=== PATIENT | male | born 1940 | race American Indian/Alaskan Native ===

== ENCOUNTER 2018-08-12 21:00 | Inpatient (IN) | payer MEDICARE ==
[~2018-08-12 21:00] MED LIST: INTROPIN DRIP 800 MG/D5W 250 ML 800 MG/250 ML BAG IV ONE
--- NOTE | 2018-08-12 21:19 | Emergency Department Report ---
ED General Adult HPI - General Chief complaint: Cardiac Arrest/CPR Stated complaint: CARDIAC ARREST Time Seen by Provider: 08/12/18 21:12 Source: EMS Mode of arrival: Stretcher Limitations: Other - History of Present Illness Initial comments: 77 y.o. male with a history of respiratory failure with a trach present, metabolic encephalopathy, hemiplegia status post CVA presents after being found unresponsive at his longterm. Per EMS patient initially was being bagged via his trach that was without a pulse and had return of spontaneous circulation. Patient then lost his pulse again in route and had return of spontaneous regulation again. Upon arrival here in emergency room patient again was noted to be without a pulse. - Related Data Allergies Allergy/AdvReac Type Severity Reaction Status Date / Time No Known Allergies Allergy Verified 08/12/18 21:47 ED Review of Systems ROS: Stated complaint: CARDIAC ARREST Other details as noted in HPI Comment: Unobtainable due to pts medical conditions (unresponsive state) Constitutional: denies: chills, fever Eyes: denies: eye pain, eye discharge, vision change ENT: denies: ear pain, throat pain Respiratory: denies: cough, shortness of breath, wheezing Cardiovascular: denies: chest pain, palpitations Endocrine: no symptoms reported Gastrointestinal: denies: abdominal pain, nausea, diarrhea Genitourinary: denies: urgency, dysuria Musculoskeletal: denies: back pain, joint swelling, arthralgia Skin: denies: rash, lesions Neurological: denies: headache, weakness, paresthesias Psychiatric: denies: anxiety, depression Hematological/Lymphatic: denies: easy bleeding, easy bruising ED Physical Exam - General Limitations: Other General appearance: other (Unresponsive; ) - Head Head exam: Present: atraumatic - Eye Eye exam: Present: other (fixed and dilated ) - ENT ENT exam: Present: other (dry oropharynx) - Neck Neck exam: Present: other (tracheostomy present with no surrounding erythema or exudate) - Respiratory Respiratory exam: Present: other (breath sounds appreciated with bag valve mask ventilation) - Cardiovascular Cardiovascular Exam: Present: other (no pulse present in carotid, femoral , or radial distribution) - GI/Abdominal GI/Abdominal exam: Present: distended, other (PEG tube present with no surrounding erythema or exudate) - Extremities Exam Extremities exam: Present: other (1+ edema present bilaterally) - Neurological Exam Neurological exam: Present: other (GCS 3T; No purposeful movement) - Skin Skin exam: Present: warm. Absent: rash - Central Line Placement Left Femoral Consent Obtained: emergent situation Time Out Performed: Yes Patient Placed on Monitor/Pulse Ox: Yes MD Prep: mask, gown, gloves Central Line Prep: Chlorhexidine scrub Ultrasound Used for Placement: Yes Central Line Lumen Inserted: triple Central Line Position: good blood return, all ports aspirated, flus, sutured in place with 3-0 Patient Tolerated Procedure: well - Chest Tube Chest Tube Location: fifth interspace Size of Turkish Tube (cm): 10 Chest Tube Procedure: betadine prep Anesthesia: 1% Lidocaine Number of Attempts: 1 Time of Successful Intubation: 22:45 Tube Drainage: see nurses notes Tube Sutured to Skin: Yes Post Procedure CXR?: Yes - Intubation Time Out Performed: Yes Laryngoscope: Vivian Size: 4 Tube Placement Confirmation: visualized tube passing t Patient Tolerated Procedure: well, other (pneumothorax; right main stem bronchus placement of ETT) Intubation Complications: difficult intubation ED Medical Decision Making - Lab Data Result diagrams: 08/12/18 21:44 08/12/18 21:44 - EKG Data EKG shows normal: sinus rhythm Rate: tachycardia - EKG Data Interpretation: other (ST elevation in III, and AVF) - Medical Decision Making Case discussed with interventional cardiology who states the patient is a STEMI but patient should be medically managed. Patient noted to have a trach present but despite bagging via the tracheostomy patient continued to have low tidal volumes. The suspicion was that the patient may have had a leak present as he continued to develop subcutaneous emphysema. The decision was made then to intubate the patient orally. After this was achieved patient achieved better tidal volumes. On post intubation x-ray patient was noted to have the presence of a right pneumothorax. She received a percutaneous chest tube here in emergency department which was attached to the Heimlich valve. Patient had reexpansion of the lung with this procedure. - Differential Diagnosis STEMI; NSTEMI; Dehydration; Anemia; Critical Care Time: Yes Critical care time in (mins) excluding proc time.: 70 Critical care attestation.: If time is entered above; I have spent that time in minutes in the direct care of this critically ill patient, excluding procedure time. Critical care time includes time spent with direct bedside care, physician consultation, and frequent reassessments. ED Disposition Clinical Impression: Cardiac arrest, Hypernatremia, Hypotension, Myocardial infarct, Pneumothorax Disposition: DC-09 OP ADMIT IP TO THIS HOSP Is pt being admited?: Yes Does the pt Need Aspirin: No Condition: Critical Referrals: JARETT BALLESTEROS MD [Primary Care Provider] - 3-5 Days Time of Disposition: 00:42
[2018-08-12] MEDS ORDERED: NACL 0.9% 1000 ML 1,000 ML IV ONE (21:21)
[2018-08-12] MEDS ORDERED: LEVOPHED DRIP 4 MG/NS 250 ML 4 MG/250 ML BAG IV ONE ×2 (21:48→23:48)
[2018-08-12 21:57] LABS: Hematocrit 28.9 % (35.5-45.6); Hemoglobin 8.8 gm/dl (11.8-15.2); Mean Corpuscular HGB Conc 31 % (32-34); Mean Corpuscular Volume 92 fl (84-94); Platelet Count 180 K/mm3 (140-440); Red Blood Count 3.12 M/mm3 (3.65-5.03); Red Cell Distribution Width 19.5 % (13.2-15.2)
[2018-08-12 22:01] LABS: Amphetamine Screen,Urine PRESUMPTIVE NEGATIVE; Benzodiazepines Screen,Urine PRESUMPTIVE NEGATIVE; Cannabinoid Screen,Urine PRESUMPTIVE NEGATIVE; Cocaine Screen,Urine PRESUMPTIVE NEGATIVE; Methadone Screen,Urine PRESUMPTIVE NEGATIVE; Opiate Screen,Urine PRESUMPTIVE NEGATIVE
[2018-08-12 22:07] LABS: INR 1.37 (0.87-1.13)
[2018-08-12 22:08] LABS: Partial Thromboplastin Time 35.4 Sec. (24.2-36.6)
[2018-08-12 22:15] LABS: Creatine Kinase MB 2.6 ng/mL (0.0-4.0)
[2018-08-12 22:16] LABS: Calcium 8.6 mg/dL (8.4-10.2)
--- NOTE | 2018-08-12 22:26 | XRay Report ---
PROCEDURE: XR CHEST 1V AP TECHNIQUE: Chest radiograph single view. HISTORY: chest pain COMPARISONS: None . FINDINGS: Heart: Normal. Mediastinum/Vessels: Normal. Lungs/Pleural space: There is a moderate right pneumothorax. There is no pleural effusion.. Bony thorax: No acute osseous abnormality. Life support devices: Endotracheal tube is in the right mainstem bronchus and should be pulled back 4 cm. There is diffuse subcutaneous emphysema.. IMPRESSION: Heart size is normal.. There is a moderate right pneumothorax. There is no pleural effusion.. Endotracheal tube is in the right mainstem bronchus and should be pulled back 4 cm. There is diffuse subcutaneous emphysema.. Dr. Ibrahim was notified by telephone at 10:20 PM This document is electronically signed by Juan Redd MD., Aug 12 2018 10:24:06 PM ET
[2018-08-12 22:30] LABS: Total Cells Counted 100
[2018-08-12 22:31] LABS: Basophils % (Manual) 0 % (0.0-1.8); Myelocytes # (Manual) 0.6 K/mm3
[2018-08-12 22:32] LABS: Platelet Estimate Consistent w Auto
[2018-08-12 22:33] LABS: Anisocytosis Few; Ovalocytes Few
[2018-08-12] MEDS ORDERED: XYLOCAINE 2% INFILTRATI ONE (22:45)
--- NOTE | 2018-08-12 23:31 | XRay Report ---
PROCEDURE: XR CHEST 1V AP TECHNIQUE: Chest radiograph single view. HISTORY: chest pain COMPARISONS: None . FINDINGS: ET tube is been repositioned. Tip appears in satisfactory position above the denton. Previously ident ified right pneumothorax is again noted which appears smaller. Again noted is marked subcutaneous emp hysema throughout the chest and extending to the base of the neck. IMPRESSION: ET tube appears in satisfactory position. Right pneumothorax appears smaller on the current study Marked subcutaneous emphysema This document is electronically signed by Aroldo Moore MD., Aug 12 2018 11:29:14 PM ET
[2018-08-12] MEDS ORDERED: NACL 0.45% 1000 ML 1,000 ML IV SCH (23:45)
--- NOTE | 2018-08-13 00:30 | Cat Scan Report ---
PROCEDURE: CT HEAD/BRAIN WO CON TECHNIQUE: Computerized tomography of the head was performed without contrast material. CT DOSE LENGTH PRODUCT: mGycm HISTORY: unresponsive COMPARISONS: None . FINDINGS: There is diffuse subcutaneous emphysema of the face and neck and temporal scalp regions bilaterally. Skull and scalp: There is no skull fracture. . Paranasal sinuses: Normal . Ventricles and subarachnoid spaces: There is advanced central and cortical atrophy. . Cerebrum: No evidence of hemorrhage, acute infarction or mass . There is chronic deep white matter i schemic gliosis. There there are old lacunar infarct effects in the basal ganglia and thalami bilater ally. Cerebellum and brainstem: No evidence of hemorrhage, acute infarction or mass . Vasculature: There is calcified plaque in the cavernous portions of the internal carotid arteries. . IMPRESSION: There is diffuse subcutaneous emphysema of the face and neck and temporal scalp regions bilaterally. There is no skull fracture. There is advanced central and cortical atrophy. . There is no acute intracranial hemorrhage, edema, mass, mass effect or midline shift. There is chronic deep white matter ischemic gliosis. There are old lacunar infarct effects in the bas al ganglia and thalami bilaterally. This document is electronically signed by Juan Redd MD., Aug 13 2018 12:27:51 AM ET
[2018-08-13] MEDS ORDERED: HEPARIN 10,000 UNITS/10 ML IV ONE (00:40)
[2018-08-13 01:03] LABS: Creatine Kinase MB 7.7 ng/mL (0.0-4.0)
[2018-08-13 01:05] LABS: Hematocrit 29.6 % (35.5-45.6); Hemoglobin 9.2 gm/dl (11.8-15.2)
[2018-08-13 01:12] LABS: Bacteria,Urine 2+ /HPF (Negative); Bilirubin,Urine NEG (Negative); Blood,Urine MOD (Negative); Color,Urine Yellow (Yellow); Urobilinogen,Urine < 2.0 mg/dL (<2.0)
[2018-08-13 01:13] LABS: RBC,Urine > 182.0 /HPF (0.0-6.0); WBC,Urine > 182.0 /HPF (0.0-6.0)
[2018-08-13 01:16] LABS: INR 1.25 (0.87-1.13)
[2018-08-13 01:17] LABS: Partial Thromboplastin Time 37.3 Sec. (24.2-36.6)
[2018-08-13] MEDS ORDERED: SODIUM CHLORIDE FLUSH SYRINGE 10 ML IV PRN (01:34)
[2018-08-13] MEDS ORDERED: D50W (25GM) Syringe IV PRN (01:34)
[2018-08-13] MEDS: HEPARIN/ 0.45% NACL-25,000 UNIT/500 ML 25,000 UNIT/500 ML BAG IV SCH (01:34)
[2018-08-13] MEDS ORDERED: TYLENOL PO PRN (01:34)
[2018-08-13] MEDS ORDERED: ZOFRAN IV PRN (01:34)
[2018-08-13] MEDS: LEVOPHED DRIP 4 MG/NS 250 ML 4 MG/250 ML BAG IV SCH ×3 (01:40→22:30)
--- NOTE | 2018-08-13 01:47 | History and Physical Report ---
History of Present Illness Date of examination: 08/13/18 History of present illness: This is a 77-year-old man with history of CVA, diabetes, seizure, chronic respiratory failure was sent from the care home for cardiac arrest. CPR was started feeling continued in the emergency room. The patient was hypotensive, started on dopamine, Levophed drip. He has a trach, PEG. When he arrived in the emergency room, the trach had a leak, he subsequently had to be intubated. While he was being bagged in the emergency room, he developed subcutaneous emphysema of the face, neck. Patient was found to have a pneumothorax, chest tube was placed. Patient was admitted at [facility] on May 04, he spent 5 weeks there, family state that he had fluid on the brain, he was subsequently trached and pegged and transferred to long-term care facility, he was eating, talking. He was then transferred to care home, he been for 2 weeks now. Review of system is unobtainable PAST MEDICAL HISTORY: CVA, diabetes, seizure PAST SURGICAL HISTORY: PEG SOCIAL HISTORY: Denies alcohol, drugs, tobacco FAMILY HISTORY: Hypertension Medications and Allergies Allergies Allergy/AdvReac Type Severity Reaction Status Date / Time No Known Allergies Allergy Verified 08/12/18 21:47 Home Medications Medication Instructions Recorded Confirmed Last Taken Type Acetaminophen TAB 2 1000units FEEDTUBE Q6HR PRN 08/18/18 08/18/18 Unknown History Amantadine [Symmetrel] 100 mg FEEDTUBE DAILY 08/18/18 08/18/18 08/13/18 History Amlodipine Besylate [Norvasc] 5 mg FEEDTUBE DAILY 08/18/18 08/18/18 08/13/18 History Ascorbic Acid [Vitamin C Oral Liq] 500 mg FEEDTUBE QDAY 08/18/18 08/18/18 08/13/18 History Ascorbic Acid [Vitamin C with Fiordaliza 1 tab FEEDTUBE DAILY 08/18/18 08/18/18 Unknown History Hips] Aspirin BABY CHEW TAB 1 tab FEEDTUBE DAILY 08/18/18 08/18/18 Unknown History Aspirin BABY CHEW TAB 81 mg FEEDTUBE DAILY 08/18/18 08/18/18 08/13/18 History Atorvastatin Calcium [Lipitor] 40 mg FEEDTUBE DAILY 08/18/18 08/18/18 08/13/18 History Benazepril HCl 10 mg FEEDTUBE DAILY 08/18/18 08/18/18 08/13/18 History Bisacodyl [Dulcolax suppos] 10 mg DC QDAY PRN 08/18/18 08/18/18 Unknown History Docusate Sodium [Colace ORAL LIQ] 100 mg FEEDTUBE QDAY PRN 08/18/18 08/18/18 Unknown History Ferrous Sulfate [Ferrous Sulfate 7.5 ml FEEDTUBE DAILY 08/18/18 08/18/18 08/13/18 History 220 MG/5 ML] Glycopyrrolate [Robinul] 2 mg FEEDTUBE Q8H 08/18/18 08/18/18 08/13/18 History Heparin Sod,Porcine/0.9 % NaCl 5,000 units SUB-Q Q8H 08/18/18 08/18/18 Unknown History [Heparin 5,000 Unit/5 ml-Ns] Insulin Glargine,Hum.rec.anlog 40 unit SQ HS 08/18/18 08/18/18 08/12/18 History [Basaglar Kwikpen U-100] Lacosamide [Vimpat] 1 tab FEEDTUBE Q12HR 08/18/18 08/18/18 Unknown History Lipitor 10 mg FEEDTUBE DAILY 08/18/18 08/18/18 Unknown History Mag-Al Plus Suspension 5 ml FEEDTUBE Q4HR PRN 08/18/18 08/19/18 Unknown History Melatonin 3 mg FEEDTUBE HS 08/18/18 08/18/18 Unknown History Sucralfate [Carafate] 1 gm FEEDTUBE Q8H 08/18/18 08/18/18 08/13/18 History Tamsulosin 0.4 mg FEEDTUBE DAILY 08/18/18 08/18/18 Unknown History guaiFENesin 200 mg FEEDTUBE Q4H PRN 08/18/18 08/18/18 Unknown History Active Meds: Active Medications Acetaminophen (Tylenol) 650 mg PO Q4H PRN PRN Reason: Pain MILD(1-3)/Fever >100.5/GREY Dextrose (D50w (25gm) Syringe) 50 ml IV PRN PRN PRN Reason: Hypoglycemia Sodium Chloride (Nacl 0.45% 1000 Ml) 1,000 mls @ 150 mls/hr IV DIRECT LENCHO Heparin Sodium/Sodium Chloride (Heparin/ 0.45% Nacl-25,000 Unit/500 Ml) 25,000 unit in 500 mls @ 20 mls/hr IV TITRATE LENCHO; Protocol Last Admin: 08/13/18 01:34 Dose: 1,000 units/hr, 20 mls/hr Documented by: Dopamine HCl/Dextrose (Intropin Drip 800 Mg/D5w 250 Ml) 800 mg in 250 mls @ 2.722 mls/hr IV TITR ONE; Protocol Stop: 08/16/18 16:50 Last Admin: 08/12/18 21:50 Dose: 20 mcg/kg/min, 27.216 mls/hr Documented by: Norepinephrine (Levophed Drip 4 Mg/Ns 250 Ml) 4 mg in 250 mls @ 7.5 mls/hr IV TITR LENCHO; Protocol Last Admin: 08/13/18 01:40 Dose: 20 mcg/min, 75 mls/hr Documented by: Piperacillin Sod/Tazobactam Sod (Zosyn/Ns 3.375gm/50ml) 3.375 gm in 50 mls @ 100 mls/hr IV Q8HR LENCHO; Protocol Sodium Bicarbonate 150 meq/ (Dextrose) 1,150 mls @ 100 mls/hr IV DIRECT LENCHO Insulin Human Lispro (Humalog) 0 unit SUB-Q Q6HR LENCHO; Protocol Ondansetron HCl (Zofran) 4 mg IV Q8H PRN PRN Reason: Nausea And Vomiting Sodium Chloride (Sodium Chloride Flush Syringe 10 Ml) 10 ml IV BID LENCHO Sodium Chloride (Sodium Chloride Flush Syringe 10 Ml) 10 ml IV PRN PRN PRN Reason: LINE FLUSH Exam - Physical Exam Narrative exam: General Apperance: The patient lying in bed, breathing comfortable, intubated HEENT: Normocephalic, atraumatic. Pupils equally round and reactive to light, unable to do EOM, no sclericterus or JVD or thyromegaly or nodule. , no carotid bruit, mucous membranes moist, unable to examine oral cavity, ET tube in place Heart: S1-S2, regular is rhythm Lungs: Clear to auscultation bilaterally, breathing comfortable Abdomen: Positive bowel sounds, soft, nondistended, no organomegaly Extremities: No edema cyanosis clubbing Skin: no rash, nodule, warm and dry Neuro: Sedated, myoclonic jerks - Constitutional Vitals: Temp Pulse Resp BP Pulse Ox 101 H 20 135/56 100 08/13/18 01:30 08/13/18 01:30 08/13/18 01:30 08/13/18 01:30 Results - Labs CBC & Chem 7: 09/01/18 05:19 09/01/18 05:19 Labs: Abnormal lab results 08/12/18 08/12/18 08/12/18 Range/Units 21:44 21:44 21:44 WBC 15.5 H (4.5-11.0) K/mm3 RBC 3.12 L (3.65-5.03) M/mm3 Hgb 8.8 L (11.8-15.2) gm/dl Hct 28.9 L (35.5-45.6) % MCHC 31 L (32-34) % RDW 19.5 H (13.2-15.2) % Lymphocytes % (Manual) 48.0 H (13.4-35.0) % Lymphocytes # (Manual) 7.4 H (1.2-5.4) K/mm3 PT 17.8 H (12.2-14.9) Sec. INR 1.37 H (0.87-1.13) APTT (24.2-36.6) Sec. Sodium 159 H (137-145) mmol/L Chloride 118.5 H (98-107) mmol/L BUN 34 H (9-20) mg/dL Glucose 161 H (75-100) mg/dL Total Creatine Kinase (55-170) units/L CK-MB (CK-2) (0.0-4.0) ng/mL Troponin T 0.105 H* (0.00-0.029) ng/mL Urine WBC (Auto) (0.0-6.0) /HPF 08/13/18 08/13/18 08/13/18 Range/Units 00:32 00:47 00:47 WBC (4.5-11.0) K/mm3 RBC (3.65-5.03) M/mm3 Hgb 9.2 L (11.8-15.2) gm/dl Hct 29.6 L (35.5-45.6) % MCHC (32-34) % RDW (13.2-15.2) % Lymphocytes % (Manual) (13.4-35.0) % Lymphocytes # (Manual) (1.2-5.4) K/mm3 PT 16.5 H (12.2-14.9) Sec. INR 1.25 H (0.87-1.13) APTT 37.3 H (24.2-36.6) Sec. Sodium (137-145) mmol/L Chloride (98-107) mmol/L BUN (9-20) mg/dL Glucose (75-100) mg/dL Total Creatine Kinase 211 H (55-170) units/L CK-MB (CK-2) 7.7 H (0.0-4.0) ng/mL Troponin T 0.169 H* D (0.00-0.029) ng/mL Urine WBC (Auto) (0.0-6.0) /HPF 08/13/18 Range/Units 00:50 WBC (4.5-11.0) K/mm3 RBC (3.65-5.03) M/mm3 Hgb (11.8-15.2) gm/dl Hct (35.5-45.6) % MCHC (32-34) % RDW (13.2-15.2) % Lymphocytes % (Manual) (13.4-35.0) % Lymphocytes # (Manual) (1.2-5.4) K/mm3 PT (12.2-14.9) Sec. INR (0.87-1.13) APTT (24.2-36.6) Sec. Sodium (137-145) mmol/L Chloride (98-107) mmol/L BUN (9-20) mg/dL Glucose (75-100) mg/dL Total Creatine Kinase (55-170) units/L CK-MB (CK-2) (0.0-4.0) ng/mL Troponin T (0.00-0.029) ng/mL Urine WBC (Auto) > 182.0 H (0.0-6.0) /HPF - Imaging and Cardiology CT Scan - head: report reviewed Assessment and Plan Assessment Cardiac arrest Acute respiratory failure Septic shock Right-sided pneumothorax Abnormal cardiac enzyme Hypernatremia UTI Subcutaneous emphysema of the face, neck Diabetes History of seizure History of CVA Plan Admit to medicine Check cardiac enzymes, echo Patient was started on a heparin drip in the ER Start IV Zosyn, given a dose of Vanco, follow cultures Continue Levophed, dopamine Consult critical care, cardiology Start D5W, monitor sodium level Check fingersticks, start sliding scale Patient with myoclonic jerks, prognosis poor Discussed with family
[2018-08-13 01:59] LABS: Chol/HDL Ratio 7.66 %
[2018-08-13] MEDS ORDERED: ZOSYN/NS 3.375GM/50ML 3.375 GM/50 ML BAG IV SCH (02:00)
[2018-08-13] MEDS ORDERED: SODIUM BICARBONATE 150 MEQ in D5W 1,000 ML IV SCH (02:00)
[2018-08-13] MEDS ORDERED: VANCOMYCIN/NS 1 GM/250 ML 1 GM/250 ML BAG IV ONE (02:05)
[2018-08-13 06:41] LABS: Creatine Kinase MB 10.4 ng/mL (0.0-4.0)
[2018-08-13] MEDS ORDERED: LOVENOX SUB-Q SCH (10:00)
[2018-08-13] MEDS: PEPCID IV SCH ×2 (10:27→22:31)
[2018-08-13] MEDS: D5W 1,000 ML IV SCH ×2 (10:36→23:02)
[2018-08-13 10:48] LABS: Creatine Kinase MB 4.1 ng/mL (0.0-4.0)
--- NOTE | 2018-08-13 11:08 | Consultation ---
History of Present Illness Consult date: 08/13/18 Requesting physician: FRANK ISAAC History of present illness: PULMONARY/CCM CONSULT NOTE (Full dictation # [id number]) Please see dictated notes for full details Medications and Allergies Allergies Allergy/AdvReac Type Severity Reaction Status Date / Time No Known Allergies Allergy Verified 08/12/18 21:47 Active Meds: Active Medications Dextrose (D50w (25gm) Syringe) 50 ml IV PRN PRN PRN Reason: Hypoglycemia Famotidine (Pepcid) 20 mg IV BID LENCHO Last Admin: 08/13/18 10:27 Dose: 20 mg Documented by: Heparin Sodium/Sodium Chloride (Heparin/ 0.45% Nacl-25,000 Unit/500 Ml) 25,000 unit in 500 mls @ 20 mls/hr IV TITRATE LENCHO; Protocol Last Titration: 08/13/18 05:15 Dose: 0 units/hr, 0 mls/hr Documented by: Dopamine HCl/Dextrose (Intropin Drip 800 Mg/D5w 250 Ml) 800 mg in 250 mls @ 2.722 mls/hr IV TITR ONE; Protocol Stop: 08/16/18 16:50 Last Titration: 08/13/18 02:50 Dose: 25 mcg/kg/min, 34.02 mls/hr Documented by: Norepinephrine (Levophed Drip 4 Mg/Ns 250 Ml) 4 mg in 250 mls @ 7.5 mls/hr IV TITR LENCHO; Protocol Last Titration: 08/13/18 10:15 Dose: 2 mcg/min, 7.5 mls/hr Documented by: Dextrose (D5w) 1,000 mls @ 75 mls/hr IV DIRECT LENCHO Last Admin: 08/13/18 10:36 Dose: 75 mls/hr Documented by: Piperacillin Sod/Tazobactam Sod (Zosyn/Ns 3.375gm/50ml) 3.375 gm in 50 mls @ 100 mls/hr IV Q8HR LENCHO; Protocol Insulin Human Lispro (Humalog) 0 unit SUB-Q Q6HR LENCHO; Protocol Ondansetron HCl (Zofran) 4 mg IV Q8H PRN PRN Reason: Nausea And Vomiting Sodium Chloride (Sodium Chloride Flush Syringe 10 Ml) 10 ml IV BID LENCHO Sodium Chloride (Sodium Chloride Flush Syringe 10 Ml) 10 ml IV PRN PRN PRN Reason: LINE FLUSH Physical Examination Vital signs: Vital Signs Pulse Ox 100 08/12/18 21:02 Results - Laboratory Findings CBC and BMP: 08/13/18 00:47 08/13/18 10:10 ABG POC ABG pH 7.554 (7.35-7.45) H 08/13/18 06:35 POC ABG pCO2 33.5 (35-45) L 08/13/18 06:35 POC ABG pO2 220 (80-105) H 08/13/18 06:35 POC ABG HCO3 29.6 (22-26 mml/L) 08/13/18 06:35 POC ABG Total CO2 31 (23-27mmol/L) 08/13/18 06:35 POC ABG O2 Sat 100 08/13/18 06:35 PT/INR, D-dimer PT 16.5 Sec. (12.2-14.9) H 08/13/18 00:47 INR 1.25 (0.87-1.13) H 08/13/18 00:47 Abnormal lab findings: Abnormal Labs 08/12/18 08/12/18 08/12/18 21:44 21:44 21:44 WBC 15.5 H RBC 3.12 L Hgb 8.8 L Hct 28.9 L MCHC 31 L RDW 19.5 H Lymphocytes % (Manual) 48.0 H Lymphocytes # (Manual) 7.4 H PT 17.8 H INR 1.37 H APTT POC ABG pH POC ABG pCO2 POC ABG pO2 Sodium 159 H Chloride 118.5 H BUN 34 H Glucose 161 H Total Creatine Kinase CK-MB (CK-2) Troponin T 0.105 H* Cholesterol LDL Cholesterol Direct HDL Cholesterol Urine WBC (Auto) 08/13/18 08/13/18 08/13/18 00:32 00:47 00:47 WBC RBC Hgb 9.2 L Hct 29.6 L MCHC RDW Lymphocytes % (Manual) Lymphocytes # (Manual) PT 16.5 H INR 1.25 H APTT 37.3 H POC ABG pH POC ABG pCO2 POC ABG pO2 Sodium Chloride BUN Glucose Total Creatine Kinase 211 H CK-MB (CK-2) 7.7 H Troponin T 0.169 H* D Cholesterol 46 L LDL Cholesterol Direct 17 L HDL Cholesterol 6 L Urine WBC (Auto) 08/13/18 08/13/18 08/13/18 00:50 02:25 05:34 WBC RBC Hgb Hct MCHC RDW Lymphocytes % (Manual) Lymphocytes # (Manual) PT INR APTT POC ABG pH 7.503 H POC ABG pCO2 POC ABG pO2 253 H Sodium Chloride BUN Glucose Total Creatine Kinase 311 H CK-MB (CK-2) 10.4 H Troponin T 0.283 H* D Cholesterol LDL Cholesterol Direct HDL Cholesterol Urine WBC (Auto) > 182.0 H 08/13/18 08/13/18 06:35 10:10 WBC RBC Hgb Hct MCHC RDW Lymphocytes % (Manual) Lymphocytes # (Manual) PT INR APTT POC ABG pH 7.554 H POC ABG pCO2 33.5 L POC ABG pO2 220 H Sodium Chloride BUN Glucose Total Creatine Kinase 309 H CK-MB (CK-2) 4.1 H Troponin T 0.470 H* D Cholesterol LDL Cholesterol Direct HDL Cholesterol Urine WBC (Auto)
--- NOTE | 2018-08-13 11:30 | Consultation ---
History of Present Illness Consult date: 08/13/18 Requesting physician: FRANK ISAAC Consult reason: cardiac arrest History of present illness: The pt is a 77-year-old male NHR with a past medical history of CVA, HTN, HLP, diabetes, seizure, chronic respiratory failure. He is previously unknown to our practice. He is intubated and unresponsive with no family at bedside on evaluation and thus HPI is obtained per the chart. Pt was sent from the group home for cardiac arrest. Per EMS patient initially was being bagged via his trach and was without a pulse and CPR was started, ROSC obtained. Patient then lost his pulse again en route and had ROSC again. Upon arrival in emergency room patient again was noted to be without a pulse and CPR was resumed, ROSC obtai karolyn. It is unclear what rhythm the pt was in during his multiple cardiac arrests. The patient was noted ot be hypotensive, started on dopamine, Levophed drip. He has a trach, PEG. When he arrived in the emergency room, the trach had a leak, he subsequently had to be intubated. While he was being bagged in the emergency room, he developed subcutaneous emphysema of the face, neck. Patient was found to have a pneumothorax, chest tube was placed. Patient was admitted at [facility] in May, he spent 5 weeks there, family states that he had fluid on the brain, he was subsequently trached and pegged and transferred to long-term care facility, he was eating, talking. He was then transferred to group home where he has been for 2 weeks now. [facility] records reviewed - pt presented to [facility] on 05/06 for seizures and acute encephalopathy due to status epilepticus. Pt had originally presented to an OSH on 05/03 and was found to have a small lacunar stroke, and developed seizures on 05/05 before being brought to [facility]. Pts course complicated by seizure management, subacute embolic CVAs, and respiratory failure. PT has a history of HTN, HLD, DM, BPH, prior CVA with R leg residual. GLORIA done 05/12/2018 showed EF 60-65%, no thromcus, negative bubble study, mild TR, mild MR. TTE done 05/08/2018 showed EF 60%, mild LVH, grade 1 diastolic dysfunction, negative bubble study. Past History Past Medical History: diabetes, hypertension, hyperlipidemia, seizures, stroke Medications and Allergies Allergies Allergy/AdvReac Type Severity Reaction Status Date / Time No Known Allergies Allergy Verified 08/12/18 21:47 Active Meds: Active Medications Dextrose (D50w (25gm) Syringe) 50 ml IV PRN PRN PRN Reason: Hypoglycemia Famotidine (Pepcid) 20 mg IV BID LENCHO Last Admin: 08/13/18 10:27 Dose: 20 mg Documented by: Heparin Sodium/Sodium Chloride (Heparin/ 0.45% Nacl-25,000 Unit/500 Ml) 25,000 unit in 500 mls @ 20 mls/hr IV TITRATE LENCHO; Protocol Last Titration: 08/13/18 05:15 Dose: 0 units/hr, 0 mls/hr Documented by: Dopamine HCl/Dextrose (Intropin Drip 800 Mg/D5w 250 Ml) 800 mg in 250 mls @ 2.722 mls/hr IV TITR ONE; Protocol Stop: 08/16/18 16:50 Last Titration: 08/13/18 02:50 Dose: 25 mcg/kg/min, 34.02 mls/hr Documented by: Norepinephrine (Levophed Drip 4 Mg/Ns 250 Ml) 4 mg in 250 mls @ 7.5 mls/hr IV TITR LENCHO; Protocol Last Titration: 08/13/18 10:30 Dose: 0 mcg/min, 0 mls/hr Documented by: Dextrose (D5w) 1,000 mls @ 75 mls/hr IV DIRECT LENCHO Last Admin: 08/13/18 10:36 Dose: 75 mls/hr Documented by: Piperacillin Sod/Tazobactam Sod (Zosyn/Ns 3.375gm/50ml) 3.375 gm in 50 mls @ 100 mls/hr IV Q8HR LENCHO; Protocol Insulin Human Lispro (Humalog) 0 unit SUB-Q Q6HR LENCHO; Protocol Ondansetron HCl (Zofran) 4 mg IV Q8H PRN PRN Reason: Nausea And Vomiting Sodium Chloride (Sodium Chloride Flush Syringe 10 Ml) 10 ml IV BID LENCHO Sodium Chloride (Sodium Chloride Flush Syringe 10 Ml) 10 ml IV PRN PRN PRN Reason: LINE FLUSH Review of Systems ROS unobtainable: due to endotracheal tube, due to mental status Physical Examination Vital Signs Pulse Ox 100 08/12/18 21:02 General appearance: other (twitching, nonresponsive, intubated) Cardiac: Positive: Regular Rhythm, S1/S2, Tachycardia Lungs: Positive: Decreased Breath Sounds, Oxygen, Ventilated Respirations Neuro: Positive: Other (twitching, unresponsive, intubated) Extremities: Absent: edema Results 08/14/18 04:03 08/14/18 04:03 Cardiac Enzymes 08/12/18 08/13/18 08/13/18 Range/Units 21:44 00:32 05:34 CK-MB (CK-2) 2.6 7.7 H 10.4 H (0.0-4.0) ng/mL 08/13/18 Range/Units 10:10 CK-MB (CK-2) 4.1 H (0.0-4.0) ng/mL Coagulation 08/12/18 08/13/18 Range/Units 21:44 00:47 PT 17.8 H 16.5 H (12.2-14.9) Sec. INR 1.37 H 1.25 H (0.87-1.13) APTT 35.4 37.3 H (24.2-36.6) Sec. Lipids 08/13/18 Range/Units 00:32 Triglycerides 62 (2-149) mg/dL Cholesterol 46 L (50-199) mg/dL HDL Cholesterol 6 L (40-59) mg/dL Cholesterol/HDL Ratio 7.66 % CBC 08/12/18 08/13/18 Range/Units 21:44 00:47 WBC 15.5 H (4.5-11.0) K/mm3 RBC 3.12 L (3.65-5.03) M/mm3 Hgb 8.8 L 9.2 L (11.8-15.2) gm/dl Hct 28.9 L 29.6 L (35.5-45.6) % Plt Count 180 383 D (140-440) K/mm3 Lymph # Delivery Room Clerk Comprehensive Metabolic Panel 08/12/18 Range/Units 21:44 Sodium 159 H (137-145) mmol/L Potassium 3.7 (3.6-5.0) mmol/L Chloride 118.5 H (98-107) mmol/L Carbon Dioxide 23 (22-30) mmol/L BUN 34 H (9-20) mg/dL Creatinine 1.4 (0.8-1.5) mg/dL Glucose 161 H (75-100) mg/dL Calcium 8.6 (8.4-10.2) mg/dL - Imaging and Cardiology Echo: report reviewed (GLORIA done 05/12/2018 showed EF 60-65%, no thromcus, negative bubble study, mild TR, mild MR. TTE done 05/08/2018 showed EF 60%, mild LVH, grade 1 diastolic dysfunction, negative bubble study. ) EKG: report reviewed, image reviewed EKG interpretations - Telemetry EKG Rhythm: Sinus Tachycardia - EKG Sinus rhythms and dysrhythmias: sinus tachycardia Repolarization changes or abnormalities: ST or T wave suggestive of ischemia Assessment and Plan Pt presented s/p multiple cardiac arrests with prologned down time. Pt's initial ECG was suggestive of ischemia/infarction, repeat ECG shows resolution of ST changes, Ian are trending upwards. He is currently unresponsive, intubated, hypotensive, tachycardic, febrile and appears to be having seizure like activity. Will continue with conservative cardiac management at this time given overall poor prognosis. Agree with heparin gtt. Heparin gtt was held overnight due to hematuria. However, hematuria appears to be resolved at this time. Resume heparin gtt and monitor H/H. Initiate ASA, consider addition of BB if BPs permit. Obtain CMP and consider addition of statin if LFTs permit. Obtain echo. Further recs to follow per hospital course. The patient has been seen in conjunction with Dr. Monsivais who agrees with the assessment and plan of care. - Patient Problems (1) Cardiac arrest Current Visit: Yes Status: Acute (2) ACS (acute coronary syndrome) Current Visit: Yes Status: Acute (3) Seizure disorder Current Visit: Yes Status: Acute (4) Altered mental state Current Visit: Yes Status: Acute (5) Acute and chronic respiratory failure Current Visit: Yes Status: Acute (6) Hypotension Current Visit: Yes Status: Acute (7) Pneumothorax Current Visit: Yes Status: Acute (8) History of CVA (cerebrovascular accident) Current Visit: Yes Status: Chronic (9) Sinus tachycardia Current Visit: Yes Status: Acute (10) Leukocytosis Current Visit: Yes Status: Acute (11) Fever Current Visit: Yes Status: Acute (12) Anemia Current Visit: Yes Status: Acute (13) MAYLIN (acute kidney injury) Current Visit: Yes Status: Acute (14) Hypernatremia Current Visit: Yes Status: Acute (15) History of tracheostomy Current Visit: Yes Status: Chronic
[2018-08-13 11:37] LABS: Calcium 8.2 mg/dL (8.4-10.2)
[2018-08-13] MEDS: HumaLOG SUB-Q SCH ×2 (12:00→18:09)
[2018-08-13] MEDS ORDERED: ATIVAN ONE (12:03)
--- NOTE | 2018-08-13 12:06 | Progress Note ---
Assessment and Plan Assessment and plan: 69-year-old man with a history of chronic respiratory failure who is status post trach, per his family the trach was being downsized -The patient developed respiratory distress at home, EMS was called, EMS was trying to back 3 and refusing some obstruction. He was pulseless 2. Received CPR and had return of spontaneous circulation 2. Upon arrival in the ER the patient was again noted to not have a pulse he received CPR, kilocalorie volumes on the tracheostomy which is suspicious for a week as he had a continuous emphysema. Therefore the patient was orally intubated. He was found to have a right pneumothorax and received percutaneous chest using the easy Acute on chronic respiratory failure on mechanical ventilation less than 96 hours Trach has been removed patient is orally intubated, continue ventilator management per pulmonology Right pneumothorax Status post chest using Anoxic brain injury and status epilepticus Patient was noted to be having seizures, he received Ativan and Keppra, neurology consult, EKG ordered . Hypernatremia/free water deficits Continue free water via G-tube, continue hypotonic IV solutio acute kidney injury likely due to ATN Nephrology consult, continue IV fluid, avoid renal toxic agents Acute NM -Likely a type II NM Elevated troponin unit after patient has had cardiac arrest 3, expected ou tcome, cardiology consult appreciated, continue heparin drip, aspirin and statin -Patient would have to clinically improved undergo any coronary risk stratification Severe malnutrition Dietitian consult, continue tube feedings UTI/sepsis Continue antibiotics, follow-up urine cultures DVT prophylaxis; patient is fully anticoagulated on heparin drip History Interval history: Patient remains intubated He had episodes of shaking of his head and neck that resolved with Ativan He remains nonresponsive No fevers No vomiting Hospitalist Physical - Physical exam Narrative exam: General.: Obtunded HEENT: Moist mucous membranes, no lymphadenopathy Neck: supple, dressing noted over his neck, trach has been removed Cardiac: S1-S2 heard Lungs: clear to auscultation bilaterally Abdomen: soft , nondistended, bowel sounds positive Extremities: no edema clubbing or cyanosis Skin: Dressing noted on lower extremities Neurologic: upward gaze, pupils are sluggish, patient is lacking most reflexes, he is nonresponsive to painful stimuli, extremities are flaccid Psych: Obtunded - Constitutional Vitals: Temp Pulse Resp BP Pulse Ox 102.4 F H 114 H 22 113/53 100 05/16/19 08:00 08/13/18 10:41 08/13/18 10:41 08/13/18 10:41 08/13/18 10:41 General appearance: Present: other (twitching, nonresponsive, intubated) Results - Labs CBC & Chem 7: 08/14/18 04:03 08/14/18 04:03 Labs: Laboratory Last Values WBC 15.5 K/mm3 (4.5-11.0) H 08/12/18 21:44 RBC 3.12 M/mm3 (3.65-5.03) L 08/12/18 21:44 Hgb 9.2 gm/dl (11.8-15.2) L 08/13/18 00:47 Hct 29.6 % (35.5-45.6) L 08/13/18 00:47 MCV 92 fl (84-94) 08/12/18 21:44 MCH 28 pg (28-32) 08/12/18 21:44 MCHC 31 % (32-34) L 08/12/18 21:44 RDW 19.5 % (13.2-15.2) H 08/12/18 21:44 Plt Count 383 K/mm3 (140-440) D 08/13/18 00:47 Lymph # Social Science Manager 08/12/18 21:44 Add Manual Diff Complete 08/12/18 21:44 Total Counted 100 08/12/18 21:44 Seg Neuts % (Manual) 44.0 % (40.0-70.0) 08/12/18 21:44 0 % 08/12/18 21:44 48.0 % (13.4-35.0) H 08/12/18 21:44 Reactive Lymphs % (Man) 0 % 08/12/18 21:44 2.0 % (0.0-7.3) 08/12/18 21:44 1.0 % (0.0-4.3) 08/12/18 21:44 0 % (0.0-1.8) 08/12/18 21:44 1.0 % 08/12/18 21:44 4.0 % 08/12/18 21:44 0 % 08/12/18 21:44 0 % 08/12/18 21:44 Nucleated RBC % Not Reportable 08/12/18 21:44 Seg Neutrophils # Man 6.8 K/mm3 (1.8-7.7) 08/12/18 21:44 Band Neutrophils # 0.0 K/mm3 08/12/18 21:44 7.4 K/mm3 (1.2-5.4) H 08/12/18 21:44 Abs React Lymphs (Man) 0.0 K/mm3 08/12/18 21:44 0.3 K/mm3 (0.0-0.8) 08/12/18 21:44 0.2 K/mm3 (0.0-0.4) 08/12/18 21:44 0.0 K/mm3 (0.0-0.1) 08/12/18 21:44 0.2 K/mm3 08/12/18 21:44 0.6 K/mm3 08/12/18 21:44 0.0 K/mm3 08/12/18 21:44 Blast Cells # 0.0 K/mm3 08/12/18 21:44 WBC Morphology Not Reportable 08/12/18 21:44 Hypersegmented Neuts Not Reportable 08/12/18 21:44 Hyposegmented Neuts Not Reportable 08/12/18 21:44 Hypogranular Neuts Not Reportable 08/12/18 21:44 Not Reportable 08/12/18 21:44 Not Reportable 08/12/18 21:44 Not Reportable 08/12/18 21:44 Not Reportable 08/12/18 21:44 Not Reportable 08/12/18 21:44 Not Reportable 08/12/18 21:44 Consistent w auto 08/12/18 21:44 Not Reportable 08/12/18 21:44 Plt Clumps, EDTA Not Reportable 08/12/18 21:44 Not Reportable 08/12/18 21:44 Not Reportable 08/12/18 21:44 Not Reportable 08/12/18 21:44 Plt Morphology Comment Not Reportable 08/12/18 21:44 RBC Morphology Not Reportable 08/12/18 21:44 Dimorphic RBCs Not Reportable 08/12/18 21:44 Not Reportable 08/12/18 21:44 Not Reportable 08/12/18 21:44 Not Reportable 08/12/18 21:44 Few 08/12/18 21:44 Not Reportable 08/12/18 21:44 Not Reportable 08/12/18 21:44 Not Reportable 08/12/18 21:44 Not Reportable 08/12/18 21:44 Not Reportable 08/12/18 21:44 Not Reportable 08/12/18 21:44 Not Reportable 08/12/18 21:44 Few 08/12/18 21:44 Not Reportable 08/12/18 21:44 Not Reportable 08/12/18 21:44 Not Reportable 08/12/18 21:44 Not Reportable 08/12/18 21:44 Not Reportable 08/12/18 21:44 Not Reportable 08/12/18 21:44 Few 08/12/18 21:44 Acanthocytes (Spur) Not Reportable 08/12/18 21:44 Rouleaux Not Reportable 08/12/18 21:44 Not Reportable 08/12/18 21:44 Not Reportable 08/12/18 21:44 Not Reportable 08/12/18 21:44 Not Reportable 08/12/18 21:44 Hem Pathologist Commnt No 08/12/18 21:44 PT 16.5 Sec. (12.2-14.9) H 08/13/18 00:47 INR 1.25 (0.87-1.13) H 08/13/18 00:47 APTT 37.3 Sec. (24.2-36.6) H 08/13/18 00:47 POC ABG pH 7.554 (7.35-7.45) H 08/13/18 06:35 POC ABG pCO2 33.5 (35-45) L 08/13/18 06:35 POC ABG pO2 220 (80-105) H 08/13/18 06:35 POC ABG HCO3 29.6 (22-26 mml/L) 08/13/18 06:35 POC ABG Total CO2 31 (23-27mmol/L) 08/13/18 06:35 POC ABG O2 Sat 100 08/13/18 06:35 POC ABG Base Excess 7 ((-2) - (+3)mmol/L) 08/13/18 06:35 60 % 08/13/18 06:35 Sodium 158 mmol/L (137-145) H 08/13/18 10:10 Potassium 4.0 mmol/L (3.6-5.0) 08/13/18 10:10 Chloride 117.1 mmol/L (98-107) H 08/13/18 10:10 Carbon Dioxide 29 mmol/L (22-30) 08/13/18 10:10 16 mmol/L 08/13/18 10:10 BUN 53 mg/dL (9-20) H 08/13/18 10:10 2.0 mg/dL (0.8-1.5) H 08/13/18 10:10 Estimated GFR 39 ml/min 08/13/18 10:10 27 % 08/13/18 10:10 Glucose 247 mg/dL (75-100) H 08/13/18 10:10 Calcium 8.2 mg/dL (8.4-10.2) L 08/13/18 10:10 309 units/L (55-170) H 08/13/18 10:10 CK-MB (CK-2) 4.1 ng/mL (0.0-4.0) H 08/13/18 10:10 CK-MB (CK-2) Rel Index 1.3 (0-4) 08/13/18 10:10 0.470 ng/mL (0.00-0.029) H* D 08/13/18 10:10 Triglycerides 62 mg/dL (2-149) 08/13/18 00:32 Cholesterol 46 mg/dL (50-199) L 08/13/18 00:32 17 mg/dL (50-130) L 08/13/18 00:32 6 mg/dL (40-59) L 08/13/18 00:32 7.66 % 08/13/18 00:32 Yellow (Yellow) 08/13/18 00:50 Cloudy (Clear) 08/13/18 00:50 7.0 (5.0-7.0) 08/13/18 00:50 Ur Specific Lynn 1.025 (1.003-1.030) 08/13/18 00:50 100 mg/dl mg/dL (Negative) 08/13/18 00:50 50 mg/dL (Negative) 08/13/18 00:50 Tr mg/dL (Negative) 08/13/18 00:50 Mod (Negative) 08/13/18 00:50 Neg (Negative) 08/13/18 00:50 Neg (Negative) 08/13/18 00:50 < 2.0 mg/dL (<2.0) 08/13/18 00:50 Ur Leukocyte Esterase Mod (Negative) 08/13/18 00:50 > 182.0 /HPF (0.0-6.0) H 08/13/18 00:50 > 182.0 /HPF (0.0-6.0) 08/13/18 00:50 2+ /HPF (Negative) 08/13/18 00:50 3+ /HPF 08/13/18 00:50 Presumptive negative 08/12/18 21:30 Presumptive negative 08/12/18 21:30 Ur Barbiturates Screen Presumptive negative 08/12/18 21:30 Ur Phencyclidine Scrn Presumptive negative 08/12/18 21:30 Ur Amphetamines Screen Presumptive negative 08/12/18 21:30 U Benzodiazepines Scrn Presumptive negative 08/12/18 21:30 Presumptive negative 08/12/18 21:30 U Marijuana (THC) Screen Presumptive negative 08/12/18 21:30 Disclamer 08/12/18 21:30 Blood Type O POSITIVE 08/12/18 21:44 Antibody Screen Negative 08/12/18 21:44 Active Medications - Current Medications Current Medications: Generic Name Dose Route Start Last Admin Trade Name Freq PRN Reason Stop Dose Admin Acetaminophen 650 mg 08/13/18 11:40 Tylenol PO Q6H PRN Fever >101 Aspirin 300 mg 08/13/18 12:00 Aspirin CO QDAY LENCHO Dextrose 50 ml 08/13/18 01:34 D50w (25gm) Syringe IV PRN PRN Hypoglycemia Famotidine 20 mg 08/13/18 10:00 08/13/18 10:27 Pepcid IV 20 mg BID LENCHO Administration Heparin Sodium/Sodium Chloride 25,000 unit in 500 mls @ 20 mls/hr 08/13/18 01:00 08/13/18 05:15 Heparin/ 0.45% Nacl-25,000 Unit/500 Ml IV 0 units/hr TITRATE LENCHO 0 mls/hr Titration Protocol 1,000 UNITS/HR Dopamine HCl/Dextrose 800 mg in 250 mls @ 2.722 mls/hr 08/12/18 21:00 08/13/18 02:50 Intropin Drip 800 Mg/D5w 250 Ml IV 08/16/18 16:50 25 mcg/kg/min TITR ONE 34.02 mls/hr Titration Protocol 2 MCG/KG/MIN Norepinephrine 4 mg in 250 mls @ 7.5 mls/hr 08/12/18 21:00 08/13/18 10:30 Levophed Drip 4 Mg/Ns 250 Ml IV 0 mcg/min TITR LENCHO 0 mls/hr Titration Protocol 2 MCG/MIN Dextrose 1,000 mls @ 100 mls/hr 08/13/18 03:00 08/13/18 10:36 D5w IV 75 mls/hr DIRECT LENCHO Administration Piperacillin Sod/Tazobactam Sod 3.375 gm in 50 mls @ 100 mls/hr 08/13/18 14:00 Zosyn/Ns 3.375gm/50ml IV Q8HR LENCHO Protocol Sodium Chloride 1,000 mls @ 100 mls/hr 08/13/18 12:00 Nacl 0.9% 1000 Ml IV 08/14/18 21:59 DIRECT LENCHO Insulin Human Lispro 0 unit 08/13/18 06:00 Humalog SUB-Q Q6HR [facility] Protocol Ondansetron HCl 4 mg 08/13/18 01:34 Zofran IV Q8H PRN Nausea And Vomiting Sodium Chloride 10 ml 08/13/18 10:00 Sodium Chloride Flush Syringe 10 Ml IV BID LENCHO Sodium Chloride 10 ml 08/13/18 01:34 Sodium Chloride Flush Syringe 10 Ml IV PRN PRN LINE FLUSH
[2018-08-13] MEDS ORDERED: VASELINE LIP THERAPY TP PRN (12:21)
[2018-08-13] MEDS ORDERED: DIPRIVAN 10 MG/ML 1,000 MG/100 ML BOTTLE IV SCH (13:00)
--- NOTE | 2018-08-13 13:15 | XRay Report ---
AP CHEST: HISTORY: Endotracheal tube placement The endotracheal tube terminates 5.5 cm superior to the denton. The nasogastric tube is followed to the mid stomach. Right Heimlich chest tube is unchanged. The lungs are clear. No pneumothorax is visualized. Subcutaneous emphysema in the chest wall has decreased significantly since yesterday's exam. IMPRESSION: Lines and tubes as described. No acute process of the chest.
[2018-08-13] MEDS ORDERED: ATIVAN IV PRN (13:43)
[2018-08-13 13:44] LABS: C-Reactive Protein 16.9 mg/dL (0.00-1.30)
--- NOTE | 2018-08-13 13:49 | Event Note ---
Date: 08/13/18 reviewed repeat CXR No pneumothorax seen small bore catheter remains in place - will continue wall suction but hold on larger bore chest tube (discussed with surgeon)
[2018-08-13] MEDS ORDERED: KEPPRA 1,000 MG in D5W 100 ML IV ONE (14:40)
[2018-08-13] MEDS ORDERED: KEPPRA 500 MG in D5W 100 ML IV SCH (15:00)
[2018-08-13] MEDS ORDERED: PANCREAZE DR 10,500 UNIT FEEDTUBE PRN (15:55)
[2018-08-13] MEDS ORDERED: SIMPLE SYRUP FEEDTUBE PRN ×2 (15:55)
[2018-08-13] MEDS ORDERED: SODIUM BICARBONATE FEEDTUBE PRN (15:55)
[2018-08-13] MEDS: ZOSYN/NS 3.375GM/50ML 3.375 GM/50 ML BAG IV SCH ×2 (15:59→22:31)
[2018-08-13] MEDS: NACL 0.9% 1000 ML 1,000 ML IV SCH (16:02)
[2018-08-13] MEDS: TYLENOL PO PRN (16:09)
--- NOTE | 2018-08-13 16:30 | XRay Report ---
PROCEDURE: XR CHEST 1V AP TECHNIQUE: Chest radiograph single view. HISTORY: picc placement COMPARISONS: Comparison made to today's earlier exam . FINDINGS: ET and NG tubes appear in satisfactory position. Again noted is a chest tube overlying the margin of the right hemithorax. No visible pneumothorax. There is right subcutaneous emphysema. PICC line appea rs in satisfactory position overlying the SVC. No acute infiltrate identified. Cardiac and mediastina l contours are unremarkable IMPRESSION: PICC line and other life support devices in satisfactory position This document is electronically signed by Aroldo Moore MD., Aug 13 2018 04:29:10 PM ET
--- NOTE | 2018-08-13 17:45 | Consultation ---
History of Present Illness Consult date: 08/13/18 Chief complaint: seizure, prolonged down time History of present illness: This is a 77 YO M with known seizures, stroke who presented after having a cardiac arrest at the shelter. The details of down time are not clear but pt apparently was not aerating by trach and was intubated, suggest prolonged time. Family at bedside giving some hisotry. PT currently sedated on propfol, not overbreathing the ventilator. Past History Past Medical History: diabetes, hypertension, hyperlipidemia, seizures, stroke Past Surgical History: Other (trach and PEG) Social history: other (at shelter) Family history: hypertension Medications and Allergies Allergies Allergy/AdvReac Type Severity Reaction Status Date / Time No Known Allergies Allergy Verified 08/12/18 21:47 Active Meds: Active Medications Acetaminophen (Tylenol) 650 mg PO Q6H PRN PRN Reason: Fever >101 Last Admin: 08/13/18 16:09 Dose: 650 mg Documented by: Lipase/Protease/Amylase (Pancreaze Dr 10,500 Unit) 1 each FEEDTUBE PRN PRN PRN Reason: For Clogged Feeding Tube Aspirin (Aspirin) 300 mg CA QDAY LENCHO Dextrose (D50w (25gm) Syringe) 50 ml IV PRN PRN PRN Reason: Hypoglycemia Famotidine (Pepcid) 20 mg IV BID LENCHO Last Admin: 08/13/18 10:27 Dose: 20 mg Documented by: Hydrophilic Ointment (Vaseline Lip Therapy) 1 applic TP Q2HR PRN PRN Reason: Dry Lips Heparin Sodium/Sodium Chloride (Heparin/ 0.45% Nacl-25,000 Unit/500 Ml) 25,000 unit in 500 mls @ 20 mls/hr IV TITRATE LENCHO; Protocol Last Titration: 08/13/18 05:15 Dose: 0 units/hr, 0 mls/hr Documented by: Dopamine HCl/Dextrose (Intropin Drip 800 Mg/D5w 250 Ml) 800 mg in 250 mls @ 2.722 mls/hr IV TITR ONE; Protocol Stop: 08/16/18 16:50 Last Titration: 08/13/18 02:50 Dose: 25 mcg/kg/min, 34.02 mls/hr Documented by: Norepinephrine (Levophed Drip 4 Mg/Ns 250 Ml) 4 mg in 250 mls @ 7.5 mls/hr IV TITR LENCHO; Protocol Last Titration: 08/13/18 10:30 Dose: 0 mcg/min, 0 mls/hr Documented by: Dextrose (D5w) 1,000 mls @ 100 mls/hr IV DIRECT LENCHO Last Admin: 08/13/18 10:36 Dose: 75 mls/hr Documented by: Piperacillin Sod/Tazobactam Sod (Zosyn/Ns 3.375gm/50ml) 3.375 gm in 50 mls @ 100 mls/hr IV Q8HR LENCHO; Protocol Last Admin: 08/13/18 15:59 Dose: 100 mls/hr Documented by: Sodium Chloride (Nacl 0.9% 1000 Ml) 1,000 mls @ 100 mls/hr IV DIRECT LENCHO Stop: 08/14/18 21:59 Last Admin: 08/13/18 16:02 Dose: 100 mls/hr Documented by: Propofol (Diprivan 10 Mg/Ml) 1,000 mg in 100 mls @ 2.177 mls/hr IV TITR LENCHO; Protocol Last Admin: 08/13/18 16:02 Dose: 5 mcg/kg/min, 2.177 mls/hr Documented by: Insulin Human Lispro (Humalog) 0 unit SUB-Q Q6HR LENCHO; Protocol Levetiracetam (Keppra) 1,000 mg PO BID LENCHO Lorazepam (Ativan) 2 mg IV Q1H PRN PRN Reason: Seizures Stop: 08/14/18 13:42 Last Admin: 08/13/18 12:10 Dose: 2 mg Documented by: Multi-Ingred Cream/Lotion/Oil/Oint (Artificial Tears Ophth Oint) 1 applic OU Q4HR PRN PRN Reason: Dry Eye(s) Ondansetron HCl (Zofran) 4 mg IV Q8H PRN PRN Reason: Nausea And Vomiting Simple Syrup (Simple Syrup) 15 ml FEEDTUBE PRN PRN PRN Reason: Hypoglycemia Simple Syrup (Simple Syrup) 30 ml FEEDTUBE PRN PRN PRN Reason: Hypoglycemia Sodium Bicarbonate (Sodium Bicarbonate) 325 mg FEEDTUBE PRN PRN PRN Reason: For Clogged Feeding Tube Sodium Chloride (Sodium Chloride Flush Syringe 10 Ml) 10 ml IV BID LENCHO Sodium Chloride (Sodium Chloride Flush Syringe 10 Ml) 10 ml IV PRN PRN PRN Reason: LINE FLUSH Review of Systems ROS unobtainable: due to mental status Physical Examination - Vital Signs Vital Signs: Vital Signs Pulse Ox 100 08/12/18 21:02 - Constitutional General appearance: comfortable - EENT EENT: Present: PERRL, mucous membranes moist - Respiratory Respiratory: Present: lungs clear - Gastrointestinal Gastrointestinal: Present: normoactive bowel sounds - Neurologic Cranial nerve examination: PERRL, EOMI, face symmetric Speech examination: other (sedated and intubated) Sensorimotor examination: intact Detailed motor examination: other (no spontaneous movement) Reflex and gait examination: ataxic gate Results - Laboratory Findings CBC and BMP: 08/13/18 00:47 08/13/18 10:10 Abnormal Lab Findings: Abnormal Labs 08/12/18 08/12/18 08/12/18 21:44 21:44 21:44 WBC 15.5 H RBC 3.12 L Hgb 8.8 L Hct 28.9 L MCHC 31 L RDW 19.5 H Lymphocytes % (Manual) 48.0 H Lymphocytes # (Manual) 7.4 H PT 17.8 H INR 1.37 H APTT POC ABG pH POC ABG pCO2 POC ABG pO2 Sodium 159 H Chloride 118.5 H BUN 34 H Creatinine Glucose 161 H Lactic Acid Calcium Magnesium Total Creatine Kinase CK-MB (CK-2) Troponin T 0.105 H* C-Reactive Protein Cholesterol LDL Cholesterol Direct HDL Cholesterol Urine WBC (Auto) 08/13/18 08/13/18 08/13/18 00:32 00:47 00:47 WBC RBC Hgb 9.2 L Hct 29.6 L MCHC RDW Lymphocytes % (Manual) Lymphocytes # (Manual) PT 16.5 H INR 1.25 H APTT 37.3 H POC ABG pH POC ABG pCO2 POC ABG pO2 Sodium Chloride BUN Creatinine Glucose Lactic Acid Calcium Magnesium Total Creatine Kinase 211 H CK-MB (CK-2) 7.7 H Troponin T 0.169 H* D C-Reactive Protein Cholesterol 46 L LDL Cholesterol Direct 17 L HDL Cholesterol 6 L Urine WBC (Auto) 08/13/18 08/13/18 08/13/18 00:50 02:25 05:34 WBC RBC Hgb Hct MCHC RDW Lymphocytes % (Manual) Lymphocytes # (Manual) PT INR APTT POC ABG pH 7.503 H POC ABG pCO2 POC ABG pO2 253 H Sodium Chloride BUN Creatinine Glucose Lactic Acid Calcium Magnesium Total Creatine Kinase 311 H CK-MB (CK-2) 10.4 H Troponin T 0.283 H* D C-Reactive Protein Cholesterol LDL Cholesterol Direct HDL Cholesterol Urine WBC (Auto) > 182.0 H 08/13/18 08/13/18 08/13/18 06:35 10:10 10:10 WBC RBC Hgb Hct MCHC RDW Lymphocytes % (Manual) Lymphocytes # (Manual) PT INR APTT POC ABG pH 7.554 H POC ABG pCO2 33.5 L POC ABG pO2 220 H Sodium 158 H Chloride 117.1 H BUN 53 H Creatinine 2.0 H Glucose 247 H Lactic Acid Calcium 8.2 L Magnesium Total Creatine Kinase 309 H CK-MB (CK-2) 4.1 H Troponin T 0.470 H* D C-Reactive Protein Cholesterol LDL Cholesterol Direct HDL Cholesterol Urine WBC (Auto) 08/13/18 08/13/18 12:53 12:53 WBC RBC Hgb Hct MCHC RDW Lymphocytes % (Manual) Lymphocytes # (Manual) PT INR APTT POC ABG pH POC ABG pCO2 POC ABG pO2 Sodium Chloride BUN Creatinine Glucose Lactic Acid 2.80 H* Calcium Magnesium 2.50 H Total Creatine Kinase CK-MB (CK-2) Troponin T C-Reactive Protein 16.90 H Cholesterol LDL Cholesterol Direct HDL Cholesterol Urine WBC (Auto) - Diagnostic Findings Additional findings: CT head nothing acute Assessment and Plan This is a 77 YO M with likely anoxic encephalopathy. Has brain stem reflexes- pupils react, eomi with Doll's Recommend: AGree with EEG REpeat CT head in 24-48 hrs to look for generalized edema. Spoke to family at bedside and laid the groundwork that pt will likely NOT recover. They seemed to hear and understand. Continue care for all medical issues as you are doing Prognosis poor.
[2018-08-13] MEDS: ASPIRIN PR SCH (18:08)
[2018-08-13] MEDS: KEPPRA PO SCH (22:32)
[2018-08-13] MEDS: SODIUM CHLORIDE FLUSH SYRINGE 10 ML IV SCH (22:34)
--- NOTE | 2018-08-14 00:10 | Consultation ---
PULMONARY CRITICAL CARE CONSULTATION CONSULTING PHYSICIAN: Wilma Ibrahim MD REASON FOR CONSULTATION: Acute respiratory failure, on mechanical ventilatory support. He was hypoxemic and status post cardiac arrest. CHIEF COMPLAINT AND HISTORY OF PRESENT ILLNESS: The patient is a 77-year-old -Faroese male with past medical history significant for a diagnosis of cerebrovascular accident and seizure disorders, halfway resident, was brought in from the halfway secondary to cardiac arrest episode. It seems like CPR was started by [facility] in the field and continued in the Emergency Room. He was hypotensive. He has chronic trach and PEG. In the ER, they found a trach leak. He was leak. He was intubated and he developed subcutaneous emphysema of the face. He was found to have pneumothorax. The right chest tube was placed and he was admitted to the hospital for further management. When I stopped by to see him, he was on the mechanical ventilator. He had continuous twitches/myoclonic type jerks to his to his face in particular. I do not have any history of vomiting or overt aspiration, although I cannot rule that out. Family denies any prior suggestion of brewing illness at the halfway. He is not a current tobacco abuser. Remote history is unknown. This really is as much of the history of presentation as I have. PAST MEDICAL HISTORY: Cerebrovascular accident, diabetes, seizure disorder, chronic respiratory failure with a tracheostomy in place. I believe chronic hypoxemic respiratory failure. Oropharyngeal dysphagia. PAST SURGICAL HISTORY: He has had a trach placed and has had a percutaneous endoscopic gastrostomy tube placed in the past. MEDICATIONS: Medications she was on at the time I stopped by to see him were reviewed. Pertinent medications included the following: Tylenol 650 mg p.o. q.6 hours p.r.n. fevers greater than 101 had just been started, aspirin 300 mg per rectum daily, Levophed drip had been going at 4 mcg per minute. He has just been started on Pepcid 20 mg IV b.i.d., IV heparin was going at 1000 units per hour starting rate and readjusted, insulin via sliding scale, Zofran 4 mg IV q. 8 hours p.r.n. nausea and vomiting, Zosyn 3.375 grams IV q.8 hours. ALLERGIES: No known drug allergies. DIET: Thin gentleman. Acute weight loss or gain history is unknown. FAMILY AND SOCIAL HISTORY: longterm resident. No current alcohol, tobacco, or illicit drug use or abuse. Remote history is unknown. There is a family history of hypertension. REVIEW OF SYSTEMS: Unobtainable secondary to patient's medical and mental condition. Since he has been here, he has had this myoclonic/seizure type activity. No gross hematochezia or melena. No gross hematuria, no hematemesis, no bloody tracheal secretions. I should mention he has had an episode of hematuria that necessitated stopping the heparin drip. Complete review of systems is obtained as best as I could. Pertinent positives and/or negatives are as in body of the history above, otherwise they are noncontributory. PHYSICAL EXAMINATION: VITAL SIGNS: At presentation, he had a low-grade fever of 99.2 with the pulse of 111, respiratory rate of 11 and blood pressure 149/63, O2 sats 100% at presentation. Inspired oxygen concentration was not recorded. T-max has been 102.4. Current O2 sats are 98% and that is on assist control mode of respiration rate of 16, tidal volume 400 and PEEP of 6. GENERAL: He is an elderly, chronically ill-looking -Faroese male, normocephalic with myoclonic type twitching to the face and mouth, on the mechanical ventilator with mildly increased respiratory effort. HEAD, EYES, EARS, NOSE AND THROAT: He is anicteric. No conjunctival erythema. Oropharynx is moist. Endotracheal tube is taped in place around 23-24 cm at the lips. No thyromegaly, no gross jugular venous distention. Grossly, no palpable lymph nodes in the supraclavicular or submandibular lymph node chains. LUNGS: Auscultation of both lung le, with diminished bilateral breath sounds, occasional rales. No wheezing. Plus subacute emphysema. He has a right chest tube, it is actually Heimlich valve. No significant bleeding around the insertion site. CARDIOVASCULAR: Heart sounds 1 and 2 are heard at the time of my evaluation, regular in rate and rhythm without overt rubs or murmurs. ABDOMEN: Soft, full, bowel sounds are positive, nontender. No palpable hepatosplenomegaly. EXTREMITIES: Without overt digital clubbing, cyanosis, no pedal edema. Pedal pulses are palpable bilaterally and strong. NEUROLOGIC: He is nonresponsive. He is not on any sedation. He has the myoclonic type twitches to the face and mouth. Pupils equal, round, about 4 mm, reactive to light. Extraocular muscle movements could not be assessed. The skin is of poor turgor without overt cellulitis. I believe he has end-stage 2 sacral decubitus. LABORATORY DATA: From my review, admission white cell count 15.5, hemoglobin 8.8, hematocrit 28.9, platelet count 180. No band neutrophils reported. INR was 1.37. Serum sodium was 159, potassium 3.7, chloride 119, bicarbonate 23, BUN 34, creatinine 1.4, and a glucose of 161. Troponin was up at 0.105, it is up to 0.47. LDL cholesterol 17. Urinalysis shows moderate leukocyte esterase, greater than 182 white cells per high power field. I believe he has a chronic indwelling catheter. Urine drug screen was negative. No cultures for my review. A CT scan was done of the head. I have reviewed the radiologist's interpretation. No acute intracranial hemorrhage. The most recent chest x-rays from last night, endotracheal tube tip is at the level of the aortic knob significant subcutaneous emphysema, small bore chest tube is in the pleural space. No gross bony fractures. The edge of pneumothorax is visible. It looks like about a 20-30% pneumothorax is as that time. No real focal infiltrate. ASSESSMENT: 1. Acute hypoxemic respiratory failure on chronic. 2. Status post cardiac arrest. 3. Seizure disorder with breakthrough seizures. 4. History of diabetes. 5. History of cerebrovascular accident. 5. Oropharyngeal dysphagia. 6. History of seizures. PLAN: We will go ahead and place a consult for a large bore chest tube. Certainly with him on the mechanical ventilator, we will need to do that, especially with his mental status remaining the way it is. I have in the meantime asked that the Heimlich valve be connected to continuous valve suction. Ventilator-associated pneumonia bundle has been addressed. Oxygen will be weaned to keep sats greater than or equal to about 90%. Aspiration precautions included. We will continue current broad spectrum antibiotic therapy. We will get a CRP level and repeat the lactic acid level to help in clinical decision making. He is weaning off the vasopressors. Volume resuscitation will be initially with crystalloid and isotonic until we can get his blood pressure better. At that point, we will focus more on hypotonic solutions for the hypernatremia. Free water will be started in the meantime. I will go ahead and reduce the set rate on the mechanical ventilator to 12 per minute with regards to his alkalosis with a respiratory component at this time. Bronchodilator treatments will be scheduled in the short time period and then we will continue per protocol. He has been started appropriately on GI prophylaxis. The heparin drip is about to be resumed. He is no longer having any hematuria. I will be sending 2 sets of blood cultures as well as of urine cultures and tracheal aspirate. Flu and pneumonia vaccination will be addressed per protocol. Thank you very much for the consult, Dr. Ibrahim. We will follow along. I should mention he has received 1 dose of Ativan with good response. Neurology consultation will be placed. Keppra will be started empirically. I would also put him on a propofol drip in the short term to control the seizures. At this point, we spent about 35-40 minutes of critical care time without overlap and excluding any procedural time that may be necessary. JOB# [id number] RENEE/NELSON BROOKS
[2018-08-14] MEDS: HumaLOG SUB-Q SCH ×3 (00:57→18:35)
--- NOTE | 2018-08-14 03:00 | XRay Report ---
PROCEDURE: XR CHEST 1V AP TECHNIQUE: Chest radiograph single view. HISTORY: Follow up respiratory failure. COMPARISONS: None . FINDINGS: Heart: Normal. Mediastinum/Vessels: Tortuosity and atherosclerotic vascular calcifications of the thoracic aorta. Lungs/Pleural space: Normal no lobar consolidation. Mild left perihilar opacities.. Bony thorax: No acute osseous abnormality. Life support devices: ET tube appears appropriately positioned. Right subclavian line terminates in t he distal superior vena cava. Miscellaneous: Right thorax subcutaneous emphysema. IMPRESSION: 1. Life support devices appear. 2. Mild left perihilar opacities, otherwise lungs without focal consolidation, large effusion or sign ificant pneumothorax. This document is electronically signed by Raheel Kilpatrick DO., Aug 14 2018 02:58:45 AM ET
[2018-08-14] MEDS: NACL 0.9% 1000 ML 1,000 ML IV SCH (03:35)
[2018-08-14 04:59] LABS: Basophils # (Auto) 0.1 K/mm3 (0.0-0.1); Basophils % (Auto) 0.5 % (0.0-1.8); Eosinophils % (Auto) 0.1 % (0.0-4.3); Hemoglobin 7.3 gm/dl (11.8-15.2); Lymphocytes # (Auto) 2.5 K/mm3 (1.2-5.4); Lymphocytes % (Auto) 13.6 % (13.4-35.0); Mean Corpuscular HGB Conc 32 % (32-34); Mean Corpuscular Volume 88 fl (84-94); Monocytes # (Auto) 1.2 K/mm3 (0.0-0.8); Monocytes % (Auto) 6.4 % (0.0-7.3); Platelet Count 267 K/mm3 (140-440); Red Blood Count 2.62 M/mm3 (3.65-5.03); Red Cell Distribution Width 18.9 % (13.2-15.2)
[2018-08-14 05:05] LABS: Hematocrit 24.5 % (35.5-45.6)
[2018-08-14 05:21] LABS: Albumin 1.9 g/dL (3.9-5); Calcium 7.6 mg/dL (8.4-10.2)
--- NOTE | 2018-08-14 09:41 | Consultation ---
History of Present Illness - Reason for Consult Consult date: 08/14/18 acute renal failure Requesting physician: NICANOR LEONE - History of Present Illness 77-year-old male [facility]. A tracheostomy and hemiplegia status post cerebrovascular accident. Patient was bagged via trach and had spontaneous return of spontaneous circulation were taken of the pulse and was resuscitated again. On arrival in the emergency room, patient was hypotensive on vasopressors. At this point was recognized that there was a trach leak from the tracheostomy and so the patient was intubated. He had evidence of subcutaneous emphysema and pneumothorax on CT. BUN/creatinine and reviewed at 72/2.7 mg/dL. I'm consulted to assist in managing renal failure and fluid and electrolyte abnormalities. Patient is intubated on ventilator and is not able to give a history. History is obtained from a review of records and discussion with the nurse at the bedside. Patient has been febrile with temperature as high as 102.5 yesterday and also hypotensive with blood pressures of 82/48 mmHg. Past History Past Medical History: diabetes, hypertension, hyperlipidemia, seizures, stroke Past Surgical History: Other (trach and PEG) [facility] history: [facility] (at [facility] denies: smoking, alcohol abuse, prescription drug abuse, IV drug use Family history: hypertension Medications and Allergies Allergies Allergy/AdvReac Type Severity Reaction Status Date / Time No Known Allergies Allergy Verified 08/12/18 21:47 Active Meds: Active Medications Acetaminophen (Tylenol) 650 mg PO Q6H PRN PRN Reason: Fever >101 Last Admin: 08/13/18 16:09 Dose: 650 mg Documented by: Lipase/Protease/Amylase (Pancreaze Dr 10,500 Unit) 1 each FEEDTUBE PRN PRN PRN Reason: For Clogged Feeding Tube Aspirin (Aspirin) 300 mg ME QDAY LENCHO Last Admin: 08/13/18 18:08 Dose: 300 mg Documented by: Dextrose (D50w (25gm) Syringe) 50 ml IV PRN PRN PRN Reason: Hypoglycemia Famotidine (Pepcid) 20 mg IV DAILY LENCHO Hydrophilic Ointment (Vaseline Lip Therapy) 1 applic TP Q2HR PRN PRN Reason: Dry Lips Heparin Sodium/Sodium Chloride (Heparin/ 0.45% Nacl-25,000 Unit/500 Ml) 25,000 unit in 500 mls @ 20 mls/hr IV TITRATE LENCHO; Protocol Last Titration: 08/14/18 02:17 Dose: 1,000 units/hr, 20 mls/hr Documented by: Norepinephrine (Levophed Drip 4 Mg/Ns 250 Ml) 4 mg in 250 mls @ 7.5 mls/hr IV TITR LENCHO; Protocol Last Titration: 08/14/18 06:00 Dose: 4 mcg/min, 15 mls/hr Documented by: Dextrose (D5w) 1,000 mls @ 100 mls/hr IV DIRECT LENCHO Last Admin: 08/13/18 23:02 Dose: 75 mls/hr Documented by: Sodium Chloride (Nacl 0.9% 1000 Ml) 1,000 mls @ 100 mls/hr IV DIRECT LENCHO Stop: 08/14/18 21:59 Last Admin: 08/14/18 03:35 Dose: 100 mls/hr Documented by: Propofol (Diprivan 10 Mg/Ml) 1,000 mg in 100 mls @ 2.177 mls/hr IV TITR LENCHO; Protocol Last Admin: 08/13/18 16:02 Dose: 5 mcg/kg/min, 2.177 mls/hr Documented by: Piperacillin Sod/Tazobactam Sod (Zosyn/Ns 2.25 Gm/50ml) 2.25 gm in 50 mls @ 100 mls/hr IV Q6HR LENCHO Insulin Human Lispro (Humalog) 0 unit SUB-Q Q6HR LENCHO; Protocol Last Admin: 08/14/18 00:57 Dose: 3 unit Documented by: Levetiracetam (Keppra) 1,000 mg PO BID LENCHO Last Admin: 08/13/18 22:32 Dose: 1,000 mg Documented by: Lorazepam (Ativan) 2 mg IV Q1H PRN PRN Reason: Seizures Stop: 08/14/18 13:42 Last Admin: 08/13/18 12:10 Dose: 2 mg Documented by: Multi-Ingred Cream/Lotion/Oil/Oint (Artificial Tears Ophth Oint) 1 applic OU Q4HR PRN PRN Reason: Dry Eye(s) Ondansetron HCl (Zofran) 4 mg IV Q8H PRN PRN Reason: Nausea And Vomiting Simple Syrup (Simple Syrup) 15 ml FEEDTUBE PRN PRN PRN Reason: Hypoglycemia Simple Syrup (Simple Syrup) 30 ml FEEDTUBE PRN PRN PRN Reason: Hypoglycemia Sodium Bicarbonate (Sodium Bicarbonate) 325 mg FEEDTUBE PRN PRN PRN Reason: For Clogged Feeding Tube Sodium Chloride (Sodium Chloride Flush Syringe 10 Ml) 10 ml IV BID LENCHO Last Admin: 08/13/18 22:34 Dose: 10 ml Documented by: Sodium Chloride (Sodium Chloride Flush Syringe 10 Ml) 10 ml IV PRN PRN PRN Reason: LINE FLUSH Review of Systems ROS unobtainable: due to mental status Exam - Vital Signs Vital signs: Vital Signs Pulse Ox 100 08/12/18 21:02 - Physical Exam Narrative exam: Frail elderly -[place] Islander male lying in bed is not sure distress at rest. In no acute distress HEENT: NCAT, pink oral mucous membrane Neck: Supple, no venous distention CVS: S1S2 RRR with no murmur, rub or gallop Chest: Low pitched rhonchi with diminished breath sounds Abdomen: Protuberant, soft, nontender, no organomegaly, bowel sounds are present Extremities: Mild edema, muscle wasting Skin warm and dry Genitourinary deferred Neuro: Unresponsive Results - Lab Results 08/14/18 04:03 08/14/18 04:03 Most recent lab results Calcium 7.6 mg/dL (8.4-10.2) L 08/14/18 04:03 Phosphorus 3.50 mg/dL (2.5-4.5) 08/13/18 12:53 Magnesium 2.50 mg/dL (1.7-2.3) H 08/13/18 12:53 Assessment and Plan - Patient Problems (1) MAYLIN (acute kidney injury) Current Visit: Yes Status: Acute Plan to address problem: Get urine studies. Follow-up in ultrasound. Continue volume repletion Follow- up electrolytes are not functioning (2) Hypernatremia Current Visit: Yes Status: Acute Plan to address problem: Continue free water replacement with IV by feeding tube (3) Sepsis associated hypotension Current Visit: Yes Status: Acute Plan to address problem: Urinalysis is noted. Possible urinary tract infection. Continue antibiotics. Follow cultures. (4) Type 2 diabetes mellitus without complications Current Visit: Yes Status: Acute Plan to address problem: Blood sugar management by primary attending. (5) Essential (primary) hypertension Current Visit: Yes Status: Acute Plan to address problem: The Blood pressure was low but is now improving. Follow-up blood pressure (6) Hypotension Current Visit: Yes Status: Acute Plan to address problem: Patient responding to volume resuscitation. Vasopressor is being weaned now
--- NOTE | 2018-08-14 10:31 | Progress Note ---
Assessment and Plan Pt presented s/p multiple cardiac arrests with prologned down time - per neurology, pt will likely not recover. Pt's initial ECG was suggestive of ischemia/infarction, repeat ECG shows resolution of ST changes, Ian elevated. Will continue with conservative cardiac management at this time given overall poor prognosis. Cont heparin gtt and monitor H/H. Cont ASA and statin, consider addition of BB if BPs permit. Await echo. The patient has been seen in conjunction with Dr. Monsivais who agrees with the assessment and plan of care. - Patient Problems (1) Cardiac arrest Current Visit: Yes Status: Acute (2) ACS (acute coronary syndrome) Current Visit: Yes Status: Acute (3) Seizure disorder Current Visit: Yes Status: Acute (4) Altered mental state Current Visit: Yes Status: Acute (5) Acute and chronic respiratory failure Current Visit: Yes Status: Acute (6) Hypotension Current Visit: Yes Status: Acute (7) Pneumothorax Current Visit: Yes Status: Acute (8) History of CVA (cerebrovascular accident) Current Visit: Yes Status: Chronic (9) Sinus tachycardia Current Visit: Yes Status: Acute (10) Leukocytosis Current Visit: Yes Status: Acute (11) Fever Current Visit: Yes Status: Acute (12) Anemia Current Visit: Yes Status: Acute (13) MAYLIN (acute kidney injury) Current Visit: Yes Status: Acute (14) Hypernatremia Current Visit: Yes Status: Acute (15) History of tracheostomy Current Visit: Yes Status: Chronic Subjective Date of service: 08/14/18 Principal diagnosis: cardiac arrest Interval history: pt remains intubated, sedated, nonresponsive, no family at bedside. heparin gtt infusing. Objective Last Vital Signs Temp 97.3 F L 08/14/18 08:00 Pulse 70 08/14/18 10:00 Resp 24 08/14/18 10:00 BP 104/52 08/14/18 10:00 Pulse Ox 100 08/14/18 10:00 - Physical Examination General: Other (intubated, sedated, nonresponsive) Cardiac: Positive: Reg Rate and Rhythm, S1/S2 Lungs: Positive: Decreased Breath Sounds Neuro: Positive: Other (intubated, sedated, nonresponsive) Extremities: Absent: edema - Labs and Meds Cardiac Enzymes 08/13/18 08/14/18 Range/Units 10:10 04:03 AST 50 H (5-40) units/L CK-MB (CK-2) 4.1 H (0.0-4.0) ng/mL CBC 08/14/18 Range/Units 04:03 WBC 18.2 H (4.5-11.0) K/mm3 RBC 2.62 L (3.65-5.03) M/mm3 Hgb 7.3 L (11.8-15.2) gm/dl Hct 24.5 L (35.5-45.6) % Plt Count 267 (140-440) K/mm3 Lymph # 2.5 (1.2-5.4) K/mm3 [place] # 1.2 H (0.0-0.8) K/mm3 Eos # 0.0 (0.0-0.4) K/mm3 Baso # 0.1 (0.0-0.1) K/mm3 Comprehensive Metabolic Panel 08/13/18 08/14/18 Range/Units 10:10 04:03 Sodium 158 H 152 H (137-145) mmol/L Potassium 4.0 3.4 L (3.6-5.0) mmol/L Chloride 117.1 H 113.8 H (98-107) mmol/L Carbon Dioxide 29 22 D (22-30) mmol/L BUN 53 H 72 H (9-20) mg/dL Creatinine 2.0 H 2.7 H (0.8-1.5) mg/dL Glucose 247 H 239 H (75-100) mg/dL Calcium 8.2 L 7.6 L (8.4-10.2) mg/dL AST 50 H (5-40) units/L ALT 55 (7-56) units/L Alkaline Phosphatase 219 H (35-129) units/L Total Protein 6.2 L (6.3-8.2) g/dL Albumin 1.9 L (3.9-5) g/dL - Imaging and Cardiology EKG: report reviewed, image reviewed Echo: report reviewed (GLORIA done 05/12/2018 showed EF 60-65%, no thromcus, negative bubble study, mild TR, mild MR. TTE done 05/08/2018 showed EF 60%, mild LVH, grade 1 diastolic dysfunction, negative bubble study. ) - Telemetry EKG Rhythm: Sinus Rhythm - EKG Sinus rhythms and dysrhythmias: sinus tachycardia Repolarization changes or abnormalities: ST or T wave suggestive of ischemia
[2018-08-14] MEDS: PEPCID IV SCH (10:44)
[2018-08-14] MEDS: KCL 10MEQ/100ML 10 MEQ/100 ML BAG IV SCH ×2 (10:44→12:30)
[2018-08-14] MEDS: KEPPRA PO SCH ×2 (10:44→21:35)
[2018-08-14] MEDS: ASPIRIN PR SCH (10:44)
[2018-08-14] MEDS: SODIUM CHLORIDE FLUSH SYRINGE 10 ML IV SCH ×2 (10:45→21:36)
--- NOTE | 2018-08-14 10:48 | Progress Note ---
Assessment and Plan Assessment and plan: 69-year-old man with a history of chronic respiratory failure who is status post trach, per his family the trach was being downsized -The patient developed respiratory distress at home, EMS was called, EMS was trying to back 3 and refusing some obstruction. He was pulseless 2. Received CPR and had return of spontaneous circulation 2. Upon arrival in the ER the patient was again noted to not have a pulse he received CPR, kilocalorie volumes on the tracheostomy which is suspicious for a week as he had a continuous emphysema. Therefore the patient was orally intubated. He was found to have a right pneumothorax and received percutaneous chest using the easy Acute on chronic respiratory failure on mechanical ventilation less than 96 hours Trach has been removed patient is orally intubated, continue ventilator management per pulmonology Right pneumothorax Status post chest tube, mgt per pulmonology Anoxic brain injury and status epilepticus Patient was noted to be having seizures, he received Ativan and Keppra, neurology consult appreciated, poor prognosis, poor likelihood of recovery . Hypernatremia/free water deficits Continue free water via G-tube, continue hypotonic IV solutio acute kidney injury likely due to ATN Nephrology consult, continue IV fluid, avoid renal toxic agents Acute MA -Likely a type II MA Elevated troponin unit after patient has had cardiac arrest 3, expected outcome, cardiology consult appreciated, continue heparin drip, aspirin and statin -Patient would have to clinically improved undergo any coronary risk stratification Severe malnutrition Dietitian consult, continue tube feedings UTI/sepsis Continue antibiotics, follow-up urine cultures Urinary retention continue douglass, do not remove DVT prophylaxis; patient is fully anticoagulated on heparin drip Discussed with family, poor prognosis, they are still hopeful, will plan for NM brain flow scan from tomorrow History Interval history: Patient remains intubated no shaking, no seizures He remains nonresponsive No fevers No vomiting Hospitalist Physical - Physical exam Narrative exam: General.: Obtunded HEENT: Moist mucous membranes, no lymphadenopathy Neck: supple, dressing noted over his neck, trach has been removed Cardiac: S1-S2 heard Lungs: clear to auscultation bilaterally Abdomen: soft , nondistended, bowel sounds positive Extremities: no edema clubbing or cyanosis Skin: Dressing noted on lower extremities Neurologic: upward gaze, pupils are sluggish, patient is lacking most reflexes, he is nonresponsive to painful stimuli, extremities are flaccid Psych: Obtunded - Constitutional Vitals: Temp Pulse Resp BP Pulse Ox 97.3 F L 70 24 104/52 100 08/14/18 08:00 08/14/18 10:00 08/14/18 10:00 08/14/18 10:00 08/14/18 10:00 General appearance: Present: other (twitching, nonresponsive, intubated) Results - Labs CBC & Chem 7: 08/15/18 04:05 08/15/18 04:05 Labs: Laboratory Last Values WBC 18.2 K/mm3 (4.5-11.0) H 08/14/18 04:03 RBC 2.62 M/mm3 (3.65-5.03) L 08/14/18 04:03 Hgb 7.3 gm/dl (11.8-15.2) L 08/14/18 04:03 Hct 24.5 % (35.5-45.6) L 08/14/18 04:03 MCV 88 fl (84-94) 08/14/18 04:03 MCH 28 pg (28-32) 08/14/18 04:03 MCHC 32 % (32-34) 08/14/18 04:03 RDW 18.9 % (13.2-15.2) H 08/14/18 04:03 Plt Count 267 K/mm3 (140-440) 08/14/18 04:03 Lymph % (Auto) 13.6 % (13.4-35.0) 08/14/18 04:03 [place] % (Auto) 6.4 % (0.0-7.3) 08/14/18 04:03 Eos % (Auto) 0.1 % (0.0-4.3) 08/14/18 04:03 Baso % (Auto) 0.5 % (0.0-1.8) 08/14/18 04:03 Lymph # 2.5 K/mm3 (1.2-5.4) 08/14/18 04:03 [place] # 1.2 K/mm3 (0.0-0.8) H 08/14/18 04:03 Eos # 0.0 K/mm3 (0.0-0.4) 08/14/18 04:03 Baso # 0.1 K/mm3 (0.0-0.1) 08/14/18 04:03 Add Manual Diff Complete 08/12/18 21:44 Total Counted 100 08/12/18 21:44 Seg Neutrophils % 79.4 % (40.0-70.0) H 08/14/18 04:03 Seg Neuts % (Manual) 44.0 % (40.0-70.0) 08/12/18 21:44 0 % 08/12/18 21:44 48.0 % (13.4-35.0) H 08/12/18 21:44 Reactive Lymphs % (Man) 0 % 08/12/18 21:44 2.0 % (0.0-7.3) 08/12/18 21:44 1.0 % (0.0-4.3) 08/12/18 21:44 0 % (0.0-1.8) 08/12/18 21:44 1.0 % 08/12/18 21:44 4.0 % 08/12/18 21:44 0 % 08/12/18 21:44 0 % 08/12/18 21:44 Nucleated RBC % Not Reportable 08/12/18 21:44 Seg Neutrophils # 14.5 K/mm3 (1.8-7.7) H 08/14/18 04:03 Seg Neutrophils # Man 6.8 K/mm3 (1.8-7.7) 08/12/18 21:44 Band Neutrophils # 0.0 K/mm3 08/12/18 21:44 7.4 K/mm3 (1.2-5.4) H 08/12/18 21:44 Abs React Lymphs (Man) 0.0 K/mm3 08/12/18 21:44 0.3 K/mm3 (0.0-0.8) 08/12/18 21:44 0.2 K/mm3 (0.0-0.4) 08/12/18 21:44 0.0 K/mm3 (0.0-0.1) 08/12/18 21:44 0.2 K/mm3 08/12/18 21:44 0.6 K/mm3 08/12/18 21:44 0.0 K/mm3 08/12/18 21:44 Blast Cells # 0.0 K/mm3 05/15/19 21:44 WBC Morphology Not Reportable 08/12/18 21:44 Hypersegmented Neuts Not Reportable 08/12/18 21:44 Hyposegmented Neuts Not Reportable 08/12/18 21:44 Hypogranular Neuts Not Reportable 08/12/18 21:44 Not Reportable 08/12/18 21:44 Not Reportable 08/12/18 21:44 Not Reportable 08/12/18 21:44 Not Reportable 08/12/18 21:44 Not Reportable 08/12/18 21:44 Not Reportable 08/12/18 21:44 Consistent w auto 08/12/18 21:44 Not Reportable 08/12/18 21:44 Plt Clumps, EDTA Not Reportable 08/12/18 21:44 Not Reportable 08/12/18 21:44 Not Reportable 08/12/18 21:44 Not Reportable 08/12/18 21:44 Plt Morphology Comment Not Reportable 08/12/18 21:44 RBC Morphology Not Reportable 08/12/18 21:44 Dimorphic RBCs Not Reportable 08/12/18 21:44 Not Reportable 08/12/18 21:44 Not Reportable 08/12/18 21:44 Not Reportable 08/12/18 21:44 Few 08/12/18 21:44 Not Reportable 08/12/18 21:44 Not Reportable 08/12/18 21:44 Not Reportable 08/12/18 21:44 Not Reportable 08/12/18 21:44 Not Reportable 08/12/18 21:44 Not Reportable 08/12/18 21:44 Not Reportable 08/12/18 21:44 Few 08/12/18 21:44 Not Reportable 08/12/18 21:44 Not Reportable 08/12/18 21:44 Not Reportable 08/12/18 21:44 Not Reportable 08/12/18 21:44 Not Reportable 08/12/18 21:44 Not Reportable 08/12/18 21:44 Few 08/12/18 21:44 Acanthocytes (Spur) Not Reportable 08/12/18 21:44 Rouleaux Not Reportable 08/12/18 21:44 Not Reportable 08/12/18 21:44 Not Reportable 08/12/18 21:44 Not Reportable 08/12/18 21:44 Not Reportable 08/12/18 21:44 Hem Pathologist Commnt No 08/12/18 21:44 PT 16.5 Sec. (12.2-14.9) H 08/13/18 00:47 INR 1.25 (0.87-1.13) H 08/13/18 00:47 APTT 37.3 Sec. (24.2-36.6) H 08/13/18 00:47 2742.50 ng/mlDDU (0-234) H 08/13/18 20:07 Heparin Anti-Xa Level 0.43 U.I./ml (0.3-0.7) 08/14/18 04:03 POC ABG pH 7.432 (7.35-7.45) 08/14/18 04:56 POC ABG pCO2 33.5 (35-45) L 08/14/18 04:56 POC ABG pO2 153 (80-105) H 08/14/18 04:56 POC ABG HCO3 22.3 (22-26 mml/L) 08/14/18 04:56 POC ABG Total CO2 23 (23-27mmol/L) 08/14/18 04:56 POC ABG O2 Sat 99 08/14/18 04:56 POC ABG Base Excess -2 ((-2) - (+3)mmol/L) 08/14/18 04:56 30 % 08/14/18 04:56 Sodium 152 mmol/L (137-145) H 08/14/18 04:03 Potassium 3.4 mmol/L (3.6-5.0) L 08/14/18 04:03 Chloride 113.8 mmol/L (98-107) H 08/14/18 04:03 Carbon Dioxide 22 mmol/L (22-30) D 08/14/18 04:03 20 mmol/L 08/14/18 04:03 BUN 72 mg/dL (9-20) H 08/14/18 04:03 2.7 mg/dL (0.8-1.5) H 08/14/18 04:03 Estimated GFR 28 ml/min 08/14/18 04:03 27 % 08/14/18 04:03 Glucose 239 mg/dL (75-100) H 08/14/18 04:03 POC Glucose 242 (70-105) H 08/14/18 05:18 Lactic Acid 2.80 mmol/L (0.7-2.0) H* 08/13/18 12:53 Calcium 7.6 mg/dL (8.4-10.2) L 08/14/18 04:03 Phosphorus 3.50 mg/dL (2.5-4.5) 08/13/18 12:53 Magnesium 2.50 mg/dL (1.7-2.3) H 08/13/18 12:53 0.30 mg/dL (0.1-1.2) 08/14/18 04:03 AST 50 units/L (5-40) H 08/14/18 04:03 ALT 55 units/L (7-56) 08/14/18 04:03 219 units/L (35-129) H 08/14/18 04:03 309 units/L (55-170) H 08/13/18 10:10 CK-MB (CK-2) 4.1 ng/mL (0.0-4.0) H 08/13/18 10:10 CK-MB (CK-2) Rel Index 1.3 (0-4) 08/13/18 10:10 0.409 ng/mL (0.00-0.029) H* 08/14/18 04:03 16.90 mg/dL (0.00-1.30) H 08/13/18 12:53 6.2 g/dL (6.3-8.2) L 08/14/18 04:03 1.9 g/dL (3.9-5) L 08/14/18 04:03 0.4 % 08/14/18 04:03 Triglycerides 62 mg/dL (2-149) 08/13/18 00:32 Cholesterol 46 mg/dL (50-199) L 08/13/18 00:32 17 mg/dL (50-130) L 08/13/18 00:32 6 mg/dL (40-59) L 08/13/18 00:32 7.66 % 08/13/18 00:32 Yellow (Yellow) 08/13/18 00:50 Cloudy (Clear) 08/13/18 00:50 7.0 (5.0-7.0) 08/13/18 00:50 Ur Specific [place] 1.025 (1.003-1.030) 08/13/18 00:50 100 mg/dl mg/dL (Negative) 08/13/18 00:50 50 mg/dL (Negative) 08/13/18 00:50 Tr mg/dL (Negative) 08/13/18 00:50 Mod (Negative) 08/13/18 00:50 Neg (Negative) 08/13/18 00:50 Neg (Negative) 08/13/18 00:50 < 2.0 mg/dL (<2.0) 08/13/18 00:50 Ur Leukocyte Esterase Mod (Negative) 08/13/18 00:50 > 182.0 /HPF (0.0-6.0) H 08/13/18 00:50 > 182.0 /HPF (0.0-6.0) 08/13/18 00:50 2+ /HPF (Negative) 08/13/18 00:50 3+ /HPF 08/13/18 00:50 Presumptive negative 08/12/18 21:30 Presumptive negative 08/12/18 21:30 Ur Barbiturates Screen Presumptive negative 08/12/18 21:30 Ur Phencyclidine Scrn Presumptive negative 08/12/18 21:30 Ur Amphetamines Screen Presumptive negative 08/12/18 21:30 U Benzodiazepines Scrn Presumptive negative 08/12/18 21:30 Presumptive negative 08/12/18 21:30 U Marijuana (THC) Screen Presumptive negative 08/12/18 21:30 Disclamer 08/12/18 21:30 Blood Type O POSITIVE 08/12/18 21:44 Antibody Screen Negative 08/12/18 21:44 Active Medications - Current Medications Current Medications: Generic Name Dose Route Start Last Admin Trade Name Freq PRN Reason Stop Dose Admin Acetaminophen 650 mg 08/13/18 11:40 08/13/18 16:09 Tylenol PO 650 mg Q6H PRN Administration Fever >101 Lipase/Protease/Amylase 1 each 08/13/18 15:[address] 10,500 Unit FEEDTUBE PRN PRN For Clogged Feeding Tube Aspirin 300 mg 08/13/18 12:00 08/14/18 10:44 Aspirin PA 300 mg QDAY LENCHO Administration Atorvastatin Calcium 40 mg 08/14/18 22:00 Lipitor PO QHS LENCHO Dextrose 50 ml 08/13/18 01:34 D50w (25gm) Syringe IV PRN PRN Hypoglycemia Famotidine 20 mg 08/14/18 10:00 08/14/18 10:44 Pepcid IV 20 mg DAILY LENCHO Administration Hydrophilic Ointment 1 applic 08/13/18 12:21 Vaseline Lip Therapy TP Q2HR PRN Dry Lips Heparin Sodium/Sodium Chloride 25,000 unit in 500 mls @ 20 mls/hr 08/13/18 01:00 08/14/18 02:17 Heparin/ 0.45% Nacl-25,000 Unit/500 Ml IV 1,000 units/hr TITRATE LENCHO 20 mls/hr Titration Protocol 1,000 UNITS/HR Norepinephrine 4 mg in 250 mls @ 7.5 mls/hr 08/12/18 21:00 08/14/18 06:00 Levophed Drip 4 Mg/Ns 250 Ml IV 4 mcg/min TITR LENCHO 15 mls/hr Titration Protocol 2 MCG/MIN Dextrose 1,000 mls @ 100 mls/hr 08/13/18 03:00 08/13/18 23:02 D5w IV 75 mls/hr DIRECT LENCHO Administration Sodium Chloride 1,000 mls @ 100 mls/hr 08/13/18 12:00 08/14/18 03:35 Nacl 0.9% 1000 Ml IV 08/14/18 21:59 100 mls/hr DIRECT LENCHO Administration Propofol 1,000 mg in 100 mls @ 2.177 mls/hr 08/13/18 13:00 08/13/18 16:02 Diprivan 10 Mg/Ml IV 5 mcg/kg/min TITR LENCHO 2.177 mls/hr Administration Protocol 5 MCG/KG/MIN Piperacillin Sod/Tazobactam Sod 2.25 gm in 50 mls @ 100 mls/hr 08/14/18 12:00 Zosyn/Ns 2.25 Gm/50ml IV Q6HR LENCHO Potassium Chloride 10 meq in 100 mls @ 100 mls/hr 08/14/18 11:00 08/14/18 10:44 Kcl 10meq/100ml IV 08/14/18 12:59 100 mls/hr Q1HR LENCHO Administration Insulin Human Lispro 0 unit 08/13/18 06:00 08/14/18 00:57 Humalog SUB-Q 3 unit Q6HR LENCHO Administration Protocol Levetiracetam 1,000 mg 08/13/18 15:00 08/14/18 10:44 Keppra PO 1,000 mg BID LENCHO Administration Lorazepam 2 mg 08/13/18 13:43 08/13/18 12:10 Ativan IV 08/14/18 13:42 2 mg Q1H PRN Administration Seizures Multi-Ingred Cream/Lotion/Oil/Oint 1 applic 08/13/18 12:21 Artificial Tears Ophth Oint OU Q4HR PRN Dry Eye(s) Ondansetron HCl 4 mg 08/13/18 01:34 Zofran IV Q8H PRN Nausea And Vomiting Simple Syrup 15 ml 08/13/18 15:55 Simple Syrup FEEDTUBE PRN PRN Hypoglycemia Simple Syrup 30 ml 08/13/18 15:55 Simple Syrup FEEDTUBE PRN PRN Hypoglycemia Sodium Bicarbonate 325 mg 08/13/18 15:55 Sodium Bicarbonate FEEDTUBE PRN PRN For Clogged Feeding Tube Sodium Chloride 10 ml 08/13/18 10:00 08/14/18 10:45 Sodium Chloride Flush Syringe 10 Ml IV Not Given BID LENCHO Sodium Chloride 10 ml 08/13/18 01:34 Sodium Chloride Flush Syringe 10 Ml IV PRN PRN LINE FLUSH Nutrition/Malnutrition Assess - Dietary Evaluation Nutrition/Malnutrition Findings: Nutrition Notes Start: 08/13/18 15:41 Freq: Status: Active Protocol: Document 08/13/18 15:41 RM (Rec: 08/13/18 15:55 RM [id number]) Nutrition Notes Need for Assessment generated from: MD Order Initial or Follow up Assessment Current Diagnosis Diabetes Other Pertinent Diagnosis UTI, Hx CVA, PEG, Sacral PU, Hx hydrocephalus Current Diet NPO Labs/Tests Na 158 Pertinent Medications Reviewed Height 5 ft 8 in Weight 72.575 kg [place] Body Weight (kg) 70.00 BMI 24.3 Subjective/Other Information Consulted for TF recommendation. Screened for difficulty chewing and skin risk. Minor 12 points. Pt on vent. During rounds MD ordered water flush of 250 mls q 4 hrs to address hypernatremia. Burn Absent Trauma Absent #1 Nutrition Diagnosis Inadequate oral intake Etiology on vent As Evidenced by Signs and Symptoms NPO status Is patient on ventilator? Yes Is Patient Ambulatory and/or Out of Bed No REE-([facility]-confined to bed) [phone] Calculation Used for Recommendations [facility] Additional Notes Protein Needs: 87-145g (1.2-2g /kg) Fluid Needs: 1 ml/kcal Nutrition Intervention Nutrition Support: Vital 1.2 at 60 ml/hr. Water flush of 250 mls q 4 hrs per MD until hypernatremia resolves Water flush of 100 mls q 4 hrs once hypernatremia resolves. Kcal 1,728 Protein (gm) 108 Fiber (gm) 5 Goal #1 TF tolerance Goal #2 Meet at least 80% of calorie and protein needs via TF Anticipated Discharge Needs: TF Follow-Up By: 08/15/18 Additional Comments Follow for new TF, Na lab
[2018-08-14] MEDS: D5W 1,000 ML IV SCH (12:31)
[2018-08-14] MEDS: ZOSYN/NS 2.25 GM/50ML 2.25 GM/50 ML BAG IV SCH ×2 (12:36→18:35)
[2018-08-14] MEDS ORDERED: fentaNYL DRIP Premix 2,000 MCG/100 ML BAG IV SCH (13:00)
--- NOTE | 2018-08-14 13:19 | Progress Note ---
Assessment and Plan Acute hypoxemic respiratory failure on chronic. Status post cardiac arrest. Seizure disorder with breakthrough seizures. History of diabetes. History of cerebrovascular accident. Oropharyngeal dysphagia. History of seizures. (AMS is rate limiting step to safe extubation at this point) - VTE w/up with dopplers +/- further testing - continue MVS at set rate at 12/min - begin daily SBT's as tolerated - ABG after initial 2 hours on SBT - continue chest tube to continuous wall suction (pull after liberating from MVS) - neurology evaluation ongoing (pupils reactive sluggishly) - sedation target for RASS 0 to -1 (daily SAT's as tolerated) - continue Keppra for seizures with prn ativan IV for breakthrough - continue GI & VTE prophylaxis - continue bronchodilators with pulmonary hygiene per RT - continue to wean supplemental oxygen to keep O2 sats 88-90% - Lung protective strategies - VAP bundle addressed - Continue cardioprotective measures - Replete electrolytes as indicated - Continue to rest at night on full MVS - Monitor renal indices closely - Avoid nephrotoxic agents, adjust all medications for CrCL - Strict intake and output monitoring - continue enteral nutrition as tolerated - begin lantus 10 units SQ daily for hyperglycemia - continue accuchecks with glycemic control per SSI for target glucose of 140- 180 mg/dL - Maintenance of sleep -wake cycle - Mobility as tolerated by hemodynamics - Influenza and pneumonia vaccination per protocol ..care plan discussed at length with his at the bedside ....discussed in ICU-IDT rounds PROGNOSIS: GUARDED CONDITION: CRITICAL CODE STATUS: FULL CODE The high probability of a clinically significant, sudden or life-threatening deterioration of the [respiratory, neurology, renal] system(s) required my full and direct attention, intervention and personal management. The aggregate critical care time was [36] minutes without overlap. Time includes spent on; [x] Data Review and interpretation [x] Patient assessment and monitoring of vital signs [x] Documentation [x] Medication orders and management Subjective Date of service: 08/14/18 Principal diagnosis: Acute hypoxemic resp failure; S/P cardiac arrest; Seizures; DM II; H/O CVA Interval history: Patient is seen today for: Acute hypoxemic respiratory failure on chronic; Status post cardiac arrest; Seizure disorder with breakthrough seizures; History of diabetes; History of cerebrovascular accident; Oropharyngeal dysphagia; History of seizures. Seen and examined at bedside; 24hour events reviewed; nursing and respiratory care staff consulted; no adverse overnight events reported to me; now off levophed drip; remains on MVS; AMS is persistent; no emesis or overt aspiration; no breakthrough seizures; sugars running high and ID consulted Objective Vital Signs - 12hr 08/14/18 08/14/18 08/14/18 01:51 02:00 02:11 Temperature Pulse Rate 67 67 67 Respiratory 24 23 23 Rate Blood Pressure 117/59 118/57 118/57 O2 Sat by Pulse 100 100 100 Oximetry 08/14/18 08/14/18 08/14/18 02:21 02:30 02:41 Temperature Pulse Rate 69 69 68 Respiratory 22 23 24 Rate Blood Pressure 122/57 109/58 109/58 O2 Sat by Pulse 100 100 100 Oximetry 08/14/18 08/14/18 08/14/18 02:51 03:00 03:11 Temperature Pulse Rate 68 68 68 Respiratory 24 24 26 H Rate Blood Pressure 116/62 118/61 118/61 O2 Sat by Pulse 100 100 100 Oximetry 08/14/18 08/14/18 08/14/18 03:21 03:28 03:30 Temperature 97.6 F Pulse Rate 68 71 Respiratory 22 13 Rate Blood Pressure 116/62 128/61 O2 Sat by Pulse 100 100 Oximetry 08/14/18 08/14/18 08/14/18 03:41 03:51 04:00 Temperature Pulse Rate 69 71 70 Respiratory 21 12 25 H Rate Blood Pressure 128/61 118/61 116/63 O2 Sat by Pulse 100 100 100 Oximetry 08/14/18 08/14/18 08/14/18 04:11 04:21 04:30 Temperature Pulse Rate 71 71 71 Respiratory 13 28 H 25 H Rate Blood Pressure 116/63 122/61 120/61 O2 Sat by Pulse 100 100 100 Oximetry 08/14/18 08/14/18 08/14/18 04:41 04:51 04:54 Temperature Pulse Rate 70 71 70 Respiratory 23 24 Rate Blood Pressure 120/61 120/61 120/61 O2 Sat by Pulse 100 100 100 Oximetry 08/14/18 08/14/18 08/14/18 05:00 05:11 05:21 Temperature Pulse Rate 70 71 72 Respiratory 26 H 25 H 24 Rate Blood Pressure 119/61 119/61 125/65 O2 Sat by Pulse 100 100 100 Oximetry 0508/14/18 08/14/18 05:30 05:41 05:51 Temperature Pulse Rate 71 70 70 Respiratory 28 H 23 25 H Rate Blood Pressure 126/64 126/64 127/62 O2 Sat by Pulse 100 100 100 Oximetry 08/14/18 08/14/18 08/14/18 06:00 06:11 06:21 Temperature Pulse Rate 72 70 71 Respiratory 22 25 H 25 H Rate Blood Pressure 128/61 128/61 127/61 O2 Sat by Pulse 100 100 100 Oximetry 08/14/18 08/14/18 08/14/18 06:30 06:40 06:50 Temperature Pulse Rate 74 73 72 Respiratory 32 H 18 24 Rate Blood Pressure 120/57 120/57 117/59 O2 Sat by Pulse 100 100 100 Oximetry 08/14/18 08/14/18 08/14/18 07:00 07:11 07:21 Temperature Pulse Rate 73 75 73 Respiratory 24 21 25 H Rate Blood Pressure 117/58 117/59 112/63 O2 Sat by Pulse 100 100 100 Oximetry 08/14/18 08/14/18 08/14/18 07:30 07:32 07:41 Temperature Pulse Rate 73 73 73 Respiratory 24 26 H Rate Blood Pressure 118/58 118/58 117/58 O2 Sat by Pulse 100 100 100 Oximetry 08/14/18 08/14/18 08/14/18 07:51 08:00 08:11 Temperature 97.3 F L Pulse Rate 73 77 73 Respiratory 28 H 24 26 H Rate Blood Pressure 120/61 120/61 101/51 O2 Sat by Pulse 100 100 100 Oximetry 08/14/18 08/14/18 08/14/18 08:21 08:30 08:41 Temperature Pulse Rate 75 74 74 Respiratory 25 H 26 H 25 H Rate Blood Pressure 101/54 103/55 103/55 O2 Sat by Pulse 100 100 100 Oximetry 08/14/18 08/14/18 08/14/18 08:51 09:00 09:11 Temperature Pulse Rate 77 74 73 Respiratory 19 25 H Rate Blood Pressure 108/56 110/58 103/55 O2 Sat by Pulse 97 99 100 Oximetry 08/14/18 08/14/18 08/14/18 09:21 09:30 09:41 Temperature Pulse Rate 73 72 71 Respiratory 26 H 27 H 21 Rate Blood Pressure 106/50 104/52 110/58 O2 Sat by Pulse 100 100 100 Oximetry 08/14/18 08/14/18 08/14/18 09:51 10:00 10:11 Temperature Pulse Rate 70 70 70 Respiratory 24 24 16 Rate Blood Pressure 104/53 104/52 104/52 O2 Sat by Pulse 100 100 100 Oximetry 08/14/18 08/14/18 08/14/18 10:21 10:30 10:41 Temperature Pulse Rate 70 70 70 Respiratory 20 11 L 13 Rate Blood Pressure 109/51 107/54 104/52 O2 Sat by Pulse 100 100 100 Oximetry 08/14/18 08/14/18 08/14/18 10:51 11:00 12:00 Temperature Pulse Rate 69 69 69 Respiratory 28 H 27 H Rate Blood Pressure 111/53 110/52 102/54 O2 Sat by Pulse 100 100 100 Oximetry Constitutional: no acute distress, other (Elderly looking AAM, normocephalic resting in bed on MVS) Eyes: non-icteric ENT: oropharynx moist, other (ETT 2324 cm JOVI) Neck: supple, no lymphadenopathy, no JVD Effort: mildly labored Ascultation: Bilateral: diminished breath sounds, rhonchi Percussion: Bilateral: not dull Cardiovascular: regular rate and rhythm Gastrointestinal: normoactive bowel sounds, soft, non-tender, non-distended Integumentary: normal Extremities: no cyanosis, pulses normal, no ischemia or petechiae, edema (trace ) Neurologic: unable to assess, other (slight pupillary constriction to light) CBC and BMP: 08/14/18 04:03 08/14/18 04:03 ABG, PT/INR, D-dimer: ABG POC ABG pH 7.432 (7.35-7.45) 08/14/18 04:56 POC ABG pCO2 33.5 (35-45) L 08/14/18 04:56 POC ABG pO2 153 (80-105) H 08/14/18 04:56 POC ABG HCO3 22.3 (22-26 mml/L) 08/14/18 04:56 POC ABG Total CO2 23 (23-27mmol/L) 08/14/18 04:56 POC ABG O2 Sat 99 08/14/18 04:56 PT/INR, D-dimer PT 16.5 Sec. (12.2-14.9) H 08/13/18 00:47 INR 1.25 (0.87-1.13) H 08/13/18 00:47 2742.50 ng/mlDDU (0-234) H 08/13/18 20:07 Abnormal lab findings: Abnormal Labs 08/12/18 08/12/18 08/12/18 21:44 21:44 21:44 WBC 15.5 H RBC 3.12 L Hgb 8.8 L Hct 28.9 L MCHC 31 L RDW 19.5 H [place] # Seg Neutrophils % Lymphocytes % (Manual) 48.0 H Seg Neutrophils # Lymphocytes # (Manual) 7.4 H PT 17.8 H INR 1.37 H APTT D-Dimer POC ABG pH POC ABG pCO2 POC ABG pO2 Sodium 159 H Potassium Chloride 118.5 H BUN 34 H Creatinine Glucose 161 H POC Glucose Lactic Acid Calcium Magnesium AST Alkaline Phosphatase Total Creatine Kinase CK-MB (CK-2) Troponin T 0.105 H* C-Reactive Protein Total Protein Albumin Cholesterol LDL Cholesterol Direct HDL Cholesterol Urine WBC (Auto) 08/13/18 08/13/18 08/13/18 00:32 00:47 00:47 WBC RBC Hgb 9.2 L Hct 29.6 L MCHC RDW [place] # Seg Neutrophils % Lymphocytes % (Manual) Seg Neutrophils # Lymphocytes # (Manual) PT 16.5 H INR 1.25 H APTT 37.3 H D-Dimer POC ABG pH POC ABG pCO2 POC ABG pO2 Sodium Potassium Chloride BUN Creatinine Glucose POC Glucose Lactic Acid Calcium Magnesium AST Alkaline Phosphatase Total Creatine Kinase 211 H CK-MB (CK-2) 7.7 H Troponin T 0.169 H* D C-Reactive Protein Total Protein Albumin Cholesterol 46 L LDL Cholesterol Direct 17 L HDL Cholesterol 6 L Urine WBC (Auto) 08/13/18 08/13/18 08/13/18 00:50 02:25 05:34 WBC RBC Hgb Hct MCHC RDW [place] # Seg Neutrophils % Lymphocytes % (Manual) Seg Neutrophils # Lymphocytes # (Manual) PT INR APTT D-Dimer POC ABG pH 7.503 H POC ABG pCO2 POC ABG pO2 253 H Sodium Potassium Chloride BUN Creatinine Glucose POC Glucose Lactic Acid Calcium Magnesium AST Alkaline Phosphatase Total Creatine Kinase 311 H CK-MB (CK-2) 10.4 H Troponin T 0.283 H* D C-Reactive Protein Total Protein Albumin Cholesterol LDL Cholesterol Direct HDL Cholesterol Urine WBC (Auto) > 182.0 H 08/13/18 08/13/18 08/13/18 06:35 10:10 10:10 WBC RBC Hgb Hct MCHC RDW [place] # Seg Neutrophils % Lymphocytes % (Manual) Seg Neutrophils # Lymphocytes # (Manual) PT INR APTT D-Dimer POC ABG pH 7.554 H POC ABG pCO2 33.5 L POC ABG pO2 220 H Sodium 158 H Potassium Chloride 117.1 H BUN 53 H Creatinine 2.0 H Glucose 247 H POC Glucose Lactic Acid Calcium 8.2 L Magnesium AST Alkaline Phosphatase Total Creatine Kinase 309 H CK-MB (CK-2) 4.1 H Troponin T 0.470 H* D C-Reactive Protein Total Protein Albumin Cholesterol LDL Cholesterol Direct HDL Cholesterol Urine WBC (Auto) 08/13/18 08/13/18 08/13/18 12:53 12:53 17:55 WBC RBC Hgb Hct MCHC RDW [place] # Seg Neutrophils % Lymphocytes % (Manual) Seg Neutrophils # Lymphocytes # (Manual) PT INR APTT D-Dimer POC ABG pH POC ABG pCO2 POC ABG pO2 Sodium Potassium Chloride BUN Creatinine Glucose POC Glucose 308 H Lactic Acid 2.80 H* Calcium Magnesium 2.50 H AST Alkaline Phosphatase Total Creatine Kinase CK-MB (CK-2) Troponin T C-Reactive Protein 16.90 H Total Protein Albumin Cholesterol LDL Cholesterol Direct HDL Cholesterol Urine WBC (Auto) 08/13/18 08/13/18 08/13/18 20:07 21:16 23:17 WBC RBC Hgb Hct MCHC RDW [place] # Seg Neutrophils % Lymphocytes % (Manual) Seg Neutrophils # Lymphocytes # (Manual) PT INR APTT D-Dimer 2742.50 H POC ABG pH 7.483 H POC ABG pCO2 30.8 L POC ABG pO2 150 H Sodium Potassium Chloride BUN Creatinine Glucose POC Glucose 245 H Lactic Acid Calcium Magnesium AST Alkaline Phosphatase Total Creatine Kinase CK-MB (CK-2) Troponin T C-Reactive Protein Total Protein Albumin Cholesterol LDL Cholesterol Direct HDL Cholesterol Urine WBC (Auto) 08/14/18 08/14/18 08/14/18 04:03 04:03 04:56 WBC 18.2 H RBC 2.62 L Hgb 7.3 L Hct 24.5 L MCHC RDW 18.9 H [place] # 1.2 H Seg Neutrophils % 79.4 H Lymphocytes % (Manual) Seg Neutrophils # 14.5 H Lymphocytes # (Manual) PT INR APTT D-Dimer POC ABG pH POC ABG pCO2 33.5 L POC ABG pO2 153 H Sodium 152 H Potassium 3.4 L Chloride 113.8 H BUN 72 H Creatinine 2.7 H Glucose 239 H POC Glucose Lactic Acid Calcium 7.6 L Magnesium AST 50 H Alkaline Phosphatase 219 H Total Creatine Kinase CK-MB (CK-2) Troponin T 0.409 H* C-Reactive Protein Total Protein 6.2 L Albumin 1.9 L Cholesterol LDL Cholesterol Direct HDL Cholesterol Urine WBC (Auto) 08/14/18 05:18 WBC RBC Hgb Hct MCHC RDW [place] # Seg Neutrophils % Lymphocytes % (Manual) Seg Neutrophils # Lymphocytes # (Manual) PT INR APTT D-Dimer POC ABG pH POC ABG pCO2 POC ABG pO2 Sodium Potassium Chloride BUN Creatinine Glucose POC Glucose 242 H Lactic Acid Calcium Magnesium AST Alkaline Phosphatase Total Creatine Kinase CK-MB (CK-2) Troponin T C-Reactive Protein Total Protein Albumin Cholesterol LDL Cholesterol Direct HDL Cholesterol Urine WBC (Auto) Chest x-ray: image reviewed (chest tube in place; no pneumothorax; ETT in good position) Allied health notes reviewed: nursing
[2018-08-14] MEDS: LANTUS SUB-Q SCH (15:12)
[2018-08-14] MEDS: HEPARIN/ 0.45% NACL-25,000 UNIT/500 ML 25,000 UNIT/500 ML BAG IV SCH (15:12)
[2018-08-14 15:57] LABS: Calcium 7.2 mg/dL (8.4-10.2)
--- NOTE | 2018-08-14 16:48 | Vascular Lab Report ---
PROCEDURE: VL VENOUS DUPLEX LE BILAT TECHNIQUE: Duplex Doppler ultrasound examination of the venous system of the right leg and left leg HISTORY: swelling; hypoxemia COMPARISONS: None FINDINGS: RIGHT LEG: Normal compressibility, vascular patency, and augmentation are present diffusely throughout the visua lized portion of the deep veins. No abnormal intraluminal echoes are visualized to suggest deep vein thrombus. IMPRESSION: No ultrasound evidence of DVT in the right leg LEFT LEG: Normal compressibility, vascular patency, and augmentation are present diffusely throughout the visua lized portion of the deep veins. No abnormal intraluminal echoes are visualized to suggest deep vein thrombus. IMPRESSION: No ultrasound evidence of DVT in the left leg This document is electronically signed by Fede Walden MD., Aug 14 2018 04:46:49 PM ET
--- NOTE | 2018-08-14 17:22 | Vascular Lab Report ---
PROCEDURE: Bilateral lower extremity duplex arterial ultrasound. TECHNIQUE: Duplex Doppler ultrasound of either bilateral lower extremity arteries or arterial bypass grafts was performed with image documentation. HISTORY: Poor pulses in left lower extremity. COMPARISONS: None. FINDINGS: RIGHT LOWER EXTREMITY: Arterial waveforms: Triphasic and biphasic through the distal superficial femoral artery. Monophasic in the popliteal artery and more distally. . Thrombus: None . Stenosis: None . Color signal: Normal . Significant segmental velocity differential: The velocity increases from 41 cm/s in the anterior tibi al artery to 99 cm/s in the dorsalis pedis artery. This suggests a significant stenosis in the anteri or tibial artery. Arterial bypass graft: Not present .Stenosis: None . LEFT LOWER EXTREMITY: Arterial waveforms: Triphasic and biphasic through the popliteal artery. Monophasic in the anterior tibial, posterior tibial and dorsalis pedis arteries. . Thrombus: None . Stenosis: None . Color signal: Normal . Significant segmental velocity differential: None . Arterial bypass graft: Not present .Stenosis: None . IMPRESSION: Possible stenosis in the right anterior tibial artery. No significant velocity different ial identified in the left lower extremity. This document is electronically signed by Jethro Reese MD., Aug 14 2018 05:20:25 PM ET
--- NOTE | 2018-08-14 17:44 | Ultrasound Report ---
PROCEDURE: US RENAL BILAT TECHNIQUE: Ultrasound examination of the kidneys and urinary bladder HISTORY: Acute kidney injury COMPARISONS: None FINDINGS: Visualized right kidney: 11.1 x 5.7 x 4.0 cm. Limited visualization of the right kidney due to chest tube and bandaging. Visualized left kidney: 10.6 x 5.8 x 5.2 cm Renal cortical thickness is 23 mm in the right kidney and 14 mm in the left kidney. Focal lesion: None Calculus: None Hydronephrosis: None Perinephric fluid: None Visualized urinary bladder: No evidence of focal abnormality. IMPRESSION: No sonographic evidence of renal pathology This document is electronically signed by Fede Walden MD., Aug 14 2018 05:42:49 PM ET
[2018-08-14 18:16] LABS: Creatinine,Urine 60.9 mg/dL (0.1-20.0)
[2018-08-14] MEDS: ARTIFICIAL TEARS OPHTH OINT OU PRN (22:04)
[2018-08-15] MEDS: ZOSYN/NS 2.25 GM/50ML 2.25 GM/50 ML BAG IV SCH ×4 (00:27→18:41)
[2018-08-15] MEDS: HumaLOG SUB-Q SCH ×7 (00:28→23:09)
[2018-08-15] MEDS: D5W 1,000 ML IV SCH ×2 (02:28→17:00)
[2018-08-15] MEDS: ARTIFICIAL TEARS OPHTH OINT OU PRN (04:26)
[2018-08-15 04:58] LABS: Hemoglobin 6.3 gm/dl (11.8-15.2)
--- NOTE | 2018-08-15 05:06 | XRay Report ---
PROCEDURE: XR CHEST 1V AP TECHNIQUE: Chest radiograph single view. HISTORY: follow up respiratory failure COMPARISONS: 08/14/2018 . FINDINGS: Heart: Normal. Mediastinum/Vessels: Normal. Lungs/Pleural space: Lungs are expanded. There are no infiltrates, effusions or pneumothoraces.. Bony thorax: No acute osseous abnormality. Life support devices: Endotracheal tube is in the mid trachea. There is a right-sided PICC line. The tip is in the superior vena cava. There is subcutaneous air in the right side of the chest and neck.. IMPRESSION: The heart size is normal.. Lungs are expanded. There are no infiltrates, effusions or pneumothoraces.. Endotracheal tube is in the mid trachea. There is a right-sided PICC line. The tip is in the superior vena cava. There is subcutaneous air in the right side of the chest and neck.. This document is electronically signed by Juan Redd MD., Aug 15 2018 05:04:27 AM ET
[2018-08-15 05:08] LABS: Calcium 7.1 mg/dL (8.4-10.2)
[2018-08-15 05:09] LABS: Hematocrit 19.7 % (35.5-45.6)
[2018-08-15] MEDS ORDERED: NACL 0.9% 500 ML 500 ML IV ONE ×4 (06:29→14:58)
[2018-08-15] MEDS ORDERED: LASIX IV ONE ×2 (06:30→09:30)
--- NOTE | 2018-08-15 07:01 | Progress Note ---
Assessment and Plan Acute hypoxemic respiratory failure on chronic on MVS . Status post cardiac arrest. Seizure disorder with breakthrough seizures. History of diabetes. History of cerebrovascular accident. Oropharyngeal dysphagia. History of seizures. - Continue MVS - Lung protective strategies - VAP bundle addressed - SBTs as tolerated -Vasopressor support as indicated to keep MAP>65 -Supportive transfusions, to keep HgB >7g/dL - Continue chest tube to continuous wall suction -Chest tube management, plan to discontinue chest tube after liberation from positiv pressure - Continue Keppra for seizures with prn ativan IV for breakthrough - Continue Stress ulcer & VTE prophylaxis - Continue bronchodilators with pulmonary hygiene per RT - Continue to wean supplemental oxygen to keep O2 sats 88-90% - Chronic home medications - Replete electrolytes as indicated - Monitor renal indices closely - Avoid nephrotoxic agents, adjust all medications for CrCL - Strict intake and output monitoring - Continue enteral nutrition as tolerated - Continue accuchecks with glycemic control - Target glucose of 140-180 mg/dL - Maintenance of sleep -wake cycle - Mobility as tolerated by hemodynamics - Influenza and pneumonia vaccination per protocol ....discussed with RT/RN in rounds PROGNOSIS: GUARDED -POOR CONDITION: CRITICAL CODE STATUS: FULL CODE The high probability of a clinically significant, sudden or life-threatening deterioration of the [respiratory, neurology, renal] system(s) required my full and direct attention, intervention and personal management. The aggregate critical care time was [36] minutes without overlap. Time includes spent on; [x] Data Review and interpretation [x] Patient assessment and monitoring of vital signs [x] Documentation [x] Medication orders and management Subjective Date of service: 08/15/18 Principal diagnosis: Acute hypoxemic resp failure; S/P cardiac arrest; Seizures; DM II; H/O CVA Interval history: Patient is seen today for: Acute hypoxemic respiratory failure on chronic; Status post cardiac arrest; Seizure disorder with breakthrough seizures; History of diabetes; History of cerebrovascular accident; Oropharyngeal dysphagia; History of seizures. Seen and examined at bedside; 24hour events reviewed; nursing and respiratory care staff consulted; no adverse overnight events reported to me; now off levophed drip with low normal blood pressure; remains on MVS; AMS is persistent; no emesis or overt aspiration; no breakthrough seizures; unresponsive Objective Vital Signs - 12hr 08/14/18 08/14/18 08/14/18 19:11 19:21 19:30 Temperature Pulse Rate 73 73 73 Respiratory 23 28 H 27 H Rate Blood Pressure 99/52 96/49 97/47 O2 Sat by Pulse 100 100 100 Oximetry 08/14/18 08/14/18 08/14/18 19:41 19:51 19:55 Temperature 98.5 F Pulse Rate 73 73 Respiratory 30 H 28 H Rate Blood Pressure 97/47 96/47 O2 Sat by Pulse 100 100 Oximetry 08/14/18 08/14/18 08/14/18 20:00 20:11 20:21 Temperature Pulse Rate 72 73 73 Respiratory 26 H 28 H 30 H Rate Blood Pressure 95/51 95/51 98/46 O2 Sat by Pulse 100 100 Oximetry 08/14/18 08/14/18 08/14/18 20:30 20:41 20:51 Temperature Pulse Rate 72 72 72 Respiratory 28 H 33 H 31 H Rate Blood Pressure 95/47 95/47 94/51 O2 Sat by Pulse 100 100 100 Oximetry 08/14/18 08/14/18 08/14/18 21:00 21:11 21:21 Temperature Pulse Rate 72 72 71 Respiratory 31 H 29 H 25 H Rate Blood Pressure 92/48 92/48 99/52 O2 Sat by Pulse 100 100 100 Oximetry 08/14/18 08/14/18 08/14/18 21:30 21:41 21:51 Temperature Pulse Rate 73 72 70 Respiratory 29 H 32 H 27 H Rate Blood Pressure 89/47 96/48 99/48 O2 Sat by Pulse 100 100 100 Oximetry 08/14/18 08/14/18 08/14/18 22:00 22:11 22:21 Temperature Pulse Rate 71 71 70 Respiratory 30 H 34 H 33 H Rate Blood Pressure 101/51 101/51 100/51 O2 Sat by Pulse 100 100 100 Oximetry 08/14/18 08/14/18 08/14/18 22:30 22:41 22:51 Temperature Pulse Rate 70 71 71 Respiratory 34 H 33 H 33 H Rate Blood Pressure 100/53 100/53 105/50 O2 Sat by Pulse 100 100 100 Oximetry 08/14/18 08/14/18 08/14/18 23:00 23:11 23:21 Temperature Pulse Rate 71 70 71 Respiratory 31 H 32 H 30 H Rate Blood Pressure 102/51 102/51 98/50 O2 Sat by Pulse 100 100 100 Oximetry 08/14/18 08/14/18 08/14/18 23:23 23:30 23:41 Temperature 97.8 F Pulse Rate 71 72 Respiratory 30 H 34 H Rate Blood Pressure 98/49 98/49 O2 Sat by Pulse 100 100 Oximetry 08/14/18 08/15/18 08/15/18 23:51 00:00 00:03 Temperature Pulse Rate 70 71 71 Respiratory 32 H 34 H 29 H Rate Blood Pressure 94/49 96/50 100/50 O2 Sat by Pulse 100 100 100 Oximetry 08/15/18 08/15/18 08/15/18 00:11 00:21 00:30 Temperature Pulse Rate 71 70 70 Respiratory 31 H 31 H 30 H Rate Blood Pressure 100/50 96/50 98/49 O2 Sat by Pulse 100 100 100 Oximetry 08/15/18 08/15/18 08/15/18 00:41 00:51 01:00 Temperature Pulse Rate 71 70 69 Respiratory 32 H 33 H 32 H Rate Blood Pressure 100/50 100/48 99/48 O2 Sat by Pulse 100 100 100 Oximetry 08/15/18 08/15/18 08/15/18 01:11 01:21 01:30 Temperature Pulse Rate 70 71 70 Respiratory 31 H 28 H 30 H Rate Blood Pressure 98/49 92/51 94/49 O2 Sat by Pulse 100 100 100 Oximetry 08/15/18 08/15/18 08/15/18 01:41 01:51 02:00 Temperature Pulse Rate 70 70 69 Respiratory 33 H 32 H 31 H Rate Blood Pressure 99/48 91/47 97/48 O2 Sat by Pulse 100 100 100 Oximetry 08/15/18 08/15/18 08/15/18 02:11 02:21 02:30 Temperature Pulse Rate 71 70 70 Respiratory 28 H 33 H 28 H Rate Blood Pressure 97/48 96/47 94/47 O2 Sat by Pulse 100 100 100 Oximetry 08/15/18 08/15/18 08/15/18 02:41 02:51 03:00 Temperature Pulse Rate 70 69 69 Respiratory 33 H 32 H 32 H Rate Blood Pressure 94/47 93/49 93/49 O2 Sat by Pulse 100 100 100 Oximetry 08/15/18 08/15/18 08/15/18 03:11 03:13 03:21 Temperature 98.4 F Pulse Rate 68 69 Respiratory 29 H 28 H Rate Blood Pressure 93/49 97/48 O2 Sat by Pulse 100 100 Oximetry 08/15/18 08/15/18 08/15/18 03:30 03:41 03:51 Temperature Pulse Rate 69 68 68 Respiratory 28 H 26 H 29 H Rate Blood Pressure 95/47 97/48 95/49 O2 Sat by Pulse 100 100 100 Oximetry 08/15/18 08/15/18 08/15/18 04:00 04:11 04:21 Temperature Pulse Rate 68 67 67 Respiratory 26 H 24 30 H Rate Blood Pressure 97/48 95/47 101/48 O2 Sat by Pulse 100 100 100 Oximetry 08/15/18 08/15/18 08/15/18 04:30 04:41 04:51 Temperature Pulse Rate 67 66 69 Respiratory 26 H 26 H 30 H Rate Blood Pressure 95/49 97/48 96/49 O2 Sat by Pulse 100 100 100 Oximetry 08/15/18 08/15/18 08/15/18 05:00 05:11 05:21 Temperature Pulse Rate 67 66 65 Respiratory 32 H 29 H 26 H Rate Blood Pressure 92/49 92/49 99/47 O2 Sat by Pulse 100 100 100 Oximetry 08/15/18 08/15/18 08/15/18 05:25 05:30 05:41 Temperature Pulse Rate 67 66 65 Respiratory 27 H 25 H Rate Blood Pressure 99/47 103/46 103/46 O2 Sat by Pulse 100 100 100 Oximetry 08/15/18 08/15/18 05:51 06:00 Temperature Pulse Rate 65 65 Respiratory 26 H 28 H Rate Blood Pressure 98/46 95/47 O2 Sat by Pulse 100 100 Oximetry Constitutional: no acute distress, comatose, other (Elderly looking AAM, normocephalic resting in bed on MVS, no cough on suctioning) Eyes: non-icteric ENT: oropharynx moist, other (ETT 23 cm JOVI) Neck: supple, no lymphadenopathy, no JVD Effort: normal Ascultation: Bilateral: diminished breath sounds, rhonchi Percussion: Bilateral: not dull Cardiovascular: regular rate and rhythm Gastrointestinal: normoactive bowel sounds, soft, non-tender, non-distended Integumentary: normal, other (Right UExt PICC) Extremities: no cyanosis, pulses normal, no ischemia or petechiae, edema (trace ) Neurologic: unable to assess, other (slight pupillary constriction to light) Psychiatric: other (unable to assess secondary to mental status) CBC and BMP: 08/19/18 05:16 08/19/18 05:16 ABG, PT/INR, D-dimer: ABG POC ABG pH 7.494 (7.35-7.45) H 08/15/18 05:26 POC ABG pO2 155 (80-105) H 08/15/18 05:26 POC ABG HCO3 20.9 (22-26 mml/L) 08/15/18 05:26 POC ABG Total CO2 22 (23-27mmol/L) 08/15/18 05:26 POC ABG O2 Sat 100 08/15/18 05:26 PT/INR, D-dimer PT 16.5 Sec. (12.2-14.9) H 08/13/18 00:47 INR 1.25 (0.87-1.13) H 08/13/18 00:47 2742.50 ng/mlDDU (0-234) H 08/13/18 20:07 Abnormal lab findings: Abnormal Labs 08/12/18 08/12/18 08/12/18 21:44 21:44 21:44 WBC 15.5 H RBC 3.12 L Hgb 8.8 L Hct 28.9 L MCHC 31 L RDW 19.5 H [place] # Seg Neutrophils % Lymphocytes % (Manual) 48.0 H Seg Neutrophils # Lymphocytes # (Manual) 7.4 H PT 17.8 H INR 1.37 H APTT D-Dimer Heparin Anti-Xa Level POC ABG pH POC ABG pCO2 POC ABG pO2 Sodium 159 H Potassium Chloride 118.5 H BUN 34 H Creatinine Glucose 161 H POC Glucose Lactic Acid Calcium Magnesium AST Alkaline Phosphatase Total Creatine Kinase CK-MB (CK-2) Troponin T 0.105 H* C-Reactive Protein Total Protein Albumin Cholesterol LDL Cholesterol Direct HDL Cholesterol Urine WBC (Auto) Urine Creatinine Urine Total Protein 08/13/18 08/13/18 08/13/18 00:32 00:47 00:47 WBC RBC Hgb 9.2 L Hct 29.6 L MCHC RDW [place] # Seg Neutrophils % Lymphocytes % (Manual) Seg Neutrophils # Lymphocytes # (Manual) PT 16.5 H INR 1.25 H APTT 37.3 H D-Dimer Heparin Anti-Xa Level POC ABG pH POC ABG pCO2 POC ABG pO2 Sodium Potassium Chloride BUN Creatinine Glucose POC Glucose Lactic Acid Calcium Magnesium AST Alkaline Phosphatase Total Creatine Kinase 211 H CK-MB (CK-2) 7.7 H Troponin T 0.169 H* D C-Reactive Protein Total Protein Albumin Cholesterol 46 L LDL Cholesterol Direct 17 L HDL Cholesterol 6 L Urine WBC (Auto) Urine Creatinine Urine Total Protein 08/13/18 08/13/18 08/13/18 00:50 02:25 05:34 WBC RBC Hgb Hct MCHC RDW [place] # Seg Neutrophils % Lymphocytes % (Manual) Seg Neutrophils # Lymphocytes # (Manual) PT INR APTT D-Dimer Heparin Anti-Xa Level POC ABG pH 7.503 H POC ABG pCO2 POC ABG pO2 253 H Sodium Potassium Chloride BUN Creatinine Glucose POC Glucose Lactic Acid Calcium Magnesium AST Alkaline Phosphatase Total Creatine Kinase 311 H CK-MB (CK-2) 10.4 H Troponin T 0.283 H* D C-Reactive Protein Total Protein Albumin Cholesterol LDL Cholesterol Direct HDL Cholesterol Urine WBC (Auto) > 182.0 H Urine Creatinine Urine Total Protein 08/13/18 08/13/18 08/13/18 06:35 10:10 10:10 WBC RBC Hgb Hct MCHC RDW [place] # Seg Neutrophils % Lymphocytes % (Manual) Seg Neutrophils # Lymphocytes # (Manual) PT INR APTT D-Dimer Heparin Anti-Xa Level POC ABG pH 7.554 H POC ABG pCO2 33.5 L POC ABG pO2 220 H Sodium 158 H Potassium Chloride 117.1 H BUN 53 H Creatinine 2.0 H Glucose 247 H POC Glucose Lactic Acid Calcium 8.2 L Magnesium AST Alkaline Phosphatase Total Creatine Kinase 309 H CK-MB (CK-2) 4.1 H Troponin T 0.470 H* D C-Reactive Protein Total Protein Albumin Cholesterol LDL Cholesterol Direct HDL Cholesterol Urine WBC (Auto) Urine Creatinine Urine Total Protein 08/13/18 08/13/18 08/13/18 12:53 12:53 17:55 WBC RBC Hgb Hct MCHC RDW [place] # Seg Neutrophils % Lymphocytes % (Manual) Seg Neutrophils # Lymphocytes # (Manual) PT INR APTT D-Dimer Heparin Anti-Xa Level POC ABG pH POC ABG pCO2 POC ABG pO2 Sodium Potassium Chloride BUN Creatinine Glucose POC Glucose 308 H Lactic Acid 2.80 H* Calcium Magnesium 2.50 H AST Alkaline Phosphatase Total Creatine Kinase CK-MB (CK-2) Troponin T C-Reactive Protein 16.90 H Total Protein Albumin Cholesterol LDL Cholesterol Direct HDL Cholesterol Urine WBC (Auto) Urine Creatinine Urine Total Protein 08/13/18 08/13/18 08/13/18 20:07 21:16 23:17 WBC RBC Hgb Hct MCHC RDW [place] # Seg Neutrophils % Lymphocytes % (Manual) Seg Neutrophils # Lymphocytes # (Manual) PT INR APTT D-Dimer 2742.50 H Heparin Anti-Xa Level POC ABG pH 7.483 H POC ABG pCO2 30.8 L POC ABG pO2 150 H Sodium Potassium Chloride BUN Creatinine Glucose POC Glucose 245 H Lactic Acid Calcium Magnesium AST Alkaline Phosphatase Total Creatine Kinase CK-MB (CK-2) Troponin T C-Reactive Protein Total Protein Albumin Cholesterol LDL Cholesterol Direct HDL Cholesterol Urine WBC (Auto) Urine Creatinine Urine Total Protein 08/14/18 08/14/18 08/14/18 04:03 04:03 04:56 WBC 18.2 H RBC 2.62 L Hgb 7.3 L Hct 24.5 L MCHC RDW 18.9 H [place] # 1.2 H Seg Neutrophils % 79.4 H Lymphocytes % (Manual) Seg Neutrophils # 14.5 H Lymphocytes # (Manual) PT INR APTT D-Dimer Heparin Anti-Xa Level POC ABG pH POC ABG pCO2 33.5 L POC ABG pO2 153 H Sodium 152 H Potassium 3.4 L Chloride 113.8 H BUN 72 H Creatinine 2.7 H Glucose 239 H POC Glucose Lactic Acid Calcium 7.6 L Magnesium AST 50 H Alkaline Phosphatase 219 H Total Creatine Kinase CK-MB (CK-2) Troponin T 0.409 H* C-Reactive Protein Total Protein 6.2 L Albumin 1.9 L Cholesterol LDL Cholesterol Direct HDL Cholesterol Urine WBC (Auto) Urine Creatinine Urine Total Protein 08/14/18 08/14/18 08/14/18 05:18 13:38 15:35 WBC RBC Hgb Hct MCHC RDW [place] # Seg Neutrophils % Lymphocytes % (Manual) Seg Neutrophils # Lymphocytes # (Manual) PT INR APTT D-Dimer Heparin Anti-Xa Level POC ABG pH POC ABG pCO2 POC ABG pO2 Sodium 150 H Potassium 3.2 L Chloride 114.5 H BUN 69 H Creatinine 2.3 H Glucose 247 H POC Glucose 242 H 296 H Lactic Acid Calcium 7.2 L Magnesium AST Alkaline Phosphatase Total Creatine Kinase CK-MB (CK-2) Troponin T C-Reactive Protein Total Protein Albumin Cholesterol LDL Cholesterol Direct HDL Cholesterol Urine WBC (Auto) Urine Creatinine Urine Total Protein 08/14/18 08/14/18 08/14/18 17:01 17:20 23:47 WBC RBC Hgb Hct MCHC RDW [place] # Seg Neutrophils % Lymphocytes % (Manual) Seg Neutrophils # Lymphocytes # (Manual) PT INR APTT D-Dimer Heparin Anti-Xa Level POC ABG pH POC ABG pCO2 POC ABG pO2 Sodium Potassium Chloride BUN Creatinine Glucose POC Glucose 261 H 280 H Lactic Acid Calcium Magnesium AST Alkaline Phosphatase Total Creatine Kinase CK-MB (CK-2) Troponin T C-Reactive Protein Total Protein Albumin Cholesterol LDL Cholesterol Direct HDL Cholesterol Urine WBC (Auto) Urine Creatinine 60.9 H Urine Total Protein 64 H 08/15/18 08/15/18 08/15/18 04:05 04:05 04:05 WBC RBC Hgb 6.3 L Hct 19.7 L* MCHC RDW [place] # Seg Neutrophils % Lymphocytes % (Manual) Seg Neutrophils # Lymphocytes # (Manual) PT INR APTT D-Dimer Heparin Anti-Xa Level 0.17 L POC ABG pH POC ABG pCO2 POC ABG pO2 Sodium 146 H Potassium 3.0 L Chloride 110.6 H BUN 64 H Creatinine 2.2 H Glucose 231 H POC Glucose Lactic Acid Calcium 7.1 L Magnesium AST Alkaline Phosphatase Total Creatine Kinase CK-MB (CK-2) Troponin T C-Reactive Protein Total Protein Albumin Cholesterol LDL Cholesterol Direct HDL Cholesterol Urine WBC (Auto) Urine Creatinine Urine Total Protein 08/15/18 08/15/18 05:21 05:26 WBC RBC Hgb Hct MCHC RDW [place] # Seg Neutrophils % Lymphocytes % (Manual) Seg Neutrophils # Lymphocytes # (Manual) PT INR APTT D-Dimer Heparin Anti-Xa Level POC ABG pH 7.494 H POC ABG pCO2 POC ABG pO2 155 H Sodium Potassium Chloride BUN Creatinine Glucose POC Glucose 271 H Lactic Acid Calcium Magnesium AST Alkaline Phosphatase Total Creatine Kinase CK-MB (CK-2) Troponin T C-Reactive Protein Total Protein Albumin Cholesterol LDL Cholesterol Direct HDL Cholesterol Urine WBC (Auto) Urine Creatinine Urine Total Protein Chest x-ray: image reviewed Allied health notes reviewed: nursing
[2018-08-15] MEDS: PEPCID IV SCH (10:55)
[2018-08-15] MEDS: ASPIRIN PR SCH (10:55)
[2018-08-15] MEDS: SODIUM CHLORIDE FLUSH SYRINGE 10 ML IV SCH (10:56)
[2018-08-15] MEDS: POTASSIUM CHLORIDE FEEDTUBE SCH ×2 (10:56→14:00)
[2018-08-15] MEDS: KEPPRA PO SCH ×3 (10:56→21:36)
[2018-08-15] MEDS: LANTUS SUB-Q SCH ×2 (10:57→23:09)
--- NOTE | 2018-08-15 11:29 | Progress Note ---
Assessment and Plan Pt presented s/p multiple cardiac arrests with prologned down time - per neurology, pt will likely not recover. Pt's initial ECG was suggestive of ischemia/infarction, repeat ECG shows resolution of ST changes, Ian elevated. Will continue with conservative cardiac management at this time given overall poor prognosis. Cont heparin gtt and monitor H/H. Cont ASA and statin, consider addition of BB if BPs permit. 08/15/2018>No significant change in patient's status,cardiac status is stable.Continue supportive treatment.Labs reviewed .HgB and K+ were noted to be low. Subjective Date of service: 08/15/18 Principal diagnosis: Acute hypoxemic resp failure; S/P cardiac arrest; Seizures; DM II; H/O CVA Interval history: Patient is intubated,comfortable.in no acute distress,monitor showing S.R. Objective Vital Signs Temp Pulse Resp BP Pulse Ox 08/15/18 09:11 67 19 108/50 100 08/15/18 09:00 67 19 108/50 100 08/15/18 08:51 66 19 108/50 100 08/15/18 08:41 66 24 97/47 100 08/15/18 08:31 66 97/47 100 08/15/18 08:30 67 30 H 97/47 99 08/15/18 08:21 67 28 H 102/49 100 08/15/18 08:11 67 30 H 98/48 99 08/15/18 08:00 97.5 F L 67 26 H 98/48 98 08/15/18 07:51 67 28 H 105/48 99 08/15/18 07:41 68 24 96/44 97 08/15/18 07:30 67 25 H 96/44 100 08/15/18 07:21 66 30 H 96/47 100 08/15/18 07:11 67 32 H 97/49 100 08/15/18 07:00 66 29 H 97/49 100 08/15/18 06:51 67 30 H 94/47 100 08/15/18 06:41 65 31 H 95/47 95 08/15/18 06:30 66 26 H 95/47 100 08/15/18 06:21 66 27 H 96/50 100 08/15/18 06:11 67 26 H 95/47 100 08/15/18 06:00 65 28 H 95/47 100 05/18/19 05:51 65 26 H 98/46 100 05/18/19 05:41 65 25 H 103/46 100 05/18/19 05:30 66 27 H 103/46 100 05/18/19 05:25 67 99/47 100 05/18/19 05:21 65 26 H 99/47 100 05/18/19 05:11 66 29 H 92/49 100 05/18/19 05:00 67 32 H 92/49 100 05/18/19 04:51 69 30 H 96/49 100 05/18/19 04:41 66 26 H 97/48 100 05/18/19 04:30 67 26 H 95/49 100 05/18/19 04:21 67 30 H 101/48 100 05/18/19 04:11 67 24 95/47 100 05/18/19 04:00 68 26 H 97/48 100 05/18/19 03:51 68 29 H 95/49 100 05/18/19 03:41 68 26 H 97/48 100 05/18/19 03:30 69 28 H 95/47 100 05/18/19 03:21 69 28 H 97/48 100 05/18/19 03:13 98.4 F 05/18/19 03:11 68 29 H 93/49 100 05/18/19 03:00 69 32 H 93/49 100 05/18/19 02:51 69 32 H 93/49 100 05/18/19 02:41 70 33 H 94/47 100 05/18/19 02:30 70 28 H 94/47 100 05/18/19 02:21 70 33 H 96/47 100 05/18/19 02:11 71 28 H 97/48 100 05/18/19 02:00 69 31 H 97/48 100 05/18/19 01:51 70 32 H 91/47 100 05/18/19 01:41 70 33 H 99/48 100 05/18/19 01:30 70 30 H 94/49 100 05/18/19 01:21 71 28 H 92/51 100 05/18/19 01:11 70 31 H 98/49 100 05/18/19 01:00 69 32 H 99/48 100 05/18/19 00:51 70 33 H 100/48 100 05/18/19 00:41 71 32 H 100/50 100 05/18/19 00:30 70 30 H 98/49 100 05/18/19 00:21 70 31 H 96/50 100 05/18/19 00:11 71 31 H 100/50 100 05/18/19 00:03 71 29 H 100/50 100 05/18/19 00:00 71 34 H 96/50 100 05/17/19 23:51 70 32 H 94/49 100 05/17/19 23:41 72 34 H 98/49 100 05/17/19 23:30 71 30 H 98/49 100 05/17/19 23:23 97.8 F 05/17/19 23:21 71 30 H 98/50 100 05/17/19 23:11 70 32 H 102/51 100 05/17/19 23:00 71 31 H 102/51 100 05/17/19 22:51 71 33 H 105/50 100 05/17/19 22:41 71 33 H 100/53 100 05/17/19 22:30 70 34 H 100/53 100 05/17/19 22:21 70 33 H 100/51 100 05/17/19 22:11 71 34 H 101/51 100 05/17/19 22:00 71 30 H 101/51 100 05/17/19 21:51 70 27 H 99/48 100 05/17/19 21:41 72 32 H 96/48 100 05/17/19 21:30 73 29 H 89/47 100 05/17/19 21:21 71 25 H 99/52 100 05/17/19 21:11 72 29 H 92/48 100 05/17/19 21:00 72 31 H 92/48 100 05/17/19 20:51 72 31 H 94/51 100 05/17/19 20:41 72 33 H 95/47 100 05/17/19 20:30 72 28 H 95/47 100 05/17/19 20:21 73 30 H 98/46 100 05/17/19 20:11 73 28 H 95/51 100 05/17/19 20:00 72 26 H 95/51 05/17/19 19:55 98.5 F 05/17/19 19:51 73 28 H 96/47 100 05/17/19 19:41 73 30 H 97/47 100 05/17 19:30 73 27 H 97/47 100 08/14/18 19:21 73 28 H 96/49 100 08/14/18 19:11 73 23 99/52 100 08/14/18 19:00 73 25 H 99/52 100 08/14/18 18:51 73 30 H 99/52 100 08/14/18 18:41 73 30 H 105/52 100 08/14/18 18:30 74 31 H 105/52 100 08/14/18 18:21 73 24 113/55 100 08/14/18 18:11 74 33 H 114/58 100 08/14/18 18:00 74 32 H 114/58 100 08/14/18 17:51 75 33 H 105/58 100 08/14/18 17:41 72 31 H 114/57 100 08/14/18 17:30 72 32 H 114/57 100 08/14/18 17:21 72 34 H 116/56 100 08/14/18 17:10 72 33 H 105/58 100 08/14/18 17:00 72 33 H 105/58 100 08/14/18 16:51 71 35 H 108/56 100 08/14/18 16:41 74 33 H 112/57 100 08/14/18 16:30 71 34 H 112/57 100 08/14/18 16:21 71 31 H 102/54 100 08/14/18 16:10 70 33 H 108/57 100 08/14/18 16:00 97.7 F 70 34 H 108/56 100 08/14/18 15:51 70 34 H 111/62 100 08/14/18 15:41 70 33 H 108/58 100 08/14/18 12:00 97.2 F L 69 102/54 100 - Physical Examination General: Other (intubated, sedated, nonresponsive) Neck: Positive: trachea midline Cardiac: Positive: Reg Rate and Rhythm Lungs: Positive: Normal Breath Sounds Neuro: Positive: Other (intubated, sedated, nonresponsive) Abdomen: Positive: Unremarkable Extremities: Absent: edema - Labs and Meds Coagulation 08/15/18 Range/Units 06:35 APTT 79.0 H* (24.2-36.6) Sec. CBC 08/15/18 Range/Units 04:05 Hgb 6.3 L (11.8-15.2) gm/dl Hct 19.7 L* (35.5-45.6) % Plt Count 210 (140-440) K/mm3 Comprehensive Metabolic Panel 08/14/18 08/15/18 Range/Units 15:35 04:05 Sodium 150 H 146 H (137-145) mmol/L Potassium 3.2 L 3.0 L (3.6-5.0) mmol/L Chloride 114.5 H 110.6 H (98-107) mmol/L Carbon Dioxide 22 22 (22-30) mmol/L BUN 69 H 64 H (9-20) mg/dL Creatinine 2.3 H 2.2 H (0.8-1.5) mg/dL Glucose 247 H 231 H (75-100) mg/dL Calcium 7.2 L 7.1 L (8.4-10.2) mg/dL - Imaging and Cardiology EKG: report reviewed, image reviewed Echo: report reviewed (GLORIA done 05/12/2018 showed EF 60-65%, no thromcus, negative bubble study, mild TR, mild MR. TTE done 05/08/2018 showed EF 60%, mild LVH, grade 1 diastolic dysfunction, negative bubble study. ) - EKG Sinus rhythms and dysrhythmias: sinus tachycardia Repolarization changes or abnormalities: ST or T wave suggestive of ischemia - Allied health notes Allied health notes reviewed: nursing
[2018-08-15] MEDS ORDERED: LANTUS SUB-Q ONE (12:17)
[2018-08-15] MEDS ORDERED: LANTUS SUB-Q SCH (12:18)
--- NOTE | 2018-08-15 13:04 | Progress Note ---
Assessment and Plan Assessment and plan: 69-year-old man with a history of chronic respiratory failure who is status post trach, per his family the trach was being downsized -The patient developed respiratory distress at home, EMS was called, EMS was trying to back 3 and refusing some obstruction. He was pulseless 2. Received CPR and had return of spontaneous circulation 2. Upon arrival in the ER the patient was again noted to not have a pulse he received CPR, kilocalorie volumes on the tracheostomy which is suspicious for a week as he had a continuous emphysema. Therefore the patient was orally intubated. He was found to have a right pneumothorax and received percutaneous chest tube sp cardiac arrest x3 Acute on chronic respiratory failure on mechanical ventilation less than 96 hours Trach has been removed patient is orally intubated, continue ventilator management per pulmonology Right pneumothorax Status post chest tube, mgt per pulmonology Anoxic brain injury and status epilepticus Patient was noted to be having seizures, he received Ativan and Keppra, neurology consult appreciated, poor prognosis, poor likelihood of recovery, suspect brain . Hypernatremia/free water deficits Continue free water via G-tube, continue hypotonic IV solutio acute kidney injury likely due to ATN Nephrology consult, continue IV fluid, avoid renal toxic agents Acute [place] -Likely a type II [place] Elevated troponin unit after patient has had cardiac arrest 3, expected outcome, cardiology consult appreciated, continue heparin drip, aspirin and stat in -Patient would have to clinically improved undergo any coronary risk stratification Severe malnutrition Dietitian consult, continue tube feedings UTI/sepsis Continue antibiotics, follow-up urine cultures Urinary retention continue douglass, do not remove DVT prophylaxis; patient is fully anticoagulated on heparin drip Discussed with family, poor prognosis, they are still hopeful, awaiting NM brain flow scan History Interval history: Patient remains intubated no shaking, no seizures He remains nonresponsive No fevers No vomiting Hospitalist Physical - Physical exam Narrative exam: General.: Obtunded HEENT: Moist mucous membranes, no lymphadenopathy Neck: supple, dressing noted over his neck, trach has been removed Cardiac: S1-S2 heard Lungs: clear to auscultation bilaterally Abdomen: soft , nondistended, bowel sounds positive Extremities: no edema clubbing or cyanosis Skin: Dressing noted on lower extremities Neurologic: upward gaze, pupils are sluggish, patient is lacking most reflexes, no gag refrlex, he is nonresponsive to painful stimuli, extremities are flaccid Psych: Obtunded - Constitutional Vitals: Temp Pulse Resp BP Pulse Ox 97.3 F L 70 30 H 108/51 100 08/15/18 12:00 08/15/18 12:50 08/15/18 12:00 08/15/18 12:50 08/15/18 12:50 General appearance: Present: other (twitching, nonresponsive, intubated) Results - Labs CBC & Chem 7: 08/16/18 11:30 08/16/18 11:30 Labs: Laboratory Last Values WBC 18.2 K/mm3 (4.5-11.0) H 08/14/18 04:03 RBC 2.62 M/mm3 (3.65-5.03) L 08/14/18 04:03 Hgb 6.3 gm/dl (11.8-15.2) L 08/15/18 04:05 Hct 19.7 % (35.5-45.6) L* 08/15/18 04:05 MCV 88 fl (84-94) 08/14/18 04:03 MCH 28 pg (28-32) 08/14/18 04:03 MCHC 32 % (32-34) 08/14/18 04:03 RDW 18.9 % (13.2-15.2) H 08/14/18 04:03 Plt Count 210 K/mm3 (140-440) 08/15/18 04:05 Lymph % (Auto) 13.6 % (13.4-35.0) 08/14/18 04:03 [place] % (Auto) 6.4 % (0.0-7.3) 08/14/18 04:03 Eos % (Auto) 0.1 % (0.0-4.3) 08/14/18 04:03 Baso % (Auto) 0.5 % (0.0-1.8) 08/14/18 04:03 Lymph # 2.5 K/mm3 (1.2-5.4) 08/14/18 04:03 [place] # 1.2 K/mm3 (0.0-0.8) H 08/14/18 04:03 Eos # 0.0 K/mm3 (0.0-0.4) 08/14/18 04:03 Baso # 0.1 K/mm3 (0.0-0.1) 08/14/18 04:03 Add Manual Diff Complete 08/12/18 21:44 Total Counted 100 08/12/18 21:44 Seg Neutrophils % 79.4 % (40.0-70.0) H 08/14/18 04:03 Seg Neuts % (Manual) 44.0 % (40.0-70.0) 08/12/18 21:44 0 % 08/12/18 21:44 48.0 % (13.4-35.0) H 08/12/18 21:44 Reactive Lymphs % (Man) 0 % 08/12/18 21:44 2.0 % (0.0-7.3) 08/12/18 21:44 1.0 % (0.0-4.3) 08/12/18 21:44 0 % (0.0-1.8) 08/12/18 21:44 1.0 % 08/12/18 21:44 4.0 % 08/12/18 21:44 0 % 08/12/18 21:44 0 % 08/12/18 21:44 Nucleated RBC % Not Reportable 08/12/18 21:44 Seg Neutrophils # 14.5 K/mm3 (1.8-7.7) H 08/14/18 04:03 Seg Neutrophils # Man 6.8 K/mm3 (1.8-7.7) 08/12/18 21:44 Band Neutrophils # 0.0 K/mm3 08/12/18 21:44 7.4 K/mm3 (1.2-5.4) H 08/12/18 21:44 Abs React Lymphs (Man) 0.0 K/mm3 08/12/18 21:44 0.3 K/mm3 (0.0-0.8) 08/12/18 21:44 0.2 K/mm3 (0.0-0.4) 08/12/18 21:44 0.0 K/mm3 (0.0-0.1) 08/12/18 21:44 0.2 K/mm3 08/12/18 21:44 0.6 K/mm3 08/12/18 21:44 0.0 K/mm3 08/12/18 21:44 Blast Cells # 0.0 K/mm3 08/12/18 21:44 WBC Morphology Not Reportable 08/12/18 21:44 Hypersegmented Neuts Not Reportable 08/12/18 21:44 Hyposegmented Neuts Not Reportable 08/12/18 21:44 Hypogranular Neuts Not Reportable 08/12/18 21:44 Not Reportable 08/12/18 21:44 Not Reportable 08/12/18 21:44 Not Reportable 08/12/18 21:44 Not Reportable 08/12/18 21:44 Not Reportable 08/12/18 21:44 Not Reportable 08/12/18 21:44 Consistent w auto 08/12/18 21:44 Not Reportable 08/12/18 21:44 Plt Clumps, EDTA Not Reportable 08/12/18 21:44 Not Reportable 08/12/18 21:44 Not Reportable 08/12/18 21:44 Not Reportable 08/12/18 21:44 Plt Morphology Comment Not Reportable 08/12/18 21:44 RBC Morphology Not Reportable 08/12/18 21:44 Dimorphic RBCs Not Reportable 08/12/18 21:44 Not Reportable 08/12/18 21:44 Not Reportable 08/12/18 21:44 Not Reportable 08/12/18 21:44 Few 08/12/18 21:44 Not Reportable 08/12/18 21:44 Not Reportable 08/12/18 21:44 Not Reportable 08/12/18 21:44 Not Reportable 08/12/18 21:44 Not Reportable 08/12/18 21:44 Not Reportable 08/12/18 21:44 Not Reportable 08/12/18 21:44 Few 08/12/18 21:44 Not Reportable 08/12/18 21:44 Not Reportable 08/12/18 21:44 Not Reportable 08/12/18 21:44 Not Reportable 08/12/18 21:44 Not Reportable 08/12/18 21:44 Not Reportable 08/12/18 21:44 Few 08/12/18 21:44 Acanthocytes (Spur) Not Reportable 08/12/18 21:44 Rouleaux Not Reportable 08/12/18 21:44 Not Reportable 08/12/18 21:44 Not Reportable 08/12/18 21:44 Not Reportable 08/12/18 21:44 Not Reportable 08/12/18 21:44 Hem Pathologist Commnt No 08/12/18 21:44 PT 16.5 Sec. (12.2-14.9) H 08/13/18 00:47 INR 1.25 (0.87-1.13) H 08/13/18 00:47 APTT 79.0 Sec. (24.2-36.6) H* 08/15/18 06:35 2742.50 ng/mlDDU (0-234) H 08/13/18 20:07 Heparin Anti-Xa Level 0.17 U.I./ml (0.3-0.7) L 08/15/18 04:05 POC ABG pH 7.494 (7.35-7.45) H 08/15/18 05:26 POC ABG pCO2 33.5 (35-45) L 08/14/18 04:56 POC ABG pO2 155 (80-105) H 08/15/18 05:26 POC ABG HCO3 20.9 (22-26 mml/L) 08/15/18 05:26 POC ABG Total CO2 22 (23-27mmol/L) 08/15/18 05:26 POC ABG O2 Sat 100 08/15/18 05:26 POC ABG Base Excess -2 ((-2) - (+3)mmol/L) 08/15/18 05:26 28 % 08/15/18 05:26 Sodium 146 mmol/L (137-145) H 08/15/18 04:05 Potassium 3.0 mmol/L (3.6-5.0) L 08/15/18 04:05 Chloride 110.6 mmol/L (98-107) H 08/15/18 04:05 Carbon Dioxide 22 mmol/L (22-30) 08/15/18 04:05 16 mmol/L 08/15/18 04:05 BUN 64 mg/dL (9-20) H 08/15/18 04:05 2.2 mg/dL (0.8-1.5) H 08/15/18 04:05 Estimated GFR 35 ml/min 08/15/18 04:05 29 % 08/15/18 04:05 Glucose 231 mg/dL (75-100) H 08/15/18 04:05 POC Glucose 301 (70-105) H 08/15/18 12:10 Lactic Acid 2.80 mmol/L (0.7-2.0) H* 08/13/18 12:53 Calcium 7.1 mg/dL (8.4-10.2) L 08/15/18 04:05 Phosphorus 3.90 mg/dL (2.5-4.5) 08/15/18 04:05 Magnesium 2.20 mg/dL (1.7-2.3) 08/15/18 04:05 0.30 mg/dL (0.1-1.2) 08/14/18 04:03 AST 50 units/L (5-40) H 08/14/18 04:03 ALT 55 units/L (7-56) 08/14/18 04:03 219 units/L (35-129) H 08/14/18 04:03 309 units/L (55-170) H 08/13/18 10:10 CK-MB (CK-2) 4.1 ng/mL (0.0-4.0) H 08/13/18 10:10 CK-MB (CK-2) Rel Index 1.3 (0-4) 08/13/18 10:10 0.409 ng/mL (0.00-0.029) H* 08/14/18 04:03 16.90 mg/dL (0.00-1.30) H 08/13/18 12:53 6.2 g/dL (6.3-8.2) L 08/14/18 04:03 1.9 g/dL (3.9-5) L 08/14/18 04:03 0.4 % 08/14/18 04:03 Triglycerides 62 mg/dL (2-149) 08/13/18 00:32 Cholesterol 46 mg/dL (50-199) L 08/13/18 00:32 17 mg/dL (50-130) L 08/13/18 00:32 6 mg/dL (40-59) L 08/13/18 00:32 7.66 % 08/13/18 00:32 Yellow (Yellow) 08/13/18 00:50 Cloudy (Clear) 08/13/18 00:50 7.0 (5.0-7.0) 08/13/18 00:50 Ur Specific [place] 1.025 (1.003-1.030) 08/13/18 00:50 100 mg/dl mg/dL (Negative) 08/13/18 00:50 50 mg/dL (Negative) 08/13/18 00:50 Tr mg/dL (Negative) 08/13/18 00:50 Mod (Negative) 08/13/18 00:50 Neg (Negative) 08/13/18 00:50 Neg (Negative) 08/13/18 00:50 < 2.0 mg/dL (<2.0) 08/13/18 00:50 Ur Leukocyte Esterase Mod (Negative) 08/13/18 00:50 > 182.0 /HPF (0.0-6.0) H 08/13/18 00:50 > 182.0 /HPF (0.0-6.0) 08/13/18 00:50 2+ /HPF (Negative) 08/13/18 00:50 3+ /HPF 08/13/18 00:50 None seen (None Seen) 08/14/18 17:20 60.9 mg/dL (0.1-20.0) H 08/14/18 17:20 32 mmol/L 08/14/18 17:20 64 mg/dL (5-11.8) H 08/14/18 17:20 Presumptive negative 08/12/18 21:30 Presumptive negative 08/12/18 21:30 Ur Barbiturates Screen Presumptive negative 08/12/18 21:30 Ur Phencyclidine Scrn Presumptive negative 08/12/18 21:30 Ur Amphetamines Screen Presumptive negative 08/12/18 21:30 U Benzodiazepines Scrn Presumptive negative 08/12/18 21:30 Presumptive negative 08/12/18 21:30 U Marijuana (THC) Screen Presumptive negative 08/12/18 21:30 Disclamer 08/12/18 21:30 Blood Type O POSITIVE 08/12/18 21:44 Antibody Screen Negative 08/12/18 21:44 Active Medications - Current Medications Current Medications: Generic Name Dose Route Start Last Admin Trade Name Freq PRN Reason Stop Dose Admin Acetaminophen 650 mg 08/13/18 11:40 08/13/18 16:09 Tylenol PO 650 mg Q6H PRN Administration Fever >101 Lipase/Protease/Amylase 1 each 08/13/18 15:[address] 10,500 Unit FEEDTUBE PRN PRN For Clogged Feeding Tube Aspirin 300 mg 08/13/18 12:00 08/15/18 10:55 Aspirin MT 300 mg QDAY LENCHO Administration Atorvastatin Calcium 40 mg 08/14/18 22:00 08/14/18 21:35 Lipitor PO 40 mg QHS LENCHO Administration Dextrose 50 ml 08/13/18 01:34 D50w (25gm) Syringe IV PRN PRN Hypoglycemia Famotidine 20 mg 08/14/18 10:00 08/15/18 10:55 Pepcid IV 20 mg DAILY LENCHO Administration Hydrophilic Ointment 1 applic 08/13/18 12:21 Vaseline Lip Therapy TP Q2HR PRN Dry Lips Heparin Sodium/Sodium Chloride 25,000 unit in 500 mls @ 20 mls/hr 08/13/18 01:00 08/15/18 06:00 Heparin/ 0.45% Nacl-25,000 Unit/500 Ml IV 0 units/hr TITRATE LENCHO 0 mls/hr Titration Protocol 1,000 UNITS/HR Norepinephrine 4 mg in 250 mls @ 7.5 mls/hr 08/12/18 21:00 08/14/18 11:06 Levophed Drip 4 Mg/Ns 250 Ml IV 0 mcg/min TITR LENCHO 0 mls/hr Titration Protocol 2 MCG/MIN Dextrose 1,000 mls @ 100 mls/hr 08/13/18 03:00 08/15/18 02:28 D5w IV 75 mls/hr DIRECT LENCHO Administration Propofol 1,000 mg in 100 mls @ 2.177 mls/hr 08/13/18 13:00 08/14/18 16:00 Diprivan 10 Mg/Ml IV 5 mcg/kg/min TITR LENCHO 2.177 mls/hr Titration Protocol 5 MCG/KG/MIN Piperacillin Sod/Tazobactam Sod 2.25 gm in 50 mls @ 100 mls/hr 08/14/18 12:00 08/15/18 11:59 Zosyn/Ns 2.25 Gm/50ml IV 100 mls/hr Q6HR LENCHO Administration Fentanyl Citrate 2,000 mcg in 100 mls @ 3.629 mls/hr 08/14/18 13:00 Fentanyl Drip Premix IV TITR [facility] Protocol 1 MCG/KG/HR Insulin Glargine 15 units 08/15/18 12:18 Lantus SUB-Q DAILY [facility] Insulin Human Lispro 0 unit 08/13/18 06:00 08/15/18 12:28 Humalog SUB-Q 6 unit Q6HR [facility] Administration Protocol Levetiracetam 1,000 mg 08/13/18 15:00 08/15/18 10:57 Keppra PO 1,000 mg BID [facility] Administration Multi-Ingred Cream/Lotion/Oil/Oint 1 applic 08/13/18 12:21 08/15/18 04:26 Artificial Tears Ophth Oint OU 1 applic Q4HR PRN Administration Dry Eye(s) Ondansetron HCl 4 mg 08/13/18 01:34 Zofran IV Q8H PRN Nausea And Vomiting Simple Syrup 15 ml 08/13/18 15:55 Simple Syrup FEEDTUBE PRN PRN Hypoglycemia Simple Syrup 30 ml 08/13/18 15:55 Simple Syrup FEEDTUBE PRN PRN Hypoglycemia Sodium Bicarbonate 325 mg 08/13/18 15:55 Sodium Bicarbonate FEEDTUBE PRN PRN For Clogged Feeding Tube Sodium Chloride 10 ml 08/13/18 10:00 08/15/18 10:56 Sodium Chloride Flush Syringe 10 Ml IV 10 ml BID LENCHO Administration Sodium Chloride 10 ml 08/13/18 01:34 Sodium Chloride Flush Syringe 10 Ml IV PRN PRN LINE FLUSH Nutrition/Malnutrition Assess - Dietary Evaluation Nutrition/Malnutrition Findings: Nutrition Notes Start: 08/13/18 15:41 Freq: Status: Active Protocol: Document 08/13/18 15:41 RM (Rec: 08/13/18 15:55 RM [id number]) Nutrition Notes Need for Assessment generated from: MD Order Initial or Follow up Assessment Current Diagnosis Diabetes Other Pertinent Diagnosis UTI, Hx CVA, PEG, Sacral PU, Hx hydrocephalus Current Diet NPO Labs/Tests Na 158 Pertinent Medications Reviewed Height 5 ft 8 in Weight 72.575 kg [place] Body Weight (kg) 70.00 BMI 24.3 Subjective/Other Information Consulted for TF recommendation. Screened for difficulty chewing and skin risk. Mnior 12 points. Pt on vent. During rounds MD ordered water flush of 250 mls q 4 hrs to address hypernatremia. Burn Absent Trauma Absent #1 Nutrition Diagnosis Inadequate oral intake Etiology on vent As Evidenced by Signs and Symptoms NPO status Is patient on ventilator? Yes Is Patient Ambulatory and/or Out of Bed No REE-([facility]-confined to bed) [phone] Calculation Used for Recommendations [facility] Additional Notes Protein Needs: 87-145g (1.2-2g /kg) Fluid Needs: 1 ml/kcal Nutrition Intervention Nutrition Support: Vital 1.2 at 60 ml/hr. Water flush of 250 mls q 4 hrs per MD until hypernatremia resolves Water flush of 100 mls q 4 hrs once hypernatremia resolves. Kcal 1,728 Protein (gm) 108 Fiber (gm) 5 Goal #1 TF tolerance Goal #2 Meet at least 80% of calorie and protein needs via TF Anticipated Discharge Needs: TF Follow-Up By: 08/15/18 Additional Comments Follow for new TF, Na lab
--- NOTE | 2018-08-15 13:29 | Progress Note ---
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 Objective - Vital Sign Vital Signs - 12hr 08/15/18 08/15/18 08/15/18 01:30 01:41 01:51 Temperature Pulse Rate 70 70 70 Respiratory 30 H 33 H 32 H Rate Blood Pressure 94/49 99/48 91/47 O2 Sat by Pulse 100 100 100 Oximetry 08/15/18 08/15/18 08/15/18 02:00 02:11 02:21 Temperature Pulse Rate 69 71 70 Respiratory 31 H 28 H 33 H Rate Blood Pressure 97/48 97/48 96/47 O2 Sat by Pulse 100 100 100 Oximetry 08/15/18 08/15/18 08/15/18 02:30 02:41 02:51 Temperature Pulse Rate 70 70 69 Respiratory 28 H 33 H 32 H Rate Blood Pressure 94/47 94/47 93/49 O2 Sat by Pulse 100 100 100 Oximetry 08/15/18 08/15/18 08/15/18 03:00 03:11 03:13 Temperature 98.4 F Pulse Rate 69 68 Respiratory 32 H 29 H Rate Blood Pressure 93/49 93/49 O2 Sat by Pulse 100 100 Oximetry 08/15/18 08/15/18 08/15/18 03:21 03:30 03:41 Temperature Pulse Rate 69 69 68 Respiratory 28 H 28 H 26 H Rate Blood Pressure 97/48 95/47 97/48 O2 Sat by Pulse 100 100 100 Oximetry 08/15/18 08/15/18 08/15/18 03:51 04:00 04:11 Temperature Pulse Rate 68 68 67 Respiratory 29 H 26 H 24 Rate Blood Pressure 95/49 97/48 95/47 O2 Sat by Pulse 100 100 100 Oximetry 08/15/18 08/15/18 08/15/18 04:21 04:30 04:41 Temperature Pulse Rate 67 67 66 Respiratory 30 H 26 H 26 H Rate Blood Pressure 101/48 95/49 97/48 O2 Sat by Pulse 100 100 100 Oximetry 08/15/18 08/15/18 08/15/18 04:51 05:00 05:11 Temperature Pulse Rate 69 67 66 Respiratory 30 H 32 H 29 H Rate Blood Pressure 96/49 92/49 92/49 O2 Sat by Pulse 100 100 100 Oximetry 08/15/18 08/15/18 08/15/18 05:21 05:25 05:30 Temperature Pulse Rate 65 67 66 Respiratory 26 H 27 H Rate Blood Pressure 99/47 99/47 103/46 O2 Sat by Pulse 100 100 100 Oximetry 08/15/18 08/15/18 08/15/18 05:41 05:51 06:00 Temperature Pulse Rate 65 65 65 Respiratory 25 H 26 H 28 H Rate Blood Pressure 103/46 98/46 95/47 O2 Sat by Pulse 100 100 100 Oximetry 08/15/18 08/15/18 08/15/18 06:11 06:21 06:30 Temperature Pulse Rate 67 66 66 Respiratory 26 H 27 H 26 H Rate Blood Pressure 95/47 96/50 95/47 O2 Sat by Pulse 100 100 100 Oximetry 08/15/18 08/15/18 08/15/18 06:41 06:51 07:00 Temperature Pulse Rate 65 67 66 Respiratory 31 H 30 H 29 H Rate Blood Pressure 95/47 94/47 97/49 O2 Sat by Pulse 95 100 100 Oximetry 08/15/18 08/15/18 08/15/18 07:11 07:21 07:30 Temperature Pulse Rate 67 66 67 Respiratory 32 H 30 H 25 H Rate Blood Pressure 97/49 96/47 96/44 O2 Sat by Pulse 100 100 100 Oximetry 08/15/18 08/15/18 08/15/18 07:41 07:51 08:00 Temperature 97.5 F L Pulse Rate 68 67 67 Respiratory 24 28 H 26 H Rate Blood Pressure 96/44 105/48 98/48 O2 Sat by Pulse 97 99 98 Oximetry 08/15/18 08/15/18 08/15/18 08:11 08:21 08:30 Temperature Pulse Rate 67 67 67 Respiratory 30 H 28 H 30 H Rate Blood Pressure 98/48 102/49 97/47 O2 Sat by Pulse 99 100 99 Oximetry 08/15/1808/15/08/15/18 08:31 08:41 08:51 Temperature Pulse Rate 66 66 66 Respiratory 24 19 Rate Blood Pressure 97/47 97/47 108/50 O2 Sat by Pulse 100 100 100 Oximetry 05/18/19 08/15/18 08/15/18 09:00 09:11 09:21 Temperature Pulse Rate 67 67 67 Respiratory 19 19 24 Rate Blood Pressure 108/50 108/50 105/52 O2 Sat by Pulse 100 100 100 Oximetry 08/15/18 08/15/18 08/15/18 09:30 09:41 09:51 Temperature Pulse Rate 67 67 67 Respiratory 28 H 16 16 Rate Blood Pressure 107/50 107/50 108/49 O2 Sat by Pulse 100 100 100 Oximetry 08/15/18 08/15/18 08/15/18 10:00 10:11 10:21 Temperature Pulse Rate 67 67 68 Respiratory 26 H 20 18 Rate Blood Pressure 110/49 110/49 108/50 O2 Sat by Pulse 100 100 100 Oximetry 08/15/18 08/15/18 08/15/18 10:30 10:41 10:51 Temperature Pulse Rate 67 68 67 Respiratory 20 30 H 29 H Rate Blood Pressure 113/53 113/53 108/50 O2 Sat by Pulse 100 100 100 Oximetry 08/15/18 08/15/18 08/15/18 11:00 11:11 11:21 Temperature Pulse Rate 68 68 68 Respiratory 26 H 29 H 20 Rate Blood Pressure 108/53 108/53 109/49 O2 Sat by Pulse 100 100 100 Oximetry 08/15/18 08/15/18 08/15/18 11:30 11:41 11:51 Temperature Pulse Rate 70 69 67 Respiratory 31 H 27 H 20 Rate Blood Pressure 108/50 108/50 109/49 O2 Sat by Pulse 100 100 100 Oximetry 08/15/18 08/15/18 12:00 12:50 Temperature 97.3 F L Pulse Rate 69 70 Respiratory 30 H Rate Blood Pressure 109/52 108/51 O2 Sat by Pulse 100 100 Oximetry - Laboratory Findings CBC and BMP: 08/15/18 04:05 08/15/18 04:05 Abnormal Lab Findings: Abnormal Labs 08/12/18 08/12/18 08/12/18 21:44 21:44 21:44 WBC 15.5 H RBC 3.12 L Hgb 8.8 L Hct 28.9 L MCHC 31 L RDW 19.5 H [place] # Seg Neutrophils % Lymphocytes % (Manual) 48.0 H Seg Neutrophils # Lymphocytes # (Manual) 7.4 H PT 17.8 H INR 1.37 H APTT D-Dimer Heparin Anti-Xa Level POC ABG pH POC ABG pCO2 POC ABG pO2 Sodium 159 H Potassium Chloride 118.5 H BUN 34 H Creatinine Glucose 161 H POC Glucose Lactic Acid Calcium Magnesium AST Alkaline Phosphatase Total Creatine Kinase CK-MB (CK-2) Troponin T 0.105 H* C-Reactive Protein Total Protein Albumin Cholesterol LDL Cholesterol Direct HDL Cholesterol Urine WBC (Auto) Urine Creatinine Urine Total Protein 08/13/18 08/13/18 08/13/18 00:32 00:47 00:47 WBC RBC Hgb 9.2 L Hct 29.6 L MCHC RDW [place] # Seg Neutrophils % Lymphocytes % (Manual) Seg Neutrophils # Lymphocytes # (Manual) PT 16.5 H INR 1.25 H APTT 37.3 H D-Dimer Heparin Anti-Xa Level POC ABG pH POC ABG pCO2 POC ABG pO2 Sodium Potassium Chloride BUN Creatinine Glucose POC Glucose Lactic Acid Calcium Magnesium AST Alkaline Phosphatase Total Creatine Kinase 211 H CK-MB (CK-2) 7.7 H Troponin T 0.169 H* D C-Reactive Protein Total Protein Albumin Cholesterol 46 L LDL Cholesterol Direct 17 L HDL Cholesterol 6 L Urine WBC (Auto) Urine Creatinine Urine Total Protein 08/13/18 08/13/18 08/13/18 00:50 02:25 05:34 WBC RBC Hgb Hct MCHC RDW [place] # Seg Neutrophils % Lymphocytes % (Manual) Seg Neutrophils # Lymphocytes # (Manual) PT INR APTT D-Dimer Heparin Anti-Xa Level POC ABG pH 7.503 H POC ABG pCO2 POC ABG pO2 253 H Sodium Potassium Chloride BUN Creatinine Glucose POC Glucose Lactic Acid Calcium Magnesium AST Alkaline Phosphatase Total Creatine Kinase 311 H CK-MB (CK-2) 10.4 H Troponin T 0.283 H* D C-Reactive Protein Total Protein Albumin Cholesterol LDL Cholesterol Direct HDL Cholesterol Urine WBC (Auto) > 182.0 H Urine Creatinine Urine Total Protein 08/13/18 08/13/18 08/13/18 06:35 10:10 10:10 WBC RBC Hgb Hct MCHC RDW [place] # Seg Neutrophils % Lymphocytes % (Manual) Seg Neutrophils # Lymphocytes # (Manual) PT INR APTT D-Dimer Heparin Anti-Xa Level POC ABG pH 7.554 H POC ABG pCO2 33.5 L POC ABG pO2 220 H Sodium 158 H Potassium Chloride 117.1 H BUN 53 H Creatinine 2.0 H Glucose 247 H POC Glucose Lactic Acid Calcium 8.2 L Magnesium AST Alkaline Phosphatase Total Creatine Kinase 309 H CK-MB (CK-2) 4.1 H Troponin T 0.470 H* D C-Reactive Protein Total Protein Albumin Cholesterol LDL Cholesterol Direct HDL Cholesterol Urine WBC (Auto) Urine Creatinine Urine Total Protein 08/13/18 08/13/18 08/13/18 12:53 12:53 17:55 WBC RBC Hgb Hct MCHC RDW [place] # Seg Neutrophils % Lymphocytes % (Manual) Seg Neutrophils # Lymphocytes # (Manual) PT INR APTT D-Dimer Heparin Anti-Xa Level POC ABG pH POC ABG pCO2 POC ABG pO2 Sodium Potassium Chloride BUN Creatinine Glucose POC Glucose 308 H Lactic Acid 2.80 H* Calcium Magnesium 2.50 H AST Alkaline Phosphatase Total Creatine Kinase CK-MB (CK-2) Troponin T C-Reactive Protein 16.90 H Total Protein Albumin Cholesterol LDL Cholesterol Direct HDL Cholesterol Urine WBC (Auto) Urine Creatinine Urine Total Protein 08/13/18 08/13/18 08/13/18 20:07 21:16 23:17 WBC RBC Hgb Hct MCHC RDW [place] # Seg Neutrophils % Lymphocytes % (Manual) Seg Neutrophils # Lymphocytes # (Manual) PT INR APTT D-Dimer 2742.50 H Heparin Anti-Xa Level POC ABG pH 7.483 H POC ABG pCO2 30.8 L POC ABG pO2 150 H Sodium Potassium Chloride BUN Creatinine Glucose POC Glucose 245 H Lactic Acid Calcium Magnesium AST Alkaline Phosphatase Total Creatine Kinase CK-MB (CK-2) Troponin T C-Reactive Protein Total Protein Albumin Cholesterol LDL Cholesterol Direct HDL Cholesterol Urine WBC (Auto) Urine Creatinine Urine Total Protein 08/14/18 08/14/18 08/14/18 04:03 04:03 04:56 WBC 18.2 H RBC 2.62 L Hgb 7.3 L Hct 24.5 L MCHC RDW 18.9 H [place] # 1.2 H Seg Neutrophils % 79.4 H Lymphocytes % (Manual) Seg Neutrophils # 14.5 H Lymphocytes # (Manual) PT INR APTT D-Dimer Heparin Anti-Xa Level POC ABG pH POC ABG pCO2 33.5 L POC ABG pO2 153 H Sodium 152 H Potassium 3.4 L Chloride 113.8 H BUN 72 H Creatinine 2.7 H Glucose 239 H POC Glucose Lactic Acid Calcium 7.6 L Magnesium AST 50 H Alkaline Phosphatase 219 H Total Creatine Kinase CK-MB (CK-2) Troponin T 0.409 H* C-Reactive Protein Total Protein 6.2 L Albumin 1.9 L Cholesterol LDL Cholesterol Direct HDL Cholesterol Urine WBC (Auto) Urine Creatinine Urine Total Protein 08/14/18 08/14/18 08/14/18 05:18 13:38 15:35 WBC RBC Hgb Hct MCHC RDW [place] # Seg Neutrophils % Lymphocytes % (Manual) Seg Neutrophils # Lymphocytes # (Manual) PT INR APTT D-Dimer Heparin Anti-Xa Level POC ABG pH POC ABG pCO2 POC ABG pO2 Sodium 150 H Potassium 3.2 L Chloride 114.5 H BUN 69 H Creatinine 2.3 H Glucose 247 H POC Glucose 242 H 296 H Lactic Acid Calcium 7.2 L Magnesium AST Alkaline Phosphatase Total Creatine Kinase CK-MB (CK-2) Troponin T C-Reactive Protein Total Protein Albumin Cholesterol LDL Cholesterol Direct HDL Cholesterol Urine WBC (Auto) Urine Creatinine Urine Total Protein 08/14/18 08/14/18 08/14/18 17:01 17:20 23:47 WBC RBC Hgb Hct MCHC RDW [place] # Seg Neutrophils % Lymphocytes % (Manual) Seg Neutrophils # Lymphocytes # (Manual) PT INR APTT D-Dimer Heparin Anti-Xa Level POC ABG pH POC ABG pCO2 POC ABG pO2 Sodium Potassium Chloride BUN Creatinine Glucose POC Glucose 261 H 280 H Lactic Acid Calcium Magnesium AST Alkaline Phosphatase Total Creatine Kinase CK-MB (CK-2) Troponin T C-Reactive Protein Total Protein Albumin Cholesterol LDL Cholesterol Direct HDL Cholesterol Urine WBC (Auto) Urine Creatinine 60.9 H Urine Total Protein 64 H 08/15/18 08/15/18 08/15/18 04:05 04:05 04:05 WBC RBC Hgb 6.3 L Hct 19.7 L* MCHC RDW [place] # Seg Neutrophils % Lymphocytes % (Manual) Seg Neutrophils # Lymphocytes # (Manual) PT INR APTT D-Dimer Heparin Anti-Xa Level 0.17 L POC ABG pH POC ABG pCO2 POC ABG pO2 Sodium 146 H Potassium 3.0 L Chloride 110.6 H BUN 64 H Creatinine 2.2 H Glucose 231 H POC Glucose Lactic Acid Calcium 7.1 L Magnesium AST Alkaline Phosphatase Total Creatine Kinase CK-MB (CK-2) Troponin T C-Reactive Protein Total Protein Albumin Cholesterol LDL Cholesterol Direct HDL Cholesterol Urine WBC (Auto) Urine Creatinine Urine Total Protein 08/15/18 08/15/18 08/15/18 05:21 05:26 06:35 WBC RBC Hgb Hct MCHC RDW [place] # Seg Neutrophils % Lymphocytes % (Manual) Seg Neutrophils # Lymphocytes # (Manual) PT INR APTT 79.0 H* D-Dimer Heparin Anti-Xa Level POC ABG pH 7.494 H POC ABG pCO2 POC ABG pO2 155 H Sodium Potassium Chloride BUN Creatinine Glucose POC Glucose 271 H Lactic Acid Calcium Magnesium AST Alkaline Phosphatase Total Creatine Kinase CK-MB (CK-2) Troponin T C-Reactive Protein Total Protein Albumin Cholesterol LDL Cholesterol Direct HDL Cholesterol Urine WBC (Auto) Urine Creatinine Urine Total Protein 08/15/18 12:10 WBC RBC Hgb Hct MCHC RDW [place] # Seg Neutrophils % Lymphocytes % (Manual) Seg Neutrophils # Lymphocytes # (Manual) PT INR APTT D-Dimer Heparin Anti-Xa Level POC ABG pH POC ABG pCO2 POC ABG pO2 Sodium Potassium Chloride BUN Creatinine Glucose POC Glucose 301 H Lactic Acid Calcium Magnesium AST Alkaline Phosphatase Total Creatine Kinase CK-MB (CK-2) Troponin T C-Reactive Protein Total Protein Albumin Cholesterol LDL Cholesterol Direct HDL Cholesterol Urine WBC (Auto) Urine Creatinine Urine Total Protein
--- NOTE | 2018-08-15 14:49 | Progress Note ---
Assessment and Plan - Patient Problems (1) MAYLIN (acute kidney injury) Current Visit: Yes Status: Acute Plan to address problem: Likely pre-renal injury vs ischemic ATN in the setting of cardiac arrest. Renal function remains stable. Continue current supportive care/management. Avoid nephrotoxins, maintain MAP >65mmHg. (2) Hypokalemia Current Visit: Yes Status: Acute Plan to address problem: Replete per protocol. (3) Acute and chronic respiratory failure Current Visit: Yes Status: Acute Qualifiers: Respiratory failure complication: hypoxia Qualified Code(s): J96.21 - Acute and chronic respiratory failure with hypoxia Plan to address problem: Management per primary attending/pulmonology. (4) Hypernatremia Current Visit: Yes Status: Acute Plan to address problem: Continue with current repletion with D5 1/2NS @75cc/hr as response is noted. Will monitor. (5) Cardiac arrest Current Visit: Yes Status: Acute Plan to address problem: Off pressors at this time. Remains intubated, unresponsive off sedation. Further recommendations per cardiology. (6) Type 2 diabetes mellitus without complications Current Visit: Yes Status: Acute Plan to address problem: DM management per primary attending. Subjective Date of service: 08/15/18 Principal diagnosis: Acute hypoxemic resp failure; S/P cardiac arrest; Seizures; DM II; H/O CVA Interval history: No acute changes overnight. Patient just returned from brain flow study. Renal function stable. Did receive dose of lasix this morning, per nursing staff 400 cc UOP during the day shift today. He remains intubated. Unresponsive off sedation since this morning. Objective - Vital Signs Vital signs: Vital Signs - 12hr 08/15/18 08/15/18 08/15/18 02:51 03:00 03:11 Temperature Pulse Rate 69 69 68 Respiratory 32 H 32 H 29 H Rate Blood Pressure 93/49 93/49 93/49 O2 Sat by Pulse 100 100 100 Oximetry 08/15/18 08/15/18 08/15/18 03:13 03:21 03:30 Temperature 98.4 F Pulse Rate 69 69 Respiratory 28 H 28 H Rate Blood Pressure 97/48 95/47 O2 Sat by Pulse 100 100 Oximetry 08/15/18 08/15/18 08/15/18 03:41 03:51 04:00 Temperature Pulse Rate 68 68 68 Respiratory 26 H 29 H 26 H Rate Blood Pressure 97/48 95/49 97/48 O2 Sat by Pulse 100 100 100 Oximetry 08/15/18 08/15/18 08/15/18 04:11 04:21 04:30 Temperature Pulse Rate 67 67 67 Respiratory 24 30 H 26 H Rate Blood Pressure 95/47 101/48 95/49 O2 Sat by Pulse 100 100 100 Oximetry 08/15/18 08/15/18 08/15/18 04:41 04:51 05:00 Temperature Pulse Rate 66 69 67 Respiratory 26 H 30 H 32 H Rate Blood Pressure 97/48 96/49 92/49 O2 Sat by Pulse 100 100 100 Oximetry 08/15/18 08/15/18 08/15/18 05:11 05:21 05:25 Temperature Pulse Rate 66 65 67 Respiratory 29 H 26 H Rate Blood Pressure 92/49 99/47 99/47 O2 Sat by Pulse 100 100 100 Oximetry 08/15/18 08/15/18 08/15/18 05:30 05:41 05:51 Temperature Pulse Rate 66 65 65 Respiratory 27 H 25 H 26 H Rate Blood Pressure 103/46 103/46 98/46 O2 Sat by Pulse 100 100 100 Oximetry 08/15/18 08/15/18 08/15/18 06:00 06:11 06:21 Temperature Pulse Rate 65 67 66 Respiratory 28 H 26 H 27 H Rate Blood Pressure 95/47 95/47 96/50 O2 Sat by Pulse 100 100 100 Oximetry 08/15/18 08/15/18 08/15/18 06:30 06:41 06:51 Temperature Pulse Rate 66 65 67 Respiratory 26 H 31 H 30 H Rate Blood Pressure 95/47 95/47 94/47 O2 Sat by Pulse 100 95 100 Oximetry 08/15/18 08/15/18 08/15/18 07:00 07:11 07:21 Temperature Pulse Rate 66 67 66 Respiratory 29 H 32 H 30 H Rate Blood Pressure 97/49 97/49 96/47 O2 Sat by Pulse 100 100 100 Oximetry 08/15/18 08/15/18 08/15/18 07:30 07:41 07:51 Temperature Pulse Rate 67 68 67 Respiratory 25 H 24 28 H Rate Blood Pressure 96/44 96/44 105/48 O2 Sat by Pulse 100 97 99 Oximetry 08/15/18 08/15/18 08/15/18 08:00 08:11 08:21 Temperature 97.5 F L Pulse Rate 67 67 67 Respiratory 26 H 30 H 28 H Rate Blood Pressure 98/48 98/48 102/49 O2 Sat by Pulse 98 99 100 Oximetry 08/15/18 08/15/18 08/15/18 08:30 08:31 08:41 Temperature Pulse Rate 67 66 66 Respiratory 30 H 24 Rate Blood Pressure 97/47 97/47 97/47 O2 Sat by Pulse 99 100 100 Oximetry 08/15/18 08/15/18 08/15/18 08:51 09:00 09:11 Temperature Pulse Rate 66 67 67 Respiratory 19 19 19 Rate Blood Pressure 108/50 108/50 108/50 O2 Sat by Pulse 100 100 100 Oximetry 08/15/18 08/15/18 08/15/18 09:21 09:30 09:41 Temperature Pulse Rate 67 67 67 Respiratory 24 28 H 16 Rate Blood Pressure 105/52 107/50 107/50 O2 Sat by Pulse 100 100 100 Oximetry 08/15/18 08/15/18 08/15/18 09:51 10:00 10:11 Temperature Pulse Rate 67 67 67 Respiratory 16 26 H 20 Rate Blood Pressure 108/49 110/49 110/49 O2 Sat by Pulse 100 100 100 Oximetry 08/15/18 08/15/18 08/15/18 10:21 10:30 10:41 Temperature Pulse Rate 68 67 68 Respiratory 18 20 30 H Rate Blood Pressure 108/50 113/53 113/53 O2 Sat by Pulse 100 100 100 Oximetry 08/15/18 08/15/18 08/15/18 10:51 11:00 11:11 Temperature Pulse Rate 67 68 68 Respiratory 29 H 26 H 29 H Rate Blood Pressure 108/50 108/53 108/53 O2 Sat by Pulse 100 100 100 Oximetry 08/15/18 08/15/18 08/15/18 11:21 11:30 11:41 Temperature Pulse Rate 68 70 69 Respiratory 20 31 H 27 H Rate Blood Pressure 109/49 108/50 108/50 O2 Sat by Pulse 100 100 100 Oximetry 08/15/18 08/15/18 08/15/18 11:51 12:00 12:50 Temperature 97.3 F L Pulse Rate 67 69 70 Respiratory 20 30 H Rate Blood Pressure 109/49 109/52 108/51 O2 Sat by Pulse 100 100 100 Oximetry - General Appearance General appearance: cachectic, chronically ill, intubated, frail EENT: ATNC Neck: no JVD, no thyromegaly Respiratory: Present: Decreased Breath Sounds Cardiology: regular, S1S2 Gastrointestinal: normal, normoactive bowel sounds Integumentary: no rash Neurologic: other (unresponsive off sedation ) - Lab 08/15/18 04:05 08/15/18 04:05 Most recent lab results Calcium 7.1 mg/dL (8.4-10.2) L 08/15/18 04:05 Phosphorus 3.90 mg/dL (2.5-4.5) 08/15/18 04:05 Magnesium 2.20 mg/dL (1.7-2.3) 08/15/18 04:05 60.9 mg/dL (0.1-20.0) H 08/14/18 17:20 32 mmol/L 08/14/18 17:20 64 mg/dL (5-11.8) H 08/14/18 17:20 - Imaging Chest x-ray: report reviewed Kidney/bladder ultrasound: pending - Allied health notes Allied health notes reviewed: nursing Medications & Allergies - Medications Allergies/Adverse Reactions: Allergies No Known Allergies Allergy (Verified 08/12/18 21:47) Active Medications: Generic Name Dose Route Start Last Admin Trade Name Freq PRN Reason Stop Dose Admin Acetaminophen 650 mg 08/13/18 11:40 08/13/18 16:09 Tylenol PO 650 mg Q6H PRN Administration Fever >101 Lipase/Protease/Amylase 1 each 08/13/18 15:55 Pancregarrett Alas 10,500 Unit FEEDTUBE PRN PRN For Clogged Feeding Tube Aspirin 300 mg 08/13/18 12:00 08/15/18 10:55 Aspirin [place] 300 mg QDAY LENCHO Administration Atorvastatin Calcium 40 mg 08/14/18 22:00 08/14/18 21:35 Lipitor PO 40 mg QHS LENCHO Administration Dextrose 50 ml 08/13/18 01:34 D50w (25gm) Syringe IV PRN PRN Hypoglycemia Famotidine 20 mg 08/14/18 10:00 08/15/18 10:55 Pepcid IV 20 mg DAILY LENCHO Administration Hydrophilic Ointment 1 applic 08/13/18 12:21 Vaseline Lip Therapy TP Q2HR PRN Dry Lips Heparin Sodium/Sodium Chloride 25,000 unit in 500 mls @ 20 mls/hr 08/13/18 01:00 08/15/18 06:00 Heparin/ 0.45% Nacl-25,000 Unit/500 Ml IV 0 units/hr TITRATE LENCHO 0 mls/hr Titration Protocol 1,000 UNITS/HR Norepinephrine 4 mg in 250 mls @ 7.5 mls/hr 08/12/18 21:00 08/14/18 11:06 Levophed Drip 4 Mg/Ns 250 Ml IV 0 mcg/min TITR LENCHO 0 mls/hr Titration Protocol 2 MCG/MIN Dextrose 1,000 mls @ 100 mls/hr 08/13/18 03:00 08/15/18 02:28 D5w IV 75 mls/hr DIRECT LENCHO Administration Propofol 1,000 mg in 100 mls @ 2.177 mls/hr 08/13/18 13:00 08/14/18 16:00 Diprivan 10 Mg/Ml IV 5 mcg/kg/min TITR LENCHO 2.177 mls/hr Titration Protocol 5 MCG/KG/MIN Piperacillin Sod/Tazobactam Sod 2.25 gm in 50 mls @ 100 mls/hr 08/14/18 12:00 08/15/18 11:59 Zosyn/Ns 2.25 Gm/50ml IV 100 mls/hr Q6HR LENCHO Administration Fentanyl Citrate 2,000 mcg in 100 mls @ 3.629 mls/hr 08/14/18 13:00 Fentanyl Drip Premix IV TITR LENCHO Protocol 1 MCG/KG/HR Insulin Glargine 15 units 08/15/18 12:18 Lantus SUB-Q DAILY [facility] Insulin Human Lispro 0 unit 08/13/18 06:00 08/15/18 12:28 Humalog SUB-Q 6 unit Q6HR [facility] Administration Protocol Levetiracetam 1,000 mg 08/13/18 15:00 08/15/18 10:57 Keppra PO 1,000 mg BID LENCHO Administration Multi-Ingred Cream/Lotion/Oil/Oint 1 applic 08/13/18 12:21 08/15/18 04:26 Artificial Tears Ophth Oint OU 1 applic Q4HR PRN Administration Dry Eye(s) Ondansetron HCl 4 mg 08/13/18 01:34 Zofran IV Q8H PRN Nausea And Vomiting Simple Syrup 15 ml 08/13/18 15:55 Simple Syrup FEEDTUBE PRN PRN Hypoglycemia Simple Syrup 30 ml 08/13/18 15:55 Simple Syrup FEEDTUBE PRN PRN Hypoglycemia Sodium Bicarbonate 325 mg 08/13/18 15:55 Sodium Bicarbonate FEEDTUBE PRN PRN For Clogged Feeding Tube Sodium Chloride 10 ml 08/13/18 10:00 08/15/18 10:56 Sodium Chloride Flush Syringe 10 Ml IV 10 ml BID LENCHO Administration Sodium Chloride 10 ml 08/13/18 01:34 Sodium Chloride Flush Syringe 10 Ml IV PRN PRN LINE FLUSH
[2018-08-16] MEDS: HEPARIN/ 0.45% NACL-25,000 UNIT/500 ML 25,000 UNIT/500 ML BAG IV SCH ×2 (02:22→21:15)
[2018-08-16] MEDS: ARTIFICIAL TEARS OPHTH OINT OU PRN (02:24)
--- NOTE | 2018-08-16 02:46 | XRay Report ---
PROCEDURE: XR CHEST 1V AP TECHNIQUE: Chest radiograph single view. HISTORY: follow up respiratory failure COMPARISONS: None . FINDINGS: Heart: Normal. Mediastinum/Vessels: Normal. Lungs/Pleural space: There is suboptimal inspiration. There are no acute infiltrates. There is no pl eural effusion or pneumothorax.. Bony thorax: No acute osseous abnormality. Life support devices: ET tube is in the mid trachea. There is a right-sided PICC line. The tip is in the superior vena cava.. IMPRESSION: Heart size is normal.. There is suboptimal inspiration. There are no acute infiltrates. There is no pleural effusion or pneu mothorax.. ET tube is in the mid trachea. There is a right-sided PICC line. The tip is in the superior vena cava .. This document is electronically signed by Juan Redd MD., Aug 16 2018 02:44:00 AM ET
[2018-08-16] MEDS: HumaLOG SUB-Q SCH ×4 (06:04→17:28)
[2018-08-16] MEDS: D5W 1,000 ML IV SCH (06:12)
[2018-08-16] MEDS: ZOSYN/NS 2.25 GM/50ML 2.25 GM/50 ML BAG IV SCH ×4 (06:13→17:26)
[2018-08-16] MEDS: SODIUM CHLORIDE FLUSH SYRINGE 10 ML IV SCH ×2 (08:42→10:51)
--- NOTE | 2018-08-16 09:59 | Progress Note ---
Subjective Date of service: 08/16/18 Principal diagnosis: Acute hypoxemic resp failure; S/P cardiac arrest; Seizures; DM II; H/O CVA Interval history: I did check the blood flow study for the nuclear medicine I don't feel comfortable giving formal reading but I did review the images once formal report supplied I will confirm the reading thanks Objective - Vital Sign Vital Signs - 12hr 08/15/18 08/15/18 08/15/18 22:00 22:11 22:21 Temperature Pulse Rate 69 69 68 Respiratory 24 25 H 29 H Rate Blood Pressure 117/54 112/50 112/50 O2 Sat by Pulse 100 100 100 Oximetry 08/15/18 08/15/18 08/15/18 22:30 22:41 22:51 Temperature Pulse Rate 68 70 68 Respiratory 26 H 28 H 21 Rate Blood Pressure 124/49 117/54 117/54 O2 Sat by Pulse 100 100 100 Oximetry 08/15/18 08/15/18 08/15/18 23:00 23:11 23:16 Temperature Pulse Rate 68 70 69 Respiratory 19 27 H 29 H Rate Blood Pressure 113/46 113/46 113/46 O2 Sat by Pulse 100 100 100 Oximetry 08/15/18 08/15/18 08/15/18 23:20 23:30 23:31 Temperature Pulse Rate 69 69 69 Respiratory 26 H 27 H 28 H Rate Blood Pressure 113/46 113/46 O2 Sat by Pulse 100 100 100 Oximetry 08/15/18 08/15/18 08/15/18 23:41 23:51 23:57 Temperature 98.7 F Pulse Rate 70 70 Respiratory 24 23 Rate Blood Pressure 107/50 107/50 O2 Sat by Pulse 100 100 Oximetry 08/16/18 08/16/18 08/16/18 00:00 00:11 00:21 Temperature Pulse Rate 71 70 70 Respiratory 22 24 24 Rate Blood Pressure 120/51 120/51 120/51 O2 Sat by Pulse 99 100 100 Oximetry 08/16/18 08/16/18 08/16/18 00:30 00:41 00:51 Temperature Pulse Rate 70 71 70 Respiratory 26 H 25 H 25 H Rate Blood Pressure 111/49 111/49 120/51 O2 Sat by Pulse 99 100 100 Oximetry 08/16/18 08/16/18 08/16/18 01:00 01:11 01:21 Temperature Pulse Rate 71 70 71 Respiratory 25 H 23 23 Rate Blood Pressure 112/52 112/52 112/52 O2 Sat by Pulse 100 100 100 Oximetry 08/16/18 08/16/18 08/16/18 01:30 01:41 01:51 Temperature Pulse Rate 70 70 73 Respiratory 25 H 23 24 Rate Blood Pressure 121/52 121/52 112/52 O2 Sat by Pulse 100 100 100 Oximetry 08/16/18 08/16/18 08/16/18 02:00 02:11 02:21 Temperature Pulse Rate 71 72 70 Respiratory 23 28 H 25 H Rate Blood Pressure 121/52 123/54 123/54 O2 Sat by Pulse 100 100 100 Oximetry 08/16/18 08/16/18 08/16/18 02:30 02:41 02:51 Temperature Pulse Rate 68 68 69 Respiratory 25 H 26 H 24 Rate Blood Pressure 116/55 116/55 123/54 O2 Sat by Pulse 100 100 Oximetry 08/16/18 08/16/18 08/16/18 03:00 03:11 03:21 Temperature Pulse Rate 67 67 68 Respiratory 25 H 25 H 22 Rate Blood Pressure 125/55 125/55 116/55 O2 Sat by Pulse 100 100 Oximetry 08/16/18 08/16/18 08/16/18 03:30 03:41 03:49 Temperature 98.9 F Pulse Rate 68 68 Respiratory 25 H 25 H Rate Blood Pressure 124/56 124/56 O2 Sat by Pulse 100 Oximetry 08/16/18 08/16/18 08/16/18 03:51 04:00 04:08 Temperature Pulse Rate 69 70 70 Respiratory 26 H 25 H Rate Blood Pressure 124/56 116/52 116/52 O2 Sat by Pulse 100 100 95 Oximetry 08/16/18 08/16/18 08/16/18 04:11 04:21 04:30 Temperature Pulse Rate 70 72 70 Respiratory 25 H 25 H 25 H Rate Blood Pressure 116/52 116/52 120/54 O2 Sat by Pulse 100 100 Oximetry 08/16/18 08/16/18 08/16/18 04:41 04:51 05:00 Temperature Pulse Rate 69 69 69 Respiratory 26 H 26 H 24 Rate Blood Pressure 120/54 116/52 121/55 O2 Sat by Pulse 99 99 95 Oximetry 08/16/18 08/16/18 08/16/18 05:11 05:21 05:30 Temperature Pulse Rate 69 68 68 Respiratory 21 24 23 Rate Blood Pressure 121/55 121/55 123/53 O2 Sat by Pulse 99 99 96 Oximetry 08/16/18 08/16/18 08/16/18 05:41 05:51 06:00 Temperature Pulse Rate 69 69 69 Respiratory 24 22 21 Rate Blood Pressure 123/53 123/53 124/51 O2 Sat by Pulse 100 100 96 Oximetry 08/16/18 08/16/18 08/16/18 06:11 08:00 08:41 Temperature 96.9 F L Pulse Rate 68 67 Respiratory 22 Rate Blood Pressure 124/51 121/53 O2 Sat by Pulse 100 100 Oximetry - Laboratory Findings CBC and BMP: 08/15/18 04:05 08/15/18 04:05 Abnormal Lab Findings: Abnormal Labs 08/12/18 08/12/18 08/12/18 21:44 21:44 21:44 WBC 15.5 H RBC 3.12 L Hgb 8.8 L Hct 28.9 L MCHC 31 L RDW 19.5 H [place] # Seg Neutrophils % Lymphocytes % (Manual) 48.0 H Seg Neutrophils # Lymphocytes # (Manual) 7.4 H PT 17.8 H INR 1.37 H APTT D-Dimer Heparin Anti-Xa Level POC ABG pH POC ABG pCO2 POC ABG pO2 Sodium 159 H Potassium Chloride 118.5 H BUN 34 H Creatinine Glucose 161 H POC Glucose Lactic Acid Calcium Magnesium AST Alkaline Phosphatase Total Creatine Kinase CK-MB (CK-2) Troponin T 0.105 H* C-Reactive Protein Total Protein Albumin Cholesterol LDL Cholesterol Direct HDL Cholesterol Urine WBC (Auto) Urine Creatinine Urine Total Protein Crossmatch 08/13/18 08/13/18 08/13/18 00:32 00:47 00:47 WBC RBC Hgb 9.2 L Hct 29.6 L MCHC RDW [place] # Seg Neutrophils % Lymphocytes % (Manual) Seg Neutrophils # Lymphocytes # (Manual) PT 16.5 H INR 1.25 H APTT 37.3 H D-Dimer Heparin Anti-Xa Level POC ABG pH POC ABG pCO2 POC ABG pO2 Sodium Potassium Chloride BUN Creatinine Glucose POC Glucose Lactic Acid Calcium Magnesium AST Alkaline Phosphatase Total Creatine Kinase 211 H CK-MB (CK-2) 7.7 H Troponin T 0.169 H* D C-Reactive Protein Total Protein Albumin Cholesterol 46 L LDL Cholesterol Direct 17 L HDL Cholesterol 6 L Urine WBC (Auto) Urine Creatinine Urine Total Protein Crossmatch 08/13/18 08/13/18 08/13/18 00:50 02:25 05:34 WBC RBC Hgb Hct MCHC RDW [place] # Seg Neutrophils % Lymphocytes % (Manual) Seg Neutrophils # Lymphocytes # (Manual) PT INR APTT D-Dimer Heparin Anti-Xa Level POC ABG pH 7.503 H POC ABG pCO2 POC ABG pO2 253 H Sodium Potassium Chloride BUN Creatinine Glucose POC Glucose Lactic Acid Calcium Magnesium AST Alkaline Phosphatase Total Creatine Kinase 311 H CK-MB (CK-2) 10.4 H Troponin T 0.283 H* D C-Reactive Protein Total Protein Albumin Cholesterol LDL Cholesterol Direct HDL Cholesterol Urine WBC (Auto) > 182.0 H Urine Creatinine Urine Total Protein Crossmatch 08/13/18 08/13/18 08/13/18 06:35 10:10 10:10 WBC RBC Hgb Hct MCHC RDW [place] # Seg Neutrophils % Lymphocytes % (Manual) Seg Neutrophils # Lymphocytes # (Manual) PT INR APTT D-Dimer Heparin Anti-Xa Level POC ABG pH 7.554 H POC ABG pCO2 33.5 L POC ABG pO2 220 H Sodium 158 H Potassium Chloride 117.1 H BUN 53 H Creatinine 2.0 H Glucose 247 H POC Glucose Lactic Acid Calcium 8.2 L Magnesium AST Alkaline Phosphatase Total Creatine Kinase 309 H CK-MB (CK-2) 4.1 H Troponin T 0.470 H* D C-Reactive Protein Total Protein Albumin Cholesterol LDL Cholesterol Direct HDL Cholesterol Urine WBC (Auto) Urine Creatinine Urine Total Protein Crossmatch 08/13/18 08/13/18 08/13/18 12:53 12:53 17:55 WBC RBC Hgb Hct MCHC RDW [place] # Seg Neutrophils % Lymphocytes % (Manual) Seg Neutrophils # Lymphocytes # (Manual) PT INR APTT D-Dimer Heparin Anti-Xa Level POC ABG pH POC ABG pCO2 POC ABG pO2 Sodium Potassium Chloride BUN Creatinine Glucose POC Glucose 308 H Lactic Acid 2.80 H* Calcium Magnesium 2.50 H AST Alkaline Phosphatase Total Creatine Kinase CK-MB (CK-2) Troponin T C-Reactive Protein 16.90 H Total Protein Albumin Cholesterol LDL Cholesterol Direct HDL Cholesterol Urine WBC (Auto) Urine Creatinine Urine Total Protein Crossmatch 08/13/18 08/13/18 08/13/18 20:07 21:16 23:17 WBC RBC Hgb Hct MCHC RDW [place] # Seg Neutrophils % Lymphocytes % (Manual) Seg Neutrophils # Lymphocytes # (Manual) PT INR APTT D-Dimer 2742.50 H Heparin Anti-Xa Level POC ABG pH 7.483 H POC ABG pCO2 30.8 L POC ABG pO2 150 H Sodium Potassium Chloride BUN Creatinine Glucose POC Glucose 245 H Lactic Acid Calcium Magnesium AST Alkaline Phosphatase Total Creatine Kinase CK-MB (CK-2) Troponin T C-Reactive Protein Total Protein Albumin Cholesterol LDL Cholesterol Direct HDL Cholesterol Urine WBC (Auto) Urine Creatinine Urine Total Protein Crossmatch 08/14/18 08/14/18 08/14/18 04:03 04:03 04:56 WBC 18.2 H RBC 2.62 L Hgb 7.3 L Hct 24.5 L MCHC RDW 18.9 H [place] # 1.2 H Seg Neutrophils % 79.4 H Lymphocytes % (Manual) Seg Neutrophils # 14.5 H Lymphocytes # (Manual) PT INR APTT D-Dimer Heparin Anti-Xa Level POC ABG pH POC ABG pCO2 33.5 L POC ABG pO2 153 H Sodium 152 H Potassium 3.4 L Chloride 113.8 H BUN 72 H Creatinine 2.7 H Glucose 239 H POC Glucose Lactic Acid Calcium 7.6 L Magnesium AST 50 H Alkaline Phosphatase 219 H Total Creatine Kinase CK-MB (CK-2) Troponin T 0.409 H* C-Reactive Protein Total Protein 6.2 L Albumin 1.9 L Cholesterol LDL Cholesterol Direct HDL Cholesterol Urine WBC (Auto) Urine Creatinine Urine Total Protein Crossmatch 08/14/18 08/14/18 08/14/18 05:18 13:38 15:35 WBC RBC Hgb Hct MCHC RDW [place] # Seg Neutrophils % Lymphocytes % (Manual) Seg Neutrophils # Lymphocytes # (Manual) PT INR APTT D-Dimer Heparin Anti-Xa Level POC ABG pH POC ABG pCO2 POC ABG pO2 Sodium 150 H Potassium 3.2 L Chloride 114.5 H BUN 69 H Creatinine 2.3 H Glucose 247 H POC Glucose 242 H 296 H Lactic Acid Calcium 7.2 L Magnesium AST Alkaline Phosphatase Total Creatine Kinase CK-MB (CK-2) Troponin T C-Reactive Protein Total Protein Albumin Cholesterol LDL Cholesterol Direct HDL Cholesterol Urine WBC (Auto) Urine Creatinine Urine Total Protein Crossmatch 05/17/19 05/17/19 05/17/19 17:01 17:20 23:47 WBC RBC Hgb Hct MCHC RDW [place] # Seg Neutrophils % Lymphocytes % (Manual) Seg Neutrophils # Lymphocytes # (Manual) PT INR APTT D-Dimer Heparin Anti-Xa Level POC ABG pH POC ABG pCO2 POC ABG pO2 Sodium Potassium Chloride BUN Creatinine Glucose POC Glucose 261 H 280 H Lactic Acid Calcium Magnesium AST Alkaline Phosphatase Total Creatine Kinase CK-MB (CK-2) Troponin T C-Reactive Protein Total Protein Albumin Cholesterol LDL Cholesterol Direct HDL Cholesterol Urine WBC (Auto) Urine Creatinine 60.9 H Urine Total Protein 64 H Crossmatch 08/15/18 08/15/18 08/15/18 04:05 04:05 04:05 WBC RBC Hgb 6.3 L Hct 19.7 L* MCHC RDW [place] # Seg Neutrophils % Lymphocytes % (Manual) Seg Neutrophils # Lymphocytes # (Manual) PT INR APTT D-Dimer Heparin Anti-Xa Level 0.17 L POC ABG pH POC ABG pCO2 POC ABG pO2 Sodium 146 H Potassium 3.0 L Chloride 110.6 H BUN 64 H Creatinine 2.2 H Glucose 231 H POC Glucose Lactic Acid Calcium 7.1 L Magnesium AST Alkaline Phosphatase Total Creatine Kinase CK-MB (CK-2) Troponin T C-Reactive Protein Total Protein Albumin Cholesterol LDL Cholesterol Direct HDL Cholesterol Urine WBC (Auto) Urine Creatinine Urine Total Protein Crossmatch 08/15/18 08/15/18 08/15/18 05:21 05:26 06:35 WBC RBC Hgb Hct MCHC RDW [place] # Seg Neutrophils % Lymphocytes % (Manual) Seg Neutrophils # Lymphocytes # (Manual) PT INR APTT 79.0 H* D-Dimer Heparin Anti-Xa Level POC ABG pH 7.494 H POC ABG pCO2 POC ABG pO2 155 H Sodium Potassium Chloride BUN Creatinine Glucose POC Glucose 271 H Lactic Acid Calcium Magnesium AST Alkaline Phosphatase Total Creatine Kinase CK-MB (CK-2) Troponin T C-Reactive Protein Total Protein Albumin Cholesterol LDL Cholesterol Direct HDL Cholesterol Urine WBC (Auto) Urine Creatinine Urine Total Protein Crossmatch 08/15/18 08/15/18 08/15/18 12:10 15:31 17:27 WBC RBC Hgb Hct MCHC RDW [place] # Seg Neutrophils % Lymphocytes % (Manual) Seg Neutrophils # Lymphocytes # (Manual) PT INR APTT D-Dimer Heparin Anti-Xa Level POC ABG pH POC ABG pCO2 POC ABG pO2 Sodium Potassium Chloride BUN Creatinine Glucose POC Glucose 301 H 287 H Lactic Acid Calcium Magnesium AST Alkaline Phosphatase Total Creatine Kinase CK-MB (CK-2) Troponin T C-Reactive Protein Total Protein Albumin Cholesterol LDL Cholesterol Direct HDL Cholesterol Urine WBC (Auto) Urine Creatinine Urine Total Protein Crossmatch See Detail 08/15/18 08/15/18 08/16/18 21:41 23:45 04:13 WBC RBC Hgb Hct MCHC RDW [place] # Seg Neutrophils % Lymphocytes % (Manual) Seg Neutrophils # Lymphocytes # (Manual) PT INR APTT D-Dimer Heparin Anti-Xa Level 0.19 L POC ABG pH POC ABG pCO2 32.1 L POC ABG pO2 107 H Sodium Potassium Chloride BUN Creatinine Glucose POC Glucose 163 H Lactic Acid Calcium Magnesium AST Alkaline Phosphatase Total Creatine Kinase CK-MB (CK-2) Troponin T C-Reactive Protein Total Protein Albumin Cholesterol LDL Cholesterol Direct HDL Cholesterol Urine WBC (Auto) Urine Creatinine Urine Total Protein Crossmatch 08/16/18 08/16/18 04:50 05:28 WBC RBC Hgb Hct MCHC RDW [place] # Seg Neutrophils % Lymphocytes % (Manual) Seg Neutrophils # Lymphocytes # (Manual) PT INR APTT D-Dimer Heparin Anti-Xa Level 0.19 L POC ABG pH POC ABG pCO2 POC ABG pO2 Sodium Potassium Chloride BUN Creatinine Glucose POC Glucose 141 H Lactic Acid Calcium Magnesium AST Alkaline Phosphatase Total Creatine Kinase CK-MB (CK-2) Troponin T C-Reactive Protein Total Protein Albumin Cholesterol LDL Cholesterol Direct HDL Cholesterol Urine WBC (Auto) Urine Creatinine Urine Total Protein Crossmatch
[2018-08-16] MEDS: KEPPRA PO SCH ×2 (10:46→21:14)
[2018-08-16] MEDS: ASPIRIN PR SCH (10:50)
[2018-08-16] MEDS: PEPCID IV SCH (10:50)
[2018-08-16] MEDS: LANTUS SUB-Q SCH (10:50)
--- NOTE | 2018-08-16 11:01 | Progress Note ---
Subjective Date of service: 08/16/18 Principal diagnosis: Acute hypoxemic resp failure; S/P cardiac arrest; Seizures; DM II; H/O CVA Interval history: detailed neuro exam do not find evidence of brain reactivity absent gag absent corneal pupils are NR and no spontanous movements no reflexes and absense of consciousness... prognosis is nil Objective - Vital Sign Vital Signs - 12hr 08/15/18 08/15/18 08/15/18 23:00 23:11 23:16 Temperature Pulse Rate 68 70 69 Respiratory 19 27 H 29 H Rate Blood Pressure 113/46 113/46 113/46 O2 Sat by Pulse 100 100 100 Oximetry 08/15/18 08/15/18 08/15/18 23:20 23:30 23:31 Temperature Pulse Rate 69 69 69 Respiratory 26 H 27 H 28 H Rate Blood Pressure 113/46 113/46 O2 Sat by Pulse 100 100 100 Oximetry 08/15/18 08/15/18 08/15/18 23:41 23:51 23:57 Temperature 98.7 F Pulse Rate 70 70 Respiratory 24 23 Rate Blood Pressure 107/50 107/50 O2 Sat by Pulse 100 100 Oximetry 08/16/18 08/16/18 08/16/18 00:00 00:11 00:21 Temperature Pulse Rate 71 70 70 Respiratory 22 24 24 Rate Blood Pressure 120/51 120/51 120/51 O2 Sat by Pulse 99 100 100 Oximetry 08/16/18 08/16/18 08/16/18 00:30 00:41 00:51 Temperature Pulse Rate 70 71 70 Respiratory 26 H 25 H 25 H Rate Blood Pressure 111/49 111/49 120/51 O2 Sat by Pulse 99 100 100 Oximetry 08/16/18 08/16/18 08/16/18 01:00 01:11 01:21 Temperature Pulse Rate 71 70 71 Respiratory 25 H 23 23 Rate Blood Pressure 112/52 112/52 112/52 O2 Sat by Pulse 100 100 100 Oximetry 08/16/18 08/16/18 08/16/18 01:30 01:41 01:51 Temperature Pulse Rate 70 70 73 Respiratory 25 H 23 24 Rate Blood Pressure 121/52 121/52 112/52 O2 Sat by Pulse 100 100 100 Oximetry 08/16/18 08/16/18 08/16/18 02:00 02:11 02:21 Temperature Pulse Rate 71 72 70 Respiratory 23 28 H 25 H Rate Blood Pressure 121/52 123/54 123/54 O2 Sat by Pulse 100 100 100 Oximetry 08/16/18 08/16/18 08/16/18 02:30 02:41 02:51 Temperature Pulse Rate 68 68 69 Respiratory 25 H 26 H 24 Rate Blood Pressure 116/55 116/55 123/54 O2 Sat by Pulse 100 100 Oximetry 08/16/18 08/16/18 08/16/18 03:00 03:11 03:21 Temperature Pulse Rate 67 67 68 Respiratory 25 H 25 H 22 Rate Blood Pressure 125/55 125/55 116/55 O2 Sat by Pulse 100 100 Oximetry 08/16/18 08/16/18 08/16/18 03:30 03:41 03:49 Temperature 98.9 F Pulse Rate 68 68 Respiratory 25 H 25 H Rate Blood Pressure 124/56 124/56 O2 Sat by Pulse 100 Oximetry 08/16/18 08/16/18 08/16/18 03:51 04:00 04:08 Temperature Pulse Rate 69 70 70 Respiratory 26 H 25 H Rate Blood Pressure 124/56 116/52 116/52 O2 Sat by Pulse 100 100 95 Oximetry 08/16/18 08/16/18 08/16/18 04:11 04:21 04:30 Temperature Pulse Rate 70 72 70 Respiratory 25 H 25 H 25 H Rate Blood Pressure 116/52 116/52 120/54 O2 Sat by Pulse 100 100 Oximetry 08/16/18 08/16/18 08/16/18 04:41 04:51 05:00 Temperature Pulse Rate 69 69 69 Respiratory 26 H 26 H 24 Rate Blood Pressure 120/54 116/52 121/55 O2 Sat by Pulse 99 99 95 Oximetry 08/16/18 08/16/18 08/16/18 05:11 05:21 05:30 Temperature Pulse Rate 69 68 68 Respiratory 21 24 23 Rate Blood Pressure 121/55 121/55 123/53 O2 Sat by Pulse 99 99 96 Oximetry 08/16/18 08/16/18 08/16/18 05:41 05:51 06:00 Temperature Pulse Rate 69 69 69 Respiratory 24 22 21 Rate Blood Pressure 123/53 123/53 124/51 O2 Sat by Pulse 100 100 96 Oximetry 08/16/18 08/16/18 08/16/18 06:11 08:00 08:41 Temperature 96.9 F L Pulse Rate 68 67 Respiratory 22 Rate Blood Pressure 124/51 121/53 O2 Sat by Pulse 100 100 Oximetry - Laboratory Findings CBC and BMP: 08/15/18 04:05 08/15/18 04:05 Abnormal Lab Findings: Abnormal Labs 08/12/18 08/12/18 08/12/18 21:44 21:44 21:44 WBC 15.5 H RBC 3.12 L Hgb 8.8 L Hct 28.9 L MCHC 31 L RDW 19.5 H Gonzales # Seg Neutrophils % Lymphocytes % (Manual) 48.0 H Seg Neutrophils # Lymphocytes # (Manual) 7.4 H PT 17.8 H INR 1.37 H APTT D-Dimer Heparin Anti-Xa Level POC ABG pH POC ABG pCO2 POC ABG pO2 Sodium 159 H Potassium Chloride 118.5 H BUN 34 H Creatinine Glucose 161 H POC Glucose Lactic Acid Calcium Magnesium AST Alkaline Phosphatase Total Creatine Kinase CK-MB (CK-2) Troponin T 0.105 H* C-Reactive Protein Total Protein Albumin Cholesterol LDL Cholesterol Direct HDL Cholesterol Urine WBC (Auto) Urine Creatinine Urine Total Protein Crossmatch 08/13/18 08/13/18 08/13/18 00:32 00:47 00:47 WBC RBC Hgb 9.2 L Hct 29.6 L MCHC RDW Gonzales # Seg Neutrophils % Lymphocytes % (Manual) Seg Neutrophils # Lymphocytes # (Manual) PT 16.5 H INR 1.25 H APTT 37.3 H D-Dimer Heparin Anti-Xa Level POC ABG pH POC ABG pCO2 POC ABG pO2 Sodium Potassium Chloride BUN Creatinine Glucose POC Glucose Lactic Acid Calcium Magnesium AST Alkaline Phosphatase Total Creatine Kinase 211 H CK-MB (CK-2) 7.7 H Troponin T 0.169 H* D C-Reactive Protein Total Protein Albumin Cholesterol 46 L LDL Cholesterol Direct 17 L HDL Cholesterol 6 L Urine WBC (Auto) Urine Creatinine Urine Total Protein Crossmatch 08/13/18 08/13/18 08/13/18 00:50 02:25 05:34 WBC RBC Hgb Hct MCHC RDW Gonzales # Seg Neutrophils % Lymphocytes % (Manual) Seg Neutrophils # Lymphocytes # (Manual) PT INR APTT D-Dimer Heparin Anti-Xa Level POC ABG pH 7.503 H POC ABG pCO2 POC ABG pO2 253 H Sodium Potassium Chloride BUN Creatinine Glucose POC Glucose Lactic Acid Calcium Magnesium AST Alkaline Phosphatase Total Creatine Kinase 311 H CK-MB (CK-2) 10.4 H Troponin T 0.283 H* D C-Reactive Protein Total Protein Albumin Cholesterol LDL Cholesterol Direct HDL Cholesterol Urine WBC (Auto) > 182.0 H Urine Creatinine Urine Total Protein Crossmatch 08/13/18 08/13/18 08/13/18 06:35 10:10 10:10 WBC RBC Hgb Hct MCHC RDW Gonzales # Seg Neutrophils % Lymphocytes % (Manual) Seg Neutrophils # Lymphocytes # (Manual) PT INR APTT D-Dimer Heparin Anti-Xa Level POC ABG pH 7.554 H POC ABG pCO2 33.5 L POC ABG pO2 220 H Sodium 158 H Potassium Chloride 117.1 H BUN 53 H Creatinine 2.0 H Glucose 247 H POC Glucose Lactic Acid Calcium 8.2 L Magnesium AST Alkaline Phosphatase Total Creatine Kinase 309 H CK-MB (CK-2) 4.1 H Troponin T 0.470 H* D C-Reactive Protein Total Protein Albumin Cholesterol LDL Cholesterol Direct HDL Cholesterol Urine WBC (Auto) Urine Creatinine Urine Total Protein Crossmatch 08/13/18 08/13/18 08/13/18 12:53 12:53 17:55 WBC RBC Hgb Hct MCHC RDW Gonzales # Seg Neutrophils % Lymphocytes % (Manual) Seg Neutrophils # Lymphocytes # (Manual) PT INR APTT D-Dimer Heparin Anti-Xa Level POC ABG pH POC ABG pCO2 POC ABG pO2 Sodium Potassium Chloride BUN Creatinine Glucose POC Glucose 308 H Lactic Acid 2.80 H* Calcium Magnesium 2.50 H AST Alkaline Phosphatase Total Creatine Kinase CK-MB (CK-2) Troponin T C-Reactive Protein 16.90 H Total Protein Albumin Cholesterol LDL Cholesterol Direct HDL Cholesterol Urine WBC (Auto) Urine Creatinine Urine Total Protein Crossmatch 08/13/18 08/13/18 08/13/18 20:07 21:16 23:17 WBC RBC Hgb Hct MCHC RDW Gonzales # Seg Neutrophils % Lymphocytes % (Manual) Seg Neutrophils # Lymphocytes # (Manual) PT INR APTT D-Dimer 2742.50 H Heparin Anti-Xa Level POC ABG pH 7.483 H POC ABG pCO2 30.8 L POC ABG pO2 150 H Sodium Potassium Chloride BUN Creatinine Glucose POC Glucose 245 H Lactic Acid Calcium Magnesium AST Alkaline Phosphatase Total Creatine Kinase CK-MB (CK-2) Troponin T C-Reactive Protein Total Protein Albumin Cholesterol LDL Cholesterol Direct HDL Cholesterol Urine WBC (Auto) Urine Creatinine Urine Total Protein Crossmatch 08/14/18 08/14/18 08/14/18 04:03 04:03 04:56 WBC 18.2 H RBC 2.62 L Hgb 7.3 L Hct 24.5 L MCHC RDW 18.9 H Gonzales # 1.2 H Seg Neutrophils % 79.4 H Lymphocytes % (Manual) Seg Neutrophils # 14.5 H Lymphocytes # (Manual) PT INR APTT D-Dimer Heparin Anti-Xa Level POC ABG pH POC ABG pCO2 33.5 L POC ABG pO2 153 H Sodium 152 H Potassium 3.4 L Chloride 113.8 H BUN 72 H Creatinine 2.7 H Glucose 239 H POC Glucose Lactic Acid Calcium 7.6 L Magnesium AST 50 H Alkaline Phosphatase 219 H Total Creatine Kinase CK-MB (CK-2) Troponin T 0.409 H* C-Reactive Protein Total Protein 6.2 L Albumin 1.9 L Cholesterol LDL Cholesterol Direct HDL Cholesterol Urine WBC (Auto) Urine Creatinine Urine Total Protein Crossmatch 08/14/18 08/14/18 08/14/18 05:18 13:38 15:35 WBC RBC Hgb Hct MCHC RDW Gonzales # Seg Neutrophils % Lymphocytes % (Manual) Seg Neutrophils # Lymphocytes # (Manual) PT INR APTT D-Dimer Heparin Anti-Xa Level POC ABG pH POC ABG pCO2 POC ABG pO2 Sodium 150 H Potassium 3.2 L Chloride 114.5 H BUN 69 H Creatinine 2.3 H Glucose 247 H POC Glucose 242 H 296 H Lactic Acid Calcium 7.2 L Magnesium AST Alkaline Phosphatase Total Creatine Kinase CK-MB (CK-2) Troponin T C-Reactive Protein Total Protein Albumin Cholesterol LDL Cholesterol Direct HDL Cholesterol Urine WBC (Auto) Urine Creatinine Urine Total Protein Crossmatch 08/14/18 08/14/18 08/14/18 17:01 17:20 23:47 WBC RBC Hgb Hct MCHC RDW Gonzales # Seg Neutrophils % Lymphocytes % (Manual) Seg Neutrophils # Lymphocytes # (Manual) PT INR APTT D-Dimer Heparin Anti-Xa Level POC ABG pH POC ABG pCO2 POC ABG pO2 Sodium Potassium Chloride BUN Creatinine Glucose POC Glucose 261 H 280 H Lactic Acid Calcium Magnesium AST Alkaline Phosphatase Total Creatine Kinase CK-MB (CK-2) Troponin T C-Reactive Protein Total Protein Albumin Cholesterol LDL Cholesterol Direct HDL Cholesterol Urine WBC (Auto) Urine Creatinine 60.9 H Urine Total Protein 64 H Crossmatch 08/15/18 08/15/18 08/15/18 04:05 04:05 04:05 WBC RBC Hgb 6.3 L Hct 19.7 L* MCHC RDW Gonzales # Seg Neutrophils % Lymphocytes % (Manual) Seg Neutrophils # Lymphocytes # (Manual) PT INR APTT D-Dimer Heparin Anti-Xa Level 0.17 L POC ABG pH POC ABG pCO2 POC ABG pO2 Sodium 146 H Potassium 3.0 L Chloride 110.6 H BUN 64 H Creatinine 2.2 H Glucose 231 H POC Glucose Lactic Acid Calcium 7.1 L Magnesium AST Alkaline Phosphatase Total Creatine Kinase CK-MB (CK-2) Troponin T C-Reactive Protein Total Protein Albumin Cholesterol LDL Cholesterol Direct HDL Cholesterol Urine WBC (Auto) Urine Creatinine Urine Total Protein Crossmatch 08/15/18 08/15/18 08/15/18 05:21 05:26 06:35 WBC RBC Hgb Hct MCHC RDW Gonzales # Seg Neutrophils % Lymphocytes % (Manual) Seg Neutrophils # Lymphocytes # (Manual) PT INR APTT 79.0 H* D-Dimer Heparin Anti-Xa Level POC ABG pH 7.494 H POC ABG pCO2 POC ABG pO2 155 H Sodium Potassium Chloride BUN Creatinine Glucose POC Glucose 271 H Lactic Acid Calcium Magnesium AST Alkaline Phosphatase Total Creatine Kinase CK-MB (CK-2) Troponin T C-Reactive Protein Total Protein Albumin Cholesterol LDL Cholesterol Direct HDL Cholesterol Urine WBC (Auto) Urine Creatinine Urine Total Protein Crossmatch 08/15/18 08/15/18 08/15/18 12:10 15:31 17:27 WBC RBC Hgb Hct MCHC RDW Gonzales # Seg Neutrophils % Lymphocytes % (Manual) Seg Neutrophils # Lymphocytes # (Manual) PT INR APTT D-Dimer Heparin Anti-Xa Level POC ABG pH POC ABG pCO2 POC ABG pO2 Sodium Potassium Chloride BUN Creatinine Glucose POC Glucose 301 H 287 H Lactic Acid Calcium Magnesium AST Alkaline Phosphatase Total Creatine Kinase CK-MB (CK-2) Troponin T C-Reactive Protein Total Protein Albumin Cholesterol LDL Cholesterol Direct HDL Cholesterol Urine WBC (Auto) Urine Creatinine Urine Total Protein Crossmatch See Detail 08/15/18 08/15/18 08/16/18 21:41 23:45 04:13 WBC RBC Hgb Hct MCHC RDW Gonzales # Seg Neutrophils % Lymphocytes % (Manual) Seg Neutrophils # Lymphocytes # (Manual) PT INR APTT D-Dimer Heparin Anti-Xa Level 0.19 L POC ABG pH POC ABG pCO2 32.1 L POC ABG pO2 107 H Sodium Potassium Chloride BUN Creatinine Glucose POC Glucose 163 H Lactic Acid Calcium Magnesium AST Alkaline Phosphatase Total Creatine Kinase CK-MB (CK-2) Troponin T C-Reactive Protein Total Protein Albumin Cholesterol LDL Cholesterol Direct HDL Cholesterol Urine WBC (Auto) Urine Creatinine Urine Total Protein Crossmatch 08/16/18 08/16/18 04:50 05:28 WBC RBC Hgb Hct MCHC RDW Gonzales # Seg Neutrophils % Lymphocytes % (Manual) Seg Neutrophils # Lymphocytes # (Manual) PT INR APTT D-Dimer Heparin Anti-Xa Level 0.19 L POC ABG pH POC ABG pCO2 POC ABG pO2 Sodium Potassium Chloride BUN Creatinine Glucose POC Glucose 141 H Lactic Acid Calcium Magnesium AST Alkaline Phosphatase Total Creatine Kinase CK-MB (CK-2) Troponin T C-Reactive Protein Total Protein Albumin Cholesterol LDL Cholesterol Direct HDL Cholesterol Urine WBC (Auto) Urine Creatinine Urine Total Protein Crossmatch
[2018-08-16 12:29] LABS: Calcium 6.9 mg/dL (8.4-10.2)
[2018-08-16 12:31] LABS: Hematocrit 23.4 % (35.5-45.6); Hemoglobin 8.1 gm/dl (11.8-15.2); Mean Corpuscular HGB Conc 35 % (32-34); Mean Corpuscular Volume 88 fl (84-94); Platelet Count 208 K/mm3 (140-440); Red Blood Count 2.67 M/mm3 (3.65-5.03); Red Cell Distribution Width 18.3 % (13.2-15.2)
--- NOTE | 2018-08-16 13:27 | Progress Note ---
Assessment and Plan - Patient Problems (1) MAYLIN (acute kidney injury) Current Visit: Yes Status: Acute Plan to address problem: Likely pre-renal injury vs ischemic ATN in the setting of cardiac arrest. Renal function remains stable. Continue current supportive care/management. Avoid nephrotoxins, maintain MAP >65mmHg. (2) Hypokalemia Current Visit: Yes Status: Acute Plan to address problem: Replete per protocol. (3) Acute and chronic respiratory failure Current Visit: Yes Status: Acute Qualifiers: Respiratory failure complication: hypoxia Qualified Code(s): J96.21 - Acute and chronic respiratory failure with hypoxia Plan to address problem: Management per primary attending/pulmonology. (4) Hypernatremia Current Visit: Yes Status: Acute Plan to address problem: Improvement noted, discussed with nursing staff, and can d/c D5 1/2 NS at present time. (5) Cardiac arrest Current Visit: Yes Status: Acute Plan to address problem: Off pressors at this time. Remains intubated, unresponsive off sedation. Poor brainstem reflexes per nursing staff. Further recommendations per cardiology. (6) Type 2 diabetes mellitus without complications Current Visit: Yes Status: Acute Plan to address problem: DM management per primary attending. Subjective Date of service: 08/16/18 Principal diagnosis: Acute hypoxemic resp failure; S/P cardiac arrest; Seizures; DM II; H/O CVA Interval history: No acute changes. s/p brain flow study. neurology evaluation noted. Renal function stable, Objective - Vital Signs Vital signs: Vital Signs - 12hr 08/16/18 08/16/18 08/16/18 01:30 01:41 01:51 Temperature Pulse Rate 70 70 73 Respiratory 25 H 23 24 Rate Blood Pressure 121/52 121/52 112/52 O2 Sat by Pulse 100 100 100 Oximetry 08/16/18 08/16/18 08/16/18 02:00 02:11 02:21 Temperature Pulse Rate 71 72 70 Respiratory 23 28 H 25 H Rate Blood Pressure 121/52 123/54 123/54 O2 Sat by Pulse 100 100 100 Oximetry 08/16/18 08/16/18 08/16/18 02:30 02:41 02:51 Temperature Pulse Rate 68 68 69 Respiratory 25 H 26 H 24 Rate Blood Pressure 116/55 116/55 123/54 O2 Sat by Pulse 100 100 Oximetry 08/16/18 08/16/1819 03:00 03:11 03:21 Temperature Pulse Rate 67 67 68 Respiratory 25 H 25 H 22 Rate Blood Pressure 125/55 125/55 116/55 O2 Sat by Pulse 100 100 Oximetry 08/16/18 08/16/18 08/16/18 03:30 03:41 03:49 Temperature 98.9 F Pulse Rate 68 68 Respiratory 25 H 25 H Rate Blood Pressure 124/56 124/56 O2 Sat by Pulse 100 Oximetry 08/16/18 08/16/18 08/16/18 03:51 04:00 04:08 Temperature Pulse Rate 69 70 70 Respiratory 26 H 25 H Rate Blood Pressure 124/56 116/52 116/52 O2 Sat by Pulse 100 100 95 Oximetry 08/16/18 08/16/18 08/16/18 04:11 04:21 04:30 Temperature Pulse Rate 70 72 70 Respiratory 25 H 25 H 25 H Rate Blood Pressure 116/52 116/52 120/54 O2 Sat by Pulse 100 100 Oximetry 08/16/18 08/16/18 08/16/18 04:41 04:51 05:00 Temperature Pulse Rate 69 69 69 Respiratory 26 H 26 H 24 Rate Blood Pressure 120/54 116/52 121/55 O2 Sat by Pulse 99 99 95 Oximetry 08/16/18 08/16/18 08/16/18 05:11 05:21 05:30 Temperature Pulse Rate 69 68 68 Respiratory 21 24 23 Rate Blood Pressure 121/55 121/55 123/53 O2 Sat by Pulse 99 99 96 Oximetry 08/16/18 08/16/18 08/16/18 05:41 05:51 06:00 Temperature Pulse Rate 69 69 69 Respiratory 24 22 21 Rate Blood Pressure 123/53 123/53 124/51 O2 Sat by Pulse 100 100 96 Oximetry 08/16/18 08/16/18 08/16/18 06:11 06:21 06:30 Temperature Pulse Rate 68 67 69 Respiratory 22 25 H 23 Rate Blood Pressure 124/51 124/51 114/51 O2 Sat by Pulse 100 100 96 Oximetry 08/16/18 08/16/18 08/16/18 06:41 06:51 07:00 Temperature Pulse Rate 67 69 68 Respiratory 22 24 23 Rate Blood Pressure 114/51 114/51 113/52 O2 Sat by Pulse 100 100 97 Oximetry 08/16/18 08/16/1808/16/19 07:11 07:21 07:30 Temperature Pulse Rate 67 66 65 Respiratory 20 24 23 Rate Blood Pressure 113/52 113/52 117/53 O2 Sat by Pulse 100 100 97 Oximetry 08/16/18 08/16/18 08/16/18 07:41 07:51 08:00 Temperature Pulse Rate 66 64 64 Respiratory 24 24 24 Rate Blood Pressure 117/53 117/53 115/50 O2 Sat by Pulse 95 Oximetry 08/16/18 08/16/18 08/16/18 08:11 08:21 08:30 Temperature Pulse Rate 64 64 64 Respiratory 24 24 22 Rate Blood Pressure 115/50 115/50 121/53 O2 Sat by Pulse 100 99 Oximetry 08/16/18 08/16/18 08/16/18 08:41 08:51 09:00 Temperature 96.9 F L Pulse Rate 63 64 66 Respiratory 21 24 23 Rate Blood Pressure 121/53 121/53 126/55 O2 Sat by Pulse 100 100 100 Oximetry 08/16/18 08/16/18 08/16/18 09:11 09:21 09:30 Temperature Pulse Rate 65 65 66 Respiratory 22 25 H 24 Rate Blood Pressure 126/55 126/55 121/53 O2 Sat by Pulse 100 100 100 Oximetry 08/16/18 08/16/18 08/16/18 09:41 09:51 10:00 Temperature Pulse Rate 67 67 67 Respiratory 22 22 21 Rate Blood Pressure 121/53 121/53 127/53 O2 Sat by Pulse 100 100 100 Oximetry 08/16/18 08/16/18 08/16/18 10:11 10:21 10:30 Temperature Pulse Rate 67 68 70 Respiratory 21 18 18 Rate Blood Pressure 127/53 127/53 113/52 O2 Sat by Pulse 100 100 100 Oximetry 08/16/18 08/16/18 08/16/18 10:41 10:51 11:00 Temperature Pulse Rate 66 66 67 Respiratory 20 25 H 17 Rate Blood Pressure 113/52 113/52 134/56 O2 Sat by Pulse 100 100 92 Oximetry 08/16/18 08/16/18 08/16/18 11:11 11:21 11:30 Temperature Pulse Rate 65 65 65 Respiratory 22 22 21 Rate Blood Pressure 134/56 134/56 126/52 O2 Sat by Pulse 100 99 96 Oximetry 08/16/18 08/16/1819 11:41 11:47 11:51 Temperature Pulse Rate 65 67 66 Respiratory 20 21 Rate Blood Pressure 126/52 126/52 O2 Sat by Pulse 99 100 99 Oximetry 08/16/18 12:00 Temperature Pulse Rate 66 Respiratory 18 Rate Blood Pressure 131/53 O2 Sat by Pulse 96 Oximetry - General Appearance General appearance: cachectic, chronically ill, intubated, frail EENT: ATNC Neck: no JVD Respiratory: Present: Decreased Breath Sounds Cardiology: regular, S1S2 Gastrointestinal: normal Integumentary: no rash Neurologic: other (unresponsive off sedation ) Musculoskeletal: other (-edema ) - Lab 08/16/18 11:30 08/16/18 11:30 Most recent lab results Calcium 6.9 mg/dL (8.4-10.2) L 08/16/18 11:30 Phosphorus 3.90 mg/dL (2.5-4.5) 08/15/18 04:05 Magnesium 2.20 mg/dL (1.7-2.3) 08/15/18 04:05 60.9 mg/dL (0.1-20.0) H 08/14/18 17:20 32 mmol/L 08/14/18 17:20 64 mg/dL (5-11.8) H 08/14/18 17:20 - Allied health notes Allied health notes reviewed: nursing Medications & Allergies - Medications Allergies/Adverse Reactions: Allergies No Known Allergies Allergy (Verified 08/12/18 21:47) Active Medications: Generic Name Dose Route Start Last Admin Trade Name Freq PRN Reason Stop Dose Admin Acetaminophen 650 mg 08/13/18 11:40 08/13/18 16:09 Tylenol PO 650 mg Q6H PRN Administration Fever >101 Lipase/Protease/Amylase 1 each 08/13/18 15:[address] 10,500 Unit FEEDTUBE PRN PRN For Clogged Feeding Tube Aspirin 300 mg 08/13/18 12:00 08/16/18 10:50 Aspirin [place] 300 mg QDAY LENCHO Administration Atorvastatin Calcium 40 mg 08/14/18 22:00 08/15/18 21:36 Lipitor PO 40 mg QHS LENCHO Administration Dextrose 50 ml 08/13/18 01:34 D50w (25gm) Syringe IV PRN PRN Hypoglycemia Famotidine 20 mg 08/14/18 10:00 08/16/18 10:50 Pepcid IV 20 mg DAILY LENCHO Administration Hydrophilic Ointment 1 applic 08/13/18 12:21 Vaseline Lip Therapy TP Q2HR PRN Dry Lips Heparin Sodium/Sodium Chloride 25,000 unit in 500 mls @ 20 mls/hr 08/13/18 01:00 08/16/18 05:57 Heparin/ 0.45% Nacl-25,000 Unit/500 Ml IV 1,150 units/hr TITRATE LENCHO 23 mls/hr Titration Protocol 1,000 UNITS/HR Norepinephrine 4 mg in 250 mls @ 7.5 mls/hr 08/12/18 21:00 08/14/18 11:06 Levophed Drip 4 Mg/Ns 250 Ml IV 0 mcg/min TITR LENCHO 0 mls/hr Titration Protocol 2 MCG/MIN Dextrose 1,000 mls @ 100 mls/hr 08/13/18 03:00 08/16/18 06:12 D5w IV 75 mls/hr DIRECT LENCHO Administration Propofol 1,000 mg in 100 mls @ 2.177 mls/hr 08/13/18 13:00 08/14/18 16:00 Diprivan 10 Mg/Ml IV 5 mcg/kg/min TITR LENCHO 2.177 mls/hr Titration Protocol 5 MCG/KG/MIN Piperacillin Sod/Tazobactam Sod 2.25 gm in 50 mls @ 100 mls/hr 08/14/18 12:00 08/16/18 11:04 Zosyn/Ns 2.25 Gm/50ml IV 100 mls/hr Q6HR LENCHO Administration Fentanyl Citrate 2,000 mcg in 100 mls @ 3.629 mls/hr 08/14/18 13:00 Fentanyl Drip Premix IV TITR LENCHO Protocol 1 MCG/KG/HR Insulin Glargine 20 units 08/15/18 20:30 08/16/18 10:50 Lantus SUB-Q 20 units DAILY LENCHO Administration Insulin Human Lispro 0 unit 08/13/18 06:00 08/16/18 08:42 Humalog SUB-Q Not Given Q6HR LENCHO Protocol Levetiracetam 1,000 mg 08/13/18 15:00 08/16/18 10:46 Keppra PO 1,000 mg BID LENCHO Administration Multi-Ingred Cream/Lotion/Oil/Oint 1 applic 08/13/18 12:21 08/16/18 02:24 Artificial Tears Ophth Oint OU 1 applic Q4HR PRN Administration Dry Eye(s) Ondansetron HCl 4 mg 08/13/18 01:34 Zofran IV Q8H PRN Nausea And Vomiting Simple Syrup 15 ml 08/13/18 15:55 Simple Syrup FEEDTUBE PRN PRN Hypoglycemia Simple Syrup 30 ml 08/13/18 15:55 Simple Syrup FEEDTUBE PRN PRN Hypoglycemia Sodium Bicarbonate 325 mg 08/13/18 15:55 Sodium Bicarbonate FEEDTUBE PRN PRN For Clogged Feeding Tube Sodium Chloride 10 ml 08/13/18 10:00 08/16/18 10:51 Sodium Chloride Flush Syringe 10 Ml IV 10 ml BID LENCHO Administration Sodium Chloride 10 ml 08/13/18 01:34 Sodium Chloride Flush Syringe 10 Ml IV PRN PRN LINE FLUSH
--- NOTE | 2018-08-16 14:31 | Consultation ---
HISTORY OF PRESENT ILLNESS: This is a 77-year-old black male that presents to [facility], was initially admitted on 08/12/2018. He was admitted after having been found unresponsive in [facility]. Per EMS, he was initially bagged with his trach. He did not have pulse, but had return of spontaneous circulation. He lost his pulse again en route and was again resuscitated. In the Emergency Room, he was noted to be without a pulse. Therefore, he was pulseless cardiac arrest. He was admitted to the hospital with hypertension, hypernatremia, myocardial infarction and pneumothorax. The patient had had cardiac arrest at time of admission. Since being admitted, his condition has remained without any evidence of any improvement. Initial CAT scan of the brain was reviewed by myself and has extremely severe atrophy throughout bilateral old frontal strokes more confluent posteriorly and large area of stroke in the left hemisphere suggestive of middle cerebral artery infarct, but also as well bilaterally chronic infarcts. Brain stem is very small in diameter. 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 I did a neurological examination on him. He has absent pupils. No reactions to light. Absent doll's eyes. No gag reflex, no response to pain. I do not find any spontaneous movements at all. From review of the studies, he has had no evidence of any overall improvement in his condition since admission and I did review over some images from the cerebral blood flow study and I do not see any clear flow of the radioisotope into the brain, but this report is pending. Neurologically, I do not find evidence of any meaningful cerebral activity. Prognosis is extremely poor. The patient seems to be in non-recoverable state. JOB# [id number] JAZMIN/NELSON
--- NOTE | 2018-08-16 14:43 | Progress Note ---
Assessment and Plan Assessment and plan: 69-year-old man with a history of chronic respiratory failure who is status post trach, per his family the trach was being downsized -The patient developed respiratory distress at home, EMS was called, EMS was trying to back 3 and refusing some obstruction. He was pulseless 2. Received CPR and had return of spontaneous circulation 2. Upon arrival in the ER the patient was again noted to not have a pulse he received CPR, kilocalorie volumes on the tracheostomy which is suspicious for a week as he had a continuous emphysema. Therefore the patient was orally intubated. He was found to have a right pneumothorax and received percutaneous chest tube sp cardiac arrest x3 Acute on chronic respiratory failure on mechanical ventilation less than 96 hours Trach has been removed patient is orally intubated, continue ventilator management per pulmonology Right pneumothorax Status post chest tube, mgt per pulmonology Anoxic brain injury and status epilepticus Patient was noted to be having seizures, he received Ativan and Keppra, neurology consult appreciated, poor prognosis, poor likelihood of recovery, suspect brain . Hypernatremia/free water deficits Continue free water via G-tube, continue hypotonic IV solutio acute kidney injury likely due to ATN Nephrology consult, continue IV fluid, avoid renal toxic agents Acute OR -Likely a type II OR Elevated troponin unit after patient has had cardiac arrest 3, expected outcome, cardiology consult appreciated, continue heparin drip, aspirin and stat in -Patient would have to clinically improved undergo any coronary risk stratification Severe malnutrition Dietitian consult, continue tube feedings UTI/sepsis Continue antibiotics, follow-up urine cultures Urinary retention continue douglass, do not remove DVT prophylaxis; patient is fully anticoagulated on heparin drip Discussed with family, poor prognosis, they are still hopeful, awaiting NM brain flow scan History Interval history: Patient remains intubated no shaking, no seizures He remains nonresponsive No fevers No vomiting Hospitalist Physical - Physical exam Narrative exam: General.: Obtunded HEENT: Moist mucous membranes, no lymphadenopathy Neck: supple, dressing noted over his neck, trach has been removed Cardiac: S1-S2 heard Lungs: clear to auscultation bilaterally Abdomen: soft , nondistended, bowel sounds positive Extremities: no edema clubbing or cyanosis Skin: Dressing noted on lower extremities Neurologic: upward gaze, pupils are sluggish, patient is lacking most reflexes, no gag refrlex, he is nonresponsive to painful stimuli, extremities are flaccid Psych: Obtunded - Constitutional Vitals: Temp Pulse Resp BP Pulse Ox 96.9 F L 71 22 129/58 98 08/16/18 08:41 08/16/18 14:00 08/16/18 14:00 08/16/18 14:00 08/16/18 14:00 General appearance: Present: other (twitching, nonresponsive, intubated) Results - Labs CBC & Chem 7: 08/16/18 11:30 08/16/18 11:30 Labs: Laboratory Last Values WBC 8.5 K/mm3 (4.5-11.0) 08/16/18 11:30 RBC 2.67 M/mm3 (3.65-5.03) L 08/16/18 11:30 Hgb 8.1 gm/dl (11.8-15.2) L 08/16/18 11:30 Hct 23.4 % (35.5-45.6) L 08/16/18 11:30 MCV 88 fl (84-94) 08/16/18 11:30 MCH 30 pg (28-32) 08/16/18 11:30 MCHC 35 % (32-34) H 08/16/18 11:30 RDW 18.3 % (13.2-15.2) H 08/16/18 11:30 Plt Count 208 K/mm3 (140-440) 08/16/18 11:30 Lymph % (Auto) 13.6 % (13.4-35.0) 08/14/18 04:03 Benson % (Auto) 6.4 % (0.0-7.3) 08/14/18 04:03 Eos % (Auto) 0.1 % (0.0-4.3) 08/14/18 04:03 Baso % (Auto) 0.5 % (0.0-1.8) 08/14/18 04:03 Lymph # 2.5 K/mm3 (1.2-5.4) 08/14/18 04:03 Benson # 1.2 K/mm3 (0.0-0.8) H 08/14/18 04:03 Eos # 0.0 K/mm3 (0.0-0.4) 08/14/18 04:03 Baso # 0.1 K/mm3 (0.0-0.1) 08/14/18 04:03 Add Manual Diff Complete 08/12/18 21:44 Total Counted 100 08/12/18 21:44 Seg Neutrophils % 79.4 % (40.0-70.0) H 08/14/18 04:03 Seg Neuts % (Manual) 44.0 % (40.0-70.0) 08/12/18 21:44 0 % 08/12/18 21:44 48.0 % (13.4-35.0) H 08/12/18 21:44 Reactive Lymphs % (Man) 0 % 08/12/18 21:44 2.0 % (0.0-7.3) 08/12/18 21:44 1.0 % (0.0-4.3) 08/12/18 21:44 0 % (0.0-1.8) 08/12/18 21:44 1.0 % 08/12/18 21:44 4.0 % 08/12/18 21:44 0 % 08/12/18 21:44 0 % 08/12/18 21:44 Nucleated RBC % Not Reportable 08/12/18 21:44 Seg Neutrophils # 14.5 K/mm3 (1.8-7.7) H 08/14/18 04:03 Seg Neutrophils # Man 6.8 K/mm3 (1.8-7.7) 08/12/18 21:44 Band Neutrophils # 0.0 K/mm3 08/12/18 21:44 7.4 K/mm3 (1.2-5.4) H 08/12/18 21:44 Abs React Lymphs (Man) 0.0 K/mm3 08/12/18 21:44 0.3 K/mm3 (0.0-0.8) 08/12/18 21:44 0.2 K/mm3 (0.0-0.4) 08/12/18 21:44 0.0 K/mm3 (0.0-0.1) 08/12/18 21:44 0.2 K/mm3 08/12/18 21:44 0.6 K/mm3 08/12/18 21:44 0.0 K/mm3 08/12/18 21:44 Blast Cells # 0.0 K/mm3 08/12/18 21:44 WBC Morphology Not Reportable 08/12/18 21:44 Hypersegmented Neuts Not Reportable 08/12/18 21:44 Hyposegmented Neuts Not Reportable 08/12/18 21:44 Hypogranular Neuts Not Reportable 08/12/18 21:44 Not Reportable 08/12/18 21:44 Not Reportable 08/12/18 21:44 Not Reportable 08/12/18 21:44 Not Reportable 08/12/18 21:44 Not Reportable 08/12/18 21:44 Not Reportable 08/12/18 21:44 Consistent w auto 08/12/18 21:44 Not Reportable 08/12/18 21:44 Plt Clumps, EDTA Not Reportable 08/12/18 21:44 Not Reportable 08/12/18 21:44 Not Reportable 08/12/18 21:44 Not Reportable 08/12/18 21:44 Plt Morphology Comment Not Reportable 08/12/18 21:44 RBC Morphology Not Reportable 08/12/18 21:44 Dimorphic RBCs Not Reportable 08/12/18 21:44 Not Reportable 08/12/18 21:44 Not Reportable 08/12/18 21:44 Not Reportable 08/12/18 21:44 Few 08/12/18 21:44 Not Reportable 08/12/18 21:44 Not Reportable 08/12/18 21:44 Not Reportable 08/12/18 21:44 Not Reportable 08/12/18 21:44 Not Reportable 08/12/18 21:44 Not Reportable 08/12/18 21:44 Not Reportable 08/12/18 21:44 Few 08/12/18 21:44 Not Reportable 08/12/18 21:44 Not Reportable 08/12/18 21:44 Not Reportable 08/12/18 21:44 Not Reportable 08/12/18 21:44 Not Reportable 08/12/18 21:44 Not Reportable 08/12/18 21:44 Few 08/12/18 21:44 Acanthocytes (Spur) Not Reportable 08/12/18 21:44 Rouleaux Not Reportable 08/12/18 21:44 Not Reportable 08/12/18 21:44 Not Reportable 08/12/18 21:44 Not Reportable 08/12/18 21:44 Not Reportable 08/12/18 21:44 Hem Pathologist Commnt No 08/12/18 21:44 PT 16.5 Sec. (12.2-14.9) H 08/13/18 00:47 INR 1.25 (0.87-1.13) H 08/13/18 00:47 APTT 79.0 Sec. (24.2-36.6) H* 08/15/18 06:35 2742.50 ng/mlDDU (0-234) H 08/13/18 20:07 Heparin Anti-Xa Level 0.15 U.I./ml (0.3-0.7) L 08/16/18 12:00 POC ABG pH 7.425 (7.35-7.45) 08/16/18 04:13 POC ABG pCO2 32.1 (35-45) L 08/16/18 04:13 POC ABG pO2 107 (80-105) H 08/16/18 04:13 POC ABG HCO3 21.1 (22-26 mml/L) 08/16/18 04:13 POC ABG Total CO2 22 (23-27mmol/L) 08/16/18 04:13 POC ABG O2 Sat 98 08/16/18 04:13 POC ABG Base Excess -3 ((-2) - (+3)mmol/L) 08/16/18 04:13 28 % 08/16/18 04:13 Sodium 141 mmol/L (137-145) 08/16/18 11:30 Potassium 3.6 mmol/L (3.6-5.0) 08/16/18 11:30 Chloride 107.8 mmol/L (98-107) H 08/16/18 11:30 Carbon Dioxide 21 mmol/L (22-30) L 08/16/18 11:30 16 mmol/L 08/16/18 11:30 BUN 47 mg/dL (9-20) H 08/16/18 11:30 1.6 mg/dL (0.8-1.5) H 08/16/18 11:30 Estimated GFR 51 ml/min 08/16/18 11:30 29 % 08/16/18 11:30 Glucose 221 mg/dL (75-100) H 08/16/18 11:30 POC Glucose 267 (70-105) H 08/16/18 12:01 Lactic Acid 2.80 mmol/L (0.7-2.0) H* 08/13/18 12:53 Calcium 6.9 mg/dL (8.4-10.2) L 08/16/18 11:30 Phosphorus 3.90 mg/dL (2.5-4.5) 08/15/18 04:05 Magnesium 2.20 mg/dL (1.7-2.3) 08/15/18 04:05 0.30 mg/dL (0.1-1.2) 08/14/18 04:03 AST 50 units/L (5-40) H 08/14/18 04:03 ALT 55 units/L (7-56) 08/14/18 04:03 219 units/L (35-129) H 08/14/18 04:03 309 units/L (55-170) H 08/13/18 10:10 CK-MB (CK-2) 4.1 ng/mL (0.0-4.0) H 08/13/18 10:10 CK-MB (CK-2) Rel Index 1.3 (0-4) 08/13/18 10:10 0.409 ng/mL (0.00-0.029) H* 08/14/18 04:03 16.90 mg/dL (0.00-1.30) H 08/13/18 12:53 6.2 g/dL (6.3-8.2) L 08/14/18 04:03 1.9 g/dL (3.9-5) L 08/14/18 04:03 0.4 % 08/14/18 04:03 Triglycerides 62 mg/dL (2-149) 08/13/18 00:32 Cholesterol 46 mg/dL (50-199) L 08/13/18 00:32 17 mg/dL (50-130) L 08/13/18 00:32 6 mg/dL (40-59) L 08/13/18 00:32 7.66 % 08/13/18 00:32 Yellow (Yellow) 08/13/18 00:50 Cloudy (Clear) 08/13/18 00:50 7.0 (5.0-7.0) 08/13/18 00:50 Ur Specific [place] 1.025 (1.003-1.030) 08/13/18 00:50 100 mg/dl mg/dL (Negative) 08/13/18 00:50 50 mg/dL (Negative) 08/13/18 00:50 Tr mg/dL (Negative) 08/13/18 00:50 Mod (Negative) 08/13/18 00:50 Neg (Negative) 08/13/18 00:50 Neg (Negative) 08/13/18 00:50 < 2.0 mg/dL (<2.0) 08/13/18 00:50 Ur Leukocyte Esterase Mod (Negative) 08/13/18 00:50 > 182.0 /HPF (0.0-6.0) H 08/13/18 00:50 > 182.0 /HPF (0.0-6.0) 08/13/18 00:50 2+ /HPF (Negative) 08/13/18 00:50 3+ /HPF 08/13/18 00:50 None seen (None Seen) 08/14/18 17:20 60.9 mg/dL (0.1-20.0) H 08/14/18 17:20 32 mmol/L 08/14/18 17:20 64 mg/dL (5-11.8) H 08/14/18 17:20 Presumptive negative 08/12/18 21:30 Presumptive negative 08/12/18 21:30 Ur Barbiturates Screen Presumptive negative 08/12/18 21:30 Ur Phencyclidine Scrn Presumptive negative 08/12/18 21:30 Ur Amphetamines Screen Presumptive negative 08/12/18 21:30 U Benzodiazepines Scrn Presumptive negative 08/12/18 21:30 Presumptive negative 08/12/18 21:30 U Marijuana (THC) Screen Presumptive negative 08/12/18 21:30 Disclamer 08/12/18 21:30 Blood Type O POSITIVE 08/15/18 15:31 Antibody Screen Negative 08/15/18 15:31 Crossmatch See Detail 08/15/18 15:31 Active Medications - Current Medications Current Medications: Generic Name Dose Route Start Last Admin Trade Name Freq PRN Reason Stop Dose Admin Acetaminophen 650 mg 08/13/18 11:40 08/13/18 16:09 Tylenol PO 650 mg Q6H PRN Administration Fever >101 Lipase/Protease/Amylase 1 each 08/13/18 15:[address] 10,500 Unit FEEDTUBE PRN PRN For Clogged Feeding Tube Aspirin 300 mg 08/13/18 12:00 08/16/18 10:50 Aspirin TX 300 mg QDAY LENCHO Administration Atorvastatin Calcium 40 mg 08/14/18 22:00 08/15/18 21:36 Lipitor PO 40 mg QHS LENCHO Administration Dextrose 50 ml 08/13/18 01:34 D50w (25gm) Syringe IV PRN PRN Hypoglycemia Famotidine 20 mg 08/14/18 10:00 08/16/18 10:50 Pepcid IV 20 mg DAILY LENCHO Administration Hydrophilic Ointment 1 applic 08/13/18 12:21 Vaseline Lip Therapy TP Q2HR PRN Dry Lips Heparin Sodium/Sodium Chloride 25,000 unit in 500 mls @ 20 mls/hr 08/13/18 01:00 08/16/18 13:48 Heparin/ 0.45% Nacl-25,000 Unit/500 Ml IV 1,250 units/hr TITRATE LENCHO 25 mls/hr Titration Protocol 1,000 UNITS/HR Norepinephrine 4 mg in 250 mls @ 7.5 mls/hr 08/12/18 21:00 08/14/18 11:06 Levophed Drip 4 Mg/Ns 250 Ml IV 0 mcg/min TITR LENCHO 0 mls/hr Titration Protocol 2 MCG/MIN Dextrose 1,000 mls @ 100 mls/hr 08/13/18 03:00 08/16/18 06:12 D5w IV 75 mls/hr DIRECT LENCHO Administration Propofol 1,000 mg in 100 mls @ 2.177 mls/hr 08/13/18 13:00 08/14/18 16:00 Diprivan 10 Mg/Ml IV 5 mcg/kg/min TITR LENCHO 2.177 mls/hr Titration Protocol 5 MCG/KG/MIN Piperacillin Sod/Tazobactam Sod 2.25 gm in 50 mls @ 100 mls/hr 08/14/18 12:00 08/16/18 11:04 Zosyn/Ns 2.25 Gm/50ml IV 100 mls/hr Q6HR LENCHO Administration Fentanyl Citrate 2,000 mcg in 100 mls @ 3.629 mls/hr 08/14/18 13:00 Fentanyl Drip Premix IV TITR [facility] Protocol 1 MCG/KG/HR Insulin Glargine 20 units 08/15/18 20:30 08/16/18 10:50 Lantus SUB-Q 20 units DAILY LENCHO Administration Insulin Human Lispro 0 unit 08/13/18 06:00 08/16/18 08:42 Humalog SUB-Q Not Given Q6HR [facility] Protocol Levetiracetam 1,000 mg 08/13/18 15:00 08/16/18 10:46 Keppra PO 1,000 mg BID LENCHO Administration Multi-Ingred Cream/Lotion/Oil/Oint 1 applic 08/13/18 12:21 08/16/18 02:24 Artificial Tears Ophth Oint OU 1 applic Q4HR PRN Administration Dry Eye(s) Ondansetron HCl 4 mg 08/13/18 01:34 Zofran IV Q8H PRN Nausea And Vomiting Simple Syrup 15 ml 08/13/18 15:55 Simple Syrup FEEDTUBE PRN PRN Hypoglycemia Simple Syrup 30 ml 08/13/18 15:55 Simple Syrup FEEDTUBE PRN PRN Hypoglycemia Sodium Bicarbonate 325 mg 08/13/18 15:55 Sodium Bicarbonate FEEDTUBE PRN PRN For Clogged Feeding Tube Sodium Chloride 10 ml 08/13/18 10:00 08/16/18 10:51 Sodium Chloride Flush Syringe 10 Ml IV 10 ml BID LENCHO Administration Sodium Chloride 10 ml 08/13/18 01:34 Sodium Chloride Flush Syringe 10 Ml IV PRN PRN LINE FLUSH Nutrition/Malnutrition Assess - Dietary Evaluation Nutrition/Malnutrition Findings: Nutrition Notes Start: 08/13/18 15:41 Freq: Status: Active Protocol: Document 08/15/18 14:10 RM (Rec: 08/15/18 14:15 RM [id number]) Nutrition Notes Initial or Follow up Reassessment Current Diagnosis Diabetes Other Pertinent Diagnosis UTI, Hx CVA, PEG, Sacral PU,Hx hydrocephalus, Multiple PU Current Diet Vital 1.2 at 60 ml/hr Labs/Tests Na 146 Pertinent Medications Lasix Height 5 ft 8 in Weight 72.575 kg [place] Body Weight (kg) 70.00 BMI 24.3 Subjective/Other Information Observed Vital 1.2 infusing at 20 ml/hr. Nurse stated that she plans to advance TF to goal. Burn Absent Trauma Absent #1 Nutrition Diagnosis Inadequate oral intake Diagnosis Progress(for reassessment Continues documentation) Is patient on ventilator? Yes Is Patient Ambulatory and/or Out of Bed No REE-([facility]-confined to bed) [phone] Calculation Used for Recommendations [facility] Additional Notes Protein Needs: 87-145g (1.2-2g /kg) Fluid Needs: 1 ml/kcal Nutrition Intervention Nutrition Support: Vital 1.2 at 60 ml/hr. Water flush of 250 mls q 4 hrs per MD until hypernatremia resolves Water flush of 100 mls q 4 hrs once hypernatremia resolves. Kcal 1,728 Protein (gm) 108 Fiber (gm) 5 Goal #1 TF tolerance Goal #2 Meet at least 80% of calorie and protein needs via TF Anticipated Discharge Needs: TF Follow-Up By: 08/17/18 Additional Comments Follow for TF at goal, TF tolerance, Na lab
--- NOTE | 2018-08-16 17:05 | Progress Note ---
Assessment and Plan Acute hypoxemic respiratory failure on chronic. Status post cardiac arrest. Seizure disorder with breakthrough seizures. History of diabetes. History of cerebrovascular accident. Oropharyngeal dysphagia. History of seizures. (AMS is rate limiting step to safe extubation at this point) - dopplers negative for VTE - NM scan demonstrates blood flow - continue MVS at set rate at 12/min - begin daily SBT's in am as tolerated (RT notified) - ABG after initial 2 hours on SBT in am - continue chest tube to continuous wall suction (pull after liberating from MVS) - neurology evaluation ongoing (pupils reactive sluggishly) - sedation target for RASS 0 to -1 (daily SAT's as tolerated) - continue Keppra for seizures with prn ativan IV for breakthrough - continue GI & VTE prophylaxis - continue bronchodilators with pulmonary hygiene per RT - continue to wean supplemental oxygen to keep O2 sats 88-90% - Lung protective strategies - VAP bundle addressed - Continue cardioprotective measures - Replete electrolytes as indicated - Continue to rest at night on full MVS - Monitor renal indices closely - Avoid nephrotoxic agents, adjust all medications for CrCL - Strict intake and output monitoring - continue enteral nutrition as tolerated - begin lantus 10 units SQ daily for hyperglycemia - continue accuchecks with glycemic control per SSI for target glucose of 140- 180 mg/dL - Maintenance of sleep -wake cycle - Mobility as tolerated by hemodynamics - Influenza and pneumonia vaccination per protocol .... he will need a tracheostomy if continued care is preferred by his next of kin and i will discuss with her next 24-48 hours PROGNOSIS: GUARDED CONDITION: CRITICAL CODE STATUS: FULL CODE The high probability of a clinically significant, sudden or life-threatening deterioration of the [respiratory, neurology, renal] system(s) required my full and direct attention, intervention and personal management. The aggregate critical care time was [31] minutes without overlap. Time includes spent on; [x] Data Review and interpretation [x] Patient assessment and monitoring of vital signs [x] Documentation [x] Medication orders and management Subjective Date of service: 08/16/18 Principal diagnosis: Acute hypoxemic resp failure; S/P cardiac arrest; Seizures; DM II; H/O CVA Interval history: Patient is seen today for: Acute hypoxemic respiratory failure on chronic; Status post cardiac arrest; Seizure disorder with breakthrough seizures; History of diabetes; History of cerebrovascular accident; Oropharyngeal dysphagia; History of seizures. Seen and examined at bedside; 24hour events reviewed; nursing and respiratory care staff consulted; no adverse overnight events reported to me; remains on MVS; minimal pupilary responses but has spontaneous respiratory effort; no seizures; no emesis or overt aspiration and tolerating tube feeds well Objective Vital Signs - 12hr 08/16/18 08/16/18 08/16/18 05:11 05:21 05:30 Temperature Pulse Rate 69 68 68 Respiratory 21 24 23 Rate Blood Pressure 121/55 121/55 123/53 O2 Sat by Pulse 99 99 96 Oximetry 08/16/18 08/16/18 08/16/18 05:41 05:51 06:00 Temperature Pulse Rate 69 69 69 Respiratory 24 22 21 Rate Blood Pressure 123/53 123/53 124/51 O2 Sat by Pulse 100 100 96 Oximetry 08/16/18 08/16/18 08/16/18 06:11 06:21 06:30 Temperature Pulse Rate 68 67 69 Respiratory 22 25 H 23 Rate Blood Pressure 124/51 124/51 114/51 O2 Sat by Pulse 100 100 96 Oximetry 08/16/18 08/16/18 08/16/18 06:41 06:51 07:00 Temperature Pulse Rate 67 69 68 Respiratory 22 24 23 Rate Blood Pressure 114/51 114/51 113/52 O2 Sat by Pulse 100 100 97 Oximetry 08/16/18 08/16/18 08/16/18 07:11 07:21 07:30 Temperature Pulse Rate 67 66 65 Respiratory 20 24 23 Rate Blood Pressure 113/52 113/52 117/53 O2 Sat by Pulse 100 100 97 Oximetry 08/16/18 08/16/18 08/16/18 07:41 07:51 08:00 Temperature Pulse Rate 66 64 64 Respiratory 24 24 24 Rate Blood Pressure 117/53 117/53 115/50 O2 Sat by Pulse 95 Oximetry 08/16/18 08/16/18 08/16/18 08:11 08:21 08:30 Temperature Pulse Rate 64 64 64 Respiratory 24 24 22 Rate Blood Pressure 115/50 115/50 121/53 O2 Sat by Pulse 100 99 Oximetry 08/16/18 08/16/18 08/16/18 08:41 08:51 09:00 Temperature 96.9 F L Pulse Rate 63 64 66 Respiratory 21 24 23 Rate Blood Pressure 121/53 121/53 126/55 O2 Sat by Pulse 100 100 100 Oximetry 08/16/18 08/16/18 08/16/18 09:11 09:21 09:30 Temperature Pulse Rate 65 65 66 Respiratory 22 25 H 24 Rate Blood Pressure 126/55 126/55 121/53 O2 Sat by Pulse 100 100 100 Oximetry 08/16/18 08/16/18 08/16/18 09:41 09:51 10:00 Temperature Pulse Rate 67 67 67 Respiratory 22 22 21 Rate Blood Pressure 121/53 121/53 127/53 O2 Sat by Pulse 100 100 100 Oximetry 08/16/18 08/16/18 08/16/18 10:11 10:21 10:30 Temperature Pulse Rate 67 68 70 Respiratory 21 18 18 Rate Blood Pressure 127/53 127/53 113/52 O2 Sat by Pulse 100 100 100 Oximetry 08/16/18 08/16/18 08/16/18 10:41 10:51 11:00 Temperature Pulse Rate 66 66 67 Respiratory 20 25 H 17 Rate Blood Pressure 113/52 113/52 134/56 O2 Sat by Pulse 100 100 92 Oximetry 08/16/18 08/16/18 08/16/18 11:11 11:21 11:30 Temperature Pulse Rate 65 65 65 Respiratory 22 22 21 Rate Blood Pressure 134/56 134/56 126/52 O2 Sat by Pulse 100 99 96 Oximetry 08/16/18 08/16/18 08/16/18 11:41 11:47 11:51 Temperature Pulse Rate 65 67 66 Respiratory 20 21 Rate Blood Pressure 126/52 126/52 O2 Sat by Pulse 99 100 99 Oximetry 08/16/18 08/16/18 08/16/18 12:00 12:11 12:21 Temperature Pulse Rate 66 66 67 Respiratory 18 21 17 Rate Blood Pressure 131/53 134/56 134/56 O2 Sat by Pulse 96 98 98 Oximetry 08/16/18 08/16/18 08/16/18 12:30 12:41 12:51 Temperature Pulse Rate 72 67 65 Respiratory 18 19 20 Rate Blood Pressure 131/55 131/55 131/55 O2 Sat by Pulse 96 98 100 Oximetry 08/16/18 08/16/18 08/16/18 13:00 13:11 13:21 Temperature Pulse Rate 65 74 70 Respiratory 21 23 21 Rate Blood Pressure 125/54 131/55 131/55 O2 Sat by Pulse 99 100 100 Oximetry 08/16/18 08/16/18 08/16/18 13:30 13:41 13:51 Temperature Pulse Rate 71 72 73 Respiratory 21 20 21 Rate Blood Pressure 136/55 136/55 136/55 O2 Sat by Pulse 98 100 99 Oximetry 08/16/18 08/16/18 14:00 15:51 Temperature Pulse Rate 71 79 Respiratory 22 Rate Blood Pressure 129/58 136/61 O2 Sat by Pulse 98 100 Oximetry Constitutional: no acute distress, other (Elderly looking AAM, normocephalic resting in bed on MVS) Eyes: non-icteric ENT: oropharynx moist, other (ETT 23-24 cm JOVI) Neck: supple, no lymphadenopathy, no JVD Effort: mildly labored Ascultation: Bilateral: diminished breath sounds, rhonchi Percussion: Bilateral: not dull Cardiovascular: regular rate and rhythm Gastrointestinal: normoactive bowel sounds, soft, non-tender, non-distended Integumentary: normal Extremities: no cyanosis, pulses normal, no ischemia or petechiae, edema (trace ) Neurologic: unable to assess, other (slight pupillary constriction to light) Psychiatric: other (unable to assess) CBC and BMP: 08/17/18 04:55 08/16/18 11:30 ABG, PT/INR, D-dimer: ABG POC ABG pH 7.425 (7.35-7.45) 08/16/18 04:13 POC ABG pCO2 32.1 (35-45) L 08/16/18 04:13 POC ABG pO2 107 (80-105) H 08/16/18 04:13 POC ABG HCO3 21.1 (22-26 mml/L) 08/16/18 04:13 POC ABG Total CO2 22 (23-27mmol/L) 08/16/18 04:13 POC ABG O2 Sat 98 08/16/18 04:13 PT/INR, D-dimer PT 16.5 Sec. (12.2-14.9) H 08/13/18 00:47 INR 1.25 (0.87-1.13) H 08/13/18 00:47 2742.50 ng/mlDDU (0-234) H 08/13/18 20:07 Abnormal lab findings: Abnormal Labs 08/12/18 08/12/1819 21:44 21:44 21:44 WBC 15.5 H RBC 3.12 L Hgb 8.8 L Hct 28.9 L MCHC 31 L RDW 19.5 H [place] # Seg Neutrophils % Lymphocytes % (Manual) 48.0 H Seg Neutrophils # Lymphocytes # (Manual) 7.4 H PT 17.8 H INR 1.37 H APTT D-Dimer Heparin Anti-Xa Level POC ABG pH POC ABG pCO2 POC ABG pO2 Sodium 159 H Potassium Chloride 118.5 H Carbon Dioxide BUN 34 H Creatinine Glucose 161 H POC Glucose Lactic Acid Calcium Magnesium AST Alkaline Phosphatase Total Creatine Kinase CK-MB (CK-2) Troponin T 0.105 H* C-Reactive Protein Total Protein Albumin Cholesterol LDL Cholesterol Direct HDL Cholesterol Urine WBC (Auto) Urine Creatinine Urine Total Protein Crossmatch 08/13/18 08/13/18 08/13/18 00:32 00:47 00:47 WBC RBC Hgb 9.2 L Hct 29.6 L MCHC RDW [place] # Seg Neutrophils % Lymphocytes % (Manual) Seg Neutrophils # Lymphocytes # (Manual) PT 16.5 H INR 1.25 H APTT 37.3 H D-Dimer Heparin Anti-Xa Level POC ABG pH POC ABG pCO2 POC ABG pO2 Sodium Potassium Chloride Carbon Dioxide BUN Creatinine Glucose POC Glucose Lactic Acid Calcium Magnesium AST Alkaline Phosphatase Total Creatine Kinase 211 H CK-MB (CK-2) 7.7 H Troponin T 0.169 H* D C-Reactive Protein Total Protein Albumin Cholesterol 46 L LDL Cholesterol Direct 17 L HDL Cholesterol 6 L Urine WBC (Auto) Urine Creatinine Urine Total Protein Crossmatch 08/13/18 08/13/18 08/13/18 00:50 02:25 05:34 WBC RBC Hgb Hct MCHC RDW [place] # Seg Neutrophils % Lymphocytes % (Manual) Seg Neutrophils # Lymphocytes # (Manual) PT INR APTT D-Dimer Heparin Anti-Xa Level POC ABG pH 7.503 H POC ABG pCO2 POC ABG pO2 253 H Sodium Potassium Chloride Carbon Dioxide BUN Creatinine Glucose POC Glucose Lactic Acid Calcium Magnesium AST Alkaline Phosphatase Total Creatine Kinase 311 H CK-MB (CK-2) 10.4 H Troponin T 0.283 H* D C-Reactive Protein Total Protein Albumin Cholesterol LDL Cholesterol Direct HDL Cholesterol Urine WBC (Auto) > 182.0 H Urine Creatinine Urine Total Protein Crossmatch 08/13/18 08/13/18 08/13/18 06:35 10:10 10:10 WBC RBC Hgb Hct MCHC RDW [place] # Seg Neutrophils % Lymphocytes % (Manual) Seg Neutrophils # Lymphocytes # (Manual) PT INR APTT D-Dimer Heparin Anti-Xa Level POC ABG pH 7.554 H POC ABG pCO2 33.5 L POC ABG pO2 220 H Sodium 158 H Potassium Chloride 117.1 H Carbon Dioxide BUN 53 H Creatinine 2.0 H Glucose 247 H POC Glucose Lactic Acid Calcium 8.2 L Magnesium AST Alkaline Phosphatase Total Creatine Kinase 309 H CK-MB (CK-2) 4.1 H Troponin T 0.470 H* D C-Reactive Protein Total Protein Albumin Cholesterol LDL Cholesterol Direct HDL Cholesterol Urine WBC (Auto) Urine Creatinine Urine Total Protein Crossmatch 08/13/18 08/13/18 08/13/18 12:53 12:53 17:55 WBC RBC Hgb Hct MCHC RDW [place] # Seg Neutrophils % Lymphocytes % (Manual) Seg Neutrophils # Lymphocytes # (Manual) PT INR APTT D-Dimer Heparin Anti-Xa Level POC ABG pH POC ABG pCO2 POC ABG pO2 Sodium Potassium Chloride Carbon Dioxide BUN Creatinine Glucose POC Glucose 308 H Lactic Acid 2.80 H* Calcium Magnesium 2.50 H AST Alkaline Phosphatase Total Creatine Kinase CK-MB (CK-2) Troponin T C-Reactive Protein 16.90 H Total Protein Albumin Cholesterol LDL Cholesterol Direct HDL Cholesterol Urine WBC (Auto) Urine Creatinine Urine Total Protein Crossmatch 08/13/18 08/13/18 08/13/18 20:07 21:16 23:17 WBC RBC Hgb Hct MCHC RDW [place] # Seg Neutrophils % Lymphocytes % (Manual) Seg Neutrophils # Lymphocytes # (Manual) PT INR APTT D-Dimer 2742.50 H Heparin Anti-Xa Level POC ABG pH 7.483 H POC ABG pCO2 30.8 L POC ABG pO2 150 H Sodium Potassium Chloride Carbon Dioxide BUN Creatinine Glucose POC Glucose 245 H Lactic Acid Calcium Magnesium AST Alkaline Phosphatase Total Creatine Kinase CK-MB (CK-2) Troponin T C-Reactive Protein Total Protein Albumin Cholesterol LDL Cholesterol Direct HDL Cholesterol Urine WBC (Auto) Urine Creatinine Urine Total Protein Crossmatch 08/14/18 08/14/18 08/14/18 04:03 04:03 04:56 WBC 18.2 H RBC 2.62 L Hgb 7.3 L Hct 24.5 L MCHC RDW 18.9 H [place] # 1.2 H Seg Neutrophils % 79.4 H Lymphocytes % (Manual) Seg Neutrophils # 14.5 H Lymphocytes # (Manual) PT INR APTT D-Dimer Heparin Anti-Xa Level POC ABG pH POC ABG pCO2 33.5 L POC ABG pO2 153 H Sodium 152 H Potassium 3.4 L Chloride 113.8 H Carbon Dioxide BUN 72 H Creatinine 2.7 H Glucose 239 H POC Glucose Lactic Acid Calcium 7.6 L Magnesium AST 50 H Alkaline Phosphatase 219 H Total Creatine Kinase CK-MB (CK-2) Troponin T 0.409 H* C-Reactive Protein Total Protein 6.2 L Albumin 1.9 L Cholesterol LDL Cholesterol Direct HDL Cholesterol Urine WBC (Auto) Urine Creatinine Urine Total Protein Crossmatch 08/14/18 08/14/18 08/14/18 05:18 13:38 15:35 WBC RBC Hgb Hct MCHC RDW [place] # Seg Neutrophils % Lymphocytes % (Manual) Seg Neutrophils # Lymphocytes # (Manual) PT INR APTT D-Dimer Heparin Anti-Xa Level POC ABG pH POC ABG pCO2 POC ABG pO2 Sodium 150 H Potassium 3.2 L Chloride 114.5 H Carbon Dioxide BUN 69 H Creatinine 2.3 H Glucose 247 H POC Glucose 242 H 296 H Lactic Acid Calcium 7.2 L Magnesium AST Alkaline Phosphatase Total Creatine Kinase CK-MB (CK-2) Troponin T C-Reactive Protein Total Protein Albumin Cholesterol LDL Cholesterol Direct HDL Cholesterol Urine WBC (Auto) Urine Creatinine Urine Total Protein Crossmatch 08/14/18 08/14/18 08/14/18 17:01 17:20 23:47 WBC RBC Hgb Hct MCHC RDW [place] # Seg Neutrophils % Lymphocytes % (Manual) Seg Neutrophils # Lymphocytes # (Manual) PT INR APTT D-Dimer Heparin Anti-Xa Level POC ABG pH POC ABG pCO2 POC ABG pO2 Sodium Potassium Chloride Carbon Dioxide BUN Creatinine Glucose POC Glucose 261 H 280 H Lactic Acid Calcium Magnesium AST Alkaline Phosphatase Total Creatine Kinase CK-MB (CK-2) Troponin T C-Reactive Protein Total Protein Albumin Cholesterol LDL Cholesterol Direct HDL Cholesterol Urine WBC (Auto) Urine Creatinine 60.9 H Urine Total Protein 64 H Crossmatch 08/15/18 08/15/18 08/15/18 04:05 04:05 04:05 WBC RBC Hgb 6.3 L Hct 19.7 L* MCHC RDW [place] # Seg Neutrophils % Lymphocytes % (Manual) Seg Neutrophils # Lymphocytes # (Manual) PT INR APTT D-Dimer Heparin Anti-Xa Level 0.17 L POC ABG pH POC ABG pCO2 POC ABG pO2 Sodium 146 H Potassium 3.0 L Chloride 110.6 H Carbon Dioxide BUN 64 H Creatinine 2.2 H Glucose 231 H POC Glucose Lactic Acid Calcium 7.1 L Magnesium AST Alkaline Phosphatase Total Creatine Kinase CK-MB (CK-2) Troponin T C-Reactive Protein Total Protein Albumin Cholesterol LDL Cholesterol Direct HDL Cholesterol Urine WBC (Auto) Urine Creatinine Urine Total Protein Crossmatch 08/15/18 08/15/18 08/15/18 05:21 05:26 06:35 WBC RBC Hgb Hct MCHC RDW [place] # Seg Neutrophils % Lymphocytes % (Manual) Seg Neutrophils # Lymphocytes # (Manual) PT INR APTT 79.0 H* D-Dimer Heparin Anti-Xa Level POC ABG pH 7.494 H POC ABG pCO2 POC ABG pO2 155 H Sodium Potassium Chloride Carbon Dioxide BUN Creatinine Glucose POC Glucose 271 H Lactic Acid Calcium Magnesium AST Alkaline Phosphatase Total Creatine Kinase CK-MB (CK-2) Troponin T C-Reactive Protein Total Protein Albumin Cholesterol LDL Cholesterol Direct HDL Cholesterol Urine WBC (Auto) Urine Creatinine Urine Total Protein Crossmatch 08/15/18 08/15/18 08/15/18 12:10 15:31 17:27 WBC RBC Hgb Hct MCHC RDW [place] # Seg Neutrophils % Lymphocytes % (Manual) Seg Neutrophils # Lymphocytes # (Manual) PT INR APTT D-Dimer Heparin Anti-Xa Level POC ABG pH POC ABG pCO2 POC ABG pO2 Sodium Potassium Chloride Carbon Dioxide BUN Creatinine Glucose POC Glucose 301 H 287 H Lactic Acid Calcium Magnesium AST Alkaline Phosphatase Total Creatine Kinase CK-MB (CK-2) Troponin T C-Reactive Protein Total Protein Albumin Cholesterol LDL Cholesterol Direct HDL Cholesterol Urine WBC (Auto) Urine Creatinine Urine Total Protein Crossmatch See Detail 08/15/18 08/15/18 08/16/18 21:41 23:45 04:13 WBC RBC Hgb Hct MCHC RDW [place] # Seg Neutrophils % Lymphocytes % (Manual) Seg Neutrophils # Lymphocytes # (Manual) PT INR APTT D-Dimer Heparin Anti-Xa Level 0.19 L POC ABG pH POC ABG pCO2 32.1 L POC ABG pO2 107 H Sodium Potassium Chloride Carbon Dioxide BUN Creatinine Glucose POC Glucose 163 H Lactic Acid Calcium Magnesium AST Alkaline Phosphatase Total Creatine Kinase CK-MB (CK-2) Troponin T C-Reactive Protein Total Protein Albumin Cholesterol LDL Cholesterol Direct HDL Cholesterol Urine WBC (Auto) Urine Creatinine Urine Total Protein Crossmatch 08/16/18 08/16/18 08/16/18 04:50 05:28 11:30 WBC RBC 2.67 L Hgb 8.1 L Hct 23.4 L MCHC 35 H RDW 18.3 H [place] # Seg Neutrophils % Lymphocytes % (Manual) Seg Neutrophils # Lymphocytes # (Manual) PT INR APTT D-Dimer Heparin Anti-Xa Level 0.19 L POC ABG pH POC ABG pCO2 POC ABG pO2 Sodium Potassium Chloride Carbon Dioxide BUN Creatinine Glucose POC Glucose 141 H Lactic Acid Calcium Magnesium AST Alkaline Phosphatase Total Creatine Kinase CK-MB (CK-2) Troponin T C-Reactive Protein Total Protein Albumin Cholesterol LDL Cholesterol Direct HDL Cholesterol Urine WBC (Auto) Urine Creatinine Urine Total Protein Crossmatch 08/16/18 08/16/18 08/16/18 11:30 12:00 12:01 WBC RBC Hgb Hct MCHC RDW [place] # Seg Neutrophils % Lymphocytes % (Manual) Seg Neutrophils # Lymphocytes # (Manual) PT INR APTT D-Dimer Heparin Anti-Xa Level 0.15 L POC ABG pH POC ABG pCO2 POC ABG pO2 Sodium Potassium Chloride 107.8 H Carbon Dioxide 21 L BUN 47 H Creatinine 1.6 H Glucose 221 H POC Glucose 267 H Lactic Acid Calcium 6.9 L Magnesium AST Alkaline Phosphatase Total Creatine Kinase CK-MB (CK-2) Troponin T C-Reactive Protein Total Protein Albumin Cholesterol LDL Cholesterol Direct HDL Cholesterol Urine WBC (Auto) Urine Creatinine Urine Total Protein Crossmatch Chest x-ray: image reviewed (elevated right hemidiaphram; no focal infiltrate) Allied health notes reviewed: nursing
--- NOTE | 2018-08-16 19:56 | Progress Note ---
Assessment and Plan Pt presented s/p multiple cardiac arrests with prologned down time - per neurology, pt will likely not recover. Pt's initial ECG was suggestive of ischemia/infarction, repeat ECG shows resolution of ST changes, Ian elevated. Will continue with conservative cardiac management at this time given overall poor prognosis. Cont heparin gtt and monitor H/H. Cont ASA and statin, consider addition of BB if BPs permit. 08/15/2018>No significant change in patient's status,cardiac status is stable.Continue supportive treatment.Labs reviewed .HgB and K+ were noted to be low. 08/16/2018>no significant change in patient's clinical status,continue supportive rx. Subjective Date of service: 08/16/18 Principal diagnosis: Acute hypoxemic resp failure; S/P cardiac arrest; Seizures; DM II; H/O CVA Interval history: Patient is intubated,comfortable.in no acute distress,monitor showing S.R. Objective Vital Signs Temp Pulse Resp BP Pulse Ox 08/16/18 19:21 71 20 127/56 100 08/16/18 19:11 69 18 115/54 100 08/16/18 19:00 69 18 115/54 100 08/16/18 18:51 69 18 127/56 100 08/16/18 18:40 69 19 127/56 100 08/16/18 18:30 68 19 127/56 100 08/16/18 18:21 68 20 139/56 100 08/16/18 18:11 68 21 139/56 100 08/16/18 18:01 70 18 139/56 100 08/16/18 17:51 68 19 144/62 100 08/16/18 17:41 69 21 144/62 100 08/16/18 17:30 69 20 134/60 100 08/16/18 17:21 67 23 139/62 100 08/16/18 17:11 67 15 139/62 100 08/16/18 17:00 70 20 144/62 100 08/16/18 16:51 70 19 134/62 08/16/18 16:41 81 29 H 134/62 100 08/16/18 16:30 79 19 139/62 100 08/16/18 16:21 79 21 134/62 100 08/16/18 16:11 78 17 134/62 100 08/16/18 16:00 79 17 134/62 100 05/19/19 15:51 79 17 136/61 100 05/19/19 15:41 78 19 136/61 100 05/19/19 15:30 77 20 136/61 100 05/19/19 15:21 76 24 128/56 100 05/19/19 15:11 75 19 128/56 100 05/19/19 15:00 74 19 128/56 100 05/19/19 14:51 74 18 123/59 100 05/19/19 14:41 72 20 123/59 100 05/19/19 14:30 71 20 123/59 99 05/19/19 14:21 71 20 136/55 99 05/19/19 14:11 72 20 136/55 100 05/19/19 14:00 71 22 129/58 98 05/19/19 13:51 73 21 136/55 99 05/19/19 13:41 72 20 136/55 100 05/19/19 13:30 71 21 136/55 98 05/19/19 13:21 70 21 131/55 100 05/19/19 13:11 74 23 131/55 100 05/19/19 13:00 65 21 125/54 99 05/19/19 12:51 65 20 131/55 100 05/19/19 12:41 67 19 131/55 98 05/19/19 12:30 72 18 131/55 96 05/19/19 12:21 67 17 134/56 98 05/19/19 12:11 66 21 134/56 98 05/19/19 12:00 66 18 131/53 96 05/19/19 11:51 66 21 126/52 99 05/19/19 11:47 67 100 05/19/19 11:41 65 20 126/52 99 05/19/19 11:30 65 21 126/52 96 05/19/19 11:21 65 22 134/56 99 05/19/19 11:11 65 22 134/56 100 05/19/19 11:00 67 17 134/56 92 05/19/19 10:51 66 25 H 113/52 100 05/19/19 10:41 66 20 113/52 100 05/19/19 10:30 70 18 113/52 100 05/19/19 10:21 68 18 127/53 100 05/19/19 10:11 67 21 127/53 100 05/19/19 10:00 67 21 127/53 100 05/19/19 09:51 67 22 121/53 100 05/19/19 09:41 67 22 121/53 100 05/19/19 09:30 66 24 121/53 100 05/19/19 09:21 65 25 H 126/55 100 05/19/19 09:11 65 22 126/55 100 05/19/19 09:00 66 23 126/55 100 05/19/19 08:51 64 24 121/53 100 05/19/19 08:41 96.9 F L 63 21 121/53 100 05/19/19 08:30 64 22 121/53 99 05/19/19 08:21 64 24 115/50 100 05/19/19 08:11 64 24 115/50 05/19/19 08:00 64 24 115/50 95 05/19/19 07:51 64 24 117/53 05/19/19 07:41 66 24 117/53 05/19/19 07:30 65 23 117/53 97 05/19/19 07:21 66 24 113/52 100 05/19/19 07:11 67 20 113/52 100 05/19/19 07:00 68 23 113/52 97 05/19/19 06:51 69 24 114/51 100 05/19/19 06:41 67 22 114/51 100 05/19/19 06:30 69 23 114/51 96 05/19/19 06:21 67 25 H 124/51 100 05/19/19 06:11 68 22 124/51 100 05/19/19 06:00 69 21 124/51 96 05/19/19 05:51 69 22 123/53 100 05/19/19 05:41 69 24 123/53 100 05/19/19 05:30 68 23 123/53 96 05/19/19 05:21 68 24 121/55 99 05/19/19 05:11 69 21 121/55 99 05/19/19 05:00 69 24 121/55 95 05/19/19 04:51 69 26 H 116/52 99 05/19/19 04:41 69 26 H 120/54 99 05/19/19 04:30 70 25 H 120/54 05/19/19 04:21 72 25 H 116/52 100 05/19/ 04:11 70 25 H 116/52 100 05/19/19 04:08 70 116/52 95 05/19/ 04:00 70 25 H 116/52 100 05/19/ 03:51 69 26 H 124/56 100 05/19/19 03:49 98.9 F 05 03:41 68 25 H 124/56 100 05/19/19 03:30 68 25 H 124/56 05/19/19 03:21 68 22 116/55 100 05/19/ 03:11 67 25 H 125/55 100 05/19/ 03:00 67 25 H 125/55 05/19/19 02:51 69 24 123/54 100 05/19/ 02:41 68 26 H 116/55 100 05/ 02:30 68 25 H 116/55 05// 02:21 70 25 H 123/54 100 05// 02:11 72 28 H 123/54 100 05/ 02:00 71 23 121/52 100 05/19/19 01:51 73 24 112/52 100 05/19/19 01:41 70 23 121/52 100 05//19 01:30 70 25 H 121/52 100 05// 01:21 71 23 112/52 100 05//19 01:11 70 23 112/52 100 05//19 01:00 71 25 H 112/52 100 05/19/ 00:51 70 25 H 120/51 100 05/19/19 00:41 71 25 H 111/49 100 05/19/19 00:30 70 26 H 111/49 99 05/19/19 00:21 70 24 120/51 100 05/19/19 00:11 70 24 120/51 100 05/19/19 00:00 71 22 120/51 99 05/18/19 23:57 98.7 F 05/18/19 23:51 70 23 107/50 100 05/18/19 23:41 70 24 107/50 100 05/18/19 23:31 69 28 H 100 05/18/19 23:30 69 27 H 113/46 100 05/18/19 23:20 69 26 H 113/46 100 05/18/19 23:16 69 29 H 113/46 100 05/18/19 23:11 70 27 H 113/46 100 05/18/19 23:00 68 19 113/46 100 05/18/19 22:51 68 21 117/54 100 05/18/19 22:41 70 28 H 117/54 100 05/18/19 22:30 68 26 H 124/49 100 05/18/19 22:21 68 29 H 112/50 100 05/18/19 22:11 69 25 H 112/50 100 05/18/19 22:00 69 24 117/54 100 05/18/19 21:51 69 28 H 104/50 100 05/18/19 21:41 69 27 H 104/50 100 05/18/19 21:30 69 26 H 112/50 100 05/18/19 21:24 98.6 F 69 26 H 112/50 100 05/18/19 21:20 70 25 H 107/44 100 05/18/19 21:11 70 23 104/50 100 05/18/19 21:01 69 28 H 104/50 100 05/18/19 20:54 97.6 F 69 28 H 104/50 100 05/18/19 20:51 68 27 H 107/44 100 05/18/19 20:41 68 26 H 107/44 100 05/18/19 20:31 68 28 H 107/44 100 05/18/19 20:24 97.6 F 69 27 H 107/44 100 05/18/19 20:21 69 27 H 107/44 100 05/18/19 20:11 68 27 H 107/44 100 05/18/19 20:03 70 97/47 100 05/18/19 20:01 70 28 H 107/44 100 05/18/19 20:00 97.9 F 100 05/18/19 19:54 97.9 F 68 31 H 97/47 100 - Physical Examination General: Other (intubated, sedated, nonresponsive) Neck: Positive: trachea midline Cardiac: Positive: Regular Rhythm Neuro: Positive: Other (intubated, sedated, nonresponsive) Abdomen: Positive: Unremarkable Extremities: Absent: edema - Labs and Meds CBC 08/16/18 Range/Units 11:30 WBC 8.5 (4.5-11.0) K/mm3 RBC 2.67 L (3.65-5.03) M/mm3 Hgb 8.1 L (11.8-15.2) gm/dl Hct 23.4 L (35.5-45.6) % Plt Count 208 (140-440) K/mm3 Comprehensive Metabolic Panel 08/16/18 Range/Units 11:30 Sodium 141 (137-145) mmol/L Potassium 3.6 (3.6-5.0) mmol/L Chloride 107.8 H (98-107) mmol/L Carbon Dioxide 21 L (22-30) mmol/L BUN 47 H (9-20) mg/dL Creatinine 1.6 H (0.8-1.5) mg/dL Glucose 221 H (75-100) mg/dL Calcium 6.9 L (8.4-10.2) mg/dL - Imaging and Cardiology EKG: report reviewed, image reviewed Echo: report reviewed (GLORIA done 05/12/2018 showed EF 60-65%, no thromcus, negative bubble study, mild TR, mild MR. TTE done 05/08/2018 showed EF 60%, mild LVH, grade 1 diastolic dysfunction, negative bubble study. ) - EKG Sinus rhythms and dysrhythmias: sinus tachycardia Repolarization changes or abnormalities: ST or T wave suggestive of ischemia - Allied health notes Allied health notes reviewed: nursing
[2018-08-17] MEDS: HEPARIN/ 0.45% NACL-25,000 UNIT/500 ML 25,000 UNIT/500 ML BAG IV SCH (00:16)
[2018-08-17] MEDS: HumaLOG SUB-Q SCH ×4 (00:20→17:58)
[2018-08-17] MEDS: ZOSYN/NS 2.25 GM/50ML 2.25 GM/50 ML BAG IV SCH ×3 (00:20→15:38)
[2018-08-17] MEDS: ARTIFICIAL TEARS OPHTH OINT OU PRN (00:41)
--- NOTE | 2018-08-17 05:27 | XRay Report ---
PROCEDURE: XR CHEST 1V AP TECHNIQUE: Chest radiograph single view. HISTORY: follow up respiratory failure COMPARISONS: None . FINDINGS: Heart: Normal. Mediastinum/Vessels: Normal. Lungs/Pleural space: There is atelectasis at the right lung base. There are no infiltrates, effusion s or pneumothoraces.. Bony thorax: No acute osseous abnormality. Life support devices: The NG tube is in the mid trachea. There is a right-sided PICC line. The tip is in the superior vena cava.. IMPRESSION: The heart size is normal. There is atelectasis at the right lung base. There are no infiltrates, effusions or pneumothoraces. The NG tube is in the mid trachea. There is a right-sided PICC line. The tip is in the superior vena cava. This document is electronically signed by Juan Redd MD., Aug 17 2018 05:25:37 AM ET
[2018-08-17 06:17] LABS: Hematocrit 24.3 % (35.5-45.6); Hemoglobin 8.2 gm/dl (11.8-15.2)
--- NOTE | 2018-08-17 08:01 | Progress Note ---
Assessment and Plan Assessment and plan: 69-year-old man with a history of chronic respiratory failure who is status post trach, per his family the trach was being downsized -The patient developed respiratory distress at home, EMS was called, EMS was trying to back 3 and refusing some obstruction. He was pulseless 2. Received CPR and had return of spontaneous circulation 2. Upon arrival in the ER the patient was again noted to not have a pulse he received CPR, low volumes on the tracheostomy which is suspicious for a leak. Therefore the patient was orally intubated. He was found to have a right pneumothorax and received percutaneous chest tube sp cardiac arrest x3 Acute on chronic respiratory failure on mechanical ventilation less than 96 hours Trach has been removed patient is orally intubated, continue ventilator management per pulmonology Right pneumothorax Status post chest tube, mgt per pulmonology Anoxic brain injury and status epilepticus Patient was noted to be having seizures, he received Ativan and Keppra, neurology consult appreciated, poor prognosis, poor likelihood of recovery, suspect brain , fup brain flow scan . Hypernatremia/free water deficits Continue free water via G-tube, sp hypotonic IV solution acute kidney injury likely due to ATN Nephrology consult, continue IV fluid, avoid renal toxic agents Acute TX -Likely a type II TX Elevated troponin unit after patient has had cardiac arrest 3, expected out come, cardiology consult appreciated, continue heparin drip, aspirin and statin -Patient would have to clinically improved undergo any coronary risk stratification shock, likely central in origin cont pressors as needed Severe malnutrition Dietitian consult, continue tube feedings UTI/sepsis Continue antibiotics, follow-up urine cultures type 2 dm with persistent hyperglycemia cont insulins anemia sp transfusion Urinary retention continue douglass, do not remove DVT prophylaxis; patient is fully anticoagulated on heparin drip Discussed with family, poor prognosis, they are still hopeful, awaiting NM brain flow scan History Interval history: Patient remains intubated no shaking, no seizures He remains nonresponsive No fevers No vomiting Hospitalist Physical - Physical exam Narrative exam: General.: Obtunded HEENT: Moist mucous membranes, no lymphadenopathy Neck: supple, dressing noted over his neck, trach has been removed Cardiac: S1-S2 heard Lungs: clear to auscultation bilaterally Abdomen: soft , nondistended, bowel sounds positive Extremities: no edema clubbing or cyanosis Skin: Dressing noted on lower extremities Neurologic: upward gaze, pupils are sluggish, patient is lacking most reflexes, no gag refrlex, he is nonresponsive to painful stimuli, extremities are flaccid Psych: Obtunded - Constitutional Vitals: Temp Pulse Resp BP Pulse Ox 99.0 F 72 18 136/60 100 08/17/18 04:00 08/17/18 06:11 08/17/18 06:11 08/17/18 06:11 08/17/18 06:11 General appearance: Present: other (twitching, nonresponsive, intubated) Results - Labs CBC & Chem 7: 08/17/18 04:55 08/16/18 11:30 Labs: Laboratory Last Values WBC 8.5 K/mm3 (4.5-11.0) 08/16/18 11:30 RBC 2.67 M/mm3 (3.65-5.03) L 08/16/18 11:30 Hgb 8.2 gm/dl (11.8-15.2) L 08/17/18 04:55 Hct 24.3 % (35.5-45.6) L 08/17/18 04:55 MCV 88 fl (84-94) 08/16/18 11:30 MCH 30 pg (28-32) 08/16/18 11:30 MCHC 35 % (32-34) H 08/16/18 11:30 RDW 18.3 % (13.2-15.2) H 08/16/18 11:30 Plt Count 233 K/mm3 (140-440) 08/17/18 04:55 Lymph % (Auto) 13.6 % (13.4-35.0) 08/14/18 04:03 [place] % (Auto) 6.4 % (0.0-7.3) 08/14/18 04:03 Eos % (Auto) 0.1 % (0.0-4.3) 08/14/18 04:03 Baso % (Auto) 0.5 % (0.0-1.8) 08/14/18 04:03 Lymph # 2.5 K/mm3 (1.2-5.4) 08/14/18 04:03 [place] # 1.2 K/mm3 (0.0-0.8) H 08/14/18 04:03 Eos # 0.0 K/mm3 (0.0-0.4) 08/14/18 04:03 Baso # 0.1 K/mm3 (0.0-0.1) 08/14/18 04:03 Add Manual Diff Complete 08/12/18 21:44 Total Counted 100 08/12/18 21:44 Seg Neutrophils % 79.4 % (40.0-70.0) H 08/14/18 04:03 Seg Neuts % (Manual) 44.0 % (40.0-70.0) 08/12/18 21:44 0 % 08/12/18 21:44 48.0 % (13.4-35.0) H 08/12/18 21:44 Reactive Lymphs % (Man) 0 % 08/12/18 21:44 2.0 % (0.0-7.3) 08/12/18 21:44 1.0 % (0.0-4.3) 08/12/18 21:44 0 % (0.0-1.8) 08/12/18 21:44 1.0 % 08/12/18 21:44 4.0 % 08/12/18 21:44 0 % 08/12/18 21:44 0 % 08/12/18 21:44 Nucleated RBC % Not Reportable 08/12/18 21:44 Seg Neutrophils # 14.5 K/mm3 (1.8-7.7) H 08/14/18 04:03 Seg Neutrophils # Man 6.8 K/mm3 (1.8-7.7) 08/12/18 21:44 Band Neutrophils # 0.0 K/mm3 08/12/18 21:44 7.4 K/mm3 (1.2-5.4) H 08/12/18 21:44 Abs React Lymphs (Man) 0.0 K/mm3 08/12/18 21:44 0.3 K/mm3 (0.0-0.8) 08/12/18 21:44 0.2 K/mm3 (0.0-0.4) 08/12/18 21:44 0.0 K/mm3 (0.0-0.1) 08/12/18 21:44 0.2 K/mm3 08/12/18 21:44 0.6 K/mm3 08/12/18 21:44 0.0 K/mm3 08/12/18 21:44 Blast Cells # 0.0 K/mm3 08/12/18 21:44 WBC Morphology Not Reportable 08/12/18 21:44 Hypersegmented Neuts Not Reportable 08/12/18 21:44 Hyposegmented Neuts Not Reportable 08/12/18 21:44 Hypogranular Neuts Not Reportable 08/12/18 21:44 Not Reportable 08/12/18 21:44 Not Reportable 08/12/18 21:44 Not Reportable 08/12/18 21:44 Not Reportable 08/12/18 21:44 Not Reportable 08/12/18 21:44 Not Reportable 08/12/18 21:44 Consistent w auto 08/12/18 21:44 Not Reportable 08/12/18 21:44 Plt Clumps, EDTA Not Reportable 08/12/18 21:44 Not Reportable 08/12/18 21:44 Not Reportable 08/12/18 21:44 Not Reportable 08/12/18 21:44 Plt Morphology Comment Not Reportable 08/12/18 21:44 RBC Morphology Not Reportable 08/12/18 21:44 Dimorphic RBCs Not Reportable 08/12/18 21:44 Not Reportable 08/12/18 21:44 Not Reportable 08/12/18 21:44 Not Reportable 08/12/18 21:44 Few 08/12/18 21:44 Not Reportable 08/12/18 21:44 Not Reportable 08/12/18 21:44 Not Reportable 08/12/18 21:44 Not Reportable 08/12/18 21:44 Not Reportable 08/12/18 21:44 Not Reportable 08/12/18 21:44 Not Reportable 08/12/18 21:44 Few 08/12/18 21:44 Not Reportable 08/12/18 21:44 Not Reportable 08/12/18 21:44 Not Reportable 08/12/18 21:44 Not Reportable 08/12/18 21:44 Not Reportable 08/12/18 21:44 Not Reportable 08/12/18 21:44 Few 08/12/18 21:44 Acanthocytes (Spur) Not Reportable 08/12/18 21:44 Rouleaux Not Reportable 08/12/18 21:44 Not Reportable 08/12/18 21:44 Not Reportable 08/12/18 21:44 Not Reportable 08/12/18 21:44 Not Reportable 08/12/18 21:44 Hem Pathologist Commnt No 08/12/18 21:44 PT 16.5 Sec. (12.2-14.9) H 08/13/18 00:47 INR 1.25 (0.87-1.13) H 08/13/18 00:47 APTT 79.0 Sec. (24.2-36.6) H* 08/15/18 06:35 2742.50 ng/mlDDU (0-234) H 08/13/18 20:07 Heparin Anti-Xa Level 0.26 U.I./ml (0.3-0.7) L 08/16/18 20:01 POC ABG pH 7.419 (7.35-7.45) 08/17/18 04:29 POC ABG pCO2 32.4 (35-45) L 08/17/18 04:29 POC ABG pO2 108 (80-105) H 08/17/18 04:29 POC ABG HCO3 21.0 (22-26 mml/L) 08/17/18 04:29 POC ABG Total CO2 22 (23-27mmol/L) 08/17/18 04:29 POC ABG O2 Sat 98 08/17/18 04:29 POC ABG Base Excess -3 ((-2) - (+3)mmol/L) 08/17/18 04:29 28 % 08/17/18 04:29 Sodium 141 mmol/L (137-145) 08/16/18 11:30 Potassium 3.6 mmol/L (3.6-5.0) 08/16/18 11:30 Chloride 107.8 mmol/L (98-107) H 08/16/18 11:30 Carbon Dioxide 21 mmol/L (22-30) L 08/16/18 11:30 16 mmol/L 08/16/18 11:30 BUN 47 mg/dL (9-20) H 08/16/18 11:30 1.6 mg/dL (0.8-1.5) H 08/16/18 11:30 Estimated GFR 51 ml/min 08/16/18 11:30 29 % 08/16/18 11:30 Glucose 221 mg/dL (75-100) H 08/16/18 11:30 POC Glucose 268 (70-105) H 08/17/18 05:34 Lactic Acid 2.80 mmol/L (0.7-2.0) H* 08/13/18 12:53 Calcium 6.9 mg/dL (8.4-10.2) L 08/16/18 11:30 Phosphorus 3.90 mg/dL (2.5-4.5) 08/15/18 04:05 Magnesium 2.20 mg/dL (1.7-2.3) 08/15/18 04:05 0.30 mg/dL (0.1-1.2) 08/14/18 04:03 AST 50 units/L (5-40) H 08/14/18 04:03 ALT 55 units/L (7-56) 08/14/18 04:03 219 units/L (35-129) H 08/14/18 04:03 309 units/L (55-170) H 08/13/18 10:10 CK-MB (CK-2) 4.1 ng/mL (0.0-4.0) H 08/13/18 10:10 CK-MB (CK-2) Rel Index 1.3 (0-4) 08/13/18 10:10 0.409 ng/mL (0.00-0.029) H* 08/14/18 04:03 16.90 mg/dL (0.00-1.30) H 08/13/18 12:53 6.2 g/dL (6.3-8.2) L 08/14/18 04:03 1.9 g/dL (3.9-5) L 08/14/18 04:03 0.4 % 08/14/18 04:03 Triglycerides 62 mg/dL (2-149) 08/13/18 00:32 Cholesterol 46 mg/dL (50-199) L 08/13/18 00:32 17 mg/dL (50-130) L 08/13/18 00:32 6 mg/dL (40-59) L 08/13/18 00:32 7.66 % 08/13/18 00:32 Yellow (Yellow) 08/13/18 00:50 Cloudy (Clear) 08/13/18 00:50 7.0 (5.0-7.0) 08/13/18 00:50 Ur Specific [place] 1.025 (1.003-1.030) 08/13/18 00:50 100 mg/dl mg/dL (Negative) 08/13/18 00:50 50 mg/dL (Negative) 08/13/18 00:50 Tr mg/dL (Negative) 08/13/18 00:50 Mod (Negative) 08/13/18 00:50 Neg (Negative) 08/13/18 00:50 Neg (Negative) 08/13/18 00:50 < 2.0 mg/dL (<2.0) 08/13/18 00:50 Ur Leukocyte Esterase Mod (Negative) 08/13/18 00:50 > 182.0 /HPF (0.0-6.0) H 08/13/18 00:50 > 182.0 /HPF (0.0-6.0) 08/13/18 00:50 2+ /HPF (Negative) 08/13/18 00:50 3+ /HPF 08/13/18 00:50 None seen (None Seen) 08/14/18 17:20 60.9 mg/dL (0.1-20.0) H 08/14/18 17:20 32 mmol/L 08/14/18 17:20 64 mg/dL (5-11.8) H 08/14/18 17:20 Presumptive negative 08/12/18 21:30 Presumptive negative 08/12/18 21:30 Ur Barbiturates Screen Presumptive negative 08/12/18 21:30 Ur Phencyclidine Scrn Presumptive negative 08/12/18 21:30 Ur Amphetamines Screen Presumptive negative 08/12/18 21:30 U Benzodiazepines Scrn Presumptive negative 08/12/18 21:30 Presumptive negative 08/12/18 21:30 U Marijuana (THC) Screen Presumptive negative 08/12/18 21:30 Disclamer 08/12/18 21:30 Blood Type O POSITIVE 08/15/18 15:31 Antibody Screen Negative 08/15/18 15:31 Crossmatch See Detail 08/15/18 15:31 Active Medications - Current Medications Current Medications: Generic Name Dose Route Start Last Admin Trade Name Freq PRN Reason Stop Dose Admin Acetaminophen 650 mg 08/13/18 11:40 08/13/18 16:09 Tylenol PO 650 mg Q6H PRN Administration Fever >101 Lipase/Protease/Amylase 1 each 08/13/18 15:[address] 10,500 Unit FEEDTUBE PRN PRN For Clogged Feeding Tube Aspirin 300 mg 08/13/18 12:00 08/16/18 10:50 Aspirin NV 300 mg QDAY LENCHO Administration Atorvastatin Calcium 40 mg 08/14/18 22:00 08/16/18 21:14 Lipitor PO 40 mg QHS LENCHO Administration Dextrose 50 ml 08/13/18 01:34 D50w (25gm) Syringe IV PRN PRN Hypoglycemia Famotidine 20 mg 08/14/18 10:00 08/16/18 10:50 Pepcid IV 20 mg DAILY LENCHO Administration Hydrophilic Ointment 1 applic 08/13/18 12:21 Vaseline Lip Therapy TP Q2HR PRN Dry Lips Heparin Sodium/Sodium Chloride 25,000 unit in 500 mls @ 20 mls/hr 08/13/18 01:00 08/17/18 00:16 Heparin/ 0.45% Nacl-25,000 Unit/500 Ml IV 1,350 units/hr TITRATE LENCHO 27 mls/hr Administration Protocol 1,000 UNITS/HR Norepinephrine 4 mg in 250 mls @ 7.5 mls/hr 08/12/18 21:00 08/14/18 11:06 Levophed Drip 4 Mg/Ns 250 Ml IV 0 mcg/min TITR LENCHO 0 mls/hr Titration Protocol 2 MCG/MIN Propofol 1,000 mg in 100 mls @ 2.177 mls/hr 08/13/18 13:00 08/15/18 06:00 Diprivan 10 Mg/Ml IV 0 mcg/kg/min TITR LENCHO 0 mls/hr Titration Protocol 5 MCG/KG/MIN Piperacillin Sod/Tazobactam Sod 2.25 gm in 50 mls @ 100 mls/hr 08/14/18 12:00 08/17/18 00:20 Zosyn/Ns 2.25 Gm/50ml IV 100 mls/hr Q6HR LENCHO Administration Fentanyl Citrate 2,000 mcg in 100 mls @ 3.629 mls/hr 08/14/18 13:00 Fentanyl Drip Premix IV TITR LENCHO Protocol 1 MCG/KG/HR Insulin Human Lispro 0 unit 08/13/18 06:00 08/17/18 00:20 Humalog SUB-Q 4 unit Q6HR LENCHO Administration Protocol Levetiracetam 1,000 mg 08/13/18 15:00 08/16/18 21:14 Keppra PO 1,000 mg BID LENCHO Administration Multi-Ingred Cream/Lotion/Oil/Oint 1 applic 08/13/18 12:21 08/17/18 00:41 Artificial Tears Ophth Oint OU 1 applic Q4HR PRN Administration Dry Eye(s) Ondansetron HCl 4 mg 08/13/18 01:34 Zofran IV Q8H PRN Nausea And Vomiting Simple Syrup 15 ml 08/13/18 15:55 Simple Syrup FEEDTUBE PRN PRN Hypoglycemia Simple Syrup 30 ml 08/13/18 15:55 Simple Syrup FEEDTUBE PRN PRN Hypoglycemia Sodium Bicarbonate 325 mg 08/13/18 15:55 Sodium Bicarbonate FEEDTUBE PRN PRN For Clogged Feeding Tube Sodium Chloride 10 ml 08/13/18 10:00 08/16/18 10:51 Sodium Chloride Flush Syringe 10 Ml IV 10 ml BID LENCHO Administration Sodium Chloride 10 ml 08/13/18 01:34 Sodium Chloride Flush Syringe 10 Ml IV PRN PRN LINE FLUSH Nutrition/Malnutrition Assess - Dietary Evaluation Nutrition/Malnutrition Findings: Nutrition Notes Start: 08/13/18 15:41 Freq: Status: Active Protocol: Document 08/15/18 14:10 RM (Rec: 08/15/18 14:15 RM [id number]) Nutrition Notes Initial or Follow up Reassessment Current Diagnosis Diabetes Other Pertinent Diagnosis UTI, Hx CVA, PEG, Sacral PU,Hx hydrocephalus, Multiple PU Current Diet Vital 1.2 at 60 ml/hr Labs/Tests Na 146 Pertinent Medications Lasix Height 5 ft 8 in Weight 72.575 kg [place] Body Weight (kg) 70.00 BMI 24.3 Subjective/Other Information Observed Vital 1.2 infusing at 20 ml/hr. Nurse stated that she plans to advance TF to goal. Burn Absent Trauma Absent #1 Nutrition Diagnosis Inadequate oral intake Diagnosis Progress(for reassessment Continues documentation) Is patient on ventilator? Yes Is Patient Ambulatory and/or Out of Bed No REE-([facility]-confined to bed) 8580.912 Calculation Used for Recommendations [facility] Additional Notes Protein Needs: 87-145g (1.2-2g /kg) Fluid Needs: 1 ml/kcal Nutrition Intervention Nutrition Support: Vital 1.2 at 60 ml/hr. Water flush of 250 mls q 4 hrs per MD until hypernatremia resolves Water flush of 100 mls q 4 hrs once hypernatremia resolves. Kcal 1,728 Protein (gm) 108 Fiber (gm) 5 Goal #1 TF tolerance Goal #2 Meet at least 80% of calorie and protein needs via TF Anticipated Discharge Needs: TF Follow-Up By: 08/17/18 Additional Comments Follow for TF at goal, TF tolerance, Na lab
--- NOTE | 2018-08-17 08:14 | Progress Note ---
Subjective Date of service: 08/17/18 Principal diagnosis: Acute hypoxemic resp failure; S/P cardiac arrest; Seizures; DM II; H/O CVA Interval history: as soon as the radiologist issues formal reading on cerebral blood flow study I will date and time note thanks Objective - Vital Sign Vital Signs - 12hr 08/16/18 08/16/18 08/16/18 20:21 20:30 20:41 Temperature Pulse Rate 70 70 69 Respiratory 22 18 17 Rate Blood Pressure 128/59 129/55 129/55 O2 Sat by Pulse 100 99 100 Oximetry 08/16/18 08/16/18 08/16/18 20:51 21:00 21:11 Temperature Pulse Rate 69 70 70 Respiratory 22 22 20 Rate Blood Pressure 128/59 120/55 120/55 O2 Sat by Pulse 100 100 100 Oximetry 08/16/18 08/16/18 08/16/18 21:21 21:30 21:41 Temperature Pulse Rate 71 69 72 Respiratory 19 17 20 Rate Blood Pressure 120/55 129/54 129/54 O2 Sat by Pulse 100 99 100 Oximetry 08/16/18 08/16/18 08/16/18 21:51 22:00 22:11 Temperature Pulse Rate 70 72 71 Respiratory 18 19 18 Rate Blood Pressure 129/54 130/58 130/58 O2 Sat by Pulse 100 99 100 Oximetry 08/16/18 08/16/18 08/16/18 22:21 22:30 22:41 Temperature Pulse Rate 70 71 71 Respiratory 21 18 19 Rate Blood Pressure 130/58 129/56 129/56 O2 Sat by Pulse 100 99 100 Oximetry 08/16/18 08/16/18 08/16/18 22:51 23:00 23:11 Temperature Pulse Rate 68 69 71 Respiratory 24 19 25 H Rate Blood Pressure 129/56 128/55 128/55 O2 Sat by Pulse 100 99 100 Oximetry 08/16/18 08/16/18 08/16/18 23:21 23:31 23:41 Temperature Pulse Rate 70 69 70 Respiratory 20 19 22 Rate Blood Pressure 128/55 131/55 131/55 O2 Sat by Pulse 100 98 100 Oximetry 08/16/18 08/17/18 08/17/18 23:51 00:00 00:09 Temperature 98.9 F Pulse Rate 70 69 70 Respiratory 24 21 21 Rate Blood Pressure 131/55 128/55 131/57 O2 Sat by Pulse 100 100 100 Oximetry 08/17/18 08/17/18 08/17/18 00:10 00:21 00:30 Temperature Pulse Rate 70 70 70 Respiratory 21 21 20 Rate Blood Pressure 131/55 131/57 130/55 O2 Sat by Pulse 100 100 99 Oximetry 08/17/18 08/17/18 08/17/18 00:41 00:51 01:00 Temperature Pulse Rate 69 69 70 Respiratory 21 21 20 Rate Blood Pressure 130/55 131/57 131/55 O2 Sat by Pulse 100 100 99 Oximetry 08/17/18 08/17/18 08/17/18 01:11 01:21 01:30 Temperature Pulse Rate 70 74 72 Respiratory 21 21 18 Rate Blood Pressure 131/55 131/55 133/59 O2 Sat by Pulse 100 100 99 Oximetry 08/17/18 08/17/18 08/17/18 01:41 01:51 02:00 Temperature Pulse Rate 70 70 71 Respiratory 23 20 17 Rate Blood Pressure 133/59 133/59 130/54 O2 Sat by Pulse 100 100 98 Oximetry 08/17/18 08/17/18 08/17/18 02:11 02:21 02:30 Temperature Pulse Rate 72 70 71 Respiratory 16 18 18 Rate Blood Pressure 130/54 130/54 132/57 O2 Sat by Pulse 100 100 98 Oximetry 08/17/18 08/17/18 08/17/18 02:41 02:51 03:00 Temperature Pulse Rate 72 70 71 Respiratory 22 19 18 Rate Blood Pressure 132/57 132/57 132/56 O2 Sat by Pulse 100 100 98 Oximetry 08/17/18 08/17/18 08/17/18 03:11 03:21 03:30 Temperature Pulse Rate 71 72 71 Respiratory 22 21 17 Rate Blood Pressure 132/56 132/56 131/55 O2 Sat by Pulse 100 100 98 Oximetry 08/17/18 08/17/18 08/17/18 03:41 03:51 04:00 Temperature 99.0 F Pulse Rate 72 71 71 Respiratory 16 18 16 Rate Blood Pressure 131/55 131/55 144/58 O2 Sat by Pulse 100 100 98 Oximetry 08/17/18 08/17/18 08/17/18 04:11 04:21 04:29 Temperature Pulse Rate 72 73 72 Respiratory 16 20 Rate Blood Pressure 144/58 144/58 144/58 O2 Sat by Pulse 100 100 100 Oximetry 08/17/18 08/17/18 08/17/18 04:30 04:41 04:51 Temperature Pulse Rate 72 73 73 Respiratory 17 16 16 Rate Blood Pressure 134/54 134/54 134/54 O2 Sat by Pulse 98 100 100 Oximetry 08/17/18 08/17/18 08/17/18 05:00 05:11 05:21 Temperature Pulse Rate 71 71 71 Respiratory 16 17 17 Rate Blood Pressure 139/57 139/57 139/57 O2 Sat by Pulse 100 100 100 Oximetry 08/17/18 08/17/18 08/17/18 05:30 05:41 05:51 Temperature Pulse Rate 72 72 72 Respiratory 18 22 16 Rate Blood Pressure 137/58 137/58 137/58 O2 Sat by Pulse 100 100 100 Oximetry 08/17/18 08/17/18 06:00 06:11 Temperature Pulse Rate 76 72 Respiratory 19 18 Rate Blood Pressure 136/60 136/60 O2 Sat by Pulse 100 100 Oximetry - Laboratory Findings CBC and BMP: 08/17/18 04:55 08/16/18 11:30 Abnormal Lab Findings: Abnormal Labs 08/12/18 08/12/18 08/12/18 21:44 21:44 21:44 WBC 15.5 H RBC 3.12 L Hgb 8.8 L Hct 28.9 L MCHC 31 L RDW 19.5 H Weber # Seg Neutrophils % Lymphocytes % (Manual) 48.0 H Seg Neutrophils # Lymphocytes # (Manual) 7.4 H PT 17.8 H INR 1.37 H APTT D-Dimer Heparin Anti-Xa Level POC ABG pH POC ABG pCO2 POC ABG pO2 Sodium 159 H Potassium Chloride 118.5 H Carbon Dioxide BUN 34 H Creatinine Glucose 161 H POC Glucose Lactic Acid Calcium Magnesium AST Alkaline Phosphatase Total Creatine Kinase CK-MB (CK-2) Troponin T 0.105 H* C-Reactive Protein Total Protein Albumin Cholesterol LDL Cholesterol Direct HDL Cholesterol Urine WBC (Auto) Urine Creatinine Urine Total Protein Crossmatch 08/13/18 08/13/18 08/13/18 00:32 00:47 00:47 WBC RBC Hgb 9.2 L Hct 29.6 L MCHC RDW Weber # Seg Neutrophils % Lymphocytes % (Manual) Seg Neutrophils # Lymphocytes # (Manual) PT 16.5 H INR 1.25 H APTT 37.3 H D-Dimer Heparin Anti-Xa Level POC ABG pH POC ABG pCO2 POC ABG pO2 Sodium Potassium Chloride Carbon Dioxide BUN Creatinine Glucose POC Glucose Lactic Acid Calcium Magnesium AST Alkaline Phosphatase Total Creatine Kinase 211 H CK-MB (CK-2) 7.7 H Troponin T 0.169 H* D C-Reactive Protein Total Protein Albumin Cholesterol 46 L LDL Cholesterol Direct 17 L HDL Cholesterol 6 L Urine WBC (Auto) Urine Creatinine Urine Total Protein Crossmatch 08/13/18 08/13/18 08/13/18 00:50 02:25 05:34 WBC RBC Hgb Hct MCHC RDW Weber # Seg Neutrophils % Lymphocytes % (Manual) Seg Neutrophils # Lymphocytes # (Manual) PT INR APTT D-Dimer Heparin Anti-Xa Level POC ABG pH 7.503 H POC ABG pCO2 POC ABG pO2 253 H Sodium Potassium Chloride Carbon Dioxide BUN Creatinine Glucose POC Glucose Lactic Acid Calcium Magnesium AST Alkaline Phosphatase Total Creatine Kinase 311 H CK-MB (CK-2) 10.4 H Troponin T 0.283 H* D C-Reactive Protein Total Protein Albumin Cholesterol LDL Cholesterol Direct HDL Cholesterol Urine WBC (Auto) > 182.0 H Urine Creatinine Urine Total Protein Crossmatch 08/13/18 08/13/18 08/13/18 06:35 10:10 10:10 WBC RBC Hgb Hct MCHC RDW Weber # Seg Neutrophils % Lymphocytes % (Manual) Seg Neutrophils # Lymphocytes # (Manual) PT INR APTT D-Dimer Heparin Anti-Xa Level POC ABG pH 7.554 H POC ABG pCO2 33.5 L POC ABG pO2 220 H Sodium 158 H Potassium Chloride 117.1 H Carbon Dioxide BUN 53 H Creatinine 2.0 H Glucose 247 H POC Glucose Lactic Acid Calcium 8.2 L Magnesium AST Alkaline Phosphatase Total Creatine Kinase 309 H CK-MB (CK-2) 4.1 H Troponin T 0.470 H* D C-Reactive Protein Total Protein Albumin Cholesterol LDL Cholesterol Direct HDL Cholesterol Urine WBC (Auto) Urine Creatinine Urine Total Protein Crossmatch 08/13/18 08/13/18 08/13/18 12:53 12:53 17:55 WBC RBC Hgb Hct MCHC RDW Weber # Seg Neutrophils % Lymphocytes % (Manual) Seg Neutrophils # Lymphocytes # (Manual) PT INR APTT D-Dimer Heparin Anti-Xa Level POC ABG pH POC ABG pCO2 POC ABG pO2 Sodium Potassium Chloride Carbon Dioxide BUN Creatinine Glucose POC Glucose 308 H Lactic Acid 2.80 H* Calcium Magnesium 2.50 H AST Alkaline Phosphatase Total Creatine Kinase CK-MB (CK-2) Troponin T C-Reactive Protein 16.90 H Total Protein Albumin Cholesterol LDL Cholesterol Direct HDL Cholesterol Urine WBC (Auto) Urine Creatinine Urine Total Protein Crossmatch 08/13/18 08/13/18 08/13/18 20:07 21:16 23:17 WBC RBC Hgb Hct MCHC RDW Weber # Seg Neutrophils % Lymphocytes % (Manual) Seg Neutrophils # Lymphocytes # (Manual) PT INR APTT D-Dimer 2742.50 H Heparin Anti-Xa Level POC ABG pH 7.483 H POC ABG pCO2 30.8 L POC ABG pO2 150 H Sodium Potassium Chloride Carbon Dioxide BUN Creatinine Glucose POC Glucose 245 H Lactic Acid Calcium Magnesium AST Alkaline Phosphatase Total Creatine Kinase CK-MB (CK-2) Troponin T C-Reactive Protein Total Protein Albumin Cholesterol LDL Cholesterol Direct HDL Cholesterol Urine WBC (Auto) Urine Creatinine Urine Total Protein Crossmatch 08/14/18 08/14/18 08/14/18 04:03 04:03 04:56 WBC 18.2 H RBC 2.62 L Hgb 7.3 L Hct 24.5 L MCHC RDW 18.9 H Weber # 1.2 H Seg Neutrophils % 79.4 H Lymphocytes % (Manual) Seg Neutrophils # 14.5 H Lymphocytes # (Manual) PT INR APTT D-Dimer Heparin Anti-Xa Level POC ABG pH POC ABG pCO2 33.5 L POC ABG pO2 153 H Sodium 152 H Potassium 3.4 L Chloride 113.8 H Carbon Dioxide BUN 72 H Creatinine 2.7 H Glucose 239 H POC Glucose Lactic Acid Calcium 7.6 L Magnesium AST 50 H Alkaline Phosphatase 219 H Total Creatine Kinase CK-MB (CK-2) Troponin T 0.409 H* C-Reactive Protein Total Protein 6.2 L Albumin 1.9 L Cholesterol LDL Cholesterol Direct HDL Cholesterol Urine WBC (Auto) Urine Creatinine Urine Total Protein Crossmatch 08/14/18 08/14/18 08/14/18 05:18 13:38 15:35 WBC RBC Hgb Hct MCHC RDW Weber # Seg Neutrophils % Lymphocytes % (Manual) Seg Neutrophils # Lymphocytes # (Manual) PT INR APTT D-Dimer Heparin Anti-Xa Level POC ABG pH POC ABG pCO2 POC ABG pO2 Sodium 150 H Potassium 3.2 L Chloride 114.5 H Carbon Dioxide BUN 69 H Creatinine 2.3 H Glucose 247 H POC Glucose 242 H 296 H Lactic Acid Calcium 7.2 L Magnesium AST Alkaline Phosphatase Total Creatine Kinase CK-MB (CK-2) Troponin T C-Reactive Protein Total Protein Albumin Cholesterol LDL Cholesterol Direct HDL Cholesterol Urine WBC (Auto) Urine Creatinine Urine Total Protein Crossmatch 08/14/18 08/14/18 08/14/18 17:01 17:20 23:47 WBC RBC Hgb Hct MCHC RDW Weber # Seg Neutrophils % Lymphocytes % (Manual) Seg Neutrophils # Lymphocytes # (Manual) PT INR APTT D-Dimer Heparin Anti-Xa Level POC ABG pH POC ABG pCO2 POC ABG pO2 Sodium Potassium Chloride Carbon Dioxide BUN Creatinine Glucose POC Glucose 261 H 280 H Lactic Acid Calcium Magnesium AST Alkaline Phosphatase Total Creatine Kinase CK-MB (CK-2) Troponin T C-Reactive Protein Total Protein Albumin Cholesterol LDL Cholesterol Direct HDL Cholesterol Urine WBC (Auto) Urine Creatinine 60.9 H Urine Total Protein 64 H Crossmatch 08/15/18 08/15/18 08/15/18 04:05 04:05 04:05 WBC RBC Hgb 6.3 L Hct 19.7 L* MCHC RDW Weber # Seg Neutrophils % Lymphocytes % (Manual) Seg Neutrophils # Lymphocytes # (Manual) PT INR APTT D-Dimer Heparin Anti-Xa Level 0.17 L POC ABG pH POC ABG pCO2 POC ABG pO2 Sodium 146 H Potassium 3.0 L Chloride 110.6 H Carbon Dioxide BUN 64 H Creatinine 2.2 H Glucose 231 H POC Glucose Lactic Acid Calcium 7.1 L Magnesium AST Alkaline Phosphatase Total Creatine Kinase CK-MB (CK-2) Troponin T C-Reactive Protein Total Protein Albumin Cholesterol LDL Cholesterol Direct HDL Cholesterol Urine WBC (Auto) Urine Creatinine Urine Total Protein Crossmatch 08/15/18 08/15/18 08/15/18 05:21 05:26 06:35 WBC RBC Hgb Hct MCHC RDW Weber # Seg Neutrophils % Lymphocytes % (Manual) Seg Neutrophils # Lymphocytes # (Manual) PT INR APTT 79.0 H* D-Dimer Heparin Anti-Xa Level POC ABG pH 7.494 H POC ABG pCO2 POC ABG pO2 155 H Sodium Potassium Chloride Carbon Dioxide BUN Creatinine Glucose POC Glucose 271 H Lactic Acid Calcium Magnesium AST Alkaline Phosphatase Total Creatine Kinase CK-MB (CK-2) Troponin T C-Reactive Protein Total Protein Albumin Cholesterol LDL Cholesterol Direct HDL Cholesterol Urine WBC (Auto) Urine Creatinine Urine Total Protein Crossmatch 08/15/18 08/15/18 08/15/18 12:10 15:31 17:27 WBC RBC Hgb Hct MCHC RDW Weber # Seg Neutrophils % Lymphocytes % (Manual) Seg Neutrophils # Lymphocytes # (Manual) PT INR APTT D-Dimer Heparin Anti-Xa Level POC ABG pH POC ABG pCO2 POC ABG pO2 Sodium Potassium Chloride Carbon Dioxide BUN Creatinine Glucose POC Glucose 301 H 287 H Lactic Acid Calcium Magnesium AST Alkaline Phosphatase Total Creatine Kinase CK-MB (CK-2) Troponin T C-Reactive Protein Total Protein Albumin Cholesterol LDL Cholesterol Direct HDL Cholesterol Urine WBC (Auto) Urine Creatinine Urine Total Protein Crossmatch See Detail 08/15/18 08/15/18 08/16/18 21:41 23:45 04:13 WBC RBC Hgb Hct MCHC RDW Weber # Seg Neutrophils % Lymphocytes % (Manual) Seg Neutrophils # Lymphocytes # (Manual) PT INR APTT D-Dimer Heparin Anti-Xa Level 0.19 L POC ABG pH POC ABG pCO2 32.1 L POC ABG pO2 107 H Sodium Potassium Chloride Carbon Dioxide BUN Creatinine Glucose POC Glucose 163 H Lactic Acid Calcium Magnesium AST Alkaline Phosphatase Total Creatine Kinase CK-MB (CK-2) Troponin T C-Reactive Protein Total Protein Albumin Cholesterol LDL Cholesterol Direct HDL Cholesterol Urine WBC (Auto) Urine Creatinine Urine Total Protein Crossmatch 08/16/18 08/16/18 08/16/18 04:50 05:28 11:30 WBC RBC 2.67 L Hgb 8.1 L Hct 23.4 L MCHC 35 H RDW 18.3 H Weber # Seg Neutrophils % Lymphocytes % (Manual) Seg Neutrophils # Lymphocytes # (Manual) PT INR APTT D-Dimer Heparin Anti-Xa Level 0.19 L POC ABG pH POC ABG pCO2 POC ABG pO2 Sodium Potassium Chloride Carbon Dioxide BUN Creatinine Glucose POC Glucose 141 H Lactic Acid Calcium Magnesium AST Alkaline Phosphatase Total Creatine Kinase CK-MB (CK-2) Troponin T C-Reactive Protein Total Protein Albumin Cholesterol LDL Cholesterol Direct HDL Cholesterol Urine WBC (Auto) Urine Creatinine Urine Total Protein Crossmatch 08/16/18 08/16/18 08/16/18 11:30 12:00 12:01 WBC RBC Hgb Hct MCHC RDW Weber # Seg Neutrophils % Lymphocytes % (Manual) Seg Neutrophils # Lymphocytes # (Manual) PT INR APTT D-Dimer Heparin Anti-Xa Level 0.15 L POC ABG pH POC ABG pCO2 POC ABG pO2 Sodium Potassium Chloride 107.8 H Carbon Dioxide 21 L BUN 47 H Creatinine 1.6 H Glucose 221 H POC Glucose 267 H Lactic Acid Calcium 6.9 L Magnesium AST Alkaline Phosphatase Total Creatine Kinase CK-MB (CK-2) Troponin T C-Reactive Protein Total Protein Albumin Cholesterol LDL Cholesterol Direct HDL Cholesterol Urine WBC (Auto) Urine Creatinine Urine Total Protein Crossmatch 08/16/18 08/16/18 08/16/18 17:23 20:01 23:13 WBC RBC Hgb Hct MCHC RDW Weber # Seg Neutrophils % Lymphocytes % (Manual) Seg Neutrophils # Lymphocytes # (Manual) PT INR APTT D-Dimer Heparin Anti-Xa Level 0.26 L POC ABG pH POC ABG pCO2 POC ABG pO2 Sodium Potassium Chloride Carbon Dioxide BUN Creatinine Glucose POC Glucose 245 H 256 H Lactic Acid Calcium Magnesium AST Alkaline Phosphatase Total Creatine Kinase CK-MB (CK-2) Troponin T C-Reactive Protein Total Protein Albumin Cholesterol LDL Cholesterol Direct HDL Cholesterol Urine WBC (Auto) Urine Creatinine Urine Total Protein Crossmatch 08/17/18 08/17/18 08/17/18 04:29 04:55 05:34 WBC RBC Hgb 8.2 L Hct 24.3 L MCHC RDW Weber # Seg Neutrophils % Lymphocytes % (Manual) Seg Neutrophils # Lymphocytes # (Manual) PT INR APTT D-Dimer Heparin Anti-Xa Level POC ABG pH POC ABG pCO2 32.4 L POC ABG pO2 108 H Sodium Potassium Chloride Carbon Dioxide BUN Creatinine Glucose POC Glucose 268 H Lactic Acid Calcium Magnesium AST Alkaline Phosphatase Total Creatine Kinase CK-MB (CK-2) Troponin T C-Reactive Protein Total Protein Albumin Cholesterol LDL Cholesterol Direct HDL Cholesterol Urine WBC (Auto) Urine Creatinine Urine Total Protein Crossmatch
[2018-08-17] MEDS: ASPIRIN PO SCH (10:25)
[2018-08-17] MEDS: KEPPRA PO SCH ×2 (10:26→21:58)
[2018-08-17] MEDS: PEPCID PO SCH (10:26)
[2018-08-17] MEDS: SODIUM CHLORIDE FLUSH SYRINGE 10 ML IV SCH ×2 (10:34)
--- NOTE | 2018-08-17 10:50 | Progress Note ---
Assessment and Plan Pt presented s/p multiple cardiac arrests with prologned down time - per neurology, pt will likely not recover. Pt's initial ECG was suggestive of ischemia/infarction, repeat ECG shows resolution of ST changes, Ian elevated. Will continue with conservative cardiac management at this time given overall poor prognosis. D/c heparin gtt as this has been infusing >48Hr. Cont ASA and statin, consider addition of BB if BPs permit. The patient has been seen in conjunction with Dr. Pena who agrees with the assessment and plan of care. - Patient Problems (1) Cardiac arrest Current Visit: Yes Status: Acute (2) ACS (acute coronary syndrome) Current Visit: Yes Status: Acute (3) Seizure disorder Current Visit: Yes Status: Acute (4) Altered mental state Current Visit: Yes Status: Acute (5) Acute and chronic respiratory failure Current Visit: Yes Status: Acute Qualifiers: Respiratory failure complication: hypoxia Qualified Code(s): J96.21 - Acute and chronic respiratory failure with hypoxia (6) Hypotension Current Visit: Yes Status: Acute (7) Pneumothorax Current Visit: Yes Status: Acute (8) History of CVA (cerebrovascular accident) Current Visit: Yes Status: Chronic (9) Sinus tachycardia Current Visit: Yes Status: Acute (10) Leukocytosis Current Visit: Yes Status: Acute (11) Fever Current Visit: Yes Status: Acute (12) Anemia Current Visit: Yes Status: Acute (13) MAYLIN (acute kidney injury) Current Visit: Yes Status: Acute (14) Hypernatremia Current Visit: Yes Status: Acute (15) History of tracheostomy Current Visit: Yes Status: Chronic Subjective Date of service: 08/17/18 Principal diagnosis: Acute hypoxemic resp failure; S/P cardiac arrest; Seizures; DM II; H/O CVA Interval history: pt remains intubated, sedated, nonresponsive, no family at bedside. heparin gtt infusing. Objective Last Vital Signs Temp 99.0 F 08/17/18 04:00 Pulse 70 08/17/18 10:30 Resp 17 08/17/18 10:30 BP 130/58 08/17/18 10:30 Pulse Ox 99 08/17/18 10:30 - Physical Examination General: Other (intubated, sedated, nonresponsive) Neck: Positive: trachea midline Cardiac: Positive: Reg Rate and Rhythm, S1/S2 Lungs: Positive: Decreased Breath Sounds, Ventilated Respirations Neuro: Positive: Other (intubated, sedated, nonresponsive) Abdomen: Positive: Unremarkable Extremities: Absent: edema - Labs and Meds CBC 08/16/18 08/17/18 Range/Units 11:30 04:55 WBC 8.5 (4.5-11.0) K/mm3 RBC 2.67 L (3.65-5.03) M/mm3 Hgb 8.1 L 8.2 L (11.8-15.2) gm/dl Hct 23.4 L 24.3 L (35.5-45.6) % Plt Count 208 233 (140-440) K/mm3 Comprehensive Metabolic Panel 08/16/18 Range/Units 11:30 Sodium 141 (137-145) mmol/L Potassium 3.6 (3.6-5.0) mmol/L Chloride 107.8 H (98-107) mmol/L Carbon Dioxide 21 L (22-30) mmol/L BUN 47 H (9-20) mg/dL Creatinine 1.6 H (0.8-1.5) mg/dL Glucose 221 H (75-100) mg/dL Calcium 6.9 L (8.4-10.2) mg/dL - Imaging and Cardiology EKG: report reviewed, image reviewed Echo: report reviewed (07/2018: TDS, EF 55-60%. GLORIA done 05/12/2018 showed EF 60- 65%, no thromcus, negative bubble study, mild TR, mild MR. TTE done 05/08/2018 showed EF 60%, mild LVH, grade 1 diastolic dysfunction, negative bubble study. ) - Telemetry EKG Rhythm: Sinus Rhythm - EKG Sinus rhythms and dysrhythmias: sinus tachycardia Repolarization changes or abnormalities: ST or T wave suggestive of ischemia - Allied health notes Allied health notes reviewed: nursing
--- NOTE | 2018-08-17 11:18 | Nuclear Medicine Report ---
NUCLEAR MEDICINE BRAIN FLOW HISTORY: Anoxic injury. TECHNIQUE: Anterior scintigraphic flow images of the head and neck were obtained for 120 seconds following 20 mCi of technetium 99m pertechnetate. COMMENT: This examination is just presented to me for interpretation. Teleradiology was unable to provide an interpretation. FINDINGS: Regions of interest overlying the right and left carotid arteries demonstrate flow counts ranging from 90-130 counts/second. Regions of interest overlying the right and left cerebral hemispheres demonstrate flow flow counts of approximately 20 counts/second. IMPRESSION: Nuclear medicine brain flow study suggests significantly reduced intracranial blood flow. No complete absence of intracranial blood flow is demonstrated. Please correlate with the clinical presentation of the patient.
--- NOTE | 2018-08-17 11:49 | Progress Note ---
Assessment and Plan Acute hypoxemic respiratory failure on chronic. Status post cardiac arrest. Seizure disorder with breakthrough seizures. History of diabetes. History of cerebrovascular accident. Oropharyngeal dysphagia. History of seizures. (AMS is rate limiting step to safe extubation at this point) - continue daily SBT's as tolerated (not tolerating well) - tracheostomy consult placed - continue to rest qhs on MVS at set rate at 12/min - continue chest tube to continuous wall suction (pull after liberating from MVS) - neurology evaluation ongoing (pupils reactive sluggishly) - sedation target for RASS 0 to -1 (daily SAT's as tolerated) - continue Keppra for seizures with prn ativan IV for breakthrough - continue GI & VTE prophylaxis - continue bronchodilators with pulmonary hygiene per RT - continue to wean supplemental oxygen to keep O2 sats 88-90% - Lung protective strategies - VAP bundle addressed - Continue cardioprotective measures - Replete electrolytes as indicated - Continue to rest at night on full MVS - Monitor renal indices closely - Avoid nephrotoxic agents, adjust all medications for CrCL - Strict intake and output monitoring - continue enteral nutrition as tolerated - begin lantus 10 units SQ daily for hyperglycemia - continue accuchecks with glycemic control per SSI for target glucose of 140- 180 mg/dL - Maintenance of sleep -wake cycle - Mobility as tolerated by hemodynamics - Influenza and pneumonia vaccination per protocol .... he will need a tracheostomy if continued care is preferred by his next of kin and i will discuss with her next 24 hours PROGNOSIS: GUARDED CONDITION: CRITICAL CODE STATUS: FULL CODE The high probability of a clinically significant, sudden or life-threatening deterioration of the [respiratory, neurology, renal] system(s) required my full and direct attention, intervention and personal management. The aggregate critical care time was [34] minutes without overlap. Time includes spent on; [x] Data Review and interpretation [x] Patient assessment and monitoring of vital signs [x] Documentation [x] Medication orders and management Subjective Date of service: 08/17/18 Principal diagnosis: Acute hypoxemic resp failure; S/P cardiac arrest; Seizures; DM II; H/O CVA Interval history: Patient is seen today for: Acute hypoxemic respiratory failure on chronic; Status post cardiac arrest; Seizure disorder with breakthrough seizures; History of diabetes; History of cerebrovascular accident; Oropharyngeal dysphagia; History of seizures. Seen and examined at bedside; 24hour events reviewed; nursing and respiratory care staff consulted; no adverse overnight events reported to me; remains on MVS; AMS is persistent; Brain w/up negative; tolerating tube feeds; no emesis or overt aspiration Objective Vital Signs - 12hr 08/16/18 08/17/18 08/17/18 23:51 00:00 00:09 Temperature 98.9 F Pulse Rate 70 69 70 Respiratory 24 21 21 Rate Blood Pressure 131/55 128/55 131/57 O2 Sat by Pulse 100 100 100 Oximetry 08/17/18 08/17/18 08/17/18 00:10 00:21 00:30 Temperature Pulse Rate 70 70 70 Respiratory 21 21 20 Rate Blood Pressure 131/55 131/57 130/55 O2 Sat by Pulse 100 100 99 Oximetry 08/17/18 08/17/18 08/17/18 00:41 00:51 01:00 Temperature Pulse Rate 69 69 70 Respiratory 21 21 20 Rate Blood Pressure 130/55 131/57 131/55 O2 Sat by Pulse 100 100 99 Oximetry 08/17/18 08/17/18 08/17/18 01:11 01:21 01:30 Temperature Pulse Rate 70 74 72 Respiratory 21 21 18 Rate Blood Pressure 131/55 131/55 133/59 O2 Sat by Pulse 100 100 99 Oximetry 08/17/18 08/17/18 08/17/18 01:41 01:51 02:00 Temperature Pulse Rate 70 70 71 Respiratory 23 20 17 Rate Blood Pressure 133/59 133/59 130/54 O2 Sat by Pulse 100 100 98 Oximetry 08/17/18 08/17/18 08/17/18 02:11 02:21 02:30 Temperature Pulse Rate 72 70 71 Respiratory 16 18 18 Rate Blood Pressure 130/54 130/54 132/57 O2 Sat by Pulse 100 100 98 Oximetry 08/17/18 08/17/18 08/17/18 02:41 02:51 03:00 Temperature Pulse Rate 72 70 71 Respiratory 22 19 18 Rate Blood Pressure 132/57 132/57 132/56 O2 Sat by Pulse 100 100 98 Oximetry 08/17/18 08/17/18 08/17/18 03:11 03:21 03:30 Temperature Pulse Rate 71 72 71 Respiratory 22 21 17 Rate Blood Pressure 132/56 132/56 131/55 O2 Sat by Pulse 100 100 98 Oximetry 08/17/18 08/17/18 08/17/18 03:41 03:51 04:00 Temperature 99.0 F Pulse Rate 72 71 71 Respiratory 16 18 16 Rate Blood Pressure 131/55 131/55 144/58 O2 Sat by Pulse 100 100 98 Oximetry 08/17/18 08/17/18 08/17/18 04:11 04:21 04:29 Temperature Pulse Rate 72 73 72 Respiratory 16 20 Rate Blood Pressure 144/58 144/58 144/58 O2 Sat by Pulse 100 100 100 Oximetry 08/17/18 08/17/18 08/17/18 04:30 04:41 04:51 Temperature Pulse Rate 72 73 73 Respiratory 17 16 16 Rate Blood Pressure 134/54 134/54 134/54 O2 Sat by Pulse 98 100 100 Oximetry 08/17/18 08/17/18 08/17/18 05:00 05:11 05:21 Temperature Pulse Rate 71 71 71 Respiratory 16 17 17 Rate Blood Pressure 139/57 139/57 139/57 O2 Sat by Pulse 100 100 100 Oximetry 08/17/18 08/17/18 08/17/18 05:30 05:41 05:51 Temperature Pulse Rate 72 72 72 Respiratory 18 22 16 Rate Blood Pressure 137/58 137/58 137/58 O2 Sat by Pulse 100 100 100 Oximetry 08/17/18 08/17/18 08/17/18 06:00 06:11 06:21 Temperature Pulse Rate 76 72 71 Respiratory 19 18 17 Rate Blood Pressure 136/60 136/60 136/60 O2 Sat by Pulse 100 100 100 Oximetry 08/17/18 08/17/18 08/17/18 06:30 06:41 06:50 Temperature Pulse Rate 72 72 71 Respiratory 22 17 18 Rate Blood Pressure 147/59 147/59 147/59 O2 Sat by Pulse 99 100 100 Oximetry 08/17/18 08/17/18 08/17/18 07:00 07:10 07:21 Temperature Pulse Rate 73 72 72 Respiratory 18 18 17 Rate Blood Pressure 138/58 138/58 138/58 O2 Sat by Pulse 99 100 100 Oximetry 08/17/18 08/17/18 08/17/18 07:30 07:41 07:51 Temperature Pulse Rate 71 70 71 Respiratory 17 16 16 Rate Blood Pressure 134/53 138/58 138/58 O2 Sat by Pulse 100 100 100 Oximetry 08/17/18 08/17/18 08/17/18 08:00 08:11 08:21 Temperature Pulse Rate 72 73 71 Respiratory 16 15 16 Rate Blood Pressure 136/53 136/53 136/53 O2 Sat by Pulse 100 100 100 Oximetry 08/17/18 08/17/18 08/17/18 08:30 08:41 08:51 Temperature Pulse Rate 71 Respiratory 15 Rate Blood Pressure 130/54 130/54 130/54 O2 Sat by Pulse 99 100 100 Oximetry 08/17/18 08/17/18 08/17/18 09:01 09:11 09:21 Temperature Pulse Rate 74 78 Respiratory 15 17 Rate Blood Pressure 130/54 139/58 139/58 O2 Sat by Pulse 98 99 100 Oximetry 08/17/18 08/17/18 08/17/18 09:30 09:41 09:51 Temperature Pulse Rate 72 72 73 Respiratory 15 15 15 Rate Blood Pressure 133/56 133/56 133/56 O2 Sat by Pulse 100 100 98 Oximetry 08/17/18 08/17/18 08/17/18 10:00 10:11 10:18 Temperature Pulse Rate 70 70 71 Respiratory 15 15 18 Rate Blood Pressure 126/55 126/55 126/55 O2 Sat by Pulse 99 100 100 Oximetry 08/17/18 08/17/18 08/17/18 10:21 10:30 10:41 Temperature Pulse Rate 71 70 69 Respiratory 17 17 19 Rate Blood Pressure 126/55 130/58 130/58 O2 Sat by Pulse 100 99 100 Oximetry 08/17/18 08/17/18 08/17/18 10:51 11:00 11:11 Temperature Pulse Rate 69 70 70 Respiratory 16 19 15 Rate Blood Pressure 130/58 139/62 139/62 O2 Sat by Pulse 100 99 100 Oximetry 08/17/18 11:21 Temperature Pulse Rate 69 Respiratory 15 Rate Blood Pressure 139/62 O2 Sat by Pulse 100 Oximetry Constitutional: no acute distress, other (Elderly looking AAM, normocephalic resting in bed on MVS) Eyes: non-icteric ENT: oropharynx moist, other (ETT 23-24 cm JOVI) Neck: supple, no lymphadenopathy, no JVD Effort: mildly labored Ascultation: Bilateral: diminished breath sounds, rhonchi Percussion: Bilateral: not dull Cardiovascular: regular rate and rhythm Gastrointestinal: normoactive bowel sounds, soft, non-tender, non-distended Integumentary: normal Extremities: no cyanosis, pulses normal, no ischemia or petechiae, edema (trace ) Neurologic: unable to assess, other (slight pupillary constriction to light) Psychiatric: other (unable to assess) CBC and BMP: 08/17/18 04:55 08/16/18 11:30 ABG, PT/INR, D-dimer: ABG POC ABG pH 7.419 (7.35-7.45) 08/17/18 04:29 POC ABG pCO2 32.4 (35-45) L 08/17/18 04:29 POC ABG pO2 108 (80-105) H 08/17/18 04:29 POC ABG HCO3 21.0 (22-26 mml/L) 08/17/18 04:29 POC ABG Total CO2 22 (23-27mmol/L) 08/17/18 04:29 POC ABG O2 Sat 98 08/17/18 04:29 PT/INR, D-dimer PT 16.5 Sec. (12.2-14.9) H 08/13/18 00:47 INR 1.25 (0.87-1.13) H 08/13/18 00:47 2742.50 ng/mlDDU (0-234) H 08/13/18 20:07 Abnormal lab findings: Abnormal Labs 08/12/18 08/12/18 08/12/18 21:44 21:44 21:44 WBC 15.5 H RBC 3.12 L Hgb 8.8 L Hct 28.9 L MCHC 31 L RDW 19.5 H [place] # Seg Neutrophils % Lymphocytes % (Manual) 48.0 H Seg Neutrophils # Lymphocytes # (Manual) 7.4 H PT 17.8 H INR 1.37 H APTT D-Dimer Heparin Anti-Xa Level POC ABG pH POC ABG pCO2 POC ABG pO2 Sodium 159 H Potassium Chloride 118.5 H Carbon Dioxide BUN 34 H Creatinine Glucose 161 H POC Glucose Lactic Acid Calcium Magnesium AST Alkaline Phosphatase Total Creatine Kinase CK-MB (CK-2) Troponin T 0.105 H* C-Reactive Protein Total Protein Albumin Cholesterol LDL Cholesterol Direct HDL Cholesterol Urine WBC (Auto) Urine Creatinine Urine Total Protein Crossmatch 08/13/18 08/13/18 08/13/18 00:32 00:47 00:47 WBC RBC Hgb 9.2 L Hct 29.6 L MCHC RDW [place] # Seg Neutrophils % Lymphocytes % (Manual) Seg Neutrophils # Lymphocytes # (Manual) PT 16.5 H INR 1.25 H APTT 37.3 H D-Dimer Heparin Anti-Xa Level POC ABG pH POC ABG pCO2 POC ABG pO2 Sodium Potassium Chloride Carbon Dioxide BUN Creatinine Glucose POC Glucose Lactic Acid Calcium Magnesium AST Alkaline Phosphatase Total Creatine Kinase 211 H CK-MB (CK-2) 7.7 H Troponin T 0.169 H* D C-Reactive Protein Total Protein Albumin Cholesterol 46 L LDL Cholesterol Direct 17 L HDL Cholesterol 6 L Urine WBC (Auto) Urine Creatinine Urine Total Protein Crossmatch 08/13/18 08/13/18 08/13/18 00:50 02:25 05:34 WBC RBC Hgb Hct MCHC RDW [place] # Seg Neutrophils % Lymphocytes % (Manual) Seg Neutrophils # Lymphocytes # (Manual) PT INR APTT D-Dimer Heparin Anti-Xa Level POC ABG pH 7.503 H POC ABG pCO2 POC ABG pO2 253 H Sodium Potassium Chloride Carbon Dioxide BUN Creatinine Glucose POC Glucose Lactic Acid Calcium Magnesium AST Alkaline Phosphatase Total Creatine Kinase 311 H CK-MB (CK-2) 10.4 H Troponin T 0.283 H* D C-Reactive Protein Total Protein Albumin Cholesterol LDL Cholesterol Direct HDL Cholesterol Urine WBC (Auto) > 182.0 H Urine Creatinine Urine Total Protein Crossmatch 08/13/18 08/13/18 08/13/18 06:35 10:10 10:10 WBC RBC Hgb Hct MCHC RDW [place] # Seg Neutrophils % Lymphocytes % (Manual) Seg Neutrophils # Lymphocytes # (Manual) PT INR APTT D-Dimer Heparin Anti-Xa Level POC ABG pH 7.554 H POC ABG pCO2 33.5 L POC ABG pO2 220 H Sodium 158 H Potassium Chloride 117.1 H Carbon Dioxide BUN 53 H Creatinine 2.0 H Glucose 247 H POC Glucose Lactic Acid Calcium 8.2 L Magnesium AST Alkaline Phosphatase Total Creatine Kinase 309 H CK-MB (CK-2) 4.1 H Troponin T 0.470 H* D C-Reactive Protein Total Protein Albumin Cholesterol LDL Cholesterol Direct HDL Cholesterol Urine WBC (Auto) Urine Creatinine Urine Total Protein Crossmatch 08/13/18 08/13/18 08/13/18 12:53 12:53 17:55 WBC RBC Hgb Hct MCHC RDW [place] # Seg Neutrophils % Lymphocytes % (Manual) Seg Neutrophils # Lymphocytes # (Manual) PT INR APTT D-Dimer Heparin Anti-Xa Level POC ABG pH POC ABG pCO2 POC ABG pO2 Sodium Potassium Chloride Carbon Dioxide BUN Creatinine Glucose POC Glucose 308 H Lactic Acid 2.80 H* Calcium Magnesium 2.50 H AST Alkaline Phosphatase Total Creatine Kinase CK-MB (CK-2) Troponin T C-Reactive Protein 16.90 H Total Protein Albumin Cholesterol LDL Cholesterol Direct HDL Cholesterol Urine WBC (Auto) Urine Creatinine Urine Total Protein Crossmatch 08/13/18 08/13/18 08/13/18 20:07 21:16 23:17 WBC RBC Hgb Hct MCHC RDW [place] # Seg Neutrophils % Lymphocytes % (Manual) Seg Neutrophils # Lymphocytes # (Manual) PT INR APTT D-Dimer 2742.50 H Heparin Anti-Xa Level POC ABG pH 7.483 H POC ABG pCO2 30.8 L POC ABG pO2 150 H Sodium Potassium Chloride Carbon Dioxide BUN Creatinine Glucose POC Glucose 245 H Lactic Acid Calcium Magnesium AST Alkaline Phosphatase Total Creatine Kinase CK-MB (CK-2) Troponin T C-Reactive Protein Total Protein Albumin Cholesterol LDL Cholesterol Direct HDL Cholesterol Urine WBC (Auto) Urine Creatinine Urine Total Protein Crossmatch 08/14/18 08/14/18 08/14/18 04:03 04:03 04:56 WBC 18.2 H RBC 2.62 L Hgb 7.3 L Hct 24.5 L MCHC RDW 18.9 H [place] # 1.2 H Seg Neutrophils % 79.4 H Lymphocytes % (Manual) Seg Neutrophils # 14.5 H Lymphocytes # (Manual) PT INR APTT D-Dimer Heparin Anti-Xa Level POC ABG pH POC ABG pCO2 33.5 L POC ABG pO2 153 H Sodium 152 H Potassium 3.4 L Chloride 113.8 H Carbon Dioxide BUN 72 H Creatinine 2.7 H Glucose 239 H POC Glucose Lactic Acid Calcium 7.6 L Magnesium AST 50 H Alkaline Phosphatase 219 H Total Creatine Kinase CK-MB (CK-2) Troponin T 0.409 H* C-Reactive Protein Total Protein 6.2 L Albumin 1.9 L Cholesterol LDL Cholesterol Direct HDL Cholesterol Urine WBC (Auto) Urine Creatinine Urine Total Protein Crossmatch 08/14/18 08/14/18 08/14/18 05:18 13:38 15:35 WBC RBC Hgb Hct MCHC RDW [place] # Seg Neutrophils % Lymphocytes % (Manual) Seg Neutrophils # Lymphocytes # (Manual) PT INR APTT D-Dimer Heparin Anti-Xa Level POC ABG pH POC ABG pCO2 POC ABG pO2 Sodium 150 H Potassium 3.2 L Chloride 114.5 H Carbon Dioxide BUN 69 H Creatinine 2.3 H Glucose 247 H POC Glucose 242 H 296 H Lactic Acid Calcium 7.2 L Magnesium AST Alkaline Phosphatase Total Creatine Kinase CK-MB (CK-2) Troponin T C-Reactive Protein Total Protein Albumin Cholesterol LDL Cholesterol Direct HDL Cholesterol Urine WBC (Auto) Urine Creatinine Urine Total Protein Crossmatch 08/14/18 08/14/18 08/14/18 17:01 17:20 23:47 WBC RBC Hgb Hct MCHC RDW [place] # Seg Neutrophils % Lymphocytes % (Manual) Seg Neutrophils # Lymphocytes # (Manual) PT INR APTT D-Dimer Heparin Anti-Xa Level POC ABG pH POC ABG pCO2 POC ABG pO2 Sodium Potassium Chloride Carbon Dioxide BUN Creatinine Glucose POC Glucose 261 H 280 H Lactic Acid Calcium Magnesium AST Alkaline Phosphatase Total Creatine Kinase CK-MB (CK-2) Troponin T C-Reactive Protein Total Protein Albumin Cholesterol LDL Cholesterol Direct HDL Cholesterol Urine WBC (Auto) Urine Creatinine 60.9 H Urine Total Protein 64 H Crossmatch 08/15/18 08/15/18 08/15/18 04:05 04:05 04:05 WBC RBC Hgb 6.3 L Hct 19.7 L* MCHC RDW [place] # Seg Neutrophils % Lymphocytes % (Manual) Seg Neutrophils # Lymphocytes # (Manual) PT INR APTT D-Dimer Heparin Anti-Xa Level 0.17 L POC ABG pH POC ABG pCO2 POC ABG pO2 Sodium 146 H Potassium 3.0 L Chloride 110.6 H Carbon Dioxide BUN 64 H Creatinine 2.2 H Glucose 231 H POC Glucose Lactic Acid Calcium 7.1 L Magnesium AST Alkaline Phosphatase Total Creatine Kinase CK-MB (CK-2) Troponin T C-Reactive Protein Total Protein Albumin Cholesterol LDL Cholesterol Direct HDL Cholesterol Urine WBC (Auto) Urine Creatinine Urine Total Protein Crossmatch 08/15/18 08/15/18 08/15/18 05:21 05:26 06:35 WBC RBC Hgb Hct MCHC RDW [place] # Seg Neutrophils % Lymphocytes % (Manual) Seg Neutrophils # Lymphocytes # (Manual) PT INR APTT 79.0 H* D-Dimer Heparin Anti-Xa Level POC ABG pH 7.494 H POC ABG pCO2 POC ABG pO2 155 H Sodium Potassium Chloride Carbon Dioxide BUN Creatinine Glucose POC Glucose 271 H Lactic Acid Calcium Magnesium AST Alkaline Phosphatase Total Creatine Kinase CK-MB (CK-2) Troponin T C-Reactive Protein Total Protein Albumin Cholesterol LDL Cholesterol Direct HDL Cholesterol Urine WBC (Auto) Urine Creatinine Urine Total Protein Crossmatch 08/15/18 08/15/18 08/15/18 12:10 15:31 17:27 WBC RBC Hgb Hct MCHC RDW [place] # Seg Neutrophils % Lymphocytes % (Manual) Seg Neutrophils # Lymphocytes # (Manual) PT INR APTT D-Dimer Heparin Anti-Xa Level POC ABG pH POC ABG pCO2 POC ABG pO2 Sodium Potassium Chloride Carbon Dioxide BUN Creatinine Glucose POC Glucose 301 H 287 H Lactic Acid Calcium Magnesium AST Alkaline Phosphatase Total Creatine Kinase CK-MB (CK-2) Troponin T C-Reactive Protein Total Protein Albumin Cholesterol LDL Cholesterol Direct HDL Cholesterol Urine WBC (Auto) Urine Creatinine Urine Total Protein Crossmatch See Detail 08/15/18 08/15/18 08/16/18 21:41 23:45 04:13 WBC RBC Hgb Hct MCHC RDW [place] # Seg Neutrophils % Lymphocytes % (Manual) Seg Neutrophils # Lymphocytes # (Manual) PT INR APTT D-Dimer Heparin Anti-Xa Level 0.19 L POC ABG pH POC ABG pCO2 32.1 L POC ABG pO2 107 H Sodium Potassium Chloride Carbon Dioxide BUN Creatinine Glucose POC Glucose 163 H Lactic Acid Calcium Magnesium AST Alkaline Phosphatase Total Creatine Kinase CK-MB (CK-2) Troponin T C-Reactive Protein Total Protein Albumin Cholesterol LDL Cholesterol Direct HDL Cholesterol Urine WBC (Auto) Urine Creatinine Urine Total Protein Crossmatch 08/16/18 08/16/18 08/16/18 04:50 05:28 11:30 WBC RBC 2.67 L Hgb 8.1 L Hct 23.4 L MCHC 35 H RDW 18.3 H [place] # Seg Neutrophils % Lymphocytes % (Manual) Seg Neutrophils # Lymphocytes # (Manual) PT INR APTT D-Dimer Heparin Anti-Xa Level 0.19 L POC ABG pH POC ABG pCO2 POC ABG pO2 Sodium Potassium Chloride Carbon Dioxide BUN Creatinine Glucose POC Glucose 141 H Lactic Acid Calcium Magnesium AST Alkaline Phosphatase Total Creatine Kinase CK-MB (CK-2) Troponin T C-Reactive Protein Total Protein Albumin Cholesterol LDL Cholesterol Direct HDL Cholesterol Urine WBC (Auto) Urine Creatinine Urine Total Protein Crossmatch 08/16/18 08/16/18 08/16/18 11:30 12:00 12:01 WBC RBC Hgb Hct MCHC RDW [place] # Seg Neutrophils % Lymphocytes % (Manual) Seg Neutrophils # Lymphocytes # (Manual) PT INR APTT D-Dimer Heparin Anti-Xa Level 0.15 L POC ABG pH POC ABG pCO2 POC ABG pO2 Sodium Potassium Chloride 107.8 H Carbon Dioxide 21 L BUN 47 H Creatinine 1.6 H Glucose 221 H POC Glucose 267 H Lactic Acid Calcium 6.9 L Magnesium AST Alkaline Phosphatase Total Creatine Kinase CK-MB (CK-2) Troponin T C-Reactive Protein Total Protein Albumin Cholesterol LDL Cholesterol Direct HDL Cholesterol Urine WBC (Auto) Urine Creatinine Urine Total Protein Crossmatch 08/16/18 08/16/18 08/16/18 17:23 20:01 23:13 WBC RBC Hgb Hct MCHC RDW [place] # Seg Neutrophils % Lymphocytes % (Manual) Seg Neutrophils # Lymphocytes # (Manual) PT INR APTT D-Dimer Heparin Anti-Xa Level 0.26 L POC ABG pH POC ABG pCO2 POC ABG pO2 Sodium Potassium Chloride Carbon Dioxide BUN Creatinine Glucose POC Glucose 245 H 256 H Lactic Acid Calcium Magnesium AST Alkaline Phosphatase Total Creatine Kinase CK-MB (CK-2) Troponin T C-Reactive Protein Total Protein Albumin Cholesterol LDL Cholesterol Direct HDL Cholesterol Urine WBC (Auto) Urine Creatinine Urine Total Protein Crossmatch 08/17/18 08/17/18 08/17/18 04:29 04:55 05:34 WBC RBC Hgb 8.2 L Hct 24.3 L MCHC RDW [place] # Seg Neutrophils % Lymphocytes % (Manual) Seg Neutrophils # Lymphocytes # (Manual) PT INR APTT D-Dimer Heparin Anti-Xa Level POC ABG pH POC ABG pCO2 32.4 L POC ABG pO2 108 H Sodium Potassium Chloride Carbon Dioxide BUN Creatinine Glucose POC Glucose 268 H Lactic Acid Calcium Magnesium AST Alkaline Phosphatase Total Creatine Kinase CK-MB (CK-2) Troponin T C-Reactive Protein Total Protein Albumin Cholesterol LDL Cholesterol Direct HDL Cholesterol Urine WBC (Auto) Urine Creatinine Urine Total Protein Crossmatch Chest x-ray: image reviewed (No focal infiltrates; ETT in good position) Allied health notes reviewed: nursing
--- NOTE | 2018-08-17 12:36 | Progress Note ---
Assessment and Plan - Patient Problems (1) MAYLIN (acute kidney injury) Current Visit: Yes Status: Acute Plan to address problem: Likely pre-renal injury vs ischemic ATN in the setting of cardiac arrest. Renal function remains stable. Continue current supportive care/management. Avoid nephrotoxins, maintain MAP >65mmHg. (2) Hypokalemia Current Visit: Yes Status: Acute Plan to address problem: Replete per protocol. (3) Acute and chronic respiratory failure Current Visit: Yes Status: Acute Qualifiers: Respiratory failure complication: hypoxia Qualified Code(s): J96.21 - Acute and chronic respiratory failure with hypoxia Plan to address problem: Management per primary attending/pulmonology. (4) Hypernatremia Current Visit: Yes Status: Acute Plan to address problem: Improvement noted, (5) Cardiac arrest Current Visit: Yes Status: Acute Plan to address problem: Off pressors at this time. Remains intubated, unresponsive off sedation. Poor brainstem reflexes per nursing staff. (6) Type 2 diabetes mellitus without complications Current Visit: Yes Status: Acute Plan to address problem: DM management per primary attending. Subjective Date of service: 08/17/18 Principal diagnosis: Acute hypoxemic resp failure; S/P cardiac arrest; Seizures; DM II; H/O CVA Interval history: Patient evaluated earlier this morning. No acute changes, no significant changes in his mental status, as he remains unresponsive off sedation. Objective - Vital Signs Vital signs: Vital Signs - 12hr 08/17/18 08/17/18 08/17/18 00:41 00:51 01:00 Temperature Pulse Rate 69 69 70 Respiratory 21 21 20 Rate Blood Pressure 130/55 131/57 131/55 O2 Sat by Pulse 100 100 99 Oximetry 08/17/18 08/17/18 08/17/18 01:11 01:21 01:30 Temperature Pulse Rate 70 74 72 Respiratory 21 21 18 Rate Blood Pressure 131/55 131/55 133/59 O2 Sat by Pulse 100 100 99 Oximetry 08/17/18 08/17/18 08/17/18 01:41 01:51 02:00 Temperature Pulse Rate 70 70 71 Respiratory 23 20 17 Rate Blood Pressure 133/59 133/59 130/54 O2 Sat by Pulse 100 100 98 Oximetry 08/17/18 08/17/18 08/17/18 02:11 02:21 02:30 Temperature Pulse Rate 72 70 71 Respiratory 16 18 18 Rate Blood Pressure 130/54 130/54 132/57 O2 Sat by Pulse 100 100 98 Oximetry 08/17/18 08/17/18 08/17/18 02:41 02:51 03:00 Temperature Pulse Rate 72 70 71 Respiratory 22 19 18 Rate Blood Pressure 132/57 132/57 132/56 O2 Sat by Pulse 100 100 98 Oximetry 08/17/18 08/17/18 08/17/18 03:11 03:21 03:30 Temperature Pulse Rate 71 72 71 Respiratory 22 21 17 Rate Blood Pressure 132/56 132/56 131/55 O2 Sat by Pulse 100 100 98 Oximetry 08/17/18 08/17/18 08/17/18 03:41 03:51 04:00 Temperature 99.0 F Pulse Rate 72 71 71 Respiratory 16 18 16 Rate Blood Pressure 131/55 131/55 144/58 O2 Sat by Pulse 100 100 98 Oximetry 08/17/18 08/17/18 08/17/18 04:11 04:21 04:29 Temperature Pulse Rate 72 73 72 Respiratory 16 20 Rate Blood Pressure 144/58 144/58 144/58 O2 Sat by Pulse 100 100 100 Oximetry 08/17/18 08/17/18 08/17/18 04:30 04:41 04:51 Temperature Pulse Rate 72 73 73 Respiratory 17 16 16 Rate Blood Pressure 134/54 134/54 134/54 O2 Sat by Pulse 98 100 100 Oximetry 08/17/18 08/17/18 08/17/18 05:00 05:11 05:21 Temperature Pulse Rate 71 71 71 Respiratory 16 17 17 Rate Blood Pressure 139/57 139/57 139/57 O2 Sat by Pulse 100 100 100 Oximetry 08/17/18 08/17/18 08/17/18 05:30 05:41 05:51 Temperature Pulse Rate 72 72 72 Respiratory 18 22 16 Rate Blood Pressure 137/58 137/58 137/58 O2 Sat by Pulse 100 100 100 Oximetry 08/17/18 08/17/18 08/17/18 06:00 06:11 06:21 Temperature Pulse Rate 76 72 71 Respiratory 19 18 17 Rate Blood Pressure 136/60 136/60 136/60 O2 Sat by Pulse 100 100 100 Oximetry 08/17/18 08/17/18 08/17/18 06:30 06:41 06:50 Temperature Pulse Rate 72 72 71 Respiratory 22 17 18 Rate Blood Pressure 147/59 147/59 147/59 O2 Sat by Pulse 99 100 100 Oximetry 08/17/18//16 08/ 07:00 07:10 07:21 Temperature Pulse Rate 73 72 72 Respiratory 18 18 17 Rate Blood Pressure 138/58 138/58 138/58 O2 Sat by Pulse 99 100 100 Oximetry 08/17/18// 05/ 07:30 07:41 07:51 Temperature Pulse Rate 71 70 71 Respiratory 17 16 16 Rate Blood Pressure 134/53 138/58 138/58 O2 Sat by Pulse 100 100 100 Oximetry 08/17/18//16 08/ 08:00 08:11 08:21 Temperature Pulse Rate 72 73 71 Respiratory 16 15 16 Rate Blood Pressure 136/53 136/53 136/53 O2 Sat by Pulse 99 100 100 Oximetry 08/17/18// 08:30 08:41 08:51 Temperature Pulse Rate 71 Respiratory 15 Rate Blood Pressure 130/54 130/54 130/54 O2 Sat by Pulse 99 100 100 Oximetry 08/17/18 08/17/18/ 09:01 09:11 09:21 Temperature Pulse Rate 74 78 Respiratory 15 17 Rate Blood Pressure 130/54 139/58 139/58 O2 Sat by Pulse 98 99 100 Oximetry 08/17/18//16 08/ 09:30 09:41 09:51 Temperature Pulse Rate 72 72 73 Respiratory 15 15 15 Rate Blood Pressure 133/56 133/56 133/56 O2 Sat by Pulse 100 100 98 Oximetry 08/17/18 08/17/18 08/17/18 10:00 10:11 10:18 Temperature Pulse Rate 70 70 71 Respiratory 15 15 18 Rate Blood Pressure 126/55 126/55 126/55 O2 Sat by Pulse 99 100 100 Oximetry 08/17/18// 05/ 10:21 10:30 10:41 Temperature Pulse Rate 71 70 69 Respiratory 17 17 19 Rate Blood Pressure 126/55 130/58 130/58 O2 Sat by Pulse 100 99 100 Oximetry 08/17/18// 05/ 10:51 11:00 11:11 Temperature Pulse Rate 69 70 70 Respiratory 16 19 15 Rate Blood Pressure 130/58 139/62 139/62 O2 Sat by Pulse 100 99 100 Oximetry 08/17/18 11:21 Temperature Pulse Rate 69 Respiratory 15 Rate Blood Pressure 139/62 O2 Sat by Pulse 100 Oximetry - General Appearance General appearance: cachectic, chronically ill, intubated, frail EENT: ATNC Neck: no JVD Respiratory: Present: Clear to Ascultation Cardiology: regular, S1S2 Gastrointestinal: normal, normoactive bowel sounds Integumentary: no rash Neurologic: CN 3-12 intact, other (unresponsive off sedation. ) Musculoskeletal: other (-edema ) - Lab 08/17/18 04:55 08/16/18 11:30 Most recent lab results Calcium 6.9 mg/dL (8.4-10.2) L 08/16/18 11:30 Phosphorus 3.90 mg/dL (2.5-4.5) 08/15/18 04:05 Magnesium 2.20 mg/dL (1.7-2.3) 08/15/18 04:05 60.9 mg/dL (0.1-20.0) H 08/14/18 17:20 32 mmol/L 08/14/18 17:20 64 mg/dL (5-11.8) H 08/14/18 17:20 - Imaging Chest x-ray: pending - Allied health notes Allied health notes reviewed: nursing Medications & Allergies - Medications Allergies/Adverse Reactions: Allergies No Known Allergies Allergy (Verified 08/12/18 21:47) Active Medications: Generic Name Dose Route Start Last Admin Trade Name Freq PRN Reason Stop Dose Admin Acetaminophen 650 mg 08/13/18 11:40 08/13/18 16:09 Tylenol PO 650 mg Q6H PRN Administration Fever >101 Lipase/Protease/Amylase 1 each 08/13/18 15:55 Pancreaze 10,500 Unit FEEDTUBE PRN PRN For Clogged Feeding Tube Aspirin 325 mg 08/17/18 10:00 08/17/18 10:25 Aspirin PO 325 mg QDAY LENCHO Administration Atorvastatin Calcium 40 mg 08/14/18 22:00 08/16/18 21:14 Lipitor PO 40 mg QHS LENCHO Administration Dextrose 50 ml 08/13/18 01:34 D50w (25gm) Syringe IV PRN PRN Hypoglycemia Enoxaparin Sodium 40 mg 08/17/18 22:00 Lovenox SUB-Q QDAY@2200 [facility] Famotidine 20 mg 08/17/18 10:00 08/17/18 10:26 Pepcid PO 20 mg DAILY [facility] Administration Hydrophilic Ointment 1 applic 08/13/18 12:21 Vaseline Lip Therapy TP Q2HR PRN Dry Lips Norepinephrine 4 mg in 250 mls @ 7.5 mls/hr 08/12/18 21:00 08/14/18 11:06 Levophed Drip 4 Mg/Ns 250 Ml IV 0 mcg/min TITR LENCHO 0 mls/hr Titration Protocol 2 MCG/MIN Propofol 1,000 mg in 100 mls @ 2.177 mls/hr 08/13/18 13:00 08/15/18 06:00 Diprivan 10 Mg/Ml IV 0 mcg/kg/min TITR LENCHO 0 mls/hr Titration Protocol 5 MCG/KG/MIN Fentanyl Citrate 2,000 mcg in 100 mls @ 3.629 mls/hr 08/14/18 13:00 Fentanyl Drip Premix IV TITR [facility] Protocol 1 MCG/KG/HR Insulin Glargine 20 units 08/17/18 13:00 Lantus SUB-Q DAILY [facility] Insulin Human Lispro 0 unit 08/13/18 06:00 08/17/18 10:27 Humalog SUB-Q Not Given Q6HR [facility] Protocol Levetiracetam 1,000 mg 08/13/18 15:00 08/17/18 10:26 Keppra PO 1,000 mg BID [facility] Administration Multi-Ingred Cream/Lotion/Oil/Oint 1 applic 08/13/18 12:21 08/17/18 00:41 Artificial Tears Ophth Oint OU 1 applic Q4HR PRN Administration Dry Eye(s) Ondansetron HCl 4 mg 08/13/18 01:34 Zofran IV Q8H PRN Nausea And Vomiting Simple Syrup 15 ml 08/13/18 15:55 Simple Syrup FEEDTUBE PRN PRN Hypoglycemia Simple Syrup 30 ml 08/13/18 15:55 Simple Syrup FEEDTUBE PRN PRN Hypoglycemia Sodium Bicarbonate 325 mg 08/13/18 15:55 Sodium Bicarbonate FEEDTUBE PRN PRN For Clogged Feeding Tube Sodium Chloride 10 ml 08/13/18 10:00 08/17/18 10:34 Sodium Chloride Flush Syringe 10 Ml IV 10 ml BID LENCHO Administration Sodium Chloride 10 ml 08/13/18 01:34 Sodium Chloride Flush Syringe 10 Ml IV PRN PRN LINE FLUSH
[2018-08-17] MEDS: LANTUS SUB-Q SCH (14:10)
[2018-08-17] MEDS ORDERED: PANCREAZE DR 10,500 UNIT FEEDTUBE PRN (15:22)
[2018-08-17] MEDS ORDERED: SIMPLE SYRUP FEEDTUBE PRN ×2 (15:22)
[2018-08-17] MEDS ORDERED: SODIUM BICARBONATE FEEDTUBE PRN (15:22)
--- NOTE | 2018-08-17 16:22 | Progress Note ---
Subjective Date of service: 08/17/18 Principal diagnosis: Acute hypoxemic resp failure; S/P cardiac arrest; Seizures; DM II; H/O CVA Interval history: formal reading of the Nuclear blood flow study is dictated and does not show the criteria for brain based on complete absense of blood flow Objective - Vital Sign Vital Signs - 12hr 08/17/18 08/17/18 08/17/18 04:29 04:30 04:41 Temperature Pulse Rate 72 72 73 Respiratory 17 16 Rate Blood Pressure 144/58 134/54 134/54 O2 Sat by Pulse 100 98 100 Oximetry 08/17/18 08/17/18 08/17/18 04:51 05:00 05:11 Temperature Pulse Rate 73 71 71 Respiratory 16 16 17 Rate Blood Pressure 134/54 139/57 139/57 O2 Sat by Pulse 100 100 100 Oximetry 08/17/18 08/17/18 08/17/18 05:21 05:30 05:41 Temperature Pulse Rate 71 72 72 Respiratory 17 18 22 Rate Blood Pressure 139/57 137/58 137/58 O2 Sat by Pulse 100 100 100 Oximetry 08/17/18 08/17/18 08/17/18 05:51 06:00 06:11 Temperature Pulse Rate 72 76 72 Respiratory 16 19 18 Rate Blood Pressure 137/58 136/60 136/60 O2 Sat by Pulse 100 100 100 Oximetry 08/17/18 08/17/18 08/17/18 06:21 06:30 06:41 Temperature Pulse Rate 71 72 72 Respiratory 17 22 17 Rate Blood Pressure 136/60 147/59 147/59 O2 Sat by Pulse 100 99 100 Oximetry 08/17/18 08/17/18 08/17/18 06:50 07:00 07:10 Temperature Pulse Rate 71 73 72 Respiratory 18 18 18 Rate Blood Pressure 147/59 138/58 138/58 O2 Sat by Pulse 100 99 100 Oximetry 08/17/18 08/17/18 08/17/18 07:21 07:30 07:41 Temperature Pulse Rate 72 71 70 Respiratory 17 17 16 Rate Blood Pressure 138/58 134/53 138/58 O2 Sat by Pulse 100 100 100 Oximetry 08/17/18 08/17/18 08/17/18 07:51 08:00 08:11 Temperature 98.7 F Pulse Rate 71 72 73 Respiratory 16 16 15 Rate Blood Pressure 138/58 136/53 136/53 O2 Sat by Pulse 100 99 100 Oximetry 08/17/18 08/17/18 08/17/18 08:21 08:30 08:41 Temperature Pulse Rate 71 71 Respiratory 16 15 Rate Blood Pressure 136/53 130/54 130/54 O2 Sat by Pulse 100 99 100 Oximetry 08/17/18 08/17/18 08/17/18 08:51 09:01 09:11 Temperature Pulse Rate 74 Respiratory 15 Rate Blood Pressure 130/54 130/54 139/58 O2 Sat by Pulse 100 98 99 Oximetry 08/17/18 08/17/18 08/17/18 09:21 09:30 09:41 Temperature Pulse Rate 78 72 72 Respiratory 17 15 15 Rate Blood Pressure 139/58 133/56 133/56 O2 Sat by Pulse 100 100 100 Oximetry 08/17/18 08/17/18 08/17/18 09:51 10:00 10:11 Temperature Pulse Rate 73 70 70 Respiratory 15 15 15 Rate Blood Pressure 133/56 126/55 126/55 O2 Sat by Pulse 98 99 100 Oximetry 08/17/18 08/17/18 08/17/18 10:18 10:21 10:30 Temperature Pulse Rate 71 71 70 Respiratory 18 17 17 Rate Blood Pressure 126/55 126/55 130/58 O2 Sat by Pulse 100 100 99 Oximetry 08/17/18 08/17/18 08/17/18 10:41 10:51 11:00 Temperature Pulse Rate 69 69 70 Respiratory 19 16 19 Rate Blood Pressure 130/58 130/58 139/62 O2 Sat by Pulse 100 100 99 Oximetry 08/17/18 08/17/18 08/17/18 11:11 11:21 11:30 Temperature Pulse Rate 70 69 69 Respiratory 15 15 17 Rate Blood Pressure 139/62 139/62 138/58 O2 Sat by Pulse 100 100 99 Oximetry 08/17/18 08/17/18 08/17/18 11:41 11:50 12:00 Temperature 98.4 F Pulse Rate 70 71 69 Respiratory 18 17 18 Rate Blood Pressure 138/58 138/58 138/58 O2 Sat by Pulse 100 100 Oximetry 08/17/18/08/17/18 12:11 12:21 12:30 Temperature Pulse Rate 71 69 69 Respiratory 18 17 18 Rate Blood Pressure 138/60 133/54 O2 Sat by Pulse 100 100 99 Oximetry 08/17/18 08/17/18 08/17/18 12:41 12:51 13:00 Temperature Pulse Rate 70 70 71 Respiratory 19 18 18 Rate Blood Pressure 133/54 133/54 129/54 O2 Sat by Pulse 100 100 100 Oximetry 08/17/18 08/17/18 08/17/18 13:11 13:21 13:30 Temperature Pulse Rate 70 72 72 Respiratory 17 18 18 Rate Blood Pressure 129/54 129/54 134/56 O2 Sat by Pulse 100 100 99 Oximetry 08/17/18 08/17/18 08/17/18 13:41 13:51 14:00 Temperature Pulse Rate 69 71 72 Respiratory 18 17 18 Rate Blood Pressure 134/56 134/56 130/55 O2 Sat by Pulse 100 100 100 Oximetry 08/17/18 08/17/18 08/17/18 14:11 14:21 14:30 Temperature Pulse Rate 73 71 69 Respiratory 18 18 17 Rate Blood Pressure 130/55 130/55 130/55 O2 Sat by Pulse 100 100 100 Oximetry 08/17/18 08/17/18 08/17/18 14:41 14:51 15:00 Temperature Pulse Rate 73 72 73 Respiratory 17 18 18 Rate Blood Pressure 130/55 130/55 139/59 O2 Sat by Pulse 100 100 100 Oximetry 08/17/18 08/17/18 08/17/18 15:11 15:21 15:30 Temperature Pulse Rate 72 72 73 Respiratory 16 20 17 Rate Blood Pressure 139/59 139/59 141/59 O2 Sat by Pulse 100 100 99 Oximetry 08/17/18 08/17/18 08/17/18 15:41 15:46 15:51 Temperature 100.3 F H Pulse Rate 70 74 Respiratory 19 17 Rate Blood Pressure 141/59 141/59 O2 Sat by Pulse 100 100 Oximetry 08/17/18 16:00 Temperature Pulse Rate 71 Respiratory 20 Rate Blood Pressure 128/51 O2 Sat by Pulse 99 Oximetry - Laboratory Findings CBC and BMP: 08/17/18 04:55 08/16/18 11:30 Abnormal Lab Findings: Abnormal Labs 08/12/18 08/12/18 08/12/18 21:44 21:44 21:44 WBC 15.5 H RBC 3.12 L Hgb 8.8 L Hct 28.9 L MCHC 31 L RDW 19.5 H [place] # Seg Neutrophils % Lymphocytes % (Manual) 48.0 H Seg Neutrophils # Lymphocytes # (Manual) 7.4 H PT 17.8 H INR 1.37 H APTT D-Dimer Heparin Anti-Xa Level POC ABG pH POC ABG pCO2 POC ABG pO2 Sodium 159 H Potassium Chloride 118.5 H Carbon Dioxide BUN 34 H Creatinine Glucose 161 H POC Glucose Lactic Acid Calcium Magnesium AST Alkaline Phosphatase Total Creatine Kinase CK-MB (CK-2) Troponin T 0.105 H* C-Reactive Protein Total Protein Albumin Cholesterol LDL Cholesterol Direct HDL Cholesterol Urine WBC (Auto) Urine Creatinine Urine Total Protein Crossmatch 08/13/18 08/13/18 08/13/18 00:32 00:47 00:47 WBC RBC Hgb 9.2 L Hct 29.6 L MCHC RDW [place] # Seg Neutrophils % Lymphocytes % (Manual) Seg Neutrophils # Lymphocytes # (Manual) PT 16.5 H INR 1.25 H APTT 37.3 H D-Dimer Heparin Anti-Xa Level POC ABG pH POC ABG pCO2 POC ABG pO2 Sodium Potassium Chloride Carbon Dioxide BUN Creatinine Glucose POC Glucose Lactic Acid Calcium Magnesium AST Alkaline Phosphatase Total Creatine Kinase 211 H CK-MB (CK-2) 7.7 H Troponin T 0.169 H* D C-Reactive Protein Total Protein Albumin Cholesterol 46 L LDL Cholesterol Direct 17 L HDL Cholesterol 6 L Urine WBC (Auto) Urine Creatinine Urine Total Protein Crossmatch 08/13/18 08/13/18 08/13/18 00:50 02:25 05:34 WBC RBC Hgb Hct MCHC RDW [place] # Seg Neutrophils % Lymphocytes % (Manual) Seg Neutrophils # Lymphocytes # (Manual) PT INR APTT D-Dimer Heparin Anti-Xa Level POC ABG pH 7.503 H POC ABG pCO2 POC ABG pO2 253 H Sodium Potassium Chloride Carbon Dioxide BUN Creatinine Glucose POC Glucose Lactic Acid Calcium Magnesium AST Alkaline Phosphatase Total Creatine Kinase 311 H CK-MB (CK-2) 10.4 H Troponin T 0.283 H* D C-Reactive Protein Total Protein Albumin Cholesterol LDL Cholesterol Direct HDL Cholesterol Urine WBC (Auto) > 182.0 H Urine Creatinine Urine Total Protein Crossmatch 08/13/18 08/13/18 08/13/18 06:35 10:10 10:10 WBC RBC Hgb Hct MCHC RDW [place] # Seg Neutrophils % Lymphocytes % (Manual) Seg Neutrophils # Lymphocytes # (Manual) PT INR APTT D-Dimer Heparin Anti-Xa Level POC ABG pH 7.554 H POC ABG pCO2 33.5 L POC ABG pO2 220 H Sodium 158 H Potassium Chloride 117.1 H Carbon Dioxide BUN 53 H Creatinine 2.0 H Glucose 247 H POC Glucose Lactic Acid Calcium 8.2 L Magnesium AST Alkaline Phosphatase Total Creatine Kinase 309 H CK-MB (CK-2) 4.1 H Troponin T 0.470 H* D C-Reactive Protein Total Protein Albumin Cholesterol LDL Cholesterol Direct HDL Cholesterol Urine WBC (Auto) Urine Creatinine Urine Total Protein Crossmatch 08/13/18 08/13/18 08/13/18 12:53 12:53 17:55 WBC RBC Hgb Hct MCHC RDW [place] # Seg Neutrophils % Lymphocytes % (Manual) Seg Neutrophils # Lymphocytes # (Manual) PT INR APTT D-Dimer Heparin Anti-Xa Level POC ABG pH POC ABG pCO2 POC ABG pO2 Sodium Potassium Chloride Carbon Dioxide BUN Creatinine Glucose POC Glucose 308 H Lactic Acid 2.80 H* Calcium Magnesium 2.50 H AST Alkaline Phosphatase Total Creatine Kinase CK-MB (CK-2) Troponin T C-Reactive Protein 16.90 H Total Protein Albumin Cholesterol LDL Cholesterol Direct HDL Cholesterol Urine WBC (Auto) Urine Creatinine Urine Total Protein Crossmatch 08/13/18 08/13/18 08/13/18 20:07 21:16 23:17 WBC RBC Hgb Hct MCHC RDW [place] # Seg Neutrophils % Lymphocytes % (Manual) Seg Neutrophils # Lymphocytes # (Manual) PT INR APTT D-Dimer 2742.50 H Heparin Anti-Xa Level POC ABG pH 7.483 H POC ABG pCO2 30.8 L POC ABG pO2 150 H Sodium Potassium Chloride Carbon Dioxide BUN Creatinine Glucose POC Glucose 245 H Lactic Acid Calcium Magnesium AST Alkaline Phosphatase Total Creatine Kinase CK-MB (CK-2) Troponin T C-Reactive Protein Total Protein Albumin Cholesterol LDL Cholesterol Direct HDL Cholesterol Urine WBC (Auto) Urine Creatinine Urine Total Protein Crossmatch 08/14/18 08/14/18 08/14/18 04:03 04:03 04:56 WBC 18.2 H RBC 2.62 L Hgb 7.3 L Hct 24.5 L MCHC RDW 18.9 H [place] # 1.2 H Seg Neutrophils % 79.4 H Lymphocytes % (Manual) Seg Neutrophils # 14.5 H Lymphocytes # (Manual) PT INR APTT D-Dimer Heparin Anti-Xa Level POC ABG pH POC ABG pCO2 33.5 L POC ABG pO2 153 H Sodium 152 H Potassium 3.4 L Chloride 113.8 H Carbon Dioxide BUN 72 H Creatinine 2.7 H Glucose 239 H POC Glucose Lactic Acid Calcium 7.6 L Magnesium AST 50 H Alkaline Phosphatase 219 H Total Creatine Kinase CK-MB (CK-2) Troponin T 0.409 H* C-Reactive Protein Total Protein 6.2 L Albumin 1.9 L Cholesterol LDL Cholesterol Direct HDL Cholesterol Urine WBC (Auto) Urine Creatinine Urine Total Protein Crossmatch 08/14/18 08/14/18 08/14/18 05:18 13:38 15:35 WBC RBC Hgb Hct MCHC RDW [place] # Seg Neutrophils % Lymphocytes % (Manual) Seg Neutrophils # Lymphocytes # (Manual) PT INR APTT D-Dimer Heparin Anti-Xa Level POC ABG pH POC ABG pCO2 POC ABG pO2 Sodium 150 H Potassium 3.2 L Chloride 114.5 H Carbon Dioxide BUN 69 H Creatinine 2.3 H Glucose 247 H POC Glucose 242 H 296 H Lactic Acid Calcium 7.2 L Magnesium AST Alkaline Phosphatase Total Creatine Kinase CK-MB (CK-2) Troponin T C-Reactive Protein Total Protein Albumin Cholesterol LDL Cholesterol Direct HDL Cholesterol Urine WBC (Auto) Urine Creatinine Urine Total Protein Crossmatch 08/14/18 08/14/18 08/14/18 17:01 17:20 23:47 WBC RBC Hgb Hct MCHC RDW [place] # Seg Neutrophils % Lymphocytes % (Manual) Seg Neutrophils # Lymphocytes # (Manual) PT INR APTT D-Dimer Heparin Anti-Xa Level POC ABG pH POC ABG pCO2 POC ABG pO2 Sodium Potassium Chloride Carbon Dioxide BUN Creatinine Glucose POC Glucose 261 H 280 H Lactic Acid Calcium Magnesium AST Alkaline Phosphatase Total Creatine Kinase CK-MB (CK-2) Troponin T C-Reactive Protein Total Protein Albumin Cholesterol LDL Cholesterol Direct HDL Cholesterol Urine WBC (Auto) Urine Creatinine 60.9 H Urine Total Protein 64 H Crossmatch 08/15/18 08/15/18 08/15/18 04:05 04:05 04:05 WBC RBC Hgb 6.3 L Hct 19.7 L* MCHC RDW [place] # Seg Neutrophils % Lymphocytes % (Manual) Seg Neutrophils # Lymphocytes # (Manual) PT INR APTT D-Dimer Heparin Anti-Xa Level 0.17 L POC ABG pH POC ABG pCO2 POC ABG pO2 Sodium 146 H Potassium 3.0 L Chloride 110.6 H Carbon Dioxide BUN 64 H Creatinine 2.2 H Glucose 231 H POC Glucose Lactic Acid Calcium 7.1 L Magnesium AST Alkaline Phosphatase Total Creatine Kinase CK-MB (CK-2) Troponin T C-Reactive Protein Total Protein Albumin Cholesterol LDL Cholesterol Direct HDL Cholesterol Urine WBC (Auto) Urine Creatinine Urine Total Protein Crossmatch 08/15/18 08/15/18 08/15/18 05:21 05:26 06:35 WBC RBC Hgb Hct MCHC RDW [place] # Seg Neutrophils % Lymphocytes % (Manual) Seg Neutrophils # Lymphocytes # (Manual) PT INR APTT 79.0 H* D-Dimer Heparin Anti-Xa Level POC ABG pH 7.494 H POC ABG pCO2 POC ABG pO2 155 H Sodium Potassium Chloride Carbon Dioxide BUN Creatinine Glucose POC Glucose 271 H Lactic Acid Calcium Magnesium AST Alkaline Phosphatase Total Creatine Kinase CK-MB (CK-2) Troponin T C-Reactive Protein Total Protein Albumin Cholesterol LDL Cholesterol Direct HDL Cholesterol Urine WBC (Auto) Urine Creatinine Urine Total Protein Crossmatch 08/15/18 08/15/18 08/15/18 12:10 15:31 17:27 WBC RBC Hgb Hct MCHC RDW [place] # Seg Neutrophils % Lymphocytes % (Manual) Seg Neutrophils # Lymphocytes # (Manual) PT INR APTT D-Dimer Heparin Anti-Xa Level POC ABG pH POC ABG pCO2 POC ABG pO2 Sodium Potassium Chloride Carbon Dioxide BUN Creatinine Glucose POC Glucose 301 H 287 H Lactic Acid Calcium Magnesium AST Alkaline Phosphatase Total Creatine Kinase CK-MB (CK-2) Troponin T C-Reactive Protein Total Protein Albumin Cholesterol LDL Cholesterol Direct HDL Cholesterol Urine WBC (Auto) Urine Creatinine Urine Total Protein Crossmatch See Detail 08/15/18 08/15/18 08/16/18 21:41 23:45 04:13 WBC RBC Hgb Hct MCHC RDW [place] # Seg Neutrophils % Lymphocytes % (Manual) Seg Neutrophils # Lymphocytes # (Manual) PT INR APTT D-Dimer Heparin Anti-Xa Level 0.19 L POC ABG pH POC ABG pCO2 32.1 L POC ABG pO2 107 H Sodium Potassium Chloride Carbon Dioxide BUN Creatinine Glucose POC Glucose 163 H Lactic Acid Calcium Magnesium AST Alkaline Phosphatase Total Creatine Kinase CK-MB (CK-2) Troponin T C-Reactive Protein Total Protein Albumin Cholesterol LDL Cholesterol Direct HDL Cholesterol Urine WBC (Auto) Urine Creatinine Urine Total Protein Crossmatch 08/16/18 08/16/18 08/16/18 04:50 05:28 11:30 WBC RBC 2.67 L Hgb 8.1 L Hct 23.4 L MCHC 35 H RDW 18.3 H [place] # Seg Neutrophils % Lymphocytes % (Manual) Seg Neutrophils # Lymphocytes # (Manual) PT INR APTT D-Dimer Heparin Anti-Xa Level 0.19 L POC ABG pH POC ABG pCO2 POC ABG pO2 Sodium Potassium Chloride Carbon Dioxide BUN Creatinine Glucose POC Glucose 141 H Lactic Acid Calcium Magnesium AST Alkaline Phosphatase Total Creatine Kinase CK-MB (CK-2) Troponin T C-Reactive Protein Total Protein Albumin Cholesterol LDL Cholesterol Direct HDL Cholesterol Urine WBC (Auto) Urine Creatinine Urine Total Protein Crossmatch 08/16/18 08/16/18 08/16/18 11:30 12:00 12:01 WBC RBC Hgb Hct MCHC RDW [place] # Seg Neutrophils % Lymphocytes % (Manual) Seg Neutrophils # Lymphocytes # (Manual) PT INR APTT D-Dimer Heparin Anti-Xa Level 0.15 L POC ABG pH POC ABG pCO2 POC ABG pO2 Sodium Potassium Chloride 107.8 H Carbon Dioxide 21 L BUN 47 H Creatinine 1.6 H Glucose 221 H POC Glucose 267 H Lactic Acid Calcium 6.9 L Magnesium AST Alkaline Phosphatase Total Creatine Kinase CK-MB (CK-2) Troponin T C-Reactive Protein Total Protein Albumin Cholesterol LDL Cholesterol Direct HDL Cholesterol Urine WBC (Auto) Urine Creatinine Urine Total Protein Crossmatch 08/16/18 08/16/18 08/16/18 17:23 20:01 23:13 WBC RBC Hgb Hct MCHC RDW [place] # Seg Neutrophils % Lymphocytes % (Manual) Seg Neutrophils # Lymphocytes # (Manual) PT INR APTT D-Dimer Heparin Anti-Xa Level 0.26 L POC ABG pH POC ABG pCO2 POC ABG pO2 Sodium Potassium Chloride Carbon Dioxide BUN Creatinine Glucose POC Glucose 245 H 256 H Lactic Acid Calcium Magnesium AST Alkaline Phosphatase Total Creatine Kinase CK-MB (CK-2) Troponin T C-Reactive Protein Total Protein Albumin Cholesterol LDL Cholesterol Direct HDL Cholesterol Urine WBC (Auto) Urine Creatinine Urine Total Protein Crossmatch 08/17/18 08/17/18 08/17/18 04:29 04:55 05:34 WBC RBC Hgb 8.2 L Hct 24.3 L MCHC RDW [place] # Seg Neutrophils % Lymphocytes % (Manual) Seg Neutrophils # Lymphocytes # (Manual) PT INR APTT D-Dimer Heparin Anti-Xa Level POC ABG pH POC ABG pCO2 32.4 L POC ABG pO2 108 H Sodium Potassium Chloride Carbon Dioxide BUN Creatinine Glucose POC Glucose 268 H Lactic Acid Calcium Magnesium AST Alkaline Phosphatase Total Creatine Kinase CK-MB (CK-2) Troponin T C-Reactive Protein Total Protein Albumin Cholesterol LDL Cholesterol Direct HDL Cholesterol Urine WBC (Auto) Urine Creatinine Urine Total Protein Crossmatch 08/17/18 08/17/18 11:54 13:44 WBC RBC Hgb Hct MCHC RDW [place] # Seg Neutrophils % Lymphocytes % (Manual) Seg Neutrophils # Lymphocytes # (Manual) PT INR APTT D-Dimer Heparin Anti-Xa Level POC ABG pH POC ABG pCO2 32.7 L POC ABG pO2 142 H Sodium Potassium Chloride Carbon Dioxide BUN Creatinine Glucose POC Glucose 295 H Lactic Acid Calcium Magnesium AST Alkaline Phosphatase Total Creatine Kinase CK-MB (CK-2) Troponin T C-Reactive Protein Total Protein Albumin Cholesterol LDL Cholesterol Direct HDL Cholesterol Urine WBC (Auto) Urine Creatinine Urine Total Protein Crossmatch
--- NOTE | 2018-08-17 19:22 | Consultation ---
History of Present Illness Consult date: 08/17/18 Chief complaint: VDRF - History of present illness History of present illness: 77 yo M with hx of respiratory failure and trach placement, CVA was brought to the ER on 08/12/18 after being found unresponsive at his [facility]. Time down is unknown per records. The patient is on the vent and unresponsive, all history is obtained from the chart. Patient had multiple episodes of arrest/pulselessness. He has been on the vent since then without any improvement. Per ER notes the patient was bagged via tracheostomy which continue d to have low tidal volumes and so the patient with orally intubated after which tidal volumes improved. Past History Past Medical History: diabetes, hypertension, hyperlipidemia, seizures, stroke Past Surgical History: Other (trach and PEG) Social history: other (at [facility]). denies: smoking, alcohol abuse, prescription drug abuse, IV drug use Family history: hypertension Medications and Allergies Allergies Allergy/AdvReac Type Severity Reaction Status Date / Time No Known Allergies Allergy Verified 08/12/18 21:47 Active Meds: Active Medications Acetaminophen (Tylenol) 650 mg PO Q6H PRN PRN Reason: Fever >101 Last Admin: 08/13/18 16:09 Dose: 650 mg Documented by: Lipase/Protease/Amylase (Pancreaze Dr 10,500 Unit) 1 each FEEDTUBE PRN PRN PRN Reason: For Clogged Feeding Tube Aspirin (Aspirin) 325 mg PO QDAY [facility] Last Admin: 08/17/18 10:25 Dose: 325 mg Documented by: Atorvastatin Calcium (Lipitor) 40 mg PO QHS [facility] Last Admin: 08/16/18 21:14 Dose: 40 mg Documented by: Dextrose (D50w (25gm) Syringe) 50 ml IV PRN PRN PRN Reason: Hypoglycemia Enoxaparin Sodium (Lovenox) 40 mg SUB-Q QDAY@2200 [facility] Famotidine (Pepcid) 20 mg PO DAILY [facility] Last Admin: 08/17/18 10:26 Dose: 20 mg Documented by: Hydrophilic Ointment (Vaseline Lip Therapy) 1 applic TP Q2HR PRN PRN Reason: Dry Lips Norepinephrine (Levophed Drip 4 Mg/Ns 250 Ml) 4 mg in 250 mls @ 7.5 mls/hr IV TITR [facility]; Protocol Last Titration: 08/14/18 11:06 Dose: 0 mcg/min, 0 mls/hr Documented by: Propofol (Diprivan 10 Mg/Ml) 1,000 mg in 100 mls @ 2.177 mls/hr IV TITR [facility]; Protocol Last Titration: 08/15/18 06:00 Dose: 0 mcg/kg/min, 0 mls/hr Documented by: Fentanyl Citrate (Fentanyl Drip Premix) 2,000 mcg in 100 mls @ 3.629 mls/hr IV TITR [facility]; Protocol Insulin Glargine (Lantus) 20 units SUB-Q DAILY [facility] Last Admin: 08/17/18 14:10 Dose: 20 units Documented by: Insulin Human Lispro (Humalog) 0 unit SUB-Q Q6HR [facility]; Protocol Last Admin: 08/17/18 17:58 Dose: 4 unit Documented by: Levetiracetam (Keppra) 1,000 mg PO BID [facility] Last Admin: 08/17/18 10:26 Dose: 1,000 mg Documented by: Multi-Ingred Cream/Lotion/Oil/Oint (Artificial Tears Ophth Oint) 1 applic OU Q4HR PRN PRN Reason: Dry Eye(s) Last Admin: 08/17/18 00:41 Dose: 1 applic Documented by: Ondansetron HCl (Zofran) 4 mg IV Q8H PRN PRN Reason: Nausea And Vomiting Simple Syrup (Simple Syrup) 15 ml FEEDTUBE PRN PRN PRN Reason: Hypoglycemia Simple Syrup (Simple Syrup) 30 ml FEEDTUBE PRN PRN PRN Reason: Hypoglycemia Sodium Bicarbonate (Sodium Bicarbonate) 325 mg FEEDTUBE PRN PRN PRN Reason: For Clogged Feeding Tube Sodium Chloride (Sodium Chloride Flush Syringe 10 Ml) 10 ml IV BID [facility] Last Admin: 08/17/18 10:34 Dose: 10 ml Documented by: Sodium Chloride (Sodium Chloride Flush Syringe 10 Ml) 10 ml IV PRN PRN PRN Reason: LINE FLUSH Review of Systems ROS unobtainable: due to endotracheal tube, due to mental status Exam Vital Signs Pulse Ox 100 08/12/18 21:02 Narrative exam: Gen: on vent. Unresponsive. ENT: ETT in place. Stoma at prior tracheostomy site c/d/i. CV: s1, s2+ resp: on vent, CPAP Abd: soft, NT, ND. PEG in place, site c/d/i. TF running Ext: +edema Neuro: no corneal or gag reflex Results - Labs 08/17/18 04:55 08/16/18 11:30 Abnormal lab results 08/16/18 08/16/18 08/17/18 Range/Units 20:01 23:13 04:29 Hgb (11.8-15.2) gm/dl Hct (35.5-45.6) % Heparin Anti-Xa Level 0.26 L (0.3-0.7) U.I./ml POC ABG pCO2 32.4 L (35-45) POC ABG pO2 108 H (80-105) POC Glucose 256 H (70-105) 08/17/18 08/17/18 08/17/18 Range/Units 04:55 05:34 11:54 Hgb 8.2 L (11.8-15.2) gm/dl Hct 24.3 L (35.5-45.6) % Heparin Anti-Xa Level (0.3-0.7) U.I./ml POC ABG pCO2 (35-45) POC ABG pO2 (80-105) POC Glucose 268 H 295 H (70-105) 08/17/18 08/17/18 Range/Units 13:44 17:24 Hgb (11.8-15.2) gm/dl Hct (35.5-45.6) % Heparin Anti-Xa Level (0.3-0.7) U.I./ml POC ABG pCO2 32.7 L (35-45) POC ABG pO2 142 H (80-105) POC Glucose 283 H (70-105) - Imaging Chest x-ray: report reviewed, image reviewed Assessment and Plan 77 yo M with 1. VDRF 2. s/p cardiac arrest 3. hx CVA 4. seizures Plan: 1. continue vent support per ICU team 2. continue TF 3. cranial dopper - decreased cranial blood flow, but not absent 4. case management - family meeting being arranged for tomorrow. I will try to attend family meeting to discuss tracheostomy placement. Thank you, please call with questions or concerns.
[2018-08-17] MEDS: LOVENOX SUB-Q SCH (21:58)
[2018-08-18] MEDS: HumaLOG SUB-Q SCH ×5 (00:59→23:46)
--- NOTE | 2018-08-18 03:08 | XRay Report ---
PROCEDURE: XR CHEST 1V AP TECHNIQUE: Chest radiograph single view. HISTORY: follow up respiratory failure COMPARISONS: 08/17/2018 . FINDINGS: Heart: Normal. Mediastinum/Vessels: Normal. Lungs/Pleural space: There are no infiltrates or effusions.. Bony thorax: No acute osseous abnormality. Life support devices: The tip of the right-sided PICC line is in the mid SVC. The tip of the ET tube is 7 cm above the denton.. IMPRESSION: No acute infiltrates or effusions. The tip of the ET tube is 7 cm above the denton.. This document is electronically signed by Reynold Garcia MD., Aug 18 2018 03:07:04 AM ET
[2018-08-18] MEDS: PEPCID PO SCH (09:37)
[2018-08-18] MEDS: LANTUS SUB-Q SCH (09:37)
[2018-08-18] MEDS: KEPPRA PO SCH ×2 (09:37→21:35)
[2018-08-18] MEDS: ASPIRIN PO SCH (09:37)
[2018-08-18] MEDS: SODIUM CHLORIDE FLUSH SYRINGE 10 ML IV SCH ×2 (09:39)
--- NOTE | 2018-08-18 10:58 | Progress Note ---
Assessment and Plan - Patient Problems (1) MAYLIN (acute kidney injury) Current Visit: Yes Status: Acute Plan to address problem: Likely pre-renal injury vs ischemic ATN in the setting of cardiac arrest. Renal function remains stable. Continue current supportive care/management. Avoid nephrotoxins, maintain MAP >65mmHg. (2) Hypokalemia Current Visit: Yes Status: Acute Plan to address problem: Replete per protocol. (3) Acute and chronic respiratory failure Current Visit: Yes Status: Acute Qualifiers: Respiratory failure complication: hypoxia Qualified Code(s): J96.21 - Acute and chronic respiratory failure with hypoxia Plan to address problem: Management per primary attending/pulmonology. (4) Hypernatremia Current Visit: Yes Status: Acute Plan to address problem: Improvement noted, (5) Cardiac arrest Current Visit: Yes Status: Acute Plan to address problem: Off pressors at this time. Remains intubated, unresponsive off sedation. Poor brainstem reflexes per nursing staff. No change in overall mental status at this time. (6) Type 2 diabetes mellitus without complications Current Visit: Yes Status: Acute Plan to address problem: DM management per primary attending. Subjective Date of service: 08/18/18 Principal diagnosis: Acute hypoxemic resp failure; S/P cardiac arrest; Seizures; DM II; H/O CVA Interval history: No acute changes overnight. General surgery consult note reviewed. Plantar possible tracheostomy. Remains on ventilator and off of sedation without much change in his overall mental status. Renal function remains stable. Objective - Vital Signs Vital signs: Vital Signs - 12hr 08/17/18 08/17/18 08/17/18 23:00 23:11 23:12 Temperature Pulse Rate 62 62 63 Respiratory 24 19 19 Rate Blood Pressure 130/49 127/49 130/49 O2 Sat by Pulse 100 100 100 Oximetry 08/17/18 08/17/18 08/17/18 23:21 23:30 23:41 Temperature Pulse Rate 64 62 62 Respiratory 19 16 22 Rate Blood Pressure 127/49 133/51 130/49 O2 Sat by Pulse 100 100 100 Oximetry 08/17/18 08/18/18 08/18/18 23:51 00:00 00:11 Temperature Pulse Rate 61 66 63 Respiratory 18 18 19 Rate Blood Pressure 130/49 128/53 133/51 O2 Sat by Pulse 100 100 100 Oximetry 08/18/18 08/18/1819 00:21 00:30 00:41 Temperature Pulse Rate 66 63 65 Respiratory 17 19 20 Rate Blood Pressure 133/51 127/51 127/51 O2 Sat by Pulse 100 100 100 Oximetry 08/18/18 08/18/18 08/18/18 00:51 01:00 01:11 Temperature Pulse Rate 64 62 61 Respiratory 16 20 17 Rate Blood Pressure 127/51 125/53 125/53 O2 Sat by Pulse 100 100 100 Oximetry 08/18/18 08/18/18 08/18/18 01:21 01:31 01:41 Temperature Pulse Rate 77 73 Respiratory 18 17 Rate Blood Pressure 125/53 139/80 139/80 O2 Sat by Pulse 100 100 100 Oximetry 08/18/18 08/18/18 08/18/18 01:51 02:01 02:11 Temperature Pulse Rate 69 66 65 Respiratory 15 14 19 Rate Blood Pressure 139/80 108/43 139/80 O2 Sat by Pulse 97 95 97 Oximetry 08/18/18 08/18/18 08/18/18 02:21 02:30 02:41 Temperature Pulse Rate 63 61 64 Respiratory 17 16 17 Rate Blood Pressure 139/80 116/51 108/43 O2 Sat by Pulse 97 96 98 Oximetry 08/18/18 08/18/18 08/18/18 02:51 03:01 03:11 Temperature Pulse Rate 63 61 64 Respiratory 15 16 16 Rate Blood Pressure 108/43 121/51 116/51 O2 Sat by Pulse 98 97 99 Oximetry 08/18/18 08/18/18 08/18/18 03:21 03:29 03:30 Temperature 98.6 F Pulse Rate 62 62 Respiratory 17 17 Rate Blood Pressure 116/51 124/52 O2 Sat by Pulse 100 99 Oximetry 08/18/18 08/18/18 08/18/18 03:41 03:51 04:00 Temperature Pulse Rate 63 65 63 Respiratory 15 16 17 Rate Blood Pressure 121/51 121/51 131/52 O2 Sat by Pulse 100 100 99 Oximetry 08/18/18 08/18/18 08/18/18 04:11 04:21 04:30 Temperature Pulse Rate 60 62 61 Respiratory 16 15 18 Rate Blood Pressure 131/52 131/52 127/53 O2 Sat by Pulse 100 100 99 Oximetry 08/18/18 08/18/18 08/18/18 04:41 04:51 05:00 Temperature Pulse Rate 59 L 60 61 Respiratory 17 17 18 Rate Blood Pressure 127/53 131/52 128/53 O2 Sat by Pulse 100 100 99 Oximetry 08/18/18 08/18/18 08/18/18 05:11 05:21 05:30 Temperature Pulse Rate 61 63 66 Respiratory 16 15 16 Rate Blood Pressure 128/53 128/53 133/54 O2 Sat by Pulse 100 100 100 Oximetry 08/18/18 08/18/18 08/18/18 05:41 05:51 06:00 Temperature Pulse Rate 63 59 L 59 L Respiratory 17 17 17 Rate Blood Pressure 133/54 133/54 129/54 O2 Sat by Pulse 100 100 100 Oximetry 08/18/18 08/18/18 08/18/18 06:11 06:21 06:30 Temperature Pulse Rate 61 62 61 Respiratory 15 17 17 Rate Blood Pressure 129/54 129/54 132/50 O2 Sat by Pulse 100 100 100 Oximetry 08/18/18 08/18/18 08/18/18 06:41 06:51 07:00 Temperature Pulse Rate 60 62 61 Respiratory 18 14 17 Rate Blood Pressure 132/50 132/50 129/56 O2 Sat by Pulse 100 100 100 Oximetry 08/18/18 08/18/18 08/18/18 08:00 09:35 09:40 Temperature 98.8 F Pulse Rate 62 59 L Respiratory 18 Rate Blood Pressure 136/56 136/56 O2 Sat by Pulse 100 100 Oximetry - General Appearance General appearance: cachectic, chronically ill, intubated, frail EENT: ATNC Neck: no JVD Respiratory: Present: Decreased Breath Sounds Cardiology: regular, S1S2 Gastrointestinal: normoactive bowel sounds Integumentary: no rash Neurologic: other (unresponsive off sedation) - Lab 08/17/18 04:55 08/16/18 11:30 Most recent lab results Calcium 6.9 mg/dL (8.4-10.2) L 08/16/18 11:30 Phosphorus 3.90 mg/dL (2.5-4.5) 08/15/18 04:05 Magnesium 2.20 mg/dL (1.7-2.3) 08/15/18 04:05 60.9 mg/dL (0.1-20.0) H 08/14/18 17:20 32 mmol/L 08/14/18 17:20 64 mg/dL (5-11.8) H 08/14/18 17:20 - Allied health notes Allied health notes reviewed: nursing Medications & Allergies - Medications Allergies/Adverse Reactions: Allergies No Known Allergies Allergy (Verified 08/12/18 21:47) Active Medications: Generic Name Dose Route Start Last Admin Trade Name Freq PRN Reason Stop Dose Admin Acetaminophen 650 mg 08/13/18 11:40 08/13/18 16:09 Tylenol PO 650 mg Q6H PRN Administration Fever >101 Lipase/Protease/Amylase 1 each 08/13/18 15:[address] 10,500 Unit FEEDTUBE PRN PRN For Clogged Feeding Tube Aspirin 325 mg 08/17/18 10:00 08/18/18 09:37 Aspirin PO 325 mg QDAY LENCHO Administration Atorvastatin Calcium 40 mg 08/14/18 22:00 08/17/18 21:59 Lipitor PO 40 mg QHS LENCHO Administration Dextrose 50 ml 08/13/18 01:34 D50w (25gm) Syringe IV PRN PRN Hypoglycemia Enoxaparin Sodium 40 mg 08/17/18 22:00 08/17/18 21:58 Lovenox SUB-Q 40 mg QDAY@2200 LENCHO Administration Famotidine 20 mg 08/17/18 10:00 08/18/18 09:37 Pepcid PO 20 mg DAILY LENCHO Administration Hydrophilic Ointment 1 applic 08/13/18 12:21 Vaseline Lip Therapy TP Q2HR PRN Dry Lips Propofol 1,000 mg in 100 mls @ 2.177 mls/hr 08/13/18 13:00 08/15/18 06:00 Diprivan 10 Mg/Ml IV 0 mcg/kg/min TITR LENCHO 0 mls/hr Titration Protocol 5 MCG/KG/MIN Fentanyl Citrate 2,000 mcg in 100 mls @ 3.629 mls/hr 08/14/18 13:00 Fentanyl Drip Premix IV TITR LENCHO Protocol 1 MCG/KG/HR Insulin Glargine 20 units 08/17/18 13:00 08/18/18 09:37 Lantus SUB-Q 20 units DAILY LENCHO Administration Insulin Human Lispro 0 unit 08/13/18 06:00 08/18/18 06:58 Humalog SUB-Q 4 unit Q6HR LENCHO Administration Protocol Levetiracetam 1,000 mg 08/13/18 15:00 08/18/18 09:37 Keppra PO 1,000 mg BID LENCHO Administration Multi-Ingred Cream/Lotion/Oil/Oint 1 applic 08/13/18 12:21 08/17/18 00:41 Artificial Tears Ophth Oint OU 1 applic Q4HR PRN Administration Dry Eye(s) Ondansetron HCl 4 mg 08/13/18 01:34 Zofran IV Q8H PRN Nausea And Vomiting Simple Syrup 15 ml 08/13/18 15:55 Simple Syrup FEEDTUBE PRN PRN Hypoglycemia Simple Syrup 30 ml 08/13/18 15:55 Simple Syrup FEEDTUBE PRN PRN Hypoglycemia Sodium Bicarbonate 325 mg 08/13/18 15:55 Sodium Bicarbonate FEEDTUBE PRN PRN For Clogged Feeding Tube Sodium Chloride 10 ml 08/13/18 10:00 08/18/18 09:39 Sodium Chloride Flush Syringe 10 Ml IV 10 ml BID LENCHO Administration Sodium Chloride 10 ml 08/13/18 01:34 Sodium Chloride Flush Syringe 10 Ml IV PRN PRN LINE FLUSH
--- NOTE | 2018-08-18 11:06 | Progress Note ---
Assessment and Plan Acute hypoxemic respiratory failure on chronic. Status post cardiac arrest. Seizure disorder with breakthrough seizures. History of diabetes. History of cerebrovascular accident. Oropharyngeal dysphagia. History of seizures. (AMS is rate limiting step to safe extubation at this point) - continue daily SBT's as tolerated (not tolerating well) - tracheostomy consult placed (appreciate surgery input) - continue to rest qhs on MVS at set rate at 12/min - chest tube dislodged but no recurrent pneumothorax - neurology evaluation ongoing (pupils reactive sluggishly) - sedation target for RASS 0 to -1 (daily SAT's as tolerated) - continue Keppra for seizures with prn ativan IV for breakthrough - continue GI & VTE prophylaxis - continue bronchodilators with pulmonary hygiene per RT - continue to wean supplemental oxygen to keep O2 sats 88-90% - Lung protective strategies - VAP bundle addressed - Continue cardioprotective measures - Replete electrolytes as indicated - Continue to rest at night on full MVS - Monitor renal indices closely - Avoid nephrotoxic agents, adjust all medications for CrCL - Strict intake and output monitoring - continue enteral nutrition as tolerated - Increased lantus to 30 units SQ daily for persistent hyperglycemia - continue accuchecks with glycemic control per SSI for target glucose of 140- 180 mg/dL - Maintenance of sleep -wake cycle - Mobility as tolerated by hemodynamics - Influenza and pneumonia vaccination per protocol .... he will need a tracheostomy if continued care is preferred by his next of kin and i will discuss with her next 24 hours PROGNOSIS: GUARDED CONDITION: CRITICAL CODE STATUS: FULL CODE The high probability of a clinically significant, sudden or life-threatening deterioration of the [respiratory, neurology, renal] system(s) required my full and direct attention, intervention and personal management. The aggregate critical care time was [40] minutes without overlap. Time includes spent on; [x] Data Review and interpretation [x] Patient assessment and monitoring of vital signs [x] Documentation [x] Medication orders and management Subjective Date of service: 08/18/18 Principal diagnosis: Acute hypoxemic resp failure; S/P cardiac arrest; Seizures; DM II; H/O CVA Interval history: Patient is seen today for: Acute hypoxemic respiratory failure on chronic; Status post cardiac arrest; Seizure disorder with breakthrough seizures; History of diabetes; History of cerebrovascular accident; Oropharyngeal dysphagia; History of seizures. Seen and examined at bedside; 24hour events reviewed; nursing and respiratory care staff consulted; no adverse overnight events reported to me; remains on MVS; discussed at length with patients re: need for tracheostomy; AMS is persistent; now tolerating some SBT's; no emesis or overt aspiration; no fevers or chills reported and no seizure activity Objective Vital Signs - 12hr 08/17/18 08/17/18 08/17/18 23:11 23:12 23:21 Temperature Pulse Rate 62 63 64 Respiratory 19 19 19 Rate Blood Pressure 127/49 130/49 127/49 O2 Sat by Pulse 100 100 100 Oximetry 08/17/18 08/17/18 08/17/18 23:30 23:41 23:51 Temperature Pulse Rate 62 62 61 Respiratory 16 22 18 Rate Blood Pressure 133/51 130/49 130/49 O2 Sat by Pulse 100 100 100 Oximetry 08/18/18 08/18/18 08/18/18 00:00 00:11 00:21 Temperature Pulse Rate 66 63 66 Respiratory 18 19 17 Rate Blood Pressure 128/53 133/51 133/51 O2 Sat by Pulse 100 100 100 Oximetry 08/18/18 08/18/18 08/18/18 00:30 00:41 00:51 Temperature Pulse Rate 63 65 64 Respiratory 19 20 16 Rate Blood Pressure 127/51 127/51 127/51 O2 Sat by Pulse 100 100 100 Oximetry 08/18/18 08/18/18 08/18/18 01:00 01:11 01:21 Temperature Pulse Rate 62 61 Respiratory 20 17 Rate Blood Pressure 125/53 125/53 125/53 O2 Sat by Pulse 100 100 100 Oximetry 08/18/18 08/18/18 08/18/18 01:31 01:41 01:51 Temperature Pulse Rate 77 73 69 Respiratory 18 17 15 Rate Blood Pressure 139/80 139/80 139/80 O2 Sat by Pulse 100 100 97 Oximetry 08/18/18 08/18/18 08/18/18 02:01 02:11 02:21 Temperature Pulse Rate 66 65 63 Respiratory 14 19 17 Rate Blood Pressure 108/43 139/80 139/80 O2 Sat by Pulse 95 97 97 Oximetry 08/18/18 08/18/18 08/18/18 02:30 02:41 02:51 Temperature Pulse Rate 61 64 63 Respiratory 16 17 15 Rate Blood Pressure 116/51 108/43 108/43 O2 Sat by Pulse 96 98 98 Oximetry 05/21/19 05/21/19 05/21/19 03:01 03:11 03:21 Temperature Pulse Rate 61 64 62 Respiratory 16 16 17 Rate Blood Pressure 121/51 116/51 116/51 O2 Sat by Pulse 97 99 100 Oximetry 08/18/18 08/18/18 08/18/18 03:29 03:30 03:41 Temperature 98.6 F Pulse Rate 62 63 Respiratory 17 15 Rate Blood Pressure 124/52 121/51 O2 Sat by Pulse 99 100 Oximetry 08/18/18 08/18/18 08/18/18 03:51 04:00 04:11 Temperature Pulse Rate 65 63 60 Respiratory 16 17 16 Rate Blood Pressure 121/51 131/52 131/52 O2 Sat by Pulse 100 99 100 Oximetry 08/18/18 08/18/18 08/18/18 04:21 04:30 04:41 Temperature Pulse Rate 62 61 59 L Respiratory 15 18 17 Rate Blood Pressure 131/52 127/53 127/53 O2 Sat by Pulse 100 99 100 Oximetry 08/18/18 08/18/18 08/18/18 04:51 05:00 05:11 Temperature Pulse Rate 60 61 61 Respiratory 17 18 16 Rate Blood Pressure 131/52 128/53 128/53 O2 Sat by Pulse 100 99 100 Oximetry 08/18/18 08/18/18 08/18/18 05:21 05:30 05:41 Temperature Pulse Rate 63 66 63 Respiratory 15 16 17 Rate Blood Pressure 128/53 133/54 133/54 O2 Sat by Pulse 100 100 100 Oximetry 08/18/18 08/18/18 08/18/18 05:51 06:00 06:11 Temperature Pulse Rate 59 L 59 L 61 Respiratory 17 17 15 Rate Blood Pressure 133/54 129/54 129/54 O2 Sat by Pulse 100 100 100 Oximetry 08/18/18 08/18/18 08/18/18 06:21 06:30 06:41 Temperature Pulse Rate 62 61 60 Respiratory 17 17 18 Rate Blood Pressure 129/54 132/50 132/50 O2 Sat by Pulse 100 100 100 Oximetry 08/18/18 08/18/18 08/18/18 06:51 07:00 07:11 Temperature Pulse Rate 62 61 62 Respiratory 14 17 15 Rate Blood Pressure 132/50 129/56 129/56 O2 Sat by Pulse 100 100 100 Oximetry 08/18/18 08/18/18 08/18/18 07:21 07:30 07:41 Temperature Pulse Rate 61 63 60 Respiratory 16 16 15 Rate Blood Pressure 132/50 124/55 124/55 O2 Sat by Pulse 100 100 100 Oximetry 08/18/18 08/18/18 08/18/18 07:51 08:00 08:11 Temperature 98.8 F Pulse Rate 60 61 61 Respiratory 14 13 14 Rate Blood Pressure 124/55 136/56 136/56 O2 Sat by Pulse 100 100 100 Oximetry 08/18/18 08/18/18 08/18/18 08:21 08:30 08:41 Temperature Pulse Rate 59 L 62 61 Respiratory 14 15 14 Rate Blood Pressure 136/56 137/58 137/58 O2 Sat by Pulse 100 100 100 Oximetry 08/18/18 08/18/18 08/18/18 08:51 09:00 09:11 Temperature Pulse Rate 62 61 60 Respiratory 15 16 16 Rate Blood Pressure 137/58 134/57 134/57 O2 Sat by Pulse 100 100 100 Oximetry 08/18/18 08/18/18 08/18/18 09:21 09:30 09:35 Temperature Pulse Rate 61 61 62 Respiratory 17 18 Rate Blood Pressure 137/58 136/56 136/56 O2 Sat by Pulse 100 100 100 Oximetry 08/18/18 08/18/18 08/18/18 09:40 09:41 09:51 Temperature Pulse Rate 59 L 59 L 60 Respiratory 18 14 18 Rate Blood Pressure 136/56 136/56 136/56 O2 Sat by Pulse 100 100 100 Oximetry 08/18/18 08/18/18 08/18/18 10:00 10:11 10:21 Temperature Pulse Rate 58 L 64 63 Respiratory 16 15 15 Rate Blood Pressure 132/56 132/56 132/56 O2 Sat by Pulse 100 100 100 Oximetry 08/18/18 08/18/18 08/18/18 10:30 10:41 10:51 Temperature Pulse Rate 75 67 58 L Respiratory 16 12 20 Rate Blood Pressure 125/69 125/69 125/69 O2 Sat by Pulse 97 99 99 Oximetry 08/18/18 11:00 Temperature Pulse Rate 57 L Respiratory 16 Rate Blood Pressure 121/53 O2 Sat by Pulse 98 Oximetry Constitutional: no acute distress, other (Elderly looking AAM, normocephalic resting in bed on MVS) Eyes: non-icteric ENT: oropharynx moist, other (ETT 23-24 cm JOVI) Neck: supple, no lymphadenopathy, no JVD, other (no thyromegaly) Effort: mildly labored Ascultation: Bilateral: diminished breath sounds, rhonchi Percussion: Bilateral: not dull Cardiovascular: regular rate and rhythm Gastrointestinal: normoactive bowel sounds, soft, non-tender, non-distended Integumentary: normal Extremities: no cyanosis, pulses normal, no ischemia or petechiae, edema (trace ) Neurologic: unable to assess, other (slight pupillary constriction to light) Psychiatric: other (unable to assess) CBC and BMP: 08/19/18 05:16 08/19/18 05:16 ABG, PT/INR, D-dimer: ABG POC ABG pH 7.409 (7.35-7.45) 08/18/18 04:15 POC ABG pCO2 35.2 (35-45) 08/18/18 04:15 POC ABG pO2 115 (80-105) H 08/18/18 04:15 POC ABG HCO3 22.3 (22-26 mml/L) 08/18/18 04:15 POC ABG Total CO2 23 (23-27mmol/L) 08/18/18 04:15 POC ABG O2 Sat 99 08/18/18 04:15 PT/INR, D-dimer PT 16.5 Sec. (12.2-14.9) H 08/13/18 00:47 INR 1.25 (0.87-1.13) H 08/13/18 00:47 2742.50 ng/mlDDU (0-234) H 08/13/18 20:07 Abnormal lab findings: Abnormal Labs 08/12/18 08/12/18 08/12/18 21:44 21:44 21:44 WBC 15.5 H RBC 3.12 L Hgb 8.8 L Hct 28.9 L MCHC 31 L RDW 19.5 H [place] # Seg Neutrophils % Lymphocytes % (Manual) 48.0 H Seg Neutrophils # Lymphocytes # (Manual) 7.4 H PT 17.8 H INR 1.37 H APTT D-Dimer Heparin Anti-Xa Level POC ABG pH POC ABG pCO2 POC ABG pO2 Sodium 159 H Potassium Chloride 118.5 H Carbon Dioxide BUN 34 H Creatinine Glucose 161 H POC Glucose Lactic Acid Calcium Magnesium AST Alkaline Phosphatase Total Creatine Kinase CK-MB (CK-2) Troponin T 0.105 H* C-Reactive Protein Total Protein Albumin Cholesterol LDL Cholesterol Direct HDL Cholesterol Urine WBC (Auto) Urine Creatinine Urine Total Protein Crossmatch 08/13/18 08/13/18 08/13/18 00:32 00:47 00:47 WBC RBC Hgb 9.2 L Hct 29.6 L MCHC RDW [place] # Seg Neutrophils % Lymphocytes % (Manual) Seg Neutrophils # Lymphocytes # (Manual) PT 16.5 H INR 1.25 H APTT 37.3 H D-Dimer Heparin Anti-Xa Level POC ABG pH POC ABG pCO2 POC ABG pO2 Sodium Potassium Chloride Carbon Dioxide BUN Creatinine Glucose POC Glucose Lactic Acid Calcium Magnesium AST Alkaline Phosphatase Total Creatine Kinase 211 H CK-MB (CK-2) 7.7 H Troponin T 0.169 H* D C-Reactive Protein Total Protein Albumin Cholesterol 46 L LDL Cholesterol Direct 17 L HDL Cholesterol 6 L Urine WBC (Auto) Urine Creatinine Urine Total Protein Crossmatch 08/13/18 08/13/18 08/13/18 00:50 02:25 05:34 WBC RBC Hgb Hct MCHC RDW [place] # Seg Neutrophils % Lymphocytes % (Manual) Seg Neutrophils # Lymphocytes # (Manual) PT INR APTT D-Dimer Heparin Anti-Xa Level POC ABG pH 7.503 H POC ABG pCO2 POC ABG pO2 253 H Sodium Potassium Chloride Carbon Dioxide BUN Creatinine Glucose POC Glucose Lactic Acid Calcium Magnesium AST Alkaline Phosphatase Total Creatine Kinase 311 H CK-MB (CK-2) 10.4 H Troponin T 0.283 H* D C-Reactive Protein Total Protein Albumin Cholesterol LDL Cholesterol Direct HDL Cholesterol Urine WBC (Auto) > 182.0 H Urine Creatinine Urine Total Protein Crossmatch 08/13/18 08/13/18 08/13/18 06:35 10:10 10:10 WBC RBC Hgb Hct MCHC RDW [place] # Seg Neutrophils % Lymphocytes % (Manual) Seg Neutrophils # Lymphocytes # (Manual) PT INR APTT D-Dimer Heparin Anti-Xa Level POC ABG pH 7.554 H POC ABG pCO2 33.5 L POC ABG pO2 220 H Sodium 158 H Potassium Chloride 117.1 H Carbon Dioxide BUN 53 H Creatinine 2.0 H Glucose 247 H POC Glucose Lactic Acid Calcium 8.2 L Magnesium AST Alkaline Phosphatase Total Creatine Kinase 309 H CK-MB (CK-2) 4.1 H Troponin T 0.470 H* D C-Reactive Protein Total Protein Albumin Cholesterol LDL Cholesterol Direct HDL Cholesterol Urine WBC (Auto) Urine Creatinine Urine Total Protein Crossmatch 08/13/18 08/13/18 08/13/18 12:53 12:53 17:55 WBC RBC Hgb Hct MCHC RDW [place] # Seg Neutrophils % Lymphocytes % (Manual) Seg Neutrophils # Lymphocytes # (Manual) PT INR APTT D-Dimer Heparin Anti-Xa Level POC ABG pH POC ABG pCO2 POC ABG pO2 Sodium Potassium Chloride Carbon Dioxide BUN Creatinine Glucose POC Glucose 308 H Lactic Acid 2.80 H* Calcium Magnesium 2.50 H AST Alkaline Phosphatase Total Creatine Kinase CK-MB (CK-2) Troponin T C-Reactive Protein 16.90 H Total Protein Albumin Cholesterol LDL Cholesterol Direct HDL Cholesterol Urine WBC (Auto) Urine Creatinine Urine Total Protein Crossmatch 08/13/18 08/13/18 08/13/18 20:07 21:16 23:17 WBC RBC Hgb Hct MCHC RDW [place] # Seg Neutrophils % Lymphocytes % (Manual) Seg Neutrophils # Lymphocytes # (Manual) PT INR APTT D-Dimer 2742.50 H Heparin Anti-Xa Level POC ABG pH 7.483 H POC ABG pCO2 30.8 L POC ABG pO2 150 H Sodium Potassium Chloride Carbon Dioxide BUN Creatinine Glucose POC Glucose 245 H Lactic Acid Calcium Magnesium AST Alkaline Phosphatase Total Creatine Kinase CK-MB (CK-2) Troponin T C-Reactive Protein Total Protein Albumin Cholesterol LDL Cholesterol Direct HDL Cholesterol Urine WBC (Auto) Urine Creatinine Urine Total Protein Crossmatch 08/14/18 08/14/18 08/14/18 04:03 04:03 04:56 WBC 18.2 H RBC 2.62 L Hgb 7.3 L Hct 24.5 L MCHC RDW 18.9 H [place] # 1.2 H Seg Neutrophils % 79.4 H Lymphocytes % (Manual) Seg Neutrophils # 14.5 H Lymphocytes # (Manual) PT INR APTT D-Dimer Heparin Anti-Xa Level POC ABG pH POC ABG pCO2 33.5 L POC ABG pO2 153 H Sodium 152 H Potassium 3.4 L Chloride 113.8 H Carbon Dioxide BUN 72 H Creatinine 2.7 H Glucose 239 H POC Glucose Lactic Acid Calcium 7.6 L Magnesium AST 50 H Alkaline Phosphatase 219 H Total Creatine Kinase CK-MB (CK-2) Troponin T 0.409 H* C-Reactive Protein Total Protein 6.2 L Albumin 1.9 L Cholesterol LDL Cholesterol Direct HDL Cholesterol Urine WBC (Auto) Urine Creatinine Urine Total Protein Crossmatch 08/14/18 08/14/18 08/14/18 05:18 13:38 15:35 WBC RBC Hgb Hct MCHC RDW [place] # Seg Neutrophils % Lymphocytes % (Manual) Seg Neutrophils # Lymphocytes # (Manual) PT INR APTT D-Dimer Heparin Anti-Xa Level POC ABG pH POC ABG pCO2 POC ABG pO2 Sodium 150 H Potassium 3.2 L Chloride 114.5 H Carbon Dioxide BUN 69 H Creatinine 2.3 H Glucose 247 H POC Glucose 242 H 296 H Lactic Acid Calcium 7.2 L Magnesium AST Alkaline Phosphatase Total Creatine Kinase CK-MB (CK-2) Troponin T C-Reactive Protein Total Protein Albumin Cholesterol LDL Cholesterol Direct HDL Cholesterol Urine WBC (Auto) Urine Creatinine Urine Total Protein Crossmatch 08/14/18 08/14/18 08/14/18 17:01 17:20 23:47 WBC RBC Hgb Hct MCHC RDW [place] # Seg Neutrophils % Lymphocytes % (Manual) Seg Neutrophils # Lymphocytes # (Manual) PT INR APTT D-Dimer Heparin Anti-Xa Level POC ABG pH POC ABG pCO2 POC ABG pO2 Sodium Potassium Chloride Carbon Dioxide BUN Creatinine Glucose POC Glucose 261 H 280 H Lactic Acid Calcium Magnesium AST Alkaline Phosphatase Total Creatine Kinase CK-MB (CK-2) Troponin T C-Reactive Protein Total Protein Albumin Cholesterol LDL Cholesterol Direct HDL Cholesterol Urine WBC (Auto) Urine Creatinine 60.9 H Urine Total Protein 64 H Crossmatch 08/15/18 08/15/18 08/15/18 04:05 04:05 04:05 WBC RBC Hgb 6.3 L Hct 19.7 L* MCHC RDW [place] # Seg Neutrophils % Lymphocytes % (Manual) Seg Neutrophils # Lymphocytes # (Manual) PT INR APTT D-Dimer Heparin Anti-Xa Level 0.17 L POC ABG pH POC ABG pCO2 POC ABG pO2 Sodium 146 H Potassium 3.0 L Chloride 110.6 H Carbon Dioxide BUN 64 H Creatinine 2.2 H Glucose 231 H POC Glucose Lactic Acid Calcium 7.1 L Magnesium AST Alkaline Phosphatase Total Creatine Kinase CK-MB (CK-2) Troponin T C-Reactive Protein Total Protein Albumin Cholesterol LDL Cholesterol Direct HDL Cholesterol Urine WBC (Auto) Urine Creatinine Urine Total Protein Crossmatch 08/15/18 08/15/18 08/15/18 05:21 05:26 06:35 WBC RBC Hgb Hct MCHC RDW [place] # Seg Neutrophils % Lymphocytes % (Manual) Seg Neutrophils # Lymphocytes # (Manual) PT INR APTT 79.0 H* D-Dimer Heparin Anti-Xa Level POC ABG pH 7.494 H POC ABG pCO2 POC ABG pO2 155 H Sodium Potassium Chloride Carbon Dioxide BUN Creatinine Glucose POC Glucose 271 H Lactic Acid Calcium Magnesium AST Alkaline Phosphatase Total Creatine Kinase CK-MB (CK-2) Troponin T C-Reactive Protein Total Protein Albumin Cholesterol LDL Cholesterol Direct HDL Cholesterol Urine WBC (Auto) Urine Creatinine Urine Total Protein Crossmatch 08/15/18 08/15/18 08/15/18 12:10 15:31 17:27 WBC RBC Hgb Hct MCHC RDW [place] # Seg Neutrophils % Lymphocytes % (Manual) Seg Neutrophils # Lymphocytes # (Manual) PT INR APTT D-Dimer Heparin Anti-Xa Level POC ABG pH POC ABG pCO2 POC ABG pO2 Sodium Potassium Chloride Carbon Dioxide BUN Creatinine Glucose POC Glucose 301 H 287 H Lactic Acid Calcium Magnesium AST Alkaline Phosphatase Total Creatine Kinase CK-MB (CK-2) Troponin T C-Reactive Protein Total Protein Albumin Cholesterol LDL Cholesterol Direct HDL Cholesterol Urine WBC (Auto) Urine Creatinine Urine Total Protein Crossmatch See Detail 08/15/18 08/15/18 08/16/18 21:41 23:45 04:13 WBC RBC Hgb Hct MCHC RDW [place] # Seg Neutrophils % Lymphocytes % (Manual) Seg Neutrophils # Lymphocytes # (Manual) PT INR APTT D-Dimer Heparin Anti-Xa Level 0.19 L POC ABG pH POC ABG pCO2 32.1 L POC ABG pO2 107 H Sodium Potassium Chloride Carbon Dioxide BUN Creatinine Glucose POC Glucose 163 H Lactic Acid Calcium Magnesium AST Alkaline Phosphatase Total Creatine Kinase CK-MB (CK-2) Troponin T C-Reactive Protein Total Protein Albumin Cholesterol LDL Cholesterol Direct HDL Cholesterol Urine WBC (Auto) Urine Creatinine Urine Total Protein Crossmatch 08/16/18 08/16/18 08/16/18 04:50 05:28 11:30 WBC RBC 2.67 L Hgb 8.1 L Hct 23.4 L MCHC 35 H RDW 18.3 H [place] # Seg Neutrophils % Lymphocytes % (Manual) Seg Neutrophils # Lymphocytes # (Manual) PT INR APTT D-Dimer Heparin Anti-Xa Level 0.19 L POC ABG pH POC ABG pCO2 POC ABG pO2 Sodium Potassium Chloride Carbon Dioxide BUN Creatinine Glucose POC Glucose 141 H Lactic Acid Calcium Magnesium AST Alkaline Phosphatase Total Creatine Kinase CK-MB (CK-2) Troponin T C-Reactive Protein Total Protein Albumin Cholesterol LDL Cholesterol Direct HDL Cholesterol Urine WBC (Auto) Urine Creatinine Urine Total Protein Crossmatch 08/16/18 08/16/18 08/16/18 11:30 12:00 12:01 WBC RBC Hgb Hct MCHC RDW [place] # Seg Neutrophils % Lymphocytes % (Manual) Seg Neutrophils # Lymphocytes # (Manual) PT INR APTT D-Dimer Heparin Anti-Xa Level 0.15 L POC ABG pH POC ABG pCO2 POC ABG pO2 Sodium Potassium Chloride 107.8 H Carbon Dioxide 21 L BUN 47 H Creatinine 1.6 H Glucose 221 H POC Glucose 267 H Lactic Acid Calcium 6.9 L Magnesium AST Alkaline Phosphatase Total Creatine Kinase CK-MB (CK-2) Troponin T C-Reactive Protein Total Protein Albumin Cholesterol LDL Cholesterol Direct HDL Cholesterol Urine WBC (Auto) Urine Creatinine Urine Total Protein Crossmatch 08/16/18 08/16/18 08/16/18 17:23 20:01 23:13 WBC RBC Hgb Hct MCHC RDW [place] # Seg Neutrophils % Lymphocytes % (Manual) Seg Neutrophils # Lymphocytes # (Manual) PT INR APTT D-Dimer Heparin Anti-Xa Level 0.26 L POC ABG pH POC ABG pCO2 POC ABG pO2 Sodium Potassium Chloride Carbon Dioxide BUN Creatinine Glucose POC Glucose 245 H 256 H Lactic Acid Calcium Magnesium AST Alkaline Phosphatase Total Creatine Kinase CK-MB (CK-2) Troponin T C-Reactive Protein Total Protein Albumin Cholesterol LDL Cholesterol Direct HDL Cholesterol Urine WBC (Auto) Urine Creatinine Urine Total Protein Crossmatch 08/17/18 08/17/18 08/17/18 04:29 04:55 05:34 WBC RBC Hgb 8.2 L Hct 24.3 L MCHC RDW [place] # Seg Neutrophils % Lymphocytes % (Manual) Seg Neutrophils # Lymphocytes # (Manual) PT INR APTT D-Dimer Heparin Anti-Xa Level POC ABG pH POC ABG pCO2 32.4 L POC ABG pO2 108 H Sodium Potassium Chloride Carbon Dioxide BUN Creatinine Glucose POC Glucose 268 H Lactic Acid Calcium Magnesium AST Alkaline Phosphatase Total Creatine Kinase CK-MB (CK-2) Troponin T C-Reactive Protein Total Protein Albumin Cholesterol LDL Cholesterol Direct HDL Cholesterol Urine WBC (Auto) Urine Creatinine Urine Total Protein Crossmatch 08/17/18 08/17/18 08/17/18 11:54 13:44 17:24 WBC RBC Hgb Hct MCHC RDW [place] # Seg Neutrophils % Lymphocytes % (Manual) Seg Neutrophils # Lymphocytes # (Manual) PT INR APTT D-Dimer Heparin Anti-Xa Level POC ABG pH POC ABG pCO2 32.7 L POC ABG pO2 142 H Sodium Potassium Chloride Carbon Dioxide BUN Creatinine Glucose POC Glucose 295 H 283 H Lactic Acid Calcium Magnesium AST Alkaline Phosphatase Total Creatine Kinase CK-MB (CK-2) Troponin T C-Reactive Protein Total Protein Albumin Cholesterol LDL Cholesterol Direct HDL Cholesterol Urine WBC (Auto) Urine Creatinine Urine Total Protein Crossmatch 08/18/18 08/18/18 08/18/18 00:05 00:59 04:15 WBC RBC Hgb Hct MCHC RDW [place] # Seg Neutrophils % Lymphocytes % (Manual) Seg Neutrophils # Lymphocytes # (Manual) PT INR APTT D-Dimer Heparin Anti-Xa Level POC ABG pH POC ABG pCO2 POC ABG pO2 115 H Sodium Potassium Chloride Carbon Dioxide BUN Creatinine Glucose POC Glucose 247 H 251 H Lactic Acid Calcium Magnesium AST Alkaline Phosphatase Total Creatine Kinase CK-MB (CK-2) Troponin T C-Reactive Protein Total Protein Albumin Cholesterol LDL Cholesterol Direct HDL Cholesterol Urine WBC (Auto) Urine Creatinine Urine Total Protein Crossmatch 08/18/18 05:02 WBC RBC Hgb Hct MCHC RDW [place] # Seg Neutrophils % Lymphocytes % (Manual) Seg Neutrophils # Lymphocytes # (Manual) PT INR APTT D-Dimer Heparin Anti-Xa Level POC ABG pH POC ABG pCO2 POC ABG pO2 Sodium Potassium Chloride Carbon Dioxide BUN Creatinine Glucose POC Glucose 282 H Lactic Acid Calcium Magnesium AST Alkaline Phosphatase Total Creatine Kinase CK-MB (CK-2) Troponin T C-Reactive Protein Total Protein Albumin Cholesterol LDL Cholesterol Direct HDL Cholesterol Urine WBC (Auto) Urine Creatinine Urine Total Protein Crossmatch Chest x-ray: image reviewed (no focal infiltrate; ETT remains in good position) Allied health notes reviewed: nursing
[2018-08-18] MEDS ORDERED: LANTUS SUB-Q ONE (12:00)
--- NOTE | 2018-08-18 12:43 | Progress Note ---
Assessment and Plan Pt presented s/p multiple cardiac arrests with prologned down time - per neurology, pt will likely not recover. Pt's initial ECG was suggestive of ischemia/infarction, repeat ECG shows resolution of ST changes, Ian elevated. S/p >48Hr heparin infusion. Cont ASA and statin, consider addition of BB if BPs permit.Will continue with conservative cardiac management at this time given overall poor prognosis. The patient has been seen in conjunction with Dr. Pena who agrees with the assessment and plan of care. - Patient Problems (1) Cardiac arrest Current Visit: Yes Status: Acute (2) ACS (acute coronary syndrome) Current Visit: Yes Status: Acute (3) Seizure disorder Current Visit: Yes Status: Acute (4) Altered mental state Current Visit: Yes Status: Acute (5) Acute and chronic respiratory failure Current Visit: Yes Status: Acute Qualifiers: Respiratory failure complication: hypoxia Qualified Code(s): J96.21 - Acute and chronic respiratory failure with hypoxia (6) Hypotension Current Visit: Yes Status: Acute (7) Pneumothorax Current Visit: Yes Status: Acute (8) History of CVA (cerebrovascular accident) Current Visit: Yes Status: Chronic (9) Sinus tachycardia Current Visit: Yes Status: Acute (10) Leukocytosis Current Visit: Yes Status: Acute (11) Fever Current Visit: Yes Status: Acute (12) Anemia Current Visit: Yes Status: Acute (13) MAYLIN (acute kidney injury) Current Visit: Yes Status: Acute (14) Hypernatremia Current Visit: Yes Status: Acute (15) History of tracheostomy Current Visit: Yes Status: Chronic Subjective Date of service: 08/18/18 Principal diagnosis: Acute hypoxemic resp failure; S/P cardiac arrest; Seizures; DM II; H/O CVA Interval history: pt remains intubated, sedated, nonresponsive, no family at bedside. Objective Last Vital Signs Temp 98.0 F 08/18/18 12:00 Pulse 58 L 08/18/18 12:09 Resp 17 08/18/18 12:09 BP 123/50 08/18/18 12:09 Pulse Ox 100 08/18/18 12:09 - Physical Examination General: Other (intubated, sedated, nonresponsive) Neck: Positive: trachea midline Cardiac: Positive: Reg Rate and Rhythm, S1/S2 Neuro: Positive: Other (intubated, sedated, nonresponsive) Abdomen: Positive: Unremarkable Extremities: Absent: edema - Imaging and Cardiology EKG: report reviewed, image reviewed Echo: report reviewed (07/2018: TDS, EF 55-60%. GLORIA done 05/12/2018 showed EF 60- 65%, no thromcus, negative bubble study, mild TR, mild MR. TTE done 05/08/2018 showed EF 60%, mild LVH, grade 1 diastolic dysfunction, negative bubble study. ) - EKG Sinus rhythms and dysrhythmias: sinus tachycardia Repolarization changes or abnormalities: ST or T wave suggestive of ischemia - Allied health notes Allied health notes reviewed: nursing
--- NOTE | 2018-08-18 14:06 | Consultation ---
Past History Past Medical History: diabetes, hypertension, hyperlipidemia, seizures, stroke Past Surgical History: Other (trach and PEG) Social history: other (at shelter). denies: smoking, alcohol abuse, prescription drug abuse, IV drug use Family history: hypertension Medications and Allergies Allergies Allergy/AdvReac Type Severity Reaction Status Date / Time No Known Allergies Allergy Verified 08/12/18 21:47 Active Meds: Active Medications Acetaminophen (Tylenol) 650 mg PO Q6H PRN PRN Reason: Fever >101 Last Admin: 08/13/18 16:09 Dose: 650 mg Documented by: Lipase/Protease/Amylase (Pancreaze Dr 10,500 Unit) 1 each FEEDTUBE PRN PRN PRN Reason: For Clogged Feeding Tube Aspirin (Aspirin) 325 mg PO QDAY [facility] Last Admin: 08/18/18 09:37 Dose: 325 mg Documented by: Atorvastatin Calcium (Lipitor) 40 mg PO QHS [facility] Last Admin: 08/17/18 21:59 Dose: 40 mg Documented by: Dextrose (D50w (25gm) Syringe) 50 ml IV PRN PRN PRN Reason: Hypoglycemia Enoxaparin Sodium (Lovenox) 40 mg SUB-Q QDAY@2200 [facility] Last Admin: 08/17/18 21:58 Dose: 40 mg Documented by: Famotidine (Pepcid) 20 mg PO DAILY [facility] Last Admin: 08/18/18 09:37 Dose: 20 mg Documented by: Hydrophilic Ointment (Vaseline Lip Therapy) 1 applic TP Q2HR PRN PRN Reason: Dry Lips Propofol (Diprivan 10 Mg/Ml) 1,000 mg in 100 mls @ 2.177 mls/hr IV TITR [facility]; Protocol Last Titration: 08/15/18 06:00 Dose: 0 mcg/kg/min, 0 mls/hr Documented by: Fentanyl Citrate (Fentanyl Drip Premix) 2,000 mcg in 100 mls @ 3.629 mls/hr IV TITR [facility]; Protocol Insulin Glargine (Lantus) 30 units SUB-Q DAILY [facility] Insulin Human Lispro (Humalog) 0 unit SUB-Q Q6HR [facility]; Protocol Last Admin: 08/18/18 12:34 Dose: 3 unit Documented by: Levetiracetam (Keppra) 1,000 mg PO BID [facility] Last Admin: 08/18/18 09:37 Dose: 1,000 mg Documented by: Multi-Ingred Cream/Lotion/Oil/Oint (Artificial Tears Ophth Oint) 1 applic OU Q4HR PRN PRN Reason: Dry Eye(s) Last Admin: 08/17/18 00:41 Dose: 1 applic Documented by: Ondansetron HCl (Zofran) 4 mg IV Q8H PRN PRN Reason: Nausea And Vomiting Simple Syrup (Simple Syrup) 15 ml FEEDTUBE PRN PRN PRN Reason: Hypoglycemia Simple Syrup (Simple Syrup) 30 ml FEEDTUBE PRN PRN PRN Reason: Hypoglycemia Sodium Bicarbonate (Sodium Bicarbonate) 325 mg FEEDTUBE PRN PRN PRN Reason: For Clogged Feeding Tube Sodium Chloride (Sodium Chloride Flush Syringe 10 Ml) 10 ml IV BID [facility] Last Admin: 08/18/18 09:39 Dose: 10 ml Documented by: Sodium Chloride (Sodium Chloride Flush Syringe 10 Ml) 10 ml IV PRN PRN PRN Reason: LINE FLUSH Exam Vital Signs Pulse Ox 100 08/12/18 21:02 Results - Labs 08/17/18 04:55 08/16/18 11:30 Abnormal lab results 08/17/18 08/18/18 08/18/18 Range/Units 17:24 00:05 00:59 POC ABG pO2 (80-105) POC Glucose 283 H 247 H 251 H (70-105) 08/18/18 08/18/18 08/18/18 Range/Units 04:15 05:02 12:20 POC ABG pO2 115 H (80-105) POC Glucose 282 H 209 H (70-105)
--- NOTE | 2018-08-18 14:22 | Progress Note ---
Assessment and Plan Assessment and plan: Patient is a 77 yo man from [facility] with a history of respiratory failure, CVA with tracheostomy and Gtube who presented to [facility] ED following cardiac arrest [facility]. Time down is unknown per records. The patient is on the vent and unresponsive, all history is obtained from the chart. Patient had multiple episodes of arrest/pulselessness. He has been on the vent since then without any improvement. Per ER notes the patient was bagged via tracheostomy which continued to have low tidal volumes and so the patient with orally intubated after which tidal volumes improved. Cardiopulmonary arrest x 3, I do not know the cause of the Cardiac arrest but it appears that he has suffered irreversible brain damage prior to hospitalization: supportive care, CCM and Neurology following. Acute on chronic respiratory failure on mechanical ventilation less than 96 hours: Trach has been removed patient is orally intubated, continue ventilator management per pulmonology Right pneumothorax: Status post chest tube, mgt per pulmonology Anoxic brain injury and status epilepticus, Patient was noted to be having seizures, he received Ativan and Keppra, neurology consult appreciated, poor prognosis, poor likelihood of recovery, suspect brain , fup brain flow scan Hypernatremia/free water deficits, Continue free water via G-tube, sp hypotonic IV solution Acute kidney injury likely due to ATN: Nephrology consult, continue IV fluid, avoid renal toxic agents Acute Likely a type II [place], Elevated troponin unit after patient has had cardiac arrest 3, expected outcome, cardiology consult appreciated, continue heparin drip, aspirin and statin, Patient would have to clinically improved undergo any coronary risk Shock, likely central in origin cont pressors as needed Severe malnutrition Dietitian consult, continue tube feedings UTI/sepsis Continue antibiotics, follow-up urine cultures Type 2 dm with persistent hyperglycemia cont insulins Anemia sp transfusion Urinary retention continue douglass, do not remove DVT prophylaxis; patient is fully anticoagulated on heparin drip Awaiting NM brain flow scan==>reduced blood flow CCT 34 minutes History Interval history: Patient was seen and examined. Follow-up on current diagnosis of respiratory failure. No overnight events reported to me. Patient intubated, not sedated. Imaging, nursing note, chart, labs and old chart reviewed. Hospitalist Physical - Physical exam Narrative exam: Gen: ill appearing, intubated not sedated, comatose HEENT: NCAT, pupil pinpoint and nonreactive Neck: supple, no adenopathy, no thyromegaly, no JVD CVS/Heart: Regular bradycardia, normal S1S2, pulses present bilaterally Chest/Lungs: diminished bs bilateral, Symmetrical chest expansion, good air entry bilaterally GI/Abdomen: soft, PEG in place, +bowel sounds, Extermity/Skin: no obvious rash MSK: unresponsive Neuro: unresponsive Psych: unresponsive - Constitutional Vitals: Temp Pulse Resp BP Pulse Ox 98.0 F 58 L 17 123/50 100 08/18/18 12:00 08/18/18 12:09 08/18/18 12:09 08/18/18 12:09 08/18/18 12:09 General appearance: Present: other (twitching, nonresponsive, intubated) Results - Labs CBC & Chem 7: 08/17/18 04:55 08/16/18 11:30 Labs: Laboratory Last Values WBC 8.5 K/mm3 (4.5-11.0) 08/16/18 11:30 RBC 2.67 M/mm3 (3.65-5.03) L 08/16/18 11:30 Hgb 8.2 gm/dl (11.8-15.2) L 08/17/18 04:55 Hct 24.3 % (35.5-45.6) L 08/17/18 04:55 MCV 88 fl (84-94) 08/16/18 11:30 MCH 30 pg (28-32) 08/16/18 11:30 MCHC 35 % (32-34) H 08/16/18 11:30 RDW 18.3 % (13.2-15.2) H 08/16/18 11:30 Plt Count 233 K/mm3 (140-440) 08/17/18 04:55 Lymph % (Auto) 13.6 % (13.4-35.0) 08/14/18 04:03 [place] % (Auto) 6.4 % (0.0-7.3) 08/14/18 04:03 Eos % (Auto) 0.1 % (0.0-4.3) 08/14/18 04:03 Baso % (Auto) 0.5 % (0.0-1.8) 08/14/18 04:03 Lymph # 2.5 K/mm3 (1.2-5.4) 08/14/18 04:03 [place] # 1.2 K/mm3 (0.0-0.8) H 08/14/18 04:03 Eos # 0.0 K/mm3 (0.0-0.4) 08/14/18 04:03 Baso # 0.1 K/mm3 (0.0-0.1) 08/14/18 04:03 Add Manual Diff Complete 08/12/18 21:44 Total Counted 100 08/12/18 21:44 Seg Neutrophils % 79.4 % (40.0-70.0) H 08/14/18 04:03 Seg Neuts % (Manual) 44.0 % (40.0-70.0) 08/12/18 21:44 0 % 08/12/18 21:44 48.0 % (13.4-35.0) H 08/12/18 21:44 Reactive Lymphs % (Man) 0 % 08/12/18 21:44 2.0 % (0.0-7.3) 08/12/18 21:44 1.0 % (0.0-4.3) 08/12/18 21:44 0 % (0.0-1.8) 08/12/18 21:44 1.0 % 08/12/18 21:44 4.0 % 08/12/18 21:44 0 % 08/12/18 21:44 0 % 08/12/18 21:44 Nucleated RBC % Not Reportable 08/12/18 21:44 Seg Neutrophils # 14.5 K/mm3 (1.8-7.7) H 08/14/18 04:03 Seg Neutrophils # Man 6.8 K/mm3 (1.8-7.7) 08/12/18 21:44 Band Neutrophils # 0.0 K/mm3 08/12/18 21:44 7.4 K/mm3 (1.2-5.4) H 08/12/18 21:44 Abs React Lymphs (Man) 0.0 K/mm3 08/12/18 21:44 0.3 K/mm3 (0.0-0.8) 08/12/18 21:44 0.2 K/mm3 (0.0-0.4) 08/12/18 21:44 0.0 K/mm3 (0.0-0.1) 08/12/18 21:44 0.2 K/mm3 08/12/18 21:44 0.6 K/mm3 08/12/18 21:44 0.0 K/mm3 08/12/18 21:44 Blast Cells # 0.0 K/mm3 08/12/18 21:44 WBC Morphology Not Reportable 08/12/18 21:44 Hypersegmented Neuts Not Reportable 08/12/18 21:44 Hyposegmented Neuts Not Reportable 08/12/18 21:44 Hypogranular Neuts Not Reportable 08/12/18 21:44 Not Reportable 08/12/18 21:44 Not Reportable 08/12/18 21:44 Not Reportable 08/12/18 21:44 Not Reportable 08/12/18 21:44 Not Reportable 08/12/18 21:44 Not Reportable 08/12/18 21:44 Consistent w auto 08/12/18 21:44 Not Reportable 08/12/18 21:44 Plt Clumps, EDTA Not Reportable 08/12/18 21:44 Not Reportable 08/12/18 21:44 Not Reportable 08/12/18 21:44 Not Reportable 08/12/18 21:44 Plt Morphology Comment Not Reportable 08/12/18 21:44 RBC Morphology Not Reportable 08/12/18 21:44 Dimorphic RBCs Not Reportable 08/12/18 21:44 Not Reportable 08/12/18 21:44 Not Reportable 08/12/18 21:44 Not Reportable 08/12/18 21:44 Few 08/12/18 21:44 Not Reportable 08/12/18 21:44 Not Reportable 08/12/18 21:44 Not Reportable 08/12/18 21:44 Not Reportable 08/12/18 21:44 Not Reportable 08/12/18 21:44 Not Reportable 08/12/18 21:44 Not Reportable 08/12/18 21:44 Few 08/12/18 21:44 Not Reportable 08/12/18 21:44 Not Reportable 08/12/18 21:44 Not Reportable 08/12/18 21:44 Not Reportable 08/12/18 21:44 Not Reportable 08/12/18 21:44 Not Reportable 08/12/18 21:44 Few 08/12/18 21:44 Acanthocytes (Spur) Not Reportable 08/12/18 21:44 Rouleaux Not Reportable 08/12/18 21:44 Not Reportable 08/12/18 21:44 Not Reportable 08/12/18 21:44 Not Reportable 08/12/18 21:44 Not Reportable 08/12/18 21:44 Hem Pathologist Commnt No 08/12/18 21:44 PT 16.5 Sec. (12.2-14.9) H 08/13/18 00:47 INR 1.25 (0.87-1.13) H 08/13/18 00:47 APTT 79.0 Sec. (24.2-36.6) H* 08/15/18 06:35 2742.50 ng/mlDDU (0-234) H 08/13/18 20:07 Heparin Anti-Xa Level 0.26 U.I./ml (0.3-0.7) L 08/16/18 20:01 POC ABG pH 7.409 (7.35-7.45) 08/18/18 04:15 POC ABG pCO2 35.2 (35-45) 08/18/18 04:15 POC ABG pO2 115 (80-105) H 08/18/18 04:15 POC ABG HCO3 22.3 (22-26 mml/L) 08/18/18 04:15 POC ABG Total CO2 23 (23-27mmol/L) 08/18/18 04:15 POC ABG O2 Sat 99 08/18/18 04:15 POC ABG Base Excess -2 ((-2) - (+3)mmol/L) 08/18/18 04:15 28 % 08/18/18 04:15 Sodium 141 mmol/L (137-145) 08/16/18 11:30 Potassium 3.6 mmol/L (3.6-5.0) 08/16/18 11:30 Chloride 107.8 mmol/L (98-107) H 08/16/18 11:30 Carbon Dioxide 21 mmol/L (22-30) L 08/16/18 11:30 16 mmol/L 08/16/18 11:30 BUN 47 mg/dL (9-20) H 08/16/18 11:30 1.6 mg/dL (0.8-1.5) H 08/16/18 11:30 Estimated GFR 51 ml/min 08/16/18 11:30 29 % 08/16/18 11:30 Glucose 221 mg/dL (75-100) H 08/16/18 11:30 POC Glucose 209 (70-105) H 08/18/18 12:20 Lactic Acid 2.80 mmol/L (0.7-2.0) H* 08/13/18 12:53 Calcium 6.9 mg/dL (8.4-10.2) L 08/16/18 11:30 Phosphorus 3.90 mg/dL (2.5-4.5) 08/15/18 04:05 Magnesium 2.20 mg/dL (1.7-2.3) 08/15/18 04:05 0.30 mg/dL (0.1-1.2) 08/14/18 04:03 AST 50 units/L (5-40) H 08/14/18 04:03 ALT 55 units/L (7-56) 08/14/18 04:03 219 units/L (35-129) H 08/14/18 04:03 309 units/L (55-170) H 08/13/18 10:10 CK-MB (CK-2) 4.1 ng/mL (0.0-4.0) H 08/13/18 10:10 CK-MB (CK-2) Rel Index 1.3 (0-4) 08/13/18 10:10 0.409 ng/mL (0.00-0.029) H* 08/14/18 04:03 16.90 mg/dL (0.00-1.30) H 08/13/18 12:53 6.2 g/dL (6.3-8.2) L 08/14/18 04:03 1.9 g/dL (3.9-5) L 08/14/18 04:03 0.4 % 08/14/18 04:03 Triglycerides 62 mg/dL (2-149) 08/13/18 00:32 Cholesterol 46 mg/dL (50-199) L 08/13/18 00:32 17 mg/dL (50-130) L 08/13/18 00:32 6 mg/dL (40-59) L 08/13/18 00:32 7.66 % 08/13/18 00:32 Yellow (Yellow) 08/13/18 00:50 Cloudy (Clear) 08/13/18 00:50 7.0 (5.0-7.0) 08/13/18 00:50 Ur Specific [place] 1.025 (1.003-1.030) 08/13/18 00:50 100 mg/dl mg/dL (Negative) 08/13/18 00:50 50 mg/dL (Negative) 08/13/18 00:50 Tr mg/dL (Negative) 08/13/18 00:50 Mod (Negative) 08/13/18 00:50 Neg (Negative) 08/13/18 00:50 Neg (Negative) 08/13/18 00:50 < 2.0 mg/dL (<2.0) 08/13/18 00:50 Ur Leukocyte Esterase Mod (Negative) 08/13/18 00:50 > 182.0 /HPF (0.0-6.0) H 08/13/18 00:50 > 182.0 /HPF (0.0-6.0) 08/13/18 00:50 2+ /HPF (Negative) 08/13/18 00:50 3+ /HPF 08/13/18 00:50 None seen (None Seen) 08/14/18 17:20 60.9 mg/dL (0.1-20.0) H 08/14/18 17:20 32 mmol/L 08/14/18 17:20 64 mg/dL (5-11.8) H 08/14/18 17:20 Presumptive negative 08/12/18 21:30 Presumptive negative 08/12/18 21:30 Ur Barbiturates Screen Presumptive negative 08/12/18 21:30 Ur Phencyclidine Scrn Presumptive negative 08/12/18 21:30 Ur Amphetamines Screen Presumptive negative 08/12/18 21:30 U Benzodiazepines Scrn Presumptive negative 08/12/18 21:30 Presumptive negative 08/12/18 21:30 U Marijuana (THC) Screen Presumptive negative 08/12/18 21:30 Disclamer 08/12/18 21:30 Blood Type O POSITIVE 08/15/18 15:31 Antibody Screen Negative 08/15/18 15:31 Crossmatch See Detail 08/15/18 15:31 Active Medications - Current Medications Current Medications: Generic Name Dose Route Start Last Admin Trade Name Freq PRN Reason Stop Dose Admin Acetaminophen 650 mg 08/13/18 11:40 08/13/18 16:09 Tylenol PO 650 mg Q6H PRN Administration Fever >101 Lipase/Protease/Amylase 1 each 08/13/18 15:[address] 10,500 Unit FEEDTUBE PRN PRN For Clogged Feeding Tube Aspirin 325 mg 08/17/18 10:00 08/18/18 09:37 Aspirin PO 325 mg QDAY [facility] Administration Atorvastatin Calcium 40 mg 08/14/18 22:00 08/17/18 21:59 Lipitor PO 40 mg QHS [facility] Administration Dextrose 50 ml 08/13/18 01:34 D50w (25gm) Syringe IV PRN PRN Hypoglycemia Enoxaparin Sodium 40 mg 08/17/18 22:00 08/17/18 21:58 Lovenox SUB-Q 40 mg QDAY@2200 [facility] Administration Famotidine 20 mg 08/17/18 10:00 08/18/18 09:37 Pepcid PO 20 mg DAILY [facility] Administration Hydrophilic Ointment 1 applic 08/13/18 12:21 Vaseline Lip Therapy TP Q2HR PRN Dry Lips Propofol 1,000 mg in 100 mls @ 2.177 mls/hr 08/13/18 13:00 08/15/18 06:00 Diprivan 10 Mg/Ml IV 0 mcg/kg/min TITR [facility] 0 mls/hr Titration Protocol 5 MCG/KG/MIN Fentanyl Citrate 2,000 mcg in 100 mls @ 3.629 mls/hr 08/14/18 13:00 Fentanyl Drip Premix IV TITR [facility] Protocol 1 MCG/KG/HR Insulin Glargine 30 units 08/19/18 10:00 Lantus SUB-Q DAILY [facility] Insulin Human Lispro 0 unit 08/13/18 06:00 08/18/18 12:34 Humalog SUB-Q 3 unit Q6HR [facility] Administration Protocol Levetiracetam 1,000 mg 08/13/18 15:00 08/18/18 09:37 Keppra PO 1,000 mg BID [facility] Administration Multi-Ingred Cream/Lotion/Oil/Oint 1 applic 08/13/18 12:21 08/17/18 00:41 Artificial Tears Ophth Oint OU 1 applic Q4HR PRN Administration Dry Eye(s) Ondansetron HCl 4 mg 08/13/18 01:34 Zofran IV Q8H PRN Nausea And Vomiting Simple Syrup 15 ml 08/13/18 15:55 Simple Syrup FEEDTUBE PRN PRN Hypoglycemia Simple Syrup 30 ml 08/13/18 15:55 Simple Syrup FEEDTUBE PRN PRN Hypoglycemia Sodium Bicarbonate 325 mg 08/13/18 15:55 Sodium Bicarbonate FEEDTUBE PRN PRN For Clogged Feeding Tube Sodium Chloride 10 ml 08/13/18 10:00 08/18/18 09:39 Sodium Chloride Flush Syringe 10 Ml IV 10 ml BID [facility] Administration Sodium Chloride 10 ml 08/13/18 01:34 Sodium Chloride Flush Syringe 10 Ml IV PRN PRN LINE FLUSH Nutrition/Malnutrition Assess - Dietary Evaluation Nutrition/Malnutrition Findings: Nutrition Notes Start: 08/13/18 15:41 Freq: Status: Active Protocol: Document 08/17/18 15:02 RM (Rec: 08/17/18 15:08 [id number]) Nutrition Notes Initial or Follow up Reassessment Current Diagnosis Acute Kidney Injury,Diabetes Other Pertinent Diagnosis UTI, Hx CVA, PEG, Sacral PU, Multiple PU, Anoxic brain injury,R pneumothorax Current Diet Vital 1.2 at 60 ml/hr Labs/Tests Na 141 Pertinent Medications Reviewed Height 5 ft 8 in Weight 72.575 kg [place] Body Weight (kg) 70.00 BMI 24.3 Subjective/Other Information Observed Vital 1.2 infusing at 60 ml/hr. Per nurse pt is tolerating TF. Percent of energy/protein needs met: 100%/100% Burn Absent Trauma Absent #1 Nutrition Diagnosis Inadequate oral intake Diagnosis Progress(for reassessment Continues documentation) Is patient on ventilator? Yes Is Patient Ambulatory and/or Out of Bed No REE-([facility]-confined to bed) [phone] Calculation Used for Recommendations [facility] Additional Notes Protein Needs: 87-145g (1.2-2g /kg) Fluid Needs: 1 ml/kcal Nutrition Intervention Nutrition Support: Vital 1.2 at 60 ml/hr. Water flush of 100 mls q 4 hrs . Kcal 1,728 Protein (gm) 108 Fiber (gm) 7 Goal #1 Continue to meet at least 80% of calorie and protein needs via TF Anticipated Discharge Needs: TF Follow-Up By: 08/25/18 Additional Comments Follow for TF tolerance
[2018-08-18] MEDS ORDERED: SIMPLE SYRUP FEEDTUBE PRN ×2 (15:18)
[2018-08-18] MEDS ORDERED: PANCREAZE DR 10,500 UNIT FEEDTUBE PRN (15:18)
[2018-08-18] MEDS ORDERED: SODIUM BICARBONATE FEEDTUBE PRN (15:18)
--- NOTE | 2018-08-18 16:50 | Progress Note ---
Assessment and Plan - Patient Problems (1) Acute and chronic respiratory failure Current Visit: Yes Status: Acute Qualifiers: Respiratory failure complication: hypoxia Qualified Code(s): J96.21 - Acute and chronic respiratory failure with hypoxia Plan to address problem: Pt stable. would like to move forward with replacement of trach. Procedure, risks, benefits discussed. Consent obtained for bedside perc trach, possible open trach. Will work on scheduling. Time=15min Subjective Date of service: 08/18/18 Patient Reports: Positive: other (no new issues) Objective Vital Signs - 12hr 08/18/18 08/18/18 08/18/18 04:51 05:00 05:11 Temperature Pulse Rate 60 61 61 Respiratory 17 18 16 Rate Blood Pressure 131/52 128/53 128/53 O2 Sat by Pulse 100 99 100 Oximetry 08/18/18 08/18/18 08/18/18 05:21 05:30 05:41 Temperature Pulse Rate 63 66 63 Respiratory 15 16 17 Rate Blood Pressure 128/53 133/54 133/54 O2 Sat by Pulse 100 100 100 Oximetry 08/18/18 08/18/18 08/18/18 05:51 06:00 06:11 Temperature Pulse Rate 59 L 59 L 61 Respiratory 17 17 15 Rate Blood Pressure 133/54 129/54 129/54 O2 Sat by Pulse 100 100 100 Oximetry 08/18/18 08/18/18 08/18/18 06:21 06:30 06:41 Temperature Pulse Rate 62 61 60 Respiratory 17 17 18 Rate Blood Pressure 129/54 132/50 132/50 O2 Sat by Pulse 100 100 100 Oximetry 08/18/18 08/18/18 08/18/18 06:51 07:00 07:11 Temperature Pulse Rate 62 61 62 Respiratory 14 17 15 Rate Blood Pressure 132/50 129/56 129/56 O2 Sat by Pulse 100 100 100 Oximetry 08/18/18 08/18/18 08/18/18 07:21 07:30 07:41 Temperature Pulse Rate 61 63 60 Respiratory 16 16 15 Rate Blood Pressure 132/50 124/55 124/55 O2 Sat by Pulse 100 100 100 Oximetry 08/18/18 08/18/18 08/18/18 07:51 08:00 08:11 Temperature 98.8 F Pulse Rate 60 61 61 Respiratory 14 13 14 Rate Blood Pressure 124/55 136/56 136/56 O2 Sat by Pulse 100 100 100 Oximetry 08/18/18 08/18/18 08/18/18 08:21 08:30 08:41 Temperature Pulse Rate 59 L 62 61 Respiratory 14 15 14 Rate Blood Pressure 136/56 137/58 137/58 O2 Sat by Pulse 100 100 100 Oximetry 08/18/18 08/18/18 08/18/18 08:51 09:00 09:11 Temperature Pulse Rate 62 61 60 Respiratory 15 16 16 Rate Blood Pressure 137/58 134/57 134/57 O2 Sat by Pulse 100 100 100 Oximetry 08/18/18 08/18/18 08/18/18 09:21 09:30 09:35 Temperature Pulse Rate 61 61 62 Respiratory 17 18 Rate Blood Pressure 137/58 136/56 136/56 O2 Sat by Pulse 100 100 100 Oximetry 08/18/18 08/18/18 08/18/18 09:40 09:41 09:51 Temperature Pulse Rate 59 L 59 L 60 Respiratory 18 14 18 Rate Blood Pressure 136/56 136/56 136/56 O2 Sat by Pulse 100 100 100 Oximetry 08/18/18 08/18/18 08/18/18 10:00 10:11 10:21 Temperature Pulse Rate 58 L 64 63 Respiratory 16 15 15 Rate Blood Pressure 132/56 132/56 132/56 O2 Sat by Pulse 100 100 100 Oximetry 08/18/18 08/18/18 08/18/18 10:30 10:41 10:51 Temperature Pulse Rate 75 67 58 L Respiratory 16 12 20 Rate Blood Pressure 125/69 125/69 125/69 O2 Sat by Pulse 97 99 99 Oximetry 08/18/18 08/18/18 08/18/18 11:00 11:11 11:21 Temperature Pulse Rate 57 L 65 60 Respiratory 16 16 20 Rate Blood Pressure 121/53 121/53 121/53 O2 Sat by Pulse 98 99 99 Oximetry 08/18/18 08/18/18 08/18/18 11:30 11:41 11:51 Temperature Pulse Rate 62 55 L 60 Respiratory 18 15 15 Rate Blood Pressure 129/56 129/56 129/56 O2 Sat by Pulse 98 100 100 Oximetry 08/18/18 08/18/18 08/18/18 12:00 12:09 12:11 Temperature 98.0 F Pulse Rate 60 58 L 54 L Respiratory 16 17 18 Rate Blood Pressure 123/50 123/50 123/50 O2 Sat by Pulse 100 100 100 Oximetry 08/18/18 08/18/18 08/18/18 12:21 12:30 12:40 Temperature Pulse Rate 56 L 58 L 53 L Respiratory 15 15 17 Rate Blood Pressure 123/50 129/56 123/50 O2 Sat by Pulse 100 100 100 Oximetry 08/18/18 08/18/18 08/18/18 12:51 13:00 13:11 Temperature Pulse Rate 56 L 57 L 57 L Respiratory 19 18 16 Rate Blood Pressure 129/56 128/53 128/53 O2 Sat by Pulse 100 100 100 Oximetry 08/18/18 08/18/18 08/18/18 13:21 13:30 13:40 Temperature Pulse Rate 56 L 58 L 55 L Respiratory 15 15 17 Rate Blood Pressure 128/53 134/53 134/53 O2 Sat by Pulse 100 100 100 Oximetry 08/18/18 08/18/18 08/18/18 13:51 14:00 14:11 Temperature Pulse Rate 55 L 56 L 55 L Respiratory 19 17 17 Rate Blood Pressure 134/53 130/52 130/52 O2 Sat by Pulse 100 100 100 Oximetry 08/18/18 08/18/18 08/18/18 14:21 14:30 14:41 Temperature Pulse Rate 56 L 53 L 56 L Respiratory 18 16 18 Rate Blood Pressure 130/52 128/52 128/52 O2 Sat by Pulse 100 100 100 Oximetry 08/18/18 08/18/18 08/18/18 14:51 15:00 15:11 Temperature Pulse Rate 53 L 55 L 53 L Respiratory 19 18 14 Rate Blood Pressure 128/52 122/53 122/53 O2 Sat by Pulse 100 100 100 Oximetry 08/18/18 08/18/18 08/18/18 15:21 15:31 16:00 Temperature 98.3 F Pulse Rate 54 L 55 L Respiratory 18 15 Rate Blood Pressure 122/53 133/52 O2 Sat by Pulse 100 100 Oximetry - General physical appearance no distress, no pain, other (unresponsive) - Neck other (small tracheotomy opening seen. No signs of infection. neck is supple) - Respiratory normal expansion, clear to auscultation - Abdomen soft, other (PEG in place) - Integumentary no rash, no growths, no abnormal pigmentation - Labs 08/17/18 04:55 08/16/18 11:30
[2018-08-18] MEDS: LOVENOX SUB-Q SCH (21:39)
--- NOTE | 2018-08-19 02:51 | XRay Report ---
PROCEDURE: XR CHEST 1V AP TECHNIQUE: Chest radiograph single view. HISTORY: follow up respiratory failure COMPARISONS: 08/18/2018 . FINDINGS: Heart: Normal. Mediastinum/Vessels: Normal. Lungs/Pleural space: No infiltrates or effusions.. Bony thorax: No acute osseous abnormality. Life support devices: The tip of the right PICC line is in the distal SVC. The tip of the ET tube is 5 cm above the denton.. IMPRESSION: No acute infiltrates or effusions as described.. This document is electronically signed by Reynold Garcia MD., Aug 19 2018 02:49:34 AM ET
[2018-08-19 05:28] LABS: Hematocrit 23.1 % (35.5-45.6); Hemoglobin 7.5 gm/dl (11.8-15.2); Mean Corpuscular HGB Conc 32 % (32-34); Mean Corpuscular Volume 88 fl (84-94); Platelet Count 277 K/mm3 (140-440); Red Blood Count 2.62 M/mm3 (3.65-5.03); Red Cell Distribution Width 18.1 % (13.2-15.2)
[2018-08-19 05:56] LABS: BUN/Creatinine Ratio 35; Blood Urea Nitrogen 38 mg/dL (9-20); Calcium 8.1 mg/dL (8.4-10.2); Hemolysis Index 1
--- NOTE | 2018-08-19 09:20 | Progress Note ---
Assessment and Plan - Patient Problems (1) MAYLIN (acute kidney injury) Current Visit: Yes Status: Acute Plan to address problem: Likely pre-renal injury vs ischemic ATN in the setting of cardiac arrest. Renal function remains stable. Continue current supportive care/management. Avoid nephrotoxins, maintain MAP >65mmHg. (2) Acute and chronic respiratory failure Current Visit: Yes Status: Acute Qualifiers: Respiratory failure complication: hypoxia Qualified Code(s): J96.21 - Acute and chronic respiratory failure with hypoxia Plan to address problem: Management per primary attending/pulmonology. (3) Hypernatremia Current Visit: Yes Status: Acute Plan to address problem: Now on FWF 250 cc q4hrs. Will continue to monitor. (4) Hypokalemia Current Visit: Yes Status: Acute Plan to address problem: Replete per protocol. (5) Cardiac arrest Current Visit: Yes Status: Acute Plan to address problem: Off pressors at this time. Remains intubated, unresponsive off sedation. Poor brainstem reflexes per nursing staff. No change in overall mental status at this time. (6) Type 2 diabetes mellitus without complications Current Visit: Yes Status: Acute Plan to address problem: DM management per primary attending. Subjective Date of service: 08/19/18 Principal diagnosis: Acute hypoxemic resp failure; S/P cardiac arrest; Seizures; DM II; H/O CVA Interval history: No acute changes. No changes in overall mental status. Renal function stable. Objective - Vital Signs Vital signs: Vital Signs - 12hr 08/18/18 08/18/18 08/18/18 21:20 21:30 21:40 Temperature Pulse Rate 59 L 56 L 56 L Respiratory 16 17 17 Rate Blood Pressure 139/52 136/50 129/52 O2 Sat by Pulse 100 100 100 Oximetry 08/18/18 08/18/18 08/18/18 21:50 22:00 22:10 Temperature Pulse Rate 54 L 57 L 56 L Respiratory 16 16 16 Rate Blood Pressure 129/52 138/52 136/50 O2 Sat by Pulse 100 100 100 Oximetry 08/18/18 08/18/18 08/18/18 22:20 22:30 22:40 Temperature Pulse Rate 56 L 60 58 L Respiratory 16 15 16 Rate Blood Pressure 136/50 134/53 134/53 O2 Sat by Pulse 100 100 100 Oximetry 08/18/18 08/18/18 08/18/18 22:50 23:00 23:10 Temperature Pulse Rate 57 L 58 L 59 L Respiratory 16 16 16 Rate Blood Pressure 134/53 130/50 130/50 O2 Sat by Pulse 100 100 100 Oximetry 08/18/18 08/18/18 08/18/18 23:20 23:29 23:30 Temperature Pulse Rate 58 L 60 60 Respiratory 17 16 17 Rate Blood Pressure 130/50 130/50 127/51 O2 Sat by Pulse 100 100 100 Oximetry 08/18/18 08/18/18 08/18/18 23:34 23:40 23:50 Temperature Pulse Rate 60 58 L 60 Respiratory 15 15 16 Rate Blood Pressure 127/51 127/51 127/51 O2 Sat by Pulse 100 100 100 Oximetry 08/19/18 08/19/18 08/19/18 00:00 00:10 00:20 Temperature 98.1 F Pulse Rate 58 L 58 L 58 L Respiratory 15 15 14 Rate Blood Pressure 118/52 127/51 127/51 O2 Sat by Pulse 100 100 100 Oximetry 08/19/18 08/19/18 08/19/18 00:30 00:40 00:50 Temperature Pulse Rate 57 L 56 L 55 L Respiratory 15 17 16 Rate Blood Pressure 124/50 118/52 118/52 O2 Sat by Pulse 92 100 100 Oximetry 08/19/18 08/19/18 08/19/18 01:00 01:10 01:20 Temperature Pulse Rate 55 L 59 L 57 L Respiratory 17 15 15 Rate Blood Pressure 121/48 121/48 121/48 O2 Sat by Pulse 100 100 100 Oximetry 08/19/18 08/19/18 08/19/18 01:30 01:40 01:50 Temperature Pulse Rate 57 L 59 L 57 L Respiratory 15 14 14 Rate Blood Pressure 124/49 124/49 124/49 O2 Sat by Pulse 100 100 100 Oximetry 08/19/18 08/19/18 08/19/18 02:00 02:10 02:20 Temperature Pulse Rate 58 L 57 L 61 Respiratory 15 16 13 Rate Blood Pressure 124/50 124/49 124/49 O2 Sat by Pulse 100 100 100 Oximetry 08/19/18 08/19/18 08/19/18 02:30 02:40 02:50 Temperature Pulse Rate 58 L 58 L 57 L Respiratory 15 20 16 Rate Blood Pressure 140/53 140/53 140/53 O2 Sat by Pulse 100 100 100 Oximetry 08/19/18 08/19/18 08/19/18 03:00 03:10 03:20 Temperature Pulse Rate 58 L 56 L 55 L Respiratory 15 19 20 Rate Blood Pressure 125/53 125/53 140/53 O2 Sat by Pulse 100 100 100 Oximetry 08/19/18 08/19/18 08/19/18 03:30 03:40 03:50 Temperature Pulse Rate 60 74 69 Respiratory 14 14 16 Rate Blood Pressure 131/54 131/54 131/54 O2 Sat by Pulse 100 100 100 Oximetry 08/19/18 08/19/18 08/19/18 04:00 04:10 04:20 Temperature 99.0 F Pulse Rate 63 59 L 61 Respiratory 17 17 17 Rate Blood Pressure 135/55 135/55 135/55 O2 Sat by Pulse 100 100 100 Oximetry 08/19/18 08/19/18 08/19/18 04:30 04:40 04:46 Temperature Pulse Rate 58 L 57 L 55 L Respiratory 14 15 Rate Blood Pressure 121/50 121/50 121/50 O2 Sat by Pulse 100 100 100 Oximetry 08/19/18 08/19/18 08/19/18 04:50 05:00 05:10 Temperature Pulse Rate 56 L 54 L 55 L Respiratory 15 14 16 Rate Blood Pressure 121/50 118/50 118/50 O2 Sat by Pulse 100 100 100 Oximetry 08/19/18 08/19/18 08/19/18 05:20 05:30 05:40 Temperature Pulse Rate 54 L 57 L 57 L Respiratory 13 14 16 Rate Blood Pressure 118/50 129/51 129/51 O2 Sat by Pulse 100 100 100 Oximetry 08/19/18 08/19/18 08/19/18 05:50 06:00 06:10 Temperature Pulse Rate 56 L 57 L 56 L Respiratory 15 14 18 Rate Blood Pressure 129/51 124/52 124/52 O2 Sat by Pulse 100 100 100 Oximetry 08/19/18 08/19/18 08/19/18 06:20 06:30 06:40 Temperature Pulse Rate 56 L 59 L 57 L Respiratory 20 15 15 Rate Blood Pressure 124/52 122/50 122/50 O2 Sat by Pulse 100 100 100 Oximetry 08/19/18 08/19/18 08/19/18 06:50 07:00 07:10 Temperature Pulse Rate 55 L 59 L 55 L Respiratory 17 15 18 Rate Blood Pressure 122/50 120/47 120/47 O2 Sat by Pulse 100 100 100 Oximetry 08/19/18 08/19/18 08/19/18 07:20 07:30 07:40 Temperature Pulse Rate 57 L 56 L 54 L Respiratory 16 15 16 Rate Blood Pressure 122/50 121/52 121/52 O2 Sat by Pulse 100 100 100 Oximetry 08/19/18 08/19/18 08/19/18 07:50 08:00 08:10 Temperature Pulse Rate 57 L 56 L 56 L Respiratory 16 15 15 Rate Blood Pressure 121/52 126/49 126/49 O2 Sat by Pulse 100 100 100 Oximetry 08/19/18 08/19/18 08/19/18 08:20 08:30 08:40 Temperature Pulse Rate 52 L 53 L 55 L Respiratory 13 16 14 Rate Blood Pressure 126/49 123/49 123/49 O2 Sat by Pulse 100 100 100 Oximetry 08/19/18 08/19/18 08:50 09:00 Temperature Pulse Rate 55 L 55 L Respiratory 16 16 Rate Blood Pressure 123/49 125/48 O2 Sat by Pulse 100 100 Oximetry - General Appearance General appearance: cachectic, chronically ill, intubated, frail EENT: ATNC Neck: no JVD, no thyromegaly Respiratory: Present: Clear to Ascultation Cardiology: regular, S1S2 Gastrointestinal: normal Integumentary: warm and dry Neurologic: other (unresponsive off sedation ) Musculoskeletal: other - Lab 08/19/18 05:16 08/19/18 05:16 Most recent lab results Calcium 8.1 mg/dL (8.4-10.2) L D 08/19/18 05:16 Phosphorus 3.90 mg/dL (2.5-4.5) 08/15/18 04:05 Magnesium 2.20 mg/dL (1.7-2.3) 08/15/18 04:05 60.9 mg/dL (0.1-20.0) H 08/14/18 17:20 32 mmol/L 08/14/18 17:20 64 mg/dL (5-11.8) H 08/14/18 17:20 - Allied health notes Allied health notes reviewed: nursing Medications & Allergies - Medications Allergies/Adverse Reactions: Allergies No Known Allergies Allergy (Verified 08/12/18 21:47) Home Medications: Home Medications Medication Instructions Recorded Confirmed Last Taken Type Acetaminophen TAB 2 1000units FEEDTUBE Q6HR PRN 08/18/18 08/18/18 Unknown History Amantadine [Symmetrel] 100 mg FEEDTUBE DAILY 08/18/18 08/18/18 08/13/18 History Amlodipine Besylate [Norvasc] 5 mg FEEDTUBE DAILY 08/18/18 08/18/18 08/13/18 History Ascorbic Acid [Vitamin C Oral Liq] 500 mg FEEDTUBE QDAY 08/18/18 08/18/18 08/13/18 History Ascorbic Acid [Vitamin C with Fiordaliza 1 tab FEEDTUBE DAILY 08/18/18 08/18/18 Unknown History Hips] Aspirin BABY CHEW TAB 1 tab FEEDTUBE DAILY 08/18/18 08/18/18 Unknown History Aspirin BABY CHEW TAB 81 mg FEEDTUBE DAILY 08/18/18 08/18/18 08/13/18 History Atorvastatin Calcium [Lipitor] 40 mg FEEDTUBE DAILY 08/18/18 08/18/18 08/13/18 History Benazepril HCl 10 mg FEEDTUBE DAILY 08/18/18 08/18/18 08/13/18 History Bisacodyl [Dulcolax suppos] 10 mg AL QDAY PRN 08/18/18 08/18/18 Unknown History Docusate Sodium [Colace ORAL LIQ] 100 mg FEEDTUBE QDAY PRN 08/18/18 08/18/18 Unknown History Ferrous Sulfate [Ferrous Sulfate 7.5 ml FEEDTUBE DAILY 08/18/18 08/18/18 08/13/18 History 220 MG/5 ML] Glycopyrrolate [Robinul] 2 mg FEEDTUBE Q8H 08/18/18 08/18/18 08/13/18 History Heparin Sod,Porcine/0.9 % NaCl 5,000 units SUB-Q Q8H 08/18/18 08/18/18 Unknown History [Heparin 5,000 Unit/5 ml-Ns] Insulin Glargine,Hum.rec.anlog 40 unit SQ HS 08/18/18 08/18/18 08/12/18 History [Basaglar Kwikpen U-100] Lacosamide [Vimpat] 1 tab FEEDTUBE Q12HR 08/18/18 08/18/18 Unknown History Lipitor 10 mg FEEDTUBE DAILY 08/18/18 08/18/18 Unknown History Mag-Al Plus Suspension 5 ml FEEDTUBE Q4HR PRN 08/18/18 08/19/18 Unknown History Melatonin 3 mg FEEDTUBE HS 08/18/18 08/18/18 Unknown History Sucralfate [Carafate] 1 gm FEEDTUBE Q8H 08/18/18 08/18/18 08/13/18 History Tamsulosin 0.4 mg FEEDTUBE DAILY 08/18/18 08/18/18 Unknown History guaiFENesin 200 mg FEEDTUBE Q4H PRN 08/18/18 08/18/18 Unknown History Active Medications: Generic Name Dose Route Start Last Admin Trade Name Freq PRN Reason Stop Dose Admin Acetaminophen 650 mg 08/13/18 11:40 08/13/18 16:09 Tylenol PO 650 mg Q6H PRN Administration Fever >101 Lipase/Protease/Amylase 1 each 08/13/18 15:[address] 10,500 Unit FEEDTUBE PRN PRN For Clogged Feeding Tube Aspirin 325 mg 08/17/18 10:00 08/18/18 09:37 Aspirin PO 325 mg QDAY LENCHO Administration Atorvastatin Calcium 40 mg 08/14/18 22:00 08/18/18 21:39 Lipitor PO 40 mg QHS LENCHO Administration Dextrose 50 ml 08/13/18 01:34 D50w (25gm) Syringe IV PRN PRN Hypoglycemia Enoxaparin Sodium 40 mg 08/17/18 22:00 08/18/18 21:39 Lovenox SUB-Q 40 mg QDAY@2200 LENCHO Administration Famotidine 20 mg 08/19/18 10:00 Pepcid PO BID LENCHO Hydrophilic Ointment 1 applic 08/13/18 12:21 Vaseline Lip Therapy TP Q2HR PRN Dry Lips Fentanyl Citrate 2,000 mcg in 100 mls @ 3.629 mls/hr 08/14/18 13:00 Fentanyl Drip Premix IV TITR LENCHO Protocol 1 MCG/KG/HR Insulin Glargine 30 units 08/19/18 10:00 Lantus SUB-Q DAILY [facility] Insulin Human Lispro 0 unit 08/13/18 06:00 08/18/18 23:46 Humalog SUB-Q 3 unit Q6HR LENCHO Administration Protocol Levetiracetam 1,000 mg 08/13/18 15:00 08/18/18 21:35 Keppra PO 1,000 mg BID LENCHO Administration Multi-Ingred Cream/Lotion/Oil/Oint 1 applic 08/13/18 12:21 08/17/18 00:41 Artificial Tears Ophth Oint OU 1 applic Q4HR PRN Administration Dry Eye(s) Ondansetron HCl 4 mg 08/13/18 01:34 Zofran IV Q8H PRN Nausea And Vomiting Simple Syrup 15 ml 08/13/18 15:55 Simple Syrup FEEDTUBE PRN PRN Hypoglycemia Simple Syrup 30 ml 08/13/18 15:55 Simple Syrup FEEDTUBE PRN PRN Hypoglycemia Sodium Bicarbonate 325 mg 08/13/18 15:55 Sodium Bicarbonate FEEDTUBE PRN PRN For Clogged Feeding Tube Sodium Chloride 10 ml 08/13/18 10:00 08/18/18 09:39 Sodium Chloride Flush Syringe 10 Ml IV 10 ml BID LENCHO Administration Sodium Chloride 10 ml 08/13/18 01:34 Sodium Chloride Flush Syringe 10 Ml IV PRN PRN LINE FLUSH
[2018-08-19] MEDS: SODIUM CHLORIDE FLUSH SYRINGE 10 ML IV SCH ×3 (09:40→22:11)
[2018-08-19] MEDS: KEPPRA PO SCH ×2 (10:32→22:10)
[2018-08-19] MEDS: ASPIRIN PO SCH (10:32)
[2018-08-19] MEDS: LANTUS SUB-Q SCH (10:32)
[2018-08-19] MEDS: PEPCID PO SCH ×2 (10:38→22:10)
--- NOTE | 2018-08-19 10:57 | Progress Note ---
Assessment and Plan Acute hypoxemic respiratory failure on chronic. Status post cardiac arrest. Seizure disorder with breakthrough seizures. History of diabetes. History of cerebrovascular accident. Oropharyngeal dysphagia. History of seizures. (AMS is rate limiting step to safe extubation at this point) - continue daily SBT's as tolerated (not tolerating well) - tracheostomy evaluation ongoing (appreciate surgery input) - continue to rest qhs on MVS at set rate at 12/min - chest tube dislodged but no recurrent pneumothorax - neurology evaluation ongoing (pupils reactive sluggishly) - sedation target for RASS 0 to -1 (daily SAT's as tolerated) - continue Keppra for seizures with prn ativan IV for breakthrough - continue GI & VTE prophylaxis - continue bronchodilators with pulmonary hygiene per RT - continue to wean supplemental oxygen to keep O2 sats 88-90% - Lung protective strategies - VAP bundle addressed - Continue cardioprotective measures - Replete electrolytes as indicated - Continue to rest at night on full MVS - Monitor renal indices closely - Avoid nephrotoxic agents, adjust all medications for CrCL - Strict intake and output monitoring - continue enteral nutrition as tolerated - Increased lantus to 30 units SQ daily for persistent hyperglycemia - continue accuchecks with glycemic control per SSI for target glucose of 140- 180 mg/dL - Maintenance of sleep -wake cycle - Mobility as tolerated by hemodynamics - Influenza and pneumonia vaccination per protocol .... he will need a tracheostomy if continued care is preferred by his next of kin and i will discuss with her next 24 hours PROGNOSIS: GUARDED CONDITION: CRITICAL CODE STATUS: FULL CODE The high probability of a clinically significant, sudden or life-threatening deterioration of the [respiratory, neurology, renal] system(s) required my full and direct attention, intervention and personal management. The aggregate critical care time was [34] minutes without overlap. Time includes spent on; [x] Data Review and interpretation [x] Patient assessment and monitoring of vital signs [x] Documentation [x] Medication orders and management Subjective Date of service: 08/19/18 Principal diagnosis: Acute hypoxemic resp failure; S/P cardiac arrest; Seizures; DM II; H/O CVA Interval history: Patient is seen today for: Acute hypoxemic respiratory failure on chronic; Status post cardiac arrest; Seizure disorder with breakthrough seizures; History of diabetes; History of cerebrovascular accident; Oropharyngeal dysphagia; History of seizures. Seen and examined at bedside; 24hour events reviewed; nursing and respiratory care staff consulted; no adverse overnight events reported to me; remains on MVS; AMS is persistent; still failing SBT's due to Apnea's; No emesis or overt aspiration and no breakthrough seizures Objective Vital Signs - 12hr 08/18/18 08/18/18 08/18/18 23:00 23:10 23:20 Temperature Pulse Rate 58 L 59 L 58 L Respiratory 16 16 17 Rate Blood Pressure 130/50 130/50 130/50 O2 Sat by Pulse 100 100 100 Oximetry 08/18/18 08/18/18 08/18/18 23:29 23:30 23:34 Temperature Pulse Rate 60 60 60 Respiratory 16 17 15 Rate Blood Pressure 130/50 127/51 127/51 O2 Sat by Pulse 100 100 100 Oximetry 08/18/18 08/18/18 08/19/18 23:40 23:50 00:00 Temperature 98.1 F Pulse Rate 58 L 60 58 L Respiratory 15 16 15 Rate Blood Pressure 127/51 127/51 118/52 O2 Sat by Pulse 100 100 100 Oximetry 08/19/18 08/19/18 08/19/18 00:10 00:20 00:30 Temperature Pulse Rate 58 L 58 L 57 L Respiratory 15 14 15 Rate Blood Pressure 127/51 127/51 124/50 O2 Sat by Pulse 100 100 92 Oximetry 08/19/18 08/19/18 08/19/18 00:40 00:50 01:00 Temperature Pulse Rate 56 L 55 L 55 L Respiratory 17 16 17 Rate Blood Pressure 118/52 118/52 121/48 O2 Sat by Pulse 100 100 100 Oximetry 08/19/18 08/19/18 08/19/18 01:10 01:20 01:30 Temperature Pulse Rate 59 L 57 L 57 L Respiratory 15 15 15 Rate Blood Pressure 121/48 121/48 124/49 O2 Sat by Pulse 100 100 100 Oximetry 08/19/18 08/19/18 08/19/18 01:40 01:50 02:00 Temperature Pulse Rate 59 L 57 L 58 L Respiratory 14 14 15 Rate Blood Pressure 124/49 124/49 124/50 O2 Sat by Pulse 100 100 100 Oximetry 08/19/18 08/19/18 08/19/18 02:10 02:20 02:30 Temperature Pulse Rate 57 L 61 58 L Respiratory 16 13 15 Rate Blood Pressure 124/49 124/49 140/53 O2 Sat by Pulse 100 100 100 Oximetry 08/19/18 08/19/18 08/19/18 02:40 02:50 03:00 Temperature Pulse Rate 58 L 57 L 58 L Respiratory 20 16 15 Rate Blood Pressure 140/53 140/53 125/53 O2 Sat by Pulse 100 100 100 Oximetry 08/19/18 08/19/18 08/19/18 03:10 03:20 03:30 Temperature Pulse Rate 56 L 55 L 60 Respiratory 19 20 14 Rate Blood Pressure 125/53 140/53 131/54 O2 Sat by Pulse 100 100 100 Oximetry 08/19/18 08/19/18 08/19/18 03:40 03:50 04:00 Temperature 99.0 F Pulse Rate 74 69 63 Respiratory 14 16 17 Rate Blood Pressure 131/54 131/54 135/55 O2 Sat by Pulse 100 100 100 Oximetry 08/19/18 08/19/18 08/19/18 04:10 04:20 04:30 Temperature Pulse Rate 59 L 61 58 L Respiratory 17 17 14 Rate Blood Pressure 135/55 135/55 121/50 O2 Sat by Pulse 100 100 100 Oximetry 08/19/18 08/19/18 08/19/18 04:40 04:46 04:50 Temperature Pulse Rate 57 L 55 L 56 L Respiratory 15 15 Rate Blood Pressure 121/50 121/50 121/50 O2 Sat by Pulse 100 100 100 Oximetry 08/19/18 08/19/18 08/19/18 05:00 05:10 05:20 Temperature Pulse Rate 54 L 55 L 54 L Respiratory 14 16 13 Rate Blood Pressure 118/50 118/50 118/50 O2 Sat by Pulse 100 100 100 Oximetry 08/19/18 08/19/18 08/19/18 05:30 05:40 05:50 Temperature Pulse Rate 57 L 57 L 56 L Respiratory 14 16 15 Rate Blood Pressure 129/51 129/51 129/51 O2 Sat by Pulse 100 100 100 Oximetry 08/19/18 08/19/18 08/19/18 06:00 06:10 06:20 Temperature Pulse Rate 57 L 56 L 56 L Respiratory 14 18 20 Rate Blood Pressure 124/52 124/52 124/52 O2 Sat by Pulse 100 100 100 Oximetry 08/19/18 08/19/18 08/19/18 06:30 06:40 06:50 Temperature Pulse Rate 59 L 57 L 55 L Respiratory 15 15 17 Rate Blood Pressure 122/50 122/50 122/50 O2 Sat by Pulse 100 100 100 Oximetry 08/19/18 08/19/18 08/19/18 07:00 07:10 07:20 Temperature Pulse Rate 59 L 55 L 57 L Respiratory 15 18 16 Rate Blood Pressure 120/47 120/47 122/50 O2 Sat by Pulse 100 100 100 Oximetry 08/19/18 08/19/18 08/19/18 07:30 07:40 07:50 Temperature Pulse Rate 56 L 54 L 57 L Respiratory 15 16 16 Rate Blood Pressure 121/52 121/52 121/52 O2 Sat by Pulse 100 100 100 Oximetry 08/19/18 08/19/18 08/19/18 08:00 08:10 08:20 Temperature Pulse Rate 56 L 56 L 52 L Respiratory 15 15 13 Rate Blood Pressure 126/49 126/49 126/49 O2 Sat by Pulse 100 100 100 Oximetry 08/19/18 08/19/18 08/19/18 08:30 08:40 08:50 Temperature Pulse Rate 53 L 55 L 55 L Respiratory 16 14 16 Rate Blood Pressure 123/49 123/49 123/49 O2 Sat by Pulse 100 100 100 Oximetry 08/19/18 09:00 Temperature Pulse Rate 55 L Respiratory 16 Rate Blood Pressure 125/48 O2 Sat by Pulse 100 Oximetry Constitutional: no acute distress, other (Elderly looking AAM, normocephalic resting in bed on MVS) Eyes: non-icteric ENT: oropharynx moist, other (ETT 23-24 cm JOVI) Neck: supple, no lymphadenopathy, no JVD, other (no thyromegaly) Effort: mildly labored Ascultation: Bilateral: diminished breath sounds, rhonchi Percussion: Bilateral: not dull Cardiovascular: regular rate and rhythm Gastrointestinal: normoactive bowel sounds, soft, non-tender, non-distended Integumentary: normal Extremities: no cyanosis, pulses normal, no ischemia or petechiae, edema (trace ) Neurologic: unable to assess, other (slight pupillary constriction to light) Psychiatric: other (unable to assess) CBC and BMP: 08/26/18 04:39 08/27/18 06:30 ABG, PT/INR, D-dimer: ABG POC ABG pH 7.404 (7.35-7.45) 08/19/18 04:54 POC ABG pCO2 37.8 (35-45) 08/19/18 04:54 POC ABG pO2 58 (80-105) L 08/19/18 04:54 POC ABG HCO3 23.6 (22-26 mml/L) 08/19/18 04:54 POC ABG Total CO2 25 (23-27mmol/L) 08/19/18 04:54 POC ABG O2 Sat 90 08/19/18 04:54 PT/INR, D-dimer PT 16.5 Sec. (12.2-14.9) H 08/13/18 00:47 INR 1.25 (0.87-1.13) H 08/13/18 00:47 2742.50 ng/mlDDU (0-234) H 08/13/18 20:07 Abnormal lab findings: Abnormal Labs 08/12/18 08/12/18 08/12/18 21:44 21:44 21:44 WBC 15.5 H RBC 3.12 L Hgb 8.8 L Hct 28.9 L MCHC 31 L RDW 19.5 H [place] # Seg Neutrophils % Lymphocytes % (Manual) 48.0 H Seg Neutrophils # Lymphocytes # (Manual) 7.4 H PT 17.8 H INR 1.37 H APTT D-Dimer Heparin Anti-Xa Level POC ABG pH POC ABG pCO2 POC ABG pO2 Sodium 159 H Potassium Chloride 118.5 H Carbon Dioxide BUN 34 H Creatinine Glucose 161 H POC Glucose Lactic Acid Calcium Magnesium AST Alkaline Phosphatase Total Creatine Kinase CK-MB (CK-2) Troponin T 0.105 H* C-Reactive Protein Total Protein Albumin Cholesterol LDL Cholesterol Direct HDL Cholesterol Urine WBC (Auto) Urine Creatinine Urine Total Protein Crossmatch 08/13/18 08/13/18 08/13/18 00:32 00:47 00:47 WBC RBC Hgb 9.2 L Hct 29.6 L MCHC RDW [place] # Seg Neutrophils % Lymphocytes % (Manual) Seg Neutrophils # Lymphocytes # (Manual) PT 16.5 H INR 1.25 H APTT 37.3 H D-Dimer Heparin Anti-Xa Level POC ABG pH POC ABG pCO2 POC ABG pO2 Sodium Potassium Chloride Carbon Dioxide BUN Creatinine Glucose POC Glucose Lactic Acid Calcium Magnesium AST Alkaline Phosphatase Total Creatine Kinase 211 H CK-MB (CK-2) 7.7 H Troponin T 0.169 H* D C-Reactive Protein Total Protein Albumin Cholesterol 46 L LDL Cholesterol Direct 17 L HDL Cholesterol 6 L Urine WBC (Auto) Urine Creatinine Urine Total Protein Crossmatch 08/13/18 08/13/18 08/13/18 00:50 02:25 05:34 WBC RBC Hgb Hct MCHC RDW [place] # Seg Neutrophils % Lymphocytes % (Manual) Seg Neutrophils # Lymphocytes # (Manual) PT INR APTT D-Dimer Heparin Anti-Xa Level POC ABG pH 7.503 H POC ABG pCO2 POC ABG pO2 253 H Sodium Potassium Chloride Carbon Dioxide BUN Creatinine Glucose POC Glucose Lactic Acid Calcium Magnesium AST Alkaline Phosphatase Total Creatine Kinase 311 H CK-MB (CK-2) 10.4 H Troponin T 0.283 H* D C-Reactive Protein Total Protein Albumin Cholesterol LDL Cholesterol Direct HDL Cholesterol Urine WBC (Auto) > 182.0 H Urine Creatinine Urine Total Protein Crossmatch 08/13/18 08/13/18 08/13/18 06:35 10:10 10:10 WBC RBC Hgb Hct MCHC RDW [place] # Seg Neutrophils % Lymphocytes % (Manual) Seg Neutrophils # Lymphocytes # (Manual) PT INR APTT D-Dimer Heparin Anti-Xa Level POC ABG pH 7.554 H POC ABG pCO2 33.5 L POC ABG pO2 220 H Sodium 158 H Potassium Chloride 117.1 H Carbon Dioxide BUN 53 H Creatinine 2.0 H Glucose 247 H POC Glucose Lactic Acid Calcium 8.2 L Magnesium AST Alkaline Phosphatase Total Creatine Kinase 309 H CK-MB (CK-2) 4.1 H Troponin T 0.470 H* D C-Reactive Protein Total Protein Albumin Cholesterol LDL Cholesterol Direct HDL Cholesterol Urine WBC (Auto) Urine Creatinine Urine Total Protein Crossmatch 08/13/18 08/13/18 08/13/18 12:53 12:53 17:55 WBC RBC Hgb Hct MCHC RDW [place] # Seg Neutrophils % Lymphocytes % (Manual) Seg Neutrophils # Lymphocytes # (Manual) PT INR APTT D-Dimer Heparin Anti-Xa Level POC ABG pH POC ABG pCO2 POC ABG pO2 Sodium Potassium Chloride Carbon Dioxide BUN Creatinine Glucose POC Glucose 308 H Lactic Acid 2.80 H* Calcium Magnesium 2.50 H AST Alkaline Phosphatase Total Creatine Kinase CK-MB (CK-2) Troponin T C-Reactive Protein 16.90 H Total Protein Albumin Cholesterol LDL Cholesterol Direct HDL Cholesterol Urine WBC (Auto) Urine Creatinine Urine Total Protein Crossmatch 08/13/18 08/13/18 08/13/18 20:07 21:16 23:17 WBC RBC Hgb Hct MCHC RDW [place] # Seg Neutrophils % Lymphocytes % (Manual) Seg Neutrophils # Lymphocytes # (Manual) PT INR APTT D-Dimer 2742.50 H Heparin Anti-Xa Level POC ABG pH 7.483 H POC ABG pCO2 30.8 L POC ABG pO2 150 H Sodium Potassium Chloride Carbon Dioxide BUN Creatinine Glucose POC Glucose 245 H Lactic Acid Calcium Magnesium AST Alkaline Phosphatase Total Creatine Kinase CK-MB (CK-2) Troponin T C-Reactive Protein Total Protein Albumin Cholesterol LDL Cholesterol Direct HDL Cholesterol Urine WBC (Auto) Urine Creatinine Urine Total Protein Crossmatch 08/14/18 08/14/18 08/14/18 04:03 04:03 04:56 WBC 18.2 H RBC 2.62 L Hgb 7.3 L Hct 24.5 L MCHC RDW 18.9 H [place] # 1.2 H Seg Neutrophils % 79.4 H Lymphocytes % (Manual) Seg Neutrophils # 14.5 H Lymphocytes # (Manual) PT INR APTT D-Dimer Heparin Anti-Xa Level POC ABG pH POC ABG pCO2 33.5 L POC ABG pO2 153 H Sodium 152 H Potassium 3.4 L Chloride 113.8 H Carbon Dioxide BUN 72 H Creatinine 2.7 H Glucose 239 H POC Glucose Lactic Acid Calcium 7.6 L Magnesium AST 50 H Alkaline Phosphatase 219 H Total Creatine Kinase CK-MB (CK-2) Troponin T 0.409 H* C-Reactive Protein Total Protein 6.2 L Albumin 1.9 L Cholesterol LDL Cholesterol Direct HDL Cholesterol Urine WBC (Auto) Urine Creatinine Urine Total Protein Crossmatch 08/14/18 08/14/18 08/14/18 05:18 13:38 15:35 WBC RBC Hgb Hct MCHC RDW [place] # Seg Neutrophils % Lymphocytes % (Manual) Seg Neutrophils # Lymphocytes # (Manual) PT INR APTT D-Dimer Heparin Anti-Xa Level POC ABG pH POC ABG pCO2 POC ABG pO2 Sodium 150 H Potassium 3.2 L Chloride 114.5 H Carbon Dioxide BUN 69 H Creatinine 2.3 H Glucose 247 H POC Glucose 242 H 296 H Lactic Acid Calcium 7.2 L Magnesium AST Alkaline Phosphatase Total Creatine Kinase CK-MB (CK-2) Troponin T C-Reactive Protein Total Protein Albumin Cholesterol LDL Cholesterol Direct HDL Cholesterol Urine WBC (Auto) Urine Creatinine Urine Total Protein Crossmatch 08/14/18 08/14/18 08/14/18 17:01 17:20 23:47 WBC RBC Hgb Hct MCHC RDW [place] # Seg Neutrophils % Lymphocytes % (Manual) Seg Neutrophils # Lymphocytes # (Manual) PT INR APTT D-Dimer Heparin Anti-Xa Level POC ABG pH POC ABG pCO2 POC ABG pO2 Sodium Potassium Chloride Carbon Dioxide BUN Creatinine Glucose POC Glucose 261 H 280 H Lactic Acid Calcium Magnesium AST Alkaline Phosphatase Total Creatine Kinase CK-MB (CK-2) Troponin T C-Reactive Protein Total Protein Albumin Cholesterol LDL Cholesterol Direct HDL Cholesterol Urine WBC (Auto) Urine Creatinine 60.9 H Urine Total Protein 64 H Crossmatch 08/15/18 08/15/18 08/15/18 04:05 04:05 04:05 WBC RBC Hgb 6.3 L Hct 19.7 L* MCHC RDW [place] # Seg Neutrophils % Lymphocytes % (Manual) Seg Neutrophils # Lymphocytes # (Manual) PT INR APTT D-Dimer Heparin Anti-Xa Level 0.17 L POC ABG pH POC ABG pCO2 POC ABG pO2 Sodium 146 H Potassium 3.0 L Chloride 110.6 H Carbon Dioxide BUN 64 H Creatinine 2.2 H Glucose 231 H POC Glucose Lactic Acid Calcium 7.1 L Magnesium AST Alkaline Phosphatase Total Creatine Kinase CK-MB (CK-2) Troponin T C-Reactive Protein Total Protein Albumin Cholesterol LDL Cholesterol Direct HDL Cholesterol Urine WBC (Auto) Urine Creatinine Urine Total Protein Crossmatch 08/15/18 08/15/18 08/15/18 05:21 05:26 06:35 WBC RBC Hgb Hct MCHC RDW [place] # Seg Neutrophils % Lymphocytes % (Manual) Seg Neutrophils # Lymphocytes # (Manual) PT INR APTT 79.0 H* D-Dimer Heparin Anti-Xa Level POC ABG pH 7.494 H POC ABG pCO2 POC ABG pO2 155 H Sodium Potassium Chloride Carbon Dioxide BUN Creatinine Glucose POC Glucose 271 H Lactic Acid Calcium Magnesium AST Alkaline Phosphatase Total Creatine Kinase CK-MB (CK-2) Troponin T C-Reactive Protein Total Protein Albumin Cholesterol LDL Cholesterol Direct HDL Cholesterol Urine WBC (Auto) Urine Creatinine Urine Total Protein Crossmatch 08/15/18 08/15/18 08/15/18 12:10 15:31 17:27 WBC RBC Hgb Hct MCHC RDW [place] # Seg Neutrophils % Lymphocytes % (Manual) Seg Neutrophils # Lymphocytes # (Manual) PT INR APTT D-Dimer Heparin Anti-Xa Level POC ABG pH POC ABG pCO2 POC ABG pO2 Sodium Potassium Chloride Carbon Dioxide BUN Creatinine Glucose POC Glucose 301 H 287 H Lactic Acid Calcium Magnesium AST Alkaline Phosphatase Total Creatine Kinase CK-MB (CK-2) Troponin T C-Reactive Protein Total Protein Albumin Cholesterol LDL Cholesterol Direct HDL Cholesterol Urine WBC (Auto) Urine Creatinine Urine Total Protein Crossmatch See Detail 08/15/18 08/15/18 08/16/18 21:41 23:45 04:13 WBC RBC Hgb Hct MCHC RDW [place] # Seg Neutrophils % Lymphocytes % (Manual) Seg Neutrophils # Lymphocytes # (Manual) PT INR APTT D-Dimer Heparin Anti-Xa Level 0.19 L POC ABG pH POC ABG pCO2 32.1 L POC ABG pO2 107 H Sodium Potassium Chloride Carbon Dioxide BUN Creatinine Glucose POC Glucose 163 H Lactic Acid Calcium Magnesium AST Alkaline Phosphatase Total Creatine Kinase CK-MB (CK-2) Troponin T C-Reactive Protein Total Protein Albumin Cholesterol LDL Cholesterol Direct HDL Cholesterol Urine WBC (Auto) Urine Creatinine Urine Total Protein Crossmatch 08/16/18 08/16/18 08/16/18 04:50 05:28 11:30 WBC RBC 2.67 L Hgb 8.1 L Hct 23.4 L MCHC 35 H RDW 18.3 H [place] # Seg Neutrophils % Lymphocytes % (Manual) Seg Neutrophils # Lymphocytes # (Manual) PT INR APTT D-Dimer Heparin Anti-Xa Level 0.19 L POC ABG pH POC ABG pCO2 POC ABG pO2 Sodium Potassium Chloride Carbon Dioxide BUN Creatinine Glucose POC Glucose 141 H Lactic Acid Calcium Magnesium AST Alkaline Phosphatase Total Creatine Kinase CK-MB (CK-2) Troponin T C-Reactive Protein Total Protein Albumin Cholesterol LDL Cholesterol Direct HDL Cholesterol Urine WBC (Auto) Urine Creatinine Urine Total Protein Crossmatch 08/16/18 08/16/18 08/16/18 11:30 12:00 12:01 WBC RBC Hgb Hct MCHC RDW [place] # Seg Neutrophils % Lymphocytes % (Manual) Seg Neutrophils # Lymphocytes # (Manual) PT INR APTT D-Dimer Heparin Anti-Xa Level 0.15 L POC ABG pH POC ABG pCO2 POC ABG pO2 Sodium Potassium Chloride 107.8 H Carbon Dioxide 21 L BUN 47 H Creatinine 1.6 H Glucose 221 H POC Glucose 267 H Lactic Acid Calcium 6.9 L Magnesium AST Alkaline Phosphatase Total Creatine Kinase CK-MB (CK-2) Troponin T C-Reactive Protein Total Protein Albumin Cholesterol LDL Cholesterol Direct HDL Cholesterol Urine WBC (Auto) Urine Creatinine Urine Total Protein Crossmatch 08/16/18 08/16/18 08/16/18 17:23 20:01 23:13 WBC RBC Hgb Hct MCHC RDW [place] # Seg Neutrophils % Lymphocytes % (Manual) Seg Neutrophils # Lymphocytes # (Manual) PT INR APTT D-Dimer Heparin Anti-Xa Level 0.26 L POC ABG pH POC ABG pCO2 POC ABG pO2 Sodium Potassium Chloride Carbon Dioxide BUN Creatinine Glucose POC Glucose 245 H 256 H Lactic Acid Calcium Magnesium AST Alkaline Phosphatase Total Creatine Kinase CK-MB (CK-2) Troponin T C-Reactive Protein Total Protein Albumin Cholesterol LDL Cholesterol Direct HDL Cholesterol Urine WBC (Auto) Urine Creatinine Urine Total Protein Crossmatch 08/17/18 08/17/18 08/17/18 04:29 04:55 05:34 WBC RBC Hgb 8.2 L Hct 24.3 L MCHC RDW [place] # Seg Neutrophils % Lymphocytes % (Manual) Seg Neutrophils # Lymphocytes # (Manual) PT INR APTT D-Dimer Heparin Anti-Xa Level POC ABG pH POC ABG pCO2 32.4 L POC ABG pO2 108 H Sodium Potassium Chloride Carbon Dioxide BUN Creatinine Glucose POC Glucose 268 H Lactic Acid Calcium Magnesium AST Alkaline Phosphatase Total Creatine Kinase CK-MB (CK-2) Troponin T C-Reactive Protein Total Protein Albumin Cholesterol LDL Cholesterol Direct HDL Cholesterol Urine WBC (Auto) Urine Creatinine Urine Total Protein Crossmatch 08/17/18 08/17/18 08/17/18 11:54 13:44 17:24 WBC RBC Hgb Hct MCHC RDW [place] # Seg Neutrophils % Lymphocytes % (Manual) Seg Neutrophils # Lymphocytes # (Manual) PT INR APTT D-Dimer Heparin Anti-Xa Level POC ABG pH POC ABG pCO2 32.7 L POC ABG pO2 142 H Sodium Potassium Chloride Carbon Dioxide BUN Creatinine Glucose POC Glucose 295 H 283 H Lactic Acid Calcium Magnesium AST Alkaline Phosphatase Total Creatine Kinase CK-MB (CK-2) Troponin T C-Reactive Protein Total Protein Albumin Cholesterol LDL Cholesterol Direct HDL Cholesterol Urine WBC (Auto) Urine Creatinine Urine Total Protein Crossmatch 08/18/18 08/18/18 08/18/18 00:05 00:59 04:15 WBC RBC Hgb Hct MCHC RDW [place] # Seg Neutrophils % Lymphocytes % (Manual) Seg Neutrophils # Lymphocytes # (Manual) PT INR APTT D-Dimer Heparin Anti-Xa Level POC ABG pH POC ABG pCO2 POC ABG pO2 115 H Sodium Potassium Chloride Carbon Dioxide BUN Creatinine Glucose POC Glucose 247 H 251 H Lactic Acid Calcium Magnesium AST Alkaline Phosphatase Total Creatine Kinase CK-MB (CK-2) Troponin T C-Reactive Protein Total Protein Albumin Cholesterol LDL Cholesterol Direct HDL Cholesterol Urine WBC (Auto) Urine Creatinine Urine Total Protein Crossmatch 08/18/18 08/18/18 08/18/18 05:02 12:20 17:51 WBC RBC Hgb Hct MCHC RDW [place] # Seg Neutrophils % Lymphocytes % (Manual) Seg Neutrophils # Lymphocytes # (Manual) PT INR APTT D-Dimer Heparin Anti-Xa Level POC ABG pH POC ABG pCO2 POC ABG pO2 Sodium Potassium Chloride Carbon Dioxide BUN Creatinine Glucose POC Glucose 282 H 209 H 261 H Lactic Acid Calcium Magnesium AST Alkaline Phosphatase Total Creatine Kinase CK-MB (CK-2) Troponin T C-Reactive Protein Total Protein Albumin Cholesterol LDL Cholesterol Direct HDL Cholesterol Urine WBC (Auto) Urine Creatinine Urine Total Protein Crossmatch 08/18/18 08/19/18 08/19/18 23:30 04:54 05:16 WBC RBC 2.62 L Hgb 7.5 L Hct 23.1 L MCHC RDW 18.1 H [place] # Seg Neutrophils % Lymphocytes % (Manual) Seg Neutrophils # Lymphocytes # (Manual) PT INR APTT D-Dimer Heparin Anti-Xa Level POC ABG pH POC ABG pCO2 POC ABG pO2 58 L Sodium Potassium Chloride Carbon Dioxide BUN Creatinine Glucose POC Glucose 231 H Lactic Acid Calcium Magnesium AST Alkaline Phosphatase Total Creatine Kinase CK-MB (CK-2) Troponin T C-Reactive Protein Total Protein Albumin Cholesterol LDL Cholesterol Direct HDL Cholesterol Urine WBC (Auto) Urine Creatinine Urine Total Protein Crossmatch 08/19/18 08/19/18 05:16 05:40 WBC RBC Hgb Hct MCHC RDW [place] # Seg Neutrophils % Lymphocytes % (Manual) Seg Neutrophils # Lymphocytes # (Manual) PT INR APTT D-Dimer Heparin Anti-Xa Level POC ABG pH POC ABG pCO2 POC ABG pO2 Sodium 152 H D Potassium Chloride 118.7 H Carbon Dioxide BUN 38 H Creatinine Glucose 220 H POC Glucose 227 H Lactic Acid Calcium 8.1 L D Magnesium AST Alkaline Phosphatase Total Creatine Kinase CK-MB (CK-2) Troponin T C-Reactive Protein Total Protein Albumin Cholesterol LDL Cholesterol Direct HDL Cholesterol Urine WBC (Auto) Urine Creatinine Urine Total Protein Crossmatch Chest x-ray: image reviewed Allied health notes reviewed: nursing
--- NOTE | 2018-08-19 11:24 | Progress Note ---
Assessment and Plan Assessment and plan: Patient is a 77 yo man from [facility] with a history of respiratory failure, CVA with tracheostomy and Gtube who presented to [facility] ED following cardiac arrest after being found unresponsive at the custodial. Time down is unknown per records. The patient is on the vent and unresponsive, all history is obtained from the chart. Patient had multiple episodes of arrest/pulselessness. He has been on the vent since then without any improvement. Per ER notes the patient was bagged via tracheostomy which continued to have low tidal volumes and so the patient with orally intubated after which tidal volumes improved. Cardiopulmonary arrest x 3, I do not know the cause of the Cardiac arrest but it appears that he has suffered irreversible brain damage prior to hospitalization: supportive care, CCM and Neurology following. Acute on chronic respiratory failure on mechanical ventilation >96 hours: Trach has been removed patient is orally intubated, continue ventilator management per pulmonology Right pneumothorax: Status post chest tube, mgt per pulmonology Anoxic brain injury and status epilepticus, Patient was noted to be having seizures, he received Ativan and Keppra, neurology consult appreciated, poor prognosis, poor likelihood of recovery, suspect brain , fup brain flow scan Hypernatremia/free water deficits, Continue free water via G-tube, sp hypotonic IV solution Acute kidney injury likely due to ATN: Nephrology consult, continue IV fluid, avoid renal toxic agents Acute Likely a type II IA, Elevated troponin unit after patient has had cardiac arrest 3, expected outcome, cardiology consult appreciated, continue heparin drip, aspirin and statin, Patient would have to clinically improved undergo any coronary risk Shock, likely central in origin cont pressors as needed Severe malnutrition Dietitian consult, continue tube feedings UTI/sepsis Continue antibiotics, follow-up urine cultures Type 2 dm with persistent hyperglycemia cont insulins Anemia sp transfusion Urinary retention continue douglass, do not remove DVT prophylaxis; patient is fully anticoagulated on heparin drip Awaiting NM brain flow scan==>reduced blood flow Next step is replace Trach and try to wean off vent. CCT 33 minutes History Interval history: Patient was seen and examined. Follow-up on current diagnosis of respiratory failure. No overnight events reported to me. Patient intubated, not sedated. Imaging, nursing note, chart, labs and old chart reviewed. Hospitalist Physical - Physical exam Narrative exam: Gen: ill appearing, intubated not sedated, comatose HEENT: NCAT, pupil pinpoint and nonreactive Neck: supple, no adenopathy, no thyromegaly, no JVD CVS/Heart: Regular bradycardia, normal S1S2, pulses present bilaterally Chest/Lungs: diminished bs bilateral, Symmetrical chest expansion, good air entry bilaterally GI/Abdomen: soft, PEG in place, +bowel sounds, Extermity/Skin: no obvious rash MSK: unresponsive Neuro: unresponsive Psych: unresponsive - Constitutional Vitals: Temp Pulse Resp BP Pulse Ox 99.0 F 54 L 18 133/51 100 08/19/18 04:00 08/19/18 11:10 08/19/18 11:10 08/19/18 11:10 08/19/18 11:10 General appearance: Present: other (twitching, nonresponsive, intubated) Results - Labs CBC & Chem 7: 08/19/18 05:16 08/19/18 05:16 Labs: Laboratory Last Values WBC 7.7 K/mm3 (4.5-11.0) 08/19/18 05:16 RBC 2.62 M/mm3 (3.65-5.03) L 08/19/18 05:16 Hgb 7.5 gm/dl (11.8-15.2) L 08/19/18 05:16 Hct 23.1 % (35.5-45.6) L 08/19/18 05:16 MCV 88 fl (84-94) 08/19/18 05:16 MCH 29 pg (28-32) 08/19/18 05:16 MCHC 32 % (32-34) 08/19/18 05:16 RDW 18.1 % (13.2-15.2) H 08/19/18 05:16 Plt Count 277 K/mm3 (140-440) 08/19/18 05:16 Lymph % (Auto) 13.6 % (13.4-35.0) 08/14/18 04:03 [place] % (Auto) 6.4 % (0.0-7.3) 08/14/18 04:03 Eos % (Auto) 0.1 % (0.0-4.3) 08/14/18 04:03 Baso % (Auto) 0.5 % (0.0-1.8) 08/14/18 04:03 Lymph # 2.5 K/mm3 (1.2-5.4) 08/14/18 04:03 [place] # 1.2 K/mm3 (0.0-0.8) H 08/14/18 04:03 Eos # 0.0 K/mm3 (0.0-0.4) 08/14/18 04:03 Baso # 0.1 K/mm3 (0.0-0.1) 08/14/18 04:03 Add Manual Diff Complete 08/12/18 21:44 Total Counted 100 08/12/18 21:44 Seg Neutrophils % 79.4 % (40.0-70.0) H 08/14/18 04:03 Seg Neuts % (Manual) 44.0 % (40.0-70.0) 08/12/18 21:44 0 % 08/12/18 21:44 48.0 % (13.4-35.0) H 08/12/18 21:44 Reactive Lymphs % (Man) 0 % 08/12/18 21:44 2.0 % (0.0-7.3) 08/12/18 21:44 1.0 % (0.0-4.3) 08/12/18 21:44 0 % (0.0-1.8) 08/12/18 21:44 1.0 % 08/12/18 21:44 4.0 % 08/12/18 21:44 0 % 08/12/18 21:44 0 % 08/12/18 21:44 Nucleated RBC % Not Reportable 08/12/18 21:44 Seg Neutrophils # 14.5 K/mm3 (1.8-7.7) H 08/14/18 04:03 Seg Neutrophils # Man 6.8 K/mm3 (1.8-7.7) 08/12/18 21:44 Band Neutrophils # 0.0 K/mm3 08/12/18 21:44 7.4 K/mm3 (1.2-5.4) H 08/12/18 21:44 Abs React Lymphs (Man) 0.0 K/mm3 08/12/18 21:44 0.3 K/mm3 (0.0-0.8) 08/12/18 21:44 0.2 K/mm3 (0.0-0.4) 08/12/18 21:44 0.0 K/mm3 (0.0-0.1) 08/12/18 21:44 0.2 K/mm3 08/12/18 21:44 0.6 K/mm3 08/12/18 21:44 0.0 K/mm3 08/12/18 21:44 Blast Cells # 0.0 K/mm3 08/12/18 21:44 WBC Morphology Not Reportable 08/12/18 21:44 Hypersegmented Neuts Not Reportable 08/12/18 21:44 Hyposegmented Neuts Not Reportable 08/12/18 21:44 Hypogranular Neuts Not Reportable 08/12/18 21:44 Not Reportable 08/12/18 21:44 Not Reportable 08/12/18 21:44 Not Reportable 08/12/18 21:44 Not Reportable 08/12/18 21:44 Not Reportable 08/12/18 21:44 Not Reportable 08/12/18 21:44 Consistent w auto 08/12/18 21:44 Not Reportable 08/12/18 21:44 Plt Clumps, EDTA Not Reportable 08/12/18 21:44 Not Reportable 08/12/18 21:44 Not Reportable 08/12/18 21:44 Not Reportable 08/12/18 21:44 Plt Morphology Comment Not Reportable 08/12/18 21:44 RBC Morphology Not Reportable 08/12/18 21:44 Dimorphic RBCs Not Reportable 08/12/18 21:44 Not Reportable 08/12/18 21:44 Not Reportable 08/12/18 21:44 Not Reportable 08/12/18 21:44 Few 08/12/18 21:44 Not Reportable 08/12/18 21:44 Not Reportable 08/12/18 21:44 Not Reportable 08/12/18 21:44 Not Reportable 08/12/18 21:44 Not Reportable 08/12/18 21:44 Not Reportable 08/12/18 21:44 Not Reportable 08/12/18 21:44 Few 08/12/18 21:44 Not Reportable 08/12/18 21:44 Not Reportable 08/12/18 21:44 Not Reportable 08/12/18 21:44 Not Reportable 08/12/18 21:44 Not Reportable 08/12/18 21:44 Not Reportable 08/12/18 21:44 Few 08/12/18 21:44 Acanthocytes (Spur) Not Reportable 08/12/18 21:44 Rouleaux Not Reportable 08/12/18 21:44 Not Reportable 08/12/18 21:44 Not Reportable 08/12/18 21:44 Not Reportable 08/12/18 21:44 Not Reportable 08/12/18 21:44 Hem Pathologist Commnt No 08/12/18 21:44 PT 16.5 Sec. (12.2-14.9) H 08/13/18 00:47 INR 1.25 (0.87-1.13) H 08/13/18 00:47 APTT 79.0 Sec. (24.2-36.6) H* 08/15/18 06:35 2742.50 ng/mlDDU (0-234) H 08/13/18 20:07 Heparin Anti-Xa Level 0.26 U.I./ml (0.3-0.7) L 08/16/18 20:01 POC ABG pH 7.404 (7.35-7.45) 08/19/18 04:54 POC ABG pCO2 37.8 (35-45) 08/19/18 04:54 POC ABG pO2 58 (80-105) L 08/19/18 04:54 POC ABG HCO3 23.6 (22-26 mml/L) 08/19/18 04:54 POC ABG Total CO2 25 (23-27mmol/L) 08/19/18 04:54 POC ABG O2 Sat 90 08/19/18 04:54 POC ABG Base Excess -1 ((-2) - (+3)mmol/L) 08/19/18 04:54 28 % 08/19/18 04:54 Sodium 152 mmol/L (137-145) H D 08/19/18 05:16 Potassium 3.6 mmol/L (3.6-5.0) 08/19/18 05:16 Chloride 118.7 mmol/L (98-107) H 08/19/18 05:16 Carbon Dioxide 25 mmol/L (22-30) 08/19/18 05:16 12 mmol/L 08/19/18 05:16 BUN 38 mg/dL (9-20) H 08/19/18 05:16 1.1 mg/dL (0.8-1.5) 08/19/18 05:16 Estimated GFR > 60 ml/min 08/19/18 05:16 35 % 08/19/18 05:16 Glucose 220 mg/dL (75-100) H 08/19/18 05:16 POC Glucose 227 (70-105) H 08/19/18 05:40 Lactic Acid 2.80 mmol/L (0.7-2.0) H* 08/13/18 12:53 Calcium 8.1 mg/dL (8.4-10.2) L D 08/19/18 05:16 Phosphorus 3.90 mg/dL (2.5-4.5) 08/15/18 04:05 Magnesium 2.20 mg/dL (1.7-2.3) 08/15/18 04:05 0.30 mg/dL (0.1-1.2) 08/14/18 04:03 AST 50 units/L (5-40) H 08/14/18 04:03 ALT 55 units/L (7-56) 08/14/18 04:03 219 units/L (35-129) H 08/14/18 04:03 309 units/L (55-170) H 08/13/18 10:10 CK-MB (CK-2) 4.1 ng/mL (0.0-4.0) H 08/13/18 10:10 CK-MB (CK-2) Rel Index 1.3 (0-4) 08/13/18 10:10 0.409 ng/mL (0.00-0.029) H* 08/14/18 04:03 16.90 mg/dL (0.00-1.30) H 08/13/18 12:53 6.2 g/dL (6.3-8.2) L 08/14/18 04:03 1.9 g/dL (3.9-5) L 08/14/18 04:03 0.4 % 08/14/18 04:03 Triglycerides 62 mg/dL (2-149) 08/13/18 00:32 Cholesterol 46 mg/dL (50-199) L 08/13/18 00:32 17 mg/dL (50-130) L 08/13/18 00:32 6 mg/dL (40-59) L 08/13/18 00:32 7.66 % 08/13/18 00:32 Yellow (Yellow) 08/13/18 00:50 Cloudy (Clear) 08/13/18 00:50 7.0 (5.0-7.0) 08/13/18 00:50 Ur Specific [place] 1.025 (1.003-1.030) 08/13/18 00:50 100 mg/dl mg/dL (Negative) 08/13/18 00:50 50 mg/dL (Negative) 08/13/18 00:50 Tr mg/dL (Negative) 08/13/18 00:50 Mod (Negative) 08/13/18 00:50 Neg (Negative) 08/13/18 00:50 Neg (Negative) 08/13/18 00:50 < 2.0 mg/dL (<2.0) 08/13/18 00:50 Ur Leukocyte Esterase Mod (Negative) 08/13/18 00:50 > 182.0 /HPF (0.0-6.0) H 08/13/18 00:50 > 182.0 /HPF (0.0-6.0) 08/13/18 00:50 2+ /HPF (Negative) 08/13/18 00:50 3+ /HPF 08/13/18 00:50 None seen (None Seen) 08/14/18 17:20 60.9 mg/dL (0.1-20.0) H 08/14/18 17:20 32 mmol/L 08/14/18 17:20 64 mg/dL (5-11.8) H 08/14/18 17:20 Presumptive negative 08/12/18 21:30 Presumptive negative 08/12/18 21:30 Ur Barbiturates Screen Presumptive negative 08/12/18 21:30 Ur Phencyclidine Scrn Presumptive negative 08/12/18 21:30 Ur Amphetamines Screen Presumptive negative 08/12/18 21:30 U Benzodiazepines Scrn Presumptive negative 08/12/18 21:30 Presumptive negative 08/12/18 21:30 U Marijuana (THC) Screen Presumptive negative 08/12/18 21:30 Disclamer 08/12/18 21:30 Blood Type O POSITIVE 08/15/18 15:31 Antibody Screen Negative 08/15/18 15:31 Crossmatch See Detail 08/15/18 15:31 Active Medications - Current Medications Current Medications: Generic Name Dose Route Start Last Admin Trade Name Freq PRN Reason Stop Dose Admin Acetaminophen 650 mg 08/13/18 11:40 08/13/18 16:09 Tylenol PO 650 mg Q6H PRN Administration Fever >101 Lipase/Protease/Amylase 1 each 08/13/18 15:[address] 10,500 Unit FEEDTUBE PRN PRN For Clogged Feeding Tube Aspirin 325 mg 08/17/18 10:00 08/19/18 10:32 Aspirin PO 325 mg QDAY LENCHO Administration Atorvastatin Calcium 40 mg 08/14/18 22:00 08/18/18 21:39 Lipitor PO 40 mg QHS LENCHO Administration Dextrose 50 ml 08/13/18 01:34 D50w (25gm) Syringe IV PRN PRN Hypoglycemia Enoxaparin Sodium 40 mg 08/17/18 22:00 08/18/18 21:39 Lovenox SUB-Q 40 mg QDAY@2200 LENCHO Administration Famotidine 20 mg 08/19/18 10:00 08/19/18 10:38 Pepcid PO 20 mg BID LENCHO Administration Hydrophilic Ointment 1 applic 08/13/18 12:21 Vaseline Lip Therapy TP Q2HR PRN Dry Lips Fentanyl Citrate 2,000 mcg in 100 mls @ 3.629 mls/hr 08/14/18 13:00 Fentanyl Drip Premix IV TITR LENCHO Protocol 1 MCG/KG/HR Insulin Glargine 30 units 08/19/18 10:00 08/19/18 10:32 Lantus SUB-Q 30 units DAILY LENCHO Administration Insulin Human Lispro 0 unit 08/13/18 06:00 08/18/18 23:46 Humalog SUB-Q 3 unit Q6HR LENCHO Administration Protocol Levetiracetam 1,000 mg 08/13/18 15:00 08/19/18 10:32 Keppra PO 1,000 mg BID LENCHO Administration Multi-Ingred Cream/Lotion/Oil/Oint 1 applic 08/13/18 12:21 08/17/18 00:41 Artificial Tears Ophth Oint OU 1 applic Q4HR PRN Administration Dry Eye(s) Ondansetron HCl 4 mg 08/13/18 01:34 Zofran IV Q8H PRN Nausea And Vomiting Simple Syrup 15 ml 08/13/18 15:55 Simple Syrup FEEDTUBE PRN PRN Hypoglycemia Simple Syrup 30 ml 08/13/18 15:55 Simple Syrup FEEDTUBE PRN PRN Hypoglycemia Sodium Bicarbonate 325 mg 08/13/18 15:55 Sodium Bicarbonate FEEDTUBE PRN PRN For Clogged Feeding Tube Sodium Chloride 10 ml 08/13/18 10:00 08/18/18 09:39 Sodium Chloride Flush Syringe 10 Ml IV 10 ml BID LENCHO Administration Sodium Chloride 10 ml 08/13/18 01:34 Sodium Chloride Flush Syringe 10 Ml IV PRN PRN LINE FLUSH Nutrition/Malnutrition Assess - Dietary Evaluation Nutrition/Malnutrition Findings: Nutrition Notes Start: 08/13/18 15 :41 Freq: Status: Active Protocol: Document 08/17/18 15:02 RM (Rec: 08/17/18 15:08 [id number]) Nutrition Notes Initial or Follow up Reassessment Current Diagnosis Acute Kidney Injury,Diabetes Other Pertinent Diagnosis UTI, Hx CVA, PEG, Sacral PU, Multiple PU, Anoxic brain injury,R pneumothorax Current Diet Vital 1.2 at 60 ml/hr Labs/Tests Na 141 Pertinent Medications Reviewed Height 5 ft 8 in Weight 72.575 kg [place] Body Weight (kg) 70.00 BMI 24.3 Subjective/Other Information Observed Vital 1.2 infusing at 60 ml/hr. Per nurse pt is tolerating TF. Percent of energy/protein needs met: 100%/100% Burn Absent Trauma Absent #1 Nutrition Diagnosis Inadequate oral intake Diagnosis Progress(for reassessment Continues documentation) Is patient on ventilator? Yes Is Patient Ambulatory and/or Out of Bed No REE-([facility]-confined to bed) [phone] Calculation Used for Recommendations [facility] Additional Notes Protein Needs: 87-145g (1.2-2g /kg) Fluid Needs: 1 ml/kcal Nutrition Intervention Nutrition Support: Vital 1.2 at 60 ml/hr. Water flush of 100 mls q 4 hrs . Kcal 1,728 Protein (gm) 108 Fiber (gm) 7 Goal #1 Continue to meet at least 80% of calorie and protein needs via TF Anticipated Discharge Needs: TF Follow-Up By: 08/25/18 Additional Comments Follow for TF tolerance
[2018-08-19] MEDS: HumaLOG SUB-Q SCH ×3 (12:19→18:39)
--- NOTE | 2018-08-19 13:34 | Progress Note ---
Assessment and Plan Pt presented s/p multiple cardiac arrests with prologned down time - per neurology, pt will likely not recover. Pt's initial ECG was suggestive of ischemia/infarction, repeat ECG shows resolution of ST changes, Ian elevated. S/p >48Hr heparin infusion. Cont ASA and statin, consider addition of BB if BPs permit.Will continue with conservative cardiac management at this time given overall poor prognosis. Will follow on as needed basis. The patient has been seen in conjunction with Dr. Pena who agrees with the assessment and plan of care. - Patient Problems (1) Cardiac arrest Current Visit: Yes Status: Acute (2) ACS (acute coronary syndrome) Current Visit: Yes Status: Acute (3) Seizure disorder Current Visit: Yes Status: Acute (4) Altered mental state Current Visit: Yes Status: Acute (5) Acute and chronic respiratory failure Current Visit: Yes Status: Acute Qualifiers: Respiratory failure complication: hypoxia Qualified Code(s): J96.21 - Acute and chronic respiratory failure with hypoxia (6) Hypotension Current Visit: Yes Status: Acute (7) Pneumothorax Current Visit: Yes Status: Acute (8) History of CVA (cerebrovascular accident) Current Visit: Yes Status: Chronic (9) Sinus tachycardia Current Visit: Yes Status: Acute (10) Leukocytosis Current Visit: Yes Status: Acute (11) Fever Current Visit: Yes Status: Acute (12) Anemia Current Visit: Yes Status: Acute (13) MAYLIN (acute kidney injury) Current Visit: Yes Status: Acute (14) Hypernatremia Current Visit: Yes Status: Acute (15) History of tracheostomy Current Visit: Yes Status: Chronic Subjective Date of service: 08/19/18 Principal diagnosis: Acute hypoxemic resp failure; S/P cardiac arrest; Seizures; DM II; H/O CVA Interval history: pt remains intubated, sedated, nonresponsive, no family at bedside. Objective Last Vital Signs Temp 97.4 F L 08/19/18 12:00 Pulse 54 L 08/19/18 12:00 Resp 18 08/19/18 11:10 BP 131/51 08/19/18 12:00 Pulse Ox 100 08/19/18 12:00 - Physical Examination General: Other (intubated, sedated, nonresponsive) Neck: Positive: trachea midline Cardiac: Positive: Reg Rate and Rhythm, S1/S2 Lungs: Positive: Decreased Breath Sounds, Ventilated Respirations Neuro: Positive: Other (intubated, sedated, nonresponsive) Abdomen: Positive: Unremarkable Extremities: Absent: edema - Labs and Meds CBC 08/19/18 Range/Units 05:16 WBC 7.7 (4.5-11.0) K/mm3 RBC 2.62 L (3.65-5.03) M/mm3 Hgb 7.5 L (11.8-15.2) gm/dl Hct 23.1 L (35.5-45.6) % Plt Count 277 (140-440) K/mm3 Comprehensive Metabolic Panel 08/19/18 Range/Units 05:16 Sodium 152 H D (137-145) mmol/L Potassium 3.6 (3.6-5.0) mmol/L Chloride 118.7 H (98-107) mmol/L Carbon Dioxide 25 (22-30) mmol/L BUN 38 H (9-20) mg/dL Creatinine 1.1 (0.8-1.5) mg/dL Glucose 220 H (75-100) mg/dL Calcium 8.1 L D (8.4-10.2) mg/dL - Imaging and Cardiology EKG: report reviewed, image reviewed Echo: report reviewed (07/2018: TDS, EF 55-60%. GLORIA done 05/12/2018 showed EF 60- 65%, no thromcus, negative bubble study, mild TR, mild MR. TTE done 05/08/2018 showed EF 60%, mild LVH, grade 1 diastolic dysfunction, negative bubble study. ) - EKG Sinus rhythms and dysrhythmias: sinus tachycardia Repolarization changes or abnormalities: ST or T wave suggestive of ischemia - Allied health notes Allied health notes reviewed: nursing
[2018-08-19] MEDS: LOVENOX SUB-Q SCH (22:11)
[2018-08-20] MEDS: HumaLOG SUB-Q SCH ×4 (00:38→18:20)
--- NOTE | 2018-08-20 03:08 | XRay Report ---
PROCEDURE: XR CHEST 1V AP TECHNIQUE: Chest radiograph single view. HISTORY: follow up respiratory failure COMPARISONS: August 19, 2018 . FINDINGS: Heart: Normal. Mediastinum/Vessels: Normal. Lungs/Pleural space: Normal. Bony thorax: No acute osseous abnormality. Life support devices: None. IMPRESSION: No acute cardiopulmonary abnormality. This document is electronically signed by Anabell Barillas DO., Aug 20 2018 03:07:22 AM ET
[2018-08-20 06:10] LABS: Hematocrit 22.9 % (35.5-45.6); Hemoglobin 7.5 gm/dl (11.8-15.2); Mean Corpuscular HGB Conc 33 % (32-34); Mean Corpuscular Volume 88 fl (84-94); Platelet Count 278 K/mm3 (140-440); Red Cell Distribution Width 18.4 % (13.2-15.2)
[2018-08-20 06:23] LABS: BUN/Creatinine Ratio 42; Blood Urea Nitrogen 38 mg/dL (9-20); Calcium 7.9 mg/dL (8.4-10.2); Hemolysis Index 0
--- NOTE | 2018-08-20 07:11 | Progress Note ---
Assessment and Plan Assessment and plan: Patient is a 77 yo man from [facility] with a history of respiratory failure, CVA with tracheostomy and Gtube who presented to [facility] ED following cardiac arrest after being found unresponsive at the long term. Time down is unknown per records. The patient is on the vent and unresponsive, all history is obtained from the chart. Patient had multiple episodes of arrest/pulselessness. He has been on the vent since then without any improvement. Per ER notes the patient was bagged via tracheostomy which continued to have low tidal volumes and so the patient with orally intubated after which tidal volumes improved. Cardiopulmonary arrest x 3: Most likely related to NSTEMI (see Cardiology's note) and he has suffered irreversible brain damage: supportive care, CCM and Neurology following. Acute on chronic respiratory failure on mechanical ventilation >96 hours: Trach has been removed when patient orally intubated, continue ventilator management per pulmonology Right pneumothorax, appears to be resolved: Status post chest tube, mgt per pulmonology Anoxic brain injury and status epilepticus poa: Patient was noted to be having seizures, he received Ativan and Keppra, neurology consult appreciated, poor prognosis, poor likelihood of recovery, Hypernatremia/free water deficits, Continue free water via G-tube, sp hypotonic IV solution Acute kidney injury likely due to ATN, poa: Nephrology consult, continue IV fluid, avoid renal toxic agents NSTEMI: treated with IV heparin, asa, statin, no bblocker due to bradycardia, hypotension, Cardiology is following Severe malnutrition: Dietitian consult, continue tube feedings UTI/sepsis: Continue antibiotics, follow-up urine cultures-->no growth x 48 hours Type 2 dm with persistent hyperglycemia: cont insulins and adjust according, on tube feedings Anemia: sp transfusion Urinary retention: continue douglass, do not remove DVT prophylaxis; patient is fully anticoagulated on heparin drip Awaiting NM brain flow scan==>reduced blood flow Next step is replace Trach and try to wean off vent. CCT 31 minutes History Interval history: Patient was seen and examined. Follow-up on current diagnosis of respiratory failure. No overnight events reported to me. Patient intubated, not sedated. Imaging, nursing note, chart, labs and old chart reviewed. Hospitalist Physical - Physical exam Narrative exam: Gen: ill appearing, intubated not sedated, comatose HEENT: NCAT, pupil pinpoint and nonreactive Neck: supple, no adenopathy, no thyromegaly, no JVD CVS/Heart: Regular, normal S1S2, pulses present bilaterally Chest/Lungs: diminished bs bilateral, Symmetrical chest expansion, good air entry bilaterally GI/Abdomen: soft, PEG in place, +bowel sounds, Extermity/Skin: no obvious rash MSK: unresponsive Neuro: unresponsive Psych: unresponsive - Constitutional Vitals: Temp Pulse Resp BP Pulse Ox 98.9 F 63 15 138/50 100 08/20/18 04:00 08/20/18 06:00 08/20/18 06:00 08/20/18 06:00 08/20/18 06:00 General appearance: Present: other (twitching, nonresponsive, intubated) Results - Labs CBC & Chem 7: 08/20/18 05:37 08/20/18 05:37 Labs: Laboratory Last Values WBC 6.7 K/mm3 (4.5-11.0) 08/20/18 05:37 RBC 2.60 M/mm3 (3.65-5.03) L 08/20/18 05:37 Hgb 7.5 gm/dl (11.8-15.2) L 08/20/18 05:37 Hct 22.9 % (35.5-45.6) L 08/20/18 05:37 MCV 88 fl (84-94) 08/20/18 05:37 MCH 29 pg (28-32) 08/20/18 05:37 MCHC 33 % (32-34) 08/20/18 05:37 RDW 18.4 % (13.2-15.2) H 08/20/18 05:37 Plt Count 278 K/mm3 (140-440) 08/20/18 05:37 Lymph % (Auto) 13.6 % (13.4-35.0) 08/14/18 04:03 [place] % (Auto) 6.4 % (0.0-7.3) 08/14/18 04:03 Eos % (Auto) 0.1 % (0.0-4.3) 08/14/18 04:03 Baso % (Auto) 0.5 % (0.0-1.8) 08/14/18 04:03 Lymph # 2.5 K/mm3 (1.2-5.4) 08/14/18 04:03 [place] # 1.2 K/mm3 (0.0-0.8) H 08/14/18 04:03 Eos # 0.0 K/mm3 (0.0-0.4) 08/14/18 04:03 Baso # 0.1 K/mm3 (0.0-0.1) 08/14/18 04:03 Add Manual Diff Complete 08/12/18 21:44 Total Counted 100 08/12/18 21:44 Seg Neutrophils % 79.4 % (40.0-70.0) H 08/14/18 04:03 Seg Neuts % (Manual) 44.0 % (40.0-70.0) 08/12/18 21:44 0 % 08/12/18 21:44 48.0 % (13.4-35.0) H 08/12/18 21:44 Reactive Lymphs % (Man) 0 % 08/12/18 21:44 2.0 % (0.0-7.3) 08/12/18 21:44 1.0 % (0.0-4.3) 08/12/18 21:44 0 % (0.0-1.8) 08/12/18 21:44 1.0 % 08/12/18 21:44 4.0 % 08/12/18 21:44 0 % 08/12/18 21:44 0 % 08/12/18 21:44 Nucleated RBC % Not Reportable 08/12/18 21:44 Seg Neutrophils # 14.5 K/mm3 (1.8-7.7) H 08/14/18 04:03 Seg Neutrophils # Man 6.8 K/mm3 (1.8-7.7) 08/12/18 21:44 Band Neutrophils # 0.0 K/mm3 08/12/18 21:44 7.4 K/mm3 (1.2-5.4) H 08/12/18 21:44 Abs React Lymphs (Man) 0.0 K/mm3 08/12/18 21:44 0.3 K/mm3 (0.0-0.8) 08/12/18 21:44 0.2 K/mm3 (0.0-0.4) 08/12/18 21:44 0.0 K/mm3 (0.0-0.1) 08/12/18 21:44 0.2 K/mm3 08/12/18 21:44 0.6 K/mm3 08/12/18 21:44 0.0 K/mm3 08/12/18 21:44 Blast Cells # 0.0 K/mm3 08/12/18 21:44 WBC Morphology Not Reportable 08/12/18 21:44 Hypersegmented Neuts Not Reportable 08/12/18 21:44 Hyposegmented Neuts Not Reportable 08/12/18 21:44 Hypogranular Neuts Not Reportable 08/12/18 21:44 Not Reportable 08/12/18 21:44 Not Reportable 08/12/18 21:44 Not Reportable 08/12/18 21:44 Not Reportable 08/12/18 21:44 Not Reportable 08/12/18 21:44 Not Reportable 08/12/18 21:44 Consistent w auto 08/12/18 21:44 Not Reportable 08/12/18 21:44 Plt Clumps, EDTA Not Reportable 08/12/18 21:44 Not Reportable 08/12/18 21:44 Not Reportable 08/12/18 21:44 Not Reportable 08/12/18 21:44 Plt Morphology Comment Not Reportable 08/12/18 21:44 RBC Morphology Not Reportable 08/12/18 21:44 Dimorphic RBCs Not Reportable 08/12/18 21:44 Not Reportable 08/12/18 21:44 Not Reportable 08/12/18 21:44 Not Reportable 08/12/18 21:44 Few 08/12/18 21:44 Not Reportable 08/12/18 21:44 Not Reportable 08/12/18 21:44 Not Reportable 08/12/18 21:44 Not Reportable 08/12/18 21:44 Not Reportable 08/12/18 21:44 Not Reportable 08/12/18 21:44 Not Reportable 08/12/18 21:44 Few 08/12/18 21:44 Not Reportable 08/12/18 21:44 Not Reportable 08/12/18 21:44 Not Reportable 08/12/18 21:44 Not Reportable 08/12/18 21:44 Not Reportable 08/12/18 21:44 Not Reportable 08/12/18 21:44 Few 08/12/18 21:44 Acanthocytes (Spur) Not Reportable 08/12/18 21:44 Rouleaux Not Reportable 08/12/18 21:44 Not Reportable 08/12/18 21:44 Not Reportable 08/12/18 21:44 Not Reportable 08/12/18 21:44 Not Reportable 08/12/18 21:44 Hem Pathologist Commnt No 08/12/18 21:44 PT 16.5 Sec. (12.2-14.9) H 08/13/18 00:47 INR 1.25 (0.87-1.13) H 08/13/18 00:47 APTT 79.0 Sec. (24.2-36.6) H* 08/15/18 06:35 2742.50 ng/mlDDU (0-234) H 08/13/18 20:07 Heparin Anti-Xa Level 0.26 U.I./ml (0.3-0.7) L 08/16/18 20:01 POC ABG pH 7.423 (7.35-7.45) 08/20/18 04:38 POC ABG pCO2 35.8 (35-45) 08/20/18 04:38 POC ABG pO2 140 (80-105) H 08/20/18 04:38 POC ABG HCO3 23.4 (22-26 mml/L) 08/20/18 04:38 POC ABG Total CO2 24 (23-27mmol/L) 08/20/18 04:38 POC ABG O2 Sat 99 08/20/18 04:38 POC ABG Base Excess -1 ((-2) - (+3)mmol/L) 08/20/18 04:38 28 % 08/20/18 04:38 Sodium 150 mmol/L (137-145) H 08/20/18 05:37 Potassium 3.8 mmol/L (3.6-5.0) 08/20/18 05:37 Chloride 115.6 mmol/L (98-107) H 08/20/18 05:37 Carbon Dioxide 26 mmol/L (22-30) 08/20/18 05:37 12 mmol/L 08/20/18 05:37 BUN 38 mg/dL (9-20) H 08/20/18 05:37 0.9 mg/dL (0.8-1.5) 08/20/18 05:37 Estimated GFR > 60 ml/min 08/20/18 05:37 42 % 08/20/18 05:37 Glucose 276 mg/dL (75-100) H 08/20/18 05:37 POC Glucose 266 (70-105) H 08/20/18 05:31 Lactic Acid 2.80 mmol/L (0.7-2.0) H* 08/13/18 12:53 Calcium 7.9 mg/dL (8.4-10.2) L 08/20/18 05:37 Phosphorus 3.90 mg/dL (2.5-4.5) 08/15/18 04:05 Magnesium 2.20 mg/dL (1.7-2.3) 08/15/18 04:05 0.30 mg/dL (0.1-1.2) 08/14/18 04:03 AST 50 units/L (5-40) H 08/14/18 04:03 ALT 55 units/L (7-56) 08/14/18 04:03 219 units/L (35-129) H 08/14/18 04:03 309 units/L (55-170) H 08/13/18 10:10 CK-MB (CK-2) 4.1 ng/mL (0.0-4.0) H 08/13/18 10:10 CK-MB (CK-2) Rel Index 1.3 (0-4) 08/13/18 10:10 0.409 ng/mL (0.00-0.029) H* 08/14/18 04:03 16.90 mg/dL (0.00-1.30) H 08/13/18 12:53 6.2 g/dL (6.3-8.2) L 08/14/18 04:03 1.9 g/dL (3.9-5) L 08/14/18 04:03 0.4 % 08/14/18 04:03 Triglycerides 62 mg/dL (2-149) 08/13/18 00:32 Cholesterol 46 mg/dL (50-199) L 08/13/18 00:32 17 mg/dL (50-130) L 08/13/18 00:32 6 mg/dL (40-59) L 08/13/18 00:32 7.66 % 08/13/18 00:32 Yellow (Yellow) 08/13/18 00:50 Cloudy (Clear) 08/13/18 00:50 7.0 (5.0-7.0) 08/13/18 00:50 Ur Specific [place] 1.025 (1.003-1.030) 08/13/18 00:50 100 mg/dl mg/dL (Negative) 08/13/18 00:50 50 mg/dL (Negative) 08/13/18 00:50 Tr mg/dL (Negative) 08/13/18 00:50 Mod (Negative) 08/13/18 00:50 Neg (Negative) 08/13/18 00:50 Neg (Negative) 08/13/18 00:50 < 2.0 mg/dL (<2.0) 08/13/18 00:50 Ur Leukocyte Esterase Mod (Negative) 08/13/18 00:50 > 182.0 /HPF (0.0-6.0) H 08/13/18 00:50 > 182.0 /HPF (0.0-6.0) 08/13/18 00:50 2+ /HPF (Negative) 08/13/18 00:50 3+ /HPF 08/13/18 00:50 None seen (None Seen) 08/14/18 17:20 60.9 mg/dL (0.1-20.0) H 08/14/18 17:20 32 mmol/L 08/14/18 17:20 64 mg/dL (5-11.8) H 08/14/18 17:20 Presumptive negative 08/12/18 21:30 Presumptive negative 08/12/18 21:30 Ur Barbiturates Screen Presumptive negative 08/12/18 21:30 Ur Phencyclidine Scrn Presumptive negative 08/12/18 21:30 Ur Amphetamines Screen Presumptive negative 08/12/18 21:30 U Benzodiazepines Scrn Presumptive negative 08/12/18 21:30 Presumptive negative 08/12/18 21:30 U Marijuana (THC) Screen Presumptive negative 08/12/18 21:30 Disclamer 08/12/18 21:30 Blood Type O POSITIVE 08/15/18 15:31 Antibody Screen Negative 08/15/18 15:31 Crossmatch See Detail 08/15/18 15:31 Active Medications - Current Medications Current Medications: Generic Name Dose Route Start Last Admin Trade Name Freq PRN Reason Stop Dose Admin Acetaminophen 650 mg 08/13/18 11:40 08/13/18 16:09 Tylenol PO 650 mg Q6H PRN Administration Fever >101 Lipase/Protease/Amylase 1 each 08/13/18 15:55 Pancreaze 10,500 Unit FEEDTUBE PRN PRN For Clogged Feeding Tube Aspirin 325 mg 08/17/18 10:00 08/19/18 10:32 Aspirin PO 325 mg QDAY LENCHO Administration Atorvastatin Calcium 40 mg 08/14/18 22:00 08/19/18 22:10 Lipitor PO 40 mg QHS LENCHO Administration Dextrose 50 ml 08/13/18 01:34 D50w (25gm) Syringe IV PRN PRN Hypoglycemia Enoxaparin Sodium 40 mg 08/17/18 22:00 08/19/18 22:11 Lovenox SUB-Q 40 mg QDAY@2200 LENCHO Administration Famotidine 20 mg 08/19/18 10:00 08/19/18 22:10 Pepcid PO 20 mg BID LENCHO Administration Hydrophilic Ointment 1 applic 08/13/18 12:21 Vaseline Lip Therapy TP Q2HR PRN Dry Lips Fentanyl Citrate 2,000 mcg in 100 mls @ 3.629 mls/hr 08/14/18 13:00 Fentanyl Drip Premix IV TITR LENCHO Protocol 1 MCG/KG/HR Insulin Glargine 30 units 08/19/18 10:00 08/19/18 10:32 Lantus SUB-Q 30 units DAILY LENCHO Administration Insulin Human Lispro 0 unit 08/13/18 06:00 08/20/18 06:12 Humalog SUB-Q 4 unit Q6HR LENCHO Administration Protocol Levetiracetam 1,000 mg 08/13/18 15:00 08/19/18 22:10 Keppra PO 1,000 mg BID LENCHO Administration Multi-Ingred Cream/Lotion/Oil/Oint 1 applic 08/13/18 12:21 08/17/18 00:41 Artificial Tears Ophth Oint OU 1 applic Q4HR PRN Administration Dry Eye(s) Ondansetron HCl 4 mg 05/16/19 01:34 Zofran IV Q8H PRN Nausea And Vomiting Simple Syrup 15 ml 08/13/18 15:55 Simple Syrup FEEDTUBE PRN PRN Hypoglycemia Simple Syrup 30 ml 08/13/18 15:55 Simple Syrup FEEDTUBE PRN PRN Hypoglycemia Sodium Bicarbonate 325 mg 08/13/18 15:55 Sodium Bicarbonate FEEDTUBE PRN PRN For Clogged Feeding Tube Sodium Chloride 10 ml 08/13/18 10:00 08/19/18 22:11 Sodium Chloride Flush Syringe 10 Ml IV 10 ml BID LENCHO Administration Sodium Chloride 10 ml 08/13/18 01:34 Sodium Chloride Flush Syringe 10 Ml IV PRN PRN LINE FLUSH Nutrition/Malnutrition Assess - Dietary Evaluation Nutrition/Malnutrition Findings: Nutrition Notes Start: 08/13/18 15:41 Freq: Status: Active Protocol: Document 08/17/18 15:02 RM (Rec: 08/17/18 15:08 RM [id number]) Nutrition Notes Initial or Follow up Reassessment Current Diagnosis Acute Kidney Injury,Diabetes Other Pertinent Diagnosis UTI, Hx CVA, PEG, Sacral PU, Multiple PU, Anoxic brain injury,R pneumothorax Current Diet Vital 1.2 at 60 ml/hr Labs/Tests Na 141 Pertinent Medications Reviewed Height 5 ft 8 in Weight 72.575 kg [place] Body Weight (kg) 70.00 BMI 24.3 Subjective/Other Information Observed Vital 1.2 infusing at 60 ml/hr. Per nurse pt is tolerating TF. Percent of energy/protein needs met: 100%/100% Burn Absent Trauma Absent #1 Nutrition Diagnosis Inadequate oral intake Diagnosis Progress(for reassessment Continues documentation) Is patient on ventilator? Yes Is Patient Ambulatory and/or Out of Bed No REE-([place]-[facility] [facility]-confined to bed) 3877.131 Calculation [facility] Additional Notes Protein Needs: 87-145g (1.2-2g /kg) Fluid Needs: 1 ml/kcal Nutrition Intervention Nutrition Support: Vital 1.2 at 60 ml/hr. Water flush of 100 mls q 4 hrs . Kcal 1,728 Protein (gm) 108 Fiber (gm) 7 Goal #1 Continue to meet at least 80% of calorie and protein needs via TF Anticipated Discharge Needs: TF Follow-Up By: 08/25/18 Additional Comments Follow for TF tolerance
--- NOTE | 2018-08-20 09:12 | Progress Note ---
Assessment and Plan Acute hypoxemic respiratory failure on chronic on MVS . Status post cardiac arrest. Seizure disorder with breakthrough seizures. History of diabetes. History of cerebrovascular accident. Oropharyngeal dysphagia. History of seizures. - Continue MVS - Lung protective strategies - VAP bundle addressed - SBTs as tolerated -Supportive transfusions, to keep HgB >7g/dL - Continue Keppra for seizures with prn ativan IV for breakthrough - Continue Stress ulcer & VTE prophylaxis - Continue bronchodilators with pulmonary hygiene per RT - Continue to wean supplemental oxygen to keep O2 sats 88-90% - Chronic home medications - Replete electrolytes as indicated - Monitor renal indices closely - Avoid nephrotoxic agents, adjust all medications for CrCL - Strict intake and output monitoring - Continue enteral nutrition as tolerated - Continue accuchecks with glycemic control - Target glucose of 140-180 mg/dL - Maintenance of sleep -wake cycle - Mobility as tolerated by hemodynamics - Influenza and pneumonia vaccination per protocol ....discussed with RT/RN in rounds -Updated his at the bedside -Trachesotomy placement early next week PROGNOSIS: GUARDED -POOR CONDITION: CRITICAL CODE STATUS: FULL CODE The high probability of a clinically significant, sudden or life-threatening deterioration of the [respiratory, neurology, renal] system(s) required my full and direct attention, intervention and personal management. The aggregate critical care time was [31] minutes without overlap. Time includes spent on; [x] Data Review and interpretation [x] Patient assessment and monitoring of vital signs [x] Documentation [x] Medication orders and management Subjective Date of service: 08/20/18 Principal diagnosis: Acute hypoxemic resp failure; S/P cardiac arrest; Seizures; DM II; H/O CVA Interval history: Patient is seen today for: Acute hypoxemic respiratory failure on chronic; Status post cardiac arrest; Seizure disorder with breakthrough seizures; History of diabetes; History of cerebrovascular accident; Oropharyngeal dysphagia; History of seizures. Seen and examined at bedside; 24hour events reviewed; nursing and respiratory care staff consulted; no adverse overnight events reported to me; remains on MVS; AMS is persistent; now tolerating some SBT's; no emesis or overt aspiration; no fevers or chills reported and no seizure activity For trachesotomy Objective Vital Signs - 12hr 08/19/18 08/19/18 08/19/18 21:30 22:00 22:30 Temperature Pulse Rate 51 L 52 L 52 L Pulse Rate [ From Monitor] Respiratory 15 13 14 Rate Blood Pressure 135/50 138/51 142/51 O2 Sat by Pulse 100 100 100 Oximetry 08/19/18 08/19/18 08/19/18 22:54 23:00 23:30 Temperature Pulse Rate 55 L 55 L 56 L Pulse Rate [ From Monitor] Respiratory 16 13 15 Rate Blood Pressure 142/51 137/53 137/54 O2 Sat by Pulse 100 100 100 Oximetry 08/19/18 08/20/18 08/20/18 23:45 00:00 00:30 Temperature 98.8 F Pulse Rate 55 L 56 L 55 L Pulse Rate [ 56 L From Monitor] Respiratory 9 L 14 Rate Blood Pressure 137/54 144/54 136/53 O2 Sat by Pulse 100 100 100 Oximetry 08/20/18 08/20/18 08/20/18 01:00 01:30 02:00 Temperature Pulse Rate 54 L 54 L 57 L Pulse Rate [ From Monitor] Respiratory 10 L 12 16 Rate Blood Pressure 143/52 144/49 141/53 O2 Sat by Pulse 100 100 100 Oximetry 08/20/18 08/20/18 08/20/18 02:30 03:00 03:30 Temperature Pulse Rate 59 L 62 59 L Pulse Rate [ From Monitor] Respiratory 14 14 16 Rate Blood Pressure 146/56 139/50 125/49 O2 Sat by Pulse 100 100 100 Oximetry 08/20/18 08/20/18 08/20/18 04:00 04:30 04:34 Temperature 98.9 F Pulse Rate 60 60 61 Pulse Rate [ 60 From Monitor] Respiratory 13 14 Rate Blood Pressure 132/49 133/51 133/51 O2 Sat by Pulse 98 100 100 Oximetry 08/20/18 08/20/18 08/20/18 05:00 05:30 06:00 Temperature Pulse Rate 61 64 63 Pulse Rate [ From Monitor] Respiratory 16 15 15 Rate Blood Pressure 138/54 138/53 138/50 O2 Sat by Pulse 100 100 100 Oximetry 08/20/18 08/20/18 08/20/18 06:30 07:00 07:30 Temperature Pulse Rate 62 61 60 Pulse Rate [ From Monitor] Respiratory 13 14 14 Rate Blood Pressure 140/52 138/51 142/53 O2 Sat by Pulse 100 100 100 Oximetry 08/20/18 08/20/18 08:00 08:14 Temperature Pulse Rate 63 60 Pulse Rate [ 62 From Monitor] Respiratory 16 Rate Blood Pressure 139/52 139/52 O2 Sat by Pulse 100 100 Oximetry Constitutional: no acute distress, other (Elderly looking AAM, normocephalic resting in bed on MVS) Eyes: non-icteric ENT: oropharynx moist, other (ETT 23-24 cm JOVI) Neck: supple, no lymphadenopathy, no JVD, other (no thyromegaly) Effort: mildly labored Ascultation: Bilateral: diminished breath sounds, rhonchi Percussion: Bilateral: not dull Cardiovascular: regular rate and rhythm, other (S1,S2, no murmurs, gallops or rubs) Gastrointestinal: normoactive bowel sounds, soft, non-tender, non-distended Integumentary: normal Extremities: no cyanosis, pulses normal, no ischemia or petechiae, edema (trace ) Neurologic: unable to assess, other (slight pupillary constriction to light) Psychiatric: other (unable to assess) CBC and BMP: 08/21/18 04:41 08/21/18 04:41 ABG, PT/INR, D-dimer: ABG POC ABG pH 7.423 (7.35-7.45) 08/20/18 04:38 POC ABG pCO2 35.8 (35-45) 08/20/18 04:38 POC ABG pO2 140 (80-105) H 08/20/18 04:38 POC ABG HCO3 23.4 (22-26 mml/L) 08/20/18 04:38 POC ABG Total CO2 24 (23-27mmol/L) 08/20/18 04:38 POC ABG O2 Sat 99 08/20/18 04:38 PT/INR, D-dimer PT 16.5 Sec. (12.2-14.9) H 08/13/18 00:47 INR 1.25 (0.87-1.13) H 08/13/18 00:47 2742.50 ng/mlDDU (0-234) H 08/13/18 20:07 Abnormal lab findings: Abnormal Labs 08/12/18 08/12/18 08/12/18 21:44 21:44 21:44 WBC 15.5 H RBC 3.12 L Hgb 8.8 L Hct 28.9 L MCHC 31 L RDW 19.5 H [place] # Seg Neutrophils % Lymphocytes % (Manual) 48.0 H Seg Neutrophils # Lymphocytes # (Manual) 7.4 H PT 17.8 H INR 1.37 H APTT D-Dimer Heparin Anti-Xa Level POC ABG pH POC ABG pCO2 POC ABG pO2 Sodium 159 H Potassium Chloride 118.5 H Carbon Dioxide BUN 34 H Creatinine Glucose 161 H POC Glucose Lactic Acid Calcium Magnesium AST Alkaline Phosphatase Total Creatine Kinase CK-MB (CK-2) Troponin T 0.105 H* C-Reactive Protein Total Protein Albumin Cholesterol LDL Cholesterol Direct HDL Cholesterol Urine WBC (Auto) Urine Creatinine Urine Total Protein Crossmatch 08/13/18 08/13/18 08/13/18 00:32 00:47 00:47 WBC RBC Hgb 9.2 L Hct 29.6 L MCHC RDW [place] # Seg Neutrophils % Lymphocytes % (Manual) Seg Neutrophils # Lymphocytes # (Manual) PT 16.5 H INR 1.25 H APTT 37.3 H D-Dimer Heparin Anti-Xa Level POC ABG pH POC ABG pCO2 POC ABG pO2 Sodium Potassium Chloride Carbon Dioxide BUN Creatinine Glucose POC Glucose Lactic Acid Calcium Magnesium AST Alkaline Phosphatase Total Creatine Kinase 211 H CK-MB (CK-2) 7.7 H Troponin T 0.169 H* D C-Reactive Protein Total Protein Albumin Cholesterol 46 L LDL Cholesterol Direct 17 L HDL Cholesterol 6 L Urine WBC (Auto) Urine Creatinine Urine Total Protein Crossmatch 08/13/18 08/13/18 08/13/18 00:50 02:25 05:34 WBC RBC Hgb Hct MCHC RDW [place] # Seg Neutrophils % Lymphocytes % (Manual) Seg Neutrophils # Lymphocytes # (Manual) PT INR APTT D-Dimer Heparin Anti-Xa Level POC ABG pH 7.503 H POC ABG pCO2 POC ABG pO2 253 H Sodium Potassium Chloride Carbon Dioxide BUN Creatinine Glucose POC Glucose Lactic Acid Calcium Magnesium AST Alkaline Phosphatase Total Creatine Kinase 311 H CK-MB (CK-2) 10.4 H Troponin T 0.283 H* D C-Reactive Protein Total Protein Albumin Cholesterol LDL Cholesterol Direct HDL Cholesterol Urine WBC (Auto) > 182.0 H Urine Creatinine Urine Total Protein Crossmatch 08/13/18 08/13/18 08/13/18 06:35 10:10 10:10 WBC RBC Hgb Hct MCHC RDW [place] # Seg Neutrophils % Lymphocytes % (Manual) Seg Neutrophils # Lymphocytes # (Manual) PT INR APTT D-Dimer Heparin Anti-Xa Level POC ABG pH 7.554 H POC ABG pCO2 33.5 L POC ABG pO2 220 H Sodium 158 H Potassium Chloride 117.1 H Carbon Dioxide BUN 53 H Creatinine 2.0 H Glucose 247 H POC Glucose Lactic Acid Calcium 8.2 L Magnesium AST Alkaline Phosphatase Total Creatine Kinase 309 H CK-MB (CK-2) 4.1 H Troponin T 0.470 H* D C-Reactive Protein Total Protein Albumin Cholesterol LDL Cholesterol Direct HDL Cholesterol Urine WBC (Auto) Urine Creatinine Urine Total Protein Crossmatch 08/13/18 08/13/18 08/13/18 12:53 12:53 17:55 WBC RBC Hgb Hct MCHC RDW [place] # Seg Neutrophils % Lymphocytes % (Manual) Seg Neutrophils # Lymphocytes # (Manual) PT INR APTT D-Dimer Heparin Anti-Xa Level POC ABG pH POC ABG pCO2 POC ABG pO2 Sodium Potassium Chloride Carbon Dioxide BUN Creatinine Glucose POC Glucose 308 H Lactic Acid 2.80 H* Calcium Magnesium 2.50 H AST Alkaline Phosphatase Total Creatine Kinase CK-MB (CK-2) Troponin T C-Reactive Protein 16.90 H Total Protein Albumin Cholesterol LDL Cholesterol Direct HDL Cholesterol Urine WBC (Auto) Urine Creatinine Urine Total Protein Crossmatch 08/13/18 08/13/18 08/13/18 20:07 21:16 23:17 WBC RBC Hgb Hct MCHC RDW [place] # Seg Neutrophils % Lymphocytes % (Manual) Seg Neutrophils # Lymphocytes # (Manual) PT INR APTT D-Dimer 2742.50 H Heparin Anti-Xa Level POC ABG pH 7.483 H POC ABG pCO2 30.8 L POC ABG pO2 150 H Sodium Potassium Chloride Carbon Dioxide BUN Creatinine Glucose POC Glucose 245 H Lactic Acid Calcium Magnesium AST Alkaline Phosphatase Total Creatine Kinase CK-MB (CK-2) Troponin T C-Reactive Protein Total Protein Albumin Cholesterol LDL Cholesterol Direct HDL Cholesterol Urine WBC (Auto) Urine Creatinine Urine Total Protein Crossmatch 08/14/18 08/14/18 08/14/18 04:03 04:03 04:56 WBC 18.2 H RBC 2.62 L Hgb 7.3 L Hct 24.5 L MCHC RDW 18.9 H [place] # 1.2 H Seg Neutrophils % 79.4 H Lymphocytes % (Manual) Seg Neutrophils # 14.5 H Lymphocytes # (Manual) PT INR APTT D-Dimer Heparin Anti-Xa Level POC ABG pH POC ABG pCO2 33.5 L POC ABG pO2 153 H Sodium 152 H Potassium 3.4 L Chloride 113.8 H Carbon Dioxide BUN 72 H Creatinine 2.7 H Glucose 239 H POC Glucose Lactic Acid Calcium 7.6 L Magnesium AST 50 H Alkaline Phosphatase 219 H Total Creatine Kinase CK-MB (CK-2) Troponin T 0.409 H* C-Reactive Protein Total Protein 6.2 L Albumin 1.9 L Cholesterol LDL Cholesterol Direct HDL Cholesterol Urine WBC (Auto) Urine Creatinine Urine Total Protein Crossmatch 08/14/18 08/14/18 08/14/18 05:18 13:38 15:35 WBC RBC Hgb Hct MCHC RDW [place] # Seg Neutrophils % Lymphocytes % (Manual) Seg Neutrophils # Lymphocytes # (Manual) PT INR APTT D-Dimer Heparin Anti-Xa Level POC ABG pH POC ABG pCO2 POC ABG pO2 Sodium 150 H Potassium 3.2 L Chloride 114.5 H Carbon Dioxide BUN 69 H Creatinine 2.3 H Glucose 247 H POC Glucose 242 H 296 H Lactic Acid Calcium 7.2 L Magnesium AST Alkaline Phosphatase Total Creatine Kinase CK-MB (CK-2) Troponin T C-Reactive Protein Total Protein Albumin Cholesterol LDL Cholesterol Direct HDL Cholesterol Urine WBC (Auto) Urine Creatinine Urine Total Protein Crossmatch 08/14/18 08/14/18 08/14/18 17:01 17:20 23:47 WBC RBC Hgb Hct MCHC RDW [place] # Seg Neutrophils % Lymphocytes % (Manual) Seg Neutrophils # Lymphocytes # (Manual) PT INR APTT D-Dimer Heparin Anti-Xa Level POC ABG pH POC ABG pCO2 POC ABG pO2 Sodium Potassium Chloride Carbon Dioxide BUN Creatinine Glucose POC Glucose 261 H 280 H Lactic Acid Calcium Magnesium AST Alkaline Phosphatase Total Creatine Kinase CK-MB (CK-2) Troponin T C-Reactive Protein Total Protein Albumin Cholesterol LDL Cholesterol Direct HDL Cholesterol Urine WBC (Auto) Urine Creatinine 60.9 H Urine Total Protein 64 H Crossmatch 08/15/18 08/15/18 08/15/18 04:05 04:05 04:05 WBC RBC Hgb 6.3 L Hct 19.7 L* MCHC RDW [place] # Seg Neutrophils % Lymphocytes % (Manual) Seg Neutrophils # Lymphocytes # (Manual) PT INR APTT D-Dimer Heparin Anti-Xa Level 0.17 L POC ABG pH POC ABG pCO2 POC ABG pO2 Sodium 146 H Potassium 3.0 L Chloride 110.6 H Carbon Dioxide BUN 64 H Creatinine 2.2 H Glucose 231 H POC Glucose Lactic Acid Calcium 7.1 L Magnesium AST Alkaline Phosphatase Total Creatine Kinase CK-MB (CK-2) Troponin T C-Reactive Protein Total Protein Albumin Cholesterol LDL Cholesterol Direct HDL Cholesterol Urine WBC (Auto) Urine Creatinine Urine Total Protein Crossmatch 08/15/18 08/15/18 08/15/18 05:21 05:26 06:35 WBC RBC Hgb Hct MCHC RDW [place] # Seg Neutrophils % Lymphocytes % (Manual) Seg Neutrophils # Lymphocytes # (Manual) PT INR APTT 79.0 H* D-Dimer Heparin Anti-Xa Level POC ABG pH 7.494 H POC ABG pCO2 POC ABG pO2 155 H Sodium Potassium Chloride Carbon Dioxide BUN Creatinine Glucose POC Glucose 271 H Lactic Acid Calcium Magnesium AST Alkaline Phosphatase Total Creatine Kinase CK-MB (CK-2) Troponin T C-Reactive Protein Total Protein Albumin Cholesterol LDL Cholesterol Direct HDL Cholesterol Urine WBC (Auto) Urine Creatinine Urine Total Protein Crossmatch 08/15/18 08/15/18 08/15/18 12:10 15:31 17:27 WBC RBC Hgb Hct MCHC RDW [place] # Seg Neutrophils % Lymphocytes % (Manual) Seg Neutrophils # Lymphocytes # (Manual) PT INR APTT D-Dimer Heparin Anti-Xa Level POC ABG pH POC ABG pCO2 POC ABG pO2 Sodium Potassium Chloride Carbon Dioxide BUN Creatinine Glucose POC Glucose 301 H 287 H Lactic Acid Calcium Magnesium AST Alkaline Phosphatase Total Creatine Kinase CK-MB (CK-2) Troponin T C-Reactive Protein Total Protein Albumin Cholesterol LDL Cholesterol Direct HDL Cholesterol Urine WBC (Auto) Urine Creatinine Urine Total Protein Crossmatch See Detail 08/15/18 08/15/18 08/16/18 21:41 23:45 04:13 WBC RBC Hgb Hct MCHC RDW [place] # Seg Neutrophils % Lymphocytes % (Manual) Seg Neutrophils # Lymphocytes # (Manual) PT INR APTT D-Dimer Heparin Anti-Xa Level 0.19 L POC ABG pH POC ABG pCO2 32.1 L POC ABG pO2 107 H Sodium Potassium Chloride Carbon Dioxide BUN Creatinine Glucose POC Glucose 163 H Lactic Acid Calcium Magnesium AST Alkaline Phosphatase Total Creatine Kinase CK-MB (CK-2) Troponin T C-Reactive Protein Total Protein Albumin Cholesterol LDL Cholesterol Direct HDL Cholesterol Urine WBC (Auto) Urine Creatinine Urine Total Protein Crossmatch 08/16/18 08/16/18 08/16/18 04:50 05:28 11:30 WBC RBC 2.67 L Hgb 8.1 L Hct 23.4 L MCHC 35 H RDW 18.3 H [place] # Seg Neutrophils % Lymphocytes % (Manual) Seg Neutrophils # Lymphocytes # (Manual) PT INR APTT D-Dimer Heparin Anti-Xa Level 0.19 L POC ABG pH POC ABG pCO2 POC ABG pO2 Sodium Potassium Chloride Carbon Dioxide BUN Creatinine Glucose POC Glucose 141 H Lactic Acid Calcium Magnesium AST Alkaline Phosphatase Total Creatine Kinase CK-MB (CK-2) Troponin T C-Reactive Protein Total Protein Albumin Cholesterol LDL Cholesterol Direct HDL Cholesterol Urine WBC (Auto) Urine Creatinine Urine Total Protein Crossmatch 08/16/18 08/16/18 08/16/18 11:30 12:00 12:01 WBC RBC Hgb Hct MCHC RDW [place] # Seg Neutrophils % Lymphocytes % (Manual) Seg Neutrophils # Lymphocytes # (Manual) PT INR APTT D-Dimer Heparin Anti-Xa Level 0.15 L POC ABG pH POC ABG pCO2 POC ABG pO2 Sodium Potassium Chloride 107.8 H Carbon Dioxide 21 L BUN 47 H Creatinine 1.6 H Glucose 221 H POC Glucose 267 H Lactic Acid Calcium 6.9 L Magnesium AST Alkaline Phosphatase Total Creatine Kinase CK-MB (CK-2) Troponin T C-Reactive Protein Total Protein Albumin Cholesterol LDL Cholesterol Direct HDL Cholesterol Urine WBC (Auto) Urine Creatinine Urine Total Protein Crossmatch 08/16/18 08/16/18 08/16/18 17:23 20:01 23:13 WBC RBC Hgb Hct MCHC RDW [place] # Seg Neutrophils % Lymphocytes % (Manual) Seg Neutrophils # Lymphocytes # (Manual) PT INR APTT D-Dimer Heparin Anti-Xa Level 0.26 L POC ABG pH POC ABG pCO2 POC ABG pO2 Sodium Potassium Chloride Carbon Dioxide BUN Creatinine Glucose POC Glucose 245 H 256 H Lactic Acid Calcium Magnesium AST Alkaline Phosphatase Total Creatine Kinase CK-MB (CK-2) Troponin T C-Reactive Protein Total Protein Albumin Cholesterol LDL Cholesterol Direct HDL Cholesterol Urine WBC (Auto) Urine Creatinine Urine Total Protein Crossmatch 08/17/18 08/17/18 08/17/18 04:29 04:55 05:34 WBC RBC Hgb 8.2 L Hct 24.3 L MCHC RDW [place] # Seg Neutrophils % Lymphocytes % (Manual) Seg Neutrophils # Lymphocytes # (Manual) PT INR APTT D-Dimer Heparin Anti-Xa Level POC ABG pH POC ABG pCO2 32.4 L POC ABG pO2 108 H Sodium Potassium Chloride Carbon Dioxide BUN Creatinine Glucose POC Glucose 268 H Lactic Acid Calcium Magnesium AST Alkaline Phosphatase Total Creatine Kinase CK-MB (CK-2) Troponin T C-Reactive Protein Total Protein Albumin Cholesterol LDL Cholesterol Direct HDL Cholesterol Urine WBC (Auto) Urine Creatinine Urine Total Protein Crossmatch 08/17/18 08/17/18 08/17/18 11:54 13:44 17:24 WBC RBC Hgb Hct MCHC RDW [place] # Seg Neutrophils % Lymphocytes % (Manual) Seg Neutrophils # Lymphocytes # (Manual) PT INR APTT D-Dimer Heparin Anti-Xa Level POC ABG pH POC ABG pCO2 32.7 L POC ABG pO2 142 H Sodium Potassium Chloride Carbon Dioxide BUN Creatinine Glucose POC Glucose 295 H 283 H Lactic Acid Calcium Magnesium AST Alkaline Phosphatase Total Creatine Kinase CK-MB (CK-2) Troponin T C-Reactive Protein Total Protein Albumin Cholesterol LDL Cholesterol Direct HDL Cholesterol Urine WBC (Auto) Urine Creatinine Urine Total Protein Crossmatch 08/18/18 08/18/18 08/18/18 00:05 00:59 04:15 WBC RBC Hgb Hct MCHC RDW [place] # Seg Neutrophils % Lymphocytes % (Manual) Seg Neutrophils # Lymphocytes # (Manual) PT INR APTT D-Dimer Heparin Anti-Xa Level POC ABG pH POC ABG pCO2 POC ABG pO2 115 H Sodium Potassium Chloride Carbon Dioxide BUN Creatinine Glucose POC Glucose 247 H 251 H Lactic Acid Calcium Magnesium AST Alkaline Phosphatase Total Creatine Kinase CK-MB (CK-2) Troponin T C-Reactive Protein Total Protein Albumin Cholesterol LDL Cholesterol Direct HDL Cholesterol Urine WBC (Auto) Urine Creatinine Urine Total Protein Crossmatch 08/18/18 08/18/18 08/18/18 05:02 12:20 17:51 WBC RBC Hgb Hct MCHC RDW [place] # Seg Neutrophils % Lymphocytes % (Manual) Seg Neutrophils # Lymphocytes # (Manual) PT INR APTT D-Dimer Heparin Anti-Xa Level POC ABG pH POC ABG pCO2 POC ABG pO2 Sodium Potassium Chloride Carbon Dioxide BUN Creatinine Glucose POC Glucose 282 H 209 H 261 H Lactic Acid Calcium Magnesium AST Alkaline Phosphatase Total Creatine Kinase CK-MB (CK-2) Troponin T C-Reactive Protein Total Protein Albumin Cholesterol LDL Cholesterol Direct HDL Cholesterol Urine WBC (Auto) Urine Creatinine Urine Total Protein Crossmatch 08/18/18 08/19/18 08/19/18 23:30 04:54 05:16 WBC RBC 2.62 L Hgb 7.5 L Hct 23.1 L MCHC RDW 18.1 H [place] # Seg Neutrophils % Lymphocytes % (Manual) Seg Neutrophils # Lymphocytes # (Manual) PT INR APTT D-Dimer Heparin Anti-Xa Level POC ABG pH POC ABG pCO2 POC ABG pO2 58 L Sodium Potassium Chloride Carbon Dioxide BUN Creatinine Glucose POC Glucose 231 H Lactic Acid Calcium Magnesium AST Alkaline Phosphatase Total Creatine Kinase CK-MB (CK-2) Troponin T C-Reactive Protein Total Protein Albumin Cholesterol LDL Cholesterol Direct HDL Cholesterol Urine WBC (Auto) Urine Creatinine Urine Total Protein Crossmatch 08/19/18 08/19/18 08/19/18 05:16 05:40 11:56 WBC RBC Hgb Hct MCHC RDW [place] # Seg Neutrophils % Lymphocytes % (Manual) Seg Neutrophils # Lymphocytes # (Manual) PT INR APTT D-Dimer Heparin Anti-Xa Level POC ABG pH POC ABG pCO2 POC ABG pO2 Sodium 152 H D Potassium Chloride 118.7 H Carbon Dioxide BUN 38 H Creatinine Glucose 220 H POC Glucose 227 H 213 H Lactic Acid Calcium 8.1 L D Magnesium AST Alkaline Phosphatase Total Creatine Kinase CK-MB (CK-2) Troponin T C-Reactive Protein Total Protein Albumin Cholesterol LDL Cholesterol Direct HDL Cholesterol Urine WBC (Auto) Urine Creatinine Urine Total Protein Crossmatch 08/19/18 08/19/18 08/20/18 18:37 23:32 04:38 WBC RBC Hgb Hct MCHC RDW [place] # Seg Neutrophils % Lymphocytes % (Manual) Seg Neutrophils # Lymphocytes # (Manual) PT INR APTT D-Dimer Heparin Anti-Xa Level POC ABG pH POC ABG pCO2 POC ABG pO2 140 H Sodium Potassium Chloride Carbon Dioxide BUN Creatinine Glucose POC Glucose 227 H 245 H Lactic Acid Calcium Magnesium AST Alkaline Phosphatase Total Creatine Kinase CK-MB (CK-2) Troponin T C-Reactive Protein Total Protein Albumin Cholesterol LDL Cholesterol Direct HDL Cholesterol Urine WBC (Auto) Urine Creatinine Urine Total Protein Crossmatch 08/20/18 08/20/18 08/20/18 05:31 05:37 05:37 WBC RBC 2.60 L Hgb 7.5 L Hct 22.9 L MCHC RDW 18.4 H [place] # Seg Neutrophils % Lymphocytes % (Manual) Seg Neutrophils # Lymphocytes # (Manual) PT INR APTT D-Dimer Heparin Anti-Xa Level POC ABG pH POC ABG pCO2 POC ABG pO2 Sodium 150 H Potassium Chloride 115.6 H Carbon Dioxide BUN 38 H Creatinine Glucose 276 H POC Glucose 266 H Lactic Acid Calcium 7.9 L Magnesium AST Alkaline Phosphatase Total Creatine Kinase CK-MB (CK-2) Troponin T C-Reactive Protein Total Protein Albumin Cholesterol LDL Cholesterol Direct HDL Cholesterol Urine WBC (Auto) Urine Creatinine Urine Total Protein Crossmatch Allied health notes reviewed: nursing
--- NOTE | 2018-08-20 09:27 | Progress Note ---
Assessment and Plan - Patient Problems (1) MAYLIN (acute kidney injury) Current Visit: Yes Status: Acute Plan to address problem: Likely pre-renal injury vs ischemic ATN in the setting of cardiac arrest. Renal function remains stable. Continue current supportive care/management. Avoid nephrotoxins, maintain MAP >65mmHg. (2) Acute and chronic respiratory failure Current Visit: Yes Status: Acute Qualifiers: Respiratory failure complication: hypoxia Qualified Code(s): J96.21 - Acute and chronic respiratory failure with hypoxia Plan to address problem: Management per primary attending/pulmonology. (3) Hypernatremia Current Visit: Yes Status: Acute Plan to address problem: Now on FWF 250 cc q4hrs. Will continue to monitor. (4) Hypokalemia Current Visit: Yes Status: Acute Plan to address problem: Replete per protocol. (5) Cardiac arrest Current Visit: Yes Status: Acute Plan to address problem: Off pressors at this time. Remains intubated, unresponsive off sedation. Poor brainstem reflexes per nursing staff. No change in overall mental status at this time. (6) Type 2 diabetes mellitus without complications Current Visit: Yes Status: Acute Plan to address problem: DM management per primary attending. Subjective Date of service: 08/20/18 Principal diagnosis: Acute hypoxemic resp failure; S/P cardiac arrest; Seizures; DM II; H/O CVA Interval history: No acute changes, on FWF (250 cc q4hrs), plan for traech. Renal function remains stable. Objective - Vital Signs Vital signs: Vital Signs - 12hr 08/19/18 08/19/18 08/19/18 21:30 22:00 22:30 Temperature Pulse Rate 51 L 52 L 52 L Pulse Rate [ From Monitor] Respiratory 15 13 14 Rate Blood Pressure 135/50 138/51 142/51 O2 Sat by Pulse 100 100 100 Oximetry 08/19/18 08/19/18 08/19/18 22:54 23:00 23:30 Temperature Pulse Rate 55 L 55 L 56 L Pulse Rate [ From Monitor] Respiratory 16 13 15 Rate Blood Pressure 142/51 137/53 137/54 O2 Sat by Pulse 100 100 100 Oximetry 08/19/18 08/20/18 08/20/18 23:45 00:00 00:30 Temperature 98.8 F Pulse Rate 55 L 56 L 55 L Pulse Rate [ 56 L From Monitor] Respiratory 9 L 14 Rate Blood Pressure 137/54 144/54 136/53 O2 Sat by Pulse 100 100 100 Oximetry 08/20/18 08/20/18 08/20/18 01:00 01:30 02:00 Temperature Pulse Rate 54 L 54 L 57 L Pulse Rate [ From Monitor] Respiratory 10 L 12 16 Rate Blood Pressure 143/52 144/49 141/53 O2 Sat by Pulse 100 100 100 Oximetry 08/20/18 08/20/18 08/20/18 02:30 03:00 03:30 Temperature Pulse Rate 59 L 62 59 L Pulse Rate [ From Monitor] Respiratory 14 14 16 Rate Blood Pressure 146/56 139/50 125/49 O2 Sat by Pulse 100 100 100 Oximetry 08/20/18 08/20/18 08/20/18 04:00 04:30 04:34 Temperature 98.9 F Pulse Rate 60 60 61 Pulse Rate [ 60 From Monitor] Respiratory 13 14 Rate Blood Pressure 132/49 133/51 133/51 O2 Sat by Pulse 98 100 100 Oximetry 08/20/18 08/20/18 08/20/18 05:00 05:30 06:00 Temperature Pulse Rate 61 64 63 Pulse Rate [ From Monitor] Respiratory 16 15 15 Rate Blood Pressure 138/54 138/53 138/50 O2 Sat by Pulse 100 100 100 Oximetry 08/20/18 08/20/18 08/20/18 06:30 07:00 07:30 Temperature Pulse Rate 62 61 60 Pulse Rate [ From Monitor] Respiratory 13 14 14 Rate Blood Pressure 140/52 138/51 142/53 O2 Sat by Pulse 100 100 100 Oximetry 08/20/18 08/20/18 08:00 08:14 Temperature Pulse Rate 63 60 Pulse Rate [ 62 From Monitor] Respiratory 16 Rate Blood Pressure 139/52 139/52 O2 Sat by Pulse 100 100 Oximetry - General Appearance General appearance: cachectic, chronically ill, intubated, frail EENT: ATNC Neck: no JVD Respiratory: Present: Decreased Breath Sounds Cardiology: regular, S1S2 Gastrointestinal: normal Integumentary: no rash Neurologic: other (unresponsive off sedation ) Musculoskeletal: other (-edema ) - Lab 08/20/18 05:37 08/20/18 05:37 Most recent lab results Calcium 7.9 mg/dL (8.4-10.2) L 08/20/18 05:37 Phosphorus 3.90 mg/dL (2.5-4.5) 08/15/18 04:05 Magnesium 2.20 mg/dL (1.7-2.3) 08/15/18 04:05 60.9 mg/dL (0.1-20.0) H 08/14/18 17:20 32 mmol/L 08/14/18 17:20 64 mg/dL (5-11.8) H 08/14/18 17:20 - Imaging Chest x-ray: report reviewed - Allied health notes Allied health notes reviewed: nursing Medications & Allergies - Medications Allergies/Adverse Reactions: Allergies No Known Allergies Allergy (Verified 08/12/18 21:47) Home Medications: Home Medications Medication Instructions Recorded Confirmed Last Taken Type Acetaminophen TAB 2 1000units FEEDTUBE Q6HR PRN 08/18/18 08/18/18 Unknown History Amantadine [Symmetrel] 100 mg FEEDTUBE DAILY 08/18/18 08/18/18 08/13/18 History Amlodipine Besylate [Norvasc] 5 mg FEEDTUBE DAILY 08/18/18 08/18/18 08/13/18 History Ascorbic Acid [Vitamin C Oral Liq] 500 mg FEEDTUBE QDAY 08/18/18 08/18/18 08/13/18 History Ascorbic Acid [Vitamin C with Fiordaliza 1 tab FEEDTUBE DAILY 08/18/18 08/18/18 Unknown History Hips] Aspirin BABY CHEW TAB 1 tab FEEDTUBE DAILY 08/18/18 08/18/18 Unknown History Aspirin BABY CHEW TAB 81 mg FEEDTUBE DAILY 08/18/18 08/18/18 08/13/18 History Atorvastatin Calcium [Lipitor] 40 mg FEEDTUBE DAILY 08/18/18 08/18/18 08/13/18 History Benazepril HCl 10 mg FEEDTUBE DAILY 08/18/18 08/18/18 08/13/18 History Bisacodyl [Dulcolax suppos] 10 mg ND QDAY PRN 08/18/18 08/18/18 Unknown History Docusate Sodium [Colace ORAL LIQ] 100 mg FEEDTUBE QDAY PRN 08/18/18 08/18/18 Unknown History Ferrous Sulfate [Ferrous Sulfate 7.5 ml FEEDTUBE DAILY 08/18/18 08/18/18 08/13/18 History 220 MG/5 ML] Glycopyrrolate [Robinul] 2 mg FEEDTUBE Q8H 08/18/18 08/18/18 08/13/18 History Heparin Sod,Porcine/0.9 % NaCl 5,000 units SUB-Q Q8H 08/18/18 08/18/18 Unknown History [Heparin 5,000 Unit/5 ml-Ns] Insulin Glargine,Hum.rec.anlog 40 unit SQ HS 08/18/18 08/18/18 08/12/18 History [Basaglar Kwikpen U-100] Lacosamide [Vimpat] 1 tab FEEDTUBE Q12HR 08/18/18 08/18/18 Unknown History Lipitor 10 mg FEEDTUBE DAILY 08/18/18 08/18/18 Unknown History Mag-Al Plus Suspension 5 ml FEEDTUBE Q4HR PRN 08/18/18 08/19/18 Unknown History Melatonin 3 mg FEEDTUBE HS 08/18/18 08/18/18 Unknown History Sucralfate [Carafate] 1 gm FEEDTUBE Q8H 08/18/18 08/18/18 08/13/18 History Tamsulosin 0.4 mg FEEDTUBE DAILY 08/18/18 08/18/18 Unknown History guaiFENesin 200 mg FEEDTUBE Q4H PRN 08/18/18 08/18/18 Unknown History Active Medications: Generic Name Dose Route Start Last Admin Trade Name Freq PRN Reason Stop Dose Admin Acetaminophen 650 mg 08/13/18 11:40 08/13/18 16:09 Tylenol PO 650 mg Q6H PRN Administration Fever >101 Lipase/Protease/Amylase 1 each 08/13/18 15:[address] 10,500 Unit FEEDTUBE PRN PRN For Clogged Feeding Tube Aspirin 325 mg 08/17/18 10:00 08/19/18 10:32 Aspirin PO 325 mg QDAY LENCHO Administration Atorvastatin Calcium 40 mg 08/14/18 22:00 08/19/18 22:10 Lipitor PO 40 mg QHS LENCHO Administration Dextrose 50 ml 08/13/18 01:34 D50w (25gm) Syringe IV PRN PRN Hypoglycemia Enoxaparin Sodium 40 mg 08/17/18 22:00 08/19/18 22:11 Lovenox SUB-Q 40 mg QDAY@2200 LENCHO Administration Famotidine 20 mg 08/19/18 10:00 08/19/18 22:10 Pepcid PO 20 mg BID LENCHO Administration Hydrophilic Ointment 1 applic 08/13/18 12:21 Vaseline Lip Therapy TP Q2HR PRN Dry Lips Fentanyl Citrate 2,000 mcg in 100 mls @ 3.629 mls/hr 08/14/18 13:00 Fentanyl Drip Premix IV TITR LENCHO Protocol 1 MCG/KG/HR Insulin Glargine 30 units 08/19/18 10:00 08/19/18 10:32 Lantus SUB-Q 30 units DAILY COUNTS INCLUDE 234 BEDS AT [facility] Administration Insulin Human Lispro 0 unit 08/13/18 06:00 08/20/18 06:12 Humalog SUB-Q 4 unit Q6HR COUNTS INCLUDE 234 BEDS AT THE [facility] Administration Protocol Levetiracetam 1,000 mg 08/13/18 15:00 08/19/18 22:10 Keppra PO 1,000 mg BID LENCHO Administration Multi-Ingred Cream/Lotion/Oil/Oint 1 applic 08/13/18 12:21 08/17/18 00:41 Artificial Tears Ophth Oint OU 1 applic Q4HR PRN Administration Dry Eye(s) Ondansetron HCl 4 mg 08/13/18 01:34 Zofran IV Q8H PRN Nausea And Vomiting Simple Syrup 15 ml 08/13/18 15:55 Simple Syrup FEEDTUBE PRN PRN Hypoglycemia Simple Syrup 30 ml 08/13/18 15:55 Simple Syrup FEEDTUBE PRN PRN Hypoglycemia Sodium Bicarbonate 325 mg 08/13/18 15:55 Sodium Bicarbonate FEEDTUBE PRN PRN For Clogged Feeding Tube Sodium Chloride 10 ml 08/13/18 10:00 08/19/18 22:11 Sodium Chloride Flush Syringe 10 Ml IV 10 ml BID LENCHO Administration Sodium Chloride 10 ml 08/13/18 01:34 Sodium Chloride Flush Syringe 10 Ml IV PRN PRN LINE FLUSH
[2018-08-20] MEDS: PEPCID PO SCH ×2 (10:00→22:01)
[2018-08-20] MEDS: KEPPRA PO SCH ×2 (10:00→22:00)
[2018-08-20] MEDS: LANTUS SUB-Q SCH (10:00)
[2018-08-20] MEDS: ASPIRIN PO SCH (10:00)
[2018-08-20] MEDS: SODIUM CHLORIDE FLUSH SYRINGE 10 ML IV SCH ×2 (10:00→22:02)
[2018-08-20] MEDS: LOVENOX SUB-Q SCH (22:02)
[2018-08-21] MEDS: HumaLOG SUB-Q SCH ×4 (00:22→18:08)
[2018-08-21 04:54] LABS: Hematocrit 23.3 % (35.5-45.6); Hemoglobin 7.6 gm/dl (11.8-15.2); Mean Corpuscular HGB Conc 33 % (32-34); Mean Corpuscular Volume 88 fl (84-94); Platelet Count 293 K/mm3 (140-440); Red Blood Count 2.65 M/mm3 (3.65-5.03); Red Cell Distribution Width 19.1 % (13.2-15.2)
[2018-08-21 05:09] LABS: BUN/Creatinine Ratio 37; Blood Urea Nitrogen 37 mg/dL (9-20); Calcium 7.9 mg/dL (8.4-10.2); Hemolysis Index 0
--- NOTE | 2018-08-21 07:05 | Progress Note ---
Assessment and Plan - Patient Problems (1) MAYLIN (acute kidney injury) Current Visit: Yes Status: Acute Plan to address problem: Likely pre-renal injury vs ischemic ATN in the setting of cardiac arrest. Renal function remains stable. Continue current supportive care/management. Avoid nephrotoxins, maintain MAP >65mmHg. (2) Acute and chronic respiratory failure Current Visit: Yes Status: Acute Qualifiers: Respiratory failure complication: hypoxia Qualified Code(s): J96.21 - Acute and chronic respiratory failure with hypoxia Plan to address problem: Management per primary attending/pulmonology. (3) Hypernatremia Current Visit: Yes Status: Acute Plan to address problem: Recommend increasing FWF to 300 cc q4hrs. Will continue to monitor. (4) Hypokalemia Current Visit: Yes Status: Acute Plan to address problem: Replete per protocol. (5) Cardiac arrest Current Visit: Yes Status: Acute Plan to address problem: Off pressors at this time. Remains intubated, unresponsive off sedation. Poor brainstem reflexes per nursing staff. No change in overall mental status at this time. (6) Type 2 diabetes mellitus without complications Current Visit: Yes Status: Acute Plan to address problem: DM management per primary attending. Subjective Date of service: 08/21/18 Principal diagnosis: Acute hypoxemic resp failure; S/P cardiac arrest; Seizures; DM II; H/O CVA Interval history: No acute changes. remains unresponsive off sedation. Labs noted and renal function stable. Objective - Vital Signs Vital signs: Vital Signs - 12hr 08/20/18 08/20/18 08/20/18 19:30 20:00 20:03 Temperature Pulse Rate 61 61 59 L Pulse Rate [ 61 From Monitor] Respiratory 13 13 Rate Blood Pressure 138/53 138/53 138/53 O2 Sat by Pulse 99 100 100 Oximetry 08/20/18 08/20/18 08/20/18 20:30 21:00 21:30 Temperature Pulse Rate 60 58 L 58 L Pulse Rate [ From Monitor] Respiratory 12 12 13 Rate Blood Pressure 143/57 153/57 153/57 O2 Sat by Pulse 100 100 100 Oximetry 08/20/18 08/20/18 08/20/18 21:43 22:00 22:30 Temperature 99.3 F Pulse Rate 60 59 L Pulse Rate [ From Monitor] Respiratory 14 14 Rate Blood Pressure 153/57 137/53 O2 Sat by Pulse 100 99 Oximetry 08/20/18 08/20/18 08/20/18 23:00 23:24 23:30 Temperature Pulse Rate 67 61 62 Pulse Rate [ From Monitor] Respiratory 13 13 13 Rate Blood Pressure 138/56 138/56 142/52 O2 Sat by Pulse 99 100 100 Oximetry 08/20/18 08/20/18 08/21/18 23:34 23:35 00:00 Temperature Pulse Rate 61 60 62 Pulse Rate [ 62 From Monitor] Respiratory 13 13 Rate Blood Pressure 142/52 138/56 139/53 O2 Sat by Pulse 100 100 100 Oximetry 08/21/18 08/21/18 08/21/18 00:30 01:00 01:30 Temperature Pulse Rate 58 L 60 58 L Pulse Rate [ From Monitor] Respiratory 13 14 13 Rate Blood Pressure 137/54 141/54 141/54 O2 Sat by Pulse 100 100 100 Oximetry 08/21/18 08/21/18 08/21/18 02:00 02:30 03:00 Temperature Pulse Rate 60 61 62 Pulse Rate [ From Monitor] Respiratory 12 13 14 Rate Blood Pressure 144/55 145/58 145/58 O2 Sat by Pulse 100 100 100 Oximetry 08/21/18 08/21/18 08/21/18 03:24 03:30 04:00 Temperature Pulse Rate 60 58 L 60 Pulse Rate [ 60 From Monitor] Respiratory 12 16 Rate Blood Pressure 143/55 143/55 141/53 O2 Sat by Pulse 100 100 100 Oximetry 08/21/18 08/21/18 08/21/18 04:30 05:00 05:30 Temperature Pulse Rate 59 L 61 60 Pulse Rate [ From Monitor] Respiratory 21 16 14 Rate Blood Pressure 147/58 147/58 151/56 O2 Sat by Pulse 100 100 100 Oximetry 08/21/18 06:00 Temperature Pulse Rate 60 Pulse Rate [ From Monitor] Respiratory 15 Rate Blood Pressure 137/53 O2 Sat by Pulse 100 Oximetry - General Appearance General appearance: cachectic, chronically ill, intubated, frail EENT: ATNC Neck: no JVD, no thyromegaly Respiratory: Present: Decreased Breath Sounds Cardiology: regular, S1S2 Gastrointestinal: normal Integumentary: no rash Neurologic: other (unresponsive off sedation ) - Lab 08/21/18 04:41 08/21/18 04:41 Most recent lab results Calcium 7.9 mg/dL (8.4-10.2) L 08/21/18 04:41 Phosphorus 3.90 mg/dL (2.5-4.5) 08/15/18 04:05 Magnesium 2.20 mg/dL (1.7-2.3) 08/15/18 04:05 60.9 mg/dL (0.1-20.0) H 08/14/18 17:20 32 mmol/L 08/14/18 17:20 64 mg/dL (5-11.8) H 08/14/18 17:20 - Allied health notes Allied health notes reviewed: nursing Medications & Allergies - Medications Allergies/Adverse Reactions: Allergies No Known Allergies Allergy (Verified 08/12/18 21:47) Home Medications: Home Medications Medication Instructions Recorded Confirmed Last Taken Type Acetaminophen TAB 2 1000units FEEDTUBE Q6HR PRN 08/18/18 08/18/18 Unknown History Amantadine [Symmetrel] 100 mg FEEDTUBE DAILY 08/18/18 08/18/18 08/13/18 History Amlodipine Besylate [Norvasc] 5 mg FEEDTUBE DAILY 08/18/18 08/18/18 08/13/18 History Ascorbic Acid [Vitamin C Oral Liq] 500 mg FEEDTUBE QDAY 08/18/18 08/18/18 08/13/18 History Ascorbic Acid [Vitamin C with Fiordaliza 1 tab FEEDTUBE DAILY 08/18/18 08/18/18 Unknow n History Hips] Aspirin BABY CHEW TAB 1 tab FEEDTUBE DAILY 08/18/18 08/18/18 Unknown History Aspirin BABY CHEW TAB 81 mg FEEDTUBE DAILY 08/18/18 08/18/18 08/13/18 History Atorvastatin Calcium [Lipitor] 40 mg FEEDTUBE DAILY 08/18/18 08/18/18 08/13/18 History Benazepril HCl 10 mg FEEDTUBE DAILY 08/18/18 08/18/18 08/13/18 History Bisacodyl [Dulcolax suppos] 10 mg MO QDAY PRN 08/18/18 08/18/18 Unknown History Docusate Sodium [Colace ORAL LIQ] 100 mg FEEDTUBE QDAY PRN 08/18/18 08/18/18 Unknown History Ferrous Sulfate [Ferrous Sulfate 7.5 ml FEEDTUBE DAILY 08/18/18 08/18/1808/13 History 220 MG/5 ML] Glycopyrrolate [Robinul] 2 mg FEEDTUBE Q8H 08/18/18 08/18/18 08/13/18 History Heparin Sod,Porcine/0.9 % NaCl 5,000 units SUB-Q Q8H 08/18/18 08/18/18 Unknown History [Heparin 5,000 Unit/5 ml-Ns] Insulin Glargine,Hum.rec.anlog 40 unit SQ HS 08/18/18 08/18/18 08/12/18 History [Basaglar Kwikpen U-100] Lacosamide [Vimpat] 1 tab FEEDTUBE Q12HR 08/18/18 08/18/18 Unknown History Lipitor 10 mg FEEDTUBE DAILY 08/18/18 08/18/18 Unknown History Mag-Al Plus Suspension 5 ml FEEDTUBE Q4HR PRN 08/18/18 08/19/18 Unknown History Melatonin 3 mg FEEDTUBE HS 08/18/18 08/18/18 Unknown History Sucralfate [Carafate] 1 gm FEEDTUBE Q8H 08/18/18 08/18/18 08/13/18 History Tamsulosin 0.4 mg FEEDTUBE DAILY 08/18/18 08/18/18 Unknown History guaiFENesin 200 mg FEEDTUBE Q4H PRN 08/18/18 08/18/18 Unknown History Active Medications: Generic Name Dose Route Start Last Admin Trade Name Freq PRN Reason Stop Dose Admin Acetaminophen 650 mg 08/13/18 11:40 08/13/18 16:09 Tylenol PO 650 mg Q6H PRN Administration Fever >101 Lipase/Protease/Amylase 1 each 08/13/18 15:55 Pancreaze 10,500 Unit FEEDTUBE PRN PRN For Clogged Feeding Tube Aspirin 325 mg 08/17/18 10:00 08/20/18 10:00 Aspirin PO 325 mg QDAY LENCHO Administration Atorvastatin Calcium 40 mg 08/14/18 22:00 08/20/18 22:01 Lipitor PO 40 mg QHS LENCHO Administration Dextrose 50 ml 08/13/18 01:34 D50w (25gm) Syringe IV PRN PRN Hypoglycemia Enoxaparin Sodium 40 mg 08/17/18 22:00 08/20/18 22:02 Lovenox SUB-Q 40 mg QDAY@2200 LENCHO Administration Famotidine 20 mg 08/19/18 10:00 08/20/18 22:01 Pepcid PO 20 mg BID LENCHO Administration Hydrophilic Ointment 1 applic 08/13/18 12:21 Vaseline Lip Therapy TP Q2HR PRN Dry Lips Fentanyl Citrate 2,000 mcg in 100 mls @ 3.629 mls/hr 08/14/18 13:00 Fentanyl Drip Premix IV TITR LENCHO Protocol 1 MCG/KG/HR Insulin Glargine 30 units 08/19/18 10:00 08/20/18 10:00 Lantus SUB-Q 30 units DAILY LENCHO Administration Insulin Human Lispro 0 unit 08/13/18 06:00 08/21/18 06:23 Humalog SUB-Q 4 unit Q6HR LENCHO Administration Protocol Levetiracetam 1,000 mg 08/13/18 15:00 08/20/18 22:00 Keppra PO 1,000 mg BID LENCHO Administration Multi-Ingred Cream/Lotion/Oil/Oint 1 applic 08/13/18 12:21 08/17/18 00:41 Artificial Tears Ophth Oint OU 1 applic Q4HR PRN Administration Dry Eye(s) Ondansetron HCl 4 mg 08/13/18 01:34 Zofran IV Q8H PRN Nausea And Vomiting Simple Syrup 15 ml 08/13/18 15:55 Simple Syrup FEEDTUBE PRN PRN Hypoglycemia Simple Syrup 30 ml 08/13/18 15:55 Simple Syrup FEEDTUBE PRN PRN Hypoglycemia Sodium Bicarbonate 325 mg 08/13/18 15:55 Sodium Bicarbonate FEEDTUBE PRN PRN For Clogged Feeding Tube Sodium Chloride 10 ml 08/13/18 10:00 08/20/18 22:02 Sodium Chloride Flush Syringe 10 Ml IV 10 ml BID LENCHO Administration Sodium Chloride 10 ml 08/13/18 01:34 Sodium Chloride Flush Syringe 10 Ml IV PRN PRN LINE FLUSH
--- NOTE | 2018-08-21 07:47 | Progress Note ---
Assessment and Plan Assessment and plan: Patient is a 77 yo man from [facility] with a history of respiratory failure, CVA with tracheostomy and Gtube who presented to [facility] ED following cardiac arrest after being found unresponsive at the [place] [facility]. Time down is unknown per records. The patient is on the vent and unresponsive, all history is obtained from the chart. Patient had multiple episodes of arrest/pulselessness. He has been on the vent since then without any improvement. Per ER notes the patient was bagged via tracheostomy which continued to have low tidal volumes and so the patient with orally intubated after which tidal volumes improved. I spoke with and daughter, Felicita and they believe that he aspirated with a mucus plug that caused the cardiopulmonary arrest not NSTEMI.. Initially, he went to [facility] [place] may 05 to june 05, there was fluid on brain, strokes, they drain the fluid off brain. The trach was placed at [facility] [place] and patient then went to [facility], x 7 weeks (trach was changed where capped was placed), he was doing well, talking and sitting up. Then he went to [facility], August 03 and his oral care was horrible. The trach care was horrible and no suncting done enough. Mouth looking like crusty. August 12, on Friday, he had voice changing and mucus plugging. Cardiopulmonary arrest x 3: Most likely related to mucus plugging >NSTEMI, leading to severe irreversible brain damage: supportive care, CCM and Neurology following. Acute on chronic respiratory failure on mechanical ventilation >96 hours: Trach has been removed when patient orally intubated, continue ventilator management per pulmonology Right pneumothorax, appears to be resolved: Status post chest tube, mgt per pulmonology Anoxic brain injury and status epilepticus poa: Patient was noted to be having seizures, he received Ativan and Keppra, neurology consult appreciated, poor prognosis, poor likelihood of recovery, Hypernatremia/free water deficits, Continue free water via G-tube, sp hypotonic IV solution Acute kidney injury likely due to ATN, poa: Nephrology consult, continue IV fluid, avoid renal toxic agents NSTEMI: treated with IV heparin, asa, statin, no bblocker due to bradycardia, hypotension, Cardiology is following Severe malnutrition: Dietitian consult, continue tube feedings UTI/sepsis: Continue antibiotics, follow-up urine cultures-->no growth x 48 hours Type 2 dm with persistent hyperglycemia: cont insulins and adjust according, on tube feedings Anemia: sp transfusion Urinary retention: continue douglass, do not remove DVT prophylaxis; patient is fully anticoagulated on heparin drip Awaiting NM brain flow scan==>reduced blood flow Next step is replace Trach and d/c back to facility, d/w Dr. Marvin, harinder is scheduled for 08/25/18 at 2pm, Friday is a holiday History Interval history: Patient was seen and examined. Follow-up on current diagnosis of respiratory failure. No overnight events reported to me. Patient intubated, not sedated. Imaging, nursing note, chart, labs and old chart reviewed. Hospitalist Physical - Physical exam Narrative exam: Gen: ill appearing, intubated not sedated, comatose HEENT: NCAT, pupil pinpoint and nonreactive Neck: supple, no adenopathy, no thyromegaly, no JVD CVS/Heart: Regular, normal S1S2, pulses present bilaterally Chest/Lungs: diminished bs bilateral, Symmetrical chest expansion, good air entry bilaterally GI/Abdomen: soft, PEG in place, +bowel sounds, Extermity/Skin: no obvious rash MSK: unresponsive Neuro: unresponsive Psych: unresponsive - Constitutional Vitals: Temp Pulse Resp BP Pulse Ox 99.3 F 60 15 142/51 98 08/20/18 21:43 08/21/18 07:30 08/21/18 07:30 08/21/18 07:30 08/21/18 07:30 General appearance: Present: other (twitching, nonresponsive, intubated) Results - Labs CBC & Chem 7: 08/21/18 04:41 08/21/18 04:41 Labs: Laboratory Last Values WBC 6.6 K/mm3 (4.5-11.0) 08/21/18 04:41 RBC 2.65 M/mm3 (3.65-5.03) L 08/21/18 04:41 Hgb 7.6 gm/dl (11.8-15.2) L 08/21/18 04:41 Hct 23.3 % (35.5-45.6) L 08/21/18 04:41 MCV 88 fl (84-94) 08/21/18 04:41 MCH 29 pg (28-32) 08/21/18 04:41 MCHC 33 % (32-34) 08/21/18 04:41 RDW 19.1 % (13.2-15.2) H 08/21/18 04:41 Plt Count 293 K/mm3 (140-440) 08/21/18 04:41 Lymph % (Auto) 13.6 % (13.4-35.0) 08/14/18 04:03 [place] % (Auto) 6.4 % (0.0-7.3) 08/14/18 04:03 Eos % (Auto) 0.1 % (0.0-4.3) 08/14/18 04:03 Baso % (Auto) 0.5 % (0.0-1.8) 08/14/18 04:03 Lymph # 2.5 K/mm3 (1.2-5.4) 08/14/18 04:03 P[place] # 1.2 K/mm3 (0.0-0.8) H 08/14/18 04:03 Eos # 0.0 K/mm3 (0.0-0.4) 08/14/18 04:03 Baso # 0.1 K/mm3 (0.0-0.1) 08/14/18 04:03 Add Manual Diff Complete 08/12/18 21:44 Total Counted 100 08/12/18 21:44 Seg Neutrophils % 79.4 % (40.0-70.0) H 08/14/18 04:03 Seg Neuts % (Manual) 44.0 % (40.0-70.0) 08/12/18 21:44 0 % 08/12/18 21:44 48.0 % (13.4-35.0) H 08/12/18 21:44 Reactive Lymphs % (Man) 0 % 08/12/18 21:44 2.0 % (0.0-7.3) 08/12/18 21:44 1.0 % (0.0-4.3) 08/12/18 21:44 0 % (0.0-1.8) 08/12/18 21:44 1.0 % 08/12/18 21:44 4.0 % 08/12/18 21:44 0 % 08/12/18 21:44 0 % 08/12/18 21:44 Nucleated RBC % Not Reportable 08/12/18 21:44 Seg Neutrophils # 14.5 K/mm3 (1.8-7.7) H 08/14/18 04:03 Seg Neutrophils # Man 6.8 K/mm3 (1.8-7.7) 08/12/18 21:44 Band Neutrophils # 0.0 K/mm3 08/12/18 21:44 7.4 K/mm3 (1.2-5.4) H 08/12/18 21:44 Abs React Lymphs (Man) 0.0 K/mm3 08/12/18 21:44 0.3 K/mm3 (0.0-0.8) 08/12/18 21:44 0.2 K/mm3 (0.0-0.4) 08/12/18 21:44 0.0 K/mm3 (0.0-0.1) 08/12/18 21:44 0.2 K/mm3 08/12/18 21:44 0.6 K/mm3 08/12/18 21:44 0.0 K/mm3 08/12/18 21:44 Blast Cells # 0.0 K/mm3 08/12/18 21:44 WBC Morphology Not Reportable 08/12/18 21:44 Hypersegmented Neuts Not Reportable 08/12/18 21:44 Hyposegmented Neuts Not Reportable 08/12/18 21:44 Hypogranular Neuts Not Reportable 08/12/18 21:44 Not Reportable 08/12/18 21:44 Not Reportable 08/12/18 21:44 Not Reportable 08/12/18 21:44 Not Reportable 08/12/18 21:44 Not Reportable 08/12/18 21:44 Not Reportable 08/12/18 21:44 Consistent w auto 08/12/18 21:44 Not Reportable 08/12/18 21:44 Plt Clumps, EDTA Not Reportable 08/12/18 21:44 Not Reportable 08/12/18 21:44 Not Reportable 08/12/18 21:44 Not Reportable 08/12/18 21:44 Plt Morphology Comment Not Reportable 08/12/18 21:44 RBC Morphology Not Reportable 08/12/18 21:44 Dimorphic RBCs Not Reportable 08/12/18 21:44 Not Reportable 08/12/18 21:44 Not Reportable 08/12/18 21:44 Not Reportable 08/12/18 21:44 Few 08/12/18 21:44 Not Reportable 08/12/18 21:44 Not Reportable 08/12/18 21:44 Not Reportable 08/12/18 21:44 Not Reportable 08/12/18 21:44 Not Reportable 08/12/18 21:44 Not Reportable 08/12/18 21:44 Not Reportable 08/12/18 21:44 Few 08/12/18 21:44 Not Reportable 08/12/18 21:44 Not Reportable 08/12/18 21:44 Not Reportable 08/12/18 21:44 Not Reportable 08/12/18 21:44 Not Reportable 08/12/18 21:44 Not Reportable 08/12/18 21:44 Few 08/12/18 21:44 Acanthocytes (Spur) Not Reportable 08/12/18 21:44 Rouleaux Not Reportable 08/12/18 21:44 Not Reportable 08/12/18 21:44 Not Reportable 08/12/18 21:44 Not Reportable 08/12/18 21:44 Not Reportable 08/12/18 21:44 Hem Pathologist Commnt No 08/12/18 21:44 PT 16.5 Sec. (12.2-14.9) H 08/13/18 00:47 INR 1.25 (0.87-1.13) H 08/13/18 00:47 APTT 79.0 Sec. (24.2-36.6) H* 08/15/18 06:35 2742.50 ng/mlDDU (0-234) H 08/13/18 20:07 Heparin Anti-Xa Level 0.26 U.I./ml (0.3-0.7) L 08/16/18 20:01 POC ABG pH 7.423 (7.35-7.45) 08/20/18 04:38 POC ABG pCO2 35.8 (35-45) 08/20/18 04:38 POC ABG pO2 140 (80-105) H 08/20/18 04:38 POC ABG HCO3 23.4 (22-26 mml/L) 08/20/18 04:38 POC ABG Total CO2 24 (23-27mmol/L) 08/20/18 04:38 POC ABG O2 Sat 99 08/20/18 04:38 POC ABG Base Excess -1 ((-2) - (+3)mmol/L) 08/20/18 04:38 28 % 08/20/18 04:38 Sodium 150 mmol/L (137-145) H 08/21/18 04:41 Potassium 3.9 mmol/L (3.6-5.0) 08/21/18 04:41 Chloride 117.8 mmol/L (98-107) H 08/21/18 04:41 Carbon Dioxide 27 mmol/L (22-30) 08/21/18 04:41 9 mmol/L 08/21/18 04:41 BUN 37 mg/dL (9-20) H 08/21/18 04:41 1.0 mg/dL (0.8-1.5) 08/21/18 04:41 Estimated GFR > 60 ml/min 08/21/18 04:41 37 % 08/21/18 04:41 Glucose 233 mg/dL (75-100) H 08/21/18 04:41 POC Glucose 262 (70-105) H 08/21/18 06:20 Lactic Acid 2.80 mmol/L (0.7-2.0) H* 08/13/18 12:53 Calcium 7.9 mg/dL (8.4-10.2) L 08/21/18 04:41 Phosphorus 3.90 mg/dL (2.5-4.5) 08/15/18 04:05 Magnesium 2.20 mg/dL (1.7-2.3) 08/15/18 04:05 0.30 mg/dL (0.1-1.2) 08/14/18 04:03 AST 50 units/L (5-40) H 08/14/18 04:03 ALT 55 units/L (7-56) 08/14/18 04:03 219 units/L (35-129) H 08/14/18 04:03 309 units/L (55-170) H 08/13/18 10:10 CK-MB (CK-2) 4.1 ng/mL (0.0-4.0) H 08/13/18 10:10 CK-MB (CK-2) Rel Index 1.3 (0-4) 08/13/18 10:10 0.409 ng/mL (0.00-0.029) H* 08/14/18 04:03 16.90 mg/dL (0.00-1.30) H 08/13/18 12:53 6.2 g/dL (6.3-8.2) L 08/14/18 04:03 1.9 g/dL (3.9-5) L 08/14/18 04:03 0.4 % 08/14/18 04:03 Triglycerides 62 mg/dL (2-149) 08/13/18 00:32 Cholesterol 46 mg/dL (50-199) L 08/13/18 00:32 17 mg/dL (50-130) L 08/13/18 00:32 6 mg/dL (40-59) L 08/13/18 00:32 7.66 % 08/13/18 00:32 Yellow (Yellow) 08/13/18 00:50 Cloudy (Clear) 08/13/18 00:50 7.0 (5.0-7.0) 08/13/18 00:50 Ur Specific Mio 1.025 (1.003-1.030) 08/13/18 00:50 100 mg/dl mg/dL (Negative) 08/13/18 00:50 50 mg/dL (Negative) 08/13/18 00:50 Tr mg/dL (Negative) 08/13/18 00:50 Mod (Negative) 08/13/18 00:50 Neg (Negative) 08/13/18 00:50 Neg (Negative) 08/13/18 00:50 < 2.0 mg/dL (<2.0) 08/13/18 00:50 Ur Leukocyte Esterase Mod (Negative) 08/13/18 00:50 > 182.0 /HPF (0.0-6.0) H 08/13/18 00:50 > 182.0 /HPF (0.0-6.0) 08/13/18 00:50 2+ /HPF (Negative) 08/13/18 00:50 3+ /HPF 08/13/18 00:50 None seen (None Seen) 08/14/18 17:20 60.9 mg/dL (0.1-20.0) H 08/14/18 17:20 32 mmol/L 08/14/18 17:20 64 mg/dL (5-11.8) H 08/14/18 17:20 Presumptive negative 08/12/18 21:30 Presumptive negative 08/12/18 21:30 Ur Barbiturates Screen Presumptive negative 08/12/18 21:30 Ur Phencyclidine Scrn Presumptive negative 08/12/18 21:30 Ur Amphetamines Screen Presumptive negative 08/12/18 21:30 U Benzodiazepines Scrn Presumptive negative 08/12/18 21:30 Presumptive negative 08/12/18 21:30 U Marijuana (THC) Screen Presumptive negative 08/12/18 21:30 Disclamer 08/12/18 21:30 Blood Type O POSITIVE 08/15/18 15:31 Antibody Screen Negative 08/15/18 15:31 Crossmatch See Detail 08/15/18 15:31 Active Medications - Current Medications Current Medications: Generic Name Dose Route Start Last Admin Trade Name Freq PRN Reason Stop Dose Admin Acetaminophen 650 mg 08/13/18 11:40 08/13/18 16:09 Tylenol PO 650 mg Q6H PRN Administration Fever >101 Lipase/Protease/Amylase 1 each 08/13/18 15:[address] 10,500 Unit FEEDTUBE PRN PRN For Clogged Feeding Tube Aspirin 325 mg 08/17/18 10:00 08/20/18 10:00 Aspirin PO 325 mg QDAY LENCHO Administration Atorvastatin Calcium 40 mg 08/14/18 22:00 08/20/18 22:01 Lipitor PO 40 mg QHS LENCHO Administration Dextrose 50 ml 08/13/18 01:34 D50w (25gm) Syringe IV PRN PRN Hypoglycemia Enoxaparin Sodium 40 mg 08/17/18 22:00 08/20/18 22:02 Lovenox SUB-Q 40 mg QDAY@2200 LENCHO Administration Famotidine 20 mg 08/19/18 10:00 08/20/18 22:01 Pepcid PO 20 mg BID LENCHO Administration Hydrophilic Ointment 1 applic 08/13/18 12:21 Vaseline Lip Therapy TP Q2HR PRN Dry Lips Fentanyl Citrate 2,000 mcg in 100 mls @ 3.629 mls/hr 08/14/18 13:00 Fentanyl Drip Premix IV TITR LENCHO Protocol 1 MCG/KG/HR Insulin Glargine 30 units 08/19/18 10:00 08/20/18 10:00 Lantus SUB-Q 30 units DAILY LENCHO Administration Insulin Human Lispro 0 unit 08/13/18 06:00 08/21/18 06:23 Humalog SUB-Q 4 unit Q6HR LENCHO Administration Protocol Levetiracetam 1,000 mg 08/13/18 15:00 08/20/18 22:00 Keppra PO 1,000 mg BID LENCHO Administration Multi-Ingred Cream/Lotion/Oil/Oint 1 applic 08/13/18 12:21 08/17/18 00:41 Artificial Tears Ophth Oint OU 1 applic Q4HR PRN Administration Dry Eye(s) Ondansetron HCl 4 mg 08/13/18 01:34 Zofran IV Q8H PRN Nausea And Vomiting Simple Syrup 15 ml 08/13/18 15:55 Simple Syrup FEEDTUBE PRN PRN Hypoglycemia Simple Syrup 30 ml 08/13/18 15:55 Simple Syrup FEEDTUBE PRN PRN Hypoglycemia Sodium Bicarbonate 325 mg 08/13/18 15:55 Sodium Bicarbonate FEEDTUBE PRN PRN For Clogged Feeding Tube Sodium Chloride 10 ml 08/13/18 10:00 08/20/18 22:02 Sodium Chloride Flush Syringe 10 Ml IV 10 ml BID LENCHO Administration Sodium Chloride 10 ml 08/13/18 01:34 Sodium Chloride Flush Syringe 10 Ml IV PRN PRN LINE FLUSH Nutrition/Malnutrition Assess - Dietary Evaluation Nutrition/Malnutrition Findings: Nutrition Notes Start: 08/13/18 15:41 Freq: Status: Active Protocol: Document 08/17/18 15:02 RM (Rec: 08/17/18 15:08 RM [id number]) Nutrition Notes Initial or Follow up Reassessment Current Diagnosis Acute Kidney Injury,Diabetes Other Pertinent Diagnosis UTI, Hx CVA, PEG, Sacral PU, Multiple PU, Anoxic brain injury,R pneumothorax Current Diet Vital 1.2 at 60 ml/hr Labs/Tests Na 141 Pertinent Medications Reviewed Height 5 ft 8 in Weight 72.575 kg [place] Body Weight (kg) 70.00 BMI 24.3 Subjective/Other Information Observed Vital 1.2 infusing at 60 ml/hr. Per nurse pt is tolerating TF. Percent of energy/protein needs met: 100%/100% Burn Absent Trauma Absent #1 Nutrition Diagnosis Inadequate oral intake Diagnosis Progress(for reassessment Continues documentation) Is patient on ventilator? Yes Is Patient Ambulatory and/or Out of Bed No REE-([facility]-confined to bed) [phone] Calculation Used for Recommendations [facility] Additional Notes Protein Needs: 87-145g (1.2-2g /kg) Fluid Needs: 1 ml/kcal Nutrition Intervention Nutrition Support: Vital 1.2 at 60 ml/hr. Water flush of 100 mls q 4 hrs . Kcal 1,728 Protein (gm) 108 Fiber (gm) 7 Goal #1 Continue to meet at least 80% of calorie and protein needs via TF Anticipated Discharge Needs: TF Follow-Up By: 08/25/18 Additional Comments Follow for TF tolerance
[2018-08-21] MEDS: LANTUS SUB-Q SCH (10:10)
[2018-08-21] MEDS: SODIUM CHLORIDE FLUSH SYRINGE 10 ML IV SCH ×2 (10:32→21:07)
[2018-08-21] MEDS: KEPPRA PO SCH ×2 (10:32→21:05)
[2018-08-21] MEDS: PEPCID PO SCH ×2 (10:32→21:06)
[2018-08-21] MEDS: ASPIRIN PO SCH (10:32)
[2018-08-21] MEDS ORDERED: LANTUS SUB-Q ONE (11:00)
--- NOTE | 2018-08-21 11:54 | Progress Note ---
Assessment and Plan Acute hypoxemic respiratory failure on chronic on MVS . Status post cardiac arrest. Seizure disorder with breakthrough seizures. History of diabetes. History of cerebrovascular accident. Oropharyngeal dysphagia. History of seizures. -Increase free water flushes for hypernatremia - Continue MVS - Lung protective strategies - VAP bundle addressed - SBTs as tolerated -Supportive transfusions, to keep HgB >7g/dL - Continue Keppra for seizures with prn ativan IV for breakthrough - Continue Stress ulcer & VTE prophylaxis - Continue bronchodilators with pulmonary hygiene per RT - Continue to wean supplemental oxygen to keep O2 sats 88-90% - Chronic home medications - Replete electrolytes as indicated - Monitor renal indices closely - Avoid nephrotoxic agents, adjust all medications for CrCL - Strict intake and output monitoring - Continue enteral nutrition as tolerated - Continue accuchecks with glycemic control - Target glucose of 140-180 mg/dL - Maintenance of sleep -wake cycle - Mobility as tolerated by hemodynamics - Influenza and pneumonia vaccination per protocol ....discussed with RT/RN in rounds -Updated his at the bedside -Trachesotomy placement early next week PROGNOSIS: GUARDED -POOR CONDITION: CRITICAL CODE STATUS: FULL CODE The high probability of a clinically significant, sudden or life-threatening deterioration of the [respiratory, neurology, renal] system(s) required my full and direct attention, intervention and personal management. The aggregate critical care time was [31] minutes without overlap. Time includes spent on; [x] Data Review and interpretation [x] Patient assessment and monitoring of vital signs [x] Documentation [x] Medication orders and management Subjective Date of service: 08/21/18 Principal diagnosis: Acute hypoxemic resp failure; S/P cardiac arrest; Seizures; DM II; H/O CVA Interval history: Patient is seen today for: Acute hypoxemic respiratory failure on chronic; Status post cardiac arrest; Seizure disorder with breakthrough seizures; History of diabetes; History of cerebrovascular accident; Oropharyngeal dysphagia; History of seizures. Seen and examined at bedside; 24hour events reviewed; nursing and respiratory care staff consulted; no adverse overnight events reported to me; remains on MVS; AMS is persistent; now tolerating some SBT's; no emesis or overt aspiration; no fevers or chills reported and no seizure activity For trachesotomy, at the bedside Objective Vital Signs - 12hr 08/21/18 08/21/18 08/21/18 00:00 00:30 01:00 Temperature Pulse Rate 62 58 L 60 Pulse Rate [ 62 From Monitor] Respiratory 13 13 14 Rate Blood Pressure 139/53 137/54 141/54 O2 Sat by Pulse 100 100 100 Oximetry 08/21/18 08/21/18 08/21/18 01:30 02:00 02:30 Temperature Pulse Rate 58 L 60 61 Pulse Rate [ From Monitor] Respiratory 13 12 13 Rate Blood Pressure 141/54 144/55 145/58 O2 Sat by Pulse 100 100 100 Oximetry 08/21/18 08/21/18 08/21/18 03:00 03:24 03:30 Temperature Pulse Rate 62 60 58 L Pulse Rate [ From Monitor] Respiratory 14 12 Rate Blood Pressure 145/58 143/55 143/55 O2 Sat by Pulse 100 100 100 Oximetry 08/21/18 08/21/18 08/21/18 04:00 04:30 05:00 Temperature Pulse Rate 60 59 L 61 Pulse Rate [ 60 From Monitor] Respiratory 16 21 16 Rate Blood Pressure 141/53 147/58 147/58 O2 Sat by Pulse 100 100 100 Oximetry 08/21/18 08/21/18 08/21/18 05:30 06:00 06:30 Temperature Pulse Rate 60 60 61 Pulse Rate [ From Monitor] Respiratory 14 15 13 Rate Blood Pressure 151/56 137/53 141/50 O2 Sat by Pulse 100 100 100 Oximetry 08/21/18 08/21/18 08/21/18 07:00 07:30 08:00 Temperature 99.3 F Pulse Rate 62 60 62 Pulse Rate [ 60 From Monitor] Respiratory 15 15 15 Rate Blood Pressure 137/53 142/51 140/56 O2 Sat by Pulse 98 97 Oximetry 08/21/18 08/21/18 08/21/18 08:30 09:00 09:30 Temperature Pulse Rate 64 61 66 Pulse Rate [ From Monitor] Respiratory 15 14 15 Rate Blood Pressure 140/56 142/56 148/56 O2 Sat by Pulse 99 100 100 Oximetry 08/21/18 08/21/18 08/21/18 10:00 10:04 10:20 Temperature Pulse Rate 64 63 61 Pulse Rate [ From Monitor] Respiratory 13 14 Rate Blood Pressure 145/55 145/55 143/59 O2 Sat by Pulse 99 100 100 Oximetry 08/21/18 08/21/18 08/21/18 10:30 11:00 11:30 Temperature Pulse Rate 63 62 60 Pulse Rate [ From Monitor] Respiratory 14 13 14 Rate Blood Pressure 143/59 147/59 147/59 O2 Sat by Pulse 99 99 100 Oximetry Constitutional: no acute distress, other (Elderly looking AAM, normocephalic resting in bed on MVS) Eyes: non-icteric ENT: oropharynx moist, other (ETT 23-24 cm JOVI) Neck: supple, no lymphadenopathy, no JVD, other (no thyromegaly) Effort: mildly labored Ascultation: Bilateral: diminished breath sounds, rhonchi Percussion: Bilateral: not dull Cardiovascular: regular rate and rhythm, other (S1,S2, no murmurs, gallops or rubs) Gastrointestinal: normoactive bowel sounds, soft, non-tender, non-distended Integumentary: normal Extremities: no cyanosis, pulses normal, no ischemia or petechiae, edema (trace ) Neurologic: unable to assess, other (slight pupillary constriction to light) Psychiatric: other (unable to assess) CBC and BMP: 08/21/18 04:41 08/22/18 12:15 ABG, PT/INR, D-dimer: ABG POC ABG pH 7.423 (7.35-7.45) 08/20/18 04:38 POC ABG pCO2 35.8 (35-45) 08/20/18 04:38 POC ABG pO2 140 (80-105) H 08/20/18 04:38 POC ABG HCO3 23.4 (22-26 mml/L) 08/20/18 04:38 POC ABG Total CO2 24 (23-27mmol/L) 08/20/18 04:38 POC ABG O2 Sat 99 08/20/18 04:38 PT/INR, D-dimer PT 16.5 Sec. (12.2-14.9) H 08/13/18 00:47 INR 1.25 (0.87-1.13) H 08/13/18 00:47 2742.50 ng/mlDDU (0-234) H 08/13/18 20:07 Abnormal lab findings: Abnormal Labs 08/12/18 08/12/18 08/12/18 21:44 21:44 21:44 WBC 15.5 H RBC 3.12 L Hgb 8.8 L Hct 28.9 L MCHC 31 L RDW 19.5 H [place] # Seg Neutrophils % Lymphocytes % (Manual) 48.0 H Seg Neutrophils # Lymphocytes # (Manual) 7.4 H PT 17.8 H INR 1.37 H APTT D-Dimer Heparin Anti-Xa Level POC ABG pH POC ABG pCO2 POC ABG pO2 Sodium 159 H Potassium Chloride 118.5 H Carbon Dioxide BUN 34 H Creatinine Glucose 161 H POC Glucose Lactic Acid Calcium Magnesium AST Alkaline Phosphatase Total Creatine Kinase CK-MB (CK-2) Troponin T 0.105 H* C-Reactive Protein Total Protein Albumin Cholesterol LDL Cholesterol Direct HDL Cholesterol Urine WBC (Auto) Urine Creatinine Urine Total Protein Crossmatch 08/13/18 08/13/18 08/13/18 00:32 00:47 00:47 WBC RBC Hgb 9.2 L Hct 29.6 L MCHC RDW [place] # Seg Neutrophils % Lymphocytes % (Manual) Seg Neutrophils # Lymphocytes # (Manual) PT 16.5 H INR 1.25 H APTT 37.3 H D-Dimer Heparin Anti-Xa Level POC ABG pH POC ABG pCO2 POC ABG pO2 Sodium Potassium Chloride Carbon Dioxide BUN Creatinine Glucose POC Glucose Lactic Acid Calcium Magnesium AST Alkaline Phosphatase Total Creatine Kinase 211 H CK-MB (CK-2) 7.7 H Troponin T 0.169 H* D C-Reactive Protein Total Protein Albumin Cholesterol 46 L LDL Cholesterol Direct 17 L HDL Cholesterol 6 L Urine WBC (Auto) Urine Creatinine Urine Total Protein Crossmatch 08/13/18 08/13/18 08/13/18 00:50 02:25 05:34 WBC RBC Hgb Hct MCHC RDW [place] # Seg Neutrophils % Lymphocytes % (Manual) Seg Neutrophils # Lymphocytes # (Manual) PT INR APTT D-Dimer Heparin Anti-Xa Level POC ABG pH 7.503 H POC ABG pCO2 POC ABG pO2 253 H Sodium Potassium Chloride Carbon Dioxide BUN Creatinine Glucose POC Glucose Lactic Acid Calcium Magnesium AST Alkaline Phosphatase Total Creatine Kinase 311 H CK-MB (CK-2) 10.4 H Troponin T 0.283 H* D C-Reactive Protein Total Protein Albumin Cholesterol LDL Cholesterol Direct HDL Cholesterol Urine WBC (Auto) > 182.0 H Urine Creatinine Urine Total Protein Crossmatch 08/13/18 08/13/18 08/13/18 06:35 10:10 10:10 WBC RBC Hgb Hct MCHC RDW [place] # Seg Neutrophils % Lymphocytes % (Manual) Seg Neutrophils # Lymphocytes # (Manual) PT INR APTT D-Dimer Heparin Anti-Xa Level POC ABG pH 7.554 H POC ABG pCO2 33.5 L POC ABG pO2 220 H Sodium 158 H Potassium Chloride 117.1 H Carbon Dioxide BUN 53 H Creatinine 2.0 H Glucose 247 H POC Glucose Lactic Acid Calcium 8.2 L Magnesium AST Alkaline Phosphatase Total Creatine Kinase 309 H CK-MB (CK-2) 4.1 H Troponin T 0.470 H* D C-Reactive Protein Total Protein Albumin Cholesterol LDL Cholesterol Direct HDL Cholesterol Urine WBC (Auto) Urine Creatinine Urine Total Protein Crossmatch 08/13/18 08/13/18 08/13/18 12:53 12:53 17:55 WBC RBC Hgb Hct MCHC RDW [place] # Seg Neutrophils % Lymphocytes % (Manual) Seg Neutrophils # Lymphocytes # (Manual) PT INR APTT D-Dimer Heparin Anti-Xa Level POC ABG pH POC ABG pCO2 POC ABG pO2 Sodium Potassium Chloride Carbon Dioxide BUN Creatinine Glucose POC Glucose 308 H Lactic Acid 2.80 H* Calcium Magnesium 2.50 H AST Alkaline Phosphatase Total Creatine Kinase CK-MB (CK-2) Troponin T C-Reactive Protein 16.90 H Total Protein Albumin Cholesterol LDL Cholesterol Direct HDL Cholesterol Urine WBC (Auto) Urine Creatinine Urine Total Protein Crossmatch 08/13/18 08/13/18 08/13/18 20:07 21:16 23:17 WBC RBC Hgb Hct MCHC RDW [place] # Seg Neutrophils % Lymphocytes % (Manual) Seg Neutrophils # Lymphocytes # (Manual) PT INR APTT D-Dimer 2742.50 H Heparin Anti-Xa Level POC ABG pH 7.483 H POC ABG pCO2 30.8 L POC ABG pO2 150 H Sodium Potassium Chloride Carbon Dioxide BUN Creatinine Glucose POC Glucose 245 H Lactic Acid Calcium Magnesium AST Alkaline Phosphatase Total Creatine Kinase CK-MB (CK-2) Troponin T C-Reactive Protein Total Protein Albumin Cholesterol LDL Cholesterol Direct HDL Cholesterol Urine WBC (Auto) Urine Creatinine Urine Total Protein Crossmatch 08/14/18 08/14/18 08/14/18 04:03 04:03 04:56 WBC 18.2 H RBC 2.62 L Hgb 7.3 L Hct 24.5 L MCHC RDW 18.9 H [place] # 1.2 H Seg Neutrophils % 79.4 H Lymphocytes % (Manual) Seg Neutrophils # 14.5 H Lymphocytes # (Manual) PT INR APTT D-Dimer Heparin Anti-Xa Level POC ABG pH POC ABG pCO2 33.5 L POC ABG pO2 153 H Sodium 152 H Potassium 3.4 L Chloride 113.8 H Carbon Dioxide BUN 72 H Creatinine 2.7 H Glucose 239 H POC Glucose Lactic Acid Calcium 7.6 L Magnesium AST 50 H Alkaline Phosphatase 219 H Total Creatine Kinase CK-MB (CK-2) Troponin T 0.409 H* C-Reactive Protein Total Protein 6.2 L Albumin 1.9 L Cholesterol LDL Cholesterol Direct HDL Cholesterol Urine WBC (Auto) Urine Creatinine Urine Total Protein Crossmatch 08/14/18 08/14/18 08/14/18 05:18 13:38 15:35 WBC RBC Hgb Hct MCHC RDW [place] # Seg Neutrophils % Lymphocytes % (Manual) Seg Neutrophils # Lymphocytes # (Manual) PT INR APTT D-Dimer Heparin Anti-Xa Level POC ABG pH POC ABG pCO2 POC ABG pO2 Sodium 150 H Potassium 3.2 L Chloride 114.5 H Carbon Dioxide BUN 69 H Creatinine 2.3 H Glucose 247 H POC Glucose 242 H 296 H Lactic Acid Calcium 7.2 L Magnesium AST Alkaline Phosphatase Total Creatine Kinase CK-MB (CK-2) Troponin T C-Reactive Protein Total Protein Albumin Cholesterol LDL Cholesterol Direct HDL Cholesterol Urine WBC (Auto) Urine Creatinine Urine Total Protein Crossmatch 08/14/18 08/14/18 08/14/18 17:01 17:20 23:47 WBC RBC Hgb Hct MCHC RDW [place] # Seg Neutrophils % Lymphocytes % (Manual) Seg Neutrophils # Lymphocytes # (Manual) PT INR APTT D-Dimer Heparin Anti-Xa Level POC ABG pH POC ABG pCO2 POC ABG pO2 Sodium Potassium Chloride Carbon Dioxide BUN Creatinine Glucose POC Glucose 261 H 280 H Lactic Acid Calcium Magnesium AST Alkaline Phosphatase Total Creatine Kinase CK-MB (CK-2) Troponin T C-Reactive Protein Total Protein Albumin Cholesterol LDL Cholesterol Direct HDL Cholesterol Urine WBC (Auto) Urine Creatinine 60.9 H Urine Total Protein 64 H Crossmatch 08/15/18 08/15/18 08/15/18 04:05 04:05 04:05 WBC RBC Hgb 6.3 L Hct 19.7 L* MCHC RDW [place] # Seg Neutrophils % Lymphocytes % (Manual) Seg Neutrophils # Lymphocytes # (Manual) PT INR APTT D-Dimer Heparin Anti-Xa Level 0.17 L POC ABG pH POC ABG pCO2 POC ABG pO2 Sodium 146 H Potassium 3.0 L Chloride 110.6 H Carbon Dioxide BUN 64 H Creatinine 2.2 H Glucose 231 H POC Glucose Lactic Acid Calcium 7.1 L Magnesium AST Alkaline Phosphatase Total Creatine Kinase CK-MB (CK-2) Troponin T C-Reactive Protein Total Protein Albumin Cholesterol LDL Cholesterol Direct HDL Cholesterol Urine WBC (Auto) Urine Creatinine Urine Total Protein Crossmatch 08/15/18 08/15/18 08/15/18 05:21 05:26 06:35 WBC RBC Hgb Hct MCHC RDW [place] # Seg Neutrophils % Lymphocytes % (Manual) Seg Neutrophils # Lymphocytes # (Manual) PT INR APTT 79.0 H* D-Dimer Heparin Anti-Xa Level POC ABG pH 7.494 H POC ABG pCO2 POC ABG pO2 155 H Sodium Potassium Chloride Carbon Dioxide BUN Creatinine Glucose POC Glucose 271 H Lactic Acid Calcium Magnesium AST Alkaline Phosphatase Total Creatine Kinase CK-MB (CK-2) Troponin T C-Reactive Protein Total Protein Albumin Cholesterol LDL Cholesterol Direct HDL Cholesterol Urine WBC (Auto) Urine Creatinine Urine Total Protein Crossmatch 08/15/18 08/15/18 08/15/18 12:10 15:31 17:27 WBC RBC Hgb Hct MCHC RDW [place] # Seg Neutrophils % Lymphocytes % (Manual) Seg Neutrophils # Lymphocytes # (Manual) PT INR APTT D-Dimer Heparin Anti-Xa Level POC ABG pH POC ABG pCO2 POC ABG pO2 Sodium Potassium Chloride Carbon Dioxide BUN Creatinine Glucose POC Glucose 301 H 287 H Lactic Acid Calcium Magnesium AST Alkaline Phosphatase Total Creatine Kinase CK-MB (CK-2) Troponin T C-Reactive Protein Total Protein Albumin Cholesterol LDL Cholesterol Direct HDL Cholesterol Urine WBC (Auto) Urine Creatinine Urine Total Protein Crossmatch See Detail 08/15/18 08/15/18 08/16/18 21:41 23:45 04:13 WBC RBC Hgb Hct MCHC RDW [place] # Seg Neutrophils % Lymphocytes % (Manual) Seg Neutrophils # Lymphocytes # (Manual) PT INR APTT D-Dimer Heparin Anti-Xa Level 0.19 L POC ABG pH POC ABG pCO2 32.1 L POC ABG pO2 107 H Sodium Potassium Chloride Carbon Dioxide BUN Creatinine Glucose POC Glucose 163 H Lactic Acid Calcium Magnesium AST Alkaline Phosphatase Total Creatine Kinase CK-MB (CK-2) Troponin T C-Reactive Protein Total Protein Albumin Cholesterol LDL Cholesterol Direct HDL Cholesterol Urine WBC (Auto) Urine Creatinine Urine Total Protein Crossmatch 08/16/18 08/16/18 08/16/18 04:50 05:28 11:30 WBC RBC 2.67 L Hgb 8.1 L Hct 23.4 L MCHC 35 H RDW 18.3 H [place] # Seg Neutrophils % Lymphocytes % (Manual) Seg Neutrophils # Lymphocytes # (Manual) PT INR APTT D-Dimer Heparin Anti-Xa Level 0.19 L POC ABG pH POC ABG pCO2 POC ABG pO2 Sodium Potassium Chloride Carbon Dioxide BUN Creatinine Glucose POC Glucose 141 H Lactic Acid Calcium Magnesium AST Alkaline Phosphatase Total Creatine Kinase CK-MB (CK-2) Troponin T C-Reactive Protein Total Protein Albumin Cholesterol LDL Cholesterol Direct HDL Cholesterol Urine WBC (Auto) Urine Creatinine Urine Total Protein Crossmatch 08/16/18 08/16/18 08/16/18 11:30 12:00 12:01 WBC RBC Hgb Hct MCHC RDW [place] # Seg Neutrophils % Lymphocytes % (Manual) Seg Neutrophils # Lymphocytes # (Manual) PT INR APTT D-Dimer Heparin Anti-Xa Level 0.15 L POC ABG pH POC ABG pCO2 POC ABG pO2 Sodium Potassium Chloride 107.8 H Carbon Dioxide 21 L BUN 47 H Creatinine 1.6 H Glucose 221 H POC Glucose 267 H Lactic Acid Calcium 6.9 L Magnesium AST Alkaline Phosphatase Total Creatine Kinase CK-MB (CK-2) Troponin T C-Reactive Protein Total Protein Albumin Cholesterol LDL Cholesterol Direct HDL Cholesterol Urine WBC (Auto) Urine Creatinine Urine Total Protein Crossmatch 08/16/18 08/16/18 08/16/18 17:23 20:01 23:13 WBC RBC Hgb Hct MCHC RDW [place] # Seg Neutrophils % Lymphocytes % (Manual) Seg Neutrophils # Lymphocytes # (Manual) PT INR APTT D-Dimer Heparin Anti-Xa Level 0.26 L POC ABG pH POC ABG pCO2 POC ABG pO2 Sodium Potassium Chloride Carbon Dioxide BUN Creatinine Glucose POC Glucose 245 H 256 H Lactic Acid Calcium Magnesium AST Alkaline Phosphatase Total Creatine Kinase CK-MB (CK-2) Troponin T C-Reactive Protein Total Protein Albumin Cholesterol LDL Cholesterol Direct HDL Cholesterol Urine WBC (Auto) Urine Creatinine Urine Total Protein Crossmatch 05/20/19 05/20/19 05/20/19 04:29 04:55 05:34 WBC RBC Hgb 8.2 L Hct 24.3 L MCHC RDW [place] # Seg Neutrophils % Lymphocytes % (Manual) Seg Neutrophils # Lymphocytes # (Manual) PT INR APTT D-Dimer Heparin Anti-Xa Level POC ABG pH POC ABG pCO2 32.4 L POC ABG pO2 108 H Sodium Potassium Chloride Carbon Dioxide BUN Creatinine Glucose POC Glucose 268 H Lactic Acid Calcium Magnesium AST Alkaline Phosphatase Total Creatine Kinase CK-MB (CK-2) Troponin T C-Reactive Protein Total Protein Albumin Cholesterol LDL Cholesterol Direct HDL Cholesterol Urine WBC (Auto) Urine Creatinine Urine Total Protein Crossmatch 08/17/18 08/17/18 08/17/18 11:54 13:44 17:24 WBC RBC Hgb Hct MCHC RDW [place] # Seg Neutrophils % Lymphocytes % (Manual) Seg Neutrophils # Lymphocytes # (Manual) PT INR APTT D-Dimer Heparin Anti-Xa Level POC ABG pH POC ABG pCO2 32.7 L POC ABG pO2 142 H Sodium Potassium Chloride Carbon Dioxide BUN Creatinine Glucose POC Glucose 295 H 283 H Lactic Acid Calcium Magnesium AST Alkaline Phosphatase Total Creatine Kinase CK-MB (CK-2) Troponin T C-Reactive Protein Total Protein Albumin Cholesterol LDL Cholesterol Direct HDL Cholesterol Urine WBC (Auto) Urine Creatinine Urine Total Protein Crossmatch 08/18/18 08/18/18 08/18/18 00:05 00:59 04:15 WBC RBC Hgb Hct MCHC RDW [place] # Seg Neutrophils % Lymphocytes % (Manual) Seg Neutrophils # Lymphocytes # (Manual) PT INR APTT D-Dimer Heparin Anti-Xa Level POC ABG pH POC ABG pCO2 POC ABG pO2 115 H Sodium Potassium Chloride Carbon Dioxide BUN Creatinine Glucose POC Glucose 247 H 251 H Lactic Acid Calcium Magnesium AST Alkaline Phosphatase Total Creatine Kinase CK-MB (CK-2) Troponin T C-Reactive Protein Total Protein Albumin Cholesterol LDL Cholesterol Direct HDL Cholesterol Urine WBC (Auto) Urine Creatinine Urine Total Protein Crossmatch 08/18/18 08/18/18 08/18/18 05:02 12:20 17:51 WBC RBC Hgb Hct MCHC RDW [place] # Seg Neutrophils % Lymphocytes % (Manual) Seg Neutrophils # Lymphocytes # (Manual) PT INR APTT D-Dimer Heparin Anti-Xa Level POC ABG pH POC ABG pCO2 POC ABG pO2 Sodium Potassium Chloride Carbon Dioxide BUN Creatinine Glucose POC Glucose 282 H 209 H 261 H Lactic Acid Calcium Magnesium AST Alkaline Phosphatase Total Creatine Kinase CK-MB (CK-2) Troponin T C-Reactive Protein Total Protein Albumin Cholesterol LDL Cholesterol Direct HDL Cholesterol Urine WBC (Auto) Urine Creatinine Urine Total Protein Crossmatch 08/18/18 08/19/18 08/19/18 23:30 04:54 05:16 WBC RBC 2.62 L Hgb 7.5 L Hct 23.1 L MCHC RDW 18.1 H [place] # Seg Neutrophils % Lymphocytes % (Manual) Seg Neutrophils # Lymphocytes # (Manual) PT INR APTT D-Dimer Heparin Anti-Xa Level POC ABG pH POC ABG pCO2 POC ABG pO2 58 L Sodium Potassium Chloride Carbon Dioxide BUN Creatinine Glucose POC Glucose 231 H Lactic Acid Calcium Magnesium AST Alkaline Phosphatase Total Creatine Kinase CK-MB (CK-2) Troponin T C-Reactive Protein Total Protein Albumin Cholesterol LDL Cholesterol Direct HDL Cholesterol Urine WBC (Auto) Urine Creatinine Urine Total Protein Crossmatch 08/19/18 08/19/18 08/19/18 05:16 05:40 11:56 WBC RBC Hgb Hct MCHC RDW [place] # Seg Neutrophils % Lymphocytes % (Manual) Seg Neutrophils # Lymphocytes # (Manual) PT INR APTT D-Dimer Heparin Anti-Xa Level POC ABG pH POC ABG pCO2 POC ABG pO2 Sodium 152 H D Potassium Chloride 118.7 H Carbon Dioxide BUN 38 H Creatinine Glucose 220 H POC Glucose 227 H 213 H Lactic Acid Calcium 8.1 L D Magnesium AST Alkaline Phosphatase Total Creatine Kinase CK-MB (CK-2) Troponin T C-Reactive Protein Total Protein Albumin Cholesterol LDL Cholesterol Direct HDL Cholesterol Urine WBC (Auto) Urine Creatinine Urine Total Protein Crossmatch 08/19/18 08/19/18 08/20/18 18:37 23:32 04:38 WBC RBC Hgb Hct MCHC RDW [place] # Seg Neutrophils % Lymphocytes % (Manual) Seg Neutrophils # Lymphocytes # (Manual) PT INR APTT D-Dimer Heparin Anti-Xa Level POC ABG pH POC ABG pCO2 POC ABG pO2 140 H Sodium Potassium Chloride Carbon Dioxide BUN Creatinine Glucose POC Glucose 227 H 245 H Lactic Acid Calcium Magnesium AST Alkaline Phosphatase Total Creatine Kinase CK-MB (CK-2) Troponin T C-Reactive Protein Total Protein Albumin Cholesterol LDL Cholesterol Direct HDL Cholesterol Urine WBC (Auto) Urine Creatinine Urine Total Protein Crossmatch 08/20/18 08/20/18 08/20/18 05:31 05:37 05:37 WBC RBC 2.60 L Hgb 7.5 L Hct 22.9 L MCHC RDW 18.4 H [place] # Seg Neutrophils % Lymphocytes % (Manual) Seg Neutrophils # Lymphocytes # (Manual) PT INR APTT D-Dimer Heparin Anti-Xa Level POC ABG pH POC ABG pCO2 POC ABG pO2 Sodium 150 H Potassium Chloride 115.6 H Carbon Dioxide BUN 38 H Creatinine Glucose 276 H POC Glucose 266 H Lactic Acid Calcium 7.9 L Magnesium AST Alkaline Phosphatase Total Creatine Kinase CK-MB (CK-2) Troponin T C-Reactive Protein Total Protein Albumin Cholesterol LDL Cholesterol Direct HDL Cholesterol Urine WBC (Auto) Urine Creatinine Urine Total Protein Crossmatch 08/20/18 08/20/18 08/20/18 14:01 18:20 23:11 WBC RBC Hgb Hct MCHC RDW [place] # Seg Neutrophils % Lymphocytes % (Manual) Seg Neutrophils # Lymphocytes # (Manual) PT INR APTT D-Dimer Heparin Anti-Xa Level POC ABG pH POC ABG pCO2 POC ABG pO2 Sodium Potassium Chloride Carbon Dioxide BUN Creatinine Glucose POC Glucose 305 H 271 H 218 H Lactic Acid Calcium Magnesium AST Alkaline Phosphatase Total Creatine Kinase CK-MB (CK-2) Troponin T C-Reactive Protein Total Protein Albumin Cholesterol LDL Cholesterol Direct HDL Cholesterol Urine WBC (Auto) Urine Creatinine Urine Total Protein Crossmatch 08/21/18 08/21/18 08/21/18 04:41 04:41 06:20 WBC RBC 2.65 L Hgb 7.6 L Hct 23.3 L MCHC RDW 19.1 H [place] # Seg Neutrophils % Lymphocytes % (Manual) Seg Neutrophils # Lymphocytes # (Manual) PT INR APTT D-Dimer Heparin Anti-Xa Level POC ABG pH POC ABG pCO2 POC ABG pO2 Sodium 150 H Potassium Chloride 117.8 H Carbon Dioxide BUN 37 H Creatinine Glucose 233 H POC Glucose 262 H Lactic Acid Calcium 7.9 L Magnesium AST Alkaline Phosphatase Total Creatine Kinase CK-MB (CK-2) Troponin T C-Reactive Protein Total Protein Albumin Cholesterol LDL Cholesterol Direct HDL Cholesterol Urine WBC (Auto) Urine Creatinine Urine Total Protein Crossmatch 08/21/18 10:18 WBC RBC Hgb Hct MCHC RDW [place] # Seg Neutrophils % Lymphocytes % (Manual) Seg Neutrophils # Lymphocytes # (Manual) PT INR APTT D-Dimer Heparin Anti-Xa Level POC ABG pH POC ABG pCO2 POC ABG pO2 Sodium Potassium Chloride Carbon Dioxide BUN Creatinine Glucose POC Glucose 256 H Lactic Acid Calcium Magnesium AST Alkaline Phosphatase Total Creatine Kinase CK-MB (CK-2) Troponin T C-Reactive Protein Total Protein Albumin Cholesterol LDL Cholesterol Direct HDL Cholesterol Urine WBC (Auto) Urine Creatinine Urine Total Protein Crossmatch Allied health notes reviewed: nursing
[2018-08-21] MEDS: LOVENOX SUB-Q SCH (21:06)
[2018-08-22] MEDS: HumaLOG SUB-Q SCH ×4 (00:05→17:30)
--- NOTE | 2018-08-22 09:40 | Progress Note ---
Assessment and Plan Acute hypoxemic respiratory failure on chronic on MVS . Status post cardiac arrest. Seizure disorder with breakthrough seizures. History of diabetes. History of cerebrovascular accident. Oropharyngeal dysphagia. History of seizures. Hypernatremia, improving -Continue free water flushes for hypernatremia - Continue MVS - Lung protective strategies - VAP bundle addressed - SBTs as tolerated -Supportive transfusions, to keep HgB >7g/dL - Continue Keppra for seizures with prn ativan IV for breakthrough - Continue Stress ulcer & VTE prophylaxis - Continue bronchodilators with pulmonary hygiene per RT - Continue to wean supplemental oxygen to keep O2 sats 88-90% - Chronic home medications - Replete electrolytes as indicated - Monitor renal indices closely - Avoid nephrotoxic agents, adjust all medications for CrCL - Strict intake and output monitoring - Continue enteral nutrition as tolerated - Continue accuchecks with glycemic control - Target glucose of 140-180 mg/dL - Maintenance of sleep -wake cycle - Mobility as tolerated by hemodynamics - Influenza and pneumonia vaccination per protocol ....discussed with RT/RN -Trachesotomy placement early next week PROGNOSIS: GUARDED -POOR CONDITION: CRITICAL CODE STATUS: FULL CODE The high probability of a clinically significant, sudden or life-threatening deterioration of the [respiratory, neurology, renal] system(s) required my full and direct attention, intervention and personal management. The aggregate critical care time was [31] minutes without overlap. Time includes spent on; [x] Data Review and interpretation [x] Patient assessment and monitoring of vital signs [x] Documentation [x] Medication orders and management Subjective Date of service: 08/22/18 Principal diagnosis: Acute hypoxemic resp failure; S/P cardiac arrest; Seizures; DM II; H/O CVA Interval history: Patient is seen today for: Acute hypoxemic respiratory failure on chronic; Status post cardiac arrest; Seizure disorder with breakthrough seizures; History of diabetes; History of cerebrovascular accident; Oropharyngeal dysphagia; History of seizures. Seen and examined at bedside; 24hour events reviewed; nursing and respiratory care staff consulted; no adverse overnight events reported to me; remains on MVS; AMS is persistent; no emesis or overt aspiration; no fevers or chills reported and no seizure activity Tolerated 6 hours of PSV 01/03 yesterday, did not tolerate any this morning For trachesotomy on Friday Objective Vital Signs - 12hr 08/21/18 08/21/18 08/21/18 22:00 22:30 23:00 Temperature Pulse Rate 56 L 54 L 55 L Pulse Rate [ From Monitor] Respiratory 12 11 L 14 Rate Blood Pressure 147/57 147/57 151/57 O2 Sat by Pulse 100 100 100 Oximetry 08/21/18 08/21/18 08/21/18 23:30 23:36 23:50 Temperature Pulse Rate 56 L 57 L 57 L Pulse Rate [ 54 L From Monitor] Respiratory 13 12 Rate Blood Pressure 147/57 147/57 147/57 O2 Sat by Pulse 98 100 98 Oximetry 08/21/18 08/22/18 08/22/18 23:51 00:00 00:01 Temperature 98.3 F Pulse Rate 61 58 L 56 L Pulse Rate [ From Monitor] Respiratory 13 13 Rate Blood Pressure 141/57 141/57 O2 Sat by Pulse 98 99 Oximetry 08/22/18 08/22/18 08/22/18 00:30 01:00 01:30 Temperature Pulse Rate 57 L 56 L 57 L Pulse Rate [ 54 L From Monitor] Respiratory 12 13 14 Rate Blood Pressure 142/56 142/56 161/62 O2 Sat by Pulse 100 100 100 Oximetry 08/22/18 08/22/18 08/22/18 02:00 02:30 02:50 Temperature Pulse Rate 57 L 62 55 L Pulse Rate [ 54 L From Monitor] Respiratory 14 15 16 Rate Blood Pressure 161/62 146/60 O2 Sat by Pulse 100 100 100 Oximetry 08/22/18 08/22/18 08/22/18 03:00 03:30 03:48 Temperature Pulse Rate 55 L 59 L 61 Pulse Rate [ From Monitor] Respiratory 13 15 Rate Blood Pressure 146/60 154/63 O2 Sat by Pulse 100 100 Oximetry 08/22/18 08/22/18 08/22/18 04:00 04:30 05:00 Temperature 98.1 F Pulse Rate 59 L 60 59 L Pulse Rate [ From Monitor] Respiratory 11 L 11 L 13 Rate Blood Pressure 137/59 141/61 141/61 O2 Sat by Pulse 99 100 100 Oximetry 08/22/18 08/22/18 08/22/18 05:04 05:30 06:00 Temperature Pulse Rate 59 L 61 61 Pulse Rate [ 60 From Monitor] Respiratory 12 12 12 Rate Blood Pressure 146/60 140/58 O2 Sat by Pulse 100 99 100 Oximetry 08/22/18 08/22/18 08/22/18 06:30 07:00 07:30 Temperature Pulse Rate 60 61 61 Pulse Rate [ From Monitor] Respiratory 13 13 12 Rate Blood Pressure 149/59 138/58 143/59 O2 Sat by Pulse 100 100 100 Oximetry 08/22/18 08/22/18 08/22/18 07:37 07:59 08:00 Temperature 98.1 F Pulse Rate 60 60 Pulse Rate [ From Monitor] Respiratory 13 Rate Blood Pressure 142/57 142/57 O2 Sat by Pulse 100 98 Oximetry 08/22/18 08:30 Temperature Pulse Rate 60 Pulse Rate [ From Monitor] Respiratory 14 Rate Blood Pressure 146/61 O2 Sat by Pulse 100 Oximetry Constitutional: no acute distress, other (Elderly looking AAM, normocephalic resting in bed on MVS) Eyes: non-icteric ENT: oropharynx moist, other (ETT 23-24 cm JOVI) Neck: supple, no lymphadenopathy, no JVD, other (no thyromegaly) Effort: mildly labored Ascultation: Bilateral: diminished breath sounds, rhonchi Percussion: Bilateral: not dull Cardiovascular: regular rate and rhythm, other (S1,S2, no murmurs, gallops or rubs) Gastrointestinal: normoactive bowel sounds, soft, non-tender, non-distended Integumentary: normal Extremities: no cyanosis, pulses normal, no ischemia or petechiae, edema (trace ) Neurologic: unable to assess, other (slight pupillary constriction to light) Psychiatric: other (unable to assess) CBC and BMP: 08/21/18 04:41 08/22/18 12:15 ABG, PT/INR, D-dimer: ABG POC ABG pH 7.466 (7.35-7.45) H 08/22/18 05:01 POC ABG pCO2 33.8 (35-45) L 08/22/18 05:01 POC ABG pO2 111 (80-105) H 08/22/18 05:01 POC ABG HCO3 24.4 (22-26 mml/L) 08/22/18 05:01 POC ABG Total CO2 25 (23-27mmol/L) 08/22/18 05:01 POC ABG O2 Sat 99 08/22/18 05:01 PT/INR, D-dimer PT 16.5 Sec. (12.2-14.9) H 08/13/18 00:47 INR 1.25 (0.87-1.13) H 08/13/18 00:47 2742.50 ng/mlDDU (0-234) H 08/13/18 20:07 Abnormal lab findings: Abnormal Labs 08/12/18 08/12/18 08/12/18 21:44 21:44 21:44 WBC 15.5 H RBC 3.12 L Hgb 8.8 L Hct 28.9 L MCHC 31 L RDW 19.5 H [place] # Seg Neutrophils % Lymphocytes % (Manual) 48.0 H Seg Neutrophils # Lymphocytes # (Manual) 7.4 H PT 17.8 H INR 1.37 H APTT D-Dimer Heparin Anti-Xa Level POC ABG pH POC ABG pCO2 POC ABG pO2 Sodium 159 H Potassium Chloride 118.5 H Carbon Dioxide BUN 34 H Creatinine Glucose 161 H POC Glucose Lactic Acid Calcium Magnesium AST Alkaline Phosphatase Total Creatine Kinase CK-MB (CK-2) Troponin T 0.105 H* C-Reactive Protein Total Protein Albumin Cholesterol LDL Cholesterol Direct HDL Cholesterol Urine WBC (Auto) Urine Creatinine Urine Total Protein Crossmatch 08/13/18 08/13/18 08/13/18 00:32 00:47 00:47 WBC RBC Hgb 9.2 L Hct 29.6 L MCHC RDW [place] # Seg Neutrophils % Lymphocytes % (Manual) Seg Neutrophils # Lymphocytes # (Manual) PT 16.5 H INR 1.25 H APTT 37.3 H D-Dimer Heparin Anti-Xa Level POC ABG pH POC ABG pCO2 POC ABG pO2 Sodium Potassium Chloride Carbon Dioxide BUN Creatinine Glucose POC Glucose Lactic Acid Calcium Magnesium AST Alkaline Phosphatase Total Creatine Kinase 211 H CK-MB (CK-2) 7.7 H Troponin T 0.169 H* D C-Reactive Protein Total Protein Albumin Cholesterol 46 L LDL Cholesterol Direct 17 L HDL Cholesterol 6 L Urine WBC (Auto) Urine Creatinine Urine Total Protein Crossmatch 08/13/18 08/13/18 08/13/18 00:50 02:25 05:34 WBC RBC Hgb Hct MCHC RDW [place] # Seg Neutrophils % Lymphocytes % (Manual) Seg Neutrophils # Lymphocytes # (Manual) PT INR APTT D-Dimer Heparin Anti-Xa Level POC ABG pH 7.503 H POC ABG pCO2 POC ABG pO2 253 H Sodium Potassium Chloride Carbon Dioxide BUN Creatinine Glucose POC Glucose Lactic Acid Calcium Magnesium AST Alkaline Phosphatase Total Creatine Kinase 311 H CK-MB (CK-2) 10.4 H Troponin T 0.283 H* D C-Reactive Protein Total Protein Albumin Cholesterol LDL Cholesterol Direct HDL Cholesterol Urine WBC (Auto) > 182.0 H Urine Creatinine Urine Total Protein Crossmatch 08/13/18 08/13/18 08/13/18 06:35 10:10 10:10 WBC RBC Hgb Hct MCHC RDW [place] # Seg Neutrophils % Lymphocytes % (Manual) Seg Neutrophils # Lymphocytes # (Manual) PT INR APTT D-Dimer Heparin Anti-Xa Level POC ABG pH 7.554 H POC ABG pCO2 33.5 L POC ABG pO2 220 H Sodium 158 H Potassium Chloride 117.1 H Carbon Dioxide BUN 53 H Creatinine 2.0 H Glucose 247 H POC Glucose Lactic Acid Calcium 8.2 L Magnesium AST Alkaline Phosphatase Total Creatine Kinase 309 H CK-MB (CK-2) 4.1 H Troponin T 0.470 H* D C-Reactive Protein Total Protein Albumin Cholesterol LDL Cholesterol Direct HDL Cholesterol Urine WBC (Auto) Urine Creatinine Urine Total Protein Crossmatch 08/13/18 08/13/18 08/13/18 12:53 12:53 17:55 WBC RBC Hgb Hct MCHC RDW [place] # Seg Neutrophils % Lymphocytes % (Manual) Seg Neutrophils # Lymphocytes # (Manual) PT INR APTT D-Dimer Heparin Anti-Xa Level POC ABG pH POC ABG pCO2 POC ABG pO2 Sodium Potassium Chloride Carbon Dioxide BUN Creatinine Glucose POC Glucose 308 H Lactic Acid 2.80 H* Calcium Magnesium 2.50 H AST Alkaline Phosphatase Total Creatine Kinase CK-MB (CK-2) Troponin T C-Reactive Protein 16.90 H Total Protein Albumin Cholesterol LDL Cholesterol Direct HDL Cholesterol Urine WBC (Auto) Urine Creatinine Urine Total Protein Crossmatch 08/13/18 08/13/18 08/13/18 20:07 21:16 23:17 WBC RBC Hgb Hct MCHC RDW [place] # Seg Neutrophils % Lymphocytes % (Manual) Seg Neutrophils # Lymphocytes # (Manual) PT INR APTT D-Dimer 2742.50 H Heparin Anti-Xa Level POC ABG pH 7.483 H POC ABG pCO2 30.8 L POC ABG pO2 150 H Sodium Potassium Chloride Carbon Dioxide BUN Creatinine Glucose POC Glucose 245 H Lactic Acid Calcium Magnesium AST Alkaline Phosphatase Total Creatine Kinase CK-MB (CK-2) Troponin T C-Reactive Protein Total Protein Albumin Cholesterol LDL Cholesterol Direct HDL Cholesterol Urine WBC (Auto) Urine Creatinine Urine Total Protein Crossmatch 08/14/18 08/14/18 08/14/18 04:03 04:03 04:56 WBC 18.2 H RBC 2.62 L Hgb 7.3 L Hct 24.5 L MCHC RDW 18.9 H [place] # 1.2 H Seg Neutrophils % 79.4 H Lymphocytes % (Manual) Seg Neutrophils # 14.5 H Lymphocytes # (Manual) PT INR APTT D-Dimer Heparin Anti-Xa Level POC ABG pH POC ABG pCO2 33.5 L POC ABG pO2 153 H Sodium 152 H Potassium 3.4 L Chloride 113.8 H Carbon Dioxide BUN 72 H Creatinine 2.7 H Glucose 239 H POC Glucose Lactic Acid Calcium 7.6 L Magnesium AST 50 H Alkaline Phosphatase 219 H Total Creatine Kinase CK-MB (CK-2) Troponin T 0.409 H* C-Reactive Protein Total Protein 6.2 L Albumin 1.9 L Cholesterol LDL Cholesterol Direct HDL Cholesterol Urine WBC (Auto) Urine Creatinine Urine Total Protein Crossmatch 08/14/18 08/14/18 08/14/18 05:18 13:38 15:35 WBC RBC Hgb Hct MCHC RDW [place] # Seg Neutrophils % Lymphocytes % (Manual) Seg Neutrophils # Lymphocytes # (Manual) PT INR APTT D-Dimer Heparin Anti-Xa Level POC ABG pH POC ABG pCO2 POC ABG pO2 Sodium 150 H Potassium 3.2 L Chloride 114.5 H Carbon Dioxide BUN 69 H Creatinine 2.3 H Glucose 247 H POC Glucose 242 H 296 H Lactic Acid Calcium 7.2 L Magnesium AST Alkaline Phosphatase Total Creatine Kinase CK-MB (CK-2) Troponin T C-Reactive Protein Total Protein Albumin Cholesterol LDL Cholesterol Direct HDL Cholesterol Urine WBC (Auto) Urine Creatinine Urine Total Protein Crossmatch 08/14/18 08/14/18 08/14/18 17:01 17:20 23:47 WBC RBC Hgb Hct MCHC RDW [place] # Seg Neutrophils % Lymphocytes % (Manual) Seg Neutrophils # Lymphocytes # (Manual) PT INR APTT D-Dimer Heparin Anti-Xa Level POC ABG pH POC ABG pCO2 POC ABG pO2 Sodium Potassium Chloride Carbon Dioxide BUN Creatinine Glucose POC Glucose 261 H 280 H Lactic Acid Calcium Magnesium AST Alkaline Phosphatase Total Creatine Kinase CK-MB (CK-2) Troponin T C-Reactive Protein Total Protein Albumin Cholesterol LDL Cholesterol Direct HDL Cholesterol Urine WBC (Auto) Urine Creatinine 60.9 H Urine Total Protein 64 H Crossmatch 08/15/18 08/15/18 08/15/18 04:05 04:05 04:05 WBC RBC Hgb 6.3 L Hct 19.7 L* MCHC RDW [place] # Seg Neutrophils % Lymphocytes % (Manual) Seg Neutrophils # Lymphocytes # (Manual) PT INR APTT D-Dimer Heparin Anti-Xa Level 0.17 L POC ABG pH POC ABG pCO2 POC ABG pO2 Sodium 146 H Potassium 3.0 L Chloride 110.6 H Carbon Dioxide BUN 64 H Creatinine 2.2 H Glucose 231 H POC Glucose Lactic Acid Calcium 7.1 L Magnesium AST Alkaline Phosphatase Total Creatine Kinase CK-MB (CK-2) Troponin T C-Reactive Protein Total Protein Albumin Cholesterol LDL Cholesterol Direct HDL Cholesterol Urine WBC (Auto) Urine Creatinine Urine Total Protein Crossmatch 08/15/18 08/15/18 08/15/18 05:21 05:26 06:35 WBC RBC Hgb Hct MCHC RDW [place] # Seg Neutrophils % Lymphocytes % (Manual) Seg Neutrophils # Lymphocytes # (Manual) PT INR APTT 79.0 H* D-Dimer Heparin Anti-Xa Level POC ABG pH 7.494 H POC ABG pCO2 POC ABG pO2 155 H Sodium Potassium Chloride Carbon Dioxide BUN Creatinine Glucose POC Glucose 271 H Lactic Acid Calcium Magnesium AST Alkaline Phosphatase Total Creatine Kinase CK-MB (CK-2) Troponin T C-Reactive Protein Total Protein Albumin Cholesterol LDL Cholesterol Direct HDL Cholesterol Urine WBC (Auto) Urine Creatinine Urine Total Protein Crossmatch 08/15/18 08/15/18 08/15/18 12:10 15:31 17:27 WBC RBC Hgb Hct MCHC RDW [place] # Seg Neutrophils % Lymphocytes % (Manual) Seg Neutrophils # Lymphocytes # (Manual) PT INR APTT D-Dimer Heparin Anti-Xa Level POC ABG pH POC ABG pCO2 POC ABG pO2 Sodium Potassium Chloride Carbon Dioxide BUN Creatinine Glucose POC Glucose 301 H 287 H Lactic Acid Calcium Magnesium AST Alkaline Phosphatase Total Creatine Kinase CK-MB (CK-2) Troponin T C-Reactive Protein Total Protein Albumin Cholesterol LDL Cholesterol Direct HDL Cholesterol Urine WBC (Auto) Urine Creatinine Urine Total Protein Crossmatch See Detail 08/15/18 08/15/18 08/16/18 21:41 23:45 04:13 WBC RBC Hgb Hct MCHC RDW [place] # Seg Neutrophils % Lymphocytes % (Manual) Seg Neutrophils # Lymphocytes # (Manual) PT INR APTT D-Dimer Heparin Anti-Xa Level 0.19 L POC ABG pH POC ABG pCO2 32.1 L POC ABG pO2 107 H Sodium Potassium Chloride Carbon Dioxide BUN Creatinine Glucose POC Glucose 163 H Lactic Acid Calcium Magnesium AST Alkaline Phosphatase Total Creatine Kinase CK-MB (CK-2) Troponin T C-Reactive Protein Total Protein Albumin Cholesterol LDL Cholesterol Direct HDL Cholesterol Urine WBC (Auto) Urine Creatinine Urine Total Protein Crossmatch 08/16/18 08/16/18 08/16/18 04:50 05:28 11:30 WBC RBC 2.67 L Hgb 8.1 L Hct 23.4 L MCHC 35 H RDW 18.3 H [place] # Seg Neutrophils % Lymphocytes % (Manual) Seg Neutrophils # Lymphocytes # (Manual) PT INR APTT D-Dimer Heparin Anti-Xa Level 0.19 L POC ABG pH POC ABG pCO2 POC ABG pO2 Sodium Potassium Chloride Carbon Dioxide BUN Creatinine Glucose POC Glucose 141 H Lactic Acid Calcium Magnesium AST Alkaline Phosphatase Total Creatine Kinase CK-MB (CK-2) Troponin T C-Reactive Protein Total Protein Albumin Cholesterol LDL Cholesterol Direct HDL Cholesterol Urine WBC (Auto) Urine Creatinine Urine Total Protein Crossmatch 08/16/18 08/16/18 08/16/18 11:30 12:00 12:01 WBC RBC Hgb Hct MCHC RDW [place] # Seg Neutrophils % Lymphocytes % (Manual) Seg Neutrophils # Lymphocytes # (Manual) PT INR APTT D-Dimer Heparin Anti-Xa Level 0.15 L POC ABG pH POC ABG pCO2 POC ABG pO2 Sodium Potassium Chloride 107.8 H Carbon Dioxide 21 L BUN 47 H Creatinine 1.6 H Glucose 221 H POC Glucose 267 H Lactic Acid Calcium 6.9 L Magnesium AST Alkaline Phosphatase Total Creatine Kinase CK-MB (CK-2) Troponin T C-Reactive Protein Total Protein Albumin Cholesterol LDL Cholesterol Direct HDL Cholesterol Urine WBC (Auto) Urine Creatinine Urine Total Protein Crossmatch 08/16/18 08/16/18 08/16/18 17:23 20:01 23:13 WBC RBC Hgb Hct MCHC RDW [place] # Seg Neutrophils % Lymphocytes % (Manual) Seg Neutrophils # Lymphocytes # (Manual) PT INR APTT D-Dimer Heparin Anti-Xa Level 0.26 L POC ABG pH POC ABG pCO2 POC ABG pO2 Sodium Potassium Chloride Carbon Dioxide BUN Creatinine Glucose POC Glucose 245 H 256 H Lactic Acid Calcium Magnesium AST Alkaline Phosphatase Total Creatine Kinase CK-MB (CK-2) Troponin T C-Reactive Protein Total Protein Albumin Cholesterol LDL Cholesterol Direct HDL Cholesterol Urine WBC (Auto) Urine Creatinine Urine Total Protein Crossmatch 08/17/18 08/17/18 08/17/18 04:29 04:55 05:34 WBC RBC Hgb 8.2 L Hct 24.3 L MCHC RDW [place] # Seg Neutrophils % Lymphocytes % (Manual) Seg Neutrophils # Lymphocytes # (Manual) PT INR APTT D-Dimer Heparin Anti-Xa Level POC ABG pH POC ABG pCO2 32.4 L POC ABG pO2 108 H Sodium Potassium Chloride Carbon Dioxide BUN Creatinine Glucose POC Glucose 268 H Lactic Acid Calcium Magnesium AST Alkaline Phosphatase Total Creatine Kinase CK-MB (CK-2) Troponin T C-Reactive Protein Total Protein Albumin Cholesterol LDL Cholesterol Direct HDL Cholesterol Urine WBC (Auto) Urine Creatinine Urine Total Protein Crossmatch 08/17/18 08/17/18 08/17/18 11:54 13:44 17:24 WBC RBC Hgb Hct MCHC RDW [place] # Seg Neutrophils % Lymphocytes % (Manual) Seg Neutrophils # Lymphocytes # (Manual) PT INR APTT D-Dimer Heparin Anti-Xa Level POC ABG pH POC ABG pCO2 32.7 L POC ABG pO2 142 H Sodium Potassium Chloride Carbon Dioxide BUN Creatinine Glucose POC Glucose 295 H 283 H Lactic Acid Calcium Magnesium AST Alkaline Phosphatase Total Creatine Kinase CK-MB (CK-2) Troponin T C-Reactive Protein Total Protein Albumin Cholesterol LDL Cholesterol Direct HDL Cholesterol Urine WBC (Auto) Urine Creatinine Urine Total Protein Crossmatch 08/18/18 08/18/18 08/18/18 00:05 00:59 04:15 WBC RBC Hgb Hct MCHC RDW [place] # Seg Neutrophils % Lymphocytes % (Manual) Seg Neutrophils # Lymphocytes # (Manual) PT INR APTT D-Dimer Heparin Anti-Xa Level POC ABG pH POC ABG pCO2 POC ABG pO2 115 H Sodium Potassium Chloride Carbon Dioxide BUN Creatinine Glucose POC Glucose 247 H 251 H Lactic Acid Calcium Magnesium AST Alkaline Phosphatase Total Creatine Kinase CK-MB (CK-2) Troponin T C-Reactive Protein Total Protein Albumin Cholesterol LDL Cholesterol Direct HDL Cholesterol Urine WBC (Auto) Urine Creatinine Urine Total Protein Crossmatch 08/18/18 08/18/18 08/18/18 05:02 12:20 17:51 WBC RBC Hgb Hct MCHC RDW [place] # Seg Neutrophils % Lymphocytes % (Manual) Seg Neutrophils # Lymphocytes # (Manual) PT INR APTT D-Dimer Heparin Anti-Xa Level POC ABG pH POC ABG pCO2 POC ABG pO2 Sodium Potassium Chloride Carbon Dioxide BUN Creatinine Glucose POC Glucose 282 H 209 H 261 H Lactic Acid Calcium Magnesium AST Alkaline Phosphatase Total Creatine Kinase CK-MB (CK-2) Troponin T C-Reactive Protein Total Protein Albumin Cholesterol LDL Cholesterol Direct HDL Cholesterol Urine WBC (Auto) Urine Creatinine Urine Total Protein Crossmatch 08/18/18 08/19/18 08/19/18 23:30 04:54 05:16 WBC RBC 2.62 L Hgb 7.5 L Hct 23.1 L MCHC RDW 18.1 H [place] # Seg Neutrophils % Lymphocytes % (Manual) Seg Neutrophils # Lymphocytes # (Manual) PT INR APTT D-Dimer Heparin Anti-Xa Level POC ABG pH POC ABG pCO2 POC ABG pO2 58 L Sodium Potassium Chloride Carbon Dioxide BUN Creatinine Glucose POC Glucose 231 H Lactic Acid Calcium Magnesium AST Alkaline Phosphatase Total Creatine Kinase CK-MB (CK-2) Troponin T C-Reactive Protein Total Protein Albumin Cholesterol LDL Cholesterol Direct HDL Cholesterol Urine WBC (Auto) Urine Creatinine Urine Total Protein Crossmatch 08/19/18 08/19/18 08/19/18 05:16 05:40 11:56 WBC RBC Hgb Hct MCHC RDW [place] # Seg Neutrophils % Lymphocytes % (Manual) Seg Neutrophils # Lymphocytes # (Manual) PT INR APTT D-Dimer Heparin Anti-Xa Level POC ABG pH POC ABG pCO2 POC ABG pO2 Sodium 152 H D Potassium Chloride 118.7 H Carbon Dioxide BUN 38 H Creatinine Glucose 220 H POC Glucose 227 H 213 H Lactic Acid Calcium 8.1 L D Magnesium AST Alkaline Phosphatase Total Creatine Kinase CK-MB (CK-2) Troponin T C-Reactive Protein Total Protein Albumin Cholesterol LDL Cholesterol Direct HDL Cholesterol Urine WBC (Auto) Urine Creatinine Urine Total Protein Crossmatch 08/19/18 08/19/18 08/20/18 18:37 23:32 04:38 WBC RBC Hgb Hct MCHC RDW [place] # Seg Neutrophils % Lymphocytes % (Manual) Seg Neutrophils # Lymphocytes # (Manual) PT INR APTT D-Dimer Heparin Anti-Xa Level POC ABG pH POC ABG pCO2 POC ABG pO2 140 H Sodium Potassium Chloride Carbon Dioxide BUN Creatinine Glucose POC Glucose 227 H 245 H Lactic Acid Calcium Magnesium AST Alkaline Phosphatase Total Creatine Kinase CK-MB (CK-2) Troponin T C-Reactive Protein Total Protein Albumin Cholesterol LDL Cholesterol Direct HDL Cholesterol Urine WBC (Auto) Urine Creatinine Urine Total Protein Crossmatch 08/20/18 08/20/18 08/20/18 05:31 05:37 05:37 WBC RBC 2.60 L Hgb 7.5 L Hct 22.9 L MCHC RDW 18.4 H [place] # Seg Neutrophils % Lymphocytes % (Manual) Seg Neutrophils # Lymphocytes # (Manual) PT INR APTT D-Dimer Heparin Anti-Xa Level POC ABG pH POC ABG pCO2 POC ABG pO2 Sodium 150 H Potassium Chloride 115.6 H Carbon Dioxide BUN 38 H Creatinine Glucose 276 H POC Glucose 266 H Lactic Acid Calcium 7.9 L Magnesium AST Alkaline Phosphatase Total Creatine Kinase CK-MB (CK-2) Troponin T C-Reactive Protein Total Protein Albumin Cholesterol LDL Cholesterol Direct HDL Cholesterol Urine WBC (Auto) Urine Creatinine Urine Total Protein Crossmatch 08/20/18 08/20/18 08/20/18 14:01 18:20 23:11 WBC RBC Hgb Hct MCHC RDW [place] # Seg Neutrophils % Lymphocytes % (Manual) Seg Neutrophils # Lymphocytes # (Manual) PT INR APTT D-Dimer Heparin Anti-Xa Level POC ABG pH POC ABG pCO2 POC ABG pO2 Sodium Potassium Chloride Carbon Dioxide BUN Creatinine Glucose POC Glucose 305 H 271 H 218 H Lactic Acid Calcium Magnesium AST Alkaline Phosphatase Total Creatine Kinase CK-MB (CK-2) Troponin T C-Reactive Protein Total Protein Albumin Cholesterol LDL Cholesterol Direct HDL Cholesterol Urine WBC (Auto) Urine Creatinine Urine Total Protein Crossmatch 08/21/18 08/21/18 08/21/18 04:41 04:41 06:20 WBC RBC 2.65 L Hgb 7.6 L Hct 23.3 L MCHC RDW 19.1 H [place] # Seg Neutrophils % Lymphocytes % (Manual) Seg Neutrophils # Lymphocytes # (Manual) PT INR APTT D-Dimer Heparin Anti-Xa Level POC ABG pH POC ABG pCO2 POC ABG pO2 Sodium 150 H Potassium Chloride 117.8 H Carbon Dioxide BUN 37 H Creatinine Glucose 233 H POC Glucose 262 H Lactic Acid Calcium 7.9 L Magnesium AST Alkaline Phosphatase Total Creatine Kinase CK-MB (CK-2) Troponin T C-Reactive Protein Total Protein Albumin Cholesterol LDL Cholesterol Direct HDL Cholesterol Urine WBC (Auto) Urine Creatinine Urine Total Protein Crossmatch 08/21/18 08/21/18 08/21/18 10:18 12:04 12:36 WBC RBC Hgb Hct MCHC RDW [place] # Seg Neutrophils % Lymphocytes % (Manual) Seg Neutrophils # Lymphocytes # (Manual) PT INR APTT D-Dimer Heparin Anti-Xa Level POC ABG pH POC ABG pCO2 POC ABG pO2 Sodium Potassium Chloride Carbon Dioxide BUN Creatinine Glucose POC Glucose 256 H 245 H 255 H Lactic Acid Calcium Magnesium AST Alkaline Phosphatase Total Creatine Kinase CK-MB (CK-2) Troponin T C-Reactive Protein Total Protein Albumin Cholesterol LDL Cholesterol Direct HDL Cholesterol Urine WBC (Auto) Urine Creatinine Urine Total Protein Crossmatch 08/21/18 08/21/18 08/22/18 17:36 23:29 05:01 WBC RBC Hgb Hct MCHC RDW [place] # Seg Neutrophils % Lymphocytes % (Manual) Seg Neutrophils # Lymphocytes # (Manual) PT INR APTT D-Dimer Heparin Anti-Xa Level POC ABG pH 7.466 H POC ABG pCO2 33.8 L POC ABG pO2 111 H Sodium Potassium Chloride Carbon Dioxide BUN Creatinine Glucose POC Glucose 263 H 268 H Lactic Acid Calcium Magnesium AST Alkaline Phosphatase Total Creatine Kinase CK-MB (CK-2) Troponin T C-Reactive Protein Total Protein Albumin Cholesterol LDL Cholesterol Direct HDL Cholesterol Urine WBC (Auto) Urine Creatinine Urine Total Protein Crossmatch 08/22/18 05:05 WBC RBC Hgb Hct MCHC RDW [place] # Seg Neutrophils % Lymphocytes % (Manual) Seg Neutrophils # Lymphocytes # (Manual) PT INR APTT D-Dimer Heparin Anti-Xa Level POC ABG pH POC ABG pCO2 POC ABG pO2 Sodium Potassium Chloride Carbon Dioxide BUN Creatinine Glucose POC Glucose 256 H Lactic Acid Calcium Magnesium AST Alkaline Phosphatase Total Creatine Kinase CK-MB (CK-2) Troponin T C-Reactive Protein Total Protein Albumin Cholesterol LDL Cholesterol Direct HDL Cholesterol Urine WBC (Auto) Urine Creatinine Urine Total Protein Crossmatch Allied health notes reviewed: nursing
[2018-08-22] MEDS: PEPCID PO SCH ×2 (10:41→21:56)
[2018-08-22] MEDS: ASPIRIN PO SCH (10:41)
[2018-08-22] MEDS: KEPPRA PO SCH ×2 (10:41→21:54)
[2018-08-22] MEDS: LANTUS SUB-Q SCH (10:42)
[2018-08-22] MEDS: SODIUM CHLORIDE FLUSH SYRINGE 10 ML IV SCH ×2 (10:46→21:55)
[2018-08-22 12:44] LABS: BUN/Creatinine Ratio 40; Blood Urea Nitrogen 36 mg/dL (9-20); Calcium 8.2 mg/dL (8.4-10.2); Hemolysis Index 2
--- NOTE | 2018-08-22 12:44 | Progress Note ---
Assessment and Plan Assessment and plan: Patient is a 77 yo man from [facility] with a history of respiratory failure, CVA with tracheostomy and Gtube who presented to [facility] ED following cardiac arrest after being found unresponsive at the skilled nursing. Time down is unknown per records. The patient is on the vent and unresponsive, all history is obtained from the chart. Patient had multiple episodes of arrest/pulselessness. He has been on the vent since then without any improvement. Per ER notes the patient was bagged via tracheostomy which continued to have low tidal volumes and so the patient with orally intubated after which tidal volumes improved. I spoke with and daughter, Felicita and they believe that he aspirated with a mucus plug that caused the cardiopulmonary arrest not NSTEMI.. Initially, he went to [facility] may 05 to june 05, there was fluid on brain, strokes, they drain the fluid off brain. The trach was placed at [facility] and patient then went to [facility], x 7 weeks (trach was changed where capped was placed), he was doing well, talking and sitting up. Then he went to [facility], August 03 and his oral care was horrible. The trach care was horrible and no suncting done enough. Mouth looking like crusty. August 12, on Friday, he had voice changing and mucus plugging. Cardiopulmonary arrest x 3: Most likely related to mucus plugging >NSTEMI, leading to severe irreversible brain damage: supportive care, CCM and Neurology following. Acute on chronic respiratory failure on mechanical ventilation >96 hours: Trach has been removed when patient orally intubated, continue ventilator management per pulmonology Right pneumothorax, appears to be resolved: Status post chest tube, mgt per pulmonology Anoxic brain injury and status epilepticus poa: Patient was noted to be having seizures, he received Ativan and Keppra, neurology consult appreciated, poor prognosis, poor likelihood of recovery, Hypernatremia/free water deficits, Continue free water via G-tube, sp hypotonic IV solution, monitor bmp closely Acute kidney injury likely due to ATN, poa: Nephrology consult, continue IV fluid, avoid renal toxic agents NSTEMI: treated with IV heparin, asa, statin, no bblocker due to bradycardia, hypotension, Cardiology is following Severe malnutrition: Dietitian consult, continue tube feedings UTI/sepsis: Continue antibiotics, follow-up urine cultures-->no growth x 48 hours Type 2 dm with persistent hyperglycemia: cont insulins and adjust according, on tube feedings Anemia: sp transfusion Urinary retention: continue douglass, do not remove DVT prophylaxis; patient is fully anticoagulated on heparin drip Awaiting NM brain flow scan==>reduced blood flow Next step is replace Trach and d/c back to facility, d/w Dr. Marvin, trach is scheduled for 08/25/18 at 2pm, Friday is a holiday BMP pending History Interval history: Patient was seen and examined. Follow-up on current diagnosis of respiratory failure. No overnight events reported to me. Patient intubated, not sedated. Imaging, nursing note, chart, labs and old chart reviewed. Hospitalist Physical - Physical exam Narrative exam: Gen: ill appearing, intubated not sedated, comatose HEENT: NCAT, pupil pinpoint and nonreactive Neck: supple, no adenopathy, no thyromegaly, no JVD CVS/Heart: Regular, normal S1S2, pulses present bilaterally Chest/Lungs: diminished bs bilateral, Symmetrical chest expansion, good air entry bilaterally GI/Abdomen: soft, PEG in place, +bowel sounds, Extermity/Skin: no obvious rash MSK: unresponsive Neuro: unresponsive Psych: unresponsive - Constitutional Vitals: Temp Pulse Resp BP Pulse Ox 98.1 F 56 L 13 151/59 99 08/22/18 07:37 08/22/18 12:31 08/22/18 12:31 08/22/18 12:31 08/22/18 12:31 General appearance: Present: other (twitching, nonresponsive, intubated) Results - Labs CBC & Chem 7: 08/21/18 04:41 08/21/18 04:41 Labs: Laboratory Last Values WBC 6.6 K/mm3 (4.5-11.0) 08/21/18 04:41 RBC 2.65 M/mm3 (3.65-5.03) L 08/21/18 04:41 Hgb 7.6 gm/dl (11.8-15.2) L 08/21/18 04:41 Hct 23.3 % (35.5-45.6) L 08/21/18 04:41 MCV 88 fl (84-94) 08/21/18 04:41 MCH 29 pg (28-32) 08/21/18 04:41 MCHC 33 % (32-34) 08/21/18 04:41 RDW 19.1 % (13.2-15.2) H 08/21/18 04:41 Plt Count 293 K/mm3 (140-440) 08/21/18 04:41 Lymph % (Auto) 13.6 % (13.4-35.0) 08/14/18 04:03 [place] % (Auto) 6.4 % (0.0-7.3) 08/14/18 04:03 Eos % (Auto) 0.1 % (0.0-4.3) 08/14/18 04:03 Baso % (Auto) 0.5 % (0.0-1.8) 08/14/18 04:03 Lymph # 2.5 K/mm3 (1.2-5.4) 08/14/18 04:03 [place] # 1.2 K/mm3 (0.0-0.8) H 08/14/18 04:03 Eos # 0.0 K/mm3 (0.0-0.4) 08/14/18 04:03 Baso # 0.1 K/mm3 (0.0-0.1) 08/14/18 04:03 Add Manual Diff Complete 08/12/18 21:44 Total Counted 100 08/12/18 21:44 Seg Neutrophils % 79.4 % (40.0-70.0) H 08/14/18 04:03 Seg Neuts % (Manual) 44.0 % (40.0-70.0) 08/12/18 21:44 0 % 08/12/18 21:44 48.0 % (13.4-35.0) H 08/12/18 21:44 Reactive Lymphs % (Man) 0 % 08/12/18 21:44 2.0 % (0.0-7.3) 08/12/18 21:44 1.0 % (0.0-4.3) 08/12/18 21:44 0 % (0.0-1.8) 08/12/18 21:44 1.0 % 08/12/18 21:44 4.0 % 08/12/18 21:44 0 % 08/12/18 21:44 0 % 08/12/18 21:44 Nucleated RBC % Not Reportable 08/12/18 21:44 Seg Neutrophils # 14.5 K/mm3 (1.8-7.7) H 08/14/18 04:03 Seg Neutrophils # Man 6.8 K/mm3 (1.8-7.7) 08/12/18 21:44 Band Neutrophils # 0.0 K/mm3 08/12/18 21:44 7.4 K/mm3 (1.2-5.4) H 08/12/18 21:44 Abs React Lymphs (Man) 0.0 K/mm3 08/12/18 21:44 0.3 K/mm3 (0.0-0.8) 08/12/18 21:44 0.2 K/mm3 (0.0-0.4) 08/12/18 21:44 0.0 K/mm3 (0.0-0.1) 08/12/18 21:44 0.2 K/mm3 08/12/18 21:44 0.6 K/mm3 08/12/18 21:44 0.0 K/mm3 08/12/18 21:44 Blast Cells # 0.0 K/mm3 08/12/18 21:44 WBC Morphology Not Reportable 08/12/18 21:44 Hypersegmented Neuts Not Reportable 08/12/18 21:44 Hyposegmented Neuts Not Reportable 08/12/18 21:44 Hypogranular Neuts Not Reportable 08/12/18 21:44 Not Reportable 08/12/18 21:44 Not Reportable 08/12/18 21:44 Not Reportable 08/12/18 21:44 Not Reportable 08/12/18 21:44 Not Reportable 08/12/18 21:44 Not Reportable 08/12/18 21:44 Consistent w auto 08/12/18 21:44 Not Reportable 08/12/18 21:44 Plt Clumps, EDTA Not Reportable 08/12/18 21:44 Not Reportable 08/12/18 21:44 Not Reportable 08/12/18 21:44 Not Reportable 08/12/18 21:44 Plt Morphology Comment Not Reportable 08/12/18 21:44 RBC Morphology Not Reportable 08/12/18 21:44 Dimorphic RBCs Not Reportable 08/12/18 21:44 Not Reportable 08/12/18 21:44 Not Reportable 08/12/18 21:44 Not Reportable 08/12/18 21:44 Few 08/12/18 21:44 Not Reportable 08/12/18 21:44 Not Reportable 08/12/18 21:44 Not Reportable 08/12/18 21:44 Not Reportable 08/12/18 21:44 Not Reportable 08/12/18 21:44 Not Reportable 08/12/18 21:44 Not Reportable 08/12/18 21:44 Few 08/12/18 21:44 Not Reportable 08/12/18 21:44 Not Reportable 08/12/18 21:44 Not Reportable 08/12/18 21:44 Not Reportable 08/12/18 21:44 Not Reportable 08/12/18 21:44 Not Reportable 08/12/18 21:44 Few 08/12/18 21:44 Acanthocytes (Spur) Not Reportable 08/12/18 21:44 Rouleaux Not Reportable 08/12/18 21:44 Not Reportable 08/12/18 21:44 Not Reportable 08/12/18 21:44 Not Reportable 08/12/18 21:44 Not Reportable 08/12/18 21:44 Hem Pathologist Commnt No 08/12/18 21:44 PT 16.5 Sec. (12.2-14.9) H 08/13/18 00:47 INR 1.25 (0.87-1.13) H 08/13/18 00:47 APTT 79.0 Sec. (24.2-36.6) H* 08/15/18 06:35 2742.50 ng/mlDDU (0-234) H 08/13/18 20:07 Heparin Anti-Xa Level 0.26 U.I./ml (0.3-0.7) L 08/16/18 20:01 POC ABG pH 7.466 (7.35-7.45) H 08/22/18 05:01 POC ABG pCO2 33.8 (35-45) L 08/22/18 05:01 POC ABG pO2 111 (80-105) H 08/22/18 05:01 POC ABG HCO3 24.4 (22-26 mml/L) 08/22/18 05:01 POC ABG Total CO2 25 (23-27mmol/L) 08/22/18 05:01 POC ABG O2 Sat 99 08/22/18 05:01 POC ABG Base Excess 1 ((-2) - (+3)mmol/L) 08/22/18 05:01 24 % 08/22/18 05:01 Sodium 150 mmol/L (137-145) H 08/21/18 04:41 Potassium 3.9 mmol/L (3.6-5.0) 08/21/18 04:41 Chloride 117.8 mmol/L (98-107) H 08/21/18 04:41 Carbon Dioxide 27 mmol/L (22-30) 08/21/18 04:41 9 mmol/L 08/21/18 04:41 BUN 37 mg/dL (9-20) H 08/21/18 04:41 1.0 mg/dL (0.8-1.5) 08/21/18 04:41 Estimated GFR > 60 ml/min 08/21/18 04:41 37 % 08/21/18 04:41 Glucose 233 mg/dL (75-100) H 08/21/18 04:41 POC Glucose 228 (70-105) H 08/22/18 12:05 Lactic Acid 2.80 mmol/L (0.7-2.0) H* 08/13/18 12:53 Calcium 7.9 mg/dL (8.4-10.2) L 08/21/18 04:41 Phosphorus 3.90 mg/dL (2.5-4.5) 08/15/18 04:05 Magnesium 2.20 mg/dL (1.7-2.3) 08/15/18 04:05 0.30 mg/dL (0.1-1.2) 08/14/18 04:03 AST 50 units/L (5-40) H 08/14/18 04:03 ALT 55 units/L (7-56) 08/14/18 04:03 219 units/L (35-129) H 08/14/18 04:03 309 units/L (55-170) H 08/13/18 10:10 CK-MB (CK-2) 4.1 ng/mL (0.0-4.0) H 08/13/18 10:10 CK-MB (CK-2) Rel Index 1.3 (0-4) 08/13/18 10:10 0.409 ng/mL (0.00-0.029) H* 08/14/18 04:03 16.90 mg/dL (0.00-1.30) H 08/13/18 12:53 6.2 g/dL (6.3-8.2) L 08/14/18 04:03 1.9 g/dL (3.9-5) L 08/14/18 04:03 0.4 % 08/14/18 04:03 Triglycerides 62 mg/dL (2-149) 08/13/18 00:32 Cholesterol 46 mg/dL (50-199) L 08/13/18 00:32 17 mg/dL (50-130) L 08/13/18 00:32 6 mg/dL (40-59) L 08/13/18 00:32 7.66 % 08/13/18 00:32 Yellow (Yellow) 08/13/18 00:50 Cloudy (Clear) 08/13/18 00:50 7.0 (5.0-7.0) 08/13/18 00:50 Ur Specific [place] 1.025 (1.003-1.030) 08/13/18 00:50 100 mg/dl mg/dL (Negative) 08/13/18 00:50 50 mg/dL (Negative) 08/13/18 00:50 Tr mg/dL (Negative) 08/13/18 00:50 Mod (Negative) 08/13/18 00:50 Neg (Negative) 08/13/18 00:50 Neg (Negative) 08/13/18 00:50 < 2.0 mg/dL (<2.0) 08/13/18 00:50 Ur Leukocyte Esterase Mod (Negative) 08/13/18 00:50 > 182.0 /HPF (0.0-6.0) H 08/13/18 00:50 > 182.0 /HPF (0.0-6.0) 08/13/18 00:50 2+ /HPF (Negative) 08/13/18 00:50 3+ /HPF 08/13/18 00:50 None seen (None Seen) 08/14/18 17:20 60.9 mg/dL (0.1-20.0) H 08/14/18 17:20 32 mmol/L 08/14/18 17:20 64 mg/dL (5-11.8) H 08/14/18 17:20 Presumptive negative 08/12/18 21:30 Presumptive negative 08/12/18 21:30 Ur Barbiturates Screen Presumptive negative 08/12/18 21:30 Ur Phencyclidine Scrn Presumptive negative 08/12/18 21:30 Ur Amphetamines Screen Presumptive negative 08/12/18 21:30 U Benzodiazepines Scrn Presumptive negative 08/12/18 21:30 Presumptive negative 08/12/18 21:30 U Marijuana (THC) Screen Presumptive negative 08/12/18 21:30 Disclamer 08/12/18 21:30 Blood Type O POSITIVE 08/15/18 15:31 Antibody Screen Negative 08/15/18 15:31 Crossmatch See Detail 08/15/18 15:31 Active Medications - Current Medications Current Medications: Generic Name Dose Route Start Last Admin Trade Name Freq PRN Reason Stop Dose Admin Acetaminophen 650 mg 08/13/18 11:40 08/13/18 16:09 Tylenol PO 650 mg Q6H PRN Administration Fever >101 Lipase/Protease/Amylase 1 each 08/13/18 15:[address] 10,500 Unit FEEDTUBE PRN PRN For Clogged Feeding Tube Aspirin 325 mg 08/17/18 10:00 08/22/18 10:41 Aspirin PO 325 mg QDAY LENCHO Administration Atorvastatin Calcium 40 mg 08/14/18 22:00 08/21/18 21:05 Lipitor PO 40 mg QHS LENCHO Administration Dextrose 50 ml 08/13/18 01:34 D50w (25gm) Syringe IV PRN PRN Hypoglycemia Enoxaparin Sodium 40 mg 08/17/18 22:00 08/21/18 21:06 Lovenox SUB-Q 40 mg QDAY@2200 LENCHO Administration Famotidine 20 mg 08/19/18 10:00 08/22/18 10:41 Pepcid PO 20 mg BID LENCHO Administration Hydrophilic Ointment 1 applic 08/13/18 12:21 Vaseline Lip Therapy TP Q2HR PRN Dry Lips Fentanyl Citrate 2,000 mcg in 100 mls @ 3.629 mls/hr 08/14/18 13:00 Fentanyl Drip Premix IV TITR LENCHO Protocol 1 MCG/KG/HR Insulin Glargine 40 units 08/22/18 10:00 08/22/18 10:42 Lantus SUB-Q 40 units DAILY LENCHO Administration Insulin Human Lispro 0 unit 08/13/18 06:00 08/22/18 12:26 Humalog SUB-Q 3 unit Q6HR LENCHO Administration Protocol Levetiracetam 1,000 mg 08/13/18 15:00 08/22/18 10:41 Keppra PO 1,000 mg BID LENCHO Administration Multi-Ingred Cream/Lotion/Oil/Oint 1 applic 08/13/18 12:21 08/17/18 00:41 Artificial Tears Ophth Oint OU 1 applic Q4HR PRN Administration Dry Eye(s) Ondansetron HCl 4 mg 08/13/18 01:34 Zofran IV Q8H PRN Nausea And Vomiting Simple Syrup 15 ml 08/13/18 15:55 Simple Syrup FEEDTUBE PRN PRN Hypoglycemia Simple Syrup 30 ml 08/13/18 15:55 Simple Syrup FEEDTUBE PRN PRN Hypoglycemia Sodium Bicarbonate 325 mg 08/13/18 15:55 Sodium Bicarbonate FEEDTUBE PRN PRN For Clogged Feeding Tube Sodium Chloride 10 ml 08/13/18 10:00 08/22/18 10:46 Sodium Chloride Flush Syringe 10 Ml IV 10 ml BID LENCHO Administration Sodium Chloride 10 ml 08/13/18 01:34 Sodium Chloride Flush Syringe 10 Ml IV PRN PRN LINE FLUSH Nutrition/Malnutrition Assess - Dietary Evaluation Nutrition/Malnutrition Findings: Nutrition Notes Start: 08/13/18 15:41 Freq: Status: Active Protocol: Document 08/22/18 09:44 LP (Rec: 08/22/18 09:45 LP [id number]) Nutrition Intervention Add Supplement/Snack (indicate name/kcal Magen BID /protein ) Provides kCal: 190 Provides Protein (gm) 5
[2018-08-22] MEDS: LOVENOX SUB-Q SCH (21:54)
[2018-08-23] MEDS: HumaLOG SUB-Q SCH ×5 (00:16→23:38)
--- NOTE | 2018-08-23 06:57 | Progress Note ---
Assessment and Plan Assessment and plan: Patient is a 77 yo man from [facility] with a history of respiratory failure, CVA with tracheostomy and Gtube who presented to [facility] ED following cardiac arrest after being found unresponsive at the long-term. Time down is unknown per records. The patient is on the vent and unresponsive, all history is obtained from the chart. Patient had multiple episodes of arrest/pulselessness. He has been on the vent since then without any improvement. Per ER notes the patient was bagged via tracheostomy which continued to have low tidal volumes and so the patient with orally intubated after which tidal volumes improved. I spoke with and daughter, Felicita and they believe that he aspirated with a mucus plug that caused the cardiopulmonary arrest not NSTEMI.. Initially, he went to [facility] may 05 to june 05, there was fluid on brain, strokes, they drain the fluid off brain. The trach was placed at [facility] and patient then went to [facility], x 7 weeks (trach was changed where capped was placed), he was doing well, talking and sitting up. Then he went to [facility], August 03 and his oral care was horrible. The trach care was horrible and not enough suctioning done. Mouth with copious amount of crud. Then on August 12, Friday, he had voice changing and mucus plugging. Followed by respiratory arrest. Cardiopulmonary arrest x 3: Most likely related to mucus plugging >NSTEMI, leading to severe irreversible brain damage: supportive care, CCM and Neurology following. Acute on chronic respiratory failure on mechanical ventilation >96 hours: Trach has been removed when patient orally intubated, continue ventilator management per pulmonology Right pneumothorax, appears to be resolved: Status post chest tube, mgt per pulmonology Anoxic brain injury and status epilepticus poa: Patient was noted to be having seizures, he received Ativan and Keppra, neurology consult appreciated, poor prognosis, poor likelihood of recovery, Hypernatremia/free water deficits, Continue free water via G-tube, sp hypotonic IV solution, monitor bmp closely Acute kidney injury likely due to ATN, poa: Nephrology consult, continue IV fluid, avoid renal toxic agents NSTEMI: treated with IV heparin, asa, statin, no bblocker due to bradycardia, hypotension, Cardiology is following Severe malnutrition: Dietitian consult, continue tube feedings UTI/sepsis: Continue antibiotics, follow-up urine cultures-->no growth x 48 hours Type 2 dm with persistent hyperglycemia: cont insulins and adjust according, on tube feedings Anemia: sp transfusion Urinary retention: continue douglass, do not remove DVT prophylaxis; patient is fully anticoagulated on heparin drip Awaiting NM brain flow scan==>reduced blood flow Next step is replace Trach and d/c back to facility, d/w Dr. Marvin, harinder is scheduled for 08/25/18 at 2pm, Friday is a holiday History Interval history: Patient was seen and examined. Follow-up on current diagnosis of respiratory failure. No overnight events reported to me. Patient intubated, not sedated. Imaging, nursing note, chart, labs and old chart reviewed. Hospitalist Physical - Physical exam Narrative exam: Gen: ill appearing, intubated not sedated, comatose HEENT: NCAT, pupil pinpoint and nonreactive Neck: supple, no adenopathy, no thyromegaly, no JVD CVS/Heart: Regular, normal S1S2, pulses present bilaterally Chest/Lungs: diminished bs bilateral, Symmetrical chest expansion, good air entry bilaterally GI/Abdomen: soft, PEG in place, +bowel sounds, Extermity/Skin: no obvious rash MSK: unresponsive Neuro: unresponsive Psych: unresponsive - Constitutional Vitals: Temp Pulse Resp BP Pulse Ox 99.4 F 69 13 129/58 99 08/23/18 02:34 08/23/18 05:30 08/23/18 05:30 08/23/18 05:30 08/23/18 05:30 General appearance: Present: other (twitching, nonresponsive, intubated) Results - Labs CBC & Chem 7: 08/21/18 04:41 08/22/18 12:15 Labs: Laboratory Last Values WBC 6.6 K/mm3 (4.5-11.0) 08/21/18 04:41 RBC 2.65 M/mm3 (3.65-5.03) L 08/21/18 04:41 Hgb 7.6 gm/dl (11.8-15.2) L 08/21/18 04:41 Hct 23.3 % (35.5-45.6) L 08/21/18 04:41 MCV 88 fl (84-94) 08/21/18 04:41 MCH 29 pg (28-32) 08/21/18 04:41 MCHC 33 % (32-34) 08/21/18 04:41 RDW 19.1 % (13.2-15.2) H 08/21/18 04:41 Plt Count 293 K/mm3 (140-440) 08/21/18 04:41 Lymph % (Auto) 13.6 % (13.4-35.0) 08/14/18 04:03 [place] % (Auto) 6.4 % (0.0-7.3) 08/14/18 04:03 Eos % (Auto) 0.1 % (0.0-4.3) 08/14/18 04:03 Baso % (Auto) 0.5 % (0.0-1.8) 08/14/18 04:03 Lymph # 2.5 K/mm3 (1.2-5.4) 08/14/18 04:03 [place] # 1.2 K/mm3 (0.0-0.8) H 08/14/18 04:03 Eos # 0.0 K/mm3 (0.0-0.4) 08/14/18 04:03 Baso # 0.1 K/mm3 (0.0-0.1) 08/14/18 04:03 Add Manual Diff Complete 08/12/18 21:44 Total Counted 100 08/12/18 21:44 Seg Neutrophils % 79.4 % (40.0-70.0) H 08/14/18 04:03 Seg Neuts % (Manual) 44.0 % (40.0-70.0) 08/12/18 21:44 0 % 08/12/18 21:44 48.0 % (13.4-35.0) H 08/12/18 21:44 Reactive Lymphs % (Man) 0 % 08/12/18 21:44 2.0 % (0.0-7.3) 08/12/18 21:44 1.0 % (0.0-4.3) 08/12/18 21:44 0 % (0.0-1.8) 08/12/18 21:44 1.0 % 08/12/18 21:44 4.0 % 08/12/18 21:44 0 % 08/12/18 21:44 0 % 08/12/18 21:44 Nucleated RBC % Not Reportable 08/12/18 21:44 Seg Neutrophils # 14.5 K/mm3 (1.8-7.7) H 08/14/18 04:03 Seg Neutrophils # Man 6.8 K/mm3 (1.8-7.7) 08/12/18 21:44 Band Neutrophils # 0.0 K/mm3 08/12/18 21:44 7.4 K/mm3 (1.2-5.4) H 08/12/18 21:44 Abs React Lymphs (Man) 0.0 K/mm3 08/12/18 21:44 0.3 K/mm3 (0.0-0.8) 08/12/18 21:44 0.2 K/mm3 (0.0-0.4) 08/12/18 21:44 0.0 K/mm3 (0.0-0.1) 08/12/18 21:44 0.2 K/mm3 08/12/18 21:44 0.6 K/mm3 08/12/18 21:44 0.0 K/mm3 08/12/18 21:44 Blast Cells # 0.0 K/mm3 08/12/18 21:44 WBC Morphology Not Reportable 08/12/18 21:44 Hypersegmented Neuts Not Reportable 08/12/18 21:44 Hyposegmented Neuts Not Reportable 08/12/18 21:44 Hypogranular Neuts Not Reportable 08/12/18 21:44 Not Reportable 08/12/18 21:44 Not Reportable 08/12/18 21:44 Not Reportable 08/12/18 21:44 Not Reportable 08/12/18 21:44 Not Reportable 08/12/18 21:44 Not Reportable 08/12/18 21:44 Consistent w auto 08/12/18 21:44 Not Reportable 08/12/18 21:44 Plt Clumps, EDTA Not Reportable 08/12/18 21:44 Not Reportable 08/12/18 21:44 Not Reportable 08/12/18 21:44 Not Reportable 08/12/18 21:44 Plt Morphology Comment Not Reportable 08/12/18 21:44 RBC Morphology Not Reportable 08/12/18 21:44 Dimorphic RBCs Not Reportable 08/12/18 21:44 Not Reportable 08/12/18 21:44 Not Reportable 08/12/18 21:44 Not Reportable 08/12/18 21:44 Few 08/12/18 21:44 Not Reportable 08/12/18 21:44 Not Reportable 08/12/18 21:44 Not Reportable 08/12/18 21:44 Not Reportable 08/12/18 21:44 Not Reportable 08/12/18 21:44 Not Reportable 08/12/18 21:44 Not Reportable 08/12/18 21:44 Few 08/12/18 21:44 Not Reportable 08/12/18 21:44 Not Reportable 08/12/18 21:44 Not Reportable 08/12/18 21:44 Not Reportable 08/12/18 21:44 Not Reportable 08/12/18 21:44 Not Reportable 08/12/18 21:44 Few 08/12/18 21:44 Acanthocytes (Spur) Not Reportable 08/12/18 21:44 Rouleaux Not Reportable 08/12/18 21:44 Not Reportable 08/12/18 21:44 Not Reportable 08/12/18 21:44 Not Reportable 08/12/18 21:44 Not Reportable 08/12/18 21:44 Hem Pathologist Commnt No 08/12/18 21:44 PT 16.5 Sec. (12.2-14.9) H 08/13/18 00:47 INR 1.25 (0.87-1.13) H 08/13/18 00:47 APTT 79.0 Sec. (24.2-36.6) H* 08/15/18 06:35 2742.50 ng/mlDDU (0-234) H 08/13/18 20:07 Heparin Anti-Xa Level 0.26 U.I./ml (0.3-0.7) L 08/16/18 20:01 POC ABG pH 7.466 (7.35-7.45) H 08/22/18 05:01 POC ABG pCO2 33.8 (35-45) L 08/22/18 05:01 POC ABG pO2 111 (80-105) H 08/22/18 05:01 POC ABG HCO3 24.4 (22-26 mml/L) 08/22/18 05:01 POC ABG Total CO2 25 (23-27mmol/L) 08/22/18 05:01 POC ABG O2 Sat 99 08/22/18 05:01 POC ABG Base Excess 1 ((-2) - (+3)mmol/L) 08/22/18 05:01 24 % 08/22/18 05:01 Sodium 147 mmol/L (137-145) H 08/22/18 12:15 Potassium 3.8 mmol/L (3.6-5.0) 08/22/18 12:15 Chloride 113.2 mmol/L (98-107) H 08/22/18 12:15 Carbon Dioxide 24 mmol/L (22-30) 08/22/18 12:15 14 mmol/L 08/22/18 12:15 BUN 36 mg/dL (9-20) H 08/22/18 12:15 0.9 mg/dL (0.8-1.5) 08/22/18 12:15 Estimated GFR > 60 ml/min 08/22/18 12:15 40 % 08/22/18 12:15 Glucose 249 mg/dL (75-100) H 08/22/18 12:15 POC Glucose 208 (70-105) H 08/23/18 05:14 Lactic Acid 2.80 mmol/L (0.7-2.0) H* 08/13/18 12:53 Calcium 8.2 mg/dL (8.4-10.2) L 08/22/18 12:15 Phosphorus 3.90 mg/dL (2.5-4.5) 08/15/18 04:05 Magnesium 2.20 mg/dL (1.7-2.3) 08/15/18 04:05 0.30 mg/dL (0.1-1.2) 08/14/18 04:03 AST 50 units/L (5-40) H 08/14/18 04:03 ALT 55 units/L (7-56) 08/14/18 04:03 219 units/L (35-129) H 08/14/18 04:03 309 units/L (55-170) H 08/13/18 10:10 CK-MB (CK-2) 4.1 ng/mL (0.0-4.0) H 08/13/18 10:10 CK-MB (CK-2) Rel Index 1.3 (0-4) 08/13/18 10:10 0.409 ng/mL (0.00-0.029) H* 08/14/18 04:03 16.90 mg/dL (0.00-1.30) H 08/13/18 12:53 6.2 g/dL (6.3-8.2) L 08/14/18 04:03 1.9 g/dL (3.9-5) L 08/14/18 04:03 0.4 % 08/14/18 04:03 Triglycerides 62 mg/dL (2-149) 08/13/18 00:32 Cholesterol 46 mg/dL (50-199) L 08/13/18 00:32 17 mg/dL (50-130) L 08/13/18 00:32 6 mg/dL (40-59) L 08/13/18 00:32 7.66 % 08/13/18 00:32 Yellow (Yellow) 08/13/18 00:50 Cloudy (Clear) 08/13/18 00:50 7.0 (5.0-7.0) 08/13/18 00:50 Ur Specific Moody 1.025 (1.003-1.030) 08/13/18 00:50 100 mg/dl mg/dL (Negative) 08/13/18 00:50 50 mg/dL (Negative) 08/13/18 00:50 Tr mg/dL (Negative) 08/13/18 00:50 Mod (Negative) 08/13/18 00:50 Neg (Negative) 08/13/18 00:50 Neg (Negative) 08/13/18 00:50 < 2.0 mg/dL (<2.0) 08/13/18 00:50 Ur Leukocyte Esterase Mod (Negative) 08/13/18 00:50 > 182.0 /HPF (0.0-6.0) H 08/13/18 00:50 > 182.0 /HPF (0.0-6.0) 08/13/18 00:50 2+ /HPF (Negative) 08/13/18 00:50 3+ /HPF 08/13/18 00:50 None seen (None Seen) 08/14/18 17:20 60.9 mg/dL (0.1-20.0) H 08/14/18 17:20 32 mmol/L 08/14/18 17:20 64 mg/dL (5-11.8) H 08/14/18 17:20 Presumptive negative 08/12/18 21:30 Presumptive negative 08/12/18 21:30 Ur Barbiturates Screen Presumptive negative 08/12/18 21:30 Ur Phencyclidine Scrn Presumptive negative 08/12/18 21:30 Ur Amphetamines Screen Presumptive negative 08/12/18 21:30 U Benzodiazepines Scrn Presumptive negative 08/12/18 21:30 Presumptive negative 08/12/18 21:30 U Marijuana (THC) Screen Presumptive negative 08/12/18 21:30 Disclamer 08/12/18 21:30 Blood Type O POSITIVE 08/15/18 15:31 Antibody Screen Negative 08/15/18 15:31 Crossmatch See Detail 08/15/18 15:31 Active Medications - Current Medications Current Medications: Generic Name Dose Route Start Last Admin Trade Name Freq PRN Reason Stop Dose Admin Acetaminophen 650 mg 08/13/18 11:40 08/13/18 16:09 Tylenol PO 650 mg Q6H PRN Administration Fever >101 Lipase/Protease/Amylase 1 each 08/13/18 15:55 Pancreaze 10,500 Unit FEEDTUBE PRN PRN For Clogged Feeding Tube Aspirin 325 mg 08/17/18 10:00 08/22/18 10:41 Aspirin PO 325 mg QDAY LENCHO Administration Atorvastatin Calcium 40 mg 08/14/18 22:00 08/22/18 21:55 Lipitor PO 40 mg QHS LENCHO Administration Dextrose 50 ml 08/13/18 01:34 D50w (25gm) Syringe IV PRN PRN Hypoglycemia Enoxaparin Sodium 40 mg 08/17/18 22:00 08/22/18 21:54 Lovenox SUB-Q 40 mg QDAY@2200 LENCHO Administration Famotidine 20 mg 08/19/18 10:00 08/22/18 21:56 Pepcid PO 20 mg BID LENCHO Administration Hydrophilic Ointment 1 applic 08/13/18 12:21 Vaseline Lip Therapy TP Q2HR PRN Dry Lips Fentanyl Citrate 2,000 mcg in 100 mls @ 3.629 mls/hr 08/14/18 13:00 Fentanyl Drip Premix IV TITR LENCHO Protocol 1 MCG/KG/HR Insulin Glargine 40 units 08/22/18 10:00 08/22/18 10:42 Lantus SUB-Q 40 units DAILY LENCHO Administration Insulin Human Lispro 0 unit 08/13/18 06:00 08/23/18 05:04 Humalog SUB-Q 3 unit Q6HR LENCHO Administration Protocol Levetiracetam 1,000 mg 08/13/18 15:00 08/22/18 21:54 Keppra PO 1,000 mg BID LENCHO Administration Multi-Ingred Cream/Lotion/Oil/Oint 1 applic 08/13/18 12:21 08/17/18 00:41 Artificial Tears Ophth Oint OU 1 applic Q4HR PRN Administration Dry Eye(s) Ondansetron HCl 4 mg 08/13/18 01:34 Zofran IV Q8H PRN Nausea And Vomiting Simple Syrup 15 ml 08/13/18 15:55 Simple Syrup FEEDTUBE PRN PRN Hypoglycemia Simple Syrup 30 ml 08/13/18 15:55 Simple Syrup FEEDTUBE PRN PRN Hypoglycemia Sodium Bicarbonate 325 mg 08/13/18 15:55 Sodium Bicarbonate FEEDTUBE PRN PRN For Clogged Feeding Tube Sodium Chloride 10 ml 08/13/18 10:00 08/22/18 21:55 Sodium Chloride Flush Syringe 10 Ml IV 10 ml BID LENCHO Administration Sodium Chloride 10 ml 08/13/18 01:34 Sodium Chloride Flush Syringe 10 Ml IV PRN PRN LINE FLUSH Nutrition/Malnutrition Assess - Dietary Evaluation Nutrition/Malnutrition Findings: Nutrition Notes Start: 08/13/18 15:41 Freq: Status: Active Protocol: Document 08/22/18 09:44 LP (Rec: 08/22/18 09:45 LP [id number]) Nutrition Intervention Add Supplement/Snack (indicate name/kcal Magen BID /protein ) Provides kCal: 190 Provides Protein (gm) 5
--- NOTE | 2018-08-23 07:00 | Progress Note ---
Assessment and Plan Acute hypoxemic respiratory failure on chronic on MVS . Status post cardiac arrest. Seizure disorder with breakthrough seizures. History of diabetes. History of cerebrovascular accident. Oropharyngeal dysphagia. History of seizures. Hypernatremia, improving CXR and ABG in the morning BMP in the morning, improving hypernatremia on current therapy -Continue free water flushes for hypernatremia - Continue MVS - Lung protective strategies - VAP bundle addressed - SBTs daily as tolerated -Supportive transfusions, to keep HgB >7g/dL - Continue Keppra for seizures with prn ativan IV for breakthrough - Continue Stress ulcer & VTE prophylaxis - Continue bronchodilators with pulmonary hygiene per RT - Continue to wean supplemental oxygen to keep O2 sats 88-90% - Chronic home medications - Replete electrolytes as indicated - Monitor renal indices closely - Avoid nephrotoxic agents, adjust all medications for CrCL - Strict intake and output monitoring - Continue enteral nutrition as tolerated - Continue accuchecks with glycemic control - Target glucose of 140-180 mg/dL - Maintenance of sleep -wake cycle - Mobility as tolerated by hemodynamics - Influenza and pneumonia vaccination per protocol ....discussed with RT/RN -Trachesotomy placement early next week PROGNOSIS: GUARDED -POOR CONDITION: CRITICAL CODE STATUS: FULL CODE The high probability of a clinically significant, sudden or life-threatening deterioration of the [respiratory, neurology, renal] system(s) required my full and direct attention, intervention and personal management. The aggregate critical care time was [31] minutes without overlap. Time includes spent on; [x] Data Review and interpretation [x] Patient assessment and monitoring of vital signs [x] Documentation [x] Medication orders and management Subjective Date of service: 08/23/18 Principal diagnosis: Acute hypoxemic resp failure; S/P cardiac arrest; Seizures; DM II; H/O CVA Interval history: Patient is seen today for: Acute hypoxemic respiratory failure on chronic; Status post cardiac arrest; Seizure disorder with breakthrough seizures; History of diabetes; History of cerebrovascular accident; Oropharyngeal dysphagia; History of seizures. Seen and examined at bedside; 24hour events reviewed; nursing and respiratory care staff consulted; no adverse overnight events reported to me; remains on MVS; AMS is persistent; no emesis or overt aspiration; no fevers or chills reported and no seizure activity, no vomiting, no acute overnight events For possible trachesotomy on Friday Objective Vital Signs - 12hr 08/22/18 08/22/18 08/22/18 19:09 19:20 19:30 Temperature Pulse Rate 69 59 L Pulse Rate [ 61 From Monitor] Respiratory 12 11 L Rate Blood Pressure 143/61 O2 Sat by Pulse 100 100 Oximetry 08/22/18 08/22/18 08/22/18 19:37 19:53 20:00 Temperature 98.2 F Pulse Rate 59 L 61 Pulse Rate [ From Monitor] Respiratory 14 11 L Rate Blood Pressure 143/61 141/59 O2 Sat by Pulse 100 100 Oximetry 08/22/18 08/22/18 08/22/18 20:25 20:30 21:00 Temperature Pulse Rate 62 61 63 Pulse Rate [ 61 From Monitor] Respiratory 12 11 L 11 L Rate Blood Pressure 138/56 130/59 O2 Sat by Pulse 100 100 100 Oximetry 08/22/18 08/22/18 08/22/18 21:30 22:00 22:25 Temperature Pulse Rate 62 61 64 Pulse Rate [ 61 From Monitor] Respiratory 10 L 12 12 Rate Blood Pressure 131/55 135/57 O2 Sat by Pulse 100 100 100 Oximetry 08/22/18 08/22/18 08/22/18 22:30 22:55 23:00 Temperature Pulse Rate 61 62 63 Pulse Rate [ From Monitor] Respiratory 12 11 L 12 Rate Blood Pressure 131/56 131/56 133/58 O2 Sat by Pulse 100 100 100 Oximetry 08/22/18 08/22/18 08/23/18 23:30 23:36 00:00 Temperature 98.6 F Pulse Rate 64 63 69 Pulse Rate [ From Monitor] Respiratory 11 L 14 13 Rate Blood Pressure 133/58 138/59 123/54 O2 Sat by Pulse 100 100 Oximetry 08/23/18 08/23/18 08/23/18 00:30 01:00 01:25 Temperature Pulse Rate 62 66 64 Pulse Rate [ 64 From Monitor] Respiratory 13 11 L 12 Rate Blood Pressure 131/56 128/56 O2 Sat by Pulse 100 100 100 Oximetry 08/23/18 08/23/18 08/23/18 01:30 02:00 02:20 Temperature Pulse Rate 65 66 59 L Pulse Rate [ From Monitor] Respiratory 13 13 Rate Blood Pressure 124/53 134/58 O2 Sat by Pulse 100 100 Oximetry 05/26/19 05/26/19 05/26/19 02:30 02:34 03:00 Temperature 99.4 F Pulse Rate 67 68 Pulse Rate [ From Monitor] Respiratory 11 L 11 L Rate Blood Pressure 130/55 136/55 O2 Sat by Pulse 99 99 Oximetry 08/23/18 08/23/18 08/23/18 03:25 03:30 04:00 Temperature Pulse Rate 64 67 67 Pulse Rate [ 64 From Monitor] Respiratory 12 12 12 Rate Blood Pressure 138/54 140/53 O2 Sat by Pulse 100 99 100 Oximetry 08/23/18 08/23/18 08/23/18 04:20 04:30 05:00 Temperature Pulse Rate 70 68 70 Pulse Rate [ From Monitor] Respiratory 12 14 Rate Blood Pressure 127/53 140/53 O2 Sat by Pulse 99 99 Oximetry 08/23/18 08/23/18 05:05 05:30 Temperature Pulse Rate 70 69 Pulse Rate [ 64 From Monitor] Respiratory 12 13 Rate Blood Pressure 129/58 O2 Sat by Pulse 100 99 Oximetry Constitutional: no acute distress, other (Elderly looking AAM, normocephalic resting in bed on MVS) Eyes: non-icteric ENT: oropharynx moist, other (ETT 23-24 cm JOVI) Neck: supple, no lymphadenopathy, no JVD, other (no thyromegaly) Effort: mildly labored Ascultation: Bilateral: diminished breath sounds, rhonchi Percussion: Bilateral: not dull Cardiovascular: regular rate and rhythm, other (S1,S2, no murmurs, gallops or rubs) Gastrointestinal: normoactive bowel sounds, soft, non-tender, non-distended Integumentary: normal Extremities: no cyanosis, pulses normal, no ischemia or petechiae, edema (trace ) Neurologic: unable to assess Psychiatric: other (unable to assess) CBC and BMP: 08/21/18 04:41 08/22/18 12:15 ABG, PT/INR, D-dimer: ABG POC ABG pH 7.466 (7.35-7.45) H 08/22/18 05:01 POC ABG pCO2 33.8 (35-45) L 08/22/18 05:01 POC ABG pO2 111 (80-105) H 08/22/18 05:01 POC ABG HCO3 24.4 (22-26 mml/L) 08/22/18 05:01 POC ABG Total CO2 25 (23-27mmol/L) 08/22/18 05:01 POC ABG O2 Sat 99 08/22/18 05:01 PT/INR, D-dimer PT 16.5 Sec. (12.2-14.9) H 08/13/18 00:47 INR 1.25 (0.87-1.13) H 08/13/18 00:47 2742.50 ng/mlDDU (0-234) H 08/13/18 20:07 Abnormal lab findings: Abnormal Labs 08/12/18 08/12/18 08/12/18 21:44 21:44 21:44 WBC 15.5 H RBC 3.12 L Hgb 8.8 L Hct 28.9 L MCHC 31 L RDW 19.5 H [place] # Seg Neutrophils % Lymphocytes % (Manual) 48.0 H Seg Neutrophils # Lymphocytes # (Manual) 7.4 H PT 17.8 H INR 1.37 H APTT D-Dimer Heparin Anti-Xa Level POC ABG pH POC ABG pCO2 POC ABG pO2 Sodium 159 H Potassium Chloride 118.5 H Carbon Dioxide BUN 34 H Creatinine Glucose 161 H POC Glucose Lactic Acid Calcium Magnesium AST Alkaline Phosphatase Total Creatine Kinase CK-MB (CK-2) Troponin T 0.105 H* C-Reactive Protein Total Protein Albumin Cholesterol LDL Cholesterol Direct HDL Cholesterol Urine WBC (Auto) Urine Creatinine Urine Total Protein Crossmatch 08/13/18 08/13/18 08/13/18 00:32 00:47 00:47 WBC RBC Hgb 9.2 L Hct 29.6 L MCHC RDW [place] # Seg Neutrophils % Lymphocytes % (Manual) Seg Neutrophils # Lymphocytes # (Manual) PT 16.5 H INR 1.25 H APTT 37.3 H D-Dimer Heparin Anti-Xa Level POC ABG pH POC ABG pCO2 POC ABG pO2 Sodium Potassium Chloride Carbon Dioxide BUN Creatinine Glucose POC Glucose Lactic Acid Calcium Magnesium AST Alkaline Phosphatase Total Creatine Kinase 211 H CK-MB (CK-2) 7.7 H Troponin T 0.169 H* D C-Reactive Protein Total Protein Albumin Cholesterol 46 L LDL Cholesterol Direct 17 L HDL Cholesterol 6 L Urine WBC (Auto) Urine Creatinine Urine Total Protein Crossmatch 08/13/18 08/13/18 08/13/18 00:50 02:25 05:34 WBC RBC Hgb Hct MCHC RDW [place] # Seg Neutrophils % Lymphocytes % (Manual) Seg Neutrophils # Lymphocytes # (Manual) PT INR APTT D-Dimer Heparin Anti-Xa Level POC ABG pH 7.503 H POC ABG pCO2 POC ABG pO2 253 H Sodium Potassium Chloride Carbon Dioxide BUN Creatinine Glucose POC Glucose Lactic Acid Calcium Magnesium AST Alkaline Phosphatase Total Creatine Kinase 311 H CK-MB (CK-2) 10.4 H Troponin T 0.283 H* D C-Reactive Protein Total Protein Albumin Cholesterol LDL Cholesterol Direct HDL Cholesterol Urine WBC (Auto) > 182.0 H Urine Creatinine Urine Total Protein Crossmatch 08/13/18 08/13/18 08/13/18 06:35 10:10 10:10 WBC RBC Hgb Hct MCHC RDW [place] # Seg Neutrophils % Lymphocytes % (Manual) Seg Neutrophils # Lymphocytes # (Manual) PT INR APTT D-Dimer Heparin Anti-Xa Level POC ABG pH 7.554 H POC ABG pCO2 33.5 L POC ABG pO2 220 H Sodium 158 H Potassium Chloride 117.1 H Carbon Dioxide BUN 53 H Creatinine 2.0 H Glucose 247 H POC Glucose Lactic Acid Calcium 8.2 L Magnesium AST Alkaline Phosphatase Total Creatine Kinase 309 H CK-MB (CK-2) 4.1 H Troponin T 0.470 H* D C-Reactive Protein Total Protein Albumin Cholesterol LDL Cholesterol Direct HDL Cholesterol Urine WBC (Auto) Urine Creatinine Urine Total Protein Crossmatch 08/13/18 08/13/18 08/13/18 12:53 12:53 17:55 WBC RBC Hgb Hct MCHC RDW [place] # Seg Neutrophils % Lymphocytes % (Manual) Seg Neutrophils # Lymphocytes # (Manual) PT INR APTT D-Dimer Heparin Anti-Xa Level POC ABG pH POC ABG pCO2 POC ABG pO2 Sodium Potassium Chloride Carbon Dioxide BUN Creatinine Glucose POC Glucose 308 H Lactic Acid 2.80 H* Calcium Magnesium 2.50 H AST Alkaline Phosphatase Total Creatine Kinase CK-MB (CK-2) Troponin T C-Reactive Protein 16.90 H Total Protein Albumin Cholesterol LDL Cholesterol Direct HDL Cholesterol Urine WBC (Auto) Urine Creatinine Urine Total Protein Crossmatch 08/13/18 08/13/18 08/13/18 20:07 21:16 23:17 WBC RBC Hgb Hct MCHC RDW [place] # Seg Neutrophils % Lymphocytes % (Manual) Seg Neutrophils # Lymphocytes # (Manual) PT INR APTT D-Dimer 2742.50 H Heparin Anti-Xa Level POC ABG pH 7.483 H POC ABG pCO2 30.8 L POC ABG pO2 150 H Sodium Potassium Chloride Carbon Dioxide BUN Creatinine Glucose POC Glucose 245 H Lactic Acid Calcium Magnesium AST Alkaline Phosphatase Total Creatine Kinase CK-MB (CK-2) Troponin T C-Reactive Protein Total Protein Albumin Cholesterol LDL Cholesterol Direct HDL Cholesterol Urine WBC (Auto) Urine Creatinine Urine Total Protein Crossmatch 08/14/18 08/14/18 08/14/18 04:03 04:03 04:56 WBC 18.2 H RBC 2.62 L Hgb 7.3 L Hct 24.5 L MCHC RDW 18.9 H [place] # 1.2 H Seg Neutrophils % 79.4 H Lymphocytes % (Manual) Seg Neutrophils # 14.5 H Lymphocytes # (Manual) PT INR APTT D-Dimer Heparin Anti-Xa Level POC ABG pH POC ABG pCO2 33.5 L POC ABG pO2 153 H Sodium 152 H Potassium 3.4 L Chloride 113.8 H Carbon Dioxide BUN 72 H Creatinine 2.7 H Glucose 239 H POC Glucose Lactic Acid Calcium 7.6 L Magnesium AST 50 H Alkaline Phosphatase 219 H Total Creatine Kinase CK-MB (CK-2) Troponin T 0.409 H* C-Reactive Protein Total Protein 6.2 L Albumin 1.9 L Cholesterol LDL Cholesterol Direct HDL Cholesterol Urine WBC (Auto) Urine Creatinine Urine Total Protein Crossmatch 08/14/18 08/14/18 08/14/18 05:18 13:38 15:35 WBC RBC Hgb Hct MCHC RDW [place] # Seg Neutrophils % Lymphocytes % (Manual) Seg Neutrophils # Lymphocytes # (Manual) PT INR APTT D-Dimer Heparin Anti-Xa Level POC ABG pH POC ABG pCO2 POC ABG pO2 Sodium 150 H Potassium 3.2 L Chloride 114.5 H Carbon Dioxide BUN 69 H Creatinine 2.3 H Glucose 247 H POC Glucose 242 H 296 H Lactic Acid Calcium 7.2 L Magnesium AST Alkaline Phosphatase Total Creatine Kinase CK-MB (CK-2) Troponin T C-Reactive Protein Total Protein Albumin Cholesterol LDL Cholesterol Direct HDL Cholesterol Urine WBC (Auto) Urine Creatinine Urine Total Protein Crossmatch 08/14/18 08/14/18 08/14/18 17:01 17:20 23:47 WBC RBC Hgb Hct MCHC RDW [place] # Seg Neutrophils % Lymphocytes % (Manual) Seg Neutrophils # Lymphocytes # (Manual) PT INR APTT D-Dimer Heparin Anti-Xa Level POC ABG pH POC ABG pCO2 POC ABG pO2 Sodium Potassium Chloride Carbon Dioxide BUN Creatinine Glucose POC Glucose 261 H 280 H Lactic Acid Calcium Magnesium AST Alkaline Phosphatase Total Creatine Kinase CK-MB (CK-2) Troponin T C-Reactive Protein Total Protein Albumin Cholesterol LDL Cholesterol Direct HDL Cholesterol Urine WBC (Auto) Urine Creatinine 60.9 H Urine Total Protein 64 H Crossmatch 08/15/18 08/15/18 08/15/18 04:05 04:05 04:05 WBC RBC Hgb 6.3 L Hct 19.7 L* MCHC RDW [place] # Seg Neutrophils % Lymphocytes % (Manual) Seg Neutrophils # Lymphocytes # (Manual) PT INR APTT D-Dimer Heparin Anti-Xa Level 0.17 L POC ABG pH POC ABG pCO2 POC ABG pO2 Sodium 146 H Potassium 3.0 L Chloride 110.6 H Carbon Dioxide BUN 64 H Creatinine 2.2 H Glucose 231 H POC Glucose Lactic Acid Calcium 7.1 L Magnesium AST Alkaline Phosphatase Total Creatine Kinase CK-MB (CK-2) Troponin T C-Reactive Protein Total Protein Albumin Cholesterol LDL Cholesterol Direct HDL Cholesterol Urine WBC (Auto) Urine Creatinine Urine Total Protein Crossmatch 08/15/18 08/15/18 08/15/18 05:21 05:26 06:35 WBC RBC Hgb Hct MCHC RDW [place] # Seg Neutrophils % Lymphocytes % (Manual) Seg Neutrophils # Lymphocytes # (Manual) PT INR APTT 79.0 H* D-Dimer Heparin Anti-Xa Level POC ABG pH 7.494 H POC ABG pCO2 POC ABG pO2 155 H Sodium Potassium Chloride Carbon Dioxide BUN Creatinine Glucose POC Glucose 271 H Lactic Acid Calcium Magnesium AST Alkaline Phosphatase Total Creatine Kinase CK-MB (CK-2) Troponin T C-Reactive Protein Total Protein Albumin Cholesterol LDL Cholesterol Direct HDL Cholesterol Urine WBC (Auto) Urine Creatinine Urine Total Protein Crossmatch 08/15/18 08/15/18 08/15/18 12:10 15:31 17:27 WBC RBC Hgb Hct MCHC RDW [place] # Seg Neutrophils % Lymphocytes % (Manual) Seg Neutrophils # Lymphocytes # (Manual) PT INR APTT D-Dimer Heparin Anti-Xa Level POC ABG pH POC ABG pCO2 POC ABG pO2 Sodium Potassium Chloride Carbon Dioxide BUN Creatinine Glucose POC Glucose 301 H 287 H Lactic Acid Calcium Magnesium AST Alkaline Phosphatase Total Creatine Kinase CK-MB (CK-2) Troponin T C-Reactive Protein Total Protein Albumin Cholesterol LDL Cholesterol Direct HDL Cholesterol Urine WBC (Auto) Urine Creatinine Urine Total Protein Crossmatch See Detail 08/15/18 08/15/18 08/16/18 21:41 23:45 04:13 WBC RBC Hgb Hct MCHC RDW [place] # Seg Neutrophils % Lymphocytes % (Manual) Seg Neutrophils # Lymphocytes # (Manual) PT INR APTT D-Dimer Heparin Anti-Xa Level 0.19 L POC ABG pH POC ABG pCO2 32.1 L POC ABG pO2 107 H Sodium Potassium Chloride Carbon Dioxide BUN Creatinine Glucose POC Glucose 163 H Lactic Acid Calcium Magnesium AST Alkaline Phosphatase Total Creatine Kinase CK-MB (CK-2) Troponin T C-Reactive Protein Total Protein Albumin Cholesterol LDL Cholesterol Direct HDL Cholesterol Urine WBC (Auto) Urine Creatinine Urine Total Protein Crossmatch 08/16/18 08/16/18 08/16/18 04:50 05:28 11:30 WBC RBC 2.67 L Hgb 8.1 L Hct 23.4 L MCHC 35 H RDW 18.3 H [place] # Seg Neutrophils % Lymphocytes % (Manual) Seg Neutrophils # Lymphocytes # (Manual) PT INR APTT D-Dimer Heparin Anti-Xa Level 0.19 L POC ABG pH POC ABG pCO2 POC ABG pO2 Sodium Potassium Chloride Carbon Dioxide BUN Creatinine Glucose POC Glucose 141 H Lactic Acid Calcium Magnesium AST Alkaline Phosphatase Total Creatine Kinase CK-MB (CK-2) Troponin T C-Reactive Protein Total Protein Albumin Cholesterol LDL Cholesterol Direct HDL Cholesterol Urine WBC (Auto) Urine Creatinine Urine Total Protein Crossmatch 08/16/18 08/16/18 08/16/18 11:30 12:00 12:01 WBC RBC Hgb Hct MCHC RDW [place] # Seg Neutrophils % Lymphocytes % (Manual) Seg Neutrophils # Lymphocytes # (Manual) PT INR APTT D-Dimer Heparin Anti-Xa Level 0.15 L POC ABG pH POC ABG pCO2 POC ABG pO2 Sodium Potassium Chloride 107.8 H Carbon Dioxide 21 L BUN 47 H Creatinine 1.6 H Glucose 221 H POC Glucose 267 H Lactic Acid Calcium 6.9 L Magnesium AST Alkaline Phosphatase Total Creatine Kinase CK-MB (CK-2) Troponin T C-Reactive Protein Total Protein Albumin Cholesterol LDL Cholesterol Direct HDL Cholesterol Urine WBC (Auto) Urine Creatinine Urine Total Protein Crossmatch 08/16/18 08/16/18 08/16/18 17:23 20:01 23:13 WBC RBC Hgb Hct MCHC RDW [place] # Seg Neutrophils % Lymphocytes % (Manual) Seg Neutrophils # Lymphocytes # (Manual) PT INR APTT D-Dimer Heparin Anti-Xa Level 0.26 L POC ABG pH POC ABG pCO2 POC ABG pO2 Sodium Potassium Chloride Carbon Dioxide BUN Creatinine Glucose POC Glucose 245 H 256 H Lactic Acid Calcium Magnesium AST Alkaline Phosphatase Total Creatine Kinase CK-MB (CK-2) Troponin T C-Reactive Protein Total Protein Albumin Cholesterol LDL Cholesterol Direct HDL Cholesterol Urine WBC (Auto) Urine Creatinine Urine Total Protein Crossmatch 08/17/18 08/17/18 08/17/18 04:29 04:55 05:34 WBC RBC Hgb 8.2 L Hct 24.3 L MCHC RDW [place] # Seg Neutrophils % Lymphocytes % (Manual) Seg Neutrophils # Lymphocytes # (Manual) PT INR APTT D-Dimer Heparin Anti-Xa Level POC ABG pH POC ABG pCO2 32.4 L POC ABG pO2 108 H Sodium Potassium Chloride Carbon Dioxide BUN Creatinine Glucose POC Glucose 268 H Lactic Acid Calcium Magnesium AST Alkaline Phosphatase Total Creatine Kinase CK-MB (CK-2) Troponin T C-Reactive Protein Total Protein Albumin Cholesterol LDL Cholesterol Direct HDL Cholesterol Urine WBC (Auto) Urine Creatinine Urine Total Protein Crossmatch 08/17/18 08/17/18 08/17/18 11:54 13:44 17:24 WBC RBC Hgb Hct MCHC RDW [place] # Seg Neutrophils % Lymphocytes % (Manual) Seg Neutrophils # Lymphocytes # (Manual) PT INR APTT D-Dimer Heparin Anti-Xa Level POC ABG pH POC ABG pCO2 32.7 L POC ABG pO2 142 H Sodium Potassium Chloride Carbon Dioxide BUN Creatinine Glucose POC Glucose 295 H 283 H Lactic Acid Calcium Magnesium AST Alkaline Phosphatase Total Creatine Kinase CK-MB (CK-2) Troponin T C-Reactive Protein Total Protein Albumin Cholesterol LDL Cholesterol Direct HDL Cholesterol Urine WBC (Auto) Urine Creatinine Urine Total Protein Crossmatch 08/18/18 08/18/18 08/18/18 00:05 00:59 04:15 WBC RBC Hgb Hct MCHC RDW [place] # Seg Neutrophils % Lymphocytes % (Manual) Seg Neutrophils # Lymphocytes # (Manual) PT INR APTT D-Dimer Heparin Anti-Xa Level POC ABG pH POC ABG pCO2 POC ABG pO2 115 H Sodium Potassium Chloride Carbon Dioxide BUN Creatinine Glucose POC Glucose 247 H 251 H Lactic Acid Calcium Magnesium AST Alkaline Phosphatase Total Creatine Kinase CK-MB (CK-2) Troponin T C-Reactive Protein Total Protein Albumin Cholesterol LDL Cholesterol Direct HDL Cholesterol Urine WBC (Auto) Urine Creatinine Urine Total Protein Crossmatch 08/18/18 08/18/18 08/18/18 05:02 12:20 17:51 WBC RBC Hgb Hct MCHC RDW [place] # Seg Neutrophils % Lymphocytes % (Manual) Seg Neutrophils # Lymphocytes # (Manual) PT INR APTT D-Dimer Heparin Anti-Xa Level POC ABG pH POC ABG pCO2 POC ABG pO2 Sodium Potassium Chloride Carbon Dioxide BUN Creatinine Glucose POC Glucose 282 H 209 H 261 H Lactic Acid Calcium Magnesium AST Alkaline Phosphatase Total Creatine Kinase CK-MB (CK-2) Troponin T C-Reactive Protein Total Protein Albumin Cholesterol LDL Cholesterol Direct HDL Cholesterol Urine WBC (Auto) Urine Creatinine Urine Total Protein Crossmatch 08/18/18 08/19/18 08/19/18 23:30 04:54 05:16 WBC RBC 2.62 L Hgb 7.5 L Hct 23.1 L MCHC RDW 18.1 H [place] # Seg Neutrophils % Lymphocytes % (Manual) Seg Neutrophils # Lymphocytes # (Manual) PT INR APTT D-Dimer Heparin Anti-Xa Level POC ABG pH POC ABG pCO2 POC ABG pO2 58 L Sodium Potassium Chloride Carbon Dioxide BUN Creatinine Glucose POC Glucose 231 H Lactic Acid Calcium Magnesium AST Alkaline Phosphatase Total Creatine Kinase CK-MB (CK-2) Troponin T C-Reactive Protein Total Protein Albumin Cholesterol LDL Cholesterol Direct HDL Cholesterol Urine WBC (Auto) Urine Creatinine Urine Total Protein Crossmatch 08/19/18 08/19/18 08/19/18 05:16 05:40 11:56 WBC RBC Hgb Hct MCHC RDW [place] # Seg Neutrophils % Lymphocytes % (Manual) Seg Neutrophils # Lymphocytes # (Manual) PT INR APTT D-Dimer Heparin Anti-Xa Level POC ABG pH POC ABG pCO2 POC ABG pO2 Sodium 152 H D Potassium Chloride 118.7 H Carbon Dioxide BUN 38 H Creatinine Glucose 220 H POC Glucose 227 H 213 H Lactic Acid Calcium 8.1 L D Magnesium AST Alkaline Phosphatase Total Creatine Kinase CK-MB (CK-2) Troponin T C-Reactive Protein Total Protein Albumin Cholesterol LDL Cholesterol Direct HDL Cholesterol Urine WBC (Auto) Urine Creatinine Urine Total Protein Crossmatch 08/19/18 08/19/18 08/20/18 18:37 23:32 04:38 WBC RBC Hgb Hct MCHC RDW [place] # Seg Neutrophils % Lymphocytes % (Manual) Seg Neutrophils # Lymphocytes # (Manual) PT INR APTT D-Dimer Heparin Anti-Xa Level POC ABG pH POC ABG pCO2 POC ABG pO2 140 H Sodium Potassium Chloride Carbon Dioxide BUN Creatinine Glucose POC Glucose 227 H 245 H Lactic Acid Calcium Magnesium AST Alkaline Phosphatase Total Creatine Kinase CK-MB (CK-2) Troponin T C-Reactive Protein Total Protein Albumin Cholesterol LDL Cholesterol Direct HDL Cholesterol Urine WBC (Auto) Urine Creatinine Urine Total Protein Crossmatch 08/20/18 08/20/18 08/20/18 05:31 05:37 05:37 WBC RBC 2.60 L Hgb 7.5 L Hct 22.9 L MCHC RDW 18.4 H [place] # Seg Neutrophils % Lymphocytes % (Manual) Seg Neutrophils # Lymphocytes # (Manual) PT INR APTT D-Dimer Heparin Anti-Xa Level POC ABG pH POC ABG pCO2 POC ABG pO2 Sodium 150 H Potassium Chloride 115.6 H Carbon Dioxide BUN 38 H Creatinine Glucose 276 H POC Glucose 266 H Lactic Acid Calcium 7.9 L Magnesium AST Alkaline Phosphatase Total Creatine Kinase CK-MB (CK-2) Troponin T C-Reactive Protein Total Protein Albumin Cholesterol LDL Cholesterol Direct HDL Cholesterol Urine WBC (Auto) Urine Creatinine Urine Total Protein Crossmatch 08/20/18 08/20/18 08/20/18 14:01 18:20 23:11 WBC RBC Hgb Hct MCHC RDW [place] # Seg Neutrophils % Lymphocytes % (Manual) Seg Neutrophils # Lymphocytes # (Manual) PT INR APTT D-Dimer Heparin Anti-Xa Level POC ABG pH POC ABG pCO2 POC ABG pO2 Sodium Potassium Chloride Carbon Dioxide BUN Creatinine Glucose POC Glucose 305 H 271 H 218 H Lactic Acid Calcium Magnesium AST Alkaline Phosphatase Total Creatine Kinase CK-MB (CK-2) Troponin T C-Reactive Protein Total Protein Albumin Cholesterol LDL Cholesterol Direct HDL Cholesterol Urine WBC (Auto) Urine Creatinine Urine Total Protein Crossmatch 08/21/18 08/21/18 08/21/18 04:41 04:41 06:20 WBC RBC 2.65 L Hgb 7.6 L Hct 23.3 L MCHC RDW 19.1 H [place] # Seg Neutrophils % Lymphocytes % (Manual) Seg Neutrophils # Lymphocytes # (Manual) PT INR APTT D-Dimer Heparin Anti-Xa Level POC ABG pH POC ABG pCO2 POC ABG pO2 Sodium 150 H Potassium Chloride 117.8 H Carbon Dioxide BUN 37 H Creatinine Glucose 233 H POC Glucose 262 H Lactic Acid Calcium 7.9 L Magnesium AST Alkaline Phosphatase Total Creatine Kinase CK-MB (CK-2) Troponin T C-Reactive Protein Total Protein Albumin Cholesterol LDL Cholesterol Direct HDL Cholesterol Urine WBC (Auto) Urine Creatinine Urine Total Protein Crossmatch 08/21/18 08/21/18 08/21/18 10:18 12:04 12:36 WBC RBC Hgb Hct MCHC RDW [place] # Seg Neutrophils % Lymphocytes % (Manual) Seg Neutrophils # Lymphocytes # (Manual) PT INR APTT D-Dimer Heparin Anti-Xa Level POC ABG pH POC ABG pCO2 POC ABG pO2 Sodium Potassium Chloride Carbon Dioxide BUN Creatinine Glucose POC Glucose 256 H 245 H 255 H Lactic Acid Calcium Magnesium AST Alkaline Phosphatase Total Creatine Kinase CK-MB (CK-2) Troponin T C-Reactive Protein Total Protein Albumin Cholesterol LDL Cholesterol Direct HDL Cholesterol Urine WBC (Auto) Urine Creatinine Urine Total Protein Crossmatch 08/21/18 08/21/18 08/22/18 17:36 23:29 05:01 WBC RBC Hgb Hct MCHC RDW [place] # Seg Neutrophils % Lymphocytes % (Manual) Seg Neutrophils # Lymphocytes # (Manual) PT INR APTT D-Dimer Heparin Anti-Xa Level POC ABG pH 7.466 H POC ABG pCO2 33.8 L POC ABG pO2 111 H Sodium Potassium Chloride Carbon Dioxide BUN Creatinine Glucose POC Glucose 263 H 268 H Lactic Acid Calcium Magnesium AST Alkaline Phosphatase Total Creatine Kinase CK-MB (CK-2) Troponin T C-Reactive Protein Total Protein Albumin Cholesterol LDL Cholesterol Direct HDL Cholesterol Urine WBC (Auto) Urine Creatinine Urine Total Protein Crossmatch 08/22/18 08/22/18 08/22/18 05:05 12:05 12:15 WBC RBC Hgb Hct MCHC RDW [place] # Seg Neutrophils % Lymphocytes % (Manual) Seg Neutrophils # Lymphocytes # (Manual) PT INR APTT D-Dimer Heparin Anti-Xa Level POC ABG pH POC ABG pCO2 POC ABG pO2 Sodium 147 H Potassium Chloride 113.2 H Carbon Dioxide BUN 36 H Creatinine Glucose 249 H POC Glucose 256 H 228 H Lactic Acid Calcium 8.2 L Magnesium AST Alkaline Phosphatase Total Creatine Kinase CK-MB (CK-2) Troponin T C-Reactive Protein Total Protein Albumin Cholesterol LDL Cholesterol Direct HDL Cholesterol Urine WBC (Auto) Urine Creatinine Urine Total Protein Crossmatch 08/22/18 08/23/18 08/23/18 17:30 00:03 05:05 WBC RBC Hgb Hct MCHC RDW [place] # Seg Neutrophils % Lymphocytes % (Manual) Seg Neutrophils # Lymphocytes # (Manual) PT INR APTT D-Dimer Heparin Anti-Xa Level POC ABG pH POC ABG pCO2 POC ABG pO2 Sodium Potassium Chloride Carbon Dioxide BUN Creatinine Glucose POC Glucose 291 H 259 H 247 H Lactic Acid Calcium Magnesium AST Alkaline Phosphatase Total Creatine Kinase CK-MB (CK-2) Troponin T C-Reactive Protein Total Protein Albumin Cholesterol LDL Cholesterol Direct HDL Cholesterol Urine WBC (Auto) Urine Creatinine Urine Total Protein Crossmatch 08/23/18 05:14 WBC RBC Hgb Hct MCHC RDW [place] # Seg Neutrophils % Lymphocytes % (Manual) Seg Neutrophils # Lymphocytes # (Manual) PT INR APTT D-Dimer Heparin Anti-Xa Level POC ABG pH POC ABG pCO2 POC ABG pO2 Sodium Potassium Chloride Carbon Dioxide BUN Creatinine Glucose POC Glucose 208 H Lactic Acid Calcium Magnesium AST Alkaline Phosphatase Total Creatine Kinase CK-MB (CK-2) Troponin T C-Reactive Protein Total Protein Albumin Cholesterol LDL Cholesterol Direct HDL Cholesterol Urine WBC (Auto) Urine Creatinine Urine Total Protein Crossmatch Allied health notes reviewed: nursing
[2018-08-23] MEDS: SODIUM CHLORIDE FLUSH SYRINGE 10 ML IV SCH ×2 (10:00→23:35)
--- NOTE | 2018-08-23 10:06 | Progress Note ---
Subjective Date of service: 08/23/18 Principal diagnosis: Acute hypoxemic resp failure; S/P cardiac arrest; Seizures; DM II; H/O CVA Interval history: interval note about clinical state had very lengthy conversation with Dr. Resendiz about the cerebral blood flow study and the area of intact cerebral blood flow could be external carotid meaning it is not even cerebral ... actually no way to know except in this case not predictive of recovery... intracranial flow can be totally meningeal and not intracerebral but can not use blood flow for brain declaration... likely we have persistent coma condition this discussion is docuemnted Objective - Vital Sign Vital Signs - 12hr 08/22/18 08/22/18 08/22/18 22:25 22:30 22:55 Temperature Pulse Rate 64 61 62 Pulse Rate [ 61 From Monitor] Respiratory 12 12 11 L Rate Blood Pressure 131/56 131/56 O2 Sat by Pulse 100 100 100 Oximetry 08/22/18 08/22/18 08/22/18 23:00 23:30 23:36 Temperature 98.6 F Pulse Rate 63 64 63 Pulse Rate [ From Monitor] Respiratory 12 11 L 14 Rate Blood Pressure 133/58 133/58 138/59 O2 Sat by Pulse 100 100 Oximetry 08/23/18 08/23/18 08/23/18 00:00 00:30 01:00 Temperature Pulse Rate 69 62 66 Pulse Rate [ From Monitor] Respiratory 13 13 11 L Rate Blood Pressure 123/54 131/56 128/56 O2 Sat by Pulse 100 100 100 Oximetry 08/23/18 08/23/18 08/23/18 01:25 01:30 02:00 Temperature Pulse Rate 64 65 66 Pulse Rate [ 64 From Monitor] Respiratory 12 13 13 Rate Blood Pressure 124/53 134/58 O2 Sat by Pulse 100 100 100 Oximetry 08/23/18 08/23/18 08/23/18 02:20 02:30 02:34 Temperature 99.4 F Pulse Rate 59 L 67 Pulse Rate [ From Monitor] Respiratory 11 L Rate Blood Pressure 130/55 O2 Sat by Pulse 99 Oximetry 08/23/18 08/23/18 08/23/18 03:00 03:25 03:30 Temperature Pulse Rate 68 64 67 Pulse Rate [ 64 From Monitor] Respiratory 11 L 12 12 Rate Blood Pressure 136/55 138/54 O2 Sat by Pulse 99 100 99 Oximetry 08/23/18 08/23/18 08/23/18 04:00 04:20 04:30 Temperature Pulse Rate 67 70 68 Pulse Rate [ From Monitor] Respiratory 12 12 Rate Blood Pressure 140/53 127/53 O2 Sat by Pulse 100 99 Oximetry 08/23/18 08/23/18 08/23/18 05:00 05:05 05:30 Temperature Pulse Rate 70 70 69 Pulse Rate [ 64 From Monitor] Respiratory 14 12 13 Rate Blood Pressure 140/53 129/58 O2 Sat by Pulse 99 100 99 Oximetry 08/23/18 08/23/18 07:57 08:09 Temperature Pulse Rate 66 66 Pulse Rate [ From Monitor] Respiratory 11 L Rate Blood Pressure 127/57 137/56 O2 Sat by Pulse 100 100 Oximetry - Laboratory Findings CBC and BMP: 08/21/18 04:41 08/22/18 12:15 Abnormal Lab Findings: Abnormal Labs 08/12/18 08/12/18 08/12/18 21:44 21:44 21:44 WBC 15.5 H RBC 3.12 L Hgb 8.8 L Hct 28.9 L MCHC 31 L RDW 19.5 H [place] # Seg Neutrophils % Lymphocytes % (Manual) 48.0 H Seg Neutrophils # Lymphocytes # (Manual) 7.4 H PT 17.8 H INR 1.37 H APTT D-Dimer Heparin Anti-Xa Level POC ABG pH POC ABG pCO2 POC ABG pO2 Sodium 159 H Potassium Chloride 118.5 H Carbon Dioxide BUN 34 H Creatinine Glucose 161 H POC Glucose Lactic Acid Calcium Magnesium AST Alkaline Phosphatase Total Creatine Kinase CK-MB (CK-2) Troponin T 0.105 H* C-Reactive Protein Total Protein Albumin Cholesterol LDL Cholesterol Direct HDL Cholesterol Urine WBC (Auto) Urine Creatinine Urine Total Protein Crossmatch 08/13/18 08/13/18 08/13/18 00:32 00:47 00:47 WBC RBC Hgb 9.2 L Hct 29.6 L MCHC RDW [place] # Seg Neutrophils % Lymphocytes % (Manual) Seg Neutrophils # Lymphocytes # (Manual) PT 16.5 H INR 1.25 H APTT 37.3 H D-Dimer Heparin Anti-Xa Level POC ABG pH POC ABG pCO2 POC ABG pO2 Sodium Potassium Chloride Carbon Dioxide BUN Creatinine Glucose POC Glucose Lactic Acid Calcium Magnesium AST Alkaline Phosphatase Total Creatine Kinase 211 H CK-MB (CK-2) 7.7 H Troponin T 0.169 H* D C-Reactive Protein Total Protein Albumin Cholesterol 46 L LDL Cholesterol Direct 17 L HDL Cholesterol 6 L Urine WBC (Auto) Urine Creatinine Urine Total Protein Crossmatch 08/13/18 08/13/18 08/13/18 00:50 02:25 05:34 WBC RBC Hgb Hct MCHC RDW [place] # Seg Neutrophils % Lymphocytes % (Manual) Seg Neutrophils # Lymphocytes # (Manual) PT INR APTT D-Dimer Heparin Anti-Xa Level POC ABG pH 7.503 H POC ABG pCO2 POC ABG pO2 253 H Sodium Potassium Chloride Carbon Dioxide BUN Creatinine Glucose POC Glucose Lactic Acid Calcium Magnesium AST Alkaline Phosphatase Total Creatine Kinase 311 H CK-MB (CK-2) 10.4 H Troponin T 0.283 H* D C-Reactive Protein Total Protein Albumin Cholesterol LDL Cholesterol Direct HDL Cholesterol Urine WBC (Auto) > 182.0 H Urine Creatinine Urine Total Protein Crossmatch 08/13/18 08/13/18 08/13/18 06:35 10:10 10:10 WBC RBC Hgb Hct MCHC RDW [place] # Seg Neutrophils % Lymphocytes % (Manual) Seg Neutrophils # Lymphocytes # (Manual) PT INR APTT D-Dimer Heparin Anti-Xa Level POC ABG pH 7.554 H POC ABG pCO2 33.5 L POC ABG pO2 220 H Sodium 158 H Potassium Chloride 117.1 H Carbon Dioxide BUN 53 H Creatinine 2.0 H Glucose 247 H POC Glucose Lactic Acid Calcium 8.2 L Magnesium AST Alkaline Phosphatase Total Creatine Kinase 309 H CK-MB (CK-2) 4.1 H Troponin T 0.470 H* D C-Reactive Protein Total Protein Albumin Cholesterol LDL Cholesterol Direct HDL Cholesterol Urine WBC (Auto) Urine Creatinine Urine Total Protein Crossmatch 08/13/18 08/13/18 08/13/18 12:53 12:53 17:55 WBC RBC Hgb Hct MCHC RDW [place] # Seg Neutrophils % Lymphocytes % (Manual) Seg Neutrophils # Lymphocytes # (Manual) PT INR APTT D-Dimer Heparin Anti-Xa Level POC ABG pH POC ABG pCO2 POC ABG pO2 Sodium Potassium Chloride Carbon Dioxide BUN Creatinine Glucose POC Glucose 308 H Lactic Acid 2.80 H* Calcium Magnesium 2.50 H AST Alkaline Phosphatase Total Creatine Kinase CK-MB (CK-2) Troponin T C-Reactive Protein 16.90 H Total Protein Albumin Cholesterol LDL Cholesterol Direct HDL Cholesterol Urine WBC (Auto) Urine Creatinine Urine Total Protein Crossmatch 08/13/18 08/13/18 08/13/18 20:07 21:16 23:17 WBC RBC Hgb Hct MCHC R[place] # Seg Neutrophils % Lymphocytes % (Manual) Seg Neutrophils # Lymphocytes # (Manual) PT INR APTT D-Dimer 2742.50 H Heparin Anti-Xa Level POC ABG pH 7.483 H POC ABG pCO2 30.8 L POC ABG pO2 150 H Sodium Potassium Chloride Carbon Dioxide BUN Creatinine Glucose POC Glucose 245 H Lactic Acid Calcium Magnesium AST Alkaline Phosphatase Total Creatine Kinase CK-MB (CK-2) Troponin T C-Reactive Protein Total Protein Albumin Cholesterol LDL Cholesterol Direct HDL Cholesterol Urine WBC (Auto) Urine Creatinine Urine Total Protein Crossmatch 08/14/18 08/14/18 08/14/18 04:03 04:03 04:56 WBC 18.2 H RBC 2.62 L Hgb 7.3 L Hct 24.5 L MCHC RDW 18.9 [place] # 1.2 H Seg Neutrophils % 79.4 H Lymphocytes % (Manual) Seg Neutrophils # 14.5 H Lymphocytes # (Manual) PT INR APTT D-Dimer Heparin Anti-Xa Level POC ABG pH POC ABG pCO2 33.5 L POC ABG pO2 153 H Sodium 152 H Potassium 3.4 L Chloride 113.8 H Carbon Dioxide BUN 72 H Creatinine 2.7 H Glucose 239 H POC Glucose Lactic Acid Calcium 7.6 L Magnesium AST 50 H Alkaline Phosphatase 219 H Total Creatine Kinase CK-MB (CK-2) Troponin T 0.409 H* C-Reactive Protein Total Protein 6.2 L Albumin 1.9 L Cholesterol LDL Cholesterol Direct HDL Cholesterol Urine WBC (Auto) Urine Creatinine Urine Total Protein Crossmatch 08/14/18 08/14/18 08/14/18 05:18 13:38 15:35 WBC RBC Hgb Hct MCHC RDW [place] # Seg Neutrophils % Lymphocytes % (Manual) Seg Neutrophils # Lymphocytes # (Manual) PT INR APTT D-Dimer Heparin Anti-Xa Level POC ABG pH POC ABG pCO2 POC ABG pO2 Sodium 150 H Potassium 3.2 L Chloride 114.5 H Carbon Dioxide BUN 69 H Creatinine 2.3 H Glucose 247 H POC Glucose 242 H 296 H Lactic Acid Calcium 7.2 L Magnesium AST Alkaline Phosphatase Total Creatine Kinase CK-MB (CK-2) Troponin T C-Reactive Protein Total Protein Albumin Cholesterol LDL Cholesterol Direct HDL Cholesterol Urine WBC (Auto) Urine Creatinine Urine Total Protein Crossmatch 08/14/18 08/14/18 08/14/18 17:01 17:20 23:47 WBC RBC Hgb Hct MCHC RDW [place] # Seg Neutrophils % Lymphocytes % (Manual) Seg Neutrophils # Lymphocytes # (Manual) PT INR APTT D-Dimer Heparin Anti-Xa Level POC ABG pH POC ABG pCO2 POC ABG pO2 Sodium Potassium Chloride Carbon Dioxide BUN Creatinine Glucose POC Glucose 261 H 280 H Lactic Acid Calcium Magnesium AST Alkaline Phosphatase Total Creatine Kinase CK-MB (CK-2) Troponin T C-Reactive Protein Total Protein Albumin Cholesterol LDL Cholesterol Direct HDL Cholesterol Urine WBC (Auto) Urine Creatinine 60.9 H Urine Total Protein 64 H Crossmatch 08/15/18 08/15/18 08/15/18 04:05 04:05 04:05 WBC RBC Hgb 6.3 L Hct 19.7 L* MCHC RDW [place] # Seg Neutrophils % Lymphocytes % (Manual) Seg Neutrophils # Lymphocytes # (Manual) PT INR APTT D-Dimer Heparin Anti-Xa Level 0.17 L POC ABG pH POC ABG pCO2 POC ABG pO2 Sodium 146 H Potassium 3.0 L Chloride 110.6 H Carbon Dioxide BUN 64 H Creatinine 2.2 H Glucose 231 H POC Glucose Lactic Acid Calcium 7.1 L Magnesium AST Alkaline Phosphatase Total Creatine Kinase CK-MB (CK-2) Troponin T C-Reactive Protein Total Protein Albumin Cholesterol LDL Cholesterol Direct HDL Cholesterol Urine WBC (Auto) Urine Creatinine Urine Total Protein Crossmatch 08/15/18 08/15/18 08/15/18 05:21 05:26 06:35 WBC RBC Hgb Hct MCHC RDW [place] # Seg Neutrophils % Lymphocytes % (Manual) Seg Neutrophils # Lymphocytes # (Manual) PT INR APTT 79.0 H* D-Dimer Heparin Anti-Xa Level POC ABG pH 7.494 H POC ABG pCO2 POC ABG pO2 155 H Sodium Potassium Chloride Carbon Dioxide BUN Creatinine Glucose POC Glucose 271 H Lactic Acid Calcium Magnesium AST Alkaline Phosphatase Total Creatine Kinase CK-MB (CK-2) Troponin T C-Reactive Protein Total Protein Albumin Cholesterol LDL Cholesterol Direct HDL Cholesterol Urine WBC (Auto) Urine Creatinine Urine Total Protein Crossmatch 08/15/18 08/15/18 08/15/18 12:10 15:31 17:27 WBC RBC Hgb Hct MCHC RDW [place] # Seg Neutrophils % Lymphocytes % (Manual) Seg Neutrophils # Lymphocytes # (Manual) PT INR APTT D-Dimer Heparin Anti-Xa Level POC ABG pH POC ABG pCO2 POC ABG pO2 Sodium Potassium Chloride Carbon Dioxide BUN Creatinine Glucose POC Glucose 301 H 287 H Lactic Acid Calcium Magnesium AST Alkaline Phosphatase Total Creatine Kinase CK-MB (CK-2) Troponin T C-Reactive Protein Total Protein Albumin Cholesterol LDL Cholesterol Direct HDL Cholesterol Urine WBC (Auto) Urine Creatinine Urine Total Protein Crossmatch See Detail 08/15/18 08/15/18 08/16/18 21:41 23:45 04:13 WBC RBC Hgb Hct MCHC RDW [place] # Seg Neutrophils % Lymphocytes % (Manual) Seg Neutrophils # Lymphocytes # (Manual) PT INR APTT D-Dimer Heparin Anti-Xa Level 0.19 L POC ABG pH POC ABG pCO2 32.1 L POC ABG pO2 107 H Sodium Potassium Chloride Carbon Dioxide BUN Creatinine Glucose POC Glucose 163 H Lactic Acid Calcium Magnesium AST Alkaline Phosphatase Total Creatine Kinase CK-MB (CK-2) Troponin T C-Reactive Protein Total Protein Albumin Cholesterol LDL Cholesterol Direct HDL Cholesterol Urine WBC (Auto) Urine Creatinine Urine Total Protein Crossmatch 08/16/18 08/16/18 08/16/18 04:50 05:28 11:30 WBC RBC 2.67 L Hgb 8.1 L Hct 23.4 L MCHC 35 H RDW 18.3 H [place] # Seg Neutrophils % Lymphocytes % (Manual) Seg Neutrophils # Lymphocytes # (Manual) PT INR APTT D-Dimer Heparin Anti-Xa Level 0.19 L POC ABG pH POC ABG pCO2 POC ABG pO2 Sodium Potassium Chloride Carbon Dioxide BUN Creatinine Glucose POC Glucose 141 H Lactic Acid Calcium Magnesium AST Alkaline Phosphatase Total Creatine Kinase CK-MB (CK-2) Troponin T C-Reactive Protein Total Protein Albumin Cholesterol LDL Cholesterol Direct HDL Cholesterol Urine WBC (Auto) Urine Creatinine Urine Total Protein Crossmatch 08/16/18 08/16/18 08/16/18 11:30 12:00 12:01 WBC RBC Hgb Hct MCHC RDW [place] # Seg Neutrophils % Lymphocytes % (Manual) Seg Neutrophils # Lymphocytes # (Manual) PT INR APTT D-Dimer Heparin Anti-Xa Level 0.15 L POC ABG pH POC ABG pCO2 POC ABG pO2 Sodium Potassium Chloride 107.8 H Carbon Dioxide 21 L BUN 47 H Creatinine 1.6 H Glucose 221 H POC Glucose 267 H Lactic Acid Calcium 6.9 L Magnesium AST Alkaline Phosphatase Total Creatine Kinase CK-MB (CK-2) Troponin T C-Reactive Protein Total Protein Albumin Cholesterol LDL Cholesterol Direct HDL Cholesterol Urine WBC (Auto) Urine Creatinine Urine Total Protein Crossmatch 08/16/18 08/16/18 08/16/18 17:23 20:01 23:13 WBC RBC Hgb Hct MCHC RDW [place] # Seg Neutrophils % Lymphocytes % (Manual) Seg Neutrophils # Lymphocytes # (Manual) PT INR APTT D-Dimer Heparin Anti-Xa Level 0.26 L POC ABG pH POC ABG pCO2 POC ABG pO2 Sodium Potassium Chloride Carbon Dioxide BUN Creatinine Glucose POC Glucose 245 H 256 H Lactic Acid Calcium Magnesium AST Alkaline Phosphatase Total Creatine Kinase CK-MB (CK-2) Troponin T C-Reactive Protein Total Protein Albumin Cholesterol LDL Cholesterol Direct HDL Cholesterol Urine WBC (Auto) Urine Creatinine Urine Total Protein Crossmatch 08/17/18 08/17/18 08/17/18 04:29 04:55 05:34 WBC RBC Hgb 8.2 L Hct 24.3 L MCHC RDW [place] # Seg Neutrophils % Lymphocytes % (Manual) Seg Neutrophils # Lymphocytes # (Manual) PT INR APTT D-Dimer Heparin Anti-Xa Level POC ABG pH POC ABG pCO2 32.4 L POC ABG pO2 108 H Sodium Potassium Chloride Carbon Dioxide BUN Creatinine Glucose POC Glucose 268 H Lactic Acid Calcium Magnesium AST Alkaline Phosphatase Total Creatine Kinase CK-MB (CK-2) Troponin T C-Reactive Protein Total Protein Albumin Cholesterol LDL Cholesterol Direct HDL Cholesterol Urine WBC (Auto) Urine Creatinine Urine Total Protein Crossmatch 08/17/18 08/17/18 08/17/18 11:54 13:44 17:24 WBC RBC Hgb Hct MCHC RDW [place] # Seg Neutrophils % Lymphocytes % (Manual) Seg Neutrophils # Lymphocytes # (Manual) PT INR APTT D-Dimer Heparin Anti-Xa Level POC ABG pH POC ABG pCO2 32.7 L POC ABG pO2 142 H Sodium Potassium Chloride Carbon Dioxide BUN Creatinine Glucose POC Glucose 295 H 283 H Lactic Acid Calcium Magnesium AST Alkaline Phosphatase Total Creatine Kinase CK-MB (CK-2) Troponin T C-Reactive Protein Total Protein Albumin Cholesterol LDL Cholesterol Direct HDL Cholesterol Urine WBC (Auto) Urine Creatinine Urine Total Protein Crossmatch 08/18/18 08/18/18 08/18/18 00:05 00:59 04:15 WBC RBC Hgb Hct MCHC RDW [place] # Seg Neutrophils % Lymphocytes % (Manual) Seg Neutrophils # Lymphocytes # (Manual) PT INR APTT D-Dimer Heparin Anti-Xa Level POC ABG pH POC ABG pCO2 POC ABG pO2 115 H Sodium Potassium Chloride Carbon Dioxide BUN Creatinine Glucose POC Glucose 247 H 251 H Lactic Acid Calcium Magnesium AST Alkaline Phosphatase Total Creatine Kinase CK-MB (CK-2) Troponin T C-Reactive Protein Total Protein Albumin Cholesterol LDL Cholesterol Direct HDL Cholesterol Urine WBC (Auto) Urine Creatinine Urine Total Protein Crossmatch 08/18/18 08/18/18 08/18/18 05:02 12:20 17:51 WBC RBC Hgb Hct MCHC RDW [place] # Seg Neutrophils % Lymphocytes % (Manual) Seg Neutrophils # Lymphocytes # (Manual) PT INR APTT D-Dimer Heparin Anti-Xa Level POC ABG pH POC ABG pCO2 POC ABG pO2 Sodium Potassium Chloride Carbon Dioxide BUN Creatinine Glucose POC Glucose 282 H 209 H 261 H Lactic Acid Calcium Magnesium AST Alkaline Phosphatase Total Creatine Kinase CK-MB (CK-2) Troponin T C-Reactive Protein Total Protein Albumin Cholesterol LDL Cholesterol Direct HDL Cholesterol Urine WBC (Auto) Urine Creatinine Urine Total Protein Crossmatch 08/18/18 08/19/18 08/19/18 23:30 04:54 05:16 WBC RBC 2.62 L Hgb 7.5 L Hct 23.1 L MCHC RDW 18.1 [place] # Seg Neutrophils % Lymphocytes % (Manual) Seg Neutrophils # Lymphocytes # (Manual) PT INR APTT D-Dimer Heparin Anti-Xa Level POC ABG pH POC ABG pCO2 POC ABG pO2 58 L Sodium Potassium Chloride Carbon Dioxide BUN Creatinine Glucose POC Glucose 231 H Lactic Acid Calcium Magnesium AST Alkaline Phosphatase Total Creatine Kinase CK-MB (CK-2) Troponin T C-Reactive Protein Total Protein Albumin Cholesterol LDL Cholesterol Direct HDL Cholesterol Urine WBC (Auto) Urine Creatinine Urine Total Protein Crossmatch 08/19/18 08/19/18 08/19/18 05:16 05:40 11:56 WBC RBC Hgb Hct MCHC RDW [place] # Seg Neutrophils % Lymphocytes % (Manual) Seg Neutrophils # Lymphocytes # (Manual) PT INR APTT D-Dimer Heparin Anti-Xa Level POC ABG pH POC ABG pCO2 POC ABG pO2 Sodium 152 H D Potassium Chloride 118.7 H Carbon Dioxide BUN 38 H Creatinine Glucose 220 H POC Glucose 227 H 213 H Lactic Acid Calcium 8.1 L D Magnesium AST Alkaline Phosphatase Total Creatine Kinase CK-MB (CK-2) Troponin T C-Reactive Protein Total Protein Albumin Cholesterol LDL Cholesterol Direct HDL Cholesterol Urine WBC (Auto) Urine Creatinine Urine Total Protein Crossmatch 08/19/18 08/19/18 08/20/18 18:37 23:32 04:38 WBC RBC Hgb Hct MCHC RDW [place] # Seg Neutrophils % Lymphocytes % (Manual) Seg Neutrophils # Lymphocytes # (Manual) PT INR APTT D-Dimer Heparin Anti-Xa Level POC ABG pH POC ABG pCO2 POC ABG pO2 140 H Sodium Potassium Chloride Carbon Dioxide BUN Creatinine Glucose POC Glucose 227 H 245 H Lactic Acid Calcium Magnesium AST Alkaline Phosphatase Total Creatine Kinase CK-MB (CK-2) Troponin T C-Reactive Protein Total Protein Albumin Cholesterol LDL Cholesterol Direct HDL Cholesterol Urine WBC (Auto) Urine Creatinine Urine Total Protein Crossmatch 08/20/18 08/20/18 08/20/18 05:31 05:37 05:37 WBC RBC 2.60 L Hgb 7.5 L Hct 22.9 L MCHC RDW 18.4 [place] # Seg Neutrophils % Lymphocytes % (Manual) Seg Neutrophils # Lymphocytes # (Manual) PT INR APTT D-Dimer Heparin Anti-Xa Level POC ABG pH POC ABG pCO2 POC ABG pO2 Sodium 150 H Potassium Chloride 115.6 H Carbon Dioxide BUN 38 H Creatinine Glucose 276 H POC Glucose 266 H Lactic Acid Calcium 7.9 L Magnesium AST Alkaline Phosphatase Total Creatine Kinase CK-MB (CK-2) Troponin T C-Reactive Protein Total Protein Albumin Cholesterol LDL Cholesterol Direct HDL Cholesterol Urine WBC (Auto) Urine Creatinine Urine Total Protein Crossmatch 08/20/18 08/20/18 08/20/18 14:01 18:20 23:11 WBC RBC Hgb Hct MCHC RDW [place] # Seg Neutrophils % Lymphocytes % (Manual) Seg Neutrophils # Lymphocytes # (Manual) PT INR APTT D-Dimer Heparin Anti-Xa Level POC ABG pH POC ABG pCO2 POC ABG pO2 Sodium Potassium Chloride Carbon Dioxide BUN Creatinine Glucose POC Glucose 305 H 271 H 218 H Lactic Acid Calcium Magnesium AST Alkaline Phosphatase Total Creatine Kinase CK-MB (CK-2) Troponin T C-Reactive Protein Total Protein Albumin Cholesterol LDL Cholesterol Direct HDL Cholesterol Urine WBC (Auto) Urine Creatinine Urine Total Protein Crossmatch 08/21/18 08/21/18 08/21/18 04:41 04:41 06:20 WBC RBC 2.65 L Hgb 7.6 L Hct 23.3 L MCHC RDW 19.1 [place] # Seg Neutrophils % Lymphocytes % (Manual) Seg Neutrophils # Lymphocytes # (Manual) PT INR APTT D-Dimer Heparin Anti-Xa Level POC ABG pH POC ABG pCO2 POC ABG pO2 Sodium 150 H Potassium Chloride 117.8 H Carbon Dioxide BUN 37 H Creatinine Glucose 233 H POC Glucose 262 H Lactic Acid Calcium 7.9 L Magnesium AST Alkaline Phosphatase Total Creatine Kinase CK-MB (CK-2) Troponin T C-Reactive Protein Total Protein Albumin Cholesterol LDL Cholesterol Direct HDL Cholesterol Urine WBC (Auto) Urine Creatinine Urine Total Protein Crossmatch 08/21/18 08/21/18 08/21/18 10:18 12:04 12:36 WBC RBC Hgb Hct MCHC RDW [place] # Seg Neutrophils % Lymphocytes % (Manual) Seg Neutrophils # Lymphocytes # (Manual) PT INR APTT D-Dimer Heparin Anti-Xa Level POC ABG pH POC ABG pCO2 POC ABG pO2 Sodium Potassium Chloride Carbon Dioxide BUN Creatinine Glucose POC Glucose 256 H 245 H 255 H Lactic Acid Calcium Magnesium AST Alkaline Phosphatase Total Creatine Kinase CK-MB (CK-2) Troponin T C-Reactive Protein Total Protein Albumin Cholesterol LDL Cholesterol Direct HDL Cholesterol Urine WBC (Auto) Urine Creatinine Urine Total Protein Crossmatch 08/21/18 08/21/18 08/22/18 17:36 23:29 05:01 WBC RBC Hgb Hct MCHC RDW [place] # Seg Neutrophils % Lymphocytes % (Manual) Seg Neutrophils # Lymphocytes # (Manual) PT INR APTT D-Dimer Heparin Anti-Xa Level POC ABG pH 7.466 H POC ABG pCO2 33.8 L POC ABG pO2 111 H Sodium Potassium Chloride Carbon Dioxide BUN Creatinine Glucose POC Glucose 263 H 268 H Lactic Acid Calcium Magnesium AST Alkaline Phosphatase Total Creatine Kinase CK-MB (CK-2) Troponin T C-Reactive Protein Total Protein Albumin Cholesterol LDL Cholesterol Direct HDL Cholesterol Urine WBC (Auto) Urine Creatinine Urine Total Protein Crossmatch 08/22/18 08/22/18 08/22/18 05:05 12:05 12:15 WBC RBC Hgb Hct MCHC RDW [place] # Seg Neutrophils % Lymphocytes % (Manual) Seg Neutrophils # Lymphocytes # (Manual) PT INR APTT D-Dimer Heparin Anti-Xa Level POC ABG pH POC ABG pCO2 POC ABG pO2 Sodium 147 H Potassium Chloride 113.2 H Carbon Dioxide BUN 36 H Creatinine Glucose 249 H POC Glucose 256 H 228 H Lactic Acid Calcium 8.2 L Magnesium AST Alkaline Phosphatase Total Creatine Kinase CK-MB (CK-2) Troponin T C-Reactive Protein Total Protein Albumin Cholesterol LDL Cholesterol Direct HDL Cholesterol Urine WBC (Auto) Urine Creatinine Urine Total Protein Crossmatch 08/22/18 08/23/18 08/23/18 17:30 00:03 05:05 WBC RBC Hgb Hct MCHC RDW [place] # Seg Neutrophils % Lymphocytes % (Manual) Seg Neutrophils # Lymphocytes # (Manual) PT INR APTT D-Dimer Heparin Anti-Xa Level POC ABG pH POC ABG pCO2 POC ABG pO2 Sodium Potassium Chloride Carbon Dioxide BUN Creatinine Glucose POC Glucose 291 H 259 H 247 H Lactic Acid Calcium Magnesium AST Alkaline Phosphatase Total Creatine Kinase CK-MB (CK-2) Troponin T C-Reactive Protein Total Protein Albumin Cholesterol LDL Cholesterol Direct HDL Cholesterol Urine WBC (Auto) Urine Creatinine Urine Total Protein Crossmatch 08/23/18 05:14 WBC RBC Hgb Hct MCHC RDW [place] # Seg Neutrophils % Lymphocytes % (Manual) Seg Neutrophils # Lymphocytes # (Manual) PT INR APTT D-Dimer Heparin Anti-Xa Level POC ABG pH POC ABG pCO2 POC ABG pO2 Sodium Potassium Chloride Carbon Dioxide BUN Creatinine Glucose POC Glucose 208 H Lactic Acid Calcium Magnesium AST Alkaline Phosphatase Total Creatine Kinase CK-MB (CK-2) Troponin T C-Reactive Protein Total Protein Albumin Cholesterol LDL Cholesterol Direct HDL Cholesterol Urine WBC (Auto) Urine Creatinine Urine Total Protein Crossmatch
[2018-08-23] MEDS: LANTUS SUB-Q SCH (10:38)
[2018-08-23] MEDS: ASPIRIN PO SCH (10:38)
[2018-08-23] MEDS: PEPCID PO SCH ×2 (10:38→23:34)
[2018-08-23] MEDS: KEPPRA PO SCH ×2 (10:38→23:33)
--- NOTE | 2018-08-23 16:22 | Progress Note ---
Assessment and Plan - Patient Problems (1) MAYLIN (acute kidney injury) Current Visit: Yes Status: Acute Plan to address problem: Acute kidney injury prerenal azotemia versus acute tubular necrosis. Kidney function improved. Continue volume repletion Follow-up electrolytes and renal function (2) Hypernatremia Current Visit: Yes Status: Acute Plan to address problem: Continue free water replacement . Follow-up sodium (3) Type 2 diabetes mellitus without complications Current Visit: Yes Status: Acute Plan to address problem: Blood sugar management by primary attending. (4) Essential (primary) hypertension Current Visit: Yes Status: Acute Plan to address problem: Blood pressure was low on presentation but has improved. Follow-up blood pressure Subjective Date of service: 08/23/18 Principal diagnosis: Acute hypoxemic resp failure; S/P cardiac arrest; Seizures; DM II; H/O CVA Interval history: Patient seen lying in bed in intensive care unit. Intubated on the ventilator. Unresponsive Objective - Exam Narrative Exam: Frail elderly -[place] male lying in bed intubated on ventilator HEENT: NCAT, pink oral mucous membrane Neck: Supple, no venous distention CVS: S1S2 RRR with no murmur, rub or gallop Chest: Low pitched rhonchi with diminished breath sounds Abdomen: Protuberant, soft, nontender, no organomegaly, bowel sounds are present Extremities: 2+ edema, muscle wasting Skin warm and dry Genitourinary deferred Neuro: Unresponsive - Vital Signs Vital signs: Vital Signs - 12hr 08/23/18 08/23/18 08/23/18 04:20 04:30 05:00 Pulse Rate 70 68 70 Pulse Rate [ From Monitor] Respiratory 12 14 Rate Blood Pressure 127/53 140/53 O2 Sat by Pulse 99 99 Oximetry 08/23/18 08/23/18 08/23/18 05:05 05:30 06:00 Pulse Rate 70 69 67 Pulse Rate [ 64 From Monitor] Respiratory 12 13 12 Rate Blood Pressure 129/58 129/57 O2 Sat by Pulse 100 99 99 Oximetry 08/23/18 08/23/18 08/23/18 06:30 07:00 07:30 Pulse Rate 66 68 66 Pulse Rate [ From Monitor] Respiratory 12 16 16 Rate Blood Pressure 134/57 138/62 138/62 O2 Sat by Pulse 100 100 100 Oximetry 08/23/18 08/23/18 08/23/18 07:57 08:00 08:09 Pulse Rate 66 66 66 Pulse Rate [ 66 From Monitor] Respiratory 14 11 L Rate Blood Pressure 127/57 127/57 137/56 O2 Sat by Pulse 100 100 100 Oximetry 08/23/18 08/23/18 08/23/18 08:30 09:00 09:30 Pulse Rate 66 64 64 Pulse Rate [ From Monitor] Respiratory 13 12 12 Rate Blood Pressure 136/58 137/56 133/56 O2 Sat by Pulse 99 98 98 Oximetry 08/23/18 08/23/18 08/23/18 10:00 10:30 11:00 Pulse Rate 63 62 Pulse Rate [ From Monitor] Respiratory 12 12 Rate Blood Pressure 135/58 135/58 134/58 O2 Sat by Pulse 98 99 100 Oximetry 08/23/18 08/23/18 08/23/18 11:30 12:00 12:30 Pulse Rate 64 61 61 Pulse Rate [ 61 From Monitor] Respiratory 12 12 11 L Rate Blood Pressure 136/45 151/63 134/57 O2 Sat by Pulse 100 100 95 Oximetry 08/23/18 08/23/18 08/23/18 13:00 13:30 14:00 Pulse Rate 60 61 61 Pulse Rate [ From Monitor] Respiratory 12 10 L 12 Rate Blood Pressure 134/57 141/57 137/63 O2 Sat by Pulse 99 96 97 Oximetry 08/23/18 08/23/18 08/23/18 14:30 15:00 15:30 Pulse Rate 61 61 61 Pulse Rate [ From Monitor] Respiratory 12 12 12 Rate Blood Pressure 146/62 146/62 151/65 O2 Sat by Pulse 98 100 99 Oximetry 08/23/18 08/23/18 15:46 16:00 Pulse Rate 60 Pulse Rate [ 59 L From Monitor] Respiratory 12 11 L Rate Blood Pressure 159/71 O2 Sat by Pulse 100 100 Oximetry - Lab 08/21/18 04:41 08/22/18 12:15 Most recent lab results Calcium 8.2 mg/dL (8.4-10.2) L 08/22/18 12:15 Phosphorus 3.90 mg/dL (2.5-4.5) 08/15/18 04:05 Magnesium 2.20 mg/dL (1.7-2.3) 08/15/18 04:05 60.9 mg/dL (0.1-20.0) H 08/14/18 17:20 32 mmol/L 08/14/18 17:20 64 mg/dL (5-11.8) H 08/14/18 17:20 Medications & Allergies - Medications Allergies/Adverse Reactions: Allergies No Known Allergies Allergy (Verified 08/12/18 21:47) Home Medications: Home Medications Medication Instructions Recorded Confirmed Last Taken Type Acetaminophen TAB 2 1000units FEEDTUBE Q6HR PRN 08/18/18 08/18/18 Unknown History Amantadine [Symmetrel] 100 mg FEEDTUBE DAILY 08/18/18 08/18/18 08/13/18 History Amlodipine Besylate [Norvasc] 5 mg FEEDTUBE DAILY 08/18/18 08/18/18 08/13/18 History Ascorbic Acid [Vitamin C Oral Liq] 500 mg FEEDTUBE QDAY 08/18/18 08/18/18 08/13/18 History Ascorbic Acid [Vitamin C with Fiordaliza 1 tab FEEDTUBE DAILY 08/18/18 08/18/18 Unknown History Hips] Aspirin BABY CHEW TAB 1 tab FEEDTUBE DAILY 08/18/18 08/18/18 Unknown History Aspirin BABY CHEW TAB 81 mg FEEDTUBE DAILY 08/18/18 08/18/18 08/13/18 History Atorvastatin Calcium [Lipitor] 40 mg FEEDTUBE DAILY 08/18/18 08/18/18 08/13/18 History Benazepril HCl 10 mg FEEDTUBE DAILY 08/18/18 08/18/18 08/13/18 History Bisacodyl [Dulcolax suppos] 10 mg [place] QDAY PRN 08/18/18 08/18/18 Unknown History Docusate Sodium [Colace ORAL LIQ] 100 mg FEEDTUBE QDAY PRN 08/18/18 08/18/18 Unknown History Ferrous Sulfate [Ferrous Sulfate 7.5 ml FEEDTUBE DAILY 08/18/18 08/18/18 08/13/18 History 220 MG/5 ML] Glycopyrrolate [Robinul] 2 mg FEEDTUBE Q8H 08/18/18 08/18/18 08/13/18 History Heparin Sod,Porcine/0.9 % NaCl 5,000 units SUB-Q Q8H 08/18/18 08/18/18 Unknown History [Heparin 5,000 Unit/5 ml-Ns] Insulin Glargine,Hum.rec.anlog 40 unit SQ HS 08/18/18 08/18/18 08/12/18 History [Basaglar Kwikpen U-100] Lacosamide [Vimpat] 1 tab FEEDTUBE Q12HR 08/18/18 08/18/18 Unknown History Lipitor 10 mg FEEDTUBE DAILY 08/18/18 08/18/18 Unknown History Mag-Al Plus Suspension 5 ml FEEDTUBE Q4HR PRN 08/18/18 08/19/18 Unknown History Melatonin 3 mg FEEDTUBE HS 08/18/18 08/18/18 Unknown History Sucralfate [Carafate] 1 gm FEEDTUBE Q8H 08/18/18 08/18/18 08/13/18 History Tamsulosin 0.4 mg FEEDTUBE DAILY 08/18/18 08/18/18 Unknown History guaiFENesin 200 mg FEEDTUBE Q4H PRN 08/18/18 08/18/18 Unknown History Active Medications: Generic Name Dose Route Start Last Admin Trade Name Freq PRN Reason Stop Dose Admin Acetaminophen 650 mg 08/13/18 11:40 08/13/18 16:09 Tylenol PO 650 mg Q6H PRN Administration Fever >101 Lipase/Protease/Amylase 1 each 08/13/18 15:55 Pancreaze 10,500 Unit FEEDTUBE PRN PRN For Clogged Feeding Tube Aspirin 325 mg 08/17/18 10:00 08/23/18 10:38 Aspirin PO 325 mg QDAY LENCHO Administration Atorvastatin Calcium 40 mg 08/14/18 22:00 08/22/18 21:55 Lipitor PO 40 mg QHS LENCHO Administration Dextrose 50 ml 08/13/18 01:34 D50w (25gm) Syringe IV PRN PRN Hypoglycemia Enoxaparin Sodium 40 mg 08/17/18 22:00 08/22/18 21:54 Lovenox SUB-Q 40 mg QDAY@2200 LENCHO Administration Famotidine 20 mg 08/19/18 10:00 08/23/18 10:38 Pepcid PO 20 mg BID LENCHO Administration Hydrophilic Ointment 1 applic 08/13/18 12:21 Vaseline Lip Therapy TP Q2HR PRN Dry Lips Fentanyl Citrate 2,000 mcg in 100 mls @ 3.629 mls/hr 08/14/18 13:00 Fentanyl Drip Premix IV TITR LENCHO Protocol 1 MCG/KG/HR Insulin Glargine 40 units 08/22/18 10:00 08/23/18 10:38 Lantus SUB-Q 40 units DAILY LENCHO Administration Insulin Human Lispro 0 unit 08/13/18 06:00 08/23/18 05:04 Humalog SUB-Q 3 unit Q6HR LENCHO Administration Protocol Levetiracetam 1,000 mg 08/13/18 15:00 08/23/18 10:38 Keppra PO 1,000 mg BID LENCHO Administration Multi-Ingred Cream/Lotion/Oil/Oint 1 applic 08/13/18 12:21 08/17/18 00:41 Artificial Tears Ophth Oint OU 1 applic Q4HR PRN Administration Dry Eye(s) Ondansetron HCl 4 mg 08/13/18 01:34 Zofran IV Q8H PRN Nausea And Vomiting Simple Syrup 15 ml 08/13/18 15:55 Simple Syrup FEEDTUBE PRN PRN Hypoglycemia Simple Syrup 30 ml 08/13/18 15:55 Simple Syrup FEEDTUBE PRN PRN Hypoglycemia Sodium Bicarbonate 325 mg 08/13/18 15:55 Sodium Bicarbonate FEEDTUBE PRN PRN For Clogged Feeding Tube Sodium Chloride 10 ml 08/13/18 10:00 08/22/18 21:55 Sodium Chloride Flush Syringe 10 Ml IV 10 ml BID LENCHO Administration Sodium Chloride 10 ml 08/13/18 01:34 Sodium Chloride Flush Syringe 10 Ml IV PRN PRN LINE FLUSH
[2018-08-23] MEDS: LOVENOX SUB-Q SCH (23:34)
[2018-08-24 01:46] LABS: Basophils # (Auto) 0.1 K/mm3 (0.0-0.1); Basophils % (Auto) 1.3 % (0.0-1.8); Eosinophils # (Auto) 0.2 K/mm3 (0.0-0.4); Eosinophils % (Auto) 2.6 % (0.0-4.3); Hematocrit 25.4 % (35.5-45.6); Hemoglobin 8.3 gm/dl (11.8-15.2); Lymphocytes # (Auto) 1.4 K/mm3 (1.2-5.4); Lymphocytes % (Auto) 17.1 % (13.4-35.0); Mean Corpuscular HGB Conc 33 % (32-34); Mean Corpuscular Volume 87 fl (84-94); Monocytes # (Auto) 0.7 K/mm3 (0.0-0.8); Monocytes % (Auto) 9.2 % (0.0-7.3); Platelet Count 330 K/mm3 (140-440); Red Blood Count 2.92 M/mm3 (3.65-5.03); Red Cell Distribution Width 18.9 % (13.2-15.2)
--- NOTE | 2018-08-24 03:09 | XRay Report ---
PROCEDURE: XR CHEST 1V AP TECHNIQUE: Chest radiograph single view. HISTORY: Respiratory failure COMPARISONS: 08/20/2018 . FINDINGS: Heart: Normal. Mediastinum/Vessels: Normal. Lungs/Pleural space: There is minimal atelectatic changes in left lung base. Pleural fluid is not se en.. Bony thorax: No acute osseous abnormality. Life support devices: The ET tube and right-sided PICC line are in proper position.. IMPRESSION: Minimal atelectatic changes in left lung base. No evidence of congestion or pleural effu rosio.. This document is electronically signed by Reynold Garcia MD., Aug 24 2018 03:08:01 AM ET
[2018-08-24 06:25] LABS: Hematocrit 25.2 % (35.5-45.6); Hemoglobin 8.2 gm/dl (11.8-15.2); Mean Corpuscular HGB Conc 33 % (32-34); Mean Corpuscular Volume 87 fl (84-94); Platelet Count 317 K/mm3 (140-440); Red Cell Distribution Width 18.6 % (13.2-15.2)
--- NOTE | 2018-08-24 06:39 | Progress Note ---
Assessment and Plan Acute hypoxemic respiratory failure on chronic on MVS . Status post cardiac arrest. Seizure disorder with breakthrough seizures. History of diabetes. History of cerebrovascular accident. Oropharyngeal dysphagia. History of seizures. Hypernatremia, improving -Continue free water flushes for hypernatremia, follow up BMP--results are pending Continue all current care as documented below -Adequate gas exchange - Continue MVS - Lung protective strategies - VAP bundle addressed - SBTs daily as tolerated -Supportive transfusions, to keep HgB >7g/dL - Continue Keppra for seizures with prn ativan IV for breakthrough - Continue Stress ulcer & VTE prophylaxis - Continue bronchodilators with pulmonary hygiene per RT - Continue to wean supplemental oxygen to keep O2 sats 88-90% - Chronic home medications - Replete electrolytes as indicated - Monitor renal indices closely - Avoid nephrotoxic agents, adjust all medications for CrCL - Strict intake and output monitoring - Continue enteral nutrition as tolerated - Continue accuchecks with glycemic control - Target glucose of 140-180 mg/dL - Maintenance of sleep -wake cycle - Mobility as tolerated by hemodynamics - Influenza and pneumonia vaccination per protocol ....discussed with RT/RN Probable trachesotomy placement tomorrow PROGNOSIS: GUARDED -POOR CONDITION: CRITICAL CODE STATUS: FULL CODE The high probability of a clinically significant, sudden or life-threatening deterioration of the [respiratory, neurology, renal] system(s) required my full and direct attention, intervention and personal management. The aggregate critical care time was [31] minutes without overlap. Time includes spent on; [x] Data Review and interpretation [x] Patient assessment and monitoring of vital signs [x] Documentation [x] Medication orders and management Subjective Date of service: 08/24/18 Principal diagnosis: Acute hypoxemic resp failure; S/P cardiac arrest; Seizures; DM II; H/O CVA Interval history: Patient is seen today for: Acute hypoxemic respiratory failure on chronic; Status post cardiac arrest; Seizure disorder with breakthrough seizures; History of diabetes; History of cerebrovascular accident; Oropharyngeal dysphagia; History of seizures. Seen and examined at bedside; 24hour events reviewed; nursing and respiratory care staff consulted; no adverse overnight events reported to me; remains on MVS; AMS is persistent; no emesis or overt aspiration; no fevers or chills reported and no seizure activity, no vomiting, no acute overnight events Vent settings AC-PRVC 12/400/6/24% ABG 7.43/35.5/91/23.4 For possible trachesotomy on tomorrow Objective Vital Signs - 12hr 08/23/18 08/23/18 08/23/18 19:00 19:15 20:00 Temperature 98.2 F Pulse Rate 65 59 L Pulse Rate [ 65 From Monitor] Respiratory 14 12 12 Rate Blood Pressure 145/59 152/65 O2 Sat by Pulse 99 99 100 Oximetry 08/23/18 08/23/18 08/23/18 20:40 21:00 22:00 Temperature Pulse Rate 63 64 62 Pulse Rate [ From Monitor] Respiratory 12 11 L Rate Blood Pressure 167/70 152/65 152/66 O2 Sat by Pulse 100 100 100 Oximetry 08/23/18 08/23/18 08/23/18 23:00 23:32 23:57 Temperature 98.5 F Pulse Rate 62 63 Pulse Rate [ From Monitor] Respiratory 11 L 12 Rate Blood Pressure 144/59 142/58 O2 Sat by Pulse 100 100 Oximetry 08/24/18 08/24/18 08/24/18 00:00 00:25 01:00 Temperature Pulse Rate 64 62 65 Pulse Rate [ 64 From Monitor] Respiratory 12 12 Rate Blood Pressure 147/57 167/67 167/67 O2 Sat by Pulse 100 100 100 Oximetry 08/24/18 04:12 Temperature Pulse Rate 61 Pulse Rate [ From Monitor] Respiratory Rate Blood Pressure 143/62 O2 Sat by Pulse 100 Oximetry Constitutional: no acute distress, other (Elderly looking AAM, normocephalic resting in bed on MVS) Eyes: non-icteric ENT: oropharynx moist, other (ETT 23-24 cm JOVI) Neck: supple, no lymphadenopathy, no JVD, other (no thyromegaly) Effort: normal Ascultation: Bilateral: diminished breath sounds, rhonchi Percussion: Bilateral: not dull Cardiovascular: regular rate and rhythm, other (S1,S2, no murmurs, gallops or rubs) Gastrointestinal: normoactive bowel sounds, soft, non-tender, non-distended Integumentary: normal Extremities: no cyanosis, pulses normal, no ischemia or petechiae, edema (trace ) Neurologic: unable to assess Psychiatric: other (unable to assess) CBC and BMP: 08/24/18 05:50 08/22/18 12:15 ABG, PT/INR, D-dimer: ABG POC ABG pH 7.427 (7.35-7.45) 08/24/18 00:10 POC ABG pCO2 35.5 (35-45) 08/24/18 00:10 POC ABG pO2 91 (80-105) 08/24/18 00:10 POC ABG HCO3 23.4 (22-26 mml/L) 08/24/18 00:10 POC ABG Total CO2 24 (23-27mmol/L) 08/24/18 00:10 POC ABG O2 Sat 97 08/24/18 00:10 PT/INR, D-dimer PT 16.5 Sec. (12.2-14.9) H 08/13/18 00:47 INR 1.25 (0.87-1.13) H 08/13/18 00:47 2742.50 ng/mlDDU (0-234) H 08/13/18 20:07 Abnormal lab findings: Abnormal Labs 08/12/18 08/12/18 08/12/18 21:44 21:44 21:44 WBC 15.5 H RBC 3.12 L Hgb 8.8 L Hct 28.9 L MCHC 31 L RDW 19.5 H [place] % (Auto) [place] # Seg Neutrophils % Lymphocytes % (Manual) 48.0 H Seg Neutrophils # Lymphocytes # (Manual) 7.4 H PT 17.8 H INR 1.37 H APTT D-Dimer Heparin Anti-Xa Level POC ABG pH POC ABG pCO2 POC ABG pO2 Sodium 159 H Potassium Chloride 118.5 H Carbon Dioxide BUN 34 H Creatinine Glucose 161 H POC Glucose Lactic Acid Calcium Magnesium AST Alkaline Phosphatase Total Creatine Kinase CK-MB (CK-2) Troponin T 0.105 H* C-Reactive Protein Total Protein Albumin Cholesterol LDL Cholesterol Direct HDL Cholesterol Urine WBC (Auto) Urine Creatinine Urine Total Protein Crossmatch 08/13/18 08/13/18 08/13/18 00:32 00:47 00:47 WBC RBC Hgb 9.2 L Hct 29.6 L MCHC RDW [place] % (Auto) [place] # Seg Neutrophils % Lymphocytes % (Manual) Seg Neutrophils # Lymphocytes # (Manual) PT 16.5 H INR 1.25 H APTT 37.3 H D-Dimer Heparin Anti-Xa Level POC ABG pH POC ABG pCO2 POC ABG pO2 Sodium Potassium Chloride Carbon Dioxide BUN Creatinine Glucose POC Glucose Lactic Acid Calcium Magnesium AST Alkaline Phosphatase Total Creatine Kinase 211 H CK-MB (CK-2) 7.7 H Troponin T 0.169 H* D C-Reactive Protein Total Protein Albumin Cholesterol 46 L LDL Cholesterol Direct 17 L HDL Cholesterol 6 L Urine WBC (Auto) Urine Creatinine Urine Total Protein Crossmatch 08/13/18 08/13/18 08/13/18 00:50 02:25 05:34 WBC RBC Hgb Hct MCHC RDW [place] % (Auto) [place] # Seg Neutrophils % Lymphocytes % (Manual) Seg Neutrophils # Lymphocytes # (Manual) PT INR APTT D-Dimer Heparin Anti-Xa Level POC ABG pH 7.503 H POC ABG pCO2 POC ABG pO2 253 H Sodium Potassium Chloride Carbon Dioxide BUN Creatinine Glucose POC Glucose Lactic Acid Calcium Magnesium AST Alkaline Phosphatase Total Creatine Kinase 311 H CK-MB (CK-2) 10.4 H Troponin T 0.283 H* D C-Reactive Protein Total Protein Albumin Cholesterol LDL Cholesterol Direct HDL Cholesterol Urine WBC (Auto) > 182.0 H Urine Creatinine Urine Total Protein Crossmatch 08/13/18 08/13/18 08/13/18 06:35 10:10 10:10 WBC RBC Hgb Hct MCHC RDW [place] % (Auto) [place] # Seg Neutrophils % Lymphocytes % (Manual) Seg Neutrophils # Lymphocytes # (Manual) PT INR APTT D-Dimer Heparin Anti-Xa Level POC ABG pH 7.554 H POC ABG pCO2 33.5 L POC ABG pO2 220 H Sodium 158 H Potassium Chloride 117.1 H Carbon Dioxide BUN 53 H Creatinine 2.0 H Glucose 247 H POC Glucose Lactic Acid Calcium 8.2 L Magnesium AST Alkaline Phosphatase Total Creatine Kinase 309 H CK-MB (CK-2) 4.1 H Troponin T 0.470 H* D C-Reactive Protein Total Protein Albumin Cholesterol LDL Cholesterol Direct HDL Cholesterol Urine WBC (Auto) Urine Creatinine Urine Total Protein Crossmatch 08/13/18 08/13/18 08/13/18 12:53 12:53 17:55 WBC RBC Hgb Hct MCHC RDW [place] % (Auto) [place] # Seg Neutrophils % Lymphocytes % (Manual) Seg Neutrophils # Lymphocytes # (Manual) PT INR APTT D-Dimer Heparin Anti-Xa Level POC ABG pH POC ABG pCO2 POC ABG pO2 Sodium Potassium Chloride Carbon Dioxide BUN Creatinine Glucose POC Glucose 308 H Lactic Acid 2.80 H* Calcium Magnesium 2.50 H AST Alkaline Phosphatase Total Creatine Kinase CK-MB (CK-2) Troponin T C-Reactive Protein 16.90 H Total Protein Albumin Cholesterol LDL Cholesterol Direct HDL Cholesterol Urine WBC (Auto) Urine Creatinine Urine Total Protein Crossmatch 08/13/18 08/13/18 08/13/18 20:07 21:16 23:17 WBC RBC Hgb Hct MCHC RDW [place] % (Auto) [place] # Seg Neutrophils % Lymphocytes % (Manual) Seg Neutrophils # Lymphocytes # (Manual) PT INR APTT D-Dimer 2742.50 H Heparin Anti-Xa Level POC ABG pH 7.483 H POC ABG pCO2 30.8 L POC ABG pO2 150 H Sodium Potassium Chloride Carbon Dioxide BUN Creatinine Glucose POC Glucose 245 H Lactic Acid Calcium Magnesium AST Alkaline Phosphatase Total Creatine Kinase CK-MB (CK-2) Troponin T C-Reactive Protein Total Protein Albumin Cholesterol LDL Cholesterol Direct HDL Cholesterol Urine WBC (Auto) Urine Creatinine Urine Total Protein Crossmatch 08/14/18 08/14/18 08/14/18 04:03 04:03 04:56 WBC 18.2 H RBC 2.62 L Hgb 7.3 L Hct 24.5 L MCHC RDW 18.9 H [place] % (Auto) [place] # 1.2 H Seg Neutrophils % 79.4 H Lymphocytes % (Manual) Seg Neutrophils # 14.5 H Lymphocytes # (Manual) PT INR APTT D-Dimer Heparin Anti-Xa Level POC ABG pH POC ABG pCO2 33.5 L POC ABG pO2 153 H Sodium 152 H Potassium 3.4 L Chloride 113.8 H Carbon Dioxide BUN 72 H Creatinine 2.7 H Glucose 239 H POC Glucose Lactic Acid Calcium 7.6 L Magnesium AST 50 H Alkaline Phosphatase 219 H Total Creatine Kinase CK-MB (CK-2) Troponin T 0.409 H* C-Reactive Protein Total Protein 6.2 L Albumin 1.9 L Cholesterol LDL Cholesterol Direct HDL Cholesterol Urine WBC (Auto) Urine Creatinine Urine Total Protein Crossmatch 08/14/18 08/14/18 08/14/18 05:18 13:38 15:35 WBC RBC Hgb Hct MCHC RDW [place] % (Auto) [place] # Seg Neutrophils % Lymphocytes % (Manual) Seg Neutrophils # Lymphocytes # (Manual) PT INR APTT D-Dimer Heparin Anti-Xa Level POC ABG pH POC ABG pCO2 POC ABG pO2 Sodium 150 H Potassium 3.2 L Chloride 114.5 H Carbon Dioxide BUN 69 H Creatinine 2.3 H Glucose 247 H POC Glucose 242 H 296 H Lactic Acid Calcium 7.2 L Magnesium AST Alkaline Phosphatase Total Creatine Kinase CK-MB (CK-2) Troponin T C-Reactive Protein Total Protein Albumin Cholesterol LDL Cholesterol Direct HDL Cholesterol Urine WBC (Auto) Urine Creatinine Urine Total Protein Crossmatch 08/14/18 08/14/18 08/14/18 17:01 17:20 23:47 WBC RBC Hgb Hct MCHC RDW [place] % (Auto) [place] # Seg Neutrophils % Lymphocytes % (Manual) Seg Neutrophils # Lymphocytes # (Manual) PT INR APTT D-Dimer Heparin Anti-Xa Level POC ABG pH POC ABG pCO2 POC ABG pO2 Sodium Potassium Chloride Carbon Dioxide BUN Creatinine Glucose POC Glucose 261 H 280 H Lactic Acid Calcium Magnesium AST Alkaline Phosphatase Total Creatine Kinase CK-MB (CK-2) Troponin T C-Reactive Protein Total Protein Albumin Cholesterol LDL Cholesterol Direct HDL Cholesterol Urine WBC (Auto) Urine Creatinine 60.9 H Urine Total Protein 64 H Crossmatch 08/15/18 08/15/18 08/15/18 04:05 04:05 04:05 WBC RBC Hgb 6.3 L Hct 19.7 L* MCHC RDW [place] % (Auto) [place] # Seg Neutrophils % Lymphocytes % (Manual) Seg Neutrophils # Lymphocytes # (Manual) PT INR APTT D-Dimer Heparin Anti-Xa Level 0.17 L POC ABG pH POC ABG pCO2 POC ABG pO2 Sodium 146 H Potassium 3.0 L Chloride 110.6 H Carbon Dioxide BUN 64 H Creatinine 2.2 H Glucose 231 H POC Glucose Lactic Acid Calcium 7.1 L Magnesium AST Alkaline Phosphatase Total Creatine Kinase CK-MB (CK-2) Troponin T C-Reactive Protein Total Protein Albumin Cholesterol LDL Cholesterol Direct HDL Cholesterol Urine WBC (Auto) Urine Creatinine Urine Total Protein Crossmatch 08/15/18 08/15/18 08/15/18 05:21 05:26 06:35 WBC RBC Hgb Hct MCHC RDW [place] % (Auto) [place] # Seg Neutrophils % Lymphocytes % (Manual) Seg Neutrophils # Lymphocytes # (Manual) PT INR APTT 79.0 H* D-Dimer Heparin Anti-Xa Level POC ABG pH 7.494 H POC ABG pCO2 POC ABG pO2 155 H Sodium Potassium Chloride Carbon Dioxide BUN Creatinine Glucose POC Glucose 271 H Lactic Acid Calcium Magnesium AST Alkaline Phosphatase Total Creatine Kinase CK-MB (CK-2) Troponin T C-Reactive Protein Total Protein Albumin Cholesterol LDL Cholesterol Direct HDL Cholesterol Urine WBC (Auto) Urine Creatinine Urine Total Protein Crossmatch 08/15/18 08/15/18 08/15/18 12:10 15:31 17:27 WBC RBC Hgb Hct MCHC RDW [place] % (Auto) [place] # Seg Neutrophils % Lymphocytes % (Manual) Seg Neutrophils # Lymphocytes # (Manual) PT INR APTT D-Dimer Heparin Anti-Xa Level POC ABG pH POC ABG pCO2 POC ABG pO2 Sodium Potassium Chloride Carbon Dioxide BUN Creatinine Glucose POC Glucose 301 H 287 H Lactic Acid Calcium Magnesium AST Alkaline Phosphatase Total Creatine Kinase CK-MB (CK-2) Troponin T C-Reactive Protein Total Protein Albumin Cholesterol LDL Cholesterol Direct HDL Cholesterol Urine WBC (Auto) Urine Creatinine Urine Total Protein Crossmatch See Detail 08/15/18 08/15/18 08/16/18 21:41 23:45 04:13 WBC RBC Hgb Hct MCHC RDW [place] % (Auto) [place] # Seg Neutrophils % Lymphocytes % (Manual) Seg Neutrophils # Lymphocytes # (Manual) PT INR APTT D-Dimer Heparin Anti-Xa Level 0.19 L POC ABG pH POC ABG pCO2 32.1 L POC ABG pO2 107 H Sodium Potassium Chloride Carbon Dioxide BUN Creatinine Glucose POC Glucose 163 H Lactic Acid Calcium Magnesium AST Alkaline Phosphatase Total Creatine Kinase CK-MB (CK-2) Troponin T C-Reactive Protein Total Protein Albumin Cholesterol LDL Cholesterol Direct HDL Cholesterol Urine WBC (Auto) Urine Creatinine Urine Total Protein Crossmatch 08/16/18 08/16/18 08/16/18 04:50 05:28 11:30 WBC RBC 2.67 L Hgb 8.1 L Hct 23.4 L MCHC 35 H RDW 18.3 H [place] % (Auto) [place] # Seg Neutrophils % Lymphocytes % (Manual) Seg Neutrophils # Lymphocytes # (Manual) PT INR APTT D-Dimer Heparin Anti-Xa Level 0.19 L POC ABG pH POC ABG pCO2 POC ABG pO2 Sodium Potassium Chloride Carbon Dioxide BUN Creatinine Glucose POC Glucose 141 H Lactic Acid Calcium Magnesium AST Alkaline Phosphatase Total Creatine Kinase CK-MB (CK-2) Troponin T C-Reactive Protein Total Protein Albumin Cholesterol LDL Cholesterol Direct HDL Cholesterol Urine WBC (Auto) Urine Creatinine Urine Total Protein Crossmatch 08/16/18 08/16/18 08/16/18 11:30 12:00 12:01 WBC RBC Hgb Hct MCHC RDW [place] % (Auto) [place] # Seg Neutrophils % Lymphocytes % (Manual) Seg Neutrophils # Lymphocytes # (Manual) PT INR APTT D-Dimer Heparin Anti-Xa Level 0.15 L POC ABG pH POC ABG pCO2 POC ABG pO2 Sodium Potassium Chloride 107.8 H Carbon Dioxide 21 L BUN 47 H Creatinine 1.6 H Glucose 221 H POC Glucose 267 H Lactic Acid Calcium 6.9 L Magnesium AST Alkaline Phosphatase Total Creatine Kinase CK-MB (CK-2) Troponin T C-Reactive Protein Total Protein Albumin Cholesterol LDL Cholesterol Direct HDL Cholesterol Urine WBC (Auto) Urine Creatinine Urine Total Protein Crossmatch 08/16/18 08/16/18 08/16/18 17:23 20:01 23:13 WBC RBC Hgb Hct MCHC RDW [place] % (Auto) [place] # Seg Neutrophils % Lymphocytes % (Manual) Seg Neutrophils # Lymphocytes # (Manual) PT INR APTT D-Dimer Heparin Anti-Xa Level 0.26 L POC ABG pH POC ABG pCO2 POC ABG pO2 Sodium Potassium Chloride Carbon Dioxide BUN Creatinine Glucose POC Glucose 245 H 256 H Lactic Acid Calcium Magnesium AST Alkaline Phosphatase Total Creatine Kinase CK-MB (CK-2) Troponin T C-Reactive Protein Total Protein Albumin Cholesterol LDL Cholesterol Direct HDL Cholesterol Urine WBC (Auto) Urine Creatinine Urine Total Protein Crossmatch 08/17/18 08/17/18 08/17/18 04:29 04:55 05:34 WBC RBC Hgb 8.2 L Hct 24.3 L MCHC RDW [place] % (Auto) [place] # Seg Neutrophils % Lymphocytes % (Manual) Seg Neutrophils # Lymphocytes # (Manual) PT INR APTT D-Dimer Heparin Anti-Xa Level POC ABG pH POC ABG pCO2 32.4 L POC ABG pO2 108 H Sodium Potassium Chloride Carbon Dioxide BUN Creatinine Glucose POC Glucose 268 H Lactic Acid Calcium Magnesium AST Alkaline Phosphatase Total Creatine Kinase CK-MB (CK-2) Troponin T C-Reactive Protein Total Protein Albumin Cholesterol LDL Cholesterol Direct HDL Cholesterol Urine WBC (Auto) Urine Creatinine Urine Total Protein Crossmatch 08/17/18 08/17/18 08/17/18 11:54 13:44 17:24 WBC RBC Hgb Hct MCHC RDW [place] % (Auto) [place] # Seg Neutrophils % Lymphocytes % (Manual) Seg Neutrophils # Lymphocytes # (Manual) PT INR APTT D-Dimer Heparin Anti-Xa Level POC ABG pH POC ABG pCO2 32.7 L POC ABG pO2 142 H Sodium Potassium Chloride Carbon Dioxide BUN Creatinine Glucose POC Glucose 295 H 283 H Lactic Acid Calcium Magnesium AST Alkaline Phosphatase Total Creatine Kinase CK-MB (CK-2) Troponin T C-Reactive Protein Total Protein Albumin Cholesterol LDL Cholesterol Direct HDL Cholesterol Urine WBC (Auto) Urine Creatinine Urine Total Protein Crossmatch 08/18/18 08/18/18 08/18/18 00:05 00:59 04:15 WBC RBC Hgb Hct MCHC RDW [place] % (Auto) [place] # Seg Neutrophils % Lymphocytes % (Manual) Seg Neutrophils # Lymphocytes # (Manual) PT INR APTT D-Dimer Heparin Anti-Xa Level POC ABG pH POC ABG pCO2 POC ABG pO2 115 H Sodium Potassium Chloride Carbon Dioxide BUN Creatinine Glucose POC Glucose 247 H 251 H Lactic Acid Calcium Magnesium AST Alkaline Phosphatase Total Creatine Kinase CK-MB (CK-2) Troponin T C-Reactive Protein Total Protein Albumin Cholesterol LDL Cholesterol Direct HDL Cholesterol Urine WBC (Auto) Urine Creatinine Urine Total Protein Crossmatch 08/18/18 08/18/18 08/18/18 05:02 12:20 17:51 WBC RBC Hgb Hct MCHC RDW [place] % (Auto) [place] # Seg Neutrophils % Lymphocytes % (Manual) Seg Neutrophils # Lymphocytes # (Manual) PT INR APTT D-Dimer Heparin Anti-Xa Level POC ABG pH POC ABG pCO2 POC ABG pO2 Sodium Potassium Chloride Carbon Dioxide BUN Creatinine Glucose POC Glucose 282 H 209 H 261 H Lactic Acid Calcium Magnesium AST Alkaline Phosphatase Total Creatine Kinase CK-MB (CK-2) Troponin T C-Reactive Protein Total Protein Albumin Cholesterol LDL Cholesterol Direct HDL Cholesterol Urine WBC (Auto) Urine Creatinine Urine Total Protein Crossmatch 08/18/18 08/19/18 08/19/18 23:30 04:54 05:16 WBC RBC 2.62 L Hgb 7.5 L Hct 23.1 L MCHC RDW 18.1 H [place] % (Auto) [place] # Seg Neutrophils % Lymphocytes % (Manual) Seg Neutrophils # Lymphocytes # (Manual) PT INR APTT D-Dimer Heparin Anti-Xa Level POC ABG pH POC ABG pCO2 POC ABG pO2 58 L Sodium Potassium Chloride Carbon Dioxide BUN Creatinine Glucose POC Glucose 231 H Lactic Acid Calcium Magnesium AST Alkaline Phosphatase Total Creatine Kinase CK-MB (CK-2) Troponin T C-Reactive Protein Total Protein Albumin Cholesterol LDL Cholesterol Direct HDL Cholesterol Urine WBC (Auto) Urine Creatinine Urine Total Protein Crossmatch 08/19/18 08/19/18 08/19/18 05:16 05:40 11:56 WBC RBC Hgb Hct MCHC RDW [place] % (Auto) [place] # Seg Neutrophils % Lymphocytes % (Manual) Seg Neutrophils # Lymphocytes # (Manual) PT INR APTT D-Dimer Heparin Anti-Xa Level POC ABG pH POC ABG pCO2 POC ABG pO2 Sodium 152 H D Potassium Chloride 118.7 H Carbon Dioxide BUN 38 H Creatinine Glucose 220 H POC Glucose 227 H 213 H Lactic Acid Calcium 8.1 L D Magnesium AST Alkaline Phosphatase Total Creatine Kinase CK-MB (CK-2) Troponin T C-Reactive Protein Total Protein Albumin Cholesterol LDL Cholesterol Direct HDL Cholesterol Urine WBC (Auto) Urine Creatinine Urine Total Protein Crossmatch 08/19/18 08/19/18 08/20/18 18:37 23:32 04:38 WBC RBC Hgb Hct MCHC RDW [place] % (Auto) [place] # Seg Neutrophils % Lymphocytes % (Manual) Seg Neutrophils # Lymphocytes # (Manual) PT INR APTT D-Dimer Heparin Anti-Xa Level POC ABG pH POC ABG pCO2 POC ABG pO2 140 H Sodium Potassium Chloride Carbon Dioxide BUN Creatinine Glucose POC Glucose 227 H 245 H Lactic Acid Calcium Magnesium AST Alkaline Phosphatase Total Creatine Kinase CK-MB (CK-2) Troponin T C-Reactive Protein Total Protein Albumin Cholesterol LDL Cholesterol Direct HDL Cholesterol Urine WBC (Auto) Urine Creatinine Urine Total Protein Crossmatch 08/20/18 08/20/18 08/20/18 05:31 05:37 05:37 WBC RBC 2.60 L Hgb 7.5 L Hct 22.9 L MCHC RDW 18.4 H [place] % (Auto) [place] # Seg Neutrophils % Lymphocytes % (Manual) Seg Neutrophils # Lymphocytes # (Manual) PT INR APTT D-Dimer Heparin Anti-Xa Level POC ABG pH POC ABG pCO2 POC ABG pO2 Sodium 150 H Potassium Chloride 115.6 H Carbon Dioxide BUN 38 H Creatinine Glucose 276 H POC Glucose 266 H Lactic Acid Calcium 7.9 L Magnesium AST Alkaline Phosphatase Total Creatine Kinase CK-MB (CK-2) Troponin T C-Reactive Protein Total Protein Albumin Cholesterol LDL Cholesterol Direct HDL Cholesterol Urine WBC (Auto) Urine Creatinine Urine Total Protein Crossmatch 08/20/18 08/20/18 08/20/18 14:01 18:20 23:11 WBC RBC Hgb Hct MCHC RDW [place] % (Auto) [place] # Seg Neutrophils % Lymphocytes % (Manual) Seg Neutrophils # Lymphocytes # (Manual) PT INR APTT D-Dimer Heparin Anti-Xa Level POC ABG pH POC ABG pCO2 POC ABG pO2 Sodium Potassium Chloride Carbon Dioxide BUN Creatinine Glucose POC Glucose 305 H 271 H 218 H Lactic Acid Calcium Magnesium AST Alkaline Phosphatase Total Creatine Kinase CK-MB (CK-2) Troponin T C-Reactive Protein Total Protein Albumin Cholesterol LDL Cholesterol Direct HDL Cholesterol Urine WBC (Auto) Urine Creatinine Urine Total Protein Crossmatch 08/21/18 08/21/18 08/21/18 04:41 04:41 06:20 WBC RBC 2.65 L Hgb 7.6 L Hct 23.3 L MCHC RDW 19.1 H [place] % (Auto) [place] # Seg Neutrophils % Lymphocytes % (Manual) Seg Neutrophils # Lymphocytes # (Manual) PT INR APTT D-Dimer Heparin Anti-Xa Level POC ABG pH POC ABG pCO2 POC ABG pO2 Sodium 150 H Potassium Chloride 117.8 H Carbon Dioxide BUN 37 H Creatinine Glucose 233 H POC Glucose 262 H Lactic Acid Calcium 7.9 L Magnesium AST Alkaline Phosphatase Total Creatine Kinase CK-MB (CK-2) Troponin T C-Reactive Protein Total Protein Albumin Cholesterol LDL Cholesterol Direct HDL Cholesterol Urine WBC (Auto) Urine Creatinine Urine Total Protein Crossmatch 08/21/18 08/21/18 08/21/18 10:18 12:04 12:36 WBC RBC Hgb Hct MCHC RDW [place] % (Auto) [place] # Seg Neutrophils % Lymphocytes % (Manual) Seg Neutrophils # Lymphocytes # (Manual) PT INR APTT D-Dimer Heparin Anti-Xa Level POC ABG pH POC ABG pCO2 POC ABG pO2 Sodium Potassium Chloride Carbon Dioxide BUN Creatinine Glucose POC Glucose 256 H 245 H 255 H Lactic Acid Calcium Magnesium AST Alkaline Phosphatase Total Creatine Kinase CK-MB (CK-2) Troponin T C-Reactive Protein Total Protein Albumin Cholesterol LDL Cholesterol Direct HDL Cholesterol Urine WBC (Auto) Urine Creatinine Urine Total Protein Crossmatch 08/21/18 08/21/18 08/22/18 17:36 23:29 05:01 WBC RBC Hgb Hct MCHC RDW [place] % (Auto) [place] # Seg Neutrophils % Lymphocytes % (Manual) Seg Neutrophils # Lymphocytes # (Manual) PT INR APTT D-Dimer Heparin Anti-Xa Level POC ABG pH 7.466 H POC ABG pCO2 33.8 L POC ABG pO2 111 H Sodium Potassium Chloride Carbon Dioxide BUN Creatinine Glucose POC Glucose 263 H 268 H Lactic Acid Calcium Magnesium AST Alkaline Phosphatase Total Creatine Kinase CK-MB (CK-2) Troponin T C-Reactive Protein Total Protein Albumin Cholesterol LDL Cholesterol Direct HDL Cholesterol Urine WBC (Auto) Urine Creatinine Urine Total Protein Crossmatch 08/22/18 08/22/18 08/22/18 05:05 12:05 12:15 WBC RBC Hgb Hct MCHC RDW [place] % (Auto) [place] # Seg Neutrophils % Lymphocytes % (Manual) Seg Neutrophils # Lymphocytes # (Manual) PT INR APTT D-Dimer Heparin Anti-Xa Level POC ABG pH POC ABG pCO2 POC ABG pO2 Sodium 147 H Potassium Chloride 113.2 H Carbon Dioxide BUN 36 H Creatinine Glucose 249 H POC Glucose 256 H 228 H Lactic Acid Calcium 8.2 L Magnesium AST Alkaline Phosphatase Total Creatine Kinase CK-MB (CK-2) Troponin T C-Reactive Protein Total Protein Albumin Cholesterol LDL Cholesterol Direct HDL Cholesterol Urine WBC (Auto) Urine Creatinine Urine Total Protein Crossmatch 08/22/18 08/23/18 08/23/18 17:30 00:03 05:05 WBC RBC Hgb Hct MCHC RDW [place] % (Auto) [place] # Seg Neutrophils % Lymphocytes % (Manual) Seg Neutrophils # Lymphocytes # (Manual) PT INR APTT D-Dimer Heparin Anti-Xa Level POC ABG pH POC ABG pCO2 POC ABG pO2 Sodium Potassium Chloride Carbon Dioxide BUN Creatinine Glucose POC Glucose 291 H 259 H 247 H Lactic Acid Calcium Magnesium AST Alkaline Phosphatase Total Creatine Kinase CK-MB (CK-2) Troponin T C-Reactive Protein Total Protein Albumin Cholesterol LDL Cholesterol Direct HDL Cholesterol Urine WBC (Auto) Urine Creatinine Urine Total Protein Crossmatch 08/23/18 08/23/18 08/23/18 05:14 12:29 17:21 WBC RBC Hgb Hct MCHC RDW [place] % (Auto) [place] # Seg Neutrophils % Lymphocytes % (Manual) Seg Neutrophils # Lymphocytes # (Manual) PT INR APTT D-Dimer Heparin Anti-Xa Level POC ABG pH POC ABG pCO2 POC ABG pO2 Sodium Potassium Chloride Carbon Dioxide BUN Creatinine Glucose POC Glucose 208 H 138 H 175 H Lactic Acid Calcium Magnesium AST Alkaline Phosphatase Total Creatine Kinase CK-MB (CK-2) Troponin T C-Reactive Protein Total Protein Albumin Cholesterol LDL Cholesterol Direct HDL Cholesterol Urine WBC (Auto) Urine Creatinine Urine Total Protein Crossmatch 08/23/18 08/24/18 08/24/18 23:36 01:00 05:50 WBC RBC 2.92 L 2.90 L Hgb 8.3 L 8.2 L Hct 25.4 L 25.2 L MCHC RDW 18.9 H 18.6 H Ashe % (Auto) 9.2 H Ashe # Seg Neutrophils % Lymphocytes % (Manual) Seg Neutrophils # Lymphocytes # (Manual) PT INR APTT D-Dimer Heparin Anti-Xa Level POC ABG pH POC ABG pCO2 POC ABG pO2 Sodium Potassium Chloride Carbon Dioxide BUN Creatinine Glucose POC Glucose 163 H Lactic Acid Calcium Magnesium AST Alkaline Phosphatase Total Creatine Kinase CK-MB (CK-2) Troponin T C-Reactive Protein Total Protein Albumin Cholesterol LDL Cholesterol Direct HDL Cholesterol Urine WBC (Auto) Urine Creatinine Urine Total Protein Crossmatch Chest x-ray: image reviewed (ETT and PICC line in position, Lung parenchyma clear of infiltrates) Allied health notes reviewed: nursing
[2018-08-24 06:40] LABS: BUN/Creatinine Ratio 41; Blood Urea Nitrogen 33 mg/dL (9-20); Calcium 8.3 mg/dL (8.4-10.2); Hemolysis Index 1
[2018-08-24] MEDS: HumaLOG SUB-Q SCH ×3 (07:02→18:37)
[2018-08-24] MEDS: PEPCID PO SCH ×2 (10:50→21:31)
[2018-08-24] MEDS: KEPPRA PO SCH ×2 (10:50→21:31)
[2018-08-24] MEDS: ASPIRIN PO SCH (10:50)
[2018-08-24] MEDS: LANTUS SUB-Q SCH (10:51)
[2018-08-24] MEDS: SODIUM CHLORIDE FLUSH SYRINGE 10 ML IV SCH ×2 (10:51→21:32)
[2018-08-24] MEDS ORDERED: LANTUS SUB-Q ONE (10:59)
[2018-08-24] MEDS ORDERED: LANTUS SUB-Q SCH (11:00)
--- NOTE | 2018-08-24 11:03 | Progress Note ---
Assessment and Plan Assessment and plan: Patient is a 77 yo man from [facility] with a history of respiratory failure, CVA with tracheostomy and Gtube who presented to [facility] ED following cardiac arrest after being found unresponsive at the shelter. Time down is unknown per records. The patient is on the vent and unresponsive, all history is obtained from the chart. Patient had multiple episodes of arrest/pulselessness. He has been on the vent since then without any improvement. Per ER notes the patient was bagged via tracheostomy which continued to have low tidal volumes and so the patient with orally intubated after which tidal volumes improved. I spoke with and daughter, Felicita and they believe that he aspirated with a mucus plug that caused the cardiopulmonary arrest not NSTEMI.. Initially, he went to [facility] may 05 to june 05, he had fluid on brain and multiple strokes per family and they drained the fluid off the brain. The trach was placed at [facility] and patient went to [facility], x 7 weeks (trach was changed where capped was placed), he was doing well, talking and sitting up. Then he went to [facility], August 03 and his oral care was horrible. The trach care was horrible and not enough suctioning done. Mouth with copious amount of crud. Then on August 12, Friday, he had voice changing and mucus plugging. Followed by respiratory arrest. The SC brain flow scan showed reduced blood flow. Cardiopulmonary arrest x 3: Most likely related to mucus plugging >NSTEMI, leading to severe irreversible brain damage: supportive care, CCM following. Acute on chronic respiratory failure on mechanical ventilation >96 hours: Trach has been removed when patient was orally intubated, continue ventilator management per pulmonology Right pneumothorax, appears to be resolved: Status post chest tube, mgt per pulmonology Anoxic brain injury and status epilepticus poa: Patient was noted to be having seizures, he received Ativan and Keppra, neurology consult appreciated, poor prognosis, poor likelihood of recovery, Hypernatremia/free water deficits, Continue free water via G-tube, sp hypotonic IV solution, monitor bmp closely Acute kidney injury likely due to ATN, poa: Nephrology following, continue IV fluid, avoid renal toxic agents NSTEMI: treated with IV heparin, asa, statin, no bblocker due to bradycardia, hypotension, Cardiology is following Severe malnutrition: Dietitian consult, continue tube feedings UTI/sepsis: Continue antibiotics, follow-up urine cultures-->no growth x 48 hours Type 2 dm with persistent hyperglycemia: cont insulins and adjust according, on tube feedings Anemia: sp transfusion Urinary retention: continue douglass, condom cath DVT prophylaxis; patient is fully anticoagulated on heparin drip Next step is replace Trach and d/c back to facility, d/w Dr. Marvin, trach is scheduled for 08/25/18 at 2pm, Friday is a holiday increased free water flushes, recheck bmp am increased lantus to 44 units qam Disposition: continue inpatient care, replace Trach tomorrow than back to SNF on ce ventilator is weaned off or LTACH History Interval history: Patient was seen and examined. Follow-up on current diagnosis of respiratory failure. No overnight events reported to me. Patient intubated, not sedated. Imaging, nursing note, chart, labs and old chart reviewed. Hospitalist Physical - Physical exam Narrative exam: Gen: ill appearing, intubated not sedated, comatose HEENT: NCAT, pupil pinpoint and nonreactive Neck: supple, no adenopathy, no thyromegaly, no JVD CVS/Heart: Regular, normal S1S2, pulses present bilaterally Chest/Lungs: diminished bs bilateral, Symmetrical chest expansion, good air entry bilaterally GI/Abdomen: soft, PEG in place, +bowel sounds, Extermity/Skin: no obvious rash MSK: unresponsive Neuro: unresponsive Psych: unresponsive - Constitutional Vitals: Temp Pulse Resp BP Pulse Ox 97.9 F 60 12 152/61 100 08/24/18 08:00 08/24/18 09:00 08/24/18 09:00 08/24/18 09:00 08/24/18 09:00 General appearance: Present: other (twitching, nonresponsive, intubated) Results - Labs CBC & Chem 7: 08/24/18 05:50 08/24/18 05:50 Labs: Laboratory Last Values WBC 7.5 K/mm3 (4.5-11.0) 08/24/18 05:50 RBC 2.90 M/mm3 (3.65-5.03) L 08/24/18 05:50 Hgb 8.2 gm/dl (11.8-15.2) L 08/24/18 05:50 Hct 25.2 % (35.5-45.6) L 08/24/18 05:50 MCV 87 fl (84-94) 08/24/18 05:50 MCH 28 pg (28-32) 08/24/18 05:50 MCHC 33 % (32-34) 08/24/18 05:50 RDW 18.6 % (13.2-15.2) H 08/24/18 05:50 Plt Count 317 K/mm3 (140-440) 08/24/18 05:50 Lymph % (Auto) 17.1 % (13.4-35.0) 08/24/18 01:00 Lamb % (Auto) 9.2 % (0.0-7.3) H 08/24/18 01:00 Eos % (Auto) 2.6 % (0.0-4.3) 08/24/18 01:00 Baso % (Auto) 1.3 % (0.0-1.8) 08/24/18 01:00 Lymph # 1.4 K/mm3 (1.2-5.4) 08/24/18 01:00 Lamb # 0.7 K/mm3 (0.0-0.8) 08/24/18 01:00 Eos # 0.2 K/mm3 (0.0-0.4) 08/24/18 01:00 Baso # 0.1 K/mm3 (0.0-0.1) 08/24/18 01:00 Add Manual Diff Complete 08/12/18 21:44 Total Counted 100 08/12/18 21:44 Seg Neutrophils % 69.8 % (40.0-70.0) 08/24/18 01:00 Seg Neuts % (Manual) 44.0 % (40.0-70.0) 08/12/18 21:44 0 % 08/12/18 21:44 48.0 % (13.4-35.0) H 08/12/18 21:44 Reactive Lymphs % (Man) 0 % 08/12/18 21:44 2.0 % (0.0-7.3) 08/12/18 21:44 1.0 % (0.0-4.3) 08/12/18 21: 0 % (0.0-1.8) 08/12/18 21:44 1.0 % 08/12/18 21:44 4.0 % 08/12/18 21:44 0 % 08/12/18 21:44 0 % 08/12/18 21: Nucleated RBC % Not Reportable 08/12/18 21:44 Seg Neutrophils # 5.6 K/mm3 (1.8-7.7) 08/24/18 01:00 Seg Neutrophils # Man 6.8 K/mm3 (1.8-7.7) 08/12/18 21:44 Band Neutrophils # 0.0 K/mm3 08/12/18 21:44 7.4 K/mm3 (1.2-5.4) H 08/12/18 21:44 Abs React Lymphs (Man) 0.0 K/mm3 08/12/18 21:44 0.3 K/mm3 (0.0-0.8) 08/12/18 21:44 0.2 K/mm3 (0.0-0.4) 08/12/18 21:44 0.0 K/mm3 (0.0-0.1) 08/12/18 21:44 0.2 K/mm3 08/12/18 21:44 0.6 K/mm3 08/12/18 21:44 0.0 K/mm3 08/12/18 21:44 Blast Cells # 0.0 K/mm3 08/12/18 21:44 WBC Morphology Not Reportable 08/12/18 21:44 Hypersegmented Neuts Not Reportable 08/12/18 21:44 Hyposegmented Neuts Not Reportable 08/12/18 21:44 Hypogranular Neuts Not Reportable 08/12/18 21:44 Not Reportable 08/12/18 21:44 Not Reportable 08/12/18 21:44 Not Reportable 08/12/18 21:44 Not Reportable 08/12/18 21:44 Not Reportable 08/12/18 21:44 Not Reportable 08/12/18 21:44 Consistent w auto 08/12/18 21:44 Not Reportable 08/12/18 21:44 Plt Clumps, EDTA Not Reportable 08/12/18 21:44 Not Reportable 08/12/18 21:44 Not Reportable 08/12/18 21:44 Not Reportable 08/12/18 21:44 Plt Morphology Comment Not Reportable 08/12/18 21:44 RBC Morphology Not Reportable 08/12/18 21:44 Dimorphic RBCs Not Reportable 08/12/18 21:44 Not Reportable 08/12/18 21:44 Not Reportable 08/12/18 21:44 Not Reportable 08/12/18 21:44 Few 08/12/18 21:44 Not Reportable 08/12/18 21:44 Not Reportable 08/12/18 21:44 Not Reportable 08/12/18 21:44 Not Reportable 08/12/18 21:44 Not Reportable 08/12/18 21:44 Not Reportable 08/12/18 21:44 Not Reportable 08/12/18 21:44 Few 08/12/18 21:44 Not Reportable 08/12/18 21:44 Not Reportable 08/12/18 21:44 Not Reportable 08/12/18 21:44 Not Reportable 08/12/18 21:44 Not Reportable 08/12/18 21:44 Not Reportable 08/12/18 21:44 Few 08/12/18 21:44 Acanthocytes (Spur) Not Reportable 08/12/18 21:44 Rouleaux Not Reportable 08/12/18 21:44 Not Reportable 08/12/18 21:44 Not Reportable 08/12/18 21:44 Not Reportable 08/12/18 21:44 Not Reportable 08/12/18 21:44 Hem Pathologist Commnt No 08/12/18 21:44 PT 16.5 Sec. (12.2-14.9) H 08/13/18 00:47 INR 1.25 (0.87-1.13) H 08/13/18 00:47 APTT 79.0 Sec. (24.2-36.6) H* 08/15/18 06:35 2742.50 ng/mlDDU (0-234) H 08/13/18 20:07 Heparin Anti-Xa Level 0.26 U.I./ml (0.3-0.7) L 08/16/18 20:01 POC ABG pH 7.427 (7.35-7.45) 08/24/18 00:10 POC ABG pCO2 35.5 (35-45) 08/24/18 00:10 POC ABG pO2 91 (80-105) 08/24/18 00:10 POC ABG HCO3 23.4 (22-26 mml/L) 08/24/18 00:10 POC ABG Total CO2 24 (23-27mmol/L) 08/24/18 00:10 POC ABG O2 Sat 97 08/24/18 00:10 POC ABG Base Excess -1 ((-2) - (+3)mmol/L) 08/24/18 00:10 24 % 08/24/18 00:10 Sodium 147 mmol/L (137-145) H 08/24/18 05:50 Potassium 3.7 mmol/L (3.6-5.0) 08/24/18 05:50 Chloride 113.6 mmol/L (98-107) H 08/24/18 05:50 Carbon Dioxide 25 mmol/L (22-30) 08/24/18 05:50 12 mmol/L 08/24/18 05:50 BUN 33 mg/dL (9-20) H 08/24/18 05:50 0.8 mg/dL (0.8-1.5) 08/24/18 05:50 Estimated GFR > 60 ml/min 08/24/18 05:50 41 % 08/24/18 05:50 Glucose 210 mg/dL (75-100) H 08/24/18 05:50 POC Glucose 163 (70-105) H 08/23/18 23:36 Lactic Acid 2.80 mmol/L (0.7-2.0) H* 08/13/18 12:53 Calcium 8.3 mg/dL (8.4-10.2) L 08/24/18 05:50 Phosphorus 3.90 mg/dL (2.5-4.5) 08/15/18 04:05 Magnesium 2.20 mg/dL (1.7-2.3) 08/15/18 04:05 0.30 mg/dL (0.1-1.2) 08/14/18 04:03 AST 50 units/L (5-40) H 08/14/18 04:03 ALT 55 units/L (7-56) 08/14/18 04:03 219 units/L (35-129) H 08/14/18 04:03 309 units/L (55-170) H 08/13/18 10:10 CK-MB (CK-2) 4.1 ng/mL (0.0-4.0) H 08/13/18 10:10 CK-MB (CK-2) Rel Index 1.3 (0-4) 08/13/18 10:10 0.409 ng/mL (0.00-0.029) H* 08/14/18 04:03 16.90 mg/dL (0.00-1.30) H 08/13/18 12:53 6.2 g/dL (6.3-8.2) L 08/14/18 04:03 1.9 g/dL (3.9-5) L 08/14/18 04:03 0.4 % 08/14/18 04:03 Triglycerides 62 mg/dL (2-149) 08/13/18 00:32 Cholesterol 46 mg/dL (50-199) L 08/13/18 00:32 17 mg/dL (50-130) L 08/13/18 00:32 6 mg/dL (40-59) L 08/13/18 00:32 7.66 % 08/13/18 00:32 Yellow (Yellow) 08/13/18 00:50 Cloudy (Clear) 08/13/18 00:50 7.0 (5.0-7.0) 08/13/18 00:50 Ur Specific [place] 1.025 (1.003-1.030) 08/13/18 00:50 100 mg/dl mg/dL (Negative) 08/13/18 00:50 50 mg/dL (Negative) 08/13/18 00:50 Tr mg/dL (Negative) 08/13/18 00:50 Mod (Negative) 08/13/18 00:50 Neg (Negative) 08/13/18 00:50 Neg (Negative) 08/13/18 00:50 < 2.0 mg/dL (<2.0) 08/13/18 00:50 Ur Leukocyte Esterase Mod (Negative) 08/13/18 00:50 > 182.0 /HPF (0.0-6.0) H 08/13/18 00:50 > 182.0 /HPF (0.0-6.0) 08/13/18 00:50 2+ /HPF (Negative) 08/13/18 00:50 3+ /HPF 08/13/18 00:50 None seen (None Seen) 08/14/18 17:20 60.9 mg/dL (0.1-20.0) H 08/14/18 17:20 32 mmol/L 08/14/18 17:20 64 mg/dL (5-11.8) H 08/14/18 17:20 Presumptive negative 08/12/18 21:30 Presumptive negative 08/12/18 21:30 Ur Barbiturates Screen Presumptive negative 08/12/18 21:30 Ur Phencyclidine Scrn Presumptive negative 08/12/18 21:30 Ur Amphetamines Screen Presumptive negative 08/12/18 21:30 U Benzodiazepines Scrn Presumptive negative 08/12/18 21:30 Presumptive negative 08/12/18 21:30 U Marijuana (THC) Screen Presumptive negative 08/12/18 21:30 Disclamer 08/12/18 21:30 Blood Type O POSITIVE 08/15/18 15:31 Antibody Screen Negative 08/15/18 15:31 Crossmatch See Detail 08/15/18 15:31 Active Medications - Current Medications Current Medications: Generic Name Dose Route Start Last Admin Trade Name Freq PRN Reason Stop Dose Admin Acetaminophen 650 mg 08/13/18 11:40 08/13/18 16:09 Tylenol PO 650 mg Q6H PRN Administration Fever >101 Lipase/Protease/Amylase 1 each 08/13/18 15:55 Pancreaze 10,500 Unit FEEDTUBE PRN PRN For Clogged Feeding Tube Aspirin 325 mg 08/17/18 10:00 08/24/18 10:50 Aspirin PO 325 mg QDAY LENCHO Administration Atorvastatin Calcium 40 mg 08/14/18 22:00 08/23/18 23:34 Lipitor PO 40 mg QHS LENCHO Administration Dextrose 50 ml 08/13/18 01:34 D50w (25gm) Syringe IV PRN PRN Hypoglycemia Enoxaparin Sodium 40 mg 08/17/18 22:00 08/23/18 23:34 Lovenox SUB-Q 40 mg QDAY@2200 LENCHO Administration Famotidine 20 mg 08/19/18 10:00 08/24/18 10:50 Pepcid PO 20 mg BID [facility] Administration Hydrophilic Ointment 1 applic 08/13/18 12:21 Vaseline Lip Therapy TP Q2HR PRN Dry Lips Fentanyl Citrate 2,000 mcg in 100 mls @ 3.629 mls/hr 08/14/18 13:00 Fentanyl Drip Premix IV TITR LENCHO Protocol 1 MCG/KG/HR Insulin Glargine 44 units 08/24/18 11:00 Lantus SUB-Q QAMDIAB [facility] Insulin Human Lispro 0 unit 08/13/18 06:00 08/24/18 07:02 Humalog SUB-Q 3 unit Q6HR [facility] Administration Protocol Levetiracetam 1,000 mg 08/13/18 15:00 08/24/18 10:50 Keppra PO 1,000 mg BID [facility] Administration Multi-Ingred Cream/Lotion/Oil/Oint 1 applic 08/13/18 12:21 08/17/18 00:41 Artificial Tears Ophth Oint OU 1 applic Q4HR PRN Administration Dry Eye(s) Ondansetron HCl 4 mg 08/13/18 01:34 Zofran IV Q8H PRN Nausea And Vomiting Simple Syrup 15 ml 08/13/18 15:55 Simple Syrup FEEDTUBE PRN PRN Hypoglycemia Simple Syrup 30 ml 08/13/18 15:55 Simple Syrup FEEDTUBE PRN PRN Hypoglycemia Sodium Bicarbonate 325 mg 08/13/18 15:55 Sodium Bicarbonate FEEDTUBE PRN PRN For Clogged Feeding Tube Sodium Chloride 10 ml 08/13/18 10:00 08/24/18 10:51 Sodium Chloride Flush Syringe 10 Ml IV 10 ml BID LENCHO Administration Sodium Chloride 10 ml 08/13/18 01:34 Sodium Chloride Flush Syringe 10 Ml IV PRN PRN LINE FLUSH Nutrition/Malnutrition Assess - Dietary Evaluation Nutrition/Malnutrition Findings: Nutrition Notes Start: 08/13/18 15:41 Freq: Status: Active Protocol: Document 08/22/18 09:44 LP (Rec: 08/22/18 09:45 LP [id number]) Nutrition Intervention Add Supplement/Snack (indicate name/kcal Magen BID /protein ) Provides kCal: 190 Provides Protein (gm) 5
--- NOTE | 2018-08-24 13:18 | Progress Note ---
Assessment and Plan - Patient Problems (1) MAYLIN (acute kidney injury) Current Visit: Yes Status: Acute Plan to address problem: Acute kidney injury prerenal azotemia versus acute tubular necrosis. Kidney function improved. Continue volume repletion Follow-up electrolytes and renal function (2) Hypernatremia Current Visit: Yes Status: Acute Plan to address problem: Sodium is unchanged. Increase free water replacement. Follow-up sodium (3) Type 2 diabetes mellitus without complications Current Visit: Yes Status: Acute Plan to address problem: Blood sugar management by primary attending. (4) Essential (primary) hypertension Current Visit: Yes Status: Acute Plan to address problem: Blood pressure was low on presentation but has improved. Follow-up blood pressure Subjective Date of service: 08/24/18 Principal diagnosis: Acute hypoxemic resp failure; S/P cardiac arrest; Seizures; DM II; H/O CVA Interval history: Patient seen lying in bed in intensive care unit. Intubated on the ventilator. Unresponsive Objective - Exam Narrative Exam: Frail elderly -[place] male lying in bed intubated on ventilator HEENT: NCAT, pink oral mucous membrane Neck: Supple, no venous distention CVS: S1S2 RRR with no murmur, rub or gallop Chest: Low pitched rhonchi with diminished breath sounds Abdomen: Protuberant, soft, nontender, no organomegaly, bowel sounds are present Extremities: 2+ edema, muscle wasting Skin warm and dry Genitourinary deferred Neuro: Unresponsive - Vital Signs Vital signs: Vital Signs - 12hr 08/24/18 08/24/18 08/24/18 02:00 03:00 04:00 Temperature Pulse Rate 61 63 61 Pulse Rate [ 61 From Monitor] Respiratory 13 13 12 Rate Blood Pressure 142/61 154/65 143/62 O2 Sat by Pulse 100 100 100 Oximetry 08/24/18 08/24/18 08/24/18 04:12 05:00 06:00 Temperature Pulse Rate 61 60 61 Pulse Rate [ From Monitor] Respiratory 11 L 11 L Rate Blood Pressure 143/62 143/62 148/62 O2 Sat by Pulse 100 100 100 Oximetry 08/24/18 08/24/18 08/24/18 07:00 08:00 09:00 Temperature 97.9 F Pulse Rate 64 62 60 Pulse Rate [ 60 From Monitor] Respiratory 11 L 12 12 Rate Blood Pressure 155/62 158/66 152/61 O2 Sat by Pulse 100 100 100 Oximetry 08/24/18 08/24/18 08/24/18 10:00 11:00 12:00 Temperature 98.3 F Pulse Rate 59 L 59 L 57 L Pulse Rate [ 59 L From Monitor] Respiratory 12 11 L 12 Rate Blood Pressure 159/63 149/60 153/67 O2 Sat by Pulse 100 100 100 Oximetry 08/24/18 12:01 Temperature Pulse Rate 59 L Pulse Rate [ From Monitor] Respiratory 14 Rate Blood Pressure 153/67 O2 Sat by Pulse 100 Oximetry - Lab 08/24/18 05:50 08/24/18 05:50 Most recent lab results Calcium 8.3 mg/dL (8.4-10.2) L 08/24/18 05:50 Phosphorus 3.90 mg/dL (2.5-4.5) 08/15/18 04:05 Magnesium 2.20 mg/dL (1.7-2.3) 08/15/18 04:05 60.9 mg/dL (0.1-20.0) H 08/14/18 17:20 32 mmol/L 08/14/18 17:20 64 mg/dL (5-11.8) H 08/14/18 17:20 Medications & Allergies - Medications Allergies/Adverse Reactions: Allergies No Known Allergies Allergy (Verified 08/12/18 21:47) Home Medications: Home Medications Medication Instructions Recorded Confirmed Last Taken Type Acetaminophen TAB 2 1000units FEEDTUBE Q6HR PRN 08/18/18 08/18/18 Unknown History Amantadine [Symmetrel] 100 mg FEEDTUBE DAILY 08/18/18 08/18/18 08/13/18 History Amlodipine Besylate [Norvasc] 5 mg FEEDTUBE DAILY 08/18/18 08/18/18 08/13/18 History Ascorbic Acid [Vitamin C Oral Liq] 500 mg FEEDTUBE QDAY 08/18/18 08/18/18 08/13/18 History Ascorbic Acid [Vitamin C with Fiordaliza 1 tab FEEDTUBE DAILY 08/18/18 08/18/18 Unknown History Hips] Aspirin BABY CHEW TAB 1 tab FEEDTUBE DAILY 08/18/18 08/18/18 Unknown History Aspirin BABY CHEW TAB 81 mg FEEDTUBE DAILY 08/18/18 08/18/18 08/13/18 History Atorvastatin Calcium [Lipitor] 40 mg FEEDTUBE DAILY 08/18/18 08/18/18 08/13/18 History Benazepril HCl 10 mg FEEDTUBE DAILY 08/18/18 08/18/18 08/13/18 History Bisacodyl [Dulcolax suppos] 10 mg NE QDAY PRN 08/18/18 08/18/18 Unknown History Docusate Sodium [Colace ORAL LIQ] 100 mg FEEDTUBE QDAY PRN 08/18/18 08/18/18 Unknown History Ferrous Sulfate [Ferrous Sulfate 7.5 ml FEEDTUBE DAILY 08/18/18 08/18/18 08/13/18 History 220 MG/5 ML] Glycopyrrolate [Robinul] 2 mg FEEDTUBE Q8H 08/18/18 08/18/18 08/13/18 History Heparin Sod,Porcine/0.9 % NaCl 5,000 units SUB-Q Q8H 08/18/18 08/18/18 Unknown History [Heparin 5,000 Unit/5 ml-Ns] Insulin Glargine,Hum.rec.anlog 40 unit SQ HS 08/18/18 08/18/18 08/12/18 History [Basaglar Kwikpen U-100] Lacosamide [Vimpat] 1 tab FEEDTUBE Q12HR 08/18/18 08/18/18 Unknown History Lipitor 10 mg FEEDTUBE DAILY 08/18/18 08/18/18 Unknown History Mag-Al Plus Suspension 5 ml FEEDTUBE Q4HR PRN 08/18/18 08/19/18 Unknown History Melatonin 3 mg FEEDTUBE HS 08/18/18 08/18/18 Unknown History Sucralfate [Carafate] 1 gm FEEDTUBE Q8H 08/18/18 08/18/18 08/13/18 History Tamsulosin 0.4 mg FEEDTUBE DAILY 08/18/18 08/18/18 Unknown History guaiFENesin 200 mg FEEDTUBE Q4H PRN 08/18/18 08/18/18 Unknown History Active Medications: Generic Name Dose Route Start Last Admin Trade Name Freq PRN Reason Stop Dose Admin Acetaminophen 650 mg 08/13/18 11:40 08/13/18 16:09 Tylenol PO 650 mg Q6H PRN Administration Fever >101 Lipase/Protease/Amylase 1 each 08/13/18 15:[address] 10,500 Unit FEEDTUBE PRN PRN For Clogged Feeding Tube Aspirin 325 mg 08/17/18 10:00 08/24/18 10:50 Aspirin PO 325 mg QDAY [facility] Administration Atorvastatin Calcium 40 mg 08/14/18 22:00 08/23/18 23:34 Lipitor PO 40 mg QHS [facility] Administration Dextrose 50 ml 08/13/18 01:34 D50w (25gm) Syringe IV PRN PRN Hypoglycemia Enoxaparin Sodium 40 mg 08/17/18 22:00 08/23/18 23:34 Lovenox SUB-Q 40 mg QDAY@2200 [facility] Administration Famotidine 20 mg 08/19/18 10:00 08/24/18 10:50 Pepcid PO 20 mg BID [facility] Administration Hydrophilic Ointment 1 applic 08/13/18 12:21 Vaseline Lip Therapy TP Q2HR PRN Dry Lips Fentanyl Citrate 2,000 mcg in 100 mls @ 3.629 mls/hr 08/14/18 13:00 Fentanyl Drip Premix IV TITR [facility] Protocol 1 MCG/KG/HR Insulin Glargine 44 units 08/25/18 08:00 Lantus SUB-Q QAMDIAB [facility] Insulin Human Lispro 0 unit 08/13/18 06:00 08/24/18 12:28 Humalog SUB-Q 3 unit Q6HR [facility] Administration Protocol Levetiracetam 1,000 mg 08/13/18 15:00 08/24/18 10:50 Keppra PO 1,000 mg BID [facility] Administration Multi-Ingred Cream/Lotion/Oil/Oint 1 applic 08/13/18 12:21 08/17/18 00:41 Artificial Tears Ophth Oint OU 1 applic Q4HR PRN Administration Dry Eye(s) Ondansetron HCl 4 mg 08/13/18 01:34 Zofran IV Q8H PRN Nausea And Vomiting Simple Syrup 15 ml 08/13/18 15:55 Simple Syrup FEEDTUBE PRN PRN Hypoglycemia Simple Syrup 30 ml 08/13/18 15:55 Simple Syrup FEEDTUBE PRN PRN Hypoglycemia Sodium Bicarbonate 325 mg 08/13/18 15:55 Sodium Bicarbonate FEEDTUBE PRN PRN For Clogged Feeding Tube Sodium Chloride 10 ml 08/13/18 10:00 08/24/18 10:51 Sodium Chloride Flush Syringe 10 Ml IV 10 ml BID LENCHO Administration Sodium Chloride 10 ml 08/13/18 01:34 Sodium Chloride Flush Syringe 10 Ml IV PRN PRN LINE FLUSH
--- NOTE | 2018-08-24 13:59 | XRay Report ---
AP ABDOMEN: HISTORY: Rule out intestinal obstruction. There is moderate stool throughout the colon and rectum. The abdominal gas pattern is unremarkable. No masses or organomegaly is identified and there is no gross evidence of free air or fluid. No significant soft tissue calcifications are noted. IMPRESSION: Fecal retention.
[2018-08-24] MEDS ORDERED: DULCOLAX PR ONE (16:56)
[2018-08-24] MEDS: LOVENOX SUB-Q SCH (22:00)
[2018-08-25 05:26] LABS: Hematocrit 25.1 % (35.5-45.6); Hemoglobin 8.4 gm/dl (11.8-15.2); Mean Corpuscular HGB Conc 34 % (32-34); Mean Corpuscular Volume 85 fl (84-94); Platelet Count 331 K/mm3 (140-440); Red Blood Count 2.94 M/mm3 (3.65-5.03); Red Cell Distribution Width 18.2 % (13.2-15.2)
[2018-08-25 05:51] LABS: BUN/Creatinine Ratio 33; Blood Urea Nitrogen 30 mg/dL (9-20); Calcium 8.1 mg/dL (8.4-10.2); Hemolysis Index 1
[2018-08-25] MEDS: HumaLOG SUB-Q SCH ×4 (06:00→18:35)
--- NOTE | 2018-08-25 09:01 | Progress Note ---
Assessment and Plan Acute hypoxemic respiratory failure on chronic on MVS . Status post cardiac arrest. Seizure disorder with breakthrough seizures. History of diabetes. History of cerebrovascular accident. Oropharyngeal dysphagia. History of seizures. Hypernatremia, improving -Continue free water flushes for hypernatremia, follow up BMP--results are pending Continue all current care as documented below -Adequate gas exchange - Continue MVS - Lung protective strategies - VAP bundle addressed - SBTs daily as tolerated -Supportive transfusions, to keep HgB >7g/dL - Continue Keppra for seizures with prn ativan IV for breakthrough - Continue Stress ulcer & VTE prophylaxis - Continue bronchodilators with pulmonary hygiene per RT - Continue to wean supplemental oxygen to keep O2 sats 88-90% - Chronic home medications - Replete electrolytes as indicated - Monitor renal indices closely - Avoid nephrotoxic agents, adjust all medications for CrCL - Strict intake and output monitoring - Continue enteral nutrition as tolerated - Continue accuchecks with glycemic control - Target glucose of 140-180 mg/dL - Maintenance of sleep -wake cycle - Mobility as tolerated by hemodynamics - Influenza and pneumonia vaccination per protocol ....discussed with RT/RN Trachesotomy placement today. Get EEG in the morning, if normal start a neurostimulant to help with weaning. Start discharge planning, will need LTACH for weaning PROGNOSIS: GUARDED -POOR CONDITION: CRITICAL CODE STATUS: FULL CODE The high probability of a clinically significant, sudden or life-threatening deterioration of the [respiratory, neurology, renal] system(s) required my full and direct attention, intervention and personal management. The aggregate critical care time was [31] minutes without overlap. Time includes spent on; [x] Data Review and interpretation [x] Patient assessment and monitoring of vital signs [x] Documentation [x] Medication orders and management Subjective Date of service: 08/25/18 Principal diagnosis: Acute hypoxemic resp failure; S/P cardiac arrest; Seizures; DM II; H/O CVA Interval history: Patient is seen today for: Acute hypoxemic respiratory failure on chronic; Status post cardiac arrest; Seizure disorder with breakthrough seizures; History of diabetes; History of cerebrovascular accident; Oropharyngeal dysphagia; History of seizures. Seen and examined at bedside; 24hour events reviewed; nursing and respiratory care staff consulted; no adverse overnight events reported to me; remains on MVS; AMS is persistent; no emesis or overt aspiration; no fevers or chills reported and no seizure activity, no vomiting, no acute overnight events Vent settings AC-PRVC 12/400/6/24% ABG 7.43/35.5/91/23.4. Apneaic when placed on PSV Trachesotomy today Objective Vital Signs - 12hr 08/24/18 08/24/18 08/24/18 22:00 23:00 23:03 Temperature Pulse Rate 68 68 68 Pulse Rate [ From Monitor] Respiratory 12 10 L Rate Blood Pressure 129/59 130/61 130/61 O2 Sat by Pulse 100 100 100 Oximetry 08/24/18 08/25/18 08/25/18 23:16 00:00 01:00 Temperature 99.4 F Pulse Rate 68 66 Pulse Rate [ 68 From Monitor] Respiratory 11 L 15 Rate Blood Pressure 132/63 123/58 O2 Sat by Pulse 100 100 Oximetry 08/25/18 08/25/18 08/25/18 02:00 03:00 03:50 Temperature 98.8 F Pulse Rate 67 68 Pulse Rate [ From Monitor] Respiratory 13 13 Rate Blood Pressure 128/60 125/60 O2 Sat by Pulse 100 100 Oximetry 08/25/18 08/25/18 08/25/18 04:00 05:00 06:00 Temperature Pulse Rate 68 65 66 Pulse Rate [ 68 From Monitor] Respiratory 13 11 L 12 Rate Blood Pressure 134/58 127/56 122/57 O2 Sat by Pulse 100 100 100 Oximetry 08/25/18 08/25/18 08/25/18 07:00 08:00 08:33 Temperature 97.7 F Pulse Rate 63 65 Pulse Rate [ From Monitor] Respiratory 12 Rate Blood Pressure 126/58 130/59 O2 Sat by Pulse 100 100 Oximetry Constitutional: no acute distress, other (Elderly looking AAM, normocephalic resting in bed on MVS) Eyes: non-icteric ENT: oropharynx moist, other (ETT 23-24 cm JOVI) Neck: supple, no lymphadenopathy, no JVD, other (no thyromegaly) Effort: normal Ascultation: Bilateral: diminished breath sounds, rhonchi Percussion: Bilateral: not dull Cardiovascular: regular rate and rhythm, other (S1,S2, no murmurs, gallops or rubs) Gastrointestinal: normoactive bowel sounds, soft, non-tender, non-distended Integumentary: normal Extremities: no cyanosis, pulses normal, no ischemia or petechiae, edema (trace ) Neurologic: unable to assess Psychiatric: other (unable to assess) CBC and BMP: 08/26/18 04:39 08/26/18 04:39 ABG, PT/INR, D-dimer: ABG POC ABG pH 7.427 (7.35-7.45) 08/24/18 00:10 POC ABG pCO2 35.5 (35-45) 08/24/18 00:10 POC ABG pO2 91 (80-105) 08/24/18 00:10 POC ABG HCO3 23.4 (22-26 mml/L) 08/24/18 00:10 POC ABG Total CO2 24 (23-27mmol/L) 08/24/18 00:10 POC ABG O2 Sat 97 08/24/18 00:10 PT/INR, D-dimer PT 16.5 Sec. (12.2-14.9) H 08/13/18 00:47 INR 1.25 (0.87-1.13) H 08/13/18 00:47 2742.50 ng/mlDDU (0-234) H 08/13/18 20:07 Abnormal lab findings: Abnormal Labs 08/12/18 08/12/18 08/12/18 21:44 21:44 21:44 WBC 15.5 H RBC 3.12 L Hgb 8.8 L Hct 28.9 L MCHC 31 L RDW 19.5 H [place] % (Auto) [place] # Seg Neutrophils % Lymphocytes % (Manual) 48.0 H Seg Neutrophils # Lymphocytes # (Manual) 7.4 H PT 17.8 H INR 1.37 H APTT D-Dimer Heparin Anti-Xa Level POC ABG pH POC ABG pCO2 POC ABG pO2 Sodium 159 H Potassium Chloride 118.5 H Carbon Dioxide BUN 34 H Creatinine Glucose 161 H POC Glucose Lactic Acid Calcium Magnesium AST Alkaline Phosphatase Total Creatine Kinase CK-MB (CK-2) Troponin T 0.105 H* C-Reactive Protein Total Protein Albumin Cholesterol LDL Cholesterol Direct HDL Cholesterol Urine WBC (Auto) Urine Creatinine Urine Total Protein Crossmatch 08/13/18 08/13/18 08/13/18 00:32 00:47 00:47 WBC RBC Hgb 9.2 L Hct 29.6 L MCHC RDW [place] % (Auto) [place] # Seg Neutrophils % Lymphocytes % (Manual) Seg Neutrophils # Lymphocytes # (Manual) PT 16.5 H INR 1.25 H APTT 37.3 H D-Dimer Heparin Anti-Xa Level POC ABG pH POC ABG pCO2 POC ABG pO2 Sodium Potassium Chloride Carbon Dioxide BUN Creatinine Glucose POC Glucose Lactic Acid Calcium Magnesium AST Alkaline Phosphatase Total Creatine Kinase 211 H CK-MB (CK-2) 7.7 H Troponin T 0.169 H* D C-Reactive Protein Total Protein Albumin Cholesterol 46 L LDL Cholesterol Direct 17 L HDL Cholesterol 6 L Urine WBC (Auto) Urine Creatinine Urine Total Protein Crossmatch 08/13/18 08/13/18 08/13/18 00:50 02:25 05:34 WBC RBC Hgb Hct MCHC RDW [place] % (Auto) [place] # Seg Neutrophils % Lymphocytes % (Manual) Seg Neutrophils # Lymphocytes # (Manual) PT INR APTT D-Dimer Heparin Anti-Xa Level POC ABG pH 7.503 H POC ABG pCO2 POC ABG pO2 253 H Sodium Potassium Chloride Carbon Dioxide BUN Creatinine Glucose POC Glucose Lactic Acid Calcium Magnesium AST Alkaline Phosphatase Total Creatine Kinase 311 H CK-MB (CK-2) 10.4 H Troponin T 0.283 H* D C-Reactive Protein Total Protein Albumin Cholesterol LDL Cholesterol Direct HDL Cholesterol Urine WBC (Auto) > 182.0 H Urine Creatinine Urine Total Protein Crossmatch 08/13/18 08/13/18 08/13/18 06:35 10:10 10:10 WBC RBC Hgb Hct MCHC RDW [place] % (Auto) [place] # Seg Neutrophils % Lymphocytes % (Manual) Seg Neutrophils # Lymphocytes # (Manual) PT INR APTT D-Dimer Heparin Anti-Xa Level POC ABG pH 7.554 H POC ABG pCO2 33.5 L POC ABG pO2 220 H Sodium 158 H Potassium Chloride 117.1 H Carbon Dioxide BUN 53 H Creatinine 2.0 H Glucose 247 H POC Glucose Lactic Acid Calcium 8.2 L Magnesium AST Alkaline Phosphatase Total Creatine Kinase 309 H CK-MB (CK-2) 4.1 H Troponin T 0.470 H* D C-Reactive Protein Total Protein Albumin Cholesterol LDL Cholesterol Direct HDL Cholesterol Urine WBC (Auto) Urine Creatinine Urine Total Protein Crossmatch 08/13/18 08/13/18 08/13/18 12:53 12:53 17:55 WBC RBC Hgb Hct MCHC RDW [place] % (Auto) [place] # Seg Neutrophils % Lymphocytes % (Manual) Seg Neutrophils # Lymphocytes # (Manual) PT INR APTT D-Dimer Heparin Anti-Xa Level POC ABG pH POC ABG pCO2 POC ABG pO2 Sodium Potassium Chloride Carbon Dioxide BUN Creatinine Glucose POC Glucose 308 H Lactic Acid 2.80 H* Calcium Magnesium 2.50 H AST Alkaline Phosphatase Total Creatine Kinase CK-MB (CK-2) Troponin T C-Reactive Protein 16.90 H Total Protein Albumin Cholesterol LDL Cholesterol Direct HDL Cholesterol Urine WBC (Auto) Urine Creatinine Urine Total Protein Crossmatch 08/13/18 08/13/18 08/13/18 20:07 21:16 23:17 WBC RBC Hgb Hct MCHC RDW [place] % (Auto) [place] # Seg Neutrophils % Lymphocytes % (Manual) Seg Neutrophils # Lymphocytes # (Manual) PT INR APTT D-Dimer 2742.50 H Heparin Anti-Xa Level POC ABG pH 7.483 H POC ABG pCO2 30.8 L POC ABG pO2 150 H Sodium Potassium Chloride Carbon Dioxide BUN Creatinine Glucose POC Glucose 245 H Lactic Acid Calcium Magnesium AST Alkaline Phosphatase Total Creatine Kinase CK-MB (CK-2) Troponin T C-Reactive Protein Total Protein Albumin Cholesterol LDL Cholesterol Direct HDL Cholesterol Urine WBC (Auto) Urine Creatinine Urine Total Protein Crossmatch 08/14/18 08/14/18 08/14/18 04:03 04:03 04:56 WBC 18.2 H RBC 2.62 L Hgb 7.3 L Hct 24.5 L MCHC RDW 18.9 H [place] % (Auto) [place] # 1.2 H Seg Neutrophils % 79.4 H Lymphocytes % (Manual) Seg Neutrophils # 14.5 H Lymphocytes # (Manual) PT INR APTT D-Dimer Heparin Anti-Xa Level POC ABG pH POC ABG pCO2 33.5 L POC ABG pO2 153 H Sodium 152 H Potassium 3.4 L Chloride 113.8 H Carbon Dioxide BUN 72 H Creatinine 2.7 H Glucose 239 H POC Glucose Lactic Acid Calcium 7.6 L Magnesium AST 50 H Alkaline Phosphatase 219 H Total Creatine Kinase CK-MB (CK-2) Troponin T 0.409 H* C-Reactive Protein Total Protein 6.2 L Albumin 1.9 L Cholesterol LDL Cholesterol Direct HDL Cholesterol Urine WBC (Auto) Urine Creatinine Urine Total Protein Crossmatch 08/14/18 08/14/18 08/14/18 05:18 13:38 15:35 WBC RBC Hgb Hct MCHC RDW [place] % (Auto) [place] # Seg Neutrophils % Lymphocytes % (Manual) Seg Neutrophils # Lymphocytes # (Manual) PT INR APTT D-Dimer Heparin Anti-Xa Level POC ABG pH POC ABG pCO2 POC ABG pO2 Sodium 150 H Potassium 3.2 L Chloride 114.5 H Carbon Dioxide BUN 69 H Creatinine 2.3 H Glucose 247 H POC Glucose 242 H 296 H Lactic Acid Calcium 7.2 L Magnesium AST Alkaline Phosphatase Total Creatine Kinase CK-MB (CK-2) Troponin T C-Reactive Protein Total Protein Albumin Cholesterol LDL Cholesterol Direct HDL Cholesterol Urine WBC (Auto) Urine Creatinine Urine Total Protein Crossmatch 08/14/18 08/14/18 08/14/18 17:01 17:20 23:47 WBC RBC Hgb Hct MCHC RDW [place] % (Auto) [place] # Seg Neutrophils % Lymphocytes % (Manual) Seg Neutrophils # Lymphocytes # (Manual) PT INR APTT D-Dimer Heparin Anti-Xa Level POC ABG pH POC ABG pCO2 POC ABG pO2 Sodium Potassium Chloride Carbon Dioxide BUN Creatinine Glucose POC Glucose 261 H 280 H Lactic Acid Calcium Magnesium AST Alkaline Phosphatase Total Creatine Kinase CK-MB (CK-2) Troponin T C-Reactive Protein Total Protein Albumin Cholesterol LDL Cholesterol Direct HDL Cholesterol Urine WBC (Auto) Urine Creatinine 60.9 H Urine Total Protein 64 H Crossmatch 08/15/18 08/15/18 08/15/18 04:05 04:05 04:05 WBC RBC Hgb 6.3 L Hct 19.7 L* MCHC RDW [place] % (Auto) [place] # Seg Neutrophils % Lymphocytes % (Manual) Seg Neutrophils # Lymphocytes # (Manual) PT INR APTT D-Dimer Heparin Anti-Xa Level 0.17 L POC ABG pH POC ABG pCO2 POC ABG pO2 Sodium 146 H Potassium 3.0 L Chloride 110.6 H Carbon Dioxide BUN 64 H Creatinine 2.2 H Glucose 231 H POC Glucose Lactic Acid Calcium 7.1 L Magnesium AST Alkaline Phosphatase Total Creatine Kinase CK-MB (CK-2) Troponin T C-Reactive Protein Total Protein Albumin Cholesterol LDL Cholesterol Direct HDL Cholesterol Urine WBC (Auto) Urine Creatinine Urine Total Protein Crossmatch 08/15/18 08/15/18 08/15/18 05:21 05:26 06:35 WBC RBC Hgb Hct MCHC RDW [place] % (Auto) [place] # Seg Neutrophils % Lymphocytes % (Manual) Seg Neutrophils # Lymphocytes # (Manual) PT INR APTT 79.0 H* D-Dimer Heparin Anti-Xa Level POC ABG pH 7.494 H POC ABG pCO2 POC ABG pO2 155 H Sodium Potassium Chloride Carbon Dioxide BUN Creatinine Glucose POC Glucose 271 H Lactic Acid Calcium Magnesium AST Alkaline Phosphatase Total Creatine Kinase CK-MB (CK-2) Troponin T C-Reactive Protein Total Protein Albumin Cholesterol LDL Cholesterol Direct HDL Cholesterol Urine WBC (Auto) Urine Creatinine Urine Total Protein Crossmatch 08/15/18 08/15/18 08/15/18 12:10 15:31 17:27 WBC RBC Hgb Hct MCHC RDW [place] % (Auto) [place] # Seg Neutrophils % Lymphocytes % (Manual) Seg Neutrophils # Lymphocytes # (Manual) PT INR APTT D-Dimer Heparin Anti-Xa Level POC ABG pH POC ABG pCO2 POC ABG pO2 Sodium Potassium Chloride Carbon Dioxide BUN Creatinine Glucose POC Glucose 301 H 287 H Lactic Acid Calcium Magnesium AST Alkaline Phosphatase Total Creatine Kinase CK-MB (CK-2) Troponin T C-Reactive Protein Total Protein Albumin Cholesterol LDL Cholesterol Direct HDL Cholesterol Urine WBC (Auto) Urine Creatinine Urine Total Protein Crossmatch See Detail 08/15/18 08/15/18 08/16/18 21:41 23:45 04:13 WBC RBC Hgb Hct MCHC RDW [place] % (Auto) [place] # Seg Neutrophils % Lymphocytes % (Manual) Seg Neutrophils # Lymphocytes # (Manual) PT INR APTT D-Dimer Heparin Anti-Xa Level 0.19 L POC ABG pH POC ABG pCO2 32.1 L POC ABG pO2 107 H Sodium Potassium Chloride Carbon Dioxide BUN Creatinine Glucose POC Glucose 163 H Lactic Acid Calcium Magnesium AST Alkaline Phosphatase Total Creatine Kinase CK-MB (CK-2) Troponin T C-Reactive Protein Total Protein Albumin Cholesterol LDL Cholesterol Direct HDL Cholesterol Urine WBC (Auto) Urine Creatinine Urine Total Protein Crossmatch 08/16/18 08/16/18 08/16/18 04:50 05:28 11:30 WBC RBC 2.67 L Hgb 8.1 L Hct 23.4 L MCHC 35 H RDW 18.3 H [place] % (Auto) [place] # Seg Neutrophils % Lymphocytes % (Manual) Seg Neutrophils # Lymphocytes # (Manual) PT INR APTT D-Dimer Heparin Anti-Xa Level 0.19 L POC ABG pH POC ABG pCO2 POC ABG pO2 Sodium Potassium Chloride Carbon Dioxide BUN Creatinine Glucose POC Glucose 141 H Lactic Acid Calcium Magnesium AST Alkaline Phosphatase Total Creatine Kinase CK-MB (CK-2) Troponin T C-Reactive Protein Total Protein Albumin Cholesterol LDL Cholesterol Direct HDL Cholesterol Urine WBC (Auto) Urine Creatinine Urine Total Protein Crossmatch 08/16/18 08/16/18 08/16/18 11:30 12:00 12:01 WBC RBC Hgb Hct MCHC RDW [place] % (Auto) [place] # Seg Neutrophils % Lymphocytes % (Manual) Seg Neutrophils # Lymphocytes # (Manual) PT INR APTT D-Dimer Heparin Anti-Xa Level 0.15 L POC ABG pH POC ABG pCO2 POC ABG pO2 Sodium Potassium Chloride 107.8 H Carbon Dioxide 21 L BUN 47 H Creatinine 1.6 H Glucose 221 H POC Glucose 267 H Lactic Acid Calcium 6.9 L Magnesium AST Alkaline Phosphatase Total Creatine Kinase CK-MB (CK-2) Troponin T C-Reactive Protein Total Protein Albumin Cholesterol LDL Cholesterol Direct HDL Cholesterol Urine WBC (Auto) Urine Creatinine Urine Total Protein Crossmatch 08/16/18 08/16/18 08/16/18 17:23 20:01 23:13 WBC RBC Hgb Hct MCHC RDW [place] % (Auto) [place] # Seg Neutrophils % Lymphocytes % (Manual) Seg Neutrophils # Lymphocytes # (Manual) PT INR APTT D-Dimer Heparin Anti-Xa Level 0.26 L POC ABG pH POC ABG pCO2 POC ABG pO2 Sodium Potassium Chloride Carbon Dioxide BUN Creatinine Glucose POC Glucose 245 H 256 H Lactic Acid Calcium Magnesium AST Alkaline Phosphatase Total Creatine Kinase CK-MB (CK-2) Troponin T C-Reactive Protein Total Protein Albumin Cholesterol LDL Cholesterol Direct HDL Cholesterol Urine WBC (Auto) Urine Creatinine Urine Total Protein Crossmatch 08/17/18 08/17/18 08/17/18 04:29 04:55 05:34 WBC RBC Hgb 8.2 L Hct 24.3 L MCHC RDW [place] % (Auto) [place] # Seg Neutrophils % Lymphocytes % (Manual) Seg Neutrophils # Lymphocytes # (Manual) PT INR APTT D-Dimer Heparin Anti-Xa Level POC ABG pH POC ABG pCO2 32.4 L POC ABG pO2 108 H Sodium Potassium Chloride Carbon Dioxide BUN Creatinine Glucose POC Glucose 268 H Lactic Acid Calcium Magnesium AST Alkaline Phosphatase Total Creatine Kinase CK-MB (CK-2) Troponin T C-Reactive Protein Total Protein Albumin Cholesterol LDL Cholesterol Direct HDL Cholesterol Urine WBC (Auto) Urine Creatinine Urine Total Protein Crossmatch 08/17/18 08/17/18 08/17/18 11:54 13:44 17:24 WBC RBC Hgb Hct MCHC RDW [place] % (Auto) [place] # Seg Neutrophils % Lymphocytes % (Manual) Seg Neutrophils # Lymphocytes # (Manual) PT INR APTT D-Dimer Heparin Anti-Xa Level POC ABG pH POC ABG pCO2 32.7 L POC ABG pO2 142 H Sodium Potassium Chloride Carbon Dioxide BUN Creatinine Glucose POC Glucose 295 H 283 H Lactic Acid Calcium Magnesium AST Alkaline Phosphatase Total Creatine Kinase CK-MB (CK-2) Troponin T C-Reactive Protein Total Protein Albumin Cholesterol LDL Cholesterol Direct HDL Cholesterol Urine WBC (Auto) Urine Creatinine Urine Total Protein Crossmatch 08/18/18 08/18/18 08/18/18 00:05 00:59 04:15 WBC RBC Hgb Hct MCHC RDW [place] % (Auto) [place] # Seg Neutrophils % Lymphocytes % (Manual) Seg Neutrophils # Lymphocytes # (Manual) PT INR APTT D-Dimer Heparin Anti-Xa Level POC ABG pH POC ABG pCO2 POC ABG pO2 115 H Sodium Potassium Chloride Carbon Dioxide BUN Creatinine Glucose POC Glucose 247 H 251 H Lactic Acid Calcium Magnesium AST Alkaline Phosphatase Total Creatine Kinase CK-MB (CK-2) Troponin T C-Reactive Protein Total Protein Albumin Cholesterol LDL Cholesterol Direct HDL Cholesterol Urine WBC (Auto) Urine Creatinine Urine Total Protein Crossmatch 08/18/18 08/18/18 08/18/18 05:02 12:20 17:51 WBC RBC Hgb Hct MCHC RDW [place] % (Auto) [place] # Seg Neutrophils % Lymphocytes % (Manual) Seg Neutrophils # Lymphocytes # (Manual) PT INR APTT D-Dimer Heparin Anti-Xa Level POC ABG pH POC ABG pCO2 POC ABG pO2 Sodium Potassium Chloride Carbon Dioxide BUN Creatinine Glucose POC Glucose 282 H 209 H 261 H Lactic Acid Calcium Magnesium AST Alkaline Phosphatase Total Creatine Kinase CK-MB (CK-2) Troponin T C-Reactive Protein Total Protein Albumin Cholesterol LDL Cholesterol Direct HDL Cholesterol Urine WBC (Auto) Urine Creatinine Urine Total Protein Crossmatch 08/18/18 08/19/18 08/19/18 23:30 04:54 05:16 WBC RBC 2.62 L Hgb 7.5 L Hct 23.1 L MCHC RDW 18.1 H [place] % (Auto) [place] # Seg Neutrophils % Lymphocytes % (Manual) Seg Neutrophils # Lymphocytes # (Manual) PT INR APTT D-Dimer Heparin Anti-Xa Level POC ABG pH POC ABG pCO2 POC ABG pO2 58 L Sodium Potassium Chloride Carbon Dioxide BUN Creatinine Glucose POC Glucose 231 H Lactic Acid Calcium Magnesium AST Alkaline Phosphatase Total Creatine Kinase CK-MB (CK-2) Troponin T C-Reactive Protein Total Protein Albumin Cholesterol LDL Cholesterol Direct HDL Cholesterol Urine WBC (Auto) Urine Creatinine Urine Total Protein Crossmatch 08/19/18 08/19/18 08/19/18 05:16 05:40 11:56 WBC RBC Hgb Hct MCHC RDW [place] % (Auto) [place] # Seg Neutrophils % Lymphocytes % (Manual) Seg Neutrophils # Lymphocytes # (Manual) PT INR APTT D-Dimer Heparin Anti-Xa Level POC ABG pH POC ABG pCO2 POC ABG pO2 Sodium 152 H D Potassium Chloride 118.7 H Carbon Dioxide BUN 38 H Creatinine Glucose 220 H POC Glucose 227 H 213 H Lactic Acid Calcium 8.1 L D Magnesium AST Alkaline Phosphatase Total Creatine Kinase CK-MB (CK-2) Troponin T C-Reactive Protein Total Protein Albumin Cholesterol LDL Cholesterol Direct HDL Cholesterol Urine WBC (Auto) Urine Creatinine Urine Total Protein Crossmatch 08/19/18 08/19/18 08/20/18 18:37 23:32 04:38 WBC RBC Hgb Hct MCHC RDW [place] % (Auto) [place] # Seg Neutrophils % Lymphocytes % (Manual) Seg Neutrophils # Lymphocytes # (Manual) PT INR APTT D-Dimer Heparin Anti-Xa Level POC ABG pH POC ABG pCO2 POC ABG pO2 140 H Sodium Potassium Chloride Carbon Dioxide BUN Creatinine Glucose POC Glucose 227 H 245 H Lactic Acid Calcium Magnesium AST Alkaline Phosphatase Total Creatine Kinase CK-MB (CK-2) Troponin T C-Reactive Protein Total Protein Albumin Cholesterol LDL Cholesterol Direct HDL Cholesterol Urine WBC (Auto) Urine Creatinine Urine Total Protein Crossmatch 08/20/18 08/20/18 08/20/18 05:31 05:37 05:37 WBC RBC 2.60 L Hgb 7.5 L Hct 22.9 L MCHC RDW 18.4 H [place] % (Auto) [place] # Seg Neutrophils % Lymphocytes % (Manual) Seg Neutrophils # Lymphocytes # (Manual) PT INR APTT D-Dimer Heparin Anti-Xa Level POC ABG pH POC ABG pCO2 POC ABG pO2 Sodium 150 H Potassium Chloride 115.6 H Carbon Dioxide BUN 38 H Creatinine Glucose 276 H POC Glucose 266 H Lactic Acid Calcium 7.9 L Magnesium AST Alkaline Phosphatase Total Creatine Kinase CK-MB (CK-2) Troponin T C-Reactive Protein Total Protein Albumin Cholesterol LDL Cholesterol Direct HDL Cholesterol Urine WBC (Auto) Urine Creatinine Urine Total Protein Crossmatch 08/20/18 08/20/18 08/20/18 14:01 18:20 23:11 WBC RBC Hgb Hct MCHC RDW [place] % (Auto) [place] # Seg Neutrophils % Lymphocytes % (Manual) Seg Neutrophils # Lymphocytes # (Manual) PT INR APTT D-Dimer Heparin Anti-Xa Level POC ABG pH POC ABG pCO2 POC ABG pO2 Sodium Potassium Chloride Carbon Dioxide BUN Creatinine Glucose POC Glucose 305 H 271 H 218 H Lactic Acid Calcium Magnesium AST Alkaline Phosphatase Total Creatine Kinase CK-MB (CK-2) Troponin T C-Reactive Protein Total Protein Albumin Cholesterol LDL Cholesterol Direct HDL Cholesterol Urine WBC (Auto) Urine Creatinine Urine Total Protein Crossmatch 08/21/18 08/21/18 08/21/18 04:41 04:41 06:20 WBC RBC 2.65 L Hgb 7.6 L Hct 23.3 L MCHC RDW 19.1 H [place] % (Auto) [place] # Seg Neutrophils % Lymphocytes % (Manual) Seg Neutrophils # Lymphocytes # (Manual) PT INR APTT D-Dimer Heparin Anti-Xa Level POC ABG pH POC ABG pCO2 POC ABG pO2 Sodium 150 H Potassium Chloride 117.8 H Carbon Dioxide BUN 37 H Creatinine Glucose 233 H POC Glucose 262 H Lactic Acid Calcium 7.9 L Magnesium AST Alkaline Phosphatase Total Creatine Kinase CK-MB (CK-2) Troponin T C-Reactive Protein Total Protein Albumin Cholesterol LDL Cholesterol Direct HDL Cholesterol Urine WBC (Auto) Urine Creatinine Urine Total Protein Crossmatch 08/21/18 08/21/18 08/21/18 10:18 12:04 12:36 WBC RBC Hgb Hct MCHC RDW [place] % (Auto) [place] # Seg Neutrophils % Lymphocytes % (Manual) Seg Neutrophils # Lymphocytes # (Manual) PT INR APTT D-Dimer Heparin Anti-Xa Level POC ABG pH POC ABG pCO2 POC ABG pO2 Sodium Potassium Chloride Carbon Dioxide BUN Creatinine Glucose POC Glucose 256 H 245 H 255 H Lactic Acid Calcium Magnesium AST Alkaline Phosphatase Total Creatine Kinase CK-MB (CK-2) Troponin T C-Reactive Protein Total Protein Albumin Cholesterol LDL Cholesterol Direct HDL Cholesterol Urine WBC (Auto) Urine Creatinine Urine Total Protein Crossmatch 08/21/18 08/21/18 08/22/18 17:36 23:29 05:01 WBC RBC Hgb Hct MCHC RDW [place] % (Auto) [place] # Seg Neutrophils % Lymphocytes % (Manual) Seg Neutrophils # Lymphocytes # (Manual) PT INR APTT D-Dimer Heparin Anti-Xa Level POC ABG pH 7.466 H POC ABG pCO2 33.8 L POC ABG pO2 111 H Sodium Potassium Chloride Carbon Dioxide BUN Creatinine Glucose POC Glucose 263 H 268 H Lactic Acid Calcium Magnesium AST Alkaline Phosphatase Total Creatine Kinase CK-MB (CK-2) Troponin T C-Reactive Protein Total Protein Albumin Cholesterol LDL Cholesterol Direct HDL Cholesterol Urine WBC (Auto) Urine Creatinine Urine Total Protein Crossmatch 08/22/18 08/22/18 08/22/18 05:05 12:05 12:15 WBC RBC Hgb Hct MCHC RDW [place] % (Auto) [place] # Seg Neutrophils % Lymphocytes % (Manual) Seg Neutrophils # Lymphocytes # (Manual) PT INR APTT D-Dimer Heparin Anti-Xa Level POC ABG pH POC ABG pCO2 POC ABG pO2 Sodium 147 H Potassium Chloride 113.2 H Carbon Dioxide BUN 36 H Creatinine Glucose 249 H POC Glucose 256 H 228 H Lactic Acid Calcium 8.2 L Magnesium AST Alkaline Phosphatase Total Creatine Kinase CK-MB (CK-2) Troponin T C-Reactive Protein Total Protein Albumin Cholesterol LDL Cholesterol Direct HDL Cholesterol Urine WBC (Auto) Urine Creatinine Urine Total Protein Crossmatch 08/22/18 08/23/18 08/23/18 17:30 00:03 05:05 WBC RBC Hgb Hct MCHC RDW [place] % (Auto) [place] # Seg Neutrophils % Lymphocytes % (Manual) Seg Neutrophils # Lymphocytes # (Manual) PT INR APTT D-Dimer Heparin Anti-Xa Level POC ABG pH POC ABG pCO2 POC ABG pO2 Sodium Potassium Chloride Carbon Dioxide BUN Creatinine Glucose POC Glucose 291 H 259 H 247 H Lactic Acid Calcium Magnesium AST Alkaline Phosphatase Total Creatine Kinase CK-MB (CK-2) Troponin T C-Reactive Protein Total Protein Albumin Cholesterol LDL Cholesterol Direct HDL Cholesterol Urine WBC (Auto) Urine Creatinine Urine Total Protein Crossmatch 08/23/18 08/23/18 08/23/18 05:14 12:29 17:21 WBC RBC Hgb Hct MCHC RDW [place] % (Auto) [place] # Seg Neutrophils % Lymphocytes % (Manual) Seg Neutrophils # Lymphocytes # (Manual) PT INR APTT D-Dimer Heparin Anti-Xa Level POC ABG pH POC ABG pCO2 POC ABG pO2 Sodium Potassium Chloride Carbon Dioxide BUN Creatinine Glucose POC Glucose 208 H 138 H 175 H Lactic Acid Calcium Magnesium AST Alkaline Phosphatase Total Creatine Kinase CK-MB (CK-2) Troponin T C-Reactive Protein Total Protein Albumin Cholesterol LDL Cholesterol Direct HDL Cholesterol Urine WBC (Auto) Urine Creatinine Urine Total Protein Crossmatch 08/23/18 08/24/18 08/24/18 23:36 01:00 05:50 WBC RBC 2.92 L 2.90 L Hgb 8.3 L 8.2 L Hct 25.4 L 25.2 L MCHC RDW 18.9 H 18.6 H [place] % (Auto) 9.2 H [place] # Seg Neutrophils % Lymphocytes % (Manual) Seg Neutrophils # Lymphocytes # (Manual) PT INR APTT D-Dimer Heparin Anti-Xa Level POC ABG pH POC ABG pCO2 POC ABG pO2 Sodium Potassium Chloride Carbon Dioxide BUN Creatinine Glucose POC Glucose 163 H Lactic Acid Calcium Magnesium AST Alkaline Phosphatase Total Creatine Kinase CK-MB (CK-2) Troponin T C-Reactive Protein Total Protein Albumin Cholesterol LDL Cholesterol Direct HDL Cholesterol Urine WBC (Auto) Urine Creatinine Urine Total Protein Crossmatch 08/24/18 08/24/18 08/24/18 05:50 12:26 18:37 WBC RBC Hgb Hct MCHC RDW [place] % (Auto) [place] # Seg Neutrophils % Lymphocytes % (Manual) Seg Neutrophils # Lymphocytes # (Manual) PT INR APTT D-Dimer Heparin Anti-Xa Level POC ABG pH POC ABG pCO2 POC ABG pO2 Sodium 147 H Potassium Chloride 113.6 H Carbon Dioxide BUN 33 H Creatinine Glucose 210 H POC Glucose 223 H 166 H Lactic Acid Calcium 8.3 L Magnesium AST Alkaline Phosphatase Total Creatine Kinase CK-MB (CK-2) Troponin T C-Reactive Protein Total Protein Albumin Cholesterol LDL Cholesterol Direct HDL Cholesterol Urine WBC (Auto) Urine Creatinine Urine Total Protein Crossmatch 08/24/18 08/25/18 08/25/18 23:47 04:55 04:55 WBC RBC 2.94 L Hgb 8.4 L Hct 25.1 L MCHC RDW 18.2 H [place] % (Auto) [place] # Seg Neutrophils % Lymphocytes % (Manual) Seg Neutrophils # Lymphocytes # (Manual) PT INR APTT D-Dimer Heparin Anti-Xa Level POC ABG pH POC ABG pCO2 POC ABG pO2 Sodium Potassium Chloride 110.2 H Carbon Dioxide BUN 30 H Creatinine Glucose POC Glucose 126 H Lactic Acid Calcium 8.1 L Magnesium AST Alkaline Phosphatase Total Creatine Kinase CK-MB (CK-2) Troponin T C-Reactive Protein Total Protein Albumin Cholesterol LDL Cholesterol Direct HDL Cholesterol Urine WBC (Auto) Urine Creatinine Urine Total Protein Crossmatch Allied health notes reviewed: nursing
--- NOTE | 2018-08-25 09:36 | Progress Note ---
Assessment and Plan - Patient Problems (1) MAYLIN (acute kidney injury) Current Visit: Yes Status: Acute Plan to address problem: Acute kidney injury prerenal azotemia versus acute tubular necrosis. Kidney function improved. Continue volume repletion Follow-up electrolytes and renal function (2) Hypernatremia Current Visit: Yes Status: Acute Plan to address problem: Sodium normalized. cont free water replacement. Follow-up sodium (3) Acute and chronic respiratory failure Current Visit: Yes Status: Acute Qualifiers: Respiratory failure complication: hypoxia Qualified Code(s): J96.21 - Acute and chronic respiratory failure with hypoxia Plan to address problem: vent management as per pulmonary/CCM (4) Type 2 diabetes mellitus without complications Current Visit: Yes Status: Acute Plan to address problem: Blood sugar management by primary attending. (5) Essential (primary) hypertension Current Visit: Yes Status: Acute Plan to address problem: Blood pressure was low on presentation but has improved. Follow-up blood pressure Subjective Date of service: 08/25/18 Principal diagnosis: Acute hypoxemic resp failure; S/P cardiac arrest; Seizures; DM II; H/O CVA Interval history: pt remains on ventilator, unresponsive. Objective - Vital Signs Vital signs: Vital Signs - 12hr 08/24/18 08/24/18 08/24/18 22:00 23:00 23:03 Temperature Pulse Rate 68 68 68 Pulse Rate [ From Monitor] Respiratory 12 10 L Rate Blood Pressure 129/59 130/61 130/61 O2 Sat by Pulse 100 100 100 Oximetry 08/24/18 08/25/18 08/25/18 23:16 00:00 01:00 Temperature 99.4 F Pulse Rate 68 66 Pulse Rate [ 68 From Monitor] Respiratory 11 L 15 Rate Blood Pressure 132/63 123/58 O2 Sat by Pulse 100 100 Oximetry 08/25/18 08/25/18 08/25/18 02:00 03:00 03:50 Temperature 98.8 F Pulse Rate 67 68 Pulse Rate [ From Monitor] Respiratory 13 13 Rate Blood Pressure 128/60 125/60 O2 Sat by Pulse 100 100 Oximetry 08/25/18 08/25/18 08/25/18 04:00 05:00 06:00 Temperature Pulse Rate 68 65 66 Pulse Rate [ 68 From Monitor] Respiratory 13 11 L 12 Rate Blood Pressure 134/58 127/56 122/57 O2 Sat by Pulse 100 100 100 Oximetry 08/25/18 08/25/18 08/25/18 07:00 08:00 08:33 Temperature 97.7 F Pulse Rate 63 63 65 Pulse Rate [ 64 From Monitor] Respiratory 12 13 Rate Blood Pressure 126/58 141/60 130/59 O2 Sat by Pulse 100 100 100 Oximetry 08/25/18 09:00 Temperature Pulse Rate 62 Pulse Rate [ From Monitor] Respiratory 12 Rate Blood Pressure 133/62 O2 Sat by Pulse 100 Oximetry - General Appearance General appearance: chronically ill, intubated, comatose EENT: ATNC, PERRL, mucous membranes moist Neck: no JVD Respiratory: Present: Clear to Ascultation Cardiology: regular, S1S2 Gastrointestinal: normoactive bowel sounds Integumentary: no rash, other (no edema ) Neurologic: other (unresponsive, on vent ) - Lab 08/25/18 04:55 08/25/18 04:55 Most recent lab results Calcium 8.1 mg/dL (8.4-10.2) L 08/25/18 04:55 Phosphorus 3.90 mg/dL (2.5-4.5) 08/15/18 04:05 Magnesium 2.20 mg/dL (1.7-2.3) 08/15/18 04:05 60.9 mg/dL (0.1-20.0) H 08/14/18 17:20 32 mmol/L 08/14/18 17:20 64 mg/dL (5-11.8) H 08/14/18 17:20 Medications & Allergies - Medications Allergies/Adverse Reactions: Allergies No Known Allergies Allergy (Verified 08/12/18 21:47) Home Medications: Home Medications Medication Instructions Recorded Confirmed Last Taken Type Acetaminophen TAB 2 1000units FEEDTUBE Q6HR PRN 08/18/18 08/18/18 Unknown History Amantadine [Symmetrel] 100 mg FEEDTUBE DAILY 08/18/18 08/18/18 08/13/18 History Amlodipine Besylate [Norvasc] 5 mg FEEDTUBE DAILY 08/18/18 08/18/18 08/13/18 History Ascorbic Acid [Vitamin C Oral Liq] 500 mg FEEDTUBE QDAY 08/18/18 08/18/18 08/13/18 History Ascorbic Acid [Vitamin C with Fiordaliza 1 tab FEEDTUBE DAILY 08/18/18 08/18/18 Unknown History Hips] Aspirin BABY CHEW TAB 1 tab FEEDTUBE DAILY 08/18/18 08/18/18 Unknown History Aspirin BABY CHEW TAB 81 mg FEEDTUBE DAILY 08/18/18 08/18/18 08/13/18 History Atorvastatin Calcium [Lipitor] 40 mg FEEDTUBE DAILY 08/18/18 08/18/18 08/13/18 History Benazepril HCl 10 mg FEEDTUBE DAILY 08/18/18 08/18/18 08/13/18 History Bisacodyl [Dulcolax suppos] 10 mg TX QDAY PRN 08/18/18 08/18/18 Unknown History Docusate Sodium [Colace ORAL LIQ] 100 mg FEEDTUBE QDAY PRN 08/18/18 08/18/18 Unknown History Ferrous Sulfate [Ferrous Sulfate 7.5 ml FEEDTUBE DAILY 08/18/18 08/18/18 08/13/18 History 220 MG/5 ML] Glycopyrrolate [Robinul] 2 mg FEEDTUBE Q8H 08/18/18 08/18/18 08/13/18 History Heparin Sod,Porcine/0.9 % NaCl 5,000 units SUB-Q Q8H 08/18/18 08/18/18 Unknown History [Heparin 5,000 Unit/5 ml-Ns] Insulin Glargine,Hum.rec.anlog 40 unit SQ HS 08/18/18 08/18/18 08/12/18 History [Basaglar Kwikpen U-100] Lacosamide [Vimpat] 1 tab FEEDTUBE Q12HR 08/18/18 08/18/18 Unknown History Lipitor 10 mg FEEDTUBE DAILY 08/18/18 08/18/18 Unknown History Mag-Al Plus Suspension 5 ml FEEDTUBE Q4HR PRN 08/18/18 08/19/18 Unknown History Melatonin 3 mg FEEDTUBE HS 08/18/18 08/18/18 Unknown History Sucralfate [Carafate] 1 gm FEEDTUBE Q8H 08/18/18 08/18/18 08/13/18 History Tamsulosin 0.4 mg FEEDTUBE DAILY 08/18/18 08/18/18 Unknown History guaiFENesin 200 mg FEEDTUBE Q4H PRN 08/18/18 08/18/18 Unknown History Active Medications: Generic Name Dose Route Start Last Admin Trade Name Freq PRN Reason Stop Dose Admin Acetaminophen 650 mg 08/13/18 11:40 08/13/18 16:09 Tylenol PO 650 mg Q6H PRN Administration Fever >101 Lipase/Protease/Amylase 1 each 08/13/18 15:[address] 10,500 Unit FEEDTUBE PRN PRN For Clogged Feeding Tube Aspirin 325 mg 08/17/18 10:00 08/24/18 10:50 Aspirin PO 325 mg QDAY LENCHO Administration Atorvastatin Calcium 40 mg 08/14/18 22:00 08/24/18 21:31 Lipitor PO 40 mg QHS LENCHO Administration Dextrose 50 ml 08/13/18 01:34 D50w (25gm) Syringe IV PRN PRN Hypoglycemia Enoxaparin Sodium 40 mg 08/17/18 22:00 08/24/18 22:00 Lovenox SUB-Q Not Given QDAY@2200 [facility] Famotidine 20 mg 08/19/18 10:00 08/24/18 21:31 Pepcid PO 20 mg BID [facility] Administration Hydrophilic Ointment 1 applic 08/13/18 12:21 Vaseline Lip Therapy TP Q2HR PRN Dry Lips Fentanyl Citrate 2,000 mcg in 100 mls @ 3.629 mls/hr 08/14/18 13:00 Fentanyl Drip Premix IV TITR [facility] Protocol 1 MCG/KG/HR Insulin Glargine 44 units 08/25/18 08:00 Lantus SUB-Q QAMDIAB [facility] Insulin Human Lispro 0 unit 08/13/18 06:00 08/25/18 06:00 Humalog SUB-Q Not Given Q6HR [facility] Protocol Levetiracetam 1,000 mg 08/13/18 15:00 08/24/18 21:31 Keppra PO 1,000 mg BID [facility] Administration Magnesium Citrate 150 ml 08/25/18 18:00 Citrate Of Magnesia PO 08/25/18 18:01 NOW ONE Multi-Ingred Cream/Lotion/Oil/Oint 1 applic 08/13/18 12:21 08/17/18 00:41 Artificial Tears Ophth Oint OU 1 applic Q4HR PRN Administration Dry Eye(s) Ondansetron HCl 4 mg 08/13/18 01:34 Zofran IV Q8H PRN Nausea And Vomiting Simple Syrup 15 ml 08/13/18 15:55 Simple Syrup FEEDTUBE PRN PRN Hypoglycemia Simple Syrup 30 ml 08/13/18 15:55 Simple Syrup FEEDTUBE PRN PRN Hypoglycemia Sodium Bicarbonate 325 mg 08/13/18 15:55 Sodium Bicarbonate FEEDTUBE PRN PRN For Clogged Feeding Tube Sodium Chloride 10 ml 08/13/18 10:00 08/24/18 21:32 Sodium Chloride Flush Syringe 10 Ml IV 10 ml BID LENCHO Administration Sodium Chloride 10 ml 08/13/18 01:34 Sodium Chloride Flush Syringe 10 Ml IV PRN PRN LINE FLUSH
[2018-08-25] MEDS: SODIUM CHLORIDE FLUSH SYRINGE 10 ML IV SCH ×2 (10:30→21:10)
[2018-08-25] MEDS ORDERED: ZEMURON IV ONE (13:42)
[2018-08-25] MEDS ORDERED: XYLOCAINE MPF 2% ONE (13:42)
[2018-08-25] MEDS ORDERED: AMIDATE IV ONE (13:42)
--- NOTE | 2018-08-25 13:53 | Anesthesia Consultation ---
Anesthesia Consult and Med Hx Date of service: 08/25/18 - Airway Anesthetic Teeth Evaluation: Poor ROM Head & Neck: Adequate Mental/Hyoid Distance: Adequate Mallampati Class: Class II Intubation Access Assessment: Probably Good - Pre-Operative Health Status ASA Pre-Surgery Classification: ASA4 Proposed Anesthetic Plan: General - Pulmonary Hx Respiratory Symptoms: Yes (chronic respiratory failure) - Cardiovascular System Hx Hypertension: Yes Hx Pacemaker: No Hx Internal Defibrillator: No - Central Nervous System Hx Seizures: Yes (status epilepticus) CVA: Yes (right side weakness) Hx Psychiatric Problems: No - Endocrine Hx Non-Insulin Dependent Diabetes: Yes
--- NOTE | 2018-08-25 13:56 | Progress Note ---
Assessment and Plan Assessment and plan: Cardiopulmonary arrest x 3: Most likely related to mucus plugging >NSTEMI, lead ing to severe irreversible brain damage: supportive care, CCM following. Acute on chronic respiratory failure on mechanical ventilation >96 hours: Trach has been removed when patient was orally intubated, continue ventilator management per pulmonology. Tracheostomy is to be replaced today per surgery. Right pneumothorax, appears to be resolved: Status post chest tube, mgt per pulmonology Anoxic brain injury and status epilepticus poa: Patient was noted to be having seizures, he received Ativan and Keppra, neurology consult appreciated, poor prognosis, poor likelihood of recovery, check EEG per neurology recommendations. Hypernatremia/free water deficits, Continue free water via G-tube, sp hypotonic IV solution, monitor bmp closely Acute kidney injury likely due to ATN, poa: Nephrology following, continue IV fluid, avoid renal toxic agents NSTEMI: treated with IV heparin, asa, statin, no bblocker due to bradycardia, hypotension, Cardiology is following Severe protein calorie malnutrition: Dietitian consulted, continue tube feedings UTI/sepsis: Continue antibiotics, follow-up urine cultures-->no growth x 48 hours Type 2 dm with persistent hyperglycemia: cont insulins and adjust according, on tube feedings Anemia: s/p transfusion Urinary retention: continue douglass, condom cath DVT prophylaxis; patient is fully anticoagulated on heparin drip History Interval history: Patient is a 77 yo man from [facility] with a history of respiratory failure, CVA with tracheostomy and Gtube who presented to [facility] ED following cardiac arrest after being found unresponsive at the alf. Time down is unknown per records. The patient is on the vent and unresponsive, all history is obtained from the chart. Patient had multiple episodes of arrest/pulselessness. He has been on the vent since then without any improvement. Per ER notes the patient was bagged via tracheostomy which continued to have low tidal volumes and so the patient with orally intubated after which tidal volumes improved. I spoke with and daughter, Felicita and they believe that he aspirated with a mucus plug that caused the cardiopulmonary arrest not NSTEMI.. Initially, he went to [facility] may 05 to june 05, he had fluid on brain and multiple strokes per family and they drained the fluid off the brain. The trach was placed at [facility] and patient went to [facility], x 7 weeks (trach was changed where capped was placed), he was doing well, talking and sitting up. Then he went to [facility], August 03 and his oral care was horrible. The trach care was horrible and not enough suctioning done. Mouth with copious amount of crud. Then on August 12, Friday, he had voice changing and mucus p lugging. Followed by respiratory arrest. The [place] brain flow scan showed reduced blood flow. Patient had evaluation by neurology who reports patient with intact brainstem function. Hospitalist Physical - Constitutional Vitals: Temp Pulse Resp BP Pulse Ox 97.9 F 61 22 127/56 100 08/25/18 12:00 08/25/18 12:00 08/25/18 12:00 08/25/18 12:00 08/25/18 12:00 General appearance: Present: other (twitching, nonresponsive, intubated) - EENT Eyes: Present: PERRL, EOM intact ENT: hearing intact, clear oral mucosa, dentition normal - Neck Neck: Present: supple, normal ROM - Respiratory Respiratory effort: normal Respiratory: bilateral: CTA - Cardiovascular Rhythm: regular Heart Sounds: Present: S1 & S2. Absent: gallop, rub - Extremities Extremities: no ischemia, No edema, Full ROM - Abdominal General gastrointestinal: soft, non-tender, non-distended, normal bowel sounds - Integumentary Integumentary: Present: clear, warm, dry - Neurologic Neurologic: CNII-XII intact, moves all extremities Results - Labs CBC & Chem 7: 08/25/18 04:55 08/25/18 04:55 Labs: Laboratory Last Values WBC 7.1 K/mm3 (4.5-11.0) 08/25/18 04:55 RBC 2.94 M/mm3 (3.65-5.03) L 08/25/18 04:55 Hgb 8.4 gm/dl (11.8-15.2) L 08/25/18 04:55 Hct 25.1 % (35.5-45.6) L 08/25/18 04:55 MCV 85 fl (84-94) 08/25/18 04:55 MCH 29 pg (28-32) 08/25/18 04:55 MCHC 34 % (32-34) 08/25/18 04:55 RDW 18.2 % (13.2-15.2) H 08/25/18 04:55 Plt Count 331 K/mm3 (140-440) 08/25/18 04:55 Lymph % (Auto) 17.1 % (13.4-35.0) 08/24/18 01:00 [place] % (Auto) 9.2 % (0.0-7.3) H 08/24/18 01:00 Eos % (Auto) 2.6 % (0.0-4.3) 08/24/18 01:00 Baso % (Auto) 1.3 % (0.0-1.8) 08/24/18 01:00 Lymph # 1.4 K/mm3 (1.2-5.4) 08/24/18 01:00 [place] # 0.7 K/mm3 (0.0-0.8) 08/24/18 01:00 Eos # 0.2 K/mm3 (0.0-0.4) 08/24/18 01:00 Baso # 0.1 K/mm3 (0.0-0.1) 08/24/18 01:00 Add Manual Diff Complete 08/12/18 21:44 Total Counted 100 08/12/18 21:44 Seg Neutrophils % 69.8 % (40.0-70.0) 08/24/18 01:00 Seg Neuts % (Manual) 44.0 % (40.0-70.0) 08/12/18 21:44 0 % 08/12/18 21:44 48.0 % (13.4-35.0) H 08/12/18 21:44 Reactive Lymphs % (Man) 0 % 08/12/18 21:44 2.0 % (0.0-7.3) 08/12/18 21:44 1.0 % (0.0-4.3) 08/12/18 21:44 0 % (0.0-1.8) 08/12/18 21:44 1.0 % 08/12/18 21:44 4.0 % 08/12/18 21:44 0 % 08/12/18 21:44 0 % 08/12/18 21:44 Nucleated RBC % Not Reportable 08/12/18 21:44 Seg Neutrophils # 5.6 K/mm3 (1.8-7.7) 08/24/18 01:00 Seg Neutrophils # Man 6.8 K/mm3 (1.8-7.7) 08/12/18 21:44 Band Neutrophils # 0.0 K/mm3 08/12/18 21:44 7.4 K/mm3 (1.2-5.4) H 08/12/18 21:44 Abs React Lymphs (Man) 0.0 K/mm3 08/12/18 21:44 0.3 K/mm3 (0.0-0.8) 08/12/18 21:44 0.2 K/mm3 (0.0-0.4) 08/12/18 21:44 0.0 K/mm3 (0.0-0.1) 08/12/18 21:44 0.2 K/mm3 08/12/18 21:44 0.6 K/mm3 08/12/18 21:44 0.0 K/mm3 08/12/18 21:44 Blast Cells # 0.0 K/mm3 08/12/18 21:44 WBC Morphology Not Reportable 08/12/18 21:44 Hypersegmented Neuts Not Reportable 08/12/18 21:44 Hyposegmented Neuts Not Reportable 08/12/18 21:44 Hypogranular Neuts Not Reportable 08/12/18 21:44 Not Reportable 08/12/18 21:44 Not Reportable 08/12/18 21:44 Not Reportable 08/12/18 21:44 Not Reportable 08/12/18 21:44 Not Reportable 08/12/18 21:44 Not Reportable 08/12/18 21:44 Consistent w auto 08/12/18 21:44 Not Reportable 08/12/18 21:44 Plt Clumps, EDTA Not Reportable 08/12/18 21:44 Not Reportable 08/12/18 21:44 Not Reportable 08/12/18 21:44 Not Reportable 08/12/18 21:44 Plt Morphology Comment Not Reportable 08/12/18 21:44 RBC Morphology Not Reportable 08/12/18 21:44 Dimorphic RBCs Not Reportable 08/12/18 21:44 Not Reportable 08/12/18 21:44 Not Reportable 08/12/18 21:44 Not Reportable 08/12/18 21:44 Few 08/12/18 21:44 Not Reportable 08/12/18 21:44 Not Reportable 08/12/18 21:44 Not Reportable 08/12/18 21:44 Not Reportable 08/12/18 21:44 Not Reportable 08/12/18 21:44 Not Reportable 08/12/18 21:44 Not Reportable 08/12/18 21:44 Few 08/12/18 21:44 Not Reportable 08/12/18 21:44 Not Reportable 08/12/18 21:44 Not Reportable 08/12/18 21:44 Not Reportable 08/12/18 21:44 Not Reportable 08/12/18 21:44 Not Reportable 08/12/18 21:44 Few 08/12/18 21:44 Acanthocytes (Spur) Not Reportable 08/12/18 21:44 Rouleaux Not Reportable 08/12/18 21:44 Not Reportable 08/12/18 21:44 Not Reportable 08/12/18 21:44 Not Reportable 08/12/18 21:44 Not Reportable 08/12/18 21:44 Hem Pathologist Commnt No 08/12/18 21:44 PT 16.5 Sec. (12.2-14.9) H 08/13/18 00:47 INR 1.25 (0.87-1.13) H 08/13/18 00:47 APTT 79.0 Sec. (24.2-36.6) H* 08/15/18 06:35 2742.50 ng/mlDDU (0-234) H 08/13/18 20:07 Heparin Anti-Xa Level 0.26 U.I./ml (0.3-0.7) L 08/16/18 20:01 POC ABG pH 7.427 (7.35-7.45) 08/24/18 00:10 POC ABG pCO2 35.5 (35-45) 08/24/18 00:10 POC ABG pO2 91 (80-105) 08/24/18 00:10 POC ABG HCO3 23.4 (22-26 mml/L) 08/24/18 00:10 POC ABG Total CO2 24 (23-27mmol/L) 08/24/18 00:10 POC ABG O2 Sat 97 08/24/18 00:10 POC ABG Base Excess -1 ((-2) - (+3)mmol/L) 08/24/18 00:10 24 % 08/24/18 00:10 Sodium 145 mmol/L (137-145) 08/25/18 04:55 Potassium 3.8 mmol/L (3.6-5.0) 08/25/18 04:55 Chloride 110.2 mmol/L (98-107) H 08/25/18 04:55 Carbon Dioxide 24 mmol/L (22-30) 08/25/18 04:55 15 mmol/L 08/25/18 04:55 BUN 30 mg/dL (9-20) H 08/25/18 04:55 0.9 mg/dL (0.8-1.5) 08/25/18 04:55 Estimated GFR > 60 ml/min 08/25/18 04:55 33 % 08/25/18 04:55 Glucose 80 mg/dL (75-100) 08/25/18 04:55 POC Glucose 75 (70-105) 08/25/18 11:50 Lactic Acid 2.80 mmol/L (0.7-2.0) H* 08/13/18 12:53 Calcium 8.1 mg/dL (8.4-10.2) L 08/25/18 04:55 Phosphorus 3.90 mg/dL (2.5-4.5) 08/15/18 04:05 Magnesium 2.20 mg/dL (1.7-2.3) 08/15/18 04:05 0.30 mg/dL (0.1-1.2) 08/14/18 04:03 AST 50 units/L (5-40) H 08/14/18 04:03 ALT 55 units/L (7-56) 08/14/18 04:03 219 units/L (35-129) H 08/14/18 04:03 309 units/L (55-170) H 08/13/18 10:10 CK-MB (CK-2) 4.1 ng/mL (0.0-4.0) H 08/13/18 10:10 CK-MB (CK-2) Rel Index 1.3 (0-4) 08/13/18 10:10 0.409 ng/mL (0.00-0.029) H* 08/14/18 04:03 16.90 mg/dL (0.00-1.30) H 08/13/18 12:53 6.2 g/dL (6.3-8.2) L 08/14/18 04:03 1.9 g/dL (3.9-5) L 08/14/18 04:03 0.4 % 08/14/18 04:03 Triglycerides 62 mg/dL (2-149) 08/13/18 00:32 Cholesterol 46 mg/dL (50-199) L 08/13/18 00:32 17 mg/dL (50-130) L 08/13/18 00:32 6 mg/dL (40-59) L 08/13/18 00:32 7.66 % 08/13/18 00:32 Yellow (Yellow) 08/13/18 00:50 Cloudy (Clear) 08/13/18 00:50 7.0 (5.0-7.0) 08/13/18 00:50 Ur Specific [place] 1.025 (1.003-1.030) 08/13/18 00:50 100 mg/dl mg/dL (Negative) 08/13/18 00:50 50 mg/dL (Negative) 08/13/18 00:50 Tr mg/dL (Negative) 08/13/18 00:50 Mod (Negative) 08/13/18 00:50 Neg (Negative) 08/13/18 00:50 Neg (Negative) 08/13/18 00:50 < 2.0 mg/dL (<2.0) 08/13/18 00:50 Ur Leukocyte Esterase Mod (Negative) 08/13/18 00:50 > 182.0 /HPF (0.0-6.0) H 08/13/18 00:50 > 182.0 /HPF (0.0-6.0) 08/13/18 00:50 2+ /HPF (Negative) 08/13/18 00:50 3+ /HPF 08/13/18 00:50 None seen (None Seen) 08/14/18 17:20 60.9 mg/dL (0.1-20.0) H 08/14/18 17:20 32 mmol/L 08/14/18 17:20 64 mg/dL (5-11.8) H 08/14/18 17:20 Presumptive negative 08/12/18 21:30 Presumptive negative 08/12/18 21:30 Ur Barbiturates Screen Presumptive negative 08/12/18 21:30 Ur Phencyclidine Scrn Presumptive negative 08/12/18 21:30 Ur Amphetamines Screen Presumptive negative 08/12/18 21:30 U Benzodiazepines Scrn Presumptive negative 08/12/18 21:30 Presumptive negative 08/12/18 21:30 U Marijuana (THC) Screen Presumptive negative 08/12/18 21:30 Disclamer 08/12/18 21:30 Blood Type O POSITIVE 08/15/18 15:31 Antibody Screen Negative 08/15/18 15:31 Crossmatch See Detail 08/15/18 15:31 Active Medications - Current Medications Current Medications: Generic Name Dose Route Start Last Admin Trade Name Freq PRN Reason Stop Dose Admin Acetaminophen 650 mg 08/13/18 11:40 08/13/18 16:09 Tylenol PO 650 mg Q6H PRN Administration Fever >101 Lipase/Protease/Amylase 1 each 08/13/18 15:[address] 10,500 Unit FEEDTUBE PRN PRN For Clogged Feeding Tube Aspirin 325 mg 08/17/18 10:00 08/24/18 10:50 Aspirin PO 325 mg QDAY LENCHO Administration Atorvastatin Calcium 40 mg 08/14/18 22:00 08/24/18 21:31 Lipitor PO 40 mg QHS LENCHO Administration Dextrose 50 ml 08/13/18 01:34 D50w (25gm) Syringe IV PRN PRN Hypoglycemia Enoxaparin Sodium 40 mg 08/17/18 22:00 08/24/18 22:00 Lovenox SUB-Q Not Given QDAY@2200 LENCHO Famotidine 20 mg 08/19/18 10:00 08/24/18 21:31 Pepcid PO 20 mg BID LENCHO Administration Hydrophilic Ointment 1 applic 08/13/18 12:21 Vaseline Lip Therapy TP Q2HR PRN Dry Lips Fentanyl Citrate 2,000 mcg in 100 mls @ 3.629 mls/hr 08/14/18 13:00 Fentanyl Drip Premix IV TITR LENCHO Protocol 1 MCG/KG/HR Insulin Glargine 44 units 08/25/18 08:00 Lantus SUB-Q QAMDIAB [facility] Insulin Human Lispro 0 unit 08/13/18 06:00 08/25/18 12:19 Humalog SUB-Q Not Given Q6HR [facility] Protocol Levetiracetam 1,000 mg 08/13/18 15:00 08/24/18 21:31 Keppra PO 1,000 mg BID LENCHO Administration Magnesium Citrate 150 ml 08/25/18 18:00 Citrate Of Magnesia PO 08/25/18 18:01 NOW ONE Multi-Ingred Cream/Lotion/Oil/Oint 1 applic 08/13/18 12:21 08/17/18 00:41 Artificial Tears Ophth Oint OU 1 applic Q4HR PRN Administration Dry Eye(s) Ondansetron HCl 4 mg 08/13/18 01:34 Zofran IV Q8H PRN Nausea And Vomiting Simple Syrup 15 ml 08/13/18 15:55 Simple Syrup FEEDTUBE PRN PRN Hypoglycemia Simple Syrup 30 ml 08/13/18 15:55 Simple Syrup FEEDTUBE PRN PRN Hypoglycemia Sodium Bicarbonate 325 mg 08/13/18 15:55 Sodium Bicarbonate FEEDTUBE PRN PRN For Clogged Feeding Tube Sodium Chloride 10 ml 08/13/18 10:00 08/24/18 21:32 Sodium Chloride Flush Syringe 10 Ml IV 10 ml BID LENCHO Administration Sodium Chloride 10 ml 08/13/18 01:34 Sodium Chloride Flush Syringe 10 Ml IV PRN PRN LINE FLUSH Nutrition/Malnutrition Assess - Dietary Evaluation Nutrition/Malnutrition Findings: Nutrition Notes Start: 08/13/18 15:41 Freq: Status: Active Protocol: Document 08/25/18 09:31 LP (Rec: 08/25/18 09:33 LP [id number]) Nutrition Notes Initial or Follow up Reassessment Current Diagnosis Acute Kidney Injury,Diabetes Other Pertinent Diagnosis UTI, Hx CVA, PEG, Sacral PU, Multiple PU, Anoxic brain injury,R pneumothorax Current Diet Vital 1.2 at 60 ml/hr Labs/Tests Reviewed Pertinent Medications Reviewed Height 5 ft 8 in Weight 79.6 kg [place] Body Weight (kg) 70.00 BMI 26.6 Subjective/Other Information TF is off due to trach placement. Burn Absent Trauma Absent #1 Nutrition Diagnosis Inadequate oral intake Diagnosis Progress(for reassessment Continues documentation) Is patient on ventilator? Yes Is Patient Ambulatory and/or Out of Bed No REE-([facility]-confined to bed) [phone] Calculation Used for Recommendations [facility] Additional Notes Protein Needs: 87-145g (1.2-2g /kg) Fluid Needs: 1 ml/kcal Nutrition Intervention Change Diet Order: TF Nutrition Support: Vital 1.2 at 60 ml/hr. Water flush of 100 mls q 4 hrs . Kcal 1,728 Protein (gm) 108 Fluid (mL) 1,167 Add Supplement/Snack (indicate name/kcal Magen BID /protein ) Provides kCal: 190 Provides Protein (gm) 5 Goal #1 meet at least 80% of calorie and protein needs via TF once trach is placed Anticipated Discharge Needs: TF Follow-Up By: 08/27/18 Additional Comments Follow for TF restart/ tolerance
--- NOTE | 2018-08-25 13:56 | Anesthesia Day of Surgery ---
Anesthesia Day of Surgery - Day of Surgery Patient Examined: Yes Patient H&P Reviewed: Yes Patient is NPO: Yes
[2018-08-25] MEDS ORDERED: NACL 0.9% 1000 ML 1,000 ML IV SCH (14:00)
--- NOTE | 2018-08-25 14:06 | Consultation ---
Past History Past Medical History: diabetes, hypertension, hyperlipidemia, seizures, stroke Past Surgical History: Other (trach and PEG) Social history: other (at longterm). denies: smoking, alcohol abuse, prescription drug abuse, IV drug use Family history: hypertension Medications and Allergies Allergies Allergy/AdvReac Type Severity Reaction Status Date / Time No Known Allergies Allergy Verified 08/12/18 21:47 Home Medications Medication Instructions Recorded Confirmed Last Taken Type Acetaminophen TAB 2 1000units FEEDTUBE Q6HR PRN 08/18/18 08/18/18 Unknown History Amantadine [Symmetrel] 100 mg FEEDTUBE DAILY 08/18/18 08/18/18 08/13/18 History Amlodipine Besylate [Norvasc] 5 mg FEEDTUBE DAILY 08/18/18 08/18/18 08/13/18 History Ascorbic Acid [Vitamin C Oral Liq] 500 mg FEEDTUBE QDAY 08/18/18 08/18/18 08/13/18 History Ascorbic Acid [Vitamin C with Fiordaliza 1 tab FEEDTUBE DAILY 08/18/18 08/18/18 Unknown History Hips] Aspirin BABY CHEW TAB 1 tab FEEDTUBE DAILY 08/18/18 08/18/18 Unknown History Aspirin BABY CHEW TAB 81 mg FEEDTUBE DAILY 08/18/18 08/18/18 08/13/18 History Atorvastatin Calcium [Lipitor] 40 mg FEEDTUBE DAILY 08/18/18 08/18/18 08/13/18 History Benazepril HCl 10 mg FEEDTUBE DAILY 08/18/18 08/18/18 08/13/18 History Bisacodyl [Dulcolax suppos] 10 mg CO QDAY PRN 08/18/18 08/18/18 Unknown History Docusate Sodium [Colace ORAL LIQ] 100 mg FEEDTUBE QDAY PRN 08/18/18 08/18/18 Unknown History Ferrous Sulfate [Ferrous Sulfate 7.5 ml FEEDTUBE DAILY 08/18/18 08/18/18 08/13/18 History 220 MG/5 ML] Glycopyrrolate [Robinul] 2 mg FEEDTUBE Q8H 08/18/18 08/18/18 08/13/18 History Heparin Sod,Porcine/0.9 % NaCl 5,000 units SUB-Q Q8H 08/18/18 08/18/18 Unknown History [Heparin 5,000 Unit/5 ml-Ns] Insulin Glargine,Hum.rec.anlog 40 unit SQ HS 08/18/18 08/18/18 08/12/18 History [Basaglar Kwikpen U-100] Lacosamide [Vimpat] 1 tab FEEDTUBE Q12HR 08/18/18 08/18/18 Unknown History Lipitor 10 mg FEEDTUBE DAILY 08/18/18 08/18/18 Unknown History Mag-Al Plus Suspension 5 ml FEEDTUBE Q4HR PRN 08/18/18 08/19/18 Unknown History Melatonin 3 mg FEEDTUBE HS 08/18/18 08/18/18 Unknown History Sucralfate [Carafate] 1 gm FEEDTUBE Q8H 08/18/18 08/18/18 08/13/18 History Tamsulosin 0.4 mg FEEDTUBE DAILY 08/18/18 08/18/18 Unknown History guaiFENesin 200 mg FEEDTUBE Q4H PRN 08/18/18 08/18/18 Unknown History Active Meds: Active Medications Acetaminophen (Tylenol) 650 mg PO Q6H PRN PRN Reason: Fever >101 Last Admin: 08/13/18 16:09 Dose: 650 mg Documented by: Lipase/Protease/Amylase ([place] Dr 10,500 Unit) 1 each FEEDTUBE PRN PRN PRN Reason: For Clogged Feeding Tube Aspirin (Aspirin) 325 mg PO QDAY [facility] Last Admin: 08/24/18 10:50 Dose: 325 mg Documented by: Atorvastatin Calcium (Lipitor) 40 mg PO QHS [facility] Last Admin: 08/24/18 21:31 Dose: 40 mg Documented by: Dextrose (D50w (25gm) Syringe) 50 ml IV PRN PRN PRN Reason: Hypoglycemia Enoxaparin Sodium (Lovenox) 40 mg SUB-Q QDAY@2200 [facility] Last Admin: 08/24/18 22:00 Dose: Not Given Documented by: Famotidine (Pepcid) 20 mg PO BID [facility] Last Admin: 08/24/18 21:31 Dose: 20 mg Documented by: Hydrophilic Ointment (Vaseline Lip Therapy) 1 applic TP Q2HR PRN PRN Reason: Dry Lips Fentanyl Citrate (Fentanyl Drip Premix) 2,000 mcg in 100 mls @ 3.629 mls/hr IV TITR [facility]; Protocol Insulin Glargine (Lantus) 44 units SUB-Q QAMDIAB LENCHO Insulin Human Lispro (Humalog) 0 unit SUB-Q Q6HR [facility]; Protocol Last Admin: 08/25/18 12:19 Dose: Not Given Documented by: Levetiracetam (Keppra) 1,000 mg PO BID [facility] Last Admin: 08/24/18 21:31 Dose: 1,000 mg Documented by: Magnesium Citrate (Citrate Of Magnesia) 150 ml PO NOW ONE Stop: 08/25/18 18:01 Multi-Ingred Cream/Lotion/Oil/Oint (Artificial Tears Ophth Oint) 1 applic OU Q4HR PRN PRN Reason: Dry Eye(s) Last Admin: 08/17/18 00:41 Dose: 1 applic Documented by: Ondansetron HCl (Zofran) 4 mg IV Q8H PRN PRN Reason: Nausea And Vomiting Simple Syrup (Simple Syrup) 15 ml FEEDTUBE PRN PRN PRN Reason: Hypoglycemia Simple Syrup (Simple Syrup) 30 ml FEEDTUBE PRN PRN PRN Reason: Hypoglycemia Sodium Bicarbonate (Sodium Bicarbonate) 325 mg FEEDTUBE PRN PRN PRN Reason: For Clogged Feeding Tube Sodium Chloride (Sodium Chloride Flush Syringe 10 Ml) 10 ml IV BID [facility] Last Admin: 08/24/18 21:32 Dose: 10 ml Documented by: Sodium Chloride (Sodium Chloride Flush Syringe 10 Ml) 10 ml IV PRN PRN PRN Reason: LINE FLUSH Physical Examination - Vital Signs Vital Signs: Vital Signs Pulse Ox 100 08/12/18 21:02 Results - Laboratory Findings CBC and BMP: 08/25/18 04:55 08/25/18 04:55 Abnormal Lab Findings: Abnormal Labs 08/12/18 08/12/18 08/12/18 21:44 21:44 21:44 WBC 15.5 H RBC 3.12 L Hgb 8.8 L Hct 28.9 L MCHC 31 L RDW 19.5 H [place] % (Auto) [place] # Seg Neutrophils % Lymphocytes % (Manual) 48.0 H Seg Neutrophils # Lymphocytes # (Manual) 7.4 H PT 17.8 H INR 1.37 H APTT D-Dimer Heparin Anti-Xa Level POC ABG pH POC ABG pCO2 POC ABG pO2 Sodium 159 H Potassium Chloride 118.5 H Carbon Dioxide BUN 34 H Creatinine Glucose 161 H POC Glucose Lactic Acid Calcium Magnesium AST Alkaline Phosphatase Total Creatine Kinase CK-MB (CK-2) Troponin T 0.105 H* C-Reactive Protein Total Protein Albumin Cholesterol LDL Cholesterol Direct HDL Cholesterol Urine WBC (Auto) Urine Creatinine Urine Total Protein Crossmatch 08/13/18 08/13/18 08/13/18 00:32 00:47 00:47 WBC RBC Hgb 9.2 L Hct 29.6 L MCHC RDW [place] % (Auto) [place] # Seg Neutrophils % Lymphocytes % (Manual) Seg Neutrophils # Lymphocytes # (Manual) PT 16.5 H INR 1.25 H APTT 37.3 H D-Dimer Heparin Anti-Xa Level POC ABG pH POC ABG pCO2 POC ABG pO2 Sodium Potassium Chloride Carbon Dioxide BUN Creatinine Glucose POC Glucose Lactic Acid Calcium Magnesium AST Alkaline Phosphatase Total Creatine Kinase 211 H CK-MB (CK-2) 7.7 H Troponin T 0.169 H* D C-Reactive Protein Total Protein Albumin Cholesterol 46 L LDL Cholesterol Direct 17 L HDL Cholesterol 6 L Urine WBC (Auto) Urine Creatinine Urine Total Protein Crossmatch 08/13/18 08/13/18 08/13/18 00:50 02:25 05:34 WBC RBC Hgb Hct MCHC RDW [place] % (Auto) [place] # Seg Neutrophils % Lymphocytes % (Manual) Seg Neutrophils # Lymphocytes # (Manual) PT INR APTT D-Dimer Heparin Anti-Xa Level POC ABG pH 7.503 H POC ABG pCO2 POC ABG pO2 253 H Sodium Potassium Chloride Carbon Dioxide BUN Creatinine Glucose POC Glucose Lactic Acid Calcium Magnesium AST Alkaline Phosphatase Total Creatine Kinase 311 H CK-MB (CK-2) 10.4 H Troponin T 0.283 H* D C-Reactive Protein Total Protein Albumin Cholesterol LDL Cholesterol Direct HDL Cholesterol Urine WBC (Auto) > 182.0 H Urine Creatinine Urine Total Protein Crossmatch 08/13/18 08/13/18 08/13/18 06:35 10:10 10:10 WBC RBC Hgb Hct MCHC RDW [place] % (Auto) [place] # Seg Neutrophils % Lymphocytes % (Manual) Seg Neutrophils # Lymphocytes # (Manual) PT INR APTT D-Dimer Heparin Anti-Xa Level POC ABG pH 7.554 H POC ABG pCO2 33.5 L POC ABG pO2 220 H Sodium 158 H Potassium Chloride 117.1 H Carbon Dioxide BUN 53 H Creatinine 2.0 H Glucose 247 H POC Glucose Lactic Acid Calcium 8.2 L Magnesium AST Alkaline Phosphatase Total Creatine Kinase 309 H CK-MB (CK-2) 4.1 H Troponin T 0.470 H* D C-Reactive Protein Total Protein Albumin Cholesterol LDL Cholesterol Direct HDL Cholesterol Urine WBC (Auto) Urine Creatinine Urine Total Protein Crossmatch 08/13/18 08/13/18 08/13/18 12:53 12:53 17:55 WBC RBC Hgb Hct MCHC RDW [place] % (Auto) [place] # Seg Neutrophils % Lymphocytes % (Manual) Seg Neutrophils # Lymphocytes # (Manual) PT INR APTT D-Dimer Heparin Anti-Xa Level POC ABG pH POC ABG pCO2 POC ABG pO2 Sodium Potassium Chloride Carbon Dioxide BUN Creatinine Glucose POC Glucose 308 H Lactic Acid 2.80 H* Calcium Magnesium 2.50 H AST Alkaline Phosphatase Total Creatine Kinase CK-MB (CK-2) Troponin T C-Reactive Protein 16.90 H Total Protein Albumin Cholesterol LDL Cholesterol Direct HDL Cholesterol Urine WBC (Auto) Urine Creatinine Urine Total Protein Crossmatch 08/13/18 08/13/18 08/13/18 20:07 21:16 23:17 WBC RBC Hgb Hct MCHC RDW [place] % (Auto) [place] # Seg Neutrophils % Lymphocytes % (Manual) Seg Neutrophils # Lymphocytes # (Manual) PT INR APTT D-Dimer 2742.50 H Heparin Anti-Xa Level POC ABG pH 7.483 H POC ABG pCO2 30.8 L POC ABG pO2 150 H Sodium Potassium Chloride Carbon Dioxide BUN Creatinine Glucose POC Glucose 245 H Lactic Acid Calcium Magnesium AST Alkaline Phosphatase Total Creatine Kinase CK-MB (CK-2) Troponin T C-Reactive Protein Total Protein Albumin Cholesterol LDL Cholesterol Direct HDL Cholesterol Urine WBC (Auto) Urine Creatinine Urine Total Protein Crossmatch 08/14/18 08/14/18 08/14/18 04:03 04:03 04:56 WBC 18.2 H RBC 2.62 L Hgb 7.3 L Hct 24.5 L MCHC RDW 18.9 H [place] % (Auto) [place] # 1.2 H Seg Neutrophils % 79.4 H Lymphocytes % (Manual) Seg Neutrophils # 14.5 H Lymphocytes # (Manual) PT INR APTT D-Dimer Heparin Anti-Xa Level POC ABG pH POC ABG pCO2 33.5 L POC ABG pO2 153 H Sodium 152 H Potassium 3.4 L Chloride 113.8 H Carbon Dioxide BUN 72 H Creatinine 2.7 H Glucose 239 H POC Glucose Lactic Acid Calcium 7.6 L Magnesium AST 50 H Alkaline Phosphatase 219 H Total Creatine Kinase CK-MB (CK-2) Troponin T 0.409 H* C-Reactive Protein Total Protein 6.2 L Albumin 1.9 L Cholesterol LDL Cholesterol Direct HDL Cholesterol Urine WBC (Auto) Urine Creatinine Urine Total Protein Crossmatch 08/14/18 08/14/18 08/14/18 05:18 13:38 15:35 WBC RBC Hgb Hct MCHC RDW [place] % (Auto) [place] # Seg Neutrophils % Lymphocytes % (Manual) Seg Neutrophils # Lymphocytes # (Manual) PT INR APTT D-Dimer Heparin Anti-Xa Level POC ABG pH POC ABG pCO2 POC ABG pO2 Sodium 150 H Potassium 3.2 L Chloride 114.5 H Carbon Dioxide BUN 69 H Creatinine 2.3 H Glucose 247 H POC Glucose 242 H 296 H Lactic Acid Calcium 7.2 L Magnesium AST Alkaline Phosphatase Total Creatine Kinase CK-MB (CK-2) Troponin T C-Reactive Protein Total Protein Albumin Cholesterol LDL Cholesterol Direct HDL Cholesterol Urine WBC (Auto) Urine Creatinine Urine Total Protein Crossmatch 08/14/18 08/14/18 08/14/18 17:01 17:20 23:47 WBC RBC Hgb Hct MCHC RDW [place] % (Auto) [place] # Seg Neutrophils % Lymphocytes % (Manual) Seg Neutrophils # Lymphocytes # (Manual) PT INR APTT D-Dimer Heparin Anti-Xa Level POC ABG pH POC ABG pCO2 POC ABG pO2 Sodium Potassium Chloride Carbon Dioxide BUN Creatinine Glucose POC Glucose 261 H 280 H Lactic Acid Calcium Magnesium AST Alkaline Phosphatase Total Creatine Kinase CK-MB (CK-2) Troponin T C-Reactive Protein Total Protein Albumin Cholesterol LDL Cholesterol Direct HDL Cholesterol Urine WBC (Auto) Urine Creatinine 60.9 H Urine Total Protein 64 H Crossmatch 08/15/18 08/15/18 08/15/18 04:05 04:05 04:05 WBC RBC Hgb 6.3 L Hct 19.7 L* MCHC RDW [place] % (Auto) [place] # Seg Neutrophils % Lymphocytes % (Manual) Seg Neutrophils # Lymphocytes # (Manual) PT INR APTT D-Dimer Heparin Anti-Xa Level 0.17 L POC ABG pH POC ABG pCO2 POC ABG pO2 Sodium 146 H Potassium 3.0 L Chloride 110.6 H Carbon Dioxide BUN 64 H Creatinine 2.2 H Glucose 231 H POC Glucose Lactic Acid Calcium 7.1 L Magnesium AST Alkaline Phosphatase Total Creatine Kinase CK-MB (CK-2) Troponin T C-Reactive Protein Total Protein Albumin Cholesterol LDL Cholesterol Direct HDL Cholesterol Urine WBC (Auto) Urine Creatinine Urine Total Protein Crossmatch 08/15/18 08/15/18 08/15/18 05:21 05:26 06:35 WBC RBC Hgb Hct MCHC RDW [place] % (Auto) [place] # Seg Neutrophils % Lymphocytes % (Manual) Seg Neutrophils # Lymphocytes # (Manual) PT INR APTT 79.0 H* D-Dimer Heparin Anti-Xa Level POC ABG pH 7.494 H POC ABG pCO2 POC ABG pO2 155 H Sodium Potassium Chloride Carbon Dioxide BUN Creatinine Glucose POC Glucose 271 H Lactic Acid Calcium Magnesium AST Alkaline Phosphatase Total Creatine Kinase CK-MB (CK-2) Troponin T C-Reactive Protein Total Protein Albumin Cholesterol LDL Cholesterol Direct HDL Cholesterol Urine WBC (Auto) Urine Creatinine Urine Total Protein Crossmatch 08/15/18 08/15/18 08/15/18 12:10 15:31 17:27 WBC RBC Hgb Hct MCHC RDW [place] % (Auto) [place] # Seg Neutrophils % Lymphocytes % (Manual) Seg Neutrophils # Lymphocytes # (Manual) PT INR APTT D-Dimer Heparin Anti-Xa Level POC ABG pH POC ABG pCO2 POC ABG pO2 Sodium Potassium Chloride Carbon Dioxide BUN Creatinine Glucose POC Glucose 301 H 287 H Lactic Acid Calcium Magnesium AST Alkaline Phosphatase Total Creatine Kinase CK-MB (CK-2) Troponin T C-Reactive Protein Total Protein Albumin Cholesterol LDL Cholesterol Direct HDL Cholesterol Urine WBC (Auto) Urine Creatinine Urine Total Protein Crossmatch See Detail 08/15/18 08/15/18 08/16/18 21:41 23:45 04:13 WBC RBC Hgb Hct MCHC RDW [place] % (Auto) [place] # Seg Neutrophils % Lymphocytes % (Manual) Seg Neutrophils # Lymphocytes # (Manual) PT INR APTT D-Dimer Heparin Anti-Xa Level 0.19 L POC ABG pH POC ABG pCO2 32.1 L POC ABG pO2 107 H Sodium Potassium Chloride Carbon Dioxide BUN Creatinine Glucose POC Glucose 163 H Lactic Acid Calcium Magnesium AST Alkaline Phosphatase Total Creatine Kinase CK-MB (CK-2) Troponin T C-Reactive Protein Total Protein Albumin Cholesterol LDL Cholesterol Direct HDL Cholesterol Urine WBC (Auto) Urine Creatinine Urine Total Protein Crossmatch 08/16/18 08/16/18 08/16/18 04:50 05:28 11:30 WBC RBC 2.67 L Hgb 8.1 L Hct 23.4 L MCHC 35 H RDW 18.3 H [place] % (Auto) [place] # Seg Neutrophils % Lymphocytes % (Manual) Seg Neutrophils # Lymphocytes # (Manual) PT INR APTT D-Dimer Heparin Anti-Xa Level 0.19 L POC ABG pH POC ABG pCO2 POC ABG pO2 Sodium Potassium Chloride Carbon Dioxide BUN Creatinine Glucose POC Glucose 141 H Lactic Acid Calcium Magnesium AST Alkaline Phosphatase Total Creatine Kinase CK-MB (CK-2) Troponin T C-Reactive Protein Total Protein Albumin Cholesterol LDL Cholesterol Direct HDL Cholesterol Urine WBC (Auto) Urine Creatinine Urine Total Protein Crossmatch 08/16/18 08/16/18 08/16/18 11:30 12:00 12:01 WBC RBC Hgb Hct MCHC RDW [place] % (Auto) [place] # Seg Neutrophils % Lymphocytes % (Manual) Seg Neutrophils # Lymphocytes # (Manual) PT INR APTT D-Dimer Heparin Anti-Xa Level 0.15 L POC ABG pH POC ABG pCO2 POC ABG pO2 Sodium Potassium Chloride 107.8 H Carbon Dioxide 21 L BUN 47 H Creatinine 1.6 H Glucose 221 H POC Glucose 267 H Lactic Acid Calcium 6.9 L Magnesium AST Alkaline Phosphatase Total Creatine Kinase CK-MB (CK-2) Troponin T C-Reactive Protein Total Protein Albumin Cholesterol LDL Cholesterol Direct HDL Cholesterol Urine WBC (Auto) Urine Creatinine Urine Total Protein Crossmatch 08/16/18 08/16/18 08/16/18 17:23 20:01 23:13 WBC RBC Hgb Hct MCHC RDW [place] % (Auto) [place] # Seg Neutrophils % Lymphocytes % (Manual) Seg Neutrophils # Lymphocytes # (Manual) PT INR APTT D-Dimer Heparin Anti-Xa Level 0.26 L POC ABG pH POC ABG pCO2 POC ABG pO2 Sodium Potassium Chloride Carbon Dioxide BUN Creatinine Glucose POC Glucose 245 H 256 H Lactic Acid Calcium Magnesium AST Alkaline Phosphatase Total Creatine Kinase CK-MB (CK-2) Troponin T C-Reactive Protein Total Protein Albumin Cholesterol LDL Cholesterol Direct HDL Cholesterol Urine WBC (Auto) Urine Creatinine Urine Total Protein Crossmatch 08/17/18 08/17/18 08/17/18 04:29 04:55 05:34 WBC RBC Hgb 8.2 L Hct 24.3 L MCHC RDW [place] % (Auto) [place] # Seg Neutrophils % Lymphocytes % (Manual) Seg Neutrophils # Lymphocytes # (Manual) PT INR APTT D-Dimer Heparin Anti-Xa Level POC ABG pH POC ABG pCO2 32.4 L POC ABG pO2 108 H Sodium Potassium Chloride Carbon Dioxide BUN Creatinine Glucose POC Glucose 268 H Lactic Acid Calcium Magnesium AST Alkaline Phosphatase Total Creatine Kinase CK-MB (CK-2) Troponin T C-Reactive Protein Total Protein Albumin Cholesterol LDL Cholesterol Direct HDL Cholesterol Urine WBC (Auto) Urine Creatinine Urine Total Protein Crossmatch 08/17/18 08/17/18 08/17/18 11:54 13:44 17:24 WBC RBC Hgb Hct MCHC RDW [place] % (Auto) [place] # Seg Neutrophils % Lymphocytes % (Manual) Seg Neutrophils # Lymphocytes # (Manual) PT INR APTT D-Dimer Heparin Anti-Xa Level POC ABG pH POC ABG pCO2 32.7 L POC ABG pO2 142 H Sodium Potassium Chloride Carbon Dioxide BUN Creatinine Glucose POC Glucose 295 H 283 H Lactic Acid Calcium Magnesium AST Alkaline Phosphatase Total Creatine Kinase CK-MB (CK-2) Troponin T C-Reactive Protein Total Protein Albumin Cholesterol LDL Cholesterol Direct HDL Cholesterol Urine WBC (Auto) Urine Creatinine Urine Total Protein Crossmatch 08/18/18 08/18/18 08/18/18 00:05 00:59 04:15 WBC RBC Hgb Hct MCHC RDW [place] % (Auto) [place] # Seg Neutrophils % Lymphocytes % (Manual) Seg Neutrophils # Lymphocytes # (Manual) PT INR APTT D-Dimer Heparin Anti-Xa Level POC ABG pH POC ABG pCO2 POC ABG pO2 115 H Sodium Potassium Chloride Carbon Dioxide BUN Creatinine Glucose POC Glucose 247 H 251 H Lactic Acid Calcium Magnesium AST Alkaline Phosphatase Total Creatine Kinase CK-MB (CK-2) Troponin T C-Reactive Protein Total Protein Albumin Cholesterol LDL Cholesterol Direct HDL Cholesterol Urine WBC (Auto) Urine Creatinine Urine Total Protein Crossmatch 08/18/18 08/18/18 08/18/18 05:02 12:20 17:51 WBC RBC Hgb Hct MCHC RDW [place] % (Auto) [place] # Seg Neutrophils % Lymphocytes % (Manual) Seg Neutrophils # Lymphocytes # (Manual) PT INR APTT D-Dimer Heparin Anti-Xa Level POC ABG pH POC ABG pCO2 POC ABG pO2 Sodium Potassium Chloride Carbon Dioxide BUN Creatinine Glucose POC Glucose 282 H 209 H 261 H Lactic Acid Calcium Magnesium AST Alkaline Phosphatase Total Creatine Kinase CK-MB (CK-2) Troponin T C-Reactive Protein Total Protein Albumin Cholesterol LDL Cholesterol Direct HDL Cholesterol Urine WBC (Auto) Urine Creatinine Urine Total Protein Crossmatch 08/18/18 08/19/18 08/19/18 23:30 04:54 05:16 WBC RBC 2.62 L Hgb 7.5 L Hct 23.1 L MCHC RDW 18.1 H [place] % (Auto) [place] # Seg Neutrophils % Lymphocytes % (Manual) Seg Neutrophils # Lymphocytes # (Manual) PT INR APTT D-Dimer Heparin Anti-Xa Level POC ABG pH POC ABG pCO2 POC ABG pO2 58 L Sodium Potassium Chloride Carbon Dioxide BUN Creatinine Glucose POC Glucose 231 H Lactic Acid Calcium Magnesium AST Alkaline Phosphatase Total Creatine Kinase CK-MB (CK-2) Troponin T C-Reactive Protein Total Protein Albumin Cholesterol LDL Cholesterol Direct HDL Cholesterol Urine WBC (Auto) Urine Creatinine Urine Total Protein Crossmatch 08/19/18 08/19/18 08/19/18 05:16 05:40 11:56 WBC RBC Hgb Hct MCHC RDW [place] % (Auto) [place] # Seg Neutrophils % Lymphocytes % (Manual) Seg Neutrophils # Lymphocytes # (Manual) PT INR APTT D-Dimer Heparin Anti-Xa Level POC ABG pH POC ABG pCO2 POC ABG pO2 Sodium 152 H D Potassium Chloride 118.7 H Carbon Dioxide BUN 38 H Creatinine Glucose 220 H POC Glucose 227 H 213 H Lactic Acid Calcium 8.1 L D Magnesium AST Alkaline Phosphatase Total Creatine Kinase CK-MB (CK-2) Troponin T C-Reactive Protein Total Protein Albumin Cholesterol LDL Cholesterol Direct HDL Cholesterol Urine WBC (Auto) Urine Creatinine Urine Total Protein Crossmatch 08/19/18 08/19/18 08/20/18 18:37 23:32 04:38 WBC RBC Hgb Hct MCHC RDW [place] % (Auto) [place] # Seg Neutrophils % Lymphocytes % (Manual) Seg Neutrophils # Lymphocytes # (Manual) PT INR APTT D-Dimer Heparin Anti-Xa Level POC ABG pH POC ABG pCO2 POC ABG pO2 140 H Sodium Potassium Chloride Carbon Dioxide BUN Creatinine Glucose POC Glucose 227 H 245 H Lactic Acid Calcium Magnesium AST Alkaline Phosphatase Total Creatine Kinase CK-MB (CK-2) Troponin T C-Reactive Protein Total Protein Albumin Cholesterol LDL Cholesterol Direct HDL Cholesterol Urine WBC (Auto) Urine Creatinine Urine Total Protein Crossmatch 08/20/18 08/20/18 08/20/18 05:31 05:37 05:37 WBC RBC 2.60 L Hgb 7.5 L Hct 22.9 L MCHC RDW 18.4 H [place] % (Auto) [place] # Seg Neutrophils % Lymphocytes % (Manual) Seg Neutrophils # Lymphocytes # (Manual) PT INR APTT D-Dimer Heparin Anti-Xa Level POC ABG pH POC ABG pCO2 POC ABG pO2 Sodium 150 H Potassium Chloride 115.6 H Carbon Dioxide BUN 38 H Creatinine Glucose 276 H POC Glucose 266 H Lactic Acid Calcium 7.9 L Magnesium AST Alkaline Phosphatase Total Creatine Kinase CK-MB (CK-2) Troponin T C-Reactive Protein Total Protein Albumin Cholesterol LDL Cholesterol Direct HDL Cholesterol Urine WBC (Auto) Urine Creatinine Urine Total Protein Crossmatch 08/20/18 08/20/18 08/20/18 14:01 18:20 23:11 WBC RBC Hgb Hct MCHC RDW [place] % (Auto) [place] # Seg Neutrophils % Lymphocytes % (Manual) Seg Neutrophils # Lymphocytes # (Manual) PT INR APTT D-Dimer Heparin Anti-Xa Level POC ABG pH POC ABG pCO2 POC ABG pO2 Sodium Potassium Chloride Carbon Dioxide BUN Creatinine Glucose POC Glucose 305 H 271 H 218 H Lactic Acid Calcium Magnesium AST Alkaline Phosphatase Total Creatine Kinase CK-MB (CK-2) Troponin T C-Reactive Protein Total Protein Albumin Cholesterol LDL Cholesterol Direct HDL Cholesterol Urine WBC (Auto) Urine Creatinine Urine Total Protein Crossmatch 08/21/18 08/21/18 08/21/18 04:41 04:41 06:20 WBC RBC 2.65 L Hgb 7.6 L Hct 23.3 L MCHC RDW 19.1 H [place] % (Auto) [place] # Seg Neutrophils % Lymphocytes % (Manual) Seg Neutrophils # Lymphocytes # (Manual) PT INR APTT D-Dimer Heparin Anti-Xa Level POC ABG pH POC ABG pCO2 POC ABG pO2 Sodium 150 H Potassium Chloride 117.8 H Carbon Dioxide BUN 37 H Creatinine Glucose 233 H POC Glucose 262 H Lactic Acid Calcium 7.9 L Magnesium AST Alkaline Phosphatase Total Creatine Kinase CK-MB (CK-2) Troponin T C-Reactive Protein Total Protein Albumin Cholesterol LDL Cholesterol Direct HDL Cholesterol Urine WBC (Auto) Urine Creatinine Urine Total Protein Crossmatch 08/21/18 08/21/18 08/21/18 10:18 12:04 12:36 WBC RBC Hgb Hct MCHC RDW [place] % (Auto) [place] # Seg Neutrophils % Lymphocytes % (Manual) Seg Neutrophils # Lymphocytes # (Manual) PT INR APTT D-Dimer Heparin Anti-Xa Level POC ABG pH POC ABG pCO2 POC ABG pO2 Sodium Potassium Chloride Carbon Dioxide BUN Creatinine Glucose POC Glucose 256 H 245 H 255 H Lactic Acid Calcium Magnesium AST Alkaline Phosphatase Total Creatine Kinase CK-MB (CK-2) Troponin T C-Reactive Protein Total Protein Albumin Cholesterol LDL Cholesterol Direct HDL Cholesterol Urine WBC (Auto) Urine Creatinine Urine Total Protein Crossmatch 08/21/18 08/21/18 08/22/18 17:36 23:29 05:01 WBC RBC Hgb Hct MCHC RDW [place] % (Auto) [place] # Seg Neutrophils % Lymphocytes % (Manual) Seg Neutrophils # Lymphocytes # (Manual) PT INR APTT D-Dimer Heparin Anti-Xa Level POC ABG pH 7.466 H POC ABG pCO2 33.8 L POC ABG pO2 111 H Sodium Potassium Chloride Carbon Dioxide BUN Creatinine Glucose POC Glucose 263 H 268 H Lactic Acid Calcium Magnesium AST Alkaline Phosphatase Total Creatine Kinase CK-MB (CK-2) Troponin T C-Reactive Protein Total Protein Albumin Cholesterol LDL Cholesterol Direct HDL Cholesterol Urine WBC (Auto) Urine Creatinine Urine Total Protein Crossmatch 08/22/18 08/22/18 08/22/18 05:05 12:05 12:15 WBC RBC Hgb Hct MCHC RDW [place] % (Auto) [place] # Seg Neutrophils % Lymphocytes % (Manual) Seg Neutrophils # Lymphocytes # (Manual) PT INR APTT D-Dimer Heparin Anti-Xa Level POC ABG pH POC ABG pCO2 POC ABG pO2 Sodium 147 H Potassium Chloride 113.2 H Carbon Dioxide BUN 36 H Creatinine Glucose 249 H POC Glucose 256 H 228 H Lactic Acid Calcium 8.2 L Magnesium AST Alkaline Phosphatase Total Creatine Kinase CK-MB (CK-2) Troponin T C-Reactive Protein Total Protein Albumin Cholesterol LDL Cholesterol Direct HDL Cholesterol Urine WBC (Auto) Urine Creatinine Urine Total Protein Crossmatch 08/22/18 08/23/18 08/23/18 17:30 00:03 05:05 WBC RBC Hgb Hct MCHC RDW [place] % (Auto) [place] # Seg Neutrophils % Lymphocytes % (Manual) Seg Neutrophils # Lymphocytes # (Manual) PT INR APTT D-Dimer Heparin Anti-Xa Level POC ABG pH POC ABG pCO2 POC ABG pO2 Sodium Potassium Chloride Carbon Dioxide BUN Creatinine Glucose POC Glucose 291 H 259 H 247 H Lactic Acid Calcium Magnesium AST Alkaline Phosphatase Total Creatine Kinase CK-MB (CK-2) Troponin T C-Reactive Protein Total Protein Albumin Cholesterol LDL Cholesterol Direct HDL Cholesterol Urine WBC (Auto) Urine Creatinine Urine Total Protein Crossmatch 08/23/18 08/23/18 08/23/18 05:14 12:29 17:21 WBC RBC Hgb Hct MCHC RDW [place] % (Auto) [place] # Seg Neutrophils % Lymphocytes % (Manual) Seg Neutrophils # Lymphocytes # (Manual) PT INR APTT D-Dimer Heparin Anti-Xa Level POC ABG pH POC ABG pCO2 POC ABG pO2 Sodium Potassium Chloride Carbon Dioxide BUN Creatinine Glucose POC Glucose 208 H 138 H 175 H Lactic Acid Calcium Magnesium AST Alkaline Phosphatase Total Creatine Kinase CK-MB (CK-2) Troponin T C-Reactive Protein Total Protein Albumin Cholesterol LDL Cholesterol Direct HDL Cholesterol Urine WBC (Auto) Urine Creatinine Urine Total Protein Crossmatch 08/23/18 08/24/18 08/24/18 23:36 01:00 05:50 WBC RBC 2.92 L 2.90 L Hgb 8.3 L 8.2 L Hct 25.4 L 25.2 L MCHC RDW 18.9 H 18.6 H [place] % (Auto) 9.2 H [place] # Seg Neutrophils % Lymphocytes % (Manual) Seg Neutrophils # Lymphocytes # (Manual) PT INR APTT D-Dimer Heparin Anti-Xa Level POC ABG pH POC ABG pCO2 POC ABG pO2 Sodium Potassium Chloride Carbon Dioxide BUN Creatinine Glucose POC Glucose 163 H Lactic Acid Calcium Magnesium AST Alkaline Phosphatase Total Creatine Kinase CK-MB (CK-2) Troponin T C-Reactive Protein Total Protein Albumin Cholesterol LDL Cholesterol Direct HDL Cholesterol Urine WBC (Auto) Urine Creatinine Urine Total Protein Crossmatch 08/24/18 08/24/18 08/24/18 05:50 12:26 18:37 WBC RBC Hgb Hct MCHC RDW [place] % (Auto) [place] # Seg Neutrophils % Lymphocytes % (Manual) Seg Neutrophils # Lymphocytes # (Manual) PT INR APTT D-Dimer Heparin Anti-Xa Level POC ABG pH POC ABG pCO2 POC ABG pO2 Sodium 147 H Potassium Chloride 113.6 H Carbon Dioxide BUN 33 H Creatinine Glucose 210 H POC Glucose 223 H 166 H Lactic Acid Calcium 8.3 L Magnesium AST Alkaline Phosphatase Total Creatine Kinase CK-MB (CK-2) Troponin T C-Reactive Protein Total Protein Albumin Cholesterol LDL Cholesterol Direct HDL Cholesterol Urine WBC (Auto) Urine Creatinine Urine Total Protein Crossmatch 08/24/18 08/25/18 08/25/18 23:47 04:55 04:55 WBC RBC 2.94 L Hgb 8.4 L Hct 25.1 L MCHC RDW 18.2 H [place] % (Auto) [place] # Seg Neutrophils % Lymphocytes % (Manual) Seg Neutrophils # Lymphocytes # (Manual) PT INR APTT D-Dimer Heparin Anti-Xa Level POC ABG pH POC ABG pCO2 POC ABG pO2 Sodium Potassium Chloride 110.2 H Carbon Dioxide BUN 30 H Creatinine Glucose POC Glucose 126 H Lactic Acid Calcium 8.1 L Magnesium AST Alkaline Phosphatase Total Creatine Kinase CK-MB (CK-2) Troponin T C-Reactive Protein Total Protein Albumin Cholesterol LDL Cholesterol Direct HDL Cholesterol Urine WBC (Auto) Urine Creatinine Urine Total Protein Crossmatch Assessment and Plan Mr. casillas is a 77-year-old male with history of stroke in the past, type 2 diabetes,seizure and chronic respiratory failure who is a longterm resident. Patient also has trach and PEG in situ. Patient developed cardiac arrest on July for which he was transferred to this hospital. On arrival at the ER [facility] was found to have a leak and he subsequently had to be intubated. He developed few more episodes of cardiac arrest while in the hospital, had a nuclear brain flow scan on 15 of August which showed minimal flow. Neurology has been consulted to see the current status of the patient and that he is brain or not. Physical examination. * Patient is verbally unresponsive, lying supine on ventilator. Patient has occasional movement of both upper extremities but no movement of lower extremities at all. Patient responds to sternal rub with mild facial grimacing. Corneal reflex is present. Pupils sluggishly reactive to light and are very small. No reflexes in the extremities and plantar stimuli did not elicit any response. Impression. 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 To determine the prognosis will need an EEG to show the current level of electrical activity in the brain. Recommend. Bedside EEG. After reviewing the EEG further recommendation to follow.
[2018-08-25 14:12] LABS: Bilirubin,Urine NEG (Negative); Blood,Urine MOD (Negative); Color,Urine Yellow (Yellow); Urobilinogen,Urine < 2.0 mg/dL (<2.0)
[2018-08-25 14:14] LABS: WBC,Urine > 182.0 /HPF (0.0-6.0)
[2018-08-25] MEDS: LANTUS SUB-Q SCH (15:14)
--- NOTE | 2018-08-25 15:20 | Procedure Note ---
Date of procedure: 08/25/18 Pre-op diagnosis: respiratory failure Post-op diagnosis: same Procedure: Bronchoscopy Bronchoscopic Report Written Consent was on the chart. Pre-op Dx Respiratory Failure Post-op Dx same Procedure Bronchoscopy for tracheostomy placement (CPT 55139) Surgeon Sukumar Davies MD Surgeon performing tracheostomy Shanti Lawrence, Anesth MAC EBL min Specimen none Findings normal anatomy. No secretions. Complications none Disposition Stable in ICU Indications Procedure, risks, benefits, alternatives have been discussed. Consent was obtained. Procedure After time out was called, bronchoscopy was begun. Airway was evaluated. Secretions were aspirated. ETT was pulled back to about 18cm at the teeth. Later, had to be retracted to 16cm. Dr. Lawrence performed the tracheostomy under bronchoscopic guidance. Introducer needle was seen safely entering the trachea. Trach was placed after serial dilation. Bronchoscope was then inserted through the trach to confirm position. There was several centimeters of space above the denton. There was no bleeding. The pulsation of the innominate artery was not seen. Patient had good inspiratory and expiratory tidal volumes. Pt was stable in ICU. Findings: normal trachea - no secretions Anesthesia: MAC Surgeon: VINNY DAVIES [employer] Supervisor: LUANNE LAWRENCE (performed trach) Estimated blood loss: none Pathology: none Condition: stable Disposition: ICU
--- NOTE | 2018-08-25 16:10 | XRay Report ---
PROCEDURE: XR CHEST 1V AP TECHNIQUE: Chest radiograph single view. HISTORY: s/p tracheostomy COMPARISONS: Prior chest x-ray 08/24/2018 . FINDINGS: Patient is mildly rotated to the left. Tracheostomy tube has been placed since the prior study. The t ip of the tube lies 5 cm above the denton. On today's study there is increasing patchy alveolar densi ty posterior to the heart on the left suggesting developing atelectasis or infiltrate. I cannot exclu de a minimal left effusion. Lungs otherwise are clear. Heart size and pulmonary vasculature appear no rmal. IMPRESSION: Tracheostomy tube in good position. Increasing retrocardiac density on the left as described suggesting atelectasis or infiltrate. A smal l left effusion cannot be excluded. This document is electronically signed by Alexander Dsouza MD., Aug 25 2018 04:08:55 PM ET
--- NOTE | 2018-08-25 16:39 | Procedure Note ---
Date of procedure: 08/25/18 Pre-op diagnosis: ventilator dependent respiratory failure Post-op diagnosis: same Procedure: percutaneous tracheostomy Findings: Time out performed. Shoulder roll placed and patient's neck slightly hyperextended. The anatomy was palpated. Dr. Marvin performed bronchoscopy throughout procedure. Skin at the old tracheostomy site was anesthetized with local anesthetic. A transverse incision was made and the subcutaneous tissue d ilated bluntly using a hemostat. A needle was inserted into the trachea undirect visualization and wire passed towards the denton. The needle was removed and trachea serially dilated. An 8F shiley tracheostomy tube was inserted. The balloon was seen in the trachea and was inflated. Bronchoscopy performed through the tracheostomy showed adequate placement and no bleeding. The tracheostomy was hooked up to the ventilator and inspiratory and expiratory tidal volumes were satisfactory. A drain sponge was placed between the tracheostomy and the skin. The tracheostomy was secured using the neck strap. The patient was placed back into semifowlers position. He tolerated the procedure well. All sharps were disposed of appropriately. Post procedure CXR showed good positioning of the tracheostomy. Anesthesia: KAYE, local Surgeon: LUANNE LAWRENCE Estimated blood loss: minimal Pathology: none Condition: stable Disposition: no change
[2018-08-25] MEDS: KEPPRA PO SCH ×2 (16:40→21:09)
[2018-08-25] MEDS: ASPIRIN PO SCH (16:41)
[2018-08-25] MEDS: PEPCID PO SCH ×2 (16:41→21:09)
[2018-08-25] MEDS ORDERED: CITRATE OF MAGNESIA PO ONE (18:00)
[2018-08-25] MEDS ORDERED: SIMPLE SYRUP FEEDTUBE PRN ×2 (18:36)
[2018-08-25] MEDS ORDERED: PANCREAZE DR 10,500 UNIT FEEDTUBE PRN (18:36)
[2018-08-25] MEDS ORDERED: SODIUM BICARBONATE FEEDTUBE PRN (18:36)
[2018-08-25] MEDS: LOVENOX SUB-Q SCH (21:09)
[2018-08-26 05:05] LABS: Basophils % (Auto) 0.6 % (0.0-1.8); Eosinophils # (Auto) 0.2 K/mm3 (0.0-0.4); Eosinophils % (Auto) 2.6 % (0.0-4.3); Hematocrit 25.7 % (35.5-45.6); Hemoglobin 8.3 gm/dl (11.8-15.2); Lymphocytes # (Auto) 0.8 K/mm3 (1.2-5.4); Lymphocytes % (Auto) 10.5 % (13.4-35.0); Mean Corpuscular HGB Conc 32 % (32-34); Mean Corpuscular Volume 87 fl (84-94); Monocytes # (Auto) 0.7 K/mm3 (0.0-0.8); Monocytes % (Auto) 9.3 % (0.0-7.3); Platelet Count 305 K/mm3 (140-440); Red Blood Count 2.96 M/mm3 (3.65-5.03); Red Cell Distribution Width 18.2 % (13.2-15.2)
[2018-08-26 05:22] LABS: BUN/Creatinine Ratio 39; Blood Urea Nitrogen 27 mg/dL (9-20); Hemolysis Index 2
[2018-08-26] MEDS: HumaLOG SUB-Q SCH ×6 (06:19→22:00)
[2018-08-26] MEDS: LANTUS SUB-Q SCH (08:22)
[2018-08-26] MEDS ORDERED: CITRATE OF MAGNESIA PO ONE ×3 (09:00→12:00)
--- NOTE | 2018-08-26 09:12 | Progress Note ---
Assessment and Plan Acute hypoxemic respiratory failure on chronic on MVS . s/p Tracheostomy Status post cardiac arrest. Seizure disorder with breakthrough seizures. History of diabetes. History of cerebrovascular accident. Oropharyngeal dysphagia. History of seizures. Hypernatremia -Tracheostomy care, airway clearance, secretion management -Continue free water flushes for hypernatremia -Continue all current care as documented below -Adequate gas exchange -Get thyroid function testing to r/o hypothyroidism as a cause for persistent mental status changes - Continue MVS - Lung protective strategies - VAP bundle addressed - SBTs daily as tolerated -Supportive transfusions, to keep HgB >7g/dL - Continue Keppra for seizures with prn ativan IV for breakthrough - Continue Stress ulcer & VTE prophylaxis - Continue bronchodilators with pulmonary hygiene per RT - Continue to wean supplemental oxygen to keep O2 sats 88-90% - Chronic home medications - Replete electrolytes as indicated - Monitor renal indices closely - Avoid nephrotoxic agents, adjust all medications for CrCL - Strict intake and output monitoring - Continue enteral nutrition as tolerated - Continue accuchecks with glycemic control - Target glucose of 140-180 mg/dL - Maintenance of sleep -wake cycle - Mobility as tolerated by hemodynamics - Influenza and pneumonia vaccination per protocol ....discussed with RT/RN Get EEG if normal start a neurostimulant to help with weaning. Start discharge planning, will need LTACH for weaning PROGNOSIS: GUARDED -POOR CONDITION: CRITICAL CODE STATUS: FULL CODE The high probability of a clinically significant, sudden or life-threatening deterioration of the [respiratory, neurology, renal] system(s) required my full and direct attention, intervention and personal management. The aggregate critical care time was [31] minutes without overlap. Time includes spent on; [x] Data Review and interpretation [x] Patient assessment and monitoring of vital signs [x] Documentation [x] Medication orders and management Subjective Date of service: 08/26/18 Principal diagnosis: Acute hypoxemic resp failure; S/P cardiac arrest; Seizures; DM II; H/O CVA Interval history: Patient is seen today for: Acute hypoxemic respiratory failure on chronic; Status post cardiac arrest; Seizure disorder with breakthrough seizures; History of diabetes; History of cerebrovascular accident; Oropharyngeal dysphagia; History of seizures. Seen and examined at bedside; 24hour events reviewed; nursing and respiratory care staff consulted; no adverse overnight events reported to me; remains on MVS; AMS is persistent; no emesis or overt aspiration; no fevers or chills reported and no seizure activity, no vomiting, no acute overnight events Vent settings AC-PRVC 12/400/6/24% ABG 7.43/35.5/91/23.4. Apneas when placed on PSV s/p trachesotomy Objective Vital Signs - 12hr 08/25/18 08/25/18 08/25/18 21:28 22:00 23:00 Temperature Pulse Rate 64 66 68 Pulse Rate [ From Monitor] Respiratory 12 13 Rate Blood Pressure 132/58 125/60 124/69 O2 Sat by Pulse 100 100 100 Oximetry O2 Sat by Pulse Oximetry [ Assessment] 08/25/18 08/25/18 08/26/18 23:28 23:48 00:00 Temperature 97.2 F L Pulse Rate 67 65 Pulse Rate [ 69 From Monitor] Respiratory 12 14 Rate Blood Pressure 124/69 132/63 O2 Sat by Pulse 100 100 100 Oximetry O2 Sat by Pulse 100 Oximetry [ Assessment] 08/26/18 08/26/18 08/26/18 00:01 01:01 02:00 Temperature Pulse Rate 69 68 66 Pulse Rate [ From Monitor] Respiratory 10 L 11 L 12 Rate Blood Pressure 141/65 140/64 143/65 O2 Sat by Pulse 100 100 100 Oximetry O2 Sat by Pulse Oximetry [ Assessment] 08/26/18 08/26/18 08/26/18 03:00 04:00 05:00 Temperature 97.8 F Pulse Rate 72 72 73 Pulse Rate [ 70 From Monitor] Respiratory 9 L 12 13 Rate Blood Pressure 128/59 144/64 132/59 O2 Sat by Pulse 100 100 100 Oximetry O2 Sat by Pulse Oximetry [ Assessment] 08/26/18 08/26/18 08/26/18 05:22 05:33 06:00 Temperature Pulse Rate 76 72 Pulse Rate [ From Monitor] Respiratory 11 L Rate Blood Pressure 132/59 128/57 O2 Sat by Pulse 100 100 Oximetry O2 Sat by Pulse 100 Oximetry [ Assessment] 08/26/18 08/26/18 08/26/18 07:00 07:31 08:00 Temperature 97.9 F Pulse Rate 73 72 Pulse Rate [ From Monitor] Respiratory 11 L 12 Rate Blood Pressure 119/64 114/65 O2 Sat by Pulse 100 100 Oximetry O2 Sat by Pulse Oximetry [ Assessment] 08/26/18 08/26/18 08:02 08:22 Temperature Pulse Rate 72 69 Pulse Rate [ From Monitor] Respiratory 11 L Rate Blood Pressure 129/58 143/64 O2 Sat by Pulse 100 100 Oximetry O2 Sat by Pulse Oximetry [ Assessment] Constitutional: no acute distress, other (Elderly looking AAM, normocephalic resting in bed on MVS) Eyes: non-icteric ENT: oropharynx moist, other (s/p tracheosotomy SIze #8) Neck: supple, no lymphadenopathy, no JVD, other (no thyromegaly) Effort: normal Ascultation: Bilateral: diminished breath sounds, rhonchi Percussion: Bilateral: not dull Cardiovascular: regular rate and rhythm, other (S1,S2, no murmurs, gallops or rubs) Gastrointestinal: normoactive bowel sounds, soft, non-tender, non-distended Integumentary: normal Extremities: no cyanosis, pulses normal, no ischemia or petechiae, edema (trace ) Neurologic: unable to assess Psychiatric: other (unable to assess) CBC and BMP: 08/26/18 04:39 08/26/18 04:39 ABG, PT/INR, D-dimer: ABG POC ABG pH 7.427 (7.35-7.45) 08/24/18 00:10 POC ABG pCO2 35.5 (35-45) 08/24/18 00:10 POC ABG pO2 91 (80-105) 08/24/18 00:10 POC ABG HCO3 23.4 (22-26 mml/L) 08/24/18 00:10 POC ABG Total CO2 24 (23-27mmol/L) 08/24/18 00:10 POC ABG O2 Sat 97 08/24/18 00:10 PT/INR, D-dimer PT 16.5 Sec. (12.2-14.9) H 08/13/18 00:47 INR 1.25 (0.87-1.13) H 08/13/18 00:47 2742.50 ng/mlDDU (0-234) H 08/13/18 20:07 Abnormal lab findings: Abnormal Labs 08/12/18 08/12/18 08/12/18 21:44 21:44 21:44 WBC 15.5 H RBC 3.12 L Hgb 8.8 L Hct 28.9 L MCHC 31 L RDW 19.5 H Lymph % (Auto) [place] % (Auto) Lymph # [place] # Seg Neutrophils % Lymphocytes % (Manual) 48.0 H Seg Neutrophils # Lymphocytes # (Manual) 7.4 H PT 17.8 H INR 1.37 H APTT D-Dimer Heparin Anti-Xa Level POC ABG pH POC ABG pCO2 POC ABG pO2 Sodium 159 H Potassium Chloride 118.5 H Carbon Dioxide BUN 34 H Creatinine Glucose 161 H POC Glucose Lactic Acid Calcium Magnesium AST Alkaline Phosphatase Total Creatine Kinase CK-MB (CK-2) Troponin T 0.105 H* C-Reactive Protein Total Protein Albumin Cholesterol LDL Cholesterol Direct HDL Cholesterol Urine WBC (Auto) Urine Creatinine Urine Total Protein Crossmatch 08/13/18 08/13/18 08/13/18 00:32 00:47 00:47 WBC RBC Hgb 9.2 L Hct 29.6 L MCHC RDW Lymph % (Auto) [place] % (Auto) Lymph # [place] # Seg Neutrophils % Lymphocytes % (Manual) Seg Neutrophils # Lymphocytes # (Manual) PT 16.5 H INR 1.25 H APTT 37.3 H D-Dimer Heparin Anti-Xa Level POC ABG pH POC ABG pCO2 POC ABG pO2 Sodium Potassium Chloride Carbon Dioxide BUN Creatinine Glucose POC Glucose Lactic Acid Calcium Magnesium AST Alkaline Phosphatase Total Creatine Kinase 211 H CK-MB (CK-2) 7.7 H Troponin T 0.169 H* D C-Reactive Protein Total Protein Albumin Cholesterol 46 L LDL Cholesterol Direct 17 L HDL Cholesterol 6 L Urine WBC (Auto) Urine Creatinine Urine Total Protein Crossmatch 08/13/18 08/13/18 08/13/18 00:50 02:25 05:34 WBC RBC Hgb Hct MCHC RDW Lymph % (Auto) [place] % (Auto) Lymph # [place] # Seg Neutrophils % Lymphocytes % (Manual) Seg Neutrophils # Lymphocytes # (Manual) PT INR APTT D-Dimer Heparin Anti-Xa Level POC ABG pH 7.503 H POC ABG pCO2 POC ABG pO2 253 H Sodium Potassium Chloride Carbon Dioxide BUN Creatinine Glucose POC Glucose Lactic Acid Calcium Magnesium AST Alkaline Phosphatase Total Creatine Kinase 311 H CK-MB (CK-2) 10.4 H Troponin T 0.283 H* D C-Reactive Protein Total Protein Albumin Cholesterol LDL Cholesterol Direct HDL Cholesterol Urine WBC (Auto) > 182.0 H Urine Creatinine Urine Total Protein Crossmatch 08/13/18 08/13/18 08/13/18 06:35 10:10 10:10 WBC RBC Hgb Hct MCHC RDW Lymph % (Auto) [place] % (Auto) Lymph # [place] # Seg Neutrophils % Lymphocytes % (Manual) Seg Neutrophils # Lymphocytes # (Manual) PT INR APTT D-Dimer Heparin Anti-Xa Level POC ABG pH 7.554 H POC ABG pCO2 33.5 L POC ABG pO2 220 H Sodium 158 H Potassium Chloride 117.1 H Carbon Dioxide BUN 53 H Creatinine 2.0 H Glucose 247 H POC Glucose Lactic Acid Calcium 8.2 L Magnesium AST Alkaline Phosphatase Total Creatine Kinase 309 H CK-MB (CK-2) 4.1 H Troponin T 0.470 H* D C-Reactive Protein Total Protein Albumin Cholesterol LDL Cholesterol Direct HDL Cholesterol Urine WBC (Auto) Urine Creatinine Urine Total Protein Crossmatch 08/13/18 08/13/18 08/13/18 12:53 12:53 17:55 WBC RBC Hgb Hct MCHC RDW Lymph % (Auto) [place] % (Auto) Lymph # [place] # Seg Neutrophils % Lymphocytes % (Manual) Seg Neutrophils # Lymphocytes # (Manual) PT INR APTT D-Dimer Heparin Anti-Xa Level POC ABG pH POC ABG pCO2 POC ABG pO2 Sodium Potassium Chloride Carbon Dioxide BUN Creatinine Glucose POC Glucose 308 H Lactic Acid 2.80 H* Calcium Magnesium 2.50 H AST Alkaline Phosphatase Total Creatine Kinase CK-MB (CK-2) Troponin T C-Reactive Protein 16.90 H Total Protein Albumin Cholesterol LDL Cholesterol Direct HDL Cholesterol Urine WBC (Auto) Urine Creatinine Urine Total Protein Crossmatch 08/13/18 08/13/18 08/13/18 20:07 21:16 23:17 WBC RBC Hgb Hct MCHC RDW Lymph % (Auto) [place] % (Auto) Lymph # [place] # Seg Neutrophils % Lymphocytes % (Manual) Seg Neutrophils # Lymphocytes # (Manual) PT INR APTT D-Dimer 2742.50 H Heparin Anti-Xa Level POC ABG pH 7.483 H POC ABG pCO2 30.8 L POC ABG pO2 150 H Sodium Potassium Chloride Carbon Dioxide BUN Creatinine Glucose POC Glucose 245 H Lactic Acid Calcium Magnesium AST Alkaline Phosphatase Total Creatine Kinase CK-MB (CK-2) Troponin T C-Reactive Protein Total Protein Albumin Cholesterol LDL Cholesterol Direct HDL Cholesterol Urine WBC (Auto) Urine Creatinine Urine Total Protein Crossmatch 08/14/18 08/14/18 08/14/18 04:03 04:03 04:56 WBC 18.2 H RBC 2.62 L Hgb 7.3 L Hct 24.5 L MCHC RDW 18.9 H Lymph % (Auto) [place] % (Auto) Lymph # [place] # 1.2 H Seg Neutrophils % 79.4 H Lymphocytes % (Manual) Seg Neutrophils # 14.5 H Lymphocytes # (Manual) PT INR APTT D-Dimer Heparin Anti-Xa Level POC ABG pH POC ABG pCO2 33.5 L POC ABG pO2 153 H Sodium 152 H Potassium 3.4 L Chloride 113.8 H Carbon Dioxide BUN 72 H Creatinine 2.7 H Glucose 239 H POC Glucose Lactic Acid Calcium 7.6 L Magnesium AST 50 H Alkaline Phosphatase 219 H Total Creatine Kinase CK-MB (CK-2) Troponin T 0.409 H* C-Reactive Protein Total Protein 6.2 L Albumin 1.9 L Cholesterol LDL Cholesterol Direct HDL Cholesterol Urine WBC (Auto) Urine Creatinine Urine Total Protein Crossmatch 08/14/18 08/14/18 08/14/18 05:18 13:38 15:35 WBC RBC Hgb Hct MCHC RDW Lymph % (Auto) [place] % (Auto) Lymph # [place] # Seg Neutrophils % Lymphocytes % (Manual) Seg Neutrophils # Lymphocytes # (Manual) PT INR APTT D-Dimer Heparin Anti-Xa Level POC ABG pH POC ABG pCO2 POC ABG pO2 Sodium 150 H Potassium 3.2 L Chloride 114.5 H Carbon Dioxide BUN 69 H Creatinine 2.3 H Glucose 247 H POC Glucose 242 H 296 H Lactic Acid Calcium 7.2 L Magnesium AST Alkaline Phosphatase Total Creatine Kinase CK-MB (CK-2) Troponin T C-Reactive Protein Total Protein Albumin Cholesterol LDL Cholesterol Direct HDL Cholesterol Urine WBC (Auto) Urine Creatinine Urine Total Protein Crossmatch 08/14/18 08/14/18 08/14/18 17:01 17:20 23:47 WBC RBC Hgb Hct MCHC RDW Lymph % (Auto) [place] % (Auto) Lymph # [place] # Seg Neutrophils % Lymphocytes % (Manual) Seg Neutrophils # Lymphocytes # (Manual) PT INR APTT D-Dimer Heparin Anti-Xa Level POC ABG pH POC ABG pCO2 POC ABG pO2 Sodium Potassium Chloride Carbon Dioxide BUN Creatinine Glucose POC Glucose 261 H 280 H Lactic Acid Calcium Magnesium AST Alkaline Phosphatase Total Creatine Kinase CK-MB (CK-2) Troponin T C-Reactive Protein Total Protein Albumin Cholesterol LDL Cholesterol Direct HDL Cholesterol Urine WBC (Auto) Urine Creatinine 60.9 H Urine Total Protein 64 H Crossmatch 08/15/18 08/15/18 08/15/18 04:05 04:05 04:05 WBC RBC Hgb 6.3 L Hct 19.7 L* MCHC RDW Lymph % (Auto) [place] % (Auto) Lymph # [place] # Seg Neutrophils % Lymphocytes % (Manual) Seg Neutrophils # Lymphocytes # (Manual) PT INR APTT D-Dimer Heparin Anti-Xa Level 0.17 L POC ABG pH POC ABG pCO2 POC ABG pO2 Sodium 146 H Potassium 3.0 L Chloride 110.6 H Carbon Dioxide BUN 64 H Creatinine 2.2 H Glucose 231 H POC Glucose Lactic Acid Calcium 7.1 L Magnesium AST Alkaline Phosphatase Total Creatine Kinase CK-MB (CK-2) Troponin T C-Reactive Protein Total Protein Albumin Cholesterol LDL Cholesterol Direct HDL Cholesterol Urine WBC (Auto) Urine Creatinine Urine Total Protein Crossmatch 08/15/18 08/15/18 08/15/18 05:21 05:26 06:35 WBC RBC Hgb Hct MCHC RDW Lymph % (Auto) [place] % (Auto) Lymph # [place] # Seg Neutrophils % Lymphocytes % (Manual) Seg Neutrophils # Lymphocytes # (Manual) PT INR APTT 79.0 H* D-Dimer Heparin Anti-Xa Level POC ABG pH 7.494 H POC ABG pCO2 POC ABG pO2 155 H Sodium Potassium Chloride Carbon Dioxide BUN Creatinine Glucose POC Glucose 271 H Lactic Acid Calcium Magnesium AST Alkaline Phosphatase Total Creatine Kinase CK-MB (CK-2) Troponin T C-Reactive Protein Total Protein Albumin Cholesterol LDL Cholesterol Direct HDL Cholesterol Urine WBC (Auto) Urine Creatinine Urine Total Protein Crossmatch 08/15/18 08/15/18 08/15/18 12:10 15:31 17:27 WBC RBC Hgb Hct MCHC RDW Lymph % (Auto) [place] % (Auto) Lymph # [place] # Seg Neutrophils % Lymphocytes % (Manual) Seg Neutrophils # Lymphocytes # (Manual) PT INR APTT D-Dimer Heparin Anti-Xa Level POC ABG pH POC ABG pCO2 POC ABG pO2 Sodium Potassium Chloride Carbon Dioxide BUN Creatinine Glucose POC Glucose 301 H 287 H Lactic Acid Calcium Magnesium AST Alkaline Phosphatase Total Creatine Kinase CK-MB (CK-2) Troponin T C-Reactive Protein Total Protein Albumin Cholesterol LDL Cholesterol Direct HDL Cholesterol Urine WBC (Auto) Urine Creatinine Urine Total Protein Crossmatch See Detail 08/15/18 08/15/18 08/16/18 21:41 23:45 04:13 WBC RBC Hgb Hct MCHC RDW Lymph % (Auto) [place] % (Auto) Lymph # [place] # Seg Neutrophils % Lymphocytes % (Manual) Seg Neutrophils # Lymphocytes # (Manual) PT INR APTT D-Dimer Heparin Anti-Xa Level 0.19 L POC ABG pH POC ABG pCO2 32.1 L POC ABG pO2 107 H Sodium Potassium Chloride Carbon Dioxide BUN Creatinine Glucose POC Glucose 163 H Lactic Acid Calcium Magnesium AST Alkaline Phosphatase Total Creatine Kinase CK-MB (CK-2) Troponin T C-Reactive Protein Total Protein Albumin Cholesterol LDL Cholesterol Direct HDL Cholesterol Urine WBC (Auto) Urine Creatinine Urine Total Protein Crossmatch 08/16/18 08/16/18 08/16/18 04:50 05:28 11:30 WBC RBC 2.67 L Hgb 8.1 L Hct 23.4 L MCHC 35 H RDW 18.3 H Lymph % (Auto) [place] % (Auto) Lymph # [place] # Seg Neutrophils % Lymphocytes % (Manual) Seg Neutrophils # Lymphocytes # (Manual) PT INR APTT D-Dimer Heparin Anti-Xa Level 0.19 L POC ABG pH POC ABG pCO2 POC ABG pO2 Sodium Potassium Chloride Carbon Dioxide BUN Creatinine Glucose POC Glucose 141 H Lactic Acid Calcium Magnesium AST Alkaline Phosphatase Total Creatine Kinase CK-MB (CK-2) Troponin T C-Reactive Protein Total Protein Albumin Cholesterol LDL Cholesterol Direct HDL Cholesterol Urine WBC (Auto) Urine Creatinine Urine Total Protein Crossmatch 08/16/18 08/16/18 08/16/18 11:30 12:00 12:01 WBC RBC Hgb Hct MCHC RDW Lymph % (Auto) [place] % (Auto) Lymph # [place] # Seg Neutrophils % Lymphocytes % (Manual) Seg Neutrophils # Lymphocytes # (Manual) PT INR APTT D-Dimer Heparin Anti-Xa Level 0.15 L POC ABG pH POC ABG pCO2 POC ABG pO2 Sodium Potassium Chloride 107.8 H Carbon Dioxide 21 L BUN 47 H Creatinine 1.6 H Glucose 221 H POC Glucose 267 H Lactic Acid Calcium 6.9 L Magnesium AST Alkaline Phosphatase Total Creatine Kinase CK-MB (CK-2) Troponin T C-Reactive Protein Total Protein Albumin Cholesterol LDL Cholesterol Direct HDL Cholesterol Urine WBC (Auto) Urine Creatinine Urine Total Protein Crossmatch 08/16/18 08/16/18 08/16/18 17:23 20:01 23:13 WBC RBC Hgb Hct MCHC RDW Lymph % (Auto) [place] % (Auto) Lymph # [place] # Seg Neutrophils % Lymphocytes % (Manual) Seg Neutrophils # Lymphocytes # (Manual) PT INR APTT D-Dimer Heparin Anti-Xa Level 0.26 L POC ABG pH POC ABG pCO2 POC ABG pO2 Sodium Potassium Chloride Carbon Dioxide BUN Creatinine Glucose POC Glucose 245 H 256 H Lactic Acid Calcium Magnesium AST Alkaline Phosphatase Total Creatine Kinase CK-MB (CK-2) Troponin T C-Reactive Protein Total Protein Albumin Cholesterol LDL Cholesterol Direct HDL Cholesterol Urine WBC (Auto) Urine Creatinine Urine Total Protein Crossmatch 08/17/18 08/17/18 08/17/18 04:29 04:55 05:34 WBC RBC Hgb 8.2 L Hct 24.3 L MCHC RDW Lymph % (Auto) [place] % (Auto) Lymph # [place] # Seg Neutrophils % Lymphocytes % (Manual) Seg Neutrophils # Lymphocytes # (Manual) PT INR APTT D-Dimer Heparin Anti-Xa Level POC ABG pH POC ABG pCO2 32.4 L POC ABG pO2 108 H Sodium Potassium Chloride Carbon Dioxide BUN Creatinine Glucose POC Glucose 268 H Lactic Acid Calcium Magnesium AST Alkaline Phosphatase Total Creatine Kinase CK-MB (CK-2) Troponin T C-Reactive Protein Total Protein Albumin Cholesterol LDL Cholesterol Direct HDL Cholesterol Urine WBC (Auto) Urine Creatinine Urine Total Protein Crossmatch 08/17/18 08/17/18 08/17/18 11:54 13:44 17:24 WBC RBC Hgb Hct MCHC RDW Lymph % (Auto) [place] % (Auto) Lymph # [place] # Seg Neutrophils % Lymphocytes % (Manual) Seg Neutrophils # Lymphocytes # (Manual) PT INR APTT D-Dimer Heparin Anti-Xa Level POC ABG pH POC ABG pCO2 32.7 L POC ABG pO2 142 H Sodium Potassium Chloride Carbon Dioxide BUN Creatinine Glucose POC Glucose 295 H 283 H Lactic Acid Calcium Magnesium AST Alkaline Phosphatase Total Creatine Kinase CK-MB (CK-2) Troponin T C-Reactive Protein Total Protein Albumin Cholesterol LDL Cholesterol Direct HDL Cholesterol Urine WBC (Auto) Urine Creatinine Urine Total Protein Crossmatch 08/18/18 08/18/18 08/18/18 00:05 00:59 04:15 WBC RBC Hgb Hct MCHC RDW Lymph % (Auto) [place] % (Auto) Lymph # [place] # Seg Neutrophils % Lymphocytes % (Manual) Seg Neutrophils # Lymphocytes # (Manual) PT INR APTT D-Dimer Heparin Anti-Xa Level POC ABG pH POC ABG pCO2 POC ABG pO2 115 H Sodium Potassium Chloride Carbon Dioxide BUN Creatinine Glucose POC Glucose 247 H 251 H Lactic Acid Calcium Magnesium AST Alkaline Phosphatase Total Creatine Kinase CK-MB (CK-2) Troponin T C-Reactive Protein Total Protein Albumin Cholesterol LDL Cholesterol Direct HDL Cholesterol Urine WBC (Auto) Urine Creatinine Urine Total Protein Crossmatch 08/18/18 08/18/18 08/18/18 05:02 12:20 17:51 WBC RBC Hgb Hct MCHC RDW Lymph % (Auto) [place] % (Auto) Lymph # [place] # Seg Neutrophils % Lymphocytes % (Manual) Seg Neutrophils # Lymphocytes # (Manual) PT INR APTT D-Dimer Heparin Anti-Xa Level POC ABG pH POC ABG pCO2 POC ABG pO2 Sodium Potassium Chloride Carbon Dioxide BUN Creatinine Glucose POC Glucose 282 H 209 H 261 H Lactic Acid Calcium Magnesium AST Alkaline Phosphatase Total Creatine Kinase CK-MB (CK-2) Troponin T C-Reactive Protein Total Protein Albumin Cholesterol LDL Cholesterol Direct HDL Cholesterol Urine WBC (Auto) Urine Creatinine Urine Total Protein Crossmatch 08/18/18 08/19/18 08/19/18 23:30 04:54 05:16 WBC RBC 2.62 L Hgb 7.5 L Hct 23.1 L MCHC RDW 18.1 H Lymph % (Auto) [place] % (Auto) Lymph # [place] # Seg Neutrophils % Lymphocytes % (Manual) Seg Neutrophils # Lymphocytes # (Manual) PT INR APTT D-Dimer Heparin Anti-Xa Level POC ABG pH POC ABG pCO2 POC ABG pO2 58 L Sodium Potassium Chloride Carbon Dioxide BUN Creatinine Glucose POC Glucose 231 H Lactic Acid Calcium Magnesium AST Alkaline Phosphatase Total Creatine Kinase CK-MB (CK-2) Troponin T C-Reactive Protein Total Protein Albumin Cholesterol LDL Cholesterol Direct HDL Cholesterol Urine WBC (Auto) Urine Creatinine Urine Total Protein Crossmatch 08/19/18 08/19/18 08/19/18 05:16 05:40 11:56 WBC RBC Hgb Hct MCHC RDW Lymph % (Auto) [place] % (Auto) Lymph # [place] # Seg Neutrophils % Lymphocytes % (Manual) Seg Neutrophils # Lymphocytes # (Manual) PT INR APTT D-Dimer Heparin Anti-Xa Level POC ABG pH POC ABG pCO2 POC ABG pO2 Sodium 152 H D Potassium Chloride 118.7 H Carbon Dioxide BUN 38 H Creatinine Glucose 220 H POC Glucose 227 H 213 H Lactic Acid Calcium 8.1 L D Magnesium AST Alkaline Phosphatase Total Creatine Kinase CK-MB (CK-2) Troponin T C-Reactive Protein Total Protein Albumin Cholesterol LDL Cholesterol Direct HDL Cholesterol Urine WBC (Auto) Urine Creatinine Urine Total Protein Crossmatch 08/19/18 08/19/18 08/20/18 18:37 23:32 04:38 WBC RBC Hgb Hct MCHC RDW Lymph % (Auto) [place] % (Auto) Lymph # [place] # Seg Neutrophils % Lymphocytes % (Manual) Seg Neutrophils # Lymphocytes # (Manual) PT INR APTT D-Dimer Heparin Anti-Xa Level POC ABG pH POC ABG pCO2 POC ABG pO2 140 H Sodium Potassium Chloride Carbon Dioxide BUN Creatinine Glucose POC Glucose 227 H 245 H Lactic Acid Calcium Magnesium AST Alkaline Phosphatase Total Creatine Kinase CK-MB (CK-2) Troponin T C-Reactive Protein Total Protein Albumin Cholesterol LDL Cholesterol Direct HDL Cholesterol Urine WBC (Auto) Urine Creatinine Urine Total Protein Crossmatch 08/20/18 08/20/18 08/20/18 05:31 05:37 05:37 WBC RBC 2.60 L Hgb 7.5 L Hct 22.9 L MCHC RDW 18.4 H Lymph % (Auto) [place] % (Auto) Lymph # [place] # Seg Neutrophils % Lymphocytes % (Manual) Seg Neutrophils # Lymphocytes # (Manual) PT INR APTT D-Dimer Heparin Anti-Xa Level POC ABG pH POC ABG pCO2 POC ABG pO2 Sodium 150 H Potassium Chloride 115.6 H Carbon Dioxide BUN 38 H Creatinine Glucose 276 H POC Glucose 266 H Lactic Acid Calcium 7.9 L Magnesium AST Alkaline Phosphatase Total Creatine Kinase CK-MB (CK-2) Troponin T C-Reactive Protein Total Protein Albumin Cholesterol LDL Cholesterol Direct HDL Cholesterol Urine WBC (Auto) Urine Creatinine Urine Total Protein Crossmatch 08/20/18 08/20/18 08/20/18 14:01 18:20 23:11 WBC RBC Hgb Hct MCHC RDW Lymph % (Auto) [place] % (Auto) Lymph # [place] # Seg Neutrophils % Lymphocytes % (Manual) Seg Neutrophils # Lymphocytes # (Manual) PT INR APTT D-Dimer Heparin Anti-Xa Level POC ABG pH POC ABG pCO2 POC ABG pO2 Sodium Potassium Chloride Carbon Dioxide BUN Creatinine Glucose POC Glucose 305 H 271 H 218 H Lactic Acid Calcium Magnesium AST Alkaline Phosphatase Total Creatine Kinase CK-MB (CK-2) Troponin T C-Reactive Protein Total Protein Albumin Cholesterol LDL Cholesterol Direct HDL Cholesterol Urine WBC (Auto) Urine Creatinine Urine Total Protein Crossmatch 08/21/18 08/21/18 08/21/18 04:41 04:41 06:20 WBC RBC 2.65 L Hgb 7.6 L Hct 23.3 L MCHC RDW 19.1 H Lymph % (Auto) [place] % (Auto) Lymph # [place] # Seg Neutrophils % Lymphocytes % (Manual) Seg Neutrophils # Lymphocytes # (Manual) PT INR APTT D-Dimer Heparin Anti-Xa Level POC ABG pH POC ABG pCO2 POC ABG pO2 Sodium 150 H Potassium Chloride 117.8 H Carbon Dioxide BUN 37 H Creatinine Glucose 233 H POC Glucose 262 H Lactic Acid Calcium 7.9 L Magnesium AST Alkaline Phosphatase Total Creatine Kinase CK-MB (CK-2) Troponin T C-Reactive Protein Total Protein Albumin Cholesterol LDL Cholesterol Direct HDL Cholesterol Urine WBC (Auto) Urine Creatinine Urine Total Protein Crossmatch 08/21/18 08/21/18 08/21/18 10:18 12:04 12:36 WBC RBC Hgb Hct MCHC RDW Lymph % (Auto) [place] % (Auto) Lymph # [place] # Seg Neutrophils % Lymphocytes % (Manual) Seg Neutrophils # Lymphocytes # (Manual) PT INR APTT D-Dimer Heparin Anti-Xa Level POC ABG pH POC ABG pCO2 POC ABG pO2 Sodium Potassium Chloride Carbon Dioxide BUN Creatinine Glucose POC Glucose 256 H 245 H 255 H Lactic Acid Calcium Magnesium AST Alkaline Phosphatase Total Creatine Kinase CK-MB (CK-2) Troponin T C-Reactive Protein Total Protein Albumin Cholesterol LDL Cholesterol Direct HDL Cholesterol Urine WBC (Auto) Urine Creatinine Urine Total Protein Crossmatch 08/21/18 08/21/18 08/22/18 17:36 23:29 05:01 WBC RBC Hgb Hct MCHC RDW Lymph % (Auto) [place] % (Auto) Lymph # [place] # Seg Neutrophils % Lymphocytes % (Manual) Seg Neutrophils # Lymphocytes # (Manual) PT INR APTT D-Dimer Heparin Anti-Xa Level POC ABG pH 7.466 H POC ABG pCO2 33.8 L POC ABG pO2 111 H Sodium Potassium Chloride Carbon Dioxide BUN Creatinine Glucose POC Glucose 263 H 268 H Lactic Acid Calcium Magnesium AST Alkaline Phosphatase Total Creatine Kinase CK-MB (CK-2) Troponin T C-Reactive Protein Total Protein Albumin Cholesterol LDL Cholesterol Direct HDL Cholesterol Urine WBC (Auto) Urine Creatinine Urine Total Protein Crossmatch 08/22/18 08/22/18 08/22/18 05:05 12:05 12:15 WBC RBC Hgb Hct MCHC RDW Lymph % (Auto) [place] % (Auto) Lymph # [place] # Seg Neutrophils % Lymphocytes % (Manual) Seg Neutrophils # Lymphocytes # (Manual) PT INR APTT D-Dimer Heparin Anti-Xa Level POC ABG pH POC ABG pCO2 POC ABG pO2 Sodium 147 H Potassium Chloride 113.2 H Carbon Dioxide BUN 36 H Creatinine Glucose 249 H POC Glucose 256 H 228 H Lactic Acid Calcium 8.2 L Magnesium AST Alkaline Phosphatase Total Creatine Kinase CK-MB (CK-2) Troponin T C-Reactive Protein Total Protein Albumin Cholesterol LDL Cholesterol Direct HDL Cholesterol Urine WBC (Auto) Urine Creatinine Urine Total Protein Crossmatch 08/22/18 08/23/18 08/23/18 17:30 00:03 05:05 WBC RBC Hgb Hct MCHC RDW Lymph % (Auto) [place] % (Auto) Lymph # [place] # Seg Neutrophils % Lymphocytes % (Manual) Seg Neutrophils # Lymphocytes # (Manual) PT INR APTT D-Dimer Heparin Anti-Xa Level POC ABG pH POC ABG pCO2 POC ABG pO2 Sodium Potassium Chloride Carbon Dioxide BUN Creatinine Glucose POC Glucose 291 H 259 H 247 H Lactic Acid Calcium Magnesium AST Alkaline Phosphatase Total Creatine Kinase CK-MB (CK-2) Troponin T C-Reactive Protein Total Protein Albumin Cholesterol LDL Cholesterol Direct HDL Cholesterol Urine WBC (Auto) Urine Creatinine Urine Total Protein Crossmatch 08/23/18 08/23/18 08/23/18 05:14 12:29 17:21 WBC RBC Hgb Hct MCHC RDW Lymph % (Auto) [place] % (Auto) Lymph # [place] # Seg Neutrophils % Lymphocytes % (Manual) Seg Neutrophils # Lymphocytes # (Manual) PT INR APTT D-Dimer Heparin Anti-Xa Level POC ABG pH POC ABG pCO2 POC ABG pO2 Sodium Potassium Chloride Carbon Dioxide BUN Creatinine Glucose POC Glucose 208 H 138 H 175 H Lactic Acid Calcium Magnesium AST Alkaline Phosphatase Total Creatine Kinase CK-MB (CK-2) Troponin T C-Reactive Protein Total Protein Albumin Cholesterol LDL Cholesterol Direct HDL Cholesterol Urine WBC (Auto) Urine Creatinine Urine Total Protein Crossmatch 08/23/18 08/24/18 08/24/18 23:36 01:00 05:50 WBC RBC 2.92 L 2.90 L Hgb 8.3 L 8.2 L Hct 25.4 L 25.2 L MCHC RDW 18.9 H 18.6 H Lymph % (Auto) [place] % (Auto) 9.2 H Lymph # [place] # Seg Neutrophils % Lymphocytes % (Manual) Seg Neutrophils # Lymphocytes # (Manual) PT INR APTT D-Dimer Heparin Anti-Xa Level POC ABG pH POC ABG pCO2 POC ABG pO2 Sodium Potassium Chloride Carbon Dioxide BUN Creatinine Glucose POC Glucose 163 H Lactic Acid Calcium Magnesium AST Alkaline Phosphatase Total Creatine Kinase CK-MB (CK-2) Troponin T C-Reactive Protein Total Protein Albumin Cholesterol LDL Cholesterol Direct HDL Cholesterol Urine WBC (Auto) Urine Creatinine Urine Total Protein Crossmatch 08/24/18 08/24/18 08/24/18 05:50 12:26 18:37 WBC RBC Hgb Hct MCHC RDW Lymph % (Auto) [place] % (Auto) Lymph # [place] # Seg Neutrophils % Lymphocytes % (Manual) Seg Neutrophils # Lymphocytes # (Manual) PT INR APTT D-Dimer Heparin Anti-Xa Level POC ABG pH POC ABG pCO2 POC ABG pO2 Sodium 147 H Potassium Chloride 113.6 H Carbon Dioxide BUN 33 H Creatinine Glucose 210 H POC Glucose 223 H 166 H Lactic Acid Calcium 8.3 L Magnesium AST Alkaline Phosphatase Total Creatine Kinase CK-MB (CK-2) Troponin T C-Reactive Protein Total Protein Albumin Cholesterol LDL Cholesterol Direct HDL Cholesterol Urine WBC (Auto) Urine Creatinine Urine Total Protein Crossmatch 08/24/18 08/25/18 08/25/18 23:47 04:55 04:55 WBC RBC 2.94 L Hgb 8.4 L Hct 25.1 L MCHC RDW 18.2 H Lymph % (Auto) [place] % (Auto) Lymph # [place] # Seg Neutrophils % Lymphocytes % (Manual) Seg Neutrophils # Lymphocytes # (Manual) PT INR APTT D-Dimer Heparin Anti-Xa Level POC ABG pH POC ABG pCO2 POC ABG pO2 Sodium Potassium Chloride 110.2 H Carbon Dioxide BUN 30 H Creatinine Glucose POC Glucose 126 H Lactic Acid Calcium 8.1 L Magnesium AST Alkaline Phosphatase Total Creatine Kinase CK-MB (CK-2) Troponin T C-Reactive Protein Total Protein Albumin Cholesterol LDL Cholesterol Direct HDL Cholesterol Urine WBC (Auto) Urine Creatinine Urine Total Protein Crossmatch 08/25/18 08/26/18 08/26/18 12:40 04:39 04:39 WBC RBC 2.96 L Hgb 8.3 L Hct 25.7 L MCHC RDW 18.2 H Lymph % (Auto) 10.5 L [place] % (Auto) 9.3 H Lymph # 0.8 L [place] # Seg Neutrophils % 77.0 H Lymphocytes % (Manual) Seg Neutrophils # Lymphocytes # (Manual) PT INR APTT D-Dimer Heparin Anti-Xa Level POC ABG pH POC ABG pCO2 POC ABG pO2 Sodium 147 H Potassium Chloride 113.5 H Carbon Dioxide BUN 27 H Creatinine 0.7 L Glucose 106 H POC Glucose Lactic Acid Calcium 8.0 L Magnesium AST Alkaline Phosphatase Total Creatine Kinase CK-MB (CK-2) Troponin T C-Reactive Protein Total Protein Albumin Cholesterol LDL Cholesterol Direct HDL Cholesterol Urine WBC (Auto) > 182.0 H Urine Creatinine Urine Total Protein Crossmatch 08/26/18 05:27 WBC RBC Hgb Hct MCHC RDW Lymph % (Auto) [place] % (Auto) Lymph # [place] # Seg Neutrophils % Lymphocytes % (Manual) Seg Neutrophils # Lymphocytes # (Manual) PT INR APTT D-Dimer Heparin Anti-Xa Level POC ABG pH POC ABG pCO2 POC ABG pO2 Sodium Potassium Chloride Carbon Dioxide BUN Creatinine Glucose POC Glucose 120 H Lactic Acid Calcium Magnesium AST Alkaline Phosphatase Total Creatine Kinase CK-MB (CK-2) Troponin T C-Reactive Protein Total Protein Albumin Cholesterol LDL Cholesterol Direct HDL Cholesterol Urine WBC (Auto) Urine Creatinine Urine Total Protein Crossmatch Allied health notes reviewed: nursing
--- NOTE | 2018-08-26 09:19 | Progress Note ---
Assessment and Plan - Patient Problems (1) MAYLIN (acute kidney injury) Current Visit: Yes Status: Acute Plan to address problem: Acute kidney injury prerenal azotemia versus acute tubular necrosis. Kidney function improved. Continue volume repletion Follow-up electrolytes and renal function (2) Hypernatremia Current Visit: Yes Status: Acute Plan to address problem: cont free water flushes 250cc q4h. Follow-up sodium (3) Acute and chronic respiratory failure Current Visit: Yes Status: Acute Qualifiers: Respiratory failure complication: hypoxia Qualified Code(s): J96.21 - Acute and chronic respiratory failure with hypoxia Plan to address problem: vent management as per pulmonary/CCM (4) Type 2 diabetes mellitus without complications Current Visit: Yes Status: Acute Plan to address problem: Blood sugar management by primary attending. (5) Essential (primary) hypertension Current Visit: Yes Status: Acute Plan to address problem: Blood pressure was low on presentation but has improved. Follow-up blood pressure Subjective Date of service: 08/26/18 Principal diagnosis: Acute hypoxemic resp failure; S/P cardiac arrest; Seizures; DM II; H/O CVA Interval history: pt remains on ventilator, unresponsive. Objective - Vital Signs Vital signs: Vital Signs - 12hr 08/25/18 08/25/18 08/25/18 21:28 22:00 23:00 Temperature Pulse Rate 64 66 68 Pulse Rate [ From Monitor] Respiratory 12 13 Rate Blood Pressure 132/58 125/60 124/69 O2 Sat by Pulse 100 100 100 Oximetry O2 Sat by Pulse Oximetry [ Assessment] 08/25/18 08/25/18 08/26/18 23:28 23:48 00:00 Temperature 97.2 F L Pulse Rate 67 65 Pulse Rate [ 69 From Monitor] Respiratory 12 14 Rate Blood Pressure 124/69 132/63 O2 Sat by Pulse 100 100 100 Oximetry O2 Sat by Pulse 100 Oximetry [ Assessment] 08/26/18 08/26/18 08/26/18 00:01 01:01 02:00 Temperature Pulse Rate 69 68 66 Pulse Rate [ From Monitor] Respiratory 10 L 11 L 12 Rate Blood Pressure 141/65 140/64 143/65 O2 Sat by Pulse 100 100 100 Oximetry O2 Sat by Pulse Oximetry [ Assessment] 08/26/18 08/26/18 08/26/18 03:00 04:00 05:00 Temperature 97.8 F Pulse Rate 72 72 73 Pulse Rate [ 70 From Monitor] Respiratory 9 L 12 13 Rate Blood Pressure 128/59 144/64 132/59 O2 Sat by Pulse 100 100 100 Oximetry O2 Sat by Pulse Oximetry [ Assessment] 08/26/18 08/26/18 08/26/18 05:22 05:33 06:00 Temperature Pulse Rate 76 72 Pulse Rate [ From Monitor] Respiratory 11 L Rate Blood Pressure 132/59 128/57 O2 Sat by Pulse 100 100 Oximetry O2 Sat by Pulse 100 Oximetry [ Assessment] 08/26/18 08/26/18 08/26/18 07:00 07:31 08:00 Temperature 97.9 F Pulse Rate 73 72 Pulse Rate [ 70 From Monitor] Respiratory 11 L 12 Rate Blood Pressure 119/64 114/65 O2 Sat by Pulse 100 100 Oximetry O2 Sat by Pulse Oximetry [ Assessment] 08/26/18 08/26/18 08:02 08:22 Temperature Pulse Rate 72 69 Pulse Rate [ From Monitor] Respiratory 11 L Rate Blood Pressure 129/58 143/64 O2 Sat by Pulse 100 100 Oximetry O2 Sat by Pulse Oximetry [ Assessment] - General Appearance General appearance: chronically ill, sedated on ventilator, comatose EENT: ATNC, mucous membranes moist Neck: no JVD Respiratory: Present: Clear to Ascultation Cardiology: regular, S1S2 Gastrointestinal: normoactive bowel sounds Integumentary: no rash, other (no edema ) Neurologic: other (intubated, unresponsive ) - Lab 08/26/18 04:39 08/26/18 04:39 Most recent lab results Calcium 8.0 mg/dL (8.4-10.2) L 08/26/18 04:39 Phosphorus 3.90 mg/dL (2.5-4.5) 08/15/18 04:05 Magnesium 2.20 mg/dL (1.7-2.3) 08/15/18 04:05 60.9 mg/dL (0.1-20.0) H 08/14/18 17:20 32 mmol/L 08/14/18 17:20 64 mg/dL (5-11.8) H 08/14/18 17:20 Medications & Allergies - Medications Allergies/Adverse Reactions: Allergies No Known Allergies Allergy (Verified 08/12/18 21:47) Home Medications: Home Medications Medication Instructions Recorded Confirmed Last Taken Type Acetaminophen TAB 2 1000units FEEDTUBE Q6HR PRN 08/18/18 08/18/18 Unknown History Amantadine [Symmetrel] 100 mg FEEDTUBE DAILY 08/18/18 08/18/18 08/13/18 History Amlodipine Besylate [Norvasc] 5 mg FEEDTUBE DAILY 08/18/18 08/18/18 08/13/18 History Ascorbic Acid [Vitamin C Oral Liq] 500 mg FEEDTUBE QDAY 08/18/18 08/18/18 08/13/18 History Ascorbic Acid [Vitamin C with Fiordaliza 1 tab FEEDTUBE DAILY 08/18/18 08/18/18 Unknown History Hips] Aspirin BABY CHEW TAB 1 tab FEEDTUBE DAILY 08/18/18 08/18/18 Unknown History Aspirin BABY CHEW TAB 81 mg FEEDTUBE DAILY 08/18/18 08/18/18 08/13/18 History Atorvastatin Calcium [Lipitor] 40 mg FEEDTUBE DAILY 08/18/18 08/18/18 08/13/18 History Benazepril HCl 10 mg FEEDTUBE DAILY 08/18/18 08/18/18 08/13/18 History Bisacodyl [Dulcolax suppos] 10 mg IA QDAY PRN 08/18/18 08/18/18 Unknown History Docusate Sodium [Colace ORAL LIQ] 100 mg FEEDTUBE QDAY PRN 08/18/18 08/18/18 Unknown History Ferrous Sulfate [Ferrous Sulfate 7.5 ml FEEDTUBE DAILY 08/18/18 08/18/18 08/13/18 History 220 MG/5 ML] Glycopyrrolate [Robinul] 2 mg FEEDTUBE Q8H 08/18/18 08/18/18 08/13/18 History Heparin Sod,Porcine/0.9 % NaCl 5,000 units SUB-Q Q8H 08/18/18 08/18/18 Unknown History [Heparin 5,000 Unit/5 ml-Ns] Insulin Glargine,Hum.rec.anlog 40 unit SQ HS 08/18/18 08/18/18 08/12/18 History [Basaglar Kwikpen U-100] Lacosamide [Vimpat] 1 tab FEEDTUBE Q12HR 08/18/18 08/18/18 Unknown History Lipitor 10 mg FEEDTUBE DAILY 08/18/18 08/18/18 Unknown History Mag-Al Plus Suspension 5 ml FEEDTUBE Q4HR PRN 08/18/18 08/19/18 Unknown History Melatonin 3 mg FEEDTUBE HS 08/18/18 08/18/18 Unknown History Sucralfate [Carafate] 1 gm FEEDTUBE Q8H 08/18/18 08/18/18 08/13/18 History Tamsulosin 0.4 mg FEEDTUBE DAILY 08/18/18 08/18/18 Unknown History guaiFENesin 200 mg FEEDTUBE Q4H PRN 08/18/18 08/18/18 Unknown History Active Medications: Generic Name Dose Route Start Last Admin Trade Name Freq PRN Reason Stop Dose Admin Acetaminophen 650 mg 08/13/18 11:40 08/13/18 16:09 Tylenol PO 650 mg Q6H PRN Administration Fever >101 Lipase/Protease/Amylase 1 each 08/25/18 18:36 Pancreazgenia Alas 10,500 Unit FEEDTUBE PRN PRN For Clogged Feeding Tube Aspirin 325 mg 08/17/18 10:00 08/25/18 16:41 Aspirin PO Not Given QDAY LENCHO Atorvastatin Calcium 40 mg 08/14/18 22:00 08/25/18 21:09 Lipitor PO 40 mg QHS LENCHO Administration Dextrose 50 ml 08/13/18 01:34 D50w (25gm) Syringe IV PRN PRN Hypoglycemia Enoxaparin Sodium 40 mg 08/17/18 22:00 08/25/18 21:09 Lovenox SUB-Q 40 mg QDAY@2200 LENCHO Administration Famotidine 20 mg 08/19/18 10:00 08/25/18 21:09 Pepcid PO 20 mg BID LENCHO Administration Hydrophilic Ointment 1 applic 08/13/18 12:21 Vaseline Lip Therapy TP Q2HR PRN Dry Lips Insulin Glargine 44 units 08/25/18 08:00 08/26/18 08:22 Lantus SUB-Q 44 units QAMDIAB LENCHO Administration Insulin Human Lispro 0 unit 08/26/18 10:00 Humalog SUB-Q Q4HR LENCHO Protocol Levetiracetam 1,000 mg 08/13/18 15:00 08/25/18 21:09 Keppra PO 1,000 mg BID LENCHO Administration Modafinil 100 mg 08/27/18 10:00 Provigil PO QAM LENCHO Multi-Ingred Cream/Lotion/Oil/Oint 1 applic 08/13/18 12:21 08/17/18 00:41 Artificial Tears Ophth Oint OU 1 applic Q4HR PRN Administration Dry Eye(s) Ondansetron HCl 4 mg 08/13/18 01:34 Zofran IV Q8H PRN Nausea And Vomiting Simple Syrup 15 ml 08/25/18 18:36 Simple Syrup FEEDTUBE PRN PRN Hypoglycemia Simple Syrup 30 ml 08/25/18 18:36 Simple Syrup FEEDTUBE PRN PRN Hypoglycemia Sodium Bicarbonate 325 mg 08/25/18 18:36 Sodium Bicarbonate FEEDTUBE PRN PRN For Clogged Feeding Tube Sodium Chloride 10 ml 08/13/18 10:00 08/25/18 21:10 Sodium Chloride Flush Syringe 10 Ml IV 10 ml BID LENCHO Administration Sodium Chloride 10 ml 08/13/18 01:34 Sodium Chloride Flush Syringe 10 Ml IV PRN PRN LINE FLUSH
[2018-08-26] MEDS: SODIUM CHLORIDE FLUSH SYRINGE 10 ML IV SCH ×2 (09:30→21:55)
[2018-08-26] MEDS: ASPIRIN PO SCH (10:26)
[2018-08-26] MEDS: KEPPRA PO SCH ×2 (10:26→21:50)
[2018-08-26] MEDS: PEPCID PO SCH ×2 (10:26→21:45)
--- NOTE | 2018-08-26 14:12 | Progress Note ---
Assessment and Plan Assessment and plan: Cardiopulmonary arrest x 3: Most likely related to mucus plugging >NSTEMI, lead ing to severe irreversible brain damage: supportive care, CCM following. Acute on chronic respiratory failure on mechanical ventilation >96 hours: Trach has been removed when patient was orally intubated, continue ventilator management per pulmonology. Tracheostomy was replaced by surgery on 08/25/18. Tracheostomy care, airway clearance, secretion management Right pneumothorax, resolved: Status post chest tube, mgt per pulmonology Anoxic brain injury and status epilepticus poa: neurology consult appreciated, poor prognosis, poor likelihood of recovery, check EEG per neurology recommendations. Hypernatremia/free water deficits, Continue free water via G-tube, sp hypotonic IV solution, monitor bmp closely Acute kidney injury likely due to ATN, poa: Nephrology following, continue IV fluid, avoid renal toxic agents NSTEMI: treated with IV heparin, asa, statin, no bblocker due to bradycardia, hypotension, Cardiology is following Severe protein calorie malnutrition: Dietitian consulted, continue tube feedings UTI/sepsis: Continue antibiotics, follow-up urine cultures-->no growth x 48 hours Type 2 dm with persistent hyperglycemia: cont insulins and adjust according, on tube feedings Anemia: s/p transfusion Urinary retention: continue douglass, condom cath DVT prophylaxis; patient is fully anticoagulated on heparin drip The high probability of a clinically significant, sudden or life threatening deterioration of the [neurology and respiratory] system(s) required my full and direct attention, intervention and personal management. The aggregate critical care time was [33] minutes. This time is in addition to time spent performing reported procedures but includes the following: [x] Data Review and interpretation [x] Patient assessment and monitoring of vital signs [x] Documentation [x] Medication orders and management History Interval history: Patient is a 77 yo man from [facility] with a history of respiratory failure, CVA with tracheostomy and Gtube who presented to [facility] ED following cardiac arrest after being found unresponsive at the long-term. Time down is unknown per records. The patient is on the vent and unresponsive, all history is obtained from the chart. Patient had multiple episodes of arrest/pulselessness. He has been on the vent since then without any improvement. Per ER notes the patient was bagged via tracheostomy which continued to have low tidal volumes and so the patient with orally intubated after which tidal volumes improved. I spoke with and daughter, Felicita and they believe that he aspirated with a mucus plug that caused the cardiopulmonary arrest not NSTEMI.. Initially, he went to [facility] may 05 to june 05, he had fluid on brain and multiple strokes per family and they drained the fluid off the brain. The trach was placed at [facility] and patient went to [facility], x 7 weeks (trach was changed where capped was placed), he was doing well, talking and sitting up. Then he went to [facility], August 03 and his oral care was horrible. The trach care was horrible and not enough suctioning done. Mouth with copious amount of crud. Then on August 12, Friday, he had voice changing and mucus plugging. Followed by respiratory arrest. The NM brain flow scan showed reduced blood flow. Patient had evaluation by neurology who reports patient with intact brainstem function. Hospitalist Physical - Constitutional Vitals: Temp Pulse Resp BP Pulse Ox 98.1 F 68 13 122/60 100 08/26/18 12:00 08/26/18 12:54 08/26/18 12:00 08/26/18 12:54 08/26/18 12:54 General appearance: Present: other (twitching, nonresponsive, intubated) - EENT Eyes: Present: PERRL, EOM intact ENT: hearing intact, clear oral mucosa, dentition normal - Neck Neck: Present: supple, normal ROM - Respiratory Respiratory effort: normal Respiratory: bilateral: CTA - Cardiovascular Rhythm: regular Heart Sounds: Present: S1 & S2. Absent: gallop, rub - Extremities Extremities: no ischemia, No edema, Full ROM - Abdominal General gastrointestinal: soft, non-tender, non-distended, normal bowel sounds - Integumentary Integumentary: Present: clear, warm, dry - Neurologic Neurologic: CNII-XII intact, moves all extremities Results - Labs CBC & Chem 7: 08/26/18 04:39 08/26/18 04:39 Labs: Laboratory Last Values WBC 7.6 K/mm3 (4.5-11.0) 08/26/18 04:39 RBC 2.96 M/mm3 (3.65-5.03) L 08/26/18 04:39 Hgb 8.3 gm/dl (11.8-15.2) L 08/26/18 04:39 Hct 25.7 % (35.5-45.6) L 08/26/18 04:39 MCV 87 fl (84-94) 08/26/18 04:39 MCH 28 pg (28-32) 08/26/18 04:39 MCHC 32 % (32-34) 08/26/18 04:39 RDW 18.2 % (13.2-15.2) H 08/26/18 04:39 Plt Count 305 K/mm3 (140-440) 08/26/18 04:39 Lymph % (Auto) 10.5 % (13.4-35.0) L 08/26/18 04:39 [place] % (Auto) 9.3 % (0.0-7.3) H 08/26/18 04:39 Eos % (Auto) 2.6 % (0.0-4.3) 08/26/18 04:39 Baso % (Auto) 0.6 % (0.0-1.8) 08/26/18 04:39 Lymph # 0.8 K/mm3 (1.2-5.4) L 08/26/18 04:39 Weak[place] # 0.7 K/mm3 (0.0-0.8) 08/26/18 04:39 Eos # 0.2 K/mm3 (0.0-0.4) 08/26/18 04:39 Baso # 0.0 K/mm3 (0.0-0.1) 08/26/18 04:39 Add Manual Diff Complete 08/12/18 21:44 Total Counted 100 08/12/18 21:44 Seg Neutrophils % 77.0 % (40.0-70.0) H 08/26/18 04:39 Seg Neuts % (Manual) 44.0 % (40.0-70.0) 08/12/18 21:44 0 % 08/12/18 21:44 48.0 % (13.4-35.0) H 08/12/18 21:44 Reactive Lymphs % (Man) 0 % 08/12/18 21:44 2.0 % (0.0-7.3) 08/12/18 21:44 1.0 % (0.0-4.3) 08/12/18 21:44 0 % (0.0-1.8) 08/12/18 21:44 1.0 % 08/12/18 21:44 4.0 % 08/12/18 21:44 0 % 08/12/18 21:44 0 % 08/12/18 21:44 Nucleated RBC % Not Reportable 08/12/18 21:44 Seg Neutrophils # 5.8 K/mm3 (1.8-7.7) 08/26/18 04:39 Seg Neutrophils # Man 6.8 K/mm3 (1.8-7.7) 08/12/18 21:44 Band Neutrophils # 0.0 K/mm3 08/12/18 21:44 7.4 K/mm3 (1.2-5.4) H 08/12/18 21:44 Abs React Lymphs (Man) 0.0 K/mm3 08/12/18 21:44 0.3 K/mm3 (0.0-0.8) 08/12/18 21:44 0.2 K/mm3 (0.0-0.4) 08/12/18 21:44 0.0 K/mm3 (0.0-0.1) 08/12/18 21:44 0.2 K/mm3 08/12/18 21:44 0.6 K/mm3 08/12/18 21:44 0.0 K/mm3 08/12/18 21:44 Blast Cells # 0.0 K/mm3 08/12/18 21:44 WBC Morphology Not Reportable 08/12/18 21:44 Hypersegmented Neuts Not Reportable 08/12/18 21:44 Hyposegmented Neuts Not Reportable 08/12/18 21:44 Hypogranular Neuts Not Reportable 08/12/18 21:44 Not Reportable 08/12/18 21:44 Not Reportable 08/12/18 21:44 Not Reportable 08/12/18 21:44 Not Reportable 08/12/18 21:44 Not Reportable 08/12/18 21:44 Not Reportable 08/12/18 21:44 Consistent w auto 08/12/18 21:44 Not Reportable 08/12/18 21:44 Plt Clumps, EDTA Not Reportable 08/12/18 21:44 Not Reportable 08/12/18 21:44 Not Reportable 08/12/18 21:44 Not Reportable 08/12/18 21:44 Plt Morphology Comment Not Reportable 08/12/18 21:44 RBC Morphology Not Reportable 08/12/18 21:44 Dimorphic RBCs Not Reportable 08/12/18 21:44 Not Reportable 08/12/18 21:44 Not Reportable 08/12/18 21:44 Not Reportable 08/12/18 21:44 Few 08/12/18 21:44 Not Reportable 08/12/18 21:44 Not Reportable 08/12/18 21:44 Not Reportable 08/12/18 21:44 Not Reportable 08/12/18 21:44 Not Reportable 08/12/18 21:44 Not Reportable 08/12/18 21:44 Not Reportable 08/12/18 21:44 Few 08/12/18 21:44 Not Reportable 08/12/18 21:44 Not Reportable 08/12/18 21:44 Not Reportable 08/12/18 21:44 Not Reportable 08/12/18 21:44 Not Reportable 08/12/18 21:44 Not Reportable 08/12/18 21:44 Few 08/12/18 21:44 Acanthocytes (Spur) Not Reportable 08/12/18 21:44 Rouleaux Not Reportable 08/12/18 21:44 Not Reportable 08/12/18 21:44 Not Reportable 08/12/18 21:44 Not Reportable 08/12/18 21:44 Not Reportable 08/12/18 21:44 Hem Pathologist Commnt No 08/12/18 21:44 PT 16.5 Sec. (12.2-14.9) H 08/13/18 00:47 INR 1.25 (0.87-1.13) H 08/13/18 00:47 APTT 79.0 Sec. (24.2-36.6) H* 08/15/18 06:35 2742.50 ng/mlDDU (0-234) H 08/13/18 20:07 Heparin Anti-Xa Level 0.26 U.I./ml (0.3-0.7) L 08/16/18 20:01 POC ABG pH 7.427 (7.35-7.45) 08/24/18 00:10 POC ABG pCO2 35.5 (35-45) 08/24/18 00:10 POC ABG pO2 91 (80-105) 08/24/18 00:10 POC ABG HCO3 23.4 (22-26 mml/L) 08/24/18 00:10 POC ABG Total CO2 24 (23-27mmol/L) 08/24/18 00:10 POC ABG O2 Sat 97 08/24/18 00:10 POC ABG Base Excess -1 ((-2) - (+3)mmol/L) 08/24/18 00:10 24 % 08/24/18 00:10 Sodium 147 mmol/L (137-145) H 08/26/18 04:39 Potassium 3.6 mmol/L (3.6-5.0) 08/26/18 04:39 Chloride 113.5 mmol/L (98-107) H 08/26/18 04:39 Carbon Dioxide 26 mmol/L (22-30) 08/26/18 04:39 11 mmol/L 08/26/18 04:39 BUN 27 mg/dL (9-20) H 08/26/18 04:39 0.7 mg/dL (0.8-1.5) L 08/26/18 04:39 Estimated GFR > 60 ml/min 08/26/18 04:39 39 % 08/26/18 04:39 Glucose 106 mg/dL (75-100) H 08/26/18 04:39 POC Glucose 170 (70-105) H 08/26/18 09:54 Lactic Acid 2.80 mmol/L (0.7-2.0) H* 08/13/18 12:53 Calcium 8.0 mg/dL (8.4-10.2) L 08/26/18 04:39 Phosphorus 3.90 mg/dL (2.5-4.5) 08/15/18 04:05 Magnesium 2.20 mg/dL (1.7-2.3) 08/15/18 04:05 0.30 mg/dL (0.1-1.2) 08/14/18 04:03 AST 50 units/L (5-40) H 08/14/18 04:03 ALT 55 units/L (7-56) 08/14/18 04:03 219 units/L (35-129) H 08/14/18 04:03 309 units/L (55-170) H 08/13/18 10:10 CK-MB (CK-2) 4.1 ng/mL (0.0-4.0) H 08/13/18 10:10 CK-MB (CK-2) Rel Index 1.3 (0-4) 08/13/18 10:10 0.409 ng/mL (0.00-0.029) H* 08/14/18 04:03 16.90 mg/dL (0.00-1.30) H 08/13/18 12:53 6.2 g/dL (6.3-8.2) L 08/14/18 04:03 1.9 g/dL (3.9-5) L 08/14/18 04:03 0.4 % 08/14/18 04:03 Triglycerides 62 mg/dL (2-149) 08/13/18 00:32 Cholesterol 46 mg/dL (50-199) L 08/13/18 00:32 17 mg/dL (50-130) L 08/13/18 00:32 6 mg/dL (40-59) L 08/13/18 00:32 7.66 % 08/13/18 00:32 TSH 0.973 mlU/mL (0.270-4.200) 08/26/18 09:00 Free T4 0.51 ng/dL (0.76-1.46) L 08/26/18 09:00 Yellow (Yellow) 08/25/18 12:40 Turbid (Clear) 08/25/18 12:40 7.0 (5.0-7.0) 08/25/18 12:40 Ur Specific Clyde 1.009 (1.003-1.030) 08/25/18 12:40 100 mg/dl mg/dL (Negative) 08/25/18 12:40 Neg mg/dL (Negative) 08/25/18 12:40 Neg mg/dL (Negative) 08/25/18 12:40 Mod (Negative) 08/25/18 12:40 Neg (Negative) 08/25/18 12:40 Neg (Negative) 08/25/18 12:40 < 2.0 mg/dL (<2.0) 08/25/18 12:40 Ur Leukocyte Esterase Lg (Negative) 08/25/18 12:40 > 182.0 /HPF (0.0-6.0) H 08/25/18 12:40 10.0 /HPF (0.0-6.0) 08/25/18 12:40 U Epithel Cells (Auto) 5.0 /HPF (0-13.0) 08/25/18 12:40 2+ /HPF (Negative) 08/13/18 00:50 3+ /HPF 08/25/18 12:40 None seen (None Seen) 08/14/18 17:20 60.9 mg/dL (0.1-20.0) H 08/14/18 17:20 32 mmol/L 08/14/18 17:20 64 mg/dL (5-11.8) H 08/14/18 17:20 Presumptive negative 08/12/18 21:30 Presumptive negative 08/12/18 21:30 Ur Barbiturates Screen Presumptive negative 08/12/18 21:30 Ur Phencyclidine Scrn Presumptive negative 08/12/18 21:30 Ur Amphetamines Screen Presumptive negative 08/12/18 21:30 U Benzodiazepines Scrn Presumptive negative 08/12/18 21:30 Presumptive negative 08/12/18 21:30 U Marijuana (THC) Screen Presumptive negative 08/12/18 21:30 Disclamer 08/12/18 21:30 Blood Type O POSITIVE 08/15/18 15:31 Antibody Screen Negative 08/15/18 15:31 Crossmatch See Detail 08/15/18 15:31 Active Medications - Current Medications Current Medications: Generic Name Dose Route Start Last Admin Trade Name Freq PRN Reason Stop Dose Admin Acetaminophen 650 mg 08/13/18 11:40 08/13/18 16:09 Tylenol PO 650 mg Q6H PRN Administration Fever >101 Lipase/Protease/Amylase 1 each 08/25/18 18:[address] 10,500 Unit FEEDTUBE PRN PRN For Clogged Feeding Tube Aspirin 325 mg 08/17/18 10:00 08/26/18 10:26 Aspirin PO 325 mg QDAY LENCHO Administration Atorvastatin Calcium 40 mg 08/14/18 22:00 08/25/18 21:09 Lipitor PO 40 mg QHS LENCHO Administration Dextrose 50 ml 08/13/18 01:34 D50w (25gm) Syringe IV PRN PRN Hypoglycemia Enoxaparin Sodium 40 mg 08/17/18 22:00 08/25/18 21:09 Lovenox SUB-Q 40 mg QDAY@2200 LENCHO Administration Famotidine 20 mg 08/19/18 10:00 08/26/18 10:26 Pepcid PO 20 mg BID LENCHO Administration Hydrophilic Ointment 1 applic 08/13/18 12:21 Vaseline Lip Therapy TP Q2HR PRN Dry Lips Insulin Glargine 44 units 08/25/18 08:00 08/26/18 08:22 Lantus SUB-Q 44 units QAMDIAB LENCHO Administration Insulin Human Lispro 0 unit 08/26/18 10:00 08/26/18 10:30 Humalog SUB-Q 2 unit Q4HR LENCHO Administration Protocol Levetiracetam 1,000 mg 08/13/18 15:00 08/26/18 10:26 Keppra PO 1,000 mg BID LENCHO Administration Modafinil 100 mg 08/27/18 10:00 Provigil PO QAM LENCHO Multi-Ingred Cream/Lotion/Oil/Oint 1 applic 08/13/18 12:21 08/17/18 00:41 Artificial Tears Ophth Oint OU 1 applic Q4HR PRN Administration Dry Eye(s) Ondansetron HCl 4 mg 08/13/18 01:34 Zofran IV Q8H PRN Nausea And Vomiting Simple Syrup 15 ml 08/25/18 18:36 Simple Syrup FEEDTUBE PRN PRN Hypoglycemia Simple Syrup 30 ml 08/25/18 18:36 Simple Syrup FEEDTUBE PRN PRN Hypoglycemia Sodium Bicarbonate 325 mg 08/25/18 18:36 Sodium Bicarbonate FEEDTUBE PRN PRN For Clogged Feeding Tube Sodium Chloride 10 ml 08/13/18 10:00 08/26/18 09:30 Sodium Chloride Flush Syringe 10 Ml IV 10 ml BID LENCHO Administration Sodium Chloride 10 ml 08/13/18 01:34 Sodium Chloride Flush Syringe 10 Ml IV PRN PRN LINE FLUSH Nutrition/Malnutrition Assess - Dietary Evaluation Nutrition/Malnutrition Findings: Nutrition Notes Start: 08/13/18 15:41 Freq: Status: Active Protocol: Document 08/25/18 09:31 LP (Rec: 08/25/18 09:33 LP [id number]) Nutrition Notes Initial or Follow up Reassessment Current Diagnosis Acute Kidney Injury,Diabetes Other Pertinent Diagnosis UTI, Hx CVA, PEG, Sacral PU, Multiple PU, Anoxic brain injury,R pneumothorax Current Diet Vital 1.2 at 60 ml/hr Labs/Tests Reviewed Pertinent Medications Reviewed Height 5 ft 8 in Weight 79.6 kg [place] Body Weight (kg) 70.00 BMI 26.6 Subjective/Other Information TF is off due to trach placement. Burn Absent Trauma Absent #1 Nutrition Diagnosis Inadequate oral intake Diagnosis Progress(for reassessment Continues documentation) Is patient on ventilator? Yes Is Patient Ambulatory and/or Out of Bed No REE-([facility]-confined to bed) 9211.128 Calculation Used for Recommendations [facility] Additional Notes Protein Needs: 87-145g (1.2-2g /kg) Fluid Needs: 1 ml/kcal Nutrition Intervention Change Diet Order: TF Nutrition Support: Vital 1.2 at 60 ml/hr. Water flush of 100 mls q 4 hrs . Kcal 1,728 Protein (gm) 108 Fluid (mL) 1,167 Add Supplement/Snack (indicate name/kcal Magen BID /protein ) Provides kCal: 190 Provides Protein (gm) 5 Goal #1 meet at least 80% of calorie and protein needs via TF once trach is placed Anticipated Discharge Needs: TF Follow-Up By: 08/27/18 Additional Comments Follow for TF restart/ tolerance
--- NOTE | 2018-08-26 14:24 | Progress Note ---
Assessment and Plan This is Dr. Orantes dictating the progress note on significant vinny No allergy progress note. Patient is verbally unresponsive. No spontaneous movement of extremities. Corneal reflex is present. Responds to deep painful stimulation with mild facial grimacing. No reflexes could be elicited and no plantar response could be elicited. Had EEG this morning which shows diffuse low-voltage cortical activities without any evidence of focal slowing or seizure activity. EEG is suggestive hypoxic encephalopathy. Recommendation: Continue supportive care. Subjective Principal diagnosis: Acute hypoxemic resp failure; S/P cardiac arrest; Seizures; DM II; H/O CVA Objective - Vital Sign Vital Signs - 12hr 08/26/18 08/26/18 08/26/18 03:00 04:00 05:00 Temperature 97.8 F Pulse Rate 72 72 73 Pulse Rate [ 70 From Monitor] Respiratory 9 L 12 13 Rate Blood Pressure 128/59 144/64 132/59 O2 Sat by Pulse 100 100 100 Oximetry O2 Sat by Pulse Oximetry [ Assessment] 08/26/18 08/26/18 08/26/18 05:22 05:33 06:00 Temperature Pulse Rate 76 72 Pulse Rate [ From Monitor] Respiratory 11 L Rate Blood Pressure 132/59 128/57 O2 Sat by Pulse 100 100 Oximetry O2 Sat by Pulse 100 Oximetry [ Assessment] 08/26/18 08/26/18 08/26/18 07:00 07:31 08:00 Temperature 97.9 F Pulse Rate 73 72 Pulse Rate [ 70 From Monitor] Respiratory 11 L 12 Rate Blood Pressure 119/64 114/65 O2 Sat by Pulse 100 100 Oximetry O2 Sat by Pulse Oximetry [ Assessment] 08/26/18 08/26/18 08/26/18 08:02 08:22 09:00 Temperature Pulse Rate 72 69 70 Pulse Rate [ From Monitor] Respiratory 11 L 12 Rate Blood Pressure 129/58 143/64 124/60 O2 Sat by Pulse 100 100 100 Oximetry O2 Sat by Pulse Oximetry [ Assessment] 08/26/18 08/26/18 08/26/18 10:00 10:01 11:00 Temperature Pulse Rate 70 68 67 Pulse Rate [ From Monitor] Respiratory 12 12 Rate Blood Pressure 137/63 137/64 O2 Sat by Pulse 100 100 Oximetry O2 Sat by Pulse Oximetry [ Assessment] 08/26/18 08/26/18 12:00 12:54 Temperature 98.1 F Pulse Rate 67 68 Pulse Rate [ 70 From Monitor] Respiratory 12 Rate Blood Pressure 125/65 122/60 O2 Sat by Pulse 100 100 Oximetry O2 Sat by Pulse Oximetry [ Assessment] - Laboratory Findings CBC and BMP: 08/26/18 04:39 08/26/18 04:39 Abnormal Lab Findings: Abnormal Labs 08/12/18 08/12/18 08/12/18 21:44 21:44 21:44 WBC 15.5 H RBC 3.12 L Hgb 8.8 L Hct 28.9 L MCHC 31 L RDW 19.5 H Lymph % (Auto) [place] % (Auto) Lymph # [place] # Seg Neutrophils % Lymphocytes % (Manual) 48.0 H Seg Neutrophils # Lymphocytes # (Manual) 7.4 H PT 17.8 H INR 1.37 H APTT D-Dimer Heparin Anti-Xa Level POC ABG pH POC ABG pCO2 POC ABG pO2 Sodium 159 H Potassium Chloride 118.5 H Carbon Dioxide BUN 34 H Creatinine Glucose 161 H POC Glucose Lactic Acid Calcium Magnesium AST Alkaline Phosphatase Total Creatine Kinase CK-MB (CK-2) Troponin T 0.105 H* C-Reactive Protein Total Protein Albumin Cholesterol LDL Cholesterol Direct HDL Cholesterol Free T4 Urine WBC (Auto) Urine Creatinine Urine Total Protein Crossmatch 08/13/18 08/13/18 08/13/18 00:32 00:47 00:47 WBC RBC Hgb 9.2 L Hct 29.6 L MCHC RDW Lymph % (Auto) [place] % (Auto) Lymph # [place] # Seg Neutrophils % Lymphocytes % (Manual) Seg Neutrophils # Lymphocytes # (Manual) PT 16.5 H INR 1.25 H APTT 37.3 H D-Dimer Heparin Anti-Xa Level POC ABG pH POC ABG pCO2 POC ABG pO2 Sodium Potassium Chloride Carbon Dioxide BUN Creatinine Glucose POC Glucose Lactic Acid Calcium Magnesium AST Alkaline Phosphatase Total Creatine Kinase 211 H CK-MB (CK-2) 7.7 H Troponin T 0.169 H* D C-Reactive Protein Total Protein Albumin Cholesterol 46 L LDL Cholesterol Direct 17 L HDL Cholesterol 6 L Free T4 Urine WBC (Auto) Urine Creatinine Urine Total Protein Crossmatch 08/13/18 08/13/18 08/13/18 00:50 02:25 05:34 WBC RBC Hgb Hct MCHC RDW Lymph % (Auto) [place] % (Auto) Lymph # [place] # Seg Neutrophils % Lymphocytes % (Manual) Seg Neutrophils # Lymphocytes # (Manual) PT INR APTT D-Dimer Heparin Anti-Xa Level POC ABG pH 7.503 H POC ABG pCO2 POC ABG pO2 253 H Sodium Potassium Chloride Carbon Dioxide BUN Creatinine Glucose POC Glucose Lactic Acid Calcium Magnesium AST Alkaline Phosphatase Total Creatine Kinase 311 H CK-MB (CK-2) 10.4 H Troponin T 0.283 H* D C-Reactive Protein Total Protein Albumin Cholesterol LDL Cholesterol Direct HDL Cholesterol Free T4 Urine WBC (Auto) > 182.0 H Urine Creatinine Urine Total Protein Crossmatch 08/13/18 08/13/18 08/13/18 06:35 10:10 10:10 WBC RBC Hgb Hct MCHC RDW Lymph % (Auto) [place] % (Auto) Lymph # [place] # Seg Neutrophils % Lymphocytes % (Manual) Seg Neutrophils # Lymphocytes # (Manual) PT INR APTT D-Dimer Heparin Anti-Xa Level POC ABG pH 7.554 H POC ABG pCO2 33.5 L POC ABG pO2 220 H Sodium 158 H Potassium Chloride 117.1 H Carbon Dioxide BUN 53 H Creatinine 2.0 H Glucose 247 H POC Glucose Lactic Acid Calcium 8.2 L Magnesium AST Alkaline Phosphatase Total Creatine Kinase 309 H CK-MB (CK-2) 4.1 H Troponin T 0.470 H* D C-Reactive Protein Total Protein Albumin Cholesterol LDL Cholesterol Direct HDL Cholesterol Free T4 Urine WBC (Auto) Urine Creatinine Urine Total Protein Crossmatch 08/13/18 08/13/18 08/13/18 12:53 12:53 17:55 WBC RBC Hgb Hct MCHC RDW Lymph % (Auto) [place] % (Auto) Lymph # [place] # Seg Neutrophils % Lymphocytes % (Manual) Seg Neutrophils # Lymphocytes # (Manual) PT INR APTT D-Dimer Heparin Anti-Xa Level POC ABG pH POC ABG pCO2 POC ABG pO2 Sodium Potassium Chloride Carbon Dioxide BUN Creatinine Glucose POC Glucose 308 H Lactic Acid 2.80 H* Calcium Magnesium 2.50 H AST Alkaline Phosphatase Total Creatine Kinase CK-MB (CK-2) Troponin T C-Reactive Protein 16.90 H Total Protein Albumin Cholesterol LDL Cholesterol Direct HDL Cholesterol Free T4 Urine WBC (Auto) Urine Creatinine Urine Total Protein Crossmatch 08/13/18 08/13/18 08/13/18 20:07 21:16 23:17 WBC RBC Hgb Hct MCHC RDW Lymph % (Auto) [place] % (Auto) Lymph # [place] # Seg Neutrophils % Lymphocytes % (Manual) Seg Neutrophils # Lymphocytes # (Manual) PT INR APTT D-Dimer 2742.50 H Heparin Anti-Xa Level POC ABG pH 7.483 H POC ABG pCO2 30.8 L POC ABG pO2 150 H Sodium Potassium Chloride Carbon Dioxide BUN Creatinine Glucose POC Glucose 245 H Lactic Acid Calcium Magnesium AST Alkaline Phosphatase Total Creatine Kinase CK-MB (CK-2) Troponin T C-Reactive Protein Total Protein Albumin Cholesterol LDL Cholesterol Direct HDL Cholesterol Free T4 Urine WBC (Auto) Urine Creatinine Urine Total Protein Crossmatch 08/14/18 08/14/18 08/14/18 04:03 04:03 04:56 WBC 18.2 H RBC 2.62 L Hgb 7.3 L Hct 24.5 L MCHC RDW 18.9 H Lymph % (Auto) [place] % (Auto) Lymph # [place] # 1.2 H Seg Neutrophils % 79.4 H Lymphocytes % (Manual) Seg Neutrophils # 14.5 H Lymphocytes # (Manual) PT INR APTT D-Dimer Heparin Anti-Xa Level POC ABG pH POC ABG pCO2 33.5 L POC ABG pO2 153 H Sodium 152 H Potassium 3.4 L Chloride 113.8 H Carbon Dioxide BUN 72 H Creatinine 2.7 H Glucose 239 H POC Glucose Lactic Acid Calcium 7.6 L Magnesium AST 50 H Alkaline Phosphatase 219 H Total Creatine Kinase CK-MB (CK-2) Troponin T 0.409 H* C-Reactive Protein Total Protein 6.2 L Albumin 1.9 L Cholesterol LDL Cholesterol Direct HDL Cholesterol Free T4 Urine WBC (Auto) Urine Creatinine Urine Total Protein Crossmatch 08/14/18 08/14/18 08/14/18 05:18 13:38 15:35 WBC RBC Hgb Hct MCHC RDW Lymph % (Auto) [place] % (Auto) Lymph # [place] # Seg Neutrophils % Lymphocytes % (Manual) Seg Neutrophils # Lymphocytes # (Manual) PT INR APTT D-Dimer Heparin Anti-Xa Level POC ABG pH POC ABG pCO2 POC ABG pO2 Sodium 150 H Potassium 3.2 L Chloride 114.5 H Carbon Dioxide BUN 69 H Creatinine 2.3 H Glucose 247 H POC Glucose 242 H 296 H Lactic Acid Calcium 7.2 L Magnesium AST Alkaline Phosphatase Total Creatine Kinase CK-MB (CK-2) Troponin T C-Reactive Protein Total Protein Albumin Cholesterol LDL Cholesterol Direct HDL Cholesterol Free T4 Urine WBC (Auto) Urine Creatinine Urine Total Protein Crossmatch 08/14/18 08/14/18 08/14/18 17:01 17:20 23:47 WBC RBC Hgb Hct MCHC RDW Lymph % (Auto) [place] % (Auto) Lymph # [place] # Seg Neutrophils % Lymphocytes % (Manual) Seg Neutrophils # Lymphocytes # (Manual) PT INR APTT D-Dimer Heparin Anti-Xa Level POC ABG pH POC ABG pCO2 POC ABG pO2 Sodium Potassium Chloride Carbon Dioxide BUN Creatinine Glucose POC Glucose 261 H 280 H Lactic Acid Calcium Magnesium AST Alkaline Phosphatase Total Creatine Kinase CK-MB (CK-2) Troponin T C-Reactive Protein Total Protein Albumin Cholesterol LDL Cholesterol Direct HDL Cholesterol Free T4 Urine WBC (Auto) Urine Creatinine 60.9 H Urine Total Protein 64 H Crossmatch 08/15/18 08/15/18 08/15/18 04:05 04:05 04:05 WBC RBC Hgb 6.3 L Hct 19.7 L* MCHC RDW Lymph % (Auto) [place] % (Auto) Lymph # [place] # Seg Neutrophils % Lymphocytes % (Manual) Seg Neutrophils # Lymphocytes # (Manual) PT INR APTT D-Dimer Heparin Anti-Xa Level 0.17 L POC ABG pH POC ABG pCO2 POC ABG pO2 Sodium 146 H Potassium 3.0 L Chloride 110.6 H Carbon Dioxide BUN 64 H Creatinine 2.2 H Glucose 231 H POC Glucose Lactic Acid Calcium 7.1 L Magnesium AST Alkaline Phosphatase Total Creatine Kinase CK-MB (CK-2) Troponin T C-Reactive Protein Total Protein Albumin Cholesterol LDL Cholesterol Direct HDL Cholesterol Free T4 Urine WBC (Auto) Urine Creatinine Urine Total Protein Crossmatch 08/15/18 08/15/18 08/15/18 05:21 05:26 06:35 WBC RBC Hgb Hct MCHC RDW Lymph % (Auto) [place] % (Auto) Lymph # [place] # Seg Neutrophils % Lymphocytes % (Manual) Seg Neutrophils # Lymphocytes # (Manual) PT INR APTT 79.0 H* D-Dimer Heparin Anti-Xa Level POC ABG pH 7.494 H POC ABG pCO2 POC ABG pO2 155 H Sodium Potassium Chloride Carbon Dioxide BUN Creatinine Glucose POC Glucose 271 H Lactic Acid Calcium Magnesium AST Alkaline Phosphatase Total Creatine Kinase CK-MB (CK-2) Troponin T C-Reactive Protein Total Protein Albumin Cholesterol LDL Cholesterol Direct HDL Cholesterol Free T4 Urine WBC (Auto) Urine Creatinine Urine Total Protein Crossmatch 08/15/18 08/15/18 08/15/18 12:10 15:31 17:27 WBC RBC Hgb Hct MCHC RDW Lymph % (Auto) [place] % (Auto) Lymph # [place] # Seg Neutrophils % Lymphocytes % (Manual) Seg Neutrophils # Lymphocytes # (Manual) PT INR APTT D-Dimer Heparin Anti-Xa Level POC ABG pH POC ABG pCO2 POC ABG pO2 Sodium Potassium Chloride Carbon Dioxide BUN Creatinine Glucose POC Glucose 301 H 287 H Lactic Acid Calcium Magnesium AST Alkaline Phosphatase Total Creatine Kinase CK-MB (CK-2) Troponin T C-Reactive Protein Total Protein Albumin Cholesterol LDL Cholesterol Direct HDL Cholesterol Free T4 Urine WBC (Auto) Urine Creatinine Urine Total Protein Crossmatch See Detail 08/15/18 08/15/18 08/16/18 21:41 23:45 04:13 WBC RBC Hgb Hct MCHC RDW Lymph % (Auto) [place] % (Auto) Lymph # [place] # Seg Neutrophils % Lymphocytes % (Manual) Seg Neutrophils # Lymphocytes # (Manual) PT INR APTT D-Dimer Heparin Anti-Xa Level 0.19 L POC ABG pH POC ABG pCO2 32.1 L POC ABG pO2 107 H Sodium Potassium Chloride Carbon Dioxide BUN Creatinine Glucose POC Glucose 163 H Lactic Acid Calcium Magnesium AST Alkaline Phosphatase Total Creatine Kinase CK-MB (CK-2) Troponin T C-Reactive Protein Total Protein Albumin Cholesterol LDL Cholesterol Direct HDL Cholesterol Free T4 Urine WBC (Auto) Urine Creatinine Urine Total Protein Crossmatch 08/16/18 08/16/18 08/16/18 04:50 05:28 11:30 WBC RBC 2.67 L Hgb 8.1 L Hct 23.4 L MCHC 35 H RDW 18.3 H Lymph % (Auto) [place] % (Auto) Lymph # [place] # Seg Neutrophils % Lymphocytes % (Manual) Seg Neutrophils # Lymphocytes # (Manual) PT INR APTT D-Dimer Heparin Anti-Xa Level 0.19 L POC ABG pH POC ABG pCO2 POC ABG pO2 Sodium Potassium Chloride Carbon Dioxide BUN Creatinine Glucose POC Glucose 141 H Lactic Acid Calcium Magnesium AST Alkaline Phosphatase Total Creatine Kinase CK-MB (CK-2) Troponin T C-Reactive Protein Total Protein Albumin Cholesterol LDL Cholesterol Direct HDL Cholesterol Free T4 Urine WBC (Auto) Urine Creatinine Urine Total Protein Crossmatch 08/16/18 08/16/18 08/16/18 11:30 12:00 12:01 WBC RBC Hgb Hct MCHC RDW Lymph % (Auto) [place] % (Auto) Lymph # [place] # Seg Neutrophils % Lymphocytes % (Manual) Seg Neutrophils # Lymphocytes # (Manual) PT INR APTT D-Dimer Heparin Anti-Xa Level 0.15 L POC ABG pH POC ABG pCO2 POC ABG pO2 Sodium Potassium Chloride 107.8 H Carbon Dioxide 21 L BUN 47 H Creatinine 1.6 H Glucose 221 H POC Glucose 267 H Lactic Acid Calcium 6.9 L Magnesium AST Alkaline Phosphatase Total Creatine Kinase CK-MB (CK-2) Troponin T C-Reactive Protein Total Protein Albumin Cholesterol LDL Cholesterol Direct HDL Cholesterol Free T4 Urine WBC (Auto) Urine Creatinine Urine Total Protein Crossmatch 08/16/18 08/16/18 08/16/18 17:23 20:01 23:13 WBC RBC Hgb Hct MCHC RDW Lymph % (Auto) [place] % (Auto) Lymph # [place] # Seg Neutrophils % Lymphocytes % (Manual) Seg Neutrophils # Lymphocytes # (Manual) PT INR APTT D-Dimer Heparin Anti-Xa Level 0.26 L POC ABG pH POC ABG pCO2 POC ABG pO2 Sodium Potassium Chloride Carbon Dioxide BUN Creatinine Glucose POC Glucose 245 H 256 H Lactic Acid Calcium Magnesium AST Alkaline Phosphatase Total Creatine Kinase CK-MB (CK-2) Troponin T C-Reactive Protein Total Protein Albumin Cholesterol LDL Cholesterol Direct HDL Cholesterol Free T4 Urine WBC (Auto) Urine Creatinine Urine Total Protein Crossmatch 08/17/18 08/17/18 08/17/18 04:29 04:55 05:34 WBC RBC Hgb 8.2 L Hct 24.3 L MCHC RDW Lymph % (Auto) [place] % (Auto) Lymph # [place] # Seg Neutrophils % Lymphocytes % (Manual) Seg Neutrophils # Lymphocytes # (Manual) PT INR APTT D-Dimer Heparin Anti-Xa Level POC ABG pH POC ABG pCO2 32.4 L POC ABG pO2 108 H Sodium Potassium Chloride Carbon Dioxide BUN Creatinine Glucose POC Glucose 268 H Lactic Acid Calcium Magnesium AST Alkaline Phosphatase Total Creatine Kinase CK-MB (CK-2) Troponin T C-Reactive Protein Total Protein Albumin Cholesterol LDL Cholesterol Direct HDL Cholesterol Free T4 Urine WBC (Auto) Urine Creatinine Urine Total Protein Crossmatch 08/17/18 08/17/18 08/17/18 11:54 13:44 17:24 WBC RBC Hgb Hct MCHC RDW Lymph % (Auto) [place] % (Auto) Lymph # [place] # Seg Neutrophils % Lymphocytes % (Manual) Seg Neutrophils # Lymphocytes # (Manual) PT INR APTT D-Dimer Heparin Anti-Xa Level POC ABG pH POC ABG pCO2 32.7 L POC ABG pO2 142 H Sodium Potassium Chloride Carbon Dioxide BUN Creatinine Glucose POC Glucose 295 H 283 H Lactic Acid Calcium Magnesium AST Alkaline Phosphatase Total Creatine Kinase CK-MB (CK-2) Troponin T C-Reactive Protein Total Protein Albumin Cholesterol LDL Cholesterol Direct HDL Cholesterol Free T4 Urine WBC (Auto) Urine Creatinine Urine Total Protein Crossmatch 08/18/18 08/18/18 08/18/18 00:05 00:59 04:15 WBC RBC Hgb Hct MCHC RDW Lymph % (Auto) [place] % (Auto) Lymph # [place] # Seg Neutrophils % Lymphocytes % (Manual) Seg Neutrophils # Lymphocytes # (Manual) PT INR APTT D-Dimer Heparin Anti-Xa Level POC ABG pH POC ABG pCO2 POC ABG pO2 115 H Sodium Potassium Chloride Carbon Dioxide BUN Creatinine Glucose POC Glucose 247 H 251 H Lactic Acid Calcium Magnesium AST Alkaline Phosphatase Total Creatine Kinase CK-MB (CK-2) Troponin T C-Reactive Protein Total Protein Albumin Cholesterol LDL Cholesterol Direct HDL Cholesterol Free T4 Urine WBC (Auto) Urine Creatinine Urine Total Protein Crossmatch 08/18/18 08/18/18 08/18/18 05:02 12:20 17:51 WBC RBC Hgb Hct MCHC RDW Lymph % (Auto) [place] % (Auto) Lymph # [place] # Seg Neutrophils % Lymphocytes % (Manual) Seg Neutrophils # Lymphocytes # (Manual) PT INR APTT D-Dimer Heparin Anti-Xa Level POC ABG pH POC ABG pCO2 POC ABG pO2 Sodium Potassium Chloride Carbon Dioxide BUN Creatinine Glucose POC Glucose 282 H 209 H 261 H Lactic Acid Calcium Magnesium AST Alkaline Phosphatase Total Creatine Kinase CK-MB (CK-2) Troponin T C-Reactive Protein Total Protein Albumin Cholesterol LDL Cholesterol Direct HDL Cholesterol Free T4 Urine WBC (Auto) Urine Creatinine Urine Total Protein Crossmatch 08/18/18 08/19/18 08/19/18 23:30 04:54 05:16 WBC RBC 2.62 L Hgb 7.5 L Hct 23.1 L MCHC RDW 18.1 H Lymph % (Auto) [place] % (Auto) Lymph # [place] # Seg Neutrophils % Lymphocytes % (Manual) Seg Neutrophils # Lymphocytes # (Manual) PT INR APTT D-Dimer Heparin Anti-Xa Level POC ABG pH POC ABG pCO2 POC ABG pO2 58 L Sodium Potassium Chloride Carbon Dioxide BUN Creatinine Glucose POC Glucose 231 H Lactic Acid Calcium Magnesium AST Alkaline Phosphatase Total Creatine Kinase CK-MB (CK-2) Troponin T C-Reactive Protein Total Protein Albumin Cholesterol LDL Cholesterol Direct HDL Cholesterol Free T4 Urine WBC (Auto) Urine Creatinine Urine Total Protein Crossmatch 08/19/18 08/19/18 08/19/18 05:16 05:40 11:56 WBC RBC Hgb Hct MCHC RDW Lymph % (Auto) [place] % (Auto) Lymph # [place] # Seg Neutrophils % Lymphocytes % (Manual) Seg Neutrophils # Lymphocytes # (Manual) PT INR APTT D-Dimer Heparin Anti-Xa Level POC ABG pH POC ABG pCO2 POC ABG pO2 Sodium 152 H D Potassium Chloride 118.7 H Carbon Dioxide BUN 38 H Creatinine Glucose 220 H POC Glucose 227 H 213 H Lactic Acid Calcium 8.1 L D Magnesium AST Alkaline Phosphatase Total Creatine Kinase CK-MB (CK-2) Troponin T C-Reactive Protein Total Protein Albumin Cholesterol LDL Cholesterol Direct HDL Cholesterol Free T4 Urine WBC (Auto) Urine Creatinine Urine Total Protein Crossmatch 08/19/18 08/19/18 08/20/18 18:37 23:32 04:38 WBC RBC Hgb Hct MCHC RDW Lymph % (Auto) [place] % (Auto) Lymph # [place] # Seg Neutrophils % Lymphocytes % (Manual) Seg Neutrophils # Lymphocytes # (Manual) PT INR APTT D-Dimer Heparin Anti-Xa Level POC ABG pH POC ABG pCO2 POC ABG pO2 140 H Sodium Potassium Chloride Carbon Dioxide BUN Creatinine Glucose POC Glucose 227 H 245 H Lactic Acid Calcium Magnesium AST Alkaline Phosphatase Total Creatine Kinase CK-MB (CK-2) Troponin T C-Reactive Protein Total Protein Albumin Cholesterol LDL Cholesterol Direct HDL Cholesterol Free T4 Urine WBC (Auto) Urine Creatinine Urine Total Protein Crossmatch 08/20/18 08/20/18 08/20/18 05:31 05:37 05:37 WBC RBC 2.60 L Hgb 7.5 L Hct 22.9 L MCHC RDW 18.4 H Lymph % (Auto) [place] % (Auto) Lymph # [place] # Seg Neutrophils % Lymphocytes % (Manual) Seg Neutrophils # Lymphocytes # (Manual) PT INR APTT D-Dimer Heparin Anti-Xa Level POC ABG pH POC ABG pCO2 POC ABG pO2 Sodium 150 H Potassium Chloride 115.6 H Carbon Dioxide BUN 38 H Creatinine Glucose 276 H POC Glucose 266 H Lactic Acid Calcium 7.9 L Magnesium AST Alkaline Phosphatase Total Creatine Kinase CK-MB (CK-2) Troponin T C-Reactive Protein Total Protein Albumin Cholesterol LDL Cholesterol Direct HDL Cholesterol Free T4 Urine WBC (Auto) Urine Creatinine Urine Total Protein Crossmatch 08/20/18 08/20/18 08/20/18 14:01 18:20 23:11 WBC RBC Hgb Hct MCHC RDW Lymph % (Auto) [place] % (Auto) Lymph # [place] # Seg Neutrophils % Lymphocytes % (Manual) Seg Neutrophils # Lymphocytes # (Manual) PT INR APTT D-Dimer Heparin Anti-Xa Level POC ABG pH POC ABG pCO2 POC ABG pO2 Sodium Potassium Chloride Carbon Dioxide BUN Creatinine Glucose POC Glucose 305 H 271 H 218 H Lactic Acid Calcium Magnesium AST Alkaline Phosphatase Total Creatine Kinase CK-MB (CK-2) Troponin T C-Reactive Protein Total Protein Albumin Cholesterol LDL Cholesterol Direct HDL Cholesterol Free T4 Urine WBC (Auto) Urine Creatinine Urine Total Protein Crossmatch 08/21/18 08/21/18 08/21/18 04:41 04:41 06:20 WBC RBC 2.65 L Hgb 7.6 L Hct 23.3 L MCHC RDW 19.1 H Lymph % (Auto) [place] % (Auto) Lymph # [place] # Seg Neutrophils % Lymphocytes % (Manual) Seg Neutrophils # Lymphocytes # (Manual) PT INR APTT D-Dimer Heparin Anti-Xa Level POC ABG pH POC ABG pCO2 POC ABG pO2 Sodium 150 H Potassium Chloride 117.8 H Carbon Dioxide BUN 37 H Creatinine Glucose 233 H POC Glucose 262 H Lactic Acid Calcium 7.9 L Magnesium AST Alkaline Phosphatase Total Creatine Kinase CK-MB (CK-2) Troponin T C-Reactive Protein Total Protein Albumin Cholesterol LDL Cholesterol Direct HDL Cholesterol Free T4 Urine WBC (Auto) Urine Creatinine Urine Total Protein Crossmatch 08/21/18 08/21/18 08/21/18 10:18 12:04 12:36 WBC RBC Hgb Hct MCHC RDW Lymph % (Auto) [place] % (Auto) Lymph # [place] # Seg Neutrophils % Lymphocytes % (Manual) Seg Neutrophils # Lymphocytes # (Manual) PT INR APTT D-Dimer Heparin Anti-Xa Level POC ABG pH POC ABG pCO2 POC ABG pO2 Sodium Potassium Chloride Carbon Dioxide BUN Creatinine Glucose POC Glucose 256 H 245 H 255 H Lactic Acid Calcium Magnesium AST Alkaline Phosphatase Total Creatine Kinase CK-MB (CK-2) Troponin T C-Reactive Protein Total Protein Albumin Cholesterol LDL Cholesterol Direct HDL Cholesterol Free T4 Urine WBC (Auto) Urine Creatinine Urine Total Protein Crossmatch 08/21/18 08/21/18 08/22/18 17:36 23:29 05:01 WBC RBC Hgb Hct MCHC RDW Lymph % (Auto) [place] % (Auto) Lymph # [place] # Seg Neutrophils % Lymphocytes % (Manual) Seg Neutrophils # Lymphocytes # (Manual) PT INR APTT D-Dimer Heparin Anti-Xa Level POC ABG pH 7.466 H POC ABG pCO2 33.8 L POC ABG pO2 111 H Sodium Potassium Chloride Carbon Dioxide BUN Creatinine Glucose POC Glucose 263 H 268 H Lactic Acid Calcium Magnesium AST Alkaline Phosphatase Total Creatine Kinase CK-MB (CK-2) Troponin T C-Reactive Protein Total Protein Albumin Cholesterol LDL Cholesterol Direct HDL Cholesterol Free T4 Urine WBC (Auto) Urine Creatinine Urine Total Protein Crossmatch 08/22/18 08/22/18 08/22/18 05:05 12:05 12:15 WBC RBC Hgb Hct MCHC RDW Lymph % (Auto) [place] % (Auto) Lymph # [place] # Seg Neutrophils % Lymphocytes % (Manual) Seg Neutrophils # Lymphocytes # (Manual) PT INR APTT D-Dimer Heparin Anti-Xa Level POC ABG pH POC ABG pCO2 POC ABG pO2 Sodium 147 H Potassium Chloride 113.2 H Carbon Dioxide BUN 36 H Creatinine Glucose 249 H POC Glucose 256 H 228 H Lactic Acid Calcium 8.2 L Magnesium AST Alkaline Phosphatase Total Creatine Kinase CK-MB (CK-2) Troponin T C-Reactive Protein Total Protein Albumin Cholesterol LDL Cholesterol Direct HDL Cholesterol Free T4 Urine WBC (Auto) Urine Creatinine Urine Total Protein Crossmatch 08/22/18 08/23/18 08/23/18 17:30 00:03 05:05 WBC RBC Hgb Hct MCHC RDW Lymph % (Auto) [place] % (Auto) Lymph # [place] # Seg Neutrophils % Lymphocytes % (Manual) Seg Neutrophils # Lymphocytes # (Manual) PT INR APTT D-Dimer Heparin Anti-Xa Level POC ABG pH POC ABG pCO2 POC ABG pO2 Sodium Potassium Chloride Carbon Dioxide BUN Creatinine Glucose POC Glucose 291 H 259 H 247 H Lactic Acid Calcium Magnesium AST Alkaline Phosphatase Total Creatine Kinase CK-MB (CK-2) Troponin T C-Reactive Protein Total Protein Albumin Cholesterol LDL Cholesterol Direct HDL Cholesterol Free T4 Urine WBC (Auto) Urine Creatinine Urine Total Protein Crossmatch 08/23/18 08/23/18 08/23/18 05:14 12:29 17:21 WBC RBC Hgb Hct MCHC RDW Lymph % (Auto) [place] % (Auto) Lymph # [place] # Seg Neutrophils % Lymphocytes % (Manual) Seg Neutrophils # Lymphocytes # (Manual) PT INR APTT D-Dimer Heparin Anti-Xa Level POC ABG pH POC ABG pCO2 POC ABG pO2 Sodium Potassium Chloride Carbon Dioxide BUN Creatinine Glucose POC Glucose 208 H 138 H 175 H Lactic Acid Calcium Magnesium AST Alkaline Phosphatase Total Creatine Kinase CK-MB (CK-2) Troponin T C-Reactive Protein Total Protein Albumin Cholesterol LDL Cholesterol Direct HDL Cholesterol Free T4 Urine WBC (Auto) Urine Creatinine Urine Total Protein Crossmatch 08/23/18 08/24/18 08/24/18 23:36 01:00 05:50 WBC RBC 2.92 L 2.90 L Hgb 8.3 L 8.2 L Hct 25.4 L 25.2 L MCHC RDW 18.9 H 18.6 H Lymph % (Auto) [place] % (Auto) 9.2 H Lymph # [place] # Seg Neutrophils % Lymphocytes % (Manual) Seg Neutrophils # Lymphocytes # (Manual) PT INR APTT D-Dimer Heparin Anti-Xa Level POC ABG pH POC ABG pCO2 POC ABG pO2 Sodium Potassium Chloride Carbon Dioxide BUN Creatinine Glucose POC Glucose 163 H Lactic Acid Calcium Magnesium AST Alkaline Phosphatase Total Creatine Kinase CK-MB (CK-2) Troponin T C-Reactive Protein Total Protein Albumin Cholesterol LDL Cholesterol Direct HDL Cholesterol Free T4 Urine WBC (Auto) Urine Creatinine Urine Total Protein Crossmatch 08/24/18 08/24/18 08/24/18 05:50 12:26 18:37 WBC RBC Hgb Hct MCHC RDW Lymph % (Auto) [place] % (Auto) Lymph # [place] # Seg Neutrophils % Lymphocytes % (Manual) Seg Neutrophils # Lymphocytes # (Manual) PT INR APTT D-Dimer Heparin Anti-Xa Level POC ABG pH POC ABG pCO2 POC ABG pO2 Sodium 147 H Potassium Chloride 113.6 H Carbon Dioxide BUN 33 H Creatinine Glucose 210 H POC Glucose 223 H 166 H Lactic Acid Calcium 8.3 L Magnesium AST Alkaline Phosphatase Total Creatine Kinase CK-MB (CK-2) Troponin T C-Reactive Protein Total Protein Albumin Cholesterol LDL Cholesterol Direct HDL Cholesterol Free T4 Urine WBC (Auto) Urine Creatinine Urine Total Protein Crossmatch 08/24/18 08/25/18 08/25/18 23:47 04:55 04:55 WBC RBC 2.94 L Hgb 8.4 L Hct 25.1 L MCHC RDW 18.2 H Lymph % (Auto) [place] % (Auto) Lymph # [place] # Seg Neutrophils % Lymphocytes % (Manual) Seg Neutrophils # Lymphocytes # (Manual) PT INR APTT D-Dimer Heparin Anti-Xa Level POC ABG pH POC ABG pCO2 POC ABG pO2 Sodium Potassium Chloride 110.2 H Carbon Dioxide BUN 30 H Creatinine Glucose POC Glucose 126 H Lactic Acid Calcium 8.1 L Magnesium AST Alkaline Phosphatase Total Creatine Kinase CK-MB (CK-2) Troponin T C-Reactive Protein Total Protein Albumin Cholesterol LDL Cholesterol Direct HDL Cholesterol Free T4 Urine WBC (Auto) Urine Creatinine Urine Total Protein Crossmatch 08/25/18 08/26/18 08/26/18 12:40 04:39 04:39 WBC RBC 2.96 L Hgb 8.3 L Hct 25.7 L MCHC RDW 18.2 H Lymph % (Auto) 10.5 L Sumner % (Auto) 9.3 H Lymph # 0.8 L [place] # Seg Neutrophils % 77.0 H Lymphocytes % (Manual) Seg Neutrophils # Lymphocytes # (Manual) PT INR APTT D-Dimer Heparin Anti-Xa Level POC ABG pH POC ABG pCO2 POC ABG pO2 Sodium 147 H Potassium Chloride 113.5 H Carbon Dioxide BUN 27 H Creatinine 0.7 L Glucose 106 H POC Glucose Lactic Acid Calcium 8.0 L Magnesium AST Alkaline Phosphatase Total Creatine Kinase CK-MB (CK-2) Troponin T C-Reactive Protein Total Protein Albumin Cholesterol LDL Cholesterol Direct HDL Cholesterol Free T4 Urine WBC (Auto) > 182.0 H Urine Creatinine Urine Total Protein Crossmatch 08/26/18 08/26/18 08/26/18 05:27 09:00 09:54 WBC RBC Hgb Hct MCHC RDW Lymph % (Auto) [place] % (Auto) Lymph # [place] # Seg Neutrophils % Lymphocytes % (Manual) Seg Neutrophils # Lymphocytes # (Manual) PT INR APTT D-Dimer Heparin Anti-Xa Level POC ABG pH POC ABG pCO2 POC ABG pO2 Sodium Potassium Chloride Carbon Dioxide BUN Creatinine Glucose POC Glucose 120 H 170 H Lactic Acid Calcium Magnesium AST Alkaline Phosphatase Total Creatine Kinase CK-MB (CK-2) Troponin T C-Reactive Protein Total Protein Albumin Cholesterol LDL Cholesterol Direct HDL Cholesterol Free T4 0.51 L Urine WBC (Auto) Urine Creatinine Urine Total Protein Crossmatch
--- NOTE | 2018-08-26 15:22 | Progress Note ---
Assessment and Plan 77 yo M s/p percutaneous tracheostomy POD 1 Plan; 1. wean vent per ICU team 2. trach care 3. will s/o Thank you, please call with questions. Subjective Date of service: 08/26/18 Narrative: Pt seen and examined. No overnight events. Objective Vital Signs - 12hr 08/26/18 08/26/18 08/26/18 04:00 05:00 05:22 Temperature 97.8 F Pulse Rate 72 73 76 Pulse Rate [ 70 From Monitor] Respiratory 12 13 Rate Blood Pressure 144/64 132/59 132/59 O2 Sat by Pulse 100 100 100 Oximetry O2 Sat by Pulse Oximetry [ Assessment] 08/26/18 08/26/18 08/26/18 05:33 06:00 07:00 Temperature Pulse Rate 72 73 Pulse Rate [ From Monitor] Respiratory 11 L 11 L Rate Blood Pressure 128/57 119/64 O2 Sat by Pulse 100 100 Oximetry O2 Sat by Pulse 100 Oximetry [ Assessment] 08/26/18 08/26/18 08/26/18 07:31 08:00 08:02 Temperature 97.9 F Pulse Rate 72 72 Pulse Rate [ 70 From Monitor] Respiratory 12 11 L Rate Blood Pressure 114/65 129/58 O2 Sat by Pulse 100 100 Oximetry O2 Sat by Pulse Oximetry [ Assessment] 08/26/18 08/26/18 08/26/18 08:22 09:00 10:00 Temperature Pulse Rate 69 70 70 Pulse Rate [ From Monitor] Respiratory 12 Rate Blood Pressure 143/64 124/60 O2 Sat by Pulse 100 100 Oximetry O2 Sat by Pulse Oximetry [ Assessment] 08/26/18 08/26/18 08/26/18 10:01 11:00 12:00 Temperature 98.1 F Pulse Rate 68 67 67 Pulse Rate [ 70 From Monitor] Respiratory 12 12 12 Rate Blood Pressure 137/63 137/64 125/65 O2 Sat by Pulse 100 100 100 Oximetry O2 Sat by Pulse Oximetry [ Assessment] 08/26/18 12:54 Temperature Pulse Rate 68 Pulse Rate [ From Monitor] Respiratory Rate Blood Pressure 122/60 O2 Sat by Pulse 100 Oximetry O2 Sat by Pulse Oximetry [ Assessment] - General physical appearance Narrative Exam: Gen; Unresponsive on vent ENT: tracheostomy in place, no bleeding. CV: s1, S2+ Resp; on vent - Labs 08/26/18 04:39 08/26/18 04:39 Diabetes panel 08/26/18 Range/Units 04:39 Sodium 147 H (137-145) mmol/L Potassium 3.6 (3.6-5.0) mmol/L Chloride 113.5 H (98-107) mmol/L Carbon Dioxide 26 (22-30) mmol/L BUN 27 H (9-20) mg/dL Creatinine 0.7 L (0.8-1.5) mg/dL Glucose 106 H (75-100) mg/dL Calcium 8.0 L (8.4-10.2) mg/dL Thyroid panel 08/26/18 Range/Units 09:00 TSH 0.973 (0.270-4.200) mlU/mL Calcium panel 08/26/18 Range/Units 04:39 Calcium 8.0 L (8.4-10.2) mg/dL Pituitary panel 08/26/18 08/26/18 Range/Units 04:39 09:00 Sodium 147 H (137-145) mmol/L Potassium 3.6 (3.6-5.0) mmol/L Chloride 113.5 H (98-107) mmol/L Carbon Dioxide 26 (22-30) mmol/L BUN 27 H (9-20) mg/dL Creatinine 0.7 L (0.8-1.5) mg/dL Glucose 106 H (75-100) mg/dL Calcium 8.0 L (8.4-10.2) mg/dL TSH 0.973 (0.270-4.200) mlU/mL Adrenal panel 08/26/18 Range/Units 04:39 Sodium 147 H (137-145) mmol/L Potassium 3.6 (3.6-5.0) mmol/L Chloride 113.5 H (98-107) mmol/L Carbon Dioxide 26 (22-30) mmol/L BUN 27 H (9-20) mg/dL Creatinine 0.7 L (0.8-1.5) mg/dL Glucose 106 H (75-100) mg/dL Calcium 8.0 L (8.4-10.2) mg/dL
[2018-08-26] MEDS: LOVENOX SUB-Q SCH (21:45)
[2018-08-27] MEDS: HumaLOG SUB-Q SCH ×6 (02:00→22:03)
[2018-08-27 07:03] LABS: BUN/Creatinine Ratio 34; Blood Urea Nitrogen 24 mg/dL (9-20); Calcium 7.8 mg/dL (8.4-10.2); Hemolysis Index 0
[2018-08-27] MEDS: D5W 1,000 ML IV SCH (10:21)
[2018-08-27] MEDS: PROVIGIL PO SCH (10:21)
[2018-08-27] MEDS: ASPIRIN PO SCH (10:22)
[2018-08-27] MEDS: SODIUM CHLORIDE FLUSH SYRINGE 10 ML IV SCH ×2 (10:22→21:05)
[2018-08-27] MEDS: PEPCID PO SCH ×2 (10:22→21:06)
[2018-08-27] MEDS: KEPPRA PO SCH ×2 (10:22→21:06)
--- NOTE | 2018-08-27 13:57 | Progress Note ---
Assessment and Plan Assessment and plan: Cardiopulmonary arrest x 3: Most likely related to mucus plugging >NSTEMI, lead ing to severe irreversible brain damage: supportive care, CCM following. Acute on chronic respiratory failure on mechanical ventilation >96 hours: Trach has been removed when patient was orally intubated, continue ventilator management per pulmonology. Tracheostomy was replaced by surgery on 08/25/18. Tracheostomy care, airway clearance, secretion management Right pneumothorax, resolved: Status post chest tube, mgt per pulmonology Hypoxic encephalopathy: neurology consult appreciated, poor prognosis, poor likelihood of recovery, preserved brain stem function otherwise unresponsive. EEG is suggestive hypoxic encephalopathy. Hypernatremia/free water deficits, Continue free water via G-tube, sp hypotonic IV solution, monitor bmp closely Acute kidney injury likely due to ATN Nephrology following, continue IV fluid, avoid renal toxic agents NSTEMI: treated with IV heparin, asa, statin, no bblocker due to bradycardia, hypotension, Cardiology is following Severe protein calorie malnutrition: Dietitian consulted, continue tube feedings UTI/sepsis: Continue antibiotics, follow-up urine cultures-->no growth x 48 hours Type 2 dm with persistent hyperglycemia: cont insulins and adjust according, on tube feedings Anemia: s/p transfusion Urinary retention: continue douglass, condom cath DVT prophylaxis; patient is fully anticoagulated on heparin drip The high probability of a clinically significant, sudden or life threatening deterioration of the [neurology and respiratory] system(s) required my full and direct attention, intervention and personal management. The aggregate critical care time was [31] minutes. This time is in addition to time spent performing reported procedures but includes the following: [x] Data Review and interpretation [x] Patient assessment and monitoring of vital signs [x] Documentation [x] Medication orders and management History Interval history: Patient is a 77 yo man from [facility] with a history of respiratory failure, CVA with tracheostomy and Gtube who presented to [facility] ED following cardiac arrest after being found unresponsive at the [facility]. Time down is unknown per records. The patient is on the vent and unresponsive, all history is obtained from the chart. Patient had multiple episodes of arrest/pulselessness. He has been on the vent since then without any improvement. Per ER notes the patient was bagged via tracheostomy which continued to have low tidal volumes and so the patient with orally intubated after which tidal volumes improved. I spoke with and daughter, Felicita and they believe that he aspirated with a mucus plug that caused the cardiopulmonary arrest not NSTEMI.. Initially, he went to [facility] may 05 to june 05, he had fluid on brain and multiple strokes per family and they drained the fluid off the brain. The trach was placed at [facility] and patient went to [facility], x 7 weeks (trach was changed where capped was placed), he was doing well, talking and sitting up. Then he went to [facility], August 03 and his oral care was horrible. The trach care was horrible and not enough suctioning done. Mouth with copious amount of crud. Then on August 12, Friday, he had voice changing and mucus plugging. Followed by respiratory arrest. The [place] brain flow scan showed reduced blood flow. Patient had evaluation by neurology who reports patient with intact brainstem function. Hospitalist Physical - Constitutional Vitals: Temp Pulse Resp BP Pulse Ox 97.8 F 64 12 158/67 100 08/27/18 12:00 08/27/18 12:02 08/27/18 11:00 08/27/18 12:02 08/27/18 12:34 General appearance: Present: other (twitching, nonresponsive, intubated) - EENT Eyes: Present: PERRL, EOM intact ENT: hearing intact, clear oral mucosa, dentition normal - Neck Neck: Present: supple, normal ROM - Respiratory Respiratory effort: normal Respiratory: bilateral: CTA - Cardiovascular Rhythm: regular Heart Sounds: Present: S1 & S2. Absent: gallop, rub - Extremities Extremities: no ischemia, No edema, Full ROM - Abdominal General gastrointestinal: soft, non-tender, non-distended, normal bowel sounds - Integumentary Integumentary: Present: clear, warm, dry - Neurologic Neurologic: other (preserved brain stem function otherwise unresponsive) Results - Labs CBC & Chem 7: 08/26/18 04:39 08/27/18 06:30 Labs: Laboratory Last Values WBC 7.6 K/mm3 (4.5-11.0) 08/26/18 04:39 RBC 2.96 M/mm3 (3.65-5.03) L 08/26/18 04:39 Hgb 8.3 gm/dl (11.8-15.2) L 08/26/18 04:39 Hct 25.7 % (35.5-45.6) L 08/26/18 04:39 MCV 87 fl (84-94) 08/26/18 04:39 MCH 28 pg (28-32) 08/26/18 04:39 MCHC 32 % (32-34) 08/26/18 04:39 RDW 18.2 % (13.2-15.2) H 08/26/18 04:39 Plt Count 305 K/mm3 (140-440) 08/26/18 04:39 Lymph % (Auto) 10.5 % (13.4-35.0) L 08/26/18 04:39 Bent % (Auto) 9.3 % (0.0-7.3) H 08/26/18 04:39 Eos % (Auto) 2.6 % (0.0-4.3) 08/26/18 04:39 Baso % (Auto) 0.6 % (0.0-1.8) 08/26/18 04:39 Lymph # 0.8 K/mm3 (1.2-5.4) L 08/26/18 04:39 Bent # 0.7 K/mm3 (0.0-0.8) 08/26/18 04:39 Eos # 0.2 K/mm3 (0.0-0.4) 08/26/18 04:39 Baso # 0.0 K/mm3 (0.0-0.1) 08/26/18 04:39 Add Manual Diff Complete 08/12/18 21:44 Total Counted 100 08/12/18 21:44 Seg Neutrophils % 77.0 % (40.0-70.0) H 08/26/18 04:39 Seg Neuts % (Manual) 44.0 % (40.0-70.0) 08/12/18 21:44 0 % 08/12/18 21:44 48.0 % (13.4-35.0) H 08/12/18 21:44 Reactive Lymphs % (Man) 0 % 08/12/18 21:44 2.0 % (0.0-7.3) 08/12/18 21:44 1.0 % (0.0-4.3) 08/12/18 21:44 0 % (0.0-1.8) 08/12/18 21:44 1.0 % 08/12/18 21:44 4.0 % 08/12/18 21:44 0 % 08/12/18 21:44 0 % 08/12/18 21:44 Nucleated RBC % Not Reportable 08/12/18 21:44 Seg Neutrophils # 5.8 K/mm3 (1.8-7.7) 08/26/18 04:39 Seg Neutrophils # Man 6.8 K/mm3 (1.8-7.7) 08/12/18 21:44 Band Neutrophils # 0.0 K/mm3 08/12/18 21:44 7.4 K/mm3 (1.2-5.4) H 08/12/18 21:44 Abs React Lymphs (Man) 0.0 K/mm3 08/12/18 21:44 0.3 K/mm3 (0.0-0.8) 08/12/18 21:44 0.2 K/mm3 (0.0-0.4) 08/12/18 21:44 0.0 K/mm3 (0.0-0.1) 08/12/18 21:44 0.2 K/mm3 08/12/18 21:44 0.6 K/mm3 08/12/18 21:44 0.0 K/mm3 08/12/18 21:44 Blast Cells # 0.0 K/mm3 08/12/18 21:44 WBC Morphology Not Reportable 08/12/18 21:44 Hypersegmented Neuts Not Reportable 08/12/18 21:44 Hyposegmented Neuts Not Reportable 08/12/18 21:44 Hypogranular Neuts Not Reportable 08/12/18 21:44 Not Reportable 08/12/18 21:44 Not Reportable 08/12/18 21:44 Not Reportable 08/12/18 21:44 Not Reportable 08/12/18 21:44 Not Reportable 08/12/18 21:44 Not Reportable 08/12/18 21:44 Consistent w auto 08/12/18 21:44 Not Reportable 08/12/18 21:44 Plt Clumps, EDTA Not Reportable 08/12/18 21:44 Not Reportable 08/12/18 21:44 Not Reportable 08/12/18 21:44 Not Reportable 08/12/18 21:44 Plt Morphology Comment Not Reportable 08/12/18 21:44 RBC Morphology Not Reportable 08/12/18 21:44 Dimorphic RBCs Not Reportable 08/12/18 21:44 Not Reportable 08/12/18 21:44 Not Reportable 08/12/18 21:44 Not Reportable 08/12/18 21:44 Few 08/12/18 21:44 Not Reportable 08/12/18 21:44 Not Reportable 08/12/18 21:44 Not Reportable 08/12/18 21:44 Not Reportable 08/12/18 21:44 Not Reportable 08/12/18 21:44 Not Reportable 08/12/18 21:44 Not Reportable 08/12/18 21:44 Few 08/12/18 21:44 Not Reportable 08/12/18 21:44 Not Reportable 08/12/18 21:44 Not Reportable 08/12/18 21:44 Not Reportable 08/12/18 21:44 Not Reportable 08/12/18 21:44 Not Reportable 08/12/18 21:44 Few 08/12/18 21:44 Acanthocytes (Spur) Not Reportable 08/12/18 21:44 Rouleaux Not Reportable 08/12/18 21:44 Not Reportable 08/12/18 21:44 Not Reportable 08/12/18 21:44 Not Reportable 08/12/18 21:44 Not Reportable 08/12/18 21:44 Hem Pathologist Commnt No 08/12/18 21:44 PT 16.5 Sec. (12.2-14.9) H 08/13/18 00:47 INR 1.25 (0.87-1.13) H 08/13/18 00:47 APTT 79.0 Sec. (24.2-36.6) H* 08/15/18 06:35 2742.50 ng/mlDDU (0-234) H 08/13/18 20:07 Heparin Anti-Xa Level 0.26 U.I./ml (0.3-0.7) L 08/16/18 20:01 POC ABG pH 7.427 (7.35-7.45) 08/24/18 00:10 POC ABG pCO2 35.5 (35-45) 08/24/18 00:10 POC ABG pO2 91 (80-105) 08/24/18 00:10 POC ABG HCO3 23.4 (22-26 mml/L) 08/24/18 00:10 POC ABG Total CO2 24 (23-27mmol/L) 08/24/18 00:10 POC ABG O2 Sat 97 08/24/18 00:10 POC ABG Base Excess -1 ((-2) - (+3)mmol/L) 08/24/18 00:10 24 % 08/24/18 00:10 Sodium 150 mmol/L (137-145) H 08/27/18 06:30 Potassium 4.1 mmol/L (3.6-5.0) 08/27/18 06:30 Chloride 114.8 mmol/L (98-107) H 08/27/18 06:30 Carbon Dioxide 30 mmol/L (22-30) 08/27/18 06:30 9 mmol/L 08/27/18 06:30 BUN 24 mg/dL (9-20) H 08/27/18 06:30 0.7 mg/dL (0.8-1.5) L 08/27/18 06:30 Estimated GFR > 60 ml/min 08/27/18 06:30 34 % 08/27/18 06:30 Glucose 131 mg/dL (75-100) H 08/27/18 06:30 POC Glucose 105 (70-105) 08/27/18 11:57 Lactic Acid 2.80 mmol/L (0.7-2.0) H* 08/13/18 12:53 Calcium 7.8 mg/dL (8.4-10.2) L 08/27/18 06:30 Phosphorus 3.90 mg/dL (2.5-4.5) 08/15/18 04:05 Magnesium 2.20 mg/dL (1.7-2.3) 08/15/18 04:05 0.30 mg/dL (0.1-1.2) 08/14/18 04:03 AST 50 units/L (5-40) H 08/14/18 04:03 ALT 55 units/L (7-56) 08/14/18 04:03 219 units/L (35-129) H 08/14/18 04:03 309 units/L (55-170) H 08/13/18 10:10 CK-MB (CK-2) 4.1 ng/mL (0.0-4.0) H 08/13/18 10:10 CK-MB (CK-2) Rel Index 1.3 (0-4) 08/13/18 10:10 0.409 ng/mL (0.00-0.029) H* 08/14/18 04:03 16.90 mg/dL (0.00-1.30) H 08/13/18 12:53 6.2 g/dL (6.3-8.2) L 08/14/18 04:03 1.9 g/dL (3.9-5) L 08/14/18 04:03 0.4 % 08/14/18 04:03 Triglycerides 62 mg/dL (2-149) 08/13/18 00:32 Cholesterol 46 mg/dL (50-199) L 08/13/18 00:32 17 mg/dL (50-130) L 08/13/18 00:32 6 mg/dL (40-59) L 08/13/18 00:32 7.66 % 08/13/18 00:32 TSH 0.973 mlU/mL (0.270-4.200) 08/26/18 09:00 Free T4 0.51 ng/dL (0.76-1.46) L 08/26/18 09:00 Yellow (Yellow) 08/25/18 12:40 Turbid (Clear) 08/25/18 12:40 7.0 (5.0-7.0) 08/25/18 12:40 Ur Specific [place] 1.009 (1.003-1.030) 08/25/18 12:40 100 mg/dl mg/dL (Negative) 08/25/18 12:40 Neg mg/dL (Negative) 08/25/18 12:40 Neg mg/dL (Negative) 08/25/18 12:40 Mod (Negative) 08/25/18 12:40 Neg (Negative) 08/25/18 12:40 Neg (Negative) 08/25/18 12:40 < 2.0 mg/dL (<2.0) 08/25/18 12:40 Ur Leukocyte Esterase Lg (Negative) 08/25/18 12:40 > 182.0 /HPF (0.0-6.0) H 08/25/18 12:40 10.0 /HPF (0.0-6.0) 08/25/18 12:40 U Epithel Cells (Auto) 5.0 /HPF (0-13.0) 08/25/18 12:40 2+ /HPF (Negative) 08/13/18 00:50 3+ /HPF 08/25/18 12:40 None seen (None Seen) 08/14/18 17:20 60.9 mg/dL (0.1-20.0) H 08/14/18 17:20 32 mmol/L 08/14/18 17:20 64 mg/dL (5-11.8) H 08/14/18 17:20 Presumptive negative 08/12/18 21:30 Presumptive negative 08/12/18 21:30 Ur Barbiturates Screen Presumptive negative 08/12/18 21:30 Ur Phencyclidine Scrn Presumptive negative 08/12/18 21:30 Ur Amphetamines Screen Presumptive negative 08/12/18 21:30 U Benzodiazepines Scrn Presumptive negative 08/12/18 21:30 Presumptive negative 08/12/18 21:30 U Marijuana (THC) Screen Presumptive negative 08/12/18 21:30 Disclamer 08/12/18 21:30 Blood Type O POSITIVE 08/15/18 15:31 Antibody Screen Negative 08/15/18 15:31 Crossmatch See Detail 08/15/18 15:31 Active Medications - Current Medications Current Medications: Generic Name Dose Route Start Last Admin Trade Name Freq PRN Reason Stop Dose Admin Acetaminophen 650 mg 08/13/18 11:40 08/13/18 16:09 Tylenol PO 650 mg Q6H PRN Administration Fever >101 Lipase/Protease/Amylase 1 each 08/25/18 18:36 Pancreaze 10,500 Unit FEEDTUBE PRN PRN For Clogged Feeding Tube Aspirin 325 mg 08/17/18 10:00 08/27/18 10:22 Aspirin PO 325 mg QDAY LENCHO Administration Atorvastatin Calcium 40 mg 08/14/18 22:00 08/26/18 23:09 Lipitor PO 40 mg QHS LENCHO Administration Dextrose 50 ml 08/13/18 01:34 D50w (25gm) Syringe IV PRN PRN Hypoglycemia Enoxaparin Sodium 40 mg 08/17/18 22:00 08/26/18 21:45 Lovenox SUB-Q 40 mg QDAY@2200 LENCHO Administration Famotidine 20 mg 08/19/18 10:00 08/27/18 10:22 Pepcid PO 20 mg BID LENCHO Administration Hydrophilic Ointment 1 applic 08/13/18 12:21 Vaseline Lip Therapy TP Q2HR PRN Dry Lips Dextrose 1,000 mls @ 60 mls/hr 08/27/18 09:00 08/27/18 10:21 D5w IV 60 mls/hr DIRECT LENCHO Administration Insulin Human Lispro 0 unit 08/26/18 10:00 08/27/18 10:00 Humalog SUB-Q Not Given Q4HR [facility] Protocol Levetiracetam 500 mg 08/27/18 22:00 Keppra PO BID LENCHO Modafinil 100 mg 08/27/18 10:00 08/27/18 10:21 Provigil PO 100 mg QAM LENCHO Administration Multi-Ingred Cream/Lotion/Oil/Oint 1 applic 08/13/18 12:21 08/17/18 00:41 Artificial Tears Ophth Oint OU 1 applic Q4HR PRN Administration Dry Eye(s) Ondansetron HCl 4 mg 08/13/18 01:34 Zofran IV Q8H PRN Nausea And Vomiting Simple Syrup 15 ml 08/25/18 18:36 Simple Syrup FEEDTUBE PRN PRN Hypoglycemia Simple Syrup 30 ml 08/25/18 18:36 Simple Syrup FEEDTUBE PRN PRN Hypoglycemia Sodium Bicarbonate 325 mg 08/25/18 18:36 Sodium Bicarbonate FEEDTUBE PRN PRN For Clogged Feeding Tube Sodium Chloride 10 ml 08/13/18 10:00 08/27/18 10:22 Sodium Chloride Flush Syringe 10 Ml IV 10 ml BID LENCHO Administration Sodium Chloride 10 ml 08/13/18 01:34 Sodium Chloride Flush Syringe 10 Ml IV PRN PRN LINE FLUSH Nutrition/Malnutrition Assess - Dietary Evaluation Nutrition/Malnutrition Findings: Nutrition Notes Start: 08/13/18 15 :41 Freq: Status: Active Protocol: Document 08/27/18 09:21 LP (Rec: 08/27/18 09:28 LP [id number]) Nutrition Notes Initial or Follow up Reassessment Current Diagnosis Acute Kidney Injury,Diabetes Other Pertinent Diagnosis UTI, Hx CVA, PEG, Sacral PU, Multiple PU, Anoxic brain injury,R pneumothorax Current Diet Vital 1.2 at 60 ml/hr Labs/Tests Reviewed Pertinent Medications Reviewed Height 5 ft 8 in Weight 78.6 kg [place] Body Weight (kg) 70.00 BMI 26.3 Subjective/Other Information Pt tolerating TF at 40ml/hr so far but had 270ml residual earlier. Percent of energy/protein needs met: 64%/84% Burn Absent Trauma Absent #1 Nutrition Diagnosis Inadequate oral intake Diagnosis Progress(for reassessment Continues documentation) Is patient on ventilator? Yes Is Patient Ambulatory and/or Out of Bed No REE-([facility]-confined to bed) 1783.140 Calculation Used for Recommendations [facility] Additional Notes Protein Needs: 87-145g (1.2-2g /kg) Fluid Needs: 1 ml/kcal Nutrition Intervention Change Diet Order: TF Nutrition Support: Vital 1.2 at 60 ml/hr. Water flush of 250ml q4h for hypernatremia and 100 mls q 4 hrs once resolved. Kcal 1,728 Protein (gm) 108 Fluid (mL) 1,167 Add Supplement/Snack (indicate name/kcal Magen BID /protein ) Provides kCal: 190 Provides Protein (gm) 5 Goal #1 Meet at least 80% of calorie and protein needs via TF Anticipated Discharge Needs: TF Follow-Up By: 08/31/18 Additional Comments Follow for TF tolerance at goal
--- NOTE | 2018-08-27 14:00 | Progress Note ---
Assessment and Plan Acute hypoxemic respiratory failure on chronic. Status post cardiac arrest. Seizure disorder with breakthrough seizures. History of diabetes. History of cerebrovascular accident. Oropharyngeal dysphagia. History of seizures. (AMS is rate limiting step to safe extubation at this point) - Lantus on hold re: hypoglycemia - reduced set rate on MVS to 10/min - get abg after about 1 hour - continue Keppra for seizures with prn ativan IV for breakthrough (BUT reduced dose to 500mg IV bid) - continue provigil - continue daily SBT's as tolerated (not tolerating well) - continue bronchodilators with routine trach care and pulmonary hygiene per RT - chest tube dislodged but no recurrent pneumothorax - neurology evaluation ongoing (pupils reactive sluggishly) - sedation target for RASS 0 to -1 (daily SAT's as tolerated) - continue GI & VTE prophylaxis - continue to wean supplemental oxygen to keep O2 sats 88-90% - Lung protective strategies - VAP bundle addressed - Continue cardioprotective measures - Replete electrolytes as indicated - Continue to rest at night on full MVS - Monitor renal indices closely - Avoid nephrotoxic agents, adjust all medications for CrCL - Strict intake and output monitoring - continue enteral nutrition as tolerated - continue accuchecks with glycemic control per SSI for target glucose of 140- 180 mg/dL - Maintenance of sleep -wake cycle - Mobility as tolerated by hemodynamics - Influenza and pneumonia vaccination per protocol PROGNOSIS: GUARDED CONDITION: CRITICAL CODE STATUS: FULL CODE The high probability of a clinically significant, sudden or life-threatening deterioration of the [respiratory, neurology, renal] system(s) required my full and direct attention, intervention and personal management. The aggregate critical care time was [35] minutes without overlap. Time includes spent on; [x] Data Review and interpretation [x] Patient assessment and monitoring of vital signs [x] Documentation [x] Medication orders and management Subjective Date of service: 08/27/18 Principal diagnosis: Acute hypoxemic resp failure; S/P cardiac arrest; Seizures; DM II; H/O CVA Interval history: Patient is seen today for: Acute hypoxemic respiratory failure on chronic; Status post cardiac arrest; Seizure disorder with breakthrough seizures; History of diabetes; History of cerebrovascular accident; Oropharyngeal dysphagia; History of seizures. Seen and examined at bedside; 24hour events reviewed; nursing and respiratory care staff consulted; no adverse overnight events reported to me; remains on MVS; now s/p tracheostomy; AMS is persistent; still failing SBT's due to Apnea's ; No emesis or overt aspiration and no breakthrough seizures Objective Vital Signs - 12hr 08/27/18 08/27/18 08/27/18 02:01 03:00 04:00 Temperature 98.8 F Pulse Rate 71 81 72 Pulse Rate [ 70 From Monitor] Pulse Rate [ 70 Right Dorsalis Pedis] Respiratory 13 10 L 14 Rate Blood Pressure 129/58 134/74 146/61 O2 Sat by Pulse 100 100 100 Oximetry O2 Sat by Pulse Oximetry [ Assessment] 08/27/18 08/27/18 08/27/18 05:00 05:22 05:30 Temperature Pulse Rate 70 70 Pulse Rate [ From Monitor] Pulse Rate [ Right Dorsalis Pedis] Respiratory 13 Rate Blood Pressure 136/53 136/53 O2 Sat by Pulse 100 100 Oximetry O2 Sat by Pulse 100 Oximetry [ Assessment] 08/27/18 08/27/18 08/27/18 06:00 07:00 08:00 Temperature 97.4 F L Pulse Rate 69 71 72 Pulse Rate [ From Monitor] Pulse Rate [ Right Dorsalis Pedis] Respiratory 14 12 12 Rate Blood Pressure 133/52 134/55 140/53 O2 Sat by Pulse 100 100 100 Oximetry O2 Sat by Pulse Oximetry [ Assessment] 08/27/18 08/27/18 08/27/18 08:43 09:01 10:00 Temperature Pulse Rate 70 70 72 Pulse Rate [ From Monitor] Pulse Rate [ Right Dorsalis Pedis] Respiratory 12 11 L Rate Blood Pressure 141/62 153/66 153/70 O2 Sat by Pulse 100 100 100 Oximetry O2 Sat by Pulse Oximetry [ Assessment] 08/27/18 08/27/18 08/27/18 11:00 12:00 12:02 Temperature 97.8 F Pulse Rate 67 64 Pulse Rate [ From Monitor] Pulse Rate [ Right Dorsalis Pedis] Respiratory 12 Rate Blood Pressure 163/73 158/67 O2 Sat by Pulse 100 100 Oximetry O2 Sat by Pulse Oximetry [ Assessment] 08/27/18 12:34 Temperature Pulse Rate Pulse Rate [ From Monitor] Pulse Rate [ Right Dorsalis Pedis] Respiratory Rate Blood Pressure O2 Sat by Pulse 100 Oximetry O2 Sat by Pulse Oximetry [ Assessment] Constitutional: no acute distress, other (Elderly looking AAM, normocephalic resting in bed on MVS) Eyes: non-icteric ENT: oropharynx moist, other (ETT 23-24 cm JOVI) Neck: supple, no lymphadenopathy, no JVD, other (no thyromegaly) Effort: mildly labored Ascultation: Bilateral: diminished breath sounds, rhonchi Percussion: Bilateral: not dull Cardiovascular: regular rate and rhythm Gastrointestinal: normoactive bowel sounds, soft, non-tender, non-distended Integumentary: normal Extremities: no cyanosis, pulses normal, no ischemia or petechiae, edema (trace ) Neurologic: unable to assess, other (slight pupillary constriction to light) Psychiatric: other (unable to assess) CBC and BMP: 08/26/18 04:39 08/27/18 06:30 ABG, PT/INR, D-dimer: ABG POC ABG pH 7.427 (7.35-7.45) 08/24/18 00:10 POC ABG pCO2 35.5 (35-45) 08/24/18 00:10 POC ABG pO2 91 (80-105) 08/24/18 00:10 POC ABG HCO3 23.4 (22-26 mml/L) 08/24/18 00:10 POC ABG Total CO2 24 (23-27mmol/L) 08/24/18 00:10 POC ABG O2 Sat 97 08/24/18 00:10 PT/INR, D-dimer PT 16.5 Sec. (12.2-14.9) H 08/13/18 00:47 INR 1.25 (0.87-1.13) H 08/13/18 00:47 2742.50 ng/mlDDU (0-234) H 08/13/18 20:07 Abnormal lab findings: Abnormal Labs 08/12/18 08/12/18 08/12/18 21:44 21:44 21:44 WBC 15.5 H RBC 3.12 L Hgb 8.8 L Hct 28.9 L MCHC 31 L RDW 19.5 H Lymph % (Auto) Bryan % (Auto) Lymph # Bryan # Seg Neutrophils % Lymphocytes % (Manual) 48.0 H Seg Neutrophils # Lymphocytes # (Manual) 7.4 H PT 17.8 H INR 1.37 H APTT D-Dimer Heparin Anti-Xa Level POC ABG pH POC ABG pCO2 POC ABG pO2 Sodium 159 H Potassium Chloride 118.5 H Carbon Dioxide BUN 34 H Creatinine Glucose 161 H POC Glucose Lactic Acid Calcium Magnesium AST Alkaline Phosphatase Total Creatine Kinase CK-MB (CK-2) Troponin T 0.105 H* C-Reactive Protein Total Protein Albumin Cholesterol LDL Cholesterol Direct HDL Cholesterol Free T4 Urine WBC (Auto) Urine Creatinine Urine Total Protein Crossmatch 08/13/18 08/13/18 08/13/18 00:32 00:47 00:47 WBC RBC Hgb 9.2 L Hct 29.6 L MCHC RDW Lymph % (Auto) Bryan % (Auto) Lymph # Bryan # Seg Neutrophils % Lymphocytes % (Manual) Seg Neutrophils # Lymphocytes # (Manual) PT 16.5 H INR 1.25 H APTT 37.3 H D-Dimer Heparin Anti-Xa Level POC ABG pH POC ABG pCO2 POC ABG pO2 Sodium Potassium Chloride Carbon Dioxide BUN Creatinine Glucose POC Glucose Lactic Acid Calcium Magnesium AST Alkaline Phosphatase Total Creatine Kinase 211 H CK-MB (CK-2) 7.7 H Troponin T 0.169 H* D C-Reactive Protein Total Protein Albumin Cholesterol 46 L LDL Cholesterol Direct 17 L HDL Cholesterol 6 L Free T4 Urine WBC (Auto) Urine Creatinine Urine Total Protein Crossmatch 08/13/18 08/13/18 08/13/18 00:50 02:25 05:34 WBC RBC Hgb Hct MCHC RDW Lymph % (Auto) Bryan % (Auto) Lymph # Bryan # Seg Neutrophils % Lymphocytes % (Manual) Seg Neutrophils # Lymphocytes # (Manual) PT INR APTT D-Dimer Heparin Anti-Xa Level POC ABG pH 7.503 H POC ABG pCO2 POC ABG pO2 253 H Sodium Potassium Chloride Carbon Dioxide BUN Creatinine Glucose POC Glucose Lactic Acid Calcium Magnesium AST Alkaline Phosphatase Total Creatine Kinase 311 H CK-MB (CK-2) 10.4 H Troponin T 0.283 H* D C-Reactive Protein Total Protein Albumin Cholesterol LDL Cholesterol Direct HDL Cholesterol Free T4 Urine WBC (Auto) > 182.0 H Urine Creatinine Urine Total Protein Crossmatch 08/13/18 08/13/18 08/13/18 06:35 10:10 10:10 WBC RBC Hgb Hct MCHC RDW Lymph % (Auto) Bryan % (Auto) Lymph # Bryan # Seg Neutrophils % Lymphocytes % (Manual) Seg Neutrophils # Lymphocytes # (Manual) PT INR APTT D-Dimer Heparin Anti-Xa Level POC ABG pH 7.554 H POC ABG pCO2 33.5 L POC ABG pO2 220 H Sodium 158 H Potassium Chloride 117.1 H Carbon Dioxide BUN 53 H Creatinine 2.0 H Glucose 247 H POC Glucose Lactic Acid Calcium 8.2 L Magnesium AST Alkaline Phosphatase Total Creatine Kinase 309 H CK-MB (CK-2) 4.1 H Troponin T 0.470 H* D C-Reactive Protein Total Protein Albumin Cholesterol LDL Cholesterol Direct HDL Cholesterol Free T4 Urine WBC (Auto) Urine Creatinine Urine Total Protein Crossmatch 08/13/18 08/13/18 08/13/18 12:53 12:53 17:55 WBC RBC Hgb Hct MCHC RDW Lymph % (Auto) Bryan % (Auto) Lymph # Bryan # Seg Neutrophils % Lymphocytes % (Manual) Seg Neutrophils # Lymphocytes # (Manual) PT INR APTT D-Dimer Heparin Anti-Xa Level POC ABG pH POC ABG pCO2 POC ABG pO2 Sodium Potassium Chloride Carbon Dioxide BUN Creatinine Glucose POC Glucose 308 H Lactic Acid 2.80 H* Calcium Magnesium 2.50 H AST Alkaline Phosphatase Total Creatine Kinase CK-MB (CK-2) Troponin T C-Reactive Protein 16.90 H Total Protein Albumin Cholesterol LDL Cholesterol Direct HDL Cholesterol Free T4 Urine WBC (Auto) Urine Creatinine Urine Total Protein Crossmatch 08/13/18 08/13/18 08/13/18 20:07 21:16 23:17 WBC RBC Hgb Hct MCHC RDW Lymph % (Auto) Bryan % (Auto) Lymph # Bryan # Seg Neutrophils % Lymphocytes % (Manual) Seg Neutrophils # Lymphocytes # (Manual) PT INR APTT D-Dimer 2742.50 H Heparin Anti-Xa Level POC ABG pH 7.483 H POC ABG pCO2 30.8 L POC ABG pO2 150 H Sodium Potassium Chloride Carbon Dioxide BUN Creatinine Glucose POC Glucose 245 H Lactic Acid Calcium Magnesium AST Alkaline Phosphatase Total Creatine Kinase CK-MB (CK-2) Troponin T C-Reactive Protein Total Protein Albumin Cholesterol LDL Cholesterol Direct HDL Cholesterol Free T4 Urine WBC (Auto) Urine Creatinine Urine Total Protein Crossmatch 08/14/18 08/14/18 08/14/18 04:03 04:03 04:56 WBC 18.2 H RBC 2.62 L Hgb 7.3 L Hct 24.5 L MCHC RDW 18.9 H Lymph % (Auto) Bryan % (Auto) Lymph # Bryan # 1.2 H Seg Neutrophils % 79.4 H Lymphocytes % (Manual) Seg Neutrophils # 14.5 H Lymphocytes # (Manual) PT INR APTT D-Dimer Heparin Anti-Xa Level POC ABG pH POC ABG pCO2 33.5 L POC ABG pO2 153 H Sodium 152 H Potassium 3.4 L Chloride 113.8 H Carbon Dioxide BUN 72 H Creatinine 2.7 H Glucose 239 H POC Glucose Lactic Acid Calcium 7.6 L Magnesium AST 50 H Alkaline Phosphatase 219 H Total Creatine Kinase CK-MB (CK-2) Troponin T 0.409 H* C-Reactive Protein Total Protein 6.2 L Albumin 1.9 L Cholesterol LDL Cholesterol Direct HDL Cholesterol Free T4 Urine WBC (Auto) Urine Creatinine Urine Total Protein Crossmatch 08/14/18 08/14/18 08/14/18 05:18 13:38 15:35 WBC RBC Hgb Hct MCHC RDW Lymph % (Auto) Bryan % (Auto) Lymph # Bryan # Seg Neutrophils % Lymphocytes % (Manual) Seg Neutrophils # Lymphocytes # (Manual) PT INR APTT D-Dimer Heparin Anti-Xa Level POC ABG pH POC ABG pCO2 POC ABG pO2 Sodium 150 H Potassium 3.2 L Chloride 114.5 H Carbon Dioxide BUN 69 H Creatinine 2.3 H Glucose 247 H POC Glucose 242 H 296 H Lactic Acid Calcium 7.2 L Magnesium AST Alkaline Phosphatase Total Creatine Kinase CK-MB (CK-2) Troponin T C-Reactive Protein Total Protein Albumin Cholesterol LDL Cholesterol Direct HDL Cholesterol Free T4 Urine WBC (Auto) Urine Creatinine Urine Total Protein Crossmatch 08/14/18 08/14/18 08/14/18 17:01 17:20 23:47 WBC RBC Hgb Hct MCHC RDW Lymph % (Auto) Bryan % (Auto) Lymph # Bryan # Seg Neutrophils % Lymphocytes % (Manual) Seg Neutrophils # Lymphocytes # (Manual) PT INR APTT D-Dimer Heparin Anti-Xa Level POC ABG pH POC ABG pCO2 POC ABG pO2 Sodium Potassium Chloride Carbon Dioxide BUN Creatinine Glucose POC Glucose 261 H 280 H Lactic Acid Calcium Magnesium AST Alkaline Phosphatase Total Creatine Kinase CK-MB (CK-2) Troponin T C-Reactive Protein Total Protein Albumin Cholesterol LDL Cholesterol Direct HDL Cholesterol Free T4 Urine WBC (Auto) Urine Creatinine 60.9 H Urine Total Protein 64 H Crossmatch 08/15/18 08/15/18 08/15/18 04:05 04:05 04:05 WBC RBC Hgb 6.3 L Hct 19.7 L* MCHC RDW Lymph % (Auto) Bryan % (Auto) Lymph # Bryan # Seg Neutrophils % Lymphocytes % (Manual) Seg Neutrophils # Lymphocytes # (Manual) PT INR APTT D-Dimer Heparin Anti-Xa Level 0.17 L POC ABG pH POC ABG pCO2 POC ABG pO2 Sodium 146 H Potassium 3.0 L Chloride 110.6 H Carbon Dioxide BUN 64 H Creatinine 2.2 H Glucose 231 H POC Glucose Lactic Acid Calcium 7.1 L Magnesium AST Alkaline Phosphatase Total Creatine Kinase CK-MB (CK-2) Troponin T C-Reactive Protein Total Protein Albumin Cholesterol LDL Cholesterol Direct HDL Cholesterol Free T4 Urine WBC (Auto) Urine Creatinine Urine Total Protein Crossmatch 08/15/18 08/15/18 08/15/18 05:21 05:26 06:35 WBC RBC Hgb Hct MCHC RDW Lymph % (Auto) Bryan % (Auto) Lymph # Bryan # Seg Neutrophils % Lymphocytes % (Manual) Seg Neutrophils # Lymphocytes # (Manual) PT INR APTT 79.0 H* D-Dimer Heparin Anti-Xa Level POC ABG pH 7.494 H POC ABG pCO2 POC ABG pO2 155 H Sodium Potassium Chloride Carbon Dioxide BUN Creatinine Glucose POC Glucose 271 H Lactic Acid Calcium Magnesium AST Alkaline Phosphatase Total Creatine Kinase CK-MB (CK-2) Troponin T C-Reactive Protein Total Protein Albumin Cholesterol LDL Cholesterol Direct HDL Cholesterol Free T4 Urine WBC (Auto) Urine Creatinine Urine Total Protein Crossmatch 08/15/18 08/15/18 08/15/18 12:10 15:31 17:27 WBC RBC Hgb Hct MCHC RDW Lymph % (Auto) Bryan % (Auto) Lymph # Bryan # Seg Neutrophils % Lymphocytes % (Manual) Seg Neutrophils # Lymphocytes # (Manual) PT INR APTT D-Dimer Heparin Anti-Xa Level POC ABG pH POC ABG pCO2 POC ABG pO2 Sodium Potassium Chloride Carbon Dioxide BUN Creatinine Glucose POC Glucose 301 H 287 H Lactic Acid Calcium Magnesium AST Alkaline Phosphatase Total Creatine Kinase CK-MB (CK-2) Troponin T C-Reactive Protein Total Protein Albumin Cholesterol LDL Cholesterol Direct HDL Cholesterol Free T4 Urine WBC (Auto) Urine Creatinine Urine Total Protein Crossmatch See Detail 08/15/18 08/15/18 08/16/18 21:41 23:45 04:13 WBC RBC Hgb Hct MCHC RDW Lymph % (Auto) Bryan % (Auto) Lymph # Bryan # Seg Neutrophils % Lymphocytes % (Manual) Seg Neutrophils # Lymphocytes # (Manual) PT INR APTT D-Dimer Heparin Anti-Xa Level 0.19 L POC ABG pH POC ABG pCO2 32.1 L POC ABG pO2 107 H Sodium Potassium Chloride Carbon Dioxide BUN Creatinine Glucose POC Glucose 163 H Lactic Acid Calcium Magnesium AST Alkaline Phosphatase Total Creatine Kinase CK-MB (CK-2) Troponin T C-Reactive Protein Total Protein Albumin Cholesterol LDL Cholesterol Direct HDL Cholesterol Free T4 Urine WBC (Auto) Urine Creatinine Urine Total Protein Crossmatch 08/16/18 08/16/18 08/16/18 04:50 05:28 11:30 WBC RBC 2.67 L Hgb 8.1 L Hct 23.4 L MCHC 35 H RDW 18.3 H Lymph % (Auto) Bryan % (Auto) Lymph # Bryan # Seg Neutrophils % Lymphocytes % (Manual) Seg Neutrophils # Lymphocytes # (Manual) PT INR APTT D-Dimer Heparin Anti-Xa Level 0.19 L POC ABG pH POC ABG pCO2 POC ABG pO2 Sodium Potassium Chloride Carbon Dioxide BUN Creatinine Glucose POC Glucose 141 H Lactic Acid Calcium Magnesium AST Alkaline Phosphatase Total Creatine Kinase CK-MB (CK-2) Troponin T C-Reactive Protein Total Protein Albumin Cholesterol LDL Cholesterol Direct HDL Cholesterol Free T4 Urine WBC (Auto) Urine Creatinine Urine Total Protein Crossmatch 08/16/18 08/16/18 08/16/18 11:30 12:00 12:01 WBC RBC Hgb Hct MCHC RDW Lymph % (Auto) Bryan % (Auto) Lymph # Bryan # Seg Neutrophils % Lymphocytes % (Manual) Seg Neutrophils # Lymphocytes # (Manual) PT INR APTT D-Dimer Heparin Anti-Xa Level 0.15 L POC ABG pH POC ABG pCO2 POC ABG pO2 Sodium Potassium Chloride 107.8 H Carbon Dioxide 21 L BUN 47 H Creatinine 1.6 H Glucose 221 H POC Glucose 267 H Lactic Acid Calcium 6.9 L Magnesium AST Alkaline Phosphatase Total Creatine Kinase CK-MB (CK-2) Troponin T C-Reactive Protein Total Protein Albumin Cholesterol LDL Cholesterol Direct HDL Cholesterol Free T4 Urine WBC (Auto) Urine Creatinine Urine Total Protein Crossmatch 08/16/18 08/16/18 08/16/18 17:23 20:01 23:13 WBC RBC Hgb Hct MCHC RDW Lymph % (Auto) Bryan % (Auto) Lymph # Bryan # Seg Neutrophils % Lymphocytes % (Manual) Seg Neutrophils # Lymphocytes # (Manual) PT INR APTT D-Dimer Heparin Anti-Xa Level 0.26 L POC ABG pH POC ABG pCO2 POC ABG pO2 Sodium Potassium Chloride Carbon Dioxide BUN Creatinine Glucose POC Glucose 245 H 256 H Lactic Acid Calcium Magnesium AST Alkaline Phosphatase Total Creatine Kinase CK-MB (CK-2) Troponin T C-Reactive Protein Total Protein Albumin Cholesterol LDL Cholesterol Direct HDL Cholesterol Free T4 Urine WBC (Auto) Urine Creatinine Urine Total Protein Crossmatch 08/17/18 08/17/18 08/17/18 04:29 04:55 05:34 WBC RBC Hgb 8.2 L Hct 24.3 L MCHC RDW Lymph % (Auto) Bryan % (Auto) Lymph # Bryan # Seg Neutrophils % Lymphocytes % (Manual) Seg Neutrophils # Lymphocytes # (Manual) PT INR APTT D-Dimer Heparin Anti-Xa Level POC ABG pH POC ABG pCO2 32.4 L POC ABG pO2 108 H Sodium Potassium Chloride Carbon Dioxide BUN Creatinine Glucose POC Glucose 268 H Lactic Acid Calcium Magnesium AST Alkaline Phosphatase Total Creatine Kinase CK-MB (CK-2) Troponin T C-Reactive Protein Total Protein Albumin Cholesterol LDL Cholesterol Direct HDL Cholesterol Free T4 Urine WBC (Auto) Urine Creatinine Urine Total Protein Crossmatch 08/17/18 08/17/18 08/17/18 11:54 13:44 17:24 WBC RBC Hgb Hct MCHC RDW Lymph % (Auto) Bryan % (Auto) Lymph # Bryan # Seg Neutrophils % Lymphocytes % (Manual) Seg Neutrophils # Lymphocytes # (Manual) PT INR APTT D-Dimer Heparin Anti-Xa Level POC ABG pH POC ABG pCO2 32.7 L POC ABG pO2 142 H Sodium Potassium Chloride Carbon Dioxide BUN Creatinine Glucose POC Glucose 295 H 283 H Lactic Acid Calcium Magnesium AST Alkaline Phosphatase Total Creatine Kinase CK-MB (CK-2) Troponin T C-Reactive Protein Total Protein Albumin Cholesterol LDL Cholesterol Direct HDL Cholesterol Free T4 Urine WBC (Auto) Urine Creatinine Urine Total Protein Crossmatch 08/18/18 08/18/18 08/18/18 00:05 00:59 04:15 WBC RBC Hgb Hct MCHC RDW Lymph % (Auto) Bryan % (Auto) Lymph # Bryan # Seg Neutrophils % Lymphocytes % (Manual) Seg Neutrophils # Lymphocytes # (Manual) PT INR APTT D-Dimer Heparin Anti-Xa Level POC ABG pH POC ABG pCO2 POC ABG pO2 115 H Sodium Potassium Chloride Carbon Dioxide BUN Creatinine Glucose POC Glucose 247 H 251 H Lactic Acid Calcium Magnesium AST Alkaline Phosphatase Total Creatine Kinase CK-MB (CK-2) Troponin T C-Reactive Protein Total Protein Albumin Cholesterol LDL Cholesterol Direct HDL Cholesterol Free T4 Urine WBC (Auto) Urine Creatinine Urine Total Protein Crossmatch 08/18/18 08/18/18 08/18/18 05:02 12:20 17:51 WBC RBC Hgb Hct MCHC RDW Lymph % (Auto) Bryan % (Auto) Lymph # Bryan # Seg Neutrophils % Lymphocytes % (Manual) Seg Neutrophils # Lymphocytes # (Manual) PT INR APTT D-Dimer Heparin Anti-Xa Level POC ABG pH POC ABG pCO2 POC ABG pO2 Sodium Potassium Chloride Carbon Dioxide BUN Creatinine Glucose POC Glucose 282 H 209 H 261 H Lactic Acid Calcium Magnesium AST Alkaline Phosphatase Total Creatine Kinase CK-MB (CK-2) Troponin T C-Reactive Protein Total Protein Albumin Cholesterol LDL Cholesterol Direct HDL Cholesterol Free T4 Urine WBC (Auto) Urine Creatinine Urine Total Protein Crossmatch 08/18/18 08/19/18 08/19/18 23:30 04:54 05:16 WBC RBC 2.62 L Hgb 7.5 L Hct 23.1 L MCHC RDW 18.1 H Lymph % (Auto) Bryan % (Auto) Lymph # Bryan # Seg Neutrophils % Lymphocytes % (Manual) Seg Neutrophils # Lymphocytes # (Manual) PT INR APTT D-Dimer Heparin Anti-Xa Level POC ABG pH POC ABG pCO2 POC ABG pO2 58 L Sodium Potassium Chloride Carbon Dioxide BUN Creatinine Glucose POC Glucose 231 H Lactic Acid Calcium Magnesium AST Alkaline Phosphatase Total Creatine Kinase CK-MB (CK-2) Troponin T C-Reactive Protein Total Protein Albumin Cholesterol LDL Cholesterol Direct HDL Cholesterol Free T4 Urine WBC (Auto) Urine Creatinine Urine Total Protein Crossmatch 08/19/18 08/19/18 08/19/18 05:16 05:40 11:56 WBC RBC Hgb Hct MCHC RDW Lymph % (Auto) Bryan % (Auto) Lymph # Bryan # Seg Neutrophils % Lymphocytes % (Manual) Seg Neutrophils # Lymphocytes # (Manual) PT INR APTT D-Dimer Heparin Anti-Xa Level POC ABG pH POC ABG pCO2 POC ABG pO2 Sodium 152 H D Potassium Chloride 118.7 H Carbon Dioxide BUN 38 H Creatinine Glucose 220 H POC Glucose 227 H 213 H Lactic Acid Calcium 8.1 L D Magnesium AST Alkaline Phosphatase Total Creatine Kinase CK-MB (CK-2) Troponin T C-Reactive Protein Total Protein Albumin Cholesterol LDL Cholesterol Direct HDL Cholesterol Free T4 Urine WBC (Auto) Urine Creatinine Urine Total Protein Crossmatch 08/19/18 08/19/18 08/20/18 18:37 23:32 04:38 WBC RBC Hgb Hct MCHC RDW Lymph % (Auto) Bryan % (Auto) Lymph # Bryan # Seg Neutrophils % Lymphocytes % (Manual) Seg Neutrophils # Lymphocytes # (Manual) PT INR APTT D-Dimer Heparin Anti-Xa Level POC ABG pH POC ABG pCO2 POC ABG pO2 140 H Sodium Potassium Chloride Carbon Dioxide BUN Creatinine Glucose POC Glucose 227 H 245 H Lactic Acid Calcium Magnesium AST Alkaline Phosphatase Total Creatine Kinase CK-MB (CK-2) Troponin T C-Reactive Protein Total Protein Albumin Cholesterol LDL Cholesterol Direct HDL Cholesterol Free T4 Urine WBC (Auto) Urine Creatinine Urine Total Protein Crossmatch 08/20/18 08/20/18 08/20/18 05:31 05:37 05:37 WBC RBC 2.60 L Hgb 7.5 L Hct 22.9 L MCHC RDW 18.4 H Lymph % (Auto) Bryan % (Auto) Lymph # Bryan # Seg Neutrophils % Lymphocytes % (Manual) Seg Neutrophils # Lymphocytes # (Manual) PT INR APTT D-Dimer Heparin Anti-Xa Level POC ABG pH POC ABG pCO2 POC ABG pO2 Sodium 150 H Potassium Chloride 115.6 H Carbon Dioxide BUN 38 H Creatinine Glucose 276 H POC Glucose 266 H Lactic Acid Calcium 7.9 L Magnesium AST Alkaline Phosphatase Total Creatine Kinase CK-MB (CK-2) Troponin T C-Reactive Protein Total Protein Albumin Cholesterol LDL Cholesterol Direct HDL Cholesterol Free T4 Urine WBC (Auto) Urine Creatinine Urine Total Protein Crossmatch 08/20/18 08/20/18 08/20/18 14:01 18:20 23:11 WBC RBC Hgb Hct MCHC RDW Lymph % (Auto) Bryan % (Auto) Lymph # Bryan # Seg Neutrophils % Lymphocytes % (Manual) Seg Neutrophils # Lymphocytes # (Manual) PT INR APTT D-Dimer Heparin Anti-Xa Level POC ABG pH POC ABG pCO2 POC ABG pO2 Sodium Potassium Chloride Carbon Dioxide BUN Creatinine Glucose POC Glucose 305 H 271 H 218 H Lactic Acid Calcium Magnesium AST Alkaline Phosphatase Total Creatine Kinase CK-MB (CK-2) Troponin T C-Reactive Protein Total Protein Albumin Cholesterol LDL Cholesterol Direct HDL Cholesterol Free T4 Urine WBC (Auto) Urine Creatinine Urine Total Protein Crossmatch 08/21/18 08/21/18 08/21/18 04:41 04:41 06:20 WBC RBC 2.65 L Hgb 7.6 L Hct 23.3 L MCHC RDW 19.1 H Lymph % (Auto) Bryan % (Auto) Lymph # Bryan # Seg Neutrophils % Lymphocytes % (Manual) Seg Neutrophils # Lymphocytes # (Manual) PT INR APTT D-Dimer Heparin Anti-Xa Level POC ABG pH POC ABG pCO2 POC ABG pO2 Sodium 150 H Potassium Chloride 117.8 H Carbon Dioxide BUN 37 H Creatinine Glucose 233 H POC Glucose 262 H Lactic Acid Calcium 7.9 L Magnesium AST Alkaline Phosphatase Total Creatine Kinase CK-MB (CK-2) Troponin T C-Reactive Protein Total Protein Albumin Cholesterol LDL Cholesterol Direct HDL Cholesterol Free T4 Urine WBC (Auto) Urine Creatinine Urine Total Protein Crossmatch 08/21/18 08/21/18 08/21/18 10:18 12:04 12:36 WBC RBC Hgb Hct MCHC RDW Lymph % (Auto) Bryan % (Auto) Lymph # Bryan # Seg Neutrophils % Lymphocytes % (Manual) Seg Neutrophils # Lymphocytes # (Manual) PT INR APTT D-Dimer Heparin Anti-Xa Level POC ABG pH POC ABG pCO2 POC ABG pO2 Sodium Potassium Chloride Carbon Dioxide BUN Creatinine Glucose POC Glucose 256 H 245 H 255 H Lactic Acid Calcium Magnesium AST Alkaline Phosphatase Total Creatine Kinase CK-MB (CK-2) Troponin T C-Reactive Protein Total Protein Albumin Cholesterol LDL Cholesterol Direct HDL Cholesterol Free T4 Urine WBC (Auto) Urine Creatinine Urine Total Protein Crossmatch 08/21/18 08/21/18 08/22/18 17:36 23:29 05:01 WBC RBC Hgb Hct MCHC RDW Lymph % (Auto) Bryan % (Auto) Lymph # Bryan # Seg Neutrophils % Lymphocytes % (Manual) Seg Neutrophils # Lymphocytes # (Manual) PT INR APTT D-Dimer Heparin Anti-Xa Level POC ABG pH 7.466 H POC ABG pCO2 33.8 L POC ABG pO2 111 H Sodium Potassium Chloride Carbon Dioxide BUN Creatinine Glucose POC Glucose 263 H 268 H Lactic Acid Calcium Magnesium AST Alkaline Phosphatase Total Creatine Kinase CK-MB (CK-2) Troponin T C-Reactive Protein Total Protein Albumin Cholesterol LDL Cholesterol Direct HDL Cholesterol Free T4 Urine WBC (Auto) Urine Creatinine Urine Total Protein Crossmatch 08/22/18 08/22/18 08/22/18 05:05 12:05 12:15 WBC RBC Hgb Hct MCHC RDW Lymph % (Auto) Bryan % (Auto) Lymph # Bryan # Seg Neutrophils % Lymphocytes % (Manual) Seg Neutrophils # Lymphocytes # (Manual) PT INR APTT D-Dimer Heparin Anti-Xa Level POC ABG pH POC ABG pCO2 POC ABG pO2 Sodium 147 H Potassium Chloride 113.2 H Carbon Dioxide BUN 36 H Creatinine Glucose 249 H POC Glucose 256 H 228 H Lactic Acid Calcium 8.2 L Magnesium AST Alkaline Phosphatase Total Creatine Kinase CK-MB (CK-2) Troponin T C-Reactive Protein Total Protein Albumin Cholesterol LDL Cholesterol Direct HDL Cholesterol Free T4 Urine WBC (Auto) Urine Creatinine Urine Total Protein Crossmatch 08/22/18 08/23/18 08/23/18 17:30 00:03 05:05 WBC RBC Hgb Hct MCHC RDW Lymph % (Auto) Bryan % (Auto) Lymph # Bryan # Seg Neutrophils % Lymphocytes % (Manual) Seg Neutrophils # Lymphocytes # (Manual) PT INR APTT D-Dimer Heparin Anti-Xa Level POC ABG pH POC ABG pCO2 POC ABG pO2 Sodium Potassium Chloride Carbon Dioxide BUN Creatinine Glucose POC Glucose 291 H 259 H 247 H Lactic Acid Calcium Magnesium AST Alkaline Phosphatase Total Creatine Kinase CK-MB (CK-2) Troponin T C-Reactive Protein Total Protein Albumin Cholesterol LDL Cholesterol Direct HDL Cholesterol Free T4 Urine WBC (Auto) Urine Creatinine Urine Total Protein Crossmatch 08/23/18 08/23/18 08/23/18 05:14 12:29 17:21 WBC RBC Hgb Hct MCHC RDW Lymph % (Auto) Bryan % (Auto) Lymph # Bryan # Seg Neutrophils % Lymphocytes % (Manual) Seg Neutrophils # Lymphocytes # (Manual) PT INR APTT D-Dimer Heparin Anti-Xa Level POC ABG pH POC ABG pCO2 POC ABG pO2 Sodium Potassium Chloride Carbon Dioxide BUN Creatinine Glucose POC Glucose 208 H 138 H 175 H Lactic Acid Calcium Magnesium AST Alkaline Phosphatase Total Creatine Kinase CK-MB (CK-2) Troponin T C-Reactive Protein Total Protein Albumin Cholesterol LDL Cholesterol Direct HDL Cholesterol Free T4 Urine WBC (Auto) Urine Creatinine Urine Total Protein Crossmatch 08/23/18 08/24/18 08/24/18 23:36 01:00 05:50 WBC RBC 2.92 L 2.90 L Hgb 8.3 L 8.2 L Hct 25.4 L 25.2 L MCHC RDW 18.9 H 18.6 H Lymph % (Auto) Bryan % (Auto) 9.2 H Lymph # Bryan # Seg Neutrophils % Lymphocytes % (Manual) Seg Neutrophils # Lymphocytes # (Manual) PT INR APTT D-Dimer Heparin Anti-Xa Level POC ABG pH POC ABG pCO2 POC ABG pO2 Sodium Potassium Chloride Carbon Dioxide BUN Creatinine Glucose POC Glucose 163 H Lactic Acid Calcium Magnesium AST Alkaline Phosphatase Total Creatine Kinase CK-MB (CK-2) Troponin T C-Reactive Protein Total Protein Albumin Cholesterol LDL Cholesterol Direct HDL Cholesterol Free T4 Urine WBC (Auto) Urine Creatinine Urine Total Protein Crossmatch 08/24/18 08/24/18 08/24/18 05:50 12:26 18:37 WBC RBC Hgb Hct MCHC RDW Lymph % (Auto) Bryan % (Auto) Lymph # Bryan # Seg Neutrophils % Lymphocytes % (Manual) Seg Neutrophils # Lymphocytes # (Manual) PT INR APTT D-Dimer Heparin Anti-Xa Level POC ABG pH POC ABG pCO2 POC ABG pO2 Sodium 147 H Potassium Chloride 113.6 H Carbon Dioxide BUN 33 H Creatinine Glucose 210 H POC Glucose 223 H 166 H Lactic Acid Calcium 8.3 L Magnesium AST Alkaline Phosphatase Total Creatine Kinase CK-MB (CK-2) Troponin T C-Reactive Protein Total Protein Albumin Cholesterol LDL Cholesterol Direct HDL Cholesterol Free T4 Urine WBC (Auto) Urine Creatinine Urine Total Protein Crossmatch 08/24/18 08/25/18 08/25/18 23:47 04:55 04:55 WBC RBC 2.94 L Hgb 8.4 L Hct 25.1 L MCHC RDW 18.2 H Lymph % (Auto) Bryan % (Auto) Lymph # Bryan # Seg Neutrophils % Lymphocytes % (Manual) Seg Neutrophils # Lymphocytes # (Manual) PT INR APTT D-Dimer Heparin Anti-Xa Level POC ABG pH POC ABG pCO2 POC ABG pO2 Sodium Potassium Chloride 110.2 H Carbon Dioxide BUN 30 H Creatinine Glucose POC Glucose 126 H Lactic Acid Calcium 8.1 L Magnesium AST Alkaline Phosphatase Total Creatine Kinase CK-MB (CK-2) Troponin T C-Reactive Protein Total Protein Albumin Cholesterol LDL Cholesterol Direct HDL Cholesterol Free T4 Urine WBC (Auto) Urine Creatinine Urine Total Protein Crossmatch 08/25/18 08/26/18 08/26/18 12:40 04:39 04:39 WBC RBC 2.96 L Hgb 8.3 L Hct 25.7 L MCHC RDW 18.2 H Lymph % (Auto) 10.5 L Bryan % (Auto) 9.3 H Lymph # 0.8 L Bryan # Seg Neutrophils % 77.0 H Lymphocytes % (Manual) Seg Neutrophils # Lymphocytes # (Manual) PT INR APTT D-Dimer Heparin Anti-Xa Level POC ABG pH POC ABG pCO2 POC ABG pO2 Sodium 147 H Potassium Chloride 113.5 H Carbon Dioxide BUN 27 H Creatinine 0.7 L Glucose 106 H POC Glucose Lactic Acid Calcium 8.0 L Magnesium AST Alkaline Phosphatase Total Creatine Kinase CK-MB (CK-2) Troponin T C-Reactive Protein Total Protein Albumin Cholesterol LDL Cholesterol Direct HDL Cholesterol Free T4 Urine WBC (Auto) > 182.0 H Urine Creatinine Urine Total Protein Crossmatch 08/26/18 08/26/18 08/26/18 05:27 09:00 09:54 WBC RBC Hgb Hct MCHC RDW Lymph % (Auto) Bryan % (Auto) Lymph # Bryan # Seg Neutrophils % Lymphocytes % (Manual) Seg Neutrophils # Lymphocytes # (Manual) PT INR APTT D-Dimer Heparin Anti-Xa Level POC ABG pH POC ABG pCO2 POC ABG pO2 Sodium Potassium Chloride Carbon Dioxide BUN Creatinine Glucose POC Glucose 120 H 170 H Lactic Acid Calcium Magnesium AST Alkaline Phosphatase Total Creatine Kinase CK-MB (CK-2) Troponin T C-Reactive Protein Total Protein Albumin Cholesterol LDL Cholesterol Direct HDL Cholesterol Free T4 0.51 L Urine WBC (Auto) Urine Creatinine Urine Total Protein Crossmatch 08/26/18 08/26/18 08/27/18 14:52 17:50 06:30 WBC RBC Hgb Hct MCHC RDW Lymph % (Auto) Bryan % (Auto) Lymph # Bryan # Seg Neutrophils % Lymphocytes % (Manual) Seg Neutrophils # Lymphocytes # (Manual) PT INR APTT D-Dimer Heparin Anti-Xa Level POC ABG pH POC ABG pCO2 POC ABG pO2 Sodium 150 H Potassium Chloride 114.8 H Carbon Dioxide BUN 24 H Creatinine 0.7 L Glucose 131 H POC Glucose 166 H 107 H Lactic Acid Calcium 7.8 L Magnesium AST Alkaline Phosphatase Total Creatine Kinase CK-MB (CK-2) Troponin T C-Reactive Protein Total Protein Albumin Cholesterol LDL Cholesterol Direct HDL Cholesterol Free T4 Urine WBC (Auto) Urine Creatinine Urine Total Protein Crossmatch 08/27/18 08:22 WBC RBC Hgb Hct MCHC RDW Lymph % (Auto) Bryan % (Auto) Lymph # Bryan # Seg Neutrophils % Lymphocytes % (Manual) Seg Neutrophils # Lymphocytes # (Manual) PT INR APTT D-Dimer Heparin Anti-Xa Level POC ABG pH POC ABG pCO2 POC ABG pO2 Sodium Potassium Chloride Carbon Dioxide BUN Creatinine Glucose POC Glucose 112 H Lactic Acid Calcium Magnesium AST Alkaline Phosphatase Total Creatine Kinase CK-MB (CK-2) Troponin T C-Reactive Protein Total Protein Albumin Cholesterol LDL Cholesterol Direct HDL Cholesterol Free T4 Urine WBC (Auto) Urine Creatinine Urine Total Protein Crossmatch Allied health notes reviewed: nursing
--- NOTE | 2018-08-27 17:03 | Progress Note ---
Assessment and Plan - Patient Problems (1) MAYLIN (acute kidney injury) Current Visit: Yes Status: Acute Plan to address problem: Acute kidney injury prerenal azotemia versus acute tubular necrosis. Kidney function improved. Continue volume repletion Follow-up electrolytes and renal function (2) Hypernatremia Current Visit: Yes Status: Acute Plan to address problem: cont free water flushes 250cc q4h, added D5W at 60ml/hr. Follow-up sodium (3) Acute and chronic respiratory failure Current Visit: Yes Status: Acute Qualifiers: Respiratory failure complication: hypoxia Qualified Code(s): J96.21 - Acute and chronic respiratory failure with hypoxia Plan to address problem: vent management as per pulmonary/CCM (4) Type 2 diabetes mellitus without complications Current Visit: Yes Status: Acute Plan to address problem: Blood sugar management by primary attending. (5) Essential (primary) hypertension Current Visit: Yes Status: Acute Plan to address problem: Blood pressure was low on presentation but has improved. Follow-up blood pressure Subjective Date of service: 08/27/18 Principal diagnosis: Acute hypoxemic resp failure; S/P cardiac arrest; Seizures; DM II; H/O CVA Interval history: pt remains on ventilator, unresponsive. Objective - Vital Signs Vital signs: Vital Signs - 12hr 08/27/18 08/27/18 08/27/18 05:22 05:30 06:00 Temperature Pulse Rate 70 69 Respiratory 14 Rate Blood Pressure 136/53 133/52 O2 Sat by Pulse 100 100 Oximetry O2 Sat by Pulse 100 Oximetry [ Assessment] 08/27/18 08/27/18 08/27/18 07:00 08:00 08:43 Temperature 97.4 F L Pulse Rate 71 72 70 Respiratory 12 12 Rate Blood Pressure 134/55 140/53 141/62 O2 Sat by Pulse 100 100 100 Oximetry O2 Sat by Pulse Oximetry [ Assessment] 08/27/18 08/27/18 08/27/18 09:01 10:00 11:00 Temperature Pulse Rate 70 72 67 Respiratory 12 11 L 12 Rate Blood Pressure 153/66 153/70 163/73 O2 Sat by Pulse 100 100 100 Oximetry O2 Sat by Pulse Oximetry [ Assessment] 08/27/18 08/27/18 08/27/18 12:00 12:02 12:34 Temperature 97.8 F Pulse Rate 65 64 Respiratory 11 L Rate Blood Pressure 158/67 158/67 O2 Sat by Pulse 99 100 100 Oximetry O2 Sat by Pulse Oximetry [ Assessment] 08/27/18 08/27/18 08/27/18 13:01 14:00 15:00 Temperature Pulse Rate 64 63 64 Respiratory 11 L 10 L 13 Rate Blood Pressure 158/67 156/69 160/67 O2 Sat by Pulse 99 99 100 Oximetry O2 Sat by Pulse Oximetry [ Assessment] 08/27/18 08/27/18 08/27/18 16:00 16:16 16:23 Temperature 98.0 F Pulse Rate 64 Respiratory Rate Blood Pressure 138/66 O2 Sat by Pulse 100 Oximetry O2 Sat by Pulse 100 Oximetry [ Assessment] - General Appearance General appearance: appears stated age, chronically ill, intubated, comatose EENT: ATNC, PERRL, mucous membranes moist Neck: no JVD Respiratory: Present: Decreased Breath Sounds Cardiology: regular, S1S2 Gastrointestinal: normoactive bowel sounds Integumentary: no rash, other (no edema ) Neurologic: other (intubated, unresponsive ) - Lab 08/26/18 04:39 08/27/18 06:30 Most recent lab results Calcium 7.8 mg/dL (8.4-10.2) L 08/27/18 06:30 Phosphorus 3.90 mg/dL (2.5-4.5) 08/15/18 04:05 Magnesium 2.20 mg/dL (1.7-2.3) 08/15/18 04:05 60.9 mg/dL (0.1-20.0) H 08/14/18 17:20 32 mmol/L 08/14/18 17:20 64 mg/dL (5-11.8) H 08/14/18 17:20 Medications & Allergies - Medications Allergies/Adverse Reactions: Allergies No Known Allergies Allergy (Verified 08/12/18 21:47) Home Medications: Home Medications Medication Instructions Recorded Confirmed Last Taken Type Acetaminophen TAB 2 1000units FEEDTUBE Q6HR PRN 08/18/18 08/18/18 Unknown History Amantadine [Symmetrel] 100 mg FEEDTUBE DAILY 08/18/18 08/18/18 08/13/18 History Amlodipine Besylate [Norvasc] 5 mg FEEDTUBE DAILY 08/18/18 08/18/18 08/13/18 History Ascorbic Acid [Vitamin C Oral Liq] 500 mg FEEDTUBE QDAY 08/18/18 08/18/18 08/13/18 History Ascorbic Acid [Vitamin C with Fiordaliza 1 tab FEEDTUBE DAILY 08/18/18 08/18/18 Unknown History Hips] Aspirin BABY CHEW TAB 1 tab FEEDTUBE DAILY 08/18/18 08/18/18 Unknown History Aspirin BABY CHEW TAB 81 mg FEEDTUBE DAILY 08/18/18 08/18/18 08/13/18 History Atorvastatin Calcium [Lipitor] 40 mg FEEDTUBE DAILY 08/18/18 08/18/18 08/13/18 History Benazepril HCl 10 mg FEEDTUBE DAILY 08/18/18 08/18/18 08/13/18 History Bisacodyl [Dulcolax suppos] 10 mg CO QDAY PRN 08/18/18 08/18/18 Unknown History Docusate Sodium [Colace ORAL LIQ] 100 mg FEEDTUBE QDAY PRN 08/18/18 08/18/18 Unknown History Ferrous Sulfate [Ferrous Sulfate 7.5 ml FEEDTUBE DAILY 08/18/18 08/18/18 History 220 MG/5 ML] Glycopyrrolate [Robinul] 2 mg FEEDTUBE Q8H 08/18/18 08/18/18 08/13/18 History Heparin Sod,Porcine/0.9 % NaCl 5,000 units SUB-Q Q8H 08/18/18 08/18/18 Unknown History [Heparin 5,000 Unit/5 ml-Ns] Insulin Glargine,Hum.rec.anlog 40 unit SQ HS 08/18/18 08/18/18 08/12/18 History [Basaglar Kwikpen U-100] Lacosamide [Vimpat] 1 tab FEEDTUBE Q12HR 08/18/18 08/18/18 Unknown History Lipitor 10 mg FEEDTUBE DAILY 08/18/18 08/18/18 Unknown History Mag-Al Plus Suspension 5 ml FEEDTUBE Q4HR PRN 08/18/18 08/19/18 Unknown History Melatonin 3 mg FEEDTUBE HS 08/18/18 08/18/18 Unknown History Sucralfate [Carafate] 1 gm FEEDTUBE Q8H 05/08/18/18 08/13/18 History Tamsulosin 0.4 mg FEEDTUBE DAILY 08/18/18 08/18/18 Unknown History guaiFENesin 200 mg FEEDTUBE Q4H PRN 08/18/18 08/18/18 Unknown History Active Medications: Generic Name Dose Route Start Last Admin Trade Name Freq PRN Reason Stop Dose Admin Acetaminophen 650 mg 08/13/18 11:40 08/13/18 16:09 Tylenol PO 650 mg Q6H PRN Administration Fever >101 Lipase/Protease/Amylase 1 each 08/25/18 18:[address] 10,500 Unit FEEDTUBE PRN PRN For Clogged Feeding Tube Aspirin 325 mg 08/17/18 10:00 08/27/18 10:22 Aspirin PO 325 mg QDAY LENCHO Administration Atorvastatin Calcium 40 mg 08/14/18 22:00 08/26/18 23:09 Lipitor PO 40 mg QHS LENCHO Administration Dextrose 50 ml 08/13/18 01:34 D50w (25gm) Syringe IV PRN PRN Hypoglycemia Enoxaparin Sodium 40 mg 08/17/18 22:00 08/26/18 21:45 Lovenox SUB-Q 40 mg QDAY@2200 LENCHO Administration Famotidine 20 mg 08/19/18 10:00 08/27/18 10:22 Pepcid PO 20 mg BID LENCHO Administration Hydrophilic Ointment 1 applic 08/13/18 12:21 Vaseline Lip Therapy TP Q2HR PRN Dry Lips Dextrose 1,000 mls @ 60 mls/hr 08/27/18 09:00 08/27/18 10:21 D5w IV 60 mls/hr DIRECT LENCHO Administration Insulin Human Lispro 0 unit 08/26/18 10:00 08/27/18 14:47 Humalog SUB-Q 2 unit Q4HR LENCHO Administration Protocol Levetiracetam 500 mg 08/27/18 22:00 Keppra PO BID LENCHO Modafinil 100 mg 08/27/18 10:00 08/27/18 10:21 Provigil PO 100 mg QAM LENCHO Administration Multi-Ingred Cream/Lotion/Oil/Oint 1 applic 08/13/18 12:21 08/17/18 00:41 Artificial Tears Ophth Oint OU 1 applic Q4HR PRN Administration Dry Eye(s) Ondansetron HCl 4 mg 08/13/18 01:34 Zofran IV Q8H PRN Nausea And Vomiting Simple Syrup 15 ml 08/25/18 18:36 Simple Syrup FEEDTUBE PRN PRN Hypoglycemia Simple Syrup 30 ml 08/25/18 18:36 Simple Syrup FEEDTUBE PRN PRN Hypoglycemia Sodium Bicarbonate 325 mg 08/25/18 18:36 Sodium Bicarbonate FEEDTUBE PRN PRN For Clogged Feeding Tube Sodium Chloride 10 ml 08/13/18 10:00 08/27/18 10:22 Sodium Chloride Flush Syringe 10 Ml IV 10 ml BID LENCHO Administration Sodium Chloride 10 ml 08/13/18 01:34 Sodium Chloride Flush Syringe 10 Ml IV PRN PRN LINE FLUSH
[2018-08-27] MEDS: LOVENOX SUB-Q SCH (21:06)
[2018-08-28] MEDS: HumaLOG SUB-Q SCH ×6 (02:18→22:47)
[2018-08-28] MEDS: D5W 1,000 ML IV SCH (03:31)
[2018-08-28 07:51] LABS: BUN/Creatinine Ratio 24; Blood Urea Nitrogen 19 mg/dL (9-20); Calcium 7.7 mg/dL (8.4-10.2); Hemolysis Index 0
[2018-08-28] MEDS: KEPPRA PO SCH ×2 (09:18→22:46)
[2018-08-28] MEDS: ASPIRIN PO SCH (09:19)
[2018-08-28] MEDS: PROVIGIL PO SCH (09:19)
[2018-08-28] MEDS: PEPCID PO SCH ×2 (09:19→22:46)
[2018-08-28] MEDS: SODIUM CHLORIDE FLUSH SYRINGE 10 ML IV SCH ×2 (09:19→22:48)
--- NOTE | 2018-08-28 10:55 | Progress Note ---
Assessment and Plan Assessment and plan: Cardiopulmonary arrest x 3: Most likely related to mucus plugging >NSTEMI, lead ing to severe irreversible brain damage: supportive care, CCM following. Acute on chronic respiratory failure on mechanical ventilation >96 hours: Trach has been removed when patient was orally intubated, continue ventilator management per pulmonology. Tracheostomy was replaced by surgery on 08/25/18. Tracheostomy care, airway clearance, secretion management Right pneumothorax, resolved: Status post chest tube, mgt per pulmonology Hypoxic encephalopathy: neurology consult appreciated, poor prognosis, poor likelihood of recovery, preserved brain stem function otherwise unresponsive. EEG is suggestive hypoxic encephalopathy. Hypertension. labetalol twice a day. Hypernatremia/free water deficits, Continue free water via G-tube, sp hypotonic IV solution, monitor bmp closely Acute kidney injury likely due to ATN Nephrology following, continue IV fluid, avoid renal toxic agents NSTEMI: treated with IV heparin, asa, statin, no bblocker due to bradycardia, hypotension, Cardiology is following Severe protein calorie malnutrition: Dietitian consulted, continue tube feedings UTI/sepsis: Continue antibiotics, follow-up urine cultures-->no growth x 48 hours Type 2 dm with persistent hyperglycemia: cont insulins and adjust according, on tube feedings Anemia: s/p transfusion Urinary retention: continue douglass, condom cath DVT prophylaxis; patient is fully anticoagulated on heparin drip Disposition. LTAC referral. The high probability of a clinically significant, sudden or life threatening deterioration of the [neurology and respiratory] system(s) required my full and direct attention, intervention and personal management. The aggregate critical care time was [32] minutes. This time is in addition to time spent performing reported procedures but includes the following: [x] Data Review and interpretation [x] Patient assessment and monitoring of vital signs [x] Documentation [x] Medication orders and management History Interval history: Patient is a 77 yo man from [facility] with a history of respiratory failure, CVA with tracheostomy and Gtube who presented to [facility] ED following cardiac arrest after being found unresponsive at the [facility]. Time down is unknown per records. The patient is on the vent and unresponsive, all history is obtained from the chart. Patient had multiple episodes of arrest/pulselessness. He has been on the vent since then without any improvement. Per ER notes the patient was bagged via tracheostomy which continued to have low tidal volumes and so the patient with orally intubated after which tidal volumes improved. I spoke with and daughter, Felicita and they believe that he aspirated with a mucus plug that caused the cardiopulmonary arrest not NSTEMI.. Initially, he went to [facility] may 05 to june 05, he had fluid on brain and multiple strokes per family and they drained the fluid off the brain. The trach was placed at [facility] and patient went to [facility], x 7 weeks (trach was changed where capped was placed), he was doing well, talking and sitting up. Then he went to [facility], August 03 and his oral care was horrible. The trach care was horrible and not enough suctioning done. Mouth with copious amount of crud. Then on August 12, Friday, he had voice changing and mucus plugging. Followed by respiratory arrest. The NM brain flow scan showed reduced blood flow. Patient had evaluation by neurology who reports patient with intact brainstem function. Hospitalist Physical - Constitutional Vitals: Temp Pulse Resp BP Pulse Ox 97.3 F L 64 12 160/73 100 08/28/18 08:00 08/28/18 10:00 08/28/18 10:00 08/28/18 10:00 08/28/18 10:00 General appearance: Present: other (twitching, nonresponsive, intubated) - EENT Eyes: Present: PERRL, EOM intact ENT: hearing intact, clear oral mucosa, dentition normal - Neck Neck: Present: supple, normal ROM - Respiratory Respiratory effort: normal Respiratory: bilateral: CTA - Cardiovascular Rhythm: regular Heart Sounds: Present: S1 & S2. Absent: gallop, rub - Extremities Extremities: no ischemia, No edema, Full ROM - Abdominal General gastrointestinal: soft, non-tender, non-distended, normal bowel sounds - Integumentary Integumentary: Present: clear, warm, dry - Neurologic Neurologic: other (unresponsive) Results - Labs CBC & Chem 7: 08/26/18 04:39 08/28/18 07:15 Labs: Laboratory Last Values WBC 7.6 K/mm3 (4.5-11.0) 08/26/18 04:39 RBC 2.96 M/mm3 (3.65-5.03) L 08/26/18 04:39 Hgb 8.3 gm/dl (11.8-15.2) L 08/26/18 04:39 Hct 25.7 % (35.5-45.6) L 08/26/18 04:39 MCV 87 fl (84-94) 08/26/18 04:39 MCH 28 pg (28-32) 08/26/18 04:39 MCHC 32 % (32-34) 08/26/18 04:39 RDW 18.2 % (13.2-15.2) H 08/26/18 04:39 Plt Count 305 K/mm3 (140-440) 08/26/18 04:39 Lymph % (Auto) 10.5 % (13.4-35.0) L 08/26/18 04:39 Isabela % (Auto) 9.3 % (0.0-7.3) H 08/26/18 04:39 Eos % (Auto) 2.6 % (0.0-4.3) 08/26/18 04:39 Baso % (Auto) 0.6 % (0.0-1.8) 08/26/18 04:39 Lymph # 0.8 K/mm3 (1.2-5.4) L 08/26/18 04:39 Isabela # 0.7 K/mm3 (0.0-0.8) 08/26/18 04:39 Eos # 0.2 K/mm3 (0.0-0.4) 08/26/18 04:39 Baso # 0.0 K/mm3 (0.0-0.1) 08/26/18 04:39 Add Manual Diff Complete 08/12/18 21:44 Total Counted 100 08/12/18 21:44 Seg Neutrophils % 77.0 % (40.0-70.0) H 08/26/18 04:39 Seg Neuts % (Manual) 44.0 % (40.0-70.0) 08/12/18 21:44 0 % 08/12/18 21:44 48.0 % (13.4-35.0) H 08/12/18 21:44 Reactive Lymphs % (Man) 0 % 08/12/18 21:44 2.0 % (0.0-7.3) 08/12/18 21:44 1.0 % (0.0-4.3) 08/12/18 21:44 0 % (0.0-1.8) 08/12/18 21:44 1.0 % 08/12/18 21:44 4.0 % 08/12/18 21:44 0 % 08/12/18 21:44 0 % 08/12/18 21:44 Nucleated RBC % Not Reportable 08/12/18 21:44 Seg Neutrophils # 5.8 K/mm3 (1.8-7.7) 08/26/18 04:39 Seg Neutrophils # Man 6.8 K/mm3 (1.8-7.7) 08/12/18 21:44 Band Neutrophils # 0.0 K/mm3 08/12/18 21:44 7.4 K/mm3 (1.2-5.4) H 08/12/18 21:44 Abs React Lymphs (Man) 0.0 K/mm3 08/12/18 21:44 0.3 K/mm3 (0.0-0.8) 08/12/18 21:44 0.2 K/mm3 (0.0-0.4) 08/12/18 21:44 0.0 K/mm3 (0.0-0.1) 08/12/18 21:44 0.2 K/mm3 08/12/18 21:44 0.6 K/mm3 08/12/18 21:44 0.0 K/mm3 08/12/18 21:44 Blast Cells # 0.0 K/mm3 08/12/18 21:44 WBC Morphology Not Reportable 08/12/18 21:44 Hypersegmented Neuts Not Reportable 08/12/18 21:44 Hyposegmented Neuts Not Reportable 08/12/18 21:44 Hypogranular Neuts Not Reportable 08/12/18 21:44 Not Reportable 08/12/18 21:44 Not Reportable 08/12/18 21:44 Not Reportable 08/12/18 21:44 Not Reportable 08/12/18 21:44 Not Reportable 08/12/18 21:44 Not Reportable 08/12/18 21:44 Consistent w auto 08/12/18 21:44 Not Reportable 08/12/18 21:44 Plt Clumps, EDTA Not Reportable 08/12/18 21:44 Not Reportable 08/12/18 21:44 Not Reportable 08/12/18 21:44 Not Reportable 08/12/18 21:44 Plt Morphology Comment Not Reportable 08/12/18 21:44 RBC Morphology Not Reportable 08/12/18 21:44 Dimorphic RBCs Not Reportable 08/12/18 21:44 Not Reportable 08/12/18 21:44 Not Reportable 08/12/18 21:44 Not Reportable 08/12/18 21:44 Few 08/12/18 21:44 Not Reportable 08/12/18 21:44 Not Reportable 08/12/18 21:44 Not Reportable 08/12/18 21:44 Not Reportable 08/12/18 21:44 Not Reportable 08/12/18 21:44 Not Reportable 08/12/18 21:44 Not Reportable 08/12/18 21:44 Few 08/12/18 21:44 Not Reportable 08/12/18 21:44 Not Reportable 08/12/18 21:44 Not Reportable 08/12/18 21:44 Not Reportable 08/12/18 21:44 Not Reportable 08/12/18 21:44 Not Reportable 08/12/18 21:44 Few 08/12/18 21:44 Acanthocytes (Spur) Not Reportable 08/12/18 21:44 Rouleaux Not Reportable 08/12/18 21:44 Not Reportable 08/12/18 21:44 Not Reportable 08/12/18 21:44 Not Reportable 08/12/18 21:44 Not Reportable 08/12/18 21:44 Hem Pathologist Commnt No 08/12/18 21:44 PT 16.5 Sec. (12.2-14.9) H 08/13/18 00:47 INR 1.25 (0.87-1.13) H 08/13/18 00:47 APTT 79.0 Sec. (24.2-36.6) H* 08/15/18 06:35 2742.50 ng/mlDDU (0-234) H 08/13/18 20:07 Heparin Anti-Xa Level 0.26 U.I./ml (0.3-0.7) L 08/16/18 20:01 POC ABG pH 7.439 (7.35-7.45) 08/27/18 20:09 POC ABG pCO2 38.3 (35-45) 08/27/18 20:09 POC ABG pO2 130 (80-105) H 08/27/18 20:09 POC ABG HCO3 26.0 (22-26 mml/L) 08/27/18 20:09 POC ABG Total CO2 27 (23-27mmol/L) 08/27/18 20:09 POC ABG O2 Sat 99 08/27/18 20:09 POC ABG Base Excess 2 ((-2) - (+3)mmol/L) 08/27/18 20:09 28 % 08/27/18 20:09 Sodium 143 mmol/L (137-145) 08/28/18 07:15 Potassium 3.7 mmol/L (3.6-5.0) 08/28/18 07:15 Chloride 106.6 mmol/L (98-107) 08/28/18 07:15 Carbon Dioxide 28 mmol/L (22-30) 08/28/18 07:15 12 mmol/L 08/28/18 07:15 BUN 19 mg/dL (9-20) 08/28/18 07:15 0.8 mg/dL (0.8-1.5) 08/28/18 07:15 Estimated GFR > 60 ml/min 08/28/18 07:15 24 % 08/28/18 07:15 Glucose 198 mg/dL (75-100) H 08/28/18 07:15 POC Glucose 221 (70-105) H 08/28/18 05:56 Lactic Acid 2.80 mmol/L (0.7-2.0) H* 08/13/18 12:53 Calcium 7.7 mg/dL (8.4-10.2) L 08/28/18 07:15 Phosphorus 3.90 mg/dL (2.5-4.5) 08/15/18 04:05 Magnesium 2.20 mg/dL (1.7-2.3) 08/15/18 04:05 0.30 mg/dL (0.1-1.2) 08/14/18 04:03 AST 50 units/L (5-40) H 08/14/18 04:03 ALT 55 units/L (7-56) 08/14/18 04:03 219 units/L (35-129) H 08/14/18 04:03 309 units/L (55-170) H 08/13/18 10:10 CK-MB (CK-2) 4.1 ng/mL (0.0-4.0) H 08/13/18 10:10 CK-MB (CK-2) Rel Index 1.3 (0-4) 08/13/18 10:10 0.409 ng/mL (0.00-0.029) H* 08/14/18 04:03 16.90 mg/dL (0.00-1.30) H 08/13/18 12:53 6.2 g/dL (6.3-8.2) L 08/14/18 04:03 1.9 g/dL (3.9-5) L 08/14/18 04:03 0.4 % 08/14/18 04:03 Triglycerides 62 mg/dL (2-149) 08/13/18 00:32 Cholesterol 46 mg/dL (50-199) L 08/13/18 00:32 17 mg/dL (50-130) L 08/13/18 00:32 6 mg/dL (40-59) L 08/13/18 00:32 7.66 % 08/13/18 00:32 TSH 0.973 mlU/mL (0.270-4.200) 08/26/18 09:00 Free T4 0.51 ng/dL (0.76-1.46) L 08/26/18 09:00 Yellow (Yellow) 08/25/18 12:40 Turbid (Clear) 08/25/18 12:40 7.0 (5.0-7.0) 08/25/18 12:40 Ur Specific [place] 1.009 (1.003-1.030) 08/25/18 12:40 100 mg/dl mg/dL (Negative) 08/25/18 12:40 Neg mg/dL (Negative) 08/25/18 12:40 Neg mg/dL (Negative) 08/25/18 12:40 Mod (Negative) 08/25/18 12:40 Neg (Negative) 08/25/18 12:40 Neg (Negative) 08/25/18 12:40 < 2.0 mg/dL (<2.0) 08/25/18 12:40 Ur Leukocyte Esterase Lg (Negative) 08/25/18 12:40 > 182.0 /HPF (0.0-6.0) H 08/25/18 12:40 10.0 /HPF (0.0-6.0) 08/25/18 12:40 U Epithel Cells (Auto) 5.0 /HPF (0-13.0) 08/25/18 12:40 2+ /HPF (Negative) 08/13/18 00:50 3+ /HPF 08/25/18 12:40 None seen (None Seen) 08/14/18 17:20 60.9 mg/dL (0.1-20.0) H 08/14/18 17:20 32 mmol/L 08/14/18 17:20 64 mg/dL (5-11.8) H 08/14/18 17:20 Presumptive negative 08/12/18 21:30 Presumptive negative 08/12/18 21:30 Ur Barbiturates Screen Presumptive negative 08/12/18 21:30 Ur Phencyclidine Scrn Presumptive negative 08/12/18 21:30 Ur Amphetamines Screen Presumptive negative 08/12/18 21:30 U Benzodiazepines Scrn Presumptive negative 08/12/18 21:30 Presumptive negative 08/12/18 21:30 U Marijuana (THC) Screen Presumptive negative 08/12/18 21:30 Disclamer 08/12/18 21:30 Blood Type O POSITIVE 08/15/18 15:31 Antibody Screen Negative 08/15/18 15:31 Crossmatch See Detail 08/15/18 15:31 Active Medications - Current Medications Current Medications: Generic Name Dose Route Start Last Admin Trade Name Freq PRN Reason Stop Dose Admin Acetaminophen 650 mg 08/13/18 11:40 08/13/18 16:09 Tylenol PO 650 mg Q6H PRN Administration Fever >101 Lipase/Protease/Amylase 1 each 08/25/18 18:[address] 10,500 Unit FEEDTUBE PRN PRN For Clogged Feeding Tube Aspirin 325 mg 08/17/18 10:00 08/28/18 09:19 Aspirin PO 325 mg QDAY LENCHO Administration Atorvastatin Calcium 40 mg 08/14/18 22:00 08/27/18 21:06 Lipitor PO 40 mg QHS LENCHO Administration Dextrose 50 ml 08/13/18 01:34 D50w (25gm) Syringe IV PRN PRN Hypoglycemia Enoxaparin Sodium 40 mg 08/17/18 22:00 08/27/18 21:06 Lovenox SUB-Q 40 mg QDAY@2200 LENCHO Administration Famotidine 20 mg 08/19/18 10:00 08/28/18 09:19 Pepcid PO 20 mg BID LENCHO Administration Hydrophilic Ointment 1 applic 08/13/18 12:21 Vaseline Lip Therapy TP Q2HR PRN Dry Lips Dextrose 1,000 mls @ 60 mls/hr 08/27/18 09:00 08/28/18 03:31 D5w IV 60 mls/hr DIRECT LENCHO Administration Insulin Human Lispro 0 unit 08/26/18 10:00 08/28/18 09:24 Humalog SUB-Q 2 unit Q4HR LENCHO Administration Protocol Levetiracetam 500 mg 08/27/18 22:00 08/28/18 09:18 Keppra PO 500 mg BID LENCHO Administration Modafinil 100 mg 08/27/18 10:00 08/28/18 09:19 Provigil PO 100 mg QAM LENCHO Administration Multi-Ingred Cream/Lotion/Oil/Oint 1 applic 08/13/18 12:21 08/17/18 00:41 Artificial Tears Ophth Oint OU 1 applic Q4HR PRN Administration Dry Eye(s) Ondansetron HCl 4 mg 08/13/18 01:34 Zofran IV Q8H PRN Nausea And Vomiting Simple Syrup 15 ml 08/25/18 18:36 Simple Syrup FEEDTUBE PRN PRN Hypoglycemia Simple Syrup 30 ml 08/25/18 18:36 Simple Syrup FEEDTUBE PRN PRN Hypoglycemia Sodium Bicarbonate 325 mg 08/25/18 18:36 Sodium Bicarbonate FEEDTUBE PRN PRN For Clogged Feeding Tube Sodium Chloride 10 ml 08/13/18 10:00 08/28/18 09:19 Sodium Chloride Flush Syringe 10 Ml IV 10 ml BID LENCHO Administration Sodium Chloride 10 ml 08/13/18 01:34 Sodium Chloride Flush Syringe 10 Ml IV PRN PRN LINE FLUSH Nutrition/Malnutrition Assess - Dietary Evaluation Nutrition/Malnutrition Findings: Nutrition Notes Start: 08/13/18 15:41 Freq: Status: Active Protocol: Document 08/27/18 09:21 LP (Rec: 08/27/18 09:28 LP [id number]) Nutrition Notes Initial or Follow up Reassessment Current Diagnosis Acute Kidney Injury,Diabetes Other Pertinent Diagnosis UTI, Hx CVA, PEG, Sacral PU, Multiple PU, Anoxic brain injury,R pneumothorax Current Diet Vital 1.2 at 60 ml/hr Labs/Tests Reviewed Pertinent Medications Reviewed Height 5 ft 8 in Weight 78.6 kg [place] Body Weight (kg) 70.00 BMI 26.3 Subjective/Other Information Pt tolerating TF at 40ml/hr so far but had 270ml residual earlier. Percent of energy/protein needs met: 64%/84% Burn Absent Trauma Absent #1 Nutrition Diagnosis Inadequate oral intake Diagnosis Progress(for reassessment Continues documentation) Is patient on ventilator? Yes Is Patient Ambulatory and/or Out of Bed No REE-([facility]-confined to bed) 1783.140 Calculation Used for Recommendations [facility] Additional Notes Protein Needs: 87-145g (1.2-2g /kg) Fluid Needs: 1 ml/kcal Nutrition Intervention Change Diet Order: TF Nutrition Support: Vital 1.2 at 60 ml/hr. Water flush of 250ml q4h for hypernatremia and 100 mls q 4 hrs once resolved. Kcal 1,728 Protein (gm) 108 Fluid (mL) 1,167 Add Supplement/Snack (indicate name/kcal Magen BID /protein ) Provides kCal: 190 Provides Protein (gm) 5 Goal #1 Meet at least 80% of calorie and protein needs via TF Anticipated Discharge Needs: TF Follow-Up By: 08/31/18 Additional Comments Follow for TF tolerance at goal
--- NOTE | 2018-08-28 13:10 | Progress Note ---
Assessment and Plan Acute hypoxemic respiratory failure on chronic. Status post cardiac arrest. Seizure disorder with breakthrough seizures. History of diabetes. History of cerebrovascular accident. Oropharyngeal dysphagia. History of seizures. (AMS is rate limiting step to safe extubation at this point) - continue daily SBT's as tolerated (rest on AC mode qhs for now) - prn ABG's at this point - continue Keppra for seizures with prn ativan IV for breakthrough (now dosed at 500mg IV bid) - continue provigil - continue bronchodilators with routine trach care and pulmonary hygiene per RT - neurology evaluation ongoing (pupils reactive sluggishly) - sedation target for RASS 0 to -1 (daily SAT's as tolerated) - continue GI & VTE prophylaxis - continue to wean supplemental oxygen to keep O2 sats 88-90% - Lung protective strategies - VAP bundle addressed - Continue cardioprotective measures - Replete electrolytes as indicated - Continue to rest at night on full MVS - Monitor renal indices closely - Avoid nephrotoxic agents, adjust all medications for CrCL - Strict intake and output monitoring - continue enteral nutrition as tolerated - continue accuchecks with glycemic control per SSI for target glucose of 140- 180 mg/dL - Maintenance of sleep -wake cycle - Mobility as tolerated by hemodynamics - Influenza and pneumonia vaccination per protocol PROGNOSIS: GUARDED CONDITION: CRITICAL CODE STATUS: FULL CODE The high probability of a clinically significant, sudden or life-threatening deterioration of the [respiratory, neurology, renal] system(s) required my full and direct attention, intervention and personal management. The aggregate critical care time was [32] minutes without overlap. Time includes spent on; [x] Data Review and interpretation [x] Patient assessment and monitoring of vital signs [x] Documentation [x] Medication orders and management Subjective Date of service: 08/28/18 Principal diagnosis: Acute hypoxemic resp failure; S/P cardiac arrest; Seizures; DM II; H/O CVA Interval history: Patient is seen today for: Acute hypoxemic respiratory failure on chronic; Status post cardiac arrest; Seizure disorder with breakthrough seizures; History of diabetes; History of cerebrovascular accident; Oropharyngeal dysphagia; History of seizures. Seen and examined at bedside; 24hour events reviewed; nursing and respiratory care staff consulted; no adverse overnight events reported to me; remains on MVS; tolerating SBT better with increase in set apnea limit; AMS is persistent; no emesis or overt aspiration Objective Vital Signs - 12hr 08/28/18 08/28/18 08/28/18 02:00 03:00 03:22 Temperature 97.9 F Pulse Rate 65 62 Pulse Rate [ From Monitor] Respiratory 11 L 13 Rate Blood Pressure 164/68 149/71 O2 Sat by Pulse 100 100 Oximetry 08/28/18 08/28/18 08/28/18 04:00 04:01 04:54 Temperature Pulse Rate 62 62 Pulse Rate [ 62 From Monitor] Respiratory 13 13 Rate Blood Pressure 154/74 145/71 O2 Sat by Pulse 100 100 100 Oximetry 08/28/18 08/28/18 08/28/18 05:00 06:01 07:00 Temperature Pulse Rate 63 62 62 Pulse Rate [ From Monitor] Respiratory 12 14 13 Rate Blood Pressure 145/71 125/71 136/73 O2 Sat by Pulse 100 100 100 Oximetry 08/28/18 08/28/18 08/28/18 08:00 08:01 08:09 Temperature 97.3 F L Pulse Rate 65 Pulse Rate [ From Monitor] Respiratory 12 Rate Blood Pressure 175/73 O2 Sat by Pulse 100 100 Oximetry 08/28/18 08/28/18 08/28/18 09:00 09:44 10:00 Temperature Pulse Rate 65 64 64 Pulse Rate [ From Monitor] Respiratory 14 12 Rate Blood Pressure 154/71 157/76 160/73 O2 Sat by Pulse 100 100 100 Oximetry 08/28/18 08/28/18 08/28/18 11:01 11:31 12:00 Temperature 97.5 F L Pulse Rate 61 60 59 L Pulse Rate [ From Monitor] Respiratory 12 11 L 11 L Rate Blood Pressure 182/78 184/76 193/81 O2 Sat by Pulse 100 100 100 Oximetry Constitutional: no acute distress, other (Elderly looking AAM, normocephalic resting in bed on MVS) Eyes: non-icteric ENT: oropharynx moist, other (s/p tracheostomy) Neck: supple, no lymphadenopathy, no JVD, other (s/p tracheostomy) Effort: mildly labored Ascultation: Bilateral: diminished breath sounds, rhonchi Percussion: Bilateral: not dull Cardiovascular: regular rate and rhythm Gastrointestinal: normoactive bowel sounds, soft, non-tender, non-distended Integumentary: normal Extremities: no cyanosis, pulses normal, no ischemia or petechiae, edema (trace ) Neurologic: unable to assess, other (slight pupillary constriction to light) Psychiatric: other (unable to assess) CBC and BMP: 08/26/18 04:39 08/28/18 07:15 ABG, PT/INR, D-dimer: ABG POC ABG pH 7.439 (7.35-7.45) 08/27/18 20:09 POC ABG pCO2 38.3 (35-45) 08/27/18 20:09 POC ABG pO2 130 (80-105) H 08/27/18 20:09 POC ABG HCO3 26.0 (22-26 mml/L) 08/27/18 20:09 POC ABG Total CO2 27 (23-27mmol/L) 08/27/18 20:09 POC ABG O2 Sat 99 08/27/18 20:09 PT/INR, D-dimer PT 16.5 Sec. (12.2-14.9) H 08/13/18 00:47 INR 1.25 (0.87-1.13) H 08/13/18 00:47 2742.50 ng/mlDDU (0-234) H 08/13/18 20:07 Abnormal lab findings: Abnormal Labs 08/12/18 08/12/18 08/12/18 21:44 21:44 21:44 WBC 15.5 H RBC 3.12 L Hgb 8.8 L Hct 28.9 L MCHC 31 L RDW 19.5 H Lymph % (Auto) [place] % (Auto) Lymph # [place] # Seg Neutrophils % Lymphocytes % (Manual) 48.0 H Seg Neutrophils # Lymphocytes # (Manual) 7.4 H PT 17.8 H INR 1.37 H APTT D-Dimer Heparin Anti-Xa Level POC ABG pH POC ABG pCO2 POC ABG pO2 Sodium 159 H Potassium Chloride 118.5 H Carbon Dioxide BUN 34 H Creatinine Glucose 161 H POC Glucose Lactic Acid Calcium Magnesium AST Alkaline Phosphatase Total Creatine Kinase CK-MB (CK-2) Troponin T 0.105 H* C-Reactive Protein Total Protein Albumin Cholesterol LDL Cholesterol Direct HDL Cholesterol Free T4 Urine WBC (Auto) Urine Creatinine Urine Total Protein Crossmatch 08/13/18 08/13/18 08/13/18 00:32 00:47 00:47 WBC RBC Hgb 9.2 L Hct 29.6 L MCHC RDW Lymph % (Auto) [place] % (Auto) Lymph # [place] # Seg Neutrophils % Lymphocytes % (Manual) Seg Neutrophils # Lymphocytes # (Manual) PT 16.5 H INR 1.25 H APTT 37.3 H D-Dimer Heparin Anti-Xa Level POC ABG pH POC ABG pCO2 POC ABG pO2 Sodium Potassium Chloride Carbon Dioxide BUN Creatinine Glucose POC Glucose Lactic Acid Calcium Magnesium AST Alkaline Phosphatase Total Creatine Kinase 211 H CK-MB (CK-2) 7.7 H Troponin T 0.169 H* D C-Reactive Protein Total Protein Albumin Cholesterol 46 L LDL Cholesterol Direct 17 L HDL Cholesterol 6 L Free T4 Urine WBC (Auto) Urine Creatinine Urine Total Protein Crossmatch 08/13/18 08/13/18 08/13/18 00:50 02:25 05:34 WBC RBC Hgb Hct MCHC RDW Lymph % (Auto) [place] % (Auto) Lymph # [place] # Seg Neutrophils % Lymphocytes % (Manual) Seg Neutrophils # Lymphocytes # (Manual) PT INR APTT D-Dimer Heparin Anti-Xa Level POC ABG pH 7.503 H POC ABG pCO2 POC ABG pO2 253 H Sodium Potassium Chloride Carbon Dioxide BUN Creatinine Glucose POC Glucose Lactic Acid Calcium Magnesium AST Alkaline Phosphatase Total Creatine Kinase 311 H CK-MB (CK-2) 10.4 H Troponin T 0.283 H* D C-Reactive Protein Total Protein Albumin Cholesterol LDL Cholesterol Direct HDL Cholesterol Free T4 Urine WBC (Auto) > 182.0 H Urine Creatinine Urine Total Protein Crossmatch 08/13/18 08/13/18 08/13/18 06:35 10:10 10:10 WBC RBC Hgb Hct MCHC RDW Lymph % (Auto) [place] % (Auto) Lymph # [place] # Seg Neutrophils % Lymphocytes % (Manual) Seg Neutrophils # Lymphocytes # (Manual) PT INR APTT D-Dimer Heparin Anti-Xa Level POC ABG pH 7.554 H POC ABG pCO2 33.5 L POC ABG pO2 220 H Sodium 158 H Potassium Chloride 117.1 H Carbon Dioxide BUN 53 H Creatinine 2.0 H Glucose 247 H POC Glucose Lactic Acid Calcium 8.2 L Magnesium AST Alkaline Phosphatase Total Creatine Kinase 309 H CK-MB (CK-2) 4.1 H Troponin T 0.470 H* D C-Reactive Protein Total Protein Albumin Cholesterol LDL Cholesterol Direct HDL Cholesterol Free T4 Urine WBC (Auto) Urine Creatinine Urine Total Protein Crossmatch 08/13/18 08/13/18 08/13/18 12:53 12:53 17:55 WBC RBC Hgb Hct MCHC RDW Lymph % (Auto) [place] % (Auto) Lymph # [place] # Seg Neutrophils % Lymphocytes % (Manual) Seg Neutrophils # Lymphocytes # (Manual) PT INR APTT D-Dimer Heparin Anti-Xa Level POC ABG pH POC ABG pCO2 POC ABG pO2 Sodium Potassium Chloride Carbon Dioxide BUN Creatinine Glucose POC Glucose 308 H Lactic Acid 2.80 H* Calcium Magnesium 2.50 H AST Alkaline Phosphatase Total Creatine Kinase CK-MB (CK-2) Troponin T C-Reactive Protein 16.90 H Total Protein Albumin Cholesterol LDL Cholesterol Direct HDL Cholesterol Free T4 Urine WBC (Auto) Urine Creatinine Urine Total Protein Crossmatch 08/13/18 08/13/18 08/13/18 20:07 21:16 23:17 WBC RBC Hgb Hct MCHC RDW Lymph % (Auto) [place] % (Auto) Lymph # [place] # Seg Neutrophils % Lymphocytes % (Manual) Seg Neutrophils # Lymphocytes # (Manual) PT INR APTT D-Dimer 2742.50 H Heparin Anti-Xa Level POC ABG pH 7.483 H POC ABG pCO2 30.8 L POC ABG pO2 150 H Sodium Potassium Chloride Carbon Dioxide BUN Creatinine Glucose POC Glucose 245 H Lactic Acid Calcium Magnesium AST Alkaline Phosphatase Total Creatine Kinase CK-MB (CK-2) Troponin T C-Reactive Protein Total Protein Albumin Cholesterol LDL Cholesterol Direct HDL Cholesterol Free T4 Urine WBC (Auto) Urine Creatinine Urine Total Protein Crossmatch 08/14/18 08/14/18 08/14/18 04:03 04:03 04:56 WBC 18.2 H RBC 2.62 L Hgb 7.3 L Hct 24.5 L MCHC RDW 18.9 H Lymph % (Auto) [place] % (Auto) Lymph # [place] # 1.2 H Seg Neutrophils % 79.4 H Lymphocytes % (Manual) Seg Neutrophils # 14.5 H Lymphocytes # (Manual) PT INR APTT D-Dimer Heparin Anti-Xa Level POC ABG pH POC ABG pCO2 33.5 L POC ABG pO2 153 H Sodium 152 H Potassium 3.4 L Chloride 113.8 H Carbon Dioxide BUN 72 H Creatinine 2.7 H Glucose 239 H POC Glucose Lactic Acid Calcium 7.6 L Magnesium AST 50 H Alkaline Phosphatase 219 H Total Creatine Kinase CK-MB (CK-2) Troponin T 0.409 H* C-Reactive Protein Total Protein 6.2 L Albumin 1.9 L Cholesterol LDL Cholesterol Direct HDL Cholesterol Free T4 Urine WBC (Auto) Urine Creatinine Urine Total Protein Crossmatch 08/14/18 08/14/18 08/14/18 05:18 13:38 15:35 WBC RBC Hgb Hct MCHC RDW Lymph % (Auto) [place] % (Auto) Lymph # [place] # Seg Neutrophils % Lymphocytes % (Manual) Seg Neutrophils # Lymphocytes # (Manual) PT INR APTT D-Dimer Heparin Anti-Xa Level POC ABG pH POC ABG pCO2 POC ABG pO2 Sodium 150 H Potassium 3.2 L Chloride 114.5 H Carbon Dioxide BUN 69 H Creatinine 2.3 H Glucose 247 H POC Glucose 242 H 296 H Lactic Acid Calcium 7.2 L Magnesium AST Alkaline Phosphatase Total Creatine Kinase CK-MB (CK-2) Troponin T C-Reactive Protein Total Protein Albumin Cholesterol LDL Cholesterol Direct HDL Cholesterol Free T4 Urine WBC (Auto) Urine Creatinine Urine Total Protein Crossmatch 08/14/18 08/14/18 08/14/18 17:01 17:20 23:47 WBC RBC Hgb Hct MCHC RDW Lymph % (Auto) [place] % (Auto) Lymph # [place] # Seg Neutrophils % Lymphocytes % (Manual) Seg Neutrophils # Lymphocytes # (Manual) PT INR APTT D-Dimer Heparin Anti-Xa Level POC ABG pH POC ABG pCO2 POC ABG pO2 Sodium Potassium Chloride Carbon Dioxide BUN Creatinine Glucose POC Glucose 261 H 280 H Lactic Acid Calcium Magnesium AST Alkaline Phosphatase Total Creatine Kinase CK-MB (CK-2) Troponin T C-Reactive Protein Total Protein Albumin Cholesterol LDL Cholesterol Direct HDL Cholesterol Free T4 Urine WBC (Auto) Urine Creatinine 60.9 H Urine Total Protein 64 H Crossmatch 08/15/18 08/15/18 08/15/18 04:05 04:05 04:05 WBC RBC Hgb 6.3 L Hct 19.7 L* MCHC RDW Lymph % (Auto) [place] % (Auto) Lymph # [place] # Seg Neutrophils % Lymphocytes % (Manual) Seg Neutrophils # Lymphocytes # (Manual) PT INR APTT D-Dimer Heparin Anti-Xa Level 0.17 L POC ABG pH POC ABG pCO2 POC ABG pO2 Sodium 146 H Potassium 3.0 L Chloride 110.6 H Carbon Dioxide BUN 64 H Creatinine 2.2 H Glucose 231 H POC Glucose Lactic Acid Calcium 7.1 L Magnesium AST Alkaline Phosphatase Total Creatine Kinase CK-MB (CK-2) Troponin T C-Reactive Protein Total Protein Albumin Cholesterol LDL Cholesterol Direct HDL Cholesterol Free T4 Urine WBC (Auto) Urine Creatinine Urine Total Protein Crossmatch 08/15/18 08/15/18 08/15/18 05:21 05:26 06:35 WBC RBC Hgb Hct MCHC RDW Lymph % (Auto) [place] % (Auto) Lymph # [place] # Seg Neutrophils % Lymphocytes % (Manual) Seg Neutrophils # Lymphocytes # (Manual) PT INR APTT 79.0 H* D-Dimer Heparin Anti-Xa Level POC ABG pH 7.494 H POC ABG pCO2 POC ABG pO2 155 H Sodium Potassium Chloride Carbon Dioxide BUN Creatinine Glucose POC Glucose 271 H Lactic Acid Calcium Magnesium AST Alkaline Phosphatase Total Creatine Kinase CK-MB (CK-2) Troponin T C-Reactive Protein Total Protein Albumin Cholesterol LDL Cholesterol Direct HDL Cholesterol Free T4 Urine WBC (Auto) Urine Creatinine Urine Total Protein Crossmatch 08/15/18 08/15/18 08/15/18 12:10 15:31 17:27 WBC RBC Hgb Hct MCHC RDW Lymph % (Auto) [place] % (Auto) Lymph # [place] # Seg Neutrophils % Lymphocytes % (Manual) Seg Neutrophils # Lymphocytes # (Manual) PT INR APTT D-Dimer Heparin Anti-Xa Level POC ABG pH POC ABG pCO2 POC ABG pO2 Sodium Potassium Chloride Carbon Dioxide BUN Creatinine Glucose POC Glucose 301 H 287 H Lactic Acid Calcium Magnesium AST Alkaline Phosphatase Total Creatine Kinase CK-MB (CK-2) Troponin T C-Reactive Protein Total Protein Albumin Cholesterol LDL Cholesterol Direct HDL Cholesterol Free T4 Urine WBC (Auto) Urine Creatinine Urine Total Protein Crossmatch See Detail 08/15/18 08/15/18 08/16/18 21:41 23:45 04:13 WBC RBC Hgb Hct MCHC RDW Lymph % (Auto) [place] % (Auto) Lymph # [place] # Seg Neutrophils % Lymphocytes % (Manual) Seg Neutrophils # Lymphocytes # (Manual) PT INR APTT D-Dimer Heparin Anti-Xa Level 0.19 L POC ABG pH POC ABG pCO2 32.1 L POC ABG pO2 107 H Sodium Potassium Chloride Carbon Dioxide BUN Creatinine Glucose POC Glucose 163 H Lactic Acid Calcium Magnesium AST Alkaline Phosphatase Total Creatine Kinase CK-MB (CK-2) Troponin T C-Reactive Protein Total Protein Albumin Cholesterol LDL Cholesterol Direct HDL Cholesterol Free T4 Urine WBC (Auto) Urine Creatinine Urine Total Protein Crossmatch 08/16/18 08/16/18 08/16/18 04:50 05:28 11:30 WBC RBC 2.67 L Hgb 8.1 L Hct 23.4 L MCHC 35 H RDW 18.3 H Lymph % (Auto) [place] % (Auto) Lymph # [place] # Seg Neutrophils % Lymphocytes % (Manual) Seg Neutrophils # Lymphocytes # (Manual) PT INR APTT D-Dimer Heparin Anti-Xa Level 0.19 L POC ABG pH POC ABG pCO2 POC ABG pO2 Sodium Potassium Chloride Carbon Dioxide BUN Creatinine Glucose POC Glucose 141 H Lactic Acid Calcium Magnesium AST Alkaline Phosphatase Total Creatine Kinase CK-MB (CK-2) Troponin T C-Reactive Protein Total Protein Albumin Cholesterol LDL Cholesterol Direct HDL Cholesterol Free T4 Urine WBC (Auto) Urine Creatinine Urine Total Protein Crossmatch 08/16/18 08/16/18 08/16/18 11:30 12:00 12:01 WBC RBC Hgb Hct MCHC RDW Lymph % (Auto) [place] % (Auto) Lymph # [place] # Seg Neutrophils % Lymphocytes % (Manual) Seg Neutrophils # Lymphocytes # (Manual) PT INR APTT D-Dimer Heparin Anti-Xa Level 0.15 L POC ABG pH POC ABG pCO2 POC ABG pO2 Sodium Potassium Chloride 107.8 H Carbon Dioxide 21 L BUN 47 H Creatinine 1.6 H Glucose 221 H POC Glucose 267 H Lactic Acid Calcium 6.9 L Magnesium AST Alkaline Phosphatase Total Creatine Kinase CK-MB (CK-2) Troponin T C-Reactive Protein Total Protein Albumin Cholesterol LDL Cholesterol Direct HDL Cholesterol Free T4 Urine WBC (Auto) Urine Creatinine Urine Total Protein Crossmatch 08/16/18 08/16/18 08/16/18 17:23 20:01 23:13 WBC RBC Hgb Hct MCHC RDW Lymph % (Auto) [place] % (Auto) Lymph # [place] # Seg Neutrophils % Lymphocytes % (Manual) Seg Neutrophils # Lymphocytes # (Manual) PT INR APTT D-Dimer Heparin Anti-Xa Level 0.26 L POC ABG pH POC ABG pCO2 POC ABG pO2 Sodium Potassium Chloride Carbon Dioxide BUN Creatinine Glucose POC Glucose 245 H 256 H Lactic Acid Calcium Magnesium AST Alkaline Phosphatase Total Creatine Kinase CK-MB (CK-2) Troponin T C-Reactive Protein Total Protein Albumin Cholesterol LDL Cholesterol Direct HDL Cholesterol Free T4 Urine WBC (Auto) Urine Creatinine Urine Total Protein Crossmatch 08/17/18 08/17/18 08/17/18 04:29 04:55 05:34 WBC RBC Hgb 8.2 L Hct 24.3 L MCHC RDW Lymph % (Auto) [place] % (Auto) Lymph # [place] # Seg Neutrophils % Lymphocytes % (Manual) Seg Neutrophils # Lymphocytes # (Manual) PT INR APTT D-Dimer Heparin Anti-Xa Level POC ABG pH POC ABG pCO2 32.4 L POC ABG pO2 108 H Sodium Potassium Chloride Carbon Dioxide BUN Creatinine Glucose POC Glucose 268 H Lactic Acid Calcium Magnesium AST Alkaline Phosphatase Total Creatine Kinase CK-MB (CK-2) Troponin T C-Reactive Protein Total Protein Albumin Cholesterol LDL Cholesterol Direct HDL Cholesterol Free T4 Urine WBC (Auto) Urine Creatinine Urine Total Protein Crossmatch 08/17/18 08/17/18 08/17/18 11:54 13:44 17:24 WBC RBC Hgb Hct MCHC RDW Lymph % (Auto) [place] % (Auto) Lymph # [place] # Seg Neutrophils % Lymphocytes % (Manual) Seg Neutrophils # Lymphocytes # (Manual) PT INR APTT D-Dimer Heparin Anti-Xa Level POC ABG pH POC ABG pCO2 32.7 L POC ABG pO2 142 H Sodium Potassium Chloride Carbon Dioxide BUN Creatinine Glucose POC Glucose 295 H 283 H Lactic Acid Calcium Magnesium AST Alkaline Phosphatase Total Creatine Kinase CK-MB (CK-2) Troponin T C-Reactive Protein Total Protein Albumin Cholesterol LDL Cholesterol Direct HDL Cholesterol Free T4 Urine WBC (Auto) Urine Creatinine Urine Total Protein Crossmatch 08/18/18 08/18/18 08/18/18 00:05 00:59 04:15 WBC RBC Hgb Hct MCHC RDW Lymph % (Auto) [place] % (Auto) Lymph # [place] # Seg Neutrophils % Lymphocytes % (Manual) Seg Neutrophils # Lymphocytes # (Manual) PT INR APTT D-Dimer Heparin Anti-Xa Level POC ABG pH POC ABG pCO2 POC ABG pO2 115 H Sodium Potassium Chloride Carbon Dioxide BUN Creatinine Glucose POC Glucose 247 H 251 H Lactic Acid Calcium Magnesium AST Alkaline Phosphatase Total Creatine Kinase CK-MB (CK-2) Troponin T C-Reactive Protein Total Protein Albumin Cholesterol LDL Cholesterol Direct HDL Cholesterol Free T4 Urine WBC (Auto) Urine Creatinine Urine Total Protein Crossmatch 08/18/18 08/18/18 08/18/18 05:02 12:20 17:51 WBC RBC Hgb Hct MCHC RDW Lymph % (Auto) [place] % (Auto) Lymph # [place] # Seg Neutrophils % Lymphocytes % (Manual) Seg Neutrophils # Lymphocytes # (Manual) PT INR APTT D-Dimer Heparin Anti-Xa Level POC ABG pH POC ABG pCO2 POC ABG pO2 Sodium Potassium Chloride Carbon Dioxide BUN Creatinine Glucose POC Glucose 282 H 209 H 261 H Lactic Acid Calcium Magnesium AST Alkaline Phosphatase Total Creatine Kinase CK-MB (CK-2) Troponin T C-Reactive Protein Total Protein Albumin Cholesterol LDL Cholesterol Direct HDL Cholesterol Free T4 Urine WBC (Auto) Urine Creatinine Urine Total Protein Crossmatch 08/18/18 08/19/18 08/19/18 23:30 04:54 05:16 WBC RBC 2.62 L Hgb 7.5 L Hct 23.1 L MCHC RDW 18.1 H Lymph % (Auto) [place] % (Auto) Lymph # [place] # Seg Neutrophils % Lymphocytes % (Manual) Seg Neutrophils # Lymphocytes # (Manual) PT INR APTT D-Dimer Heparin Anti-Xa Level POC ABG pH POC ABG pCO2 POC ABG pO2 58 L Sodium Potassium Chloride Carbon Dioxide BUN Creatinine Glucose POC Glucose 231 H Lactic Acid Calcium Magnesium AST Alkaline Phosphatase Total Creatine Kinase CK-MB (CK-2) Troponin T C-Reactive Protein Total Protein Albumin Cholesterol LDL Cholesterol Direct HDL Cholesterol Free T4 Urine WBC (Auto) Urine Creatinine Urine Total Protein Crossmatch 08/19/18 08/19/18 08/19/18 05:16 05:40 11:56 WBC RBC Hgb Hct MCHC RDW Lymph % (Auto) [place] % (Auto) Lymph # [place] # Seg Neutrophils % Lymphocytes % (Manual) Seg Neutrophils # Lymphocytes # (Manual) PT INR APTT D-Dimer Heparin Anti-Xa Level POC ABG pH POC ABG pCO2 POC ABG pO2 Sodium 152 H D Potassium Chloride 118.7 H Carbon Dioxide BUN 38 H Creatinine Glucose 220 H POC Glucose 227 H 213 H Lactic Acid Calcium 8.1 L D Magnesium AST Alkaline Phosphatase Total Creatine Kinase CK-MB (CK-2) Troponin T C-Reactive Protein Total Protein Albumin Cholesterol LDL Cholesterol Direct HDL Cholesterol Free T4 Urine WBC (Auto) Urine Creatinine Urine Total Protein Crossmatch 08/19/18 08/19/18 08/20/18 18:37 23:32 04:38 WBC RBC Hgb Hct MCHC RDW Lymph % (Auto) [place] % (Auto) Lymph # [place] # Seg Neutrophils % Lymphocytes % (Manual) Seg Neutrophils # Lymphocytes # (Manual) PT INR APTT D-Dimer Heparin Anti-Xa Level POC ABG pH POC ABG pCO2 POC ABG pO2 140 H Sodium Potassium Chloride Carbon Dioxide BUN Creatinine Glucose POC Glucose 227 H 245 H Lactic Acid Calcium Magnesium AST Alkaline Phosphatase Total Creatine Kinase CK-MB (CK-2) Troponin T C-Reactive Protein Total Protein Albumin Cholesterol LDL Cholesterol Direct HDL Cholesterol Free T4 Urine WBC (Auto) Urine Creatinine Urine Total Protein Crossmatch 08/20/18 08/20/18 08/20/18 05:31 05:37 05:37 WBC RBC 2.60 L Hgb 7.5 L Hct 22.9 L MCHC RDW 18.4 H Lymph % (Auto) [place] % (Auto) Lymph # [place] # Seg Neutrophils % Lymphocytes % (Manual) Seg Neutrophils # Lymphocytes # (Manual) PT INR APTT D-Dimer Heparin Anti-Xa Level POC ABG pH POC ABG pCO2 POC ABG pO2 Sodium 150 H Potassium Chloride 115.6 H Carbon Dioxide BUN 38 H Creatinine Glucose 276 H POC Glucose 266 H Lactic Acid Calcium 7.9 L Magnesium AST Alkaline Phosphatase Total Creatine Kinase CK-MB (CK-2) Troponin T C-Reactive Protein Total Protein Albumin Cholesterol LDL Cholesterol Direct HDL Cholesterol Free T4 Urine WBC (Auto) Urine Creatinine Urine Total Protein Crossmatch 08/20/18 08/20/18 08/20/18 14:01 18:20 23:11 WBC RBC Hgb Hct MCHC RDW Lymph % (Auto) [place] % (Auto) Lymph # [place] # Seg Neutrophils % Lymphocytes % (Manual) Seg Neutrophils # Lymphocytes # (Manual) PT INR APTT D-Dimer Heparin Anti-Xa Level POC ABG pH POC ABG pCO2 POC ABG pO2 Sodium Potassium Chloride Carbon Dioxide BUN Creatinine Glucose POC Glucose 305 H 271 H 218 H Lactic Acid Calcium Magnesium AST Alkaline Phosphatase Total Creatine Kinase CK-MB (CK-2) Troponin T C-Reactive Protein Total Protein Albumin Cholesterol LDL Cholesterol Direct HDL Cholesterol Free T4 Urine WBC (Auto) Urine Creatinine Urine Total Protein Crossmatch 08/21/18 08/21/18 08/21/18 04:41 04:41 06:20 WBC RBC 2.65 L Hgb 7.6 L Hct 23.3 L MCHC RDW 19.1 H Lymph % (Auto) [place] % (Auto) Lymph # [place] # Seg Neutrophils % Lymphocytes % (Manual) Seg Neutrophils # Lymphocytes # (Manual) PT INR APTT D-Dimer Heparin Anti-Xa Level POC ABG pH POC ABG pCO2 POC ABG pO2 Sodium 150 H Potassium Chloride 117.8 H Carbon Dioxide BUN 37 H Creatinine Glucose 233 H POC Glucose 262 H Lactic Acid Calcium 7.9 L Magnesium AST Alkaline Phosphatase Total Creatine Kinase CK-MB (CK-2) Troponin T C-Reactive Protein Total Protein Albumin Cholesterol LDL Cholesterol Direct HDL Cholesterol Free T4 Urine WBC (Auto) Urine Creatinine Urine Total Protein Crossmatch 08/21/18 08/21/18 08/21/18 10:18 12:04 12:36 WBC RBC Hgb Hct MCHC RDW Lymph % (Auto) [place] % (Auto) Lymph # [place] # Seg Neutrophils % Lymphocytes % (Manual) Seg Neutrophils # Lymphocytes # (Manual) PT INR APTT D-Dimer Heparin Anti-Xa Level POC ABG pH POC ABG pCO2 POC ABG pO2 Sodium Potassium Chloride Carbon Dioxide BUN Creatinine Glucose POC Glucose 256 H 245 H 255 H Lactic Acid Calcium Magnesium AST Alkaline Phosphatase Total Creatine Kinase CK-MB (CK-2) Troponin T C-Reactive Protein Total Protein Albumin Cholesterol LDL Cholesterol Direct HDL Cholesterol Free T4 Urine WBC (Auto) Urine Creatinine Urine Total Protein Crossmatch 08/21/18 08/21/18 08/22/18 17:36 23:29 05:01 WBC RBC Hgb Hct MCHC RDW Lymph % (Auto) [place] % (Auto) Lymph # [place] # Seg Neutrophils % Lymphocytes % (Manual) Seg Neutrophils # Lymphocytes # (Manual) PT INR APTT D-Dimer Heparin Anti-Xa Level POC ABG pH 7.466 H POC ABG pCO2 33.8 L POC ABG pO2 111 H Sodium Potassium Chloride Carbon Dioxide BUN Creatinine Glucose POC Glucose 263 H 268 H Lactic Acid Calcium Magnesium AST Alkaline Phosphatase Total Creatine Kinase CK-MB (CK-2) Troponin T C-Reactive Protein Total Protein Albumin Cholesterol LDL Cholesterol Direct HDL Cholesterol Free T4 Urine WBC (Auto) Urine Creatinine Urine Total Protein Crossmatch 08/22/18 08/22/18 08/22/18 05:05 12:05 12:15 WBC RBC Hgb Hct MCHC RDW Lymph % (Auto) [place] % (Auto) Lymph # [place] # Seg Neutrophils % Lymphocytes % (Manual) Seg Neutrophils # Lymphocytes # (Manual) PT INR APTT D-Dimer Heparin Anti-Xa Level POC ABG pH POC ABG pCO2 POC ABG pO2 Sodium 147 H Potassium Chloride 113.2 H Carbon Dioxide BUN 36 H Creatinine Glucose 249 H POC Glucose 256 H 228 H Lactic Acid Calcium 8.2 L Magnesium AST Alkaline Phosphatase Total Creatine Kinase CK-MB (CK-2) Troponin T C-Reactive Protein Total Protein Albumin Cholesterol LDL Cholesterol Direct HDL Cholesterol Free T4 Urine WBC (Auto) Urine Creatinine Urine Total Protein Crossmatch 08/22/18 08/23/18 08/23/18 17:30 00:03 05:05 WBC RBC Hgb Hct MCHC RDW Lymph % (Auto) [place] % (Auto) Lymph # [place] # Seg Neutrophils % Lymphocytes % (Manual) Seg Neutrophils # Lymphocytes # (Manual) PT INR APTT D-Dimer Heparin Anti-Xa Level POC ABG pH POC ABG pCO2 POC ABG pO2 Sodium Potassium Chloride Carbon Dioxide BUN Creatinine Glucose POC Glucose 291 H 259 H 247 H Lactic Acid Calcium Magnesium AST Alkaline Phosphatase Total Creatine Kinase CK-MB (CK-2) Troponin T C-Reactive Protein Total Protein Albumin Cholesterol LDL Cholesterol Direct HDL Cholesterol Free T4 Urine WBC (Auto) Urine Creatinine Urine Total Protein Crossmatch 08/23/18 08/23/18 08/23/18 05:14 12:29 17:21 WBC RBC Hgb Hct MCHC RDW Lymph % (Auto) [place] % (Auto) Lymph # [place] # Seg Neutrophils % Lymphocytes % (Manual) Seg Neutrophils # Lymphocytes # (Manual) PT INR APTT D-Dimer Heparin Anti-Xa Level POC ABG pH POC ABG pCO2 POC ABG pO2 Sodium Potassium Chloride Carbon Dioxide BUN Creatinine Glucose POC Glucose 208 H 138 H 175 H Lactic Acid Calcium Magnesium AST Alkaline Phosphatase Total Creatine Kinase CK-MB (CK-2) Troponin T C-Reactive Protein Total Protein Albumin Cholesterol LDL Cholesterol Direct HDL Cholesterol Free T4 Urine WBC (Auto) Urine Creatinine Urine Total Protein Crossmatch 08/23/18 08/24/18 08/24/18 23:36 01:00 05:50 WBC RBC 2.92 L 2.90 L Hgb 8.3 L 8.2 L Hct 25.4 L 25.2 L MCHC RDW 18.9 H 18.6 H Lymph % (Auto) [place] % (Auto) 9.2 H Lymph # [place] # Seg Neutrophils % Lymphocytes % (Manual) Seg Neutrophils # Lymphocytes # (Manual) PT INR APTT D-Dimer Heparin Anti-Xa Level POC ABG pH POC ABG pCO2 POC ABG pO2 Sodium Potassium Chloride Carbon Dioxide BUN Creatinine Glucose POC Glucose 163 H Lactic Acid Calcium Magnesium AST Alkaline Phosphatase Total Creatine Kinase CK-MB (CK-2) Troponin T C-Reactive Protein Total Protein Albumin Cholesterol LDL Cholesterol Direct HDL Cholesterol Free T4 Urine WBC (Auto) Urine Creatinine Urine Total Protein Crossmatch 08/24/18 08/24/18 08/24/18 05:50 12:26 18:37 WBC RBC Hgb Hct MCHC RDW Lymph % (Auto) [place] % (Auto) Lymph # [place] # Seg Neutrophils % Lymphocytes % (Manual) Seg Neutrophils # Lymphocytes # (Manual) PT INR APTT D-Dimer Heparin Anti-Xa Level POC ABG pH POC ABG pCO2 POC ABG pO2 Sodium 147 H Potassium Chloride 113.6 H Carbon Dioxide BUN 33 H Creatinine Glucose 210 H POC Glucose 223 H 166 H Lactic Acid Calcium 8.3 L Magnesium AST Alkaline Phosphatase Total Creatine Kinase CK-MB (CK-2) Troponin T C-Reactive Protein Total Protein Albumin Cholesterol LDL Cholesterol Direct HDL Cholesterol Free T4 Urine WBC (Auto) Urine Creatinine Urine Total Protein Crossmatch 08/24/18 08/25/18 08/25/18 23:47 04:55 04:55 WBC RBC 2.94 L Hgb 8.4 L Hct 25.1 L MCHC RDW 18.2 H Lymph % (Auto) [place] % (Auto) Lymph # [place] # Seg Neutrophils % Lymphocytes % (Manual) Seg Neutrophils # Lymphocytes # (Manual) PT INR APTT D-Dimer Heparin Anti-Xa Level POC ABG pH POC ABG pCO2 POC ABG pO2 Sodium Potassium Chloride 110.2 H Carbon Dioxide BUN 30 H Creatinine Glucose POC Glucose 126 H Lactic Acid Calcium 8.1 L Magnesium AST Alkaline Phosphatase Total Creatine Kinase CK-MB (CK-2) Troponin T C-Reactive Protein Total Protein Albumin Cholesterol LDL Cholesterol Direct HDL Cholesterol Free T4 Urine WBC (Auto) Urine Creatinine Urine Total Protein Crossmatch 08/25/18 08/26/18 08/26/18 12:40 04:39 04:39 WBC RBC 2.96 L Hgb 8.3 L Hct 25.7 L MCHC RDW 18.2 H Lymph % (Auto) 10.5 L [place] % (Auto) 9.3 H Lymph # 0.8 L [place] # Seg Neutrophils % 77.0 H Lymphocytes % (Manual) Seg Neutrophils # Lymphocytes # (Manual) PT INR APTT D-Dimer Heparin Anti-Xa Level POC ABG pH POC ABG pCO2 POC ABG pO2 Sodium 147 H Potassium Chloride 113.5 H Carbon Dioxide BUN 27 H Creatinine 0.7 L Glucose 106 H POC Glucose Lactic Acid Calcium 8.0 L Magnesium AST Alkaline Phosphatase Total Creatine Kinase CK-MB (CK-2) Troponin T C-Reactive Protein Total Protein Albumin Cholesterol LDL Cholesterol Direct HDL Cholesterol Free T4 Urine WBC (Auto) > 182.0 H Urine Creatinine Urine Total Protein Crossmatch 08/26/18 08/26/18 08/26/18 05:27 09:00 09:54 WBC RBC Hgb Hct MCHC RDW Lymph % (Auto) [place] % (Auto) Lymph # [place] # Seg Neutrophils % Lymphocytes % (Manual) Seg Neutrophils # Lymphocytes # (Manual) PT INR APTT D-Dimer Heparin Anti-Xa Level POC ABG pH POC ABG pCO2 POC ABG pO2 Sodium Potassium Chloride Carbon Dioxide BUN Creatinine Glucose POC Glucose 120 H 170 H Lactic Acid Calcium Magnesium AST Alkaline Phosphatase Total Creatine Kinase CK-MB (CK-2) Troponin T C-Reactive Protein Total Protein Albumin Cholesterol LDL Cholesterol Direct HDL Cholesterol Free T4 0.51 L Urine WBC (Auto) Urine Creatinine Urine Total Protein Crossmatch 08/26/18 08/26/18 08/27/18 14:52 17:50 06:30 WBC RBC Hgb Hct MCHC RDW Lymph % (Auto) [place] % (Auto) Lymph # [place] # Seg Neutrophils % Lymphocytes % (Manual) Seg Neutrophils # Lymphocytes # (Manual) PT INR APTT D-Dimer Heparin Anti-Xa Level POC ABG pH POC ABG pCO2 POC ABG pO2 Sodium 150 H Potassium Chloride 114.8 H Carbon Dioxide BUN 24 H Creatinine 0.7 L Glucose 131 H POC Glucose 166 H 107 H Lactic Acid Calcium 7.8 L Magnesium AST Alkaline Phosphatase Total Creatine Kinase CK-MB (CK-2) Troponin T C-Reactive Protein Total Protein Albumin Cholesterol LDL Cholesterol Direct HDL Cholesterol Free T4 Urine WBC (Auto) Urine Creatinine Urine Total Protein Crossmatch 08/27/18 08/27/18 08/27/18 08:22 14:20 16:06 WBC RBC Hgb Hct MCHC RDW Lymph % (Auto) [place] % (Auto) Lymph # [place] # Seg Neutrophils % Lymphocytes % (Manual) Seg Neutrophils # Lymphocytes # (Manual) PT INR APTT D-Dimer Heparin Anti-Xa Level POC ABG pH POC ABG pCO2 POC ABG pO2 Sodium Potassium Chloride Carbon Dioxide BUN Creatinine Glucose POC Glucose 112 H 151 H 158 H Lactic Acid Calcium Magnesium AST Alkaline Phosphatase Total Creatine Kinase CK-MB (CK-2) Troponin T C-Reactive Protein Total Protein Albumin Cholesterol LDL Cholesterol Direct HDL Cholesterol Free T4 Urine WBC (Auto) Urine Creatinine Urine Total Protein Crossmatch 08/27/18 08/27/18 08/28/18 20:09 21:25 02:03 WBC RBC Hgb Hct MCHC RDW Lymph % (Auto) [place] % (Auto) Lymph # [place] # Seg Neutrophils % Lymphocytes % (Manual) Seg Neutrophils # Lymphocytes # (Manual) PT INR APTT D-Dimer Heparin Anti-Xa Level POC ABG pH POC ABG pCO2 POC ABG pO2 130 H Sodium Potassium Chloride Carbon Dioxide BUN Creatinine Glucose POC Glucose 226 H 250 H Lactic Acid Calcium Magnesium AST Alkaline Phosphatase Total Creatine Kinase CK-MB (CK-2) Troponin T C-Reactive Protein Total Protein Albumin Cholesterol LDL Cholesterol Direct HDL Cholesterol Free T4 Urine WBC (Auto) Urine Creatinine Urine Total Protein Crossmatch 08/28/18 08/28/18 05:56 07:15 WBC RBC Hgb Hct MCHC RDW Lymph % (Auto) [place] % (Auto) Lymph # [place] # Seg Neutrophils % Lymphocytes % (Manual) Seg Neutrophils # Lymphocytes # (Manual) PT INR APTT D-Dimer Heparin Anti-Xa Level POC ABG pH POC ABG pCO2 POC ABG pO2 Sodium Potassium Chloride Carbon Dioxide BUN Creatinine Glucose 198 H POC Glucose 221 H Lactic Acid Calcium 7.7 L Magnesium AST Alkaline Phosphatase Total Creatine Kinase CK-MB (CK-2) Troponin T C-Reactive Protein Total Protein Albumin Cholesterol LDL Cholesterol Direct HDL Cholesterol Free T4 Urine WBC (Auto) Urine Creatinine Urine Total Protein Crossmatch Allied health notes reviewed: nursing
[2018-08-28] MEDS: APRESOLINE PO SCH ×2 (13:15→22:44)
--- NOTE | 2018-08-28 14:02 | Progress Note ---
Assessment and Plan - Patient Problems (1) MAYLIN (acute kidney injury) Current Visit: Yes Status: Acute Plan to address problem: Acute kidney injury prerenal azotemia versus acute tubular necrosis. Kidney function improved. no further recommendations at present, will sign off. (2) Hypernatremia Current Visit: Yes Status: Acute Plan to address problem: resolved. cont free water flushes 250cc q4h (3) Acute and chronic respiratory failure Current Visit: Yes Status: Acute Qualifiers: Respiratory failure complication: hypoxia Qualified Code(s): J96.21 - Acute and chronic respiratory failure with hypoxia Plan to address problem: vent management as per pulmonary/CCM (4) Type 2 diabetes mellitus without complications Current Visit: Yes Status: Acute Plan to address problem: Blood sugar management by primary attending. (5) Essential (primary) hypertension Current Visit: Yes Status: Acute Plan to address problem: Blood pressure was low on presentation but has improved. Follow-up blood pressure Subjective Date of service: 08/28/18 Principal diagnosis: Acute hypoxemic resp failure; S/P cardiac arrest; Seizures; DM II; H/O CVA Interval history: pt remains on ventilator, unresponsive. Objective - Vital Signs Vital signs: Vital Signs - 12hr 08/28/18 08/28/18 08/28/18 03:00 03:22 04:00 Temperature 97.9 F Pulse Rate 62 Pulse Rate [ 62 From Monitor] Respiratory 13 13 Rate Blood Pressure 149/71 O2 Sat by Pulse 100 100 Oximetry 08/28/18 08/28/18 08/28/18 04:01 04:54 05:00 Temperature Pulse Rate 62 62 63 Pulse Rate [ From Monitor] Respiratory 13 12 Rate Blood Pressure 154/74 145/71 145/71 O2 Sat by Pulse 100 100 100 Oximetry 08/28/18 08/28/18 08/28/18 06:01 07:00 08:00 Temperature 97.3 F L Pulse Rate 62 62 Pulse Rate [ From Monitor] Respiratory 14 13 Rate Blood Pressure 125/71 136/73 O2 Sat by Pulse 100 100 Oximetry 08/28/18 08/28/18 08/28/18 08:01 08:09 09:00 Temperature Pulse Rate 65 65 Pulse Rate [ From Monitor] Respiratory 12 14 Rate Blood Pressure 175/73 154/71 O2 Sat by Pulse 100 100 100 Oximetry 08/28/18 08/28/18 08/28/18 09:44 10:00 11:01 Temperature Pulse Rate 64 64 61 Pulse Rate [ From Monitor] Respiratory 12 12 Rate Blood Pressure 157/76 160/73 182/78 O2 Sat by Pulse 100 100 100 Oximetry 08/28/18 08/28/18 08/28/18 11:31 12:00 13:15 Temperature 97.5 F L Pulse Rate 60 59 L Pulse Rate [ From Monitor] Respiratory 11 L 11 L Rate Blood Pressure 184/76 193/81 176/79 O2 Sat by Pulse 100 100 Oximetry - General Appearance General appearance: appears stated age, sedated on ventilator, intubated, comatose EENT: ATNC, mucous membranes moist Neck: no JVD Respiratory: Present: Clear to Ascultation Cardiology: regular, S1S2 Gastrointestinal: normoactive bowel sounds Integumentary: no rash, other (no edema ) Neurologic: other (intubated, unresponsive ) - Lab 08/26/18 04:39 08/28/18 07:15 Most recent lab results Calcium 7.7 mg/dL (8.4-10.2) L 08/28/18 07:15 Phosphorus 3.90 mg/dL (2.5-4.5) 08/15/18 04:05 Magnesium 2.20 mg/dL (1.7-2.3) 08/15/18 04:05 60.9 mg/dL (0.1-20.0) H 08/14/18 17:20 32 mmol/L 08/14/18 17:20 64 mg/dL (5-11.8) H 08/14/18 17:20 Medications & Allergies - Medications Allergies/Adverse Reactions: Allergies No Known Allergies Allergy (Verified 08/12/18 21:47) Home Medications: Home Medications Medication Instructions Recorded Confirmed Last Taken Type Acetaminophen TAB 2 1000units FEEDTUBE Q6HR PRN 08/18/18 08/18/18 Unknown History Amantadine [Symmetrel] 100 mg FEEDTUBE DAILY 08/18/18 08/18/18 08/13/18 History Amlodipine Besylate [Norvasc] 5 mg FEEDTUBE DAILY 08/18/18 08/18/18 08/13/18 History Ascorbic Acid [Vitamin C Oral Liq] 500 mg FEEDTUBE QDAY 08/18/18 08/18/18 08/13/18 History Ascorbic Acid [Vitamin C with Fiordaliza 1 tab FEEDTUBE DAILY 08/18/18 08/18/18 Unknown History Hips] Aspirin BABY CHEW TAB 1 tab FEEDTUBE DAILY 08/18/18 08/18/18 Unknown History Aspirin BABY CHEW TAB 81 mg FEEDTUBE DAILY 08/18/18 08/18/18 08/13/18 History Atorvastatin Calcium [Lipitor] 40 mg FEEDTUBE DAILY 08/18/18 08/18/18 08/13/18 History Benazepril HCl 10 mg FEEDTUBE DAILY 08/18/18 08/18/18 08/13/18 History Bisacodyl [Dulcolax suppos] 10 mg [place] QDAY PRN 08/18/18 08/18/18 Unknown History Docusate Sodium [Colace ORAL LIQ] 100 mg FEEDTUBE QDAY PRN 08/18/18 08/18/18 Unknown History Ferrous Sulfate [Ferrous Sulfate 7.5 ml FEEDTUBE DAILY 08/18/18 08/18/18 08/13/18 History 220 MG/5 ML] Glycopyrrolate [Robinul] 2 mg FEEDTUBE Q8H 08/18/18 08/18/18 08/13/18 History Heparin Sod,Porcine/0.9 % NaCl 5,000 units SUB-Q Q8H 08/18/18 08/18/18 Unknown History [Heparin 5,000 Unit/5 ml-Ns] Insulin Glargine,Hum.rec.anlog 40 unit SQ HS 08/18/18 08/18/18 08/12/18 History [Basaglar Kwikpen U-100] Lacosamide [Vimpat] 1 tab FEEDTUBE Q12HR 08/18/18 08/18/18 Unknown History Lipitor 10 mg FEEDTUBE DAILY 08/18/18 08/18/18 Unknown History Mag-Al Plus Suspension 5 ml FEEDTUBE Q4HR PRN 08/18/18 08/19/18 Unknown History Melatonin 3 mg FEEDTUBE HS 08/18/18 08/18/18 Unknown History Sucralfate [Carafate] 1 gm FEEDTUBE Q8H 08/18/18 08/18/18 08/13/18 History Tamsulosin 0.4 mg FEEDTUBE DAILY 08/18/18 08/18/18 Unknown History guaiFENesin 200 mg FEEDTUBE Q4H PRN 08/18/18 08/18/18 Unknown History Active Medications: Generic Name Dose Route Start Last Admin Trade Name Freq PRN Reason Stop Dose Admin Acetaminophen 650 mg 08/13/18 11:40 08/13/18 16:09 Tylenol PO 650 mg Q6H PRN Administration Fever >101 Lipase/Protease/Amylase 1 each 08/25/18 18:36 Pancreaze 10,500 Unit FEEDTUBE PRN PRN For Clogged Feeding Tube Aspirin 325 mg 08/17/18 10:00 08/28/18 09:19 Aspirin PO 325 mg QDAY LENCHO Administration Atorvastatin Calcium 40 mg 08/14/18 22:00 08/27/18 21:06 Lipitor PO 40 mg QHS LENCHO Administration Dextrose 50 ml 08/13/18 01:34 D50w (25gm) Syringe IV PRN PRN Hypoglycemia Enoxaparin Sodium 40 mg 08/17/18 22:00 08/27/18 21:06 Lovenox SUB-Q 40 mg QDAY@2200 LENCHO Administration Famotidine 20 mg 08/19/18 10:00 08/28/18 09:19 Pepcid PO 20 mg BID LENCHO Administration Hydralazine HCl 50 mg 08/28/18 14:00 08/28/18 13:15 Apresoline PO 50 mg Q8HR LENCHO Administration Hydrophilic Ointment 1 applic 08/13/18 12:21 Vaseline Lip Therapy TP Q2HR PRN Dry Lips Insulin Human Lispro 0 unit 08/26/18 10:00 08/28/18 13:15 Humalog SUB-Q 2 unit Q4HR LENCHO Administration Protocol Levetiracetam 500 mg 08/27/18 22:00 08/28/18 09:18 Keppra PO 500 mg BID LENCHO Administration Modafinil 100 mg 08/27/18 10:00 08/28/18 09:19 Provigil PO 100 mg QAM LENCHO Administration Multi-Ingred Cream/Lotion/Oil/Oint 1 applic 08/13/18 12:21 08/17/18 00:41 Artificial Tears Ophth Oint OU 1 applic Q4HR PRN Administration Dry Eye(s) Ondansetron HCl 4 mg 08/13/18 01:34 Zofran IV Q8H PRN Nausea And Vomiting Simple Syrup 15 ml 08/25/18 18:36 Simple Syrup FEEDTUBE PRN PRN Hypoglycemia Simple Syrup 30 ml 08/25/18 18:36 Simple Syrup FEEDTUBE PRN PRN Hypoglycemia Sodium Bicarbonate 325 mg 08/25/18 18:36 Sodium Bicarbonate FEEDTUBE PRN PRN For Clogged Feeding Tube Sodium Chloride 10 ml 08/13/18 10:00 08/28/18 09:19 Sodium Chloride Flush Syringe 10 Ml IV 10 ml BID LENCHO Administration Sodium Chloride 10 ml 08/13/18 01:34 Sodium Chloride Flush Syringe 10 Ml IV PRN PRN LINE FLUSH
[2018-08-28] MEDS ORDERED: NORMODYNE PO SCH (22:00)
[2018-08-28] MEDS: LOVENOX SUB-Q SCH (22:46)
[2018-08-29] MEDS: HumaLOG SUB-Q SCH ×6 (02:58→21:34)
[2018-08-29] MEDS: APRESOLINE PO SCH ×3 (06:30→21:33)
[2018-08-29] MEDS: PEPCID PO SCH ×2 (10:55→21:40)
[2018-08-29] MEDS: PROVIGIL PO SCH (10:55)
[2018-08-29] MEDS: KEPPRA PO SCH ×2 (10:55→21:32)
[2018-08-29] MEDS: ASPIRIN PO SCH (10:55)
[2018-08-29] MEDS: SODIUM CHLORIDE FLUSH SYRINGE 10 ML IV SCH ×3 (10:56→22:00)
--- NOTE | 2018-08-29 11:13 | Progress Note ---
Assessment and Plan Assessment and plan: Cardiopulmonary arrest x 3: Most likely related to mucus plugging >NSTEMI, lead ing to severe irreversible brain damage: supportive care, CCM following. Acute on chronic respiratory failure on mechanical ventilation >96 hours: Trach has been removed when patient was orally intubated, continue ventilator management per pulmonology. Tracheostomy was replaced by surgery on 08/25/18. Tracheostomy care, airway clearance, secretion management Right pneumothorax, resolved: Status post chest tube, mgt per pulmonology Hypoxic encephalopathy: neurology consult appreciated, poor prognosis, poor likelihood of recovery, preserved brain stem function otherwise unresponsive. EEG is suggestive hypoxic encephalopathy. Hypertension. Increase hydralazine 75 mg 3 times a day Hypernatremia/free water deficits, Continue free water via G-tube, sp hypotonic IV solution, monitor bmp closely Acute kidney injury likely due to ATN Nephrology following, continue IV fluid, avoid renal toxic agents NSTEMI: treated with IV heparin, asa, statin, no bblocker due to bradycardia, hypotension, Cardiology is following Severe protein calorie malnutrition: Dietitian consulted, continue tube feedings UTI/sepsis: Continue antibiotics, follow-up urine cultures-->no growth x 48 hours Type 2 dm with persistent hyperglycemia: cont insulins and adjust according, on tube feedings Anemia: s/p transfusion Urinary retention: continue douglass, condom cath DVT prophylaxis; patient is fully anticoagulated on heparin drip Disposition. LTAC referral. The high probability of a clinically significant, sudden or life threatening deterioration of the [neurology and respiratory] system(s) required my full and direct attention, intervention and personal management. The aggregate critical care time was [31] minutes. This time is in addition to time spent performing reported procedures but includes the following: [x] Data Review and interpretation [x] Patient assessment and monitoring of vital signs [x] Documentation [x] Medication orders and management History Interval history: Patient is a 77 yo man from [facility] with a history of respiratory failure, CVA with tracheostomy and Gtube who presented to [facility] ED following cardiac arrest after being found unresponsive at the retirement. Time down is unknown per records. The patient is on the vent and unresponsive, all history is obtained from the chart. Patient had multiple episodes of arrest/pulselessness. He has been on the vent since then without any improvement. Per ER notes the patient was bagged via tracheostomy which continued to have low tidal volumes and so the patient with orally intubated after which tidal volumes improved. I spoke with and daughter, Felicita and they believe that he aspirated with a mucus plug that caused the cardiopulmonary arrest not NSTEMI.. Initially, he went to [facility] may 05 to june 05, he had fluid on brain and multiple strokes per family and they drained the fluid off the brain. The trach was placed at [facility] and patient went to [facility], x 7 weeks (trach was changed where capped was placed), he was doing well, talking and sitting up. Then he went to [facility], August 03 and his oral care was horrible. The trach care was horrible and not enough suctioning done. Mouth with copious amount of crud. Then on August 12, Friday, he had voice changing and mucus plugging. Followed by respiratory arrest. The [place] brain flow scan showed reduced blood flow. Patient had evaluation by neurology who reports patient with intact brainstem function. Hospitalist Physical - Constitutional Vitals: Temp Pulse Resp BP Pulse Ox 97.4 F L 66 14 158/72 100 08/29/18 08:00 08/29/18 10:08/29/18 10:01 08/29/18 10:08/29/18 10:01 General appearance: Present: other (twitching, nonresponsive, intubated) - EENT Eyes: Present: PERRL, EOM intact ENT: hearing intact, clear oral mucosa, dentition normal - Neck Neck: Present: supple, normal ROM - Respiratory Respiratory effort: normal Respiratory: bilateral: CTA - Cardiovascular Rhythm: regular Heart Sounds: Present: S1 & S2. Absent: gallop, rub - Extremities Extremities: no ischemia, No edema, Full ROM - Abdominal General gastrointestinal: soft, non-tender, non-distended, normal bowel sounds - Integumentary Integumentary: Present: clear, warm, dry - Neurologic Neurologic: CNII-XII intact, moves all extremities Results - Labs CBC & Chem 7: 08/26/18 04:39 08/28/18 07:15 Labs: Laboratory Last Values WBC 7.6 K/mm3 (4.5-11.0) 08/26/18 04:39 RBC 2.96 M/mm3 (3.65-5.03) L 08/26/18 04:39 Hgb 8.3 gm/dl (11.8-15.2) L 08/26/18 04:39 Hct 25.7 % (35.5-45.6) L 08/26/18 04:39 MCV 87 fl (84-94) 08/26/18 04:39 MCH 28 pg (28-32) 08/26/18 04:39 MCHC 32 % (32-34) 08/26/18 04:39 RDW 18.2 % (13.2-15.2) H 08/26/18 04:39 Plt Count 305 K/mm3 (140-440) 08/26/18 04:39 Lymph % (Auto) 10.5 % (13.4-35.0) L 08/26/18 04:39 [place] % (Auto) 9.3 % (0.0-7.3) H 08/26/18 04:39 Eos % (Auto) 2.6 % (0.0-4.3) 08/26/18 04:39 Baso % (Auto) 0.6 % (0.0-1.8) 08/26/18 04:39 Lymph # 0.8 K/mm3 (1.2-5.4) L 08/26/18 04:39 [place] # 0.7 K/mm3 (0.0-0.8) 08/26/18 04:39 Eos # 0.2 K/mm3 (0.0-0.4) 08/26/18 04:39 Baso # 0.0 K/mm3 (0.0-0.1) 08/26/18 04:39 Add Manual Diff Complete 08/12/18 21:44 Total Counted 100 08/12/18 21:44 Seg Neutrophils % 77.0 % (40.0-70.0) H 08/26/18 04:39 Seg Neuts % (Manual) 44.0 % (40.0-70.0) 08/12/18 21:44 0 % 08/12/18 21:44 48.0 % (13.4-35.0) H 08/12/18 21:44 Reactive Lymphs % (Man) 0 % 08/12/18 21:44 2.0 % (0.0-7.3) 08/12/18 21:44 1.0 % (0.0-4.3) 08/12/18 21:44 0 % (0.0-1.8) 08/12/18 21:44 1.0 % 08/12/18 21:44 4.0 % 08/12/18 21:44 0 % 08/12/18 21:44 0 % 08/12/18 21:44 Nucleated RBC % Not Reportable 08/12/18 21:44 Seg Neutrophils # 5.8 K/mm3 (1.8-7.7) 08/26/18 04:39 Seg Neutrophils # Man 6.8 K/mm3 (1.8-7.7) 08/12/18 21:44 Band Neutrophils # 0.0 K/mm3 08/12/18 21:44 7.4 K/mm3 (1.2-5.4) H 08/12/18 21:44 Abs React Lymphs (Man) 0.0 K/mm3 08/12/18 21:44 0.3 K/mm3 (0.0-0.8) 08/12/18 21:44 0.2 K/mm3 (0.0-0.4) 08/12/18 21:44 0.0 K/mm3 (0.0-0.1) 08/12/18 21:44 0.2 K/mm3 08/12/18 21:44 0.6 K/mm3 08/12/18 21:44 0.0 K/mm3 08/12/18 21:44 Blast Cells # 0.0 K/mm3 08/12/18 21:44 WBC Morphology Not Reportable 08/12/18 21:44 Hypersegmented Neuts Not Reportable 08/12/18 21:44 Hyposegmented Neuts Not Reportable 08/12/18 21:44 Hypogranular Neuts Not Reportable 08/12/18 21:44 Not Reportable 08/12/18 21:44 Not Reportable 08/12/18 21:44 Not Reportable 08/12/18 21:44 Not Reportable 08/12/18 21:44 Not Reportable 08/12/18 21:44 Not Reportable 08/12/18 21:44 Consistent w auto 08/12/18 21:44 Not Reportable 08/12/18 21:44 Plt Clumps, EDTA Not Reportable 08/12/18 21:44 Not Reportable 08/12/18 21:44 Not Reportable 08/12/18 21:44 Not Reportable 08/12/18 21:44 Plt Morphology Comment Not Reportable 08/12/18 21:44 RBC Morphology Not Reportable 08/12/18 21:44 Dimorphic RBCs Not Reportable 08/12/18 21:44 Not Reportable 08/12/18 21:44 Not Reportable 08/12/18 21:44 Not Reportable 08/12/18 21:44 Few 08/12/18 21:44 Not Reportable 08/12/18 21:44 Not Reportable 08/12/18 21:44 Not Reportable 08/12/18 21:44 Not Reportable 08/12/18 21:44 Not Reportable 08/12/18 21:44 Not Reportable 08/12/18 21:44 Not Reportable 08/12/18 21:44 Few 08/12/18 21:44 Not Reportable 08/12/18 21:44 Not Reportable 08/12/18 21:44 Not Reportable 08/12/18 21:44 Not Reportable 08/12/18 21:44 Not Reportable 08/12/18 21:44 Not Reportable 08/12/18 21:44 Few 08/12/18 21:44 Acanthocytes (Spur) Not Reportable 08/12/18 21:44 Rouleaux Not Reportable 08/12/18 21:44 Not Reportable 08/12/18 21:44 Not Reportable 08/12/18 21:44 Not Reportable 08/12/18 21:44 Not Reportable 08/12/18 21:44 Hem Pathologist Commnt No 08/12/18 21:44 PT 16.5 Sec. (12.2-14.9) H 08/13/18 00:47 INR 1.25 (0.87-1.13) H 08/13/18 00:47 APTT 79.0 Sec. (24.2-36.6) H* 08/15/18 06:35 2742.50 ng/mlDDU (0-234) H 08/13/18 20:07 Heparin Anti-Xa Level 0.26 U.I./ml (0.3-0.7) L 08/16/18 20:01 POC ABG pH 7.457 (7.35-7.45) H 08/28/18 15:53 POC ABG pCO2 38.8 (35-45) 08/28/18 15:53 POC ABG pO2 97 (80-105) 08/28/18 15:53 POC ABG HCO3 27.4 (22-26 mml/L) 08/28/18 15:53 POC ABG Total CO2 29 (23-27mmol/L) 08/28/18 15:53 POC ABG O2 Sat 98 08/28/18 15:53 POC ABG Base Excess 4 ((-2) - (+3)mmol/L) 08/28/18 15:53 28 % 08/28/18 15:53 Sodium 143 mmol/L (137-145) 08/28/18 07:15 Potassium 3.7 mmol/L (3.6-5.0) 08/28/18 07:15 Chloride 106.6 mmol/L (98-107) 08/28/18 07:15 Carbon Dioxide 28 mmol/L (22-30) 08/28/18 07:15 12 mmol/L 08/28/18 07:15 BUN 19 mg/dL (9-20) 08/28/18 07:15 0.8 mg/dL (0.8-1.5) 08/28/18 07:15 Estimated GFR > 60 ml/min 08/28/18 07:15 24 % 08/28/18 07:15 Glucose 198 mg/dL (75-100) H 08/28/18 07:15 POC Glucose 223 (70-105) H 08/29/18 03:04 Lactic Acid 2.80 mmol/L (0.7-2.0) H* 08/13/18 12:53 Calcium 7.7 mg/dL (8.4-10.2) L 08/28/18 07:15 Phosphorus 3.90 mg/dL (2.5-4.5) 08/15/18 04:05 Magnesium 2.20 mg/dL (1.7-2.3) 08/15/18 04:05 0.30 mg/dL (0.1-1.2) 08/14/18 04:03 AST 50 units/L (5-40) H 08/14/18 04:03 ALT 55 units/L (7-56) 08/14/18 04:03 219 units/L (35-129) H 08/14/18 04:03 309 units/L (55-170) H 08/13/18 10:10 CK-MB (CK-2) 4.1 ng/mL (0.0-4.0) H 08/13/18 10:10 CK-MB (CK-2) Rel Index 1.3 (0-4) 08/13/18 10:10 0.409 ng/mL (0.00-0.029) H* 08/14/18 04:03 16.90 mg/dL (0.00-1.30) H 08/13/18 12:53 6.2 g/dL (6.3-8.2) L 08/14/18 04:03 1.9 g/dL (3.9-5) L 08/14/18 04:03 0.4 % 08/14/18 04:03 Triglycerides 62 mg/dL (2-149) 08/13/18 00:32 Cholesterol 46 mg/dL (50-199) L 08/13/18 00:32 17 mg/dL (50-130) L 08/13/18 00:32 6 mg/dL (40-59) L 08/13/18 00:32 7.66 % 08/13/18 00:32 TSH 0.973 mlU/mL (0.270-4.200) 08/26/18 09:00 Free T4 0.51 ng/dL (0.76-1.46) L 08/26/18 09:00 Yellow (Yellow) 08/25/18 12:40 Turbid (Clear) 08/25/18 12:40 7.0 (5.0-7.0) 08/25/18 12:40 Ur Specific [place] 1.009 (1.003-1.030) 08/25/18 12:40 100 mg/dl mg/dL (Negative) 08/25/18 12:40 Neg mg/dL (Negative) 08/25/18 12:40 Neg mg/dL (Negative) 08/25/18 12:40 Mod (Negative) 08/25/18 12:40 Neg (Negative) 08/25/18 12:40 Neg (Negative) 08/25/18 12:40 < 2.0 mg/dL (<2.0) 08/25/18 12:40 Ur Leukocyte Esterase Lg (Negative) 08/25/18 12:40 > 182.0 /HPF (0.0-6.0) H 08/25/18 12:40 10.0 /HPF (0.0-6.0) 08/25/18 12:40 U Epithel Cells (Auto) 5.0 /HPF (0-13.0) 08/25/18 12:40 2+ /HPF (Negative) 08/13/18 00:50 3+ /HPF 08/25/18 12:40 None seen (None Seen) 08/14/18 17:20 60.9 mg/dL (0.1-20.0) H 08/14/18 17:20 32 mmol/L 08/14/18 17:20 64 mg/dL (5-11.8) H 08/14/18 17:20 Presumptive negative 08/12/18 21:30 Presumptive negative 08/12/18 21:30 Ur Barbiturates Screen Presumptive negative 08/12/18 21:30 Ur Phencyclidine Scrn Presumptive negative 08/12/18 21:30 Ur Amphetamines Screen Presumptive negative 08/12/18 21:30 U Benzodiazepines Scrn Presumptive negative 08/12/18 21:30 Presumptive negative 08/12/18 21:30 U Marijuana (THC) Screen Presumptive negative 08/12/18 21:30 Disclamer 08/12/18 21:30 Blood Type O POSITIVE 08/15/18 15:31 Antibody Screen Negative 08/15/18 15:31 Crossmatch See Detail 08/15/18 15:31 Active Medications - Current Medications Current Medications: Generic Name Dose Route Start Last Admin Trade Name Freq PRN Reason Stop Dose Admin Acetaminophen 650 mg 08/13/18 11:40 08/13/18 16:09 Tylenol PO 650 mg Q6H PRN Administration Fever >101 Lipase/Protease/Amylase 1 each 08/25/18 18:36 Pancreaze 10,500 Unit FEEDTUBE PRN PRN For Clogged Feeding Tube Aspirin 325 mg 08/17/18 10:00 08/29/18 10:55 Aspirin PO 325 mg QDAY LENCHO Administration Atorvastatin Calcium 40 mg 08/14/18 22:00 08/28/18 22:46 Lipitor PO 40 mg QHS LENCHO Administration Dextrose 50 ml 08/13/18 01:34 D50w (25gm) Syringe IV PRN PRN Hypoglycemia Enoxaparin Sodium 40 mg 08/17/18 22:00 08/28/18 22:46 Lovenox SUB-Q 40 mg QDAY@2200 LENCHO Administration Famotidine 20 mg 08/19/18 10:00 08/29/18 10:55 Pepcid PO 20 mg BID LENCHO Administration Hydralazine HCl 50 mg 08/28/18 14:00 08/28/18 22:44 Apresoline PO 50 mg Q8HR LENCHO Administration Hydrophilic Ointment 1 applic 08/13/18 12:21 Vaseline Lip Therapy TP Q2HR PRN Dry Lips Insulin Human Lispro 0 unit 08/26/18 10:00 08/29/18 02:58 Humalog SUB-Q 3 unit Q4HR LENCHO Administration Protocol Levetiracetam 500 mg 08/27/18 22:00 08/29/18 10:55 Keppra PO 500 mg BID LENCHO Administration Modafinil 100 mg 08/27/18 10:00 08/29/18 10:55 Provigil PO 100 mg QAM LENCHO Administration Multi-Ingred Cream/Lotion/Oil/Oint 1 applic 08/13/18 12:21 08/17/18 00:41 Artificial Tears Ophth Oint OU 1 applic Q4HR PRN Administration Dry Eye(s) Ondansetron HCl 4 mg 08/13/18 01:34 Zofran IV Q8H PRN Nausea And Vomiting Simple Syrup 15 ml 08/25/18 18:36 Simple Syrup FEEDTUBE PRN PRN Hypoglycemia Simple Syrup 30 ml 08/25/18 18:36 Simple Syrup FEEDTUBE PRN PRN Hypoglycemia Sodium Bicarbonate 325 mg 08/25/18 18:36 Sodium Bicarbonate FEEDTUBE PRN PRN For Clogged Feeding Tube Sodium Chloride 10 ml 08/13/18 10:00 08/29/18 10:56 Sodium Chloride Flush Syringe 10 Ml IV 10 ml BID LENCHO Administration Sodium Chloride 10 ml 08/13/18 01:34 Sodium Chloride Flush Syringe 10 Ml IV PRN PRN LINE FLUSH Nutrition/Malnutrition Assess - Dietary Evaluation Nutrition/Malnutrition Findings: Nutrition Notes Start: 08/13/18 15:41 Freq: Status: Active Protocol: Document 08/27/18 09:21 LP (Rec: 08/27/18 09:28 LP [id number]) Nutrition Notes Initial or Follow up Reassessment Current Diagnosis Acute Kidney Injury,Diabetes Other Pertinent Diagnosis UTI, Hx CVA, PEG, Sacral PU, Multiple PU, Anoxic brain injury,R pneumothorax Current Diet Vital 1.2 at 60 ml/hr Labs/Tests Reviewed Pertinent Medications Reviewed Height 5 ft 8 in Weight 78.6 kg [place] Body Weight (kg) 70.00 BMI 26.3 Subjective/Other Information Pt tolerating TF at 40ml/hr so far but had 270ml residual earlier. Percent of energy/protein needs met: 64%/84% Burn Absent Trauma Absent #1 Nutrition Diagnosis Inadequate oral intake Diagnosis Progress(for reassessment Continues documentation) Is patient on ventilator? Yes Is Patient Ambulatory and/or Out of Bed No REE-([facility]-confined to bed) 1783.140 Calculation Used for Recommendations [facility] Additional Notes Protein Needs: 87-145g (1.2-2g /kg) Fluid Needs: 1 ml/kcal Nutrition Intervention Change Diet Order: TF Nutrition Support: Vital 1.2 at 60 ml/hr. Water flush of 250ml q4h for hypernatremia and 100 mls q 4 hrs once resolved. Kcal 1,728 Protein (gm) 108 Fluid (mL) 1,167 Add Supplement/Snack (indicate name/kcal Magen BID /protein ) Provides kCal: 190 Provides Protein (gm) 5 Goal #1 Meet at least 80% of calorie and protein needs via TF Anticipated Discharge Needs: TF Follow-Up By: 08/31/18 Additional Comments Follow for TF tolerance at goal
--- NOTE | 2018-08-29 14:45 | Progress Note ---
Assessment and Plan Acute hypoxemic respiratory failure on chronic. Status post cardiac arrest. Seizure disorder with breakthrough seizures. History of diabetes. History of cerebrovascular accident. Oropharyngeal dysphagia. History of seizures. - continue daily SBT's as tolerated (rest on AC mode qhs for now)[did not tolerate well today] - prn ABG's at this point - continue Keppra for seizures with prn ativan IV for breakthrough (now dosed at 500mg IV bid) - continue provigil - continue bronchodilators with routine trach care and pulmonary hygiene per RT - neurology evaluation ongoing (pupils reactive sluggishly) - sedation target for RASS 0 to -1 (daily SAT's as tolerated) - continue GI & VTE prophylaxis - continue to wean supplemental oxygen to keep O2 sats 88-90% - Lung protective strategies - VAP bundle addressed - Continue cardioprotective measures - Replete electrolytes as indicated - Continue to rest at night on full MVS - Monitor renal indices closely - Avoid nephrotoxic agents, adjust all medications for CrCL - Strict intake and output monitoring - continue enteral nutrition as tolerated - continue accuchecks with glycemic control per SSI for target glucose of 140- 180 mg/dL (re-introduce Lantus in am if sugars still running high) - Maintenance of sleep -wake cycle - Mobility as tolerated by hemodynamics - Influenza and pneumonia vaccination per protocol - discharge planning ongoing concurrently .... no family in room today PROGNOSIS: GUARDED CONDITION: CRITICAL CODE STATUS: FULL CODE The high probability of a clinically significant, sudden or life-threatening deterioration of the [respiratory, neurology, renal] system(s) required my full and direct attention, intervention and personal management. The aggregate critical care time was [34] minutes without overlap. Time includes spent on; [x] Data Review and interpretation [x] Patient assessment and monitoring of vital signs [x] Documentation [x] Medication orders and management Subjective Date of service: 08/29/18 Principal diagnosis: Acute hypoxemic resp failure; S/P cardiac arrest; Seizures; DM II; H/O CVA Interval history: Patient is seen today for: Acute hypoxemic respiratory failure on chronic; Status post cardiac arrest; Seizure disorder with breakthrough seizures; History of diabetes; History of cerebrovascular accident; Oropharyngeal dysphagia; History of seizures. Seen and examined at bedside; 24hour events reviewed; nursing and respiratory care staff consulted; no adverse overnight events reported to me; remains on MVS; AMS is persistent; sugars still running a little high; no seizures; tolerating tube feeds; no emesis or overt aspiration Objective Vital Signs - 12hr 08/29/18 08/29/18 08/29/18 03:01 03:30 04:00 Temperature Pulse Rate 68 64 67 Respiratory 13 14 14 Rate Blood Pressure 166/73 168/69 154/69 O2 Sat by Pulse 100 100 100 Oximetry O2 Sat by Pulse Oximetry [ Assessment] 08/29/18 08/29/18 08/29/18 04:15 04:30 05:00 Temperature Pulse Rate 67 67 68 Respiratory 14 15 Rate Blood Pressure 177/73 147/70 177/73 O2 Sat by Pulse 100 100 100 Oximetry O2 Sat by Pulse 100 Oximetry [ Assessment] 08/29/18 08/29/18 08/29/18 05:31 06:00 06:30 Temperature Pulse Rate 67 67 69 Respiratory 14 12 14 Rate Blood Pressure 158/73 151/76 152/73 O2 Sat by Pulse 100 100 100 Oximetry O2 Sat by Pulse Oximetry [ Assessment] 08/29/18 08/29/18 08/29/18 07:00 07:19 07:30 Temperature Pulse Rate 68 66 67 Respiratory 10 L 13 Rate Blood Pressure 146/71 146/71 150/73 O2 Sat by Pulse 100 100 100 Oximetry O2 Sat by Pulse Oximetry [ Assessment] 08/29/18 08/29/18 08/29/18 08:00 08:01 08:30 Temperature 97.4 F L Pulse Rate 67 66 Respiratory 12 13 Rate Blood Pressure 176/76 168/74 O2 Sat by Pulse 100 100 100 Oximetry O2 Sat by Pulse Oximetry [ Assessment] 08/29/18 08/29/18 08/29/18 09:00 09:30 10:00 Temperature Pulse Rate 67 67 65 Respiratory 13 13 Rate Blood Pressure 151/71 174/73 O2 Sat by Pulse 100 100 Oximetry O2 Sat by Pulse Oximetry [ Assessment] 08/29/18 08/29/18 08/29/18 10:01 10:30 11:00 Temperature Pulse Rate 66 66 66 Respiratory 14 13 13 Rate Blood Pressure 158/72 154/75 160/81 O2 Sat by Pulse 100 100 100 Oximetry O2 Sat by Pulse Oximetry [ Assessment] 08/29/18 08/29/18 08/29/18 11:30 12:00 12:01 Temperature 97.9 F Pulse Rate 66 65 Respiratory 13 12 13 Rate Blood Pressure 154/79 167/64 167/74 O2 Sat by Pulse 100 100 100 Oximetry O2 Sat by Pulse Oximetry [ Assessment] 08/29/18 12:27 Temperature Pulse Rate 62 Respiratory Rate Blood Pressure 175/71 O2 Sat by Pulse 100 Oximetry O2 Sat by Pulse Oximetry [ Assessment] Constitutional: no acute distress, other (Elderly looking AAM, normocephalic resting in bed on MVS) Eyes: non-icteric ENT: oropharynx moist, other (s/p tracheostomy) Neck: supple, no lymphadenopathy, no JVD, other (s/p tracheostomy) Effort: mildly labored Ascultation: Bilateral: diminished breath sounds, rhonchi Percussion: Bilateral: not dull Cardiovascular: regular rate and rhythm Gastrointestinal: normoactive bowel sounds, soft, non-tender, non-distended Integumentary: normal Extremities: no cyanosis, pulses normal, no ischemia or petechiae, edema (trace ) Neurologic: unable to assess, other (slight pupillary constriction to light) Psychiatric: other (unable to assess) CBC and BMP: 08/30/18 05:40 08/30/18 05:40 ABG, PT/INR, D-dimer: ABG POC ABG pH 7.457 (7.35-7.45) H 08/28/18 15:53 POC ABG pCO2 38.8 (35-45) 08/28/18 15:53 POC ABG pO2 97 (80-105) 08/28/18 15:53 POC ABG HCO3 27.4 (22-26 mml/L) 08/28/18 15:53 POC ABG Total CO2 29 (23-27mmol/L) 08/28/18 15:53 POC ABG O2 Sat 98 08/28/18 15:53 PT/INR, D-dimer PT 16.5 Sec. (12.2-14.9) H 08/13/18 00:47 INR 1.25 (0.87-1.13) H 08/13/18 00:47 2742.50 ng/mlDDU (0-234) H 08/13/18 20:07 Abnormal lab findings: Abnormal Labs 08/12/18 08/12/18 08/12/18 21:44 21:44 21:44 WBC 15.5 H RBC 3.12 L Hgb 8.8 L Hct 28.9 L MCHC 31 L RDW 19.5 H Lymph % (Auto) [place] % (Auto) Lymph # [place] # Seg Neutrophils % Lymphocytes % (Manual) 48.0 H Seg Neutrophils # Lymphocytes # (Manual) 7.4 H PT 17.8 H INR 1.37 H APTT D-Dimer Heparin Anti-Xa Level POC ABG pH POC ABG pCO2 POC ABG pO2 Sodium 159 H Potassium Chloride 118.5 H Carbon Dioxide BUN 34 H Creatinine Glucose 161 H POC Glucose Lactic Acid Calcium Magnesium AST Alkaline Phosphatase Total Creatine Kinase CK-MB (CK-2) Troponin T 0.105 H* C-Reactive Protein Total Protein Albumin Cholesterol LDL Cholesterol Direct HDL Cholesterol Free T4 Urine WBC (Auto) Urine Creatinine Urine Total Protein Crossmatch 08/13/18 08/13/18 08/13/18 00:32 00:47 00:47 WBC RBC Hgb 9.2 L Hct 29.6 L MCHC RDW Lymph % (Auto) [place] % (Auto) Lymph # [place] # Seg Neutrophils % Lymphocytes % (Manual) Seg Neutrophils # Lymphocytes # (Manual) PT 16.5 H INR 1.25 H APTT 37.3 H D-Dimer Heparin Anti-Xa Level POC ABG pH POC ABG pCO2 POC ABG pO2 Sodium Potassium Chloride Carbon Dioxide BUN Creatinine Glucose POC Glucose Lactic Acid Calcium Magnesium AST Alkaline Phosphatase Total Creatine Kinase 211 H CK-MB (CK-2) 7.7 H Troponin T 0.169 H* D C-Reactive Protein Total Protein Albumin Cholesterol 46 L LDL Cholesterol Direct 17 L HDL Cholesterol 6 L Free T4 Urine WBC (Auto) Urine Creatinine Urine Total Protein Crossmatch 08/13/18 08/13/18 08/13/18 00:50 02:25 05:34 WBC RBC Hgb Hct MCHC RDW Lymph % (Auto) [place] % (Auto) Lymph # [place] # Seg Neutrophils % Lymphocytes % (Manual) Seg Neutrophils # Lymphocytes # (Manual) PT INR APTT D-Dimer Heparin Anti-Xa Level POC ABG pH 7.503 H POC ABG pCO2 POC ABG pO2 253 H Sodium Potassium Chloride Carbon Dioxide BUN Creatinine Glucose POC Glucose Lactic Acid Calcium Magnesium AST Alkaline Phosphatase Total Creatine Kinase 311 H CK-MB (CK-2) 10.4 H Troponin T 0.283 H* D C-Reactive Protein Total Protein Albumin Cholesterol LDL Cholesterol Direct HDL Cholesterol Free T4 Urine WBC (Auto) > 182.0 H Urine Creatinine Urine Total Protein Crossmatch 08/13/18 08/13/18 08/13/18 06:35 10:10 10:10 WBC RBC Hgb Hct MCHC RDW Lymph % (Auto) [place] % (Auto) Lymph # [place] # Seg Neutrophils % Lymphocytes % (Manual) Seg Neutrophils # Lymphocytes # (Manual) PT INR APTT D-Dimer Heparin Anti-Xa Level POC ABG pH 7.554 H POC ABG pCO2 33.5 L POC ABG pO2 220 H Sodium 158 H Potassium Chloride 117.1 H Carbon Dioxide BUN 53 H Creatinine 2.0 H Glucose 247 H POC Glucose Lactic Acid Calcium 8.2 L Magnesium AST Alkaline Phosphatase Total Creatine Kinase 309 H CK-MB (CK-2) 4.1 H Troponin T 0.470 H* D C-Reactive Protein Total Protein Albumin Cholesterol LDL Cholesterol Direct HDL Cholesterol Free T4 Urine WBC (Auto) Urine Creatinine Urine Total Protein Crossmatch 08/13/18 08/13/18 08/13/18 12:53 12:53 17:55 WBC RBC Hgb Hct MCHC RDW Lymph % (Auto) [place] % (Auto) Lymph # [place] # Seg Neutrophils % Lymphocytes % (Manual) Seg Neutrophils # Lymphocytes # (Manual) PT INR APTT D-Dimer Heparin Anti-Xa Level POC ABG pH POC ABG pCO2 POC ABG pO2 Sodium Potassium Chloride Carbon Dioxide BUN Creatinine Glucose POC Glucose 308 H Lactic Acid 2.80 H* Calcium Magnesium 2.50 H AST Alkaline Phosphatase Total Creatine Kinase CK-MB (CK-2) Troponin T C-Reactive Protein 16.90 H Total Protein Albumin Cholesterol LDL Cholesterol Direct HDL Cholesterol Free T4 Urine WBC (Auto) Urine Creatinine Urine Total Protein Crossmatch 08/13/18 08/13/18 08/13/18 20:07 21:16 23:17 WBC RBC Hgb Hct MCHC RDW Lymph % (Auto) [place] % (Auto) Lymph # [place] # Seg Neutrophils % Lymphocytes % (Manual) Seg Neutrophils # Lymphocytes # (Manual) PT INR APTT D-Dimer 2742.50 H Heparin Anti-Xa Level POC ABG pH 7.483 H POC ABG pCO2 30.8 L POC ABG pO2 150 H Sodium Potassium Chloride Carbon Dioxide BUN Creatinine Glucose POC Glucose 245 H Lactic Acid Calcium Magnesium AST Alkaline Phosphatase Total Creatine Kinase CK-MB (CK-2) Troponin T C-Reactive Protein Total Protein Albumin Cholesterol LDL Cholesterol Direct HDL Cholesterol Free T4 Urine WBC (Auto) Urine Creatinine Urine Total Protein Crossmatch 08/14/18 08/14/18 08/14/18 04:03 04:03 04:56 WBC 18.2 H RBC 2.62 L Hgb 7.3 L Hct 24.5 L MCHC RDW 18.9 H Lymph % (Auto) [place] % (Auto) Lymph # [place] # 1.2 H Seg Neutrophils % 79.4 H Lymphocytes % (Manual) Seg Neutrophils # 14.5 H Lymphocytes # (Manual) PT INR APTT D-Dimer Heparin Anti-Xa Level POC ABG pH POC ABG pCO2 33.5 L POC ABG pO2 153 H Sodium 152 H Potassium 3.4 L Chloride 113.8 H Carbon Dioxide BUN 72 H Creatinine 2.7 H Glucose 239 H POC Glucose Lactic Acid Calcium 7.6 L Magnesium AST 50 H Alkaline Phosphatase 219 H Total Creatine Kinase CK-MB (CK-2) Troponin T 0.409 H* C-Reactive Protein Total Protein 6.2 L Albumin 1.9 L Cholesterol LDL Cholesterol Direct HDL Cholesterol Free T4 Urine WBC (Auto) Urine Creatinine Urine Total Protein Crossmatch 08/14/18 08/14/18 08/14/18 05:18 13:38 15:35 WBC RBC Hgb Hct MCHC RDW Lymph % (Auto) [place] % (Auto) Lymph # [place] # Seg Neutrophils % Lymphocytes % (Manual) Seg Neutrophils # Lymphocytes # (Manual) PT INR APTT D-Dimer Heparin Anti-Xa Level POC ABG pH POC ABG pCO2 POC ABG pO2 Sodium 150 H Potassium 3.2 L Chloride 114.5 H Carbon Dioxide BUN 69 H Creatinine 2.3 H Glucose 247 H POC Glucose 242 H 296 H Lactic Acid Calcium 7.2 L Magnesium AST Alkaline Phosphatase Total Creatine Kinase CK-MB (CK-2) Troponin T C-Reactive Protein Total Protein Albumin Cholesterol LDL Cholesterol Direct HDL Cholesterol Free T4 Urine WBC (Auto) Urine Creatinine Urine Total Protein Crossmatch 08/14/18 08/14/18 08/14/18 17:01 17:20 23:47 WBC RBC Hgb Hct MCHC RDW Lymph % (Auto) [place] % (Auto) Lymph # [place] # Seg Neutrophils % Lymphocytes % (Manual) Seg Neutrophils # Lymphocytes # (Manual) PT INR APTT D-Dimer Heparin Anti-Xa Level POC ABG pH POC ABG pCO2 POC ABG pO2 Sodium Potassium Chloride Carbon Dioxide BUN Creatinine Glucose POC Glucose 261 H 280 H Lactic Acid Calcium Magnesium AST Alkaline Phosphatase Total Creatine Kinase CK-MB (CK-2) Troponin T C-Reactive Protein Total Protein Albumin Cholesterol LDL Cholesterol Direct HDL Cholesterol Free T4 Urine WBC (Auto) Urine Creatinine 60.9 H Urine Total Protein 64 H Crossmatch 08/15/18 08/15/18 08/15/18 04:05 04:05 04:05 WBC RBC Hgb 6.3 L Hct 19.7 L* MCHC RDW Lymph % (Auto) [place] % (Auto) Lymph # [place] # Seg Neutrophils % Lymphocytes % (Manual) Seg Neutrophils # Lymphocytes # (Manual) PT INR APTT D-Dimer Heparin Anti-Xa Level 0.17 L POC ABG pH POC ABG pCO2 POC ABG pO2 Sodium 146 H Potassium 3.0 L Chloride 110.6 H Carbon Dioxide BUN 64 H Creatinine 2.2 H Glucose 231 H POC Glucose Lactic Acid Calcium 7.1 L Magnesium AST Alkaline Phosphatase Total Creatine Kinase CK-MB (CK-2) Troponin T C-Reactive Protein Total Protein Albumin Cholesterol LDL Cholesterol Direct HDL Cholesterol Free T4 Urine WBC (Auto) Urine Creatinine Urine Total Protein Crossmatch 08/15/18 08/15/18 08/15/18 05:21 05:26 06:35 WBC RBC Hgb Hct MCHC RDW Lymph % (Auto) [place] % (Auto) Lymph # [place] # Seg Neutrophils % Lymphocytes % (Manual) Seg Neutrophils # Lymphocytes # (Manual) PT INR APTT 79.0 H* D-Dimer Heparin Anti-Xa Level POC ABG pH 7.494 H POC ABG pCO2 POC ABG pO2 155 H Sodium Potassium Chloride Carbon Dioxide BUN Creatinine Glucose POC Glucose 271 H Lactic Acid Calcium Magnesium AST Alkaline Phosphatase Total Creatine Kinase CK-MB (CK-2) Troponin T C-Reactive Protein Total Protein Albumin Cholesterol LDL Cholesterol Direct HDL Cholesterol Free T4 Urine WBC (Auto) Urine Creatinine Urine Total Protein Crossmatch 08/15/18 08/15/18 08/15/18 12:10 15:31 17:27 WBC RBC Hgb Hct MCHC RDW Lymph % (Auto) [place] % (Auto) Lymph # [place] # Seg Neutrophils % Lymphocytes % (Manual) Seg Neutrophils # Lymphocytes # (Manual) PT INR APTT D-Dimer Heparin Anti-Xa Level POC ABG pH POC ABG pCO2 POC ABG pO2 Sodium Potassium Chloride Carbon Dioxide BUN Creatinine Glucose POC Glucose 301 H 287 H Lactic Acid Calcium Magnesium AST Alkaline Phosphatase Total Creatine Kinase CK-MB (CK-2) Troponin T C-Reactive Protein Total Protein Albumin Cholesterol LDL Cholesterol Direct HDL Cholesterol Free T4 Urine WBC (Auto) Urine Creatinine Urine Total Protein Crossmatch See Detail 08/15/18 08/15/18 08/16/18 21:41 23:45 04:13 WBC RBC Hgb Hct MCHC RDW Lymph % (Auto) [place] % (Auto) Lymph # [place] # Seg Neutrophils % Lymphocytes % (Manual) Seg Neutrophils # Lymphocytes # (Manual) PT INR APTT D-Dimer Heparin Anti-Xa Level 0.19 L POC ABG pH POC ABG pCO2 32.1 L POC ABG pO2 107 H Sodium Potassium Chloride Carbon Dioxide BUN Creatinine Glucose POC Glucose 163 H Lactic Acid Calcium Magnesium AST Alkaline Phosphatase Total Creatine Kinase CK-MB (CK-2) Troponin T C-Reactive Protein Total Protein Albumin Cholesterol LDL Cholesterol Direct HDL Cholesterol Free T4 Urine WBC (Auto) Urine Creatinine Urine Total Protein Crossmatch 08/16/18 08/16/18 08/16/18 04:50 05:28 11:30 WBC RBC 2.67 L Hgb 8.1 L Hct 23.4 L MCHC 35 H RDW 18.3 H Lymph % (Auto) [place] % (Auto) Lymph # [place] # Seg Neutrophils % Lymphocytes % (Manual) Seg Neutrophils # Lymphocytes # (Manual) PT INR APTT D-Dimer Heparin Anti-Xa Level 0.19 L POC ABG pH POC ABG pCO2 POC ABG pO2 Sodium Potassium Chloride Carbon Dioxide BUN Creatinine Glucose POC Glucose 141 H Lactic Acid Calcium Magnesium AST Alkaline Phosphatase Total Creatine Kinase CK-MB (CK-2) Troponin T C-Reactive Protein Total Protein Albumin Cholesterol LDL Cholesterol Direct HDL Cholesterol Free T4 Urine WBC (Auto) Urine Creatinine Urine Total Protein Crossmatch 08/16/18 08/16/18 08/16/18 11:30 12:00 12:01 WBC RBC Hgb Hct MCHC RDW Lymph % (Auto) [place] % (Auto) Lymph # [place] # Seg Neutrophils % Lymphocytes % (Manual) Seg Neutrophils # Lymphocytes # (Manual) PT INR APTT D-Dimer Heparin Anti-Xa Level 0.15 L POC ABG pH POC ABG pCO2 POC ABG pO2 Sodium Potassium Chloride 107.8 H Carbon Dioxide 21 L BUN 47 H Creatinine 1.6 H Glucose 221 H POC Glucose 267 H Lactic Acid Calcium 6.9 L Magnesium AST Alkaline Phosphatase Total Creatine Kinase CK-MB (CK-2) Troponin T C-Reactive Protein Total Protein Albumin Cholesterol LDL Cholesterol Direct HDL Cholesterol Free T4 Urine WBC (Auto) Urine Creatinine Urine Total Protein Crossmatch 08/16/18 08/16/18 08/16/18 17:23 20:01 23:13 WBC RBC Hgb Hct MCHC RDW Lymph % (Auto) [place] % (Auto) Lymph # [place] # Seg Neutrophils % Lymphocytes % (Manual) Seg Neutrophils # Lymphocytes # (Manual) PT INR APTT D-Dimer Heparin Anti-Xa Level 0.26 L POC ABG pH POC ABG pCO2 POC ABG pO2 Sodium Potassium Chloride Carbon Dioxide BUN Creatinine Glucose POC Glucose 245 H 256 H Lactic Acid Calcium Magnesium AST Alkaline Phosphatase Total Creatine Kinase CK-MB (CK-2) Troponin T C-Reactive Protein Total Protein Albumin Cholesterol LDL Cholesterol Direct HDL Cholesterol Free T4 Urine WBC (Auto) Urine Creatinine Urine Total Protein Crossmatch 08/17/18 08/17/18 08/17/18 04:29 04:55 05:34 WBC RBC Hgb 8.2 L Hct 24.3 L MCHC RDW Lymph % (Auto) [place] % (Auto) Lymph # [place] # Seg Neutrophils % Lymphocytes % (Manual) Seg Neutrophils # Lymphocytes # (Manual) PT INR APTT D-Dimer Heparin Anti-Xa Level POC ABG pH POC ABG pCO2 32.4 L POC ABG pO2 108 H Sodium Potassium Chloride Carbon Dioxide BUN Creatinine Glucose POC Glucose 268 H Lactic Acid Calcium Magnesium AST Alkaline Phosphatase Total Creatine Kinase CK-MB (CK-2) Troponin T C-Reactive Protein Total Protein Albumin Cholesterol LDL Cholesterol Direct HDL Cholesterol Free T4 Urine WBC (Auto) Urine Creatinine Urine Total Protein Crossmatch 08/17/18 08/17/18 08/17/18 11:54 13:44 17:24 WBC RBC Hgb Hct MCHC RDW Lymph % (Auto) [place] % (Auto) Lymph # [place] # Seg Neutrophils % Lymphocytes % (Manual) Seg Neutrophils # Lymphocytes # (Manual) PT INR APTT D-Dimer Heparin Anti-Xa Level POC ABG pH POC ABG pCO2 32.7 L POC ABG pO2 142 H Sodium Potassium Chloride Carbon Dioxide BUN Creatinine Glucose POC Glucose 295 H 283 H Lactic Acid Calcium Magnesium AST Alkaline Phosphatase Total Creatine Kinase CK-MB (CK-2) Troponin T C-Reactive Protein Total Protein Albumin Cholesterol LDL Cholesterol Direct HDL Cholesterol Free T4 Urine WBC (Auto) Urine Creatinine Urine Total Protein Crossmatch 08/18/18 08/18/18 08/18/18 00:05 00:59 04:15 WBC RBC Hgb Hct MCHC RDW Lymph % (Auto) [place] % (Auto) Lymph # [place] # Seg Neutrophils % Lymphocytes % (Manual) Seg Neutrophils # Lymphocytes # (Manual) PT INR APTT D-Dimer Heparin Anti-Xa Level POC ABG pH POC ABG pCO2 POC ABG pO2 115 H Sodium Potassium Chloride Carbon Dioxide BUN Creatinine Glucose POC Glucose 247 H 251 H Lactic Acid Calcium Magnesium AST Alkaline Phosphatase Total Creatine Kinase CK-MB (CK-2) Troponin T C-Reactive Protein Total Protein Albumin Cholesterol LDL Cholesterol Direct HDL Cholesterol Free T4 Urine WBC (Auto) Urine Creatinine Urine Total Protein Crossmatch 08/18/18 08/18/18 08/18/18 05:02 12:20 17:51 WBC RBC Hgb Hct MCHC RDW Lymph % (Auto) [place] % (Auto) Lymph # [place] # Seg Neutrophils % Lymphocytes % (Manual) Seg Neutrophils # Lymphocytes # (Manual) PT INR APTT D-Dimer Heparin Anti-Xa Level POC ABG pH POC ABG pCO2 POC ABG pO2 Sodium Potassium Chloride Carbon Dioxide BUN Creatinine Glucose POC Glucose 282 H 209 H 261 H Lactic Acid Calcium Magnesium AST Alkaline Phosphatase Total Creatine Kinase CK-MB (CK-2) Troponin T C-Reactive Protein Total Protein Albumin Cholesterol LDL Cholesterol Direct HDL Cholesterol Free T4 Urine WBC (Auto) Urine Creatinine Urine Total Protein Crossmatch 08/18/18 08/19/18 08/19/18 23:30 04:54 05:16 WBC RBC 2.62 L Hgb 7.5 L Hct 23.1 L MCHC RDW 18.1 H Lymph % (Auto) [place] % (Auto) Lymph # [place] # Seg Neutrophils % Lymphocytes % (Manual) Seg Neutrophils # Lymphocytes # (Manual) PT INR APTT D-Dimer Heparin Anti-Xa Level POC ABG pH POC ABG pCO2 POC ABG pO2 58 L Sodium Potassium Chloride Carbon Dioxide BUN Creatinine Glucose POC Glucose 231 H Lactic Acid Calcium Magnesium AST Alkaline Phosphatase Total Creatine Kinase CK-MB (CK-2) Troponin T C-Reactive Protein Total Protein Albumin Cholesterol LDL Cholesterol Direct HDL Cholesterol Free T4 Urine WBC (Auto) Urine Creatinine Urine Total Protein Crossmatch 08/19/18 08/19/18 08/19/18 05:16 05:40 11:56 WBC RBC Hgb Hct MCHC RDW Lymph % (Auto) [place] % (Auto) Lymph # [place] # Seg Neutrophils % Lymphocytes % (Manual) Seg Neutrophils # Lymphocytes # (Manual) PT INR APTT D-Dimer Heparin Anti-Xa Level POC ABG pH POC ABG pCO2 POC ABG pO2 Sodium 152 H D Potassium Chloride 118.7 H Carbon Dioxide BUN 38 H Creatinine Glucose 220 H POC Glucose 227 H 213 H Lactic Acid Calcium 8.1 L D Magnesium AST Alkaline Phosphatase Total Creatine Kinase CK-MB (CK-2) Troponin T C-Reactive Protein Total Protein Albumin Cholesterol LDL Cholesterol Direct HDL Cholesterol Free T4 Urine WBC (Auto) Urine Creatinine Urine Total Protein Crossmatch 08/19/18 08/19/18 08/20/18 18:37 23:32 04:38 WBC RBC Hgb Hct MCHC RDW Lymph % (Auto) [place] % (Auto) Lymph # [place] # Seg Neutrophils % Lymphocytes % (Manual) Seg Neutrophils # Lymphocytes # (Manual) PT INR APTT D-Dimer Heparin Anti-Xa Level POC ABG pH POC ABG pCO2 POC ABG pO2 140 H Sodium Potassium Chloride Carbon Dioxide BUN Creatinine Glucose POC Glucose 227 H 245 H Lactic Acid Calcium Magnesium AST Alkaline Phosphatase Total Creatine Kinase CK-MB (CK-2) Troponin T C-Reactive Protein Total Protein Albumin Cholesterol LDL Cholesterol Direct HDL Cholesterol Free T4 Urine WBC (Auto) Urine Creatinine Urine Total Protein Crossmatch 08/20/18 08/20/18 08/20/18 05:31 05:37 05:37 WBC RBC 2.60 L Hgb 7.5 L Hct 22.9 L MCHC RDW 18.4 H Lymph % (Auto) [place] % (Auto) Lymph # [place] # Seg Neutrophils % Lymphocytes % (Manual) Seg Neutrophils # Lymphocytes # (Manual) PT INR APTT D-Dimer Heparin Anti-Xa Level POC ABG pH POC ABG pCO2 POC ABG pO2 Sodium 150 H Potassium Chloride 115.6 H Carbon Dioxide BUN 38 H Creatinine Glucose 276 H POC Glucose 266 H Lactic Acid Calcium 7.9 L Magnesium AST Alkaline Phosphatase Total Creatine Kinase CK-MB (CK-2) Troponin T C-Reactive Protein Total Protein Albumin Cholesterol LDL Cholesterol Direct HDL Cholesterol Free T4 Urine WBC (Auto) Urine Creatinine Urine Total Protein Crossmatch 08/20/18 08/20/1819 14:01 18:20 23:11 WBC RBC Hgb Hct MCHC RDW Lymph % (Auto) [place] % (Auto) Lymph # [place] # Seg Neutrophils % Lymphocytes % (Manual) Seg Neutrophils # Lymphocytes # (Manual) PT INR APTT D-Dimer Heparin Anti-Xa Level POC ABG pH POC ABG pCO2 POC ABG pO2 Sodium Potassium Chloride Carbon Dioxide BUN Creatinine Glucose POC Glucose 305 H 271 H 218 H Lactic Acid Calcium Magnesium AST Alkaline Phosphatase Total Creatine Kinase CK-MB (CK-2) Troponin T C-Reactive Protein Total Protein Albumin Cholesterol LDL Cholesterol Direct HDL Cholesterol Free T4 Urine WBC (Auto) Urine Creatinine Urine Total Protein Crossmatch 08/21/18 08/21/18 08/21/18 04:41 04:41 06:20 WBC RBC 2.65 L Hgb 7.6 L Hct 23.3 L MCHC RDW 19.1 H Lymph % (Auto) [place] % (Auto) Lymph # [place] # Seg Neutrophils % Lymphocytes % (Manual) Seg Neutrophils # Lymphocytes # (Manual) PT INR APTT D-Dimer Heparin Anti-Xa Level POC ABG pH POC ABG pCO2 POC ABG pO2 Sodium 150 H Potassium Chloride 117.8 H Carbon Dioxide BUN 37 H Creatinine Glucose 233 H POC Glucose 262 H Lactic Acid Calcium 7.9 L Magnesium AST Alkaline Phosphatase Total Creatine Kinase CK-MB (CK-2) Troponin T C-Reactive Protein Total Protein Albumin Cholesterol LDL Cholesterol Direct HDL Cholesterol Free T4 Urine WBC (Auto) Urine Creatinine Urine Total Protein Crossmatch 08/21/18 08/21/18 08/21/18 10:18 12:04 12:36 WBC RBC Hgb Hct MCHC RDW Lymph % (Auto) [place] % (Auto) Lymph # [place] # Seg Neutrophils % Lymphocytes % (Manual) Seg Neutrophils # Lymphocytes # (Manual) PT INR APTT D-Dimer Heparin Anti-Xa Level POC ABG pH POC ABG pCO2 POC ABG pO2 Sodium Potassium Chloride Carbon Dioxide BUN Creatinine Glucose POC Glucose 256 H 245 H 255 H Lactic Acid Calcium Magnesium AST Alkaline Phosphatase Total Creatine Kinase CK-MB (CK-2) Troponin T C-Reactive Protein Total Protein Albumin Cholesterol LDL Cholesterol Direct HDL Cholesterol Free T4 Urine WBC (Auto) Urine Creatinine Urine Total Protein Crossmatch 08/21/18 08/21/18 08/22/18 17:36 23:29 05:01 WBC RBC Hgb Hct MCHC RDW Lymph % (Auto) [place] % (Auto) Lymph # [place] # Seg Neutrophils % Lymphocytes % (Manual) Seg Neutrophils # Lymphocytes # (Manual) PT INR APTT D-Dimer Heparin Anti-Xa Level POC ABG pH 7.466 H POC ABG pCO2 33.8 L POC ABG pO2 111 H Sodium Potassium Chloride Carbon Dioxide BUN Creatinine Glucose POC Glucose 263 H 268 H Lactic Acid Calcium Magnesium AST Alkaline Phosphatase Total Creatine Kinase CK-MB (CK-2) Troponin T C-Reactive Protein Total Protein Albumin Cholesterol LDL Cholesterol Direct HDL Cholesterol Free T4 Urine WBC (Auto) Urine Creatinine Urine Total Protein Crossmatch 08/22/18 08/22/18 08/22/18 05:05 12:05 12:15 WBC RBC Hgb Hct MCHC RDW Lymph % (Auto) [place] % (Auto) Lymph # [place] # Seg Neutrophils % Lymphocytes % (Manual) Seg Neutrophils # Lymphocytes # (Manual) PT INR APTT D-Dimer Heparin Anti-Xa Level POC ABG pH POC ABG pCO2 POC ABG pO2 Sodium 147 H Potassium Chloride 113.2 H Carbon Dioxide BUN 36 H Creatinine Glucose 249 H POC Glucose 256 H 228 H Lactic Acid Calcium 8.2 L Magnesium AST Alkaline Phosphatase Total Creatine Kinase CK-MB (CK-2) Troponin T C-Reactive Protein Total Protein Albumin Cholesterol LDL Cholesterol Direct HDL Cholesterol Free T4 Urine WBC (Auto) Urine Creatinine Urine Total Protein Crossmatch 08/22/18 08/23/18 08/23/18 17:30 00:03 05:05 WBC RBC Hgb Hct MCHC RDW Lymph % (Auto) [place] % (Auto) Lymph # [place] # Seg Neutrophils % Lymphocytes % (Manual) Seg Neutrophils # Lymphocytes # (Manual) PT INR APTT D-Dimer Heparin Anti-Xa Level POC ABG pH POC ABG pCO2 POC ABG pO2 Sodium Potassium Chloride Carbon Dioxide BUN Creatinine Glucose POC Glucose 291 H 259 H 247 H Lactic Acid Calcium Magnesium AST Alkaline Phosphatase Total Creatine Kinase CK-MB (CK-2) Troponin T C-Reactive Protein Total Protein Albumin Cholesterol LDL Cholesterol Direct HDL Cholesterol Free T4 Urine WBC (Auto) Urine Creatinine Urine Total Protein Crossmatch 08/23/18 08/23/18 08/23/18 05:14 12:29 17:21 WBC RBC Hgb Hct MCHC RDW Lymph % (Auto) [place] % (Auto) Lymph # [place] # Seg Neutrophils % Lymphocytes % (Manual) Seg Neutrophils # Lymphocytes # (Manual) PT INR APTT D-Dimer Heparin Anti-Xa Level POC ABG pH POC ABG pCO2 POC ABG pO2 Sodium Potassium Chloride Carbon Dioxide BUN Creatinine Glucose POC Glucose 208 H 138 H 175 H Lactic Acid Calcium Magnesium AST Alkaline Phosphatase Total Creatine Kinase CK-MB (CK-2) Troponin T C-Reactive Protein Total Protein Albumin Cholesterol LDL Cholesterol Direct HDL Cholesterol Free T4 Urine WBC (Auto) Urine Creatinine Urine Total Protein Crossmatch 08/23/18 08/24/18 08/24/18 23:36 01:00 05:50 WBC RBC 2.92 L 2.90 L Hgb 8.3 L 8.2 L Hct 25.4 L 25.2 L MCHC RDW 18.9 H 18.6 H Lymph % (Auto) [place] % (Auto) 9.2 H Lymph # [place] # Seg Neutrophils % Lymphocytes % (Manual) Seg Neutrophils # Lymphocytes # (Manual) PT INR APTT D-Dimer Heparin Anti-Xa Level POC ABG pH POC ABG pCO2 POC ABG pO2 Sodium Potassium Chloride Carbon Dioxide BUN Creatinine Glucose POC Glucose 163 H Lactic Acid Calcium Magnesium AST Alkaline Phosphatase Total Creatine Kinase CK-MB (CK-2) Troponin T C-Reactive Protein Total Protein Albumin Cholesterol LDL Cholesterol Direct HDL Cholesterol Free T4 Urine WBC (Auto) Urine Creatinine Urine Total Protein Crossmatch 08/24/18 08/24/18 08/24/18 05:50 12:26 18:37 WBC RBC Hgb Hct MCHC RDW Lymph % (Auto) [place] % (Auto) Lymph # [place] # Seg Neutrophils % Lymphocytes % (Manual) Seg Neutrophils # Lymphocytes # (Manual) PT INR APTT D-Dimer Heparin Anti-Xa Level POC ABG pH POC ABG pCO2 POC ABG pO2 Sodium 147 H Potassium Chloride 113.6 H Carbon Dioxide BUN 33 H Creatinine Glucose 210 H POC Glucose 223 H 166 H Lactic Acid Calcium 8.3 L Magnesium AST Alkaline Phosphatase Total Creatine Kinase CK-MB (CK-2) Troponin T C-Reactive Protein Total Protein Albumin Cholesterol LDL Cholesterol Direct HDL Cholesterol Free T4 Urine WBC (Auto) Urine Creatinine Urine Total Protein Crossmatch 08/24/18 08/25/18 08/25/18 23:47 04:55 04:55 WBC RBC 2.94 L Hgb 8.4 L Hct 25.1 L MCHC RDW 18.2 H Lymph % (Auto) [place] % (Auto) Lymph # [place] # Seg Neutrophils % Lymphocytes % (Manual) Seg Neutrophils # Lymphocytes # (Manual) PT INR APTT D-Dimer Heparin Anti-Xa Level POC ABG pH POC ABG pCO2 POC ABG pO2 Sodium Potassium Chloride 110.2 H Carbon Dioxide BUN 30 H Creatinine Glucose POC Glucose 126 H Lactic Acid Calcium 8.1 L Magnesium AST Alkaline Phosphatase Total Creatine Kinase CK-MB (CK-2) Troponin T C-Reactive Protein Total Protein Albumin Cholesterol LDL Cholesterol Direct HDL Cholesterol Free T4 Urine WBC (Auto) Urine Creatinine Urine Total Protein Crossmatch 08/25/18 08/26/18 08/26/18 12:40 04:39 04:39 WBC RBC 2.96 L Hgb 8.3 L Hct 25.7 L MCHC RDW 18.2 H Lymph % (Auto) 10.5 L [place] % (Auto) 9.3 H Lymph # 0.8 L [place] # Seg Neutrophils % 77.0 H Lymphocytes % (Manual) Seg Neutrophils # Lymphocytes # (Manual) PT INR APTT D-Dimer Heparin Anti-Xa Level POC ABG pH POC ABG pCO2 POC ABG pO2 Sodium 147 H Potassium Chloride 113.5 H Carbon Dioxide BUN 27 H Creatinine 0.7 L Glucose 106 H POC Glucose Lactic Acid Calcium 8.0 L Magnesium AST Alkaline Phosphatase Total Creatine Kinase CK-MB (CK-2) Troponin T C-Reactive Protein Total Protein Albumin Cholesterol LDL Cholesterol Direct HDL Cholesterol Free T4 Urine WBC (Auto) > 182.0 H Urine Creatinine Urine Total Protein Crossmatch 08/26/18 08/26/18 08/26/18 05:27 09:00 09:54 WBC RBC Hgb Hct MCHC RDW Lymph % (Auto) [place] % (Auto) Lymph # [place] # Seg Neutrophils % Lymphocytes % (Manual) Seg Neutrophils # Lymphocytes # (Manual) PT INR APTT D-Dimer Heparin Anti-Xa Level POC ABG pH POC ABG pCO2 POC ABG pO2 Sodium Potassium Chloride Carbon Dioxide BUN Creatinine Glucose POC Glucose 120 H 170 H Lactic Acid Calcium Magnesium AST Alkaline Phosphatase Total Creatine Kinase CK-MB (CK-2) Troponin T C-Reactive Protein Total Protein Albumin Cholesterol LDL Cholesterol Direct HDL Cholesterol Free T4 0.51 L Urine WBC (Auto) Urine Creatinine Urine Total Protein Crossmatch 08/26/18 08/26/18 08/27/18 14:52 17:50 06:30 WBC RBC Hgb Hct MCHC RDW Lymph % (Auto) [place] % (Auto) Lymph # [place] # Seg Neutrophils % Lymphocytes % (Manual) Seg Neutrophils # Lymphocytes # (Manual) PT INR APTT D-Dimer Heparin Anti-Xa Level POC ABG pH POC ABG pCO2 POC ABG pO2 Sodium 150 H Potassium Chloride 114.8 H Carbon Dioxide BUN 24 H Creatinine 0.7 L Glucose 131 H POC Glucose 166 H 107 H Lactic Acid Calcium 7.8 L Magnesium AST Alkaline Phosphatase Total Creatine Kinase CK-MB (CK-2) Troponin T C-Reactive Protein Total Protein Albumin Cholesterol LDL Cholesterol Direct HDL Cholesterol Free T4 Urine WBC (Auto) Urine Creatinine Urine Total Protein Crossmatch 08/27/18 08/27/18 08/27/18 08:22 14:20 16:06 WBC RBC Hgb Hct MCHC RDW Lymph % (Auto) [place] % (Auto) Lymph # [place] # Seg Neutrophils % Lymphocytes % (Manual) Seg Neutrophils # Lymphocytes # (Manual) PT INR APTT D-Dimer Heparin Anti-Xa Level POC ABG pH POC ABG pCO2 POC ABG pO2 Sodium Potassium Chloride Carbon Dioxide BUN Creatinine Glucose POC Glucose 112 H 151 H 158 H Lactic Acid Calcium Magnesium AST Alkaline Phosphatase Total Creatine Kinase CK-MB (CK-2) Troponin T C-Reactive Protein Total Protein Albumin Cholesterol LDL Cholesterol Direct HDL Cholesterol Free T4 Urine WBC (Auto) Urine Creatinine Urine Total Protein Crossmatch 08/27/18 08/27/18 08/28/18 20:09 21:25 02:03 WBC RBC Hgb Hct MCHC RDW Lymph % (Auto) [place] % (Auto) Lymph # [place] # Seg Neutrophils % Lymphocytes % (Manual) Seg Neutrophils # Lymphocytes # (Manual) PT INR APTT D-Dimer Heparin Anti-Xa Level POC ABG pH POC ABG pCO2 POC ABG pO2 130 H Sodium Potassium Chloride Carbon Dioxide BUN Creatinine Glucose POC Glucose 226 H 250 H Lactic Acid Calcium Magnesium AST Alkaline Phosphatase Total Creatine Kinase CK-MB (CK-2) Troponin T C-Reactive Protein Total Protein Albumin Cholesterol LDL Cholesterol Direct HDL Cholesterol Free T4 Urine WBC (Auto) Urine Creatinine Urine Total Protein Crossmatch 08/28/18 08/28/18 08/28/18 05:56 07:15 13:17 WBC RBC Hgb Hct MCHC RDW Lymph % (Auto) [place] % (Auto) Lymph # [place] # Seg Neutrophils % Lymphocytes % (Manual) Seg Neutrophils # Lymphocytes # (Manual) PT INR APTT D-Dimer Heparin Anti-Xa Level POC ABG pH POC ABG pCO2 POC ABG pO2 Sodium Potassium Chloride Carbon Dioxide BUN Creatinine Glucose 198 H POC Glucose 221 H 188 H Lactic Acid Calcium 7.7 L Magnesium AST Alkaline Phosphatase Total Creatine Kinase CK-MB (CK-2) Troponin T C-Reactive Protein Total Protein Albumin Cholesterol LDL Cholesterol Direct HDL Cholesterol Free T4 Urine WBC (Auto) Urine Creatinine Urine Total Protein Crossmatch 08/28/18 08/28/18 08/28/18 15:53 18:12 22:35 WBC RBC Hgb Hct MCHC RDW Lymph % (Auto) [place] % (Auto) Lymph # [place] # Seg Neutrophils % Lymphocytes % (Manual) Seg Neutrophils # Lymphocytes # (Manual) PT INR APTT D-Dimer Heparin Anti-Xa Level POC ABG pH 7.457 H POC ABG pCO2 POC ABG pO2 Sodium Potassium Chloride Carbon Dioxide BUN Creatinine Glucose POC Glucose 197 H 225 H Lactic Acid Calcium Magnesium AST Alkaline Phosphatase Total Creatine Kinase CK-MB (CK-2) Troponin T C-Reactive Protein Total Protein Albumin Cholesterol LDL Cholesterol Direct HDL Cholesterol Free T4 Urine WBC (Auto) Urine Creatinine Urine Total Protein Crossmatch 08/29/18 03:04 WBC RBC Hgb Hct MCHC RDW Lymph % (Auto) [place] % (Auto) Lymph # [place] # Seg Neutrophils % Lymphocytes % (Manual) Seg Neutrophils # Lymphocytes # (Manual) PT INR APTT D-Dimer Heparin Anti-Xa Level POC ABG pH POC ABG pCO2 POC ABG pO2 Sodium Potassium Chloride Carbon Dioxide BUN Creatinine Glucose POC Glucose 223 H Lactic Acid Calcium Magnesium AST Alkaline Phosphatase Total Creatine Kinase CK-MB (CK-2) Troponin T C-Reactive Protein Total Protein Albumin Cholesterol LDL Cholesterol Direct HDL Cholesterol Free T4 Urine WBC (Auto) Urine Creatinine Urine Total Protein Crossmatch Chest x-ray: pending Allied health notes reviewed: nursing
[2018-08-29] MEDS: LOVENOX SUB-Q SCH (21:40)
[2018-08-30] MEDS: HumaLOG SUB-Q SCH ×6 (02:00→22:27)
[2018-08-30] MEDS: APRESOLINE PO SCH ×3 (05:45→22:26)
[2018-08-30 06:00] LABS: Basophils # (Auto) 0.1 K/mm3 (0.0-0.1); Basophils % (Auto) 0.8 % (0.0-1.8); Eosinophils # (Auto) 0.6 K/mm3 (0.0-0.4); Eosinophils % (Auto) 8.8 % (0.0-4.3); Hematocrit 25.9 % (35.5-45.6); Hemoglobin 8.5 gm/dl (11.8-15.2); Lymphocytes # (Auto) 1.5 K/mm3 (1.2-5.4); Lymphocytes % (Auto) 22.4 % (13.4-35.0); Mean Corpuscular HGB Conc 33 % (32-34); Mean Corpuscular Volume 83 fl (84-94); Monocytes # (Auto) 0.5 K/mm3 (0.0-0.8); Monocytes % (Auto) 7.8 % (0.0-7.3); Platelet Count 282 K/mm3 (140-440); Red Blood Count 3.12 M/mm3 (3.65-5.03); Red Cell Distribution Width 18.3 % (13.2-15.2)
[2018-08-30 06:48] LABS: Alanine Aminotransferase 31 units/L (7-56); Albumin 1.6 g/dL (3.9-5); BUN/Creatinine Ratio 27; Blood Urea Nitrogen 19 mg/dL (9-20); Calcium 8.2 mg/dL (8.4-10.2); Hemolysis Index 0
[2018-08-30] MEDS: KEPPRA PO SCH ×2 (10:45→22:26)
[2018-08-30] MEDS: ASPIRIN PO SCH (10:46)
[2018-08-30] MEDS: PEPCID PO SCH ×2 (10:47→22:27)
[2018-08-30] MEDS: SODIUM CHLORIDE FLUSH SYRINGE 10 ML IV SCH (10:51)
[2018-08-30] MEDS: PROVIGIL PO SCH (10:51)
--- NOTE | 2018-08-30 11:03 | Progress Note ---
Assessment and Plan Assessment and plan: Cardiopulmonary arrest x 3: Most likely related to mucus plugging >NSTEMI, lead ing to severe irreversible brain damage: supportive care, CCM following. Acute on chronic respiratory failure Trach has been removed when patient was orally intubated, continue ventilator management per pulmonology. Tracheostomy was replaced by surgery on 08/25/18. Tracheostomy care, airway clearance, secretion management Right pneumothorax, resolved. Status post chest tube, mgt per pulmonology Hypoxic encephalopathy: neurology consult appreciated, poor prognosis, poor likelihood of recovery, preserved brain stem function otherwise unresponsive. EEG is suggestive hypoxic encephalopathy. Hypertension. Increase hydralazine 75 mg 3 times a day Hypernatremia, Continue free water via G-tube, sp hypotonic IV solution, monitor bmp closely Acute kidney injury likely due to ATN Nephrology following, continue IV fluid, avoid renal toxic agents NSTEMI: treated with IV heparin, asa, statin, no bblocker due to bradycardia, hypotension, Cardiology is following Severe protein calorie malnutrition: Dietitian consulted, continue tube feedings UTI/sepsis: Continue antibiotics, follow-up urine cultures-->no growth x 48 hours Type 2 dm with persistent hyperglycemia: cont insulins and adjust according, on tube feedings Anemia: s/p transfusion Urinary retention: continue douglass, condom cath DVT prophylaxis; patient is fully anticoagulated on heparin drip Disposition. LTAC referral. The high probability of a clinically significant, sudden or life threatening deterioration of the [neurology and respiratory] system(s) required my full and direct attention, intervention and personal management. The aggregate critical care time was [31] minutes. This time is in addition to time spent performing reported procedures but includes the following: [x] Data Review and interpretation [x] Patient assessment and monitoring of vital signs [x] Documentation [x] Medication orders and management History Interval history: Patient is a 77 yo man from [facility] with a history of respiratory failure, CVA with tracheostomy and Gtube who presented to [facility] ED following cardiac arrest [facility]. Time down is unknown per records. The patient is on the vent and unresponsive, all history is obtained from the chart. Patient had multiple episodes of arrest/pulselessness. He has been on the vent since then without any improvement. Per ER notes the patient was bagged via tracheostomy which continued to have low tidal volumes and so the patient with orally intubated after which tidal volumes improved. I spoke with and daughter, Felicita and they believe that he aspirated with a mucus plug that caused the cardiopulmonary arrest not NSTEMI.. Initially, he went to [facility] may 05 to june 05, he had fluid on brain and multiple strokes per family and they drained the fluid off the brain. The trach was placed at [facility] and patient went to [facility], x 7 weeks (trach was changed where capped was placed), he was doing well, talking and sitting up. Then he went to [facility], August 03 and his oral care was horrible. The trach care was horrible and not enough suctioning done. Mouth with copious amount of crud. Then on August 12, Friday, he had voice changing and mucus plugging. Followed by respiratory arrest. The NM brain flow scan showed reduced blood flow. Patient had evaluation by neurology who reports patient with intact brainstem function. Hospitalist Physical - Constitutional Vitals: Temp Pulse Resp BP Pulse Ox 98.9 F 70 16 122/71 100 08/30/18 08:00 08/30/18 09:40 08/30/18 09:40 08/30/18 09:40 08/30/18 09:40 General appearance: Present: other (twitching, nonresponsive, intubated) - EENT Eyes: Present: PERRL, EOM intact ENT: hearing intact, clear oral mucosa, dentition normal - Neck Neck: Present: supple, normal ROM - Respiratory Respiratory effort: normal Respiratory: bilateral: CTA - Cardiovascular Rhythm: regular Heart Sounds: Present: S1 & S2. Absent: gallop, rub - Extremities Extremities: no ischemia, No edema, Full ROM - Abdominal General gastrointestinal: soft, non-tender, non-distended, normal bowel sounds - Integumentary Integumentary: Present: clear, warm, dry - Neurologic Neurologic: other (unresponsive, does not follow commands) Results - Labs CBC & Chem 7: 08/30/18 05:40 08/30/18 05:40 Labs: Laboratory Last Values WBC 6.6 K/mm3 (4.5-11.0) 08/30/18 05:40 RBC 3.12 M/mm3 (3.65-5.03) L 08/30/18 05:40 Hgb 8.5 gm/dl (11.8-15.2) L 08/30/18 05:40 Hct 25.9 % (35.5-45.6) L 08/30/18 05:40 MCV 83 fl (84-94) L 08/30/18 05:40 MCH 27 pg (28-32) L 08/30/18 05:40 MCHC 33 % (32-34) 08/30/18 05:40 RDW 18.3 % (13.2-15.2) H 08/30/18 05:40 Plt Count 282 K/mm3 (140-440) 08/30/18 05:40 Lymph % (Auto) 22.4 % (13.4-35.0) 08/30/18 05:40 [place] % (Auto) 7.8 % (0.0-7.3) H 08/30/18 05:40 Eos % (Auto) 8.8 % (0.0-4.3) H 08/30/18 05:40 Baso % (Auto) 0.8 % (0.0-1.8) 08/30/18 05:40 Lymph # 1.5 K/mm3 (1.2-5.4) 08/30/18 05:40 [place] # 0.5 K/mm3 (0.0-0.8) 08/30/18 05:40 Eos # 0.6 K/mm3 (0.0-0.4) H 08/30/18 05:40 Baso # 0.1 K/mm3 (0.0-0.1) 08/30/18 05:40 Add Manual Diff Complete 08/12/18 21:44 Total Counted 100 08/12/18 21:44 Seg Neutrophils % 60.2 % (40.0-70.0) 08/30/18 05:40 Seg Neuts % (Manual) 44.0 % (40.0-70.0) 08/12/18 21:44 0 % 08/12/18 21:44 48.0 % (13.4-35.0) H 08/12/18 21:44 Reactive Lymphs % (Man) 0 % 08/12/18 21:44 2.0 % (0.0-7.3) 08/12/18 21:44 1.0 % (0.0-4.3) 08/12/18 21:44 0 % (0.0-1.8) 08/12/18 21:44 1.0 % 08/12/18 21:44 4.0 % 08/12/18 21:44 0 % 08/12/18 21:44 0 % 08/12/18 21:44 Nucleated RBC % Not Reportable 08/12/18 21:44 Seg Neutrophils # 4.0 K/mm3 (1.8-7.7) 08/30/18 05:40 Seg Neutrophils # Man 6.8 K/mm3 (1.8-7.7) 08/12/18 21:44 Band Neutrophils # 0.0 K/mm3 08/12/18 21:44 7.4 K/mm3 (1.2-5.4) H 08/12/18 21:44 Abs React Lymphs (Man) 0.0 K/mm3 08/12/18 21:44 0.3 K/mm3 (0.0-0.8) 08/12/18 21:44 0.2 K/mm3 (0.0-0.4) 08/12/18 21:44 0.0 K/mm3 (0.0-0.1) 08/12/18 21:44 0.2 K/mm3 08/12/18 21:44 0.6 K/mm3 08/12/18 21:44 0.0 K/mm3 08/12/18 21:44 Blast Cells # 0.0 K/mm3 08/12/18 21:44 WBC Morphology Not Reportable 08/12/18 21:44 Hypersegmented Neuts Not Reportable 08/12/18 21:44 Hyposegmented Neuts Not Reportable 08/12/18 21:44 Hypogranular Neuts Not Reportable 08/12/18 21:44 Not Reportable 08/12/18 21:44 Not Reportable 08/12/18 21:44 Not Reportable 08/12/18 21:44 Not Reportable 08/12/18 21:44 Not Reportable 08/12/18 21:44 Not Reportable 08/12/18 21:44 Consistent w auto 08/12/18 21:44 Not Reportable 08/12/18 21:44 Plt Clumps, EDTA Not Reportable 08/12/18 21:44 Not Reportable 08/12/18 21:44 Not Reportable 08/12/18 21:44 Not Reportable 08/12/18 21:44 Plt Morphology Comment Not Reportable 08/12/18 21:44 RBC Morphology Not Reportable 08/12/18 21:44 Dimorphic RBCs Not Reportable 08/12/18 21:44 Not Reportable 08/12/18 21:44 Not Reportable 08/12/18 21:44 Not Reportable 08/12/18 21:44 Few 08/12/18 21:44 Not Reportable 08/12/18 21:44 Not Reportable 08/12/18 21:44 Not Reportable 08/12/18 21:44 Not Reportable 08/12/18 21:44 Not Reportable 08/12/18 21:44 Not Reportable 08/12/18 21:44 Not Reportable 08/12/18 21:44 Few 08/12/18 21:44 Not Reportable 08/12/18 21:44 Not Reportable 08/12/18 21:44 Not Reportable 08/12/18 21:44 Not Reportable 08/12/18 21:44 Not Reportable 08/12/18 21:44 Not Reportable 08/12/18 21:44 Few 08/12/18 21:44 Acanthocytes (Spur) Not Reportable 08/12/18 21:44 Rouleaux Not Reportable 08/12/18 21:44 Not Reportable 08/12/18 21:44 Not Reportable 08/12/18 21:44 Not Reportable 08/12/18 21:44 Not Reportable 08/12/18 21:44 Hem Pathologist Commnt No 08/12/18 21:44 PT 16.5 Sec. (12.2-14.9) H 08/13/18 00:47 INR 1.25 (0.87-1.13) H 08/13/18 00:47 APTT 79.0 Sec. (24.2-36.6) H* 08/15/18 06:35 2742.50 ng/mlDDU (0-234) H 08/13/18 20:07 Heparin Anti-Xa Level 0.26 U.I./ml (0.3-0.7) L 08/16/18 20:01 POC ABG pH 7.444 (7.35-7.45) 08/29/18 16:45 POC ABG pCO2 41.7 (35-45) 08/29/18 16:45 POC ABG pO2 118 (80-105) H 08/29/18 16:45 POC ABG HCO3 28.6 (22-26 mml/L) 08/29/18 16:45 POC ABG Total CO2 30 (23-27mmol/L) 08/29/18 16:45 POC ABG O2 Sat 99 08/29/18 16:45 POC ABG Base Excess 4 ((-2) - (+3)mmol/L) 08/29/18 16:45 28 % 08/29/18 16:45 Sodium 140 mmol/L (137-145) 08/30/18 05:40 Potassium 4.0 mmol/L (3.6-5.0) 08/30/18 05:40 Chloride 105.5 mmol/L (98-107) 08/30/18 05:40 Carbon Dioxide 29 mmol/L (22-30) 08/30/18 05:40 10 mmol/L 08/30/18 05:40 BUN 19 mg/dL (9-20) 08/30/18 05:40 0.7 mg/dL (0.8-1.5) L 08/30/18 05:40 Estimated GFR > 60 ml/min 08/30/18 05:40 27 % 08/30/18 05:40 Glucose 189 mg/dL (75-100) H 08/30/18 05:40 POC Glucose 216 (70-105) H 08/30/18 09:28 Lactic Acid 2.80 mmol/L (0.7-2.0) H* 08/13/18 12:53 Calcium 8.2 mg/dL (8.4-10.2) L 08/30/18 05:40 Phosphorus 3.90 mg/dL (2.5-4.5) 08/15/18 04:05 Magnesium 2.20 mg/dL (1.7-2.3) 08/15/18 04:05 < 0.20 mg/dL (0.1-1.2) 08/30/18 05:40 AST 50 units/L (5-40) H 08/30/18 05:40 ALT 31 units/L (7-56) 08/30/18 05:40 158 units/L (35-129) H 08/30/18 05:40 309 units/L (55-170) H 08/13/18 10:10 CK-MB (CK-2) 4.1 ng/mL (0.0-4.0) H 08/13/18 10:10 CK-MB (CK-2) Rel Index 1.3 (0-4) 08/13/18 10:10 0.409 ng/mL (0.00-0.029) H* 08/14/18 04:03 16.90 mg/dL (0.00-1.30) H 08/13/18 12:53 6.4 g/dL (6.3-8.2) 08/30/18 05:40 1.6 g/dL (3.9-5) L 08/30/18 05:40 0.3 % 08/30/18 05:40 Triglycerides 62 mg/dL (2-149) 08/13/18 00:32 Cholesterol 46 mg/dL (50-199) L 08/13/18 00:32 17 mg/dL (50-130) L 08/13/18 00:32 6 mg/dL (40-59) L 08/13/18 00:32 7.66 % 08/13/18 00:32 TSH 0.973 mlU/mL (0.270-4.200) 08/26/18 09:00 Free T4 0.51 ng/dL (0.76-1.46) L 08/26/18 09:00 Yellow (Yellow) 08/25/18 12:40 Turbid (Clear) 08/25/18 12:40 7.0 (5.0-7.0) 08/25/18 12:40 Ur Specific [place] 1.009 (1.003-1.030) 08/25/18 12:40 100 mg/dl mg/dL (Negative) 08/25/18 12:40 Neg mg/dL (Negative) 08/25/18 12:40 Neg mg/dL (Negative) 08/25/18 12:40 Mod (Negative) 08/25/18 12:40 Neg (Negative) 08/25/18 12:40 Neg (Negative) 08/25/18 12:40 < 2.0 mg/dL (<2.0) 08/25/18 12:40 Ur Leukocyte Esterase Lg (Negative) 08/25/18 12:40 > 182.0 /HPF (0.0-6.0) H 08/25/18 12:40 10.0 /HPF (0.0-6.0) 08/25/18 12:40 U Epithel Cells (Auto) 5.0 /HPF (0-13.0) 08/25/18 12:40 2+ /HPF (Negative) 08/13/18 00:50 3+ /HPF 08/25/18 12:40 None seen (None Seen) 08/14/18 17:20 60.9 mg/dL (0.1-20.0) H 08/14/18 17:20 32 mmol/L 08/14/18 17:20 64 mg/dL (5-11.8) H 08/14/18 17:20 Presumptive negative 08/12/18 21:30 Presumptive negative 08/12/18 21:30 Ur Barbiturates Screen Presumptive negative 08/12/18 21:30 Ur Phencyclidine Scrn Presumptive negative 08/12/18 21:30 Ur Amphetamines Screen Presumptive negative 08/12/18 21:30 U Benzodiazepines Scrn Presumptive negative 08/12/18 21:30 Presumptive negative 08/12/18 21:30 U Marijuana (THC) Screen Presumptive negative 08/12/18 21:30 Disclamer 08/12/18 21:30 Blood Type O POSITIVE 08/15/18 15:31 Antibody Screen Negative 08/15/18 15:31 Crossmatch See Detail 08/15/18 15:31 Active Medications - Current Medications Current Medications: Generic Name Dose Route Start Last Admin Trade Name Freq PRN Reason Stop Dose Admin Acetaminophen 650 mg 08/13/18 11:40 08/13/18 16:09 Tylenol PO 650 mg Q6H PRN Administration Fever >101 Lipase/Protease/Amylase 1 each 08/25/18 18:[address] 10,500 Unit FEEDTUBE PRN PRN For Clogged Feeding Tube Aspirin 325 mg 08/17/18 10:00 08/30/18 10:46 Aspirin PO 325 mg QDAY LENCHO Administration Atorvastatin Calcium 40 mg 08/14/18 22:00 08/29/18 21:33 Lipitor PO 40 mg QHS LENCHO Administration Dextrose 50 ml 08/13/18 01:34 D50w (25gm) Syringe IV PRN PRN Hypoglycemia Enoxaparin Sodium 40 mg 08/17/18 22:00 08/29/18 21:40 Lovenox SUB-Q 40 mg QDAY@2200 LENCHO Administration Famotidine 20 mg 08/19/18 10:00 08/30/18 10:47 Pepcid PO 20 mg BID LENCHO Administration Hydralazine HCl 75 mg 08/29/18 14:00 08/30/18 05:45 Apresoline PO 75 mg Q8HR LENCHO Administration Hydrophilic Ointment 1 applic 08/13/18 12:21 Vaseline Lip Therapy TP Q2HR PRN Dry Lips Insulin Human Lispro 0 unit 08/26/18 10:00 08/30/18 05:46 Humalog SUB-Q 2 unit Q4HR LENCHO Administration Protocol Levetiracetam 500 mg 08/27/18 22:00 08/30/18 10:45 Keppra PO 500 mg BID LENCHO Administration Modafinil 100 mg 08/27/18 10:00 08/30/18 10:51 Provigil PO 100 mg QAM LENCHO Administration Multi-Ingred Cream/Lotion/Oil/Oint 1 applic 08/13/18 12:21 08/17/18 00:41 Artificial Tears Ophth Oint OU 1 applic Q4HR PRN Administration Dry Eye(s) Ondansetron HCl 4 mg 08/13/18 01:34 Zofran IV Q8H PRN Nausea And Vomiting Simple Syrup 15 ml 08/25/18 18:36 Simple Syrup FEEDTUBE PRN PRN Hypoglycemia Simple Syrup 30 ml 08/25/18 18:36 Simple Syrup FEEDTUBE PRN PRN Hypoglycemia Sodium Bicarbonate 325 mg 08/25/18 18:36 Sodium Bicarbonate FEEDTUBE PRN PRN For Clogged Feeding Tube Sodium Chloride 10 ml 08/13/18 10:00 08/30/18 10:51 Sodium Chloride Flush Syringe 10 Ml IV 10 ml BID LENCHO Administration Sodium Chloride 10 ml 08/13/18 01:34 Sodium Chloride Flush Syringe 10 Ml IV PRN PRN LINE FLUSH Nutrition/Malnutrition Assess - Dietary Evaluation Nutrition/Malnutrition Findings: Nutrition Notes Start: 08/13/18 15:41 Freq: Status: Active Protocol: Document 08/27/18 09:21 LP (Rec: 08/27/18 09:28 LP [id number]) Nutrition Notes Initial or Follow up Reassessment Current Diagnosis Acute Kidney Injury,Diabetes Other Pertinent Diagnosis UTI, Hx CVA, PEG, Sacral PU, Multiple PU, Anoxic brain injury,R pneumothorax Current Diet Vital 1.2 at 60 ml/hr Labs/Tests Reviewed Pertinent Medications Reviewed Height 5 ft 8 in Weight 78.6 kg [place] Body Weight (kg) 70.00 BMI 26.3 Subjective/Other Information Pt tolerating TF at 40ml/hr so far but had 270ml residual earlier. Percent of energy/protein needs met: 64%/84% Burn Absent Trauma Absent #1 Nutrition Diagnosis Inadequate oral intake Diagnosis Progress(for reassessment Continues documentation) Is patient on ventilator? Yes Is Patient Ambulatory and/or Out of Bed No REE-(Mouthcard-[facility]-confined to bed) [phone] Calculation Used for Recommendations [facility] Additional Notes Protein Needs: 87-145g (1.2-2g /kg) Fluid Needs: 1 ml/kcal Nutrition Intervention Change Diet Order: TF Nutrition Support: Vital 1.2 at 60 ml/hr. Water flush of 250ml q4h for hypernatremia and 100 mls q 4 hrs once resolved. Kcal 1,728 Protein (gm) 108 Fluid (mL) 1,167 Add Supplement/Snack (indicate name/kcal Magen BID /protein ) Provides kCal: 190 Provides Protein (gm) 5 Goal #1 Meet at least 80% of calorie and protein needs via TF Anticipated Discharge Needs: TF Follow-Up By: 08/31/18 Additional Comments Follow for TF tolerance at goal
--- NOTE | 2018-08-30 16:21 | Progress Note ---
Assessment and Plan Acute hypoxemic respiratory failure on chronic. Status post cardiac arrest. Seizure disorder with breakthrough seizures. History of diabetes. History of cerebrovascular accident. Oropharyngeal dysphagia. History of seizures. - repeat CXR in am - continue daily SBT's as tolerated (rest on AC mode qhs for now) - prn ABG's at this point - continue Keppra for seizures with prn ativan IV for breakthrough (now dosed at 500mg IV bid) - continue provigil - continue bronchodilators with routine trach care and pulmonary hygiene per RT - neurology evaluation ongoing (pupils reactive sluggishly) - sedation target for RASS 0 to -1 (daily SAT's as tolerated) - continue GI & VTE prophylaxis - continue to wean supplemental oxygen to keep O2 sats 88-90% - Lung protective strategies - VAP bundle addressed - Continue cardioprotective measures - Replete electrolytes as indicated - Continue to rest at night on full MVS - Monitor renal indices closely - Avoid nephrotoxic agents, adjust all medications for CrCL - Strict intake and output monitoring - continue enteral nutrition as tolerated - continue accuchecks with glycemic control per SSI for target glucose of 140- 180 mg/dL (re-introduce Lantus in am if sugars still running high) - Maintenance of sleep -wake cycle - Mobility as tolerated by hemodynamics - Influenza and pneumonia vaccination per protocol - discharge planning ongoing concurrently .... no family in room today PROGNOSIS: GUARDED CONDITION: CRITICAL CODE STATUS: FULL CODE The high probability of a clinically significant, sudden or life-threatening de terioration of the [respiratory, neurology, renal] system(s) required my full and direct attention, intervention and personal management. The aggregate critical care time was [32] minutes without overlap. Time includes spent on; [x] Data Review and interpretation [x] Patient assessment and monitoring of vital signs [x] Documentation [x] Medication orders and management Subjective Date of service: 08/30/18 Principal diagnosis: Acute hypoxemic resp failure; S/P cardiac arrest; Seizures; DM II; H/O CVA Interval history: Patient is seen today for: Acute hypoxemic respiratory failure on chronic; Status post cardiac arrest; Seizure disorder with breakthrough seizures; History of diabetes; History of cerebrovascular accident; Oropharyngeal dysphagia; History of seizures. Seen and examined at bedside; 24hour events reviewed; nursing and respiratory care staff consulted; no adverse overnight events reported to me; remains on MVS; AMS is persistent; remains on SBT but tolerating tenuously at time; Psupp at 10 cm H2O now; no emesis or overt aspiration; afebrile Objective Vital Signs - 12hr 08/30/18 08/30/18 08/30/18 04:31 05:00 05:31 Temperature Pulse Rate 69 70 71 Pulse Rate [ From Monitor] Respiratory 14 13 10 L Rate Blood Pressure 150/74 149/73 147/68 O2 Sat by Pulse 100 100 100 Oximetry O2 Sat by Pulse Oximetry [ Assessment] 08/30/18 08/30/18 08/30/18 05:45 06:00 06:30 Temperature Pulse Rate 71 69 73 Pulse Rate [ From Monitor] Respiratory 15 14 Rate Blood Pressure 147/68 146/75 145/75 O2 Sat by Pulse 100 100 Oximetry O2 Sat by Pulse Oximetry [ Assessment] 08/30/18 08/30/18 08/30/18 07:00 07:30 08:00 Temperature 98.9 F Pulse Rate 74 74 75 Pulse Rate [ 70 From Monitor] Respiratory 14 13 12 Rate Blood Pressure 138/70 148/65 139/71 O2 Sat by Pulse 100 99 100 Oximetry O2 Sat by Pulse 100 Oximetry [ Assessment] 08/30/18 08/30/18 08/30/18 08:30 09:00 09:30 Temperature Pulse Rate 76 74 74 Pulse Rate [ From Monitor] Respiratory 17 17 14 Rate Blood Pressure 141/69 151/69 139/71 O2 Sat by Pulse 98 98 98 Oximetry O2 Sat by Pulse Oximetry [ Assessment] 08/30/18 08/30/18 08/30/18 09:40 10:00 10:01 Temperature Pulse Rate 70 70 71 Pulse Rate [ From Monitor] Respiratory 16 12 Rate Blood Pressure 122/71 122/71 O2 Sat by Pulse 100 99 Oximetry O2 Sat by Pulse Oximetry [ Assessment] 08/30/18 08/30/18 08/30/18 10:30 11:01 11:31 Temperature Pulse Rate 71 70 69 Pulse Rate [ From Monitor] Respiratory 14 14 11 L Rate Blood Pressure 143/70 150/72 153/70 O2 Sat by Pulse 99 99 99 Oximetry O2 Sat by Pulse Oximetry [ Assessment] 08/30/18 08/30/18 08/30/18 12:00 12:30 13:00 Temperature 98.6 F Pulse Rate 74 70 73 Pulse Rate [ 70 From Monitor] Respiratory 12 14 13 Rate Blood Pressure 147/76 145/73 147/76 O2 Sat by Pulse 100 99 99 Oximetry O2 Sat by Pulse Oximetry [ Assessment] 08/30/18 08/30/18 08/30/18 13:30 14:38 15:58 Temperature 98.9 F Pulse Rate 74 75 Pulse Rate [ From Monitor] Respiratory 15 Rate Blood Pressure 141/73 138/74 O2 Sat by Pulse 97 Oximetry O2 Sat by Pulse Oximetry [ Assessment] Constitutional: no acute distress, other (Elderly looking AAM, normocephalic resting in bed on MVS) Eyes: non-icteric ENT: oropharynx moist Neck: supple, no lymphadenopathy, no JVD, other (s/p tracheostomy) Effort: mildly labored Ascultation: Bilateral: diminished breath sounds, rhonchi Percussion: Bilateral: not dull Cardiovascular: regular rate and rhythm Gastrointestinal: normoactive bowel sounds, soft, non-tender, non-distended Integumentary: normal Extremities: no cyanosis, pulses normal, no ischemia or petechiae, edema (trace ) Neurologic: unable to assess, other (slight pupillary constriction to light) Psychiatric: other (unable to assess) CBC and BMP: 08/30/18 05:40 08/30/18 05:40 ABG, PT/INR, D-dimer: ABG POC ABG pH 7.444 (7.35-7.45) 08/29/18 16:45 POC ABG pCO2 41.7 (35-45) 08/29/18 16:45 POC ABG pO2 118 (80-105) H 08/29/18 16:45 POC ABG HCO3 28.6 (22-26 mml/L) 08/29/18 16:45 POC ABG Total CO2 30 (23-27mmol/L) 08/29/18 16:45 POC ABG O2 Sat 99 08/29/18 16:45 PT/INR, D-dimer PT 16.5 Sec. (12.2-14.9) H 08/13/18 00:47 INR 1.25 (0.87-1.13) H 08/13/18 00:47 2742.50 ng/mlDDU (0-234) H 08/13/18 20:07 Abnormal lab findings: Abnormal Labs 08/12/18 08/12/18 08/12/18 21:44 21:44 21:44 WBC 15.5 H RBC 3.12 L Hgb 8.8 L Hct 28.9 L MCV MCH MCHC 31 L RDW 19.5 H Lymph % (Auto) [place] % (Auto) Eos % (Auto) Lymph # [place] # Eos # Seg Neutrophils % Lymphocytes % (Manual) 48.0 H Seg Neutrophils # Lymphocytes # (Manual) 7.4 H PT 17.8 H INR 1.37 H APTT D-Dimer Heparin Anti-Xa Level POC ABG pH POC ABG pCO2 POC ABG pO2 Sodium 159 H Potassium Chloride 118.5 H Carbon Dioxide BUN 34 H Creatinine Glucose 161 H POC Glucose Lactic Acid Calcium Magnesium AST Alkaline Phosphatase Total Creatine Kinase CK-MB (CK-2) Troponin T 0.105 H* C-Reactive Protein Total Protein Albumin Cholesterol LDL Cholesterol Direct HDL Cholesterol Free T4 Urine WBC (Auto) Urine Creatinine Urine Total Protein Crossmatch 08/13/18 08/13/18 08/13/18 00:32 00:47 00:47 WBC RBC Hgb 9.2 L Hct 29.6 L MCV MCH MCHC RDW Lymph % (Auto) [place] % (Auto) Eos % (Auto) Lymph # [place] # Eos # Seg Neutrophils % Lymphocytes % (Manual) Seg Neutrophils # Lymphocytes # (Manual) PT 16.5 H INR 1.25 H APTT 37.3 H D-Dimer Heparin Anti-Xa Level POC ABG pH POC ABG pCO2 POC ABG pO2 Sodium Potassium Chloride Carbon Dioxide BUN Creatinine Glucose POC Glucose Lactic Acid Calcium Magnesium AST Alkaline Phosphatase Total Creatine Kinase 211 H CK-MB (CK-2) 7.7 H Troponin T 0.169 H* D C-Reactive Protein Total Protein Albumin Cholesterol 46 L LDL Cholesterol Direct 17 L HDL Cholesterol 6 L Free T4 Urine WBC (Auto) Urine Creatinine Urine Total Protein Crossmatch 08/13/18 08/13/18 08/13/18 00:50 02:25 05:34 WBC RBC Hgb Hct MCV MCH MCHC RDW Lymph % (Auto) [place] % (Auto) Eos % (Auto) Lymph # [place] # Eos # Seg Neutrophils % Lymphocytes % (Manual) Seg Neutrophils # Lymphocytes # (Manual) PT INR APTT D-Dimer Heparin Anti-Xa Level POC ABG pH 7.503 H POC ABG pCO2 POC ABG pO2 253 H Sodium Potassium Chloride Carbon Dioxide BUN Creatinine Glucose POC Glucose Lactic Acid Calcium Magnesium AST Alkaline Phosphatase Total Creatine Kinase 311 H CK-MB (CK-2) 10.4 H Troponin T 0.283 H* D C-Reactive Protein Total Protein Albumin Cholesterol LDL Cholesterol Direct HDL Cholesterol Free T4 Urine WBC (Auto) > 182.0 H Urine Creatinine Urine Total Protein Crossmatch 08/13/18 08/13/18 08/13/18 06:35 10:10 10:10 WBC RBC Hgb Hct MCV MCH MCHC RDW Lymph % (Auto) [place] % (Auto) Eos % (Auto) Lymph # [place] # Eos # Seg Neutrophils % Lymphocytes % (Manual) Seg Neutrophils # Lymphocytes # (Manual) PT INR APTT D-Dimer Heparin Anti-Xa Level POC ABG pH 7.554 H POC ABG pCO2 33.5 L POC ABG pO2 220 H Sodium 158 H Potassium Chloride 117.1 H Carbon Dioxide BUN 53 H Creatinine 2.0 H Glucose 247 H POC Glucose Lactic Acid Calcium 8.2 L Magnesium AST Alkaline Phosphatase Total Creatine Kinase 309 H CK-MB (CK-2) 4.1 H Troponin T 0.470 H* D C-Reactive Protein Total Protein Albumin Cholesterol LDL Cholesterol Direct HDL Cholesterol Free T4 Urine WBC (Auto) Urine Creatinine Urine Total Protein Crossmatch 08/13/18 08/13/18 08/13/18 12:53 12:53 17:55 WBC RBC Hgb Hct MCV MCH MCHC RDW Lymph % (Auto) [place] % (Auto) Eos % (Auto) Lymph # [place] # Eos # Seg Neutrophils % Lymphocytes % (Manual) Seg Neutrophils # Lymphocytes # (Manual) PT INR APTT D-Dimer Heparin Anti-Xa Level POC ABG pH POC ABG pCO2 POC ABG pO2 Sodium Potassium Chloride Carbon Dioxide BUN Creatinine Glucose POC Glucose 308 H Lactic Acid 2.80 H* Calcium Magnesium 2.50 H AST Alkaline Phosphatase Total Creatine Kinase CK-MB (CK-2) Troponin T C-Reactive Protein 16.90 H Total Protein Albumin Cholesterol LDL Cholesterol Direct HDL Cholesterol Free T4 Urine WBC (Auto) Urine Creatinine Urine Total Protein Crossmatch 08/13/18 08/13/18 08/13/18 20:07 21:16 23:17 WBC RBC Hgb Hct MCV MCH MCHC RDW Lymph % (Auto) [place] % (Auto) Eos % (Auto) Lymph # [place] # Eos # Seg Neutrophils % Lymphocytes % (Manual) Seg Neutrophils # Lymphocytes # (Manual) PT INR APTT D-Dimer 2742.50 H Heparin Anti-Xa Level POC ABG pH 7.483 H POC ABG pCO2 30.8 L POC ABG pO2 150 H Sodium Potassium Chloride Carbon Dioxide BUN Creatinine Glucose POC Glucose 245 H Lactic Acid Calcium Magnesium AST Alkaline Phosphatase Total Creatine Kinase CK-MB (CK-2) Troponin T C-Reactive Protein Total Protein Albumin Cholesterol LDL Cholesterol Direct HDL Cholesterol Free T4 Urine WBC (Auto) Urine Creatinine Urine Total Protein Crossmatch 08/14/18 08/14/18 08/14/18 04:03 04:03 04:56 WBC 18.2 H RBC 2.62 L Hgb 7.3 L Hct 24.5 L MCV MCH MCHC RDW 18.9 H Lymph % (Auto) [place] % (Auto) Eos % (Auto) Lymph # [place] # 1.2 H Eos # Seg Neutrophils % 79.4 H Lymphocytes % (Manual) Seg Neutrophils # 14.5 H Lymphocytes # (Manual) PT INR APTT D-Dimer Heparin Anti-Xa Level POC ABG pH POC ABG pCO2 33.5 L POC ABG pO2 153 H Sodium 152 H Potassium 3.4 L Chloride 113.8 H Carbon Dioxide BUN 72 H Creatinine 2.7 H Glucose 239 H POC Glucose Lactic Acid Calcium 7.6 L Magnesium AST 50 H Alkaline Phosphatase 219 H Total Creatine Kinase CK-MB (CK-2) Troponin T 0.409 H* C-Reactive Protein Total Protein 6.2 L Albumin 1.9 L Cholesterol LDL Cholesterol Direct HDL Cholesterol Free T4 Urine WBC (Auto) Urine Creatinine Urine Total Protein Crossmatch 08/14/18 08/14/18 08/14/18 05:18 13:38 15:35 WBC RBC Hgb Hct MCV MCH MCHC RDW Lymph % (Auto) [place] % (Auto) Eos % (Auto) Lymph # [place] # Eos # Seg Neutrophils % Lymphocytes % (Manual) Seg Neutrophils # Lymphocytes # (Manual) PT INR APTT D-Dimer Heparin Anti-Xa Level POC ABG pH POC ABG pCO2 POC ABG pO2 Sodium 150 H Potassium 3.2 L Chloride 114.5 H Carbon Dioxide BUN 69 H Creatinine 2.3 H Glucose 247 H POC Glucose 242 H 296 H Lactic Acid Calcium 7.2 L Magnesium AST Alkaline Phosphatase Total Creatine Kinase CK-MB (CK-2) Troponin T C-Reactive Protein Total Protein Albumin Cholesterol LDL Cholesterol Direct HDL Cholesterol Free T4 Urine WBC (Auto) Urine Creatinine Urine Total Protein Crossmatch 08/14/18 08/14/18 08/14/18 17:01 17:20 23:47 WBC RBC Hgb Hct MCV MCH MCHC RDW Lymph % (Auto) [place] % (Auto) Eos % (Auto) Lymph # [place] # Eos # Seg Neutrophils % Lymphocytes % (Manual) Seg Neutrophils # Lymphocytes # (Manual) PT INR APTT D-Dimer Heparin Anti-Xa Level POC ABG pH POC ABG pCO2 POC ABG pO2 Sodium Potassium Chloride Carbon Dioxide BUN Creatinine Glucose POC Glucose 261 H 280 H Lactic Acid Calcium Magnesium AST Alkaline Phosphatase Total Creatine Kinase CK-MB (CK-2) Troponin T C-Reactive Protein Total Protein Albumin Cholesterol LDL Cholesterol Direct HDL Cholesterol Free T4 Urine WBC (Auto) Urine Creatinine 60.9 H Urine Total Protein 64 H Crossmatch 08/15/18 08/15/18 08/15/18 04:05 04:05 04:05 WBC RBC Hgb 6.3 L Hct 19.7 L* MCV MCH MCHC RDW Lymph % (Auto) [place] % (Auto) Eos % (Auto) Lymph # [place] # Eos # Seg Neutrophils % Lymphocytes % (Manual) Seg Neutrophils # Lymphocytes # (Manual) PT INR APTT D-Dimer Heparin Anti-Xa Level 0.17 L POC ABG pH POC ABG pCO2 POC ABG pO2 Sodium 146 H Potassium 3.0 L Chloride 110.6 H Carbon Dioxide BUN 64 H Creatinine 2.2 H Glucose 231 H POC Glucose Lactic Acid Calcium 7.1 L Magnesium AST Alkaline Phosphatase Total Creatine Kinase CK-MB (CK-2) Troponin T C-Reactive Protein Total Protein Albumin Cholesterol LDL Cholesterol Direct HDL Cholesterol Free T4 Urine WBC (Auto) Urine Creatinine Urine Total Protein Crossmatch 08/15/18 08/15/18 08/15/18 05:21 05:26 06:35 WBC RBC Hgb Hct MCV MCH MCHC RDW Lymph % (Auto) [place] % (Auto) Eos % (Auto) Lymph # [place] # Eos # Seg Neutrophils % Lymphocytes % (Manual) Seg Neutrophils # Lymphocytes # (Manual) PT INR APTT 79.0 H* D-Dimer Heparin Anti-Xa Level POC ABG pH 7.494 H POC ABG pCO2 POC ABG pO2 155 H Sodium Potassium Chloride Carbon Dioxide BUN Creatinine Glucose POC Glucose 271 H Lactic Acid Calcium Magnesium AST Alkaline Phosphatase Total Creatine Kinase CK-MB (CK-2) Troponin T C-Reactive Protein Total Protein Albumin Cholesterol LDL Cholesterol Direct HDL Cholesterol Free T4 Urine WBC (Auto) Urine Creatinine Urine Total Protein Crossmatch 08/15/18 08/15/18 08/15/18 12:10 15:31 17:27 WBC RBC Hgb Hct MCV MCH MCHC RDW Lymph % (Auto) [place] % (Auto) Eos % (Auto) Lymph # [place] # Eos # Seg Neutrophils % Lymphocytes % (Manual) Seg Neutrophils # Lymphocytes # (Manual) PT INR APTT D-Dimer Heparin Anti-Xa Level POC ABG pH POC ABG pCO2 POC ABG pO2 Sodium Potassium Chloride Carbon Dioxide BUN Creatinine Glucose POC Glucose 301 H 287 H Lactic Acid Calcium Magnesium AST Alkaline Phosphatase Total Creatine Kinase CK-MB (CK-2) Troponin T C-Reactive Protein Total Protein Albumin Cholesterol LDL Cholesterol Direct HDL Cholesterol Free T4 Urine WBC (Auto) Urine Creatinine Urine Total Protein Crossmatch See Detail 08/15/18 08/15/18 08/16/18 21:41 23:45 04:13 WBC RBC Hgb Hct MCV MCH MCHC RDW Lymph % (Auto) [place] % (Auto) Eos % (Auto) Lymph # [place] # Eos # Seg Neutrophils % Lymphocytes % (Manual) Seg Neutrophils # Lymphocytes # (Manual) PT INR APTT D-Dimer Heparin Anti-Xa Level 0.19 L POC ABG pH POC ABG pCO2 32.1 L POC ABG pO2 107 H Sodium Potassium Chloride Carbon Dioxide BUN Creatinine Glucose POC Glucose 163 H Lactic Acid Calcium Magnesium AST Alkaline Phosphatase Total Creatine Kinase CK-MB (CK-2) Troponin T C-Reactive Protein Total Protein Albumin Cholesterol LDL Cholesterol Direct HDL Cholesterol Free T4 Urine WBC (Auto) Urine Creatinine Urine Total Protein Crossmatch 08/16/18 08/16/18 08/16/18 04:50 05:28 11:30 WBC RBC 2.67 L Hgb 8.1 L Hct 23.4 L MCV MCH MCHC 35 H RDW 18.3 H Lymph % (Auto) [place] % (Auto) Eos % (Auto) Lymph # [place] # Eos # Seg Neutrophils % Lymphocytes % (Manual) Seg Neutrophils # Lymphocytes # (Manual) PT INR APTT D-Dimer Heparin Anti-Xa Level 0.19 L POC ABG pH POC ABG pCO2 POC ABG pO2 Sodium Potassium Chloride Carbon Dioxide BUN Creatinine Glucose POC Glucose 141 H Lactic Acid Calcium Magnesium AST Alkaline Phosphatase Total Creatine Kinase CK-MB (CK-2) Troponin T C-Reactive Protein Total Protein Albumin Cholesterol LDL Cholesterol Direct HDL Cholesterol Free T4 Urine WBC (Auto) Urine Creatinine Urine Total Protein Crossmatch 08/16/18 08/16/18 08/16/18 11:30 12:00 12:01 WBC RBC Hgb Hct MCV MCH MCHC RDW Lymph % (Auto) [facility] % (Auto) Eos % (Auto) Lymph # [facility] # Eos # Seg Neutrophils % Lymphocytes % (Manual) Seg Neutrophils # Lymphocytes # (Manual) PT INR APTT D-Dimer Heparin Anti-Xa Level 0.15 L POC ABG pH POC ABG pCO2 POC ABG pO2 Sodium Potassium Chloride 107.8 H Carbon Dioxide 21 L BUN 47 H Creatinine 1.6 H Glucose 221 H POC Glucose 267 H Lactic Acid Calcium 6.9 L Magnesium AST Alkaline Phosphatase Total Creatine Kinase CK-MB (CK-2) Troponin T C-Reactive Protein Total Protein Albumin Cholesterol LDL Cholesterol Direct HDL Cholesterol Free T4 Urine WBC (Auto) Urine Creatinine Urine Total Protein Crossmatch 08/16/18 08/16/18 08/16/18 17:23 20:01 23:13 WBC RBC Hgb Hct MCV MCH MCHC RDW Lymph % (Auto) [facility] % (Auto) Eos % (Auto) Lymph # [facility] # Eos # Seg Neutrophils % Lymphocytes % (Manual) Seg Neutrophils # Lymphocytes # (Manual) PT INR APTT D-Dimer Heparin Anti-Xa Level 0.26 L POC ABG pH POC ABG pCO2 POC ABG pO2 Sodium Potassium Chloride Carbon Dioxide BUN Creatinine Glucose POC Glucose 245 H 256 H Lactic Acid Calcium Magnesium AST Alkaline Phosphatase Total Creatine Kinase CK-MB (CK-2) Troponin T C-Reactive Protein Total Protein Albumin Cholesterol LDL Cholesterol Direct HDL Cholesterol Free T4 Urine WBC (Auto) Urine Creatinine Urine Total Protein Crossmatch 08/17/18 08/17/18 08/17/18 04:29 04:55 05:34 WBC RBC Hgb 8.2 L Hct 24.3 L MCV MCH MCHC RDW Lymph % (Auto) [facility] % (Auto) Eos % (Auto) Lymph # [place] # Eos # Seg Neutrophils % Lymphocytes % (Manual) Seg Neutrophils # Lymphocytes # (Manual) PT INR APTT D-Dimer Heparin Anti-Xa Level POC ABG pH POC ABG pCO2 32.4 L POC ABG pO2 108 H Sodium Potassium Chloride Carbon Dioxide BUN Creatinine Glucose POC Glucose 268 H Lactic Acid Calcium Magnesium AST Alkaline Phosphatase Total Creatine Kinase CK-MB (CK-2) Troponin T C-Reactive Protein Total Protein Albumin Cholesterol LDL Cholesterol Direct HDL Cholesterol Free T4 Urine WBC (Auto) Urine Creatinine Urine Total Protein Crossmatch 08/17/18 08/17/18 08/17/18 11:54 13:44 17:24 WBC RBC Hgb Hct MCV MCH MCHC RDW Lymph % (Auto) [facility] % (Auto) Eos % (Auto) Lymph # [facility] # Eos # Seg Neutrophils % Lymphocytes % (Manual) Seg Neutrophils # Lymphocytes # (Manual) PT INR APTT D-Dimer Heparin Anti-Xa Level POC ABG pH POC ABG pCO2 32.7 L POC ABG pO2 142 H Sodium Potassium Chloride Carbon Dioxide BUN Creatinine Glucose POC Glucose 295 H 283 H Lactic Acid Calcium Magnesium AST Alkaline Phosphatase Total Creatine Kinase CK-MB (CK-2) Troponin T C-Reactive Protein Total Protein Albumin Cholesterol LDL Cholesterol Direct HDL Cholesterol Free T4 Urine WBC (Auto) Urine Creatinine Urine Total Protein Crossmatch 08/18/18 08/18/18 08/18/18 00:05 00:59 04:15 WBC RBC Hgb Hct MCV MCH MCHC RDW Lymph % (Auto) [facility] % (Auto) Eos % (Auto) Lymph # [facility] # Eos # Seg Neutrophils % Lymphocytes % (Manual) Seg Neutrophils # Lymphocytes # (Manual) PT INR APTT D-Dimer Heparin Anti-Xa Level POC ABG pH POC ABG pCO2 POC ABG pO2 115 H Sodium Potassium Chloride Carbon Dioxide BUN Creatinine Glucose POC Glucose 247 H 251 H Lactic Acid Calcium Magnesium AST Alkaline Phosphatase Total Creatine Kinase CK-MB (CK-2) Troponin T C-Reactive Protein Total Protein Albumin Cholesterol LDL Cholesterol Direct HDL Cholesterol Free T4 Urine WBC (Auto) Urine Creatinine Urine Total Protein Crossmatch 08/18/18 08/18/18 08/18/18 05:02 12:20 17:51 WBC RBC Hgb Hct MCV MCH MCHC RDW Lymph % (Auto) [facility] % (Auto) Eos % (Auto) Lymph # [facility] # Eos # Seg Neutrophils % Lymphocytes % (Manual) Seg Neutrophils # Lymphocytes # (Manual) PT INR APTT D-Dimer Heparin Anti-Xa Level POC ABG pH POC ABG pCO2 POC ABG pO2 Sodium Potassium Chloride Carbon Dioxide BUN Creatinine Glucose POC Glucose 282 H 209 H 261 H Lactic Acid Calcium Magnesium AST Alkaline Phosphatase Total Creatine Kinase CK-MB (CK-2) Troponin T C-Reactive Protein Total Protein Albumin Cholesterol LDL Cholesterol Direct HDL Cholesterol Free T4 Urine WBC (Auto) Urine Creatinine Urine Total Protein Crossmatch 08/18/18 08/19/18 08/19/18 23:30 04:54 05:16 WBC RBC 2.62 L Hgb 7.5 L Hct 23.1 L MCV MCH MCHC RDW 18.1 H Lymph % (Auto) [facility] % (Auto) Eos % (Auto) Lymph # [place] # Eos # Seg Neutrophils % Lymphocytes % (Manual) Seg Neutrophils # Lymphocytes # (Manual) PT INR APTT D-Dimer Heparin Anti-Xa Level POC ABG pH POC ABG pCO2 POC ABG pO2 58 L Sodium Potassium Chloride Carbon Dioxide BUN Creatinine Glucose POC Glucose 231 H Lactic Acid Calcium Magnesium AST Alkaline Phosphatase Total Creatine Kinase CK-MB (CK-2) Troponin T C-Reactive Protein Total Protein Albumin Cholesterol LDL Cholesterol Direct HDL Cholesterol Free T4 Urine WBC (Auto) Urine Creatinine Urine Total Protein Crossmatch 08/19/18 08/19/18 08/19/18 05:16 05:40 11:56 WBC RBC Hgb Hct MCV MCH MCHC RDW Lymph % (Auto) [facility] % (Auto) Eos % (Auto) Lymph # [facility] # Eos # Seg Neutrophils % Lymphocytes % (Manual) Seg Neutrophils # Lymphocytes # (Manual) PT INR APTT D-Dimer Heparin Anti-Xa Level POC ABG pH POC ABG pCO2 POC ABG pO2 Sodium 152 H D Potassium Chloride 118.7 H Carbon Dioxide BUN 38 H Creatinine Glucose 220 H POC Glucose 227 H 213 H Lactic Acid Calcium 8.1 L D Magnesium AST Alkaline Phosphatase Total Creatine Kinase CK-MB (CK-2) Troponin T C-Reactive Protein Total Protein Albumin Cholesterol LDL Cholesterol Direct HDL Cholesterol Free T4 Urine WBC (Auto) Urine Creatinine Urine Total Protein Crossmatch 08/19/18 08/19/18 08/20/18 18:37 23:32 04:38 WBC RBC Hgb Hct MCV MCH MCHC RDW Lymph % (Auto) [facility] % (Auto) Eos % (Auto) Lymph # [facility] # Eos # Seg Neutrophils % Lymphocytes % (Manual) Seg Neutrophils # Lymphocytes # (Manual) PT INR APTT D-Dimer Heparin Anti-Xa Level POC ABG pH POC ABG pCO2 POC ABG pO2 140 H Sodium Potassium Chloride Carbon Dioxide BUN Creatinine Glucose POC Glucose 227 H 245 H Lactic Acid Calcium Magnesium AST Alkaline Phosphatase Total Creatine Kinase CK-MB (CK-2) Troponin T C-Reactive Protein Total Protein Albumin Cholesterol LDL Cholesterol Direct HDL Cholesterol Free T4 Urine WBC (Auto) Urine Creatinine Urine Total Protein Crossmatch 08/20/18 08/20/18 08/20/18 05:31 05:37 05:37 WBC RBC 2.60 L Hgb 7.5 L Hct 22.9 L MCV MCH MCHC RDW 18.4 H Lymph % (Auto) [facility] % (Auto) Eos % (Auto) Lymph # [facility] # Eos # Seg Neutrophils % Lymphocytes % (Manual) Seg Neutrophils # Lymphocytes # (Manual) PT INR APTT D-Dimer Heparin Anti-Xa Level POC ABG pH POC ABG pCO2 POC ABG pO2 Sodium 150 H Potassium Chloride 115.6 H Carbon Dioxide BUN 38 H Creatinine Glucose 276 H POC Glucose 266 H Lactic Acid Calcium 7.9 L Magnesium AST Alkaline Phosphatase Total Creatine Kinase CK-MB (CK-2) Troponin T C-Reactive Protein Total Protein Albumin Cholesterol LDL Cholesterol Direct HDL Cholesterol Free T4 Urine WBC (Auto) Urine Creatinine Urine Total Protein Crossmatch 08/20/18 08/20/18 08/20/18 14:01 18:20 23:11 WBC RBC Hgb Hct MCV MCH MCHC RDW Lymph % (Auto) [facility] % (Auto) Eos % (Auto) Lymph # [facility] # Eos # Seg Neutrophils % Lymphocytes % (Manual) Seg Neutrophils # Lymphocytes # (Manual) PT INR APTT D-Dimer Heparin Anti-Xa Level POC ABG pH POC ABG pCO2 POC ABG pO2 Sodium Potassium Chloride Carbon Dioxide BUN Creatinine Glucose POC Glucose 305 H 271 H 218 H Lactic Acid Calcium Magnesium AST Alkaline Phosphatase Total Creatine Kinase CK-MB (CK-2) Troponin T C-Reactive Protein Total Protein Albumin Cholesterol LDL Cholesterol Direct HDL Cholesterol Free T4 Urine WBC (Auto) Urine Creatinine Urine Total Protein Crossmatch 08/21/18 08/21/18 08/21/18 04:41 04:41 06:20 WBC RBC 2.65 L Hgb 7.6 L Hct 23.3 L MCV MCH MCHC RDW 19.1 H Lymph % (Auto) [facility] % (Auto) Eos % (Auto) Lymph # [facility] # Eos # Seg Neutrophils % Lymphocytes % (Manual) Seg Neutrophils # Lymphocytes # (Manual) PT INR APTT D-Dimer Heparin Anti-Xa Level POC ABG pH POC ABG pCO2 POC ABG pO2 Sodium 150 H Potassium Chloride 117.8 H Carbon Dioxide BUN 37 H Creatinine Glucose 233 H POC Glucose 262 H Lactic Acid Calcium 7.9 L Magnesium AST Alkaline Phosphatase Total Creatine Kinase CK-MB (CK-2) Troponin T C-Reactive Protein Total Protein Albumin Cholesterol LDL Cholesterol Direct HDL Cholesterol Free T4 Urine WBC (Auto) Urine Creatinine Urine Total Protein Crossmatch 08/21/18 08/21/18 08/21/18 10:18 12:04 12:36 WBC RBC Hgb Hct MCV MCH MCHC RDW Lymph % (Auto) [place] % (Auto) Eos % (Auto) Lymph # [place] # Eos # Seg Neutrophils % Lymphocytes % (Manual) Seg Neutrophils # Lymphocytes # (Manual) PT INR APTT D-Dimer Heparin Anti-Xa Level POC ABG pH POC ABG pCO2 POC ABG pO2 Sodium Potassium Chloride Carbon Dioxide BUN Creatinine Glucose POC Glucose 256 H 245 H 255 H Lactic Acid Calcium Magnesium AST Alkaline Phosphatase Total Creatine Kinase CK-MB (CK-2) Troponin T C-Reactive Protein Total Protein Albumin Cholesterol LDL Cholesterol Direct HDL Cholesterol Free T4 Urine WBC (Auto) Urine Creatinine Urine Total Protein Crossmatch 08/21/18 08/21/18 08/22/18 17:36 23:29 05:01 WBC RBC Hgb Hct MCV MCH MCHC RDW Lymph % (Auto) [place] % (Auto) Eos % (Auto) Lymph # [place] # Eos # Seg Neutrophils % Lymphocytes % (Manual) Seg Neutrophils # Lymphocytes # (Manual) PT INR APTT D-Dimer Heparin Anti-Xa Level POC ABG pH 7.466 H POC ABG pCO2 33.8 L POC ABG pO2 111 H Sodium Potassium Chloride Carbon Dioxide BUN Creatinine Glucose POC Glucose 263 H 268 H Lactic Acid Calcium Magnesium AST Alkaline Phosphatase Total Creatine Kinase CK-MB (CK-2) Troponin T C-Reactive Protein Total Protein Albumin Cholesterol LDL Cholesterol Direct HDL Cholesterol Free T4 Urine WBC (Auto) Urine Creatinine Urine Total Protein Crossmatch 08/22/18 08/22/18 08/22/18 05:05 12:05 12:15 WBC RBC Hgb Hct MCV MCH MCHC RDW Lymph % (Auto) [place] % (Auto) Eos % (Auto) Lymph # [place] # Eos # Seg Neutrophils % Lymphocytes % (Manual) Seg Neutrophils # Lymphocytes # (Manual) PT INR APTT D-Dimer Heparin Anti-Xa Level POC ABG pH POC ABG pCO2 POC ABG pO2 Sodium 147 H Potassium Chloride 113.2 H Carbon Dioxide BUN 36 H Creatinine Glucose 249 H POC Glucose 256 H 228 H Lactic Acid Calcium 8.2 L Magnesium AST Alkaline Phosphatase Total Creatine Kinase CK-MB (CK-2) Troponin T C-Reactive Protein Total Protein Albumin Cholesterol LDL Cholesterol Direct HDL Cholesterol Free T4 Urine WBC (Auto) Urine Creatinine Urine Total Protein Crossmatch 08/22/18 08/23/18 08/23/18 17:30 00:03 05:05 WBC RBC Hgb Hct MCV MCH MCHC RDW Lymph % (Auto) [place] % (Auto) Eos % (Auto) Lymph # [place] # Eos # Seg Neutrophils % Lymphocytes % (Manual) Seg Neutrophils # Lymphocytes # (Manual) PT INR APTT D-Dimer Heparin Anti-Xa Level POC ABG pH POC ABG pCO2 POC ABG pO2 Sodium Potassium Chloride Carbon Dioxide BUN Creatinine Glucose POC Glucose 291 H 259 H 247 H Lactic Acid Calcium Magnesium AST Alkaline Phosphatase Total Creatine Kinase CK-MB (CK-2) Troponin T C-Reactive Protein Total Protein Albumin Cholesterol LDL Cholesterol Direct HDL Cholesterol Free T4 Urine WBC (Auto) Urine Creatinine Urine Total Protein Crossmatch 08/23/18 08/23/18 08/23/18 05:14 12:29 17:21 WBC RBC Hgb Hct MCV MCH MCHC RDW Lymph % (Auto) [place] % (Auto) Eos % (Auto) Lymph # [place] # Eos # Seg Neutrophils % Lymphocytes % (Manual) Seg Neutrophils # Lymphocytes # (Manual) PT INR APTT D-Dimer Heparin Anti-Xa Level POC ABG pH POC ABG pCO2 POC ABG pO2 Sodium Potassium Chloride Carbon Dioxide BUN Creatinine Glucose POC Glucose 208 H 138 H 175 H Lactic Acid Calcium Magnesium AST Alkaline Phosphatase Total Creatine Kinase CK-MB (CK-2) Troponin T C-Reactive Protein Total Protein Albumin Cholesterol LDL Cholesterol Direct HDL Cholesterol Free T4 Urine WBC (Auto) Urine Creatinine Urine Total Protein Crossmatch 08/23/18 08/24/18 08/24/18 23:36 01:00 05:50 WBC RBC 2.92 L 2.90 L Hgb 8.3 L 8.2 L Hct 25.4 L 25.2 L MCV MCH MCHC RDW 18.9 H 18.6 H Lymph % (Auto) [place] % (Auto) 9.2 H Eos % (Auto) Lymph # [place] # Eos # Seg Neutrophils % Lymphocytes % (Manual) Seg Neutrophils # Lymphocytes # (Manual) PT INR APTT D-Dimer Heparin Anti-Xa Level POC ABG pH POC ABG pCO2 POC ABG pO2 Sodium Potassium Chloride Carbon Dioxide BUN Creatinine Glucose POC Glucose 163 H Lactic Acid Calcium Magnesium AST Alkaline Phosphatase Total Creatine Kinase CK-MB (CK-2) Troponin T C-Reactive Protein Total Protein Albumin Cholesterol LDL Cholesterol Direct HDL Cholesterol Free T4 Urine WBC (Auto) Urine Creatinine Urine Total Protein Crossmatch 08/24/18 08/24/18 08/24/18 05:50 12:26 18:37 WBC RBC Hgb Hct MCV MCH MCHC RDW Lymph % (Auto) [place] % (Auto) Eos % (Auto) Lymph # [place] # Eos # Seg Neutrophils % Lymphocytes % (Manual) Seg Neutrophils # Lymphocytes # (Manual) PT INR APTT D-Dimer Heparin Anti-Xa Level POC ABG pH POC ABG pCO2 POC ABG pO2 Sodium 147 H Potassium Chloride 113.6 H Carbon Dioxide BUN 33 H Creatinine Glucose 210 H POC Glucose 223 H 166 H Lactic Acid Calcium 8.3 L Magnesium AST Alkaline Phosphatase Total Creatine Kinase CK-MB (CK-2) Troponin T C-Reactive Protein Total Protein Albumin Cholesterol LDL Cholesterol Direct HDL Cholesterol Free T4 Urine WBC (Auto) Urine Creatinine Urine Total Protein Crossmatch 08/24/18 08/25/18 08/25/18 23:47 04:55 04:55 WBC RBC 2.94 L Hgb 8.4 L Hct 25.1 L MCV MCH MCHC RDW 18.2 H Lymph % (Auto) [place] % (Auto) Eos % (Auto) Lymph # [place] # Eos # Seg Neutrophils % Lymphocytes % (Manual) Seg Neutrophils # Lymphocytes # (Manual) PT INR APTT D-Dimer Heparin Anti-Xa Level POC ABG pH POC ABG pCO2 POC ABG pO2 Sodium Potassium Chloride 110.2 H Carbon Dioxide BUN 30 H Creatinine Glucose POC Glucose 126 H Lactic Acid Calcium 8.1 L Magnesium AST Alkaline Phosphatase Total Creatine Kinase CK-MB (CK-2) Troponin T C-Reactive Protein Total Protein Albumin Cholesterol LDL Cholesterol Direct HDL Cholesterol Free T4 Urine WBC (Auto) Urine Creatinine Urine Total Protein Crossmatch 08/25/18 08/26/18 08/26/18 12:40 04:39 04:39 WBC RBC 2.96 L Hgb 8.3 L Hct 25.7 L MCV MCH MCHC RDW 18.2 H Lymph % (Auto) 10.[address] % (Auto) 9.3 H Eos % (Auto) Lymph # 0.[address] # Eos # Seg Neutrophils % 77.0 H Lymphocytes % (Manual) Seg Neutrophils # Lymphocytes # (Manual) PT INR APTT D-Dimer Heparin Anti-Xa Level POC ABG pH POC ABG pCO2 POC ABG pO2 Sodium 147 H Potassium Chloride 113.5 H Carbon Dioxide BUN 27 H Creatinine 0.7 L Glucose 106 H POC Glucose Lactic Acid Calcium 8.0 L Magnesium AST Alkaline Phosphatase Total Creatine Kinase CK-MB (CK-2) Troponin T C-Reactive Protein Total Protein Albumin Cholesterol LDL Cholesterol Direct HDL Cholesterol Free T4 Urine WBC (Auto) > 182.0 H Urine Creatinine Urine Total Protein Crossmatch 08/26/18 08/26/18 08/26/18 05:27 09:00 09:54 WBC RBC Hgb Hct MCV MCH MCHC RDW Lymph % (Auto) [place] % (Auto) Eos % (Auto) Lymph # [place] # Eos # Seg Neutrophils % Lymphocytes % (Manual) Seg Neutrophils # Lymphocytes # (Manual) PT INR APTT D-Dimer Heparin Anti-Xa Level POC ABG pH POC ABG pCO2 POC ABG pO2 Sodium Potassium Chloride Carbon Dioxide BUN Creatinine Glucose POC Glucose 120 H 170 H Lactic Acid Calcium Magnesium AST Alkaline Phosphatase Total Creatine Kinase CK-MB (CK-2) Troponin T C-Reactive Protein Total Protein Albumin Cholesterol LDL Cholesterol Direct HDL Cholesterol Free T4 0.51 L Urine WBC (Auto) Urine Creatinine Urine Total Protein Crossmatch 08/26/18 08/26/18 08/27/18 14:52 17:50 06:30 WBC RBC Hgb Hct MCV MCH MCHC RDW Lymph % (Auto) [place] % (Auto) Eos % (Auto) Lymph # [place] # Eos # Seg Neutrophils % Lymphocytes % (Manual) Seg Neutrophils # Lymphocytes # (Manual) PT INR APTT D-Dimer Heparin Anti-Xa Level POC ABG pH POC ABG pCO2 POC ABG pO2 Sodium 150 H Potassium Chloride 114.8 H Carbon Dioxide BUN 24 H Creatinine 0.7 L Glucose 131 H POC Glucose 166 H 107 H Lactic Acid Calcium 7.8 L Magnesium AST Alkaline Phosphatase Total Creatine Kinase CK-MB (CK-2) Troponin T C-Reactive Protein Total Protein Albumin Cholesterol LDL Cholesterol Direct HDL Cholesterol Free T4 Urine WBC (Auto) Urine Creatinine Urine Total Protein Crossmatch 08/27/18 08/27/18 08/27/18 08:22 14:20 16:06 WBC RBC Hgb Hct MCV MCH MCHC RDW Lymph % (Auto) [facility] % (Auto) Eos % (Auto) Lymph # [place] # Eos # Seg Neutrophils % Lymphocytes % (Manual) Seg Neutrophils # Lymphocytes # (Manual) PT INR APTT D-Dimer Heparin Anti-Xa Level POC ABG pH POC ABG pCO2 POC ABG pO2 Sodium Potassium Chloride Carbon Dioxide BUN Creatinine Glucose POC Glucose 112 H 151 H 158 H Lactic Acid Calcium Magnesium AST Alkaline Phosphatase Total Creatine Kinase CK-MB (CK-2) Troponin T C-Reactive Protein Total Protein Albumin Cholesterol LDL Cholesterol Direct HDL Cholesterol Free T4 Urine WBC (Auto) Urine Creatinine Urine Total Protein Crossmatch 08/27/18 08/27/18 08/28/18 20:09 21:25 02:03 WBC RBC Hgb Hct MCV MCH MCHC RDW Lymph % (Auto) [place] % (Auto) Eos % (Auto) Lymph # [place] # Eos # Seg Neutrophils % Lymphocytes % (Manual) Seg Neutrophils # Lymphocytes # (Manual) PT INR APTT D-Dimer Heparin Anti-Xa Level POC ABG pH POC ABG pCO2 POC ABG pO2 130 H Sodium Potassium Chloride Carbon Dioxide BUN Creatinine Glucose POC Glucose 226 H 250 H Lactic Acid Calcium Magnesium AST Alkaline Phosphatase Total Creatine Kinase CK-MB (CK-2) Troponin T C-Reactive Protein Total Protein Albumin Cholesterol LDL Cholesterol Direct HDL Cholesterol Free T4 Urine WBC (Auto) Urine Creatinine Urine Total Protein Crossmatch 08/28/18 08/28/18 08/28/18 05:56 07:15 13:17 WBC RBC Hgb Hct MCV MCH MCHC RDW Lymph % (Auto) [facility] % (Auto) Eos % (Auto) Lymph # [facility] # Eos # Seg Neutrophils % Lymphocytes % (Manual) Seg Neutrophils # Lymphocytes # (Manual) PT INR APTT D-Dimer Heparin Anti-Xa Level POC ABG pH POC ABG pCO2 POC ABG pO2 Sodium Potassium Chloride Carbon Dioxide BUN Creatinine Glucose 198 H POC Glucose 221 H 188 H Lactic Acid Calcium 7.7 L Magnesium AST Alkaline Phosphatase Total Creatine Kinase CK-MB (CK-2) Troponin T C-Reactive Protein Total Protein Albumin Cholesterol LDL Cholesterol Direct HDL Cholesterol Free T4 Urine WBC (Auto) Urine Creatinine Urine Total Protein Crossmatch 08/28/18 08/28/18 08/28/18 15:53 18:12 22:35 WBC RBC Hgb Hct MCV MCH MCHC RDW Lymph % (Auto) [facility] % (Auto) Eos % (Auto) Lymph # [facility] # Eos # Seg Neutrophils % Lymphocytes % (Manual) Seg Neutrophils # Lymphocytes # (Manual) PT INR APTT D-Dimer Heparin Anti-Xa Level POC ABG pH 7.457 H POC ABG pCO2 POC ABG pO2 Sodium Potassium Chloride Carbon Dioxide BUN Creatinine Glucose POC Glucose 197 H 225 H Lactic Acid Calcium Magnesium AST Alkaline Phosphatase Total Creatine Kinase CK-MB (CK-2) Troponin T C-Reactive Protein Total Protein Albumin Cholesterol LDL Cholesterol Direct HDL Cholesterol Free T4 Urine WBC (Auto) Urine Creatinine Urine Total Protein Crossmatch 08/29/18 08/29/18 08/29/18 03:04 10:47 14:25 WBC RBC Hgb Hct MCV MCH MCHC RDW Lymph % (Auto) [facility] % (Auto) Eos % (Auto) Lymph # [facility] # Eos # Seg Neutrophils % Lymphocytes % (Manual) Seg Neutrophils # Lymphocytes # (Manual) PT INR APTT D-Dimer Heparin Anti-Xa Level POC ABG pH POC ABG pCO2 POC ABG pO2 Sodium Potassium Chloride Carbon Dioxide BUN Creatinine Glucose POC Glucose 223 H 371 H 266 H Lactic Acid Calcium Magnesium AST Alkaline Phosphatase Total Creatine Kinase CK-MB (CK-2) Troponin T C-Reactive Protein Total Protein Albumin Cholesterol LDL Cholesterol Direct HDL Cholesterol Free T4 Urine WBC (Auto) Urine Creatinine Urine Total Protein Crossmatch 08/29/18 08/29/18 08/29/18 16:45 17:36 21:33 WBC RBC Hgb Hct MCV MCH MCHC RDW Lymph % (Auto) [facility] % (Auto) Eos % (Auto) Lymph # [facility] # Eos # Seg Neutrophils % Lymphocytes % (Manual) Seg Neutrophils # Lymphocytes # (Manual) PT INR APTT D-Dimer Heparin Anti-Xa Level POC ABG pH POC ABG pCO2 POC ABG pO2 118 H Sodium Potassium Chloride Carbon Dioxide BUN Creatinine Glucose POC Glucose 253 H 204 H Lactic Acid Calcium Magnesium AST Alkaline Phosphatase Total Creatine Kinase CK-MB (CK-2) Troponin T C-Reactive Protein Total Protein Albumin Cholesterol LDL Cholesterol Direct HDL Cholesterol Free T4 Urine WBC (Auto) Urine Creatinine Urine Total Protein Crossmatch 08/30/18 08/30/18 08/30/18 01:33 05:27 05:40 WBC RBC 3.12 L Hgb 8.5 L Hct 25.9 L MCV 83 L MCH 27 L MCHC RDW 18.3 H Lymph % (Auto) [facility] % (Auto) 7.8 H Eos % (Auto) 8.8 H Lymph # [facility] # Eos # 0.6 H Seg Neutrophils % Lymphocytes % (Manual) Seg Neutrophils # Lymphocytes # (Manual) PT INR APTT D-Dimer Heparin Anti-Xa Level POC ABG pH POC ABG pCO2 POC ABG pO2 Sodium Potassium Chloride Carbon Dioxide BUN Creatinine Glucose POC Glucose 157 H 178 H Lactic Acid Calcium Magnesium AST Alkaline Phosphatase Total Creatine Kinase CK-MB (CK-2) Troponin T C-Reactive Protein Total Protein Albumin Cholesterol LDL Cholesterol Direct HDL Cholesterol Free T4 Urine WBC (Auto) Urine Creatinine Urine Total Protein Crossmatch 08/30/18 08/30/18 08/30/18 05:40 09:28 11:41 WBC RBC Hgb Hct MCV MCH MCHC RDW Lymph % (Auto) [facility] % (Auto) Eos % (Auto) Lymph # [facility] # Eos # Seg Neutrophils % Lymphocytes % (Manual) Seg Neutrophils # Lymphocytes # (Manual) PT INR APTT D-Dimer Heparin Anti-Xa Level POC ABG pH POC ABG pCO2 POC ABG pO2 Sodium Potassium Chloride Carbon Dioxide BUN Creatinine 0.7 L Glucose 189 H POC Glucose 216 H 257 H Lactic Acid Calcium 8.2 L Magnesium AST 50 H Alkaline Phosphatase 158 H Total Creatine Kinase CK-MB (CK-2) Troponin T C-Reactive Protein Total Protein Albumin 1.6 L Cholesterol LDL Cholesterol Direct HDL Cholesterol Free T4 Urine WBC (Auto) Urine Creatinine Urine Total Protein Crossmatch Chest x-ray: pending Allied health notes reviewed: nursing
[2018-08-30] MEDS: LOVENOX SUB-Q SCH (22:26)
[2018-08-30] MEDS: LANTUS SUB-Q SCH (22:28)
[2018-08-31] MEDS: HumaLOG SUB-Q SCH ×6 (02:11→22:26)
[2018-08-31] MEDS: APRESOLINE PO SCH ×3 (06:03→22:22)
[2018-08-31] MEDS: PROVIGIL PO SCH (09:24)
[2018-08-31] MEDS: PEPCID PO SCH ×2 (09:24→22:22)
[2018-08-31] MEDS: ASPIRIN PO SCH (09:24)
[2018-08-31] MEDS: SODIUM CHLORIDE FLUSH SYRINGE 10 ML IV SCH ×2 (09:24→22:20)
[2018-08-31] MEDS: KEPPRA PO SCH ×2 (09:24→22:21)
--- NOTE | 2018-08-31 10:12 | Progress Note ---
Assessment and Plan Assessment and plan: Cardiopulmonary arrest x 3: Most likely related to mucus plugging >NSTEMI, lead ing to severe irreversible brain damage: supportive care, CCM following. Acute on chronic respiratory failure Trach has been removed when patient was orally intubated, continue ventilator management per pulmonology. Tracheostomy was replaced by surgery on 08/25/18. Tracheostomy care, airway clearance, secretion management Right pneumothorax, resolved. Status post chest tube, mgt per pulmonology Hypoxic encephalopathy: neurology consult appreciated, poor prognosis, poor likelihood of recovery, preserved brain stem function otherwise unresponsive. EEG is suggestive hypoxic encephalopathy. Hypertension. Increase hydralazine 75 mg 3 times a day Hypernatremia, Continue free water via G-tube, sp hypotonic IV solution, monitor bmp closely Acute kidney injury likely due to ATN Nephrology following, continue IV fluid, avoid renal toxic agents NSTEMI: treated with IV heparin, asa, statin, no bblocker due to bradycardia, hypotension, Cardiology is following Severe protein calorie malnutrition: Dietitian consulted, continue tube feedings UTI/sepsis: Continue antibiotics, follow-up urine cultures-->no growth x 48 hours Type 2 dm with persistent hyperglycemia: cont insulins and adjust according, on tube feedings Anemia: s/p transfusion Urinary retention: continue douglass, condom cath DVT prophylaxis; patient is fully anticoagulated on heparin drip Disposition. LTAC referral. The high probability of a clinically significant, sudden or life threatening deterioration of the [neurology and respiratory] system(s) required my full and direct attention, intervention and personal management. The aggregate critical care time was [32] minutes. This time is in addition to time spent performing reported procedures but includes the following: [x] Data Review and interpretation [x] Patient assessment and monitoring of vital signs [x] Documentation [x] Medication orders and management History Interval history: Patient is a 77 yo man from [facility] with a history of respiratory failure, CVA with tracheostomy and Gtube who presented to [facility] ED following cardiac arrest after being found unresponsive at the [facility]. Time down is unknown per records. The patient is on the vent and unresponsive, all history is obtained from the chart. Patient had multiple episodes of arrest/pulselessness. He has been on the vent since then without any improvement. Per ER notes the patient was bagged via tracheostomy which continued to have low tidal volumes and so the patient with orally intubated after which tidal volumes improved. I spoke with and daughter, Felicita and they believe that he aspirated with a mucus plug that caused the cardiopulmonary arrest not NSTEMI.. Initially, he went to [facility] may 05 to june 05, he had fluid on brain and multiple strokes per family and they drained the fluid off the brain. The trach was placed at [facility] and patient went to [facility], x 7 weeks (trach was changed where capped was placed), he was doing well, talking and sitting up. Then he went to [facility], August 03 and his oral care was horrible. The trach care was horrible and not enough suctioning done. Mouth with copious amount of crud. Then on August 12, Friday, he had voice changing and mucus plugging. Followed by respiratory arrest. The NM brain flow scan showed reduced blood flow. Patient had evaluation by neurology who reports patient with intact brainstem function. Hospitalist Physical - Constitutional Vitals: Temp Pulse Resp BP Pulse Ox 99.1 F 83 16 156/72 97 08/31/18 04:00 08/31/18 09:30 08/31/18 09:30 08/31/18 09:30 08/31/18 09:30 General appearance: Present: other (twitching, nonresponsive, intubated) - EENT Eyes: Present: PERRL, EOM intact ENT: hearing intact, clear oral mucosa, dentition normal - Neck Neck: Present: supple, normal ROM - Respiratory Respiratory effort: normal Respiratory: bilateral: CTA - Cardiovascular Rhythm: regular Heart Sounds: Present: S1 & S2. Absent: gallop, rub - Extremities Extremities: no ischemia, No edema, Full ROM - Abdominal General gastrointestinal: soft, non-tender, non-distended, normal bowel sounds - Integumentary Integumentary: Present: clear, warm, dry - Neurologic Neurologic: CNII-XII intact, moves all extremities Results - Labs CBC & Chem 7: 08/30/18 05:40 08/30/18 05:40 Labs: Laboratory Last Values WBC 6.6 K/mm3 (4.5-11.0) 08/30/18 05:40 RBC 3.12 M/mm3 (3.65-5.03) L 08/30/18 05:40 Hgb 8.5 gm/dl (11.8-15.2) L 08/30/18 05:40 Hct 25.9 % (35.5-45.6) L 08/30/18 05:40 MCV 83 fl (84-94) L 08/30/18 05:40 MCH 27 pg (28-32) L 08/30/18 05:40 MCHC 33 % (32-34) 08/30/18 05:40 RDW 18.3 % (13.2-15.2) H 08/30/18 05:40 Plt Count 282 K/mm3 (140-440) 08/30/18 05:40 Lymph % (Auto) 22.4 % (13.4-35.0) 08/30/18 05:40 Randall % (Auto) 7.8 % (0.0-7.3) H 08/30/18 05:40 Eos % (Auto) 8.8 % (0.0-4.3) H 08/30/18 05:40 Baso % (Auto) 0.8 % (0.0-1.8) 08/30/18 05:40 Lymph # 1.5 K/mm3 (1.2-5.4) 08/30/18 05:40 Randall # 0.5 K/mm3 (0.0-0.8) 08/30/18 05:40 Eos # 0.6 K/mm3 (0.0-0.4) H 08/30/18 05:40 Baso # 0.1 K/mm3 (0.0-0.1) 08/30/18 05:40 Add Manual Diff Complete 08/12/18 21:44 Total Counted 100 08/12/18 21:44 Seg Neutrophils % 60.2 % (40.0-70.0) 08/30/18 05:40 Seg Neuts % (Manual) 44.0 % (40.0-70.0) 08/12/18 21:44 0 % 08/12/18 21:44 48.0 % (13.4-35.0) H 08/12/18 21:44 Reactive Lymphs % (Man) 0 % 08/12/18 21:44 2.0 % (0.0-7.3) 08/12/18 21:44 1.0 % (0.0-4.3) 08/12/18 21:44 0 % (0.0-1.8) 08/12/18 21:44 1.0 % 08/12/18 21:44 4.0 % 08/12/18 21:44 0 % 08/12/18 21:44 0 % 08/12/18 21:44 Nucleated RBC % Not Reportable 08/12/18 21:44 Seg Neutrophils # 4.0 K/mm3 (1.8-7.7) 08/30/18 05:40 Seg Neutrophils # Man 6.8 K/mm3 (1.8-7.7) 08/12/18 21:44 Band Neutrophils # 0.0 K/mm3 08/12/18 21:44 7.4 K/mm3 (1.2-5.4) H 08/12/18 21:44 Abs React Lymphs (Man) 0.0 K/mm3 08/12/18 21:44 0.3 K/mm3 (0.0-0.8) 08/12/18 21:44 0.2 K/mm3 (0.0-0.4) 08/12/18 21:44 0.0 K/mm3 (0.0-0.1) 08/12/18 21:44 0.2 K/mm3 08/12/18 21:44 0.6 K/mm3 08/12/18 21:44 0.0 K/mm3 08/12/18 21:44 Blast Cells # 0.0 K/mm3 08/12/18 21:44 WBC Morphology Not Reportable 08/12/18 21:44 Hypersegmented Neuts Not Reportable 08/12/18 21:44 Hyposegmented Neuts Not Reportable 08/12/18 21:44 Hypogranular Neuts Not Reportable 08/12/18 21:44 Not Reportable 08/12/18 21:44 Not Reportable 08/12/18 21:44 Not Reportable 08/12/18 21:44 Not Reportable 08/12/18 21:44 Not Reportable 08/12/18 21:44 Not Reportable 08/12/18 21:44 Consistent w auto 08/12/18 21:44 Not Reportable 08/12/18 21:44 Plt Clumps, EDTA Not Reportable 08/12/18 21:44 Not Reportable 08/12/18 21:44 Not Reportable 08/12/18 21:44 Not Reportable 08/12/18 21:44 Plt Morphology Comment Not Reportable 08/12/18 21:44 RBC Morphology Not Reportable 08/12/18 21:44 Dimorphic RBCs Not Reportable 08/12/18 21:44 Not Reportable 08/12/18 21:44 Not Reportable 08/12/18 21:44 Not Reportable 08/12/18 21:44 Few 08/12/18 21:44 Not Reportable 08/12/18 21:44 Not Reportable 08/12/18 21:44 Not Reportable 08/12/18 21:44 Not Reportable 08/12/18 21:44 Not Reportable 08/12/18 21:44 Not Reportable 08/12/18 21:44 Not Reportable 08/12/18 21:44 Few 08/12/18 21:44 Not Reportable 08/12/18 21:44 Not Reportable 08/12/18 21:44 Not Reportable 08/12/18 21:44 Not Reportable 08/12/18 21:44 Not Reportable 08/12/18 21:44 Not Reportable 08/12/18 21:44 Few 08/12/18 21:44 Acanthocytes (Spur) Not Reportable 08/12/18 21:44 Rouleaux Not Reportable 08/12/18 21:44 Not Reportable 08/12/18 21:44 Not Reportable 08/12/18 21:44 Not Reportable 08/12/18 21:44 Not Reportable 08/12/18 21:44 Hem Pathologist Commnt No 08/12/18 21:44 PT 16.5 Sec. (12.2-14.9) H 08/13/18 00:47 INR 1.25 (0.87-1.13) H 08/13/18 00:47 APTT 79.0 Sec. (24.2-36.6) H* 08/15/18 06:35 2742.50 ng/mlDDU (0-234) H 08/13/18 20:07 Heparin Anti-Xa Level 0.26 U.I./ml (0.3-0.7) L 08/16/18 20:01 POC ABG pH 7.444 (7.35-7.45) 08/29/18 16:45 POC ABG pCO2 41.7 (35-45) 08/29/18 16:45 POC ABG pO2 118 (80-105) H 08/29/18 16:45 POC ABG HCO3 28.6 (22-26 mml/L) 08/29/18 16:45 POC ABG Total CO2 30 (23-27mmol/L) 08/29/18 16:45 POC ABG O2 Sat 99 08/29/18 16:45 POC ABG Base Excess 4 ((-2) - (+3)mmol/L) 08/29/18 16:45 28 % 08/29/18 16:45 Sodium 140 mmol/L (137-145) 08/30/18 05:40 Potassium 4.0 mmol/L (3.6-5.0) 08/30/18 05:40 Chloride 105.5 mmol/L (98-107) 08/30/18 05:40 Carbon Dioxide 29 mmol/L (22-30) 08/30/18 05:40 10 mmol/L 08/30/18 05:40 BUN 19 mg/dL (9-20) 08/30/18 05:40 0.7 mg/dL (0.8-1.5) L 08/30/18 05:40 Estimated GFR > 60 ml/min 08/30/18 05:40 27 % 08/30/18 05:40 Glucose 189 mg/dL (75-100) H 08/30/18 05:40 POC Glucose 107 (70-105) H 08/31/18 09:24 Lactic Acid 2.80 mmol/L (0.7-2.0) H* 08/13/18 12:53 Calcium 8.2 mg/dL (8.4-10.2) L 08/30/18 05:40 Phosphorus 3.90 mg/dL (2.5-4.5) 08/15/18 04:05 Magnesium 2.20 mg/dL (1.7-2.3) 08/15/18 04:05 < 0.20 mg/dL (0.1-1.2) 08/30/18 05:40 AST 50 units/L (5-40) H 08/30/18 05:40 ALT 31 units/L (7-56) 08/30/18 05:40 158 units/L (35-129) H 08/30/18 05:40 309 units/L (55-170) H 08/13/18 10:10 CK-MB (CK-2) 4.1 ng/mL (0.0-4.0) H 08/13/18 10:10 CK-MB (CK-2) Rel Index 1.3 (0-4) 08/13/18 10:10 0.409 ng/mL (0.00-0.029) H* 08/14/18 04:03 16.90 mg/dL (0.00-1.30) H 08/13/18 12:53 6.4 g/dL (6.3-8.2) 08/30/18 05:40 1.6 g/dL (3.9-5) L 08/30/18 05:40 0.3 % 08/30/18 05:40 Triglycerides 62 mg/dL (2-149) 08/13/18 00:32 Cholesterol 46 mg/dL (50-199) L 08/13/18 00:32 17 mg/dL (50-130) L 08/13/18 00:32 6 mg/dL (40-59) L 08/13/18 00:32 7.66 % 08/13/18 00:32 TSH 0.973 mlU/mL (0.270-4.200) 08/26/18 09:00 Free T4 0.51 ng/dL (0.76-1.46) L 08/26/18 09:00 Yellow (Yellow) 08/25/18 12:40 Turbid (Clear) 08/25/18 12:40 7.0 (5.0-7.0) 08/25/18 12:40 Ur Specific [place]ett 1.009 (1.003-1.030) 08/25/18 12:40 100 mg/dl mg/dL (Negative) 08/25/18 12:40 Neg mg/dL (Negative) 08/25/18 12:40 Neg mg/dL (Negative) 08/25/18 12:40 Mod (Negative) 08/25/18 12:40 Neg (Negative) 08/25/18 12:40 Neg (Negative) 08/25/18 12:40 < 2.0 mg/dL (<2.0) 08/25/18 12:40 Ur Leukocyte Esterase Lg (Negative) 08/25/18 12:40 > 182.0 /HPF (0.0-6.0) H 08/25/18 12:40 10.0 /HPF (0.0-6.0) 08/25/18 12:40 U Epithel Cells (Auto) 5.0 /HPF (0-13.0) 08/25/18 12:40 2+ /HPF (Negative) 08/13/18 00:50 3+ /HPF 08/25/18 12:40 None seen (None Seen) 08/14/18 17:20 60.9 mg/dL (0.1-20.0) H 08/14/18 17:20 32 mmol/L 08/14/18 17:20 64 mg/dL (5-11.8) H 08/14/18 17:20 Presumptive negative 08/12/18 21:30 Presumptive negative 08/12/18 21:30 Ur Barbiturates Screen Presumptive negative 08/12/18 21:30 Ur Phencyclidine Scrn Presumptive negative 08/12/18 21:30 Ur Amphetamines Screen Presumptive negative 08/12/18 21:30 U Benzodiazepines Scrn Presumptive negative 08/12/18 21:30 Presumptive negative 08/12/18 21:30 U Marijuana (THC) Screen Presumptive negative 08/12/18 21:30 Disclamer 08/12/18 21:30 Blood Type O POSITIVE 08/15/18 15:31 Antibody Screen Negative 08/15/18 15:31 Crossmatch See Detail 08/15/18 15:31 Active Medications - Current Medications Current Medications: Generic Name Dose Route Start Last Admin Trade Name Freq PRN Reason Stop Dose Admin Acetaminophen 650 mg 08/13/18 11:40 08/13/18 16:09 Tylenol PO 650 mg Q6H PRN Administration Fever >101 Lipase/Protease/Amylase 1 each 08/25/18 18:[address] 10,500 Unit FEEDTUBE PRN PRN For Clogged Feeding Tube Aspirin 325 mg 08/17/18 10:00 08/31/18 09:24 Aspirin PO 325 mg QDAY LENCHO Administration Atorvastatin Calcium 40 mg 08/14/18 22:00 08/30/18 22:27 Lipitor PO 40 mg QHS LENCHO Administration Dextrose 50 ml 08/13/18 01:34 D50w (25gm) Syringe IV PRN PRN Hypoglycemia Enoxaparin Sodium 40 mg 08/17/18 22:00 08/30/18 22:26 Lovenox SUB-Q 40 mg QDAY@2200 LENCHO Administration Famotidine 20 mg 08/19/18 10:00 08/31/18 09:24 Pepcid PO 20 mg BID LENCHO Administration Hydralazine HCl 75 mg 08/29/18 14:00 08/31/18 06:03 Apresoline PO 75 mg Q8HR LENCHO Administration Hydrophilic Ointment 1 applic 08/13/18 12:21 Vaseline Lip Therapy TP Q2HR PRN Dry Lips Insulin Glargine 10 units 08/30/18 22:00 08/30/18 22:28 Lantus SUB-Q 10 units QHS [facility] Administration Insulin Human Lispro 0 unit 08/26/18 10:00 08/31/18 09:20 Humalog SUB-Q Not Given Q4HR [facility] Protocol Levetiracetam 500 mg 08/27/18 22:00 08/31/18 09:24 Keppra PO 500 mg BID [facility] Administration Modafinil 100 mg 08/27/18 10:00 08/31/18 09:24 Provigil PO 100 mg QAM [facility] Administration Multi-Ingred Cream/Lotion/Oil/Oint 1 applic 08/13/18 12:21 08/17/18 00:41 Artificial Tears Ophth Oint OU 1 applic Q4HR PRN Administration Dry Eye(s) Ondansetron HCl 4 mg 08/13/18 01:34 Zofran IV Q8H PRN Nausea And Vomiting Simple Syrup 15 ml 08/25/18 18:36 Simple Syrup FEEDTUBE PRN PRN Hypoglycemia Simple Syrup 30 ml 08/25/18 18:36 Simple Syrup FEEDTUBE PRN PRN Hypoglycemia Sodium Bicarbonate 325 mg 08/25/18 18:36 Sodium Bicarbonate FEEDTUBE PRN PRN For Clogged Feeding Tube Sodium Chloride 10 ml 08/13/18 10:00 08/31/18 09:24 Sodium Chloride Flush Syringe 10 Ml IV 10 ml BID LENCHO Administration Sodium Chloride 10 ml 08/13/18 01:34 08/30/18 22:29 Sodium Chloride Flush Syringe 10 Ml IV 10 ml PRN PRN Administration LINE FLUSH Nutrition/Malnutrition Assess - Dietary Evaluation Nutrition/Malnutrition Findings: Nutrition Notes Start: 08/13/18 15:41 Freq: Status: Active Protocol: Document 08/27/18 09:21 LP (Rec: 08/27/18 09:28 LP [id number]) Nutrition Notes Initial or Follow up Reassessment Current Diagnosis Acute Kidney Injury,Diabetes Other Pertinent Diagnosis UTI, Hx CVA, PEG, Sacral PU, Multiple PU, Anoxic brain injury,R pneumothorax Current Diet Vital 1.2 at 60 ml/hr Labs/Tests Reviewed Pertinent Medications Reviewed Height 5 ft 8 in Weight 78.6 kg [place] Body Weight (kg) 70.00 BMI 26.3 Subjective/Other Information Pt tolerating TF at 40ml/hr so far but had 270ml residual earlier. Percent of energy/protein needs met: 64%/84% Burn Absent Trauma Absent #1 Nutrition Diagnosis Inadequate oral intake Diagnosis Progress(for reassessment Continues documentation) Is patient on ventilator? Yes Is Patient Ambulatory and/or Out of Bed No REE-([facility]-confined to bed) 1783.140 Calculation Used for Recommendations [facility] Additional Notes Protein Needs: 87-145g (1.2-2g /kg) Fluid Needs: 1 ml/kcal Nutrition Intervention Change Diet Order: TF Nutrition Support: Vital 1.2 at 60 ml/hr. Water flush of 250ml q4h for hypernatremia and 100 mls q 4 hrs once resolved. Kcal 1,728 Protein (gm) 108 Fluid (mL) 1,167 Add Supplement/Snack (indicate name/kcal Magen BID /protein ) Provides kCal: 190 Provides Protein (gm) 5 Goal #1 Meet at least 80% of calorie and protein needs via TF Anticipated Discharge Needs: TF Follow-Up By: 08/31/18 Additional Comments Follow for TF tolerance at goal
--- NOTE | 2018-08-31 12:42 | Progress Note ---
Assessment and Plan Acute hypoxemic respiratory failure on chronic. Status post cardiac arrest. Seizure disorder with breakthrough seizures. History of diabetes. History of cerebrovascular accident. Oropharyngeal dysphagia. History of seizures. - discontinue PICC line - get ABG before resting on AC tonight if he lasts that long - continue daily SBT's as tolerated (rest on AC mode qhs for now) - prn ABG's & CXR's at this point - continue Keppra for seizures with prn ativan IV for breakthrough (now dosed at 500mg IV bid) - continue provigil - continue bronchodilators with routine trach care and pulmonary hygiene per RT - neurology evaluation ongoing (pupils reactive sluggishly) - sedation target for RASS 0 to -1 (daily SAT's as tolerated) - continue GI & VTE prophylaxis - continue to wean supplemental oxygen to keep O2 sats 88-90% - Lung protective strategies - VAP bundle addressed - Continue cardioprotective measures - Replete electrolytes as indicated - Continue to rest at night on full MVS - Monitor renal indices closely - Avoid nephrotoxic agents, adjust all medications for CrCL - Strict intake and output monitoring - continue enteral nutrition as tolerated - continue accuchecks with glycemic control per SSI for target glucose of 140- 180 mg/dL (Lantus re-introduced) - Maintenance of sleep -wake cycle modalities - Mobility as tolerated by hemodynamics - Influenza and pneumonia vaccination per protocol - discharge planning ongoing concurrently .... no family in room today PROGNOSIS: GUARDED CONDITION: CRITICAL CODE STATUS: FULL CODE The high probability of a clinically significant, sudden or life-threatening deterioration of the [respiratory, neurology, renal] system(s) required my full and direct attention, intervention and personal management. The aggregate critical care time was [35] minutes without overlap. Time includes spent on; [x] Data Review and interpretation [x] Patient assessment and monitoring of vital signs [x] Documentation [x] Medication orders and management Subjective Date of service: 08/31/18 Principal diagnosis: Acute hypoxemic resp failure; S/P cardiac arrest; Seizures; DM II; H/O CVA Interval history: Patient is seen today for: Acute hypoxemic respiratory failure on chronic; Status post cardiac arrest; Seizure disorder with breakthrough seizures; History of diabetes; History of cerebrovascular accident; Oropharyngeal dysphagia; History of seizures. Seen and examined at bedside; 24hour events reviewed; nursing and respiratory care staff consulted; no adverse overnight events reported to me; remains on MVS; AMS is persistent; tolerating PSV better but still occassional apnea's that kick him back to full support; No emesis or overt aspiration and no seizure activity. Objective Vital Signs - 12hr 08/31/18 08/31/18 08/31/18 01:00 01:30 02:00 Temperature Pulse Rate 79 76 78 Pulse Rate [ From Monitor] Respiratory 17 16 12 Rate Blood Pressure 126/65 133/61 130/67 O2 Sat by Pulse 98 98 99 Oximetry O2 Sat by Pulse Oximetry [ Assessment] 08/31/18 08/31/18 08/31/18 02:30 03:00 03:30 Temperature Pulse Rate 78 80 78 Pulse Rate [ From Monitor] Respiratory 14 17 14 Rate Blood Pressure 123/64 125/65 130/66 O2 Sat by Pulse 100 99 99 Oximetry O2 Sat by Pulse Oximetry [ Assessment] 08/31/18 08/31/18 08/31/18 04:00 04:30 05:01 Temperature 99.1 F Pulse Rate 79 79 78 Pulse Rate [ 76 From Monitor] Respiratory 16 16 14 Rate Blood Pressure 124/66 110/65 124/64 O2 Sat by Pulse 100 99 99 Oximetry O2 Sat by Pulse Oximetry [ Assessment] 08/31/18 08/31/18 08/31/18 05:30 06:00 06:03 Temperature Pulse Rate 80 79 79 Pulse Rate [ From Monitor] Respiratory 15 17 Rate Blood Pressure 132/71 136/71 136/71 O2 Sat by Pulse 99 98 Oximetry O2 Sat by Pulse Oximetry [ Assessment] 08/31/18 08/31/18 08/31/18 06:30 07:00 07:30 Temperature Pulse Rate 78 79 78 Pulse Rate [ From Monitor] Respiratory 17 17 13 Rate Blood Pressure 137/69 136/70 137/69 O2 Sat by Pulse 99 99 98 Oximetry O2 Sat by Pulse Oximetry [ Assessment] 08/31/18 08/31/18 08/31/18 08:00 08:25 08:31 Temperature Pulse Rate 78 80 79 Pulse Rate [ 76 From Monitor] Respiratory 16 13 12 Rate Blood Pressure 149/67 139/72 151/70 O2 Sat by Pulse 100 100 98 Oximetry O2 Sat by Pulse 100 Oximetry [ Assessment] 08/31/18 08/31/18 08/31/18 09:00 09:30 11:26 Temperature Pulse Rate 81 83 79 Pulse Rate [ From Monitor] Respiratory 14 16 18 Rate Blood Pressure 139/72 156/72 140/66 O2 Sat by Pulse 98 97 100 Oximetry O2 Sat by Pulse Oximetry [ Assessment] Constitutional: no acute distress, other (Elderly looking AAM, normocephalic resting in bed on MVS) Eyes: non-icteric ENT: oropharynx moist Neck: supple, no lymphadenopathy, no JVD, other (s/p tracheostomy) Effort: mildly labored Ascultation: Bilateral: diminished breath sounds, rhonchi Percussion: Bilateral: not dull Cardiovascular: regular rate and rhythm Gastrointestinal: normoactive bowel sounds, soft, non-tender, non-distended Integumentary: normal Extremities: no cyanosis, pulses normal, no ischemia or petechiae, edema (trace ) Neurologic: unable to assess, other (slight pupillary constriction to light) Psychiatric: other (unable to assess) CBC and BMP: 09/01/18 05:19 09/01/18 05:19 ABG, PT/INR, D-dimer: ABG POC ABG pH 7.444 (7.35-7.45) 08/29/18 16:45 POC ABG pCO2 41.7 (35-45) 08/29/18 16:45 POC ABG pO2 118 (80-105) H 08/29/18 16:45 POC ABG HCO3 28.6 (22-26 mml/L) 08/29/18 16:45 POC ABG Total CO2 30 (23-27mmol/L) 08/29/18 16:45 POC ABG O2 Sat 99 08/29/18 16:45 PT/INR, D-dimer PT 16.5 Sec. (12.2-14.9) H 08/13/18 00:47 INR 1.25 (0.87-1.13) H 08/13/18 00:47 2742.50 ng/mlDDU (0-234) H 08/13/18 20:07 Abnormal lab findings: Abnormal Labs 08/12/18 08/12/18 08/12/18 21:44 21:44 21:44 WBC 15.5 H RBC 3.12 L Hgb 8.8 L Hct 28.9 L MCV MCH MCHC 31 L RDW 19.5 H Lymph % (Auto) [place] % (Auto) Eos % (Auto) Lymph # [place] # Eos # Seg Neutrophils % Lymphocytes % (Manual) 48.0 H Seg Neutrophils # Lymphocytes # (Manual) 7.4 H PT 17.8 H INR 1.37 H APTT D-Dimer Heparin Anti-Xa Level POC ABG pH POC ABG pCO2 POC ABG pO2 Sodium 159 H Potassium Chloride 118.5 H Carbon Dioxide BUN 34 H Creatinine Glucose 161 H POC Glucose Lactic Acid Calcium Magnesium AST Alkaline Phosphatase Total Creatine Kinase CK-MB (CK-2) Troponin T 0.105 H* C-Reactive Protein Total Protein Albumin Cholesterol LDL Cholesterol Direct HDL Cholesterol Free T4 Urine WBC (Auto) Urine Creatinine Urine Total Protein Crossmatch 08/13/18 08/13/18 08/13/18 00:32 00:47 00:47 WBC RBC Hgb 9.2 L Hct 29.6 L MCV MCH MCHC RDW Lymph % (Auto) [place] % (Auto) Eos % (Auto) Lymph # [place] # Eos # Seg Neutrophils % Lymphocytes % (Manual) Seg Neutrophils # Lymphocytes # (Manual) PT 16.5 H INR 1.25 H APTT 37.3 H D-Dimer Heparin Anti-Xa Level POC ABG pH POC ABG pCO2 POC ABG pO2 Sodium Potassium Chloride Carbon Dioxide BUN Creatinine Glucose POC Glucose Lactic Acid Calcium Magnesium AST Alkaline Phosphatase Total Creatine Kinase 211 H CK-MB (CK-2) 7.7 H Troponin T 0.169 H* D C-Reactive Protein Total Protein Albumin Cholesterol 46 L LDL Cholesterol Direct 17 L HDL Cholesterol 6 L Free T4 Urine WBC (Auto) Urine Creatinine Urine Total Protein Crossmatch 08/13/18 08/13/18 08/13/18 00:50 02:25 05:34 WBC RBC Hgb Hct MCV MCH MCHC RDW Lymph % (Auto) [place] % (Auto) Eos % (Auto) Lymph # [place] # Eos # Seg Neutrophils % Lymphocytes % (Manual) Seg Neutrophils # Lymphocytes # (Manual) PT INR APTT D-Dimer Heparin Anti-Xa Level POC ABG pH 7.503 H POC ABG pCO2 POC ABG pO2 253 H Sodium Potassium Chloride Carbon Dioxide BUN Creatinine Glucose POC Glucose Lactic Acid Calcium Magnesium AST Alkaline Phosphatase Total Creatine Kinase 311 H CK-MB (CK-2) 10.4 H Troponin T 0.283 H* D C-Reactive Protein Total Protein Albumin Cholesterol LDL Cholesterol Direct HDL Cholesterol Free T4 Urine WBC (Auto) > 182.0 H Urine Creatinine Urine Total Protein Crossmatch 08/13/18 08/13/18 08/13/18 06:35 10:10 10:10 WBC RBC Hgb Hct MCV MCH MCHC RDW Lymph % (Auto) [place] % (Auto) Eos % (Auto) Lymph # [place] # Eos # Seg Neutrophils % Lymphocytes % (Manual) Seg Neutrophils # Lymphocytes # (Manual) PT INR APTT D-Dimer Heparin Anti-Xa Level POC ABG pH 7.554 H POC ABG pCO2 33.5 L POC ABG pO2 220 H Sodium 158 H Potassium Chloride 117.1 H Carbon Dioxide BUN 53 H Creatinine 2.0 H Glucose 247 H POC Glucose Lactic Acid Calcium 8.2 L Magnesium AST Alkaline Phosphatase Total Creatine Kinase 309 H CK-MB (CK-2) 4.1 H Troponin T 0.470 H* D C-Reactive Protein Total Protein Albumin Cholesterol LDL Cholesterol Direct HDL Cholesterol Free T4 Urine WBC (Auto) Urine Creatinine Urine Total Protein Crossmatch 08/13/18 08/13/18 08/13/18 12:53 12:53 17:55 WBC RBC Hgb Hct MCV MCH MCHC RDW Lymph % (Auto) [place] % (Auto) Eos % (Auto) Lymph # [place] # Eos # Seg Neutrophils % Lymphocytes % (Manual) Seg Neutrophils # Lymphocytes # (Manual) PT INR APTT D-Dimer Heparin Anti-Xa Level POC ABG pH POC ABG pCO2 POC ABG pO2 Sodium Potassium Chloride Carbon Dioxide BUN Creatinine Glucose POC Glucose 308 H Lactic Acid 2.80 H* Calcium Magnesium 2.50 H AST Alkaline Phosphatase Total Creatine Kinase CK-MB (CK-2) Troponin T C-Reactive Protein 16.90 H Total Protein Albumin Cholesterol LDL Cholesterol Direct HDL Cholesterol Free T4 Urine WBC (Auto) Urine Creatinine Urine Total Protein Crossmatch 08/13/18 08/13/18 08/13/18 20:07 21:16 23:17 WBC RBC Hgb Hct MCV MCH MCHC RDW Lymph % (Auto) [place] % (Auto) Eos % (Auto) Lymph # [place] # Eos # Seg Neutrophils % Lymphocytes % (Manual) Seg Neutrophils # Lymphocytes # (Manual) PT INR APTT D-Dimer 2742.50 H Heparin Anti-Xa Level POC ABG pH 7.483 H POC ABG pCO2 30.8 L POC ABG pO2 150 H Sodium Potassium Chloride Carbon Dioxide BUN Creatinine Glucose POC Glucose 245 H Lactic Acid Calcium Magnesium AST Alkaline Phosphatase Total Creatine Kinase CK-MB (CK-2) Troponin T C-Reactive Protein Total Protein Albumin Cholesterol LDL Cholesterol Direct HDL Cholesterol Free T4 Urine WBC (Auto) Urine Creatinine Urine Total Protein Crossmatch 08/14/18 08/14/18 08/14/18 04:03 04:03 04:56 WBC 18.2 H RBC 2.62 L Hgb 7.3 L Hct 24.5 L MCV MCH MCHC RDW 18.9 H Lymph % (Auto) [place] % (Auto) Eos % (Auto) Lymph # [place] # 1.2 H Eos # Seg Neutrophils % 79.4 H Lymphocytes % (Manual) Seg Neutrophils # 14.5 H Lymphocytes # (Manual) PT INR APTT D-Dimer Heparin Anti-Xa Level POC ABG pH POC ABG pCO2 33.5 L POC ABG pO2 153 H Sodium 152 H Potassium 3.4 L Chloride 113.8 H Carbon Dioxide BUN 72 H Creatinine 2.7 H Glucose 239 H POC Glucose Lactic Acid Calcium 7.6 L Magnesium AST 50 H Alkaline Phosphatase 219 H Total Creatine Kinase CK-MB (CK-2) Troponin T 0.409 H* C-Reactive Protein Total Protein 6.2 L Albumin 1.9 L Cholesterol LDL Cholesterol Direct HDL Cholesterol Free T4 Urine WBC (Auto) Urine Creatinine Urine Total Protein Crossmatch 08/14/18 08/14/18 08/14/18 05:18 13:38 15:35 WBC RBC Hgb Hct MCV MCH MCHC RDW Lymph % (Auto) [place] % (Auto) Eos % (Auto) Lymph # [place] # Eos # Seg Neutrophils % Lymphocytes % (Manual) Seg Neutrophils # Lymphocytes # (Manual) PT INR APTT D-Dimer Heparin Anti-Xa Level POC ABG pH POC ABG pCO2 POC ABG pO2 Sodium 150 H Potassium 3.2 L Chloride 114.5 H Carbon Dioxide BUN 69 H Creatinine 2.3 H Glucose 247 H POC Glucose 242 H 296 H Lactic Acid Calcium 7.2 L Magnesium AST Alkaline Phosphatase Total Creatine Kinase CK-MB (CK-2) Troponin T C-Reactive Protein Total Protein Albumin Cholesterol LDL Cholesterol Direct HDL Cholesterol Free T4 Urine WBC (Auto) Urine Creatinine Urine Total Protein Crossmatch 08/14/18 08/14/18 08/14/18 17:01 17:20 23:47 WBC RBC Hgb Hct MCV MCH MCHC RDW Lymph % (Auto) [place] % (Auto) Eos % (Auto) Lymph # [place] # Eos # Seg Neutrophils % Lymphocytes % (Manual) Seg Neutrophils # Lymphocytes # (Manual) PT INR APTT D-Dimer Heparin Anti-Xa Level POC ABG pH POC ABG pCO2 POC ABG pO2 Sodium Potassium Chloride Carbon Dioxide BUN Creatinine Glucose POC Glucose 261 H 280 H Lactic Acid Calcium Magnesium AST Alkaline Phosphatase Total Creatine Kinase CK-MB (CK-2) Troponin T C-Reactive Protein Total Protein Albumin Cholesterol LDL Cholesterol Direct HDL Cholesterol Free T4 Urine WBC (Auto) Urine Creatinine 60.9 H Urine Total Protein 64 H Crossmatch 08/15/18 08/15/18 08/15/18 04:05 04:05 04:05 WBC RBC Hgb 6.3 L Hct 19.7 L* MCV MCH MCHC RDW Lymph % (Auto) [place] % (Auto) Eos % (Auto) Lymph # [place] # Eos # Seg Neutrophils % Lymphocytes % (Manual) Seg Neutrophils # Lymphocytes # (Manual) PT INR APTT D-Dimer Heparin Anti-Xa Level 0.17 L POC ABG pH POC ABG pCO2 POC ABG pO2 Sodium 146 H Potassium 3.0 L Chloride 110.6 H Carbon Dioxide BUN 64 H Creatinine 2.2 H Glucose 231 H POC Glucose Lactic Acid Calcium 7.1 L Magnesium AST Alkaline Phosphatase Total Creatine Kinase CK-MB (CK-2) Troponin T C-Reactive Protein Total Protein Albumin Cholesterol LDL Cholesterol Direct HDL Cholesterol Free T4 Urine WBC (Auto) Urine Creatinine Urine Total Protein Crossmatch 08/15/18 08/15/18 08/15/18 05:21 05:26 06:35 WBC RBC Hgb Hct MCV MCH MCHC RDW Lymph % (Auto) [place] % (Auto) Eos % (Auto) Lymph # [place] # Eos # Seg Neutrophils % Lymphocytes % (Manual) Seg Neutrophils # Lymphocytes # (Manual) PT INR APTT 79.0 H* D-Dimer Heparin Anti-Xa Level POC ABG pH 7.494 H POC ABG pCO2 POC ABG pO2 155 H Sodium Potassium Chloride Carbon Dioxide BUN Creatinine Glucose POC Glucose 271 H Lactic Acid Calcium Magnesium AST Alkaline Phosphatase Total Creatine Kinase CK-MB (CK-2) Troponin T C-Reactive Protein Total Protein Albumin Cholesterol LDL Cholesterol Direct HDL Cholesterol Free T4 Urine WBC (Auto) Urine Creatinine Urine Total Protein Crossmatch 08/15/18 08/15/18 08/15/18 12:10 15:31 17:27 WBC RBC Hgb Hct MCV MCH MCHC RDW Lymph % (Auto) [place] % (Auto) Eos % (Auto) Lymph # [place] # Eos # Seg Neutrophils % Lymphocytes % (Manual) Seg Neutrophils # Lymphocytes # (Manual) PT INR APTT D-Dimer Heparin Anti-Xa Level POC ABG pH POC ABG pCO2 POC ABG pO2 Sodium Potassium Chloride Carbon Dioxide BUN Creatinine Glucose POC Glucose 301 H 287 H Lactic Acid Calcium Magnesium AST Alkaline Phosphatase Total Creatine Kinase CK-MB (CK-2) Troponin T C-Reactive Protein Total Protein Albumin Cholesterol LDL Cholesterol Direct HDL Cholesterol Free T4 Urine WBC (Auto) Urine Creatinine Urine Total Protein Crossmatch See Detail 08/15/18 08/15/18 08/16/18 21:41 23:45 04:13 WBC RBC Hgb Hct MCV MCH MCHC RDW Lymph % (Auto) [place] % (Auto) Eos % (Auto) Lymph # [place] # Eos # Seg Neutrophils % Lymphocytes % (Manual) Seg Neutrophils # Lymphocytes # (Manual) PT INR APTT D-Dimer Heparin Anti-Xa Level 0.19 L POC ABG pH POC ABG pCO2 32.1 L POC ABG pO2 107 H Sodium Potassium Chloride Carbon Dioxide BUN Creatinine Glucose POC Glucose 163 H Lactic Acid Calcium Magnesium AST Alkaline Phosphatase Total Creatine Kinase CK-MB (CK-2) Troponin T C-Reactive Protein Total Protein Albumin Cholesterol LDL Cholesterol Direct HDL Cholesterol Free T4 Urine WBC (Auto) Urine Creatinine Urine Total Protein Crossmatch 08/16/18 08/16/18 08/16/18 04:50 05:28 11:30 WBC RBC 2.67 L Hgb 8.1 L Hct 23.4 L MCV MCH MCHC 35 H RDW 18.3 H Lymph % (Auto) [place] % (Auto) Eos % (Auto) Lymph # [place] # Eos # Seg Neutrophils % Lymphocytes % (Manual) Seg Neutrophils # Lymphocytes # (Manual) PT INR APTT D-Dimer Heparin Anti-Xa Level 0.19 L POC ABG pH POC ABG pCO2 POC ABG pO2 Sodium Potassium Chloride Carbon Dioxide BUN Creatinine Glucose POC Glucose 141 H Lactic Acid Calcium Magnesium AST Alkaline Phosphatase Total Creatine Kinase CK-MB (CK-2) Troponin T C-Reactive Protein Total Protein Albumin Cholesterol LDL Cholesterol Direct HDL Cholesterol Free T4 Urine WBC (Auto) Urine Creatinine Urine Total Protein Crossmatch 08/16/18 08/16/18 08/16/18 11:30 12:00 12:01 WBC RBC Hgb Hct MCV MCH MCHC RDW Lymph % (Auto) [place] % (Auto) Eos % (Auto) Lymph # [place] # Eos # Seg Neutrophils % Lymphocytes % (Manual) Seg Neutrophils # Lymphocytes # (Manual) PT INR APTT D-Dimer Heparin Anti-Xa Level 0.15 L POC ABG pH POC ABG pCO2 POC ABG pO2 Sodium Potassium Chloride 107.8 H Carbon Dioxide 21 L BUN 47 H Creatinine 1.6 H Glucose 221 H POC Glucose 267 H Lactic Acid Calcium 6.9 L Magnesium AST Alkaline Phosphatase Total Creatine Kinase CK-MB (CK-2) Troponin T C-Reactive Protein Total Protein Albumin Cholesterol LDL Cholesterol Direct HDL Cholesterol Free T4 Urine WBC (Auto) Urine Creatinine Urine Total Protein Crossmatch 08/16/18 08/16/18 08/16/18 17:23 20:01 23:13 WBC RBC Hgb Hct MCV MCH MCHC RDW Lymph % (Auto) [place] % (Auto) Eos % (Auto) Lymph # [place] # Eos # Seg Neutrophils % Lymphocytes % (Manual) Seg Neutrophils # Lymphocytes # (Manual) PT INR APTT D-Dimer Heparin Anti-Xa Level 0.26 L POC ABG pH POC ABG pCO2 POC ABG pO2 Sodium Potassium Chloride Carbon Dioxide BUN Creatinine Glucose POC Glucose 245 H 256 H Lactic Acid Calcium Magnesium AST Alkaline Phosphatase Total Creatine Kinase CK-MB (CK-2) Troponin T C-Reactive Protein Total Protein Albumin Cholesterol LDL Cholesterol Direct HDL Cholesterol Free T4 Urine WBC (Auto) Urine Creatinine Urine Total Protein Crossmatch 08/17/18 08/17/18 08/17/18 04:29 04:55 05:34 WBC RBC Hgb 8.2 L Hct 24.3 L MCV MCH MCHC RDW Lymph % (Auto) [place] % (Auto) Eos % (Auto) Lymph # [place] # Eos # Seg Neutrophils % Lymphocytes % (Manual) Seg Neutrophils # Lymphocytes # (Manual) PT INR APTT D-Dimer Heparin Anti-Xa Level POC ABG pH POC ABG pCO2 32.4 L POC ABG pO2 108 H Sodium Potassium Chloride Carbon Dioxide BUN Creatinine Glucose POC Glucose 268 H Lactic Acid Calcium Magnesium AST Alkaline Phosphatase Total Creatine Kinase CK-MB (CK-2) Troponin T C-Reactive Protein Total Protein Albumin Cholesterol LDL Cholesterol Direct HDL Cholesterol Free T4 Urine WBC (Auto) Urine Creatinine Urine Total Protein Crossmatch 08/17/18 08/17/18 08/17/18 11:54 13:44 17:24 WBC RBC Hgb Hct MCV MCH MCHC RDW Lymph % (Auto) [place] % (Auto) Eos % (Auto) Lymph # [place] # Eos # Seg Neutrophils % Lymphocytes % (Manual) Seg Neutrophils # Lymphocytes # (Manual) PT INR APTT D-Dimer Heparin Anti-Xa Level POC ABG pH POC ABG pCO2 32.7 L POC ABG pO2 142 H Sodium Potassium Chloride Carbon Dioxide BUN Creatinine Glucose POC Glucose 295 H 283 H Lactic Acid Calcium Magnesium AST Alkaline Phosphatase Total Creatine Kinase CK-MB (CK-2) Troponin T C-Reactive Protein Total Protein Albumin Cholesterol LDL Cholesterol Direct HDL Cholesterol Free T4 Urine WBC (Auto) Urine Creatinine Urine Total Protein Crossmatch 08/18/18 08/18/18 08/18/18 00:05 00:59 04:15 WBC RBC Hgb Hct MCV MCH MCHC RDW Lymph % (Auto) [place] % (Auto) Eos % (Auto) Lymph # [place] # Eos # Seg Neutrophils % Lymphocytes % (Manual) Seg Neutrophils # Lymphocytes # (Manual) PT INR APTT D-Dimer Heparin Anti-Xa Level POC ABG pH POC ABG pCO2 POC ABG pO2 115 H Sodium Potassium Chloride Carbon Dioxide BUN Creatinine Glucose POC Glucose 247 H 251 H Lactic Acid Calcium Magnesium AST Alkaline Phosphatase Total Creatine Kinase CK-MB (CK-2) Troponin T C-Reactive Protein Total Protein Albumin Cholesterol LDL Cholesterol Direct HDL Cholesterol Free T4 Urine WBC (Auto) Urine Creatinine Urine Total Protein Crossmatch 08/18/18 08/18/18 08/18/18 05:02 12:20 17:51 WBC RBC Hgb Hct MCV MCH MCHC RDW Lymph % (Auto) [place] % (Auto) Eos % (Auto) Lymph # [place] # Eos # Seg Neutrophils % Lymphocytes % (Manual) Seg Neutrophils # Lymphocytes # (Manual) PT INR APTT D-Dimer Heparin Anti-Xa Level POC ABG pH POC ABG pCO2 POC ABG pO2 Sodium Potassium Chloride Carbon Dioxide BUN Creatinine Glucose POC Glucose 282 H 209 H 261 H Lactic Acid Calcium Magnesium AST Alkaline Phosphatase Total Creatine Kinase CK-MB (CK-2) Troponin T C-Reactive Protein Total Protein Albumin Cholesterol LDL Cholesterol Direct HDL Cholesterol Free T4 Urine WBC (Auto) Urine Creatinine Urine Total Protein Crossmatch 05/21/19 05/22/19 05/22/19 23:30 04:54 05:16 WBC RBC 2.62 L Hgb 7.5 L Hct 23.1 L MCV MCH MCHC RDW 18.1 H Lymph % (Auto) [place] % (Auto) Eos % (Auto) Lymph # [place] # Eos # Seg Neutrophils % Lymphocytes % (Manual) Seg Neutrophils # Lymphocytes # (Manual) PT INR APTT D-Dimer Heparin Anti-Xa Level POC ABG pH POC ABG pCO2 POC ABG pO2 58 L Sodium Potassium Chloride Carbon Dioxide BUN Creatinine Glucose POC Glucose 231 H Lactic Acid Calcium Magnesium AST Alkaline Phosphatase Total Creatine Kinase CK-MB (CK-2) Troponin T C-Reactive Protein Total Protein Albumin Cholesterol LDL Cholesterol Direct HDL Cholesterol Free T4 Urine WBC (Auto) Urine Creatinine Urine Total Protein Crossmatch 08/19/18 08/19/18 08/19/18 05:16 05:40 11:56 WBC RBC Hgb Hct MCV MCH MCHC RDW Lymph % (Auto) [place] % (Auto) Eos % (Auto) Lymph # [place] # Eos # Seg Neutrophils % Lymphocytes % (Manual) Seg Neutrophils # Lymphocytes # (Manual) PT INR APTT D-Dimer Heparin Anti-Xa Level POC ABG pH POC ABG pCO2 POC ABG pO2 Sodium 152 H D Potassium Chloride 118.7 H Carbon Dioxide BUN 38 H Creatinine Glucose 220 H POC Glucose 227 H 213 H Lactic Acid Calcium 8.1 L D Magnesium AST Alkaline Phosphatase Total Creatine Kinase CK-MB (CK-2) Troponin T C-Reactive Protein Total Protein Albumin Cholesterol LDL Cholesterol Direct HDL Cholesterol Free T4 Urine WBC (Auto) Urine Creatinine Urine Total Protein Crossmatch 08/19/18 08/19/18 08/20/18 18:37 23:32 04:38 WBC RBC Hgb Hct MCV MCH MCHC RDW Lymph % (Auto) [place] % (Auto) Eos % (Auto) Lymph # [place] # Eos # Seg Neutrophils % Lymphocytes % (Manual) Seg Neutrophils # Lymphocytes # (Manual) PT INR APTT D-Dimer Heparin Anti-Xa Level POC ABG pH POC ABG pCO2 POC ABG pO2 140 H Sodium Potassium Chloride Carbon Dioxide BUN Creatinine Glucose POC Glucose 227 H 245 H Lactic Acid Calcium Magnesium AST Alkaline Phosphatase Total Creatine Kinase CK-MB (CK-2) Troponin T C-Reactive Protein Total Protein Albumin Cholesterol LDL Cholesterol Direct HDL Cholesterol Free T4 Urine WBC (Auto) Urine Creatinine Urine Total Protein Crossmatch 08/20/18 08/20/18 08/20/18 05:31 05:37 05:37 WBC RBC 2.60 L Hgb 7.5 L Hct 22.9 L MCV MCH MCHC RDW 18.4 H Lymph % (Auto) [place] % (Auto) Eos % (Auto) Lymph # [place] # Eos # Seg Neutrophils % Lymphocytes % (Manual) Seg Neutrophils # Lymphocytes # (Manual) PT INR APTT D-Dimer Heparin Anti-Xa Level POC ABG pH POC ABG pCO2 POC ABG pO2 Sodium 150 H Potassium Chloride 115.6 H Carbon Dioxide BUN 38 H Creatinine Glucose 276 H POC Glucose 266 H Lactic Acid Calcium 7.9 L Magnesium AST Alkaline Phosphatase Total Creatine Kinase CK-MB (CK-2) Troponin T C-Reactive Protein Total Protein Albumin Cholesterol LDL Cholesterol Direct HDL Cholesterol Free T4 Urine WBC (Auto) Urine Creatinine Urine Total Protein Crossmatch 08/20/18 08/20/18 08/20/18 14:01 18:20 23:11 WBC RBC Hgb Hct MCV MCH MCHC RDW Lymph % (Auto) [place] % (Auto) Eos % (Auto) Lymph # [place] # Eos # Seg Neutrophils % Lymphocytes % (Manual) Seg Neutrophils # Lymphocytes # (Manual) PT INR APTT D-Dimer Heparin Anti-Xa Level POC ABG pH POC ABG pCO2 POC ABG pO2 Sodium Potassium Chloride Carbon Dioxide BUN Creatinine Glucose POC Glucose 305 H 271 H 218 H Lactic Acid Calcium Magnesium AST Alkaline Phosphatase Total Creatine Kinase CK-MB (CK-2) Troponin T C-Reactive Protein Total Protein Albumin Cholesterol LDL Cholesterol Direct HDL Cholesterol Free T4 Urine WBC (Auto) Urine Creatinine Urine Total Protein Crossmatch 08/21/18 08/21/18 08/21/18 04:41 04:41 06:20 WBC RBC 2.65 L Hgb 7.6 L Hct 23.3 L MCV MCH MCHC RDW 19.1 H Lymph % (Auto) [place] % (Auto) Eos % (Auto) Lymph # [place] # Eos # Seg Neutrophils % Lymphocytes % (Manual) Seg Neutrophils # Lymphocytes # (Manual) PT INR APTT D-Dimer Heparin Anti-Xa Level POC ABG pH POC ABG pCO2 POC ABG pO2 Sodium 150 H Potassium Chloride 117.8 H Carbon Dioxide BUN 37 H Creatinine Glucose 233 H POC Glucose 262 H Lactic Acid Calcium 7.9 L Magnesium AST Alkaline Phosphatase Total Creatine Kinase CK-MB (CK-2) Troponin T C-Reactive Protein Total Protein Albumin Cholesterol LDL Cholesterol Direct HDL Cholesterol Free T4 Urine WBC (Auto) Urine Creatinine Urine Total Protein Crossmatch 08/21/18 08/21/18 08/21/18 10:18 12:04 12:36 WBC RBC Hgb Hct MCV MCH MCHC RDW Lymph % (Auto) [place] % (Auto) Eos % (Auto) Lymph # [place] # Eos # Seg Neutrophils % Lymphocytes % (Manual) Seg Neutrophils # Lymphocytes # (Manual) PT INR APTT D-Dimer Heparin Anti-Xa Level POC ABG pH POC ABG pCO2 POC ABG pO2 Sodium Potassium Chloride Carbon Dioxide BUN Creatinine Glucose POC Glucose 256 H 245 H 255 H Lactic Acid Calcium Magnesium AST Alkaline Phosphatase Total Creatine Kinase CK-MB (CK-2) Troponin T C-Reactive Protein Total Protein Albumin Cholesterol LDL Cholesterol Direct HDL Cholesterol Free T4 Urine WBC (Auto) Urine Creatinine Urine Total Protein Crossmatch 08/21/18 08/21/18 08/22/18 17:36 23:29 05:01 WBC RBC Hgb Hct MCV MCH MCHC RDW Lymph % (Auto) [place] % (Auto) Eos % (Auto) Lymph # [place] # Eos # Seg Neutrophils % Lymphocytes % (Manual) Seg Neutrophils # Lymphocytes # (Manual) PT INR APTT D-Dimer Heparin Anti-Xa Level POC ABG pH 7.466 H POC ABG pCO2 33.8 L POC ABG pO2 111 H Sodium Potassium Chloride Carbon Dioxide BUN Creatinine Glucose POC Glucose 263 H 268 H Lactic Acid Calcium Magnesium AST Alkaline Phosphatase Total Creatine Kinase CK-MB (CK-2) Troponin T C-Reactive Protein Total Protein Albumin Cholesterol LDL Cholesterol Direct HDL Cholesterol Free T4 Urine WBC (Auto) Urine Creatinine Urine Total Protein Crossmatch 08/22/18 08/22/18 08/22/18 05:05 12:05 12:15 WBC RBC Hgb Hct MCV MCH MCHC RDW Lymph % (Auto) [place] % (Auto) Eos % (Auto) Lymph # [place] # Eos # Seg Neutrophils % Lymphocytes % (Manual) Seg Neutrophils # Lymphocytes # (Manual) PT INR APTT D-Dimer Heparin Anti-Xa Level POC ABG pH POC ABG pCO2 POC ABG pO2 Sodium 147 H Potassium Chloride 113.2 H Carbon Dioxide BUN 36 H Creatinine Glucose 249 H POC Glucose 256 H 228 H Lactic Acid Calcium 8.2 L Magnesium AST Alkaline Phosphatase Total Creatine Kinase CK-MB (CK-2) Troponin T C-Reactive Protein Total Protein Albumin Cholesterol LDL Cholesterol Direct HDL Cholesterol Free T4 Urine WBC (Auto) Urine Creatinine Urine Total Protein Crossmatch 08/22/18 08/23/18 08/23/18 17:30 00:03 05:05 WBC RBC Hgb Hct MCV MCH MCHC RDW Lymph % (Auto) [place] % (Auto) Eos % (Auto) Lymph # [place] # Eos # Seg Neutrophils % Lymphocytes % (Manual) Seg Neutrophils # Lymphocytes # (Manual) PT INR APTT D-Dimer Heparin Anti-Xa Level POC ABG pH POC ABG pCO2 POC ABG pO2 Sodium Potassium Chloride Carbon Dioxide BUN Creatinine Glucose POC Glucose 291 H 259 H 247 H Lactic Acid Calcium Magnesium AST Alkaline Phosphatase Total Creatine Kinase CK-MB (CK-2) Troponin T C-Reactive Protein Total Protein Albumin Cholesterol LDL Cholesterol Direct HDL Cholesterol Free T4 Urine WBC (Auto) Urine Creatinine Urine Total Protein Crossmatch 08/23/18 08/23/18 08/23/18 05:14 12:29 17:21 WBC RBC Hgb Hct MCV MCH MCHC RDW Lymph % (Auto) [place] % (Auto) Eos % (Auto) Lymph # [place] # Eos # Seg Neutrophils % Lymphocytes % (Manual) Seg Neutrophils # Lymphocytes # (Manual) PT INR APTT D-Dimer Heparin Anti-Xa Level POC ABG pH POC ABG pCO2 POC ABG pO2 Sodium Potassium Chloride Carbon Dioxide BUN Creatinine Glucose POC Glucose 208 H 138 H 175 H Lactic Acid Calcium Magnesium AST Alkaline Phosphatase Total Creatine Kinase CK-MB (CK-2) Troponin T C-Reactive Protein Total Protein Albumin Cholesterol LDL Cholesterol Direct HDL Cholesterol Free T4 Urine WBC (Auto) Urine Creatinine Urine Total Protein Crossmatch 08/23/18 08/24/18 08/24/18 23:36 01:00 05:50 WBC RBC 2.92 L 2.90 L Hgb 8.3 L 8.2 L Hct 25.4 L 25.2 L MCV MCH MCHC RDW 18.9 H 18.6 H Lymph % (Auto) [place] % (Auto) 9.2 H Eos % (Auto) Lymph # [place] # Eos # Seg Neutrophils % Lymphocytes % (Manual) Seg Neutrophils # Lymphocytes # (Manual) PT INR APTT D-Dimer Heparin Anti-Xa Level POC ABG pH POC ABG pCO2 POC ABG pO2 Sodium Potassium Chloride Carbon Dioxide BUN Creatinine Glucose POC Glucose 163 H Lactic Acid Calcium Magnesium AST Alkaline Phosphatase Total Creatine Kinase CK-MB (CK-2) Troponin T C-Reactive Protein Total Protein Albumin Cholesterol LDL Cholesterol Direct HDL Cholesterol Free T4 Urine WBC (Auto) Urine Creatinine Urine Total Protein Crossmatch 08/24/18 08/24/18 08/24/18 05:50 12:26 18:37 WBC RBC Hgb Hct MCV MCH MCHC RDW Lymph % (Auto) [place] % (Auto) Eos % (Auto) Lymph # [place] # Eos # Seg Neutrophils % Lymphocytes % (Manual) Seg Neutrophils # Lymphocytes # (Manual) PT INR APTT D-Dimer Heparin Anti-Xa Level POC ABG pH POC ABG pCO2 POC ABG pO2 Sodium 147 H Potassium Chloride 113.6 H Carbon Dioxide BUN 33 H Creatinine Glucose 210 H POC Glucose 223 H 166 H Lactic Acid Calcium 8.3 L Magnesium AST Alkaline Phosphatase Total Creatine Kinase CK-MB (CK-2) Troponin T C-Reactive Protein Total Protein Albumin Cholesterol LDL Cholesterol Direct HDL Cholesterol Free T4 Urine WBC (Auto) Urine Creatinine Urine Total Protein Crossmatch 08/24/18 08/25/18 08/25/18 23:47 04:55 04:55 WBC RBC 2.94 L Hgb 8.4 L Hct 25.1 L MCV MCH MCHC RDW 18.2 H Lymph % (Auto) [place] % (Auto) Eos % (Auto) Lymph # [place] # Eos # Seg Neutrophils % Lymphocytes % (Manual) Seg Neutrophils # Lymphocytes # (Manual) PT INR APTT D-Dimer Heparin Anti-Xa Level POC ABG pH POC ABG pCO2 POC ABG pO2 Sodium Potassium Chloride 110.2 H Carbon Dioxide BUN 30 H Creatinine Glucose POC Glucose 126 H Lactic Acid Calcium 8.1 L Magnesium AST Alkaline Phosphatase Total Creatine Kinase CK-MB (CK-2) Troponin T C-Reactive Protein Total Protein Albumin Cholesterol LDL Cholesterol Direct HDL Cholesterol Free T4 Urine WBC (Auto) Urine Creatinine Urine Total Protein Crossmatch 08/25/18 08/26/18 08/26/18 12:40 04:39 04:39 WBC RBC 2.96 L Hgb 8.3 L Hct 25.7 L MCV MCH MCHC RDW 18.2 H Lymph % (Auto) 10.5 L [place] % (Auto) 9.3 H Eos % (Auto) Lymph # 0.8 L [place] # Eos # Seg Neutrophils % 77.0 H Lymphocytes % (Manual) Seg Neutrophils # Lymphocytes # (Manual) PT INR APTT D-Dimer Heparin Anti-Xa Level POC ABG pH POC ABG pCO2 POC ABG pO2 Sodium 147 H Potassium Chloride 113.5 H Carbon Dioxide BUN 27 H Creatinine 0.7 L Glucose 106 H POC Glucose Lactic Acid Calcium 8.0 L Magnesium AST Alkaline Phosphatase Total Creatine Kinase CK-MB (CK-2) Troponin T C-Reactive Protein Total Protein Albumin Cholesterol LDL Cholesterol Direct HDL Cholesterol Free T4 Urine WBC (Auto) > 182.0 H Urine Creatinine Urine Total Protein Crossmatch 08/26/18 08/26/18 08/26/18 05:27 09:00 09:54 WBC RBC Hgb Hct MCV MCH MCHC RDW Lymph % (Auto) [place] % (Auto) Eos % (Auto) Lymph # [place] # Eos # Seg Neutrophils % Lymphocytes % (Manual) Seg Neutrophils # Lymphocytes # (Manual) PT INR APTT D-Dimer Heparin Anti-Xa Level POC ABG pH POC ABG pCO2 POC ABG pO2 Sodium Potassium Chloride Carbon Dioxide BUN Creatinine Glucose POC Glucose 120 H 170 H Lactic Acid Calcium Magnesium AST Alkaline Phosphatase Total Creatine Kinase CK-MB (CK-2) Troponin T C-Reactive Protein Total Protein Albumin Cholesterol LDL Cholesterol Direct HDL Cholesterol Free T4 0.51 L Urine WBC (Auto) Urine Creatinine Urine Total Protein Crossmatch 08/26/18 08/26/18 08/27/18 14:52 17:50 06:30 WBC RBC Hgb Hct MCV MCH MCHC RDW Lymph % (Auto) [place] % (Auto) Eos % (Auto) Lymph # [place] # Eos # Seg Neutrophils % Lymphocytes % (Manual) Seg Neutrophils # Lymphocytes # (Manual) PT INR APTT D-Dimer Heparin Anti-Xa Level POC ABG pH POC ABG pCO2 POC ABG pO2 Sodium 150 H Potassium Chloride 114.8 H Carbon Dioxide BUN 24 H Creatinine 0.7 L Glucose 131 H POC Glucose 166 H 107 H Lactic Acid Calcium 7.8 L Magnesium AST Alkaline Phosphatase Total Creatine Kinase CK-MB (CK-2) Troponin T C-Reactive Protein Total Protein Albumin Cholesterol LDL Cholesterol Direct HDL Cholesterol Free T4 Urine WBC (Auto) Urine Creatinine Urine Total Protein Crossmatch 08/27/18 08/27/18 08/27/18 08:22 14:20 16:06 WBC RBC Hgb Hct MCV MCH MCHC RDW Lymph % (Auto) [place] % (Auto) Eos % (Auto) Lymph # [place] # Eos # Seg Neutrophils % Lymphocytes % (Manual) Seg Neutrophils # Lymphocytes # (Manual) PT INR APTT D-Dimer Heparin Anti-Xa Level POC ABG pH POC ABG pCO2 POC ABG pO2 Sodium Potassium Chloride Carbon Dioxide BUN Creatinine Glucose POC Glucose 112 H 151 H 158 H Lactic Acid Calcium Magnesium AST Alkaline Phosphatase Total Creatine Kinase CK-MB (CK-2) Troponin T C-Reactive Protein Total Protein Albumin Cholesterol LDL Cholesterol Direct HDL Cholesterol Free T4 Urine WBC (Auto) Urine Creatinine Urine Total Protein Crossmatch 08/27/18 08/27/18 08/28/18 20:09 21:25 02:03 WBC RBC Hgb Hct MCV MCH MCHC RDW Lymph % (Auto) [place] % (Auto) Eos % (Auto) Lymph # [place] # Eos # Seg Neutrophils % Lymphocytes % (Manual) Seg Neutrophils # Lymphocytes # (Manual) PT INR APTT D-Dimer Heparin Anti-Xa Level POC ABG pH POC ABG pCO2 POC ABG pO2 130 H Sodium Potassium Chloride Carbon Dioxide BUN Creatinine Glucose POC Glucose 226 H 250 H Lactic Acid Calcium Magnesium AST Alkaline Phosphatase Total Creatine Kinase CK-MB (CK-2) Troponin T C-Reactive Protein Total Protein Albumin Cholesterol LDL Cholesterol Direct HDL Cholesterol Free T4 Urine WBC (Auto) Urine Creatinine Urine Total Protein Crossmatch 08/28/18 08/28/18 08/28/18 05:56 07:15 13:17 WBC RBC Hgb Hct MCV MCH MCHC RDW Lymph % (Auto) [place] % (Auto) Eos % (Auto) Lymph # [place] # Eos # Seg Neutrophils % Lymphocytes % (Manual) Seg Neutrophils # Lymphocytes # (Manual) PT INR APTT D-Dimer Heparin Anti-Xa Level POC ABG pH POC ABG pCO2 POC ABG pO2 Sodium Potassium Chloride Carbon Dioxide BUN Creatinine Glucose 198 H POC Glucose 221 H 188 H Lactic Acid Calcium 7.7 L Magnesium AST Alkaline Phosphatase Total Creatine Kinase CK-MB (CK-2) Troponin T C-Reactive Protein Total Protein Albumin Cholesterol LDL Cholesterol Direct HDL Cholesterol Free T4 Urine WBC (Auto) Urine Creatinine Urine Total Protein Crossmatch 08/28/18 08/28/18 08/28/18 15:53 18:12 22:35 WBC RBC Hgb Hct MCV MCH MCHC RDW Lymph % (Auto) [place] % (Auto) Eos % (Auto) Lymph # [place] # Eos # Seg Neutrophils % Lymphocytes % (Manual) Seg Neutrophils # Lymphocytes # (Manual) PT INR APTT D-Dimer Heparin Anti-Xa Level POC ABG pH 7.457 H POC ABG pCO2 POC ABG pO2 Sodium Potassium Chloride Carbon Dioxide BUN Creatinine Glucose POC Glucose 197 H 225 H Lactic Acid Calcium Magnesium AST Alkaline Phosphatase Total Creatine Kinase CK-MB (CK-2) Troponin T C-Reactive Protein Total Protein Albumin Cholesterol LDL Cholesterol Direct HDL Cholesterol Free T4 Urine WBC (Auto) Urine Creatinine Urine Total Protein Crossmatch 08/29/18 08/29/18 08/29/18 03:04 10:47 14:25 WBC RBC Hgb Hct MCV MCH MCHC RDW Lymph % (Auto) [place] % (Auto) Eos % (Auto) Lymph # [place] # Eos # Seg Neutrophils % Lymphocytes % (Manual) Seg Neutrophils # Lymphocytes # (Manual) PT INR APTT D-Dimer Heparin Anti-Xa Level POC ABG pH POC ABG pCO2 POC ABG pO2 Sodium Potassium Chloride Carbon Dioxide BUN Creatinine Glucose POC Glucose 223 H 371 H 266 H Lactic Acid Calcium Magnesium AST Alkaline Phosphatase Total Creatine Kinase CK-MB (CK-2) Troponin T C-Reactive Protein Total Protein Albumin Cholesterol LDL Cholesterol Direct HDL Cholesterol Free T4 Urine WBC (Auto) Urine Creatinine Urine Total Protein Crossmatch 08/29/18 08/29/18 08/29/18 16:45 17:36 21:33 WBC RBC Hgb Hct MCV MCH MCHC RDW Lymph % (Auto) [place] % (Auto) Eos % (Auto) Lymph # [place] # Eos # Seg Neutrophils % Lymphocytes % (Manual) Seg Neutrophils # Lymphocytes # (Manual) PT INR APTT D-Dimer Heparin Anti-Xa Level POC ABG pH POC ABG pCO2 POC ABG pO2 118 H Sodium Potassium Chloride Carbon Dioxide BUN Creatinine Glucose POC Glucose 253 H 204 H Lactic Acid Calcium Magnesium AST Alkaline Phosphatase Total Creatine Kinase CK-MB (CK-2) Troponin T C-Reactive Protein Total Protein Albumin Cholesterol LDL Cholesterol Direct HDL Cholesterol Free T4 Urine WBC (Auto) Urine Creatinine Urine Total Protein Crossmatch 08/30/18 08/30/18 08/30/18 01:33 05:27 05:40 WBC RBC 3.12 L Hgb 8.5 L Hct 25.9 L MCV 83 L MCH 27 L MCHC RDW 18.3 H Lymph % (Auto) [place] % (Auto) 7.8 H Eos % (Auto) 8.8 H Lymph # [place] # Eos # 0.6 H Seg Neutrophils % Lymphocytes % (Manual) Seg Neutrophils # Lymphocytes # (Manual) PT INR APTT D-Dimer Heparin Anti-Xa Level POC ABG pH POC ABG pCO2 POC ABG pO2 Sodium Potassium Chloride Carbon Dioxide BUN Creatinine Glucose POC Glucose 157 H 178 H Lactic Acid Calcium Magnesium AST Alkaline Phosphatase Total Creatine Kinase CK-MB (CK-2) Troponin T C-Reactive Protein Total Protein Albumin Cholesterol LDL Cholesterol Direct HDL Cholesterol Free T4 Urine WBC (Auto) Urine Creatinine Urine Total Protein Crossmatch 08/30/18 08/30/18 08/30/18 05:40 09:28 11:41 WBC RBC Hgb Hct MCV MCH MCHC RDW Lymph % (Auto) [place] % (Auto) Eos % (Auto) Lymph # [place] # Eos # Seg Neutrophils % Lymphocytes % (Manual) Seg Neutrophils # Lymphocytes # (Manual) PT INR APTT D-Dimer Heparin Anti-Xa Level POC ABG pH POC ABG pCO2 POC ABG pO2 Sodium Potassium Chloride Carbon Dioxide BUN Creatinine 0.7 L Glucose 189 H POC Glucose 216 H 257 H Lactic Acid Calcium 8.2 L Magnesium AST 50 H Alkaline Phosphatase 158 H Total Creatine Kinase CK-MB (CK-2) Troponin T C-Reactive Protein Total Protein Albumin 1.6 L Cholesterol LDL Cholesterol Direct HDL Cholesterol Free T4 Urine WBC (Auto) Urine Creatinine Urine Total Protein Crossmatch 08/30/18 08/30/18 08/30/18 14:34 17:07 21:56 WBC RBC Hgb Hct MCV MCH MCHC RDW Lymph % (Auto) [place] % (Auto) Eos % (Auto) Lymph # [place] # Eos # Seg Neutrophils % Lymphocytes % (Manual) Seg Neutrophils # Lymphocytes # (Manual) PT INR APTT D-Dimer Heparin Anti-Xa Level POC ABG pH POC ABG pCO2 POC ABG pO2 Sodium Potassium Chloride Carbon Dioxide BUN Creatinine Glucose POC Glucose 263 H 263 H 234 H Lactic Acid Calcium Magnesium AST Alkaline Phosphatase Total Creatine Kinase CK-MB (CK-2) Troponin T C-Reactive Protein Total Protein Albumin Cholesterol LDL Cholesterol Direct HDL Cholesterol Free T4 Urine WBC (Auto) Urine Creatinine Urine Total Protein Crossmatch 08/31/18 08/31/18 08/31/18 02:02 05:29 09:24 WBC RBC Hgb Hct MCV MCH MCHC RDW Lymph % (Auto) [place] % (Auto) Eos % (Auto) Lymph # [place] # Eos # Seg Neutrophils % Lymphocytes % (Manual) Seg Neutrophils # Lymphocytes # (Manual) PT INR APTT D-Dimer Heparin Anti-Xa Level POC ABG pH POC ABG pCO2 POC ABG pO2 Sodium Potassium Chloride Carbon Dioxide BUN Creatinine Glucose POC Glucose 151 H 156 H 107 H Lactic Acid Calcium Magnesium AST Alkaline Phosphatase Total Creatine Kinase CK-MB (CK-2) Troponin T C-Reactive Protein Total Protein Albumin Cholesterol LDL Cholesterol Direct HDL Cholesterol Free T4 Urine WBC (Auto) Urine Creatinine Urine Total Protein Crossmatch Chest x-ray: pending Allied health notes reviewed: nursing
[2018-08-31] MEDS: LOVENOX SUB-Q SCH (22:23)
[2018-08-31] MEDS: LANTUS SUB-Q SCH (22:25)
[2018-09-01] MEDS: HumaLOG SUB-Q SCH ×6 (02:55→21:33)
[2018-09-01] MEDS: APRESOLINE PO SCH ×3 (05:25→21:35)
[2018-09-01 06:15] LABS: Basophils % (Auto) 0.7 % (0.0-1.8); Eosinophils # (Auto) 0.4 K/mm3 (0.0-0.4); Eosinophils % (Auto) 6.1 % (0.0-4.3); Hematocrit 25.6 % (35.5-45.6); Hemoglobin 8.5 gm/dl (11.8-15.2); Lymphocytes # (Auto) 1.7 K/mm3 (1.2-5.4); Lymphocytes % (Auto) 26.8 % (13.4-35.0); Mean Corpuscular HGB Conc 33 % (32-34); Mean Corpuscular Volume 83 fl (84-94); Monocytes # (Auto) 0.5 K/mm3 (0.0-0.8); Monocytes % (Auto) 7.9 % (0.0-7.3); Platelet Count 259 K/mm3 (140-440); Red Blood Count 3.08 M/mm3 (3.65-5.03); Red Cell Distribution Width 18.7 % (13.2-15.2)
[2018-09-01 06:37] LABS: BUN/Creatinine Ratio 30; Blood Urea Nitrogen 21 mg/dL (9-20); Calcium 8.5 mg/dL (8.4-10.2); Hemolysis Index 2
--- NOTE | 2018-09-01 09:30 | Progress Note ---
Assessment and Plan Assessment and plan: Patient is a 77 yo man from [facility] with a history of respiratory failure, CVA with tracheostomy and Gtube who presented to [facility] ED following cardiac arrest after being found unresponsive at the [place] [facility]. Time down is unknown per records. The patient is on the vent and unresponsive, all history is obtained from the chart. Patient had multiple episodes of arrest/pulselessness. He has been on the vent since then without any improvement. Per ER notes the patient was bagged via tracheostomy which continued to have low tidal volumes and so the patient with orally intubated after which tidal volumes improved. Initially, he went to [facility] may 05 to june 05, he had fluid on brain and multiple strokes per family and they drained the fluid off the brain. The trach was placed at [facility] and patient went to [facility], x 7 weeks (trach was changed where capped was placed), he was doing well, talking and sitting up. Then he went to [facility], August 03 Then on August 12, Friday, he had cardio-respiratory arrest. The [place] brain flow scan showed reduced blood flow. Patient had evaluation by neurology who reports patient with intact brainstem function. Cardiopulmonary arrest x 3: Supportive care, cardiology and Pulm were follwing. Cardiology now signed off. Acute on chronic respiratory failure Trach has been removed when patient was orally intubated, continue ventilator management per pulmonology. Tracheostomy was replaced by surgery on 08/25/18. Tracheostomy care, airway clearance, secretion management Right pneumothorax, resolved. Status post chest tube, mgt per pulmonology Anoxic encephalopathy: neurology consult appreciated, poor prognosis, poor likelihood of recovery, preserved brain stem function otherwise unresponsive. EEG is suggestive hypoxic encephalopathy. Hypertension. On Hydralazine 75 mg 3 times a day Hypernatremia, Continue free water via G-tube, s/p hypotonic IV solution, monitor bmp closely Acute kidney injury likely due to ATN Nephrology following, continue IV fluid, avoid renal toxic agents NSTEMI: treated with IV heparin, asa, statin, no bblocker due to bradycardia, hypotension, Cardiology was following Severe protein calorie malnutrition: Dietitian consulted, continue tube feedings UTI/sepsis: Continue antibiotics, follow-up urine cultures-->no growth x 48 hours Type 2 dm with persistent hyperglycemia: cont insulins and adjust according, on tube feedings Anemia: s/p transfusion Urinary retention: DVT prophylaxis; On Lovenox Disposition. LTAC referral. Poor prognosis The high probability of a clinically significant, sudden or life threatening deterioration of the [neurology and respiratory] system(s) required my full and direct attention, intervention and personal management. The aggregate critical care time was [35] minutes. This time is in addition to time spent performing reported procedures but includes the following: [x] Data Review and interpretation [x] Patient assessment and monitoring of vital signs [x] Documentation History Interval history: Still intubated, n vent still unresponsive Hospitalist Physical - Physical exam Narrative exam: Gen: Not in acute distress, lying in bed, HEENT: Normocephalic, atraumatic Neck: supple, no JVD Heart: S1 and S2 reg, no murmurs, rubs or gallop Lungs: Clear, no crackles, no wheeze Abd: soft, non tender, non distended, normal BS Ext: Bilateral leg and feet ulcers, swelling, erythema,no clubbing, no cyanosis, Neuro: Awake,alert, oriented x 3, moves all ext, non focal Psych:Normal mood - Constitutional Vitals: Temp Pulse Resp BP Pulse Ox 98.1 F 74 16 156/72 100 09/01/18 08:00 09/01/18 09:10 09/01/18 09:01 09/01/18 09:10 09/01/18 09:10 General appearance: Present: other (twitching, nonresponsive, intubated) Results - Labs CBC & Chem 7: 09/01/18 05:19 09/01/18 05:19 Labs: Laboratory Last Values WBC 6.2 K/mm3 (4.5-11.0) 09/01/18 05:19 RBC 3.08 M/mm3 (3.65-5.03) L 09/01/18 05:19 Hgb 8.5 gm/dl (11.8-15.2) L 09/01/18 05:19 Hct 25.6 % (35.5-45.6) L 09/01/18 05:19 MCV 83 fl (84-94) L 09/01/18 05:19 MCH 28 pg (28-32) 09/01/18 05:19 MCHC 33 % (32-34) 09/01/18 05:19 RDW 18.7 % (13.2-15.2) H 09/01/18 05:19 Plt Count 259 K/mm3 (140-440) 09/01/18 05:19 Lymph % (Auto) 26.8 % (13.4-35.0) 09/01/18 05:19 [place] % (Auto) 7.9 % (0.0-7.3) H 09/01/18 05:19 Eos % (Auto) 6.1 % (0.0-4.3) H 09/01/18 05:19 Baso % (Auto) 0.7 % (0.0-1.8) 09/01/18 05:19 Lymph # 1.7 K/mm3 (1.2-5.4) 09/01/18 05:19 [place] # 0.5 K/mm3 (0.0-0.8) 09/01/18 05:19 Eos # 0.4 K/mm3 (0.0-0.4) 09/01/18 05:19 Baso # 0.0 K/mm3 (0.0-0.1) 09/01/18 05:19 Add Manual Diff Complete 08/12/18 21:44 Total Counted 100 08/12/18 21:44 Seg Neutrophils % 58.5 % (40.0-70.0) 09/01/18 05:19 Seg Neuts % (Manual) 44.0 % (40.0-70.0) 08/12/18 21:44 0 % 08/12/18 21:44 48.0 % (13.4-35.0) H 08/12/18 21:44 Reactive Lymphs % (Man) 0 % 08/12/18 21:44 2.0 % (0.0-7.3) 08/12/18 21:44 1.0 % (0.0-4.3) 08/12/18 21:44 0 % (0.0-1.8) 08/12/18 21:44 1.0 % 08/12/18 21:44 4.0 % 08/12/18 21:44 0 % 08/12/18 21:44 0 % 08/12/18 21:44 Nucleated RBC % Not Reportable 08/12/18 21:44 Seg Neutrophils # 3.6 K/mm3 (1.8-7.7) 09/01/18 05:19 Seg Neutrophils # Man 6.8 K/mm3 (1.8-7.7) 08/12/18 21:44 Band Neutrophils # 0.0 K/mm3 08/12/18 21:44 7.4 K/mm3 (1.2-5.4) H 08/12/18 21:44 Abs React Lymphs (Man) 0.0 K/mm3 08/12/18 21:44 0.3 K/mm3 (0.0-0.8) 08/12/18 21:44 0.2 K/mm3 (0.0-0.4) 08/12/18 21:44 0.0 K/mm3 (0.0-0.1) 08/12/18 21:44 0.2 K/mm3 08/12/18 21:44 0.6 K/mm3 08/12/18 21:44 0.0 K/mm3 08/12/18 21:44 Blast Cells # 0.0 K/mm3 08/12/18 21:44 WBC Morphology Not Reportable 08/12/18 21:44 Hypersegmented Neuts Not Reportable 08/12/18 21:44 Hyposegmented Neuts Not Reportable 08/12/18 21:44 Hypogranular Neuts Not Reportable 08/12/18 21:44 Not Reportable 08/12/18 21:44 Not Reportable 08/12/18 21:44 Not Reportable 08/12/18 21:44 Not Reportable 08/12/18 21:44 Not Reportable 08/12/18 21:44 Not Reportable 08/12/18 21:44 Consistent w auto 08/12/18 21:44 Not Reportable 08/12/18 21:44 Plt Clumps, EDTA Not Reportable 08/12/18 21:44 Not Reportable 08/12/18 21:44 Not Reportable 08/12/18 21:44 Not Reportable 08/12/18 21:44 Plt Morphology Comment Not Reportable 08/12/18 21:44 RBC Morphology Not Reportable 08/12/18 21:44 Dimorphic RBCs Not Reportable 08/12/18 21:44 Not Reportable 08/12/18 21:44 Not Reportable 08/12/18 21:44 Not Reportable 08/12/18 21:44 Few 08/12/18 21:44 Not Reportable 08/12/18 21:44 Not Reportable 08/12/18 21:44 Not Reportable 08/12/18 21:44 Not Reportable 08/12/18 21:44 Not Reportable 08/12/18 21:44 Not Reportable 08/12/18 21:44 Not Reportable 08/12/18 21:44 Few 08/12/18 21:44 Not Reportable 08/12/18 21:44 Not Reportable 08/12/18 21:44 Not Reportable 08/12/18 21:44 Not Reportable 08/12/18 21:44 Not Reportable 08/12/18 21:44 Not Reportable 08/12/18 21:44 Few 08/12/18 21:44 Acanthocytes (Spur) Not Reportable 08/12/18 21:44 Rouleaux Not Reportable 08/12/18 21:44 Not Reportable 08/12/18 21:44 Not Reportable 08/12/18 21:44 Not Reportable 08/12/18 21:44 Not Reportable 08/12/18 21:44 Hem Pathologist Commnt No 08/12/18 21:44 PT 16.5 Sec. (12.2-14.9) H 08/13/18 00:47 INR 1.25 (0.87-1.13) H 08/13/18 00:47 APTT 79.0 Sec. (24.2-36.6) H* 08/15/18 06:35 2742.50 ng/mlDDU (0-234) H 08/13/18 20:07 Heparin Anti-Xa Level 0.26 U.I./ml (0.3-0.7) L 08/16/18 20:01 POC ABG pH 7.389 (7.35-7.45) 08/31/18 22:25 POC ABG pCO2 45.6 (35-45) H 08/31/18 22:25 POC ABG pO2 135 (80-105) H 08/31/18 22:25 POC ABG HCO3 27.5 (22-26 mml/L) 08/31/18 22:25 POC ABG Total CO2 29 (23-27mmol/L) 08/31/18 22:25 POC ABG O2 Sat 99 08/31/18 22:25 POC ABG Base Excess 3 ((-2) - (+3)mmol/L) 08/31/18 22:25 28 % 08/31/18 22:25 Sodium 145 mmol/L (137-145) 09/01/18 05:19 Potassium 3.9 mmol/L (3.6-5.0) 09/01/18 05:19 Chloride 107.9 mmol/L (98-107) H 09/01/18 05:19 Carbon Dioxide 28 mmol/L (22-30) 09/01/18 05:19 13 mmol/L 09/01/18 05:19 BUN 21 mg/dL (9-20) H 09/01/18 05:19 0.7 mg/dL (0.8-1.5) L 09/01/18 05:19 Estimated GFR > 60 ml/min 09/01/18 05:19 30 % 09/01/18 05:19 Glucose 188 mg/dL (75-100) H 09/01/18 05:19 POC Glucose 231 (70-105) H 09/01/18 09:29 Lactic Acid 2.80 mmol/L (0.7-2.0) H* 08/13/18 12:53 Calcium 8.5 mg/dL (8.4-10.2) 09/01/18 05:19 Phosphorus 3.90 mg/dL (2.5-4.5) 08/15/18 04:05 Magnesium 2.20 mg/dL (1.7-2.3) 08/15/18 04:05 < 0.20 mg/dL (0.1-1.2) 08/30/18 05:40 AST 50 units/L (5-40) H 08/30/18 05:40 ALT 31 units/L (7-56) 08/30/18 05:40 158 units/L (35-129) H 08/30/18 05:40 309 units/L (55-170) H 08/13/18 10:10 CK-MB (CK-2) 4.1 ng/mL (0.0-4.0) H 08/13/18 10:10 CK-MB (CK-2) Rel Index 1.3 (0-4) 08/13/18 10:10 0.409 ng/mL (0.00-0.029) H* 08/14/18 04:03 16.90 mg/dL (0.00-1.30) H 08/13/18 12:53 6.4 g/dL (6.3-8.2) 08/30/18 05:40 1.6 g/dL (3.9-5) L 08/30/18 05:40 0.3 % 08/30/18 05:40 Triglycerides 62 mg/dL (2-149) 08/13/18 00:32 Cholesterol 46 mg/dL (50-199) L 08/13/18 00:32 17 mg/dL (50-130) L 08/13/18 00:32 6 mg/dL (40-59) L 08/13/18 00:32 7.66 % 08/13/18 00:32 TSH 0.973 mlU/mL (0.270-4.200) 08/26/18 09:00 Free T4 0.51 ng/dL (0.76-1.46) L 08/26/18 09:00 Yellow (Yellow) 08/25/18 12:40 Turbid (Clear) 08/25/18 12:40 7.0 (5.0-7.0) 08/25/18 12:40 Ur Specific [place] 1.009 (1.003-1.030) 08/25/18 12:40 100 mg/dl mg/dL (Negative) 08/25/18 12:40 Neg mg/dL (Negative) 08/25/18 12:40 Neg mg/dL (Negative) 08/25/18 12:40 Mod (Negative) 08/25/18 12:40 Neg (Negative) 08/25/18 12:40 Neg (Negative) 08/25/18 12:40 < 2.0 mg/dL (<2.0) 08/25/18 12:40 Ur Leukocyte Esterase Lg (Negative) 08/25/18 12:40 > 182.0 /HPF (0.0-6.0) H 08/25/18 12:40 10.0 /HPF (0.0-6.0) 08/25/18 12:40 U Epithel Cells (Auto) 5.0 /HPF (0-13.0) 08/25/18 12:40 2+ /HPF (Negative) 08/13/18 00:50 3+ /HPF 08/25/18 12:40 None seen (None Seen) 08/14/18 17:20 60.9 mg/dL (0.1-20.0) H 08/14/18 17:20 32 mmol/L 08/14/18 17:20 64 mg/dL (5-11.8) H 08/14/18 17:20 Presumptive negative 08/12/18 21:30 Presumptive negative 08/12/18 21:30 Ur Barbiturates Screen Presumptive negative 08/12/18 21:30 Ur Phencyclidine Scrn Presumptive negative 08/12/18 21:30 Ur Amphetamines Screen Presumptive negative 08/12/18 21:30 U Benzodiazepines Scrn Presumptive negative 08/12/18 21:30 Presumptive negative 08/12/18 21:30 U Marijuana (THC) Screen Presumptive negative 08/12/18 21:30 Disclamer 08/12/18 21:30 Blood Type O POSITIVE 08/15/18 15:31 Antibody Screen Negative 08/15/18 15:31 Crossmatch See Detail 08/15/18 15:31 Active Medications - Current Medications Current Medications: Generic Name Dose Route Start Last Admin Trade Name Freq PRN Reason Stop Dose Admin Acetaminophen 650 mg 08/13/18 11:40 08/13/18 16:09 Tylenol PO 650 mg Q6H PRN Administration Fever >101 Lipase/Protease/Amylase 1 each 08/25/18 18:36 Pancreaze 10,500 Unit FEEDTUBE PRN PRN For Clogged Feeding Tube Aspirin 325 mg 08/17/18 10:00 08/31/18 09:24 Aspirin PO 325 mg QDAY LENCHO Administration Atorvastatin Calcium 40 mg 08/14/18 22:00 08/31/18 22:23 Lipitor PO 40 mg QHS LENCHO Administration Dextrose 50 ml 08/13/18 01:34 D50w (25gm) Syringe IV PRN PRN Hypoglycemia Enoxaparin Sodium 40 mg 08/17/18 22:00 08/31/18 22:23 Lovenox SUB-Q 40 mg QDAY@2200 LENCHO Administration Famotidine 20 mg 08/19/18 10:00 08/31/18 22:22 Pepcid PO 20 mg BID LENCHO Administration Hydralazine HCl 75 mg 08/29/18 14:00 09/01/18 05:25 Apresoline PO 75 mg Q8HR LENCHO Administration Hydrophilic Ointment 1 applic 08/13/18 12:21 Vaseline Lip Therapy TP Q2HR PRN Dry Lips Insulin Glargine 10 units 08/30/18 22:00 08/31/18 22:25 Lantus SUB-Q 10 units QHS LENCHO Administration Insulin Human Lispro 0 unit 08/26/18 10:00 09/01/18 05:25 Humalog SUB-Q 3 unit Q4HR LENCHO Administration Protocol Levetiracetam 500 mg 08/27/18 22:00 08/31/18 22:21 Keppra PO 500 mg BID LENCHO Administration Modafinil 100 mg 08/27/18 10:00 08/31/18 09:24 Provigil PO 100 mg QAM LENCHO Administration Multi-Ingred Cream/Lotion/Oil/Oint 1 applic 08/13/18 12:21 08/17/18 00:41 Artificial Tears Ophth Oint OU 1 applic Q4HR PRN Administration Dry Eye(s) Ondansetron HCl 4 mg 08/13/18 01:34 Zofran IV Q8H PRN Nausea And Vomiting Simple Syrup 15 ml 08/25/18 18:36 Simple Syrup FEEDTUBE PRN PRN Hypoglycemia Simple Syrup 30 ml 08/25/18 18:36 Simple Syrup FEEDTUBE PRN PRN Hypoglycemia Sodium Bicarbonate 325 mg 08/25/18 18:36 Sodium Bicarbonate FEEDTUBE PRN PRN For Clogged Feeding Tube Sodium Chloride 10 ml 08/13/18 10:00 08/31/18 22:20 Sodium Chloride Flush Syringe 10 Ml IV 10 ml BID LENCHO Administration Sodium Chloride 10 ml 08/13/18 01:34 08/30/18 22:29 Sodium Chloride Flush Syringe 10 Ml IV 10 ml PRN PRN Administration LINE FLUSH Nutrition/Malnutrition Assess - Dietary Evaluation Nutrition/Malnutrition Findings: Nutrition Notes Start: 08/13/18 15:41 Freq: Status: Active Protocol: Document 08/31/18 13:06 LP (Rec: 08/31/18 13:09 LP [email or web address]) Nutrition Notes Initial or Follow up Reassessment Current Diagnosis Acute Kidney Injury,Diabetes Other Pertinent Diagnosis UTI, Hx CVA, PEG, Sacral PU, Multiple PU, Anoxic brain injury,R pneumothorax Current Diet Vital 1.2 at 60 ml/hr Labs/Tests Na 140 Pertinent Medications Reviewed Height 5 ft 8 in Weight 83.5 kg [place] Body Weight (kg) 70.00 BMI 28.0 Subjective/Other Information Pt TF at 50ml/hr. Percent of energy/protein needs met: 81%/100% Burn Absent Trauma Absent #1 Nutrition Diagnosis Inadequate oral intake Diagnosis Progress(for reassessment Continues documentation) Is patient on ventilator? Yes Is Patient Ambulatory and/or Out of Bed No REE-([facility]-confined to bed) [phone] Calculation Used for Recommendations [facility] Additional Notes Protein Needs: 87-145g (1.2-2g /kg) Fluid Needs: 1 ml/kcal Nutrition Intervention Change Diet Order: TF Nutrition Support: Vital 1.2 at 60 ml/hr. Water flush of 250ml q4h for hypernatremia and 100 mls q 4 hrs once resolved. Kcal 1,728 Protein (gm) 108 Fluid (mL) 1,167 Add Supplement/Snack (indicate name/kcal Magen BID /protein ) Provides kCal: 190 Provides Protein (gm) 5 Goal #1 Meet at least 80% of calorie and protein needs via TF Anticipated Discharge Needs: TF Follow-Up By: 09/03/18 Additional Comments Follow for TF tolerance at goal
[2018-09-01] MEDS: SODIUM CHLORIDE FLUSH SYRINGE 10 ML IV SCH ×2 (10:40→21:45)
[2018-09-01] MEDS: ASPIRIN PO SCH (11:04)
[2018-09-01] MEDS: PEPCID PO SCH ×2 (11:04→21:39)
[2018-09-01] MEDS: KEPPRA PO SCH ×2 (11:04→21:35)
[2018-09-01] MEDS: PROVIGIL PO SCH (11:04)
--- NOTE | 2018-09-01 11:15 | Progress Note ---
Assessment and Plan Acute hypoxemic respiratory failure on chronic. Status post cardiac arrest. Seizure disorder with breakthrough seizures. History of diabetes. History of cerebrovascular accident. Oropharyngeal dysphagia. History of seizures. - discontinued PICC line - prn ABG's & CXR's at this point - continue Keppra for seizures with prn ativan IV for breakthrough (now dosed at 500mg IV bid) - continue provigil - continue bronchodilators with routine trach care and pulmonary hygiene per RT - neurology evaluation ongoing (pupils reactive sluggishly) - sedation target for RASS 0 to -1 (daily SAT's as tolerated) - continue GI & VTE prophylaxis - continue to wean supplemental oxygen to keep O2 sats 88-90% - Lung protective strategies - VAP bundle addressed - Continue cardioprotective measures - Replete electrolytes as indicated - Continue to rest at night on full MVS - Monitor renal indices closely - Avoid nephrotoxic agents, adjust all medications for CrCL - Strict intake and output monitoring - continue enteral nutrition as tolerated - continue accuchecks with glycemic control per SSI for target glucose of 140-1 80 mg/dL (Lantus re-introduced) - Maintenance of sleep -wake cycle modalities - Mobility as tolerated by hemodynamics - Influenza and pneumonia vaccination per protocol - discharge planning ongoing concurrently .... care plan discussed at length with family in room today PROGNOSIS: GUARDED CONDITION: CRITICAL CODE STATUS: FULL CODE The high probability of a clinically significant, sudden or life-threatening deterioration of the [respiratory, neurology, renal] system(s) required my full and direct attention, intervention and personal management. The aggregate critical care time was [34] minutes without overlap. Time includes spent on; [x] Data Review and interpretation [x] Patient assessment and monitoring of vital signs [x] Documentation [x] Medication orders and management Subjective Date of service: 09/01/18 Principal diagnosis: Acute hypoxemic resp failure; S/P cardiac arrest; Seizures; DM II; H/O CVA Interval history: Patient is seen today for: Acute hypoxemic respiratory failure on chronic; Status post cardiac arrest; Seizure disorder with breakthrough seizures; History of diabetes; History of cerebrovascular accident; Oropharyngeal dysphagia; History of seizures. Seen and examined at bedside; 24hour events reviewed; nursing and respiratory care staff consulted; no adverse overnight events reported to me; remains on MVS; AMS is persistent; tolerating PSV very well so far today but at Psupp of 12 cmH2O and intermittently kicking back into apnea ventilation mode Objective Vital Signs - 12hr 08/31/18 08/31/18 08/31/18 23:15 23:20 23:30 Temperature Pulse Rate 71 70 75 Pulse Rate [ 71 From Monitor] Respiratory 14 12 11 L Rate Blood Pressure 167/73 139/73 O2 Sat by Pulse 100 100 100 Oximetry O2 Sat by Pulse Oximetry [ Assessment] 08/31/18 08/31/18 08/31/18 23:31 23:37 23:41 Temperature Pulse Rate 73 70 Pulse Rate [ From Monitor] Respiratory 14 14 Rate Blood Pressure 139/73 139/73 O2 Sat by Pulse 100 70 L Oximetry O2 Sat by Pulse 100 Oximetry [ Assessment] 09/01/18 09/01/18 09/01/18 00:00 00:30 00:58 Temperature Pulse Rate 71 73 81 Pulse Rate [ 71 From Monitor] Respiratory 11 L 14 12 Rate Blood Pressure 136/64 167/79 O2 Sat by Pulse 100 99 100 Oximetry O2 Sat by Pulse Oximetry [ Assessment] 09/01/18 09/01/18 09/01/18 01:00 01:30 02:00 Temperature Pulse Rate 76 74 76 Pulse Rate [ From Monitor] Respiratory 15 15 13 Rate Blood Pressure 157/79 144/75 138/73 O2 Sat by Pulse 99 98 98 Oximetry O2 Sat by Pulse Oximetry [ Assessment] 09/01/18 09/01/18 09/01/18 02:30 03:01 03:22 Temperature 98.7 F Pulse Rate 81 78 Pulse Rate [ 75 From Monitor] Respiratory 14 14 Rate Blood Pressure 130/73 163/79 O2 Sat by Pulse 95 99 Oximetry O2 Sat by Pulse Oximetry [ Assessment] 09/01/18 09/01/18 09/01/18 03:31 04:00 04:30 Temperature Pulse Rate 75 70 75 Pulse Rate [ From Monitor] Respiratory 15 14 15 Rate Blood Pressure 167/81 167/81 144/77 O2 Sat by Pulse 99 100 96 Oximetry O2 Sat by Pulse Oximetry [ Assessment] 09/01/18 09/01/18 09/01/18 04:31 04:35 05:00 Temperature Pulse Rate 75 75 74 Pulse Rate [ 74 From Monitor] Respiratory 12 15 12 Rate Blood Pressure 144/77 130/71 O2 Sat by Pulse 74 L 100 97 Oximetry O2 Sat by Pulse Oximetry [ Assessment] 09/01/18 09/01/18 09/01/18 05:15 05:25 05:30 Temperature Pulse Rate 74 74 75 Pulse Rate [ From Monitor] Respiratory 14 13 Rate Blood Pressure 130/71 157/69 O2 Sat by Pulse 96 96 Oximetry O2 Sat by Pulse Oximetry [ Assessment] 09/01/18 09/01/18 09/01/18 06:00 06:30 07:01 Temperature Pulse Rate 79 70 68 Pulse Rate [ From Monitor] Respiratory 14 16 17 Rate Blood Pressure 146/72 135/68 140/63 O2 Sat by Pulse 94 95 95 Oximetry O2 Sat by Pulse Oximetry [ Assessment] 09/01/18 09/01/18 09/01/18 07:31 08:00 08:30 Temperature 98.1 F Pulse Rate 67 66 69 Pulse Rate [ From Monitor] Respiratory 15 15 14 Rate Blood Pressure 152/67 146/72 135/70 O2 Sat by Pulse 96 99 99 Oximetry O2 Sat by Pulse Oximetry [ Assessment] 09/01/18 09/01/18 09:01 09:10 Temperature Pulse Rate 69 74 Pulse Rate [ From Monitor] Respiratory 16 Rate Blood Pressure 156/72 156/72 O2 Sat by Pulse 100 100 Oximetry O2 Sat by Pulse Oximetry [ Assessment] Constitutional: no acute distress, other (Elderly looking AAM, normocephalic resting in bed on MVS) Eyes: non-icteric ENT: oropharynx moist Neck: supple, no lymphadenopathy, no JVD, other (s/p tracheostomy) Effort: mildly labored Ascultation: Bilateral: diminished breath sounds, rhonchi Percussion: Bilateral: not dull Cardiovascular: regular rate and rhythm Gastrointestinal: normoactive bowel sounds, soft, non-tender, non-distended Integumentary: normal Extremities: no cyanosis, pulses normal, no ischemia or petechiae, edema (trace ) Neurologic: unable to assess, other (slight pupillary constriction to light) Psychiatric: other (unable to assess) CBC and BMP: 09/01/18 05:19 09/01/18 05:19 ABG, PT/INR, D-dimer: ABG POC ABG pH 7.389 (7.35-7.45) 08/31/18 22:25 POC ABG pCO2 45.6 (35-45) H 08/31/18 22:25 POC ABG pO2 135 (80-105) H 08/31/18 22:25 POC ABG HCO3 27.5 (22-26 mml/L) 08/31/18 22:25 POC ABG Total CO2 29 (23-27mmol/L) 08/31/18 22:25 POC ABG O2 Sat 99 08/31/18 22:25 PT/INR, D-dimer PT 16.5 Sec. (12.2-14.9) H 08/13/18 00:47 INR 1.25 (0.87-1.13) H 08/13/18 00:47 2742.50 ng/mlDDU (0-234) H 08/13/18 20:07 Abnormal lab findings: Abnormal Labs 08/12/18 08/12/18 08/12/18 21:44 21:44 21:44 WBC 15.5 H RBC 3.12 L Hgb 8.8 L Hct 28.9 L MCV MCH MCHC 31 L RDW 19.5 H Lymph % (Auto) [place] % (Auto) Eos % (Auto) Lymph # [place] # Eos # Seg Neutrophils % Lymphocytes % (Manual) 48.0 H Seg Neutrophils # Lymphocytes # (Manual) 7.4 H PT 17.8 H INR 1.37 H APTT D-Dimer Heparin Anti-Xa Level POC ABG pH POC ABG pCO2 POC ABG pO2 Sodium 159 H Potassium Chloride 118.5 H Carbon Dioxide BUN 34 H Creatinine Glucose 161 H POC Glucose Lactic Acid Calcium Magnesium AST Alkaline Phosphatase Total Creatine Kinase CK-MB (CK-2) Troponin T 0.105 H* C-Reactive Protein Total Protein Albumin Cholesterol LDL Cholesterol Direct HDL Cholesterol Free T4 Urine WBC (Auto) Urine Creatinine Urine Total Protein Crossmatch 08/13/18 08/13/18 08/13/18 00:32 00:47 00:47 WBC RBC Hgb 9.2 L Hct 29.6 L MCV MCH MCHC RDW Lymph % (Auto) [place] % (Auto) Eos % (Auto) Lymph # [place] # Eos # Seg Neutrophils % Lymphocytes % (Manual) Seg Neutrophils # Lymphocytes # (Manual) PT 16.5 H INR 1.25 H APTT 37.3 H D-Dimer Heparin Anti-Xa Level POC ABG pH POC ABG pCO2 POC ABG pO2 Sodium Potassium Chloride Carbon Dioxide BUN Creatinine Glucose POC Glucose Lactic Acid Calcium Magnesium AST Alkaline Phosphatase Total Creatine Kinase 211 H CK-MB (CK-2) 7.7 H Troponin T 0.169 H* D C-Reactive Protein Total Protein Albumin Cholesterol 46 L LDL Cholesterol Direct 17 L HDL Cholesterol 6 L Free T4 Urine WBC (Auto) Urine Creatinine Urine Total Protein Crossmatch 08/13/18 08/13/18 08/13/18 00:50 02:25 05:34 WBC RBC Hgb Hct MCV MCH MCHC RDW Lymph % (Auto) [place] % (Auto) Eos % (Auto) Lymph # [place] # Eos # Seg Neutrophils % Lymphocytes % (Manual) Seg Neutrophils # Lymphocytes # (Manual) PT INR APTT D-Dimer Heparin Anti-Xa Level POC ABG pH 7.503 H POC ABG pCO2 POC ABG pO2 253 H Sodium Potassium Chloride Carbon Dioxide BUN Creatinine Glucose POC Glucose Lactic Acid Calcium Magnesium AST Alkaline Phosphatase Total Creatine Kinase 311 H CK-MB (CK-2) 10.4 H Troponin T 0.283 H* D C-Reactive Protein Total Protein Albumin Cholesterol LDL Cholesterol Direct HDL Cholesterol Free T4 Urine WBC (Auto) > 182.0 H Urine Creatinine Urine Total Protein Crossmatch 08/13/18 08/13/18 08/13/18 06:35 10:10 10:10 WBC RBC Hgb Hct MCV MCH MCHC RDW Lymph % (Auto) [place] % (Auto) Eos % (Auto) Lymph # [place] # Eos # Seg Neutrophils % Lymphocytes % (Manual) Seg Neutrophils # Lymphocytes # (Manual) PT INR APTT D-Dimer Heparin Anti-Xa Level POC ABG pH 7.554 H POC ABG pCO2 33.5 L POC ABG pO2 220 H Sodium 158 H Potassium Chloride 117.1 H Carbon Dioxide BUN 53 H Creatinine 2.0 H Glucose 247 H POC Glucose Lactic Acid Calcium 8.2 L Magnesium AST Alkaline Phosphatase Total Creatine Kinase 309 H CK-MB (CK-2) 4.1 H Troponin T 0.470 H* D C-Reactive Protein Total Protein Albumin Cholesterol LDL Cholesterol Direct HDL Cholesterol Free T4 Urine WBC (Auto) Urine Creatinine Urine Total Protein Crossmatch 08/13/18 08/13/18 08/13/18 12:53 12:53 17:55 WBC RBC Hgb Hct MCV MCH MCHC RDW Lymph % (Auto) [place] % (Auto) Eos % (Auto) Lymph # [place] # Eos # Seg Neutrophils % Lymphocytes % (Manual) Seg Neutrophils # Lymphocytes # (Manual) PT INR APTT D-Dimer Heparin Anti-Xa Level POC ABG pH POC ABG pCO2 POC ABG pO2 Sodium Potassium Chloride Carbon Dioxide BUN Creatinine Glucose POC Glucose 308 H Lactic Acid 2.80 H* Calcium Magnesium 2.50 H AST Alkaline Phosphatase Total Creatine Kinase CK-MB (CK-2) Troponin T C-Reactive Protein 16.90 H Total Protein Albumin Cholesterol LDL Cholesterol Direct HDL Cholesterol Free T4 Urine WBC (Auto) Urine Creatinine Urine Total Protein Crossmatch 08/13/18 08/13/18 08/13/18 20:07 21:16 23:17 WBC RBC Hgb Hct MCV MCH MCHC RDW Lymph % (Auto) [place] % (Auto) Eos % (Auto) Lymph # [place] # Eos # Seg Neutrophils % Lymphocytes % (Manual) Seg Neutrophils # Lymphocytes # (Manual) PT INR APTT D-Dimer 2742.50 H Heparin Anti-Xa Level POC ABG pH 7.483 H POC ABG pCO2 30.8 L POC ABG pO2 150 H Sodium Potassium Chloride Carbon Dioxide BUN Creatinine Glucose POC Glucose 245 H Lactic Acid Calcium Magnesium AST Alkaline Phosphatase Total Creatine Kinase CK-MB (CK-2) Troponin T C-Reactive Protein Total Protein Albumin Cholesterol LDL Cholesterol Direct HDL Cholesterol Free T4 Urine WBC (Auto) Urine Creatinine Urine Total Protein Crossmatch 08/14/18 08/14/18 08/14/18 04:03 04:03 04:56 WBC 18.2 H RBC 2.62 L Hgb 7.3 L Hct 24.5 L MCV MCH MCHC RDW 18.9 H Lymph % (Auto) [place] % (Auto) Eos % (Auto) Lymph # [place] # 1.2 H Eos # Seg Neutrophils % 79.4 H Lymphocytes % (Manual) Seg Neutrophils # 14.5 H Lymphocytes # (Manual) PT INR APTT D-Dimer Heparin Anti-Xa Level POC ABG pH POC ABG pCO2 33.5 L POC ABG pO2 153 H Sodium 152 H Potassium 3.4 L Chloride 113.8 H Carbon Dioxide BUN 72 H Creatinine 2.7 H Glucose 239 H POC Glucose Lactic Acid Calcium 7.6 L Magnesium AST 50 H Alkaline Phosphatase 219 H Total Creatine Kinase CK-MB (CK-2) Troponin T 0.409 H* C-Reactive Protein Total Protein 6.2 L Albumin 1.9 L Cholesterol LDL Cholesterol Direct HDL Cholesterol Free T4 Urine WBC (Auto) Urine Creatinine Urine Total Protein Crossmatch 08/14/18 08/14/18 08/14/18 05:18 13:38 15:35 WBC RBC Hgb Hct MCV MCH MCHC RDW Lymph % (Auto) [place] % (Auto) Eos % (Auto) Lymph # [place] # Eos # Seg Neutrophils % Lymphocytes % (Manual) Seg Neutrophils # Lymphocytes # (Manual) PT INR APTT D-Dimer Heparin Anti-Xa Level POC ABG pH POC ABG pCO2 POC ABG pO2 Sodium 150 H Potassium 3.2 L Chloride 114.5 H Carbon Dioxide BUN 69 H Creatinine 2.3 H Glucose 247 H POC Glucose 242 H 296 H Lactic Acid Calcium 7.2 L Magnesium AST Alkaline Phosphatase Total Creatine Kinase CK-MB (CK-2) Troponin T C-Reactive Protein Total Protein Albumin Cholesterol LDL Cholesterol Direct HDL Cholesterol Free T4 Urine WBC (Auto) Urine Creatinine Urine Total Protein Crossmatch 08/14/18 08/14/18 08/14/18 17:01 17:20 23:47 WBC RBC Hgb Hct MCV MCH MCHC RDW Lymph % (Auto) [place] % (Auto) Eos % (Auto) Lymph # [place] # Eos # Seg Neutrophils % Lymphocytes % (Manual) Seg Neutrophils # Lymphocytes # (Manual) PT INR APTT D-Dimer Heparin Anti-Xa Level POC ABG pH POC ABG pCO2 POC ABG pO2 Sodium Potassium Chloride Carbon Dioxide BUN Creatinine Glucose POC Glucose 261 H 280 H Lactic Acid Calcium Magnesium AST Alkaline Phosphatase Total Creatine Kinase CK-MB (CK-2) Troponin T C-Reactive Protein Total Protein Albumin Cholesterol LDL Cholesterol Direct HDL Cholesterol Free T4 Urine WBC (Auto) Urine Creatinine 60.9 H Urine Total Protein 64 H Crossmatch 08/15/18 08/15/18 08/15/18 04:05 04:05 04:05 WBC RBC Hgb 6.3 L Hct 19.7 L* MCV MCH MCHC RDW Lymph % (Auto) [place] % (Auto) Eos % (Auto) Lymph # [place] # Eos # Seg Neutrophils % Lymphocytes % (Manual) Seg Neutrophils # Lymphocytes # (Manual) PT INR APTT D-Dimer Heparin Anti-Xa Level 0.17 L POC ABG pH POC ABG pCO2 POC ABG pO2 Sodium 146 H Potassium 3.0 L Chloride 110.6 H Carbon Dioxide BUN 64 H Creatinine 2.2 H Glucose 231 H POC Glucose Lactic Acid Calcium 7.1 L Magnesium AST Alkaline Phosphatase Total Creatine Kinase CK-MB (CK-2) Troponin T C-Reactive Protein Total Protein Albumin Cholesterol LDL Cholesterol Direct HDL Cholesterol Free T4 Urine WBC (Auto) Urine Creatinine Urine Total Protein Crossmatch 08/15/18 08/15/18 08/15/18 05:21 05:26 06:35 WBC RBC Hgb Hct MCV MCH MCHC RDW Lymph % (Auto) [place] % (Auto) Eos % (Auto) Lymph # [place] # Eos # Seg Neutrophils % Lymphocytes % (Manual) Seg Neutrophils # Lymphocytes # (Manual) PT INR APTT 79.0 H* D-Dimer Heparin Anti-Xa Level POC ABG pH 7.494 H POC ABG pCO2 POC ABG pO2 155 H Sodium Potassium Chloride Carbon Dioxide BUN Creatinine Glucose POC Glucose 271 H Lactic Acid Calcium Magnesium AST Alkaline Phosphatase Total Creatine Kinase CK-MB (CK-2) Troponin T C-Reactive Protein Total Protein Albumin Cholesterol LDL Cholesterol Direct HDL Cholesterol Free T4 Urine WBC (Auto) Urine Creatinine Urine Total Protein Crossmatch 08/15/18 08/15/18 08/15/18 12:10 15:31 17:27 WBC RBC Hgb Hct MCV MCH MCHC RDW Lymph % (Auto) [place] % (Auto) Eos % (Auto) Lymph # [place] # Eos # Seg Neutrophils % Lymphocytes % (Manual) Seg Neutrophils # Lymphocytes # (Manual) PT INR APTT D-Dimer Heparin Anti-Xa Level POC ABG pH POC ABG pCO2 POC ABG pO2 Sodium Potassium Chloride Carbon Dioxide BUN Creatinine Glucose POC Glucose 301 H 287 H Lactic Acid Calcium Magnesium AST Alkaline Phosphatase Total Creatine Kinase CK-MB (CK-2) Troponin T C-Reactive Protein Total Protein Albumin Cholesterol LDL Cholesterol Direct HDL Cholesterol Free T4 Urine WBC (Auto) Urine Creatinine Urine Total Protein Crossmatch See Detail 08/15/18 08/15/18 08/16/18 21:41 23:45 04:13 WBC RBC Hgb Hct MCV MCH MCHC RDW Lymph % (Auto) [place] % (Auto) Eos % (Auto) Lymph # [place] # Eos # Seg Neutrophils % Lymphocytes % (Manual) Seg Neutrophils # Lymphocytes # (Manual) PT INR APTT D-Dimer Heparin Anti-Xa Level 0.19 L POC ABG pH POC ABG pCO2 32.1 L POC ABG pO2 107 H Sodium Potassium Chloride Carbon Dioxide BUN Creatinine Glucose POC Glucose 163 H Lactic Acid Calcium Magnesium AST Alkaline Phosphatase Total Creatine Kinase CK-MB (CK-2) Troponin T C-Reactive Protein Total Protein Albumin Cholesterol LDL Cholesterol Direct HDL Cholesterol Free T4 Urine WBC (Auto) Urine Creatinine Urine Total Protein Crossmatch 08/16/18 08/16/18 08/16/18 04:50 05:28 11:30 WBC RBC 2.67 L Hgb 8.1 L Hct 23.4 L MCV MCH MCHC 35 H RDW 18.3 H Lymph % (Auto) [place] % (Auto) Eos % (Auto) Lymph # [place] # Eos # Seg Neutrophils % Lymphocytes % (Manual) Seg Neutrophils # Lymphocytes # (Manual) PT INR APTT D-Dimer Heparin Anti-Xa Level 0.19 L POC ABG pH POC ABG pCO2 POC ABG pO2 Sodium Potassium Chloride Carbon Dioxide BUN Creatinine Glucose POC Glucose 141 H Lactic Acid Calcium Magnesium AST Alkaline Phosphatase Total Creatine Kinase CK-MB (CK-2) Troponin T C-Reactive Protein Total Protein Albumin Cholesterol LDL Cholesterol Direct HDL Cholesterol Free T4 Urine WBC (Auto) Urine Creatinine Urine Total Protein Crossmatch 08/16/18 08/16/18 08/16/18 11:30 12:00 12:01 WBC RBC Hgb Hct MCV MCH MCHC RDW Lymph % (Auto) [place] % (Auto) Eos % (Auto) Lymph # [place] # Eos # Seg Neutrophils % Lymphocytes % (Manual) Seg Neutrophils # Lymphocytes # (Manual) PT INR APTT D-Dimer Heparin Anti-Xa Level 0.15 L POC ABG pH POC ABG pCO2 POC ABG pO2 Sodium Potassium Chloride 107.8 H Carbon Dioxide 21 L BUN 47 H Creatinine 1.6 H Glucose 221 H POC Glucose 267 H Lactic Acid Calcium 6.9 L Magnesium AST Alkaline Phosphatase Total Creatine Kinase CK-MB (CK-2) Troponin T C-Reactive Protein Total Protein Albumin Cholesterol LDL Cholesterol Direct HDL Cholesterol Free T4 Urine WBC (Auto) Urine Creatinine Urine Total Protein Crossmatch 08/16/18 08/16/18 08/16/18 17:23 20:01 23:13 WBC RBC Hgb Hct MCV MCH MCHC RDW Lymph % (Auto) [place] % (Auto) Eos % (Auto) Lymph # [place] # Eos # Seg Neutrophils % Lymphocytes % (Manual) Seg Neutrophils # Lymphocytes # (Manual) PT INR APTT D-Dimer Heparin Anti-Xa Level 0.26 L POC ABG pH POC ABG pCO2 POC ABG pO2 Sodium Potassium Chloride Carbon Dioxide BUN Creatinine Glucose POC Glucose 245 H 256 H Lactic Acid Calcium Magnesium AST Alkaline Phosphatase Total Creatine Kinase CK-MB (CK-2) Troponin T C-Reactive Protein Total Protein Albumin Cholesterol LDL Cholesterol Direct HDL Cholesterol Free T4 Urine WBC (Auto) Urine Creatinine Urine Total Protein Crossmatch 08/17/18 08/17/18 08/17/18 04:29 04:55 05:34 WBC RBC Hgb 8.2 L Hct 24.3 L MCV MCH MCHC RDW Lymph % (Auto) [place] % (Auto) Eos % (Auto) Lymph # [place] # Eos # Seg Neutrophils % Lymphocytes % (Manual) Seg Neutrophils # Lymphocytes # (Manual) PT INR APTT D-Dimer Heparin Anti-Xa Level POC ABG pH POC ABG pCO2 32.4 L POC ABG pO2 108 H Sodium Potassium Chloride Carbon Dioxide BUN Creatinine Glucose POC Glucose 268 H Lactic Acid Calcium Magnesium AST Alkaline Phosphatase Total Creatine Kinase CK-MB (CK-2) Troponin T C-Reactive Protein Total Protein Albumin Cholesterol LDL Cholesterol Direct HDL Cholesterol Free T4 Urine WBC (Auto) Urine Creatinine Urine Total Protein Crossmatch 08/17/18 08/17/18 08/17/18 11:54 13:44 17:24 WBC RBC Hgb Hct MCV MCH MCHC RDW Lymph % (Auto) [place] % (Auto) Eos % (Auto) Lymph # [place] # Eos # Seg Neutrophils % Lymphocytes % (Manual) Seg Neutrophils # Lymphocytes # (Manual) PT INR APTT D-Dimer Heparin Anti-Xa Level POC ABG pH POC ABG pCO2 32.7 L POC ABG pO2 142 H Sodium Potassium Chloride Carbon Dioxide BUN Creatinine Glucose POC Glucose 295 H 283 H Lactic Acid Calcium Magnesium AST Alkaline Phosphatase Total Creatine Kinase CK-MB (CK-2) Troponin T C-Reactive Protein Total Protein Albumin Cholesterol LDL Cholesterol Direct HDL Cholesterol Free T4 Urine WBC (Auto) Urine Creatinine Urine Total Protein Crossmatch 08/18/18 08/18/18 08/18/18 00:05 00:59 04:15 WBC RBC Hgb Hct MCV MCH MCHC RDW Lymph % (Auto) [place] % (Auto) Eos % (Auto) Lymph # [place] # Eos # Seg Neutrophils % Lymphocytes % (Manual) Seg Neutrophils # Lymphocytes # (Manual) PT INR APTT D-Dimer Heparin Anti-Xa Level POC ABG pH POC ABG pCO2 POC ABG pO2 115 H Sodium Potassium Chloride Carbon Dioxide BUN Creatinine Glucose POC Glucose 247 H 251 H Lactic Acid Calcium Magnesium AST Alkaline Phosphatase Total Creatine Kinase CK-MB (CK-2) Troponin T C-Reactive Protein Total Protein Albumin Cholesterol LDL Cholesterol Direct HDL Cholesterol Free T4 Urine WBC (Auto) Urine Creatinine Urine Total Protein Crossmatch 08/18/18 08/18/18 08/18/18 05:02 12:20 17:51 WBC RBC Hgb Hct MCV MCH MCHC RDW Lymph % (Auto) [place] % (Auto) Eos % (Auto) Lymph # [place] # Eos # Seg Neutrophils % Lymphocytes % (Manual) Seg Neutrophils # Lymphocytes # (Manual) PT INR APTT D-Dimer Heparin Anti-Xa Level POC ABG pH POC ABG pCO2 POC ABG pO2 Sodium Potassium Chloride Carbon Dioxide BUN Creatinine Glucose POC Glucose 282 H 209 H 261 H Lactic Acid Calcium Magnesium AST Alkaline Phosphatase Total Creatine Kinase CK-MB (CK-2) Troponin T C-Reactive Protein Total Protein Albumin Cholesterol LDL Cholesterol Direct HDL Cholesterol Free T4 Urine WBC (Auto) Urine Creatinine Urine Total Protein Crossmatch 08/18/18 08/19/18 08/19/18 23:30 04:54 05:16 WBC RBC 2.62 L Hgb 7.5 L Hct 23.1 L MCV MCH MCHC RDW 18.1 H Lymph % (Auto) [place] % (Auto) Eos % (Auto) Lymph # [place] # Eos # Seg Neutrophils % Lymphocytes % (Manual) Seg Neutrophils # Lymphocytes # (Manual) PT INR APTT D-Dimer Heparin Anti-Xa Level POC ABG pH POC ABG pCO2 POC ABG pO2 58 L Sodium Potassium Chloride Carbon Dioxide BUN Creatinine Glucose POC Glucose 231 H Lactic Acid Calcium Magnesium AST Alkaline Phosphatase Total Creatine Kinase CK-MB (CK-2) Troponin T C-Reactive Protein Total Protein Albumin Cholesterol LDL Cholesterol Direct HDL Cholesterol Free T4 Urine WBC (Auto) Urine Creatinine Urine Total Protein Crossmatch 08/19/18 08/19/18 08/19/18 05:16 05:40 11:56 WBC RBC Hgb Hct MCV MCH MCHC RDW Lymph % (Auto) [place] % (Auto) Eos % (Auto) Lymph # [place] # Eos # Seg Neutrophils % Lymphocytes % (Manual) Seg Neutrophils # Lymphocytes # (Manual) PT INR APTT D-Dimer Heparin Anti-Xa Level POC ABG pH POC ABG pCO2 POC ABG pO2 Sodium 152 H D Potassium Chloride 118.7 H Carbon Dioxide BUN 38 H Creatinine Glucose 220 H POC Glucose 227 H 213 H Lactic Acid Calcium 8.1 L D Magnesium AST Alkaline Phosphatase Total Creatine Kinase CK-MB (CK-2) Troponin T C-Reactive Protein Total Protein Albumin Cholesterol LDL Cholesterol Direct HDL Cholesterol Free T4 Urine WBC (Auto) Urine Creatinine Urine Total Protein Crossmatch 08/19/18 08/19/18 08/20/18 18:37 23:32 04:38 WBC RBC Hgb Hct MCV MCH MCHC RDW Lymph % (Auto) [place] % (Auto) Eos % (Auto) Lymph # [place] # Eos # Seg Neutrophils % Lymphocytes % (Manual) Seg Neutrophils # Lymphocytes # (Manual) PT INR APTT D-Dimer Heparin Anti-Xa Level POC ABG pH POC ABG pCO2 POC ABG pO2 140 H Sodium Potassium Chloride Carbon Dioxide BUN Creatinine Glucose POC Glucose 227 H 245 H Lactic Acid Calcium Magnesium AST Alkaline Phosphatase Total Creatine Kinase CK-MB (CK-2) Troponin T C-Reactive Protein Total Protein Albumin Cholesterol LDL Cholesterol Direct HDL Cholesterol Free T4 Urine WBC (Auto) Urine Creatinine Urine Total Protein Crossmatch 08/20/18 08/20/18 08/20/18 05:31 05:37 05:37 WBC RBC 2.60 L Hgb 7.5 L Hct 22.9 L MCV MCH MCHC RDW 18.4 H Lymph % (Auto) [place] % (Auto) Eos % (Auto) Lymph # [place] # Eos # Seg Neutrophils % Lymphocytes % (Manual) Seg Neutrophils # Lymphocytes # (Manual) PT INR APTT D-Dimer Heparin Anti-Xa Level POC ABG pH POC ABG pCO2 POC ABG pO2 Sodium 150 H Potassium Chloride 115.6 H Carbon Dioxide BUN 38 H Creatinine Glucose 276 H POC Glucose 266 H Lactic Acid Calcium 7.9 L Magnesium AST Alkaline Phosphatase Total Creatine Kinase CK-MB (CK-2) Troponin T C-Reactive Protein Total Protein Albumin Cholesterol LDL Cholesterol Direct HDL Cholesterol Free T4 Urine WBC (Auto) Urine Creatinine Urine Total Protein Crossmatch 08/20/18 08/20/18 08/20/18 14:01 18:20 23:11 WBC RBC Hgb Hct MCV MCH MCHC RDW Lymph % (Auto) [place] % (Auto) Eos % (Auto) Lymph # [place] # Eos # Seg Neutrophils % Lymphocytes % (Manual) Seg Neutrophils # Lymphocytes # (Manual) PT INR APTT D-Dimer Heparin Anti-Xa Level POC ABG pH POC ABG pCO2 POC ABG pO2 Sodium Potassium Chloride Carbon Dioxide BUN Creatinine Glucose POC Glucose 305 H 271 H 218 H Lactic Acid Calcium Magnesium AST Alkaline Phosphatase Total Creatine Kinase CK-MB (CK-2) Troponin T C-Reactive Protein Total Protein Albumin Cholesterol LDL Cholesterol Direct HDL Cholesterol Free T4 Urine WBC (Auto) Urine Creatinine Urine Total Protein Crossmatch 08/21/18 08/21/18 08/21/18 04:41 04:41 06:20 WBC RBC 2.65 L Hgb 7.6 L Hct 23.3 L MCV MCH MCHC RDW 19.1 H Lymph % (Auto) [place] % (Auto) Eos % (Auto) Lymph # [place] # Eos # Seg Neutrophils % Lymphocytes % (Manual) Seg Neutrophils # Lymphocytes # (Manual) PT INR APTT D-Dimer Heparin Anti-Xa Level POC ABG pH POC ABG pCO2 POC ABG pO2 Sodium 150 H Potassium Chloride 117.8 H Carbon Dioxide BUN 37 H Creatinine Glucose 233 H POC Glucose 262 H Lactic Acid Calcium 7.9 L Magnesium AST Alkaline Phosphatase Total Creatine Kinase CK-MB (CK-2) Troponin T C-Reactive Protein Total Protein Albumin Cholesterol LDL Cholesterol Direct HDL Cholesterol Free T4 Urine WBC (Auto) Urine Creatinine Urine Total Protein Crossmatch 08/21/18 08/21/18 08/21/18 10:18 12:04 12:36 WBC RBC Hgb Hct MCV MCH MCHC RDW Lymph % (Auto) [place] % (Auto) Eos % (Auto) Lymph # [place] # Eos # Seg Neutrophils % Lymphocytes % (Manual) Seg Neutrophils # Lymphocytes # (Manual) PT INR APTT D-Dimer Heparin Anti-Xa Level POC ABG pH POC ABG pCO2 POC ABG pO2 Sodium Potassium Chloride Carbon Dioxide BUN Creatinine Glucose POC Glucose 256 H 245 H 255 H Lactic Acid Calcium Magnesium AST Alkaline Phosphatase Total Creatine Kinase CK-MB (CK-2) Troponin T C-Reactive Protein Total Protein Albumin Cholesterol LDL Cholesterol Direct HDL Cholesterol Free T4 Urine WBC (Auto) Urine Creatinine Urine Total Protein Crossmatch 08/21/18 08/21/18 08/22/18 17:36 23:29 05:01 WBC RBC Hgb Hct MCV MCH MCHC RDW Lymph % (Auto) [place] % (Auto) Eos % (Auto) Lymph # [place] # Eos # Seg Neutrophils % Lymphocytes % (Manual) Seg Neutrophils # Lymphocytes # (Manual) PT INR APTT D-Dimer Heparin Anti-Xa Level POC ABG pH 7.466 H POC ABG pCO2 33.8 L POC ABG pO2 111 H Sodium Potassium Chloride Carbon Dioxide BUN Creatinine Glucose POC Glucose 263 H 268 H Lactic Acid Calcium Magnesium AST Alkaline Phosphatase Total Creatine Kinase CK-MB (CK-2) Troponin T C-Reactive Protein Total Protein Albumin Cholesterol LDL Cholesterol Direct HDL Cholesterol Free T4 Urine WBC (Auto) Urine Creatinine Urine Total Protein Crossmatch 08/22/18 08/22/18 08/22/18 05:05 12:05 12:15 WBC RBC Hgb Hct MCV MCH MCHC RDW Lymph % (Auto) [place] % (Auto) Eos % (Auto) Lymph # [place] # Eos # Seg Neutrophils % Lymphocytes % (Manual) Seg Neutrophils # Lymphocytes # (Manual) PT INR APTT D-Dimer Heparin Anti-Xa Level POC ABG pH POC ABG pCO2 POC ABG pO2 Sodium 147 H Potassium Chloride 113.2 H Carbon Dioxide BUN 36 H Creatinine Glucose 249 H POC Glucose 256 H 228 H Lactic Acid Calcium 8.2 L Magnesium AST Alkaline Phosphatase Total Creatine Kinase CK-MB (CK-2) Troponin T C-Reactive Protein Total Protein Albumin Cholesterol LDL Cholesterol Direct HDL Cholesterol Free T4 Urine WBC (Auto) Urine Creatinine Urine Total Protein Crossmatch 08/22/18 08/23/18 08/23/18 17:30 00:03 05:05 WBC RBC Hgb Hct MCV MCH MCHC RDW Lymph % (Auto) [place] % (Auto) Eos % (Auto) Lymph # [place] # Eos # Seg Neutrophils % Lymphocytes % (Manual) Seg Neutrophils # Lymphocytes # (Manual) PT INR APTT D-Dimer Heparin Anti-Xa Level POC ABG pH POC ABG pCO2 POC ABG pO2 Sodium Potassium Chloride Carbon Dioxide BUN Creatinine Glucose POC Glucose 291 H 259 H 247 H Lactic Acid Calcium Magnesium AST Alkaline Phosphatase Total Creatine Kinase CK-MB (CK-2) Troponin T C-Reactive Protein Total Protein Albumin Cholesterol LDL Cholesterol Direct HDL Cholesterol Free T4 Urine WBC (Auto) Urine Creatinine Urine Total Protein Crossmatch 08/23/18 08/23/18 08/23/18 05:14 12:29 17:21 WBC RBC Hgb Hct MCV MCH MCHC RDW Lymph % (Auto) [place] % (Auto) Eos % (Auto) Lymph # [place] # Eos # Seg Neutrophils % Lymphocytes % (Manual) Seg Neutrophils # Lymphocytes # (Manual) PT INR APTT D-Dimer Heparin Anti-Xa Level POC ABG pH POC ABG pCO2 POC ABG pO2 Sodium Potassium Chloride Carbon Dioxide BUN Creatinine Glucose POC Glucose 208 H 138 H 175 H Lactic Acid Calcium Magnesium AST Alkaline Phosphatase Total Creatine Kinase CK-MB (CK-2) Troponin T C-Reactive Protein Total Protein Albumin Cholesterol LDL Cholesterol Direct HDL Cholesterol Free T4 Urine WBC (Auto) Urine Creatinine Urine Total Protein Crossmatch 08/23/18 08/24/18 08/24/18 23:36 01:00 05:50 WBC RBC 2.92 L 2.90 L Hgb 8.3 L 8.2 L Hct 25.4 L 25.2 L MCV MCH MCHC RDW 18.9 H 18.6 H Lymph % (Auto) [place] % (Auto) 9.2 H Eos % (Auto) Lymph # [place] # Eos # Seg Neutrophils % Lymphocytes % (Manual) Seg Neutrophils # Lymphocytes # (Manual) PT INR APTT D-Dimer Heparin Anti-Xa Level POC ABG pH POC ABG pCO2 POC ABG pO2 Sodium Potassium Chloride Carbon Dioxide BUN Creatinine Glucose POC Glucose 163 H Lactic Acid Calcium Magnesium AST Alkaline Phosphatase Total Creatine Kinase CK-MB (CK-2) Troponin T C-Reactive Protein Total Protein Albumin Cholesterol LDL Cholesterol Direct HDL Cholesterol Free T4 Urine WBC (Auto) Urine Creatinine Urine Total Protein Crossmatch 08/24/18 08/24/18 08/24/18 05:50 12:26 18:37 WBC RBC Hgb Hct MCV MCH MCHC RDW Lymph % (Auto) [place] % (Auto) Eos % (Auto) Lymph # [place] # Eos # Seg Neutrophils % Lymphocytes % (Manual) Seg Neutrophils # Lymphocytes # (Manual) PT INR APTT D-Dimer Heparin Anti-Xa Level POC ABG pH POC ABG pCO2 POC ABG pO2 Sodium 147 H Potassium Chloride 113.6 H Carbon Dioxide BUN 33 H Creatinine Glucose 210 H POC Glucose 223 H 166 H Lactic Acid Calcium 8.3 L Magnesium AST Alkaline Phosphatase Total Creatine Kinase CK-MB (CK-2) Troponin T C-Reactive Protein Total Protein Albumin Cholesterol LDL Cholesterol Direct HDL Cholesterol Free T4 Urine WBC (Auto) Urine Creatinine Urine Total Protein Crossmatch 08/24/18 08/25/18 08/25/18 23:47 04:55 04:55 WBC RBC 2.94 L Hgb 8.4 L Hct 25.1 L MCV MCH MCHC RDW 18.2 H Lymph % (Auto) [place] % (Auto) Eos % (Auto) Lymph # [place] # Eos # Seg Neutrophils % Lymphocytes % (Manual) Seg Neutrophils # Lymphocytes # (Manual) PT INR APTT D-Dimer Heparin Anti-Xa Level POC ABG pH POC ABG pCO2 POC ABG pO2 Sodium Potassium Chloride 110.2 H Carbon Dioxide BUN 30 H Creatinine Glucose POC Glucose 126 H Lactic Acid Calcium 8.1 L Magnesium AST Alkaline Phosphatase Total Creatine Kinase CK-MB (CK-2) Troponin T C-Reactive Protein Total Protein Albumin Cholesterol LDL Cholesterol Direct HDL Cholesterol Free T4 Urine WBC (Auto) Urine Creatinine Urine Total Protein Crossmatch 08/25/18 08/26/18 08/26/18 12:40 04:39 04:39 WBC RBC 2.96 L Hgb 8.3 L Hct 25.7 L MCV MCH MCHC RDW 18.2 H Lymph % (Auto) 10.5 L [place] % (Auto) 9.3 H Eos % (Auto) Lymph # 0.8 L [place] # Eos # Seg Neutrophils % 77.0 H Lymphocytes % (Manual) Seg Neutrophils # Lymphocytes # (Manual) PT INR APTT D-Dimer Heparin Anti-Xa Level POC ABG pH POC ABG pCO2 POC ABG pO2 Sodium 147 H Potassium Chloride 113.5 H Carbon Dioxide BUN 27 H Creatinine 0.7 L Glucose 106 H POC Glucose Lactic Acid Calcium 8.0 L Magnesium AST Alkaline Phosphatase Total Creatine Kinase CK-MB (CK-2) Troponin T C-Reactive Protein Total Protein Albumin Cholesterol LDL Cholesterol Direct HDL Cholesterol Free T4 Urine WBC (Auto) > 182.0 H Urine Creatinine Urine Total Protein Crossmatch 08/26/18 08/26/18 08/26/18 05:27 09:00 09:54 WBC RBC Hgb Hct MCV MCH MCHC RDW Lymph % (Auto) [place] % (Auto) Eos % (Auto) Lymph # [place] # Eos # Seg Neutrophils % Lymphocytes % (Manual) Seg Neutrophils # Lymphocytes # (Manual) PT INR APTT D-Dimer Heparin Anti-Xa Level POC ABG pH POC ABG pCO2 POC ABG pO2 Sodium Potassium Chloride Carbon Dioxide BUN Creatinine Glucose POC Glucose 120 H 170 H Lactic Acid Calcium Magnesium AST Alkaline Phosphatase Total Creatine Kinase CK-MB (CK-2) Troponin T C-Reactive Protein Total Protein Albumin Cholesterol LDL Cholesterol Direct HDL Cholesterol Free T4 0.51 L Urine WBC (Auto) Urine Creatinine Urine Total Protein Crossmatch 08/26/18 08/26/18 08/27/18 14:52 17:50 06:30 WBC RBC Hgb Hct MCV MCH MCHC RDW Lymph % (Auto) [place] % (Auto) Eos % (Auto) Lymph # [place] # Eos # Seg Neutrophils % Lymphocytes % (Manual) Seg Neutrophils # Lymphocytes # (Manual) PT INR APTT D-Dimer Heparin Anti-Xa Level POC ABG pH POC ABG pCO2 POC ABG pO2 Sodium 150 H Potassium Chloride 114.8 H Carbon Dioxide BUN 24 H Creatinine 0.7 L Glucose 131 H POC Glucose 166 H 107 H Lactic Acid Calcium 7.8 L Magnesium AST Alkaline Phosphatase Total Creatine Kinase CK-MB (CK-2) Troponin T C-Reactive Protein Total Protein Albumin Cholesterol LDL Cholesterol Direct HDL Cholesterol Free T4 Urine WBC (Auto) Urine Creatinine Urine Total Protein Crossmatch 08/27/18 08/27/18 08/27/18 08:22 14:20 16:06 WBC RBC Hgb Hct MCV MCH MCHC RDW Lymph % (Auto) [place] % (Auto) Eos % (Auto) Lymph # [place] # Eos # Seg Neutrophils % Lymphocytes % (Manual) Seg Neutrophils # Lymphocytes # (Manual) PT INR APTT D-Dimer Heparin Anti-Xa Level POC ABG pH POC ABG pCO2 POC ABG pO2 Sodium Potassium Chloride Carbon Dioxide BUN Creatinine Glucose POC Glucose 112 H 151 H 158 H Lactic Acid Calcium Magnesium AST Alkaline Phosphatase Total Creatine Kinase CK-MB (CK-2) Troponin T C-Reactive Protein Total Protein Albumin Cholesterol LDL Cholesterol Direct HDL Cholesterol Free T4 Urine WBC (Auto) Urine Creatinine Urine Total Protein Crossmatch 08/27/18 08/27/18 08/28/18 20:09 21:25 02:03 WBC RBC Hgb Hct MCV MCH MCHC RDW Lymph % (Auto) [place] % (Auto) Eos % (Auto) Lymph # [place] # Eos # Seg Neutrophils % Lymphocytes % (Manual) Seg Neutrophils # Lymphocytes # (Manual) PT INR APTT D-Dimer Heparin Anti-Xa Level POC ABG pH POC ABG pCO2 POC ABG pO2 130 H Sodium Potassium Chloride Carbon Dioxide BUN Creatinine Glucose POC Glucose 226 H 250 H Lactic Acid Calcium Magnesium AST Alkaline Phosphatase Total Creatine Kinase CK-MB (CK-2) Troponin T C-Reactive Protein Total Protein Albumin Cholesterol LDL Cholesterol Direct HDL Cholesterol Free T4 Urine WBC (Auto) Urine Creatinine Urine Total Protein Crossmatch 08/28/18 08/28/18 08/28/18 05:56 07:15 13:17 WBC RBC Hgb Hct MCV MCH MCHC RDW Lymph % (Auto) [place] % (Auto) Eos % (Auto) Lymph # [place] # Eos # Seg Neutrophils % Lymphocytes % (Manual) Seg Neutrophils # Lymphocytes # (Manual) PT INR APTT D-Dimer Heparin Anti-Xa Level POC ABG pH POC ABG pCO2 POC ABG pO2 Sodium Potassium Chloride Carbon Dioxide BUN Creatinine Glucose 198 H POC Glucose 221 H 188 H Lactic Acid Calcium 7.7 L Magnesium AST Alkaline Phosphatase Total Creatine Kinase CK-MB (CK-2) Troponin T C-Reactive Protein Total Protein Albumin Cholesterol LDL Cholesterol Direct HDL Cholesterol Free T4 Urine WBC (Auto) Urine Creatinine Urine Total Protein Crossmatch 08/28/18 08/28/18 08/28/18 15:53 18:12 22:35 WBC RBC Hgb Hct MCV MCH MCHC RDW Lymph % (Auto) [place] % (Auto) Eos % (Auto) Lymph # [place] # Eos # Seg Neutrophils % Lymphocytes % (Manual) Seg Neutrophils # Lymphocytes # (Manual) PT INR APTT D-Dimer Heparin Anti-Xa Level POC ABG pH 7.457 H POC ABG pCO2 POC ABG pO2 Sodium Potassium Chloride Carbon Dioxide BUN Creatinine Glucose POC Glucose 197 H 225 H Lactic Acid Calcium Magnesium AST Alkaline Phosphatase Total Creatine Kinase CK-MB (CK-2) Troponin T C-Reactive Protein Total Protein Albumin Cholesterol LDL Cholesterol Direct HDL Cholesterol Free T4 Urine WBC (Auto) Urine Creatinine Urine Total Protein Crossmatch 08/29/18 08/29/18 08/29/18 03:04 10:47 14:25 WBC RBC Hgb Hct MCV MCH MCHC RDW Lymph % (Auto) [place] % (Auto) Eos % (Auto) Lymph # [place] # Eos # Seg Neutrophils % Lymphocytes % (Manual) Seg Neutrophils # Lymphocytes # (Manual) PT INR APTT D-Dimer Heparin Anti-Xa Level POC ABG pH POC ABG pCO2 POC ABG pO2 Sodium Potassium Chloride Carbon Dioxide BUN Creatinine Glucose POC Glucose 223 H 371 H 266 H Lactic Acid Calcium Magnesium AST Alkaline Phosphatase Total Creatine Kinase CK-MB (CK-2) Troponin T C-Reactive Protein Total Protein Albumin Cholesterol LDL Cholesterol Direct HDL Cholesterol Free T4 Urine WBC (Auto) Urine Creatinine Urine Total Protein Crossmatch 08/29/18 08/29/18 08/29/18 16:45 17:36 21:33 WBC RBC Hgb Hct MCV MCH MCHC RDW Lymph % (Auto) [place] % (Auto) Eos % (Auto) Lymph # [place] # Eos # Seg Neutrophils % Lymphocytes % (Manual) Seg Neutrophils # Lymphocytes # (Manual) PT INR APTT D-Dimer Heparin Anti-Xa Level POC ABG pH POC ABG pCO2 POC ABG pO2 118 H Sodium Potassium Chloride Carbon Dioxide BUN Creatinine Glucose POC Glucose 253 H 204 H Lactic Acid Calcium Magnesium AST Alkaline Phosphatase Total Creatine Kinase CK-MB (CK-2) Troponin T C-Reactive Protein Total Protein Albumin Cholesterol LDL Cholesterol Direct HDL Cholesterol Free T4 Urine WBC (Auto) Urine Creatinine Urine Total Protein Crossmatch 08/30/18 08/30/18 08/30/18 01:33 05:27 05:40 WBC RBC 3.12 L Hgb 8.5 L Hct 25.9 L MCV 83 L MCH 27 L MCHC RDW 18.3 H Lymph % (Auto) [place] % (Auto) 7.8 H Eos % (Auto) 8.8 H Lymph # [place] # Eos # 0.6 H Seg Neutrophils % Lymphocytes % (Manual) Seg Neutrophils # Lymphocytes # (Manual) PT INR APTT D-Dimer Heparin Anti-Xa Level POC ABG pH POC ABG pCO2 POC ABG pO2 Sodium Potassium Chloride Carbon Dioxide BUN Creatinine Glucose POC Glucose 157 H 178 H Lactic Acid Calcium Magnesium AST Alkaline Phosphatase Total Creatine Kinase CK-MB (CK-2) Troponin T C-Reactive Protein Total Protein Albumin Cholesterol LDL Cholesterol Direct HDL Cholesterol Free T4 Urine WBC (Auto) Urine Creatinine Urine Total Protein Crossmatch 08/30/18 08/30/18 08/30/18 05:40 09:28 11:41 WBC RBC Hgb Hct MCV MCH MCHC RDW Lymph % (Auto) [place] % (Auto) Eos % (Auto) Lymph # [place] # Eos # Seg Neutrophils % Lymphocytes % (Manual) Seg Neutrophils # Lymphocytes # (Manual) PT INR APTT D-Dimer Heparin Anti-Xa Level POC ABG pH POC ABG pCO2 POC ABG pO2 Sodium Potassium Chloride Carbon Dioxide BUN Creatinine 0.7 L Glucose 189 H POC Glucose 216 H 257 H Lactic Acid Calcium 8.2 L Magnesium AST 50 H Alkaline Phosphatase 158 H Total Creatine Kinase CK-MB (CK-2) Troponin T C-Reactive Protein Total Protein Albumin 1.6 L Cholesterol LDL Cholesterol Direct HDL Cholesterol Free T4 Urine WBC (Auto) Urine Creatinine Urine Total Protein Crossmatch 08/30/18 08/30/18 08/30/18 14:34 17:07 21:56 WBC RBC Hgb Hct MCV MCH MCHC RDW Lymph % (Auto) [place] % (Auto) Eos % (Auto) Lymph # [place] # Eos # Seg Neutrophils % Lymphocytes % (Manual) Seg Neutrophils # Lymphocytes # (Manual) PT INR APTT D-Dimer Heparin Anti-Xa Level POC ABG pH POC ABG pCO2 POC ABG pO2 Sodium Potassium Chloride Carbon Dioxide BUN Creatinine Glucose POC Glucose 263 H 263 H 234 H Lactic Acid Calcium Magnesium AST Alkaline Phosphatase Total Creatine Kinase CK-MB (CK-2) Troponin T C-Reactive Protein Total Protein Albumin Cholesterol LDL Cholesterol Direct HDL Cholesterol Free T4 Urine WBC (Auto) Urine Creatinine Urine Total Protein Crossmatch 08/31/18 08/31/18 08/31/18 02:02 05:29 09:24 WBC RBC Hgb Hct MCV MCH MCHC RDW Lymph % (Auto) [place] % (Auto) Eos % (Auto) Lymph # [place] # Eos # Seg Neutrophils % Lymphocytes % (Manual) Seg Neutrophils # Lymphocytes # (Manual) PT INR APTT D-Dimer Heparin Anti-Xa Level POC ABG pH POC ABG pCO2 POC ABG pO2 Sodium Potassium Chloride Carbon Dioxide BUN Creatinine Glucose POC Glucose 151 H 156 H 107 H Lactic Acid Calcium Magnesium AST Alkaline Phosphatase Total Creatine Kinase CK-MB (CK-2) Troponin T C-Reactive Protein Total Protein Albumin Cholesterol LDL Cholesterol Direct HDL Cholesterol Free T4 Urine WBC (Auto) Urine Creatinine Urine Total Protein Crossmatch 08/31/18 08/31/18 08/31/18 13:51 17:28 21:40 WBC RBC Hgb Hct MCV MCH MCHC RDW Lymph % (Auto) [place] % (Auto) Eos % (Auto) Lymph # [place] # Eos # Seg Neutrophils % Lymphocytes % (Manual) Seg Neutrophils # Lymphocytes # (Manual) PT INR APTT D-Dimer Heparin Anti-Xa Level POC ABG pH POC ABG pCO2 POC ABG pO2 Sodium Potassium Chloride Carbon Dioxide BUN Creatinine Glucose POC Glucose 170 H 239 H 209 H Lactic Acid Calcium Magnesium AST Alkaline Phosphatase Total Creatine Kinase CK-MB (CK-2) Troponin T C-Reactive Protein Total Protein Albumin Cholesterol LDL Cholesterol Direct HDL Cholesterol Free T4 Urine WBC (Auto) Urine Creatinine Urine Total Protein Crossmatch 08/31/18 08/31/18 09/01/18 22:25 22:25 01:47 WBC RBC Hgb Hct MCV MCH MCHC RDW Lymph % (Auto) [place] % (Auto) Eos % (Auto) Lymph # [place] # Eos # Seg Neutrophils % Lymphocytes % (Manual) Seg Neutrophils # Lymphocytes # (Manual) PT INR APTT D-Dimer Heparin Anti-Xa Level POC ABG pH POC ABG pCO2 45.6 H POC ABG pO2 135 H Sodium Potassium Chloride Carbon Dioxide BUN Creatinine Glucose POC Glucose 208 H 223 H Lactic Acid Calcium Magnesium AST Alkaline Phosphatase Total Creatine Kinase CK-MB (CK-2) Troponin T C-Reactive Protein Total Protein Albumin Cholesterol LDL Cholesterol Direct HDL Cholesterol Free T4 Urine WBC (Auto) Urine Creatinine Urine Total Protein Crossmatch 09/01/18 09/01/18 09/01/18 05:18 05:19 05:19 WBC RBC 3.08 L Hgb 8.5 L Hct 25.6 L MCV 83 L MCH MCHC RDW 18.7 H Lymph % (Auto) [place] % (Auto) 7.9 H Eos % (Auto) 6.1 H Lymph # [place] # Eos # Seg Neutrophils % Lymphocytes % (Manual) Seg Neutrophils # Lymphocytes # (Manual) PT INR APTT D-Dimer Heparin Anti-Xa Level POC ABG pH POC ABG pCO2 POC ABG pO2 Sodium Potassium Chloride 107.9 H Carbon Dioxide BUN 21 H Creatinine 0.7 L Glucose 188 H POC Glucose 236 H Lactic Acid Calcium Magnesium AST Alkaline Phosphatase Total Creatine Kinase CK-MB (CK-2) Troponin T C-Reactive Protein Total Protein Albumin Cholesterol LDL Cholesterol Direct HDL Cholesterol Free T4 Urine WBC (Auto) Urine Creatinine Urine Total Protein Crossmatch 09/01/18 09:29 WBC RBC Hgb Hct MCV MCH MCHC RDW Lymph % (Auto) [place] % (Auto) Eos % (Auto) Lymph # [place] # Eos # Seg Neutrophils % Lymphocytes % (Manual) Seg Neutrophils # Lymphocytes # (Manual) PT INR APTT D-Dimer Heparin Anti-Xa Level POC ABG pH POC ABG pCO2 POC ABG pO2 Sodium Potassium Chloride Carbon Dioxide BUN Creatinine Glucose POC Glucose 231 H Lactic Acid Calcium Magnesium AST Alkaline Phosphatase Total Creatine Kinase CK-MB (CK-2) Troponin T C-Reactive Protein Total Protein Albumin Cholesterol LDL Cholesterol Direct HDL Cholesterol Free T4 Urine WBC (Auto) Urine Creatinine Urine Total Protein Crossmatch Allied health notes reviewed: nursing
[2018-09-01] MEDS ORDERED: LANTUS SUB-Q ONE (12:00)
[2018-09-01] MEDS: LOVENOX SUB-Q SCH (21:35)
[2018-09-01] MEDS: LANTUS SUB-Q SCH (21:38)
[2018-09-02] MEDS: HumaLOG SUB-Q SCH ×6 (03:43→21:27)
[2018-09-02] MEDS: APRESOLINE PO SCH ×4 (06:00→21:45)
[2018-09-02] MEDS ORDERED: APRESOLINE IV PRN (08:16)
--- NOTE | 2018-09-02 08:30 | Progress Note ---
Assessment and Plan Assessment and plan: Patient is a 77 yo man from [facility] with a history of respiratory failure, CVA with tracheostomy and Gtube who presented to [facility] ED following cardiac arrest after being found unresponsive at the intermediate. Time down is unknown per records. The patient is on the vent and unresponsive, all history is obtained from the chart. Patient had multiple episodes of arrest/pulselessness. He has been on the vent since then without any improvement. Per ER notes the patient was bagged via tracheostomy which continued to have low tidal volumes and so the patient with orally intubated after which tidal volumes improved. Initially, he went to [facility], [place] may 05 to june 05, he had fluid on brain and multiple strokes per family and they drained the fluid off the brain. The trach was placed at [facility] [place] and patient went to [facility], x 7 weeks (trach was changed where capped was placed), he was doing well, talking and sitting up. Then he went to [facility], August 03 Then on August 12, Friday, he had cardio-respiratory arrest. The [place] brain flow scan showed reduced blood flow. Patient had evaluation by neurology who reports patient with intact brainstem function. Cardiopulmonary arrest x 3: Supportive care, cardiology and Pulm were follwing. Cardiology now signed off. Acute on chronic respiratory failure Trach has been removed when patient was orally intubated, continue ventilator management per pulmonology. Tracheostomy was replaced by surgery on 08/25/18. Tracheostomy care, airway clearance, secretion management Right pneumothorax, resolved. Status post chest tube, mgt per pulmonology Anoxic encephalopathy: neurology consult appreciated, poor prognosis, poor likelihood of recovery, preserved brain stem function otherwise unresponsive. EEG is suggestive hypoxic encephalopathy. Hypertension. On Hydralazine 75 mg 3 times a day Hypernatremia, Continue free water via G-tube, s/p hypotonic IV solution, monitor bmp closely Acute kidney injury likely due to ATN Nephrology following, continue IV fluid, avoid renal toxic agents NSTEMI: treated with IV heparin, asa, statin, no bblocker due to bradycardia, hypotension, Cardiology was following Severe protein calorie malnutrition: Dietitian consulted, continue tube feedings UTI/sepsis: Continue antibiotics, follow-up urine cultures-->no growth x 48 hours Type 2 dm with persistent hyperglycemia: cont insulins and adjust according, on tube feedings Anemia: s/p transfusion Hypertensive urgency Start norvasc Increase Hydralazine to 100mg tid Hydralazine iv prn Urinary retention: DVT prophylaxis; On Lovenox Disposition. LTAC referral. Poor prognosis The high probability of a clinically significant, sudden or life threatening deterioration of the [neurology and respiratory] system(s) required my full and direct attention, intervention and personal management. The aggregate critical care time was [33] minutes. This time is in addition to time spent performing reported procedures but includes the following: [x] Data Review and interpretation [x] Patient assessment and monitoring of vital signs [x] Documentation History Interval history: Still intubated, on vent still unresponsive Hospitalist Physical - Physical exam Narrative exam: Gen: Not in acute distress, lying in bed, HEENT: Normocephalic, atraumatic Neck: supple, no JVD Heart: S1 and S2 reg, no murmurs, rubs or gallop Lungs: Clear, no crackles, no wheeze Abd: soft, non tender, non distended, normal BS Ext: Bilateral leg and feet ulcers, swelling, erythema,no clubbing, no cyanosis, Neuro: Awake,alert, oriented x 3, moves all ext, non focal Psych:Normal mood - Constitutional Vitals: Temp Pulse Resp BP Pulse Ox 98.6 F 68 15 186/69 100 09/02/18 08:00 09/02/18 08:01 09/02/18 08:01 09/02/18 08:01 09/02/18 08:01 General appearance: Present: other (twitching, nonresponsive, intubated) Results - Labs CBC & Chem 7: 09/01/18 05:19 09/01/18 05:19 Labs: Laboratory Last Values WBC 6.2 K/mm3 (4.5-11.0) 09/01/18 05:19 RBC 3.08 M/mm3 (3.65-5.03) L 09/01/18 05:19 Hgb 8.5 gm/dl (11.8-15.2) L 09/01/18 05:19 Hct 25.6 % (35.5-45.6) L 09/01/18 05:19 MCV 83 fl (84-94) L 09/01/18 05:19 MCH 28 pg (28-32) 09/01/18 05:19 MCHC 33 % (32-34) 09/01/18 05:19 RDW 18.7 % (13.2-15.2) H 09/01/18 05:19 Plt Count 259 K/mm3 (140-440) 09/01/18 05:19 Lymph % (Auto) 26.8 % (13.4-35.0) 09/01/18 05:19 Burt % (Auto) 7.9 % (0.0-7.3) H 09/01/18 05:19 Eos % (Auto) 6.1 % (0.0-4.3) H 09/01/18 05:19 Baso % (Auto) 0.7 % (0.0-1.8) 09/01/18 05:19 Lymph # 1.7 K/mm3 (1.2-5.4) 09/01/18 05:19 Burt # 0.5 K/mm3 (0.0-0.8) 09/01/18 05:19 Eos # 0.4 K/mm3 (0.0-0.4) 09/01/18 05:19 Baso # 0.0 K/mm3 (0.0-0.1) 09/01/18 05:19 Add Manual Diff Complete 08/12/18 21:44 Total Counted 100 08/12/18 21:44 Seg Neutrophils % 58.5 % (40.0-70.0) 09/01/18 05:19 Seg Neuts % (Manual) 44.0 % (40.0-70.0) 08/12/18 21:44 0 % 08/12/18 21:44 48.0 % (13.4-35.0) H 08/12/18 21:44 Reactive Lymphs % (Man) 0 % 08/12/18 21:44 2.0 % (0.0-7.3) 08/12/18 21:44 1.0 % (0.0-4.3) 08/12/18 21:44 0 % (0.0-1.8) 08/12/18 21:44 1.0 % 08/12/18 21:44 4.0 % 08/12/18 21:44 0 % 08/12/18 21:44 0 % 08/12/18 21:44 Nucleated RBC % Not Reportable 08/12/18 21:44 Seg Neutrophils # 3.6 K/mm3 (1.8-7.7) 09/01/18 05: Seg Neutrophils # Man 6.8 K/mm3 (1.8-7.7) 08/12/18 21:44 Band Neutrophils # 0.0 K/mm3 08/12/18 21:44 7.4 K/mm3 (1.2-5.4) H 08/12/18 21:44 Abs React Lymphs (Man) 0.0 K/mm3 08/12/18 21:44 0.3 K/mm3 (0.0-0.8) 08/12/18 21:44 0.2 K/mm3 (0.0-0.4) 08/12/18 21:44 0.0 K/mm3 (0.0-0.1) 08/12/18 21:44 0.2 K/mm3 08/12/18 21:44 0.6 K/mm3 08/12/18 21:44 0.0 K/mm3 08/12/18 21:44 Blast Cells # 0.0 K/mm3 08/12/18 21:44 WBC Morphology Not Reportable 08/12/18 21:44 Hypersegmented Neuts Not Reportable 08/12/18 21:44 Hyposegmented Neuts Not Reportable 08/12/18 21:44 Hypogranular Neuts Not Reportable 08/12/18 21:44 Not Reportable 08/12/18 21:44 Not Reportable 08/12/18 21:44 Not Reportable 08/12/18 21:44 Not Reportable 08/12/18 21:44 Not Reportable 08/12/18 21:44 Not Reportable 08/12/18 21:44 Consistent w auto 08/12/18 21:44 Not Reportable 08/12/18 21:44 Plt Clumps, EDTA Not Reportable 08/12/18 21:44 Not Reportable 08/12/18 21:44 Not Reportable 08/12/18 21:44 Not Reportable 08/12/18 21:44 Plt Morphology Comment Not Reportable 08/12/18 21:44 RBC Morphology Not Reportable 08/12/18 21:44 Dimorphic RBCs Not Reportable 08/12/18 21:44 Not Reportable 08/12/18 21:44 Not Reportable 08/12/18 21:44 Not Reportable 08/12/18 21:44 Few 08/12/18 21:44 Not Reportable 08/12/18 21:44 Not Reportable 08/12/18 21:44 Not Reportable 08/12/18 21:44 Not Reportable 08/12/18 21:44 Not Reportable 08/12/18 21:44 Not Reportable 08/12/18 21:44 Not Reportable 08/12/18 21:44 Few 08/12/18 21:44 Not Reportable 08/12/18 21:44 Not Reportable 08/12/18 21:44 Not Reportable 08/12/18 21:44 Not Reportable 08/12/18 21:44 Not Reportable 08/12/18 21:44 Not Reportable 08/12/18 21:44 Few 08/12/18 21:44 Acanthocytes (Spur) Not Reportable 08/12/18 21:44 Rouleaux Not Reportable 08/12/18 21:44 Not Reportable 08/12/18 21:44 Not Reportable 08/12/18 21:44 Not Reportable 08/12/18 21:44 Not Reportable 08/12/18 21:44 Hem Pathologist Commnt No 08/12/18 21:44 PT 16.5 Sec. (12.2-14.9) H 08/13/18 00:47 INR 1.25 (0.87-1.13) H 08/13/18 00:47 APTT 79.0 Sec. (24.2-36.6) H* 08/15/18 06:35 2742.50 ng/mlDDU (0-234) H 08/13/18 20:07 Heparin Anti-Xa Level 0.26 U.I./ml (0.3-0.7) L 08/16/18 20:01 POC ABG pH 7.389 (7.35-7.45) 08/31/18 22:25 POC ABG pCO2 45.6 (35-45) H 08/31/18 22:25 POC ABG pO2 135 (80-105) H 08/31/18 22:25 POC ABG HCO3 27.5 (22-26 mml/L) 08/31/18 22:25 POC ABG Total CO2 29 (23-27mmol/L) 08/31/18 22:25 POC ABG O2 Sat 99 08/31/18 22:25 POC ABG Base Excess 3 ((-2) - (+3)mmol/L) 08/31/18 22:25 28 % 08/31/18 22:25 Sodium 145 mmol/L (137-145) 09/01/18 05:19 Potassium 3.9 mmol/L (3.6-5.0) 09/01/18 05:19 Chloride 107.9 mmol/L (98-107) H 09/01/18 05:19 Carbon Dioxide 28 mmol/L (22-30) 09/01/18 05:19 13 mmol/L 09/01/18 05:19 BUN 21 mg/dL (9-20) H 09/01/18 05:19 0.7 mg/dL (0.8-1.5) L 09/01/18 05:19 Estimated GFR > 60 ml/min 09/01/18 05:19 30 % 09/01/18 05:19 Glucose 188 mg/dL (75-100) H 09/01/18 05:19 POC Glucose 183 (70-105) H 09/02/18 05:25 Lactic Acid 2.80 mmol/L (0.7-2.0) H* 08/13/18 12:53 Calcium 8.5 mg/dL (8.4-10.2) 09/01/18 05:19 Phosphorus 3.90 mg/dL (2.5-4.5) 08/15/18 04:05 Magnesium 2.20 mg/dL (1.7-2.3) 08/15/18 04:05 < 0.20 mg/dL (0.1-1.2) 08/30/18 05:40 AST 50 units/L (5-40) H 08/30/18 05:40 ALT 31 units/L (7-56) 08/30/18 05:40 158 units/L (35-129) H 08/30/18 05:40 309 units/L (55-170) H 08/13/18 10:10 CK-MB (CK-2) 4.1 ng/mL (0.0-4.0) H 08/13/18 10:10 CK-MB (CK-2) Rel Index 1.3 (0-4) 08/13/18 10:10 0.409 ng/mL (0.00-0.029) H* 08/14/18 04:03 16.90 mg/dL (0.00-1.30) H 08/13/18 12:53 6.4 g/dL (6.3-8.2) 08/30/18 05:40 1.6 g/dL (3.9-5) L 08/30/18 05:40 0.3 % 08/30/18 05:40 Triglycerides 62 mg/dL (2-149) 08/13/18 00:32 Cholesterol 46 mg/dL (50-199) L 08/13/18 00:32 17 mg/dL (50-130) L 08/13/18 00:32 6 mg/dL (40-59) L 08/13/18 00:32 7.66 % 08/13/18 00:32 TSH 0.973 mlU/mL (0.270-4.200) 08/26/18 09:00 Free T4 0.51 ng/dL (0.76-1.46) L 08/26/18 09:00 Yellow (Yellow) 08/25/18 12:40 Turbid (Clear) 08/25/18 12:40 7.0 (5.0-7.0) 08/25/18 12:40 Ur Specific [place] 1.009 (1.003-1.030) 08/25/18 12:40 100 mg/dl mg/dL (Negative) 08/25/18 12:40 Neg mg/dL (Negative) 08/25/18 12:40 Neg mg/dL (Negative) 08/25/18 12:40 Mod (Negative) 08/25/18 12:40 Neg (Negative) 08/25/18 12:40 Neg (Negative) 08/25/18 12:40 < 2.0 mg/dL (<2.0) 08/25/18 12:40 Ur Leukocyte Esterase Lg (Negative) 08/25/18 12:40 > 182.0 /HPF (0.0-6.0) H 08/25/18 12:40 10.0 /HPF (0.0-6.0) 08/25/18 12:40 U Epithel Cells (Auto) 5.0 /HPF (0-13.0) 08/25/18 12:40 2+ /HPF (Negative) 08/13/18 00:50 3+ /HPF 08/25/18 12:40 None seen (None Seen) 08/14/18 17:20 60.9 mg/dL (0.1-20.0) H 08/14/18 17:20 32 mmol/L 08/14/18 17:20 64 mg/dL (5-11.8) H 08/14/18 17:20 Presumptive negative 08/12/18 21:30 Presumptive negative 08/12/18 21:30 Ur Barbiturates Screen Presumptive negative 08/12/18 21:30 Ur Phencyclidine Scrn Presumptive negative 08/12/18 21:30 Ur Amphetamines Screen Presumptive negative 08/12/18 21:30 U Benzodiazepines Scrn Presumptive negative 08/12/18 21:30 Presumptive negative 08/12/18 21:30 U Marijuana (THC) Screen Presumptive negative 08/12/18 21:30 Disclamer 08/12/18 21:30 Blood Type O POSITIVE 08/15/18 15:31 Antibody Screen Negative 08/15/18 15:31 Crossmatch See Detail 08/15/18 15:31 Active Medications - Current Medications Current Medications: Generic Name Dose Route Start Last Admin Trade Name Freq PRN Reason Stop Dose Admin Acetaminophen 650 mg 08/13/18 11:40 08/13/18 16:09 Tylenol PO 650 mg Q6H PRN Administration Fever >101 Amlodipine Besylate 5 mg 09/02/18 10:00 Norvasc FEEDTUBE QDAY LENCHO Lipase/Protease/Amylase 1 each 08/25/18 18:36 Pancreazgenia Alas 10,500 Unit FEEDTUBE PRN PRN For Clogged Feeding Tube Aspirin 325 mg 08/17/18 10:00 09/01/18 11:04 Aspirin PO 325 mg QDAY LENCHO Administration Atorvastatin Calcium 40 mg 08/14/18 22:00 09/01/18 21:37 Lipitor PO 40 mg QHS LENCHO Administration Dextrose 50 ml 08/13/18 01:34 D50w (25gm) Syringe IV PRN PRN Hypoglycemia Enoxaparin Sodium 40 mg 08/17/18 22:00 09/01/18 21:35 Lovenox SUB-Q 40 mg QDAY@2200 LENCHO Administration Famotidine 20 mg 08/19/18 10:00 09/01/18 21:39 Pepcid PO 20 mg BID LENCHO Administration Hydralazine HCl 100 mg 09/02/18 09:00 Apresoline PO Q8HR LENCHO Hydralazine HCl 20 mg 09/02/18 08:16 Apresoline IV Q4HR PRN SBP>160 or DBP>110 Hydrophilic Ointment 1 applic 08/13/18 12:21 Vaseline Lip Therapy TP Q2HR PRN Dry Lips Insulin Glargine 15 units 09/01/18 22:00 09/01/18 21:38 Lantus SUB-Q 15 units QHS LENCHO Administration Insulin Human Lispro 0 unit 08/26/18 10:00 09/02/18 06:00 Humalog SUB-Q 2 unit Q4HR LENCHO Administration Protocol Levetiracetam 500 mg 08/27/18 22:00 09/01/18 21:35 Keppra PO 500 mg BID [facility] Administration Modafinil 100 mg 08/27/18 10:00 09/01/18 11:04 Provigil PO 100 mg QAM LENCHO Administration Multi-Ingred Cream/Lotion/Oil/Oint 1 applic 08/13/18 12:21 08/17/18 00:41 Artificial Tears Ophth Oint OU 1 applic Q4HR PRN Administration Dry Eye(s) Ondansetron HCl 4 mg 08/13/18 01:34 Zofran IV Q8H PRN Nausea And Vomiting Simple Syrup 15 ml 08/25/18 18:36 Simple Syrup FEEDTUBE PRN PRN Hypoglycemia Simple Syrup 30 ml 08/25/18 18:36 Simple Syrup FEEDTUBE PRN PRN Hypoglycemia Sodium Bicarbonate 325 mg 08/25/18 18:36 Sodium Bicarbonate FEEDTUBE PRN PRN For Clogged Feeding Tube Sodium Chloride 10 ml 08/13/18 10:00 09/01/18 21:45 Sodium Chloride Flush Syringe 10 Ml IV 10 ml BID LENCHO Administration Sodium Chloride 10 ml 08/13/18 01:34 08/30/18 22:29 Sodium Chloride Flush Syringe 10 Ml IV 10 ml PRN PRN Administration LINE FLUSH Nutrition/Malnutrition Assess - Dietary Evaluation Nutrition/Malnutrition Findings: Nutrition Notes Start: 08/13/18 15 :41 Freq: Status: Active Protocol: Document 08/31/18 13:06 LP (Rec: 08/31/18 13:09 LP [email or web address]) Nutrition Notes Initial or Follow up Reassessment Current Diagnosis Acute Kidney Injury,Diabetes Other Pertinent Diagnosis UTI, Hx CVA, PEG, Sacral PU, Multiple PU, Anoxic brain injury,R pneumothorax Current Diet Vital 1.2 at 60 ml/hr Labs/Tests Na 140 Pertinent Medications Reviewed Height 5 ft 8 in Weight 83.5 kg [place] Body Weight (kg) 70.00 BMI 28.0 Subjective/Other Information Pt TF at 50ml/hr. Percent of energy/protein needs met: 81%/100% Burn Absent Trauma Absent #1 Nutrition Diagnosis Inadequate oral intake Diagnosis Progress(for reassessment Continues documentation) Is patient on ventilator? Yes Is Patient Ambulatory and/or Out of Bed No REE-([facility]-confined to bed) 1751.892 Calculation Used for Recommendations [facility] Additional Notes Protein Needs: 87-145g (1.2-2g /kg) Fluid Needs: 1 ml/kcal Nutrition Intervention Change Diet Order: TF Nutrition Support: Vital 1.2 at 60 ml/hr. Water flush of 250ml q4h for hypernatremia and 100 mls q 4 hrs once resolved. Kcal 1,728 Protein (gm) 108 Fluid (mL) 1,167 Add Supplement/Snack (indicate name/kcal Magen BID /protein ) Provides kCal: 190 Provides Protein (gm) 5 Goal #1 Meet at least 80% of calorie and protein needs via TF Anticipated Discharge Needs: TF Follow-Up By: 09/03/18 Additional Comments Follow for TF tolerance at goal
[2018-09-02] MEDS: KEPPRA PO SCH ×2 (09:20→21:23)
[2018-09-02] MEDS: ASPIRIN PO SCH (09:20)
[2018-09-02] MEDS: PROVIGIL PO SCH (09:20)
[2018-09-02] MEDS: PEPCID PO SCH ×2 (09:20→21:24)
[2018-09-02] MEDS: NORVASC FEEDTUBE SCH (09:20)
[2018-09-02] MEDS: SODIUM CHLORIDE FLUSH SYRINGE 10 ML IV SCH ×2 (09:21→21:26)
--- NOTE | 2018-09-02 13:36 | Progress Note ---
Assessment and Plan Acute hypoxemic respiratory failure on chronic. Status post cardiac arrest. Seizure disorder with breakthrough seizures. History of diabetes. History of cerebrovascular accident. Oropharyngeal dysphagia. History of seizures. - prognosis for significant neurologic recovery to prior baseline (which per his is to be able to respond appropriately) is poor; his is not interested in decelerating care at this point - continue PSV trials as tolerated - avoid sedatives - T-piece trials once apnea's improved - prn ABG's & CXR's at this point - continue Keppra for seizures with prn ativan IV for breakthrough (now dosed at 500mg IV bid) - continue provigil - continue bronchodilators with routine trach care and pulmonary hygiene per RT - neurology evaluation ongoing (pupils reactive sluggishly) - sedation target for RASS 0 to -1 (daily SAT's as tolerated) - continue GI & VTE prophylaxis - continue to wean supplemental oxygen to keep O2 sats 88-90% - Lung protective strategies - VAP bundle addressed - Continue cardioprotective measures - Replete electrolytes as indicated - Continue to rest at night on full MVS - Monitor renal indices closely - Avoid nephrotoxic agents, adjust all medications for CrCL - Strict intake and output monitoring - continue enteral nutrition as tolerated - continue accuchecks with glycemic control per SSI for target glucose of 140- 180 mg/dL (Lantus re-introduced) - Maintenance of sleep -wake cycle modalities - Mobility as tolerated by hemodynamics - Influenza and pneumonia vaccination per protocol - discharge planning ongoing concurrently .... care plan discussed at length with in room today PROGNOSIS: GUARDED CONDITION: CRITICAL CODE STATUS: FULL CODE The high probability of a clinically significant, sudden or life-threatening deterioration of the [respiratory, neurology, renal] system(s) required my full and direct attention, intervention and personal management. The aggregate critical care time was [32] minutes without overlap. Time includes spent on; [x] Data Review and interpretation [x] Patient assessment and monitoring of vital signs [x] Documentation [x] Medication orders and management Subjective Date of service: 09/02/18 Principal diagnosis: Acute hypoxemic resp failure; S/P cardiac arrest; Seizures; DM II; H/O CVA Interval history: Patient is seen today for: Acute hypoxemic respiratory failure on chronic; Status post cardiac arrest; Seizure disorder with breakthrough seizures; History of diabetes; History of cerebrovascular accident; Oropharyngeal dysphagia; History of seizures. Seen and examined at bedside; 24hour events reviewed; nursing and respiratory care staff consulted; no adverse overnight events reported to me; remains on MVS; AMS is persistent; visiting; still tenuously tolerating PSV trials due to frequent apnea's; no seizure activity Objective Vital Signs - 12hr 09/02/18 09/02/18 09/02/18 02:00 02:31 03:00 Temperature Pulse Rate 64 61 65 Pulse Rate [ From Monitor] Pulse Rate [ Left Dorsalis Pedis] Pulse Rate [ Right Dorsalis Pedis] Respiratory 13 14 13 Rate Blood Pressure 166/83 189/81 166/85 O2 Sat by Pulse 100 100 100 Oximetry 09/02/18 09/02/18 09/02/18 03:30 03:51 04:00 Temperature 98.0 F Pulse Rate 68 68 Pulse Rate [ 64 From Monitor] Pulse Rate [ 64 Left Dorsalis Pedis] Pulse Rate [ 64 Right Dorsalis Pedis] Respiratory 13 12 11 L Rate Blood Pressure 189/85 168/89 O2 Sat by Pulse 100 100 100 Oximetry 09/02/18 09/02/18 09/02/18 04:31 05:01 05:06 Temperature Pulse Rate 68 68 Pulse Rate [ From Monitor] Pulse Rate [ Left Dorsalis Pedis] Pulse Rate [ Right Dorsalis Pedis] Respiratory 15 Rate Blood Pressure 180/90 189/81 189/81 O2 Sat by Pulse 100 100 100 Oximetry 09/02/18 09/02/18 09/02/18 05:30 06:00 06:30 Temperature Pulse Rate 66 67 66 Pulse Rate [ From Monitor] Pulse Rate [ Left Dorsalis Pedis] Pulse Rate [ Right Dorsalis Pedis] Respiratory 13 12 17 Rate Blood Pressure 184/82 191/83 184/85 O2 Sat by Pulse 100 100 100 Oximetry 09/02/18 09/02/18 09/02/18 07:01 07:31 08:00 Temperature 98.6 F Pulse Rate 66 62 Pulse Rate [ From Monitor] Pulse Rate [ Left Dorsalis Pedis] Pulse Rate [ Right Dorsalis Pedis] Respiratory 13 13 Rate Blood Pressure 201/72 182/80 O2 Sat by Pulse 100 100 100 Oximetry 09/02/18 09/02/18 09/02/18 08:01 08:31 09:00 Temperature Pulse Rate 68 65 68 Pulse Rate [ From Monitor] Pulse Rate [ Left Dorsalis Pedis] Pulse Rate [ Right Dorsalis Pedis] Respiratory 15 12 13 Rate Blood Pressure 186/69 182/80 181/78 O2 Sat by Pulse 100 100 100 Oximetry 09/02/18 09/02/18 09/02/18 09:06 09:20 09:30 Temperature Pulse Rate 67 70 Pulse Rate [ From Monitor] Pulse Rate [ Left Dorsalis Pedis] Pulse Rate [ Right Dorsalis Pedis] Respiratory 4 L 17 Rate Blood Pressure 181/78 181/78 178/79 O2 Sat by Pulse 100 100 Oximetry 09/02/18 09/02/18 09/02/18 10:00 12:00 12:57 Temperature 98.4 F Pulse Rate 71 69 Pulse Rate [ From Monitor] Pulse Rate [ Left Dorsalis Pedis] Pulse Rate [ Right Dorsalis Pedis] Respiratory 14 11 L Rate Blood Pressure 156/82 191/85 O2 Sat by Pulse 100 100 Oximetry Constitutional: no acute distress, other (Elderly looking AAM, normocephalic resting in bed on MVS) Eyes: non-icteric ENT: oropharynx moist Neck: supple, no lymphadenopathy, no JVD, other (s/p tracheostomy) Effort: mildly labored Ascultation: Bilateral: diminished breath sounds, rhonchi Percussion: Bilateral: not dull Cardiovascular: regular rate and rhythm Gastrointestinal: normoactive bowel sounds, soft, non-tender, non-distended Integumentary: normal Extremities: no cyanosis, pulses normal, no ischemia or petechiae, edema (trace ) Neurologic: unable to assess, other (slight pupillary constriction to light) Psychiatric: other (unable to assess) CBC and BMP: 09/05/18 04:52 09/05/18 04:52 ABG, PT/INR, D-dimer: ABG POC ABG pH 7.389 (7.35-7.45) 08/31/18 22:25 POC ABG pCO2 45.6 (35-45) H 08/31/18 22:25 POC ABG pO2 135 (80-105) H 08/31/18 22:25 POC ABG HCO3 27.5 (22-26 mml/L) 08/31/18 22:25 POC ABG Total CO2 29 (23-27mmol/L) 08/31/18 22:25 POC ABG O2 Sat 99 08/31/18 22:25 PT/INR, D-dimer PT 16.5 Sec. (12.2-14.9) H 08/13/18 00:47 INR 1.25 (0.87-1.13) H 08/13/18 00:47 2742.50 ng/mlDDU (0-234) H 08/13/18 20:07 Abnormal lab findings: Abnormal Labs 08/12/18 08/12/18 08/12/18 21:44 21:44 21:44 WBC 15.5 H RBC 3.12 L Hgb 8.8 L Hct 28.9 L MCV MCH MCHC 31 L RDW 19.5 H Lymph % (Auto) [place] % (Auto) Eos % (Auto) Lymph # [place] # Eos # Seg Neutrophils % Lymphocytes % (Manual) 48.0 H Seg Neutrophils # Lymphocytes # (Manual) 7.4 H PT 17.8 H INR 1.37 H APTT D-Dimer Heparin Anti-Xa Level POC ABG pH POC ABG pCO2 POC ABG pO2 Sodium 159 H Potassium Chloride 118.5 H Carbon Dioxide BUN 34 H Creatinine Glucose 161 H POC Glucose Lactic Acid Calcium Magnesium AST Alkaline Phosphatase Total Creatine Kinase CK-MB (CK-2) Troponin T 0.105 H* C-Reactive Protein Total Protein Albumin Cholesterol LDL Cholesterol Direct HDL Cholesterol Free T4 Urine WBC (Auto) Urine Creatinine Urine Total Protein Crossmatch 08/13/18 08/13/18 08/13/18 00:32 00:47 00:47 WBC RBC Hgb 9.2 L Hct 29.6 L MCV MCH MCHC RDW Lymph % (Auto) [place] % (Auto) Eos % (Auto) Lymph # [place] # Eos # Seg Neutrophils % Lymphocytes % (Manual) Seg Neutrophils # Lymphocytes # (Manual) PT 16.5 H INR 1.25 H APTT 37.3 H D-Dimer Heparin Anti-Xa Level POC ABG pH POC ABG pCO2 POC ABG pO2 Sodium Potassium Chloride Carbon Dioxide BUN Creatinine Glucose POC Glucose Lactic Acid Calcium Magnesium AST Alkaline Phosphatase Total Creatine Kinase 211 H CK-MB (CK-2) 7.7 H Troponin T 0.169 H* D C-Reactive Protein Total Protein Albumin Cholesterol 46 L LDL Cholesterol Direct 17 L HDL Cholesterol 6 L Free T4 Urine WBC (Auto) Urine Creatinine Urine Total Protein Crossmatch 08/13/18 08/13/18 08/13/18 00:50 02:25 05:34 WBC RBC Hgb Hct MCV MCH MCHC RDW Lymph % (Auto) [place] % (Auto) Eos % (Auto) Lymph # [place] # Eos # Seg Neutrophils % Lymphocytes % (Manual) Seg Neutrophils # Lymphocytes # (Manual) PT INR APTT D-Dimer Heparin Anti-Xa Level POC ABG pH 7.503 H POC ABG pCO2 POC ABG pO2 253 H Sodium Potassium Chloride Carbon Dioxide BUN Creatinine Glucose POC Glucose Lactic Acid Calcium Magnesium AST Alkaline Phosphatase Total Creatine Kinase 311 H CK-MB (CK-2) 10.4 H Troponin T 0.283 H* D C-Reactive Protein Total Protein Albumin Cholesterol LDL Cholesterol Direct HDL Cholesterol Free T4 Urine WBC (Auto) > 182.0 H Urine Creatinine Urine Total Protein Crossmatch 08/13/18 08/13/18 08/13/18 06:35 10:10 10:10 WBC RBC Hgb Hct MCV MCH MCHC RDW Lymph % (Auto) [place] % (Auto) Eos % (Auto) Lymph # [place] # Eos # Seg Neutrophils % Lymphocytes % (Manual) Seg Neutrophils # Lymphocytes # (Manual) PT INR APTT D-Dimer Heparin Anti-Xa Level POC ABG pH 7.554 H POC ABG pCO2 33.5 L POC ABG pO2 220 H Sodium 158 H Potassium Chloride 117.1 H Carbon Dioxide BUN 53 H Creatinine 2.0 H Glucose 247 H POC Glucose Lactic Acid Calcium 8.2 L Magnesium AST Alkaline Phosphatase Total Creatine Kinase 309 H CK-MB (CK-2) 4.1 H Troponin T 0.470 H* D C-Reactive Protein Total Protein Albumin Cholesterol LDL Cholesterol Direct HDL Cholesterol Free T4 Urine WBC (Auto) Urine Creatinine Urine Total Protein Crossmatch 08/13/18 08/13/18 08/13/18 12:53 12:53 17:55 WBC RBC Hgb Hct MCV MCH MCHC RDW Lymph % (Auto) [place] % (Auto) Eos % (Auto) Lymph # [place] # Eos # Seg Neutrophils % Lymphocytes % (Manual) Seg Neutrophils # Lymphocytes # (Manual) PT INR APTT D-Dimer Heparin Anti-Xa Level POC ABG pH POC ABG pCO2 POC ABG pO2 Sodium Potassium Chloride Carbon Dioxide BUN Creatinine Glucose POC Glucose 308 H Lactic Acid 2.80 H* Calcium Magnesium 2.50 H AST Alkaline Phosphatase Total Creatine Kinase CK-MB (CK-2) Troponin T C-Reactive Protein 16.90 H Total Protein Albumin Cholesterol LDL Cholesterol Direct HDL Cholesterol Free T4 Urine WBC (Auto) Urine Creatinine Urine Total Protein Crossmatch 08/13/18 08/13/18 08/13/18 20:07 21:16 23:17 WBC RBC Hgb Hct MCV MCH MCHC RDW Lymph % (Auto) [place] % (Auto) Eos % (Auto) Lymph # [place] # Eos # Seg Neutrophils % Lymphocytes % (Manual) Seg Neutrophils # Lymphocytes # (Manual) PT INR APTT D-Dimer 2742.50 H Heparin Anti-Xa Level POC ABG pH 7.483 H POC ABG pCO2 30.8 L POC ABG pO2 150 H Sodium Potassium Chloride Carbon Dioxide BUN Creatinine Glucose POC Glucose 245 H Lactic Acid Calcium Magnesium AST Alkaline Phosphatase Total Creatine Kinase CK-MB (CK-2) Troponin T C-Reactive Protein Total Protein Albumin Cholesterol LDL Cholesterol Direct HDL Cholesterol Free T4 Urine WBC (Auto) Urine Creatinine Urine Total Protein Crossmatch 08/14/18 08/14/18 08/14/18 04:03 04:03 04:56 WBC 18.2 H RBC 2.62 L Hgb 7.3 L Hct 24.5 L MCV MCH MCHC RDW 18.9 H Lymph % (Auto) [place] % (Auto) Eos % (Auto) Lymph # [place] # 1.2 H Eos # Seg Neutrophils % 79.4 H Lymphocytes % (Manual) Seg Neutrophils # 14.5 H Lymphocytes # (Manual) PT INR APTT D-Dimer Heparin Anti-Xa Level POC ABG pH POC ABG pCO2 33.5 L POC ABG pO2 153 H Sodium 152 H Potassium 3.4 L Chloride 113.8 H Carbon Dioxide BUN 72 H Creatinine 2.7 H Glucose 239 H POC Glucose Lactic Acid Calcium 7.6 L Magnesium AST 50 H Alkaline Phosphatase 219 H Total Creatine Kinase CK-MB (CK-2) Troponin T 0.409 H* C-Reactive Protein Total Protein 6.2 L Albumin 1.9 L Cholesterol LDL Cholesterol Direct HDL Cholesterol Free T4 Urine WBC (Auto) Urine Creatinine Urine Total Protein Crossmatch 08/14/18 08/14/18 08/14/18 05:18 13:38 15:35 WBC RBC Hgb Hct MCV MCH MCHC RDW Lymph % (Auto) [place] % (Auto) Eos % (Auto) Lymph # [place] # Eos # Seg Neutrophils % Lymphocytes % (Manual) Seg Neutrophils # Lymphocytes # (Manual) PT INR APTT D-Dimer Heparin Anti-Xa Level POC ABG pH POC ABG pCO2 POC ABG pO2 Sodium 150 H Potassium 3.2 L Chloride 114.5 H Carbon Dioxide BUN 69 H Creatinine 2.3 H Glucose 247 H POC Glucose 242 H 296 H Lactic Acid Calcium 7.2 L Magnesium AST Alkaline Phosphatase Total Creatine Kinase CK-MB (CK-2) Troponin T C-Reactive Protein Total Protein Albumin Cholesterol LDL Cholesterol Direct HDL Cholesterol Free T4 Urine WBC (Auto) Urine Creatinine Urine Total Protein Crossmatch 08/14/18 08/14/18 08/14/18 17:01 17:20 23:47 WBC RBC Hgb Hct MCV MCH MCHC RDW Lymph % (Auto) [place] % (Auto) Eos % (Auto) Lymph # [place] # Eos # Seg Neutrophils % Lymphocytes % (Manual) Seg Neutrophils # Lymphocytes # (Manual) PT INR APTT D-Dimer Heparin Anti-Xa Level POC ABG pH POC ABG pCO2 POC ABG pO2 Sodium Potassium Chloride Carbon Dioxide BUN Creatinine Glucose POC Glucose 261 H 280 H Lactic Acid Calcium Magnesium AST Alkaline Phosphatase Total Creatine Kinase CK-MB (CK-2) Troponin T C-Reactive Protein Total Protein Albumin Cholesterol LDL Cholesterol Direct HDL Cholesterol Free T4 Urine WBC (Auto) Urine Creatinine 60.9 H Urine Total Protein 64 H Crossmatch 08/15/18 08/15/18 08/15/18 04:05 04:05 04:05 WBC RBC Hgb 6.3 L Hct 19.7 L* MCV MCH MCHC RDW Lymph % (Auto) [place] % (Auto) Eos % (Auto) Lymph # [place] # Eos # Seg Neutrophils % Lymphocytes % (Manual) Seg Neutrophils # Lymphocytes # (Manual) PT INR APTT D-Dimer Heparin Anti-Xa Level 0.17 L POC ABG pH POC ABG pCO2 POC ABG pO2 Sodium 146 H Potassium 3.0 L Chloride 110.6 H Carbon Dioxide BUN 64 H Creatinine 2.2 H Glucose 231 H POC Glucose Lactic Acid Calcium 7.1 L Magnesium AST Alkaline Phosphatase Total Creatine Kinase CK-MB (CK-2) Troponin T C-Reactive Protein Total Protein Albumin Cholesterol LDL Cholesterol Direct HDL Cholesterol Free T4 Urine WBC (Auto) Urine Creatinine Urine Total Protein Crossmatch 08/15/18 08/15/18 08/15/18 05:21 05:26 06:35 WBC RBC Hgb Hct MCV MCH MCHC RDW Lymph % (Auto) [place] % (Auto) Eos % (Auto) Lymph # [place] # Eos # Seg Neutrophils % Lymphocytes % (Manual) Seg Neutrophils # Lymphocytes # (Manual) PT INR APTT 79.0 H* D-Dimer Heparin Anti-Xa Level POC ABG pH 7.494 H POC ABG pCO2 POC ABG pO2 155 H Sodium Potassium Chloride Carbon Dioxide BUN Creatinine Glucose POC Glucose 271 H Lactic Acid Calcium Magnesium AST Alkaline Phosphatase Total Creatine Kinase CK-MB (CK-2) Troponin T C-Reactive Protein Total Protein Albumin Cholesterol LDL Cholesterol Direct HDL Cholesterol Free T4 Urine WBC (Auto) Urine Creatinine Urine Total Protein Crossmatch 08/15/18 08/15/18 08/15/18 12:10 15:31 17:27 WBC RBC Hgb Hct MCV MCH MCHC RDW Lymph % (Auto) [place] % (Auto) Eos % (Auto) Lymph # [place] # Eos # Seg Neutrophils % Lymphocytes % (Manual) Seg Neutrophils # Lymphocytes # (Manual) PT INR APTT D-Dimer Heparin Anti-Xa Level POC ABG pH POC ABG pCO2 POC ABG pO2 Sodium Potassium Chloride Carbon Dioxide BUN Creatinine Glucose POC Glucose 301 H 287 H Lactic Acid Calcium Magnesium AST Alkaline Phosphatase Total Creatine Kinase CK-MB (CK-2) Troponin T C-Reactive Protein Total Protein Albumin Cholesterol LDL Cholesterol Direct HDL Cholesterol Free T4 Urine WBC (Auto) Urine Creatinine Urine Total Protein Crossmatch See Detail 08/15/18 08/15/18 08/16/18 21:41 23:45 04:13 WBC RBC Hgb Hct MCV MCH MCHC RDW Lymph % (Auto) [place] % (Auto) Eos % (Auto) Lymph # [place] # Eos # Seg Neutrophils % Lymphocytes % (Manual) Seg Neutrophils # Lymphocytes # (Manual) PT INR APTT D-Dimer Heparin Anti-Xa Level 0.19 L POC ABG pH POC ABG pCO2 32.1 L POC ABG pO2 107 H Sodium Potassium Chloride Carbon Dioxide BUN Creatinine Glucose POC Glucose 163 H Lactic Acid Calcium Magnesium AST Alkaline Phosphatase Total Creatine Kinase CK-MB (CK-2) Troponin T C-Reactive Protein Total Protein Albumin Cholesterol LDL Cholesterol Direct HDL Cholesterol Free T4 Urine WBC (Auto) Urine Creatinine Urine Total Protein Crossmatch 08/16/18 08/16/18 08/16/18 04:50 05:28 11:30 WBC RBC 2.67 L Hgb 8.1 L Hct 23.4 L MCV MCH MCHC 35 H RDW 18.3 H Lymph % (Auto) [place] % (Auto) Eos % (Auto) Lymph # [place] # Eos # Seg Neutrophils % Lymphocytes % (Manual) Seg Neutrophils # Lymphocytes # (Manual) PT INR APTT D-Dimer Heparin Anti-Xa Level 0.19 L POC ABG pH POC ABG pCO2 POC ABG pO2 Sodium Potassium Chloride Carbon Dioxide BUN Creatinine Glucose POC Glucose 141 H Lactic Acid Calcium Magnesium AST Alkaline Phosphatase Total Creatine Kinase CK-MB (CK-2) Troponin T C-Reactive Protein Total Protein Albumin Cholesterol LDL Cholesterol Direct HDL Cholesterol Free T4 Urine WBC (Auto) Urine Creatinine Urine Total Protein Crossmatch 08/16/18 08/16/18 08/16/18 11:30 12:00 12:01 WBC RBC Hgb Hct MCV MCH MCHC RDW Lymph % (Auto) [place] % (Auto) Eos % (Auto) Lymph # [place] # Eos # Seg Neutrophils % Lymphocytes % (Manual) Seg Neutrophils # Lymphocytes # (Manual) PT INR APTT D-Dimer Heparin Anti-Xa Level 0.15 L POC ABG pH POC ABG pCO2 POC ABG pO2 Sodium Potassium Chloride 107.8 H Carbon Dioxide 21 L BUN 47 H Creatinine 1.6 H Glucose 221 H POC Glucose 267 H Lactic Acid Calcium 6.9 L Magnesium AST Alkaline Phosphatase Total Creatine Kinase CK-MB (CK-2) Troponin T C-Reactive Protein Total Protein Albumin Cholesterol LDL Cholesterol Direct HDL Cholesterol Free T4 Urine WBC (Auto) Urine Creatinine Urine Total Protein Crossmatch 08/16/18 08/16/18 08/16/18 17:23 20:01 23:13 WBC RBC Hgb Hct MCV MCH MCHC RDW Lymph % (Auto) [place] % (Auto) Eos % (Auto) Lymph # [place] # Eos # Seg Neutrophils % Lymphocytes % (Manual) Seg Neutrophils # Lymphocytes # (Manual) PT INR APTT D-Dimer Heparin Anti-Xa Level 0.26 L POC ABG pH POC ABG pCO2 POC ABG pO2 Sodium Potassium Chloride Carbon Dioxide BUN Creatinine Glucose POC Glucose 245 H 256 H Lactic Acid Calcium Magnesium AST Alkaline Phosphatase Total Creatine Kinase CK-MB (CK-2) Troponin T C-Reactive Protein Total Protein Albumin Cholesterol LDL Cholesterol Direct HDL Cholesterol Free T4 Urine WBC (Auto) Urine Creatinine Urine Total Protein Crossmatch 08/17/18 08/17/18 08/17/18 04:29 04:55 05:34 WBC RBC Hgb 8.2 L Hct 24.3 L MCV MCH MCHC RDW Lymph % (Auto) [place] % (Auto) Eos % (Auto) Lymph # [place] # Eos # Seg Neutrophils % Lymphocytes % (Manual) Seg Neutrophils # Lymphocytes # (Manual) PT INR APTT D-Dimer Heparin Anti-Xa Level POC ABG pH POC ABG pCO2 32.4 L POC ABG pO2 108 H Sodium Potassium Chloride Carbon Dioxide BUN Creatinine Glucose POC Glucose 268 H Lactic Acid Calcium Magnesium AST Alkaline Phosphatase Total Creatine Kinase CK-MB (CK-2) Troponin T C-Reactive Protein Total Protein Albumin Cholesterol LDL Cholesterol Direct HDL Cholesterol Free T4 Urine WBC (Auto) Urine Creatinine Urine Total Protein Crossmatch 08/17/18 08/17/18 08/17/18 11:54 13:44 17:24 WBC RBC Hgb Hct MCV MCH MCHC RDW Lymph % (Auto) [place] % (Auto) Eos % (Auto) Lymph # [place] # Eos # Seg Neutrophils % Lymphocytes % (Manual) Seg Neutrophils # Lymphocytes # (Manual) PT INR APTT D-Dimer Heparin Anti-Xa Level POC ABG pH POC ABG pCO2 32.7 L POC ABG pO2 142 H Sodium Potassium Chloride Carbon Dioxide BUN Creatinine Glucose POC Glucose 295 H 283 H Lactic Acid Calcium Magnesium AST Alkaline Phosphatase Total Creatine Kinase CK-MB (CK-2) Troponin T C-Reactive Protein Total Protein Albumin Cholesterol LDL Cholesterol Direct HDL Cholesterol Free T4 Urine WBC (Auto) Urine Creatinine Urine Total Protein Crossmatch 08/18/18 08/18/18 08/18/18 00:05 00:59 04:15 WBC RBC Hgb Hct MCV MCH MCHC RDW Lymph % (Auto) [place] % (Auto) Eos % (Auto) Lymph # [place] # Eos # Seg Neutrophils % Lymphocytes % (Manual) Seg Neutrophils # Lymphocytes # (Manual) PT INR APTT D-Dimer Heparin Anti-Xa Level POC ABG pH POC ABG pCO2 POC ABG pO2 115 H Sodium Potassium Chloride Carbon Dioxide BUN Creatinine Glucose POC Glucose 247 H 251 H Lactic Acid Calcium Magnesium AST Alkaline Phosphatase Total Creatine Kinase CK-MB (CK-2) Troponin T C-Reactive Protein Total Protein Albumin Cholesterol LDL Cholesterol Direct HDL Cholesterol Free T4 Urine WBC (Auto) Urine Creatinine Urine Total Protein Crossmatch 08/18/18 08/18/18 08/18/18 05:02 12:20 17:51 WBC RBC Hgb Hct MCV MCH MCHC RDW Lymph % (Auto) [place] % (Auto) Eos % (Auto) Lymph # [place] # Eos # Seg Neutrophils % Lymphocytes % (Manual) Seg Neutrophils # Lymphocytes # (Manual) PT INR APTT D-Dimer Heparin Anti-Xa Level POC ABG pH POC ABG pCO2 POC ABG pO2 Sodium Potassium Chloride Carbon Dioxide BUN Creatinine Glucose POC Glucose 282 H 209 H 261 H Lactic Acid Calcium Magnesium AST Alkaline Phosphatase Total Creatine Kinase CK-MB (CK-2) Troponin T C-Reactive Protein Total Protein Albumin Cholesterol LDL Cholesterol Direct HDL Cholesterol Free T4 Urine WBC (Auto) Urine Creatinine Urine Total Protein Crossmatch 08/18/18 08/19/18 08/19/18 23:30 04:54 05:16 WBC RBC 2.62 L Hgb 7.5 L Hct 23.1 L MCV MCH MCHC RDW 18.1 H Lymph % (Auto) [place] % (Auto) Eos % (Auto) Lymph # [place] # Eos # Seg Neutrophils % Lymphocytes % (Manual) Seg Neutrophils # Lymphocytes # (Manual) PT INR APTT D-Dimer Heparin Anti-Xa Level POC ABG pH POC ABG pCO2 POC ABG pO2 58 L Sodium Potassium Chloride Carbon Dioxide BUN Creatinine Glucose POC Glucose 231 H Lactic Acid Calcium Magnesium AST Alkaline Phosphatase Total Creatine Kinase CK-MB (CK-2) Troponin T C-Reactive Protein Total Protein Albumin Cholesterol LDL Cholesterol Direct HDL Cholesterol Free T4 Urine WBC (Auto) Urine Creatinine Urine Total Protein Crossmatch 08/19/18 08/19/18 08/19/18 05:16 05:40 11:56 WBC RBC Hgb Hct MCV MCH MCHC RDW Lymph % (Auto) [place] % (Auto) Eos % (Auto) Lymph # [place] # Eos # Seg Neutrophils % Lymphocytes % (Manual) Seg Neutrophils # Lymphocytes # (Manual) PT INR APTT D-Dimer Heparin Anti-Xa Level POC ABG pH POC ABG pCO2 POC ABG pO2 Sodium 152 H D Potassium Chloride 118.7 H Carbon Dioxide BUN 38 H Creatinine Glucose 220 H POC Glucose 227 H 213 H Lactic Acid Calcium 8.1 L D Magnesium AST Alkaline Phosphatase Total Creatine Kinase CK-MB (CK-2) Troponin T C-Reactive Protein Total Protein Albumin Cholesterol LDL Cholesterol Direct HDL Cholesterol Free T4 Urine WBC (Auto) Urine Creatinine Urine Total Protein Crossmatch 08/19/18 08/19/18 08/20/18 18:37 23:32 04:38 WBC RBC Hgb Hct MCV MCH MCHC RDW Lymph % (Auto) [place] % (Auto) Eos % (Auto) Lymph # [place] # Eos # Seg Neutrophils % Lymphocytes % (Manual) Seg Neutrophils # Lymphocytes # (Manual) PT INR APTT D-Dimer Heparin Anti-Xa Level POC ABG pH POC ABG pCO2 POC ABG pO2 140 H Sodium Potassium Chloride Carbon Dioxide BUN Creatinine Glucose POC Glucose 227 H 245 H Lactic Acid Calcium Magnesium AST Alkaline Phosphatase Total Creatine Kinase CK-MB (CK-2) Troponin T C-Reactive Protein Total Protein Albumin Cholesterol LDL Cholesterol Direct HDL Cholesterol Free T4 Urine WBC (Auto) Urine Creatinine Urine Total Protein Crossmatch 08/20/18 08/20/18 08/20/18 05:31 05:37 05:37 WBC RBC 2.60 L Hgb 7.5 L Hct 22.9 L MCV MCH MCHC RDW 18.4 H Lymph % (Auto) [place] % (Auto) Eos % (Auto) Lymph # [place] # Eos # Seg Neutrophils % Lymphocytes % (Manual) Seg Neutrophils # Lymphocytes # (Manual) PT INR APTT D-Dimer Heparin Anti-Xa Level POC ABG pH POC ABG pCO2 POC ABG pO2 Sodium 150 H Potassium Chloride 115.6 H Carbon Dioxide BUN 38 H Creatinine Glucose 276 H POC Glucose 266 H Lactic Acid Calcium 7.9 L Magnesium AST Alkaline Phosphatase Total Creatine Kinase CK-MB (CK-2) Troponin T C-Reactive Protein Total Protein Albumin Cholesterol LDL Cholesterol Direct HDL Cholesterol Free T4 Urine WBC (Auto) Urine Creatinine Urine Total Protein Crossmatch 08/20/18 08/20/18 08/20/18 14:01 18:20 23:11 WBC RBC Hgb Hct MCV MCH MCHC RDW Lymph % (Auto) [place] % (Auto) Eos % (Auto) Lymph # [place] # Eos # Seg Neutrophils % Lymphocytes % (Manual) Seg Neutrophils # Lymphocytes # (Manual) PT INR APTT D-Dimer Heparin Anti-Xa Level POC ABG pH POC ABG pCO2 POC ABG pO2 Sodium Potassium Chloride Carbon Dioxide BUN Creatinine Glucose POC Glucose 305 H 271 H 218 H Lactic Acid Calcium Magnesium AST Alkaline Phosphatase Total Creatine Kinase CK-MB (CK-2) Troponin T C-Reactive Protein Total Protein Albumin Cholesterol LDL Cholesterol Direct HDL Cholesterol Free T4 Urine WBC (Auto) Urine Creatinine Urine Total Protein Crossmatch 08/21/18 08/21/18 08/21/18 04:41 04:41 06:20 WBC RBC 2.65 L Hgb 7.6 L Hct 23.3 L MCV MCH MCHC RDW 19.1 H Lymph % (Auto) [place] % (Auto) Eos % (Auto) Lymph # [place] # Eos # Seg Neutrophils % Lymphocytes % (Manual) Seg Neutrophils # Lymphocytes # (Manual) PT INR APTT D-Dimer Heparin Anti-Xa Level POC ABG pH POC ABG pCO2 POC ABG pO2 Sodium 150 H Potassium Chloride 117.8 H Carbon Dioxide BUN 37 H Creatinine Glucose 233 H POC Glucose 262 H Lactic Acid Calcium 7.9 L Magnesium AST Alkaline Phosphatase Total Creatine Kinase CK-MB (CK-2) Troponin T C-Reactive Protein Total Protein Albumin Cholesterol LDL Cholesterol Direct HDL Cholesterol Free T4 Urine WBC (Auto) Urine Creatinine Urine Total Protein Crossmatch 08/21/18 08/21/18 08/21/18 10:18 12:04 12:36 WBC RBC Hgb Hct MCV MCH MCHC RDW Lymph % (Auto) [place] % (Auto) Eos % (Auto) Lymph # [place] # Eos # Seg Neutrophils % Lymphocytes % (Manual) Seg Neutrophils # Lymphocytes # (Manual) PT INR APTT D-Dimer Heparin Anti-Xa Level POC ABG pH POC ABG pCO2 POC ABG pO2 Sodium Potassium Chloride Carbon Dioxide BUN Creatinine Glucose POC Glucose 256 H 245 H 255 H Lactic Acid Calcium Magnesium AST Alkaline Phosphatase Total Creatine Kinase CK-MB (CK-2) Troponin T C-Reactive Protein Total Protein Albumin Cholesterol LDL Cholesterol Direct HDL Cholesterol Free T4 Urine WBC (Auto) Urine Creatinine Urine Total Protein Crossmatch 08/21/18 08/21/18 08/22/18 17:36 23:29 05:01 WBC RBC Hgb Hct MCV MCH MCHC RDW Lymph % (Auto) [place] % (Auto) Eos % (Auto) Lymph # [place] # Eos # Seg Neutrophils % Lymphocytes % (Manual) Seg Neutrophils # Lymphocytes # (Manual) PT INR APTT D-Dimer Heparin Anti-Xa Level POC ABG pH 7.466 H POC ABG pCO2 33.8 L POC ABG pO2 111 H Sodium Potassium Chloride Carbon Dioxide BUN Creatinine Glucose POC Glucose 263 H 268 H Lactic Acid Calcium Magnesium AST Alkaline Phosphatase Total Creatine Kinase CK-MB (CK-2) Troponin T C-Reactive Protein Total Protein Albumin Cholesterol LDL Cholesterol Direct HDL Cholesterol Free T4 Urine WBC (Auto) Urine Creatinine Urine Total Protein Crossmatch 0508/22/18 08/22/18 05:05 12:05 12:15 WBC RBC Hgb Hct MCV MCH MCHC RDW Lymph % (Auto) [place] % (Auto) Eos % (Auto) Lymph # [place] # Eos # Seg Neutrophils % Lymphocytes % (Manual) Seg Neutrophils # Lymphocytes # (Manual) PT INR APTT D-Dimer Heparin Anti-Xa Level POC ABG pH POC ABG pCO2 POC ABG pO2 Sodium 147 H Potassium Chloride 113.2 H Carbon Dioxide BUN 36 H Creatinine Glucose 249 H POC Glucose 256 H 228 H Lactic Acid Calcium 8.2 L Magnesium AST Alkaline Phosphatase Total Creatine Kinase CK-MB (CK-2) Troponin T C-Reactive Protein Total Protein Albumin Cholesterol LDL Cholesterol Direct HDL Cholesterol Free T4 Urine WBC (Auto) Urine Creatinine Urine Total Protein Crossmatch 08/22/18 08/23/18 08/23/18 17:30 00:03 05:05 WBC RBC Hgb Hct MCV MCH MCHC RDW Lymph % (Auto) [place] % (Auto) Eos % (Auto) Lymph # [place] # Eos # Seg Neutrophils % Lymphocytes % (Manual) Seg Neutrophils # Lymphocytes # (Manual) PT INR APTT D-Dimer Heparin Anti-Xa Level POC ABG pH POC ABG pCO2 POC ABG pO2 Sodium Potassium Chloride Carbon Dioxide BUN Creatinine Glucose POC Glucose 291 H 259 H 247 H Lactic Acid Calcium Magnesium AST Alkaline Phosphatase Total Creatine Kinase CK-MB (CK-2) Troponin T C-Reactive Protein Total Protein Albumin Cholesterol LDL Cholesterol Direct HDL Cholesterol Free T4 Urine WBC (Auto) Urine Creatinine Urine Total Protein Crossmatch 08/23/18 08/23/18 08/23/18 05:14 12:29 17:21 WBC RBC Hgb Hct MCV MCH MCHC RDW Lymph % (Auto) [place] % (Auto) Eos % (Auto) Lymph # [place] # Eos # Seg Neutrophils % Lymphocytes % (Manual) Seg Neutrophils # Lymphocytes # (Manual) PT INR APTT D-Dimer Heparin Anti-Xa Level POC ABG pH POC ABG pCO2 POC ABG pO2 Sodium Potassium Chloride Carbon Dioxide BUN Creatinine Glucose POC Glucose 208 H 138 H 175 H Lactic Acid Calcium Magnesium AST Alkaline Phosphatase Total Creatine Kinase CK-MB (CK-2) Troponin T C-Reactive Protein Total Protein Albumin Cholesterol LDL Cholesterol Direct HDL Cholesterol Free T4 Urine WBC (Auto) Urine Creatinine Urine Total Protein Crossmatch 08/23/18 08/24/18 08/24/18 23:36 01:00 05:50 WBC RBC 2.92 L 2.90 L Hgb 8.3 L 8.2 L Hct 25.4 L 25.2 L MCV MCH MCHC RDW 18.9 H 18.6 H Lymph % (Auto) [place] % (Auto) 9.2 H Eos % (Auto) Lymph # [place] # Eos # Seg Neutrophils % Lymphocytes % (Manual) Seg Neutrophils # Lymphocytes # (Manual) PT INR APTT D-Dimer Heparin Anti-Xa Level POC ABG pH POC ABG pCO2 POC ABG pO2 Sodium Potassium Chloride Carbon Dioxide BUN Creatinine Glucose POC Glucose 163 H Lactic Acid Calcium Magnesium AST Alkaline Phosphatase Total Creatine Kinase CK-MB (CK-2) Troponin T C-Reactive Protein Total Protein Albumin Cholesterol LDL Cholesterol Direct HDL Cholesterol Free T4 Urine WBC (Auto) Urine Creatinine Urine Total Protein Crossmatch 08/24/18 08/24/18 08/24/18 05:50 12:26 18:37 WBC RBC Hgb Hct MCV MCH MCHC RDW Lymph % (Auto) [place] % (Auto) Eos % (Auto) Lymph # [place] # Eos # Seg Neutrophils % Lymphocytes % (Manual) Seg Neutrophils # Lymphocytes # (Manual) PT INR APTT D-Dimer Heparin Anti-Xa Level POC ABG pH POC ABG pCO2 POC ABG pO2 Sodium 147 H Potassium Chloride 113.6 H Carbon Dioxide BUN 33 H Creatinine Glucose 210 H POC Glucose 223 H 166 H Lactic Acid Calcium 8.3 L Magnesium AST Alkaline Phosphatase Total Creatine Kinase CK-MB (CK-2) Troponin T C-Reactive Protein Total Protein Albumin Cholesterol LDL Cholesterol Direct HDL Cholesterol Free T4 Urine WBC (Auto) Urine Creatinine Urine Total Protein Crossmatch 08/24/18 08/25/18 08/25/18 23:47 04:55 04:55 WBC RBC 2.94 L Hgb 8.4 L Hct 25.1 L MCV MCH MCHC RDW 18.2 H Lymph % (Auto) [place] % (Auto) Eos % (Auto) Lymph # [place] # Eos # Seg Neutrophils % Lymphocytes % (Manual) Seg Neutrophils # Lymphocytes # (Manual) PT INR APTT D-Dimer Heparin Anti-Xa Level POC ABG pH POC ABG pCO2 POC ABG pO2 Sodium Potassium Chloride 110.2 H Carbon Dioxide BUN 30 H Creatinine Glucose POC Glucose 126 H Lactic Acid Calcium 8.1 L Magnesium AST Alkaline Phosphatase Total Creatine Kinase CK-MB (CK-2) Troponin T C-Reactive Protein Total Protein Albumin Cholesterol LDL Cholesterol Direct HDL Cholesterol Free T4 Urine WBC (Auto) Urine Creatinine Urine Total Protein Crossmatch 08/25/18 08/26/18 08/26/18 12:40 04:39 04:39 WBC RBC 2.96 L Hgb 8.3 L Hct 25.7 L MCV MCH MCHC RDW 18.2 H Lymph % (Auto) 10.5 L [place] % (Auto) 9.3 H Eos % (Auto) Lymph # 0.8 L [place] # Eos # Seg Neutrophils % 77.0 H Lymphocytes % (Manual) Seg Neutrophils # Lymphocytes # (Manual) PT INR APTT D-Dimer Heparin Anti-Xa Level POC ABG pH POC ABG pCO2 POC ABG pO2 Sodium 147 H Potassium Chloride 113.5 H Carbon Dioxide BUN 27 H Creatinine 0.7 L Glucose 106 H POC Glucose Lactic Acid Calcium 8.0 L Magnesium AST Alkaline Phosphatase Total Creatine Kinase CK-MB (CK-2) Troponin T C-Reactive Protein Total Protein Albumin Cholesterol LDL Cholesterol Direct HDL Cholesterol Free T4 Urine WBC (Auto) > 182.0 H Urine Creatinine Urine Total Protein Crossmatch 08/26/18 08/26/18 08/26/18 05:27 09:00 09:54 WBC RBC Hgb Hct MCV MCH MCHC RDW Lymph % (Auto) [place] % (Auto) Eos % (Auto) Lymph # [place] # Eos # Seg Neutrophils % Lymphocytes % (Manual) Seg Neutrophils # Lymphocytes # (Manual) PT INR APTT D-Dimer Heparin Anti-Xa Level POC ABG pH POC ABG pCO2 POC ABG pO2 Sodium Potassium Chloride Carbon Dioxide BUN Creatinine Glucose POC Glucose 120 H 170 H Lactic Acid Calcium Magnesium AST Alkaline Phosphatase Total Creatine Kinase CK-MB (CK-2) Troponin T C-Reactive Protein Total Protein Albumin Cholesterol LDL Cholesterol Direct HDL Cholesterol Free T4 0.51 L Urine WBC (Auto) Urine Creatinine Urine Total Protein Crossmatch 08/26/18 08/26/18 08/27/18 14:52 17:50 06:30 WBC RBC Hgb Hct MCV MCH MCHC RDW Lymph % (Auto) [place] % (Auto) Eos % (Auto) Lymph # [place] # Eos # Seg Neutrophils % Lymphocytes % (Manual) Seg Neutrophils # Lymphocytes # (Manual) PT INR APTT D-Dimer Heparin Anti-Xa Level POC ABG pH POC ABG pCO2 POC ABG pO2 Sodium 150 H Potassium Chloride 114.8 H Carbon Dioxide BUN 24 H Creatinine 0.7 L Glucose 131 H POC Glucose 166 H 107 H Lactic Acid Calcium 7.8 L Magnesium AST Alkaline Phosphatase Total Creatine Kinase CK-MB (CK-2) Troponin T C-Reactive Protein Total Protein Albumin Cholesterol LDL Cholesterol Direct HDL Cholesterol Free T4 Urine WBC (Auto) Urine Creatinine Urine Total Protein Crossmatch 08/27/18 08/27/18 08/27/18 08:22 14:20 16:06 WBC RBC Hgb Hct MCV MCH MCHC RDW Lymph % (Auto) [place] % (Auto) Eos % (Auto) Lymph # [place] # Eos # Seg Neutrophils % Lymphocytes % (Manual) Seg Neutrophils # Lymphocytes # (Manual) PT INR APTT D-Dimer Heparin Anti-Xa Level POC ABG pH POC ABG pCO2 POC ABG pO2 Sodium Potassium Chloride Carbon Dioxide BUN Creatinine Glucose POC Glucose 112 H 151 H 158 H Lactic Acid Calcium Magnesium AST Alkaline Phosphatase Total Creatine Kinase CK-MB (CK-2) Troponin T C-Reactive Protein Total Protein Albumin Cholesterol LDL Cholesterol Direct HDL Cholesterol Free T4 Urine WBC (Auto) Urine Creatinine Urine Total Protein Crossmatch 08/27/18 08/27/18 08/28/18 20:09 21:25 02:03 WBC RBC Hgb Hct MCV MCH MCHC RDW Lymph % (Auto) [place] % (Auto) Eos % (Auto) Lymph # [place] # Eos # Seg Neutrophils % Lymphocytes % (Manual) Seg Neutrophils # Lymphocytes # (Manual) PT INR APTT D-Dimer Heparin Anti-Xa Level POC ABG pH POC ABG pCO2 POC ABG pO2 130 H Sodium Potassium Chloride Carbon Dioxide BUN Creatinine Glucose POC Glucose 226 H 250 H Lactic Acid Calcium Magnesium AST Alkaline Phosphatase Total Creatine Kinase CK-MB (CK-2) Troponin T C-Reactive Protein Total Protein Albumin Cholesterol LDL Cholesterol Direct HDL Cholesterol Free T4 Urine WBC (Auto) Urine Creatinine Urine Total Protein Crossmatch 08/28/18 08/28/18 08/28/18 05:56 07:15 13:17 WBC RBC Hgb Hct MCV MCH MCHC RDW Lymph % (Auto) [place] % (Auto) Eos % (Auto) Lymph # [place] # Eos # Seg Neutrophils % Lymphocytes % (Manual) Seg Neutrophils # Lymphocytes # (Manual) PT INR APTT D-Dimer Heparin Anti-Xa Level POC ABG pH POC ABG pCO2 POC ABG pO2 Sodium Potassium Chloride Carbon Dioxide BUN Creatinine Glucose 198 H POC Glucose 221 H 188 H Lactic Acid Calcium 7.7 L Magnesium AST Alkaline Phosphatase Total Creatine Kinase CK-MB (CK-2) Troponin T C-Reactive Protein Total Protein Albumin Cholesterol LDL Cholesterol Direct HDL Cholesterol Free T4 Urine WBC (Auto) Urine Creatinine Urine Total Protein Crossmatch 08/28/18 08/28/18 08/28/18 15:53 18:12 22:35 WBC RBC Hgb Hct MCV MCH MCHC RDW Lymph % (Auto) [place] % (Auto) Eos % (Auto) Lymph # [place] # Eos # Seg Neutrophils % Lymphocytes % (Manual) Seg Neutrophils # Lymphocytes # (Manual) PT INR APTT D-Dimer Heparin Anti-Xa Level POC ABG pH 7.457 H POC ABG pCO2 POC ABG pO2 Sodium Potassium Chloride Carbon Dioxide BUN Creatinine Glucose POC Glucose 197 H 225 H Lactic Acid Calcium Magnesium AST Alkaline Phosphatase Total Creatine Kinase CK-MB (CK-2) Troponin T C-Reactive Protein Total Protein Albumin Cholesterol LDL Cholesterol Direct HDL Cholesterol Free T4 Urine WBC (Auto) Urine Creatinine Urine Total Protein Crossmatch 08/29/18 08/29/18 08/29/18 03:04 10:47 14:25 WBC RBC Hgb Hct MCV MCH MCHC RDW Lymph % (Auto) [place] % (Auto) Eos % (Auto) Lymph # [place] # Eos # Seg Neutrophils % Lymphocytes % (Manual) Seg Neutrophils # Lymphocytes # (Manual) PT INR APTT D-Dimer Heparin Anti-Xa Level POC ABG pH POC ABG pCO2 POC ABG pO2 Sodium Potassium Chloride Carbon Dioxide BUN Creatinine Glucose POC Glucose 223 H 371 H 266 H Lactic Acid Calcium Magnesium AST Alkaline Phosphatase Total Creatine Kinase CK-MB (CK-2) Troponin T C-Reactive Protein Total Protein Albumin Cholesterol LDL Cholesterol Direct HDL Cholesterol Free T4 Urine WBC (Auto) Urine Creatinine Urine Total Protein Crossmatch 08/29/18 08/29/18 08/29/18 16:45 17:36 21:33 WBC RBC Hgb Hct MCV MCH MCHC RDW Lymph % (Auto) [place] % (Auto) Eos % (Auto) Lymph # [place] # Eos # Seg Neutrophils % Lymphocytes % (Manual) Seg Neutrophils # Lymphocytes # (Manual) PT INR APTT D-Dimer Heparin Anti-Xa Level POC ABG pH POC ABG pCO2 POC ABG pO2 118 H Sodium Potassium Chloride Carbon Dioxide BUN Creatinine Glucose POC Glucose 253 H 204 H Lactic Acid Calcium Magnesium AST Alkaline Phosphatase Total Creatine Kinase CK-MB (CK-2) Troponin T C-Reactive Protein Total Protein Albumin Cholesterol LDL Cholesterol Direct HDL Cholesterol Free T4 Urine WBC (Auto) Urine Creatinine Urine Total Protein Crossmatch 08/30/18 08/30/18 08/30/18 01:33 05:27 05:40 WBC RBC 3.12 L Hgb 8.5 L Hct 25.9 L MCV 83 L MCH 27 L MCHC RDW 18.3 H Lymph % (Auto) [place] % (Auto) 7.8 H Eos % (Auto) 8.8 H Lymph # [place] # Eos # 0.6 H Seg Neutrophils % Lymphocytes % (Manual) Seg Neutrophils # Lymphocytes # (Manual) PT INR APTT D-Dimer Heparin Anti-Xa Level POC ABG pH POC ABG pCO2 POC ABG pO2 Sodium Potassium Chloride Carbon Dioxide BUN Creatinine Glucose POC Glucose 157 H 178 H Lactic Acid Calcium Magnesium AST Alkaline Phosphatase Total Creatine Kinase CK-MB (CK-2) Troponin T C-Reactive Protein Total Protein Albumin Cholesterol LDL Cholesterol Direct HDL Cholesterol Free T4 Urine WBC (Auto) Urine Creatinine Urine Total Protein Crossmatch 08/30/18 08/30/18 08/30/18 05:40 09:28 11:41 WBC RBC Hgb Hct MCV MCH MCHC RDW Lymph % (Auto) [place] % (Auto) Eos % (Auto) Lymph # [place] # Eos # Seg Neutrophils % Lymphocytes % (Manual) Seg Neutrophils # Lymphocytes # (Manual) PT INR APTT D-Dimer Heparin Anti-Xa Level POC ABG pH POC ABG pCO2 POC ABG pO2 Sodium Potassium Chloride Carbon Dioxide BUN Creatinine 0.7 L Glucose 189 H POC Glucose 216 H 257 H Lactic Acid Calcium 8.2 L Magnesium AST 50 H Alkaline Phosphatase 158 H Total Creatine Kinase CK-MB (CK-2) Troponin T C-Reactive Protein Total Protein Albumin 1.6 L Cholesterol LDL Cholesterol Direct HDL Cholesterol Free T4 Urine WBC (Auto) Urine Creatinine Urine Total Protein Crossmatch 08/30/18 08/30/18 08/30/18 14:34 17:07 21:56 WBC RBC Hgb Hct MCV MCH MCHC RDW Lymph % (Auto) [place] % (Auto) Eos % (Auto) Lymph # [place] # Eos # Seg Neutrophils % Lymphocytes % (Manual) Seg Neutrophils # Lymphocytes # (Manual) PT INR APTT D-Dimer Heparin Anti-Xa Level POC ABG pH POC ABG pCO2 POC ABG pO2 Sodium Potassium Chloride Carbon Dioxide BUN Creatinine Glucose POC Glucose 263 H 263 H 234 H Lactic Acid Calcium Magnesium AST Alkaline Phosphatase Total Creatine Kinase CK-MB (CK-2) Troponin T C-Reactive Protein Total Protein Albumin Cholesterol LDL Cholesterol Direct HDL Cholesterol Free T4 Urine WBC (Auto) Urine Creatinine Urine Total Protein Crossmatch 08/31/18 08/31/18 08/31/18 02:02 05:29 09:24 WBC RBC Hgb Hct MCV MCH MCHC RDW Lymph % (Auto) [place] % (Auto) Eos % (Auto) Lymph # [place] # Eos # Seg Neutrophils % Lymphocytes % (Manual) Seg Neutrophils # Lymphocytes # (Manual) PT INR APTT D-Dimer Heparin Anti-Xa Level POC ABG pH POC ABG pCO2 POC ABG pO2 Sodium Potassium Chloride Carbon Dioxide BUN Creatinine Glucose POC Glucose 151 H 156 H 107 H Lactic Acid Calcium Magnesium AST Alkaline Phosphatase Total Creatine Kinase CK-MB (CK-2) Troponin T C-Reactive Protein Total Protein Albumin Cholesterol LDL Cholesterol Direct HDL Cholesterol Free T4 Urine WBC (Auto) Urine Creatinine Urine Total Protein Crossmatch 08/31/18 08/31/18 08/31/18 13:51 17:28 21:40 WBC RBC Hgb Hct MCV MCH MCHC RDW Lymph % (Auto) [place] % (Auto) Eos % (Auto) Lymph # [place] # Eos # Seg Neutrophils % Lymphocytes % (Manual) Seg Neutrophils # Lymphocytes # (Manual) PT INR APTT D-Dimer Heparin Anti-Xa Level POC ABG pH POC ABG pCO2 POC ABG pO2 Sodium Potassium Chloride Carbon Dioxide BUN Creatinine Glucose POC Glucose 170 H 239 H 209 H Lactic Acid Calcium Magnesium AST Alkaline Phosphatase Total Creatine Kinase CK-MB (CK-2) Troponin T C-Reactive Protein Total Protein Albumin Cholesterol LDL Cholesterol Direct HDL Cholesterol Free T4 Urine WBC (Auto) Urine Creatinine Urine Total Protein Crossmatch 08/31/18 08/31/18 09/01/18 22:25 22:25 01:47 WBC RBC Hgb Hct MCV MCH MCHC RDW Lymph % (Auto) [place] % (Auto) Eos % (Auto) Lymph # [place] # Eos # Seg Neutrophils % Lymphocytes % (Manual) Seg Neutrophils # Lymphocytes # (Manual) PT INR APTT D-Dimer Heparin Anti-Xa Level POC ABG pH POC ABG pCO2 45.6 H POC ABG pO2 135 H Sodium Potassium Chloride Carbon Dioxide BUN Creatinine Glucose POC Glucose 208 H 223 H Lactic Acid Calcium Magnesium AST Alkaline Phosphatase Total Creatine Kinase CK-MB (CK-2) Troponin T C-Reactive Protein Total Protein Albumin Cholesterol LDL Cholesterol Direct HDL Cholesterol Free T4 Urine WBC (Auto) Urine Creatinine Urine Total Protein Crossmatch 09/01/18 09/01/18 09/01/18 05:18 05:19 05:19 WBC RBC 3.08 L Hgb 8.5 L Hct 25.6 L MCV 83 L MCH MCHC RDW 18.7 H Lymph % (Auto) [place] % (Auto) 7.9 H Eos % (Auto) 6.1 H Lymph # [place] # Eos # Seg Neutrophils % Lymphocytes % (Manual) Seg Neutrophils # Lymphocytes # (Manual) PT INR APTT D-Dimer Heparin Anti-Xa Level POC ABG pH POC ABG pCO2 POC ABG pO2 Sodium Potassium Chloride 107.9 H Carbon Dioxide BUN 21 H Creatinine 0.7 L Glucose 188 H POC Glucose 236 H Lactic Acid Calcium Magnesium AST Alkaline Phosphatase Total Creatine Kinase CK-MB (CK-2) Troponin T C-Reactive Protein Total Protein Albumin Cholesterol LDL Cholesterol Direct HDL Cholesterol Free T4 Urine WBC (Auto) Urine Creatinine Urine Total Protein Crossmatch 09/01/18 09/01/18 09/01/18 09:29 14:25 18:20 WBC RBC Hgb Hct MCV MCH MCHC RDW Lymph % (Auto) [place] % (Auto) Eos % (Auto) Lymph # [place] # Eos # Seg Neutrophils % Lymphocytes % (Manual) Seg Neutrophils # Lymphocytes # (Manual) PT INR APTT D-Dimer Heparin Anti-Xa Level POC ABG pH POC ABG pCO2 POC ABG pO2 Sodium Potassium Chloride Carbon Dioxide BUN Creatinine Glucose POC Glucose 231 H 294 H 215 H Lactic Acid Calcium Magnesium AST Alkaline Phosphatase Total Creatine Kinase CK-MB (CK-2) Troponin T C-Reactive Protein Total Protein Albumin Cholesterol LDL Cholesterol Direct HDL Cholesterol Free T4 Urine WBC (Auto) Urine Creatinine Urine Total Protein Crossmatch 09/01/18 09/02/18 09/02/18 21:21 03:28 05:25 WBC RBC Hgb Hct MCV MCH MCHC RDW Lymph % (Auto) [place] % (Auto) Eos % (Auto) Lymph # [place] # Eos # Seg Neutrophils % Lymphocytes % (Manual) Seg Neutrophils # Lymphocytes # (Manual) PT INR APTT D-Dimer Heparin Anti-Xa Level POC ABG pH POC ABG pCO2 POC ABG pO2 Sodium Potassium Chloride Carbon Dioxide BUN Creatinine Glucose POC Glucose 236 H 194 H 183 H Lactic Acid Calcium Magnesium AST Alkaline Phosphatase Total Creatine Kinase CK-MB (CK-2) Troponin T C-Reactive Protein Total Protein Albumin Cholesterol LDL Cholesterol Direct HDL Cholesterol Free T4 Urine WBC (Auto) Urine Creatinine Urine Total Protein Crossmatch 09/02/18 09:16 WBC RBC Hgb Hct MCV MCH MCHC RDW Lymph % (Auto) [place] % (Auto) Eos % (Auto) Lymph # [place] # Eos # Seg Neutrophils % Lymphocytes % (Manual) Seg Neutrophils # Lymphocytes # (Manual) PT INR APTT D-Dimer Heparin Anti-Xa Level POC ABG pH POC ABG pCO2 POC ABG pO2 Sodium Potassium Chloride Carbon Dioxide BUN Creatinine Glucose POC Glucose 251 H Lactic Acid Calcium Magnesium AST Alkaline Phosphatase Total Creatine Kinase CK-MB (CK-2) Troponin T C-Reactive Protein Total Protein Albumin Cholesterol LDL Cholesterol Direct HDL Cholesterol Free T4 Urine WBC (Auto) Urine Creatinine Urine Total Protein Crossmatch Chest x-ray: pending Allied health notes reviewed: nursing
[2018-09-02] MEDS: LOVENOX SUB-Q SCH (21:23)
[2018-09-02] MEDS: LANTUS SUB-Q SCH (21:24)
[2018-09-03] MEDS: HumaLOG SUB-Q SCH ×6 (02:00→21:55)
[2018-09-03] MEDS: APRESOLINE PO SCH ×3 (06:00→22:00)
--- NOTE | 2018-09-03 08:22 | Progress Note ---
Assessment and Plan Acute hypoxemic respiratory failure on chronic on MVS . s/p Tracheostomy Status post cardiac arrest. Seizure disorder with breakthrough seizures. History of diabetes. History of cerebrovascular accident. Oropharyngeal dysphagia. History of seizures. Hypernatremia -Tracheostomy care, airway clearance, secretion management -Continue free water flushes for hypernatremia -Continue all current care as documented below -Adequate gas exchange -Weaning per protocol -Will need LTACH for ventilator weaning. -Hospice evalaution is also acceptable in this clinical scenario, family are resistant to this. - Continue MVS - Lung protective strategies - VAP bundle addressed - SBTs daily as tolerated -Supportive transfusions, to keep HgB >7g/dL - Continue Keppra for seizures with prn ativan IV for breakthrough - Continue Stress ulcer & VTE prophylaxis - Continue bronchodilators with pulmonary hygiene per RT - Continue to wean supplemental oxygen to keep O2 sats 88-90% - Continue chronic home medications - Replete electrolytes as indicated - Monitor renal indices closely - Avoid nephrotoxic agents, adjust all medications for CrCL - Strict intake and output monitoring - Continue enteral nutrition as tolerated - Continue accuchecks with glycemic control - Target glucose of 140-180 mg/dL - Maintenance of sleep -wake cycle - Mobility as tolerated by hemodynamics - Influenza and pneumonia vaccination per protocol ....discussed with RT/RN PROGNOSIS: GUARDED -POOR CONDITION: CRITICAL CODE STATUS: FULL CODE The high probability of a clinically significant, sudden or life-threatening deterioration of the [respiratory, neurology, renal] system(s) required my full and direct attention, intervention and personal management. The aggregate critical care time was [31] minutes without overlap. Time includes spent on; [x] Data Review and interpretation [x] Patient assessment and monitoring of vital signs [x] Documentation [x] Medication orders and management Subjective Date of service: 09/03/18 Principal diagnosis: Acute hypoxemic resp failure; S/P cardiac arrest; Seizures; DM II; H/O CVA Interval history: Patient is seen today for: Acute hypoxemic respiratory failure on chronic; Status post cardiac arrest; Seizure disorder with breakthrough seizures; History of diabetes; History of cerebrovascular accident; Oropharyngeal dysphagia; History of seizures. Seen and examined at bedside; 24hour events reviewed; nursing and respiratory care staff consulted; no adverse overnight events reported to me; remains on MVS s/p tracheostomy; AMS is persistent; tolerating PSV better but still has apneic episodes that kick him back to full support; No emesis or overt aspiration and no seizure activity. Objective Vital Signs - 12hr 09/02/18 09/02/18 09/02/18 20:31 20:38 20:47 Temperature Pulse Rate 78 75 73 Pulse Rate [ From Monitor] Pulse Rate [ Right Dorsalis Pedis] Respiratory 13 13 Rate Blood Pressure 134/63 134/63 134/63 O2 Sat by Pulse 100 100 100 Oximetry 09/02/18 09/02/18 09/02/18 21:00 21:03 21:28 Temperature Pulse Rate 73 75 73 Pulse Rate [ From Monitor] Pulse Rate [ Right Dorsalis Pedis] Respiratory 13 14 Rate Blood Pressure 135/63 135/63 O2 Sat by Pulse 100 100 Oximetry 09/02/18 09/02/18 09/02/18 21:30 22:00 22:31 Temperature Pulse Rate 76 70 71 Pulse Rate [ From Monitor] Pulse Rate [ Right Dorsalis Pedis] Respiratory 14 12 14 Rate Blood Pressure 142/67 142/77 157/78 O2 Sat by Pulse 100 100 100 Oximetry 09/02/18 09/02/18 09/03/18 23:00 23:30 00:00 Temperature 98.3 F Pulse Rate 73 72 73 Pulse Rate [ 68 From Monitor] Pulse Rate [ 68 Right Dorsalis Pedis] Respiratory 14 12 15 Rate Blood Pressure 145/82 164/76 153/77 O2 Sat by Pulse 100 100 100 Oximetry 09/03/18 09/03/18 09/03/18 00:12 00:30 01:00 Temperature Pulse Rate 67 66 70 Pulse Rate [ From Monitor] Pulse Rate [ Right Dorsalis Pedis] Respiratory 13 10 L Rate Blood Pressure 153/77 152/73 132/74 O2 Sat by Pulse 100 100 100 Oximetry 09/03/18 09/03/18 09/03/18 01:31 02:00 02:31 Temperature Pulse Rate 68 69 72 Pulse Rate [ From Monitor] Pulse Rate [ Right Dorsalis Pedis] Respiratory 11 L 13 13 Rate Blood Pressure 127/73 133/73 133/70 O2 Sat by Pulse 100 100 98 Oximetry 09/03/18 09/03/18 09/03/18 03:01 03:30 03:36 Temperature 98.3 F Pulse Rate 70 71 Pulse Rate [ From Monitor] Pulse Rate [ Right Dorsalis Pedis] Respiratory 14 13 Rate Blood Pressure 151/75 155/76 O2 Sat by Pulse 98 97 Oximetry 09/03/18 09/03/18 09/03/18 03:39 04:00 04:30 Temperature Pulse Rate 71 72 Pulse Rate [ 72 From Monitor] Pulse Rate [ 72 Right Dorsalis Pedis] Respiratory 14 12 Rate Blood Pressure 156/77 136/72 O2 Sat by Pulse 100 98 99 Oximetry 09/03/18 09/03/18 09/03/18 04:31 05:00 05:31 Temperature Pulse Rate 68 78 65 Pulse Rate [ From Monitor] Pulse Rate [ Right Dorsalis Pedis] Respiratory 11 L 17 Rate Blood Pressure 136/72 168/83 141/73 O2 Sat by Pulse 100 99 95 Oximetry 09/03/18 09/03/18 09/03/18 06:01 06:30 07:00 Temperature Pulse Rate 67 69 70 Pulse Rate [ From Monitor] Pulse Rate [ Right Dorsalis Pedis] Respiratory 15 14 15 Rate Blood Pressure 157/72 140/71 135/68 O2 Sat by Pulse 97 99 100 Oximetry 09/03/18 09/03/18 09/03/18 07:30 07:46 07:52 Temperature 97.9 F Pulse Rate 69 67 Pulse Rate [ From Monitor] Pulse Rate [ Right Dorsalis Pedis] Respiratory 17 Rate Blood Pressure 138/72 157/72 O2 Sat by Pulse 100 97 Oximetry 09/03/18 08:00 Temperature Pulse Rate 69 Pulse Rate [ From Monitor] Pulse Rate [ Right Dorsalis Pedis] Respiratory 14 Rate Blood Pressure 140/80 O2 Sat by Pulse 100 Oximetry Constitutional: no acute distress, other (Elderly looking AAM, normocephalic resting in bed on MVS) Eyes: non-icteric ENT: oropharynx moist Neck: supple, no lymphadenopathy, no JVD, other (s/p tracheostomy) Effort: mildly labored Ascultation: Bilateral: diminished breath sounds, rhonchi Percussion: Bilateral: not dull Cardiovascular: regular rate and rhythm, other (S1,S2) Gastrointestinal: normoactive bowel sounds, soft, non-tender, non-distended Integumentary: normal Extremities: no cyanosis, pulses normal, no ischemia or petechiae, edema (trace ) Neurologic: unable to assess, other (encephalopthic) Psychiatric: other (unable to assess) CBC and BMP: 09/03/18 07:52 06/06/19 07:52 ABG, PT/INR, D-dimer: ABG POC ABG pH 7.389 (7.35-7.45) 08/31/18 22:25 POC ABG pCO2 45.6 (35-45) H 08/31/18 22:25 POC ABG pO2 135 (80-105) H 08/31/18 22:25 POC ABG HCO3 27.5 (22-26 mml/L) 08/31/18 22:25 POC ABG Total CO2 29 (23-27mmol/L) 08/31/18 22:25 POC ABG O2 Sat 99 08/31/18 22:25 PT/INR, D-dimer PT 16.5 Sec. (12.2-14.9) H 08/13/18 00:47 INR 1.25 (0.87-1.13) H 08/13/18 00:47 2742.50 ng/mlDDU (0-234) H 08/13/18 20:07 Abnormal lab findings: Abnormal Labs 08/12/18 08/12/18 08/12/18 21:44 21:44 21:44 WBC 15.5 H RBC 3.12 L Hgb 8.8 L Hct 28.9 L MCV MCH MCHC 31 L RDW 19.5 H Lymph % (Auto) [place] % (Auto) Eos % (Auto) Lymph # [place] # Eos # Seg Neutrophils % Lymphocytes % (Manual) 48.0 H Seg Neutrophils # Lymphocytes # (Manual) 7.4 H PT 17.8 H INR 1.37 H APTT D-Dimer Heparin Anti-Xa Level POC ABG pH POC ABG pCO2 POC ABG pO2 Sodium 159 H Potassium Chloride 118.5 H Carbon Dioxide BUN 34 H Creatinine Glucose 161 H POC Glucose Lactic Acid Calcium Magnesium AST Alkaline Phosphatase Total Creatine Kinase CK-MB (CK-2) Troponin T 0.105 H* C-Reactive Protein Total Protein Albumin Cholesterol LDL Cholesterol Direct HDL Cholesterol Free T4 Urine WBC (Auto) Urine Creatinine Urine Total Protein Crossmatch 08/13/18 08/13/18 08/13/18 00:32 00:47 00:47 WBC RBC Hgb 9.2 L Hct 29.6 L MCV MCH MCHC RDW Lymph % (Auto) [place] % (Auto) Eos % (Auto) Lymph # [place] # Eos # Seg Neutrophils % Lymphocytes % (Manual) Seg Neutrophils # Lymphocytes # (Manual) PT 16.5 H INR 1.25 H APTT 37.3 H D-Dimer Heparin Anti-Xa Level POC ABG pH POC ABG pCO2 POC ABG pO2 Sodium Potassium Chloride Carbon Dioxide BUN Creatinine Glucose POC Glucose Lactic Acid Calcium Magnesium AST Alkaline Phosphatase Total Creatine Kinase 211 H CK-MB (CK-2) 7.7 H Troponin T 0.169 H* D C-Reactive Protein Total Protein Albumin Cholesterol 46 L LDL Cholesterol Direct 17 L HDL Cholesterol 6 L Free T4 Urine WBC (Auto) Urine Creatinine Urine Total Protein Crossmatch 08/13/18 08/13/18 08/13/18 00:50 02:25 05:34 WBC RBC Hgb Hct MCV MCH MCHC RDW Lymph % (Auto) [place] % (Auto) Eos % (Auto) Lymph # [place] # Eos # Seg Neutrophils % Lymphocytes % (Manual) Seg Neutrophils # Lymphocytes # (Manual) PT INR APTT D-Dimer Heparin Anti-Xa Level POC ABG pH 7.503 H POC ABG pCO2 POC ABG pO2 253 H Sodium Potassium Chloride Carbon Dioxide BUN Creatinine Glucose POC Glucose Lactic Acid Calcium Magnesium AST Alkaline Phosphatase Total Creatine Kinase 311 H CK-MB (CK-2) 10.4 H Troponin T 0.283 H* D C-Reactive Protein Total Protein Albumin Cholesterol LDL Cholesterol Direct HDL Cholesterol Free T4 Urine WBC (Auto) > 182.0 H Urine Creatinine Urine Total Protein Crossmatch 08/13/18 08/13/18 08/13/18 06:35 10:10 10:10 WBC RBC Hgb Hct MCV MCH MCHC RDW Lymph % (Auto) [place] % (Auto) Eos % (Auto) Lymph # [place] # Eos # Seg Neutrophils % Lymphocytes % (Manual) Seg Neutrophils # Lymphocytes # (Manual) PT INR APTT D-Dimer Heparin Anti-Xa Level POC ABG pH 7.554 H POC ABG pCO2 33.5 L POC ABG pO2 220 H Sodium 158 H Potassium Chloride 117.1 H Carbon Dioxide BUN 53 H Creatinine 2.0 H Glucose 247 H POC Glucose Lactic Acid Calcium 8.2 L Magnesium AST Alkaline Phosphatase Total Creatine Kinase 309 H CK-MB (CK-2) 4.1 H Troponin T 0.470 H* D C-Reactive Protein Total Protein Albumin Cholesterol LDL Cholesterol Direct HDL Cholesterol Free T4 Urine WBC (Auto) Urine Creatinine Urine Total Protein Crossmatch 08/13/18 08/13/18 08/13/18 12:53 12:53 17:55 WBC RBC Hgb Hct MCV MCH MCHC RDW Lymph % (Auto) [place] % (Auto) Eos % (Auto) Lymph # [place] # Eos # Seg Neutrophils % Lymphocytes % (Manual) Seg Neutrophils # Lymphocytes # (Manual) PT INR APTT D-Dimer Heparin Anti-Xa Level POC ABG pH POC ABG pCO2 POC ABG pO2 Sodium Potassium Chloride Carbon Dioxide BUN Creatinine Glucose POC Glucose 308 H Lactic Acid 2.80 H* Calcium Magnesium 2.50 H AST Alkaline Phosphatase Total Creatine Kinase CK-MB (CK-2) Troponin T C-Reactive Protein 16.90 H Total Protein Albumin Cholesterol LDL Cholesterol Direct HDL Cholesterol Free T4 Urine WBC (Auto) Urine Creatinine Urine Total Protein Crossmatch 08/13/18 08/13/18 08/13/18 20:07 21:16 23:17 WBC RBC Hgb Hct MCV MCH MCHC RDW Lymph % (Auto) [place] % (Auto) Eos % (Auto) Lymph # [place] # Eos # Seg Neutrophils % Lymphocytes % (Manual) Seg Neutrophils # Lymphocytes # (Manual) PT INR APTT D-Dimer 2742.50 H Heparin Anti-Xa Level POC ABG pH 7.483 H POC ABG pCO2 30.8 L POC ABG pO2 150 H Sodium Potassium Chloride Carbon Dioxide BUN Creatinine Glucose POC Glucose 245 H Lactic Acid Calcium Magnesium AST Alkaline Phosphatase Total Creatine Kinase CK-MB (CK-2) Troponin T C-Reactive Protein Total Protein Albumin Cholesterol LDL Cholesterol Direct HDL Cholesterol Free T4 Urine WBC (Auto) Urine Creatinine Urine Total Protein Crossmatch 08/14/18 08/14/18 08/14/18 04:03 04:03 04:56 WBC 18.2 H RBC 2.62 L Hgb 7.3 L Hct 24.5 L MCV MCH MCHC RDW 18.9 H Lymph % (Auto) [place] % (Auto) Eos % (Auto) Lymph # [place] # 1.2 H Eos # Seg Neutrophils % 79.4 H Lymphocytes % (Manual) Seg Neutrophils # 14.5 H Lymphocytes # (Manual) PT INR APTT D-Dimer Heparin Anti-Xa Level POC ABG pH POC ABG pCO2 33.5 L POC ABG pO2 153 H Sodium 152 H Potassium 3.4 L Chloride 113.8 H Carbon Dioxide BUN 72 H Creatinine 2.7 H Glucose 239 H POC Glucose Lactic Acid Calcium 7.6 L Magnesium AST 50 H Alkaline Phosphatase 219 H Total Creatine Kinase CK-MB (CK-2) Troponin T 0.409 H* C-Reactive Protein Total Protein 6.2 L Albumin 1.9 L Cholesterol LDL Cholesterol Direct HDL Cholesterol Free T4 Urine WBC (Auto) Urine Creatinine Urine Total Protein Crossmatch 08/14/18 08/14/18 08/14/18 05:18 13:38 15:35 WBC RBC Hgb Hct MCV MCH MCHC RDW Lymph % (Auto) [place] % (Auto) Eos % (Auto) Lymph # [place] # Eos # Seg Neutrophils % Lymphocytes % (Manual) Seg Neutrophils # Lymphocytes # (Manual) PT INR APTT D-Dimer Heparin Anti-Xa Level POC ABG pH POC ABG pCO2 POC ABG pO2 Sodium 150 H Potassium 3.2 L Chloride 114.5 H Carbon Dioxide BUN 69 H Creatinine 2.3 H Glucose 247 H POC Glucose 242 H 296 H Lactic Acid Calcium 7.2 L Magnesium AST Alkaline Phosphatase Total Creatine Kinase CK-MB (CK-2) Troponin T C-Reactive Protein Total Protein Albumin Cholesterol LDL Cholesterol Direct HDL Cholesterol Free T4 Urine WBC (Auto) Urine Creatinine Urine Total Protein Crossmatch 08/14/18 08/14/18 08/14/18 17:01 17:20 23:47 WBC RBC Hgb Hct MCV MCH MCHC RDW Lymph % (Auto) [place] % (Auto) Eos % (Auto) Lymph # [place] # Eos # Seg Neutrophils % Lymphocytes % (Manual) Seg Neutrophils # Lymphocytes # (Manual) PT INR APTT D-Dimer Heparin Anti-Xa Level POC ABG pH POC ABG pCO2 POC ABG pO2 Sodium Potassium Chloride Carbon Dioxide BUN Creatinine Glucose POC Glucose 261 H 280 H Lactic Acid Calcium Magnesium AST Alkaline Phosphatase Total Creatine Kinase CK-MB (CK-2) Troponin T C-Reactive Protein Total Protein Albumin Cholesterol LDL Cholesterol Direct HDL Cholesterol Free T4 Urine WBC (Auto) Urine Creatinine 60.9 H Urine Total Protein 64 H Crossmatch 08/15/18 08/15/18 08/15/18 04:05 04:05 04:05 WBC RBC Hgb 6.3 L Hct 19.7 L* MCV MCH MCHC RDW Lymph % (Auto) [place] % (Auto) Eos % (Auto) Lymph # [place] # Eos # Seg Neutrophils % Lymphocytes % (Manual) Seg Neutrophils # Lymphocytes # (Manual) PT INR APTT D-Dimer Heparin Anti-Xa Level 0.17 L POC ABG pH POC ABG pCO2 POC ABG pO2 Sodium 146 H Potassium 3.0 L Chloride 110.6 H Carbon Dioxide BUN 64 H Creatinine 2.2 H Glucose 231 H POC Glucose Lactic Acid Calcium 7.1 L Magnesium AST Alkaline Phosphatase Total Creatine Kinase CK-MB (CK-2) Troponin T C-Reactive Protein Total Protein Albumin Cholesterol LDL Cholesterol Direct HDL Cholesterol Free T4 Urine WBC (Auto) Urine Creatinine Urine Total Protein Crossmatch 08/15/18 08/15/18 08/15/18 05:21 05:26 06:35 WBC RBC Hgb Hct MCV MCH MCHC RDW Lymph % (Auto) [place] % (Auto) Eos % (Auto) Lymph # [place] # Eos # Seg Neutrophils % Lymphocytes % (Manual) Seg Neutrophils # Lymphocytes # (Manual) PT INR APTT 79.0 H* D-Dimer Heparin Anti-Xa Level POC ABG pH 7.494 H POC ABG pCO2 POC ABG pO2 155 H Sodium Potassium Chloride Carbon Dioxide BUN Creatinine Glucose POC Glucose 271 H Lactic Acid Calcium Magnesium AST Alkaline Phosphatase Total Creatine Kinase CK-MB (CK-2) Troponin T C-Reactive Protein Total Protein Albumin Cholesterol LDL Cholesterol Direct HDL Cholesterol Free T4 Urine WBC (Auto) Urine Creatinine Urine Total Protein Crossmatch 08/15/18 08/15/18 08/15/18 12:10 15:31 17:27 WBC RBC Hgb Hct MCV MCH MCHC RDW Lymph % (Auto) [place] % (Auto) Eos % (Auto) Lymph # [place] # Eos # Seg Neutrophils % Lymphocytes % (Manual) Seg Neutrophils # Lymphocytes # (Manual) PT INR APTT D-Dimer Heparin Anti-Xa Level POC ABG pH POC ABG pCO2 POC ABG pO2 Sodium Potassium Chloride Carbon Dioxide BUN Creatinine Glucose POC Glucose 301 H 287 H Lactic Acid Calcium Magnesium AST Alkaline Phosphatase Total Creatine Kinase CK-MB (CK-2) Troponin T C-Reactive Protein Total Protein Albumin Cholesterol LDL Cholesterol Direct HDL Cholesterol Free T4 Urine WBC (Auto) Urine Creatinine Urine Total Protein Crossmatch See Detail 08/15/18 08/15/18 08/16/18 21:41 23:45 04:13 WBC RBC Hgb Hct MCV MCH MCHC RDW Lymph % (Auto) [place] % (Auto) Eos % (Auto) Lymph # [place] # Eos # Seg Neutrophils % Lymphocytes % (Manual) Seg Neutrophils # Lymphocytes # (Manual) PT INR APTT D-Dimer Heparin Anti-Xa Level 0.19 L POC ABG pH POC ABG pCO2 32.1 L POC ABG pO2 107 H Sodium Potassium Chloride Carbon Dioxide BUN Creatinine Glucose POC Glucose 163 H Lactic Acid Calcium Magnesium AST Alkaline Phosphatase Total Creatine Kinase CK-MB (CK-2) Troponin T C-Reactive Protein Total Protein Albumin Cholesterol LDL Cholesterol Direct HDL Cholesterol Free T4 Urine WBC (Auto) Urine Creatinine Urine Total Protein Crossmatch 08/16/18 08/16/18 08/16/18 04:50 05:28 11:30 WBC RBC 2.67 L Hgb 8.1 L Hct 23.4 L MCV MCH MCHC 35 H RDW 18.3 H Lymph % (Auto) [place] % (Auto) Eos % (Auto) Lymph # [place] # Eos # Seg Neutrophils % Lymphocytes % (Manual) Seg Neutrophils # Lymphocytes # (Manual) PT INR APTT D-Dimer Heparin Anti-Xa Level 0.19 L POC ABG pH POC ABG pCO2 POC ABG pO2 Sodium Potassium Chloride Carbon Dioxide BUN Creatinine Glucose POC Glucose 141 H Lactic Acid Calcium Magnesium AST Alkaline Phosphatase Total Creatine Kinase CK-MB (CK-2) Troponin T C-Reactive Protein Total Protein Albumin Cholesterol LDL Cholesterol Direct HDL Cholesterol Free T4 Urine WBC (Auto) Urine Creatinine Urine Total Protein Crossmatch 08/16/18 08/16/18 08/16/18 11:30 12:00 12:01 WBC RBC Hgb Hct MCV MCH MCHC RDW Lymph % (Auto) [place] % (Auto) Eos % (Auto) Lymph # [place] # Eos # Seg Neutrophils % Lymphocytes % (Manual) Seg Neutrophils # Lymphocytes # (Manual) PT INR APTT D-Dimer Heparin Anti-Xa Level 0.15 L POC ABG pH POC ABG pCO2 POC ABG pO2 Sodium Potassium Chloride 107.8 H Carbon Dioxide 21 L BUN 47 H Creatinine 1.6 H Glucose 221 H POC Glucose 267 H Lactic Acid Calcium 6.9 L Magnesium AST Alkaline Phosphatase Total Creatine Kinase CK-MB (CK-2) Troponin T C-Reactive Protein Total Protein Albumin Cholesterol LDL Cholesterol Direct HDL Cholesterol Free T4 Urine WBC (Auto) Urine Creatinine Urine Total Protein Crossmatch 08/16/18 08/16/18 08/16/18 17:23 20:01 23:13 WBC RBC Hgb Hct MCV MCH MCHC RDW Lymph % (Auto) [place] % (Auto) Eos % (Auto) Lymph # [place] # Eos # Seg Neutrophils % Lymphocytes % (Manual) Seg Neutrophils # Lymphocytes # (Manual) PT INR APTT D-Dimer Heparin Anti-Xa Level 0.26 L POC ABG pH POC ABG pCO2 POC ABG pO2 Sodium Potassium Chloride Carbon Dioxide BUN Creatinine Glucose POC Glucose 245 H 256 H Lactic Acid Calcium Magnesium AST Alkaline Phosphatase Total Creatine Kinase CK-MB (CK-2) Troponin T C-Reactive Protein Total Protein Albumin Cholesterol LDL Cholesterol Direct HDL Cholesterol Free T4 Urine WBC (Auto) Urine Creatinine Urine Total Protein Crossmatch 08/17/18 08/17/18 08/17/18 04:29 04:55 05:34 WBC RBC Hgb 8.2 L Hct 24.3 L MCV MCH MCHC RDW Lymph % (Auto) [place] % (Auto) Eos % (Auto) Lymph # [place] # Eos # Seg Neutrophils % Lymphocytes % (Manual) Seg Neutrophils # Lymphocytes # (Manual) PT INR APTT D-Dimer Heparin Anti-Xa Level POC ABG pH POC ABG pCO2 32.4 L POC ABG pO2 108 H Sodium Potassium Chloride Carbon Dioxide BUN Creatinine Glucose POC Glucose 268 H Lactic Acid Calcium Magnesium AST Alkaline Phosphatase Total Creatine Kinase CK-MB (CK-2) Troponin T C-Reactive Protein Total Protein Albumin Cholesterol LDL Cholesterol Direct HDL Cholesterol Free T4 Urine WBC (Auto) Urine Creatinine Urine Total Protein Crossmatch 08/17/18 08/17/18 08/17/18 11:54 13:44 17:24 WBC RBC Hgb Hct MCV MCH MCHC RDW Lymph % (Auto) [place] % (Auto) Eos % (Auto) Lymph # [place] # Eos # Seg Neutrophils % Lymphocytes % (Manual) Seg Neutrophils # Lymphocytes # (Manual) PT INR APTT D-Dimer Heparin Anti-Xa Level POC ABG pH POC ABG pCO2 32.7 L POC ABG pO2 142 H Sodium Potassium Chloride Carbon Dioxide BUN Creatinine Glucose POC Glucose 295 H 283 H Lactic Acid Calcium Magnesium AST Alkaline Phosphatase Total Creatine Kinase CK-MB (CK-2) Troponin T C-Reactive Protein Total Protein Albumin Cholesterol LDL Cholesterol Direct HDL Cholesterol Free T4 Urine WBC (Auto) Urine Creatinine Urine Total Protein Crossmatch 08/18/18 08/18/18 08/18/18 00:05 00:59 04:15 WBC RBC Hgb Hct MCV MCH MCHC RDW Lymph % (Auto) [place] % (Auto) Eos % (Auto) Lymph # [place] # Eos # Seg Neutrophils % Lymphocytes % (Manual) Seg Neutrophils # Lymphocytes # (Manual) PT INR APTT D-Dimer Heparin Anti-Xa Level POC ABG pH POC ABG pCO2 POC ABG pO2 115 H Sodium Potassium Chloride Carbon Dioxide BUN Creatinine Glucose POC Glucose 247 H 251 H Lactic Acid Calcium Magnesium AST Alkaline Phosphatase Total Creatine Kinase CK-MB (CK-2) Troponin T C-Reactive Protein Total Protein Albumin Cholesterol LDL Cholesterol Direct HDL Cholesterol Free T4 Urine WBC (Auto) Urine Creatinine Urine Total Protein Crossmatch 08/18/18 08/18/18 08/18/18 05:02 12:20 17:51 WBC RBC Hgb Hct MCV MCH MCHC RDW Lymph % (Auto) [place] % (Auto) Eos % (Auto) Lymph # [place] # Eos # Seg Neutrophils % Lymphocytes % (Manual) Seg Neutrophils # Lymphocytes # (Manual) PT INR APTT D-Dimer Heparin Anti-Xa Level POC ABG pH POC ABG pCO2 POC ABG pO2 Sodium Potassium Chloride Carbon Dioxide BUN Creatinine Glucose POC Glucose 282 H 209 H 261 H Lactic Acid Calcium Magnesium AST Alkaline Phosphatase Total Creatine Kinase CK-MB (CK-2) Troponin T C-Reactive Protein Total Protein Albumin Cholesterol LDL Cholesterol Direct HDL Cholesterol Free T4 Urine WBC (Auto) Urine Creatinine Urine Total Protein Crossmatch 08/18/18 08/19/18 08/19/18 23:30 04:54 05:16 WBC RBC 2.62 L Hgb 7.5 L Hct 23.1 L MCV MCH MCHC RDW 18.1 H Lymph % (Auto) [place] % (Auto) Eos % (Auto) Lymph # [place] # Eos # Seg Neutrophils % Lymphocytes % (Manual) Seg Neutrophils # Lymphocytes # (Manual) PT INR APTT D-Dimer Heparin Anti-Xa Level POC ABG pH POC ABG pCO2 POC ABG pO2 58 L Sodium Potassium Chloride Carbon Dioxide BUN Creatinine Glucose POC Glucose 231 H Lactic Acid Calcium Magnesium AST Alkaline Phosphatase Total Creatine Kinase CK-MB (CK-2) Troponin T C-Reactive Protein Total Protein Albumin Cholesterol LDL Cholesterol Direct HDL Cholesterol Free T4 Urine WBC (Auto) Urine Creatinine Urine Total Protein Crossmatch 08/19/18 08/19/18 08/19/18 05:16 05:40 11:56 WBC RBC Hgb Hct MCV MCH MCHC RDW Lymph % (Auto) [place] % (Auto) Eos % (Auto) Lymph # [place] # Eos # Seg Neutrophils % Lymphocytes % (Manual) Seg Neutrophils # Lymphocytes # (Manual) PT INR APTT D-Dimer Heparin Anti-Xa Level POC ABG pH POC ABG pCO2 POC ABG pO2 Sodium 152 H D Potassium Chloride 118.7 H Carbon Dioxide BUN 38 H Creatinine Glucose 220 H POC Glucose 227 H 213 H Lactic Acid Calcium 8.1 L D Magnesium AST Alkaline Phosphatase Total Creatine Kinase CK-MB (CK-2) Troponin T C-Reactive Protein Total Protein Albumin Cholesterol LDL Cholesterol Direct HDL Cholesterol Free T4 Urine WBC (Auto) Urine Creatinine Urine Total Protein Crossmatch 08/19/18 08/19/18 08/20/18 18:37 23:32 04:38 WBC RBC Hgb Hct MCV MCH MCHC RDW Lymph % (Auto) [place] % (Auto) Eos % (Auto) Lymph # [place] # Eos # Seg Neutrophils % Lymphocytes % (Manual) Seg Neutrophils # Lymphocytes # (Manual) PT INR APTT D-Dimer Heparin Anti-Xa Level POC ABG pH POC ABG pCO2 POC ABG pO2 140 H Sodium Potassium Chloride Carbon Dioxide BUN Creatinine Glucose POC Glucose 227 H 245 H Lactic Acid Calcium Magnesium AST Alkaline Phosphatase Total Creatine Kinase CK-MB (CK-2) Troponin T C-Reactive Protein Total Protein Albumin Cholesterol LDL Cholesterol Direct HDL Cholesterol Free T4 Urine WBC (Auto) Urine Creatinine Urine Total Protein Crossmatch 08/20/18 08/20/18 08/20/18 05:31 05:37 05:37 WBC RBC 2.60 L Hgb 7.5 L Hct 22.9 L MCV MCH MCHC RDW 18.4 H Lymph % (Auto) [place] % (Auto) Eos % (Auto) Lymph # [place] # Eos # Seg Neutrophils % Lymphocytes % (Manual) Seg Neutrophils # Lymphocytes # (Manual) PT INR APTT D-Dimer Heparin Anti-Xa Level POC ABG pH POC ABG pCO2 POC ABG pO2 Sodium 150 H Potassium Chloride 115.6 H Carbon Dioxide BUN 38 H Creatinine Glucose 276 H POC Glucose 266 H Lactic Acid Calcium 7.9 L Magnesium AST Alkaline Phosphatase Total Creatine Kinase CK-MB (CK-2) Troponin T C-Reactive Protein Total Protein Albumin Cholesterol LDL Cholesterol Direct HDL Cholesterol Free T4 Urine WBC (Auto) Urine Creatinine Urine Total Protein Crossmatch 08/20/18 08/20/18 08/20/18 14:01 18:20 23:11 WBC RBC Hgb Hct MCV MCH MCHC RDW Lymph % (Auto) [place] % (Auto) Eos % (Auto) Lymph # [place] # Eos # Seg Neutrophils % Lymphocytes % (Manual) Seg Neutrophils # Lymphocytes # (Manual) PT INR APTT D-Dimer Heparin Anti-Xa Level POC ABG pH POC ABG pCO2 POC ABG pO2 Sodium Potassium Chloride Carbon Dioxide BUN Creatinine Glucose POC Glucose 305 H 271 H 218 H Lactic Acid Calcium Magnesium AST Alkaline Phosphatase Total Creatine Kinase CK-MB (CK-2) Troponin T C-Reactive Protein Total Protein Albumin Cholesterol LDL Cholesterol Direct HDL Cholesterol Free T4 Urine WBC (Auto) Urine Creatinine Urine Total Protein Crossmatch 08/21/18 08/21/18 08/21/18 04:41 04:41 06:20 WBC RBC 2.65 L Hgb 7.6 L Hct 23.3 L MCV MCH MCHC RDW 19.1 H Lymph % (Auto) [place] % (Auto) Eos % (Auto) Lymph # [place] # Eos # Seg Neutrophils % Lymphocytes % (Manual) Seg Neutrophils # Lymphocytes # (Manual) PT INR APTT D-Dimer Heparin Anti-Xa Level POC ABG pH POC ABG pCO2 POC ABG pO2 Sodium 150 H Potassium Chloride 117.8 H Carbon Dioxide BUN 37 H Creatinine Glucose 233 H POC Glucose 262 H Lactic Acid Calcium 7.9 L Magnesium AST Alkaline Phosphatase Total Creatine Kinase CK-MB (CK-2) Troponin T C-Reactive Protein Total Protein Albumin Cholesterol LDL Cholesterol Direct HDL Cholesterol Free T4 Urine WBC (Auto) Urine Creatinine Urine Total Protein Crossmatch 08/21/18 08/21/18 08/21/18 10:18 12:04 12:36 WBC RBC Hgb Hct MCV MCH MCHC RDW Lymph % (Auto) [place] % (Auto) Eos % (Auto) Lymph # [place] # Eos # Seg Neutrophils % Lymphocytes % (Manual) Seg Neutrophils # Lymphocytes # (Manual) PT INR APTT D-Dimer Heparin Anti-Xa Level POC ABG pH POC ABG pCO2 POC ABG pO2 Sodium Potassium Chloride Carbon Dioxide BUN Creatinine Glucose POC Glucose 256 H 245 H 255 H Lactic Acid Calcium Magnesium AST Alkaline Phosphatase Total Creatine Kinase CK-MB (CK-2) Troponin T C-Reactive Protein Total Protein Albumin Cholesterol LDL Cholesterol Direct HDL Cholesterol Free T4 Urine WBC (Auto) Urine Creatinine Urine Total Protein Crossmatch 08/21/18 08/21/18 08/22/18 17:36 23:29 05:01 WBC RBC Hgb Hct MCV MCH MCHC RDW Lymph % (Auto) [place] % (Auto) Eos % (Auto) Lymph # [place] # Eos # Seg Neutrophils % Lymphocytes % (Manual) Seg Neutrophils # Lymphocytes # (Manual) PT INR APTT D-Dimer Heparin Anti-Xa Level POC ABG pH 7.466 H POC ABG pCO2 33.8 L POC ABG pO2 111 H Sodium Potassium Chloride Carbon Dioxide BUN Creatinine Glucose POC Glucose 263 H 268 H Lactic Acid Calcium Magnesium AST Alkaline Phosphatase Total Creatine Kinase CK-MB (CK-2) Troponin T C-Reactive Protein Total Protein Albumin Cholesterol LDL Cholesterol Direct HDL Cholesterol Free T4 Urine WBC (Auto) Urine Creatinine Urine Total Protein Crossmatch 08/22/18 08/22/18 08/22/18 05:05 12:05 12:15 WBC RBC Hgb Hct MCV MCH MCH RDW Lymph % (Auto) [place] % (Auto) Eos % (Auto) Lymph # [place] # Eos # Seg Neutrophils % Lymphocytes % (Manual) Seg Neutrophils # Lymphocytes # (Manual) PT INR APTT D-Dimer Heparin Anti-Xa Level POC ABG pH POC ABG pCO2 POC ABG pO2 Sodium 147 H Potassium Chloride 113.2 H Carbon Dioxide BUN 36 H Creatinine Glucose 249 H POC Glucose 256 H 228 H Lactic Acid Calcium 8.2 L Magnesium AST Alkaline Phosphatase Total Creatine Kinase CK-MB (CK-2) Troponin T C-Reactive Protein Total Protein Albumin Cholesterol LDL Cholesterol Direct HDL Cholesterol Free T4 Urine WBC (Auto) Urine Creatinine Urine Total Protein Crossmatch 08/22/18 08/23/18 08/23/18 17:30 00:03 05:05 WBC RBC Hgb Hct MCV MCH MCHC RDW Lymph % (Auto) [place] % (Auto) Eos % (Auto) Lymph # [place] # Eos # Seg Neutrophils % Lymphocytes % (Manual) Seg Neutrophils # Lymphocytes # (Manual) PT INR APTT D-Dimer Heparin Anti-Xa Level POC ABG pH POC ABG pCO2 POC ABG pO2 Sodium Potassium Chloride Carbon Dioxide BUN Creatinine Glucose POC Glucose 291 H 259 H 247 H Lactic Acid Calcium Magnesium AST Alkaline Phosphatase Total Creatine Kinase CK-MB (CK-2) Troponin T C-Reactive Protein Total Protein Albumin Cholesterol LDL Cholesterol Direct HDL Cholesterol Free T4 Urine WBC (Auto) Urine Creatinine Urine Total Protein Crossmatch 08/23/18 08/23/18 08/23/18 05:14 12:29 17:21 WBC RBC Hgb Hct MCV MCH MCHC RDW Lymph % (Auto) [place] % (Auto) Eos % (Auto) Lymph # [place] # Eos # Seg Neutrophils % Lymphocytes % (Manual) Seg Neutrophils # Lymphocytes # (Manual) PT INR APTT D-Dimer Heparin Anti-Xa Level POC ABG pH POC ABG pCO2 POC ABG pO2 Sodium Potassium Chloride Carbon Dioxide BUN Creatinine Glucose POC Glucose 208 H 138 H 175 H Lactic Acid Calcium Magnesium AST Alkaline Phosphatase Total Creatine Kinase CK-MB (CK-2) Troponin T C-Reactive Protein Total Protein Albumin Cholesterol LDL Cholesterol Direct HDL Cholesterol Free T4 Urine WBC (Auto) Urine Creatinine Urine Total Protein Crossmatch 08/23/18 08/24/18 08/24/18 23:36 01:00 05:50 WBC RBC 2.92 L 2.90 L Hgb 8.3 L 8.2 L Hct 25.4 L 25.2 L MCV MCH MCHC RDW 18.9 H 18.6 H Lymph % (Auto) [place] % (Auto) 9.2 H Eos % (Auto) Lymph # [place] # Eos # Seg Neutrophils % Lymphocytes % (Manual) Seg Neutrophils # Lymphocytes # (Manual) PT INR APTT D-Dimer Heparin Anti-Xa Level POC ABG pH POC ABG pCO2 POC ABG pO2 Sodium Potassium Chloride Carbon Dioxide BUN Creatinine Glucose POC Glucose 163 H Lactic Acid Calcium Magnesium AST Alkaline Phosphatase Total Creatine Kinase CK-MB (CK-2) Troponin T C-Reactive Protein Total Protein Albumin Cholesterol LDL Cholesterol Direct HDL Cholesterol Free T4 Urine WBC (Auto) Urine Creatinine Urine Total Protein Crossmatch 08/24/18 08/24/18 08/24/18 05:50 12:26 18:37 WBC RBC Hgb Hct MCV MCH MCHC RDW Lymph % (Auto) [place] % (Auto) Eos % (Auto) Lymph # [place] # Eos # Seg Neutrophils % Lymphocytes % (Manual) Seg Neutrophils # Lymphocytes # (Manual) PT INR APTT D-Dimer Heparin Anti-Xa Level POC ABG pH POC ABG pCO2 POC ABG pO2 Sodium 147 H Potassium Chloride 113.6 H Carbon Dioxide BUN 33 H Creatinine Glucose 210 H POC Glucose 223 H 166 H Lactic Acid Calcium 8.3 L Magnesium AST Alkaline Phosphatase Total Creatine Kinase CK-MB (CK-2) Troponin T C-Reactive Protein Total Protein Albumin Cholesterol LDL Cholesterol Direct HDL Cholesterol Free T4 Urine WBC (Auto) Urine Creatinine Urine Total Protein Crossmatch 08/24/18 08/25/18 08/25/18 23:47 04:55 04:55 WBC RBC 2.94 L Hgb 8.4 L Hct 25.1 L MCV MCH MCHC RDW 18.2 H Lymph % (Auto) [place] % (Auto) Eos % (Auto) Lymph # [place] # Eos # Seg Neutrophils % Lymphocytes % (Manual) Seg Neutrophils # Lymphocytes # (Manual) PT INR APTT D-Dimer Heparin Anti-Xa Level POC ABG pH POC ABG pCO2 POC ABG pO2 Sodium Potassium Chloride 110.2 H Carbon Dioxide BUN 30 H Creatinine Glucose POC Glucose 126 H Lactic Acid Calcium 8.1 L Magnesium AST Alkaline Phosphatase Total Creatine Kinase CK-MB (CK-2) Troponin T C-Reactive Protein Total Protein Albumin Cholesterol LDL Cholesterol Direct HDL Cholesterol Free T4 Urine WBC (Auto) Urine Creatinine Urine Total Protein Crossmatch 08/25/18 08/26/18 08/26/18 12:40 04:39 04:39 WBC RBC 2.96 L Hgb 8.3 L Hct 25.7 L MCV MCH MCHC RDW 18.2 H Lymph % (Auto) 10.5 L [place] % (Auto) 9.3 H Eos % (Auto) Lymph # 0.8 L [place] # Eos # Seg Neutrophils % 77.0 H Lymphocytes % (Manual) Seg Neutrophils # Lymphocytes # (Manual) PT INR APTT D-Dimer Heparin Anti-Xa Level POC ABG pH POC ABG pCO2 POC ABG pO2 Sodium 147 H Potassium Chloride 113.5 H Carbon Dioxide BUN 27 H Creatinine 0.7 L Glucose 106 H POC Glucose Lactic Acid Calcium 8.0 L Magnesium AST Alkaline Phosphatase Total Creatine Kinase CK-MB (CK-2) Troponin T C-Reactive Protein Total Protein Albumin Cholesterol LDL Cholesterol Direct HDL Cholesterol Free T4 Urine WBC (Auto) > 182.0 H Urine Creatinine Urine Total Protein Crossmatch 08/26/18 08/26/18 08/26/18 05:27 09:00 09:54 WBC RBC Hgb Hct MCV MCH MCHC RDW Lymph % (Auto) [place] % (Auto) Eos % (Auto) Lymph # [place] # Eos # Seg Neutrophils % Lymphocytes % (Manual) Seg Neutrophils # Lymphocytes # (Manual) PT INR APTT D-Dimer Heparin Anti-Xa Level POC ABG pH POC ABG pCO2 POC ABG pO2 Sodium Potassium Chloride Carbon Dioxide BUN Creatinine Glucose POC Glucose 120 H 170 H Lactic Acid Calcium Magnesium AST Alkaline Phosphatase Total Creatine Kinase CK-MB (CK-2) Troponin T C-Reactive Protein Total Protein Albumin Cholesterol LDL Cholesterol Direct HDL Cholesterol Free T4 0.51 L Urine WBC (Auto) Urine Creatinine Urine Total Protein Crossmatch 08/26/18 08/26/18 08/27/18 14:52 17:50 06:30 WBC RBC Hgb Hct MCV MCH MCHC RDW Lymph % (Auto) [place] % (Auto) Eos % (Auto) Lymph # [place] # Eos # Seg Neutrophils % Lymphocytes % (Manual) Seg Neutrophils # Lymphocytes # (Manual) PT INR APTT D-Dimer Heparin Anti-Xa Level POC ABG pH POC ABG pCO2 POC ABG pO2 Sodium 150 H Potassium Chloride 114.8 H Carbon Dioxide BUN 24 H Creatinine 0.7 L Glucose 131 H POC Glucose 166 H 107 H Lactic Acid Calcium 7.8 L Magnesium AST Alkaline Phosphatase Total Creatine Kinase CK-MB (CK-2) Troponin T C-Reactive Protein Total Protein Albumin Cholesterol LDL Cholesterol Direct HDL Cholesterol Free T4 Urine WBC (Auto) Urine Creatinine Urine Total Protein Crossmatch 08/27/18 08/27/18 08/27/18 08:22 14:20 16:06 WBC RBC Hgb Hct MCV MCH MCHC RDW Lymph % (Auto) [place] % (Auto) Eos % (Auto) Lymph # [place] # Eos # Seg Neutrophils % Lymphocytes % (Manual) Seg Neutrophils # Lymphocytes # (Manual) PT INR APTT D-Dimer Heparin Anti-Xa Level POC ABG pH POC ABG pCO2 POC ABG pO2 Sodium Potassium Chloride Carbon Dioxide BUN Creatinine Glucose POC Glucose 112 H 151 H 158 H Lactic Acid Calcium Magnesium AST Alkaline Phosphatase Total Creatine Kinase CK-MB (CK-2) Troponin T C-Reactive Protein Total Protein Albumin Cholesterol LDL Cholesterol Direct HDL Cholesterol Free T4 Urine WBC (Auto) Urine Creatinine Urine Total Protein Crossmatch 08/27/18 08/27/18 08/28/18 20:09 21:25 02:03 WBC RBC Hgb Hct MCV MCH MCHC RDW Lymph % (Auto) [place] % (Auto) Eos % (Auto) Lymph # [place] # Eos # Seg Neutrophils % Lymphocytes % (Manual) Seg Neutrophils # Lymphocytes # (Manual) PT INR APTT D-Dimer Heparin Anti-Xa Level POC ABG pH POC ABG pCO2 POC ABG pO2 130 H Sodium Potassium Chloride Carbon Dioxide BUN Creatinine Glucose POC Glucose 226 H 250 H Lactic Acid Calcium Magnesium AST Alkaline Phosphatase Total Creatine Kinase CK-MB (CK-2) Troponin T C-Reactive Protein Total Protein Albumin Cholesterol LDL Cholesterol Direct HDL Cholesterol Free T4 Urine WBC (Auto) Urine Creatinine Urine Total Protein Crossmatch 08/28/18 08/28/18 08/28/18 05:56 07:15 13:17 WBC RBC Hgb Hct MCV MCH MCHC RDW Lymph % (Auto) [place] % (Auto) Eos % (Auto) Lymph # [place] # Eos # Seg Neutrophils % Lymphocytes % (Manual) Seg Neutrophils # Lymphocytes # (Manual) PT INR APTT D-Dimer Heparin Anti-Xa Level POC ABG pH POC ABG pCO2 POC ABG pO2 Sodium Potassium Chloride Carbon Dioxide BUN Creatinine Glucose 198 H POC Glucose 221 H 188 H Lactic Acid Calcium 7.7 L Magnesium AST Alkaline Phosphatase Total Creatine Kinase CK-MB (CK-2) Troponin T C-Reactive Protein Total Protein Albumin Cholesterol LDL Cholesterol Direct HDL Cholesterol Free T4 Urine WBC (Auto) Urine Creatinine Urine Total Protein Crossmatch 08/28/18 08/28/18 08/28/18 15:53 18:12 22:35 WBC RBC Hgb Hct MCV MCH MCHC RDW Lymph % (Auto) [place] % (Auto) Eos % (Auto) Lymph # [place] # Eos # Seg Neutrophils % Lymphocytes % (Manual) Seg Neutrophils # Lymphocytes # (Manual) PT INR APTT D-Dimer Heparin Anti-Xa Level POC ABG pH 7.457 H POC ABG pCO2 POC ABG pO2 Sodium Potassium Chloride Carbon Dioxide BUN Creatinine Glucose POC Glucose 197 H 225 H Lactic Acid Calcium Magnesium AST Alkaline Phosphatase Total Creatine Kinase CK-MB (CK-2) Troponin T C-Reactive Protein Total Protein Albumin Cholesterol LDL Cholesterol Direct HDL Cholesterol Free T4 Urine WBC (Auto) Urine Creatinine Urine Total Protein Crossmatch 08/29/18 08/29/18 08/29/18 03:04 10:47 14:25 WBC RBC Hgb Hct MCV MCH MCHC RDW Lymph % (Auto) [place] % (Auto) Eos % (Auto) Lymph # [place] # Eos # Seg Neutrophils % Lymphocytes % (Manual) Seg Neutrophils # Lymphocytes # (Manual) PT INR APTT D-Dimer Heparin Anti-Xa Level POC ABG pH POC ABG pCO2 POC ABG pO2 Sodium Potassium Chloride Carbon Dioxide BUN Creatinine Glucose POC Glucose 223 H 371 H 266 H Lactic Acid Calcium Magnesium AST Alkaline Phosphatase Total Creatine Kinase CK-MB (CK-2) Troponin T C-Reactive Protein Total Protein Albumin Cholesterol LDL Cholesterol Direct HDL Cholesterol Free T4 Urine WBC (Auto) Urine Creatinine Urine Total Protein Crossmatch 08/29/18 08/29/18 08/29/18 16:45 17:36 21:33 WBC RBC Hgb Hct MCV MCH MCHC RDW Lymph % (Auto) [place] % (Auto) Eos % (Auto) Lymph # [place] # Eos # Seg Neutrophils % Lymphocytes % (Manual) Seg Neutrophils # Lymphocytes # (Manual) PT INR APTT D-Dimer Heparin Anti-Xa Level POC ABG pH POC ABG pCO2 POC ABG pO2 118 H Sodium Potassium Chloride Carbon Dioxide BUN Creatinine Glucose POC Glucose 253 H 204 H Lactic Acid Calcium Magnesium AST Alkaline Phosphatase Total Creatine Kinase CK-MB (CK-2) Troponin T C-Reactive Protein Total Protein Albumin Cholesterol LDL Cholesterol Direct HDL Cholesterol Free T4 Urine WBC (Auto) Urine Creatinine Urine Total Protein Crossmatch 08/30/18 08/30/18 08/30/18 01:33 05:27 05:40 WBC RBC 3.12 L Hgb 8.5 L Hct 25.9 L MCV 83 L MCH 27 L MCHC RDW 18.3 H Lymph % (Auto) [place] % (Auto) 7.8 H Eos % (Auto) 8.8 H Lymph # [place] # Eos # 0.6 H Seg Neutrophils % Lymphocytes % (Manual) Seg Neutrophils # Lymphocytes # (Manual) PT INR APTT D-Dimer Heparin Anti-Xa Level POC ABG pH POC ABG pCO2 POC ABG pO2 Sodium Potassium Chloride Carbon Dioxide BUN Creatinine Glucose POC Glucose 157 H 178 H Lactic Acid Calcium Magnesium AST Alkaline Phosphatase Total Creatine Kinase CK-MB (CK-2) Troponin T C-Reactive Protein Total Protein Albumin Cholesterol LDL Cholesterol Direct HDL Cholesterol Free T4 Urine WBC (Auto) Urine Creatinine Urine Total Protein Crossmatch 08/30/18 08/30/18 08/30/18 05:40 09:28 11:41 WBC RBC Hgb Hct MCV MCH MCHC RDW Lymph % (Auto) [place] % (Auto) Eos % (Auto) Lymph # [place] # Eos # Seg Neutrophils % Lymphocytes % (Manual) Seg Neutrophils # Lymphocytes # (Manual) PT INR APTT D-Dimer Heparin Anti-Xa Level POC ABG pH POC ABG pCO2 POC ABG pO2 Sodium Potassium Chloride Carbon Dioxide BUN Creatinine 0.7 L Glucose 189 H POC Glucose 216 H 257 H Lactic Acid Calcium 8.2 L Magnesium AST 50 H Alkaline Phosphatase 158 H Total Creatine Kinase CK-MB (CK-2) Troponin T C-Reactive Protein Total Protein Albumin 1.6 L Cholesterol LDL Cholesterol Direct HDL Cholesterol Free T4 Urine WBC (Auto) Urine Creatinine Urine Total Protein Crossmatch 08/30/18 08/30/18 08/30/18 14:34 17:07 21:56 WBC RBC Hgb Hct MCV MCH MCHC RDW Lymph % (Auto) [place] % (Auto) Eos % (Auto) Lymph # [place] # Eos # Seg Neutrophils % Lymphocytes % (Manual) Seg Neutrophils # Lymphocytes # (Manual) PT INR APTT D-Dimer Heparin Anti-Xa Level POC ABG pH POC ABG pCO2 POC ABG pO2 Sodium Potassium Chloride Carbon Dioxide BUN Creatinine Glucose POC Glucose 263 H 263 H 234 H Lactic Acid Calcium Magnesium AST Alkaline Phosphatase Total Creatine Kinase CK-MB (CK-2) Troponin T C-Reactive Protein Total Protein Albumin Cholesterol LDL Cholesterol Direct HDL Cholesterol Free T4 Urine WBC (Auto) Urine Creatinine Urine Total Protein Crossmatch 08/31/18 08/31/18 08/31/18 02:02 05:29 09:24 WBC RBC Hgb Hct MCV MCH MCHC RDW Lymph % (Auto) [place] % (Auto) Eos % (Auto) Lymph # [place] # Eos # Seg Neutrophils % Lymphocytes % (Manual) Seg Neutrophils # Lymphocytes # (Manual) PT INR APTT D-Dimer Heparin Anti-Xa Level POC ABG pH POC ABG pCO2 POC ABG pO2 Sodium Potassium Chloride Carbon Dioxide BUN Creatinine Glucose POC Glucose 151 H 156 H 107 H Lactic Acid Calcium Magnesium AST Alkaline Phosphatase Total Creatine Kinase CK-MB (CK-2) Troponin T C-Reactive Protein Total Protein Albumin Cholesterol LDL Cholesterol Direct HDL Cholesterol Free T4 Urine WBC (Auto) Urine Creatinine Urine Total Protein Crossmatch 08/31/18 08/31/18 08/31/18 13:51 17:28 21:40 WBC RBC Hgb Hct MCV MCH MCHC RDW Lymph % (Auto) [place] % (Auto) Eos % (Auto) Lymph # [place] # Eos # Seg Neutrophils % Lymphocytes % (Manual) Seg Neutrophils # Lymphocytes # (Manual) PT INR APTT D-Dimer Heparin Anti-Xa Level POC ABG pH POC ABG pCO2 POC ABG pO2 Sodium Potassium Chloride Carbon Dioxide BUN Creatinine Glucose POC Glucose 170 H 239 H 209 H Lactic Acid Calcium Magnesium AST Alkaline Phosphatase Total Creatine Kinase CK-MB (CK-2) Troponin T C-Reactive Protein Total Protein Albumin Cholesterol LDL Cholesterol Direct HDL Cholesterol Free T4 Urine WBC (Auto) Urine Creatinine Urine Total Protein Crossmatch 08/31/18 08/31/18 09/01/18 22:25 22:25 01:47 WBC RBC Hgb Hct MCV MCH MCHC RDW Lymph % (Auto) [place] % (Auto) Eos % (Auto) Lymph # [place] # Eos # Seg Neutrophils % Lymphocytes % (Manual) Seg Neutrophils # Lymphocytes # (Manual) PT INR APTT D-Dimer Heparin Anti-Xa Level POC ABG pH POC ABG pCO2 45.6 H POC ABG pO2 135 H Sodium Potassium Chloride Carbon Dioxide BUN Creatinine Glucose POC Glucose 208 H 223 H Lactic Acid Calcium Magnesium AST Alkaline Phosphatase Total Creatine Kinase CK-MB (CK-2) Troponin T C-Reactive Protein Total Protein Albumin Cholesterol LDL Cholesterol Direct HDL Cholesterol Free T4 Urine WBC (Auto) Urine Creatinine Urine Total Protein Crossmatch 09/01/18 09/01/18 09/01/18 05:18 05:19 05:19 WBC RBC 3.08 L Hgb 8.5 L Hct 25.6 L MCV 83 L MCH MCHC RDW 18.7 H Lymph % (Auto) [place] % (Auto) 7.9 H Eos % (Auto) 6.1 H Lymph # [place] # Eos # Seg Neutrophils % Lymphocytes % (Manual) Seg Neutrophils # Lymphocytes # (Manual) PT INR APTT D-Dimer Heparin Anti-Xa Level POC ABG pH POC ABG pCO2 POC ABG pO2 Sodium Potassium Chloride 107.9 H Carbon Dioxide BUN 21 H Creatinine 0.7 L Glucose 188 H POC Glucose 236 H Lactic Acid Calcium Magnesium AST Alkaline Phosphatase Total Creatine Kinase CK-MB (CK-2) Troponin T C-Reactive Protein Total Protein Albumin Cholesterol LDL Cholesterol Direct HDL Cholesterol Free T4 Urine WBC (Auto) Urine Creatinine Urine Total Protein Crossmatch 09/01/18 09/01/18 09/01/18 09:29 14:25 18:20 WBC RBC Hgb Hct MCV MCH MCHC RDW Lymph % (Auto) [place] % (Auto) Eos % (Auto) Lymph # [place] # Eos # Seg Neutrophils % Lymphocytes % (Manual) Seg Neutrophils # Lymphocytes # (Manual) PT INR APTT D-Dimer Heparin Anti-Xa Level POC ABG pH POC ABG pCO2 POC ABG pO2 Sodium Potassium Chloride Carbon Dioxide BUN Creatinine Glucose POC Glucose 231 H 294 H 215 H Lactic Acid Calcium Magnesium AST Alkaline Phosphatase Total Creatine Kinase CK-MB (CK-2) Troponin T C-Reactive Protein Total Protein Albumin Cholesterol LDL Cholesterol Direct HDL Cholesterol Free T4 Urine WBC (Auto) Urine Creatinine Urine Total Protein Crossmatch 09/01/18 09/02/18 09/02/18 21:21 03:28 05:25 WBC RBC Hgb Hct MCV MCH MCHC RDW Lymph % (Auto) [place] % (Auto) Eos % (Auto) Lymph # [place] # Eos # Seg Neutrophils % Lymphocytes % (Manual) Seg Neutrophils # Lymphocytes # (Manual) PT INR APTT D-Dimer Heparin Anti-Xa Level POC ABG pH POC ABG pCO2 POC ABG pO2 Sodium Potassium Chloride Carbon Dioxide BUN Creatinine Glucose POC Glucose 236 H 194 H 183 H Lactic Acid Calcium Magnesium AST Alkaline Phosphatase Total Creatine Kinase CK-MB (CK-2) Troponin T C-Reactive Protein Total Protein Albumin Cholesterol LDL Cholesterol Direct HDL Cholesterol Free T4 Urine WBC (Auto) Urine Creatinine Urine Total Protein Crossmatch 09/02/18 09/02/18 09/02/18 09:16 15:30 17:20 WBC RBC Hgb Hct MCV MCH MCHC RDW Lymph % (Auto) [place] % (Auto) Eos % (Auto) Lymph # [place] # Eos # Seg Neutrophils % Lymphocytes % (Manual) Seg Neutrophils # Lymphocytes # (Manual) PT INR APTT D-Dimer Heparin Anti-Xa Level POC ABG pH POC ABG pCO2 POC ABG pO2 Sodium Potassium Chloride Carbon Dioxide BUN Creatinine Glucose POC Glucose 251 H 303 H 316 H Lactic Acid Calcium Magnesium AST Alkaline Phosphatase Total Creatine Kinase CK-MB (CK-2) Troponin T C-Reactive Protein Total Protein Albumin Cholesterol LDL Cholesterol Direct HDL Cholesterol Free T4 Urine WBC (Auto) Urine Creatinine Urine Total Protein Crossmatch 09/02/18 09/03/18 09/03/18 21:25 03:32 05:20 WBC RBC Hgb Hct MCV MCH MCHC RDW Lymph % (Auto) [place] % (Auto) Eos % (Auto) Lymph # [place] # Eos # Seg Neutrophils % Lymphocytes % (Manual) Seg Neutrophils # Lymphocytes # (Manual) PT INR APTT D-Dimer Heparin Anti-Xa Level POC ABG pH POC ABG pCO2 POC ABG pO2 Sodium Potassium Chloride Carbon Dioxide BUN Creatinine Glucose POC Glucose 242 H 305 H 225 H Lactic Acid Calcium Magnesium AST Alkaline Phosphatase Total Creatine Kinase CK-MB (CK-2) Troponin T C-Reactive Protein Total Protein Albumin Cholesterol LDL Cholesterol Direct HDL Cholesterol Free T4 Urine WBC (Auto) Urine Creatinine Urine Total Protein Crossmatch Chest x-ray: image reviewed Allied health notes reviewed: nursing
--- NOTE | 2018-09-03 08:26 | Progress Note ---
Assessment and Plan Assessment and plan: Patient is a 77 yo man from [facility] with a history of respiratory failure, CVA with tracheostomy and Gtube who presented to [facility] ED following cardiac arrest after being found unresponsive at the [facility]. Time down is unknown per records. The patient is on the vent and unresponsive, all history is obtained from the chart. Patient had multiple episodes of arrest/pulselessness. He has been on the vent since then without any improvement. Per ER notes the patient was bagged via tracheostomy which continued to have low tidal volumes and so the patient with orally intubated after which tidal volumes improved. Initially, he went to [facility] [place] may 05 to june 05, he had fluid on brain and multiple strokes per family and they drained the fluid off the brain. The trach was placed at [facility] [place] and patient went to [facility], x 7 weeks (trach was changed where capped was placed), he was doing well, talking and sitting up. Then he went to [facility], August 03 Then on August 12, Friday, he had cardio-respiratory arrest. The [place] brain flow scan showed reduced blood flow. Patient had evaluation by neurology who reports patient with intact brainstem function. Cardiopulmonary arrest x 3: Supportive care, cardiology and Pulm were follwing. Cardiology now signed off. Acute on chronic respiratory failure Trach has been removed when patient was orally intubated, continue ventilator management per pulmonology. Tracheostomy was replaced by surgery on 08/25/18. Tracheostomy care, airway clearance, secretion management Right pneumothorax, resolved. Status post chest tube, mgt per pulmonology Anoxic encephalopathy: neurology consult appreciated, poor prognosis, poor likelihood of recovery, preserved brain stem function otherwise unresponsive. EEG is suggestive hypoxic encephalopathy. Hypertension. On Hydralazine 75 mg 3 times a day Hypernatremia, Continue free water via G-tube, s/p hypotonic IV solution, monitor bmp closely Acute kidney injury likely due to ATN Nephrology following, continue IV fluid, avoid renal toxic agents NSTEMI: treated with IV heparin, asa, statin, no bblocker due to bradycardia, hypotension, Cardiology was following Severe protein calorie malnutrition: Dietitian consulted, continue tube feedings UTI/sepsis: Continue antibiotics, follow-up urine cultures-->no growth x 48 hours Type 2 dm with persistent hyperglycemia: cont insulins and adjust according, on tube feedings Anemia: s/p transfusion Hypertensive urgency Start norvasc Increase Hydralazine to 100mg tid Hydralazine iv prn Urinary retention: DVT prophylaxis; On Lovenox Disposition. LTAC referral. Poor prognosis The high probability of a clinically significant, sudden or life threatening deterioration of the [neurology and respiratory] system(s) required my full and direct attention, intervention and personal management. The aggregate critical care time was [31] minutes. This time is in addition to time spent performing reported procedures but includes the following: [x] Data Review and interpretation [x] Patient assessment and monitoring of vital signs [x] Documentation History Interval history: Still intubated, on vent still unresponsive Hospitalist Physical - Physical exam Narrative exam: Gen: Not in acute distress, lying in bed, intubated HEENT: Normocephalic, atraumatic Neck: supple, no JVD Heart: S1 and S2 reg, no murmurs, rubs or gallop Lungs: Clear, no crackles, no wheeze Abd: soft, non tender, non distended, normal BS Ext: no edema Neuro:intubated, comatose,unresponsive - Constitutional Vitals: Temp Pulse Resp BP Pulse Ox 97.9 F 69 14 140/80 100 09/03/18 07:46 09/03/18 08:00 09/03/18 08:00 09/03/18 08:00 09/03/18 08:15 General appearance: Present: other (twitching, nonresponsive, intubated) Results - Labs CBC & Chem 7: 09/01/18 05:19 09/01/18 05:19 Labs: Laboratory Last Values WBC 6.2 K/mm3 (4.5-11.0) 09/01/18 05:19 RBC 3.08 M/mm3 (3.65-5.03) L 09/01/18 05:19 Hgb 8.5 gm/dl (11.8-15.2) L 09/01/18 05:19 Hct 25.6 % (35.5-45.6) L 09/01/18 05:19 MCV 83 fl (84-94) L 09/01/18 05:19 MCH 28 pg (28-32) 09/01/18 05:19 MCHC 33 % (32-34) 09/01/18 05:19 RDW 18.7 % (13.2-15.2) H 09/01/18 05:19 Plt Count 259 K/mm3 (140-440) 09/01/18 05:19 Lymph % (Auto) 26.8 % (13.4-35.0) 09/01/18 05:19 Frederick % (Auto) 7.9 % (0.0-7.3) H 09/01/18 05:19 Eos % (Auto) 6.1 % (0.0-4.3) H 09/01/18 05:19 Baso % (Auto) 0.7 % (0.0-1.8) 09/01/18 05:19 Lymph # 1.7 K/mm3 (1.2-5.4) 09/01/18 05:19 Frederick # 0.5 K/mm3 (0.0-0.8) 09/01/18 05:19 Eos # 0.4 K/mm3 (0.0-0.4) 09/01/18 05:19 Baso # 0.0 K/mm3 (0.0-0.1) 09/01/18 05:19 Add Manual Diff Complete 08/12/18 21:44 Total Counted 100 08/12/18 21:44 Seg Neutrophils % 58.5 % (40.0-70.0) 09/01/18 05:19 Seg Neuts % (Manual) 44.0 % (40.0-70.0) 08/12/18 21:44 0 % 08/12/18 21:44 48.0 % (13.4-35.0) H 08/12/18 21:44 Reactive Lymphs % (Man) 0 % 08/12/18 21:44 2.0 % (0.0-7.3) 08/12/18 21:44 1.0 % (0.0-4.3) 08/12/18 21:44 0 % (0.0-1.8) 08/12/18 21:44 1.0 % 08/12/18 21:44 4.0 % 08/12/18 21:44 0 % 08/12/18 21:44 0 % 08/12/18 21:44 Nucleated RBC % Not Reportable 08/12/18 21:44 Seg Neutrophils # 3.6 K/mm3 (1.8-7.7) 09/01/18 05:19 Seg Neutrophils # Man 6.8 K/mm3 (1.8-7.7) 08/12/18 21:44 Band Neutrophils # 0.0 K/mm3 08/12/18 21:44 7.4 K/mm3 (1.2-5.4) H 08/12/18 21:44 Abs React Lymphs (Man) 0.0 K/mm3 08/12/18 21:44 0.3 K/mm3 (0.0-0.8) 08/12/18 21:44 0.2 K/mm3 (0.0-0.4) 08/12/18 21:44 0.0 K/mm3 (0.0-0.1) 08/12/18 21:44 0.2 K/mm3 08/12/18 21:44 0.6 K/mm3 08/12/18 21:44 0.0 K/mm3 08/12/18 21:44 Blast Cells # 0.0 K/mm3 08/12/18 21:44 WBC Morphology Not Reportable 08/12/18 21:44 Hypersegmented Neuts Not Reportable 08/12/18 21:44 Hyposegmented Neuts Not Reportable 08/12/18 21:44 Hypogranular Neuts Not Reportable 08/12/18 21:44 Not Reportable 08/12/18 21:44 Not Reportable 08/12/18 21:44 Not Reportable 08/12/18 21:44 Not Reportable 08/12/18 21:44 Not Reportable 08/12/18 21:44 Not Reportable 08/12/18 21:44 Consistent w auto 08/12/18 21:44 Not Reportable 08/12/18 21:44 Plt Clumps, EDTA Not Reportable 08/12/18 21:44 Not Reportable 08/12/18 21:44 Not Reportable 08/12/18 21:44 Not Reportable 08/12/18 21:44 Plt Morphology Comment Not Reportable 08/12/18 21:44 RBC Morphology Not Reportable 08/12/18 21:44 Dimorphic RBCs Not Reportable 08/12/18 21:44 Not Reportable 08/12/18 21:44 Not Reportable 08/12/18 21:44 Not Reportable 08/12/18 21:44 Few 08/12/18 21:44 Not Reportable 08/12/18 21:44 Not Reportable 08/12/18 21:44 Not Reportable 08/12/18 21:44 Not Reportable 08/12/18 21:44 Not Reportable 08/12/18 21:44 Not Reportable 08/12/18 21:44 Not Reportable 08/12/18 21:44 Few 08/12/18 21:44 Not Reportable 08/12/18 21:44 Not Reportable 08/12/18 21:44 Not Reportable 08/12/18 21:44 Not Reportable 08/12/18 21:44 Not Reportable 08/12/18 21:44 Not Reportable 08/12/18 21:44 Few 08/12/18 21:44 Acanthocytes (Spur) Not Reportable 08/12/18 21:44 Rouleaux Not Reportable 08/12/18 21:44 Not Reportable 08/12/18 21:44 Not Reportable 08/12/18 21:44 Not Reportable 08/12/18 21:44 Not Reportable 08/12/18 21:44 Hem Pathologist Commnt No 08/12/18 21:44 PT 16.5 Sec. (12.2-14.9) H 08/13/18 00:47 INR 1.25 (0.87-1.13) H 08/13/18 00:47 APTT 79.0 Sec. (24.2-36.6) H* 08/15/18 06:35 2742.50 ng/mlDDU (0-234) H 08/13/18 20:07 Heparin Anti-Xa Level 0.26 U.I./ml (0.3-0.7) L 08/16/18 20:01 POC ABG pH 7.389 (7.35-7.45) 08/31/18 22:25 POC ABG pCO2 45.6 (35-45) H 08/31/18 22:25 POC ABG pO2 135 (80-105) H 08/31/18 22:25 POC ABG HCO3 27.5 (22-26 mml/L) 08/31/18 22:25 POC ABG Total CO2 29 (23-27mmol/L) 08/31/18 22:25 POC ABG O2 Sat 99 08/31/18 22:25 POC ABG Base Excess 3 ((-2) - (+3)mmol/L) 08/31/18 22:25 28 % 08/31/18 22:25 Sodium 145 mmol/L (137-145) 09/01/18 05:19 Potassium 3.9 mmol/L (3.6-5.0) 09/01/18 05:19 Chloride 107.9 mmol/L (98-107) H 09/01/18 05:19 Carbon Dioxide 28 mmol/L (22-30) 09/01/18 05:19 13 mmol/L 09/01/18 05:19 BUN 21 mg/dL (9-20) H 09/01/18 05:19 0.7 mg/dL (0.8-1.5) L 09/01/18 05:19 Estimated GFR > 60 ml/min 09/01/18 05:19 30 % 09/01/18 05:19 Glucose 188 mg/dL (75-100) H 09/01/18 05:19 POC Glucose 225 (70-105) H 09/03/18 05:20 Lactic Acid 2.80 mmol/L (0.7-2.0) H* 08/13/18 12:53 Calcium 8.5 mg/dL (8.4-10.2) 09/01/18 05:19 Phosphorus 3.90 mg/dL (2.5-4.5) 08/15/18 04:05 Magnesium 2.20 mg/dL (1.7-2.3) 08/15/18 04:05 < 0.20 mg/dL (0.1-1.2) 08/30/18 05:40 AST 50 units/L (5-40) H 08/30/18 05:40 ALT 31 units/L (7-56) 08/30/18 05:40 158 units/L (35-129) H 08/30/18 05:40 309 units/L (55-170) H 08/13/18 10:10 CK-MB (CK-2) 4.1 ng/mL (0.0-4.0) H 08/13/18 10:10 CK-MB (CK-2) Rel Index 1.3 (0-4) 08/13/18 10:10 0.409 ng/mL (0.00-0.029) H* 08/14/18 04:03 16.90 mg/dL (0.00-1.30) H 08/13/18 12:53 6.4 g/dL (6.3-8.2) 08/30/18 05:40 1.6 g/dL (3.9-5) L 08/30/18 05:40 0.3 % 08/30/18 05:40 Triglycerides 62 mg/dL (2-149) 08/13/18 00:32 Cholesterol 46 mg/dL (50-199) L 08/13/18 00:32 17 mg/dL (50-130) L 08/13/18 00:32 6 mg/dL (40-59) L 08/13/18 00:32 7.66 % 08/13/18 00:32 TSH 0.973 mlU/mL (0.270-4.200) 08/26/18 09:00 Free T4 0.51 ng/dL (0.76-1.46) L 08/26/18 09:00 Yellow (Yellow) 08/25/18 12:40 Turbid (Clear) 08/25/18 12:40 7.0 (5.0-7.0) 08/25/18 12:40 Ur Specific [place] 1.009 (1.003-1.030) 08/25/18 12:40 100 mg/dl mg/dL (Negative) 08/25/18 12:40 Neg mg/dL (Negative) 08/25/18 12:40 Neg mg/dL (Negative) 08/25/18 12:40 Mod (Negative) 08/25/18 12:40 Neg (Negative) 08/25/18 12:40 Neg (Negative) 08/25/18 12:40 < 2.0 mg/dL (<2.0) 08/25/18 12:40 Ur Leukocyte Esterase Lg (Negative) 08/25/18 12:40 > 182.0 /HPF (0.0-6.0) H 08/25/18 12:40 10.0 /HPF (0.0-6.0) 08/25/18 12:40 U Epithel Cells (Auto) 5.0 /HPF (0-13.0) 08/25/18 12:40 2+ /HPF (Negative) 08/13/18 00:50 3+ /HPF 08/25/18 12:40 None seen (None Seen) 08/14/18 17:20 60.9 mg/dL (0.1-20.0) H 08/14/18 17:20 32 mmol/L 08/14/18 17:20 64 mg/dL (5-11.8) H 08/14/18 17:20 Presumptive negative 08/12/18 21:30 Presumptive negative 08/12/18 21:30 Ur Barbiturates Screen Presumptive negative 08/12/18 21:30 Ur Phencyclidine Scrn Presumptive negative 08/12/18 21:30 Ur Amphetamines Screen Presumptive negative 08/12/18 21:30 U Benzodiazepines Scrn Presumptive negative 08/12/18 21:30 Presumptive negative 08/12/18 21:30 U Marijuana (THC) Screen Presumptive negative 08/12/18 21:30 Disclamer 08/12/18 21:30 Blood Type O POSITIVE 08/15/18 15:31 Antibody Screen Negative 08/15/18 15:31 Crossmatch See Detail 08/15/18 15:31 Active Medications - Current Medications Current Medications: Generic Name Dose Route Start Last Admin Trade Name Freq PRN Reason Stop Dose Admin Acetaminophen 650 mg 08/13/18 11:40 08/13/18 16:09 Tylenol PO 650 mg Q6H PRN Administration Fever >101 Amlodipine Besylate 5 mg 09/02/18 10:00 09/02/18 09:20 Norvasc FEEDTUBE 5 mg QDAY LENCHO Administration Lipase/Protease/Amylase 1 each 08/25/18 18:36 Pancreazgenia Alas 10,500 Unit FEEDTUBE PRN PRN For Clogged Feeding Tube Aspirin 325 mg 08/17/18 10:00 09/02/18 09:20 Aspirin PO 325 mg QDAY LENCHO Administration Atorvastatin Calcium 40 mg 08/14/18 22:00 09/02/18 21:24 Lipitor PO 40 mg QHS LENCHO Administration Dextrose 50 ml 08/13/18 01:34 D50w (25gm) Syringe IV PRN PRN Hypoglycemia Enoxaparin Sodium 40 mg 08/17/18 22:00 09/02/18 21:23 Lovenox SUB-Q 40 mg QDAY@2200 LENCHO Administration Famotidine 20 mg 08/19/18 10:00 09/02/18 21:24 Pepcid PO 20 mg BID LENCHO Administration Hydralazine HCl 100 mg 09/02/18 09:00 09/03/18 06:00 Apresoline PO 100 mg Q8HR LENCHO Administration Hydralazine HCl 20 mg 09/02/18 08:16 Apresoline IV Q4HR PRN SBP>160 or DBP>110 Hydrophilic Ointment 1 applic 08/13/18 12:21 Vaseline Lip Therapy TP Q2HR PRN Dry Lips Insulin Glargine 25 units 09/03/18 22:00 Lantus SUB-Q QHS LENCHO Insulin Glargine 10 units 09/03/18 09:00 Lantus SUB-Q 09/03/18 09:01 ONCE ONE Insulin Human Lispro 0 unit 08/26/18 10:00 09/03/18 06:00 Humalog SUB-Q 3 unit Q4HR LENCHO Administration Protocol Levetiracetam 500 mg 08/27/18 22:00 09/02/18 21:23 Keppra PO 500 mg BID LENCHO Administration Modafinil 100 mg 08/27/18 10:00 09/02/18 09:20 Provigil PO 100 mg QAM LENCHO Administration Multi-Ingred Cream/Lotion/Oil/Oint 1 applic 08/13/18 12:21 08/17/18 00:41 Artificial Tears Ophth Oint OU 1 applic Q4HR PRN Administration Dry Eye(s) Ondansetron HCl 4 mg 08/13/18 01:34 Zofran IV Q8H PRN Nausea And Vomiting Simple Syrup 15 ml 08/25/18 18:36 Simple Syrup FEEDTUBE PRN PRN Hypoglycemia Simple Syrup 30 ml 08/25/18 18:36 Simple Syrup FEEDTUBE PRN PRN Hypoglycemia Sodium Bicarbonate 325 mg 08/25/18 18:36 Sodium Bicarbonate FEEDTUBE PRN PRN For Clogged Feeding Tube Sodium Chloride 10 ml 08/13/18 10:00 09/02/18 21:26 Sodium Chloride Flush Syringe 10 Ml IV 10 ml BID LENCHO Administration Sodium Chloride 10 ml 08/13/18 01:34 08/30/18 22:29 Sodium Chloride Flush Syringe 10 Ml IV 10 ml PRN PRN Administration LINE FLUSH Nutrition/Malnutrition Assess - Dietary Evaluation Nutrition/Malnutrition Findings: Nutrition Notes Start: 08/13/18 15:41 Freq: Status: Active Protocol: Document 08/31/18 13:06 LP (Rec: 08/31/18 13:09 LP [id number]) Nutrition Notes Initial or Follow up Reassessment Current Diagnosis Acute Kidney Injury,Diabetes Other Pertinent Diagnosis UTI, Hx CVA, PEG, Sacral PU, Multiple PU, Anoxic brain injury,R pneumothorax Current Diet Vital 1.2 at 60 ml/hr Labs/Tests Na 140 Pertinent Medications Reviewed Height 5 ft 8 in Weight 83.5 kg [place] Body Weight (kg) 70.00 BMI 28.0 Subjective/Other Information Pt TF at 50ml/hr. Percent of energy/protein needs met: 81%/100% Burn Absent Trauma Absent #1 Nutrition Diagnosis Inadequate oral intake Diagnosis Progress(for reassessment Continues documentation) Is patient on ventilator? Yes Is Patient Ambulatory and/or Out of Bed No REE-([facility]-confined to bed) 1841.892 Calculation Used for Recommendations [facility] Additional Notes Protein Needs: 87-145g (1.2-2g /kg) Fluid Needs: 1 ml/kcal Nutrition Intervention Change Diet Order: TF Nutrition Support: Vital 1.2 at 60 ml/hr. Water flush of 250ml q4h for hypernatremia and 100 mls q 4 hrs once resolved. Kcal 1,728 Protein (gm) 108 Fluid (mL) 1,167 Add Supplement/Snack (indicate name/kcal Magen BID /protein ) Provides kCal: 190 Provides Protein (gm) 5 Goal #1 Meet at least 80% of calorie and protein needs via TF Anticipated Discharge Needs: TF Follow-Up By: 09/03/18 Additional Comments Follow for TF tolerance at goal
[2018-09-03 08:30] LABS: Hematocrit 27.3 % (35.5-45.6); Mean Corpuscular HGB Conc 33 % (32-34); Mean Corpuscular Volume 83 fl (84-94); Platelet Count 227 K/mm3 (140-440); Red Blood Count 3.29 M/mm3 (3.65-5.03); Red Cell Distribution Width 18.4 % (13.2-15.2)
[2018-09-03 08:39] LABS: BUN/Creatinine Ratio 29; Blood Urea Nitrogen 23 mg/dL (9-20); Calcium 7.9 mg/dL (8.4-10.2); Hemolysis Index 1
[2018-09-03] MEDS ORDERED: LANTUS SUB-Q ONE (09:00)
[2018-09-03] MEDS: PROVIGIL PO SCH (09:56)
[2018-09-03] MEDS: ASPIRIN PO SCH (09:56)
[2018-09-03] MEDS: PEPCID PO SCH ×2 (09:56→21:50)
[2018-09-03] MEDS: KEPPRA PO SCH ×2 (09:56→21:50)
[2018-09-03] MEDS: NORVASC FEEDTUBE SCH (09:57)
[2018-09-03] MEDS: SODIUM CHLORIDE FLUSH SYRINGE 10 ML IV SCH ×2 (13:51→22:40)
[2018-09-03] MEDS: LANTUS SUB-Q SCH (21:50)
[2018-09-03] MEDS: LOVENOX SUB-Q SCH (22:39)
[2018-09-04] MEDS: HumaLOG SUB-Q SCH ×6 (02:00→23:58)
[2018-09-04] MEDS: APRESOLINE PO SCH ×3 (06:20→23:42)
--- NOTE | 2018-09-04 07:45 | Progress Note ---
Assessment and Plan Acute hypoxemic respiratory failure on chronic on MVS . s/p Tracheostomy Status post cardiac arrest. Seizure disorder with breakthrough seizures. History of diabetes. History of cerebrovascular accident. Oropharyngeal dysphagia. History of seizures. Hypernatremia -Tracheostomy care, airway clearance, secretion management -Continue free water flushes for hypernatremia -Continue all current care as documented below -Adequate gas exchange -Weaning per protocol -Hospice evaluation is also acceptable in this clinical scenario, family are resistant to this. - Continue MVS - Lung protective strategies - VAP bundle addressed - SBTs daily as tolerated -Supportive transfusions, to keep HgB >7g/dL - Continue Keppra for seizures with prn ativan IV for breakthrough - Continue Stress ulcer & VTE prophylaxis - Continue bronchodilators with pulmonary hygiene per RT - Continue to wean supplemental oxygen to keep O2 sats 88-90% - Continue chronic home medications - Replete electrolytes as indicated - Monitor renal indices closely - Avoid nephrotoxic agents, adjust all medications for CrCL - Strict intake and output monitoring - Continue enteral nutrition as tolerated - Continue accuchecks with glycemic control - Target glucose of 140-180 mg/dL - Maintenance of sleep -wake cycle - Mobility as tolerated by hemodynamics - Influenza and pneumonia vaccination per protocol ....discussed with RT/RN ----discussed in ICU-IDT rounds ---Discharge planning PROGNOSIS: GUARDED -POOR CONDITION: POOR CODE STATUS: FULL CODE Subjective Date of service: 09/04/18 Principal diagnosis: Acute hypoxemic resp failure; S/P cardiac arrest; Seizures; DM II; H/O CVA Interval history: Patient is seen today for: Acute hypoxemic respiratory failure on chronic; Status post cardiac arrest; Seizure disorder with breakthrough seizures; History of diabetes; History of cerebrovascular accident; Oropharyngeal dysphagia; History of seizures. Seen and examined at bedside; 24hour events reviewed; nursing and respiratory care staff consulted; no adverse overnight events reported to me; remains on MVS s/p tracheostomy; AMS is persistent; tolerating PSV better but still has apneic episodes that kick him back to full support; No emesis or overt aspiration and no seizure activity. Objective Vital Signs - 12hr 09/03/18 09/03/18 09/03/18 20:00 20:01 20:10 Temperature 98.9 F Pulse Rate 62 60 Pulse Rate [ 67 From Monitor] Pulse Rate [ 67 Left Radial] Pulse Rate [ 67 Right Dorsalis Pedis] Respiratory 11 L Rate Blood Pressure 131/68 131/68 O2 Sat by Pulse 100 98 100 Oximetry 09/03/18 09/03/18 09/03/18 20:30 21:01 21:31 Temperature Pulse Rate 63 69 60 Pulse Rate [ From Monitor] Pulse Rate [ Left Radial] Pulse Rate [ Right Dorsalis Pedis] Respiratory 14 12 13 Rate Blood Pressure 137/71 132/49 136/62 O2 Sat by Pulse 98 100 98 Oximetry 09/03/18 09/03/18 09/03/18 21:44 22:00 22:30 Temperature Pulse Rate 67 61 65 Pulse Rate [ From Monitor] Pulse Rate [ Left Radial] Pulse Rate [ Right Dorsalis Pedis] Respiratory 11 L 14 Rate Blood Pressure 128/60 134/62 O2 Sat by Pulse 100 98 Oximetry 09/03/18 09/03/18 09/03/18 23:01 23:15 23:16 Temperature 98.9 F Pulse Rate 67 59 L Pulse Rate [ From Monitor] Pulse Rate [ Left Radial] Pulse Rate [ Right Dorsalis Pedis] Respiratory 11 L 11 L Rate Blood Pressure 132/57 132/57 O2 Sat by Pulse 96 100 Oximetry 09/03/18 09/03/18 09/04/18 23:19 23:31 00:00 Temperature 97.4 F L Pulse Rate 60 61 Pulse Rate [ 62 From Monitor] Pulse Rate [ 62 Left Radial] Pulse Rate [ 62 Right Dorsalis Pedis] Respiratory 12 15 Rate Blood Pressure 158/79 136/77 O2 Sat by Pulse 100 94 93 Oximetry 09/04/18 09/04/18 09/04/18 00:31 00:35 01:00 Temperature Pulse Rate 59 L 58 L 60 Pulse Rate [ From Monitor] Pulse Rate [ Left Radial] Pulse Rate [ Right Dorsalis Pedis] Respiratory 15 11 L Rate Blood Pressure 163/74 163/74 145/77 O2 Sat by Pulse 95 97 97 Oximetry 09/04/18 09/04/18 09/04/18 01:30 02:00 02:31 Temperature Pulse Rate 60 57 L 57 L Pulse Rate [ From Monitor] Pulse Rate [ Left Radial] Pulse Rate [ Right Dorsalis Pedis] Respiratory 11 L 11 L 13 Rate Blood Pressure 128/68 131/74 148/76 O2 Sat by Pulse 99 100 100 Oximetry 09/04/18 09/04/18 09/04/18 03:00 03:30 03:37 Temperature Pulse Rate 59 L 59 L 58 L Pulse Rate [ From Monitor] Pulse Rate [ Left Radial] Pulse Rate [ Right Dorsalis Pedis] Respiratory 17 13 Rate Blood Pressure 145/76 149/80 149/80 O2 Sat by Pulse 100 100 100 Oximetry 09/04/18 09/04/18 09/04/18 04:00 04:01 04:30 Temperature 98.9 F Pulse Rate 60 64 Pulse Rate [ From Monitor] Pulse Rate [ Left Radial] Pulse Rate [ Right Dorsalis Pedis] Respiratory 15 13 Rate Blood Pressure 139/82 148/90 O2 Sat by Pulse 99 100 Oximetry 09/04/18 09/04/18 09/04/18 05:01 05:31 06:00 Temperature Pulse Rate 58 L 57 L 59 L Pulse Rate [ From Monitor] Pulse Rate [ Left Radial] Pulse Rate [ Right Dorsalis Pedis] Respiratory 13 14 15 Rate Blood Pressure 168/81 159/84 160/85 O2 Sat by Pulse 98 99 99 Oximetry 09/04/18 09/04/18 06:30 07:01 Temperature Pulse Rate 60 59 L Pulse Rate [ From Monitor] Pulse Rate [ Left Radial] Pulse Rate [ Right Dorsalis Pedis] Respiratory 16 14 Rate Blood Pressure 155/83 177/81 O2 Sat by Pulse 99 99 Oximetry Constitutional: no acute distress, other (Elderly looking AAM, normocephalic resting in bed on MVS) Eyes: non-icteric ENT: oropharynx moist Neck: supple, no lymphadenopathy, no JVD, other (s/p tracheostomy) Effort: mildly labored Ascultation: Bilateral: diminished breath sounds, rhonchi Percussion: Bilateral: not dull Cardiovascular: regular rate and rhythm, other (S1,S2) Gastrointestinal: normoactive bowel sounds, soft, non-tender, non-distended Integumentary: normal Extremities: no cyanosis, pulses normal, no ischemia or petechiae, edema (trace ) Neurologic: unable to assess, other (encephalopthic) Psychiatric: other (unable to assess) CBC and BMP: 09/03/18 07:52 09/03/18 07:52 ABG, PT/INR, D-dimer: ABG POC ABG pH 7.389 (7.35-7.45) 08/31/18 22:25 POC ABG pCO2 45.6 (35-45) H 08/31/18 22:25 POC ABG pO2 135 (80-105) H 08/31/18 22:25 POC ABG HCO3 27.5 (22-26 mml/L) 08/31/18 22:25 POC ABG Total CO2 29 (23-27mmol/L) 08/31/18 22:25 POC ABG O2 Sat 99 08/31/18 22:25 PT/INR, D-dimer PT 16.5 Sec. (12.2-14.9) H 08/13/18 00:47 INR 1.25 (0.87-1.13) H 08/13/18 00:47 2742.50 ng/mlDDU (0-234) H 08/13/18 20:07 Abnormal lab findings: Abnormal Labs 08/12/18 08/12/18 08/12/18 21:44 21:44 21:44 WBC 15.5 H RBC 3.12 L Hgb 8.8 L Hct 28.9 L MCV MCH MCHC 31 L RDW 19.5 H Lymph % (Auto) [place] % (Auto) Eos % (Auto) Lymph # [place] # Eos # Seg Neutrophils % Lymphocytes % (Manual) 48.0 H Seg Neutrophils # Lymphocytes # (Manual) 7.4 H PT 17.8 H INR 1.37 H APTT D-Dimer Heparin Anti-Xa Level POC ABG pH POC ABG pCO2 POC ABG pO2 Sodium 159 H Potassium Chloride 118.5 H Carbon Dioxide BUN 34 H Creatinine Glucose 161 H POC Glucose Lactic Acid Calcium Magnesium AST Alkaline Phosphatase Total Creatine Kinase CK-MB (CK-2) Troponin T 0.105 H* C-Reactive Protein Total Protein Albumin Cholesterol LDL Cholesterol Direct HDL Cholesterol Free T4 Urine WBC (Auto) Urine Creatinine Urine Total Protein Crossmatch 08/13/18 08/13/18 08/13/18 00:32 00:47 00:47 WBC RBC Hgb 9.2 L Hct 29.6 L MCV MCH MCHC RDW Lymph % (Auto) [place] % (Auto) Eos % (Auto) Lymph # [place] # Eos # Seg Neutrophils % Lymphocytes % (Manual) Seg Neutrophils # Lymphocytes # (Manual) PT 16.5 H INR 1.25 H APTT 37.3 H D-Dimer Heparin Anti-Xa Level POC ABG pH POC ABG pCO2 POC ABG pO2 Sodium Potassium Chloride Carbon Dioxide BUN Creatinine Glucose POC Glucose Lactic Acid Calcium Magnesium AST Alkaline Phosphatase Total Creatine Kinase 211 H CK-MB (CK-2) 7.7 H Troponin T 0.169 H* D C-Reactive Protein Total Protein Albumin Cholesterol 46 L LDL Cholesterol Direct 17 L HDL Cholesterol 6 L Free T4 Urine WBC (Auto) Urine Creatinine Urine Total Protein Crossmatch 08/13/18 08/13/18 08/13/18 00:50 02:25 05:34 WBC RBC Hgb Hct MCV MCH MCHC RDW Lymph % (Auto) [place] % (Auto) Eos % (Auto) Lymph # [place] # Eos # Seg Neutrophils % Lymphocytes % (Manual) Seg Neutrophils # Lymphocytes # (Manual) PT INR APTT D-Dimer Heparin Anti-Xa Level POC ABG pH 7.503 H POC ABG pCO2 POC ABG pO2 253 H Sodium Potassium Chloride Carbon Dioxide BUN Creatinine Glucose POC Glucose Lactic Acid Calcium Magnesium AST Alkaline Phosphatase Total Creatine Kinase 311 H CK-MB (CK-2) 10.4 H Troponin T 0.283 H* D C-Reactive Protein Total Protein Albumin Cholesterol LDL Cholesterol Direct HDL Cholesterol Free T4 Urine WBC (Auto) > 182.0 H Urine Creatinine Urine Total Protein Crossmatch 08/13/18 08/13/18 08/13/18 06:35 10:10 10:10 WBC RBC Hgb Hct MCV MCH MCHC RDW Lymph % (Auto) [place] % (Auto) Eos % (Auto) Lymph # [place] # Eos # Seg Neutrophils % Lymphocytes % (Manual) Seg Neutrophils # Lymphocytes # (Manual) PT INR APTT D-Dimer Heparin Anti-Xa Level POC ABG pH 7.554 H POC ABG pCO2 33.5 L POC ABG pO2 220 H Sodium 158 H Potassium Chloride 117.1 H Carbon Dioxide BUN 53 H Creatinine 2.0 H Glucose 247 H POC Glucose Lactic Acid Calcium 8.2 L Magnesium AST Alkaline Phosphatase Total Creatine Kinase 309 H CK-MB (CK-2) 4.1 H Troponin T 0.470 H* D C-Reactive Protein Total Protein Albumin Cholesterol LDL Cholesterol Direct HDL Cholesterol Free T4 Urine WBC (Auto) Urine Creatinine Urine Total Protein Crossmatch 08/13/18 08/13/18 08/13/18 12:53 12:53 17:55 WBC RBC Hgb Hct MCV MCH MCHC RDW Lymph % (Auto) [place] % (Auto) Eos % (Auto) Lymph # [place] # Eos # Seg Neutrophils % Lymphocytes % (Manual) Seg Neutrophils # Lymphocytes # (Manual) PT INR APTT D-Dimer Heparin Anti-Xa Level POC ABG pH POC ABG pCO2 POC ABG pO2 Sodium Potassium Chloride Carbon Dioxide BUN Creatinine Glucose POC Glucose 308 H Lactic Acid 2.80 H* Calcium Magnesium 2.50 H AST Alkaline Phosphatase Total Creatine Kinase CK-MB (CK-2) Troponin T C-Reactive Protein 16.90 H Total Protein Albumin Cholesterol LDL Cholesterol Direct HDL Cholesterol Free T4 Urine WBC (Auto) Urine Creatinine Urine Total Protein Crossmatch 08/13/18 08/13/18 08/13/18 20:07 21:16 23:17 WBC RBC Hgb Hct MCV MCH MCHC RDW Lymph % (Auto) [place] % (Auto) Eos % (Auto) Lymph # [place] # Eos # Seg Neutrophils % Lymphocytes % (Manual) Seg Neutrophils # Lymphocytes # (Manual) PT INR APTT D-Dimer 2742.50 H Heparin Anti-Xa Level POC ABG pH 7.483 H POC ABG pCO2 30.8 L POC ABG pO2 150 H Sodium Potassium Chloride Carbon Dioxide BUN Creatinine Glucose POC Glucose 245 H Lactic Acid Calcium Magnesium AST Alkaline Phosphatase Total Creatine Kinase CK-MB (CK-2) Troponin T C-Reactive Protein Total Protein Albumin Cholesterol LDL Cholesterol Direct HDL Cholesterol Free T4 Urine WBC (Auto) Urine Creatinine Urine Total Protein Crossmatch 08/14/18 08/14/18 08/14/18 04:03 04:03 04:56 WBC 18.2 H RBC 2.62 L Hgb 7.3 L Hct 24.5 L MCV MCH MCHC RDW 18.9 H Lymph % (Auto) [place] % (Auto) Eos % (Auto) Lymph # [place] # 1.2 H Eos # Seg Neutrophils % 79.4 H Lymphocytes % (Manual) Seg Neutrophils # 14.5 H Lymphocytes # (Manual) PT INR APTT D-Dimer Heparin Anti-Xa Level POC ABG pH POC ABG pCO2 33.5 L POC ABG pO2 153 H Sodium 152 H Potassium 3.4 L Chloride 113.8 H Carbon Dioxide BUN 72 H Creatinine 2.7 H Glucose 239 H POC Glucose Lactic Acid Calcium 7.6 L Magnesium AST 50 H Alkaline Phosphatase 219 H Total Creatine Kinase CK-MB (CK-2) Troponin T 0.409 H* C-Reactive Protein Total Protein 6.2 L Albumin 1.9 L Cholesterol LDL Cholesterol Direct HDL Cholesterol Free T4 Urine WBC (Auto) Urine Creatinine Urine Total Protein Crossmatch 08/14/18 08/14/18 08/14/18 05:18 13:38 15:35 WBC RBC Hgb Hct MCV MCH MCHC RDW Lymph % (Auto) [place] % (Auto) Eos % (Auto) Lymph # [place] # Eos # Seg Neutrophils % Lymphocytes % (Manual) Seg Neutrophils # Lymphocytes # (Manual) PT INR APTT D-Dimer Heparin Anti-Xa Level POC ABG pH POC ABG pCO2 POC ABG pO2 Sodium 150 H Potassium 3.2 L Chloride 114.5 H Carbon Dioxide BUN 69 H Creatinine 2.3 H Glucose 247 H POC Glucose 242 H 296 H Lactic Acid Calcium 7.2 L Magnesium AST Alkaline Phosphatase Total Creatine Kinase CK-MB (CK-2) Troponin T C-Reactive Protein Total Protein Albumin Cholesterol LDL Cholesterol Direct HDL Cholesterol Free T4 Urine WBC (Auto) Urine Creatinine Urine Total Protein Crossmatch 08/14/18 08/14/18 08/14/18 17:01 17:20 23:47 WBC RBC Hgb Hct MCV MCH MCHC RDW Lymph % (Auto) [place] % (Auto) Eos % (Auto) Lymph # [place] # Eos # Seg Neutrophils % Lymphocytes % (Manual) Seg Neutrophils # Lymphocytes # (Manual) PT INR APTT D-Dimer Heparin Anti-Xa Level POC ABG pH POC ABG pCO2 POC ABG pO2 Sodium Potassium Chloride Carbon Dioxide BUN Creatinine Glucose POC Glucose 261 H 280 H Lactic Acid Calcium Magnesium AST Alkaline Phosphatase Total Creatine Kinase CK-MB (CK-2) Troponin T C-Reactive Protein Total Protein Albumin Cholesterol LDL Cholesterol Direct HDL Cholesterol Free T4 Urine WBC (Auto) Urine Creatinine 60.9 H Urine Total Protein 64 H Crossmatch 08/15/18 08/15/18 08/15/18 04:05 04:05 04:05 WBC RBC Hgb 6.3 L Hct 19.7 L* MCV MCH MCHC RDW Lymph % (Auto) [place] % (Auto) Eos % (Auto) Lymph # [place] # Eos # Seg Neutrophils % Lymphocytes % (Manual) Seg Neutrophils # Lymphocytes # (Manual) PT INR APTT D-Dimer Heparin Anti-Xa Level 0.17 L POC ABG pH POC ABG pCO2 POC ABG pO2 Sodium 146 H Potassium 3.0 L Chloride 110.6 H Carbon Dioxide BUN 64 H Creatinine 2.2 H Glucose 231 H POC Glucose Lactic Acid Calcium 7.1 L Magnesium AST Alkaline Phosphatase Total Creatine Kinase CK-MB (CK-2) Troponin T C-Reactive Protein Total Protein Albumin Cholesterol LDL Cholesterol Direct HDL Cholesterol Free T4 Urine WBC (Auto) Urine Creatinine Urine Total Protein Crossmatch 08/15/18 08/15/18 08/15/18 05:21 05:26 06:35 WBC RBC Hgb Hct MCV MCH MCHC RDW Lymph % (Auto) [place] % (Auto) Eos % (Auto) Lymph # [place] # Eos # Seg Neutrophils % Lymphocytes % (Manual) Seg Neutrophils # Lymphocytes # (Manual) PT INR APTT 79.0 H* D-Dimer Heparin Anti-Xa Level POC ABG pH 7.494 H POC ABG pCO2 POC ABG pO2 155 H Sodium Potassium Chloride Carbon Dioxide BUN Creatinine Glucose POC Glucose 271 H Lactic Acid Calcium Magnesium AST Alkaline Phosphatase Total Creatine Kinase CK-MB (CK-2) Troponin T C-Reactive Protein Total Protein Albumin Cholesterol LDL Cholesterol Direct HDL Cholesterol Free T4 Urine WBC (Auto) Urine Creatinine Urine Total Protein Crossmatch 08/15/18 08/15/18 08/15/18 12:10 15:31 17:27 WBC RBC Hgb Hct MCV MCH MCHC RDW Lymph % (Auto) [place] % (Auto) Eos % (Auto) Lymph # [place] # Eos # Seg Neutrophils % Lymphocytes % (Manual) Seg Neutrophils # Lymphocytes # (Manual) PT INR APTT D-Dimer Heparin Anti-Xa Level POC ABG pH POC ABG pCO2 POC ABG pO2 Sodium Potassium Chloride Carbon Dioxide BUN Creatinine Glucose POC Glucose 301 H 287 H Lactic Acid Calcium Magnesium AST Alkaline Phosphatase Total Creatine Kinase CK-MB (CK-2) Troponin T C-Reactive Protein Total Protein Albumin Cholesterol LDL Cholesterol Direct HDL Cholesterol Free T4 Urine WBC (Auto) Urine Creatinine Urine Total Protein Crossmatch See Detail 08/15/18 08/15/18 08/16/18 21:41 23:45 04:13 WBC RBC Hgb Hct MCV MCH MCHC RDW Lymph % (Auto) [place] % (Auto) Eos % (Auto) Lymph # [place] # Eos # Seg Neutrophils % Lymphocytes % (Manual) Seg Neutrophils # Lymphocytes # (Manual) PT INR APTT D-Dimer Heparin Anti-Xa Level 0.19 L POC ABG pH POC ABG pCO2 32.1 L POC ABG pO2 107 H Sodium Potassium Chloride Carbon Dioxide BUN Creatinine Glucose POC Glucose 163 H Lactic Acid Calcium Magnesium AST Alkaline Phosphatase Total Creatine Kinase CK-MB (CK-2) Troponin T C-Reactive Protein Total Protein Albumin Cholesterol LDL Cholesterol Direct HDL Cholesterol Free T4 Urine WBC (Auto) Urine Creatinine Urine Total Protein Crossmatch 08/16/18 08/16/18 08/16/18 04:50 05:28 11:30 WBC RBC 2.67 L Hgb 8.1 L Hct 23.4 L MCV MCH MCHC 35 H RDW 18.3 H Lymph % (Auto) [place] % (Auto) Eos % (Auto) Lymph # [place] # Eos # Seg Neutrophils % Lymphocytes % (Manual) Seg Neutrophils # Lymphocytes # (Manual) PT INR APTT D-Dimer Heparin Anti-Xa Level 0.19 L POC ABG pH POC ABG pCO2 POC ABG pO2 Sodium Potassium Chloride Carbon Dioxide BUN Creatinine Glucose POC Glucose 141 H Lactic Acid Calcium Magnesium AST Alkaline Phosphatase Total Creatine Kinase CK-MB (CK-2) Troponin T C-Reactive Protein Total Protein Albumin Cholesterol LDL Cholesterol Direct HDL Cholesterol Free T4 Urine WBC (Auto) Urine Creatinine Urine Total Protein Crossmatch 08/16/18 08/16/18 08/16/18 11:30 12:00 12:01 WBC RBC Hgb Hct MCV MCH MCHC RDW Lymph % (Auto) [place] % (Auto) Eos % (Auto) Lymph # [place] # Eos # Seg Neutrophils % Lymphocytes % (Manual) Seg Neutrophils # Lymphocytes # (Manual) PT INR APTT D-Dimer Heparin Anti-Xa Level 0.15 L POC ABG pH POC ABG pCO2 POC ABG pO2 Sodium Potassium Chloride 107.8 H Carbon Dioxide 21 L BUN 47 H Creatinine 1.6 H Glucose 221 H POC Glucose 267 H Lactic Acid Calcium 6.9 L Magnesium AST Alkaline Phosphatase Total Creatine Kinase CK-MB (CK-2) Troponin T C-Reactive Protein Total Protein Albumin Cholesterol LDL Cholesterol Direct HDL Cholesterol Free T4 Urine WBC (Auto) Urine Creatinine Urine Total Protein Crossmatch 08/16/18 08/16/18 08/16/18 17:23 20:01 23:13 WBC RBC Hgb Hct MCV MCH MCHC RDW Lymph % (Auto) [place] % (Auto) Eos % (Auto) Lymph # [place] # Eos # Seg Neutrophils % Lymphocytes % (Manual) Seg Neutrophils # Lymphocytes # (Manual) PT INR APTT D-Dimer Heparin Anti-Xa Level 0.26 L POC ABG pH POC ABG pCO2 POC ABG pO2 Sodium Potassium Chloride Carbon Dioxide BUN Creatinine Glucose POC Glucose 245 H 256 H Lactic Acid Calcium Magnesium AST Alkaline Phosphatase Total Creatine Kinase CK-MB (CK-2) Troponin T C-Reactive Protein Total Protein Albumin Cholesterol LDL Cholesterol Direct HDL Cholesterol Free T4 Urine WBC (Auto) Urine Creatinine Urine Total Protein Crossmatch 08/17/18 08/17/18 08/17/18 04:29 04:55 05:34 WBC RBC Hgb 8.2 L Hct 24.3 L MCV MCH MCHC RDW Lymph % (Auto) [place] % (Auto) Eos % (Auto) Lymph # [place] # Eos # Seg Neutrophils % Lymphocytes % (Manual) Seg Neutrophils # Lymphocytes # (Manual) PT INR APTT D-Dimer Heparin Anti-Xa Level POC ABG pH POC ABG pCO2 32.4 L POC ABG pO2 108 H Sodium Potassium Chloride Carbon Dioxide BUN Creatinine Glucose POC Glucose 268 H Lactic Acid Calcium Magnesium AST Alkaline Phosphatase Total Creatine Kinase CK-MB (CK-2) Troponin T C-Reactive Protein Total Protein Albumin Cholesterol LDL Cholesterol Direct HDL Cholesterol Free T4 Urine WBC (Auto) Urine Creatinine Urine Total Protein Crossmatch 08/17/18 08/17/18 08/17/18 11:54 13:44 17:24 WBC RBC Hgb Hct MCV MCH MCHC RDW Lymph % (Auto) [place] % (Auto) Eos % (Auto) Lymph # [place] # Eos # Seg Neutrophils % Lymphocytes % (Manual) Seg Neutrophils # Lymphocytes # (Manual) PT INR APTT D-Dimer Heparin Anti-Xa Level POC ABG pH POC ABG pCO2 32.7 L POC ABG pO2 142 H Sodium Potassium Chloride Carbon Dioxide BUN Creatinine Glucose POC Glucose 295 H 283 H Lactic Acid Calcium Magnesium AST Alkaline Phosphatase Total Creatine Kinase CK-MB (CK-2) Troponin T C-Reactive Protein Total Protein Albumin Cholesterol LDL Cholesterol Direct HDL Cholesterol Free T4 Urine WBC (Auto) Urine Creatinine Urine Total Protein Crossmatch 08/18/18 08/18/18 08/18/18 00:05 00:59 04:15 WBC RBC Hgb Hct MCV MCH MCHC RDW Lymph % (Auto) [place] % (Auto) Eos % (Auto) Lymph # [place] # Eos # Seg Neutrophils % Lymphocytes % (Manual) Seg Neutrophils # Lymphocytes # (Manual) PT INR APTT D-Dimer Heparin Anti-Xa Level POC ABG pH POC ABG pCO2 POC ABG pO2 115 H Sodium Potassium Chloride Carbon Dioxide BUN Creatinine Glucose POC Glucose 247 H 251 H Lactic Acid Calcium Magnesium AST Alkaline Phosphatase Total Creatine Kinase CK-MB (CK-2) Troponin T C-Reactive Protein Total Protein Albumin Cholesterol LDL Cholesterol Direct HDL Cholesterol Free T4 Urine WBC (Auto) Urine Creatinine Urine Total Protein Crossmatch 08/18/18 08/18/18 08/18/18 05:02 12:20 17:51 WBC RBC Hgb Hct MCV MCH MCHC RDW Lymph % (Auto) [place] % (Auto) Eos % (Auto) Lymph # [place] # Eos # Seg Neutrophils % Lymphocytes % (Manual) Seg Neutrophils # Lymphocytes # (Manual) PT INR APTT D-Dimer Heparin Anti-Xa Level POC ABG pH POC ABG pCO2 POC ABG pO2 Sodium Potassium Chloride Carbon Dioxide BUN Creatinine Glucose POC Glucose 282 H 209 H 261 H Lactic Acid Calcium Magnesium AST Alkaline Phosphatase Total Creatine Kinase CK-MB (CK-2) Troponin T C-Reactive Protein Total Protein Albumin Cholesterol LDL Cholesterol Direct HDL Cholesterol Free T4 Urine WBC (Auto) Urine Creatinine Urine Total Protein Crossmatch 08/18/18 08/19/18 08/19/18 23:30 04:54 05:16 WBC RBC 2.62 L Hgb 7.5 L Hct 23.1 L MCV MCH MCHC RDW 18.1 H Lymph % (Auto) [place] % (Auto) Eos % (Auto) Lymph # [place] # Eos # Seg Neutrophils % Lymphocytes % (Manual) Seg Neutrophils # Lymphocytes # (Manual) PT INR APTT D-Dimer Heparin Anti-Xa Level POC ABG pH POC ABG pCO2 POC ABG pO2 58 L Sodium Potassium Chloride Carbon Dioxide BUN Creatinine Glucose POC Glucose 231 H Lactic Acid Calcium Magnesium AST Alkaline Phosphatase Total Creatine Kinase CK-MB (CK-2) Troponin T C-Reactive Protein Total Protein Albumin Cholesterol LDL Cholesterol Direct HDL Cholesterol Free T4 Urine WBC (Auto) Urine Creatinine Urine Total Protein Crossmatch 08/19/18 08/19/18 08/19/18 05:16 05:40 11:56 WBC RBC Hgb Hct MCV MCH MCHC RDW Lymph % (Auto) [place] % (Auto) Eos % (Auto) Lymph # [place] # Eos # Seg Neutrophils % Lymphocytes % (Manual) Seg Neutrophils # Lymphocytes # (Manual) PT INR APTT D-Dimer Heparin Anti-Xa Level POC ABG pH POC ABG pCO2 POC ABG pO2 Sodium 152 H D Potassium Chloride 118.7 H Carbon Dioxide BUN 38 H Creatinine Glucose 220 H POC Glucose 227 H 213 H Lactic Acid Calcium 8.1 L D Magnesium AST Alkaline Phosphatase Total Creatine Kinase CK-MB (CK-2) Troponin T C-Reactive Protein Total Protein Albumin Cholesterol LDL Cholesterol Direct HDL Cholesterol Free T4 Urine WBC (Auto) Urine Creatinine Urine Total Protein Crossmatch 08/19/18 08/19/18 08/20/18 18:37 23:32 04:38 WBC RBC Hgb Hct MCV MCH MCHC RDW Lymph % (Auto) [place] % (Auto) Eos % (Auto) Lymph # [place] # Eos # Seg Neutrophils % Lymphocytes % (Manual) Seg Neutrophils # Lymphocytes # (Manual) PT INR APTT D-Dimer Heparin Anti-Xa Level POC ABG pH POC ABG pCO2 POC ABG pO2 140 H Sodium Potassium Chloride Carbon Dioxide BUN Creatinine Glucose POC Glucose 227 H 245 H Lactic Acid Calcium Magnesium AST Alkaline Phosphatase Total Creatine Kinase CK-MB (CK-2) Troponin T C-Reactive Protein Total Protein Albumin Cholesterol LDL Cholesterol Direct HDL Cholesterol Free T4 Urine WBC (Auto) Urine Creatinine Urine Total Protein Crossmatch 08/20/18 08/20/18 08/20/18 05:31 05:37 05:37 WBC RBC 2.60 L Hgb 7.5 L Hct 22.9 L MCV MCH MCHC RDW 18.4 H Lymph % (Auto) [place] % (Auto) Eos % (Auto) Lymph # [place] # Eos # Seg Neutrophils % Lymphocytes % (Manual) Seg Neutrophils # Lymphocytes # (Manual) PT INR APTT D-Dimer Heparin Anti-Xa Level POC ABG pH POC ABG pCO2 POC ABG pO2 Sodium 150 H Potassium Chloride 115.6 H Carbon Dioxide BUN 38 H Creatinine Glucose 276 H POC Glucose 266 H Lactic Acid Calcium 7.9 L Magnesium AST Alkaline Phosphatase Total Creatine Kinase CK-MB (CK-2) Troponin T C-Reactive Protein Total Protein Albumin Cholesterol LDL Cholesterol Direct HDL Cholesterol Free T4 Urine WBC (Auto) Urine Creatinine Urine Total Protein Crossmatch 08/20/18 08/20/18 08/20/18 14:01 18:20 23:11 WBC RBC Hgb Hct MCV MCH MCHC RDW Lymph % (Auto) [place] % (Auto) Eos % (Auto) Lymph # [place] # Eos # Seg Neutrophils % Lymphocytes % (Manual) Seg Neutrophils # Lymphocytes # (Manual) PT INR APTT D-Dimer Heparin Anti-Xa Level POC ABG pH POC ABG pCO2 POC ABG pO2 Sodium Potassium Chloride Carbon Dioxide BUN Creatinine Glucose POC Glucose 305 H 271 H 218 H Lactic Acid Calcium Magnesium AST Alkaline Phosphatase Total Creatine Kinase CK-MB (CK-2) Troponin T C-Reactive Protein Total Protein Albumin Cholesterol LDL Cholesterol Direct HDL Cholesterol Free T4 Urine WBC (Auto) Urine Creatinine Urine Total Protein Crossmatch 08/21/18 08/21/18 08/21/18 04:41 04:41 06:20 WBC RBC 2.65 L Hgb 7.6 L Hct 23.3 L MCV MCH MCHC RDW 19.1 H Lymph % (Auto) [place] % (Auto) Eos % (Auto) Lymph # [place] # Eos # Seg Neutrophils % Lymphocytes % (Manual) Seg Neutrophils # Lymphocytes # (Manual) PT INR APTT D-Dimer Heparin Anti-Xa Level POC ABG pH POC ABG pCO2 POC ABG pO2 Sodium 150 H Potassium Chloride 117.8 H Carbon Dioxide BUN 37 H Creatinine Glucose 233 H POC Glucose 262 H Lactic Acid Calcium 7.9 L Magnesium AST Alkaline Phosphatase Total Creatine Kinase CK-MB (CK-2) Troponin T C-Reactive Protein Total Protein Albumin Cholesterol LDL Cholesterol Direct HDL Cholesterol Free T4 Urine WBC (Auto) Urine Creatinine Urine Total Protein Crossmatch 08/21/18 08/21/18 08/21/18 10:18 12:04 12:36 WBC RBC Hgb Hct MCV MCH MCHC RDW Lymph % (Auto) [place] % (Auto) Eos % (Auto) Lymph # [place] # Eos # Seg Neutrophils % Lymphocytes % (Manual) Seg Neutrophils # Lymphocytes # (Manual) PT INR APTT D-Dimer Heparin Anti-Xa Level POC ABG pH POC ABG pCO2 POC ABG pO2 Sodium Potassium Chloride Carbon Dioxide BUN Creatinine Glucose POC Glucose 256 H 245 H 255 H Lactic Acid Calcium Magnesium AST Alkaline Phosphatase Total Creatine Kinase CK-MB (CK-2) Troponin T C-Reactive Protein Total Protein Albumin Cholesterol LDL Cholesterol Direct HDL Cholesterol Free T4 Urine WBC (Auto) Urine Creatinine Urine Total Protein Crossmatch 08/21/18 08/21/18 08/22/18 17:36 23:29 05:01 WBC RBC Hgb Hct MCV MCH MCHC RDW Lymph % (Auto) [place] % (Auto) Eos % (Auto) Lymph # [place] # Eos # Seg Neutrophils % Lymphocytes % (Manual) Seg Neutrophils # Lymphocytes # (Manual) PT INR APTT D-Dimer Heparin Anti-Xa Level POC ABG pH 7.466 H POC ABG pCO2 33.8 L POC ABG pO2 111 H Sodium Potassium Chloride Carbon Dioxide BUN Creatinine Glucose POC Glucose 263 H 268 H Lactic Acid Calcium Magnesium AST Alkaline Phosphatase Total Creatine Kinase CK-MB (CK-2) Troponin T C-Reactive Protein Total Protein Albumin Cholesterol LDL Cholesterol Direct HDL Cholesterol Free T4 Urine WBC (Auto) Urine Creatinine Urine Total Protein Crossmatch 08/22/18 08/22/18 08/22/18 05:05 12:05 12:15 WBC RBC Hgb Hct MCV MCH MCHC RDW Lymph % (Auto) [place] % (Auto) Eos % (Auto) Lymph # [place] # Eos # Seg Neutrophils % Lymphocytes % (Manual) Seg Neutrophils # Lymphocytes # (Manual) PT INR APTT D-Dimer Heparin Anti-Xa Level POC ABG pH POC ABG pCO2 POC ABG pO2 Sodium 147 H Potassium Chloride 113.2 H Carbon Dioxide BUN 36 H Creatinine Glucose 249 H POC Glucose 256 H 228 H Lactic Acid Calcium 8.2 L Magnesium AST Alkaline Phosphatase Total Creatine Kinase CK-MB (CK-2) Troponin T C-Reactive Protein Total Protein Albumin Cholesterol LDL Cholesterol Direct HDL Cholesterol Free T4 Urine WBC (Auto) Urine Creatinine Urine Total Protein Crossmatch 08/22/18 08/23/18 08/23/18 17:30 00:03 05:05 WBC RBC Hgb Hct MCV MCH MCHC RDW Lymph % (Auto) [place] % (Auto) Eos % (Auto) Lymph # [place] # Eos # Seg Neutrophils % Lymphocytes % (Manual) Seg Neutrophils # Lymphocytes # (Manual) PT INR APTT D-Dimer Heparin Anti-Xa Level POC ABG pH POC ABG pCO2 POC ABG pO2 Sodium Potassium Chloride Carbon Dioxide BUN Creatinine Glucose POC Glucose 291 H 259 H 247 H Lactic Acid Calcium Magnesium AST Alkaline Phosphatase Total Creatine Kinase CK-MB (CK-2) Troponin T C-Reactive Protein Total Protein Albumin Cholesterol LDL Cholesterol Direct HDL Cholesterol Free T4 Urine WBC (Auto) Urine Creatinine Urine Total Protein Crossmatch 08/23/18 08/23/18 08/23/18 05:14 12:29 17:21 WBC RBC Hgb Hct MCV MCH MCHC RDW Lymph % (Auto) [place] % (Auto) Eos % (Auto) Lymph # [place] # Eos # Seg Neutrophils % Lymphocytes % (Manual) Seg Neutrophils # Lymphocytes # (Manual) PT INR APTT D-Dimer Heparin Anti-Xa Level POC ABG pH POC ABG pCO2 POC ABG pO2 Sodium Potassium Chloride Carbon Dioxide BUN Creatinine Glucose POC Glucose 208 H 138 H 175 H Lactic Acid Calcium Magnesium AST Alkaline Phosphatase Total Creatine Kinase CK-MB (CK-2) Troponin T C-Reactive Protein Total Protein Albumin Cholesterol LDL Cholesterol Direct HDL Cholesterol Free T4 Urine WBC (Auto) Urine Creatinine Urine Total Protein Crossmatch 08/23/18 08/24/18 08/24/18 23:36 01:00 05:50 WBC RBC 2.92 L 2.90 L Hgb 8.3 L 8.2 L Hct 25.4 L 25.2 L MCV MCH MCHC RDW 18.9 H 18.6 H Lymph % (Auto) [place] % (Auto) 9.2 H Eos % (Auto) Lymph # [place] # Eos # Seg Neutrophils % Lymphocytes % (Manual) Seg Neutrophils # Lymphocytes # (Manual) PT INR APTT D-Dimer Heparin Anti-Xa Level POC ABG pH POC ABG pCO2 POC ABG pO2 Sodium Potassium Chloride Carbon Dioxide BUN Creatinine Glucose POC Glucose 163 H Lactic Acid Calcium Magnesium AST Alkaline Phosphatase Total Creatine Kinase CK-MB (CK-2) Troponin T C-Reactive Protein Total Protein Albumin Cholesterol LDL Cholesterol Direct HDL Cholesterol Free T4 Urine WBC (Auto) Urine Creatinine Urine Total Protein Crossmatch 08/24/18 08/24/18 08/24/18 05:50 12:26 18:37 WBC RBC Hgb Hct MCV MCH MCHC RDW Lymph % (Auto) [place] % (Auto) Eos % (Auto) Lymph # [place] # Eos # Seg Neutrophils % Lymphocytes % (Manual) Seg Neutrophils # Lymphocytes # (Manual) PT INR APTT D-Dimer Heparin Anti-Xa Level POC ABG pH POC ABG pCO2 POC ABG pO2 Sodium 147 H Potassium Chloride 113.6 H Carbon Dioxide BUN 33 H Creatinine Glucose 210 H POC Glucose 223 H 166 H Lactic Acid Calcium 8.3 L Magnesium AST Alkaline Phosphatase Total Creatine Kinase CK-MB (CK-2) Troponin T C-Reactive Protein Total Protein Albumin Cholesterol LDL Cholesterol Direct HDL Cholesterol Free T4 Urine WBC (Auto) Urine Creatinine Urine Total Protein Crossmatch 08/24/18 08/25/18 08/25/18 23:47 04:55 04:55 WBC RBC 2.94 L Hgb 8.4 L Hct 25.1 L MCV MCH MCHC RDW 18.2 H Lymph % (Auto) [place] % (Auto) Eos % (Auto) Lymph # [place] # Eos # Seg Neutrophils % Lymphocytes % (Manual) Seg Neutrophils # Lymphocytes # (Manual) PT INR APTT D-Dimer Heparin Anti-Xa Level POC ABG pH POC ABG pCO2 POC ABG pO2 Sodium Potassium Chloride 110.2 H Carbon Dioxide BUN 30 H Creatinine Glucose POC Glucose 126 H Lactic Acid Calcium 8.1 L Magnesium AST Alkaline Phosphatase Total Creatine Kinase CK-MB (CK-2) Troponin T C-Reactive Protein Total Protein Albumin Cholesterol LDL Cholesterol Direct HDL Cholesterol Free T4 Urine WBC (Auto) Urine Creatinine Urine Total Protein Crossmatch 08/25/18 08/26/18 08/26/18 12:40 04:39 04:39 WBC RBC 2.96 L Hgb 8.3 L Hct 25.7 L MCV MCH MCHC RDW 18.2 H Lymph % (Auto) 10.5 L [place] % (Auto) 9.3 H Eos % (Auto) Lymph # 0.8 L [place] # Eos # Seg Neutrophils % 77.0 H Lymphocytes % (Manual) Seg Neutrophils # Lymphocytes # (Manual) PT INR APTT D-Dimer Heparin Anti-Xa Level POC ABG pH POC ABG pCO2 POC ABG pO2 Sodium 147 H Potassium Chloride 113.5 H Carbon Dioxide BUN 27 H Creatinine 0.7 L Glucose 106 H POC Glucose Lactic Acid Calcium 8.0 L Magnesium AST Alkaline Phosphatase Total Creatine Kinase CK-MB (CK-2) Troponin T C-Reactive Protein Total Protein Albumin Cholesterol LDL Cholesterol Direct HDL Cholesterol Free T4 Urine WBC (Auto) > 182.0 H Urine Creatinine Urine Total Protein Crossmatch 08/26/18 08/26/18 08/26/18 05:27 09:00 09:54 WBC RBC Hgb Hct MCV MCH MCHC RDW Lymph % (Auto) [place] % (Auto) Eos % (Auto) Lymph # [place] # Eos # Seg Neutrophils % Lymphocytes % (Manual) Seg Neutrophils # Lymphocytes # (Manual) PT INR APTT D-Dimer Heparin Anti-Xa Level POC ABG pH POC ABG pCO2 POC ABG pO2 Sodium Potassium Chloride Carbon Dioxide BUN Creatinine Glucose POC Glucose 120 H 170 H Lactic Acid Calcium Magnesium AST Alkaline Phosphatase Total Creatine Kinase CK-MB (CK-2) Troponin T C-Reactive Protein Total Protein Albumin Cholesterol LDL Cholesterol Direct HDL Cholesterol Free T4 0.51 L Urine WBC (Auto) Urine Creatinine Urine Total Protein Crossmatch 08/26/18 08/26/18 08/27/18 14:52 17:50 06:30 WBC RBC Hgb Hct MCV MCH MCHC RDW Lymph % (Auto) [place] % (Auto) Eos % (Auto) Lymph # [place] # Eos # Seg Neutrophils % Lymphocytes % (Manual) Seg Neutrophils # Lymphocytes # (Manual) PT INR APTT D-Dimer Heparin Anti-Xa Level POC ABG pH POC ABG pCO2 POC ABG pO2 Sodium 150 H Potassium Chloride 114.8 H Carbon Dioxide BUN 24 H Creatinine 0.7 L Glucose 131 H POC Glucose 166 H 107 H Lactic Acid Calcium 7.8 L Magnesium AST Alkaline Phosphatase Total Creatine Kinase CK-MB (CK-2) Troponin T C-Reactive Protein Total Protein Albumin Cholesterol LDL Cholesterol Direct HDL Cholesterol Free T4 Urine WBC (Auto) Urine Creatinine Urine Total Protein Crossmatch 08/27/18 08/27/18 08/27/18 08:22 14:20 16:06 WBC RBC Hgb Hct MCV MCH MCHC RDW Lymph % (Auto) [place] % (Auto) Eos % (Auto) Lymph # [place] # Eos # Seg Neutrophils % Lymphocytes % (Manual) Seg Neutrophils # Lymphocytes # (Manual) PT INR APTT D-Dimer Heparin Anti-Xa Level POC ABG pH POC ABG pCO2 POC ABG pO2 Sodium Potassium Chloride Carbon Dioxide BUN Creatinine Glucose POC Glucose 112 H 151 H 158 H Lactic Acid Calcium Magnesium AST Alkaline Phosphatase Total Creatine Kinase CK-MB (CK-2) Troponin T C-Reactive Protein Total Protein Albumin Cholesterol LDL Cholesterol Direct HDL Cholesterol Free T4 Urine WBC (Auto) Urine Creatinine Urine Total Protein Crossmatch 08/27/18 08/27/18 08/28/18 20:09 21:25 02:03 WBC RBC Hgb Hct MCV MCH MCHC RDW Lymph % (Auto) [place] % (Auto) Eos % (Auto) Lymph # [place] # Eos # Seg Neutrophils % Lymphocytes % (Manual) Seg Neutrophils # Lymphocytes # (Manual) PT INR APTT D-Dimer Heparin Anti-Xa Level POC ABG pH POC ABG pCO2 POC ABG pO2 130 H Sodium Potassium Chloride Carbon Dioxide BUN Creatinine Glucose POC Glucose 226 H 250 H Lactic Acid Calcium Magnesium AST Alkaline Phosphatase Total Creatine Kinase CK-MB (CK-2) Troponin T C-Reactive Protein Total Protein Albumin Cholesterol LDL Cholesterol Direct HDL Cholesterol Free T4 Urine WBC (Auto) Urine Creatinine Urine Total Protein Crossmatch 0508/28/18 08/28/18 05:56 07:15 13:17 WBC RBC Hgb Hct MCV MCH MCHC RDW Lymph % (Auto) [place] % (Auto) Eos % (Auto) Lymph # [place] # Eos # Seg Neutrophils % Lymphocytes % (Manual) Seg Neutrophils # Lymphocytes # (Manual) PT INR APTT D-Dimer Heparin Anti-Xa Level POC ABG pH POC ABG pCO2 POC ABG pO2 Sodium Potassium Chloride Carbon Dioxide BUN Creatinine Glucose 198 H POC Glucose 221 H 188 H Lactic Acid Calcium 7.7 L Magnesium AST Alkaline Phosphatase Total Creatine Kinase CK-MB (CK-2) Troponin T C-Reactive Protein Total Protein Albumin Cholesterol LDL Cholesterol Direct HDL Cholesterol Free T4 Urine WBC (Auto) Urine Creatinine Urine Total Protein Crossmatch 08/28/18 08/28/18 08/28/18 15:53 18:12 22:35 WBC RBC Hgb Hct MCV MCH MCHC RDW Lymph % (Auto) [place] % (Auto) Eos % (Auto) Lymph # [place] # Eos # Seg Neutrophils % Lymphocytes % (Manual) Seg Neutrophils # Lymphocytes # (Manual) PT INR APTT D-Dimer Heparin Anti-Xa Level POC ABG pH 7.457 H POC ABG pCO2 POC ABG pO2 Sodium Potassium Chloride Carbon Dioxide BUN Creatinine Glucose POC Glucose 197 H 225 H Lactic Acid Calcium Magnesium AST Alkaline Phosphatase Total Creatine Kinase CK-MB (CK-2) Troponin T C-Reactive Protein Total Protein Albumin Cholesterol LDL Cholesterol Direct HDL Cholesterol Free T4 Urine WBC (Auto) Urine Creatinine Urine Total Protein Crossmatch 08/29/18 08/29/18 08/29/18 03:04 10:47 14:25 WBC RBC Hgb Hct MCV MCH MCHC RDW Lymph % (Auto) [place] % (Auto) Eos % (Auto) Lymph # [place] # Eos # Seg Neutrophils % Lymphocytes % (Manual) Seg Neutrophils # Lymphocytes # (Manual) PT INR APTT D-Dimer Heparin Anti-Xa Level POC ABG pH POC ABG pCO2 POC ABG pO2 Sodium Potassium Chloride Carbon Dioxide BUN Creatinine Glucose POC Glucose 223 H 371 H 266 H Lactic Acid Calcium Magnesium AST Alkaline Phosphatase Total Creatine Kinase CK-MB (CK-2) Troponin T C-Reactive Protein Total Protein Albumin Cholesterol LDL Cholesterol Direct HDL Cholesterol Free T4 Urine WBC (Auto) Urine Creatinine Urine Total Protein Crossmatch 08/29/18 08/29/18 08/29/18 16:45 17:36 21:33 WBC RBC Hgb Hct MCV MCH MCHC RDW Lymph % (Auto) [place] % (Auto) Eos % (Auto) Lymph # [place] # Eos # Seg Neutrophils % Lymphocytes % (Manual) Seg Neutrophils # Lymphocytes # (Manual) PT INR APTT D-Dimer Heparin Anti-Xa Level POC ABG pH POC ABG pCO2 POC ABG pO2 118 H Sodium Potassium Chloride Carbon Dioxide BUN Creatinine Glucose POC Glucose 253 H 204 H Lactic Acid Calcium Magnesium AST Alkaline Phosphatase Total Creatine Kinase CK-MB (CK-2) Troponin T C-Reactive Protein Total Protein Albumin Cholesterol LDL Cholesterol Direct HDL Cholesterol Free T4 Urine WBC (Auto) Urine Creatinine Urine Total Protein Crossmatch 08/30/18 08/30/18 08/30/18 01:33 05:27 05:40 WBC RBC 3.12 L Hgb 8.5 L Hct 25.9 L MCV 83 L MCH 27 L MCHC RDW 18.3 H Lymph % (Auto) [place] % (Auto) 7.8 H Eos % (Auto) 8.8 H Lymph # [place] # Eos # 0.6 H Seg Neutrophils % Lymphocytes % (Manual) Seg Neutrophils # Lymphocytes # (Manual) PT INR APTT D-Dimer Heparin Anti-Xa Level POC ABG pH POC ABG pCO2 POC ABG pO2 Sodium Potassium Chloride Carbon Dioxide BUN Creatinine Glucose POC Glucose 157 H 178 H Lactic Acid Calcium Magnesium AST Alkaline Phosphatase Total Creatine Kinase CK-MB (CK-2) Troponin T C-Reactive Protein Total Protein Albumin Cholesterol LDL Cholesterol Direct HDL Cholesterol Free T4 Urine WBC (Auto) Urine Creatinine Urine Total Protein Crossmatch 08/30/18 08/30/18 08/30/18 05:40 09:28 11:41 WBC RBC Hgb Hct MCV MCH MCHC RDW Lymph % (Auto) [place] % (Auto) Eos % (Auto) Lymph # [place] # Eos # Seg Neutrophils % Lymphocytes % (Manual) Seg Neutrophils # Lymphocytes # (Manual) PT INR APTT D-Dimer Heparin Anti-Xa Level POC ABG pH POC ABG pCO2 POC ABG pO2 Sodium Potassium Chloride Carbon Dioxide BUN Creatinine 0.7 L Glucose 189 H POC Glucose 216 H 257 H Lactic Acid Calcium 8.2 L Magnesium AST 50 H Alkaline Phosphatase 158 H Total Creatine Kinase CK-MB (CK-2) Troponin T C-Reactive Protein Total Protein Albumin 1.6 L Cholesterol LDL Cholesterol Direct HDL Cholesterol Free T4 Urine WBC (Auto) Urine Creatinine Urine Total Protein Crossmatch 08/30/18 08/30/18 08/30/18 14:34 17:07 21:56 WBC RBC Hgb Hct MCV MCH MCHC RDW Lymph % (Auto) [place] % (Auto) Eos % (Auto) Lymph # [place] # Eos # Seg Neutrophils % Lymphocytes % (Manual) Seg Neutrophils # Lymphocytes # (Manual) PT INR APTT D-Dimer Heparin Anti-Xa Level POC ABG pH POC ABG pCO2 POC ABG pO2 Sodium Potassium Chloride Carbon Dioxide BUN Creatinine Glucose POC Glucose 263 H 263 H 234 H Lactic Acid Calcium Magnesium AST Alkaline Phosphatase Total Creatine Kinase CK-MB (CK-2) Troponin T C-Reactive Protein Total Protein Albumin Cholesterol LDL Cholesterol Direct HDL Cholesterol Free T4 Urine WBC (Auto) Urine Creatinine Urine Total Protein Crossmatch 08/31/18 08/31/18 08/31/18 02:02 05:29 09:24 WBC RBC Hgb Hct MCV MCH MCHC RDW Lymph % (Auto) [place] % (Auto) Eos % (Auto) Lymph # [place] # Eos # Seg Neutrophils % Lymphocytes % (Manual) Seg Neutrophils # Lymphocytes # (Manual) PT INR APTT D-Dimer Heparin Anti-Xa Level POC ABG pH POC ABG pCO2 POC ABG pO2 Sodium Potassium Chloride Carbon Dioxide BUN Creatinine Glucose POC Glucose 151 H 156 H 107 H Lactic Acid Calcium Magnesium AST Alkaline Phosphatase Total Creatine Kinase CK-MB (CK-2) Troponin T C-Reactive Protein Total Protein Albumin Cholesterol LDL Cholesterol Direct HDL Cholesterol Free T4 Urine WBC (Auto) Urine Creatinine Urine Total Protein Crossmatch 08/31/18 08/31/18 08/31/18 13:51 17:28 21:40 WBC RBC Hgb Hct MCV MCH MCHC RDW Lymph % (Auto) [place] % (Auto) Eos % (Auto) Lymph # [place] # Eos # Seg Neutrophils % Lymphocytes % (Manual) Seg Neutrophils # Lymphocytes # (Manual) PT INR APTT D-Dimer Heparin Anti-Xa Level POC ABG pH POC ABG pCO2 POC ABG pO2 Sodium Potassium Chloride Carbon Dioxide BUN Creatinine Glucose POC Glucose 170 H 239 H 209 H Lactic Acid Calcium Magnesium AST Alkaline Phosphatase Total Creatine Kinase CK-MB (CK-2) Troponin T C-Reactive Protein Total Protein Albumin Cholesterol LDL Cholesterol Direct HDL Cholesterol Free T4 Urine WBC (Auto) Urine Creatinine Urine Total Protein Crossmatch 08/31/18 08/31/18 09/01/18 22:25 22:25 01:47 WBC RBC Hgb Hct MCV MCH MCHC RDW Lymph % (Auto) [place] % (Auto) Eos % (Auto) Lymph # [place] # Eos # Seg Neutrophils % Lymphocytes % (Manual) Seg Neutrophils # Lymphocytes # (Manual) PT INR APTT D-Dimer Heparin Anti-Xa Level POC ABG pH POC ABG pCO2 45.6 H POC ABG pO2 135 H Sodium Potassium Chloride Carbon Dioxide BUN Creatinine Glucose POC Glucose 208 H 223 H Lactic Acid Calcium Magnesium AST Alkaline Phosphatase Total Creatine Kinase CK-MB (CK-2) Troponin T C-Reactive Protein Total Protein Albumin Cholesterol LDL Cholesterol Direct HDL Cholesterol Free T4 Urine WBC (Auto) Urine Creatinine Urine Total Protein Crossmatch 09/01/18 09/01/18 09/01/18 05:18 05:19 05:19 WBC RBC 3.08 L Hgb 8.5 L Hct 25.6 L MCV 83 L MCH MCHC RDW 18.7 H Lymph % (Auto) [place] % (Auto) 7.9 H Eos % (Auto) 6.1 H Lymph # [place] # Eos # Seg Neutrophils % Lymphocytes % (Manual) Seg Neutrophils # Lymphocytes # (Manual) PT INR APTT D-Dimer Heparin Anti-Xa Level POC ABG pH POC ABG pCO2 POC ABG pO2 Sodium Potassium Chloride 107.9 H Carbon Dioxide BUN 21 H Creatinine 0.7 L Glucose 188 H POC Glucose 236 H Lactic Acid Calcium Magnesium AST Alkaline Phosphatase Total Creatine Kinase CK-MB (CK-2) Troponin T C-Reactive Protein Total Protein Albumin Cholesterol LDL Cholesterol Direct HDL Cholesterol Free T4 Urine WBC (Auto) Urine Creatinine Urine Total Protein Crossmatch 09/01/18 09/01/18 09/01/18 09:29 14:25 18:20 WBC RBC Hgb Hct MCV MCH MCHC RDW Lymph % (Auto) [place] % (Auto) Eos % (Auto) Lymph # [place] # Eos # Seg Neutrophils % Lymphocytes % (Manual) Seg Neutrophils # Lymphocytes # (Manual) PT INR APTT D-Dimer Heparin Anti-Xa Level POC ABG pH POC ABG pCO2 POC ABG pO2 Sodium Potassium Chloride Carbon Dioxide BUN Creatinine Glucose POC Glucose 231 H 294 H 215 H Lactic Acid Calcium Magnesium AST Alkaline Phosphatase Total Creatine Kinase CK-MB (CK-2) Troponin T C-Reactive Protein Total Protein Albumin Cholesterol LDL Cholesterol Direct HDL Cholesterol Free T4 Urine WBC (Auto) Urine Creatinine Urine Total Protein Crossmatch 09/01/18 09/02/18 09/02/18 21:21 03:28 05:25 WBC RBC Hgb Hct MCV MCH MCHC RDW Lymph % (Auto) [place] % (Auto) Eos % (Auto) Lymph # [place] # Eos # Seg Neutrophils % Lymphocytes % (Manual) Seg Neutrophils # Lymphocytes # (Manual) PT INR APTT D-Dimer Heparin Anti-Xa Level POC ABG pH POC ABG pCO2 POC ABG pO2 Sodium Potassium Chloride Carbon Dioxide BUN Creatinine Glucose POC Glucose 236 H 194 H 183 H Lactic Acid Calcium Magnesium AST Alkaline Phosphatase Total Creatine Kinase CK-MB (CK-2) Troponin T C-Reactive Protein Total Protein Albumin Cholesterol LDL Cholesterol Direct HDL Cholesterol Free T4 Urine WBC (Auto) Urine Creatinine Urine Total Protein Crossmatch 09/02/18 09/02/18 09/02/18 09:16 15:30 17:20 WBC RBC Hgb Hct MCV MCH MCHC RDW Lymph % (Auto) [place] % (Auto) Eos % (Auto) Lymph # [place] # Eos # Seg Neutrophils % Lymphocytes % (Manual) Seg Neutrophils # Lymphocytes # (Manual) PT INR APTT D-Dimer Heparin Anti-Xa Level POC ABG pH POC ABG pCO2 POC ABG pO2 Sodium Potassium Chloride Carbon Dioxide BUN Creatinine Glucose POC Glucose 251 H 303 H 316 H Lactic Acid Calcium Magnesium AST Alkaline Phosphatase Total Creatine Kinase CK-MB (CK-2) Troponin T C-Reactive Protein Total Protein Albumin Cholesterol LDL Cholesterol Direct HDL Cholesterol Free T4 Urine WBC (Auto) Urine Creatinine Urine Total Protein Crossmatch 09/02/18 09/03/18 09/03/18 21:25 03:32 05:20 WBC RBC Hgb Hct MCV MCH MCHC RDW Lymph % (Auto) [place] % (Auto) Eos % (Auto) Lymph # [place] # Eos # Seg Neutrophils % Lymphocytes % (Manual) Seg Neutrophils # Lymphocytes # (Manual) PT INR APTT D-Dimer Heparin Anti-Xa Level POC ABG pH POC ABG pCO2 POC ABG pO2 Sodium Potassium Chloride Carbon Dioxide BUN Creatinine Glucose POC Glucose 242 H 305 H 225 H Lactic Acid Calcium Magnesium AST Alkaline Phosphatase Total Creatine Kinase CK-MB (CK-2) Troponin T C-Reactive Protein Total Protein Albumin Cholesterol LDL Cholesterol Direct HDL Cholesterol Free T4 Urine WBC (Auto) Urine Creatinine Urine Total Protein Crossmatch 09/03/18 09/03/18 09/03/18 07:52 07:52 10:19 WBC RBC 3.29 L Hgb 9.0 L Hct 27.3 L MCV 83 L MCH 27 L MCHC RDW 18.4 H Lymph % (Auto) [place] % (Auto) Eos % (Auto) Lymph # [place] # Eos # Seg Neutrophils % Lymphocytes % (Manual) Seg Neutrophils # Lymphocytes # (Manual) PT INR APTT D-Dimer Heparin Anti-Xa Level POC ABG pH POC ABG pCO2 POC ABG pO2 Sodium Potassium Chloride Carbon Dioxide BUN 23 H Creatinine Glucose 205 H POC Glucose 228 H Lactic Acid Calcium 7.9 L Magnesium AST Alkaline Phosphatase Total Creatine Kinase CK-MB (CK-2) Troponin T C-Reactive Protein Total Protein Albumin Cholesterol LDL Cholesterol Direct HDL Cholesterol Free T4 Urine WBC (Auto) Urine Creatinine Urine Total Protein Crossmatch 09/03/18 09/03/18 09/03/18 13:42 17:22 21:33 WBC RBC Hgb Hct MCV MCH MCHC RDW Lymph % (Auto) [place] % (Auto) Eos % (Auto) Lymph # [place] # Eos # Seg Neutrophils % Lymphocytes % (Manual) Seg Neutrophils # Lymphocytes # (Manual) PT INR APTT D-Dimer Heparin Anti-Xa Level POC ABG pH POC ABG pCO2 POC ABG pO2 Sodium Potassium Chloride Carbon Dioxide BUN Creatinine Glucose POC Glucose 221 H 186 H 179 H Lactic Acid Calcium Magnesium AST Alkaline Phosphatase Total Creatine Kinase CK-MB (CK-2) Troponin T C-Reactive Protein Total Protein Albumin Cholesterol LDL Cholesterol Direct HDL Cholesterol Free T4 Urine WBC (Auto) Urine Creatinine Urine Total Protein Crossmatch 09/04/18 09/04/18 02:07 05:54 WBC RBC Hgb Hct MCV MCH MCHC RDW Lymph % (Auto) [place] % (Auto) Eos % (Auto) Lymph # [place] # Eos # Seg Neutrophils % Lymphocytes % (Manual) Seg Neutrophils # Lymphocytes # (Manual) PT INR APTT D-Dimer Heparin Anti-Xa Level POC ABG pH POC ABG pCO2 POC ABG pO2 Sodium Potassium Chloride Carbon Dioxide BUN Creatinine Glucose POC Glucose 174 H 171 H Lactic Acid Calcium Magnesium AST Alkaline Phosphatase Total Creatine Kinase CK-MB (CK-2) Troponin T C-Reactive Protein Total Protein Albumin Cholesterol LDL Cholesterol Direct HDL Cholesterol Free T4 Urine WBC (Auto) Urine Creatinine Urine Total Protein Crossmatch Allied health notes reviewed: nursing
--- NOTE | 2018-09-04 08:03 | Progress Note ---
Assessment and Plan Assessment and plan: Patient is a 77 yo man from [facility] with a history of respiratory failure, CVA with tracheostomy and Gtube who presented to [facility] ED following cardiac arrest after being [facility] at the [facility]. Time down is unknown per records. The patient is on the vent and unresponsive, all history is obtained from the chart. Patient had multiple episodes of arrest/pulselessness. He has been on the vent since then without any improvement. Per ER notes the patient was bagged via tracheostomy which continued to have low tidal volumes and so the patient with orally intubated after which tidal volumes improved. Initially, he went to [facility] may 05 to june 05, he had fluid on brain and multiple strokes per family and they drained the fluid off the brain. The trach was placed at [facility] and patient went to [facility], x 7 weeks (trach was changed where capped was placed), he was doing well, talking and sitting up. Then he went to [facility], August 03 Then on August 12, Friday, he had cardio-respiratory arrest. The [facility] brain flow scan showed reduced blood flow. Patient had evaluation by neurology who reports patient with intact brainstem function. Cardiopulmonary arrest x 3: Supportive care, cardiology and Pulm were follwing. Cardiology now signed off. Acute on chronic respiratory failure Trach has been removed when patient was orally intubated, continue ventilator management per pulmonology. Tracheostomy was replaced by surgery on 08/25/18. Tracheostomy care, airway clearance, secretion management Right pneumothorax, resolved. Status post chest tube, mgt per pulmonology Anoxic encephalopathy: neurology consult appreciated, poor prognosis, poor likelihood of recovery, preserved brain stem function otherwise unresponsive. EEG is suggestive hypoxic encephalopathy. Hypertension. On Hydralazine 75 mg 3 times a day Hypernatremia, Continue free water via G-tube, s/p hypotonic IV solution, monitor bmp closely Acute kidney injury likely due to ATN Nephrology following, continue IV fluid, avoid renal toxic agents NSTEMI: treated with IV heparin, asa, statin, no bblocker due to bradycardia, hypotension, Cardiology was following Severe protein calorie malnutrition: Dietitian consulted, continue tube feedings UTI/sepsis: Continue antibiotics, follow-up urine cultures-->no growth x 48 hours Type 2 dm with persistent hyperglycemia: cont insulins and adjust according, on tube feedings Anemia: s/p transfusion Hypertensive urgency Start norvasc Increase Hydralazine to 100mg tid Hydralazine iv prn Urinary retention: DVT prophylaxis; On Lovenox Disposition. Patient denied LTAC case management discussiong options with family Poor prognosis The high probability of a clinically significant, sudden or life threatening deterioration of the [neurology and respiratory] system(s) required my full and direct attention, intervention and personal management. The aggregate critical care time was [32] minutes. This time is in addition to time spent performing reported procedures but includes the following: [x] Data Review and interpretation [x] Patient assessment and monitoring of vital signs [x] Documentation History Interval history: Still intubated, on vent still unresponsive Hospitalist Physical - Physical exam Narrative exam: Gen: Not in acute distress, lying in bed, intubated HEENT: Normocephalic, atraumatic Neck: supple, no JVD Heart: S1 and S2 reg, no murmurs, rubs or gallop Lungs: Clear, no crackles, no wheeze Abd: soft, non tender, non distended, normal BS Ext: no edema Neuro:intubated, comatose,unresponsive - Constitutional Vitals: Temp Pulse Resp BP Pulse Ox 98.9 F 59 L 14 177/81 99 09/04/18 04:00 09/04/18 07:01 09/04/18 07:01 09/04/18 07:01 09/04/18 07:01 General appearance: Present: other (twitching, nonresponsive, intubated) Results - Labs CBC & Chem 7: 09/03/18 07:52 09/03/18 07:52 Labs: Laboratory Last Values WBC 6.9 K/mm3 (4.5-11.0) 09/03/18 07:52 RBC 3.29 M/mm3 (3.65-5.03) L 09/03/18 07:52 Hgb 9.0 gm/dl (11.8-15.2) L 09/03/18 07:52 Hct 27.3 % (35.5-45.6) L 09/03/18 07:52 MCV 83 fl (84-94) L 09/03/18 07:52 MCH 27 pg (28-32) L 09/03/18 07:52 MCHC 33 % (32-34) 09/03/18 07:52 RDW 18.4 % (13.2-15.2) H 09/03/18 07:52 Plt Count 227 K/mm3 (140-440) 09/03/18 07:52 Lymph % (Auto) 26.8 % (13.4-35.0) 09/01/18 05:19 [place] % (Auto) 7.9 % (0.0-7.3) H 09/01/18 05:19 Eos % (Auto) 6.1 % (0.0-4.3) H 09/01/18 05:19 Baso % (Auto) 0.7 % (0.0-1.8) 09/01/18 05:19 Lymph # 1.7 K/mm3 (1.2-5.4) 09/01/18 05:19 [place] # 0.5 K/mm3 (0.0-0.8) 09/01/18 05:19 Eos # 0.4 K/mm3 (0.0-0.4) 09/01/18 05:19 Baso # 0.0 K/mm3 (0.0-0.1) 09/01/18 05:19 Add Manual Diff Complete 08/12/18 21:44 Total Counted 100 08/12/18 21:44 Seg Neutrophils % 58.5 % (40.0-70.0) 09/01/18 05:19 Seg Neuts % (Manual) 44.0 % (40.0-70.0) 08/12/18 21:44 0 % 08/12/18 21:44 48.0 % (13.4-35.0) H 08/12/18 21:44 Reactive Lymphs % (Man) 0 % 08/12/18 21:44 2.0 % (0.0-7.3) 08/12/18 21:44 1.0 % (0.0-4.3) 08/12/18 21:44 0 % (0.0-1.8) 08/12/18 21:44 1.0 % 08/12/18 21:44 4.0 % 08/12/18 21:44 0 % 08/12/18 21:44 0 % 08/12/18 21:44 Nucleated RBC % Not Reportable 08/12/18 21:44 Seg Neutrophils # 3.6 K/mm3 (1.8-7.7) 09/01/18 05:19 Seg Neutrophils # Man 6.8 K/mm3 (1.8-7.7) 08/12/18 21:44 Band Neutrophils # 0.0 K/mm3 08/12/18 21:44 7.4 K/mm3 (1.2-5.4) H 08/12/18 21:44 Abs React Lymphs (Man) 0.0 K/mm3 08/12/18 21:44 0.3 K/mm3 (0.0-0.8) 08/12/18 21:44 0.2 K/mm3 (0.0-0.4) 08/12/18 21:44 0.0 K/mm3 (0.0-0.1) 08/12/18 21:44 0.2 K/mm3 08/12/18 21:44 0.6 K/mm3 08/12/18 21:44 0.0 K/mm3 08/12/18 21:44 Blast Cells # 0.0 K/mm3 08/12/18 21:44 WBC Morphology Not Reportable 08/12/18 21:44 Hypersegmented Neuts Not Reportable 08/12/18 21:44 Hyposegmented Neuts Not Reportable 08/12/18 21:44 Hypogranular Neuts Not Reportable 08/12/18 21:44 Not Reportable 08/12/18 21:44 Not Reportable 08/12/18 21:44 Not Reportable 08/12/18 21:44 Not Reportable 08/12/18 21:44 Not Reportable 08/12/18 21:44 Not Reportable 08/12/18 21:44 Consistent w auto 08/12/18 21:44 Not Reportable 08/12/18 21:44 Plt Clumps, EDTA Not Reportable 08/12/18 21:44 Not Reportable 08/12/18 21:44 Not Reportable 08/12/18 21:44 Not Reportable 08/12/18 21:44 Plt Morphology Comment Not Reportable 08/12/18 21:44 RBC Morphology Not Reportable 08/12/18 21:44 Dimorphic RBCs Not Reportable 08/12/18 21:44 Not Reportable 08/12/18 21:44 Not Reportable 08/12/18 21:44 Not Reportable 08/12/18 21:44 Few 08/12/18 21:44 Not Reportable 08/12/18 21:44 Not Reportable 08/12/18 21:44 Not Reportable 08/12/18 21:44 Not Reportable 08/12/18 21:44 Not Reportable 08/12/18 21:44 Not Reportable 08/12/18 21:44 Not Reportable 08/12/18 21:44 Few 08/12/18 21:44 Not Reportable 08/12/18 21:44 Not Reportable 08/12/18 21:44 Not Reportable 08/12/18 21:44 Not Reportable 08/12/18 21:44 Not Reportable 08/12/18 21:44 Not Reportable 08/12/18 21:44 Few 08/12/18 21:44 Acanthocytes (Spur) Not Reportable 08/12/18 21:44 Rouleaux Not Reportable 08/12/18 21:44 Not Reportable 08/12/18 21:44 Not Reportable 08/12/18 21:44 Not Reportable 08/12/18 21:44 Not Reportable 08/12/18 21:44 Hem Pathologist Commnt No 08/12/18 21:44 PT 16.5 Sec. (12.2-14.9) H 08/13/18 00:47 INR 1.25 (0.87-1.13) H 08/13/18 00:47 APTT 79.0 Sec. (24.2-36.6) H* 08/15/18 06:35 2742.50 ng/mlDDU (0-234) H 08/13/18 20:07 Heparin Anti-Xa Level 0.26 U.I./ml (0.3-0.7) L 08/16/18 20:01 POC ABG pH 7.389 (7.35-7.45) 08/31/18 22:25 POC ABG pCO2 45.6 (35-45) H 08/31/18 22:25 POC ABG pO2 135 (80-105) H 08/31/18 22:25 POC ABG HCO3 27.5 (22-26 mml/L) 08/31/18 22:25 POC ABG Total CO2 29 (23-27mmol/L) 08/31/18 22:25 POC ABG O2 Sat 99 08/31/18 22:25 POC ABG Base Excess 3 ((-2) - (+3)mmol/L) 08/31/18 22:25 28 % 08/31/18 22:25 Sodium 144 mmol/L (137-145) 09/03/18 07:52 Potassium 3.8 mmol/L (3.6-5.0) 09/03/18 07:52 Chloride 105.8 mmol/L (98-107) 09/03/18 07:52 Carbon Dioxide 30 mmol/L (22-30) 09/03/18 07:52 12 mmol/L 09/03/18 07:52 BUN 23 mg/dL (9-20) H 09/03/18 07:52 0.8 mg/dL (0.8-1.5) 09/03/18 07:52 Estimated GFR > 60 ml/min 09/03/18 07:52 29 % 09/03/18 07:52 Glucose 205 mg/dL (75-100) H 09/03/18 07:52 POC Glucose 171 (70-105) H 09/04/18 05:54 Lactic Acid 2.80 mmol/L (0.7-2.0) H* 08/13/18 12:53 Calcium 7.9 mg/dL (8.4-10.2) L 09/03/18 07:52 Phosphorus 3.90 mg/dL (2.5-4.5) 08/15/18 04:05 Magnesium 2.20 mg/dL (1.7-2.3) 08/15/18 04:05 < 0.20 mg/dL (0.1-1.2) 08/30/18 05:40 AST 50 units/L (5-40) H 08/30/18 05:40 ALT 31 units/L (7-56) 08/30/18 05:40 158 units/L (35-129) H 08/30/18 05:40 309 units/L (55-170) H 08/13/18 10:10 CK-MB (CK-2) 4.1 ng/mL (0.0-4.0) H 08/13/18 10:10 CK-MB (CK-2) Rel Index 1.3 (0-4) 08/13/18 10:10 0.409 ng/mL (0.00-0.029) H* 08/14/18 04:03 16.90 mg/dL (0.00-1.30) H 08/13/18 12:53 6.4 g/dL (6.3-8.2) 08/30/18 05:40 1.6 g/dL (3.9-5) L 08/30/18 05:40 0.3 % 08/30/18 05:40 Triglycerides 62 mg/dL (2-149) 08/13/18 00:32 Cholesterol 46 mg/dL (50-199) L 08/13/18 00:32 17 mg/dL (50-130) L 08/13/18 00:32 6 mg/dL (40-59) L 08/13/18 00:32 7.66 % 08/13/18 00:32 TSH 0.973 mlU/mL (0.270-4.200) 08/26/18 09:00 Free T4 0.51 ng/dL (0.76-1.46) L 08/26/18 09:00 Yellow (Yellow) 08/25/18 12:40 Turbid (Clear) 08/25/18 12:40 7.0 (5.0-7.0) 08/25/18 12:40 Ur Specific [place] 1.009 (1.003-1.030) 08/25/18 12:40 100 mg/dl mg/dL (Negative) 08/25/18 12:40 Neg mg/dL (Negative) 08/25/18 12:40 Neg mg/dL (Negative) 08/25/18 12:40 Mod (Negative) 08/25/18 12:40 Neg (Negative) 08/25/18 12:40 Neg (Negative) 08/25/18 12:40 < 2.0 mg/dL (<2.0) 08/25/18 12:40 Ur Leukocyte Esterase Lg (Negative) 08/25/18 12:40 > 182.0 /HPF (0.0-6.0) H 08/25/18 12:40 10.0 /HPF (0.0-6.0) 08/25/18 12:40 U Epithel Cells (Auto) 5.0 /HPF (0-13.0) 08/25/18 12:40 2+ /HPF (Negative) 08/13/18 00:50 3+ /HPF 08/25/18 12:40 None seen (None Seen) 08/14/18 17:20 60.9 mg/dL (0.1-20.0) H 08/14/18 17:20 32 mmol/L 08/14/18 17:20 64 mg/dL (5-11.8) H 08/14/18 17:20 Presumptive negative 08/12/18 21:30 Presumptive negative 08/12/18 21:30 Ur Barbiturates Screen Presumptive negative 08/12/18 21:30 Ur Phencyclidine Scrn Presumptive negative 08/12/18 21:30 Ur Amphetamines Screen Presumptive negative 08/12/18 21:30 U Benzodiazepines Scrn Presumptive negative 08/12/18 21:30 Presumptive negative 08/12/18 21:30 U Marijuana (THC) Screen Presumptive negative 08/12/18 21:30 Disclamer 08/12/18 21:30 Blood Type O POSITIVE 08/15/18 15:31 Antibody Screen Negative 08/15/18 15:31 Crossmatch See Detail 08/15/18 15:31 Active Medications - Current Medications Current Medications: Generic Name Dose Route Start Last Admin Trade Name Freq PRN Reason Stop Dose Admin Acetaminophen 650 mg 08/13/18 11:40 08/13/18 16:09 Tylenol PO 650 mg Q6H PRN Administration Fever >101 Amlodipine Besylate 5 mg 09/02/18 10:00 09/03/18 09:57 Norvasc FEEDTUBE 5 mg QDAY LENCHO Administration Lipase/Protease/Amylase 1 each 08/25/18 18:36 Pancregarrett Alas 10,500 Unit FEEDTUBE PRN PRN For Clogged Feeding Tube Aspirin 325 mg 08/17/18 10:00 09/03/18 09:56 Aspirin PO 325 mg QDAY LENCHO Administration Atorvastatin Calcium 40 mg 08/14/18 22:00 09/03/18 21:55 Lipitor PO 40 mg QHS LENCHO Administration Dextrose 50 ml 08/13/18 01:34 D50w (25gm) Syringe IV PRN PRN Hypoglycemia Enoxaparin Sodium 40 mg 08/17/18 22:00 09/03/18 22:39 Lovenox SUB-Q 40 mg QDAY@2200 LENCHO Administration Famotidine 20 mg 08/19/18 10:00 09/03/18 21:50 Pepcid PO 20 mg BID LENCHO Administration Hydralazine HCl 100 mg 09/02/18 09:00 09/03/18 22:00 Apresoline PO 100 mg Q8HR LENCHO Administration Hydralazine HCl 20 mg 09/02/18 08:16 Apresoline IV Q4HR PRN SBP>160 or DBP>110 Hydrophilic Ointment 1 applic 08/13/18 12:21 Vaseline Lip Therapy TP Q2HR PRN Dry Lips Insulin Glargine 25 units 09/03/18 22:00 09/03/18 21:50 Lantus SUB-Q 25 units QHS LENCHO Administration Insulin Human Lispro 0 unit 08/26/18 10:00 09/03/18 21:55 Humalog SUB-Q 2 unit Q4HR LENCHO Administration Protocol Levetiracetam 500 mg 08/27/18 22:00 09/03/18 21:50 Keppra PO 500 mg BID LENCHO Administration Modafinil 100 mg 08/27/18 10:00 09/03/18 09:56 Provigil PO 100 mg QAM LENCHO Administration Multi-Ingred Cream/Lotion/Oil/Oint 1 applic 08/13/18 12:21 08/17/18 00:41 Artificial Tears Ophth Oint OU 1 applic Q4HR PRN Administration Dry Eye(s) Ondansetron HCl 4 mg 08/13/18 01:34 Zofran IV Q8H PRN Nausea And Vomiting Simple Syrup 15 ml 08/25/18 18:36 Simple Syrup FEEDTUBE PRN PRN Hypoglycemia Simple Syrup 30 ml 08/25/18 18:36 Simple Syrup FEEDTUBE PRN PRN Hypoglycemia Sodium Bicarbonate 325 mg 08/25/18 18:36 Sodium Bicarbonate FEEDTUBE PRN PRN For Clogged Feeding Tube Sodium Chloride 10 ml 08/13/18 10:00 09/03/18 22:40 Sodium Chloride Flush Syringe 10 Ml IV 10 ml BID LENCHO Administration Sodium Chloride 10 ml 08/13/18 01:34 08/30/18 22:29 Sodium Chloride Flush Syringe 10 Ml IV 10 ml PRN PRN Administration LINE FLUSH Nutrition/Malnutrition Assess - Dietary Evaluation Nutrition/Malnutrition Findings: Nutrition Notes Start: 08/13/18 15:41 Freq: Status: Active Protocol: Document 09/03/18 16:28 RM (Rec: 09/03/18 16:32 RM [id number]) Nutrition Notes Initial or Follow up Reassessment Current Diagnosis Acute Kidney Injury,Diabetes Other Pertinent Diagnosis UTI, Hx CVA, PEG, Sacral PU, Multiple PU, Anoxic brain injury,R pneumothorax Current Diet Vital 1.2 at 60 ml/hr Labs/Tests Reviewed Pertinent Medications Reviewed Height 5 ft 8 in Weight 78.5 kg [place] Body Weight (kg) 70.00 BMI 26.3 Subjective/Other Information Observed Vital 1.2 hanging in room but not infusing. Nurse unsure why TF was off and turned it back on. Program Production Specialist saw that TF rate was at goal. Stated that pt has been tolerating TF at goal. Percent of energy/protein needs met: 97%/100% Burn Absent Trauma Absent #1 Nutrition Diagnosis Inadequate oral intake Diagnosis Progress(for reassessment Continues documentation) Is patient on ventilator? Yes Is Patient Ambulatory and/or Out of Bed No REE-([place]-St. Jeor-confined to bed) [phone] Calculation [facility]ations [facility] Additional Notes Protein Needs: 87-145g (1.2-2g /kg) Fluid Needs: 1 ml/kcal Nutrition Intervention Change Diet Order: TF Nutrition Support: Vital 1.2 at 60 ml/hr. Water flush of 250ml q4h for hypernatremia and 100 mls q 4 hrs once resolved. Kcal 1,728 Protein (gm) 108 Fluid (mL) 1,167 Fiber (gm) 7 Add Supplement/Snack (indicate name/kcal Magen BID /protein ) Provides kCal: 190 Provides Protein (gm) 5 Goal #1 Meet at least 80% of calorie and protein needs via TF Anticipated Discharge Needs: TF Follow-Up By: 09/10/18 Additional Comments Follow for TF tolerance
[2018-09-04] MEDS: ASPIRIN PO SCH (11:12)
[2018-09-04] MEDS: NORVASC FEEDTUBE SCH (11:12)
[2018-09-04] MEDS: KEPPRA PO SCH ×2 (11:12→23:42)
[2018-09-04] MEDS: PEPCID PO SCH (11:15)
[2018-09-04] MEDS: SODIUM CHLORIDE FLUSH SYRINGE 10 ML IV SCH (11:15)
[2018-09-04] MEDS: LOVENOX SUB-Q SCH (23:42)
[2018-09-04] MEDS: LANTUS SUB-Q SCH (23:46)
[2018-09-05] MEDS: HumaLOG SUB-Q SCH ×6 (03:14→22:56)
[2018-09-05] MEDS: PEPCID PO SCH ×3 (03:14→22:01)
[2018-09-05] MEDS: SODIUM CHLORIDE FLUSH SYRINGE 10 ML IV SCH ×3 (03:15→22:58)
[2018-09-05 05:28] LABS: Hemoglobin 8.7 gm/dl (11.8-15.2); Mean Corpuscular HGB Conc 33 % (32-34); Mean Corpuscular Volume 82 fl (84-94); Platelet Count 248 K/mm3 (140-440); Red Blood Count 3.16 M/mm3 (3.65-5.03); Red Cell Distribution Width 18.9 % (13.2-15.2)
[2018-09-05 05:39] LABS: BUN/Creatinine Ratio 33; Blood Urea Nitrogen 23 mg/dL (9-20); Calcium 8.3 mg/dL (8.4-10.2); Hemolysis Index 1
[2018-09-05] MEDS: APRESOLINE PO SCH ×3 (06:46→22:01)
[2018-09-05] MEDS: NORVASC FEEDTUBE SCH (09:18)
[2018-09-05] MEDS: ASPIRIN PO SCH (09:19)
[2018-09-05] MEDS: KEPPRA PO SCH ×2 (09:20→22:00)
--- NOTE | 2018-09-05 09:49 | Progress Note ---
Assessment and Plan Assessment and plan: Patient is a 77 yo man from [facility] with a history of respiratory failure, CVA with tracheostomy and Gtube who presented to [facility] ED following cardiac arrest after being found unresponsive at the intermediate. Time down is unknown per records. The patient is on the vent and unresponsive, all history is obtained from the chart. Patient had multiple episodes of arrest/pulselessness. He has been on the vent since then without any improvement. Per ER notes the patient was bagged via tracheostomy which continued to have low tidal volumes and so the patient with orally intubated after which tidal volumes improved. Initially, he went to [facility] may 05 to june 05, he had fluid on brain and multiple strokes per family and they drained the fluid off the brain. The trach was placed at [facility] and patient went to [facility], x 7 weeks (trach was changed where capped was placed), he was doing well, talking and sitting up. Then he went to [facility], August 03 Then on August 12, Friday, he had cardio-respiratory arrest. The HI brain flow scan showed reduced blood flow. Patient had evaluation by neurology who reports patient with intact brainstem function. Cardiopulmonary arrest x 3: Supportive care, cardiology and Pulm were follwing. Cardiology now signed off. Acute on chronic respiratory failure Trach has been removed when patient was orally intubated, continue ventilator management per pulmonology. Tracheostomy was replaced by surgery on 08/25/18. Tracheostomy care, airway clearance, secretion management Right pneumothorax, resolved. Status post chest tube, mgt per pulmonology Anoxic encephalopathy: neurology consult appreciated, poor prognosis, poor likelihood of recovery, preserved brain stem function otherwise unresponsive. EEG is suggestive hypoxic encephalopathy. Hypertension. On Hydralazine 75 mg 3 times a day Hypernatremia, Continue free water via G-tube, s/p hypotonic IV solution, monitor bmp closely Acute kidney injury likely due to ATN Nephrology following, continue IV fluid, avoid renal toxic agents NSTEMI: treated with IV heparin, asa, statin, no bblocker due to bradycardia, hypotension, Cardiology was following Severe protein calorie malnutrition: Dietitian consulted, continue tube feedings UTI/sepsis: Continue antibiotics, follow-up urine cultures-->no growth x 48 hours Type 2 dm with persistent hyperglycemia: cont insulins and adjust according, on tube feedings Anemia: s/p transfusion Hypertensive urgency Start norvasc Increase Hydralazine to 100mg tid Hydralazine iv prn Urinary retention: DVT prophylaxis; On Lovenox Disposition. Patient denied LTAC case management discussing options with family Poor prognosis The high probability of a clinically significant, sudden or life threatening deterioration of the [neurology and respiratory] system(s) required my full and direct attention, intervention and personal management. The aggregate critical care time was [33] minutes. This time is in addition to time spent performing reported procedures but includes the following: [x] Data Review and interpretation [x] Patient assessment and monitoring of vital signs [x] Documentation History Interval history: Still intubated, on vent still unresponsive Hospitalist Physical - Physical exam Narrative exam: Gen: Not in acute distress, lying in bed, intubated HEENT: Normocephalic, atraumatic Neck: supple, no JVD Heart: S1 and S2 reg, no murmurs, rubs or gallop Lungs: Clear, no crackles, no wheeze Abd: soft, non tender, non distended, normal BS Ext: no edema Neuro:intubated, comatose,unresponsive - Constitutional Vitals: Temp Pulse Resp BP Pulse Ox 99.1 F 78 14 109/55 100 09/05/18 03:47 09/05/18 09:18 09/05/18 08:30 09/05/18 09:18 09/05/18 08:30 General appearance: Present: other (twitching, nonresponsive, intubated) Results - Labs CBC & Chem 7: 09/05/18 04:52 09/05/18 04:52 Labs: Laboratory Last Values WBC 9.9 K/mm3 (4.5-11.0) 09/05/18 04:52 RBC 3.16 M/mm3 (3.65-5.03) L 09/05/18 04:52 Hgb 8.7 gm/dl (11.8-15.2) L 09/05/18 04:52 Hct 26.0 % (35.5-45.6) L 09/05/18 04:52 MCV 82 fl (84-94) L 09/05/18 04:52 MCH 28 pg (28-32) 09/05/18 04:52 MCHC 33 % (32-34) 09/05/18 04:52 RDW 18.9 % (13.2-15.2) H 09/05/18 04:52 Plt Count 248 K/mm3 (140-440) 09/05/18 04:52 Lymph % (Auto) 26.8 % (13.4-35.0) 09/01/18 05:19 [place] % (Auto) 7.9 % (0.0-7.3) H 09/01/18 05:19 Eos % (Auto) 6.1 % (0.0-4.3) H 09/01/18 05:19 Baso % (Auto) 0.7 % (0.0-1.8) 09/01/18 05:19 Lymph # 1.7 K/mm3 (1.2-5.4) 09/01/18 05:19 [place] # 0.5 K/mm3 (0.0-0.8) 09/01/18 05:19 Eos # 0.4 K/mm3 (0.0-0.4) 09/01/18 05:19 Baso # 0.0 K/mm3 (0.0-0.1) 09/01/18 05:19 Add Manual Diff Complete 08/12/18 21:44 Total Counted 100 08/12/18 21:44 Seg Neutrophils % 58.5 % (40.0-70.0) 09/01/18 05:19 Seg Neuts % (Manual) 44.0 % (40.0-70.0) 08/12/18 21:44 0 % 08/12/18 21:44 48.0 % (13.4-35.0) H 08/12/18 21:44 Reactive Lymphs % (Man) 0 % 08/12/18 21:44 2.0 % (0.0-7.3) 08/12/18 21:44 1.0 % (0.0-4.3) 08/12/18 21:44 0 % (0.0-1.8) 08/12/18 21:44 1.0 % 08/12/18 21:44 4.0 % 08/12/18 21:44 0 % 08/12/18 21:44 0 % 08/12/18 21:44 Nucleated RBC % Not Reportable 08/12/18 21:44 Seg Neutrophils # 3.6 K/mm3 (1.8-7.7) 09/01/18 05:19 Seg Neutrophils # Man 6.8 K/mm3 (1.8-7.7) 08/12/18 21:44 Band Neutrophils # 0.0 K/mm3 08/12/18 21:44 7.4 K/mm3 (1.2-5.4) H 08/12/18 21:44 Abs React Lymphs (Man) 0.0 K/mm3 08/12/18 21:44 0.3 K/mm3 (0.0-0.8) 08/12/18 21:44 0.2 K/mm3 (0.0-0.4) 08/12/18 21:44 0.0 K/mm3 (0.0-0.1) 08/12/18 21:44 0.2 K/mm3 08/12/18 21:44 0.6 K/mm3 08/12/18 21:44 0.0 K/mm3 08/12/18 21:44 Blast Cells # 0.0 K/mm3 08/12/18 21:44 WBC Morphology Not Reportable 08/12/18 21:44 Hypersegmented Neuts Not Reportable 08/12/18 21:44 Hyposegmented Neuts Not Reportable 08/12/18 21:44 Hypogranular Neuts Not Reportable 08/12/18 21:44 Not Reportable 08/12/18 21:44 Not Reportable 08/12/18 21:44 Not Reportable 08/12/18 21:44 Not Reportable 08/12/18 21:44 Not Reportable 08/12/18 21:44 Not Reportable 08/12/18 21:44 Consistent w auto 08/12/18 21:44 Not Reportable 08/12/18 21:44 Plt Clumps, EDTA Not Reportable 08/12/18 21:44 Not Reportable 08/12/18 21:44 Not Reportable 08/12/18 21:44 Not Reportable 08/12/18 21:44 Plt Morphology Comment Not Reportable 08/12/18 21:44 RBC Morphology Not Reportable 08/12/18 21:44 Dimorphic RBCs Not Reportable 08/12/18 21:44 Not Reportable 08/12/18 21:44 Not Reportable 08/12/18 21:44 Not Reportable 08/12/18 21:44 Few 08/12/18 21:44 Not Reportable 08/12/18 21:44 Not Reportable 08/12/18 21:44 Not Reportable 08/12/18 21:44 Not Reportable 08/12/18 21:44 Not Reportable 08/12/18 21:44 Not Reportable 08/12/18 21:44 Not Reportable 08/12/18 21:44 Few 08/12/18 21:44 Not Reportable 08/12/18 21:44 Not Reportable 08/12/18 21:44 Not Reportable 08/12/18 21:44 Not Reportable 08/12/18 21:44 Not Reportable 08/12/18 21:44 Not Reportable 08/12/18 21:44 Few 08/12/18 21:44 Acanthocytes (Spur) Not Reportable 08/12/18 21:44 Rouleaux Not Reportable 08/12/18 21:44 Not Reportable 08/12/18 21:44 Not Reportable 08/12/18 21:44 Not Reportable 08/12/18 21:44 Not Reportable 08/12/18 21:44 Hem Pathologist Commnt No 08/12/18 21:44 PT 16.5 Sec. (12.2-14.9) H 08/13/18 00:47 INR 1.25 (0.87-1.13) H 08/13/18 00:47 APTT 79.0 Sec. (24.2-36.6) H* 08/15/18 06:35 2742.50 ng/mlDDU (0-234) H 08/13/18 20:07 Heparin Anti-Xa Level 0.26 U.I./ml (0.3-0.7) L 08/16/18 20:01 POC ABG pH 7.389 (7.35-7.45) 08/31/18 22:25 POC ABG pCO2 45.6 (35-45) H 08/31/18 22:25 POC ABG pO2 135 (80-105) H 08/31/18 22:25 POC ABG HCO3 27.5 (22-26 mml/L) 08/31/18 22:25 POC ABG Total CO2 29 (23-27mmol/L) 08/31/18 22:25 POC ABG O2 Sat 99 08/31/18 22:25 POC ABG Base Excess 3 ((-2) - (+3)mmol/L) 08/31/18 22:25 28 % 08/31/18 22:25 Sodium 142 mmol/L (137-145) 09/05/18 04:52 Potassium 3.8 mmol/L (3.6-5.0) 09/05/18 04:52 Chloride 107.2 mmol/L (98-107) H 09/05/18 04:52 Carbon Dioxide 29 mmol/L (22-30) 09/05/18 04:52 10 mmol/L 09/05/18 04:52 BUN 23 mg/dL (9-20) H 09/05/18 04:52 0.7 mg/dL (0.8-1.5) L 09/05/18 04:52 Estimated GFR > 60 ml/min 09/05/18 04:52 33 % 09/05/18 04:52 Glucose 215 mg/dL (75-100) H 09/05/18 04:52 POC Glucose 216 (70-105) H 09/05/18 05:36 Lactic Acid 2.80 mmol/L (0.7-2.0) H* 08/13/18 12:53 Calcium 8.3 mg/dL (8.4-10.2) L 09/05/18 04:52 Phosphorus 3.90 mg/dL (2.5-4.5) 08/15/18 04:05 Magnesium 2.20 mg/dL (1.7-2.3) 08/15/18 04:05 < 0.20 mg/dL (0.1-1.2) 08/30/18 05:40 AST 50 units/L (5-40) H 08/30/18 05:40 ALT 31 units/L (7-56) 08/30/18 05:40 158 units/L (35-129) H 08/30/18 05:40 309 units/L (55-170) H 08/13/18 10:10 CK-MB (CK-2) 4.1 ng/mL (0.0-4.0) H 08/13/18 10:10 CK-MB (CK-2) Rel Index 1.3 (0-4) 08/13/18 10:10 0.409 ng/mL (0.00-0.029) H* 08/14/18 04:03 16.90 mg/dL (0.00-1.30) H 08/13/18 12:53 6.4 g/dL (6.3-8.2) 08/30/18 05:40 1.6 g/dL (3.9-5) L 08/30/18 05:40 0.3 % 08/30/18 05:40 Triglycerides 62 mg/dL (2-149) 08/13/18 00:32 Cholesterol 46 mg/dL (50-199) L 08/13/18 00:32 17 mg/dL (50-130) L 08/13/18 00:32 6 mg/dL (40-59) L 08/13/18 00:32 7.66 % 08/13/18 00:32 TSH 0.973 mlU/mL (0.270-4.200) 08/26/18 09:00 Free T4 0.51 ng/dL (0.76-1.46) L 08/26/18 09:00 Yellow (Yellow) 08/25/18 12:40 Turbid (Clear) 08/25/18 12:40 7.0 (5.0-7.0) 08/25/18 12:40 Ur Specific Jachin 1.009 (1.003-1.030) 08/25/18 12:40 100 mg/dl mg/dL (Negative) 08/25/18 12:40 Neg mg/dL (Negative) 08/25/18 12:40 Neg mg/dL (Negative) 08/25/18 12:40 Mod (Negative) 08/25/18 12:40 Neg (Negative) 08/25/18 12:40 Neg (Negative) 08/25/18 12:40 < 2.0 mg/dL (<2.0) 08/25/18 12:40 Ur Leukocyte Esterase Lg (Negative) 08/25/18 12:40 > 182.0 /HPF (0.0-6.0) H 08/25/18 12:40 10.0 /HPF (0.0-6.0) 05/28/19 12:40 U Epithel Cells (Auto) 5.0 /HPF (0-13.0) 08/25/18 12:40 2+ /HPF (Negative) 08/13/18 00:50 3+ /HPF 08/25/18 12:40 None seen (None Seen) 08/14/18 17:20 60.9 mg/dL (0.1-20.0) H 08/14/18 17:20 32 mmol/L 08/14/18 17:20 64 mg/dL (5-11.8) H 08/14/18 17:20 Presumptive negative 08/12/18 21:30 Presumptive negative 08/12/18 21:30 Ur Barbiturates Screen Presumptive negative 08/12/18 21:30 Ur Phencyclidine Scrn Presumptive negative 08/12/18 21:30 Ur Amphetamines Screen Presumptive negative 08/12/18 21:30 U Benzodiazepines Scrn Presumptive negative 08/12/18 21:30 Presumptive negative 08/12/18 21:30 U Marijuana (THC) Screen Presumptive negative 08/12/18 21:30 Disclamer 08/12/18 21:30 Blood Type O POSITIVE 08/15/18 15:31 Antibody Screen Negative 08/15/18 15:31 Crossmatch See Detail 08/15/18 15:31 Active Medications - Current Medications Current Medications: Generic Name Dose Route Start Last Admin Trade Name Freq PRN Reason Stop Dose Admin Acetaminophen 650 mg 08/13/18 11:40 08/13/18 16:09 Tylenol PO 650 mg Q6H PRN Administration Fever >101 Amlodipine Besylate 5 mg 09/02/18 10:00 09/05/18 09:18 Norvasc FEEDTUBE 5 mg QDAY LENCHO Administration Lipase/Protease/Amylase 1 each 08/25/18 18:36 Pancregarrett Alas 10,500 Unit FEEDTUBE PRN PRN For Clogged Feeding Tube Aspirin 325 mg 08/17/18 10:00 09/05/18 09:19 Aspirin PO 325 mg QDAY LENCHO Administration Atorvastatin Calcium 40 mg 08/14/18 22:00 09/04/18 23:41 Lipitor PO 40 mg QHS LENCHO Administration Dextrose 50 ml 08/13/18 01:34 D50w (25gm) Syringe IV PRN PRN Hypoglycemia Enoxaparin Sodium 40 mg 08/17/18 22:00 09/04/18 23:42 Lovenox SUB-Q 40 mg QDAY@2200 LENCHO Administration Famotidine 20 mg 08/19/18 10:00 09/05/18 09:18 Pepcid PO 20 mg BID LENCHO Administration Hydralazine HCl 100 mg 09/02/18 09:00 09/05/18 06:46 Apresoline PO 100 mg Q8HR LENCHO Administration Hydralazine HCl 20 mg 09/02/18 08:16 Apresoline IV Q4HR PRN SBP>160 or DBP>110 Hydrophilic Ointment 1 applic 08/13/18 12:21 Vaseline Lip Therapy TP Q2HR PRN Dry Lips Insulin Glargine 25 units 09/03/18 22:00 09/04/18 23:46 Lantus SUB-Q 25 units QHS LENCHO Administration Insulin Human Lispro 0 unit 08/26/18 10:00 09/05/18 06:47 Humalog SUB-Q 3 unit Q4HR LENCHO Administration Protocol Levetiracetam 500 mg 08/27/18 22:00 09/05/18 09:20 Keppra PO 500 mg BID LENCHO Administration Multi-Ingred Cream/Lotion/Oil/Oint 1 applic 08/13/18 12:21 08/17/18 00:41 Artificial Tears Ophth Oint OU 1 applic Q4HR PRN Administration Dry Eye(s) Ondansetron HCl 4 mg 08/13/18 01:34 Zofran IV Q8H PRN Nausea And Vomiting Simple Syrup 15 ml 08/25/18 18:36 Simple Syrup FEEDTUBE PRN PRN Hypoglycemia Simple Syrup 30 ml 08/25/18 18:36 Simple Syrup FEEDTUBE PRN PRN Hypoglycemia Sodium Bicarbonate 325 mg 08/25/18 18:36 Sodium Bicarbonate FEEDTUBE PRN PRN For Clogged Feeding Tube Sodium Chloride 10 ml 08/13/18 10:00 09/05/18 09:20 Sodium Chloride Flush Syringe 10 Ml IV 10 ml BID LENCHO Administration Sodium Chloride 10 ml 08/13/18 01:34 08/30/18 22:29 Sodium Chloride Flush Syringe 10 Ml IV 10 ml PRN PRN Administration LINE FLUSH Nutrition/Malnutrition Assess - Dietary Evaluation Nutrition/Malnutrition Findings: Nutrition Notes Start: 08/13/18 15:41 Freq: Status: Active Protocol: Document 09/03/18 16:28 RM (Rec: 09/03/18 16:32 RM [id number]) Nutrition Notes Initial or Follow up Reassessment Current Diagnosis Acute Kidney Injury,Diabetes Other Pertinent Diagnosis UTI, Hx CVA, PEG, Sacral PU, Multiple PU, Anoxic brain injury,R pneumothorax Current Diet Vital 1.2 at 60 ml/hr Labs/Tests Reviewed Pertinent Medications Reviewed Height 5 ft 8 in Weight 78.5 kg [place] Body Weight (kg) 70.00 BMI 26.3 Subjective/Other Information Observed Vital 1.2 hanging in room but not infusing. Nurse unsure why TF was off and turned it back on. Configuration Manager saw that TF rate was at goal. Stated that pt has been tolerating TF at goal. Percent of energy/protein needs met: 97%/100% Burn Absent Trauma Absent #1 Nutrition Diagnosis Inadequate oral intake Diagnosis Progress(for reassessment Continues documentation) Is patient on ventilator? Yes Is Patient Ambulatory and/or Out of Bed No REE-([place]-confined to bed) 2765.583 Calculation Used for Recommendations [facility] Additional Notes Protein Needs: 87-145g (1.2-2g /kg) Fluid Needs: 1 ml/kcal Nutrition Intervention Change Diet Order: TF Nutrition Support: Vital 1.2 at 60 ml/hr. Water flush of 250ml q4h for hypernatremia and 100 mls q 4 hrs once resolved. Kcal 1,728 Protein (gm) 108 Fluid (mL) 1,167 Fiber (gm) 7 Add Supplement/Snack (indicate name/kcal Magen BID /protein ) Provides kCal: 190 Provides Protein (gm) 5 Goal #1 Meet at least 80% of calorie and protein needs via TF Anticipated Discharge Needs: TF Follow-Up By: 09/10/18 Additional Comments Follow for TF tolerance
--- NOTE | 2018-09-05 15:20 | Progress Note ---
Assessment and Plan Acute hypoxemic respiratory failure on chronic. Status post cardiac arrest. Seizure disorder with breakthrough seizures. History of diabetes. History of cerebrovascular accident. Oropharyngeal dysphagia. History of seizures. - begin daytime t-piece trials as tolerated today - ABG after first 2 hours on t-piece - prognosis for significant neurologic recovery to prior baseline (which per his is to be able to respond appropriately) is poor; his is not interested in decelerating care at this point - continue PSV trials as tolerated (if fails t-piece) - continue to avoid sedatives - prn ABG's & CXR's at this point - continue Keppra for seizures with prn ativan IV for breakthrough (now dosed at 500mg IV bid) - continue provigil - continue bronchodilators with routine trach care and pulmonary hygiene per RT - neurology evaluation noted and input appreciated - continue GI & VTE prophylaxis - continue to wean supplemental oxygen to keep O2 sats 88-90% - Lung protective strategies - VAP bundle addressed - Continue cardioprotective measures - Replete electrolytes as indicated - Continue to rest at night on full MVS - Monitor renal indices closely - Avoid nephrotoxic agents, adjust all medications for CrCL - Strict intake and output monitoring - continue enteral nutrition as tolerated - continue accuchecks with glycemic control per SSI for target glucose of 140- 180 mg/dL (Lantus re-introduced) - Maintenance of sleep -wake cycle modalities - Mobility as tolerated by hemodynamics - Influenza and pneumonia vaccination per protocol - discharge planning ongoing concurrently .... care plan discussed at length with in room again today PROGNOSIS: GUARDED CONDITION: CRITICAL CODE STATUS: FULL CODE The high probability of a clinically significant, sudden or life-threatening deterioration of the [respiratory, neurology, renal] system(s) required my full and direct attention, intervention and personal management. The aggregate critical care time was [35] minutes without overlap. Time includes spent on; [x] Data Review and interpretation [x] Patient assessment and monitoring of vital signs [x] Documentation [x] Medication orders and management Subjective Date of service: 09/05/18 Principal diagnosis: Acute hypoxemic resp failure; S/P cardiac arrest; Seizures; DM II; H/O CVA Interval history: Patient is seen today for: Acute hypoxemic respiratory failure on chronic; Status post cardiac arrest; Seizure disorder with breakthrough seizures; History of diabetes; History of cerebrovascular accident; Oropharyngeal dysphagia; History of seizures. Seen and examined at bedside; 24hour events reviewed; nursing and respiratory care staff consulted; no adverse overnight events reported to me; remains on MVS; AMS is persistent; tolerating PSV at 10/6; still with some apnea's but not as prolonged; his is visiting; no emesis or overt aspiration and no seizures Objective Vital Signs - 12hr 09/05/18 09/05/18 09/05/18 03:21 03:30 03:47 Temperature 99.1 F Pulse Rate 81 78 Pulse Rate [ From Monitor] Respiratory 18 Rate Blood Pressure 116/61 125/62 O2 Sat by Pulse 100 98 Oximetry 09/05/18 09/05/18 09/05/18 04:00 04:30 05:00 Temperature Pulse Rate 77 91 H 77 Pulse Rate [ 81 From Monitor] Respiratory 15 21 15 Rate Blood Pressure 118/61 132/86 127/56 O2 Sat by Pulse 98 100 99 Oximetry 09/05/18 09/05/18 09/05/18 05:30 06:00 06:30 Temperature Pulse Rate 78 80 79 Pulse Rate [ From Monitor] Respiratory 13 13 14 Rate Blood Pressure 113/54 108/57 111/55 O2 Sat by Pulse 98 98 98 Oximetry 09/05/18 09/05/18 09/05/18 07:00 07:30 08:00 Temperature 97.4 F L Pulse Rate 87 83 77 Pulse Rate [ 73 From Monitor] Respiratory 21 17 17 Rate Blood Pressure 134/57 108/56 116/54 O2 Sat by Pulse 100 100 99 Oximetry 09/05/18 09/05/18 09/05/18 08:30 09:00 09:18 Temperature Pulse Rate 76 76 78 Pulse Rate [ From Monitor] Respiratory 14 20 Rate Blood Pressure 109/55 116/54 109/55 O2 Sat by Pulse 100 100 Oximetry 09/05/18 09/05/18 09/05/18 09:30 09:44 10:00 Temperature Pulse Rate 77 75 77 Pulse Rate [ From Monitor] Respiratory 16 16 15 Rate Blood Pressure 119/56 119/56 119/56 O2 Sat by Pulse 100 100 100 Oximetry 09/05/18 09/05/18 09/05/18 10:30 11:00 11:30 Temperature Pulse Rate 78 72 74 Pulse Rate [ From Monitor] Respiratory 8 L 14 15 Rate Blood Pressure 153/63 124/63 133/71 O2 Sat by Pulse 100 100 99 Oximetry 09/05/18 09/05/18 09/05/18 12:00 12:17 13:30 Temperature 96.6 F L 96.6 F L Pulse Rate 69 71 Pulse Rate [ 69 From Monitor] Respiratory 14 14 Rate Blood Pressure 124/67 135/62 O2 Sat by Pulse 99 100 Oximetry Constitutional: no acute distress, other (Elderly looking AAM, normocephalic r esting in bed on MVS) Eyes: non-icteric ENT: oropharynx moist Neck: supple, no lymphadenopathy, no JVD, other (s/p tracheostomy) Effort: mildly labored Ascultation: Bilateral: diminished breath sounds, rhonchi Percussion: Bilateral: not dull Cardiovascular: regular rate and rhythm Gastrointestinal: normoactive bowel sounds, soft, non-tender, non-distended Integumentary: normal Extremities: no cyanosis, pulses normal, no ischemia or petechiae, edema (trace ) Neurologic: unable to assess, other (slight pupillary constriction to light) Psychiatric: other (unable to assess) CBC and BMP: 09/05/18 04:52 09/05/18 04:52 ABG, PT/INR, D-dimer: ABG POC ABG pH 7.389 (7.35-7.45) 08/31/18 22:25 POC ABG pCO2 45.6 (35-45) H 08/31/18 22:25 POC ABG pO2 135 (80-105) H 08/31/18 22:25 POC ABG HCO3 27.5 (22-26 mml/L) 08/31/18 22:25 POC ABG Total CO2 29 (23-27mmol/L) 08/31/18 22:25 POC ABG O2 Sat 99 08/31/18 22:25 PT/INR, D-dimer PT 16.5 Sec. (12.2-14.9) H 08/13/18 00:47 INR 1.25 (0.87-1.13) H 08/13/18 00:47 2742.50 ng/mlDDU (0-234) H 08/13/18 20:07 Abnormal lab findings: Abnormal Labs 08/12/18 08/12/18 08/12/18 21:44 21:44 21:44 WBC 15.5 H RBC 3.12 L Hgb 8.8 L Hct 28.9 L MCV MCH MCHC 31 L RDW 19.5 H Lymph % (Auto) [place] % (Auto) Eos % (Auto) Lymph # [place] # Eos # Seg Neutrophils % Lymphocytes % (Manual) 48.0 H Seg Neutrophils # Lymphocytes # (Manual) 7.4 H PT 17.8 H INR 1.37 H APTT D-Dimer Heparin Anti-Xa Level POC ABG pH POC ABG pCO2 POC ABG pO2 Sodium 159 H Potassium Chloride 118.5 H Carbon Dioxide BUN 34 H Creatinine Glucose 161 H POC Glucose Lactic Acid Calcium Magnesium AST Alkaline Phosphatase Total Creatine Kinase CK-MB (CK-2) Troponin T 0.105 H* C-Reactive Protein Total Protein Albumin Cholesterol LDL Cholesterol Direct HDL Cholesterol Free T4 Urine WBC (Auto) Urine Creatinine Urine Total Protein Crossmatch 08/13/18 08/13/18 08/13/18 00:32 00:47 00:47 WBC RBC Hgb 9.2 L Hct 29.6 L MCV MCH MCHC RDW Lymph % (Auto) [place] % (Auto) Eos % (Auto) Lymph # [place] # Eos # Seg Neutrophils % Lymphocytes % (Manual) Seg Neutrophils # Lymphocytes # (Manual) PT 16.5 H INR 1.25 H APTT 37.3 H D-Dimer Heparin Anti-Xa Level POC ABG pH POC ABG pCO2 POC ABG pO2 Sodium Potassium Chloride Carbon Dioxide BUN Creatinine Glucose POC Glucose Lactic Acid Calcium Magnesium AST Alkaline Phosphatase Total Creatine Kinase 211 H CK-MB (CK-2) 7.7 H Troponin T 0.169 H* D C-Reactive Protein Total Protein Albumin Cholesterol 46 L LDL Cholesterol Direct 17 L HDL Cholesterol 6 L Free T4 Urine WBC (Auto) Urine Creatinine Urine Total Protein Crossmatch 08/13/18 08/13/18 08/13/18 00:50 02:25 05:34 WBC RBC Hgb Hct MCV MCH MCHC RDW Lymph % (Auto) [place] % (Auto) Eos % (Auto) Lymph # [place] # Eos # Seg Neutrophils % Lymphocytes % (Manual) Seg Neutrophils # Lymphocytes # (Manual) PT INR APTT D-Dimer Heparin Anti-Xa Level POC ABG pH 7.503 H POC ABG pCO2 POC ABG pO2 253 H Sodium Potassium Chloride Carbon Dioxide BUN Creatinine Glucose POC Glucose Lactic Acid Calcium Magnesium AST Alkaline Phosphatase Total Creatine Kinase 311 H CK-MB (CK-2) 10.4 H Troponin T 0.283 H* D C-Reactive Protein Total Protein Albumin Cholesterol LDL Cholesterol Direct HDL Cholesterol Free T4 Urine WBC (Auto) > 182.0 H Urine Creatinine Urine Total Protein Crossmatch 08/13/18 08/13/18 08/13/18 06:35 10:10 10:10 WBC RBC Hgb Hct MCV MCH MCHC RDW Lymph % (Auto) [place] % (Auto) Eos % (Auto) Lymph # [place] # Eos # Seg Neutrophils % Lymphocytes % (Manual) Seg Neutrophils # Lymphocytes # (Manual) PT INR APTT D-Dimer Heparin Anti-Xa Level POC ABG pH 7.554 H POC ABG pCO2 33.5 L POC ABG pO2 220 H Sodium 158 H Potassium Chloride 117.1 H Carbon Dioxide BUN 53 H Creatinine 2.0 H Glucose 247 H POC Glucose Lactic Acid Calcium 8.2 L Magnesium AST Alkaline Phosphatase Total Creatine Kinase 309 H CK-MB (CK-2) 4.1 H Troponin T 0.470 H* D C-Reactive Protein Total Protein Albumin Cholesterol LDL Cholesterol Direct HDL Cholesterol Free T4 Urine WBC (Auto) Urine Creatinine Urine Total Protein Crossmatch 08/13/18 08/13/18 08/13/18 12:53 12:53 17:55 WBC RBC Hgb Hct MCV MCH MCHC RDW Lymph % (Auto) [place] % (Auto) Eos % (Auto) Lymph # [place] # Eos # Seg Neutrophils % Lymphocytes % (Manual) Seg Neutrophils # Lymphocytes # (Manual) PT INR APTT D-Dimer Heparin Anti-Xa Level POC ABG pH POC ABG pCO2 POC ABG pO2 Sodium Potassium Chloride Carbon Dioxide BUN Creatinine Glucose POC Glucose 308 H Lactic Acid 2.80 H* Calcium Magnesium 2.50 H AST Alkaline Phosphatase Total Creatine Kinase CK-MB (CK-2) Troponin T C-Reactive Protein 16.90 H Total Protein Albumin Cholesterol LDL Cholesterol Direct HDL Cholesterol Free T4 Urine WBC (Auto) Urine Creatinine Urine Total Protein Crossmatch 08/13/18 08/13/18 08/13/18 20:07 21:16 23:17 WBC RBC Hgb Hct MCV MCH MCHC RDW Lymph % (Auto) [place] % (Auto) Eos % (Auto) Lymph # [place] # Eos # Seg Neutrophils % Lymphocytes % (Manual) Seg Neutrophils # Lymphocytes # (Manual) PT INR APTT D-Dimer 2742.50 H Heparin Anti-Xa Level POC ABG pH 7.483 H POC ABG pCO2 30.8 L POC ABG pO2 150 H Sodium Potassium Chloride Carbon Dioxide BUN Creatinine Glucose POC Glucose 245 H Lactic Acid Calcium Magnesium AST Alkaline Phosphatase Total Creatine Kinase CK-MB (CK-2) Troponin T C-Reactive Protein Total Protein Albumin Cholesterol LDL Cholesterol Direct HDL Cholesterol Free T4 Urine WBC (Auto) Urine Creatinine Urine Total Protein Crossmatch 08/14/18 08/14/18 08/14/18 04:03 04:03 04:56 WBC 18.2 H RBC 2.62 L Hgb 7.3 L Hct 24.5 L MCV MCH MCHC RDW 18.9 H Lymph % (Auto) [place] % (Auto) Eos % (Auto) Lymph # [place] # 1.2 H Eos # Seg Neutrophils % 79.4 H Lymphocytes % (Manual) Seg Neutrophils # 14.5 H Lymphocytes # (Manual) PT INR APTT D-Dimer Heparin Anti-Xa Level POC ABG pH POC ABG pCO2 33.5 L POC ABG pO2 153 H Sodium 152 H Potassium 3.4 L Chloride 113.8 H Carbon Dioxide BUN 72 H Creatinine 2.7 H Glucose 239 H POC Glucose Lactic Acid Calcium 7.6 L Magnesium AST 50 H Alkaline Phosphatase 219 H Total Creatine Kinase CK-MB (CK-2) Troponin T 0.409 H* C-Reactive Protein Total Protein 6.2 L Albumin 1.9 L Cholesterol LDL Cholesterol Direct HDL Cholesterol Free T4 Urine WBC (Auto) Urine Creatinine Urine Total Protein Crossmatch 08/14/18 08/14/18 08/14/18 05:18 13:38 15:35 WBC RBC Hgb Hct MCV MCH MCHC RDW Lymph % (Auto) [place] % (Auto) Eos % (Auto) Lymph # [place] # Eos # Seg Neutrophils % Lymphocytes % (Manual) Seg Neutrophils # Lymphocytes # (Manual) PT INR APTT D-Dimer Heparin Anti-Xa Level POC ABG pH POC ABG pCO2 POC ABG pO2 Sodium 150 H Potassium 3.2 L Chloride 114.5 H Carbon Dioxide BUN 69 H Creatinine 2.3 H Glucose 247 H POC Glucose 242 H 296 H Lactic Acid Calcium 7.2 L Magnesium AST Alkaline Phosphatase Total Creatine Kinase CK-MB (CK-2) Troponin T C-Reactive Protein Total Protein Albumin Cholesterol LDL Cholesterol Direct HDL Cholesterol Free T4 Urine WBC (Auto) Urine Creatinine Urine Total Protein Crossmatch 05/17/19 05/17/19 05/17/19 17:01 17:20 23:47 WBC RBC Hgb Hct MCV MCH MCHC RDW Lymph % (Auto) [place] % (Auto) Eos % (Auto) Lymph # [place] # Eos # Seg Neutrophils % Lymphocytes % (Manual) Seg Neutrophils # Lymphocytes # (Manual) PT INR APTT D-Dimer Heparin Anti-Xa Level POC ABG pH POC ABG pCO2 POC ABG pO2 Sodium Potassium Chloride Carbon Dioxide BUN Creatinine Glucose POC Glucose 261 H 280 H Lactic Acid Calcium Magnesium AST Alkaline Phosphatase Total Creatine Kinase CK-MB (CK-2) Troponin T C-Reactive Protein Total Protein Albumin Cholesterol LDL Cholesterol Direct HDL Cholesterol Free T4 Urine WBC (Auto) Urine Creatinine 60.9 H Urine Total Protein 64 H Crossmatch 08/15/18 08/15/18 08/15/18 04:05 04:05 04:05 WBC RBC Hgb 6.3 L Hct 19.7 L* MCV MCH MCHC RDW Lymph % (Auto) [place] % (Auto) Eos % (Auto) Lymph # [place] # Eos # Seg Neutrophils % Lymphocytes % (Manual) Seg Neutrophils # Lymphocytes # (Manual) PT INR APTT D-Dimer Heparin Anti-Xa Level 0.17 L POC ABG pH POC ABG pCO2 POC ABG pO2 Sodium 146 H Potassium 3.0 L Chloride 110.6 H Carbon Dioxide BUN 64 H Creatinine 2.2 H Glucose 231 H POC Glucose Lactic Acid Calcium 7.1 L Magnesium AST Alkaline Phosphatase Total Creatine Kinase CK-MB (CK-2) Troponin T C-Reactive Protein Total Protein Albumin Cholesterol LDL Cholesterol Direct HDL Cholesterol Free T4 Urine WBC (Auto) Urine Creatinine Urine Total Protein Crossmatch 08/15/18 08/15/18 08/15/18 05:21 05:26 06:35 WBC RBC Hgb Hct MCV MCH MCHC RDW Lymph % (Auto) [place] % (Auto) Eos % (Auto) Lymph # [place] # Eos # Seg Neutrophils % Lymphocytes % (Manual) Seg Neutrophils # Lymphocytes # (Manual) PT INR APTT 79.0 H* D-Dimer Heparin Anti-Xa Level POC ABG pH 7.494 H POC ABG pCO2 POC ABG pO2 155 H Sodium Potassium Chloride Carbon Dioxide BUN Creatinine Glucose POC Glucose 271 H Lactic Acid Calcium Magnesium AST Alkaline Phosphatase Total Creatine Kinase CK-MB (CK-2) Troponin T C-Reactive Protein Total Protein Albumin Cholesterol LDL Cholesterol Direct HDL Cholesterol Free T4 Urine WBC (Auto) Urine Creatinine Urine Total Protein Crossmatch 08/15/18 08/15/18 08/15/18 12:10 15:31 17:27 WBC RBC Hgb Hct MCV MCH MCHC RDW Lymph % (Auto) [place] % (Auto) Eos % (Auto) Lymph # [place] # Eos # Seg Neutrophils % Lymphocytes % (Manual) Seg Neutrophils # Lymphocytes # (Manual) PT INR APTT D-Dimer Heparin Anti-Xa Level POC ABG pH POC ABG pCO2 POC ABG pO2 Sodium Potassium Chloride Carbon Dioxide BUN Creatinine Glucose POC Glucose 301 H 287 H Lactic Acid Calcium Magnesium AST Alkaline Phosphatase Total Creatine Kinase CK-MB (CK-2) Troponin T C-Reactive Protein Total Protein Albumin Cholesterol LDL Cholesterol Direct HDL Cholesterol Free T4 Urine WBC (Auto) Urine Creatinine Urine Total Protein Crossmatch See Detail 08/15/18 08/15/18 08/16/18 21:41 23:45 04:13 WBC RBC Hgb Hct MCV MCH MCHC RDW Lymph % (Auto) [place] % (Auto) Eos % (Auto) Lymph # [place] # Eos # Seg Neutrophils % Lymphocytes % (Manual) Seg Neutrophils # Lymphocytes # (Manual) PT INR APTT D-Dimer Heparin Anti-Xa Level 0.19 L POC ABG pH POC ABG pCO2 32.1 L POC ABG pO2 107 H Sodium Potassium Chloride Carbon Dioxide BUN Creatinine Glucose POC Glucose 163 H Lactic Acid Calcium Magnesium AST Alkaline Phosphatase Total Creatine Kinase CK-MB (CK-2) Troponin T C-Reactive Protein Total Protein Albumin Cholesterol LDL Cholesterol Direct HDL Cholesterol Free T4 Urine WBC (Auto) Urine Creatinine Urine Total Protein Crossmatch 08/16/18 08/16/18 08/16/18 04:50 05:28 11:30 WBC RBC 2.67 L Hgb 8.1 L Hct 23.4 L MCV MCH MCHC 35 H RDW 18.3 H Lymph % (Auto) [place] % (Auto) Eos % (Auto) Lymph # [place] # Eos # Seg Neutrophils % Lymphocytes % (Manual) Seg Neutrophils # Lymphocytes # (Manual) PT INR APTT D-Dimer Heparin Anti-Xa Level 0.19 L POC ABG pH POC ABG pCO2 POC ABG pO2 Sodium Potassium Chloride Carbon Dioxide BUN Creatinine Glucose POC Glucose 141 H Lactic Acid Calcium Magnesium AST Alkaline Phosphatase Total Creatine Kinase CK-MB (CK-2) Troponin T C-Reactive Protein Total Protein Albumin Cholesterol LDL Cholesterol Direct HDL Cholesterol Free T4 Urine WBC (Auto) Urine Creatinine Urine Total Protein Crossmatch 08/16/18 08/16/18 08/16/18 11:30 12:00 12:01 WBC RBC Hgb Hct MCV MCH MCHC RDW Lymph % (Auto) [place] % (Auto) Eos % (Auto) Lymph # [place] # Eos # Seg Neutrophils % Lymphocytes % (Manual) Seg Neutrophils # Lymphocytes # (Manual) PT INR APTT D-Dimer Heparin Anti-Xa Level 0.15 L POC ABG pH POC ABG pCO2 POC ABG pO2 Sodium Potassium Chloride 107.8 H Carbon Dioxide 21 L BUN 47 H Creatinine 1.6 H Glucose 221 H POC Glucose 267 H Lactic Acid Calcium 6.9 L Magnesium AST Alkaline Phosphatase Total Creatine Kinase CK-MB (CK-2) Troponin T C-Reactive Protein Total Protein Albumin Cholesterol LDL Cholesterol Direct HDL Cholesterol Free T4 Urine WBC (Auto) Urine Creatinine Urine Total Protein Crossmatch 08/16/18 08/16/18 08/16/18 17:23 20:01 23:13 WBC RBC Hgb Hct MCV MCH MCHC RDW Lymph % (Auto) [place] % (Auto) Eos % (Auto) Lymph # [place] # Eos # Seg Neutrophils % Lymphocytes % (Manual) Seg Neutrophils # Lymphocytes # (Manual) PT INR APTT D-Dimer Heparin Anti-Xa Level 0.26 L POC ABG pH POC ABG pCO2 POC ABG pO2 Sodium Potassium Chloride Carbon Dioxide BUN Creatinine Glucose POC Glucose 245 H 256 H Lactic Acid Calcium Magnesium AST Alkaline Phosphatase Total Creatine Kinase CK-MB (CK-2) Troponin T C-Reactive Protein Total Protein Albumin Cholesterol LDL Cholesterol Direct HDL Cholesterol Free T4 Urine WBC (Auto) Urine Creatinine Urine Total Protein Crossmatch 08/17/18 08/17/18 08/17/18 04:29 04:55 05:34 WBC RBC Hgb 8.2 L Hct 24.3 L MCV MCH MCHC RDW Lymph % (Auto) [place] % (Auto) Eos % (Auto) Lymph # [place] # Eos # Seg Neutrophils % Lymphocytes % (Manual) Seg Neutrophils # Lymphocytes # (Manual) PT INR APTT D-Dimer Heparin Anti-Xa Level POC ABG pH POC ABG pCO2 32.4 L POC ABG pO2 108 H Sodium Potassium Chloride Carbon Dioxide BUN Creatinine Glucose POC Glucose 268 H Lactic Acid Calcium Magnesium AST Alkaline Phosphatase Total Creatine Kinase CK-MB (CK-2) Troponin T C-Reactive Protein Total Protein Albumin Cholesterol LDL Cholesterol Direct HDL Cholesterol Free T4 Urine WBC (Auto) Urine Creatinine Urine Total Protein Crossmatch 08/17/18 08/17/18 08/17/18 11:54 13:44 17:24 WBC RBC Hgb Hct MCV MCH MCHC RDW Lymph % (Auto) [place] % (Auto) Eos % (Auto) Lymph # [place] # Eos # Seg Neutrophils % Lymphocytes % (Manual) Seg Neutrophils # Lymphocytes # (Manual) PT INR APTT D-Dimer Heparin Anti-Xa Level POC ABG pH POC ABG pCO2 32.7 L POC ABG pO2 142 H Sodium Potassium Chloride Carbon Dioxide BUN Creatinine Glucose POC Glucose 295 H 283 H Lactic Acid Calcium Magnesium AST Alkaline Phosphatase Total Creatine Kinase CK-MB (CK-2) Troponin T C-Reactive Protein Total Protein Albumin Cholesterol LDL Cholesterol Direct HDL Cholesterol Free T4 Urine WBC (Auto) Urine Creatinine Urine Total Protein Crossmatch 08/18/18 08/18/18 08/18/18 00:05 00:59 04:15 WBC RBC Hgb Hct MCV MCH MCHC RDW Lymph % (Auto) [place] % (Auto) Eos % (Auto) Lymph # [place] # Eos # Seg Neutrophils % Lymphocytes % (Manual) Seg Neutrophils # Lymphocytes # (Manual) PT INR APTT D-Dimer Heparin Anti-Xa Level POC ABG pH POC ABG pCO2 POC ABG pO2 115 H Sodium Potassium Chloride Carbon Dioxide BUN Creatinine Glucose POC Glucose 247 H 251 H Lactic Acid Calcium Magnesium AST Alkaline Phosphatase Total Creatine Kinase CK-MB (CK-2) Troponin T C-Reactive Protein Total Protein Albumin Cholesterol LDL Cholesterol Direct HDL Cholesterol Free T4 Urine WBC (Auto) Urine Creatinine Urine Total Protein Crossmatch 08/18/18 08/18/18 08/18/18 05:02 12:20 17:51 WBC RBC Hgb Hct MCV MCH MCHC RDW Lymph % (Auto) [place] % (Auto) Eos % (Auto) Lymph # [place] # Eos # Seg Neutrophils % Lymphocytes % (Manual) Seg Neutrophils # Lymphocytes # (Manual) PT INR APTT D-Dimer Heparin Anti-Xa Level POC ABG pH POC ABG pCO2 POC ABG pO2 Sodium Potassium Chloride Carbon Dioxide BUN Creatinine Glucose POC Glucose 282 H 209 H 261 H Lactic Acid Calcium Magnesium AST Alkaline Phosphatase Total Creatine Kinase CK-MB (CK-2) Troponin T C-Reactive Protein Total Protein Albumin Cholesterol LDL Cholesterol Direct HDL Cholesterol Free T4 Urine WBC (Auto) Urine Creatinine Urine Total Protein Crossmatch 08/18/18 08/19/18 08/19/18 23:30 04:54 05:16 WBC RBC 2.62 L Hgb 7.5 L Hct 23.1 L MCV MCH MCHC RDW 18.1 H Lymph % (Auto) [place] % (Auto) Eos % (Auto) Lymph # [place] # Eos # Seg Neutrophils % Lymphocytes % (Manual) Seg Neutrophils # Lymphocytes # (Manual) PT INR APTT D-Dimer Heparin Anti-Xa Level POC ABG pH POC ABG pCO2 POC ABG pO2 58 L Sodium Potassium Chloride Carbon Dioxide BUN Creatinine Glucose POC Glucose 231 H Lactic Acid Calcium Magnesium AST Alkaline Phosphatase Total Creatine Kinase CK-MB (CK-2) Troponin T C-Reactive Protein Total Protein Albumin Cholesterol LDL Cholesterol Direct HDL Cholesterol Free T4 Urine WBC (Auto) Urine Creatinine Urine Total Protein Crossmatch 08/19/18 08/19/18 08/19/18 05:16 05:40 11:56 WBC RBC Hgb Hct MCV MCH MCHC RDW Lymph % (Auto) [place] % (Auto) Eos % (Auto) Lymph # [place] # Eos # Seg Neutrophils % Lymphocytes % (Manual) Seg Neutrophils # Lymphocytes # (Manual) PT INR APTT D-Dimer Heparin Anti-Xa Level POC ABG pH POC ABG pCO2 POC ABG pO2 Sodium 152 H D Potassium Chloride 118.7 H Carbon Dioxide BUN 38 H Creatinine Glucose 220 H POC Glucose 227 H 213 H Lactic Acid Calcium 8.1 L D Magnesium AST Alkaline Phosphatase Total Creatine Kinase CK-MB (CK-2) Troponin T C-Reactive Protein Total Protein Albumin Cholesterol LDL Cholesterol Direct HDL Cholesterol Free T4 Urine WBC (Auto) Urine Creatinine Urine Total Protein Crossmatch 08/19/18 08/19/18 08/20/18 18:37 23:32 04:38 WBC RBC Hgb Hct MCV MCH MCHC RDW Lymph % (Auto) [place] % (Auto) Eos % (Auto) Lymph # [place] # Eos # Seg Neutrophils % Lymphocytes % (Manual) Seg Neutrophils # Lymphocytes # (Manual) PT INR APTT D-Dimer Heparin Anti-Xa Level POC ABG pH POC ABG pCO2 POC ABG pO2 140 H Sodium Potassium Chloride Carbon Dioxide BUN Creatinine Glucose POC Glucose 227 H 245 H Lactic Acid Calcium Magnesium AST Alkaline Phosphatase Total Creatine Kinase CK-MB (CK-2) Troponin T C-Reactive Protein Total Protein Albumin Cholesterol LDL Cholesterol Direct HDL Cholesterol Free T4 Urine WBC (Auto) Urine Creatinine Urine Total Protein Crossmatch 08/20/18 08/20/18 08/20/18 05:31 05:37 05:37 WBC RBC 2.60 L Hgb 7.5 L Hct 22.9 L MCV MCH MCHC RDW 18.4 H Lymph % (Auto) [place] % (Auto) Eos % (Auto) Lymph # [place] # Eos # Seg Neutrophils % Lymphocytes % (Manual) Seg Neutrophils # Lymphocytes # (Manual) PT INR APTT D-Dimer Heparin Anti-Xa Level POC ABG pH POC ABG pCO2 POC ABG pO2 Sodium 150 H Potassium Chloride 115.6 H Carbon Dioxide BUN 38 H Creatinine Glucose 276 H POC Glucose 266 H Lactic Acid Calcium 7.9 L Magnesium AST Alkaline Phosphatase Total Creatine Kinase CK-MB (CK-2) Troponin T C-Reactive Protein Total Protein Albumin Cholesterol LDL Cholesterol Direct HDL Cholesterol Free T4 Urine WBC (Auto) Urine Creatinine Urine Total Protein Crossmatch 08/20/18 08/20/18 08/20/18 14:01 18:20 23:11 WBC RBC Hgb Hct MCV MCH MCHC RDW Lymph % (Auto) [place] % (Auto) Eos % (Auto) Lymph # [place] # Eos # Seg Neutrophils % Lymphocytes % (Manual) Seg Neutrophils # Lymphocytes # (Manual) PT INR APTT D-Dimer Heparin Anti-Xa Level POC ABG pH POC ABG pCO2 POC ABG pO2 Sodium Potassium Chloride Carbon Dioxide BUN Creatinine Glucose POC Glucose 305 H 271 H 218 H Lactic Acid Calcium Magnesium AST Alkaline Phosphatase Total Creatine Kinase CK-MB (CK-2) Troponin T C-Reactive Protein Total Protein Albumin Cholesterol LDL Cholesterol Direct HDL Cholesterol Free T4 Urine WBC (Auto) Urine Creatinine Urine Total Protein Crossmatch 08/21/18 08/21/18 08/21/18 04:41 04:41 06:20 WBC RBC 2.65 L Hgb 7.6 L Hct 23.3 L MCV MCH MCHC RDW 19.1 H Lymph % (Auto) [place] % (Auto) Eos % (Auto) Lymph # [place] # Eos # Seg Neutrophils % Lymphocytes % (Manual) Seg Neutrophils # Lymphocytes # (Manual) PT INR APTT D-Dimer Heparin Anti-Xa Level POC ABG pH POC ABG pCO2 POC ABG pO2 Sodium 150 H Potassium Chloride 117.8 H Carbon Dioxide BUN 37 H Creatinine Glucose 233 H POC Glucose 262 H Lactic Acid Calcium 7.9 L Magnesium AST Alkaline Phosphatase Total Creatine Kinase CK-MB (CK-2) Troponin T C-Reactive Protein Total Protein Albumin Cholesterol LDL Cholesterol Direct HDL Cholesterol Free T4 Urine WBC (Auto) Urine Creatinine Urine Total Protein Crossmatch 08/21/18 08/21/18 08/21/18 10:18 12:04 12:36 WBC RBC Hgb Hct MCV MCH MCHC RDW Lymph % (Auto) [place] % (Auto) Eos % (Auto) Lymph # [place] # Eos # Seg Neutrophils % Lymphocytes % (Manual) Seg Neutrophils # Lymphocytes # (Manual) PT INR APTT D-Dimer Heparin Anti-Xa Level POC ABG pH POC ABG pCO2 POC ABG pO2 Sodium Potassium Chloride Carbon Dioxide BUN Creatinine Glucose POC Glucose 256 H 245 H 255 H Lactic Acid Calcium Magnesium AST Alkaline Phosphatase Total Creatine Kinase CK-MB (CK-2) Troponin T C-Reactive Protein Total Protein Albumin Cholesterol LDL Cholesterol Direct HDL Cholesterol Free T4 Urine WBC (Auto) Urine Creatinine Urine Total Protein Crossmatch 08/21/18 08/21/18 08/22/18 17:36 23:29 05:01 WBC RBC Hgb Hct MCV MCH MCHC RDW Lymph % (Auto) [place] % (Auto) Eos % (Auto) Lymph # [place] # Eos # Seg Neutrophils % Lymphocytes % (Manual) Seg Neutrophils # Lymphocytes # (Manual) PT INR APTT D-Dimer Heparin Anti-Xa Level POC ABG pH 7.466 H POC ABG pCO2 33.8 L POC ABG pO2 111 H Sodium Potassium Chloride Carbon Dioxide BUN Creatinine Glucose POC Glucose 263 H 268 H Lactic Acid Calcium Magnesium AST Alkaline Phosphatase Total Creatine Kinase CK-MB (CK-2) Troponin T C-Reactive Protein Total Protein Albumin Cholesterol LDL Cholesterol Direct HDL Cholesterol Free T4 Urine WBC (Auto) Urine Creatinine Urine Total Protein Crossmatch 08/22/18 08/22/18 08/22/18 05:05 12:05 12:15 WBC RBC Hgb Hct MCV MCH MCHC RDW Lymph % (Auto) [place] % (Auto) Eos % (Auto) Lymph # [place] # Eos # Seg Neutrophils % Lymphocytes % (Manual) Seg Neutrophils # Lymphocytes # (Manual) PT INR APTT D-Dimer Heparin Anti-Xa Level POC ABG pH POC ABG pCO2 POC ABG pO2 Sodium 147 H Potassium Chloride 113.2 H Carbon Dioxide BUN 36 H Creatinine Glucose 249 H POC Glucose 256 H 228 H Lactic Acid Calcium 8.2 L Magnesium AST Alkaline Phosphatase Total Creatine Kinase CK-MB (CK-2) Troponin T C-Reactive Protein Total Protein Albumin Cholesterol LDL Cholesterol Direct HDL Cholesterol Free T4 Urine WBC (Auto) Urine Creatinine Urine Total Protein Crossmatch 08/22/18 08/23/18 08/23/18 17:30 00:03 05:05 WBC RBC Hgb Hct MCV MCH MCHC RDW Lymph % (Auto) [place] % (Auto) Eos % (Auto) Lymph # [place] # Eos # Seg Neutrophils % Lymphocytes % (Manual) Seg Neutrophils # Lymphocytes # (Manual) PT INR APTT D-Dimer Heparin Anti-Xa Level POC ABG pH POC ABG pCO2 POC ABG pO2 Sodium Potassium Chloride Carbon Dioxide BUN Creatinine Glucose POC Glucose 291 H 259 H 247 H Lactic Acid Calcium Magnesium AST Alkaline Phosphatase Total Creatine Kinase CK-MB (CK-2) Troponin T C-Reactive Protein Total Protein Albumin Cholesterol LDL Cholesterol Direct HDL Cholesterol Free T4 Urine WBC (Auto) Urine Creatinine Urine Total Protein Crossmatch 08/23/18 08/23/18 08/23/18 05:14 12:29 17:21 WBC RBC Hgb Hct MCV MCH MCHC RDW Lymph % (Auto) [place] % (Auto) Eos % (Auto) Lymph # [place] # Eos # Seg Neutrophils % Lymphocytes % (Manual) Seg Neutrophils # Lymphocytes # (Manual) PT INR APTT D-Dimer Heparin Anti-Xa Level POC ABG pH POC ABG pCO2 POC ABG pO2 Sodium Potassium Chloride Carbon Dioxide BUN Creatinine Glucose POC Glucose 208 H 138 H 175 H Lactic Acid Calcium Magnesium AST Alkaline Phosphatase Total Creatine Kinase CK-MB (CK-2) Troponin T C-Reactive Protein Total Protein Albumin Cholesterol LDL Cholesterol Direct HDL Cholesterol Free T4 Urine WBC (Auto) Urine Creatinine Urine Total Protein Crossmatch 08/23/18 08/24/18 08/24/18 23:36 01:00 05:50 WBC RBC 2.92 L 2.90 L Hgb 8.3 L 8.2 L Hct 25.4 L 25.2 L MCV MCH MCHC RDW 18.9 H 18.6 H Lymph % (Auto) [place] % (Auto) 9.2 H Eos % (Auto) Lymph # [place] # Eos # Seg Neutrophils % Lymphocytes % (Manual) Seg Neutrophils # Lymphocytes # (Manual) PT INR APTT D-Dimer Heparin Anti-Xa Level POC ABG pH POC ABG pCO2 POC ABG pO2 Sodium Potassium Chloride Carbon Dioxide BUN Creatinine Glucose POC Glucose 163 H Lactic Acid Calcium Magnesium AST Alkaline Phosphatase Total Creatine Kinase CK-MB (CK-2) Troponin T C-Reactive Protein Total Protein Albumin Cholesterol LDL Cholesterol Direct HDL Cholesterol Free T4 Urine WBC (Auto) Urine Creatinine Urine Total Protein Crossmatch 08/24/18 08/24/18 08/24/18 05:50 12:26 18:37 WBC RBC Hgb Hct MCV MCH MCHC RDW Lymph % (Auto) [place] % (Auto) Eos % (Auto) Lymph # [place] # Eos # Seg Neutrophils % Lymphocytes % (Manual) Seg Neutrophils # Lymphocytes # (Manual) PT INR APTT D-Dimer Heparin Anti-Xa Level POC ABG pH POC ABG pCO2 POC ABG pO2 Sodium 147 H Potassium Chloride 113.6 H Carbon Dioxide BUN 33 H Creatinine Glucose 210 H POC Glucose 223 H 166 H Lactic Acid Calcium 8.3 L Magnesium AST Alkaline Phosphatase Total Creatine Kinase CK-MB (CK-2) Troponin T C-Reactive Protein Total Protein Albumin Cholesterol LDL Cholesterol Direct HDL Cholesterol Free T4 Urine WBC (Auto) Urine Creatinine Urine Total Protein Crossmatch 08/24/18 08/25/18 08/25/18 23:47 04:55 04:55 WBC RBC 2.94 L Hgb 8.4 L Hct 25.1 L MCV MCH MCHC RDW 18.2 H Lymph % (Auto) [place] % (Auto) Eos % (Auto) Lymph # [place] # Eos # Seg Neutrophils % Lymphocytes % (Manual) Seg Neutrophils # Lymphocytes # (Manual) PT INR APTT D-Dimer Heparin Anti-Xa Level POC ABG pH POC ABG pCO2 POC ABG pO2 Sodium Potassium Chloride 110.2 H Carbon Dioxide BUN 30 H Creatinine Glucose POC Glucose 126 H Lactic Acid Calcium 8.1 L Magnesium AST Alkaline Phosphatase Total Creatine Kinase CK-MB (CK-2) Troponin T C-Reactive Protein Total Protein Albumin Cholesterol LDL Cholesterol Direct HDL Cholesterol Free T4 Urine WBC (Auto) Urine Creatinine Urine Total Protein Crossmatch 08/25/18 08/26/18 08/26/18 12:40 04:39 04:39 WBC RBC 2.96 L Hgb 8.3 L Hct 25.7 L MCV MCH MCHC RDW 18.2 H Lymph % (Auto) 10.5 L [place] % (Auto) 9.3 H Eos % (Auto) Lymph # 0.8 L [place] # Eos # Seg Neutrophils % 77.0 H Lymphocytes % (Manual) Seg Neutrophils # Lymphocytes # (Manual) PT INR APTT D-Dimer Heparin Anti-Xa Level POC ABG pH POC ABG pCO2 POC ABG pO2 Sodium 147 H Potassium Chloride 113.5 H Carbon Dioxide BUN 27 H Creatinine 0.7 L Glucose 106 H POC Glucose Lactic Acid Calcium 8.0 L Magnesium AST Alkaline Phosphatase Total Creatine Kinase CK-MB (CK-2) Troponin T C-Reactive Protein Total Protein Albumin Cholesterol LDL Cholesterol Direct HDL Cholesterol Free T4 Urine WBC (Auto) > 182.0 H Urine Creatinine Urine Total Protein Crossmatch 08/26/18 08/26/18 08/26/18 05:27 09:00 09:54 WBC RBC Hgb Hct MCV MCH MCHC RDW Lymph % (Auto) [place] % (Auto) Eos % (Auto) Lymph # [place] # Eos # Seg Neutrophils % Lymphocytes % (Manual) Seg Neutrophils # Lymphocytes # (Manual) PT INR APTT D-Dimer Heparin Anti-Xa Level POC ABG pH POC ABG pCO2 POC ABG pO2 Sodium Potassium Chloride Carbon Dioxide BUN Creatinine Glucose POC Glucose 120 H 170 H Lactic Acid Calcium Magnesium AST Alkaline Phosphatase Total Creatine Kinase CK-MB (CK-2) Troponin T C-Reactive Protein Total Protein Albumin Cholesterol LDL Cholesterol Direct HDL Cholesterol Free T4 0.51 L Urine WBC (Auto) Urine Creatinine Urine Total Protein Crossmatch 08/26/18 08/26/18 08/27/18 14:52 17:50 06:30 WBC RBC Hgb Hct MCV MCH MCHC RDW Lymph % (Auto) [place] % (Auto) Eos % (Auto) Lymph # [place] # Eos # Seg Neutrophils % Lymphocytes % (Manual) Seg Neutrophils # Lymphocytes # (Manual) PT INR APTT D-Dimer Heparin Anti-Xa Level POC ABG pH POC ABG pCO2 POC ABG pO2 Sodium 150 H Potassium Chloride 114.8 H Carbon Dioxide BUN 24 H Creatinine 0.7 L Glucose 131 H POC Glucose 166 H 107 H Lactic Acid Calcium 7.8 L Magnesium AST Alkaline Phosphatase Total Creatine Kinase CK-MB (CK-2) Troponin T C-Reactive Protein Total Protein Albumin Cholesterol LDL Cholesterol Direct HDL Cholesterol Free T4 Urine WBC (Auto) Urine Creatinine Urine Total Protein Crossmatch 08/27/18 08/27/18 08/27/18 08:22 14:20 16:06 WBC RBC Hgb Hct MCV MCH MCHC RDW Lymph % (Auto) [place] % (Auto) Eos % (Auto) Lymph # [place] # Eos # Seg Neutrophils % Lymphocytes % (Manual) Seg Neutrophils # Lymphocytes # (Manual) PT INR APTT D-Dimer Heparin Anti-Xa Level POC ABG pH POC ABG pCO2 POC ABG pO2 Sodium Potassium Chloride Carbon Dioxide BUN Creatinine Glucose POC Glucose 112 H 151 H 158 H Lactic Acid Calcium Magnesium AST Alkaline Phosphatase Total Creatine Kinase CK-MB (CK-2) Troponin T C-Reactive Protein Total Protein Albumin Cholesterol LDL Cholesterol Direct HDL Cholesterol Free T4 Urine WBC (Auto) Urine Creatinine Urine Total Protein Crossmatch 08/27/18 08/27/18 08/28/18 20:09 21:25 02:03 WBC RBC Hgb Hct MCV MCH MCHC RDW Lymph % (Auto) [place] % (Auto) Eos % (Auto) Lymph # [place] # Eos # Seg Neutrophils % Lymphocytes % (Manual) Seg Neutrophils # Lymphocytes # (Manual) PT INR APTT D-Dimer Heparin Anti-Xa Level POC ABG pH POC ABG pCO2 POC ABG pO2 130 H Sodium Potassium Chloride Carbon Dioxide BUN Creatinine Glucose POC Glucose 226 H 250 H Lactic Acid Calcium Magnesium AST Alkaline Phosphatase Total Creatine Kinase CK-MB (CK-2) Troponin T C-Reactive Protein Total Protein Albumin Cholesterol LDL Cholesterol Direct HDL Cholesterol Free T4 Urine WBC (Auto) Urine Creatinine Urine Total Protein Crossmatch 08/28/18 08/28/18 08/28/18 05:56 07:15 13:17 WBC RBC Hgb Hct MCV MCH MCHC RDW Lymph % (Auto) [place] % (Auto) Eos % (Auto) Lymph # [place] # Eos # Seg Neutrophils % Lymphocytes % (Manual) Seg Neutrophils # Lymphocytes # (Manual) PT INR APTT D-Dimer Heparin Anti-Xa Level POC ABG pH POC ABG pCO2 POC ABG pO2 Sodium Potassium Chloride Carbon Dioxide BUN Creatinine Glucose 198 H POC Glucose 221 H 188 H Lactic Acid Calcium 7.7 L Magnesium AST Alkaline Phosphatase Total Creatine Kinase CK-MB (CK-2) Troponin T C-Reactive Protein Total Protein Albumin Cholesterol LDL Cholesterol Direct HDL Cholesterol Free T4 Urine WBC (Auto) Urine Creatinine Urine Total Protein Crossmatch 08/28/18 08/28/18 08/28/18 15:53 18:12 22:35 WBC RBC Hgb Hct MCV MCH MCHC RDW Lymph % (Auto) [place] % (Auto) Eos % (Auto) Lymph # [place] # Eos # Seg Neutrophils % Lymphocytes % (Manual) Seg Neutrophils # Lymphocytes # (Manual) PT INR APTT D-Dimer Heparin Anti-Xa Level POC ABG pH 7.457 H POC ABG pCO2 POC ABG pO2 Sodium Potassium Chloride Carbon Dioxide BUN Creatinine Glucose POC Glucose 197 H 225 H Lactic Acid Calcium Magnesium AST Alkaline Phosphatase Total Creatine Kinase CK-MB (CK-2) Troponin T C-Reactive Protein Total Protein Albumin Cholesterol LDL Cholesterol Direct HDL Cholesterol Free T4 Urine WBC (Auto) Urine Creatinine Urine Total Protein Crossmatch 08/29/18 08/29/18 08/29/18 03:04 10:47 14:25 WBC RBC Hgb Hct MCV MCH MCHC RDW Lymph % (Auto) [place] % (Auto) Eos % (Auto) Lymph # [place] # Eos # Seg Neutrophils % Lymphocytes % (Manual) Seg Neutrophils # Lymphocytes # (Manual) PT INR APTT D-Dimer Heparin Anti-Xa Level POC ABG pH POC ABG pCO2 POC ABG pO2 Sodium Potassium Chloride Carbon Dioxide BUN Creatinine Glucose POC Glucose 223 H 371 H 266 H Lactic Acid Calcium Magnesium AST Alkaline Phosphatase Total Creatine Kinase CK-MB (CK-2) Troponin T C-Reactive Protein Total Protein Albumin Cholesterol LDL Cholesterol Direct HDL Cholesterol Free T4 Urine WBC (Auto) Urine Creatinine Urine Total Protein Crossmatch 08/29/18 08/29/18 08/29/18 16:45 17:36 21:33 WBC RBC Hgb Hct MCV MCH MCHC RDW Lymph % (Auto) [place] % (Auto) Eos % (Auto) Lymph # [place] # Eos # Seg Neutrophils % Lymphocytes % (Manual) Seg Neutrophils # Lymphocytes # (Manual) PT INR APTT D-Dimer Heparin Anti-Xa Level POC ABG pH POC ABG pCO2 POC ABG pO2 118 H Sodium Potassium Chloride Carbon Dioxide BUN Creatinine Glucose POC Glucose 253 H 204 H Lactic Acid Calcium Magnesium AST Alkaline Phosphatase Total Creatine Kinase CK-MB (CK-2) Troponin T C-Reactive Protein Total Protein Albumin Cholesterol LDL Cholesterol Direct HDL Cholesterol Free T4 Urine WBC (Auto) Urine Creatinine Urine Total Protein Crossmatch 08/30/18 08/30/18 08/30/18 01:33 05:27 05:40 WBC RBC 3.12 L Hgb 8.5 L Hct 25.9 L MCV 83 L MCH 27 L MCHC RDW 18.3 H Lymph % (Auto) [place] % (Auto) 7.8 H Eos % (Auto) 8.8 H Lymph # [place] # Eos # 0.6 H Seg Neutrophils % Lymphocytes % (Manual) Seg Neutrophils # Lymphocytes # (Manual) PT INR APTT D-Dimer Heparin Anti-Xa Level POC ABG pH POC ABG pCO2 POC ABG pO2 Sodium Potassium Chloride Carbon Dioxide BUN Creatinine Glucose POC Glucose 157 H 178 H Lactic Acid Calcium Magnesium AST Alkaline Phosphatase Total Creatine Kinase CK-MB (CK-2) Troponin T C-Reactive Protein Total Protein Albumin Cholesterol LDL Cholesterol Direct HDL Cholesterol Free T4 Urine WBC (Auto) Urine Creatinine Urine Total Protein Crossmatch 08/30/18 08/30/18 08/30/18 05:40 09:28 11:41 WBC RBC Hgb Hct MCV MCH MCHC RDW Lymph % (Auto) [place] % (Auto) Eos % (Auto) Lymph # [place] # Eos # Seg Neutrophils % Lymphocytes % (Manual) Seg Neutrophils # Lymphocytes # (Manual) PT INR APTT D-Dimer Heparin Anti-Xa Level POC ABG pH POC ABG pCO2 POC ABG pO2 Sodium Potassium Chloride Carbon Dioxide BUN Creatinine 0.7 L Glucose 189 H POC Glucose 216 H 257 H Lactic Acid Calcium 8.2 L Magnesium AST 50 H Alkaline Phosphatase 158 H Total Creatine Kinase CK-MB (CK-2) Troponin T C-Reactive Protein Total Protein Albumin 1.6 L Cholesterol LDL Cholesterol Direct HDL Cholesterol Free T4 Urine WBC (Auto) Urine Creatinine Urine Total Protein Crossmatch 08/30/18 08/30/18 08/30/18 14:34 17:07 21:56 WBC RBC Hgb Hct MCV MCH MCHC RDW Lymph % (Auto) [place] % (Auto) Eos % (Auto) Lymph # [place] # Eos # Seg Neutrophils % Lymphocytes % (Manual) Seg Neutrophils # Lymphocytes # (Manual) PT INR APTT D-Dimer Heparin Anti-Xa Level POC ABG pH POC ABG pCO2 POC ABG pO2 Sodium Potassium Chloride Carbon Dioxide BUN Creatinine Glucose POC Glucose 263 H 263 H 234 H Lactic Acid Calcium Magnesium AST Alkaline Phosphatase Total Creatine Kinase CK-MB (CK-2) Troponin T C-Reactive Protein Total Protein Albumin Cholesterol LDL Cholesterol Direct HDL Cholesterol Free T4 Urine WBC (Auto) Urine Creatinine Urine Total Protein Crossmatch 08/31/18 08/31/18 08/31/18 02:02 05:29 09:24 WBC RBC Hgb Hct MCV MCH MCHC RDW Lymph % (Auto) [place] % (Auto) Eos % (Auto) Lymph # [place] # Eos # Seg Neutrophils % Lymphocytes % (Manual) Seg Neutrophils # Lymphocytes # (Manual) PT INR APTT D-Dimer Heparin Anti-Xa Level POC ABG pH POC ABG pCO2 POC ABG pO2 Sodium Potassium Chloride Carbon Dioxide BUN Creatinine Glucose POC Glucose 151 H 156 H 107 H Lactic Acid Calcium Magnesium AST Alkaline Phosphatase Total Creatine Kinase CK-MB (CK-2) Troponin T C-Reactive Protein Total Protein Albumin Cholesterol LDL Cholesterol Direct HDL Cholesterol Free T4 Urine WBC (Auto) Urine Creatinine Urine Total Protein Crossmatch 08/31/18 08/31/18 08/31/18 13:51 17:28 21:40 WBC RBC Hgb Hct MCV MCH MCHC RDW Lymph % (Auto) [place] % (Auto) Eos % (Auto) Lymph # [place] # Eos # Seg Neutrophils % Lymphocytes % (Manual) Seg Neutrophils # Lymphocytes # (Manual) PT INR APTT D-Dimer Heparin Anti-Xa Level POC ABG pH POC ABG pCO2 POC ABG pO2 Sodium Potassium Chloride Carbon Dioxide BUN Creatinine Glucose POC Glucose 170 H 239 H 209 H Lactic Acid Calcium Magnesium AST Alkaline Phosphatase Total Creatine Kinase CK-MB (CK-2) Troponin T C-Reactive Protein Total Protein Albumin Cholesterol LDL Cholesterol Direct HDL Cholesterol Free T4 Urine WBC (Auto) Urine Creatinine Urine Total Protein Crossmatch 08/31/18 08/31/18 09/01/18 22:25 22:25 01:47 WBC RBC Hgb Hct MCV MCH MCHC RDW Lymph % (Auto) [place] % (Auto) Eos % (Auto) Lymph # [place] # Eos # Seg Neutrophils % Lymphocytes % (Manual) Seg Neutrophils # Lymphocytes # (Manual) PT INR APTT D-Dimer Heparin Anti-Xa Level POC ABG pH POC ABG pCO2 45.6 H POC ABG pO2 135 H Sodium Potassium Chloride Carbon Dioxide BUN Creatinine Glucose POC Glucose 208 H 223 H Lactic Acid Calcium Magnesium AST Alkaline Phosphatase Total Creatine Kinase CK-MB (CK-2) Troponin T C-Reactive Protein Total Protein Albumin Cholesterol LDL Cholesterol Direct HDL Cholesterol Free T4 Urine WBC (Auto) Urine Creatinine Urine Total Protein Crossmatch 09/01/18 09/01/18 09/01/18 05:18 05:19 05:19 WBC RBC 3.08 L Hgb 8.5 L Hct 25.6 L MCV 83 L MCH MCHC RDW 18.7 H Lymph % (Auto) [place] % (Auto) 7.9 H Eos % (Auto) 6.1 H Lymph # [place] # Eos # Seg Neutrophils % Lymphocytes % (Manual) Seg Neutrophils # Lymphocytes # (Manual) PT INR APTT D-Dimer Heparin Anti-Xa Level POC ABG pH POC ABG pCO2 POC ABG pO2 Sodium Potassium Chloride 107.9 H Carbon Dioxide BUN 21 H Creatinine 0.7 L Glucose 188 H POC Glucose 236 H Lactic Acid Calcium Magnesium AST Alkaline Phosphatase Total Creatine Kinase CK-MB (CK-2) Troponin T C-Reactive Protein Total Protein Albumin Cholesterol LDL Cholesterol Direct HDL Cholesterol Free T4 Urine WBC (Auto) Urine Creatinine Urine Total Protein Crossmatch 09/01/18 09/01/18 09/01/18 09:29 14:25 18:20 WBC RBC Hgb Hct MCV MCH MCHC RDW Lymph % (Auto) [place] % (Auto) Eos % (Auto) Lymph # [place] # Eos # Seg Neutrophils % Lymphocytes % (Manual) Seg Neutrophils # Lymphocytes # (Manual) PT INR APTT D-Dimer Heparin Anti-Xa Level POC ABG pH POC ABG pCO2 POC ABG pO2 Sodium Potassium Chloride Carbon Dioxide BUN Creatinine Glucose POC Glucose 231 H 294 H 215 H Lactic Acid Calcium Magnesium AST Alkaline Phosphatase Total Creatine Kinase CK-MB (CK-2) Troponin T C-Reactive Protein Total Protein Albumin Cholesterol LDL Cholesterol Direct HDL Cholesterol Free T4 Urine WBC (Auto) Urine Creatinine Urine Total Protein Crossmatch 09/01/18 09/02/18 09/02/18 21:21 03:28 05:25 WBC RBC Hgb Hct MCV MCH MCHC RDW Lymph % (Auto) [place] % (Auto) Eos % (Auto) Lymph # [place] # Eos # Seg Neutrophils % Lymphocytes % (Manual) Seg Neutrophils # Lymphocytes # (Manual) PT INR APTT D-Dimer Heparin Anti-Xa Level POC ABG pH POC ABG pCO2 POC ABG pO2 Sodium Potassium Chloride Carbon Dioxide BUN Creatinine Glucose POC Glucose 236 H 194 H 183 H Lactic Acid Calcium Magnesium AST Alkaline Phosphatase Total Creatine Kinase CK-MB (CK-2) Troponin T C-Reactive Protein Total Protein Albumin Cholesterol LDL Cholesterol Direct HDL Cholesterol Free T4 Urine WBC (Auto) Urine Creatinine Urine Total Protein Crossmatch 09/02/18 09/02/18 09/02/18 09:16 15:30 17:20 WBC RBC Hgb Hct MCV MCH MCHC RDW Lymph % (Auto) [place] % (Auto) Eos % (Auto) Lymph # [place] # Eos # Seg Neutrophils % Lymphocytes % (Manual) Seg Neutrophils # Lymphocytes # (Manual) PT INR APTT D-Dimer Heparin Anti-Xa Level POC ABG pH POC ABG pCO2 POC ABG pO2 Sodium Potassium Chloride Carbon Dioxide BUN Creatinine Glucose POC Glucose 251 H 303 H 316 H Lactic Acid Calcium Magnesium AST Alkaline Phosphatase Total Creatine Kinase CK-MB (CK-2) Troponin T C-Reactive Protein Total Protein Albumin Cholesterol LDL Cholesterol Direct HDL Cholesterol Free T4 Urine WBC (Auto) Urine Creatinine Urine Total Protein Crossmatch 09/02/18 09/03/18 09/03/18 21:25 03:32 05:20 WBC RBC Hgb Hct MCV MCH MCHC RDW Lymph % (Auto) [place] % (Auto) Eos % (Auto) Lymph # [place] # Eos # Seg Neutrophils % Lymphocytes % (Manual) Seg Neutrophils # Lymphocytes # (Manual) PT INR APTT D-Dimer Heparin Anti-Xa Level POC ABG pH POC ABG pCO2 POC ABG pO2 Sodium Potassium Chloride Carbon Dioxide BUN Creatinine Glucose POC Glucose 242 H 305 H 225 H Lactic Acid Calcium Magnesium AST Alkaline Phosphatase Total Creatine Kinase CK-MB (CK-2) Troponin T C-Reactive Protein Total Protein Albumin Cholesterol LDL Cholesterol Direct HDL Cholesterol Free T4 Urine WBC (Auto) Urine Creatinine Urine Total Protein Crossmatch 09/03/18 09/03/18 09/03/18 07:52 07:52 10:19 WBC RBC 3.29 L Hgb 9.0 L Hct 27.3 L MCV 83 L MCH 27 L MCHC RDW 18.4 H Lymph % (Auto) [place] % (Auto) Eos % (Auto) Lymph # [place] # Eos # Seg Neutrophils % Lymphocytes % (Manual) Seg Neutrophils # Lymphocytes # (Manual) PT INR APTT D-Dimer Heparin Anti-Xa Level POC ABG pH POC ABG pCO2 POC ABG pO2 Sodium Potassium Chloride Carbon Dioxide BUN 23 H Creatinine Glucose 205 H POC Glucose 228 H Lactic Acid Calcium 7.9 L Magnesium AST Alkaline Phosphatase Total Creatine Kinase CK-MB (CK-2) Troponin T C-Reactive Protein Total Protein Albumin Cholesterol LDL Cholesterol Direct HDL Cholesterol Free T4 Urine WBC (Auto) Urine Creatinine Urine Total Protein Crossmatch 09/03/18 09/03/18 09/03/18 13:42 17:22 21:33 WBC RBC Hgb Hct MCV MCH MCHC RDW Lymph % (Auto) [place] % (Auto) Eos % (Auto) Lymph # [place] # Eos # Seg Neutrophils % Lymphocytes % (Manual) Seg Neutrophils # Lymphocytes # (Manual) PT INR APTT D-Dimer Heparin Anti-Xa Level POC ABG pH POC ABG pCO2 POC ABG pO2 Sodium Potassium Chloride Carbon Dioxide BUN Creatinine Glucose POC Glucose 221 H 186 H 179 H Lactic Acid Calcium Magnesium AST Alkaline Phosphatase Total Creatine Kinase CK-MB (CK-2) Troponin T C-Reactive Protein Total Protein Albumin Cholesterol LDL Cholesterol Direct HDL Cholesterol Free T4 Urine WBC (Auto) Urine Creatinine Urine Total Protein Crossmatch 09/04/18 09/04/18 09/04/18 02:07 05:54 11:03 WBC RBC Hgb Hct MCV MCH MCHC RDW Lymph % (Auto) [place] % (Auto) Eos % (Auto) Lymph # [place] # Eos # Seg Neutrophils % Lymphocytes % (Manual) Seg Neutrophils # Lymphocytes # (Manual) PT INR APTT D-Dimer Heparin Anti-Xa Level POC ABG pH POC ABG pCO2 POC ABG pO2 Sodium Potassium Chloride Carbon Dioxide BUN Creatinine Glucose POC Glucose 174 H 171 H 181 H Lactic Acid Calcium Magnesium AST Alkaline Phosphatase Total Creatine Kinase CK-MB (CK-2) Troponin T C-Reactive Protein Total Protein Albumin Cholesterol LDL Cholesterol Direct HDL Cholesterol Free T4 Urine WBC (Auto) Urine Creatinine Urine Total Protein Crossmatch 09/04/18 09/04/18 09/04/18 14:59 18:24 21:50 WBC RBC Hgb Hct MCV MCH MCHC RDW Lymph % (Auto) [place] % (Auto) Eos % (Auto) Lymph # [place] # Eos # Seg Neutrophils % Lymphocytes % (Manual) Seg Neutrophils # Lymphocytes # (Manual) PT INR APTT D-Dimer Heparin Anti-Xa Level POC ABG pH POC ABG pCO2 POC ABG pO2 Sodium Potassium Chloride Carbon Dioxide BUN Creatinine Glucose POC Glucose 204 H 236 H 197 H Lactic Acid Calcium Magnesium AST Alkaline Phosphatase Total Creatine Kinase CK-MB (CK-2) Troponin T C-Reactive Protein Total Protein Albumin Cholesterol LDL Cholesterol Direct HDL Cholesterol Free T4 Urine WBC (Auto) Urine Creatinine Urine Total Protein Crossmatch 09/05/18 09/05/18 09/05/18 01:32 04:52 04:52 WBC RBC 3.16 L Hgb 8.7 L Hct 26.0 L MCV 82 L MCH MCHC RDW 18.9 H Lymph % (Auto) [place] % (Auto) Eos % (Auto) Lymph # [place] # Eos # Seg Neutrophils % Lymphocytes % (Manual) Seg Neutrophils # Lymphocytes # (Manual) PT INR APTT D-Dimer Heparin Anti-Xa Level POC ABG pH POC ABG pCO2 POC ABG pO2 Sodium Potassium Chloride 107.2 H Carbon Dioxide BUN 23 H Creatinine 0.7 L Glucose 215 H POC Glucose 210 H Lactic Acid Calcium 8.3 L Magnesium AST Alkaline Phosphatase Total Creatine Kinase CK-MB (CK-2) Troponin T C-Reactive Protein Total Protein Albumin Cholesterol LDL Cholesterol Direct HDL Cholesterol Free T4 Urine WBC (Auto) Urine Creatinine Urine Total Protein Crossmatch 09/05/18 09/05/18 05:36 10:26 WBC RBC Hgb Hct MCV MCH MCHC RDW Lymph % (Auto) [place] % (Auto) Eos % (Auto) Lymph # [place] # Eos # Seg Neutrophils % Lymphocytes % (Manual) Seg Neutrophils # Lymphocytes # (Manual) PT INR APTT D-Dimer Heparin Anti-Xa Level POC ABG pH POC ABG pCO2 POC ABG pO2 Sodium Potassium Chloride Carbon Dioxide BUN Creatinine Glucose POC Glucose 216 H 206 H Lactic Acid Calcium Magnesium AST Alkaline Phosphatase Total Creatine Kinase CK-MB (CK-2) Troponin T C-Reactive Protein Total Protein Albumin Cholesterol LDL Cholesterol Direct HDL Cholesterol Free T4 Urine WBC (Auto) Urine Creatinine Urine Total Protein Crossmatch Chest x-ray: other (none ordered) Allied health notes reviewed: nursing
[2018-09-05] MEDS: LOVENOX SUB-Q SCH (22:01)
[2018-09-05] MEDS: LANTUS SUB-Q SCH (22:02)
[2018-09-06] MEDS: HumaLOG SUB-Q SCH ×6 (02:00→21:44)
[2018-09-06] MEDS: APRESOLINE PO SCH ×3 (06:08→21:34)
--- NOTE | 2018-09-06 09:03 | Progress Note ---
Assessment and Plan Assessment and plan: Patient is a 77 yo man from [facility] with a history of respiratory failure, CVA with tracheostomy and Gtube who presented to [facility] ED following cardiac arrest after being found unresponsive at the intermediate. Time down is unknown per records. The patient is on the vent and unresponsive, all history is obtained from the chart. Patient had multiple episodes of arrest/pulselessness. He has been on the vent since then without any improvement. Per ER notes the patient was bagged via tracheostomy which continued to have low tidal volumes and so the patient with orally intubated after which tidal volumes improved. Initially, he went to [facility] may 05 to june 05, he had fluid on brain and multiple strokes per family and they drained the fluid off the brain. The trach was placed at [facility] and patient went to [facility], x 7 weeks (trach was changed where capped was placed), he was doing well, talking and sitting up. Then he went to [facility], August 03 Then on August 12, Friday, he had cardio-respiratory arrest. The NE brain flow scan showed reduced blood flow. Patient had evaluation by neurology who reports patient with intact brainstem function. Cardiopulmonary arrest x 3: Supportive care, cardiology and Pulm were follwing. Cardiology now signed off. Acute on chronic respiratory failure Trach has been removed when patient was orally intubated, continue ventilator management per pulmonology. Tracheostomy was replaced by surgery on 08/25/18. Tracheostomy care, airway clearance, secretion management Right pneumothorax, resolved. Status post chest tube, mgt per pulmonology Anoxic encephalopathy: neurology consult appreciated, poor prognosis, poor likelihood of recovery, preserved brain stem function otherwise unresponsive. EEG is suggestive hypoxic encephalopathy. Hypertension. On Hydralazine 75 mg 3 times a day Hypernatremia, Continue free water via G-tube, s/p hypotonic IV solution, monitor bmp closely Acute kidney injury likely due to ATN Nephrology following, continue IV fluid, avoid renal toxic agents NSTEMI: treated with IV heparin, asa, statin, no bblocker due to bradycardia, hypotension, Cardiology was following Severe protein calorie malnutrition: Dietitian consulted, continue tube feedings UTI/sepsis: Continue antibiotics, follow-up urine cultures-->no growth x 48 hours Type 2 dm with persistent hyperglycemia: cont insulins and adjust according, on tube feedings Anemia: s/p transfusion Hypertensive urgency Start norvasc Increase Hydralazine to 100mg tid Hydralazine iv prn Urinary retention: DVT prophylaxis; On Lovenox Disposition. Patient denied LTAC case management discussing options with family Poor prognosis The high probability of a clinically significant, sudden or life threatening deterioration of the [neurology and respiratory] system(s) required my full and direct attention, intervention and personal management. The aggregate critical care time was [34] minutes. This time is in addition to time spent performing reported procedures but includes the following: [x] Data Review and interpretation [x] Patient assessment and monitoring of vital signs [x] Documentation History Interval history: Still intubated, on vent still unresponsive No new events overnight Hospitalist Physical - Physical exam Narrative exam: Gen: Not in acute distress, lying in bed, intubated HEENT: Normocephalic, atraumatic Neck: supple, no JVD Heart: S1 and S2 reg, no murmurs, rubs or gallop Lungs: Clear, no crackles, no wheeze Abd: soft, non tender, non distended, normal BS Ext: no edema Neuro:intubated, comatose,unresponsive - Constitutional Vitals: Temp Pulse Resp BP Pulse Ox 98.0 F 70 14 120/60 100 09/06/18 04:40 09/06/18 06:00 09/06/18 06:00 09/06/18 06:00 09/06/18 06:00 General appearance: Present: other (twitching, nonresponsive, intubated) Results - Labs CBC & Chem 7: 09/05/18 04:52 09/05/18 04:52 Labs: Laboratory Last Values WBC 9.9 K/mm3 (4.5-11.0) 09/05/18 04:52 RBC 3.16 M/mm3 (3.65-5.03) L 09/05/18 04:52 Hgb 8.7 gm/dl (11.8-15.2) L 09/05/18 04:52 Hct 26.0 % (35.5-45.6) L 09/05/18 04:52 MCV 82 fl (84-94) L 09/05/18 04:52 MCH 28 pg (28-32) 09/05/18 04:52 MCHC 33 % (32-34) 09/05/18 04:52 RDW 18.9 % (13.2-15.2) H 09/05/18 04:52 Plt Count 248 K/mm3 (140-440) 09/05/18 04:52 Lymph % (Auto) 26.8 % (13.4-35.0) 09/01/18 05:19 Crisp % (Auto) 7.9 % (0.0-7.3) H 09/01/18 05:19 Eos % (Auto) 6.1 % (0.0-4.3) H 09/01/18 05:19 Baso % (Auto) 0.7 % (0.0-1.8) 09/01/18 05:19 Lymph # 1.7 K/mm3 (1.2-5.4) 09/01/18 05:19 Crisp # 0.5 K/mm3 (0.0-0.8) 09/01/18 05:19 Eos # 0.4 K/mm3 (0.0-0.4) 09/01/18 05:19 Baso # 0.0 K/mm3 (0.0-0.1) 09/01/18 05:19 Add Manual Diff Complete 08/12/18 21:44 Total Counted 100 08/12/18 21:44 Seg Neutrophils % 58.5 % (40.0-70.0) 09/01/18 05:19 Seg Neuts % (Manual) 44.0 % (40.0-70.0) 08/12/18 21:44 0 % 08/12/18 21:44 48.0 % (13.4-35.0) H 08/12/18 21:44 Reactive Lymphs % (Man) 0 % 08/12/18 21:44 2.0 % (0.0-7.3) 08/12/18 21:44 1.0 % (0.0-4.3) 08/12/18 21:44 0 % (0.0-1.8) 08/12/18 21:44 1.0 % 08/12/18 21:44 4.0 % 08/12/18 21:44 0 % 08/12/18 21:44 0 % 08/12/18 21:44 Nucleated RBC % Not Reportable 08/12/18 21:44 Seg Neutrophils # 3.6 K/mm3 (1.8-7.7) 09/01/18 05:19 Seg Neutrophils # Man 6.8 K/mm3 (1.8-7.7) 08/12/18 21:44 Band Neutrophils # 0.0 K/mm3 08/12/18 21:44 7.4 K/mm3 (1.2-5.4) H 08/12/18 21:44 Abs React Lymphs (Man) 0.0 K/mm3 08/12/18 21:44 0.3 K/mm3 (0.0-0.8) 08/12/18 21:44 0.2 K/mm3 (0.0-0.4) 08/12/18 21:44 0.0 K/mm3 (0.0-0.1) 08/12/18 21:44 0.2 K/mm3 08/12/18 21:44 0.6 K/mm3 08/12/18 21:44 0.0 K/mm3 08/12/18 21:44 Blast Cells # 0.0 K/mm3 08/12/18 21:44 WBC Morphology Not Reportable 08/12/18 21:44 Hypersegmented Neuts Not Reportable 08/12/18 21:44 Hyposegmented Neuts Not Reportable 08/12/18 21:44 Hypogranular Neuts Not Reportable 08/12/18 21:44 Not Reportable 08/12/18 21:44 Not Reportable 08/12/18 21:44 Not Reportable 08/12/18 21:44 Not Reportable 08/12/18 21:44 Not Reportable 08/12/18 21:44 Not Reportable 08/12/18 21:44 Consistent w auto 08/12/18 21:44 Not Reportable 08/12/18 21:44 Plt Clumps, EDTA Not Reportable 08/12/18 21:44 Not Reportable 08/12/18 21:44 Not Reportable 08/12/18 21:44 Not Reportable 08/12/18 21:44 Plt Morphology Comment Not Reportable 08/12/18 21:44 RBC Morphology Not Reportable 08/12/18 21:44 Dimorphic RBCs Not Reportable 08/12/18 21:44 Not Reportable 08/12/18 21:44 Not Reportable 08/12/18 21:44 Not Reportable 08/12/18 21:44 Few 08/12/18 21:44 Not Reportable 08/12/18 21:44 Not Reportable 08/12/18 21:44 Not Reportable 08/12/18 21:44 Not Reportable 08/12/18 21:44 Not Reportable 08/12/18 21:44 Not Reportable 08/12/18 21:44 Not Reportable 08/12/18 21:44 Few 08/12/18 21:44 Not Reportable 08/12/18 21:44 Not Reportable 08/12/18 21:44 Not Reportable 08/12/18 21:44 Not Reportable 08/12/18 21:44 Not Reportable 08/12/18 21:44 Not Reportable 08/12/18 21:44 Few 08/12/18 21:44 Acanthocytes (Spur) Not Reportable 08/12/18 21:44 Rouleaux Not Reportable 08/12/18 21:44 Not Reportable 08/12/18 21:44 Not Reportable 08/12/18 21:44 Not Reportable 08/12/18 21:44 Not Reportable 08/12/18 21:44 Hem Pathologist Commnt No 08/12/18 21:44 PT 16.5 Sec. (12.2-14.9) H 08/13/18 00:47 INR 1.25 (0.87-1.13) H 08/13/18 00:47 APTT 79.0 Sec. (24.2-36.6) H* 08/15/18 06:35 2742.50 ng/mlDDU (0-234) H 08/13/18 20:07 Heparin Anti-Xa Level 0.26 U.I./ml (0.3-0.7) L 08/16/18 20:01 POC ABG pH 7.478 (7.35-7.45) H 09/05/18 18:32 POC ABG pCO2 39.7 (35-45) 09/05/18 18:32 POC ABG pO2 138 (80-105) H 09/05/18 18:32 POC ABG HCO3 29.4 (22-26 mml/L) 09/05/18 18:32 POC ABG Total CO2 31 (23-27mmol/L) 09/05/18 18:32 POC ABG O2 Sat 99 09/05/18 18:32 POC ABG Base Excess 6 ((-2) - (+3)mmol/L) 09/05/18 18:32 30 % 09/05/18 18:32 Sodium 142 mmol/L (137-145) 09/05/18 04:52 Potassium 3.8 mmol/L (3.6-5.0) 09/05/18 04:52 Chloride 107.2 mmol/L (98-107) H 09/05/18 04:52 Carbon Dioxide 29 mmol/L (22-30) 09/05/18 04:52 10 mmol/L 09/05/18 04:52 BUN 23 mg/dL (9-20) H 09/05/18 04:52 0.7 mg/dL (0.8-1.5) L 09/05/18 04:52 Estimated GFR > 60 ml/min 09/05/18 04:52 33 % 09/05/18 04:52 Glucose 215 mg/dL (75-100) H 09/05/18 04:52 POC Glucose 188 (70-105) H 09/06/18 08:30 Lactic Acid 2.80 mmol/L (0.7-2.0) H* 08/13/18 12:53 Calcium 8.3 mg/dL (8.4-10.2) L 09/05/18 04:52 Phosphorus 3.90 mg/dL (2.5-4.5) 08/15/18 04:05 Magnesium 2.20 mg/dL (1.7-2.3) 08/15/18 04:05 < 0.20 mg/dL (0.1-1.2) 08/30/18 05:40 AST 50 units/L (5-40) H 08/30/18 05:40 ALT 31 units/L (7-56) 08/30/18 05:40 158 units/L (35-129) H 08/30/18 05:40 309 units/L (55-170) H 08/13/18 10:10 CK-MB (CK-2) 4.1 ng/mL (0.0-4.0) H 08/13/18 10:10 CK-MB (CK-2) Rel Index 1.3 (0-4) 08/13/18 10:10 0.409 ng/mL (0.00-0.029) H* 08/14/18 04:03 16.90 mg/dL (0.00-1.30) H 08/13/18 12:53 6.4 g/dL (6.3-8.2) 08/30/18 05:40 1.6 g/dL (3.9-5) L 08/30/18 05:40 0.3 % 08/30/18 05:40 Triglycerides 62 mg/dL (2-149) 08/13/18 00:32 Cholesterol 46 mg/dL (50-199) L 08/13/18 00:32 17 mg/dL (50-130) L 08/13/18 00:32 6 mg/dL (40-59) L 08/13/18 00:32 7.66 % 08/13/18 00:32 TSH 0.973 mlU/mL (0.270-4.200) 08/26/18 09:00 Free T4 0.51 ng/dL (0.76-1.46) L 08/26/18 09:00 Yellow (Yellow) 08/25/18 12:40 Turbid (Clear) 08/25/18 12:40 7.0 (5.0-7.0) 08/25/18 12:40 Ur Specific [place] 1.009 (1.003-1.030) 08/25/18 12:40 100 mg/dl mg/dL (Negative) 08/25/18 12:40 Neg mg/dL (Negative) 08/25/18 12:40 Neg mg/dL (Negative) 08/25/18 12:40 Mod (Negative) 08/25/18 12:40 Neg (Negative) 08/25/18 12:40 Neg (Negative) 08/25/18 12:40 < 2.0 mg/dL (<2.0) 08/25/18 12:40 Ur Leukocyte Esterase Lg (Negative) 08/25/18 12:40 > 182.0 /HPF (0.0-6.0) H 08/25/18 12:40 10.0 /HPF (0.0-6.0) 08/25/18 12:40 U Epithel Cells (Auto) 5.0 /HPF (0-13.0) 08/25/18 12:40 2+ /HPF (Negative) 08/13/18 00:50 3+ /HPF 08/25/18 12:40 None seen (None Seen) 08/14/18 17:20 60.9 mg/dL (0.1-20.0) H 08/14/18 17:20 32 mmol/L 08/14/18 17:20 64 mg/dL (5-11.8) H 08/14/18 17:20 Presumptive negative 08/12/18 21:30 Presumptive negative 08/12/18 21:30 Ur Barbiturates Screen Presumptive negative 08/12/18 21:30 Ur Phencyclidine Scrn Presumptive negative 08/12/18 21:30 Ur Amphetamines Screen Presumptive negative 08/12/18 21:30 U Benzodiazepines Scrn Presumptive negative 08/12/18 21:30 Presumptive negative 08/12/18 21:30 U Marijuana (THC) Screen Presumptive negative 08/12/18 21:30 Disclamer 08/12/18 21:30 Blood Type O POSITIVE 08/15/18 15:31 Antibody Screen Negative 08/15/18 15:31 Crossmatch See Detail 08/15/18 15:31 Active Medications - Current Medications Current Medications: Generic Name Dose Route Start Last Admin Trade Name Freq PRN Reason Stop Dose Admin Acetaminophen 650 mg 08/13/18 11:40 08/13/18 16:09 Tylenol PO 650 mg Q6H PRN Administration Fever >101 Amlodipine Besylate 5 mg 09/02/18 10:00 09/05/18 09:18 Norvasc FEEDTUBE 5 mg QDAY LENCHO Administration Lipase/Protease/Amylase 1 each 08/25/18 18:36 Pancreaze 10,500 Unit FEEDTUBE PRN PRN For Clogged Feeding Tube Aspirin 325 mg 08/17/18 10:00 09/05/18 09:19 Aspirin PO 325 mg QDAY LENCHO Administration Atorvastatin Calcium 40 mg 08/14/18 22:00 09/05/18 22:01 Lipitor PO 40 mg QHS LENCHO Administration Dextrose 50 ml 08/13/18 01:34 D50w (25gm) Syringe IV PRN PRN Hypoglycemia Enoxaparin Sodium 40 mg 08/17/18 22:00 09/05/18 22:01 Lovenox SUB-Q 40 mg QDAY@2200 LENCHO Administration Famotidine 20 mg 08/19/18 10:00 09/05/18 22:01 Pepcid PO 20 mg BID LENCHO Administration Hydralazine HCl 100 mg 09/02/18 09:00 09/06/18 06:08 Apresoline PO 100 mg Q8HR LENCHO Administration Hydralazine HCl 20 mg 09/02/18 08:16 Apresoline IV Q4HR PRN SBP>160 or DBP>110 Hydrophilic Ointment 1 applic 08/13/18 12:21 Vaseline Lip Therapy TP Q2HR PRN Dry Lips Insulin Glargine 25 units 09/03/18 22:00 09/05/18 22:02 Lantus SUB-Q 25 units QHS [facility] Administration Insulin Human Lispro 0 unit 08/26/18 10:00 09/06/18 04:40 Humalog SUB-Q Not Given Q4HR [facility] Protocol Levetiracetam 500 mg 08/27/18 22:00 09/05/18 22:00 Keppra PO 500 mg BID LENCHO Administration Multi-Ingred Cream/Lotion/Oil/Oint 1 applic 08/13/18 12:21 08/17/18 00:41 Artificial Tears Ophth Oint OU 1 applic Q4HR PRN Administration Dry Eye(s) Ondansetron HCl 4 mg 08/13/18 01:34 Zofran IV Q8H PRN Nausea And Vomiting Simple Syrup 15 ml 08/25/18 18:36 Simple Syrup FEEDTUBE PRN PRN Hypoglycemia Simple Syrup 30 ml 08/25/18 18:36 Simple Syrup FEEDTUBE PRN PRN Hypoglycemia Sodium Bicarbonate 325 mg 08/25/18 18:36 Sodium Bicarbonate FEEDTUBE PRN PRN For Clogged Feeding Tube Sodium Chloride 10 ml 08/13/18 10:00 09/05/18 22:58 Sodium Chloride Flush Syringe 10 Ml IV 10 ml BID LENCHO Administration Sodium Chloride 10 ml 08/13/18 01:34 08/30/18 22:29 Sodium Chloride Flush Syringe 10 Ml IV 10 ml PRN PRN Administration LINE FLUSH Nutrition/Malnutrition Assess - Dietary Evaluation Nutrition/Malnutrition Findings: Nutrition Notes Start: 08/13/18 15:41 Freq: Status: Active Protocol: Document 09/03/18 16:28 RM (Rec: 09/03/18 16:32 RM [id number]) Nutrition Notes Initial or Follow up Reassessment Current Diagnosis Acute Kidney Injury,Diabetes Other Pertinent Diagnosis UTI, Hx CVA, PEG, Sacral PU, Multiple PU, Anoxic brain injury,R pneumothorax Current Diet Vital 1.2 at 60 ml/hr Labs/Tests Reviewed Pertinent Medications Reviewed Height 5 ft 8 in Weight 78.5 kg [place] Body Weight (kg) 70.00 BMI 26.3 Subjective/Other Information Observed Vital 1.2 hanging in room but not infusing. Nurse unsure why TF was off and turned it back on. Project Safety Manager saw that TF rate was at goal. Stated that pt has been tolerating TF at goal. Percent of energy/protein needs met: 97%/100% Burn Absent Trauma Absent #1 Nutrition Diagnosis Inadequate oral intake Diagnosis Progress(for reassessment Continues documentation) Is patient on ventilator? Yes Is Patient Ambulatory and/or Out of Bed No REE-([facility]-confined to bed) [phone] Calculation Used for Recommendations [facility] Additional Notes Protein Needs: 87-145g (1.2-2g /kg) Fluid Needs: 1 ml/kcal Nutrition Intervention Change Diet Order: TF Nutrition Support: Vital 1.2 at 60 ml/hr. Water flush of 250ml q4h for hypernatremia and 100 mls q 4 hrs once resolved. Kcal 1,728 Protein (gm) 108 Fluid (mL) 1,167 Fiber (gm) 7 Add Supplement/Snack (indicate name/kcal Magen BID /protein ) Provides kCal: 190 Provides Protein (gm) 5 Goal #1 Meet at least 80% of calorie and protein needs via TF Anticipated Discharge Needs: TF Follow-Up By: 09/10/18 Additional Comments Follow for TF tolerance
[2018-09-06] MEDS: KEPPRA PO SCH ×2 (10:19→21:33)
[2018-09-06] MEDS: ASPIRIN PO SCH (10:20)
[2018-09-06] MEDS: PEPCID PO SCH ×2 (10:20→21:33)
[2018-09-06] MEDS: NORVASC FEEDTUBE SCH (10:20)
[2018-09-06] MEDS: SODIUM CHLORIDE FLUSH SYRINGE 10 ML IV SCH ×2 (10:23→21:45)
--- NOTE | 2018-09-06 12:51 | Progress Note ---
Subjective Date of service: 09/06/18 Principal diagnosis: Acute hypoxemic resp failure; S/P cardiac arrest; Seizures; DM II; H/O CVA Interval history: will speak with Dr. Reis about interval assessment Objective - Vital Sign Vital Signs - 12hr 09/06/18 09/06/18 09/06/18 01:00 01:30 02:00 Temperature Pulse Rate 69 69 74 Pulse Rate [ From Monitor] Respiratory 17 20 9 L Rate Blood Pressure 139/58 126/57 111/51 O2 Sat by Pulse 100 100 100 Oximetry 09/06/18 09/06/18 09/06/18 02:30 02:50 03:00 Temperature Pulse Rate 68 68 70 Pulse Rate [ 67 From Monitor] Respiratory 15 15 15 Rate Blood Pressure 122/53 145/63 O2 Sat by Pulse 100 100 100 Oximetry 09/06/18 09/06/18 09/06/18 03:23 03:30 04:00 Temperature Pulse Rate 65 69 69 Pulse Rate [ From Monitor] Respiratory 17 13 Rate Blood Pressure 145/63 147/71 153/63 O2 Sat by Pulse 100 100 100 Oximetry 09/06/18 09/06/18 09/06/18 04:30 04:40 05:00 Temperature 98.0 F Pulse Rate 63 65 67 Pulse Rate [ 66 From Monitor] Respiratory 15 15 12 Rate Blood Pressure 147/71 145/63 170/65 O2 Sat by Pulse 100 100 100 Oximetry 09/06/18 09/06/18 09/06/18 05:30 06:00 06:30 Temperature Pulse Rate 63 70 63 Pulse Rate [ From Monitor] Respiratory 14 14 12 Rate Blood Pressure 128/65 120/60 134/68 O2 Sat by Pulse 100 100 Oximetry 09/06/18 09/06/18 09/06/18 07:00 07:30 08:00 Temperature 98.2 F Pulse Rate 64 67 65 Pulse Rate [ 69 From Monitor] Respiratory 15 12 14 Rate Blood Pressure 134/68 129/68 117/66 O2 Sat by Pulse 100 100 99 Oximetry 09/06/18 09/06/18 09/06/18 08:30 08:55 09:00 Temperature Pulse Rate 64 72 74 Pulse Rate [ From Monitor] Respiratory 14 12 14 Rate Blood Pressure 139/70 125/77 125/68 O2 Sat by Pulse 98 100 100 Oximetry 09/06/18 09/06/18 09/06/18 09:30 10:00 10:20 Temperature Pulse Rate 71 76 72 Pulse Rate [ From Monitor] Respiratory 13 11 L Rate Blood Pressure 125/68 125/77 125/77 O2 Sat by Pulse 100 100 Oximetry 09/06/18 09/06/18 09/06/18 10:30 11:00 11:30 Temperature Pulse Rate 73 72 75 Pulse Rate [ From Monitor] Respiratory 11 L 15 15 Rate Blood Pressure 150/76 137/73 145/79 O2 Sat by Pulse 100 100 100 Oximetry 09/06/18 12:00 Temperature 97.4 F L Pulse Rate 74 Pulse Rate [ 72 From Monitor] Respiratory 9 L Rate Blood Pressure 127/72 O2 Sat by Pulse 100 Oximetry - Laboratory Findings CBC and BMP: 09/05/18 04:52 09/05/18 04:52 Abnormal Lab Findings: Abnormal Labs 08/12/18 08/12/18 08/12/18 21:44 21:44 21:44 WBC 15.5 H RBC 3.12 L Hgb 8.8 L Hct 28.9 L MCV MCH MCHC 31 L RDW 19.5 H Lymph % (Auto) [place] % (Auto) Eos % (Auto) Lymph # [place] # Eos # Seg Neutrophils % Lymphocytes % (Manual) 48.0 H Seg Neutrophils # Lymphocytes # (Manual) 7.4 H PT 17.8 H INR 1.37 H APTT D-Dimer Heparin Anti-Xa Level POC ABG pH POC ABG pCO2 POC ABG pO2 Sodium 159 H Potassium Chloride 118.5 H Carbon Dioxide BUN 34 H Creatinine Glucose 161 H POC Glucose Lactic Acid Calcium Magnesium AST Alkaline Phosphatase Total Creatine Kinase CK-MB (CK-2) Troponin T 0.105 H* C-Reactive Protein Total Protein Albumin Cholesterol LDL Cholesterol Direct HDL Cholesterol Free T4 Urine WBC (Auto) Urine Creatinine Urine Total Protein Crossmatch 08/13/18 08/13/18 08/13/18 00:32 00:47 00:47 WBC RBC Hgb 9.2 L Hct 29.6 L MCV MCH MCHC RDW Lymph % (Auto) [place] % (Auto) Eos % (Auto) Lymph # [place] # Eos # Seg Neutrophils % Lymphocytes % (Manual) Seg Neutrophils # Lymphocytes # (Manual) PT 16.5 H INR 1.25 H APTT 37.3 H D-Dimer Heparin Anti-Xa Level POC ABG pH POC ABG pCO2 POC ABG pO2 Sodium Potassium Chloride Carbon Dioxide BUN Creatinine Glucose POC Glucose Lactic Acid Calcium Magnesium AST Alkaline Phosphatase Total Creatine Kinase 211 H CK-MB (CK-2) 7.7 H Troponin T 0.169 H* D C-Reactive Protein Total Protein Albumin Cholesterol 46 L LDL Cholesterol Direct 17 L HDL Cholesterol 6 L Free T4 Urine WBC (Auto) Urine Creatinine Urine Total Protein Crossmatch 08/13/18 08/13/18 08/13/18 00:50 02:25 05:34 WBC RBC Hgb Hct MCV MCH MCHC RDW Lymph % (Auto) [place] % (Auto) Eos % (Auto) Lymph # [place] # Eos # Seg Neutrophils % Lymphocytes % (Manual) Seg Neutrophils # Lymphocytes # (Manual) PT INR APTT D-Dimer Heparin Anti-Xa Level POC ABG pH 7.503 H POC ABG pCO2 POC ABG pO2 253 H Sodium Potassium Chloride Carbon Dioxide BUN Creatinine Glucose POC Glucose Lactic Acid Calcium Magnesium AST Alkaline Phosphatase Total Creatine Kinase 311 H CK-MB (CK-2) 10.4 H Troponin T 0.283 H* D C-Reactive Protein Total Protein Albumin Cholesterol LDL Cholesterol Direct HDL Cholesterol Free T4 Urine WBC (Auto) > 182.0 H Urine Creatinine Urine Total Protein Crossmatch 08/13/18 08/13/18 08/13/18 06:35 10:10 10:10 WBC RBC Hgb Hct MCV MCH MCHC RDW Lymph % (Auto) [place] % (Auto) Eos % (Auto) Lymph # [place] # Eos # Seg Neutrophils % Lymphocytes % (Manual) Seg Neutrophils # Lymphocytes # (Manual) PT INR APTT D-Dimer Heparin Anti-Xa Level POC ABG pH 7.554 H POC ABG pCO2 33.5 L POC ABG pO2 220 H Sodium 158 H Potassium Chloride 117.1 H Carbon Dioxide BUN 53 H Creatinine 2.0 H Glucose 247 H POC Glucose Lactic Acid Calcium 8.2 L Magnesium AST Alkaline Phosphatase Total Creatine Kinase 309 H CK-MB (CK-2) 4.1 H Troponin T 0.470 H* D C-Reactive Protein Total Protein Albumin Cholesterol LDL Cholesterol Direct HDL Cholesterol Free T4 Urine WBC (Auto) Urine Creatinine Urine Total Protein Crossmatch 08/13/18 08/13/18 08/13/18 12:53 12:53 17:55 WBC RBC Hgb Hct MCV MCH MCHC RDW Lymph % (Auto) [place] % (Auto) Eos % (Auto) Lymph # [place] # Eos # Seg Neutrophils % Lymphocytes % (Manual) Seg Neutrophils # Lymphocytes # (Manual) PT INR APTT D-Dimer Heparin Anti-Xa Level POC ABG pH POC ABG pCO2 POC ABG pO2 Sodium Potassium Chloride Carbon Dioxide BUN Creatinine Glucose POC Glucose 308 H Lactic Acid 2.80 H* Calcium Magnesium 2.50 H AST Alkaline Phosphatase Total Creatine Kinase CK-MB (CK-2) Troponin T C-Reactive Protein 16.90 H Total Protein Albumin Cholesterol LDL Cholesterol Direct HDL Cholesterol Free T4 Urine WBC (Auto) Urine Creatinine Urine Total Protein Crossmatch 08/13/18 08/13/18 08/13/18 20:07 21:16 23:17 WBC RBC Hgb Hct MCV MCH MCHC RDW Lymph % (Auto) [place] % (Auto) Eos % (Auto) Lymph # [place] # Eos # Seg Neutrophils % Lymphocytes % (Manual) Seg Neutrophils # Lymphocytes # (Manual) PT INR APTT D-Dimer 2742.50 H Heparin Anti-Xa Level POC ABG pH 7.483 H POC ABG pCO2 30.8 L POC ABG pO2 150 H Sodium Potassium Chloride Carbon Dioxide BUN Creatinine Glucose POC Glucose 245 H Lactic Acid Calcium Magnesium AST Alkaline Phosphatase Total Creatine Kinase CK-MB (CK-2) Troponin T C-Reactive Protein Total Protein Albumin Cholesterol LDL Cholesterol Direct HDL Cholesterol Free T4 Urine WBC (Auto) Urine Creatinine Urine Total Protein Crossmatch 08/14/18 08/14/18 08/14/18 04:03 04:03 04:56 WBC 18.2 H RBC 2.62 L Hgb 7.3 L Hct 24.5 L MCV MCH MCHC RDW 18.9 H Lymph % (Auto) [place] % (Auto) Eos % (Auto) Lymph # [place] # 1.2 H Eos # Seg Neutrophils % 79.4 H Lymphocytes % (Manual) Seg Neutrophils # 14.5 H Lymphocytes # (Manual) PT INR APTT D-Dimer Heparin Anti-Xa Level POC ABG pH POC ABG pCO2 33.5 L POC ABG pO2 153 H Sodium 152 H Potassium 3.4 L Chloride 113.8 H Carbon Dioxide BUN 72 H Creatinine 2.7 H Glucose 239 H POC Glucose Lactic Acid Calcium 7.6 L Magnesium AST 50 H Alkaline Phosphatase 219 H Total Creatine Kinase CK-MB (CK-2) Troponin T 0.409 H* C-Reactive Protein Total Protein 6.2 L Albumin 1.9 L Cholesterol LDL Cholesterol Direct HDL Cholesterol Free T4 Urine WBC (Auto) Urine Creatinine Urine Total Protein Crossmatch 08/14/18 08/14/18 08/14/18 05:18 13:38 15:35 WBC RBC Hgb Hct MCV MCH MCHC RDW Lymph % (Auto) [place] % (Auto) Eos % (Auto) Lymph # [place] # Eos # Seg Neutrophils % Lymphocytes % (Manual) Seg Neutrophils # Lymphocytes # (Manual) PT INR APTT D-Dimer Heparin Anti-Xa Level POC ABG pH POC ABG pCO2 POC ABG pO2 Sodium 150 H Potassium 3.2 L Chloride 114.5 H Carbon Dioxide BUN 69 H Creatinine 2.3 H Glucose 247 H POC Glucose 242 H 296 H Lactic Acid Calcium 7.2 L Magnesium AST Alkaline Phosphatase Total Creatine Kinase CK-MB (CK-2) Troponin T C-Reactive Protein Total Protein Albumin Cholesterol LDL Cholesterol Direct HDL Cholesterol Free T4 Urine WBC (Auto) Urine Creatinine Urine Total Protein Crossmatch 08/14/18 08/14/18 08/14/18 17:01 17:20 23:47 WBC RBC Hgb Hct MCV MCH MCHC RDW Lymph % (Auto) [place] % (Auto) Eos % (Auto) Lymph # [place] # Eos # Seg Neutrophils % Lymphocytes % (Manual) Seg Neutrophils # Lymphocytes # (Manual) PT INR APTT D-Dimer Heparin Anti-Xa Level POC ABG pH POC ABG pCO2 POC ABG pO2 Sodium Potassium Chloride Carbon Dioxide BUN Creatinine Glucose POC Glucose 261 H 280 H Lactic Acid Calcium Magnesium AST Alkaline Phosphatase Total Creatine Kinase CK-MB (CK-2) Troponin T C-Reactive Protein Total Protein Albumin Cholesterol LDL Cholesterol Direct HDL Cholesterol Free T4 Urine WBC (Auto) Urine Creatinine 60.9 H Urine Total Protein 64 H Crossmatch 08/15/18 08/15/18 08/15/18 04:05 04:05 04:05 WBC RBC Hgb 6.3 L Hct 19.7 L* MCV MCH MCHC RDW Lymph % (Auto) [place] % (Auto) Eos % (Auto) Lymph # [place] # Eos # Seg Neutrophils % Lymphocytes % (Manual) Seg Neutrophils # Lymphocytes # (Manual) PT INR APTT D-Dimer Heparin Anti-Xa Level 0.17 L POC ABG pH POC ABG pCO2 POC ABG pO2 Sodium 146 H Potassium 3.0 L Chloride 110.6 H Carbon Dioxide BUN 64 H Creatinine 2.2 H Glucose 231 H POC Glucose Lactic Acid Calcium 7.1 L Magnesium AST Alkaline Phosphatase Total Creatine Kinase CK-MB (CK-2) Troponin T C-Reactive Protein Total Protein Albumin Cholesterol LDL Cholesterol Direct HDL Cholesterol Free T4 Urine WBC (Auto) Urine Creatinine Urine Total Protein Crossmatch 08/15/18 08/15/18 08/15/18 05:21 05:26 06:35 WBC RBC Hgb Hct MCV MCH MCHC RDW Lymph % (Auto) [place] % (Auto) Eos % (Auto) Lymph # [place] # Eos # Seg Neutrophils % Lymphocytes % (Manual) Seg Neutrophils # Lymphocytes # (Manual) PT INR APTT 79.0 H* D-Dimer Heparin Anti-Xa Level POC ABG pH 7.494 H POC ABG pCO2 POC ABG pO2 155 H Sodium Potassium Chloride Carbon Dioxide BUN Creatinine Glucose POC Glucose 271 H Lactic Acid Calcium Magnesium AST Alkaline Phosphatase Total Creatine Kinase CK-MB (CK-2) Troponin T C-Reactive Protein Total Protein Albumin Cholesterol LDL Cholesterol Direct HDL Cholesterol Free T4 Urine WBC (Auto) Urine Creatinine Urine Total Protein Crossmatch 08/15/18 08/15/18 08/15/18 12:10 15:31 17:27 WBC RBC Hgb Hct MCV MCH MCHC RDW Lymph % (Auto) [place] % (Auto) Eos % (Auto) Lymph # [place] # Eos # Seg Neutrophils % Lymphocytes % (Manual) Seg Neutrophils # Lymphocytes # (Manual) PT INR APTT D-Dimer Heparin Anti-Xa Level POC ABG pH POC ABG pCO2 POC ABG pO2 Sodium Potassium Chloride Carbon Dioxide BUN Creatinine Glucose POC Glucose 301 H 287 H Lactic Acid Calcium Magnesium AST Alkaline Phosphatase Total Creatine Kinase CK-MB (CK-2) Troponin T C-Reactive Protein Total Protein Albumin Cholesterol LDL Cholesterol Direct HDL Cholesterol Free T4 Urine WBC (Auto) Urine Creatinine Urine Total Protein Crossmatch See Detail 08/15/18 08/15/18 08/16/18 21:41 23:45 04:13 WBC RBC Hgb Hct MCV MCH MCHC RDW Lymph % (Auto) [place] % (Auto) Eos % (Auto) Lymph # [place] # Eos # Seg Neutrophils % Lymphocytes % (Manual) Seg Neutrophils # Lymphocytes # (Manual) PT INR APTT D-Dimer Heparin Anti-Xa Level 0.19 L POC ABG pH POC ABG pCO2 32.1 L POC ABG pO2 107 H Sodium Potassium Chloride Carbon Dioxide BUN Creatinine Glucose POC Glucose 163 H Lactic Acid Calcium Magnesium AST Alkaline Phosphatase Total Creatine Kinase CK-MB (CK-2) Troponin T C-Reactive Protein Total Protein Albumin Cholesterol LDL Cholesterol Direct HDL Cholesterol Free T4 Urine WBC (Auto) Urine Creatinine Urine Total Protein Crossmatch 08/16/18 08/16/18 08/16/18 04:50 05:28 11:30 WBC RBC 2.67 L Hgb 8.1 L Hct 23.4 L MCV MCH MCHC 35 H RDW 18.3 H Lymph % (Auto) [place] % (Auto) Eos % (Auto) Lymph # [place] # Eos # Seg Neutrophils % Lymphocytes % (Manual) Seg Neutrophils # Lymphocytes # (Manual) PT INR APTT D-Dimer Heparin Anti-Xa Level 0.19 L POC ABG pH POC ABG pCO2 POC ABG pO2 Sodium Potassium Chloride Carbon Dioxide BUN Creatinine Glucose POC Glucose 141 H Lactic Acid Calcium Magnesium AST Alkaline Phosphatase Total Creatine Kinase CK-MB (CK-2) Troponin T C-Reactive Protein Total Protein Albumin Cholesterol LDL Cholesterol Direct HDL Cholesterol Free T4 Urine WBC (Auto) Urine Creatinine Urine Total Protein Crossmatch 08/16/18 08/16/18 08/16/18 11:30 12:00 12:01 WBC RBC Hgb Hct MCV MCH MCHC RDW Lymph % (Auto) [place] % (Auto) Eos % (Auto) Lymph # [place] # Eos # Seg Neutrophils % Lymphocytes % (Manual) Seg Neutrophils # Lymphocytes # (Manual) PT INR APTT D-Dimer Heparin Anti-Xa Level 0.15 L POC ABG pH POC ABG pCO2 POC ABG pO2 Sodium Potassium Chloride 107.8 H Carbon Dioxide 21 L BUN 47 H Creatinine 1.6 H Glucose 221 H POC Glucose 267 H Lactic Acid Calcium 6.9 L Magnesium AST Alkaline Phosphatase Total Creatine Kinase CK-MB (CK-2) Troponin T C-Reactive Protein Total Protein Albumin Cholesterol LDL Cholesterol Direct HDL Cholesterol Free T4 Urine WBC (Auto) Urine Creatinine Urine Total Protein Crossmatch 08/16/18 08/16/18 08/16/18 17:23 20:01 23:13 WBC RBC Hgb Hct MCV MCH MCHC RDW Lymph % (Auto) [place] % (Auto) Eos % (Auto) Lymph # [place] # Eos # Seg Neutrophils % Lymphocytes % (Manual) Seg Neutrophils # Lymphocytes # (Manual) PT INR APTT D-Dimer Heparin Anti-Xa Level 0.26 L POC ABG pH POC ABG pCO2 POC ABG pO2 Sodium Potassium Chloride Carbon Dioxide BUN Creatinine Glucose POC Glucose 245 H 256 H Lactic Acid Calcium Magnesium AST Alkaline Phosphatase Total Creatine Kinase CK-MB (CK-2) Troponin T C-Reactive Protein Total Protein Albumin Cholesterol LDL Cholesterol Direct HDL Cholesterol Free T4 Urine WBC (Auto) Urine Creatinine Urine Total Protein Crossmatch 08/17/18 08/17/18 08/17/18 04:29 04:55 05:34 WBC RBC Hgb 8.2 L Hct 24.3 L MCV MCH MCHC RDW Lymph % (Auto) [place] % (Auto) Eos % (Auto) Lymph # [place] # Eos # Seg Neutrophils % Lymphocytes % (Manual) Seg Neutrophils # Lymphocytes # (Manual) PT INR APTT D-Dimer Heparin Anti-Xa Level POC ABG pH POC ABG pCO2 32.4 L POC ABG pO2 108 H Sodium Potassium Chloride Carbon Dioxide BUN Creatinine Glucose POC Glucose 268 H Lactic Acid Calcium Magnesium AST Alkaline Phosphatase Total Creatine Kinase CK-MB (CK-2) Troponin T C-Reactive Protein Total Protein Albumin Cholesterol LDL Cholesterol Direct HDL Cholesterol Free T4 Urine WBC (Auto) Urine Creatinine Urine Total Protein Crossmatch 08/17/18 08/17/18 08/17/18 11:54 13:44 17:24 WBC RBC Hgb Hct MCV MCH MCHC RDW Lymph % (Auto) [place] % (Auto) Eos % (Auto) Lymph # [place] # Eos # Seg Neutrophils % Lymphocytes % (Manual) Seg Neutrophils # Lymphocytes # (Manual) PT INR APTT D-Dimer Heparin Anti-Xa Level POC ABG pH POC ABG pCO2 32.7 L POC ABG pO2 142 H Sodium Potassium Chloride Carbon Dioxide BUN Creatinine Glucose POC Glucose 295 H 283 H Lactic Acid Calcium Magnesium AST Alkaline Phosphatase Total Creatine Kinase CK-MB (CK-2) Troponin T C-Reactive Protein Total Protein Albumin Cholesterol LDL Cholesterol Direct HDL Cholesterol Free T4 Urine WBC (Auto) Urine Creatinine Urine Total Protein Crossmatch 08/18/18 08/18/18 08/18/18 00:05 00:59 04:15 WBC RBC Hgb Hct MCV MCH MCHC RDW Lymph % (Auto) [place] % (Auto) Eos % (Auto) Lymph # [place] # Eos # Seg Neutrophils % Lymphocytes % (Manual) Seg Neutrophils # Lymphocytes # (Manual) PT INR APTT D-Dimer Heparin Anti-Xa Level POC ABG pH POC ABG pCO2 POC ABG pO2 115 H Sodium Potassium Chloride Carbon Dioxide BUN Creatinine Glucose POC Glucose 247 H 251 H Lactic Acid Calcium Magnesium AST Alkaline Phosphatase Total Creatine Kinase CK-MB (CK-2) Troponin T C-Reactive Protein Total Protein Albumin Cholesterol LDL Cholesterol Direct HDL Cholesterol Free T4 Urine WBC (Auto) Urine Creatinine Urine Total Protein Crossmatch 08/18/18 08/18/18 08/18/18 05:02 12:20 17:51 WBC RBC Hgb Hct MCV MCH MCHC RDW Lymph % (Auto) [place] % (Auto) Eos % (Auto) Lymph # [place] # Eos # Seg Neutrophils % Lymphocytes % (Manual) Seg Neutrophils # Lymphocytes # (Manual) PT INR APTT D-Dimer Heparin Anti-Xa Level POC ABG pH POC ABG pCO2 POC ABG pO2 Sodium Potassium Chloride Carbon Dioxide BUN Creatinine Glucose POC Glucose 282 H 209 H 261 H Lactic Acid Calcium Magnesium AST Alkaline Phosphatase Total Creatine Kinase CK-MB (CK-2) Troponin T C-Reactive Protein Total Protein Albumin Cholesterol LDL Cholesterol Direct HDL Cholesterol Free T4 Urine WBC (Auto) Urine Creatinine Urine Total Protein Crossmatch 08/18/18 08/19/18 08/19/18 23:30 04:54 05:16 WBC RBC 2.62 L Hgb 7.5 L Hct 23.1 L MCV MCH MCHC RDW 18.1 H Lymph % (Auto) [place] % (Auto) Eos % (Auto) Lymph # [place] # Eos # Seg Neutrophils % Lymphocytes % (Manual) Seg Neutrophils # Lymphocytes # (Manual) PT INR APTT D-Dimer Heparin Anti-Xa Level POC ABG pH POC ABG pCO2 POC ABG pO2 58 L Sodium Potassium Chloride Carbon Dioxide BUN Creatinine Glucose POC Glucose 231 H Lactic Acid Calcium Magnesium AST Alkaline Phosphatase Total Creatine Kinase CK-MB (CK-2) Troponin T C-Reactive Protein Total Protein Albumin Cholesterol LDL Cholesterol Direct HDL Cholesterol Free T4 Urine WBC (Auto) Urine Creatinine Urine Total Protein Crossmatch 08/19/18 08/19/18 08/19/18 05:16 05:40 11:56 WBC RBC Hgb Hct MCV MCH MCHC RDW Lymph % (Auto) [place] % (Auto) Eos % (Auto) Lymph # [place] # Eos # Seg Neutrophils % Lymphocytes % (Manual) Seg Neutrophils # Lymphocytes # (Manual) PT INR APTT D-Dimer Heparin Anti-Xa Level POC ABG pH POC ABG pCO2 POC ABG pO2 Sodium 152 H D Potassium Chloride 118.7 H Carbon Dioxide BUN 38 H Creatinine Glucose 220 H POC Glucose 227 H 213 H Lactic Acid Calcium 8.1 L D Magnesium AST Alkaline Phosphatase Total Creatine Kinase CK-MB (CK-2) Troponin T C-Reactive Protein Total Protein Albumin Cholesterol LDL Cholesterol Direct HDL Cholesterol Free T4 Urine WBC (Auto) Urine Creatinine Urine Total Protein Crossmatch 08/19/18 08/19/18 08/20/18 18:37 23:32 04:38 WBC RBC Hgb Hct MCV MCH MCHC RDW Lymph % (Auto) [place] % (Auto) Eos % (Auto) Lymph # [place] # Eos # Seg Neutrophils % Lymphocytes % (Manual) Seg Neutrophils # Lymphocytes # (Manual) PT INR APTT D-Dimer Heparin Anti-Xa Level POC ABG pH POC ABG pCO2 POC ABG pO2 140 H Sodium Potassium Chloride Carbon Dioxide BUN Creatinine Glucose POC Glucose 227 H 245 H Lactic Acid Calcium Magnesium AST Alkaline Phosphatase Total Creatine Kinase CK-MB (CK-2) Troponin T C-Reactive Protein Total Protein Albumin Cholesterol LDL Cholesterol Direct HDL Cholesterol Free T4 Urine WBC (Auto) Urine Creatinine Urine Total Protein Crossmatch 08/20/18 08/20/18 08/20/18 05:31 05:37 05:37 WBC RBC 2.60 L Hgb 7.5 L Hct 22.9 L MCV MCH MCHC RDW 18.4 H Lymph % (Auto) [place] % (Auto) Eos % (Auto) Lymph # [place] # Eos # Seg Neutrophils % Lymphocytes % (Manual) Seg Neutrophils # Lymphocytes # (Manual) PT INR APTT D-Dimer Heparin Anti-Xa Level POC ABG pH POC ABG pCO2 POC ABG pO2 Sodium 150 H Potassium Chloride 115.6 H Carbon Dioxide BUN 38 H Creatinine Glucose 276 H POC Glucose 266 H Lactic Acid Calcium 7.9 L Magnesium AST Alkaline Phosphatase Total Creatine Kinase CK-MB (CK-2) Troponin T C-Reactive Protein Total Protein Albumin Cholesterol LDL Cholesterol Direct HDL Cholesterol Free T4 Urine WBC (Auto) Urine Creatinine Urine Total Protein Crossmatch 08/20/18 08/20/18 08/20/18 14:01 18:20 23:11 WBC RBC Hgb Hct MCV MCH MCHC RDW Lymph % (Auto) [place] % (Auto) Eos % (Auto) Lymph # [place] # Eos # Seg Neutrophils % Lymphocytes % (Manual) Seg Neutrophils # Lymphocytes # (Manual) PT INR APTT D-Dimer Heparin Anti-Xa Level POC ABG pH POC ABG pCO2 POC ABG pO2 Sodium Potassium Chloride Carbon Dioxide BUN Creatinine Glucose POC Glucose 305 H 271 H 218 H Lactic Acid Calcium Magnesium AST Alkaline Phosphatase Total Creatine Kinase CK-MB (CK-2) Troponin T C-Reactive Protein Total Protein Albumin Cholesterol LDL Cholesterol Direct HDL Cholesterol Free T4 Urine WBC (Auto) Urine Creatinine Urine Total Protein Crossmatch 08/21/18 08/21/18 08/21/18 04:41 04:41 06:20 WBC RBC 2.65 L Hgb 7.6 L Hct 23.3 L MCV MCH MCHC RDW 19.1 H Lymph % (Auto) [place] % (Auto) Eos % (Auto) Lymph # [place] # Eos # Seg Neutrophils % Lymphocytes % (Manual) Seg Neutrophils # Lymphocytes # (Manual) PT INR APTT D-Dimer Heparin Anti-Xa Level POC ABG pH POC ABG pCO2 POC ABG pO2 Sodium 150 H Potassium Chloride 117.8 H Carbon Dioxide BUN 37 H Creatinine Glucose 233 H POC Glucose 262 H Lactic Acid Calcium 7.9 L Magnesium AST Alkaline Phosphatase Total Creatine Kinase CK-MB (CK-2) Troponin T C-Reactive Protein Total Protein Albumin Cholesterol LDL Cholesterol Direct HDL Cholesterol Free T4 Urine WBC (Auto) Urine Creatinine Urine Total Protein Crossmatch 08/21/18 08/21/18 08/21/18 10:18 12:04 12:36 WBC RBC Hgb Hct MCV MCH MCHC RDW Lymph % (Auto) [place] % (Auto) Eos % (Auto) Lymph # [place] # Eos # Seg Neutrophils % Lymphocytes % (Manual) Seg Neutrophils # Lymphocytes # (Manual) PT INR APTT D-Dimer Heparin Anti-Xa Level POC ABG pH POC ABG pCO2 POC ABG pO2 Sodium Potassium Chloride Carbon Dioxide BUN Creatinine Glucose POC Glucose 256 H 245 H 255 H Lactic Acid Calcium Magnesium AST Alkaline Phosphatase Total Creatine Kinase CK-MB (CK-2) Troponin T C-Reactive Protein Total Protein Albumin Cholesterol LDL Cholesterol Direct HDL Cholesterol Free T4 Urine WBC (Auto) Urine Creatinine Urine Total Protein Crossmatch 08/21/18 08/21/18 08/22/18 17:36 23:29 05:01 WBC RBC Hgb Hct MCV MCH MCHC RDW Lymph % (Auto) [place] % (Auto) Eos % (Auto) Lymph # [place] # Eos # Seg Neutrophils % Lymphocytes % (Manual) Seg Neutrophils # Lymphocytes # (Manual) PT INR APTT D-Dimer Heparin Anti-Xa Level POC ABG pH 7.466 H POC ABG pCO2 33.8 L POC ABG pO2 111 H Sodium Potassium Chloride Carbon Dioxide BUN Creatinine Glucose POC Glucose 263 H 268 H Lactic Acid Calcium Magnesium AST Alkaline Phosphatase Total Creatine Kinase CK-MB (CK-2) Troponin T C-Reactive Protein Total Protein Albumin Cholesterol LDL Cholesterol Direct HDL Cholesterol Free T4 Urine WBC (Auto) Urine Creatinine Urine Total Protein Crossmatch 08/22/18 08/22/18 08/22/18 05:05 12:05 12:15 WBC RBC Hgb Hct MCV MCH MCHC RDW Lymph % (Auto) [place] % (Auto) Eos % (Auto) Lymph # [place] # Eos # Seg Neutrophils % Lymphocytes % (Manual) Seg Neutrophils # Lymphocytes # (Manual) PT INR APTT D-Dimer Heparin Anti-Xa Level POC ABG pH POC ABG pCO2 POC ABG pO2 Sodium 147 H Potassium Chloride 113.2 H Carbon Dioxide BUN 36 H Creatinine Glucose 249 H POC Glucose 256 H 228 H Lactic Acid Calcium 8.2 L Magnesium AST Alkaline Phosphatase Total Creatine Kinase CK-MB (CK-2) Troponin T C-Reactive Protein Total Protein Albumin Cholesterol LDL Cholesterol Direct HDL Cholesterol Free T4 Urine WBC (Auto) Urine Creatinine Urine Total Protein Crossmatch 08/22/18 08/23/18 08/23/18 17:30 00:03 05:05 WBC RBC Hgb Hct MCV MCH MCHC RDW Lymph % (Auto) [place] % (Auto) Eos % (Auto) Lymph # [place] # Eos # Seg Neutrophils % Lymphocytes % (Manual) Seg Neutrophils # Lymphocytes # (Manual) PT INR APTT D-Dimer Heparin Anti-Xa Level POC ABG pH POC ABG pCO2 POC ABG pO2 Sodium Potassium Chloride Carbon Dioxide BUN Creatinine Glucose POC Glucose 291 H 259 H 247 H Lactic Acid Calcium Magnesium AST Alkaline Phosphatase Total Creatine Kinase CK-MB (CK-2) Troponin T C-Reactive Protein Total Protein Albumin Cholesterol LDL Cholesterol Direct HDL Cholesterol Free T4 Urine WBC (Auto) Urine Creatinine Urine Total Protein Crossmatch 08/23/18 08/23/18 08/23/18 05:14 12:29 17:21 WBC RBC Hgb Hct MCV MCH MCHC RDW Lymph % (Auto) [place] % (Auto) Eos % (Auto) Lymph # [place] # Eos # Seg Neutrophils % Lymphocytes % (Manual) Seg Neutrophils # Lymphocytes # (Manual) PT INR APTT D-Dimer Heparin Anti-Xa Level POC ABG pH POC ABG pCO2 POC ABG pO2 Sodium Potassium Chloride Carbon Dioxide BUN Creatinine Glucose POC Glucose 208 H 138 H 175 H Lactic Acid Calcium Magnesium AST Alkaline Phosphatase Total Creatine Kinase CK-MB (CK-2) Troponin T C-Reactive Protein Total Protein Albumin Cholesterol LDL Cholesterol Direct HDL Cholesterol Free T4 Urine WBC (Auto) Urine Creatinine Urine Total Protein Crossmatch 08/23/18 08/24/18 08/24/18 23:36 01:00 05:50 WBC RBC 2.92 L 2.90 L Hgb 8.3 L 8.2 L Hct 25.4 L 25.2 L MCV MCH MCHC RDW 18.9 H 18.6 H Lymph % (Auto) [place] % (Auto) 9.2 H Eos % (Auto) Lymph # [place] # Eos # Seg Neutrophils % Lymphocytes % (Manual) Seg Neutrophils # Lymphocytes # (Manual) PT INR APTT D-Dimer Heparin Anti-Xa Level POC ABG pH POC ABG pCO2 POC ABG pO2 Sodium Potassium Chloride Carbon Dioxide BUN Creatinine Glucose POC Glucose 163 H Lactic Acid Calcium Magnesium AST Alkaline Phosphatase Total Creatine Kinase CK-MB (CK-2) Troponin T C-Reactive Protein Total Protein Albumin Cholesterol LDL Cholesterol Direct HDL Cholesterol Free T4 Urine WBC (Auto) Urine Creatinine Urine Total Protein Crossmatch 08/24/18 08/24/18 08/24/18 05:50 12:26 18:37 WBC RBC Hgb Hct MCV MCH MCHC RDW Lymph % (Auto) [place] % (Auto) Eos % (Auto) Lymph # [place] # Eos # Seg Neutrophils % Lymphocytes % (Manual) Seg Neutrophils # Lymphocytes # (Manual) PT INR APTT D-Dimer Heparin Anti-Xa Level POC ABG pH POC ABG pCO2 POC ABG pO2 Sodium 147 H Potassium Chloride 113.6 H Carbon Dioxide BUN 33 H Creatinine Glucose 210 H POC Glucose 223 H 166 H Lactic Acid Calcium 8.3 L Magnesium AST Alkaline Phosphatase Total Creatine Kinase CK-MB (CK-2) Troponin T C-Reactive Protein Total Protein Albumin Cholesterol LDL Cholesterol Direct HDL Cholesterol Free T4 Urine WBC (Auto) Urine Creatinine Urine Total Protein Crossmatch 08/24/18 08/25/18 08/25/18 23:47 04:55 04:55 WBC RBC 2.94 L Hgb 8.4 L Hct 25.1 L MCV MCH MCHC RDW 18.2 H Lymph % (Auto) [place] % (Auto) Eos % (Auto) Lymph # [place] # Eos # Seg Neutrophils % Lymphocytes % (Manual) Seg Neutrophils # Lymphocytes # (Manual) PT INR APTT D-Dimer Heparin Anti-Xa Level POC ABG pH POC ABG pCO2 POC ABG pO2 Sodium Potassium Chloride 110.2 H Carbon Dioxide BUN 30 H Creatinine Glucose POC Glucose 126 H Lactic Acid Calcium 8.1 L Magnesium AST Alkaline Phosphatase Total Creatine Kinase CK-MB (CK-2) Troponin T C-Reactive Protein Total Protein Albumin Cholesterol LDL Cholesterol Direct HDL Cholesterol Free T4 Urine WBC (Auto) Urine Creatinine Urine Total Protein Crossmatch 08/25/18 08/26/18 08/26/18 12:40 04:39 04:39 WBC RBC 2.96 L Hgb 8.3 L Hct 25.7 L MCV MCH MCHC RDW 18.2 H Lymph % (Auto) 10.5 L [place] % (Auto) 9.3 H Eos % (Auto) Lymph # 0.8 L [place] # Eos # Seg Neutrophils % 77.0 H Lymphocytes % (Manual) Seg Neutrophils # Lymphocytes # (Manual) PT INR APTT D-Dimer Heparin Anti-Xa Level POC ABG pH POC ABG pCO2 POC ABG pO2 Sodium 147 H Potassium Chloride 113.5 H Carbon Dioxide BUN 27 H Creatinine 0.7 L Glucose 106 H POC Glucose Lactic Acid Calcium 8.0 L Magnesium AST Alkaline Phosphatase Total Creatine Kinase CK-MB (CK-2) Troponin T C-Reactive Protein Total Protein Albumin Cholesterol LDL Cholesterol Direct HDL Cholesterol Free T4 Urine WBC (Auto) > 182.0 H Urine Creatinine Urine Total Protein Crossmatch 08/26/18 08/26/18 08/26/18 05:27 09:00 09:54 WBC RBC Hgb Hct MCV MCH MCHC RDW Lymph % (Auto) [place] % (Auto) Eos % (Auto) Lymph # [place] # Eos # Seg Neutrophils % Lymphocytes % (Manual) Seg Neutrophils # Lymphocytes # (Manual) PT INR APTT D-Dimer Heparin Anti-Xa Level POC ABG pH POC ABG pCO2 POC ABG pO2 Sodium Potassium Chloride Carbon Dioxide BUN Creatinine Glucose POC Glucose 120 H 170 H Lactic Acid Calcium Magnesium AST Alkaline Phosphatase Total Creatine Kinase CK-MB (CK-2) Troponin T C-Reactive Protein Total Protein Albumin Cholesterol LDL Cholesterol Direct HDL Cholesterol Free T4 0.51 L Urine WBC (Auto) Urine Creatinine Urine Total Protein Crossmatch 0508/26/18 08/27/18 14:52 17:50 06:30 WBC RBC Hgb Hct MCV MCH MCHC RDW Lymph % (Auto) [place] % (Auto) Eos % (Auto) Lymph # [place] # Eos # Seg Neutrophils % Lymphocytes % (Manual) Seg Neutrophils # Lymphocytes # (Manual) PT INR APTT D-Dimer Heparin Anti-Xa Level POC ABG pH POC ABG pCO2 POC ABG pO2 Sodium 150 H Potassium Chloride 114.8 H Carbon Dioxide BUN 24 H Creatinine 0.7 L Glucose 131 H POC Glucose 166 H 107 H Lactic Acid Calcium 7.8 L Magnesium AST Alkaline Phosphatase Total Creatine Kinase CK-MB (CK-2) Troponin T C-Reactive Protein Total Protein Albumin Cholesterol LDL Cholesterol Direct HDL Cholesterol Free T4 Urine WBC (Auto) Urine Creatinine Urine Total Protein Crossmatch 08/27/18 08/27/18 08/27/18 08:22 14:20 16:06 WBC RBC Hgb Hct MCV MCH MCHC RDW Lymph % (Auto) [place] % (Auto) Eos % (Auto) Lymph # [place] # Eos # Seg Neutrophils % Lymphocytes % (Manual) Seg Neutrophils # Lymphocytes # (Manual) PT INR APTT D-Dimer Heparin Anti-Xa Level POC ABG pH POC ABG pCO2 POC ABG pO2 Sodium Potassium Chloride Carbon Dioxide BUN Creatinine Glucose POC Glucose 112 H 151 H 158 H Lactic Acid Calcium Magnesium AST Alkaline Phosphatase Total Creatine Kinase CK-MB (CK-2) Troponin T C-Reactive Protein Total Protein Albumin Cholesterol LDL Cholesterol Direct HDL Cholesterol Free T4 Urine WBC (Auto) Urine Creatinine Urine Total Protein Crossmatch 08/27/18 08/27/18 08/28/18 20:09 21:25 02:03 WBC RBC Hgb Hct MCV MCH MCHC RDW Lymph % (Auto) [place] % (Auto) Eos % (Auto) Lymph # [place] # Eos # Seg Neutrophils % Lymphocytes % (Manual) Seg Neutrophils # Lymphocytes # (Manual) PT INR APTT D-Dimer Heparin Anti-Xa Level POC ABG pH POC ABG pCO2 POC ABG pO2 130 H Sodium Potassium Chloride Carbon Dioxide BUN Creatinine Glucose POC Glucose 226 H 250 H Lactic Acid Calcium Magnesium AST Alkaline Phosphatase Total Creatine Kinase CK-MB (CK-2) Troponin T C-Reactive Protein Total Protein Albumin Cholesterol LDL Cholesterol Direct HDL Cholesterol Free T4 Urine WBC (Auto) Urine Creatinine Urine Total Protein Crossmatch 08/28/18 08/28/18 08/28/18 05:56 07:15 13:17 WBC RBC Hgb Hct MCV MCH MCHC RDW Lymph % (Auto) [place] % (Auto) Eos % (Auto) Lymph # [place] # Eos # Seg Neutrophils % Lymphocytes % (Manual) Seg Neutrophils # Lymphocytes # (Manual) PT INR APTT D-Dimer Heparin Anti-Xa Level POC ABG pH POC ABG pCO2 POC ABG pO2 Sodium Potassium Chloride Carbon Dioxide BUN Creatinine Glucose 198 H POC Glucose 221 H 188 H Lactic Acid Calcium 7.7 L Magnesium AST Alkaline Phosphatase Total Creatine Kinase CK-MB (CK-2) Troponin T C-Reactive Protein Total Protein Albumin Cholesterol LDL Cholesterol Direct HDL Cholesterol Free T4 Urine WBC (Auto) Urine Creatinine Urine Total Protein Crossmatch 08/28/18 08/28/18 08/28/18 15:53 18:12 22:35 WBC RBC Hgb Hct MCV MCH MCHC RDW Lymph % (Auto) [place] % (Auto) Eos % (Auto) Lymph # [place] # Eos # Seg Neutrophils % Lymphocytes % (Manual) Seg Neutrophils # Lymphocytes # (Manual) PT INR APTT D-Dimer Heparin Anti-Xa Level POC ABG pH 7.457 H POC ABG pCO2 POC ABG pO2 Sodium Potassium Chloride Carbon Dioxide BUN Creatinine Glucose POC Glucose 197 H 225 H Lactic Acid Calcium Magnesium AST Alkaline Phosphatase Total Creatine Kinase CK-MB (CK-2) Troponin T C-Reactive Protein Total Protein Albumin Cholesterol LDL Cholesterol Direct HDL Cholesterol Free T4 Urine WBC (Auto) Urine Creatinine Urine Total Protein Crossmatch 08/29/18 08/29/18 08/29/18 03:04 10:47 14:25 WBC RBC Hgb Hct MCV MCH MCHC RDW Lymph % (Auto) [place] % (Auto) Eos % (Auto) Lymph # [place] # Eos # Seg Neutrophils % Lymphocytes % (Manual) Seg Neutrophils # Lymphocytes # (Manual) PT INR APTT D-Dimer Heparin Anti-Xa Level POC ABG pH POC ABG pCO2 POC ABG pO2 Sodium Potassium Chloride Carbon Dioxide BUN Creatinine Glucose POC Glucose 223 H 371 H 266 H Lactic Acid Calcium Magnesium AST Alkaline Phosphatase Total Creatine Kinase CK-MB (CK-2) Troponin T C-Reactive Protein Total Protein Albumin Cholesterol LDL Cholesterol Direct HDL Cholesterol Free T4 Urine WBC (Auto) Urine Creatinine Urine Total Protein Crossmatch 08/29/18 08/29/18 08/29/18 16:45 17:36 21:33 WBC RBC Hgb Hct MCV MCH MCHC RDW Lymph % (Auto) [place] % (Auto) Eos % (Auto) Lymph # [place] # Eos # Seg Neutrophils % Lymphocytes % (Manual) Seg Neutrophils # Lymphocytes # (Manual) PT INR APTT D-Dimer Heparin Anti-Xa Level POC ABG pH POC ABG pCO2 POC ABG pO2 118 H Sodium Potassium Chloride Carbon Dioxide BUN Creatinine Glucose POC Glucose 253 H 204 H Lactic Acid Calcium Magnesium AST Alkaline Phosphatase Total Creatine Kinase CK-MB (CK-2) Troponin T C-Reactive Protein Total Protein Albumin Cholesterol LDL Cholesterol Direct HDL Cholesterol Free T4 Urine WBC (Auto) Urine Creatinine Urine Total Protein Crossmatch 08/30/18 08/30/18 08/30/18 01:33 05:27 05:40 WBC RBC 3.12 L Hgb 8.5 L Hct 25.9 L MCV 83 L MCH 27 L MCHC RDW 18.3 H Lymph % (Auto) [place] % (Auto) 7.8 H Eos % (Auto) 8.8 H Lymph # [place] # Eos # 0.6 H Seg Neutrophils % Lymphocytes % (Manual) Seg Neutrophils # Lymphocytes # (Manual) PT INR APTT D-Dimer Heparin Anti-Xa Level POC ABG pH POC ABG pCO2 POC ABG pO2 Sodium Potassium Chloride Carbon Dioxide BUN Creatinine Glucose POC Glucose 157 H 178 H Lactic Acid Calcium Magnesium AST Alkaline Phosphatase Total Creatine Kinase CK-MB (CK-2) Troponin T C-Reactive Protein Total Protein Albumin Cholesterol LDL Cholesterol Direct HDL Cholesterol Free T4 Urine WBC (Auto) Urine Creatinine Urine Total Protein Crossmatch 08/30/18 08/30/18 08/30/18 05:40 09:28 11:41 WBC RBC Hgb Hct MCV MCH MCHC RDW Lymph % (Auto) [place] % (Auto) Eos % (Auto) Lymph # [place] # Eos # Seg Neutrophils % Lymphocytes % (Manual) Seg Neutrophils # Lymphocytes # (Manual) PT INR APTT D-Dimer Heparin Anti-Xa Level POC ABG pH POC ABG pCO2 POC ABG pO2 Sodium Potassium Chloride Carbon Dioxide BUN Creatinine 0.7 L Glucose 189 H POC Glucose 216 H 257 H Lactic Acid Calcium 8.2 L Magnesium AST 50 H Alkaline Phosphatase 158 H Total Creatine Kinase CK-MB (CK-2) Troponin T C-Reactive Protein Total Protein Albumin 1.6 L Cholesterol LDL Cholesterol Direct HDL Cholesterol Free T4 Urine WBC (Auto) Urine Creatinine Urine Total Protein Crossmatch 08/30/18 08/30/18 08/30/18 14:34 17:07 21:56 WBC RBC Hgb Hct MCV MCH MCHC RDW Lymph % (Auto) [place] % (Auto) Eos % (Auto) Lymph # [place] # Eos # Seg Neutrophils % Lymphocytes % (Manual) Seg Neutrophils # Lymphocytes # (Manual) PT INR APTT D-Dimer Heparin Anti-Xa Level POC ABG pH POC ABG pCO2 POC ABG pO2 Sodium Potassium Chloride Carbon Dioxide BUN Creatinine Glucose POC Glucose 263 H 263 H 234 H Lactic Acid Calcium Magnesium AST Alkaline Phosphatase Total Creatine Kinase CK-MB (CK-2) Troponin T C-Reactive Protein Total Protein Albumin Cholesterol LDL Cholesterol Direct HDL Cholesterol Free T4 Urine WBC (Auto) Urine Creatinine Urine Total Protein Crossmatch 08/31/18 08/31/18 08/31/18 02:02 05:29 09:24 WBC RBC Hgb Hct MCV MCH MCHC RDW Lymph % (Auto) [place] % (Auto) Eos % (Auto) Lymph # [place] # Eos # Seg Neutrophils % Lymphocytes % (Manual) Seg Neutrophils # Lymphocytes # (Manual) PT INR APTT D-Dimer Heparin Anti-Xa Level POC ABG pH POC ABG pCO2 POC ABG pO2 Sodium Potassium Chloride Carbon Dioxide BUN Creatinine Glucose POC Glucose 151 H 156 H 107 H Lactic Acid Calcium Magnesium AST Alkaline Phosphatase Total Creatine Kinase CK-MB (CK-2) Troponin T C-Reactive Protein Total Protein Albumin Cholesterol LDL Cholesterol Direct HDL Cholesterol Free T4 Urine WBC (Auto) Urine Creatinine Urine Total Protein Crossmatch 08/31/18 08/31/18 08/31/18 13:51 17:28 21:40 WBC RBC Hgb Hct MCV MCH MCHC RDW Lymph % (Auto) [place] % (Auto) Eos % (Auto) Lymph # [place] # Eos # Seg Neutrophils % Lymphocytes % (Manual) Seg Neutrophils # Lymphocytes # (Manual) PT INR APTT D-Dimer Heparin Anti-Xa Level POC ABG pH POC ABG pCO2 POC ABG pO2 Sodium Potassium Chloride Carbon Dioxide BUN Creatinine Glucose POC Glucose 170 H 239 H 209 H Lactic Acid Calcium Magnesium AST Alkaline Phosphatase Total Creatine Kinase CK-MB (CK-2) Troponin T C-Reactive Protein Total Protein Albumin Cholesterol LDL Cholesterol Direct HDL Cholesterol Free T4 Urine WBC (Auto) Urine Creatinine Urine Total Protein Crossmatch 08/31/18 08/31/18 09/01/18 22:25 22:25 01:47 WBC RBC Hgb Hct MCV MCH MCHC RDW Lymph % (Auto) [place] % (Auto) Eos % (Auto) Lymph # [place] # Eos # Seg Neutrophils % Lymphocytes % (Manual) Seg Neutrophils # Lymphocytes # (Manual) PT INR APTT D-Dimer Heparin Anti-Xa Level POC ABG pH POC ABG pCO2 45.6 H POC ABG pO2 135 H Sodium Potassium Chloride Carbon Dioxide BUN Creatinine Glucose POC Glucose 208 H 223 H Lactic Acid Calcium Magnesium AST Alkaline Phosphatase Total Creatine Kinase CK-MB (CK-2) Troponin T C-Reactive Protein Total Protein Albumin Cholesterol LDL Cholesterol Direct HDL Cholesterol Free T4 Urine WBC (Auto) Urine Creatinine Urine Total Protein Crossmatch 09/01/18 09/01/18 09/01/18 05:18 05:19 05:19 WBC RBC 3.08 L Hgb 8.5 L Hct 25.6 L MCV 83 L MCH MCHC RDW 18.7 H Lymph % (Auto) [place] % (Auto) 7.9 H Eos % (Auto) 6.1 H Lymph # [place] # Eos # Seg Neutrophils % Lymphocytes % (Manual) Seg Neutrophils # Lymphocytes # (Manual) PT INR APTT D-Dimer Heparin Anti-Xa Level POC ABG pH POC ABG pCO2 POC ABG pO2 Sodium Potassium Chloride 107.9 H Carbon Dioxide BUN 21 H Creatinine 0.7 L Glucose 188 H POC Glucose 236 H Lactic Acid Calcium Magnesium AST Alkaline Phosphatase Total Creatine Kinase CK-MB (CK-2) Troponin T C-Reactive Protein Total Protein Albumin Cholesterol LDL Cholesterol Direct HDL Cholesterol Free T4 Urine WBC (Auto) Urine Creatinine Urine Total Protein Crossmatch 09/01/18 09/01/18 09/01/18 09:29 14:25 18:20 WBC RBC Hgb Hct MCV MCH MCHC RDW Lymph % (Auto) [place] % (Auto) Eos % (Auto) Lymph # [place] # Eos # Seg Neutrophils % Lymphocytes % (Manual) Seg Neutrophils # Lymphocytes # (Manual) PT INR APTT D-Dimer Heparin Anti-Xa Level POC ABG pH POC ABG pCO2 POC ABG pO2 Sodium Potassium Chloride Carbon Dioxide BUN Creatinine Glucose POC Glucose 231 H 294 H 215 H Lactic Acid Calcium Magnesium AST Alkaline Phosphatase Total Creatine Kinase CK-MB (CK-2) Troponin T C-Reactive Protein Total Protein Albumin Cholesterol LDL Cholesterol Direct HDL Cholesterol Free T4 Urine WBC (Auto) Urine Creatinine Urine Total Protein Crossmatch 09/01/18 09/02/18 09/02/18 21:21 03:28 05:25 WBC RBC Hgb Hct MCV MCH MCHC RDW Lymph % (Auto) [place] % (Auto) Eos % (Auto) Lymph # [place] # Eos # Seg Neutrophils % Lymphocytes % (Manual) Seg Neutrophils # Lymphocytes # (Manual) PT INR APTT D-Dimer Heparin Anti-Xa Level POC ABG pH POC ABG pCO2 POC ABG pO2 Sodium Potassium Chloride Carbon Dioxide BUN Creatinine Glucose POC Glucose 236 H 194 H 183 H Lactic Acid Calcium Magnesium AST Alkaline Phosphatase Total Creatine Kinase CK-MB (CK-2) Troponin T C-Reactive Protein Total Protein Albumin Cholesterol LDL Cholesterol Direct HDL Cholesterol Free T4 Urine WBC (Auto) Urine Creatinine Urine Total Protein Crossmatch 09/02/18 09/02/18 09/02/18 09:16 15:30 17:20 WBC RBC Hgb Hct MCV MCH MCHC RDW Lymph % (Auto) [place] % (Auto) Eos % (Auto) Lymph # [place] # Eos # Seg Neutrophils % Lymphocytes % (Manual) Seg Neutrophils # Lymphocytes # (Manual) PT INR APTT D-Dimer Heparin Anti-Xa Level POC ABG pH POC ABG pCO2 POC ABG pO2 Sodium Potassium Chloride Carbon Dioxide BUN Creatinine Glucose POC Glucose 251 H 303 H 316 H Lactic Acid Calcium Magnesium AST Alkaline Phosphatase Total Creatine Kinase CK-MB (CK-2) Troponin T C-Reactive Protein Total Protein Albumin Cholesterol LDL Cholesterol Direct HDL Cholesterol Free T4 Urine WBC (Auto) Urine Creatinine Urine Total Protein Crossmatch 09/02/18 09/03/18 09/03/18 21:25 03:32 05:20 WBC RBC Hgb Hct MCV MCH MCHC RDW Lymph % (Auto) [place] % (Auto) Eos % (Auto) Lymph # [place] # Eos # Seg Neutrophils % Lymphocytes % (Manual) Seg Neutrophils # Lymphocytes # (Manual) PT INR APTT D-Dimer Heparin Anti-Xa Level POC ABG pH POC ABG pCO2 POC ABG pO2 Sodium Potassium Chloride Carbon Dioxide BUN Creatinine Glucose POC Glucose 242 H 305 H 225 H Lactic Acid Calcium Magnesium AST Alkaline Phosphatase Total Creatine Kinase CK-MB (CK-2) Troponin T C-Reactive Protein Total Protein Albumin Cholesterol LDL Cholesterol Direct HDL Cholesterol Free T4 Urine WBC (Auto) Urine Creatinine Urine Total Protein Crossmatch 09/03/18 09/03/18 09/03/18 07:52 07:52 10:19 WBC RBC 3.29 L Hgb 9.0 L Hct 27.3 L MCV 83 L MCH 27 L MCHC RDW 18.4 H Lymph % (Auto) [place] % (Auto) Eos % (Auto) Lymph # [place] # Eos # Seg Neutrophils % Lymphocytes % (Manual) Seg Neutrophils # Lymphocytes # (Manual) PT INR APTT D-Dimer Heparin Anti-Xa Level POC ABG pH POC ABG pCO2 POC ABG pO2 Sodium Potassium Chloride Carbon Dioxide BUN 23 H Creatinine Glucose 205 H POC Glucose 228 H Lactic Acid Calcium 7.9 L Magnesium AST Alkaline Phosphatase Total Creatine Kinase CK-MB (CK-2) Troponin T C-Reactive Protein Total Protein Albumin Cholesterol LDL Cholesterol Direct HDL Cholesterol Free T4 Urine WBC (Auto) Urine Creatinine Urine Total Protein Crossmatch 09/03/18 09/03/18 09/03/18 13:42 17:22 21:33 WBC RBC Hgb Hct MCV MCH MCHC RDW Lymph % (Auto) [place] % (Auto) Eos % (Auto) Lymph # [place] # Eos # Seg Neutrophils % Lymphocytes % (Manual) Seg Neutrophils # Lymphocytes # (Manual) PT INR APTT D-Dimer Heparin Anti-Xa Level POC ABG pH POC ABG pCO2 POC ABG pO2 Sodium Potassium Chloride Carbon Dioxide BUN Creatinine Glucose POC Glucose 221 H 186 H 179 H Lactic Acid Calcium Magnesium AST Alkaline Phosphatase Total Creatine Kinase CK-MB (CK-2) Troponin T C-Reactive Protein Total Protein Albumin Cholesterol LDL Cholesterol Direct HDL Cholesterol Free T4 Urine WBC (Auto) Urine Creatinine Urine Total Protein Crossmatch 09/04/18 09/04/18 09/04/18 02:07 05:54 11:03 WBC RBC Hgb Hct MCV MCH MCHC RDW Lymph % (Auto) [place] % (Auto) Eos % (Auto) Lymph # [place] # Eos # Seg Neutrophils % Lymphocytes % (Manual) Seg Neutrophils # Lymphocytes # (Manual) PT INR APTT D-Dimer Heparin Anti-Xa Level POC ABG pH POC ABG pCO2 POC ABG pO2 Sodium Potassium Chloride Carbon Dioxide BUN Creatinine Glucose POC Glucose 174 H 171 H 181 H Lactic Acid Calcium Magnesium AST Alkaline Phosphatase Total Creatine Kinase CK-MB (CK-2) Troponin T C-Reactive Protein Total Protein Albumin Cholesterol LDL Cholesterol Direct HDL Cholesterol Free T4 Urine WBC (Auto) Urine Creatinine Urine Total Protein Crossmatch 09/04/18 09/04/18 09/04/18 14:59 18:24 21:50 WBC RBC Hgb Hct MCV MCH MCHC RDW Lymph % (Auto) [place] % (Auto) Eos % (Auto) Lymph # [place] # Eos # Seg Neutrophils % Lymphocytes % (Manual) Seg Neutrophils # Lymphocytes # (Manual) PT INR APTT D-Dimer Heparin Anti-Xa Level POC ABG pH POC ABG pCO2 POC ABG pO2 Sodium Potassium Chloride Carbon Dioxide BUN Creatinine Glucose POC Glucose 204 H 236 H 197 H Lactic Acid Calcium Magnesium AST Alkaline Phosphatase Total Creatine Kinase CK-MB (CK-2) Troponin T C-Reactive Protein Total Protein Albumin Cholesterol LDL Cholesterol Direct HDL Cholesterol Free T4 Urine WBC (Auto) Urine Creatinine Urine Total Protein Crossmatch 09/05/18 09/05/18 09/05/18 01:32 04:52 04:52 WBC RBC 3.16 L Hgb 8.7 L Hct 26.0 L MCV 82 L MCH MCHC RDW 18.9 H Lymph % (Auto) [place] % (Auto) Eos % (Auto) Lymph # [place] # Eos # Seg Neutrophils % Lymphocytes % (Manual) Seg Neutrophils # Lymphocytes # (Manual) PT INR APTT D-Dimer Heparin Anti-Xa Level POC ABG pH POC ABG pCO2 POC ABG pO2 Sodium Potassium Chloride 107.2 H Carbon Dioxide BUN 23 H Creatinine 0.7 L Glucose 215 H POC Glucose 210 H Lactic Acid Calcium 8.3 L Magnesium AST Alkaline Phosphatase Total Creatine Kinase CK-MB (CK-2) Troponin T C-Reactive Protein Total Protein Albumin Cholesterol LDL Cholesterol Direct HDL Cholesterol Free T4 Urine WBC (Auto) Urine Creatinine Urine Total Protein Crossmatch 09/05/18 09/05/18 09/05/18 05:36 10:26 13:11 WBC RBC Hgb Hct MCV MCH MCHC RDW Lymph % (Auto) [place] % (Auto) Eos % (Auto) Lymph # [place] # Eos # Seg Neutrophils % Lymphocytes % (Manual) Seg Neutrophils # Lymphocytes # (Manual) PT INR APTT D-Dimer Heparin Anti-Xa Level POC ABG pH POC ABG pCO2 POC ABG pO2 Sodium Potassium Chloride Carbon Dioxide BUN Creatinine Glucose POC Glucose 216 H 206 H 161 H Lactic Acid Calcium Magnesium AST Alkaline Phosphatase Total Creatine Kinase CK-MB (CK-2) Troponin T C-Reactive Protein Total Protein Albumin Cholesterol LDL Cholesterol Direct HDL Cholesterol Free T4 Urine WBC (Auto) Urine Creatinine Urine Total Protein Crossmatch 0609/05/18 09/05/18 18:27 18:32 22:05 WBC RBC Hgb Hct MCV MCH MCHC RDW Lymph % (Auto) [place] % (Auto) Eos % (Auto) Lymph # [place] # Eos # Seg Neutrophils % Lymphocytes % (Manual) Seg Neutrophils # Lymphocytes # (Manual) PT INR APTT D-Dimer Heparin Anti-Xa Level POC ABG pH 7.478 H POC ABG pCO2 POC ABG pO2 138 H Sodium Potassium Chloride Carbon Dioxide BUN Creatinine Glucose POC Glucose 154 H 149 H Lactic Acid Calcium Magnesium AST Alkaline Phosphatase Total Creatine Kinase CK-MB (CK-2) Troponin T C-Reactive Protein Total Protein Albumin Cholesterol LDL Cholesterol Direct HDL Cholesterol Free T4 Urine WBC (Auto) Urine Creatinine Urine Total Protein Crossmatch 09/06/18 09/06/18 09/06/18 04:40 08:30 10:06 WBC RBC Hgb Hct MCV MCH MCHC RDW Lymph % (Auto) [place] % (Auto) Eos % (Auto) Lymph # [place] # Eos # Seg Neutrophils % Lymphocytes % (Manual) Seg Neutrophils # Lymphocytes # (Manual) PT INR APTT D-Dimer Heparin Anti-Xa Level POC ABG pH POC ABG pCO2 POC ABG pO2 Sodium Potassium Chloride Carbon Dioxide BUN Creatinine Glucose POC Glucose 140 H 188 H 199 H Lactic Acid Calcium Magnesium AST Alkaline Phosphatase Total Creatine Kinase CK-MB (CK-2) Troponin T C-Reactive Protein Total Protein Albumin Cholesterol LDL Cholesterol Direct HDL Cholesterol Free T4 Urine WBC (Auto) Urine Creatinine Urine Total Protein Crossmatch 09/06/18 12:13 WBC RBC Hgb Hct MCV MCH MCHC RDW Lymph % (Auto) [place] % (Auto) Eos % (Auto) Lymph # [place] # Eos # Seg Neutrophils % Lymphocytes % (Manual) Seg Neutrophils # Lymphocytes # (Manual) PT INR APTT D-Dimer Heparin Anti-Xa Level POC ABG pH POC ABG pCO2 POC ABG pO2 Sodium Potassium Chloride Carbon Dioxide BUN Creatinine Glucose POC Glucose 177 H Lactic Acid Calcium Magnesium AST Alkaline Phosphatase Total Creatine Kinase CK-MB (CK-2) Troponin T C-Reactive Protein Total Protein Albumin Cholesterol LDL Cholesterol Direct HDL Cholesterol Free T4 Urine WBC (Auto) Urine Creatinine Urine Total Protein Crossmatch
--- NOTE | 2018-09-06 14:10 | Progress Note ---
Assessment and Plan Acute hypoxemic respiratory failure on chronic. Status post cardiac arrest. Seizure disorder with breakthrough seizures. History of diabetes. History of cerebrovascular accident. Oropharyngeal dysphagia. History of seizures. - get stat CXR and address - empiric diuresis (lasix 20 mg i.v. bid X 4 doses - begin solumedrol and benadryl along with his pepcid for angioedema - continue daytime t-piece trials as tolerated (rest on AC overnight tonight while we are addressing the angioedema syndrome) - resume PSV trials as tolerated (if fails t-piece) - prognosis for significant neurologic recovery to prior baseline (which per his is to be able to respond appropriately) is poor; his is not interested in decelerating care at this point - continue to avoid sedatives - prn ABG's & CXR's at this point - continue Keppra for seizures with prn ativan IV for breakthrough (now dosed at 500mg IV bid) - continue provigil - continue bronchodilators with routine trach care and pulmonary hygiene per RT - neurology evaluation noted and input appreciated - continue GI & VTE prophylaxis - continue to wean supplemental oxygen to keep O2 sats 88-90% - Lung protective strategies - VAP bundle addressed - Continue cardioprotective measures - Replete electrolytes as indicated - Continue to rest at night on full MVS - Monitor renal indices closely - Avoid nephrotoxic agents, adjust all medications for CrCL - Strict intake and output monitoring - continue enteral nutrition as tolerated - continue accuchecks with glycemic control per SSI for target glucose of 140- 180 mg/dL (Lantus re-introduced) - Maintenance of sleep -wake cycle modalities - Mobility as tolerated by hemodynamics - Influenza and pneumonia vaccination per protocol - discharge planning ongoing concurrently .... care plan discussed at length with in room again today PROGNOSIS: GUARDED CONDITION: CRITICAL CODE STATUS: FULL CODE The high probability of a clinically significant, sudden or life-threatening deterioration of the [respiratory, neurology, renal] system(s) required my full and direct attention, intervention and personal management. The aggregate critical care time was [40] minutes without overlap. Time includes spent on; [x] Data Review and interpretation [x] Patient assessment and monitoring of vital signs [x] Documentation [x] Medication orders and management Subjective Date of service: 09/06/18 Principal diagnosis: Acute hypoxemic resp failure; S/P cardiac arrest; Seizures; DM II; H/O CVA Interval history: Patient is seen today for: Acute hypoxemic respiratory failure on chronic; Status post cardiac arrest; Seizure disorder with breakthrough seizures; History of diabetes; History of cerebrovascular accident; Oropharyngeal dysphagia; History of seizures. Seen and examined at bedside; 24hour events reviewed; nursing and respiratory care staff consulted; no adverse overnight events reported to me; rested on MVS; tolerated T-piece well yesterday with good ventilation; no emesis or overt aspiration overnight; tracheal secretions have been bloody today and he is developing worsening dimitrios-orbital swelling as well as likely angioedema with tongue protrusion; no seizures Objective Vital Signs - 12hr 09/06/18 09/06/18 09/06/18 02:30 02:50 03:00 Temperature Pulse Rate 68 68 70 Pulse Rate [ 67 From Monitor] Respiratory 15 15 15 Rate Blood Pressure 122/53 145/63 O2 Sat by Pulse 100 100 100 Oximetry 09/06/18 09/06/18 09/06/18 03:23 03:30 04:00 Temperature Pulse Rate 65 69 69 Pulse Rate [ From Monitor] Respiratory 17 13 Rate Blood Pressure 145/63 147/71 153/63 O2 Sat by Pulse 100 100 100 Oximetry 09/06/18 09/06/18 09/06/18 04:30 04:40 05:00 Temperature 98.0 F Pulse Rate 63 65 67 Pulse Rate [ 66 From Monitor] Respiratory 15 15 12 Rate Blood Pressure 147/71 145/63 170/65 O2 Sat by Pulse 100 100 100 Oximetry 09/06/18 09/06/18 09/06/18 05:30 06:00 06:30 Temperature Pulse Rate 63 70 63 Pulse Rate [ From Monitor] Respiratory 14 14 12 Rate Blood Pressure 128/65 120/60 134/68 O2 Sat by Pulse 100 100 Oximetry 09/06/18 09/06/18 09/06/18 07:00 07:30 08:00 Temperature 98.2 F Pulse Rate 64 67 65 Pulse Rate [ 69 From Monitor] Respiratory 15 12 14 Rate Blood Pressure 134/68 129/68 117/66 O2 Sat by Pulse 100 100 99 Oximetry 09/06/18 09/06/18 09/06/18 08:30 08:55 09:00 Temperature Pulse Rate 64 72 74 Pulse Rate [ From Monitor] Respiratory 14 12 14 Rate Blood Pressure 139/70 125/77 125/68 O2 Sat by Pulse 98 100 100 Oximetry 09/06/18 09/06/18 09/06/18 09:30 10:00 10:20 Temperature Pulse Rate 71 76 72 Pulse Rate [ From Monitor] Respiratory 13 11 L Rate Blood Pressure 125/68 125/77 125/77 O2 Sat by Pulse 100 100 Oximetry 09/06/18 09/06/18 09/06/18 10:30 11:00 11:30 Temperature Pulse Rate 73 72 75 Pulse Rate [ From Monitor] Respiratory 11 L 15 15 Rate Blood Pressure 150/76 137/73 145/79 O2 Sat by Pulse 100 100 100 Oximetry 09/06/18 12:00 Temperature 97.4 F L Pulse Rate 74 Pulse Rate [ 72 From Monitor] Respiratory 9 L Rate Blood Pressure 127/72 O2 Sat by Pulse 100 Oximetry Constitutional: no acute distress, other (Elderly looking AAM, normocephalic resting in bed on MVS) Eyes: non-icteric, injected, other (+periorbital swelling) ENT: oropharynx moist Neck: supple, no lymphadenopathy, no JVD, other (s/p tracheostomy) Effort: mildly labored Ascultation: Bilateral: diminished breath sounds, rhonchi Percussion: Bilateral: not dull Cardiovascular: regular rate and rhythm Gastrointestinal: normoactive bowel sounds, soft, non-tender, non-distended Integumentary: normal Extremities: no cyanosis, pulses normal, no ischemia or petechiae, edema (trace ) Neurologic: unable to assess, other (slight pupillary constriction to light) Psychiatric: other (unable to assess) CBC and BMP: 09/05/18 04:52 09/05/18 04:52 ABG, PT/INR, D-dimer: ABG POC ABG pH 7.478 (7.35-7.45) H 09/05/18 18:32 POC ABG pCO2 39.7 (35-45) 09/05/18 18:32 POC ABG pO2 138 (80-105) H 09/05/18 18:32 POC ABG HCO3 29.4 (22-26 mml/L) 09/05/18 18:32 POC ABG Total CO2 31 (23-27mmol/L) 09/05/18 18:32 POC ABG O2 Sat 99 09/05/18 18:32 PT/INR, D-dimer PT 16.5 Sec. (12.2-14.9) H 08/13/18 00:47 INR 1.25 (0.87-1.13) H 08/13/18 00:47 2742.50 ng/mlDDU (0-234) H 08/13/18 20:07 Abnormal lab findings: Abnormal Labs 08/12/18 08/12/18 08/12/18 21:44 21:44 21:44 WBC 15.5 H RBC 3.12 L Hgb 8.8 L Hct 28.9 L MCV MCH MCHC 31 L RDW 19.5 H Lymph % (Auto) [place] % (Auto) Eos % (Auto) Lymph # [place] # Eos # Seg Neutrophils % Lymphocytes % (Manual) 48.0 H Seg Neutrophils # Lymphocytes # (Manual) 7.4 H PT 17.8 H INR 1.37 H APTT D-Dimer Heparin Anti-Xa Level POC ABG pH POC ABG pCO2 POC ABG pO2 Sodium 159 H Potassium Chloride 118.5 H Carbon Dioxide BUN 34 H Creatinine Glucose 161 H POC Glucose Lactic Acid Calcium Magnesium AST Alkaline Phosphatase Total Creatine Kinase CK-MB (CK-2) Troponin T 0.105 H* C-Reactive Protein Total Protein Albumin Cholesterol LDL Cholesterol Direct HDL Cholesterol Free T4 Urine WBC (Auto) Urine Creatinine Urine Total Protein Crossmatch 08/13/18 08/13/18 08/13/18 00:32 00:47 00:47 WBC RBC Hgb 9.2 L Hct 29.6 L MCV MCH MCHC RDW Lymph % (Auto) [place] % (Auto) Eos % (Auto) Lymph # [place] # Eos # Seg Neutrophils % Lymphocytes % (Manual) Seg Neutrophils # Lymphocytes # (Manual) PT 16.5 H INR 1.25 H APTT 37.3 H D-Dimer Heparin Anti-Xa Level POC ABG pH POC ABG pCO2 POC ABG pO2 Sodium Potassium Chloride Carbon Dioxide BUN Creatinine Glucose POC Glucose Lactic Acid Calcium Magnesium AST Alkaline Phosphatase Total Creatine Kinase 211 H CK-MB (CK-2) 7.7 H Troponin T 0.169 H* D C-Reactive Protein Total Protein Albumin Cholesterol 46 L LDL Cholesterol Direct 17 L HDL Cholesterol 6 L Free T4 Urine WBC (Auto) Urine Creatinine Urine Total Protein Crossmatch 08/13/18 08/13/18 08/13/18 00:50 02:25 05:34 WBC RBC Hgb Hct MCV MCH MCHC RDW Lymph % (Auto) [place] % (Auto) Eos % (Auto) Lymph # [place] # Eos # Seg Neutrophils % Lymphocytes % (Manual) Seg Neutrophils # Lymphocytes # (Manual) PT INR APTT D-Dimer Heparin Anti-Xa Level POC ABG pH 7.503 H POC ABG pCO2 POC ABG pO2 253 H Sodium Potassium Chloride Carbon Dioxide BUN Creatinine Glucose POC Glucose Lactic Acid Calcium Magnesium AST Alkaline Phosphatase Total Creatine Kinase 311 H CK-MB (CK-2) 10.4 H Troponin T 0.283 H* D C-Reactive Protein Total Protein Albumin Cholesterol LDL Cholesterol Direct HDL Cholesterol Free T4 Urine WBC (Auto) > 182.0 H Urine Creatinine Urine Total Protein Crossmatch 08/13/18 08/13/18 08/13/18 06:35 10:10 10:10 WBC RBC Hgb Hct MCV MCH MCHC RDW Lymph % (Auto) [place] % (Auto) Eos % (Auto) Lymph # [place] # Eos # Seg Neutrophils % Lymphocytes % (Manual) Seg Neutrophils # Lymphocytes # (Manual) PT INR APTT D-Dimer Heparin Anti-Xa Level POC ABG pH 7.554 H POC ABG pCO2 33.5 L POC ABG pO2 220 H Sodium 158 H Potassium Chloride 117.1 H Carbon Dioxide BUN 53 H Creatinine 2.0 H Glucose 247 H POC Glucose Lactic Acid Calcium 8.2 L Magnesium AST Alkaline Phosphatase Total Creatine Kinase 309 H CK-MB (CK-2) 4.1 H Troponin T 0.470 H* D C-Reactive Protein Total Protein Albumin Cholesterol LDL Cholesterol Direct HDL Cholesterol Free T4 Urine WBC (Auto) Urine Creatinine Urine Total Protein Crossmatch 08/13/18 08/13/18 08/13/18 12:53 12:53 17:55 WBC RBC Hgb Hct MCV MCH MCHC RDW Lymph % (Auto) [place] % (Auto) Eos % (Auto) Lymph # [place] # Eos # Seg Neutrophils % Lymphocytes % (Manual) Seg Neutrophils # Lymphocytes # (Manual) PT INR APTT D-Dimer Heparin Anti-Xa Level POC ABG pH POC ABG pCO2 POC ABG pO2 Sodium Potassium Chloride Carbon Dioxide BUN Creatinine Glucose POC Glucose 308 H Lactic Acid 2.80 H* Calcium Magnesium 2.50 H AST Alkaline Phosphatase Total Creatine Kinase CK-MB (CK-2) Troponin T C-Reactive Protein 16.90 H Total Protein Albumin Cholesterol LDL Cholesterol Direct HDL Cholesterol Free T4 Urine WBC (Auto) Urine Creatinine Urine Total Protein Crossmatch 08/13/18 08/13/18 08/13/18 20:07 21:16 23:17 WBC RBC Hgb Hct MCV MCH MCHC RDW Lymph % (Auto) [place] % (Auto) Eos % (Auto) Lymph # [place] # Eos # Seg Neutrophils % Lymphocytes % (Manual) Seg Neutrophils # Lymphocytes # (Manual) PT INR APTT D-Dimer 2742.50 H Heparin Anti-Xa Level POC ABG pH 7.483 H POC ABG pCO2 30.8 L POC ABG pO2 150 H Sodium Potassium Chloride Carbon Dioxide BUN Creatinine Glucose POC Glucose 245 H Lactic Acid Calcium Magnesium AST Alkaline Phosphatase Total Creatine Kinase CK-MB (CK-2) Troponin T C-Reactive Protein Total Protein Albumin Cholesterol LDL Cholesterol Direct HDL Cholesterol Free T4 Urine WBC (Auto) Urine Creatinine Urine Total Protein Crossmatch 08/14/18 08/14/18 08/14/18 04:03 04:03 04:56 WBC 18.2 H RBC 2.62 L Hgb 7.3 L Hct 24.5 L MCV MCH MCHC RDW 18.9 H Lymph % (Auto) [place] % (Auto) Eos % (Auto) Lymph # [place] # 1.2 H Eos # Seg Neutrophils % 79.4 H Lymphocytes % (Manual) Seg Neutrophils # 14.5 H Lymphocytes # (Manual) PT INR APTT D-Dimer Heparin Anti-Xa Level POC ABG pH POC ABG pCO2 33.5 L POC ABG pO2 153 H Sodium 152 H Potassium 3.4 L Chloride 113.8 H Carbon Dioxide BUN 72 H Creatinine 2.7 H Glucose 239 H POC Glucose Lactic Acid Calcium 7.6 L Magnesium AST 50 H Alkaline Phosphatase 219 H Total Creatine Kinase CK-MB (CK-2) Troponin T 0.409 H* C-Reactive Protein Total Protein 6.2 L Albumin 1.9 L Cholesterol LDL Cholesterol Direct HDL Cholesterol Free T4 Urine WBC (Auto) Urine Creatinine Urine Total Protein Crossmatch 08/14/18 08/14/18 08/14/18 05:18 13:38 15:35 WBC RBC Hgb Hct MCV MCH MCHC RDW Lymph % (Auto) [place] % (Auto) Eos % (Auto) Lymph # [place] # Eos # Seg Neutrophils % Lymphocytes % (Manual) Seg Neutrophils # Lymphocytes # (Manual) PT INR APTT D-Dimer Heparin Anti-Xa Level POC ABG pH POC ABG pCO2 POC ABG pO2 Sodium 150 H Potassium 3.2 L Chloride 114.5 H Carbon Dioxide BUN 69 H Creatinine 2.3 H Glucose 247 H POC Glucose 242 H 296 H Lactic Acid Calcium 7.2 L Magnesium AST Alkaline Phosphatase Total Creatine Kinase CK-MB (CK-2) Troponin T C-Reactive Protein Total Protein Albumin Cholesterol LDL Cholesterol Direct HDL Cholesterol Free T4 Urine WBC (Auto) Urine Creatinine Urine Total Protein Crossmatch 08/14/18 08/14/18 08/14/18 17:01 17:20 23:47 WBC RBC Hgb Hct MCV MCH MCHC RDW Lymph % (Auto) [place] % (Auto) Eos % (Auto) Lymph # [place] # Eos # Seg Neutrophils % Lymphocytes % (Manual) Seg Neutrophils # Lymphocytes # (Manual) PT INR APTT D-Dimer Heparin Anti-Xa Level POC ABG pH POC ABG pCO2 POC ABG pO2 Sodium Potassium Chloride Carbon Dioxide BUN Creatinine Glucose POC Glucose 261 H 280 H Lactic Acid Calcium Magnesium AST Alkaline Phosphatase Total Creatine Kinase CK-MB (CK-2) Troponin T C-Reactive Protein Total Protein Albumin Cholesterol LDL Cholesterol Direct HDL Cholesterol Free T4 Urine WBC (Auto) Urine Creatinine 60.9 H Urine Total Protein 64 H Crossmatch 08/15/18 08/15/18 08/15/18 04:05 04:05 04:05 WBC RBC Hgb 6.3 L Hct 19.7 L* MCV MCH MCHC RDW Lymph % (Auto) [place] % (Auto) Eos % (Auto) Lymph # [place] # Eos # Seg Neutrophils % Lymphocytes % (Manual) Seg Neutrophils # Lymphocytes # (Manual) PT INR APTT D-Dimer Heparin Anti-Xa Level 0.17 L POC ABG pH POC ABG pCO2 POC ABG pO2 Sodium 146 H Potassium 3.0 L Chloride 110.6 H Carbon Dioxide BUN 64 H Creatinine 2.2 H Glucose 231 H POC Glucose Lactic Acid Calcium 7.1 L Magnesium AST Alkaline Phosphatase Total Creatine Kinase CK-MB (CK-2) Troponin T C-Reactive Protein Total Protein Albumin Cholesterol LDL Cholesterol Direct HDL Cholesterol Free T4 Urine WBC (Auto) Urine Creatinine Urine Total Protein Crossmatch 08/15/18 08/15/18 08/15/18 05:21 05:26 06:35 WBC RBC Hgb Hct MCV MCH MCHC RDW Lymph % (Auto) [place] % (Auto) Eos % (Auto) Lymph # [place] # Eos # Seg Neutrophils % Lymphocytes % (Manual) Seg Neutrophils # Lymphocytes # (Manual) PT INR APTT 79.0 H* D-Dimer Heparin Anti-Xa Level POC ABG pH 7.494 H POC ABG pCO2 POC ABG pO2 155 H Sodium Potassium Chloride Carbon Dioxide BUN Creatinine Glucose POC Glucose 271 H Lactic Acid Calcium Magnesium AST Alkaline Phosphatase Total Creatine Kinase CK-MB (CK-2) Troponin T C-Reactive Protein Total Protein Albumin Cholesterol LDL Cholesterol Direct HDL Cholesterol Free T4 Urine WBC (Auto) Urine Creatinine Urine Total Protein Crossmatch 08/15/18 08/15/18 08/15/18 12:10 15:31 17:27 WBC RBC Hgb Hct MCV MCH MCHC RDW Lymph % (Auto) [place] % (Auto) Eos % (Auto) Lymph # [place] # Eos # Seg Neutrophils % Lymphocytes % (Manual) Seg Neutrophils # Lymphocytes # (Manual) PT INR APTT D-Dimer Heparin Anti-Xa Level POC ABG pH POC ABG pCO2 POC ABG pO2 Sodium Potassium Chloride Carbon Dioxide BUN Creatinine Glucose POC Glucose 301 H 287 H Lactic Acid Calcium Magnesium AST Alkaline Phosphatase Total Creatine Kinase CK-MB (CK-2) Troponin T C-Reactive Protein Total Protein Albumin Cholesterol LDL Cholesterol Direct HDL Cholesterol Free T4 Urine WBC (Auto) Urine Creatinine Urine Total Protein Crossmatch See Detail 08/15/18 08/15/18 08/16/18 21:41 23:45 04:13 WBC RBC Hgb Hct MCV MCH MCHC RDW Lymph % (Auto) [place] % (Auto) Eos % (Auto) Lymph # [place] # Eos # Seg Neutrophils % Lymphocytes % (Manual) Seg Neutrophils # Lymphocytes # (Manual) PT INR APTT D-Dimer Heparin Anti-Xa Level 0.19 L POC ABG pH POC ABG pCO2 32.1 L POC ABG pO2 107 H Sodium Potassium Chloride Carbon Dioxide BUN Creatinine Glucose POC Glucose 163 H Lactic Acid Calcium Magnesium AST Alkaline Phosphatase Total Creatine Kinase CK-MB (CK-2) Troponin T C-Reactive Protein Total Protein Albumin Cholesterol LDL Cholesterol Direct HDL Cholesterol Free T4 Urine WBC (Auto) Urine Creatinine Urine Total Protein Crossmatch 08/16/18 08/16/18 08/16/18 04:50 05:28 11:30 WBC RBC 2.67 L Hgb 8.1 L Hct 23.4 L MCV MCH MCHC 35 H RDW 18.3 H Lymph % (Auto) [place] % (Auto) Eos % (Auto) Lymph # [place] # Eos # Seg Neutrophils % Lymphocytes % (Manual) Seg Neutrophils # Lymphocytes # (Manual) PT INR APTT D-Dimer Heparin Anti-Xa Level 0.19 L POC ABG pH POC ABG pCO2 POC ABG pO2 Sodium Potassium Chloride Carbon Dioxide BUN Creatinine Glucose POC Glucose 141 H Lactic Acid Calcium Magnesium AST Alkaline Phosphatase Total Creatine Kinase CK-MB (CK-2) Troponin T C-Reactive Protein Total Protein Albumin Cholesterol LDL Cholesterol Direct HDL Cholesterol Free T4 Urine WBC (Auto) Urine Creatinine Urine Total Protein Crossmatch 08/16/18 08/16/18 08/16/18 11:30 12:00 12:01 WBC RBC Hgb Hct MCV MCH MCHC RDW Lymph % (Auto) [place] % (Auto) Eos % (Auto) Lymph # [place] # Eos # Seg Neutrophils % Lymphocytes % (Manual) Seg Neutrophils # Lymphocytes # (Manual) PT INR APTT D-Dimer Heparin Anti-Xa Level 0.15 L POC ABG pH POC ABG pCO2 POC ABG pO2 Sodium Potassium Chloride 107.8 H Carbon Dioxide 21 L BUN 47 H Creatinine 1.6 H Glucose 221 H POC Glucose 267 H Lactic Acid Calcium 6.9 L Magnesium AST Alkaline Phosphatase Total Creatine Kinase CK-MB (CK-2) Troponin T C-Reactive Protein Total Protein Albumin Cholesterol LDL Cholesterol Direct HDL Cholesterol Free T4 Urine WBC (Auto) Urine Creatinine Urine Total Protein Crossmatch 08/16/18 08/16/18 08/16/18 17:23 20:01 23:13 WBC RBC Hgb Hct MCV MCH MCHC RDW Lymph % (Auto) [place] % (Auto) Eos % (Auto) Lymph # [place] # Eos # Seg Neutrophils % Lymphocytes % (Manual) Seg Neutrophils # Lymphocytes # (Manual) PT INR APTT D-Dimer Heparin Anti-Xa Level 0.26 L POC ABG pH POC ABG pCO2 POC ABG pO2 Sodium Potassium Chloride Carbon Dioxide BUN Creatinine Glucose POC Glucose 245 H 256 H Lactic Acid Calcium Magnesium AST Alkaline Phosphatase Total Creatine Kinase CK-MB (CK-2) Troponin T C-Reactive Protein Total Protein Albumin Cholesterol LDL Cholesterol Direct HDL Cholesterol Free T4 Urine WBC (Auto) Urine Creatinine Urine Total Protein Crossmatch 08/17/18 08/17/18 08/17/18 04:29 04:55 05:34 WBC RBC Hgb 8.2 L Hct 24.3 L MCV MCH MCHC RDW Lymph % (Auto) [place] % (Auto) Eos % (Auto) Lymph # [place] # Eos # Seg Neutrophils % Lymphocytes % (Manual) Seg Neutrophils # Lymphocytes # (Manual) PT INR APTT D-Dimer Heparin Anti-Xa Level POC ABG pH POC ABG pCO2 32.4 L POC ABG pO2 108 H Sodium Potassium Chloride Carbon Dioxide BUN Creatinine Glucose POC Glucose 268 H Lactic Acid Calcium Magnesium AST Alkaline Phosphatase Total Creatine Kinase CK-MB (CK-2) Troponin T C-Reactive Protein Total Protein Albumin Cholesterol LDL Cholesterol Direct HDL Cholesterol Free T4 Urine WBC (Auto) Urine Creatinine Urine Total Protein Crossmatch 08/17/18 08/17/18 08/17/18 11:54 13:44 17:24 WBC RBC Hgb Hct MCV MCH MCHC RDW Lymph % (Auto) [place] % (Auto) Eos % (Auto) Lymph # [place] # Eos # Seg Neutrophils % Lymphocytes % (Manual) Seg Neutrophils # Lymphocytes # (Manual) PT INR APTT D-Dimer Heparin Anti-Xa Level POC ABG pH POC ABG pCO2 32.7 L POC ABG pO2 142 H Sodium Potassium Chloride Carbon Dioxide BUN Creatinine Glucose POC Glucose 295 H 283 H Lactic Acid Calcium Magnesium AST Alkaline Phosphatase Total Creatine Kinase CK-MB (CK-2) Troponin T C-Reactive Protein Total Protein Albumin Cholesterol LDL Cholesterol Direct HDL Cholesterol Free T4 Urine WBC (Auto) Urine Creatinine Urine Total Protein Crossmatch 08/18/18 08/18/18 08/18/18 00:05 00:59 04:15 WBC RBC Hgb Hct MCV MCH MCHC RDW Lymph % (Auto) [place] % (Auto) Eos % (Auto) Lymph # [place] # Eos # Seg Neutrophils % Lymphocytes % (Manual) Seg Neutrophils # Lymphocytes # (Manual) PT INR APTT D-Dimer Heparin Anti-Xa Level POC ABG pH POC ABG pCO2 POC ABG pO2 115 H Sodium Potassium Chloride Carbon Dioxide BUN Creatinine Glucose POC Glucose 247 H 251 H Lactic Acid Calcium Magnesium AST Alkaline Phosphatase Total Creatine Kinase CK-MB (CK-2) Troponin T C-Reactive Protein Total Protein Albumin Cholesterol LDL Cholesterol Direct HDL Cholesterol Free T4 Urine WBC (Auto) Urine Creatinine Urine Total Protein Crossmatch 08/18/18 08/18/18 08/18/18 05:02 12:20 17:51 WBC RBC Hgb Hct MCV MCH MCHC RDW Lymph % (Auto) [place] % (Auto) Eos % (Auto) Lymph # [place] # Eos # Seg Neutrophils % Lymphocytes % (Manual) Seg Neutrophils # Lymphocytes # (Manual) PT INR APTT D-Dimer Heparin Anti-Xa Level POC ABG pH POC ABG pCO2 POC ABG pO2 Sodium Potassium Chloride Carbon Dioxide BUN Creatinine Glucose POC Glucose 282 H 209 H 261 H Lactic Acid Calcium Magnesium AST Alkaline Phosphatase Total Creatine Kinase CK-MB (CK-2) Troponin T C-Reactive Protein Total Protein Albumin Cholesterol LDL Cholesterol Direct HDL Cholesterol Free T4 Urine WBC (Auto) Urine Creatinine Urine Total Protein Crossmatch 08/18/18 08/19/18 08/19/18 23:30 04:54 05:16 WBC RBC 2.62 L Hgb 7.5 L Hct 23.1 L MCV MCH MCHC RDW 18.1 H Lymph % (Auto) [place] % (Auto) Eos % (Auto) Lymph # [place] # Eos # Seg Neutrophils % Lymphocytes % (Manual) Seg Neutrophils # Lymphocytes # (Manual) PT INR APTT D-Dimer Heparin Anti-Xa Level POC ABG pH POC ABG pCO2 POC ABG pO2 58 L Sodium Potassium Chloride Carbon Dioxide BUN Creatinine Glucose POC Glucose 231 H Lactic Acid Calcium Magnesium AST Alkaline Phosphatase Total Creatine Kinase CK-MB (CK-2) Troponin T C-Reactive Protein Total Protein Albumin Cholesterol LDL Cholesterol Direct HDL Cholesterol Free T4 Urine WBC (Auto) Urine Creatinine Urine Total Protein Crossmatch 08/19/18 08/19/18 08/19/18 05:16 05:40 11:56 WBC RBC Hgb Hct MCV MCH MCHC RDW Lymph % (Auto) [place] % (Auto) Eos % (Auto) Lymph # [place] # Eos # Seg Neutrophils % Lymphocytes % (Manual) Seg Neutrophils # Lymphocytes # (Manual) PT INR APTT D-Dimer Heparin Anti-Xa Level POC ABG pH POC ABG pCO2 POC ABG pO2 Sodium 152 H D Potassium Chloride 118.7 H Carbon Dioxide BUN 38 H Creatinine Glucose 220 H POC Glucose 227 H 213 H Lactic Acid Calcium 8.1 L D Magnesium AST Alkaline Phosphatase Total Creatine Kinase CK-MB (CK-2) Troponin T C-Reactive Protein Total Protein Albumin Cholesterol LDL Cholesterol Direct HDL Cholesterol Free T4 Urine WBC (Auto) Urine Creatinine Urine Total Protein Crossmatch 08/19/18 08/19/18 08/20/18 18:37 23:32 04:38 WBC RBC Hgb Hct MCV MCH MCHC RDW Lymph % (Auto) [place] % (Auto) Eos % (Auto) Lymph # [place] # Eos # Seg Neutrophils % Lymphocytes % (Manual) Seg Neutrophils # Lymphocytes # (Manual) PT INR APTT D-Dimer Heparin Anti-Xa Level POC ABG pH POC ABG pCO2 POC ABG pO2 140 H Sodium Potassium Chloride Carbon Dioxide BUN Creatinine Glucose POC Glucose 227 H 245 H Lactic Acid Calcium Magnesium AST Alkaline Phosphatase Total Creatine Kinase CK-MB (CK-2) Troponin T C-Reactive Protein Total Protein Albumin Cholesterol LDL Cholesterol Direct HDL Cholesterol Free T4 Urine WBC (Auto) Urine Creatinine Urine Total Protein Crossmatch 08/20/18 08/20/18 08/20/18 05:31 05:37 05:37 WBC RBC 2.60 L Hgb 7.5 L Hct 22.9 L MCV MCH MCHC RDW 18.4 H Lymph % (Auto) [place] % (Auto) Eos % (Auto) Lymph # [place] # Eos # Seg Neutrophils % Lymphocytes % (Manual) Seg Neutrophils # Lymphocytes # (Manual) PT INR APTT D-Dimer Heparin Anti-Xa Level POC ABG pH POC ABG pCO2 POC ABG pO2 Sodium 150 H Potassium Chloride 115.6 H Carbon Dioxide BUN 38 H Creatinine Glucose 276 H POC Glucose 266 H Lactic Acid Calcium 7.9 L Magnesium AST Alkaline Phosphatase Total Creatine Kinase CK-MB (CK-2) Troponin T C-Reactive Protein Total Protein Albumin Cholesterol LDL Cholesterol Direct HDL Cholesterol Free T4 Urine WBC (Auto) Urine Creatinine Urine Total Protein Crossmatch 08/20/18 08/20/18 08/20/18 14:01 18:20 23:11 WBC RBC Hgb Hct MCV MCH MCHC RDW Lymph % (Auto) [place] % (Auto) Eos % (Auto) Lymph # [place] # Eos # Seg Neutrophils % Lymphocytes % (Manual) Seg Neutrophils # Lymphocytes # (Manual) PT INR APTT D-Dimer Heparin Anti-Xa Level POC ABG pH POC ABG pCO2 POC ABG pO2 Sodium Potassium Chloride Carbon Dioxide BUN Creatinine Glucose POC Glucose 305 H 271 H 218 H Lactic Acid Calcium Magnesium AST Alkaline Phosphatase Total Creatine Kinase CK-MB (CK-2) Troponin T C-Reactive Protein Total Protein Albumin Cholesterol LDL Cholesterol Direct HDL Cholesterol Free T4 Urine WBC (Auto) Urine Creatinine Urine Total Protein Crossmatch 08/21/18 08/21/18 08/21/18 04:41 04:41 06:20 WBC RBC 2.65 L Hgb 7.6 L Hct 23.3 L MCV MCH MCHC RDW 19.1 H Lymph % (Auto) [place] % (Auto) Eos % (Auto) Lymph # [place] # Eos # Seg Neutrophils % Lymphocytes % (Manual) Seg Neutrophils # Lymphocytes # (Manual) PT INR APTT D-Dimer Heparin Anti-Xa Level POC ABG pH POC ABG pCO2 POC ABG pO2 Sodium 150 H Potassium Chloride 117.8 H Carbon Dioxide BUN 37 H Creatinine Glucose 233 H POC Glucose 262 H Lactic Acid Calcium 7.9 L Magnesium AST Alkaline Phosphatase Total Creatine Kinase CK-MB (CK-2) Troponin T C-Reactive Protein Total Protein Albumin Cholesterol LDL Cholesterol Direct HDL Cholesterol Free T4 Urine WBC (Auto) Urine Creatinine Urine Total Protein Crossmatch 08/21/18 08/21/18 08/21/18 10:18 12:04 12:36 WBC RBC Hgb Hct MCV MCH MCHC RDW Lymph % (Auto) [place] % (Auto) Eos % (Auto) Lymph # [place] # Eos # Seg Neutrophils % Lymphocytes % (Manual) Seg Neutrophils # Lymphocytes # (Manual) PT INR APTT D-Dimer Heparin Anti-Xa Level POC ABG pH POC ABG pCO2 POC ABG pO2 Sodium Potassium Chloride Carbon Dioxide BUN Creatinine Glucose POC Glucose 256 H 245 H 255 H Lactic Acid Calcium Magnesium AST Alkaline Phosphatase Total Creatine Kinase CK-MB (CK-2) Troponin T C-Reactive Protein Total Protein Albumin Cholesterol LDL Cholesterol Direct HDL Cholesterol Free T4 Urine WBC (Auto) Urine Creatinine Urine Total Protein Crossmatch 08/21/18 08/21/18 08/22/18 17:36 23:29 05:01 WBC RBC Hgb Hct MCV MCH MCHC RDW Lymph % (Auto) [place] % (Auto) Eos % (Auto) Lymph # [place] # Eos # Seg Neutrophils % Lymphocytes % (Manual) Seg Neutrophils # Lymphocytes # (Manual) PT INR APTT D-Dimer Heparin Anti-Xa Level POC ABG pH 7.466 H POC ABG pCO2 33.8 L POC ABG pO2 111 H Sodium Potassium Chloride Carbon Dioxide BUN Creatinine Glucose POC Glucose 263 H 268 H Lactic Acid Calcium Magnesium AST Alkaline Phosphatase Total Creatine Kinase CK-MB (CK-2) Troponin T C-Reactive Protein Total Protein Albumin Cholesterol LDL Cholesterol Direct HDL Cholesterol Free T4 Urine WBC (Auto) Urine Creatinine Urine Total Protein Crossmatch 08/22/18 08/22/18 08/22/18 05:05 12:05 12:15 WBC RBC Hgb Hct MCV MCH MCHC RDW Lymph % (Auto) [place] % (Auto) Eos % (Auto) Lymph # [place] # Eos # Seg Neutrophils % Lymphocytes % (Manual) Seg Neutrophils # Lymphocytes # (Manual) PT INR APTT D-Dimer Heparin Anti-Xa Level POC ABG pH POC ABG pCO2 POC ABG pO2 Sodium 147 H Potassium Chloride 113.2 H Carbon Dioxide BUN 36 H Creatinine Glucose 249 H POC Glucose 256 H 228 H Lactic Acid Calcium 8.2 L Magnesium AST Alkaline Phosphatase Total Creatine Kinase CK-MB (CK-2) Troponin T C-Reactive Protein Total Protein Albumin Cholesterol LDL Cholesterol Direct HDL Cholesterol Free T4 Urine WBC (Auto) Urine Creatinine Urine Total Protein Crossmatch 08/22/18 08/23/18 08/23/18 17:30 00:03 05:05 WBC RBC Hgb Hct MCV MCH MCHC RDW Lymph % (Auto) [place] % (Auto) Eos % (Auto) Lymph # [place] # Eos # Seg Neutrophils % Lymphocytes % (Manual) Seg Neutrophils # Lymphocytes # (Manual) PT INR APTT D-Dimer Heparin Anti-Xa Level POC ABG pH POC ABG pCO2 POC ABG pO2 Sodium Potassium Chloride Carbon Dioxide BUN Creatinine Glucose POC Glucose 291 H 259 H 247 H Lactic Acid Calcium Magnesium AST Alkaline Phosphatase Total Creatine Kinase CK-MB (CK-2) Troponin T C-Reactive Protein Total Protein Albumin Cholesterol LDL Cholesterol Direct HDL Cholesterol Free T4 Urine WBC (Auto) Urine Creatinine Urine Total Protein Crossmatch 08/23/18 08/23/18 08/23/18 05:14 12:29 17:21 WBC RBC Hgb Hct MCV MCH MCHC RDW Lymph % (Auto) [place] % (Auto) Eos % (Auto) Lymph # [place] # Eos # Seg Neutrophils % Lymphocytes % (Manual) Seg Neutrophils # Lymphocytes # (Manual) PT INR APTT D-Dimer Heparin Anti-Xa Level POC ABG pH POC ABG pCO2 POC ABG pO2 Sodium Potassium Chloride Carbon Dioxide BUN Creatinine Glucose POC Glucose 208 H 138 H 175 H Lactic Acid Calcium Magnesium AST Alkaline Phosphatase Total Creatine Kinase CK-MB (CK-2) Troponin T C-Reactive Protein Total Protein Albumin Cholesterol LDL Cholesterol Direct HDL Cholesterol Free T4 Urine WBC (Auto) Urine Creatinine Urine Total Protein Crossmatch 08/23/18 08/24/18 08/24/18 23:36 01:00 05:50 WBC RBC 2.92 L 2.90 L Hgb 8.3 L 8.2 L Hct 25.4 L 25.2 L MCV MCH MCHC RDW 18.9 H 18.6 H Lymph % (Auto) [place] % (Auto) 9.2 H Eos % (Auto) Lymph # [place] # Eos # Seg Neutrophils % Lymphocytes % (Manual) Seg Neutrophils # Lymphocytes # (Manual) PT INR APTT D-Dimer Heparin Anti-Xa Level POC ABG pH POC ABG pCO2 POC ABG pO2 Sodium Potassium Chloride Carbon Dioxide BUN Creatinine Glucose POC Glucose 163 H Lactic Acid Calcium Magnesium AST Alkaline Phosphatase Total Creatine Kinase CK-MB (CK-2) Troponin T C-Reactive Protein Total Protein Albumin Cholesterol LDL Cholesterol Direct HDL Cholesterol Free T4 Urine WBC (Auto) Urine Creatinine Urine Total Protein Crossmatch 08/24/18 08/24/18 08/24/18 05:50 12:26 18:37 WBC RBC Hgb Hct MCV MCH MCHC RDW Lymph % (Auto) [place] % (Auto) Eos % (Auto) Lymph # [place] # Eos # Seg Neutrophils % Lymphocytes % (Manual) Seg Neutrophils # Lymphocytes # (Manual) PT INR APTT D-Dimer Heparin Anti-Xa Level POC ABG pH POC ABG pCO2 POC ABG pO2 Sodium 147 H Potassium Chloride 113.6 H Carbon Dioxide BUN 33 H Creatinine Glucose 210 H POC Glucose 223 H 166 H Lactic Acid Calcium 8.3 L Magnesium AST Alkaline Phosphatase Total Creatine Kinase CK-MB (CK-2) Troponin T C-Reactive Protein Total Protein Albumin Cholesterol LDL Cholesterol Direct HDL Cholesterol Free T4 Urine WBC (Auto) Urine Creatinine Urine Total Protein Crossmatch 08/24/18 08/25/18 08/25/18 23:47 04:55 04:55 WBC RBC 2.94 L Hgb 8.4 L Hct 25.1 L MCV MCH MCHC RDW 18.2 H Lymph % (Auto) [place] % (Auto) Eos % (Auto) Lymph # [place] # Eos # Seg Neutrophils % Lymphocytes % (Manual) Seg Neutrophils # Lymphocytes # (Manual) PT INR APTT D-Dimer Heparin Anti-Xa Level POC ABG pH POC ABG pCO2 POC ABG pO2 Sodium Potassium Chloride 110.2 H Carbon Dioxide BUN 30 H Creatinine Glucose POC Glucose 126 H Lactic Acid Calcium 8.1 L Magnesium AST Alkaline Phosphatase Total Creatine Kinase CK-MB (CK-2) Troponin T C-Reactive Protein Total Protein Albumin Cholesterol LDL Cholesterol Direct HDL Cholesterol Free T4 Urine WBC (Auto) Urine Creatinine Urine Total Protein Crossmatch 08/25/18 08/26/18 08/26/18 12:40 04:39 04:39 WBC RBC 2.96 L Hgb 8.3 L Hct 25.7 L MCV MCH MCHC RDW 18.2 H Lymph % (Auto) 10.5 L [place] % (Auto) 9.3 H Eos % (Auto) Lymph # 0.8 L [place] # Eos # Seg Neutrophils % 77.0 H Lymphocytes % (Manual) Seg Neutrophils # Lymphocytes # (Manual) PT INR APTT D-Dimer Heparin Anti-Xa Level POC ABG pH POC ABG pCO2 POC ABG pO2 Sodium 147 H Potassium Chloride 113.5 H Carbon Dioxide BUN 27 H Creatinine 0.7 L Glucose 106 H POC Glucose Lactic Acid Calcium 8.0 L Magnesium AST Alkaline Phosphatase Total Creatine Kinase CK-MB (CK-2) Troponin T C-Reactive Protein Total Protein Albumin Cholesterol LDL Cholesterol Direct HDL Cholesterol Free T4 Urine WBC (Auto) > 182.0 H Urine Creatinine Urine Total Protein Crossmatch 08/26/18 08/26/18 08/26/18 05:27 09:00 09:54 WBC RBC Hgb Hct MCV MCH MCHC RDW Lymph % (Auto) [place] % (Auto) Eos % (Auto) Lymph # [place] # Eos # Seg Neutrophils % Lymphocytes % (Manual) Seg Neutrophils # Lymphocytes # (Manual) PT INR APTT D-Dimer Heparin Anti-Xa Level POC ABG pH POC ABG pCO2 POC ABG pO2 Sodium Potassium Chloride Carbon Dioxide BUN Creatinine Glucose POC Glucose 120 H 170 H Lactic Acid Calcium Magnesium AST Alkaline Phosphatase Total Creatine Kinase CK-MB (CK-2) Troponin T C-Reactive Protein Total Protein Albumin Cholesterol LDL Cholesterol Direct HDL Cholesterol Free T4 0.51 L Urine WBC (Auto) Urine Creatinine Urine Total Protein Crossmatch 08/26/18 08/26/18 08/27/18 14:52 17:50 06:30 WBC RBC Hgb Hct MCV MCH MCHC RDW Lymph % (Auto) [place] % (Auto) Eos % (Auto) Lymph # [place] # Eos # Seg Neutrophils % Lymphocytes % (Manual) Seg Neutrophils # Lymphocytes # (Manual) PT INR APTT D-Dimer Heparin Anti-Xa Level POC ABG pH POC ABG pCO2 POC ABG pO2 Sodium 150 H Potassium Chloride 114.8 H Carbon Dioxide BUN 24 H Creatinine 0.7 L Glucose 131 H POC Glucose 166 H 107 H Lactic Acid Calcium 7.8 L Magnesium AST Alkaline Phosphatase Total Creatine Kinase CK-MB (CK-2) Troponin T C-Reactive Protein Total Protein Albumin Cholesterol LDL Cholesterol Direct HDL Cholesterol Free T4 Urine WBC (Auto) Urine Creatinine Urine Total Protein Crossmatch 08/27/18 08/27/18 08/27/18 08:22 14:20 16:06 WBC RBC Hgb Hct MCV MCH MCHC RDW Lymph % (Auto) [place] % (Auto) Eos % (Auto) Lymph # [place] # Eos # Seg Neutrophils % Lymphocytes % (Manual) Seg Neutrophils # Lymphocytes # (Manual) PT INR APTT D-Dimer Heparin Anti-Xa Level POC ABG pH POC ABG pCO2 POC ABG pO2 Sodium Potassium Chloride Carbon Dioxide BUN Creatinine Glucose POC Glucose 112 H 151 H 158 H Lactic Acid Calcium Magnesium AST Alkaline Phosphatase Total Creatine Kinase CK-MB (CK-2) Troponin T C-Reactive Protein Total Protein Albumin Cholesterol LDL Cholesterol Direct HDL Cholesterol Free T4 Urine WBC (Auto) Urine Creatinine Urine Total Protein Crossmatch 08/27/18 08/27/18 08/28/18 20:09 21:25 02:03 WBC RBC Hgb Hct MCV MCH MCHC RDW Lymph % (Auto) [place] % (Auto) Eos % (Auto) Lymph # [place] # Eos # Seg Neutrophils % Lymphocytes % (Manual) Seg Neutrophils # Lymphocytes # (Manual) PT INR APTT D-Dimer Heparin Anti-Xa Level POC ABG pH POC ABG pCO2 POC ABG pO2 130 H Sodium Potassium Chloride Carbon Dioxide BUN Creatinine Glucose POC Glucose 226 H 250 H Lactic Acid Calcium Magnesium AST Alkaline Phosphatase Total Creatine Kinase CK-MB (CK-2) Troponin T C-Reactive Protein Total Protein Albumin Cholesterol LDL Cholesterol Direct HDL Cholesterol Free T4 Urine WBC (Auto) Urine Creatinine Urine Total Protein Crossmatch 08/28/18 08/28/18 08/28/18 05:56 07:15 13:17 WBC RBC Hgb Hct MCV MCH MCHC RDW Lymph % (Auto) [place] % (Auto) Eos % (Auto) Lymph # [place] # Eos # Seg Neutrophils % Lymphocytes % (Manual) Seg Neutrophils # Lymphocytes # (Manual) PT INR APTT D-Dimer Heparin Anti-Xa Level POC ABG pH POC ABG pCO2 POC ABG pO2 Sodium Potassium Chloride Carbon Dioxide BUN Creatinine Glucose 198 H POC Glucose 221 H 188 H Lactic Acid Calcium 7.7 L Magnesium AST Alkaline Phosphatase Total Creatine Kinase CK-MB (CK-2) Troponin T C-Reactive Protein Total Protein Albumin Cholesterol LDL Cholesterol Direct HDL Cholesterol Free T4 Urine WBC (Auto) Urine Creatinine Urine Total Protein Crossmatch 08/28/18 08/28/18 08/28/18 15:53 18:12 22:35 WBC RBC Hgb Hct MCV MCH MCHC RDW Lymph % (Auto) [place] % (Auto) Eos % (Auto) Lymph # [place] # Eos # Seg Neutrophils % Lymphocytes % (Manual) Seg Neutrophils # Lymphocytes # (Manual) PT INR APTT D-Dimer Heparin Anti-Xa Level POC ABG pH 7.457 H POC ABG pCO2 POC ABG pO2 Sodium Potassium Chloride Carbon Dioxide BUN Creatinine Glucose POC Glucose 197 H 225 H Lactic Acid Calcium Magnesium AST Alkaline Phosphatase Total Creatine Kinase CK-MB (CK-2) Troponin T C-Reactive Protein Total Protein Albumin Cholesterol LDL Cholesterol Direct HDL Cholesterol Free T4 Urine WBC (Auto) Urine Creatinine Urine Total Protein Crossmatch 08/29/18 08/29/18 08/29/18 03:04 10:47 14:25 WBC RBC Hgb Hct MCV MCH MCHC RDW Lymph % (Auto) [place] % (Auto) Eos % (Auto) Lymph # [place] # Eos # Seg Neutrophils % Lymphocytes % (Manual) Seg Neutrophils # Lymphocytes # (Manual) PT INR APTT D-Dimer Heparin Anti-Xa Level POC ABG pH POC ABG pCO2 POC ABG pO2 Sodium Potassium Chloride Carbon Dioxide BUN Creatinine Glucose POC Glucose 223 H 371 H 266 H Lactic Acid Calcium Magnesium AST Alkaline Phosphatase Total Creatine Kinase CK-MB (CK-2) Troponin T C-Reactive Protein Total Protein Albumin Cholesterol LDL Cholesterol Direct HDL Cholesterol Free T4 Urine WBC (Auto) Urine Creatinine Urine Total Protein Crossmatch 08/29/18 08/29/18 08/29/18 16:45 17:36 21:33 WBC RBC Hgb Hct MCV MCH MCHC RDW Lymph % (Auto) [place] % (Auto) Eos % (Auto) Lymph # [place] # Eos # Seg Neutrophils % Lymphocytes % (Manual) Seg Neutrophils # Lymphocytes # (Manual) PT INR APTT D-Dimer Heparin Anti-Xa Level POC ABG pH POC ABG pCO2 POC ABG pO2 118 H Sodium Potassium Chloride Carbon Dioxide BUN Creatinine Glucose POC Glucose 253 H 204 H Lactic Acid Calcium Magnesium AST Alkaline Phosphatase Total Creatine Kinase CK-MB (CK-2) Troponin T C-Reactive Protein Total Protein Albumin Cholesterol LDL Cholesterol Direct HDL Cholesterol Free T4 Urine WBC (Auto) Urine Creatinine Urine Total Protein Crossmatch 08/30/18 08/30/18 08/30/18 01:33 05:27 05:40 WBC RBC 3.12 L Hgb 8.5 L Hct 25.9 L MCV 83 L MCH 27 L MCHC RDW 18.3 H Lymph % (Auto) [place] % (Auto) 7.8 H Eos % (Auto) 8.8 H Lymph # [place] # Eos # 0.6 H Seg Neutrophils % Lymphocytes % (Manual) Seg Neutrophils # Lymphocytes # (Manual) PT INR APTT D-Dimer Heparin Anti-Xa Level POC ABG pH POC ABG pCO2 POC ABG pO2 Sodium Potassium Chloride Carbon Dioxide BUN Creatinine Glucose POC Glucose 157 H 178 H Lactic Acid Calcium Magnesium AST Alkaline Phosphatase Total Creatine Kinase CK-MB (CK-2) Troponin T C-Reactive Protein Total Protein Albumin Cholesterol LDL Cholesterol Direct HDL Cholesterol Free T4 Urine WBC (Auto) Urine Creatinine Urine Total Protein Crossmatch 08/30/18 08/30/18 08/30/18 05:40 09:28 11:41 WBC RBC Hgb Hct MCV MCH MCHC RDW Lymph % (Auto) [place] % (Auto) Eos % (Auto) Lymph # [place] # Eos # Seg Neutrophils % Lymphocytes % (Manual) Seg Neutrophils # Lymphocytes # (Manual) PT INR APTT D-Dimer Heparin Anti-Xa Level POC ABG pH POC ABG pCO2 POC ABG pO2 Sodium Potassium Chloride Carbon Dioxide BUN Creatinine 0.7 L Glucose 189 H POC Glucose 216 H 257 H Lactic Acid Calcium 8.2 L Magnesium AST 50 H Alkaline Phosphatase 158 H Total Creatine Kinase CK-MB (CK-2) Troponin T C-Reactive Protein Total Protein Albumin 1.6 L Cholesterol LDL Cholesterol Direct HDL Cholesterol Free T4 Urine WBC (Auto) Urine Creatinine Urine Total Protein Crossmatch 08/30/18 08/30/18 08/30/18 14:34 17:07 21:56 WBC RBC Hgb Hct MCV MCH MCHC RDW Lymph % (Auto) [place] % (Auto) Eos % (Auto) Lymph # [place] # Eos # Seg Neutrophils % Lymphocytes % (Manual) Seg Neutrophils # Lymphocytes # (Manual) PT INR APTT D-Dimer Heparin Anti-Xa Level POC ABG pH POC ABG pCO2 POC ABG pO2 Sodium Potassium Chloride Carbon Dioxide BUN Creatinine Glucose POC Glucose 263 H 263 H 234 H Lactic Acid Calcium Magnesium AST Alkaline Phosphatase Total Creatine Kinase CK-MB (CK-2) Troponin T C-Reactive Protein Total Protein Albumin Cholesterol LDL Cholesterol Direct HDL Cholesterol Free T4 Urine WBC (Auto) Urine Creatinine Urine Total Protein Crossmatch 08/31/18 08/31/18 08/31/18 02:02 05:29 09:24 WBC RBC Hgb Hct MCV MCH MCHC RDW Lymph % (Auto) [place] % (Auto) Eos % (Auto) Lymph # [place] # Eos # Seg Neutrophils % Lymphocytes % (Manual) Seg Neutrophils # Lymphocytes # (Manual) PT INR APTT D-Dimer Heparin Anti-Xa Level POC ABG pH POC ABG pCO2 POC ABG pO2 Sodium Potassium Chloride Carbon Dioxide BUN Creatinine Glucose POC Glucose 151 H 156 H 107 H Lactic Acid Calcium Magnesium AST Alkaline Phosphatase Total Creatine Kinase CK-MB (CK-2) Troponin T C-Reactive Protein Total Protein Albumin Cholesterol LDL Cholesterol Direct HDL Cholesterol Free T4 Urine WBC (Auto) Urine Creatinine Urine Total Protein Crossmatch 08/31/18 08/31/18 08/31/18 13:51 17:28 21:40 WBC RBC Hgb Hct MCV MCH MCHC RDW Lymph % (Auto) [place] % (Auto) Eos % (Auto) Lymph # [place] # Eos # Seg Neutrophils % Lymphocytes % (Manual) Seg Neutrophils # Lymphocytes # (Manual) PT INR APTT D-Dimer Heparin Anti-Xa Level POC ABG pH POC ABG pCO2 POC ABG pO2 Sodium Potassium Chloride Carbon Dioxide BUN Creatinine Glucose POC Glucose 170 H 239 H 209 H Lactic Acid Calcium Magnesium AST Alkaline Phosphatase Total Creatine Kinase CK-MB (CK-2) Troponin T C-Reactive Protein Total Protein Albumin Cholesterol LDL Cholesterol Direct HDL Cholesterol Free T4 Urine WBC (Auto) Urine Creatinine Urine Total Protein Crossmatch 08/31/18 08/31/18 09/01/18 22:25 22:25 01:47 WBC RBC Hgb Hct MCV MCH MCHC RDW Lymph % (Auto) [place] % (Auto) Eos % (Auto) Lymph # [place] # Eos # Seg Neutrophils % Lymphocytes % (Manual) Seg Neutrophils # Lymphocytes # (Manual) PT INR APTT D-Dimer Heparin Anti-Xa Level POC ABG pH POC ABG pCO2 45.6 H POC ABG pO2 135 H Sodium Potassium Chloride Carbon Dioxide BUN Creatinine Glucose POC Glucose 208 H 223 H Lactic Acid Calcium Magnesium AST Alkaline Phosphatase Total Creatine Kinase CK-MB (CK-2) Troponin T C-Reactive Protein Total Protein Albumin Cholesterol LDL Cholesterol Direct HDL Cholesterol Free T4 Urine WBC (Auto) Urine Creatinine Urine Total Protein Crossmatch 09/01/18 09/01/18 09/01/18 05:18 05:19 05:19 WBC RBC 3.08 L Hgb 8.5 L Hct 25.6 L MCV 83 L MCH MCHC RDW 18.7 H Lymph % (Auto) [place] % (Auto) 7.9 H Eos % (Auto) 6.1 H Lymph # [place] # Eos # Seg Neutrophils % Lymphocytes % (Manual) Seg Neutrophils # Lymphocytes # (Manual) PT INR APTT D-Dimer Heparin Anti-Xa Level POC ABG pH POC ABG pCO2 POC ABG pO2 Sodium Potassium Chloride 107.9 H Carbon Dioxide BUN 21 H Creatinine 0.7 L Glucose 188 H POC Glucose 236 H Lactic Acid Calcium Magnesium AST Alkaline Phosphatase Total Creatine Kinase CK-MB (CK-2) Troponin T C-Reactive Protein Total Protein Albumin Cholesterol LDL Cholesterol Direct HDL Cholesterol Free T4 Urine WBC (Auto) Urine Creatinine Urine Total Protein Crossmatch 09/01/18 09/01/18 09/01/18 09:29 14:25 18:20 WBC RBC Hgb Hct MCV MCH MCHC RDW Lymph % (Auto) [place] % (Auto) Eos % (Auto) Lymph # [place] # Eos # Seg Neutrophils % Lymphocytes % (Manual) Seg Neutrophils # Lymphocytes # (Manual) PT INR APTT D-Dimer Heparin Anti-Xa Level POC ABG pH POC ABG pCO2 POC ABG pO2 Sodium Potassium Chloride Carbon Dioxide BUN Creatinine Glucose POC Glucose 231 H 294 H 215 H Lactic Acid Calcium Magnesium AST Alkaline Phosphatase Total Creatine Kinase CK-MB (CK-2) Troponin T C-Reactive Protein Total Protein Albumin Cholesterol LDL Cholesterol Direct HDL Cholesterol Free T4 Urine WBC (Auto) Urine Creatinine Urine Total Protein Crossmatch 09/01/18 09/02/18 09/02/18 21:21 03:28 05:25 WBC RBC Hgb Hct MCV MCH MCHC RDW Lymph % (Auto) [place] % (Auto) Eos % (Auto) Lymph # [place] # Eos # Seg Neutrophils % Lymphocytes % (Manual) Seg Neutrophils # Lymphocytes # (Manual) PT INR APTT D-Dimer Heparin Anti-Xa Level POC ABG pH POC ABG pCO2 POC ABG pO2 Sodium Potassium Chloride Carbon Dioxide BUN Creatinine Glucose POC Glucose 236 H 194 H 183 H Lactic Acid Calcium Magnesium AST Alkaline Phosphatase Total Creatine Kinase CK-MB (CK-2) Troponin T C-Reactive Protein Total Protein Albumin Cholesterol LDL Cholesterol Direct HDL Cholesterol Free T4 Urine WBC (Auto) Urine Creatinine Urine Total Protein Crossmatch 09/02/18 09/02/18 09/02/18 09:16 15:30 17:20 WBC RBC Hgb Hct MCV MCH MCHC RDW Lymph % (Auto) [place] % (Auto) Eos % (Auto) Lymph # [place] # Eos # Seg Neutrophils % Lymphocytes % (Manual) Seg Neutrophils # Lymphocytes # (Manual) PT INR APTT D-Dimer Heparin Anti-Xa Level POC ABG pH POC ABG pCO2 POC ABG pO2 Sodium Potassium Chloride Carbon Dioxide BUN Creatinine Glucose POC Glucose 251 H 303 H 316 H Lactic Acid Calcium Magnesium AST Alkaline Phosphatase Total Creatine Kinase CK-MB (CK-2) Troponin T C-Reactive Protein Total Protein Albumin Cholesterol LDL Cholesterol Direct HDL Cholesterol Free T4 Urine WBC (Auto) Urine Creatinine Urine Total Protein Crossmatch 09/02/18 09/03/18 09/03/18 21:25 03:32 05:20 WBC RBC Hgb Hct MCV MCH MCHC RDW Lymph % (Auto) [place] % (Auto) Eos % (Auto) Lymph # [place] # Eos # Seg Neutrophils % Lymphocytes % (Manual) Seg Neutrophils # Lymphocytes # (Manual) PT INR APTT D-Dimer Heparin Anti-Xa Level POC ABG pH POC ABG pCO2 POC ABG pO2 Sodium Potassium Chloride Carbon Dioxide BUN Creatinine Glucose POC Glucose 242 H 305 H 225 H Lactic Acid Calcium Magnesium AST Alkaline Phosphatase Total Creatine Kinase CK-MB (CK-2) Troponin T C-Reactive Protein Total Protein Albumin Cholesterol LDL Cholesterol Direct HDL Cholesterol Free T4 Urine WBC (Auto) Urine Creatinine Urine Total Protein Crossmatch 09/03/18 09/03/18 09/03/18 07:52 07:52 10:19 WBC RBC 3.29 L Hgb 9.0 L Hct 27.3 L MCV 83 L MCH 27 L MCHC RDW 18.4 H Lymph % (Auto) [place] % (Auto) Eos % (Auto) Lymph # [place] # Eos # Seg Neutrophils % Lymphocytes % (Manual) Seg Neutrophils # Lymphocytes # (Manual) PT INR APTT D-Dimer Heparin Anti-Xa Level POC ABG pH POC ABG pCO2 POC ABG pO2 Sodium Potassium Chloride Carbon Dioxide BUN 23 H Creatinine Glucose 205 H POC Glucose 228 H Lactic Acid Calcium 7.9 L Magnesium AST Alkaline Phosphatase Total Creatine Kinase CK-MB (CK-2) Troponin T C-Reactive Protein Total Protein Albumin Cholesterol LDL Cholesterol Direct HDL Cholesterol Free T4 Urine WBC (Auto) Urine Creatinine Urine Total Protein Crossmatch 09/03/18 09/03/18 09/03/18 13:42 17:22 21:33 WBC RBC Hgb Hct MCV MCH MCHC RDW Lymph % (Auto) [place] % (Auto) Eos % (Auto) Lymph # [place] # Eos # Seg Neutrophils % Lymphocytes % (Manual) Seg Neutrophils # Lymphocytes # (Manual) PT INR APTT D-Dimer Heparin Anti-Xa Level POC ABG pH POC ABG pCO2 POC ABG pO2 Sodium Potassium Chloride Carbon Dioxide BUN Creatinine Glucose POC Glucose 221 H 186 H 179 H Lactic Acid Calcium Magnesium AST Alkaline Phosphatase Total Creatine Kinase CK-MB (CK-2) Troponin T C-Reactive Protein Total Protein Albumin Cholesterol LDL Cholesterol Direct HDL Cholesterol Free T4 Urine WBC (Auto) Urine Creatinine Urine Total Protein Crossmatch 09/04/18 09/04/18 09/04/18 02:07 05:54 11:03 WBC RBC Hgb Hct MCV MCH MCHC RDW Lymph % (Auto) [place] % (Auto) Eos % (Auto) Lymph # [place] # Eos # Seg Neutrophils % Lymphocytes % (Manual) Seg Neutrophils # Lymphocytes # (Manual) PT INR APTT D-Dimer Heparin Anti-Xa Level POC ABG pH POC ABG pCO2 POC ABG pO2 Sodium Potassium Chloride Carbon Dioxide BUN Creatinine Glucose POC Glucose 174 H 171 H 181 H Lactic Acid Calcium Magnesium AST Alkaline Phosphatase Total Creatine Kinase CK-MB (CK-2) Troponin T C-Reactive Protein Total Protein Albumin Cholesterol LDL Cholesterol Direct HDL Cholesterol Free T4 Urine WBC (Auto) Urine Creatinine Urine Total Protein Crossmatch 09/04/18 09/04/18 09/04/18 14:59 18:24 21:50 WBC RBC Hgb Hct MCV MCH MCHC RDW Lymph % (Auto) [place] % (Auto) Eos % (Auto) Lymph # [place] # Eos # Seg Neutrophils % Lymphocytes % (Manual) Seg Neutrophils # Lymphocytes # (Manual) PT INR APTT D-Dimer Heparin Anti-Xa Level POC ABG pH POC ABG pCO2 POC ABG pO2 Sodium Potassium Chloride Carbon Dioxide BUN Creatinine Glucose POC Glucose 204 H 236 H 197 H Lactic Acid Calcium Magnesium AST Alkaline Phosphatase Total Creatine Kinase CK-MB (CK-2) Troponin T C-Reactive Protein Total Protein Albumin Cholesterol LDL Cholesterol Direct HDL Cholesterol Free T4 Urine WBC (Auto) Urine Creatinine Urine Total Protein Crossmatch 09/05/18 09/05/18 09/05/18 01:32 04:52 04:52 WBC RBC 3.16 L Hgb 8.7 L Hct 26.0 L MCV 82 L MCH MCHC RDW 18.9 H Lymph % (Auto) [place] % (Auto) Eos % (Auto) Lymph # [place] # Eos # Seg Neutrophils % Lymphocytes % (Manual) Seg Neutrophils # Lymphocytes # (Manual) PT INR APTT D-Dimer Heparin Anti-Xa Level POC ABG pH POC ABG pCO2 POC ABG pO2 Sodium Potassium Chloride 107.2 H Carbon Dioxide BUN 23 H Creatinine 0.7 L Glucose 215 H POC Glucose 210 H Lactic Acid Calcium 8.3 L Magnesium AST Alkaline Phosphatase Total Creatine Kinase CK-MB (CK-2) Troponin T C-Reactive Protein Total Protein Albumin Cholesterol LDL Cholesterol Direct HDL Cholesterol Free T4 Urine WBC (Auto) Urine Creatinine Urine Total Protein Crossmatch 09/05/18 09/05/18 09/05/18 05:36 10:26 13:11 WBC RBC Hgb Hct MCV MCH MCHC RDW Lymph % (Auto) [place] % (Auto) Eos % (Auto) Lymph # [place] # Eos # Seg Neutrophils % Lymphocytes % (Manual) Seg Neutrophils # Lymphocytes # (Manual) PT INR APTT D-Dimer Heparin Anti-Xa Level POC ABG pH POC ABG pCO2 POC ABG pO2 Sodium Potassium Chloride Carbon Dioxide BUN Creatinine Glucose POC Glucose 216 H 206 H 161 H Lactic Acid Calcium Magnesium AST Alkaline Phosphatase Total Creatine Kinase CK-MB (CK-2) Troponin T C-Reactive Protein Total Protein Albumin Cholesterol LDL Cholesterol Direct HDL Cholesterol Free T4 Urine WBC (Auto) Urine Creatinine Urine Total Protein Crossmatch 09/05/18 09/05/18 09/05/18 18:27 18:32 22:05 WBC RBC Hgb Hct MCV MCH MCHC RDW Lymph % (Auto) [place] % (Auto) Eos % (Auto) Lymph # [place] # Eos # Seg Neutrophils % Lymphocytes % (Manual) Seg Neutrophils # Lymphocytes # (Manual) PT INR APTT D-Dimer Heparin Anti-Xa Level POC ABG pH 7.478 H POC ABG pCO2 POC ABG pO2 138 H Sodium Potassium Chloride Carbon Dioxide BUN Creatinine Glucose POC Glucose 154 H 149 H Lactic Acid Calcium Magnesium AST Alkaline Phosphatase Total Creatine Kinase CK-MB (CK-2) Troponin T C-Reactive Protein Total Protein Albumin Cholesterol LDL Cholesterol Direct HDL Cholesterol Free T4 Urine WBC (Auto) Urine Creatinine Urine Total Protein Crossmatch 09/06/18 09/06/18 09/06/18 04:40 08:30 10:06 WBC RBC Hgb Hct MCV MCH MCHC RDW Lymph % (Auto) [place] % (Auto) Eos % (Auto) Lymph # [place] # Eos # Seg Neutrophils % Lymphocytes % (Manual) Seg Neutrophils # Lymphocytes # (Manual) PT INR APTT D-Dimer Heparin Anti-Xa Level POC ABG pH POC ABG pCO2 POC ABG pO2 Sodium Potassium Chloride Carbon Dioxide BUN Creatinine Glucose POC Glucose 140 H 188 H 199 H Lactic Acid Calcium Magnesium AST Alkaline Phosphatase Total Creatine Kinase CK-MB (CK-2) Troponin T C-Reactive Protein Total Protein Albumin Cholesterol LDL Cholesterol Direct HDL Cholesterol Free T4 Urine WBC (Auto) Urine Creatinine Urine Total Protein Crossmatch 09/06/18 12:13 WBC RBC Hgb Hct MCV MCH MCHC RDW Lymph % (Auto) [place] % (Auto) Eos % (Auto) Lymph # [place] # Eos # Seg Neutrophils % Lymphocytes % (Manual) Seg Neutrophils # Lymphocytes # (Manual) PT INR APTT D-Dimer Heparin Anti-Xa Level POC ABG pH POC ABG pCO2 POC ABG pO2 Sodium Potassium Chloride Carbon Dioxide BUN Creatinine Glucose POC Glucose 177 H Lactic Acid Calcium Magnesium AST Alkaline Phosphatase Total Creatine Kinase CK-MB (CK-2) Troponin T C-Reactive Protein Total Protein Albumin Cholesterol LDL Cholesterol Direct HDL Cholesterol Free T4 Urine WBC (Auto) Urine Creatinine Urine Total Protein Crossmatch Chest x-ray: pending Allied health notes reviewed: nursing
[2018-09-06] MEDS: LASIX IV SCH (14:35)
[2018-09-06] MEDS: SOLU-Medrol IV SCH ×2 (14:36→21:33)
[2018-09-06] MEDS: BENADRYL IV SCH ×2 (14:36→22:53)
--- NOTE | 2018-09-06 14:37 | XRay Report ---
PROCEDURE: XR CHEST 1V AP TECHNIQUE: Chest radiograph single view. HISTORY: bloody tracheal secretions COMPARISONS: Chest x-ray August 25, 2018 . FINDINGS: Tracheostomy tube stable. Trachea midline. Heart size normal. No pneumothorax. No sizable effusion. Left perihilar and basilar airspace disease similar to prior study. No significant interval change. No acute bony abnormality IMPRESSION: No significant interval change. Left perihilar and basilar airspace disease.. This document is electronically signed by Dat Weiss MD., September 06 2018 02:35:11 PM ET
[2018-09-06] MEDS: LOVENOX SUB-Q SCH (21:32)
[2018-09-06] MEDS: LANTUS SUB-Q SCH (21:44)
[2018-09-07] MEDS: HumaLOG SUB-Q SCH ×6 (02:04→21:38)
[2018-09-07] MEDS: LASIX IV SCH ×2 (03:14→14:04)
[2018-09-07 05:48] LABS: Basophils % (Auto) 0.2 % (0.0-1.8); Hematocrit 25.2 % (35.5-45.6); Hemoglobin 8.5 gm/dl (11.8-15.2); Lymphocytes # (Auto) 0.8 K/mm3 (1.2-5.4); Lymphocytes % (Auto) 13.7 % (13.4-35.0); Mean Corpuscular HGB Conc 34 % (32-34); Mean Corpuscular Volume 82 fl (84-94); Monocytes # (Auto) 0.1 K/mm3 (0.0-0.8); Monocytes % (Auto) 1.3 % (0.0-7.3); Platelet Count 257 K/mm3 (140-440); Red Blood Count 3.08 M/mm3 (3.65-5.03); Red Cell Distribution Width 18.8 % (13.2-15.2)
[2018-09-07] MEDS: APRESOLINE PO SCH ×3 (06:02→21:37)
[2018-09-07] MEDS: SOLU-Medrol IV SCH ×3 (06:02→21:37)
[2018-09-07 06:07] LABS: BUN/Creatinine Ratio 43; Blood Urea Nitrogen 30 mg/dL (9-20); Calcium 8.4 mg/dL (8.4-10.2); Hemolysis Index 2
[2018-09-07] MEDS: BENADRYL IV SCH ×3 (06:18→22:31)
[2018-09-07] MEDS ORDERED: LANTUS SUB-Q ONE (10:00)
--- NOTE | 2018-09-07 10:00 | Progress Note ---
Assessment and Plan Assessment and plan: Patient is a 77 yo man from [facility] with a history of respiratory failure, CVA with tracheostomy and Gtube who presented to [facility] ED following cardiac arrest after being found unresponsive at the retirement. Time down is unknown per records. The patient is on the vent and unresponsive, all history is obtained from the chart. Patient had multiple episodes of arrest/pulselessness. He has been on the vent since then without any improvement. Per ER notes the patient was bagged via tracheostomy which continued to have low tidal volumes and so the patient with orally intubated after which tidal volumes improved. Initially, he went to [facility] may 05 to june 05, he had fluid on brain and multiple strokes per family and they drained the fluid off the brain. The trach was placed at [facility] and patient went to [facility], x 7 weeks (trach was changed where capped was placed), he was doing well, talking and sitting up. Then he went to [facility], August 03 Then on August 12, Friday, he had cardio-respiratory arrest. patient admitted here on 08/12/18. The ME brain flow scan showed reduced blood flow. Patient had evaluation by neurology who reports patient with intact brainstem function. Patient still comatose, no improvement. LTAC was recommended but denied. case management discussing options with family. Cardiopulmonary arrest x 3: Supportive care, cardiology and Pulm were following. Cardiology now signed off. Acute on chronic respiratory failure Trach has been removed when patient was orally intubated, continue ventilator management per pulmonology. Tracheostomy was replaced by surgery on 08/25/18. Tracheostomy care, airway clearance, secretion management Right pneumothorax, resolved. Status post chest tube, mgt per pulmonology Anoxic encephalopathy: neurology consult appreciated, poor prognosis, poor likelihood of recovery, preserved brain stem function otherwise unresponsive. EEG is suggestive hypoxic encephalopathy. Hypertension. On Hydralazine 100 mg 3 times a day Hypernatremia, Continue free water via G-tube, s/p hypotonic IV solution, monitor bmp closely Acute kidney injury likely due to ATN Nephrology following, continue IV fluid, avoid renal toxic agents NSTEMI: treated with IV heparin, asa, statin, no bblocker due to bradycardia, hypotension, Cardiology was following Severe protein calorie malnutrition: Dietitian consulted, continue tube feedings UTI/sepsis: Continue antibiotics, follow-up urine cultures-->no growth x 48 hours Type 2 dm with persistent hyperglycemia: cont insulins and adjust according, on tube feedings Anemia: s/p transfusion Hypertensive urgency Started norvasc Increased Hydralazine to 100mg tid Hydralazine iv prn Urinary retention: DVT prophylaxis; On Lovenox Disposition. Patient denied LTAC case management discussing options with family Poor prognosis The high probability of a clinically significant, sudden or life threatening deterioration of the [neurology and respiratory] system(s) required my full and direct attention, intervention and personal management. The aggregate critical care time was [32] minutes. This time is in addition to time spent performing reported procedures but includes the following: [x] Data Review and interpretation [x] Patient assessment and monitoring of vital signs [x] Documentation History Interval history: Still intubated, on vent still unresponsive No new events overnight Hospitalist Physical - Physical exam Narrative exam: Gen: Not in acute distress, lying in bed, intubated HEENT: Normocephalic, atraumatic Neck: supple, no JVD Heart: S1 and S2 reg, no murmurs, rubs or gallop Lungs: Clear, no crackles, no wheeze Abd: soft, non tender, non distended, normal BS Ext: no edema, clubbing or cyanosis Neuro:intubated, comatose,unresponsive - Constitutional Vitals: Temp Pulse Resp BP Pulse Ox 97.5 F L 74 12 144/71 100 09/07/18 08:00 09/07/18 08:52 09/07/18 07:00 09/07/18 08:52 09/07/18 08:52 General appearance: Present: other (twitching, nonresponsive, intubated) Results - Labs CBC & Chem 7: 09/07/18 04:55 09/07/18 04:55 Labs: Laboratory Last Values WBC 6.0 K/mm3 (4.5-11.0) 09/07/18 04:55 RBC 3.08 M/mm3 (3.65-5.03) L 09/07/18 04:55 Hgb 8.5 gm/dl (11.8-15.2) L 09/07/18 04:55 Hct 25.2 % (35.5-45.6) L 09/07/18 04:55 MCV 82 fl (84-94) L 09/07/18 04:55 MCH 28 pg (28-32) 09/07/18 04:55 MCHC 34 % (32-34) 09/07/18 04:55 RDW 18.8 % (13.2-15.2) H 09/07/18 04:55 Plt Count 257 K/mm3 (140-440) 09/07/18 04:55 Lymph % (Auto) 13.7 % (13.4-35.0) 09/07/18 04:55 [place] % (Auto) 1.3 % (0.0-7.3) 09/07/18 04:55 Eos % (Auto) 0.0 % (0.0-4.3) 09/07/18 04:55 Baso % (Auto) 0.2 % (0.0-1.8) 09/07/18 04:55 Lymph # 0.8 K/mm3 (1.2-5.4) L 09/07/18 04:55 [place] # 0.1 K/mm3 (0.0-0.8) 09/07/18 04:55 Eos # 0.0 K/mm3 (0.0-0.4) 09/07/18 04:55 Baso # 0.0 K/mm3 (0.0-0.1) 09/07/18 04:55 Add Manual Diff Complete 08/12/18 21:44 Total Counted 100 08/12/18 21:44 Seg Neutrophils % 84.8 % (40.0-70.0) H 09/07/18 04:55 Seg Neuts % (Manual) 44.0 % (40.0-70.0) 08/12/18 21:44 0 % 08/12/18 21:44 48.0 % (13.4-35.0) H 08/12/18 21:44 Reactive Lymphs % (Man) 0 % 08/12/18 21:44 2.0 % (0.0-7.3) 08/12/18 21:44 1.0 % (0.0-4.3) 08/12/18 21:44 0 % (0.0-1.8) 08/12/18 21:44 1.0 % 08/12/18 21:44 4.0 % 08/12/18 21:44 0 % 08/12/18 21:44 0 % 08/12/18 21:44 Nucleated RBC % Not Reportable 08/12/18 21:44 Seg Neutrophils # 5.1 K/mm3 (1.8-7.7) 09/07/18 04:55 Seg Neutrophils # Man 6.8 K/mm3 (1.8-7.7) 08/12/18 21:44 Band Neutrophils # 0.0 K/mm3 08/12/18 21:44 7.4 K/mm3 (1.2-5.4) H 08/12/18 21:44 Abs React Lymphs (Man) 0.0 K/mm3 08/12/18 21:44 0.3 K/mm3 (0.0-0.8) 08/12/18 21:44 0.2 K/mm3 (0.0-0.4) 08/12/18 21:44 0.0 K/mm3 (0.0-0.1) 08/12/18 21:44 0.2 K/mm3 08/12/18 21:44 0.6 K/mm3 08/12/18 21:44 0.0 K/mm3 08/12/18 21:44 Blast Cells # 0.0 K/mm3 08/12/18 21:44 WBC Morphology Not Reportable 08/12/18 21:44 Hypersegmented Neuts Not Reportable 08/12/18 21:44 Hyposegmented Neuts Not Reportable 08/12/18 21:44 Hypogranular Neuts Not Reportable 08/12/18 21:44 Not Reportable 08/12/18 21:44 Not Reportable 08/12/18 21:44 Not Reportable 08/12/18 21:44 Not Reportable 08/12/18 21:44 Not Reportable 08/12/18 21:44 Not Reportable 08/12/18 21:44 Consistent w auto 08/12/18 21:44 Not Reportable 08/12/18 21:44 Plt Clumps, EDTA Not Reportable 08/12/18 21:44 Not Reportable 08/12/18 21:44 Not Reportable 08/12/18 21:44 Not Reportable 08/12/18 21:44 Plt Morphology Comment Not Reportable 08/12/18 21:44 RBC Morphology Not Reportable 08/12/18 21:44 Dimorphic RBCs Not Reportable 08/12/18 21:44 Not Reportable 08/12/18 21:44 Not Reportable 08/12/18 21:44 Not Reportable 08/12/18 21:44 Few 08/12/18 21:44 Not Reportable 08/12/18 21:44 Not Reportable 08/12/18 21:44 Not Reportable 08/12/18 21:44 Not Reportable 08/12/18 21:44 Not Reportable 08/12/18 21:44 Not Reportable 08/12/18 21:44 Not Reportable 08/12/18 21:44 Few 08/12/18 21:44 Not Reportable 08/12/18 21:44 Not Reportable 08/12/18 21:44 Not Reportable 08/12/18 21:44 Not Reportable 08/12/18 21:44 Not Reportable 08/12/18 21:44 Not Reportable 08/12/18 21:44 Few 08/12/18 21:44 Acanthocytes (Spur) Not Reportable 08/12/18 21:44 Rouleaux Not Reportable 08/12/18 21:44 Not Reportable 08/12/18 21:44 Not Reportable 08/12/18 21:44 Not Reportable 08/12/18 21:44 Not Reportable 08/12/18 21:44 Hem Pathologist Commnt No 08/12/18 21:44 PT 16.5 Sec. (12.2-14.9) H 08/13/18 00:47 INR 1.25 (0.87-1.13) H 08/13/18 00:47 APTT 79.0 Sec. (24.2-36.6) H* 08/15/18 06:35 2742.50 ng/mlDDU (0-234) H 08/13/18 20:07 Heparin Anti-Xa Level 0.26 U.I./ml (0.3-0.7) L 08/16/18 20:01 POC ABG pH 7.478 (7.35-7.45) H 09/05/18 18:32 POC ABG pCO2 39.7 (35-45) 09/05/18 18:32 POC ABG pO2 138 (80-105) H 09/05/18 18:32 POC ABG HCO3 29.4 (22-26 mml/L) 09/05/18 18:32 POC ABG Total CO2 31 (23-27mmol/L) 09/05/18 18:32 POC ABG O2 Sat 99 09/05/18 18:32 POC ABG Base Excess 6 ((-2) - (+3)mmol/L) 09/05/18 18:32 30 % 09/05/18 18:32 Sodium 143 mmol/L (137-145) 09/07/18 04:55 Potassium 4.3 mmol/L (3.6-5.0) 09/07/18 04:55 Chloride 105.3 mmol/L (98-107) 09/07/18 04:55 Carbon Dioxide 27 mmol/L (22-30) 09/07/18 04:55 15 mmol/L 09/07/18 04:55 BUN 30 mg/dL (9-20) H 09/07/18 04:55 0.7 mg/dL (0.8-1.5) L 09/07/18 04:55 Estimated GFR > 60 ml/min 09/07/18 04:55 43 % 09/07/18 04:55 Glucose 291 mg/dL (75-100) H 09/07/18 04:55 POC Glucose 320 (70-105) H 09/07/18 06:02 Lactic Acid 2.80 mmol/L (0.7-2.0) H* 08/13/18 12:53 Calcium 8.4 mg/dL (8.4-10.2) 09/07/18 04:55 Phosphorus 3.90 mg/dL (2.5-4.5) 08/15/18 04:05 Magnesium 1.70 mg/dL (1.7-2.3) 09/06/18 14:35 < 0.20 mg/dL (0.1-1.2) 08/30/18 05:40 AST 50 units/L (5-40) H 08/30/18 05:40 ALT 31 units/L (7-56) 08/30/18 05:40 158 units/L (35-129) H 08/30/18 05:40 309 units/L (55-170) H 08/13/18 10:10 CK-MB (CK-2) 4.1 ng/mL (0.0-4.0) H 08/13/18 10:10 CK-MB (CK-2) Rel Index 1.3 (0-4) 08/13/18 10:10 0.409 ng/mL (0.00-0.029) H* 08/14/18 04:03 16.90 mg/dL (0.00-1.30) H 08/13/18 12:53 6.4 g/dL (6.3-8.2) 08/30/18 05:40 1.6 g/dL (3.9-5) L 08/30/18 05:40 0.3 % 08/30/18 05:40 Triglycerides 62 mg/dL (2-149) 08/13/18 00:32 Cholesterol 46 mg/dL (50-199) L 08/13/18 00:32 17 mg/dL (50-130) L 08/13/18 00:32 6 mg/dL (40-59) L 08/13/18 00:32 7.66 % 08/13/18 00:32 TSH 0.973 mlU/mL (0.270-4.200) 08/26/18 09:00 Free T4 0.51 ng/dL (0.76-1.46) L 08/26/18 09:00 Yellow (Yellow) 08/25/18 12:40 Turbid (Clear) 08/25/18 12:40 7.0 (5.0-7.0) 08/25/18 12:40 Ur Specific [place] 1.009 (1.003-1.030) 08/25/18 12:40 100 mg/dl mg/dL (Negative) 08/25/18 12:40 Neg mg/dL (Negative) 08/25/18 12:40 Neg mg/dL (Negative) 08/25/18 12:40 Mod (Negative) 08/25/18 12:40 Neg (Negative) 08/25/18 12:40 Neg (Negative) 08/25/18 12:40 < 2.0 mg/dL (<2.0) 08/25/18 12:40 Ur Leukocyte Esterase Lg (Negative) 08/25/18 12:40 > 182.0 /HPF (0.0-6.0) H 08/25/18 12:40 10.0 /HPF (0.0-6.0) 08/25/18 12:40 U Epithel Cells (Auto) 5.0 /HPF (0-13.0) 08/25/18 12:40 2+ /HPF (Negative) 08/13/18 00:50 3+ /HPF 08/25/18 12:40 None seen (None Seen) 08/14/18 17:20 60.9 mg/dL (0.1-20.0) H 08/14/18 17:20 32 mmol/L 08/14/18 17:20 64 mg/dL (5-11.8) H 08/14/18 17:20 Presumptive negative 08/12/18 21:30 Presumptive negative 08/12/18 21:30 Ur Barbiturates Screen Presumptive negative 08/12/18 21:30 Ur Phencyclidine Scrn Presumptive negative 08/12/18 21:30 Ur Amphetamines Screen Presumptive negative 08/12/18 21:30 U Benzodiazepines Scrn Presumptive negative 08/12/18 21:30 Presumptive negative 08/12/18 21:30 U Marijuana (THC) Screen Presumptive negative 08/12/18 21:30 Disclamer 08/12/18 21:30 Blood Type O POSITIVE 08/15/18 15:31 Antibody Screen Negative 08/15/18 15:31 Crossmatch See Detail 08/15/18 15:31 Active Medications - Current Medications Current Medications: Generic Name Dose Route Start Last Admin Trade Name Freq PRN Reason Stop Dose Admin Acetaminophen 650 mg 08/13/18 11:40 08/13/18 16:09 Tylenol PO 650 mg Q6H PRN Administration Fever >101 Amlodipine Besylate 5 mg 09/02/18 10:00 09/06/18 10:20 Norvasc FEEDTUBE 5 mg QDAY LENCHO Administration Lipase/Protease/Amylase 1 each 08/25/18 18:36 Pancreaze 10,500 Unit FEEDTUBE PRN PRN For Clogged Feeding Tube Aspirin 325 mg 08/17/18 10:00 09/06/18 10:20 Aspirin PO 325 mg QDAY LENCHO Administration Atorvastatin Calcium 40 mg 08/14/18 22:00 09/06/18 21:33 Lipitor PO 40 mg QHS LENCHO Administration Dextrose 50 ml 08/13/18 01:34 D50w (25gm) Syringe IV PRN PRN Hypoglycemia Diphenhydramine HCl 25 mg 09/06/18 15:00 09/07/18 06:18 Benadryl IV 09/09/18 14:59 25 mg Q8H LENCHO Administration Enoxaparin Sodium 40 mg 08/17/18 22:00 09/06/18 21:32 Lovenox SUB-Q 40 mg QDAY@2200 LENCHO Administration Famotidine 20 mg 08/19/18 10:00 09/06/18 21:33 Pepcid PO 20 mg BID LENCHO Administration Furosemide 20 mg 09/06/18 15:00 09/07/18 03:14 Lasix IV 09/08/18 03:01 20 mg Q12H LENCHO Administration Hydralazine HCl 100 mg 09/02/18 09:00 09/07/18 06:02 Apresoline PO 100 mg Q8HR LENCHO Administration Hydralazine HCl 20 mg 09/02/18 08:16 Apresoline IV Q4HR PRN SBP>160 or DBP>110 Hydrophilic Ointment 1 applic 08/13/18 12:21 Vaseline Lip Therapy TP Q2HR PRN Dry Lips Insulin Glargine 10 units 09/07/18 10:00 Lantus SUB-Q 09/07/18 10:01 ONCE ONE Insulin Glargine 35 units 09/07/18 22:00 Lantus SUB-Q QHS [facility] Insulin Human Lispro 0 unit 08/26/18 10:00 09/07/18 06:01 Humalog SUB-Q 6 unit Q4HR [facility] Administration Protocol Levetiracetam 500 mg 08/27/18 22:00 09/06/18 21:33 Keppra PO 500 mg BID [facility] Administration Methylprednisolone Sodium Succinate 60 mg 09/06/18 15:00 09/07/18 06:02 Solu-Medrol IV 60 mg Q8HR [facility] Administration Multi-Ingred Cream/Lotion/Oil/Oint 1 applic 08/13/18 12:21 08/17/18 00:41 Artificial Tears Ophth Oint OU 1 applic Q4HR PRN Administration Dry Eye(s) Ondansetron HCl 4 mg 08/13/18 01:34 Zofran IV Q8H PRN Nausea And Vomiting Simple Syrup 15 ml 08/25/18 18:36 Simple Syrup FEEDTUBE PRN PRN Hypoglycemia Simple Syrup 30 ml 08/25/18 18:36 Simple Syrup FEEDTUBE PRN PRN Hypoglycemia Sodium Bicarbonate 325 mg 08/25/18 18:36 Sodium Bicarbonate FEEDTUBE PRN PRN For Clogged Feeding Tube Sodium Chloride 10 ml 08/13/18 10:00 09/06/18 21:45 Sodium Chloride Flush Syringe 10 Ml IV 10 ml BID LENCHO Administration Sodium Chloride 10 ml 08/13/18 01:34 08/30/18 22:29 Sodium Chloride Flush Syringe 10 Ml IV 10 ml PRN PRN Administration LINE FLUSH Nutrition/Malnutrition Assess - Dietary Evaluation Nutrition/Malnutrition Findings: Nutrition Notes Start: 08/13/18 15:41 Freq: Status: Active Protocol: Document 09/03/18 16:28 RM (Rec: 09/03/18 16:32 RM [id number]) Nutrition Notes Initial or Follow up Reassessment Current Diagnosis Acute Kidney Injury,Diabetes Other Pertinent Diagnosis UTI, Hx CVA, PEG, Sacral PU, Multiple PU, Anoxic brain injury,R pneumothorax Current Diet Vital 1.2 at 60 ml/hr Labs/Tests Reviewed Pertinent Medications Reviewed Height 5 ft 8 in Weight 78.5 kg [place] Body Weight (kg) 70.00 BMI 26.3 Subjective/Other Information Observed Vital 1.2 hanging in room but not infusing. Nurse unsure why TF was off and turned it back on. Clinical Psychiatrist saw that TF rate was at goal. Stated that pt has been tolerating TF at goal. Percent of energy/protein needs met: 97%/100% Burn Absent Trauma Absent #1 Nutrition Diagnosis Inadequate oral intake Diagnosis Progress(for reassessment Continues documentation) Is patient on ventilator? Yes Is Patient Ambulatory and/or Out of Bed No REE-([place]-confined to bed) [phone] Calculation Used for Recommendations [facility] Additional Notes Protein Needs: 87-145g (1.2-2g /kg) Fluid Needs: 1 ml/kcal Nutrition Intervention Change Diet Order: TF Nutrition Support: Vital 1.2 at 60 ml/hr. Water flush of 250ml q4h for hypernatremia and 100 mls q 4 hrs once resolved. Kcal 1,728 Protein (gm) 108 Fluid (mL) 1,167 Fiber (gm) 7 Add Supplement/Snack (indicate name/kcal [place] BID /protein ) Provides kCal: 190 Provides Protein (gm) 5 Goal #1 Meet at least 80% of calorie and protein needs via TF Anticipated Discharge Needs: TF Follow-Up By: 09/10/18 Additional Comments Follow for TF tolerance
[2018-09-07] MEDS: PEPCID PO SCH ×2 (10:30→21:37)
[2018-09-07] MEDS: SODIUM CHLORIDE FLUSH SYRINGE 10 ML IV SCH ×2 (10:30→21:39)
[2018-09-07] MEDS: ASPIRIN PO SCH (10:30)
[2018-09-07] MEDS: NORVASC FEEDTUBE SCH (10:30)
[2018-09-07] MEDS: KEPPRA PO SCH ×2 (10:30→21:37)
--- NOTE | 2018-09-07 11:08 | Progress Note ---
Assessment and Plan Acute hypoxemic respiratory failure on chronic. Status post cardiac arrest. Seizure disorder with breakthrough seizures. History of diabetes. History of cerebrovascular accident. Oropharyngeal dysphagia. History of seizures. - complete empiric diuresis (lasix 20 mg i.v. bid X 4 doses) - continue solumedrol and benadryl along with his pepcid for angioedema - continue RTC t-piece trials as tolerated at this point - resume PSV trials as tolerated (if fails t-piece) - prognosis for significant neurologic recovery to prior baseline (which per his is to be able to respond appropriately) is poor; his is not interested in decelerating care at this point - continue to avoid sedatives - prn ABG's & CXR's at this point - continue Keppra for seizures with prn ativan IV for breakthrough (now dosed at 500mg IV bid) - continue provigil - continue bronchodilators with routine trach care and pulmonary hygiene per RT - neurology evaluation noted and input appreciated - continue GI & VTE prophylaxis - continue to wean supplemental oxygen to keep O2 sats 88-90% - Lung protective strategies - VAP bundle addressed - Continue cardioprotective measures - Replete electrolytes as indicated - Continue to rest at night on full MVS - Monitor renal indices closely - Avoid nephrotoxic agents, adjust all medications for CrCL - Strict intake and output monitoring - continue enteral nutrition as tolerated - continue accuchecks with glycemic control per SSI for target glucose of 140- 180 mg/dL (Lantus re-introduced) - Maintenance of sleep -wake cycle modalities - Mobility as tolerated by hemodynamics - Influenza and pneumonia vaccination per protocol - discharge planning ongoing concurrently .... care plan discussed at length with in room again today PROGNOSIS: GUARDED CONDITION: CRITICAL CODE STATUS: FULL CODE The high probability of a clinically significant, sudden or life-threatening deterioration of the [respiratory, neurology, renal] system(s) required my full and direct attention, intervention and personal management. The aggregate critical care time was [31] minutes without overlap. Time includes spent on; [x] Data Review and interpretation [x] Patient assessment and monitoring of vital signs [x] Documentation [x] Medication orders and management Subjective Date of service: 09/07/18 Principal diagnosis: Acute hypoxemic resp failure; S/P cardiac arrest; Seizures; DM II; H/O CVA Interval history: Patient is seen today for: Acute hypoxemic respiratory failure on chronic; Status post cardiac arrest; Seizure disorder with breakthrough seizures; History of diabetes; History of cerebrovascular accident; Oropharyngeal dysphagia; History of seizures. Seen and examined at bedside; 24hour events reviewed; nursing and respiratory care staff consulted; no adverse overnight events reported to me; rested on MVS; tolerated T-piece well yesterday with good ventilation; AMS is persistent; ton arabella swelling is better; in room; no emesis or overt aspiration Objective Vital Signs - 12hr 09/07/18 09/07/18 09/07/18 00:00 00:06 00:19 Temperature 97.1 F L Pulse Rate 79 76 72 Pulse Rate [ 76 From Monitor] Respiratory 12 15 Rate Blood Pressure 113/64 113/64 113/64 O2 Sat by Pulse 100 100 100 Oximetry 09/07/18 09/07/18 09/07/18 01:00 02:00 03:00 Temperature Pulse Rate 71 69 74 Pulse Rate [ From Monitor] Respiratory 11 L 13 12 Rate Blood Pressure 119/68 130/68 120/72 O2 Sat by Pulse 100 100 100 Oximetry 09/07/18 09/07/18 09/07/18 03:21 04:00 05:00 Temperature 97.5 F L Pulse Rate 70 69 68 Pulse Rate [ 68 From Monitor] Respiratory 12 12 Rate Blood Pressure 120/72 125/68 137/71 O2 Sat by Pulse 100 100 100 Oximetry 09/07/18 09/07/18 09/07/18 06:00 07:00 08:00 Temperature 97.5 F L Pulse Rate 67 66 Pulse Rate [ From Monitor] Respiratory 11 L 12 Rate Blood Pressure 137/71 130/70 O2 Sat by Pulse 100 100 Oximetry 09/07/18 09/07/18 08:51 08:52 Temperature Pulse Rate 74 Pulse Rate [ From Monitor] Respiratory Rate Blood Pressure 144/71 O2 Sat by Pulse 100 100 Oximetry Constitutional: no acute distress, other (Elderly looking AAM, normocephalic resting in bed on MVS) Eyes: non-icteric, injected, other (+periorbital swelling) ENT: oropharynx moist Neck: supple, no lymphadenopathy, no JVD, other (s/p tracheostomy) Effort: mildly labored Ascultation: Bilateral: diminished breath sounds, rhonchi Percussion: Bilateral: not dull Cardiovascular: regular rate and rhythm Gastrointestinal: normoactive bowel sounds, soft, non-tender, non-distended Integumentary: normal Extremities: no cyanosis, pulses normal, no ischemia or petechiae, edema (trace ) Neurologic: unable to assess, other (slight pupillary constriction to light) Psychiatric: other (unable to assess) CBC and BMP: 09/08/18 04:22 09/08/18 04:22 ABG, PT/INR, D-dimer: ABG POC ABG pH 7.478 (7.35-7.45) H 09/05/18 18:32 POC ABG pCO2 39.7 (35-45) 09/05/18 18:32 POC ABG pO2 138 (80-105) H 09/05/18 18:32 POC ABG HCO3 29.4 (22-26 mml/L) 09/05/18 18:32 POC ABG Total CO2 31 (23-27mmol/L) 09/05/18 18:32 POC ABG O2 Sat 99 09/05/18 18:32 PT/INR, D-dimer PT 16.5 Sec. (12.2-14.9) H 08/13/18 00:47 INR 1.25 (0.87-1.13) H 08/13/18 00:47 2742.50 ng/mlDDU (0-234) H 08/13/18 20:07 Abnormal lab findings: Abnormal Labs 08/12/18 08/12/18 08/12/18 21:44 21:44 21:44 WBC 15.5 H RBC 3.12 L Hgb 8.8 L Hct 28.9 L MCV MCH MCHC 31 L RDW 19.5 H Lymph % (Auto) Mobile % (Auto) Eos % (Auto) Lymph # Mobile # Eos # Seg Neutrophils % Lymphocytes % (Manual) 48.0 H Seg Neutrophils # Lymphocytes # (Manual) 7.4 H PT 17.8 H INR 1.37 H APTT D-Dimer Heparin Anti-Xa Level POC ABG pH POC ABG pCO2 POC ABG pO2 Sodium 159 H Potassium Chloride 118.5 H Carbon Dioxide BUN 34 H Creatinine Glucose 161 H POC Glucose Lactic Acid Calcium Magnesium AST Alkaline Phosphatase Total Creatine Kinase CK-MB (CK-2) Troponin T 0.105 H* C-Reactive Protein Total Protein Albumin Cholesterol LDL Cholesterol Direct HDL Cholesterol Free T4 Urine WBC (Auto) Urine Creatinine Urine Total Protein Crossmatch 08/13/18 08/13/18 08/13/18 00:32 00:47 00:47 WBC RBC Hgb 9.2 L Hct 29.6 L MCV MCH MCHC RDW Lymph % (Auto) Mobile % (Auto) Eos % (Auto) Lymph # Mobile # Eos # Seg Neutrophils % Lymphocytes % (Manual) Seg Neutrophils # Lymphocytes # (Manual) PT 16.5 H INR 1.25 H APTT 37.3 H D-Dimer Heparin Anti-Xa Level POC ABG pH POC ABG pCO2 POC ABG pO2 Sodium Potassium Chloride Carbon Dioxide BUN Creatinine Glucose POC Glucose Lactic Acid Calcium Magnesium AST Alkaline Phosphatase Total Creatine Kinase 211 H CK-MB (CK-2) 7.7 H Troponin T 0.169 H* D C-Reactive Protein Total Protein Albumin Cholesterol 46 L LDL Cholesterol Direct 17 L HDL Cholesterol 6 L Free T4 Urine WBC (Auto) Urine Creatinine Urine Total Protein Crossmatch 08/13/18 08/13/18 08/13/18 00:50 02:25 05:34 WBC RBC Hgb Hct MCV MCH MCHC RDW Lymph % (Auto) Mobile % (Auto) Eos % (Auto) Lymph # Mobile # Eos # Seg Neutrophils % Lymphocytes % (Manual) Seg Neutrophils # Lymphocytes # (Manual) PT INR APTT D-Dimer Heparin Anti-Xa Level POC ABG pH 7.503 H POC ABG pCO2 POC ABG pO2 253 H Sodium Potassium Chloride Carbon Dioxide BUN Creatinine Glucose POC Glucose Lactic Acid Calcium Magnesium AST Alkaline Phosphatase Total Creatine Kinase 311 H CK-MB (CK-2) 10.4 H Troponin T 0.283 H* D C-Reactive Protein Total Protein Albumin Cholesterol LDL Cholesterol Direct HDL Cholesterol Free T4 Urine WBC (Auto) > 182.0 H Urine Creatinine Urine Total Protein Crossmatch 08/13/18 08/13/18 08/13/18 06:35 10:10 10:10 WBC RBC Hgb Hct MCV MCH MCHC RDW Lymph % (Auto) Mobile % (Auto) Eos % (Auto) Lymph # Mobile # Eos # Seg Neutrophils % Lymphocytes % (Manual) Seg Neutrophils # Lymphocytes # (Manual) PT INR APTT D-Dimer Heparin Anti-Xa Level POC ABG pH 7.554 H POC ABG pCO2 33.5 L POC ABG pO2 220 H Sodium 158 H Potassium Chloride 117.1 H Carbon Dioxide BUN 53 H Creatinine 2.0 H Glucose 247 H POC Glucose Lactic Acid Calcium 8.2 L Magnesium AST Alkaline Phosphatase Total Creatine Kinase 309 H CK-MB (CK-2) 4.1 H Troponin T 0.470 H* D C-Reactive Protein Total Protein Albumin Cholesterol LDL Cholesterol Direct HDL Cholesterol Free T4 Urine WBC (Auto) Urine Creatinine Urine Total Protein Crossmatch 08/13/18 08/13/18 08/13/18 12:53 12:53 17:55 WBC RBC Hgb Hct MCV MCH MCHC RDW Lymph % (Auto) Mobile % (Auto) Eos % (Auto) Lymph # Mobile # Eos # Seg Neutrophils % Lymphocytes % (Manual) Seg Neutrophils # Lymphocytes # (Manual) PT INR APTT D-Dimer Heparin Anti-Xa Level POC ABG pH POC ABG pCO2 POC ABG pO2 Sodium Potassium Chloride Carbon Dioxide BUN Creatinine Glucose POC Glucose 308 H Lactic Acid 2.80 H* Calcium Magnesium 2.50 H AST Alkaline Phosphatase Total Creatine Kinase CK-MB (CK-2) Troponin T C-Reactive Protein 16.90 H Total Protein Albumin Cholesterol LDL Cholesterol Direct HDL Cholesterol Free T4 Urine WBC (Auto) Urine Creatinine Urine Total Protein Crossmatch 08/13/18 08/13/18 08/13/18 20:07 21:16 23:17 WBC RBC Hgb Hct MCV MCH MCHC RDW Lymph % (Auto) Mobile % (Auto) Eos % (Auto) Lymph # Mobile # Eos # Seg Neutrophils % Lymphocytes % (Manual) Seg Neutrophils # Lymphocytes # (Manual) PT INR APTT D-Dimer 2742.50 H Heparin Anti-Xa Level POC ABG pH 7.483 H POC ABG pCO2 30.8 L POC ABG pO2 150 H Sodium Potassium Chloride Carbon Dioxide BUN Creatinine Glucose POC Glucose 245 H Lactic Acid Calcium Magnesium AST Alkaline Phosphatase Total Creatine Kinase CK-MB (CK-2) Troponin T C-Reactive Protein Total Protein Albumin Cholesterol LDL Cholesterol Direct HDL Cholesterol Free T4 Urine WBC (Auto) Urine Creatinine Urine Total Protein Crossmatch 08/14/18 08/14/18 08/14/18 04:03 04:03 04:56 WBC 18.2 H RBC 2.62 L Hgb 7.3 L Hct 24.5 L MCV MCH MCHC RDW 18.9 H Lymph % (Auto) Mobile % (Auto) Eos % (Auto) Lymph # Mobile # 1.2 H Eos # Seg Neutrophils % 79.4 H Lymphocytes % (Manual) Seg Neutrophils # 14.5 H Lymphocytes # (Manual) PT INR APTT D-Dimer Heparin Anti-Xa Level POC ABG pH POC ABG pCO2 33.5 L POC ABG pO2 153 H Sodium 152 H Potassium 3.4 L Chloride 113.8 H Carbon Dioxide BUN 72 H Creatinine 2.7 H Glucose 239 H POC Glucose Lactic Acid Calcium 7.6 L Magnesium AST 50 H Alkaline Phosphatase 219 H Total Creatine Kinase CK-MB (CK-2) Troponin T 0.409 H* C-Reactive Protein Total Protein 6.2 L Albumin 1.9 L Cholesterol LDL Cholesterol Direct HDL Cholesterol Free T4 Urine WBC (Auto) Urine Creatinine Urine Total Protein Crossmatch 08/14/18 08/14/18 08/14/18 05:18 13:38 15:35 WBC RBC Hgb Hct MCV MCH MCHC RDW Lymph % (Auto) Mobile % (Auto) Eos % (Auto) Lymph # Mobile # Eos # Seg Neutrophils % Lymphocytes % (Manual) Seg Neutrophils # Lymphocytes # (Manual) PT INR APTT D-Dimer Heparin Anti-Xa Level POC ABG pH POC ABG pCO2 POC ABG pO2 Sodium 150 H Potassium 3.2 L Chloride 114.5 H Carbon Dioxide BUN 69 H Creatinine 2.3 H Glucose 247 H POC Glucose 242 H 296 H Lactic Acid Calcium 7.2 L Magnesium AST Alkaline Phosphatase Total Creatine Kinase CK-MB (CK-2) Troponin T C-Reactive Protein Total Protein Albumin Cholesterol LDL Cholesterol Direct HDL Cholesterol Free T4 Urine WBC (Auto) Urine Creatinine Urine Total Protein Crossmatch 08/14/18 08/14/18 08/14/18 17:01 17:20 23:47 WBC RBC Hgb Hct MCV MCH MCHC RDW Lymph % (Auto) Mobile % (Auto) Eos % (Auto) Lymph # Mobile # Eos # Seg Neutrophils % Lymphocytes % (Manual) Seg Neutrophils # Lymphocytes # (Manual) PT INR APTT D-Dimer Heparin Anti-Xa Level POC ABG pH POC ABG pCO2 POC ABG pO2 Sodium Potassium Chloride Carbon Dioxide BUN Creatinine Glucose POC Glucose 261 H 280 H Lactic Acid Calcium Magnesium AST Alkaline Phosphatase Total Creatine Kinase CK-MB (CK-2) Troponin T C-Reactive Protein Total Protein Albumin Cholesterol LDL Cholesterol Direct HDL Cholesterol Free T4 Urine WBC (Auto) Urine Creatinine 60.9 H Urine Total Protein 64 H Crossmatch 08/15/18 08/15/1819 04:05 04:05 04:05 WBC RBC Hgb 6.3 L Hct 19.7 L* MCV MCH MCHC RDW Lymph % (Auto) Mobile % (Auto) Eos % (Auto) Lymph # Mobile # Eos # Seg Neutrophils % Lymphocytes % (Manual) Seg Neutrophils # Lymphocytes # (Manual) PT INR APTT D-Dimer Heparin Anti-Xa Level 0.17 L POC ABG pH POC ABG pCO2 POC ABG pO2 Sodium 146 H Potassium 3.0 L Chloride 110.6 H Carbon Dioxide BUN 64 H Creatinine 2.2 H Glucose 231 H POC Glucose Lactic Acid Calcium 7.1 L Magnesium AST Alkaline Phosphatase Total Creatine Kinase CK-MB (CK-2) Troponin T C-Reactive Protein Total Protein Albumin Cholesterol LDL Cholesterol Direct HDL Cholesterol Free T4 Urine WBC (Auto) Urine Creatinine Urine Total Protein Crossmatch 08/15/18 08/15/18 08/15/18 05:21 05:26 06:35 WBC RBC Hgb Hct MCV MCH MCHC RDW Lymph % (Auto) Mobile % (Auto) Eos % (Auto) Lymph # Mobile # Eos # Seg Neutrophils % Lymphocytes % (Manual) Seg Neutrophils # Lymphocytes # (Manual) PT INR APTT 79.0 H* D-Dimer Heparin Anti-Xa Level POC ABG pH 7.494 H POC ABG pCO2 POC ABG pO2 155 H Sodium Potassium Chloride Carbon Dioxide BUN Creatinine Glucose POC Glucose 271 H Lactic Acid Calcium Magnesium AST Alkaline Phosphatase Total Creatine Kinase CK-MB (CK-2) Troponin T C-Reactive Protein Total Protein Albumin Cholesterol LDL Cholesterol Direct HDL Cholesterol Free T4 Urine WBC (Auto) Urine Creatinine Urine Total Protein Crossmatch 08/15/18 08/15/18 08/15/18 12:10 15:31 17:27 WBC RBC Hgb Hct MCV MCH MCHC RDW Lymph % (Auto) Mobile % (Auto) Eos % (Auto) Lymph # Mobile # Eos # Seg Neutrophils % Lymphocytes % (Manual) Seg Neutrophils # Lymphocytes # (Manual) PT INR APTT D-Dimer Heparin Anti-Xa Level POC ABG pH POC ABG pCO2 POC ABG pO2 Sodium Potassium Chloride Carbon Dioxide BUN Creatinine Glucose POC Glucose 301 H 287 H Lactic Acid Calcium Magnesium AST Alkaline Phosphatase Total Creatine Kinase CK-MB (CK-2) Troponin T C-Reactive Protein Total Protein Albumin Cholesterol LDL Cholesterol Direct HDL Cholesterol Free T4 Urine WBC (Auto) Urine Creatinine Urine Total Protein Crossmatch See Detail 08/15/18 08/15/18 08/16/18 21:41 23:45 04:13 WBC RBC Hgb Hct MCV MCH MCHC RDW Lymph % (Auto) Mobile % (Auto) Eos % (Auto) Lymph # Mobile # Eos # Seg Neutrophils % Lymphocytes % (Manual) Seg Neutrophils # Lymphocytes # (Manual) PT INR APTT D-Dimer Heparin Anti-Xa Level 0.19 L POC ABG pH POC ABG pCO2 32.1 L POC ABG pO2 107 H Sodium Potassium Chloride Carbon Dioxide BUN Creatinine Glucose POC Glucose 163 H Lactic Acid Calcium Magnesium AST Alkaline Phosphatase Total Creatine Kinase CK-MB (CK-2) Troponin T C-Reactive Protein Total Protein Albumin Cholesterol LDL Cholesterol Direct HDL Cholesterol Free T4 Urine WBC (Auto) Urine Creatinine Urine Total Protein Crossmatch 08/16/18 08/16/18 08/16/18 04:50 05:28 11:30 WBC RBC 2.67 L Hgb 8.1 L Hct 23.4 L MCV MCH MCHC 35 H RDW 18.3 H Lymph % (Auto) Mobile % (Auto) Eos % (Auto) Lymph # Mobile # Eos # Seg Neutrophils % Lymphocytes % (Manual) Seg Neutrophils # Lymphocytes # (Manual) PT INR APTT D-Dimer Heparin Anti-Xa Level 0.19 L POC ABG pH POC ABG pCO2 POC ABG pO2 Sodium Potassium Chloride Carbon Dioxide BUN Creatinine Glucose POC Glucose 141 H Lactic Acid Calcium Magnesium AST Alkaline Phosphatase Total Creatine Kinase CK-MB (CK-2) Troponin T C-Reactive Protein Total Protein Albumin Cholesterol LDL Cholesterol Direct HDL Cholesterol Free T4 Urine WBC (Auto) Urine Creatinine Urine Total Protein Crossmatch 08/16/18 08/16/18 08/16/18 11:30 12:00 12:01 WBC RBC Hgb Hct MCV MCH MCHC RDW Lymph % (Auto) Mobile % (Auto) Eos % (Auto) Lymph # Mobile # Eos # Seg Neutrophils % Lymphocytes % (Manual) Seg Neutrophils # Lymphocytes # (Manual) PT INR APTT D-Dimer Heparin Anti-Xa Level 0.15 L POC ABG pH POC ABG pCO2 POC ABG pO2 Sodium Potassium Chloride 107.8 H Carbon Dioxide 21 L BUN 47 H Creatinine 1.6 H Glucose 221 H POC Glucose 267 H Lactic Acid Calcium 6.9 L Magnesium AST Alkaline Phosphatase Total Creatine Kinase CK-MB (CK-2) Troponin T C-Reactive Protein Total Protein Albumin Cholesterol LDL Cholesterol Direct HDL Cholesterol Free T4 Urine WBC (Auto) Urine Creatinine Urine Total Protein Crossmatch 08/16/18 08/16/18 08/16/18 17:23 20:01 23:13 WBC RBC Hgb Hct MCV MCH MCHC RDW Lymph % (Auto) Mobile % (Auto) Eos % (Auto) Lymph # Mobile # Eos # Seg Neutrophils % Lymphocytes % (Manual) Seg Neutrophils # Lymphocytes # (Manual) PT INR APTT D-Dimer Heparin Anti-Xa Level 0.26 L POC ABG pH POC ABG pCO2 POC ABG pO2 Sodium Potassium Chloride Carbon Dioxide BUN Creatinine Glucose POC Glucose 245 H 256 H Lactic Acid Calcium Magnesium AST Alkaline Phosphatase Total Creatine Kinase CK-MB (CK-2) Troponin T C-Reactive Protein Total Protein Albumin Cholesterol LDL Cholesterol Direct HDL Cholesterol Free T4 Urine WBC (Auto) Urine Creatinine Urine Total Protein Crossmatch 08/17/18 08/17/18 08/17/18 04:29 04:55 05:34 WBC RBC Hgb 8.2 L Hct 24.3 L MCV MCH MCHC RDW Lymph % (Auto) Mobile % (Auto) Eos % (Auto) Lymph # Mobile # Eos # Seg Neutrophils % Lymphocytes % (Manual) Seg Neutrophils # Lymphocytes # (Manual) PT INR APTT D-Dimer Heparin Anti-Xa Level POC ABG pH POC ABG pCO2 32.4 L POC ABG pO2 108 H Sodium Potassium Chloride Carbon Dioxide BUN Creatinine Glucose POC Glucose 268 H Lactic Acid Calcium Magnesium AST Alkaline Phosphatase Total Creatine Kinase CK-MB (CK-2) Troponin T C-Reactive Protein Total Protein Albumin Cholesterol LDL Cholesterol Direct HDL Cholesterol Free T4 Urine WBC (Auto) Urine Creatinine Urine Total Protein Crossmatch 08/17/18 08/17/18 08/17/18 11:54 13:44 17:24 WBC RBC Hgb Hct MCV MCH MCHC RDW Lymph % (Auto) Mobile % (Auto) Eos % (Auto) Lymph # Mobile # Eos # Seg Neutrophils % Lymphocytes % (Manual) Seg Neutrophils # Lymphocytes # (Manual) PT INR APTT D-Dimer Heparin Anti-Xa Level POC ABG pH POC ABG pCO2 32.7 L POC ABG pO2 142 H Sodium Potassium Chloride Carbon Dioxide BUN Creatinine Glucose POC Glucose 295 H 283 H Lactic Acid Calcium Magnesium AST Alkaline Phosphatase Total Creatine Kinase CK-MB (CK-2) Troponin T C-Reactive Protein Total Protein Albumin Cholesterol LDL Cholesterol Direct HDL Cholesterol Free T4 Urine WBC (Auto) Urine Creatinine Urine Total Protein Crossmatch 08/18/18 08/18/18 08/18/18 00:05 00:59 04:15 WBC RBC Hgb Hct MCV MCH MCHC RDW Lymph % (Auto) Mobile % (Auto) Eos % (Auto) Lymph # Mobile # Eos # Seg Neutrophils % Lymphocytes % (Manual) Seg Neutrophils # Lymphocytes # (Manual) PT INR APTT D-Dimer Heparin Anti-Xa Level POC ABG pH POC ABG pCO2 POC ABG pO2 115 H Sodium Potassium Chloride Carbon Dioxide BUN Creatinine Glucose POC Glucose 247 H 251 H Lactic Acid Calcium Magnesium AST Alkaline Phosphatase Total Creatine Kinase CK-MB (CK-2) Troponin T C-Reactive Protein Total Protein Albumin Cholesterol LDL Cholesterol Direct HDL Cholesterol Free T4 Urine WBC (Auto) Urine Creatinine Urine Total Protein Crossmatch 08/18/18 08/18/18 08/18/18 05:02 12:20 17:51 WBC RBC Hgb Hct MCV MCH MCHC RDW Lymph % (Auto) Mobile % (Auto) Eos % (Auto) Lymph # Mobile # Eos # Seg Neutrophils % Lymphocytes % (Manual) Seg Neutrophils # Lymphocytes # (Manual) PT INR APTT D-Dimer Heparin Anti-Xa Level POC ABG pH POC ABG pCO2 POC ABG pO2 Sodium Potassium Chloride Carbon Dioxide BUN Creatinine Glucose POC Glucose 282 H 209 H 261 H Lactic Acid Calcium Magnesium AST Alkaline Phosphatase Total Creatine Kinase CK-MB (CK-2) Troponin T C-Reactive Protein Total Protein Albumin Cholesterol LDL Cholesterol Direct HDL Cholesterol Free T4 Urine WBC (Auto) Urine Creatinine Urine Total Protein Crossmatch 08/18/18 08/19/18 08/19/18 23:30 04:54 05:16 WBC RBC 2.62 L Hgb 7.5 L Hct 23.1 L MCV MCH MCHC RDW 18.1 H Lymph % (Auto) Mobile % (Auto) Eos % (Auto) Lymph # Mobile # Eos # Seg Neutrophils % Lymphocytes % (Manual) Seg Neutrophils # Lymphocytes # (Manual) PT INR APTT D-Dimer Heparin Anti-Xa Level POC ABG pH POC ABG pCO2 POC ABG pO2 58 L Sodium Potassium Chloride Carbon Dioxide BUN Creatinine Glucose POC Glucose 231 H Lactic Acid Calcium Magnesium AST Alkaline Phosphatase Total Creatine Kinase CK-MB (CK-2) Troponin T C-Reactive Protein Total Protein Albumin Cholesterol LDL Cholesterol Direct HDL Cholesterol Free T4 Urine WBC (Auto) Urine Creatinine Urine Total Protein Crossmatch 08/19/18 08/19/18 08/19/18 05:16 05:40 11:56 WBC RBC Hgb Hct MCV MCH MCHC RDW Lymph % (Auto) Mobile % (Auto) Eos % (Auto) Lymph # Mobile # Eos # Seg Neutrophils % Lymphocytes % (Manual) Seg Neutrophils # Lymphocytes # (Manual) PT INR APTT D-Dimer Heparin Anti-Xa Level POC ABG pH POC ABG pCO2 POC ABG pO2 Sodium 152 H D Potassium Chloride 118.7 H Carbon Dioxide BUN 38 H Creatinine Glucose 220 H POC Glucose 227 H 213 H Lactic Acid Calcium 8.1 L D Magnesium AST Alkaline Phosphatase Total Creatine Kinase CK-MB (CK-2) Troponin T C-Reactive Protein Total Protein Albumin Cholesterol LDL Cholesterol Direct HDL Cholesterol Free T4 Urine WBC (Auto) Urine Creatinine Urine Total Protein Crossmatch 08/19/18 08/19/18 08/20/18 18:37 23:32 04:38 WBC RBC Hgb Hct MCV MCH MCHC RDW Lymph % (Auto) Mobile % (Auto) Eos % (Auto) Lymph # Mobile # Eos # Seg Neutrophils % Lymphocytes % (Manual) Seg Neutrophils # Lymphocytes # (Manual) PT INR APTT D-Dimer Heparin Anti-Xa Level POC ABG pH POC ABG pCO2 POC ABG pO2 140 H Sodium Potassium Chloride Carbon Dioxide BUN Creatinine Glucose POC Glucose 227 H 245 H Lactic Acid Calcium Magnesium AST Alkaline Phosphatase Total Creatine Kinase CK-MB (CK-2) Troponin T C-Reactive Protein Total Protein Albumin Cholesterol LDL Cholesterol Direct HDL Cholesterol Free T4 Urine WBC (Auto) Urine Creatinine Urine Total Protein Crossmatch 08/20/18 08/20/18 08/20/18 05:31 05:37 05:37 WBC RBC 2.60 L Hgb 7.5 L Hct 22.9 L MCV MCH MCHC RDW 18.4 H Lymph % (Auto) Mobile % (Auto) Eos % (Auto) Lymph # Mobile # Eos # Seg Neutrophils % Lymphocytes % (Manual) Seg Neutrophils # Lymphocytes # (Manual) PT INR APTT D-Dimer Heparin Anti-Xa Level POC ABG pH POC ABG pCO2 POC ABG pO2 Sodium 150 H Potassium Chloride 115.6 H Carbon Dioxide BUN 38 H Creatinine Glucose 276 H POC Glucose 266 H Lactic Acid Calcium 7.9 L Magnesium AST Alkaline Phosphatase Total Creatine Kinase CK-MB (CK-2) Troponin T C-Reactive Protein Total Protein Albumin Cholesterol LDL Cholesterol Direct HDL Cholesterol Free T4 Urine WBC (Auto) Urine Creatinine Urine Total Protein Crossmatch 08/20/18 08/20/18 08/20/18 14:01 18:20 23:11 WBC RBC Hgb Hct MCV MCH MCHC RDW Lymph % (Auto) Mobile % (Auto) Eos % (Auto) Lymph # Mobile # Eos # Seg Neutrophils % Lymphocytes % (Manual) Seg Neutrophils # Lymphocytes # (Manual) PT INR APTT D-Dimer Heparin Anti-Xa Level POC ABG pH POC ABG pCO2 POC ABG pO2 Sodium Potassium Chloride Carbon Dioxide BUN Creatinine Glucose POC Glucose 305 H 271 H 218 H Lactic Acid Calcium Magnesium AST Alkaline Phosphatase Total Creatine Kinase CK-MB (CK-2) Troponin T C-Reactive Protein Total Protein Albumin Cholesterol LDL Cholesterol Direct HDL Cholesterol Free T4 Urine WBC (Auto) Urine Creatinine Urine Total Protein Crossmatch 08/21/18 08/21/18 08/21/18 04:41 04:41 06:20 WBC RBC 2.65 L Hgb 7.6 L Hct 23.3 L MCV MCH MCHC RDW 19.1 H Lymph % (Auto) Mobile % (Auto) Eos % (Auto) Lymph # Mobile # Eos # Seg Neutrophils % Lymphocytes % (Manual) Seg Neutrophils # Lymphocytes # (Manual) PT INR APTT D-Dimer Heparin Anti-Xa Level POC ABG pH POC ABG pCO2 POC ABG pO2 Sodium 150 H Potassium Chloride 117.8 H Carbon Dioxide BUN 37 H Creatinine Glucose 233 H POC Glucose 262 H Lactic Acid Calcium 7.9 L Magnesium AST Alkaline Phosphatase Total Creatine Kinase CK-MB (CK-2) Troponin T C-Reactive Protein Total Protein Albumin Cholesterol LDL Cholesterol Direct HDL Cholesterol Free T4 Urine WBC (Auto) Urine Creatinine Urine Total Protein Crossmatch 08/21/18 08/21/18 08/21/18 10:18 12:04 12:36 WBC RBC Hgb Hct MCV MCH MCHC RDW Lymph % (Auto) Mobile % (Auto) Eos % (Auto) Lymph # Mobile # Eos # Seg Neutrophils % Lymphocytes % (Manual) Seg Neutrophils # Lymphocytes # (Manual) PT INR APTT D-Dimer Heparin Anti-Xa Level POC ABG pH POC ABG pCO2 POC ABG pO2 Sodium Potassium Chloride Carbon Dioxide BUN Creatinine Glucose POC Glucose 256 H 245 H 255 H Lactic Acid Calcium Magnesium AST Alkaline Phosphatase Total Creatine Kinase CK-MB (CK-2) Troponin T C-Reactive Protein Total Protein Albumin Cholesterol LDL Cholesterol Direct HDL Cholesterol Free T4 Urine WBC (Auto) Urine Creatinine Urine Total Protein Crossmatch 08/21/18 08/21/18 08/22/18 17:36 23:29 05:01 WBC RBC Hgb Hct MCV MCH MCHC RDW Lymph % (Auto) Mobile % (Auto) Eos % (Auto) Lymph # Mobile # Eos # Seg Neutrophils % Lymphocytes % (Manual) Seg Neutrophils # Lymphocytes # (Manual) PT INR APTT D-Dimer Heparin Anti-Xa Level POC ABG pH 7.466 H POC ABG pCO2 33.8 L POC ABG pO2 111 H Sodium Potassium Chloride Carbon Dioxide BUN Creatinine Glucose POC Glucose 263 H 268 H Lactic Acid Calcium Magnesium AST Alkaline Phosphatase Total Creatine Kinase CK-MB (CK-2) Troponin T C-Reactive Protein Total Protein Albumin Cholesterol LDL Cholesterol Direct HDL Cholesterol Free T4 Urine WBC (Auto) Urine Creatinine Urine Total Protein Crossmatch 08/22/18 08/22/18 08/22/18 05:05 12:05 12:15 WBC RBC Hgb Hct MCV MCH MCHC RDW Lymph % (Auto) Mobile % (Auto) Eos % (Auto) Lymph # Mobile # Eos # Seg Neutrophils % Lymphocytes % (Manual) Seg Neutrophils # Lymphocytes # (Manual) PT INR APTT D-Dimer Heparin Anti-Xa Level POC ABG pH POC ABG pCO2 POC ABG pO2 Sodium 147 H Potassium Chloride 113.2 H Carbon Dioxide BUN 36 H Creatinine Glucose 249 H POC Glucose 256 H 228 H Lactic Acid Calcium 8.2 L Magnesium AST Alkaline Phosphatase Total Creatine Kinase CK-MB (CK-2) Troponin T C-Reactive Protein Total Protein Albumin Cholesterol LDL Cholesterol Direct HDL Cholesterol Free T4 Urine WBC (Auto) Urine Creatinine Urine Total Protein Crossmatch 08/22/18 08/23/18 08/23/18 17:30 00:03 05:05 WBC RBC Hgb Hct MCV MCH MCHC RDW Lymph % (Auto) Mobile % (Auto) Eos % (Auto) Lymph # Mobile # Eos # Seg Neutrophils % Lymphocytes % (Manual) Seg Neutrophils # Lymphocytes # (Manual) PT INR APTT D-Dimer Heparin Anti-Xa Level POC ABG pH POC ABG pCO2 POC ABG pO2 Sodium Potassium Chloride Carbon Dioxide BUN Creatinine Glucose POC Glucose 291 H 259 H 247 H Lactic Acid Calcium Magnesium AST Alkaline Phosphatase Total Creatine Kinase CK-MB (CK-2) Troponin T C-Reactive Protein Total Protein Albumin Cholesterol LDL Cholesterol Direct HDL Cholesterol Free T4 Urine WBC (Auto) Urine Creatinine Urine Total Protein Crossmatch 08/23/18 08/23/18 08/23/18 05:14 12:29 17:21 WBC RBC Hgb Hct MCV MCH MCHC RDW Lymph % (Auto) Mobile % (Auto) Eos % (Auto) Lymph # Mobile # Eos # Seg Neutrophils % Lymphocytes % (Manual) Seg Neutrophils # Lymphocytes # (Manual) PT INR APTT D-Dimer Heparin Anti-Xa Level POC ABG pH POC ABG pCO2 POC ABG pO2 Sodium Potassium Chloride Carbon Dioxide BUN Creatinine Glucose POC Glucose 208 H 138 H 175 H Lactic Acid Calcium Magnesium AST Alkaline Phosphatase Total Creatine Kinase CK-MB (CK-2) Troponin T C-Reactive Protein Total Protein Albumin Cholesterol LDL Cholesterol Direct HDL Cholesterol Free T4 Urine WBC (Auto) Urine Creatinine Urine Total Protein Crossmatch 08/23/18 08/24/18 08/24/18 23:36 01:00 05:50 WBC RBC 2.92 L 2.90 L Hgb 8.3 L 8.2 L Hct 25.4 L 25.2 L MCV MCH MCHC RDW 18.9 H 18.6 H Lymph % (Auto) Mobile % (Auto) 9.2 H Eos % (Auto) Lymph # Mobile # Eos # Seg Neutrophils % Lymphocytes % (Manual) Seg Neutrophils # Lymphocytes # (Manual) PT INR APTT D-Dimer Heparin Anti-Xa Level POC ABG pH POC ABG pCO2 POC ABG pO2 Sodium Potassium Chloride Carbon Dioxide BUN Creatinine Glucose POC Glucose 163 H Lactic Acid Calcium Magnesium AST Alkaline Phosphatase Total Creatine Kinase CK-MB (CK-2) Troponin T C-Reactive Protein Total Protein Albumin Cholesterol LDL Cholesterol Direct HDL Cholesterol Free T4 Urine WBC (Auto) Urine Creatinine Urine Total Protein Crossmatch 08/24/18 08/24/18 08/24/18 05:50 12:26 18:37 WBC RBC Hgb Hct MCV MCH MCHC RDW Lymph % (Auto) Mobile % (Auto) Eos % (Auto) Lymph # Mobile # Eos # Seg Neutrophils % Lymphocytes % (Manual) Seg Neutrophils # Lymphocytes # (Manual) PT INR APTT D-Dimer Heparin Anti-Xa Level POC ABG pH POC ABG pCO2 POC ABG pO2 Sodium 147 H Potassium Chloride 113.6 H Carbon Dioxide BUN 33 H Creatinine Glucose 210 H POC Glucose 223 H 166 H Lactic Acid Calcium 8.3 L Magnesium AST Alkaline Phosphatase Total Creatine Kinase CK-MB (CK-2) Troponin T C-Reactive Protein Total Protein Albumin Cholesterol LDL Cholesterol Direct HDL Cholesterol Free T4 Urine WBC (Auto) Urine Creatinine Urine Total Protein Crossmatch 08/24/18 08/25/18 08/25/18 23:47 04:55 04:55 WBC RBC 2.94 L Hgb 8.4 L Hct 25.1 L MCV MCH MCHC RDW 18.2 H Lymph % (Auto) Mobile % (Auto) Eos % (Auto) Lymph # Mobile # Eos # Seg Neutrophils % Lymphocytes % (Manual) Seg Neutrophils # Lymphocytes # (Manual) PT INR APTT D-Dimer Heparin Anti-Xa Level POC ABG pH POC ABG pCO2 POC ABG pO2 Sodium Potassium Chloride 110.2 H Carbon Dioxide BUN 30 H Creatinine Glucose POC Glucose 126 H Lactic Acid Calcium 8.1 L Magnesium AST Alkaline Phosphatase Total Creatine Kinase CK-MB (CK-2) Troponin T C-Reactive Protein Total Protein Albumin Cholesterol LDL Cholesterol Direct HDL Cholesterol Free T4 Urine WBC (Auto) Urine Creatinine Urine Total Protein Crossmatch 08/25/18 08/26/18 08/26/18 12:40 04:39 04:39 WBC RBC 2.96 L Hgb 8.3 L Hct 25.7 L MCV MCH MCHC RDW 18.2 H Lymph % (Auto) 10.5 L Mobile % (Auto) 9.3 H Eos % (Auto) Lymph # 0.8 L Mobile # Eos # Seg Neutrophils % 77.0 H Lymphocytes % (Manual) Seg Neutrophils # Lymphocytes # (Manual) PT INR APTT D-Dimer Heparin Anti-Xa Level POC ABG pH POC ABG pCO2 POC ABG pO2 Sodium 147 H Potassium Chloride 113.5 H Carbon Dioxide BUN 27 H Creatinine 0.7 L Glucose 106 H POC Glucose Lactic Acid Calcium 8.0 L Magnesium AST Alkaline Phosphatase Total Creatine Kinase CK-MB (CK-2) Troponin T C-Reactive Protein Total Protein Albumin Cholesterol LDL Cholesterol Direct HDL Cholesterol Free T4 Urine WBC (Auto) > 182.0 H Urine Creatinine Urine Total Protein Crossmatch 08/26/18 08/26/18 08/26/18 05:27 09:00 09:54 WBC RBC Hgb Hct MCV MCH MCHC RDW Lymph % (Auto) Mobile % (Auto) Eos % (Auto) Lymph # Mobile # Eos # Seg Neutrophils % Lymphocytes % (Manual) Seg Neutrophils # Lymphocytes # (Manual) PT INR APTT D-Dimer Heparin Anti-Xa Level POC ABG pH POC ABG pCO2 POC ABG pO2 Sodium Potassium Chloride Carbon Dioxide BUN Creatinine Glucose POC Glucose 120 H 170 H Lactic Acid Calcium Magnesium AST Alkaline Phosphatase Total Creatine Kinase CK-MB (CK-2) Troponin T C-Reactive Protein Total Protein Albumin Cholesterol LDL Cholesterol Direct HDL Cholesterol Free T4 0.51 L Urine WBC (Auto) Urine Creatinine Urine Total Protein Crossmatch 08/26/18 08/26/18 08/27/18 14:52 17:50 06:30 WBC RBC Hgb Hct MCV MCH MCHC RDW Lymph % (Auto) Mobile % (Auto) Eos % (Auto) Lymph # Mobile # Eos # Seg Neutrophils % Lymphocytes % (Manual) Seg Neutrophils # Lymphocytes # (Manual) PT INR APTT D-Dimer Heparin Anti-Xa Level POC ABG pH POC ABG pCO2 POC ABG pO2 Sodium 150 H Potassium Chloride 114.8 H Carbon Dioxide BUN 24 H Creatinine 0.7 L Glucose 131 H POC Glucose 166 H 107 H Lactic Acid Calcium 7.8 L Magnesium AST Alkaline Phosphatase Total Creatine Kinase CK-MB (CK-2) Troponin T C-Reactive Protein Total Protein Albumin Cholesterol LDL Cholesterol Direct HDL Cholesterol Free T4 Urine WBC (Auto) Urine Creatinine Urine Total Protein Crossmatch 08/27/18 08/27/18 08/27/18 08:22 14:20 16:06 WBC RBC Hgb Hct MCV MCH MCHC RDW Lymph % (Auto) Mobile % (Auto) Eos % (Auto) Lymph # Mobile # Eos # Seg Neutrophils % Lymphocytes % (Manual) Seg Neutrophils # Lymphocytes # (Manual) PT INR APTT D-Dimer Heparin Anti-Xa Level POC ABG pH POC ABG pCO2 POC ABG pO2 Sodium Potassium Chloride Carbon Dioxide BUN Creatinine Glucose POC Glucose 112 H 151 H 158 H Lactic Acid Calcium Magnesium AST Alkaline Phosphatase Total Creatine Kinase CK-MB (CK-2) Troponin T C-Reactive Protein Total Protein Albumin Cholesterol LDL Cholesterol Direct HDL Cholesterol Free T4 Urine WBC (Auto) Urine Creatinine Urine Total Protein Crossmatch 08/27/18 08/27/18 08/28/18 20:09 21:25 02:03 WBC RBC Hgb Hct MCV MCH MCHC RDW Lymph % (Auto) Mobile % (Auto) Eos % (Auto) Lymph # Mobile # Eos # Seg Neutrophils % Lymphocytes % (Manual) Seg Neutrophils # Lymphocytes # (Manual) PT INR APTT D-Dimer Heparin Anti-Xa Level POC ABG pH POC ABG pCO2 POC ABG pO2 130 H Sodium Potassium Chloride Carbon Dioxide BUN Creatinine Glucose POC Glucose 226 H 250 H Lactic Acid Calcium Magnesium AST Alkaline Phosphatase Total Creatine Kinase CK-MB (CK-2) Troponin T C-Reactive Protein Total Protein Albumin Cholesterol LDL Cholesterol Direct HDL Cholesterol Free T4 Urine WBC (Auto) Urine Creatinine Urine Total Protein Crossmatch 08/28/18 08/28/18 08/28/18 05:56 07:15 13:17 WBC RBC Hgb Hct MCV MCH MCHC RDW Lymph % (Auto) Mobile % (Auto) Eos % (Auto) Lymph # Mobile # Eos # Seg Neutrophils % Lymphocytes % (Manual) Seg Neutrophils # Lymphocytes # (Manual) PT INR APTT D-Dimer Heparin Anti-Xa Level POC ABG pH POC ABG pCO2 POC ABG pO2 Sodium Potassium Chloride Carbon Dioxide BUN Creatinine Glucose 198 H POC Glucose 221 H 188 H Lactic Acid Calcium 7.7 L Magnesium AST Alkaline Phosphatase Total Creatine Kinase CK-MB (CK-2) Troponin T C-Reactive Protein Total Protein Albumin Cholesterol LDL Cholesterol Direct HDL Cholesterol Free T4 Urine WBC (Auto) Urine Creatinine Urine Total Protein Crossmatch 08/28/18 08/28/18 08/28/18 15:53 18:12 22:35 WBC RBC Hgb Hct MCV MCH MCHC RDW Lymph % (Auto) Mobile % (Auto) Eos % (Auto) Lymph # Mobile # Eos # Seg Neutrophils % Lymphocytes % (Manual) Seg Neutrophils # Lymphocytes # (Manual) PT INR APTT D-Dimer Heparin Anti-Xa Level POC ABG pH 7.457 H POC ABG pCO2 POC ABG pO2 Sodium Potassium Chloride Carbon Dioxide BUN Creatinine Glucose POC Glucose 197 H 225 H Lactic Acid Calcium Magnesium AST Alkaline Phosphatase Total Creatine Kinase CK-MB (CK-2) Troponin T C-Reactive Protein Total Protein Albumin Cholesterol LDL Cholesterol Direct HDL Cholesterol Free T4 Urine WBC (Auto) Urine Creatinine Urine Total Protein Crossmatch 08/29/18 08/29/18 08/29/18 03:04 10:47 14:25 WBC RBC Hgb Hct MCV MCH MCHC RDW Lymph % (Auto) Mobile % (Auto) Eos % (Auto) Lymph # Mobile # Eos # Seg Neutrophils % Lymphocytes % (Manual) Seg Neutrophils # Lymphocytes # (Manual) PT INR APTT D-Dimer Heparin Anti-Xa Level POC ABG pH POC ABG pCO2 POC ABG pO2 Sodium Potassium Chloride Carbon Dioxide BUN Creatinine Glucose POC Glucose 223 H 371 H 266 H Lactic Acid Calcium Magnesium AST Alkaline Phosphatase Total Creatine Kinase CK-MB (CK-2) Troponin T C-Reactive Protein Total Protein Albumin Cholesterol LDL Cholesterol Direct HDL Cholesterol Free T4 Urine WBC (Auto) Urine Creatinine Urine Total Protein Crossmatch 08/29/18 08/29/18 08/29/18 16:45 17:36 21:33 WBC RBC Hgb Hct MCV MCH MCHC RDW Lymph % (Auto) Mobile % (Auto) Eos % (Auto) Lymph # Mobile # Eos # Seg Neutrophils % Lymphocytes % (Manual) Seg Neutrophils # Lymphocytes # (Manual) PT INR APTT D-Dimer Heparin Anti-Xa Level POC ABG pH POC ABG pCO2 POC ABG pO2 118 H Sodium Potassium Chloride Carbon Dioxide BUN Creatinine Glucose POC Glucose 253 H 204 H Lactic Acid Calcium Magnesium AST Alkaline Phosphatase Total Creatine Kinase CK-MB (CK-2) Troponin T C-Reactive Protein Total Protein Albumin Cholesterol LDL Cholesterol Direct HDL Cholesterol Free T4 Urine WBC (Auto) Urine Creatinine Urine Total Protein Crossmatch 08/30/18 08/30/18 08/30/18 01:33 05:27 05:40 WBC RBC 3.12 L Hgb 8.5 L Hct 25.9 L MCV 83 L MCH 27 L MCHC RDW 18.3 H Lymph % (Auto) Mobile % (Auto) 7.8 H Eos % (Auto) 8.8 H Lymph # Mobile # Eos # 0.6 H Seg Neutrophils % Lymphocytes % (Manual) Seg Neutrophils # Lymphocytes # (Manual) PT INR APTT D-Dimer Heparin Anti-Xa Level POC ABG pH POC ABG pCO2 POC ABG pO2 Sodium Potassium Chloride Carbon Dioxide BUN Creatinine Glucose POC Glucose 157 H 178 H Lactic Acid Calcium Magnesium AST Alkaline Phosphatase Total Creatine Kinase CK-MB (CK-2) Troponin T C-Reactive Protein Total Protein Albumin Cholesterol LDL Cholesterol Direct HDL Cholesterol Free T4 Urine WBC (Auto) Urine Creatinine Urine Total Protein Crossmatch 08/30/18 08/30/18 08/30/18 05:40 09:28 11:41 WBC RBC Hgb Hct MCV MCH MCHC RDW Lymph % (Auto) Mobile % (Auto) Eos % (Auto) Lymph # Mobile # Eos # Seg Neutrophils % Lymphocytes % (Manual) Seg Neutrophils # Lymphocytes # (Manual) PT INR APTT D-Dimer Heparin Anti-Xa Level POC ABG pH POC ABG pCO2 POC ABG pO2 Sodium Potassium Chloride Carbon Dioxide BUN Creatinine 0.7 L Glucose 189 H POC Glucose 216 H 257 H Lactic Acid Calcium 8.2 L Magnesium AST 50 H Alkaline Phosphatase 158 H Total Creatine Kinase CK-MB (CK-2) Troponin T C-Reactive Protein Total Protein Albumin 1.6 L Cholesterol LDL Cholesterol Direct HDL Cholesterol Free T4 Urine WBC (Auto) Urine Creatinine Urine Total Protein Crossmatch 08/30/18 08/30/18 08/30/18 14:34 17:07 21:56 WBC RBC Hgb Hct MCV MCH MCHC RDW Lymph % (Auto) Mobile % (Auto) Eos % (Auto) Lymph # Mobile # Eos # Seg Neutrophils % Lymphocytes % (Manual) Seg Neutrophils # Lymphocytes # (Manual) PT INR APTT D-Dimer Heparin Anti-Xa Level POC ABG pH POC ABG pCO2 POC ABG pO2 Sodium Potassium Chloride Carbon Dioxide BUN Creatinine Glucose POC Glucose 263 H 263 H 234 H Lactic Acid Calcium Magnesium AST Alkaline Phosphatase Total Creatine Kinase CK-MB (CK-2) Troponin T C-Reactive Protein Total Protein Albumin Cholesterol LDL Cholesterol Direct HDL Cholesterol Free T4 Urine WBC (Auto) Urine Creatinine Urine Total Protein Crossmatch 08/31/18 08/31/18 08/31/18 02:02 05:29 09:24 WBC RBC Hgb Hct MCV MCH MCHC RDW Lymph % (Auto) Mobile % (Auto) Eos % (Auto) Lymph # Mobile # Eos # Seg Neutrophils % Lymphocytes % (Manual) Seg Neutrophils # Lymphocytes # (Manual) PT INR APTT D-Dimer Heparin Anti-Xa Level POC ABG pH POC ABG pCO2 POC ABG pO2 Sodium Potassium Chloride Carbon Dioxide BUN Creatinine Glucose POC Glucose 151 H 156 H 107 H Lactic Acid Calcium Magnesium AST Alkaline Phosphatase Total Creatine Kinase CK-MB (CK-2) Troponin T C-Reactive Protein Total Protein Albumin Cholesterol LDL Cholesterol Direct HDL Cholesterol Free T4 Urine WBC (Auto) Urine Creatinine Urine Total Protein Crossmatch 08/31/18 08/31/18 08/31/18 13:51 17:28 21:40 WBC RBC Hgb Hct MCV MCH MCHC RDW Lymph % (Auto) Mobile % (Auto) Eos % (Auto) Lymph # Mobile # Eos # Seg Neutrophils % Lymphocytes % (Manual) Seg Neutrophils # Lymphocytes # (Manual) PT INR APTT D-Dimer Heparin Anti-Xa Level POC ABG pH POC ABG pCO2 POC ABG pO2 Sodium Potassium Chloride Carbon Dioxide BUN Creatinine Glucose POC Glucose 170 H 239 H 209 H Lactic Acid Calcium Magnesium AST Alkaline Phosphatase Total Creatine Kinase CK-MB (CK-2) Troponin T C-Reactive Protein Total Protein Albumin Cholesterol LDL Cholesterol Direct HDL Cholesterol Free T4 Urine WBC (Auto) Urine Creatinine Urine Total Protein Crossmatch 08/31/18 08/31/18 09/01/18 22:25 22:25 01:47 WBC RBC Hgb Hct MCV MCH MCHC RDW Lymph % (Auto) Mobile % (Auto) Eos % (Auto) Lymph # Mobile # Eos # Seg Neutrophils % Lymphocytes % (Manual) Seg Neutrophils # Lymphocytes # (Manual) PT INR APTT D-Dimer Heparin Anti-Xa Level POC ABG pH POC ABG pCO2 45.6 H POC ABG pO2 135 H Sodium Potassium Chloride Carbon Dioxide BUN Creatinine Glucose POC Glucose 208 H 223 H Lactic Acid Calcium Magnesium AST Alkaline Phosphatase Total Creatine Kinase CK-MB (CK-2) Troponin T C-Reactive Protein Total Protein Albumin Cholesterol LDL Cholesterol Direct HDL Cholesterol Free T4 Urine WBC (Auto) Urine Creatinine Urine Total Protein Crossmatch 09/01/18 09/01/18 09/01/18 05:18 05:19 05:19 WBC RBC 3.08 L Hgb 8.5 L Hct 25.6 L MCV 83 L MCH MCHC RDW 18.7 H Lymph % (Auto) Mobile % (Auto) 7.9 H Eos % (Auto) 6.1 H Lymph # Mobile # Eos # Seg Neutrophils % Lymphocytes % (Manual) Seg Neutrophils # Lymphocytes # (Manual) PT INR APTT D-Dimer Heparin Anti-Xa Level POC ABG pH POC ABG pCO2 POC ABG pO2 Sodium Potassium Chloride 107.9 H Carbon Dioxide BUN 21 H Creatinine 0.7 L Glucose 188 H POC Glucose 236 H Lactic Acid Calcium Magnesium AST Alkaline Phosphatase Total Creatine Kinase CK-MB (CK-2) Troponin T C-Reactive Protein Total Protein Albumin Cholesterol LDL Cholesterol Direct HDL Cholesterol Free T4 Urine WBC (Auto) Urine Creatinine Urine Total Protein Crossmatch 09/01/18 09/01/18 09/01/18 09:29 14:25 18:20 WBC RBC Hgb Hct MCV MCH MCHC RDW Lymph % (Auto) Mobile % (Auto) Eos % (Auto) Lymph # Mobile # Eos # Seg Neutrophils % Lymphocytes % (Manual) Seg Neutrophils # Lymphocytes # (Manual) PT INR APTT D-Dimer Heparin Anti-Xa Level POC ABG pH POC ABG pCO2 POC ABG pO2 Sodium Potassium Chloride Carbon Dioxide BUN Creatinine Glucose POC Glucose 231 H 294 H 215 H Lactic Acid Calcium Magnesium AST Alkaline Phosphatase Total Creatine Kinase CK-MB (CK-2) Troponin T C-Reactive Protein Total Protein Albumin Cholesterol LDL Cholesterol Direct HDL Cholesterol Free T4 Urine WBC (Auto) Urine Creatinine Urine Total Protein Crossmatch 09/01/18 09/02/18 09/02/18 21:21 03:28 05:25 WBC RBC Hgb Hct MCV MCH MCHC RDW Lymph % (Auto) Mobile % (Auto) Eos % (Auto) Lymph # Mobile # Eos # Seg Neutrophils % Lymphocytes % (Manual) Seg Neutrophils # Lymphocytes # (Manual) PT INR APTT D-Dimer Heparin Anti-Xa Level POC ABG pH POC ABG pCO2 POC ABG pO2 Sodium Potassium Chloride Carbon Dioxide BUN Creatinine Glucose POC Glucose 236 H 194 H 183 H Lactic Acid Calcium Magnesium AST Alkaline Phosphatase Total Creatine Kinase CK-MB (CK-2) Troponin T C-Reactive Protein Total Protein Albumin Cholesterol LDL Cholesterol Direct HDL Cholesterol Free T4 Urine WBC (Auto) Urine Creatinine Urine Total Protein Crossmatch 09/02/18 09/02/18 09/02/18 09:16 15:30 17:20 WBC RBC Hgb Hct MCV MCH MCHC RDW Lymph % (Auto) Mobile % (Auto) Eos % (Auto) Lymph # Mobile # Eos # Seg Neutrophils % Lymphocytes % (Manual) Seg Neutrophils # Lymphocytes # (Manual) PT INR APTT D-Dimer Heparin Anti-Xa Level POC ABG pH POC ABG pCO2 POC ABG pO2 Sodium Potassium Chloride Carbon Dioxide BUN Creatinine Glucose POC Glucose 251 H 303 H 316 H Lactic Acid Calcium Magnesium AST Alkaline Phosphatase Total Creatine Kinase CK-MB (CK-2) Troponin T C-Reactive Protein Total Protein Albumin Cholesterol LDL Cholesterol Direct HDL Cholesterol Free T4 Urine WBC (Auto) Urine Creatinine Urine Total Protein Crossmatch 09/02/18 09/03/18 09/03/18 21:25 03:32 05:20 WBC RBC Hgb Hct MCV MCH MCHC RDW Lymph % (Auto) Mobile % (Auto) Eos % (Auto) Lymph # Mobile # Eos # Seg Neutrophils % Lymphocytes % (Manual) Seg Neutrophils # Lymphocytes # (Manual) PT INR APTT D-Dimer Heparin Anti-Xa Level POC ABG pH POC ABG pCO2 POC ABG pO2 Sodium Potassium Chloride Carbon Dioxide BUN Creatinine Glucose POC Glucose 242 H 305 H 225 H Lactic Acid Calcium Magnesium AST Alkaline Phosphatase Total Creatine Kinase CK-MB (CK-2) Troponin T C-Reactive Protein Total Protein Albumin Cholesterol LDL Cholesterol Direct HDL Cholesterol Free T4 Urine WBC (Auto) Urine Creatinine Urine Total Protein Crossmatch 09/03/18 09/03/18 09/03/18 07:52 07:52 10:19 WBC RBC 3.29 L Hgb 9.0 L Hct 27.3 L MCV 83 L MCH 27 L MCHC RDW 18.4 H Lymph % (Auto) Mobile % (Auto) Eos % (Auto) Lymph # Mobile # Eos # Seg Neutrophils % Lymphocytes % (Manual) Seg Neutrophils # Lymphocytes # (Manual) PT INR APTT D-Dimer Heparin Anti-Xa Level POC ABG pH POC ABG pCO2 POC ABG pO2 Sodium Potassium Chloride Carbon Dioxide BUN 23 H Creatinine Glucose 205 H POC Glucose 228 H Lactic Acid Calcium 7.9 L Magnesium AST Alkaline Phosphatase Total Creatine Kinase CK-MB (CK-2) Troponin T C-Reactive Protein Total Protein Albumin Cholesterol LDL Cholesterol Direct HDL Cholesterol Free T4 Urine WBC (Auto) Urine Creatinine Urine Total Protein Crossmatch 09/03/18 09/03/18 09/03/18 13:42 17:22 21:33 WBC RBC Hgb Hct MCV MCH MCHC RDW Lymph % (Auto) Mobile % (Auto) Eos % (Auto) Lymph # Mobile # Eos # Seg Neutrophils % Lymphocytes % (Manual) Seg Neutrophils # Lymphocytes # (Manual) PT INR APTT D-Dimer Heparin Anti-Xa Level POC ABG pH POC ABG pCO2 POC ABG pO2 Sodium Potassium Chloride Carbon Dioxide BUN Creatinine Glucose POC Glucose 221 H 186 H 179 H Lactic Acid Calcium Magnesium AST Alkaline Phosphatase Total Creatine Kinase CK-MB (CK-2) Troponin T C-Reactive Protein Total Protein Albumin Cholesterol LDL Cholesterol Direct HDL Cholesterol Free T4 Urine WBC (Auto) Urine Creatinine Urine Total Protein Crossmatch 09/04/18 09/04/18 09/04/18 02:07 05:54 11:03 WBC RBC Hgb Hct MCV MCH MCHC RDW Lymph % (Auto) Mobile % (Auto) Eos % (Auto) Lymph # Mobile # Eos # Seg Neutrophils % Lymphocytes % (Manual) Seg Neutrophils # Lymphocytes # (Manual) PT INR APTT D-Dimer Heparin Anti-Xa Level POC ABG pH POC ABG pCO2 POC ABG pO2 Sodium Potassium Chloride Carbon Dioxide BUN Creatinine Glucose POC Glucose 174 H 171 H 181 H Lactic Acid Calcium Magnesium AST Alkaline Phosphatase Total Creatine Kinase CK-MB (CK-2) Troponin T C-Reactive Protein Total Protein Albumin Cholesterol LDL Cholesterol Direct HDL Cholesterol Free T4 Urine WBC (Auto) Urine Creatinine Urine Total Protein Crossmatch 09/04/18 09/04/18 09/04/18 14:59 18:24 21:50 WBC RBC Hgb Hct MCV MCH MCHC RDW Lymph % (Auto) Mobile % (Auto) Eos % (Auto) Lymph # Mobile # Eos # Seg Neutrophils % Lymphocytes % (Manual) Seg Neutrophils # Lymphocytes # (Manual) PT INR APTT D-Dimer Heparin Anti-Xa Level POC ABG pH POC ABG pCO2 POC ABG pO2 Sodium Potassium Chloride Carbon Dioxide BUN Creatinine Glucose POC Glucose 204 H 236 H 197 H Lactic Acid Calcium Magnesium AST Alkaline Phosphatase Total Creatine Kinase CK-MB (CK-2) Troponin T C-Reactive Protein Total Protein Albumin Cholesterol LDL Cholesterol Direct HDL Cholesterol Free T4 Urine WBC (Auto) Urine Creatinine Urine Total Protein Crossmatch 09/05/18 09/05/18 09/05/18 01:32 04:52 04:52 WBC RBC 3.16 L Hgb 8.7 L Hct 26.0 L MCV 82 L MCH MCHC RDW 18.9 H Lymph % (Auto) Mobile % (Auto) Eos % (Auto) Lymph # Mobile # Eos # Seg Neutrophils % Lymphocytes % (Manual) Seg Neutrophils # Lymphocytes # (Manual) PT INR APTT D-Dimer Heparin Anti-Xa Level POC ABG pH POC ABG pCO2 POC ABG pO2 Sodium Potassium Chloride 107.2 H Carbon Dioxide BUN 23 H Creatinine 0.7 L Glucose 215 H POC Glucose 210 H Lactic Acid Calcium 8.3 L Magnesium AST Alkaline Phosphatase Total Creatine Kinase CK-MB (CK-2) Troponin T C-Reactive Protein Total Protein Albumin Cholesterol LDL Cholesterol Direct HDL Cholesterol Free T4 Urine WBC (Auto) Urine Creatinine Urine Total Protein Crossmatch 09/05/18 09/05/18 09/05/18 05:36 10:26 13:11 WBC RBC Hgb Hct MCV MCH MCHC RDW Lymph % (Auto) Mobile % (Auto) Eos % (Auto) Lymph # Mobile # Eos # Seg Neutrophils % Lymphocytes % (Manual) Seg Neutrophils # Lymphocytes # (Manual) PT INR APTT D-Dimer Heparin Anti-Xa Level POC ABG pH POC ABG pCO2 POC ABG pO2 Sodium Potassium Chloride Carbon Dioxide BUN Creatinine Glucose POC Glucose 216 H 206 H 161 H Lactic Acid Calcium Magnesium AST Alkaline Phosphatase Total Creatine Kinase CK-MB (CK-2) Troponin T C-Reactive Protein Total Protein Albumin Cholesterol LDL Cholesterol Direct HDL Cholesterol Free T4 Urine WBC (Auto) Urine Creatinine Urine Total Protein Crossmatch 09/05/18 09/05/18 09/05/18 18:27 18:32 22:05 WBC RBC Hgb Hct MCV MCH MCHC RDW Lymph % (Auto) Mobile % (Auto) Eos % (Auto) Lymph # Mobile # Eos # Seg Neutrophils % Lymphocytes % (Manual) Seg Neutrophils # Lymphocytes # (Manual) PT INR APTT D-Dimer Heparin Anti-Xa Level POC ABG pH 7.478 H POC ABG pCO2 POC ABG pO2 138 H Sodium Potassium Chloride Carbon Dioxide BUN Creatinine Glucose POC Glucose 154 H 149 H Lactic Acid Calcium Magnesium AST Alkaline Phosphatase Total Creatine Kinase CK-MB (CK-2) Troponin T C-Reactive Protein Total Protein Albumin Cholesterol LDL Cholesterol Direct HDL Cholesterol Free T4 Urine WBC (Auto) Urine Creatinine Urine Total Protein Crossmatch 09/06/18 09/06/18 09/06/18 04:40 08:30 10:06 WBC RBC Hgb Hct MCV MCH MCHC RDW Lymph % (Auto) Mobile % (Auto) Eos % (Auto) Lymph # Mobile # Eos # Seg Neutrophils % Lymphocytes % (Manual) Seg Neutrophils # Lymphocytes # (Manual) PT INR APTT D-Dimer Heparin Anti-Xa Level POC ABG pH POC ABG pCO2 POC ABG pO2 Sodium Potassium Chloride Carbon Dioxide BUN Creatinine Glucose POC Glucose 140 H 188 H 199 H Lactic Acid Calcium Magnesium AST Alkaline Phosphatase Total Creatine Kinase CK-MB (CK-2) Troponin T C-Reactive Protein Total Protein Albumin Cholesterol LDL Cholesterol Direct HDL Cholesterol Free T4 Urine WBC (Auto) Urine Creatinine Urine Total Protein Crossmatch 09/06/18 09/06/18 09/06/18 12:13 14:23 17:11 WBC RBC Hgb Hct MCV MCH MCHC RDW Lymph % (Auto) Mobile % (Auto) Eos % (Auto) Lymph # Mobile # Eos # Seg Neutrophils % Lymphocytes % (Manual) Seg Neutrophils # Lymphocytes # (Manual) PT INR APTT D-Dimer Heparin Anti-Xa Level POC ABG pH POC ABG pCO2 POC ABG pO2 Sodium Potassium Chloride Carbon Dioxide BUN Creatinine Glucose POC Glucose 177 H 180 H 216 H Lactic Acid Calcium Magnesium AST Alkaline Phosphatase Total Creatine Kinase CK-MB (CK-2) Troponin T C-Reactive Protein Total Protein Albumin Cholesterol LDL Cholesterol Direct HDL Cholesterol Free T4 Urine WBC (Auto) Urine Creatinine Urine Total Protein Crossmatch 09/06/18 09/07/18 09/07/18 21:47 02:02 04:55 WBC RBC 3.08 L Hgb 8.5 L Hct 25.2 L MCV 82 L MCH MCHC RDW 18.8 H Lymph % (Auto) Mobile % (Auto) Eos % (Auto) Lymph # 0.8 L Mobile # Eos # Seg Neutrophils % 84.8 H Lymphocytes % (Manual) Seg Neutrophils # Lymphocytes # (Manual) PT INR APTT D-Dimer Heparin Anti-Xa Level POC ABG pH POC ABG pCO2 POC ABG pO2 Sodium Potassium Chloride Carbon Dioxide BUN Creatinine Glucose POC Glucose 275 H 291 H Lactic Acid Calcium Magnesium AST Alkaline Phosphatase Total Creatine Kinase CK-MB (CK-2) Troponin T C-Reactive Protein Total Protein Albumin Cholesterol LDL Cholesterol Direct HDL Cholesterol Free T4 Urine WBC (Auto) Urine Creatinine Urine Total Protein Crossmatch 09/07/18 09/07/18 09/07/18 04:55 06:02 10:27 WBC RBC Hgb Hct MCV MCH MCHC RDW Lymph % (Auto) Mobile % (Auto) Eos % (Auto) Lymph # Mobile # Eos # Seg Neutrophils % Lymphocytes % (Manual) Seg Neutrophils # Lymphocytes # (Manual) PT INR APTT D-Dimer Heparin Anti-Xa Level POC ABG pH POC ABG pCO2 POC ABG pO2 Sodium Potassium Chloride Carbon Dioxide BUN 30 H Creatinine 0.7 L Glucose 291 H POC Glucose 320 H 365 H Lactic Acid Calcium Magnesium AST Alkaline Phosphatase Total Creatine Kinase CK-MB (CK-2) Troponin T C-Reactive Protein Total Protein Albumin Cholesterol LDL Cholesterol Direct HDL Cholesterol Free T4 Urine WBC (Auto) Urine Creatinine Urine Total Protein Crossmatch Allied health notes reviewed: nursing
[2018-09-07] MEDS: SENOKOT S PO SCH (14:40)
[2018-09-07] MEDS: LOVENOX SUB-Q SCH (21:37)
[2018-09-07] MEDS ORDERED: LANTUS SUB-Q SCH (22:00)
[2018-09-08] MEDS: HumaLOG SUB-Q SCH ×6 (02:01→22:15)
[2018-09-08] MEDS: LASIX IV SCH (03:31)
[2018-09-08 05:09] LABS: Hematocrit 26.3 % (35.5-45.6); Hemoglobin 8.5 gm/dl (11.8-15.2); Mean Corpuscular HGB Conc 32 % (32-34); Mean Corpuscular Volume 83 fl (84-94); Platelet Count 180 K/mm3 (140-440); Red Blood Count 3.15 M/mm3 (3.65-5.03); Red Cell Distribution Width 19.6 % (13.2-15.2)
[2018-09-08 05:13] LABS: BUN/Creatinine Ratio 49; Blood Urea Nitrogen 39 mg/dL (9-20); Calcium 8.3 mg/dL (8.4-10.2); Hemolysis Index 16
[2018-09-08] MEDS: APRESOLINE PO SCH ×3 (05:22→22:00)
[2018-09-08] MEDS: SOLU-Medrol IV SCH ×3 (05:22→22:00)
[2018-09-08] MEDS: BENADRYL IV SCH ×3 (06:20→23:00)
--- NOTE | 2018-09-08 07:50 | Progress Note ---
Assessment and Plan Acute hypoxemic respiratory failure on chronic on MVS . s/p Tracheostomy Status post cardiac arrest. Seizure disorder with breakthrough seizures. History of diabetes. History of cerebrovascular accident. Oropharyngeal dysphagia. History of seizures. Hypernatremia -Tracheostomy care, airway clearance, secretion management -Continue all current care as documented below -Adequate gas exchange -Supportive transfusions, to keep HgB >7g/dL - Continue Keppra for seizures with prn ativan IV for breakthrough - Continue Stress ulcer & VTE prophylaxis - Continue bronchodilators with pulmonary hygiene per RT - Continue to wean supplemental oxygen to keep O2 sats 88-90% - Continue chronic home medications - Replete electrolytes as indicated - Monitor renal indices closely - Avoid nephrotoxic agents, adjust all medications for CrCL - Continue enteral nutrition as tolerated - Continue accuchecks with glycemic control - Target glucose of 140-180 mg/dL - Maintenance of sleep -wake cycle - Mobility as tolerated by hemodynamics - Influenza and pneumonia vaccination per protocol ....discussed with RT/RN ----discussed in ICU-IDT rounds OK to transfer to telemetry in the morning if continues to remain off MVS PROGNOSIS: GUARDED -POOR CONDITION: POOR CODE STATUS: FULL CODE Subjective Date of service: 09/08/18 Principal diagnosis: Acute hypoxemic resp failure; S/P cardiac arrest; Seizures; DM II; H/O CVA Interval history: Patient is seen today for: Acute hypoxemic respiratory failure on chronic; Status post cardiac arrest; Seizure disorder with breakthrough seizures; History of diabetes; History of cerebrovascular accident; Oropharyngeal dysphagia; History of seizures. Seen and examined at bedside; 24hour events reviewed; nursing and respiratory care staff consulted; no adverse overnight events reported to me; remains on MVS s/p tracheostomy; AMS is persistent; ATP for over 48 hours now; No emesis or overt aspiration and no seizure activity. Objective Vital Signs - 12hr 09/07/18 09/07/18 09/07/18 20:00 20:01 20:34 Temperature Pulse Rate 70 Pulse Rate [ 67 From Monitor] Respiratory 14 15 Rate Blood Pressure 128/66 O2 Sat by Pulse 100 98 100 Oximetry O2 Sat by Pulse Oximetry [ Assessment] 09/07/18 09/07/18 09/07/18 20:36 21:01 22:00 Temperature Pulse Rate 74 67 Pulse Rate [ From Monitor] Respiratory 18 Rate Blood Pressure 133/66 O2 Sat by Pulse 98 Oximetry O2 Sat by Pulse 100 Oximetry [ Assessment] 09/07/18 09/07/18 09/07/18 22:01 23:00 23:12 Temperature Pulse Rate 87 92 H 93 H Pulse Rate [ From Monitor] Respiratory 15 18 19 Rate Blood Pressure 138/62 117/58 117/58 O2 Sat by Pulse 93 95 100 Oximetry O2 Sat by Pulse Oximetry [ Assessment] 09/07/18 09/07/18 09/08/18 23:44 23:50 00:00 Temperature 97.4 F L Pulse Rate 93 H Pulse Rate [ 92 H From Monitor] Respiratory 17 Rate Blood Pressure 127/67 O2 Sat by Pulse 100 100 Oximetry O2 Sat by Pulse Oximetry [ Assessment] 09/08/18 09/08/18 09/08/18 00:01 01:00 02:01 Temperature Pulse Rate 94 H 90 95 H Pulse Rate [ From Monitor] Respiratory 16 10 L 21 Rate Blood Pressure 131/65 113/67 126/72 O2 Sat by Pulse 97 98 99 Oximetry O2 Sat by Pulse Oximetry [ Assessment] 09/08/18 09/08/18 09/08/18 03:00 03:43 04:00 Temperature 97.8 F Pulse Rate 88 Pulse Rate [ 90 From Monitor] Respiratory 12 12 Rate Blood Pressure 129/75 O2 Sat by Pulse 99 100 Oximetry O2 Sat by Pulse Oximetry [ Assessment] 09/08/18 09/08/18 09/08/18 04:01 05:00 05:19 Temperature Pulse Rate 89 95 H 89 Pulse Rate [ From Monitor] Respiratory 21 10 L Rate Blood Pressure 129/75 151/74 149/74 O2 Sat by Pulse 100 100 Oximetry O2 Sat by Pulse Oximetry [ Assessment] 09/08/18 09/08/18 09/08/18 05:21 06:01 07:00 Temperature Pulse Rate 88 86 Pulse Rate [ From Monitor] Respiratory 13 13 Rate Blood Pressure 125/70 113/74 O2 Sat by Pulse 99 100 Oximetry O2 Sat by Pulse 100 Oximetry [ Assessment] Constitutional: no acute distress, other (Elderly looking AAM, normocephalic resting in bed s/p tracheosotmy on ATP) Eyes: non-icteric, injected, other (+periorbital swelling) ENT: oropharynx moist Neck: supple, no lymphadenopathy, no JVD, other (s/p tracheostomy) Effort: normal Ascultation: Bilateral: diminished breath sounds, rhonchi Percussion: Bilateral: not dull Cardiovascular: regular rate and rhythm, other (S1,S2, no murmurs, gallops or rubs) Gastrointestinal: normoactive bowel sounds, soft, non-tender, non-distended Integumentary: normal Extremities: no cyanosis, pulses normal, no ischemia or petechiae, edema (trace ) Neurologic: unable to assess, other Psychiatric: other (unable to assess) CBC and BMP: 09/08/18 04:22 09/08/18 04:22 ABG, PT/INR, D-dimer: ABG POC ABG pH 7.484 (7.35-7.45) H 09/07/18 22:24 POC ABG pCO2 35.9 (35-45) 09/07/18 22:24 POC ABG pO2 61 (80-105) L 09/07/18 22:24 POC ABG HCO3 27.0 (22-26 mml/L) 09/07/18 22:24 POC ABG Total CO2 28 (23-27mmol/L) 09/07/18 22:24 POC ABG O2 Sat 93 09/07/18 22:24 PT/INR, D-dimer PT 16.5 Sec. (12.2-14.9) H 08/13/18 00:47 INR 1.25 (0.87-1.13) H 08/13/18 00:47 2742.50 ng/mlDDU (0-234) H 08/13/18 20:07 Abnormal lab findings: Abnormal Labs 08/12/18 08/12/18 08/12/18 21:44 21:44 21:44 WBC 15.5 H RBC 3.12 L Hgb 8.8 L Hct 28.9 L MCV MCH MCHC 31 L RDW 19.5 H Lymph % (Auto) Hill % (Auto) Eos % (Auto) Lymph # Hill # Eos # Seg Neutrophils % Lymphocytes % (Manual) 48.0 H Seg Neutrophils # Lymphocytes # (Manual) 7.4 H PT 17.8 H INR 1.37 H APTT D-Dimer Heparin Anti-Xa Level POC ABG pH POC ABG pCO2 POC ABG pO2 Sodium 159 H Potassium Chloride 118.5 H Carbon Dioxide BUN 34 H Creatinine Glucose 161 H POC Glucose Lactic Acid Calcium Magnesium AST Alkaline Phosphatase Total Creatine Kinase CK-MB (CK-2) Troponin T 0.105 H* C-Reactive Protein Total Protein Albumin Cholesterol LDL Cholesterol Direct HDL Cholesterol Free T4 Urine WBC (Auto) Urine Creatinine Urine Total Protein Crossmatch 08/13/18 08/13/18 08/13/18 00:32 00:47 00:47 WBC RBC Hgb 9.2 L Hct 29.6 L MCV MCH MCHC RDW Lymph % (Auto) Hill % (Auto) Eos % (Auto) Lymph # [place] # Eos # Seg Neutrophils % Lymphocytes % (Manual) Seg Neutrophils # Lymphocytes # (Manual) PT 16.5 H INR 1.25 H APTT 37.3 H D-Dimer Heparin Anti-Xa Level POC ABG pH POC ABG pCO2 POC ABG pO2 Sodium Potassium Chloride Carbon Dioxide BUN Creatinine Glucose POC Glucose Lactic Acid Calcium Magnesium AST Alkaline Phosphatase Total Creatine Kinase 211 H CK-MB (CK-2) 7.7 H Troponin T 0.169 H* D C-Reactive Protein Total Protein Albumin Cholesterol 46 L LDL Cholesterol Direct 17 L HDL Cholesterol 6 L Free T4 Urine WBC (Auto) Urine Creatinine Urine Total Protein Crossmatch 08/13/18 08/13/18 08/13/18 00:50 02:25 05:34 WBC RBC Hgb Hct MCV MCH MCHC RDW Lymph % (Auto) Hill % (Auto) Eos % (Auto) Lymph # [place] # Eos # Seg Neutrophils % Lymphocytes % (Manual) Seg Neutrophils # Lymphocytes # (Manual) PT INR APTT D-Dimer Heparin Anti-Xa Level POC ABG pH 7.503 H POC ABG pCO2 POC ABG pO2 253 H Sodium Potassium Chloride Carbon Dioxide BUN Creatinine Glucose POC Glucose Lactic Acid Calcium Magnesium AST Alkaline Phosphatase Total Creatine Kinase 311 H CK-MB (CK-2) 10.4 H Troponin T 0.283 H* D C-Reactive Protein Total Protein Albumin Cholesterol LDL Cholesterol Direct HDL Cholesterol Free T4 Urine WBC (Auto) > 182.0 H Urine Creatinine Urine Total Protein Crossmatch 08/13/18 08/13/18 08/13/18 06:35 10:10 10:10 WBC RBC Hgb Hct MCV MCH MCHC RDW Lymph % (Auto) Hill % (Auto) Eos % (Auto) Lymph # [place] # Eos # Seg Neutrophils % Lymphocytes % (Manual) Seg Neutrophils # Lymphocytes # (Manual) PT INR APTT D-Dimer Heparin Anti-Xa Level POC ABG pH 7.554 H POC ABG pCO2 33.5 L POC ABG pO2 220 H Sodium 158 H Potassium Chloride 117.1 H Carbon Dioxide BUN 53 H Creatinine 2.0 H Glucose 247 H POC Glucose Lactic Acid Calcium 8.2 L Magnesium AST Alkaline Phosphatase Total Creatine Kinase 309 H CK-MB (CK-2) 4.1 H Troponin T 0.470 H* D C-Reactive Protein Total Protein Albumin Cholesterol LDL Cholesterol Direct HDL Cholesterol Free T4 Urine WBC (Auto) Urine Creatinine Urine Total Protein Crossmatch 08/13/18 08/13/18 08/13/18 12:53 12:53 17:55 WBC RBC Hgb Hct MCV MCH MCHC RDW Lymph % (Auto) Hill % (Auto) Eos % (Auto) Lymph # [place] # Eos # Seg Neutrophils % Lymphocytes % (Manual) Seg Neutrophils # Lymphocytes # (Manual) PT INR APTT D-Dimer Heparin Anti-Xa Level POC ABG pH POC ABG pCO2 POC ABG pO2 Sodium Potassium Chloride Carbon Dioxide BUN Creatinine Glucose POC Glucose 308 H Lactic Acid 2.80 H* Calcium Magnesium 2.50 H AST Alkaline Phosphatase Total Creatine Kinase CK-MB (CK-2) Troponin T C-Reactive Protein 16.90 H Total Protein Albumin Cholesterol LDL Cholesterol Direct HDL Cholesterol Free T4 Urine WBC (Auto) Urine Creatinine Urine Total Protein Crossmatch 08/13/18 08/13/18 08/13/18 20:07 21:16 23:17 WBC RBC Hgb Hct MCV MCH MCHC RDW Lymph % (Auto) Hill % (Auto) Eos % (Auto) Lymph # [place] # Eos # Seg Neutrophils % Lymphocytes % (Manual) Seg Neutrophils # Lymphocytes # (Manual) PT INR APTT D-Dimer 2742.50 H Heparin Anti-Xa Level POC ABG pH 7.483 H POC ABG pCO2 30.8 L POC ABG pO2 150 H Sodium Potassium Chloride Carbon Dioxide BUN Creatinine Glucose POC Glucose 245 H Lactic Acid Calcium Magnesium AST Alkaline Phosphatase Total Creatine Kinase CK-MB (CK-2) Troponin T C-Reactive Protein Total Protein Albumin Cholesterol LDL Cholesterol Direct HDL Cholesterol Free T4 Urine WBC (Auto) Urine Creatinine Urine Total Protein Crossmatch 08/14/18 08/14/18 08/14/18 04:03 04:03 04:56 WBC 18.2 H RBC 2.62 L Hgb 7.3 L Hct 24.5 L MCV MCH MCHC RDW 18.9 H Lymph % (Auto) Hill % (Auto) Eos % (Auto) Lymph # [place] # 1.2 H Eos # Seg Neutrophils % 79.4 H Lymphocytes % (Manual) Seg Neutrophils # 14.5 H Lymphocytes # (Manual) PT INR APTT D-Dimer Heparin Anti-Xa Level POC ABG pH POC ABG pCO2 33.5 L POC ABG pO2 153 H Sodium 152 H Potassium 3.4 L Chloride 113.8 H Carbon Dioxide BUN 72 H Creatinine 2.7 H Glucose 239 H POC Glucose Lactic Acid Calcium 7.6 L Magnesium AST 50 H Alkaline Phosphatase 219 H Total Creatine Kinase CK-MB (CK-2) Troponin T 0.409 H* C-Reactive Protein Total Protein 6.2 L Albumin 1.9 L Cholesterol LDL Cholesterol Direct HDL Cholesterol Free T4 Urine WBC (Auto) Urine Creatinine Urine Total Protein Crossmatch 08/14/18 08/14/18 08/14/18 05:18 13:38 15:35 WBC RBC Hgb Hct MCV MCH MCHC RDW Lymph % (Auto) Hill % (Auto) Eos % (Auto) Lymph # [place] # Eos # Seg Neutrophils % Lymphocytes % (Manual) Seg Neutrophils # Lymphocytes # (Manual) PT INR APTT D-Dimer Heparin Anti-Xa Level POC ABG pH POC ABG pCO2 POC ABG pO2 Sodium 150 H Potassium 3.2 L Chloride 114.5 H Carbon Dioxide BUN 69 H Creatinine 2.3 H Glucose 247 H POC Glucose 242 H 296 H Lactic Acid Calcium 7.2 L Magnesium AST Alkaline Phosphatase Total Creatine Kinase CK-MB (CK-2) Troponin T C-Reactive Protein Total Protein Albumin Cholesterol LDL Cholesterol Direct HDL Cholesterol Free T4 Urine WBC (Auto) Urine Creatinine Urine Total Protein Crossmatch 08/14/18 08/14/18 08/14/18 17:01 17:20 23:47 WBC RBC Hgb Hct MCV MCH MCHC RDW Lymph % (Auto) Hill % (Auto) Eos % (Auto) Lymph # [place] # Eos # Seg Neutrophils % Lymphocytes % (Manual) Seg Neutrophils # Lymphocytes # (Manual) PT INR APTT D-Dimer Heparin Anti-Xa Level POC ABG pH POC ABG pCO2 POC ABG pO2 Sodium Potassium Chloride Carbon Dioxide BUN Creatinine Glucose POC Glucose 261 H 280 H Lactic Acid Calcium Magnesium AST Alkaline Phosphatase Total Creatine Kinase CK-MB (CK-2) Troponin T C-Reactive Protein Total Protein Albumin Cholesterol LDL Cholesterol Direct HDL Cholesterol Free T4 Urine WBC (Auto) Urine Creatinine 60.9 H Urine Total Protein 64 H Crossmatch 08/15/18 08/15/18 08/15/18 04:05 04:05 04:05 WBC RBC Hgb 6.3 L Hct 19.7 L* MCV MCH MCHC RDW Lymph % (Auto) Hill % (Auto) Eos % (Auto) Lymph # [place] # Eos # Seg Neutrophils % Lymphocytes % (Manual) Seg Neutrophils # Lymphocytes # (Manual) PT INR APTT D-Dimer Heparin Anti-Xa Level 0.17 L POC ABG pH POC ABG pCO2 POC ABG pO2 Sodium 146 H Potassium 3.0 L Chloride 110.6 H Carbon Dioxide BUN 64 H Creatinine 2.2 H Glucose 231 H POC Glucose Lactic Acid Calcium 7.1 L Magnesium AST Alkaline Phosphatase Total Creatine Kinase CK-MB (CK-2) Troponin T C-Reactive Protein Total Protein Albumin Cholesterol LDL Cholesterol Direct HDL Cholesterol Free T4 Urine WBC (Auto) Urine Creatinine Urine Total Protein Crossmatch 08/15/18 08/15/18 08/15/18 05:21 05:26 06:35 WBC RBC Hgb Hct MCV MCH MCHC RDW Lymph % (Auto) Hill % (Auto) Eos % (Auto) Lymph # [place] # Eos # Seg Neutrophils % Lymphocytes % (Manual) Seg Neutrophils # Lymphocytes # (Manual) PT INR APTT 79.0 H* D-Dimer Heparin Anti-Xa Level POC ABG pH 7.494 H POC ABG pCO2 POC ABG pO2 155 H Sodium Potassium Chloride Carbon Dioxide BUN Creatinine Glucose POC Glucose 271 H Lactic Acid Calcium Magnesium AST Alkaline Phosphatase Total Creatine Kinase CK-MB (CK-2) Troponin T C-Reactive Protein Total Protein Albumin Cholesterol LDL Cholesterol Direct HDL Cholesterol Free T4 Urine WBC (Auto) Urine Creatinine Urine Total Protein Crossmatch 08/15/18 08/15/18 08/15/18 12:10 15:31 17:27 WBC RBC Hgb Hct MCV MCH MCHC RDW Lymph % (Auto) Hill % (Auto) Eos % (Auto) Lymph # [place] # Eos # Seg Neutrophils % Lymphocytes % (Manual) Seg Neutrophils # Lymphocytes # (Manual) PT INR APTT D-Dimer Heparin Anti-Xa Level POC ABG pH POC ABG pCO2 POC ABG pO2 Sodium Potassium Chloride Carbon Dioxide BUN Creatinine Glucose POC Glucose 301 H 287 H Lactic Acid Calcium Magnesium AST Alkaline Phosphatase Total Creatine Kinase CK-MB (CK-2) Troponin T C-Reactive Protein Total Protein Albumin Cholesterol LDL Cholesterol Direct HDL Cholesterol Free T4 Urine WBC (Auto) Urine Creatinine Urine Total Protein Crossmatch See Detail 08/15/18 08/15/18 08/16/18 21:41 23:45 04:13 WBC RBC Hgb Hct MCV MCH MCHC RDW Lymph % (Auto) Hill % (Auto) Eos % (Auto) Lymph # [place] # Eos # Seg Neutrophils % Lymphocytes % (Manual) Seg Neutrophils # Lymphocytes # (Manual) PT INR APTT D-Dimer Heparin Anti-Xa Level 0.19 L POC ABG pH POC ABG pCO2 32.1 L POC ABG pO2 107 H Sodium Potassium Chloride Carbon Dioxide BUN Creatinine Glucose POC Glucose 163 H Lactic Acid Calcium Magnesium AST Alkaline Phosphatase Total Creatine Kinase CK-MB (CK-2) Troponin T C-Reactive Protein Total Protein Albumin Cholesterol LDL Cholesterol Direct HDL Cholesterol Free T4 Urine WBC (Auto) Urine Creatinine Urine Total Protein Crossmatch 08/16/18 08/16/18 08/16/18 04:50 05:28 11:30 WBC RBC 2.67 L Hgb 8.1 L Hct 23.4 L MCV MCH MCHC 35 H RDW 18.3 H Lymph % (Auto) Hill % (Auto) Eos % (Auto) Lymph # [place] # Eos # Seg Neutrophils % Lymphocytes % (Manual) Seg Neutrophils # Lymphocytes # (Manual) PT INR APTT D-Dimer Heparin Anti-Xa Level 0.19 L POC ABG pH POC ABG pCO2 POC ABG pO2 Sodium Potassium Chloride Carbon Dioxide BUN Creatinine Glucose POC Glucose 141 H Lactic Acid Calcium Magnesium AST Alkaline Phosphatase Total Creatine Kinase CK-MB (CK-2) Troponin T C-Reactive Protein Total Protein Albumin Cholesterol LDL Cholesterol Direct HDL Cholesterol Free T4 Urine WBC (Auto) Urine Creatinine Urine Total Protein Crossmatch 08/16/18 08/16/18 08/16/18 11:30 12:00 12:01 WBC RBC Hgb Hct MCV MCH MCHC RDW Lymph % (Auto) Hill % (Auto) Eos % (Auto) Lymph # [place] # Eos # Seg Neutrophils % Lymphocytes % (Manual) Seg Neutrophils # Lymphocytes # (Manual) PT INR APTT D-Dimer Heparin Anti-Xa Level 0.15 L POC ABG pH POC ABG pCO2 POC ABG pO2 Sodium Potassium Chloride 107.8 H Carbon Dioxide 21 L BUN 47 H Creatinine 1.6 H Glucose 221 H POC Glucose 267 H Lactic Acid Calcium 6.9 L Magnesium AST Alkaline Phosphatase Total Creatine Kinase CK-MB (CK-2) Troponin T C-Reactive Protein Total Protein Albumin Cholesterol LDL Cholesterol Direct HDL Cholesterol Free T4 Urine WBC (Auto) Urine Creatinine Urine Total Protein Crossmatch 08/16/18 08/16/18 08/16/18 17:23 20:01 23:13 WBC RBC Hgb Hct MCV MCH MCHC RDW Lymph % (Auto) Hill % (Auto) Eos % (Auto) Lymph # [place] # Eos # Seg Neutrophils % Lymphocytes % (Manual) Seg Neutrophils # Lymphocytes # (Manual) PT INR APTT D-Dimer Heparin Anti-Xa Level 0.26 L POC ABG pH POC ABG pCO2 POC ABG pO2 Sodium Potassium Chloride Carbon Dioxide BUN Creatinine Glucose POC Glucose 245 H 256 H Lactic Acid Calcium Magnesium AST Alkaline Phosphatase Total Creatine Kinase CK-MB (CK-2) Troponin T C-Reactive Protein Total Protein Albumin Cholesterol LDL Cholesterol Direct HDL Cholesterol Free T4 Urine WBC (Auto) Urine Creatinine Urine Total Protein Crossmatch 08/17/18 08/17/18 08/17/18 04:29 04:55 05:34 WBC RBC Hgb 8.2 L Hct 24.3 L MCV MCH MCHC RDW Lymph % (Auto) Hill % (Auto) Eos % (Auto) Lymph # [place] # Eos # Seg Neutrophils % Lymphocytes % (Manual) Seg Neutrophils # Lymphocytes # (Manual) PT INR APTT D-Dimer Heparin Anti-Xa Level POC ABG pH POC ABG pCO2 32.4 L POC ABG pO2 108 H Sodium Potassium Chloride Carbon Dioxide BUN Creatinine Glucose POC Glucose 268 H Lactic Acid Calcium Magnesium AST Alkaline Phosphatase Total Creatine Kinase CK-MB (CK-2) Troponin T C-Reactive Protein Total Protein Albumin Cholesterol LDL Cholesterol Direct HDL Cholesterol Free T4 Urine WBC (Auto) Urine Creatinine Urine Total Protein Crossmatch 08/17/18 08/17/18 08/17/18 11:54 13:44 17:24 WBC RBC Hgb Hct MCV MCH MCHC RDW Lymph % (Auto) Hill % (Auto) Eos % (Auto) Lymph # [place] # Eos # Seg Neutrophils % Lymphocytes % (Manual) Seg Neutrophils # Lymphocytes # (Manual) PT INR APTT D-Dimer Heparin Anti-Xa Level POC ABG pH POC ABG pCO2 32.7 L POC ABG pO2 142 H Sodium Potassium Chloride Carbon Dioxide BUN Creatinine Glucose POC Glucose 295 H 283 H Lactic Acid Calcium Magnesium AST Alkaline Phosphatase Total Creatine Kinase CK-MB (CK-2) Troponin T C-Reactive Protein Total Protein Albumin Cholesterol LDL Cholesterol Direct HDL Cholesterol Free T4 Urine WBC (Auto) Urine Creatinine Urine Total Protein Crossmatch 08/18/18 08/18/18 08/18/18 00:05 00:59 04:15 WBC RBC Hgb Hct MCV MCH MCHC RDW Lymph % (Auto) Hill % (Auto) Eos % (Auto) Lymph # [place] # Eos # Seg Neutrophils % Lymphocytes % (Manual) Seg Neutrophils # Lymphocytes # (Manual) PT INR APTT D-Dimer Heparin Anti-Xa Level POC ABG pH POC ABG pCO2 POC ABG pO2 115 H Sodium Potassium Chloride Carbon Dioxide BUN Creatinine Glucose POC Glucose 247 H 251 H Lactic Acid Calcium Magnesium AST Alkaline Phosphatase Total Creatine Kinase CK-MB (CK-2) Troponin T C-Reactive Protein Total Protein Albumin Cholesterol LDL Cholesterol Direct HDL Cholesterol Free T4 Urine WBC (Auto) Urine Creatinine Urine Total Protein Crossmatch 08/18/18 08/18/18 08/18/18 05:02 12:20 17:51 WBC RBC Hgb Hct MCV MCH MCHC RDW Lymph % (Auto) Hill % (Auto) Eos % (Auto) Lymph # [place] # Eos # Seg Neutrophils % Lymphocytes % (Manual) Seg Neutrophils # Lymphocytes # (Manual) PT INR APTT D-Dimer Heparin Anti-Xa Level POC ABG pH POC ABG pCO2 POC ABG pO2 Sodium Potassium Chloride Carbon Dioxide BUN Creatinine Glucose POC Glucose 282 H 209 H 261 H Lactic Acid Calcium Magnesium AST Alkaline Phosphatase Total Creatine Kinase CK-MB (CK-2) Troponin T C-Reactive Protein Total Protein Albumin Cholesterol LDL Cholesterol Direct HDL Cholesterol Free T4 Urine WBC (Auto) Urine Creatinine Urine Total Protein Crossmatch 08/18/18 08/19/18 08/19/18 23:30 04:54 05:16 WBC RBC 2.62 L Hgb 7.5 L Hct 23.1 L MCV MCH MCHC RDW 18.1 H Lymph % (Auto) Hill % (Auto) Eos % (Auto) Lymph # [place] # Eos # Seg Neutrophils % Lymphocytes % (Manual) Seg Neutrophils # Lymphocytes # (Manual) PT INR APTT D-Dimer Heparin Anti-Xa Level POC ABG pH POC ABG pCO2 POC ABG pO2 58 L Sodium Potassium Chloride Carbon Dioxide BUN Creatinine Glucose POC Glucose 231 H Lactic Acid Calcium Magnesium AST Alkaline Phosphatase Total Creatine Kinase CK-MB (CK-2) Troponin T C-Reactive Protein Total Protein Albumin Cholesterol LDL Cholesterol Direct HDL Cholesterol Free T4 Urine WBC (Auto) Urine Creatinine Urine Total Protein Crossmatch 08/19/18 08/19/18 08/19/18 05:16 05:40 11:56 WBC RBC Hgb Hct MCV MCH MCHC RDW Lymph % (Auto) Hill % (Auto) Eos % (Auto) Lymph # [place] # Eos # Seg Neutrophils % Lymphocytes % (Manual) Seg Neutrophils # Lymphocytes # (Manual) PT INR APTT D-Dimer Heparin Anti-Xa Level POC ABG pH POC ABG pCO2 POC ABG pO2 Sodium 152 H D Potassium Chloride 118.7 H Carbon Dioxide BUN 38 H Creatinine Glucose 220 H POC Glucose 227 H 213 H Lactic Acid Calcium 8.1 L D Magnesium AST Alkaline Phosphatase Total Creatine Kinase CK-MB (CK-2) Troponin T C-Reactive Protein Total Protein Albumin Cholesterol LDL Cholesterol Direct HDL Cholesterol Free T4 Urine WBC (Auto) Urine Creatinine Urine Total Protein Crossmatch 08/19/18 08/19/18 08/20/18 18:37 23:32 04:38 WBC RBC Hgb Hct MCV MCH MCHC RDW Lymph % (Auto) Hill % (Auto) Eos % (Auto) Lymph # [place] # Eos # Seg Neutrophils % Lymphocytes % (Manual) Seg Neutrophils # Lymphocytes # (Manual) PT INR APTT D-Dimer Heparin Anti-Xa Level POC ABG pH POC ABG pCO2 POC ABG pO2 140 H Sodium Potassium Chloride Carbon Dioxide BUN Creatinine Glucose POC Glucose 227 H 245 H Lactic Acid Calcium Magnesium AST Alkaline Phosphatase Total Creatine Kinase CK-MB (CK-2) Troponin T C-Reactive Protein Total Protein Albumin Cholesterol LDL Cholesterol Direct HDL Cholesterol Free T4 Urine WBC (Auto) Urine Creatinine Urine Total Protein Crossmatch 08/20/18 08/20/18 08/20/18 05:31 05:37 05:37 WBC RBC 2.60 L Hgb 7.5 L Hct 22.9 L MCV MCH MCHC RDW 18.4 H Lymph % (Auto) Hill % (Auto) Eos % (Auto) Lymph # [place] # Eos # Seg Neutrophils % Lymphocytes % (Manual) Seg Neutrophils # Lymphocytes # (Manual) PT INR APTT D-Dimer Heparin Anti-Xa Level POC ABG pH POC ABG pCO2 POC ABG pO2 Sodium 150 H Potassium Chloride 115.6 H Carbon Dioxide BUN 38 H Creatinine Glucose 276 H POC Glucose 266 H Lactic Acid Calcium 7.9 L Magnesium AST Alkaline Phosphatase Total Creatine Kinase CK-MB (CK-2) Troponin T C-Reactive Protein Total Protein Albumin Cholesterol LDL Cholesterol Direct HDL Cholesterol Free T4 Urine WBC (Auto) Urine Creatinine Urine Total Protein Crossmatch 08/20/18 08/20/18 08/20/18 14:01 18:20 23:11 WBC RBC Hgb Hct MCV MCH MCHC RDW Lymph % (Auto) Hill % (Auto) Eos % (Auto) Lymph # [place] # Eos # Seg Neutrophils % Lymphocytes % (Manual) Seg Neutrophils # Lymphocytes # (Manual) PT INR APTT D-Dimer Heparin Anti-Xa Level POC ABG pH POC ABG pCO2 POC ABG pO2 Sodium Potassium Chloride Carbon Dioxide BUN Creatinine Glucose POC Glucose 305 H 271 H 218 H Lactic Acid Calcium Magnesium AST Alkaline Phosphatase Total Creatine Kinase CK-MB (CK-2) Troponin T C-Reactive Protein Total Protein Albumin Cholesterol LDL Cholesterol Direct HDL Cholesterol Free T4 Urine WBC (Auto) Urine Creatinine Urine Total Protein Crossmatch 08/21/18 08/21/18 08/21/18 04:41 04:41 06:20 WBC RBC 2.65 L Hgb 7.6 L Hct 23.3 L MCV MCH MCHC RDW 19.1 H Lymph % (Auto) Hill % (Auto) Eos % (Auto) Lymph # [place] # Eos # Seg Neutrophils % Lymphocytes % (Manual) Seg Neutrophils # Lymphocytes # (Manual) PT INR APTT D-Dimer Heparin Anti-Xa Level POC ABG pH POC ABG pCO2 POC ABG pO2 Sodium 150 H Potassium Chloride 117.8 H Carbon Dioxide BUN 37 H Creatinine Glucose 233 H POC Glucose 262 H Lactic Acid Calcium 7.9 L Magnesium AST Alkaline Phosphatase Total Creatine Kinase CK-MB (CK-2) Troponin T C-Reactive Protein Total Protein Albumin Cholesterol LDL Cholesterol Direct HDL Cholesterol Free T4 Urine WBC (Auto) Urine Creatinine Urine Total Protein Crossmatch 08/21/18 08/21/18 08/21/18 10:18 12:04 12:36 WBC RBC Hgb Hct MCV MCH MCHC RDW Lymph % (Auto) Hill % (Auto) Eos % (Auto) Lymph # [place] # Eos # Seg Neutrophils % Lymphocytes % (Manual) Seg Neutrophils # Lymphocytes # (Manual) PT INR APTT D-Dimer Heparin Anti-Xa Level POC ABG pH POC ABG pCO2 POC ABG pO2 Sodium Potassium Chloride Carbon Dioxide BUN Creatinine Glucose POC Glucose 256 H 245 H 255 H Lactic Acid Calcium Magnesium AST Alkaline Phosphatase Total Creatine Kinase CK-MB (CK-2) Troponin T C-Reactive Protein Total Protein Albumin Cholesterol LDL Cholesterol Direct HDL Cholesterol Free T4 Urine WBC (Auto) Urine Creatinine Urine Total Protein Crossmatch 08/21/18 08/21/18 08/22/18 17:36 23:29 05:01 WBC RBC Hgb Hct MCV MCH MCHC RDW Lymph % (Auto) Hill % (Auto) Eos % (Auto) Lymph # [place] # Eos # Seg Neutrophils % Lymphocytes % (Manual) Seg Neutrophils # Lymphocytes # (Manual) PT INR APTT D-Dimer Heparin Anti-Xa Level POC ABG pH 7.466 H POC ABG pCO2 33.8 L POC ABG pO2 111 H Sodium Potassium Chloride Carbon Dioxide BUN Creatinine Glucose POC Glucose 263 H 268 H Lactic Acid Calcium Magnesium AST Alkaline Phosphatase Total Creatine Kinase CK-MB (CK-2) Troponin T C-Reactive Protein Total Protein Albumin Cholesterol LDL Cholesterol Direct HDL Cholesterol Free T4 Urine WBC (Auto) Urine Creatinine Urine Total Protein Crossmatch 08/22/18 08/22/18 08/22/18 05:05 12:05 12:15 WBC RBC Hgb Hct MCV MCH MCHC RDW Lymph % (Auto) Hill % (Auto) Eos % (Auto) Lymph # Hill # Eos # Seg Neutrophils % Lymphocytes % (Manual) Seg Neutrophils # Lymphocytes # (Manual) PT INR APTT D-Dimer Heparin Anti-Xa Level POC ABG pH POC ABG pCO2 POC ABG pO2 Sodium 147 H Potassium Chloride 113.2 H Carbon Dioxide BUN 36 H Creatinine Glucose 249 H POC Glucose 256 H 228 H Lactic Acid Calcium 8.2 L Magnesium AST Alkaline Phosphatase Total Creatine Kinase CK-MB (CK-2) Troponin T C-Reactive Protein Total Protein Albumin Cholesterol LDL Cholesterol Direct HDL Cholesterol Free T4 Urine WBC (Auto) Urine Creatinine Urine Total Protein Crossmatch 08/22/18 08/23/18 08/23/18 17:30 00:03 05:05 WBC RBC Hgb Hct MCV MCH MCHC RDW Lymph % (Auto) Hill % (Auto) Eos % (Auto) Lymph # [place] # Eos # Seg Neutrophils % Lymphocytes % (Manual) Seg Neutrophils # Lymphocytes # (Manual) PT INR APTT D-Dimer Heparin Anti-Xa Level POC ABG pH POC ABG pCO2 POC ABG pO2 Sodium Potassium Chloride Carbon Dioxide BUN Creatinine Glucose POC Glucose 291 H 259 H 247 H Lactic Acid Calcium Magnesium AST Alkaline Phosphatase Total Creatine Kinase CK-MB (CK-2) Troponin T C-Reactive Protein Total Protein Albumin Cholesterol LDL Cholesterol Direct HDL Cholesterol Free T4 Urine WBC (Auto) Urine Creatinine Urine Total Protein Crossmatch 08/23/18 08/23/18 08/23/18 05:14 12:29 17:21 WBC RBC Hgb Hct MCV MCH MCHC RDW Lymph % (Auto) Hill % (Auto) Eos % (Auto) Lymph # [place] # Eos # Seg Neutrophils % Lymphocytes % (Manual) Seg Neutrophils # Lymphocytes # (Manual) PT INR APTT D-Dimer Heparin Anti-Xa Level POC ABG pH POC ABG pCO2 POC ABG pO2 Sodium Potassium Chloride Carbon Dioxide BUN Creatinine Glucose POC Glucose 208 H 138 H 175 H Lactic Acid Calcium Magnesium AST Alkaline Phosphatase Total Creatine Kinase CK-MB (CK-2) Troponin T C-Reactive Protein Total Protein Albumin Cholesterol LDL Cholesterol Direct HDL Cholesterol Free T4 Urine WBC (Auto) Urine Creatinine Urine Total Protein Crossmatch 08/23/18 08/24/18 08/24/18 23:36 01:00 05:50 WBC RBC 2.92 L 2.90 L Hgb 8.3 L 8.2 L Hct 25.4 L 25.2 L MCV MCH MCHC RDW 18.9 H 18.6 H Lymph % (Auto) Hill % (Auto) 9.2 H Eos % (Auto) Lymph # [place] # Eos # Seg Neutrophils % Lymphocytes % (Manual) Seg Neutrophils # Lymphocytes # (Manual) PT INR APTT D-Dimer Heparin Anti-Xa Level POC ABG pH POC ABG pCO2 POC ABG pO2 Sodium Potassium Chloride Carbon Dioxide BUN Creatinine Glucose POC Glucose 163 H Lactic Acid Calcium Magnesium AST Alkaline Phosphatase Total Creatine Kinase CK-MB (CK-2) Troponin T C-Reactive Protein Total Protein Albumin Cholesterol LDL Cholesterol Direct HDL Cholesterol Free T4 Urine WBC (Auto) Urine Creatinine Urine Total Protein Crossmatch 08/24/18 08/24/18 08/24/18 05:50 12:26 18:37 WBC RBC Hgb Hct MCV MCH MCHC RDW Lymph % (Auto) Hill % (Auto) Eos % (Auto) Lymph # [place] # Eos # Seg Neutrophils % Lymphocytes % (Manual) Seg Neutrophils # Lymphocytes # (Manual) PT INR APTT D-Dimer Heparin Anti-Xa Level POC ABG pH POC ABG pCO2 POC ABG pO2 Sodium 147 H Potassium Chloride 113.6 H Carbon Dioxide BUN 33 H Creatinine Glucose 210 H POC Glucose 223 H 166 H Lactic Acid Calcium 8.3 L Magnesium AST Alkaline Phosphatase Total Creatine Kinase CK-MB (CK-2) Troponin T C-Reactive Protein Total Protein Albumin Cholesterol LDL Cholesterol Direct HDL Cholesterol Free T4 Urine WBC (Auto) Urine Creatinine Urine Total Protein Crossmatch 08/24/18 08/25/18 08/25/18 23:47 04:55 04:55 WBC RBC 2.94 L Hgb 8.4 L Hct 25.1 L MCV MCH MCHC RDW 18.2 H Lymph % (Auto) Hill % (Auto) Eos % (Auto) Lymph # [place] # Eos # Seg Neutrophils % Lymphocytes % (Manual) Seg Neutrophils # Lymphocytes # (Manual) PT INR APTT D-Dimer Heparin Anti-Xa Level POC ABG pH POC ABG pCO2 POC ABG pO2 Sodium Potassium Chloride 110.2 H Carbon Dioxide BUN 30 H Creatinine Glucose POC Glucose 126 H Lactic Acid Calcium 8.1 L Magnesium AST Alkaline Phosphatase Total Creatine Kinase CK-MB (CK-2) Troponin T C-Reactive Protein Total Protein Albumin Cholesterol LDL Cholesterol Direct HDL Cholesterol Free T4 Urine WBC (Auto) Urine Creatinine Urine Total Protein Crossmatch 08/25/18 08/26/18 08/26/18 12:40 04:39 04:39 WBC RBC 2.96 L Hgb 8.3 L Hct 25.7 L MCV MCH MCHC RDW 18.2 H Lymph % (Auto) 10.5 L [place] % (Auto) 9.3 H Eos % (Auto) Lymph # 0.8 L [place] # Eos # Seg Neutrophils % 77.0 H Lymphocytes % (Manual) Seg Neutrophils # Lymphocytes # (Manual) PT INR APTT D-Dimer Heparin Anti-Xa Level POC ABG pH POC ABG pCO2 POC ABG pO2 Sodium 147 H Potassium Chloride 113.5 H Carbon Dioxide BUN 27 H Creatinine 0.7 L Glucose 106 H POC Glucose Lactic Acid Calcium 8.0 L Magnesium AST Alkaline Phosphatase Total Creatine Kinase CK-MB (CK-2) Troponin T C-Reactive Protein Total Protein Albumin Cholesterol LDL Cholesterol Direct HDL Cholesterol Free T4 Urine WBC (Auto) > 182.0 H Urine Creatinine Urine Total Protein Crossmatch 08/26/18 08/26/18 08/26/18 05:27 09:00 09:54 WBC RBC Hgb Hct MCV MCH MCHC RDW Lymph % (Auto) Hill % (Auto) Eos % (Auto) Lymph # [place] # Eos # Seg Neutrophils % Lymphocytes % (Manual) Seg Neutrophils # Lymphocytes # (Manual) PT INR APTT D-Dimer Heparin Anti-Xa Level POC ABG pH POC ABG pCO2 POC ABG pO2 Sodium Potassium Chloride Carbon Dioxide BUN Creatinine Glucose POC Glucose 120 H 170 H Lactic Acid Calcium Magnesium AST Alkaline Phosphatase Total Creatine Kinase CK-MB (CK-2) Troponin T C-Reactive Protein Total Protein Albumin Cholesterol LDL Cholesterol Direct HDL Cholesterol Free T4 0.51 L Urine WBC (Auto) Urine Creatinine Urine Total Protein Crossmatch 08/26/18 08/26/18 08/27/18 14:52 17:50 06:30 WBC RBC Hgb Hct MCV MCH MCHC RDW Lymph % (Auto) Hill % (Auto) Eos % (Auto) Lymph # [place] # Eos # Seg Neutrophils % Lymphocytes % (Manual) Seg Neutrophils # Lymphocytes # (Manual) PT INR APTT D-Dimer Heparin Anti-Xa Level POC ABG pH POC ABG pCO2 POC ABG pO2 Sodium 150 H Potassium Chloride 114.8 H Carbon Dioxide BUN 24 H Creatinine 0.7 L Glucose 131 H POC Glucose 166 H 107 H Lactic Acid Calcium 7.8 L Magnesium AST Alkaline Phosphatase Total Creatine Kinase CK-MB (CK-2) Troponin T C-Reactive Protein Total Protein Albumin Cholesterol LDL Cholesterol Direct HDL Cholesterol Free T4 Urine WBC (Auto) Urine Creatinine Urine Total Protein Crossmatch 08/27/18 08/27/18 08/27/18 08:22 14:20 16:06 WBC RBC Hgb Hct MCV MCH MCHC RDW Lymph % (Auto) Hill % (Auto) Eos % (Auto) Lymph # [place] # Eos # Seg Neutrophils % Lymphocytes % (Manual) Seg Neutrophils # Lymphocytes # (Manual) PT INR APTT D-Dimer Heparin Anti-Xa Level POC ABG pH POC ABG pCO2 POC ABG pO2 Sodium Potassium Chloride Carbon Dioxide BUN Creatinine Glucose POC Glucose 112 H 151 H 158 H Lactic Acid Calcium Magnesium AST Alkaline Phosphatase Total Creatine Kinase CK-MB (CK-2) Troponin T C-Reactive Protein Total Protein Albumin Cholesterol LDL Cholesterol Direct HDL Cholesterol Free T4 Urine WBC (Auto) Urine Creatinine Urine Total Protein Crossmatch 08/27/18 08/27/18 08/28/18 20:09 21:25 02:03 WBC RBC Hgb Hct MCV MCH MCHC RDW Lymph % (Auto) Hill % (Auto) Eos % (Auto) Lymph # [place] # Eos # Seg Neutrophils % Lymphocytes % (Manual) Seg Neutrophils # Lymphocytes # (Manual) PT INR APTT D-Dimer Heparin Anti-Xa Level POC ABG pH POC ABG pCO2 POC ABG pO2 130 H Sodium Potassium Chloride Carbon Dioxide BUN Creatinine Glucose POC Glucose 226 H 250 H Lactic Acid Calcium Magnesium AST Alkaline Phosphatase Total Creatine Kinase CK-MB (CK-2) Troponin T C-Reactive Protein Total Protein Albumin Cholesterol LDL Cholesterol Direct HDL Cholesterol Free T4 Urine WBC (Auto) Urine Creatinine Urine Total Protein Crossmatch 08/28/18 08/28/18 08/28/18 05:56 07:15 13:17 WBC RBC Hgb Hct MCV MCH MCHC RDW Lymph % (Auto) Hill % (Auto) Eos % (Auto) Lymph # [place] # Eos # Seg Neutrophils % Lymphocytes % (Manual) Seg Neutrophils # Lymphocytes # (Manual) PT INR APTT D-Dimer Heparin Anti-Xa Level POC ABG pH POC ABG pCO2 POC ABG pO2 Sodium Potassium Chloride Carbon Dioxide BUN Creatinine Glucose 198 H POC Glucose 221 H 188 H Lactic Acid Calcium 7.7 L Magnesium AST Alkaline Phosphatase Total Creatine Kinase CK-MB (CK-2) Troponin T C-Reactive Protein Total Protein Albumin Cholesterol LDL Cholesterol Direct HDL Cholesterol Free T4 Urine WBC (Auto) Urine Creatinine Urine Total Protein Crossmatch 08/28/18 08/28/18 08/28/18 15:53 18:12 22:35 WBC RBC Hgb Hct MCV MCH MCHC RDW Lymph % (Auto) Hill % (Auto) Eos % (Auto) Lymph # [place] # Eos # Seg Neutrophils % Lymphocytes % (Manual) Seg Neutrophils # Lymphocytes # (Manual) PT INR APTT D-Dimer Heparin Anti-Xa Level POC ABG pH 7.457 H POC ABG pCO2 POC ABG pO2 Sodium Potassium Chloride Carbon Dioxide BUN Creatinine Glucose POC Glucose 197 H 225 H Lactic Acid Calcium Magnesium AST Alkaline Phosphatase Total Creatine Kinase CK-MB (CK-2) Troponin T C-Reactive Protein Total Protein Albumin Cholesterol LDL Cholesterol Direct HDL Cholesterol Free T4 Urine WBC (Auto) Urine Creatinine Urine Total Protein Crossmatch 08/29/18 08/29/18 08/29/18 03:04 10:47 14:25 WBC RBC Hgb Hct MCV MCH MCHC RDW Lymph % (Auto) Hill % (Auto) Eos % (Auto) Lymph # [place] # Eos # Seg Neutrophils % Lymphocytes % (Manual) Seg Neutrophils # Lymphocytes # (Manual) PT INR APTT D-Dimer Heparin Anti-Xa Level POC ABG pH POC ABG pCO2 POC ABG pO2 Sodium Potassium Chloride Carbon Dioxide BUN Creatinine Glucose POC Glucose 223 H 371 H 266 H Lactic Acid Calcium Magnesium AST Alkaline Phosphatase Total Creatine Kinase CK-MB (CK-2) Troponin T C-Reactive Protein Total Protein Albumin Cholesterol LDL Cholesterol Direct HDL Cholesterol Free T4 Urine WBC (Auto) Urine Creatinine Urine Total Protein Crossmatch 08/29/18 08/29/18 08/29/18 16:45 17:36 21:33 WBC RBC Hgb Hct MCV MCH MCHC RDW Lymph % (Auto) Hill % (Auto) Eos % (Auto) Lymph # [place] # Eos # Seg Neutrophils % Lymphocytes % (Manual) Seg Neutrophils # Lymphocytes # (Manual) PT INR APTT D-Dimer Heparin Anti-Xa Level POC ABG pH POC ABG pCO2 POC ABG pO2 118 H Sodium Potassium Chloride Carbon Dioxide BUN Creatinine Glucose POC Glucose 253 H 204 H Lactic Acid Calcium Magnesium AST Alkaline Phosphatase Total Creatine Kinase CK-MB (CK-2) Troponin T C-Reactive Protein Total Protein Albumin Cholesterol LDL Cholesterol Direct HDL Cholesterol Free T4 Urine WBC (Auto) Urine Creatinine Urine Total Protein Crossmatch 08/30/18 08/30/18 08/30/18 01:33 05:27 05:40 WBC RBC 3.12 L Hgb 8.5 L Hct 25.9 L MCV 83 L MCH 27 L MCHC RDW 18.3 H Lymph % (Auto) Hill % (Auto) 7.8 H Eos % (Auto) 8.8 H Lymph # [place] # Eos # 0.6 H Seg Neutrophils % Lymphocytes % (Manual) Seg Neutrophils # Lymphocytes # (Manual) PT INR APTT D-Dimer Heparin Anti-Xa Level POC ABG pH POC ABG pCO2 POC ABG pO2 Sodium Potassium Chloride Carbon Dioxide BUN Creatinine Glucose POC Glucose 157 H 178 H Lactic Acid Calcium Magnesium AST Alkaline Phosphatase Total Creatine Kinase CK-MB (CK-2) Troponin T C-Reactive Protein Total Protein Albumin Cholesterol LDL Cholesterol Direct HDL Cholesterol Free T4 Urine WBC (Auto) Urine Creatinine Urine Total Protein Crossmatch 06/05/1908/30/18 08/30/18 05:40 09:28 11:41 WBC RBC Hgb Hct MCV MCH MCHC RDW Lymph % (Auto) Hill % (Auto) Eos % (Auto) Lymph # [place] # Eos # Seg Neutrophils % Lymphocytes % (Manual) Seg Neutrophils # Lymphocytes # (Manual) PT INR APTT D-Dimer Heparin Anti-Xa Level POC ABG pH POC ABG pCO2 POC ABG pO2 Sodium Potassium Chloride Carbon Dioxide BUN Creatinine 0.7 L Glucose 189 H POC Glucose 216 H 257 H Lactic Acid Calcium 8.2 L Magnesium AST 50 H Alkaline Phosphatase 158 H Total Creatine Kinase CK-MB (CK-2) Troponin T C-Reactive Protein Total Protein Albumin 1.6 L Cholesterol LDL Cholesterol Direct HDL Cholesterol Free T4 Urine WBC (Auto) Urine Creatinine Urine Total Protein Crossmatch 08/30/18 08/30/18 08/30/18 14:34 17:07 21:56 WBC RBC Hgb Hct MCV MCH MCHC RDW Lymph % (Auto) Hill % (Auto) Eos % (Auto) Lymph # [place] # Eos # Seg Neutrophils % Lymphocytes % (Manual) Seg Neutrophils # Lymphocytes # (Manual) PT INR APTT D-Dimer Heparin Anti-Xa Level POC ABG pH POC ABG pCO2 POC ABG pO2 Sodium Potassium Chloride Carbon Dioxide BUN Creatinine Glucose POC Glucose 263 H 263 H 234 H Lactic Acid Calcium Magnesium AST Alkaline Phosphatase Total Creatine Kinase CK-MB (CK-2) Troponin T C-Reactive Protein Total Protein Albumin Cholesterol LDL Cholesterol Direct HDL Cholesterol Free T4 Urine WBC (Auto) Urine Creatinine Urine Total Protein Crossmatch 08/31/18 08/31/18 08/31/18 02:02 05:29 09:24 WBC RBC Hgb Hct MCV MCH MCHC RDW Lymph % (Auto) Hill % (Auto) Eos % (Auto) Lymph # [place] # Eos # Seg Neutrophils % Lymphocytes % (Manual) Seg Neutrophils # Lymphocytes # (Manual) PT INR APTT D-Dimer Heparin Anti-Xa Level POC ABG pH POC ABG pCO2 POC ABG pO2 Sodium Potassium Chloride Carbon Dioxide BUN Creatinine Glucose POC Glucose 151 H 156 H 107 H Lactic Acid Calcium Magnesium AST Alkaline Phosphatase Total Creatine Kinase CK-MB (CK-2) Troponin T C-Reactive Protein Total Protein Albumin Cholesterol LDL Cholesterol Direct HDL Cholesterol Free T4 Urine WBC (Auto) Urine Creatinine Urine Total Protein Crossmatch 08/31/18 08/31/18 08/31/18 13:51 17:28 21:40 WBC RBC Hgb Hct MCV MCH MCHC RDW Lymph % (Auto) Hill % (Auto) Eos % (Auto) Lymph # [place] # Eos # Seg Neutrophils % Lymphocytes % (Manual) Seg Neutrophils # Lymphocytes # (Manual) PT INR APTT D-Dimer Heparin Anti-Xa Level POC ABG pH POC ABG pCO2 POC ABG pO2 Sodium Potassium Chloride Carbon Dioxide BUN Creatinine Glucose POC Glucose 170 H 239 H 209 H Lactic Acid Calcium Magnesium AST Alkaline Phosphatase Total Creatine Kinase CK-MB (CK-2) Troponin T C-Reactive Protein Total Protein Albumin Cholesterol LDL Cholesterol Direct HDL Cholesterol Free T4 Urine WBC (Auto) Urine Creatinine Urine Total Protein Crossmatch 08/31/18 08/31/18 09/01/18 22:25 22:25 01:47 WBC RBC Hgb Hct MCV MCH MCHC RDW Lymph % (Auto) Hill % (Auto) Eos % (Auto) Lymph # [place] # Eos # Seg Neutrophils % Lymphocytes % (Manual) Seg Neutrophils # Lymphocytes # (Manual) PT INR APTT D-Dimer Heparin Anti-Xa Level POC ABG pH POC ABG pCO2 45.6 H POC ABG pO2 135 H Sodium Potassium Chloride Carbon Dioxide BUN Creatinine Glucose POC Glucose 208 H 223 H Lactic Acid Calcium Magnesium AST Alkaline Phosphatase Total Creatine Kinase CK-MB (CK-2) Troponin T C-Reactive Protein Total Protein Albumin Cholesterol LDL Cholesterol Direct HDL Cholesterol Free T4 Urine WBC (Auto) Urine Creatinine Urine Total Protein Crossmatch 09/01/18 09/01/18 09/01/18 05:18 05:19 05:19 WBC RBC 3.08 L Hgb 8.5 L Hct 25.6 L MCV 83 L MCH MCHC RDW 18.7 H Lymph % (Auto) Hill % (Auto) 7.9 H Eos % (Auto) 6.1 H Lymph # [place] # Eos # Seg Neutrophils % Lymphocytes % (Manual) Seg Neutrophils # Lymphocytes # (Manual) PT INR APTT D-Dimer Heparin Anti-Xa Level POC ABG pH POC ABG pCO2 POC ABG pO2 Sodium Potassium Chloride 107.9 H Carbon Dioxide BUN 21 H Creatinine 0.7 L Glucose 188 H POC Glucose 236 H Lactic Acid Calcium Magnesium AST Alkaline Phosphatase Total Creatine Kinase CK-MB (CK-2) Troponin T C-Reactive Protein Total Protein Albumin Cholesterol LDL Cholesterol Direct HDL Cholesterol Free T4 Urine WBC (Auto) Urine Creatinine Urine Total Protein Crossmatch 09/01/18 09/01/18 09/01/18 09:29 14:25 18:20 WBC RBC Hgb Hct MCV MCH MCHC RDW Lymph % (Auto) Hill % (Auto) Eos % (Auto) Lymph # [place] # Eos # Seg Neutrophils % Lymphocytes % (Manual) Seg Neutrophils # Lymphocytes # (Manual) PT INR APTT D-Dimer Heparin Anti-Xa Level POC ABG pH POC ABG pCO2 POC ABG pO2 Sodium Potassium Chloride Carbon Dioxide BUN Creatinine Glucose POC Glucose 231 H 294 H 215 H Lactic Acid Calcium Magnesium AST Alkaline Phosphatase Total Creatine Kinase CK-MB (CK-2) Troponin T C-Reactive Protein Total Protein Albumin Cholesterol LDL Cholesterol Direct HDL Cholesterol Free T4 Urine WBC (Auto) Urine Creatinine Urine Total Protein Crossmatch 09/01/18 09/02/18 09/02/18 21:21 03:28 05:25 WBC RBC Hgb Hct MCV MCH MCHC RDW Lymph % (Auto) Hill % (Auto) Eos % (Auto) Lymph # [place] # Eos # Seg Neutrophils % Lymphocytes % (Manual) Seg Neutrophils # Lymphocytes # (Manual) PT INR APTT D-Dimer Heparin Anti-Xa Level POC ABG pH POC ABG pCO2 POC ABG pO2 Sodium Potassium Chloride Carbon Dioxide BUN Creatinine Glucose POC Glucose 236 H 194 H 183 H Lactic Acid Calcium Magnesium AST Alkaline Phosphatase Total Creatine Kinase CK-MB (CK-2) Troponin T C-Reactive Protein Total Protein Albumin Cholesterol LDL Cholesterol Direct HDL Cholesterol Free T4 Urine WBC (Auto) Urine Creatinine Urine Total Protein Crossmatch 09/02/18 09/02/18 09/02/18 09:16 15:30 17:20 WBC RBC Hgb Hct MCV MCH MCHC RDW Lymph % (Auto) Hill % (Auto) Eos % (Auto) Lymph # [place] # Eos # Seg Neutrophils % Lymphocytes % (Manual) Seg Neutrophils # Lymphocytes # (Manual) PT INR APTT D-Dimer Heparin Anti-Xa Level POC ABG pH POC ABG pCO2 POC ABG pO2 Sodium Potassium Chloride Carbon Dioxide BUN Creatinine Glucose POC Glucose 251 H 303 H 316 H Lactic Acid Calcium Magnesium AST Alkaline Phosphatase Total Creatine Kinase CK-MB (CK-2) Troponin T C-Reactive Protein Total Protein Albumin Cholesterol LDL Cholesterol Direct HDL Cholesterol Free T4 Urine WBC (Auto) Urine Creatinine Urine Total Protein Crossmatch 09/02/18 09/03/18 09/03/18 21:25 03:32 05:20 WBC RBC Hgb Hct MCV MCH MCHC RDW Lymph % (Auto) Hill % (Auto) Eos % (Auto) Lymph # [place] # Eos # Seg Neutrophils % Lymphocytes % (Manual) Seg Neutrophils # Lymphocytes # (Manual) PT INR APTT D-Dimer Heparin Anti-Xa Level POC ABG pH POC ABG pCO2 POC ABG pO2 Sodium Potassium Chloride Carbon Dioxide BUN Creatinine Glucose POC Glucose 242 H 305 H 225 H Lactic Acid Calcium Magnesium AST Alkaline Phosphatase Total Creatine Kinase CK-MB (CK-2) Troponin T C-Reactive Protein Total Protein Albumin Cholesterol LDL Cholesterol Direct HDL Cholesterol Free T4 Urine WBC (Auto) Urine Creatinine Urine Total Protein Crossmatch 09/03/18 09/03/18 09/03/18 07:52 07:52 10:19 WBC RBC 3.29 L Hgb 9.0 L Hct 27.3 L MCV 83 L MCH 27 L MCHC RDW 18.4 H Lymph % (Auto) Hill % (Auto) Eos % (Auto) Lymph # [place] # Eos # Seg Neutrophils % Lymphocytes % (Manual) Seg Neutrophils # Lymphocytes # (Manual) PT INR APTT D-Dimer Heparin Anti-Xa Level POC ABG pH POC ABG pCO2 POC ABG pO2 Sodium Potassium Chloride Carbon Dioxide BUN 23 H Creatinine Glucose 205 H POC Glucose 228 H Lactic Acid Calcium 7.9 L Magnesium AST Alkaline Phosphatase Total Creatine Kinase CK-MB (CK-2) Troponin T C-Reactive Protein Total Protein Albumin Cholesterol LDL Cholesterol Direct HDL Cholesterol Free T4 Urine WBC (Auto) Urine Creatinine Urine Total Protein Crossmatch 09/03/18 09/03/18 09/03/18 13:42 17:22 21:33 WBC RBC Hgb Hct MCV MCH MCHC RDW Lymph % (Auto) Hill % (Auto) Eos % (Auto) Lymph # [place] # Eos # Seg Neutrophils % Lymphocytes % (Manual) Seg Neutrophils # Lymphocytes # (Manual) PT INR APTT D-Dimer Heparin Anti-Xa Level POC ABG pH POC ABG pCO2 POC ABG pO2 Sodium Potassium Chloride Carbon Dioxide BUN Creatinine Glucose POC Glucose 221 H 186 H 179 H Lactic Acid Calcium Magnesium AST Alkaline Phosphatase Total Creatine Kinase CK-MB (CK-2) Troponin T C-Reactive Protein Total Protein Albumin Cholesterol LDL Cholesterol Direct HDL Cholesterol Free T4 Urine WBC (Auto) Urine Creatinine Urine Total Protein Crossmatch 09/04/18 09/04/1819 02:07 05:54 11:03 WBC RBC Hgb Hct MCV MCH MCHC RDW Lymph % (Auto) Hill % (Auto) Eos % (Auto) Lymph # [place] # Eos # Seg Neutrophils % Lymphocytes % (Manual) Seg Neutrophils # Lymphocytes # (Manual) PT INR APTT D-Dimer Heparin Anti-Xa Level POC ABG pH POC ABG pCO2 POC ABG pO2 Sodium Potassium Chloride Carbon Dioxide BUN Creatinine Glucose POC Glucose 174 H 171 H 181 H Lactic Acid Calcium Magnesium AST Alkaline Phosphatase Total Creatine Kinase CK-MB (CK-2) Troponin T C-Reactive Protein Total Protein Albumin Cholesterol LDL Cholesterol Direct HDL Cholesterol Free T4 Urine WBC (Auto) Urine Creatinine Urine Total Protein Crossmatch 09/04/18 09/04/18 09/04/18 14:59 18:24 21:50 WBC RBC Hgb Hct MCV MCH MCHC RDW Lymph % (Auto) Hill % (Auto) Eos % (Auto) Lymph # [place] # Eos # Seg Neutrophils % Lymphocytes % (Manual) Seg Neutrophils # Lymphocytes # (Manual) PT INR APTT D-Dimer Heparin Anti-Xa Level POC ABG pH POC ABG pCO2 POC ABG pO2 Sodium Potassium Chloride Carbon Dioxide BUN Creatinine Glucose POC Glucose 204 H 236 H 197 H Lactic Acid Calcium Magnesium AST Alkaline Phosphatase Total Creatine Kinase CK-MB (CK-2) Troponin T C-Reactive Protein Total Protein Albumin Cholesterol LDL Cholesterol Direct HDL Cholesterol Free T4 Urine WBC (Auto) Urine Creatinine Urine Total Protein Crossmatch 09/05/18 09/05/18 09/05/18 01:32 04:52 04:52 WBC RBC 3.16 L Hgb 8.7 L Hct 26.0 L MCV 82 L MCH MCHC RDW 18.9 H Lymph % (Auto) [place] % (Auto) Eos % (Auto) Lymph # [place] # Eos # Seg Neutrophils % Lymphocytes % (Manual) Seg Neutrophils # Lymphocytes # (Manual) PT INR APTT D-Dimer Heparin Anti-Xa Level POC ABG pH POC ABG pCO2 POC ABG pO2 Sodium Potassium Chloride 107.2 H Carbon Dioxide BUN 23 H Creatinine 0.7 L Glucose 215 H POC Glucose 210 H Lactic Acid Calcium 8.3 L Magnesium AST Alkaline Phosphatase Total Creatine Kinase CK-MB (CK-2) Troponin T C-Reactive Protein Total Protein Albumin Cholesterol LDL Cholesterol Direct HDL Cholesterol Free T4 Urine WBC (Auto) Urine Creatinine Urine Total Protein Crossmatch 09/05/18 09/05/18 09/05/18 05:36 10:26 13:11 WBC RBC Hgb Hct MCV MCH MCHC RDW Lymph % (Auto) Hill % (Auto) Eos % (Auto) Lymph # [place] # Eos # Seg Neutrophils % Lymphocytes % (Manual) Seg Neutrophils # Lymphocytes # (Manual) PT INR APTT D-Dimer Heparin Anti-Xa Level POC ABG pH POC ABG pCO2 POC ABG pO2 Sodium Potassium Chloride Carbon Dioxide BUN Creatinine Glucose POC Glucose 216 H 206 H 161 H Lactic Acid Calcium Magnesium AST Alkaline Phosphatase Total Creatine Kinase CK-MB (CK-2) Troponin T C-Reactive Protein Total Protein Albumin Cholesterol LDL Cholesterol Direct HDL Cholesterol Free T4 Urine WBC (Auto) Urine Creatinine Urine Total Protein Crossmatch 09/05/18 09/05/18 09/05/18 18:27 18:32 22:05 WBC RBC Hgb Hct MCV MCH MCHC RDW Lymph % (Auto) Hill % (Auto) Eos % (Auto) Lymph # [place] # Eos # Seg Neutrophils % Lymphocytes % (Manual) Seg Neutrophils # Lymphocytes # (Manual) PT INR APTT D-Dimer Heparin Anti-Xa Level POC ABG pH 7.478 H POC ABG pCO2 POC ABG pO2 138 H Sodium Potassium Chloride Carbon Dioxide BUN Creatinine Glucose POC Glucose 154 H 149 H Lactic Acid Calcium Magnesium AST Alkaline Phosphatase Total Creatine Kinase CK-MB (CK-2) Troponin T C-Reactive Protein Total Protein Albumin Cholesterol LDL Cholesterol Direct HDL Cholesterol Free T4 Urine WBC (Auto) Urine Creatinine Urine Total Protein Crossmatch 09/06/18 09/06/18 09/06/18 04:40 08:30 10:06 WBC RBC Hgb Hct MCV MCH MCHC RDW Lymph % (Auto) [place] % (Auto) Eos % (Auto) Lymph # [place] # Eos # Seg Neutrophils % Lymphocytes % (Manual) Seg Neutrophils # Lymphocytes # (Manual) PT INR APTT D-Dimer Heparin Anti-Xa Level POC ABG pH POC ABG pCO2 POC ABG pO2 Sodium Potassium Chloride Carbon Dioxide BUN Creatinine Glucose POC Glucose 140 H 188 H 199 H Lactic Acid Calcium Magnesium AST Alkaline Phosphatase Total Creatine Kinase CK-MB (CK-2) Troponin T C-Reactive Protein Total Protein Albumin Cholesterol LDL Cholesterol Direct HDL Cholesterol Free T4 Urine WBC (Auto) Urine Creatinine Urine Total Protein Crossmatch 09/06/18 09/06/18 09/06/18 12:13 14:23 17:11 WBC RBC Hgb Hct MCV MCH MCHC RDW Lymph % (Auto) [place] % (Auto) Eos % (Auto) Lymph # [place] # Eos # Seg Neutrophils % Lymphocytes % (Manual) Seg Neutrophils # Lymphocytes # (Manual) PT INR APTT D-Dimer Heparin Anti-Xa Level POC ABG pH POC ABG pCO2 POC ABG pO2 Sodium Potassium Chloride Carbon Dioxide BUN Creatinine Glucose POC Glucose 177 H 180 H 216 H Lactic Acid Calcium Magnesium AST Alkaline Phosphatase Total Creatine Kinase CK-MB (CK-2) Troponin T C-Reactive Protein Total Protein Albumin Cholesterol LDL Cholesterol Direct HDL Cholesterol Free T4 Urine WBC (Auto) Urine Creatinine Urine Total Protein Crossmatch 09/06/18 09/07/18 09/07/18 21:47 02:02 04:55 WBC RBC 3.08 L Hgb 8.5 L Hct 25.2 L MCV 82 L MCH MCHC RDW 18.8 H Lymph % (Auto) Hill % (Auto) Eos % (Auto) Lymph # 0.8 L Hill # Eos # Seg Neutrophils % 84.8 H Lymphocytes % (Manual) Seg Neutrophils # Lymphocytes # (Manual) PT INR APTT D-Dimer Heparin Anti-Xa Level POC ABG pH POC ABG pCO2 POC ABG pO2 Sodium Potassium Chloride Carbon Dioxide BUN Creatinine Glucose POC Glucose 275 H 291 H Lactic Acid Calcium Magnesium AST Alkaline Phosphatase Total Creatine Kinase CK-MB (CK-2) Troponin T C-Reactive Protein Total Protein Albumin Cholesterol LDL Cholesterol Direct HDL Cholesterol Free T4 Urine WBC (Auto) Urine Creatinine Urine Total Protein Crossmatch 09/07/18 09/07/18 09/07/18 04:55 06:02 10:27 WBC RBC Hgb Hct MCV MCH MCHC RDW Lymph % (Auto) Hill % (Auto) Eos % (Auto) Lymph # Hill # Eos # Seg Neutrophils % Lymphocytes % (Manual) Seg Neutrophils # Lymphocytes # (Manual) PT INR APTT D-Dimer Heparin Anti-Xa Level POC ABG pH POC ABG pCO2 POC ABG pO2 Sodium Potassium Chloride Carbon Dioxide BUN 30 H Creatinine 0.7 L Glucose 291 H POC Glucose 320 H 365 H Lactic Acid Calcium Magnesium AST Alkaline Phosphatase Total Creatine Kinase CK-MB (CK-2) Troponin T C-Reactive Protein Total Protein Albumin Cholesterol LDL Cholesterol Direct HDL Cholesterol Free T4 Urine WBC (Auto) Urine Creatinine Urine Total Protein Crossmatch 09/07/18 09/07/18 09/07/18 13:52 17:12 21:29 WBC RBC Hgb Hct MCV MCH MCHC RDW Lymph % (Auto) Hill % (Auto) Eos % (Auto) Lymph # Hill # Eos # Seg Neutrophils % Lymphocytes % (Manual) Seg Neutrophils # Lymphocytes # (Manual) PT INR APTT D-Dimer Heparin Anti-Xa Level POC ABG pH POC ABG pCO2 POC ABG pO2 Sodium Potassium Chloride Carbon Dioxide BUN Creatinine Glucose POC Glucose 364 H 338 H 242 H Lactic Acid Calcium Magnesium AST Alkaline Phosphatase Total Creatine Kinase CK-MB (CK-2) Troponin T C-Reactive Protein Total Protein Albumin Cholesterol LDL Cholesterol Direct HDL Cholesterol Free T4 Urine WBC (Auto) Urine Creatinine Urine Total Protein Crossmatch 09/07/18 09/08/18 09/08/18 22:24 02:02 04:22 WBC 14.8 H RBC 3.15 L Hgb 8.5 L Hct 26.3 L MCV 83 L MCH 27 L MCHC RDW 19.6 H Lymph % (Auto) Hill % (Auto) Eos % (Auto) Lymph # Hill # Eos # Seg Neutrophils % Lymphocytes % (Manual) Seg Neutrophils # Lymphocytes # (Manual) PT INR APTT D-Dimer Heparin Anti-Xa Level POC ABG pH 7.484 H POC ABG pCO2 POC ABG pO2 61 L Sodium Potassium Chloride Carbon Dioxide BUN Creatinine Glucose POC Glucose 324 H Lactic Acid Calcium Magnesium AST Alkaline Phosphatase Total Creatine Kinase CK-MB (CK-2) Troponin T C-Reactive Protein Total Protein Albumin Cholesterol LDL Cholesterol Direct HDL Cholesterol Free T4 Urine WBC (Auto) Urine Creatinine Urine Total Protein Crossmatch 09/08/18 09/08/18 04:22 05:33 WBC RBC Hgb Hct MCV MCH MCHC RDW Lymph % (Auto) Hill % (Auto) Eos % (Auto) Lymph # [place] # Eos # Seg Neutrophils % Lymphocytes % (Manual) Seg Neutrophils # Lymphocytes # (Manual) PT INR APTT D-Dimer Heparin Anti-Xa Level POC ABG pH POC ABG pCO2 POC ABG pO2 Sodium Potassium Chloride Carbon Dioxide BUN 39 H Creatinine Glucose 320 H POC Glucose 324 H Lactic Acid Calcium 8.3 L Magnesium AST Alkaline Phosphatase Total Creatine Kinase CK-MB (CK-2) Troponin T C-Reactive Protein Total Protein Albumin Cholesterol LDL Cholesterol Direct HDL Cholesterol Free T4 Urine WBC (Auto) Urine Creatinine Urine Total Protein Crossmatch Allied health notes reviewed: nursing
[2018-09-08] MEDS ORDERED: LANTUS SUB-Q ONE (09:00)
[2018-09-08] MEDS ORDERED: FLEET PR ONE (09:00)
[2018-09-08] MEDS: NORVASC FEEDTUBE SCH (09:17)
[2018-09-08] MEDS: PEPCID PO SCH ×2 (09:17→22:00)
[2018-09-08] MEDS: KEPPRA PO SCH ×2 (09:17→22:00)
[2018-09-08] MEDS: ASPIRIN PO SCH (09:17)
[2018-09-08] MEDS: SENOKOT S PO SCH (09:17)
[2018-09-08] MEDS: SODIUM CHLORIDE FLUSH SYRINGE 10 ML IV SCH ×2 (09:18→22:00)
--- NOTE | 2018-09-08 13:06 | Progress Note ---
Assessment and Plan Assessment and plan: Cardiopulmonary arrest x 3: Most likely related to mucus plugging >NSTEMI, lead ing to severe irreversible brain damage: supportive care, CCM following. Acute on chronic respiratory failure Trach has been removed when patient was orally intubated, continue ventilator management per pulmonology. Tracheostomy was replaced by surgery on 08/25/18. Tracheostomy care, airway clearance, secretion management Right pneumothorax, resolved. Status post chest tube, mgt per pulmonology Hypoxic encephalopathy: neurology consult appreciated, poor prognosis, poor likelihood of recovery, preserved brain stem function otherwise unresponsive. EEG is suggestive hypoxic encephalopathy. Hypertension. Hydralazine 100 mg 3 times a day, cont norvasc Hypernatremia, Continue free water via G-tube, sp hypotonic IV solution, monitor bmp closely Acute kidney injury likely due to ATN Nephrology following, continue IV fluid, avoid renal toxic agents NSTEMI: treated with IV heparin, asa, statin, no bblocker due to bradycardia, hypotension, Cardiology is following Severe protein calorie malnutrition: Dietitian consulted, continue tube feedings UTI/sepsis: Continue antibiotics, follow-up urine cultures-->no growth x 48 hours Type 2 dm with persistent hyperglycemia: cont insulins and adjust according, on tube feedings Anemia: s/p transfusion Urinary retention: continue douglass, condom cath DVT prophylaxis; patient is fully anticoagulated on heparin drip Disposition. LTAC referral. The high probability of a clinically significant, sudden or life threatening deterioration of the [neurology and respiratory] system(s) required my full and direct attention, intervention and personal management. The aggregate critical care time was [31] minutes. This time is in addition to time spent performing reported procedures but includes the following: [x] Data Review and interpretation [x] Patient assessment and monitoring of vital signs [x] Documentation [x] Medication orders and management History Interval history: Patient is a 77 yo man from [facility] with a history of respiratory failure, CVA with tracheostomy and Gtube who presented to [facility] ED following cardiac arrest after being found unresponsive at the residential. Time down is unknown per records. The patient is on the vent and unresponsive, all history is obtained from the chart. Patient had multiple episodes of arrest/pulselessness. He has been on the vent since then without any improvement. Per ER notes the patient was bagged via tracheostomy which continued to have low tidal volumes and so the patient with orally intubated after which tidal volumes improved. I spoke with and daughter, Felicita and they believe that he aspirated with a mucus plug that caused the cardiopulmonary arrest not NSTEMI.. Initially, he went to [facility] may 05 to june 05, he had fluid on brain and multiple strokes per family and they drained the fluid off the brain. The trach was placed at [facility] and patient went to [facility], x 7 weeks (trach was changed where capped was placed), he was doing well, talking and sitting up. Then he went to [facility], August 03 and his oral care was horrible. The trach care was horrible and not enough suctioning done. Mouth with copious amount of crud. Then on August 12, Friday, he had voice changing and mucus plugging. Followed by respiratory arrest. The NM brain flow scan showed reduced blood flow. Patient had evaluation by neurology who reports patient with intact brainstem function. Patient still comatose, no improvement. LTAC was recommended but denied. case management discussing options with family. Hospitalist Physical - Constitutional Vitals: Temp Pulse Resp BP Pulse Ox 97.5 F L 79 9 L 133/68 100 09/08/18 12:00 09/08/18 12:01 09/08/18 12:01 09/08/18 12:09/08/18 12:49 General appearance: Present: other (twitching, nonresponsive, intubated) - EENT Eyes: Present: PERRL, EOM intact ENT: hearing intact, clear oral mucosa, dentition normal - Neck Neck: Present: supple, normal ROM - Respiratory Respiratory effort: normal Respiratory: bilateral: CTA - Cardiovascular Rhythm: regular Heart Sounds: Present: S1 & S2. Absent: gallop, rub - Extremities Extremities: no ischemia, No edema, Full ROM - Abdominal General gastrointestinal: soft, non-tender, non-distended, normal bowel sounds - Integumentary Integumentary: Present: clear, warm, dry - Neurologic Neurologic: other (comatose) Results - Labs CBC & Chem 7: 09/08/18 04:22 09/08/18 04:22 Labs: Laboratory Last Values WBC 14.8 K/mm3 (4.5-11.0) H 09/08/18 04:22 RBC 3.15 M/mm3 (3.65-5.03) L 09/08/18 04:22 Hgb 8.5 gm/dl (11.8-15.2) L 09/08/18 04:22 Hct 26.3 % (35.5-45.6) L 09/08/18 04:22 MCV 83 fl (84-94) L 09/08/18 04:22 MCH 27 pg (28-32) L 09/08/18 04:22 MCHC 32 % (32-34) 09/08/18 04:22 RDW 19.6 % (13.2-15.2) H 09/08/18 04:22 Plt Count 180 K/mm3 (140-440) 09/08/18 04:22 Lymph % (Auto) 13.7 % (13.4-35.0) 09/07/18 04:55 [place] % (Auto) 1.3 % (0.0-7.3) 09/07/18 04:55 Eos % (Auto) 0.0 % (0.0-4.3) 09/07/18 04:55 Baso % (Auto) 0.2 % (0.0-1.8) 09/07/18 04:55 Lymph # 0.8 K/mm3 (1.2-5.4) L 09/07/18 04:55 [place] # 0.1 K/mm3 (0.0-0.8) 09/07/18 04:55 Eos # 0.0 K/mm3 (0.0-0.4) 09/07/18 04:55 Baso # 0.0 K/mm3 (0.0-0.1) 09/07/18 04:55 Add Manual Diff Complete 08/12/18 21:44 Total Counted 100 08/12/18 21:44 Seg Neutrophils % 84.8 % (40.0-70.0) H 09/07/18 04:55 Seg Neuts % (Manual) 44.0 % (40.0-70.0) 08/12/18 21:44 0 % 08/12/18 21:44 48.0 % (13.4-35.0) H 08/12/18 21:44 Reactive Lymphs % (Man) 0 % 08/12/18 21:44 2.0 % (0.0-7.3) 08/12/18 21:44 1.0 % (0.0-4.3) 08/12/18 21:44 0 % (0.0-1.8) 08/12/18 21:44 1.0 % 08/12/18 21:44 4.0 % 08/12/18 21:44 0 % 08/12/18 21:44 0 % 08/12/18 21:44 Nucleated RBC % Not Reportable 08/12/18 21:44 Seg Neutrophils # 5.1 K/mm3 (1.8-7.7) 09/07/18 04:55 Seg Neutrophils # Man 6.8 K/mm3 (1.8-7.7) 08/12/18 21:44 Band Neutrophils # 0.0 K/mm3 08/12/18 21:44 7.4 K/mm3 (1.2-5.4) H 08/12/18 21:44 Abs React Lymphs (Man) 0.0 K/mm3 08/12/18 21:44 0.3 K/mm3 (0.0-0.8) 08/12/18 21:44 0.2 K/mm3 (0.0-0.4) 08/12/18 21:44 0.0 K/mm3 (0.0-0.1) 08/12/18 21:44 0.2 K/mm3 08/12/18 21:44 0.6 K/mm3 08/12/18 21:44 0.0 K/mm3 08/12/18 21:44 Blast Cells # 0.0 K/mm3 08/12/18 21:44 WBC Morphology Not Reportable 08/12/18 21:44 Hypersegmented Neuts Not Reportable 08/12/18 21:44 Hyposegmented Neuts Not Reportable 08/12/18 21:44 Hypogranular Neuts Not Reportable 08/12/18 21:44 Not Reportable 08/12/18 21:44 Not Reportable 08/12/18 21:44 Not Reportable 08/12/18 21:44 Not Reportable 08/12/18 21:44 Not Reportable 08/12/18 21:44 Not Reportable 08/12/18 21:44 Consistent w auto 08/12/18 21:44 Not Reportable 08/12/18 21:44 Plt Clumps, EDTA Not Reportable 08/12/18 21:44 Not Reportable 08/12/18 21:44 Not Reportable 08/12/18 21:44 Not Reportable 08/12/18 21:44 Plt Morphology Comment Not Reportable 08/12/18 21:44 RBC Morphology Not Reportable 08/12/18 21:44 Dimorphic RBCs Not Reportable 08/12/18 21:44 Not Reportable 08/12/18 21:44 Not Reportable 08/12/18 21:44 Not Reportable 08/12/18 21:44 Few 08/12/18 21:44 Not Reportable 08/12/18 21:44 Not Reportable 08/12/18 21:44 Not Reportable 08/12/18 21:44 Not Reportable 08/12/18 21:44 Not Reportable 08/12/18 21:44 Not Reportable 08/12/18 21:44 Not Reportable 08/12/18 21:44 Few 08/12/18 21:44 Not Reportable 08/12/18 21:44 Not Reportable 08/12/18 21:44 Not Reportable 08/12/18 21:44 Not Reportable 08/12/18 21:44 Not Reportable 08/12/18 21:44 Not Reportable 08/12/18 21:44 Few 08/12/18 21:44 Acanthocytes (Spur) Not Reportable 08/12/18 21:44 Rouleaux Not Reportable 08/12/18 21:44 Not Reportable 08/12/18 21:44 Not Reportable 08/12/18 21:44 Not Reportable 08/12/18 21:44 Not Reportable 08/12/18 21:44 Hem Pathologist Commnt No 08/12/18 21:44 PT 16.5 Sec. (12.2-14.9) H 08/13/18 00:47 INR 1.25 (0.87-1.13) H 08/13/18 00:47 APTT 79.0 Sec. (24.2-36.6) H* 08/15/18 06:35 2742.50 ng/mlDDU (0-234) H 08/13/18 20:07 Heparin Anti-Xa Level 0.26 U.I./ml (0.3-0.7) L 08/16/18 20:01 POC ABG pH 7.484 (7.35-7.45) H 09/07/18 22:24 POC ABG pCO2 35.9 (35-45) 09/07/18 22:24 POC ABG pO2 61 (80-105) L 09/07/18 22:24 POC ABG HCO3 27.0 (22-26 mml/L) 09/07/18 22:24 POC ABG Total CO2 28 (23-27mmol/L) 09/07/18 22:24 POC ABG O2 Sat 93 09/07/18 22:24 POC ABG Base Excess 4 ((-2) - (+3)mmol/L) 09/07/18 22:24 28 % 09/07/18 22:24 Sodium 141 mmol/L (137-145) 09/08/18 04:22 Potassium 3.7 mmol/L (3.6-5.0) 09/08/18 04:22 Chloride 103.9 mmol/L (98-107) 09/08/18 04:22 Carbon Dioxide 26 mmol/L (22-30) 09/08/18 04:22 15 mmol/L 09/08/18 04:22 BUN 39 mg/dL (9-20) H 09/08/18 04:22 0.8 mg/dL (0.8-1.5) 09/08/18 04:22 Estimated GFR > 60 ml/min 09/08/18 04:22 49 % 09/08/18 04:22 Glucose 320 mg/dL (75-100) H 09/08/18 04:22 POC Glucose 329 (70-105) H 09/08/18 09:40 Lactic Acid 2.80 mmol/L (0.7-2.0) H* 08/13/18 12:53 Calcium 8.3 mg/dL (8.4-10.2) L 09/08/18 04:22 Phosphorus 3.90 mg/dL (2.5-4.5) 08/15/18 04:05 Magnesium 1.70 mg/dL (1.7-2.3) 09/06/18 14:35 < 0.20 mg/dL (0.1-1.2) 08/30/18 05:40 AST 50 units/L (5-40) H 08/30/18 05:40 ALT 31 units/L (7-56) 08/30/18 05:40 158 units/L (35-129) H 08/30/18 05:40 309 units/L (55-170) H 08/13/18 10:10 CK-MB (CK-2) 4.1 ng/mL (0.0-4.0) H 08/13/18 10:10 CK-MB (CK-2) Rel Index 1.3 (0-4) 08/13/18 10:10 0.409 ng/mL (0.00-0.029) H* 08/14/18 04:03 16.90 mg/dL (0.00-1.30) H 08/13/18 12:53 6.4 g/dL (6.3-8.2) 08/30/18 05:40 1.6 g/dL (3.9-5) L 08/30/18 05:40 0.3 % 08/30/18 05:40 Triglycerides 62 mg/dL (2-149) 08/13/18 00:32 Cholesterol 46 mg/dL (50-199) L 08/13/18 00:32 17 mg/dL (50-130) L 08/13/18 00:32 6 mg/dL (40-59) L 08/13/18 00:32 7.66 % 08/13/18 00:32 TSH 0.973 mlU/mL (0.270-4.200) 08/26/18 09:00 Free T4 0.51 ng/dL (0.76-1.46) L 08/26/18 09:00 Yellow (Yellow) 08/25/18 12:40 Turbid (Clear) 08/25/18 12:40 7.0 (5.0-7.0) 08/25/18 12:40 Ur Specific [place] 1.009 (1.003-1.030) 08/25/18 12:40 100 mg/dl mg/dL (Negative) 08/25/18 12:40 Neg mg/dL (Negative) 08/25/18 12:40 Neg mg/dL (Negative) 08/25/18 12:40 Mod (Negative) 08/25/18 12:40 Neg (Negative) 08/25/18 12:40 Neg (Negative) 08/25/18 12:40 < 2.0 mg/dL (<2.0) 08/25/18 12:40 Ur Leukocyte Esterase Lg (Negative) 08/25/18 12:40 > 182.0 /HPF (0.0-6.0) H 08/25/18 12:40 10.0 /HPF (0.0-6.0) 08/25/18 12:40 U Epithel Cells (Auto) 5.0 /HPF (0-13.0) 08/25/18 12:40 2+ /HPF (Negative) 08/13/18 00:50 3+ /HPF 08/25/18 12:40 None seen (None Seen) 08/14/18 17:20 60.9 mg/dL (0.1-20.0) H 08/14/18 17:20 32 mmol/L 08/14/18 17:20 64 mg/dL (5-11.8) H 08/14/18 17:20 Presumptive negative 08/12/18 21:30 Presumptive negative 08/12/18 21:30 Ur Barbiturates Screen Presumptive negative 08/12/18 21:30 Ur Phencyclidine Scrn Presumptive negative 08/12/18 21:30 Ur Amphetamines Screen Presumptive negative 08/12/18 21:30 U Benzodiazepines Scrn Presumptive negative 08/12/18 21:30 Presumptive negative 08/12/18 21:30 U Marijuana (THC) Screen Presumptive negative 08/12/18 21:30 Disclamer 08/12/18 21:30 Blood Type O POSITIVE 08/15/18 15:31 Antibody Screen Negative 08/15/18 15:31 Crossmatch See Detail 08/15/18 15:31 Active Medications - Current Medications Current Medications: Generic Name Dose Route Start Last Admin Trade Name Freq PRN Reason Stop Dose Admin Acetaminophen 650 mg 08/13/18 11:40 08/13/18 16:09 Tylenol PO 650 mg Q6H PRN Administration Fever >101 Amlodipine Besylate 5 mg 09/02/18 10:00 09/08/18 09:17 Norvasc FEEDTUBE 5 mg QDAY LENCHO Administration Lipase/Protease/Amylase 1 each 08/25/18 18:36 Pancreaze 10,500 Unit FEEDTUBE PRN PRN For Clogged Feeding Tube Aspirin 325 mg 08/17/18 10:00 09/08/18 09:17 Aspirin PO 325 mg QDAY COUNTS INCLUDE 234 BEDS AT THE [facility] Administration Atorvastatin Calcium 40 mg 08/14/18 22:00 09/07/18 21:37 Lipitor PO 40 mg QHS COUNTS INCLUDE 234 BEDS AT THE [facility] Administration Dextrose 50 ml 08/13/18 01:34 D50w (25gm) Syringe IV PRN PRN Hypoglycemia Diphenhydramine HCl 25 mg 09/06/18 15:00 09/08/18 06:20 Benadryl IV 09/09/18 14:59 25 mg Q8H COUNTS INCLUDE 234 BEDS AT THE [facility] Administration Enoxaparin Sodium 40 mg 08/17/18 22:00 09/07/18 21:37 Lovenox SUB-Q 40 mg QDAY@2200 COUNTS INCLUDE 234 BEDS AT THE [facility] Administration Famotidine 20 mg 08/19/18 10:00 09/08/18 09:17 Pepcid PO 20 mg BID COUNTS INCLUDE 234 BEDS AT THE [facility] Administration Hydralazine HCl 100 mg 09/02/18 09:00 09/08/18 05:22 Apresoline PO 100 mg Q8HR COUNTS INCLUDE 234 BEDS AT THE [facility] Administration Hydralazine HCl 20 mg 09/02/18 08:16 Apresoline IV Q4HR PRN SBP>160 or DBP>110 Hydrophilic Ointment 1 applic 08/13/18 12:21 Vaseline Lip Therapy TP Q2HR PRN Dry Lips Insulin Glargine 45 units 09/08/18 22:00 Lantus SUB-Q QHS COUNTS INCLUDE 234 BEDS AT THE [facility] Insulin Human Lispro 0 unit 08/26/18 10:00 09/08/18 09:45 Humalog SUB-Q 6 unit Q4HR COUNTS INCLUDE 234 BEDS AT THE [facility] Administration Protocol Levetiracetam 500 mg 08/27/18 22:00 09/08/18 09:17 Keppra PO 500 mg BID COUNTS INCLUDE 234 BEDS AT THE [facility] Administration Methylprednisolone Sodium Succinate 40 mg 09/08/18 14:00 Solu-Medrol IV Q8HR COUNTS INCLUDE 234 BEDS AT THE [facility] Multi-Ingred Cream/Lotion/Oil/Oint 1 applic 08/13/18 12:21 08/17/18 00:41 Artificial Tears Ophth Oint OU 1 applic Q4HR PRN Administration Dry Eye(s) Ondansetron HCl 4 mg 08/13/18 01:34 Zofran IV Q8H PRN Nausea And Vomiting Senna/Docusate Sodium 2 tab 09/07/18 14:00 09/08/18 09:17 Senokot S PO 2 tab DAILY LENCHO Administration Simple Syrup 15 ml 08/25/18 18:36 Simple Syrup FEEDTUBE PRN PRN Hypoglycemia Simple Syrup 30 ml 08/25/18 18:36 Simple Syrup FEEDTUBE PRN PRN Hypoglycemia Sodium Bicarbonate 325 mg 08/25/18 18:36 Sodium Bicarbonate FEEDTUBE PRN PRN For Clogged Feeding Tube Sodium Chloride 10 ml 08/13/18 10:00 09/08/18 09:18 Sodium Chloride Flush Syringe 10 Ml IV 10 ml BID LENCHO Administration Sodium Chloride 10 ml 08/13/18 01:34 08/30/18 22:29 Sodium Chloride Flush Syringe 10 Ml IV 10 ml PRN PRN Administration LINE FLUSH Nutrition/Malnutrition Assess - Dietary Evaluation Nutrition/Malnutrition Findings: Nutrition Notes Start: 08/13/18 15:41 Freq: Status: Active Protocol: Document 09/03/18 16:28 RM (Rec: 09/03/18 16:32 RM [id number]) Nutrition Notes Initial or Follow up Reassessment Current Diagnosis Acute Kidney Injury,Diabetes Other Pertinent Diagnosis UTI, Hx CVA, PEG, Sacral PU, Multiple PU, Anoxic brain injury,R pneumothorax Current Diet Vital 1.2 at 60 ml/hr Labs/Tests Reviewed Pertinent Medications Reviewed Height 5 ft 8 in Weight 78.5 kg [place] Body Weight (kg) 70.00 BMI 26.3 Subjective/Other Information Observed Vital 1.2 hanging in room but not infusing. Nurse unsure why TF was off and turned it back on. Head Of Business Development saw that TF rate was at goal. Stated that pt has been tolerating TF at goal. Percent of energy/protein needs met: 97%/100% Burn Absent Trauma Absent #1 Nutrition Diagnosis Inadequate oral intake Diagnosis Progress(for reassessment Continues documentation) Is patient on ventilator? Yes Is Patient Ambulatory and/or Out of Bed No REE-([facility]-confined to bed) [phone] Calculation Used for Recommendations [facility] Additional Notes Protein Needs: 87-145g (1.2-2g /kg) Fluid Needs: 1 ml/kcal Nutrition Intervention Change Diet Order: TF Nutrition Support: Vital 1.2 at 60 ml/hr. Water flush of 250ml q4h for hypernatremia and 100 mls q 4 hrs once resolved. Kcal 1,728 Protein (gm) 108 Fluid (mL) 1,167 Fiber (gm) 7 Add Supplement/Snack (indicate name/kcal Magen BID /protein ) Provides kCal: 190 Provides Protein (gm) 5 Goal #1 Meet at least 80% of calorie and protein needs via TF Anticipated Discharge Needs: TF Follow-Up By: 09/10/18 Additional Comments Follow for TF tolerance
[2018-09-08] MEDS: LANTUS SUB-Q SCH (22:00)
[2018-09-08] MEDS: LOVENOX SUB-Q SCH (22:00)
[2018-09-09] MEDS: HumaLOG SUB-Q SCH ×6 (02:07→22:18)
[2018-09-09] MEDS: APRESOLINE PO SCH ×3 (05:29→22:20)
[2018-09-09] MEDS: SOLU-Medrol IV SCH (05:29)
[2018-09-09] MEDS: BENADRYL IV SCH (06:14)
[2018-09-09] MEDS: ASPIRIN PO SCH (09:05)
[2018-09-09] MEDS: SENOKOT S PO SCH (09:05)
[2018-09-09] MEDS: KEPPRA PO SCH ×2 (09:06→22:19)
[2018-09-09] MEDS: PEPCID PO SCH ×2 (09:06→22:19)
[2018-09-09] MEDS: NORVASC FEEDTUBE SCH (09:06)
[2018-09-09] MEDS: SODIUM CHLORIDE FLUSH SYRINGE 10 ML IV SCH ×2 (09:07→22:23)
--- NOTE | 2018-09-09 13:03 | Progress Note ---
Assessment and Plan Assessment and plan: Cardiopulmonary arrest x 3: Most likely related to mucus plugging >NSTEMI, lead ing to severe irreversible brain damage: supportive care, CCM following. Acute on chronic respiratory failure Trach has been removed when patient was orally intubated, continue ventilator management per pulmonology. Tracheostomy was replaced by surgery on 08/25/18. Tracheostomy care, airway clearance, secretion management Right pneumothorax, resolved. Status post chest tube, mgt per pulmonology Hypoxic encephalopathy: neurology consult appreciated, poor prognosis, poor likelihood of recovery, preserved brain stem function otherwise unresponsive. EEG is suggestive hypoxic encephalopathy. Hypertension. Hydralazine 100 mg 3 times a day, cont norvasc Hypernatremia, Continue free water via G-tube, sp hypotonic IV solution, monitor bmp closely Acute kidney injury likely due to ATN Nephrology following, continue IV fluid, avoid renal toxic agents NSTEMI: treated with IV heparin, asa, statin, no bblocker due to bradycardia, hypotension, Cardiology is following Severe protein calorie malnutrition: Dietitian consulted, continue tube feedings UTI/sepsis: Continue antibiotics, follow-up urine cultures-->no growth x 48 hours Type 2 dm with persistent hyperglycemia: cont insulins and adjust according, on tube feedings Anemia: s/p transfusion Urinary retention: continue douglass, condom cath DVT prophylaxis; patient is fully anticoagulated on heparin drip Disposition. LTAC referral. The high probability of a clinically significant, sudden or life threatening deterioration of the [neurology and respiratory] system(s) required my full and direct attention, intervention and personal management. The aggregate critical care time was [31] minutes. This time is in addition to time spent performing reported procedures but includes the following: [x] Data Review and interpretation [x] Patient assessment and monitoring of vital signs [x] Documentation [x] Medication orders and management History Interval history: Patient is a 77 yo man from [facility] with a history of respiratory failure, CVA with tracheostomy and Gtube who presented to [facility] ED following cardiac arrest after being found unresponsive at the [facility]. Time down is unknown per records. The patient is on the vent and unresponsive, all history is obtained from the chart. Patient had multiple episodes of arrest/pulselessness. He has been on the vent since then without any improvement. Per ER notes the patient was bagged via tracheostomy which continued to have low tidal volumes and so the patient with orally intubated after which tidal volumes improved. I spoke with and daughter, Felicita and they believe that he aspirated with a mucus plug that caused the cardiopulmonary arrest not NSTEMI.. Initially, he went to [facility] may 05 to june 05, he had fluid on brain and multiple strokes per family and they drained the fluid off the brain. The trach was placed at [facility] and patient went to [facility], x 7 weeks (trach was changed where capped was placed), he was doing well, talking and sitting up. Then he went to [facility], August 03 and his oral care was horrible. The trach care was horrible and not enough suctioning done. Mouth with copious amount of crud. Then on August 12, Friday, he had voice changing and mucus plugging. Followed by respiratory arrest. The NM brain flow scan showed reduced blood flow. Patient had evaluation by neurology who reports patient with intact brainstem function. Patient still comatose, no improvement. LTAC was recommended but denied. case management discussing options with family. Hospitalist Physical - Constitutional Vitals: Temp Pulse Resp BP Pulse Ox 97.4 F L 82 8 L 123/63 99 09/09/18 12:00 09/09/18 12:01 09/09/18 12:01 09/09/18 12:01 09/09/18 12:01 General appearance: Present: other (twitching, nonresponsive, intubated) - EENT Eyes: Present: PERRL, EOM intact ENT: hearing intact, clear oral mucosa, dentition normal - Neck Neck: Present: supple, normal ROM - Respiratory Respiratory effort: normal Respiratory: bilateral: CTA - Cardiovascular Rhythm: regular Heart Sounds: Present: S1 & S2. Absent: gallop, rub - Extremities Extremities: no ischemia, No edema, Full ROM - Abdominal General gastrointestinal: soft, non-tender, non-distended, normal bowel sounds - Integumentary Integumentary: Present: clear, warm, dry - Neurologic Neurologic: CNII-XII intact, moves all extremities Results - Labs CBC & Chem 7: 09/08/18 04:22 09/08/18 04:22 Labs: Laboratory Last Values WBC 14.8 K/mm3 (4.5-11.0) H 09/08/18 04:22 RBC 3.15 M/mm3 (3.65-5.03) L 09/08/18 04:22 Hgb 8.5 gm/dl (11.8-15.2) L 09/08/18 04:22 Hct 26.3 % (35.5-45.6) L 09/08/18 04:22 MCV 83 fl (84-94) L 09/08/18 04:22 MCH 27 pg (28-32) L 09/08/18 04:22 MCHC 32 % (32-34) 09/08/18 04:22 RDW 19.6 % (13.2-15.2) H 09/08/18 04:22 Plt Count 180 K/mm3 (140-440) 09/08/18 04:22 Lymph % (Auto) 13.7 % (13.4-35.0) 09/07/18 04:55 [place] % (Auto) 1.3 % (0.0-7.3) 09/07/18 04:55 Eos % (Auto) 0.0 % (0.0-4.3) 09/07/18 04:55 Baso % (Auto) 0.2 % (0.0-1.8) 09/07/18 04:55 Lymph # 0.8 K/mm3 (1.2-5.4) L 09/07/18 04:55 [place] # 0.1 K/mm3 (0.0-0.8) 09/07/18 04:55 Eos # 0.0 K/mm3 (0.0-0.4) 09/07/18 04:55 Baso # 0.0 K/mm3 (0.0-0.1) 09/07/18 04:55 Add Manual Diff Complete 08/12/18 21:44 Total Counted 100 08/12/18 21:44 Seg Neutrophils % 84.8 % (40.0-70.0) H 09/07/18 04:55 Seg Neuts % (Manual) 44.0 % (40.0-70.0) 08/12/18 21:44 0 % 08/12/18 21:44 48.0 % (13.4-35.0) H 08/12/18 21:44 Reactive Lymphs % (Man) 0 % 08/12/18 21:44 2.0 % (0.0-7.3) 08/12/18 21:44 1.0 % (0.0-4.3) 08/12/18 21:44 0 % (0.0-1.8) 08/12/18 21:44 1.0 % 08/12/18 21:44 4.0 % 08/12/18 21:44 0 % 08/12/18 21:44 0 % 08/12/18 21:44 Nucleated RBC % Not Reportable 08/12/18 21:44 Seg Neutrophils # 5.1 K/mm3 (1.8-7.7) 09/07/18 04:55 Seg Neutrophils # Man 6.8 K/mm3 (1.8-7.7) 08/12/18 21:44 Band Neutrophils # 0.0 K/mm3 08/12/18 21:44 7.4 K/mm3 (1.2-5.4) H 08/12/18 21:44 Abs React Lymphs (Man) 0.0 K/mm3 08/12/18 21:44 0.3 K/mm3 (0.0-0.8) 08/12/18 21:44 0.2 K/mm3 (0.0-0.4) 08/12/18 21:44 0.0 K/mm3 (0.0-0.1) 08/12/18 21:44 0.2 K/mm3 08/12/18 21:44 0.6 K/mm3 08/12/18 21:44 0.0 K/mm3 08/12/18 21:44 Blast Cells # 0.0 K/mm3 08/12/18 21:44 WBC Morphology Not Reportable 08/12/18 21:44 Hypersegmented Neuts Not Reportable 08/12/18 21:44 Hyposegmented Neuts Not Reportable 08/12/18 21:44 Hypogranular Neuts Not Reportable 08/12/18 21:44 Not Reportable 08/12/18 21:44 Not Reportable 08/12/18 21:44 Not Reportable 08/12/18 21:44 Not Reportable 08/12/18 21:44 Not Reportable 08/12/18 21:44 Not Reportable 08/12/18 21:44 Consistent w auto 08/12/18 21:44 Not Reportable 08/12/18 21:44 Plt Clumps, EDTA Not Reportable 08/12/18 21:44 Not Reportable 08/12/18 21:44 Not Reportable 08/12/18 21:44 Not Reportable 08/12/18 21:44 Plt Morphology Comment Not Reportable 08/12/18 21:44 RBC Morphology Not Reportable 08/12/18 21:44 Dimorphic RBCs Not Reportable 08/12/18 21:44 Not Reportable 08/12/18 21:44 Not Reportable 08/12/18 21:44 Not Reportable 08/12/18 21:44 Few 08/12/18 21:44 Not Reportable 08/12/18 21:44 Not Reportable 08/12/18 21:44 Not Reportable 08/12/18 21:44 Not Reportable 08/12/18 21:44 Not Reportable 08/12/18 21:44 Not Reportable 08/12/18 21:44 Not Reportable 08/12/18 21:44 Few 08/12/18 21:44 Not Reportable 08/12/18 21:44 Not Reportable 08/12/18 21:44 Not Reportable 08/12/18 21:44 Not Reportable 08/12/18 21:44 Not Reportable 08/12/18 21:44 Not Reportable 08/12/18 21:44 Few 08/12/18 21:44 Acanthocytes (Spur) Not Reportable 08/12/18 21:44 Rouleaux Not Reportable 08/12/18 21:44 Not Reportable 08/12/18 21:44 Not Reportable 08/12/18 21:44 Not Reportable 08/12/18 21:44 Not Reportable 08/12/18 21:44 Hem Pathologist Commnt No 08/12/18 21:44 PT 16.5 Sec. (12.2-14.9) H 08/13/18 00:47 INR 1.25 (0.87-1.13) H 08/13/18 00:47 APTT 79.0 Sec. (24.2-36.6) H* 08/15/18 06:35 2742.50 ng/mlDDU (0-234) H 08/13/18 20:07 Heparin Anti-Xa Level 0.26 U.I./ml (0.3-0.7) L 08/16/18 20:01 POC ABG pH 7.484 (7.35-7.45) H 09/07/18 22:24 POC ABG pCO2 35.9 (35-45) 09/07/18 22:24 POC ABG pO2 61 (80-105) L 09/07/18 22:24 POC ABG HCO3 27.0 (22-26 mml/L) 09/07/18 22:24 POC ABG Total CO2 28 (23-27mmol/L) 09/07/18 22:24 POC ABG O2 Sat 93 09/07/18 22:24 POC ABG Base Excess 4 ((-2) - (+3)mmol/L) 09/07/18 22:24 28 % 09/07/18 22:24 Sodium 141 mmol/L (137-145) 09/08/18 04:22 Potassium 3.7 mmol/L (3.6-5.0) 09/08/18 04:22 Chloride 103.9 mmol/L (98-107) 09/08/18 04:22 Carbon Dioxide 26 mmol/L (22-30) 09/08/18 04:22 15 mmol/L 09/08/18 04:22 BUN 39 mg/dL (9-20) H 09/08/18 04:22 0.8 mg/dL (0.8-1.5) 09/08/18 04:22 Estimated GFR > 60 ml/min 09/08/18 04:22 49 % 09/08/18 04:22 Glucose 320 mg/dL (75-100) H 09/08/18 04:22 POC Glucose 292 (70-105) H 09/09/18 09:20 Lactic Acid 2.80 mmol/L (0.7-2.0) H* 08/13/18 12:53 Calcium 8.3 mg/dL (8.4-10.2) L 09/08/18 04:22 Phosphorus 3.90 mg/dL (2.5-4.5) 08/15/18 04:05 Magnesium 1.70 mg/dL (1.7-2.3) 09/06/18 14:35 < 0.20 mg/dL (0.1-1.2) 08/30/18 05:40 AST 50 units/L (5-40) H 08/30/18 05:40 ALT 31 units/L (7-56) 08/30/18 05:40 158 units/L (35-129) H 08/30/18 05:40 309 units/L (55-170) H 08/13/18 10:10 CK-MB (CK-2) 4.1 ng/mL (0.0-4.0) H 08/13/18 10:10 CK-MB (CK-2) Rel Index 1.3 (0-4) 08/13/18 10:10 0.409 ng/mL (0.00-0.029) H* 08/14/18 04:03 16.90 mg/dL (0.00-1.30) H 08/13/18 12:53 6.4 g/dL (6.3-8.2) 08/30/18 05:40 1.6 g/dL (3.9-5) L 08/30/18 05:40 0.3 % 08/30/18 05:40 Triglycerides 62 mg/dL (2-149) 08/13/18 00:32 Cholesterol 46 mg/dL (50-199) L 08/13/18 00:32 17 mg/dL (50-130) L 08/13/18 00:32 6 mg/dL (40-59) L 08/13/18 00:32 7.66 % 08/13/18 00:32 TSH 0.973 mlU/mL (0.270-4.200) 08/26/18 09:00 Free T4 0.51 ng/dL (0.76-1.46) L 08/26/18 09:00 Yellow (Yellow) 08/25/18 12:40 Turbid (Clear) 08/25/18 12:40 7.0 (5.0-7.0) 08/25/18 12:40 Ur Specific [place] 1.009 (1.003-1.030) 08/25/18 12:40 100 mg/dl mg/dL (Negative) 08/25/18 12:40 Neg mg/dL (Negative) 08/25/18 12:40 Neg mg/dL (Negative) 08/25/18 12:40 Mod (Negative) 08/25/18 12:40 Neg (Negative) 08/25/18 12:40 Neg (Negative) 08/25/18 12:40 < 2.0 mg/dL (<2.0) 08/25/18 12:40 Ur Leukocyte Esterase Lg (Negative) 08/25/18 12:40 > 182.0 /HPF (0.0-6.0) H 08/25/18 12:40 10.0 /HPF (0.0-6.0) 08/25/18 12:40 U Epithel Cells (Auto) 5.0 /HPF (0-13.0) 08/25/18 12:40 2+ /HPF (Negative) 08/13/18 00:50 3+ /HPF 08/25/18 12:40 None seen (None Seen) 08/14/18 17:20 60.9 mg/dL (0.1-20.0) H 08/14/18 17:20 32 mmol/L 08/14/18 17:20 64 mg/dL (5-11.8) H 08/14/18 17:20 Presumptive negative 08/12/18 21:30 Presumptive negative 08/12/18 21:30 Ur Barbiturates Screen Presumptive negative 08/12/18 21:30 Ur Phencyclidine Scrn Presumptive negative 08/12/18 21:30 Ur Amphetamines Screen Presumptive negative 08/12/18 21:30 U Benzodiazepines Scrn Presumptive negative 08/12/18 21:30 Presumptive negative 08/12/18 21:30 U Marijuana (THC) Screen Presumptive negative 08/12/18 21:30 Disclamer 08/12/18 21:30 Blood Type O POSITIVE 08/15/18 15:31 Antibody Screen Negative 08/15/18 15:31 Crossmatch See Detail 08/15/18 15:31 Active Medications - Current Medications Current Medications: Generic Name Dose Route Start Last Admin Trade Name Freq PRN Reason Stop Dose Admin Acetaminophen 650 mg 08/13/18 11:40 08/13/18 16:09 Tylenol PO 650 mg Q6H PRN Administration Fever >101 Amlodipine Besylate 5 mg 09/02/18 10:00 09/09/18 09:06 Norvasc FEEDTUBE 5 mg QDAY LENCHO Administration Lipase/Protease/Amylase 1 each 08/25/18 18:36 Pancreaze 10,500 Unit FEEDTUBE PRN PRN For Clogged Feeding Tube Aspirin 325 mg 08/17/18 10:00 09/09/18 09:05 Aspirin PO 325 mg QDAY LENCHO Administration Atorvastatin Calcium 40 mg 08/14/18 22:00 09/08/18 22:00 Lipitor PO 40 mg QHS LENCHO Administration Dextrose 50 ml 08/13/18 01:34 D50w (25gm) Syringe IV PRN PRN Hypoglycemia Diphenhydramine HCl 25 mg 09/06/18 15:00 09/09/18 06:14 Benadryl IV 09/09/18 14:59 25 mg Q8H LENCHO Administration Enoxaparin Sodium 40 mg 08/17/18 22:00 09/08/18 22:00 Lovenox SUB-Q 40 mg QDAY@2200 LENCHO Administration Famotidine 20 mg 08/19/18 10:00 09/09/18 09:06 Pepcid PO 20 mg BID LENCHO Administration Hydralazine HCl 100 mg 09/02/18 09:00 09/09/18 05:29 Apresoline PO 100 mg Q8HR LENCHO Administration Hydralazine HCl 20 mg 09/02/18 08:16 Apresoline IV Q4HR PRN SBP>160 or DBP>110 Hydrophilic Ointment 1 applic 08/13/18 12:21 Vaseline Lip Therapy TP Q2HR PRN Dry Lips Insulin Glargine 45 units 09/08/18 22:00 09/08/18 22:00 Lantus SUB-Q 45 units QHS LENCHO Administration Insulin Human Lispro 0 unit 08/26/18 10:00 09/09/18 09:15 Humalog SUB-Q 4 unit Q4HR LENCHO Administration Protocol Levetiracetam 500 mg 08/27/18 22:00 09/09/18 09:06 Keppra PO 500 mg BID LENCHO Administration Multi-Ingred Cream/Lotion/Oil/Oint 1 applic 08/13/18 12:21 08/17/18 00:41 Artificial Tears Ophth Oint OU 1 applic Q4HR PRN Administration Dry Eye(s) Ondansetron HCl 4 mg 08/13/18 01:34 Zofran IV Q8H PRN Nausea And Vomiting Senna/Docusate Sodium 2 tab 09/07/18 14:00 09/09/18 09:05 Senokot S PO 2 tab DAILY LENCHO Administration Simple Syrup 15 ml 08/25/18 18:36 Simple Syrup FEEDTUBE PRN PRN Hypoglycemia Simple Syrup 30 ml 08/25/18 18:36 Simple Syrup FEEDTUBE PRN PRN Hypoglycemia Sodium Bicarbonate 325 mg 08/25/18 18:36 Sodium Bicarbonate FEEDTUBE PRN PRN For Clogged Feeding Tube Sodium Chloride 10 ml 08/13/18 10:00 09/09/18 09:07 Sodium Chloride Flush Syringe 10 Ml IV 10 ml BID LENCHO Administration Sodium Chloride 10 ml 08/13/18 01:34 08/30/18 22:29 Sodium Chloride Flush Syringe 10 Ml IV 10 ml PRN PRN Administration LINE FLUSH Nutrition/Malnutrition Assess - Dietary Evaluation Nutrition/Malnutrition Findings: Nutrition Notes Start: 08/13/18 15:41 Freq: Status: Active Protocol: Document 09/03/18 16:28 RM (Rec: 09/03/18 16:32 RM [id number]) Nutrition Notes Initial or Follow up Reassessment Current Diagnosis Acute Kidney Injury,Diabetes Other Pertinent Diagnosis UTI, Hx CVA, PEG, Sacral PU, Multiple PU, Anoxic brain injury,R pneumothorax Current Diet Vital 1.2 at 60 ml/hr Labs/Tests Reviewed Pertinent Medications Reviewed Height 5 ft 8 in Weight 78.5 kg [place] Body Weight (kg) 70.00 BMI 26.3 Subjective/Other Information Observed Vital 1.2 hanging in room but not infusing. Nurse unsure why TF was off and turned it back on. Last Puller saw that TF rate was at goal. Stated that pt has been tolerating TF at goal. Percent of energy/protein needs met: 97%/100% Burn Absent Trauma Absent #1 Nutrition Diagnosis Inadequate oral intake Diagnosis Progress(for reassessment Continues documentation) Is patient on ventilator? Yes Is Patient Ambulatory and/or Out of Bed No REE-([facility]-confined to bed) 4044.810 Calculation Used for Recommendations [facility] Additional Notes Protein Needs: 87-145g (1.2-2g /kg) Fluid Needs: 1 ml/kcal Nutrition Intervention Change Diet Order: TF Nutrition Support: Vital 1.2 at 60 ml/hr. Water flush of 250ml q4h for hypernatremia and 100 mls q 4 hrs once resolved. Kcal 1,728 Protein (gm) 108 Fluid (mL) 1,167 Fiber (gm) 7 Add Supplement/Snack (indicate name/kcal Magen BID /protein ) Provides kCal: 190 Provides Protein (gm) 5 Goal #1 Meet at least 80% of calorie and protein needs via TF Anticipated Discharge Needs: TF Follow-Up By: 09/10/18 Additional Comments Follow for TF tolerance
--- NOTE | 2018-09-09 17:49 | Progress Note ---
Assessment and Plan Patient not responding to verbal stimuli. Resting on T tube, FIO2 28%.O2 saturation 100%. No acute respiratory distress. - Patient Problems (1) Acute and chronic respiratory failure Current Visit: Yes Status: Acute Qualifiers: Respiratory failure complication: hypoxia Qualified Code(s): J96.21 - Acute and chronic respiratory failure with hypoxia Plan to address problem: S/p Tracheostomy. T tube FIO2 28%. Recommend albuterol/atrovent aerosol treatments q 6 hours. Continue S/C lovenox. Continue Famotidine. (2) Altered mental state Current Visit: Yes Status: Acute Plan to address problem: Management as per primary care and neurology. (3) Cardiac arrest Current Visit: Yes Status: Acute Plan to address problem: Patient sucessfully resucitated. Presently resting on T tube. (4) ACS (acute coronary syndrome) Current Visit: Yes Status: Acute Plan to address problem: Management as per cardiology. (5) MAYLIN (acute kidney injury) Current Visit: Yes Status: Acute Plan to address problem: Management as per nephrology. (6) Anemia Current Visit: Yes Status: Acute Plan to address problem: Management as per primary care and hematology. (7) Essential (primary) hypertension Current Visit: Yes Status: Acute Plan to address problem: Management as per primary care. (8) Pulmonary infiltrate Current Visit: Yes Status: Acute Plan to address problem: Reported perihilar and basilar infiltrate. Patient afebrile. No leukocytosis at the time of this chest xray. Recommend to repeat chest xray. Subjective Date of service: 09/09/18 Principal diagnosis: Acute hypoxemic resp failure; S/P cardiac arrest; Seizures; DM II; H/O CVA Interval history: Patient not responding to verbal stimuli. Resting on T tube, FIO2 28%.O2 saturation 100%. No acute respiratory distress. Objective Vital Signs - 12hr 09/09/18 09/09/18 09/09/18 06:01 07:01 07:36 Temperature Pulse Rate 71 73 Pulse Rate [ 77 From Monitor] Respiratory 12 11 L 10 L Rate Blood Pressure 135/55 131/61 O2 Sat by Pulse 99 98 100 Oximetry O2 Sat by Pulse Oximetry [ Assessment] 09/09/18 09/09/18 09/09/18 08:00 08:01 09:00 Temperature 98.1 F Pulse Rate 82 81 Pulse Rate [ From Monitor] Respiratory 13 11 L Rate Blood Pressure 131/59 122/58 O2 Sat by Pulse 95 100 Oximetry O2 Sat by Pulse 98 Oximetry [ Assessment] 09/09/18 09/09/18 09/09/18 09:06 10:00 11:01 Temperature Pulse Rate 86 80 77 Pulse Rate [ From Monitor] Respiratory 10 L 9 L Rate Blood Pressure 122/60 136/63 131/63 O2 Sat by Pulse 99 99 Oximetry O2 Sat by Pulse Oximetry [ Assessment] 09/09/18 09/09/18 09/09/18 12:00 12:01 13:00 Temperature 97.4 F L Pulse Rate 82 82 Pulse Rate [ 75 From Monitor] Respiratory 11 L 8 L 9 L Rate Blood Pressure 123/63 131/68 O2 Sat by Pulse 100 99 100 Oximetry O2 Sat by Pulse Oximetry [ Assessment] 09/09/18 09/09/18 09/09/18 14:00 15:01 15:38 Temperature Pulse Rate 84 83 Pulse Rate [ From Monitor] Respiratory 11 L 11 L Rate Blood Pressure 124/70 117/69 O2 Sat by Pulse 100 100 Oximetry O2 Sat by Pulse 97 Oximetry [ Assessment] 09/09/18 09/09/18 16:00 16:01 Temperature 97.4 F L Pulse Rate 87 Pulse Rate [ 95 H From Monitor] Respiratory 12 12 Rate Blood Pressure 132/63 O2 Sat by Pulse 100 99 Oximetry O2 Sat by Pulse Oximetry [ Assessment] Constitutional: no acute distress, other (Elderly looking AAM, normocephalic resting in bed on MVS) Eyes: non-icteric, injected, other (+periorbital swelling) ENT: oropharynx moist Neck: supple, no lymphadenopathy, no JVD, other (s/p tracheostomy) Effort: mildly labored Ascultation: Bilateral: diminished breath sounds, rhonchi Percussion: Bilateral: not dull Cardiovascular: regular rate and rhythm Gastrointestinal: normoactive bowel sounds, soft, non-tender, non-distended Integumentary: normal Extremities: no cyanosis, pulses normal, no ischemia or petechiae, edema (trace ) Neurologic: unable to assess, other (slight pupillary constriction to light) Psychiatric: other (unable to assess) CBC and BMP: 09/08/18 04:22 09/08/18 04:22 ABG, PT/INR, D-dimer: ABG POC ABG pH 7.464 (7.35-7.45) H 09/09/18 15:04 POC ABG pCO2 43.7 (35-45) 09/09/18 15:04 POC ABG pO2 109 (80-105) H 09/09/18 15:04 POC ABG HCO3 31.4 (22-26 mml/L) 09/09/18 15:04 POC ABG Total CO2 33 (23-27mmol/L) 09/09/18 15:04 POC ABG O2 Sat 98 09/09/18 15:04 PT/INR, D-dimer PT 16.5 Sec. (12.2-14.9) H 08/13/18 00:47 INR 1.25 (0.87-1.13) H 08/13/18 00:47 2742.50 ng/mlDDU (0-234) H 08/13/18 20:07 Abnormal lab findings: Abnormal Labs 08/12/18 08/12/18 08/12/18 21:44 21:44 21:44 WBC 15.5 H RBC 3.12 L Hgb 8.8 L Hct 28.9 L MCV MCH MCHC 31 L RDW 19.5 H Lymph % (Auto) [place] % (Auto) Eos % (Auto) Lymph # [place] # Eos # Seg Neutrophils % Lymphocytes % (Manual) 48.0 H Seg Neutrophils # Lymphocytes # (Manual) 7.4 H PT 17.8 H INR 1.37 H APTT D-Dimer Heparin Anti-Xa Level POC ABG pH POC ABG pCO2 POC ABG pO2 Sodium 159 H Potassium Chloride 118.5 H Carbon Dioxide BUN 34 H Creatinine Glucose 161 H POC Glucose Lactic Acid Calcium Magnesium AST Alkaline Phosphatase Total Creatine Kinase CK-MB (CK-2) Troponin T 0.105 H* C-Reactive Protein Total Protein Albumin Cholesterol LDL Cholesterol Direct HDL Cholesterol Free T4 Urine WBC (Auto) Urine Creatinine Urine Total Protein Crossmatch 08/13/18 08/13/18 08/13/18 00:32 00:47 00:47 WBC RBC Hgb 9.2 L Hct 29.6 L MCV MCH MCHC RDW Lymph % (Auto) [place] % (Auto) Eos % (Auto) Lymph # [place] # Eos # Seg Neutrophils % Lymphocytes % (Manual) Seg Neutrophils # Lymphocytes # (Manual) PT 16.5 H INR 1.25 H APTT 37.3 H D-Dimer Heparin Anti-Xa Level POC ABG pH POC ABG pCO2 POC ABG pO2 Sodium Potassium Chloride Carbon Dioxide BUN Creatinine Glucose POC Glucose Lactic Acid Calcium Magnesium AST Alkaline Phosphatase Total Creatine Kinase 211 H CK-MB (CK-2) 7.7 H Troponin T 0.169 H* D C-Reactive Protein Total Protein Albumin Cholesterol 46 L LDL Cholesterol Direct 17 L HDL Cholesterol 6 L Free T4 Urine WBC (Auto) Urine Creatinine Urine Total Protein Crossmatch 08/13/18 08/13/18 08/13/18 00:50 02:25 05:34 WBC RBC Hgb Hct MCV MCH MCHC RDW Lymph % (Auto) [place] % (Auto) Eos % (Auto) Lymph # [place] # Eos # Seg Neutrophils % Lymphocytes % (Manual) Seg Neutrophils # Lymphocytes # (Manual) PT INR APTT D-Dimer Heparin Anti-Xa Level POC ABG pH 7.503 H POC ABG pCO2 POC ABG pO2 253 H Sodium Potassium Chloride Carbon Dioxide BUN Creatinine Glucose POC Glucose Lactic Acid Calcium Magnesium AST Alkaline Phosphatase Total Creatine Kinase 311 H CK-MB (CK-2) 10.4 H Troponin T 0.283 H* D C-Reactive Protein Total Protein Albumin Cholesterol LDL Cholesterol Direct HDL Cholesterol Free T4 Urine WBC (Auto) > 182.0 H Urine Creatinine Urine Total Protein Crossmatch 08/13/18 08/13/18 08/13/18 06:35 10:10 10:10 WBC RBC Hgb Hct MCV MCH MCHC RDW Lymph % (Auto) [place] % (Auto) Eos % (Auto) Lymph # [place] # Eos # Seg Neutrophils % Lymphocytes % (Manual) Seg Neutrophils # Lymphocytes # (Manual) PT INR APTT D-Dimer Heparin Anti-Xa Level POC ABG pH 7.554 H POC ABG pCO2 33.5 L POC ABG pO2 220 H Sodium 158 H Potassium Chloride 117.1 H Carbon Dioxide BUN 53 H Creatinine 2.0 H Glucose 247 H POC Glucose Lactic Acid Calcium 8.2 L Magnesium AST Alkaline Phosphatase Total Creatine Kinase 309 H CK-MB (CK-2) 4.1 H Troponin T 0.470 H* D C-Reactive Protein Total Protein Albumin Cholesterol LDL Cholesterol Direct HDL Cholesterol Free T4 Urine WBC (Auto) Urine Creatinine Urine Total Protein Crossmatch 08/13/18 08/13/18 08/13/18 12:53 12:53 17:55 WBC RBC Hgb Hct MCV MCH MCHC RDW Lymph % (Auto) [place] % (Auto) Eos % (Auto) Lymph # [place] # Eos # Seg Neutrophils % Lymphocytes % (Manual) Seg Neutrophils # Lymphocytes # (Manual) PT INR APTT D-Dimer Heparin Anti-Xa Level POC ABG pH POC ABG pCO2 POC ABG pO2 Sodium Potassium Chloride Carbon Dioxide BUN Creatinine Glucose POC Glucose 308 H Lactic Acid 2.80 H* Calcium Magnesium 2.50 H AST Alkaline Phosphatase Total Creatine Kinase CK-MB (CK-2) Troponin T C-Reactive Protein 16.90 H Total Protein Albumin Cholesterol LDL Cholesterol Direct HDL Cholesterol Free T4 Urine WBC (Auto) Urine Creatinine Urine Total Protein Crossmatch 08/13/18 08/13/18 08/13/18 20:07 21:16 23:17 WBC RBC Hgb Hct MCV MCH MCHC RDW Lymph % (Auto) [place] % (Auto) Eos % (Auto) Lymph # [place] # Eos # Seg Neutrophils % Lymphocytes % (Manual) Seg Neutrophils # Lymphocytes # (Manual) PT INR APTT D-Dimer 2742.50 H Heparin Anti-Xa Level POC ABG pH 7.483 H POC ABG pCO2 30.8 L POC ABG pO2 150 H Sodium Potassium Chloride Carbon Dioxide BUN Creatinine Glucose POC Glucose 245 H Lactic Acid Calcium Magnesium AST Alkaline Phosphatase Total Creatine Kinase CK-MB (CK-2) Troponin T C-Reactive Protein Total Protein Albumin Cholesterol LDL Cholesterol Direct HDL Cholesterol Free T4 Urine WBC (Auto) Urine Creatinine Urine Total Protein Crossmatch 08/14/18 08/14/18 08/14/18 04:03 04:03 04:56 WBC 18.2 H RBC 2.62 L Hgb 7.3 L Hct 24.5 L MCV MCH MCHC RDW 18.9 H Lymph % (Auto) [place] % (Auto) Eos % (Auto) Lymph # [place] # 1.2 H Eos # Seg Neutrophils % 79.4 H Lymphocytes % (Manual) Seg Neutrophils # 14.5 H Lymphocytes # (Manual) PT INR APTT D-Dimer Heparin Anti-Xa Level POC ABG pH POC ABG pCO2 33.5 L POC ABG pO2 153 H Sodium 152 H Potassium 3.4 L Chloride 113.8 H Carbon Dioxide BUN 72 H Creatinine 2.7 H Glucose 239 H POC Glucose Lactic Acid Calcium 7.6 L Magnesium AST 50 H Alkaline Phosphatase 219 H Total Creatine Kinase CK-MB (CK-2) Troponin T 0.409 H* C-Reactive Protein Total Protein 6.2 L Albumin 1.9 L Cholesterol LDL Cholesterol Direct HDL Cholesterol Free T4 Urine WBC (Auto) Urine Creatinine Urine Total Protein Crossmatch 08/14/18 08/14/18 08/14/18 05:18 13:38 15:35 WBC RBC Hgb Hct MCV MCH MCHC RDW Lymph % (Auto) [place] % (Auto) Eos % (Auto) Lymph # [place] # Eos # Seg Neutrophils % Lymphocytes % (Manual) Seg Neutrophils # Lymphocytes # (Manual) PT INR APTT D-Dimer Heparin Anti-Xa Level POC ABG pH POC ABG pCO2 POC ABG pO2 Sodium 150 H Potassium 3.2 L Chloride 114.5 H Carbon Dioxide BUN 69 H Creatinine 2.3 H Glucose 247 H POC Glucose 242 H 296 H Lactic Acid Calcium 7.2 L Magnesium AST Alkaline Phosphatase Total Creatine Kinase CK-MB (CK-2) Troponin T C-Reactive Protein Total Protein Albumin Cholesterol LDL Cholesterol Direct HDL Cholesterol Free T4 Urine WBC (Auto) Urine Creatinine Urine Total Protein Crossmatch 08/14/18 08/14/18 08/14/18 17:01 17:20 23:47 WBC RBC Hgb Hct MCV MCH MCHC RDW Lymph % (Auto) [place] % (Auto) Eos % (Auto) Lymph # [place] # Eos # Seg Neutrophils % Lymphocytes % (Manual) Seg Neutrophils # Lymphocytes # (Manual) PT INR APTT D-Dimer Heparin Anti-Xa Level POC ABG pH POC ABG pCO2 POC ABG pO2 Sodium Potassium Chloride Carbon Dioxide BUN Creatinine Glucose POC Glucose 261 H 280 H Lactic Acid Calcium Magnesium AST Alkaline Phosphatase Total Creatine Kinase CK-MB (CK-2) Troponin T C-Reactive Protein Total Protein Albumin Cholesterol LDL Cholesterol Direct HDL Cholesterol Free T4 Urine WBC (Auto) Urine Creatinine 60.9 H Urine Total Protein 64 H Crossmatch 08/15/18 08/15/18 08/15/18 04:05 04:05 04:05 WBC RBC Hgb 6.3 L Hct 19.7 L* MCV MCH MCHC RDW Lymph % (Auto) [place] % (Auto) Eos % (Auto) Lymph # [place] # Eos # Seg Neutrophils % Lymphocytes % (Manual) Seg Neutrophils # Lymphocytes # (Manual) PT INR APTT D-Dimer Heparin Anti-Xa Level 0.17 L POC ABG pH POC ABG pCO2 POC ABG pO2 Sodium 146 H Potassium 3.0 L Chloride 110.6 H Carbon Dioxide BUN 64 H Creatinine 2.2 H Glucose 231 H POC Glucose Lactic Acid Calcium 7.1 L Magnesium AST Alkaline Phosphatase Total Creatine Kinase CK-MB (CK-2) Troponin T C-Reactive Protein Total Protein Albumin Cholesterol LDL Cholesterol Direct HDL Cholesterol Free T4 Urine WBC (Auto) Urine Creatinine Urine Total Protein Crossmatch 08/15/18 08/15/18 08/15/18 05:21 05:26 06:35 WBC RBC Hgb Hct MCV MCH MCHC RDW Lymph % (Auto) [place] % (Auto) Eos % (Auto) Lymph # [place] # Eos # Seg Neutrophils % Lymphocytes % (Manual) Seg Neutrophils # Lymphocytes # (Manual) PT INR APTT 79.0 H* D-Dimer Heparin Anti-Xa Level POC ABG pH 7.494 H POC ABG pCO2 POC ABG pO2 155 H Sodium Potassium Chloride Carbon Dioxide BUN Creatinine Glucose POC Glucose 271 H Lactic Acid Calcium Magnesium AST Alkaline Phosphatase Total Creatine Kinase CK-MB (CK-2) Troponin T C-Reactive Protein Total Protein Albumin Cholesterol LDL Cholesterol Direct HDL Cholesterol Free T4 Urine WBC (Auto) Urine Creatinine Urine Total Protein Crossmatch 08/15/18 08/15/18 08/15/18 12:10 15:31 17:27 WBC RBC Hgb Hct MCV MCH MCHC RDW Lymph % (Auto) [place] % (Auto) Eos % (Auto) Lymph # [place] # Eos # Seg Neutrophils % Lymphocytes % (Manual) Seg Neutrophils # Lymphocytes # (Manual) PT INR APTT D-Dimer Heparin Anti-Xa Level POC ABG pH POC ABG pCO2 POC ABG pO2 Sodium Potassium Chloride Carbon Dioxide BUN Creatinine Glucose POC Glucose 301 H 287 H Lactic Acid Calcium Magnesium AST Alkaline Phosphatase Total Creatine Kinase CK-MB (CK-2) Troponin T C-Reactive Protein Total Protein Albumin Cholesterol LDL Cholesterol Direct HDL Cholesterol Free T4 Urine WBC (Auto) Urine Creatinine Urine Total Protein Crossmatch See Detail 08/15/18 08/15/18 08/16/18 21:41 23:45 04:13 WBC RBC Hgb Hct MCV MCH MCHC RDW Lymph % (Auto) [place] % (Auto) Eos % (Auto) Lymph # [place] # Eos # Seg Neutrophils % Lymphocytes % (Manual) Seg Neutrophils # Lymphocytes # (Manual) PT INR APTT D-Dimer Heparin Anti-Xa Level 0.19 L POC ABG pH POC ABG pCO2 32.1 L POC ABG pO2 107 H Sodium Potassium Chloride Carbon Dioxide BUN Creatinine Glucose POC Glucose 163 H Lactic Acid Calcium Magnesium AST Alkaline Phosphatase Total Creatine Kinase CK-MB (CK-2) Troponin T C-Reactive Protein Total Protein Albumin Cholesterol LDL Cholesterol Direct HDL Cholesterol Free T4 Urine WBC (Auto) Urine Creatinine Urine Total Protein Crossmatch 08/16/18 08/16/18 08/16/18 04:50 05:28 11:30 WBC RBC 2.67 L Hgb 8.1 L Hct 23.4 L MCV MCH MCHC 35 H RDW 18.3 H Lymph % (Auto) [place] % (Auto) Eos % (Auto) Lymph # [place] # Eos # Seg Neutrophils % Lymphocytes % (Manual) Seg Neutrophils # Lymphocytes # (Manual) PT INR APTT D-Dimer Heparin Anti-Xa Level 0.19 L POC ABG pH POC ABG pCO2 POC ABG pO2 Sodium Potassium Chloride Carbon Dioxide BUN Creatinine Glucose POC Glucose 141 H Lactic Acid Calcium Magnesium AST Alkaline Phosphatase Total Creatine Kinase CK-MB (CK-2) Troponin T C-Reactive Protein Total Protein Albumin Cholesterol LDL Cholesterol Direct HDL Cholesterol Free T4 Urine WBC (Auto) Urine Creatinine Urine Total Protein Crossmatch 08/16/18 08/16/18 08/16/18 11:30 12:00 12:01 WBC RBC Hgb Hct MCV MCH MCHC RDW Lymph % (Auto) [place] % (Auto) Eos % (Auto) Lymph # [place] # Eos # Seg Neutrophils % Lymphocytes % (Manual) Seg Neutrophils # Lymphocytes # (Manual) PT INR APTT D-Dimer Heparin Anti-Xa Level 0.15 L POC ABG pH POC ABG pCO2 POC ABG pO2 Sodium Potassium Chloride 107.8 H Carbon Dioxide 21 L BUN 47 H Creatinine 1.6 H Glucose 221 H POC Glucose 267 H Lactic Acid Calcium 6.9 L Magnesium AST Alkaline Phosphatase Total Creatine Kinase CK-MB (CK-2) Troponin T C-Reactive Protein Total Protein Albumin Cholesterol LDL Cholesterol Direct HDL Cholesterol Free T4 Urine WBC (Auto) Urine Creatinine Urine Total Protein Crossmatch 08/16/18 08/16/18 08/16/18 17:23 20:01 23:13 WBC RBC Hgb Hct MCV MCH MCHC RDW Lymph % (Auto) [place] % (Auto) Eos % (Auto) Lymph # [place] # Eos # Seg Neutrophils % Lymphocytes % (Manual) Seg Neutrophils # Lymphocytes # (Manual) PT INR APTT D-Dimer Heparin Anti-Xa Level 0.26 L POC ABG pH POC ABG pCO2 POC ABG pO2 Sodium Potassium Chloride Carbon Dioxide BUN Creatinine Glucose POC Glucose 245 H 256 H Lactic Acid Calcium Magnesium AST Alkaline Phosphatase Total Creatine Kinase CK-MB (CK-2) Troponin T C-Reactive Protein Total Protein Albumin Cholesterol LDL Cholesterol Direct HDL Cholesterol Free T4 Urine WBC (Auto) Urine Creatinine Urine Total Protein Crossmatch 08/17/18 08/17/18 08/17/18 04:29 04:55 05:34 WBC RBC Hgb 8.2 L Hct 24.3 L MCV MCH MCHC RDW Lymph % (Auto) [place] % (Auto) Eos % (Auto) Lymph # [place] # Eos # Seg Neutrophils % Lymphocytes % (Manual) Seg Neutrophils # Lymphocytes # (Manual) PT INR APTT D-Dimer Heparin Anti-Xa Level POC ABG pH POC ABG pCO2 32.4 L POC ABG pO2 108 H Sodium Potassium Chloride Carbon Dioxide BUN Creatinine Glucose POC Glucose 268 H Lactic Acid Calcium Magnesium AST Alkaline Phosphatase Total Creatine Kinase CK-MB (CK-2) Troponin T C-Reactive Protein Total Protein Albumin Cholesterol LDL Cholesterol Direct HDL Cholesterol Free T4 Urine WBC (Auto) Urine Creatinine Urine Total Protein Crossmatch 08/17/18 08/17/18 08/17/18 11:54 13:44 17:24 WBC RBC Hgb Hct MCV MCH MCHC RDW Lymph % (Auto) [place] % (Auto) Eos % (Auto) Lymph # [place] # Eos # Seg Neutrophils % Lymphocytes % (Manual) Seg Neutrophils # Lymphocytes # (Manual) PT INR APTT D-Dimer Heparin Anti-Xa Level POC ABG pH POC ABG pCO2 32.7 L POC ABG pO2 142 H Sodium Potassium Chloride Carbon Dioxide BUN Creatinine Glucose POC Glucose 295 H 283 H Lactic Acid Calcium Magnesium AST Alkaline Phosphatase Total Creatine Kinase CK-MB (CK-2) Troponin T C-Reactive Protein Total Protein Albumin Cholesterol LDL Cholesterol Direct HDL Cholesterol Free T4 Urine WBC (Auto) Urine Creatinine Urine Total Protein Crossmatch 08/18/18 08/18/18 08/18/18 00:05 00:59 04:15 WBC RBC Hgb Hct MCV MCH MCHC RDW Lymph % (Auto) [place] % (Auto) Eos % (Auto) Lymph # [place] # Eos # Seg Neutrophils % Lymphocytes % (Manual) Seg Neutrophils # Lymphocytes # (Manual) PT INR APTT D-Dimer Heparin Anti-Xa Level POC ABG pH POC ABG pCO2 POC ABG pO2 115 H Sodium Potassium Chloride Carbon Dioxide BUN Creatinine Glucose POC Glucose 247 H 251 H Lactic Acid Calcium Magnesium AST Alkaline Phosphatase Total Creatine Kinase CK-MB (CK-2) Troponin T C-Reactive Protein Total Protein Albumin Cholesterol LDL Cholesterol Direct HDL Cholesterol Free T4 Urine WBC (Auto) Urine Creatinine Urine Total Protein Crossmatch 08/18/18 08/18/18 08/18/18 05:02 12:20 17:51 WBC RBC Hgb Hct MCV MCH MCHC RDW Lymph % (Auto) [place] % (Auto) Eos % (Auto) Lymph # [place] # Eos # Seg Neutrophils % Lymphocytes % (Manual) Seg Neutrophils # Lymphocytes # (Manual) PT INR APTT D-Dimer Heparin Anti-Xa Level POC ABG pH POC ABG pCO2 POC ABG pO2 Sodium Potassium Chloride Carbon Dioxide BUN Creatinine Glucose POC Glucose 282 H 209 H 261 H Lactic Acid Calcium Magnesium AST Alkaline Phosphatase Total Creatine Kinase CK-MB (CK-2) Troponin T C-Reactive Protein Total Protein Albumin Cholesterol LDL Cholesterol Direct HDL Cholesterol Free T4 Urine WBC (Auto) Urine Creatinine Urine Total Protein Crossmatch 08/18/18 08/19/18 08/19/18 23:30 04:54 05:16 WBC RBC 2.62 L Hgb 7.5 L Hct 23.1 L MCV MCH MCHC RDW 18.1 H Lymph % (Auto) [place] % (Auto) Eos % (Auto) Lymph # [place] # Eos # Seg Neutrophils % Lymphocytes % (Manual) Seg Neutrophils # Lymphocytes # (Manual) PT INR APTT D-Dimer Heparin Anti-Xa Level POC ABG pH POC ABG pCO2 POC ABG pO2 58 L Sodium Potassium Chloride Carbon Dioxide BUN Creatinine Glucose POC Glucose 231 H Lactic Acid Calcium Magnesium AST Alkaline Phosphatase Total Creatine Kinase CK-MB (CK-2) Troponin T C-Reactive Protein Total Protein Albumin Cholesterol LDL Cholesterol Direct HDL Cholesterol Free T4 Urine WBC (Auto) Urine Creatinine Urine Total Protein Crossmatch 08/19/18 08/19/18 08/19/18 05:16 05:40 11:56 WBC RBC Hgb Hct MCV MCH MCHC RDW Lymph % (Auto) [place] % (Auto) Eos % (Auto) Lymph # [place] # Eos # Seg Neutrophils % Lymphocytes % (Manual) Seg Neutrophils # Lymphocytes # (Manual) PT INR APTT D-Dimer Heparin Anti-Xa Level POC ABG pH POC ABG pCO2 POC ABG pO2 Sodium 152 H D Potassium Chloride 118.7 H Carbon Dioxide BUN 38 H Creatinine Glucose 220 H POC Glucose 227 H 213 H Lactic Acid Calcium 8.1 L D Magnesium AST Alkaline Phosphatase Total Creatine Kinase CK-MB (CK-2) Troponin T C-Reactive Protein Total Protein Albumin Cholesterol LDL Cholesterol Direct HDL Cholesterol Free T4 Urine WBC (Auto) Urine Creatinine Urine Total Protein Crossmatch 08/19/18 08/19/18 08/20/18 18:37 23:32 04:38 WBC RBC Hgb Hct MCV MCH MCHC RDW Lymph % (Auto) [place] % (Auto) Eos % (Auto) Lymph # [place] # Eos # Seg Neutrophils % Lymphocytes % (Manual) Seg Neutrophils # Lymphocytes # (Manual) PT INR APTT D-Dimer Heparin Anti-Xa Level POC ABG pH POC ABG pCO2 POC ABG pO2 140 H Sodium Potassium Chloride Carbon Dioxide BUN Creatinine Glucose POC Glucose 227 H 245 H Lactic Acid Calcium Magnesium AST Alkaline Phosphatase Total Creatine Kinase CK-MB (CK-2) Troponin T C-Reactive Protein Total Protein Albumin Cholesterol LDL Cholesterol Direct HDL Cholesterol Free T4 Urine WBC (Auto) Urine Creatinine Urine Total Protein Crossmatch 08/20/18 08/20/18 08/20/18 05:31 05:37 05:37 WBC RBC 2.60 L Hgb 7.5 L Hct 22.9 L MCV MCH MCHC RDW 18.4 H Lymph % (Auto) [place] % (Auto) Eos % (Auto) Lymph # [place] # Eos # Seg Neutrophils % Lymphocytes % (Manual) Seg Neutrophils # Lymphocytes # (Manual) PT INR APTT D-Dimer Heparin Anti-Xa Level POC ABG pH POC ABG pCO2 POC ABG pO2 Sodium 150 H Potassium Chloride 115.6 H Carbon Dioxide BUN 38 H Creatinine Glucose 276 H POC Glucose 266 H Lactic Acid Calcium 7.9 L Magnesium AST Alkaline Phosphatase Total Creatine Kinase CK-MB (CK-2) Troponin T C-Reactive Protein Total Protein Albumin Cholesterol LDL Cholesterol Direct HDL Cholesterol Free T4 Urine WBC (Auto) Urine Creatinine Urine Total Protein Crossmatch 08/20/18 08/20/18 08/20/18 14:01 18:20 23:11 WBC RBC Hgb Hct MCV MCH MCHC RDW Lymph % (Auto) [place] % (Auto) Eos % (Auto) Lymph # [place] # Eos # Seg Neutrophils % Lymphocytes % (Manual) Seg Neutrophils # Lymphocytes # (Manual) PT INR APTT D-Dimer Heparin Anti-Xa Level POC ABG pH POC ABG pCO2 POC ABG pO2 Sodium Potassium Chloride Carbon Dioxide BUN Creatinine Glucose POC Glucose 305 H 271 H 218 H Lactic Acid Calcium Magnesium AST Alkaline Phosphatase Total Creatine Kinase CK-MB (CK-2) Troponin T C-Reactive Protein Total Protein Albumin Cholesterol LDL Cholesterol Direct HDL Cholesterol Free T4 Urine WBC (Auto) Urine Creatinine Urine Total Protein Crossmatch 08/21/18 08/21/18 08/21/18 04:41 04:41 06:20 WBC RBC 2.65 L Hgb 7.6 L Hct 23.3 L MCV MCH MCHC RDW 19.1 H Lymph % (Auto) [place] % (Auto) Eos % (Auto) Lymph # [place] # Eos # Seg Neutrophils % Lymphocytes % (Manual) Seg Neutrophils # Lymphocytes # (Manual) PT INR APTT D-Dimer Heparin Anti-Xa Level POC ABG pH POC ABG pCO2 POC ABG pO2 Sodium 150 H Potassium Chloride 117.8 H Carbon Dioxide BUN 37 H Creatinine Glucose 233 H POC Glucose 262 H Lactic Acid Calcium 7.9 L Magnesium AST Alkaline Phosphatase Total Creatine Kinase CK-MB (CK-2) Troponin T C-Reactive Protein Total Protein Albumin Cholesterol LDL Cholesterol Direct HDL Cholesterol Free T4 Urine WBC (Auto) Urine Creatinine Urine Total Protein Crossmatch 08/21/18 08/21/18 08/21/18 10:18 12:04 12:36 WBC RBC Hgb Hct MCV MCH MCHC RDW Lymph % (Auto) [place] % (Auto) Eos % (Auto) Lymph # [place] # Eos # Seg Neutrophils % Lymphocytes % (Manual) Seg Neutrophils # Lymphocytes # (Manual) PT INR APTT D-Dimer Heparin Anti-Xa Level POC ABG pH POC ABG pCO2 POC ABG pO2 Sodium Potassium Chloride Carbon Dioxide BUN Creatinine Glucose POC Glucose 256 H 245 H 255 H Lactic Acid Calcium Magnesium AST Alkaline Phosphatase Total Creatine Kinase CK-MB (CK-2) Troponin T C-Reactive Protein Total Protein Albumin Cholesterol LDL Cholesterol Direct HDL Cholesterol Free T4 Urine WBC (Auto) Urine Creatinine Urine Total Protein Crossmatch 08/21/18 08/21/18 08/22/18 17:36 23:29 05:01 WBC RBC Hgb Hct MCV MCH MCHC RDW Lymph % (Auto) [place] % (Auto) Eos % (Auto) Lymph # [place] # Eos # Seg Neutrophils % Lymphocytes % (Manual) Seg Neutrophils # Lymphocytes # (Manual) PT INR APTT D-Dimer Heparin Anti-Xa Level POC ABG pH 7.466 H POC ABG pCO2 33.8 L POC ABG pO2 111 H Sodium Potassium Chloride Carbon Dioxide BUN Creatinine Glucose POC Glucose 263 H 268 H Lactic Acid Calcium Magnesium AST Alkaline Phosphatase Total Creatine Kinase CK-MB (CK-2) Troponin T C-Reactive Protein Total Protein Albumin Cholesterol LDL Cholesterol Direct HDL Cholesterol Free T4 Urine WBC (Auto) Urine Creatinine Urine Total Protein Crossmatch 08/22/18 08/22/18 08/22/18 05:05 12:05 12:15 WBC RBC Hgb Hct MCV MCH MCHC RDW Lymph % (Auto) [place] % (Auto) Eos % (Auto) Lymph # [place] # Eos # Seg Neutrophils % Lymphocytes % (Manual) Seg Neutrophils # Lymphocytes # (Manual) PT INR APTT D-Dimer Heparin Anti-Xa Level POC ABG pH POC ABG pCO2 POC ABG pO2 Sodium 147 H Potassium Chloride 113.2 H Carbon Dioxide BUN 36 H Creatinine Glucose 249 H POC Glucose 256 H 228 H Lactic Acid Calcium 8.2 L Magnesium AST Alkaline Phosphatase Total Creatine Kinase CK-MB (CK-2) Troponin T C-Reactive Protein Total Protein Albumin Cholesterol LDL Cholesterol Direct HDL Cholesterol Free T4 Urine WBC (Auto) Urine Creatinine Urine Total Protein Crossmatch 08/22/18 08/23/18 08/23/18 17:30 00:03 05:05 WBC RBC Hgb Hct MCV MCH MCHC RDW Lymph % (Auto) [place] % (Auto) Eos % (Auto) Lymph # [place] # Eos # Seg Neutrophils % Lymphocytes % (Manual) Seg Neutrophils # Lymphocytes # (Manual) PT INR APTT D-Dimer Heparin Anti-Xa Level POC ABG pH POC ABG pCO2 POC ABG pO2 Sodium Potassium Chloride Carbon Dioxide BUN Creatinine Glucose POC Glucose 291 H 259 H 247 H Lactic Acid Calcium Magnesium AST Alkaline Phosphatase Total Creatine Kinase CK-MB (CK-2) Troponin T C-Reactive Protein Total Protein Albumin Cholesterol LDL Cholesterol Direct HDL Cholesterol Free T4 Urine WBC (Auto) Urine Creatinine Urine Total Protein Crossmatch 08/23/18 08/23/18 08/23/18 05:14 12:29 17:21 WBC RBC Hgb Hct MCV MCH MCHC RDW Lymph % (Auto) [place] % (Auto) Eos % (Auto) Lymph # [place] # Eos # Seg Neutrophils % Lymphocytes % (Manual) Seg Neutrophils # Lymphocytes # (Manual) PT INR APTT D-Dimer Heparin Anti-Xa Level POC ABG pH POC ABG pCO2 POC ABG pO2 Sodium Potassium Chloride Carbon Dioxide BUN Creatinine Glucose POC Glucose 208 H 138 H 175 H Lactic Acid Calcium Magnesium AST Alkaline Phosphatase Total Creatine Kinase CK-MB (CK-2) Troponin T C-Reactive Protein Total Protein Albumin Cholesterol LDL Cholesterol Direct HDL Cholesterol Free T4 Urine WBC (Auto) Urine Creatinine Urine Total Protein Crossmatch 08/23/18 08/24/18 08/24/18 23:36 01:00 05:50 WBC RBC 2.92 L 2.90 L Hgb 8.3 L 8.2 L Hct 25.4 L 25.2 L MCV MCH MCHC RDW 18.9 H 18.6 H Lymph % (Auto) [place] % (Auto) 9.2 H Eos % (Auto) Lymph # [place] # Eos # Seg Neutrophils % Lymphocytes % (Manual) Seg Neutrophils # Lymphocytes # (Manual) PT INR APTT D-Dimer Heparin Anti-Xa Level POC ABG pH POC ABG pCO2 POC ABG pO2 Sodium Potassium Chloride Carbon Dioxide BUN Creatinine Glucose POC Glucose 163 H Lactic Acid Calcium Magnesium AST Alkaline Phosphatase Total Creatine Kinase CK-MB (CK-2) Troponin T C-Reactive Protein Total Protein Albumin Cholesterol LDL Cholesterol Direct HDL Cholesterol Free T4 Urine WBC (Auto) Urine Creatinine Urine Total Protein Crossmatch 08/24/18 08/24/18 08/24/18 05:50 12:26 18:37 WBC RBC Hgb Hct MCV MCH MCHC RDW Lymph % (Auto) [place] % (Auto) Eos % (Auto) Lymph # [place] # Eos # Seg Neutrophils % Lymphocytes % (Manual) Seg Neutrophils # Lymphocytes # (Manual) PT INR APTT D-Dimer Heparin Anti-Xa Level POC ABG pH POC ABG pCO2 POC ABG pO2 Sodium 147 H Potassium Chloride 113.6 H Carbon Dioxide BUN 33 H Creatinine Glucose 210 H POC Glucose 223 H 166 H Lactic Acid Calcium 8.3 L Magnesium AST Alkaline Phosphatase Total Creatine Kinase CK-MB (CK-2) Troponin T C-Reactive Protein Total Protein Albumin Cholesterol LDL Cholesterol Direct HDL Cholesterol Free T4 Urine WBC (Auto) Urine Creatinine Urine Total Protein Crossmatch 08/24/18 08/25/18 08/25/18 23:47 04:55 04:55 WBC RBC 2.94 L Hgb 8.4 L Hct 25.1 L MCV MCH MCHC RDW 18.2 H Lymph % (Auto) [place] % (Auto) Eos % (Auto) Lymph # [place] # Eos # Seg Neutrophils % Lymphocytes % (Manual) Seg Neutrophils # Lymphocytes # (Manual) PT INR APTT D-Dimer Heparin Anti-Xa Level POC ABG pH POC ABG pCO2 POC ABG pO2 Sodium Potassium Chloride 110.2 H Carbon Dioxide BUN 30 H Creatinine Glucose POC Glucose 126 H Lactic Acid Calcium 8.1 L Magnesium AST Alkaline Phosphatase Total Creatine Kinase CK-MB (CK-2) Troponin T C-Reactive Protein Total Protein Albumin Cholesterol LDL Cholesterol Direct HDL Cholesterol Free T4 Urine WBC (Auto) Urine Creatinine Urine Total Protein Crossmatch 08/25/18 08/26/18 08/26/18 12:40 04:39 04:39 WBC RBC 2.96 L Hgb 8.3 L Hct 25.7 L MCV MCH MCHC RDW 18.2 H Lymph % (Auto) 10.5 L [place] % (Auto) 9.3 H Eos % (Auto) Lymph # 0.8 L [place] # Eos # Seg Neutrophils % 77.0 H Lymphocytes % (Manual) Seg Neutrophils # Lymphocytes # (Manual) PT INR APTT D-Dimer Heparin Anti-Xa Level POC ABG pH POC ABG pCO2 POC ABG pO2 Sodium 147 H Potassium Chloride 113.5 H Carbon Dioxide BUN 27 H Creatinine 0.7 L Glucose 106 H POC Glucose Lactic Acid Calcium 8.0 L Magnesium AST Alkaline Phosphatase Total Creatine Kinase CK-MB (CK-2) Troponin T C-Reactive Protein Total Protein Albumin Cholesterol LDL Cholesterol Direct HDL Cholesterol Free T4 Urine WBC (Auto) > 182.0 H Urine Creatinine Urine Total Protein Crossmatch 08/26/18 08/26/18 08/26/18 05:27 09:00 09:54 WBC RBC Hgb Hct MCV MCH MCHC RDW Lymph % (Auto) [place] % (Auto) Eos % (Auto) Lymph # [place] # Eos # Seg Neutrophils % Lymphocytes % (Manual) Seg Neutrophils # Lymphocytes # (Manual) PT INR APTT D-Dimer Heparin Anti-Xa Level POC ABG pH POC ABG pCO2 POC ABG pO2 Sodium Potassium Chloride Carbon Dioxide BUN Creatinine Glucose POC Glucose 120 H 170 H Lactic Acid Calcium Magnesium AST Alkaline Phosphatase Total Creatine Kinase CK-MB (CK-2) Troponin T C-Reactive Protein Total Protein Albumin Cholesterol LDL Cholesterol Direct HDL Cholesterol Free T4 0.51 L Urine WBC (Auto) Urine Creatinine Urine Total Protein Crossmatch 08/26/18 08/26/18 08/27/18 14:52 17:50 06:30 WBC RBC Hgb Hct MCV MCH MCHC RDW Lymph % (Auto) [place] % (Auto) Eos % (Auto) Lymph # [place] # Eos # Seg Neutrophils % Lymphocytes % (Manual) Seg Neutrophils # Lymphocytes # (Manual) PT INR APTT D-Dimer Heparin Anti-Xa Level POC ABG pH POC ABG pCO2 POC ABG pO2 Sodium 150 H Potassium Chloride 114.8 H Carbon Dioxide BUN 24 H Creatinine 0.7 L Glucose 131 H POC Glucose 166 H 107 H Lactic Acid Calcium 7.8 L Magnesium AST Alkaline Phosphatase Total Creatine Kinase CK-MB (CK-2) Troponin T C-Reactive Protein Total Protein Albumin Cholesterol LDL Cholesterol Direct HDL Cholesterol Free T4 Urine WBC (Auto) Urine Creatinine Urine Total Protein Crossmatch 08/27/18 08/27/18 08/27/18 08:22 14:20 16:06 WBC RBC Hgb Hct MCV MCH MCHC RDW Lymph % (Auto) [place] % (Auto) Eos % (Auto) Lymph # [place] # Eos # Seg Neutrophils % Lymphocytes % (Manual) Seg Neutrophils # Lymphocytes # (Manual) PT INR APTT D-Dimer Heparin Anti-Xa Level POC ABG pH POC ABG pCO2 POC ABG pO2 Sodium Potassium Chloride Carbon Dioxide BUN Creatinine Glucose POC Glucose 112 H 151 H 158 H Lactic Acid Calcium Magnesium AST Alkaline Phosphatase Total Creatine Kinase CK-MB (CK-2) Troponin T C-Reactive Protein Total Protein Albumin Cholesterol LDL Cholesterol Direct HDL Cholesterol Free T4 Urine WBC (Auto) Urine Creatinine Urine Total Protein Crossmatch 08/27/18 08/27/18 08/28/18 20:09 21:25 02:03 WBC RBC Hgb Hct MCV MCH MCHC RDW Lymph % (Auto) [place] % (Auto) Eos % (Auto) Lymph # [place] # Eos # Seg Neutrophils % Lymphocytes % (Manual) Seg Neutrophils # Lymphocytes # (Manual) PT INR APTT D-Dimer Heparin Anti-Xa Level POC ABG pH POC ABG pCO2 POC ABG pO2 130 H Sodium Potassium Chloride Carbon Dioxide BUN Creatinine Glucose POC Glucose 226 H 250 H Lactic Acid Calcium Magnesium AST Alkaline Phosphatase Total Creatine Kinase CK-MB (CK-2) Troponin T C-Reactive Protein Total Protein Albumin Cholesterol LDL Cholesterol Direct HDL Cholesterol Free T4 Urine WBC (Auto) Urine Creatinine Urine Total Protein Crossmatch 08/28/18 08/28/18 08/28/18 05:56 07:15 13:17 WBC RBC Hgb Hct MCV MCH MCHC RDW Lymph % (Auto) [place] % (Auto) Eos % (Auto) Lymph # [place] # Eos # Seg Neutrophils % Lymphocytes % (Manual) Seg Neutrophils # Lymphocytes # (Manual) PT INR APTT D-Dimer Heparin Anti-Xa Level POC ABG pH POC ABG pCO2 POC ABG pO2 Sodium Potassium Chloride Carbon Dioxide BUN Creatinine Glucose 198 H POC Glucose 221 H 188 H Lactic Acid Calcium 7.7 L Magnesium AST Alkaline Phosphatase Total Creatine Kinase CK-MB (CK-2) Troponin T C-Reactive Protein Total Protein Albumin Cholesterol LDL Cholesterol Direct HDL Cholesterol Free T4 Urine WBC (Auto) Urine Creatinine Urine Total Protein Crossmatch 08/28/18 08/28/18 08/28/18 15:53 18:12 22:35 WBC RBC Hgb Hct MCV MCH MCHC RDW Lymph % (Auto) [place] % (Auto) Eos % (Auto) Lymph # [place] # Eos # Seg Neutrophils % Lymphocytes % (Manual) Seg Neutrophils # Lymphocytes # (Manual) PT INR APTT D-Dimer Heparin Anti-Xa Level POC ABG pH 7.457 H POC ABG pCO2 POC ABG pO2 Sodium Potassium Chloride Carbon Dioxide BUN Creatinine Glucose POC Glucose 197 H 225 H Lactic Acid Calcium Magnesium AST Alkaline Phosphatase Total Creatine Kinase CK-MB (CK-2) Troponin T C-Reactive Protein Total Protein Albumin Cholesterol LDL Cholesterol Direct HDL Cholesterol Free T4 Urine WBC (Auto) Urine Creatinine Urine Total Protein Crossmatch 08/29/18 08/29/18 08/29/18 03:04 10:47 14:25 WBC RBC Hgb Hct MCV MCH MCHC RDW Lymph % (Auto) [place] % (Auto) Eos % (Auto) Lymph # [place] # Eos # Seg Neutrophils % Lymphocytes % (Manual) Seg Neutrophils # Lymphocytes # (Manual) PT INR APTT D-Dimer Heparin Anti-Xa Level POC ABG pH POC ABG pCO2 POC ABG pO2 Sodium Potassium Chloride Carbon Dioxide BUN Creatinine Glucose POC Glucose 223 H 371 H 266 H Lactic Acid Calcium Magnesium AST Alkaline Phosphatase Total Creatine Kinase CK-MB (CK-2) Troponin T C-Reactive Protein Total Protein Albumin Cholesterol LDL Cholesterol Direct HDL Cholesterol Free T4 Urine WBC (Auto) Urine Creatinine Urine Total Protein Crossmatch 08/29/18 08/29/18 08/29/18 16:45 17:36 21:33 WBC RBC Hgb Hct MCV MCH MCHC RDW Lymph % (Auto) [place] % (Auto) Eos % (Auto) Lymph # [place] # Eos # Seg Neutrophils % Lymphocytes % (Manual) Seg Neutrophils # Lymphocytes # (Manual) PT INR APTT D-Dimer Heparin Anti-Xa Level POC ABG pH POC ABG pCO2 POC ABG pO2 118 H Sodium Potassium Chloride Carbon Dioxide BUN Creatinine Glucose POC Glucose 253 H 204 H Lactic Acid Calcium Magnesium AST Alkaline Phosphatase Total Creatine Kinase CK-MB (CK-2) Troponin T C-Reactive Protein Total Protein Albumin Cholesterol LDL Cholesterol Direct HDL Cholesterol Free T4 Urine WBC (Auto) Urine Creatinine Urine Total Protein Crossmatch 08/30/18 08/30/18 08/30/18 01:33 05:27 05:40 WBC RBC 3.12 L Hgb 8.5 L Hct 25.9 L MCV 83 L MCH 27 L MCHC RDW 18.3 H Lymph % (Auto) [place] % (Auto) 7.8 H Eos % (Auto) 8.8 H Lymph # [place] # Eos # 0.6 H Seg Neutrophils % Lymphocytes % (Manual) Seg Neutrophils # Lymphocytes # (Manual) PT INR APTT D-Dimer Heparin Anti-Xa Level POC ABG pH POC ABG pCO2 POC ABG pO2 Sodium Potassium Chloride Carbon Dioxide BUN Creatinine Glucose POC Glucose 157 H 178 H Lactic Acid Calcium Magnesium AST Alkaline Phosphatase Total Creatine Kinase CK-MB (CK-2) Troponin T C-Reactive Protein Total Protein Albumin Cholesterol LDL Cholesterol Direct HDL Cholesterol Free T4 Urine WBC (Auto) Urine Creatinine Urine Total Protein Crossmatch 08/30/18 08/30/18 08/30/18 05:40 09:28 11:41 WBC RBC Hgb Hct MCV MCH MCHC RDW Lymph % (Auto) [place] % (Auto) Eos % (Auto) Lymph # [place] # Eos # Seg Neutrophils % Lymphocytes % (Manual) Seg Neutrophils # Lymphocytes # (Manual) PT INR APTT D-Dimer Heparin Anti-Xa Level POC ABG pH POC ABG pCO2 POC ABG pO2 Sodium Potassium Chloride Carbon Dioxide BUN Creatinine 0.7 L Glucose 189 H POC Glucose 216 H 257 H Lactic Acid Calcium 8.2 L Magnesium AST 50 H Alkaline Phosphatase 158 H Total Creatine Kinase CK-MB (CK-2) Troponin T C-Reactive Protein Total Protein Albumin 1.6 L Cholesterol LDL Cholesterol Direct HDL Cholesterol Free T4 Urine WBC (Auto) Urine Creatinine Urine Total Protein Crossmatch 08/30/18 08/30/18 08/30/18 14:34 17:07 21:56 WBC RBC Hgb Hct MCV MCH MCHC RDW Lymph % (Auto) [place] % (Auto) Eos % (Auto) Lymph # [place] # Eos # Seg Neutrophils % Lymphocytes % (Manual) Seg Neutrophils # Lymphocytes # (Manual) PT INR APTT D-Dimer Heparin Anti-Xa Level POC ABG pH POC ABG pCO2 POC ABG pO2 Sodium Potassium Chloride Carbon Dioxide BUN Creatinine Glucose POC Glucose 263 H 263 H 234 H Lactic Acid Calcium Magnesium AST Alkaline Phosphatase Total Creatine Kinase CK-MB (CK-2) Troponin T C-Reactive Protein Total Protein Albumin Cholesterol LDL Cholesterol Direct HDL Cholesterol Free T4 Urine WBC (Auto) Urine Creatinine Urine Total Protein Crossmatch 08/31/18 08/31/18 08/31/18 02:02 05:29 09:24 WBC RBC Hgb Hct MCV MCH MCHC RDW Lymph % (Auto) [place] % (Auto) Eos % (Auto) Lymph # [place] # Eos # Seg Neutrophils % Lymphocytes % (Manual) Seg Neutrophils # Lymphocytes # (Manual) PT INR APTT D-Dimer Heparin Anti-Xa Level POC ABG pH POC ABG pCO2 POC ABG pO2 Sodium Potassium Chloride Carbon Dioxide BUN Creatinine Glucose POC Glucose 151 H 156 H 107 H Lactic Acid Calcium Magnesium AST Alkaline Phosphatase Total Creatine Kinase CK-MB (CK-2) Troponin T C-Reactive Protein Total Protein Albumin Cholesterol LDL Cholesterol Direct HDL Cholesterol Free T4 Urine WBC (Auto) Urine Creatinine Urine Total Protein Crossmatch 08/31/18 08/31/18 08/31/18 13:51 17:28 21:40 WBC RBC Hgb Hct MCV MCH MCHC RDW Lymph % (Auto) [place] % (Auto) Eos % (Auto) Lymph # [place] # Eos # Seg Neutrophils % Lymphocytes % (Manual) Seg Neutrophils # Lymphocytes # (Manual) PT INR APTT D-Dimer Heparin Anti-Xa Level POC ABG pH POC ABG pCO2 POC ABG pO2 Sodium Potassium Chloride Carbon Dioxide BUN Creatinine Glucose POC Glucose 170 H 239 H 209 H Lactic Acid Calcium Magnesium AST Alkaline Phosphatase Total Creatine Kinase CK-MB (CK-2) Troponin T C-Reactive Protein Total Protein Albumin Cholesterol LDL Cholesterol Direct HDL Cholesterol Free T4 Urine WBC (Auto) Urine Creatinine Urine Total Protein Crossmatch 08/31/18 08/31/18 09/01/18 22:25 22:25 01:47 WBC RBC Hgb Hct MCV MCH MCHC RDW Lymph % (Auto) [place] % (Auto) Eos % (Auto) Lymph # [place] # Eos # Seg Neutrophils % Lymphocytes % (Manual) Seg Neutrophils # Lymphocytes # (Manual) PT INR APTT D-Dimer Heparin Anti-Xa Level POC ABG pH POC ABG pCO2 45.6 H POC ABG pO2 135 H Sodium Potassium Chloride Carbon Dioxide BUN Creatinine Glucose POC Glucose 208 H 223 H Lactic Acid Calcium Magnesium AST Alkaline Phosphatase Total Creatine Kinase CK-MB (CK-2) Troponin T C-Reactive Protein Total Protein Albumin Cholesterol LDL Cholesterol Direct HDL Cholesterol Free T4 Urine WBC (Auto) Urine Creatinine Urine Total Protein Crossmatch 09/01/18 09/01/18 09/01/18 05:18 05:19 05:19 WBC RBC 3.08 L Hgb 8.5 L Hct 25.6 L MCV 83 L MCH MCHC RDW 18.7 H Lymph % (Auto) [place] % (Auto) 7.9 H Eos % (Auto) 6.1 H Lymph # [place] # Eos # Seg Neutrophils % Lymphocytes % (Manual) Seg Neutrophils # Lymphocytes # (Manual) PT INR APTT D-Dimer Heparin Anti-Xa Level POC ABG pH POC ABG pCO2 POC ABG pO2 Sodium Potassium Chloride 107.9 H Carbon Dioxide BUN 21 H Creatinine 0.7 L Glucose 188 H POC Glucose 236 H Lactic Acid Calcium Magnesium AST Alkaline Phosphatase Total Creatine Kinase CK-MB (CK-2) Troponin T C-Reactive Protein Total Protein Albumin Cholesterol LDL Cholesterol Direct HDL Cholesterol Free T4 Urine WBC (Auto) Urine Creatinine Urine Total Protein Crossmatch 09/01/18 09/01/18 09/01/18 09:29 14:25 18:20 WBC RBC Hgb Hct MCV MCH MCHC RDW Lymph % (Auto) [place] % (Auto) Eos % (Auto) Lymph # [place] # Eos # Seg Neutrophils % Lymphocytes % (Manual) Seg Neutrophils # Lymphocytes # (Manual) PT INR APTT D-Dimer Heparin Anti-Xa Level POC ABG pH POC ABG pCO2 POC ABG pO2 Sodium Potassium Chloride Carbon Dioxide BUN Creatinine Glucose POC Glucose 231 H 294 H 215 H Lactic Acid Calcium Magnesium AST Alkaline Phosphatase Total Creatine Kinase CK-MB (CK-2) Troponin T C-Reactive Protein Total Protein Albumin Cholesterol LDL Cholesterol Direct HDL Cholesterol Free T4 Urine WBC (Auto) Urine Creatinine Urine Total Protein Crossmatch 09/01/18 09/02/18 09/02/18 21:21 03:28 05:25 WBC RBC Hgb Hct MCV MCH MCHC RDW Lymph % (Auto) [place] % (Auto) Eos % (Auto) Lymph # [place] # Eos # Seg Neutrophils % Lymphocytes % (Manual) Seg Neutrophils # Lymphocytes # (Manual) PT INR APTT D-Dimer Heparin Anti-Xa Level POC ABG pH POC ABG pCO2 POC ABG pO2 Sodium Potassium Chloride Carbon Dioxide BUN Creatinine Glucose POC Glucose 236 H 194 H 183 H Lactic Acid Calcium Magnesium AST Alkaline Phosphatase Total Creatine Kinase CK-MB (CK-2) Troponin T C-Reactive Protein Total Protein Albumin Cholesterol LDL Cholesterol Direct HDL Cholesterol Free T4 Urine WBC (Auto) Urine Creatinine Urine Total Protein Crossmatch 09/02/18 09/02/18 09/02/18 09:16 15:30 17:20 WBC RBC Hgb Hct MCV MCH MCHC RDW Lymph % (Auto) [place] % (Auto) Eos % (Auto) Lymph # [place] # Eos # Seg Neutrophils % Lymphocytes % (Manual) Seg Neutrophils # Lymphocytes # (Manual) PT INR APTT D-Dimer Heparin Anti-Xa Level POC ABG pH POC ABG pCO2 POC ABG pO2 Sodium Potassium Chloride Carbon Dioxide BUN Creatinine Glucose POC Glucose 251 H 303 H 316 H Lactic Acid Calcium Magnesium AST Alkaline Phosphatase Total Creatine Kinase CK-MB (CK-2) Troponin T C-Reactive Protein Total Protein Albumin Cholesterol LDL Cholesterol Direct HDL Cholesterol Free T4 Urine WBC (Auto) Urine Creatinine Urine Total Protein Crossmatch 09/02/18 09/03/18 09/03/18 21:25 03:32 05:20 WBC RBC Hgb Hct MCV MCH MCHC RDW Lymph % (Auto) [place] % (Auto) Eos % (Auto) Lymph # [place] # Eos # Seg Neutrophils % Lymphocytes % (Manual) Seg Neutrophils # Lymphocytes # (Manual) PT INR APTT D-Dimer Heparin Anti-Xa Level POC ABG pH POC ABG pCO2 POC ABG pO2 Sodium Potassium Chloride Carbon Dioxide BUN Creatinine Glucose POC Glucose 242 H 305 H 225 H Lactic Acid Calcium Magnesium AST Alkaline Phosphatase Total Creatine Kinase CK-MB (CK-2) Troponin T C-Reactive Protein Total Protein Albumin Cholesterol LDL Cholesterol Direct HDL Cholesterol Free T4 Urine WBC (Auto) Urine Creatinine Urine Total Protein Crossmatch 09/03/18 09/03/18 09/03/18 07:52 07:52 10:19 WBC RBC 3.29 L Hgb 9.0 L Hct 27.3 L MCV 83 L MCH 27 L MCHC RDW 18.4 H Lymph % (Auto) [place] % (Auto) Eos % (Auto) Lymph # [place] # Eos # Seg Neutrophils % Lymphocytes % (Manual) Seg Neutrophils # Lymphocytes # (Manual) PT INR APTT D-Dimer Heparin Anti-Xa Level POC ABG pH POC ABG pCO2 POC ABG pO2 Sodium Potassium Chloride Carbon Dioxide BUN 23 H Creatinine Glucose 205 H POC Glucose 228 H Lactic Acid Calcium 7.9 L Magnesium AST Alkaline Phosphatase Total Creatine Kinase CK-MB (CK-2) Troponin T C-Reactive Protein Total Protein Albumin Cholesterol LDL Cholesterol Direct HDL Cholesterol Free T4 Urine WBC (Auto) Urine Creatinine Urine Total Protein Crossmatch 09/03/18 09/03/18 09/03/18 13:42 17:22 21:33 WBC RBC Hgb Hct MCV MCH MCHC RDW Lymph % (Auto) [place] % (Auto) Eos % (Auto) Lymph # [place] # Eos # Seg Neutrophils % Lymphocytes % (Manual) Seg Neutrophils # Lymphocytes # (Manual) PT INR APTT D-Dimer Heparin Anti-Xa Level POC ABG pH POC ABG pCO2 POC ABG pO2 Sodium Potassium Chloride Carbon Dioxide BUN Creatinine Glucose POC Glucose 221 H 186 H 179 H Lactic Acid Calcium Magnesium AST Alkaline Phosphatase Total Creatine Kinase CK-MB (CK-2) Troponin T C-Reactive Protein Total Protein Albumin Cholesterol LDL Cholesterol Direct HDL Cholesterol Free T4 Urine WBC (Auto) Urine Creatinine Urine Total Protein Crossmatch 09/04/18 09/04/18 09/04/18 02:07 05:54 11:03 WBC RBC Hgb Hct MCV MCH MCHC RDW Lymph % (Auto) [place] % (Auto) Eos % (Auto) Lymph # [place] # Eos # Seg Neutrophils % Lymphocytes % (Manual) Seg Neutrophils # Lymphocytes # (Manual) PT INR APTT D-Dimer Heparin Anti-Xa Level POC ABG pH POC ABG pCO2 POC ABG pO2 Sodium Potassium Chloride Carbon Dioxide BUN Creatinine Glucose POC Glucose 174 H 171 H 181 H Lactic Acid Calcium Magnesium AST Alkaline Phosphatase Total Creatine Kinase CK-MB (CK-2) Troponin T C-Reactive Protein Total Protein Albumin Cholesterol LDL Cholesterol Direct HDL Cholesterol Free T4 Urine WBC (Auto) Urine Creatinine Urine Total Protein Crossmatch 09/04/18 09/04/18 09/04/18 14:59 18:24 21:50 WBC RBC Hgb Hct MCV MCH MCHC RDW Lymph % (Auto) [place] % (Auto) Eos % (Auto) Lymph # [place] # Eos # Seg Neutrophils % Lymphocytes % (Manual) Seg Neutrophils # Lymphocytes # (Manual) PT INR APTT D-Dimer Heparin Anti-Xa Level POC ABG pH POC ABG pCO2 POC ABG pO2 Sodium Potassium Chloride Carbon Dioxide BUN Creatinine Glucose POC Glucose 204 H 236 H 197 H Lactic Acid Calcium Magnesium AST Alkaline Phosphatase Total Creatine Kinase CK-MB (CK-2) Troponin T C-Reactive Protein Total Protein Albumin Cholesterol LDL Cholesterol Direct HDL Cholesterol Free T4 Urine WBC (Auto) Urine Creatinine Urine Total Protein Crossmatch 09/05/18 09/05/18 09/05/18 01:32 04:52 04:52 WBC RBC 3.16 L Hgb 8.7 L Hct 26.0 L MCV 82 L MCH MCHC RDW 18.9 H Lymph % (Auto) [place] % (Auto) Eos % (Auto) Lymph # [place] # Eos # Seg Neutrophils % Lymphocytes % (Manual) Seg Neutrophils # Lymphocytes # (Manual) PT INR APTT D-Dimer Heparin Anti-Xa Level POC ABG pH POC ABG pCO2 POC ABG pO2 Sodium Potassium Chloride 107.2 H Carbon Dioxide BUN 23 H Creatinine 0.7 L Glucose 215 H POC Glucose 210 H Lactic Acid Calcium 8.3 L Magnesium AST Alkaline Phosphatase Total Creatine Kinase CK-MB (CK-2) Troponin T C-Reactive Protein Total Protein Albumin Cholesterol LDL Cholesterol Direct HDL Cholesterol Free T4 Urine WBC (Auto) Urine Creatinine Urine Total Protein Crossmatch 09/05/18 09/05/18 09/05/18 05:36 10:26 13:11 WBC RBC Hgb Hct MCV MCH MCHC RDW Lymph % (Auto) [place] % (Auto) Eos % (Auto) Lymph # [place] # Eos # Seg Neutrophils % Lymphocytes % (Manual) Seg Neutrophils # Lymphocytes # (Manual) PT INR APTT D-Dimer Heparin Anti-Xa Level POC ABG pH POC ABG pCO2 POC ABG pO2 Sodium Potassium Chloride Carbon Dioxide BUN Creatinine Glucose POC Glucose 216 H 206 H 161 H Lactic Acid Calcium Magnesium AST Alkaline Phosphatase Total Creatine Kinase CK-MB (CK-2) Troponin T C-Reactive Protein Total Protein Albumin Cholesterol LDL Cholesterol Direct HDL Cholesterol Free T4 Urine WBC (Auto) Urine Creatinine Urine Total Protein Crossmatch 09/05/18 09/05/18 09/05/18 18:27 18:32 22:05 WBC RBC Hgb Hct MCV MCH MCHC RDW Lymph % (Auto) [place] % (Auto) Eos % (Auto) Lymph # [place] # Eos # Seg Neutrophils % Lymphocytes % (Manual) Seg Neutrophils # Lymphocytes # (Manual) PT INR APTT D-Dimer Heparin Anti-Xa Level POC ABG pH 7.478 H POC ABG pCO2 POC ABG pO2 138 H Sodium Potassium Chloride Carbon Dioxide BUN Creatinine Glucose POC Glucose 154 H 149 H Lactic Acid Calcium Magnesium AST Alkaline Phosphatase Total Creatine Kinase CK-MB (CK-2) Troponin T C-Reactive Protein Total Protein Albumin Cholesterol LDL Cholesterol Direct HDL Cholesterol Free T4 Urine WBC (Auto) Urine Creatinine Urine Total Protein Crossmatch 09/06/18 09/06/18 09/06/18 04:40 08:30 10:06 WBC RBC Hgb Hct MCV MCH MCHC RDW Lymph % (Auto) [place] % (Auto) Eos % (Auto) Lymph # [place] # Eos # Seg Neutrophils % Lymphocytes % (Manual) Seg Neutrophils # Lymphocytes # (Manual) PT INR APTT D-Dimer Heparin Anti-Xa Level POC ABG pH POC ABG pCO2 POC ABG pO2 Sodium Potassium Chloride Carbon Dioxide BUN Creatinine Glucose POC Glucose 140 H 188 H 199 H Lactic Acid Calcium Magnesium AST Alkaline Phosphatase Total Creatine Kinase CK-MB (CK-2) Troponin T C-Reactive Protein Total Protein Albumin Cholesterol LDL Cholesterol Direct HDL Cholesterol Free T4 Urine WBC (Auto) Urine Creatinine Urine Total Protein Crossmatch 09/06/18 09/06/18 09/06/18 12:13 14:23 17:11 WBC RBC Hgb Hct MCV MCH MCHC RDW Lymph % (Auto) [place] % (Auto) Eos % (Auto) Lymph # [place] # Eos # Seg Neutrophils % Lymphocytes % (Manual) Seg Neutrophils # Lymphocytes # (Manual) PT INR APTT D-Dimer Heparin Anti-Xa Level POC ABG pH POC ABG pCO2 POC ABG pO2 Sodium Potassium Chloride Carbon Dioxide BUN Creatinine Glucose POC Glucose 177 H 180 H 216 H Lactic Acid Calcium Magnesium AST Alkaline Phosphatase Total Creatine Kinase CK-MB (CK-2) Troponin T C-Reactive Protein Total Protein Albumin Cholesterol LDL Cholesterol Direct HDL Cholesterol Free T4 Urine WBC (Auto) Urine Creatinine Urine Total Protein Crossmatch 09/06/18 09/07/18 09/07/18 21:47 02:02 04:55 WBC RBC 3.08 L Hgb 8.5 L Hct 25.2 L MCV 82 L MCH MCHC RDW 18.8 H Lymph % (Auto) [place] % (Auto) Eos % (Auto) Lymph # 0.8 L [place] # Eos # Seg Neutrophils % 84.8 H Lymphocytes % (Manual) Seg Neutrophils # Lymphocytes # (Manual) PT INR APTT D-Dimer Heparin Anti-Xa Level POC ABG pH POC ABG pCO2 POC ABG pO2 Sodium Potassium Chloride Carbon Dioxide BUN Creatinine Glucose POC Glucose 275 H 291 H Lactic Acid Calcium Magnesium AST Alkaline Phosphatase Total Creatine Kinase CK-MB (CK-2) Troponin T C-Reactive Protein Total Protein Albumin Cholesterol LDL Cholesterol Direct HDL Cholesterol Free T4 Urine WBC (Auto) Urine Creatinine Urine Total Protein Crossmatch 09/07/18 09/07/18 09/07/18 04:55 06:02 10:27 WBC RBC Hgb Hct MCV MCH MCHC RDW Lymph % (Auto) [place] % (Auto) Eos % (Auto) Lymph # [place] # Eos # Seg Neutrophils % Lymphocytes % (Manual) Seg Neutrophils # Lymphocytes # (Manual) PT INR APTT D-Dimer Heparin Anti-Xa Level POC ABG pH POC ABG pCO2 POC ABG pO2 Sodium Potassium Chloride Carbon Dioxide BUN 30 H Creatinine 0.7 L Glucose 291 H POC Glucose 320 H 365 H Lactic Acid Calcium Magnesium AST Alkaline Phosphatase Total Creatine Kinase CK-MB (CK-2) Troponin T C-Reactive Protein Total Protein Albumin Cholesterol LDL Cholesterol Direct HDL Cholesterol Free T4 Urine WBC (Auto) Urine Creatinine Urine Total Protein Crossmatch 09/07/18 09/07/18 09/07/18 13:52 17:12 21:29 WBC RBC Hgb Hct MCV MCH MCHC RDW Lymph % (Auto) [place] % (Auto) Eos % (Auto) Lymph # [place] # Eos # Seg Neutrophils % Lymphocytes % (Manual) Seg Neutrophils # Lymphocytes # (Manual) PT INR APTT D-Dimer Heparin Anti-Xa Level POC ABG pH POC ABG pCO2 POC ABG pO2 Sodium Potassium Chloride Carbon Dioxide BUN Creatinine Glucose POC Glucose 364 H 338 H 242 H Lactic Acid Calcium Magnesium AST Alkaline Phosphatase Total Creatine Kinase CK-MB (CK-2) Troponin T C-Reactive Protein Total Protein Albumin Cholesterol LDL Cholesterol Direct HDL Cholesterol Free T4 Urine WBC (Auto) Urine Creatinine Urine Total Protein Crossmatch 09/07/18 09/08/18 09/08/18 22:24 02:02 04:22 WBC 14.8 H RBC 3.15 L Hgb 8.5 L Hct 26.3 L MCV 83 L MCH 27 L MCHC RDW 19.6 H Lymph % (Auto) [place] % (Auto) Eos % (Auto) Lymph # [place] # Eos # Seg Neutrophils % Lymphocytes % (Manual) Seg Neutrophils # Lymphocytes # (Manual) PT INR APTT D-Dimer Heparin Anti-Xa Level POC ABG pH 7.484 H POC ABG pCO2 POC ABG pO2 61 L Sodium Potassium Chloride Carbon Dioxide BUN Creatinine Glucose POC Glucose 324 H Lactic Acid Calcium Magnesium AST Alkaline Phosphatase Total Creatine Kinase CK-MB (CK-2) Troponin T C-Reactive Protein Total Protein Albumin Cholesterol LDL Cholesterol Direct HDL Cholesterol Free T4 Urine WBC (Auto) Urine Creatinine Urine Total Protein Crossmatch 09/08/18 09/08/18 09/08/18 04:22 05:33 09:40 WBC RBC Hgb Hct MCV MCH MCHC RDW Lymph % (Auto) [place] % (Auto) Eos % (Auto) Lymph # [place] # Eos # Seg Neutrophils % Lymphocytes % (Manual) Seg Neutrophils # Lymphocytes # (Manual) PT INR APTT D-Dimer Heparin Anti-Xa Level POC ABG pH POC ABG pCO2 POC ABG pO2 Sodium Potassium Chloride Carbon Dioxide BUN 39 H Creatinine Glucose 320 H POC Glucose 324 H 329 H Lactic Acid Calcium 8.3 L Magnesium AST Alkaline Phosphatase Total Creatine Kinase CK-MB (CK-2) Troponin T C-Reactive Protein Total Protein Albumin Cholesterol LDL Cholesterol Direct HDL Cholesterol Free T4 Urine WBC (Auto) Urine Creatinine Urine Total Protein Crossmatch 09/08/18 09/08/18 09/08/18 13:11 18:02 21:27 WBC RBC Hgb Hct MCV MCH MCHC RDW Lymph % (Auto) [place] % (Auto) Eos % (Auto) Lymph # [place] # Eos # Seg Neutrophils % Lymphocytes % (Manual) Seg Neutrophils # Lymphocytes # (Manual) PT INR APTT D-Dimer Heparin Anti-Xa Level POC ABG pH POC ABG pCO2 POC ABG pO2 Sodium Potassium Chloride Carbon Dioxide BUN Creatinine Glucose POC Glucose 369 H 331 H 304 H Lactic Acid Calcium Magnesium AST Alkaline Phosphatase Total Creatine Kinase CK-MB (CK-2) Troponin T C-Reactive Protein Total Protein Albumin Cholesterol LDL Cholesterol Direct HDL Cholesterol Free T4 Urine WBC (Auto) Urine Creatinine Urine Total Protein Crossmatch 09/09/18 09/09/18 09/09/18 02:03 05:29 09:20 WBC RBC Hgb Hct MCV MCH MCHC RDW Lymph % (Auto) [place] % (Auto) Eos % (Auto) Lymph # [place] # Eos # Seg Neutrophils % Lymphocytes % (Manual) Seg Neutrophils # Lymphocytes # (Manual) PT INR APTT D-Dimer Heparin Anti-Xa Level POC ABG pH POC ABG pCO2 POC ABG pO2 Sodium Potassium Chloride Carbon Dioxide BUN Creatinine Glucose POC Glucose 361 H 204 H 292 H Lactic Acid Calcium Magnesium AST Alkaline Phosphatase Total Creatine Kinase CK-MB (CK-2) Troponin T C-Reactive Protein Total Protein Albumin Cholesterol LDL Cholesterol Direct HDL Cholesterol Free T4 Urine WBC (Auto) Urine Creatinine Urine Total Protein Crossmatch 09/09/18 09/09/18 14:20 15:04 WBC RBC Hgb Hct MCV MCH MCHC RDW Lymph % (Auto) [place] % (Auto) Eos % (Auto) Lymph # [place] # Eos # Seg Neutrophils % Lymphocytes % (Manual) Seg Neutrophils # Lymphocytes # (Manual) PT INR APTT D-Dimer Heparin Anti-Xa Level POC ABG pH 7.464 H POC ABG pCO2 POC ABG pO2 109 H Sodium Potassium Chloride Carbon Dioxide BUN Creatinine Glucose POC Glucose 253 H Lactic Acid Calcium Magnesium AST Alkaline Phosphatase Total Creatine Kinase CK-MB (CK-2) Troponin T C-Reactive Protein Total Protein Albumin Cholesterol LDL Cholesterol Direct HDL Cholesterol Free T4 Urine WBC (Auto) Urine Creatinine Urine Total Protein Crossmatch Chest x-ray: report reviewed (Reported left perihilar and basilar infiltrate.), image reviewed Allied health notes reviewed: nursing
[2018-09-09] MEDS: LOVENOX SUB-Q SCH (22:19)
[2018-09-09] MEDS: LANTUS SUB-Q SCH (22:53)
[2018-09-10] MEDS: HumaLOG SUB-Q SCH ×6 (02:29→22:35)
[2018-09-10] MEDS: APRESOLINE PO SCH ×3 (06:01→22:35)
--- NOTE | 2018-09-10 09:04 | Progress Note ---
Assessment and Plan Acute hypoxemic respiratory failure on chronic on MVS . s/p Tracheostomy Status post cardiac arrest. Seizure disorder with breakthrough seizures. History of diabetes. History of cerebrovascular accident. Oropharyngeal dysphagia. History of seizures. Hypernatremia -Tracheostomy care, airway clearance, secretion management -Continue all current care as documented below -Adequate gas exchange -Needs better glycemic control -Aspiration precautons -Mobility and off loading for pressure ulcer prevention -Supportive transfusions, to keep HgB >7g/dL - Continue Keppra for seizures with prn ativan IV for breakthrough - Continue Stress ulcer & VTE prophylaxis - Continue bronchodilators with pulmonary hygiene per RT - Continue to wean supplemental oxygen to keep O2 sats 88-90% - Continue chronic home medications - Replete electrolytes as indicated - Avoid nephrotoxic agents, adjust all medications for CrCL - Continue enteral nutrition as tolerated - Continue accuchecks with glycemic control - Target glucose of 140-180 mg/dL - Influenza and pneumonia vaccination per protocol ....discussed with RN ....discharge planning PROGNOSIS:POOR CONDITION: POOR CODE STATUS: FULL CODE Subjective Date of service: 09/10/18 Principal diagnosis: Acute hypoxemic resp failure; S/P cardiac arrest; Seizures; DM II; H/O CVA Interval history: Patient is seen today for: Acute hypoxemic respiratory failure on chronic; Status post cardiac arrest; Seizure disorder with breakthrough seizures; History of diabetes; History of cerebrovascular accident; Oropharyngeal dysphagia; Hi story of seizures. Seen and examined at bedside; 24hour events reviewed; nursing and respiratory care staff consulted; no adverse overnight events reported to me; s/p tracheo stomy; AMS is persistent;continues to tolerate ATP trials; No emesis or overt aspiration and no seizure activity. RN at the bedside during my evaluation. No fevers documented overnight Objective Vital Signs - 12hr 09/09/18 09/09/18 09/09/18 21:14 21:16 23:37 Temperature 98.2 F Pulse Rate 79 Respiratory 20 Rate Blood Pressure 121/60 O2 Sat by Pulse 100 92 Oximetry O2 Sat by Pulse 100 Oximetry [ Assessment] 09/10/18 09/10/18 09/10/18 01:59 04:27 07:45 Temperature 99.5 F 97.9 F Pulse Rate 99 H 93 H Respiratory 22 20 Rate Blood Pressure 125/66 155/62 O2 Sat by Pulse 99 98 100 Oximetry O2 Sat by Pulse Oximetry [ Assessment] 09/10/18 09/10/18 08:00 08:38 Temperature Pulse Rate Respiratory Rate Blood Pressure O2 Sat by Pulse 100 Oximetry O2 Sat by Pulse 100 Oximetry [ Assessment] Constitutional: no acute distress, other (Elderly looking AAM, normocephalic resting in bed s/p tracheosotmy on ATP) Eyes: non-icteric, injected, other (+periorbital swelling) ENT: oropharynx moist Neck: supple, no lymphadenopathy, no JVD, other (s/p tracheostomy) Effort: normal Ascultation: Bilateral: diminished breath sounds, rhonchi Percussion: Bilateral: not dull Cardiovascular: regular rate and rhythm, other (S1,S2, no murmurs, gallops or rubs) Gastrointestinal: normoactive bowel sounds, soft, non-tender, non-distended Integumentary: normal Extremities: no cyanosis, pulses normal, no ischemia or petechiae, edema (trace ) Neurologic: unable to assess, other Psychiatric: other (unable to assess) CBC and BMP: 09/08/18 04:22 09/08/18 04:22 ABG, PT/INR, D-dimer: ABG POC ABG pH 7.464 (7.35-7.45) H 09/09/18 15:04 POC ABG pCO2 43.7 (35-45) 09/09/18 15:04 POC ABG pO2 109 (80-105) H 09/09/18 15:04 POC ABG HCO3 31.4 (22-26 mml/L) 09/09/18 15:04 POC ABG Total CO2 33 (23-27mmol/L) 09/09/18 15:04 POC ABG O2 Sat 98 09/09/18 15:04 PT/INR, D-dimer PT 16.5 Sec. (12.2-14.9) H 08/13/18 00:47 INR 1.25 (0.87-1.13) H 08/13/18 00:47 2742.50 ng/mlDDU (0-234) H 08/13/18 20:07 Abnormal lab findings: Abnormal Labs 08/12/18 08/12/18 08/12/18 21:44 21:44 21:44 WBC 15.5 H RBC 3.12 L Hgb 8.8 L Hct 28.9 L MCV MCH MCHC 31 L RDW 19.5 H Lymph % (Auto) [place] % (Auto) Eos % (Auto) Lymph # [place] # Eos # Seg Neutrophils % Lymphocytes % (Manual) 48.0 H Seg Neutrophils # Lymphocytes # (Manual) 7.4 H PT 17.8 H INR 1.37 H APTT D-Dimer Heparin Anti-Xa Level POC ABG pH POC ABG pCO2 POC ABG pO2 Sodium 159 H Potassium Chloride 118.5 H Carbon Dioxide BUN 34 H Creatinine Glucose 161 H POC Glucose Lactic Acid Calcium Magnesium AST Alkaline Phosphatase Total Creatine Kinase CK-MB (CK-2) Troponin T 0.105 H* C-Reactive Protein Total Protein Albumin Cholesterol LDL Cholesterol Direct HDL Cholesterol Free T4 Urine WBC (Auto) Urine Creatinine Urine Total Protein Crossmatch 08/13/18 08/13/18 08/13/18 00:32 00:47 00:47 WBC RBC Hgb 9.2 L Hct 29.6 L MCV MCH MCHC RDW Lymph % (Auto) [place] % (Auto) Eos % (Auto) Lymph # [place] # Eos # Seg Neutrophils % Lymphocytes % (Manual) Seg Neutrophils # Lymphocytes # (Manual) PT 16.5 H INR 1.25 H APTT 37.3 H D-Dimer Heparin Anti-Xa Level POC ABG pH POC ABG pCO2 POC ABG pO2 Sodium Potassium Chloride Carbon Dioxide BUN Creatinine Glucose POC Glucose Lactic Acid Calcium Magnesium AST Alkaline Phosphatase Total Creatine Kinase 211 H CK-MB (CK-2) 7.7 H Troponin T 0.169 H* D C-Reactive Protein Total Protein Albumin Cholesterol 46 L LDL Cholesterol Direct 17 L HDL Cholesterol 6 L Free T4 Urine WBC (Auto) Urine Creatinine Urine Total Protein Crossmatch 08/13/18 08/13/18 08/13/18 00:50 02:25 05:34 WBC RBC Hgb Hct MCV MCH MCHC RDW Lymph % (Auto) [place] % (Auto) Eos % (Auto) Lymph # [place] # Eos # Seg Neutrophils % Lymphocytes % (Manual) Seg Neutrophils # Lymphocytes # (Manual) PT INR APTT D-Dimer Heparin Anti-Xa Level POC ABG pH 7.503 H POC ABG pCO2 POC ABG pO2 253 H Sodium Potassium Chloride Carbon Dioxide BUN Creatinine Glucose POC Glucose Lactic Acid Calcium Magnesium AST Alkaline Phosphatase Total Creatine Kinase 311 H CK-MB (CK-2) 10.4 H Troponin T 0.283 H* D C-Reactive Protein Total Protein Albumin Cholesterol LDL Cholesterol Direct HDL Cholesterol Free T4 Urine WBC (Auto) > 182.0 H Urine Creatinine Urine Total Protein Crossmatch 08/13/18 08/13/18 08/13/18 06:35 10:10 10:10 WBC RBC Hgb Hct MCV MCH MCHC RDW Lymph % (Auto) [place] % (Auto) Eos % (Auto) Lymph # [place] # Eos # Seg Neutrophils % Lymphocytes % (Manual) Seg Neutrophils # Lymphocytes # (Manual) PT INR APTT D-Dimer Heparin Anti-Xa Level POC ABG pH 7.554 H POC ABG pCO2 33.5 L POC ABG pO2 220 H Sodium 158 H Potassium Chloride 117.1 H Carbon Dioxide BUN 53 H Creatinine 2.0 H Glucose 247 H POC Glucose Lactic Acid Calcium 8.2 L Magnesium AST Alkaline Phosphatase Total Creatine Kinase 309 H CK-MB (CK-2) 4.1 H Troponin T 0.470 H* D C-Reactive Protein Total Protein Albumin Cholesterol LDL Cholesterol Direct HDL Cholesterol Free T4 Urine WBC (Auto) Urine Creatinine Urine Total Protein Crossmatch 08/13/18 08/13/18 08/13/18 12:53 12:53 17:55 WBC RBC Hgb Hct MCV MCH MCHC RDW Lymph % (Auto) [place] % (Auto) Eos % (Auto) Lymph # [place] # Eos # Seg Neutrophils % Lymphocytes % (Manual) Seg Neutrophils # Lymphocytes # (Manual) PT INR APTT D-Dimer Heparin Anti-Xa Level POC ABG pH POC ABG pCO2 POC ABG pO2 Sodium Potassium Chloride Carbon Dioxide BUN Creatinine Glucose POC Glucose 308 H Lactic Acid 2.80 H* Calcium Magnesium 2.50 H AST Alkaline Phosphatase Total Creatine Kinase CK-MB (CK-2) Troponin T C-Reactive Protein 16.90 H Total Protein Albumin Cholesterol LDL Cholesterol Direct HDL Cholesterol Free T4 Urine WBC (Auto) Urine Creatinine Urine Total Protein Crossmatch 08/13/18 08/13/18 08/13/18 20:07 21:16 23:17 WBC RBC Hgb Hct MCV MCH MCHC RDW Lymph % (Auto) [place] % (Auto) Eos % (Auto) Lymph # [place] # Eos # Seg Neutrophils % Lymphocytes % (Manual) Seg Neutrophils # Lymphocytes # (Manual) PT INR APTT D-Dimer 2742.50 H Heparin Anti-Xa Level POC ABG pH 7.483 H POC ABG pCO2 30.8 L POC ABG pO2 150 H Sodium Potassium Chloride Carbon Dioxide BUN Creatinine Glucose POC Glucose 245 H Lactic Acid Calcium Magnesium AST Alkaline Phosphatase Total Creatine Kinase CK-MB (CK-2) Troponin T C-Reactive Protein Total Protein Albumin Cholesterol LDL Cholesterol Direct HDL Cholesterol Free T4 Urine WBC (Auto) Urine Creatinine Urine Total Protein Crossmatch 08/14/18 08/14/18 08/14/18 04:03 04:03 04:56 WBC 18.2 H RBC 2.62 L Hgb 7.3 L Hct 24.5 L MCV MCH MCHC RDW 18.9 H Lymph % (Auto) [place] % (Auto) Eos % (Auto) Lymph # [place] # 1.2 H Eos # Seg Neutrophils % 79.4 H Lymphocytes % (Manual) Seg Neutrophils # 14.5 H Lymphocytes # (Manual) PT INR APTT D-Dimer Heparin Anti-Xa Level POC ABG pH POC ABG pCO2 33.5 L POC ABG pO2 153 H Sodium 152 H Potassium 3.4 L Chloride 113.8 H Carbon Dioxide BUN 72 H Creatinine 2.7 H Glucose 239 H POC Glucose Lactic Acid Calcium 7.6 L Magnesium AST 50 H Alkaline Phosphatase 219 H Total Creatine Kinase CK-MB (CK-2) Troponin T 0.409 H* C-Reactive Protein Total Protein 6.2 L Albumin 1.9 L Cholesterol LDL Cholesterol Direct HDL Cholesterol Free T4 Urine WBC (Auto) Urine Creatinine Urine Total Protein Crossmatch 08/14/18 08/14/18 08/14/18 05:18 13:38 15:35 WBC RBC Hgb Hct MCV MCH MCHC RDW Lymph % (Auto) [place] % (Auto) Eos % (Auto) Lymph # [place] # Eos # Seg Neutrophils % Lymphocytes % (Manual) Seg Neutrophils # Lymphocytes # (Manual) PT INR APTT D-Dimer Heparin Anti-Xa Level POC ABG pH POC ABG pCO2 POC ABG pO2 Sodium 150 H Potassium 3.2 L Chloride 114.5 H Carbon Dioxide BUN 69 H Creatinine 2.3 H Glucose 247 H POC Glucose 242 H 296 H Lactic Acid Calcium 7.2 L Magnesium AST Alkaline Phosphatase Total Creatine Kinase CK-MB (CK-2) Troponin T C-Reactive Protein Total Protein Albumin Cholesterol LDL Cholesterol Direct HDL Cholesterol Free T4 Urine WBC (Auto) Urine Creatinine Urine Total Protein Crossmatch 08/14/18 08/14/18 08/14/18 17:01 17:20 23:47 WBC RBC Hgb Hct MCV MCH MCHC RDW Lymph % (Auto) [place] % (Auto) Eos % (Auto) Lymph # [place] # Eos # Seg Neutrophils % Lymphocytes % (Manual) Seg Neutrophils # Lymphocytes # (Manual) PT INR APTT D-Dimer Heparin Anti-Xa Level POC ABG pH POC ABG pCO2 POC ABG pO2 Sodium Potassium Chloride Carbon Dioxide BUN Creatinine Glucose POC Glucose 261 H 280 H Lactic Acid Calcium Magnesium AST Alkaline Phosphatase Total Creatine Kinase CK-MB (CK-2) Troponin T C-Reactive Protein Total Protein Albumin Cholesterol LDL Cholesterol Direct HDL Cholesterol Free T4 Urine WBC (Auto) Urine Creatinine 60.9 H Urine Total Protein 64 H Crossmatch 08/15/18 08/15/18 08/15/18 04:05 04:05 04:05 WBC RBC Hgb 6.3 L Hct 19.7 L* MCV MCH MCHC RDW Lymph % (Auto) [place] % (Auto) Eos % (Auto) Lymph # [place] # Eos # Seg Neutrophils % Lymphocytes % (Manual) Seg Neutrophils # Lymphocytes # (Manual) PT INR APTT D-Dimer Heparin Anti-Xa Level 0.17 L POC ABG pH POC ABG pCO2 POC ABG pO2 Sodium 146 H Potassium 3.0 L Chloride 110.6 H Carbon Dioxide BUN 64 H Creatinine 2.2 H Glucose 231 H POC Glucose Lactic Acid Calcium 7.1 L Magnesium AST Alkaline Phosphatase Total Creatine Kinase CK-MB (CK-2) Troponin T C-Reactive Protein Total Protein Albumin Cholesterol LDL Cholesterol Direct HDL Cholesterol Free T4 Urine WBC (Auto) Urine Creatinine Urine Total Protein Crossmatch 08/15/18 08/15/18 08/15/18 05:21 05:26 06:35 WBC RBC Hgb Hct MCV MCH MCHC RDW Lymph % (Auto) [place] % (Auto) Eos % (Auto) Lymph # [place] # Eos # Seg Neutrophils % Lymphocytes % (Manual) Seg Neutrophils # Lymphocytes # (Manual) PT INR APTT 79.0 H* D-Dimer Heparin Anti-Xa Level POC ABG pH 7.494 H POC ABG pCO2 POC ABG pO2 155 H Sodium Potassium Chloride Carbon Dioxide BUN Creatinine Glucose POC Glucose 271 H Lactic Acid Calcium Magnesium AST Alkaline Phosphatase Total Creatine Kinase CK-MB (CK-2) Troponin T C-Reactive Protein Total Protein Albumin Cholesterol LDL Cholesterol Direct HDL Cholesterol Free T4 Urine WBC (Auto) Urine Creatinine Urine Total Protein Crossmatch 08/15/18 08/15/18 08/15/18 12:10 15:31 17:27 WBC RBC Hgb Hct MCV MCH MCHC RDW Lymph % (Auto) [place] % (Auto) Eos % (Auto) Lymph # [place] # Eos # Seg Neutrophils % Lymphocytes % (Manual) Seg Neutrophils # Lymphocytes # (Manual) PT INR APTT D-Dimer Heparin Anti-Xa Level POC ABG pH POC ABG pCO2 POC ABG pO2 Sodium Potassium Chloride Carbon Dioxide BUN Creatinine Glucose POC Glucose 301 H 287 H Lactic Acid Calcium Magnesium AST Alkaline Phosphatase Total Creatine Kinase CK-MB (CK-2) Troponin T C-Reactive Protein Total Protein Albumin Cholesterol LDL Cholesterol Direct HDL Cholesterol Free T4 Urine WBC (Auto) Urine Creatinine Urine Total Protein Crossmatch See Detail 08/15/18 08/15/18 08/16/18 21:41 23:45 04:13 WBC RBC Hgb Hct MCV MCH MCHC RDW Lymph % (Auto) [place] % (Auto) Eos % (Auto) Lymph # [place] # Eos # Seg Neutrophils % Lymphocytes % (Manual) Seg Neutrophils # Lymphocytes # (Manual) PT INR APTT D-Dimer Heparin Anti-Xa Level 0.19 L POC ABG pH POC ABG pCO2 32.1 L POC ABG pO2 107 H Sodium Potassium Chloride Carbon Dioxide BUN Creatinine Glucose POC Glucose 163 H Lactic Acid Calcium Magnesium AST Alkaline Phosphatase Total Creatine Kinase CK-MB (CK-2) Troponin T C-Reactive Protein Total Protein Albumin Cholesterol LDL Cholesterol Direct HDL Cholesterol Free T4 Urine WBC (Auto) Urine Creatinine Urine Total Protein Crossmatch 08/16/18 08/16/18 08/16/18 04:50 05:28 11:30 WBC RBC 2.67 L Hgb 8.1 L Hct 23.4 L MCV MCH MCHC 35 H RDW 18.3 H Lymph % (Auto) [place] % (Auto) Eos % (Auto) Lymph # [place] # Eos # Seg Neutrophils % Lymphocytes % (Manual) Seg Neutrophils # Lymphocytes # (Manual) PT INR APTT D-Dimer Heparin Anti-Xa Level 0.19 L POC ABG pH POC ABG pCO2 POC ABG pO2 Sodium Potassium Chloride Carbon Dioxide BUN Creatinine Glucose POC Glucose 141 H Lactic Acid Calcium Magnesium AST Alkaline Phosphatase Total Creatine Kinase CK-MB (CK-2) Troponin T C-Reactive Protein Total Protein Albumin Cholesterol LDL Cholesterol Direct HDL Cholesterol Free T4 Urine WBC (Auto) Urine Creatinine Urine Total Protein Crossmatch 08/16/18 08/16/18 08/16/18 11:30 12:00 12:01 WBC RBC Hgb Hct MCV MCH MCHC RDW Lymph % (Auto) [place] % (Auto) Eos % (Auto) Lymph # [place] # Eos # Seg Neutrophils % Lymphocytes % (Manual) Seg Neutrophils # Lymphocytes # (Manual) PT INR APTT D-Dimer Heparin Anti-Xa Level 0.15 L POC ABG pH POC ABG pCO2 POC ABG pO2 Sodium Potassium Chloride 107.8 H Carbon Dioxide 21 L BUN 47 H Creatinine 1.6 H Glucose 221 H POC Glucose 267 H Lactic Acid Calcium 6.9 L Magnesium AST Alkaline Phosphatase Total Creatine Kinase CK-MB (CK-2) Troponin T C-Reactive Protein Total Protein Albumin Cholesterol LDL Cholesterol Direct HDL Cholesterol Free T4 Urine WBC (Auto) Urine Creatinine Urine Total Protein Crossmatch 08/16/18 08/16/18 08/16/18 17:23 20:01 23:13 WBC RBC Hgb Hct MCV MCH MCHC RDW Lymph % (Auto) [place] % (Auto) Eos % (Auto) Lymph # [place] # Eos # Seg Neutrophils % Lymphocytes % (Manual) Seg Neutrophils # Lymphocytes # (Manual) PT INR APTT D-Dimer Heparin Anti-Xa Level 0.26 L POC ABG pH POC ABG pCO2 POC ABG pO2 Sodium Potassium Chloride Carbon Dioxide BUN Creatinine Glucose POC Glucose 245 H 256 H Lactic Acid Calcium Magnesium AST Alkaline Phosphatase Total Creatine Kinase CK-MB (CK-2) Troponin T C-Reactive Protein Total Protein Albumin Cholesterol LDL Cholesterol Direct HDL Cholesterol Free T4 Urine WBC (Auto) Urine Creatinine Urine Total Protein Crossmatch 08/17/18 08/17/18 08/17/18 04:29 04:55 05:34 WBC RBC Hgb 8.2 L Hct 24.3 L MCV MCH MCHC RDW Lymph % (Auto) [place] % (Auto) Eos % (Auto) Lymph # [place] # Eos # Seg Neutrophils % Lymphocytes % (Manual) Seg Neutrophils # Lymphocytes # (Manual) PT INR APTT D-Dimer Heparin Anti-Xa Level POC ABG pH POC ABG pCO2 32.4 L POC ABG pO2 108 H Sodium Potassium Chloride Carbon Dioxide BUN Creatinine Glucose POC Glucose 268 H Lactic Acid Calcium Magnesium AST Alkaline Phosphatase Total Creatine Kinase CK-MB (CK-2) Troponin T C-Reactive Protein Total Protein Albumin Cholesterol LDL Cholesterol Direct HDL Cholesterol Free T4 Urine WBC (Auto) Urine Creatinine Urine Total Protein Crossmatch 08/17/18 08/17/18 08/17/18 11:54 13:44 17:24 WBC RBC Hgb Hct MCV MCH MCHC RDW Lymph % (Auto) [place] % (Auto) Eos % (Auto) Lymph # [place] # Eos # Seg Neutrophils % Lymphocytes % (Manual) Seg Neutrophils # Lymphocytes # (Manual) PT INR APTT D-Dimer Heparin Anti-Xa Level POC ABG pH POC ABG pCO2 32.7 L POC ABG pO2 142 H Sodium Potassium Chloride Carbon Dioxide BUN Creatinine Glucose POC Glucose 295 H 283 H Lactic Acid Calcium Magnesium AST Alkaline Phosphatase Total Creatine Kinase CK-MB (CK-2) Troponin T C-Reactive Protein Total Protein Albumin Cholesterol LDL Cholesterol Direct HDL Cholesterol Free T4 Urine WBC (Auto) Urine Creatinine Urine Total Protein Crossmatch 08/18/18 08/18/18 08/18/18 00:05 00:59 04:15 WBC RBC Hgb Hct MCV MCH MCHC RDW Lymph % (Auto) [place] % (Auto) Eos % (Auto) Lymph # [place] # Eos # Seg Neutrophils % Lymphocytes % (Manual) Seg Neutrophils # Lymphocytes # (Manual) PT INR APTT D-Dimer Heparin Anti-Xa Level POC ABG pH POC ABG pCO2 POC ABG pO2 115 H Sodium Potassium Chloride Carbon Dioxide BUN Creatinine Glucose POC Glucose 247 H 251 H Lactic Acid Calcium Magnesium AST Alkaline Phosphatase Total Creatine Kinase CK-MB (CK-2) Troponin T C-Reactive Protein Total Protein Albumin Cholesterol LDL Cholesterol Direct HDL Cholesterol Free T4 Urine WBC (Auto) Urine Creatinine Urine Total Protein Crossmatch 08/18/18 08/18/18 08/18/18 05:02 12:20 17:51 WBC RBC Hgb Hct MCV MCH MCHC RDW Lymph % (Auto) [place] % (Auto) Eos % (Auto) Lymph # [place] # Eos # Seg Neutrophils % Lymphocytes % (Manual) Seg Neutrophils # Lymphocytes # (Manual) PT INR APTT D-Dimer Heparin Anti-Xa Level POC ABG pH POC ABG pCO2 POC ABG pO2 Sodium Potassium Chloride Carbon Dioxide BUN Creatinine Glucose POC Glucose 282 H 209 H 261 H Lactic Acid Calcium Magnesium AST Alkaline Phosphatase Total Creatine Kinase CK-MB (CK-2) Troponin T C-Reactive Protein Total Protein Albumin Cholesterol LDL Cholesterol Direct HDL Cholesterol Free T4 Urine WBC (Auto) Urine Creatinine Urine Total Protein Crossmatch 08/18/18 08/19/18 08/19/18 23:30 04:54 05:16 WBC RBC 2.62 L Hgb 7.5 L Hct 23.1 L MCV MCH MCHC RDW 18.1 H Lymph % (Auto) [place] % (Auto) Eos % (Auto) Lymph # [place] # Eos # Seg Neutrophils % Lymphocytes % (Manual) Seg Neutrophils # Lymphocytes # (Manual) PT INR APTT D-Dimer Heparin Anti-Xa Level POC ABG pH POC ABG pCO2 POC ABG pO2 58 L Sodium Potassium Chloride Carbon Dioxide BUN Creatinine Glucose POC Glucose 231 H Lactic Acid Calcium Magnesium AST Alkaline Phosphatase Total Creatine Kinase CK-MB (CK-2) Troponin T C-Reactive Protein Total Protein Albumin Cholesterol LDL Cholesterol Direct HDL Cholesterol Free T4 Urine WBC (Auto) Urine Creatinine Urine Total Protein Crossmatch 08/19/18 08/19/18 08/19/18 05:16 05:40 11:56 WBC RBC Hgb Hct MCV MCH MCHC RDW Lymph % (Auto) [place] % (Auto) Eos % (Auto) Lymph # [place] # Eos # Seg Neutrophils % Lymphocytes % (Manual) Seg Neutrophils # Lymphocytes # (Manual) PT INR APTT D-Dimer Heparin Anti-Xa Level POC ABG pH POC ABG pCO2 POC ABG pO2 Sodium 152 H D Potassium Chloride 118.7 H Carbon Dioxide BUN 38 H Creatinine Glucose 220 H POC Glucose 227 H 213 H Lactic Acid Calcium 8.1 L D Magnesium AST Alkaline Phosphatase Total Creatine Kinase CK-MB (CK-2) Troponin T C-Reactive Protein Total Protein Albumin Cholesterol LDL Cholesterol Direct HDL Cholesterol Free T4 Urine WBC (Auto) Urine Creatinine Urine Total Protein Crossmatch 08/19/18 08/19/18 08/20/18 18:37 23:32 04:38 WBC RBC Hgb Hct MCV MCH MCHC RDW Lymph % (Auto) [place] % (Auto) Eos % (Auto) Lymph # [place] # Eos # Seg Neutrophils % Lymphocytes % (Manual) Seg Neutrophils # Lymphocytes # (Manual) PT INR APTT D-Dimer Heparin Anti-Xa Level POC ABG pH POC ABG pCO2 POC ABG pO2 140 H Sodium Potassium Chloride Carbon Dioxide BUN Creatinine Glucose POC Glucose 227 H 245 H Lactic Acid Calcium Magnesium AST Alkaline Phosphatase Total Creatine Kinase CK-MB (CK-2) Troponin T C-Reactive Protein Total Protein Albumin Cholesterol LDL Cholesterol Direct HDL Cholesterol Free T4 Urine WBC (Auto) Urine Creatinine Urine Total Protein Crossmatch 08/20/18 08/20/18 08/20/18 05:31 05:37 05:37 WBC RBC 2.60 L Hgb 7.5 L Hct 22.9 L MCV MCH MCHC RDW 18.4 H Lymph % (Auto) [place] % (Auto) Eos % (Auto) Lymph # [place] # Eos # Seg Neutrophils % Lymphocytes % (Manual) Seg Neutrophils # Lymphocytes # (Manual) PT INR APTT D-Dimer Heparin Anti-Xa Level POC ABG pH POC ABG pCO2 POC ABG pO2 Sodium 150 H Potassium Chloride 115.6 H Carbon Dioxide BUN 38 H Creatinine Glucose 276 H POC Glucose 266 H Lactic Acid Calcium 7.9 L Magnesium AST Alkaline Phosphatase Total Creatine Kinase CK-MB (CK-2) Troponin T C-Reactive Protein Total Protein Albumin Cholesterol LDL Cholesterol Direct HDL Cholesterol Free T4 Urine WBC (Auto) Urine Creatinine Urine Total Protein Crossmatch 08/20/18 08/20/18 08/20/18 14:01 18:20 23:11 WBC RBC Hgb Hct MCV MCH MCHC RDW Lymph % (Auto) [place] % (Auto) Eos % (Auto) Lymph # [place] # Eos # Seg Neutrophils % Lymphocytes % (Manual) Seg Neutrophils # Lymphocytes # (Manual) PT INR APTT D-Dimer Heparin Anti-Xa Level POC ABG pH POC ABG pCO2 POC ABG pO2 Sodium Potassium Chloride Carbon Dioxide BUN Creatinine Glucose POC Glucose 305 H 271 H 218 H Lactic Acid Calcium Magnesium AST Alkaline Phosphatase Total Creatine Kinase CK-MB (CK-2) Troponin T C-Reactive Protein Total Protein Albumin Cholesterol LDL Cholesterol Direct HDL Cholesterol Free T4 Urine WBC (Auto) Urine Creatinine Urine Total Protein Crossmatch 08/21/18 08/21/18 08/21/18 04:41 04:41 06:20 WBC RBC 2.65 L Hgb 7.6 L Hct 23.3 L MCV MCH MCHC RDW 19.1 H Lymph % (Auto) [place] % (Auto) Eos % (Auto) Lymph # [place] # Eos # Seg Neutrophils % Lymphocytes % (Manual) Seg Neutrophils # Lymphocytes # (Manual) PT INR APTT D-Dimer Heparin Anti-Xa Level POC ABG pH POC ABG pCO2 POC ABG pO2 Sodium 150 H Potassium Chloride 117.8 H Carbon Dioxide BUN 37 H Creatinine Glucose 233 H POC Glucose 262 H Lactic Acid Calcium 7.9 L Magnesium AST Alkaline Phosphatase Total Creatine Kinase CK-MB (CK-2) Troponin T C-Reactive Protein Total Protein Albumin Cholesterol LDL Cholesterol Direct HDL Cholesterol Free T4 Urine WBC (Auto) Urine Creatinine Urine Total Protein Crossmatch 08/21/18 08/21/18 08/21/18 10:18 12:04 12:36 WBC RBC Hgb Hct MCV MCH MCHC RDW Lymph % (Auto) [place] % (Auto) Eos % (Auto) Lymph # [place] # Eos # Seg Neutrophils % Lymphocytes % (Manual) Seg Neutrophils # Lymphocytes # (Manual) PT INR APTT D-Dimer Heparin Anti-Xa Level POC ABG pH POC ABG pCO2 POC ABG pO2 Sodium Potassium Chloride Carbon Dioxide BUN Creatinine Glucose POC Glucose 256 H 245 H 255 H Lactic Acid Calcium Magnesium AST Alkaline Phosphatase Total Creatine Kinase CK-MB (CK-2) Troponin T C-Reactive Protein Total Protein Albumin Cholesterol LDL Cholesterol Direct HDL Cholesterol Free T4 Urine WBC (Auto) Urine Creatinine Urine Total Protein Crossmatch 08/21/18 08/21/18 08/22/18 17:36 23:29 05:01 WBC RBC Hgb Hct MCV MCH MCHC RDW Lymph % (Auto) [place] % (Auto) Eos % (Auto) Lymph # [place] # Eos # Seg Neutrophils % Lymphocytes % (Manual) Seg Neutrophils # Lymphocytes # (Manual) PT INR APTT D-Dimer Heparin Anti-Xa Level POC ABG pH 7.466 H POC ABG pCO2 33.8 L POC ABG pO2 111 H Sodium Potassium Chloride Carbon Dioxide BUN Creatinine Glucose POC Glucose 263 H 268 H Lactic Acid Calcium Magnesium AST Alkaline Phosphatase Total Creatine Kinase CK-MB (CK-2) Troponin T C-Reactive Protein Total Protein Albumin Cholesterol LDL Cholesterol Direct HDL Cholesterol Free T4 Urine WBC (Auto) Urine Creatinine Urine Total Protein Crossmatch 08/22/18 08/22/18 08/22/18 05:05 12:05 12:15 WBC RBC Hgb Hct MCV MCH MCHC RDW Lymph % (Auto) [place] % (Auto) Eos % (Auto) Lymph # [place] # Eos # Seg Neutrophils % Lymphocytes % (Manual) Seg Neutrophils # Lymphocytes # (Manual) PT INR APTT D-Dimer Heparin Anti-Xa Level POC ABG pH POC ABG pCO2 POC ABG pO2 Sodium 147 H Potassium Chloride 113.2 H Carbon Dioxide BUN 36 H Creatinine Glucose 249 H POC Glucose 256 H 228 H Lactic Acid Calcium 8.2 L Magnesium AST Alkaline Phosphatase Total Creatine Kinase CK-MB (CK-2) Troponin T C-Reactive Protein Total Protein Albumin Cholesterol LDL Cholesterol Direct HDL Cholesterol Free T4 Urine WBC (Auto) Urine Creatinine Urine Total Protein Crossmatch 08/22/18 08/23/18 08/23/18 17:30 00:03 05:05 WBC RBC Hgb Hct MCV MCH MCHC RDW Lymph % (Auto) [place] % (Auto) Eos % (Auto) Lymph # [place] # Eos # Seg Neutrophils % Lymphocytes % (Manual) Seg Neutrophils # Lymphocytes # (Manual) PT INR APTT D-Dimer Heparin Anti-Xa Level POC ABG pH POC ABG pCO2 POC ABG pO2 Sodium Potassium Chloride Carbon Dioxide BUN Creatinine Glucose POC Glucose 291 H 259 H 247 H Lactic Acid Calcium Magnesium AST Alkaline Phosphatase Total Creatine Kinase CK-MB (CK-2) Troponin T C-Reactive Protein Total Protein Albumin Cholesterol LDL Cholesterol Direct HDL Cholesterol Free T4 Urine WBC (Auto) Urine Creatinine Urine Total Protein Crossmatch 08/23/18 08/23/18 08/23/18 05:14 12:29 17:21 WBC RBC Hgb Hct MCV MCH MCHC RDW Lymph % (Auto) [place] % (Auto) Eos % (Auto) Lymph # [place] # Eos # Seg Neutrophils % Lymphocytes % (Manual) Seg Neutrophils # Lymphocytes # (Manual) PT INR APTT D-Dimer Heparin Anti-Xa Level POC ABG pH POC ABG pCO2 POC ABG pO2 Sodium Potassium Chloride Carbon Dioxide BUN Creatinine Glucose POC Glucose 208 H 138 H 175 H Lactic Acid Calcium Magnesium AST Alkaline Phosphatase Total Creatine Kinase CK-MB (CK-2) Troponin T C-Reactive Protein Total Protein Albumin Cholesterol LDL Cholesterol Direct HDL Cholesterol Free T4 Urine WBC (Auto) Urine Creatinine Urine Total Protein Crossmatch 08/23/18 08/24/18 08/24/18 23:36 01:00 05:50 WBC RBC 2.92 L 2.90 L Hgb 8.3 L 8.2 L Hct 25.4 L 25.2 L MCV MCH MCHC RDW 18.9 H 18.6 H Lymph % (Auto) [place] % (Auto) 9.2 H Eos % (Auto) Lymph # [place] # Eos # Seg Neutrophils % Lymphocytes % (Manual) Seg Neutrophils # Lymphocytes # (Manual) PT INR APTT D-Dimer Heparin Anti-Xa Level POC ABG pH POC ABG pCO2 POC ABG pO2 Sodium Potassium Chloride Carbon Dioxide BUN Creatinine Glucose POC Glucose 163 H Lactic Acid Calcium Magnesium AST Alkaline Phosphatase Total Creatine Kinase CK-MB (CK-2) Troponin T C-Reactive Protein Total Protein Albumin Cholesterol LDL Cholesterol Direct HDL Cholesterol Free T4 Urine WBC (Auto) Urine Creatinine Urine Total Protein Crossmatch 08/24/18 08/24/18 08/24/18 05:50 12:26 18:37 WBC RBC Hgb Hct MCV MCH MCHC RDW Lymph % (Auto) [place] % (Auto) Eos % (Auto) Lymph # [place] # Eos # Seg Neutrophils % Lymphocytes % (Manual) Seg Neutrophils # Lymphocytes # (Manual) PT INR APTT D-Dimer Heparin Anti-Xa Level POC ABG pH POC ABG pCO2 POC ABG pO2 Sodium 147 H Potassium Chloride 113.6 H Carbon Dioxide BUN 33 H Creatinine Glucose 210 H POC Glucose 223 H 166 H Lactic Acid Calcium 8.3 L Magnesium AST Alkaline Phosphatase Total Creatine Kinase CK-MB (CK-2) Troponin T C-Reactive Protein Total Protein Albumin Cholesterol LDL Cholesterol Direct HDL Cholesterol Free T4 Urine WBC (Auto) Urine Creatinine Urine Total Protein Crossmatch 08/24/18 08/25/18 08/25/18 23:47 04:55 04:55 WBC RBC 2.94 L Hgb 8.4 L Hct 25.1 L MCV MCH MCHC RDW 18.2 H Lymph % (Auto) [place] % (Auto) Eos % (Auto) Lymph # [place] # Eos # Seg Neutrophils % Lymphocytes % (Manual) Seg Neutrophils # Lymphocytes # (Manual) PT INR APTT D-Dimer Heparin Anti-Xa Level POC ABG pH POC ABG pCO2 POC ABG pO2 Sodium Potassium Chloride 110.2 H Carbon Dioxide BUN 30 H Creatinine Glucose POC Glucose 126 H Lactic Acid Calcium 8.1 L Magnesium AST Alkaline Phosphatase Total Creatine Kinase CK-MB (CK-2) Troponin T C-Reactive Protein Total Protein Albumin Cholesterol LDL Cholesterol Direct HDL Cholesterol Free T4 Urine WBC (Auto) Urine Creatinine Urine Total Protein Crossmatch 08/25/18 08/26/18 08/26/18 12:40 04:39 04:39 WBC RBC 2.96 L Hgb 8.3 L Hct 25.7 L MCV MCH MCHC RDW 18.2 H Lymph % (Auto) 10.5 L [place] % (Auto) 9.3 H Eos % (Auto) Lymph # 0.8 L [place] # Eos # Seg Neutrophils % 77.0 H Lymphocytes % (Manual) Seg Neutrophils # Lymphocytes # (Manual) PT INR APTT D-Dimer Heparin Anti-Xa Level POC ABG pH POC ABG pCO2 POC ABG pO2 Sodium 147 H Potassium Chloride 113.5 H Carbon Dioxide BUN 27 H Creatinine 0.7 L Glucose 106 H POC Glucose Lactic Acid Calcium 8.0 L Magnesium AST Alkaline Phosphatase Total Creatine Kinase CK-MB (CK-2) Troponin T C-Reactive Protein Total Protein Albumin Cholesterol LDL Cholesterol Direct HDL Cholesterol Free T4 Urine WBC (Auto) > 182.0 H Urine Creatinine Urine Total Protein Crossmatch 08/26/18 08/26/18 08/26/18 05:27 09:00 09:54 WBC RBC Hgb Hct MCV MCH MCHC RDW Lymph % (Auto) [place] % (Auto) Eos % (Auto) Lymph # [place] # Eos # Seg Neutrophils % Lymphocytes % (Manual) Seg Neutrophils # Lymphocytes # (Manual) PT INR APTT D-Dimer Heparin Anti-Xa Level POC ABG pH POC ABG pCO2 POC ABG pO2 Sodium Potassium Chloride Carbon Dioxide BUN Creatinine Glucose POC Glucose 120 H 170 H Lactic Acid Calcium Magnesium AST Alkaline Phosphatase Total Creatine Kinase CK-MB (CK-2) Troponin T C-Reactive Protein Total Protein Albumin Cholesterol LDL Cholesterol Direct HDL Cholesterol Free T4 0.51 L Urine WBC (Auto) Urine Creatinine Urine Total Protein Crossmatch 08/26/18 08/26/18 08/27/18 14:52 17:50 06:30 WBC RBC Hgb Hct MCV MCH MCHC RDW Lymph % (Auto) [place] % (Auto) Eos % (Auto) Lymph # [place] # Eos # Seg Neutrophils % Lymphocytes % (Manual) Seg Neutrophils # Lymphocytes # (Manual) PT INR APTT D-Dimer Heparin Anti-Xa Level POC ABG pH POC ABG pCO2 POC ABG pO2 Sodium 150 H Potassium Chloride 114.8 H Carbon Dioxide BUN 24 H Creatinine 0.7 L Glucose 131 H POC Glucose 166 H 107 H Lactic Acid Calcium 7.8 L Magnesium AST Alkaline Phosphatase Total Creatine Kinase CK-MB (CK-2) Troponin T C-Reactive Protein Total Protein Albumin Cholesterol LDL Cholesterol Direct HDL Cholesterol Free T4 Urine WBC (Auto) Urine Creatinine Urine Total Protein Crossmatch 08/27/18 08/27/18 08/27/18 08:22 14:20 16:06 WBC RBC Hgb Hct MCV MCH MCHC RDW Lymph % (Auto) [place] % (Auto) Eos % (Auto) Lymph # [place] # Eos # Seg Neutrophils % Lymphocytes % (Manual) Seg Neutrophils # Lymphocytes # (Manual) PT INR APTT D-Dimer Heparin Anti-Xa Level POC ABG pH POC ABG pCO2 POC ABG pO2 Sodium Potassium Chloride Carbon Dioxide BUN Creatinine Glucose POC Glucose 112 H 151 H 158 H Lactic Acid Calcium Magnesium AST Alkaline Phosphatase Total Creatine Kinase CK-MB (CK-2) Troponin T C-Reactive Protein Total Protein Albumin Cholesterol LDL Cholesterol Direct HDL Cholesterol Free T4 Urine WBC (Auto) Urine Creatinine Urine Total Protein Crossmatch 08/27/18 08/27/18 08/28/18 20:09 21:25 02:03 WBC RBC Hgb Hct MCV MCH MCHC RDW Lymph % (Auto) [place] % (Auto) Eos % (Auto) Lymph # [place] # Eos # Seg Neutrophils % Lymphocytes % (Manual) Seg Neutrophils # Lymphocytes # (Manual) PT INR APTT D-Dimer Heparin Anti-Xa Level POC ABG pH POC ABG pCO2 POC ABG pO2 130 H Sodium Potassium Chloride Carbon Dioxide BUN Creatinine Glucose POC Glucose 226 H 250 H Lactic Acid Calcium Magnesium AST Alkaline Phosphatase Total Creatine Kinase CK-MB (CK-2) Troponin T C-Reactive Protein Total Protein Albumin Cholesterol LDL Cholesterol Direct HDL Cholesterol Free T4 Urine WBC (Auto) Urine Creatinine Urine Total Protein Crossmatch 08/28/18 08/28/18 08/28/18 05:56 07:15 13:17 WBC RBC Hgb Hct MCV MCH MCHC RDW Lymph % (Auto) [place] % (Auto) Eos % (Auto) Lymph # [place] # Eos # Seg Neutrophils % Lymphocytes % (Manual) Seg Neutrophils # Lymphocytes # (Manual) PT INR APTT D-Dimer Heparin Anti-Xa Level POC ABG pH POC ABG pCO2 POC ABG pO2 Sodium Potassium Chloride Carbon Dioxide BUN Creatinine Glucose 198 H POC Glucose 221 H 188 H Lactic Acid Calcium 7.7 L Magnesium AST Alkaline Phosphatase Total Creatine Kinase CK-MB (CK-2) Troponin T C-Reactive Protein Total Protein Albumin Cholesterol LDL Cholesterol Direct HDL Cholesterol Free T4 Urine WBC (Auto) Urine Creatinine Urine Total Protein Crossmatch 08/28/18 08/28/18 08/28/18 15:53 18:12 22:35 WBC RBC Hgb Hct MCV MCH MCHC RDW Lymph % (Auto) [place] % (Auto) Eos % (Auto) Lymph # [place] # Eos # Seg Neutrophils % Lymphocytes % (Manual) Seg Neutrophils # Lymphocytes # (Manual) PT INR APTT D-Dimer Heparin Anti-Xa Level POC ABG pH 7.457 H POC ABG pCO2 POC ABG pO2 Sodium Potassium Chloride Carbon Dioxide BUN Creatinine Glucose POC Glucose 197 H 225 H Lactic Acid Calcium Magnesium AST Alkaline Phosphatase Total Creatine Kinase CK-MB (CK-2) Troponin T C-Reactive Protein Total Protein Albumin Cholesterol LDL Cholesterol Direct HDL Cholesterol Free T4 Urine WBC (Auto) Urine Creatinine Urine Total Protein Crossmatch 08/29/18 08/29/18 08/29/18 03:04 10:47 14:25 WBC RBC Hgb Hct MCV MCH MCHC RDW Lymph % (Auto) [place] % (Auto) Eos % (Auto) Lymph # [place] # Eos # Seg Neutrophils % Lymphocytes % (Manual) Seg Neutrophils # Lymphocytes # (Manual) PT INR APTT D-Dimer Heparin Anti-Xa Level POC ABG pH POC ABG pCO2 POC ABG pO2 Sodium Potassium Chloride Carbon Dioxide BUN Creatinine Glucose POC Glucose 223 H 371 H 266 H Lactic Acid Calcium Magnesium AST Alkaline Phosphatase Total Creatine Kinase CK-MB (CK-2) Troponin T C-Reactive Protein Total Protein Albumin Cholesterol LDL Cholesterol Direct HDL Cholesterol Free T4 Urine WBC (Auto) Urine Creatinine Urine Total Protein Crossmatch 08/29/18 08/29/18 08/29/18 16:45 17:36 21:33 WBC RBC Hgb Hct MCV MCH MCHC RDW Lymph % (Auto) [place] % (Auto) Eos % (Auto) Lymph # [place] # Eos # Seg Neutrophils % Lymphocytes % (Manual) Seg Neutrophils # Lymphocytes # (Manual) PT INR APTT D-Dimer Heparin Anti-Xa Level POC ABG pH POC ABG pCO2 POC ABG pO2 118 H Sodium Potassium Chloride Carbon Dioxide BUN Creatinine Glucose POC Glucose 253 H 204 H Lactic Acid Calcium Magnesium AST Alkaline Phosphatase Total Creatine Kinase CK-MB (CK-2) Troponin T C-Reactive Protein Total Protein Albumin Cholesterol LDL Cholesterol Direct HDL Cholesterol Free T4 Urine WBC (Auto) Urine Creatinine Urine Total Protein Crossmatch 08/30/18 08/30/18 08/30/18 01:33 05:27 05:40 WBC RBC 3.12 L Hgb 8.5 L Hct 25.9 L MCV 83 L MCH 27 L MCHC RDW 18.3 H Lymph % (Auto) [place] % (Auto) 7.8 H Eos % (Auto) 8.8 H Lymph # [place] # Eos # 0.6 H Seg Neutrophils % Lymphocytes % (Manual) Seg Neutrophils # Lymphocytes # (Manual) PT INR APTT D-Dimer Heparin Anti-Xa Level POC ABG pH POC ABG pCO2 POC ABG pO2 Sodium Potassium Chloride Carbon Dioxide BUN Creatinine Glucose POC Glucose 157 H 178 H Lactic Acid Calcium Magnesium AST Alkaline Phosphatase Total Creatine Kinase CK-MB (CK-2) Troponin T C-Reactive Protein Total Protein Albumin Cholesterol LDL Cholesterol Direct HDL Cholesterol Free T4 Urine WBC (Auto) Urine Creatinine Urine Total Protein Crossmatch 08/30/18 08/30/18 08/30/18 05:40 09:28 11:41 WBC RBC Hgb Hct MCV MCH MCHC RDW Lymph % (Auto) [place] % (Auto) Eos % (Auto) Lymph # [place] # Eos # Seg Neutrophils % Lymphocytes % (Manual) Seg Neutrophils # Lymphocytes # (Manual) PT INR APTT D-Dimer Heparin Anti-Xa Level POC ABG pH POC ABG pCO2 POC ABG pO2 Sodium Potassium Chloride Carbon Dioxide BUN Creatinine 0.7 L Glucose 189 H POC Glucose 216 H 257 H Lactic Acid Calcium 8.2 L Magnesium AST 50 H Alkaline Phosphatase 158 H Total Creatine Kinase CK-MB (CK-2) Troponin T C-Reactive Protein Total Protein Albumin 1.6 L Cholesterol LDL Cholesterol Direct HDL Cholesterol Free T4 Urine WBC (Auto) Urine Creatinine Urine Total Protein Crossmatch 08/30/18 08/30/18 08/30/18 14:34 17:07 21:56 WBC RBC Hgb Hct MCV MCH MCHC RDW Lymph % (Auto) [place] % (Auto) Eos % (Auto) Lymph # [place] # Eos # Seg Neutrophils % Lymphocytes % (Manual) Seg Neutrophils # Lymphocytes # (Manual) PT INR APTT D-Dimer Heparin Anti-Xa Level POC ABG pH POC ABG pCO2 POC ABG pO2 Sodium Potassium Chloride Carbon Dioxide BUN Creatinine Glucose POC Glucose 263 H 263 H 234 H Lactic Acid Calcium Magnesium AST Alkaline Phosphatase Total Creatine Kinase CK-MB (CK-2) Troponin T C-Reactive Protein Total Protein Albumin Cholesterol LDL Cholesterol Direct HDL Cholesterol Free T4 Urine WBC (Auto) Urine Creatinine Urine Total Protein Crossmatch 08/31/18 08/31/18 08/31/18 02:02 05:29 09:24 WBC RBC Hgb Hct MCV MCH MCHC RDW Lymph % (Auto) [place] % (Auto) Eos % (Auto) Lymph # [place] # Eos # Seg Neutrophils % Lymphocytes % (Manual) Seg Neutrophils # Lymphocytes # (Manual) PT INR APTT D-Dimer Heparin Anti-Xa Level POC ABG pH POC ABG pCO2 POC ABG pO2 Sodium Potassium Chloride Carbon Dioxide BUN Creatinine Glucose POC Glucose 151 H 156 H 107 H Lactic Acid Calcium Magnesium AST Alkaline Phosphatase Total Creatine Kinase CK-MB (CK-2) Troponin T C-Reactive Protein Total Protein Albumin Cholesterol LDL Cholesterol Direct HDL Cholesterol Free T4 Urine WBC (Auto) Urine Creatinine Urine Total Protein Crossmatch 08/31/18 08/31/18 08/31/18 13:51 17:28 21:40 WBC RBC Hgb Hct MCV MCH MCHC RDW Lymph % (Auto) [place] % (Auto) Eos % (Auto) Lymph # [place] # Eos # Seg Neutrophils % Lymphocytes % (Manual) Seg Neutrophils # Lymphocytes # (Manual) PT INR APTT D-Dimer Heparin Anti-Xa Level POC ABG pH POC ABG pCO2 POC ABG pO2 Sodium Potassium Chloride Carbon Dioxide BUN Creatinine Glucose POC Glucose 170 H 239 H 209 H Lactic Acid Calcium Magnesium AST Alkaline Phosphatase Total Creatine Kinase CK-MB (CK-2) Troponin T C-Reactive Protein Total Protein Albumin Cholesterol LDL Cholesterol Direct HDL Cholesterol Free T4 Urine WBC (Auto) Urine Creatinine Urine Total Protein Crossmatch 08/31/18 08/31/18 09/01/18 22:25 22:25 01:47 WBC RBC Hgb Hct MCV MCH MCHC RDW Lymph % (Auto) [place] % (Auto) Eos % (Auto) Lymph # [place] # Eos # Seg Neutrophils % Lymphocytes % (Manual) Seg Neutrophils # Lymphocytes # (Manual) PT INR APTT D-Dimer Heparin Anti-Xa Level POC ABG pH POC ABG pCO2 45.6 H POC ABG pO2 135 H Sodium Potassium Chloride Carbon Dioxide BUN Creatinine Glucose POC Glucose 208 H 223 H Lactic Acid Calcium Magnesium AST Alkaline Phosphatase Total Creatine Kinase CK-MB (CK-2) Troponin T C-Reactive Protein Total Protein Albumin Cholesterol LDL Cholesterol Direct HDL Cholesterol Free T4 Urine WBC (Auto) Urine Creatinine Urine Total Protein Crossmatch 09/01/18 09/01/18 09/01/18 05:18 05:19 05:19 WBC RBC 3.08 L Hgb 8.5 L Hct 25.6 L MCV 83 L MCH MCHC RDW 18.7 H Lymph % (Auto) [place] % (Auto) 7.9 H Eos % (Auto) 6.1 H Lymph # [place] # Eos # Seg Neutrophils % Lymphocytes % (Manual) Seg Neutrophils # Lymphocytes # (Manual) PT INR APTT D-Dimer Heparin Anti-Xa Level POC ABG pH POC ABG pCO2 POC ABG pO2 Sodium Potassium Chloride 107.9 H Carbon Dioxide BUN 21 H Creatinine 0.7 L Glucose 188 H POC Glucose 236 H Lactic Acid Calcium Magnesium AST Alkaline Phosphatase Total Creatine Kinase CK-MB (CK-2) Troponin T C-Reactive Protein Total Protein Albumin Cholesterol LDL Cholesterol Direct HDL Cholesterol Free T4 Urine WBC (Auto) Urine Creatinine Urine Total Protein Crossmatch 09/01/18 09/01/18 09/01/18 09:29 14:25 18:20 WBC RBC Hgb Hct MCV MCH MCHC RDW Lymph % (Auto) [place] % (Auto) Eos % (Auto) Lymph # [place] # Eos # Seg Neutrophils % Lymphocytes % (Manual) Seg Neutrophils # Lymphocytes # (Manual) PT INR APTT D-Dimer Heparin Anti-Xa Level POC ABG pH POC ABG pCO2 POC ABG pO2 Sodium Potassium Chloride Carbon Dioxide BUN Creatinine Glucose POC Glucose 231 H 294 H 215 H Lactic Acid Calcium Magnesium AST Alkaline Phosphatase Total Creatine Kinase CK-MB (CK-2) Troponin T C-Reactive Protein Total Protein Albumin Cholesterol LDL Cholesterol Direct HDL Cholesterol Free T4 Urine WBC (Auto) Urine Creatinine Urine Total Protein Crossmatch 09/01/18 09/02/18 09/02/18 21:21 03:28 05:25 WBC RBC Hgb Hct MCV MCH MCHC RDW Lymph % (Auto) [place] % (Auto) Eos % (Auto) Lymph # [place] # Eos # Seg Neutrophils % Lymphocytes % (Manual) Seg Neutrophils # Lymphocytes # (Manual) PT INR APTT D-Dimer Heparin Anti-Xa Level POC ABG pH POC ABG pCO2 POC ABG pO2 Sodium Potassium Chloride Carbon Dioxide BUN Creatinine Glucose POC Glucose 236 H 194 H 183 H Lactic Acid Calcium Magnesium AST Alkaline Phosphatase Total Creatine Kinase CK-MB (CK-2) Troponin T C-Reactive Protein Total Protein Albumin Cholesterol LDL Cholesterol Direct HDL Cholesterol Free T4 Urine WBC (Auto) Urine Creatinine Urine Total Protein Crossmatch 09/02/18 09/02/18 09/02/18 09:16 15:30 17:20 WBC RBC Hgb Hct MCV MCH MCHC RDW Lymph % (Auto) [place] % (Auto) Eos % (Auto) Lymph # [place] # Eos # Seg Neutrophils % Lymphocytes % (Manual) Seg Neutrophils # Lymphocytes # (Manual) PT INR APTT D-Dimer Heparin Anti-Xa Level POC ABG pH POC ABG pCO2 POC ABG pO2 Sodium Potassium Chloride Carbon Dioxide BUN Creatinine Glucose POC Glucose 251 H 303 H 316 H Lactic Acid Calcium Magnesium AST Alkaline Phosphatase Total Creatine Kinase CK-MB (CK-2) Troponin T C-Reactive Protein Total Protein Albumin Cholesterol LDL Cholesterol Direct HDL Cholesterol Free T4 Urine WBC (Auto) Urine Creatinine Urine Total Protein Crossmatch 09/02/18 09/03/18 09/03/18 21:25 03:32 05:20 WBC RBC Hgb Hct MCV MCH MCHC RDW Lymph % (Auto) [place] % (Auto) Eos % (Auto) Lymph # [place] # Eos # Seg Neutrophils % Lymphocytes % (Manual) Seg Neutrophils # Lymphocytes # (Manual) PT INR APTT D-Dimer Heparin Anti-Xa Level POC ABG pH POC ABG pCO2 POC ABG pO2 Sodium Potassium Chloride Carbon Dioxide BUN Creatinine Glucose POC Glucose 242 H 305 H 225 H Lactic Acid Calcium Magnesium AST Alkaline Phosphatase Total Creatine Kinase CK-MB (CK-2) Troponin T C-Reactive Protein Total Protein Albumin Cholesterol LDL Cholesterol Direct HDL Cholesterol Free T4 Urine WBC (Auto) Urine Creatinine Urine Total Protein Crossmatch 09/03/18 09/03/18 09/03/18 07:52 07:52 10:19 WBC RBC 3.29 L Hgb 9.0 L Hct 27.3 L MCV 83 L MCH 27 L MCHC RDW 18.4 H Lymph % (Auto) [place] % (Auto) Eos % (Auto) Lymph # [place] # Eos # Seg Neutrophils % Lymphocytes % (Manual) Seg Neutrophils # Lymphocytes # (Manual) PT INR APTT D-Dimer Heparin Anti-Xa Level POC ABG pH POC ABG pCO2 POC ABG pO2 Sodium Potassium Chloride Carbon Dioxide BUN 23 H Creatinine Glucose 205 H POC Glucose 228 H Lactic Acid Calcium 7.9 L Magnesium AST Alkaline Phosphatase Total Creatine Kinase CK-MB (CK-2) Troponin T C-Reactive Protein Total Protein Albumin Cholesterol LDL Cholesterol Direct HDL Cholesterol Free T4 Urine WBC (Auto) Urine Creatinine Urine Total Protein Crossmatch 09/03/18 09/03/18 09/03/18 13:42 17:22 21:33 WBC RBC Hgb Hct MCV MCH MCHC RDW Lymph % (Auto) [place] % (Auto) Eos % (Auto) Lymph # [place] # Eos # Seg Neutrophils % Lymphocytes % (Manual) Seg Neutrophils # Lymphocytes # (Manual) PT INR APTT D-Dimer Heparin Anti-Xa Level POC ABG pH POC ABG pCO2 POC ABG pO2 Sodium Potassium Chloride Carbon Dioxide BUN Creatinine Glucose POC Glucose 221 H 186 H 179 H Lactic Acid Calcium Magnesium AST Alkaline Phosphatase Total Creatine Kinase CK-MB (CK-2) Troponin T C-Reactive Protein Total Protein Albumin Cholesterol LDL Cholesterol Direct HDL Cholesterol Free T4 Urine WBC (Auto) Urine Creatinine Urine Total Protein Crossmatch 09/04/18 09/04/18 09/04/18 02:07 05:54 11:03 WBC RBC Hgb Hct MCV MCH MCHC RDW Lymph % (Auto) [place] % (Auto) Eos % (Auto) Lymph # [place] # Eos # Seg Neutrophils % Lymphocytes % (Manual) Seg Neutrophils # Lymphocytes # (Manual) PT INR APTT D-Dimer Heparin Anti-Xa Level POC ABG pH POC ABG pCO2 POC ABG pO2 Sodium Potassium Chloride Carbon Dioxide BUN Creatinine Glucose POC Glucose 174 H 171 H 181 H Lactic Acid Calcium Magnesium AST Alkaline Phosphatase Total Creatine Kinase CK-MB (CK-2) Troponin T C-Reactive Protein Total Protein Albumin Cholesterol LDL Cholesterol Direct HDL Cholesterol Free T4 Urine WBC (Auto) Urine Creatinine Urine Total Protein Crossmatch 09/04/18 09/04/18 09/04/18 14:59 18:24 21:50 WBC RBC Hgb Hct MCV MCH MCHC RDW Lymph % (Auto) [place] % (Auto) Eos % (Auto) Lymph # [place] # Eos # Seg Neutrophils % Lymphocytes % (Manual) Seg Neutrophils # Lymphocytes # (Manual) PT INR APTT D-Dimer Heparin Anti-Xa Level POC ABG pH POC ABG pCO2 POC ABG pO2 Sodium Potassium Chloride Carbon Dioxide BUN Creatinine Glucose POC Glucose 204 H 236 H 197 H Lactic Acid Calcium Magnesium AST Alkaline Phosphatase Total Creatine Kinase CK-MB (CK-2) Troponin T C-Reactive Protein Total Protein Albumin Cholesterol LDL Cholesterol Direct HDL Cholesterol Free T4 Urine WBC (Auto) Urine Creatinine Urine Total Protein Crossmatch 09/05/18 09/05/18 09/05/18 01:32 04:52 04:52 WBC RBC 3.16 L Hgb 8.7 L Hct 26.0 L MCV 82 L MCH MCHC RDW 18.9 H Lymph % (Auto) [place] % (Auto) Eos % (Auto) Lymph # [place] # Eos # Seg Neutrophils % Lymphocytes % (Manual) Seg Neutrophils # Lymphocytes # (Manual) PT INR APTT D-Dimer Heparin Anti-Xa Level POC ABG pH POC ABG pCO2 POC ABG pO2 Sodium Potassium Chloride 107.2 H Carbon Dioxide BUN 23 H Creatinine 0.7 L Glucose 215 H POC Glucose 210 H Lactic Acid Calcium 8.3 L Magnesium AST Alkaline Phosphatase Total Creatine Kinase CK-MB (CK-2) Troponin T C-Reactive Protein Total Protein Albumin Cholesterol LDL Cholesterol Direct HDL Cholesterol Free T4 Urine WBC (Auto) Urine Creatinine Urine Total Protein Crossmatch 09/05/18 09/05/18 09/05/18 05:36 10:26 13:11 WBC RBC Hgb Hct MCV MCH MCHC RDW Lymph % (Auto) [place] % (Auto) Eos % (Auto) Lymph # [place] # Eos # Seg Neutrophils % Lymphocytes % (Manual) Seg Neutrophils # Lymphocytes # (Manual) PT INR APTT D-Dimer Heparin Anti-Xa Level POC ABG pH POC ABG pCO2 POC ABG pO2 Sodium Potassium Chloride Carbon Dioxide BUN Creatinine Glucose POC Glucose 216 H 206 H 161 H Lactic Acid Calcium Magnesium AST Alkaline Phosphatase Total Creatine Kinase CK-MB (CK-2) Troponin T C-Reactive Protein Total Protein Albumin Cholesterol LDL Cholesterol Direct HDL Cholesterol Free T4 Urine WBC (Auto) Urine Creatinine Urine Total Protein Crossmatch 09/05/18 09/05/18 09/05/18 18:27 18:32 22:05 WBC RBC Hgb Hct MCV MCH MCHC RDW Lymph % (Auto) [place] % (Auto) Eos % (Auto) Lymph # [place] # Eos # Seg Neutrophils % Lymphocytes % (Manual) Seg Neutrophils # Lymphocytes # (Manual) PT INR APTT D-Dimer Heparin Anti-Xa Level POC ABG pH 7.478 H POC ABG pCO2 POC ABG pO2 138 H Sodium Potassium Chloride Carbon Dioxide BUN Creatinine Glucose POC Glucose 154 H 149 H Lactic Acid Calcium Magnesium AST Alkaline Phosphatase Total Creatine Kinase CK-MB (CK-2) Troponin T C-Reactive Protein Total Protein Albumin Cholesterol LDL Cholesterol Direct HDL Cholesterol Free T4 Urine WBC (Auto) Urine Creatinine Urine Total Protein Crossmatch 09/06/18 09/06/18 09/06/18 04:40 08:30 10:06 WBC RBC Hgb Hct MCV MCH MCHC RDW Lymph % (Auto) [place] % (Auto) Eos % (Auto) Lymph # [place] # Eos # Seg Neutrophils % Lymphocytes % (Manual) Seg Neutrophils # Lymphocytes # (Manual) PT INR APTT D-Dimer Heparin Anti-Xa Level POC ABG pH POC ABG pCO2 POC ABG pO2 Sodium Potassium Chloride Carbon Dioxide BUN Creatinine Glucose POC Glucose 140 H 188 H 199 H Lactic Acid Calcium Magnesium AST Alkaline Phosphatase Total Creatine Kinase CK-MB (CK-2) Troponin T C-Reactive Protein Total Protein Albumin Cholesterol LDL Cholesterol Direct HDL Cholesterol Free T4 Urine WBC (Auto) Urine Creatinine Urine Total Protein Crossmatch 09/06/18 09/06/18 09/06/18 12:13 14:23 17:11 WBC RBC Hgb Hct MCV MCH MCHC RDW Lymph % (Auto) [place] % (Auto) Eos % (Auto) Lymph # [place] # Eos # Seg Neutrophils % Lymphocytes % (Manual) Seg Neutrophils # Lymphocytes # (Manual) PT INR APTT D-Dimer Heparin Anti-Xa Level POC ABG pH POC ABG pCO2 POC ABG pO2 Sodium Potassium Chloride Carbon Dioxide BUN Creatinine Glucose POC Glucose 177 H 180 H 216 H Lactic Acid Calcium Magnesium AST Alkaline Phosphatase Total Creatine Kinase CK-MB (CK-2) Troponin T C-Reactive Protein Total Protein Albumin Cholesterol LDL Cholesterol Direct HDL Cholesterol Free T4 Urine WBC (Auto) Urine Creatinine Urine Total Protein Crossmatch 09/06/18 09/07/18 09/07/18 21:47 02:02 04:55 WBC RBC 3.08 L Hgb 8.5 L Hct 25.2 L MCV 82 L MCH MCHC RDW 18.8 H Lymph % (Auto) [place] % (Auto) Eos % (Auto) Lymph # 0.8 L [place] # Eos # Seg Neutrophils % 84.8 H Lymphocytes % (Manual) Seg Neutrophils # Lymphocytes # (Manual) PT INR APTT D-Dimer Heparin Anti-Xa Level POC ABG pH POC ABG pCO2 POC ABG pO2 Sodium Potassium Chloride Carbon Dioxide BUN Creatinine Glucose POC Glucose 275 H 291 H Lactic Acid Calcium Magnesium AST Alkaline Phosphatase Total Creatine Kinase CK-MB (CK-2) Troponin T C-Reactive Protein Total Protein Albumin Cholesterol LDL Cholesterol Direct HDL Cholesterol Free T4 Urine WBC (Auto) Urine Creatinine Urine Total Protein Crossmatch 09/07/18 09/07/18 09/07/18 04:55 06:02 10:27 WBC RBC Hgb Hct MCV MCH MCHC RDW Lymph % (Auto) [place] % (Auto) Eos % (Auto) Lymph # [place] # Eos # Seg Neutrophils % Lymphocytes % (Manual) Seg Neutrophils # Lymphocytes # (Manual) PT INR APTT D-Dimer Heparin Anti-Xa Level POC ABG pH POC ABG pCO2 POC ABG pO2 Sodium Potassium Chloride Carbon Dioxide BUN 30 H Creatinine 0.7 L Glucose 291 H POC Glucose 320 H 365 H Lactic Acid Calcium Magnesium AST Alkaline Phosphatase Total Creatine Kinase CK-MB (CK-2) Troponin T C-Reactive Protein Total Protein Albumin Cholesterol LDL Cholesterol Direct HDL Cholesterol Free T4 Urine WBC (Auto) Urine Creatinine Urine Total Protein Crossmatch 09/07/18 09/07/18 09/07/18 13:52 17:12 21:29 WBC RBC Hgb Hct MCV MCH MCHC RDW Lymph % (Auto) [place] % (Auto) Eos % (Auto) Lymph # [place] # Eos # Seg Neutrophils % Lymphocytes % (Manual) Seg Neutrophils # Lymphocytes # (Manual) PT INR APTT D-Dimer Heparin Anti-Xa Level POC ABG pH POC ABG pCO2 POC ABG pO2 Sodium Potassium Chloride Carbon Dioxide BUN Creatinine Glucose POC Glucose 364 H 338 H 242 H Lactic Acid Calcium Magnesium AST Alkaline Phosphatase Total Creatine Kinase CK-MB (CK-2) Troponin T C-Reactive Protein Total Protein Albumin Cholesterol LDL Cholesterol Direct HDL Cholesterol Free T4 Urine WBC (Auto) Urine Creatinine Urine Total Protein Crossmatch 09/07/18 09/08/18 09/08/18 22:24 02:02 04:22 WBC 14.8 H RBC 3.15 L Hgb 8.5 L Hct 26.3 L MCV 83 L MCH 27 L MCHC RDW 19.6 H Lymph % (Auto) [place] % (Auto) Eos % (Auto) Lymph # [place] # Eos # Seg Neutrophils % Lymphocytes % (Manual) Seg Neutrophils # Lymphocytes # (Manual) PT INR APTT D-Dimer Heparin Anti-Xa Level POC ABG pH 7.484 H POC ABG pCO2 POC ABG pO2 61 L Sodium Potassium Chloride Carbon Dioxide BUN Creatinine Glucose POC Glucose 324 H Lactic Acid Calcium Magnesium AST Alkaline Phosphatase Total Creatine Kinase CK-MB (CK-2) Troponin T C-Reactive Protein Total Protein Albumin Cholesterol LDL Cholesterol Direct HDL Cholesterol Free T4 Urine WBC (Auto) Urine Creatinine Urine Total Protein Crossmatch 09/08/18 09/08/18 09/08/18 04:22 05:33 09:40 WBC RBC Hgb Hct MCV MCH MCHC RDW Lymph % (Auto) [place] % (Auto) Eos % (Auto) Lymph # [place] # Eos # Seg Neutrophils % Lymphocytes % (Manual) Seg Neutrophils # Lymphocytes # (Manual) PT INR APTT D-Dimer Heparin Anti-Xa Level POC ABG pH POC ABG pCO2 POC ABG pO2 Sodium Potassium Chloride Carbon Dioxide BUN 39 H Creatinine Glucose 320 H POC Glucose 324 H 329 H Lactic Acid Calcium 8.3 L Magnesium AST Alkaline Phosphatase Total Creatine Kinase CK-MB (CK-2) Troponin T C-Reactive Protein Total Protein Albumin Cholesterol LDL Cholesterol Direct HDL Cholesterol Free T4 Urine WBC (Auto) Urine Creatinine Urine Total Protein Crossmatch 09/08/18 09/08/18 09/08/18 13:11 18:02 21:27 WBC RBC Hgb Hct MCV MCH MCHC RDW Lymph % (Auto) [place] % (Auto) Eos % (Auto) Lymph # [place] # Eos # Seg Neutrophils % Lymphocytes % (Manual) Seg Neutrophils # Lymphocytes # (Manual) PT INR APTT D-Dimer Heparin Anti-Xa Level POC ABG pH POC ABG pCO2 POC ABG pO2 Sodium Potassium Chloride Carbon Dioxide BUN Creatinine Glucose POC Glucose 369 H 331 H 304 H Lactic Acid Calcium Magnesium AST Alkaline Phosphatase Total Creatine Kinase CK-MB (CK-2) Troponin T C-Reactive Protein Total Protein Albumin Cholesterol LDL Cholesterol Direct HDL Cholesterol Free T4 Urine WBC (Auto) Urine Creatinine Urine Total Protein Crossmatch 09/09/18 09/09/18 09/09/18 02:03 05:29 09:20 WBC RBC Hgb Hct MCV MCH MCHC RDW Lymph % (Auto) [place] % (Auto) Eos % (Auto) Lymph # [place] # Eos # Seg Neutrophils % Lymphocytes % (Manual) Seg Neutrophils # Lymphocytes # (Manual) PT INR APTT D-Dimer Heparin Anti-Xa Level POC ABG pH POC ABG pCO2 POC ABG pO2 Sodium Potassium Chloride Carbon Dioxide BUN Creatinine Glucose POC Glucose 361 H 204 H 292 H Lactic Acid Calcium Magnesium AST Alkaline Phosphatase Total Creatine Kinase CK-MB (CK-2) Troponin T C-Reactive Protein Total Protein Albumin Cholesterol LDL Cholesterol Direct HDL Cholesterol Free T4 Urine WBC (Auto) Urine Creatinine Urine Total Protein Crossmatch 09/09/18 09/09/18 09/09/18 14:20 15:04 18:08 WBC RBC Hgb Hct MCV MCH MCHC RDW Lymph % (Auto) [place] % (Auto) Eos % (Auto) Lymph # [place] # Eos # Seg Neutrophils % Lymphocytes % (Manual) Seg Neutrophils # Lymphocytes # (Manual) PT INR APTT D-Dimer Heparin Anti-Xa Level POC ABG pH 7.464 H POC ABG pCO2 POC ABG pO2 109 H Sodium Potassium Chloride Carbon Dioxide BUN Creatinine Glucose POC Glucose 253 H 196 H Lactic Acid Calcium Magnesium AST Alkaline Phosphatase Total Creatine Kinase CK-MB (CK-2) Troponin T C-Reactive Protein Total Protein Albumin Cholesterol LDL Cholesterol Direct HDL Cholesterol Free T4 Urine WBC (Auto) Urine Creatinine Urine Total Protein Crossmatch 09/09/18 09/10/18 09/10/18 22:23 02:32 06:10 WBC RBC Hgb Hct MCV MCH MCHC RDW Lymph % (Auto) [place] % (Auto) Eos % (Auto) Lymph # [place] # Eos # Seg Neutrophils % Lymphocytes % (Manual) Seg Neutrophils # Lymphocytes # (Manual) PT INR APTT D-Dimer Heparin Anti-Xa Level POC ABG pH POC ABG pCO2 POC ABG pO2 Sodium Potassium Chloride Carbon Dioxide BUN Creatinine Glucose POC Glucose 245 H 238 H 250 H Lactic Acid Calcium Magnesium AST Alkaline Phosphatase Total Creatine Kinase CK-MB (CK-2) Troponin T C-Reactive Protein Total Protein Albumin Cholesterol LDL Cholesterol Direct HDL Cholesterol Free T4 Urine WBC (Auto) Urine Creatinine Urine Total Protein Crossmatch 09/10/18 08:16 WBC RBC Hgb Hct MCV MCH MCHC RDW Lymph % (Auto) [place] % (Auto) Eos % (Auto) Lymph # [place] # Eos # Seg Neutrophils % Lymphocytes % (Manual) Seg Neutrophils # Lymphocytes # (Manual) PT INR APTT D-Dimer Heparin Anti-Xa Level POC ABG pH POC ABG pCO2 POC ABG pO2 Sodium Potassium Chloride Carbon Dioxide BUN Creatinine Glucose POC Glucose 232 H Lactic Acid Calcium Magnesium AST Alkaline Phosphatase Total Creatine Kinase CK-MB (CK-2) Troponin T C-Reactive Protein Total Protein Albumin Cholesterol LDL Cholesterol Direct HDL Cholesterol Free T4 Urine WBC (Auto) Urine Creatinine Urine Total Protein Crossmatch Allied health notes reviewed: nursing
[2018-09-10] MEDS: SODIUM CHLORIDE FLUSH SYRINGE 10 ML IV SCH ×2 (10:00→22:35)
[2018-09-10] MEDS: KEPPRA PO SCH ×2 (11:34→22:35)
[2018-09-10] MEDS: ASPIRIN PO SCH (11:34)
[2018-09-10] MEDS: NORVASC FEEDTUBE SCH (11:34)
[2018-09-10] MEDS: PEPCID PO SCH ×2 (11:34→22:35)
[2018-09-10] MEDS: SENOKOT S PO SCH (11:34)
--- NOTE | 2018-09-10 12:20 | Progress Note ---
Assessment and Plan Assessment and plan: Cardiopulmonary arrest x 3: Most likely related to mucus plugging >NSTEMI, lead ing to severe irreversible brain damage: supportive care, CCM following. Acute on chronic respiratory failure Trach has been removed when patient was orally intubated, continue ventilator management per pulmonology. Tracheostomy was replaced by surgery on 08/25/18. Tracheostomy care, airway clearance, secretion management Right pneumothorax, resolved. Status post chest tube, mgt per pulmonology Hypoxic encephalopathy: neurology consult appreciated, poor prognosis, poor likelihood of recovery, preserved brain stem function otherwise unresponsive. EEG is suggestive hypoxic encephalopathy. Hypertension. Hydralazine 100 mg 3 times a day, cont norvasc Hypernatremia, Continue free water via G-tube, sp hypotonic IV solution, monitor bmp closely Acute kidney injury likely due to ATN Nephrology following, continue IV fluid, avoid renal toxic agents NSTEMI: treated with IV heparin, asa, statin, no bblocker due to bradycardia, hypotension, Cardiology is following Severe protein calorie malnutrition: Dietitian consulted, continue tube feedings UTI/sepsis: Continue antibiotics, follow-up urine cultures-->no growth x 48 hours Type 2 dm with persistent hyperglycemia: cont insulins and adjust according, on tube feedings Anemia: s/p transfusion Urinary retention: continue douglass, condom cath DVT prophylaxis; patient is fully anticoagulated on heparin drip Disposition. Await another follow-up with LTAC placement. I discussed with case management. History Interval history: Patient is a 77 yo man from [facility] with a history of respiratory failure, CVA with tracheostomy and Gtube who presented to [facility] ED following cardiac arrest after being found unresponsive at the halfway. Time down is unknown per records. The patient is on the vent and unresponsive, all history is obtained from the chart. Patient had multiple episodes of arrest/pulselessness. He has been on the vent since then without any improvement. Per ER notes the patient was bagged via tracheostomy which continued to have low tidal volumes and so the patient with orally intubated after which tidal volumes improved. I spoke with and daughter, Felicita and they believe that he aspirated with a mucus plug that caused the cardiopulmonary arrest not NSTEMI.. Initially, he went to [facility] may 05 to june 05, he had fluid on brain and multiple strokes per family and they drained the fluid off the brain. The trach was placed at [facility] and patient went to [facility], x 7 weeks (trach was changed where capped was placed), he was doing well, talking and sitting up. Then he went to [facility], August 03 and his oral care was horrible. The trach care was horrible and not enough suctioning done. Mouth with copious amount of crud. Then on August 12, Friday, he had voice changing and mucus plugging. Followed by respiratory arrest. The NM brain flow scan showed reduced blood flow. Patient had evaluation by neurology who reports patient with intact brainstem function. Patient still comatose, no improvement. LTAC was recommended but denied. case management discussing options with family. Hospitalist Physical - Constitutional Vitals: Temp Pulse Resp BP Pulse Ox 98.6 F 104 H 20 143/70 96 09/10/18 12:02 09/10/18 12:02 09/10/18 12:02 09/10/18 12:02 09/10/18 12:02 General appearance: Present: other (twitching, nonresponsive, intubated) - EENT Eyes: Present: PERRL, EOM intact ENT: hearing intact, clear oral mucosa, dentition normal - Neck Neck: Present: supple, normal ROM - Respiratory Respiratory effort: normal Respiratory: bilateral: CTA - Cardiovascular Rhythm: regular Heart Sounds: Present: S1 & S2. Absent: gallop, rub - Extremities Extremities: no ischemia, No edema, Full ROM - Abdominal General gastrointestinal: soft, non-tender, non-distended, normal bowel sounds - Integumentary Integumentary: Present: clear, warm, dry - Neurologic Neurologic: CNII-XII intact, moves all extremities Results - Labs CBC & Chem 7: 09/08/18 04:22 09/08/18 04:22 Labs: Laboratory Last Values WBC 14.8 K/mm3 (4.5-11.0) H 09/08/18 04:22 RBC 3.15 M/mm3 (3.65-5.03) L 09/08/18 04:22 Hgb 8.5 gm/dl (11.8-15.2) L 09/08/18 04:22 Hct 26.3 % (35.5-45.6) L 09/08/18 04:22 MCV 83 fl (84-94) L 09/08/18 04:22 MCH 27 pg (28-32) L 09/08/18 04:22 MCHC 32 % (32-34) 09/08/18 04:22 RDW 19.6 % (13.2-15.2) H 09/08/18 04:22 Plt Count 180 K/mm3 (140-440) 09/08/18 04:22 Lymph % (Auto) 13.7 % (13.4-35.0) 09/07/18 04:55 [place] % (Auto) 1.3 % (0.0-7.3) 09/07/18 04:55 Eos % (Auto) 0.0 % (0.0-4.3) 09/07/18 04:55 Baso % (Auto) 0.2 % (0.0-1.8) 09/07/18 04:55 Lymph # 0.8 K/mm3 (1.2-5.4) L 09/07/18 04:55 [place] # 0.1 K/mm3 (0.0-0.8) 09/07/18 04:55 Eos # 0.0 K/mm3 (0.0-0.4) 09/07/18 04:55 Baso # 0.0 K/mm3 (0.0-0.1) 09/07/18 04:55 Add Manual Diff Complete 08/12/18 21:44 Total Counted 100 08/12/18 21:44 Seg Neutrophils % 84.8 % (40.0-70.0) H 09/07/18 04:55 Seg Neuts % (Manual) 44.0 % (40.0-70.0) 08/12/18 21:44 0 % 08/12/18 21:44 48.0 % (13.4-35.0) H 08/12/18 21:44 Reactive Lymphs % (Man) 0 % 08/12/18 21:44 2.0 % (0.0-7.3) 08/12/18 21:44 1.0 % (0.0-4.3) 08/12/18 21:44 0 % (0.0-1.8) 08/12/18 21:44 1.0 % 08/12/18 21:44 4.0 % 08/12/18 21:44 0 % 08/12/18 21:44 0 % 08/12/18 21:44 Nucleated RBC % Not Reportable 08/12/18 21:44 Seg Neutrophils # 5.1 K/mm3 (1.8-7.7) 09/07/18 04:55 Seg Neutrophils # Man 6.8 K/mm3 (1.8-7.7) 08/12/18 21:44 Band Neutrophils # 0.0 K/mm3 08/12/18 21:44 7.4 K/mm3 (1.2-5.4) H 08/12/18 21:44 Abs React Lymphs (Man) 0.0 K/mm3 08/12/18 21:44 0.3 K/mm3 (0.0-0.8) 08/12/18 21:44 0.2 K/mm3 (0.0-0.4) 08/12/18 21:44 0.0 K/mm3 (0.0-0.1) 08/12/18 21:44 0.2 K/mm3 08/12/18 21:44 0.6 K/mm3 08/12/18 21:44 0.0 K/mm3 08/12/18 21:44 Blast Cells # 0.0 K/mm3 08/12/18 21:44 WBC Morphology Not Reportable 08/12/18 21:44 Hypersegmented Neuts Not Reportable 08/12/18 21:44 Hyposegmented Neuts Not Reportable 08/12/18 21:44 Hypogranular Neuts Not Reportable 08/12/18 21:44 Not Reportable 08/12/18 21:44 Not Reportable 08/12/18 21:44 Not Reportable 08/12/18 21:44 Not Reportable 08/12/18 21:44 Not Reportable 08/12/18 21:44 Not Reportable 08/12/18 21:44 Consistent w auto 08/12/18 21:44 Not Reportable 08/12/18 21:44 Plt Clumps, EDTA Not Reportable 08/12/18 21:44 Not Reportable 08/12/18 21:44 Not Reportable 08/12/18 21:44 Not Reportable 08/12/18 21:44 Plt Morphology Comment Not Reportable 08/12/18 21:44 RBC Morphology Not Reportable 08/12/18 21:44 Dimorphic RBCs Not Reportable 08/12/18 21:44 Not Reportable 08/12/18 21:44 Not Reportable 08/12/18 21:44 Not Reportable 08/12/18 21:44 Few 08/12/18 21:44 Not Reportable 08/12/18 21:44 Not Reportable 08/12/18 21:44 Not Reportable 08/12/18 21:44 Not Reportable 08/12/18 21:44 Not Reportable 08/12/18 21:44 Not Reportable 08/12/18 21:44 Not Reportable 08/12/18 21:44 Few 08/12/18 21:44 Not Reportable 08/12/18 21:44 Not Reportable 08/12/18 21:44 Not Reportable 08/12/18 21:44 Not Reportable 08/12/18 21:44 Not Reportable 08/12/18 21:44 Not Reportable 08/12/18 21:44 Few 08/12/18 21:44 Acanthocytes (Spur) Not Reportable 08/12/18 21:44 Rouleaux Not Reportable 08/12/18 21:44 Not Reportable 08/12/18 21:44 Not Reportable 08/12/18 21:44 Not Reportable 08/12/18 21:44 Not Reportable 08/12/18 21:44 Hem Pathologist Commnt No 08/12/18 21:44 PT 16.5 Sec. (12.2-14.9) H 08/13/18 00:47 INR 1.25 (0.87-1.13) H 08/13/18 00:47 APTT 79.0 Sec. (24.2-36.6) H* 08/15/18 06:35 2742.50 ng/mlDDU (0-234) H 08/13/18 20:07 Heparin Anti-Xa Level 0.26 U.I./ml (0.3-0.7) L 08/16/18 20:01 POC ABG pH 7.464 (7.35-7.45) H 09/09/18 15:04 POC ABG pCO2 43.7 (35-45) 09/09/18 15:04 POC ABG pO2 109 (80-105) H 09/09/18 15:04 POC ABG HCO3 31.4 (22-26 mml/L) 09/09/18 15:04 POC ABG Total CO2 33 (23-27mmol/L) 09/09/18 15:04 POC ABG O2 Sat 98 09/09/18 15:04 POC ABG Base Excess 8 ((-2) - (+3)mmol/L) 09/09/18 15:04 35 % 09/09/18 15:04 Sodium 141 mmol/L (137-145) 09/08/18 04:22 Potassium 3.7 mmol/L (3.6-5.0) 09/08/18 04:22 Chloride 103.9 mmol/L (98-107) 09/08/18 04:22 Carbon Dioxide 26 mmol/L (22-30) 09/08/18 04:22 15 mmol/L 09/08/18 04:22 BUN 39 mg/dL (9-20) H 09/08/18 04:22 0.8 mg/dL (0.8-1.5) 09/08/18 04:22 Estimated GFR > 60 ml/min 09/08/18 04:22 49 % 09/08/18 04:22 Glucose 320 mg/dL (75-100) H 09/08/18 04:22 POC Glucose 267 (70-105) H 09/10/18 11:35 Lactic Acid 2.80 mmol/L (0.7-2.0) H* 08/13/18 12:53 Calcium 8.3 mg/dL (8.4-10.2) L 09/08/18 04:22 Phosphorus 3.90 mg/dL (2.5-4.5) 08/15/18 04:05 Magnesium 1.70 mg/dL (1.7-2.3) 09/06/18 14:35 < 0.20 mg/dL (0.1-1.2) 08/30/18 05:40 AST 50 units/L (5-40) H 08/30/18 05:40 ALT 31 units/L (7-56) 08/30/18 05:40 158 units/L (35-129) H 08/30/18 05:40 309 units/L (55-170) H 08/13/18 10:10 CK-MB (CK-2) 4.1 ng/mL (0.0-4.0) H 08/13/18 10:10 CK-MB (CK-2) Rel Index 1.3 (0-4) 08/13/18 10:10 0.409 ng/mL (0.00-0.029) H* 08/14/18 04:03 16.90 mg/dL (0.00-1.30) H 08/13/18 12:53 6.4 g/dL (6.3-8.2) 08/30/18 05:40 1.6 g/dL (3.9-5) L 08/30/18 05:40 0.3 % 08/30/18 05:40 Triglycerides 62 mg/dL (2-149) 08/13/18 00:32 Cholesterol 46 mg/dL (50-199) L 08/13/18 00:32 17 mg/dL (50-130) L 08/13/18 00:32 6 mg/dL (40-59) L 08/13/18 00:32 7.66 % 08/13/18 00:32 TSH 0.973 mlU/mL (0.270-4.200) 08/26/18 09:00 Free T4 0.51 ng/dL (0.76-1.46) L 08/26/18 09:00 Yellow (Yellow) 08/25/18 12:40 Turbid (Clear) 08/25/18 12:40 7.0 (5.0-7.0) 08/25/18 12:40 Ur Specific [place] 1.009 (1.003-1.030) 08/25/18 12:40 100 mg/dl mg/dL (Negative) 08/25/18 12:40 Neg mg/dL (Negative) 08/25/18 12:40 Neg mg/dL (Negative) 08/25/18 12:40 Mod (Negative) 08/25/18 12:40 Neg (Negative) 08/25/18 12:40 Neg (Negative) 08/25/18 12:40 < 2.0 mg/dL (<2.0) 08/25/18 12:40 Ur Leukocyte Esterase Lg (Negative) 08/25/18 12:40 > 182.0 /HPF (0.0-6.0) H 08/25/18 12:40 10.0 /HPF (0.0-6.0) 08/25/18 12:40 U Epithel Cells (Auto) 5.0 /HPF (0-13.0) 08/25/18 12:40 2+ /HPF (Negative) 08/13/18 00:50 3+ /HPF 08/25/18 12:40 None seen (None Seen) 08/14/18 17:20 60.9 mg/dL (0.1-20.0) H 08/14/18 17:20 32 mmol/L 08/14/18 17:20 64 mg/dL (5-11.8) H 08/14/18 17:20 Presumptive negative 08/12/18 21:30 Presumptive negative 08/12/18 21:30 Ur Barbiturates Screen Presumptive negative 08/12/18 21:30 Ur Phencyclidine Scrn Presumptive negative 08/12/18 21:30 Ur Amphetamines Screen Presumptive negative 08/12/18 21:30 U Benzodiazepines Scrn Presumptive negative 08/12/18 21:30 Presumptive negative 08/12/18 21:30 U Marijuana (THC) Screen Presumptive negative 08/12/18 21:30 Disclamer 08/12/18 21:30 Blood Type O POSITIVE 08/15/18 15:31 Antibody Screen Negative 08/15/18 15:31 Crossmatch See Detail 08/15/18 15:31 Active Medications - Current Medications Current Medications: Generic Name Dose Route Start Last Admin Trade Name Freq PRN Reason Stop Dose Admin Acetaminophen 650 mg 08/13/18 11:40 08/13/18 16:09 Tylenol PO 650 mg Q6H PRN Administration Fever >101 Amlodipine Besylate 5 mg 09/02/18 10:00 09/10/18 11:34 Norvasc FEEDTUBE 5 mg QDAY LENCHO Administration Lipase/Protease/Amylase 1 each 08/25/18 18:36 Pancreazgenia Alas 10,500 Unit FEEDTUBE PRN PRN For Clogged Feeding Tube Aspirin 325 mg 08/17/18 10:00 09/10/18 11:34 Aspirin PO 325 mg QDAY LENCHO Administration Atorvastatin Calcium 40 mg 08/14/18 22:00 09/09/18 22:19 Lipitor PO 40 mg QHS LENCHO Administration Dextrose 50 ml 08/13/18 01:34 D50w (25gm) Syringe IV PRN PRN Hypoglycemia Enoxaparin Sodium 40 mg 08/17/18 22:00 09/09/18 22:19 Lovenox SUB-Q 40 mg QDAY@2200 LENCHO Administration Famotidine 20 mg 08/19/18 10:00 09/10/18 11:34 Pepcid PO 20 mg BID LENCHO Administration Hydralazine HCl 100 mg 09/02/18 09:00 09/10/18 06:01 Apresoline PO 100 mg Q8HR LENCHO Administration Hydralazine HCl 20 mg 09/02/18 08:16 Apresoline IV Q4HR PRN SBP>160 or DBP>110 Hydrophilic Ointment 1 applic 08/13/18 12:21 Vaseline Lip Therapy TP Q2HR PRN Dry Lips Insulin Glargine 45 units 09/08/18 22:00 09/09/18 22:53 Lantus SUB-Q 45 units QHS LENCHO Administration Insulin Human Lispro 0 unit 08/26/18 10:00 09/10/18 11:50 Humalog SUB-Q 4 unit Q4HR LENCHO Administration Protocol Levetiracetam 500 mg 08/27/18 22:00 09/10/18 11:34 Keppra PO 500 mg BID LENCHO Administration Multi-Ingred Cream/Lotion/Oil/Oint 1 applic 08/13/18 12:21 08/17/18 00:41 Artificial Tears Ophth Oint OU 1 applic Q4HR PRN Administration Dry Eye(s) Ondansetron HCl 4 mg 08/13/18 01:34 Zofran IV Q8H PRN Nausea And Vomiting Senna/Docusate Sodium 2 tab 09/07/18 14:00 09/10/18 11:34 Senokot S PO 2 tab DAILY LENCHO Administration Simple Syrup 15 ml 08/25/18 18:36 Simple Syrup FEEDTUBE PRN PRN Hypoglycemia Simple Syrup 30 ml 08/25/18 18:36 Simple Syrup FEEDTUBE PRN PRN Hypoglycemia Sodium Bicarbonate 325 mg 08/25/18 18:36 Sodium Bicarbonate FEEDTUBE PRN PRN For Clogged Feeding Tube Sodium Chloride 10 ml 08/13/18 10:00 09/09/18 22:23 Sodium Chloride Flush Syringe 10 Ml IV 10 ml BID LENCHO Administration Sodium Chloride 10 ml 08/13/18 01:34 08/30/18 22:29 Sodium Chloride Flush Syringe 10 Ml IV 10 ml PRN PRN Administration LINE FLUSH Nutrition/Malnutrition Assess - Dietary Evaluation Nutrition/Malnutrition Findings: Nutrition Notes Start: 08/13/18 15:41 Freq: Status: Active Protocol: Document 09/03/18 16:28 RM (Rec: 09/03/18 16:32 RM [id number]) Nutrition Notes Initial or Follow up Reassessment Current Diagnosis Acute Kidney Injury,Diabetes Other Pertinent Diagnosis UTI, Hx CVA, PEG, Sacral PU, Multiple PU, Anoxic brain injury,R pneumothorax Current Diet Vital 1.2 at 60 ml/hr Labs/Tests Reviewed Pertinent Medications Reviewed Height 5 ft 8 in Weight 78.5 kg [place] Body Weight (kg) 70.00 BMI 26.3 Subjective/Other Information Observed Vital 1.2 hanging in room but not infusing. Nurse unsure why TF was off and turned it back on. Residential Support Worker saw that TF rate was at goal. Stated that pt has been tolerating TF at goal. Percent of energy/protein needs met: 97%/100% Burn Absent Trauma Absent #1 Nutrition Diagnosis Inadequate oral intake Diagnosis Progress(for reassessment Continues documentation) Is patient on ventilator? Yes Is Patient Ambulatory and/or Out of Bed No REE-([facility]-confined to bed) 4543.053 Calculation Used for Recommendations [facility] Additional Notes Protein Needs: 87-145g (1.2-2g /kg) Fluid Needs: 1 ml/kcal Nutrition Intervention Change Diet Order: TF Nutrition Support: Vital 1.2 at 60 ml/hr. Water flush of 250ml q4h for hypernatremia and 100 mls q 4 hrs once resolved. Kcal 1,728 Protein (gm) 108 Fluid (mL) 1,167 Fiber (gm) 7 Add Supplement/Snack (indicate name/kcal Magen BID /protein ) Provides kCal: 190 Provides Protein (gm) 5 Goal #1 Meet at least 80% of calorie and protein needs via TF Anticipated Discharge Needs: TF Follow-Up By: 09/10/18 Additional Comments Follow for TF tolerance
[2018-09-10] MEDS ORDERED: SIMPLE SYRUP FEEDTUBE PRN ×2 (17:12)
[2018-09-10] MEDS ORDERED: SODIUM BICARBONATE FEEDTUBE PRN (17:12)
[2018-09-10] MEDS ORDERED: PANCREAZE DR 10,500 UNIT FEEDTUBE PRN (17:12)
[2018-09-10] MEDS: LOVENOX SUB-Q SCH (22:35)
[2018-09-10] MEDS: LANTUS SUB-Q SCH (22:35)
[2018-09-10] MEDS: TYLENOL PO PRN (23:47)
[2018-09-11] MEDS: HumaLOG SUB-Q SCH ×6 (02:25→22:04)
[2018-09-11] MEDS: APRESOLINE PO SCH ×3 (06:35→22:04)
[2018-09-11] MEDS: KEPPRA PO SCH ×2 (11:54→22:04)
[2018-09-11] MEDS: NORVASC FEEDTUBE SCH (11:54)
[2018-09-11] MEDS: SENOKOT S PO SCH (11:55)
[2018-09-11] MEDS: ASPIRIN PO SCH (11:56)
[2018-09-11] MEDS: PEPCID PO SCH ×2 (11:56→22:04)
[2018-09-11] MEDS: SODIUM CHLORIDE FLUSH SYRINGE 10 ML IV SCH ×2 (11:57→22:05)
--- NOTE | 2018-09-11 12:07 | Progress Note ---
Assessment and Plan Assessment and plan: Cardiopulmonary arrest x 3: Most likely related to mucus plugging >NSTEMI, lead ing to severe irreversible brain damage: supportive care, CCM following. Acute on chronic respiratory failure Trach has been removed when patient was orally intubated, continue ventilator management per pulmonology. Tracheostomy was replaced by surgery on 08/25/18. Tracheostomy care, airway clearance, secretion management Right pneumothorax, resolved. Status post chest tube, mgt per pulmonology Hypoxic encephalopathy: neurology consult appreciated, poor prognosis, poor likelihood of recovery, preserved brain stem function otherwise unresponsive. EEG is suggestive hypoxic encephalopathy. Hypertension. Hydralazine 100 mg 3 times a day, cont norvasc Hypernatremia, Continue free water via G-tube, sp hypotonic IV solution, monitor bmp closely Acute kidney injury likely due to ATN Nephrology following, continue IV fluid, avoid renal toxic agents NSTEMI: treated with IV heparin, asa, statin, no bblocker due to bradycardia, hypotension, Cardiology is following Severe protein calorie malnutrition: Dietitian consulted, continue tube feedings UTI/sepsis: Previously Resolved. Patient had been off antibiotics. However with new temperature spike yesterday. Recheck blood cultures. Type 2 dm with persistent hyperglycemia: cont insulins and adjust according, on tube feedings Anemia: s/p transfusion Urinary retention: continue douglass, condom cath DVT prophylaxis; patient is fully anticoagulated on heparin drip Disposition. Await another follow-up with LTAC placement. I discussed with case management. History Interval history: Patient is a 77 yo man from [facility] with a history of respiratory failure, CVA with tracheostomy and Gtube who presented to [facility] ED following cardiac arrest after being found unresponsive at the detention. Time down is unknown per records. The patient is on the vent and unresponsive, all history is obtained from the chart. Patient had multiple episodes of arrest/pulselessness. He has been on the vent since then without any improvement. Per ER notes the patient was bagged via tracheostomy which continued to have low tidal volumes and so the patient with orally intubated after which tidal volumes improved. I spoke with and daughter, Felicita and they believe that he aspirated with a mucus plug that caused the cardiopulmonary arrest not NSTEMI.. Initially, he went to [facility] may 05 to june 05, he had fluid on brain and multiple strokes per family and they drained the fluid off the brain. The trach was placed at [facility] and patient went to [facility], x 7 weeks (trach was changed where capped was placed), he was doing well, talking and sitting up. Then he went to [facility], August 03 and his oral care was horrible. The trach care was horrible and not enough suctioning done. Mouth with copious amount of crud. Then on August 12, Friday, he had voice changing and mucus plugging. Followed by respiratory arrest. The NM brain flow scan showed reduced blood flow. Patient had evaluation by neurology who reports patient with intact brainstem function. Patient still comatose, no improvement. LTAC was recommended but denied. case management discussing options with family. Hospitalist Physical - Constitutional Vitals: Temp Pulse Resp BP Pulse Ox 99.5 F 98 H 18 167/77 98 09/11/18 08:11 09/11/18 08:11 09/11/18 08:11 09/11/18 08:11 09/11/18 08:11 General appearance: Present: other (twitching, nonresponsive, intubated) - EENT Eyes: Present: PERRL, EOM intact ENT: hearing intact, clear oral mucosa, dentition normal - Neck Neck: Present: supple, normal ROM - Respiratory Respiratory effort: normal Respiratory: bilateral: CTA - Cardiovascular Rhythm: regular Heart Sounds: Present: S1 & S2. Absent: gallop, rub - Extremities Extremities: no ischemia, No edema, Full ROM - Abdominal General gastrointestinal: soft, non-tender, non-distended, normal bowel sounds - Integumentary Integumentary: Present: clear, warm, dry - Neurologic Neurologic: CNII-XII intact, moves all extremities Results - Labs CBC & Chem 7: 09/08/18 04:22 09/08/18 04:22 Labs: Laboratory Last Values WBC 14.8 K/mm3 (4.5-11.0) H 09/08/18 04:22 RBC 3.15 M/mm3 (3.65-5.03) L 09/08/18 04:22 Hgb 8.5 gm/dl (11.8-15.2) L 09/08/18 04:22 Hct 26.3 % (35.5-45.6) L 09/08/18 04:22 MCV 83 fl (84-94) L 09/08/18 04:22 MCH 27 pg (28-32) L 09/08/18 04:22 MCHC 32 % (32-34) 09/08/18 04:22 RDW 19.6 % (13.2-15.2) H 09/08/18 04:22 Plt Count 180 K/mm3 (140-440) 09/08/18 04:22 Lymph % (Auto) 13.7 % (13.4-35.0) 09/07/18 04:55 Davie % (Auto) 1.3 % (0.0-7.3) 09/07/18 04:55 Eos % (Auto) 0.0 % (0.0-4.3) 09/07/18 04:55 Baso % (Auto) 0.2 % (0.0-1.8) 09/07/18 04:55 Lymph # 0.8 K/mm3 (1.2-5.4) L 09/07/18 04:55 Davie # 0.1 K/mm3 (0.0-0.8) 09/07/18 04:55 Eos # 0.0 K/mm3 (0.0-0.4) 09/07/18 04:55 Baso # 0.0 K/mm3 (0.0-0.1) 09/07/18 04:55 Add Manual Diff Complete 08/12/18 21:44 Total Counted 100 08/12/18 21:44 Seg Neutrophils % 84.8 % (40.0-70.0) H 09/07/18 04:55 Seg Neuts % (Manual) 44.0 % (40.0-70.0) 08/12/18 21:44 0 % 08/12/18 21:44 48.0 % (13.4-35.0) H 08/12/18 21:44 Reactive Lymphs % (Man) 0 % 08/12/18 21:44 2.0 % (0.0-7.3) 08/12/18 21:44 1.0 % (0.0-4.3) 08/12/18 21:44 0 % (0.0-1.8) 08/12/18 21:44 1.0 % 08/12/18 21:44 4.0 % 08/12/18 21:44 0 % 08/12/18 21:44 0 % 08/12/18 21:44 Nucleated RBC % Not Reportable 08/12/18 21:44 Seg Neutrophils # 5.1 K/mm3 (1.8-7.7) 09/07/18 04:55 Seg Neutrophils # Man 6.8 K/mm3 (1.8-7.7) 08/12/18 21:44 Band Neutrophils # 0.0 K/mm3 08/12/18 21:44 7.4 K/mm3 (1.2-5.4) H 08/12/18 21:44 Abs React Lymphs (Man) 0.0 K/mm3 08/12/18 21:44 0.3 K/mm3 (0.0-0.8) 08/12/18 21:44 0.2 K/mm3 (0.0-0.4) 08/12/18 21:44 0.0 K/mm3 (0.0-0.1) 08/12/18 21:44 0.2 K/mm3 08/12/18 21:44 0.6 K/mm3 08/12/18 21:44 0.0 K/mm3 08/12/18 21:44 Blast Cells # 0.0 K/mm3 08/12/18 21:44 WBC Morphology Not Reportable 08/12/18 21:44 Hypersegmented Neuts Not Reportable 08/12/18 21:44 Hyposegmented Neuts Not Reportable 08/12/18 21:44 Hypogranular Neuts Not Reportable 08/12/18 21:44 Not Reportable 08/12/18 21:44 Not Reportable 08/12/18 21:44 Not Reportable 08/12/18 21:44 Not Reportable 08/12/18 21:44 Not Reportable 08/12/18 21:44 Not Reportable 08/12/18 21:44 Consistent w auto 08/12/18 21:44 Not Reportable 08/12/18 21:44 Plt Clumps, EDTA Not Reportable 08/12/18 21:44 Not Reportable 08/12/18 21:44 Not Reportable 08/12/18 21:44 Not Reportable 08/12/18 21:44 Plt Morphology Comment Not Reportable 08/12/18 21:44 RBC Morphology Not Reportable 08/12/18 21:44 Dimorphic RBCs Not Reportable 08/12/18 21:44 Not Reportable 08/12/18 21:44 Not Reportable 08/12/18 21:44 Not Reportable 08/12/18 21:44 Few 08/12/18 21:44 Not Reportable 08/12/18 21:44 Not Reportable 08/12/18 21:44 Not Reportable 08/12/18 21:44 Not Reportable 08/12/18 21:44 Not Reportable 08/12/18 21:44 Not Reportable 08/12/18 21:44 Not Reportable 08/12/18 21:44 Few 08/12/18 21:44 Not Reportable 08/12/18 21:44 Not Reportable 08/12/18 21:44 Not Reportable 08/12/18 21:44 Not Reportable 08/12/18 21:44 Not Reportable 08/12/18 21:44 Not Reportable 08/12/18 21:44 Few 08/12/18 21:44 Acanthocytes (Spur) Not Reportable 08/12/18 21:44 Rouleaux Not Reportable 08/12/18 21:44 Not Reportable 08/12/18 21:44 Not Reportable 08/12/18 21:44 Not Reportable 08/12/18 21:44 Not Reportable 08/12/18 21:44 Hem Pathologist Commnt No 08/12/18 21:44 PT 16.5 Sec. (12.2-14.9) H 08/13/18 00:47 INR 1.25 (0.87-1.13) H 08/13/18 00:47 APTT 79.0 Sec. (24.2-36.6) H* 08/15/18 06:35 2742.50 ng/mlDDU (0-234) H 08/13/18 20:07 Heparin Anti-Xa Level 0.26 U.I./ml (0.3-0.7) L 08/16/18 20:01 POC ABG pH 7.464 (7.35-7.45) H 09/09/18 15:04 POC ABG pCO2 43.7 (35-45) 09/09/18 15:04 POC ABG pO2 109 (80-105) H 09/09/18 15:04 POC ABG HCO3 31.4 (22-26 mml/L) 09/09/18 15:04 POC ABG Total CO2 33 (23-27mmol/L) 09/09/18 15:04 POC ABG O2 Sat 98 09/09/18 15:04 POC ABG Base Excess 8 ((-2) - (+3)mmol/L) 09/09/18 15:04 35 % 09/09/18 15:04 Sodium 141 mmol/L (137-145) 09/08/18 04:22 Potassium 3.7 mmol/L (3.6-5.0) 09/08/18 04:22 Chloride 103.9 mmol/L (98-107) 09/08/18 04:22 Carbon Dioxide 26 mmol/L (22-30) 09/08/18 04:22 15 mmol/L 09/08/18 04:22 BUN 39 mg/dL (9-20) H 09/08/18 04:22 0.8 mg/dL (0.8-1.5) 09/08/18 04:22 Estimated GFR > 60 ml/min 09/08/18 04:22 49 % 09/08/18 04:22 Glucose 320 mg/dL (75-100) H 09/08/18 04:22 POC Glucose 233 (70-105) H 09/11/18 07:49 Lactic Acid 2.80 mmol/L (0.7-2.0) H* 08/13/18 12:53 Calcium 8.3 mg/dL (8.4-10.2) L 09/08/18 04:22 Phosphorus 3.90 mg/dL (2.5-4.5) 08/15/18 04:05 Magnesium 1.70 mg/dL (1.7-2.3) 09/06/18 14:35 < 0.20 mg/dL (0.1-1.2) 08/30/18 05:40 AST 50 units/L (5-40) H 08/30/18 05:40 ALT 31 units/L (7-56) 08/30/18 05:40 158 units/L (35-129) H 08/30/18 05:40 309 units/L (55-170) H 08/13/18 10:10 CK-MB (CK-2) 4.1 ng/mL (0.0-4.0) H 08/13/18 10:10 CK-MB (CK-2) Rel Index 1.3 (0-4) 08/13/18 10:10 0.409 ng/mL (0.00-0.029) H* 08/14/18 04:03 16.90 mg/dL (0.00-1.30) H 08/13/18 12:53 6.4 g/dL (6.3-8.2) 08/30/18 05:40 1.6 g/dL (3.9-5) L 08/30/18 05:40 0.3 % 08/30/18 05:40 Triglycerides 62 mg/dL (2-149) 08/13/18 00:32 Cholesterol 46 mg/dL (50-199) L 08/13/18 00:32 17 mg/dL (50-130) L 08/13/18 00:32 6 mg/dL (40-59) L 08/13/18 00:32 7.66 % 08/13/18 00:32 TSH 0.973 mlU/mL (0.270-4.200) 08/26/18 09:00 Free T4 0.51 ng/dL (0.76-1.46) L 08/26/18 09:00 Yellow (Yellow) 08/25/18 12:40 Turbid (Clear) 08/25/18 12:40 7.0 (5.0-7.0) 08/25/18 12:40 Ur Specific [place] 1.009 (1.003-1.030) 08/25/18 12:40 100 mg/dl mg/dL (Negative) 08/25/18 12:40 Neg mg/dL (Negative) 08/25/18 12:40 Neg mg/dL (Negative) 08/25/18 12:40 Mod (Negative) 08/25/18 12:40 Neg (Negative) 08/25/18 12:40 Neg (Negative) 08/25/18 12:40 < 2.0 mg/dL (<2.0) 08/25/18 12:40 Ur Leukocyte Esterase Lg (Negative) 08/25/18 12:40 > 182.0 /HPF (0.0-6.0) H 08/25/18 12:40 10.0 /HPF (0.0-6.0) 08/25/18 12:40 U Epithel Cells (Auto) 5.0 /HPF (0-13.0) 08/25/18 12:40 2+ /HPF (Negative) 08/13/18 00:50 3+ /HPF 08/25/18 12:40 None seen (None Seen) 08/14/18 17:20 60.9 mg/dL (0.1-20.0) H 08/14/18 17:20 32 mmol/L 08/14/18 17:20 64 mg/dL (5-11.8) H 08/14/18 17:20 Presumptive negative 08/12/18 21:30 Presumptive negative 08/12/18 21:30 Ur Barbiturates Screen Presumptive negative 08/12/18 21:30 Ur Phencyclidine Scrn Presumptive negative 08/12/18 21:30 Ur Amphetamines Screen Presumptive negative 08/12/18 21:30 U Benzodiazepines Scrn Presumptive negative 08/12/18 21:30 Presumptive negative 08/12/18 21:30 U Marijuana (THC) Screen Presumptive negative 08/12/18 21:30 Disclamer 08/12/18 21:30 Blood Type O POSITIVE 08/15/18 15:31 Antibody Screen Negative 08/15/18 15:31 Crossmatch See Detail 08/15/18 15:31 Active Medications - Current Medications Current Medications: Generic Name Dose Route Start Last Admin Trade Name Freq PRN Reason Stop Dose Admin Acetaminophen 650 mg 08/13/18 11:40 09/10/18 23:47 Tylenol PO 650 mg Q6H PRN Administration Fever >101 Amlodipine Besylate 5 mg 09/02/18 10:00 09/11/18 11:54 Norvasc FEEDTUBE 5 mg QDAY LENCHO Administration Lipase/Protease/Amylase 1 each 09/10/18 17:12 Pancregarrett Alas 10,500 Unit FEEDTUBE PRN PRN For Clogged Feeding Tube Aspirin 325 mg 08/17/18 10:00 09/11/18 11:56 Aspirin PO 325 mg QDAY LENCHO Administration Atorvastatin Calcium 40 mg 08/14/18 22:00 09/10/18 22:35 Lipitor PO 40 mg QHS LENCHO Administration Dextrose 50 ml 08/13/18 01:34 D50w (25gm) Syringe IV PRN PRN Hypoglycemia Enoxaparin Sodium 40 mg 08/17/18 22:00 09/10/18 22:35 Lovenox SUB-Q 40 mg QDAY@2200 LENCHO Administration Famotidine 20 mg 08/19/18 10:00 09/11/18 11:56 Pepcid PO 20 mg BID LENCHO Administration Hydralazine HCl 100 mg 09/02/18 09:00 09/11/18 06:35 Apresoline PO 100 mg Q8HR LENCHO Administration Hydralazine HCl 20 mg 09/02/18 08:16 Apresoline IV Q4HR PRN SBP>160 or DBP>110 Hydrophilic Ointment 1 applic 08/13/18 12:21 Vaseline Lip Therapy TP Q2HR PRN Dry Lips Insulin Glargine 45 units 09/08/18 22:00 09/10/18 22:35 Lantus SUB-Q 45 units QHS LENCHO Administration Insulin Human Lispro 0 unit 08/26/18 10:00 09/11/18 11:59 Humalog SUB-Q 1 unit Q4HR LENCHO Administration Protocol Levetiracetam 500 mg 08/27/18 22:00 09/11/18 11:54 Keppra PO 500 mg BID LENCHO Administration Multi-Ingred Cream/Lotion/Oil/Oint 1 applic 08/13/18 12:21 08/17/18 00:41 Artificial Tears Ophth Oint OU 1 applic Q4HR PRN Administration Dry Eye(s) Ondansetron HCl 4 mg 08/13/18 01:34 Zofran IV Q8H PRN Nausea And Vomiting Senna/Docusate Sodium 2 tab 09/07/18 14:00 09/11/18 11:55 Senokot S PO 2 tab DAILY LENCHO Administration Simple Syrup 15 ml 09/10/18 17:12 Simple Syrup FEEDTUBE PRN PRN Hypoglycemia Simple Syrup 30 ml 09/10/18 17:12 Simple Syrup FEEDTUBE PRN PRN Hypoglycemia Sodium Bicarbonate 325 mg 09/10/18 17:12 Sodium Bicarbonate FEEDTUBE PRN PRN For Clogged Feeding Tube Sodium Chloride 10 ml 08/13/18 10:00 09/11/18 11:57 Sodium Chloride Flush Syringe 10 Ml IV 10 ml BID LENCHO Administration Sodium Chloride 10 ml 08/13/18 01:34 08/30/18 22:29 Sodium Chloride Flush Syringe 10 Ml IV 10 ml PRN PRN Administration LINE FLUSH Nutrition/Malnutrition Assess - Dietary Evaluation Nutrition/Malnutrition Findings: Nutrition Notes Start: 08/13/18 15:41 Freq: Status: Active Protocol: Document 09/10/18 16:59 RM (Rec: 09/10/18 17:12 RM [id number]) Nutrition Notes Initial or Follow up Reassessment Current Diagnosis Acute Kidney Injury,Diabetes Other Pertinent Diagnosis Trach,Hx CVA,PEG, Sacral PU, Multiple PU, Anoxic brain injury,R pneumothorax Current Diet Vital 1.2 at 60 ml/hr Labs/Tests Na 141 (09/08/18) Pertinent Medications Reviewed Height 5 ft 8 in Weight 81.4 kg [place] Body Weight (kg) 70.00 BMI 27.3 Subjective/Other Information Observed Jevity 1.2 infusing at 60 ml/hr. Per nurse pt is tolerating TF. Percent of energy/protein needs met: 95%/92% Burn Absent Trauma Absent #1 Nutrition Diagnosis Inadequate oral intake Diagnosis Progress(for reassessment Continues documentation) Is patient on ventilator? No Is Patient Ambulatory and/or Out of Bed No REE-([facility]-confined to bed) [phone] Calculation Used for Recommendations [facility] Additional Notes Protein Needs: 87-122g (1.2-1. 5g/kg) Fluid Needs: 1 ml/kcal Nutrition Intervention Nutrition Support: Jevity 1.2 at 60 ml/hr. Water flush 100 mls q 4 hrs. Kcal 1,728 Protein (gm) 80 Fluid (mL) 1,162 Add Supplement/Snack (indicate name/kcal Magen BID /protein ) Provides kCal: 190 Provides Protein (gm) 5 Goal #1 Continue to meet at least 75% of calorie and protein needs via TF Anticipated Discharge Needs: Jevity 1.2 Follow-Up By: 09/16/18 Additional Comments Follow for TF tolerance
--- NOTE | 2018-09-11 14:16 | Progress Note ---
Assessment and Plan Acute hypoxemic respiratory failure on chronic. Status post cardiac arrest. Seizure disorder with breakthrough seizures. History of diabetes. History of cerebrovascular accident. Oropharyngeal dysphagia. History of seizures. - complete empiric diuresis - taper solumedrol and benadryl along with his pepcid for angioedema (improved) - continue to avoid sedatives - prn ABG's & CXR's at this point - continue Keppra for seizures with prn ativan IV for breakthrough (now dosed at 500mg IV bid) - continue provigil - continue bronchodilators with routine trach care and pulmonary hygiene per RT - neurology evaluation noted and input appreciated - continue GI & VTE prophylaxis - continue to wean supplemental oxygen to keep O2 sats 88-90% - Monitor renal indices closely - Avoid nephrotoxic agents, adjust all medications for CrCL - Strict intake and output monitoring - continue enteral nutrition as tolerated - continue accuchecks with glycemic control per SSI for target glucose of 140- 180 mg/dL (Lantus re-introduced) - Maintenance of sleep -wake cycle modalities - Mobility as tolerated by hemodynamics - Influenza and pneumonia vaccination per protocol - discharge planning ongoing concurrently .... care plan discussed at length with in room again today PROGNOSIS: GUARDED CODE STATUS: FULL CODE Subjective Date of service: 09/11/18 Principal diagnosis: Acute hypoxemic resp failure; S/P cardiac arrest; Seizures; DM II; H/O CVA Interval history: Patient is seen today for: Acute hypoxemic respiratory failure on chronic; Status post cardiac arrest; Seizure disorder with breakthrough seizures; History of diabetes; History of cerebrovascular accident; Oropharyngeal dysphagia; History of seizures. Seen and examined at bedside; 24hour events reviewed; nursing and respiratory care staff consulted; no adverse overnight events reported to me; resting peacefully in bed; AMS is persistent; tolerateing T-piece RTC now Objective Vital Signs - 12hr 09/11/18 09/11/18 09/11/18 04:35 08:11 12:13 Temperature 98.6 F 99.5 F 99.5 F Pulse Rate 96 H 98 H 100 H Respiratory 18 18 18 Rate Blood Pressure 143/63 167/77 146/70 O2 Sat by Pulse 94 98 93 Oximetry Constitutional: no acute distress, other (Elderly looking AAM, normocephalic resting in bed on MVS) Eyes: non-icteric, injected, other (+periorbital swelling) ENT: oropharynx moist Neck: supple, no lymphadenopathy, no JVD, other (s/p tracheostomy) Effort: mildly labored Ascultation: Bilateral: diminished breath sounds, rhonchi Percussion: Bilateral: not dull Cardiovascular: regular rate and rhythm Gastrointestinal: normoactive bowel sounds, soft, non-tender, non-distended Integumentary: normal Extremities: no cyanosis, pulses normal, no ischemia or petechiae, edema (trace ) Neurologic: unable to assess, other (slight pupillary constriction to light) Psychiatric: other (unable to assess) CBC and BMP: 09/13/18 07:06 09/13/18 07:06 ABG, PT/INR, D-dimer: ABG POC ABG pH 7.464 (7.35-7.45) H 09/09/18 15:04 POC ABG pCO2 43.7 (35-45) 09/09/18 15:04 POC ABG pO2 109 (80-105) H 09/09/18 15:04 POC ABG HCO3 31.4 (22-26 mml/L) 09/09/18 15:04 POC ABG Total CO2 33 (23-27mmol/L) 09/09/18 15:04 POC ABG O2 Sat 98 09/09/18 15:04 PT/INR, D-dimer PT 16.5 Sec. (12.2-14.9) H 08/13/18 00:47 INR 1.25 (0.87-1.13) H 08/13/18 00:47 2742.50 ng/mlDDU (0-234) H 08/13/18 20:07 Abnormal lab findings: Abnormal Labs 08/12/18 08/12/18 08/12/18 21:44 21:44 21:44 WBC 15.5 H RBC 3.12 L Hgb 8.8 L Hct 28.9 L MCV MCH MCHC 31 L RDW 19.5 H Lymph % (Auto) [place] % (Auto) Eos % (Auto) Lymph # [place] # Eos # Seg Neutrophils % Lymphocytes % (Manual) 48.0 H Seg Neutrophils # Lymphocytes # (Manual) 7.4 H PT 17.8 H INR 1.37 H APTT D-Dimer Heparin Anti-Xa Level POC ABG pH POC ABG pCO2 POC ABG pO2 Sodium 159 H Potassium Chloride 118.5 H Carbon Dioxide BUN 34 H Creatinine Glucose 161 H POC Glucose Lactic Acid Calcium Magnesium AST Alkaline Phosphatase Total Creatine Kinase CK-MB (CK-2) Troponin T 0.105 H* C-Reactive Protein Total Protein Albumin Cholesterol LDL Cholesterol Direct HDL Cholesterol Free T4 Urine WBC (Auto) Urine Creatinine Urine Total Protein Crossmatch 08/13/18 08/13/18 08/13/18 00:32 00:47 00:47 WBC RBC Hgb 9.2 L Hct 29.6 L MCV MCH MCHC RDW Lymph % (Auto) [place] % (Auto) Eos % (Auto) Lymph # [place] # Eos # Seg Neutrophils % Lymphocytes % (Manual) Seg Neutrophils # Lymphocytes # (Manual) PT 16.5 H INR 1.25 H APTT 37.3 H D-Dimer Heparin Anti-Xa Level POC ABG pH POC ABG pCO2 POC ABG pO2 Sodium Potassium Chloride Carbon Dioxide BUN Creatinine Glucose POC Glucose Lactic Acid Calcium Magnesium AST Alkaline Phosphatase Total Creatine Kinase 211 H CK-MB (CK-2) 7.7 H Troponin T 0.169 H* D C-Reactive Protein Total Protein Albumin Cholesterol 46 L LDL Cholesterol Direct 17 L HDL Cholesterol 6 L Free T4 Urine WBC (Auto) Urine Creatinine Urine Total Protein Crossmatch 08/13/18 08/13/18 08/13/18 00:50 02:25 05:34 WBC RBC Hgb Hct MCV MCH MCHC RDW Lymph % (Auto) [place] % (Auto) Eos % (Auto) Lymph # [place] # Eos # Seg Neutrophils % Lymphocytes % (Manual) Seg Neutrophils # Lymphocytes # (Manual) PT INR APTT D-Dimer Heparin Anti-Xa Level POC ABG pH 7.503 H POC ABG pCO2 POC ABG pO2 253 H Sodium Potassium Chloride Carbon Dioxide BUN Creatinine Glucose POC Glucose Lactic Acid Calcium Magnesium AST Alkaline Phosphatase Total Creatine Kinase 311 H CK-MB (CK-2) 10.4 H Troponin T 0.283 H* D C-Reactive Protein Total Protein Albumin Cholesterol LDL Cholesterol Direct HDL Cholesterol Free T4 Urine WBC (Auto) > 182.0 H Urine Creatinine Urine Total Protein Crossmatch 08/13/18 08/13/18 08/13/18 06:35 10:10 10:10 WBC RBC Hgb Hct MCV MCH MCHC RDW Lymph % (Auto) [place] % (Auto) Eos % (Auto) Lymph # [place] # Eos # Seg Neutrophils % Lymphocytes % (Manual) Seg Neutrophils # Lymphocytes # (Manual) PT INR APTT D-Dimer Heparin Anti-Xa Level POC ABG pH 7.554 H POC ABG pCO2 33.5 L POC ABG pO2 220 H Sodium 158 H Potassium Chloride 117.1 H Carbon Dioxide BUN 53 H Creatinine 2.0 H Glucose 247 H POC Glucose Lactic Acid Calcium 8.2 L Magnesium AST Alkaline Phosphatase Total Creatine Kinase 309 H CK-MB (CK-2) 4.1 H Troponin T 0.470 H* D C-Reactive Protein Total Protein Albumin Cholesterol LDL Cholesterol Direct HDL Cholesterol Free T4 Urine WBC (Auto) Urine Creatinine Urine Total Protein Crossmatch 08/13/18 08/13/18 08/13/18 12:53 12:53 17:55 WBC RBC Hgb Hct MCV MCH MCHC RDW Lymph % (Auto) [place] % (Auto) Eos % (Auto) Lymph # [place] # Eos # Seg Neutrophils % Lymphocytes % (Manual) Seg Neutrophils # Lymphocytes # (Manual) PT INR APTT D-Dimer Heparin Anti-Xa Level POC ABG pH POC ABG pCO2 POC ABG pO2 Sodium Potassium Chloride Carbon Dioxide BUN Creatinine Glucose POC Glucose 308 H Lactic Acid 2.80 H* Calcium Magnesium 2.50 H AST Alkaline Phosphatase Total Creatine Kinase CK-MB (CK-2) Troponin T C-Reactive Protein 16.90 H Total Protein Albumin Cholesterol LDL Cholesterol Direct HDL Cholesterol Free T4 Urine WBC (Auto) Urine Creatinine Urine Total Protein Crossmatch 08/13/18 08/13/18 08/13/18 20:07 21:16 23:17 WBC RBC Hgb Hct MCV MCH MCHC RDW Lymph % (Auto) [place] % (Auto) Eos % (Auto) Lymph # [place] # Eos # Seg Neutrophils % Lymphocytes % (Manual) Seg Neutrophils # Lymphocytes # (Manual) PT INR APTT D-Dimer 2742.50 H Heparin Anti-Xa Level POC ABG pH 7.483 H POC ABG pCO2 30.8 L POC ABG pO2 150 H Sodium Potassium Chloride Carbon Dioxide BUN Creatinine Glucose POC Glucose 245 H Lactic Acid Calcium Magnesium AST Alkaline Phosphatase Total Creatine Kinase CK-MB (CK-2) Troponin T C-Reactive Protein Total Protein Albumin Cholesterol LDL Cholesterol Direct HDL Cholesterol Free T4 Urine WBC (Auto) Urine Creatinine Urine Total Protein Crossmatch 08/14/18 08/14/18 08/14/18 04:03 04:03 04:56 WBC 18.2 H RBC 2.62 L Hgb 7.3 L Hct 24.5 L MCV MCH MCHC RDW 18.9 H Lymph % (Auto) [place] % (Auto) Eos % (Auto) Lymph # [place] # 1.2 H Eos # Seg Neutrophils % 79.4 H Lymphocytes % (Manual) Seg Neutrophils # 14.5 H Lymphocytes # (Manual) PT INR APTT D-Dimer Heparin Anti-Xa Level POC ABG pH POC ABG pCO2 33.5 L POC ABG pO2 153 H Sodium 152 H Potassium 3.4 L Chloride 113.8 H Carbon Dioxide BUN 72 H Creatinine 2.7 H Glucose 239 H POC Glucose Lactic Acid Calcium 7.6 L Magnesium AST 50 H Alkaline Phosphatase 219 H Total Creatine Kinase CK-MB (CK-2) Troponin T 0.409 H* C-Reactive Protein Total Protein 6.2 L Albumin 1.9 L Cholesterol LDL Cholesterol Direct HDL Cholesterol Free T4 Urine WBC (Auto) Urine Creatinine Urine Total Protein Crossmatch 08/14/18 08/14/18 08/14/18 05:18 13:38 15:35 WBC RBC Hgb Hct MCV MCH MCHC RDW Lymph % (Auto) [place] % (Auto) Eos % (Auto) Lymph # [place] # Eos # Seg Neutrophils % Lymphocytes % (Manual) Seg Neutrophils # Lymphocytes # (Manual) PT INR APTT D-Dimer Heparin Anti-Xa Level POC ABG pH POC ABG pCO2 POC ABG pO2 Sodium 150 H Potassium 3.2 L Chloride 114.5 H Carbon Dioxide BUN 69 H Creatinine 2.3 H Glucose 247 H POC Glucose 242 H 296 H Lactic Acid Calcium 7.2 L Magnesium AST Alkaline Phosphatase Total Creatine Kinase CK-MB (CK-2) Troponin T C-Reactive Protein Total Protein Albumin Cholesterol LDL Cholesterol Direct HDL Cholesterol Free T4 Urine WBC (Auto) Urine Creatinine Urine Total Protein Crossmatch 08/14/18 08/14/18 08/14/18 17:01 17:20 23:47 WBC RBC Hgb Hct MCV MCH MCHC RDW Lymph % (Auto) [place] % (Auto) Eos % (Auto) Lymph # [place] # Eos # Seg Neutrophils % Lymphocytes % (Manual) Seg Neutrophils # Lymphocytes # (Manual) PT INR APTT D-Dimer Heparin Anti-Xa Level POC ABG pH POC ABG pCO2 POC ABG pO2 Sodium Potassium Chloride Carbon Dioxide BUN Creatinine Glucose POC Glucose 261 H 280 H Lactic Acid Calcium Magnesium AST Alkaline Phosphatase Total Creatine Kinase CK-MB (CK-2) Troponin T C-Reactive Protein Total Protein Albumin Cholesterol LDL Cholesterol Direct HDL Cholesterol Free T4 Urine WBC (Auto) Urine Creatinine 60.9 H Urine Total Protein 64 H Crossmatch 08/15/18 08/15/18 08/15/18 04:05 04:05 04:05 WBC RBC Hgb 6.3 L Hct 19.7 L* MCV MCH MCHC RDW Lymph % (Auto) [place] % (Auto) Eos % (Auto) Lymph # [place] # Eos # Seg Neutrophils % Lymphocytes % (Manual) Seg Neutrophils # Lymphocytes # (Manual) PT INR APTT D-Dimer Heparin Anti-Xa Level 0.17 L POC ABG pH POC ABG pCO2 POC ABG pO2 Sodium 146 H Potassium 3.0 L Chloride 110.6 H Carbon Dioxide BUN 64 H Creatinine 2.2 H Glucose 231 H POC Glucose Lactic Acid Calcium 7.1 L Magnesium AST Alkaline Phosphatase Total Creatine Kinase CK-MB (CK-2) Troponin T C-Reactive Protein Total Protein Albumin Cholesterol LDL Cholesterol Direct HDL Cholesterol Free T4 Urine WBC (Auto) Urine Creatinine Urine Total Protein Crossmatch 08/15/18 08/15/18 08/15/18 05:21 05:26 06:35 WBC RBC Hgb Hct MCV MCH MCHC RDW Lymph % (Auto) [place] % (Auto) Eos % (Auto) Lymph # [place] # Eos # Seg Neutrophils % Lymphocytes % (Manual) Seg Neutrophils # Lymphocytes # (Manual) PT INR APTT 79.0 H* D-Dimer Heparin Anti-Xa Level POC ABG pH 7.494 H POC ABG pCO2 POC ABG pO2 155 H Sodium Potassium Chloride Carbon Dioxide BUN Creatinine Glucose POC Glucose 271 H Lactic Acid Calcium Magnesium AST Alkaline Phosphatase Total Creatine Kinase CK-MB (CK-2) Troponin T C-Reactive Protein Total Protein Albumin Cholesterol LDL Cholesterol Direct HDL Cholesterol Free T4 Urine WBC (Auto) Urine Creatinine Urine Total Protein Crossmatch 08/15/18 08/15/18 08/15/18 12:10 15:31 17:27 WBC RBC Hgb Hct MCV MCH MCHC RDW Lymph % (Auto) [place] % (Auto) Eos % (Auto) Lymph # [place] # Eos # Seg Neutrophils % Lymphocytes % (Manual) Seg Neutrophils # Lymphocytes # (Manual) PT INR APTT D-Dimer Heparin Anti-Xa Level POC ABG pH POC ABG pCO2 POC ABG pO2 Sodium Potassium Chloride Carbon Dioxide BUN Creatinine Glucose POC Glucose 301 H 287 H Lactic Acid Calcium Magnesium AST Alkaline Phosphatase Total Creatine Kinase CK-MB (CK-2) Troponin T C-Reactive Protein Total Protein Albumin Cholesterol LDL Cholesterol Direct HDL Cholesterol Free T4 Urine WBC (Auto) Urine Creatinine Urine Total Protein Crossmatch See Detail 08/15/18 08/15/18 08/16/18 21:41 23:45 04:13 WBC RBC Hgb Hct MCV MCH MCHC RDW Lymph % (Auto) [place] % (Auto) Eos % (Auto) Lymph # [place] # Eos # Seg Neutrophils % Lymphocytes % (Manual) Seg Neutrophils # Lymphocytes # (Manual) PT INR APTT D-Dimer Heparin Anti-Xa Level 0.19 L POC ABG pH POC ABG pCO2 32.1 L POC ABG pO2 107 H Sodium Potassium Chloride Carbon Dioxide BUN Creatinine Glucose POC Glucose 163 H Lactic Acid Calcium Magnesium AST Alkaline Phosphatase Total Creatine Kinase CK-MB (CK-2) Troponin T C-Reactive Protein Total Protein Albumin Cholesterol LDL Cholesterol Direct HDL Cholesterol Free T4 Urine WBC (Auto) Urine Creatinine Urine Total Protein Crossmatch 08/16/18 08/16/18 08/16/18 04:50 05:28 11:30 WBC RBC 2.67 L Hgb 8.1 L Hct 23.4 L MCV MCH MCHC 35 H RDW 18.3 H Lymph % (Auto) [place] % (Auto) Eos % (Auto) Lymph # [place] # Eos # Seg Neutrophils % Lymphocytes % (Manual) Seg Neutrophils # Lymphocytes # (Manual) PT INR APTT D-Dimer Heparin Anti-Xa Level 0.19 L POC ABG pH POC ABG pCO2 POC ABG pO2 Sodium Potassium Chloride Carbon Dioxide BUN Creatinine Glucose POC Glucose 141 H Lactic Acid Calcium Magnesium AST Alkaline Phosphatase Total Creatine Kinase CK-MB (CK-2) Troponin T C-Reactive Protein Total Protein Albumin Cholesterol LDL Cholesterol Direct HDL Cholesterol Free T4 Urine WBC (Auto) Urine Creatinine Urine Total Protein Crossmatch 08/16/18 08/16/18 08/16/18 11:30 12:00 12:01 WBC RBC Hgb Hct MCV MCH MCHC RDW Lymph % (Auto) [place] % (Auto) Eos % (Auto) Lymph # [place] # Eos # Seg Neutrophils % Lymphocytes % (Manual) Seg Neutrophils # Lymphocytes # (Manual) PT INR APTT D-Dimer Heparin Anti-Xa Level 0.15 L POC ABG pH POC ABG pCO2 POC ABG pO2 Sodium Potassium Chloride 107.8 H Carbon Dioxide 21 L BUN 47 H Creatinine 1.6 H Glucose 221 H POC Glucose 267 H Lactic Acid Calcium 6.9 L Magnesium AST Alkaline Phosphatase Total Creatine Kinase CK-MB (CK-2) Troponin T C-Reactive Protein Total Protein Albumin Cholesterol LDL Cholesterol Direct HDL Cholesterol Free T4 Urine WBC (Auto) Urine Creatinine Urine Total Protein Crossmatch 08/16/18 08/16/18 08/16/18 17:23 20:01 23:13 WBC RBC Hgb Hct MCV MCH MCHC RDW Lymph % (Auto) [place] % (Auto) Eos % (Auto) Lymph # [place] # Eos # Seg Neutrophils % Lymphocytes % (Manual) Seg Neutrophils # Lymphocytes # (Manual) PT INR APTT D-Dimer Heparin Anti-Xa Level 0.26 L POC ABG pH POC ABG pCO2 POC ABG pO2 Sodium Potassium Chloride Carbon Dioxide BUN Creatinine Glucose POC Glucose 245 H 256 H Lactic Acid Calcium Magnesium AST Alkaline Phosphatase Total Creatine Kinase CK-MB (CK-2) Troponin T C-Reactive Protein Total Protein Albumin Cholesterol LDL Cholesterol Direct HDL Cholesterol Free T4 Urine WBC (Auto) Urine Creatinine Urine Total Protein Crossmatch 08/17/18 08/17/18 08/17/18 04:29 04:55 05:34 WBC RBC Hgb 8.2 L Hct 24.3 L MCV MCH MCHC RDW Lymph % (Auto) [place] % (Auto) Eos % (Auto) Lymph # [place] # Eos # Seg Neutrophils % Lymphocytes % (Manual) Seg Neutrophils # Lymphocytes # (Manual) PT INR APTT D-Dimer Heparin Anti-Xa Level POC ABG pH POC ABG pCO2 32.4 L POC ABG pO2 108 H Sodium Potassium Chloride Carbon Dioxide BUN Creatinine Glucose POC Glucose 268 H Lactic Acid Calcium Magnesium AST Alkaline Phosphatase Total Creatine Kinase CK-MB (CK-2) Troponin T C-Reactive Protein Total Protein Albumin Cholesterol LDL Cholesterol Direct HDL Cholesterol Free T4 Urine WBC (Auto) Urine Creatinine Urine Total Protein Crossmatch 08/17/18 08/17/18 08/17/18 11:54 13:44 17:24 WBC RBC Hgb Hct MCV MCH MCHC RDW Lymph % (Auto) [place] % (Auto) Eos % (Auto) Lymph # [place] # Eos # Seg Neutrophils % Lymphocytes % (Manual) Seg Neutrophils # Lymphocytes # (Manual) PT INR APTT D-Dimer Heparin Anti-Xa Level POC ABG pH POC ABG pCO2 32.7 L POC ABG pO2 142 H Sodium Potassium Chloride Carbon Dioxide BUN Creatinine Glucose POC Glucose 295 H 283 H Lactic Acid Calcium Magnesium AST Alkaline Phosphatase Total Creatine Kinase CK-MB (CK-2) Troponin T C-Reactive Protein Total Protein Albumin Cholesterol LDL Cholesterol Direct HDL Cholesterol Free T4 Urine WBC (Auto) Urine Creatinine Urine Total Protein Crossmatch 08/18/18 08/18/18 08/18/18 00:05 00:59 04:15 WBC RBC Hgb Hct MCV MCH MCHC RDW Lymph % (Auto) [place] % (Auto) Eos % (Auto) Lymph # [place] # Eos # Seg Neutrophils % Lymphocytes % (Manual) Seg Neutrophils # Lymphocytes # (Manual) PT INR APTT D-Dimer Heparin Anti-Xa Level POC ABG pH POC ABG pCO2 POC ABG pO2 115 H Sodium Potassium Chloride Carbon Dioxide BUN Creatinine Glucose POC Glucose 247 H 251 H Lactic Acid Calcium Magnesium AST Alkaline Phosphatase Total Creatine Kinase CK-MB (CK-2) Troponin T C-Reactive Protein Total Protein Albumin Cholesterol LDL Cholesterol Direct HDL Cholesterol Free T4 Urine WBC (Auto) Urine Creatinine Urine Total Protein Crossmatch 08/18/18 08/18/18 08/18/18 05:02 12:20 17:51 WBC RBC Hgb Hct MCV MCH MCHC RDW Lymph % (Auto) [place] % (Auto) Eos % (Auto) Lymph # [place] # Eos # Seg Neutrophils % Lymphocytes % (Manual) Seg Neutrophils # Lymphocytes # (Manual) PT INR APTT D-Dimer Heparin Anti-Xa Level POC ABG pH POC ABG pCO2 POC ABG pO2 Sodium Potassium Chloride Carbon Dioxide BUN Creatinine Glucose POC Glucose 282 H 209 H 261 H Lactic Acid Calcium Magnesium AST Alkaline Phosphatase Total Creatine Kinase CK-MB (CK-2) Troponin T C-Reactive Protein Total Protein Albumin Cholesterol LDL Cholesterol Direct HDL Cholesterol Free T4 Urine WBC (Auto) Urine Creatinine Urine Total Protein Crossmatch 08/18/18 08/19/18 08/19/18 23:30 04:54 05:16 WBC RBC 2.62 L Hgb 7.5 L Hct 23.1 L MCV MCH MCHC RDW 18.1 H Lymph % (Auto) [place] % (Auto) Eos % (Auto) Lymph # [place] # Eos # Seg Neutrophils % Lymphocytes % (Manual) Seg Neutrophils # Lymphocytes # (Manual) PT INR APTT D-Dimer Heparin Anti-Xa Level POC ABG pH POC ABG pCO2 POC ABG pO2 58 L Sodium Potassium Chloride Carbon Dioxide BUN Creatinine Glucose POC Glucose 231 H Lactic Acid Calcium Magnesium AST Alkaline Phosphatase Total Creatine Kinase CK-MB (CK-2) Troponin T C-Reactive Protein Total Protein Albumin Cholesterol LDL Cholesterol Direct HDL Cholesterol Free T4 Urine WBC (Auto) Urine Creatinine Urine Total Protein Crossmatch 08/19/18 08/19/18 08/19/18 05:16 05:40 11:56 WBC RBC Hgb Hct MCV MCH MCHC RDW Lymph % (Auto) [place] % (Auto) Eos % (Auto) Lymph # [place] # Eos # Seg Neutrophils % Lymphocytes % (Manual) Seg Neutrophils # Lymphocytes # (Manual) PT INR APTT D-Dimer Heparin Anti-Xa Level POC ABG pH POC ABG pCO2 POC ABG pO2 Sodium 152 H D Potassium Chloride 118.7 H Carbon Dioxide BUN 38 H Creatinine Glucose 220 H POC Glucose 227 H 213 H Lactic Acid Calcium 8.1 L D Magnesium AST Alkaline Phosphatase Total Creatine Kinase CK-MB (CK-2) Troponin T C-Reactive Protein Total Protein Albumin Cholesterol LDL Cholesterol Direct HDL Cholesterol Free T4 Urine WBC (Auto) Urine Creatinine Urine Total Protein Crossmatch 08/19/18 08/19/18 08/20/18 18:37 23:32 04:38 WBC RBC Hgb Hct MCV MCH MCHC RDW Lymph % (Auto) [place] % (Auto) Eos % (Auto) Lymph # [place] # Eos # Seg Neutrophils % Lymphocytes % (Manual) Seg Neutrophils # Lymphocytes # (Manual) PT INR APTT D-Dimer Heparin Anti-Xa Level POC ABG pH POC ABG pCO2 POC ABG pO2 140 H Sodium Potassium Chloride Carbon Dioxide BUN Creatinine Glucose POC Glucose 227 H 245 H Lactic Acid Calcium Magnesium AST Alkaline Phosphatase Total Creatine Kinase CK-MB (CK-2) Troponin T C-Reactive Protein Total Protein Albumin Cholesterol LDL Cholesterol Direct HDL Cholesterol Free T4 Urine WBC (Auto) Urine Creatinine Urine Total Protein Crossmatch 08/20/18 08/20/18 08/20/18 05:31 05:37 05:37 WBC RBC 2.60 L Hgb 7.5 L Hct 22.9 L MCV MCH MCHC RDW 18.4 H Lymph % (Auto) [place] % (Auto) Eos % (Auto) Lymph # [place] # Eos # Seg Neutrophils % Lymphocytes % (Manual) Seg Neutrophils # Lymphocytes # (Manual) PT INR APTT D-Dimer Heparin Anti-Xa Level POC ABG pH POC ABG pCO2 POC ABG pO2 Sodium 150 H Potassium Chloride 115.6 H Carbon Dioxide BUN 38 H Creatinine Glucose 276 H POC Glucose 266 H Lactic Acid Calcium 7.9 L Magnesium AST Alkaline Phosphatase Total Creatine Kinase CK-MB (CK-2) Troponin T C-Reactive Protein Total Protein Albumin Cholesterol LDL Cholesterol Direct HDL Cholesterol Free T4 Urine WBC (Auto) Urine Creatinine Urine Total Protein Crossmatch 08/20/18 08/20/18 08/20/18 14:01 18:20 23:11 WBC RBC Hgb Hct MCV MCH MCHC RDW Lymph % (Auto) [place] % (Auto) Eos % (Auto) Lymph # [place] # Eos # Seg Neutrophils % Lymphocytes % (Manual) Seg Neutrophils # Lymphocytes # (Manual) PT INR APTT D-Dimer Heparin Anti-Xa Level POC ABG pH POC ABG pCO2 POC ABG pO2 Sodium Potassium Chloride Carbon Dioxide BUN Creatinine Glucose POC Glucose 305 H 271 H 218 H Lactic Acid Calcium Magnesium AST Alkaline Phosphatase Total Creatine Kinase CK-MB (CK-2) Troponin T C-Reactive Protein Total Protein Albumin Cholesterol LDL Cholesterol Direct HDL Cholesterol Free T4 Urine WBC (Auto) Urine Creatinine Urine Total Protein Crossmatch 08/21/18 08/21/18 08/21/18 04:41 04:41 06:20 WBC RBC 2.65 L Hgb 7.6 L Hct 23.3 L MCV MCH MCHC RDW 19.1 H Lymph % (Auto) [place] % (Auto) Eos % (Auto) Lymph # [place] # Eos # Seg Neutrophils % Lymphocytes % (Manual) Seg Neutrophils # Lymphocytes # (Manual) PT INR APTT D-Dimer Heparin Anti-Xa Level POC ABG pH POC ABG pCO2 POC ABG pO2 Sodium 150 H Potassium Chloride 117.8 H Carbon Dioxide BUN 37 H Creatinine Glucose 233 H POC Glucose 262 H Lactic Acid Calcium 7.9 L Magnesium AST Alkaline Phosphatase Total Creatine Kinase CK-MB (CK-2) Troponin T C-Reactive Protein Total Protein Albumin Cholesterol LDL Cholesterol Direct HDL Cholesterol Free T4 Urine WBC (Auto) Urine Creatinine Urine Total Protein Crossmatch 08/21/18 08/21/18 08/21/18 10:18 12:04 12:36 WBC RBC Hgb Hct MCV MCH MCHC RDW Lymph % (Auto) [place] % (Auto) Eos % (Auto) Lymph # [place] # Eos # Seg Neutrophils % Lymphocytes % (Manual) Seg Neutrophils # Lymphocytes # (Manual) PT INR APTT D-Dimer Heparin Anti-Xa Level POC ABG pH POC ABG pCO2 POC ABG pO2 Sodium Potassium Chloride Carbon Dioxide BUN Creatinine Glucose POC Glucose 256 H 245 H 255 H Lactic Acid Calcium Magnesium AST Alkaline Phosphatase Total Creatine Kinase CK-MB (CK-2) Troponin T C-Reactive Protein Total Protein Albumin Cholesterol LDL Cholesterol Direct HDL Cholesterol Free T4 Urine WBC (Auto) Urine Creatinine Urine Total Protein Crossmatch 08/21/18 08/21/18 08/22/18 17:36 23:29 05:01 WBC RBC Hgb Hct MCV MCH MCHC RDW Lymph % (Auto) [place] % (Auto) Eos % (Auto) Lymph # [place] # Eos # Seg Neutrophils % Lymphocytes % (Manual) Seg Neutrophils # Lymphocytes # (Manual) PT INR APTT D-Dimer Heparin Anti-Xa Level POC ABG pH 7.466 H POC ABG pCO2 33.8 L POC ABG pO2 111 H Sodium Potassium Chloride Carbon Dioxide BUN Creatinine Glucose POC Glucose 263 H 268 H Lactic Acid Calcium Magnesium AST Alkaline Phosphatase Total Creatine Kinase CK-MB (CK-2) Troponin T C-Reactive Protein Total Protein Albumin Cholesterol LDL Cholesterol Direct HDL Cholesterol Free T4 Urine WBC (Auto) Urine Creatinine Urine Total Protein Crossmatch 08/22/18 08/22/18 08/22/18 05:05 12:05 12:15 WBC RBC Hgb Hct MCV MCH MCHC RDW Lymph % (Auto) [place] % (Auto) Eos % (Auto) Lymph # [place] # Eos # Seg Neutrophils % Lymphocytes % (Manual) Seg Neutrophils # Lymphocytes # (Manual) PT INR APTT D-Dimer Heparin Anti-Xa Level POC ABG pH POC ABG pCO2 POC ABG pO2 Sodium 147 H Potassium Chloride 113.2 H Carbon Dioxide BUN 36 H Creatinine Glucose 249 H POC Glucose 256 H 228 H Lactic Acid Calcium 8.2 L Magnesium AST Alkaline Phosphatase Total Creatine Kinase CK-MB (CK-2) Troponin T C-Reactive Protein Total Protein Albumin Cholesterol LDL Cholesterol Direct HDL Cholesterol Free T4 Urine WBC (Auto) Urine Creatinine Urine Total Protein Crossmatch 08/22/18 08/23/18 08/23/18 17:30 00:03 05:05 WBC RBC Hgb Hct MCV MCH MCHC RDW Lymph % (Auto) [place] % (Auto) Eos % (Auto) Lymph # [place] # Eos # Seg Neutrophils % Lymphocytes % (Manual) Seg Neutrophils # Lymphocytes # (Manual) PT INR APTT D-Dimer Heparin Anti-Xa Level POC ABG pH POC ABG pCO2 POC ABG pO2 Sodium Potassium Chloride Carbon Dioxide BUN Creatinine Glucose POC Glucose 291 H 259 H 247 H Lactic Acid Calcium Magnesium AST Alkaline Phosphatase Total Creatine Kinase CK-MB (CK-2) Troponin T C-Reactive Protein Total Protein Albumin Cholesterol LDL Cholesterol Direct HDL Cholesterol Free T4 Urine WBC (Auto) Urine Creatinine Urine Total Protein Crossmatch 08/23/18 08/23/18 08/23/18 05:14 12:29 17:21 WBC RBC Hgb Hct MCV MCH MCHC RDW Lymph % (Auto) [place] % (Auto) Eos % (Auto) Lymph # [place] # Eos # Seg Neutrophils % Lymphocytes % (Manual) Seg Neutrophils # Lymphocytes # (Manual) PT INR APTT D-Dimer Heparin Anti-Xa Level POC ABG pH POC ABG pCO2 POC ABG pO2 Sodium Potassium Chloride Carbon Dioxide BUN Creatinine Glucose POC Glucose 208 H 138 H 175 H Lactic Acid Calcium Magnesium AST Alkaline Phosphatase Total Creatine Kinase CK-MB (CK-2) Troponin T C-Reactive Protein Total Protein Albumin Cholesterol LDL Cholesterol Direct HDL Cholesterol Free T4 Urine WBC (Auto) Urine Creatinine Urine Total Protein Crossmatch 08/23/18 08/24/18 08/24/18 23:36 01:00 05:50 WBC RBC 2.92 L 2.90 L Hgb 8.3 L 8.2 L Hct 25.4 L 25.2 L MCV MCH MCHC RDW 18.9 H 18.6 H Lymph % (Auto) [place] % (Auto) 9.2 H Eos % (Auto) Lymph # [place] # Eos # Seg Neutrophils % Lymphocytes % (Manual) Seg Neutrophils # Lymphocytes # (Manual) PT INR APTT D-Dimer Heparin Anti-Xa Level POC ABG pH POC ABG pCO2 POC ABG pO2 Sodium Potassium Chloride Carbon Dioxide BUN Creatinine Glucose POC Glucose 163 H Lactic Acid Calcium Magnesium AST Alkaline Phosphatase Total Creatine Kinase CK-MB (CK-2) Troponin T C-Reactive Protein Total Protein Albumin Cholesterol LDL Cholesterol Direct HDL Cholesterol Free T4 Urine WBC (Auto) Urine Creatinine Urine Total Protein Crossmatch 08/24/18 08/24/18 08/24/18 05:50 12:26 18:37 WBC RBC Hgb Hct MCV MCH MCHC RDW Lymph % (Auto) [place] % (Auto) Eos % (Auto) Lymph # [place] # Eos # Seg Neutrophils % Lymphocytes % (Manual) Seg Neutrophils # Lymphocytes # (Manual) PT INR APTT D-Dimer Heparin Anti-Xa Level POC ABG pH POC ABG pCO2 POC ABG pO2 Sodium 147 H Potassium Chloride 113.6 H Carbon Dioxide BUN 33 H Creatinine Glucose 210 H POC Glucose 223 H 166 H Lactic Acid Calcium 8.3 L Magnesium AST Alkaline Phosphatase Total Creatine Kinase CK-MB (CK-2) Troponin T C-Reactive Protein Total Protein Albumin Cholesterol LDL Cholesterol Direct HDL Cholesterol Free T4 Urine WBC (Auto) Urine Creatinine Urine Total Protein Crossmatch 08/24/18 08/25/18 08/25/18 23:47 04:55 04:55 WBC RBC 2.94 L Hgb 8.4 L Hct 25.1 L MCV MCH MCHC RDW 18.2 H Lymph % (Auto) [place] % (Auto) Eos % (Auto) Lymph # [place] # Eos # Seg Neutrophils % Lymphocytes % (Manual) Seg Neutrophils # Lymphocytes # (Manual) PT INR APTT D-Dimer Heparin Anti-Xa Level POC ABG pH POC ABG pCO2 POC ABG pO2 Sodium Potassium Chloride 110.2 H Carbon Dioxide BUN 30 H Creatinine Glucose POC Glucose 126 H Lactic Acid Calcium 8.1 L Magnesium AST Alkaline Phosphatase Total Creatine Kinase CK-MB (CK-2) Troponin T C-Reactive Protein Total Protein Albumin Cholesterol LDL Cholesterol Direct HDL Cholesterol Free T4 Urine WBC (Auto) Urine Creatinine Urine Total Protein Crossmatch 08/25/18 08/26/18 08/26/18 12:40 04:39 04:39 WBC RBC 2.96 L Hgb 8.3 L Hct 25.7 L MCV MCH MCHC RDW 18.2 H Lymph % (Auto) 10.5 L [place] % (Auto) 9.3 H Eos % (Auto) Lymph # 0.8 L [place] # Eos # Seg Neutrophils % 77.0 H Lymphocytes % (Manual) Seg Neutrophils # Lymphocytes # (Manual) PT INR APTT D-Dimer Heparin Anti-Xa Level POC ABG pH POC ABG pCO2 POC ABG pO2 Sodium 147 H Potassium Chloride 113.5 H Carbon Dioxide BUN 27 H Creatinine 0.7 L Glucose 106 H POC Glucose Lactic Acid Calcium 8.0 L Magnesium AST Alkaline Phosphatase Total Creatine Kinase CK-MB (CK-2) Troponin T C-Reactive Protein Total Protein Albumin Cholesterol LDL Cholesterol Direct HDL Cholesterol Free T4 Urine WBC (Auto) > 182.0 H Urine Creatinine Urine Total Protein Crossmatch 08/26/18 08/26/18 08/26/18 05:27 09:00 09:54 WBC RBC Hgb Hct MCV MCH MCHC RDW Lymph % (Auto) [place] % (Auto) Eos % (Auto) Lymph # [place] # Eos # Seg Neutrophils % Lymphocytes % (Manual) Seg Neutrophils # Lymphocytes # (Manual) PT INR APTT D-Dimer Heparin Anti-Xa Level POC ABG pH POC ABG pCO2 POC ABG pO2 Sodium Potassium Chloride Carbon Dioxide BUN Creatinine Glucose POC Glucose 120 H 170 H Lactic Acid Calcium Magnesium AST Alkaline Phosphatase Total Creatine Kinase CK-MB (CK-2) Troponin T C-Reactive Protein Total Protein Albumin Cholesterol LDL Cholesterol Direct HDL Cholesterol Free T4 0.51 L Urine WBC (Auto) Urine Creatinine Urine Total Protein Crossmatch 08/26/18 08/26/18 08/27/18 14:52 17:50 06:30 WBC RBC Hgb Hct MCV MCH MCHC RDW Lymph % (Auto) [place] % (Auto) Eos % (Auto) Lymph # [place] # Eos # Seg Neutrophils % Lymphocytes % (Manual) Seg Neutrophils # Lymphocytes # (Manual) PT INR APTT D-Dimer Heparin Anti-Xa Level POC ABG pH POC ABG pCO2 POC ABG pO2 Sodium 150 H Potassium Chloride 114.8 H Carbon Dioxide BUN 24 H Creatinine 0.7 L Glucose 131 H POC Glucose 166 H 107 H Lactic Acid Calcium 7.8 L Magnesium AST Alkaline Phosphatase Total Creatine Kinase CK-MB (CK-2) Troponin T C-Reactive Protein Total Protein Albumin Cholesterol LDL Cholesterol Direct HDL Cholesterol Free T4 Urine WBC (Auto) Urine Creatinine Urine Total Protein Crossmatch 08/27/18 08/27/18 08/27/18 08:22 14:20 16:06 WBC RBC Hgb Hct MCV MCH MCHC RDW Lymph % (Auto) [place] % (Auto) Eos % (Auto) Lymph # [place] # Eos # Seg Neutrophils % Lymphocytes % (Manual) Seg Neutrophils # Lymphocytes # (Manual) PT INR APTT D-Dimer Heparin Anti-Xa Level POC ABG pH POC ABG pCO2 POC ABG pO2 Sodium Potassium Chloride Carbon Dioxide BUN Creatinine Glucose POC Glucose 112 H 151 H 158 H Lactic Acid Calcium Magnesium AST Alkaline Phosphatase Total Creatine Kinase CK-MB (CK-2) Troponin T C-Reactive Protein Total Protein Albumin Cholesterol LDL Cholesterol Direct HDL Cholesterol Free T4 Urine WBC (Auto) Urine Creatinine Urine Total Protein Crossmatch 08/27/18 08/27/18 08/28/18 20:09 21:25 02:03 WBC RBC Hgb Hct MCV MCH MCHC RDW Lymph % (Auto) [place] % (Auto) Eos % (Auto) Lymph # [place] # Eos # Seg Neutrophils % Lymphocytes % (Manual) Seg Neutrophils # Lymphocytes # (Manual) PT INR APTT D-Dimer Heparin Anti-Xa Level POC ABG pH POC ABG pCO2 POC ABG pO2 130 H Sodium Potassium Chloride Carbon Dioxide BUN Creatinine Glucose POC Glucose 226 H 250 H Lactic Acid Calcium Magnesium AST Alkaline Phosphatase Total Creatine Kinase CK-MB (CK-2) Troponin T C-Reactive Protein Total Protein Albumin Cholesterol LDL Cholesterol Direct HDL Cholesterol Free T4 Urine WBC (Auto) Urine Creatinine Urine Total Protein Crossmatch 08/28/18 08/28/18 08/28/18 05:56 07:15 13:17 WBC RBC Hgb Hct MCV MCH MCHC RDW Lymph % (Auto) [place] % (Auto) Eos % (Auto) Lymph # [place] # Eos # Seg Neutrophils % Lymphocytes % (Manual) Seg Neutrophils # Lymphocytes # (Manual) PT INR APTT D-Dimer Heparin Anti-Xa Level POC ABG pH POC ABG pCO2 POC ABG pO2 Sodium Potassium Chloride Carbon Dioxide BUN Creatinine Glucose 198 H POC Glucose 221 H 188 H Lactic Acid Calcium 7.7 L Magnesium AST Alkaline Phosphatase Total Creatine Kinase CK-MB (CK-2) Troponin T C-Reactive Protein Total Protein Albumin Cholesterol LDL Cholesterol Direct HDL Cholesterol Free T4 Urine WBC (Auto) Urine Creatinine Urine Total Protein Crossmatch 08/28/18 08/28/18 08/28/18 15:53 18:12 22:35 WBC RBC Hgb Hct MCV MCH MCHC RDW Lymph % (Auto) [place] % (Auto) Eos % (Auto) Lymph # [place] # Eos # Seg Neutrophils % Lymphocytes % (Manual) Seg Neutrophils # Lymphocytes # (Manual) PT INR APTT D-Dimer Heparin Anti-Xa Level POC ABG pH 7.457 H POC ABG pCO2 POC ABG pO2 Sodium Potassium Chloride Carbon Dioxide BUN Creatinine Glucose POC Glucose 197 H 225 H Lactic Acid Calcium Magnesium AST Alkaline Phosphatase Total Creatine Kinase CK-MB (CK-2) Troponin T C-Reactive Protein Total Protein Albumin Cholesterol LDL Cholesterol Direct HDL Cholesterol Free T4 Urine WBC (Auto) Urine Creatinine Urine Total Protein Crossmatch 08/29/18 08/29/18 08/29/18 03:04 10:47 14:25 WBC RBC Hgb Hct MCV MCH MCHC RDW Lymph % (Auto) [place] % (Auto) Eos % (Auto) Lymph # [place] # Eos # Seg Neutrophils % Lymphocytes % (Manual) Seg Neutrophils # Lymphocytes # (Manual) PT INR APTT D-Dimer Heparin Anti-Xa Level POC ABG pH POC ABG pCO2 POC ABG pO2 Sodium Potassium Chloride Carbon Dioxide BUN Creatinine Glucose POC Glucose 223 H 371 H 266 H Lactic Acid Calcium Magnesium AST Alkaline Phosphatase Total Creatine Kinase CK-MB (CK-2) Troponin T C-Reactive Protein Total Protein Albumin Cholesterol LDL Cholesterol Direct HDL Cholesterol Free T4 Urine WBC (Auto) Urine Creatinine Urine Total Protein Crossmatch 08/29/18 08/29/18 08/29/18 16:45 17:36 21:33 WBC RBC Hgb Hct MCV MCH MCHC RDW Lymph % (Auto) [place] % (Auto) Eos % (Auto) Lymph # [place] # Eos # Seg Neutrophils % Lymphocytes % (Manual) Seg Neutrophils # Lymphocytes # (Manual) PT INR APTT D-Dimer Heparin Anti-Xa Level POC ABG pH POC ABG pCO2 POC ABG pO2 118 H Sodium Potassium Chloride Carbon Dioxide BUN Creatinine Glucose POC Glucose 253 H 204 H Lactic Acid Calcium Magnesium AST Alkaline Phosphatase Total Creatine Kinase CK-MB (CK-2) Troponin T C-Reactive Protein Total Protein Albumin Cholesterol LDL Cholesterol Direct HDL Cholesterol Free T4 Urine WBC (Auto) Urine Creatinine Urine Total Protein Crossmatch 08/30/18 08/30/18 08/30/18 01:33 05:27 05:40 WBC RBC 3.12 L Hgb 8.5 L Hct 25.9 L MCV 83 L MCH 27 L MCHC RDW 18.3 H Lymph % (Auto) [place] % (Auto) 7.8 H Eos % (Auto) 8.8 H Lymph # [place] # Eos # 0.6 H Seg Neutrophils % Lymphocytes % (Manual) Seg Neutrophils # Lymphocytes # (Manual) PT INR APTT D-Dimer Heparin Anti-Xa Level POC ABG pH POC ABG pCO2 POC ABG pO2 Sodium Potassium Chloride Carbon Dioxide BUN Creatinine Glucose POC Glucose 157 H 178 H Lactic Acid Calcium Magnesium AST Alkaline Phosphatase Total Creatine Kinase CK-MB (CK-2) Troponin T C-Reactive Protein Total Protein Albumin Cholesterol LDL Cholesterol Direct HDL Cholesterol Free T4 Urine WBC (Auto) Urine Creatinine Urine Total Protein Crossmatch 08/30/18 08/30/18 08/30/18 05:40 09:28 11:41 WBC RBC Hgb Hct MCV MCH MCHC RDW Lymph % (Auto) [place] % (Auto) Eos % (Auto) Lymph # [place] # Eos # Seg Neutrophils % Lymphocytes % (Manual) Seg Neutrophils # Lymphocytes # (Manual) PT INR APTT D-Dimer Heparin Anti-Xa Level POC ABG pH POC ABG pCO2 POC ABG pO2 Sodium Potassium Chloride Carbon Dioxide BUN Creatinine 0.7 L Glucose 189 H POC Glucose 216 H 257 H Lactic Acid Calcium 8.2 L Magnesium AST 50 H Alkaline Phosphatase 158 H Total Creatine Kinase CK-MB (CK-2) Troponin T C-Reactive Protein Total Protein Albumin 1.6 L Cholesterol LDL Cholesterol Direct HDL Cholesterol Free T4 Urine WBC (Auto) Urine Creatinine Urine Total Protein Crossmatch 08/30/18 08/30/18 08/30/18 14:34 17:07 21:56 WBC RBC Hgb Hct MCV MCH MCHC RDW Lymph % (Auto) [place] % (Auto) Eos % (Auto) Lymph # [place] # Eos # Seg Neutrophils % Lymphocytes % (Manual) Seg Neutrophils # Lymphocytes # (Manual) PT INR APTT D-Dimer Heparin Anti-Xa Level POC ABG pH POC ABG pCO2 POC ABG pO2 Sodium Potassium Chloride Carbon Dioxide BUN Creatinine Glucose POC Glucose 263 H 263 H 234 H Lactic Acid Calcium Magnesium AST Alkaline Phosphatase Total Creatine Kinase CK-MB (CK-2) Troponin T C-Reactive Protein Total Protein Albumin Cholesterol LDL Cholesterol Direct HDL Cholesterol Free T4 Urine WBC (Auto) Urine Creatinine Urine Total Protein Crossmatch 08/31/18 08/31/18 08/31/18 02:02 05:29 09:24 WBC RBC Hgb Hct MCV MCH MCHC RDW Lymph % (Auto) [place] % (Auto) Eos % (Auto) Lymph # [place] # Eos # Seg Neutrophils % Lymphocytes % (Manual) Seg Neutrophils # Lymphocytes # (Manual) PT INR APTT D-Dimer Heparin Anti-Xa Level POC ABG pH POC ABG pCO2 POC ABG pO2 Sodium Potassium Chloride Carbon Dioxide BUN Creatinine Glucose POC Glucose 151 H 156 H 107 H Lactic Acid Calcium Magnesium AST Alkaline Phosphatase Total Creatine Kinase CK-MB (CK-2) Troponin T C-Reactive Protein Total Protein Albumin Cholesterol LDL Cholesterol Direct HDL Cholesterol Free T4 Urine WBC (Auto) Urine Creatinine Urine Total Protein Crossmatch 08/31/18 08/31/18 08/31/18 13:51 17:28 21:40 WBC RBC Hgb Hct MCV MCH MCHC RDW Lymph % (Auto) [place] % (Auto) Eos % (Auto) Lymph # [place] # Eos # Seg Neutrophils % Lymphocytes % (Manual) Seg Neutrophils # Lymphocytes # (Manual) PT INR APTT D-Dimer Heparin Anti-Xa Level POC ABG pH POC ABG pCO2 POC ABG pO2 Sodium Potassium Chloride Carbon Dioxide BUN Creatinine Glucose POC Glucose 170 H 239 H 209 H Lactic Acid Calcium Magnesium AST Alkaline Phosphatase Total Creatine Kinase CK-MB (CK-2) Troponin T C-Reactive Protein Total Protein Albumin Cholesterol LDL Cholesterol Direct HDL Cholesterol Free T4 Urine WBC (Auto) Urine Creatinine Urine Total Protein Crossmatch 08/31/18 08/31/18 09/01/18 22:25 22:25 01:47 WBC RBC Hgb Hct MCV MCH MCHC RDW Lymph % (Auto) [place] % (Auto) Eos % (Auto) Lymph # [place] # Eos # Seg Neutrophils % Lymphocytes % (Manual) Seg Neutrophils # Lymphocytes # (Manual) PT INR APTT D-Dimer Heparin Anti-Xa Level POC ABG pH POC ABG pCO2 45.6 H POC ABG pO2 135 H Sodium Potassium Chloride Carbon Dioxide BUN Creatinine Glucose POC Glucose 208 H 223 H Lactic Acid Calcium Magnesium AST Alkaline Phosphatase Total Creatine Kinase CK-MB (CK-2) Troponin T C-Reactive Protein Total Protein Albumin Cholesterol LDL Cholesterol Direct HDL Cholesterol Free T4 Urine WBC (Auto) Urine Creatinine Urine Total Protein Crossmatch 09/01/18 09/01/18 09/01/18 05:18 05:19 05:19 WBC RBC 3.08 L Hgb 8.5 L Hct 25.6 L MCV 83 L MCH MCHC RDW 18.7 H Lymph % (Auto) [place] % (Auto) 7.9 H Eos % (Auto) 6.1 H Lymph # [place] # Eos # Seg Neutrophils % Lymphocytes % (Manual) Seg Neutrophils # Lymphocytes # (Manual) PT INR APTT D-Dimer Heparin Anti-Xa Level POC ABG pH POC ABG pCO2 POC ABG pO2 Sodium Potassium Chloride 107.9 H Carbon Dioxide BUN 21 H Creatinine 0.7 L Glucose 188 H POC Glucose 236 H Lactic Acid Calcium Magnesium AST Alkaline Phosphatase Total Creatine Kinase CK-MB (CK-2) Troponin T C-Reactive Protein Total Protein Albumin Cholesterol LDL Cholesterol Direct HDL Cholesterol Free T4 Urine WBC (Auto) Urine Creatinine Urine Total Protein Crossmatch 09/01/18 09/01/18 09/01/18 09:29 14:25 18:20 WBC RBC Hgb Hct MCV MCH MCHC RDW Lymph % (Auto) [place] % (Auto) Eos % (Auto) Lymph # [place] # Eos # Seg Neutrophils % Lymphocytes % (Manual) Seg Neutrophils # Lymphocytes # (Manual) PT INR APTT D-Dimer Heparin Anti-Xa Level POC ABG pH POC ABG pCO2 POC ABG pO2 Sodium Potassium Chloride Carbon Dioxide BUN Creatinine Glucose POC Glucose 231 H 294 H 215 H Lactic Acid Calcium Magnesium AST Alkaline Phosphatase Total Creatine Kinase CK-MB (CK-2) Troponin T C-Reactive Protein Total Protein Albumin Cholesterol LDL Cholesterol Direct HDL Cholesterol Free T4 Urine WBC (Auto) Urine Creatinine Urine Total Protein Crossmatch 09/01/18 09/02/18 09/02/18 21:21 03:28 05:25 WBC RBC Hgb Hct MCV MCH MCHC RDW Lymph % (Auto) [place] % (Auto) Eos % (Auto) Lymph # [place] # Eos # Seg Neutrophils % Lymphocytes % (Manual) Seg Neutrophils # Lymphocytes # (Manual) PT INR APTT D-Dimer Heparin Anti-Xa Level POC ABG pH POC ABG pCO2 POC ABG pO2 Sodium Potassium Chloride Carbon Dioxide BUN Creatinine Glucose POC Glucose 236 H 194 H 183 H Lactic Acid Calcium Magnesium AST Alkaline Phosphatase Total Creatine Kinase CK-MB (CK-2) Troponin T C-Reactive Protein Total Protein Albumin Cholesterol LDL Cholesterol Direct HDL Cholesterol Free T4 Urine WBC (Auto) Urine Creatinine Urine Total Protein Crossmatch 09/02/18 09/02/18 09/02/18 09:16 15:30 17:20 WBC RBC Hgb Hct MCV MCH MCHC RDW Lymph % (Auto) [place] % (Auto) Eos % (Auto) Lymph # [place] # Eos # Seg Neutrophils % Lymphocytes % (Manual) Seg Neutrophils # Lymphocytes # (Manual) PT INR APTT D-Dimer Heparin Anti-Xa Level POC ABG pH POC ABG pCO2 POC ABG pO2 Sodium Potassium Chloride Carbon Dioxide BUN Creatinine Glucose POC Glucose 251 H 303 H 316 H Lactic Acid Calcium Magnesium AST Alkaline Phosphatase Total Creatine Kinase CK-MB (CK-2) Troponin T C-Reactive Protein Total Protein Albumin Cholesterol LDL Cholesterol Direct HDL Cholesterol Free T4 Urine WBC (Auto) Urine Creatinine Urine Total Protein Crossmatch 09/02/18 09/03/18 09/03/18 21:25 03:32 05:20 WBC RBC Hgb Hct MCV MCH MCHC RDW Lymph % (Auto) [place] % (Auto) Eos % (Auto) Lymph # [place] # Eos # Seg Neutrophils % Lymphocytes % (Manual) Seg Neutrophils # Lymphocytes # (Manual) PT INR APTT D-Dimer Heparin Anti-Xa Level POC ABG pH POC ABG pCO2 POC ABG pO2 Sodium Potassium Chloride Carbon Dioxide BUN Creatinine Glucose POC Glucose 242 H 305 H 225 H Lactic Acid Calcium Magnesium AST Alkaline Phosphatase Total Creatine Kinase CK-MB (CK-2) Troponin T C-Reactive Protein Total Protein Albumin Cholesterol LDL Cholesterol Direct HDL Cholesterol Free T4 Urine WBC (Auto) Urine Creatinine Urine Total Protein Crossmatch 09/03/18 09/03/18 09/03/18 07:52 07:52 10:19 WBC RBC 3.29 L Hgb 9.0 L Hct 27.3 L MCV 83 L MCH 27 L MCHC RDW 18.4 H Lymph % (Auto) [place] % (Auto) Eos % (Auto) Lymph # [place] # Eos # Seg Neutrophils % Lymphocytes % (Manual) Seg Neutrophils # Lymphocytes # (Manual) PT INR APTT D-Dimer Heparin Anti-Xa Level POC ABG pH POC ABG pCO2 POC ABG pO2 Sodium Potassium Chloride Carbon Dioxide BUN 23 H Creatinine Glucose 205 H POC Glucose 228 H Lactic Acid Calcium 7.9 L Magnesium AST Alkaline Phosphatase Total Creatine Kinase CK-MB (CK-2) Troponin T C-Reactive Protein Total Protein Albumin Cholesterol LDL Cholesterol Direct HDL Cholesterol Free T4 Urine WBC (Auto) Urine Creatinine Urine Total Protein Crossmatch 09/03/18 09/03/18 09/03/18 13:42 17:22 21:33 WBC RBC Hgb Hct MCV MCH MCHC RDW Lymph % (Auto) [place] % (Auto) Eos % (Auto) Lymph # [place] # Eos # Seg Neutrophils % Lymphocytes % (Manual) Seg Neutrophils # Lymphocytes # (Manual) PT INR APTT D-Dimer Heparin Anti-Xa Level POC ABG pH POC ABG pCO2 POC ABG pO2 Sodium Potassium Chloride Carbon Dioxide BUN Creatinine Glucose POC Glucose 221 H 186 H 179 H Lactic Acid Calcium Magnesium AST Alkaline Phosphatase Total Creatine Kinase CK-MB (CK-2) Troponin T C-Reactive Protein Total Protein Albumin Cholesterol LDL Cholesterol Direct HDL Cholesterol Free T4 Urine WBC (Auto) Urine Creatinine Urine Total Protein Crossmatch 09/04/18 09/04/18 09/04/18 02:07 05:54 11:03 WBC RBC Hgb Hct MCV MCH MCHC RDW Lymph % (Auto) [place] % (Auto) Eos % (Auto) Lymph # [place] # Eos # Seg Neutrophils % Lymphocytes % (Manual) Seg Neutrophils # Lymphocytes # (Manual) PT INR APTT D-Dimer Heparin Anti-Xa Level POC ABG pH POC ABG pCO2 POC ABG pO2 Sodium Potassium Chloride Carbon Dioxide BUN Creatinine Glucose POC Glucose 174 H 171 H 181 H Lactic Acid Calcium Magnesium AST Alkaline Phosphatase Total Creatine Kinase CK-MB (CK-2) Troponin T C-Reactive Protein Total Protein Albumin Cholesterol LDL Cholesterol Direct HDL Cholesterol Free T4 Urine WBC (Auto) Urine Creatinine Urine Total Protein Crossmatch 09/04/18 09/04/18 09/04/18 14:59 18:24 21:50 WBC RBC Hgb Hct MCV MCH MCHC RDW Lymph % (Auto) [place] % (Auto) Eos % (Auto) Lymph # [place] # Eos # Seg Neutrophils % Lymphocytes % (Manual) Seg Neutrophils # Lymphocytes # (Manual) PT INR APTT D-Dimer Heparin Anti-Xa Level POC ABG pH POC ABG pCO2 POC ABG pO2 Sodium Potassium Chloride Carbon Dioxide BUN Creatinine Glucose POC Glucose 204 H 236 H 197 H Lactic Acid Calcium Magnesium AST Alkaline Phosphatase Total Creatine Kinase CK-MB (CK-2) Troponin T C-Reactive Protein Total Protein Albumin Cholesterol LDL Cholesterol Direct HDL Cholesterol Free T4 Urine WBC (Auto) Urine Creatinine Urine Total Protein Crossmatch 09/05/18 09/05/18 09/05/18 01:32 04:52 04:52 WBC RBC 3.16 L Hgb 8.7 L Hct 26.0 L MCV 82 L MCH MCHC RDW 18.9 H Lymph % (Auto) [place] % (Auto) Eos % (Auto) Lymph # [place] # Eos # Seg Neutrophils % Lymphocytes % (Manual) Seg Neutrophils # Lymphocytes # (Manual) PT INR APTT D-Dimer Heparin Anti-Xa Level POC ABG pH POC ABG pCO2 POC ABG pO2 Sodium Potassium Chloride 107.2 H Carbon Dioxide BUN 23 H Creatinine 0.7 L Glucose 215 H POC Glucose 210 H Lactic Acid Calcium 8.3 L Magnesium AST Alkaline Phosphatase Total Creatine Kinase CK-MB (CK-2) Troponin T C-Reactive Protein Total Protein Albumin Cholesterol LDL Cholesterol Direct HDL Cholesterol Free T4 Urine WBC (Auto) Urine Creatinine Urine Total Protein Crossmatch 09/05/18 09/05/18 09/05/18 05:36 10:26 13:11 WBC RBC Hgb Hct MCV MCH MCHC RDW Lymph % (Auto) [place] % (Auto) Eos % (Auto) Lymph # [place] # Eos # Seg Neutrophils % Lymphocytes % (Manual) Seg Neutrophils # Lymphocytes # (Manual) PT INR APTT D-Dimer Heparin Anti-Xa Level POC ABG pH POC ABG pCO2 POC ABG pO2 Sodium Potassium Chloride Carbon Dioxide BUN Creatinine Glucose POC Glucose 216 H 206 H 161 H Lactic Acid Calcium Magnesium AST Alkaline Phosphatase Total Creatine Kinase CK-MB (CK-2) Troponin T C-Reactive Protein Total Protein Albumin Cholesterol LDL Cholesterol Direct HDL Cholesterol Free T4 Urine WBC (Auto) Urine Creatinine Urine Total Protein Crossmatch 09/05/18 09/05/18 09/05/18 18:27 18:32 22:05 WBC RBC Hgb Hct MCV MCH MCHC RDW Lymph % (Auto) [place] % (Auto) Eos % (Auto) Lymph # [place] # Eos # Seg Neutrophils % Lymphocytes % (Manual) Seg Neutrophils # Lymphocytes # (Manual) PT INR APTT D-Dimer Heparin Anti-Xa Level POC ABG pH 7.478 H POC ABG pCO2 POC ABG pO2 138 H Sodium Potassium Chloride Carbon Dioxide BUN Creatinine Glucose POC Glucose 154 H 149 H Lactic Acid Calcium Magnesium AST Alkaline Phosphatase Total Creatine Kinase CK-MB (CK-2) Troponin T C-Reactive Protein Total Protein Albumin Cholesterol LDL Cholesterol Direct HDL Cholesterol Free T4 Urine WBC (Auto) Urine Creatinine Urine Total Protein Crossmatch 09/06/18 09/06/18 09/06/18 04:40 08:30 10:06 WBC RBC Hgb Hct MCV MCH MCHC RDW Lymph % (Auto) [place] % (Auto) Eos % (Auto) Lymph # [place] # Eos # Seg Neutrophils % Lymphocytes % (Manual) Seg Neutrophils # Lymphocytes # (Manual) PT INR APTT D-Dimer Heparin Anti-Xa Level POC ABG pH POC ABG pCO2 POC ABG pO2 Sodium Potassium Chloride Carbon Dioxide BUN Creatinine Glucose POC Glucose 140 H 188 H 199 H Lactic Acid Calcium Magnesium AST Alkaline Phosphatase Total Creatine Kinase CK-MB (CK-2) Troponin T C-Reactive Protein Total Protein Albumin Cholesterol LDL Cholesterol Direct HDL Cholesterol Free T4 Urine WBC (Auto) Urine Creatinine Urine Total Protein Crossmatch 09/06/18 09/06/18 09/06/18 12:13 14:23 17:11 WBC RBC Hgb Hct MCV MCH MCHC RDW Lymph % (Auto) [place] % (Auto) Eos % (Auto) Lymph # [place] # Eos # Seg Neutrophils % Lymphocytes % (Manual) Seg Neutrophils # Lymphocytes # (Manual) PT INR APTT D-Dimer Heparin Anti-Xa Level POC ABG pH POC ABG pCO2 POC ABG pO2 Sodium Potassium Chloride Carbon Dioxide BUN Creatinine Glucose POC Glucose 177 H 180 H 216 H Lactic Acid Calcium Magnesium AST Alkaline Phosphatase Total Creatine Kinase CK-MB (CK-2) Troponin T C-Reactive Protein Total Protein Albumin Cholesterol LDL Cholesterol Direct HDL Cholesterol Free T4 Urine WBC (Auto) Urine Creatinine Urine Total Protein Crossmatch 09/06/18 09/07/18 09/07/18 21:47 02:02 04:55 WBC RBC 3.08 L Hgb 8.5 L Hct 25.2 L MCV 82 L MCH MCHC RDW 18.8 H Lymph % (Auto) [place] % (Auto) Eos % (Auto) Lymph # 0.8 L [place] # Eos # Seg Neutrophils % 84.8 H Lymphocytes % (Manual) Seg Neutrophils # Lymphocytes # (Manual) PT INR APTT D-Dimer Heparin Anti-Xa Level POC ABG pH POC ABG pCO2 POC ABG pO2 Sodium Potassium Chloride Carbon Dioxide BUN Creatinine Glucose POC Glucose 275 H 291 H Lactic Acid Calcium Magnesium AST Alkaline Phosphatase Total Creatine Kinase CK-MB (CK-2) Troponin T C-Reactive Protein Total Protein Albumin Cholesterol LDL Cholesterol Direct HDL Cholesterol Free T4 Urine WBC (Auto) Urine Creatinine Urine Total Protein Crossmatch 09/07/18 09/07/18 09/07/18 04:55 06:02 10:27 WBC RBC Hgb Hct MCV MCH MCHC RDW Lymph % (Auto) [place] % (Auto) Eos % (Auto) Lymph # [place] # Eos # Seg Neutrophils % Lymphocytes % (Manual) Seg Neutrophils # Lymphocytes # (Manual) PT INR APTT D-Dimer Heparin Anti-Xa Level POC ABG pH POC ABG pCO2 POC ABG pO2 Sodium Potassium Chloride Carbon Dioxide BUN 30 H Creatinine 0.7 L Glucose 291 H POC Glucose 320 H 365 H Lactic Acid Calcium Magnesium AST Alkaline Phosphatase Total Creatine Kinase CK-MB (CK-2) Troponin T C-Reactive Protein Total Protein Albumin Cholesterol LDL Cholesterol Direct HDL Cholesterol Free T4 Urine WBC (Auto) Urine Creatinine Urine Total Protein Crossmatch 09/07/18 09/07/18 09/07/18 13:52 17:12 21:29 WBC RBC Hgb Hct MCV MCH MCHC RDW Lymph % (Auto) [place] % (Auto) Eos % (Auto) Lymph # [place] # Eos # Seg Neutrophils % Lymphocytes % (Manual) Seg Neutrophils # Lymphocytes # (Manual) PT INR APTT D-Dimer Heparin Anti-Xa Level POC ABG pH POC ABG pCO2 POC ABG pO2 Sodium Potassium Chloride Carbon Dioxide BUN Creatinine Glucose POC Glucose 364 H 338 H 242 H Lactic Acid Calcium Magnesium AST Alkaline Phosphatase Total Creatine Kinase CK-MB (CK-2) Troponin T C-Reactive Protein Total Protein Albumin Cholesterol LDL Cholesterol Direct HDL Cholesterol Free T4 Urine WBC (Auto) Urine Creatinine Urine Total Protein Crossmatch 09/07/18 09/08/18 09/08/18 22:24 02:02 04:22 WBC 14.8 H RBC 3.15 L Hgb 8.5 L Hct 26.3 L MCV 83 L MCH 27 L MCHC RDW 19.6 H Lymph % (Auto) [place] % (Auto) Eos % (Auto) Lymph # [place] # Eos # Seg Neutrophils % Lymphocytes % (Manual) Seg Neutrophils # Lymphocytes # (Manual) PT INR APTT D-Dimer Heparin Anti-Xa Level POC ABG pH 7.484 H POC ABG pCO2 POC ABG pO2 61 L Sodium Potassium Chloride Carbon Dioxide BUN Creatinine Glucose POC Glucose 324 H Lactic Acid Calcium Magnesium AST Alkaline Phosphatase Total Creatine Kinase CK-MB (CK-2) Troponin T C-Reactive Protein Total Protein Albumin Cholesterol LDL Cholesterol Direct HDL Cholesterol Free T4 Urine WBC (Auto) Urine Creatinine Urine Total Protein Crossmatch 09/08/18 09/08/18 09/08/18 04:22 05:33 09:40 WBC RBC Hgb Hct MCV MCH MCHC RDW Lymph % (Auto) [place] % (Auto) Eos % (Auto) Lymph # [place] # Eos # Seg Neutrophils % Lymphocytes % (Manual) Seg Neutrophils # Lymphocytes # (Manual) PT INR APTT D-Dimer Heparin Anti-Xa Level POC ABG pH POC ABG pCO2 POC ABG pO2 Sodium Potassium Chloride Carbon Dioxide BUN 39 H Creatinine Glucose 320 H POC Glucose 324 H 329 H Lactic Acid Calcium 8.3 L Magnesium AST Alkaline Phosphatase Total Creatine Kinase CK-MB (CK-2) Troponin T C-Reactive Protein Total Protein Albumin Cholesterol LDL Cholesterol Direct HDL Cholesterol Free T4 Urine WBC (Auto) Urine Creatinine Urine Total Protein Crossmatch 09/08/18 09/08/18 09/08/18 13:11 18:02 21:27 WBC RBC Hgb Hct MCV MCH MCHC RDW Lymph % (Auto) [place] % (Auto) Eos % (Auto) Lymph # [place] # Eos # Seg Neutrophils % Lymphocytes % (Manual) Seg Neutrophils # Lymphocytes # (Manual) PT INR APTT D-Dimer Heparin Anti-Xa Level POC ABG pH POC ABG pCO2 POC ABG pO2 Sodium Potassium Chloride Carbon Dioxide BUN Creatinine Glucose POC Glucose 369 H 331 H 304 H Lactic Acid Calcium Magnesium AST Alkaline Phosphatase Total Creatine Kinase CK-MB (CK-2) Troponin T C-Reactive Protein Total Protein Albumin Cholesterol LDL Cholesterol Direct HDL Cholesterol Free T4 Urine WBC (Auto) Urine Creatinine Urine Total Protein Crossmatch 09/09/18 09/09/18 09/09/18 02:03 05:29 09:20 WBC RBC Hgb Hct MCV MCH MCHC RDW Lymph % (Auto) [place] % (Auto) Eos % (Auto) Lymph # [place] # Eos # Seg Neutrophils % Lymphocytes % (Manual) Seg Neutrophils # Lymphocytes # (Manual) PT INR APTT D-Dimer Heparin Anti-Xa Level POC ABG pH POC ABG pCO2 POC ABG pO2 Sodium Potassium Chloride Carbon Dioxide BUN Creatinine Glucose POC Glucose 361 H 204 H 292 H Lactic Acid Calcium Magnesium AST Alkaline Phosphatase Total Creatine Kinase CK-MB (CK-2) Troponin T C-Reactive Protein Total Protein Albumin Cholesterol LDL Cholesterol Direct HDL Cholesterol Free T4 Urine WBC (Auto) Urine Creatinine Urine Total Protein Crossmatch 09/09/18 09/09/18 09/09/18 14:20 15:04 18:08 WBC RBC Hgb Hct MCV MCH MCHC RDW Lymph % (Auto) [place] % (Auto) Eos % (Auto) Lymph # [place] # Eos # Seg Neutrophils % Lymphocytes % (Manual) Seg Neutrophils # Lymphocytes # (Manual) PT INR APTT D-Dimer Heparin Anti-Xa Level POC ABG pH 7.464 H POC ABG pCO2 POC ABG pO2 109 H Sodium Potassium Chloride Carbon Dioxide BUN Creatinine Glucose POC Glucose 253 H 196 H Lactic Acid Calcium Magnesium AST Alkaline Phosphatase Total Creatine Kinase CK-MB (CK-2) Troponin T C-Reactive Protein Total Protein Albumin Cholesterol LDL Cholesterol Direct HDL Cholesterol Free T4 Urine WBC (Auto) Urine Creatinine Urine Total Protein Crossmatch 09/09/18 09/10/18 09/10/18 22:23 02:32 06:10 WBC RBC Hgb Hct MCV MCH MCHC RDW Lymph % (Auto) [place] % (Auto) Eos % (Auto) Lymph # [place] # Eos # Seg Neutrophils % Lymphocytes % (Manual) Seg Neutrophils # Lymphocytes # (Manual) PT INR APTT D-Dimer Heparin Anti-Xa Level POC ABG pH POC ABG pCO2 POC ABG pO2 Sodium Potassium Chloride Carbon Dioxide BUN Creatinine Glucose POC Glucose 245 H 238 H 250 H Lactic Acid Calcium Magnesium AST Alkaline Phosphatase Total Creatine Kinase CK-MB (CK-2) Troponin T C-Reactive Protein Total Protein Albumin Cholesterol LDL Cholesterol Direct HDL Cholesterol Free T4 Urine WBC (Auto) Urine Creatinine Urine Total Protein Crossmatch 09/10/18 09/10/18 09/10/18 08:16 11:35 21:18 WBC RBC Hgb Hct MCV MCH MCHC RDW Lymph % (Auto) [place] % (Auto) Eos % (Auto) Lymph # [place] # Eos # Seg Neutrophils % Lymphocytes % (Manual) Seg Neutrophils # Lymphocytes # (Manual) PT INR APTT D-Dimer Heparin Anti-Xa Level POC ABG pH POC ABG pCO2 POC ABG pO2 Sodium Potassium Chloride Carbon Dioxide BUN Creatinine Glucose POC Glucose 232 H 267 H 270 H Lactic Acid Calcium Magnesium AST Alkaline Phosphatase Total Creatine Kinase CK-MB (CK-2) Troponin T C-Reactive Protein Total Protein Albumin Cholesterol LDL Cholesterol Direct HDL Cholesterol Free T4 Urine WBC (Auto) Urine Creatinine Urine Total Protein Crossmatch 09/11/18 09/11/18 09/11/18 06:21 07:49 12:02 WBC RBC Hgb Hct MCV MCH MCHC RDW Lymph % (Auto) [place] % (Auto) Eos % (Auto) Lymph # [place] # Eos # Seg Neutrophils % Lymphocytes % (Manual) Seg Neutrophils # Lymphocytes # (Manual) PT INR APTT D-Dimer Heparin Anti-Xa Level POC ABG pH POC ABG pCO2 POC ABG pO2 Sodium Potassium Chloride Carbon Dioxide BUN Creatinine Glucose POC Glucose 255 H 233 H 200 H Lactic Acid Calcium Magnesium AST Alkaline Phosphatase Total Creatine Kinase CK-MB (CK-2) Troponin T C-Reactive Protein Total Protein Albumin Cholesterol LDL Cholesterol Direct HDL Cholesterol Free T4 Urine WBC (Auto) Urine Creatinine Urine Total Protein Crossmatch Allied health notes reviewed: nursing
[2018-09-11] MEDS: LOVENOX SUB-Q SCH (22:04)
[2018-09-11] MEDS: LANTUS SUB-Q SCH (22:04)
[2018-09-11 22:58] LABS: Hematocrit 26.2 % (35.5-45.6); Hemoglobin 8.5 gm/dl (11.8-15.2); Mean Corpuscular HGB Conc 33 % (32-34); Mean Corpuscular Volume 83 fl (84-94); Red Blood Count 3.16 M/mm3 (3.65-5.03)
[2018-09-11 22:59] LABS: Platelet Count 275 K/mm3 (140-440); Red Cell Distribution Width 20.7 % (13.2-15.2)
[2018-09-11 23:22] LABS: Basophils % (Manual) 0 % (0.0-1.8); Total Cells Counted 100
[2018-09-11 23:23] LABS: Anisocytosis 1+; Poikilocytosis Few
[2018-09-12] MEDS: HumaLOG SUB-Q SCH ×6 (02:09→22:21)
[2018-09-12 06:03] LABS: Basophils % (Auto) 0.3 % (0.0-1.8); Eosinophils # (Auto) 0.4 K/mm3 (0.0-0.4); Eosinophils % (Auto) 4.1 % (0.0-4.3); Hematocrit 23.9 % (35.5-45.6); Hemoglobin 7.9 gm/dl (11.8-15.2); Lymphocytes # (Auto) 1.9 K/mm3 (1.2-5.4); Lymphocytes % (Auto) 17.6 % (13.4-35.0); Mean Corpuscular HGB Conc 33 % (32-34); Mean Corpuscular Volume 83 fl (84-94); Monocytes # (Auto) 0.9 K/mm3 (0.0-0.8); Monocytes % (Auto) 7.8 % (0.0-7.3); Platelet Count 293 K/mm3 (140-440); Red Blood Count 2.89 M/mm3 (3.65-5.03)
[2018-09-12 06:07] LABS: Red Cell Distribution Width 20.1 % (13.2-15.2)
[2018-09-12] MEDS: APRESOLINE PO SCH ×3 (06:23→22:21)
[2018-09-12 06:25] LABS: BUN/Creatinine Ratio 40; Blood Urea Nitrogen 32 mg/dL (9-20); Calcium 8.2 mg/dL (8.4-10.2); Hemolysis Index 7
--- NOTE | 2018-09-12 07:02 | Progress Note ---
Assessment and Plan Acute hypoxemic respiratory failure on chronic s/p MVS . s/p Tracheostomy Status post cardiac arrest. Seizure disorder with breakthrough seizures. History of diabetes. History of cerebrovascular accident. Oropharyngeal dysphagia. History of seizures. Hypernatremia -Tracheostomy care, airway clearance, secretion management -Continue all current care as documented below -Adequate gas exchange -Needs better glycemic control -Aspiration precautons -Mobility and off loading for pressure ulcer prevention -Supportive transfusions, to keep HgB >7g/dL - Continue Keppra for seizures with prn ativan IV for breakthrough - Continue Stress ulcer & VTE prophylaxis - Continue bronchodilators with pulmonary hygiene per RT - Continue to wean supplemental oxygen to keep O2 sats 88-90% - Continue chronic home medications - Replete electrolytes as indicated - Avoid nephrotoxic agents, adjust all medications for CrCL - Continue enteral nutrition as tolerated - Continue accuchecks with glycemic control - Target glucose of 140-180 mg/dL - Influenza and pneumonia vaccination per protocol ....discussed with RN ....discharge planning PROGNOSIS:POOR CONDITION: POOR CODE STATUS: FULL CODE Subjective Date of service: 09/12/18 Principal diagnosis: Acute hypoxemic resp failure; S/P cardiac arrest; Seizures; DM II; H/O CVA Interval history: Patient is seen today for: Acute hypoxemic respiratory failure on chronic; Status post cardiac arrest; Seizure disorder with breakthrough seizures; History of diabetes; History of cerebrovascular accident; Oropharyngeal dysphagia; History of seizures. Seen and examined at bedside; 24hour events reviewed; nursing and respiratory care staff consulted; no adverse overnight events reported to me; s/p trach eostomy; AMS is persistent;continues to tolerate ATP trials; No emesis or overt aspiration and no seizure activity. RN at the bedside during my evaluation. No fevers documented overnight Objective Vital Signs - 12hr 09/11/18 09/11/18 09/11/18 19:54 21:26 22:37 Temperature 99.3 F Pulse Rate 94 H Respiratory 18 22 Rate Blood Pressure 134/55 O2 Sat by Pulse 97 98 Oximetry 09/11/18 09/11/18 09/12/18 23:00 23:31 04:29 Temperature 99.2 F 98.8 F Pulse Rate 89 99 H 95 H Respiratory 18 20 Rate Blood Pressure 156/65 145/60 O2 Sat by Pulse 97 100 Oximetry Constitutional: no acute distress, other (Elderly looking AAM, normocephalic resting in bed s/p trach to ATP) Eyes: non-icteric, injected, other (+periorbital swelling) ENT: oropharynx moist Neck: supple, no lymphadenopathy, no JVD, other (s/p tracheostomy) Effort: mildly labored Ascultation: Bilateral: diminished breath sounds, rhonchi Percussion: Bilateral: not dull Cardiovascular: regular rate and rhythm Gastrointestinal: normoactive bowel sounds, soft, non-tender, non-distended Integumentary: normal Extremities: no cyanosis, pulses normal, no ischemia or petechiae, edema (trace ) Neurologic: unable to assess, other (slight pupillary constriction to light) Psychiatric: other (unable to assess) CBC and BMP: 09/13/18 07:06 09/13/18 07:06 ABG, PT/INR, D-dimer: ABG POC ABG pH 7.464 (7.35-7.45) H 09/09/18 15:04 POC ABG pCO2 43.7 (35-45) 09/09/18 15:04 POC ABG pO2 109 (80-105) H 09/09/18 15:04 POC ABG HCO3 31.4 (22-26 mml/L) 09/09/18 15:04 POC ABG Total CO2 33 (23-27mmol/L) 09/09/18 15:04 POC ABG O2 Sat 98 09/09/18 15:04 PT/INR, D-dimer PT 16.5 Sec. (12.2-14.9) H 08/13/18 00:47 INR 1.25 (0.87-1.13) H 08/13/18 00:47 2742.50 ng/mlDDU (0-234) H 08/13/18 20:07 Abnormal lab findings: Abnormal Labs 08/12/18 08/12/18 08/12/18 21:44 21:44 21:44 WBC 15.5 H RBC 3.12 L Hgb 8.8 L Hct 28.9 L MCV MCH MCHC 31 L RDW 19.5 H Lymph % (Auto) [place] % (Auto) Eos % (Auto) Lymph # [place] # Eos # Seg Neutrophils % Seg Neuts % (Manual) Lymphocytes % (Manual) 48.0 H Seg Neutrophils # Seg Neutrophils # Man Lymphocytes # (Manual) 7.4 H Eosinophils # (Manual) PT 17.8 H INR 1.37 H APTT D-Dimer Heparin Anti-Xa Level POC ABG pH POC ABG pCO2 POC ABG pO2 Sodium 159 H Potassium Chloride 118.5 H Carbon Dioxide BUN 34 H Creatinine Glucose 161 H POC Glucose Lactic Acid Calcium Magnesium AST Alkaline Phosphatase Total Creatine Kinase CK-MB (CK-2) Troponin T 0.105 H* C-Reactive Protein Total Protein Albumin Cholesterol LDL Cholesterol Direct HDL Cholesterol Free T4 Urine WBC (Auto) Urine Creatinine Urine Total Protein Crossmatch 08/13/18 08/13/18 08/13/18 00:32 00:47 00:47 WBC RBC Hgb 9.2 L Hct 29.6 L MCV MCH MCHC RDW Lymph % (Auto) [place] % (Auto) Eos % (Auto) Lymph # [place] # Eos # Seg Neutrophils % Seg Neuts % (Manual) Lymphocytes % (Manual) Seg Neutrophils # Seg Neutrophils # Man Lymphocytes # (Manual) Eosinophils # (Manual) PT 16.5 H INR 1.25 H APTT 37.3 H D-Dimer Heparin Anti-Xa Level POC ABG pH POC ABG pCO2 POC ABG pO2 Sodium Potassium Chloride Carbon Dioxide BUN Creatinine Glucose POC Glucose Lactic Acid Calcium Magnesium AST Alkaline Phosphatase Total Creatine Kinase 211 H CK-MB (CK-2) 7.7 H Troponin T 0.169 H* D C-Reactive Protein Total Protein Albumin Cholesterol 46 L LDL Cholesterol Direct 17 L HDL Cholesterol 6 L Free T4 Urine WBC (Auto) Urine Creatinine Urine Total Protein Crossmatch 08/13/18 08/13/18 08/13/18 00:50 02:25 05:34 WBC RBC Hgb Hct MCV MCH MCHC RDW Lymph % (Auto) [place] % (Auto) Eos % (Auto) Lymph # [place] # Eos # Seg Neutrophils % Seg Neuts % (Manual) Lymphocytes % (Manual) Seg Neutrophils # Seg Neutrophils # Man Lymphocytes # (Manual) Eosinophils # (Manual) PT INR APTT D-Dimer Heparin Anti-Xa Level POC ABG pH 7.503 H POC ABG pCO2 POC ABG pO2 253 H Sodium Potassium Chloride Carbon Dioxide BUN Creatinine Glucose POC Glucose Lactic Acid Calcium Magnesium AST Alkaline Phosphatase Total Creatine Kinase 311 H CK-MB (CK-2) 10.4 H Troponin T 0.283 H* D C-Reactive Protein Total Protein Albumin Cholesterol LDL Cholesterol Direct HDL Cholesterol Free T4 Urine WBC (Auto) > 182.0 H Urine Creatinine Urine Total Protein Crossmatch 08/13/18 08/13/18 08/13/18 06:35 10:10 10:10 WBC RBC Hgb Hct MCV MCH MCHC RDW Lymph % (Auto) [place] % (Auto) Eos % (Auto) Lymph # [place] # Eos # Seg Neutrophils % Seg Neuts % (Manual) Lymphocytes % (Manual) Seg Neutrophils # Seg Neutrophils # Man Lymphocytes # (Manual) Eosinophils # (Manual) PT INR APTT D-Dimer Heparin Anti-Xa Level POC ABG pH 7.554 H POC ABG pCO2 33.5 L POC ABG pO2 220 H Sodium 158 H Potassium Chloride 117.1 H Carbon Dioxide BUN 53 H Creatinine 2.0 H Glucose 247 H POC Glucose Lactic Acid Calcium 8.2 L Magnesium AST Alkaline Phosphatase Total Creatine Kinase 309 H CK-MB (CK-2) 4.1 H Troponin T 0.470 H* D C-Reactive Protein Total Protein Albumin Cholesterol LDL Cholesterol Direct HDL Cholesterol Free T4 Urine WBC (Auto) Urine Creatinine Urine Total Protein Crossmatch 08/13/18 08/13/18 08/13/18 12:53 12:53 17:55 WBC RBC Hgb Hct MCV MCH MCHC RDW Lymph % (Auto) [place] % (Auto) Eos % (Auto) Lymph # [place] # Eos # Seg Neutrophils % Seg Neuts % (Manual) Lymphocytes % (Manual) Seg Neutrophils # Seg Neutrophils # Man Lymphocytes # (Manual) Eosinophils # (Manual) PT INR APTT D-Dimer Heparin Anti-Xa Level POC ABG pH POC ABG pCO2 POC ABG pO2 Sodium Potassium Chloride Carbon Dioxide BUN Creatinine Glucose POC Glucose 308 H Lactic Acid 2.80 H* Calcium Magnesium 2.50 H AST Alkaline Phosphatase Total Creatine Kinase CK-MB (CK-2) Troponin T C-Reactive Protein 16.90 H Total Protein Albumin Cholesterol LDL Cholesterol Direct HDL Cholesterol Free T4 Urine WBC (Auto) Urine Creatinine Urine Total Protein Crossmatch 08/13/18 08/13/18 08/13/18 20:07 21:16 23:17 WBC RBC Hgb Hct MCV MCH MCHC RDW Lymph % (Auto) [place] % (Auto) Eos % (Auto) Lymph # [place] # Eos # Seg Neutrophils % Seg Neuts % (Manual) Lymphocytes % (Manual) Seg Neutrophils # Seg Neutrophils # Man Lymphocytes # (Manual) Eosinophils # (Manual) PT INR APTT D-Dimer 2742.50 H Heparin Anti-Xa Level POC ABG pH 7.483 H POC ABG pCO2 30.8 L POC ABG pO2 150 H Sodium Potassium Chloride Carbon Dioxide BUN Creatinine Glucose POC Glucose 245 H Lactic Acid Calcium Magnesium AST Alkaline Phosphatase Total Creatine Kinase CK-MB (CK-2) Troponin T C-Reactive Protein Total Protein Albumin Cholesterol LDL Cholesterol Direct HDL Cholesterol Free T4 Urine WBC (Auto) Urine Creatinine Urine Total Protein Crossmatch 08/14/18 08/14/18 08/14/18 04:03 04:03 04:56 WBC 18.2 H RBC 2.62 L Hgb 7.3 L Hct 24.5 L MCV MCH MCHC RDW 18.9 H Lymph % (Auto) [place] % (Auto) Eos % (Auto) Lymph # [place] # 1.2 H Eos # Seg Neutrophils % 79.4 H Seg Neuts % (Manual) Lymphocytes % (Manual) Seg Neutrophils # 14.5 H Seg Neutrophils # Man Lymphocytes # (Manual) Eosinophils # (Manual) PT INR APTT D-Dimer Heparin Anti-Xa Level POC ABG pH POC ABG pCO2 33.5 L POC ABG pO2 153 H Sodium 152 H Potassium 3.4 L Chloride 113.8 H Carbon Dioxide BUN 72 H Creatinine 2.7 H Glucose 239 H POC Glucose Lactic Acid Calcium 7.6 L Magnesium AST 50 H Alkaline Phosphatase 219 H Total Creatine Kinase CK-MB (CK-2) Troponin T 0.409 H* C-Reactive Protein Total Protein 6.2 L Albumin 1.9 L Cholesterol LDL Cholesterol Direct HDL Cholesterol Free T4 Urine WBC (Auto) Urine Creatinine Urine Total Protein Crossmatch 08/14/18 08/14/18 08/14/18 05:18 13:38 15:35 WBC RBC Hgb Hct MCV MCH MCHC RDW Lymph % (Auto) [place] % (Auto) Eos % (Auto) Lymph # [place] # Eos # Seg Neutrophils % Seg Neuts % (Manual) Lymphocytes % (Manual) Seg Neutrophils # Seg Neutrophils # Man Lymphocytes # (Manual) Eosinophils # (Manual) PT INR APTT D-Dimer Heparin Anti-Xa Level POC ABG pH POC ABG pCO2 POC ABG pO2 Sodium 150 H Potassium 3.2 L Chloride 114.5 H Carbon Dioxide BUN 69 H Creatinine 2.3 H Glucose 247 H POC Glucose 242 H 296 H Lactic Acid Calcium 7.2 L Magnesium AST Alkaline Phosphatase Total Creatine Kinase CK-MB (CK-2) Troponin T C-Reactive Protein Total Protein Albumin Cholesterol LDL Cholesterol Direct HDL Cholesterol Free T4 Urine WBC (Auto) Urine Creatinine Urine Total Protein Crossmatch 08/14/18 08/14/18 08/14/18 17:01 17:20 23:47 WBC RBC Hgb Hct MCV MCH MCHC RDW Lymph % (Auto) [place] % (Auto) Eos % (Auto) Lymph # [place] # Eos # Seg Neutrophils % Seg Neuts % (Manual) Lymphocytes % (Manual) Seg Neutrophils # Seg Neutrophils # Man Lymphocytes # (Manual) Eosinophils # (Manual) PT INR APTT D-Dimer Heparin Anti-Xa Level POC ABG pH POC ABG pCO2 POC ABG pO2 Sodium Potassium Chloride Carbon Dioxide BUN Creatinine Glucose POC Glucose 261 H 280 H Lactic Acid Calcium Magnesium AST Alkaline Phosphatase Total Creatine Kinase CK-MB (CK-2) Troponin T C-Reactive Protein Total Protein Albumin Cholesterol LDL Cholesterol Direct HDL Cholesterol Free T4 Urine WBC (Auto) Urine Creatinine 60.9 H Urine Total Protein 64 H Crossmatch 08/15/18 08/15/18 08/15/18 04:05 04:05 04:05 WBC RBC Hgb 6.3 L Hct 19.7 L* MCV MCH MCHC RDW Lymph % (Auto) [place] % (Auto) Eos % (Auto) Lymph # [place] # Eos # Seg Neutrophils % Seg Neuts % (Manual) Lymphocytes % (Manual) Seg Neutrophils # Seg Neutrophils # Man Lymphocytes # (Manual) Eosinophils # (Manual) PT INR APTT D-Dimer Heparin Anti-Xa Level 0.17 L POC ABG pH POC ABG pCO2 POC ABG pO2 Sodium 146 H Potassium 3.0 L Chloride 110.6 H Carbon Dioxide BUN 64 H Creatinine 2.2 H Glucose 231 H POC Glucose Lactic Acid Calcium 7.1 L Magnesium AST Alkaline Phosphatase Total Creatine Kinase CK-MB (CK-2) Troponin T C-Reactive Protein Total Protein Albumin Cholesterol LDL Cholesterol Direct HDL Cholesterol Free T4 Urine WBC (Auto) Urine Creatinine Urine Total Protein Crossmatch 08/15/18 08/15/18 08/15/18 05:21 05:26 06:35 WBC RBC Hgb Hct MCV MCH MCHC RDW Lymph % (Auto) [place] % (Auto) Eos % (Auto) Lymph # [place] # Eos # Seg Neutrophils % Seg Neuts % (Manual) Lymphocytes % (Manual) Seg Neutrophils # Seg Neutrophils # Man Lymphocytes # (Manual) Eosinophils # (Manual) PT INR APTT 79.0 H* D-Dimer Heparin Anti-Xa Level POC ABG pH 7.494 H POC ABG pCO2 POC ABG pO2 155 H Sodium Potassium Chloride Carbon Dioxide BUN Creatinine Glucose POC Glucose 271 H Lactic Acid Calcium Magnesium AST Alkaline Phosphatase Total Creatine Kinase CK-MB (CK-2) Troponin T C-Reactive Protein Total Protein Albumin Cholesterol LDL Cholesterol Direct HDL Cholesterol Free T4 Urine WBC (Auto) Urine Creatinine Urine Total Protein Crossmatch 08/15/18 08/15/18 08/15/18 12:10 15:31 17:27 WBC RBC Hgb Hct MCV MCH MCHC RDW Lymph % (Auto) [place] % (Auto) Eos % (Auto) Lymph # [place] # Eos # Seg Neutrophils % Seg Neuts % (Manual) Lymphocytes % (Manual) Seg Neutrophils # Seg Neutrophils # Man Lymphocytes # (Manual) Eosinophils # (Manual) PT INR APTT D-Dimer Heparin Anti-Xa Level POC ABG pH POC ABG pCO2 POC ABG pO2 Sodium Potassium Chloride Carbon Dioxide BUN Creatinine Glucose POC Glucose 301 H 287 H Lactic Acid Calcium Magnesium AST Alkaline Phosphatase Total Creatine Kinase CK-MB (CK-2) Troponin T C-Reactive Protein Total Protein Albumin Cholesterol LDL Cholesterol Direct HDL Cholesterol Free T4 Urine WBC (Auto) Urine Creatinine Urine Total Protein Crossmatch See Detail 08/15/18 08/15/18 08/16/18 21:41 23:45 04:13 WBC RBC Hgb Hct MCV MCH MCHC RDW Lymph % (Auto) [place] % (Auto) Eos % (Auto) Lymph # [place] # Eos # Seg Neutrophils % Seg Neuts % (Manual) Lymphocytes % (Manual) Seg Neutrophils # Seg Neutrophils # Man Lymphocytes # (Manual) Eosinophils # (Manual) PT INR APTT D-Dimer Heparin Anti-Xa Level 0.19 L POC ABG pH POC ABG pCO2 32.1 L POC ABG pO2 107 H Sodium Potassium Chloride Carbon Dioxide BUN Creatinine Glucose POC Glucose 163 H Lactic Acid Calcium Magnesium AST Alkaline Phosphatase Total Creatine Kinase CK-MB (CK-2) Troponin T C-Reactive Protein Total Protein Albumin Cholesterol LDL Cholesterol Direct HDL Cholesterol Free T4 Urine WBC (Auto) Urine Creatinine Urine Total Protein Crossmatch 08/16/18 08/16/18 08/16/18 04:50 05:28 11:30 WBC RBC 2.67 L Hgb 8.1 L Hct 23.4 L MCV MCH MCHC 35 H RDW 18.3 H Lymph % (Auto) [place] % (Auto) Eos % (Auto) Lymph # [place] # Eos # Seg Neutrophils % Seg Neuts % (Manual) Lymphocytes % (Manual) Seg Neutrophils # Seg Neutrophils # Man Lymphocytes # (Manual) Eosinophils # (Manual) PT INR APTT D-Dimer Heparin Anti-Xa Level 0.19 L POC ABG pH POC ABG pCO2 POC ABG pO2 Sodium Potassium Chloride Carbon Dioxide BUN Creatinine Glucose POC Glucose 141 H Lactic Acid Calcium Magnesium AST Alkaline Phosphatase Total Creatine Kinase CK-MB (CK-2) Troponin T C-Reactive Protein Total Protein Albumin Cholesterol LDL Cholesterol Direct HDL Cholesterol Free T4 Urine WBC (Auto) Urine Creatinine Urine Total Protein Crossmatch 08/16/18 08/16/18 08/16/18 11:30 12:00 12:01 WBC RBC Hgb Hct MCV MCH MCHC RDW Lymph % (Auto) [place] % (Auto) Eos % (Auto) Lymph # [place] # Eos # Seg Neutrophils % Seg Neuts % (Manual) Lymphocytes % (Manual) Seg Neutrophils # Seg Neutrophils # Man Lymphocytes # (Manual) Eosinophils # (Manual) PT INR APTT D-Dimer Heparin Anti-Xa Level 0.15 L POC ABG pH POC ABG pCO2 POC ABG pO2 Sodium Potassium Chloride 107.8 H Carbon Dioxide 21 L BUN 47 H Creatinine 1.6 H Glucose 221 H POC Glucose 267 H Lactic Acid Calcium 6.9 L Magnesium AST Alkaline Phosphatase Total Creatine Kinase CK-MB (CK-2) Troponin T C-Reactive Protein Total Protein Albumin Cholesterol LDL Cholesterol Direct HDL Cholesterol Free T4 Urine WBC (Auto) Urine Creatinine Urine Total Protein Crossmatch 08/16/18 08/16/18 08/16/18 17:23 20:01 23:13 WBC RBC Hgb Hct MCV MCH MCHC RDW Lymph % (Auto) [place] % (Auto) Eos % (Auto) Lymph # [place] # Eos # Seg Neutrophils % Seg Neuts % (Manual) Lymphocytes % (Manual) Seg Neutrophils # Seg Neutrophils # Man Lymphocytes # (Manual) Eosinophils # (Manual) PT INR APTT D-Dimer Heparin Anti-Xa Level 0.26 L POC ABG pH POC ABG pCO2 POC ABG pO2 Sodium Potassium Chloride Carbon Dioxide BUN Creatinine Glucose POC Glucose 245 H 256 H Lactic Acid Calcium Magnesium AST Alkaline Phosphatase Total Creatine Kinase CK-MB (CK-2) Troponin T C-Reactive Protein Total Protein Albumin Cholesterol LDL Cholesterol Direct HDL Cholesterol Free T4 Urine WBC (Auto) Urine Creatinine Urine Total Protein Crossmatch 08/17/18 08/17/18 08/17/18 04:29 04:55 05:34 WBC RBC Hgb 8.2 L Hct 24.3 L MCV MCH MCHC RDW Lymph % (Auto) [place] % (Auto) Eos % (Auto) Lymph # [place] # Eos # Seg Neutrophils % Seg Neuts % (Manual) Lymphocytes % (Manual) Seg Neutrophils # Seg Neutrophils # Man Lymphocytes # (Manual) Eosinophils # (Manual) PT INR APTT D-Dimer Heparin Anti-Xa Level POC ABG pH POC ABG pCO2 32.4 L POC ABG pO2 108 H Sodium Potassium Chloride Carbon Dioxide BUN Creatinine Glucose POC Glucose 268 H Lactic Acid Calcium Magnesium AST Alkaline Phosphatase Total Creatine Kinase CK-MB (CK-2) Troponin T C-Reactive Protein Total Protein Albumin Cholesterol LDL Cholesterol Direct HDL Cholesterol Free T4 Urine WBC (Auto) Urine Creatinine Urine Total Protein Crossmatch 08/17/18 08/17/18 08/17/18 11:54 13:44 17:24 WBC RBC Hgb Hct MCV MCH MCHC RDW Lymph % (Auto) [place] % (Auto) Eos % (Auto) Lymph # [place] # Eos # Seg Neutrophils % Seg Neuts % (Manual) Lymphocytes % (Manual) Seg Neutrophils # Seg Neutrophils # Man Lymphocytes # (Manual) Eosinophils # (Manual) PT INR APTT D-Dimer Heparin Anti-Xa Level POC ABG pH POC ABG pCO2 32.7 L POC ABG pO2 142 H Sodium Potassium Chloride Carbon Dioxide BUN Creatinine Glucose POC Glucose 295 H 283 H Lactic Acid Calcium Magnesium AST Alkaline Phosphatase Total Creatine Kinase CK-MB (CK-2) Troponin T C-Reactive Protein Total Protein Albumin Cholesterol LDL Cholesterol Direct HDL Cholesterol Free T4 Urine WBC (Auto) Urine Creatinine Urine Total Protein Crossmatch 08/18/18 08/18/18 08/18/18 00:05 00:59 04:15 WBC RBC Hgb Hct MCV MCH MCHC RDW Lymph % (Auto) [place] % (Auto) Eos % (Auto) Lymph # [place] # Eos # Seg Neutrophils % Seg Neuts % (Manual) Lymphocytes % (Manual) Seg Neutrophils # Seg Neutrophils # Man Lymphocytes # (Manual) Eosinophils # (Manual) PT INR APTT D-Dimer Heparin Anti-Xa Level POC ABG pH POC ABG pCO2 POC ABG pO2 115 H Sodium Potassium Chloride Carbon Dioxide BUN Creatinine Glucose POC Glucose 247 H 251 H Lactic Acid Calcium Magnesium AST Alkaline Phosphatase Total Creatine Kinase CK-MB (CK-2) Troponin T C-Reactive Protein Total Protein Albumin Cholesterol LDL Cholesterol Direct HDL Cholesterol Free T4 Urine WBC (Auto) Urine Creatinine Urine Total Protein Crossmatch 08/18/18 08/18/18 08/18/18 05:02 12:20 17:51 WBC RBC Hgb Hct MCV MCH MCHC RDW Lymph % (Auto) [place] % (Auto) Eos % (Auto) Lymph # [place] # Eos # Seg Neutrophils % Seg Neuts % (Manual) Lymphocytes % (Manual) Seg Neutrophils # Seg Neutrophils # Man Lymphocytes # (Manual) Eosinophils # (Manual) PT INR APTT D-Dimer Heparin Anti-Xa Level POC ABG pH POC ABG pCO2 POC ABG pO2 Sodium Potassium Chloride Carbon Dioxide BUN Creatinine Glucose POC Glucose 282 H 209 H 261 H Lactic Acid Calcium Magnesium AST Alkaline Phosphatase Total Creatine Kinase CK-MB (CK-2) Troponin T C-Reactive Protein Total Protein Albumin Cholesterol LDL Cholesterol Direct HDL Cholesterol Free T4 Urine WBC (Auto) Urine Creatinine Urine Total Protein Crossmatch 08/18/18 08/19/18 08/19/18 23:30 04:54 05:16 WBC RBC 2.62 L Hgb 7.5 L Hct 23.1 L MCV MCH MCHC RDW 18.1 H Lymph % (Auto) [place] % (Auto) Eos % (Auto) Lymph # [place] # Eos # Seg Neutrophils % Seg Neuts % (Manual) Lymphocytes % (Manual) Seg Neutrophils # Seg Neutrophils # Man Lymphocytes # (Manual) Eosinophils # (Manual) PT INR APTT D-Dimer Heparin Anti-Xa Level POC ABG pH POC ABG pCO2 POC ABG pO2 58 L Sodium Potassium Chloride Carbon Dioxide BUN Creatinine Glucose POC Glucose 231 H Lactic Acid Calcium Magnesium AST Alkaline Phosphatase Total Creatine Kinase CK-MB (CK-2) Troponin T C-Reactive Protein Total Protein Albumin Cholesterol LDL Cholesterol Direct HDL Cholesterol Free T4 Urine WBC (Auto) Urine Creatinine Urine Total Protein Crossmatch 08/19/18 08/19/18 08/19/18 05:16 05:40 11:56 WBC RBC Hgb Hct MCV MCH MCHC RDW Lymph % (Auto) [place] % (Auto) Eos % (Auto) Lymph # [place] # Eos # Seg Neutrophils % Seg Neuts % (Manual) Lymphocytes % (Manual) Seg Neutrophils # Seg Neutrophils # Man Lymphocytes # (Manual) Eosinophils # (Manual) PT INR APTT D-Dimer Heparin Anti-Xa Level POC ABG pH POC ABG pCO2 POC ABG pO2 Sodium 152 H D Potassium Chloride 118.7 H Carbon Dioxide BUN 38 H Creatinine Glucose 220 H POC Glucose 227 H 213 H Lactic Acid Calcium 8.1 L D Magnesium AST Alkaline Phosphatase Total Creatine Kinase CK-MB (CK-2) Troponin T C-Reactive Protein Total Protein Albumin Cholesterol LDL Cholesterol Direct HDL Cholesterol Free T4 Urine WBC (Auto) Urine Creatinine Urine Total Protein Crossmatch 08/19/18 08/19/18 08/20/18 18:37 23:32 04:38 WBC RBC Hgb Hct MCV MCH MCHC RDW Lymph % (Auto) [place] % (Auto) Eos % (Auto) Lymph # [place] # Eos # Seg Neutrophils % Seg Neuts % (Manual) Lymphocytes % (Manual) Seg Neutrophils # Seg Neutrophils # Man Lymphocytes # (Manual) Eosinophils # (Manual) PT INR APTT D-Dimer Heparin Anti-Xa Level POC ABG pH POC ABG pCO2 POC ABG pO2 140 H Sodium Potassium Chloride Carbon Dioxide BUN Creatinine Glucose POC Glucose 227 H 245 H Lactic Acid Calcium Magnesium AST Alkaline Phosphatase Total Creatine Kinase CK-MB (CK-2) Troponin T C-Reactive Protein Total Protein Albumin Cholesterol LDL Cholesterol Direct HDL Cholesterol Free T4 Urine WBC (Auto) Urine Creatinine Urine Total Protein Crossmatch 08/20/18 08/20/18 08/20/18 05:31 05:37 05:37 WBC RBC 2.60 L Hgb 7.5 L Hct 22.9 L MCV MCH MCHC RDW 18.4 H Lymph % (Auto) [place] % (Auto) Eos % (Auto) Lymph # [place] # Eos # Seg Neutrophils % Seg Neuts % (Manual) Lymphocytes % (Manual) Seg Neutrophils # Seg Neutrophils # Man Lymphocytes # (Manual) Eosinophils # (Manual) PT INR APTT D-Dimer Heparin Anti-Xa Level POC ABG pH POC ABG pCO2 POC ABG pO2 Sodium 150 H Potassium Chloride 115.6 H Carbon Dioxide BUN 38 H Creatinine Glucose 276 H POC Glucose 266 H Lactic Acid Calcium 7.9 L Magnesium AST Alkaline Phosphatase Total Creatine Kinase CK-MB (CK-2) Troponin T C-Reactive Protein Total Protein Albumin Cholesterol LDL Cholesterol Direct HDL Cholesterol Free T4 Urine WBC (Auto) Urine Creatinine Urine Total Protein Crossmatch 08/20/18 08/20/18 08/20/18 14:01 18:20 23:11 WBC RBC Hgb Hct MCV MCH MCHC RDW Lymph % (Auto) [place] % (Auto) Eos % (Auto) Lymph # [place] # Eos # Seg Neutrophils % Seg Neuts % (Manual) Lymphocytes % (Manual) Seg Neutrophils # Seg Neutrophils # Man Lymphocytes # (Manual) Eosinophils # (Manual) PT INR APTT D-Dimer Heparin Anti-Xa Level POC ABG pH POC ABG pCO2 POC ABG pO2 Sodium Potassium Chloride Carbon Dioxide BUN Creatinine Glucose POC Glucose 305 H 271 H 218 H Lactic Acid Calcium Magnesium AST Alkaline Phosphatase Total Creatine Kinase CK-MB (CK-2) Troponin T C-Reactive Protein Total Protein Albumin Cholesterol LDL Cholesterol Direct HDL Cholesterol Free T4 Urine WBC (Auto) Urine Creatinine Urine Total Protein Crossmatch 08/21/18 08/21/18 08/21/18 04:41 04:41 06:20 WBC RBC 2.65 L Hgb 7.6 L Hct 23.3 L MCV MCH MCHC RDW 19.1 H Lymph % (Auto) [place] % (Auto) Eos % (Auto) Lymph # [place] # Eos # Seg Neutrophils % Seg Neuts % (Manual) Lymphocytes % (Manual) Seg Neutrophils # Seg Neutrophils # Man Lymphocytes # (Manual) Eosinophils # (Manual) PT INR APTT D-Dimer Heparin Anti-Xa Level POC ABG pH POC ABG pCO2 POC ABG pO2 Sodium 150 H Potassium Chloride 117.8 H Carbon Dioxide BUN 37 H Creatinine Glucose 233 H POC Glucose 262 H Lactic Acid Calcium 7.9 L Magnesium AST Alkaline Phosphatase Total Creatine Kinase CK-MB (CK-2) Troponin T C-Reactive Protein Total Protein Albumin Cholesterol LDL Cholesterol Direct HDL Cholesterol Free T4 Urine WBC (Auto) Urine Creatinine Urine Total Protein Crossmatch 08/21/18 08/21/18 08/21/18 10:18 12:04 12:36 WBC RBC Hgb Hct MCV MCH MCHC RDW Lymph % (Auto) [place] % (Auto) Eos % (Auto) Lymph # [place] # Eos # Seg Neutrophils % Seg Neuts % (Manual) Lymphocytes % (Manual) Seg Neutrophils # Seg Neutrophils # Man Lymphocytes # (Manual) Eosinophils # (Manual) PT INR APTT D-Dimer Heparin Anti-Xa Level POC ABG pH POC ABG pCO2 POC ABG pO2 Sodium Potassium Chloride Carbon Dioxide BUN Creatinine Glucose POC Glucose 256 H 245 H 255 H Lactic Acid Calcium Magnesium AST Alkaline Phosphatase Total Creatine Kinase CK-MB (CK-2) Troponin T C-Reactive Protein Total Protein Albumin Cholesterol LDL Cholesterol Direct HDL Cholesterol Free T4 Urine WBC (Auto) Urine Creatinine Urine Total Protein Crossmatch 08/21/18 08/21/18 08/22/18 17:36 23:29 05:01 WBC RBC Hgb Hct MCV MCH MCHC RDW Lymph % (Auto) [place] % (Auto) Eos % (Auto) Lymph # [place] # Eos # Seg Neutrophils % Seg Neuts % (Manual) Lymphocytes % (Manual) Seg Neutrophils # Seg Neutrophils # Man Lymphocytes # (Manual) Eosinophils # (Manual) PT INR APTT D-Dimer Heparin Anti-Xa Level POC ABG pH 7.466 H POC ABG pCO2 33.8 L POC ABG pO2 111 H Sodium Potassium Chloride Carbon Dioxide BUN Creatinine Glucose POC Glucose 263 H 268 H Lactic Acid Calcium Magnesium AST Alkaline Phosphatase Total Creatine Kinase CK-MB (CK-2) Troponin T C-Reactive Protein Total Protein Albumin Cholesterol LDL Cholesterol Direct HDL Cholesterol Free T4 Urine WBC (Auto) Urine Creatinine Urine Total Protein Crossmatch 08/22/18 08/22/18 08/22/18 05:05 12:05 12:15 WBC RBC Hgb Hct MCV MCH MCHC RDW Lymph % (Auto) [place] % (Auto) Eos % (Auto) Lymph # [place] # Eos # Seg Neutrophils % Seg Neuts % (Manual) Lymphocytes % (Manual) Seg Neutrophils # Seg Neutrophils # Man Lymphocytes # (Manual) Eosinophils # (Manual) PT INR APTT D-Dimer Heparin Anti-Xa Level POC ABG pH POC ABG pCO2 POC ABG pO2 Sodium 147 H Potassium Chloride 113.2 H Carbon Dioxide BUN 36 H Creatinine Glucose 249 H POC Glucose 256 H 228 H Lactic Acid Calcium 8.2 L Magnesium AST Alkaline Phosphatase Total Creatine Kinase CK-MB (CK-2) Troponin T C-Reactive Protein Total Protein Albumin Cholesterol LDL Cholesterol Direct HDL Cholesterol Free T4 Urine WBC (Auto) Urine Creatinine Urine Total Protein Crossmatch 08/22/18 08/23/18 08/23/18 17:30 00:03 05:05 WBC RBC Hgb Hct MCV MCH MCHC RDW Lymph % (Auto) [place] % (Auto) Eos % (Auto) Lymph # [place] # Eos # Seg Neutrophils % Seg Neuts % (Manual) Lymphocytes % (Manual) Seg Neutrophils # Seg Neutrophils # Man Lymphocytes # (Manual) Eosinophils # (Manual) PT INR APTT D-Dimer Heparin Anti-Xa Level POC ABG pH POC ABG pCO2 POC ABG pO2 Sodium Potassium Chloride Carbon Dioxide BUN Creatinine Glucose POC Glucose 291 H 259 H 247 H Lactic Acid Calcium Magnesium AST Alkaline Phosphatase Total Creatine Kinase CK-MB (CK-2) Troponin T C-Reactive Protein Total Protein Albumin Cholesterol LDL Cholesterol Direct HDL Cholesterol Free T4 Urine WBC (Auto) Urine Creatinine Urine Total Protein Crossmatch 08/23/18 08/23/18 08/23/18 05:14 12:29 17:21 WBC RBC Hgb Hct MCV MCH MCHC RDW Lymph % (Auto) [place] % (Auto) Eos % (Auto) Lymph # [place] # Eos # Seg Neutrophils % Seg Neuts % (Manual) Lymphocytes % (Manual) Seg Neutrophils # Seg Neutrophils # Man Lymphocytes # (Manual) Eosinophils # (Manual) PT INR APTT D-Dimer Heparin Anti-Xa Level POC ABG pH POC ABG pCO2 POC ABG pO2 Sodium Potassium Chloride Carbon Dioxide BUN Creatinine Glucose POC Glucose 208 H 138 H 175 H Lactic Acid Calcium Magnesium AST Alkaline Phosphatase Total Creatine Kinase CK-MB (CK-2) Troponin T C-Reactive Protein Total Protein Albumin Cholesterol LDL Cholesterol Direct HDL Cholesterol Free T4 Urine WBC (Auto) Urine Creatinine Urine Total Protein Crossmatch 08/23/18 08/24/18 08/24/18 23:36 01:00 05:50 WBC RBC 2.92 L 2.90 L Hgb 8.3 L 8.2 L Hct 25.4 L 25.2 L MCV MCH MCHC RDW 18.9 H 18.6 H Lymph % (Auto) [place] % (Auto) 9.2 H Eos % (Auto) Lymph # [place] # Eos # Seg Neutrophils % Seg Neuts % (Manual) Lymphocytes % (Manual) Seg Neutrophils # Seg Neutrophils # Man Lymphocytes # (Manual) Eosinophils # (Manual) PT INR APTT D-Dimer Heparin Anti-Xa Level POC ABG pH POC ABG pCO2 POC ABG pO2 Sodium Potassium Chloride Carbon Dioxide BUN Creatinine Glucose POC Glucose 163 H Lactic Acid Calcium Magnesium AST Alkaline Phosphatase Total Creatine Kinase CK-MB (CK-2) Troponin T C-Reactive Protein Total Protein Albumin Cholesterol LDL Cholesterol Direct HDL Cholesterol Free T4 Urine WBC (Auto) Urine Creatinine Urine Total Protein Crossmatch 08/24/18 08/24/18 08/24/18 05:50 12:26 18:37 WBC RBC Hgb Hct MCV MCH MCHC RDW Lymph % (Auto) [place] % (Auto) Eos % (Auto) Lymph # [place] # Eos # Seg Neutrophils % Seg Neuts % (Manual) Lymphocytes % (Manual) Seg Neutrophils # Seg Neutrophils # Man Lymphocytes # (Manual) Eosinophils # (Manual) PT INR APTT D-Dimer Heparin Anti-Xa Level POC ABG pH POC ABG pCO2 POC ABG pO2 Sodium 147 H Potassium Chloride 113.6 H Carbon Dioxide BUN 33 H Creatinine Glucose 210 H POC Glucose 223 H 166 H Lactic Acid Calcium 8.3 L Magnesium AST Alkaline Phosphatase Total Creatine Kinase CK-MB (CK-2) Troponin T C-Reactive Protein Total Protein Albumin Cholesterol LDL Cholesterol Direct HDL Cholesterol Free T4 Urine WBC (Auto) Urine Creatinine Urine Total Protein Crossmatch 08/24/18 08/25/18 08/25/18 23:47 04:55 04:55 WBC RBC 2.94 L Hgb 8.4 L Hct 25.1 L MCV MCH MCHC RDW 18.2 H Lymph % (Auto) [place] % (Auto) Eos % (Auto) Lymph # [place] # Eos # Seg Neutrophils % Seg Neuts % (Manual) Lymphocytes % (Manual) Seg Neutrophils # Seg Neutrophils # Man Lymphocytes # (Manual) Eosinophils # (Manual) PT INR APTT D-Dimer Heparin Anti-Xa Level POC ABG pH POC ABG pCO2 POC ABG pO2 Sodium Potassium Chloride 110.2 H Carbon Dioxide BUN 30 H Creatinine Glucose POC Glucose 126 H Lactic Acid Calcium 8.1 L Magnesium AST Alkaline Phosphatase Total Creatine Kinase CK-MB (CK-2) Troponin T C-Reactive Protein Total Protein Albumin Cholesterol LDL Cholesterol Direct HDL Cholesterol Free T4 Urine WBC (Auto) Urine Creatinine Urine Total Protein Crossmatch 08/25/18 08/26/18 08/26/18 12:40 04:39 04:39 WBC RBC 2.96 L Hgb 8.3 L Hct 25.7 L MCV MCH MCHC RDW 18.2 H Lymph % (Auto) 10.5 L [place] % (Auto) 9.3 H Eos % (Auto) Lymph # 0.8 L [place] # Eos # Seg Neutrophils % 77.0 H Seg Neuts % (Manual) Lymphocytes % (Manual) Seg Neutrophils # Seg Neutrophils # Man Lymphocytes # (Manual) Eosinophils # (Manual) PT INR APTT D-Dimer Heparin Anti-Xa Level POC ABG pH POC ABG pCO2 POC ABG pO2 Sodium 147 H Potassium Chloride 113.5 H Carbon Dioxide BUN 27 H Creatinine 0.7 L Glucose 106 H POC Glucose Lactic Acid Calcium 8.0 L Magnesium AST Alkaline Phosphatase Total Creatine Kinase CK-MB (CK-2) Troponin T C-Reactive Protein Total Protein Albumin Cholesterol LDL Cholesterol Direct HDL Cholesterol Free T4 Urine WBC (Auto) > 182.0 H Urine Creatinine Urine Total Protein Crossmatch 08/26/18 08/26/18 08/26/18 05:27 09:00 09:54 WBC RBC Hgb Hct MCV MCH MCHC RDW Lymph % (Auto) [place] % (Auto) Eos % (Auto) Lymph # [place] # Eos # Seg Neutrophils % Seg Neuts % (Manual) Lymphocytes % (Manual) Seg Neutrophils # Seg Neutrophils # Man Lymphocytes # (Manual) Eosinophils # (Manual) PT INR APTT D-Dimer Heparin Anti-Xa Level POC ABG pH POC ABG pCO2 POC ABG pO2 Sodium Potassium Chloride Carbon Dioxide BUN Creatinine Glucose POC Glucose 120 H 170 H Lactic Acid Calcium Magnesium AST Alkaline Phosphatase Total Creatine Kinase CK-MB (CK-2) Troponin T C-Reactive Protein Total Protein Albumin Cholesterol LDL Cholesterol Direct HDL Cholesterol Free T4 0.51 L Urine WBC (Auto) Urine Creatinine Urine Total Protein Crossmatch 08/26/18 08/26/18 08/27/18 14:52 17:50 06:30 WBC RBC Hgb Hct MCV MCH MCHC RDW Lymph % (Auto) [place] % (Auto) Eos % (Auto) Lymph # [place] # Eos # Seg Neutrophils % Seg Neuts % (Manual) Lymphocytes % (Manual) Seg Neutrophils # Seg Neutrophils # Man Lymphocytes # (Manual) Eosinophils # (Manual) PT INR APTT D-Dimer Heparin Anti-Xa Level POC ABG pH POC ABG pCO2 POC ABG pO2 Sodium 150 H Potassium Chloride 114.8 H Carbon Dioxide BUN 24 H Creatinine 0.7 L Glucose 131 H POC Glucose 166 H 107 H Lactic Acid Calcium 7.8 L Magnesium AST Alkaline Phosphatase Total Creatine Kinase CK-MB (CK-2) Troponin T C-Reactive Protein Total Protein Albumin Cholesterol LDL Cholesterol Direct HDL Cholesterol Free T4 Urine WBC (Auto) Urine Creatinine Urine Total Protein Crossmatch 08/27/18 08/27/18 08/27/18 08:22 14:20 16:06 WBC RBC Hgb Hct MCV MCH MCHC RDW Lymph % (Auto) [place] % (Auto) Eos % (Auto) Lymph # [place] # Eos # Seg Neutrophils % Seg Neuts % (Manual) Lymphocytes % (Manual) Seg Neutrophils # Seg Neutrophils # Man Lymphocytes # (Manual) Eosinophils # (Manual) PT INR APTT D-Dimer Heparin Anti-Xa Level POC ABG pH POC ABG pCO2 POC ABG pO2 Sodium Potassium Chloride Carbon Dioxide BUN Creatinine Glucose POC Glucose 112 H 151 H 158 H Lactic Acid Calcium Magnesium AST Alkaline Phosphatase Total Creatine Kinase CK-MB (CK-2) Troponin T C-Reactive Protein Total Protein Albumin Cholesterol LDL Cholesterol Direct HDL Cholesterol Free T4 Urine WBC (Auto) Urine Creatinine Urine Total Protein Crossmatch 08/27/18 08/27/18 08/28/18 20:09 21:25 02:03 WBC RBC Hgb Hct MCV MCH MCHC RDW Lymph % (Auto) [place] % (Auto) Eos % (Auto) Lymph # [place] # Eos # Seg Neutrophils % Seg Neuts % (Manual) Lymphocytes % (Manual) Seg Neutrophils # Seg Neutrophils # Man Lymphocytes # (Manual) Eosinophils # (Manual) PT INR APTT D-Dimer Heparin Anti-Xa Level POC ABG pH POC ABG pCO2 POC ABG pO2 130 H Sodium Potassium Chloride Carbon Dioxide BUN Creatinine Glucose POC Glucose 226 H 250 H Lactic Acid Calcium Magnesium AST Alkaline Phosphatase Total Creatine Kinase CK-MB (CK-2) Troponin T C-Reactive Protein Total Protein Albumin Cholesterol LDL Cholesterol Direct HDL Cholesterol Free T4 Urine WBC (Auto) Urine Creatinine Urine Total Protein Crossmatch 08/28/18 08/28/18 08/28/18 05:56 07:15 13:17 WBC RBC Hgb Hct MCV MCH MCHC RDW Lymph % (Auto) [place] % (Auto) Eos % (Auto) Lymph # [place] # Eos # Seg Neutrophils % Seg Neuts % (Manual) Lymphocytes % (Manual) Seg Neutrophils # Seg Neutrophils # Man Lymphocytes # (Manual) Eosinophils # (Manual) PT INR APTT D-Dimer Heparin Anti-Xa Level POC ABG pH POC ABG pCO2 POC ABG pO2 Sodium Potassium Chloride Carbon Dioxide BUN Creatinine Glucose 198 H POC Glucose 221 H 188 H Lactic Acid Calcium 7.7 L Magnesium AST Alkaline Phosphatase Total Creatine Kinase CK-MB (CK-2) Troponin T C-Reactive Protein Total Protein Albumin Cholesterol LDL Cholesterol Direct HDL Cholesterol Free T4 Urine WBC (Auto) Urine Creatinine Urine Total Protein Crossmatch 08/28/18 08/28/18 08/28/18 15:53 18:12 22:35 WBC RBC Hgb Hct MCV MCH MCHC RDW Lymph % (Auto) [place] % (Auto) Eos % (Auto) Lymph # [place] # Eos # Seg Neutrophils % Seg Neuts % (Manual) Lymphocytes % (Manual) Seg Neutrophils # Seg Neutrophils # Man Lymphocytes # (Manual) Eosinophils # (Manual) PT INR APTT D-Dimer Heparin Anti-Xa Level POC ABG pH 7.457 H POC ABG pCO2 POC ABG pO2 Sodium Potassium Chloride Carbon Dioxide BUN Creatinine Glucose POC Glucose 197 H 225 H Lactic Acid Calcium Magnesium AST Alkaline Phosphatase Total Creatine Kinase CK-MB (CK-2) Troponin T C-Reactive Protein Total Protein Albumin Cholesterol LDL Cholesterol Direct HDL Cholesterol Free T4 Urine WBC (Auto) Urine Creatinine Urine Total Protein Crossmatch 08/29/18 08/29/18 08/29/18 03:04 10:47 14:25 WBC RBC Hgb Hct MCV MCH MCHC RDW Lymph % (Auto) [place] % (Auto) Eos % (Auto) Lymph # [place] # Eos # Seg Neutrophils % Seg Neuts % (Manual) Lymphocytes % (Manual) Seg Neutrophils # Seg Neutrophils # Man Lymphocytes # (Manual) Eosinophils # (Manual) PT INR APTT D-Dimer Heparin Anti-Xa Level POC ABG pH POC ABG pCO2 POC ABG pO2 Sodium Potassium Chloride Carbon Dioxide BUN Creatinine Glucose POC Glucose 223 H 371 H 266 H Lactic Acid Calcium Magnesium AST Alkaline Phosphatase Total Creatine Kinase CK-MB (CK-2) Troponin T C-Reactive Protein Total Protein Albumin Cholesterol LDL Cholesterol Direct HDL Cholesterol Free T4 Urine WBC (Auto) Urine Creatinine Urine Total Protein Crossmatch 08/29/18 08/29/18 08/29/18 16:45 17:36 21:33 WBC RBC Hgb Hct MCV MCH MCHC RDW Lymph % (Auto) [place] % (Auto) Eos % (Auto) Lymph # [place] # Eos # Seg Neutrophils % Seg Neuts % (Manual) Lymphocytes % (Manual) Seg Neutrophils # Seg Neutrophils # Man Lymphocytes # (Manual) Eosinophils # (Manual) PT INR APTT D-Dimer Heparin Anti-Xa Level POC ABG pH POC ABG pCO2 POC ABG pO2 118 H Sodium Potassium Chloride Carbon Dioxide BUN Creatinine Glucose POC Glucose 253 H 204 H Lactic Acid Calcium Magnesium AST Alkaline Phosphatase Total Creatine Kinase CK-MB (CK-2) Troponin T C-Reactive Protein Total Protein Albumin Cholesterol LDL Cholesterol Direct HDL Cholesterol Free T4 Urine WBC (Auto) Urine Creatinine Urine Total Protein Crossmatch 08/30/18 08/30/18 08/30/18 01:33 05:27 05:40 WBC RBC 3.12 L Hgb 8.5 L Hct 25.9 L MCV 83 L MCH 27 L MCHC RDW 18.3 H Lymph % (Auto) [place] % (Auto) 7.8 H Eos % (Auto) 8.8 H Lymph # [place] # Eos # 0.6 H Seg Neutrophils % Seg Neuts % (Manual) Lymphocytes % (Manual) Seg Neutrophils # Seg Neutrophils # Man Lymphocytes # (Manual) Eosinophils # (Manual) PT INR APTT D-Dimer Heparin Anti-Xa Level POC ABG pH POC ABG pCO2 POC ABG pO2 Sodium Potassium Chloride Carbon Dioxide BUN Creatinine Glucose POC Glucose 157 H 178 H Lactic Acid Calcium Magnesium AST Alkaline Phosphatase Total Creatine Kinase CK-MB (CK-2) Troponin T C-Reactive Protein Total Protein Albumin Cholesterol LDL Cholesterol Direct HDL Cholesterol Free T4 Urine WBC (Auto) Urine Creatinine Urine Total Protein Crossmatch 08/30/18 08/30/18 08/30/18 05:40 09:28 11:41 WBC RBC Hgb Hct MCV MCH MCHC RDW Lymph % (Auto) [place] % (Auto) Eos % (Auto) Lymph # [place] # Eos # Seg Neutrophils % Seg Neuts % (Manual) Lymphocytes % (Manual) Seg Neutrophils # Seg Neutrophils # Man Lymphocytes # (Manual) Eosinophils # (Manual) PT INR APTT D-Dimer Heparin Anti-Xa Level POC ABG pH POC ABG pCO2 POC ABG pO2 Sodium Potassium Chloride Carbon Dioxide BUN Creatinine 0.7 L Glucose 189 H POC Glucose 216 H 257 H Lactic Acid Calcium 8.2 L Magnesium AST 50 H Alkaline Phosphatase 158 H Total Creatine Kinase CK-MB (CK-2) Troponin T C-Reactive Protein Total Protein Albumin 1.6 L Cholesterol LDL Cholesterol Direct HDL Cholesterol Free T4 Urine WBC (Auto) Urine Creatinine Urine Total Protein Crossmatch 08/30/18 08/30/18 08/30/18 14:34 17:07 21:56 WBC RBC Hgb Hct MCV MCH MCHC RDW Lymph % (Auto) [place] % (Auto) Eos % (Auto) Lymph # [place] # Eos # Seg Neutrophils % Seg Neuts % (Manual) Lymphocytes % (Manual) Seg Neutrophils # Seg Neutrophils # Man Lymphocytes # (Manual) Eosinophils # (Manual) PT INR APTT D-Dimer Heparin Anti-Xa Level POC ABG pH POC ABG pCO2 POC ABG pO2 Sodium Potassium Chloride Carbon Dioxide BUN Creatinine Glucose POC Glucose 263 H 263 H 234 H Lactic Acid Calcium Magnesium AST Alkaline Phosphatase Total Creatine Kinase CK-MB (CK-2) Troponin T C-Reactive Protein Total Protein Albumin Cholesterol LDL Cholesterol Direct HDL Cholesterol Free T4 Urine WBC (Auto) Urine Creatinine Urine Total Protein Crossmatch 08/31/18 08/31/18 08/31/18 02:02 05:29 09:24 WBC RBC Hgb Hct MCV MCH MCHC RDW Lymph % (Auto) [place] % (Auto) Eos % (Auto) Lymph # [place] # Eos # Seg Neutrophils % Seg Neuts % (Manual) Lymphocytes % (Manual) Seg Neutrophils # Seg Neutrophils # Man Lymphocytes # (Manual) Eosinophils # (Manual) PT INR APTT D-Dimer Heparin Anti-Xa Level POC ABG pH POC ABG pCO2 POC ABG pO2 Sodium Potassium Chloride Carbon Dioxide BUN Creatinine Glucose POC Glucose 151 H 156 H 107 H Lactic Acid Calcium Magnesium AST Alkaline Phosphatase Total Creatine Kinase CK-MB (CK-2) Troponin T C-Reactive Protein Total Protein Albumin Cholesterol LDL Cholesterol Direct HDL Cholesterol Free T4 Urine WBC (Auto) Urine Creatinine Urine Total Protein Crossmatch 08/31/18 08/31/18 08/31/18 13:51 17:28 21:40 WBC RBC Hgb Hct MCV MCH MCHC RDW Lymph % (Auto) [place] % (Auto) Eos % (Auto) Lymph # [place] # Eos # Seg Neutrophils % Seg Neuts % (Manual) Lymphocytes % (Manual) Seg Neutrophils # Seg Neutrophils # Man Lymphocytes # (Manual) Eosinophils # (Manual) PT INR APTT D-Dimer Heparin Anti-Xa Level POC ABG pH POC ABG pCO2 POC ABG pO2 Sodium Potassium Chloride Carbon Dioxide BUN Creatinine Glucose POC Glucose 170 H 239 H 209 H Lactic Acid Calcium Magnesium AST Alkaline Phosphatase Total Creatine Kinase CK-MB (CK-2) Troponin T C-Reactive Protein Total Protein Albumin Cholesterol LDL Cholesterol Direct HDL Cholesterol Free T4 Urine WBC (Auto) Urine Creatinine Urine Total Protein Crossmatch 08/31/18 08/31/18 09/01/18 22:25 22:25 01:47 WBC RBC Hgb Hct MCV MCH MCHC RDW Lymph % (Auto) [place] % (Auto) Eos % (Auto) Lymph # [place] # Eos # Seg Neutrophils % Seg Neuts % (Manual) Lymphocytes % (Manual) Seg Neutrophils # Seg Neutrophils # Man Lymphocytes # (Manual) Eosinophils # (Manual) PT INR APTT D-Dimer Heparin Anti-Xa Level POC ABG pH POC ABG pCO2 45.6 H POC ABG pO2 135 H Sodium Potassium Chloride Carbon Dioxide BUN Creatinine Glucose POC Glucose 208 H 223 H Lactic Acid Calcium Magnesium AST Alkaline Phosphatase Total Creatine Kinase CK-MB (CK-2) Troponin T C-Reactive Protein Total Protein Albumin Cholesterol LDL Cholesterol Direct HDL Cholesterol Free T4 Urine WBC (Auto) Urine Creatinine Urine Total Protein Crossmatch 09/01/18 09/01/18 09/01/18 05:18 05:19 05:19 WBC RBC 3.08 L Hgb 8.5 L Hct 25.6 L MCV 83 L MCH MCHC RDW 18.7 H Lymph % (Auto) [place] % (Auto) 7.9 H Eos % (Auto) 6.1 H Lymph # [place] # Eos # Seg Neutrophils % Seg Neuts % (Manual) Lymphocytes % (Manual) Seg Neutrophils # Seg Neutrophils # Man Lymphocytes # (Manual) Eosinophils # (Manual) PT INR APTT D-Dimer Heparin Anti-Xa Level POC ABG pH POC ABG pCO2 POC ABG pO2 Sodium Potassium Chloride 107.9 H Carbon Dioxide BUN 21 H Creatinine 0.7 L Glucose 188 H POC Glucose 236 H Lactic Acid Calcium Magnesium AST Alkaline Phosphatase Total Creatine Kinase CK-MB (CK-2) Troponin T C-Reactive Protein Total Protein Albumin Cholesterol LDL Cholesterol Direct HDL Cholesterol Free T4 Urine WBC (Auto) Urine Creatinine Urine Total Protein Crossmatch 09/01/18 09/01/18 09/01/18 09:29 14:25 18:20 WBC RBC Hgb Hct MCV MCH MCHC RDW Lymph % (Auto) [place] % (Auto) Eos % (Auto) Lymph # [place] # Eos # Seg Neutrophils % Seg Neuts % (Manual) Lymphocytes % (Manual) Seg Neutrophils # Seg Neutrophils # Man Lymphocytes # (Manual) Eosinophils # (Manual) PT INR APTT D-Dimer Heparin Anti-Xa Level POC ABG pH POC ABG pCO2 POC ABG pO2 Sodium Potassium Chloride Carbon Dioxide BUN Creatinine Glucose POC Glucose 231 H 294 H 215 H Lactic Acid Calcium Magnesium AST Alkaline Phosphatase Total Creatine Kinase CK-MB (CK-2) Troponin T C-Reactive Protein Total Protein Albumin Cholesterol LDL Cholesterol Direct HDL Cholesterol Free T4 Urine WBC (Auto) Urine Creatinine Urine Total Protein Crossmatch 09/01/18 09/02/18 09/02/18 21:21 03:28 05:25 WBC RBC Hgb Hct MCV MCH MCHC RDW Lymph % (Auto) [place] % (Auto) Eos % (Auto) Lymph # [place] # Eos # Seg Neutrophils % Seg Neuts % (Manual) Lymphocytes % (Manual) Seg Neutrophils # Seg Neutrophils # Man Lymphocytes # (Manual) Eosinophils # (Manual) PT INR APTT D-Dimer Heparin Anti-Xa Level POC ABG pH POC ABG pCO2 POC ABG pO2 Sodium Potassium Chloride Carbon Dioxide BUN Creatinine Glucose POC Glucose 236 H 194 H 183 H Lactic Acid Calcium Magnesium AST Alkaline Phosphatase Total Creatine Kinase CK-MB (CK-2) Troponin T C-Reactive Protein Total Protein Albumin Cholesterol LDL Cholesterol Direct HDL Cholesterol Free T4 Urine WBC (Auto) Urine Creatinine Urine Total Protein Crossmatch 09/02/18 09/02/18 09/02/18 09:16 15:30 17:20 WBC RBC Hgb Hct MCV MCH MCHC RDW Lymph % (Auto) [place] % (Auto) Eos % (Auto) Lymph # [place] # Eos # Seg Neutrophils % Seg Neuts % (Manual) Lymphocytes % (Manual) Seg Neutrophils # Seg Neutrophils # Man Lymphocytes # (Manual) Eosinophils # (Manual) PT INR APTT D-Dimer Heparin Anti-Xa Level POC ABG pH POC ABG pCO2 POC ABG pO2 Sodium Potassium Chloride Carbon Dioxide BUN Creatinine Glucose POC Glucose 251 H 303 H 316 H Lactic Acid Calcium Magnesium AST Alkaline Phosphatase Total Creatine Kinase CK-MB (CK-2) Troponin T C-Reactive Protein Total Protein Albumin Cholesterol LDL Cholesterol Direct HDL Cholesterol Free T4 Urine WBC (Auto) Urine Creatinine Urine Total Protein Crossmatch 09/02/18 09/03/18 09/03/18 21:25 03:32 05:20 WBC RBC Hgb Hct MCV MCH MCHC RDW Lymph % (Auto) [place] % (Auto) Eos % (Auto) Lymph # [place] # Eos # Seg Neutrophils % Seg Neuts % (Manual) Lymphocytes % (Manual) Seg Neutrophils # Seg Neutrophils # Man Lymphocytes # (Manual) Eosinophils # (Manual) PT INR APTT D-Dimer Heparin Anti-Xa Level POC ABG pH POC ABG pCO2 POC ABG pO2 Sodium Potassium Chloride Carbon Dioxide BUN Creatinine Glucose POC Glucose 242 H 305 H 225 H Lactic Acid Calcium Magnesium AST Alkaline Phosphatase Total Creatine Kinase CK-MB (CK-2) Troponin T C-Reactive Protein Total Protein Albumin Cholesterol LDL Cholesterol Direct HDL Cholesterol Free T4 Urine WBC (Auto) Urine Creatinine Urine Total Protein Crossmatch 09/03/18 09/03/18 09/03/18 07:52 07:52 10:19 WBC RBC 3.29 L Hgb 9.0 L Hct 27.3 L MCV 83 L MCH 27 L MCHC RDW 18.4 H Lymph % (Auto) [place] % (Auto) Eos % (Auto) Lymph # [place] # Eos # Seg Neutrophils % Seg Neuts % (Manual) Lymphocytes % (Manual) Seg Neutrophils # Seg Neutrophils # Man Lymphocytes # (Manual) Eosinophils # (Manual) PT INR APTT D-Dimer Heparin Anti-Xa Level POC ABG pH POC ABG pCO2 POC ABG pO2 Sodium Potassium Chloride Carbon Dioxide BUN 23 H Creatinine Glucose 205 H POC Glucose 228 H Lactic Acid Calcium 7.9 L Magnesium AST Alkaline Phosphatase Total Creatine Kinase CK-MB (CK-2) Troponin T C-Reactive Protein Total Protein Albumin Cholesterol LDL Cholesterol Direct HDL Cholesterol Free T4 Urine WBC (Auto) Urine Creatinine Urine Total Protein Crossmatch 09/03/18 09/03/18 09/03/18 13:42 17:22 21:33 WBC RBC Hgb Hct MCV MCH MCHC RDW Lymph % (Auto) [place] % (Auto) Eos % (Auto) Lymph # [place] # Eos # Seg Neutrophils % Seg Neuts % (Manual) Lymphocytes % (Manual) Seg Neutrophils # Seg Neutrophils # Man Lymphocytes # (Manual) Eosinophils # (Manual) PT INR APTT D-Dimer Heparin Anti-Xa Level POC ABG pH POC ABG pCO2 POC ABG pO2 Sodium Potassium Chloride Carbon Dioxide BUN Creatinine Glucose POC Glucose 221 H 186 H 179 H Lactic Acid Calcium Magnesium AST Alkaline Phosphatase Total Creatine Kinase CK-MB (CK-2) Troponin T C-Reactive Protein Total Protein Albumin Cholesterol LDL Cholesterol Direct HDL Cholesterol Free T4 Urine WBC (Auto) Urine Creatinine Urine Total Protein Crossmatch 09/04/18 09/04/18 09/04/18 02:07 05:54 11:03 WBC RBC Hgb Hct MCV MCH MCHC RDW Lymph % (Auto) [place] % (Auto) Eos % (Auto) Lymph # [place] # Eos # Seg Neutrophils % Seg Neuts % (Manual) Lymphocytes % (Manual) Seg Neutrophils # Seg Neutrophils # Man Lymphocytes # (Manual) Eosinophils # (Manual) PT INR APTT D-Dimer Heparin Anti-Xa Level POC ABG pH POC ABG pCO2 POC ABG pO2 Sodium Potassium Chloride Carbon Dioxide BUN Creatinine Glucose POC Glucose 174 H 171 H 181 H Lactic Acid Calcium Magnesium AST Alkaline Phosphatase Total Creatine Kinase CK-MB (CK-2) Troponin T C-Reactive Protein Total Protein Albumin Cholesterol LDL Cholesterol Direct HDL Cholesterol Free T4 Urine WBC (Auto) Urine Creatinine Urine Total Protein Crossmatch 09/04/18 09/04/18 09/04/18 14:59 18:24 21:50 WBC RBC Hgb Hct MCV MCH MCHC RDW Lymph % (Auto) [place] % (Auto) Eos % (Auto) Lymph # [place] # Eos # Seg Neutrophils % Seg Neuts % (Manual) Lymphocytes % (Manual) Seg Neutrophils # Seg Neutrophils # Man Lymphocytes # (Manual) Eosinophils # (Manual) PT INR APTT D-Dimer Heparin Anti-Xa Level POC ABG pH POC ABG pCO2 POC ABG pO2 Sodium Potassium Chloride Carbon Dioxide BUN Creatinine Glucose POC Glucose 204 H 236 H 197 H Lactic Acid Calcium Magnesium AST Alkaline Phosphatase Total Creatine Kinase CK-MB (CK-2) Troponin T C-Reactive Protein Total Protein Albumin Cholesterol LDL Cholesterol Direct HDL Cholesterol Free T4 Urine WBC (Auto) Urine Creatinine Urine Total Protein Crossmatch 09/05/18 09/05/18 09/05/18 01:32 04:52 04:52 WBC RBC 3.16 L Hgb 8.7 L Hct 26.0 L MCV 82 L MCH MCHC RDW 18.9 H Lymph % (Auto) [place] % (Auto) Eos % (Auto) Lymph # [place] # Eos # Seg Neutrophils % Seg Neuts % (Manual) Lymphocytes % (Manual) Seg Neutrophils # Seg Neutrophils # Man Lymphocytes # (Manual) Eosinophils # (Manual) PT INR APTT D-Dimer Heparin Anti-Xa Level POC ABG pH POC ABG pCO2 POC ABG pO2 Sodium Potassium Chloride 107.2 H Carbon Dioxide BUN 23 H Creatinine 0.7 L Glucose 215 H POC Glucose 210 H Lactic Acid Calcium 8.3 L Magnesium AST Alkaline Phosphatase Total Creatine Kinase CK-MB (CK-2) Troponin T C-Reactive Protein Total Protein Albumin Cholesterol LDL Cholesterol Direct HDL Cholesterol Free T4 Urine WBC (Auto) Urine Creatinine Urine Total Protein Crossmatch 09/05/18 09/05/18 09/05/18 05:36 10:26 13:11 WBC RBC Hgb Hct MCV MCH MCHC RDW Lymph % (Auto) [place] % (Auto) Eos % (Auto) Lymph # [place] # Eos # Seg Neutrophils % Seg Neuts % (Manual) Lymphocytes % (Manual) Seg Neutrophils # Seg Neutrophils # Man Lymphocytes # (Manual) Eosinophils # (Manual) PT INR APTT D-Dimer Heparin Anti-Xa Level POC ABG pH POC ABG pCO2 POC ABG pO2 Sodium Potassium Chloride Carbon Dioxide BUN Creatinine Glucose POC Glucose 216 H 206 H 161 H Lactic Acid Calcium Magnesium AST Alkaline Phosphatase Total Creatine Kinase CK-MB (CK-2) Troponin T C-Reactive Protein Total Protein Albumin Cholesterol LDL Cholesterol Direct HDL Cholesterol Free T4 Urine WBC (Auto) Urine Creatinine Urine Total Protein Crossmatch 09/05/18 09/05/18 09/05/18 18:27 18:32 22:05 WBC RBC Hgb Hct MCV MCH MCHC RDW Lymph % (Auto) [place] % (Auto) Eos % (Auto) Lymph # [place] # Eos # Seg Neutrophils % Seg Neuts % (Manual) Lymphocytes % (Manual) Seg Neutrophils # Seg Neutrophils # Man Lymphocytes # (Manual) Eosinophils # (Manual) PT INR APTT D-Dimer Heparin Anti-Xa Level POC ABG pH 7.478 H POC ABG pCO2 POC ABG pO2 138 H Sodium Potassium Chloride Carbon Dioxide BUN Creatinine Glucose POC Glucose 154 H 149 H Lactic Acid Calcium Magnesium AST Alkaline Phosphatase Total Creatine Kinase CK-MB (CK-2) Troponin T C-Reactive Protein Total Protein Albumin Cholesterol LDL Cholesterol Direct HDL Cholesterol Free T4 Urine WBC (Auto) Urine Creatinine Urine Total Protein Crossmatch 09/06/18 09/06/18 09/06/18 04:40 08:30 10:06 WBC RBC Hgb Hct MCV MCH MCHC RDW Lymph % (Auto) [place] % (Auto) Eos % (Auto) Lymph # [place] # Eos # Seg Neutrophils % Seg Neuts % (Manual) Lymphocytes % (Manual) Seg Neutrophils # Seg Neutrophils # Man Lymphocytes # (Manual) Eosinophils # (Manual) PT INR APTT D-Dimer Heparin Anti-Xa Level POC ABG pH POC ABG pCO2 POC ABG pO2 Sodium Potassium Chloride Carbon Dioxide BUN Creatinine Glucose POC Glucose 140 H 188 H 199 H Lactic Acid Calcium Magnesium AST Alkaline Phosphatase Total Creatine Kinase CK-MB (CK-2) Troponin T C-Reactive Protein Total Protein Albumin Cholesterol LDL Cholesterol Direct HDL Cholesterol Free T4 Urine WBC (Auto) Urine Creatinine Urine Total Protein Crossmatch 09/06/18 09/06/18 09/06/18 12:13 14:23 17:11 WBC RBC Hgb Hct MCV MCH MCHC RDW Lymph % (Auto) [place] % (Auto) Eos % (Auto) Lymph # [place] # Eos # Seg Neutrophils % Seg Neuts % (Manual) Lymphocytes % (Manual) Seg Neutrophils # Seg Neutrophils # Man Lymphocytes # (Manual) Eosinophils # (Manual) PT INR APTT D-Dimer Heparin Anti-Xa Level POC ABG pH POC ABG pCO2 POC ABG pO2 Sodium Potassium Chloride Carbon Dioxide BUN Creatinine Glucose POC Glucose 177 H 180 H 216 H Lactic Acid Calcium Magnesium AST Alkaline Phosphatase Total Creatine Kinase CK-MB (CK-2) Troponin T C-Reactive Protein Total Protein Albumin Cholesterol LDL Cholesterol Direct HDL Cholesterol Free T4 Urine WBC (Auto) Urine Creatinine Urine Total Protein Crossmatch 09/06/18 09/07/18 09/07/18 21:47 02:02 04:55 WBC RBC 3.08 L Hgb 8.5 L Hct 25.2 L MCV 82 L MCH MCHC RDW 18.8 H Lymph % (Auto) [place] % (Auto) Eos % (Auto) Lymph # 0.8 L [place] # Eos # Seg Neutrophils % 84.8 H Seg Neuts % (Manual) Lymphocytes % (Manual) Seg Neutrophils # Seg Neutrophils # Man Lymphocytes # (Manual) Eosinophils # (Manual) PT INR APTT D-Dimer Heparin Anti-Xa Level POC ABG pH POC ABG pCO2 POC ABG pO2 Sodium Potassium Chloride Carbon Dioxide BUN Creatinine Glucose POC Glucose 275 H 291 H Lactic Acid Calcium Magnesium AST Alkaline Phosphatase Total Creatine Kinase CK-MB (CK-2) Troponin T C-Reactive Protein Total Protein Albumin Cholesterol LDL Cholesterol Direct HDL Cholesterol Free T4 Urine WBC (Auto) Urine Creatinine Urine Total Protein Crossmatch 09/07/18 09/07/18 09/07/18 04:55 06:02 10:27 WBC RBC Hgb Hct MCV MCH MCHC RDW Lymph % (Auto) [place] % (Auto) Eos % (Auto) Lymph # [place] # Eos # Seg Neutrophils % Seg Neuts % (Manual) Lymphocytes % (Manual) Seg Neutrophils # Seg Neutrophils # Man Lymphocytes # (Manual) Eosinophils # (Manual) PT INR APTT D-Dimer Heparin Anti-Xa Level POC ABG pH POC ABG pCO2 POC ABG pO2 Sodium Potassium Chloride Carbon Dioxide BUN 30 H Creatinine 0.7 L Glucose 291 H POC Glucose 320 H 365 H Lactic Acid Calcium Magnesium AST Alkaline Phosphatase Total Creatine Kinase CK-MB (CK-2) Troponin T C-Reactive Protein Total Protein Albumin Cholesterol LDL Cholesterol Direct HDL Cholesterol Free T4 Urine WBC (Auto) Urine Creatinine Urine Total Protein Crossmatch 09/07/18 09/07/18 09/07/18 13:52 17:12 21:29 WBC RBC Hgb Hct MCV MCH MCHC RDW Lymph % (Auto) [place] % (Auto) Eos % (Auto) Lymph # [place] # Eos # Seg Neutrophils % Seg Neuts % (Manual) Lymphocytes % (Manual) Seg Neutrophils # Seg Neutrophils # Man Lymphocytes # (Manual) Eosinophils # (Manual) PT INR APTT D-Dimer Heparin Anti-Xa Level POC ABG pH POC ABG pCO2 POC ABG pO2 Sodium Potassium Chloride Carbon Dioxide BUN Creatinine Glucose POC Glucose 364 H 338 H 242 H Lactic Acid Calcium Magnesium AST Alkaline Phosphatase Total Creatine Kinase CK-MB (CK-2) Troponin T C-Reactive Protein Total Protein Albumin Cholesterol LDL Cholesterol Direct HDL Cholesterol Free T4 Urine WBC (Auto) Urine Creatinine Urine Total Protein Crossmatch 09/07/18 09/08/18 09/08/18 22:24 02:02 04:22 WBC 14.8 H RBC 3.15 L Hgb 8.5 L Hct 26.3 L MCV 83 L MCH 27 L MCHC RDW 19.6 H Lymph % (Auto) [place] % (Auto) Eos % (Auto) Lymph # [place] # Eos # Seg Neutrophils % Seg Neuts % (Manual) Lymphocytes % (Manual) Seg Neutrophils # Seg Neutrophils # Man Lymphocytes # (Manual) Eosinophils # (Manual) PT INR APTT D-Dimer Heparin Anti-Xa Level POC ABG pH 7.484 H POC ABG pCO2 POC ABG pO2 61 L Sodium Potassium Chloride Carbon Dioxide BUN Creatinine Glucose POC Glucose 324 H Lactic Acid Calcium Magnesium AST Alkaline Phosphatase Total Creatine Kinase CK-MB (CK-2) Troponin T C-Reactive Protein Total Protein Albumin Cholesterol LDL Cholesterol Direct HDL Cholesterol Free T4 Urine WBC (Auto) Urine Creatinine Urine Total Protein Crossmatch 09/08/18 09/08/18 09/08/18 04:22 05:33 09:40 WBC RBC Hgb Hct MCV MCH MCHC RDW Lymph % (Auto) [place] % (Auto) Eos % (Auto) Lymph # [place] # Eos # Seg Neutrophils % Seg Neuts % (Manual) Lymphocytes % (Manual) Seg Neutrophils # Seg Neutrophils # Man Lymphocytes # (Manual) Eosinophils # (Manual) PT INR APTT D-Dimer Heparin Anti-Xa Level POC ABG pH POC ABG pCO2 POC ABG pO2 Sodium Potassium Chloride Carbon Dioxide BUN 39 H Creatinine Glucose 320 H POC Glucose 324 H 329 H Lactic Acid Calcium 8.3 L Magnesium AST Alkaline Phosphatase Total Creatine Kinase CK-MB (CK-2) Troponin T C-Reactive Protein Total Protein Albumin Cholesterol LDL Cholesterol Direct HDL Cholesterol Free T4 Urine WBC (Auto) Urine Creatinine Urine Total Protein Crossmatch 09/08/18 09/08/18 09/08/18 13:11 18:02 21:27 WBC RBC Hgb Hct MCV MCH MCHC RDW Lymph % (Auto) [place] % (Auto) Eos % (Auto) Lymph # [place] # Eos # Seg Neutrophils % Seg Neuts % (Manual) Lymphocytes % (Manual) Seg Neutrophils # Seg Neutrophils # Man Lymphocytes # (Manual) Eosinophils # (Manual) PT INR APTT D-Dimer Heparin Anti-Xa Level POC ABG pH POC ABG pCO2 POC ABG pO2 Sodium Potassium Chloride Carbon Dioxide BUN Creatinine Glucose POC Glucose 369 H 331 H 304 H Lactic Acid Calcium Magnesium AST Alkaline Phosphatase Total Creatine Kinase CK-MB (CK-2) Troponin T C-Reactive Protein Total Protein Albumin Cholesterol LDL Cholesterol Direct HDL Cholesterol Free T4 Urine WBC (Auto) Urine Creatinine Urine Total Protein Crossmatch 09/09/18 09/09/18 09/09/18 02:03 05:29 09:20 WBC RBC Hgb Hct MCV MCH MCHC RDW Lymph % (Auto) [place] % (Auto) Eos % (Auto) Lymph # [place] # Eos # Seg Neutrophils % Seg Neuts % (Manual) Lymphocytes % (Manual) Seg Neutrophils # Seg Neutrophils # Man Lymphocytes # (Manual) Eosinophils # (Manual) PT INR APTT D-Dimer Heparin Anti-Xa Level POC ABG pH POC ABG pCO2 POC ABG pO2 Sodium Potassium Chloride Carbon Dioxide BUN Creatinine Glucose POC Glucose 361 H 204 H 292 H Lactic Acid Calcium Magnesium AST Alkaline Phosphatase Total Creatine Kinase CK-MB (CK-2) Troponin T C-Reactive Protein Total Protein Albumin Cholesterol LDL Cholesterol Direct HDL Cholesterol Free T4 Urine WBC (Auto) Urine Creatinine Urine Total Protein Crossmatch 06/12/19 06/12/19 06/12/19 14:20 15:04 18:08 WBC RBC Hgb Hct MCV MCH MCHC RDW Lymph % (Auto) [place] % (Auto) Eos % (Auto) Lymph # [place] # Eos # Seg Neutrophils % Seg Neuts % (Manual) Lymphocytes % (Manual) Seg Neutrophils # Seg Neutrophils # Man Lymphocytes # (Manual) Eosinophils # (Manual) PT INR APTT D-Dimer Heparin Anti-Xa Level POC ABG pH 7.464 H POC ABG pCO2 POC ABG pO2 109 H Sodium Potassium Chloride Carbon Dioxide BUN Creatinine Glucose POC Glucose 253 H 196 H Lactic Acid Calcium Magnesium AST Alkaline Phosphatase Total Creatine Kinase CK-MB (CK-2) Troponin T C-Reactive Protein Total Protein Albumin Cholesterol LDL Cholesterol Direct HDL Cholesterol Free T4 Urine WBC (Auto) Urine Creatinine Urine Total Protein Crossmatch 09/09/18 09/10/18 09/10/18 22:23 02:32 06:10 WBC RBC Hgb Hct MCV MCH MCHC RDW Lymph % (Auto) [place] % (Auto) Eos % (Auto) Lymph # [place] # Eos # Seg Neutrophils % Seg Neuts % (Manual) Lymphocytes % (Manual) Seg Neutrophils # Seg Neutrophils # Man Lymphocytes # (Manual) Eosinophils # (Manual) PT INR APTT D-Dimer Heparin Anti-Xa Level POC ABG pH POC ABG pCO2 POC ABG pO2 Sodium Potassium Chloride Carbon Dioxide BUN Creatinine Glucose POC Glucose 245 H 238 H 250 H Lactic Acid Calcium Magnesium AST Alkaline Phosphatase Total Creatine Kinase CK-MB (CK-2) Troponin T C-Reactive Protein Total Protein Albumin Cholesterol LDL Cholesterol Direct HDL Cholesterol Free T4 Urine WBC (Auto) Urine Creatinine Urine Total Protein Crossmatch 09/10/18 09/10/18 09/10/18 08:16 11:35 21:18 WBC RBC Hgb Hct MCV MCH MCHC RDW Lymph % (Auto) [place] % (Auto) Eos % (Auto) Lymph # [place] # Eos # Seg Neutrophils % Seg Neuts % (Manual) Lymphocytes % (Manual) Seg Neutrophils # Seg Neutrophils # Man Lymphocytes # (Manual) Eosinophils # (Manual) PT INR APTT D-Dimer Heparin Anti-Xa Level POC ABG pH POC ABG pCO2 POC ABG pO2 Sodium Potassium Chloride Carbon Dioxide BUN Creatinine Glucose POC Glucose 232 H 267 H 270 H Lactic Acid Calcium Magnesium AST Alkaline Phosphatase Total Creatine Kinase CK-MB (CK-2) Troponin T C-Reactive Protein Total Protein Albumin Cholesterol LDL Cholesterol Direct HDL Cholesterol Free T4 Urine WBC (Auto) Urine Creatinine Urine Total Protein Crossmatch 09/11/18 09/11/18 09/11/18 06:21 07:49 12:02 WBC RBC Hgb Hct MCV MCH MCHC RDW Lymph % (Auto) [place] % (Auto) Eos % (Auto) Lymph # [place] # Eos # Seg Neutrophils % Seg Neuts % (Manual) Lymphocytes % (Manual) Seg Neutrophils # Seg Neutrophils # Man Lymphocytes # (Manual) Eosinophils # (Manual) PT INR APTT D-Dimer Heparin Anti-Xa Level POC ABG pH POC ABG pCO2 POC ABG pO2 Sodium Potassium Chloride Carbon Dioxide BUN Creatinine Glucose POC Glucose 255 H 233 H 200 H Lactic Acid Calcium Magnesium AST Alkaline Phosphatase Total Creatine Kinase CK-MB (CK-2) Troponin T C-Reactive Protein Total Protein Albumin Cholesterol LDL Cholesterol Direct HDL Cholesterol Free T4 Urine WBC (Auto) Urine Creatinine Urine Total Protein Crossmatch 09/11/18 09/11/18 09/11/18 16:35 21:09 22:33 WBC 12.1 H RBC 3.16 L Hgb 8.5 L Hct 26.2 L MCV 83 L MCH 27 L MCHC RDW 20.7 H Lymph % (Auto) [place] % (Auto) Eos % (Auto) Lymph # [place] # Eos # Seg Neutrophils % Seg Neuts % (Manual) 77.0 H Lymphocytes % (Manual) 13.0 L Seg Neutrophils # Seg Neutrophils # Man 9.3 H Lymphocytes # (Manual) Eosinophils # (Manual) 0.5 H PT INR APTT D-Dimer Heparin Anti-Xa Level POC ABG pH POC ABG pCO2 POC ABG pO2 Sodium Potassium Chloride Carbon Dioxide BUN Creatinine Glucose POC Glucose 210 H 256 H Lactic Acid Calcium Magnesium AST Alkaline Phosphatase Total Creatine Kinase CK-MB (CK-2) Troponin T C-Reactive Protein Total Protein Albumin Cholesterol LDL Cholesterol Direct HDL Cholesterol Free T4 Urine WBC (Auto) Urine Creatinine Urine Total Protein Crossmatch 09/11/18 09/12/18 09/12/18 23:59 05:07 05:07 WBC RBC 2.89 L Hgb 7.9 L Hct 23.9 L MCV 83 L MCH 27 L MCHC RDW 20.1 H Lymph % (Auto) [place] % (Auto) 7.8 H Eos % (Auto) Lymph # [place] # 0.9 H Eos # Seg Neutrophils % 70.2 H Seg Neuts % (Manual) Lymphocytes % (Manual) Seg Neutrophils # Seg Neutrophils # Man Lymphocytes # (Manual) Eosinophils # (Manual) PT INR APTT D-Dimer Heparin Anti-Xa Level POC ABG pH POC ABG pCO2 POC ABG pO2 Sodium 149 H D Potassium 3.5 L Chloride 110.6 H Carbon Dioxide BUN 32 H Creatinine Glucose 222 H POC Glucose 267 H Lactic Acid Calcium 8.2 L Magnesium AST Alkaline Phosphatase Total Creatine Kinase CK-MB (CK-2) Troponin T C-Reactive Protein Total Protein Albumin Cholesterol LDL Cholesterol Direct HDL Cholesterol Free T4 Urine WBC (Auto) Urine Creatinine Urine Total Protein Crossmatch 09/12/18 05:36 WBC RBC Hgb Hct MCV MCH MCHC RDW Lymph % (Auto) [place] % (Auto) Eos % (Auto) Lymph # [place] # Eos # Seg Neutrophils % Seg Neuts % (Manual) Lymphocytes % (Manual) Seg Neutrophils # Seg Neutrophils # Man Lymphocytes # (Manual) Eosinophils # (Manual) PT INR APTT D-Dimer Heparin Anti-Xa Level POC ABG pH POC ABG pCO2 POC ABG pO2 Sodium Potassium Chloride Carbon Dioxide BUN Creatinine Glucose POC Glucose 251 H Lactic Acid Calcium Magnesium AST Alkaline Phosphatase Total Creatine Kinase CK-MB (CK-2) Troponin T C-Reactive Protein Total Protein Albumin Cholesterol LDL Cholesterol Direct HDL Cholesterol Free T4 Urine WBC (Auto) Urine Creatinine Urine Total Protein Crossmatch Allied health notes reviewed: nursing
[2018-09-12] MEDS: SENOKOT S PO SCH (10:35)
--- NOTE | 2018-09-12 10:40 | Progress Note ---
Assessment and Plan Assessment and plan: Sepsis: Previously Resolved with treating UTI. Patient had been off antibiotic s. However with new temperature spike 09/10/18. Recheck blood cultures. 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 Acute on chronic respiratory failure Trach has been removed when patient was orally intubated, continue ventilator management per pulmonology. Tracheostomy was replaced by surgery on 08/25/18. Tracheostomy care, airway clearance, secretion management Right pneumothorax, resolved. Status post chest tube, mgt per pulmonology Hypoxic encephalopathy: neurology consult appreciated, poor prognosis, poor likelihood of recovery, preserved brain stem function otherwise unresponsive. EEG is suggestive hypoxic encephalopathy. Seizure disorder with breakthrough seizures. Continue Keppra twice a day. S eizure precautions. Hypertension. Hydralazine 100 mg 3 times a day, cont norvasc Hypernatremia, Continue free water via G-tube, sp hypotonic IV solution, monitor bmp closely Acute kidney injury likely due to ATN Nephrology following, continue IV fluid, avoid renal toxic agents NSTEMI: treated with IV heparin, asa, statin, no bblocker due to bradycardia, hypotension, Cardiology is following Severe protein calorie malnutrition: Dietitian consulted, continue tube feedings Type 2 dm with persistent hyperglycemia: cont insulins and adjust according, on tube feedings Anemia: s/p transfusion Urinary retention: continue douglass, condom cath DVT prophylaxis; patient is fully anticoagulated on heparin drip Disposition. Await another follow-up with LTAC placement. I discussed with case management. History Interval history: Patient is a 77 yo man from [facility] with a history of respiratory failure, CVA with tracheostomy and Gtube who presented to [facility] ED following cardiac arrest after being found unresponsive at the group home. Time down is unknown per records. The patient is on the vent and unresponsive, all history is obtained from the chart. Patient had multiple episodes of arrest/pulselessness. He has been on the vent since then without any improvement. Per ER notes the patient was bagged via tracheostomy which continued to have low tidal volumes and so the patient with orally intubated after which tidal volumes improved. I spoke with and daughter, Felicita and they believe that he aspirated with a mucus plug that caused the cardiopulmonary arrest not NSTEMI.. Initially, he went to [facility] [place] may 05 to june 05, he had fluid on brain and multiple strokes per family and they drained the fluid off the brain. The trach was placed at [facility] [place] and patient went to [facility], x 7 weeks (trach was changed where capped was placed), he was doing well, talking and sitting up. Then he went to [facility], August 03 and his oral care was horrible. The trach care was horrible and not enough suctioning done. Mouth with copious amount of crud. Then on August 12, Friday, he had voice changing and mucus plugging. Followed by respiratory arrest. The NM brain flow scan showed reduced blood flow. Patient had evaluation by neurology who reports patient with intact brainstem function. Patient still comatose, no improvement. LTAC was recommended but denied. case management discussing options with family. Hospitalist Physical - Constitutional Vitals: Temp Pulse Resp BP Pulse Ox 99.9 F H 95 H 16 149/65 100 09/12/18 07:18 09/12/18 04:29 09/12/18 07:18 09/12/18 07:18 09/12/18 04:29 General appearance: Present: other (twitching, nonresponsive, intubated) - EENT Eyes: Present: PERRL, EOM intact ENT: hearing intact, clear oral mucosa, dentition normal - Neck Neck: Present: supple, normal ROM - Respiratory Respiratory effort: normal Respiratory: bilateral: CTA - Cardiovascular Rhythm: regular Heart Sounds: Present: S1 & S2. Absent: gallop, rub - Extremities Extremities: no ischemia, No edema, Full ROM - Abdominal General gastrointestinal: soft, non-tender, non-distended, normal bowel sounds - Integumentary Integumentary: Present: clear, warm, dry - Neurologic Neurologic: CNII-XII intact, moves all extremities Results - Labs CBC & Chem 7: 09/12/18 05:07 09/12/18 05:07 Labs: Laboratory Last Values WBC 11.0 K/mm3 (4.5-11.0) 09/12/18 05:07 RBC 2.89 M/mm3 (3.65-5.03) L 09/12/18 05:07 Hgb 7.9 gm/dl (11.8-15.2) L 09/12/18 05:07 Hct 23.9 % (35.5-45.6) L 09/12/18 05:07 MCV 83 fl (84-94) L 09/12/18 05:07 MCH 27 pg (28-32) L 09/12/18 05:07 MCHC 33 % (32-34) 09/12/18 05:07 RDW 20.1 % (13.2-15.2) H 09/12/18 05:07 Plt Count 293 K/mm3 (140-440) 09/12/18 05:07 Lymph % (Auto) 17.6 % (13.4-35.0) 09/12/18 05:07 Jack % (Auto) 7.8 % (0.0-7.3) H 09/12/18 05:07 Eos % (Auto) 4.1 % (0.0-4.3) 09/12/18 05:07 Baso % (Auto) 0.3 % (0.0-1.8) 09/12/18 05:07 Lymph # 1.9 K/mm3 (1.2-5.4) 09/12/18 05:07 Jack # 0.9 K/mm3 (0.0-0.8) H 09/12/18 05:07 Eos # 0.4 K/mm3 (0.0-0.4) 09/12/18 05:07 Baso # 0.0 K/mm3 (0.0-0.1) 09/12/18 05:07 Add Manual Diff Complete 09/11/18 22:33 Total Counted 100 09/11/18 22:33 Seg Neutrophils % 70.2 % (40.0-70.0) H 09/12/18 05:07 Seg Neuts % (Manual) 77.0 % (40.0-70.0) H 09/11/18 22:33 0 % 09/11/18 22:33 13.0 % (13.4-35.0) L 09/11/18 22:33 Reactive Lymphs % (Man) 0 % 09/11/18 22:33 6.0 % (0.0-7.3) 09/11/18 22:33 4.0 % (0.0-4.3) 09/11/18 22:33 0 % (0.0-1.8) 09/11/18 22:33 0 % 09/11/18 22:33 0 % 09/11/18 22:33 0 % 09/11/18 22:33 0 % 09/11/18 22:33 Nucleated RBC % Not Reportable 09/11/18 22:33 Seg Neutrophils # 7.7 K/mm3 (1.8-7.7) 09/12/18 05:07 Seg Neutrophils # Man 9.3 K/mm3 (1.8-7.7) H 09/11/18 22:33 Band Neutrophils # 0.0 K/mm3 09/11/18 22:33 1.6 K/mm3 (1.2-5.4) 09/11/18 22:33 Abs React Lymphs (Man) 0.0 K/mm3 09/11/18 22:33 0.7 K/mm3 (0.0-0.8) 09/11/18 22:33 0.5 K/mm3 (0.0-0.4) H 09/11/18 22:33 0.0 K/mm3 (0.0-0.1) 09/11/18 22:33 0.0 K/mm3 09/11/18 22:33 0.0 K/mm3 09/11/18 22:33 0.0 K/mm3 09/11/18 22:33 Blast Cells # 0.0 K/mm3 09/11/18 22:33 WBC Morphology Not Reportable 09/11/18 22:33 Hypersegmented Neuts Not Reportable 09/11/18 22:33 Hyposegmented Neuts Not Reportable 09/11/18 22:33 Hypogranular Neuts Not Reportable 09/11/18 22:33 Not Reportable 09/11/18 22:33 Not Reportable 09/11/18 22:33 Not Reportable 09/11/18 22:33 Not Reportable 09/11/18 22:33 Not Reportable 09/11/18 22:33 Not Reportable 09/11/18 22:33 Appears normal 09/11/18 22:33 Not Reportable 09/11/18 22:33 Plt Clumps, EDTA Not Reportable 09/11/18 22:33 Not Reportable 09/11/18 22:33 Not Reportable 09/11/18 22:33 Not Reportable 09/11/18 22:33 Plt Morphology Comment Not Reportable 09/11/18 22:33 RBC Morphology Not Reportable 09/11/18 22:33 Dimorphic RBCs Not Reportable 09/11/18 22:33 Not Reportable 09/11/18 22:33 Not Reportable 09/11/18 22:33 Few 09/11/18 22:33 1+ 09/11/18 22:33 Not Reportable 09/11/18 22:33 Not Reportable 09/11/18 22:33 Not Reportable 09/11/18 22:33 Not Reportable 09/11/18 22:33 Not Reportable 09/11/18 22:33 Not Reportable 09/11/18 22:33 Not Reportable 09/11/18 22:33 Not Reportable 09/11/18 22:33 Not Reportable 09/11/18 22:33 Not Reportable 09/11/18 22:33 Not Reportable 09/11/18 22:33 Not Reportable 09/11/18 22:33 Not Reportable 09/11/18 22:33 Not Reportable 09/11/18 22:33 Not Reportable 09/11/18 22:33 Acanthocytes (Spur) Not Reportable 09/11/18 22:33 Rouleaux Not Reportable 09/11/18 22:33 Not Reportable 09/11/18 22:33 Not Reportable 09/11/18 22:33 Not Reportable 09/11/18 22:33 Not Reportable 09/11/18 22:33 Hem Pathologist Commnt No 09/11/18 22:33 PT 16.5 Sec. (12.2-14.9) H 08/13/18 00:47 INR 1.25 (0.87-1.13) H 08/13/18 00:47 APTT 79.0 Sec. (24.2-36.6) H* 08/15/18 06:35 2742.50 ng/mlDDU (0-234) H 08/13/18 20:07 Heparin Anti-Xa Level 0.26 U.I./ml (0.3-0.7) L 08/16/18 20:01 POC ABG pH 7.464 (7.35-7.45) H 09/09/18 15:04 POC ABG pCO2 43.7 (35-45) 09/09/18 15:04 POC ABG pO2 109 (80-105) H 09/09/18 15:04 POC ABG HCO3 31.4 (22-26 mml/L) 09/09/18 15:04 POC ABG Total CO2 33 (23-27mmol/L) 09/09/18 15:04 POC ABG O2 Sat 98 09/09/18 15:04 POC ABG Base Excess 8 ((-2) - (+3)mmol/L) 09/09/18 15:04 35 % 09/09/18 15:04 Sodium 149 mmol/L (137-145) H D 09/12/18 05:07 Potassium 3.5 mmol/L (3.6-5.0) L 09/12/18 05:07 Chloride 110.6 mmol/L (98-107) H 09/12/18 05:07 Carbon Dioxide 28 mmol/L (22-30) 09/12/18 05:07 14 mmol/L 09/12/18 05:07 BUN 32 mg/dL (9-20) H 09/12/18 05:07 0.8 mg/dL (0.8-1.5) 09/12/18 05:07 Estimated GFR > 60 ml/min 09/12/18 05:07 40 % 09/12/18 05:07 Glucose 222 mg/dL (75-100) H 09/12/18 05:07 POC Glucose 210 (70-105) H 09/12/18 07:22 Lactic Acid 2.80 mmol/L (0.7-2.0) H* 08/13/18 12:53 Calcium 8.2 mg/dL (8.4-10.2) L 09/12/18 05:07 Phosphorus 3.90 mg/dL (2.5-4.5) 08/15/18 04:05 Magnesium 1.70 mg/dL (1.7-2.3) 09/06/18 14:35 < 0.20 mg/dL (0.1-1.2) 08/30/18 05:40 AST 50 units/L (5-40) H 08/30/18 05:40 ALT 31 units/L (7-56) 08/30/18 05:40 158 units/L (35-129) H 08/30/18 05:40 309 units/L (55-170) H 08/13/18 10:10 CK-MB (CK-2) 4.1 ng/mL (0.0-4.0) H 08/13/18 10:10 CK-MB (CK-2) Rel Index 1.3 (0-4) 08/13/18 10:10 0.409 ng/mL (0.00-0.029) H* 08/14/18 04:03 16.90 mg/dL (0.00-1.30) H 08/13/18 12:53 6.4 g/dL (6.3-8.2) 08/30/18 05:40 1.6 g/dL (3.9-5) L 08/30/18 05:40 0.3 % 08/30/18 05:40 Triglycerides 62 mg/dL (2-149) 08/13/18 00:32 Cholesterol 46 mg/dL (50-199) L 08/13/18 00:32 17 mg/dL (50-130) L 08/13/18 00:32 6 mg/dL (40-59) L 08/13/18 00:32 7.66 % 08/13/18 00:32 TSH 0.973 mlU/mL (0.270-4.200) 08/26/18 09:00 Free T4 0.51 ng/dL (0.76-1.46) L 08/26/18 09:00 Yellow (Yellow) 08/25/18 12:40 Turbid (Clear) 08/25/18 12:40 7.0 (5.0-7.0) 08/25/18 12:40 Ur Specific [place] 1.009 (1.003-1.030) 08/25/18 12:40 100 mg/dl mg/dL (Negative) 08/25/18 12:40 Neg mg/dL (Negative) 08/25/18 12:40 Neg mg/dL (Negative) 08/25/18 12:40 Mod (Negative) 08/25/18 12:40 Neg (Negative) 08/25/18 12:40 Neg (Negative) 08/25/18 12:40 < 2.0 mg/dL (<2.0) 08/25/18 12:40 Ur Leukocyte Esterase Lg (Negative) 08/25/18 12:40 > 182.0 /HPF (0.0-6.0) H 08/25/18 12:40 10.0 /HPF (0.0-6.0) 08/25/18 12:40 U Epithel Cells (Auto) 5.0 /HPF (0-13.0) 08/25/18 12:40 2+ /HPF (Negative) 08/13/18 00:50 3+ /HPF 08/25/18 12:40 None seen (None Seen) 08/14/18 17:20 60.9 mg/dL (0.1-20.0) H 08/14/18 17:20 32 mmol/L 08/14/18 17:20 64 mg/dL (5-11.8) H 08/14/18 17:20 Presumptive negative 08/12/18 21:30 Presumptive negative 08/12/18 21:30 Ur Barbiturates Screen Presumptive negative 08/12/18 21:30 Ur Phencyclidine Scrn Presumptive negative 08/12/18 21:30 Ur Amphetamines Screen Presumptive negative 08/12/18 21:30 U Benzodiazepines Scrn Presumptive negative 08/12/18 21:30 Presumptive negative 08/12/18 21:30 U Marijuana (THC) Screen Presumptive negative 08/12/18 21:30 Disclamer 08/12/18 21:30 Blood Type O POSITIVE 08/15/18 15:31 Antibody Screen Negative 08/15/18 15:31 Crossmatch See Detail 08/15/18 15:31 Active Medications - Current Medications Current Medications: Generic Name Dose Route Start Last Admin Trade Name Freq PRN Reason Stop Dose Admin Acetaminophen 650 mg 08/13/18 11:40 09/10/18 23:47 Tylenol PO 650 mg Q6H PRN Administration Fever >101 Amlodipine Besylate 5 mg 09/02/18 10:00 09/11/18 11:54 Norvasc FEEDTUBE 5 mg QDAY LENCHO Administration Lipase/Protease/Amylase 1 each 09/10/18 17:12 Pancregarrett Alas 10,500 Unit FEEDTUBE PRN PRN For Clogged Feeding Tube Aspirin 325 mg 08/17/18 10:00 09/11/18 11:56 Aspirin PO 325 mg QDAY LENCHO Administration Atorvastatin Calcium 40 mg 08/14/18 22:00 09/11/18 22:04 Lipitor PO 40 mg QHS LENCHO Administration Dextrose 50 ml 08/13/18 01:34 D50w (25gm) Syringe IV PRN PRN Hypoglycemia Enoxaparin Sodium 40 mg 08/17/18 22:00 09/11/18 22:04 Lovenox SUB-Q 40 mg QDAY@2200 LENCHO Administration Famotidine 20 mg 08/19/18 10:00 09/11/18 22:04 Pepcid PO 20 mg BID LENCHO Administration Hydralazine HCl 100 mg 09/02/18 09:00 09/12/18 06:23 Apresoline PO 100 mg Q8HR LENCHO Administration Hydralazine HCl 20 mg 09/02/18 08:16 Apresoline IV Q4HR PRN SBP>160 or DBP>110 Hydrophilic Ointment 1 applic 08/13/18 12:21 Vaseline Lip Therapy TP Q2HR PRN Dry Lips Ceftriaxone Sodium 1 gm in 50 mls @ 100 mls/hr 09/12/18 10:00 Rocephin/Ns 1 Gm/50 Ml IV Q24HR [facility] Protocol Insulin Glargine 45 units 09/08/18 22:00 09/11/18 22:04 Lantus SUB-Q 45 units QHS [facility] Administration Insulin Human Lispro 0 unit 08/26/18 10:00 09/12/18 06:23 Humalog SUB-Q 4 unit Q4HR [facility] Administration Protocol Levetiracetam 500 mg 08/27/18 22:00 09/11/18 22:04 Keppra PO 500 mg BID LENCHO Administration Multi-Ingred Cream/Lotion/Oil/Oint 1 applic 08/13/18 12:21 08/17/18 00:41 Artificial Tears Ophth Oint OU 1 applic Q4HR PRN Administration Dry Eye(s) Ondansetron HCl 4 mg 08/13/18 01:34 Zofran IV Q8H PRN Nausea And Vomiting Senna/Docusate Sodium 2 tab 09/07/18 14:00 09/11/18 11:55 Senokot S PO 2 tab DAILY LENCHO Administration Simple Syrup 15 ml 09/10/18 17:12 Simple Syrup FEEDTUBE PRN PRN Hypoglycemia Simple Syrup 30 ml 09/10/18 17:12 Simple Syrup FEEDTUBE PRN PRN Hypoglycemia Sodium Bicarbonate 325 mg 09/10/18 17:12 Sodium Bicarbonate FEEDTUBE PRN PRN For Clogged Feeding Tube Sodium Chloride 10 ml 08/13/18 10:00 09/11/18 22:05 Sodium Chloride Flush Syringe 10 Ml IV 10 ml BID LENCHO Administration Sodium Chloride 10 ml 08/13/18 01:34 08/30/18 22:29 Sodium Chloride Flush Syringe 10 Ml IV 10 ml PRN PRN Administration LINE FLUSH Nutrition/Malnutrition Assess - Dietary Evaluation Nutrition/Malnutrition Findings: Nutrition Notes Start: 08/13/18 15:41 Freq: Status: Active Protocol: Document 09/10/18 16:59 RM (Rec: 09/10/18 17:12 RM [id number]) Nutrition Notes Initial or Follow up Reassessment Current Diagnosis Acute Kidney Injury,Diabetes Other Pertinent Diagnosis Trach,Hx CVA,PEG, Sacral PU, Multiple PU, Anoxic brain injury,R pneumothorax Current Diet Vital 1.2 at 60 ml/hr Labs/Tests Na 141 (09/08/18) Pertinent Medications Reviewed Height 5 ft 8 in Weight 81.4 kg [place] Body Weight (kg) 70.00 BMI 27.3 Subjective/Other Information Observed Jevity 1.2 infusing at 60 ml/hr. Per nurse pt is tolerating TF. Percent of energy/protein needs met: 95%/92% Burn Absent Trauma Absent #1 Nutrition Diagnosis Inadequate oral intake Diagnosis Progress(for reassessment Continues documentation) Is patient on ventilator? No Is Patient Ambulatory and/or Out of Bed No REE-([facility]-confined to bed) 3666.174 Calculation Used for Recommendations [facility] Additional Notes Protein Needs: 87-122g (1.2-1. 5g/kg) Fluid Needs: 1 ml/kcal Nutrition Intervention Nutrition Support: Jevity 1.2 at 60 ml/hr. Water flush 100 mls q 4 hrs. Kcal 1,728 Protein (gm) 80 Fluid (mL) 1,162 Add Supplement/Snack (indicate name/kcal Magen BID /protein ) Provides kCal: 190 Provides Protein (gm) 5 Goal #1 Continue to meet at least 75% of calorie and protein needs via TF Anticipated Discharge Needs: Jevity 1.2 Follow-Up By: 09/16/18 Additional Comments Follow for TF tolerance
[2018-09-12] MEDS: NORVASC FEEDTUBE SCH (11:05)
[2018-09-12] MEDS: ASPIRIN PO SCH (11:05)
[2018-09-12] MEDS: PEPCID PO SCH ×2 (11:06→22:21)
[2018-09-12] MEDS: KEPPRA PO SCH ×2 (11:06→22:21)
[2018-09-12] MEDS: ROCEPHIN/NS 1 GM/50 ML 1 GM/50 ML BAG IV SCH (11:07)
[2018-09-12] MEDS: SODIUM CHLORIDE FLUSH SYRINGE 10 ML IV SCH ×2 (11:08→22:22)
--- NOTE | 2018-09-12 14:13 | Progress Note ---
Subjective Date of service: 09/12/18 Principal diagnosis: Acute hypoxemic resp failure; S/P cardiac arrest; Seizures; DM II; H/O CVA Interval history: no interval change in the exam no evidence of recurrent seizure plan following andf monitor progress / prognosis for coma reversal is not good IMO Objective - Vital Sign Vital Signs - 12hr 09/12/18 09/12/18 09/12/18 04:29 07:18 08:00 Temperature 98.8 F 99.9 F H Pulse Rate 95 H Respiratory 20 16 Rate Blood Pressure 145/60 149/65 Blood Pressure [Left] O2 Sat by Pulse 100 Oximetry O2 Sat by Pulse 99 Oximetry [ Assessment] 09/12/18 09/12/18 10:00 11:35 Temperature 99.5 F Pulse Rate 90 Respiratory 20 Rate Blood Pressure Blood Pressure 133/56 [Left] O2 Sat by Pulse 99 100 Oximetry O2 Sat by Pulse Oximetry [ Assessment] - Laboratory Findings CBC and BMP: 09/12/18 05:07 09/12/18 05:07 Abnormal Lab Findings: Abnormal Labs 08/12/18 08/12/18 08/12/18 21:44 21:44 21:44 WBC 15.5 H RBC 3.12 L Hgb 8.8 L Hct 28.9 L MCV MCH MCHC 31 L RDW 19.5 H Lymph % (Auto) [place] % (Auto) Eos % (Auto) Lymph # [place] # Eos # Seg Neutrophils % Seg Neuts % (Manual) Lymphocytes % (Manual) 48.0 H Seg Neutrophils # Seg Neutrophils # Man Lymphocytes # (Manual) 7.4 H Eosinophils # (Manual) PT 17.8 H INR 1.37 H APTT D-Dimer Heparin Anti-Xa Level POC ABG pH POC ABG pCO2 POC ABG pO2 Sodium 159 H Potassium Chloride 118.5 H Carbon Dioxide BUN 34 H Creatinine Glucose 161 H POC Glucose Lactic Acid Calcium Magnesium AST Alkaline Phosphatase Total Creatine Kinase CK-MB (CK-2) Troponin T 0.105 H* C-Reactive Protein Total Protein Albumin Cholesterol LDL Cholesterol Direct HDL Cholesterol Free T4 Urine WBC (Auto) Urine Creatinine Urine Total Protein Crossmatch 08/13/18 08/13/18 08/13/18 00:32 00:47 00:47 WBC RBC Hgb 9.2 L Hct 29.6 L MCV MCH MCHC RDW Lymph % (Auto) [place] % (Auto) Eos % (Auto) Lymph # [place] # Eos # Seg Neutrophils % Seg Neuts % (Manual) Lymphocytes % (Manual) Seg Neutrophils # Seg Neutrophils # Man Lymphocytes # (Manual) Eosinophils # (Manual) PT 16.5 H INR 1.25 H APTT 37.3 H D-Dimer Heparin Anti-Xa Level POC ABG pH POC ABG pCO2 POC ABG pO2 Sodium Potassium Chloride Carbon Dioxide BUN Creatinine Glucose POC Glucose Lactic Acid Calcium Magnesium AST Alkaline Phosphatase Total Creatine Kinase 211 H CK-MB (CK-2) 7.7 H Troponin T 0.169 H* D C-Reactive Protein Total Protein Albumin Cholesterol 46 L LDL Cholesterol Direct 17 L HDL Cholesterol 6 L Free T4 Urine WBC (Auto) Urine Creatinine Urine Total Protein Crossmatch 08/13/18 08/13/18 08/13/18 00:50 02:25 05:34 WBC RBC Hgb Hct MCV MCH MCHC RDW Lymph % (Auto) [place] % (Auto) Eos % (Auto) Lymph # [place] # Eos # Seg Neutrophils % Seg Neuts % (Manual) Lymphocytes % (Manual) Seg Neutrophils # Seg Neutrophils # Man Lymphocytes # (Manual) Eosinophils # (Manual) PT INR APTT D-Dimer Heparin Anti-Xa Level POC ABG pH 7.503 H POC ABG pCO2 POC ABG pO2 253 H Sodium Potassium Chloride Carbon Dioxide BUN Creatinine Glucose POC Glucose Lactic Acid Calcium Magnesium AST Alkaline Phosphatase Total Creatine Kinase 311 H CK-MB (CK-2) 10.4 H Troponin T 0.283 H* D C-Reactive Protein Total Protein Albumin Cholesterol LDL Cholesterol Direct HDL Cholesterol Free T4 Urine WBC (Auto) > 182.0 H Urine Creatinine Urine Total Protein Crossmatch 08/13/18 08/13/18 08/13/18 06:35 10:10 10:10 WBC RBC Hgb Hct MCV MCH MCHC RDW Lymph % (Auto) [place] % (Auto) Eos % (Auto) Lymph # [place] # Eos # Seg Neutrophils % Seg Neuts % (Manual) Lymphocytes % (Manual) Seg Neutrophils # Seg Neutrophils # Man Lymphocytes # (Manual) Eosinophils # (Manual) PT INR APTT D-Dimer Heparin Anti-Xa Level POC ABG pH 7.554 H POC ABG pCO2 33.5 L POC ABG pO2 220 H Sodium 158 H Potassium Chloride 117.1 H Carbon Dioxide BUN 53 H Creatinine 2.0 H Glucose 247 H POC Glucose Lactic Acid Calcium 8.2 L Magnesium AST Alkaline Phosphatase Total Creatine Kinase 309 H CK-MB (CK-2) 4.1 H Troponin T 0.470 H* D C-Reactive Protein Total Protein Albumin Cholesterol LDL Cholesterol Direct HDL Cholesterol Free T4 Urine WBC (Auto) Urine Creatinine Urine Total Protein Crossmatch 08/13/18 08/13/18 08/13/18 12:53 12:53 17:55 WBC RBC Hgb Hct MCV MCH MCHC RDW Lymph % (Auto) [place] % (Auto) Eos % (Auto) Lymph # [place] # Eos # Seg Neutrophils % Seg Neuts % (Manual) Lymphocytes % (Manual) Seg Neutrophils # Seg Neutrophils # Man Lymphocytes # (Manual) Eosinophils # (Manual) PT INR APTT D-Dimer Heparin Anti-Xa Level POC ABG pH POC ABG pCO2 POC ABG pO2 Sodium Potassium Chloride Carbon Dioxide BUN Creatinine Glucose POC Glucose 308 H Lactic Acid 2.80 H* Calcium Magnesium 2.50 H AST Alkaline Phosphatase Total Creatine Kinase CK-MB (CK-2) Troponin T C-Reactive Protein 16.90 H Total Protein Albumin Cholesterol LDL Cholesterol Direct HDL Cholesterol Free T4 Urine WBC (Auto) Urine Creatinine Urine Total Protein Crossmatch 08/13/18 08/13/18 08/13/18 20:07 21:16 23:17 WBC RBC Hgb Hct MCV MCH MCHC RDW Lymph % (Auto) [place] % (Auto) Eos % (Auto) Lymph # [place] # Eos # Seg Neutrophils % Seg Neuts % (Manual) Lymphocytes % (Manual) Seg Neutrophils # Seg Neutrophils # Man Lymphocytes # (Manual) Eosinophils # (Manual) PT INR APTT D-Dimer 2742.50 H Heparin Anti-Xa Level POC ABG pH 7.483 H POC ABG pCO2 30.8 L POC ABG pO2 150 H Sodium Potassium Chloride Carbon Dioxide BUN Creatinine Glucose POC Glucose 245 H Lactic Acid Calcium Magnesium AST Alkaline Phosphatase Total Creatine Kinase CK-MB (CK-2) Troponin T C-Reactive Protein Total Protein Albumin Cholesterol LDL Cholesterol Direct HDL Cholesterol Free T4 Urine WBC (Auto) Urine Creatinine Urine Total Protein Crossmatch 08/14/18 08/14/18 08/14/18 04:03 04:03 04:56 WBC 18.2 H RBC 2.62 L Hgb 7.3 L Hct 24.5 L MCV MCH MCHC RDW 18.9 H Lymph % (Auto) [place] % (Auto) Eos % (Auto) Lymph # [place] # 1.2 H Eos # Seg Neutrophils % 79.4 H Seg Neuts % (Manual) Lymphocytes % (Manual) Seg Neutrophils # 14.5 H Seg Neutrophils # Man Lymphocytes # (Manual) Eosinophils # (Manual) PT INR APTT D-Dimer Heparin Anti-Xa Level POC ABG pH POC ABG pCO2 33.5 L POC ABG pO2 153 H Sodium 152 H Potassium 3.4 L Chloride 113.8 H Carbon Dioxide BUN 72 H Creatinine 2.7 H Glucose 239 H POC Glucose Lactic Acid Calcium 7.6 L Magnesium AST 50 H Alkaline Phosphatase 219 H Total Creatine Kinase CK-MB (CK-2) Troponin T 0.409 H* C-Reactive Protein Total Protein 6.2 L Albumin 1.9 L Cholesterol LDL Cholesterol Direct HDL Cholesterol Free T4 Urine WBC (Auto) Urine Creatinine Urine Total Protein Crossmatch 08/14/18 08/14/18 08/14/18 05:18 13:38 15:35 WBC RBC Hgb Hct MCV MCH MCHC RDW Lymph % (Auto) [place] % (Auto) Eos % (Auto) Lymph # [place] # Eos # Seg Neutrophils % Seg Neuts % (Manual) Lymphocytes % (Manual) Seg Neutrophils # Seg Neutrophils # Man Lymphocytes # (Manual) Eosinophils # (Manual) PT INR APTT D-Dimer Heparin Anti-Xa Level POC ABG pH POC ABG pCO2 POC ABG pO2 Sodium 150 H Potassium 3.2 L Chloride 114.5 H Carbon Dioxide BUN 69 H Creatinine 2.3 H Glucose 247 H POC Glucose 242 H 296 H Lactic Acid Calcium 7.2 L Magnesium AST Alkaline Phosphatase Total Creatine Kinase CK-MB (CK-2) Troponin T C-Reactive Protein Total Protein Albumin Cholesterol LDL Cholesterol Direct HDL Cholesterol Free T4 Urine WBC (Auto) Urine Creatinine Urine Total Protein Crossmatch 08/14/18 08/14/18 08/14/18 17:01 17:20 23:47 WBC RBC Hgb Hct MCV MCH MCHC RDW Lymph % (Auto) [place] % (Auto) Eos % (Auto) Lymph # [place] # Eos # Seg Neutrophils % Seg Neuts % (Manual) Lymphocytes % (Manual) Seg Neutrophils # Seg Neutrophils # Man Lymphocytes # (Manual) Eosinophils # (Manual) PT INR APTT D-Dimer Heparin Anti-Xa Level POC ABG pH POC ABG pCO2 POC ABG pO2 Sodium Potassium Chloride Carbon Dioxide BUN Creatinine Glucose POC Glucose 261 H 280 H Lactic Acid Calcium Magnesium AST Alkaline Phosphatase Total Creatine Kinase CK-MB (CK-2) Troponin T C-Reactive Protein Total Protein Albumin Cholesterol LDL Cholesterol Direct HDL Cholesterol Free T4 Urine WBC (Auto) Urine Creatinine 60.9 H Urine Total Protein 64 H Crossmatch 08/15/18 08/15/18 08/15/18 04:05 04:05 04:05 WBC RBC Hgb 6.3 L Hct 19.7 L* MCV MCH MCHC RDW Lymph % (Auto) [place] % (Auto) Eos % (Auto) Lymph # [place] # Eos # Seg Neutrophils % Seg Neuts % (Manual) Lymphocytes % (Manual) Seg Neutrophils # Seg Neutrophils # Man Lymphocytes # (Manual) Eosinophils # (Manual) PT INR APTT D-Dimer Heparin Anti-Xa Level 0.17 L POC ABG pH POC ABG pCO2 POC ABG pO2 Sodium 146 H Potassium 3.0 L Chloride 110.6 H Carbon Dioxide BUN 64 H Creatinine 2.2 H Glucose 231 H POC Glucose Lactic Acid Calcium 7.1 L Magnesium AST Alkaline Phosphatase Total Creatine Kinase CK-MB (CK-2) Troponin T C-Reactive Protein Total Protein Albumin Cholesterol LDL Cholesterol Direct HDL Cholesterol Free T4 Urine WBC (Auto) Urine Creatinine Urine Total Protein Crossmatch 08/15/18 08/15/18 08/15/18 05:21 05:26 06:35 WBC RBC Hgb Hct MCV MCH MCHC RDW Lymph % (Auto) [place] % (Auto) Eos % (Auto) Lymph # [place] # Eos # Seg Neutrophils % Seg Neuts % (Manual) Lymphocytes % (Manual) Seg Neutrophils # Seg Neutrophils # Man Lymphocytes # (Manual) Eosinophils # (Manual) PT INR APTT 79.0 H* D-Dimer Heparin Anti-Xa Level POC ABG pH 7.494 H POC ABG pCO2 POC ABG pO2 155 H Sodium Potassium Chloride Carbon Dioxide BUN Creatinine Glucose POC Glucose 271 H Lactic Acid Calcium Magnesium AST Alkaline Phosphatase Total Creatine Kinase CK-MB (CK-2) Troponin T C-Reactive Protein Total Protein Albumin Cholesterol LDL Cholesterol Direct HDL Cholesterol Free T4 Urine WBC (Auto) Urine Creatinine Urine Total Protein Crossmatch 08/15/18 08/15/18 08/15/18 12:10 15:31 17:27 WBC RBC Hgb Hct MCV MCH MCHC RDW Lymph % (Auto) [place] % (Auto) Eos % (Auto) Lymph # [place] # Eos # Seg Neutrophils % Seg Neuts % (Manual) Lymphocytes % (Manual) Seg Neutrophils # Seg Neutrophils # Man Lymphocytes # (Manual) Eosinophils # (Manual) PT INR APTT D-Dimer Heparin Anti-Xa Level POC ABG pH POC ABG pCO2 POC ABG pO2 Sodium Potassium Chloride Carbon Dioxide BUN Creatinine Glucose POC Glucose 301 H 287 H Lactic Acid Calcium Magnesium AST Alkaline Phosphatase Total Creatine Kinase CK-MB (CK-2) Troponin T C-Reactive Protein Total Protein Albumin Cholesterol LDL Cholesterol Direct HDL Cholesterol Free T4 Urine WBC (Auto) Urine Creatinine Urine Total Protein Crossmatch See Detail 08/15/18 08/15/18 08/16/18 21:41 23:45 04:13 WBC RBC Hgb Hct MCV MCH MCHC RDW Lymph % (Auto) [place] % (Auto) Eos % (Auto) Lymph # [place] # Eos # Seg Neutrophils % Seg Neuts % (Manual) Lymphocytes % (Manual) Seg Neutrophils # Seg Neutrophils # Man Lymphocytes # (Manual) Eosinophils # (Manual) PT INR APTT D-Dimer Heparin Anti-Xa Level 0.19 L POC ABG pH POC ABG pCO2 32.1 L POC ABG pO2 107 H Sodium Potassium Chloride Carbon Dioxide BUN Creatinine Glucose POC Glucose 163 H Lactic Acid Calcium Magnesium AST Alkaline Phosphatase Total Creatine Kinase CK-MB (CK-2) Troponin T C-Reactive Protein Total Protein Albumin Cholesterol LDL Cholesterol Direct HDL Cholesterol Free T4 Urine WBC (Auto) Urine Creatinine Urine Total Protein Crossmatch 08/16/18 08/16/18 08/16/18 04:50 05:28 11:30 WBC RBC 2.67 L Hgb 8.1 L Hct 23.4 L MCV MCH MCHC 35 H RDW 18.3 H Lymph % (Auto) [place] % (Auto) Eos % (Auto) Lymph # [place] # Eos # Seg Neutrophils % Seg Neuts % (Manual) Lymphocytes % (Manual) Seg Neutrophils # Seg Neutrophils # Man Lymphocytes # (Manual) Eosinophils # (Manual) PT INR APTT D-Dimer Heparin Anti-Xa Level 0.19 L POC ABG pH POC ABG pCO2 POC ABG pO2 Sodium Potassium Chloride Carbon Dioxide BUN Creatinine Glucose POC Glucose 141 H Lactic Acid Calcium Magnesium AST Alkaline Phosphatase Total Creatine Kinase CK-MB (CK-2) Troponin T C-Reactive Protein Total Protein Albumin Cholesterol LDL Cholesterol Direct HDL Cholesterol Free T4 Urine WBC (Auto) Urine Creatinine Urine Total Protein Crossmatch 0508/16/18 08/16/18 11:30 12:00 12:01 WBC RBC Hgb Hct MCV MCH MCHC RDW Lymph % (Auto) [place] % (Auto) Eos % (Auto) Lymph # [place] # Eos # Seg Neutrophils % Seg Neuts % (Manual) Lymphocytes % (Manual) Seg Neutrophils # Seg Neutrophils # Man Lymphocytes # (Manual) Eosinophils # (Manual) PT INR APTT D-Dimer Heparin Anti-Xa Level 0.15 L POC ABG pH POC ABG pCO2 POC ABG pO2 Sodium Potassium Chloride 107.8 H Carbon Dioxide 21 L BUN 47 H Creatinine 1.6 H Glucose 221 H POC Glucose 267 H Lactic Acid Calcium 6.9 L Magnesium AST Alkaline Phosphatase Total Creatine Kinase CK-MB (CK-2) Troponin T C-Reactive Protein Total Protein Albumin Cholesterol LDL Cholesterol Direct HDL Cholesterol Free T4 Urine WBC (Auto) Urine Creatinine Urine Total Protein Crossmatch 08/16/18 08/16/18 08/16/18 17:23 20:01 23:13 WBC RBC Hgb Hct MCV MCH MCHC RDW Lymph % (Auto) [place] % (Auto) Eos % (Auto) Lymph # [place] # Eos # Seg Neutrophils % Seg Neuts % (Manual) Lymphocytes % (Manual) Seg Neutrophils # Seg Neutrophils # Man Lymphocytes # (Manual) Eosinophils # (Manual) PT INR APTT D-Dimer Heparin Anti-Xa Level 0.26 L POC ABG pH POC ABG pCO2 POC ABG pO2 Sodium Potassium Chloride Carbon Dioxide BUN Creatinine Glucose POC Glucose 245 H 256 H Lactic Acid Calcium Magnesium AST Alkaline Phosphatase Total Creatine Kinase CK-MB (CK-2) Troponin T C-Reactive Protein Total Protein Albumin Cholesterol LDL Cholesterol Direct HDL Cholesterol Free T4 Urine WBC (Auto) Urine Creatinine Urine Total Protein Crossmatch 08/17/18 08/17/18 08/17/18 04:29 04:55 05:34 WBC RBC Hgb 8.2 L Hct 24.3 L MCV MCH MCHC RDW Lymph % (Auto) [place] % (Auto) Eos % (Auto) Lymph # [place] # Eos # Seg Neutrophils % Seg Neuts % (Manual) Lymphocytes % (Manual) Seg Neutrophils # Seg Neutrophils # Man Lymphocytes # (Manual) Eosinophils # (Manual) PT INR APTT D-Dimer Heparin Anti-Xa Level POC ABG pH POC ABG pCO2 32.4 L POC ABG pO2 108 H Sodium Potassium Chloride Carbon Dioxide BUN Creatinine Glucose POC Glucose 268 H Lactic Acid Calcium Magnesium AST Alkaline Phosphatase Total Creatine Kinase CK-MB (CK-2) Troponin T C-Reactive Protein Total Protein Albumin Cholesterol LDL Cholesterol Direct HDL Cholesterol Free T4 Urine WBC (Auto) Urine Creatinine Urine Total Protein Crossmatch 08/17/18 08/17/18 08/17/18 11:54 13:44 17:24 WBC RBC Hgb Hct MCV MCH MCHC RDW Lymph % (Auto) [place] % (Auto) Eos % (Auto) Lymph # [place] # Eos # Seg Neutrophils % Seg Neuts % (Manual) Lymphocytes % (Manual) Seg Neutrophils # Seg Neutrophils # Man Lymphocytes # (Manual) Eosinophils # (Manual) PT INR APTT D-Dimer Heparin Anti-Xa Level POC ABG pH POC ABG pCO2 32.7 L POC ABG pO2 142 H Sodium Potassium Chloride Carbon Dioxide BUN Creatinine Glucose POC Glucose 295 H 283 H Lactic Acid Calcium Magnesium AST Alkaline Phosphatase Total Creatine Kinase CK-MB (CK-2) Troponin T C-Reactive Protein Total Protein Albumin Cholesterol LDL Cholesterol Direct HDL Cholesterol Free T4 Urine WBC (Auto) Urine Creatinine Urine Total Protein Crossmatch 08/18/18 08/18/18 08/18/18 00:05 00:59 04:15 WBC RBC Hgb Hct MCV MCH MCHC RDW Lymph % (Auto) [place] % (Auto) Eos % (Auto) Lymph # [place] # Eos # Seg Neutrophils % Seg Neuts % (Manual) Lymphocytes % (Manual) Seg Neutrophils # Seg Neutrophils # Man Lymphocytes # (Manual) Eosinophils # (Manual) PT INR APTT D-Dimer Heparin Anti-Xa Level POC ABG pH POC ABG pCO2 POC ABG pO2 115 H Sodium Potassium Chloride Carbon Dioxide BUN Creatinine Glucose POC Glucose 247 H 251 H Lactic Acid Calcium Magnesium AST Alkaline Phosphatase Total Creatine Kinase CK-MB (CK-2) Troponin T C-Reactive Protein Total Protein Albumin Cholesterol LDL Cholesterol Direct HDL Cholesterol Free T4 Urine WBC (Auto) Urine Creatinine Urine Total Protein Crossmatch 08/18/18 08/18/18 08/18/18 05:02 12:20 17:51 WBC RBC Hgb Hct MCV MCH MCHC RDW Lymph % (Auto) [place] % (Auto) Eos % (Auto) Lymph # [place] # Eos # Seg Neutrophils % Seg Neuts % (Manual) Lymphocytes % (Manual) Seg Neutrophils # Seg Neutrophils # Man Lymphocytes # (Manual) Eosinophils # (Manual) PT INR APTT D-Dimer Heparin Anti-Xa Level POC ABG pH POC ABG pCO2 POC ABG pO2 Sodium Potassium Chloride Carbon Dioxide BUN Creatinine Glucose POC Glucose 282 H 209 H 261 H Lactic Acid Calcium Magnesium AST Alkaline Phosphatase Total Creatine Kinase CK-MB (CK-2) Troponin T C-Reactive Protein Total Protein Albumin Cholesterol LDL Cholesterol Direct HDL Cholesterol Free T4 Urine WBC (Auto) Urine Creatinine Urine Total Protein Crossmatch 08/18/18 08/19/18 08/19/18 23:30 04:54 05:16 WBC RBC 2.62 L Hgb 7.5 L Hct 23.1 L MCV MCH MCHC RDW 18.1 H Lymph % (Auto) [place] % (Auto) Eos % (Auto) Lymph # [place] # Eos # Seg Neutrophils % Seg Neuts % (Manual) Lymphocytes % (Manual) Seg Neutrophils # Seg Neutrophils # Man Lymphocytes # (Manual) Eosinophils # (Manual) PT INR APTT D-Dimer Heparin Anti-Xa Level POC ABG pH POC ABG pCO2 POC ABG pO2 58 L Sodium Potassium Chloride Carbon Dioxide BUN Creatinine Glucose POC Glucose 231 H Lactic Acid Calcium Magnesium AST Alkaline Phosphatase Total Creatine Kinase CK-MB (CK-2) Troponin T C-Reactive Protein Total Protein Albumin Cholesterol LDL Cholesterol Direct HDL Cholesterol Free T4 Urine WBC (Auto) Urine Creatinine Urine Total Protein Crossmatch 08/19/18 08/19/18 08/19/18 05:16 05:40 11:56 WBC RBC Hgb Hct MCV MCH MCHC RDW Lymph % (Auto) [place] % (Auto) Eos % (Auto) Lymph # [place] # Eos # Seg Neutrophils % Seg Neuts % (Manual) Lymphocytes % (Manual) Seg Neutrophils # Seg Neutrophils # Man Lymphocytes # (Manual) Eosinophils # (Manual) PT INR APTT D-Dimer Heparin Anti-Xa Level POC ABG pH POC ABG pCO2 POC ABG pO2 Sodium 152 H D Potassium Chloride 118.7 H Carbon Dioxide BUN 38 H Creatinine Glucose 220 H POC Glucose 227 H 213 H Lactic Acid Calcium 8.1 L D Magnesium AST Alkaline Phosphatase Total Creatine Kinase CK-MB (CK-2) Troponin T C-Reactive Protein Total Protein Albumin Cholesterol LDL Cholesterol Direct HDL Cholesterol Free T4 Urine WBC (Auto) Urine Creatinine Urine Total Protein Crossmatch 08/19/18 08/19/18 08/20/18 18:37 23:32 04:38 WBC RBC Hgb Hct MCV MCH MCHC RDW Lymph % (Auto) [place] % (Auto) Eos % (Auto) Lymph # [place] # Eos # Seg Neutrophils % Seg Neuts % (Manual) Lymphocytes % (Manual) Seg Neutrophils # Seg Neutrophils # Man Lymphocytes # (Manual) Eosinophils # (Manual) PT INR APTT D-Dimer Heparin Anti-Xa Level POC ABG pH POC ABG pCO2 POC ABG pO2 140 H Sodium Potassium Chloride Carbon Dioxide BUN Creatinine Glucose POC Glucose 227 H 245 H Lactic Acid Calcium Magnesium AST Alkaline Phosphatase Total Creatine Kinase CK-MB (CK-2) Troponin T C-Reactive Protein Total Protein Albumin Cholesterol LDL Cholesterol Direct HDL Cholesterol Free T4 Urine WBC (Auto) Urine Creatinine Urine Total Protein Crossmatch 08/20/18 08/20/18 08/20/18 05:31 05:37 05:37 WBC RBC 2.60 L Hgb 7.5 L Hct 22.9 L MCV MCH MCHC RDW 18.4 H Lymph % (Auto) [place] % (Auto) Eos % (Auto) Lymph # [place] # Eos # Seg Neutrophils % Seg Neuts % (Manual) Lymphocytes % (Manual) Seg Neutrophils # Seg Neutrophils # Man Lymphocytes # (Manual) Eosinophils # (Manual) PT INR APTT D-Dimer Heparin Anti-Xa Level POC ABG pH POC ABG pCO2 POC ABG pO2 Sodium 150 H Potassium Chloride 115.6 H Carbon Dioxide BUN 38 H Creatinine Glucose 276 H POC Glucose 266 H Lactic Acid Calcium 7.9 L Magnesium AST Alkaline Phosphatase Total Creatine Kinase CK-MB (CK-2) Troponin T C-Reactive Protein Total Protein Albumin Cholesterol LDL Cholesterol Direct HDL Cholesterol Free T4 Urine WBC (Auto) Urine Creatinine Urine Total Protein Crossmatch 08/20/18 08/20/18 08/20/18 14:01 18:20 23:11 WBC RBC Hgb Hct MCV MCH MCHC RDW Lymph % (Auto) [place] % (Auto) Eos % (Auto) Lymph # [place] # Eos # Seg Neutrophils % Seg Neuts % (Manual) Lymphocytes % (Manual) Seg Neutrophils # Seg Neutrophils # Man Lymphocytes # (Manual) Eosinophils # (Manual) PT INR APTT D-Dimer Heparin Anti-Xa Level POC ABG pH POC ABG pCO2 POC ABG pO2 Sodium Potassium Chloride Carbon Dioxide BUN Creatinine Glucose POC Glucose 305 H 271 H 218 H Lactic Acid Calcium Magnesium AST Alkaline Phosphatase Total Creatine Kinase CK-MB (CK-2) Troponin T C-Reactive Protein Total Protein Albumin Cholesterol LDL Cholesterol Direct HDL Cholesterol Free T4 Urine WBC (Auto) Urine Creatinine Urine Total Protein Crossmatch 08/21/18 08/21/18 08/21/18 04:41 04:41 06:20 WBC RBC 2.65 L Hgb 7.6 L Hct 23.3 L MCV MCH MCHC RDW 19.1 H Lymph % (Auto) [place] % (Auto) Eos % (Auto) Lymph # [place] # Eos # Seg Neutrophils % Seg Neuts % (Manual) Lymphocytes % (Manual) Seg Neutrophils # Seg Neutrophils # Man Lymphocytes # (Manual) Eosinophils # (Manual) PT INR APTT D-Dimer Heparin Anti-Xa Level POC ABG pH POC ABG pCO2 POC ABG pO2 Sodium 150 H Potassium Chloride 117.8 H Carbon Dioxide BUN 37 H Creatinine Glucose 233 H POC Glucose 262 H Lactic Acid Calcium 7.9 L Magnesium AST Alkaline Phosphatase Total Creatine Kinase CK-MB (CK-2) Troponin T C-Reactive Protein Total Protein Albumin Cholesterol LDL Cholesterol Direct HDL Cholesterol Free T4 Urine WBC (Auto) Urine Creatinine Urine Total Protein Crossmatch 08/21/18 08/21/18 08/21/18 10:18 12:04 12:36 WBC RBC Hgb Hct MCV MCH MCHC RDW Lymph % (Auto) [place] % (Auto) Eos % (Auto) Lymph # [place] # Eos # Seg Neutrophils % Seg Neuts % (Manual) Lymphocytes % (Manual) Seg Neutrophils # Seg Neutrophils # Man Lymphocytes # (Manual) Eosinophils # (Manual) PT INR APTT D-Dimer Heparin Anti-Xa Level POC ABG pH POC ABG pCO2 POC ABG pO2 Sodium Potassium Chloride Carbon Dioxide BUN Creatinine Glucose POC Glucose 256 H 245 H 255 H Lactic Acid Calcium Magnesium AST Alkaline Phosphatase Total Creatine Kinase CK-MB (CK-2) Troponin T C-Reactive Protein Total Protein Albumin Cholesterol LDL Cholesterol Direct HDL Cholesterol Free T4 Urine WBC (Auto) Urine Creatinine Urine Total Protein Crossmatch 08/21/18 08/21/18 08/22/18 17:36 23:29 05:01 WBC RBC Hgb Hct MCV MCH MCHC RDW Lymph % (Auto) [place] % (Auto) Eos % (Auto) Lymph # [place] # Eos # Seg Neutrophils % Seg Neuts % (Manual) Lymphocytes % (Manual) Seg Neutrophils # Seg Neutrophils # Man Lymphocytes # (Manual) Eosinophils # (Manual) PT INR APTT D-Dimer Heparin Anti-Xa Level POC ABG pH 7.466 H POC ABG pCO2 33.8 L POC ABG pO2 111 H Sodium Potassium Chloride Carbon Dioxide BUN Creatinine Glucose POC Glucose 263 H 268 H Lactic Acid Calcium Magnesium AST Alkaline Phosphatase Total Creatine Kinase CK-MB (CK-2) Troponin T C-Reactive Protein Total Protein Albumin Cholesterol LDL Cholesterol Direct HDL Cholesterol Free T4 Urine WBC (Auto) Urine Creatinine Urine Total Protein Crossmatch 08/22/18 08/22/18 08/22/18 05:05 12:05 12:15 WBC RBC Hgb Hct MCV MCH MCHC RDW Lymph % (Auto) [place] % (Auto) Eos % (Auto) Lymph # [place] # Eos # Seg Neutrophils % Seg Neuts % (Manual) Lymphocytes % (Manual) Seg Neutrophils # Seg Neutrophils # Man Lymphocytes # (Manual) Eosinophils # (Manual) PT INR APTT D-Dimer Heparin Anti-Xa Level POC ABG pH POC ABG pCO2 POC ABG pO2 Sodium 147 H Potassium Chloride 113.2 H Carbon Dioxide BUN 36 H Creatinine Glucose 249 H POC Glucose 256 H 228 H Lactic Acid Calcium 8.2 L Magnesium AST Alkaline Phosphatase Total Creatine Kinase CK-MB (CK-2) Troponin T C-Reactive Protein Total Protein Albumin Cholesterol LDL Cholesterol Direct HDL Cholesterol Free T4 Urine WBC (Auto) Urine Creatinine Urine Total Protein Crossmatch 08/22/18 08/23/18 08/23/18 17:30 00:03 05:05 WBC RBC Hgb Hct MCV MCH MCHC RDW Lymph % (Auto) [place] % (Auto) Eos % (Auto) Lymph # [place] # Eos # Seg Neutrophils % Seg Neuts % (Manual) Lymphocytes % (Manual) Seg Neutrophils # Seg Neutrophils # Man Lymphocytes # (Manual) Eosinophils # (Manual) PT INR APTT D-Dimer Heparin Anti-Xa Level POC ABG pH POC ABG pCO2 POC ABG pO2 Sodium Potassium Chloride Carbon Dioxide BUN Creatinine Glucose POC Glucose 291 H 259 H 247 H Lactic Acid Calcium Magnesium AST Alkaline Phosphatase Total Creatine Kinase CK-MB (CK-2) Troponin T C-Reactive Protein Total Protein Albumin Cholesterol LDL Cholesterol Direct HDL Cholesterol Free T4 Urine WBC (Auto) Urine Creatinine Urine Total Protein Crossmatch 08/23/18 08/23/18 08/23/18 05:14 12:29 17:21 WBC RBC Hgb Hct MCV MCH MCHC RDW Lymph % (Auto) [place] % (Auto) Eos % (Auto) Lymph # [place] # Eos # Seg Neutrophils % Seg Neuts % (Manual) Lymphocytes % (Manual) Seg Neutrophils # Seg Neutrophils # Man Lymphocytes # (Manual) Eosinophils # (Manual) PT INR APTT D-Dimer Heparin Anti-Xa Level POC ABG pH POC ABG pCO2 POC ABG pO2 Sodium Potassium Chloride Carbon Dioxide BUN Creatinine Glucose POC Glucose 208 H 138 H 175 H Lactic Acid Calcium Magnesium AST Alkaline Phosphatase Total Creatine Kinase CK-MB (CK-2) Troponin T C-Reactive Protein Total Protein Albumin Cholesterol LDL Cholesterol Direct HDL Cholesterol Free T4 Urine WBC (Auto) Urine Creatinine Urine Total Protein Crossmatch 08/23/18 08/24/18 08/24/18 23:36 01:00 05:50 WBC RBC 2.92 L 2.90 L Hgb 8.3 L 8.2 L Hct 25.4 L 25.2 L MCV MCH MCHC RDW 18.9 H 18.6 H Lymph % (Auto) [place] % (Auto) 9.2 H Eos % (Auto) Lymph # [place] # Eos # Seg Neutrophils % Seg Neuts % (Manual) Lymphocytes % (Manual) Seg Neutrophils # Seg Neutrophils # Man Lymphocytes # (Manual) Eosinophils # (Manual) PT INR APTT D-Dimer Heparin Anti-Xa Level POC ABG pH POC ABG pCO2 POC ABG pO2 Sodium Potassium Chloride Carbon Dioxide BUN Creatinine Glucose POC Glucose 163 H Lactic Acid Calcium Magnesium AST Alkaline Phosphatase Total Creatine Kinase CK-MB (CK-2) Troponin T C-Reactive Protein Total Protein Albumin Cholesterol LDL Cholesterol Direct HDL Cholesterol Free T4 Urine WBC (Auto) Urine Creatinine Urine Total Protein Crossmatch 08/24/18 08/24/18 08/24/18 05:50 12:26 18:37 WBC RBC Hgb Hct MCV MCH MCHC RDW Lymph % (Auto) [place] % (Auto) Eos % (Auto) Lymph # [place] # Eos # Seg Neutrophils % Seg Neuts % (Manual) Lymphocytes % (Manual) Seg Neutrophils # Seg Neutrophils # Man Lymphocytes # (Manual) Eosinophils # (Manual) PT INR APTT D-Dimer Heparin Anti-Xa Level POC ABG pH POC ABG pCO2 POC ABG pO2 Sodium 147 H Potassium Chloride 113.6 H Carbon Dioxide BUN 33 H Creatinine Glucose 210 H POC Glucose 223 H 166 H Lactic Acid Calcium 8.3 L Magnesium AST Alkaline Phosphatase Total Creatine Kinase CK-MB (CK-2) Troponin T C-Reactive Protein Total Protein Albumin Cholesterol LDL Cholesterol Direct HDL Cholesterol Free T4 Urine WBC (Auto) Urine Creatinine Urine Total Protein Crossmatch 08/24/18 08/25/18 08/25/18 23:47 04:55 04:55 WBC RBC 2.94 L Hgb 8.4 L Hct 25.1 L MCV MCH MCHC RDW 18.2 H Lymph % (Auto) [place] % (Auto) Eos % (Auto) Lymph # [place] # Eos # Seg Neutrophils % Seg Neuts % (Manual) Lymphocytes % (Manual) Seg Neutrophils # Seg Neutrophils # Man Lymphocytes # (Manual) Eosinophils # (Manual) PT INR APTT D-Dimer Heparin Anti-Xa Level POC ABG pH POC ABG pCO2 POC ABG pO2 Sodium Potassium Chloride 110.2 H Carbon Dioxide BUN 30 H Creatinine Glucose POC Glucose 126 H Lactic Acid Calcium 8.1 L Magnesium AST Alkaline Phosphatase Total Creatine Kinase CK-MB (CK-2) Troponin T C-Reactive Protein Total Protein Albumin Cholesterol LDL Cholesterol Direct HDL Cholesterol Free T4 Urine WBC (Auto) Urine Creatinine Urine Total Protein Crossmatch 08/25/18 08/26/18 08/26/18 12:40 04:39 04:39 WBC RBC 2.96 L Hgb 8.3 L Hct 25.7 L MCV MCH MCHC RDW 18.2 H Lymph % (Auto) 10.5 L [place] % (Auto) 9.3 H Eos % (Auto) Lymph # 0.8 L [place] # Eos # Seg Neutrophils % 77.0 H Seg Neuts % (Manual) Lymphocytes % (Manual) Seg Neutrophils # Seg Neutrophils # Man Lymphocytes # (Manual) Eosinophils # (Manual) PT INR APTT D-Dimer Heparin Anti-Xa Level POC ABG pH POC ABG pCO2 POC ABG pO2 Sodium 147 H Potassium Chloride 113.5 H Carbon Dioxide BUN 27 H Creatinine 0.7 L Glucose 106 H POC Glucose Lactic Acid Calcium 8.0 L Magnesium AST Alkaline Phosphatase Total Creatine Kinase CK-MB (CK-2) Troponin T C-Reactive Protein Total Protein Albumin Cholesterol LDL Cholesterol Direct HDL Cholesterol Free T4 Urine WBC (Auto) > 182.0 H Urine Creatinine Urine Total Protein Crossmatch 08/26/18 08/26/18 08/26/18 05:27 09:00 09:54 WBC RBC Hgb Hct MCV MCH MCHC RDW Lymph % (Auto) [place] % (Auto) Eos % (Auto) Lymph # [place] # Eos # Seg Neutrophils % Seg Neuts % (Manual) Lymphocytes % (Manual) Seg Neutrophils # Seg Neutrophils # Man Lymphocytes # (Manual) Eosinophils # (Manual) PT INR APTT D-Dimer Heparin Anti-Xa Level POC ABG pH POC ABG pCO2 POC ABG pO2 Sodium Potassium Chloride Carbon Dioxide BUN Creatinine Glucose POC Glucose 120 H 170 H Lactic Acid Calcium Magnesium AST Alkaline Phosphatase Total Creatine Kinase CK-MB (CK-2) Troponin T C-Reactive Protein Total Protein Albumin Cholesterol LDL Cholesterol Direct HDL Cholesterol Free T4 0.51 L Urine WBC (Auto) Urine Creatinine Urine Total Protein Crossmatch 08/26/18 08/26/18 08/27/18 14:52 17:50 06:30 WBC RBC Hgb Hct MCV MCH MCHC RDW Lymph % (Auto) [place] % (Auto) Eos % (Auto) Lymph # [place] # Eos # Seg Neutrophils % Seg Neuts % (Manual) Lymphocytes % (Manual) Seg Neutrophils # Seg Neutrophils # Man Lymphocytes # (Manual) Eosinophils # (Manual) PT INR APTT D-Dimer Heparin Anti-Xa Level POC ABG pH POC ABG pCO2 POC ABG pO2 Sodium 150 H Potassium Chloride 114.8 H Carbon Dioxide BUN 24 H Creatinine 0.7 L Glucose 131 H POC Glucose 166 H 107 H Lactic Acid Calcium 7.8 L Magnesium AST Alkaline Phosphatase Total Creatine Kinase CK-MB (CK-2) Troponin T C-Reactive Protein Total Protein Albumin Cholesterol LDL Cholesterol Direct HDL Cholesterol Free T4 Urine WBC (Auto) Urine Creatinine Urine Total Protein Crossmatch 08/27/18 08/27/18 08/27/18 08:22 14:20 16:06 WBC RBC Hgb Hct MCV MCH MCHC RDW Lymph % (Auto) [place] % (Auto) Eos % (Auto) Lymph # [place] # Eos # Seg Neutrophils % Seg Neuts % (Manual) Lymphocytes % (Manual) Seg Neutrophils # Seg Neutrophils # Man Lymphocytes # (Manual) Eosinophils # (Manual) PT INR APTT D-Dimer Heparin Anti-Xa Level POC ABG pH POC ABG pCO2 POC ABG pO2 Sodium Potassium Chloride Carbon Dioxide BUN Creatinine Glucose POC Glucose 112 H 151 H 158 H Lactic Acid Calcium Magnesium AST Alkaline Phosphatase Total Creatine Kinase CK-MB (CK-2) Troponin T C-Reactive Protein Total Protein Albumin Cholesterol LDL Cholesterol Direct HDL Cholesterol Free T4 Urine WBC (Auto) Urine Creatinine Urine Total Protein Crossmatch 08/27/18 08/27/18 08/28/18 20:09 21:25 02:03 WBC RBC Hgb Hct MCV MCH MCHC RDW Lymph % (Auto) [place] % (Auto) Eos % (Auto) Lymph # [place] # Eos # Seg Neutrophils % Seg Neuts % (Manual) Lymphocytes % (Manual) Seg Neutrophils # Seg Neutrophils # Man Lymphocytes # (Manual) Eosinophils # (Manual) PT INR APTT D-Dimer Heparin Anti-Xa Level POC ABG pH POC ABG pCO2 POC ABG pO2 130 H Sodium Potassium Chloride Carbon Dioxide BUN Creatinine Glucose POC Glucose 226 H 250 H Lactic Acid Calcium Magnesium AST Alkaline Phosphatase Total Creatine Kinase CK-MB (CK-2) Troponin T C-Reactive Protein Total Protein Albumin Cholesterol LDL Cholesterol Direct HDL Cholesterol Free T4 Urine WBC (Auto) Urine Creatinine Urine Total Protein Crossmatch 08/28/18 08/28/18 08/28/18 05:56 07:15 13:17 WBC RBC Hgb Hct MCV MCH MCHC RDW Lymph % (Auto) [place] % (Auto) Eos % (Auto) Lymph # [place] # Eos # Seg Neutrophils % Seg Neuts % (Manual) Lymphocytes % (Manual) Seg Neutrophils # Seg Neutrophils # Man Lymphocytes # (Manual) Eosinophils # (Manual) PT INR APTT D-Dimer Heparin Anti-Xa Level POC ABG pH POC ABG pCO2 POC ABG pO2 Sodium Potassium Chloride Carbon Dioxide BUN Creatinine Glucose 198 H POC Glucose 221 H 188 H Lactic Acid Calcium 7.7 L Magnesium AST Alkaline Phosphatase Total Creatine Kinase CK-MB (CK-2) Troponin T C-Reactive Protein Total Protein Albumin Cholesterol LDL Cholesterol Direct HDL Cholesterol Free T4 Urine WBC (Auto) Urine Creatinine Urine Total Protein Crossmatch 08/28/18 08/28/18 08/28/18 15:53 18:12 22:35 WBC RBC Hgb Hct MCV MCH MCHC RDW Lymph % (Auto) [place] % (Auto) Eos % (Auto) Lymph # [place] # Eos # Seg Neutrophils % Seg Neuts % (Manual) Lymphocytes % (Manual) Seg Neutrophils # Seg Neutrophils # Man Lymphocytes # (Manual) Eosinophils # (Manual) PT INR APTT D-Dimer Heparin Anti-Xa Level POC ABG pH 7.457 H POC ABG pCO2 POC ABG pO2 Sodium Potassium Chloride Carbon Dioxide BUN Creatinine Glucose POC Glucose 197 H 225 H Lactic Acid Calcium Magnesium AST Alkaline Phosphatase Total Creatine Kinase CK-MB (CK-2) Troponin T C-Reactive Protein Total Protein Albumin Cholesterol LDL Cholesterol Direct HDL Cholesterol Free T4 Urine WBC (Auto) Urine Creatinine Urine Total Protein Crossmatch 08/29/18 08/29/18 08/29/18 03:04 10:47 14:25 WBC RBC Hgb Hct MCV MCH MCHC RDW Lymph % (Auto) [place] % (Auto) Eos % (Auto) Lymph # [place] # Eos # Seg Neutrophils % Seg Neuts % (Manual) Lymphocytes % (Manual) Seg Neutrophils # Seg Neutrophils # Man Lymphocytes # (Manual) Eosinophils # (Manual) PT INR APTT D-Dimer Heparin Anti-Xa Level POC ABG pH POC ABG pCO2 POC ABG pO2 Sodium Potassium Chloride Carbon Dioxide BUN Creatinine Glucose POC Glucose 223 H 371 H 266 H Lactic Acid Calcium Magnesium AST Alkaline Phosphatase Total Creatine Kinase CK-MB (CK-2) Troponin T C-Reactive Protein Total Protein Albumin Cholesterol LDL Cholesterol Direct HDL Cholesterol Free T4 Urine WBC (Auto) Urine Creatinine Urine Total Protein Crossmatch 08/29/18 08/29/18 08/29/18 16:45 17:36 21:33 WBC RBC Hgb Hct MCV MCH MCHC RDW Lymph % (Auto) [place] % (Auto) Eos % (Auto) Lymph # [place] # Eos # Seg Neutrophils % Seg Neuts % (Manual) Lymphocytes % (Manual) Seg Neutrophils # Seg Neutrophils # Man Lymphocytes # (Manual) Eosinophils # (Manual) PT INR APTT D-Dimer Heparin Anti-Xa Level POC ABG pH POC ABG pCO2 POC ABG pO2 118 H Sodium Potassium Chloride Carbon Dioxide BUN Creatinine Glucose POC Glucose 253 H 204 H Lactic Acid Calcium Magnesium AST Alkaline Phosphatase Total Creatine Kinase CK-MB (CK-2) Troponin T C-Reactive Protein Total Protein Albumin Cholesterol LDL Cholesterol Direct HDL Cholesterol Free T4 Urine WBC (Auto) Urine Creatinine Urine Total Protein Crossmatch 08/30/18 08/30/18 08/30/18 01:33 05:27 05:40 WBC RBC 3.12 L Hgb 8.5 L Hct 25.9 L MCV 83 L MCH 27 L MCHC RDW 18.3 H Lymph % (Auto) [place] % (Auto) 7.8 H Eos % (Auto) 8.8 H Lymph # [place] # Eos # 0.6 H Seg Neutrophils % Seg Neuts % (Manual) Lymphocytes % (Manual) Seg Neutrophils # Seg Neutrophils # Man Lymphocytes # (Manual) Eosinophils # (Manual) PT INR APTT D-Dimer Heparin Anti-Xa Level POC ABG pH POC ABG pCO2 POC ABG pO2 Sodium Potassium Chloride Carbon Dioxide BUN Creatinine Glucose POC Glucose 157 H 178 H Lactic Acid Calcium Magnesium AST Alkaline Phosphatase Total Creatine Kinase CK-MB (CK-2) Troponin T C-Reactive Protein Total Protein Albumin Cholesterol LDL Cholesterol Direct HDL Cholesterol Free T4 Urine WBC (Auto) Urine Creatinine Urine Total Protein Crossmatch 08/30/18 08/30/18 08/30/18 05:40 09:28 11:41 WBC RBC Hgb Hct MCV MCH MCHC RDW Lymph % (Auto) [place] % (Auto) Eos % (Auto) Lymph # [place] # Eos # Seg Neutrophils % Seg Neuts % (Manual) Lymphocytes % (Manual) Seg Neutrophils # Seg Neutrophils # Man Lymphocytes # (Manual) Eosinophils # (Manual) PT INR APTT D-Dimer Heparin Anti-Xa Level POC ABG pH POC ABG pCO2 POC ABG pO2 Sodium Potassium Chloride Carbon Dioxide BUN Creatinine 0.7 L Glucose 189 H POC Glucose 216 H 257 H Lactic Acid Calcium 8.2 L Magnesium AST 50 H Alkaline Phosphatase 158 H Total Creatine Kinase CK-MB (CK-2) Troponin T C-Reactive Protein Total Protein Albumin 1.6 L Cholesterol LDL Cholesterol Direct HDL Cholesterol Free T4 Urine WBC (Auto) Urine Creatinine Urine Total Protein Crossmatch 08/30/18 08/30/18 08/30/18 14:34 17:07 21:56 WBC RBC Hgb Hct MCV MCH MCHC RDW Lymph % (Auto) [place] % (Auto) Eos % (Auto) Lymph # [place] # Eos # Seg Neutrophils % Seg Neuts % (Manual) Lymphocytes % (Manual) Seg Neutrophils # Seg Neutrophils # Man Lymphocytes # (Manual) Eosinophils # (Manual) PT INR APTT D-Dimer Heparin Anti-Xa Level POC ABG pH POC ABG pCO2 POC ABG pO2 Sodium Potassium Chloride Carbon Dioxide BUN Creatinine Glucose POC Glucose 263 H 263 H 234 H Lactic Acid Calcium Magnesium AST Alkaline Phosphatase Total Creatine Kinase CK-MB (CK-2) Troponin T C-Reactive Protein Total Protein Albumin Cholesterol LDL Cholesterol Direct HDL Cholesterol Free T4 Urine WBC (Auto) Urine Creatinine Urine Total Protein Crossmatch 08/31/18 08/31/18 08/31/18 02:02 05:29 09:24 WBC RBC Hgb Hct MCV MCH MCHC RDW Lymph % (Auto) [place] % (Auto) Eos % (Auto) Lymph # [place] # Eos # Seg Neutrophils % Seg Neuts % (Manual) Lymphocytes % (Manual) Seg Neutrophils # Seg Neutrophils # Man Lymphocytes # (Manual) Eosinophils # (Manual) PT INR APTT D-Dimer Heparin Anti-Xa Level POC ABG pH POC ABG pCO2 POC ABG pO2 Sodium Potassium Chloride Carbon Dioxide BUN Creatinine Glucose POC Glucose 151 H 156 H 107 H Lactic Acid Calcium Magnesium AST Alkaline Phosphatase Total Creatine Kinase CK-MB (CK-2) Troponin T C-Reactive Protein Total Protein Albumin Cholesterol LDL Cholesterol Direct HDL Cholesterol Free T4 Urine WBC (Auto) Urine Creatinine Urine Total Protein Crossmatch 08/31/18 08/31/18 08/31/18 13:51 17:28 21:40 WBC RBC Hgb Hct MCV MCH MCHC RDW Lymph % (Auto) [place] % (Auto) Eos % (Auto) Lymph # [place] # Eos # Seg Neutrophils % Seg Neuts % (Manual) Lymphocytes % (Manual) Seg Neutrophils # Seg Neutrophils # Man Lymphocytes # (Manual) Eosinophils # (Manual) PT INR APTT D-Dimer Heparin Anti-Xa Level POC ABG pH POC ABG pCO2 POC ABG pO2 Sodium Potassium Chloride Carbon Dioxide BUN Creatinine Glucose POC Glucose 170 H 239 H 209 H Lactic Acid Calcium Magnesium AST Alkaline Phosphatase Total Creatine Kinase CK-MB (CK-2) Troponin T C-Reactive Protein Total Protein Albumin Cholesterol LDL Cholesterol Direct HDL Cholesterol Free T4 Urine WBC (Auto) Urine Creatinine Urine Total Protein Crossmatch 08/31/18 08/31/18 09/01/18 22:25 22:25 01:47 WBC RBC Hgb Hct MCV MCH MCHC RDW Lymph % (Auto) [place] % (Auto) Eos % (Auto) Lymph # [place] # Eos # Seg Neutrophils % Seg Neuts % (Manual) Lymphocytes % (Manual) Seg Neutrophils # Seg Neutrophils # Man Lymphocytes # (Manual) Eosinophils # (Manual) PT INR APTT D-Dimer Heparin Anti-Xa Level POC ABG pH POC ABG pCO2 45.6 H POC ABG pO2 135 H Sodium Potassium Chloride Carbon Dioxide BUN Creatinine Glucose POC Glucose 208 H 223 H Lactic Acid Calcium Magnesium AST Alkaline Phosphatase Total Creatine Kinase CK-MB (CK-2) Troponin T C-Reactive Protein Total Protein Albumin Cholesterol LDL Cholesterol Direct HDL Cholesterol Free T4 Urine WBC (Auto) Urine Creatinine Urine Total Protein Crossmatch 09/01/18 09/01/18 09/01/18 05:18 05:19 05:19 WBC RBC 3.08 L Hgb 8.5 L Hct 25.6 L MCV 83 L MCH MCHC RDW 18.7 H Lymph % (Auto) [place] % (Auto) 7.9 H Eos % (Auto) 6.1 H Lymph # [place] # Eos # Seg Neutrophils % Seg Neuts % (Manual) Lymphocytes % (Manual) Seg Neutrophils # Seg Neutrophils # Man Lymphocytes # (Manual) Eosinophils # (Manual) PT INR APTT D-Dimer Heparin Anti-Xa Level POC ABG pH POC ABG pCO2 POC ABG pO2 Sodium Potassium Chloride 107.9 H Carbon Dioxide BUN 21 H Creatinine 0.7 L Glucose 188 H POC Glucose 236 H Lactic Acid Calcium Magnesium AST Alkaline Phosphatase Total Creatine Kinase CK-MB (CK-2) Troponin T C-Reactive Protein Total Protein Albumin Cholesterol LDL Cholesterol Direct HDL Cholesterol Free T4 Urine WBC (Auto) Urine Creatinine Urine Total Protein Crossmatch 09/01/18 09/01/18 09/01/18 09:29 14:25 18:20 WBC RBC Hgb Hct MCV MCH MCHC RDW Lymph % (Auto) [place] % (Auto) Eos % (Auto) Lymph # [place] # Eos # Seg Neutrophils % Seg Neuts % (Manual) Lymphocytes % (Manual) Seg Neutrophils # Seg Neutrophils # Man Lymphocytes # (Manual) Eosinophils # (Manual) PT INR APTT D-Dimer Heparin Anti-Xa Level POC ABG pH POC ABG pCO2 POC ABG pO2 Sodium Potassium Chloride Carbon Dioxide BUN Creatinine Glucose POC Glucose 231 H 294 H 215 H Lactic Acid Calcium Magnesium AST Alkaline Phosphatase Total Creatine Kinase CK-MB (CK-2) Troponin T C-Reactive Protein Total Protein Albumin Cholesterol LDL Cholesterol Direct HDL Cholesterol Free T4 Urine WBC (Auto) Urine Creatinine Urine Total Protein Crossmatch 09/01/18 09/02/18 09/02/18 21:21 03:28 05:25 WBC RBC Hgb Hct MCV MCH MCHC RDW Lymph % (Auto) [place] % (Auto) Eos % (Auto) Lymph # [place] # Eos # Seg Neutrophils % Seg Neuts % (Manual) Lymphocytes % (Manual) Seg Neutrophils # Seg Neutrophils # Man Lymphocytes # (Manual) Eosinophils # (Manual) PT INR APTT D-Dimer Heparin Anti-Xa Level POC ABG pH POC ABG pCO2 POC ABG pO2 Sodium Potassium Chloride Carbon Dioxide BUN Creatinine Glucose POC Glucose 236 H 194 H 183 H Lactic Acid Calcium Magnesium AST Alkaline Phosphatase Total Creatine Kinase CK-MB (CK-2) Troponin T C-Reactive Protein Total Protein Albumin Cholesterol LDL Cholesterol Direct HDL Cholesterol Free T4 Urine WBC (Auto) Urine Creatinine Urine Total Protein Crossmatch 09/02/18 09/02/18 09/02/18 09:16 15:30 17:20 WBC RBC Hgb Hct MCV MCH MCHC RDW Lymph % (Auto) [place] % (Auto) Eos % (Auto) Lymph # [place] # Eos # Seg Neutrophils % Seg Neuts % (Manual) Lymphocytes % (Manual) Seg Neutrophils # Seg Neutrophils # Man Lymphocytes # (Manual) Eosinophils # (Manual) PT INR APTT D-Dimer Heparin Anti-Xa Level POC ABG pH POC ABG pCO2 POC ABG pO2 Sodium Potassium Chloride Carbon Dioxide BUN Creatinine Glucose POC Glucose 251 H 303 H 316 H Lactic Acid Calcium Magnesium AST Alkaline Phosphatase Total Creatine Kinase CK-MB (CK-2) Troponin T C-Reactive Protein Total Protein Albumin Cholesterol LDL Cholesterol Direct HDL Cholesterol Free T4 Urine WBC (Auto) Urine Creatinine Urine Total Protein Crossmatch 09/02/18 09/03/18 09/03/18 21:25 03:32 05:20 WBC RBC Hgb Hct MCV MCH MCHC RDW Lymph % (Auto) [place] % (Auto) Eos % (Auto) Lymph # [place] # Eos # Seg Neutrophils % Seg Neuts % (Manual) Lymphocytes % (Manual) Seg Neutrophils # Seg Neutrophils # Man Lymphocytes # (Manual) Eosinophils # (Manual) PT INR APTT D-Dimer Heparin Anti-Xa Level POC ABG pH POC ABG pCO2 POC ABG pO2 Sodium Potassium Chloride Carbon Dioxide BUN Creatinine Glucose POC Glucose 242 H 305 H 225 H Lactic Acid Calcium Magnesium AST Alkaline Phosphatase Total Creatine Kinase CK-MB (CK-2) Troponin T C-Reactive Protein Total Protein Albumin Cholesterol LDL Cholesterol Direct HDL Cholesterol Free T4 Urine WBC (Auto) Urine Creatinine Urine Total Protein Crossmatch 09/03/18 09/03/18 09/03/18 07:52 07:52 10:19 WBC RBC 3.29 L Hgb 9.0 L Hct 27.3 L MCV 83 L MCH 27 L MCHC RDW 18.4 H Lymph % (Auto) [place] % (Auto) Eos % (Auto) Lymph # [place] # Eos # Seg Neutrophils % Seg Neuts % (Manual) Lymphocytes % (Manual) Seg Neutrophils # Seg Neutrophils # Man Lymphocytes # (Manual) Eosinophils # (Manual) PT INR APTT D-Dimer Heparin Anti-Xa Level POC ABG pH POC ABG pCO2 POC ABG pO2 Sodium Potassium Chloride Carbon Dioxide BUN 23 H Creatinine Glucose 205 H POC Glucose 228 H Lactic Acid Calcium 7.9 L Magnesium AST Alkaline Phosphatase Total Creatine Kinase CK-MB (CK-2) Troponin T C-Reactive Protein Total Protein Albumin Cholesterol LDL Cholesterol Direct HDL Cholesterol Free T4 Urine WBC (Auto) Urine Creatinine Urine Total Protein Crossmatch 09/03/18 09/03/18 09/03/18 13:42 17:22 21:33 WBC RBC Hgb Hct MCV MCH MCHC RDW Lymph % (Auto) [place] % (Auto) Eos % (Auto) Lymph # [place] # Eos # Seg Neutrophils % Seg Neuts % (Manual) Lymphocytes % (Manual) Seg Neutrophils # Seg Neutrophils # Man Lymphocytes # (Manual) Eosinophils # (Manual) PT INR APTT D-Dimer Heparin Anti-Xa Level POC ABG pH POC ABG pCO2 POC ABG pO2 Sodium Potassium Chloride Carbon Dioxide BUN Creatinine Glucose POC Glucose 221 H 186 H 179 H Lactic Acid Calcium Magnesium AST Alkaline Phosphatase Total Creatine Kinase CK-MB (CK-2) Troponin T C-Reactive Protein Total Protein Albumin Cholesterol LDL Cholesterol Direct HDL Cholesterol Free T4 Urine WBC (Auto) Urine Creatinine Urine Total Protein Crossmatch 09/04/18 09/04/18 09/04/18 02:07 05:54 11:03 WBC RBC Hgb Hct MCV MCH MCHC RDW Lymph % (Auto) [place] % (Auto) Eos % (Auto) Lymph # [place] # Eos # Seg Neutrophils % Seg Neuts % (Manual) Lymphocytes % (Manual) Seg Neutrophils # Seg Neutrophils # Man Lymphocytes # (Manual) Eosinophils # (Manual) PT INR APTT D-Dimer Heparin Anti-Xa Level POC ABG pH POC ABG pCO2 POC ABG pO2 Sodium Potassium Chloride Carbon Dioxide BUN Creatinine Glucose POC Glucose 174 H 171 H 181 H Lactic Acid Calcium Magnesium AST Alkaline Phosphatase Total Creatine Kinase CK-MB (CK-2) Troponin T C-Reactive Protein Total Protein Albumin Cholesterol LDL Cholesterol Direct HDL Cholesterol Free T4 Urine WBC (Auto) Urine Creatinine Urine Total Protein Crossmatch 09/04/18 09/04/18 09/04/18 14:59 18:24 21:50 WBC RBC Hgb Hct MCV MCH MCHC RDW Lymph % (Auto) [place] % (Auto) Eos % (Auto) Lymph # [place] # Eos # Seg Neutrophils % Seg Neuts % (Manual) Lymphocytes % (Manual) Seg Neutrophils # Seg Neutrophils # Man Lymphocytes # (Manual) Eosinophils # (Manual) PT INR APTT D-Dimer Heparin Anti-Xa Level POC ABG pH POC ABG pCO2 POC ABG pO2 Sodium Potassium Chloride Carbon Dioxide BUN Creatinine Glucose POC Glucose 204 H 236 H 197 H Lactic Acid Calcium Magnesium AST Alkaline Phosphatase Total Creatine Kinase CK-MB (CK-2) Troponin T C-Reactive Protein Total Protein Albumin Cholesterol LDL Cholesterol Direct HDL Cholesterol Free T4 Urine WBC (Auto) Urine Creatinine Urine Total Protein Crossmatch 09/05/18 09/05/18 09/05/18 01:32 04:52 04:52 WBC RBC 3.16 L Hgb 8.7 L Hct 26.0 L MCV 82 L MCH MCHC RDW 18.9 H Lymph % (Auto) [place] % (Auto) Eos % (Auto) Lymph # [place] # Eos # Seg Neutrophils % Seg Neuts % (Manual) Lymphocytes % (Manual) Seg Neutrophils # Seg Neutrophils # Man Lymphocytes # (Manual) Eosinophils # (Manual) PT INR APTT D-Dimer Heparin Anti-Xa Level POC ABG pH POC ABG pCO2 POC ABG pO2 Sodium Potassium Chloride 107.2 H Carbon Dioxide BUN 23 H Creatinine 0.7 L Glucose 215 H POC Glucose 210 H Lactic Acid Calcium 8.3 L Magnesium AST Alkaline Phosphatase Total Creatine Kinase CK-MB (CK-2) Troponin T C-Reactive Protein Total Protein Albumin Cholesterol LDL Cholesterol Direct HDL Cholesterol Free T4 Urine WBC (Auto) Urine Creatinine Urine Total Protein Crossmatch 09/05/18 09/05/18 09/05/18 05:36 10:26 13:11 WBC RBC Hgb Hct MCV MCH MCHC RDW Lymph % (Auto) [place] % (Auto) Eos % (Auto) Lymph # [place] # Eos # Seg Neutrophils % Seg Neuts % (Manual) Lymphocytes % (Manual) Seg Neutrophils # Seg Neutrophils # Man Lymphocytes # (Manual) Eosinophils # (Manual) PT INR APTT D-Dimer Heparin Anti-Xa Level POC ABG pH POC ABG pCO2 POC ABG pO2 Sodium Potassium Chloride Carbon Dioxide BUN Creatinine Glucose POC Glucose 216 H 206 H 161 H Lactic Acid Calcium Magnesium AST Alkaline Phosphatase Total Creatine Kinase CK-MB (CK-2) Troponin T C-Reactive Protein Total Protein Albumin Cholesterol LDL Cholesterol Direct HDL Cholesterol Free T4 Urine WBC (Auto) Urine Creatinine Urine Total Protein Crossmatch 09/05/18 09/05/18 09/05/18 18:27 18:32 22:05 WBC RBC Hgb Hct MCV MCH MCHC RDW Lymph % (Auto) [place] % (Auto) Eos % (Auto) Lymph # [place] # Eos # Seg Neutrophils % Seg Neuts % (Manual) Lymphocytes % (Manual) Seg Neutrophils # Seg Neutrophils # Man Lymphocytes # (Manual) Eosinophils # (Manual) PT INR APTT D-Dimer Heparin Anti-Xa Level POC ABG pH 7.478 H POC ABG pCO2 POC ABG pO2 138 H Sodium Potassium Chloride Carbon Dioxide BUN Creatinine Glucose POC Glucose 154 H 149 H Lactic Acid Calcium Magnesium AST Alkaline Phosphatase Total Creatine Kinase CK-MB (CK-2) Troponin T C-Reactive Protein Total Protein Albumin Cholesterol LDL Cholesterol Direct HDL Cholesterol Free T4 Urine WBC (Auto) Urine Creatinine Urine Total Protein Crossmatch 09/06/18 09/06/18 09/06/18 04:40 08:30 10:06 WBC RBC Hgb Hct MCV MCH MCHC RDW Lymph % (Auto) [place] % (Auto) Eos % (Auto) Lymph # [place] # Eos # Seg Neutrophils % Seg Neuts % (Manual) Lymphocytes % (Manual) Seg Neutrophils # Seg Neutrophils # Man Lymphocytes # (Manual) Eosinophils # (Manual) PT INR APTT D-Dimer Heparin Anti-Xa Level POC ABG pH POC ABG pCO2 POC ABG pO2 Sodium Potassium Chloride Carbon Dioxide BUN Creatinine Glucose POC Glucose 140 H 188 H 199 H Lactic Acid Calcium Magnesium AST Alkaline Phosphatase Total Creatine Kinase CK-MB (CK-2) Troponin T C-Reactive Protein Total Protein Albumin Cholesterol LDL Cholesterol Direct HDL Cholesterol Free T4 Urine WBC (Auto) Urine Creatinine Urine Total Protein Crossmatch 09/06/18 09/06/18 09/06/18 12:13 14:23 17:11 WBC RBC Hgb Hct MCV MCH MCHC RDW Lymph % (Auto) [place] % (Auto) Eos % (Auto) Lymph # [place] # Eos # Seg Neutrophils % Seg Neuts % (Manual) Lymphocytes % (Manual) Seg Neutrophils # Seg Neutrophils # Man Lymphocytes # (Manual) Eosinophils # (Manual) PT INR APTT D-Dimer Heparin Anti-Xa Level POC ABG pH POC ABG pCO2 POC ABG pO2 Sodium Potassium Chloride Carbon Dioxide BUN Creatinine Glucose POC Glucose 177 H 180 H 216 H Lactic Acid Calcium Magnesium AST Alkaline Phosphatase Total Creatine Kinase CK-MB (CK-2) Troponin T C-Reactive Protein Total Protein Albumin Cholesterol LDL Cholesterol Direct HDL Cholesterol Free T4 Urine WBC (Auto) Urine Creatinine Urine Total Protein Crossmatch 09/06/18 09/07/18 09/07/18 21:47 02:02 04:55 WBC RBC 3.08 L Hgb 8.5 L Hct 25.2 L MCV 82 L MCH MCHC RDW 18.8 H Lymph % (Auto) [place] % (Auto) Eos % (Auto) Lymph # 0.8 L [place] # Eos # Seg Neutrophils % 84.8 H Seg Neuts % (Manual) Lymphocytes % (Manual) Seg Neutrophils # Seg Neutrophils # Man Lymphocytes # (Manual) Eosinophils # (Manual) PT INR APTT D-Dimer Heparin Anti-Xa Level POC ABG pH POC ABG pCO2 POC ABG pO2 Sodium Potassium Chloride Carbon Dioxide BUN Creatinine Glucose POC Glucose 275 H 291 H Lactic Acid Calcium Magnesium AST Alkaline Phosphatase Total Creatine Kinase CK-MB (CK-2) Troponin T C-Reactive Protein Total Protein Albumin Cholesterol LDL Cholesterol Direct HDL Cholesterol Free T4 Urine WBC (Auto) Urine Creatinine Urine Total Protein Crossmatch 09/07/18 09/07/18 09/07/18 04:55 06:02 10:27 WBC RBC Hgb Hct MCV MCH MCHC RDW Lymph % (Auto) [place] % (Auto) Eos % (Auto) Lymph # [place] # Eos # Seg Neutrophils % Seg Neuts % (Manual) Lymphocytes % (Manual) Seg Neutrophils # Seg Neutrophils # Man Lymphocytes # (Manual) Eosinophils # (Manual) PT INR APTT D-Dimer Heparin Anti-Xa Level POC ABG pH POC ABG pCO2 POC ABG pO2 Sodium Potassium Chloride Carbon Dioxide BUN 30 H Creatinine 0.7 L Glucose 291 H POC Glucose 320 H 365 H Lactic Acid Calcium Magnesium AST Alkaline Phosphatase Total Creatine Kinase CK-MB (CK-2) Troponin T C-Reactive Protein Total Protein Albumin Cholesterol LDL Cholesterol Direct HDL Cholesterol Free T4 Urine WBC (Auto) Urine Creatinine Urine Total Protein Crossmatch 09/07/18 09/07/18 09/07/18 13:52 17:12 21:29 WBC RBC Hgb Hct MCV MCH MCHC RDW Lymph % (Auto) [place] % (Auto) Eos % (Auto) Lymph # [place] # Eos # Seg Neutrophils % Seg Neuts % (Manual) Lymphocytes % (Manual) Seg Neutrophils # Seg Neutrophils # Man Lymphocytes # (Manual) Eosinophils # (Manual) PT INR APTT D-Dimer Heparin Anti-Xa Level POC ABG pH POC ABG pCO2 POC ABG pO2 Sodium Potassium Chloride Carbon Dioxide BUN Creatinine Glucose POC Glucose 364 H 338 H 242 H Lactic Acid Calcium Magnesium AST Alkaline Phosphatase Total Creatine Kinase CK-MB (CK-2) Troponin T C-Reactive Protein Total Protein Albumin Cholesterol LDL Cholesterol Direct HDL Cholesterol Free T4 Urine WBC (Auto) Urine Creatinine Urine Total Protein Crossmatch 09/07/18 09/08/18 09/08/18 22:24 02:02 04:22 WBC 14.8 H RBC 3.15 L Hgb 8.5 L Hct 26.3 L MCV 83 L MCH 27 L MCHC RDW 19.6 H Lymph % (Auto) [place] % (Auto) Eos % (Auto) Lymph # [place] # Eos # Seg Neutrophils % Seg Neuts % (Manual) Lymphocytes % (Manual) Seg Neutrophils # Seg Neutrophils # Man Lymphocytes # (Manual) Eosinophils # (Manual) PT INR APTT D-Dimer Heparin Anti-Xa Level POC ABG pH 7.484 H POC ABG pCO2 POC ABG pO2 61 L Sodium Potassium Chloride Carbon Dioxide BUN Creatinine Glucose POC Glucose 324 H Lactic Acid Calcium Magnesium AST Alkaline Phosphatase Total Creatine Kinase CK-MB (CK-2) Troponin T C-Reactive Protein Total Protein Albumin Cholesterol LDL Cholesterol Direct HDL Cholesterol Free T4 Urine WBC (Auto) Urine Creatinine Urine Total Protein Crossmatch 09/08/18 09/08/18 09/08/18 04:22 05:33 09:40 WBC RBC Hgb Hct MCV MCH MCHC RDW Lymph % (Auto) [place] % (Auto) Eos % (Auto) Lymph # [place] # Eos # Seg Neutrophils % Seg Neuts % (Manual) Lymphocytes % (Manual) Seg Neutrophils # Seg Neutrophils # Man Lymphocytes # (Manual) Eosinophils # (Manual) PT INR APTT D-Dimer Heparin Anti-Xa Level POC ABG pH POC ABG pCO2 POC ABG pO2 Sodium Potassium Chloride Carbon Dioxide BUN 39 H Creatinine Glucose 320 H POC Glucose 324 H 329 H Lactic Acid Calcium 8.3 L Magnesium AST Alkaline Phosphatase Total Creatine Kinase CK-MB (CK-2) Troponin T C-Reactive Protein Total Protein Albumin Cholesterol LDL Cholesterol Direct HDL Cholesterol Free T4 Urine WBC (Auto) Urine Creatinine Urine Total Protein Crossmatch 09/08/18 09/08/18 09/08/18 13:11 18:02 21:27 WBC RBC Hgb Hct MCV MCH MCHC RDW Lymph % (Auto) [place] % (Auto) Eos % (Auto) Lymph # [place] # Eos # Seg Neutrophils % Seg Neuts % (Manual) Lymphocytes % (Manual) Seg Neutrophils # Seg Neutrophils # Man Lymphocytes # (Manual) Eosinophils # (Manual) PT INR APTT D-Dimer Heparin Anti-Xa Level POC ABG pH POC ABG pCO2 POC ABG pO2 Sodium Potassium Chloride Carbon Dioxide BUN Creatinine Glucose POC Glucose 369 H 331 H 304 H Lactic Acid Calcium Magnesium AST Alkaline Phosphatase Total Creatine Kinase CK-MB (CK-2) Troponin T C-Reactive Protein Total Protein Albumin Cholesterol LDL Cholesterol Direct HDL Cholesterol Free T4 Urine WBC (Auto) Urine Creatinine Urine Total Protein Crossmatch 09/09/18 09/09/18 09/09/18 02:03 05:29 09:20 WBC RBC Hgb Hct MCV MCH MCHC RDW Lymph % (Auto) [place] % (Auto) Eos % (Auto) Lymph # [place] # Eos # Seg Neutrophils % Seg Neuts % (Manual) Lymphocytes % (Manual) Seg Neutrophils # Seg Neutrophils # Man Lymphocytes # (Manual) Eosinophils # (Manual) PT INR APTT D-Dimer Heparin Anti-Xa Level POC ABG pH POC ABG pCO2 POC ABG pO2 Sodium Potassium Chloride Carbon Dioxide BUN Creatinine Glucose POC Glucose 361 H 204 H 292 H Lactic Acid Calcium Magnesium AST Alkaline Phosphatase Total Creatine Kinase CK-MB (CK-2) Troponin T C-Reactive Protein Total Protein Albumin Cholesterol LDL Cholesterol Direct HDL Cholesterol Free T4 Urine WBC (Auto) Urine Creatinine Urine Total Protein Crossmatch 09/09/18 09/09/18 09/09/18 14:20 15:04 18:08 WBC RBC Hgb Hct MCV MCH MCHC RDW Lymph % (Auto) [place] % (Auto) Eos % (Auto) Lymph # [place] # Eos # Seg Neutrophils % Seg Neuts % (Manual) Lymphocytes % (Manual) Seg Neutrophils # Seg Neutrophils # Man Lymphocytes # (Manual) Eosinophils # (Manual) PT INR APTT D-Dimer Heparin Anti-Xa Level POC ABG pH 7.464 H POC ABG pCO2 POC ABG pO2 109 H Sodium Potassium Chloride Carbon Dioxide BUN Creatinine Glucose POC Glucose 253 H 196 H Lactic Acid Calcium Magnesium AST Alkaline Phosphatase Total Creatine Kinase CK-MB (CK-2) Troponin T C-Reactive Protein Total Protein Albumin Cholesterol LDL Cholesterol Direct HDL Cholesterol Free T4 Urine WBC (Auto) Urine Creatinine Urine Total Protein Crossmatch 09/09/18 09/10/18 09/10/18 22:23 02:32 06:10 WBC RBC Hgb Hct MCV MCH MCHC RDW Lymph % (Auto) [place] % (Auto) Eos % (Auto) Lymph # [place] # Eos # Seg Neutrophils % Seg Neuts % (Manual) Lymphocytes % (Manual) Seg Neutrophils # Seg Neutrophils # Man Lymphocytes # (Manual) Eosinophils # (Manual) PT INR APTT D-Dimer Heparin Anti-Xa Level POC ABG pH POC ABG pCO2 POC ABG pO2 Sodium Potassium Chloride Carbon Dioxide BUN Creatinine Glucose POC Glucose 245 H 238 H 250 H Lactic Acid Calcium Magnesium AST Alkaline Phosphatase Total Creatine Kinase CK-MB (CK-2) Troponin T C-Reactive Protein Total Protein Albumin Cholesterol LDL Cholesterol Direct HDL Cholesterol Free T4 Urine WBC (Auto) Urine Creatinine Urine Total Protein Crossmatch 09/10/18 09/10/18 09/10/18 08:16 11:35 21:18 WBC RBC Hgb Hct MCV MCH MCHC RDW Lymph % (Auto) [place] % (Auto) Eos % (Auto) Lymph # [place] # Eos # Seg Neutrophils % Seg Neuts % (Manual) Lymphocytes % (Manual) Seg Neutrophils # Seg Neutrophils # Man Lymphocytes # (Manual) Eosinophils # (Manual) PT INR APTT D-Dimer Heparin Anti-Xa Level POC ABG pH POC ABG pCO2 POC ABG pO2 Sodium Potassium Chloride Carbon Dioxide BUN Creatinine Glucose POC Glucose 232 H 267 H 270 H Lactic Acid Calcium Magnesium AST Alkaline Phosphatase Total Creatine Kinase CK-MB (CK-2) Troponin T C-Reactive Protein Total Protein Albumin Cholesterol LDL Cholesterol Direct HDL Cholesterol Free T4 Urine WBC (Auto) Urine Creatinine Urine Total Protein Crossmatch 09/11/18 09/11/18 09/11/18 06:21 07:49 12:02 WBC RBC Hgb Hct MCV MCH MCHC RDW Lymph % (Auto) [place] % (Auto) Eos % (Auto) Lymph # [place] # Eos # Seg Neutrophils % Seg Neuts % (Manual) Lymphocytes % (Manual) Seg Neutrophils # Seg Neutrophils # Man Lymphocytes # (Manual) Eosinophils # (Manual) PT INR APTT D-Dimer Heparin Anti-Xa Level POC ABG pH POC ABG pCO2 POC ABG pO2 Sodium Potassium Chloride Carbon Dioxide BUN Creatinine Glucose POC Glucose 255 H 233 H 200 H Lactic Acid Calcium Magnesium AST Alkaline Phosphatase Total Creatine Kinase CK-MB (CK-2) Troponin T C-Reactive Protein Total Protein Albumin Cholesterol LDL Cholesterol Direct HDL Cholesterol Free T4 Urine WBC (Auto) Urine Creatinine Urine Total Protein Crossmatch 09/11/18 09/11/18 09/11/18 16:35 21:09 22:33 WBC 12.1 H RBC 3.16 L Hgb 8.5 L Hct 26.2 L MCV 83 L MCH 27 L MCHC RDW 20.7 H Lymph % (Auto) [place] % (Auto) Eos % (Auto) Lymph # [place] # Eos # Seg Neutrophils % Seg Neuts % (Manual) 77.0 H Lymphocytes % (Manual) 13.0 L Seg Neutrophils # Seg Neutrophils # Man 9.3 H Lymphocytes # (Manual) Eosinophils # (Manual) 0.5 H PT INR APTT D-Dimer Heparin Anti-Xa Level POC ABG pH POC ABG pCO2 POC ABG pO2 Sodium Potassium Chloride Carbon Dioxide BUN Creatinine Glucose POC Glucose 210 H 256 H Lactic Acid Calcium Magnesium AST Alkaline Phosphatase Total Creatine Kinase CK-MB (CK-2) Troponin T C-Reactive Protein Total Protein Albumin Cholesterol LDL Cholesterol Direct HDL Cholesterol Free T4 Urine WBC (Auto) Urine Creatinine Urine Total Protein Crossmatch 09/11/18 09/12/18 09/12/18 23:59 05:07 05:07 WBC RBC 2.89 L Hgb 7.9 L Hct 23.9 L MCV 83 L MCH 27 L MCHC RDW 20.1 H Lymph % (Auto) [place] % (Auto) 7.8 H Eos % (Auto) Lymph # [place] # 0.9 H Eos # Seg Neutrophils % 70.2 H Seg Neuts % (Manual) Lymphocytes % (Manual) Seg Neutrophils # Seg Neutrophils # Man Lymphocytes # (Manual) Eosinophils # (Manual) PT INR APTT D-Dimer Heparin Anti-Xa Level POC ABG pH POC ABG pCO2 POC ABG pO2 Sodium 149 H D Potassium 3.5 L Chloride 110.6 H Carbon Dioxide BUN 32 H Creatinine Glucose 222 H POC Glucose 267 H Lactic Acid Calcium 8.2 L Magnesium AST Alkaline Phosphatase Total Creatine Kinase CK-MB (CK-2) Troponin T C-Reactive Protein Total Protein Albumin Cholesterol LDL Cholesterol Direct HDL Cholesterol Free T4 Urine WBC (Auto) Urine Creatinine Urine Total Protein Crossmatch 09/12/18 09/12/18 09/12/18 05:36 07:22 11:18 WBC RBC Hgb Hct MCV MCH MCHC RDW Lymph % (Auto) [place] % (Auto) Eos % (Auto) Lymph # [place] # Eos # Seg Neutrophils % Seg Neuts % (Manual) Lymphocytes % (Manual) Seg Neutrophils # Seg Neutrophils # Man Lymphocytes # (Manual) Eosinophils # (Manual) PT INR APTT D-Dimer Heparin Anti-Xa Level POC ABG pH POC ABG pCO2 POC ABG pO2 Sodium Potassium Chloride Carbon Dioxide BUN Creatinine Glucose POC Glucose 251 H 210 H 202 H Lactic Acid Calcium Magnesium AST Alkaline Phosphatase Total Creatine Kinase CK-MB (CK-2) Troponin T C-Reactive Protein Total Protein Albumin Cholesterol LDL Cholesterol Direct HDL Cholesterol Free T4 Urine WBC (Auto) Urine Creatinine Urine Total Protein Crossmatch
[2018-09-12] MEDS: LANTUS SUB-Q SCH (22:21)
[2018-09-12] MEDS: LOVENOX SUB-Q SCH (22:21)
[2018-09-13] MEDS: HumaLOG SUB-Q SCH ×6 (02:22→22:31)
[2018-09-13] MEDS: APRESOLINE PO SCH ×3 (05:51→22:30)
[2018-09-13 08:18] LABS: BUN/Creatinine Ratio 33; Blood Urea Nitrogen 26 mg/dL (9-20); Hemolysis Index 0
[2018-09-13 08:29] LABS: Basophils % (Auto) 0.4 % (0.0-1.8); Eosinophils # (Auto) 0.7 K/mm3 (0.0-0.4); Eosinophils % (Auto) 7.6 % (0.0-4.3); Hematocrit 24.9 % (35.5-45.6); Hemoglobin 8.2 gm/dl (11.8-15.2); Lymphocytes # (Auto) 1.9 K/mm3 (1.2-5.4); Lymphocytes % (Auto) 21.6 % (13.4-35.0); Mean Corpuscular HGB Conc 33 % (32-34); Mean Corpuscular Volume 83 fl (84-94); Monocytes # (Auto) 0.8 K/mm3 (0.0-0.8); Monocytes % (Auto) 9.6 % (0.0-7.3); Platelet Count 300 K/mm3 (140-440)
[2018-09-13 09:21] LABS: Red Cell Distribution Width 21.2 % (13.2-15.2)
[2018-09-13] MEDS ORDERED: XYLOCAINE TOPICAL 4% TP ONE (10:32)
--- NOTE | 2018-09-13 10:58 | Progress Note ---
Subjective Date of service: 09/13/18 Principal diagnosis: Acute hypoxemic resp failure; S/P cardiac arrest; Seizures; DM II; H/O CVA Interval history: reviewed labs and other notes on the patient glucose noted no evidence of seizures continue monitor closely Objective - Vital Sign Vital Signs - 12hr 09/12/18 09/13/18 09/13/18 23:48 04:33 08:00 Temperature 98.1 F 98.2 F Pulse Rate 84 84 Respiratory 18 18 Rate Blood Pressure 139/55 128/54 O2 Sat by Pulse 100 99 Oximetry O2 Sat by Pulse 100 Oximetry [ Assessment] 09/13/18 09/13/18 08:14 08:22 Temperature 99.1 F Pulse Rate 85 Respiratory 18 Rate Blood Pressure 170/53 O2 Sat by Pulse 100 100 Oximetry O2 Sat by Pulse Oximetry [ Assessment] - Laboratory Findings CBC and BMP: 09/13/18 07:06 09/13/18 07:06 Abnormal Lab Findings: Abnormal Labs 08/12/18 08/12/18 08/12/18 21:44 21:44 21:44 WBC 15.5 H RBC 3.12 L Hgb 8.8 L Hct 28.9 L MCV MCH MCHC 31 L RDW 19.5 H Lymph % (Auto) [place] % (Auto) Eos % (Auto) Lymph # [place] # Eos # Seg Neutrophils % Seg Neuts % (Manual) Lymphocytes % (Manual) 48.0 H Seg Neutrophils # Seg Neutrophils # Man Lymphocytes # (Manual) 7.4 H Eosinophils # (Manual) PT 17.8 H INR 1.37 H APTT D-Dimer Heparin Anti-Xa Level POC ABG pH POC ABG pCO2 POC ABG pO2 Sodium 159 H Potassium Chloride 118.5 H Carbon Dioxide BUN 34 H Creatinine Glucose 161 H POC Glucose Lactic Acid Calcium Magnesium AST Alkaline Phosphatase Total Creatine Kinase CK-MB (CK-2) Troponin T 0.105 H* C-Reactive Protein Total Protein Albumin Cholesterol LDL Cholesterol Direct HDL Cholesterol Free T4 Urine WBC (Auto) Urine Creatinine Urine Total Protein Crossmatch 08/13/18 08/13/18 08/13/18 00:32 00:47 00:47 WBC RBC Hgb 9.2 L Hct 29.6 L MCV MCH MCHC RDW Lymph % (Auto) [place] % (Auto) Eos % (Auto) Lymph # [place] # Eos # Seg Neutrophils % Seg Neuts % (Manual) Lymphocytes % (Manual) Seg Neutrophils # Seg Neutrophils # Man Lymphocytes # (Manual) Eosinophils # (Manual) PT 16.5 H INR 1.25 H APTT 37.3 H D-Dimer Heparin Anti-Xa Level POC ABG pH POC ABG pCO2 POC ABG pO2 Sodium Potassium Chloride Carbon Dioxide BUN Creatinine Glucose POC Glucose Lactic Acid Calcium Magnesium AST Alkaline Phosphatase Total Creatine Kinase 211 H CK-MB (CK-2) 7.7 H Troponin T 0.169 H* D C-Reactive Protein Total Protein Albumin Cholesterol 46 L LDL Cholesterol Direct 17 L HDL Cholesterol 6 L Free T4 Urine WBC (Auto) Urine Creatinine Urine Total Protein Crossmatch 08/13/18 08/13/18 08/13/18 00:50 02:25 05:34 WBC RBC Hgb Hct MCV MCH MCHC RDW Lymph % (Auto) [place] % (Auto) Eos % (Auto) Lymph # [place] # Eos # Seg Neutrophils % Seg Neuts % (Manual) Lymphocytes % (Manual) Seg Neutrophils # Seg Neutrophils # Man Lymphocytes # (Manual) Eosinophils # (Manual) PT INR APTT D-Dimer Heparin Anti-Xa Level POC ABG pH 7.503 H POC ABG pCO2 POC ABG pO2 253 H Sodium Potassium Chloride Carbon Dioxide BUN Creatinine Glucose POC Glucose Lactic Acid Calcium Magnesium AST Alkaline Phosphatase Total Creatine Kinase 311 H CK-MB (CK-2) 10.4 H Troponin T 0.283 H* D C-Reactive Protein Total Protein Albumin Cholesterol LDL Cholesterol Direct HDL Cholesterol Free T4 Urine WBC (Auto) > 182.0 H Urine Creatinine Urine Total Protein Crossmatch 08/13/18 08/13/18 08/13/18 06:35 10:10 10:10 WBC RBC Hgb Hct MCV MCH MCHC RDW Lymph % (Auto) [place] % (Auto) Eos % (Auto) Lymph # [place] # Eos # Seg Neutrophils % Seg Neuts % (Manual) Lymphocytes % (Manual) Seg Neutrophils # Seg Neutrophils # Man Lymphocytes # (Manual) Eosinophils # (Manual) PT INR APTT D-Dimer Heparin Anti-Xa Level POC ABG pH 7.554 H POC ABG pCO2 33.5 L POC ABG pO2 220 H Sodium 158 H Potassium Chloride 117.1 H Carbon Dioxide BUN 53 H Creatinine 2.0 H Glucose 247 H POC Glucose Lactic Acid Calcium 8.2 L Magnesium AST Alkaline Phosphatase Total Creatine Kinase 309 H CK-MB (CK-2) 4.1 H Troponin T 0.470 H* D C-Reactive Protein Total Protein Albumin Cholesterol LDL Cholesterol Direct HDL Cholesterol Free T4 Urine WBC (Auto) Urine Creatinine Urine Total Protein Crossmatch 08/13/18 08/13/18 08/13/18 12:53 12:53 17:55 WBC RBC Hgb Hct MCV MCH MCHC RDW Lymph % (Auto) [place] % (Auto) Eos % (Auto) Lymph # [place] # Eos # Seg Neutrophils % Seg Neuts % (Manual) Lymphocytes % (Manual) Seg Neutrophils # Seg Neutrophils # Man Lymphocytes # (Manual) Eosinophils # (Manual) PT INR APTT D-Dimer Heparin Anti-Xa Level POC ABG pH POC ABG pCO2 POC ABG pO2 Sodium Potassium Chloride Carbon Dioxide BUN Creatinine Glucose POC Glucose 308 H Lactic Acid 2.80 H* Calcium Magnesium 2.50 H AST Alkaline Phosphatase Total Creatine Kinase CK-MB (CK-2) Troponin T C-Reactive Protein 16.90 H Total Protein Albumin Cholesterol LDL Cholesterol Direct HDL Cholesterol Free T4 Urine WBC (Auto) Urine Creatinine Urine Total Protein Crossmatch 08/13/18 08/13/18 08/13/18 20:07 21:16 23:17 WBC RBC Hgb Hct MCV MCH MCHC RDW Lymph % (Auto) [place] % (Auto) Eos % (Auto) Lymph # [place] # Eos # Seg Neutrophils % Seg Neuts % (Manual) Lymphocytes % (Manual) Seg Neutrophils # Seg Neutrophils # Man Lymphocytes # (Manual) Eosinophils # (Manual) PT INR APTT D-Dimer 2742.50 H Heparin Anti-Xa Level POC ABG pH 7.483 H POC ABG pCO2 30.8 L POC ABG pO2 150 H Sodium Potassium Chloride Carbon Dioxide BUN Creatinine Glucose POC Glucose 245 H Lactic Acid Calcium Magnesium AST Alkaline Phosphatase Total Creatine Kinase CK-MB (CK-2) Troponin T C-Reactive Protein Total Protein Albumin Cholesterol LDL Cholesterol Direct HDL Cholesterol Free T4 Urine WBC (Auto) Urine Creatinine Urine Total Protein Crossmatch 08/14/18 08/14/18 08/14/18 04:03 04:03 04:56 WBC 18.2 H RBC 2.62 L Hgb 7.3 L Hct 24.5 L MCV MCH MCHC RDW 18.9 H Lymph % (Auto) [place] % (Auto) Eos % (Auto) Lymph # [place] # 1.2 H Eos # Seg Neutrophils % 79.4 H Seg Neuts % (Manual) Lymphocytes % (Manual) Seg Neutrophils # 14.5 H Seg Neutrophils # Man Lymphocytes # (Manual) Eosinophils # (Manual) PT INR APTT D-Dimer Heparin Anti-Xa Level POC ABG pH POC ABG pCO2 33.5 L POC ABG pO2 153 H Sodium 152 H Potassium 3.4 L Chloride 113.8 H Carbon Dioxide BUN 72 H Creatinine 2.7 H Glucose 239 H POC Glucose Lactic Acid Calcium 7.6 L Magnesium AST 50 H Alkaline Phosphatase 219 H Total Creatine Kinase CK-MB (CK-2) Troponin T 0.409 H* C-Reactive Protein Total Protein 6.2 L Albumin 1.9 L Cholesterol LDL Cholesterol Direct HDL Cholesterol Free T4 Urine WBC (Auto) Urine Creatinine Urine Total Protein Crossmatch 08/14/18 08/14/18 08/14/18 05:18 13:38 15:35 WBC RBC Hgb Hct MCV MCH MCHC RDW Lymph % (Auto) [place] % (Auto) Eos % (Auto) Lymph # [place] # Eos # Seg Neutrophils % Seg Neuts % (Manual) Lymphocytes % (Manual) Seg Neutrophils # Seg Neutrophils # Man Lymphocytes # (Manual) Eosinophils # (Manual) PT INR APTT D-Dimer Heparin Anti-Xa Level POC ABG pH POC ABG pCO2 POC ABG pO2 Sodium 150 H Potassium 3.2 L Chloride 114.5 H Carbon Dioxide BUN 69 H Creatinine 2.3 H Glucose 247 H POC Glucose 242 H 296 H Lactic Acid Calcium 7.2 L Magnesium AST Alkaline Phosphatase Total Creatine Kinase CK-MB (CK-2) Troponin T C-Reactive Protein Total Protein Albumin Cholesterol LDL Cholesterol Direct HDL Cholesterol Free T4 Urine WBC (Auto) Urine Creatinine Urine Total Protein Crossmatch 08/14/18 08/14/18 08/14/18 17:01 17:20 23:47 WBC RBC Hgb Hct MCV MCH MCHC RDW Lymph % (Auto) [place] % (Auto) Eos % (Auto) Lymph # [place] # Eos # Seg Neutrophils % Seg Neuts % (Manual) Lymphocytes % (Manual) Seg Neutrophils # Seg Neutrophils # Man Lymphocytes # (Manual) Eosinophils # (Manual) PT INR APTT D-Dimer Heparin Anti-Xa Level POC ABG pH POC ABG pCO2 POC ABG pO2 Sodium Potassium Chloride Carbon Dioxide BUN Creatinine Glucose POC Glucose 261 H 280 H Lactic Acid Calcium Magnesium AST Alkaline Phosphatase Total Creatine Kinase CK-MB (CK-2) Troponin T C-Reactive Protein Total Protein Albumin Cholesterol LDL Cholesterol Direct HDL Cholesterol Free T4 Urine WBC (Auto) Urine Creatinine 60.9 H Urine Total Protein 64 H Crossmatch 08/15/18 08/15/18 08/15/18 04:05 04:05 04:05 WBC RBC Hgb 6.3 L Hct 19.7 L* MCV MCH MCHC RDW Lymph % (Auto) [place] % (Auto) Eos % (Auto) Lymph # [place] # Eos # Seg Neutrophils % Seg Neuts % (Manual) Lymphocytes % (Manual) Seg Neutrophils # Seg Neutrophils # Man Lymphocytes # (Manual) Eosinophils # (Manual) PT INR APTT D-Dimer Heparin Anti-Xa Level 0.17 L POC ABG pH POC ABG pCO2 POC ABG pO2 Sodium 146 H Potassium 3.0 L Chloride 110.6 H Carbon Dioxide BUN 64 H Creatinine 2.2 H Glucose 231 H POC Glucose Lactic Acid Calcium 7.1 L Magnesium AST Alkaline Phosphatase Total Creatine Kinase CK-MB (CK-2) Troponin T C-Reactive Protein Total Protein Albumin Cholesterol LDL Cholesterol Direct HDL Cholesterol Free T4 Urine WBC (Auto) Urine Creatinine Urine Total Protein Crossmatch 08/15/18 08/15/18 08/15/18 05:21 05:26 06:35 WBC RBC Hgb Hct MCV MCH MCHC RDW Lymph % (Auto) [place] % (Auto) Eos % (Auto) Lymph # [place] # Eos # Seg Neutrophils % Seg Neuts % (Manual) Lymphocytes % (Manual) Seg Neutrophils # Seg Neutrophils # Man Lymphocytes # (Manual) Eosinophils # (Manual) PT INR APTT 79.0 H* D-Dimer Heparin Anti-Xa Level POC ABG pH 7.494 H POC ABG pCO2 POC ABG pO2 155 H Sodium Potassium Chloride Carbon Dioxide BUN Creatinine Glucose POC Glucose 271 H Lactic Acid Calcium Magnesium AST Alkaline Phosphatase Total Creatine Kinase CK-MB (CK-2) Troponin T C-Reactive Protein Total Protein Albumin Cholesterol LDL Cholesterol Direct HDL Cholesterol Free T4 Urine WBC (Auto) Urine Creatinine Urine Total Protein Crossmatch 08/15/18 08/15/18 08/15/18 12:10 15:31 17:27 WBC RBC Hgb Hct MCV MCH MCHC RDW Lymph % (Auto) [place] % (Auto) Eos % (Auto) Lymph # [place] # Eos # Seg Neutrophils % Seg Neuts % (Manual) Lymphocytes % (Manual) Seg Neutrophils # Seg Neutrophils # Man Lymphocytes # (Manual) Eosinophils # (Manual) PT INR APTT D-Dimer Heparin Anti-Xa Level POC ABG pH POC ABG pCO2 POC ABG pO2 Sodium Potassium Chloride Carbon Dioxide BUN Creatinine Glucose POC Glucose 301 H 287 H Lactic Acid Calcium Magnesium AST Alkaline Phosphatase Total Creatine Kinase CK-MB (CK-2) Troponin T C-Reactive Protein Total Protein Albumin Cholesterol LDL Cholesterol Direct HDL Cholesterol Free T4 Urine WBC (Auto) Urine Creatinine Urine Total Protein Crossmatch See Detail 08/15/18 08/15/18 08/16/18 21:41 23:45 04:13 WBC RBC Hgb Hct MCV MCH MCHC RDW Lymph % (Auto) [place] % (Auto) Eos % (Auto) Lymph # [place] # Eos # Seg Neutrophils % Seg Neuts % (Manual) Lymphocytes % (Manual) Seg Neutrophils # Seg Neutrophils # Man Lymphocytes # (Manual) Eosinophils # (Manual) PT INR APTT D-Dimer Heparin Anti-Xa Level 0.19 L POC ABG pH POC ABG pCO2 32.1 L POC ABG pO2 107 H Sodium Potassium Chloride Carbon Dioxide BUN Creatinine Glucose POC Glucose 163 H Lactic Acid Calcium Magnesium AST Alkaline Phosphatase Total Creatine Kinase CK-MB (CK-2) Troponin T C-Reactive Protein Total Protein Albumin Cholesterol LDL Cholesterol Direct HDL Cholesterol Free T4 Urine WBC (Auto) Urine Creatinine Urine Total Protein Crossmatch 08/16/18 08/16/18 08/16/18 04:50 05:28 11:30 WBC RBC 2.67 L Hgb 8.1 L Hct 23.4 L MCV MCH MCHC 35 H RDW 18.3 H Lymph % (Auto) [place] % (Auto) Eos % (Auto) Lymph # [place] # Eos # Seg Neutrophils % Seg Neuts % (Manual) Lymphocytes % (Manual) Seg Neutrophils # Seg Neutrophils # Man Lymphocytes # (Manual) Eosinophils # (Manual) PT INR APTT D-Dimer Heparin Anti-Xa Level 0.19 L POC ABG pH POC ABG pCO2 POC ABG pO2 Sodium Potassium Chloride Carbon Dioxide BUN Creatinine Glucose POC Glucose 141 H Lactic Acid Calcium Magnesium AST Alkaline Phosphatase Total Creatine Kinase CK-MB (CK-2) Troponin T C-Reactive Protein Total Protein Albumin Cholesterol LDL Cholesterol Direct HDL Cholesterol Free T4 Urine WBC (Auto) Urine Creatinine Urine Total Protein Crossmatch 08/16/18 08/16/18 08/16/18 11:30 12:00 12:01 WBC RBC Hgb Hct MCV MCH MCHC RDW Lymph % (Auto) [place] % (Auto) Eos % (Auto) Lymph # [place] # Eos # Seg Neutrophils % Seg Neuts % (Manual) Lymphocytes % (Manual) Seg Neutrophils # Seg Neutrophils # Man Lymphocytes # (Manual) Eosinophils # (Manual) PT INR APTT D-Dimer Heparin Anti-Xa Level 0.15 L POC ABG pH POC ABG pCO2 POC ABG pO2 Sodium Potassium Chloride 107.8 H Carbon Dioxide 21 L BUN 47 H Creatinine 1.6 H Glucose 221 H POC Glucose 267 H Lactic Acid Calcium 6.9 L Magnesium AST Alkaline Phosphatase Total Creatine Kinase CK-MB (CK-2) Troponin T C-Reactive Protein Total Protein Albumin Cholesterol LDL Cholesterol Direct HDL Cholesterol Free T4 Urine WBC (Auto) Urine Creatinine Urine Total Protein Crossmatch 08/16/18 08/16/18 08/16/18 17:23 20:01 23:13 WBC RBC Hgb Hct MCV MCH MCHC RDW Lymph % (Auto) [place] % (Auto) Eos % (Auto) Lymph # [place] # Eos # Seg Neutrophils % Seg Neuts % (Manual) Lymphocytes % (Manual) Seg Neutrophils # Seg Neutrophils # Man Lymphocytes # (Manual) Eosinophils # (Manual) PT INR APTT D-Dimer Heparin Anti-Xa Level 0.26 L POC ABG pH POC ABG pCO2 POC ABG pO2 Sodium Potassium Chloride Carbon Dioxide BUN Creatinine Glucose POC Glucose 245 H 256 H Lactic Acid Calcium Magnesium AST Alkaline Phosphatase Total Creatine Kinase CK-MB (CK-2) Troponin T C-Reactive Protein Total Protein Albumin Cholesterol LDL Cholesterol Direct HDL Cholesterol Free T4 Urine WBC (Auto) Urine Creatinine Urine Total Protein Crossmatch 08/17/18 08/17/18 08/17/18 04:29 04:55 05:34 WBC RBC Hgb 8.2 L Hct 24.3 L MCV MCH MCHC RDW Lymph % (Auto) [place] % (Auto) Eos % (Auto) Lymph # [place] # Eos # Seg Neutrophils % Seg Neuts % (Manual) Lymphocytes % (Manual) Seg Neutrophils # Seg Neutrophils # Man Lymphocytes # (Manual) Eosinophils # (Manual) PT INR APTT D-Dimer Heparin Anti-Xa Level POC ABG pH POC ABG pCO2 32.4 L POC ABG pO2 108 H Sodium Potassium Chloride Carbon Dioxide BUN Creatinine Glucose POC Glucose 268 H Lactic Acid Calcium Magnesium AST Alkaline Phosphatase Total Creatine Kinase CK-MB (CK-2) Troponin T C-Reactive Protein Total Protein Albumin Cholesterol LDL Cholesterol Direct HDL Cholesterol Free T4 Urine WBC (Auto) Urine Creatinine Urine Total Protein Crossmatch 08/17/18 08/17/18 08/17/18 11:54 13:44 17:24 WBC RBC Hgb Hct MCV MCH MCHC RDW Lymph % (Auto) [place] % (Auto) Eos % (Auto) Lymph # [place] # Eos # Seg Neutrophils % Seg Neuts % (Manual) Lymphocytes % (Manual) Seg Neutrophils # Seg Neutrophils # Man Lymphocytes # (Manual) Eosinophils # (Manual) PT INR APTT D-Dimer Heparin Anti-Xa Level POC ABG pH POC ABG pCO2 32.7 L POC ABG pO2 142 H Sodium Potassium Chloride Carbon Dioxide BUN Creatinine Glucose POC Glucose 295 H 283 H Lactic Acid Calcium Magnesium AST Alkaline Phosphatase Total Creatine Kinase CK-MB (CK-2) Troponin T C-Reactive Protein Total Protein Albumin Cholesterol LDL Cholesterol Direct HDL Cholesterol Free T4 Urine WBC (Auto) Urine Creatinine Urine Total Protein Crossmatch 08/18/18 08/18/18 08/18/18 00:05 00:59 04:15 WBC RBC Hgb Hct MCV MCH MCHC RDW Lymph % (Auto) [place] % (Auto) Eos % (Auto) Lymph # [place] # Eos # Seg Neutrophils % Seg Neuts % (Manual) Lymphocytes % (Manual) Seg Neutrophils # Seg Neutrophils # Man Lymphocytes # (Manual) Eosinophils # (Manual) PT INR APTT D-Dimer Heparin Anti-Xa Level POC ABG pH POC ABG pCO2 POC ABG pO2 115 H Sodium Potassium Chloride Carbon Dioxide BUN Creatinine Glucose POC Glucose 247 H 251 H Lactic Acid Calcium Magnesium AST Alkaline Phosphatase Total Creatine Kinase CK-MB (CK-2) Troponin T C-Reactive Protein Total Protein Albumin Cholesterol LDL Cholesterol Direct HDL Cholesterol Free T4 Urine WBC (Auto) Urine Creatinine Urine Total Protein Crossmatch 08/18/18 08/18/18 08/18/18 05:02 12:20 17:51 WBC RBC Hgb Hct MCV MCH MCHC RDW Lymph % (Auto) [place] % (Auto) Eos % (Auto) Lymph # [place] # Eos # Seg Neutrophils % Seg Neuts % (Manual) Lymphocytes % (Manual) Seg Neutrophils # Seg Neutrophils # Man Lymphocytes # (Manual) Eosinophils # (Manual) PT INR APTT D-Dimer Heparin Anti-Xa Level POC ABG pH POC ABG pCO2 POC ABG pO2 Sodium Potassium Chloride Carbon Dioxide BUN Creatinine Glucose POC Glucose 282 H 209 H 261 H Lactic Acid Calcium Magnesium AST Alkaline Phosphatase Total Creatine Kinase CK-MB (CK-2) Troponin T C-Reactive Protein Total Protein Albumin Cholesterol LDL Cholesterol Direct HDL Cholesterol Free T4 Urine WBC (Auto) Urine Creatinine Urine Total Protein Crossmatch 08/18/18 08/19/18 08/19/18 23:30 04:54 05:16 WBC RBC 2.62 L Hgb 7.5 L Hct 23.1 L MCV MCH MCHC RDW 18.1 H Lymph % (Auto) [place] % (Auto) Eos % (Auto) Lymph # [place] # Eos # Seg Neutrophils % Seg Neuts % (Manual) Lymphocytes % (Manual) Seg Neutrophils # Seg Neutrophils # Man Lymphocytes # (Manual) Eosinophils # (Manual) PT INR APTT D-Dimer Heparin Anti-Xa Level POC ABG pH POC ABG pCO2 POC ABG pO2 58 L Sodium Potassium Chloride Carbon Dioxide BUN Creatinine Glucose POC Glucose 231 H Lactic Acid Calcium Magnesium AST Alkaline Phosphatase Total Creatine Kinase CK-MB (CK-2) Troponin T C-Reactive Protein Total Protein Albumin Cholesterol LDL Cholesterol Direct HDL Cholesterol Free T4 Urine WBC (Auto) Urine Creatinine Urine Total Protein Crossmatch 08/19/18 08/19/18 08/19/18 05:16 05:40 11:56 WBC RBC Hgb Hct MCV MCH MCHC RDW Lymph % (Auto) [place] % (Auto) Eos % (Auto) Lymph # [place] # Eos # Seg Neutrophils % Seg Neuts % (Manual) Lymphocytes % (Manual) Seg Neutrophils # Seg Neutrophils # Man Lymphocytes # (Manual) Eosinophils # (Manual) PT INR APTT D-Dimer Heparin Anti-Xa Level POC ABG pH POC ABG pCO2 POC ABG pO2 Sodium 152 H D Potassium Chloride 118.7 H Carbon Dioxide BUN 38 H Creatinine Glucose 220 H POC Glucose 227 H 213 H Lactic Acid Calcium 8.1 L D Magnesium AST Alkaline Phosphatase Total Creatine Kinase CK-MB (CK-2) Troponin T C-Reactive Protein Total Protein Albumin Cholesterol LDL Cholesterol Direct HDL Cholesterol Free T4 Urine WBC (Auto) Urine Creatinine Urine Total Protein Crossmatch 08/19/18 08/19/18 08/20/18 18:37 23:32 04:38 WBC RBC Hgb Hct MCV MCH MCHC RDW Lymph % (Auto) [place] % (Auto) Eos % (Auto) Lymph # [place] # Eos # Seg Neutrophils % Seg Neuts % (Manual) Lymphocytes % (Manual) Seg Neutrophils # Seg Neutrophils # Man Lymphocytes # (Manual) Eosinophils # (Manual) PT INR APTT D-Dimer Heparin Anti-Xa Level POC ABG pH POC ABG pCO2 POC ABG pO2 140 H Sodium Potassium Chloride Carbon Dioxide BUN Creatinine Glucose POC Glucose 227 H 245 H Lactic Acid Calcium Magnesium AST Alkaline Phosphatase Total Creatine Kinase CK-MB (CK-2) Troponin T C-Reactive Protein Total Protein Albumin Cholesterol LDL Cholesterol Direct HDL Cholesterol Free T4 Urine WBC (Auto) Urine Creatinine Urine Total Protein Crossmatch 08/20/18 08/20/18 08/20/18 05:31 05:37 05:37 WBC RBC 2.60 L Hgb 7.5 L Hct 22.9 L MCV MCH MCHC RDW 18.4 H Lymph % (Auto) [place] % (Auto) Eos % (Auto) Lymph # [place] # Eos # Seg Neutrophils % Seg Neuts % (Manual) Lymphocytes % (Manual) Seg Neutrophils # Seg Neutrophils # Man Lymphocytes # (Manual) Eosinophils # (Manual) PT INR APTT D-Dimer Heparin Anti-Xa Level POC ABG pH POC ABG pCO2 POC ABG pO2 Sodium 150 H Potassium Chloride 115.6 H Carbon Dioxide BUN 38 H Creatinine Glucose 276 H POC Glucose 266 H Lactic Acid Calcium 7.9 L Magnesium AST Alkaline Phosphatase Total Creatine Kinase CK-MB (CK-2) Troponin T C-Reactive Protein Total Protein Albumin Cholesterol LDL Cholesterol Direct HDL Cholesterol Free T4 Urine WBC (Auto) Urine Creatinine Urine Total Protein Crossmatch 08/20/18 08/20/18 08/20/18 14:01 18:20 23:11 WBC RBC Hgb Hct MCV MCH MCHC RDW Lymph % (Auto) [place] % (Auto) Eos % (Auto) Lymph # [place] # Eos # Seg Neutrophils % Seg Neuts % (Manual) Lymphocytes % (Manual) Seg Neutrophils # Seg Neutrophils # Man Lymphocytes # (Manual) Eosinophils # (Manual) PT INR APTT D-Dimer Heparin Anti-Xa Level POC ABG pH POC ABG pCO2 POC ABG pO2 Sodium Potassium Chloride Carbon Dioxide BUN Creatinine Glucose POC Glucose 305 H 271 H 218 H Lactic Acid Calcium Magnesium AST Alkaline Phosphatase Total Creatine Kinase CK-MB (CK-2) Troponin T C-Reactive Protein Total Protein Albumin Cholesterol LDL Cholesterol Direct HDL Cholesterol Free T4 Urine WBC (Auto) Urine Creatinine Urine Total Protein Crossmatch 08/21/18 08/21/18 08/21/18 04:41 04:41 06:20 WBC RBC 2.65 L Hgb 7.6 L Hct 23.3 L MCV MCH MCHC RDW 19.1 H Lymph % (Auto) [place] % (Auto) Eos % (Auto) Lymph # [place] # Eos # Seg Neutrophils % Seg Neuts % (Manual) Lymphocytes % (Manual) Seg Neutrophils # Seg Neutrophils # Man Lymphocytes # (Manual) Eosinophils # (Manual) PT INR APTT D-Dimer Heparin Anti-Xa Level POC ABG pH POC ABG pCO2 POC ABG pO2 Sodium 150 H Potassium Chloride 117.8 H Carbon Dioxide BUN 37 H Creatinine Glucose 233 H POC Glucose 262 H Lactic Acid Calcium 7.9 L Magnesium AST Alkaline Phosphatase Total Creatine Kinase CK-MB (CK-2) Troponin T C-Reactive Protein Total Protein Albumin Cholesterol LDL Cholesterol Direct HDL Cholesterol Free T4 Urine WBC (Auto) Urine Creatinine Urine Total Protein Crossmatch 08/21/18 08/21/18 08/21/18 10:18 12:04 12:36 WBC RBC Hgb Hct MCV MCH MCHC RDW Lymph % (Auto) [place] % (Auto) Eos % (Auto) Lymph # [place] # Eos # Seg Neutrophils % Seg Neuts % (Manual) Lymphocytes % (Manual) Seg Neutrophils # Seg Neutrophils # Man Lymphocytes # (Manual) Eosinophils # (Manual) PT INR APTT D-Dimer Heparin Anti-Xa Level POC ABG pH POC ABG pCO2 POC ABG pO2 Sodium Potassium Chloride Carbon Dioxide BUN Creatinine Glucose POC Glucose 256 H 245 H 255 H Lactic Acid Calcium Magnesium AST Alkaline Phosphatase Total Creatine Kinase CK-MB (CK-2) Troponin T C-Reactive Protein Total Protein Albumin Cholesterol LDL Cholesterol Direct HDL Cholesterol Free T4 Urine WBC (Auto) Urine Creatinine Urine Total Protein Crossmatch 08/21/18 08/21/18 08/22/18 17:36 23:29 05:01 WBC RBC Hgb Hct MCV MCH MCHC RDW Lymph % (Auto) [place] % (Auto) Eos % (Auto) Lymph # [place] # Eos # Seg Neutrophils % Seg Neuts % (Manual) Lymphocytes % (Manual) Seg Neutrophils # Seg Neutrophils # Man Lymphocytes # (Manual) Eosinophils # (Manual) PT INR APTT D-Dimer Heparin Anti-Xa Level POC ABG pH 7.466 H POC ABG pCO2 33.8 L POC ABG pO2 111 H Sodium Potassium Chloride Carbon Dioxide BUN Creatinine Glucose POC Glucose 263 H 268 H Lactic Acid Calcium Magnesium AST Alkaline Phosphatase Total Creatine Kinase CK-MB (CK-2) Troponin T C-Reactive Protein Total Protein Albumin Cholesterol LDL Cholesterol Direct HDL Cholesterol Free T4 Urine WBC (Auto) Urine Creatinine Urine Total Protein Crossmatch 08/22/18 08/22/18 08/22/18 05:05 12:05 12:15 WBC RBC Hgb Hct MCV MCH MCHC RDW Lymph % (Auto) [place] % (Auto) Eos % (Auto) Lymph # [place] # Eos # Seg Neutrophils % Seg Neuts % (Manual) Lymphocytes % (Manual) Seg Neutrophils # Seg Neutrophils # Man Lymphocytes # (Manual) Eosinophils # (Manual) PT INR APTT D-Dimer Heparin Anti-Xa Level POC ABG pH POC ABG pCO2 POC ABG pO2 Sodium 147 H Potassium Chloride 113.2 H Carbon Dioxide BUN 36 H Creatinine Glucose 249 H POC Glucose 256 H 228 H Lactic Acid Calcium 8.2 L Magnesium AST Alkaline Phosphatase Total Creatine Kinase CK-MB (CK-2) Troponin T C-Reactive Protein Total Protein Albumin Cholesterol LDL Cholesterol Direct HDL Cholesterol Free T4 Urine WBC (Auto) Urine Creatinine Urine Total Protein Crossmatch 08/22/18 08/23/18 08/23/18 17:30 00:03 05:05 WBC RBC Hgb Hct MCV MCH MCHC RDW Lymph % (Auto) [place] % (Auto) Eos % (Auto) Lymph # [place] # Eos # Seg Neutrophils % Seg Neuts % (Manual) Lymphocytes % (Manual) Seg Neutrophils # Seg Neutrophils # Man Lymphocytes # (Manual) Eosinophils # (Manual) PT INR APTT D-Dimer Heparin Anti-Xa Level POC ABG pH POC ABG pCO2 POC ABG pO2 Sodium Potassium Chloride Carbon Dioxide BUN Creatinine Glucose POC Glucose 291 H 259 H 247 H Lactic Acid Calcium Magnesium AST Alkaline Phosphatase Total Creatine Kinase CK-MB (CK-2) Troponin T C-Reactive Protein Total Protein Albumin Cholesterol LDL Cholesterol Direct HDL Cholesterol Free T4 Urine WBC (Auto) Urine Creatinine Urine Total Protein Crossmatch 08/23/18 08/23/18 08/23/18 05:14 12:29 17:21 WBC RBC Hgb Hct MCV MCH MCHC RDW Lymph % (Auto) [place] % (Auto) Eos % (Auto) Lymph # [place] # Eos # Seg Neutrophils % Seg Neuts % (Manual) Lymphocytes % (Manual) Seg Neutrophils # Seg Neutrophils # Man Lymphocytes # (Manual) Eosinophils # (Manual) PT INR APTT D-Dimer Heparin Anti-Xa Level POC ABG pH POC ABG pCO2 POC ABG pO2 Sodium Potassium Chloride Carbon Dioxide BUN Creatinine Glucose POC Glucose 208 H 138 H 175 H Lactic Acid Calcium Magnesium AST Alkaline Phosphatase Total Creatine Kinase CK-MB (CK-2) Troponin T C-Reactive Protein Total Protein Albumin Cholesterol LDL Cholesterol Direct HDL Cholesterol Free T4 Urine WBC (Auto) Urine Creatinine Urine Total Protein Crossmatch 08/23/18 08/24/18 08/24/18 23:36 01:00 05:50 WBC RBC 2.92 L 2.90 L Hgb 8.3 L 8.2 L Hct 25.4 L 25.2 L MCV MCH MCHC RDW 18.9 H 18.6 H Lymph % (Auto) [place] % (Auto) 9.2 H Eos % (Auto) Lymph # [place] # Eos # Seg Neutrophils % Seg Neuts % (Manual) Lymphocytes % (Manual) Seg Neutrophils # Seg Neutrophils # Man Lymphocytes # (Manual) Eosinophils # (Manual) PT INR APTT D-Dimer Heparin Anti-Xa Level POC ABG pH POC ABG pCO2 POC ABG pO2 Sodium Potassium Chloride Carbon Dioxide BUN Creatinine Glucose POC Glucose 163 H Lactic Acid Calcium Magnesium AST Alkaline Phosphatase Total Creatine Kinase CK-MB (CK-2) Troponin T C-Reactive Protein Total Protein Albumin Cholesterol LDL Cholesterol Direct HDL Cholesterol Free T4 Urine WBC (Auto) Urine Creatinine Urine Total Protein Crossmatch 08/24/18 08/24/18 08/24/18 05:50 12:26 18:37 WBC RBC Hgb Hct MCV MCH MCHC RDW Lymph % (Auto) [place] % (Auto) Eos % (Auto) Lymph # [place] # Eos # Seg Neutrophils % Seg Neuts % (Manual) Lymphocytes % (Manual) Seg Neutrophils # Seg Neutrophils # Man Lymphocytes # (Manual) Eosinophils # (Manual) PT INR APTT D-Dimer Heparin Anti-Xa Level POC ABG pH POC ABG pCO2 POC ABG pO2 Sodium 147 H Potassium Chloride 113.6 H Carbon Dioxide BUN 33 H Creatinine Glucose 210 H POC Glucose 223 H 166 H Lactic Acid Calcium 8.3 L Magnesium AST Alkaline Phosphatase Total Creatine Kinase CK-MB (CK-2) Troponin T C-Reactive Protein Total Protein Albumin Cholesterol LDL Cholesterol Direct HDL Cholesterol Free T4 Urine WBC (Auto) Urine Creatinine Urine Total Protein Crossmatch 08/24/18 08/25/18 08/25/18 23:47 04:55 04:55 WBC RBC 2.94 L Hgb 8.4 L Hct 25.1 L MCV MCH MCHC RDW 18.2 H Lymph % (Auto) [place] % (Auto) Eos % (Auto) Lymph # [place] # Eos # Seg Neutrophils % Seg Neuts % (Manual) Lymphocytes % (Manual) Seg Neutrophils # Seg Neutrophils # Man Lymphocytes # (Manual) Eosinophils # (Manual) PT INR APTT D-Dimer Heparin Anti-Xa Level POC ABG pH POC ABG pCO2 POC ABG pO2 Sodium Potassium Chloride 110.2 H Carbon Dioxide BUN 30 H Creatinine Glucose POC Glucose 126 H Lactic Acid Calcium 8.1 L Magnesium AST Alkaline Phosphatase Total Creatine Kinase CK-MB (CK-2) Troponin T C-Reactive Protein Total Protein Albumin Cholesterol LDL Cholesterol Direct HDL Cholesterol Free T4 Urine WBC (Auto) Urine Creatinine Urine Total Protein Crossmatch 08/25/18 08/26/18 08/26/18 12:40 04:39 04:39 WBC RBC 2.96 L Hgb 8.3 L Hct 25.7 L MCV MCH MCHC RDW 18.2 H Lymph % (Auto) 10.5 L [place] % (Auto) 9.3 H Eos % (Auto) Lymph # 0.8 L [place] # Eos # Seg Neutrophils % 77.0 H Seg Neuts % (Manual) Lymphocytes % (Manual) Seg Neutrophils # Seg Neutrophils # Man Lymphocytes # (Manual) Eosinophils # (Manual) PT INR APTT D-Dimer Heparin Anti-Xa Level POC ABG pH POC ABG pCO2 POC ABG pO2 Sodium 147 H Potassium Chloride 113.5 H Carbon Dioxide BUN 27 H Creatinine 0.7 L Glucose 106 H POC Glucose Lactic Acid Calcium 8.0 L Magnesium AST Alkaline Phosphatase Total Creatine Kinase CK-MB (CK-2) Troponin T C-Reactive Protein Total Protein Albumin Cholesterol LDL Cholesterol Direct HDL Cholesterol Free T4 Urine WBC (Auto) > 182.0 H Urine Creatinine Urine Total Protein Crossmatch 08/26/18 08/26/18 08/26/18 05:27 09:00 09:54 WBC RBC Hgb Hct MCV MCH MCHC RDW Lymph % (Auto) [place] % (Auto) Eos % (Auto) Lymph # [place] # Eos # Seg Neutrophils % Seg Neuts % (Manual) Lymphocytes % (Manual) Seg Neutrophils # Seg Neutrophils # Man Lymphocytes # (Manual) Eosinophils # (Manual) PT INR APTT D-Dimer Heparin Anti-Xa Level POC ABG pH POC ABG pCO2 POC ABG pO2 Sodium Potassium Chloride Carbon Dioxide BUN Creatinine Glucose POC Glucose 120 H 170 H Lactic Acid Calcium Magnesium AST Alkaline Phosphatase Total Creatine Kinase CK-MB (CK-2) Troponin T C-Reactive Protein Total Protein Albumin Cholesterol LDL Cholesterol Direct HDL Cholesterol Free T4 0.51 L Urine WBC (Auto) Urine Creatinine Urine Total Protein Crossmatch 08/26/18 08/26/18 08/27/18 14:52 17:50 06:30 WBC RBC Hgb Hct MCV MCH MCHC RDW Lymph % (Auto) [place] % (Auto) Eos % (Auto) Lymph # [place] # Eos # Seg Neutrophils % Seg Neuts % (Manual) Lymphocytes % (Manual) Seg Neutrophils # Seg Neutrophils # Man Lymphocytes # (Manual) Eosinophils # (Manual) PT INR APTT D-Dimer Heparin Anti-Xa Level POC ABG pH POC ABG pCO2 POC ABG pO2 Sodium 150 H Potassium Chloride 114.8 H Carbon Dioxide BUN 24 H Creatinine 0.7 L Glucose 131 H POC Glucose 166 H 107 H Lactic Acid Calcium 7.8 L Magnesium AST Alkaline Phosphatase Total Creatine Kinase CK-MB (CK-2) Troponin T C-Reactive Protein Total Protein Albumin Cholesterol LDL Cholesterol Direct HDL Cholesterol Free T4 Urine WBC (Auto) Urine Creatinine Urine Total Protein Crossmatch 08/27/18 08/27/18 08/27/18 08:22 14:20 16:06 WBC RBC Hgb Hct MCV MCH MCHC RDW Lymph % (Auto) [place] % (Auto) Eos % (Auto) Lymph # [place] # Eos # Seg Neutrophils % Seg Neuts % (Manual) Lymphocytes % (Manual) Seg Neutrophils # Seg Neutrophils # Man Lymphocytes # (Manual) Eosinophils # (Manual) PT INR APTT D-Dimer Heparin Anti-Xa Level POC ABG pH POC ABG pCO2 POC ABG pO2 Sodium Potassium Chloride Carbon Dioxide BUN Creatinine Glucose POC Glucose 112 H 151 H 158 H Lactic Acid Calcium Magnesium AST Alkaline Phosphatase Total Creatine Kinase CK-MB (CK-2) Troponin T C-Reactive Protein Total Protein Albumin Cholesterol LDL Cholesterol Direct HDL Cholesterol Free T4 Urine WBC (Auto) Urine Creatinine Urine Total Protein Crossmatch 08/27/18 08/27/18 08/28/18 20:09 21:25 02:03 WBC RBC Hgb Hct MCV MCH MCHC RDW Lymph % (Auto) [place] % (Auto) Eos % (Auto) Lymph # [place] # Eos # Seg Neutrophils % Seg Neuts % (Manual) Lymphocytes % (Manual) Seg Neutrophils # Seg Neutrophils # Man Lymphocytes # (Manual) Eosinophils # (Manual) PT INR APTT D-Dimer Heparin Anti-Xa Level POC ABG pH POC ABG pCO2 POC ABG pO2 130 H Sodium Potassium Chloride Carbon Dioxide BUN Creatinine Glucose POC Glucose 226 H 250 H Lactic Acid Calcium Magnesium AST Alkaline Phosphatase Total Creatine Kinase CK-MB (CK-2) Troponin T C-Reactive Protein Total Protein Albumin Cholesterol LDL Cholesterol Direct HDL Cholesterol Free T4 Urine WBC (Auto) Urine Creatinine Urine Total Protein Crossmatch 08/28/18 08/28/18 08/28/18 05:56 07:15 13:17 WBC RBC Hgb Hct MCV MCH MCHC RDW Lymph % (Auto) [place] % (Auto) Eos % (Auto) Lymph # [place] # Eos # Seg Neutrophils % Seg Neuts % (Manual) Lymphocytes % (Manual) Seg Neutrophils # Seg Neutrophils # Man Lymphocytes # (Manual) Eosinophils # (Manual) PT INR APTT D-Dimer Heparin Anti-Xa Level POC ABG pH POC ABG pCO2 POC ABG pO2 Sodium Potassium Chloride Carbon Dioxide BUN Creatinine Glucose 198 H POC Glucose 221 H 188 H Lactic Acid Calcium 7.7 L Magnesium AST Alkaline Phosphatase Total Creatine Kinase CK-MB (CK-2) Troponin T C-Reactive Protein Total Protein Albumin Cholesterol LDL Cholesterol Direct HDL Cholesterol Free T4 Urine WBC (Auto) Urine Creatinine Urine Total Protein Crossmatch 08/28/18 08/28/18 08/28/18 15:53 18:12 22:35 WBC RBC Hgb Hct MCV MCH MCHC RDW Lymph % (Auto) [place] % (Auto) Eos % (Auto) Lymph # [place] # Eos # Seg Neutrophils % Seg Neuts % (Manual) Lymphocytes % (Manual) Seg Neutrophils # Seg Neutrophils # Man Lymphocytes # (Manual) Eosinophils # (Manual) PT INR APTT D-Dimer Heparin Anti-Xa Level POC ABG pH 7.457 H POC ABG pCO2 POC ABG pO2 Sodium Potassium Chloride Carbon Dioxide BUN Creatinine Glucose POC Glucose 197 H 225 H Lactic Acid Calcium Magnesium AST Alkaline Phosphatase Total Creatine Kinase CK-MB (CK-2) Troponin T C-Reactive Protein Total Protein Albumin Cholesterol LDL Cholesterol Direct HDL Cholesterol Free T4 Urine WBC (Auto) Urine Creatinine Urine Total Protein Crossmatch 08/29/18 08/29/18 08/29/18 03:04 10:47 14:25 WBC RBC Hgb Hct MCV MCH MCHC RDW Lymph % (Auto) [place] % (Auto) Eos % (Auto) Lymph # [place] # Eos # Seg Neutrophils % Seg Neuts % (Manual) Lymphocytes % (Manual) Seg Neutrophils # Seg Neutrophils # Man Lymphocytes # (Manual) Eosinophils # (Manual) PT INR APTT D-Dimer Heparin Anti-Xa Level POC ABG pH POC ABG pCO2 POC ABG pO2 Sodium Potassium Chloride Carbon Dioxide BUN Creatinine Glucose POC Glucose 223 H 371 H 266 H Lactic Acid Calcium Magnesium AST Alkaline Phosphatase Total Creatine Kinase CK-MB (CK-2) Troponin T C-Reactive Protein Total Protein Albumin Cholesterol LDL Cholesterol Direct HDL Cholesterol Free T4 Urine WBC (Auto) Urine Creatinine Urine Total Protein Crossmatch 08/29/18 08/29/18 08/29/18 16:45 17:36 21:33 WBC RBC Hgb Hct MCV MCH MCHC RDW Lymph % (Auto) [place] % (Auto) Eos % (Auto) Lymph # [place] # Eos # Seg Neutrophils % Seg Neuts % (Manual) Lymphocytes % (Manual) Seg Neutrophils # Seg Neutrophils # Man Lymphocytes # (Manual) Eosinophils # (Manual) PT INR APTT D-Dimer Heparin Anti-Xa Level POC ABG pH POC ABG pCO2 POC ABG pO2 118 H Sodium Potassium Chloride Carbon Dioxide BUN Creatinine Glucose POC Glucose 253 H 204 H Lactic Acid Calcium Magnesium AST Alkaline Phosphatase Total Creatine Kinase CK-MB (CK-2) Troponin T C-Reactive Protein Total Protein Albumin Cholesterol LDL Cholesterol Direct HDL Cholesterol Free T4 Urine WBC (Auto) Urine Creatinine Urine Total Protein Crossmatch 08/30/18 08/30/18 08/30/18 01:33 05:27 05:40 WBC RBC 3.12 L Hgb 8.5 L Hct 25.9 L MCV 83 L MCH 27 L MCHC RDW 18.3 H Lymph % (Auto) [place] % (Auto) 7.8 H Eos % (Auto) 8.8 H Lymph # [place] # Eos # 0.6 H Seg Neutrophils % Seg Neuts % (Manual) Lymphocytes % (Manual) Seg Neutrophils # Seg Neutrophils # Man Lymphocytes # (Manual) Eosinophils # (Manual) PT INR APTT D-Dimer Heparin Anti-Xa Level POC ABG pH POC ABG pCO2 POC ABG pO2 Sodium Potassium Chloride Carbon Dioxide BUN Creatinine Glucose POC Glucose 157 H 178 H Lactic Acid Calcium Magnesium AST Alkaline Phosphatase Total Creatine Kinase CK-MB (CK-2) Troponin T C-Reactive Protein Total Protein Albumin Cholesterol LDL Cholesterol Direct HDL Cholesterol Free T4 Urine WBC (Auto) Urine Creatinine Urine Total Protein Crossmatch 08/30/18 08/30/18 08/30/18 05:40 09:28 11:41 WBC RBC Hgb Hct MCV MCH MCHC RDW Lymph % (Auto) [place] % (Auto) Eos % (Auto) Lymph # [place] # Eos # Seg Neutrophils % Seg Neuts % (Manual) Lymphocytes % (Manual) Seg Neutrophils # Seg Neutrophils # Man Lymphocytes # (Manual) Eosinophils # (Manual) PT INR APTT D-Dimer Heparin Anti-Xa Level POC ABG pH POC ABG pCO2 POC ABG pO2 Sodium Potassium Chloride Carbon Dioxide BUN Creatinine 0.7 L Glucose 189 H POC Glucose 216 H 257 H Lactic Acid Calcium 8.2 L Magnesium AST 50 H Alkaline Phosphatase 158 H Total Creatine Kinase CK-MB (CK-2) Troponin T C-Reactive Protein Total Protein Albumin 1.6 L Cholesterol LDL Cholesterol Direct HDL Cholesterol Free T4 Urine WBC (Auto) Urine Creatinine Urine Total Protein Crossmatch 08/30/18 08/30/18 08/30/18 14:34 17:07 21:56 WBC RBC Hgb Hct MCV MCH MCHC RDW Lymph % (Auto) [place] % (Auto) Eos % (Auto) Lymph # [place] # Eos # Seg Neutrophils % Seg Neuts % (Manual) Lymphocytes % (Manual) Seg Neutrophils # Seg Neutrophils # Man Lymphocytes # (Manual) Eosinophils # (Manual) PT INR APTT D-Dimer Heparin Anti-Xa Level POC ABG pH POC ABG pCO2 POC ABG pO2 Sodium Potassium Chloride Carbon Dioxide BUN Creatinine Glucose POC Glucose 263 H 263 H 234 H Lactic Acid Calcium Magnesium AST Alkaline Phosphatase Total Creatine Kinase CK-MB (CK-2) Troponin T C-Reactive Protein Total Protein Albumin Cholesterol LDL Cholesterol Direct HDL Cholesterol Free T4 Urine WBC (Auto) Urine Creatinine Urine Total Protein Crossmatch 08/31/18 08/31/18 08/31/18 02:02 05:29 09:24 WBC RBC Hgb Hct MCV MCH MCHC RDW Lymph % (Auto) [place] % (Auto) Eos % (Auto) Lymph # [place] # Eos # Seg Neutrophils % Seg Neuts % (Manual) Lymphocytes % (Manual) Seg Neutrophils # Seg Neutrophils # Man Lymphocytes # (Manual) Eosinophils # (Manual) PT INR APTT D-Dimer Heparin Anti-Xa Level POC ABG pH POC ABG pCO2 POC ABG pO2 Sodium Potassium Chloride Carbon Dioxide BUN Creatinine Glucose POC Glucose 151 H 156 H 107 H Lactic Acid Calcium Magnesium AST Alkaline Phosphatase Total Creatine Kinase CK-MB (CK-2) Troponin T C-Reactive Protein Total Protein Albumin Cholesterol LDL Cholesterol Direct HDL Cholesterol Free T4 Urine WBC (Auto) Urine Creatinine Urine Total Protein Crossmatch 08/31/18 08/31/18 08/31/18 13:51 17:28 21:40 WBC RBC Hgb Hct MCV MCH MCHC RDW Lymph % (Auto) [place] % (Auto) Eos % (Auto) Lymph # [place] # Eos # Seg Neutrophils % Seg Neuts % (Manual) Lymphocytes % (Manual) Seg Neutrophils # Seg Neutrophils # Man Lymphocytes # (Manual) Eosinophils # (Manual) PT INR APTT D-Dimer Heparin Anti-Xa Level POC ABG pH POC ABG pCO2 POC ABG pO2 Sodium Potassium Chloride Carbon Dioxide BUN Creatinine Glucose POC Glucose 170 H 239 H 209 H Lactic Acid Calcium Magnesium AST Alkaline Phosphatase Total Creatine Kinase CK-MB (CK-2) Troponin T C-Reactive Protein Total Protein Albumin Cholesterol LDL Cholesterol Direct HDL Cholesterol Free T4 Urine WBC (Auto) Urine Creatinine Urine Total Protein Crossmatch 08/31/18 08/31/18 09/01/18 22:25 22:25 01:47 WBC RBC Hgb Hct MCV MCH MCHC RDW Lymph % (Auto) [place] % (Auto) Eos % (Auto) Lymph # [place] # Eos # Seg Neutrophils % Seg Neuts % (Manual) Lymphocytes % (Manual) Seg Neutrophils # Seg Neutrophils # Man Lymphocytes # (Manual) Eosinophils # (Manual) PT INR APTT D-Dimer Heparin Anti-Xa Level POC ABG pH POC ABG pCO2 45.6 H POC ABG pO2 135 H Sodium Potassium Chloride Carbon Dioxide BUN Creatinine Glucose POC Glucose 208 H 223 H Lactic Acid Calcium Magnesium AST Alkaline Phosphatase Total Creatine Kinase CK-MB (CK-2) Troponin T C-Reactive Protein Total Protein Albumin Cholesterol LDL Cholesterol Direct HDL Cholesterol Free T4 Urine WBC (Auto) Urine Creatinine Urine Total Protein Crossmatch 09/01/18 09/01/18 09/01/18 05:18 05:19 05:19 WBC RBC 3.08 L Hgb 8.5 L Hct 25.6 L MCV 83 L MCH MCHC RDW 18.7 H Lymph % (Auto) [place] % (Auto) 7.9 H Eos % (Auto) 6.1 H Lymph # [place] # Eos # Seg Neutrophils % Seg Neuts % (Manual) Lymphocytes % (Manual) Seg Neutrophils # Seg Neutrophils # Man Lymphocytes # (Manual) Eosinophils # (Manual) PT INR APTT D-Dimer Heparin Anti-Xa Level POC ABG pH POC ABG pCO2 POC ABG pO2 Sodium Potassium Chloride 107.9 H Carbon Dioxide BUN 21 H Creatinine 0.7 L Glucose 188 H POC Glucose 236 H Lactic Acid Calcium Magnesium AST Alkaline Phosphatase Total Creatine Kinase CK-MB (CK-2) Troponin T C-Reactive Protein Total Protein Albumin Cholesterol LDL Cholesterol Direct HDL Cholesterol Free T4 Urine WBC (Auto) Urine Creatinine Urine Total Protein Crossmatch 09/01/18 09/01/18 09/01/18 09:29 14:25 18:20 WBC RBC Hgb Hct MCV MCH MCHC RDW Lymph % (Auto) [place] % (Auto) Eos % (Auto) Lymph # [place] # Eos # Seg Neutrophils % Seg Neuts % (Manual) Lymphocytes % (Manual) Seg Neutrophils # Seg Neutrophils # Man Lymphocytes # (Manual) Eosinophils # (Manual) PT INR APTT D-Dimer Heparin Anti-Xa Level POC ABG pH POC ABG pCO2 POC ABG pO2 Sodium Potassium Chloride Carbon Dioxide BUN Creatinine Glucose POC Glucose 231 H 294 H 215 H Lactic Acid Calcium Magnesium AST Alkaline Phosphatase Total Creatine Kinase CK-MB (CK-2) Troponin T C-Reactive Protein Total Protein Albumin Cholesterol LDL Cholesterol Direct HDL Cholesterol Free T4 Urine WBC (Auto) Urine Creatinine Urine Total Protein Crossmatch 09/01/18 09/02/18 09/02/18 21:21 03:28 05:25 WBC RBC Hgb Hct MCV MCH MCHC RDW Lymph % (Auto) [place] % (Auto) Eos % (Auto) Lymph # [place] # Eos # Seg Neutrophils % Seg Neuts % (Manual) Lymphocytes % (Manual) Seg Neutrophils # Seg Neutrophils # Man Lymphocytes # (Manual) Eosinophils # (Manual) PT INR APTT D-Dimer Heparin Anti-Xa Level POC ABG pH POC ABG pCO2 POC ABG pO2 Sodium Potassium Chloride Carbon Dioxide BUN Creatinine Glucose POC Glucose 236 H 194 H 183 H Lactic Acid Calcium Magnesium AST Alkaline Phosphatase Total Creatine Kinase CK-MB (CK-2) Troponin T C-Reactive Protein Total Protein Albumin Cholesterol LDL Cholesterol Direct HDL Cholesterol Free T4 Urine WBC (Auto) Urine Creatinine Urine Total Protein Crossmatch 09/02/18 09/02/18 09/02/18 09:16 15:30 17:20 WBC RBC Hgb Hct MCV MCH MCHC RDW Lymph % (Auto) [place] % (Auto) Eos % (Auto) Lymph # [place] # Eos # Seg Neutrophils % Seg Neuts % (Manual) Lymphocytes % (Manual) Seg Neutrophils # Seg Neutrophils # Man Lymphocytes # (Manual) Eosinophils # (Manual) PT INR APTT D-Dimer Heparin Anti-Xa Level POC ABG pH POC ABG pCO2 POC ABG pO2 Sodium Potassium Chloride Carbon Dioxide BUN Creatinine Glucose POC Glucose 251 H 303 H 316 H Lactic Acid Calcium Magnesium AST Alkaline Phosphatase Total Creatine Kinase CK-MB (CK-2) Troponin T C-Reactive Protein Total Protein Albumin Cholesterol LDL Cholesterol Direct HDL Cholesterol Free T4 Urine WBC (Auto) Urine Creatinine Urine Total Protein Crossmatch 09/02/18 09/03/18 09/03/18 21:25 03:32 05:20 WBC RBC Hgb Hct MCV MCH MCHC RDW Lymph % (Auto) [place] % (Auto) Eos % (Auto) Lymph # [place] # Eos # Seg Neutrophils % Seg Neuts % (Manual) Lymphocytes % (Manual) Seg Neutrophils # Seg Neutrophils # Man Lymphocytes # (Manual) Eosinophils # (Manual) PT INR APTT D-Dimer Heparin Anti-Xa Level POC ABG pH POC ABG pCO2 POC ABG pO2 Sodium Potassium Chloride Carbon Dioxide BUN Creatinine Glucose POC Glucose 242 H 305 H 225 H Lactic Acid Calcium Magnesium AST Alkaline Phosphatase Total Creatine Kinase CK-MB (CK-2) Troponin T C-Reactive Protein Total Protein Albumin Cholesterol LDL Cholesterol Direct HDL Cholesterol Free T4 Urine WBC (Auto) Urine Creatinine Urine Total Protein Crossmatch 09/03/18 09/03/18 09/03/18 07:52 07:52 10:19 WBC RBC 3.29 L Hgb 9.0 L Hct 27.3 L MCV 83 L MCH 27 L MCHC RDW 18.4 H Lymph % (Auto) [place] % (Auto) Eos % (Auto) Lymph # [place] # Eos # Seg Neutrophils % Seg Neuts % (Manual) Lymphocytes % (Manual) Seg Neutrophils # Seg Neutrophils # Man Lymphocytes # (Manual) Eosinophils # (Manual) PT INR APTT D-Dimer Heparin Anti-Xa Level POC ABG pH POC ABG pCO2 POC ABG pO2 Sodium Potassium Chloride Carbon Dioxide BUN 23 H Creatinine Glucose 205 H POC Glucose 228 H Lactic Acid Calcium 7.9 L Magnesium AST Alkaline Phosphatase Total Creatine Kinase CK-MB (CK-2) Troponin T C-Reactive Protein Total Protein Albumin Cholesterol LDL Cholesterol Direct HDL Cholesterol Free T4 Urine WBC (Auto) Urine Creatinine Urine Total Protein Crossmatch 09/03/18 09/03/18 09/03/18 13:42 17:22 21:33 WBC RBC Hgb Hct MCV MCH MCHC RDW Lymph % (Auto) [place] % (Auto) Eos % (Auto) Lymph # [place] # Eos # Seg Neutrophils % Seg Neuts % (Manual) Lymphocytes % (Manual) Seg Neutrophils # Seg Neutrophils # Man Lymphocytes # (Manual) Eosinophils # (Manual) PT INR APTT D-Dimer Heparin Anti-Xa Level POC ABG pH POC ABG pCO2 POC ABG pO2 Sodium Potassium Chloride Carbon Dioxide BUN Creatinine Glucose POC Glucose 221 H 186 H 179 H Lactic Acid Calcium Magnesium AST Alkaline Phosphatase Total Creatine Kinase CK-MB (CK-2) Troponin T C-Reactive Protein Total Protein Albumin Cholesterol LDL Cholesterol Direct HDL Cholesterol Free T4 Urine WBC (Auto) Urine Creatinine Urine Total Protein Crossmatch 09/04/18 09/04/18 09/04/18 02:07 05:54 11:03 WBC RBC Hgb Hct MCV MCH MCHC RDW Lymph % (Auto) [place] % (Auto) Eos % (Auto) Lymph # [place] # Eos # Seg Neutrophils % Seg Neuts % (Manual) Lymphocytes % (Manual) Seg Neutrophils # Seg Neutrophils # Man Lymphocytes # (Manual) Eosinophils # (Manual) PT INR APTT D-Dimer Heparin Anti-Xa Level POC ABG pH POC ABG pCO2 POC ABG pO2 Sodium Potassium Chloride Carbon Dioxide BUN Creatinine Glucose POC Glucose 174 H 171 H 181 H Lactic Acid Calcium Magnesium AST Alkaline Phosphatase Total Creatine Kinase CK-MB (CK-2) Troponin T C-Reactive Protein Total Protein Albumin Cholesterol LDL Cholesterol Direct HDL Cholesterol Free T4 Urine WBC (Auto) Urine Creatinine Urine Total Protein Crossmatch 09/04/18 09/04/18 09/04/18 14:59 18:24 21:50 WBC RBC Hgb Hct MCV MCH MCHC RDW Lymph % (Auto) [place] % (Auto) Eos % (Auto) Lymph # [place] # Eos # Seg Neutrophils % Seg Neuts % (Manual) Lymphocytes % (Manual) Seg Neutrophils # Seg Neutrophils # Man Lymphocytes # (Manual) Eosinophils # (Manual) PT INR APTT D-Dimer Heparin Anti-Xa Level POC ABG pH POC ABG pCO2 POC ABG pO2 Sodium Potassium Chloride Carbon Dioxide BUN Creatinine Glucose POC Glucose 204 H 236 H 197 H Lactic Acid Calcium Magnesium AST Alkaline Phosphatase Total Creatine Kinase CK-MB (CK-2) Troponin T C-Reactive Protein Total Protein Albumin Cholesterol LDL Cholesterol Direct HDL Cholesterol Free T4 Urine WBC (Auto) Urine Creatinine Urine Total Protein Crossmatch 09/05/18 09/05/18 09/05/18 01:32 04:52 04:52 WBC RBC 3.16 L Hgb 8.7 L Hct 26.0 L MCV 82 L MCH MCHC RDW 18.9 H Lymph % (Auto) [place] % (Auto) Eos % (Auto) Lymph # [place] # Eos # Seg Neutrophils % Seg Neuts % (Manual) Lymphocytes % (Manual) Seg Neutrophils # Seg Neutrophils # Man Lymphocytes # (Manual) Eosinophils # (Manual) PT INR APTT D-Dimer Heparin Anti-Xa Level POC ABG pH POC ABG pCO2 POC ABG pO2 Sodium Potassium Chloride 107.2 H Carbon Dioxide BUN 23 H Creatinine 0.7 L Glucose 215 H POC Glucose 210 H Lactic Acid Calcium 8.3 L Magnesium AST Alkaline Phosphatase Total Creatine Kinase CK-MB (CK-2) Troponin T C-Reactive Protein Total Protein Albumin Cholesterol LDL Cholesterol Direct HDL Cholesterol Free T4 Urine WBC (Auto) Urine Creatinine Urine Total Protein Crossmatch 09/05/18 09/05/18 09/05/18 05:36 10:26 13:11 WBC RBC Hgb Hct MCV MCH MCHC RDW Lymph % (Auto) [place] % (Auto) Eos % (Auto) Lymph # [place] # Eos # Seg Neutrophils % Seg Neuts % (Manual) Lymphocytes % (Manual) Seg Neutrophils # Seg Neutrophils # Man Lymphocytes # (Manual) Eosinophils # (Manual) PT INR APTT D-Dimer Heparin Anti-Xa Level POC ABG pH POC ABG pCO2 POC ABG pO2 Sodium Potassium Chloride Carbon Dioxide BUN Creatinine Glucose POC Glucose 216 H 206 H 161 H Lactic Acid Calcium Magnesium AST Alkaline Phosphatase Total Creatine Kinase CK-MB (CK-2) Troponin T C-Reactive Protein Total Protein Albumin Cholesterol LDL Cholesterol Direct HDL Cholesterol Free T4 Urine WBC (Auto) Urine Creatinine Urine Total Protein Crossmatch 06/08/19 06/08/19 06/08/19 18:27 18:32 22:05 WBC RBC Hgb Hct MCV MCH MCHC RDW Lymph % (Auto) [place] % (Auto) Eos % (Auto) Lymph # [place] # Eos # Seg Neutrophils % Seg Neuts % (Manual) Lymphocytes % (Manual) Seg Neutrophils # Seg Neutrophils # Man Lymphocytes # (Manual) Eosinophils # (Manual) PT INR APTT D-Dimer Heparin Anti-Xa Level POC ABG pH 7.478 H POC ABG pCO2 POC ABG pO2 138 H Sodium Potassium Chloride Carbon Dioxide BUN Creatinine Glucose POC Glucose 154 H 149 H Lactic Acid Calcium Magnesium AST Alkaline Phosphatase Total Creatine Kinase CK-MB (CK-2) Troponin T C-Reactive Protein Total Protein Albumin Cholesterol LDL Cholesterol Direct HDL Cholesterol Free T4 Urine WBC (Auto) Urine Creatinine Urine Total Protein Crossmatch 09/06/18 09/06/18 09/06/18 04:40 08:30 10:06 WBC RBC Hgb Hct MCV MCH MCHC RDW Lymph % (Auto) [place] % (Auto) Eos % (Auto) Lymph # [place] # Eos # Seg Neutrophils % Seg Neuts % (Manual) Lymphocytes % (Manual) Seg Neutrophils # Seg Neutrophils # Man Lymphocytes # (Manual) Eosinophils # (Manual) PT INR APTT D-Dimer Heparin Anti-Xa Level POC ABG pH POC ABG pCO2 POC ABG pO2 Sodium Potassium Chloride Carbon Dioxide BUN Creatinine Glucose POC Glucose 140 H 188 H 199 H Lactic Acid Calcium Magnesium AST Alkaline Phosphatase Total Creatine Kinase CK-MB (CK-2) Troponin T C-Reactive Protein Total Protein Albumin Cholesterol LDL Cholesterol Direct HDL Cholesterol Free T4 Urine WBC (Auto) Urine Creatinine Urine Total Protein Crossmatch 09/06/18 09/06/18 09/06/18 12:13 14:23 17:11 WBC RBC Hgb Hct MCV MCH MCHC RDW Lymph % (Auto) [place] % (Auto) Eos % (Auto) Lymph # [place] # Eos # Seg Neutrophils % Seg Neuts % (Manual) Lymphocytes % (Manual) Seg Neutrophils # Seg Neutrophils # Man Lymphocytes # (Manual) Eosinophils # (Manual) PT INR APTT D-Dimer Heparin Anti-Xa Level POC ABG pH POC ABG pCO2 POC ABG pO2 Sodium Potassium Chloride Carbon Dioxide BUN Creatinine Glucose POC Glucose 177 H 180 H 216 H Lactic Acid Calcium Magnesium AST Alkaline Phosphatase Total Creatine Kinase CK-MB (CK-2) Troponin T C-Reactive Protein Total Protein Albumin Cholesterol LDL Cholesterol Direct HDL Cholesterol Free T4 Urine WBC (Auto) Urine Creatinine Urine Total Protein Crossmatch 09/06/18 09/07/18 09/07/18 21:47 02:02 04:55 WBC RBC 3.08 L Hgb 8.5 L Hct 25.2 L MCV 82 L MCH MCHC RDW 18.8 H Lymph % (Auto) [place] % (Auto) Eos % (Auto) Lymph # 0.8 L [place] # Eos # Seg Neutrophils % 84.8 H Seg Neuts % (Manual) Lymphocytes % (Manual) Seg Neutrophils # Seg Neutrophils # Man Lymphocytes # (Manual) Eosinophils # (Manual) PT INR APTT D-Dimer Heparin Anti-Xa Level POC ABG pH POC ABG pCO2 POC ABG pO2 Sodium Potassium Chloride Carbon Dioxide BUN Creatinine Glucose POC Glucose 275 H 291 H Lactic Acid Calcium Magnesium AST Alkaline Phosphatase Total Creatine Kinase CK-MB (CK-2) Troponin T C-Reactive Protein Total Protein Albumin Cholesterol LDL Cholesterol Direct HDL Cholesterol Free T4 Urine WBC (Auto) Urine Creatinine Urine Total Protein Crossmatch 09/07/18 09/07/18 09/07/18 04:55 06:02 10:27 WBC RBC Hgb Hct MCV MCH MCHC RDW Lymph % (Auto) [place] % (Auto) Eos % (Auto) Lymph # [place] # Eos # Seg Neutrophils % Seg Neuts % (Manual) Lymphocytes % (Manual) Seg Neutrophils # Seg Neutrophils # Man Lymphocytes # (Manual) Eosinophils # (Manual) PT INR APTT D-Dimer Heparin Anti-Xa Level POC ABG pH POC ABG pCO2 POC ABG pO2 Sodium Potassium Chloride Carbon Dioxide BUN 30 H Creatinine 0.7 L Glucose 291 H POC Glucose 320 H 365 H Lactic Acid Calcium Magnesium AST Alkaline Phosphatase Total Creatine Kinase CK-MB (CK-2) Troponin T C-Reactive Protein Total Protein Albumin Cholesterol LDL Cholesterol Direct HDL Cholesterol Free T4 Urine WBC (Auto) Urine Creatinine Urine Total Protein Crossmatch 09/07/18 09/07/18 09/07/18 13:52 17:12 21:29 WBC RBC Hgb Hct MCV MCH MCHC RDW Lymph % (Auto) [place] % (Auto) Eos % (Auto) Lymph # [place] # Eos # Seg Neutrophils % Seg Neuts % (Manual) Lymphocytes % (Manual) Seg Neutrophils # Seg Neutrophils # Man Lymphocytes # (Manual) Eosinophils # (Manual) PT INR APTT D-Dimer Heparin Anti-Xa Level POC ABG pH POC ABG pCO2 POC ABG pO2 Sodium Potassium Chloride Carbon Dioxide BUN Creatinine Glucose POC Glucose 364 H 338 H 242 H Lactic Acid Calcium Magnesium AST Alkaline Phosphatase Total Creatine Kinase CK-MB (CK-2) Troponin T C-Reactive Protein Total Protein Albumin Cholesterol LDL Cholesterol Direct HDL Cholesterol Free T4 Urine WBC (Auto) Urine Creatinine Urine Total Protein Crossmatch 09/07/18 09/08/18 09/08/18 22:24 02:02 04:22 WBC 14.8 H RBC 3.15 L Hgb 8.5 L Hct 26.3 L MCV 83 L MCH 27 L MCHC RDW 19.6 H Lymph % (Auto) [place] % (Auto) Eos % (Auto) Lymph # [place] # Eos # Seg Neutrophils % Seg Neuts % (Manual) Lymphocytes % (Manual) Seg Neutrophils # Seg Neutrophils # Man Lymphocytes # (Manual) Eosinophils # (Manual) PT INR APTT D-Dimer Heparin Anti-Xa Level POC ABG pH 7.484 H POC ABG pCO2 POC ABG pO2 61 L Sodium Potassium Chloride Carbon Dioxide BUN Creatinine Glucose POC Glucose 324 H Lactic Acid Calcium Magnesium AST Alkaline Phosphatase Total Creatine Kinase CK-MB (CK-2) Troponin T C-Reactive Protein Total Protein Albumin Cholesterol LDL Cholesterol Direct HDL Cholesterol Free T4 Urine WBC (Auto) Urine Creatinine Urine Total Protein Crossmatch 09/08/18 09/08/18 09/08/18 04:22 05:33 09:40 WBC RBC Hgb Hct MCV MCH MCHC RDW Lymph % (Auto) [place] % (Auto) Eos % (Auto) Lymph # [place] # Eos # Seg Neutrophils % Seg Neuts % (Manual) Lymphocytes % (Manual) Seg Neutrophils # Seg Neutrophils # Man Lymphocytes # (Manual) Eosinophils # (Manual) PT INR APTT D-Dimer Heparin Anti-Xa Level POC ABG pH POC ABG pCO2 POC ABG pO2 Sodium Potassium Chloride Carbon Dioxide BUN 39 H Creatinine Glucose 320 H POC Glucose 324 H 329 H Lactic Acid Calcium 8.3 L Magnesium AST Alkaline Phosphatase Total Creatine Kinase CK-MB (CK-2) Troponin T C-Reactive Protein Total Protein Albumin Cholesterol LDL Cholesterol Direct HDL Cholesterol Free T4 Urine WBC (Auto) Urine Creatinine Urine Total Protein Crossmatch 09/08/18 09/08/18 09/08/18 13:11 18:02 21:27 WBC RBC Hgb Hct MCV MCH MCHC RDW Lymph % (Auto) [place] % (Auto) Eos % (Auto) Lymph # [place] # Eos # Seg Neutrophils % Seg Neuts % (Manual) Lymphocytes % (Manual) Seg Neutrophils # Seg Neutrophils # Man Lymphocytes # (Manual) Eosinophils # (Manual) PT INR APTT D-Dimer Heparin Anti-Xa Level POC ABG pH POC ABG pCO2 POC ABG pO2 Sodium Potassium Chloride Carbon Dioxide BUN Creatinine Glucose POC Glucose 369 H 331 H 304 H Lactic Acid Calcium Magnesium AST Alkaline Phosphatase Total Creatine Kinase CK-MB (CK-2) Troponin T C-Reactive Protein Total Protein Albumin Cholesterol LDL Cholesterol Direct HDL Cholesterol Free T4 Urine WBC (Auto) Urine Creatinine Urine Total Protein Crossmatch 09/09/18 09/09/18 09/09/18 02:03 05:29 09:20 WBC RBC Hgb Hct MCV MCH MCHC RDW Lymph % (Auto) [place] % (Auto) Eos % (Auto) Lymph # [place] # Eos # Seg Neutrophils % Seg Neuts % (Manual) Lymphocytes % (Manual) Seg Neutrophils # Seg Neutrophils # Man Lymphocytes # (Manual) Eosinophils # (Manual) PT INR APTT D-Dimer Heparin Anti-Xa Level POC ABG pH POC ABG pCO2 POC ABG pO2 Sodium Potassium Chloride Carbon Dioxide BUN Creatinine Glucose POC Glucose 361 H 204 H 292 H Lactic Acid Calcium Magnesium AST Alkaline Phosphatase Total Creatine Kinase CK-MB (CK-2) Troponin T C-Reactive Protein Total Protein Albumin Cholesterol LDL Cholesterol Direct HDL Cholesterol Free T4 Urine WBC (Auto) Urine Creatinine Urine Total Protein Crossmatch 09/09/18 09/09/18 09/09/18 14:20 15:04 18:08 WBC RBC Hgb Hct MCV MCH MCHC RDW Lymph % (Auto) [place] % (Auto) Eos % (Auto) Lymph # [place] # Eos # Seg Neutrophils % Seg Neuts % (Manual) Lymphocytes % (Manual) Seg Neutrophils # Seg Neutrophils # Man Lymphocytes # (Manual) Eosinophils # (Manual) PT INR APTT D-Dimer Heparin Anti-Xa Level POC ABG pH 7.464 H POC ABG pCO2 POC ABG pO2 109 H Sodium Potassium Chloride Carbon Dioxide BUN Creatinine Glucose POC Glucose 253 H 196 H Lactic Acid Calcium Magnesium AST Alkaline Phosphatase Total Creatine Kinase CK-MB (CK-2) Troponin T C-Reactive Protein Total Protein Albumin Cholesterol LDL Cholesterol Direct HDL Cholesterol Free T4 Urine WBC (Auto) Urine Creatinine Urine Total Protein Crossmatch 09/09/18 09/10/18 09/10/18 22:23 02:32 06:10 WBC RBC Hgb Hct MCV MCH MCHC RDW Lymph % (Auto) [place] % (Auto) Eos % (Auto) Lymph # [place] # Eos # Seg Neutrophils % Seg Neuts % (Manual) Lymphocytes % (Manual) Seg Neutrophils # Seg Neutrophils # Man Lymphocytes # (Manual) Eosinophils # (Manual) PT INR APTT D-Dimer Heparin Anti-Xa Level POC ABG pH POC ABG pCO2 POC ABG pO2 Sodium Potassium Chloride Carbon Dioxide BUN Creatinine Glucose POC Glucose 245 H 238 H 250 H Lactic Acid Calcium Magnesium AST Alkaline Phosphatase Total Creatine Kinase CK-MB (CK-2) Troponin T C-Reactive Protein Total Protein Albumin Cholesterol LDL Cholesterol Direct HDL Cholesterol Free T4 Urine WBC (Auto) Urine Creatinine Urine Total Protein Crossmatch 09/10/18 09/10/18 09/10/18 08:16 11:35 21:18 WBC RBC Hgb Hct MCV MCH MCHC RDW Lymph % (Auto) [place] % (Auto) Eos % (Auto) Lymph # [place] # Eos # Seg Neutrophils % Seg Neuts % (Manual) Lymphocytes % (Manual) Seg Neutrophils # Seg Neutrophils # Man Lymphocytes # (Manual) Eosinophils # (Manual) PT INR APTT D-Dimer Heparin Anti-Xa Level POC ABG pH POC ABG pCO2 POC ABG pO2 Sodium Potassium Chloride Carbon Dioxide BUN Creatinine Glucose POC Glucose 232 H 267 H 270 H Lactic Acid Calcium Magnesium AST Alkaline Phosphatase Total Creatine Kinase CK-MB (CK-2) Troponin T C-Reactive Protein Total Protein Albumin Cholesterol LDL Cholesterol Direct HDL Cholesterol Free T4 Urine WBC (Auto) Urine Creatinine Urine Total Protein Crossmatch 09/11/18 09/11/18 09/11/18 06:21 07:49 12:02 WBC RBC Hgb Hct MCV MCH MCHC RDW Lymph % (Auto) [place] % (Auto) Eos % (Auto) Lymph # [place] # Eos # Seg Neutrophils % Seg Neuts % (Manual) Lymphocytes % (Manual) Seg Neutrophils # Seg Neutrophils # Man Lymphocytes # (Manual) Eosinophils # (Manual) PT INR APTT D-Dimer Heparin Anti-Xa Level POC ABG pH POC ABG pCO2 POC ABG pO2 Sodium Potassium Chloride Carbon Dioxide BUN Creatinine Glucose POC Glucose 255 H 233 H 200 H Lactic Acid Calcium Magnesium AST Alkaline Phosphatase Total Creatine Kinase CK-MB (CK-2) Troponin T C-Reactive Protein Total Protein Albumin Cholesterol LDL Cholesterol Direct HDL Cholesterol Free T4 Urine WBC (Auto) Urine Creatinine Urine Total Protein Crossmatch 09/11/18 09/11/18 09/11/18 16:35 21:09 22:33 WBC 12.1 H RBC 3.16 L Hgb 8.5 L Hct 26.2 L MCV 83 L MCH 27 L MCHC RDW 20.7 H Lymph % (Auto) [place] % (Auto) Eos % (Auto) Lymph # [place] # Eos # Seg Neutrophils % Seg Neuts % (Manual) 77.0 H Lymphocytes % (Manual) 13.0 L Seg Neutrophils # Seg Neutrophils # Man 9.3 H Lymphocytes # (Manual) Eosinophils # (Manual) 0.5 H PT INR APTT D-Dimer Heparin Anti-Xa Level POC ABG pH POC ABG pCO2 POC ABG pO2 Sodium Potassium Chloride Carbon Dioxide BUN Creatinine Glucose POC Glucose 210 H 256 H Lactic Acid Calcium Magnesium AST Alkaline Phosphatase Total Creatine Kinase CK-MB (CK-2) Troponin T C-Reactive Protein Total Protein Albumin Cholesterol LDL Cholesterol Direct HDL Cholesterol Free T4 Urine WBC (Auto) Urine Creatinine Urine Total Protein Crossmatch 09/11/18 09/12/18 09/12/18 23:59 05:07 05:07 WBC RBC 2.89 L Hgb 7.9 L Hct 23.9 L MCV 83 L MCH 27 L MCHC RDW 20.1 H Lymph % (Auto) [place] % (Auto) 7.8 H Eos % (Auto) Lymph # [place] # 0.9 H Eos # Seg Neutrophils % 70.2 H Seg Neuts % (Manual) Lymphocytes % (Manual) Seg Neutrophils # Seg Neutrophils # Man Lymphocytes # (Manual) Eosinophils # (Manual) PT INR APTT D-Dimer Heparin Anti-Xa Level POC ABG pH POC ABG pCO2 POC ABG pO2 Sodium 149 H D Potassium 3.5 L Chloride 110.6 H Carbon Dioxide BUN 32 H Creatinine Glucose 222 H POC Glucose 267 H Lactic Acid Calcium 8.2 L Magnesium AST Alkaline Phosphatase Total Creatine Kinase CK-MB (CK-2) Troponin T C-Reactive Protein Total Protein Albumin Cholesterol LDL Cholesterol Direct HDL Cholesterol Free T4 Urine WBC (Auto) Urine Creatinine Urine Total Protein Crossmatch 09/12/18 09/12/18 09/12/18 05:36 07:22 11:18 WBC RBC Hgb Hct MCV MCH MCHC RDW Lymph % (Auto) [place] % (Auto) Eos % (Auto) Lymph # [place] # Eos # Seg Neutrophils % Seg Neuts % (Manual) Lymphocytes % (Manual) Seg Neutrophils # Seg Neutrophils # Man Lymphocytes # (Manual) Eosinophils # (Manual) PT INR APTT D-Dimer Heparin Anti-Xa Level POC ABG pH POC ABG pCO2 POC ABG pO2 Sodium Potassium Chloride Carbon Dioxide BUN Creatinine Glucose POC Glucose 251 H 210 H 202 H Lactic Acid Calcium Magnesium AST Alkaline Phosphatase Total Creatine Kinase CK-MB (CK-2) Troponin T C-Reactive Protein Total Protein Albumin Cholesterol LDL Cholesterol Direct HDL Cholesterol Free T4 Urine WBC (Auto) Urine Creatinine Urine Total Protein Crossmatch 09/12/18 09/12/18 09/12/18 16:12 18:24 22:09 WBC RBC Hgb Hct MCV MCH MCHC RDW Lymph % (Auto) [place] % (Auto) Eos % (Auto) Lymph # [place] # Eos # Seg Neutrophils % Seg Neuts % (Manual) Lymphocytes % (Manual) Seg Neutrophils # Seg Neutrophils # Man Lymphocytes # (Manual) Eosinophils # (Manual) PT INR APTT D-Dimer Heparin Anti-Xa Level POC ABG pH POC ABG pCO2 POC ABG pO2 Sodium Potassium Chloride Carbon Dioxide BUN Creatinine Glucose POC Glucose 209 H 212 H 173 H Lactic Acid Calcium Magnesium AST Alkaline Phosphatase Total Creatine Kinase CK-MB (CK-2) Troponin T C-Reactive Protein Total Protein Albumin Cholesterol LDL Cholesterol Direct HDL Cholesterol Free T4 Urine WBC (Auto) Urine Creatinine Urine Total Protein Crossmatch 09/13/18 09/13/18 09/13/18 02:25 05:54 07:06 WBC RBC 3.00 L Hgb 8.2 L Hct 24.9 L MCV 83 L MCH 27 L MCHC RDW 21.2 H Lymph % (Auto) [place] % (Auto) 9.6 H Eos % (Auto) 7.6 H Lymph # [place] # Eos # 0.7 H Seg Neutrophils % Seg Neuts % (Manual) Lymphocytes % (Manual) Seg Neutrophils # Seg Neutrophils # Man Lymphocytes # (Manual) Eosinophils # (Manual) PT INR APTT D-Dimer Heparin Anti-Xa Level POC ABG pH POC ABG pCO2 POC ABG pO2 Sodium Potassium Chloride Carbon Dioxide BUN Creatinine Glucose POC Glucose 167 H 178 H Lactic Acid Calcium Magnesium AST Alkaline Phosphatase Total Creatine Kinase CK-MB (CK-2) Troponin T C-Reactive Protein Total Protein Albumin Cholesterol LDL Cholesterol Direct HDL Cholesterol Free T4 Urine WBC (Auto) Urine Creatinine Urine Total Protein Crossmatch 09/13/18 09/13/18 07:06 09:46 WBC RBC Hgb Hct MCV MCH MCHC RDW Lymph % (Auto) [place] % (Auto) Eos % (Auto) Lymph # [place] # Eos # Seg Neutrophils % Seg Neuts % (Manual) Lymphocytes % (Manual) Seg Neutrophils # Seg Neutrophils # Man Lymphocytes # (Manual) Eosinophils # (Manual) PT INR APTT D-Dimer Heparin Anti-Xa Level POC ABG pH POC ABG pCO2 POC ABG pO2 Sodium 146 H Potassium 3.3 L Chloride 107.6 H Carbon Dioxide BUN 26 H Creatinine Glucose 138 H POC Glucose 157 H Lactic Acid Calcium 8.0 L Magnesium AST Alkaline Phosphatase Total Creatine Kinase CK-MB (CK-2) Troponin T C-Reactive Protein Total Protein Albumin Cholesterol LDL Cholesterol Direct HDL Cholesterol Free T4 Urine WBC (Auto) Urine Creatinine Urine Total Protein Crossmatch
[2018-09-13] MEDS: PEPCID PO SCH ×2 (11:50→22:31)
[2018-09-13] MEDS: ASPIRIN PO SCH (11:50)
[2018-09-13] MEDS: NORVASC FEEDTUBE SCH (11:50)
[2018-09-13] MEDS: KEPPRA PO SCH ×2 (11:57→22:30)
[2018-09-13] MEDS: ROCEPHIN/NS 1 GM/50 ML 1 GM/50 ML BAG IV SCH (11:58)
[2018-09-13] MEDS: SENOKOT S PO SCH (11:58)
[2018-09-13] MEDS: SODIUM CHLORIDE FLUSH SYRINGE 10 ML IV SCH ×2 (11:59→22:31)
--- NOTE | 2018-09-13 12:36 | Progress Note ---
Assessment and Plan Assessment and plan: Sepsis: Previously Resolved with treating UTI. Patient had been off antibiotic s. However with new temperature spike 09/10/18. Recheck blood cultures. 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 Acute on chronic respiratory failure Trach has been removed when patient was orally intubated, continue ventilator management per pulmonology. Tracheostomy was replaced by surgery on 08/25/18. Tracheostomy care, airway clearance, secretion management Right pneumothorax, resolved. Status post chest tube, mgt per pulmonology Hypoxic encephalopathy: neurology consult appreciated, poor prognosis, poor likelihood of recovery, preserved brain stem function otherwise unresponsive. EEG is suggestive hypoxic encephalopathy. Seizure disorder with breakthrough seizures. Continue Keppra twice a day. S eizure precautions. Hypertension. Hydralazine 100 mg 3 times a day, cont norvasc Hypernatremia, Continue free water via G-tube, sp hypotonic IV solution, monitor bmp closely Acute kidney injury likely due to ATN Nephrology following, continue IV fluid, avoid renal toxic agents NSTEMI: treated with IV heparin, asa, statin, no bblocker due to bradycardia, hypotension, Cardiology is following Severe protein calorie malnutrition: Dietitian consulted, continue tube feedings Type 2 dm with persistent hyperglycemia: cont insulins and adjust according, on tube feedings Anemia: s/p transfusion Urinary retention: continue douglass, condom cath DVT prophylaxis; patient is fully anticoagulated on heparin drip Disposition. I discussed with the family penitentiary placement. History Interval history: Patient is a 77 yo man from [facility] with a history of respiratory failure, CVA with tracheostomy and Gtube who presented to [facility] ED following cardiac arrest after being [facility] unresponsive at the penitentiary. Time down is unknown per records. The patient is on the vent and unresponsive, all history is obtained from the chart. Patient had multiple episodes of arrest/pulselessness. He has been on the vent since then without any improvement. Per ER notes the patient was bagged via tracheostomy which continued to have low tidal volumes and so the patient with orally intubated after which tidal volumes improved. I spoke with and daughter, Felicita and they believe that he aspirated with a mucus plug that caused the cardiopulmonary arrest not NSTEMI.. Initially, he went to [facility] to june 05, he had fluid on brain and multiple strokes per family and they drained the fluid off the brain. The trach was placed at [facility] and patient went to [facility], x 7 weeks (trach was changed where capped was placed), he was doing well, talking and sitting up. Then he went to [facility], August 03 and his oral care was horrible. The trach care was horrible and not enough suctioning done. Mouth with copious amount of crud. Then on August 12, Friday, he had voice changing and mucus plugging. Followed by respiratory arrest. The NM brain flow scan showed reduced blood flow. Patient had evaluation by neurology who reports patient with intact brainstem function. Patient still comatose, no improvement. LTAC was recommended but denied. Hospitalist Physical - Constitutional Vitals: Temp Pulse Resp BP Pulse Ox 98.4 F 87 20 165/58 100 09/13/18 12:29 09/13/18 12:29 09/13/18 12:29 09/13/18 12:29 09/13/18 12:29 General appearance: Present: other (twitching, nonresponsive, intubated) - EENT Eyes: Present: PERRL, EOM intact ENT: hearing intact, clear oral mucosa, dentition normal - Neck Neck: Present: supple, normal ROM - Respiratory Respiratory effort: normal Respiratory: bilateral: CTA - Cardiovascular Rhythm: regular Heart Sounds: Present: S1 & S2. Absent: gallop, rub - Extremities Extremities: no ischemia, No edema, Full ROM - Abdominal General gastrointestinal: soft, non-tender, non-distended, normal bowel sounds - Integumentary Integumentary: Present: clear, warm, dry - Neurologic Neurologic: other (nonverbal) Results - Labs CBC & Chem 7: 09/13/18 07:06 09/13/18 07:06 Labs: Laboratory Last Values WBC 8.7 K/mm3 (4.5-11.0) 09/13/18 07:06 RBC 3.00 M/mm3 (3.65-5.03) L 09/13/18 07:06 Hgb 8.2 gm/dl (11.8-15.2) L 09/13/18 07:06 Hct 24.9 % (35.5-45.6) L 09/13/18 07:06 MCV 83 fl (84-94) L 09/13/18 07:06 MCH 27 pg (28-32) L 09/13/18 07:06 MCHC 33 % (32-34) 09/13/18 07:06 RDW 21.2 % (13.2-15.2) H 09/13/18 07:06 Plt Count 300 K/mm3 (140-440) 09/13/18 07:06 Lymph % (Auto) 21.6 % (13.4-35.0) 09/13/18 07:06 [place] % (Auto) 9.6 % (0.0-7.3) H 09/13/18 07:06 Eos % (Auto) 7.6 % (0.0-4.3) H 09/13/18 07:06 Baso % (Auto) 0.4 % (0.0-1.8) 09/13/18 07:06 Lymph # 1.9 K/mm3 (1.2-5.4) 09/13/18 07:06 [place] # 0.8 K/mm3 (0.0-0.8) 09/13/18 07:06 Eos # 0.7 K/mm3 (0.0-0.4) H 09/13/18 07:06 Baso # 0.0 K/mm3 (0.0-0.1) 09/13/18 07:06 Add Manual Diff Complete 09/11/18 22:33 Total Counted 100 09/11/18 22:33 Seg Neutrophils % 60.8 % (40.0-70.0) 09/13/18 07:06 Seg Neuts % (Manual) 77.0 % (40.0-70.0) H 09/11/18 22:33 0 % 09/11/18 22:33 13.0 % (13.4-35.0) L 09/11/18 22:33 Reactive Lymphs % (Man) 0 % 09/11/18 22:33 6.0 % (0.0-7.3) 09/11/18 22:33 4.0 % (0.0-4.3) 09/11/18 22:33 0 % (0.0-1.8) 09/11/18 22:33 0 % 09/11/18 22:33 0 % 09/11/18 22:33 0 % 09/11/18 22:33 0 % 09/11/18 22:33 Nucleated RBC % Not Reportable 09/11/18 22:33 Seg Neutrophils # 5.3 K/mm3 (1.8-7.7) 09/13/18 07:06 Seg Neutrophils # Man 9.3 K/mm3 (1.8-7.7) H 09/11/18 22:33 Band Neutrophils # 0.0 K/mm3 09/11/18 22:33 1.6 K/mm3 (1.2-5.4) 09/11/18 22:33 Abs React Lymphs (Man) 0.0 K/mm3 09/11/18 22:33 0.7 K/mm3 (0.0-0.8) 09/11/18 22:33 0.5 K/mm3 (0.0-0.4) H 09/11/18 22:33 0.0 K/mm3 (0.0-0.1) 09/11/18 22:33 0.0 K/mm3 09/11/18 22:33 0.0 K/mm3 09/11/18 22:33 0.0 K/mm3 09/11/18 22:33 Blast Cells # 0.0 K/mm3 09/11/18 22:33 WBC Morphology Not Reportable 09/11/18 22:33 Hypersegmented Neuts Not Reportable 09/11/18 22:33 Hyposegmented Neuts Not Reportable 09/11/18 22:33 Hypogranular Neuts Not Reportable 09/11/18 22:33 Not Reportable 09/11/18 22:33 Not Reportable 09/11/18 22:33 Not Reportable 09/11/18 22:33 Not Reportable 09/11/18 22:33 Not Reportable 09/11/18 22:33 Not Reportable 09/11/18 22:33 Appears normal 09/11/18 22:33 Not Reportable 09/11/18 22:33 Plt Clumps, EDTA Not Reportable 09/11/18 22:33 Not Reportable 09/11/18 22:33 Not Reportable 09/11/18 22:33 Not Reportable 09/11/18 22:33 Plt Morphology Comment Not Reportable 09/11/18 22:33 RBC Morphology Not Reportable 09/11/18 22:33 Dimorphic RBCs Not Reportable 09/11/18 22:33 Not Reportable 09/11/18 22:33 Not Reportable 09/11/18 22:33 Few 09/11/18 22:33 1+ 09/11/18 22:33 Not Reportable 09/11/18 22:33 Not Reportable 09/11/18 22:33 Not Reportable 09/11/18 22:33 Not Reportable 09/11/18 22:33 Not Reportable 09/11/18 22:33 Not Reportable 09/11/18 22:33 Not Reportable 09/11/18 22:33 Not Reportable 09/11/18 22:33 Not Reportable 09/11/18 22:33 Not Reportable 09/11/18 22:33 Not Reportable 09/11/18 22:33 Not Reportable 09/11/18 22:33 Not Reportable 09/11/18 22:33 Not Reportable 09/11/18 22:33 Not Reportable 09/11/18 22:33 Acanthocytes (Spur) Not Reportable 09/11/18 22:33 Rouleaux Not Reportable 09/11/18 22:33 Not Reportable 09/11/18 22:33 Not Reportable 09/11/18 22:33 Not Reportable 09/11/18 22:33 Not Reportable 09/11/18 22:33 Hem Pathologist Commnt No 09/11/18 22:33 PT 16.5 Sec. (12.2-14.9) H 08/13/18 00:47 INR 1.25 (0.87-1.13) H 08/13/18 00:47 APTT 79.0 Sec. (24.2-36.6) H* 08/15/18 06:35 2742.50 ng/mlDDU (0-234) H 08/13/18 20:07 Heparin Anti-Xa Level 0.26 U.I./ml (0.3-0.7) L 08/16/18 20:01 POC ABG pH 7.447 (7.35-7.45) 09/12/18 19:33 POC ABG pCO2 44.5 (35-45) 09/12/18 19:33 POC ABG pO2 88 (80-105) 09/12/18 19:33 POC ABG HCO3 30.7 (22-26 mml/L) 09/12/18 19:33 POC ABG Total CO2 32 (23-27mmol/L) 09/12/18 19:33 POC ABG O2 Sat 97 09/12/18 19:33 POC ABG Base Excess 7 ((-2) - (+3)mmol/L) 09/12/18 19:33 28 % 09/12/18 19:33 Sodium 146 mmol/L (137-145) H 09/13/18 07:06 Potassium 3.3 mmol/L (3.6-5.0) L 09/13/18 07:06 Chloride 107.6 mmol/L (98-107) H 09/13/18 07:06 Carbon Dioxide 29 mmol/L (22-30) 09/13/18 07:06 13 mmol/L 09/13/18 07:06 BUN 26 mg/dL (9-20) H 09/13/18 07:06 0.8 mg/dL (0.8-1.5) 09/13/18 07:06 Estimated GFR > 60 ml/min 09/13/18 07:06 33 % 09/13/18 07:06 Glucose 138 mg/dL (75-100) H 09/13/18 07:06 POC Glucose 157 (70-105) H 09/13/18 09:46 Lactic Acid 2.80 mmol/L (0.7-2.0) H* 08/13/18 12:53 Calcium 8.0 mg/dL (8.4-10.2) L 09/13/18 07:06 Phosphorus 3.90 mg/dL (2.5-4.5) 08/15/18 04:05 Magnesium 1.70 mg/dL (1.7-2.3) 09/06/18 14:35 < 0.20 mg/dL (0.1-1.2) 08/30/18 05:40 AST 50 units/L (5-40) H 08/30/18 05:40 ALT 31 units/L (7-56) 08/30/18 05:40 158 units/L (35-129) H 08/30/18 05:40 309 units/L (55-170) H 08/13/18 10:10 CK-MB (CK-2) 4.1 ng/mL (0.0-4.0) H 08/13/18 10:10 CK-MB (CK-2) Rel Index 1.3 (0-4) 08/13/18 10:10 0.409 ng/mL (0.00-0.029) H* 08/14/18 04:03 16.90 mg/dL (0.00-1.30) H 08/13/18 12:53 6.4 g/dL (6.3-8.2) 08/30/18 05:40 1.6 g/dL (3.9-5) L 08/30/18 05:40 0.3 % 08/30/18 05:40 Triglycerides 62 mg/dL (2-149) 08/13/18 00:32 Cholesterol 46 mg/dL (50-199) L 08/13/18 00:32 17 mg/dL (50-130) L 08/13/18 00:32 6 mg/dL (40-59) L 08/13/18 00:32 7.66 % 08/13/18 00:32 TSH 0.973 mlU/mL (0.270-4.200) 08/26/18 09:00 Free T4 0.51 ng/dL (0.76-1.46) L 08/26/18 09:00 Yellow (Yellow) 08/25/18 12:40 Turbid (Clear) 08/25/18 12:40 7.0 (5.0-7.0) 08/25/18 12:40 Ur Specific [place] 1.009 (1.003-1.030) 08/25/18 12:40 100 mg/dl mg/dL (Negative) 08/25/18 12:40 Neg mg/dL (Negative) 08/25/18 12:40 Neg mg/dL (Negative) 08/25/18 12:40 Mod (Negative) 08/25/18 12:40 Neg (Negative) 08/25/18 12:40 Neg (Negative) 08/25/18 12:40 < 2.0 mg/dL (<2.0) 08/25/18 12:40 Ur Leukocyte Esterase Lg (Negative) 08/25/18 12:40 > 182.0 /HPF (0.0-6.0) H 08/25/18 12:40 10.0 /HPF (0.0-6.0) 08/25/18 12:40 U Epithel Cells (Auto) 5.0 /HPF (0-13.0) 08/25/18 12:40 2+ /HPF (Negative) 08/13/18 00:50 3+ /HPF 08/25/18 12:40 None seen (None Seen) 08/14/18 17:20 60.9 mg/dL (0.1-20.0) H 08/14/18 17:20 32 mmol/L 08/14/18 17:20 64 mg/dL (5-11.8) H 08/14/18 17:20 Presumptive negative 08/12/18 21:30 Presumptive negative 08/12/18 21:30 Ur Barbiturates Screen Presumptive negative 08/12/18 21:30 Ur Phencyclidine Scrn Presumptive negative 08/12/18 21:30 Ur Amphetamines Screen Presumptive negative 08/12/18 21:30 U Benzodiazepines Scrn Presumptive negative 08/12/18 21:30 Presumptive negative 08/12/18 21:30 U Marijuana (THC) Screen Presumptive negative 08/12/18 21:30 Disclamer 08/12/18 21:30 Blood Type O POSITIVE 08/15/18 15:31 Antibody Screen Negative 08/15/18 15:31 Crossmatch See Detail 08/15/18 15:31 Active Medications - Current Medications Current Medications: Generic Name Dose Route Start Last Admin Trade Name Freq PRN Reason Stop Dose Admin Acetaminophen 650 mg 08/13/18 11:40 09/10/18 23:47 Tylenol PO 650 mg Q6H PRN Administration Fever >101 Amlodipine Besylate 5 mg 09/02/18 10:00 09/13/18 11:50 Norvasc FEEDTUBE 5 mg QDAY LENCHO Administration Lipase/Protease/Amylase 1 each 09/10/18 17:12 Pancreaze 10,500 Unit FEEDTUBE PRN PRN For Clogged Feeding Tube Aspirin 325 mg 08/17/18 10:00 09/13/18 11:50 Aspirin PO 325 mg QDAY LENCHO Administration Atorvastatin Calcium 40 mg 08/14/18 22:00 09/12/18 22:21 Lipitor PO 40 mg QHS LENCHO Administration Dextrose 50 ml 08/13/18 01:34 D50w (25gm) Syringe IV PRN PRN Hypoglycemia Enoxaparin Sodium 40 mg 08/17/18 22:00 09/12/18 22:21 Lovenox SUB-Q 40 mg QDAY@2200 LENCHO Administration Famotidine 20 mg 08/19/18 10:00 09/13/18 11:50 Pepcid PO 20 mg BID LENCHO Administration Hydralazine HCl 100 mg 09/02/18 09:00 09/13/18 05:51 Apresoline PO 100 mg Q8HR LENCHO Administration Hydralazine HCl 20 mg 09/02/18 08:16 Apresoline IV Q4HR PRN SBP>160 or DBP>110 Hydrophilic Ointment 1 applic 08/13/18 12:21 Vaseline Lip Therapy TP Q2HR PRN Dry Lips Ceftriaxone Sodium 1 gm in 50 mls @ 100 mls/hr 09/12/18 10:00 09/13/18 11:58 Rocephin/Ns 1 Gm/50 Ml IV 100 mls/hr Q24HR LENCHO Administration Protocol Insulin Glargine 45 units 09/08/18 22:00 09/12/18 22:21 Lantus SUB-Q 45 units QHS LENCHO Administration Insulin Human Lispro 0 unit 08/26/18 10:00 09/13/18 05:51 Humalog SUB-Q 2 unit Q4HR LENCHO Administration Protocol Levetiracetam 500 mg 08/27/18 22:00 09/13/18 11:57 Keppra PO 500 mg BID LENCHO Administration Multi-Ingred Cream/Lotion/Oil/Oint 1 applic 08/13/18 12:21 08/17/18 00:41 Artificial Tears Ophth Oint OU 1 applic Q4HR PRN Administration Dry Eye(s) Ondansetron HCl 4 mg 08/13/18 01:34 Zofran IV Q8H PRN Nausea And Vomiting Senna/Docusate Sodium 2 tab 09/07/18 14:00 09/13/18 11:58 Senokot S PO 2 tab DAILY LENCHO Administration Simple Syrup 15 ml 09/10/18 17:12 Simple Syrup FEEDTUBE PRN PRN Hypoglycemia Simple Syrup 30 ml 09/10/18 17:12 Simple Syrup FEEDTUBE PRN PRN Hypoglycemia Sodium Bicarbonate 325 mg 09/10/18 17:12 Sodium Bicarbonate FEEDTUBE PRN PRN For Clogged Feeding Tube Sodium Chloride 10 ml 08/13/18 10:00 09/13/18 11:59 Sodium Chloride Flush Syringe 10 Ml IV 10 ml BID LENCHO Administration Sodium Chloride 10 ml 08/13/18 01:34 08/30/18 22:29 Sodium Chloride Flush Syringe 10 Ml IV 10 ml PRN PRN Administration LINE FLUSH Nutrition/Malnutrition Assess - Dietary Evaluation Nutrition/Malnutrition Findings: Nutrition Notes Start: 08/13/18 15:41 Freq: Status: Active Protocol: Document 09/10/18 16:59 RM (Rec: 09/10/18 17:12 RM [id number]) Nutrition Notes Initial or Follow up Reassessment Current Diagnosis Acute Kidney Injury,Diabetes Other Pertinent Diagnosis Trach,Hx CVA,PEG, Sacral PU, Multiple PU, Anoxic brain injury,R pneumothorax Current Diet Vital 1.2 at 60 ml/hr Labs/Tests Na 141 (09/08/18) Pertinent Medications Reviewed Height 5 ft 8 in Weight 81.4 kg [place] Body Weight (kg) 70.00 BMI 27.3 Subjective/Other Information Observed Jevity 1.2 infusing at 60 ml/hr. Per nurse pt is tolerating TF. Percent of energy/protein needs met: 95%/92% Burn Absent Trauma Absent #1 Nutrition Diagnosis Inadequate oral intake Diagnosis Progress(for reassessment Continues documentation) Is patient on ventilator? No Is Patient Ambulatory and/or Out of Bed No REE-([facility]-confined to bed) 5540.312 Calculation Used for Recommendations [facility] Additional Notes Protein Needs: 87-122g (1.2-1. 5g/kg) Fluid Needs: 1 ml/kcal Nutrition Intervention Nutrition Support: Jevity 1.2 at 60 ml/hr. Water flush 100 mls q 4 hrs. Kcal 1,728 Protein (gm) 80 Fluid (mL) 1,162 Add Supplement/Snack (indicate name/kcal Magen BID /protein ) Provides kCal: 190 Provides Protein (gm) 5 Goal #1 Continue to meet at least 75% of calorie and protein needs via TF Anticipated Discharge Needs: Jevity 1.2 Follow-Up By: 09/16/18 Additional Comments Follow for TF tolerance
--- NOTE | 2018-09-13 14:07 | Consultation ---
History of Present Illness Consult date: 09/13/18 Chief complaint: wound - History of present illness History of present illness: 77 yo M with hx of respiratory failure, CVA was brought to the ER on 08/12/18 after being found unresponsive at his senior living. Time down is unknown per records. The patient remained unresponsive and unable to wean from vent and so he underwent tracheostomy and PEG tube placement. The patient is in coma and is awaiting placement. Wound care assessed the patient and found a right heel pressure ulcer in need of debridement. Surgery is consulted for evaluation. Past History Past Medical History: diabetes, hypertension, hyperlipidemia, seizures, stroke Past Surgical History: Other (trach and PEG) Social history: other (at senior living). denies: smoking, alcohol abuse, prescription drug abuse, IV drug use Family history: hypertension Medications and Allergies Allergies Allergy/AdvReac Type Severity Reaction Status Date / Time No Known Allergies Allergy Verified 08/12/18 21:47 Home Medications Medication Instructions Recorded Confirmed Last Taken Type Acetaminophen TAB 2 1000units FEEDTUBE Q6HR PRN 08/18/18 08/18/18 Unknown History Amantadine [Symmetrel] 100 mg FEEDTUBE DAILY 08/18/18 08/18/18 08/13/18 History Amlodipine Besylate [Norvasc] 5 mg FEEDTUBE DAILY 08/18/18 08/18/18 08/13/18 History Ascorbic Acid [Vitamin C Oral Liq] 500 mg FEEDTUBE QDAY 08/18/18 08/18/18 08/13/18 History Ascorbic Acid [Vitamin C with Fiordaliza 1 tab FEEDTUBE DAILY 08/18/18 08/18/18 Unknown History Hips] Aspirin BABY CHEW TAB 1 tab FEEDTUBE DAILY 08/18/18 08/18/18 Unknown History Aspirin BABY CHEW TAB 81 mg FEEDTUBE DAILY 08/18/18 08/18/18 08/13/18 History Atorvastatin Calcium [Lipitor] 40 mg FEEDTUBE DAILY 08/18/18 08/18/18 08/13/18 History Benazepril HCl 10 mg FEEDTUBE DAILY 08/18/18 08/18/18 08/13/18 History Bisacodyl [Dulcolax suppos] 10 mg OK QDAY PRN 08/18/18 08/18/18 Unknown History Docusate Sodium [Colace ORAL LIQ] 100 mg FEEDTUBE QDAY PRN 08/18/18 08/18/18 Unknown History Ferrous Sulfate [Ferrous Sulfate 7.5 ml FEEDTUBE DAILY 08/18/18 08/18/18 08/13/18 History 220 MG/5 ML] Glycopyrrolate [Robinul] 2 mg FEEDTUBE Q8H 08/18/18 08/18/18 08/13/18 History Heparin Sod,Porcine/0.9 % NaCl 5,000 units SUB-Q Q8H 08/18/18 08/18/18 Unknown History [Heparin 5,000 Unit/5 ml-Ns] Insulin Glargine,Hum.rec.anlog 40 unit SQ HS 08/18/18 08/18/18 08/12/18 History [Basaglar Kwikpen U-100] Lacosamide [Vimpat] 1 tab FEEDTUBE Q12HR 08/18/18 08/18/18 Unknown History Lipitor 10 mg FEEDTUBE DAILY 08/18/18 08/18/18 Unknown History Mag-Al Plus Suspension 5 ml FEEDTUBE Q4HR PRN 08/18/18 08/19/18 Unknown History Melatonin 3 mg FEEDTUBE HS 08/18/18 08/18/18 Unknown History Sucralfate [Carafate] 1 gm FEEDTUBE Q8H 08/18/18 08/18/18 08/13/18 History Tamsulosin 0.4 mg FEEDTUBE DAILY 08/18/18 08/18/18 Unknown History guaiFENesin 200 mg FEEDTUBE Q4H PRN 08/18/18 08/18/18 Unknown History Active Meds: Active Medications Acetaminophen (Tylenol) 650 mg PO Q6H PRN PRN Reason: Fever >101 Last Admin: 09/10/18 23:47 Dose: 650 mg Documented by: Amlodipine Besylate (Norvasc) 5 mg FEEDTUBE QDAY [facility] Last Admin: 09/13/18 11:50 Dose: 5 mg Documented by: Lipase/Protease/Amylase (Juana Alas 10,500 Unit) 1 each FEEDTUBE PRN PRN PRN Reason: For Clogged Feeding Tube Aspirin (Aspirin) 325 mg PO QDAY [facility] Last Admin: 09/13/18 11:50 Dose: 325 mg Documented by: Atorvastatin Calcium (Lipitor) 40 mg PO QHS [facility] Last Admin: 09/12/18 22:21 Dose: 40 mg Documented by: Dextrose (D50w (25gm) Syringe) 50 ml IV PRN PRN PRN Reason: Hypoglycemia Enoxaparin Sodium (Lovenox) 40 mg SUB-Q QDAY@2200 [facility] Last Admin: 09/12/18 22:21 Dose: 40 mg Documented by: Famotidine (Pepcid) 20 mg PO BID [facility] Last Admin: 09/13/18 11:50 Dose: 20 mg Documented by: Hydralazine HCl (Apresoline) 100 mg PO Q8HR [facility] Last Admin: 09/13/18 05:51 Dose: 100 mg Documented by: Hydralazine HCl (Apresoline) 20 mg IV Q4HR PRN PRN Reason: SBP>160 or DBP>110 Hydrophilic Ointment (Vaseline Lip Therapy) 1 applic TP Q2HR PRN PRN Reason: Dry Lips Ceftriaxone Sodium (Rocephin/Ns 1 Gm/50 Ml) 1 gm in 50 mls @ 100 mls/hr IV Q24HR [facility]; Protocol Last Admin: 09/13/18 11:58 Dose: 100 mls/hr Documented by: Insulin Glargine (Lantus) 45 units SUB-Q QHS [facility] Last Admin: 09/12/18 22:21 Dose: 45 units Documented by: Insulin Human Lispro (Humalog) 0 unit SUB-Q Q4HR [facility]; Protocol Last Admin: 09/13/18 12:34 Dose: 2 unit Documented by: Levetiracetam (Keppra) 500 mg PO BID [facility] Last Admin: 09/13/18 11:57 Dose: 500 mg Documented by: Multi-Ingred Cream/Lotion/Oil/Oint (Artificial Tears Ophth Oint) 1 applic OU Q4HR PRN PRN Reason: Dry Eye(s) Last Admin: 08/17/18 00:41 Dose: 1 applic Documented by: Ondansetron HCl (Zofran) 4 mg IV Q8H PRN PRN Reason: Nausea And Vomiting Senna/Docusate Sodium (Senokot S) 2 tab PO DAILY [facility] Last Admin: 09/13/18 11:58 Dose: 2 tab Documented by: Simple Syrup (Simple Syrup) 15 ml FEEDTUBE PRN PRN PRN Reason: Hypoglycemia Simple Syrup (Simple Syrup) 30 ml FEEDTUBE PRN PRN PRN Reason: Hypoglycemia Sodium Bicarbonate (Sodium Bicarbonate) 325 mg FEEDTUBE PRN PRN PRN Reason: For Clogged Feeding Tube Sodium Chloride (Sodium Chloride Flush Syringe 10 Ml) 10 ml IV BID LENCHO Last Admin: 09/13/18 11:59 Dose: 10 ml Documented by: Sodium Chloride (Sodium Chloride Flush Syringe 10 Ml) 10 ml IV PRN PRN PRN Reason: LINE FLUSH Last Admin: 08/30/18 22:29 Dose: 10 ml Documented by: Review of Systems ROS unobtainable: due to mental status Exam Vital Signs Pulse Ox 100 08/12/18 21:02 Narrative exam: Gen: Unresponsive ENT: trach in place CV: s1, s2+ resp: even and unlabored Ext: R heel ulcer with dry eschar. No drainage, erythema, or fluctuance. Results - Labs 09/13/18 07:06 09/13/18 07:06 Abnormal lab results 09/12/18 09/12/18 09/12/18 Range/Units 16:12 18:24 22:09 RBC (3.65-5.03) M/mm3 Hgb (11.8-15.2) gm/dl Hct (35.5-45.6) % MCV (84-94) fl MCH (28-32) pg RDW (13.2-15.2) % [place] % (Auto) (0.0-7.3) % Eos % (Auto) (0.0-4.3) % Eos # (0.0-0.4) K/mm3 Sodium (137-145) mmol/L Potassium (3.6-5.0) mmol/L Chloride (98-107) mmol/L BUN (9-20) mg/dL Glucose (75-100) mg/dL POC Glucose 209 H 212 H 173 H (70-105) Calcium (8.4-10.2) mg/dL 09/13/18 09/13/18 09/13/18 Range/Units 02:25 05:54 07:06 RBC 3.00 L (3.65-5.03) M/mm3 Hgb 8.2 L (11.8-15.2) gm/dl Hct 24.9 L (35.5-45.6) % MCV 83 L (84-94) fl MCH 27 L (28-32) pg RDW 21.2 H (13.2-15.2) % [place] % (Auto) 9.6 H (0.0-7.3) % Eos % (Auto) 7.6 H (0.0-4.3) % Eos # 0.7 H (0.0-0.4) K/mm3 Sodium (137-145) mmol/L Potassium (3.6-5.0) mmol/L Chloride (98-107) mmol/L BUN (9-20) mg/dL Glucose (75-100) mg/dL POC Glucose 167 H 178 H (70-105) Calcium (8.4-10.2) mg/dL 09/13/18 09/13/18 Range/Units 07:06 09:46 RBC (3.65-5.03) M/mm3 Hgb (11.8-15.2) gm/dl Hct (35.5-45.6) % MCV (84-94) fl MCH (28-32) pg RDW (13.2-15.2) % [place] % (Auto) (0.0-7.3) % Eos % (Auto) (0.0-4.3) % Eos # (0.0-0.4) K/mm3 Sodium 146 H (137-145) mmol/L Potassium 3.3 L (3.6-5.0) mmol/L Chloride 107.6 H (98-107) mmol/L BUN 26 H (9-20) mg/dL Glucose 138 H (75-100) mg/dL POC Glucose 157 H (70-105) Calcium 8.0 L (8.4-10.2) mg/dL Diabetes panel 09/13/18 Range/Units 07:06 Sodium 146 H (137-145) mmol/L Potassium 3.3 L (3.6-5.0) mmol/L Chloride 107.6 H (98-107) mmol/L Carbon Dioxide 29 (22-30) mmol/L BUN 26 H (9-20) mg/dL Creatinine 0.8 (0.8-1.5) mg/dL Glucose 138 H (75-100) mg/dL Calcium 8.0 L (8.4-10.2) mg/dL Calcium panel 09/13/18 Range/Units 07:06 Calcium 8.0 L (8.4-10.2) mg/dL Pituitary panel 09/13/18 Range/Units 07:06 Sodium 146 H (137-145) mmol/L Potassium 3.3 L (3.6-5.0) mmol/L Chloride 107.6 H (98-107) mmol/L Carbon Dioxide 29 (22-30) mmol/L BUN 26 H (9-20) mg/dL Creatinine 0.8 (0.8-1.5) mg/dL Glucose 138 H (75-100) mg/dL Calcium 8.0 L (8.4-10.2) mg/dL Adrenal panel 09/13/18 Range/Units 07:06 Sodium 146 H (137-145) mmol/L Potassium 3.3 L (3.6-5.0) mmol/L Chloride 107.6 H (98-107) mmol/L Carbon Dioxide 29 (22-30) mmol/L BUN 26 H (9-20) mg/dL Creatinine 0.8 (0.8-1.5) mg/dL Glucose 138 H (75-100) mg/dL Calcium 8.0 L (8.4-10.2) mg/dL Assessment and Plan 77 yo M with 1. right heel wound 2. bedbound 3. coma 4. s/p trach/PEG Plan: 1. will need debridement - consent obtained from daughter over telephone 2. continue offloading and turning 3. optimize nutrition/TF Thank you, please call with questions
--- NOTE | 2018-09-13 14:09 | Procedure Note ---
Date of procedure: 09/13/18 Pre-op diagnosis: unstageable right heel wound Post-op diagnosis: same Procedure: open excisional debridement of right heel wound Findings: Time out performed with Rn present. Lidocaine 4% applied to heel for several minutes. The wound was then prepped with betadine. The necrotic eschar was debrided sharply using a 10 blade and foreceps. The debridement was of the skin/subcutaneous level. The underlying tissue had pinpoint bleeding and bleeding from skin edges. The bleeding was controlled with pressure. Hemostasis was ensured. Calcium alginate was applied to the wound bed, covered with 4x4 gauze pressure dressing, ABD pad and wrapped with kerlex. The patient tolerated the procedure well, all sharps were disposed of appropriately. Anesthesia: local Surgeon: LUANNE LAWRENCE Estimated blood loss: minimal Pathology: none Condition: stable Disposition: no change
--- NOTE | 2018-09-13 17:28 | Progress Note ---
Assessment and Plan Patient not responding to verbal stimuli. Sleeping on T tube, FIO2 28%.O2 saturation 99%. No acute respiratory distress. - Patient Problems (1) Acute and chronic respiratory failure Current Visit: Yes Status: Acute Qualifiers: Respiratory failure complication: hypoxia Qualified Code(s): J96.21 - Acute and chronic respiratory failure with hypoxia Plan to address problem: S/p Tracheostomy. T tube FIO2 28%. Recommend albuterol/atrovent aerosol treatments q 6 hours. Continue S/C lovenox. Continue Famotidine. (2) Altered mental state Current Visit: Yes Status: Acute Plan to address problem: Management as per primary care and neurology. (3) Cardiac arrest Current Visit: Yes Status: Acute Plan to address problem: Patient sucessfully resucitated. Presently resting on T tube. (4) ACS (acute coronary syndrome) Current Visit: Yes Status: Acute Plan to address problem: Management as per cardiology. (5) MAYLIN (acute kidney injury) Current Visit: Yes Status: Acute Plan to address problem: Management as per nephrology. (6) Anemia Current Visit: Yes Status: Acute Plan to address problem: Management as per primary care and hematology. (7) Essential (primary) hypertension Current Visit: Yes Status: Acute Plan to address problem: Management as per primary care. (8) Pulmonary infiltrate Current Visit: Yes Status: Acute Plan to address problem: Reported perihilar and basilar infiltrate. Patient afebrile. No leukocytosis at the time of this chest xray. Recommend to repeat chest xray. Subjective Date of service: 09/13/18 Principal diagnosis: Acute hypoxemic resp failure; S/P cardiac arrest; Seizures; DM II; H/O CVA Interval history: Patient not responding to verbal stimuli. Sleeping on T tube, FIO2 28%.O2 saturation 99%. No acute respiratory distress. Objective Vital Signs - 12hr 09/13/18 09/13/18 09/13/18 08:00 08:14 08:22 Temperature 99.1 F Pulse Rate 85 Respiratory 18 Rate Blood Pressure 170/53 O2 Sat by Pulse 100 100 Oximetry O2 Sat by Pulse 100 Oximetry [ Assessment] 09/13/18 09/13/18 12:29 17:18 Temperature 98.4 F 98.0 F Pulse Rate 87 84 Respiratory 20 20 Rate Blood Pressure 165/58 148/60 O2 Sat by Pulse 100 100 Oximetry O2 Sat by Pulse Oximetry [ Assessment] Constitutional: no acute distress, other (Elderly looking AAM, normocephalic resting in bed on MVS) Eyes: non-icteric, injected, other (+periorbital swelling) ENT: oropharynx moist Neck: supple, no lymphadenopathy, no JVD, other (s/p tracheostomy) Effort: mildly labored Ascultation: Bilateral: diminished breath sounds, rhonchi Percussion: Bilateral: not dull Cardiovascular: regular rate and rhythm Gastrointestinal: normoactive bowel sounds, soft, non-tender, non-distended Integumentary: normal Extremities: no cyanosis, pulses normal, no ischemia or petechiae, edema (trace ) Neurologic: unable to assess, other (slight pupillary constriction to light) Psychiatric: other (unable to assess) CBC and BMP: 09/13/18 07:06 09/13/18 07:06 ABG, PT/INR, D-dimer: ABG POC ABG pH 7.447 (7.35-7.45) 09/12/18 19:33 POC ABG pCO2 44.5 (35-45) 09/12/18 19:33 POC ABG pO2 88 (80-105) 09/12/18 19:33 POC ABG HCO3 30.7 (22-26 mml/L) 09/12/18 19:33 POC ABG Total CO2 32 (23-27mmol/L) 09/12/18 19:33 POC ABG O2 Sat 97 09/12/18 19:33 PT/INR, D-dimer PT 16.5 Sec. (12.2-14.9) H 08/13/18 00:47 INR 1.25 (0.87-1.13) H 08/13/18 00:47 2742.50 ng/mlDDU (0-234) H 08/13/18 20:07 Abnormal lab findings: Abnormal Labs 08/12/18 08/12/18 08/12/18 21:44 21:44 21:44 WBC 15.5 H RBC 3.12 L Hgb 8.8 L Hct 28.9 L MCV MCH MCHC 31 L RDW 19.5 H Lymph % (Auto) [place] % (Auto) Eos % (Auto) Lymph # [place] # Eos # Seg Neutrophils % Seg Neuts % (Manual) Lymphocytes % (Manual) 48.0 H Seg Neutrophils # Seg Neutrophils # Man Lymphocytes # (Manual) 7.4 H Eosinophils # (Manual) PT 17.8 H INR 1.37 H APTT D-Dimer Heparin Anti-Xa Level POC ABG pH POC ABG pCO2 POC ABG pO2 Sodium 159 H Potassium Chloride 118.5 H Carbon Dioxide BUN 34 H Creatinine Glucose 161 H POC Glucose Lactic Acid Calcium Magnesium AST Alkaline Phosphatase Total Creatine Kinase CK-MB (CK-2) Troponin T 0.105 H* C-Reactive Protein Total Protein Albumin Cholesterol LDL Cholesterol Direct HDL Cholesterol Free T4 Urine WBC (Auto) Urine Creatinine Urine Total Protein Crossmatch 08/13/18 08/13/18 08/13/18 00:32 00:47 00:47 WBC RBC Hgb 9.2 L Hct 29.6 L MCV MCH MCHC RDW Lymph % (Auto) [place] % (Auto) Eos % (Auto) Lymph # [place] # Eos # Seg Neutrophils % Seg Neuts % (Manual) Lymphocytes % (Manual) Seg Neutrophils # Seg Neutrophils # Man Lymphocytes # (Manual) Eosinophils # (Manual) PT 16.5 H INR 1.25 H APTT 37.3 H D-Dimer Heparin Anti-Xa Level POC ABG pH POC ABG pCO2 POC ABG pO2 Sodium Potassium Chloride Carbon Dioxide BUN Creatinine Glucose POC Glucose Lactic Acid Calcium Magnesium AST Alkaline Phosphatase Total Creatine Kinase 211 H CK-MB (CK-2) 7.7 H Troponin T 0.169 H* D C-Reactive Protein Total Protein Albumin Cholesterol 46 L LDL Cholesterol Direct 17 L HDL Cholesterol 6 L Free T4 Urine WBC (Auto) Urine Creatinine Urine Total Protein Crossmatch 08/13/18 08/13/18 08/13/18 00:50 02:25 05:34 WBC RBC Hgb Hct MCV MCH MCHC RDW Lymph % (Auto) [place] % (Auto) Eos % (Auto) Lymph # [place] # Eos # Seg Neutrophils % Seg Neuts % (Manual) Lymphocytes % (Manual) Seg Neutrophils # Seg Neutrophils # Man Lymphocytes # (Manual) Eosinophils # (Manual) PT INR APTT D-Dimer Heparin Anti-Xa Level POC ABG pH 7.503 H POC ABG pCO2 POC ABG pO2 253 H Sodium Potassium Chloride Carbon Dioxide BUN Creatinine Glucose POC Glucose Lactic Acid Calcium Magnesium AST Alkaline Phosphatase Total Creatine Kinase 311 H CK-MB (CK-2) 10.4 H Troponin T 0.283 H* D C-Reactive Protein Total Protein Albumin Cholesterol LDL Cholesterol Direct HDL Cholesterol Free T4 Urine WBC (Auto) > 182.0 H Urine Creatinine Urine Total Protein Crossmatch 08/13/18 08/13/18 08/13/18 06:35 10:10 10:10 WBC RBC Hgb Hct MCV MCH MCHC RDW Lymph % (Auto) [place] % (Auto) Eos % (Auto) Lymph # [place] # Eos # Seg Neutrophils % Seg Neuts % (Manual) Lymphocytes % (Manual) Seg Neutrophils # Seg Neutrophils # Man Lymphocytes # (Manual) Eosinophils # (Manual) PT INR APTT D-Dimer Heparin Anti-Xa Level POC ABG pH 7.554 H POC ABG pCO2 33.5 L POC ABG pO2 220 H Sodium 158 H Potassium Chloride 117.1 H Carbon Dioxide BUN 53 H Creatinine 2.0 H Glucose 247 H POC Glucose Lactic Acid Calcium 8.2 L Magnesium AST Alkaline Phosphatase Total Creatine Kinase 309 H CK-MB (CK-2) 4.1 H Troponin T 0.470 H* D C-Reactive Protein Total Protein Albumin Cholesterol LDL Cholesterol Direct HDL Cholesterol Free T4 Urine WBC (Auto) Urine Creatinine Urine Total Protein Crossmatch 08/13/18 08/13/18 08/13/18 12:53 12:53 17:55 WBC RBC Hgb Hct MCV MCH MCHC RDW Lymph % (Auto) [place] % (Auto) Eos % (Auto) Lymph # [place] # Eos # Seg Neutrophils % Seg Neuts % (Manual) Lymphocytes % (Manual) Seg Neutrophils # Seg Neutrophils # Man Lymphocytes # (Manual) Eosinophils # (Manual) PT INR APTT D-Dimer Heparin Anti-Xa Level POC ABG pH POC ABG pCO2 POC ABG pO2 Sodium Potassium Chloride Carbon Dioxide BUN Creatinine Glucose POC Glucose 308 H Lactic Acid 2.80 H* Calcium Magnesium 2.50 H AST Alkaline Phosphatase Total Creatine Kinase CK-MB (CK-2) Troponin T C-Reactive Protein 16.90 H Total Protein Albumin Cholesterol LDL Cholesterol Direct HDL Cholesterol Free T4 Urine WBC (Auto) Urine Creatinine Urine Total Protein Crossmatch 08/13/18 08/13/18 08/13/18 20:07 21:16 23:17 WBC RBC Hgb Hct MCV MCH MCHC RDW Lymph % (Auto) [place] % (Auto) Eos % (Auto) Lymph # [place] # Eos # Seg Neutrophils % Seg Neuts % (Manual) Lymphocytes % (Manual) Seg Neutrophils # Seg Neutrophils # Man Lymphocytes # (Manual) Eosinophils # (Manual) PT INR APTT D-Dimer 2742.50 H Heparin Anti-Xa Level POC ABG pH 7.483 H POC ABG pCO2 30.8 L POC ABG pO2 150 H Sodium Potassium Chloride Carbon Dioxide BUN Creatinine Glucose POC Glucose 245 H Lactic Acid Calcium Magnesium AST Alkaline Phosphatase Total Creatine Kinase CK-MB (CK-2) Troponin T C-Reactive Protein Total Protein Albumin Cholesterol LDL Cholesterol Direct HDL Cholesterol Free T4 Urine WBC (Auto) Urine Creatinine Urine Total Protein Crossmatch 08/14/18 08/14/18 08/14/18 04:03 04:03 04:56 WBC 18.2 H RBC 2.62 L Hgb 7.3 L Hct 24.5 L MCV MCH MCHC RDW 18.9 H Lymph % (Auto) [place] % (Auto) Eos % (Auto) Lymph # [place] # 1.2 H Eos # Seg Neutrophils % 79.4 H Seg Neuts % (Manual) Lymphocytes % (Manual) Seg Neutrophils # 14.5 H Seg Neutrophils # Man Lymphocytes # (Manual) Eosinophils # (Manual) PT INR APTT D-Dimer Heparin Anti-Xa Level POC ABG pH POC ABG pCO2 33.5 L POC ABG pO2 153 H Sodium 152 H Potassium 3.4 L Chloride 113.8 H Carbon Dioxide BUN 72 H Creatinine 2.7 H Glucose 239 H POC Glucose Lactic Acid Calcium 7.6 L Magnesium AST 50 H Alkaline Phosphatase 219 H Total Creatine Kinase CK-MB (CK-2) Troponin T 0.409 H* C-Reactive Protein Total Protein 6.2 L Albumin 1.9 L Cholesterol LDL Cholesterol Direct HDL Cholesterol Free T4 Urine WBC (Auto) Urine Creatinine Urine Total Protein Crossmatch 08/14/18 08/14/18 08/14/18 05:18 13:38 15:35 WBC RBC Hgb Hct MCV MCH MCHC RDW Lymph % (Auto) [place] % (Auto) Eos % (Auto) Lymph # [place] # Eos # Seg Neutrophils % Seg Neuts % (Manual) Lymphocytes % (Manual) Seg Neutrophils # Seg Neutrophils # Man Lymphocytes # (Manual) Eosinophils # (Manual) PT INR APTT D-Dimer Heparin Anti-Xa Level POC ABG pH POC ABG pCO2 POC ABG pO2 Sodium 150 H Potassium 3.2 L Chloride 114.5 H Carbon Dioxide BUN 69 H Creatinine 2.3 H Glucose 247 H POC Glucose 242 H 296 H Lactic Acid Calcium 7.2 L Magnesium AST Alkaline Phosphatase Total Creatine Kinase CK-MB (CK-2) Troponin T C-Reactive Protein Total Protein Albumin Cholesterol LDL Cholesterol Direct HDL Cholesterol Free T4 Urine WBC (Auto) Urine Creatinine Urine Total Protein Crossmatch 08/14/18 08/14/18 08/14/18 17:01 17:20 23:47 WBC RBC Hgb Hct MCV MCH MCHC RDW Lymph % (Auto) [place] % (Auto) Eos % (Auto) Lymph # [place] # Eos # Seg Neutrophils % Seg Neuts % (Manual) Lymphocytes % (Manual) Seg Neutrophils # Seg Neutrophils # Man Lymphocytes # (Manual) Eosinophils # (Manual) PT INR APTT D-Dimer Heparin Anti-Xa Level POC ABG pH POC ABG pCO2 POC ABG pO2 Sodium Potassium Chloride Carbon Dioxide BUN Creatinine Glucose POC Glucose 261 H 280 H Lactic Acid Calcium Magnesium AST Alkaline Phosphatase Total Creatine Kinase CK-MB (CK-2) Troponin T C-Reactive Protein Total Protein Albumin Cholesterol LDL Cholesterol Direct HDL Cholesterol Free T4 Urine WBC (Auto) Urine Creatinine 60.9 H Urine Total Protein 64 H Crossmatch 08/15/18 08/15/18 08/15/18 04:05 04:05 04:05 WBC RBC Hgb 6.3 L Hct 19.7 L* MCV MCH MCHC RDW Lymph % (Auto) [place] % (Auto) Eos % (Auto) Lymph # [place] # Eos # Seg Neutrophils % Seg Neuts % (Manual) Lymphocytes % (Manual) Seg Neutrophils # Seg Neutrophils # Man Lymphocytes # (Manual) Eosinophils # (Manual) PT INR APTT D-Dimer Heparin Anti-Xa Level 0.17 L POC ABG pH POC ABG pCO2 POC ABG pO2 Sodium 146 H Potassium 3.0 L Chloride 110.6 H Carbon Dioxide BUN 64 H Creatinine 2.2 H Glucose 231 H POC Glucose Lactic Acid Calcium 7.1 L Magnesium AST Alkaline Phosphatase Total Creatine Kinase CK-MB (CK-2) Troponin T C-Reactive Protein Total Protein Albumin Cholesterol LDL Cholesterol Direct HDL Cholesterol Free T4 Urine WBC (Auto) Urine Creatinine Urine Total Protein Crossmatch 08/15/18 08/15/18 08/15/18 05:21 05:26 06:35 WBC RBC Hgb Hct MCV MCH MCHC RDW Lymph % (Auto) [place] % (Auto) Eos % (Auto) Lymph # [place] # Eos # Seg Neutrophils % Seg Neuts % (Manual) Lymphocytes % (Manual) Seg Neutrophils # Seg Neutrophils # Man Lymphocytes # (Manual) Eosinophils # (Manual) PT INR APTT 79.0 H* D-Dimer Heparin Anti-Xa Level POC ABG pH 7.494 H POC ABG pCO2 POC ABG pO2 155 H Sodium Potassium Chloride Carbon Dioxide BUN Creatinine Glucose POC Glucose 271 H Lactic Acid Calcium Magnesium AST Alkaline Phosphatase Total Creatine Kinase CK-MB (CK-2) Troponin T C-Reactive Protein Total Protein Albumin Cholesterol LDL Cholesterol Direct HDL Cholesterol Free T4 Urine WBC (Auto) Urine Creatinine Urine Total Protein Crossmatch 08/15/18 08/15/18 08/15/18 12:10 15:31 17:27 WBC RBC Hgb Hct MCV MCH MCHC RDW Lymph % (Auto) [place] % (Auto) Eos % (Auto) Lymph # [place] # Eos # Seg Neutrophils % Seg Neuts % (Manual) Lymphocytes % (Manual) Seg Neutrophils # Seg Neutrophils # Man Lymphocytes # (Manual) Eosinophils # (Manual) PT INR APTT D-Dimer Heparin Anti-Xa Level POC ABG pH POC ABG pCO2 POC ABG pO2 Sodium Potassium Chloride Carbon Dioxide BUN Creatinine Glucose POC Glucose 301 H 287 H Lactic Acid Calcium Magnesium AST Alkaline Phosphatase Total Creatine Kinase CK-MB (CK-2) Troponin T C-Reactive Protein Total Protein Albumin Cholesterol LDL Cholesterol Direct HDL Cholesterol Free T4 Urine WBC (Auto) Urine Creatinine Urine Total Protein Crossmatch See Detail 08/15/18 08/15/18 08/16/18 21:41 23:45 04:13 WBC RBC Hgb Hct MCV MCH MCHC RDW Lymph % (Auto) [place] % (Auto) Eos % (Auto) Lymph # [place] # Eos # Seg Neutrophils % Seg Neuts % (Manual) Lymphocytes % (Manual) Seg Neutrophils # Seg Neutrophils # Man Lymphocytes # (Manual) Eosinophils # (Manual) PT INR APTT D-Dimer Heparin Anti-Xa Level 0.19 L POC ABG pH POC ABG pCO2 32.1 L POC ABG pO2 107 H Sodium Potassium Chloride Carbon Dioxide BUN Creatinine Glucose POC Glucose 163 H Lactic Acid Calcium Magnesium AST Alkaline Phosphatase Total Creatine Kinase CK-MB (CK-2) Troponin T C-Reactive Protein Total Protein Albumin Cholesterol LDL Cholesterol Direct HDL Cholesterol Free T4 Urine WBC (Auto) Urine Creatinine Urine Total Protein Crossmatch 08/16/18 08/16/18 08/16/18 04:50 05:28 11:30 WBC RBC 2.67 L Hgb 8.1 L Hct 23.4 L MCV MCH MCHC 35 H RDW 18.3 H Lymph % (Auto) [place] % (Auto) Eos % (Auto) Lymph # [place] # Eos # Seg Neutrophils % Seg Neuts % (Manual) Lymphocytes % (Manual) Seg Neutrophils # Seg Neutrophils # Man Lymphocytes # (Manual) Eosinophils # (Manual) PT INR APTT D-Dimer Heparin Anti-Xa Level 0.19 L POC ABG pH POC ABG pCO2 POC ABG pO2 Sodium Potassium Chloride Carbon Dioxide BUN Creatinine Glucose POC Glucose 141 H Lactic Acid Calcium Magnesium AST Alkaline Phosphatase Total Creatine Kinase CK-MB (CK-2) Troponin T C-Reactive Protein Total Protein Albumin Cholesterol LDL Cholesterol Direct HDL Cholesterol Free T4 Urine WBC (Auto) Urine Creatinine Urine Total Protein Crossmatch 08/16/18 08/16/18 08/16/18 11:30 12:00 12:01 WBC RBC Hgb Hct MCV MCH MCHC RDW Lymph % (Auto) [place] % (Auto) Eos % (Auto) Lymph # [place] # Eos # Seg Neutrophils % Seg Neuts % (Manual) Lymphocytes % (Manual) Seg Neutrophils # Seg Neutrophils # Man Lymphocytes # (Manual) Eosinophils # (Manual) PT INR APTT D-Dimer Heparin Anti-Xa Level 0.15 L POC ABG pH POC ABG pCO2 POC ABG pO2 Sodium Potassium Chloride 107.8 H Carbon Dioxide 21 L BUN 47 H Creatinine 1.6 H Glucose 221 H POC Glucose 267 H Lactic Acid Calcium 6.9 L Magnesium AST Alkaline Phosphatase Total Creatine Kinase CK-MB (CK-2) Troponin T C-Reactive Protein Total Protein Albumin Cholesterol LDL Cholesterol Direct HDL Cholesterol Free T4 Urine WBC (Auto) Urine Creatinine Urine Total Protein Crossmatch 08/16/18 08/16/18 08/16/18 17:23 20:01 23:13 WBC RBC Hgb Hct MCV MCH MCHC RDW Lymph % (Auto) [place] % (Auto) Eos % (Auto) Lymph # [place] # Eos # Seg Neutrophils % Seg Neuts % (Manual) Lymphocytes % (Manual) Seg Neutrophils # Seg Neutrophils # Man Lymphocytes # (Manual) Eosinophils # (Manual) PT INR APTT D-Dimer Heparin Anti-Xa Level 0.26 L POC ABG pH POC ABG pCO2 POC ABG pO2 Sodium Potassium Chloride Carbon Dioxide BUN Creatinine Glucose POC Glucose 245 H 256 H Lactic Acid Calcium Magnesium AST Alkaline Phosphatase Total Creatine Kinase CK-MB (CK-2) Troponin T C-Reactive Protein Total Protein Albumin Cholesterol LDL Cholesterol Direct HDL Cholesterol Free T4 Urine WBC (Auto) Urine Creatinine Urine Total Protein Crossmatch 08/17/18 08/17/18 08/17/18 04:29 04:55 05:34 WBC RBC Hgb 8.2 L Hct 24.3 L MCV MCH MCHC RDW Lymph % (Auto) [place] % (Auto) Eos % (Auto) Lymph # [place] # Eos # Seg Neutrophils % Seg Neuts % (Manual) Lymphocytes % (Manual) Seg Neutrophils # Seg Neutrophils # Man Lymphocytes # (Manual) Eosinophils # (Manual) PT INR APTT D-Dimer Heparin Anti-Xa Level POC ABG pH POC ABG pCO2 32.4 L POC ABG pO2 108 H Sodium Potassium Chloride Carbon Dioxide BUN Creatinine Glucose POC Glucose 268 H Lactic Acid Calcium Magnesium AST Alkaline Phosphatase Total Creatine Kinase CK-MB (CK-2) Troponin T C-Reactive Protein Total Protein Albumin Cholesterol LDL Cholesterol Direct HDL Cholesterol Free T4 Urine WBC (Auto) Urine Creatinine Urine Total Protein Crossmatch 08/17/18 08/17/18 08/17/18 11:54 13:44 17:24 WBC RBC Hgb Hct MCV MCH MCHC RDW Lymph % (Auto) [place] % (Auto) Eos % (Auto) Lymph # [place] # Eos # Seg Neutrophils % Seg Neuts % (Manual) Lymphocytes % (Manual) Seg Neutrophils # Seg Neutrophils # Man Lymphocytes # (Manual) Eosinophils # (Manual) PT INR APTT D-Dimer Heparin Anti-Xa Level POC ABG pH POC ABG pCO2 32.7 L POC ABG pO2 142 H Sodium Potassium Chloride Carbon Dioxide BUN Creatinine Glucose POC Glucose 295 H 283 H Lactic Acid Calcium Magnesium AST Alkaline Phosphatase Total Creatine Kinase CK-MB (CK-2) Troponin T C-Reactive Protein Total Protein Albumin Cholesterol LDL Cholesterol Direct HDL Cholesterol Free T4 Urine WBC (Auto) Urine Creatinine Urine Total Protein Crossmatch 08/18/18 08/18/18 08/18/18 00:05 00:59 04:15 WBC RBC Hgb Hct MCV MCH MCHC RDW Lymph % (Auto) [place] % (Auto) Eos % (Auto) Lymph # [place] # Eos # Seg Neutrophils % Seg Neuts % (Manual) Lymphocytes % (Manual) Seg Neutrophils # Seg Neutrophils # Man Lymphocytes # (Manual) Eosinophils # (Manual) PT INR APTT D-Dimer Heparin Anti-Xa Level POC ABG pH POC ABG pCO2 POC ABG pO2 115 H Sodium Potassium Chloride Carbon Dioxide BUN Creatinine Glucose POC Glucose 247 H 251 H Lactic Acid Calcium Magnesium AST Alkaline Phosphatase Total Creatine Kinase CK-MB (CK-2) Troponin T C-Reactive Protein Total Protein Albumin Cholesterol LDL Cholesterol Direct HDL Cholesterol Free T4 Urine WBC (Auto) Urine Creatinine Urine Total Protein Crossmatch 08/18/18 08/18/18 08/18/18 05:02 12:20 17:51 WBC RBC Hgb Hct MCV MCH MCHC RDW Lymph % (Auto) [place] % (Auto) Eos % (Auto) Lymph # [place] # Eos # Seg Neutrophils % Seg Neuts % (Manual) Lymphocytes % (Manual) Seg Neutrophils # Seg Neutrophils # Man Lymphocytes # (Manual) Eosinophils # (Manual) PT INR APTT D-Dimer Heparin Anti-Xa Level POC ABG pH POC ABG pCO2 POC ABG pO2 Sodium Potassium Chloride Carbon Dioxide BUN Creatinine Glucose POC Glucose 282 H 209 H 261 H Lactic Acid Calcium Magnesium AST Alkaline Phosphatase Total Creatine Kinase CK-MB (CK-2) Troponin T C-Reactive Protein Total Protein Albumin Cholesterol LDL Cholesterol Direct HDL Cholesterol Free T4 Urine WBC (Auto) Urine Creatinine Urine Total Protein Crossmatch 08/18/18 08/19/18 08/19/18 23:30 04:54 05:16 WBC RBC 2.62 L Hgb 7.5 L Hct 23.1 L MCV MCH MCHC RDW 18.1 H Lymph % (Auto) [place] % (Auto) Eos % (Auto) Lymph # [place] # Eos # Seg Neutrophils % Seg Neuts % (Manual) Lymphocytes % (Manual) Seg Neutrophils # Seg Neutrophils # Man Lymphocytes # (Manual) Eosinophils # (Manual) PT INR APTT D-Dimer Heparin Anti-Xa Level POC ABG pH POC ABG pCO2 POC ABG pO2 58 L Sodium Potassium Chloride Carbon Dioxide BUN Creatinine Glucose POC Glucose 231 H Lactic Acid Calcium Magnesium AST Alkaline Phosphatase Total Creatine Kinase CK-MB (CK-2) Troponin T C-Reactive Protein Total Protein Albumin Cholesterol LDL Cholesterol Direct HDL Cholesterol Free T4 Urine WBC (Auto) Urine Creatinine Urine Total Protein Crossmatch 08/19/18 08/19/18 08/19/18 05:16 05:40 11:56 WBC RBC Hgb Hct MCV MCH MCHC RDW Lymph % (Auto) [place] % (Auto) Eos % (Auto) Lymph # [place] # Eos # Seg Neutrophils % Seg Neuts % (Manual) Lymphocytes % (Manual) Seg Neutrophils # Seg Neutrophils # Man Lymphocytes # (Manual) Eosinophils # (Manual) PT INR APTT D-Dimer Heparin Anti-Xa Level POC ABG pH POC ABG pCO2 POC ABG pO2 Sodium 152 H D Potassium Chloride 118.7 H Carbon Dioxide BUN 38 H Creatinine Glucose 220 H POC Glucose 227 H 213 H Lactic Acid Calcium 8.1 L D Magnesium AST Alkaline Phosphatase Total Creatine Kinase CK-MB (CK-2) Troponin T C-Reactive Protein Total Protein Albumin Cholesterol LDL Cholesterol Direct HDL Cholesterol Free T4 Urine WBC (Auto) Urine Creatinine Urine Total Protein Crossmatch 08/19/18 08/19/18 08/20/18 18:37 23:32 04:38 WBC RBC Hgb Hct MCV MCH MCHC RDW Lymph % (Auto) [place] % (Auto) Eos % (Auto) Lymph # [place] # Eos # Seg Neutrophils % Seg Neuts % (Manual) Lymphocytes % (Manual) Seg Neutrophils # Seg Neutrophils # Man Lymphocytes # (Manual) Eosinophils # (Manual) PT INR APTT D-Dimer Heparin Anti-Xa Level POC ABG pH POC ABG pCO2 POC ABG pO2 140 H Sodium Potassium Chloride Carbon Dioxide BUN Creatinine Glucose POC Glucose 227 H 245 H Lactic Acid Calcium Magnesium AST Alkaline Phosphatase Total Creatine Kinase CK-MB (CK-2) Troponin T C-Reactive Protein Total Protein Albumin Cholesterol LDL Cholesterol Direct HDL Cholesterol Free T4 Urine WBC (Auto) Urine Creatinine Urine Total Protein Crossmatch 08/20/18 08/20/18 08/20/18 05:31 05:37 05:37 WBC RBC 2.60 L Hgb 7.5 L Hct 22.9 L MCV MCH MCHC RDW 18.4 H Lymph % (Auto) [place] % (Auto) Eos % (Auto) Lymph # [place] # Eos # Seg Neutrophils % Seg Neuts % (Manual) Lymphocytes % (Manual) Seg Neutrophils # Seg Neutrophils # Man Lymphocytes # (Manual) Eosinophils # (Manual) PT INR APTT D-Dimer Heparin Anti-Xa Level POC ABG pH POC ABG pCO2 POC ABG pO2 Sodium 150 H Potassium Chloride 115.6 H Carbon Dioxide BUN 38 H Creatinine Glucose 276 H POC Glucose 266 H Lactic Acid Calcium 7.9 L Magnesium AST Alkaline Phosphatase Total Creatine Kinase CK-MB (CK-2) Troponin T C-Reactive Protein Total Protein Albumin Cholesterol LDL Cholesterol Direct HDL Cholesterol Free T4 Urine WBC (Auto) Urine Creatinine Urine Total Protein Crossmatch 08/20/18 08/20/18 08/20/18 14:01 18:20 23:11 WBC RBC Hgb Hct MCV MCH MCHC RDW Lymph % (Auto) [place] % (Auto) Eos % (Auto) Lymph # [place] # Eos # Seg Neutrophils % Seg Neuts % (Manual) Lymphocytes % (Manual) Seg Neutrophils # Seg Neutrophils # Man Lymphocytes # (Manual) Eosinophils # (Manual) PT INR APTT D-Dimer Heparin Anti-Xa Level POC ABG pH POC ABG pCO2 POC ABG pO2 Sodium Potassium Chloride Carbon Dioxide BUN Creatinine Glucose POC Glucose 305 H 271 H 218 H Lactic Acid Calcium Magnesium AST Alkaline Phosphatase Total Creatine Kinase CK-MB (CK-2) Troponin T C-Reactive Protein Total Protein Albumin Cholesterol LDL Cholesterol Direct HDL Cholesterol Free T4 Urine WBC (Auto) Urine Creatinine Urine Total Protein Crossmatch 08/21/18 08/21/18 08/21/18 04:41 04:41 06:20 WBC RBC 2.65 L Hgb 7.6 L Hct 23.3 L MCV MCH MCHC RDW 19.1 H Lymph % (Auto) [place] % (Auto) Eos % (Auto) Lymph # [place] # Eos # Seg Neutrophils % Seg Neuts % (Manual) Lymphocytes % (Manual) Seg Neutrophils # Seg Neutrophils # Man Lymphocytes # (Manual) Eosinophils # (Manual) PT INR APTT D-Dimer Heparin Anti-Xa Level POC ABG pH POC ABG pCO2 POC ABG pO2 Sodium 150 H Potassium Chloride 117.8 H Carbon Dioxide BUN 37 H Creatinine Glucose 233 H POC Glucose 262 H Lactic Acid Calcium 7.9 L Magnesium AST Alkaline Phosphatase Total Creatine Kinase CK-MB (CK-2) Troponin T C-Reactive Protein Total Protein Albumin Cholesterol LDL Cholesterol Direct HDL Cholesterol Free T4 Urine WBC (Auto) Urine Creatinine Urine Total Protein Crossmatch 08/21/18 08/21/18 08/21/18 10:18 12:04 12:36 WBC RBC Hgb Hct MCV MCH MCHC RDW Lymph % (Auto) [place] % (Auto) Eos % (Auto) Lymph # [place] # Eos # Seg Neutrophils % Seg Neuts % (Manual) Lymphocytes % (Manual) Seg Neutrophils # Seg Neutrophils # Man Lymphocytes # (Manual) Eosinophils # (Manual) PT INR APTT D-Dimer Heparin Anti-Xa Level POC ABG pH POC ABG pCO2 POC ABG pO2 Sodium Potassium Chloride Carbon Dioxide BUN Creatinine Glucose POC Glucose 256 H 245 H 255 H Lactic Acid Calcium Magnesium AST Alkaline Phosphatase Total Creatine Kinase CK-MB (CK-2) Troponin T C-Reactive Protein Total Protein Albumin Cholesterol LDL Cholesterol Direct HDL Cholesterol Free T4 Urine WBC (Auto) Urine Creatinine Urine Total Protein Crossmatch 08/21/18 08/21/18 08/22/18 17:36 23:29 05:01 WBC RBC Hgb Hct MCV MCH MCHC RDW Lymph % (Auto) [place] % (Auto) Eos % (Auto) Lymph # [place] # Eos # Seg Neutrophils % Seg Neuts % (Manual) Lymphocytes % (Manual) Seg Neutrophils # Seg Neutrophils # Man Lymphocytes # (Manual) Eosinophils # (Manual) PT INR APTT D-Dimer Heparin Anti-Xa Level POC ABG pH 7.466 H POC ABG pCO2 33.8 L POC ABG pO2 111 H Sodium Potassium Chloride Carbon Dioxide BUN Creatinine Glucose POC Glucose 263 H 268 H Lactic Acid Calcium Magnesium AST Alkaline Phosphatase Total Creatine Kinase CK-MB (CK-2) Troponin T C-Reactive Protein Total Protein Albumin Cholesterol LDL Cholesterol Direct HDL Cholesterol Free T4 Urine WBC (Auto) Urine Creatinine Urine Total Protein Crossmatch 08/22/18 08/22/18 08/22/18 05:05 12:05 12:15 WBC RBC Hgb Hct MCV MCH MCHC RDW Lymph % (Auto) [place] % (Auto) Eos % (Auto) Lymph # [place] # Eos # Seg Neutrophils % Seg Neuts % (Manual) Lymphocytes % (Manual) Seg Neutrophils # Seg Neutrophils # Man Lymphocytes # (Manual) Eosinophils # (Manual) PT INR APTT D-Dimer Heparin Anti-Xa Level POC ABG pH POC ABG pCO2 POC ABG pO2 Sodium 147 H Potassium Chloride 113.2 H Carbon Dioxide BUN 36 H Creatinine Glucose 249 H POC Glucose 256 H 228 H Lactic Acid Calcium 8.2 L Magnesium AST Alkaline Phosphatase Total Creatine Kinase CK-MB (CK-2) Troponin T C-Reactive Protein Total Protein Albumin Cholesterol LDL Cholesterol Direct HDL Cholesterol Free T4 Urine WBC (Auto) Urine Creatinine Urine Total Protein Crossmatch 08/22/18 08/23/18 08/23/18 17:30 00:03 05:05 WBC RBC Hgb Hct MCV MCH MCHC RDW Lymph % (Auto) [place] % (Auto) Eos % (Auto) Lymph # [place] # Eos # Seg Neutrophils % Seg Neuts % (Manual) Lymphocytes % (Manual) Seg Neutrophils # Seg Neutrophils # Man Lymphocytes # (Manual) Eosinophils # (Manual) PT INR APTT D-Dimer Heparin Anti-Xa Level POC ABG pH POC ABG pCO2 POC ABG pO2 Sodium Potassium Chloride Carbon Dioxide BUN Creatinine Glucose POC Glucose 291 H 259 H 247 H Lactic Acid Calcium Magnesium AST Alkaline Phosphatase Total Creatine Kinase CK-MB (CK-2) Troponin T C-Reactive Protein Total Protein Albumin Cholesterol LDL Cholesterol Direct HDL Cholesterol Free T4 Urine WBC (Auto) Urine Creatinine Urine Total Protein Crossmatch 08/23/18 08/23/18 08/23/18 05:14 12:29 17:21 WBC RBC Hgb Hct MCV MCH MCHC RDW Lymph % (Auto) [place] % (Auto) Eos % (Auto) Lymph # [place] # Eos # Seg Neutrophils % Seg Neuts % (Manual) Lymphocytes % (Manual) Seg Neutrophils # Seg Neutrophils # Man Lymphocytes # (Manual) Eosinophils # (Manual) PT INR APTT D-Dimer Heparin Anti-Xa Level POC ABG pH POC ABG pCO2 POC ABG pO2 Sodium Potassium Chloride Carbon Dioxide BUN Creatinine Glucose POC Glucose 208 H 138 H 175 H Lactic Acid Calcium Magnesium AST Alkaline Phosphatase Total Creatine Kinase CK-MB (CK-2) Troponin T C-Reactive Protein Total Protein Albumin Cholesterol LDL Cholesterol Direct HDL Cholesterol Free T4 Urine WBC (Auto) Urine Creatinine Urine Total Protein Crossmatch 08/23/18 08/24/18 08/24/18 23:36 01:00 05:50 WBC RBC 2.92 L 2.90 L Hgb 8.3 L 8.2 L Hct 25.4 L 25.2 L MCV MCH MCHC RDW 18.9 H 18.6 H Lymph % (Auto) [place] % (Auto) 9.2 H Eos % (Auto) Lymph # [place] # Eos # Seg Neutrophils % Seg Neuts % (Manual) Lymphocytes % (Manual) Seg Neutrophils # Seg Neutrophils # Man Lymphocytes # (Manual) Eosinophils # (Manual) PT INR APTT D-Dimer Heparin Anti-Xa Level POC ABG pH POC ABG pCO2 POC ABG pO2 Sodium Potassium Chloride Carbon Dioxide BUN Creatinine Glucose POC Glucose 163 H Lactic Acid Calcium Magnesium AST Alkaline Phosphatase Total Creatine Kinase CK-MB (CK-2) Troponin T C-Reactive Protein Total Protein Albumin Cholesterol LDL Cholesterol Direct HDL Cholesterol Free T4 Urine WBC (Auto) Urine Creatinine Urine Total Protein Crossmatch 08/24/18 08/24/18 08/24/18 05:50 12:26 18:37 WBC RBC Hgb Hct MCV MCH MCHC RDW Lymph % (Auto) [place] % (Auto) Eos % (Auto) Lymph # [place] # Eos # Seg Neutrophils % Seg Neuts % (Manual) Lymphocytes % (Manual) Seg Neutrophils # Seg Neutrophils # Man Lymphocytes # (Manual) Eosinophils # (Manual) PT INR APTT D-Dimer Heparin Anti-Xa Level POC ABG pH POC ABG pCO2 POC ABG pO2 Sodium 147 H Potassium Chloride 113.6 H Carbon Dioxide BUN 33 H Creatinine Glucose 210 H POC Glucose 223 H 166 H Lactic Acid Calcium 8.3 L Magnesium AST Alkaline Phosphatase Total Creatine Kinase CK-MB (CK-2) Troponin T C-Reactive Protein Total Protein Albumin Cholesterol LDL Cholesterol Direct HDL Cholesterol Free T4 Urine WBC (Auto) Urine Creatinine Urine Total Protein Crossmatch 08/24/18 08/25/18 08/25/18 23:47 04:55 04:55 WBC RBC 2.94 L Hgb 8.4 L Hct 25.1 L MCV MCH MCHC RDW 18.2 H Lymph % (Auto) [place] % (Auto) Eos % (Auto) Lymph # [place] # Eos # Seg Neutrophils % Seg Neuts % (Manual) Lymphocytes % (Manual) Seg Neutrophils # Seg Neutrophils # Man Lymphocytes # (Manual) Eosinophils # (Manual) PT INR APTT D-Dimer Heparin Anti-Xa Level POC ABG pH POC ABG pCO2 POC ABG pO2 Sodium Potassium Chloride 110.2 H Carbon Dioxide BUN 30 H Creatinine Glucose POC Glucose 126 H Lactic Acid Calcium 8.1 L Magnesium AST Alkaline Phosphatase Total Creatine Kinase CK-MB (CK-2) Troponin T C-Reactive Protein Total Protein Albumin Cholesterol LDL Cholesterol Direct HDL Cholesterol Free T4 Urine WBC (Auto) Urine Creatinine Urine Total Protein Crossmatch 08/25/18 08/26/18 08/26/18 12:40 04:39 04:39 WBC RBC 2.96 L Hgb 8.3 L Hct 25.7 L MCV MCH MCHC RDW 18.2 H Lymph % (Auto) 10.5 L [place] % (Auto) 9.3 H Eos % (Auto) Lymph # 0.8 L [place] # Eos # Seg Neutrophils % 77.0 H Seg Neuts % (Manual) Lymphocytes % (Manual) Seg Neutrophils # Seg Neutrophils # Man Lymphocytes # (Manual) Eosinophils # (Manual) PT INR APTT D-Dimer Heparin Anti-Xa Level POC ABG pH POC ABG pCO2 POC ABG pO2 Sodium 147 H Potassium Chloride 113.5 H Carbon Dioxide BUN 27 H Creatinine 0.7 L Glucose 106 H POC Glucose Lactic Acid Calcium 8.0 L Magnesium AST Alkaline Phosphatase Total Creatine Kinase CK-MB (CK-2) Troponin T C-Reactive Protein Total Protein Albumin Cholesterol LDL Cholesterol Direct HDL Cholesterol Free T4 Urine WBC (Auto) > 182.0 H Urine Creatinine Urine Total Protein Crossmatch 08/26/18 08/26/18 08/26/18 05:27 09:00 09:54 WBC RBC Hgb Hct MCV MCH MCHC RDW Lymph % (Auto) [place] % (Auto) Eos % (Auto) Lymph # [place] # Eos # Seg Neutrophils % Seg Neuts % (Manual) Lymphocytes % (Manual) Seg Neutrophils # Seg Neutrophils # Man Lymphocytes # (Manual) Eosinophils # (Manual) PT INR APTT D-Dimer Heparin Anti-Xa Level POC ABG pH POC ABG pCO2 POC ABG pO2 Sodium Potassium Chloride Carbon Dioxide BUN Creatinine Glucose POC Glucose 120 H 170 H Lactic Acid Calcium Magnesium AST Alkaline Phosphatase Total Creatine Kinase CK-MB (CK-2) Troponin T C-Reactive Protein Total Protein Albumin Cholesterol LDL Cholesterol Direct HDL Cholesterol Free T4 0.51 L Urine WBC (Auto) Urine Creatinine Urine Total Protein Crossmatch 08/26/18 08/26/18 08/27/18 14:52 17:50 06:30 WBC RBC Hgb Hct MCV MCH MCHC RDW Lymph % (Auto) [place] % (Auto) Eos % (Auto) Lymph # [place] # Eos # Seg Neutrophils % Seg Neuts % (Manual) Lymphocytes % (Manual) Seg Neutrophils # Seg Neutrophils # Man Lymphocytes # (Manual) Eosinophils # (Manual) PT INR APTT D-Dimer Heparin Anti-Xa Level POC ABG pH POC ABG pCO2 POC ABG pO2 Sodium 150 H Potassium Chloride 114.8 H Carbon Dioxide BUN 24 H Creatinine 0.7 L Glucose 131 H POC Glucose 166 H 107 H Lactic Acid Calcium 7.8 L Magnesium AST Alkaline Phosphatase Total Creatine Kinase CK-MB (CK-2) Troponin T C-Reactive Protein Total Protein Albumin Cholesterol LDL Cholesterol Direct HDL Cholesterol Free T4 Urine WBC (Auto) Urine Creatinine Urine Total Protein Crossmatch 08/27/18 08/27/18 08/27/18 08:22 14:20 16:06 WBC RBC Hgb Hct MCV MCH MCHC RDW Lymph % (Auto) [place] % (Auto) Eos % (Auto) Lymph # [place] # Eos # Seg Neutrophils % Seg Neuts % (Manual) Lymphocytes % (Manual) Seg Neutrophils # Seg Neutrophils # Man Lymphocytes # (Manual) Eosinophils # (Manual) PT INR APTT D-Dimer Heparin Anti-Xa Level POC ABG pH POC ABG pCO2 POC ABG pO2 Sodium Potassium Chloride Carbon Dioxide BUN Creatinine Glucose POC Glucose 112 H 151 H 158 H Lactic Acid Calcium Magnesium AST Alkaline Phosphatase Total Creatine Kinase CK-MB (CK-2) Troponin T C-Reactive Protein Total Protein Albumin Cholesterol LDL Cholesterol Direct HDL Cholesterol Free T4 Urine WBC (Auto) Urine Creatinine Urine Total Protein Crossmatch 08/27/18 08/27/18 08/28/18 20:09 21:25 02:03 WBC RBC Hgb Hct MCV MCH MCHC RDW Lymph % (Auto) [place] % (Auto) Eos % (Auto) Lymph # [place] # Eos # Seg Neutrophils % Seg Neuts % (Manual) Lymphocytes % (Manual) Seg Neutrophils # Seg Neutrophils # Man Lymphocytes # (Manual) Eosinophils # (Manual) PT INR APTT D-Dimer Heparin Anti-Xa Level POC ABG pH POC ABG pCO2 POC ABG pO2 130 H Sodium Potassium Chloride Carbon Dioxide BUN Creatinine Glucose POC Glucose 226 H 250 H Lactic Acid Calcium Magnesium AST Alkaline Phosphatase Total Creatine Kinase CK-MB (CK-2) Troponin T C-Reactive Protein Total Protein Albumin Cholesterol LDL Cholesterol Direct HDL Cholesterol Free T4 Urine WBC (Auto) Urine Creatinine Urine Total Protein Crossmatch 08/28/18 08/28/18 08/28/18 05:56 07:15 13:17 WBC RBC Hgb Hct MCV MCH MCHC RDW Lymph % (Auto) [place] % (Auto) Eos % (Auto) Lymph # [place] # Eos # Seg Neutrophils % Seg Neuts % (Manual) Lymphocytes % (Manual) Seg Neutrophils # Seg Neutrophils # Man Lymphocytes # (Manual) Eosinophils # (Manual) PT INR APTT D-Dimer Heparin Anti-Xa Level POC ABG pH POC ABG pCO2 POC ABG pO2 Sodium Potassium Chloride Carbon Dioxide BUN Creatinine Glucose 198 H POC Glucose 221 H 188 H Lactic Acid Calcium 7.7 L Magnesium AST Alkaline Phosphatase Total Creatine Kinase CK-MB (CK-2) Troponin T C-Reactive Protein Total Protein Albumin Cholesterol LDL Cholesterol Direct HDL Cholesterol Free T4 Urine WBC (Auto) Urine Creatinine Urine Total Protein Crossmatch 08/28/18 08/28/18 08/28/18 15:53 18:12 22:35 WBC RBC Hgb Hct MCV MCH MCHC RDW Lymph % (Auto) [place] % (Auto) Eos % (Auto) Lymph # [place] # Eos # Seg Neutrophils % Seg Neuts % (Manual) Lymphocytes % (Manual) Seg Neutrophils # Seg Neutrophils # Man Lymphocytes # (Manual) Eosinophils # (Manual) PT INR APTT D-Dimer Heparin Anti-Xa Level POC ABG pH 7.457 H POC ABG pCO2 POC ABG pO2 Sodium Potassium Chloride Carbon Dioxide BUN Creatinine Glucose POC Glucose 197 H 225 H Lactic Acid Calcium Magnesium AST Alkaline Phosphatase Total Creatine Kinase CK-MB (CK-2) Troponin T C-Reactive Protein Total Protein Albumin Cholesterol LDL Cholesterol Direct HDL Cholesterol Free T4 Urine WBC (Auto) Urine Creatinine Urine Total Protein Crossmatch 08/29/18 08/29/18 08/29/18 03:04 10:47 14:25 WBC RBC Hgb Hct MCV MCH MCHC RDW Lymph % (Auto) [place] % (Auto) Eos % (Auto) Lymph # [place] # Eos # Seg Neutrophils % Seg Neuts % (Manual) Lymphocytes % (Manual) Seg Neutrophils # Seg Neutrophils # Man Lymphocytes # (Manual) Eosinophils # (Manual) PT INR APTT D-Dimer Heparin Anti-Xa Level POC ABG pH POC ABG pCO2 POC ABG pO2 Sodium Potassium Chloride Carbon Dioxide BUN Creatinine Glucose POC Glucose 223 H 371 H 266 H Lactic Acid Calcium Magnesium AST Alkaline Phosphatase Total Creatine Kinase CK-MB (CK-2) Troponin T C-Reactive Protein Total Protein Albumin Cholesterol LDL Cholesterol Direct HDL Cholesterol Free T4 Urine WBC (Auto) Urine Creatinine Urine Total Protein Crossmatch 08/29/18 08/29/18 08/29/18 16:45 17:36 21:33 WBC RBC Hgb Hct MCV MCH MCHC RDW Lymph % (Auto) [place] % (Auto) Eos % (Auto) Lymph # [place] # Eos # Seg Neutrophils % Seg Neuts % (Manual) Lymphocytes % (Manual) Seg Neutrophils # Seg Neutrophils # Man Lymphocytes # (Manual) Eosinophils # (Manual) PT INR APTT D-Dimer Heparin Anti-Xa Level POC ABG pH POC ABG pCO2 POC ABG pO2 118 H Sodium Potassium Chloride Carbon Dioxide BUN Creatinine Glucose POC Glucose 253 H 204 H Lactic Acid Calcium Magnesium AST Alkaline Phosphatase Total Creatine Kinase CK-MB (CK-2) Troponin T C-Reactive Protein Total Protein Albumin Cholesterol LDL Cholesterol Direct HDL Cholesterol Free T4 Urine WBC (Auto) Urine Creatinine Urine Total Protein Crossmatch 08/30/18 08/30/18 08/30/18 01:33 05:27 05:40 WBC RBC 3.12 L Hgb 8.5 L Hct 25.9 L MCV 83 L MCH 27 L MCHC RDW 18.3 H Lymph % (Auto) [place] % (Auto) 7.8 H Eos % (Auto) 8.8 H Lymph # [place] # Eos # 0.6 H Seg Neutrophils % Seg Neuts % (Manual) Lymphocytes % (Manual) Seg Neutrophils # Seg Neutrophils # Man Lymphocytes # (Manual) Eosinophils # (Manual) PT INR APTT D-Dimer Heparin Anti-Xa Level POC ABG pH POC ABG pCO2 POC ABG pO2 Sodium Potassium Chloride Carbon Dioxide BUN Creatinine Glucose POC Glucose 157 H 178 H Lactic Acid Calcium Magnesium AST Alkaline Phosphatase Total Creatine Kinase CK-MB (CK-2) Troponin T C-Reactive Protein Total Protein Albumin Cholesterol LDL Cholesterol Direct HDL Cholesterol Free T4 Urine WBC (Auto) Urine Creatinine Urine Total Protein Crossmatch 08/30/18 08/30/18 08/30/18 05:40 09:28 11:41 WBC RBC Hgb Hct MCV MCH MCHC RDW Lymph % (Auto) [place] % (Auto) Eos % (Auto) Lymph # [place] # Eos # Seg Neutrophils % Seg Neuts % (Manual) Lymphocytes % (Manual) Seg Neutrophils # Seg Neutrophils # Man Lymphocytes # (Manual) Eosinophils # (Manual) PT INR APTT D-Dimer Heparin Anti-Xa Level POC ABG pH POC ABG pCO2 POC ABG pO2 Sodium Potassium Chloride Carbon Dioxide BUN Creatinine 0.7 L Glucose 189 H POC Glucose 216 H 257 H Lactic Acid Calcium 8.2 L Magnesium AST 50 H Alkaline Phosphatase 158 H Total Creatine Kinase CK-MB (CK-2) Troponin T C-Reactive Protein Total Protein Albumin 1.6 L Cholesterol LDL Cholesterol Direct HDL Cholesterol Free T4 Urine WBC (Auto) Urine Creatinine Urine Total Protein Crossmatch 08/30/18 08/30/18 08/30/18 14:34 17:07 21:56 WBC RBC Hgb Hct MCV MCH MCHC RDW Lymph % (Auto) [place] % (Auto) Eos % (Auto) Lymph # [place] # Eos # Seg Neutrophils % Seg Neuts % (Manual) Lymphocytes % (Manual) Seg Neutrophils # Seg Neutrophils # Man Lymphocytes # (Manual) Eosinophils # (Manual) PT INR APTT D-Dimer Heparin Anti-Xa Level POC ABG pH POC ABG pCO2 POC ABG pO2 Sodium Potassium Chloride Carbon Dioxide BUN Creatinine Glucose POC Glucose 263 H 263 H 234 H Lactic Acid Calcium Magnesium AST Alkaline Phosphatase Total Creatine Kinase CK-MB (CK-2) Troponin T C-Reactive Protein Total Protein Albumin Cholesterol LDL Cholesterol Direct HDL Cholesterol Free T4 Urine WBC (Auto) Urine Creatinine Urine Total Protein Crossmatch 08/31/18 08/31/18 08/31/18 02:02 05:29 09:24 WBC RBC Hgb Hct MCV MCH MCHC RDW Lymph % (Auto) [place] % (Auto) Eos % (Auto) Lymph # [place] # Eos # Seg Neutrophils % Seg Neuts % (Manual) Lymphocytes % (Manual) Seg Neutrophils # Seg Neutrophils # Man Lymphocytes # (Manual) Eosinophils # (Manual) PT INR APTT D-Dimer Heparin Anti-Xa Level POC ABG pH POC ABG pCO2 POC ABG pO2 Sodium Potassium Chloride Carbon Dioxide BUN Creatinine Glucose POC Glucose 151 H 156 H 107 H Lactic Acid Calcium Magnesium AST Alkaline Phosphatase Total Creatine Kinase CK-MB (CK-2) Troponin T C-Reactive Protein Total Protein Albumin Cholesterol LDL Cholesterol Direct HDL Cholesterol Free T4 Urine WBC (Auto) Urine Creatinine Urine Total Protein Crossmatch 08/31/18 08/31/18 08/31/18 13:51 17:28 21:40 WBC RBC Hgb Hct MCV MCH MCHC RDW Lymph % (Auto) [place] % (Auto) Eos % (Auto) Lymph # [place] # Eos # Seg Neutrophils % Seg Neuts % (Manual) Lymphocytes % (Manual) Seg Neutrophils # Seg Neutrophils # Man Lymphocytes # (Manual) Eosinophils # (Manual) PT INR APTT D-Dimer Heparin Anti-Xa Level POC ABG pH POC ABG pCO2 POC ABG pO2 Sodium Potassium Chloride Carbon Dioxide BUN Creatinine Glucose POC Glucose 170 H 239 H 209 H Lactic Acid Calcium Magnesium AST Alkaline Phosphatase Total Creatine Kinase CK-MB (CK-2) Troponin T C-Reactive Protein Total Protein Albumin Cholesterol LDL Cholesterol Direct HDL Cholesterol Free T4 Urine WBC (Auto) Urine Creatinine Urine Total Protein Crossmatch 08/31/18 08/31/18 09/01/18 22:25 22:25 01:47 WBC RBC Hgb Hct MCV MCH MCHC RDW Lymph % (Auto) [place] % (Auto) Eos % (Auto) Lymph # [place] # Eos # Seg Neutrophils % Seg Neuts % (Manual) Lymphocytes % (Manual) Seg Neutrophils # Seg Neutrophils # Man Lymphocytes # (Manual) Eosinophils # (Manual) PT INR APTT D-Dimer Heparin Anti-Xa Level POC ABG pH POC ABG pCO2 45.6 H POC ABG pO2 135 H Sodium Potassium Chloride Carbon Dioxide BUN Creatinine Glucose POC Glucose 208 H 223 H Lactic Acid Calcium Magnesium AST Alkaline Phosphatase Total Creatine Kinase CK-MB (CK-2) Troponin T C-Reactive Protein Total Protein Albumin Cholesterol LDL Cholesterol Direct HDL Cholesterol Free T4 Urine WBC (Auto) Urine Creatinine Urine Total Protein Crossmatch 09/01/18 09/01/18 09/01/18 05:18 05:19 05:19 WBC RBC 3.08 L Hgb 8.5 L Hct 25.6 L MCV 83 L MCH MCHC RDW 18.7 H Lymph % (Auto) [place] % (Auto) 7.9 H Eos % (Auto) 6.1 H Lymph # [place] # Eos # Seg Neutrophils % Seg Neuts % (Manual) Lymphocytes % (Manual) Seg Neutrophils # Seg Neutrophils # Man Lymphocytes # (Manual) Eosinophils # (Manual) PT INR APTT D-Dimer Heparin Anti-Xa Level POC ABG pH POC ABG pCO2 POC ABG pO2 Sodium Potassium Chloride 107.9 H Carbon Dioxide BUN 21 H Creatinine 0.7 L Glucose 188 H POC Glucose 236 H Lactic Acid Calcium Magnesium AST Alkaline Phosphatase Total Creatine Kinase CK-MB (CK-2) Troponin T C-Reactive Protein Total Protein Albumin Cholesterol LDL Cholesterol Direct HDL Cholesterol Free T4 Urine WBC (Auto) Urine Creatinine Urine Total Protein Crossmatch 09/01/18 09/01/18 09/01/18 09:29 14:25 18:20 WBC RBC Hgb Hct MCV MCH MCHC RDW Lymph % (Auto) [place] % (Auto) Eos % (Auto) Lymph # [place] # Eos # Seg Neutrophils % Seg Neuts % (Manual) Lymphocytes % (Manual) Seg Neutrophils # Seg Neutrophils # Man Lymphocytes # (Manual) Eosinophils # (Manual) PT INR APTT D-Dimer Heparin Anti-Xa Level POC ABG pH POC ABG pCO2 POC ABG pO2 Sodium Potassium Chloride Carbon Dioxide BUN Creatinine Glucose POC Glucose 231 H 294 H 215 H Lactic Acid Calcium Magnesium AST Alkaline Phosphatase Total Creatine Kinase CK-MB (CK-2) Troponin T C-Reactive Protein Total Protein Albumin Cholesterol LDL Cholesterol Direct HDL Cholesterol Free T4 Urine WBC (Auto) Urine Creatinine Urine Total Protein Crossmatch 09/01/18 09/02/18 09/02/18 21:21 03:28 05:25 WBC RBC Hgb Hct MCV MCH MCHC RDW Lymph % (Auto) [place] % (Auto) Eos % (Auto) Lymph # [place] # Eos # Seg Neutrophils % Seg Neuts % (Manual) Lymphocytes % (Manual) Seg Neutrophils # Seg Neutrophils # Man Lymphocytes # (Manual) Eosinophils # (Manual) PT INR APTT D-Dimer Heparin Anti-Xa Level POC ABG pH POC ABG pCO2 POC ABG pO2 Sodium Potassium Chloride Carbon Dioxide BUN Creatinine Glucose POC Glucose 236 H 194 H 183 H Lactic Acid Calcium Magnesium AST Alkaline Phosphatase Total Creatine Kinase CK-MB (CK-2) Troponin T C-Reactive Protein Total Protein Albumin Cholesterol LDL Cholesterol Direct HDL Cholesterol Free T4 Urine WBC (Auto) Urine Creatinine Urine Total Protein Crossmatch 09/02/18 09/02/18 09/02/18 09:16 15:30 17:20 WBC RBC Hgb Hct MCV MCH MCHC RDW Lymph % (Auto) [place] % (Auto) Eos % (Auto) Lymph # [place] # Eos # Seg Neutrophils % Seg Neuts % (Manual) Lymphocytes % (Manual) Seg Neutrophils # Seg Neutrophils # Man Lymphocytes # (Manual) Eosinophils # (Manual) PT INR APTT D-Dimer Heparin Anti-Xa Level POC ABG pH POC ABG pCO2 POC ABG pO2 Sodium Potassium Chloride Carbon Dioxide BUN Creatinine Glucose POC Glucose 251 H 303 H 316 H Lactic Acid Calcium Magnesium AST Alkaline Phosphatase Total Creatine Kinase CK-MB (CK-2) Troponin T C-Reactive Protein Total Protein Albumin Cholesterol LDL Cholesterol Direct HDL Cholesterol Free T4 Urine WBC (Auto) Urine Creatinine Urine Total Protein Crossmatch 09/02/18 09/03/18 09/03/18 21:25 03:32 05:20 WBC RBC Hgb Hct MCV MCH MCHC RDW Lymph % (Auto) [place] % (Auto) Eos % (Auto) Lymph # [place] # Eos # Seg Neutrophils % Seg Neuts % (Manual) Lymphocytes % (Manual) Seg Neutrophils # Seg Neutrophils # Man Lymphocytes # (Manual) Eosinophils # (Manual) PT INR APTT D-Dimer Heparin Anti-Xa Level POC ABG pH POC ABG pCO2 POC ABG pO2 Sodium Potassium Chloride Carbon Dioxide BUN Creatinine Glucose POC Glucose 242 H 305 H 225 H Lactic Acid Calcium Magnesium AST Alkaline Phosphatase Total Creatine Kinase CK-MB (CK-2) Troponin T C-Reactive Protein Total Protein Albumin Cholesterol LDL Cholesterol Direct HDL Cholesterol Free T4 Urine WBC (Auto) Urine Creatinine Urine Total Protein Crossmatch 09/03/18 09/03/18 09/03/18 07:52 07:52 10:19 WBC RBC 3.29 L Hgb 9.0 L Hct 27.3 L MCV 83 L MCH 27 L MCHC RDW 18.4 H Lymph % (Auto) [place] % (Auto) Eos % (Auto) Lymph # [place] # Eos # Seg Neutrophils % Seg Neuts % (Manual) Lymphocytes % (Manual) Seg Neutrophils # Seg Neutrophils # Man Lymphocytes # (Manual) Eosinophils # (Manual) PT INR APTT D-Dimer Heparin Anti-Xa Level POC ABG pH POC ABG pCO2 POC ABG pO2 Sodium Potassium Chloride Carbon Dioxide BUN 23 H Creatinine Glucose 205 H POC Glucose 228 H Lactic Acid Calcium 7.9 L Magnesium AST Alkaline Phosphatase Total Creatine Kinase CK-MB (CK-2) Troponin T C-Reactive Protein Total Protein Albumin Cholesterol LDL Cholesterol Direct HDL Cholesterol Free T4 Urine WBC (Auto) Urine Creatinine Urine Total Protein Crossmatch 09/03/18 09/03/18 09/03/18 13:42 17:22 21:33 WBC RBC Hgb Hct MCV MCH MCHC RDW Lymph % (Auto) [place] % (Auto) Eos % (Auto) Lymph # [place] # Eos # Seg Neutrophils % Seg Neuts % (Manual) Lymphocytes % (Manual) Seg Neutrophils # Seg Neutrophils # Man Lymphocytes # (Manual) Eosinophils # (Manual) PT INR APTT D-Dimer Heparin Anti-Xa Level POC ABG pH POC ABG pCO2 POC ABG pO2 Sodium Potassium Chloride Carbon Dioxide BUN Creatinine Glucose POC Glucose 221 H 186 H 179 H Lactic Acid Calcium Magnesium AST Alkaline Phosphatase Total Creatine Kinase CK-MB (CK-2) Troponin T C-Reactive Protein Total Protein Albumin Cholesterol LDL Cholesterol Direct HDL Cholesterol Free T4 Urine WBC (Auto) Urine Creatinine Urine Total Protein Crossmatch 09/04/18 09/04/18 09/04/18 02:07 05:54 11:03 WBC RBC Hgb Hct MCV MCH MCHC RDW Lymph % (Auto) [place] % (Auto) Eos % (Auto) Lymph # [place] # Eos # Seg Neutrophils % Seg Neuts % (Manual) Lymphocytes % (Manual) Seg Neutrophils # Seg Neutrophils # Man Lymphocytes # (Manual) Eosinophils # (Manual) PT INR APTT D-Dimer Heparin Anti-Xa Level POC ABG pH POC ABG pCO2 POC ABG pO2 Sodium Potassium Chloride Carbon Dioxide BUN Creatinine Glucose POC Glucose 174 H 171 H 181 H Lactic Acid Calcium Magnesium AST Alkaline Phosphatase Total Creatine Kinase CK-MB (CK-2) Troponin T C-Reactive Protein Total Protein Albumin Cholesterol LDL Cholesterol Direct HDL Cholesterol Free T4 Urine WBC (Auto) Urine Creatinine Urine Total Protein Crossmatch 09/04/18 09/04/18 09/04/18 14:59 18:24 21:50 WBC RBC Hgb Hct MCV MCH MCHC RDW Lymph % (Auto) [place] % (Auto) Eos % (Auto) Lymph # [place] # Eos # Seg Neutrophils % Seg Neuts % (Manual) Lymphocytes % (Manual) Seg Neutrophils # Seg Neutrophils # Man Lymphocytes # (Manual) Eosinophils # (Manual) PT INR APTT D-Dimer Heparin Anti-Xa Level POC ABG pH POC ABG pCO2 POC ABG pO2 Sodium Potassium Chloride Carbon Dioxide BUN Creatinine Glucose POC Glucose 204 H 236 H 197 H Lactic Acid Calcium Magnesium AST Alkaline Phosphatase Total Creatine Kinase CK-MB (CK-2) Troponin T C-Reactive Protein Total Protein Albumin Cholesterol LDL Cholesterol Direct HDL Cholesterol Free T4 Urine WBC (Auto) Urine Creatinine Urine Total Protein Crossmatch 09/05/18 09/05/18 09/05/18 01:32 04:52 04:52 WBC RBC 3.16 L Hgb 8.7 L Hct 26.0 L MCV 82 L MCH MCHC RDW 18.9 H Lymph % (Auto) [place] % (Auto) Eos % (Auto) Lymph # [place] # Eos # Seg Neutrophils % Seg Neuts % (Manual) Lymphocytes % (Manual) Seg Neutrophils # Seg Neutrophils # Man Lymphocytes # (Manual) Eosinophils # (Manual) PT INR APTT D-Dimer Heparin Anti-Xa Level POC ABG pH POC ABG pCO2 POC ABG pO2 Sodium Potassium Chloride 107.2 H Carbon Dioxide BUN 23 H Creatinine 0.7 L Glucose 215 H POC Glucose 210 H Lactic Acid Calcium 8.3 L Magnesium AST Alkaline Phosphatase Total Creatine Kinase CK-MB (CK-2) Troponin T C-Reactive Protein Total Protein Albumin Cholesterol LDL Cholesterol Direct HDL Cholesterol Free T4 Urine WBC (Auto) Urine Creatinine Urine Total Protein Crossmatch 09/05/18 09/05/18 09/05/18 05:36 10:26 13:11 WBC RBC Hgb Hct MCV MCH MCHC RDW Lymph % (Auto) [place] % (Auto) Eos % (Auto) Lymph # [place] # Eos # Seg Neutrophils % Seg Neuts % (Manual) Lymphocytes % (Manual) Seg Neutrophils # Seg Neutrophils # Man Lymphocytes # (Manual) Eosinophils # (Manual) PT INR APTT D-Dimer Heparin Anti-Xa Level POC ABG pH POC ABG pCO2 POC ABG pO2 Sodium Potassium Chloride Carbon Dioxide BUN Creatinine Glucose POC Glucose 216 H 206 H 161 H Lactic Acid Calcium Magnesium AST Alkaline Phosphatase Total Creatine Kinase CK-MB (CK-2) Troponin T C-Reactive Protein Total Protein Albumin Cholesterol LDL Cholesterol Direct HDL Cholesterol Free T4 Urine WBC (Auto) Urine Creatinine Urine Total Protein Crossmatch 09/05/18 09/05/18 09/05/18 18:27 18:32 22:05 WBC RBC Hgb Hct MCV MCH MCHC RDW Lymph % (Auto) [place] % (Auto) Eos % (Auto) Lymph # [place] # Eos # Seg Neutrophils % Seg Neuts % (Manual) Lymphocytes % (Manual) Seg Neutrophils # Seg Neutrophils # Man Lymphocytes # (Manual) Eosinophils # (Manual) PT INR APTT D-Dimer Heparin Anti-Xa Level POC ABG pH 7.478 H POC ABG pCO2 POC ABG pO2 138 H Sodium Potassium Chloride Carbon Dioxide BUN Creatinine Glucose POC Glucose 154 H 149 H Lactic Acid Calcium Magnesium AST Alkaline Phosphatase Total Creatine Kinase CK-MB (CK-2) Troponin T C-Reactive Protein Total Protein Albumin Cholesterol LDL Cholesterol Direct HDL Cholesterol Free T4 Urine WBC (Auto) Urine Creatinine Urine Total Protein Crossmatch 09/06/18 09/06/18 09/06/18 04:40 08:30 10:06 WBC RBC Hgb Hct MCV MCH MCHC RDW Lymph % (Auto) [place] % (Auto) Eos % (Auto) Lymph # [place] # Eos # Seg Neutrophils % Seg Neuts % (Manual) Lymphocytes % (Manual) Seg Neutrophils # Seg Neutrophils # Man Lymphocytes # (Manual) Eosinophils # (Manual) PT INR APTT D-Dimer Heparin Anti-Xa Level POC ABG pH POC ABG pCO2 POC ABG pO2 Sodium Potassium Chloride Carbon Dioxide BUN Creatinine Glucose POC Glucose 140 H 188 H 199 H Lactic Acid Calcium Magnesium AST Alkaline Phosphatase Total Creatine Kinase CK-MB (CK-2) Troponin T C-Reactive Protein Total Protein Albumin Cholesterol LDL Cholesterol Direct HDL Cholesterol Free T4 Urine WBC (Auto) Urine Creatinine Urine Total Protein Crossmatch 09/06/18 09/06/18 09/06/18 12:13 14:23 17:11 WBC RBC Hgb Hct MCV MCH MCHC RDW Lymph % (Auto) [place] % (Auto) Eos % (Auto) Lymph # [place] # Eos # Seg Neutrophils % Seg Neuts % (Manual) Lymphocytes % (Manual) Seg Neutrophils # Seg Neutrophils # Man Lymphocytes # (Manual) Eosinophils # (Manual) PT INR APTT D-Dimer Heparin Anti-Xa Level POC ABG pH POC ABG pCO2 POC ABG pO2 Sodium Potassium Chloride Carbon Dioxide BUN Creatinine Glucose POC Glucose 177 H 180 H 216 H Lactic Acid Calcium Magnesium AST Alkaline Phosphatase Total Creatine Kinase CK-MB (CK-2) Troponin T C-Reactive Protein Total Protein Albumin Cholesterol LDL Cholesterol Direct HDL Cholesterol Free T4 Urine WBC (Auto) Urine Creatinine Urine Total Protein Crossmatch 09/06/18 09/07/18 09/07/18 21:47 02:02 04:55 WBC RBC 3.08 L Hgb 8.5 L Hct 25.2 L MCV 82 L MCH MCHC RDW 18.8 H Lymph % (Auto) [place] % (Auto) Eos % (Auto) Lymph # 0.8 L [place] # Eos # Seg Neutrophils % 84.8 H Seg Neuts % (Manual) Lymphocytes % (Manual) Seg Neutrophils # Seg Neutrophils # Man Lymphocytes # (Manual) Eosinophils # (Manual) PT INR APTT D-Dimer Heparin Anti-Xa Level POC ABG pH POC ABG pCO2 POC ABG pO2 Sodium Potassium Chloride Carbon Dioxide BUN Creatinine Glucose POC Glucose 275 H 291 H Lactic Acid Calcium Magnesium AST Alkaline Phosphatase Total Creatine Kinase CK-MB (CK-2) Troponin T C-Reactive Protein Total Protein Albumin Cholesterol LDL Cholesterol Direct HDL Cholesterol Free T4 Urine WBC (Auto) Urine Creatinine Urine Total Protein Crossmatch 09/07/18 09/07/18 09/07/18 04:55 06:02 10:27 WBC RBC Hgb Hct MCV MCH MCHC RDW Lymph % (Auto) [place] % (Auto) Eos % (Auto) Lymph # [place] # Eos # Seg Neutrophils % Seg Neuts % (Manual) Lymphocytes % (Manual) Seg Neutrophils # Seg Neutrophils # Man Lymphocytes # (Manual) Eosinophils # (Manual) PT INR APTT D-Dimer Heparin Anti-Xa Level POC ABG pH POC ABG pCO2 POC ABG pO2 Sodium Potassium Chloride Carbon Dioxide BUN 30 H Creatinine 0.7 L Glucose 291 H POC Glucose 320 H 365 H Lactic Acid Calcium Magnesium AST Alkaline Phosphatase Total Creatine Kinase CK-MB (CK-2) Troponin T C-Reactive Protein Total Protein Albumin Cholesterol LDL Cholesterol Direct HDL Cholesterol Free T4 Urine WBC (Auto) Urine Creatinine Urine Total Protein Crossmatch 09/07/18 09/07/18 09/07/18 13:52 17:12 21:29 WBC RBC Hgb Hct MCV MCH MCHC RDW Lymph % (Auto) [place] % (Auto) Eos % (Auto) Lymph # [place] # Eos # Seg Neutrophils % Seg Neuts % (Manual) Lymphocytes % (Manual) Seg Neutrophils # Seg Neutrophils # Man Lymphocytes # (Manual) Eosinophils # (Manual) PT INR APTT D-Dimer Heparin Anti-Xa Level POC ABG pH POC ABG pCO2 POC ABG pO2 Sodium Potassium Chloride Carbon Dioxide BUN Creatinine Glucose POC Glucose 364 H 338 H 242 H Lactic Acid Calcium Magnesium AST Alkaline Phosphatase Total Creatine Kinase CK-MB (CK-2) Troponin T C-Reactive Protein Total Protein Albumin Cholesterol LDL Cholesterol Direct HDL Cholesterol Free T4 Urine WBC (Auto) Urine Creatinine Urine Total Protein Crossmatch 09/07/18 09/08/18 09/08/18 22:24 02:02 04:22 WBC 14.8 H RBC 3.15 L Hgb 8.5 L Hct 26.3 L MCV 83 L MCH 27 L MCHC RDW 19.6 H Lymph % (Auto) [place] % (Auto) Eos % (Auto) Lymph # [place] # Eos # Seg Neutrophils % Seg Neuts % (Manual) Lymphocytes % (Manual) Seg Neutrophils # Seg Neutrophils # Man Lymphocytes # (Manual) Eosinophils # (Manual) PT INR APTT D-Dimer Heparin Anti-Xa Level POC ABG pH 7.484 H POC ABG pCO2 POC ABG pO2 61 L Sodium Potassium Chloride Carbon Dioxide BUN Creatinine Glucose POC Glucose 324 H Lactic Acid Calcium Magnesium AST Alkaline Phosphatase Total Creatine Kinase CK-MB (CK-2) Troponin T C-Reactive Protein Total Protein Albumin Cholesterol LDL Cholesterol Direct HDL Cholesterol Free T4 Urine WBC (Auto) Urine Creatinine Urine Total Protein Crossmatch 09/08/18 09/08/18 09/08/18 04:22 05:33 09:40 WBC RBC Hgb Hct MCV MCH MCHC RDW Lymph % (Auto) [place] % (Auto) Eos % (Auto) Lymph # [place] # Eos # Seg Neutrophils % Seg Neuts % (Manual) Lymphocytes % (Manual) Seg Neutrophils # Seg Neutrophils # Man Lymphocytes # (Manual) Eosinophils # (Manual) PT INR APTT D-Dimer Heparin Anti-Xa Level POC ABG pH POC ABG pCO2 POC ABG pO2 Sodium Potassium Chloride Carbon Dioxide BUN 39 H Creatinine Glucose 320 H POC Glucose 324 H 329 H Lactic Acid Calcium 8.3 L Magnesium AST Alkaline Phosphatase Total Creatine Kinase CK-MB (CK-2) Troponin T C-Reactive Protein Total Protein Albumin Cholesterol LDL Cholesterol Direct HDL Cholesterol Free T4 Urine WBC (Auto) Urine Creatinine Urine Total Protein Crossmatch 09/08/18 09/08/18 09/08/18 13:11 18:02 21:27 WBC RBC Hgb Hct MCV MCH MCHC RDW Lymph % (Auto) [place] % (Auto) Eos % (Auto) Lymph # [place] # Eos # Seg Neutrophils % Seg Neuts % (Manual) Lymphocytes % (Manual) Seg Neutrophils # Seg Neutrophils # Man Lymphocytes # (Manual) Eosinophils # (Manual) PT INR APTT D-Dimer Heparin Anti-Xa Level POC ABG pH POC ABG pCO2 POC ABG pO2 Sodium Potassium Chloride Carbon Dioxide BUN Creatinine Glucose POC Glucose 369 H 331 H 304 H Lactic Acid Calcium Magnesium AST Alkaline Phosphatase Total Creatine Kinase CK-MB (CK-2) Troponin T C-Reactive Protein Total Protein Albumin Cholesterol LDL Cholesterol Direct HDL Cholesterol Free T4 Urine WBC (Auto) Urine Creatinine Urine Total Protein Crossmatch 09/09/18 09/09/18 09/09/18 02:03 05:29 09:20 WBC RBC Hgb Hct MCV MCH MCHC RDW Lymph % (Auto) [place] % (Auto) Eos % (Auto) Lymph # [place] # Eos # Seg Neutrophils % Seg Neuts % (Manual) Lymphocytes % (Manual) Seg Neutrophils # Seg Neutrophils # Man Lymphocytes # (Manual) Eosinophils # (Manual) PT INR APTT D-Dimer Heparin Anti-Xa Level POC ABG pH POC ABG pCO2 POC ABG pO2 Sodium Potassium Chloride Carbon Dioxide BUN Creatinine Glucose POC Glucose 361 H 204 H 292 H Lactic Acid Calcium Magnesium AST Alkaline Phosphatase Total Creatine Kinase CK-MB (CK-2) Troponin T C-Reactive Protein Total Protein Albumin Cholesterol LDL Cholesterol Direct HDL Cholesterol Free T4 Urine WBC (Auto) Urine Creatinine Urine Total Protein Crossmatch 09/09/18 09/09/18 09/09/18 14:20 15:04 18:08 WBC RBC Hgb Hct MCV MCH MCHC RDW Lymph % (Auto) [place] % (Auto) Eos % (Auto) Lymph # [place] # Eos # Seg Neutrophils % Seg Neuts % (Manual) Lymphocytes % (Manual) Seg Neutrophils # Seg Neutrophils # Man Lymphocytes # (Manual) Eosinophils # (Manual) PT INR APTT D-Dimer Heparin Anti-Xa Level POC ABG pH 7.464 H POC ABG pCO2 POC ABG pO2 109 H Sodium Potassium Chloride Carbon Dioxide BUN Creatinine Glucose POC Glucose 253 H 196 H Lactic Acid Calcium Magnesium AST Alkaline Phosphatase Total Creatine Kinase CK-MB (CK-2) Troponin T C-Reactive Protein Total Protein Albumin Cholesterol LDL Cholesterol Direct HDL Cholesterol Free T4 Urine WBC (Auto) Urine Creatinine Urine Total Protein Crossmatch 09/09/18 09/10/18 09/10/18 22:23 02:32 06:10 WBC RBC Hgb Hct MCV MCH MCHC RDW Lymph % (Auto) [place] % (Auto) Eos % (Auto) Lymph # [place] # Eos # Seg Neutrophils % Seg Neuts % (Manual) Lymphocytes % (Manual) Seg Neutrophils # Seg Neutrophils # Man Lymphocytes # (Manual) Eosinophils # (Manual) PT INR APTT D-Dimer Heparin Anti-Xa Level POC ABG pH POC ABG pCO2 POC ABG pO2 Sodium Potassium Chloride Carbon Dioxide BUN Creatinine Glucose POC Glucose 245 H 238 H 250 H Lactic Acid Calcium Magnesium AST Alkaline Phosphatase Total Creatine Kinase CK-MB (CK-2) Troponin T C-Reactive Protein Total Protein Albumin Cholesterol LDL Cholesterol Direct HDL Cholesterol Free T4 Urine WBC (Auto) Urine Creatinine Urine Total Protein Crossmatch 09/10/18 09/10/18 09/10/18 08:16 11:35 21:18 WBC RBC Hgb Hct MCV MCH MCHC RDW Lymph % (Auto) [place] % (Auto) Eos % (Auto) Lymph # [place] # Eos # Seg Neutrophils % Seg Neuts % (Manual) Lymphocytes % (Manual) Seg Neutrophils # Seg Neutrophils # Man Lymphocytes # (Manual) Eosinophils # (Manual) PT INR APTT D-Dimer Heparin Anti-Xa Level POC ABG pH POC ABG pCO2 POC ABG pO2 Sodium Potassium Chloride Carbon Dioxide BUN Creatinine Glucose POC Glucose 232 H 267 H 270 H Lactic Acid Calcium Magnesium AST Alkaline Phosphatase Total Creatine Kinase CK-MB (CK-2) Troponin T C-Reactive Protein Total Protein Albumin Cholesterol LDL Cholesterol Direct HDL Cholesterol Free T4 Urine WBC (Auto) Urine Creatinine Urine Total Protein Crossmatch 09/11/18 09/11/18 09/11/18 06:21 07:49 12:02 WBC RBC Hgb Hct MCV MCH MCHC RDW Lymph % (Auto) [place] % (Auto) Eos % (Auto) Lymph # [place] # Eos # Seg Neutrophils % Seg Neuts % (Manual) Lymphocytes % (Manual) Seg Neutrophils # Seg Neutrophils # Man Lymphocytes # (Manual) Eosinophils # (Manual) PT INR APTT D-Dimer Heparin Anti-Xa Level POC ABG pH POC ABG pCO2 POC ABG pO2 Sodium Potassium Chloride Carbon Dioxide BUN Creatinine Glucose POC Glucose 255 H 233 H 200 H Lactic Acid Calcium Magnesium AST Alkaline Phosphatase Total Creatine Kinase CK-MB (CK-2) Troponin T C-Reactive Protein Total Protein Albumin Cholesterol LDL Cholesterol Direct HDL Cholesterol Free T4 Urine WBC (Auto) Urine Creatinine Urine Total Protein Crossmatch 09/11/18 09/11/18 09/11/18 16:35 21:09 22:33 WBC 12.1 H RBC 3.16 L Hgb 8.5 L Hct 26.2 L MCV 83 L MCH 27 L MCHC RDW 20.7 H Lymph % (Auto) [place] % (Auto) Eos % (Auto) Lymph # [place] # Eos # Seg Neutrophils % Seg Neuts % (Manual) 77.0 H Lymphocytes % (Manual) 13.0 L Seg Neutrophils # Seg Neutrophils # Man 9.3 H Lymphocytes # (Manual) Eosinophils # (Manual) 0.5 H PT INR APTT D-Dimer Heparin Anti-Xa Level POC ABG pH POC ABG pCO2 POC ABG pO2 Sodium Potassium Chloride Carbon Dioxide BUN Creatinine Glucose POC Glucose 210 H 256 H Lactic Acid Calcium Magnesium AST Alkaline Phosphatase Total Creatine Kinase CK-MB (CK-2) Troponin T C-Reactive Protein Total Protein Albumin Cholesterol LDL Cholesterol Direct HDL Cholesterol Free T4 Urine WBC (Auto) Urine Creatinine Urine Total Protein Crossmatch 09/11/18 09/12/18 09/12/18 23:59 05:07 05:07 WBC RBC 2.89 L Hgb 7.9 L Hct 23.9 L MCV 83 L MCH 27 L MCHC RDW 20.1 H Lymph % (Auto) [place] % (Auto) 7.8 H Eos % (Auto) Lymph # [place] # 0.9 H Eos # Seg Neutrophils % 70.2 H Seg Neuts % (Manual) Lymphocytes % (Manual) Seg Neutrophils # Seg Neutrophils # Man Lymphocytes # (Manual) Eosinophils # (Manual) PT INR APTT D-Dimer Heparin Anti-Xa Level POC ABG pH POC ABG pCO2 POC ABG pO2 Sodium 149 H D Potassium 3.5 L Chloride 110.6 H Carbon Dioxide BUN 32 H Creatinine Glucose 222 H POC Glucose 267 H Lactic Acid Calcium 8.2 L Magnesium AST Alkaline Phosphatase Total Creatine Kinase CK-MB (CK-2) Troponin T C-Reactive Protein Total Protein Albumin Cholesterol LDL Cholesterol Direct HDL Cholesterol Free T4 Urine WBC (Auto) Urine Creatinine Urine Total Protein Crossmatch 09/12/18 09/12/18 09/12/18 05:36 07:22 11:18 WBC RBC Hgb Hct MCV MCH MCHC RDW Lymph % (Auto) [place] % (Auto) Eos % (Auto) Lymph # [place] # Eos # Seg Neutrophils % Seg Neuts % (Manual) Lymphocytes % (Manual) Seg Neutrophils # Seg Neutrophils # Man Lymphocytes # (Manual) Eosinophils # (Manual) PT INR APTT D-Dimer Heparin Anti-Xa Level POC ABG pH POC ABG pCO2 POC ABG pO2 Sodium Potassium Chloride Carbon Dioxide BUN Creatinine Glucose POC Glucose 251 H 210 H 202 H Lactic Acid Calcium Magnesium AST Alkaline Phosphatase Total Creatine Kinase CK-MB (CK-2) Troponin T C-Reactive Protein Total Protein Albumin Cholesterol LDL Cholesterol Direct HDL Cholesterol Free T4 Urine WBC (Auto) Urine Creatinine Urine Total Protein Crossmatch 09/12/18 09/12/18 09/12/18 16:12 18:24 22:09 WBC RBC Hgb Hct MCV MCH MCHC RDW Lymph % (Auto) [place] % (Auto) Eos % (Auto) Lymph # [place] # Eos # Seg Neutrophils % Seg Neuts % (Manual) Lymphocytes % (Manual) Seg Neutrophils # Seg Neutrophils # Man Lymphocytes # (Manual) Eosinophils # (Manual) PT INR APTT D-Dimer Heparin Anti-Xa Level POC ABG pH POC ABG pCO2 POC ABG pO2 Sodium Potassium Chloride Carbon Dioxide BUN Creatinine Glucose POC Glucose 209 H 212 H 173 H Lactic Acid Calcium Magnesium AST Alkaline Phosphatase Total Creatine Kinase CK-MB (CK-2) Troponin T C-Reactive Protein Total Protein Albumin Cholesterol LDL Cholesterol Direct HDL Cholesterol Free T4 Urine WBC (Auto) Urine Creatinine Urine Total Protein Crossmatch 09/13/18 09/13/18 09/13/18 02:25 05:54 07:06 WBC RBC 3.00 L Hgb 8.2 L Hct 24.9 L MCV 83 L MCH 27 L MCHC RDW 21.2 H Lymph % (Auto) [place] % (Auto) 9.6 H Eos % (Auto) 7.6 H Lymph # [place] # Eos # 0.7 H Seg Neutrophils % Seg Neuts % (Manual) Lymphocytes % (Manual) Seg Neutrophils # Seg Neutrophils # Man Lymphocytes # (Manual) Eosinophils # (Manual) PT INR APTT D-Dimer Heparin Anti-Xa Level POC ABG pH POC ABG pCO2 POC ABG pO2 Sodium Potassium Chloride Carbon Dioxide BUN Creatinine Glucose POC Glucose 167 H 178 H Lactic Acid Calcium Magnesium AST Alkaline Phosphatase Total Creatine Kinase CK-MB (CK-2) Troponin T C-Reactive Protein Total Protein Albumin Cholesterol LDL Cholesterol Direct HDL Cholesterol Free T4 Urine WBC (Auto) Urine Creatinine Urine Total Protein Crossmatch 09/13/18 09/13/18 09/13/18 07:06 09:46 14:18 WBC RBC Hgb Hct MCV MCH MCHC RDW Lymph % (Auto) [place] % (Auto) Eos % (Auto) Lymph # [place] # Eos # Seg Neutrophils % Seg Neuts % (Manual) Lymphocytes % (Manual) Seg Neutrophils # Seg Neutrophils # Man Lymphocytes # (Manual) Eosinophils # (Manual) PT INR APTT D-Dimer Heparin Anti-Xa Level POC ABG pH POC ABG pCO2 POC ABG pO2 Sodium 146 H Potassium 3.3 L Chloride 107.6 H Carbon Dioxide BUN 26 H Creatinine Glucose 138 H POC Glucose 157 H 177 H Lactic Acid Calcium 8.0 L Magnesium AST Alkaline Phosphatase Total Creatine Kinase CK-MB (CK-2) Troponin T C-Reactive Protein Total Protein Albumin Cholesterol LDL Cholesterol Direct HDL Cholesterol Free T4 Urine WBC (Auto) Urine Creatinine Urine Total Protein Crossmatch Allied health notes reviewed: nursing
[2018-09-13] MEDS: LOVENOX SUB-Q SCH (22:30)
[2018-09-13] MEDS: LANTUS SUB-Q SCH (22:31)
[2018-09-14] MEDS: HumaLOG SUB-Q SCH ×6 (02:31→23:59)
[2018-09-14] MEDS: APRESOLINE PO SCH ×3 (05:52→23:59)
[2018-09-14] MEDS: KEPPRA PO SCH ×2 (10:27→23:59)
[2018-09-14] MEDS: ROCEPHIN/NS 1 GM/50 ML 1 GM/50 ML BAG IV SCH (10:27)
[2018-09-14] MEDS: ASPIRIN PO SCH (10:27)
[2018-09-14] MEDS: SENOKOT S PO SCH (10:27)
[2018-09-14] MEDS: PEPCID PO SCH ×2 (10:28→23:59)
[2018-09-14] MEDS: SODIUM CHLORIDE FLUSH SYRINGE 10 ML IV SCH (10:28)
[2018-09-14] MEDS: NORVASC FEEDTUBE SCH (10:29)
--- NOTE | 2018-09-14 10:59 | Progress Note ---
Assessment and Plan Assessment and plan: Sepsis: Previously Resolved with treating UTI. Patient had been off antibiotic s. However with new temperature spike 09/10/18. Recheck blood cultures. 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 Acute on chronic respiratory failure Trach has been removed when patient was orally intubated, continue ventilator management per pulmonology. Tracheostomy was replaced by surgery on 08/25/18. Tracheostomy care, airway clearance, secretion management Right pneumothorax, resolved. Status post chest tube, mgt per pulmonology Hypoxic encephalopathy: neurology consult appreciated, poor prognosis, poor likelihood of recovery, preserved brain stem function otherwise unresponsive. EEG is suggestive hypoxic encephalopathy. Seizure disorder with breakthrough seizures. Continue Keppra twice a day. S eizure precautions. Hypertension. Hydralazine 100 mg 3 times a day, cont norvasc Hypernatremia, Continue free water via G-tube, sp hypotonic IV solution, monitor bmp closely Acute kidney injury likely due to ATN Nephrology following, continue IV fluid, avoid renal toxic agents NSTEMI: treated with IV heparin, asa, statin, no bblocker due to bradycardia, hypotension, Cardiology is following Severe protein calorie malnutrition: Dietitian consulted, continue tube feedings Type 2 dm with persistent hyperglycemia: cont insulins and adjust according, on tube feedings Anemia: s/p transfusion Urinary retention: continue douglass, condom cath DVT prophylaxis; patient is fully anticoagulated on heparin drip Disposition. I discussed with the family care home placement. Also discussed with case management History Interval history: Patient is a 77 yo man from [facility] with a history of respiratory failure, CVA with tracheostomy and Gtube who presented to [facility] ED following cardiac arrest after being found unresponsive at the care home. Time down is unknown per records. The patient is on the vent and unresponsive, all history is obtained from the chart. Patient had multiple episodes of arrest/pulselessness. He has been on the vent since then without any improvement. Per ER notes the patient was bagged via tracheostomy which continued to have low tidal volumes and so the patient with orally intubated after which tidal volumes improved. I spoke with and daughter, Felicita and they believe that he aspirated with a mucus plug that caused the cardiopulmonary arrest not NSTEMI.. Initially, he went to [facility] may 05 to june 05, he had fluid on brain and multiple strokes per family and they drained the fluid off the brain. The trach was placed at [facility] and patient went to [facility], x 7 weeks (trach was changed where capped was placed), he was doing well, talking and sitting up. Then he went to [facility], August 03 and his oral care was horrible. The trach care was horrible and not enough suctioning done. Mouth with copious amou nt of crud. Then on August 12, Friday, he had voice changing and mucus plugging. Followed by respiratory arrest. The NM brain flow scan showed reduced blood flow. Patient had evaluation by neurology who reports patient with intact brainstem function. Patient still comatose, no improvement. LTAC was recommended but denied. Hospitalist Physical - Constitutional Vitals: Temp Pulse Resp BP Pulse Ox 98.3 F 92 H 22 145/66 99 09/14/18 04:54 09/14/18 04:54 09/14/18 04:54 09/14/18 04:54 09/14/18 10:06 General appearance: Present: other (twitching, nonresponsive, intubated) - EENT Eyes: Present: PERRL, EOM intact ENT: hearing intact, clear oral mucosa, dentition normal - Neck Neck: Present: supple, normal ROM - Respiratory Respiratory effort: normal Respiratory: bilateral: CTA - Cardiovascular Rhythm: regular Heart Sounds: Present: S1 & S2. Absent: gallop, rub - Extremities Extremities: no ischemia, No edema, Full ROM - Abdominal General gastrointestinal: soft, non-tender, non-distended, normal bowel sounds - Integumentary Integumentary: Present: clear, warm, dry - Neurologic Neurologic: CNII-XII intact, moves all extremities Results - Labs CBC & Chem 7: 09/13/18 07:06 09/13/18 07:06 Labs: Laboratory Last Values WBC 8.7 K/mm3 (4.5-11.0) 09/13/18 07:06 RBC 3.00 M/mm3 (3.65-5.03) L 09/13/18 07:06 Hgb 8.2 gm/dl (11.8-15.2) L 09/13/18 07:06 Hct 24.9 % (35.5-45.6) L 09/13/18 07:06 MCV 83 fl (84-94) L 09/13/18 07:06 MCH 27 pg (28-32) L 09/13/18 07:06 MCHC 33 % (32-34) 09/13/18 07:06 RDW 21.2 % (13.2-15.2) H 09/13/18 07:06 Plt Count 300 K/mm3 (140-440) 09/13/18 07:06 Lymph % (Auto) 21.6 % (13.4-35.0) 09/13/18 07:06 [place] % (Auto) 9.6 % (0.0-7.3) H 09/13/18 07:06 Eos % (Auto) 7.6 % (0.0-4.3) H 09/13/18 07:06 Baso % (Auto) 0.4 % (0.0-1.8) 09/13/18 07:06 Lymph # 1.9 K/mm3 (1.2-5.4) 09/13/18 07:06 [place] # 0.8 K/mm3 (0.0-0.8) 09/13/18 07:06 Eos # 0.7 K/mm3 (0.0-0.4) H 09/13/18 07:06 Baso # 0.0 K/mm3 (0.0-0.1) 09/13/18 07:06 Add Manual Diff Complete 09/11/18 22:33 Total Counted 100 09/11/18 22:33 Seg Neutrophils % 60.8 % (40.0-70.0) 09/13/18 07:06 Seg Neuts % (Manual) 77.0 % (40.0-70.0) H 09/11/18 22:33 0 % 09/11/18 22:33 13.0 % (13.4-35.0) L 09/11/18 22:33 Reactive Lymphs % (Man) 0 % 09/11/18 22:33 6.0 % (0.0-7.3) 09/11/18 22:33 4.0 % (0.0-4.3) 09/11/18 22:33 0 % (0.0-1.8) 09/11/18 22:33 0 % 09/11/18 22:33 0 % 09/11/18 22:33 0 % 09/11/18 22:33 0 % 09/11/18 22:33 Nucleated RBC % Not Reportable 09/11/18 22:33 Seg Neutrophils # 5.3 K/mm3 (1.8-7.7) 09/13/18 07:06 Seg Neutrophils # Man 9.3 K/mm3 (1.8-7.7) H 09/11/18 22:33 Band Neutrophils # 0.0 K/mm3 09/11/18 22:33 1.6 K/mm3 (1.2-5.4) 09/11/18 22:33 Abs React Lymphs (Man) 0.0 K/mm3 09/11/18 22:33 0.7 K/mm3 (0.0-0.8) 09/11/18 22:33 0.5 K/mm3 (0.0-0.4) H 09/11/18 22:33 0.0 K/mm3 (0.0-0.1) 09/11/18 22:33 0.0 K/mm3 09/11/18 22:33 0.0 K/mm3 09/11/18 22:33 0.0 K/mm3 09/11/18 22:33 Blast Cells # 0.0 K/mm3 09/11/18 22:33 WBC Morphology Not Reportable 09/11/18 22:33 Hypersegmented Neuts Not Reportable 09/11/18 22:33 Hyposegmented Neuts Not Reportable 09/11/18 22:33 Hypogranular Neuts Not Reportable 09/11/18 22:33 Not Reportable 09/11/18 22:33 Not Reportable 09/11/18 22:33 Not Reportable 09/11/18 22:33 Not Reportable 09/11/18 22:33 Not Reportable 09/11/18 22:33 Not Reportable 09/11/18 22:33 Appears normal 09/11/18 22:33 Not Reportable 09/11/18 22:33 Plt Clumps, EDTA Not Reportable 09/11/18 22:33 Not Reportable 09/11/18 22:33 Not Reportable 09/11/18 22:33 Not Reportable 09/11/18 22:33 Plt Morphology Comment Not Reportable 09/11/18 22:33 RBC Morphology Not Reportable 09/11/18 22:33 Dimorphic RBCs Not Reportable 09/11/18 22:33 Not Reportable 09/11/18 22:33 Not Reportable 09/11/18 22:33 Few 09/11/18 22:33 1+ 09/11/18 22:33 Not Reportable 09/11/18 22:33 Not Reportable 09/11/18 22:33 Not Reportable 09/11/18 22:33 Not Reportable 09/11/18 22:33 Not Reportable 09/11/18 22:33 Not Reportable 09/11/18 22:33 Not Reportable 09/11/18 22:33 Not Reportable 09/11/18 22:33 Not Reportable 09/11/18 22:33 Not Reportable 09/11/18 22:33 Not Reportable 09/11/18 22:33 Not Reportable 09/11/18 22:33 Not Reportable 09/11/18 22:33 Not Reportable 09/11/18 22:33 Not Reportable 09/11/18 22:33 Acanthocytes (Spur) Not Reportable 09/11/18 22:33 Rouleaux Not Reportable 09/11/18 22:33 Not Reportable 09/11/18 22:33 Not Reportable 09/11/18 22:33 Not Reportable 09/11/18 22:33 Not Reportable 09/11/18 22:33 Hem Pathologist Commnt No 09/11/18 22:33 PT 16.5 Sec. (12.2-14.9) H 08/13/18 00:47 INR 1.25 (0.87-1.13) H 08/13/18 00:47 APTT 79.0 Sec. (24.2-36.6) H* 08/15/18 06:35 2742.50 ng/mlDDU (0-234) H 08/13/18 20:07 Heparin Anti-Xa Level 0.26 U.I./ml (0.3-0.7) L 08/16/18 20:01 POC ABG pH 7.447 (7.35-7.45) 09/12/18 19:33 POC ABG pCO2 44.5 (35-45) 09/12/18 19:33 POC ABG pO2 88 (80-105) 09/12/18 19:33 POC ABG HCO3 30.7 (22-26 mml/L) 09/12/18 19:33 POC ABG Total CO2 32 (23-27mmol/L) 09/12/18 19:33 POC ABG O2 Sat 97 09/12/18 19:33 POC ABG Base Excess 7 ((-2) - (+3)mmol/L) 09/12/18 19:33 28 % 09/12/18 19:33 Sodium 146 mmol/L (137-145) H 09/13/18 07:06 Potassium 3.3 mmol/L (3.6-5.0) L 09/13/18 07:06 Chloride 107.6 mmol/L (98-107) H 09/13/18 07:06 Carbon Dioxide 29 mmol/L (22-30) 09/13/18 07:06 13 mmol/L 09/13/18 07:06 BUN 26 mg/dL (9-20) H 09/13/18 07:06 0.8 mg/dL (0.8-1.5) 09/13/18 07:06 Estimated GFR > 60 ml/min 09/13/18 07:06 33 % 09/13/18 07:06 Glucose 138 mg/dL (75-100) H 09/13/18 07:06 POC Glucose 201 (70-105) H 09/14/18 10:22 Lactic Acid 2.80 mmol/L (0.7-2.0) H* 08/13/18 12:53 Calcium 8.0 mg/dL (8.4-10.2) L 09/13/18 07:06 Phosphorus 3.90 mg/dL (2.5-4.5) 08/15/18 04:05 Magnesium 1.70 mg/dL (1.7-2.3) 09/06/18 14:35 < 0.20 mg/dL (0.1-1.2) 08/30/18 05:40 AST 50 units/L (5-40) H 08/30/18 05:40 ALT 31 units/L (7-56) 08/30/18 05:40 158 units/L (35-129) H 08/30/18 05:40 309 units/L (55-170) H 08/13/18 10:10 CK-MB (CK-2) 4.1 ng/mL (0.0-4.0) H 08/13/18 10:10 CK-MB (CK-2) Rel Index 1.3 (0-4) 08/13/18 10:10 0.409 ng/mL (0.00-0.029) H* 08/14/18 04:03 16.90 mg/dL (0.00-1.30) H 08/13/18 12:53 6.4 g/dL (6.3-8.2) 08/30/18 05:40 1.6 g/dL (3.9-5) L 08/30/18 05:40 0.3 % 08/30/18 05:40 Triglycerides 62 mg/dL (2-149) 08/13/18 00:32 Cholesterol 46 mg/dL (50-199) L 08/13/18 00:32 17 mg/dL (50-130) L 08/13/18 00:32 6 mg/dL (40-59) L 08/13/18 00:32 7.66 % 08/13/18 00:32 TSH 0.973 mlU/mL (0.270-4.200) 08/26/18 09:00 Free T4 0.51 ng/dL (0.76-1.46) L 08/26/18 09:00 Yellow (Yellow) 08/25/18 12:40 Turbid (Clear) 08/25/18 12:40 7.0 (5.0-7.0) 08/25/18 12:40 Ur Specific [place] 1.009 (1.003-1.030) 08/25/18 12:40 100 mg/dl mg/dL (Negative) 08/25/18 12:40 Neg mg/dL (Negative) 08/25/18 12:40 Neg mg/dL (Negative) 08/25/18 12:40 Mod (Negative) 08/25/18 12:40 Neg (Negative) 08/25/18 12:40 Neg (Negative) 08/25/18 12:40 < 2.0 mg/dL (<2.0) 08/25/18 12:40 Ur Leukocyte Esterase Lg (Negative) 08/25/18 12:40 > 182.0 /HPF (0.0-6.0) H 08/25/18 12:40 10.0 /HPF (0.0-6.0) 08/25/18 12:40 U Epithel Cells (Auto) 5.0 /HPF (0-13.0) 08/25/18 12:40 2+ /HPF (Negative) 08/13/18 00:50 3+ /HPF 08/25/18 12:40 None seen (None Seen) 08/14/18 17:20 60.9 mg/dL (0.1-20.0) H 08/14/18 17:20 32 mmol/L 08/14/18 17:20 64 mg/dL (5-11.8) H 08/14/18 17:20 Presumptive negative 08/12/18 21:30 Presumptive negative 08/12/18 21:30 Ur Barbiturates Screen Presumptive negative 08/12/18 21:30 Ur Phencyclidine Scrn Presumptive negative 08/12/18 21:30 Ur Amphetamines Screen Presumptive negative 08/12/18 21:30 U Benzodiazepines Scrn Presumptive negative 08/12/18 21:30 Presumptive negative 08/12/18 21:30 U Marijuana (THC) Screen Presumptive negative 08/12/18 21:30 Disclamer 08/12/18 21:30 Blood Type O POSITIVE 08/15/18 15:31 Antibody Screen Negative 08/15/18 15:31 Crossmatch See Detail 08/15/18 15:31 Active Medications - Current Medications Current Medications: Generic Name Dose Route Start Last Admin Trade Name Freq PRN Reason Stop Dose Admin Acetaminophen 650 mg 08/13/18 11:40 09/10/18 23:47 Tylenol PO 650 mg Q6H PRN Administration Fever >101 Amlodipine Besylate 5 mg 09/02/18 10:00 09/14/18 10:29 Norvasc FEEDTUBE 5 mg QDAY LENCHO Administration Lipase/Protease/Amylase 1 each 09/10/18 17:12 Pancregarrett Alas 10,500 Unit FEEDTUBE PRN PRN For Clogged Feeding Tube Aspirin 325 mg 08/17/18 10:00 09/14/18 10:27 Aspirin PO 325 mg QDAY LENCHO Administration Atorvastatin Calcium 40 mg 08/14/18 22:00 09/13/18 22:30 Lipitor PO 40 mg QHS LENCHO Administration Dextrose 50 ml 08/13/18 01:34 D50w (25gm) Syringe IV PRN PRN Hypoglycemia Enoxaparin Sodium 40 mg 08/17/18 22:00 09/13/18 22:30 Lovenox SUB-Q 40 mg QDAY@2200 LENCHO Administration Famotidine 20 mg 08/19/18 10:00 09/14/18 10:28 Pepcid PO 20 mg BID LENCHO Administration Hydralazine HCl 100 mg 09/02/18 09:00 09/14/18 05:52 Apresoline PO 100 mg Q8HR LENCHO Administration Hydralazine HCl 20 mg 09/02/18 08:16 Apresoline IV Q4HR PRN SBP>160 or DBP>110 Hydrophilic Ointment 1 applic 08/13/18 12:21 Vaseline Lip Therapy TP Q2HR PRN Dry Lips Ceftriaxone Sodium 1 gm in 50 mls @ 100 mls/hr 09/12/18 10:00 09/14/18 10:27 Rocephin/Ns 1 Gm/50 Ml IV 100 mls/hr Q24HR LENCHO Administration Protocol Insulin Glargine 45 units 09/08/18 22:00 09/13/18 22:31 Lantus SUB-Q 45 units QHS LENCHO Administration Insulin Human Lispro 0 unit 08/26/18 10:00 09/14/18 10:38 Humalog SUB-Q 3 unit Q4HR LENCHO Administration Protocol Levetiracetam 500 mg 08/27/18 22:00 09/14/18 10:27 Keppra PO 500 mg BID LENCHO Administration Multi-Ingred Cream/Lotion/Oil/Oint 1 applic 08/13/18 12:21 08/17/18 00:41 Artificial Tears Ophth Oint OU 1 applic Q4HR PRN Administration Dry Eye(s) Ondansetron HCl 4 mg 08/13/18 01:34 Zofran IV Q8H PRN Nausea And Vomiting Senna/Docusate Sodium 2 tab 09/07/18 14:00 09/14/18 10:27 Senokot S PO 2 tab DAILY LENCHO Administration Simple Syrup 15 ml 09/10/18 17:12 Simple Syrup FEEDTUBE PRN PRN Hypoglycemia Simple Syrup 30 ml 09/10/18 17:12 Simple Syrup FEEDTUBE PRN PRN Hypoglycemia Sodium Bicarbonate 325 mg 09/10/18 17:12 Sodium Bicarbonate FEEDTUBE PRN PRN For Clogged Feeding Tube Sodium Chloride 10 ml 08/13/18 10:00 09/14/18 10:28 Sodium Chloride Flush Syringe 10 Ml IV 10 ml BID LENCHO Administration Sodium Chloride 10 ml 08/13/18 01:34 08/30/18 22:29 Sodium Chloride Flush Syringe 10 Ml IV 10 ml PRN PRN Administration LINE FLUSH Nutrition/Malnutrition Assess - Dietary Evaluation Nutrition/Malnutrition Findings: Nutrition Notes Start: 08/13/18 15:41 Freq: Status: Active Protocol: Document 09/10/18 16:59 RM (Rec: 09/10/18 17:12 RM [id number]) Nutrition Notes Initial or Follow up Reassessment Current Diagnosis Acute Kidney Injury,Diabetes Other Pertinent Diagnosis Trach,Hx CVA,PEG, Sacral PU, Multiple PU, Anoxic brain injury,R pneumothorax Current Diet Vital 1.2 at 60 ml/hr Labs/Tests Na 141 (09/08/18) Pertinent Medications Reviewed Height 5 ft 8 in Weight 81.4 kg [place] Body Weight (kg) 70.00 BMI 27.3 Subjective/Other Information Observed Jevity 1.2 infusing at 60 ml/hr. Per nurse pt is tolerating TF. Percent of energy/protein needs met: 95%/92% Burn Absent Trauma Absent #1 Nutrition Diagnosis Inadequate oral intake Diagnosis Progress(for reassessment Continues documentation) Is patient on ventilator? No Is Patient Ambulatory and/or Out of Bed No REE-([facility]-confined to bed) 5966.279 Calculation Used for Recommendations [facility] Additional Notes Protein Needs: 87-122g (1.2-1. 5g/kg) Fluid Needs: 1 ml/kcal Nutrition Intervention Nutrition Support: Jevity 1.2 at 60 ml/hr. Water flush 100 mls q 4 hrs. Kcal 1,728 Protein (gm) 80 Fluid (mL) 1,162 Add Supplement/Snack (indicate name/kcal Magen BID /protein ) Provides kCal: 190 Provides Protein (gm) 5 Goal #1 Continue to meet at least 75% of calorie and protein needs via TF Anticipated Discharge Needs: Jevity 1.2 Follow-Up By: 09/16/18 Additional Comments Follow for TF tolerance
--- NOTE | 2018-09-14 15:26 | XRay Report ---
AP CHEST: HISTORY: Follow up infiltrates Infiltrate at the left lung base has decreased by 75% since 09/06/18. The left upper lung and right lung remain clear. Heart and mediastinal structures are within normal limits. The tracheostomy is in adequate position. IMPRESSION: Decreased left lung infiltrates.
[2018-09-14] MEDS: LANTUS SUB-Q SCH (23:58)
[2018-09-14] MEDS: LOVENOX SUB-Q SCH (23:59)
[2018-09-15] MEDS: SODIUM CHLORIDE FLUSH SYRINGE 10 ML IV SCH ×3 (00:07→22:30)
[2018-09-15] MEDS: HumaLOG SUB-Q SCH ×6 (03:54→22:29)
[2018-09-15] MEDS: APRESOLINE PO SCH ×3 (06:52→22:27)
--- NOTE | 2018-09-15 09:56 | Progress Note ---
Assessment and Plan Patient is resting on T-Tube FiO2 30%. O2 Sat 94%. No acute respiratory distress. - Patient Problems (1) Acute and chronic respiratory failure Current Visit: Yes Status: Acute Qualifiers: Respiratory failure complication: hypoxia Qualified Code(s): J96.21 - Acute and chronic respiratory failure with hypoxia Plan to address problem: S/p Tracheostomy. T tube FIO2 30%. Recommend albuterol/atrovent aerosol treatments q 6 hours. Continue S/C lovenox. Continue Famotidine. (2) Altered mental state Current Visit: Yes Status: Acute Plan to address problem: Management as per primary care and neurology. (3) Cardiac arrest Current Visit: Yes Status: Acute Plan to address problem: Patient sucessfully resucitated. Presently resting on T tube. (4) ACS (acute coronary syndrome) Current Visit: Yes Status: Acute Plan to address problem: Management as per cardiology. (5) MAYLIN (acute kidney injury) Current Visit: Yes Status: Acute Plan to address problem: Management as per nephrology. (6) Anemia Current Visit: Yes Status: Acute Plan to address problem: Management as per primary care and hematology. (7) Essential (primary) hypertension Current Visit: Yes Status: Acute Plan to address problem: Management as per primary care. (8) Pulmonary infiltrate Current Visit: Yes Status: Acute Plan to address problem: Reported perihilar and basilar infiltrate. Patient chest X-ray decreased left lung infiltrates. Patient has low grade temp. Patient has no leukocytosis. Subjective Date of service: 09/15/18 Principal diagnosis: Acute hypoxemic resp failure; S/P cardiac arrest; Seizures; DM II; H/O CVA Interval history: Patient is resting on T-Tube FiO2 30%. O2 Sat 94%. No acute respiratory distress. Objective Vital Signs - 12hr 09/15/18 09/15/18 09/15/18 02:07 02:48 04:00 Temperature 98.5 F Pulse Rate 78 Respiratory 22 20 Rate Blood Pressure 142/65 O2 Sat by Pulse 100 99 Oximetry O2 Sat by Pulse 100 Oximetry [ Assessment] 09/15/18 09/15/18 09/15/18 04:14 07:36 07:41 Temperature 98.3 F Pulse Rate 88 Respiratory 22 Rate Blood Pressure 117/53 O2 Sat by Pulse 99 100 Oximetry O2 Sat by Pulse 100 Oximetry [ Assessment] Constitutional: no acute distress, other (Elderly looking AAM, normocephalic resting in bed on MVS) Eyes: non-icteric, injected, other (+periorbital swelling) ENT: oropharynx moist Neck: supple, no lymphadenopathy, no JVD, other (s/p tracheostomy) Effort: mildly labored Ascultation: Bilateral: diminished breath sounds, rhonchi Percussion: Bilateral: not dull Cardiovascular: regular rate and rhythm Gastrointestinal: normoactive bowel sounds, soft, non-tender, non-distended Integumentary: normal Extremities: no cyanosis, pulses normal, no ischemia or petechiae, edema (trace ) Neurologic: unable to assess, other (slight pupillary constriction to light) Psychiatric: other (unable to assess) CBC and BMP: 09/13/18 07:06 09/13/18 07:06 ABG, PT/INR, D-dimer: ABG POC ABG pH 7.447 (7.35-7.45) 09/12/18 19:33 POC ABG pCO2 44.5 (35-45) 09/12/18 19:33 POC ABG pO2 88 (80-105) 09/12/18 19:33 POC ABG HCO3 30.7 (22-26 mml/L) 09/12/18 19:33 POC ABG Total CO2 32 (23-27mmol/L) 09/12/18 19:33 POC ABG O2 Sat 97 09/12/18 19:33 PT/INR, D-dimer PT 16.5 Sec. (12.2-14.9) H 08/13/18 00:47 INR 1.25 (0.87-1.13) H 08/13/18 00:47 2742.50 ng/mlDDU (0-234) H 08/13/18 20:07 Abnormal lab findings: Abnormal Labs 08/12/18 08/12/18 08/12/18 21:44 21:44 21:44 WBC 15.5 H RBC 3.12 L Hgb 8.8 L Hct 28.9 L MCV MCH MCHC 31 L RDW 19.5 H Lymph % (Auto) [place] % (Auto) Eos % (Auto) Lymph # [place] # Eos # Seg Neutrophils % Seg Neuts % (Manual) Lymphocytes % (Manual) 48.0 H Seg Neutrophils # Seg Neutrophils # Man Lymphocytes # (Manual) 7.4 H Eosinophils # (Manual) PT 17.8 H INR 1.37 H APTT D-Dimer Heparin Anti-Xa Level POC ABG pH POC ABG pCO2 POC ABG pO2 Sodium 159 H Potassium Chloride 118.5 H Carbon Dioxide BUN 34 H Creatinine Glucose 161 H POC Glucose Lactic Acid Calcium Magnesium AST Alkaline Phosphatase Total Creatine Kinase CK-MB (CK-2) Troponin T 0.105 H* C-Reactive Protein Total Protein Albumin Cholesterol LDL Cholesterol Direct HDL Cholesterol Free T4 Urine WBC (Auto) Urine Creatinine Urine Total Protein Crossmatch 08/13/18 08/13/18 08/13/18 00:32 00:47 00:47 WBC RBC Hgb 9.2 L Hct 29.6 L MCV MCH MCHC RDW Lymph % (Auto) [place] % (Auto) Eos % (Auto) Lymph # [place] # Eos # Seg Neutrophils % Seg Neuts % (Manual) Lymphocytes % (Manual) Seg Neutrophils # Seg Neutrophils # Man Lymphocytes # (Manual) Eosinophils # (Manual) PT 16.5 H INR 1.25 H APTT 37.3 H D-Dimer Heparin Anti-Xa Level POC ABG pH POC ABG pCO2 POC ABG pO2 Sodium Potassium Chloride Carbon Dioxide BUN Creatinine Glucose POC Glucose Lactic Acid Calcium Magnesium AST Alkaline Phosphatase Total Creatine Kinase 211 H CK-MB (CK-2) 7.7 H Troponin T 0.169 H* D C-Reactive Protein Total Protein Albumin Cholesterol 46 L LDL Cholesterol Direct 17 L HDL Cholesterol 6 L Free T4 Urine WBC (Auto) Urine Creatinine Urine Total Protein Crossmatch 08/13/18 08/13/18 08/13/18 00:50 02:25 05:34 WBC RBC Hgb Hct MCV MCH MCHC RDW Lymph % (Auto) [place] % (Auto) Eos % (Auto) Lymph # [place] # Eos # Seg Neutrophils % Seg Neuts % (Manual) Lymphocytes % (Manual) Seg Neutrophils # Seg Neutrophils # Man Lymphocytes # (Manual) Eosinophils # (Manual) PT INR APTT D-Dimer Heparin Anti-Xa Level POC ABG pH 7.503 H POC ABG pCO2 POC ABG pO2 253 H Sodium Potassium Chloride Carbon Dioxide BUN Creatinine Glucose POC Glucose Lactic Acid Calcium Magnesium AST Alkaline Phosphatase Total Creatine Kinase 311 H CK-MB (CK-2) 10.4 H Troponin T 0.283 H* D C-Reactive Protein Total Protein Albumin Cholesterol LDL Cholesterol Direct HDL Cholesterol Free T4 Urine WBC (Auto) > 182.0 H Urine Creatinine Urine Total Protein Crossmatch 08/13/18 08/13/18 08/13/18 06:35 10:10 10:10 WBC RBC Hgb Hct MCV MCH MCHC RDW Lymph % (Auto) [place] % (Auto) Eos % (Auto) Lymph # [place] # Eos # Seg Neutrophils % Seg Neuts % (Manual) Lymphocytes % (Manual) Seg Neutrophils # Seg Neutrophils # Man Lymphocytes # (Manual) Eosinophils # (Manual) PT INR APTT D-Dimer Heparin Anti-Xa Level POC ABG pH 7.554 H POC ABG pCO2 33.5 L POC ABG pO2 220 H Sodium 158 H Potassium Chloride 117.1 H Carbon Dioxide BUN 53 H Creatinine 2.0 H Glucose 247 H POC Glucose Lactic Acid Calcium 8.2 L Magnesium AST Alkaline Phosphatase Total Creatine Kinase 309 H CK-MB (CK-2) 4.1 H Troponin T 0.470 H* D C-Reactive Protein Total Protein Albumin Cholesterol LDL Cholesterol Direct HDL Cholesterol Free T4 Urine WBC (Auto) Urine Creatinine Urine Total Protein Crossmatch 08/13/18 08/13/18 08/13/18 12:53 12:53 17:55 WBC RBC Hgb Hct MCV MCH MCHC RDW Lymph % (Auto) [place] % (Auto) Eos % (Auto) Lymph # [place] # Eos # Seg Neutrophils % Seg Neuts % (Manual) Lymphocytes % (Manual) Seg Neutrophils # Seg Neutrophils # Man Lymphocytes # (Manual) Eosinophils # (Manual) PT INR APTT D-Dimer Heparin Anti-Xa Level POC ABG pH POC ABG pCO2 POC ABG pO2 Sodium Potassium Chloride Carbon Dioxide BUN Creatinine Glucose POC Glucose 308 H Lactic Acid 2.80 H* Calcium Magnesium 2.50 H AST Alkaline Phosphatase Total Creatine Kinase CK-MB (CK-2) Troponin T C-Reactive Protein 16.90 H Total Protein Albumin Cholesterol LDL Cholesterol Direct HDL Cholesterol Free T4 Urine WBC (Auto) Urine Creatinine Urine Total Protein Crossmatch 08/13/18 08/13/18 08/13/18 20:07 21:16 23:17 WBC RBC Hgb Hct MCV MCH MCHC RDW Lymph % (Auto) [place] % (Auto) Eos % (Auto) Lymph # [place] # Eos # Seg Neutrophils % Seg Neuts % (Manual) Lymphocytes % (Manual) Seg Neutrophils # Seg Neutrophils # Man Lymphocytes # (Manual) Eosinophils # (Manual) PT INR APTT D-Dimer 2742.50 H Heparin Anti-Xa Level POC ABG pH 7.483 H POC ABG pCO2 30.8 L POC ABG pO2 150 H Sodium Potassium Chloride Carbon Dioxide BUN Creatinine Glucose POC Glucose 245 H Lactic Acid Calcium Magnesium AST Alkaline Phosphatase Total Creatine Kinase CK-MB (CK-2) Troponin T C-Reactive Protein Total Protein Albumin Cholesterol LDL Cholesterol Direct HDL Cholesterol Free T4 Urine WBC (Auto) Urine Creatinine Urine Total Protein Crossmatch 08/14/18 08/14/18 08/14/18 04:03 04:03 04:56 WBC 18.2 H RBC 2.62 L Hgb 7.3 L Hct 24.5 L MCV MCH MCHC RDW 18.9 H Lymph % (Auto) [place] % (Auto) Eos % (Auto) Lymph # [place] # 1.2 H Eos # Seg Neutrophils % 79.4 H Seg Neuts % (Manual) Lymphocytes % (Manual) Seg Neutrophils # 14.5 H Seg Neutrophils # Man Lymphocytes # (Manual) Eosinophils # (Manual) PT INR APTT D-Dimer Heparin Anti-Xa Level POC ABG pH POC ABG pCO2 33.5 L POC ABG pO2 153 H Sodium 152 H Potassium 3.4 L Chloride 113.8 H Carbon Dioxide BUN 72 H Creatinine 2.7 H Glucose 239 H POC Glucose Lactic Acid Calcium 7.6 L Magnesium AST 50 H Alkaline Phosphatase 219 H Total Creatine Kinase CK-MB (CK-2) Troponin T 0.409 H* C-Reactive Protein Total Protein 6.2 L Albumin 1.9 L Cholesterol LDL Cholesterol Direct HDL Cholesterol Free T4 Urine WBC (Auto) Urine Creatinine Urine Total Protein Crossmatch 08/14/18 08/14/18 08/14/18 05:18 13:38 15:35 WBC RBC Hgb Hct MCV MCH MCHC RDW Lymph % (Auto) [place] % (Auto) Eos % (Auto) Lymph # [place] # Eos # Seg Neutrophils % Seg Neuts % (Manual) Lymphocytes % (Manual) Seg Neutrophils # Seg Neutrophils # Man Lymphocytes # (Manual) Eosinophils # (Manual) PT INR APTT D-Dimer Heparin Anti-Xa Level POC ABG pH POC ABG pCO2 POC ABG pO2 Sodium 150 H Potassium 3.2 L Chloride 114.5 H Carbon Dioxide BUN 69 H Creatinine 2.3 H Glucose 247 H POC Glucose 242 H 296 H Lactic Acid Calcium 7.2 L Magnesium AST Alkaline Phosphatase Total Creatine Kinase CK-MB (CK-2) Troponin T C-Reactive Protein Total Protein Albumin Cholesterol LDL Cholesterol Direct HDL Cholesterol Free T4 Urine WBC (Auto) Urine Creatinine Urine Total Protein Crossmatch 08/14/18 08/14/18 08/14/18 17:01 17:20 23:47 WBC RBC Hgb Hct MCV MCH MCHC RDW Lymph % (Auto) [place] % (Auto) Eos % (Auto) Lymph # [place] # Eos # Seg Neutrophils % Seg Neuts % (Manual) Lymphocytes % (Manual) Seg Neutrophils # Seg Neutrophils # Man Lymphocytes # (Manual) Eosinophils # (Manual) PT INR APTT D-Dimer Heparin Anti-Xa Level POC ABG pH POC ABG pCO2 POC ABG pO2 Sodium Potassium Chloride Carbon Dioxide BUN Creatinine Glucose POC Glucose 261 H 280 H Lactic Acid Calcium Magnesium AST Alkaline Phosphatase Total Creatine Kinase CK-MB (CK-2) Troponin T C-Reactive Protein Total Protein Albumin Cholesterol LDL Cholesterol Direct HDL Cholesterol Free T4 Urine WBC (Auto) Urine Creatinine 60.9 H Urine Total Protein 64 H Crossmatch 08/15/18 08/15/18 08/15/18 04:05 04:05 04:05 WBC RBC Hgb 6.3 L Hct 19.7 L* MCV MCH MCHC RDW Lymph % (Auto) [place] % (Auto) Eos % (Auto) Lymph # [place] # Eos # Seg Neutrophils % Seg Neuts % (Manual) Lymphocytes % (Manual) Seg Neutrophils # Seg Neutrophils # Man Lymphocytes # (Manual) Eosinophils # (Manual) PT INR APTT D-Dimer Heparin Anti-Xa Level 0.17 L POC ABG pH POC ABG pCO2 POC ABG pO2 Sodium 146 H Potassium 3.0 L Chloride 110.6 H Carbon Dioxide BUN 64 H Creatinine 2.2 H Glucose 231 H POC Glucose Lactic Acid Calcium 7.1 L Magnesium AST Alkaline Phosphatase Total Creatine Kinase CK-MB (CK-2) Troponin T C-Reactive Protein Total Protein Albumin Cholesterol LDL Cholesterol Direct HDL Cholesterol Free T4 Urine WBC (Auto) Urine Creatinine Urine Total Protein Crossmatch 08/15/18 08/15/18 08/15/18 05:21 05:26 06:35 WBC RBC Hgb Hct MCV MCH MCHC RDW Lymph % (Auto) [place] % (Auto) Eos % (Auto) Lymph # [place] # Eos # Seg Neutrophils % Seg Neuts % (Manual) Lymphocytes % (Manual) Seg Neutrophils # Seg Neutrophils # Man Lymphocytes # (Manual) Eosinophils # (Manual) PT INR APTT 79.0 H* D-Dimer Heparin Anti-Xa Level POC ABG pH 7.494 H POC ABG pCO2 POC ABG pO2 155 H Sodium Potassium Chloride Carbon Dioxide BUN Creatinine Glucose POC Glucose 271 H Lactic Acid Calcium Magnesium AST Alkaline Phosphatase Total Creatine Kinase CK-MB (CK-2) Troponin T C-Reactive Protein Total Protein Albumin Cholesterol LDL Cholesterol Direct HDL Cholesterol Free T4 Urine WBC (Auto) Urine Creatinine Urine Total Protein Crossmatch 08/15/18 08/15/18 08/15/18 12:10 15:31 17:27 WBC RBC Hgb Hct MCV MCH MCHC RDW Lymph % (Auto) [place] % (Auto) Eos % (Auto) Lymph # [place] # Eos # Seg Neutrophils % Seg Neuts % (Manual) Lymphocytes % (Manual) Seg Neutrophils # Seg Neutrophils # Man Lymphocytes # (Manual) Eosinophils # (Manual) PT INR APTT D-Dimer Heparin Anti-Xa Level POC ABG pH POC ABG pCO2 POC ABG pO2 Sodium Potassium Chloride Carbon Dioxide BUN Creatinine Glucose POC Glucose 301 H 287 H Lactic Acid Calcium Magnesium AST Alkaline Phosphatase Total Creatine Kinase CK-MB (CK-2) Troponin T C-Reactive Protein Total Protein Albumin Cholesterol LDL Cholesterol Direct HDL Cholesterol Free T4 Urine WBC (Auto) Urine Creatinine Urine Total Protein Crossmatch See Detail 08/15/18 08/15/18 08/16/18 21:41 23:45 04:13 WBC RBC Hgb Hct MCV MCH MCHC RDW Lymph % (Auto) [place] % (Auto) Eos % (Auto) Lymph # [place] # Eos # Seg Neutrophils % Seg Neuts % (Manual) Lymphocytes % (Manual) Seg Neutrophils # Seg Neutrophils # Man Lymphocytes # (Manual) Eosinophils # (Manual) PT INR APTT D-Dimer Heparin Anti-Xa Level 0.19 L POC ABG pH POC ABG pCO2 32.1 L POC ABG pO2 107 H Sodium Potassium Chloride Carbon Dioxide BUN Creatinine Glucose POC Glucose 163 H Lactic Acid Calcium Magnesium AST Alkaline Phosphatase Total Creatine Kinase CK-MB (CK-2) Troponin T C-Reactive Protein Total Protein Albumin Cholesterol LDL Cholesterol Direct HDL Cholesterol Free T4 Urine WBC (Auto) Urine Creatinine Urine Total Protein Crossmatch 08/16/18 08/16/18 08/16/18 04:50 05:28 11:30 WBC RBC 2.67 L Hgb 8.1 L Hct 23.4 L MCV MCH MCHC 35 H RDW 18.3 H Lymph % (Auto) [place] % (Auto) Eos % (Auto) Lymph # [place] # Eos # Seg Neutrophils % Seg Neuts % (Manual) Lymphocytes % (Manual) Seg Neutrophils # Seg Neutrophils # Man Lymphocytes # (Manual) Eosinophils # (Manual) PT INR APTT D-Dimer Heparin Anti-Xa Level 0.19 L POC ABG pH POC ABG pCO2 POC ABG pO2 Sodium Potassium Chloride Carbon Dioxide BUN Creatinine Glucose POC Glucose 141 H Lactic Acid Calcium Magnesium AST Alkaline Phosphatase Total Creatine Kinase CK-MB (CK-2) Troponin T C-Reactive Protein Total Protein Albumin Cholesterol LDL Cholesterol Direct HDL Cholesterol Free T4 Urine WBC (Auto) Urine Creatinine Urine Total Protein Crossmatch 08/16/18 08/16/18 08/16/18 11:30 12:00 12:01 WBC RBC Hgb Hct MCV MCH MCHC RDW Lymph % (Auto) [place] % (Auto) Eos % (Auto) Lymph # [place] # Eos # Seg Neutrophils % Seg Neuts % (Manual) Lymphocytes % (Manual) Seg Neutrophils # Seg Neutrophils # Man Lymphocytes # (Manual) Eosinophils # (Manual) PT INR APTT D-Dimer Heparin Anti-Xa Level 0.15 L POC ABG pH POC ABG pCO2 POC ABG pO2 Sodium Potassium Chloride 107.8 H Carbon Dioxide 21 L BUN 47 H Creatinine 1.6 H Glucose 221 H POC Glucose 267 H Lactic Acid Calcium 6.9 L Magnesium AST Alkaline Phosphatase Total Creatine Kinase CK-MB (CK-2) Troponin T C-Reactive Protein Total Protein Albumin Cholesterol LDL Cholesterol Direct HDL Cholesterol Free T4 Urine WBC (Auto) Urine Creatinine Urine Total Protein Crossmatch 08/16/18 08/16/18 08/16/18 17:23 20:01 23:13 WBC RBC Hgb Hct MCV MCH MCHC RDW Lymph % (Auto) [place] % (Auto) Eos % (Auto) Lymph # [place] # Eos # Seg Neutrophils % Seg Neuts % (Manual) Lymphocytes % (Manual) Seg Neutrophils # Seg Neutrophils # Man Lymphocytes # (Manual) Eosinophils # (Manual) PT INR APTT D-Dimer Heparin Anti-Xa Level 0.26 L POC ABG pH POC ABG pCO2 POC ABG pO2 Sodium Potassium Chloride Carbon Dioxide BUN Creatinine Glucose POC Glucose 245 H 256 H Lactic Acid Calcium Magnesium AST Alkaline Phosphatase Total Creatine Kinase CK-MB (CK-2) Troponin T C-Reactive Protein Total Protein Albumin Cholesterol LDL Cholesterol Direct HDL Cholesterol Free T4 Urine WBC (Auto) Urine Creatinine Urine Total Protein Crossmatch 08/17/18 08/17/18 08/17/18 04:29 04:55 05:34 WBC RBC Hgb 8.2 L Hct 24.3 L MCV MCH MCHC RDW Lymph % (Auto) [place] % (Auto) Eos % (Auto) Lymph # [place] # Eos # Seg Neutrophils % Seg Neuts % (Manual) Lymphocytes % (Manual) Seg Neutrophils # Seg Neutrophils # Man Lymphocytes # (Manual) Eosinophils # (Manual) PT INR APTT D-Dimer Heparin Anti-Xa Level POC ABG pH POC ABG pCO2 32.4 L POC ABG pO2 108 H Sodium Potassium Chloride Carbon Dioxide BUN Creatinine Glucose POC Glucose 268 H Lactic Acid Calcium Magnesium AST Alkaline Phosphatase Total Creatine Kinase CK-MB (CK-2) Troponin T C-Reactive Protein Total Protein Albumin Cholesterol LDL Cholesterol Direct HDL Cholesterol Free T4 Urine WBC (Auto) Urine Creatinine Urine Total Protein Crossmatch 08/17/18 08/17/18 08/17/18 11:54 13:44 17:24 WBC RBC Hgb Hct MCV MCH MCHC RDW Lymph % (Auto) [place] % (Auto) Eos % (Auto) Lymph # [place] # Eos # Seg Neutrophils % Seg Neuts % (Manual) Lymphocytes % (Manual) Seg Neutrophils # Seg Neutrophils # Man Lymphocytes # (Manual) Eosinophils # (Manual) PT INR APTT D-Dimer Heparin Anti-Xa Level POC ABG pH POC ABG pCO2 32.7 L POC ABG pO2 142 H Sodium Potassium Chloride Carbon Dioxide BUN Creatinine Glucose POC Glucose 295 H 283 H Lactic Acid Calcium Magnesium AST Alkaline Phosphatase Total Creatine Kinase CK-MB (CK-2) Troponin T C-Reactive Protein Total Protein Albumin Cholesterol LDL Cholesterol Direct HDL Cholesterol Free T4 Urine WBC (Auto) Urine Creatinine Urine Total Protein Crossmatch 08/18/18 08/18/18 08/18/18 00:05 00:59 04:15 WBC RBC Hgb Hct MCV MCH MCHC RDW Lymph % (Auto) [place] % (Auto) Eos % (Auto) Lymph # [place] # Eos # Seg Neutrophils % Seg Neuts % (Manual) Lymphocytes % (Manual) Seg Neutrophils # Seg Neutrophils # Man Lymphocytes # (Manual) Eosinophils # (Manual) PT INR APTT D-Dimer Heparin Anti-Xa Level POC ABG pH POC ABG pCO2 POC ABG pO2 115 H Sodium Potassium Chloride Carbon Dioxide BUN Creatinine Glucose POC Glucose 247 H 251 H Lactic Acid Calcium Magnesium AST Alkaline Phosphatase Total Creatine Kinase CK-MB (CK-2) Troponin T C-Reactive Protein Total Protein Albumin Cholesterol LDL Cholesterol Direct HDL Cholesterol Free T4 Urine WBC (Auto) Urine Creatinine Urine Total Protein Crossmatch 08/18/18 08/18/18 08/18/18 05:02 12:20 17:51 WBC RBC Hgb Hct MCV MCH MCHC RDW Lymph % (Auto) [place] % (Auto) Eos % (Auto) Lymph # [place] # Eos # Seg Neutrophils % Seg Neuts % (Manual) Lymphocytes % (Manual) Seg Neutrophils # Seg Neutrophils # Man Lymphocytes # (Manual) Eosinophils # (Manual) PT INR APTT D-Dimer Heparin Anti-Xa Level POC ABG pH POC ABG pCO2 POC ABG pO2 Sodium Potassium Chloride Carbon Dioxide BUN Creatinine Glucose POC Glucose 282 H 209 H 261 H Lactic Acid Calcium Magnesium AST Alkaline Phosphatase Total Creatine Kinase CK-MB (CK-2) Troponin T C-Reactive Protein Total Protein Albumin Cholesterol LDL Cholesterol Direct HDL Cholesterol Free T4 Urine WBC (Auto) Urine Creatinine Urine Total Protein Crossmatch 08/18/18 08/19/18 08/19/18 23:30 04:54 05:16 WBC RBC 2.62 L Hgb 7.5 L Hct 23.1 L MCV MCH MCHC RDW 18.1 H Lymph % (Auto) [place] % (Auto) Eos % (Auto) Lymph # [place] # Eos # Seg Neutrophils % Seg Neuts % (Manual) Lymphocytes % (Manual) Seg Neutrophils # Seg Neutrophils # Man Lymphocytes # (Manual) Eosinophils # (Manual) PT INR APTT D-Dimer Heparin Anti-Xa Level POC ABG pH POC ABG pCO2 POC ABG pO2 58 L Sodium Potassium Chloride Carbon Dioxide BUN Creatinine Glucose POC Glucose 231 H Lactic Acid Calcium Magnesium AST Alkaline Phosphatase Total Creatine Kinase CK-MB (CK-2) Troponin T C-Reactive Protein Total Protein Albumin Cholesterol LDL Cholesterol Direct HDL Cholesterol Free T4 Urine WBC (Auto) Urine Creatinine Urine Total Protein Crossmatch 08/19/18 08/19/18 08/19/18 05:16 05:40 11:56 WBC RBC Hgb Hct MCV MCH MCHC RDW Lymph % (Auto) [place] % (Auto) Eos % (Auto) Lymph # [place] # Eos # Seg Neutrophils % Seg Neuts % (Manual) Lymphocytes % (Manual) Seg Neutrophils # Seg Neutrophils # Man Lymphocytes # (Manual) Eosinophils # (Manual) PT INR APTT D-Dimer Heparin Anti-Xa Level POC ABG pH POC ABG pCO2 POC ABG pO2 Sodium 152 H D Potassium Chloride 118.7 H Carbon Dioxide BUN 38 H Creatinine Glucose 220 H POC Glucose 227 H 213 H Lactic Acid Calcium 8.1 L D Magnesium AST Alkaline Phosphatase Total Creatine Kinase CK-MB (CK-2) Troponin T C-Reactive Protein Total Protein Albumin Cholesterol LDL Cholesterol Direct HDL Cholesterol Free T4 Urine WBC (Auto) Urine Creatinine Urine Total Protein Crossmatch 08/19/18 08/19/18 08/20/18 18:37 23:32 04:38 WBC RBC Hgb Hct MCV MCH MCHC RDW Lymph % (Auto) [place] % (Auto) Eos % (Auto) Lymph # [place] # Eos # Seg Neutrophils % Seg Neuts % (Manual) Lymphocytes % (Manual) Seg Neutrophils # Seg Neutrophils # Man Lymphocytes # (Manual) Eosinophils # (Manual) PT INR APTT D-Dimer Heparin Anti-Xa Level POC ABG pH POC ABG pCO2 POC ABG pO2 140 H Sodium Potassium Chloride Carbon Dioxide BUN Creatinine Glucose POC Glucose 227 H 245 H Lactic Acid Calcium Magnesium AST Alkaline Phosphatase Total Creatine Kinase CK-MB (CK-2) Troponin T C-Reactive Protein Total Protein Albumin Cholesterol LDL Cholesterol Direct HDL Cholesterol Free T4 Urine WBC (Auto) Urine Creatinine Urine Total Protein Crossmatch 08/20/18 08/20/18 08/20/18 05:31 05:37 05:37 WBC RBC 2.60 L Hgb 7.5 L Hct 22.9 L MCV MCH MCHC RDW 18.4 H Lymph % (Auto) [place] % (Auto) Eos % (Auto) Lymph # [place] # Eos # Seg Neutrophils % Seg Neuts % (Manual) Lymphocytes % (Manual) Seg Neutrophils # Seg Neutrophils # Man Lymphocytes # (Manual) Eosinophils # (Manual) PT INR APTT D-Dimer Heparin Anti-Xa Level POC ABG pH POC ABG pCO2 POC ABG pO2 Sodium 150 H Potassium Chloride 115.6 H Carbon Dioxide BUN 38 H Creatinine Glucose 276 H POC Glucose 266 H Lactic Acid Calcium 7.9 L Magnesium AST Alkaline Phosphatase Total Creatine Kinase CK-MB (CK-2) Troponin T C-Reactive Protein Total Protein Albumin Cholesterol LDL Cholesterol Direct HDL Cholesterol Free T4 Urine WBC (Auto) Urine Creatinine Urine Total Protein Crossmatch 08/20/18 08/20/18 08/20/18 14:01 18:20 23:11 WBC RBC Hgb Hct MCV MCH MCHC RDW Lymph % (Auto) [place] % (Auto) Eos % (Auto) Lymph # [place] # Eos # Seg Neutrophils % Seg Neuts % (Manual) Lymphocytes % (Manual) Seg Neutrophils # Seg Neutrophils # Man Lymphocytes # (Manual) Eosinophils # (Manual) PT INR APTT D-Dimer Heparin Anti-Xa Level POC ABG pH POC ABG pCO2 POC ABG pO2 Sodium Potassium Chloride Carbon Dioxide BUN Creatinine Glucose POC Glucose 305 H 271 H 218 H Lactic Acid Calcium Magnesium AST Alkaline Phosphatase Total Creatine Kinase CK-MB (CK-2) Troponin T C-Reactive Protein Total Protein Albumin Cholesterol LDL Cholesterol Direct HDL Cholesterol Free T4 Urine WBC (Auto) Urine Creatinine Urine Total Protein Crossmatch 08/21/18 08/21/18 08/21/18 04:41 04:41 06:20 WBC RBC 2.65 L Hgb 7.6 L Hct 23.3 L MCV MCH MCHC RDW 19.1 H Lymph % (Auto) [place] % (Auto) Eos % (Auto) Lymph # [place] # Eos # Seg Neutrophils % Seg Neuts % (Manual) Lymphocytes % (Manual) Seg Neutrophils # Seg Neutrophils # Man Lymphocytes # (Manual) Eosinophils # (Manual) PT INR APTT D-Dimer Heparin Anti-Xa Level POC ABG pH POC ABG pCO2 POC ABG pO2 Sodium 150 H Potassium Chloride 117.8 H Carbon Dioxide BUN 37 H Creatinine Glucose 233 H POC Glucose 262 H Lactic Acid Calcium 7.9 L Magnesium AST Alkaline Phosphatase Total Creatine Kinase CK-MB (CK-2) Troponin T C-Reactive Protein Total Protein Albumin Cholesterol LDL Cholesterol Direct HDL Cholesterol Free T4 Urine WBC (Auto) Urine Creatinine Urine Total Protein Crossmatch 08/21/18 08/21/18 08/21/18 10:18 12:04 12:36 WBC RBC Hgb Hct MCV MCH MCHC RDW Lymph % (Auto) [place] % (Auto) Eos % (Auto) Lymph # [place] # Eos # Seg Neutrophils % Seg Neuts % (Manual) Lymphocytes % (Manual) Seg Neutrophils # Seg Neutrophils # Man Lymphocytes # (Manual) Eosinophils # (Manual) PT INR APTT D-Dimer Heparin Anti-Xa Level POC ABG pH POC ABG pCO2 POC ABG pO2 Sodium Potassium Chloride Carbon Dioxide BUN Creatinine Glucose POC Glucose 256 H 245 H 255 H Lactic Acid Calcium Magnesium AST Alkaline Phosphatase Total Creatine Kinase CK-MB (CK-2) Troponin T C-Reactive Protein Total Protein Albumin Cholesterol LDL Cholesterol Direct HDL Cholesterol Free T4 Urine WBC (Auto) Urine Creatinine Urine Total Protein Crossmatch 08/21/18 08/21/18 08/22/18 17:36 23:29 05:01 WBC RBC Hgb Hct MCV MCH MCHC RDW Lymph % (Auto) [place] % (Auto) Eos % (Auto) Lymph # [place] # Eos # Seg Neutrophils % Seg Neuts % (Manual) Lymphocytes % (Manual) Seg Neutrophils # Seg Neutrophils # Man Lymphocytes # (Manual) Eosinophils # (Manual) PT INR APTT D-Dimer Heparin Anti-Xa Level POC ABG pH 7.466 H POC ABG pCO2 33.8 L POC ABG pO2 111 H Sodium Potassium Chloride Carbon Dioxide BUN Creatinine Glucose POC Glucose 263 H 268 H Lactic Acid Calcium Magnesium AST Alkaline Phosphatase Total Creatine Kinase CK-MB (CK-2) Troponin T C-Reactive Protein Total Protein Albumin Cholesterol LDL Cholesterol Direct HDL Cholesterol Free T4 Urine WBC (Auto) Urine Creatinine Urine Total Protein Crossmatch 08/22/18 08/22/18 08/22/18 05:05 12:05 12:15 WBC RBC Hgb Hct MCV MCH MCHC RDW Lymph % (Auto) [place] % (Auto) Eos % (Auto) Lymph # [place] # Eos # Seg Neutrophils % Seg Neuts % (Manual) Lymphocytes % (Manual) Seg Neutrophils # Seg Neutrophils # Man Lymphocytes # (Manual) Eosinophils # (Manual) PT INR APTT D-Dimer Heparin Anti-Xa Level POC ABG pH POC ABG pCO2 POC ABG pO2 Sodium 147 H Potassium Chloride 113.2 H Carbon Dioxide BUN 36 H Creatinine Glucose 249 H POC Glucose 256 H 228 H Lactic Acid Calcium 8.2 L Magnesium AST Alkaline Phosphatase Total Creatine Kinase CK-MB (CK-2) Troponin T C-Reactive Protein Total Protein Albumin Cholesterol LDL Cholesterol Direct HDL Cholesterol Free T4 Urine WBC (Auto) Urine Creatinine Urine Total Protein Crossmatch 08/22/18 08/23/18 08/23/18 17:30 00:03 05:05 WBC RBC Hgb Hct MCV MCH MCHC RDW Lymph % (Auto) [place] % (Auto) Eos % (Auto) Lymph # [place] # Eos # Seg Neutrophils % Seg Neuts % (Manual) Lymphocytes % (Manual) Seg Neutrophils # Seg Neutrophils # Man Lymphocytes # (Manual) Eosinophils # (Manual) PT INR APTT D-Dimer Heparin Anti-Xa Level POC ABG pH POC ABG pCO2 POC ABG pO2 Sodium Potassium Chloride Carbon Dioxide BUN Creatinine Glucose POC Glucose 291 H 259 H 247 H Lactic Acid Calcium Magnesium AST Alkaline Phosphatase Total Creatine Kinase CK-MB (CK-2) Troponin T C-Reactive Protein Total Protein Albumin Cholesterol LDL Cholesterol Direct HDL Cholesterol Free T4 Urine WBC (Auto) Urine Creatinine Urine Total Protein Crossmatch 08/23/18 08/23/18 08/23/18 05:14 12:29 17:21 WBC RBC Hgb Hct MCV MCH MCHC RDW Lymph % (Auto) [place] % (Auto) Eos % (Auto) Lymph # [place] # Eos # Seg Neutrophils % Seg Neuts % (Manual) Lymphocytes % (Manual) Seg Neutrophils # Seg Neutrophils # Man Lymphocytes # (Manual) Eosinophils # (Manual) PT INR APTT D-Dimer Heparin Anti-Xa Level POC ABG pH POC ABG pCO2 POC ABG pO2 Sodium Potassium Chloride Carbon Dioxide BUN Creatinine Glucose POC Glucose 208 H 138 H 175 H Lactic Acid Calcium Magnesium AST Alkaline Phosphatase Total Creatine Kinase CK-MB (CK-2) Troponin T C-Reactive Protein Total Protein Albumin Cholesterol LDL Cholesterol Direct HDL Cholesterol Free T4 Urine WBC (Auto) Urine Creatinine Urine Total Protein Crossmatch 08/23/18 08/24/18 08/24/18 23:36 01:00 05:50 WBC RBC 2.92 L 2.90 L Hgb 8.3 L 8.2 L Hct 25.4 L 25.2 L MCV MCH MCHC RDW 18.9 H 18.6 H Lymph % (Auto) [place] % (Auto) 9.2 H Eos % (Auto) Lymph # [place] # Eos # Seg Neutrophils % Seg Neuts % (Manual) Lymphocytes % (Manual) Seg Neutrophils # Seg Neutrophils # Man Lymphocytes # (Manual) Eosinophils # (Manual) PT INR APTT D-Dimer Heparin Anti-Xa Level POC ABG pH POC ABG pCO2 POC ABG pO2 Sodium Potassium Chloride Carbon Dioxide BUN Creatinine Glucose POC Glucose 163 H Lactic Acid Calcium Magnesium AST Alkaline Phosphatase Total Creatine Kinase CK-MB (CK-2) Troponin T C-Reactive Protein Total Protein Albumin Cholesterol LDL Cholesterol Direct HDL Cholesterol Free T4 Urine WBC (Auto) Urine Creatinine Urine Total Protein Crossmatch 08/24/18 08/24/18 08/24/18 05:50 12:26 18:37 WBC RBC Hgb Hct MCV MCH MCHC RDW Lymph % (Auto) [place] % (Auto) Eos % (Auto) Lymph # [place] # Eos # Seg Neutrophils % Seg Neuts % (Manual) Lymphocytes % (Manual) Seg Neutrophils # Seg Neutrophils # Man Lymphocytes # (Manual) Eosinophils # (Manual) PT INR APTT D-Dimer Heparin Anti-Xa Level POC ABG pH POC ABG pCO2 POC ABG pO2 Sodium 147 H Potassium Chloride 113.6 H Carbon Dioxide BUN 33 H Creatinine Glucose 210 H POC Glucose 223 H 166 H Lactic Acid Calcium 8.3 L Magnesium AST Alkaline Phosphatase Total Creatine Kinase CK-MB (CK-2) Troponin T C-Reactive Protein Total Protein Albumin Cholesterol LDL Cholesterol Direct HDL Cholesterol Free T4 Urine WBC (Auto) Urine Creatinine Urine Total Protein Crossmatch 08/24/18 08/25/18 08/25/18 23:47 04:55 04:55 WBC RBC 2.94 L Hgb 8.4 L Hct 25.1 L MCV MCH MCHC RDW 18.2 H Lymph % (Auto) [place] % (Auto) Eos % (Auto) Lymph # [place] # Eos # Seg Neutrophils % Seg Neuts % (Manual) Lymphocytes % (Manual) Seg Neutrophils # Seg Neutrophils # Man Lymphocytes # (Manual) Eosinophils # (Manual) PT INR APTT D-Dimer Heparin Anti-Xa Level POC ABG pH POC ABG pCO2 POC ABG pO2 Sodium Potassium Chloride 110.2 H Carbon Dioxide BUN 30 H Creatinine Glucose POC Glucose 126 H Lactic Acid Calcium 8.1 L Magnesium AST Alkaline Phosphatase Total Creatine Kinase CK-MB (CK-2) Troponin T C-Reactive Protein Total Protein Albumin Cholesterol LDL Cholesterol Direct HDL Cholesterol Free T4 Urine WBC (Auto) Urine Creatinine Urine Total Protein Crossmatch 08/25/18 08/26/18 08/26/18 12:40 04:39 04:39 WBC RBC 2.96 L Hgb 8.3 L Hct 25.7 L MCV MCH MCHC RDW 18.2 H Lymph % (Auto) 10.5 L [place] % (Auto) 9.3 H Eos % (Auto) Lymph # 0.8 L [place] # Eos # Seg Neutrophils % 77.0 H Seg Neuts % (Manual) Lymphocytes % (Manual) Seg Neutrophils # Seg Neutrophils # Man Lymphocytes # (Manual) Eosinophils # (Manual) PT INR APTT D-Dimer Heparin Anti-Xa Level POC ABG pH POC ABG pCO2 POC ABG pO2 Sodium 147 H Potassium Chloride 113.5 H Carbon Dioxide BUN 27 H Creatinine 0.7 L Glucose 106 H POC Glucose Lactic Acid Calcium 8.0 L Magnesium AST Alkaline Phosphatase Total Creatine Kinase CK-MB (CK-2) Troponin T C-Reactive Protein Total Protein Albumin Cholesterol LDL Cholesterol Direct HDL Cholesterol Free T4 Urine WBC (Auto) > 182.0 H Urine Creatinine Urine Total Protein Crossmatch 08/26/18 08/26/18 08/26/18 05:27 09:00 09:54 WBC RBC Hgb Hct MCV MCH MCHC RDW Lymph % (Auto) [place] % (Auto) Eos % (Auto) Lymph # [place] # Eos # Seg Neutrophils % Seg Neuts % (Manual) Lymphocytes % (Manual) Seg Neutrophils # Seg Neutrophils # Man Lymphocytes # (Manual) Eosinophils # (Manual) PT INR APTT D-Dimer Heparin Anti-Xa Level POC ABG pH POC ABG pCO2 POC ABG pO2 Sodium Potassium Chloride Carbon Dioxide BUN Creatinine Glucose POC Glucose 120 H 170 H Lactic Acid Calcium Magnesium AST Alkaline Phosphatase Total Creatine Kinase CK-MB (CK-2) Troponin T C-Reactive Protein Total Protein Albumin Cholesterol LDL Cholesterol Direct HDL Cholesterol Free T4 0.51 L Urine WBC (Auto) Urine Creatinine Urine Total Protein Crossmatch 08/26/18 08/26/18 08/27/18 14:52 17:50 06:30 WBC RBC Hgb Hct MCV MCH MCHC RDW Lymph % (Auto) [place] % (Auto) Eos % (Auto) Lymph # [place] # Eos # Seg Neutrophils % Seg Neuts % (Manual) Lymphocytes % (Manual) Seg Neutrophils # Seg Neutrophils # Man Lymphocytes # (Manual) Eosinophils # (Manual) PT INR APTT D-Dimer Heparin Anti-Xa Level POC ABG pH POC ABG pCO2 POC ABG pO2 Sodium 150 H Potassium Chloride 114.8 H Carbon Dioxide BUN 24 H Creatinine 0.7 L Glucose 131 H POC Glucose 166 H 107 H Lactic Acid Calcium 7.8 L Magnesium AST Alkaline Phosphatase Total Creatine Kinase CK-MB (CK-2) Troponin T C-Reactive Protein Total Protein Albumin Cholesterol LDL Cholesterol Direct HDL Cholesterol Free T4 Urine WBC (Auto) Urine Creatinine Urine Total Protein Crossmatch 08/27/18 08/27/18 08/27/18 08:22 14:20 16:06 WBC RBC Hgb Hct MCV MCH MCHC RDW Lymph % (Auto) [place] % (Auto) Eos % (Auto) Lymph # [place] # Eos # Seg Neutrophils % Seg Neuts % (Manual) Lymphocytes % (Manual) Seg Neutrophils # Seg Neutrophils # Man Lymphocytes # (Manual) Eosinophils # (Manual) PT INR APTT D-Dimer Heparin Anti-Xa Level POC ABG pH POC ABG pCO2 POC ABG pO2 Sodium Potassium Chloride Carbon Dioxide BUN Creatinine Glucose POC Glucose 112 H 151 H 158 H Lactic Acid Calcium Magnesium AST Alkaline Phosphatase Total Creatine Kinase CK-MB (CK-2) Troponin T C-Reactive Protein Total Protein Albumin Cholesterol LDL Cholesterol Direct HDL Cholesterol Free T4 Urine WBC (Auto) Urine Creatinine Urine Total Protein Crossmatch 08/27/18 08/27/18 08/28/18 20:09 21:25 02:03 WBC RBC Hgb Hct MCV MCH MCHC RDW Lymph % (Auto) [place] % (Auto) Eos % (Auto) Lymph # [place] # Eos # Seg Neutrophils % Seg Neuts % (Manual) Lymphocytes % (Manual) Seg Neutrophils # Seg Neutrophils # Man Lymphocytes # (Manual) Eosinophils # (Manual) PT INR APTT D-Dimer Heparin Anti-Xa Level POC ABG pH POC ABG pCO2 POC ABG pO2 130 H Sodium Potassium Chloride Carbon Dioxide BUN Creatinine Glucose POC Glucose 226 H 250 H Lactic Acid Calcium Magnesium AST Alkaline Phosphatase Total Creatine Kinase CK-MB (CK-2) Troponin T C-Reactive Protein Total Protein Albumin Cholesterol LDL Cholesterol Direct HDL Cholesterol Free T4 Urine WBC (Auto) Urine Creatinine Urine Total Protein Crossmatch 08/28/18 08/28/18 08/28/18 05:56 07:15 13:17 WBC RBC Hgb Hct MCV MCH MCHC RDW Lymph % (Auto) [place] % (Auto) Eos % (Auto) Lymph # [place] # Eos # Seg Neutrophils % Seg Neuts % (Manual) Lymphocytes % (Manual) Seg Neutrophils # Seg Neutrophils # Man Lymphocytes # (Manual) Eosinophils # (Manual) PT INR APTT D-Dimer Heparin Anti-Xa Level POC ABG pH POC ABG pCO2 POC ABG pO2 Sodium Potassium Chloride Carbon Dioxide BUN Creatinine Glucose 198 H POC Glucose 221 H 188 H Lactic Acid Calcium 7.7 L Magnesium AST Alkaline Phosphatase Total Creatine Kinase CK-MB (CK-2) Troponin T C-Reactive Protein Total Protein Albumin Cholesterol LDL Cholesterol Direct HDL Cholesterol Free T4 Urine WBC (Auto) Urine Creatinine Urine Total Protein Crossmatch 08/28/18 08/28/18 08/28/18 15:53 18:12 22:35 WBC RBC Hgb Hct MCV MCH MCHC RDW Lymph % (Auto) [place] % (Auto) Eos % (Auto) Lymph # [place] # Eos # Seg Neutrophils % Seg Neuts % (Manual) Lymphocytes % (Manual) Seg Neutrophils # Seg Neutrophils # Man Lymphocytes # (Manual) Eosinophils # (Manual) PT INR APTT D-Dimer Heparin Anti-Xa Level POC ABG pH 7.457 H POC ABG pCO2 POC ABG pO2 Sodium Potassium Chloride Carbon Dioxide BUN Creatinine Glucose POC Glucose 197 H 225 H Lactic Acid Calcium Magnesium AST Alkaline Phosphatase Total Creatine Kinase CK-MB (CK-2) Troponin T C-Reactive Protein Total Protein Albumin Cholesterol LDL Cholesterol Direct HDL Cholesterol Free T4 Urine WBC (Auto) Urine Creatinine Urine Total Protein Crossmatch 08/29/18 08/29/18 08/29/18 03:04 10:47 14:25 WBC RBC Hgb Hct MCV MCH MCHC RDW Lymph % (Auto) [place] % (Auto) Eos % (Auto) Lymph # [place] # Eos # Seg Neutrophils % Seg Neuts % (Manual) Lymphocytes % (Manual) Seg Neutrophils # Seg Neutrophils # Man Lymphocytes # (Manual) Eosinophils # (Manual) PT INR APTT D-Dimer Heparin Anti-Xa Level POC ABG pH POC ABG pCO2 POC ABG pO2 Sodium Potassium Chloride Carbon Dioxide BUN Creatinine Glucose POC Glucose 223 H 371 H 266 H Lactic Acid Calcium Magnesium AST Alkaline Phosphatase Total Creatine Kinase CK-MB (CK-2) Troponin T C-Reactive Protein Total Protein Albumin Cholesterol LDL Cholesterol Direct HDL Cholesterol Free T4 Urine WBC (Auto) Urine Creatinine Urine Total Protein Crossmatch 08/29/18 08/29/18 08/29/18 16:45 17:36 21:33 WBC RBC Hgb Hct MCV MCH MCHC RDW Lymph % (Auto) [place] % (Auto) Eos % (Auto) Lymph # [place] # Eos # Seg Neutrophils % Seg Neuts % (Manual) Lymphocytes % (Manual) Seg Neutrophils # Seg Neutrophils # Man Lymphocytes # (Manual) Eosinophils # (Manual) PT INR APTT D-Dimer Heparin Anti-Xa Level POC ABG pH POC ABG pCO2 POC ABG pO2 118 H Sodium Potassium Chloride Carbon Dioxide BUN Creatinine Glucose POC Glucose 253 H 204 H Lactic Acid Calcium Magnesium AST Alkaline Phosphatase Total Creatine Kinase CK-MB (CK-2) Troponin T C-Reactive Protein Total Protein Albumin Cholesterol LDL Cholesterol Direct HDL Cholesterol Free T4 Urine WBC (Auto) Urine Creatinine Urine Total Protein Crossmatch 08/30/18 08/30/18 08/30/18 01:33 05:27 05:40 WBC RBC 3.12 L Hgb 8.5 L Hct 25.9 L MCV 83 L MCH 27 L MCHC RDW 18.3 H Lymph % (Auto) [place] % (Auto) 7.8 H Eos % (Auto) 8.8 H Lymph # [place] # Eos # 0.6 H Seg Neutrophils % Seg Neuts % (Manual) Lymphocytes % (Manual) Seg Neutrophils # Seg Neutrophils # Man Lymphocytes # (Manual) Eosinophils # (Manual) PT INR APTT D-Dimer Heparin Anti-Xa Level POC ABG pH POC ABG pCO2 POC ABG pO2 Sodium Potassium Chloride Carbon Dioxide BUN Creatinine Glucose POC Glucose 157 H 178 H Lactic Acid Calcium Magnesium AST Alkaline Phosphatase Total Creatine Kinase CK-MB (CK-2) Troponin T C-Reactive Protein Total Protein Albumin Cholesterol LDL Cholesterol Direct HDL Cholesterol Free T4 Urine WBC (Auto) Urine Creatinine Urine Total Protein Crossmatch 08/30/18 08/30/18 08/30/18 05:40 09:28 11:41 WBC RBC Hgb Hct MCV MCH MCHC RDW Lymph % (Auto) [place] % (Auto) Eos % (Auto) Lymph # [place] # Eos # Seg Neutrophils % Seg Neuts % (Manual) Lymphocytes % (Manual) Seg Neutrophils # Seg Neutrophils # Man Lymphocytes # (Manual) Eosinophils # (Manual) PT INR APTT D-Dimer Heparin Anti-Xa Level POC ABG pH POC ABG pCO2 POC ABG pO2 Sodium Potassium Chloride Carbon Dioxide BUN Creatinine 0.7 L Glucose 189 H POC Glucose 216 H 257 H Lactic Acid Calcium 8.2 L Magnesium AST 50 H Alkaline Phosphatase 158 H Total Creatine Kinase CK-MB (CK-2) Troponin T C-Reactive Protein Total Protein Albumin 1.6 L Cholesterol LDL Cholesterol Direct HDL Cholesterol Free T4 Urine WBC (Auto) Urine Creatinine Urine Total Protein Crossmatch 08/30/18 08/30/18 08/30/18 14:34 17:07 21:56 WBC RBC Hgb Hct MCV MCH MCHC RDW Lymph % (Auto) [place] % (Auto) Eos % (Auto) Lymph # [place] # Eos # Seg Neutrophils % Seg Neuts % (Manual) Lymphocytes % (Manual) Seg Neutrophils # Seg Neutrophils # Man Lymphocytes # (Manual) Eosinophils # (Manual) PT INR APTT D-Dimer Heparin Anti-Xa Level POC ABG pH POC ABG pCO2 POC ABG pO2 Sodium Potassium Chloride Carbon Dioxide BUN Creatinine Glucose POC Glucose 263 H 263 H 234 H Lactic Acid Calcium Magnesium AST Alkaline Phosphatase Total Creatine Kinase CK-MB (CK-2) Troponin T C-Reactive Protein Total Protein Albumin Cholesterol LDL Cholesterol Direct HDL Cholesterol Free T4 Urine WBC (Auto) Urine Creatinine Urine Total Protein Crossmatch 08/31/18 08/31/18 08/31/18 02:02 05:29 09:24 WBC RBC Hgb Hct MCV MCH MCHC RDW Lymph % (Auto) [place] % (Auto) Eos % (Auto) Lymph # [place] # Eos # Seg Neutrophils % Seg Neuts % (Manual) Lymphocytes % (Manual) Seg Neutrophils # Seg Neutrophils # Man Lymphocytes # (Manual) Eosinophils # (Manual) PT INR APTT D-Dimer Heparin Anti-Xa Level POC ABG pH POC ABG pCO2 POC ABG pO2 Sodium Potassium Chloride Carbon Dioxide BUN Creatinine Glucose POC Glucose 151 H 156 H 107 H Lactic Acid Calcium Magnesium AST Alkaline Phosphatase Total Creatine Kinase CK-MB (CK-2) Troponin T C-Reactive Protein Total Protein Albumin Cholesterol LDL Cholesterol Direct HDL Cholesterol Free T4 Urine WBC (Auto) Urine Creatinine Urine Total Protein Crossmatch 08/31/18 08/31/18 08/31/18 13:51 17:28 21:40 WBC RBC Hgb Hct MCV MCH MCHC RDW Lymph % (Auto) [place] % (Auto) Eos % (Auto) Lymph # [place] # Eos # Seg Neutrophils % Seg Neuts % (Manual) Lymphocytes % (Manual) Seg Neutrophils # Seg Neutrophils # Man Lymphocytes # (Manual) Eosinophils # (Manual) PT INR APTT D-Dimer Heparin Anti-Xa Level POC ABG pH POC ABG pCO2 POC ABG pO2 Sodium Potassium Chloride Carbon Dioxide BUN Creatinine Glucose POC Glucose 170 H 239 H 209 H Lactic Acid Calcium Magnesium AST Alkaline Phosphatase Total Creatine Kinase CK-MB (CK-2) Troponin T C-Reactive Protein Total Protein Albumin Cholesterol LDL Cholesterol Direct HDL Cholesterol Free T4 Urine WBC (Auto) Urine Creatinine Urine Total Protein Crossmatch 08/31/18 08/31/18 09/01/18 22:25 22:25 01:47 WBC RBC Hgb Hct MCV MCH MCHC RDW Lymph % (Auto) [place] % (Auto) Eos % (Auto) Lymph # [place] # Eos # Seg Neutrophils % Seg Neuts % (Manual) Lymphocytes % (Manual) Seg Neutrophils # Seg Neutrophils # Man Lymphocytes # (Manual) Eosinophils # (Manual) PT INR APTT D-Dimer Heparin Anti-Xa Level POC ABG pH POC ABG pCO2 45.6 H POC ABG pO2 135 H Sodium Potassium Chloride Carbon Dioxide BUN Creatinine Glucose POC Glucose 208 H 223 H Lactic Acid Calcium Magnesium AST Alkaline Phosphatase Total Creatine Kinase CK-MB (CK-2) Troponin T C-Reactive Protein Total Protein Albumin Cholesterol LDL Cholesterol Direct HDL Cholesterol Free T4 Urine WBC (Auto) Urine Creatinine Urine Total Protein Crossmatch 09/01/18 09/01/18 09/01/18 05:18 05:19 05:19 WBC RBC 3.08 L Hgb 8.5 L Hct 25.6 L MCV 83 L MCH MCHC RDW 18.7 H Lymph % (Auto) [place] % (Auto) 7.9 H Eos % (Auto) 6.1 H Lymph # [place] # Eos # Seg Neutrophils % Seg Neuts % (Manual) Lymphocytes % (Manual) Seg Neutrophils # Seg Neutrophils # Man Lymphocytes # (Manual) Eosinophils # (Manual) PT INR APTT D-Dimer Heparin Anti-Xa Level POC ABG pH POC ABG pCO2 POC ABG pO2 Sodium Potassium Chloride 107.9 H Carbon Dioxide BUN 21 H Creatinine 0.7 L Glucose 188 H POC Glucose 236 H Lactic Acid Calcium Magnesium AST Alkaline Phosphatase Total Creatine Kinase CK-MB (CK-2) Troponin T C-Reactive Protein Total Protein Albumin Cholesterol LDL Cholesterol Direct HDL Cholesterol Free T4 Urine WBC (Auto) Urine Creatinine Urine Total Protein Crossmatch 09/01/18 09/01/18 09/01/18 09:29 14:25 18:20 WBC RBC Hgb Hct MCV MCH MCHC RDW Lymph % (Auto) [place] % (Auto) Eos % (Auto) Lymph # [place] # Eos # Seg Neutrophils % Seg Neuts % (Manual) Lymphocytes % (Manual) Seg Neutrophils # Seg Neutrophils # Man Lymphocytes # (Manual) Eosinophils # (Manual) PT INR APTT D-Dimer Heparin Anti-Xa Level POC ABG pH POC ABG pCO2 POC ABG pO2 Sodium Potassium Chloride Carbon Dioxide BUN Creatinine Glucose POC Glucose 231 H 294 H 215 H Lactic Acid Calcium Magnesium AST Alkaline Phosphatase Total Creatine Kinase CK-MB (CK-2) Troponin T C-Reactive Protein Total Protein Albumin Cholesterol LDL Cholesterol Direct HDL Cholesterol Free T4 Urine WBC (Auto) Urine Creatinine Urine Total Protein Crossmatch 09/01/18 09/02/18 09/02/18 21:21 03:28 05:25 WBC RBC Hgb Hct MCV MCH MCHC RDW Lymph % (Auto) [place] % (Auto) Eos % (Auto) Lymph # [place] # Eos # Seg Neutrophils % Seg Neuts % (Manual) Lymphocytes % (Manual) Seg Neutrophils # Seg Neutrophils # Man Lymphocytes # (Manual) Eosinophils # (Manual) PT INR APTT D-Dimer Heparin Anti-Xa Level POC ABG pH POC ABG pCO2 POC ABG pO2 Sodium Potassium Chloride Carbon Dioxide BUN Creatinine Glucose POC Glucose 236 H 194 H 183 H Lactic Acid Calcium Magnesium AST Alkaline Phosphatase Total Creatine Kinase CK-MB (CK-2) Troponin T C-Reactive Protein Total Protein Albumin Cholesterol LDL Cholesterol Direct HDL Cholesterol Free T4 Urine WBC (Auto) Urine Creatinine Urine Total Protein Crossmatch 09/02/18 09/02/18 09/02/18 09:16 15:30 17:20 WBC RBC Hgb Hct MCV MCH MCHC RDW Lymph % (Auto) [place] % (Auto) Eos % (Auto) Lymph # [place] # Eos # Seg Neutrophils % Seg Neuts % (Manual) Lymphocytes % (Manual) Seg Neutrophils # Seg Neutrophils # Man Lymphocytes # (Manual) Eosinophils # (Manual) PT INR APTT D-Dimer Heparin Anti-Xa Level POC ABG pH POC ABG pCO2 POC ABG pO2 Sodium Potassium Chloride Carbon Dioxide BUN Creatinine Glucose POC Glucose 251 H 303 H 316 H Lactic Acid Calcium Magnesium AST Alkaline Phosphatase Total Creatine Kinase CK-MB (CK-2) Troponin T C-Reactive Protein Total Protein Albumin Cholesterol LDL Cholesterol Direct HDL Cholesterol Free T4 Urine WBC (Auto) Urine Creatinine Urine Total Protein Crossmatch 09/02/18 09/03/18 09/03/18 21:25 03:32 05:20 WBC RBC Hgb Hct MCV MCH MCHC RDW Lymph % (Auto) [place] % (Auto) Eos % (Auto) Lymph # [place] # Eos # Seg Neutrophils % Seg Neuts % (Manual) Lymphocytes % (Manual) Seg Neutrophils # Seg Neutrophils # Man Lymphocytes # (Manual) Eosinophils # (Manual) PT INR APTT D-Dimer Heparin Anti-Xa Level POC ABG pH POC ABG pCO2 POC ABG pO2 Sodium Potassium Chloride Carbon Dioxide BUN Creatinine Glucose POC Glucose 242 H 305 H 225 H Lactic Acid Calcium Magnesium AST Alkaline Phosphatase Total Creatine Kinase CK-MB (CK-2) Troponin T C-Reactive Protein Total Protein Albumin Cholesterol LDL Cholesterol Direct HDL Cholesterol Free T4 Urine WBC (Auto) Urine Creatinine Urine Total Protein Crossmatch 09/03/18 09/03/18 09/03/18 07:52 07:52 10:19 WBC RBC 3.29 L Hgb 9.0 L Hct 27.3 L MCV 83 L MCH 27 L MCHC RDW 18.4 H Lymph % (Auto) [place] % (Auto) Eos % (Auto) Lymph # [place] # Eos # Seg Neutrophils % Seg Neuts % (Manual) Lymphocytes % (Manual) Seg Neutrophils # Seg Neutrophils # Man Lymphocytes # (Manual) Eosinophils # (Manual) PT INR APTT D-Dimer Heparin Anti-Xa Level POC ABG pH POC ABG pCO2 POC ABG pO2 Sodium Potassium Chloride Carbon Dioxide BUN 23 H Creatinine Glucose 205 H POC Glucose 228 H Lactic Acid Calcium 7.9 L Magnesium AST Alkaline Phosphatase Total Creatine Kinase CK-MB (CK-2) Troponin T C-Reactive Protein Total Protein Albumin Cholesterol LDL Cholesterol Direct HDL Cholesterol Free T4 Urine WBC (Auto) Urine Creatinine Urine Total Protein Crossmatch 09/03/18 09/03/18 09/03/18 13:42 17:22 21:33 WBC RBC Hgb Hct MCV MCH MCHC RDW Lymph % (Auto) [place] % (Auto) Eos % (Auto) Lymph # [place] # Eos # Seg Neutrophils % Seg Neuts % (Manual) Lymphocytes % (Manual) Seg Neutrophils # Seg Neutrophils # Man Lymphocytes # (Manual) Eosinophils # (Manual) PT INR APTT D-Dimer Heparin Anti-Xa Level POC ABG pH POC ABG pCO2 POC ABG pO2 Sodium Potassium Chloride Carbon Dioxide BUN Creatinine Glucose POC Glucose 221 H 186 H 179 H Lactic Acid Calcium Magnesium AST Alkaline Phosphatase Total Creatine Kinase CK-MB (CK-2) Troponin T C-Reactive Protein Total Protein Albumin Cholesterol LDL Cholesterol Direct HDL Cholesterol Free T4 Urine WBC (Auto) Urine Creatinine Urine Total Protein Crossmatch 09/04/18 09/04/18 09/04/18 02:07 05:54 11:03 WBC RBC Hgb Hct MCV MCH MCHC RDW Lymph % (Auto) [place] % (Auto) Eos % (Auto) Lymph # [place] # Eos # Seg Neutrophils % Seg Neuts % (Manual) Lymphocytes % (Manual) Seg Neutrophils # Seg Neutrophils # Man Lymphocytes # (Manual) Eosinophils # (Manual) PT INR APTT D-Dimer Heparin Anti-Xa Level POC ABG pH POC ABG pCO2 POC ABG pO2 Sodium Potassium Chloride Carbon Dioxide BUN Creatinine Glucose POC Glucose 174 H 171 H 181 H Lactic Acid Calcium Magnesium AST Alkaline Phosphatase Total Creatine Kinase CK-MB (CK-2) Troponin T C-Reactive Protein Total Protein Albumin Cholesterol LDL Cholesterol Direct HDL Cholesterol Free T4 Urine WBC (Auto) Urine Creatinine Urine Total Protein Crossmatch 09/04/18 09/04/18 09/04/18 14:59 18:24 21:50 WBC RBC Hgb Hct MCV MCH MCHC RDW Lymph % (Auto) [place] % (Auto) Eos % (Auto) Lymph # [place] # Eos # Seg Neutrophils % Seg Neuts % (Manual) Lymphocytes % (Manual) Seg Neutrophils # Seg Neutrophils # Man Lymphocytes # (Manual) Eosinophils # (Manual) PT INR APTT D-Dimer Heparin Anti-Xa Level POC ABG pH POC ABG pCO2 POC ABG pO2 Sodium Potassium Chloride Carbon Dioxide BUN Creatinine Glucose POC Glucose 204 H 236 H 197 H Lactic Acid Calcium Magnesium AST Alkaline Phosphatase Total Creatine Kinase CK-MB (CK-2) Troponin T C-Reactive Protein Total Protein Albumin Cholesterol LDL Cholesterol Direct HDL Cholesterol Free T4 Urine WBC (Auto) Urine Creatinine Urine Total Protein Crossmatch 09/05/18 09/05/18 09/05/18 01:32 04:52 04:52 WBC RBC 3.16 L Hgb 8.7 L Hct 26.0 L MCV 82 L MCH MCHC RDW 18.9 H Lymph % (Auto) [place] % (Auto) Eos % (Auto) Lymph # [place] # Eos # Seg Neutrophils % Seg Neuts % (Manual) Lymphocytes % (Manual) Seg Neutrophils # Seg Neutrophils # Man Lymphocytes # (Manual) Eosinophils # (Manual) PT INR APTT D-Dimer Heparin Anti-Xa Level POC ABG pH POC ABG pCO2 POC ABG pO2 Sodium Potassium Chloride 107.2 H Carbon Dioxide BUN 23 H Creatinine 0.7 L Glucose 215 H POC Glucose 210 H Lactic Acid Calcium 8.3 L Magnesium AST Alkaline Phosphatase Total Creatine Kinase CK-MB (CK-2) Troponin T C-Reactive Protein Total Protein Albumin Cholesterol LDL Cholesterol Direct HDL Cholesterol Free T4 Urine WBC (Auto) Urine Creatinine Urine Total Protein Crossmatch 09/05/18 09/05/18 09/05/18 05:36 10:26 13:11 WBC RBC Hgb Hct MCV MCH MCHC RDW Lymph % (Auto) [place] % (Auto) Eos % (Auto) Lymph # [place] # Eos # Seg Neutrophils % Seg Neuts % (Manual) Lymphocytes % (Manual) Seg Neutrophils # Seg Neutrophils # Man Lymphocytes # (Manual) Eosinophils # (Manual) PT INR APTT D-Dimer Heparin Anti-Xa Level POC ABG pH POC ABG pCO2 POC ABG pO2 Sodium Potassium Chloride Carbon Dioxide BUN Creatinine Glucose POC Glucose 216 H 206 H 161 H Lactic Acid Calcium Magnesium AST Alkaline Phosphatase Total Creatine Kinase CK-MB (CK-2) Troponin T C-Reactive Protein Total Protein Albumin Cholesterol LDL Cholesterol Direct HDL Cholesterol Free T4 Urine WBC (Auto) Urine Creatinine Urine Total Protein Crossmatch 09/05/18 09/05/18 09/05/18 18:27 18:32 22:05 WBC RBC Hgb Hct MCV MCH MCHC RDW Lymph % (Auto) [place] % (Auto) Eos % (Auto) Lymph # [place] # Eos # Seg Neutrophils % Seg Neuts % (Manual) Lymphocytes % (Manual) Seg Neutrophils # Seg Neutrophils # Man Lymphocytes # (Manual) Eosinophils # (Manual) PT INR APTT D-Dimer Heparin Anti-Xa Level POC ABG pH 7.478 H POC ABG pCO2 POC ABG pO2 138 H Sodium Potassium Chloride Carbon Dioxide BUN Creatinine Glucose POC Glucose 154 H 149 H Lactic Acid Calcium Magnesium AST Alkaline Phosphatase Total Creatine Kinase CK-MB (CK-2) Troponin T C-Reactive Protein Total Protein Albumin Cholesterol LDL Cholesterol Direct HDL Cholesterol Free T4 Urine WBC (Auto) Urine Creatinine Urine Total Protein Crossmatch 09/06/18 09/06/18 09/06/18 04:40 08:30 10:06 WBC RBC Hgb Hct MCV MCH MCHC RDW Lymph % (Auto) [place] % (Auto) Eos % (Auto) Lymph # [place] # Eos # Seg Neutrophils % Seg Neuts % (Manual) Lymphocytes % (Manual) Seg Neutrophils # Seg Neutrophils # Man Lymphocytes # (Manual) Eosinophils # (Manual) PT INR APTT D-Dimer Heparin Anti-Xa Level POC ABG pH POC ABG pCO2 POC ABG pO2 Sodium Potassium Chloride Carbon Dioxide BUN Creatinine Glucose POC Glucose 140 H 188 H 199 H Lactic Acid Calcium Magnesium AST Alkaline Phosphatase Total Creatine Kinase CK-MB (CK-2) Troponin T C-Reactive Protein Total Protein Albumin Cholesterol LDL Cholesterol Direct HDL Cholesterol Free T4 Urine WBC (Auto) Urine Creatinine Urine Total Protein Crossmatch 09/06/18 09/06/18 09/06/18 12:13 14:23 17:11 WBC RBC Hgb Hct MCV MCH MCHC RDW Lymph % (Auto) [place] % (Auto) Eos % (Auto) Lymph # [place] # Eos # Seg Neutrophils % Seg Neuts % (Manual) Lymphocytes % (Manual) Seg Neutrophils # Seg Neutrophils # Man Lymphocytes # (Manual) Eosinophils # (Manual) PT INR APTT D-Dimer Heparin Anti-Xa Level POC ABG pH POC ABG pCO2 POC ABG pO2 Sodium Potassium Chloride Carbon Dioxide BUN Creatinine Glucose POC Glucose 177 H 180 H 216 H Lactic Acid Calcium Magnesium AST Alkaline Phosphatase Total Creatine Kinase CK-MB (CK-2) Troponin T C-Reactive Protein Total Protein Albumin Cholesterol LDL Cholesterol Direct HDL Cholesterol Free T4 Urine WBC (Auto) Urine Creatinine Urine Total Protein Crossmatch 09/06/18 09/07/18 09/07/18 21:47 02:02 04:55 WBC RBC 3.08 L Hgb 8.5 L Hct 25.2 L MCV 82 L MCH MCHC RDW 18.8 H Lymph % (Auto) [place] % (Auto) Eos % (Auto) Lymph # 0.8 L [place] # Eos # Seg Neutrophils % 84.8 H Seg Neuts % (Manual) Lymphocytes % (Manual) Seg Neutrophils # Seg Neutrophils # Man Lymphocytes # (Manual) Eosinophils # (Manual) PT INR APTT D-Dimer Heparin Anti-Xa Level POC ABG pH POC ABG pCO2 POC ABG pO2 Sodium Potassium Chloride Carbon Dioxide BUN Creatinine Glucose POC Glucose 275 H 291 H Lactic Acid Calcium Magnesium AST Alkaline Phosphatase Total Creatine Kinase CK-MB (CK-2) Troponin T C-Reactive Protein Total Protein Albumin Cholesterol LDL Cholesterol Direct HDL Cholesterol Free T4 Urine WBC (Auto) Urine Creatinine Urine Total Protein Crossmatch 09/07/18 09/07/18 09/07/18 04:55 06:02 10:27 WBC RBC Hgb Hct MCV MCH MCHC RDW Lymph % (Auto) [place] % (Auto) Eos % (Auto) Lymph # [place] # Eos # Seg Neutrophils % Seg Neuts % (Manual) Lymphocytes % (Manual) Seg Neutrophils # Seg Neutrophils # Man Lymphocytes # (Manual) Eosinophils # (Manual) PT INR APTT D-Dimer Heparin Anti-Xa Level POC ABG pH POC ABG pCO2 POC ABG pO2 Sodium Potassium Chloride Carbon Dioxide BUN 30 H Creatinine 0.7 L Glucose 291 H POC Glucose 320 H 365 H Lactic Acid Calcium Magnesium AST Alkaline Phosphatase Total Creatine Kinase CK-MB (CK-2) Troponin T C-Reactive Protein Total Protein Albumin Cholesterol LDL Cholesterol Direct HDL Cholesterol Free T4 Urine WBC (Auto) Urine Creatinine Urine Total Protein Crossmatch 09/07/18 09/07/18 09/07/18 13:52 17:12 21:29 WBC RBC Hgb Hct MCV MCH MCHC RDW Lymph % (Auto) [place] % (Auto) Eos % (Auto) Lymph # [place] # Eos # Seg Neutrophils % Seg Neuts % (Manual) Lymphocytes % (Manual) Seg Neutrophils # Seg Neutrophils # Man Lymphocytes # (Manual) Eosinophils # (Manual) PT INR APTT D-Dimer Heparin Anti-Xa Level POC ABG pH POC ABG pCO2 POC ABG pO2 Sodium Potassium Chloride Carbon Dioxide BUN Creatinine Glucose POC Glucose 364 H 338 H 242 H Lactic Acid Calcium Magnesium AST Alkaline Phosphatase Total Creatine Kinase CK-MB (CK-2) Troponin T C-Reactive Protein Total Protein Albumin Cholesterol LDL Cholesterol Direct HDL Cholesterol Free T4 Urine WBC (Auto) Urine Creatinine Urine Total Protein Crossmatch 09/07/18 09/08/18 09/08/18 22:24 02:02 04:22 WBC 14.8 H RBC 3.15 L Hgb 8.5 L Hct 26.3 L MCV 83 L MCH 27 L MCHC RDW 19.6 H Lymph % (Auto) [place] % (Auto) Eos % (Auto) Lymph # [place] # Eos # Seg Neutrophils % Seg Neuts % (Manual) Lymphocytes % (Manual) Seg Neutrophils # Seg Neutrophils # Man Lymphocytes # (Manual) Eosinophils # (Manual) PT INR APTT D-Dimer Heparin Anti-Xa Level POC ABG pH 7.484 H POC ABG pCO2 POC ABG pO2 61 L Sodium Potassium Chloride Carbon Dioxide BUN Creatinine Glucose POC Glucose 324 H Lactic Acid Calcium Magnesium AST Alkaline Phosphatase Total Creatine Kinase CK-MB (CK-2) Troponin T C-Reactive Protein Total Protein Albumin Cholesterol LDL Cholesterol Direct HDL Cholesterol Free T4 Urine WBC (Auto) Urine Creatinine Urine Total Protein Crossmatch 09/08/18 09/08/18 09/08/18 04:22 05:33 09:40 WBC RBC Hgb Hct MCV MCH MCHC RDW Lymph % (Auto) [place] % (Auto) Eos % (Auto) Lymph # [place] # Eos # Seg Neutrophils % Seg Neuts % (Manual) Lymphocytes % (Manual) Seg Neutrophils # Seg Neutrophils # Man Lymphocytes # (Manual) Eosinophils # (Manual) PT INR APTT D-Dimer Heparin Anti-Xa Level POC ABG pH POC ABG pCO2 POC ABG pO2 Sodium Potassium Chloride Carbon Dioxide BUN 39 H Creatinine Glucose 320 H POC Glucose 324 H 329 H Lactic Acid Calcium 8.3 L Magnesium AST Alkaline Phosphatase Total Creatine Kinase CK-MB (CK-2) Troponin T C-Reactive Protein Total Protein Albumin Cholesterol LDL Cholesterol Direct HDL Cholesterol Free T4 Urine WBC (Auto) Urine Creatinine Urine Total Protein Crossmatch 09/08/18 09/08/18 09/08/18 13:11 18:02 21:27 WBC RBC Hgb Hct MCV MCH MCHC RDW Lymph % (Auto) [place] % (Auto) Eos % (Auto) Lymph # [place] # Eos # Seg Neutrophils % Seg Neuts % (Manual) Lymphocytes % (Manual) Seg Neutrophils # Seg Neutrophils # Man Lymphocytes # (Manual) Eosinophils # (Manual) PT INR APTT D-Dimer Heparin Anti-Xa Level POC ABG pH POC ABG pCO2 POC ABG pO2 Sodium Potassium Chloride Carbon Dioxide BUN Creatinine Glucose POC Glucose 369 H 331 H 304 H Lactic Acid Calcium Magnesium AST Alkaline Phosphatase Total Creatine Kinase CK-MB (CK-2) Troponin T C-Reactive Protein Total Protein Albumin Cholesterol LDL Cholesterol Direct HDL Cholesterol Free T4 Urine WBC (Auto) Urine Creatinine Urine Total Protein Crossmatch 09/09/18 09/09/18 09/09/18 02:03 05:29 09:20 WBC RBC Hgb Hct MCV MCH MCHC RDW Lymph % (Auto) [place] % (Auto) Eos % (Auto) Lymph # [place] # Eos # Seg Neutrophils % Seg Neuts % (Manual) Lymphocytes % (Manual) Seg Neutrophils # Seg Neutrophils # Man Lymphocytes # (Manual) Eosinophils # (Manual) PT INR APTT D-Dimer Heparin Anti-Xa Level POC ABG pH POC ABG pCO2 POC ABG pO2 Sodium Potassium Chloride Carbon Dioxide BUN Creatinine Glucose POC Glucose 361 H 204 H 292 H Lactic Acid Calcium Magnesium AST Alkaline Phosphatase Total Creatine Kinase CK-MB (CK-2) Troponin T C-Reactive Protein Total Protein Albumin Cholesterol LDL Cholesterol Direct HDL Cholesterol Free T4 Urine WBC (Auto) Urine Creatinine Urine Total Protein Crossmatch 09/09/18 09/09/18 09/09/18 14:20 15:04 18:08 WBC RBC Hgb Hct MCV MCH MCHC RDW Lymph % (Auto) [place] % (Auto) Eos % (Auto) Lymph # [place] # Eos # Seg Neutrophils % Seg Neuts % (Manual) Lymphocytes % (Manual) Seg Neutrophils # Seg Neutrophils # Man Lymphocytes # (Manual) Eosinophils # (Manual) PT INR APTT D-Dimer Heparin Anti-Xa Level POC ABG pH 7.464 H POC ABG pCO2 POC ABG pO2 109 H Sodium Potassium Chloride Carbon Dioxide BUN Creatinine Glucose POC Glucose 253 H 196 H Lactic Acid Calcium Magnesium AST Alkaline Phosphatase Total Creatine Kinase CK-MB (CK-2) Troponin T C-Reactive Protein Total Protein Albumin Cholesterol LDL Cholesterol Direct HDL Cholesterol Free T4 Urine WBC (Auto) Urine Creatinine Urine Total Protein Crossmatch 09/09/18 09/10/18 09/10/18 22:23 02:32 06:10 WBC RBC Hgb Hct MCV MCH MCHC RDW Lymph % (Auto) [place] % (Auto) Eos % (Auto) Lymph # [place] # Eos # Seg Neutrophils % Seg Neuts % (Manual) Lymphocytes % (Manual) Seg Neutrophils # Seg Neutrophils # Man Lymphocytes # (Manual) Eosinophils # (Manual) PT INR APTT D-Dimer Heparin Anti-Xa Level POC ABG pH POC ABG pCO2 POC ABG pO2 Sodium Potassium Chloride Carbon Dioxide BUN Creatinine Glucose POC Glucose 245 H 238 H 250 H Lactic Acid Calcium Magnesium AST Alkaline Phosphatase Total Creatine Kinase CK-MB (CK-2) Troponin T C-Reactive Protein Total Protein Albumin Cholesterol LDL Cholesterol Direct HDL Cholesterol Free T4 Urine WBC (Auto) Urine Creatinine Urine Total Protein Crossmatch 09/10/18 09/10/18 09/10/18 08:16 11:35 21:18 WBC RBC Hgb Hct MCV MCH MCHC RDW Lymph % (Auto) [place] % (Auto) Eos % (Auto) Lymph # [place] # Eos # Seg Neutrophils % Seg Neuts % (Manual) Lymphocytes % (Manual) Seg Neutrophils # Seg Neutrophils # Man Lymphocytes # (Manual) Eosinophils # (Manual) PT INR APTT D-Dimer Heparin Anti-Xa Level POC ABG pH POC ABG pCO2 POC ABG pO2 Sodium Potassium Chloride Carbon Dioxide BUN Creatinine Glucose POC Glucose 232 H 267 H 270 H Lactic Acid Calcium Magnesium AST Alkaline Phosphatase Total Creatine Kinase CK-MB (CK-2) Troponin T C-Reactive Protein Total Protein Albumin Cholesterol LDL Cholesterol Direct HDL Cholesterol Free T4 Urine WBC (Auto) Urine Creatinine Urine Total Protein Crossmatch 09/11/18 09/11/18 09/11/18 06:21 07:49 12:02 WBC RBC Hgb Hct MCV MCH MCHC RDW Lymph % (Auto) [place] % (Auto) Eos % (Auto) Lymph # [place] # Eos # Seg Neutrophils % Seg Neuts % (Manual) Lymphocytes % (Manual) Seg Neutrophils # Seg Neutrophils # Man Lymphocytes # (Manual) Eosinophils # (Manual) PT INR APTT D-Dimer Heparin Anti-Xa Level POC ABG pH POC ABG pCO2 POC ABG pO2 Sodium Potassium Chloride Carbon Dioxide BUN Creatinine Glucose POC Glucose 255 H 233 H 200 H Lactic Acid Calcium Magnesium AST Alkaline Phosphatase Total Creatine Kinase CK-MB (CK-2) Troponin T C-Reactive Protein Total Protein Albumin Cholesterol LDL Cholesterol Direct HDL Cholesterol Free T4 Urine WBC (Auto) Urine Creatinine Urine Total Protein Crossmatch 09/11/18 09/11/18 09/11/18 16:35 21:09 22:33 WBC 12.1 H RBC 3.16 L Hgb 8.5 L Hct 26.2 L MCV 83 L MCH 27 L MCHC RDW 20.7 H Lymph % (Auto) [place] % (Auto) Eos % (Auto) Lymph # [place] # Eos # Seg Neutrophils % Seg Neuts % (Manual) 77.0 H Lymphocytes % (Manual) 13.0 L Seg Neutrophils # Seg Neutrophils # Man 9.3 H Lymphocytes # (Manual) Eosinophils # (Manual) 0.5 H PT INR APTT D-Dimer Heparin Anti-Xa Level POC ABG pH POC ABG pCO2 POC ABG pO2 Sodium Potassium Chloride Carbon Dioxide BUN Creatinine Glucose POC Glucose 210 H 256 H Lactic Acid Calcium Magnesium AST Alkaline Phosphatase Total Creatine Kinase CK-MB (CK-2) Troponin T C-Reactive Protein Total Protein Albumin Cholesterol LDL Cholesterol Direct HDL Cholesterol Free T4 Urine WBC (Auto) Urine Creatinine Urine Total Protein Crossmatch 09/11/18 09/12/18 09/12/18 23:59 05:07 05:07 WBC RBC 2.89 L Hgb 7.9 L Hct 23.9 L MCV 83 L MCH 27 L MCHC RDW 20.1 H Lymph % (Auto) [place] % (Auto) 7.8 H Eos % (Auto) Lymph # [place] # 0.9 H Eos # Seg Neutrophils % 70.2 H Seg Neuts % (Manual) Lymphocytes % (Manual) Seg Neutrophils # Seg Neutrophils # Man Lymphocytes # (Manual) Eosinophils # (Manual) PT INR APTT D-Dimer Heparin Anti-Xa Level POC ABG pH POC ABG pCO2 POC ABG pO2 Sodium 149 H D Potassium 3.5 L Chloride 110.6 H Carbon Dioxide BUN 32 H Creatinine Glucose 222 H POC Glucose 267 H Lactic Acid Calcium 8.2 L Magnesium AST Alkaline Phosphatase Total Creatine Kinase CK-MB (CK-2) Troponin T C-Reactive Protein Total Protein Albumin Cholesterol LDL Cholesterol Direct HDL Cholesterol Free T4 Urine WBC (Auto) Urine Creatinine Urine Total Protein Crossmatch 09/12/18 09/12/18 09/12/18 05:36 07:22 11:18 WBC RBC Hgb Hct MCV MCH MCHC RDW Lymph % (Auto) [place] % (Auto) Eos % (Auto) Lymph # [place] # Eos # Seg Neutrophils % Seg Neuts % (Manual) Lymphocytes % (Manual) Seg Neutrophils # Seg Neutrophils # Man Lymphocytes # (Manual) Eosinophils # (Manual) PT INR APTT D-Dimer Heparin Anti-Xa Level POC ABG pH POC ABG pCO2 POC ABG pO2 Sodium Potassium Chloride Carbon Dioxide BUN Creatinine Glucose POC Glucose 251 H 210 H 202 H Lactic Acid Calcium Magnesium AST Alkaline Phosphatase Total Creatine Kinase CK-MB (CK-2) Troponin T C-Reactive Protein Total Protein Albumin Cholesterol LDL Cholesterol Direct HDL Cholesterol Free T4 Urine WBC (Auto) Urine Creatinine Urine Total Protein Crossmatch 09/12/18 09/12/18 09/12/18 16:12 18:24 22:09 WBC RBC Hgb Hct MCV MCH MCHC RDW Lymph % (Auto) [place] % (Auto) Eos % (Auto) Lymph # [place] # Eos # Seg Neutrophils % Seg Neuts % (Manual) Lymphocytes % (Manual) Seg Neutrophils # Seg Neutrophils # Man Lymphocytes # (Manual) Eosinophils # (Manual) PT INR APTT D-Dimer Heparin Anti-Xa Level POC ABG pH POC ABG pCO2 POC ABG pO2 Sodium Potassium Chloride Carbon Dioxide BUN Creatinine Glucose POC Glucose 209 H 212 H 173 H Lactic Acid Calcium Magnesium AST Alkaline Phosphatase Total Creatine Kinase CK-MB (CK-2) Troponin T C-Reactive Protein Total Protein Albumin Cholesterol LDL Cholesterol Direct HDL Cholesterol Free T4 Urine WBC (Auto) Urine Creatinine Urine Total Protein Crossmatch 09/13/18 09/13/18 09/13/18 02:25 05:54 07:06 WBC RBC 3.00 L Hgb 8.2 L Hct 24.9 L MCV 83 L MCH 27 L MCHC RDW 21.2 H Lymph % (Auto) [place] % (Auto) 9.6 H Eos % (Auto) 7.6 H Lymph # [place] # Eos # 0.7 H Seg Neutrophils % Seg Neuts % (Manual) Lymphocytes % (Manual) Seg Neutrophils # Seg Neutrophils # Man Lymphocytes # (Manual) Eosinophils # (Manual) PT INR APTT D-Dimer Heparin Anti-Xa Level POC ABG pH POC ABG pCO2 POC ABG pO2 Sodium Potassium Chloride Carbon Dioxide BUN Creatinine Glucose POC Glucose 167 H 178 H Lactic Acid Calcium Magnesium AST Alkaline Phosphatase Total Creatine Kinase CK-MB (CK-2) Troponin T C-Reactive Protein Total Protein Albumin Cholesterol LDL Cholesterol Direct HDL Cholesterol Free T4 Urine WBC (Auto) Urine Creatinine Urine Total Protein Crossmatch 09/13/18 09/13/18 09/13/18 07:06 09:46 14:18 WBC RBC Hgb Hct MCV MCH MCHC RDW Lymph % (Auto) [place] % (Auto) Eos % (Auto) Lymph # [place] # Eos # Seg Neutrophils % Seg Neuts % (Manual) Lymphocytes % (Manual) Seg Neutrophils # Seg Neutrophils # Man Lymphocytes # (Manual) Eosinophils # (Manual) PT INR APTT D-Dimer Heparin Anti-Xa Level POC ABG pH POC ABG pCO2 POC ABG pO2 Sodium 146 H Potassium 3.3 L Chloride 107.6 H Carbon Dioxide BUN 26 H Creatinine Glucose 138 H POC Glucose 157 H 177 H Lactic Acid Calcium 8.0 L Magnesium AST Alkaline Phosphatase Total Creatine Kinase CK-MB (CK-2) Troponin T C-Reactive Protein Total Protein Albumin Cholesterol LDL Cholesterol Direct HDL Cholesterol Free T4 Urine WBC (Auto) Urine Creatinine Urine Total Protein Crossmatch 09/13/18 09/13/18 09/14/18 17:21 22:19 02:19 WBC RBC Hgb Hct MCV MCH MCHC RDW Lymph % (Auto) [place] % (Auto) Eos % (Auto) Lymph # [place] # Eos # Seg Neutrophils % Seg Neuts % (Manual) Lymphocytes % (Manual) Seg Neutrophils # Seg Neutrophils # Man Lymphocytes # (Manual) Eosinophils # (Manual) PT INR APTT D-Dimer Heparin Anti-Xa Level POC ABG pH POC ABG pCO2 POC ABG pO2 Sodium Potassium Chloride Carbon Dioxide BUN Creatinine Glucose POC Glucose 169 H 141 H 176 H Lactic Acid Calcium Magnesium AST Alkaline Phosphatase Total Creatine Kinase CK-MB (CK-2) Troponin T C-Reactive Protein Total Protein Albumin Cholesterol LDL Cholesterol Direct HDL Cholesterol Free T4 Urine WBC (Auto) Urine Creatinine Urine Total Protein Crossmatch 09/14/18 09/14/18 09/14/18 05:01 10:22 14:30 WBC RBC Hgb Hct MCV MCH MCHC RDW Lymph % (Auto) [place] % (Auto) Eos % (Auto) Lymph # [place] # Eos # Seg Neutrophils % Seg Neuts % (Manual) Lymphocytes % (Manual) Seg Neutrophils # Seg Neutrophils # Man Lymphocytes # (Manual) Eosinophils # (Manual) PT INR APTT D-Dimer Heparin Anti-Xa Level POC ABG pH POC ABG pCO2 POC ABG pO2 Sodium Potassium Chloride Carbon Dioxide BUN Creatinine Glucose POC Glucose 181 H 201 H 172 H Lactic Acid Calcium Magnesium AST Alkaline Phosphatase Total Creatine Kinase CK-MB (CK-2) Troponin T C-Reactive Protein Total Protein Albumin Cholesterol LDL Cholesterol Direct HDL Cholesterol Free T4 Urine WBC (Auto) Urine Creatinine Urine Total Protein Crossmatch 09/14/18 09/14/18 09/15/18 17:29 22:25 03:40 WBC RBC Hgb Hct MCV MCH MCHC RDW Lymph % (Auto) [place] % (Auto) Eos % (Auto) Lymph # [place] # Eos # Seg Neutrophils % Seg Neuts % (Manual) Lymphocytes % (Manual) Seg Neutrophils # Seg Neutrophils # Man Lymphocytes # (Manual) Eosinophils # (Manual) PT INR APTT D-Dimer Heparin Anti-Xa Level POC ABG pH POC ABG pCO2 POC ABG pO2 Sodium Potassium Chloride Carbon Dioxide BUN Creatinine Glucose POC Glucose 142 H 207 H 188 H Lactic Acid Calcium Magnesium AST Alkaline Phosphatase Total Creatine Kinase CK-MB (CK-2) Troponin T C-Reactive Protein Total Protein Albumin Cholesterol LDL Cholesterol Direct HDL Cholesterol Free T4 Urine WBC (Auto) Urine Creatinine Urine Total Protein Crossmatch Allied health notes reviewed: nursing
[2018-09-15] MEDS: NORVASC FEEDTUBE SCH (10:17)
[2018-09-15] MEDS: PEPCID PO SCH ×2 (10:17→22:28)
[2018-09-15] MEDS: SENOKOT S PO SCH (10:17)
[2018-09-15] MEDS: KEPPRA PO SCH ×2 (10:17→22:27)
[2018-09-15] MEDS: ASPIRIN PO SCH (10:17)
[2018-09-15] MEDS: ROCEPHIN/NS 1 GM/50 ML 1 GM/50 ML BAG IV SCH (10:41)
--- NOTE | 2018-09-15 14:43 | Progress Note ---
Assessment and Plan Assessment and plan: Patient is 77 yo man from [facility] with a history of respiratory failure, CVA with tracheostomy and Gtube who presented to [facility] ED following cardiac arrest after being found unresponsive at the residential. Time down is unknown per records. The patient is on the vent and unresponsive, all history is obtained from the chart. Patient had multiple episodes of arrest/pulselessness. He has been on the vent since then without any improvement. Per ER notes the patient was bagged via tracheostomy which continued to have low tidal volumes and so the patient with orally intubated after which tidal volumes improved. I spoke with and daughter, Felicita and they believe that he aspirated with a mucus plug that caused the cardiopulmonary arrest not NSTEMI.. Initially, he went to [facility] may 05 to june 05, he had fluid on brain and multiple strokes per family and they drained the fluid off the brain. The trach was placed at [facility] and patient went to [facility], x 7 weeks (trach was changed where capped was placed), he was doing well, talking and sitting up. Then he went to [facility], August 03 and his oral care was horrible. The trach care was horrible and not enough suctioning done. Mouth with copious amount of crud. Then on August 12, Friday, he had voice changing and mucus plugging. Followed by respiratory arrest. The IA brain flow scan showed reduced blood flow. Patient had evaluation by neurology who reports patient with intact brainstem function. Patient still comatose, no improvement. LTAC was recommended but denied. Sepsis: Previously Resolved with treating UTI. Patient had been off antibiotics. However with new temperature spike 09/10/18. Blood cultures are negative. Will continue with Rocephin. Cardiopulmonary arrest x 3: Most likely related to mucus plugging >NSTEMI, leading to severe irreversible brain damage: supportive care, CCM following. Acute on chronic respiratory failure Trach has been removed when patient was orally intubated, continue ventilator management per pulmonology. Tracheostomy was replaced by surgery on 08/25/18. Tracheostomy care, airway clearance, secretion management Right pneumothorax, resolved. Status post chest tube, mgt per pulmonology Hypoxic encephalopathy: neurology consult appreciated, poor prognosis, poor likelihood of recovery, preserved brain stem function otherwise unresponsive. EEG is suggestive hypoxic encephalopathy. Seizure disorder with breakthrough seizures. Continue Keppra twice a day. Seizure precautions. Hypertension. Hydralazine 100 mg 3 times a day, cont norvasc Hypernatremia, Continue free water via G-tube, sp hypotonic IV solution, monitor bmp closely Acute kidney injury likely due to ATN Nephrology following, continue IV fluid, avoid renal toxic agents NSTEMI: treated with IV heparin, asa, statin, no bblocker due to bradycardia, hypotension, Cardiology is following Severe protein calorie malnutrition: Dietitian consulted, continue tube feedings Type 2 dm with persistent hyperglycemia: cont insulins and adjust according, on tube feedings Anemia: s/p transfusion Urinary retention: continue douglass, condom cath DVT prophylaxis; patient is fully anticoagulated on heparin drip Disposition; pending placement to SNF, Discussed with CM. History Interval history: patient was seen and evaluated this morning. patient is on trach, and comatose. Hospitalist Physical - Physical exam Narrative exam: Patient is on tracheostomy tube. The patient appeared well nourished and normally developed. Vital signs as documented. Head exam is unremarkable. No scleral icterus . Neck is without jugular venous distension, thyromegaly, or carotid bruits. Lungs are clear to auscultation. Cardiac exam reveals regular rate and Rhythm. First and second heart sounds normal. No murmurs, rubs or gallops. Abdominal exam reveals PEG tube in place. Extremities are nonedematous and both femoral and pedal pulses are normal. [employer]:patient is comatose. - Constitutional Vitals: Temp Pulse Resp BP Pulse Ox 100.0 F H 81 22 142/50 94 09/15/18 13:03 09/15/18 13:03 09/15/18 13:03 09/15/18 13:03 09/15/18 13:03 General appearance: Present: other (twitching, nonresponsive, intubated) Results - Labs CBC & Chem 7: 09/13/18 07:06 09/13/18 07:06 Labs: Laboratory Last Values WBC 8.7 K/mm3 (4.5-11.0) 09/13/18 07:06 RBC 3.00 M/mm3 (3.65-5.03) L 09/13/18 07:06 Hgb 8.2 gm/dl (11.8-15.2) L 09/13/18 07:06 Hct 24.9 % (35.5-45.6) L 09/13/18 07:06 MCV 83 fl (84-94) L 09/13/18 07:06 MCH 27 pg (28-32) L 09/13/18 07:06 MCHC 33 % (32-34) 09/13/18 07:06 RDW 21.2 % (13.2-15.2) H 09/13/18 07:06 Plt Count 300 K/mm3 (140-440) 09/13/18 07:06 Lymph % (Auto) 21.6 % (13.4-35.0) 09/13/18 07:06 Ceiba % (Auto) 9.6 % (0.0-7.3) H 09/13/18 07:06 Eos % (Auto) 7.6 % (0.0-4.3) H 09/13/18 07:06 Baso % (Auto) 0.4 % (0.0-1.8) 09/13/18 07:06 Lymph # 1.9 K/mm3 (1.2-5.4) 09/13/18 07:06 Ceiba # 0.8 K/mm3 (0.0-0.8) 09/13/18 07:06 Eos # 0.7 K/mm3 (0.0-0.4) H 09/13/18 07:06 Baso # 0.0 K/mm3 (0.0-0.1) 09/13/18 07:06 Add Manual Diff Complete 09/11/18 22:33 Total Counted 100 09/11/18 22:33 Seg Neutrophils % 60.8 % (40.0-70.0) 09/13/18 07:06 Seg Neuts % (Manual) 77.0 % (40.0-70.0) H 09/11/18 22:33 0 % 09/11/18 22:33 13.0 % (13.4-35.0) L 09/11/18 22:33 Reactive Lymphs % (Man) 0 % 09/11/18 22:33 6.0 % (0.0-7.3) 09/11/18 22:33 4.0 % (0.0-4.3) 09/11/18 22:33 0 % (0.0-1.8) 09/11/18 22:33 0 % 09/11/18 22:33 0 % 09/11/18 22:33 0 % 09/11/18 22:33 0 % 09/11/18 22:33 Nucleated RBC % Not Reportable 09/11/18 22:33 Seg Neutrophils # 5.3 K/mm3 (1.8-7.7) 09/13/18 07:06 Seg Neutrophils # Man 9.3 K/mm3 (1.8-7.7) H 09/11/18 22:33 Band Neutrophils # 0.0 K/mm3 09/11/18 22:33 1.6 K/mm3 (1.2-5.4) 09/11/18 22:33 Abs React Lymphs (Man) 0.0 K/mm3 09/11/18 22:33 0.7 K/mm3 (0.0-0.8) 09/11/18 22:33 0.5 K/mm3 (0.0-0.4) H 09/11/18 22:33 0.0 K/mm3 (0.0-0.1) 09/11/18 22:33 0.0 K/mm3 09/11/18 22:33 0.0 K/mm3 09/11/18 22:33 0.0 K/mm3 09/11/18 22:33 Blast Cells # 0.0 K/mm3 09/11/18 22:33 WBC Morphology Not Reportable 09/11/18 22:33 Hypersegmented Neuts Not Reportable 09/11/18 22:33 Hyposegmented Neuts Not Reportable 09/11/18 22:33 Hypogranular Neuts Not Reportable 09/11/18 22:33 Not Reportable 09/11/18 22:33 Not Reportable 09/11/18 22:33 Not Reportable 09/11/18 22:33 Not Reportable 09/11/18 22:33 Not Reportable 09/11/18 22:33 Not Reportable 09/11/18 22:33 Appears normal 09/11/18 22:33 Not Reportable 09/11/18 22:33 Plt Clumps, EDTA Not Reportable 09/11/18 22:33 Not Reportable 09/11/18 22:33 Not Reportable 09/11/18 22:33 Not Reportable 09/11/18 22:33 Plt Morphology Comment Not Reportable 09/11/18 22:33 RBC Morphology Not Reportable 09/11/18 22:33 Dimorphic RBCs Not Reportable 09/11/18 22:33 Not Reportable 09/11/18 22:33 Not Reportable 09/11/18 22:33 Few 09/11/18 22:33 1+ 09/11/18 22:33 Not Reportable 09/11/18 22:33 Not Reportable 09/11/18 22:33 Not Reportable 09/11/18 22:33 Not Reportable 09/11/18 22:33 Not Reportable 09/11/18 22:33 Not Reportable 09/11/18 22:33 Not Reportable 09/11/18 22:33 Not Reportable 09/11/18 22:33 Not Reportable 09/11/18 22:33 Not Reportable 09/11/18 22:33 Not Reportable 09/11/18 22:33 Not Reportable 09/11/18 22:33 Not Reportable 09/11/18 22:33 Not Reportable 09/11/18 22:33 Not Reportable 09/11/18 22:33 Acanthocytes (Spur) Not Reportable 09/11/18 22:33 Rouleaux Not Reportable 09/11/18 22:33 Not Reportable 09/11/18 22:33 Not Reportable 09/11/18 22:33 Not Reportable 09/11/18 22:33 Not Reportable 09/11/18 22:33 Hem Pathologist Commnt No 09/11/18 22:33 PT 16.5 Sec. (12.2-14.9) H 08/13/18 00:47 INR 1.25 (0.87-1.13) H 08/13/18 00:47 APTT 79.0 Sec. (24.2-36.6) H* 08/15/18 06:35 2742.50 ng/mlDDU (0-234) H 08/13/18 20:07 Heparin Anti-Xa Level 0.26 U.I./ml (0.3-0.7) L 08/16/18 20:01 POC ABG pH 7.447 (7.35-7.45) 09/12/18 19:33 POC ABG pCO2 44.5 (35-45) 09/12/18 19:33 POC ABG pO2 88 (80-105) 09/12/18 19:33 POC ABG HCO3 30.7 (22-26 mml/L) 09/12/18 19:33 POC ABG Total CO2 32 (23-27mmol/L) 09/12/18 19:33 POC ABG O2 Sat 97 09/12/18 19:33 POC ABG Base Excess 7 ((-2) - (+3)mmol/L) 09/12/18 19:33 28 % 09/12/18 19:33 Sodium 146 mmol/L (137-145) H 09/13/18 07:06 Potassium 3.3 mmol/L (3.6-5.0) L 09/13/18 07:06 Chloride 107.6 mmol/L (98-107) H 09/13/18 07:06 Carbon Dioxide 29 mmol/L (22-30) 09/13/18 07:06 13 mmol/L 09/13/18 07:06 BUN 26 mg/dL (9-20) H 09/13/18 07:06 0.8 mg/dL (0.8-1.5) 09/13/18 07:06 Estimated GFR > 60 ml/min 09/13/18 07:06 33 % 09/13/18 07:06 Glucose 138 mg/dL (75-100) H 09/13/18 07:06 POC Glucose 191 (70-105) H 09/15/18 10:43 Lactic Acid 2.80 mmol/L (0.7-2.0) H* 08/13/18 12:53 Calcium 8.0 mg/dL (8.4-10.2) L 09/13/18 07:06 Phosphorus 3.90 mg/dL (2.5-4.5) 08/15/18 04:05 Magnesium 1.70 mg/dL (1.7-2.3) 09/06/18 14:35 < 0.20 mg/dL (0.1-1.2) 08/30/18 05:40 AST 50 units/L (5-40) H 08/30/18 05:40 ALT 31 units/L (7-56) 08/30/18 05:40 158 units/L (35-129) H 08/30/18 05:40 309 units/L (55-170) H 08/13/18 10:10 CK-MB (CK-2) 4.1 ng/mL (0.0-4.0) H 08/13/18 10:10 CK-MB (CK-2) Rel Index 1.3 (0-4) 08/13/18 10:10 0.409 ng/mL (0.00-0.029) H* 08/14/18 04:03 16.90 mg/dL (0.00-1.30) H 08/13/18 12:53 6.4 g/dL (6.3-8.2) 08/30/18 05:40 1.6 g/dL (3.9-5) L 08/30/18 05:40 0.3 % 08/30/18 05:40 Triglycerides 62 mg/dL (2-149) 08/13/18 00:32 Cholesterol 46 mg/dL (50-199) L 08/13/18 00:32 17 mg/dL (50-130) L 08/13/18 00:32 6 mg/dL (40-59) L 08/13/18 00:32 7.66 % 08/13/18 00:32 TSH 0.973 mlU/mL (0.270-4.200) 08/26/18 09:00 Free T4 0.51 ng/dL (0.76-1.46) L 08/26/18 09:00 Yellow (Yellow) 08/25/18 12:40 Turbid (Clear) 08/25/18 12:40 7.0 (5.0-7.0) 08/25/18 12:40 Ur Specific [place] 1.009 (1.003-1.030) 08/25/18 12:40 100 mg/dl mg/dL (Negative) 08/25/18 12:40 Neg mg/dL (Negative) 08/25/18 12:40 Neg mg/dL (Negative) 08/25/18 12:40 Mod (Negative) 08/25/18 12:40 Neg (Negative) 08/25/18 12:40 Neg (Negative) 08/25/18 12:40 < 2.0 mg/dL (<2.0) 08/25/18 12:40 Ur Leukocyte Esterase Lg (Negative) 08/25/18 12:40 > 182.0 /HPF (0.0-6.0) H 08/25/18 12:40 10.0 /HPF (0.0-6.0) 08/25/18 12:40 U Epithel Cells (Auto) 5.0 /HPF (0-13.0) 08/25/18 12:40 2+ /HPF (Negative) 08/13/18 00:50 3+ /HPF 08/25/18 12:40 None seen (None Seen) 08/14/18 17:20 60.9 mg/dL (0.1-20.0) H 08/14/18 17:20 32 mmol/L 08/14/18 17:20 64 mg/dL (5-11.8) H 08/14/18 17:20 Presumptive negative 08/12/18 21:30 Presumptive negative 08/12/18 21:30 Ur Barbiturates Screen Presumptive negative 08/12/18 21:30 Ur Phencyclidine Scrn Presumptive negative 08/12/18 21:30 Ur Amphetamines Screen Presumptive negative 08/12/18 21:30 U Benzodiazepines Scrn Presumptive negative 08/12/18 21:30 Presumptive negative 08/12/18 21:30 U Marijuana (THC) Screen Presumptive negative 08/12/18 21:30 Disclamer 08/12/18 21:30 Blood Type O POSITIVE 08/15/18 15:31 Antibody Screen Negative 08/15/18 15:31 Crossmatch See Detail 08/15/18 15:31 Active Medications - Current Medications Current Medications: Generic Name Dose Route Start Last Admin Trade Name Freq PRN Reason Stop Dose Admin Acetaminophen 650 mg 08/13/18 11:40 09/10/18 23:47 Tylenol PO 650 mg Q6H PRN Administration Fever >101 Amlodipine Besylate 5 mg 09/02/18 10:00 09/15/18 10:17 Norvasc FEEDTUBE 5 mg QDAY [facility] Administration Lipase/Protease/Amylase 1 each 09/10/18 17:12 Pancregarrett Alas 10,500 Unit FEEDTUBE PRN PRN For Clogged Feeding Tube Aspirin 325 mg 08/17/18 10:00 09/15/18 10:17 Aspirin PO 325 mg QDAY LENCHO Administration Atorvastatin Calcium 40 mg 08/14/18 22:00 09/14/18 23:59 Lipitor PO 40 mg QHS ELNCHO Administration Dextrose 50 ml 08/13/18 01:34 D50w (25gm) Syringe IV PRN PRN Hypoglycemia Enoxaparin Sodium 40 mg 08/17/18 22:00 09/14/18 23:59 Lovenox SUB-Q 40 mg QDAY@2200 LENCHO Administration Famotidine 20 mg 08/19/18 10:00 09/15/18 10:17 Pepcid PO 20 mg BID LENCHO Administration Hydralazine HCl 100 mg 09/02/18 09:00 09/15/18 13:54 Apresoline PO 100 mg Q8HR LENCHO Administration Hydralazine HCl 20 mg 09/02/18 08:16 Apresoline IV Q4HR PRN SBP>160 or DBP>110 Hydrophilic Ointment 1 applic 08/13/18 12:21 Vaseline Lip Therapy TP Q2HR PRN Dry Lips Ceftriaxone Sodium 1 gm in 50 mls @ 100 mls/hr 09/12/18 10:00 09/15/18 10:41 Rocephin/Ns 1 Gm/50 Ml IV 09/18/18 10:29 100 mls/hr Q24HR LENCHO Administration Protocol Insulin Glargine 45 units 09/08/18 22:00 09/14/18 23:58 Lantus SUB-Q 45 units QHS LENCHO Administration Insulin Human Lispro 0 unit 08/26/18 10:00 09/15/18 10:46 Humalog SUB-Q 2 unit Q4HR LENCHO Administration Protocol Levetiracetam 500 mg 08/27/18 22:00 09/15/18 10:17 Keppra PO 500 mg BID LENCHO Administration Multi-Ingred Cream/Lotion/Oil/Oint 1 applic 08/13/18 12:21 08/17/18 00:41 Artificial Tears Ophth Oint OU 1 applic Q4HR PRN Administration Dry Eye(s) Ondansetron HCl 4 mg 08/13/18 01:34 Zofran IV Q8H PRN Nausea And Vomiting Senna/Docusate Sodium 2 tab 09/07/18 14:00 09/15/18 10:17 Senokot S PO 2 tab DAILY LENCHO Administration Simple Syrup 15 ml 09/10/18 17:12 Simple Syrup FEEDTUBE PRN PRN Hypoglycemia Simple Syrup 30 ml 09/10/18 17:12 Simple Syrup FEEDTUBE PRN PRN Hypoglycemia Sodium Bicarbonate 325 mg 09/10/18 17:12 Sodium Bicarbonate FEEDTUBE PRN PRN For Clogged Feeding Tube Sodium Chloride 10 ml 08/13/18 10:00 09/15/18 10:42 Sodium Chloride Flush Syringe 10 Ml IV 10 ml BID LENCHO Administration Sodium Chloride 10 ml 08/13/18 01:34 08/30/18 22:29 Sodium Chloride Flush Syringe 10 Ml IV 10 ml PRN PRN Administration LINE FLUSH Nutrition/Malnutrition Assess - Dietary Evaluation Nutrition/Malnutrition Findings: Nutrition Notes Start: 08/13/18 15:41 Freq: Status: Active Protocol: Document 09/10/18 16:59 RM (Rec: 09/10/18 17:12 RM [id number]) Nutrition Notes Initial or Follow up Reassessment Current Diagnosis Acute Kidney Injury,Diabetes Other Pertinent Diagnosis Trach,Hx CVA,PEG, Sacral PU, Multiple PU, Anoxic brain injury,R pneumothorax Current Diet Vital 1.2 at 60 ml/hr Labs/Tests Na 141 (09/08/18) Pertinent Medications Reviewed Height 5 ft 8 in Weight 81.4 kg [place] Body Weight (kg) 70.00 BMI 27.3 Subjective/Other Information Observed Jevity 1.2 infusing at 60 ml/hr. Per nurse pt is tolerating TF. Percent of energy/protein needs met: 95%/92% Burn Absent Trauma Absent #1 Nutrition Diagnosis Inadequate oral intake Diagnosis Progress(for reassessment Continues documentation) Is patient on ventilator? No Is Patient Ambulatory and/or Out of Bed No REE-([facility]-confined to bed) 0432.415 Calculation Used for Recommendations [facility] Additional Notes Protein Needs: 87-122g (1.2-1. 5g/kg) Fluid Needs: 1 ml/kcal Nutrition Intervention Nutrition Support: Jevity 1.2 at 60 ml/hr. Water flush 100 mls q 4 hrs. Kcal 1,728 Protein (gm) 80 Fluid (mL) 1,162 Add Supplement/Snack (indicate name/kcal Magen BID /protein ) Provides kCal: 190 Provides Protein (gm) 5 Goal #1 Continue to meet at least 75% of calorie and protein needs via TF Anticipated Discharge Needs: Jevity 1.2 Follow-Up By: 09/16/18 Additional Comments Follow for TF tolerance
[2018-09-15] MEDS: LOVENOX SUB-Q SCH (22:28)
[2018-09-15] MEDS: LANTUS SUB-Q SCH (22:28)
[2018-09-16] MEDS: HumaLOG SUB-Q SCH ×6 (02:09→22:25)
[2018-09-16] MEDS: TYLENOL PO PRN (03:56)
[2018-09-16] MEDS: APRESOLINE PO SCH ×3 (06:49→22:26)
[2018-09-16] MEDS: PEPCID PO SCH ×2 (09:34→22:26)
[2018-09-16] MEDS: NORVASC FEEDTUBE SCH (09:34)
[2018-09-16] MEDS: SENOKOT S PO SCH (09:34)
[2018-09-16] MEDS: KEPPRA PO SCH ×2 (09:34→22:26)
[2018-09-16] MEDS: ASPIRIN PO SCH (09:35)
[2018-09-16] MEDS: SODIUM CHLORIDE FLUSH SYRINGE 10 ML IV SCH ×2 (09:35→22:26)
[2018-09-16] MEDS: ROCEPHIN/NS 1 GM/50 ML 1 GM/50 ML BAG IV SCH (09:56)
[2018-09-16] MEDS ORDERED: POTASSIUM CHLORIDE FEEDTUBE ONE (13:52)
--- NOTE | 2018-09-16 13:52 | Progress Note ---
Assessment and Plan Assessment and plan: Patient is 77 yo man from [facility] with a history of respiratory failure, CVA with tracheostomy and Gtube who presented to [facility] ED following cardiac arrest after being found unresponsive at the residential. Time down is unknown per records. The patient is on the vent and unresponsive, all history is obtained from the chart. Patient had multiple episodes of arrest/pulselessness. He has been on the vent since then without any improvement. Per ER notes the patient was bagged via tracheostomy which continued to have low tidal volumes and so the patient with orally intubated after which tidal volumes improved. I spoke with and daughter, Felicita and they believe that he aspirated with a mucus plug that caused the cardiopulmonary arrest not NSTEMI.. Initially, he went to [facility] may 05 to june 05, he had fluid on brain and multiple strokes per family and they drained the fluid off the brain. The trach was placed at [facility] and patient went to [facility], x 7 weeks (trach was changed where capped was placed), he was doing well, talking and sitting up. Then he went to [facility], August 03 and his oral care was horrible. The trach care was horrible and not enough suctioning done. Mouth with copious amount of crud. Then on August 12, Friday, he had voice changing and mucus plugging. Followed by respiratory arrest. The CA brain flow scan showed reduced blood flow. Patient had evaluation by neurology who reports patient with intact brainstem function. Patient still comatose, no improvement. LTAC was recommended but denied. Sepsis: Previously Resolved with treating UTI. Patient had been off antibiotics. However with new temperature spike 09/10/18. Blood cultures are negative. Will continue with Rocephin. patient's temp is 100. Cardiopulmonary arrest x 3: Most likely related to mucus plugging >NSTEMI, leading to severe irreversible brain damage: supportive care, CCM following. Acute on chronic respiratory failure Trach has been removed when patient was orally intubated, continue ventilator management per pulmonology. Tracheostomy was replaced by surgery on 08/25/18. Tracheostomy care, airway clearance, secretion management Right pneumothorax, resolved. Status post chest tube, mgt per pulmonology Hypoxic encephalopathy: neurology consult appreciated, poor prognosis, poor likelihood of recovery, preserved brain stem function otherwise unresponsive. EEG is suggestive hypoxic encephalopathy. Seizure disorder with breakthrough seizures. Continue Keppra twice a day. Seizure precautions. Hypertension. Hydralazine 100 mg 3 times a day, cont norvasc Hypernatremia, Continue free water via G-tube, sp hypotonic IV solution, monitor bmp closely. Improving. Acute kidney injury likely due to ATN Nephrology following, continue IV fluid, avoid renal toxic agents. Resolved. NSTEMI: treated with IV heparin, asa, statin, no bblocker due to bradycardia, hypotension, Cardiology is following Severe protein calorie malnutrition: Dietitian consulted, continue tube feedings Type 2 dm with persistent hyperglycemia: cont insulins and adjust according, on tube feedings Anemia: s/p transfusion Urinary retention: continue douglass, condom cath DVT prophylaxis; on lovenox. Disposition; pending placement to SNF, Discussed with CM. History Interval history: patient was seen and evaluated this morning. patient is on trach, and comatose. I have discussed the management plan in detail with patient's who were in the room during my examination. Hospitalist Physical - Physical exam Narrative exam: Patient is on tracheostomy tube. The patient appeared well nourished and normally developed. Vital signs as documented. Head exam is unremarkable. No scleral icterus . Neck is without jugular venous distension, thyromegaly, or carotid bruits. Lungs are clear to auscultation. Cardiac exam reveals regular rate and Rhythm. Abdominal exam reveals PEG tube in place. Extremities are nonedematous and both femoral and pedal pulses are normal. [employer]:patient is comatose. - Constitutional Vitals: Temp Pulse Resp BP Pulse Ox 99.5 F 89 20 123/50 95 09/16/18 07:48 09/16/18 10:00 09/16/18 10:00 09/16/18 07:48 09/16/18 13:16 General appearance: Present: other (twitching, nonresponsive, intubated) Results - Labs CBC & Chem 7: 09/13/18 07:06 09/13/18 07:06 Labs: Laboratory Last Values WBC 8.7 K/mm3 (4.5-11.0) 09/13/18 07:06 RBC 3.00 M/mm3 (3.65-5.03) L 09/13/18 07:06 Hgb 8.2 gm/dl (11.8-15.2) L 09/13/18 07:06 Hct 24.9 % (35.5-45.6) L 09/13/18 07:06 MCV 83 fl (84-94) L 09/13/18 07:06 MCH 27 pg (28-32) L 09/13/18 07:06 MCHC 33 % (32-34) 09/13/18 07:06 RDW 21.2 % (13.2-15.2) H 09/13/18 07:06 Plt Count 300 K/mm3 (140-440) 09/13/18 07:06 Lymph % (Auto) 21.6 % (13.4-35.0) 09/13/18 07:06 [place] % (Auto) 9.6 % (0.0-7.3) H 09/13/18 07:06 Eos % (Auto) 7.6 % (0.0-4.3) H 09/13/18 07:06 Baso % (Auto) 0.4 % (0.0-1.8) 09/13/18 07:06 Lymph # 1.9 K/mm3 (1.2-5.4) 09/13/18 07:06 [place] # 0.8 K/mm3 (0.0-0.8) 09/13/18 07:06 Eos # 0.7 K/mm3 (0.0-0.4) H 09/13/18 07:06 Baso # 0.0 K/mm3 (0.0-0.1) 09/13/18 07:06 Add Manual Diff Complete 09/11/18 22:33 Total Counted 100 09/11/18 22:33 Seg Neutrophils % 60.8 % (40.0-70.0) 09/13/18 07:06 Seg Neuts % (Manual) 77.0 % (40.0-70.0) H 09/11/18 22:33 0 % 09/11/18 22:33 13.0 % (13.4-35.0) L 09/11/18 22:33 Reactive Lymphs % (Man) 0 % 09/11/18 22:33 6.0 % (0.0-7.3) 09/11/18 22:33 4.0 % (0.0-4.3) 09/11/18 22:33 0 % (0.0-1.8) 09/11/18 22:33 0 % 09/11/18 22:33 0 % 09/11/18 22:33 0 % 09/11/18 22:33 0 % 09/11/18 22:33 Nucleated RBC % Not Reportable 09/11/18 22:33 Seg Neutrophils # 5.3 K/mm3 (1.8-7.7) 09/13/18 07:06 Seg Neutrophils # Man 9.3 K/mm3 (1.8-7.7) H 09/11/18 22:33 Band Neutrophils # 0.0 K/mm3 09/11/18 22:33 1.6 K/mm3 (1.2-5.4) 09/11/18 22:33 Abs React Lymphs (Man) 0.0 K/mm3 09/11/18 22:33 0.7 K/mm3 (0.0-0.8) 09/11/18 22:33 0.5 K/mm3 (0.0-0.4) H 09/11/18 22:33 0.0 K/mm3 (0.0-0.1) 09/11/18 22:33 0.0 K/mm3 09/11/18 22:33 0.0 K/mm3 09/11/18 22:33 0.0 K/mm3 09/11/18 22:33 Blast Cells # 0.0 K/mm3 09/11/18 22:33 WBC Morphology Not Reportable 09/11/18 22:33 Hypersegmented Neuts Not Reportable 09/11/18 22:33 Hyposegmented Neuts Not Reportable 09/11/18 22:33 Hypogranular Neuts Not Reportable 09/11/18 22:33 Not Reportable 09/11/18 22:33 Not Reportable 09/11/18 22:33 Not Reportable 09/11/18 22:33 Not Reportable 09/11/18 22:33 Not Reportable 09/11/18 22:33 Not Reportable 09/11/18 22:33 Appears normal 09/11/18 22:33 Not Reportable 09/11/18 22:33 Plt Clumps, EDTA Not Reportable 09/11/18 22:33 Not Reportable 09/11/18 22:33 Not Reportable 09/11/18 22:33 Not Reportable 09/11/18 22:33 Plt Morphology Comment Not Reportable 09/11/18 22:33 RBC Morphology Not Reportable 09/11/18 22:33 Dimorphic RBCs Not Reportable 09/11/18 22:33 Not Reportable 09/11/18 22:33 Not Reportable 09/11/18 22:33 Few 09/11/18 22:33 1+ 09/11/18 22:33 Not Reportable 09/11/18 22:33 Not Reportable 09/11/18 22:33 Not Reportable 09/11/18 22:33 Not Reportable 09/11/18 22:33 Not Reportable 09/11/18 22:33 Not Reportable 09/11/18 22:33 Not Reportable 09/11/18 22:33 Not Reportable 09/11/18 22:33 Not Reportable 09/11/18 22:33 Not Reportable 09/11/18 22:33 Not Reportable 09/11/18 22:33 Not Reportable 09/11/18 22:33 Not Reportable 09/11/18 22:33 Not Reportable 09/11/18 22:33 Not Reportable 09/11/18 22:33 Acanthocytes (Spur) Not Reportable 09/11/18 22:33 Rouleaux Not Reportable 09/11/18 22:33 Not Reportable 09/11/18 22:33 Not Reportable 09/11/18 22:33 Not Reportable 09/11/18 22:33 Not Reportable 09/11/18 22:33 Hem Pathologist Commnt No 09/11/18 22:33 PT 16.5 Sec. (12.2-14.9) H 08/13/18 00:47 INR 1.25 (0.87-1.13) H 08/13/18 00:47 APTT 79.0 Sec. (24.2-36.6) H* 08/15/18 06:35 2742.50 ng/mlDDU (0-234) H 08/13/18 20:07 Heparin Anti-Xa Level 0.26 U.I./ml (0.3-0.7) L 08/16/18 20:01 POC ABG pH 7.447 (7.35-7.45) 09/12/18 19:33 POC ABG pCO2 44.5 (35-45) 09/12/18 19:33 POC ABG pO2 88 (80-105) 09/12/18 19:33 POC ABG HCO3 30.7 (22-26 mml/L) 09/12/18 19:33 POC ABG Total CO2 32 (23-27mmol/L) 09/12/18 19:33 POC ABG O2 Sat 97 09/12/18 19:33 POC ABG Base Excess 7 ((-2) - (+3)mmol/L) 09/12/18 19:33 28 % 09/12/18 19:33 Sodium 146 mmol/L (137-145) H 09/13/18 07:06 Potassium 3.3 mmol/L (3.6-5.0) L 09/13/18 07:06 Chloride 107.6 mmol/L (98-107) H 09/13/18 07:06 Carbon Dioxide 29 mmol/L (22-30) 09/13/18 07:06 13 mmol/L 09/13/18 07:06 BUN 26 mg/dL (9-20) H 09/13/18 07:06 0.8 mg/dL (0.8-1.5) 09/13/18 07:06 Estimated GFR > 60 ml/min 09/13/18 07:06 33 % 09/13/18 07:06 Glucose 138 mg/dL (75-100) H 09/13/18 07:06 POC Glucose 212 (70-105) H 09/16/18 09:45 Lactic Acid 2.80 mmol/L (0.7-2.0) H* 08/13/18 12:53 Calcium 8.0 mg/dL (8.4-10.2) L 09/13/18 07:06 Phosphorus 3.90 mg/dL (2.5-4.5) 08/15/18 04:05 Magnesium 1.70 mg/dL (1.7-2.3) 09/06/18 14:35 < 0.20 mg/dL (0.1-1.2) 08/30/18 05:40 AST 50 units/L (5-40) H 08/30/18 05:40 ALT 31 units/L (7-56) 08/30/18 05:40 158 units/L (35-129) H 08/30/18 05:40 309 units/L (55-170) H 08/13/18 10:10 CK-MB (CK-2) 4.1 ng/mL (0.0-4.0) H 08/13/18 10:10 CK-MB (CK-2) Rel Index 1.3 (0-4) 08/13/18 10:10 0.409 ng/mL (0.00-0.029) H* 08/14/18 04:03 16.90 mg/dL (0.00-1.30) H 08/13/18 12:53 6.4 g/dL (6.3-8.2) 08/30/18 05:40 1.6 g/dL (3.9-5) L 08/30/18 05:40 0.3 % 08/30/18 05:40 Triglycerides 62 mg/dL (2-149) 08/13/18 00:32 Cholesterol 46 mg/dL (50-199) L 08/13/18 00:32 17 mg/dL (50-130) L 08/13/18 00:32 6 mg/dL (40-59) L 08/13/18 00:32 7.66 % 08/13/18 00:32 TSH 0.973 mlU/mL (0.270-4.200) 08/26/18 09:00 Free T4 0.51 ng/dL (0.76-1.46) L 08/26/18 09:00 Yellow (Yellow) 08/25/18 12:40 Turbid (Clear) 08/25/18 12:40 7.0 (5.0-7.0) 08/25/18 12:40 Ur Specific [place] 1.009 (1.003-1.030) 08/25/18 12:40 100 mg/dl mg/dL (Negative) 08/25/18 12:40 Neg mg/dL (Negative) 08/25/18 12:40 Neg mg/dL (Negative) 08/25/18 12:40 Mod (Negative) 08/25/18 12:40 Neg (Negative) 08/25/18 12:40 Neg (Negative) 08/25/18 12:40 < 2.0 mg/dL (<2.0) 08/25/18 12:40 Ur Leukocyte Esterase Lg (Negative) 08/25/18 12:40 > 182.0 /HPF (0.0-6.0) H 08/25/18 12:40 10.0 /HPF (0.0-6.0) 08/25/18 12:40 U Epithel Cells (Auto) 5.0 /HPF (0-13.0) 08/25/18 12:40 2+ /HPF (Negative) 08/13/18 00:50 3+ /HPF 08/25/18 12:40 None seen (None Seen) 08/14/18 17:20 60.9 mg/dL (0.1-20.0) H 08/14/18 17:20 32 mmol/L 08/14/18 17:20 64 mg/dL (5-11.8) H 08/14/18 17:20 Presumptive negative 08/12/18 21:30 Presumptive negative 08/12/18 21:30 Ur Barbiturates Screen Presumptive negative 08/12/18 21:30 Ur Phencyclidine Scrn Presumptive negative 08/12/18 21:30 Ur Amphetamines Screen Presumptive negative 08/12/18 21:30 U Benzodiazepines Scrn Presumptive negative 08/12/18 21:30 Presumptive negative 08/12/18 21:30 U Marijuana (THC) Screen Presumptive negative 08/12/18 21:30 Disclamer 08/12/18 21:30 Blood Type O POSITIVE 08/15/18 15:31 Antibody Screen Negative 08/15/18 15:31 Crossmatch See Detail 08/15/18 15:31 Active Medications - Current Medications Current Medications: Generic Name Dose Route Start Last Admin Trade Name Freq PRN Reason Stop Dose Admin Acetaminophen 650 mg 08/13/18 11:40 09/16/18 03:56 Tylenol PO 650 mg Q6H PRN Administration Fever >101 Amlodipine Besylate 5 mg 09/02/18 10:00 09/16/18 09:34 Norvasc FEEDTUBE 5 mg QDAY LENCHO Administration Lipase/Protease/Amylase 1 each 09/10/18 17:[address] 10,500 Unit FEEDTUBE PRN PRN For Clogged Feeding Tube Aspirin 325 mg 08/17/18 10:00 09/16/18 09:35 Aspirin PO 325 mg QDAY LENCHO Administration Atorvastatin Calcium 40 mg 08/14/18 22:00 09/15/18 22:27 Lipitor PO 40 mg QHS LENCHO Administration Dextrose 50 ml 08/13/18 01:34 D50w (25gm) Syringe IV PRN PRN Hypoglycemia Enoxaparin Sodium 40 mg 08/17/18 22:00 09/15/18 22:28 Lovenox SUB-Q 40 mg QDAY@2200 LENCHO Administration Famotidine 20 mg 08/19/18 10:00 09/16/18 09:34 Pepcid PO 20 mg BID LENCHO Administration Hydralazine HCl 100 mg 09/02/18 09:00 09/16/18 06:49 Apresoline PO 100 mg Q8HR LENCHO Administration Hydralazine HCl 20 mg 09/02/18 08:16 Apresoline IV Q4HR PRN SBP>160 or DBP>110 Hydrophilic Ointment 1 applic 08/13/18 12:21 Vaseline Lip Therapy TP Q2HR PRN Dry Lips Ceftriaxone Sodium 1 gm in 50 mls @ 100 mls/hr 09/12/18 10:00 09/16/18 09:56 Rocephin/Ns 1 Gm/50 Ml IV 09/18/18 10:29 100 mls/hr Q24HR LENCHO Administration Protocol Insulin Glargine 45 units 09/08/18 22:00 09/15/18 22:28 Lantus SUB-Q 45 units QHS LENCHO Administration Insulin Human Lispro 0 unit 08/26/18 10:00 09/16/18 09:54 Humalog SUB-Q 3 unit Q4HR LENCHO Administration Protocol Levetiracetam 500 mg 08/27/18 22:00 09/16/18 09:34 Keppra PO 500 mg BID LENCHO Administration Multi-Ingred Cream/Lotion/Oil/Oint 1 applic 08/13/18 12:21 08/17/18 00:41 Artificial Tears Ophth Oint OU 1 applic Q4HR PRN Administration Dry Eye(s) Ondansetron HCl 4 mg 08/13/18 01:34 Zofran IV Q8H PRN Nausea And Vomiting Senna/Docusate Sodium 2 tab 09/07/18 14:00 09/16/18 09:34 Senokot S PO 2 tab DAILY LENCHO Administration Simple Syrup 15 ml 09/10/18 17:12 Simple Syrup FEEDTUBE PRN PRN Hypoglycemia Simple Syrup 30 ml 09/10/18 17:12 Simple Syrup FEEDTUBE PRN PRN Hypoglycemia Sodium Bicarbonate 325 mg 09/10/18 17:12 Sodium Bicarbonate FEEDTUBE PRN PRN For Clogged Feeding Tube Sodium Chloride 10 ml 08/13/18 10:00 09/16/18 09:35 Sodium Chloride Flush Syringe 10 Ml IV 10 ml BID LENCHO Administration Sodium Chloride 10 ml 08/13/18 01:34 08/30/18 22:29 Sodium Chloride Flush Syringe 10 Ml IV 10 ml PRN PRN Administration LINE FLUSH Nutrition/Malnutrition Assess - Dietary Evaluation Nutrition/Malnutrition Findings: Nutrition Notes Start: 08/13/18 15:41 Freq: Status: Active Protocol: Document 09/10/18 16:59 RM (Rec: 09/10/18 17:12 RM [id number]) Nutrition Notes Initial or Follow up Reassessment Current Diagnosis Acute Kidney Injury,Diabetes Other Pertinent Diagnosis Trach,Hx CVA,PEG, Sacral PU, Multiple PU, Anoxic brain injury,R pneumothorax Current Diet Vital 1.2 at 60 ml/hr Labs/Tests Na 141 (09/08/18) Pertinent Medications Reviewed Height 5 ft 8 in Weight 81.4 kg [place] Body Weight (kg) 70.00 BMI 27.3 Subjective/Other Information Observed Jevity 1.2 infusing at 60 ml/hr. Per nurse pt is tolerating TF. Percent of energy/protein needs met: 95%/92% Burn Absent Trauma Absent #1 Nutrition Diagnosis Inadequate oral intake Diagnosis Progress(for reassessment Continues documentation) Is patient on ventilator? No Is Patient Ambulatory and/or Out of Bed No REE-([facility]-confined to bed) 8825.914 Calculation Used for Recommendations [facility] Additional Notes Protein Needs: 87-122g (1.2-1. 5g/kg) Fluid Needs: 1 ml/kcal Nutrition Intervention Nutrition Support: Jevity 1.2 at 60 ml/hr. Water flush 100 mls q 4 hrs. Kcal 1,728 Protein (gm) 80 Fluid (mL) 1,162 Add Supplement/Snack (indicate name/kcal Magen BID /protein ) Provides kCal: 190 Provides Protein (gm) 5 Goal #1 Continue to meet at least 75% of calorie and protein needs via TF Anticipated Discharge Needs: Jevity 1.2 Follow-Up By: 09/16/18 Additional Comments Follow for TF tolerance
--- NOTE | 2018-09-16 18:11 | Progress Note ---
Assessment and Plan Patient is sleeping on T-Tube FiO2 28%. O2 Sat 98%. No acute respiratory distress. Not responding to verbal stimuli. Patient running low grade temp.No leukocytosis. Patient is on ceftrioxone. - Patient Problems (1) Acute and chronic respiratory failure Current Visit: Yes Status: Acute Qualifiers: Respiratory failure complication: hypoxia Qualified Code(s): J96.21 - Acute and chronic respiratory failure with hypoxia Plan to address problem: S/p Tracheostomy. T tube FIO2 28%. Recommend albuterol/atrovent aerosol treatments q 6 hours. Continue S/C lovenox. Continue Famotidine. (2) Altered mental state Current Visit: Yes Status: Acute Plan to address problem: Management as per primary care and neurology. (3) Cardiac arrest Current Visit: Yes Status: Acute Plan to address problem: Patient sucessfully resucitated. Presently resting on T tube. (4) ACS (acute coronary syndrome) Current Visit: Yes Status: Acute Plan to address problem: Management as per cardiology. (5) MAYLIN (acute kidney injury) Current Visit: Yes Status: Acute Plan to address problem: Management as per nephrology. (6) Anemia Current Visit: Yes Status: Acute Plan to address problem: Management as per primary care and hematology. (7) Essential (primary) hypertension Current Visit: Yes Status: Acute Plan to address problem: Management as per primary care. (8) Pulmonary infiltrate Current Visit: Yes Status: Acute Plan to address problem: Reported perihilar and basilar infiltrate. Patient chest X-ray decreased left lung infiltrates. Patient has low grade temp. Patient has no leukocytosis. Patient is on Ceftrioxone. Subjective Date of service: 09/16/18 Principal diagnosis: Acute hypoxemic resp failure; S/P cardiac arrest; Seizures; DM II; H/O CVA Interval history: Patient is sleeping on T-Tube FiO2 28%. O2 Sat 98%. No acute respiratory distress. Not responding to verbal stimuli. Patient running low grade temp.No leukocytosis. Patient is on ceftrioxone. Objective Vital Signs - 12hr 09/16/18 09/16/18 09/16/18 07:22 07:48 10:00 Temperature 99.5 F Pulse Rate 89 Pulse Rate [ 89 Apical] Respiratory 20 20 Rate Blood Pressure 123/50 O2 Sat by Pulse 95 96 96 Oximetry O2 Sat by Pulse 92 Oximetry [ Assessment] 09/16/18 09/16/18 13:16 13:42 Temperature 99.5 F Pulse Rate 80 Pulse Rate [ Apical] Respiratory 22 Rate Blood Pressure 136/56 O2 Sat by Pulse 95 98 Oximetry O2 Sat by Pulse Oximetry [ Assessment] Constitutional: no acute distress, asleep, other (Elderly looking AAM, normocephalic resting in bed on MVS) Eyes: non-icteric, injected, other (+periorbital swelling) ENT: oropharynx moist Neck: supple, no lymphadenopathy, no JVD, other (s/p tracheostomy) Effort: mildly labored Ascultation: Bilateral: diminished breath sounds, rhonchi Percussion: Bilateral: not dull Cardiovascular: regular rate and rhythm Gastrointestinal: normoactive bowel sounds, soft, non-tender, non-distended Integumentary: normal Extremities: no cyanosis, pulses normal, no ischemia or petechiae, edema (trace ) Neurologic: unable to assess, other (slight pupillary constriction to light) Psychiatric: other (unable to assess) CBC and BMP: 09/13/18 07:06 09/13/18 07:06 ABG, PT/INR, D-dimer: ABG POC ABG pH 7.447 (7.35-7.45) 09/12/18 19:33 POC ABG pCO2 44.5 (35-45) 09/12/18 19:33 POC ABG pO2 88 (80-105) 09/12/18 19:33 POC ABG HCO3 30.7 (22-26 mml/L) 09/12/18 19:33 POC ABG Total CO2 32 (23-27mmol/L) 09/12/18 19:33 POC ABG O2 Sat 97 09/12/18 19:33 PT/INR, D-dimer PT 16.5 Sec. (12.2-14.9) H 08/13/18 00:47 INR 1.25 (0.87-1.13) H 08/13/18 00:47 2742.50 ng/mlDDU (0-234) H 08/13/18 20:07 Abnormal lab findings: Abnormal Labs 08/12/18 08/12/18 08/12/18 21:44 21:44 21:44 WBC 15.5 H RBC 3.12 L Hgb 8.8 L Hct 28.9 L MCV MCH MCHC 31 L RDW 19.5 H Lymph % (Auto) [place] % (Auto) Eos % (Auto) Lymph # [place] # Eos # Seg Neutrophils % Seg Neuts % (Manual) Lymphocytes % (Manual) 48.0 H Seg Neutrophils # Seg Neutrophils # Man Lymphocytes # (Manual) 7.4 H Eosinophils # (Manual) PT 17.8 H INR 1.37 H APTT D-Dimer Heparin Anti-Xa Level POC ABG pH POC ABG pCO2 POC ABG pO2 Sodium 159 H Potassium Chloride 118.5 H Carbon Dioxide BUN 34 H Creatinine Glucose 161 H POC Glucose Lactic Acid Calcium Magnesium AST Alkaline Phosphatase Total Creatine Kinase CK-MB (CK-2) Troponin T 0.105 H* C-Reactive Protein Total Protein Albumin Cholesterol LDL Cholesterol Direct HDL Cholesterol Free T4 Urine WBC (Auto) Urine Creatinine Urine Total Protein Crossmatch 08/13/18 08/13/18 08/13/18 00:32 00:47 00:47 WBC RBC Hgb 9.2 L Hct 29.6 L MCV MCH MCHC RDW Lymph % (Auto) [place] % (Auto) Eos % (Auto) Lymph # [place] # Eos # Seg Neutrophils % Seg Neuts % (Manual) Lymphocytes % (Manual) Seg Neutrophils # Seg Neutrophils # Man Lymphocytes # (Manual) Eosinophils # (Manual) PT 16.5 H INR 1.25 H APTT 37.3 H D-Dimer Heparin Anti-Xa Level POC ABG pH POC ABG pCO2 POC ABG pO2 Sodium Potassium Chloride Carbon Dioxide BUN Creatinine Glucose POC Glucose Lactic Acid Calcium Magnesium AST Alkaline Phosphatase Total Creatine Kinase 211 H CK-MB (CK-2) 7.7 H Troponin T 0.169 H* D C-Reactive Protein Total Protein Albumin Cholesterol 46 L LDL Cholesterol Direct 17 L HDL Cholesterol 6 L Free T4 Urine WBC (Auto) Urine Creatinine Urine Total Protein Crossmatch 08/13/18 08/13/18 08/13/18 00:50 02:25 05:34 WBC RBC Hgb Hct MCV MCH MCHC RDW Lymph % (Auto) [place] % (Auto) Eos % (Auto) Lymph # [place] # Eos # Seg Neutrophils % Seg Neuts % (Manual) Lymphocytes % (Manual) Seg Neutrophils # Seg Neutrophils # Man Lymphocytes # (Manual) Eosinophils # (Manual) PT INR APTT D-Dimer Heparin Anti-Xa Level POC ABG pH 7.503 H POC ABG pCO2 POC ABG pO2 253 H Sodium Potassium Chloride Carbon Dioxide BUN Creatinine Glucose POC Glucose Lactic Acid Calcium Magnesium AST Alkaline Phosphatase Total Creatine Kinase 311 H CK-MB (CK-2) 10.4 H Troponin T 0.283 H* D C-Reactive Protein Total Protein Albumin Cholesterol LDL Cholesterol Direct HDL Cholesterol Free T4 Urine WBC (Auto) > 182.0 H Urine Creatinine Urine Total Protein Crossmatch 08/13/18 08/13/18 08/13/18 06:35 10:10 10:10 WBC RBC Hgb Hct MCV MCH MCHC RDW Lymph % (Auto) [place] % (Auto) Eos % (Auto) Lymph # [place] # Eos # Seg Neutrophils % Seg Neuts % (Manual) Lymphocytes % (Manual) Seg Neutrophils # Seg Neutrophils # Man Lymphocytes # (Manual) Eosinophils # (Manual) PT INR APTT D-Dimer Heparin Anti-Xa Level POC ABG pH 7.554 H POC ABG pCO2 33.5 L POC ABG pO2 220 H Sodium 158 H Potassium Chloride 117.1 H Carbon Dioxide BUN 53 H Creatinine 2.0 H Glucose 247 H POC Glucose Lactic Acid Calcium 8.2 L Magnesium AST Alkaline Phosphatase Total Creatine Kinase 309 H CK-MB (CK-2) 4.1 H Troponin T 0.470 H* D C-Reactive Protein Total Protein Albumin Cholesterol LDL Cholesterol Direct HDL Cholesterol Free T4 Urine WBC (Auto) Urine Creatinine Urine Total Protein Crossmatch 08/13/18 08/13/18 08/13/18 12:53 12:53 17:55 WBC RBC Hgb Hct MCV MCH MCHC RDW Lymph % (Auto) [place] % (Auto) Eos % (Auto) Lymph # [place] # Eos # Seg Neutrophils % Seg Neuts % (Manual) Lymphocytes % (Manual) Seg Neutrophils # Seg Neutrophils # Man Lymphocytes # (Manual) Eosinophils # (Manual) PT INR APTT D-Dimer Heparin Anti-Xa Level POC ABG pH POC ABG pCO2 POC ABG pO2 Sodium Potassium Chloride Carbon Dioxide BUN Creatinine Glucose POC Glucose 308 H Lactic Acid 2.80 H* Calcium Magnesium 2.50 H AST Alkaline Phosphatase Total Creatine Kinase CK-MB (CK-2) Troponin T C-Reactive Protein 16.90 H Total Protein Albumin Cholesterol LDL Cholesterol Direct HDL Cholesterol Free T4 Urine WBC (Auto) Urine Creatinine Urine Total Protein Crossmatch 08/13/18 08/13/18 08/13/18 20:07 21:16 23:17 WBC RBC Hgb Hct MCV MCH MCHC RDW Lymph % (Auto) [place] % (Auto) Eos % (Auto) Lymph # [place] # Eos # Seg Neutrophils % Seg Neuts % (Manual) Lymphocytes % (Manual) Seg Neutrophils # Seg Neutrophils # Man Lymphocytes # (Manual) Eosinophils # (Manual) PT INR APTT D-Dimer 2742.50 H Heparin Anti-Xa Level POC ABG pH 7.483 H POC ABG pCO2 30.8 L POC ABG pO2 150 H Sodium Potassium Chloride Carbon Dioxide BUN Creatinine Glucose POC Glucose 245 H Lactic Acid Calcium Magnesium AST Alkaline Phosphatase Total Creatine Kinase CK-MB (CK-2) Troponin T C-Reactive Protein Total Protein Albumin Cholesterol LDL Cholesterol Direct HDL Cholesterol Free T4 Urine WBC (Auto) Urine Creatinine Urine Total Protein Crossmatch 08/14/18 08/14/18 08/14/18 04:03 04:03 04:56 WBC 18.2 H RBC 2.62 L Hgb 7.3 L Hct 24.5 L MCV MCH MCHC RDW 18.9 H Lymph % (Auto) [place] % (Auto) Eos % (Auto) Lymph # [place] # 1.2 H Eos # Seg Neutrophils % 79.4 H Seg Neuts % (Manual) Lymphocytes % (Manual) Seg Neutrophils # 14.5 H Seg Neutrophils # Man Lymphocytes # (Manual) Eosinophils # (Manual) PT INR APTT D-Dimer Heparin Anti-Xa Level POC ABG pH POC ABG pCO2 33.5 L POC ABG pO2 153 H Sodium 152 H Potassium 3.4 L Chloride 113.8 H Carbon Dioxide BUN 72 H Creatinine 2.7 H Glucose 239 H POC Glucose Lactic Acid Calcium 7.6 L Magnesium AST 50 H Alkaline Phosphatase 219 H Total Creatine Kinase CK-MB (CK-2) Troponin T 0.409 H* C-Reactive Protein Total Protein 6.2 L Albumin 1.9 L Cholesterol LDL Cholesterol Direct HDL Cholesterol Free T4 Urine WBC (Auto) Urine Creatinine Urine Total Protein Crossmatch 08/14/18 08/14/18 08/14/18 05:18 13:38 15:35 WBC RBC Hgb Hct MCV MCH MCHC RDW Lymph % (Auto) [place] % (Auto) Eos % (Auto) Lymph # [place] # Eos # Seg Neutrophils % Seg Neuts % (Manual) Lymphocytes % (Manual) Seg Neutrophils # Seg Neutrophils # Man Lymphocytes # (Manual) Eosinophils # (Manual) PT INR APTT D-Dimer Heparin Anti-Xa Level POC ABG pH POC ABG pCO2 POC ABG pO2 Sodium 150 H Potassium 3.2 L Chloride 114.5 H Carbon Dioxide BUN 69 H Creatinine 2.3 H Glucose 247 H POC Glucose 242 H 296 H Lactic Acid Calcium 7.2 L Magnesium AST Alkaline Phosphatase Total Creatine Kinase CK-MB (CK-2) Troponin T C-Reactive Protein Total Protein Albumin Cholesterol LDL Cholesterol Direct HDL Cholesterol Free T4 Urine WBC (Auto) Urine Creatinine Urine Total Protein Crossmatch 08/14/18 08/14/18 08/14/18 17:01 17:20 23:47 WBC RBC Hgb Hct MCV MCH MCHC RDW Lymph % (Auto) [place] % (Auto) Eos % (Auto) Lymph # [place] # Eos # Seg Neutrophils % Seg Neuts % (Manual) Lymphocytes % (Manual) Seg Neutrophils # Seg Neutrophils # Man Lymphocytes # (Manual) Eosinophils # (Manual) PT INR APTT D-Dimer Heparin Anti-Xa Level POC ABG pH POC ABG pCO2 POC ABG pO2 Sodium Potassium Chloride Carbon Dioxide BUN Creatinine Glucose POC Glucose 261 H 280 H Lactic Acid Calcium Magnesium AST Alkaline Phosphatase Total Creatine Kinase CK-MB (CK-2) Troponin T C-Reactive Protein Total Protein Albumin Cholesterol LDL Cholesterol Direct HDL Cholesterol Free T4 Urine WBC (Auto) Urine Creatinine 60.9 H Urine Total Protein 64 H Crossmatch 08/15/18 08/15/18 08/15/18 04:05 04:05 04:05 WBC RBC Hgb 6.3 L Hct 19.7 L* MCV MCH MCHC RDW Lymph % (Auto) [place] % (Auto) Eos % (Auto) Lymph # [place] # Eos # Seg Neutrophils % Seg Neuts % (Manual) Lymphocytes % (Manual) Seg Neutrophils # Seg Neutrophils # Man Lymphocytes # (Manual) Eosinophils # (Manual) PT INR APTT D-Dimer Heparin Anti-Xa Level 0.17 L POC ABG pH POC ABG pCO2 POC ABG pO2 Sodium 146 H Potassium 3.0 L Chloride 110.6 H Carbon Dioxide BUN 64 H Creatinine 2.2 H Glucose 231 H POC Glucose Lactic Acid Calcium 7.1 L Magnesium AST Alkaline Phosphatase Total Creatine Kinase CK-MB (CK-2) Troponin T C-Reactive Protein Total Protein Albumin Cholesterol LDL Cholesterol Direct HDL Cholesterol Free T4 Urine WBC (Auto) Urine Creatinine Urine Total Protein Crossmatch 08/15/18 08/15/18 08/15/18 05:21 05:26 06:35 WBC RBC Hgb Hct MCV MCH MCHC RDW Lymph % (Auto) [place] % (Auto) Eos % (Auto) Lymph # [place] # Eos # Seg Neutrophils % Seg Neuts % (Manual) Lymphocytes % (Manual) Seg Neutrophils # Seg Neutrophils # Man Lymphocytes # (Manual) Eosinophils # (Manual) PT INR APTT 79.0 H* D-Dimer Heparin Anti-Xa Level POC ABG pH 7.494 H POC ABG pCO2 POC ABG pO2 155 H Sodium Potassium Chloride Carbon Dioxide BUN Creatinine Glucose POC Glucose 271 H Lactic Acid Calcium Magnesium AST Alkaline Phosphatase Total Creatine Kinase CK-MB (CK-2) Troponin T C-Reactive Protein Total Protein Albumin Cholesterol LDL Cholesterol Direct HDL Cholesterol Free T4 Urine WBC (Auto) Urine Creatinine Urine Total Protein Crossmatch 08/15/18 08/15/18 08/15/18 12:10 15:31 17:27 WBC RBC Hgb Hct MCV MCH MCHC RDW Lymph % (Auto) [place] % (Auto) Eos % (Auto) Lymph # [place] # Eos # Seg Neutrophils % Seg Neuts % (Manual) Lymphocytes % (Manual) Seg Neutrophils # Seg Neutrophils # Man Lymphocytes # (Manual) Eosinophils # (Manual) PT INR APTT D-Dimer Heparin Anti-Xa Level POC ABG pH POC ABG pCO2 POC ABG pO2 Sodium Potassium Chloride Carbon Dioxide BUN Creatinine Glucose POC Glucose 301 H 287 H Lactic Acid Calcium Magnesium AST Alkaline Phosphatase Total Creatine Kinase CK-MB (CK-2) Troponin T C-Reactive Protein Total Protein Albumin Cholesterol LDL Cholesterol Direct HDL Cholesterol Free T4 Urine WBC (Auto) Urine Creatinine Urine Total Protein Crossmatch See Detail 08/15/18 08/15/18 08/16/18 21:41 23:45 04:13 WBC RBC Hgb Hct MCV MCH MCHC RDW Lymph % (Auto) [place] % (Auto) Eos % (Auto) Lymph # [place] # Eos # Seg Neutrophils % Seg Neuts % (Manual) Lymphocytes % (Manual) Seg Neutrophils # Seg Neutrophils # Man Lymphocytes # (Manual) Eosinophils # (Manual) PT INR APTT D-Dimer Heparin Anti-Xa Level 0.19 L POC ABG pH POC ABG pCO2 32.1 L POC ABG pO2 107 H Sodium Potassium Chloride Carbon Dioxide BUN Creatinine Glucose POC Glucose 163 H Lactic Acid Calcium Magnesium AST Alkaline Phosphatase Total Creatine Kinase CK-MB (CK-2) Troponin T C-Reactive Protein Total Protein Albumin Cholesterol LDL Cholesterol Direct HDL Cholesterol Free T4 Urine WBC (Auto) Urine Creatinine Urine Total Protein Crossmatch 08/16/18 08/16/18 08/16/18 04:50 05:28 11:30 WBC RBC 2.67 L Hgb 8.1 L Hct 23.4 L MCV MCH MCHC 35 H RDW 18.3 H Lymph % (Auto) [place] % (Auto) Eos % (Auto) Lymph # [place] # Eos # Seg Neutrophils % Seg Neuts % (Manual) Lymphocytes % (Manual) Seg Neutrophils # Seg Neutrophils # Man Lymphocytes # (Manual) Eosinophils # (Manual) PT INR APTT D-Dimer Heparin Anti-Xa Level 0.19 L POC ABG pH POC ABG pCO2 POC ABG pO2 Sodium Potassium Chloride Carbon Dioxide BUN Creatinine Glucose POC Glucose 141 H Lactic Acid Calcium Magnesium AST Alkaline Phosphatase Total Creatine Kinase CK-MB (CK-2) Troponin T C-Reactive Protein Total Protein Albumin Cholesterol LDL Cholesterol Direct HDL Cholesterol Free T4 Urine WBC (Auto) Urine Creatinine Urine Total Protein Crossmatch 08/16/18 08/16/18 08/16/18 11:30 12:00 12:01 WBC RBC Hgb Hct MCV MCH MCHC RDW Lymph % (Auto) [place] % (Auto) Eos % (Auto) Lymph # [place] # Eos # Seg Neutrophils % Seg Neuts % (Manual) Lymphocytes % (Manual) Seg Neutrophils # Seg Neutrophils # Man Lymphocytes # (Manual) Eosinophils # (Manual) PT INR APTT D-Dimer Heparin Anti-Xa Level 0.15 L POC ABG pH POC ABG pCO2 POC ABG pO2 Sodium Potassium Chloride 107.8 H Carbon Dioxide 21 L BUN 47 H Creatinine 1.6 H Glucose 221 H POC Glucose 267 H Lactic Acid Calcium 6.9 L Magnesium AST Alkaline Phosphatase Total Creatine Kinase CK-MB (CK-2) Troponin T C-Reactive Protein Total Protein Albumin Cholesterol LDL Cholesterol Direct HDL Cholesterol Free T4 Urine WBC (Auto) Urine Creatinine Urine Total Protein Crossmatch 08/16/18 08/16/18 08/16/18 17:23 20:01 23:13 WBC RBC Hgb Hct MCV MCH MCHC RDW Lymph % (Auto) [place] % (Auto) Eos % (Auto) Lymph # [place] # Eos # Seg Neutrophils % Seg Neuts % (Manual) Lymphocytes % (Manual) Seg Neutrophils # Seg Neutrophils # Man Lymphocytes # (Manual) Eosinophils # (Manual) PT INR APTT D-Dimer Heparin Anti-Xa Level 0.26 L POC ABG pH POC ABG pCO2 POC ABG pO2 Sodium Potassium Chloride Carbon Dioxide BUN Creatinine Glucose POC Glucose 245 H 256 H Lactic Acid Calcium Magnesium AST Alkaline Phosphatase Total Creatine Kinase CK-MB (CK-2) Troponin T C-Reactive Protein Total Protein Albumin Cholesterol LDL Cholesterol Direct HDL Cholesterol Free T4 Urine WBC (Auto) Urine Creatinine Urine Total Protein Crossmatch 08/17/18 08/17/18 08/17/18 04:29 04:55 05:34 WBC RBC Hgb 8.2 L Hct 24.3 L MCV MCH MCHC RDW Lymph % (Auto) [place] % (Auto) Eos % (Auto) Lymph # [place] # Eos # Seg Neutrophils % Seg Neuts % (Manual) Lymphocytes % (Manual) Seg Neutrophils # Seg Neutrophils # Man Lymphocytes # (Manual) Eosinophils # (Manual) PT INR APTT D-Dimer Heparin Anti-Xa Level POC ABG pH POC ABG pCO2 32.4 L POC ABG pO2 108 H Sodium Potassium Chloride Carbon Dioxide BUN Creatinine Glucose POC Glucose 268 H Lactic Acid Calcium Magnesium AST Alkaline Phosphatase Total Creatine Kinase CK-MB (CK-2) Troponin T C-Reactive Protein Total Protein Albumin Cholesterol LDL Cholesterol Direct HDL Cholesterol Free T4 Urine WBC (Auto) Urine Creatinine Urine Total Protein Crossmatch 08/17/18 08/17/18 08/17/18 11:54 13:44 17:24 WBC RBC Hgb Hct MCV MCH MCHC RDW Lymph % (Auto) [place] % (Auto) Eos % (Auto) Lymph # [place] # Eos # Seg Neutrophils % Seg Neuts % (Manual) Lymphocytes % (Manual) Seg Neutrophils # Seg Neutrophils # Man Lymphocytes # (Manual) Eosinophils # (Manual) PT INR APTT D-Dimer Heparin Anti-Xa Level POC ABG pH POC ABG pCO2 32.7 L POC ABG pO2 142 H Sodium Potassium Chloride Carbon Dioxide BUN Creatinine Glucose POC Glucose 295 H 283 H Lactic Acid Calcium Magnesium AST Alkaline Phosphatase Total Creatine Kinase CK-MB (CK-2) Troponin T C-Reactive Protein Total Protein Albumin Cholesterol LDL Cholesterol Direct HDL Cholesterol Free T4 Urine WBC (Auto) Urine Creatinine Urine Total Protein Crossmatch 08/18/18 08/18/18 08/18/18 00:05 00:59 04:15 WBC RBC Hgb Hct MCV MCH MCHC RDW Lymph % (Auto) [place] % (Auto) Eos % (Auto) Lymph # [place] # Eos # Seg Neutrophils % Seg Neuts % (Manual) Lymphocytes % (Manual) Seg Neutrophils # Seg Neutrophils # Man Lymphocytes # (Manual) Eosinophils # (Manual) PT INR APTT D-Dimer Heparin Anti-Xa Level POC ABG pH POC ABG pCO2 POC ABG pO2 115 H Sodium Potassium Chloride Carbon Dioxide BUN Creatinine Glucose POC Glucose 247 H 251 H Lactic Acid Calcium Magnesium AST Alkaline Phosphatase Total Creatine Kinase CK-MB (CK-2) Troponin T C-Reactive Protein Total Protein Albumin Cholesterol LDL Cholesterol Direct HDL Cholesterol Free T4 Urine WBC (Auto) Urine Creatinine Urine Total Protein Crossmatch 08/18/18 08/18/18 08/18/18 05:02 12:20 17:51 WBC RBC Hgb Hct MCV MCH MCHC RDW Lymph % (Auto) [place] % (Auto) Eos % (Auto) Lymph # [place] # Eos # Seg Neutrophils % Seg Neuts % (Manual) Lymphocytes % (Manual) Seg Neutrophils # Seg Neutrophils # Man Lymphocytes # (Manual) Eosinophils # (Manual) PT INR APTT D-Dimer Heparin Anti-Xa Level POC ABG pH POC ABG pCO2 POC ABG pO2 Sodium Potassium Chloride Carbon Dioxide BUN Creatinine Glucose POC Glucose 282 H 209 H 261 H Lactic Acid Calcium Magnesium AST Alkaline Phosphatase Total Creatine Kinase CK-MB (CK-2) Troponin T C-Reactive Protein Total Protein Albumin Cholesterol LDL Cholesterol Direct HDL Cholesterol Free T4 Urine WBC (Auto) Urine Creatinine Urine Total Protein Crossmatch 08/18/18 08/19/18 08/19/18 23:30 04:54 05:16 WBC RBC 2.62 L Hgb 7.5 L Hct 23.1 L MCV MCH MCHC RDW 18.1 H Lymph % (Auto) [place] % (Auto) Eos % (Auto) Lymph # [place] # Eos # Seg Neutrophils % Seg Neuts % (Manual) Lymphocytes % (Manual) Seg Neutrophils # Seg Neutrophils # Man Lymphocytes # (Manual) Eosinophils # (Manual) PT INR APTT D-Dimer Heparin Anti-Xa Level POC ABG pH POC ABG pCO2 POC ABG pO2 58 L Sodium Potassium Chloride Carbon Dioxide BUN Creatinine Glucose POC Glucose 231 H Lactic Acid Calcium Magnesium AST Alkaline Phosphatase Total Creatine Kinase CK-MB (CK-2) Troponin T C-Reactive Protein Total Protein Albumin Cholesterol LDL Cholesterol Direct HDL Cholesterol Free T4 Urine WBC (Auto) Urine Creatinine Urine Total Protein Crossmatch 08/19/18 08/19/18 08/19/18 05:16 05:40 11:56 WBC RBC Hgb Hct MCV MCH MCHC RDW Lymph % (Auto) [place] % (Auto) Eos % (Auto) Lymph # [place] # Eos # Seg Neutrophils % Seg Neuts % (Manual) Lymphocytes % (Manual) Seg Neutrophils # Seg Neutrophils # Man Lymphocytes # (Manual) Eosinophils # (Manual) PT INR APTT D-Dimer Heparin Anti-Xa Level POC ABG pH POC ABG pCO2 POC ABG pO2 Sodium 152 H D Potassium Chloride 118.7 H Carbon Dioxide BUN 38 H Creatinine Glucose 220 H POC Glucose 227 H 213 H Lactic Acid Calcium 8.1 L D Magnesium AST Alkaline Phosphatase Total Creatine Kinase CK-MB (CK-2) Troponin T C-Reactive Protein Total Protein Albumin Cholesterol LDL Cholesterol Direct HDL Cholesterol Free T4 Urine WBC (Auto) Urine Creatinine Urine Total Protein Crossmatch 08/19/18 08/19/18 08/20/18 18:37 23:32 04:38 WBC RBC Hgb Hct MCV MCH MCHC RDW Lymph % (Auto) [place] % (Auto) Eos % (Auto) Lymph # [place] # Eos # Seg Neutrophils % Seg Neuts % (Manual) Lymphocytes % (Manual) Seg Neutrophils # Seg Neutrophils # Man Lymphocytes # (Manual) Eosinophils # (Manual) PT INR APTT D-Dimer Heparin Anti-Xa Level POC ABG pH POC ABG pCO2 POC ABG pO2 140 H Sodium Potassium Chloride Carbon Dioxide BUN Creatinine Glucose POC Glucose 227 H 245 H Lactic Acid Calcium Magnesium AST Alkaline Phosphatase Total Creatine Kinase CK-MB (CK-2) Troponin T C-Reactive Protein Total Protein Albumin Cholesterol LDL Cholesterol Direct HDL Cholesterol Free T4 Urine WBC (Auto) Urine Creatinine Urine Total Protein Crossmatch 08/20/18 08/20/18 08/20/18 05:31 05:37 05:37 WBC RBC 2.60 L Hgb 7.5 L Hct 22.9 L MCV MCH MCHC RDW 18.4 H Lymph % (Auto) [place] % (Auto) Eos % (Auto) Lymph # [place] # Eos # Seg Neutrophils % Seg Neuts % (Manual) Lymphocytes % (Manual) Seg Neutrophils # Seg Neutrophils # Man Lymphocytes # (Manual) Eosinophils # (Manual) PT INR APTT D-Dimer Heparin Anti-Xa Level POC ABG pH POC ABG pCO2 POC ABG pO2 Sodium 150 H Potassium Chloride 115.6 H Carbon Dioxide BUN 38 H Creatinine Glucose 276 H POC Glucose 266 H Lactic Acid Calcium 7.9 L Magnesium AST Alkaline Phosphatase Total Creatine Kinase CK-MB (CK-2) Troponin T C-Reactive Protein Total Protein Albumin Cholesterol LDL Cholesterol Direct HDL Cholesterol Free T4 Urine WBC (Auto) Urine Creatinine Urine Total Protein Crossmatch 08/20/18 08/20/18 08/20/18 14:01 18:20 23:11 WBC RBC Hgb Hct MCV MCH MCHC RDW Lymph % (Auto) [place] % (Auto) Eos % (Auto) Lymph # [place] # Eos # Seg Neutrophils % Seg Neuts % (Manual) Lymphocytes % (Manual) Seg Neutrophils # Seg Neutrophils # Man Lymphocytes # (Manual) Eosinophils # (Manual) PT INR APTT D-Dimer Heparin Anti-Xa Level POC ABG pH POC ABG pCO2 POC ABG pO2 Sodium Potassium Chloride Carbon Dioxide BUN Creatinine Glucose POC Glucose 305 H 271 H 218 H Lactic Acid Calcium Magnesium AST Alkaline Phosphatase Total Creatine Kinase CK-MB (CK-2) Troponin T C-Reactive Protein Total Protein Albumin Cholesterol LDL Cholesterol Direct HDL Cholesterol Free T4 Urine WBC (Auto) Urine Creatinine Urine Total Protein Crossmatch 08/21/18 08/21/18 08/21/18 04:41 04:41 06:20 WBC RBC 2.65 L Hgb 7.6 L Hct 23.3 L MCV MCH MCHC RDW 19.1 H Lymph % (Auto) [place] % (Auto) Eos % (Auto) Lymph # [place] # Eos # Seg Neutrophils % Seg Neuts % (Manual) Lymphocytes % (Manual) Seg Neutrophils # Seg Neutrophils # Man Lymphocytes # (Manual) Eosinophils # (Manual) PT INR APTT D-Dimer Heparin Anti-Xa Level POC ABG pH POC ABG pCO2 POC ABG pO2 Sodium 150 H Potassium Chloride 117.8 H Carbon Dioxide BUN 37 H Creatinine Glucose 233 H POC Glucose 262 H Lactic Acid Calcium 7.9 L Magnesium AST Alkaline Phosphatase Total Creatine Kinase CK-MB (CK-2) Troponin T C-Reactive Protein Total Protein Albumin Cholesterol LDL Cholesterol Direct HDL Cholesterol Free T4 Urine WBC (Auto) Urine Creatinine Urine Total Protein Crossmatch 08/21/18 08/21/18 08/21/18 10:18 12:04 12:36 WBC RBC Hgb Hct MCV MCH MCHC RDW Lymph % (Auto) [place] % (Auto) Eos % (Auto) Lymph # [place] # Eos # Seg Neutrophils % Seg Neuts % (Manual) Lymphocytes % (Manual) Seg Neutrophils # Seg Neutrophils # Man Lymphocytes # (Manual) Eosinophils # (Manual) PT INR APTT D-Dimer Heparin Anti-Xa Level POC ABG pH POC ABG pCO2 POC ABG pO2 Sodium Potassium Chloride Carbon Dioxide BUN Creatinine Glucose POC Glucose 256 H 245 H 255 H Lactic Acid Calcium Magnesium AST Alkaline Phosphatase Total Creatine Kinase CK-MB (CK-2) Troponin T C-Reactive Protein Total Protein Albumin Cholesterol LDL Cholesterol Direct HDL Cholesterol Free T4 Urine WBC (Auto) Urine Creatinine Urine Total Protein Crossmatch 08/21/18 08/21/18 08/22/18 17:36 23:29 05:01 WBC RBC Hgb Hct MCV MCH MCHC RDW Lymph % (Auto) [place] % (Auto) Eos % (Auto) Lymph # [place] # Eos # Seg Neutrophils % Seg Neuts % (Manual) Lymphocytes % (Manual) Seg Neutrophils # Seg Neutrophils # Man Lymphocytes # (Manual) Eosinophils # (Manual) PT INR APTT D-Dimer Heparin Anti-Xa Level POC ABG pH 7.466 H POC ABG pCO2 33.8 L POC ABG pO2 111 H Sodium Potassium Chloride Carbon Dioxide BUN Creatinine Glucose POC Glucose 263 H 268 H Lactic Acid Calcium Magnesium AST Alkaline Phosphatase Total Creatine Kinase CK-MB (CK-2) Troponin T C-Reactive Protein Total Protein Albumin Cholesterol LDL Cholesterol Direct HDL Cholesterol Free T4 Urine WBC (Auto) Urine Creatinine Urine Total Protein Crossmatch 08/22/18 08/22/18 08/22/18 05:05 12:05 12:15 WBC RBC Hgb Hct MCV MCH MCHC RDW Lymph % (Auto) [place] % (Auto) Eos % (Auto) Lymph # [place] # Eos # Seg Neutrophils % Seg Neuts % (Manual) Lymphocytes % (Manual) Seg Neutrophils # Seg Neutrophils # Man Lymphocytes # (Manual) Eosinophils # (Manual) PT INR APTT D-Dimer Heparin Anti-Xa Level POC ABG pH POC ABG pCO2 POC ABG pO2 Sodium 147 H Potassium Chloride 113.2 H Carbon Dioxide BUN 36 H Creatinine Glucose 249 H POC Glucose 256 H 228 H Lactic Acid Calcium 8.2 L Magnesium AST Alkaline Phosphatase Total Creatine Kinase CK-MB (CK-2) Troponin T C-Reactive Protein Total Protein Albumin Cholesterol LDL Cholesterol Direct HDL Cholesterol Free T4 Urine WBC (Auto) Urine Creatinine Urine Total Protein Crossmatch 08/22/18 08/23/18 08/23/18 17:30 00:03 05:05 WBC RBC Hgb Hct MCV MCH MCHC RDW Lymph % (Auto) [place] % (Auto) Eos % (Auto) Lymph # [place] # Eos # Seg Neutrophils % Seg Neuts % (Manual) Lymphocytes % (Manual) Seg Neutrophils # Seg Neutrophils # Man Lymphocytes # (Manual) Eosinophils # (Manual) PT INR APTT D-Dimer Heparin Anti-Xa Level POC ABG pH POC ABG pCO2 POC ABG pO2 Sodium Potassium Chloride Carbon Dioxide BUN Creatinine Glucose POC Glucose 291 H 259 H 247 H Lactic Acid Calcium Magnesium AST Alkaline Phosphatase Total Creatine Kinase CK-MB (CK-2) Troponin T C-Reactive Protein Total Protein Albumin Cholesterol LDL Cholesterol Direct HDL Cholesterol Free T4 Urine WBC (Auto) Urine Creatinine Urine Total Protein Crossmatch 08/23/18 08/23/18 08/23/18 05:14 12:29 17:21 WBC RBC Hgb Hct MCV MCH MCHC RDW Lymph % (Auto) [place] % (Auto) Eos % (Auto) Lymph # [place] # Eos # Seg Neutrophils % Seg Neuts % (Manual) Lymphocytes % (Manual) Seg Neutrophils # Seg Neutrophils # Man Lymphocytes # (Manual) Eosinophils # (Manual) PT INR APTT D-Dimer Heparin Anti-Xa Level POC ABG pH POC ABG pCO2 POC ABG pO2 Sodium Potassium Chloride Carbon Dioxide BUN Creatinine Glucose POC Glucose 208 H 138 H 175 H Lactic Acid Calcium Magnesium AST Alkaline Phosphatase Total Creatine Kinase CK-MB (CK-2) Troponin T C-Reactive Protein Total Protein Albumin Cholesterol LDL Cholesterol Direct HDL Cholesterol Free T4 Urine WBC (Auto) Urine Creatinine Urine Total Protein Crossmatch 08/23/18 08/24/18 08/24/18 23:36 01:00 05:50 WBC RBC 2.92 L 2.90 L Hgb 8.3 L 8.2 L Hct 25.4 L 25.2 L MCV MCH MCHC RDW 18.9 H 18.6 H Lymph % (Auto) [place] % (Auto) 9.2 H Eos % (Auto) Lymph # [place] # Eos # Seg Neutrophils % Seg Neuts % (Manual) Lymphocytes % (Manual) Seg Neutrophils # Seg Neutrophils # Man Lymphocytes # (Manual) Eosinophils # (Manual) PT INR APTT D-Dimer Heparin Anti-Xa Level POC ABG pH POC ABG pCO2 POC ABG pO2 Sodium Potassium Chloride Carbon Dioxide BUN Creatinine Glucose POC Glucose 163 H Lactic Acid Calcium Magnesium AST Alkaline Phosphatase Total Creatine Kinase CK-MB (CK-2) Troponin T C-Reactive Protein Total Protein Albumin Cholesterol LDL Cholesterol Direct HDL Cholesterol Free T4 Urine WBC (Auto) Urine Creatinine Urine Total Protein Crossmatch 08/24/18 08/24/18 08/24/18 05:50 12:26 18:37 WBC RBC Hgb Hct MCV MCH MCHC RDW Lymph % (Auto) [place] % (Auto) Eos % (Auto) Lymph # [place] # Eos # Seg Neutrophils % Seg Neuts % (Manual) Lymphocytes % (Manual) Seg Neutrophils # Seg Neutrophils # Man Lymphocytes # (Manual) Eosinophils # (Manual) PT INR APTT D-Dimer Heparin Anti-Xa Level POC ABG pH POC ABG pCO2 POC ABG pO2 Sodium 147 H Potassium Chloride 113.6 H Carbon Dioxide BUN 33 H Creatinine Glucose 210 H POC Glucose 223 H 166 H Lactic Acid Calcium 8.3 L Magnesium AST Alkaline Phosphatase Total Creatine Kinase CK-MB (CK-2) Troponin T C-Reactive Protein Total Protein Albumin Cholesterol LDL Cholesterol Direct HDL Cholesterol Free T4 Urine WBC (Auto) Urine Creatinine Urine Total Protein Crossmatch 08/24/18 08/25/18 08/25/18 23:47 04:55 04:55 WBC RBC 2.94 L Hgb 8.4 L Hct 25.1 L MCV MCH MCHC RDW 18.2 H Lymph % (Auto) [place] % (Auto) Eos % (Auto) Lymph # [place] # Eos # Seg Neutrophils % Seg Neuts % (Manual) Lymphocytes % (Manual) Seg Neutrophils # Seg Neutrophils # Man Lymphocytes # (Manual) Eosinophils # (Manual) PT INR APTT D-Dimer Heparin Anti-Xa Level POC ABG pH POC ABG pCO2 POC ABG pO2 Sodium Potassium Chloride 110.2 H Carbon Dioxide BUN 30 H Creatinine Glucose POC Glucose 126 H Lactic Acid Calcium 8.1 L Magnesium AST Alkaline Phosphatase Total Creatine Kinase CK-MB (CK-2) Troponin T C-Reactive Protein Total Protein Albumin Cholesterol LDL Cholesterol Direct HDL Cholesterol Free T4 Urine WBC (Auto) Urine Creatinine Urine Total Protein Crossmatch 08/25/18 08/26/18 08/26/18 12:40 04:39 04:39 WBC RBC 2.96 L Hgb 8.3 L Hct 25.7 L MCV MCH MCHC RDW 18.2 H Lymph % (Auto) 10.5 L [place] % (Auto) 9.3 H Eos % (Auto) Lymph # 0.8 L [place] # Eos # Seg Neutrophils % 77.0 H Seg Neuts % (Manual) Lymphocytes % (Manual) Seg Neutrophils # Seg Neutrophils # Man Lymphocytes # (Manual) Eosinophils # (Manual) PT INR APTT D-Dimer Heparin Anti-Xa Level POC ABG pH POC ABG pCO2 POC ABG pO2 Sodium 147 H Potassium Chloride 113.5 H Carbon Dioxide BUN 27 H Creatinine 0.7 L Glucose 106 H POC Glucose Lactic Acid Calcium 8.0 L Magnesium AST Alkaline Phosphatase Total Creatine Kinase CK-MB (CK-2) Troponin T C-Reactive Protein Total Protein Albumin Cholesterol LDL Cholesterol Direct HDL Cholesterol Free T4 Urine WBC (Auto) > 182.0 H Urine Creatinine Urine Total Protein Crossmatch 08/26/18 08/26/18 08/26/18 05:27 09:00 09:54 WBC RBC Hgb Hct MCV MCH MCHC RDW Lymph % (Auto) [place] % (Auto) Eos % (Auto) Lymph # [place] # Eos # Seg Neutrophils % Seg Neuts % (Manual) Lymphocytes % (Manual) Seg Neutrophils # Seg Neutrophils # Man Lymphocytes # (Manual) Eosinophils # (Manual) PT INR APTT D-Dimer Heparin Anti-Xa Level POC ABG pH POC ABG pCO2 POC ABG pO2 Sodium Potassium Chloride Carbon Dioxide BUN Creatinine Glucose POC Glucose 120 H 170 H Lactic Acid Calcium Magnesium AST Alkaline Phosphatase Total Creatine Kinase CK-MB (CK-2) Troponin T C-Reactive Protein Total Protein Albumin Cholesterol LDL Cholesterol Direct HDL Cholesterol Free T4 0.51 L Urine WBC (Auto) Urine Creatinine Urine Total Protein Crossmatch 08/26/18 08/26/18 08/27/18 14:52 17:50 06:30 WBC RBC Hgb Hct MCV MCH MCHC RDW Lymph % (Auto) [place] % (Auto) Eos % (Auto) Lymph # [place] # Eos # Seg Neutrophils % Seg Neuts % (Manual) Lymphocytes % (Manual) Seg Neutrophils # Seg Neutrophils # Man Lymphocytes # (Manual) Eosinophils # (Manual) PT INR APTT D-Dimer Heparin Anti-Xa Level POC ABG pH POC ABG pCO2 POC ABG pO2 Sodium 150 H Potassium Chloride 114.8 H Carbon Dioxide BUN 24 H Creatinine 0.7 L Glucose 131 H POC Glucose 166 H 107 H Lactic Acid Calcium 7.8 L Magnesium AST Alkaline Phosphatase Total Creatine Kinase CK-MB (CK-2) Troponin T C-Reactive Protein Total Protein Albumin Cholesterol LDL Cholesterol Direct HDL Cholesterol Free T4 Urine WBC (Auto) Urine Creatinine Urine Total Protein Crossmatch 08/27/18 08/27/18 08/27/18 08:22 14:20 16:06 WBC RBC Hgb Hct MCV MCH MCHC RDW Lymph % (Auto) [place] % (Auto) Eos % (Auto) Lymph # [place] # Eos # Seg Neutrophils % Seg Neuts % (Manual) Lymphocytes % (Manual) Seg Neutrophils # Seg Neutrophils # Man Lymphocytes # (Manual) Eosinophils # (Manual) PT INR APTT D-Dimer Heparin Anti-Xa Level POC ABG pH POC ABG pCO2 POC ABG pO2 Sodium Potassium Chloride Carbon Dioxide BUN Creatinine Glucose POC Glucose 112 H 151 H 158 H Lactic Acid Calcium Magnesium AST Alkaline Phosphatase Total Creatine Kinase CK-MB (CK-2) Troponin T C-Reactive Protein Total Protein Albumin Cholesterol LDL Cholesterol Direct HDL Cholesterol Free T4 Urine WBC (Auto) Urine Creatinine Urine Total Protein Crossmatch 08/27/18 08/27/18 08/28/18 20:09 21:25 02:03 WBC RBC Hgb Hct MCV MCH MCHC RDW Lymph % (Auto) [place] % (Auto) Eos % (Auto) Lymph # [place] # Eos # Seg Neutrophils % Seg Neuts % (Manual) Lymphocytes % (Manual) Seg Neutrophils # Seg Neutrophils # Man Lymphocytes # (Manual) Eosinophils # (Manual) PT INR APTT D-Dimer Heparin Anti-Xa Level POC ABG pH POC ABG pCO2 POC ABG pO2 130 H Sodium Potassium Chloride Carbon Dioxide BUN Creatinine Glucose POC Glucose 226 H 250 H Lactic Acid Calcium Magnesium AST Alkaline Phosphatase Total Creatine Kinase CK-MB (CK-2) Troponin T C-Reactive Protein Total Protein Albumin Cholesterol LDL Cholesterol Direct HDL Cholesterol Free T4 Urine WBC (Auto) Urine Creatinine Urine Total Protein Crossmatch 08/28/18 08/28/18 08/28/18 05:56 07:15 13:17 WBC RBC Hgb Hct MCV MCH MCHC RDW Lymph % (Auto) [place] % (Auto) Eos % (Auto) Lymph # [place] # Eos # Seg Neutrophils % Seg Neuts % (Manual) Lymphocytes % (Manual) Seg Neutrophils # Seg Neutrophils # Man Lymphocytes # (Manual) Eosinophils # (Manual) PT INR APTT D-Dimer Heparin Anti-Xa Level POC ABG pH POC ABG pCO2 POC ABG pO2 Sodium Potassium Chloride Carbon Dioxide BUN Creatinine Glucose 198 H POC Glucose 221 H 188 H Lactic Acid Calcium 7.7 L Magnesium AST Alkaline Phosphatase Total Creatine Kinase CK-MB (CK-2) Troponin T C-Reactive Protein Total Protein Albumin Cholesterol LDL Cholesterol Direct HDL Cholesterol Free T4 Urine WBC (Auto) Urine Creatinine Urine Total Protein Crossmatch 08/28/18 08/28/18 08/28/18 15:53 18:12 22:35 WBC RBC Hgb Hct MCV MCH MCHC RDW Lymph % (Auto) [place] % (Auto) Eos % (Auto) Lymph # [place] # Eos # Seg Neutrophils % Seg Neuts % (Manual) Lymphocytes % (Manual) Seg Neutrophils # Seg Neutrophils # Man Lymphocytes # (Manual) Eosinophils # (Manual) PT INR APTT D-Dimer Heparin Anti-Xa Level POC ABG pH 7.457 H POC ABG pCO2 POC ABG pO2 Sodium Potassium Chloride Carbon Dioxide BUN Creatinine Glucose POC Glucose 197 H 225 H Lactic Acid Calcium Magnesium AST Alkaline Phosphatase Total Creatine Kinase CK-MB (CK-2) Troponin T C-Reactive Protein Total Protein Albumin Cholesterol LDL Cholesterol Direct HDL Cholesterol Free T4 Urine WBC (Auto) Urine Creatinine Urine Total Protein Crossmatch 08/29/18 08/29/18 08/29/18 03:04 10:47 14:25 WBC RBC Hgb Hct MCV MCH MCHC RDW Lymph % (Auto) [place] % (Auto) Eos % (Auto) Lymph # [place] # Eos # Seg Neutrophils % Seg Neuts % (Manual) Lymphocytes % (Manual) Seg Neutrophils # Seg Neutrophils # Man Lymphocytes # (Manual) Eosinophils # (Manual) PT INR APTT D-Dimer Heparin Anti-Xa Level POC ABG pH POC ABG pCO2 POC ABG pO2 Sodium Potassium Chloride Carbon Dioxide BUN Creatinine Glucose POC Glucose 223 H 371 H 266 H Lactic Acid Calcium Magnesium AST Alkaline Phosphatase Total Creatine Kinase CK-MB (CK-2) Troponin T C-Reactive Protein Total Protein Albumin Cholesterol LDL Cholesterol Direct HDL Cholesterol Free T4 Urine WBC (Auto) Urine Creatinine Urine Total Protein Crossmatch 08/29/18 08/29/18 08/29/18 16:45 17:36 21:33 WBC RBC Hgb Hct MCV MCH MCHC RDW Lymph % (Auto) [place] % (Auto) Eos % (Auto) Lymph # [place] # Eos # Seg Neutrophils % Seg Neuts % (Manual) Lymphocytes % (Manual) Seg Neutrophils # Seg Neutrophils # Man Lymphocytes # (Manual) Eosinophils # (Manual) PT INR APTT D-Dimer Heparin Anti-Xa Level POC ABG pH POC ABG pCO2 POC ABG pO2 118 H Sodium Potassium Chloride Carbon Dioxide BUN Creatinine Glucose POC Glucose 253 H 204 H Lactic Acid Calcium Magnesium AST Alkaline Phosphatase Total Creatine Kinase CK-MB (CK-2) Troponin T C-Reactive Protein Total Protein Albumin Cholesterol LDL Cholesterol Direct HDL Cholesterol Free T4 Urine WBC (Auto) Urine Creatinine Urine Total Protein Crossmatch 08/30/18 08/30/18 08/30/18 01:33 05:27 05:40 WBC RBC 3.12 L Hgb 8.5 L Hct 25.9 L MCV 83 L MCH 27 L MCHC RDW 18.3 H Lymph % (Auto) [place] % (Auto) 7.8 H Eos % (Auto) 8.8 H Lymph # [place] # Eos # 0.6 H Seg Neutrophils % Seg Neuts % (Manual) Lymphocytes % (Manual) Seg Neutrophils # Seg Neutrophils # Man Lymphocytes # (Manual) Eosinophils # (Manual) PT INR APTT D-Dimer Heparin Anti-Xa Level POC ABG pH POC ABG pCO2 POC ABG pO2 Sodium Potassium Chloride Carbon Dioxide BUN Creatinine Glucose POC Glucose 157 H 178 H Lactic Acid Calcium Magnesium AST Alkaline Phosphatase Total Creatine Kinase CK-MB (CK-2) Troponin T C-Reactive Protein Total Protein Albumin Cholesterol LDL Cholesterol Direct HDL Cholesterol Free T4 Urine WBC (Auto) Urine Creatinine Urine Total Protein Crossmatch 08/30/18 08/30/18 08/30/18 05:40 09:28 11:41 WBC RBC Hgb Hct MCV MCH MCHC RDW Lymph % (Auto) [place] % (Auto) Eos % (Auto) Lymph # [place] # Eos # Seg Neutrophils % Seg Neuts % (Manual) Lymphocytes % (Manual) Seg Neutrophils # Seg Neutrophils # Man Lymphocytes # (Manual) Eosinophils # (Manual) PT INR APTT D-Dimer Heparin Anti-Xa Level POC ABG pH POC ABG pCO2 POC ABG pO2 Sodium Potassium Chloride Carbon Dioxide BUN Creatinine 0.7 L Glucose 189 H POC Glucose 216 H 257 H Lactic Acid Calcium 8.2 L Magnesium AST 50 H Alkaline Phosphatase 158 H Total Creatine Kinase CK-MB (CK-2) Troponin T C-Reactive Protein Total Protein Albumin 1.6 L Cholesterol LDL Cholesterol Direct HDL Cholesterol Free T4 Urine WBC (Auto) Urine Creatinine Urine Total Protein Crossmatch 08/30/18 08/30/18 08/30/18 14:34 17:07 21:56 WBC RBC Hgb Hct MCV MCH MCHC RDW Lymph % (Auto) [place] % (Auto) Eos % (Auto) Lymph # [place] # Eos # Seg Neutrophils % Seg Neuts % (Manual) Lymphocytes % (Manual) Seg Neutrophils # Seg Neutrophils # Man Lymphocytes # (Manual) Eosinophils # (Manual) PT INR APTT D-Dimer Heparin Anti-Xa Level POC ABG pH POC ABG pCO2 POC ABG pO2 Sodium Potassium Chloride Carbon Dioxide BUN Creatinine Glucose POC Glucose 263 H 263 H 234 H Lactic Acid Calcium Magnesium AST Alkaline Phosphatase Total Creatine Kinase CK-MB (CK-2) Troponin T C-Reactive Protein Total Protein Albumin Cholesterol LDL Cholesterol Direct HDL Cholesterol Free T4 Urine WBC (Auto) Urine Creatinine Urine Total Protein Crossmatch 08/31/18 08/31/18 08/31/18 02:02 05:29 09:24 WBC RBC Hgb Hct MCV MCH MCHC RDW Lymph % (Auto) [place] % (Auto) Eos % (Auto) Lymph # [place] # Eos # Seg Neutrophils % Seg Neuts % (Manual) Lymphocytes % (Manual) Seg Neutrophils # Seg Neutrophils # Man Lymphocytes # (Manual) Eosinophils # (Manual) PT INR APTT D-Dimer Heparin Anti-Xa Level POC ABG pH POC ABG pCO2 POC ABG pO2 Sodium Potassium Chloride Carbon Dioxide BUN Creatinine Glucose POC Glucose 151 H 156 H 107 H Lactic Acid Calcium Magnesium AST Alkaline Phosphatase Total Creatine Kinase CK-MB (CK-2) Troponin T C-Reactive Protein Total Protein Albumin Cholesterol LDL Cholesterol Direct HDL Cholesterol Free T4 Urine WBC (Auto) Urine Creatinine Urine Total Protein Crossmatch 08/31/18 08/31/18 08/31/18 13:51 17:28 21:40 WBC RBC Hgb Hct MCV MCH MCHC RDW Lymph % (Auto) [place] % (Auto) Eos % (Auto) Lymph # [place] # Eos # Seg Neutrophils % Seg Neuts % (Manual) Lymphocytes % (Manual) Seg Neutrophils # Seg Neutrophils # Man Lymphocytes # (Manual) Eosinophils # (Manual) PT INR APTT D-Dimer Heparin Anti-Xa Level POC ABG pH POC ABG pCO2 POC ABG pO2 Sodium Potassium Chloride Carbon Dioxide BUN Creatinine Glucose POC Glucose 170 H 239 H 209 H Lactic Acid Calcium Magnesium AST Alkaline Phosphatase Total Creatine Kinase CK-MB (CK-2) Troponin T C-Reactive Protein Total Protein Albumin Cholesterol LDL Cholesterol Direct HDL Cholesterol Free T4 Urine WBC (Auto) Urine Creatinine Urine Total Protein Crossmatch 08/31/18 08/31/18 09/01/18 22:25 22:25 01:47 WBC RBC Hgb Hct MCV MCH MCHC RDW Lymph % (Auto) [place] % (Auto) Eos % (Auto) Lymph # [place] # Eos # Seg Neutrophils % Seg Neuts % (Manual) Lymphocytes % (Manual) Seg Neutrophils # Seg Neutrophils # Man Lymphocytes # (Manual) Eosinophils # (Manual) PT INR APTT D-Dimer Heparin Anti-Xa Level POC ABG pH POC ABG pCO2 45.6 H POC ABG pO2 135 H Sodium Potassium Chloride Carbon Dioxide BUN Creatinine Glucose POC Glucose 208 H 223 H Lactic Acid Calcium Magnesium AST Alkaline Phosphatase Total Creatine Kinase CK-MB (CK-2) Troponin T C-Reactive Protein Total Protein Albumin Cholesterol LDL Cholesterol Direct HDL Cholesterol Free T4 Urine WBC (Auto) Urine Creatinine Urine Total Protein Crossmatch 09/01/18 09/01/18 09/01/18 05:18 05:19 05:19 WBC RBC 3.08 L Hgb 8.5 L Hct 25.6 L MCV 83 L MCH MCHC RDW 18.7 H Lymph % (Auto) [place] % (Auto) 7.9 H Eos % (Auto) 6.1 H Lymph # [place] # Eos # Seg Neutrophils % Seg Neuts % (Manual) Lymphocytes % (Manual) Seg Neutrophils # Seg Neutrophils # Man Lymphocytes # (Manual) Eosinophils # (Manual) PT INR APTT D-Dimer Heparin Anti-Xa Level POC ABG pH POC ABG pCO2 POC ABG pO2 Sodium Potassium Chloride 107.9 H Carbon Dioxide BUN 21 H Creatinine 0.7 L Glucose 188 H POC Glucose 236 H Lactic Acid Calcium Magnesium AST Alkaline Phosphatase Total Creatine Kinase CK-MB (CK-2) Troponin T C-Reactive Protein Total Protein Albumin Cholesterol LDL Cholesterol Direct HDL Cholesterol Free T4 Urine WBC (Auto) Urine Creatinine Urine Total Protein Crossmatch 09/01/18 09/01/18 09/01/18 09:29 14:25 18:20 WBC RBC Hgb Hct MCV MCH MCHC RDW Lymph % (Auto) [place] % (Auto) Eos % (Auto) Lymph # [place] # Eos # Seg Neutrophils % Seg Neuts % (Manual) Lymphocytes % (Manual) Seg Neutrophils # Seg Neutrophils # Man Lymphocytes # (Manual) Eosinophils # (Manual) PT INR APTT D-Dimer Heparin Anti-Xa Level POC ABG pH POC ABG pCO2 POC ABG pO2 Sodium Potassium Chloride Carbon Dioxide BUN Creatinine Glucose POC Glucose 231 H 294 H 215 H Lactic Acid Calcium Magnesium AST Alkaline Phosphatase Total Creatine Kinase CK-MB (CK-2) Troponin T C-Reactive Protein Total Protein Albumin Cholesterol LDL Cholesterol Direct HDL Cholesterol Free T4 Urine WBC (Auto) Urine Creatinine Urine Total Protein Crossmatch 09/01/18 09/02/18 09/02/18 21:21 03:28 05:25 WBC RBC Hgb Hct MCV MCH MCHC RDW Lymph % (Auto) [place] % (Auto) Eos % (Auto) Lymph # [place] # Eos # Seg Neutrophils % Seg Neuts % (Manual) Lymphocytes % (Manual) Seg Neutrophils # Seg Neutrophils # Man Lymphocytes # (Manual) Eosinophils # (Manual) PT INR APTT D-Dimer Heparin Anti-Xa Level POC ABG pH POC ABG pCO2 POC ABG pO2 Sodium Potassium Chloride Carbon Dioxide BUN Creatinine Glucose POC Glucose 236 H 194 H 183 H Lactic Acid Calcium Magnesium AST Alkaline Phosphatase Total Creatine Kinase CK-MB (CK-2) Troponin T C-Reactive Protein Total Protein Albumin Cholesterol LDL Cholesterol Direct HDL Cholesterol Free T4 Urine WBC (Auto) Urine Creatinine Urine Total Protein Crossmatch 09/02/18 09/02/18 09/02/18 09:16 15:30 17:20 WBC RBC Hgb Hct MCV MCH MCHC RDW Lymph % (Auto) [place] % (Auto) Eos % (Auto) Lymph # [place] # Eos # Seg Neutrophils % Seg Neuts % (Manual) Lymphocytes % (Manual) Seg Neutrophils # Seg Neutrophils # Man Lymphocytes # (Manual) Eosinophils # (Manual) PT INR APTT D-Dimer Heparin Anti-Xa Level POC ABG pH POC ABG pCO2 POC ABG pO2 Sodium Potassium Chloride Carbon Dioxide BUN Creatinine Glucose POC Glucose 251 H 303 H 316 H Lactic Acid Calcium Magnesium AST Alkaline Phosphatase Total Creatine Kinase CK-MB (CK-2) Troponin T C-Reactive Protein Total Protein Albumin Cholesterol LDL Cholesterol Direct HDL Cholesterol Free T4 Urine WBC (Auto) Urine Creatinine Urine Total Protein Crossmatch 09/02/18 09/03/18 09/03/18 21:25 03:32 05:20 WBC RBC Hgb Hct MCV MCH MCHC RDW Lymph % (Auto) [place] % (Auto) Eos % (Auto) Lymph # [place] # Eos # Seg Neutrophils % Seg Neuts % (Manual) Lymphocytes % (Manual) Seg Neutrophils # Seg Neutrophils # Man Lymphocytes # (Manual) Eosinophils # (Manual) PT INR APTT D-Dimer Heparin Anti-Xa Level POC ABG pH POC ABG pCO2 POC ABG pO2 Sodium Potassium Chloride Carbon Dioxide BUN Creatinine Glucose POC Glucose 242 H 305 H 225 H Lactic Acid Calcium Magnesium AST Alkaline Phosphatase Total Creatine Kinase CK-MB (CK-2) Troponin T C-Reactive Protein Total Protein Albumin Cholesterol LDL Cholesterol Direct HDL Cholesterol Free T4 Urine WBC (Auto) Urine Creatinine Urine Total Protein Crossmatch 09/03/18 09/03/18 09/03/18 07:52 07:52 10:19 WBC RBC 3.29 L Hgb 9.0 L Hct 27.3 L MCV 83 L MCH 27 L MCHC RDW 18.4 H Lymph % (Auto) [place] % (Auto) Eos % (Auto) Lymph # [place] # Eos # Seg Neutrophils % Seg Neuts % (Manual) Lymphocytes % (Manual) Seg Neutrophils # Seg Neutrophils # Man Lymphocytes # (Manual) Eosinophils # (Manual) PT INR APTT D-Dimer Heparin Anti-Xa Level POC ABG pH POC ABG pCO2 POC ABG pO2 Sodium Potassium Chloride Carbon Dioxide BUN 23 H Creatinine Glucose 205 H POC Glucose 228 H Lactic Acid Calcium 7.9 L Magnesium AST Alkaline Phosphatase Total Creatine Kinase CK-MB (CK-2) Troponin T C-Reactive Protein Total Protein Albumin Cholesterol LDL Cholesterol Direct HDL Cholesterol Free T4 Urine WBC (Auto) Urine Creatinine Urine Total Protein Crossmatch 09/03/18 09/03/18 09/03/18 13:42 17:22 21:33 WBC RBC Hgb Hct MCV MCH MCHC RDW Lymph % (Auto) [place] % (Auto) Eos % (Auto) Lymph # [place] # Eos # Seg Neutrophils % Seg Neuts % (Manual) Lymphocytes % (Manual) Seg Neutrophils # Seg Neutrophils # Man Lymphocytes # (Manual) Eosinophils # (Manual) PT INR APTT D-Dimer Heparin Anti-Xa Level POC ABG pH POC ABG pCO2 POC ABG pO2 Sodium Potassium Chloride Carbon Dioxide BUN Creatinine Glucose POC Glucose 221 H 186 H 179 H Lactic Acid Calcium Magnesium AST Alkaline Phosphatase Total Creatine Kinase CK-MB (CK-2) Troponin T C-Reactive Protein Total Protein Albumin Cholesterol LDL Cholesterol Direct HDL Cholesterol Free T4 Urine WBC (Auto) Urine Creatinine Urine Total Protein Crossmatch 09/04/18 09/04/18 09/04/18 02:07 05:54 11:03 WBC RBC Hgb Hct MCV MCH MCHC RDW Lymph % (Auto) [place] % (Auto) Eos % (Auto) Lymph # [place] # Eos # Seg Neutrophils % Seg Neuts % (Manual) Lymphocytes % (Manual) Seg Neutrophils # Seg Neutrophils # Man Lymphocytes # (Manual) Eosinophils # (Manual) PT INR APTT D-Dimer Heparin Anti-Xa Level POC ABG pH POC ABG pCO2 POC ABG pO2 Sodium Potassium Chloride Carbon Dioxide BUN Creatinine Glucose POC Glucose 174 H 171 H 181 H Lactic Acid Calcium Magnesium AST Alkaline Phosphatase Total Creatine Kinase CK-MB (CK-2) Troponin T C-Reactive Protein Total Protein Albumin Cholesterol LDL Cholesterol Direct HDL Cholesterol Free T4 Urine WBC (Auto) Urine Creatinine Urine Total Protein Crossmatch 09/04/18 09/04/18 09/04/18 14:59 18:24 21:50 WBC RBC Hgb Hct MCV MCH MCHC RDW Lymph % (Auto) [place] % (Auto) Eos % (Auto) Lymph # [place] # Eos # Seg Neutrophils % Seg Neuts % (Manual) Lymphocytes % (Manual) Seg Neutrophils # Seg Neutrophils # Man Lymphocytes # (Manual) Eosinophils # (Manual) PT INR APTT D-Dimer Heparin Anti-Xa Level POC ABG pH POC ABG pCO2 POC ABG pO2 Sodium Potassium Chloride Carbon Dioxide BUN Creatinine Glucose POC Glucose 204 H 236 H 197 H Lactic Acid Calcium Magnesium AST Alkaline Phosphatase Total Creatine Kinase CK-MB (CK-2) Troponin T C-Reactive Protein Total Protein Albumin Cholesterol LDL Cholesterol Direct HDL Cholesterol Free T4 Urine WBC (Auto) Urine Creatinine Urine Total Protein Crossmatch 09/05/18 09/05/18 09/05/18 01:32 04:52 04:52 WBC RBC 3.16 L Hgb 8.7 L Hct 26.0 L MCV 82 L MCH MCHC RDW 18.9 H Lymph % (Auto) [place] % (Auto) Eos % (Auto) Lymph # [place] # Eos # Seg Neutrophils % Seg Neuts % (Manual) Lymphocytes % (Manual) Seg Neutrophils # Seg Neutrophils # Man Lymphocytes # (Manual) Eosinophils # (Manual) PT INR APTT D-Dimer Heparin Anti-Xa Level POC ABG pH POC ABG pCO2 POC ABG pO2 Sodium Potassium Chloride 107.2 H Carbon Dioxide BUN 23 H Creatinine 0.7 L Glucose 215 H POC Glucose 210 H Lactic Acid Calcium 8.3 L Magnesium AST Alkaline Phosphatase Total Creatine Kinase CK-MB (CK-2) Troponin T C-Reactive Protein Total Protein Albumin Cholesterol LDL Cholesterol Direct HDL Cholesterol Free T4 Urine WBC (Auto) Urine Creatinine Urine Total Protein Crossmatch 09/05/18 09/05/18 09/05/18 05:36 10:26 13:11 WBC RBC Hgb Hct MCV MCH MCHC RDW Lymph % (Auto) [place] % (Auto) Eos % (Auto) Lymph # [place] # Eos # Seg Neutrophils % Seg Neuts % (Manual) Lymphocytes % (Manual) Seg Neutrophils # Seg Neutrophils # Man Lymphocytes # (Manual) Eosinophils # (Manual) PT INR APTT D-Dimer Heparin Anti-Xa Level POC ABG pH POC ABG pCO2 POC ABG pO2 Sodium Potassium Chloride Carbon Dioxide BUN Creatinine Glucose POC Glucose 216 H 206 H 161 H Lactic Acid Calcium Magnesium AST Alkaline Phosphatase Total Creatine Kinase CK-MB (CK-2) Troponin T C-Reactive Protein Total Protein Albumin Cholesterol LDL Cholesterol Direct HDL Cholesterol Free T4 Urine WBC (Auto) Urine Creatinine Urine Total Protein Crossmatch 09/05/18 09/05/18 09/05/18 18:27 18:32 22:05 WBC RBC Hgb Hct MCV MCH MCHC RDW Lymph % (Auto) [place] % (Auto) Eos % (Auto) Lymph # [place] # Eos # Seg Neutrophils % Seg Neuts % (Manual) Lymphocytes % (Manual) Seg Neutrophils # Seg Neutrophils # Man Lymphocytes # (Manual) Eosinophils # (Manual) PT INR APTT D-Dimer Heparin Anti-Xa Level POC ABG pH 7.478 H POC ABG pCO2 POC ABG pO2 138 H Sodium Potassium Chloride Carbon Dioxide BUN Creatinine Glucose POC Glucose 154 H 149 H Lactic Acid Calcium Magnesium AST Alkaline Phosphatase Total Creatine Kinase CK-MB (CK-2) Troponin T C-Reactive Protein Total Protein Albumin Cholesterol LDL Cholesterol Direct HDL Cholesterol Free T4 Urine WBC (Auto) Urine Creatinine Urine Total Protein Crossmatch 09/06/18 09/06/18 09/06/18 04:40 08:30 10:06 WBC RBC Hgb Hct MCV MCH MCHC RDW Lymph % (Auto) [place] % (Auto) Eos % (Auto) Lymph # [place] # Eos # Seg Neutrophils % Seg Neuts % (Manual) Lymphocytes % (Manual) Seg Neutrophils # Seg Neutrophils # Man Lymphocytes # (Manual) Eosinophils # (Manual) PT INR APTT D-Dimer Heparin Anti-Xa Level POC ABG pH POC ABG pCO2 POC ABG pO2 Sodium Potassium Chloride Carbon Dioxide BUN Creatinine Glucose POC Glucose 140 H 188 H 199 H Lactic Acid Calcium Magnesium AST Alkaline Phosphatase Total Creatine Kinase CK-MB (CK-2) Troponin T C-Reactive Protein Total Protein Albumin Cholesterol LDL Cholesterol Direct HDL Cholesterol Free T4 Urine WBC (Auto) Urine Creatinine Urine Total Protein Crossmatch 09/06/18 09/06/18 09/06/18 12:13 14:23 17:11 WBC RBC Hgb Hct MCV MCH MCHC RDW Lymph % (Auto) [place] % (Auto) Eos % (Auto) Lymph # [place] # Eos # Seg Neutrophils % Seg Neuts % (Manual) Lymphocytes % (Manual) Seg Neutrophils # Seg Neutrophils # Man Lymphocytes # (Manual) Eosinophils # (Manual) PT INR APTT D-Dimer Heparin Anti-Xa Level POC ABG pH POC ABG pCO2 POC ABG pO2 Sodium Potassium Chloride Carbon Dioxide BUN Creatinine Glucose POC Glucose 177 H 180 H 216 H Lactic Acid Calcium Magnesium AST Alkaline Phosphatase Total Creatine Kinase CK-MB (CK-2) Troponin T C-Reactive Protein Total Protein Albumin Cholesterol LDL Cholesterol Direct HDL Cholesterol Free T4 Urine WBC (Auto) Urine Creatinine Urine Total Protein Crossmatch 09/06/18 09/07/18 09/07/18 21:47 02:02 04:55 WBC RBC 3.08 L Hgb 8.5 L Hct 25.2 L MCV 82 L MCH MCHC RDW 18.8 H Lymph % (Auto) [place] % (Auto) Eos % (Auto) Lymph # 0.8 L [place] # Eos # Seg Neutrophils % 84.8 H Seg Neuts % (Manual) Lymphocytes % (Manual) Seg Neutrophils # Seg Neutrophils # Man Lymphocytes # (Manual) Eosinophils # (Manual) PT INR APTT D-Dimer Heparin Anti-Xa Level POC ABG pH POC ABG pCO2 POC ABG pO2 Sodium Potassium Chloride Carbon Dioxide BUN Creatinine Glucose POC Glucose 275 H 291 H Lactic Acid Calcium Magnesium AST Alkaline Phosphatase Total Creatine Kinase CK-MB (CK-2) Troponin T C-Reactive Protein Total Protein Albumin Cholesterol LDL Cholesterol Direct HDL Cholesterol Free T4 Urine WBC (Auto) Urine Creatinine Urine Total Protein Crossmatch 09/07/18 09/07/18 09/07/18 04:55 06:02 10:27 WBC RBC Hgb Hct MCV MCH MCHC RDW Lymph % (Auto) [place] % (Auto) Eos % (Auto) Lymph # [place] # Eos # Seg Neutrophils % Seg Neuts % (Manual) Lymphocytes % (Manual) Seg Neutrophils # Seg Neutrophils # Man Lymphocytes # (Manual) Eosinophils # (Manual) PT INR APTT D-Dimer Heparin Anti-Xa Level POC ABG pH POC ABG pCO2 POC ABG pO2 Sodium Potassium Chloride Carbon Dioxide BUN 30 H Creatinine 0.7 L Glucose 291 H POC Glucose 320 H 365 H Lactic Acid Calcium Magnesium AST Alkaline Phosphatase Total Creatine Kinase CK-MB (CK-2) Troponin T C-Reactive Protein Total Protein Albumin Cholesterol LDL Cholesterol Direct HDL Cholesterol Free T4 Urine WBC (Auto) Urine Creatinine Urine Total Protein Crossmatch 09/07/18 09/07/18 09/07/18 13:52 17:12 21:29 WBC RBC Hgb Hct MCV MCH MCHC RDW Lymph % (Auto) [place] % (Auto) Eos % (Auto) Lymph # [place] # Eos # Seg Neutrophils % Seg Neuts % (Manual) Lymphocytes % (Manual) Seg Neutrophils # Seg Neutrophils # Man Lymphocytes # (Manual) Eosinophils # (Manual) PT INR APTT D-Dimer Heparin Anti-Xa Level POC ABG pH POC ABG pCO2 POC ABG pO2 Sodium Potassium Chloride Carbon Dioxide BUN Creatinine Glucose POC Glucose 364 H 338 H 242 H Lactic Acid Calcium Magnesium AST Alkaline Phosphatase Total Creatine Kinase CK-MB (CK-2) Troponin T C-Reactive Protein Total Protein Albumin Cholesterol LDL Cholesterol Direct HDL Cholesterol Free T4 Urine WBC (Auto) Urine Creatinine Urine Total Protein Crossmatch 09/07/18 09/08/18 09/08/18 22:24 02:02 04:22 WBC 14.8 H RBC 3.15 L Hgb 8.5 L Hct 26.3 L MCV 83 L MCH 27 L MCHC RDW 19.6 H Lymph % (Auto) [place] % (Auto) Eos % (Auto) Lymph # [place] # Eos # Seg Neutrophils % Seg Neuts % (Manual) Lymphocytes % (Manual) Seg Neutrophils # Seg Neutrophils # Man Lymphocytes # (Manual) Eosinophils # (Manual) PT INR APTT D-Dimer Heparin Anti-Xa Level POC ABG pH 7.484 H POC ABG pCO2 POC ABG pO2 61 L Sodium Potassium Chloride Carbon Dioxide BUN Creatinine Glucose POC Glucose 324 H Lactic Acid Calcium Magnesium AST Alkaline Phosphatase Total Creatine Kinase CK-MB (CK-2) Troponin T C-Reactive Protein Total Protein Albumin Cholesterol LDL Cholesterol Direct HDL Cholesterol Free T4 Urine WBC (Auto) Urine Creatinine Urine Total Protein Crossmatch 09/08/18 09/08/18 09/08/18 04:22 05:33 09:40 WBC RBC Hgb Hct MCV MCH MCHC RDW Lymph % (Auto) [place] % (Auto) Eos % (Auto) Lymph # [place] # Eos # Seg Neutrophils % Seg Neuts % (Manual) Lymphocytes % (Manual) Seg Neutrophils # Seg Neutrophils # Man Lymphocytes # (Manual) Eosinophils # (Manual) PT INR APTT D-Dimer Heparin Anti-Xa Level POC ABG pH POC ABG pCO2 POC ABG pO2 Sodium Potassium Chloride Carbon Dioxide BUN 39 H Creatinine Glucose 320 H POC Glucose 324 H 329 H Lactic Acid Calcium 8.3 L Magnesium AST Alkaline Phosphatase Total Creatine Kinase CK-MB (CK-2) Troponin T C-Reactive Protein Total Protein Albumin Cholesterol LDL Cholesterol Direct HDL Cholesterol Free T4 Urine WBC (Auto) Urine Creatinine Urine Total Protein Crossmatch 09/08/18 09/08/18 09/08/18 13:11 18:02 21:27 WBC RBC Hgb Hct MCV MCH MCHC RDW Lymph % (Auto) [place] % (Auto) Eos % (Auto) Lymph # [place] # Eos # Seg Neutrophils % Seg Neuts % (Manual) Lymphocytes % (Manual) Seg Neutrophils # Seg Neutrophils # Man Lymphocytes # (Manual) Eosinophils # (Manual) PT INR APTT D-Dimer Heparin Anti-Xa Level POC ABG pH POC ABG pCO2 POC ABG pO2 Sodium Potassium Chloride Carbon Dioxide BUN Creatinine Glucose POC Glucose 369 H 331 H 304 H Lactic Acid Calcium Magnesium AST Alkaline Phosphatase Total Creatine Kinase CK-MB (CK-2) Troponin T C-Reactive Protein Total Protein Albumin Cholesterol LDL Cholesterol Direct HDL Cholesterol Free T4 Urine WBC (Auto) Urine Creatinine Urine Total Protein Crossmatch 09/09/18 09/09/18 09/09/18 02:03 05:29 09:20 WBC RBC Hgb Hct MCV MCH MCHC RDW Lymph % (Auto) [place] % (Auto) Eos % (Auto) Lymph # [place] # Eos # Seg Neutrophils % Seg Neuts % (Manual) Lymphocytes % (Manual) Seg Neutrophils # Seg Neutrophils # Man Lymphocytes # (Manual) Eosinophils # (Manual) PT INR APTT D-Dimer Heparin Anti-Xa Level POC ABG pH POC ABG pCO2 POC ABG pO2 Sodium Potassium Chloride Carbon Dioxide BUN Creatinine Glucose POC Glucose 361 H 204 H 292 H Lactic Acid Calcium Magnesium AST Alkaline Phosphatase Total Creatine Kinase CK-MB (CK-2) Troponin T C-Reactive Protein Total Protein Albumin Cholesterol LDL Cholesterol Direct HDL Cholesterol Free T4 Urine WBC (Auto) Urine Creatinine Urine Total Protein Crossmatch 09/09/18 09/09/18 09/09/18 14:20 15:04 18:08 WBC RBC Hgb Hct MCV MCH MCHC RDW Lymph % (Auto) [place] % (Auto) Eos % (Auto) Lymph # [place] # Eos # Seg Neutrophils % Seg Neuts % (Manual) Lymphocytes % (Manual) Seg Neutrophils # Seg Neutrophils # Man Lymphocytes # (Manual) Eosinophils # (Manual) PT INR APTT D-Dimer Heparin Anti-Xa Level POC ABG pH 7.464 H POC ABG pCO2 POC ABG pO2 109 H Sodium Potassium Chloride Carbon Dioxide BUN Creatinine Glucose POC Glucose 253 H 196 H Lactic Acid Calcium Magnesium AST Alkaline Phosphatase Total Creatine Kinase CK-MB (CK-2) Troponin T C-Reactive Protein Total Protein Albumin Cholesterol LDL Cholesterol Direct HDL Cholesterol Free T4 Urine WBC (Auto) Urine Creatinine Urine Total Protein Crossmatch 09/09/18 09/10/18 09/10/18 22:23 02:32 06:10 WBC RBC Hgb Hct MCV MCH MCHC RDW Lymph % (Auto) [place] % (Auto) Eos % (Auto) Lymph # [place] # Eos # Seg Neutrophils % Seg Neuts % (Manual) Lymphocytes % (Manual) Seg Neutrophils # Seg Neutrophils # Man Lymphocytes # (Manual) Eosinophils # (Manual) PT INR APTT D-Dimer Heparin Anti-Xa Level POC ABG pH POC ABG pCO2 POC ABG pO2 Sodium Potassium Chloride Carbon Dioxide BUN Creatinine Glucose POC Glucose 245 H 238 H 250 H Lactic Acid Calcium Magnesium AST Alkaline Phosphatase Total Creatine Kinase CK-MB (CK-2) Troponin T C-Reactive Protein Total Protein Albumin Cholesterol LDL Cholesterol Direct HDL Cholesterol Free T4 Urine WBC (Auto) Urine Creatinine Urine Total Protein Crossmatch 09/10/18 09/10/18 09/10/18 08:16 11:35 21:18 WBC RBC Hgb Hct MCV MCH MCHC RDW Lymph % (Auto) [place] % (Auto) Eos % (Auto) Lymph # [place] # Eos # Seg Neutrophils % Seg Neuts % (Manual) Lymphocytes % (Manual) Seg Neutrophils # Seg Neutrophils # Man Lymphocytes # (Manual) Eosinophils # (Manual) PT INR APTT D-Dimer Heparin Anti-Xa Level POC ABG pH POC ABG pCO2 POC ABG pO2 Sodium Potassium Chloride Carbon Dioxide BUN Creatinine Glucose POC Glucose 232 H 267 H 270 H Lactic Acid Calcium Magnesium AST Alkaline Phosphatase Total Creatine Kinase CK-MB (CK-2) Troponin T C-Reactive Protein Total Protein Albumin Cholesterol LDL Cholesterol Direct HDL Cholesterol Free T4 Urine WBC (Auto) Urine Creatinine Urine Total Protein Crossmatch 09/11/18 09/11/18 09/11/18 06:21 07:49 12:02 WBC RBC Hgb Hct MCV MCH MCHC RDW Lymph % (Auto) [place] % (Auto) Eos % (Auto) Lymph # [place] # Eos # Seg Neutrophils % Seg Neuts % (Manual) Lymphocytes % (Manual) Seg Neutrophils # Seg Neutrophils # Man Lymphocytes # (Manual) Eosinophils # (Manual) PT INR APTT D-Dimer Heparin Anti-Xa Level POC ABG pH POC ABG pCO2 POC ABG pO2 Sodium Potassium Chloride Carbon Dioxide BUN Creatinine Glucose POC Glucose 255 H 233 H 200 H Lactic Acid Calcium Magnesium AST Alkaline Phosphatase Total Creatine Kinase CK-MB (CK-2) Troponin T C-Reactive Protein Total Protein Albumin Cholesterol LDL Cholesterol Direct HDL Cholesterol Free T4 Urine WBC (Auto) Urine Creatinine Urine Total Protein Crossmatch 09/11/18 09/11/18 09/11/18 16:35 21:09 22:33 WBC 12.1 H RBC 3.16 L Hgb 8.5 L Hct 26.2 L MCV 83 L MCH 27 L MCHC RDW 20.7 H Lymph % (Auto) [place] % (Auto) Eos % (Auto) Lymph # [place] # Eos # Seg Neutrophils % Seg Neuts % (Manual) 77.0 H Lymphocytes % (Manual) 13.0 L Seg Neutrophils # Seg Neutrophils # Man 9.3 H Lymphocytes # (Manual) Eosinophils # (Manual) 0.5 H PT INR APTT D-Dimer Heparin Anti-Xa Level POC ABG pH POC ABG pCO2 POC ABG pO2 Sodium Potassium Chloride Carbon Dioxide BUN Creatinine Glucose POC Glucose 210 H 256 H Lactic Acid Calcium Magnesium AST Alkaline Phosphatase Total Creatine Kinase CK-MB (CK-2) Troponin T C-Reactive Protein Total Protein Albumin Cholesterol LDL Cholesterol Direct HDL Cholesterol Free T4 Urine WBC (Auto) Urine Creatinine Urine Total Protein Crossmatch 09/11/18 09/12/18 09/12/18 23:59 05:07 05:07 WBC RBC 2.89 L Hgb 7.9 L Hct 23.9 L MCV 83 L MCH 27 L MCHC RDW 20.1 H Lymph % (Auto) [place] % (Auto) 7.8 H Eos % (Auto) Lymph # [place] # 0.9 H Eos # Seg Neutrophils % 70.2 H Seg Neuts % (Manual) Lymphocytes % (Manual) Seg Neutrophils # Seg Neutrophils # Man Lymphocytes # (Manual) Eosinophils # (Manual) PT INR APTT D-Dimer Heparin Anti-Xa Level POC ABG pH POC ABG pCO2 POC ABG pO2 Sodium 149 H D Potassium 3.5 L Chloride 110.6 H Carbon Dioxide BUN 32 H Creatinine Glucose 222 H POC Glucose 267 H Lactic Acid Calcium 8.2 L Magnesium AST Alkaline Phosphatase Total Creatine Kinase CK-MB (CK-2) Troponin T C-Reactive Protein Total Protein Albumin Cholesterol LDL Cholesterol Direct HDL Cholesterol Free T4 Urine WBC (Auto) Urine Creatinine Urine Total Protein Crossmatch 09/12/18 09/12/18 09/12/18 05:36 07:22 11:18 WBC RBC Hgb Hct MCV MCH MCHC RDW Lymph % (Auto) [place] % (Auto) Eos % (Auto) Lymph # [place] # Eos # Seg Neutrophils % Seg Neuts % (Manual) Lymphocytes % (Manual) Seg Neutrophils # Seg Neutrophils # Man Lymphocytes # (Manual) Eosinophils # (Manual) PT INR APTT D-Dimer Heparin Anti-Xa Level POC ABG pH POC ABG pCO2 POC ABG pO2 Sodium Potassium Chloride Carbon Dioxide BUN Creatinine Glucose POC Glucose 251 H 210 H 202 H Lactic Acid Calcium Magnesium AST Alkaline Phosphatase Total Creatine Kinase CK-MB (CK-2) Troponin T C-Reactive Protein Total Protein Albumin Cholesterol LDL Cholesterol Direct HDL Cholesterol Free T4 Urine WBC (Auto) Urine Creatinine Urine Total Protein Crossmatch 09/12/18 09/12/18 09/12/18 16:12 18:24 22:09 WBC RBC Hgb Hct MCV MCH MCHC RDW Lymph % (Auto) [place] % (Auto) Eos % (Auto) Lymph # [place] # Eos # Seg Neutrophils % Seg Neuts % (Manual) Lymphocytes % (Manual) Seg Neutrophils # Seg Neutrophils # Man Lymphocytes # (Manual) Eosinophils # (Manual) PT INR APTT D-Dimer Heparin Anti-Xa Level POC ABG pH POC ABG pCO2 POC ABG pO2 Sodium Potassium Chloride Carbon Dioxide BUN Creatinine Glucose POC Glucose 209 H 212 H 173 H Lactic Acid Calcium Magnesium AST Alkaline Phosphatase Total Creatine Kinase CK-MB (CK-2) Troponin T C-Reactive Protein Total Protein Albumin Cholesterol LDL Cholesterol Direct HDL Cholesterol Free T4 Urine WBC (Auto) Urine Creatinine Urine Total Protein Crossmatch 09/13/18 09/13/18 09/13/18 02:25 05:54 07:06 WBC RBC 3.00 L Hgb 8.2 L Hct 24.9 L MCV 83 L MCH 27 L MCHC RDW 21.2 H Lymph % (Auto) [place] % (Auto) 9.6 H Eos % (Auto) 7.6 H Lymph # [place] # Eos # 0.7 H Seg Neutrophils % Seg Neuts % (Manual) Lymphocytes % (Manual) Seg Neutrophils # Seg Neutrophils # Man Lymphocytes # (Manual) Eosinophils # (Manual) PT INR APTT D-Dimer Heparin Anti-Xa Level POC ABG pH POC ABG pCO2 POC ABG pO2 Sodium Potassium Chloride Carbon Dioxide BUN Creatinine Glucose POC Glucose 167 H 178 H Lactic Acid Calcium Magnesium AST Alkaline Phosphatase Total Creatine Kinase CK-MB (CK-2) Troponin T C-Reactive Protein Total Protein Albumin Cholesterol LDL Cholesterol Direct HDL Cholesterol Free T4 Urine WBC (Auto) Urine Creatinine Urine Total Protein Crossmatch 09/13/18 09/13/18 09/13/18 07:06 09:46 14:18 WBC RBC Hgb Hct MCV MCH MCHC RDW Lymph % (Auto) [place] % (Auto) Eos % (Auto) Lymph # [place] # Eos # Seg Neutrophils % Seg Neuts % (Manual) Lymphocytes % (Manual) Seg Neutrophils # Seg Neutrophils # Man Lymphocytes # (Manual) Eosinophils # (Manual) PT INR APTT D-Dimer Heparin Anti-Xa Level POC ABG pH POC ABG pCO2 POC ABG pO2 Sodium 146 H Potassium 3.3 L Chloride 107.6 H Carbon Dioxide BUN 26 H Creatinine Glucose 138 H POC Glucose 157 H 177 H Lactic Acid Calcium 8.0 L Magnesium AST Alkaline Phosphatase Total Creatine Kinase CK-MB (CK-2) Troponin T C-Reactive Protein Total Protein Albumin Cholesterol LDL Cholesterol Direct HDL Cholesterol Free T4 Urine WBC (Auto) Urine Creatinine Urine Total Protein Crossmatch 09/13/18 09/13/18 09/14/18 17:21 22:19 02:19 WBC RBC Hgb Hct MCV MCH MCHC RDW Lymph % (Auto) [place] % (Auto) Eos % (Auto) Lymph # [place] # Eos # Seg Neutrophils % Seg Neuts % (Manual) Lymphocytes % (Manual) Seg Neutrophils # Seg Neutrophils # Man Lymphocytes # (Manual) Eosinophils # (Manual) PT INR APTT D-Dimer Heparin Anti-Xa Level POC ABG pH POC ABG pCO2 POC ABG pO2 Sodium Potassium Chloride Carbon Dioxide BUN Creatinine Glucose POC Glucose 169 H 141 H 176 H Lactic Acid Calcium Magnesium AST Alkaline Phosphatase Total Creatine Kinase CK-MB (CK-2) Troponin T C-Reactive Protein Total Protein Albumin Cholesterol LDL Cholesterol Direct HDL Cholesterol Free T4 Urine WBC (Auto) Urine Creatinine Urine Total Protein Crossmatch 09/14/18 09/14/18 09/14/18 05:01 10:22 14:30 WBC RBC Hgb Hct MCV MCH MCHC RDW Lymph % (Auto) [place] % (Auto) Eos % (Auto) Lymph # [place] # Eos # Seg Neutrophils % Seg Neuts % (Manual) Lymphocytes % (Manual) Seg Neutrophils # Seg Neutrophils # Man Lymphocytes # (Manual) Eosinophils # (Manual) PT INR APTT D-Dimer Heparin Anti-Xa Level POC ABG pH POC ABG pCO2 POC ABG pO2 Sodium Potassium Chloride Carbon Dioxide BUN Creatinine Glucose POC Glucose 181 H 201 H 172 H Lactic Acid Calcium Magnesium AST Alkaline Phosphatase Total Creatine Kinase CK-MB (CK-2) Troponin T C-Reactive Protein Total Protein Albumin Cholesterol LDL Cholesterol Direct HDL Cholesterol Free T4 Urine WBC (Auto) Urine Creatinine Urine Total Protein Crossmatch 09/14/18 09/14/18 09/15/18 17:29 22:25 03:40 WBC RBC Hgb Hct MCV MCH MCHC RDW Lymph % (Auto) [place] % (Auto) Eos % (Auto) Lymph # [place] # Eos # Seg Neutrophils % Seg Neuts % (Manual) Lymphocytes % (Manual) Seg Neutrophils # Seg Neutrophils # Man Lymphocytes # (Manual) Eosinophils # (Manual) PT INR APTT D-Dimer Heparin Anti-Xa Level POC ABG pH POC ABG pCO2 POC ABG pO2 Sodium Potassium Chloride Carbon Dioxide BUN Creatinine Glucose POC Glucose 142 H 207 H 188 H Lactic Acid Calcium Magnesium AST Alkaline Phosphatase Total Creatine Kinase CK-MB (CK-2) Troponin T C-Reactive Protein Total Protein Albumin Cholesterol LDL Cholesterol Direct HDL Cholesterol Free T4 Urine WBC (Auto) Urine Creatinine Urine Total Protein Crossmatch 09/15/18 09/15/18 09/15/18 06:39 10:43 15:01 WBC RBC Hgb Hct MCV MCH MCHC RDW Lymph % (Auto) [place] % (Auto) Eos % (Auto) Lymph # [place] # Eos # Seg Neutrophils % Seg Neuts % (Manual) Lymphocytes % (Manual) Seg Neutrophils # Seg Neutrophils # Man Lymphocytes # (Manual) Eosinophils # (Manual) PT INR APTT D-Dimer Heparin Anti-Xa Level POC ABG pH POC ABG pCO2 POC ABG pO2 Sodium Potassium Chloride Carbon Dioxide BUN Creatinine Glucose POC Glucose 215 H 191 H 185 H Lactic Acid Calcium Magnesium AST Alkaline Phosphatase Total Creatine Kinase CK-MB (CK-2) Troponin T C-Reactive Protein Total Protein Albumin Cholesterol LDL Cholesterol Direct HDL Cholesterol Free T4 Urine WBC (Auto) Urine Creatinine Urine Total Protein Crossmatch 09/15/18 09/15/18 09/15/18 15:22 18:19 22:01 WBC RBC Hgb Hct MCV MCH MCHC RDW Lymph % (Auto) [place] % (Auto) Eos % (Auto) Lymph # [place] # Eos # Seg Neutrophils % Seg Neuts % (Manual) Lymphocytes % (Manual) Seg Neutrophils # Seg Neutrophils # Man Lymphocytes # (Manual) Eosinophils # (Manual) PT INR APTT D-Dimer Heparin Anti-Xa Level POC ABG pH POC ABG pCO2 POC ABG pO2 Sodium Potassium Chloride Carbon Dioxide BUN Creatinine Glucose POC Glucose 173 H 179 H 185 H Lactic Acid Calcium Magnesium AST Alkaline Phosphatase Total Creatine Kinase CK-MB (CK-2) Troponin T C-Reactive Protein Total Protein Albumin Cholesterol LDL Cholesterol Direct HDL Cholesterol Free T4 Urine WBC (Auto) Urine Creatinine Urine Total Protein Crossmatch 09/16/18 09/16/18 09/16/18 02:13 06:23 09:45 WBC RBC Hgb Hct MCV MCH MCHC RDW Lymph % (Auto) [place] % (Auto) Eos % (Auto) Lymph # [place] # Eos # Seg Neutrophils % Seg Neuts % (Manual) Lymphocytes % (Manual) Seg Neutrophils # Seg Neutrophils # Man Lymphocytes # (Manual) Eosinophils # (Manual) PT INR APTT D-Dimer Heparin Anti-Xa Level POC ABG pH POC ABG pCO2 POC ABG pO2 Sodium Potassium Chloride Carbon Dioxide BUN Creatinine Glucose POC Glucose 198 H 218 H 212 H Lactic Acid Calcium Magnesium AST Alkaline Phosphatase Total Creatine Kinase CK-MB (CK-2) Troponin T C-Reactive Protein Total Protein Albumin Cholesterol LDL Cholesterol Direct HDL Cholesterol Free T4 Urine WBC (Auto) Urine Creatinine Urine Total Protein Crossmatch 09/16/18 13:54 WBC RBC Hgb Hct MCV MCH MCHC RDW Lymph % (Auto) [place] % (Auto) Eos % (Auto) Lymph # [place] # Eos # Seg Neutrophils % Seg Neuts % (Manual) Lymphocytes % (Manual) Seg Neutrophils # Seg Neutrophils # Man Lymphocytes # (Manual) Eosinophils # (Manual) PT INR APTT D-Dimer Heparin Anti-Xa Level POC ABG pH POC ABG pCO2 POC ABG pO2 Sodium Potassium Chloride Carbon Dioxide BUN Creatinine Glucose POC Glucose 193 H Lactic Acid Calcium Magnesium AST Alkaline Phosphatase Total Creatine Kinase CK-MB (CK-2) Troponin T C-Reactive Protein Total Protein Albumin Cholesterol LDL Cholesterol Direct HDL Cholesterol Free T4 Urine WBC (Auto) Urine Creatinine Urine Total Protein Crossmatch Allied health notes reviewed: nursing
[2018-09-16] MEDS: LOVENOX SUB-Q SCH (22:25)
[2018-09-16] MEDS: LANTUS SUB-Q SCH (22:27)
[2018-09-17] MEDS: HumaLOG SUB-Q SCH ×3 (02:15→11:24)
[2018-09-17] MEDS: APRESOLINE PO SCH (06:21)
--- NOTE | 2018-09-17 07:25 | Discharge Summary ---
Providers - Providers Date of Admission: 08/13/18 01:34 Date of discharge: 09/17/18 Attending physician: SUHAS FRANCOIS MD 08/13/18 01:34 Consult to Physician [CONS] Routine Comment: Consulting Provider: KISHOR NAZARIO Physician Instructions: Reason For Exam: cc 08/13/18 09:15 Consult to Wound/ET Nurse [CONS] Routine Reason For Exam: wound eval 08/13/18 12:06 Consult to Physician [CONS] Routine Comment: Consulting Provider: TONY URRUTIA Physician Instructions: Reason For Exam: seizure 08/13/18 12:07 Consult to Dietitian/Nutrition [CONS] Routine Physician Instructions: Reason For Exam: Clarification needed on tube feed type. Reason for Consult: Write/Manage Tube Feeding Consult to PICC Line RN [CONS] Routine Reason For Exam: vasopressors Type Line:: PICC Consult to Physician [CONS] Routine Comment: Consulting Provider: ISSA REVELES Physician Instructions: Reason For Exam: maylin 08/13/18 12:24 Consult to Dietitian/Nutrition [CONS] Routine Physician Instructions: Reason For Exam: Reason for Consult: Evaluate nutritional intake 08/14/18 10:48 Consult to Physician [CONS] Routine Comment: Consulting Provider: ULISES DESAI Physician Instructions: Reason For Exam: anoxic brain injury 08/17/18 13:47 Consult to Physician [CONS] Routine Comment: Consulting Provider: LUANNE LAWRENCE Physician Instructions: Reason For Exam: Tracheostomy placement 08/25/18 10:24 Consult to Physician [CONS] Routine Comment: Consulting Provider: MALKA WHITE Physician Instructions: Second opinion for brain activity Reason For Exam: Re-assess for brain activity 08/25/18 18:37 Consult to Dietitian/Nutrition [CONS] Routine Physician Instructions: Assess nutrtn needs, initiate, modify, manage TF Reason For Exam: Reason for Consult: Write/Manage Tube Feeding Reason for Consult: Write/Manage Tube Feeding 09/07/18 16:13 Physical Therapy Evaluation and Treat [CONS] Routine Comment: Reason For Exam: Debility 09/11/18 13:29 Consult to Physician [CONS] Routine Comment: Consulting Provider: VINNY DAVIES Physician Instructions: POSSIBLE DEBRIDEMENT Reason For Exam: EVALUATE RIGHT HEEL SOFT ESCHAR Primary care physician: JARETT BALLESTEROS Hospitalization Reason for admission: Respiratory failure, Recurrent cardiac arrest, pneumothorax Condition: Fair Hospital course: Patient is 77 yo man from [facility] with a history of respiratory failure, CVA with tracheostomy and Gtube who presented to [facility] ED following car diac arrest after being found unresponsive at the assisted. Time down is unknown per records. The patient is on the vent and unresponsive, all history is obtained from the chart. Patient had multiple episodes of arrest/pulselessness. He has been on the vent since then without any improvement. Per ER notes the patient was bagged via tracheostomy which continued to have low tidal volumes and so the patient with orally intubated after which tidal volumes improved. believe that he aspirated with a mucus plug that caused the cardiopulmonary arrest not NSTEMI.Initially, he went to [facility], [place] may 05 to june 05, he had fluid on brain and multiple strokes per family and they drained the fluid off the brain. The trach was placed at [facility] [place] and patient went to [facility], x 7 weeks (trach was changed where capped was placed), he was doing well, talking and sitting up. Then he went to [facility], August 03 and his oral care was horrible. The trach care was horrible and not enough suctioning done. Mouth with copious amount of crud. Then on August 12, Friday, he had voice changing and mucus plugging. Followed by respiratory arrest. The NM brain flow scan showed reduced blood flow. Patient had evaluation by neurology who reports patient with intact brainstem function. Patient still comatose, no improvement. LTAC was recommended but denied. Sepsis: Previously Resolved with treating UTI. Patient had been off antibiotics. However with new temperature spike 09/10/18. Blood cultures are negative. Will continue with Rocephin and will continue ceftin. Cardiopulmonary arrest x 3: Most likely related to mucus plugging >NSTEMI, leading to severe irreversible brain damage: supportive care. Acute on chronic respiratory failure Trach has been removed when patient was orally intubated, continue ventilator management per pulmonology. Tracheostomy was replaced by surgery on 08/25/18. Tracheostomy care, airway clearance, secretion management Right pneumothorax, resolved. Status post chest tube. Hypoxic encephalopathy: neurology consult appreciated, poor prognosis, poor likelihood of recovery, preserved brain stem function otherwise unresponsive. EEG is suggestive hypoxic encephalopathy. Seizure disorder with breakthrough seizures. Continue Keppra twice a day. Seizure precautions. Hypertension. Hydralazine 100 mg 3 times a day, cont norvasc. Hypernatremia, Continue free water via G-tube, sp hypotonic IV solution. Improved. Acute kidney injury likely due to ATN Nephrology following, treated with IV fluid, avoid renal toxic agents. Resolved. NSTEMI: treated with IV heparin, asa, statin, no bblocker due to bradycardia, hypotension, Cardiology recommend conservative management. Severe protein calorie malnutrition: Dietitian consulted, continue tube feedings. Type 2 dm with persistent hyperglycemia: cont insulins and adjust according, on tube feedings. Anemia: s/p transfusion; H/H holding.Urinary retention: condom cath. Patient has poor prognosis and transferred to SNF. Disposition: [id number]/TX-03 SNF W [facility] CERT Time spent for discharge: 35 minutes - Discharge Diagnoses (1) MAYLIN (acute kidney injury) Status: Acute (2) Acute and chronic respiratory failure Status: Acute Qualifiers: Respiratory failure complication: hypoxia Qualified Code(s): J96.21 - Acute and chronic respiratory failure with hypoxia (3) Altered mental state Status: Acute (4) Anemia Status: Acute (5) Cardiac arrest Status: Acute (6) Fever Status: Acute (7) Hypernatremia Status: Acute Core Measure Documentation - Palliative Care Palliative Care/ Comfort Measures: Not Applicable - Core Measures Any of the following diagnoses?: history only (Stroke) Exam - Physical Exam Narrative exam: Patient is on tracheostomy tube. The patient appeared well nourished and normally developed. Vital signs as documented. Head exam is unremarkable. No scleral icterus . Neck is without jugular venous distension, thyromegaly, or carotid bruits. Lungs are clear to auscultation. Cardiac exam reveals regular rate and Rhythm. Abdominal exam reveals PEG tube in place. Extremities are nonedematous and both femoral and pedal pulses are normal. MD UROLOGIST:patient is comatose. - Constitutional Vitals: Temp Pulse Resp BP Pulse Ox 97.4 F L 83 18 119/51 100 09/17/18 02:41 09/17/18 02:38 09/17/18 02:41 09/17/18 02:38 09/17/18 05:00 Plan Activity: other (Patient is immobile) Weight Bearing Status: Non-Weight Bearing Diet: other (Continue tube feeding) Follow up with: JARETT BALLESTEROS MD [Primary Care Provider] - 3-5 Days Prescriptions: Cefuroxime Axetil [Ceftin] 250 mg PO Q12H #100 ml
[2018-09-17 08:28] VITALS: BP 133/60
[2018-09-17] MEDS: TYLENOL PO PRN (09:30)
[2018-09-17] MEDS: ROCEPHIN/NS 1 GM/50 ML 1 GM/50 ML BAG IV SCH (09:30)
[2018-09-17] MEDS: PEPCID PO SCH (09:32)
[2018-09-17] MEDS: NORVASC FEEDTUBE SCH (09:32)
[2018-09-17] MEDS: KEPPRA PO SCH (09:32)
[2018-09-17] MEDS: SENOKOT S PO SCH (09:32)
[2018-09-17] MEDS: SODIUM CHLORIDE FLUSH SYRINGE 10 ML IV SCH (09:33)
[2018-09-17] MEDS: ASPIRIN PO SCH (09:33)
== END 2018-09-17 13:25 | DRG 3 ==
LOC: ED 21:00 → CC1 08-13 01:34 → 4A 09-09 17:37 → 2B-ACE 09-14 16:16
PROVIDERS: ADMIT Internal Medicine; ATTEND Internal Medicine
PROC: 5A1955Z Respiratory Ventilation, Greater than 96 Consecutive Hours (ICD-10-PCS; principal; 2018-08-12)
PROC: 0BH17EZ Insertion of Endotracheal Airway into Trachea, Via Natural or Artificial Opening (ICD-10-PCS; 2018-08-12)
PROC: 0W9930Z Drainage of Right Pleural Cavity with Drainage Device, Percutaneous Approach (ICD-10-PCS; 2018-08-12)
PROC: 06HN33Z Insertion of Infusion Device into Left Femoral Vein, Percutaneous Approach (ICD-10-PCS; 2018-08-12)
PROC: B54CZZA Ultrasonography of Left Lower Extremity Veins, Guidance (ICD-10-PCS; 2018-08-12)
PROC: 4A033R1 Measurement of Arterial Saturation, Peripheral, Percutaneous Approach (ICD-10-PCS; 2018-08-13)
PROC: 5A12012 Performance of Cardiac Output, Single, Manual (ICD-10-PCS; 2018-08-13)
PROC: 02HV33Z Insertion of Infusion Device into Superior Vena Cava, Percutaneous Approach (ICD-10-PCS; 2018-08-13)
PROC: 30233N1 Transfusion of Nonautologous Red Blood Cells into Peripheral Vein, Percutaneous Approach (ICD-10-PCS; 2018-08-15)
PROC: 0B113F4 Bypass Trachea to Cutaneous with Tracheostomy Device, Percutaneous Approach (ICD-10-PCS; 2018-08-25)
PROC: 0JBQ0ZZ Excision of Right Foot Subcutaneous Tissue and Fascia, Open Approach (ICD-10-PCS; 2018-08-25)
DX: A41.9 Sepsis, unspecified organism (principal); I46.9 Cardiac arrest, cause unspecified; R65.21 Severe sepsis with septic shock; E43 Unspecified severe protein-calorie malnutrition; J96.21 Acute and chronic respiratory failure with hypoxia; I21.4 Non-ST elevation (NSTEMI) myocardial infarction; J93.9 Pneumothorax, unspecified; E87.0 Hyperosmolality and hypernatremia; T79.7XXA Traumatic subcutaneous emphysema, initial encounter; N39.0 Urinary tract infection, site not specified; I69.351 Hemiplegia and hemiparesis following cerebral infarction affecting right dominant side; N17.9 Acute kidney failure, unspecified; Z99.11 Dependence on respirator [ventilator] status; G93.1 Anoxic brain damage, not elsewhere classified; Z93.0 Tracheostomy status; E78.5 Hyperlipidemia, unspecified; I08.1 Rheumatic disorders of both mitral and tricuspid valves; R31.9 Hematuria, unspecified; D64.9 Anemia, unspecified; L89.610 Pressure ulcer of right heel, unstageable; G40.901 Epilepsy, unspecified, not intractable, with status epilepticus; R13.12 Dysphagia, oropharyngeal phase; E87.6 Hypokalemia; R33.9 Retention of urine, unspecified; E11.65 Type 2 diabetes mellitus with hyperglycemia; T17.990A Other foreign object in respiratory tract, part unspecified in causing asphyxiation, initial encounter; I16.0 Hypertensive urgency; Z74.01 Bed confinement status; Z79.4 Long term (current) use of insulin; Z79.82 Long term (current) use of aspirin; Z68.27 Body mass index [BMI] 27.0-27.9, adult
CPT/HCPCS: 36415; 36600; 70450; 71045; 74018; 76770; 78601; 80048; 80053; 80061; 80307; 81001; 82140; 82550; 82553; 82570; 82803; 82962; 83735; 84100; 84156; 84300; 84439; 84443; 84484; 85007; 85014; 85018; 85025; 85027; 85049; 85379; 85520; 85610; 85730; 86140; 86850; 86900; 86901; 86920; 87040; 87070; 87076; 87086; 87186; 87205; 89050; 93005; 93010; 93306; 93925; 93970; 94002; 94003; 94760; 95819; 96365; 96375; 99285; G0378; A9270-GY; A9512; J0696; J1200; J1644; J1650; J1815; J1940; J1953; J2060; J2543; J2704; J2920; J2930; J3370; J3480; J7030; J7040; J7070; P9016

== ENCOUNTER 2018-09-27 22:40 | Inpatient (IN) | payer MEDICARE ==
[2018-09-27] MEDS ORDERED: NACL 0.9% 1000 ML IV ONE (22:50)
--- NOTE | 2018-09-27 23:00 | Emergency Department Report ---
ED Fever HPI - General Stated Complaint: HYPERGLYCEMIA Time Seen by Provider: 09/27/18 22:47 Source: EMS, [facility] records, old records - History of Present Illness Initial Comments: Mr. phelan is a 77-year-old male with recent prolonged hospitalization due to cardiac arrest. Previous history of CVA,. Recently discharged 10 days ago from our hospital with poor prognosis. Patient was comatose up on discharge with hypoxic encephalopathy,. According to neurology consult poor prognosis, poor left ventricular recovery. Preserved brainstem function but otherwise unresponsive. EEG suggestive of hypoxic encephalopathy. He returns from [facility] today For severe hyperglycemia. Treated with subcutaneous insulin at the facility. Noted to have 102.5 rectal temperature. He is currently nonverbal. He does not follow commands. He has Douglass catheter in place. I spoke with and daughter. They both informed me that today he had new tube feeding initiated. The tube feedings contained more protein in order to hasten his wound healing. He has decubitus ulcers on his heels and sacrum. There does not appear to be infection at the sacral ulcer according to our nurse report. I did view the image obtained and digital camera. stated that he was last in his normal state of health in May just after the Super Bowl. He had difficulty with ambulation and slurred speech. Also had urinary urgency. He was diagnosed with hydrocephalus transferred from [facility] to [place]. After ventriculostomy had decreased responsiveness for 5 weeks. Transferred to [facility]. At [facility] cardiac arrest occurred. He was then hospitalized at our hospital for 5 weeks. For the past 10 days he has resided at [facility]. and daughter are very pleased with the care that he is currently receiving. Timing/Duration: this evening Fever Severity/Quality: greater than 102 F Fever Therapy TELEPHONE OPERATOR RECEPTIONIST: Tylenol ED Review of Systems ROS: Stated complaint: HYPERGLYCEMIA Other details as noted in HPI Comment: Unobtainable due to pts medical conditions (comatose nonverbal) ED Past Medical Hx - Past Medical History Previous Medical History?: Yes Hx Hypertension: Yes Hx CVA: Yes Hx Diabetes: Yes Hx Deep Vein Thrombosis: (history of CVA) Hx Seizures: Yes (status epilepticus) Hx HIV: No Additional medical history: Muscle Weakness, Dysphagia, Treacheostomy, Gastrostomy,Anemia, RESP Failure,Prostatic Hyperplasia, Hyperlipidemia, Toxic Encephalopathy, Metabolic Encepholopathy, Hemiplegia - Surgical History Hx Pacemaker: No Hx Internal Defibrillator: No Additional Surgical History: Treachostomy, Gastrostomy - Social History Smoking Status: Unknown if ever smoked - Medications Home Medications: Home Medications Medication Instructions Recorded Confirmed Last Taken Type Acetaminophen TAB 2 1000units FEEDTUBE Q6HR PRN 08/18/18 08/18/18 Unknown History Amantadine [Symmetrel] 100 mg FEEDTUBE DAILY 08/18/18 08/18/18 08/13/18 History Amlodipine Besylate [Norvasc] 5 mg FEEDTUBE DAILY 08/18/18 08/18/18 08/13/18 History Ascorbic Acid [Vitamin C Oral Liq] 500 mg FEEDTUBE QDAY 08/18/18 08/18/18 08/13/18 History Ascorbic Acid [Vitamin C with Fiordaliza 1 tab FEEDTUBE DAILY 08/18/18 08/18/18 Unkn own History Hips] Aspirin BABY CHEW TAB 1 tab FEEDTUBE DAILY 08/18/18 08/18/18 Unknown History Aspirin BABY CHEW TAB 81 mg FEEDTUBE DAILY 08/18/18 08/18/18 08/13/18 History Atorvastatin Calcium [Lipitor] 40 mg FEEDTUBE DAILY 08/18/18 08/18/18 08/13/18 History Benazepril HCl 10 mg FEEDTUBE DAILY 08/18/18 08/18/18 08/13/18 History Bisacodyl [Dulcolax suppos] 10 mg PA QDAY PRN 08/18/18 08/18/18 Unknown History Docusate Sodium [Colace ORAL LIQ] 100 mg FEEDTUBE QDAY PRN 08/18/18 08/18/18 Unknown History Ferrous Sulfate [Ferrous Sulfate 7.5 ml FEEDTUBE DAILY 08/18/18 08/18/18 History 220 MG/5 ML] Glycopyrrolate [Robinul] 2 mg FEEDTUBE Q8H 08/18/18 08/18/18 08/13/18 History Heparin Sod,Porcine/0.9 % NaCl 5,000 units SUB-Q Q8H 08/18/18 08/18/18 Unknown History [Heparin 5,000 Unit/5 ml-Ns] Insulin Glargine,Hum.rec.anlog 40 unit SQ HS 08/18/18 08/18/1808/12/19 History [Virgen Reapen U-100] Lacosamide [Vimpat] 1 tab FEEDTUBE Q12HR 08/18/18 08/18/18 Unknown History Sucralfate [Carafate] 1 gm FEEDTUBE Q8H 08/18/18 08/18/18 08/13/18 History Tamsulosin 0.4 mg FEEDTUBE DAILY 08/18/18 08/18/18 Unknown History guaiFENesin 200 mg FEEDTUBE Q4H PRN 08/18/18 08/18/18 Unknown History Cefuroxime Axetil [Ceftin] 250 mg PO Q12H #100 ml 09/17/18 Unknown Rx ED Physical Exam - General General appearance: lethargic, obtunded - Head Head exam: Present: atraumatic, normocephalic - Eye Eye exam: Absent: scleral icterus, conjunctival injection - ENT ENT exam: Present: mucous membranes moist, other (drooling ) - Neck Neck exam: Present: other (tracheostomy in place) - Respiratory Respiratory exam: Present: rales, rhonchi. Absent: respiratory distress, wheezes, stridor, accessory muscle use, decreased breath sounds - Cardiovascular Cardiovascular Exam: Present: normal rhythm, tachycardia, normal heart sounds. Absent: rubs, gallop - GI/Abdominal GI/Abdominal exam: Present: soft. Absent: distended, tenderness, rebound - exam: Present: other (douglass catheter in place: collection bag contains sediment, purulent urine) - Extremities Exam Extremities exam: Present: pedal edema - Neurological Exam Neurological exam: Present: altered, other (comatose, lethargic nonverbal) - Psychiatric Psychiatric exam: Present: flat affect - Skin Skin exam: Present: warm ED Course Vital Signs 09/27/18 09/27/18 09/27/18 23:00 23:31 23:33 Temperature 100.2 F H Pulse Rate 101 H Respiratory 14 Rate Blood Pressure 126/61 Blood Pressure 126/61 [Left] O2 Sat by Pulse 100 100 Oximetry O2 Sat by Pulse 100 Oximetry [ Assessment] ED Medical Decision Making - Lab Data Result diagrams: 09/27/18 23:00 09/27/18 23:00 - Medical Decision Making Mr. Phelan has hx of anoxic encephalopathy after recent cardiac arrest. He returns to hospital with fever and hyperglycemia. Code sepsis initiated with IVF, IV abx. Labs notable for normal white blood cell count, persistent anemia. Blood gas reflects respiratory alkalosis, persistently elevated BUN normal GFR, persistently elevated troponin unchanged from previous value, hypoalbuminemia elevated AST ALT loss AP portable chest x-ray my interpretation left upper lobe infiltrate versus edema pattern Diagnosis 1. UTI, sepsis questionable pneumonia on chest radiograph 2. Hyperglycemia acute Critical care attestation.: If time is entered above; I have spent that time in minutes in the direct care of this critically ill patient, excluding procedure time. ED Disposition Clinical Impression: Sepsis, HCAP (healthcare-associated pneumonia), Urinary tract infection, Acute hyperglycemia, Chronic respiratory failure, History of tracheostomy Disposition: 09 OP ADMIT IP TO THIS HOSP Is pt being admited?: Yes Condition: Stable Instructions: Bacterial Pneumonia (ED)
[2018-09-27] MEDS ORDERED: MAXIPIME/NS 2 GM/100 ML 2 GM/100 ML BAG IV ONE (23:27)
[2018-09-27 23:30] LABS: Hemoglobin 7.4 gm/dl (11.8-15.2); Mean Corpuscular HGB Conc 34 % (32-34); Mean Corpuscular Volume 81 fl (84-94); Platelet Count 228 K/mm3 (140-440); Red Blood Count 2.71 M/mm3 (3.65-5.03); Red Cell Distribution Width 21.4 % (13.2-15.2)
[2018-09-27] MEDS: MAXIPIME/NS 2 GM/100 ML 2 GM/100 ML BAG IV SCH (23:30)
[2018-09-27 23:31] LABS: Basophils % (Auto) 0.4 % (0.0-1.8); Eosinophils # (Auto) 0.1 K/mm3 (0.0-0.4); Lymphocytes # (Auto) 1.4 K/mm3 (1.2-5.4); Monocytes # (Auto) 1.3 K/mm3 (0.0-0.8); Monocytes % (Auto) 13.8 % (0.0-7.3)
[2018-09-28 00:10] LABS: Alanine Aminotransferase 107 units/L (7-56); Albumin 1.9 g/dL (3.9-5); BUN/Creatinine Ratio 33; Blood Urea Nitrogen 40 mg/dL (9-20); Calcium 8.6 mg/dL (8.4-10.2); Hemolysis Index 10
--- NOTE | 2018-09-28 00:58 | XRay Report ---
PROCEDURE: Chest. TECHNIQUE: Portable AP view. HISTORY: Fever. COMPARISONS: Chest 09/14/2018. FINDINGS: The heart size is normal. There is calcification in the aortic arch. The lungs are grossly clear. The re are no definite pleural effusions. There is a tracheostomy tube in satisfactory position. The soft tissues and regional skeleton are unremarkable. IMPRESSION: No evidence of acute disease. This document is electronically signed by Jethro Reese MD., September 28 2018 12:56:13 AM ET
[2018-09-28] MEDS ORDERED: VANCOMYCIN PHARMACY TO DOSE IV SCH (01:00)
[2018-09-28] MEDS ORDERED: VANCOMYCIN 1,750 MG in NACL 0.9% 500 ML 500 ML IV ONE (01:15)
[2018-09-28 01:29] LABS: Bacteria,Urine 2+ /HPF (Negative); Bilirubin,Urine NEG (Negative); Blood,Urine SM (Negative); Color,Urine Yellow (Yellow); Mucus,Urine FEW /HPF; Urobilinogen,Urine < 2.0 mg/dL (<2.0)
[2018-09-28] MEDS ORDERED: HumuLIN R IV ONE (02:37)
[2018-09-28] MEDS ORDERED: D50W (25GM) Syringe IV PRN (03:11)
[2018-09-28] MEDS ORDERED: PROVENTIL IH PRN (03:14)
[2018-09-28] MEDS ORDERED: ZOFRAN IV PRN (03:17)
[2018-09-28] MEDS ORDERED: DULCOLAX PR PRN (03:34)
[2018-09-28] MEDS ORDERED: COLACE FEEDTUBE PRN (03:34)
[2018-09-28 03:35] LABS: Chol/HDL Ratio 2.94 %; HDL Cholesterol 19 mg/dL (40-59); LDL Cholesterol,Direct 25 mg/dL (50-130)
[2018-09-28] MEDS: HumuLIN R SUB-Q SCH ×5 (04:10→21:01)
[2018-09-28] MEDS ORDERED: HumuLIN R ONE (04:12)
--- NOTE | 2018-09-28 05:33 | History and Physical Report ---
CHIEF COMPLAINT: Elevated blood sugar. Other complaint includes fever. HISTORY OF PRESENTING ILLNESS: The patient is a 77-year-old male brought from the halfway after his sugar was noted to be high, running in the 400s. There is history of fever, but there is no history of nausea and vomiting. No history of chest pain or shortness of breath. The patient was recently discharged from this hospital about 10 days ago after spending 5 weeks following cardiac arrest and hypoxic encephalopathy. There is no reported history of chest pain, nausea or vomiting or diarrhea. PAST MEDICAL HISTORY: Pertinent for hypertension, cerebrovascular accident, diabetes mellitus, seizure disorder, muscle weakness, dysphagia, respiratory failure, cardiopulmonary arrest, metabolic encephalopathy, toxic encephalopathy, hyperlipidemia, benign prostatic hyperplasia, anemia. PAST SURGICAL HISTORY: Pertinent for tracheostomy and gastrostomy. FAMILY HISTORY: Noncontributory. SOCIAL HISTORY: The patient stays at the [facility], does not smoke, does not drink alcohol and does not use illicit drug. MEDICATIONS: The patient is on Tylenol per feeding tube every 6 hours, 650 mg for fever and headache. Also, the patient is on amantadine 100 mg per feeding tube daily and on amlodipine 5 mg per tube daily. The patient is also on vitamin C 500 mg per tube daily and aspirin 1 tablet per tube daily. The patient is also on Lipitor 40 mg per tube daily and benazepril 10 mg per tube daily as well as Dulcolax suppository 10 mg rectally daily. Also, the patient is on Colace 100 mg per feeding tube daily and on ferrous sulfate 7.5 mL by feeding tube daily. The patient is also on glycopyrrolate 2 mg per feeding tube every 8 hours and heparin 5000 units subcutaneous every 8 hours. The patient is also on insulin glargine 40 units subcutaneous at bedtime and on lacosamide or Vimpat per feeding tube every 12 hours, dose not clear. The patient is on Carafate 1 g per feeding tube every 8 hours and on tamsulosin 0.4 mg per tube daily as well as guaifenesin 200 mg per tube every 4 hours as needed for cough. The patient is also on Ceftin 250 mg per tube every 12 hours. ALLERGIES: There are no known drug allergies. REVIEW OF SYSTEMS: CONSTITUTIONAL: There is fever, but no chills, no diaphoresis. HEENT: There is no headache or sore throat. CARDIOVASCULAR SYSTEM: There is no chest pain or orthopnea. RESPIRATORY SYSTEM: There is no shortness of breath or cough. GASTROINTESTINAL SYSTEM: There is no nausea, no vomiting, no abdominal pain, diarrhea or constipation. NEUROLOGICAL SYSTEM: There is no numbness, no dizziness. No new altered mental status. MUSCULOSKELETAL SYSTEM: There is no joint pain or swelling. DERMATOLOGICAL SYSTEM: There is no skin rash or itching. GENITOURINARY SYSTEM: There is no dysuria, hematuria, or flank pain. Rest of system review is normal. PHYSICAL EXAMINATION: GENERAL: At the time of exam, the patient was found to be lethargic, which is chronic and not in acute distress. VITAL SIGNS: At the initial time of presentation, temperature of 100.2 degrees Fahrenheit, pulse of 101, respirations 14, blood [id number]/61, O2 sat of 100% via oxygen per tracheostomy. HEENT: Shows pupils to be sluggishly reactive to light which is chronic. NECK: Supple with no JVD or carotid bruit and the tracheostomy is in place in the anterior aspect of the neck. CARDIOVASCULAR SYSTEM: Shows normal first and second heart sounds with no gallops or murmur. RESPIRATORY SYSTEM: Shows good air entry on both sides of the lungs with no abnormal breath sounds. GASTROINTESTINAL SYSTEM: Shows abdomen to be full, soft, nontender, with no organomegaly or rigidity. NEUROLOGIC: No new focal neurological deficit. MUSCULOSKELETAL SYSTEM: Shows no joint swelling or tenderness. DERMATOLOGICAL SYSTEM: Shows no skin rash. GENITOURINARY SYSTEM: Shows no costovertebral angle tenderness. PERTINENT LABORATORY AND IMAGING STUDIES: The patient had chest x-ray done that shows no evidence of acute disease. The patient's lab shows CBC with normal white count, low hemoglobin of 7.4, and low hematocrit of 22 with low MCV of 81. The patient's CBC differential shows elevated monocyte count of 13.8%. The patient's arterial blood gas showed high pH of 7.52 with low pCO2 of 33, normal pO2 of 97, and normal O2 sat of 98% and this was done on FiO2 of 40. The patient's chemistry show elevated BUN of 40 with normal creatinine and normal estimated GFR of greater than 60. The patient's blood glucose was high with a value of 431. Lactic acid level was normal. The patient's liver transaminases show high AST of 78 and high ALT of 107. The patient's troponin level was elevated with a value of 0.40. The patient's urinalysis showed yellow cloudy urine with high urine wbc of 63, large urine leukocyte esterase, negative urine nitrite with 2+ bacteria and high urine rbc of 182. DIAGNOSES: 1. Sepsis. 2. Urinary tract infection. 3. Diabetes mellitus with hyperglycemia. 4. Elevated troponin level. 5. Anemia. PLAN OF CARE: 1. The patient will be admitted as inpatient to telemetry. 2. The patient will be on Accu-Chek q.4 hours followed by low-dose sliding scale using the regular insulin coverage. 3. The patient will have cardiac enzymes involving troponin, total CK, and CK-MB checked every 6 hours for 2 more levels. 4. The patient will continue IV cefepime 2 g every 12 hours started in the Emergency Room and also continue IV vancomycin started in the Emergency Room with pharmacy to dose. Also, the patient will be on IV Levaquin 750 mg daily for treatment of sepsis. 5. The patient will be on IV normal saline at 125 mL an hour, having received IV normal saline boluses for treatment of sepsis in the Emergency Room. 6. The patient will be on heparin 5000 units subcutaneous q.12 hours for DVT prophylaxis and will be on IV Zofran 4 mg every 8 hours for nausea and vomiting. 7. The patient will be on Tylenol 650 mg rectally every 4 hours for fever and headache and will have respiratory therapy consult for management of tracheostomy. 8. The patient will be on albuterol nebulizer 2.5 mg q.6 hours as needed for shortness of breath or wheezing. 9. The patient's home medications will be reconciled and started later. The patient will be fed with his usual tube feeding, and the patient will have a consult with the construction stonemason for determination of appropriate tube feeding. JOB# [id number] OCN/NTS
[2018-09-28] MEDS ORDERED: NON-FORMULARY (Atorvastatin Calcium [Lipitor] 40 MG) FEEDTUBE SCH (10:00)
[2018-09-28] MEDS ORDERED: ZESTRIL FEEDTUBE SCH (10:00)
[2018-09-28] MEDS ORDERED: FLOMAX PO SCH (10:00)
[2018-09-28] MEDS ORDERED: BABY ASPIRIN PO SCH (10:00)
--- NOTE | 2018-09-28 10:06 | Event Note ---
Date: 09/28/18 She was admitted this morning with hypoglycemia and sepsis Patient seen and examined medical records reviewed Objective the current management Closely monitor, consult cardiology if needed Assessment and plan; --Type 2 diabetes mellitus uncontrolled /Hyperglycemia Accu-Chek sliding scale coverage and ADA diet, longer acting insulin --Sepsis/possible UTI empiric antibiotics, follow cultures Supportive care --Anemia; closely monitor H&H and transfuse as needed --Elevated troponins; probably nonspecific Closely monitor, cardiology consult if needed --DVT prophylaxis; Lovenox --Chronic respiratory failure; status post tracheostomy Oxygen titrated to process more than 90% Full CODE STATUS Monitor closely and adjust the management as needed Plan of care is reviewed with the patient's nurse
[2018-09-28] MEDS: NORVASC FEEDTUBE SCH (10:55)
[2018-09-28] MEDS: ROBINUL FEEDTUBE SCH ×3 (10:55→21:13)
[2018-09-28] MEDS: MAXIPIME/NS 2 GM/100 ML 2 GM/100 ML BAG IV SCH ×2 (10:56→21:12)
[2018-09-28] MEDS: LEVAQUIN 750MG/150ML 750 MG/150 ML BAG IV SCH (10:56)
[2018-09-28] MEDS: HEPARIN SUB-Q SCH ×2 (10:56→21:13)
[2018-09-28] MEDS: VIMPAT PO SCH ×2 (10:57→21:13)
[2018-09-28] MEDS: VITAMIN C FEEDTUBE SCH (10:57)
[2018-09-28 13:12] LABS: Creatine Kinase MB 3.1 ng/mL (0.0-4.0)
[2018-09-28] MEDS: CARAFATE FEEDTUBE SCH ×3 (13:33→21:13)
[2018-09-28] MEDS ORDERED: SIMPLE SYRUP FEEDTUBE PRN ×2 (15:34)
[2018-09-28] MEDS ORDERED: PANCREAZE DR 10,500 UNIT FEEDTUBE PRN (15:34)
[2018-09-28] MEDS ORDERED: SODIUM BICARBONATE FEEDTUBE PRN (15:34)
[2018-09-28] MEDS: HumaLOG SUB-Q SCH (17:52)
[2018-09-28] MEDS: FERROUS SULFATE FEEDTUBE SCH (20:05)
[2018-09-28] MEDS: SYMMETREL FEEDTUBE SCH (20:05)
[2018-09-28] MEDS: VANCOMYCIN 1,250 MG in NACL 0.9% 250ML 250 ML IV SCH (21:12)
[2018-09-29] MEDS: LANTUS SUB-Q SCH ×2 (01:17→22:10)
[2018-09-29] MEDS: HumuLIN R SUB-Q SCH ×5 (01:18→21:45)
[2018-09-29] MEDS: ROBINUL FEEDTUBE SCH ×4 (04:49→21:40)
[2018-09-29] MEDS: CARAFATE FEEDTUBE SCH ×3 (04:50→21:40)
[2018-09-29] MEDS: HumaLOG SUB-Q SCH ×2 (08:11→11:35)
[2018-09-29] MEDS ORDERED: NON-FORMULARY (Benazepril Hcl [Lotensin] 10 MG) FEEDTUBE SCH (10:00)
[2018-09-29] MEDS: NORVASC FEEDTUBE SCH (11:28)
[2018-09-29] MEDS: VIMPAT PO SCH ×2 (11:28→22:05)
[2018-09-29] MEDS: VITAMIN C FEEDTUBE SCH (11:28)
[2018-09-29] MEDS: ZESTRIL FEEDTUBE SCH (11:29)
[2018-09-29] MEDS: FLOMAX PO SCH (11:30)
[2018-09-29] MEDS: BABY ASPIRIN FEEDTUBE SCH (11:30)
[2018-09-29] MEDS: HEPARIN SUB-Q SCH ×2 (11:30→22:05)
[2018-09-29] MEDS: FERROUS SULFATE FEEDTUBE SCH (11:32)
[2018-09-29] MEDS: SYMMETREL FEEDTUBE SCH (11:32)
[2018-09-29] MEDS: LEVAQUIN 750MG/150ML 750 MG/150 ML BAG IV SCH (11:32)
[2018-09-29] MEDS: MAXIPIME/NS 2 GM/100 ML 2 GM/100 ML BAG IV SCH ×2 (11:33→21:42)
[2018-09-29] MEDS: NACL 0.9% 1000 ML 1,000 ML IV SCH ×2 (12:18→21:42)
--- NOTE | 2018-09-29 17:13 | Progress Note ---
Assessment and Plan Assessment and plan: --Type 2 diabetes mellitus uncontrolled /Hyperglycemia Accu-Chek sliding scale coverage and ADA diet, longer acting insulin --Toxic metabolic encephalopathy; present on admission Multifactorial, neuro checks and supportive care --History of cardiac arrest in the past; anoxic encephalopathy Supportive care --Sepsis/possible UTI empiric antibiotics, follow cultures Supportive care --Anemia; closely monitor H&H and transfuse as needed --Elevated troponins; probably nonspecific Closely monitor, cardiology consult if needed --DVT prophylaxis; Lovenox --Chronic respiratory failure; status post tracheostomy Oxygen titrated to process more than 90% Full CODE STATUS Monitor closely and adjust the management as needed Plan of care is reviewed with the patient's nurse Possible discharge back to SNF tomorrow if stable Plan of care reviewed with the patient's nurse and patient's History Interval history: Patient seen and examined medical records reviewed No new events reported by the nursing staff Patient's blood sugars are reasonable level Patient's at the bedside Tracheostomy on T piece Noncommunicative Vital signs noted Hospitalist Physical - Constitutional Vitals: Temp Pulse Resp BP Pulse Ox 97.5 F L 61 18 129/58 99 09/29/18 07:53 09/29/18 13:00 09/29/18 07:53 09/29/18 11:29 09/29/18 15:17 General appearance: Present: no acute distress, well-nourished - EENT Eyes: Present: PERRL, EOM intact - Neck Neck: Present: supple, normal ROM - Respiratory Respiratory effort: normal Respiratory: bilateral: diminished, rhonchi, negative: rales, wheezing - Cardiovascular Rhythm: regular Heart Sounds: Present: S1 & S2 - Extremities Extremities: no ischemia Extremity abnormal: edema - Abdominal General gastrointestinal: soft, non-tender, non-distended, normal bowel sounds - Integumentary Integumentary: Present: clear, warm - Psychiatric Psychiatric: other (noncommunicative) - Neurologic Neurologic: other (noncommunicative) Results - Labs CBC & Chem 7: 09/27/18 23:00 09/27/18 23:00 Labs: Laboratory Last Values WBC 9.7 K/mm3 (4.5-11.0) 09/27/18 23:00 RBC 2.71 M/mm3 (3.65-5.03) L 09/27/18 23:00 Hgb 7.4 gm/dl (11.8-15.2) L 09/27/18 23:00 Hct 22.0 % (35.5-45.6) L 09/27/18 23:00 MCV 81 fl (84-94) L 09/27/18 23:00 MCH 27 pg (28-32) L 09/27/18 23:00 MCHC 34 % (32-34) 09/27/18 23:00 RDW 21.4 % (13.2-15.2) H 09/27/18 23:00 Plt Count 228 K/mm3 (140-440) 09/27/18 23:00 Lymph % (Auto) 15.0 % (13.4-35.0) 09/27/18 23:00 [place] % (Auto) 13.8 % (0.0-7.3) H 09/27/18 23:00 Eos % (Auto) 1.0 % (0.0-4.3) 09/27/18 23:00 Baso % (Auto) 0.4 % (0.0-1.8) 09/27/18 23:00 Lymph # 1.4 K/mm3 (1.2-5.4) 09/27/18 23:00 [place] # 1.3 K/mm3 (0.0-0.8) H 09/27/18 23:00 Eos # 0.1 K/mm3 (0.0-0.4) 09/27/18 23:00 Baso # 0.0 K/mm3 (0.0-0.1) 09/27/18 23:00 Seg Neutrophils % 69.8 % (40.0-70.0) 09/27/18 23:00 Seg Neutrophils # 6.7 K/mm3 (1.8-7.7) 09/27/18 23:00 POC ABG pH 7.525 (7.35-7.45) H 09/27/18 23:34 POC ABG pCO2 33.1 (35-45) L 09/27/18 23:34 POC ABG pO2 97 (80-105) 09/27/18 23:34 POC ABG HCO3 27.4 (22-26 mml/L) 09/27/18 23:34 POC ABG Total CO2 28 (23-27mmol/L) 09/27/18 23:34 POC ABG O2 Sat 98 09/27/18 23:34 POC ABG Base Excess 5 ((-2) - (+3)mmol/L) 09/27/18 23:34 40 % 09/27/18 23:34 Sodium 142 mmol/L (137-145) 09/27/18 23:00 Potassium 4.8 mmol/L (3.6-5.0) 09/27/18 23:00 Chloride 102.9 mmol/L (98-107) 09/27/18 23:00 Carbon Dioxide 26 mmol/L (22-30) 09/27/18 23:00 18 mmol/L 09/27/18 23:00 BUN 40 mg/dL (9-20) H 09/27/18 23:00 1.2 mg/dL (0.8-1.5) 09/27/18 23:00 Estimated GFR > 60 ml/min 09/27/18 23:00 33 % 09/27/18 23:00 Glucose 431 mg/dL (75-100) H 09/27/18 23:00 POC Glucose 126 (70-105) H 09/29/18 11:23 Lactic Acid 1.30 mmol/L (0.7-2.0) 09/28/18 01:45 Calcium 8.6 mg/dL (8.4-10.2) 09/27/18 23:00 0.20 mg/dL (0.1-1.2) 09/27/18 23:00 AST 78 units/L (5-40) H 09/27/18 23:00 ALT 107 units/L (7-56) H 09/27/18 23:00 178 units/L (35-129) H 09/27/18 23:00 301 units/L (55-170) H 09/28/18 12:11 CK-MB (CK-2) 3.1 ng/mL (0.0-4.0) 09/28/18 12:11 CK-MB (CK-2) Rel Index 1.0 (0-4) 09/28/18 12:11 0.294 ng/mL (0.00-0.029) H* D 09/28/18 12:11 6.8 g/dL (6.3-8.2) 09/27/18 23:00 1.9 g/dL (3.9-5) L 09/27/18 23:00 0.4 % 09/27/18 23:00 Triglycerides 61 mg/dL (2-149) 09/27/18 23:00 Cholesterol 56 mg/dL (50-199) 09/27/18 23:00 25 mg/dL (50-130) L 09/27/18 23:00 19 mg/dL (40-59) L 09/27/18 23:00 2.94 % 09/27/18 23:00 Yellow (Yellow) 09/28/18 01:05 Cloudy (Clear) 09/28/18 01:05 7.0 (5.0-7.0) 09/28/18 01:05 Ur Specific [place] 1.017 (1.003-1.030) 09/28/18 01:05 100 mg/dl mg/dL (Negative) 09/28/18 01:05 150 mg/dL (Negative) 09/28/18 01:05 Neg mg/dL (Negative) 09/28/18 01:05 Sm (Negative) 09/28/18 01:05 Neg (Negative) 09/28/18 01:05 Neg (Negative) 09/28/18 01:05 < 2.0 mg/dL (<2.0) 09/28/18 01:05 Ur Leukocyte Esterase Lg (Negative) 09/28/18 01:05 63.0 /HPF (0.0-6.0) H 09/28/18 01:05 182.0 /HPF (0.0-6.0) 09/28/18 01:05 U Epithel Cells (Auto) < 1.0 /HPF (0-13.0) 09/28/18 01:05 2+ /HPF (Negative) 09/28/18 01:05 Few /HPF 09/28/18 01:05 3+ /HPF 09/28/18 01:05 Active Medications - Current Medications Current Medications: Generic Name Dose Route Start Last Admin Trade Name Freq PRN Reason Stop Dose Admin Acetaminophen 650 mg 09/28/18 03:16 Tylenol RI Q4H PRN Fever >101 Albuterol 2.5 mg 09/28/18 03:14 Proventil IH Q6HRT PRN Shortness Of Breath Amantadine HCl 100 mg 09/28/18 10:00 09/29/18 11:32 Symmetrel FEEDTUBE 100 mg DAILY LENCHO Administration Amlodipine Besylate 5 mg 09/28/18 10:00 09/29/18 11:28 Norvasc FEEDTUBE Not Given DAILY LENCHO Lipase/Protease/Amylase 1 each 09/28/18 15:34 Pancreaze 10,500 Unit FEEDTUBE PRN PRN For Clogged Feeding Tube Ascorbic Acid 500 mg 09/28/18 10:00 09/29/18 11:28 Vitamin C FEEDTUBE 500 mg QDAY LENCHO Administration Aspirin 81 mg 09/29/18 10:00 09/29/18 11:30 Baby Aspirin FEEDTUBE 81 mg QDAY LENCHO Administration Atorvastatin Calcium 40 mg 09/28/18 22:00 09/28/18 21:13 Lipitor FEEDTUBE 40 mg QHS LENCHO Administration Bisacodyl 10 mg 09/28/18 03:34 Dulcolax RI QDAY PRN Constipation Dextrose 50 ml 09/28/18 03:11 D50w (25gm) Syringe IV PRN PRN Hypoglycemia Docusate Sodium 100 mg 09/28/18 03:34 Colace FEEDTUBE QDAY PRN Constipation Ferrous Sulfate 308 mg 09/28/18 10:00 09/29/18 11:32 Ferrous Sulfate FEEDTUBE 308 mg DAILY LENCHO Administration Glycopyrrolate 2 mg 09/28/18 06:00 09/29/18 16:09 Robinul FEEDTUBE 2 mg Q8H LENCHO Administration Heparin Sodium (Porcine) 5,000 unit 09/28/18 10:00 09/29/18 11:30 Heparin SUB-Q 5,000 unit Q12HR LENCHO Administration Cefepime HCl 2 gm in 100 mls @ 200 mls/hr 09/27/18 23:00 09/29/18 11:33 Maxipime/Ns 2 Gm/100 Ml IV 200 mls/hr Q12HR LENCHO Administration Protocol Vancomycin HCl 1,250 mg/ 275 mls @ 166.667 mls/hr 09/28/18 22:00 09/28/18 21:12 Sodium Chloride IV 166.667 mls/hr Q24H LENCHO Administration Levofloxacin/Dextrose 750 mg in 150 mls @ 100 mls/hr 09/28/18 10:00 09/29/18 11:32 Levaquin 750mg/150ml IV 100 mls/hr Q24HR LENCHO Administration Protocol Sodium Chloride 1,000 mls @ 125 mls/hr 09/28/18 04:00 09/29/18 12:18 Nacl 0.9% 1000 Ml IV 125 mls/hr DIRECT LENCHO Administration Insulin Glargine 40 units 09/28/18 22:00 09/29/18 01:17 Lantus SUB-Q Not Given QHS LENCHO Insulin Human Lispro 8 unit 09/28/18 16:30 09/29/18 11:35 Humalog SUB-Q Not Given [facility] Insulin Human Regular 0 units 09/28/18 04:00 09/29/18 11:38 Humulin R SUB-Q Not Given Q4H [facility] Protocol Lacosamide 100 mg 09/28/18 10:00 09/29/18 11:28 Vimpat PO 100 mg Q12HR LENCHO Administration Lisinopril 10 mg 09/29/18 10:00 09/29/18 11:29 Zestril FEEDTUBE Not Given QDAY LENCHO Ondansetron HCl 4 mg 09/28/18 03:17 Zofran IV Q8H PRN Nausea And Vomiting Simple Syrup 15 ml 09/28/18 15:34 09/29/18 04:50 Simple Syrup FEEDTUBE 15 ml PRN PRN Administration Hypoglycemia Simple Syrup 30 ml 09/28/18 15:34 Simple Syrup FEEDTUBE PRN PRN Hypoglycemia Sodium Bicarbonate 325 mg 09/28/18 15:34 Sodium Bicarbonate FEEDTUBE PRN PRN For Clogged Feeding Tube Sucralfate 1 gm 09/28/18 04:00 09/29/18 11:47 Carafate FEEDTUBE 1 gm Q8H LENCHO Administration Tamsulosin HCl 0.4 mg 09/29/18 10:00 09/29/18 11:30 Flomax PO 0.4 mg QDAY LENCHO Administration Nutrition/Malnutrition Assess - Dietary Evaluation Nutrition/Malnutrition Findings: Nutrition Notes Start: 09/28/18 15:13 Freq: Status: Active Protocol: Document 09/28/18 15:13 RM (Rec: 09/28/18 15:16 RM [id number]) Nutrition Notes Need for Assessment generated from: MD Order Initial or Follow up Assessment Current Diagnosis Diabetes,Sepsis,Hypertension, Stroke,Hyperlipidemia Other Pertinent Diagnosis Multiple wounds, Seizure disorder, Dysphagia, encephalopathy,UTI, PEG Current Diet No diet ordered Labs/Tests Reviewed Pertinent Medications Solu-Medrol,Propofol at 8.8 ml /hr (232 kcal) Height 5 ft 7 in Weight 81.8 kg [place] Body Weight (kg) 67.27 BMI 28.2 Subjective/Other Information Consulted for TF recommendation. Screened for malnutrition, skin risk, and difficulty chewing. Minor 14 points. Pt and pt relative in room at time of visit. Pt relative stated that pt receieved Glucerna at [place]. Burn Absent Trauma Absent Is patient on ventilator? No Is Patient Ambulatory and/or Out of Bed No REE-([facility]-confined to bed) 1344.234 Calculation Used for Recommendations [facility] Additional Notes Protein Needs: 98-123g (1.2-1. 5g/kg) Fluid Needs: 1 ml/kcal Nutrition Intervention Nutrition Support: Glucerna 1.2 at 65 ml/hr. Water flush of 100 mls q 4 hrs . Kcal 1,872 Protein (gm) 94 Fluid (mL) 1,256 Goal #1 TF tolerance Goal #2 Meet at least 75% of calorie and protein needs via TF Anticipated Discharge Needs: TF Follow-Up By: 09/30/18 Additional Comments Follow for new TF
[2018-09-29] MEDS: VANCOMYCIN 1,250 MG in NACL 0.9% 250ML 250 ML IV SCH (21:46)
[2018-09-30] MEDS: HumuLIN R SUB-Q SCH ×5 (00:26→20:49)
[2018-09-30] MEDS: CARAFATE FEEDTUBE SCH ×3 (04:25→20:49)
[2018-09-30] MEDS: ROBINUL FEEDTUBE SCH ×3 (05:14→22:24)
--- NOTE | 2018-09-30 10:35 | Progress Note ---
Assessment and Plan Assessment and plan: --Type 2 diabetes mellitus uncontrolled /Hyperglycemia blood sugars are well controlled, continue Accu-Chek sliding scale coverage and ADA diet, longer acting insulin --Toxic metabolic encephalopathy; present on admission Multifactorial, neuro checks and supportive care --History of cardiac arrest in the past; anoxic encephalopathy Supportive care --Sepsis/possible UTI empiric antibiotics, follow cultures Supportive care --Anemia; closely monitor H&H and transfuse as needed --Elevated troponins; probably nonspecific Closely monitor, cardiology consult if needed --DVT prophylaxis; Lovenox --Chronic respiratory failure; status post tracheostomy Oxygen titrated to process more than 90% Full CODE STATUS Monitor closely and adjust the management as needed Plan of care is reviewed with the patient's nurse Possible discharge back to SNF tomorrow if stable Plan of care reviewed with the patient's nurse and patient's History Interval history: Patient seen and examined in his room this morning medical records reviewed No new events reported by the nursing staff The patient remains unresponsive and noncommunicative Status post tracheostomy on T piece complaints of edema lower and upper extremities Hospitalist Physical - Constitutional Vitals: Temp Pulse Resp BP Pulse Ox 99.6 F 91 H 20 143/69 99 09/30/18 07:41 09/30/18 08:38 09/30/18 07:41 09/30/18 07:41 09/30/18 07:41 General appearance: Present: no acute distress, well-nourished, other (tracheostomy on T piece) - EENT Eyes: Present: PERRL, EOM intact - Neck Neck: Present: supple, normal ROM - Respiratory Respiratory effort: normal Respiratory: bilateral: diminished, rales, negative: rhonchi, wheezing - Cardiovascular Rhythm: regular Heart Sounds: Present: S1 & S2 - Extremities Extremities: no ischemia Extremity abnormal: edema (edema all 4 extremities) - Abdominal General gastrointestinal: soft, non-tender, non-distended, normal bowel sounds - Integumentary Integumentary: Present: clear, warm - Psychiatric Psychiatric: other (anoxic encephalopathy) - Neurologic Neurologic: other (anoxic encephalopathy) Results - Labs CBC & Chem 7: 09/27/18 23:00 09/27/18 23:00 Labs: Laboratory Last Values WBC 9.7 K/mm3 (4.5-11.0) 09/27/18 23:00 RBC 2.71 M/mm3 (3.65-5.03) L 09/27/18 23:00 Hgb 7.4 gm/dl (11.8-15.2) L 09/27/18 23:00 Hct 22.0 % (35.5-45.6) L 09/27/18 23:00 MCV 81 fl (84-94) L 09/27/18 23:00 MCH 27 pg (28-32) L 09/27/18 23:00 MCHC 34 % (32-34) 09/27/18 23:00 RDW 21.4 % (13.2-15.2) H 09/27/18 23:00 Plt Count 228 K/mm3 (140-440) 09/27/18 23:00 Lymph % (Auto) 15.0 % (13.4-35.0) 09/27/18 23:00 [place] % (Auto) 13.8 % (0.0-7.3) H 09/27/18 23:00 Eos % (Auto) 1.0 % (0.0-4.3) 09/27/18 23:00 Baso % (Auto) 0.4 % (0.0-1.8) 09/27/18 23:00 Lymph # 1.4 K/mm3 (1.2-5.4) 09/27/18 23:00 [place] # 1.3 K/mm3 (0.0-0.8) H 09/27/18 23:00 Eos # 0.1 K/mm3 (0.0-0.4) 09/27/18 23:00 Baso # 0.0 K/mm3 (0.0-0.1) 09/27/18 23:00 Seg Neutrophils % 69.8 % (40.0-70.0) 09/27/18 23:00 Seg Neutrophils # 6.7 K/mm3 (1.8-7.7) 09/27/18 23:00 POC ABG pH 7.525 (7.35-7.45) H 09/27/18 23:34 POC ABG pCO2 33.1 (35-45) L 09/27/18 23:34 POC ABG pO2 97 (80-105) 09/27/18 23:34 POC ABG HCO3 27.4 (22-26 mml/L) 09/27/18 23:34 POC ABG Total CO2 28 (23-27mmol/L) 09/27/18 23:34 POC ABG O2 Sat 98 09/27/18 23:34 POC ABG Base Excess 5 ((-2) - (+3)mmol/L) 09/27/18 23:34 40 % 09/27/18 23:34 Sodium 142 mmol/L (137-145) 09/27/18 23:00 Potassium 4.8 mmol/L (3.6-5.0) 09/27/18 23:00 Chloride 102.9 mmol/L (98-107) 09/27/18 23:00 Carbon Dioxide 26 mmol/L (22-30) 09/27/18 23:00 18 mmol/L 09/27/18 23:00 BUN 40 mg/dL (9-20) H 09/27/18 23:00 1.2 mg/dL (0.8-1.5) 09/27/18 23:00 Estimated GFR > 60 ml/min 09/27/18 23:00 33 % 09/27/18 23:00 Glucose 431 mg/dL (75-100) H 09/27/18 23:00 POC Glucose 133 (70-105) H 09/30/18 04:56 Lactic Acid 1.30 mmol/L (0.7-2.0) 09/28/18 01:45 Calcium 8.6 mg/dL (8.4-10.2) 09/27/18 23:00 0.20 mg/dL (0.1-1.2) 09/27/18 23:00 AST 78 units/L (5-40) H 09/27/18 23:00 ALT 107 units/L (7-56) H 09/27/18 23:00 178 units/L (35-129) H 09/27/18 23:00 301 units/L (55-170) H 09/28/18 12:11 CK-MB (CK-2) 3.1 ng/mL (0.0-4.0) 09/28/18 12:11 CK-MB (CK-2) Rel Index 1.0 (0-4) 09/28/18 12:11 0.294 ng/mL (0.00-0.029) H* D 07/01/19 12:11 6.8 g/dL (6.3-8.2) 09/27/18 23:00 1.9 g/dL (3.9-5) L 09/27/18 23:00 0.4 % 09/27/18 23:00 Triglycerides 61 mg/dL (2-149) 09/27/18 23:00 Cholesterol 56 mg/dL (50-199) 09/27/18 23:00 25 mg/dL (50-130) L 09/27/18 23:00 19 mg/dL (40-59) L 09/27/18 23:00 2.94 % 09/27/18 23:00 Yellow (Yellow) 09/28/18 01:05 Cloudy (Clear) 09/28/18 01:05 7.0 (5.0-7.0) 09/28/18 01:05 Ur Specific [place] 1.017 (1.003-1.030) 09/28/18 01:05 100 mg/dl mg/dL (Negative) 09/28/18 01:05 150 mg/dL (Negative) 09/28/18 01:05 Neg mg/dL (Negative) 09/28/18 01:05 Sm (Negative) 09/28/18 01:05 Neg (Negative) 09/28/18 01:05 Neg (Negative) 09/28/18 01:05 < 2.0 mg/dL (<2.0) 09/28/18 01:05 Ur Leukocyte Esterase Lg (Negative) 09/28/18 01:05 63.0 /HPF (0.0-6.0) H 09/28/18 01:05 182.0 /HPF (0.0-6.0) 09/28/18 01:05 U Epithel Cells (Auto) < 1.0 /HPF (0-13.0) 09/28/18 01:05 2+ /HPF (Negative) 09/28/18 01:05 Few /HPF 09/28/18 01:05 3+ /HPF 09/28/18 01:05 Active Medications - Current Medications Current Medications: Generic Name Dose Route Start Last Admin Trade Name Freq PRN Reason Stop Dose Admin Acetaminophen 650 mg 09/28/18 03:16 Tylenol CA Q4H PRN Fever >101 Albuterol 2.5 mg 09/28/18 03:14 Proventil IH Q6HRT PRN Shortness Of Breath Amantadine HCl 100 mg 09/28/18 10:00 09/29/18 11:32 Symmetrel FEEDTUBE 100 mg DAILY LENCHO Administration Amlodipine Besylate 5 mg 09/28/18 10:00 09/29/18 11:28 Norvasc FEEDTUBE Not Given DAILY LENCHO Lipase/Protease/Amylase 1 each 09/28/18 15:34 Pancreaze 10,500 Unit FEEDTUBE PRN PRN For Clogged Feeding Tube Ascorbic Acid 500 mg 09/28/18 10:00 09/29/18 11:28 Vitamin C FEEDTUBE 500 mg QDAY LENCHO Administration Aspirin 81 mg 09/29/18 10:00 09/29/18 11:30 Baby Aspirin FEEDTUBE 81 mg QDAY LENCHO Administration Atorvastatin Calcium 40 mg 09/28/18 22:00 09/29/18 22:05 Lipitor FEEDTUBE 40 mg QHS LENCHO Administration Bisacodyl 10 mg 09/28/18 03:34 Dulcolax CA QDAY PRN Constipation Dextrose 50 ml 09/28/18 03:11 D50w (25gm) Syringe IV PRN PRN Hypoglycemia Docusate Sodium 100 mg 09/28/18 03:34 Colace FEEDTUBE QDAY PRN Constipation Ferrous Sulfate 308 mg 09/28/18 10:00 09/29/18 11:32 Ferrous Sulfate FEEDTUBE 308 mg DAILY LENCHO Administration Glycopyrrolate 2 mg 09/28/18 06:00 09/30/18 05:14 Robinul FEEDTUBE 2 mg Q8H LENCHO Administration Heparin Sodium (Porcine) 5,000 unit 09/28/18 10:00 09/29/18 22:05 Heparin SUB-Q 5,000 unit Q12HR LENCHO Administration Cefepime HCl 2 gm in 100 mls @ 200 mls/hr 09/27/18 23:00 09/29/18 21:42 Maxipime/Ns 2 Gm/100 Ml IV 200 mls/hr Q12HR LENCHO Administration Protocol Vancomycin HCl 1,250 mg/ 275 mls @ 166.667 mls/hr 09/28/18 22:00 09/29/18 21:46 Sodium Chloride IV 166.667 mls/hr Q24H LENCHO Administration Levofloxacin/Dextrose 750 mg in 150 mls @ 100 mls/hr 09/28/18 10:00 09/29/18 11:32 Levaquin 750mg/150ml IV 100 mls/hr Q24HR LENCHO Administration Protocol Sodium Chloride 1,000 mls @ 125 mls/hr 09/28/18 04:00 09/29/18 21:42 Nacl 0.9% 1000 Ml IV 125 mls/hr DIRECT LENCHO Administration Insulin Glargine 40 units 09/28/18 22:00 09/29/18 22:10 Lantus SUB-Q Not Given QHS LENCHO Insulin Human Lispro 8 unit 09/28/18 16:30 09/29/18 11:35 Humalog SUB-Q Not Given AC [facility] Insulin Human Regular 0 units 09/28/18 04:00 09/30/18 04:00 Humulin R SUB-Q Not Given Q4H [facility] Protocol Lacosamide 100 mg 09/28/18 10:00 09/29/18 22:05 Vimpat PO 100 mg Q12HR LENCHO Administration Lisinopril 10 mg 09/29/18 10:00 09/29/18 11:29 Zestril FEEDTUBE Not Given QDAY [facility] Ondansetron HCl 4 mg 09/28/18 03:17 Zofran IV Q8H PRN Nausea And Vomiting Simple Syrup 15 ml 09/28/18 15:34 09/29/18 04:50 Simple Syrup FEEDTUBE 15 ml PRN PRN Administration Hypoglycemia Simple Syrup 30 ml 09/28/18 15:34 Simple Syrup FEEDTUBE PRN PRN Hypoglycemia Sodium Bicarbonate 325 mg 09/28/18 15:34 Sodium Bicarbonate FEEDTUBE PRN PRN For Clogged Feeding Tube Sucralfate 1 gm 09/28/18 04:00 09/30/18 04:25 Carafate FEEDTUBE 1 gm Q8H LENCHO Administration Tamsulosin HCl 0.4 mg 09/29/18 10:00 09/29/18 11:30 Flomax PO 0.4 mg QDAY LENCHO Administration Nutrition/Malnutrition Assess - Dietary Evaluation Nutrition/Malnutrition Findings: Nutrition Notes Start: 09/28/18 15:13 Freq: Status: Active Protocol: Document 09/28/18 15:13 RM (Rec: 09/28/18 15:16 RM [id number]) Nutrition Notes Need for Assessment generated from: MD Order Initial or Follow up Assessment Current Diagnosis Diabetes,Sepsis,Hypertension, Stroke,Hyperlipidemia Other Pertinent Diagnosis Multiple wounds, Seizure disorder, Dysphagia, encephalopathy,UTI, PEG Current Diet No diet ordered Labs/Tests Reviewed Pertinent Medications Solu-Medrol,Propofol at 8.8 ml /hr (232 kcal) Height 5 ft 7 in Weight 81.8 kg [place] Body Weight (kg) 67.27 BMI 28.2 Subjective/Other Information Consulted for TF recommendation. Screened for malnutrition, skin risk, and difficulty chewing. Minor 14 points. Pt and pt relative in room at time of visit. Pt relative stated that pt receieved Glucerna at [place]. Burn Absent Trauma Absent Is patient on ventilator? No Is Patient Ambulatory and/or Out of Bed No REE-([facility]-confined to bed) 1004.231 Calculation Used for Recommendations [facility] Additional Notes Protein Needs: 98-123g (1.2-1. 5g/kg) Fluid Needs: 1 ml/kcal Nutrition Intervention Nutrition Support: Glucerna 1.2 at 65 ml/hr. Water flush of 100 mls q 4 hrs . Kcal 1,872 Protein (gm) 94 Fluid (mL) 1,256 Goal #1 TF tolerance Goal #2 Meet at least 75% of calorie and protein needs via TF Anticipated Discharge Needs: TF Follow-Up By: 09/30/18 Additional Comments Follow for new TF
[2018-09-30] MEDS: LEVAQUIN 750MG/150ML 750 MG/150 ML BAG IV SCH (11:33)
[2018-09-30] MEDS: FERROUS SULFATE FEEDTUBE SCH (11:36)
[2018-09-30] MEDS: FLOMAX PO SCH (11:36)
[2018-09-30] MEDS: ZESTRIL FEEDTUBE SCH (11:37)
[2018-09-30] MEDS: BABY ASPIRIN FEEDTUBE SCH (11:37)
[2018-09-30] MEDS: VITAMIN C FEEDTUBE SCH (11:38)
[2018-09-30] MEDS: NORVASC FEEDTUBE SCH (11:39)
[2018-09-30] MEDS: MAXIPIME/NS 2 GM/100 ML 2 GM/100 ML BAG IV SCH ×2 (11:39→22:18)
[2018-09-30] MEDS: VIMPAT PO SCH ×2 (11:39→22:25)
[2018-09-30] MEDS: HEPARIN SUB-Q SCH ×2 (11:40→22:25)
[2018-09-30] MEDS: HumaLOG SUB-Q SCH ×2 (12:47→16:06)
[2018-09-30] MEDS ORDERED: LASIX IV NR (13:27)
[2018-09-30] MEDS: SYMMETREL FEEDTUBE SCH (19:07)
[2018-09-30] MEDS: LANTUS SUB-Q SCH ×2 (19:31→22:04)
[2018-09-30] MEDS: VANCOMYCIN 1,250 MG in NACL 0.9% 250ML 250 ML IV SCH (22:22)
[2018-10-01] MEDS: HumuLIN R SUB-Q SCH ×6 (01:17→20:36)
[2018-10-01] MEDS: ROBINUL FEEDTUBE SCH ×3 (05:13→21:30)
[2018-10-01] MEDS: CARAFATE FEEDTUBE SCH ×3 (05:13→21:30)
--- NOTE | 2018-10-01 08:36 | Progress Note ---
Assessment and Plan Assessment and plan: --Chronic respiratory failure; h/o tracheostomy on T piece Continue oxygen nebulizers supportive care --Generalized edema and fluid overload; IV diuretics Monitor input output --Type 2 diabetes mellitus uncontrolled /Hyperglycemia blood sugars are well controlled, continue Accu-Chek sliding scale coverage and tube feeding ,long acting insulin --Toxic metabolic encephalopathy; present on admission Multifactorial, neuro checks and supportive care --History of cardiac arrest in the past; anoxic encephalopathy Supportive care --Sepsis/possible UTI empiric antibiotics, follow cultures Supportive care --Anemia; closely monitor H&H and transfuse as needed --Elevated troponins; probably nonspecific Closely monitor, cardiology consult if needed --DVT prophylaxis; Lovenox Full CODE STATUS Discharge planning; DC and transfer back to SNF when medically stable Monitor closely and adjust the management as needed Plan of care is reviewed with the patient's and his nurse Possible discharge back to SNF in 1-2 days History Interval history: Patient seen and examined medical records reviewed Feels slightly better status post tracheostomy on T piece Blood sugars are reasonable levels Patient's at the bedside, no new events reported by the nursing staff Vital signs reviewed Hospitalist Physical - Constitutional Vitals: Temp Pulse Resp BP Pulse Ox 99.4 F 86 18 131/56 96 10/01/18 07:12 10/01/18 07:12 10/01/18 08:17 10/01/18 07:12 10/01/18 08:17 General appearance: Present: no acute distress, well-nourished, other (t racheostomy on T piece) - EENT Eyes: Present: PERRL, EOM intact - Neck Neck: Present: supple - Respiratory Respiratory effort: normal Respiratory: bilateral: diminished, rhonchi, negative: rales, wheezing - Cardiovascular Rhythm: regular Heart Sounds: Present: S1 & S2 - Extremities Extremities: no ischemia Extremity abnormal: edema (all 4 extremities) - Abdominal General gastrointestinal: soft, non-tender, non-distended, normal bowel sounds - Integumentary Integumentary: Present: clear, warm - Psychiatric Psychiatric: other (communicative) - Neurologic Neurologic: other (noncommunicative) Results - Labs CBC & Chem 7: 09/27/18 23:00 09/27/18 23:00 Labs: Laboratory Last Values WBC 9.7 K/mm3 (4.5-11.0) 09/27/18 23:00 RBC 2.71 M/mm3 (3.65-5.03) L 09/27/18 23:00 Hgb 7.4 gm/dl (11.8-15.2) L 09/27/18 23:00 Hct 22.0 % (35.5-45.6) L 09/27/18 23:00 MCV 81 fl (84-94) L 09/27/18 23:00 MCH 27 pg (28-32) L 09/27/18 23:00 MCHC 34 % (32-34) 09/27/18 23:00 RDW 21.4 % (13.2-15.2) H 09/27/18 23:00 Plt Count 228 K/mm3 (140-440) 09/27/18 23:00 Lymph % (Auto) 15.0 % (13.4-35.0) 09/27/18 23:00 [place] % (Auto) 13.8 % (0.0-7.3) H 09/27/18 23:00 Eos % (Auto) 1.0 % (0.0-4.3) 09/27/18 23:00 Baso % (Auto) 0.4 % (0.0-1.8) 09/27/18 23:00 Lymph # 1.4 K/mm3 (1.2-5.4) 09/27/18 23:00 [place] # 1.3 K/mm3 (0.0-0.8) H 09/27/18 23:00 Eos # 0.1 K/mm3 (0.0-0.4) 09/27/18 23:00 Baso # 0.0 K/mm3 (0.0-0.1) 09/27/18 23:00 Seg Neutrophils % 69.8 % (40.0-70.0) 09/27/18 23:00 Seg Neutrophils # 6.7 K/mm3 (1.8-7.7) 09/27/18 23:00 POC ABG pH 7.525 (7.35-7.45) H 09/27/18 23:34 POC ABG pCO2 33.1 (35-45) L 09/27/18 23:34 POC ABG pO2 97 (80-105) 09/27/18 23:34 POC ABG HCO3 27.4 (22-26 mml/L) 09/27/18 23:34 POC ABG Total CO2 28 (23-27mmol/L) 09/27/18 23:34 POC ABG O2 Sat 98 09/27/18 23:34 POC ABG Base Excess 5 ((-2) - (+3)mmol/L) 09/27/18 23:34 40 % 09/27/18 23:34 Sodium 142 mmol/L (137-145) 09/27/18 23:00 Potassium 4.8 mmol/L (3.6-5.0) 09/27/18 23:00 Chloride 102.9 mmol/L (98-107) 09/27/18 23:00 Carbon Dioxide 26 mmol/L (22-30) 09/27/18 23:00 18 mmol/L 09/27/18 23:00 BUN 40 mg/dL (9-20) H 09/27/18 23:00 1.2 mg/dL (0.8-1.5) 09/27/18 23:00 Estimated GFR > 60 ml/min 09/27/18 23:00 33 % 09/27/18 23:00 Glucose 431 mg/dL (75-100) H 09/27/18 23:00 POC Glucose 182 (70-105) H 10/01/18 04:05 Lactic Acid 1.30 mmol/L (0.7-2.0) 09/28/18 01:45 Calcium 8.6 mg/dL (8.4-10.2) 09/27/18 23:00 0.20 mg/dL (0.1-1.2) 09/27/18 23:00 AST 78 units/L (5-40) H 09/27/18 23:00 ALT 107 units/L (7-56) H 09/27/18 23:00 178 units/L (35-129) H 09/27/18 23:00 301 units/L (55-170) H 09/28/18 12:11 CK-MB (CK-2) 3.1 ng/mL (0.0-4.0) 09/28/18 12:11 CK-MB (CK-2) Rel Index 1.0 (0-4) 09/28/18 12:11 0.294 ng/mL (0.00-0.029) H* D 09/28/18 12:11 6.8 g/dL (6.3-8.2) 09/27/18 23:00 1.9 g/dL (3.9-5) L 09/27/18 23:00 0.4 % 09/27/18 23:00 Triglycerides 61 mg/dL (2-149) 09/27/18 23:00 Cholesterol 56 mg/dL (50-199) 09/27/18 23:00 25 mg/dL (50-130) L 09/27/18 23:00 19 mg/dL (40-59) L 09/27/18 23:00 2.94 % 09/27/18 23:00 Yellow (Yellow) 09/28/18 01:05 Cloudy (Clear) 09/28/18 01:05 7.0 (5.0-7.0) 09/28/18 01:05 Ur Specific [place] 1.017 (1.003-1.030) 09/28/18 01:05 100 mg/dl mg/dL (Negative) 09/28/18 01:05 150 mg/dL (Negative) 09/28/18 01:05 Neg mg/dL (Negative) 09/28/18 01:05 Sm (Negative) 09/28/18 01:05 Neg (Negative) 09/28/18 01:05 Neg (Negative) 09/28/18 01:05 < 2.0 mg/dL (<2.0) 09/28/18 01:05 Ur Leukocyte Esterase Lg (Negative) 09/28/18 01:05 63.0 /HPF (0.0-6.0) H 09/28/18 01:05 182.0 /HPF (0.0-6.0) 09/28/18 01:05 U Epithel Cells (Auto) < 1.0 /HPF (0-13.0) 09/28/18 01:05 2+ /HPF (Negative) 09/28/18 01:05 Few /HPF 09/28/18 01:05 3+ /HPF 09/28/18 01:05 Active Medications - Current Medications Current Medications: Generic Name Dose Route Start Last Admin Trade Name Freq PRN Reason Stop Dose Admin Acetaminophen 650 mg 09/28/18 03:16 Tylenol [place] Q4H PRN Fever >101 Albuterol 2.5 mg 09/28/18 03:14 Proventil IH Q6HRT PRN Shortness Of Breath Amantadine HCl 100 mg 09/28/18 10:00 09/30/18 19:07 Symmetrel FEEDTUBE 100 mg DAILY LENCHO Administration Amlodipine Besylate 5 mg 09/28/18 10:00 09/30/18 11:39 Norvasc FEEDTUBE 5 mg DAILY LENCHO Administration Lipase/Protease/Amylase 1 each 09/28/18 15:34 Pancreaze 10,500 Unit FEEDTUBE PRN PRN For Clogged Feeding Tube Ascorbic Acid 500 mg 09/28/18 10:00 09/30/18 11:38 Vitamin C FEEDTUBE 500 mg QDAY LENCHO Administration Aspirin 81 mg 09/29/18 10:00 09/30/18 11:37 Baby Aspirin FEEDTUBE 81 mg QDAY LENCHO Administration Atorvastatin Calcium 40 mg 09/28/18 22:00 09/30/18 22:25 Lipitor FEEDTUBE 40 mg QHS LENCHO Administration Bisacodyl 10 mg 09/28/18 03:34 Dulcolax [place] QDAY PRN Constipation Dextrose 50 ml 09/28/18 03:11 D50w (25gm) Syringe IV PRN PRN Hypoglycemia Docusate Sodium 100 mg 09/28/18 03:34 Colace FEEDTUBE QDAY PRN Constipation Ferrous Sulfate 308 mg 09/28/18 10:00 09/30/18 11:36 Ferrous Sulfate FEEDTUBE 308 mg DAILY LENCHO Administration Furosemide 40 mg 10/01/18 10:00 Lasix IV QDAY LENCHO Glycopyrrolate 2 mg 09/28/18 06:00 10/01/18 05:13 Robinul FEEDTUBE 2 mg Q8H LENCHO Administration Heparin Sodium (Porcine) 5,000 unit 09/28/18 10:00 09/30/18 22:25 Heparin SUB-Q 5,000 unit Q12HR LENCHO Administration Cefepime HCl 2 gm in 100 mls @ 200 mls/hr 09/27/18 23:00 09/30/18 22:18 Maxipime/Ns 2 Gm/100 Ml IV 200 mls/hr Q12HR LENCHO Administration Protocol Vancomycin HCl 1,250 mg/ 275 mls @ 166.667 mls/hr 09/28/18 22:00 09/30/18 22:22 Sodium Chloride IV 166.667 mls/hr Q24H LENCHO Administration Levofloxacin/Dextrose 750 mg in 150 mls @ 100 mls/hr 09/28/18 10:00 09/30/18 11:33 Levaquin 750mg/150ml IV 100 mls/hr Q24HR LENCHO Administration Protocol Insulin Glargine 40 units 09/28/18 22:00 09/30/18 22:04 Lantus SUB-Q Not Given QHS LENCHO Insulin Human Lispro 8 unit 09/28/18 16:30 09/30/18 16:06 Humalog SUB-Q 8 unit AC LENCHO Administration Insulin Human Regular 0 units 10/01/18 12:00 Humulin R SUB-Q Q6HR [facility] Protocol Lacosamide 100 mg 09/28/18 10:00 09/30/18 22:25 Vimpat PO 100 mg Q12HR LENCHO Administration Lisinopril 10 mg 09/29/18 10:00 09/30/18 11:37 Zestril FEEDTUBE 10 mg QDAY LENCHO Administration Ondansetron HCl 4 mg 09/28/18 03:17 Zofran IV Q8H PRN Nausea And Vomiting Simple Syrup 15 ml 09/28/18 15:34 09/29/18 04:50 Simple Syrup FEEDTUBE 15 ml PRN PRN Administration Hypoglycemia Simple Syrup 30 ml 09/28/18 15:34 Simple Syrup FEEDTUBE PRN PRN Hypoglycemia Sodium Bicarbonate 325 mg 09/28/18 15:34 Sodium Bicarbonate FEEDTUBE PRN PRN For Clogged Feeding Tube Sucralfate 1 gm 09/28/18 04:00 10/01/18 05:13 Carafate FEEDTUBE 1 gm Q8H LENCHO Administration Tamsulosin HCl 0.4 mg 09/29/18 10:00 09/30/18 11:36 Flomax PO 0.4 mg QDAY LENCHO Administration Nutrition/Malnutrition Assess - Dietary Evaluation Nutrition/Malnutrition Findings: Nutrition Notes Start: 09/28/18 15:13 Freq: Status: Active Protocol: Document 09/30/18 16:07 RM (Rec: 09/30/18 16:10 RM [id number]) Nutrition Notes Initial or Follow up Reassessment Current Diagnosis Diabetes,Sepsis,Hypertension, Stroke,Hyperlipidemia Other Pertinent Diagnosis Multiple wounds, Seizure disorder, Dysphagia, encephalopathy,UTI, PEG Current Diet Glucerna 1.2 at 65 ml/hr Labs/Tests Reviewed Pertinent Medications Solu-Medrol,Propofol at 8.8 ml /hr (232 kcal) Height 5 ft 7 in Weight 90.3 kg [place] Body Weight (kg) 67.27 BMI 31.1 Weight change and time frame current wt obtained from bedscale Subjective/Other Information Observed Glucerna infusing at goal rate. Per nurse pt is tolerating TF. Percent of energy/protein needs met: 98%/96% Burn Absent Trauma Absent #1 Nutrition Diagnosis Inadequate oral intake Diagnosis Progress(for reassessment Continues documentation) Is patient on ventilator? No Is Patient Ambulatory and/or Out of Bed No REE-([facility]-confined to bed) [phone] Calculation Used for Recommendations [facility] Additional Notes Protein Needs: 98-123g (1.2-1. 5g/kg) Fluid Needs: 1 ml/kcal Nutrition Intervention Nutrition Support: Glucerna 1.2 at 65 ml/hr. Water flush of 100 mls q 4 hrs . Kcal 1,872 Protein (gm) 94 Fluid (mL) 1,256 Goal #1 TF tolerance Goal #2 Continue to meet at least 75% of calorie and protein needs via TF Anticipated Discharge Needs: TF Follow-Up By: 10/07/18 Additional Comments Follow for TF tolerance
[2018-10-01] MEDS: VIMPAT PO SCH ×2 (10:32→21:30)
[2018-10-01] MEDS: FLOMAX PO SCH (10:32)
[2018-10-01] MEDS: VITAMIN C FEEDTUBE SCH (10:32)
[2018-10-01] MEDS: NORVASC FEEDTUBE SCH (10:32)
[2018-10-01] MEDS: ZESTRIL FEEDTUBE SCH (10:32)
[2018-10-01] MEDS: MAXIPIME/NS 2 GM/100 ML 2 GM/100 ML BAG IV SCH ×2 (10:33→21:31)
[2018-10-01] MEDS: LASIX IV SCH (10:33)
[2018-10-01] MEDS: HEPARIN SUB-Q SCH ×2 (10:33→21:30)
[2018-10-01] MEDS: SYMMETREL FEEDTUBE SCH (10:33)
[2018-10-01] MEDS: LEVAQUIN 750MG/150ML 750 MG/150 ML BAG IV SCH (10:33)
[2018-10-01] MEDS: BABY ASPIRIN FEEDTUBE SCH (10:33)
[2018-10-01] MEDS: FERROUS SULFATE FEEDTUBE SCH (10:36)
[2018-10-01] MEDS: HumaLOG SUB-Q SCH ×4 (10:36→18:13)
[2018-10-01] MEDS ORDERED: APRESOLINE IV PRN (15:51)
[2018-10-01] MEDS: PROVENTIL IH SCH (21:00)
[2018-10-01] MEDS: VANCOMYCIN 1,250 MG in NACL 0.9% 250ML 250 ML IV SCH (21:31)
[2018-10-01] MEDS: LANTUS SUB-Q SCH (23:51)
[2018-10-02] MEDS: HumuLIN R SUB-Q SCH ×4 (01:14→18:45)
[2018-10-02] MEDS: PROVENTIL IH SCH ×4 (03:12→21:12)
[2018-10-02] MEDS: ROBINUL FEEDTUBE SCH ×2 (05:46→13:54)
[2018-10-02] MEDS: CARAFATE FEEDTUBE SCH ×2 (05:46→12:22)
[2018-10-02] MEDS: HumaLOG SUB-Q SCH ×3 (08:55→16:56)
[2018-10-02] MEDS: MAXIPIME/NS 2 GM/100 ML 2 GM/100 ML BAG IV SCH ×2 (09:01→21:18)
[2018-10-02] MEDS: FERROUS SULFATE FEEDTUBE SCH (09:01)
[2018-10-02] MEDS: SYMMETREL FEEDTUBE SCH (09:02)
[2018-10-02] MEDS: LEVAQUIN 750MG/150ML 750 MG/150 ML BAG IV SCH (09:02)
[2018-10-02] MEDS: LASIX IV SCH ×2 (09:02→18:43)
[2018-10-02] MEDS: NORVASC FEEDTUBE SCH (09:02)
[2018-10-02] MEDS: HEPARIN SUB-Q SCH ×2 (09:02→21:52)
[2018-10-02] MEDS: BABY ASPIRIN FEEDTUBE SCH (09:03)
[2018-10-02] MEDS: VITAMIN C FEEDTUBE SCH (09:03)
[2018-10-02] MEDS: VIMPAT PO SCH (09:03)
[2018-10-02] MEDS: FLOMAX PO SCH (09:03)
--- NOTE | 2018-10-02 09:26 | Progress Note ---
Assessment and Plan Assessment and plan: --Chronic respiratory failure; h/o tracheostomy on T piece Continue oxygen nebulizers supportive care Chest x-ray, patient has copious secretions --Generalized edema and fluid overload; IV diuretics Monitor input output --Type 2 diabetes mellitus uncontrolled /Hyperglycemia blood sugars are well controlled, continue Accu-Chek sliding scale coverage and tube feeding ,long acting insulin --Toxic metabolic encephalopathy; present on admission Multifactorial, neuro checks and supportive care --History of cardiac arrest in the past; anoxic encephalopathy Supportive care --Sepsis/possible UTI empiric antibiotics, and cultures positive for Yeast. Start Diflucan for total 10 days --Anemia; closely monitor H&H and transfuse as needed --Elevated troponins; probably nonspecific Closely monitor, cardiology consult if needed --DVT prophylaxis; Lovenox Full CODE STATUS Follow-up chest x-ray, possible discharge in 1-2 days if stable Discharge planning; DC and transfer back to SNF when medically stable Monitor closely and adjust the management as needed Plan of care is reviewed with the patient's and his nurse Possible discharge back to SNF in 1-2 days History Interval history: Patient seen and examined medical records reviewed Patient has copious secretions from the tracheostomy tube Patient is noncommunicative, not in acute distress Vital signs noted Hospitalist Physical - Constitutional Vitals: Temp Pulse Resp BP Pulse Ox 99.5 F 95 H 18 140/53 94 10/02/18 08:01 10/02/18 08:01 10/02/18 08:01 10/02/18 08:01 10/02/18 08:01 General appearance: Present: no acute distress, well-nourished, other (tracheostomy on T piece) - EENT Eyes: Present: PERRL, EOM intact - Neck Neck: Present: supple, normal ROM - Respiratory Respiratory effort: normal Respiratory: bilateral: diminished, rhonchi, negative: rales, wheezing - Cardiovascular Rhythm: regular Heart Sounds: Present: S1 & S2 - Extremities Extremity abnormal: edema - Abdominal General gastrointestinal: soft, non-tender, non-distended, normal bowel sounds, other (PEG tube in place) - Integumentary Integumentary: Present: clear, warm - Psychiatric Psychiatric: appropriate mood/affect, cooperative - Neurologic Neurologic: CNII-XII intact, moves all extremities Results - Labs CBC & Chem 7: 10/02/18 08:45 07/05/19 08:45 Labs: Laboratory Last Values WBC 9.7 K/mm3 (4.5-11.0) 09/27/18 23:00 RBC 2.71 M/mm3 (3.65-5.03) L 09/27/18 23:00 Hgb 7.4 gm/dl (11.8-15.2) L 09/27/18 23:00 Hct 22.0 % (35.5-45.6) L 09/27/18 23:00 MCV 81 fl (84-94) L 09/27/18 23:00 MCH 27 pg (28-32) L 09/27/18 23:00 MCHC 34 % (32-34) 09/27/18 23:00 RDW 21.4 % (13.2-15.2) H 09/27/18 23:00 Plt Count 228 K/mm3 (140-440) 09/27/18 23:00 Lymph % (Auto) 15.0 % (13.4-35.0) 09/27/18 23:00 [place] % (Auto) 13.8 % (0.0-7.3) H 09/27/18 23:00 Eos % (Auto) 1.0 % (0.0-4.3) 09/27/18 23:00 Baso % (Auto) 0.4 % (0.0-1.8) 09/27/18 23:00 Lymph # 1.4 K/mm3 (1.2-5.4) 09/27/18 23:00 [place] # 1.3 K/mm3 (0.0-0.8) H 09/27/18 23:00 Eos # 0.1 K/mm3 (0.0-0.4) 09/27/18 23:00 Baso # 0.0 K/mm3 (0.0-0.1) 09/27/18 23:00 Seg Neutrophils % 69.8 % (40.0-70.0) 09/27/18 23:00 Seg Neutrophils # 6.7 K/mm3 (1.8-7.7) 09/27/18 23:00 POC ABG pH 7.525 (7.35-7.45) H 09/27/18 23:34 POC ABG pCO2 33.1 (35-45) L 09/27/18 23:34 POC ABG pO2 97 (80-105) 09/27/18 23:34 POC ABG HCO3 27.4 (22-26 mml/L) 09/27/18 23:34 POC ABG Total CO2 28 (23-27mmol/L) 09/27/18 23:34 POC ABG O2 Sat 98 09/27/18 23:34 POC ABG Base Excess 5 ((-2) - (+3)mmol/L) 09/27/18 23:34 40 % 09/27/18 23:34 Sodium 142 mmol/L (137-145) 09/27/18 23:00 Potassium 4.8 mmol/L (3.6-5.0) 09/27/18 23:00 Chloride 102.9 mmol/L (98-107) 09/27/18 23:00 Carbon Dioxide 26 mmol/L (22-30) 09/27/18 23:00 18 mmol/L 09/27/18 23:00 BUN 40 mg/dL (9-20) H 09/27/18 23:00 1.2 mg/dL (0.8-1.5) 09/27/18 23:00 Estimated GFR > 60 ml/min 09/27/18 23:00 33 % 09/27/18 23:00 Glucose 431 mg/dL (75-100) H 09/27/18 23:00 POC Glucose 226 (70-105) H 10/02/18 06:25 Lactic Acid 1.30 mmol/L (0.7-2.0) 09/28/18 01:45 Calcium 8.6 mg/dL (8.4-10.2) 09/27/18 23:00 0.20 mg/dL (0.1-1.2) 09/27/18 23:00 AST 78 units/L (5-40) H 09/27/18 23:00 ALT 107 units/L (7-56) H 09/27/18 23:00 178 units/L (35-129) H 09/27/18 23:00 301 units/L (55-170) H 09/28/18 12:11 CK-MB (CK-2) 3.1 ng/mL (0.0-4.0) 09/28/18 12:11 CK-MB (CK-2) Rel Index 1.0 (0-4) 09/28/18 12:11 0.294 ng/mL (0.00-0.029) H* D 09/28/18 12:11 6.8 g/dL (6.3-8.2) 09/27/18 23:00 1.9 g/dL (3.9-5) L 09/27/18 23:00 0.4 % 09/27/18 23:00 Triglycerides 61 mg/dL (2-149) 09/27/18 23:00 Cholesterol 56 mg/dL (50-199) 09/27/18 23:00 25 mg/dL (50-130) L 09/27/18 23:00 19 mg/dL (40-59) L 09/27/18 23:00 2.94 % 09/27/18 23:00 Yellow (Yellow) 09/28/18 01:05 Cloudy (Clear) 09/28/18 01:05 7.0 (5.0-7.0) 09/28/18 01:05 Ur Specific [place] 1.017 (1.003-1.030) 09/28/18 01:05 100 mg/dl mg/dL (Negative) 09/28/18 01:05 150 mg/dL (Negative) 09/28/18 01:05 Neg mg/dL (Negative) 09/28/18 01:05 Sm (Negative) 09/28/18 01:05 Neg (Negative) 09/28/18 01:05 Neg (Negative) 09/28/18 01:05 < 2.0 mg/dL (<2.0) 09/28/18 01:05 Ur Leukocyte Esterase Lg (Negative) 09/28/18 01:05 63.0 /HPF (0.0-6.0) H 09/28/18 01:05 182.0 /HPF (0.0-6.0) 09/28/18 01:05 U Epithel Cells (Auto) < 1.0 /HPF (0-13.0) 09/28/18 01:05 2+ /HPF (Negative) 09/28/18 01:05 Few /HPF 09/28/18 01:05 3+ /HPF 09/28/18 01:05 Active Medications - Current Medications Current Medications: Generic Name Dose Route Start Last Admin Trade Name Freq PRN Reason Stop Dose Admin Acetaminophen 650 mg 09/28/18 03:16 Tylenol [place] Q4H PRN Fever >101 Albuterol 2.5 mg 09/28/18 03:14 Proventil IH Q6HRT PRN Shortness Of Breath Albuterol 2.5 mg 10/01/18 20:00 10/02/18 07:20 Proventil IH 2.5 mg Q6HRT LENCHO Administration Amantadine HCl 100 mg 09/28/18 10:00 10/02/18 09:02 Symmetrel FEEDTUBE 100 mg DAILY LENCHO Administration Amlodipine Besylate 5 mg 09/28/18 10:00 10/02/18 09:02 Norvasc FEEDTUBE 5 mg DAILY LENCHO Administration Lipase/Protease/Amylase 1 each 09/28/18 15:34 Pancreazgenia [place] 10,500 Unit FEEDTUBE PRN PRN For Clogged Feeding Tube Ascorbic Acid 500 mg 09/28/18 10:00 10/02/18 09:03 Vitamin C FEEDTUBE 500 mg QDAY LENCHO Administration Aspirin 81 mg 09/29/18 10:00 10/02/18 09:03 Baby Aspirin FEEDTUBE 81 mg QDAY LENCHO Administration Atorvastatin Calcium 40 mg 09/28/18 22:00 10/01/18 21:30 Lipitor FEEDTUBE 40 mg QHS LENCHO Administration Bisacodyl 10 mg 09/28/18 03:34 Dulcolax [place] QDAY PRN Constipation Dextrose 50 ml 09/28/18 03:11 10/01/18 18:14 D50w (25gm) Syringe IV 50 ml PRN PRN Administration Hypoglycemia Docusate Sodium 100 mg 09/28/18 03:34 Colace FEEDTUBE QDAY PRN Constipation Ferrous Sulfate 308 mg 09/28/18 10:00 10/02/18 09:01 Ferrous Sulfate FEEDTUBE 308 mg DAILY LENCHO Administration Furosemide 40 mg 10/01/18 10:00 10/02/18 09:02 Lasix IV 40 mg QDAY LENCHO Administration Glycopyrrolate 2 mg 09/28/18 06:00 10/02/18 05:46 Robinul FEEDTUBE 2 mg Q8H LENCHO Administration Heparin Sodium (Porcine) 5,000 unit 09/28/18 10:00 10/02/18 09:02 Heparin SUB-Q 5,000 unit Q12HR LENCHO Administration Hydralazine HCl 10 mg 10/01/18 15:51 10/02/18 05:45 Apresoline IV 10 mg Q4HR PRN Administration Hypertension Cefepime HCl 2 gm in 100 mls @ 200 mls/hr 09/27/18 23:00 10/02/18 09:01 Maxipime/Ns 2 Gm/100 Ml IV 200 mls/hr Q12HR LENCHO Administration Protocol Vancomycin HCl 1,250 mg/ 275 mls @ 166.667 mls/hr 09/28/18 22:00 10/01/18 21:31 Sodium Chloride IV 166.667 mls/hr Q24H LENCHO Administration Levofloxacin/Dextrose 750 mg in 150 mls @ 100 mls/hr 09/28/18 10:00 10/02/18 09:02 Levaquin 750mg/150ml IV 100 mls/hr Q24HR LENCHO Administration Protocol Insulin Glargine 40 units 09/28/18 22:00 10/01/18 23:51 Lantus SUB-Q Not Given QHS LENCHO Insulin Human Lispro 8 unit 09/28/18 16:30 10/02/18 08:55 Humalog SUB-Q 8 unit AC LENCHO Administration Insulin Human Regular 0 units 10/01/18 12:00 10/02/18 06:24 Humulin R SUB-Q 3 units Q6HR [facility] Administration Protocol Lacosamide 100 mg 09/28/18 10:00 10/02/18 09:03 Vimpat PO 100 mg Q12HR LENCHO Administration Lisinopril 10 mg 09/29/18 10:00 10/01/18 10:32 Zestril FEEDTUBE 10 mg QDAY LENCHO Administration Ondansetron HCl 4 mg 09/28/18 03:17 Zofran IV Q8H PRN Nausea And Vomiting Simple Syrup 15 ml 09/28/18 15:34 09/29/18 04:50 Simple Syrup FEEDTUBE 15 ml PRN PRN Administration Hypoglycemia Simple Syrup 30 ml 09/28/18 15:34 Simple Syrup FEEDTUBE PRN PRN Hypoglycemia Sodium Bicarbonate 325 mg 09/28/18 15:34 Sodium Bicarbonate FEEDTUBE PRN PRN For Clogged Feeding Tube Sucralfate 1 gm 09/28/18 04:00 07/05/19 05:46 Carafate FEEDTUBE 1 gm Q8H LENCHO Administration Tamsulosin HCl 0.4 mg 09/29/18 10:00 10/02/18 09:03 Flomax PO 0.4 mg QDAY LENCHO Administration Nutrition/Malnutrition Assess - Dietary Evaluation Nutrition/Malnutrition Findings: Nutrition Notes Start: 09/28/18 15:13 Freq: Status: Active Protocol: Document 09/30/18 16:07 RM (Rec: 09/30/18 16:10 RM [id number]) Nutrition Notes Initial or Follow up Reassessment Current Diagnosis Diabetes,Sepsis,Hypertension, Stroke,Hyperlipidemia Other Pertinent Diagnosis Multiple wounds, Seizure disorder, Dysphagia, encephalopathy,UTI, PEG Current Diet Glucerna 1.2 at 65 ml/hr Labs/Tests Reviewed Pertinent Medications Solu-Medrol,Propofol at 8.8 ml /hr (232 kcal) Height 5 ft 7 in Weight 90.3 kg [place] Body Weight (kg) 67.27 BMI 31.1 Weight change and time frame [facility] Subjective/Other Information Observed Glucerna infusing at goal rate. Per nurse pt is tolerating TF. Percent of energy/protein needs met: 98%/96% Burn Absent Trauma Absent #1 Nutrition Diagnosis Inadequate oral intake Diagnosis Progress(for reassessment Continues documentation) Is patient on ventilator? No Is Patient Ambulatory and/or Out of Bed No REE-([facility]-confined to bed) [phone] Calculation Used for Recommendations [facility] Additional Notes Protein Needs: 98-123g (1.2-1. 5g/kg) Fluid Needs: 1 ml/kcal Nutrition Intervention Nutrition Support: Glucerna 1.2 at 65 ml/hr. Water flush of 100 mls q 4 hrs . Kcal 1,872 Protein (gm) 94 Fluid (mL) 1,256 Goal #1 TF tolerance Goal #2 Continue to meet at least 75% of calorie and protein needs via TF Anticipated Discharge Needs: TF Follow-Up By: 10/07/18 Additional Comments Follow for TF tolerance
[2018-10-02 09:51] LABS: Basophils # (Auto) 0.1 K/mm3 (0.0-0.1); Basophils % (Auto) 0.8 % (0.0-1.8); Eosinophils # (Auto) 0.4 K/mm3 (0.0-0.4); Eosinophils % (Auto) 3.7 % (0.0-4.3); Hematocrit 21.2 % (35.5-45.6); Lymphocytes # (Auto) 1.4 K/mm3 (1.2-5.4); Lymphocytes % (Auto) 13.9 % (13.4-35.0); Mean Corpuscular HGB Conc 33 % (32-34); Mean Corpuscular Volume 80 fl (84-94); Monocytes % (Auto) 9.7 % (0.0-7.3); Platelet Count 225 K/mm3 (140-440); Red Blood Count 2.65 M/mm3 (3.65-5.03)
[2018-10-02 10:21] LABS: BUN/Creatinine Ratio 29; Blood Urea Nitrogen 29 mg/dL (9-20); Calcium 7.9 mg/dL (8.4-10.2); Hemolysis Index 11
[2018-10-02] MEDS: ZESTRIL FEEDTUBE SCH (10:59)
--- NOTE | 2018-10-02 11:07 | XRay Report ---
CHEST 1 VIEW INDICATION: shortness of breath/. COMPARISON: 09/27/2018 FINDINGS: Support devices: A tracheostomy appears in good position Heart: Within normal limits. Lungs/Pleura: Mild pulmonary venous congestion is suspected. Mild airspace opacity has developed in t he right upper lobe which could represent an early infiltrate which is new since the previous exam. N o pleural effusion or pneumothorax is identified. Additional findings: None. IMPRESSION: 1. Mild pulmonary venous congestion. Question new right upper lobe infiltrate versus focal pulmonary edema. Signer Name: Faraz Resendiz Jr, MD Signed: 10/02/2018 11:02 AM Workstation Name: [id number]
[2018-10-02] MEDS: VANCOMYCIN 1,250 MG in NACL 0.9% 250ML 250 ML IV SCH (21:20)
[2018-10-02] MEDS ORDERED: REGLAN IV PRN (23:57)
[2018-10-03] MEDS: TYLENOL PR PRN (00:06)
[2018-10-03 00:42] LABS: Basophils # (Auto) 0.1 K/mm3 (0.0-0.1); Basophils % (Auto) 0.5 % (0.0-1.8); Eosinophils # (Auto) 0.3 K/mm3 (0.0-0.4); Eosinophils % (Auto) 2.4 % (0.0-4.3); Hemoglobin 7.6 gm/dl (11.8-15.2); Lymphocytes # (Auto) 1.2 K/mm3 (1.2-5.4); Lymphocytes % (Auto) 11.6 % (13.4-35.0); Mean Corpuscular HGB Conc 33 % (32-34); Mean Corpuscular Volume 80 fl (84-94); Monocytes # (Auto) 0.8 K/mm3 (0.0-0.8); Monocytes % (Auto) 7.5 % (0.0-7.3); Platelet Count 274 K/mm3 (140-440); Red Blood Count 2.87 M/mm3 (3.65-5.03)
[2018-10-03 00:44] LABS: Red Cell Distribution Width 20.5 % (13.2-15.2)
[2018-10-03] MEDS: CARAFATE FEEDTUBE SCH ×4 (01:12→22:00)
[2018-10-03] MEDS: LANTUS SUB-Q SCH ×2 (01:12→21:51)
[2018-10-03] MEDS: VIMPAT PO SCH ×3 (01:14→21:49)
[2018-10-03] MEDS: ROBINUL FEEDTUBE SCH ×4 (01:14→21:49)
[2018-10-03] MEDS: HumuLIN R SUB-Q SCH ×4 (01:18→18:01)
[2018-10-03] MEDS: PROVENTIL IH SCH ×4 (02:06→20:08)
[2018-10-03] MEDS ORDERED: DUONEB *Not for PRN Use IH ONE (02:11)
--- NOTE | 2018-10-03 03:14 | XRay Report ---
CHEST 1 VIEW INDICATION: Aspiration. COMPARISON: One day prior. FINDINGS: Support devices: Unchanged. Heart: Stable. Lungs/Pleura: Patchy bilateral pulmonary opacities, greatest in the right upper lung, unchanged. No s ignificant effusion, no pneumothorax. IMPRESSION: 1. No significant change. Signer Name: Leonel Elias MD Signed: 10/03/2018 3:10 AM Workstation Name: [email or web address]
[2018-10-03] MEDS: LASIX IV SCH ×3 (06:14→17:59)
[2018-10-03] MEDS: MAXIPIME/NS 2 GM/100 ML 2 GM/100 ML BAG IV SCH ×2 (09:48→21:49)
[2018-10-03] MEDS: FERROUS SULFATE FEEDTUBE SCH (09:53)
[2018-10-03] MEDS: VITAMIN C FEEDTUBE SCH (09:54)
[2018-10-03] MEDS: FLOMAX PO SCH (09:54)
[2018-10-03] MEDS: HEPARIN SUB-Q SCH ×2 (09:54→21:50)
[2018-10-03] MEDS: BABY ASPIRIN FEEDTUBE SCH (09:54)
[2018-10-03] MEDS: NORVASC FEEDTUBE SCH (09:56)
[2018-10-03] MEDS: ZESTRIL FEEDTUBE SCH (09:57)
--- NOTE | 2018-10-03 13:13 | Consultation ---
History of Present Illness Consult date: 10/03/18 Requesting physician: BHAVESH MCCAIN Reason for consult: other (Aspiration Pneumonia) History of present illness: PULMONARY/CCM CONSULT NOTE (Full dictation # [id number]) Please see dictated notes for full details Medications and Allergies Allergies Allergy/AdvReac Type Severity Reaction Status Date / Time No Known Allergies Allergy Verified 08/12/18 21:47 Home Medications Medication Instructions Recorded Confirmed Last Taken Type Amantadine [Symmetrel] 100 mg FEEDTUBE DAILY 08/18/18 09/28/18 08/13/18 History Amlodipine Besylate [Norvasc] 5 mg FEEDTUBE DAILY 08/18/18 09/28/18 08/13/18 History Ascorbic Acid [Vitamin C Oral Liq] 500 mg FEEDTUBE QDAY 08/18/18 09/28/18 08/13/18 History Atorvastatin Calcium [Lipitor] 40 mg FEEDTUBE DAILY 08/18/18 09/28/18 08/13/18 History Bisacodyl [Dulcolax suppos] 10 mg OR QDAY PRN 08/18/18 09/28/18 Unknown History Docusate Sodium [Colace ORAL LIQ] 100 mg FEEDTUBE QDAY PRN 08/18/18 09/28/18 Unknown History Ferrous Sulfate [Ferrous Sulfate 7.5 ml FEEDTUBE DAILY 08/18/18 09/28/18 08/13/18 History 220 MG/5 ML] Glycopyrrolate [Robinul] 2 mg FEEDTUBE Q8H 08/18/18 09/28/18 08/13/18 History Insulin Glargine,Hum.rec.anlog 40 unit SQ HS 08/18/18 09/28/18 08/12/18 History [Basaglar Kwikpen U-100] Lacosamide [Vimpat] 1 tab FEEDTUBE Q12HR 08/18/18 09/28/18 Unknown History Cefuroxime Axetil [Ceftin] 250 mg PO Q12H #100 ml 09/17/18 09/28/18 Unknown Rx Acetaminophen 650 mg FEEDTUBE Q12H PRN 09/28/18 09/28/18 Unknown History Aspirin [Aspirin BABY CHEW TAB] 81 mg FEEDTUBE QDAY 09/28/18 09/28/18 Unknown History Benazepril HCl [Lotensin] 10 mg FEEDTUBE QDAY 09/28/18 09/28/18 Unknown History Lispro Insulin [HumaLOG] See Protocol SQ ACHS 09/28/18 09/28/18 Unknown History Tamsulosin [Flomax] 0.4 mg FEEDTUBE QDAY 09/28/18 09/28/18 Unknown History guaiFENesin [Mucus-Chest 200 mg FEEDTUBE Q4H PRN 09/28/18 09/28/18 Unknown History Congestion] Active Meds: Active Medications Acetaminophen (Tylenol) 650 mg OR Q4H PRN PRN Reason: Fever >101 Last Admin: 10/03/18 00:06 Dose: 650 mg Documented by: Albuterol (Proventil) 2.5 mg IH Q6HRT PRN PRN Reason: Shortness Of Breath Albuterol (Proventil) 2.5 mg IH Q6HRT [facility] Last Admin: 10/03/18 12:59 Dose: 2.5 mg Documented by: Amantadine HCl (Symmetrel) 100 mg FEEDTUBE DAILY [facility] Last Admin: 10/02/18 09:02 Dose: 100 mg Documented by: Amlodipine Besylate (Norvasc) 5 mg FEEDTUBE DAILY [facility] Last Admin: 10/03/18 09:56 Dose: Not Given Documented by: Lipase/Protease/Amylase (Juana Dr 10,500 Unit) 1 each FEEDTUBE PRN PRN PRN Reason: For Clogged Feeding Tube Ascorbic Acid (Vitamin C) 500 mg FEEDTUBE QDAY [facility] Last Admin: 10/03/18 09:54 Dose: 500 mg Documented by: Aspirin (Baby Aspirin) 81 mg FEEDTUBE QDAY [facility] Last Admin: 10/03/18 09:54 Dose: 81 mg Documented by: Atorvastatin Calcium (Lipitor) 40 mg FEEDTUBE QHS [facility] Last Admin: 10/03/18 01:13 Dose: Not Given Documented by: Bisacodyl (Dulcolax) 10 mg OR QDAY PRN PRN Reason: Constipation Dextrose (D50w (25gm) Syringe) 50 ml IV PRN PRN PRN Reason: Hypoglycemia Last Admin: 10/01/18 18:14 Dose: 50 ml Documented by: Docusate Sodium (Colace) 100 mg FEEDTUBE QDAY PRN PRN Reason: Constipation Ferrous Sulfate (Ferrous Sulfate) 308 mg FEEDTUBE DAILY [facility] Last Admin: 10/03/18 09:53 Dose: 308 mg Documented by: Furosemide (Lasix) 40 mg IV 0600,1800 [facility] Last Admin: 10/03/18 06:26 Dose: Not Given Documented by: Glycopyrrolate (Robinul) 2 mg FEEDTUBE Q8H [facility] Last Admin: 10/03/18 09:54 Dose: 2 mg Documented by: Heparin Sodium (Porcine) (Heparin) 5,000 unit SUB-Q Q12HR [facility] Last Admin: 10/03/18 09:54 Dose: 5,000 unit Documented by: Hydralazine HCl (Apresoline) 10 mg IV Q4HR PRN PRN Reason: Hypertension Last Admin: 10/02/18 05:45 Dose: 10 mg Documented by: Cefepime HCl (Maxipime/Ns 2 Gm/100 Ml) 2 gm in 100 mls @ 200 mls/hr IV Q12HR [facility]; Protocol Last Admin: 10/03/18 09:48 Dose: 200 mls/hr Documented by: Vancomycin HCl 1,250 mg/ (Sodium Chloride) 275 mls @ 166.667 mls/hr IV Q24H [facility] Last Admin: 10/02/18 21:20 Dose: 166.667 mls/hr Documented by: Insulin Glargine (Lantus) 40 units SUB-Q QHS [facility] Last Admin: 10/03/18 01:12 Dose: Not Given Documented by: Insulin Human Lispro (Humalog) 8 unit SUB-Q AC [facility] Last Admin: 10/02/18 16:56 Dose: 8 unit Documented by: Insulin Human Regular (Humulin R) 0 units SUB-Q Q6HR [facility]; Protocol Last Admin: 10/03/18 06:10 Dose: 3 units Documented by: Lacosamide (Vimpat) 100 mg PO Q12HR [facility] Last Admin: 10/03/18 09:54 Dose: 100 mg Documented by: Lisinopril (Zestril) 10 mg FEEDTUBE QDAY [facility] Last Admin: 10/03/18 09:57 Dose: Not Given Documented by: Metoclopramide HCl (Reglan) 10 mg IV Q6H PRN PRN Reason: Nausea And Vomiting Last Admin: 10/03/18 00:59 Dose: 10 mg Documented by: Ondansetron HCl (Zofran) 4 mg IV Q8H PRN PRN Reason: Nausea And Vomiting Last Admin: 10/02/18 21:47 Dose: 4 mg Documented by: Simple Syrup (Simple Syrup) 15 ml FEEDTUBE PRN PRN PRN Reason: Hypoglycemia Last Admin: 09/29/18 04:50 Dose: 15 ml Documented by: Simple Syrup (Simple Syrup) 30 ml FEEDTUBE PRN PRN PRN Reason: Hypoglycemia Sodium Bicarbonate (Sodium Bicarbonate) 325 mg FEEDTUBE PRN PRN PRN Reason: For Clogged Feeding Tube Sucralfate (Carafate) 1 gm FEEDTUBE Q8H [facility] Last Admin: 10/03/18 05:20 Dose: Not Given Documented by: Tamsulosin HCl (Flomax) 0.4 mg PO QDAY [facility] Last Admin: 10/03/18 09:54 Dose: 0.4 mg Documented by: Physical Examination Vital signs: Vital Signs Temp Pulse Resp BP Pulse Ox 100.2 F H 101 H 14 126/61 100 09/27/18 23:00 09/27/18 23:00 09/27/18 23:00 09/27/18 23:00 09/27/18 23:00 Results - Laboratory Findings CBC and BMP: 10/03/18 00:29 10/02/18 08:45 ABG POC ABG pH 7.525 (7.35-7.45) H 10/03/18 04:37 POC ABG pO2 63 (80-105) L 10/03/18 04:37 POC ABG HCO3 23.4 (22-26 mml/L) 10/03/18 04:37 POC ABG Total CO2 24 (23-27mmol/L) 10/03/18 04:37 POC ABG O2 Sat 94 10/03/18 04:37 Abnormal lab findings: Abnormal Labs 09/27/18 09/27/18 09/27/18 22:54 23:00 23:00 RBC 2.71 L Hgb 7.4 L Hct 22.0 L MCV 81 L MCH 27 L RDW 21.4 H Lymph % (Auto) [place] % (Auto) 13.[address] [place] # 1.3 H Seg Neutrophils % Seg Neutrophils # POC ABG pH POC ABG pCO2 POC ABG pO2 BUN 40 H Glucose 431 H POC Glucose 456 H Calcium AST 78 H ALT 107 H Alkaline Phosphatase 178 H Total Creatine Kinase Troponin T 0.407 H* Albumin 1.9 L LDL Cholesterol Direct 25 L HDL Cholesterol 19 L Urine WBC (Auto) 09/27/18 09/28/18 09/28/18 23:34 01:05 02:43 RBC Hgb Hct MCV MCH RDW Lymph % (Auto) [place] % (Auto) [place] # Seg Neutrophils % Seg Neutrophils # POC ABG pH 7.525 H POC ABG pCO2 33.1 L POC ABG pO2 BUN Glucose POC Glucose 497 H Calcium AST ALT Alkaline Phosphatase Total Creatine Kinase Troponin T Albumin LDL Cholesterol Direct HDL Cholesterol Urine WBC (Auto) 63.0 H 09/28/18 09/28/18 09/28/18 04:11 07:13 11:47 RBC Hgb Hct MCV MCH RDW Lymph % (Auto) [place] % (Auto) [place] # Seg Neutrophils % Seg Neutrophils # POC ABG pH POC ABG pCO2 POC ABG pO2 BUN Glucose POC Glucose 362 H 392 H 244 H Calcium AST ALT Alkaline Phosphatase Total Creatine Kinase Troponin T Albumin LDL Cholesterol Direct HDL Cholesterol Urine WBC (Auto) 09/28/18 09/28/18 09/29/18 12:11 16:32 00:18 RBC Hgb Hct MCV MCH RDW Lymph % (Auto) [place] % (Auto) [place] # Seg Neutrophils % Seg Neutrophils # POC ABG pH POC ABG pCO2 POC ABG pO2 BUN Glucose POC Glucose 159 H 118 H Calcium AST ALT Alkaline Phosphatase Total Creatine Kinase 301 H Troponin T 0.294 H* D Albumin LDL Cholesterol Direct HDL Cholesterol Urine WBC (Auto) 09/29/18 09/29/18 09/29/18 04:28 11:23 18:58 RBC Hgb Hct MCV MCH RDW Lymph % (Auto) [place] % (Auto) [place] # Seg Neutrophils % Seg Neutrophils # POC ABG pH POC ABG pCO2 POC ABG pO2 BUN Glucose POC Glucose 67 L 126 H 167 H Calcium AST ALT Alkaline Phosphatase Total Creatine Kinase Troponin T Albumin LDL Cholesterol Direct HDL Cholesterol Urine WBC (Auto) 09/29/18 09/29/18 09/30/18 20:51 23:41 04:56 RBC Hgb Hct MCV MCH RDW Lymph % (Auto) [place] % (Auto) [place] # Seg Neutrophils % Seg Neutrophils # POC ABG pH POC ABG pCO2 POC ABG pO2 BUN Glucose POC Glucose 182 H 170 H 133 H Calcium AST ALT Alkaline Phosphatase Total Creatine Kinase Troponin T Albumin LDL Cholesterol Direct HDL Cholesterol Urine WBC (Auto) 09/30/18 09/30/18 09/30/18 12:37 16:25 20:35 RBC Hgb Hct MCV MCH RDW Lymph % (Auto) [place] % (Auto) [place] # Seg Neutrophils % Seg Neutrophils # POC ABG pH POC ABG pCO2 POC ABG pO2 BUN Glucose POC Glucose 182 H 185 H 227 H Calcium AST ALT Alkaline Phosphatase Total Creatine Kinase Troponin T Albumin LDL Cholesterol Direct HDL Cholesterol Urine WBC (Auto) 09/30/18 10/01/18 10/01/18 23:56 04:05 13:22 RBC Hgb Hct MCV MCH RDW Lymph % (Auto) [place] % (Auto) [place] # Seg Neutrophils % Seg Neutrophils # POC ABG pH POC ABG pCO2 POC ABG pO2 BUN Glucose POC Glucose 226 H 182 H 122 H Calcium AST ALT Alkaline Phosphatase Total Creatine Kinase Troponin T Albumin LDL Cholesterol Direct HDL Cholesterol Urine WBC (Auto) 10/01/18 10/01/18 10/01/18 17:58 18:49 23:42 RBC Hgb Hct MCV MCH RDW Lymph % (Auto) [place] % (Auto) [place] # Seg Neutrophils % Seg Neutrophils # POC ABG pH POC ABG pCO2 POC ABG pO2 BUN Glucose POC Glucose 62 L 140 H 172 H Calcium AST ALT Alkaline Phosphatase Total Creatine Kinase Troponin T Albumin LDL Cholesterol Direct HDL Cholesterol Urine WBC (Auto) 10/02/18 10/02/18 10/02/18 06:25 08:45 08:45 RBC 2.65 L Hgb 7.0 L Hct 21.2 L MCV 80 L MCH 26 L RDW 21.0 H Lymph % (Auto) [place] % (Auto) 9.[address] [place] # 1.0 H Seg Neutrophils % 71.9 H Seg Neutrophils # POC ABG pH POC ABG pCO2 POC ABG pO2 BUN 29 H Glucose 229 H POC Glucose 226 H Calcium 7.9 L AST ALT Alkaline Phosphatase Total Creatine Kinase Troponin T Albumin LDL Cholesterol Direct HDL Cholesterol Urine WBC (Auto) 10/02/18 10/02/18 10/02/18 12:06 17:42 21:02 RBC Hgb Hct MCV MCH RDW Lymph % (Auto) [place] % (Auto) [place] # Seg Neutrophils % Seg Neutrophils # POC ABG pH POC ABG pCO2 POC ABG pO2 BUN Glucose POC Glucose 217 H 216 H 116 H Calcium AST ALT Alkaline Phosphatase Total Creatine Kinase Troponin T Albumin LDL Cholesterol Direct HDL Cholesterol Urine WBC (Auto) 10/03/18 10/03/18 10/03/18 00:29 00:49 04:37 RBC 2.87 L Hgb 7.6 L Hct 23.0 L MCV 80 L MCH 26 L RDW 20.5 H Lymph % (Auto) 11.[address] [place] % (Auto) 7.[address] [place] # Seg Neutrophils % 78.0 H Seg Neutrophils # 8.4 H POC ABG pH 7.525 H POC ABG pCO2 POC ABG pO2 63 L BUN Glucose POC Glucose 117 H Calcium AST ALT Alkaline Phosphatase Total Creatine Kinase Troponin T Albumin LDL Cholesterol Direct HDL Cholesterol Urine WBC (Auto) 10/03/18 10/03/18 05:49 12:20 RBC Hgb Hct MCV MCH RDW Lymph % (Auto) [facility] % (Auto) [place] # Seg Neutrophils % Seg Neutrophils # POC ABG pH POC ABG pCO2 POC ABG pO2 BUN Glucose POC Glucose 218 H 238 H Calcium AST ALT Alkaline Phosphatase Total Creatine Kinase Troponin T Albumin LDL Cholesterol Direct HDL Cholesterol Urine WBC (Auto)
[2018-10-03] MEDS: HumaLOG SUB-Q SCH ×2 (15:45→15:48)
[2018-10-03] MEDS: PEPCID PO SCH (16:16)
--- NOTE | 2018-10-03 17:14 | Progress Note ---
Assessment and Plan Assessment and plan: --Aspiration pneumonia; patient is already on cefepime and vancomycin Status post Levaquin, aspiration precautions, PEG feeds, Supportive care, follow-up chest x-ray tomorrow, pulmonary consult Please head end of the bed --Chronic respiratory failure; h/o tracheostomy on T piece Continue oxygen nebulizers supportive care Chest x-ray, patient has copious secretions --Generalized edema and fluid overload; IV diuretics Monitor input output --Type 2 diabetes mellitus uncontrolled /Hyperglycemia blood sugars are well controlled, continue Accu-Chek sliding scale coverage and tube feeding ,long acting insulin --Toxic metabolic encephalopathy; present on admission Multifactorial, neuro checks and supportive care --History of cardiac arrest in the past; anoxic encephalopathy Supportive care --Sepsis/possible UTI empiric antibiotics, and cultures positive for Yeast. Start Diflucan for total 10 days --Anemia; closely monitor H&H and transfuse as needed --Elevated troponins; probably nonspecific Closely monitor, cardiology consult if needed --DVT prophylaxis; Lovenox Full CODE STATUS Follow-up chest x-ray, Discharge planning; DC and transfer back to SNF when medically stable Monitor closely and adjust the management as needed Plan of care is reviewed with the patient's and his nurse Possible discharge back to SNF in 1-2 days History Interval history: Patient seen and examined this morning medical records reviewed Last night events noted, patient had aspiration of feeds through the tracheostomy tube Chest x-ray consistent with a right-sided pneumonia and possible aspiration pneumonia Patient is already on IV antibiotics Hold tube feeding for few outbursts Consults pulmonology Patient is noncommunicative, in mild distress Vital signs reviewed Hospitalist Physical - Constitutional Vitals: Temp Pulse Resp BP Pulse Ox 98.0 F 100 H 20 103/45 97 10/03/18 07:22 10/03/18 13:00 10/03/18 12:59 10/03/18 07:22 10/03/18 10:00 General appearance: Present: no acute distress, well-nourished, other (tracheostomy on T piece) - EENT Eyes: Present: PERRL, EOM intact - Neck Neck: Present: supple, normal ROM - Respiratory Respiratory effort: normal Respiratory: bilateral: diminished, rhonchi, negative: rales, wheezing - Cardiovascular Rhythm: regular Heart Sounds: Present: S1 & S2 (tachycardia tachycardia) - Extremities Extremities: no ischemia Extremity abnormal: edema (generalized anasarca, slightly improved) - Abdominal General gastrointestinal: soft, non-tender, non-distended, normal bowel sounds, other (Se in place PEG tub) - Integumentary Integumentary: Present: clear, warm - Psychiatric Psychiatric: other ( unresponsive) - Neurologic Neurologic: other (unresponsive) Results - Labs CBC & Chem 7: 10/03/18 00:29 10/02/18 08:45 Labs: Laboratory Last Values WBC 10.7 K/mm3 (4.5-11.0) 10/03/18 00:29 RBC 2.87 M/mm3 (3.65-5.03) L 10/03/18 00:29 Hgb 7.6 gm/dl (11.8-15.2) L 10/03/18 00:29 Hct 23.0 % (35.5-45.6) L 10/03/18 00:29 MCV 80 fl (84-94) L 10/03/18 00:29 MCH 26 pg (28-32) L 10/03/18 00:29 MCHC 33 % (32-34) 10/03/18 00:29 RDW 20.5 % (13.2-15.2) H 10/03/18 00:29 Plt Count 274 K/mm3 (140-440) 10/03/18 00:29 Lymph % (Auto) 11.6 % (13.4-35.0) L 10/03/18 00:29 [place] % (Auto) 7.5 % (0.0-7.3) H 10/03/18 00:29 Eos % (Auto) 2.4 % (0.0-4.3) 10/03/18 00:29 Baso % (Auto) 0.5 % (0.0-1.8) 10/03/18 00:29 Lymph # 1.2 K/mm3 (1.2-5.4) 10/03/18 00:29 [place] # 0.8 K/mm3 (0.0-0.8) 10/03/18 00:29 Eos # 0.3 K/mm3 (0.0-0.4) 10/03/18 00:29 Baso # 0.1 K/mm3 (0.0-0.1) 10/03/18 00:29 Seg Neutrophils % 78.0 % (40.0-70.0) H 10/03/18 00:29 Seg Neutrophils # 8.4 K/mm3 (1.8-7.7) H 10/03/18 00:29 POC ABG pH 7.525 (7.35-7.45) H 10/03/18 04:37 POC ABG pCO2 33.1 (35-45) L 09/27/18 23:34 POC ABG pO2 63 (80-105) L 10/03/18 04:37 POC ABG HCO3 23.4 (22-26 mml/L) 10/03/18 04:37 POC ABG Total CO2 24 (23-27mmol/L) 10/03/18 04:37 POC ABG O2 Sat 94 10/03/18 04:37 POC ABG Base Excess 1 ((-2) - (+3)mmol/L) 10/03/18 04:37 40 % 10/03/18 04:37 Sodium 140 mmol/L (137-145) 10/02/18 08:45 Potassium 3.7 mmol/L (3.6-5.0) D 10/02/18 08:45 Chloride 105.1 mmol/L (98-107) 10/02/18 08:45 Carbon Dioxide 24 mmol/L (22-30) 10/02/18 08:45 15 mmol/L 10/02/18 08:45 BUN 29 mg/dL (9-20) H 10/02/18 08:45 1.0 mg/dL (0.8-1.5) 10/02/18 08:45 Estimated GFR > 60 ml/min 10/02/18 08:45 29 % 10/02/18 08:45 Glucose 229 mg/dL (75-100) H 10/02/18 08:45 POC Glucose 219 (70-105) H 10/03/18 16:35 Lactic Acid 1.20 mmol/L (0.7-2.0) 10/03/18 15:26 Calcium 7.9 mg/dL (8.4-10.2) L 10/02/18 08:45 Phosphorus 3.40 mg/dL (2.5-4.5) 10/02/18 08:45 Magnesium 1.80 mg/dL (1.7-2.3) 10/02/18 08:45 0.20 mg/dL (0.1-1.2) 09/27/18 23:00 AST 78 units/L (5-40) H 09/27/18 23:00 ALT 107 units/L (7-56) H 09/27/18 23:00 178 units/L (35-129) H 09/27/18 23:00 301 units/L (55-170) H 09/28/18 12:11 CK-MB (CK-2) 3.1 ng/mL (0.0-4.0) 09/28/18 12:11 CK-MB (CK-2) Rel Index 1.0 (0-4) 09/28/18 12:11 0.294 ng/mL (0.00-0.029) H* D 09/28/18 12:11 14.70 mg/dL (0.00-1.30) H 10/03/18 15:26 6.8 g/dL (6.3-8.2) 09/27/18 23:00 1.9 g/dL (3.9-5) L 09/27/18 23:00 0.4 % 09/27/18 23:00 Triglycerides 61 mg/dL (2-149) 09/27/18 23:00 Cholesterol 56 mg/dL (50-199) 09/27/18 23:00 25 mg/dL (50-130) L 09/27/18 23:00 19 mg/dL (40-59) L 09/27/18 23:00 2.94 % 09/27/18 23:00 Yellow (Yellow) 09/28/18 01:05 Cloudy (Clear) 09/28/18 01:05 7.0 (5.0-7.0) 09/28/18 01:05 Ur Specific [place] 1.017 (1.003-1.030) 09/28/18 01:05 100 mg/dl mg/dL (Negative) 09/28/18 01:05 150 mg/dL (Negative) 09/28/18 01:05 Neg mg/dL (Negative) 09/28/18 01:05 Sm (Negative) 09/28/18 01:05 Neg (Negative) 09/28/18 01:05 Neg (Negative) 09/28/18 01:05 < 2.0 mg/dL (<2.0) 09/28/18 01:05 Ur Leukocyte Esterase Lg (Negative) 09/28/18 01:05 63.0 /HPF (0.0-6.0) H 09/28/18 01:05 182.0 /HPF (0.0-6.0) 09/28/18 01:05 U Epithel Cells (Auto) < 1.0 /HPF (0-13.0) 09/28/18 01:05 2+ /HPF (Negative) 09/28/18 01:05 Few /HPF 09/28/18 01:05 3+ /HPF 09/28/18 01:05 Active Medications - Current Medications Current Medications: Generic Name Dose Route Start Last Admin Trade Name Freq PRN Reason Stop Dose Admin Acetaminophen 650 mg 09/28/18 03:16 10/03/18 00:06 Tylenol [place] 650 mg Q4H PRN Administration Fever >101 Albuterol 2.5 mg 09/28/18 03:14 Proventil IH Q6HRT PRN Shortness Of Breath Albuterol 2.5 mg 10/01/18 20:00 10/03/18 12:59 Proventil IH 2.5 mg Q6HRT [facility] Administration Amantadine HCl 100 mg 09/28/18 10:00 10/02/18 09:02 Symmetrel FEEDTUBE 100 mg DAILY [facility] Administration Amlodipine Besylate 5 mg 09/28/18 10:00 10/03/18 09:56 Norvasc FEEDTUBE Not Given DAILY [facility] Lipase/Protease/Amylase 1 each 09/28/18 15:[address] 10,500 Unit FEEDTUBE PRN PRN For Clogged Feeding Tube Ascorbic Acid 500 mg 09/28/18 10:00 10/03/18 09:54 Vitamin C FEEDTUBE 500 mg QDAY [facility] Administration Aspirin 81 mg 09/29/18 10:00 10/03/18 09:54 Baby Aspirin FEEDTUBE 81 mg QDAY [facility] Administration Atorvastatin Calcium 40 mg 09/28/18 22:00 10/03/18 01:13 Lipitor FEEDTUBE Not Given QHS [facility] Bisacodyl 10 mg 09/28/18 03:34 Dulcolax [place] QDAY PRN Constipation Dextrose 50 ml 07/01/19 03:11 10/01/18 18:14 D50w (25gm) Syringe IV 50 ml PRN PRN Administration Hypoglycemia Docusate Sodium 100 mg 09/28/18 03:34 Colace FEEDTUBE QDAY PRN Constipation Famotidine 20 mg 10/03/18 16:00 10/03/18 16:16 Pepcid PO 20 mg QDAY [facility] Administration Ferrous Sulfate 308 mg 09/28/18 10:00 10/03/18 09:53 Ferrous Sulfate FEEDTUBE 308 mg DAILY [facility] Administration Fluconazole 200 mg 10/03/18 18:00 Diflucan PO 10/03/18 18:01 ONCE ONE Fluconazole 100 mg 10/04/18 10:00 Diflucan PO QDAY [facility] Furosemide 40 mg 10/02/18 18:00 10/03/18 06:26 Lasix IV Not Given 0600,1800 [facility] Glycopyrrolate 2 mg 09/28/18 06:00 10/03/18 15:44 Robinul FEEDTUBE 2 mg Q8H [facility] Administration Heparin Sodium (Porcine) 5,000 unit 09/28/18 10:00 10/03/18 09:54 Heparin SUB-Q 5,000 unit Q12HR [facility] Administration Hydralazine HCl 10 mg 10/01/18 15:51 10/02/18 05:45 Apresoline IV 10 mg Q4HR PRN Administration Hypertension Cefepime HCl 2 gm in 100 mls @ 200 mls/hr 09/27/18 23:00 10/03/18 09:48 Maxipime/Ns 2 Gm/100 Ml IV 200 mls/hr Q12HR [facility] Administration Protocol Vancomycin HCl 1,250 mg/ 275 mls @ 166.667 mls/hr 09/28/18 22:00 10/02/18 21:20 Sodium Chloride IV 166.667 mls/hr Q24H [facility] Administration Insulin Glargine 40 units 09/28/18 22:00 10/03/18 01:12 Lantus SUB-Q Not Given QHS [facility] Insulin Human Lispro 8 unit 09/28/18 16:30 10/03/18 15:48 Humalog SUB-Q 8 unit AC [facility] Administration Insulin Human Regular 0 units 10/01/18 12:00 10/03/18 16:19 Humulin R SUB-Q Not Given Q6HR [facility] Protocol Lacosamide 100 mg 09/28/18 10:00 10/03/18 09:54 Vimpat PO 100 mg Q12HR [facility] Administration Lisinopril 10 mg 09/29/18 10:00 10/03/18 09:57 Zestril FEEDTUBE Not Given QDAY [facility] Metoclopramide HCl 10 mg 10/02/18 23:57 10/03/18 00:59 Reglan IV 10 mg Q6H PRN Administration Nausea And Vomiting Ondansetron HCl 4 mg 09/28/18 03:17 10/02/18 21:47 Zofran IV 4 mg Q8H PRN Administration Nausea And Vomiting Simple Syrup 15 ml 09/28/18 15:34 09/29/18 04:50 Simple Syrup FEEDTUBE 15 ml PRN PRN Administration Hypoglycemia Simple Syrup 30 ml 09/28/18 15:34 Simple Syrup FEEDTUBE PRN PRN Hypoglycemia Sodium Bicarbonate 325 mg 09/28/18 15:34 Sodium Bicarbonate FEEDTUBE PRN PRN For Clogged Feeding Tube Sucralfate 1 gm 09/28/18 04:00 10/03/18 15:44 Carafate FEEDTUBE 1 gm Q8H [facility] Administration Tamsulosin HCl 0.4 mg 09/29/18 10:00 10/03/18 09:54 Flomax PO 0.4 mg QDAY [facility] Administration Nutrition/Malnutrition Assess - Dietary Evaluation Nutrition/Malnutrition Findings: Nutrition Notes Start: 09/28/18 15:13 Freq: Status: Active Protocol: Document 09/30/18 16:07 RM (Rec: 09/30/18 16:10 RM [id number]) Nutrition Notes Initial or Follow up Reassessment Current Diagnosis Diabetes,Sepsis,Hypertension, Stroke,Hyperlipidemia Other Pertinent Diagnosis Multiple wounds, Seizure disorder, Dysphagia, encephalopathy,UTI, PEG Current Diet Glucerna 1.2 at 65 ml/hr Labs/Tests Reviewed Pertinent Medications Solu-Medrol,Propofol at 8.8 ml /hr (232 kcal) Height 5 ft 7 in Weight 90.3 kg [place] Body Weight (kg) 67.27 BMI 31.1 Weight change and time frame current wt obtained from bedscale Subjective/Other Information Observed Glucerna infusing at goal rate. Per nurse pt is tolerating TF. Percent of energy/protein needs met: 98%/96% Burn Absent Trauma Absent #1 Nutrition Diagnosis Inadequate oral intake Diagnosis Progress(for reassessment Continues documentation) Is patient on ventilator? No Is Patient Ambulatory and/or Out of Bed No REE-([facility]-confined to bed) 1904.352 Calculation Used for Recommendations [facility] Additional Notes Protein Needs: 98-123g (1.2-1. 5g/kg) Fluid Needs: 1 ml/kcal Nutrition Intervention Nutrition Support: Glucerna 1.2 at 65 ml/hr. Water flush of 100 mls q 4 hrs . Kcal 1,872 Protein (gm) 94 Fluid (mL) 1,256 Goal #1 TF tolerance Goal #2 Continue to meet at least 75% of calorie and protein needs via TF Anticipated Discharge Needs: TF Follow-Up By: 10/07/18 Additional Comments Follow for TF tolerance
[2018-10-03] MEDS: SYMMETREL FEEDTUBE SCH (17:59)
[2018-10-03] MEDS ORDERED: DIFLUCAN PO ONE (18:00)
[2018-10-03] MEDS: VANCOMYCIN 1,250 MG in NACL 0.9% 250ML 250 ML IV SCH (21:49)
[2018-10-04] MEDS: HumuLIN R SUB-Q SCH ×4 (00:47→19:18)
[2018-10-04] MEDS: PROVENTIL IH SCH ×4 (03:11→20:08)
[2018-10-04] MEDS: ROBINUL FEEDTUBE SCH ×3 (05:30→22:03)
[2018-10-04] MEDS: CARAFATE FEEDTUBE SCH ×3 (05:31→22:03)
[2018-10-04] MEDS: LASIX IV SCH ×2 (05:31→19:18)
--- NOTE | 2018-10-04 08:41 | Consultation ---
PULMONARY CONSULT NOTE CONSULTING PHYSICIAN: Dr. Camara. REASON FOR CONSULTATION: Aspiration pneumonia, acute on chronic hypoxemic respiratory failure. CHIEF COMPLAINT AND HISTORY OF PRESENT ILLNESS: As follows: The patient is a 77-year-old -[place] man, known to me from a recent admission from an acute respiratory failure, alf resident, was sent into the Emergency Room due to hyperglycemia essentially. He was evaluated in the Emergency Room. He does have a chronic trach and was ultimately diagnosed with sepsis, presumably due to urinary tract infection and was admitted to the hospital and has been managed in the hospital. I did actually run into his in the hallway a few days back, I believe ____ and had requested just a quick look at the patient. She was bothered that he was beginning to show evidence of peripheral edema, which he had shown before, but really not angioedema-type, tongue protrusion or lip swelling that we had seen prior. Whatever the case, he has been managed in the hospital by the hospitalist team. A consult was placed today for us to continue to assist with management for possible aspiration. When I stopped by to see him, he was resting in bed, work of breathing was slightly increased, but not much above the last baseline that I saw him at. I do not have any history of vomiting. His unfortunately is not in the room at this point. The patient is not a current smoker. The above is as much of the history of presentation as I have. PAST MEDICAL HISTORY: Again, history of chronic respiratory failure, status post trach, history of hypertension, cerebrovascular accident, diabetes, history of seizures, oropharyngeal dysphagia, prostatic hyperplasia, chronic encephalopathy. PAST SURGICAL HISTORY: Status post tracheostomy, status post percutaneous endoscopic gastrostomy tube placement. MEDICATIONS: He was on at the time I stopped by to see him were reviewed. Pertinent medications include the following: Tylenol 650 mg per rectum q. 4 hours p.r.n. fever greater than 101, albuterol treatments nebulized q. 6 hours, amantadine 100 mg via feeding tube daily, Norvasc 5 mg p.o. daily, all p.o. meds via the feeding tube, vitamin C 500 mg p.o. daily, aspirin 81 mg p.o. daily, Lipitor 40 mg p.o. at bedtime, p.r.n. Dulcolax, cefepime 2 g IV q. 12 hours, docusate sodium 100 mg via feeding tube p.r.n., ferrous sulfate ____ mg via feeding tube daily, Lasix 40 mg IV q. 12 hours b.i.d., Robinul 2 mg p.o. q.8 hours, heparin 5000 units subcu q. 12, hydralazine 10 mg IV q. 4 hours p.r.n. hypertension, Lantus insulin 40 units subcutaneous at bedtime as well as insulin via sliding scale, Vimpat 100 mg p.o. q. 12 hours, lisinopril 10 mg p.o. daily, p.r.n. Reglan, Zofran 4 mg IV q. 8 hours p.r.n. nausea and vomiting. ALLERGIES: No known drug allergies. DIET: Obese gentleman, no significant weight loss or gain since I have last seen him. FAMILY AND SOCIAL HISTORY: jail resident. No current alcohol, tobacco, or illicit drug use or abuse. Remote history is unknown. REVIEW OF SYSTEMS: Unobtainable secondary to the patient's medical and mental condition. Since he has been here, no gross hematochezia or melena, no gross hematuria, no witnessed seizures have been reported and no hematemesis, no bloody tracheal secretions. Review of systems otherwise unobtainable. PHYSICAL EXAMINATION: VITAL SIGNS: At initial presentation in the Emergency Room, he had a low grade fever of 100.2 degrees Fahrenheit rectally with a pulse of 101, respiratory rate of 14, blood pressure 126/61, O2 sats 100%, inspired oxygen concentration was not recorded. Since he has been here, he has continued to spike low-grade fevers, the highest that she has 100.6 yesterday. When I stopped by to see him, he was again on the aerosol T-Piece 28% FiO2. GENERAL: Elderly looking -Af[place] male. Normocephalic. Resting peacefully in bed with mildly increased respiratory effort at rest. HEAD, EYES, EARS, NOSE AND THROAT: He is anicteric. No conjunctival erythema. Oropharynx is moist. No obvious tongue swelling. Midline tracheostomy tube is in place. No significant bleeding or exudation around it. No gross jugular venous distention. No thyromegaly. LUNGS: Auscultation of both lung le reveals bilateral crackles and referred upper airway sounds. No active wheezing. I should mention I do hear some rales particular in the right upper lobe region. HEART: Heart sounds 1 and 2 are heard. They were regular in rhythm at time of my evaluation. ABDOMEN: Soft, full, bowel sounds are positive, nontender. PEG tube in place. EXTREMITIES: Without overt digital clubbing or cyanosis. He has about 2+ bipedal pitting edema, no significant digital clubbing. Pedal pulsations are palpable bilaterally and strong. NEUROLOGIC: Pupils are equal, round, about 3 mm, reactive to light. Extraocular muscle movements could not be assessed. He has some spontaneous movements of his extremities, but not to command. No obvious spasticity or contractures. The skin is of normal turgor without overt cellulitis or rash. LABORATORY DATA: From my review are as follows: Admission white cell count 9700, hemoglobin 7.4, hematocrit 22.0, platelet count was 228. No band forms. ABG then showed a pH of 7.53, pCO2 of 33, pO2 of 97 that was on 40% FiO2. Serum sodium was 142, potassium 4.8, chloride 103, bicarbonate 26, BUN 40, creatinine 1.2 and a glucose of 431. Lactic acid level was within normal limits. AST up at 78, ALT up at 107. Troponin was elevated at 0.407. Albumin was low at 1.9. Urinalysis showed large leukocyte esterase with 63 white cells per high power field. Most recent lab work: White count is 10.7. Most recent BUN was 29 with a creatinine of 1.0. Urine culture growing yeast. Otherwise, blood cultures, no growth. No growth after 5 days. I have reviewed the chest x-rays as well as the radiologist's interpretation. Admission chest x-ray shows a tracheostomy tube in good position on lordotic film, increased interstitial markings bilaterally, centered on the right due to the rotation consistent with mild to moderate interstitial edema, I cannot rule out a left pleural effusion. Again that was the 09/27/2018. X-ray compared it with one from 08/26/2018 prior to discharge and at that time, interstitial markings were much, much better. He did seem to also still have left pleural effusion at that time. Most recent echo images however showed what appears to be a new right upper lobe infiltrate while we still have the baseline increased interstitial markings and hypoventilation. No gross pneumothorax, no gross bony fracture. ASSESSMENT: 1. Acute on chronic hypoxemic respiratory failure. 2. Possible aspiration pneumonia with the patient in a flat position most of the time. 3. Suspected bilateral pulmonary edema. 4. Diabetes type 2. 5. Chronic toxic metabolic encephalopathy. 6. History of cardiac arrest. 7. Urinary tract infection. 8. Anemia. 9. Elevated serum troponins, possible non-ST elevation myocardial infarction. 10. Oropharyngeal dysphagia. 11. Adult failure to thrive. PLAN: I do feel that volume overload pulmonary edema explain a significant pattern in the infiltrates that we do see, however, the right upper lobe infiltrates do suggest possible aspiration. This could definitely occur with the patient lying flat if he did have a bout of emesis at the time he aspirated. He has been started empirically on healthcare-associated pneumonia antibiotics, though the question is whether we should add empiric vancomycin. He actually has been started on vancomycin. I will get a CRP level to better evaluate the true infectious potential of his presentation and the infiltrates especially with a normal white count. I agree with the diuresis. We will keep an eye on his electrolytes and renal function and adjust as necessary. I will follow with p.r.n. chest x-rays. Continue bronchodilators with pulmonary hygiene per RT as well as routine strict aspiration precautions should be strongly maintained, head of bed above 40 degrees at all times. He is appropriately on DVT prophylaxis. I will put him on GI prophylaxis. Flu and pneumonia vaccination will be addressed per protocol. Thank you very much for the consult. We will follow along. We will make further recommendations as picture progresses/becomes clearer. JOB# [id number] RENEE/NELSON BROOKS
[2018-10-04] MEDS: MAXIPIME/NS 2 GM/100 ML 2 GM/100 ML BAG IV SCH ×2 (09:57→21:57)
--- NOTE | 2018-10-04 10:04 | Progress Note ---
Assessment and Plan Assessment and plan: --Aspiration pneumonia; patient is already on cefepime and vancomycin Status post Levaquin, aspiration precautions, PEG feeds, Supportive care, follow-up chest x-ray tomorrow, pulmonary consult Please head end of the bed --Chronic respiratory failure; h/o tracheostomy on T piece Continue oxygen nebulizers supportive care Chest x-ray, patient has copious secretions --Generalized edema and fluid overload; IV diuretics Monitor input output --Type 2 diabetes mellitus uncontrolled /Hyperglycemia blood sugars are well controlled, continue Accu-Chek sliding scale coverage and tube feeding ,long acting insulin --Toxic metabolic encephalopathy; present on admission Multifactorial, neuro checks and supportive care --History of cardiac arrest in the past; anoxic encephalopathy Supportive care --Sepsis/possible UTI empiric antibiotics, and cultures positive for Yeast. Start Diflucan for total 10 days --Anemia; closely monitor H&H and transfuse as needed --Elevated troponins; probably nonspecific Closely monitor, cardiology consult if needed --DVT prophylaxis; Lovenox Full CODE STATUS Follow-up chest x-ray, Discharge planning; DC and transfer back to SNF when medically stable Monitor closely and adjust the management as needed Plan of care is reviewed with the patient's and his nurse Possible discharge back to SNF in 1-2 days History Interval history: Patient seen and examined medical records reviewed patient status post tracheostomy on T piece Noncommunicative Afebrile, vital signs noted Vital signs noted Hospitalist Physical - Constitutional Vitals: Temp Pulse Resp BP Pulse Ox 97.5 F L 93 H 18 127/38 95 10/04/18 08:15 10/04/18 08:10 10/04/18 08:15 10/04/18 08:15 10/04/18 08:44 General appearance: Present: no acute distress, well-nourished, other (tracheostomy on T piece) - EENT Eyes: Present: PERRL, EOM intact - Neck Neck: Present: supple, normal ROM - Respiratory Respiratory effort: normal Respiratory: bilateral: diminished, rhonchi, negative: rales, wheezing - Cardiovascular Rhythm: regular Heart Sounds: Present: S1 & S2 - Extremities Extremities: no ischemia Extremity abnormal: edema - Abdominal General gastrointestinal: soft, non-tender, non-distended, normal bowel sounds, other (PEG tube in place) - Integumentary Integumentary: Present: clear, warm - Psychiatric Psychiatric: other (noncommunicative) - Neurologic Neurologic: other (status post cardiac arrest, severe encephalopathy) Results - Labs CBC & Chem 7: 10/03/18 00:29 10/02/18 08:45 Labs: Laboratory Last Values WBC 10.7 K/mm3 (4.5-11.0) 10/03/18 00:29 RBC 2.87 M/mm3 (3.65-5.03) L 10/03/18 00:29 Hgb 7.6 gm/dl (11.8-15.2) L 10/03/18 00:29 Hct 23.0 % (35.5-45.6) L 10/03/18 00: MCV 80 fl (84-94) L 10/03/18 00:29 MCH 26 pg (28-32) L 10/03/18 00: MCHC 33 % (32-34) 10/03/18 00:29 RDW 20.5 % (13.2-15.2) H 10/03/18 00:29 Plt Count 274 K/mm3 (140-440) 10/03/18 00:29 Lymph % (Auto) 11.6 % (13.4-35.0) L 10/03/18 00:29 Wetzel % (Auto) 7.5 % (0.0-7.3) H 10/03/18 00:29 Eos % (Auto) 2.4 % (0.0-4.3) 10/03/18 00:29 Baso % (Auto) 0.5 % (0.0-1.8) 10/03/18 00:29 Lymph # 1.2 K/mm3 (1.2-5.4) 10/03/18 00:29 Wetzel # 0.8 K/mm3 (0.0-0.8) 10/03/18 00:29 Eos # 0.3 K/mm3 (0.0-0.4) 10/03/18 00:29 Baso # 0.1 K/mm3 (0.0-0.1) 10/03/18 00:29 Seg Neutrophils % 78.0 % (40.0-70.0) H 10/03/18 00:29 Seg Neutrophils # 8.4 K/mm3 (1.8-7.7) H 10/03/18 00:29 POC ABG pH 7.525 (7.35-7.45) H 10/03/18 04:37 POC ABG pCO2 33.1 (35-45) L 09/27/18 23:34 POC ABG pO2 63 (80-105) L 10/03/18 04:37 POC ABG HCO3 23.4 (22-26 mml/L) 10/03/18 04:37 POC ABG Total CO2 24 (23-27mmol/L) 10/03/18 04:37 POC ABG O2 Sat 94 10/03/18 04:37 POC ABG Base Excess 1 ((-2) - (+3)mmol/L) 10/03/18 04:37 40 % 10/03/18 04:37 Sodium 140 mmol/L (137-145) 10/02/18 08:45 Potassium 3.7 mmol/L (3.6-5.0) D 10/02/18 08:45 Chloride 105.1 mmol/L (98-107) 10/02/18 08:45 Carbon Dioxide 24 mmol/L (22-30) 10/02/18 08:45 15 mmol/L 10/02/18 08:45 BUN 29 mg/dL (9-20) H 10/02/18 08:45 1.0 mg/dL (0.8-1.5) 10/02/18 08:45 Estimated GFR > 60 ml/min 10/02/18 08:45 29 % 10/02/18 08:45 Glucose 229 mg/dL (75-100) H 10/02/18 08:45 POC Glucose 209 (70-105) H 10/04/18 05:33 Lactic Acid 1.20 mmol/L (0.7-2.0) 10/03/18 15:26 Calcium 7.9 mg/dL (8.4-10.2) L 10/02/18 08:45 Phosphorus 3.40 mg/dL (2.5-4.5) 10/02/18 08:45 Magnesium 1.80 mg/dL (1.7-2.3) 10/02/18 08:45 0.20 mg/dL (0.1-1.2) 09/27/18 23:00 AST 78 units/L (5-40) H 09/27/18 23:00 ALT 107 units/L (7-56) H 09/27/18 23:00 178 units/L (35-129) H 09/27/18 23:00 301 units/L (55-170) H 09/28/18 12:11 CK-MB (CK-2) 3.1 ng/mL (0.0-4.0) 09/28/18 12:11 CK-MB (CK-2) Rel Index 1.0 (0-4) 09/28/18 12:11 0.294 ng/mL (0.00-0.029) H* D 09/28/18 12:11 14.70 mg/dL (0.00-1.30) H 10/03/18 15:26 6.8 g/dL (6.3-8.2) 09/27/18 23:00 1.9 g/dL (3.9-5) L 09/27/18 23:00 0.4 % 09/27/18 23:00 Triglycerides 61 mg/dL (2-149) 09/27/18 23:00 Cholesterol 56 mg/dL (50-199) 09/27/18 23:00 25 mg/dL (50-130) L 09/27/18 23:00 19 mg/dL (40-59) L 09/27/18 23:00 2.94 % 09/27/18 23:00 Yellow (Yellow) 09/28/18 01:05 Cloudy (Clear) 09/28/18 01:05 7.0 (5.0-7.0) 09/28/18 01:05 Ur Specific [place] 1.017 (1.003-1.030) 09/28/18 01:05 100 mg/dl mg/dL (Negative) 09/28/18 01:05 150 mg/dL (Negative) 09/28/18 01:05 Neg mg/dL (Negative) 09/28/18 01:05 Sm (Negative) 09/28/18 01:05 Neg (Negative) 09/28/18 01:05 Neg (Negative) 09/28/18 01:05 < 2.0 mg/dL (<2.0) 09/28/18 01:05 Ur Leukocyte Esterase Lg (Negative) 09/28/18 01:05 63.0 /HPF (0.0-6.0) H 09/28/18 01:05 182.0 /HPF (0.0-6.0) 09/28/18 01:05 U Epithel Cells (Auto) < 1.0 /HPF (0-13.0) 09/28/18 01:05 2+ /HPF (Negative) 09/28/18 01:05 Few /HPF 09/28/18 01:05 3+ /HPF 09/28/18 01:05 Random Vancomycin 23.4 ug/mL (0-40.0) 10/03/18 19:57 Active Medications - Current Medications Current Medications: Generic Name Dose Route Start Last Admin Trade Name Freq PRN Reason Stop Dose Admin Acetaminophen 650 mg 09/28/18 03:16 10/03/18 00:06 Tylenol AL 650 mg Q4H PRN Administration Fever >101 Albuterol 2.5 mg 09/28/18 03:14 Proventil IH Q6HRT PRN Shortness Of Breath Albuterol 2.5 mg 10/01/18 20:00 10/04/18 07:50 Proventil IH 2.5 mg Q6HRT LENCHO Administration Amantadine HCl 100 mg 09/28/18 10:00 10/03/18 17:59 Symmetrel FEEDTUBE 100 mg DAILY LENCHO Administration Amlodipine Besylate 5 mg 09/28/18 10:00 10/03/18 09:56 Norvasc FEEDTUBE Not Given DAILY LENCHO Lipase/Protease/Amylase 1 each 09/28/18 15:[address] 10,500 Unit FEEDTUBE PRN PRN For Clogged Feeding Tube Ascorbic Acid 500 mg 09/28/18 10:00 10/03/18 09:54 Vitamin C FEEDTUBE 500 mg QDAY LENCHO Administration Aspirin 81 mg 09/29/18 10:00 10/03/18 09:54 Baby Aspirin FEEDTUBE 81 mg QDAY LENCHO Administration Atorvastatin Calcium 40 mg 09/28/18 22:00 10/03/18 21:50 Lipitor FEEDTUBE 40 mg QHS LENCHO Administration Bisacodyl 10 mg 09/28/18 03:34 Dulcolax AL QDAY PRN Constipation Dextrose 50 ml 09/28/18 03:11 10/01/18 18:14 D50w (25gm) Syringe IV 50 ml PRN PRN Administration Hypoglycemia Docusate Sodium 100 mg 09/28/18 03:34 Colace FEEDTUBE QDAY PRN Constipation Famotidine 20 mg 10/03/18 16:00 10/03/18 16:16 Pepcid PO 20 mg QDAY LENCHO Administration Ferrous Sulfate 308 mg 09/28/18 10:00 10/03/18 09:53 Ferrous Sulfate FEEDTUBE 308 mg DAILY LENCHO Administration Fluconazole 100 mg 10/04/18 10:00 Diflucan PO QDAY LENCHO Furosemide 40 mg 10/02/18 18:00 10/04/18 05:31 Lasix IV 40 mg 0600,1800 LENCHO Administration Glycopyrrolate 2 mg 09/28/18 06:00 10/04/18 05:30 Robinul FEEDTUBE 2 mg Q8H LENCHO Administration Heparin Sodium (Porcine) 5,000 unit 09/28/18 10:00 10/03/18 21:50 Heparin SUB-Q 5,000 unit Q12HR LENCHO Administration Hydralazine HCl 10 mg 10/01/18 15:51 10/02/18 05:45 Apresoline IV 10 mg Q4HR PRN Administration Hypertension Cefepime HCl 2 gm in 100 mls @ 200 mls/hr 09/27/18 23:00 10/03/18 21:49 Maxipime/Ns 2 Gm/100 Ml IV 200 mls/hr Q12HR LENCHO Administration Protocol Vancomycin HCl 1,250 mg/ 275 mls @ 166.667 mls/hr 10/05/18 09:00 Sodium Chloride IV Q36H [facility] Insulin Glargine 40 units 09/28/18 22:00 10/03/18 21:51 Lantus SUB-Q Not Given QHS [facility] Insulin Human Lispro 8 unit 09/28/18 16:30 10/03/18 15:48 Humalog SUB-Q 8 unit AC LENCHO Administration Insulin Human Regular 0 units 10/01/18 12:00 10/04/18 05:30 Humulin R SUB-Q 3 units Q6HR LENCHO Administration Protocol Lacosamide 100 mg 09/28/18 10:00 10/03/18 21:49 Vimpat PO 100 mg Q12HR [facility] Administration Lisinopril 10 mg 09/29/18 10:00 10/03/18 09:57 Zestril FEEDTUBE Not Given QDAY LENCHO Metoclopramide HCl 10 mg 10/02/18 23:57 10/03/18 00:59 Reglan IV 10 mg Q6H PRN Administration Nausea And Vomiting Ondansetron HCl 4 mg 09/28/18 03:17 10/02/18 21:47 Zofran IV 4 mg Q8H PRN Administration Nausea And Vomiting Simple Syrup 15 ml 09/28/18 15:34 09/29/18 04:50 Simple Syrup FEEDTUBE 15 ml PRN PRN Administration Hypoglycemia Simple Syrup 30 ml 09/28/18 15:34 Simple Syrup FEEDTUBE PRN PRN Hypoglycemia Sodium Bicarbonate 325 mg 09/28/18 15:34 Sodium Bicarbonate FEEDTUBE PRN PRN For Clogged Feeding Tube Sucralfate 1 gm 09/28/18 04:00 10/04/18 05:31 Carafate FEEDTUBE 1 gm Q8H LENCHO Administration Tamsulosin HCl 0.4 mg 09/29/18 10:00 10/03/18 09:54 Flomax PO 0.4 mg QDAY LENCHO Administration Nutrition/Malnutrition Assess - Dietary Evaluation Nutrition/Malnutrition Findings: Nutrition Notes Start: 09/28/18 15:13 Freq: Status: Active Protocol: Document 09/30/18 16:07 RM (Rec: 09/30/18 16:10 RM [id number]) Nutrition Notes Initial or Follow up Reassessment Current Diagnosis Diabetes,Sepsis,Hypertension, Stroke,Hyperlipidemia Other Pertinent Diagnosis Multiple wounds, Seizure disorder, Dysphagia, encephalopathy,UTI, PEG Current Diet Glucerna 1.2 at 65 ml/hr Labs/Tests Reviewed Pertinent Medications Solu-Medrol,Propofol at 8.8 ml /hr (232 kcal) Height 5 ft 7 in Weight 90.3 kg [place] Body Weight (kg) 67.27 BMI 31.1 Weight change and time frame [facility] Subjective/Other Information Observed Glucerna infusing at goal rate. Per nurse pt is tolerating TF. Percent of energy/protein needs met: 98%/96% Burn Absent Trauma Absent #1 Nutrition Diagnosis Inadequate oral intake Diagnosis Progress(for reassessment Continues documentation) Is patient on ventilator? No Is Patient Ambulatory and/or Out of Bed No REE-([facility]-confined to bed) [phone] Calculation Used for Recommendations Marleny Marques Additional Notes Protein Needs: 98-123g (1.2-1. 5g/kg) Fluid Needs: 1 ml/kcal Nutrition Intervention Nutrition Support: Glucerna 1.2 at 65 ml/hr. Water flush of 100 mls q 4 hrs . Kcal 1,872 Protein (gm) 94 Fluid (mL) 1,256 Goal #1 TF tolerance Goal #2 Continue to meet at least 75% of calorie and protein needs via TF Anticipated Discharge Needs: TF Follow-Up By: 10/07/18 Additional Comments Follow for TF tolerance
[2018-10-04] MEDS: FLOMAX PO SCH (10:13)
[2018-10-04] MEDS: VIMPAT PO SCH ×2 (10:13→22:03)
[2018-10-04] MEDS: PEPCID PO SCH (10:13)
[2018-10-04] MEDS: VITAMIN C FEEDTUBE SCH (10:13)
[2018-10-04] MEDS: BABY ASPIRIN FEEDTUBE SCH (10:13)
[2018-10-04] MEDS: HEPARIN SUB-Q SCH ×2 (10:14→22:05)
[2018-10-04] MEDS: FERROUS SULFATE FEEDTUBE SCH (10:14)
[2018-10-04] MEDS: ZESTRIL FEEDTUBE SCH (10:18)
[2018-10-04] MEDS: NORVASC FEEDTUBE SCH (10:18)
[2018-10-04] MEDS: HumaLOG SUB-Q SCH ×3 (10:19→16:16)
[2018-10-04] MEDS: SYMMETREL FEEDTUBE SCH (10:37)
[2018-10-04] MEDS: DIFLUCAN PO SCH (10:46)
--- NOTE | 2018-10-04 14:11 | Progress Note ---
Assessment and Plan Acute on chronic hypoxemic respiratory failure. Likely aspiration pneumonia (HAP) Suspected bilateral pulmonary edema. Diabetes type 2. Chronic toxic metabolic encephalopathy. History of cardiac arrest. Urinary tract infection. Anemia. H/O CVA Elevated serum troponins, possible non-ST elevation myocardial infarction. Oropharyngeal dysphagia. Adult failure to thrive. - continue empiric diuresis - continue empiric AB's and de-escalate based on clinical and microbiologic data - ID consult appropriate - prn ABG's & CXR's at this point - continue Keppra for seizures - continue Amantadine - continue bronchodilators with routine trach care and pulmonary hygiene per RT - continue to wean supplemental oxygen to keep O2 sats 88-90% - continue enteral nutrition as tolerated - continue aspiration precautions - continue accuchecks with glycemic control per SSI for target glucose of 140- 180 mg/dL (Lantus re-introduced) - Maintenance of sleep -wake cycle modalities - Mobility as tolerated by hemodynamics - continue GI & VTE prophylaxis - Influenza and pneumonia vaccination per protocol - discharge planning ongoing concurrently CODE STATUS: FULL CODE Subjective Date of service: 10/04/18 Principal diagnosis: Ac on ch hypoxemic resp failure; HAP; Urinary tract infection; DM II Interval history: Patient is seen today for: Acute on chronic hypoxemic respiratory failure; Likely aspiration pneumonia (HAP); Suspected bilateral pulmonary edema.; Diabetes type 2; Chronic encephalopathy (Anoxic); Urinary tract infection. Seen and examined at bedside; 24hour events reviewed; nursing and respiratory care staff consulted; no adverse overnight events reported to me; resting peacefully in bed; CRP was elevated but lactate WNL; AMS is persiostent; remains on supplemental oxygen; good diuresis with lasix Objective Vital Signs - 12hr 10/04/18 10/04/18 10/04/18 03:00 03:11 04:19 Temperature 99.8 F H Pulse Rate 93 H 93 H Pulse Rate [ 89 Anterior Bilateral Throughout] Pulse Rate [ From Monitor] Respiratory 20 Rate Respiratory 20 Rate [Anterior Bilateral Throughout] Blood Pressure 119/53 O2 Sat by Pulse 97 Oximetry O2 Sat by Pulse 96 Oximetry [ Assessment] 10/04/18 10/04/18 10/04/18 08:00 08:10 08:15 Temperature 97.5 F L Pulse Rate Pulse Rate [ 93 H 93 H Anterior Bilateral Throughout] Pulse Rate [ From Monitor] Respiratory 18 Rate Respiratory 18 18 Rate [Anterior Bilateral Throughout] Blood Pressure 127/38 O2 Sat by Pulse Oximetry O2 Sat by Pulse 96 Oximetry [ Assessment] 10/04/18 10/04/18 08:44 10:00 Temperature Pulse Rate Pulse Rate [ Anterior Bilateral Throughout] Pulse Rate [ 93 H From Monitor] Respiratory 16 Rate Respiratory Rate [Anterior Bilateral Throughout] Blood Pressure O2 Sat by Pulse 95 97 Oximetry O2 Sat by Pulse Oximetry [ Assessment] Constitutional: appears uncomfortable, other (elderly looking AAM, normocephalic with mildly increased resp effort at rest) Eyes: non-icteric ENT: oropharynx moist Neck: supple, no lymphadenopathy, no JVD, other (midline tracheostomy tube) Effort: mildly labored Ascultation: Bilateral: diminished breath sounds, rhonchi Percussion: Bilateral: not dull Cardiovascular: regular rate and rhythm Gastrointestinal: normoactive bowel sounds, soft, non-tender, non-distended Integumentary: rash Extremities: no cyanosis, pulses normal, no ischemia or petechiae, edema (2+) Neurologic: unable to assess Psychiatric: other (encephalopathic) CBC and BMP: 10/08/18 04:00 10/08/18 04:00 ABG, PT/INR, D-dimer: ABG POC ABG pH 7.525 (7.35-7.45) H 10/03/18 04:37 POC ABG pO2 63 (80-105) L 10/03/18 04:37 POC ABG HCO3 23.4 (22-26 mml/L) 10/03/18 04:37 POC ABG Total CO2 24 (23-27mmol/L) 10/03/18 04:37 POC ABG O2 Sat 94 10/03/18 04:37 Abnormal lab findings: Abnormal Labs 09/27/18 09/27/18 09/27/18 22:54 23:00 23:00 RBC 2.71 L Hgb 7.4 L Hct 22.0 L MCV 81 L MCH 27 L RDW 21.4 H Lymph % (Auto) [place] % (Auto) 13.8 H [place] # 1.3 H Seg Neutrophils % Seg Neutrophils # POC ABG pH POC ABG pCO2 POC ABG pO2 BUN 40 H Glucose 431 H POC Glucose 456 H Calcium AST 78 H ALT 107 H Alkaline Phosphatase 178 H Total Creatine Kinase Troponin T 0.407 H* C-Reactive Protein Albumin 1.9 L LDL Cholesterol Direct 25 L HDL Cholesterol 19 L Urine WBC (Auto) 09/27/18 09/28/18 09/28/18 23:34 01:05 02:43 RBC Hgb Hct MCV MCH RDW Lymph % (Auto) [place] % (Auto) [place] # Seg Neutrophils % Seg Neutrophils # POC ABG pH 7.525 H POC ABG pCO2 33.1 L POC ABG pO2 BUN Glucose POC Glucose 497 H Calcium AST ALT Alkaline Phosphatase Total Creatine Kinase Troponin T C-Reactive Protein Albumin LDL Cholesterol Direct HDL Cholesterol Urine WBC (Auto) 63.0 H 09/28/18 09/28/18 09/28/18 04:11 07:13 11:47 RBC Hgb Hct MCV MCH RDW Lymph % (Auto) [place] % (Auto) [place] # Seg Neutrophils % Seg Neutrophils # POC ABG pH POC ABG pCO2 POC ABG pO2 BUN Glucose POC Glucose 362 H 392 H 244 H Calcium AST ALT Alkaline Phosphatase Total Creatine Kinase Troponin T C-Reactive Protein Albumin LDL Cholesterol Direct HDL Cholesterol Urine WBC (Auto) 09/28/18 09/28/18 09/29/18 12:11 16:32 00:18 RBC Hgb Hct MCV MCH RDW Lymph % (Auto) [place] % (Auto) [place] # Seg Neutrophils % Seg Neutrophils # POC ABG pH POC ABG pCO2 POC ABG pO2 BUN Glucose POC Glucose 159 H 118 H Calcium AST ALT Alkaline Phosphatase Total Creatine Kinase 301 H Troponin T 0.294 H* D C-Reactive Protein Albumin LDL Cholesterol Direct HDL Cholesterol Urine WBC (Auto) 09/29/18 09/29/18 09/29/18 04:28 11:23 18:58 RBC Hgb Hct MCV MCH RDW Lymph % (Auto) [place] % (Auto) [place] # Seg Neutrophils % Seg Neutrophils # POC ABG pH POC ABG pCO2 POC ABG pO2 BUN Glucose POC Glucose 67 L 126 H 167 H Calcium AST ALT Alkaline Phosphatase Total Creatine Kinase Troponin T C-Reactive Protein Albumin LDL Cholesterol Direct HDL Cholesterol Urine WBC (Auto) 09/29/18 09/29/18 09/30/18 20:51 23:41 04:56 RBC Hgb Hct MCV MCH RDW Lymph % (Auto) [place] % (Auto) [place] # Seg Neutrophils % Seg Neutrophils # POC ABG pH POC ABG pCO2 POC ABG pO2 BUN Glucose POC Glucose 182 H 170 H 133 H Calcium AST ALT Alkaline Phosphatase Total Creatine Kinase Troponin T C-Reactive Protein Albumin LDL Cholesterol Direct HDL Cholesterol Urine WBC (Auto) 09/30/18 09/30/18 09/30/18 12:37 16:25 20:35 RBC Hgb Hct MCV MCH RDW Lymph % (Auto) [place] % (Auto) [place] # Seg Neutrophils % Seg Neutrophils # POC ABG pH POC ABG pCO2 POC ABG pO2 BUN Glucose POC Glucose 182 H 185 H 227 H Calcium AST ALT Alkaline Phosphatase Total Creatine Kinase Troponin T C-Reactive Protein Albumin LDL Cholesterol Direct HDL Cholesterol Urine WBC (Auto) 09/30/18 10/01/18 10/01/18 23:56 04:05 13:22 RBC Hgb Hct MCV MCH RDW Lymph % (Auto) [place] % (Auto) [place] # Seg Neutrophils % Seg Neutrophils # POC ABG pH POC ABG pCO2 POC ABG pO2 BUN Glucose POC Glucose 226 H 182 H 122 H Calcium AST ALT Alkaline Phosphatase Total Creatine Kinase Troponin T C-Reactive Protein Albumin LDL Cholesterol Direct HDL Cholesterol Urine WBC (Auto) 10/01/18 10/01/18 10/01/18 17:58 18:49 23:42 RBC Hgb Hct MCV MCH RDW Lymph % (Auto) [place] % (Auto) [place] # Seg Neutrophils % Seg Neutrophils # POC ABG pH POC ABG pCO2 POC ABG pO2 BUN Glucose POC Glucose 62 L 140 H 172 H Calcium AST ALT Alkaline Phosphatase Total Creatine Kinase Troponin T C-Reactive Protein Albumin LDL Cholesterol Direct HDL Cholesterol Urine WBC (Auto) 10/02/18 10/02/18 10/02/18 06:25 08:45 08:45 RBC 2.65 L Hgb 7.0 L Hct 21.2 L MCV 80 L MCH 26 L RDW 21.0 H Lymph % (Auto) [place] % (Auto) 9.7 H [place] # 1.0 H Seg Neutrophils % 71.9 H Seg Neutrophils # POC ABG pH POC ABG pCO2 POC ABG pO2 BUN 29 H Glucose 229 H POC Glucose 226 H Calcium 7.9 L AST ALT Alkaline Phosphatase Total Creatine Kinase Troponin T C-Reactive Protein Albumin LDL Cholesterol Direct HDL Cholesterol Urine WBC (Auto) 10/02/18 10/02/18 10/02/18 12:06 17:42 21:02 RBC Hgb Hct MCV MCH RDW Lymph % (Auto) [place] % (Auto) [place] # Seg Neutrophils % Seg Neutrophils # POC ABG pH POC ABG pCO2 POC ABG pO2 BUN Glucose POC Glucose 217 H 216 H 116 H Calcium AST ALT Alkaline Phosphatase Total Creatine Kinase Troponin T C-Reactive Protein Albumin LDL Cholesterol Direct HDL Cholesterol Urine WBC (Auto) 10/03/18 10/03/18 10/03/18 00:29 00:49 04:37 RBC 2.87 L Hgb 7.6 L Hct 23.0 L MCV 80 L MCH 26 L RDW 20.5 H Lymph % (Auto) 11.6 L [place] % (Auto) 7.5 H [place] # Seg Neutrophils % 78.0 H Seg Neutrophils # 8.4 H POC ABG pH 7.525 H POC ABG pCO2 POC ABG pO2 63 L BUN Glucose POC Glucose 117 H Calcium AST ALT Alkaline Phosphatase Total Creatine Kinase Troponin T C-Reactive Protein Albumin LDL Cholesterol Direct HDL Cholesterol Urine WBC (Auto) 10/03/18 10/03/18 10/03/18 05:49 12:20 15:26 RBC Hgb Hct MCV MCH RDW Lymph % (Auto) [place] % (Auto) [place] # Seg Neutrophils % Seg Neutrophils # POC ABG pH POC ABG pCO2 POC ABG pO2 BUN Glucose POC Glucose 218 H 238 H Calcium AST ALT Alkaline Phosphatase Total Creatine Kinase Troponin T C-Reactive Protein 14.70 H Albumin LDL Cholesterol Direct HDL Cholesterol Urine WBC (Auto) 10/03/18 10/03/18 10/04/18 16:35 21:13 00:26 RBC Hgb Hct MCV MCH RDW Lymph % (Auto) [place] % (Auto) [place] # Seg Neutrophils % Seg Neutrophils # POC ABG pH POC ABG pCO2 POC ABG pO2 BUN Glucose POC Glucose 219 H 158 H 181 H Calcium AST ALT Alkaline Phosphatase Total Creatine Kinase Troponin T C-Reactive Protein Albumin LDL Cholesterol Direct HDL Cholesterol Urine WBC (Auto) 10/04/18 10/04/18 05:33 12:10 RBC Hgb Hct MCV MCH RDW Lymph % (Auto) [place] % (Auto) [place] # Seg Neutrophils % Seg Neutrophils # POC ABG pH POC ABG pCO2 POC ABG pO2 BUN Glucose POC Glucose 209 H 270 H Calcium AST ALT Alkaline Phosphatase Total Creatine Kinase Troponin T C-Reactive Protein Albumin LDL Cholesterol Direct HDL Cholesterol Urine WBC (Auto) Chest x-ray: image reviewed (RUL predominant infiltrate) Allied health notes reviewed: nursing
[2018-10-04] MEDS: LANTUS SUB-Q SCH (22:19)
[2018-10-05] MEDS: HumuLIN R SUB-Q SCH ×4 (00:03→17:27)
[2018-10-05] MEDS: TYLENOL PR PRN (00:04)
[2018-10-05] MEDS: PROVENTIL IH SCH ×4 (02:17→19:11)
[2018-10-05] MEDS: LASIX IV SCH ×2 (05:10→17:25)
[2018-10-05] MEDS: ROBINUL FEEDTUBE SCH ×3 (05:10→21:06)
[2018-10-05] MEDS: CARAFATE FEEDTUBE SCH ×3 (05:10→21:01)
[2018-10-05] MEDS: HumaLOG SUB-Q SCH ×3 (07:45→16:30)
[2018-10-05] MEDS ORDERED: VANCOMYCIN 1,250 MG in NACL 0.9% 250ML 250 ML IV SCH (09:00)
[2018-10-05] MEDS: MAXIPIME/NS 2 GM/100 ML 2 GM/100 ML BAG IV SCH ×2 (09:50→21:02)
[2018-10-05] MEDS: FERROUS SULFATE FEEDTUBE SCH (09:50)
[2018-10-05] MEDS: NORVASC FEEDTUBE SCH (09:51)
[2018-10-05] MEDS: BABY ASPIRIN FEEDTUBE SCH (09:51)
[2018-10-05] MEDS: SYMMETREL FEEDTUBE SCH (09:51)
[2018-10-05] MEDS: VITAMIN C FEEDTUBE SCH (09:52)
[2018-10-05] MEDS: VIMPAT PO SCH ×2 (09:52→21:02)
[2018-10-05] MEDS: PEPCID PO SCH (09:52)
[2018-10-05] MEDS: ZESTRIL FEEDTUBE SCH (09:53)
[2018-10-05] MEDS: FLOMAX PO SCH (09:54)
[2018-10-05] MEDS: DIFLUCAN PO SCH (09:54)
[2018-10-05] MEDS: HEPARIN SUB-Q SCH ×2 (10:02→21:02)
--- NOTE | 2018-10-05 10:32 | Progress Note ---
Assessment and Plan Assessment and plan: --Aspiration pneumonia; patient is already on cefepime and vancomycin Status post Levaquin, aspiration precautions, PEG feeds, Supportive care, follow-up chest x-ray tomorrow, pulmonary consult Please head end of the bed --Chronic respiratory failure; h/o tracheostomy on T piece Continue oxygen nebulizers supportive care Chest x-ray, patient has copious secretions --Generalized edema and fluid overload; IV diuretics Monitor input output --Type 2 diabetes mellitus uncontrolled /Hyperglycemia blood sugars are well controlled, continue Accu-Chek sliding scale coverage and tube feeding ,long acting insulin --Toxic metabolic encephalopathy; present on admission Multifactorial, neuro checks and supportive care --History of cardiac arrest in the past; anoxic encephalopathy Supportive care --Sepsis/possible UTI empiric antibiotics, and cultures positive for Yeast. Start Diflucan for total 10 days --Anemia; closely monitor H&H and transfuse as needed --Elevated troponins; probably nonspecific Closely monitor, cardiology consult if needed --DVT prophylaxis; Lovenox Full CODE STATUS Follow-up chest x-ray, Discharge planning; DC and transfer back to SNF when medically stable Monitor closely and adjust the management as needed Plan of care is reviewed with the patient's and his nurse Disposition>Possible discharge back to SNF in 1-2 days History Interval history: Patient seen and examined ,medical records reviewed Patient non communicative, s/p tracheostomy Vital reviewed Hospitalist Physical - Constitutional Vitals: Temp Pulse Resp BP Pulse Ox 98.6 F 95 H 18 125/52 97 10/05/18 07:47 10/05/18 09:53 10/05/18 08:35 10/05/18 09:53 10/05/18 08:22 General appearance: Present: no acute distress, well-nourished, obese, other (tracheostomy on T piece) - EENT Eyes: Present: PERRL, EOM intact - Neck Neck: Present: supple, normal ROM - Respiratory Respiratory effort: normal Respiratory: bilateral: diminished, rhonchi, negative: rales, wheezing - Cardiovascular Rhythm: regular Heart Sounds: Present: S1 & S2 - Extremities Extremities: no ischemia, pulses symmetrical Extremity abnormal: cyanosis - Abdominal General gastrointestinal: soft, non-tender, non-distended, normal bowel sounds - Integumentary Integumentary: Present: clear, warm - Psychiatric Psychiatric: appropriate mood/affect, cooperative - Neurologic Neurologic: CNII-XII intact, moves all extremities Results - Labs CBC & Chem 7: 10/03/18 00:29 10/02/18 08:45 Labs: Laboratory Last Values WBC 10.7 K/mm3 (4.5-11.0) 10/03/18 00:29 RBC 2.87 M/mm3 (3.65-5.03) L 10/03/18 00:29 Hgb 7.6 gm/dl (11.8-15.2) L 10/03/18 00:29 Hct 23.0 % (35.5-45.6) L 10/03/18 00:29 MCV 80 fl (84-94) L 10/03/18 00: MCH 26 pg (28-32) L 10/03/18 00: MCHC 33 % (32-34) 10/03/18 00: RDW 20.5 % (13.2-15.2) H 10/03/18 00:29 Plt Count 274 K/mm3 (140-440) 10/03/18 00:29 Lymph % (Auto) 11.6 % (13.4-35.0) L 10/03/18 00:29 [place] % (Auto) 7.5 % (0.0-7.3) H 10/03/18 00:29 Eos % (Auto) 2.4 % (0.0-4.3) 10/03/18 00: Baso % (Auto) 0.5 % (0.0-1.8) 10/03/18 00: Lymph # 1.2 K/mm3 (1.2-5.4) 10/03/18 00:29 [place] # 0.8 K/mm3 (0.0-0.8) 10/03/18 00:29 Eos # 0.3 K/mm3 (0.0-0.4) 10/03/18 00:29 Baso # 0.1 K/mm3 (0.0-0.1) 10/03/18 00:29 Seg Neutrophils % 78.0 % (40.0-70.0) H 10/03/18 00:29 Seg Neutrophils # 8.4 K/mm3 (1.8-7.7) H 10/03/18 00:29 POC ABG pH 7.525 (7.35-7.45) H 10/03/18 04:37 POC ABG pCO2 < 30 (35-45) L 10/03/18 04:37 POC ABG pO2 63 (80-105) L 10/03/18 04:37 POC ABG HCO3 23.4 (22-26 mml/L) 10/03/18 04:37 POC ABG Total CO2 24 (23-27mmol/L) 10/03/18 04:37 POC ABG O2 Sat 94 10/03/18 04:37 POC ABG Base Excess 1 ((-2) - (+3)mmol/L) 10/03/18 04:37 40 % 10/03/18 04:37 Sodium 140 mmol/L (137-145) 10/02/18 08:45 Potassium 3.7 mmol/L (3.6-5.0) D 10/02/18 08:45 Chloride 105.1 mmol/L (98-107) 10/02/18 08:45 Carbon Dioxide 24 mmol/L (22-30) 10/02/18 08:45 15 mmol/L 10/02/18 08:45 BUN 29 mg/dL (9-20) H 10/02/18 08:45 1.0 mg/dL (0.8-1.5) 10/02/18 08:45 Estimated GFR > 60 ml/min 10/02/18 08:45 29 % 10/02/18 08:45 Glucose 229 mg/dL (75-100) H 10/02/18 08:45 POC Glucose 107 (70-105) H 10/05/18 06:18 Lactic Acid 1.20 mmol/L (0.7-2.0) 10/03/18 15:26 Calcium 7.9 mg/dL (8.4-10.2) L 10/02/18 08:45 Phosphorus 3.40 mg/dL (2.5-4.5) 10/02/18 08:45 Magnesium 1.80 mg/dL (1.7-2.3) 10/02/18 08:45 0.20 mg/dL (0.1-1.2) 09/27/18 23:00 AST 78 units/L (5-40) H 09/27/18 23:00 ALT 107 units/L (7-56) H 09/27/18 23:00 178 units/L (35-129) H 09/27/18 23:00 301 units/L (55-170) H 09/28/18 12:11 CK-MB (CK-2) 3.1 ng/mL (0.0-4.0) 09/28/18 12:11 CK-MB (CK-2) Rel Index 1.0 (0-4) 09/28/18 12:11 0.294 ng/mL (0.00-0.029) H* D 09/28/18 12:11 14.70 mg/dL (0.00-1.30) H 10/03/18 15:26 6.8 g/dL (6.3-8.2) 09/27/18 23:00 1.9 g/dL (3.9-5) L 09/27/18 23:00 0.4 % 09/27/18 23:00 Triglycerides 61 mg/dL (2-149) 09/27/18 23:00 Cholesterol 56 mg/dL (50-199) 09/27/18 23:00 25 mg/dL (50-130) L 09/27/18 23:00 19 mg/dL (40-59) L 09/27/18 23:00 2.94 % 09/27/18 23:00 Yellow (Yellow) 09/28/18 01:05 Cloudy (Clear) 09/28/18 01:05 7.0 (5.0-7.0) 09/28/18 01:05 Ur Specific [place] 1.017 (1.003-1.030) 09/28/18 01:05 100 mg/dl mg/dL (Negative) 09/28/18 01:05 150 mg/dL (Negative) 09/28/18 01:05 Neg mg/dL (Negative) 09/28/18 01:05 Sm (Negative) 09/28/18 01:05 Neg (Negative) 09/28/18 01:05 Neg (Negative) 09/28/18 01:05 < 2.0 mg/dL (<2.0) 09/28/18 01:05 Ur Leukocyte Esterase Lg (Negative) 09/28/18 01:05 63.0 /HPF (0.0-6.0) H 09/28/18 01:05 182.0 /HPF (0.0-6.0) 09/28/18 01:05 U Epithel Cells (Auto) < 1.0 /HPF (0-13.0) 09/28/18 01:05 2+ /HPF (Negative) 09/28/18 01:05 Few /HPF 09/28/18 01:05 3+ /HPF 09/28/18 01:05 Random Vancomycin 23.4 ug/mL (0-40.0) 10/03/18 19:57 Active Medications - Current Medications Current Medications: Generic Name Dose Route Start Last Admin Trade Name Freq PRN Reason Stop Dose Admin Acetaminophen 650 mg 09/28/18 03:16 10/05/18 00:04 Tylenol DC 650 mg Q4H PRN Administration Fever >101 Albuterol 2.5 mg 09/28/18 03:14 Proventil IH Q6HRT PRN Shortness Of Breath Albuterol 2.5 mg 10/01/18 20:00 10/05/18 08:17 Proventil IH 2.5 mg Q6HRT LENCHO Administration Amantadine HCl 100 mg 09/28/18 10:00 10/05/18 09:51 Symmetrel FEEDTUBE 100 mg DAILY LENCHO Administration Amlodipine Besylate 5 mg 09/28/18 10:00 10/05/18 09:51 Norvasc FEEDTUBE 5 mg DAILY LENCHO Administration Lipase/Protease/Amylase 1 each 09/28/18 15:34 Pancreazgenia Alas 10,500 Unit FEEDTUBE PRN PRN For Clogged Feeding Tube Ascorbic Acid 500 mg 09/28/18 10:00 10/05/18 09:52 Vitamin C FEEDTUBE 500 mg QDAY LENCHO Administration Aspirin 81 mg 09/29/18 10:00 10/05/18 09:51 Baby Aspirin FEEDTUBE 81 mg QDAY LENCHO Administration Atorvastatin Calcium 40 mg 09/28/18 22:00 10/04/18 22:03 Lipitor FEEDTUBE 40 mg QHS LENCHO Administration Bisacodyl 10 mg 09/28/18 03:34 Dulcolax DC QDAY PRN Constipation Dextrose 50 ml 09/28/18 03:11 10/01/18 18:14 D50w (25gm) Syringe IV 50 ml PRN PRN Administration Hypoglycemia Docusate Sodium 100 mg 09/28/18 03:34 Colace FEEDTUBE QDAY PRN Constipation Famotidine 20 mg 10/03/18 16:00 10/05/18 09:52 Pepcid PO 20 mg QDAY LENCHO Administration Ferrous Sulfate 308 mg 09/28/18 10:00 10/05/18 09:50 Ferrous Sulfate FEEDTUBE 308 mg DAILY LENCHO Administration Fluconazole 100 mg 10/04/18 10:00 10/05/18 09:54 Diflucan PO 100 mg QDAY LENCHO Administration Furosemide 40 mg 10/02/18 18:00 10/05/18 05:10 Lasix IV 40 mg 0600,1800 LENCHO Administration Glycopyrrolate 2 mg 09/28/18 06:00 10/05/18 05:10 Robinul FEEDTUBE 2 mg Q8H LENCHO Administration Heparin Sodium (Porcine) 5,000 unit 09/28/18 10:00 10/05/18 10:02 Heparin SUB-Q 5,000 unit Q12HR LENCHO Administration Hydralazine HCl 10 mg 10/01/18 15:51 10/02/18 05:45 Apresoline IV 10 mg Q4HR PRN Administration Hypertension Cefepime HCl 2 gm in 100 mls @ 200 mls/hr 09/27/18 23:00 10/05/18 09:50 Maxipime/Ns 2 Gm/100 Ml IV 10/05/18 22:59 200 mls/hr Q12HR LENCHO Administration Protocol Vancomycin HCl 1,250 mg/ 275 mls @ 166.667 mls/hr 10/05/18 09:00 10/05/18 09:01 Sodium Chloride IV 10/05/18 23:59 166.667 mls/hr Q36H LENCHO Administration Insulin Glargine 40 units 09/28/18 22:00 10/04/18 22:19 Lantus SUB-Q Not Given QHS [facility] Insulin Human Lispro 8 unit 09/28/18 16:30 10/05/18 07:45 Humalog SUB-Q Not Given AC [facility] Insulin Human Regular 0 units 10/01/18 12:00 10/05/18 07:30 Humulin R SUB-Q Not Given Q6HR [facility] Protocol Lacosamide 100 mg 09/28/18 10:00 10/05/18 09:52 Vimpat PO 100 mg Q12HR LENCHO Administration Lisinopril 10 mg 09/29/18 10:00 10/05/18 09:53 Zestril FEEDTUBE 10 mg QDAY LENCHO Administration Metoclopramide HCl 10 mg 10/02/18 23:57 10/03/18 00:59 Reglan IV 10 mg Q6H PRN Administration Nausea And Vomiting Ondansetron HCl 4 mg 09/28/18 03:17 10/02/18 21:47 Zofran IV 4 mg Q8H PRN Administration Nausea And Vomiting Simple Syrup 15 ml 09/28/18 15:34 09/29/18 04:50 Simple Syrup FEEDTUBE 15 ml PRN PRN Administration Hypoglycemia Simple Syrup 30 ml 09/28/18 15:34 Simple Syrup FEEDTUBE PRN PRN Hypoglycemia Sodium Bicarbonate 325 mg 09/28/18 15:34 Sodium Bicarbonate FEEDTUBE PRN PRN For Clogged Feeding Tube Sucralfate 1 gm 09/28/18 04:00 10/05/18 05:10 Carafate FEEDTUBE 1 gm Q8H LENCHO Administration Tamsulosin HCl 0.4 mg 09/29/18 10:00 10/05/18 09:54 Flomax PO 0.4 mg QDAY LENCHO Administration Nutrition/Malnutrition Assess - Dietary Evaluation Nutrition/Malnutrition Findings: Nutrition Notes Start: 09/28/18 15:13 Freq: Status: Active Protocol: Document 09/30/18 16:07 RM (Rec: 09/30/18 16:10 RM [id number]) Nutrition Notes Initial or Follow up Reassessment Current Diagnosis Diabetes,Sepsis,Hypertension, Stroke,Hyperlipidemia Other Pertinent Diagnosis Multiple wounds, Seizure disorder, Dysphagia, encephalopathy,UTI, PEG Current Diet Glucerna 1.2 at 65 ml/hr Labs/Tests Reviewed Pertinent Medications Solu-Medrol,Propofol at 8.8 ml /hr (232 kcal) Height 5 ft 7 in Weight 90.3 kg [place] Body Weight (kg) 67.27 BMI 31.1 Weight change and time frame current wt obtained from [facility] Subjective/Other Information Observed Glucerna infusing at goal rate. Per nurse pt is tolerating TF. Percent of energy/protein needs met: 98%/96% Burn Absent Trauma Absent #1 Nutrition Diagnosis Inadequate oral intake Diagnosis Progress(for reassessment Continues documentation) Is patient on ventilator? No Is Patient Ambulatory and/or Out of Bed No REE-([facility]-confined to bed) 1904.352 Calculation Used for Recommendations [facility] Additional Notes Protein Needs: 98-123g (1.2-1. 5g/kg) Fluid Needs: 1 ml/kcal Nutrition Intervention Nutrition Support: Glucerna 1.2 at 65 ml/hr. Water flush of 100 mls q 4 hrs . Kcal 1,872 Protein (gm) 94 Fluid (mL) 1,256 Goal #1 TF tolerance Goal #2 Continue to meet at least 75% of calorie and protein needs via TF Anticipated Discharge Needs: TF Follow-Up By: 10/07/18 Additional Comments Follow for TF tolerance
--- NOTE | 2018-10-05 18:25 | Progress Note ---
Assessment and Plan Patient is resting on T-tube FIO2 of 40%. Oxygen saturation of 99%. Patient is not responding to verbal stimuli. No acute respiratory distress at rest. Patient is afebrile. BP 152/55. - Patient Problems (1) HCAP (healthcare-associated pneumonia) Current Visit: Yes Status: Acute Plan to address problem: Patient is on cefepime, vancomycin, and fluconazole. Continue FIO2 of 40% on T-tube. (2) Acute and chronic respiratory failure Current Visit: No Status: Acute Qualifiers: Respiratory failure complication: hypoxia Qualified Code(s): J96.21 - Acute and chronic respiratory failure with hypoxia Plan to address problem: S/P tracheostomy. T-tube FIO2 of 40%. Albuterol aerosol treatment q 6 hours Continue S/C heparin. Continue famotidine Patient is on cefepime, vancomycin, and fluconazole. (3) History of tracheostomy Current Visit: Yes Status: Chronic Plan to address problem: Tracheostomy care by respiratory therapy. Subjective Date of service: 10/05/18 Principal diagnosis: Ac on ch hypoxemic resp failure; HAP; Urinary tract infection; DM II Interval history: Patient is resting on T-tube FIO2 of 40%. Oxygen saturation of 99%. Patient is not responding to verbal stimuli. No acute respiratory distress at rest. Patient is afebrile. BP 152/55. Objective Vital Signs - 12hr 10/05/18 10/05/18 10/05/18 07:47 08:18 08:22 Temperature 98.6 F Pulse Rate 93 H Pulse Rate [ 89 Anterior Bilateral Throughout] Pulse Rate [ Apical] Pulse Rate [ Left Dorsalis Pedis] Pulse Rate [ Left Radial] Pulse Rate [ Right Dorsalis Pedis] Pulse Rate [ Right Radial] Respiratory 20 Rate Respiratory 18 Rate [Anterior Bilateral Throughout] Blood Pressure 124/45 O2 Sat by Pulse 100 97 Oximetry O2 Sat by Pulse 97 Oximetry [ Assessment] 10/05/18 10/05/18 10/05/18 08:35 09:47 09:51 Temperature Pulse Rate 95 H 95 H Pulse Rate [ 88 Anterior Bilateral Throughout] Pulse Rate [ Apical] Pulse Rate [ Left Dorsalis Pedis] Pulse Rate [ Left Radial] Pulse Rate [ Right Dorsalis Pedis] Pulse Rate [ Right Radial] Respiratory Rate Respiratory 18 Rate [Anterior Bilateral Throughout] Blood Pressure 125/52 125/52 O2 Sat by Pulse 99 Oximetry O2 Sat by Pulse Oximetry [ Assessment] 10/05/18 10/05/18 10/05/18 09:53 10:00 11:47 Temperature 98.6 F Pulse Rate 95 H 93 H Pulse Rate [ Anterior Bilateral Throughout] Pulse Rate [ 95 H Apical] Pulse Rate [ 95 H Left Dorsalis Pedis] Pulse Rate [ 95 H Left Radial] Pulse Rate [ 95 H Right Dorsalis Pedis] Pulse Rate [ 95 H Right Radial] Respiratory 21 20 Rate Respiratory Rate [Anterior Bilateral Throughout] Blood Pressure 125/52 146/56 O2 Sat by Pulse 98 100 Oximetry O2 Sat by Pulse Oximetry [ Assessment] 10/05/18 10/05/18 10/05/18 12:00 12:57 14:50 Temperature Pulse Rate 92 H 91 H Pulse Rate [ 91 H Anterior Bilateral Throughout] Pulse Rate [ Apical] Pulse Rate [ Left Dorsalis Pedis] Pulse Rate [ Left Radial] Pulse Rate [ Right Dorsalis Pedis] Pulse Rate [ Right Radial] Respiratory Rate Respiratory 18 Rate [Anterior Bilateral Throughout] Blood Pressure O2 Sat by Pulse Oximetry O2 Sat by Pulse Oximetry [ Assessment] 10/05/18 10/05/18 10/05/18 14:55 15:05 16:57 Temperature 98.6 F Pulse Rate 91 H Pulse Rate [ 87 Anterior Bilateral Throughout] Pulse Rate [ Apical] Pulse Rate [ Left Dorsalis Pedis] Pulse Rate [ Left Radial] Pulse Rate [ Right Dorsalis Pedis] Pulse Rate [ Right Radial] Respiratory 18 Rate Respiratory 20 Rate [Anterior Bilateral Throughout] Blood Pressure 152/55 O2 Sat by Pulse 99 Oximetry O2 Sat by Pulse 99 Oximetry [ Assessment] 10/05/18 17:00 Temperature Pulse Rate 92 H Pulse Rate [ Anterior Bilateral Throughout] Pulse Rate [ Apical] Pulse Rate [ Left Dorsalis Pedis] Pulse Rate [ Left Radial] Pulse Rate [ Right Dorsalis Pedis] Pulse Rate [ Right Radial] Respiratory Rate Respiratory Rate [Anterior Bilateral Throughout] Blood Pressure O2 Sat by Pulse Oximetry O2 Sat by Pulse Oximetry [ Assessment] Constitutional: no acute distress, asleep, other (elderly looking AAM, normocephalic with mildly increased resp effort at rest) Eyes: non-icteric ENT: oropharynx moist Neck: supple, no lymphadenopathy, no JVD, other (midline tracheostomy tube) Effort: mildly labored Ascultation: Bilateral: diminished breath sounds, rhonchi Percussion: Bilateral: not dull Cardiovascular: regular rate and rhythm Gastrointestinal: normoactive bowel sounds, soft, non-tender, non-distended Integumentary: rash Extremities: no cyanosis, pulses normal, no ischemia or petechiae, edema (2+) Neurologic: unable to assess Psychiatric: other (encephalopathic) CBC and BMP: 10/03/18 00:29 10/02/18 08:45 ABG, PT/INR, D-dimer: ABG POC ABG pH 7.525 (7.35-7.45) H 10/03/18 04:37 POC ABG pCO2 < 30 (35-45) L 10/03/18 04:37 POC ABG pO2 63 (80-105) L 10/03/18 04:37 POC ABG HCO3 23.4 (22-26 mml/L) 10/03/18 04:37 POC ABG Total CO2 24 (23-27mmol/L) 10/03/18 04:37 POC ABG O2 Sat 94 10/03/18 04:37 Abnormal lab findings: Abnormal Labs 09/27/18 09/27/18 09/27/18 22:54 23:00 23:00 RBC 2.71 L Hgb 7.4 L Hct 22.0 L MCV 81 L MCH 27 L RDW 21.4 H Lymph % (Auto) [place] % (Auto) 13.8 H [place] # 1.3 H Seg Neutrophils % Seg Neutrophils # POC ABG pH POC ABG pCO2 POC ABG pO2 BUN 40 H Glucose 431 H POC Glucose 456 H Calcium AST 78 H ALT 107 H Alkaline Phosphatase 178 H Total Creatine Kinase Troponin T 0.407 H* C-Reactive Protein Albumin 1.9 L LDL Cholesterol Direct 25 L HDL Cholesterol 19 L Urine WBC (Auto) 09/27/18 09/28/18 09/28/18 23:34 01:05 02:43 RBC Hgb Hct MCV MCH RDW Lymph % (Auto) [place] % (Auto) [place] # Seg Neutrophils % Seg Neutrophils # POC ABG pH 7.525 H POC ABG pCO2 33.1 L POC ABG pO2 BUN Glucose POC Glucose 497 H Calcium AST ALT Alkaline Phosphatase Total Creatine Kinase Troponin T C-Reactive Protein Albumin LDL Cholesterol Direct HDL Cholesterol Urine WBC (Auto) 63.0 H 09/28/18 09/28/18 09/28/18 04:11 07:13 11:47 RBC Hgb Hct MCV MCH RDW Lymph % (Auto) [place] % (Auto) [place] # Seg Neutrophils % Seg Neutrophils # POC ABG pH POC ABG pCO2 POC ABG pO2 BUN Glucose POC Glucose 362 H 392 H 244 H Calcium AST ALT Alkaline Phosphatase Total Creatine Kinase Troponin T C-Reactive Protein Albumin LDL Cholesterol Direct HDL Cholesterol Urine WBC (Auto) 09/28/18 09/28/18 09/29/18 12:11 16:32 00:18 RBC Hgb Hct MCV MCH RDW Lymph % (Auto) [place] % (Auto) [place] # Seg Neutrophils % Seg Neutrophils # POC ABG pH POC ABG pCO2 POC ABG pO2 BUN Glucose POC Glucose 159 H 118 H Calcium AST ALT Alkaline Phosphatase Total Creatine Kinase 301 H Troponin T 0.294 H* D C-Reactive Protein Albumin LDL Cholesterol Direct HDL Cholesterol Urine WBC (Auto) 09/29/18 09/29/18 09/29/18 04:28 11:23 18:58 RBC Hgb Hct MCV MCH RDW Lymph % (Auto) [place] % (Auto) [place] # Seg Neutrophils % Seg Neutrophils # POC ABG pH POC ABG pCO2 POC ABG pO2 BUN Glucose POC Glucose 67 L 126 H 167 H Calcium AST ALT Alkaline Phosphatase Total Creatine Kinase Troponin T C-Reactive Protein Albumin LDL Cholesterol Direct HDL Cholesterol Urine WBC (Auto) 09/29/18 09/29/18 09/30/18 20:51 23:41 04:56 RBC Hgb Hct MCV MCH RDW Lymph % (Auto) [place] % (Auto) [place] # Seg Neutrophils % Seg Neutrophils # POC ABG pH POC ABG pCO2 POC ABG pO2 BUN Glucose POC Glucose 182 H 170 H 133 H Calcium AST ALT Alkaline Phosphatase Total Creatine Kinase Troponin T C-Reactive Protein Albumin LDL Cholesterol Direct HDL Cholesterol Urine WBC (Auto) 09/30/18 09/30/18 09/30/18 12:37 16:25 20:35 RBC Hgb Hct MCV MCH RDW Lymph % (Auto) [place] % (Auto) [place] # Seg Neutrophils % Seg Neutrophils # POC ABG pH POC ABG pCO2 POC ABG pO2 BUN Glucose POC Glucose 182 H 185 H 227 H Calcium AST ALT Alkaline Phosphatase Total Creatine Kinase Troponin T C-Reactive Protein Albumin LDL Cholesterol Direct HDL Cholesterol Urine WBC (Auto) 09/30/18 10/01/18 10/01/18 23:56 04:05 13:22 RBC Hgb Hct MCV MCH RDW Lymph % (Auto) [place] % (Auto) [place] # Seg Neutrophils % Seg Neutrophils # POC ABG pH POC ABG pCO2 POC ABG pO2 BUN Glucose POC Glucose 226 H 182 H 122 H Calcium AST ALT Alkaline Phosphatase Total Creatine Kinase Troponin T C-Reactive Protein Albumin LDL Cholesterol Direct HDL Cholesterol Urine WBC (Auto) 10/01/18 10/01/18 10/01/18 17:58 18:49 23:42 RBC Hgb Hct MCV MCH RDW Lymph % (Auto) [place] % (Auto) [place] # Seg Neutrophils % Seg Neutrophils # POC ABG pH POC ABG pCO2 POC ABG pO2 BUN Glucose POC Glucose 62 L 140 H 172 H Calcium AST ALT Alkaline Phosphatase Total Creatine Kinase Troponin T C-Reactive Protein Albumin LDL Cholesterol Direct HDL Cholesterol Urine WBC (Auto) 10/02/18 10/02/18 10/02/18 06:25 08:45 08:45 RBC 2.65 L Hgb 7.0 L Hct 21.2 L MCV 80 L MCH 26 L RDW 21.0 H Lymph % (Auto) [place] % (Auto) 9.7 H [place]ink # 1.0 H Seg Neutrophils % 71.9 H Seg Neutrophils # POC ABG pH POC ABG pCO2 POC ABG pO2 BUN 29 H Glucose 229 H POC Glucose 226 H Calcium 7.9 L AST ALT Alkaline Phosphatase Total Creatine Kinase Troponin T C-Reactive Protein Albumin LDL Cholesterol Direct HDL Cholesterol Urine WBC (Auto) 10/02/18 10/02/18 10/02/18 12:06 17:42 21:02 RBC Hgb Hct MCV MCH RDW Lymph % (Auto) [place] % (Auto) [place] # Seg Neutrophils % Seg Neutrophils # POC ABG pH POC ABG pCO2 POC ABG pO2 BUN Glucose POC Glucose 217 H 216 H 116 H Calcium AST ALT Alkaline Phosphatase Total Creatine Kinase Troponin T C-Reactive Protein Albumin LDL Cholesterol Direct HDL Cholesterol Urine WBC (Auto) 10/03/18 10/03/18 10/03/18 00:29 00:49 04:37 RBC 2.87 L Hgb 7.6 L Hct 23.0 L MCV 80 L MCH 26 L RDW 20.5 H Lymph % (Auto) 11.6 L [place] % (Auto) 7.5 H [place]ink # Seg Neutrophils % 78.0 H Seg Neutrophils # 8.4 H POC ABG pH 7.525 H POC ABG pCO2 < 30 L POC ABG pO2 63 L BUN Glucose POC Glucose 117 H Calcium AST ALT Alkaline Phosphatase Total Creatine Kinase Troponin T C-Reactive Protein Albumin LDL Cholesterol Direct HDL Cholesterol Urine WBC (Auto) 10/03/18 10/03/18 10/03/18 05:49 12:20 15:26 RBC Hgb Hct MCV MCH RDW Lymph % (Auto) [place] % (Auto) [place] # Seg Neutrophils % Seg Neutrophils # POC ABG pH POC ABG pCO2 POC ABG pO2 BUN Glucose POC Glucose 218 H 238 H Calcium AST ALT Alkaline Phosphatase Total Creatine Kinase Troponin T C-Reactive Protein 14.70 H Albumin LDL Cholesterol Direct HDL Cholesterol Urine WBC (Auto) 10/03/18 10/03/18 10/04/18 16:35 21:13 00:26 RBC Hgb Hct MCV MCH RDW Lymph % (Auto) [place] % (Auto) [place] # Seg Neutrophils % Seg Neutrophils # POC ABG pH POC ABG pCO2 POC ABG pO2 BUN Glucose POC Glucose 219 H 158 H 181 H Calcium AST ALT Alkaline Phosphatase Total Creatine Kinase Troponin T C-Reactive Protein Albumin LDL Cholesterol Direct HDL Cholesterol Urine WBC (Auto) 10/04/18 10/04/18 10/04/18 05:33 12:10 15:58 RBC Hgb Hct MCV MCH RDW Lymph % (Auto) [place] % (Auto) [place] # Seg Neutrophils % Seg Neutrophils # POC ABG pH POC ABG pCO2 POC ABG pO2 BUN Glucose POC Glucose 209 H 270 H 266 H Calcium AST ALT Alkaline Phosphatase Total Creatine Kinase Troponin T C-Reactive Protein Albumin LDL Cholesterol Direct HDL Cholesterol Urine WBC (Auto) 10/05/18 10/05/18 10/05/18 06:18 11:52 17:17 RBC Hgb Hct MCV MCH RDW Lymph % (Auto) [place] % (Auto) [place] # Seg Neutrophils % Seg Neutrophils # POC ABG pH POC ABG pCO2 POC ABG pO2 BUN Glucose POC Glucose 107 H 218 H 183 H Calcium AST ALT Alkaline Phosphatase Total Creatine Kinase Troponin T C-Reactive Protein Albumin LDL Cholesterol Direct HDL Cholesterol Urine WBC (Auto) Chest x-ray: report reviewed (Bilateral patchy infiltrates more on right upper lobe.), image reviewed Allied health notes reviewed: nursing
[2018-10-06] MEDS: TYLENOL PR PRN ×2 (00:51→16:03)
[2018-10-06] MEDS: HumuLIN R SUB-Q SCH ×4 (00:51→18:26)
[2018-10-06] MEDS: PROVENTIL IH SCH ×4 (01:50→19:04)
[2018-10-06] MEDS: LANTUS SUB-Q SCH (02:25)
[2018-10-06] MEDS: CARAFATE FEEDTUBE SCH ×3 (05:38→20:55)
[2018-10-06] MEDS: ROBINUL FEEDTUBE SCH ×3 (05:38→22:53)
[2018-10-06] MEDS: LASIX IV SCH ×2 (05:38→18:33)
[2018-10-06 06:55] LABS: Basophils # (Auto) 0.1 K/mm3 (0.0-0.1); Basophils % (Auto) 0.7 % (0.0-1.8); Eosinophils # (Auto) 0.5 K/mm3 (0.0-0.4); Eosinophils % (Auto) 4.2 % (0.0-4.3); Hemoglobin 6.4 gm/dl (11.8-15.2); Lymphocytes # (Auto) 1.9 K/mm3 (1.2-5.4); Lymphocytes % (Auto) 17.8 % (13.4-35.0); Mean Corpuscular HGB Conc 32 % (32-34); Mean Corpuscular Volume 80 fl (84-94); Monocytes # (Auto) 1.1 K/mm3 (0.0-0.8); Monocytes % (Auto) 10.4 % (0.0-7.3); Platelet Count 347 K/mm3 (140-440); Red Blood Count 2.46 M/mm3 (3.65-5.03)
[2018-10-06 07:22] LABS: Hematocrit 19.8 % (35.5-45.6); Red Cell Distribution Width 21.7 % (13.2-15.2)
[2018-10-06 07:40] LABS: Albumin 1.8 g/dL (3.9-5); Calcium 7.8 mg/dL (8.4-10.2)
[2018-10-06] MEDS: HumaLOG SUB-Q SCH ×3 (08:25→18:24)
--- NOTE | 2018-10-06 08:43 | Progress Note ---
Assessment and Plan Assessment and plan: --Anemia; hemoglobin 6.4, No evidence of bleeding Transfuse 1 unit PRBC, closely monitor H&H Stool for occult blood --Febrile illness; patient already has aspiration pneumonia on IV antibiotics MAXIMUM TEMPERATURE 101.0, and cultures Antibiotics and supportive care ID consult if needed --Aspiration pneumonia; patient is on cefepime and vancomycin Status post Levaquin, aspiration precautions, PEG feeds, Supportive care, follow-up chest x-ray tomorrow, pulmonary consult Elevate the head end of the bed --Chronic respiratory failure; h/o tracheostomy on T piece Continue oxygen nebulizers supportive care Chest x-ray, patient has copious secretions --Generalized edema and fluid overload; IV diuretics Monitor input output --Type 2 diabetes mellitus uncontrolled /Hyperglycemia blood sugars are well controlled, continue Accu-Chek sliding scale coverage and tube feeding ,long acting insulin --Toxic metabolic encephalopathy; present on admission Multifactorial, neuro checks and supportive care --History of cardiac arrest in the past; anoxic encephalopathy Supportive care --Sepsis/possible UTI empiric antibiotics, and cultures positive for Yeast. Start Diflucan for total 10 days --Anemia; closely monitor H&H and transfuse as needed --Elevated troponins; probably nonspecific Closely monitor, cardiology consult if needed --DVT prophylaxis; Lovenox Full CODE STATUS Follow-up chest x-ray, Discharge planning; DC and transfer back to SNF when medically stable Monitor closely and adjust the management as needed Plan of care is reviewed with the patient's and his nurse Disposition: Possible discharge back to SNF in 1-2 days History Interval history: Patient seen and examined, Overnight events noted Patient spiked fever, drop in H&H, No evidence of bleeding Status post tracheostomy on T piece, noncommunicative Encephalopathy, Vital signs reviewed Hospitalist Physical - Constitutional Vitals: Temp Pulse Resp BP Pulse Ox 100.1 F H 90 22 125/49 95 10/06/18 03:48 10/06/18 04:03 10/06/18 03:48 10/06/18 03:48 10/06/18 03:48 General appearance: Present: no acute distress, well-nourished, obese, other (tracheostomy on T piece) - EENT Eyes: Present: PERRL, EOM intact - Neck Neck: Present: supple - Respiratory Respiratory effort: normal Respiratory: bilateral: diminished, rhonchi, negative: rales, wheezing - Cardiovascular Rhythm: regular Heart Sounds: Present: S1 & S2 - Extremities Extremity abnormal: edema - Abdominal General gastrointestinal: soft, non-tender, non-distended, normal bowel sounds, other ( PEG tube in place) - Integumentary Integumentary: Present: clear, warm - Psychiatric Psychiatric: other (noncommunicative) - Neurologic Neurologic: other (encephalopathy) Results - Labs CBC & Chem 7: 10/06/18 06:01 10/06/18 06:01 Labs: Laboratory Last Values WBC 10.8 K/mm3 (4.5-11.0) 10/06/18 06:01 RBC 2.46 M/mm3 (3.65-5.03) L 10/06/18 06:01 Hgb 6.4 gm/dl (11.8-15.2) L 10/06/18 06:01 Hct 19.8 % (35.5-45.6) L* 10/06/18 06: MCV 80 fl (84-94) L 10/06/18 06:01 MCH 26 pg (28-32) L 10/06/18 06:01 MCHC 32 % (32-34) 10/06/18 06:01 RDW 21.7 % (13.2-15.2) H 10/06/18 06:01 Plt Count 347 K/mm3 (140-440) 10/06/18 06:01 Lymph % (Auto) 17.8 % (13.4-35.0) 10/06/18 06:01 [place] % (Auto) 10.4 % (0.0-7.3) H 10/06/18 06:01 Eos % (Auto) 4.2 % (0.0-4.3) 10/06/18 06:01 Baso % (Auto) 0.7 % (0.0-1.8) 10/06/18 06:01 Lymph # 1.9 K/mm3 (1.2-5.4) 10/06/18 06:01 [place] # 1.1 K/mm3 (0.0-0.8) H 10/06/18 06:01 Eos # 0.5 K/mm3 (0.0-0.4) H 10/06/18 06:01 Baso # 0.1 K/mm3 (0.0-0.1) 10/06/18 06:01 Seg Neutrophils % 66.9 % (40.0-70.0) 10/06/18 06:01 Seg Neutrophils # 7.2 K/mm3 (1.8-7.7) 10/06/18 06:01 POC ABG pH 7.525 (7.35-7.45) H 10/03/18 04:37 POC ABG pCO2 < 30 (35-45) L 10/03/18 04:37 POC ABG pO2 63 (80-105) L 10/03/18 04:37 POC ABG HCO3 23.4 (22-26 mml/L) 10/03/18 04:37 POC ABG Total CO2 24 (23-27mmol/L) 10/03/18 04:37 POC ABG O2 Sat 94 10/03/18 04:37 POC ABG Base Excess 1 ((-2) - (+3)mmol/L) 10/03/18 04:37 40 % 10/03/18 04:37 Sodium 147 mmol/L (137-145) H 10/06/18 06:01 Potassium 3.2 mmol/L (3.6-5.0) L 10/06/18 06:01 Chloride 107.7 mmol/L (98-107) H 10/06/18 06:01 Carbon Dioxide 27 mmol/L (22-30) 10/06/18 06:01 16 mmol/L 10/06/18 06:01 BUN 37 mg/dL (9-20) H 10/06/18 06:01 1.4 mg/dL (0.8-1.5) 10/06/18 06:01 Estimated GFR 59 ml/min 10/06/18 06:01 26 % 10/06/18 06:01 Glucose 153 mg/dL (75-100) H 10/06/18 06:01 POC Glucose 171 (70-105) H 10/06/18 06:10 Lactic Acid 1.20 mmol/L (0.7-2.0) 10/03/18 15:26 Calcium 7.8 mg/dL (8.4-10.2) L 10/06/18 06:01 Phosphorus 3.40 mg/dL (2.5-4.5) 10/02/18 08:45 Magnesium 2.00 mg/dL (1.7-2.3) 10/06/18 06:01 0.30 mg/dL (0.1-1.2) 10/06/18 06:01 AST 52 units/L (5-40) H 10/06/18 06:01 ALT 53 units/L (7-56) 10/06/18 06:01 153 units/L (35-129) H 10/06/18 06:01 301 units/L (55-170) H 09/28/18 12:11 CK-MB (CK-2) 3.1 ng/mL (0.0-4.0) 09/28/18 12:11 CK-MB (CK-2) Rel Index 1.0 (0-4) 09/28/18 12:11 0.294 ng/mL (0.00-0.029) H* D 09/28/18 12:11 14.70 mg/dL (0.00-1.30) H 10/03/18 15:26 5.9 g/dL (6.3-8.2) L 10/06/18 06:01 1.8 g/dL (3.9-5) L 10/06/18 06:01 0.4 % 10/06/18 06:01 Triglycerides 61 mg/dL (2-149) 09/27/18 23:00 Cholesterol 56 mg/dL (50-199) 09/27/18 23:00 25 mg/dL (50-130) L 09/27/18 23:00 19 mg/dL (40-59) L 09/27/18 23:00 2.94 % 09/27/18 23:00 Yellow (Yellow) 09/28/18 01:05 Cloudy (Clear) 09/28/18 01:05 7.0 (5.0-7.0) 09/28/18 01:05 Ur Specific [place] 1.017 (1.003-1.030) 09/28/18 01:05 100 mg/dl mg/dL (Negative) 09/28/18 01:05 150 mg/dL (Negative) 09/28/18 01:05 Neg mg/dL (Negative) 09/28/18 01:05 Sm (Negative) 09/28/18 01:05 Neg (Negative) 09/28/18 01:05 Neg (Negative) 09/28/18 01:05 < 2.0 mg/dL (<2.0) 09/28/18 01:05 Ur Leukocyte Esterase Lg (Negative) 09/28/18 01:05 63.0 /HPF (0.0-6.0) H 09/28/18 01:05 182.0 /HPF (0.0-6.0) 09/28/18 01:05 U Epithel Cells (Auto) < 1.0 /HPF (0-13.0) 09/28/18 01:05 2+ /HPF (Negative) 09/28/18 01:05 Few /HPF 09/28/18 01:05 3+ /HPF 09/28/18 01:05 Random Vancomycin 23.4 ug/mL (0-40.0) 10/03/18 19:57 Active Medications - Current Medications Current Medications: Generic Name Dose Route Start Last Admin Trade Name Freq PRN Reason Stop Dose Admin Acetaminophen 650 mg 09/28/18 03:16 10/06/18 00:51 Tylenol [place] 650 mg Q4H PRN Administration Fever >101 Albuterol 2.5 mg 09/28/18 03:14 Proventil IH Q6HRT PRN Shortness Of Breath Albuterol 2.5 mg 10/01/18 20:00 10/06/18 01:50 Proventil IH 2.5 mg Q6HRT LENCHO Administration Amantadine HCl 100 mg 09/28/18 10:00 10/05/18 09:51 Symmetrel FEEDTUBE 100 mg DAILY LENCHO Administration Amlodipine Besylate 5 mg 09/28/18 10:00 10/05/18 09:51 Norvasc FEEDTUBE 5 mg DAILY LENCHO Administration Lipase/Protease/Amylase 1 each 09/28/18 15:[address] 10,500 Unit FEEDTUBE PRN PRN For Clogged Feeding Tube Ascorbic Acid 500 mg 09/28/18 10:00 10/05/18 09:52 Vitamin C FEEDTUBE 500 mg QDAY LENCHO Administration Aspirin 81 mg 09/29/18 10:00 10/05/18 09:51 Baby Aspirin FEEDTUBE 81 mg QDAY LENCHO Administration Atorvastatin Calcium 40 mg 09/28/18 22:00 10/05/18 21:02 Lipitor FEEDTUBE 40 mg QHS LENCHO Administration Bisacodyl 10 mg 09/28/18 03:34 Dulcolax VT QDAY PRN Constipation Dextrose 50 ml 09/28/18 03:11 10/01/18 18:14 D50w (25gm) Syringe IV 50 ml PRN PRN Administration Hypoglycemia Docusate Sodium 100 mg 09/28/18 03:34 Colace FEEDTUBE QDAY PRN Constipation Famotidine 20 mg 10/03/18 16:00 10/05/18 09:52 Pepcid PO 20 mg QDAY LENCHO Administration Ferrous Sulfate 308 mg 09/28/18 10:00 10/05/18 09:50 Ferrous Sulfate FEEDTUBE 308 mg DAILY LENCHO Administration Fluconazole 100 mg 10/04/18 10:00 10/05/18 09:54 Diflucan PO 100 mg QDAY LENCHO Administration Furosemide 40 mg 10/02/18 18:00 10/06/18 05:38 Lasix IV 40 mg 0600,1800 LENCHO Administration Glycopyrrolate 2 mg 09/28/18 06:00 10/06/18 05:38 Robinul FEEDTUBE 2 mg Q8H LENCHO Administration Heparin Sodium (Porcine) 5,000 unit 09/28/18 10:00 10/05/18 21:02 Heparin SUB-Q 5,000 unit Q12HR LENCHO Administration Hydralazine HCl 10 mg 10/01/18 15:51 10/02/18 05:45 Apresoline IV 10 mg Q4HR PRN Administration Hypertension Insulin Glargine 40 units 09/28/18 22:00 10/06/18 02:25 Lantus SUB-Q Not Given QHS LENCHO Insulin Human Lispro 8 unit 09/28/18 16:30 10/06/18 08:25 Humalog SUB-Q 8 unit AC LENCHO Administration Insulin Human Regular 0 units 10/01/18 12:00 10/06/18 06:09 Humulin R SUB-Q 2 units Q6HR LENCHO Administration Protocol Lacosamide 100 mg 09/28/18 10:00 10/05/18 21:02 Vimpat PO 100 mg Q12HR LENCHO Administration Lisinopril 10 mg 09/29/18 10:00 10/05/18 09:53 Zestril FEEDTUBE 10 mg QDAY LENCHO Administration Metoclopramide HCl 10 mg 10/02/18 23:57 10/03/18 00:59 Reglan IV 10 mg Q6H PRN Administration Nausea And Vomiting Ondansetron HCl 4 mg 09/28/18 03:17 10/02/18 21:47 Zofran IV 4 mg Q8H PRN Administration Nausea And Vomiting Simple Syrup 15 ml 09/28/18 15:34 09/29/18 04:50 Simple Syrup FEEDTUBE 15 ml PRN PRN Administration Hypoglycemia Simple Syrup 30 ml 09/28/18 15:34 Simple Syrup FEEDTUBE PRN PRN Hypoglycemia Sodium Bicarbonate 325 mg 09/28/18 15:34 Sodium Bicarbonate FEEDTUBE PRN PRN For Clogged Feeding Tube Sucralfate 1 gm 09/28/18 04:00 10/06/18 05:38 Carafate FEEDTUBE 1 gm Q8H LENCHO Administration Tamsulosin HCl 0.4 mg 09/29/18 10:00 10/05/18 09:54 Flomax PO 0.4 mg QDAY LENCHO Administration Nutrition/Malnutrition Assess - Dietary Evaluation Nutrition/Malnutrition Findings: Nutrition Notes Start: 09/28/18 15:13 Freq: Status: Active Protocol: Document 09/30/18 16:07 RM (Rec: 09/30/18 16:10 RM [email or web address]) Nutrition Notes Initial or Follow up Reassessment Current Diagnosis Diabetes,Sepsis,Hypertension, Stroke,Hyperlipidemia Other Pertinent Diagnosis Multiple wounds, Seizure disorder, Dysphagia, encephalopathy,UTI, PEG Current Diet Glucerna 1.2 at 65 ml/hr Labs/Tests Reviewed Pertinent Medications Solu-Medrol,Propofol at 8.8 ml /hr (232 kcal) Height 5 ft 7 in Weight 90.3 kg [place] Body Weight (kg) 67.27 BMI 31.1 Weight change and time frame current wt obtained from [facility] Subjective/Other Information Observed Glucerna infusing at goal rate. Per nurse pt is tolerating TF. Percent of energy/protein needs met: 98%/96% Burn Absent Trauma Absent #1 Nutrition Diagnosis Inadequate oral intake Diagnosis Progress(for reassessment Continues documentation) Is patient on ventilator? No Is Patient Ambulatory and/or Out of Bed No REE-([facility]-confined to bed) 9667.352 Calculation Used for Recommendations Lamar-St Jeor Additional Notes Protein Needs: 98-123g (1.2-1. 5g/kg) Fluid Needs: 1 ml/kcal Nutrition Intervention Nutrition Support: Glucerna 1.2 at 65 ml/hr. Water flush of 100 mls q 4 hrs . Kcal 1,872 Protein (gm) 94 Fluid (mL) 1,256 Goal #1 TF tolerance Goal #2 Continue to meet at least 75% of calorie and protein needs via TF Anticipated Discharge Needs: TF Follow-Up By: 10/07/18 Additional Comments Follow for TF tolerance
[2018-10-06] MEDS: NORVASC FEEDTUBE SCH (10:02)
[2018-10-06] MEDS: PEPCID PO SCH (10:02)
[2018-10-06] MEDS: VITAMIN C FEEDTUBE SCH (10:04)
[2018-10-06] MEDS: FERROUS SULFATE FEEDTUBE SCH (10:04)
[2018-10-06] MEDS: ZESTRIL FEEDTUBE SCH (10:05)
[2018-10-06] MEDS: FLOMAX PO SCH (10:05)
[2018-10-06] MEDS: VIMPAT PO SCH ×2 (10:05→22:53)
[2018-10-06] MEDS: BABY ASPIRIN FEEDTUBE SCH (10:05)
[2018-10-06] MEDS: DIFLUCAN PO SCH (10:05)
[2018-10-06] MEDS: HEPARIN SUB-Q SCH ×2 (10:06→22:54)
[2018-10-06] MEDS: SYMMETREL FEEDTUBE SCH (10:06)
[2018-10-06] MEDS ORDERED: POTASSIUM CHLORIDE FEEDTUBE NR (10:26)
[2018-10-06] MEDS ORDERED: NACL 0.9% 500 ML 500 ML IV NR (10:30)
--- NOTE | 2018-10-06 14:49 | Progress Note ---
Assessment and Plan Patient is resting on T-tube FIO2 of 30%. Oxygen saturation of 98%. Patient is not responding to verbal stimuli. No acute respiratory distress at rest. Patient is Running low grade temp. BP 131/63. - Patient Problems (1) HCAP (healthcare-associated pneumonia) Current Visit: Yes Status: Acute Plan to address problem: Patient is on cefepime and fluconazole. Continue FIO2 of 30% on T-tube. (2) Acute and chronic respiratory failure Current Visit: No Status: Acute Qualifiers: Respiratory failure complication: hypoxia Qualified Code(s): J96.21 - Acute and chronic respiratory failure with hypoxia Plan to address problem: S/P tracheostomy. T-tube FIO2 of 30%. Albuterol aerosol treatment q 6 hours Continue S/C heparin. Continue famotidine Patient is on cefepime and fluconazole. (3) History of tracheostomy Current Visit: Yes Status: Chronic Plan to address problem: Tracheostomy care by respiratory therapy. Subjective Date of service: 10/06/18 Principal diagnosis: Ac on ch hypoxemic resp failure; HAP; Urinary tract infection; DM II Interval history: Patient is resting on T-tube FIO2 of 30%. Oxygen saturation of 98%. Patient is not responding to verbal stimuli. No acute respiratory distress at rest. Patient is Running low grade temp. BP 131/63. Objective Vital Signs - 12hr 10/06/18 10/06/18 10/06/18 03:48 04:03 08:24 Temperature 100.1 F H 100.1 F H Pulse Rate 92 H 90 90 Pulse Rate [ Anterior Bilateral Throughout] Pulse Rate [ Apical] Pulse Rate [ Left Dorsalis Pedis] Pulse Rate [ Left Radial] Pulse Rate [ Posterior Bilateral Throughout] Pulse Rate [ Right Dorsalis Pedis] Pulse Rate [ Right Radial] Respiratory 22 18 Rate Respiratory Rate [Anterior Bilateral Throughout] Respiratory Rate [Posterior Bilateral Throughout] Blood Pressure 125/49 133/54 O2 Sat by Pulse 95 98 Oximetry O2 Sat by Pulse Oximetry [ Assessment] 10/06/18 10/06/18 10/06/18 08:44 08:45 09:00 Temperature Pulse Rate Pulse Rate [ 88 86 Anterior Bilateral Throughout] Pulse Rate [ Apical] Pulse Rate [ Left Dorsalis Pedis] Pulse Rate [ Left Radial] Pulse Rate [ Posterior Bilateral Throughout] Pulse Rate [ Right Dorsalis Pedis] Pulse Rate [ Right Radial] Respiratory Rate Respiratory 16 16 Rate [Anterior Bilateral Throughout] Respiratory Rate [Posterior Bilateral Throughout] Blood Pressure O2 Sat by Pulse 100 Oximetry O2 Sat by Pulse Oximetry [ Assessment] 10/06/18 10/06/18 10/06/18 09:24 09:51 10:00 Temperature Pulse Rate 61 Pulse Rate [ Anterior Bilateral Throughout] Pulse Rate [ 98 H Apical] Pulse Rate [ 98 H Left Dorsalis Pedis] Pulse Rate [ 98 H Left Radial] Pulse Rate [ Posterior Bilateral Throughout] Pulse Rate [ 98 H Right Dorsalis Pedis] Pulse Rate [ 98 H Right Radial] Respiratory 19 Rate Respiratory Rate [Anterior Bilateral Throughout] Respiratory Rate [Posterior Bilateral Throughout] Blood Pressure 125/52 O2 Sat by Pulse 99 98 100 Oximetry O2 Sat by Pulse 99 Oximetry [ Assessment] 10/06/18 10/06/18 10/06/18 10:02 10:05 12:15 Temperature 100.9 F H Pulse Rate 64 64 89 Pulse Rate [ Anterior Bilateral Throughout] Pulse Rate [ Apical] Pulse Rate [ Left Dorsalis Pedis] Pulse Rate [ Left Radial] Pulse Rate [ Posterior Bilateral Throughout] Pulse Rate [ Right Dorsalis Pedis] Pulse Rate [ Right Radial] Respiratory 19 Rate Respiratory Rate [Anterior Bilateral Throughout] Respiratory Rate [Posterior Bilateral Throughout] Blood Pressure 125/52 125/52 128/59 O2 Sat by Pulse 99 Oximetry O2 Sat by Pulse Oximetry [ Assessment] 10/06/18 10/06/18 10/06/18 12:23 12:40 12:51 Temperature 99.7 F H 99.8 F H Pulse Rate 87 86 74 Pulse Rate [ Anterior Bilateral Throughout] Pulse Rate [ Apical] Pulse Rate [ Left Dorsalis Pedis] Pulse Rate [ Left Radial] Pulse Rate [ Posterior Bilateral Throughout] Pulse Rate [ Right Dorsalis Pedis] Pulse Rate [ Right Radial] Respiratory 16 19 19 Rate Respiratory Rate [Anterior Bilateral Throughout] Respiratory Rate [Posterior Bilateral Throughout] Blood Pressure 124/57 111/58 112/55 O2 Sat by Pulse 98 98 97 Oximetry O2 Sat by Pulse Oximetry [ Assessment] 10/06/18 10/06/18 10/06/18 12:54 12:55 13:02 Temperature 99.5 F 99.4 F Pulse Rate 79 89 75 Pulse Rate [ Anterior Bilateral Throughout] Pulse Rate [ Apical] Pulse Rate [ Left Dorsalis Pedis] Pulse Rate [ Left Radial] Pulse Rate [ Posterior Bilateral Throughout] Pulse Rate [ Right Dorsalis Pedis] Pulse Rate [ Right Radial] Respiratory 19 19 Rate Respiratory Rate [Anterior Bilateral Throughout] Respiratory Rate [Posterior Bilateral Throughout] Blood Pressure 112/55 133/55 132/54 O2 Sat by Pulse 96 97 98 Oximetry O2 Sat by Pulse Oximetry [ Assessment] 10/06/18 10/06/18 10/06/18 13:29 13:30 13:40 Temperature 99.9 F H 99.9 F H 99.6 F Pulse Rate 89 89 71 Pulse Rate [ Anterior Bilateral Throughout] Pulse Rate [ Apical] Pulse Rate [ Left Dorsalis Pedis] Pulse Rate [ Left Radial] Pulse Rate [ Posterior Bilateral Throughout] Pulse Rate [ Right Dorsalis Pedis] Pulse Rate [ Right Radial] Respiratory 19 19 19 Rate Respiratory Rate [Anterior Bilateral Throughout] Respiratory Rate [Posterior Bilateral Throughout] Blood Pressure 122/61 122/61 121/53 O2 Sat by Pulse 99 97 100 Oximetry O2 Sat by Pulse Oximetry [ Assessment] 10/06/18 10/06/18 14:27 14:45 Temperature 100.3 F H Pulse Rate 89 Pulse Rate [ 89 Anterior Bilateral Throughout] Pulse Rate [ Apical] Pulse Rate [ Left Dorsalis Pedis] Pulse Rate [ Left Radial] Pulse Rate [ 89 Posterior Bilateral Throughout] Pulse Rate [ Right Dorsalis Pedis] Pulse Rate [ Right Radial] Respiratory 19 Rate Respiratory 18 Rate [Anterior Bilateral Throughout] Respiratory 16 Rate [Posterior Bilateral Throughout] Blood Pressure O2 Sat by Pulse 98 Oximetry O2 Sat by Pulse Oximetry [ Assessment] Constitutional: no acute distress, asleep, other (elderly looking AAM, normocephalic . Not responding to verbal stimuli.) Eyes: non-icteric ENT: oropharynx moist Neck: supple, no lymphadenopathy, no JVD, other (midline tracheostomy tube) Effort: mildly labored Ascultation: Bilateral: diminished breath sounds, rhonchi Percussion: Bilateral: not dull Cardiovascular: regular rate and rhythm Gastrointestinal: normoactive bowel sounds, soft, non-tender, non-distended Integumentary: rash Extremities: no cyanosis, pulses normal, no ischemia or petechiae, edema (2+) Neurologic: unable to assess Psychiatric: other (encephalopathic) CBC and BMP: 10/06/18 06:01 10/06/18 06:01 ABG, PT/INR, D-dimer: ABG POC ABG pH 7.525 (7.35-7.45) H 10/03/18 04:37 POC ABG pCO2 < 30 (35-45) L 10/03/18 04:37 POC ABG pO2 63 (80-105) L 10/03/18 04:37 POC ABG HCO3 23.4 (22-26 mml/L) 10/03/18 04:37 POC ABG Total CO2 24 (23-27mmol/L) 10/03/18 04:37 POC ABG O2 Sat 94 10/03/18 04:37 Abnormal lab findings: Abnormal Labs 09/27/18 09/27/18 09/27/18 22:54 23:00 23:00 RBC 2.71 L Hgb 7.4 L Hct 22.0 L MCV 81 L MCH 27 L RDW 21.4 H Lymph % (Auto) [place] % (Auto) 13.8 H [place] # 1.3 H Eos # Seg Neutrophils % Seg Neutrophils # POC ABG pH POC ABG pCO2 POC ABG pO2 Sodium Potassium Chloride BUN 40 H Glucose 431 H POC Glucose 456 H Calcium AST 78 H ALT 107 H Alkaline Phosphatase 178 H Total Creatine Kinase Troponin T 0.407 H* C-Reactive Protein Total Protein Albumin 1.9 L LDL Cholesterol Direct 25 L HDL Cholesterol 19 L Urine WBC (Auto) Crossmatch 09/27/18 09/28/18 09/28/18 23:34 01:05 02:43 RBC Hgb Hct MCV MCH RDW Lymph % (Auto) [place] % (Auto) [place] # Eos # Seg Neutrophils % Seg Neutrophils # POC ABG pH 7.525 H POC ABG pCO2 33.1 L POC ABG pO2 Sodium Potassium Chloride BUN Glucose POC Glucose 497 H Calcium AST ALT Alkaline Phosphatase Total Creatine Kinase Troponin T C-Reactive Protein Total Protein Albumin LDL Cholesterol Direct HDL Cholesterol Urine WBC (Auto) 63.0 H Crossmatch 09/28/18 09/28/18 09/28/18 04:11 07:13 11:47 RBC Hgb Hct MCV MCH RDW Lymph % (Auto) [place] % (Auto) [place] # Eos # Seg Neutrophils % Seg Neutrophils # POC ABG pH POC ABG pCO2 POC ABG pO2 Sodium Potassium Chloride BUN Glucose POC Glucose 362 H 392 H 244 H Calcium AST ALT Alkaline Phosphatase Total Creatine Kinase Troponin T C-Reactive Protein Total Protein Albumin LDL Cholesterol Direct HDL Cholesterol Urine WBC (Auto) Crossmatch 09/28/18 09/28/18 09/29/18 12:11 16:32 00:18 RBC Hgb Hct MCV MCH RDW Lymph % (Auto) [place] % (Auto) [place] # Eos # Seg Neutrophils % Seg Neutrophils # POC ABG pH POC ABG pCO2 POC ABG pO2 Sodium Potassium Chloride BUN Glucose POC Glucose 159 H 118 H Calcium AST ALT Alkaline Phosphatase Total Creatine Kinase 301 H Troponin T 0.294 H* D C-Reactive Protein Total Protein Albumin LDL Cholesterol Direct HDL Cholesterol Urine WBC (Auto) Crossmatch 09/29/18 09/29/18 09/29/18 04:28 11:23 18:58 RBC Hgb Hct MCV MCH RDW Lymph % (Auto) [place] % (Auto) [place] # Eos # Seg Neutrophils % Seg Neutrophils # POC ABG pH POC ABG pCO2 POC ABG pO2 Sodium Potassium Chloride BUN Glucose POC Glucose 67 L 126 H 167 H Calcium AST ALT Alkaline Phosphatase Total Creatine Kinase Troponin T C-Reactive Protein Total Protein Albumin LDL Cholesterol Direct HDL Cholesterol Urine WBC (Auto) Crossmatch 09/29/18 09/29/18 09/30/18 20:51 23:41 04:56 RBC Hgb Hct MCV MCH RDW Lymph % (Auto) [place] % (Auto) [place] # Eos # Seg Neutrophils % Seg Neutrophils # POC ABG pH POC ABG pCO2 POC ABG pO2 Sodium Potassium Chloride BUN Glucose POC Glucose 182 H 170 H 133 H Calcium AST ALT Alkaline Phosphatase Total Creatine Kinase Troponin T C-Reactive Protein Total Protein Albumin LDL Cholesterol Direct HDL Cholesterol Urine WBC (Auto) Crossmatch 09/30/18 09/30/18 09/30/18 12:37 16:25 20:35 RBC Hgb Hct MCV MCH RDW Lymph % (Auto) [place] % (Auto) [place] # Eos # Seg Neutrophils % Seg Neutrophils # POC ABG pH POC ABG pCO2 POC ABG pO2 Sodium Potassium Chloride BUN Glucose POC Glucose 182 H 185 H 227 H Calcium AST ALT Alkaline Phosphatase Total Creatine Kinase Troponin T C-Reactive Protein Total Protein Albumin LDL Cholesterol Direct HDL Cholesterol Urine WBC (Auto) Crossmatch 09/30/18 10/01/18 10/01/18 23:56 04:05 13:22 RBC Hgb Hct MCV MCH RDW Lymph % (Auto) [place] % (Auto) [place] # Eos # Seg Neutrophils % Seg Neutrophils # POC ABG pH POC ABG pCO2 POC ABG pO2 Sodium Potassium Chloride BUN Glucose POC Glucose 226 H 182 H 122 H Calcium AST ALT Alkaline Phosphatase Total Creatine Kinase Troponin T C-Reactive Protein Total Protein Albumin LDL Cholesterol Direct HDL Cholesterol Urine WBC (Auto) Crossmatch 10/01/18 10/01/18 10/01/18 17:58 18:49 23:42 RBC Hgb Hct MCV MCH RDW Lymph % (Auto) [place] % (Auto) [place] # Eos # Seg Neutrophils % Seg Neutrophils # POC ABG pH POC ABG pCO2 POC ABG pO2 Sodium Potassium Chloride BUN Glucose POC Glucose 62 L 140 H 172 H Calcium AST ALT Alkaline Phosphatase Total Creatine Kinase Troponin T C-Reactive Protein Total Protein Albumin LDL Cholesterol Direct HDL Cholesterol Urine WBC (Auto) Crossmatch 10/02/18 10/02/18 10/02/18 06:25 08:45 08:45 RBC 2.65 L Hgb 7.0 L Hct 21.2 L MCV 80 L MCH 26 L RDW 21.0 H Lymph % (Auto) [place] % (Auto) 9.7 H [place] # 1.0 H Eos # Seg Neutrophils % 71.9 H Seg Neutrophils # POC ABG pH POC ABG pCO2 POC ABG pO2 Sodium Potassium Chloride BUN 29 H Glucose 229 H POC Glucose 226 H Calcium 7.9 L AST ALT Alkaline Phosphatase Total Creatine Kinase Troponin T C-Reactive Protein Total Protein Albumin LDL Cholesterol Direct HDL Cholesterol Urine WBC (Auto) Crossmatch 10/02/18 10/02/18 10/02/18 12:06 17:42 21:02 RBC Hgb Hct MCV MCH RDW Lymph % (Auto) [place] % (Auto) [place] # Eos # Seg Neutrophils % Seg Neutrophils # POC ABG pH POC ABG pCO2 POC ABG pO2 Sodium Potassium Chloride BUN Glucose POC Glucose 217 H 216 H 116 H Calcium AST ALT Alkaline Phosphatase Total Creatine Kinase Troponin T C-Reactive Protein Total Protein Albumin LDL Cholesterol Direct HDL Cholesterol Urine WBC (Auto) Crossmatch 10/03/18 10/03/18 10/03/18 00:29 00:49 04:37 RBC 2.87 L Hgb 7.6 L Hct 23.0 L MCV 80 L MCH 26 L RDW 20.5 H Lymph % (Auto) 11.6 L [place] % (Auto) 7.5 H [place] # Eos # Seg Neutrophils % 78.0 H Seg Neutrophils # 8.4 H POC ABG pH 7.525 H POC ABG pCO2 < 30 L POC ABG pO2 63 L Sodium Potassium Chloride BUN Glucose POC Glucose 117 H Calcium AST ALT Alkaline Phosphatase Total Creatine Kinase Troponin T C-Reactive Protein Total Protein Albumin LDL Cholesterol Direct HDL Cholesterol Urine WBC (Auto) Crossmatch 10/03/18 10/03/18 10/03/18 05:49 12:20 15:26 RBC Hgb Hct MCV MCH RDW Lymph % (Auto) [place] % (Auto) [place] # Eos # Seg Neutrophils % Seg Neutrophils # POC ABG pH POC ABG pCO2 POC ABG pO2 Sodium Potassium Chloride BUN Glucose POC Glucose 218 H 238 H Calcium AST ALT Alkaline Phosphatase Total Creatine Kinase Troponin T C-Reactive Protein 14.70 H Total Protein Albumin LDL Cholesterol Direct HDL Cholesterol Urine WBC (Auto) Crossmatch 10/03/18 10/03/18 10/04/18 16:35 21:13 00:26 RBC Hgb Hct MCV MCH RDW Lymph % (Auto) [place] % (Auto) [place] # Eos # Seg Neutrophils % Seg Neutrophils # POC ABG pH POC ABG pCO2 POC ABG pO2 Sodium Potassium Chloride BUN Glucose POC Glucose 219 H 158 H 181 H Calcium AST ALT Alkaline Phosphatase Total Creatine Kinase Troponin T C-Reactive Protein Total Protein Albumin LDL Cholesterol Direct HDL Cholesterol Urine WBC (Auto) Crossmatch 10/04/18 10/04/18 10/04/18 05:33 12:10 15:58 RBC Hgb Hct MCV MCH RDW Lymph % (Auto) [place] % (Auto) [place] # Eos # Seg Neutrophils % Seg Neutrophils # POC ABG pH POC ABG pCO2 POC ABG pO2 Sodium Potassium Chloride BUN Glucose POC Glucose 209 H 270 H 266 H Calcium AST ALT Alkaline Phosphatase Total Creatine Kinase Troponin T C-Reactive Protein Total Protein Albumin LDL Cholesterol Direct HDL Cholesterol Urine WBC (Auto) Crossmatch 10/05/18 10/05/18 10/05/18 06:18 11:52 17:17 RBC Hgb Hct MCV MCH RDW Lymph % (Auto) [place] % (Auto) [place] # Eos # Seg Neutrophils % Seg Neutrophils # POC ABG pH POC ABG pCO2 POC ABG pO2 Sodium Potassium Chloride BUN Glucose POC Glucose 107 H 218 H 183 H Calcium AST ALT Alkaline Phosphatase Total Creatine Kinase Troponin T C-Reactive Protein Total Protein Albumin LDL Cholesterol Direct HDL Cholesterol Urine WBC (Auto) Crossmatch 10/06/18 10/06/18 10/06/18 00:11 06:01 06:01 RBC 2.46 L Hgb 6.4 L Hct 19.8 L* MCV 80 L MCH 26 L RDW 21.7 H Lymph % (Auto) [place] % (Auto) 10.4 H [place] # 1.1 H Eos # 0.5 H Seg Neutrophils % Seg Neutrophils # POC ABG pH POC ABG pCO2 POC ABG pO2 Sodium 147 H Potassium 3.2 L Chloride 107.7 H BUN 37 H Glucose 153 H POC Glucose 205 H Calcium 7.8 L AST 52 H ALT Alkaline Phosphatase 153 H Total Creatine Kinase Troponin T C-Reactive Protein Total Protein 5.9 L Albumin 1.8 L LDL Cholesterol Direct HDL Cholesterol Urine WBC (Auto) Crossmatch 10/06/18 10/06/18 10/06/18 06:10 08:28 09:48 RBC Hgb Hct MCV MCH RDW Lymph % (Auto) [place] % (Auto) [place] # Eos # Seg Neutrophils % Seg Neutrophils # POC ABG pH POC ABG pCO2 POC ABG pO2 Sodium Potassium Chloride BUN Glucose POC Glucose 171 H 185 H Calcium AST ALT Alkaline Phosphatase Total Creatine Kinase Troponin T C-Reactive Protein Total Protein Albumin LDL Cholesterol Direct HDL Cholesterol Urine WBC (Auto) Crossmatch See Detail 10/06/18 12:31 RBC Hgb Hct MCV MCH RDW Lymph % (Auto) [place] % (Auto) [place] # Eos # Seg Neutrophils % Seg Neutrophils # POC ABG pH POC ABG pCO2 POC ABG pO2 Sodium Potassium Chloride BUN Glucose POC Glucose 131 H Calcium AST ALT Alkaline Phosphatase Total Creatine Kinase Troponin T C-Reactive Protein Total Protein Albumin LDL Cholesterol Direct HDL Cholesterol Urine WBC (Auto) Crossmatch Allied health notes reviewed: nursing
--- NOTE | 2018-10-06 16:35 | Consultation ---
History of Present Illness - Reason for Consult Consult date: 10/06/18 Sepsis, recurrent fever, aspiration, HCAP Requesting physician: BHAVESH CAMARA - History of Present Illness The patient is a 77-year-old male with recent CVA, prolonged hospitalization following cardiac arrest and recent discharge [facility] the [facility] a [facility] for back to the hospital on 09/27/2018 with fever and severe hyperglycemia. He was noted to have rectal temperature of 102.5F. He was found to have chest x-ray findings concerning for possible aspiration and pneumonia. He was started empirically on cefepime and vancomycin. Patient completed 7 days of these, due to persistent low-grade fevers, infectious diseases was consulted today. He also has multiple decubiti and skin wounds. He is status post tracheostomy, PEG tube and indwelling Armas catheter. He is completely nonverbal, history obtained by chart review and by discussing with Dr. Camara and the patient's bedside RN. Review of Systems: Unable to obtain due to baseline mental status. Medications and Allergies Allergies Allergy/AdvReac Type Severity Reaction Status Date / Time No Known Allergies Allergy Verified 08/12/18 21:47 Home Medications Medication Instructions Recorded Confirmed Last Taken Type Amantadine [Symmetrel] 100 mg FEEDTUBE DAILY 08/18/18 09/28/18 08/13/18 History Amlodipine Besylate [Norvasc] 5 mg FEEDTUBE DAILY 08/18/18 09/28/18 08/13/18 History Ascorbic Acid [Vitamin C Oral Liq] 500 mg FEEDTUBE QDAY 08/18/18 09/28/18 08/13/18 History Atorvastatin Calcium [Lipitor] 40 mg FEEDTUBE DAILY 08/18/18 09/28/18 08/13/18 History Bisacodyl [Dulcolax suppos] 10 mg [place] QDAY PRN 08/18/18 09/28/18 Unknown History Docusate Sodium [Colace ORAL LIQ] 100 mg FEEDTUBE QDAY PRN 08/18/18 09/28/18 Unknown History Ferrous Sulfate [Ferrous Sulfate 7.5 ml FEEDTUBE DAILY 08/18/18 09/28/18 08/13/18 History 220 MG/5 ML] Glycopyrrolate [Robinul] 2 mg FEEDTUBE Q8H 08/18/18 09/28/18 08/13/18 History Insulin Glargine,Hum.rec.anlog 40 unit SQ HS 08/18/18 09/28/18 08/12/18 History [Basaglar Kwikpen U-100] Lacosamide [Vimpat] 1 tab FEEDTUBE Q12HR 08/18/18 09/28/18 Unknown History Cefuroxime Axetil [Ceftin] 250 mg PO Q12H #100 ml 09/17/18 09/28/18 Unknown Rx Acetaminophen 650 mg FEEDTUBE Q12H PRN 09/28/18 09/28/18 Unknown History Aspirin [Aspirin BABY CHEW TAB] 81 mg FEEDTUBE QDAY 09/28/18 09/28/18 Unknown History Benazepril HCl [Lotensin] 10 mg FEEDTUBE QDAY 09/28/18 09/28/18 Unknown History Lispro Insulin [HumaLOG] See Protocol SQ ACHS 09/28/18 09/28/18 Unknown History Tamsulosin [Flomax] 0.4 mg FEEDTUBE QDAY 09/28/18 09/28/18 Unknown History guaiFENesin [Mucus-Chest 200 mg FEEDTUBE Q4H PRN 09/28/18 09/28/18 Unknown History Congestion] Active Meds: Active Medications Acetaminophen (Tylenol) 650 mg IL Q4H PRN PRN Reason: Fever >101 Last Admin: 10/06/18 16:03 Dose: 650 mg Documented by: Albuterol (Proventil) 2.5 mg IH Q6HRT PRN PRN Reason: Shortness Of Breath Albuterol (Proventil) 2.5 mg IH Q6HRT [facility] Last Admin: 10/06/18 14:27 Dose: 2.5 mg Documented by: Amantadine HCl (Symmetrel) 100 mg FEEDTUBE DAILY [facility] Last Admin: 10/06/18 10:06 Dose: 100 mg Documented by: Amlodipine Besylate (Norvasc) 5 mg FEEDTUBE DAILY [facility] Last Admin: 10/06/18 10:02 Dose: 5 mg Documented by: Lipase/Protease/Amylase (Juana Alas 10,500 Unit) 1 each FEEDTUBE PRN PRN PRN Reason: For Clogged Feeding Tube Ascorbic Acid (Vitamin C) 500 mg FEEDTUBE QDAY [facility] Last Admin: 10/06/18 10:04 Dose: 500 mg Documented by: Aspirin (Baby Aspirin) 81 mg FEEDTUBE QDAY [facility] Last Admin: 10/06/18 10:05 Dose: 81 mg Documented by: Atorvastatin Calcium (Lipitor) 40 mg FEEDTUBE QHS [facility] Last Admin: 10/05/18 21:02 Dose: 40 mg Documented by: Bisacodyl (Dulcolax) 10 mg [place] QDAY PRN PRN Reason: Constipation Last Admin: 10/06/18 16:03 Dose: 10 mg Documented by: Dextrose (D50w (25gm) Syringe) 50 ml IV PRN PRN PRN Reason: Hypoglycemia Last Admin: 10/01/18 18:14 Dose: 50 ml Documented by: Docusate Sodium (Colace) 100 mg FEEDTUBE QDAY PRN PRN Reason: Constipation Famotidine (Pepcid) 20 mg PO QDAY [facility] Last Admin: 10/06/18 10:02 Dose: 20 mg Documented by: Ferrous Sulfate (Ferrous Sulfate) 308 mg FEEDTUBE DAILY [facility] Last Admin: 10/06/18 10:04 Dose: 308 mg Documented by: Fluconazole (Diflucan) 100 mg PO QDAY [facility] Last Admin: 10/06/18 10:05 Dose: 100 mg Documented by: Furosemide (Lasix) 40 mg IV 0600,1800 [facility] Last Admin: 10/06/18 05:38 Dose: 40 mg Documented by: Glycopyrrolate (Robinul) 2 mg FEEDTUBE Q8H [facility] Last Admin: 10/06/18 14:24 Dose: 2 mg Documented by: Heparin Sodium (Porcine) (Heparin) 5,000 unit SUB-Q Q12HR [facility] Last Admin: 10/06/18 10:06 Dose: 5,000 unit Documented by: Hydralazine HCl (Apresoline) 10 mg IV Q4HR PRN PRN Reason: Hypertension Last Admin: 10/02/18 05:45 Dose: 10 mg Documented by: Insulin Glargine (Lantus) 40 units SUB-Q QHS [facility] Last Admin: 10/06/18 02:25 Dose: Not Given Documented by: Insulin Human Lispro (Humalog) 8 unit SUB-Q [facility] Last Admin: 10/06/18 12:26 Dose: Not Given Documented by: Insulin Human Regular (Humulin R) 0 units SUB-Q Q6HR [facility]; Protocol Last Admin: 10/06/18 12:26 Dose: Not Given Documented by: Lacosamide (Vimpat) 100 mg PO Q12HR [facility] Last Admin: 10/06/18 10:05 Dose: 100 mg Documented by: Lisinopril (Zestril) 10 mg FEEDTUBE QDAY [facility] Last Admin: 10/06/18 10:05 Dose: 10 mg Documented by: Metoclopramide HCl (Reglan) 10 mg IV Q6H PRN PRN Reason: Nausea And Vomiting Last Admin: 10/03/18 00:59 Dose: 10 mg Documented by: Ondansetron HCl (Zofran) 4 mg IV Q8H PRN PRN Reason: Nausea And Vomiting Last Admin: 10/02/18 21:47 Dose: 4 mg Documented by: Simple Syrup (Simple Syrup) 15 ml FEEDTUBE PRN PRN PRN Reason: Hypoglycemia Last Admin: 09/29/18 04:50 Dose: 15 ml Documented by: Simple Syrup (Simple Syrup) 30 ml FEEDTUBE PRN PRN PRN Reason: Hypoglycemia Sodium Bicarbonate (Sodium Bicarbonate) 325 mg FEEDTUBE PRN PRN PRN Reason: For Clogged Feeding Tube Sucralfate (Carafate) 1 gm FEEDTUBE Q8H [facility] Last Admin: 10/06/18 12:03 Dose: 1 gm Documented by: Tamsulosin HCl (Flomax) 0.4 mg PO QDAY [facility] Last Admin: 10/06/18 10:05 Dose: 0.4 mg Documented by: Physical Examination - Physical Exam Narrative exam: Physical Exam: Constitutional: Unresponsive Head, Ears, Nose: Normocephalic, atraumatic. External ears, nose normal Eyes: Conjunctivae/corneas clear. No icterus. No ptosis. Neck: Trach + Oral: Unable to examine Cardiovascular: S1, S2 normal. Respiratory: Coarse sounds bilaterally GI: Soft, bowel sounds normal. No peritoneal signs. G-tube present, Armas catheter present Musculoskeletal: No pedal edema, no cyanosis. Skin: Multiple skin wounds involving sacrum, bilateral heel regions. Hem/Lymphatic: No palpable cervical or supraclavicular nodes. No lymphangitis Psych: Unresponsive Neurological: Unresponsive, nonverbal - Constitutional Vitals: Vital Signs Temp Pulse Resp BP Pulse Ox 100.6 F H 89 21 131/63 99 07/09/19 15:30 10/06/18 15:30 10/06/18 15:30 10/06/18 15:30 10/06/18 15:30 Temperature -Last 24 Hours Temperature 100.6 F Temperature 100.5 F Temperature 100.3 F Temperature 99.6 F Temperature 99.9 F Temperature 99.9 F Temperature 99.4 F Temperature 99.5 F Temperature 99.8 F Temperature 99.7 F Temperature 100.9 F Temperature 100.1 F Temperature 100.1 F Temperature 101.0 F Temperature 99.0 F Temperature 98.6 F Temperature 98.6 F Results - Labs CBC & Chem 7: 10/06/18 06:01 10/06/18 06:01 Labs: Abnormal lab results 10/05/18 10/06/18 10/06/18 Range/Units 17:17 00:11 06:01 RBC 2.46 L (3.65-5.03) M/mm3 Hgb 6.4 L (11.8-15.2) gm/dl Hct 19.8 L* (35.5-45.6) % MCV 80 L (84-94) fl MCH 26 L (28-32) pg RDW 21.7 H (13.2-15.2) % [place] % (Auto) 10.4 H (0.0-7.3) % [place] # 1.1 H (0.0-0.8) K/mm3 Eos # 0.5 H (0.0-0.4) K/mm3 Sodium (137-145) mmol/L Potassium (3.6-5.0) mmol/L Chloride (98-107) mmol/L BUN (9-20) mg/dL Glucose (75-100) mg/dL POC Glucose 183 H 205 H (70-105) Calcium (8.4-10.2) mg/dL AST (5-40) units/L Alkaline Phosphatase (35-129) units/L Total Protein (6.3-8.2) g/dL Albumin (3.9-5) g/dL Crossmatch 10/06/18 10/06/18 10/06/18 Range/Units 06:01 06:10 08:28 RBC (3.65-5.03) M/mm3 Hgb (11.8-15.2) gm/dl Hct (35.5-45.6) % MCV (84-94) fl MCH (28-32) pg RDW (13.2-15.2) % [place] % (Auto) (0.0-7.3) % [place] # (0.0-0.8) K/mm3 Eos # (0.0-0.4) K/mm3 Sodium 147 H (137-145) mmol/L Potassium 3.2 L (3.6-5.0) mmol/L Chloride 107.7 H (98-107) mmol/L BUN 37 H (9-20) mg/dL Glucose 153 H (75-100) mg/dL POC Glucose 171 H 185 H (70-105) Calcium 7.8 L (8.4-10.2) mg/dL AST 52 H (5-40) units/L Alkaline Phosphatase 153 H (35-129) units/L Total Protein 5.9 L (6.3-8.2) g/dL Albumin 1.8 L (3.9-5) g/dL Crossmatch 10/06/18 10/06/18 Range/Units 09:48 12:31 RBC (3.65-5.03) M/mm3 Hgb (11.8-15.2) gm/dl Hct (35.5-45.6) % MCV (84-94) fl MCH (28-32) pg RDW (13.2-15.2) % [place] % (Auto) (0.0-7.3) % [place] # (0.0-0.8) K/mm3 Eos # (0.0-0.4) K/mm3 Sodium (137-145) mmol/L Potassium (3.6-5.0) mmol/L Chloride (98-107) mmol/L BUN (9-20) mg/dL Glucose (75-100) mg/dL POC Glucose 131 H (70-105) Calcium (8.4-10.2) mg/dL AST (5-40) units/L Alkaline Phosphatase (35-129) units/L Total Protein (6.3-8.2) g/dL Albumin (3.9-5) g/dL Crossmatch See Detail - Imaging and Cardiology Chest x-ray: report reviewed, image reviewed (Chest x-ray shows tracheostomy tube in position, right upper lobe infiltrate) Assessment and Plan Cultures: 09/27/2018 blood culture: No growth 09/28/2018 urine culture: Yeast: Non-albicans [place] 09/28/2018 MRSA nasal culture: Negative 10/04/2018 tracheal aspirate: Oropharyngeal contamination 10/06/2018 blood culture: In progress A/P: 77-year-old male with recent CVA, prolonged hospitalization following cardiac arrest and recent discharge from the hospital to a jail, now with: 1) Sepsis: Source unclear, likely aspiration pneumonia, healthcare associated pneumonia. Possible catheter associated UTI versus multiple skin wounds. Rule out DVT as cause of recurrent fever. ?Recurrent aspiration. 2) HCAP v/s aspiration pneumonia: Chest x-ray shows evidence of right upper lobe infiltrate. Patient with chronic respiratory failure status post tracheostomy. Completed 7 days of cefepime and vancomycin. 3) Chronic anoxic encephalopathy 4) Multiple decubitus ulcers: Continue wound care 5) Candiduria: Armas catheter exchange. Recs: Started IV cefepime and Flagyl to cover for anaerobes as well for aspiration p neumonia Armas catheter exchange ordered Bilateral lower extremity duplex ordered to rule out DVT Continue wound care Overall poor prognosis D/W Dr. Camara. Tiara Corcoran MD, FACP [facility] C: [phone] O: [phone] F: [phone]
[2018-10-06] MEDS: FLAGYL 500 MG/100 ML 500 MG/100 ML BAG IV SCH ×2 (18:24→22:55)
[2018-10-06] MEDS: MAXIPIME/NS 2 GM/100 ML 2 GM/100 ML BAG IV SCH (23:09)
[2018-10-07] MEDS: LANTUS SUB-Q SCH ×2 (00:07→22:45)
[2018-10-07] MEDS: HumuLIN R SUB-Q SCH ×4 (00:07→18:13)
[2018-10-07] MEDS: PROVENTIL IH SCH ×4 (01:42→20:54)
[2018-10-07] MEDS: CARAFATE FEEDTUBE SCH ×3 (05:00→20:15)
[2018-10-07] MEDS: LASIX IV SCH ×2 (05:01→18:54)
[2018-10-07] MEDS: FLAGYL 500 MG/100 ML 500 MG/100 ML BAG IV SCH ×3 (05:03→22:46)
[2018-10-07] MEDS: ROBINUL FEEDTUBE SCH ×3 (05:03→22:45)
[2018-10-07 06:33] LABS: Basophils # (Auto) 0.1 K/mm3 (0.0-0.1); Basophils % (Auto) 1.3 % (0.0-1.8); Eosinophils # (Auto) 0.4 K/mm3 (0.0-0.4); Eosinophils % (Auto) 4.7 % (0.0-4.3); Hematocrit 24.8 % (35.5-45.6); Hemoglobin 8.1 gm/dl (11.8-15.2); Lymphocytes # (Auto) 1.7 K/mm3 (1.2-5.4); Lymphocytes % (Auto) 18.7 % (13.4-35.0); Mean Corpuscular HGB Conc 33 % (32-34); Mean Corpuscular Volume 83 fl (84-94); Monocytes % (Auto) 10.5 % (0.0-7.3); Platelet Count 367 K/mm3 (140-440); Red Blood Count 2.99 M/mm3 (3.65-5.03); Red Cell Distribution Width 21.9 % (13.2-15.2)
[2018-10-07 06:57] LABS: Albumin 1.7 g/dL (3.9-5); Calcium 8.3 mg/dL (8.4-10.2)
--- NOTE | 2018-10-07 09:03 | Vascular Lab Report ---
DUPLEX DOPPLER LOWER EXTREMITY VEINS, BILATERAL INDICATION: swelling, edema, immobilization. TECHNIQUE: Duplex doppler imaging was performed through the veins of both lower extremities using venous hannah rosio and other maneuvers. COMPARISON: No relevant prior imaging study available. FINDINGS: Right Common femoral vein: Negative. Right Superficial femoral vein: Negative. Right Popliteal vein: Negative. Right Calf veins: Negative. Left Common femoral vein: Negative. Left Superficial femoral vein: Negative. Left Popliteal vein: Negative. Left Calf veins: Negative. Additional findings: None.. IMPRESSION: No sonographic evidence for DVT in either lower extremity. Signer Name: Faraz Resendiz Jr, MD Signed: 10/07/2018 8:59 AM Workstation Name: [id number]
--- NOTE | 2018-10-07 10:18 | Progress Note ---
Assessment and Plan Cultures: 09/27/2018 blood culture: No growth 09/28/2018 urine culture: Yeast: Non-albicans [place] 09/28/2018 MRSA nasal culture: Negative 10/04/2018 tracheal aspirate: Oropharyngeal contamination 10/06/2018 blood culture: no growth to date 10/06/2018 Urine: in progress A/P: 77-year-old male with recent CVA, prolonged hospitalization following cardiac arrest and recent discharge from the hospital to a halfway, now with: 1) Sepsis: Improved. Source unclear, likely aspiration pneumonia, healthcare associated pneumonia. Possible catheter associated UTI versus multiple skin woun ds. Duplex scan reveals no sonographic evidence for DVT in either lower extremity. 2) HCAP v/s aspiration pneumonia: Chest x-ray shows evidence of right upper lobe infiltrate. Patient with chronic respiratory failure status post tracheostomy. Completed 7 days of cefepime and vancomycin. 3) Chronic anoxic encephalopathy 4) Multiple decubitus ulcers: Continue wound care 5) Candiduria: Armas catheter exchanged 10/06/18 Recs: Continue IV cefepime and Flagyl to cover for anaerobes as well for aspiration pneumonia When afebrile for 24 hours, switch to Augmentin 875mg PO Liquid BID for 5 days Continue wound care Overall poor prognosis Tara Hobbs NP [facility] M: [phone] O:[phone] Subjective Date of service: 10/07/18 Principal diagnosis: Ac on ch hypoxemic resp failure; HAP; Urinary tract infection; DM II Interval history: Patient seen and examined. Unresponsive and nonverbal. + trach. Low grade fever. Objective - Exam Narrative Exam: Constitutional: Unresponsive Head, Ears, Nose: Normocephalic, atraumatic. External ears, nose normal Eyes: Conjunctivae/corneas clear. No icterus. No ptosis. Neck: Trach + Oral: Unable to examine Cardiovascular: S1, S2 normal. Respiratory: Coarse sounds bilaterally GI: Soft, bowel sounds normal. No peritoneal signs. G-tube present, Ramas catheter present Musculoskeletal: No pedal edema, no cyanosis. Skin: Multiple skin wounds involving sacrum, bilateral heel regions. Hem/Lymphatic: No palpable cervical or supraclavicular nodes. No lymphangitis Psych: Unresponsive Neurological: Unresponsive, nonverbal - Constitutional Vitals: Vital Signs Temp Pulse Resp BP Pulse Ox 99.3 F 89 18 132/60 97 10/07/18 07:59 10/07/18 09:17 10/07/18 09:17 10/07/18 07:59 10/07/18 07:59 Temperature -Last 24 Hours Temperature 99.3 F Temperature 97.1 F Temperature 99.0 F Temperature 100.2 F Temperature 99.0 F Temperature 100.6 F Temperature 100.5 F Temperature 100.3 F Temperature 99.6 F Temperature 99.9 F Temperature 99.9 F Temperature 99.4 F Temperature 99.5 F Temperature 99.8 F Temperature 99.7 F Temperature 100.9 F - Labs CBC & Chem 7: 10/07/18 05:21 10/07/18 05:21 Labs: Abnormal lab results 10/06/18 10/06/18 10/06/18 Range/Units 09:48 12:31 17:50 RBC (3.65-5.03) M/mm3 Hgb (11.8-15.2) gm/dl Hct (35.5-45.6) % MCV (84-94) fl MCH (28-32) pg RDW (13.2-15.2) % [place] % (Auto) (0.0-7.3) % Eos % (Auto) (0.0-4.3) % [place] # (0.0-0.8) K/mm3 Sodium (137-145) mmol/L Potassium (3.6-5.0) mmol/L Chloride (98-107) mmol/L BUN (9-20) mg/dL Glucose (75-100) mg/dL POC Glucose 131 H 244 H (70-105) Calcium (8.4-10.2) mg/dL AST (5-40) units/L Alkaline Phosphatase (35-129) units/L Albumin (3.9-5) g/dL Crossmatch See Detail 10/07/18 10/07/18 10/07/18 Range/Units 00:00 05:21 05:21 RBC 2.99 L (3.65-5.03) M/mm3 Hgb 8.1 L (11.8-15.2) gm/dl Hct 24.8 L (35.5-45.6) % MCV 83 L (84-94) fl MCH 27 L (28-32) pg RDW 21.9 H (13.2-15.2) % [place] % (Auto) 10.5 H (0.0-7.3) % Eos % (Auto) 4.7 H (0.0-4.3) % [place] # 1.0 H (0.0-0.8) K/mm3 Sodium 146 H (137-145) mmol/L Potassium 3.0 L (3.6-5.0) mmol/L Chloride 107.6 H (98-107) mmol/L BUN 39 H (9-20) mg/dL Glucose 191 H (75-100) mg/dL POC Glucose 261 H (70-105) Calcium 8.3 L (8.4-10.2) mg/dL AST 45 H (5-40) units/L Alkaline Phosphatase 149 H (35-129) units/L Albumin 1.7 L (3.9-5) g/dL Crossmatch 10/07/18 Range/Units 09:31 RBC (3.65-5.03) M/mm3 Hgb (11.8-15.2) gm/dl Hct (35.5-45.6) % MCV (84-94) fl MCH (28-32) pg RDW (13.2-15.2) % [place] % (Auto) (0.0-7.3) % Eos % (Auto) (0.0-4.3) % [place] # (0.0-0.8) K/mm3 Sodium (137-145) mmol/L Potassium (3.6-5.0) mmol/L Chloride (98-107) mmol/L BUN (9-20) mg/dL Glucose (75-100) mg/dL POC Glucose 200 H (70-105) Calcium (8.4-10.2) mg/dL AST (5-40) units/L Alkaline Phosphatase (35-129) units/L Albumin (3.9-5) g/dL Crossmatch
[2018-10-07] MEDS: FERROUS SULFATE FEEDTUBE SCH (10:42)
[2018-10-07] MEDS: MAXIPIME/NS 2 GM/100 ML 2 GM/100 ML BAG IV SCH ×2 (10:42→22:52)
[2018-10-07] MEDS: DIFLUCAN PO SCH (10:42)
[2018-10-07] MEDS: BABY ASPIRIN FEEDTUBE SCH (10:42)
[2018-10-07] MEDS: VITAMIN C FEEDTUBE SCH (10:43)
[2018-10-07] MEDS: ZESTRIL FEEDTUBE SCH (10:43)
[2018-10-07] MEDS: VIMPAT PO SCH ×2 (10:43→22:47)
[2018-10-07] MEDS: FLOMAX PO SCH (10:43)
[2018-10-07] MEDS: HEPARIN SUB-Q SCH ×2 (10:43→22:47)
[2018-10-07] MEDS: PEPCID PO SCH (10:43)
[2018-10-07] MEDS: NORVASC FEEDTUBE SCH (10:43)
[2018-10-07] MEDS: POTASSIUM CHLORIDE FEEDTUBE SCH ×2 (12:05→15:22)
[2018-10-07] MEDS: HumaLOG SUB-Q SCH (13:28)
[2018-10-07] MEDS: SYMMETREL FEEDTUBE SCH (13:35)
--- NOTE | 2018-10-07 14:34 | Progress Note ---
Assessment and Plan Patient is resting on T-tube FIO2 of 28%. Oxygen saturation of 97%. Patient is not responding to verbal stimuli. No acute respiratory distress at rest. Patient is Running low grade temp. BP 132/60. Patient received a blood transfusion yest erday. Todays hemoglobin is 8.1. - Patient Problems (1) HCAP (healthcare-associated pneumonia) Current Visit: Yes Status: Acute Plan to address problem: Patient is on cefepime and fluconazole. Continue FIO2 of 28% on T-tube. (2) Acute and chronic respiratory failure Current Visit: No Status: Acute Qualifiers: Respiratory failure complication: hypoxia Qualified Code(s): J96.21 - Acute and chronic respiratory failure with hypoxia Plan to address problem: S/P tracheostomy. T-tube FIO2 of 28%. Albuterol aerosol treatment q 6 hours Continue S/C heparin. Continue famotidine Patient is on cefepime and fluconazole. (3) History of tracheostomy Current Visit: Yes Status: Chronic Plan to address problem: Tracheostomy care by respiratory therapy. Subjective Date of service: 10/07/18 Principal diagnosis: Ac on ch hypoxemic resp failure; HAP; Urinary tract infection; DM II Interval history: Patient is resting on T-tube FIO2 of 28%. Oxygen saturation of 97%. Patient is not responding to verbal stimuli. No acute respiratory distress at rest. Patient is Running low grade temp. BP 132/60. Patient received a blood transfusion yesterday. Todays hemoglobin is 8.1. Objective Vital Signs - 12hr 10/07/18 10/07/18 10/07/18 04:08 07:59 08:56 Temperature 97.1 F L 99.3 F Pulse Rate 79 88 Pulse Rate [ 86 Anterior Bilateral Throughout] Respiratory 20 20 Rate Respiratory 18 Rate [Anterior Bilateral Throughout] Blood Pressure 129/51 132/60 O2 Sat by Pulse 99 97 Oximetry 10/07/18 10/07/18 09:17 10:43 Temperature Pulse Rate 89 Pulse Rate [ 89 Anterior Bilateral Throughout] Respiratory Rate Respiratory 18 Rate [Anterior Bilateral Throughout] Blood Pressure O2 Sat by Pulse Oximetry Constitutional: no acute distress, asleep, other (elderly looking AAM, normoc ephalic . Not responding to verbal stimuli.) Eyes: non-icteric ENT: oropharynx moist Neck: supple, no lymphadenopathy, no JVD, other (midline tracheostomy tube) Effort: mildly labored Ascultation: Bilateral: diminished breath sounds, rhonchi Percussion: Bilateral: not dull Cardiovascular: regular rate and rhythm Gastrointestinal: normoactive bowel sounds, soft, non-tender, non-distended Integumentary: rash Extremities: no cyanosis, pulses normal, no ischemia or petechiae, edema (2+) Neurologic: unable to assess Psychiatric: other (encephalopathic) CBC and BMP: 10/07/18 05:21 10/07/18 05:21 ABG, PT/INR, D-dimer: ABG POC ABG pH 7.525 (7.35-7.45) H 10/03/18 04:37 POC ABG pCO2 < 30 (35-45) L 10/03/18 04:37 POC ABG pO2 63 (80-105) L 10/03/18 04:37 POC ABG HCO3 23.4 (22-26 mml/L) 10/03/18 04:37 POC ABG Total CO2 24 (23-27mmol/L) 10/03/18 04:37 POC ABG O2 Sat 94 10/03/18 04:37 Abnormal lab findings: Abnormal Labs 09/27/18 09/27/18 09/27/18 22:54 23:00 23:00 RBC 2.71 L Hgb 7.4 L Hct 22.0 L MCV 81 L MCH 27 L RDW 21.4 H Lymph % (Auto) [place] % (Auto) 13.8 H Eos % (Auto) [place] # 1.3 H Eos # Seg Neutrophils % Seg Neutrophils # POC ABG pH POC ABG pCO2 POC ABG pO2 Sodium Potassium Chloride BUN 40 H Glucose 431 H POC Glucose 456 H Calcium AST 78 H ALT 107 H Alkaline Phosphatase 178 H Total Creatine Kinase Troponin T 0.407 H* C-Reactive Protein Total Protein Albumin 1.9 L LDL Cholesterol Direct 25 L HDL Cholesterol 19 L Urine WBC (Auto) Crossmatch 09/27/18 09/28/18 09/28/18 23:34 01:05 02:43 RBC Hgb Hct MCV MCH RDW Lymph % (Auto) [place] % (Auto) Eos % (Auto) [place] # Eos # Seg Neutrophils % Seg Neutrophils # POC ABG pH 7.525 H POC ABG pCO2 33.1 L POC ABG pO2 Sodium Potassium Chloride BUN Glucose POC Glucose 497 H Calcium AST ALT Alkaline Phosphatase Total Creatine Kinase Troponin T C-Reactive Protein Total Protein Albumin LDL Cholesterol Direct HDL Cholesterol Urine WBC (Auto) 63.0 H Crossmatch 09/28/18 09/28/18 09/28/18 04:11 07:13 11:47 RBC Hgb Hct MCV MCH RDW Lymph % (Auto) [place] % (Auto) Eos % (Auto) [place] # Eos # Seg Neutrophils % Seg Neutrophils # POC ABG pH POC ABG pCO2 POC ABG pO2 Sodium Potassium Chloride BUN Glucose POC Glucose 362 H 392 H 244 H Calcium AST ALT Alkaline Phosphatase Total Creatine Kinase Troponin T C-Reactive Protein Total Protein Albumin LDL Cholesterol Direct HDL Cholesterol Urine WBC (Auto) Crossmatch 09/28/18 09/28/18 09/29/18 12:11 16:32 00:18 RBC Hgb Hct MCV MCH RDW Lymph % (Auto) [place] % (Auto) Eos % (Auto) [place] # Eos # Seg Neutrophils % Seg Neutrophils # POC ABG pH POC ABG pCO2 POC ABG pO2 Sodium Potassium Chloride BUN Glucose POC Glucose 159 H 118 H Calcium AST ALT Alkaline Phosphatase Total Creatine Kinase 301 H Troponin T 0.294 H* D C-Reactive Protein Total Protein Albumin LDL Cholesterol Direct HDL Cholesterol Urine WBC (Auto) Crossmatch 09/29/18 09/29/18 09/29/18 04:28 11:23 18:58 RBC Hgb Hct MCV MCH RDW Lymph % (Auto) [place] % (Auto) Eos % (Auto) [place] # Eos # Seg Neutrophils % Seg Neutrophils # POC ABG pH POC ABG pCO2 POC ABG pO2 Sodium Potassium Chloride BUN Glucose POC Glucose 67 L 126 H 167 H Calcium AST ALT Alkaline Phosphatase Total Creatine Kinase Troponin T C-Reactive Protein Total Protein Albumin LDL Cholesterol Direct HDL Cholesterol Urine WBC (Auto) Crossmatch 09/29/18 09/29/18 09/30/18 20:51 23:41 04:56 RBC Hgb Hct MCV MCH RDW Lymph % (Auto) [place] % (Auto) Eos % (Auto) [place] # Eos # Seg Neutrophils % Seg Neutrophils # POC ABG pH POC ABG pCO2 POC ABG pO2 Sodium Potassium Chloride BUN Glucose POC Glucose 182 H 170 H 133 H Calcium AST ALT Alkaline Phosphatase Total Creatine Kinase Troponin T C-Reactive Protein Total Protein Albumin LDL Cholesterol Direct HDL Cholesterol Urine WBC (Auto) Crossmatch 09/30/18 09/30/18 09/30/18 12:37 16:25 20:35 RBC Hgb Hct MCV MCH RDW Lymph % (Auto) [place] % (Auto) Eos % (Auto) [place] # Eos # Seg Neutrophils % Seg Neutrophils # POC ABG pH POC ABG pCO2 POC ABG pO2 Sodium Potassium Chloride BUN Glucose POC Glucose 182 H 185 H 227 H Calcium AST ALT Alkaline Phosphatase Total Creatine Kinase Troponin T C-Reactive Protein Total Protein Albumin LDL Cholesterol Direct HDL Cholesterol Urine WBC (Auto) Crossmatch 09/30/18 10/01/18 10/01/18 23:56 04:05 13:22 RBC Hgb Hct MCV MCH RDW Lymph % (Auto) [place] % (Auto) Eos % (Auto) [place] # Eos # Seg Neutrophils % Seg Neutrophils # POC ABG pH POC ABG pCO2 POC ABG pO2 Sodium Potassium Chloride BUN Glucose POC Glucose 226 H 182 H 122 H Calcium AST ALT Alkaline Phosphatase Total Creatine Kinase Troponin T C-Reactive Protein Total Protein Albumin LDL Cholesterol Direct HDL Cholesterol Urine WBC (Auto) Crossmatch 10/01/18 10/01/18 10/01/18 17:58 18:49 23:42 RBC Hgb Hct MCV MCH RDW Lymph % (Auto) [place] % (Auto) Eos % (Auto) [place] # Eos # Seg Neutrophils % Seg Neutrophils # POC ABG pH POC ABG pCO2 POC ABG pO2 Sodium Potassium Chloride BUN Glucose POC Glucose 62 L 140 H 172 H Calcium AST ALT Alkaline Phosphatase Total Creatine Kinase Troponin T C-Reactive Protein Total Protein Albumin LDL Cholesterol Direct HDL Cholesterol Urine WBC (Auto) Crossmatch 10/02/18 10/02/18 10/02/18 06:25 08:45 08:45 RBC 2.65 L Hgb 7.0 L Hct 21.2 L MCV 80 L MCH 26 L RDW 21.0 H Lymph % (Auto) [place] % (Auto) 9.7 H Eos % (Auto) [place] # 1.0 H Eos # Seg Neutrophils % 71.9 H Seg Neutrophils # POC ABG pH POC ABG pCO2 POC ABG pO2 Sodium Potassium Chloride BUN 29 H Glucose 229 H POC Glucose 226 H Calcium 7.9 L AST ALT Alkaline Phosphatase Total Creatine Kinase Troponin T C-Reactive Protein Total Protein Albumin LDL Cholesterol Direct HDL Cholesterol Urine WBC (Auto) Crossmatch 10/02/18 10/02/18 10/02/18 12:06 17:42 21:02 RBC Hgb Hct MCV MCH RDW Lymph % (Auto) [place] % (Auto) Eos % (Auto) [place] # Eos # Seg Neutrophils % Seg Neutrophils # POC ABG pH POC ABG pCO2 POC ABG pO2 Sodium Potassium Chloride BUN Glucose POC Glucose 217 H 216 H 116 H Calcium AST ALT Alkaline Phosphatase Total Creatine Kinase Troponin T C-Reactive Protein Total Protein Albumin LDL Cholesterol Direct HDL Cholesterol Urine WBC (Auto) Crossmatch 10/03/18 10/03/18 10/03/18 00:29 00:49 04:37 RBC 2.87 L Hgb 7.6 L Hct 23.0 L MCV 80 L MCH 26 L RDW 20.5 H Lymph % (Auto) 11.6 L [place] % (Auto) 7.5 H Eos % (Auto) [place] # Eos # Seg Neutrophils % 78.0 H Seg Neutrophils # 8.4 H POC ABG pH 7.525 H POC ABG pCO2 < 30 L POC ABG pO2 63 L Sodium Potassium Chloride BUN Glucose POC Glucose 117 H Calcium AST ALT Alkaline Phosphatase Total Creatine Kinase Troponin T C-Reactive Protein Total Protein Albumin LDL Cholesterol Direct HDL Cholesterol Urine WBC (Auto) Crossmatch 10/03/18 10/03/18 10/03/18 05:49 12:20 15:26 RBC Hgb Hct MCV MCH RDW Lymph % (Auto) [place] % (Auto) Eos % (Auto) [place] # Eos # Seg Neutrophils % Seg Neutrophils # POC ABG pH POC ABG pCO2 POC ABG pO2 Sodium Potassium Chloride BUN Glucose POC Glucose 218 H 238 H Calcium AST ALT Alkaline Phosphatase Total Creatine Kinase Troponin T C-Reactive Protein 14.70 H Total Protein Albumin LDL Cholesterol Direct HDL Cholesterol Urine WBC (Auto) Crossmatch 10/03/18 10/03/18 10/04/18 16:35 21:13 00:26 RBC Hgb Hct MCV MCH RDW Lymph % (Auto) [place] % (Auto) Eos % (Auto) [place] # Eos # Seg Neutrophils % Seg Neutrophils # POC ABG pH POC ABG pCO2 POC ABG pO2 Sodium Potassium Chloride BUN Glucose POC Glucose 219 H 158 H 181 H Calcium AST ALT Alkaline Phosphatase Total Creatine Kinase Troponin T C-Reactive Protein Total Protein Albumin LDL Cholesterol Direct HDL Cholesterol Urine WBC (Auto) Crossmatch 10/04/18 10/04/18 10/04/18 05:33 12:10 15:58 RBC Hgb Hct MCV MCH RDW Lymph % (Auto) [place] % (Auto) Eos % (Auto) [place] # Eos # Seg Neutrophils % Seg Neutrophils # POC ABG pH POC ABG pCO2 POC ABG pO2 Sodium Potassium Chloride BUN Glucose POC Glucose 209 H 270 H 266 H Calcium AST ALT Alkaline Phosphatase Total Creatine Kinase Troponin T C-Reactive Protein Total Protein Albumin LDL Cholesterol Direct HDL Cholesterol Urine WBC (Auto) Crossmatch 10/05/18 10/05/18 10/05/18 06:18 11:52 17:17 RBC Hgb Hct MCV MCH RDW Lymph % (Auto) [place] % (Auto) Eos % (Auto) [place] # Eos # Seg Neutrophils % Seg Neutrophils # POC ABG pH POC ABG pCO2 POC ABG pO2 Sodium Potassium Chloride BUN Glucose POC Glucose 107 H 218 H 183 H Calcium AST ALT Alkaline Phosphatase Total Creatine Kinase Troponin T C-Reactive Protein Total Protein Albumin LDL Cholesterol Direct HDL Cholesterol Urine WBC (Auto) Crossmatch 10/06/18 10/06/18 10/06/18 00:11 06:01 06:01 RBC 2.46 L Hgb 6.4 L Hct 19.8 L* MCV 80 L MCH 26 L RDW 21.7 H Lymph % (Auto) [place] % (Auto) 10.4 H Eos % (Auto) [place] # 1.1 H Eos # 0.5 H Seg Neutrophils % Seg Neutrophils # POC ABG pH POC ABG pCO2 POC ABG pO2 Sodium 147 H Potassium 3.2 L Chloride 107.7 H BUN 37 H Glucose 153 H POC Glucose 205 H Calcium 7.8 L AST 52 H ALT Alkaline Phosphatase 153 H Total Creatine Kinase Troponin T C-Reactive Protein Total Protein 5.9 L Albumin 1.8 L LDL Cholesterol Direct HDL Cholesterol Urine WBC (Auto) Crossmatch 10/06/18 10/06/18 10/06/18 06:10 08:28 09:48 RBC Hgb Hct MCV MCH RDW Lymph % (Auto) [place] % (Auto) Eos % (Auto) [place] # Eos # Seg Neutrophils % Seg Neutrophils # POC ABG pH POC ABG pCO2 POC ABG pO2 Sodium Potassium Chloride BUN Glucose POC Glucose 171 H 185 H Calcium AST ALT Alkaline Phosphatase Total Creatine Kinase Troponin T C-Reactive Protein Total Protein Albumin LDL Cholesterol Direct HDL Cholesterol Urine WBC (Auto) Crossmatch See Detail 10/06/18 10/06/18 10/07/18 12:31 17:50 00:00 RBC Hgb Hct MCV MCH RDW Lymph % (Auto) [place] % (Auto) Eos % (Auto) [place] # Eos # Seg Neutrophils % Seg Neutrophils # POC ABG pH POC ABG pCO2 POC ABG pO2 Sodium Potassium Chloride BUN Glucose POC Glucose 131 H 244 H 261 H Calcium AST ALT Alkaline Phosphatase Total Creatine Kinase Troponin T C-Reactive Protein Total Protein Albumin LDL Cholesterol Direct HDL Cholesterol Urine WBC (Auto) Crossmatch 10/07/18 10/07/18 10/07/18 05:21 05:21 09:31 RBC 2.99 L Hgb 8.1 L Hct 24.8 L MCV 83 L MCH 27 L RDW 21.9 H Lymph % (Auto) [place] % (Auto) 10.5 H Eos % (Auto) 4.7 H [place] # 1.0 H Eos # Seg Neutrophils % Seg Neutrophils # POC ABG pH POC ABG pCO2 POC ABG pO2 Sodium 146 H Potassium 3.0 L Chloride 107.6 H BUN 39 H Glucose 191 H POC Glucose 200 H Calcium 8.3 L AST 45 H ALT Alkaline Phosphatase 149 H Total Creatine Kinase Troponin T C-Reactive Protein Total Protein Albumin 1.7 L LDL Cholesterol Direct HDL Cholesterol Urine WBC (Auto) Crossmatch 10/07/18 11:45 RBC Hgb Hct MCV MCH RDW Lymph % (Auto) [place] % (Auto) Eos % (Auto) [place] # Eos # Seg Neutrophils % Seg Neutrophils # POC ABG pH POC ABG pCO2 POC ABG pO2 Sodium Potassium Chloride BUN Glucose POC Glucose 236 H Calcium AST ALT Alkaline Phosphatase Total Creatine Kinase Troponin T C-Reactive Protein Total Protein Albumin LDL Cholesterol Direct HDL Cholesterol Urine WBC (Auto) Crossmatch Prior PFT's, U/S of legs: report reviewed (no evidence of DVTs bilaterally) Allied health notes reviewed: nursing
--- NOTE | 2018-10-07 16:53 | Progress Note ---
Assessment and Plan Assessment and plan: Mr. casillas is a 77-year-old male with recent prolonged hospitalization due to cardiac arrest. Previous history of CVA,. Recently discharged 10 days ago from our hospital with poor prognosis. Patient was comatose up on discharge with hypoxic encephalopathy,. According to neurology consult poor prognosis, poor left ventricular recovery. Preserved brainstem function but otherwise unresponsive. EEG suggestive of hypoxic encephalopathy. He returns from [facility] today For severe hyperglycemia. Treated with subcutaneous insulin at the facility. Noted to have 102.5 rectal temperature. He is currently nonverbal. He does not follow commands. Patient has aspiration pneumonia on antibiotics, persistent fevers, ID following, full CODE STATUS --Febrile illness; persistent fever patient already has aspiration pneumonia on IV antibiotics MAXIMUM TEMPERATURE 101.0, and cultures, Antibiotics and supportive care ID following --Aspiration pneumonia; patient is on cefepime and vancomycin Status post Levaquin, aspiration precautions, PEG feeds, Supportive care, follow-up chest x-ray tomorrow, pulmonary consult Elevate the head end of the bed --Chronic respiratory failure; h/o tracheostomy on T piece Continue oxygen nebulizers supportive care Chest x-ray, patient has copious secretions --Anemia; hemoglobin 6.4, No evidence of bleeding s/p 1 unit PRBC transfusion, closely monitor H&H Stool for occult blood --Generalized edema and fluid overload; IV diuretics Monitor input output --Type 2 diabetes mellitus uncontrolled /Hyperglycemia blood sugars are well controlled, continue Accu-Chek sliding scale coverage and tube feeding ,long acting insulin --Toxic metabolic encephalopathy; present on admission Multifactorial, neuro checks and supportive care --History of cardiac arrest in the past; anoxic encephalopathy Supportive care --Sepsis/possible UTI empiric antibiotics, and cultures positive for Yeast. Start Diflucan for total 10 days --Anemia; closely monitor H&H and transfuse as needed --Elevated troponins; probably nonspecific Closely monitor, cardiology consult if needed --DVT prophylaxis; Lovenox Full CODE STATUS Discharge planning; DC and transfer back to SNF when medically stable Monitor closely and adjust the management as needed Plan of care is reviewed with the patient's and his nurse Disposition: Possible discharge back to SNF when stable History Interval history: Patient seen and examined medical records reviewed No new complaints Status post tracheostomy on T piece Vital signs noted, febrile Hospitalist Physical - Constitutional Vitals: Temp Pulse Resp BP Pulse Ox 100.1 F H 94 H 18 154/65 99 10/07/18 12:21 10/07/18 15:16 10/07/18 15:16 10/07/18 12:21 10/07/18 15:17 General appearance: Present: no acute distress, well-nourished, obese, other (tracheostomy on T piece) - EENT Eyes: Present: PERRL, EOM intact - Neck Neck: Present: supple, normal ROM - Respiratory Respiratory effort: normal Respiratory: bilateral: diminished, rhonchi, negative: rales, wheezing - Cardiovascular Rhythm: regular Heart Sounds: Present: S1 & S2 - Extremities Extremities: no ischemia Extremity abnormal: edema - Abdominal General gastrointestinal: soft, non-tender, non-distended, normal bowel sounds - Integumentary Integumentary: Present: clear, warm - Psychiatric Psychiatric: other (noncommunicative) - Neurologic Neurologic: other (unresponsive) Results - Labs CBC & Chem 7: 10/07/18 05:21 10/07/18 05:21 Labs: Laboratory Last Values WBC 9.3 K/mm3 (4.5-11.0) 10/07/18 05:21 RBC 2.99 M/mm3 (3.65-5.03) L 10/07/18 05:21 Hgb 8.1 gm/dl (11.8-15.2) L 10/07/18 05:21 Hct 24.8 % (35.5-45.6) L 10/07/18 05:21 MCV 83 fl (84-94) L 10/07/18 05:21 MCH 27 pg (28-32) L 10/07/18 05:21 MCHC 33 % (32-34) 10/07/18 05:21 RDW 21.9 % (13.2-15.2) H 10/07/18 05:21 Plt Count 367 K/mm3 (140-440) 10/07/18 05:21 Lymph % (Auto) 18.7 % (13.4-35.0) 10/07/18 05:21 Rains % (Auto) 10.5 % (0.0-7.3) H 10/07/18 05:21 Eos % (Auto) 4.7 % (0.0-4.3) H 10/07/18 05:21 Baso % (Auto) 1.3 % (0.0-1.8) 10/07/18 05:21 Lymph # 1.7 K/mm3 (1.2-5.4) 10/07/18 05:21 Rains # 1.0 K/mm3 (0.0-0.8) H 10/07/18 05:21 Eos # 0.4 K/mm3 (0.0-0.4) 10/07/18 05:21 Baso # 0.1 K/mm3 (0.0-0.1) 10/07/18 05:21 Seg Neutrophils % 64.8 % (40.0-70.0) 10/07/18 05:21 Seg Neutrophils # 6.0 K/mm3 (1.8-7.7) 10/07/18 05:21 POC ABG pH 7.525 (7.35-7.45) H 10/03/18 04:37 POC ABG pCO2 < 30 (35-45) L 10/03/18 04:37 POC ABG pO2 63 (80-105) L 10/03/18 04:37 POC ABG HCO3 23.4 (22-26 mml/L) 10/03/18 04:37 POC ABG Total CO2 24 (23-27mmol/L) 10/03/18 04:37 POC ABG O2 Sat 94 10/03/18 04:37 POC ABG Base Excess 1 ((-2) - (+3)mmol/L) 10/03/18 04:37 40 % 10/03/18 04:37 Sodium 146 mmol/L (137-145) H 10/07/18 05:21 Potassium 3.0 mmol/L (3.6-5.0) L 10/07/18 05:21 Chloride 107.6 mmol/L (98-107) H 10/07/18 05:21 Carbon Dioxide 27 mmol/L (22-30) 10/07/18 05:21 14 mmol/L 10/07/18 05:21 BUN 39 mg/dL (9-20) H 10/07/18 05:21 1.5 mg/dL (0.8-1.5) 10/07/18 05:21 Estimated GFR 55 ml/min 10/07/18 05:21 26 % 10/07/18 05:21 Glucose 191 mg/dL (75-100) H 10/07/18 05:21 POC Glucose 236 (70-105) H 10/07/18 11:45 Lactic Acid 1.20 mmol/L (0.7-2.0) 10/03/18 15:26 Calcium 8.3 mg/dL (8.4-10.2) L 10/07/18 05:21 Phosphorus 3.40 mg/dL (2.5-4.5) 10/02/18 08:45 Magnesium 2.00 mg/dL (1.7-2.3) 10/07/18 05:21 0.20 mg/dL (0.1-1.2) 10/07/18 05:21 AST 45 units/L (5-40) H 10/07/18 05:21 ALT 49 units/L (7-56) 10/07/18 05:21 149 units/L (35-129) H 10/07/18 05:21 301 units/L (55-170) H 09/28/18 12:11 CK-MB (CK-2) 3.1 ng/mL (0.0-4.0) 09/28/18 12:11 CK-MB (CK-2) Rel Index 1.0 (0-4) 09/28/18 12:11 0.294 ng/mL (0.00-0.029) H* D 09/28/18 12:11 14.70 mg/dL (0.00-1.30) H 10/03/18 15:26 6.9 g/dL (6.3-8.2) 10/07/18 05:21 1.7 g/dL (3.9-5) L 10/07/18 05:21 0.3 % 10/07/18 05:21 Triglycerides 61 mg/dL (2-149) 09/27/18 23:00 Cholesterol 56 mg/dL (50-199) 09/27/18 23:00 25 mg/dL (50-130) L 09/27/18 23:00 19 mg/dL (40-59) L 09/27/18 23:00 2.94 % 09/27/18 23:00 Yellow (Yellow) 09/28/18 01:05 Cloudy (Clear) 09/28/18 01:05 7.0 (5.0-7.0) 09/28/18 01:05 Ur Specific Jamison 1.017 (1.003-1.030) 09/28/18 01:05 100 mg/dl mg/dL (Negative) 09/28/18 01:05 150 mg/dL (Negative) 09/28/18 01:05 Neg mg/dL (Negative) 09/28/18 01:05 Sm (Negative) 09/28/18 01:05 Neg (Negative) 09/28/18 01:05 Neg (Negative) 09/28/18 01:05 < 2.0 mg/dL (<2.0) 09/28/18 01:05 Ur Leukocyte Esterase Lg (Negative) 09/28/18 01:05 63.0 /HPF (0.0-6.0) H 09/28/18 01:05 182.0 /HPF (0.0-6.0) 09/28/18 01:05 U Epithel Cells (Auto) < 1.0 /HPF (0-13.0) 09/28/18 01:05 2+ /HPF (Negative) 09/28/18 01:05 Few /HPF 09/28/18 01:05 3+ /HPF 09/28/18 01:05 Random Vancomycin 23.4 ug/mL (0-40.0) 10/03/18 19:57 Blood Type O POSITIVE 10/06/18 09:48 Antibody Screen Negative 10/06/18 09:48 Crossmatch See Detail 10/06/18 09:48 Active Medications - Current Medications Current Medications: Generic Name Dose Route Start Last Admin Trade Name Freq PRN Reason Stop Dose Admin Acetaminophen 650 mg 09/28/18 03:16 10/06/18 16:03 Tylenol NM 650 mg Q4H PRN Administration Fever >101 Albuterol 2.5 mg 09/28/18 03:14 Proventil IH Q6HRT PRN Shortness Of Breath Albuterol 2.5 mg 10/01/18 20:00 10/07/18 15:04 Proventil IH 2.5 mg Q6HRT LENCHO Administration Amantadine HCl 100 mg 09/28/18 10:00 10/07/18 13:35 Symmetrel FEEDTUBE 100 mg DAILY LENCHO Administration Amlodipine Besylate 5 mg 09/28/18 10:00 10/07/18 10:43 Norvasc FEEDTUBE 5 mg DAILY LENCHO Administration Lipase/Protease/Amylase 1 each 09/28/18 15:34 Pancregarrett Alas 10,500 Unit FEEDTUBE PRN PRN For Clogged Feeding Tube Ascorbic Acid 500 mg 09/28/18 10:00 10/07/18 10:43 Vitamin C FEEDTUBE 500 mg QDAY LENCHO Administration Aspirin 81 mg 09/29/18 10:00 10/07/18 10:42 Baby Aspirin FEEDTUBE 81 mg QDAY LENCHO Administration Atorvastatin Calcium 40 mg 09/28/18 22:00 10/06/18 22:53 Lipitor FEEDTUBE 40 mg QHS LENCHO Administration Bisacodyl 10 mg 09/28/18 03:34 10/06/18 16:03 Dulcolax NM 10 mg QDAY PRN Administration Constipation Dextrose 50 ml 09/28/18 03:11 10/01/18 18:14 D50w (25gm) Syringe IV 50 ml PRN PRN Administration Hypoglycemia Docusate Sodium 100 mg 09/28/18 03:34 Colace FEEDTUBE QDAY PRN Constipation Famotidine 20 mg 10/03/18 16:00 10/07/18 10:43 Pepcid PO 20 mg QDAY LENCHO Administration Ferrous Sulfate 308 mg 09/28/18 10:00 10/07/18 10:42 Ferrous Sulfate FEEDTUBE 308 mg DAILY LENCHO Administration Fluconazole 100 mg 10/04/18 10:00 10/07/18 10:42 Diflucan PO 10/10/18 09:59 100 mg QDAY LENCHO Administration Furosemide 40 mg 10/02/18 18:00 10/07/18 05:01 Lasix IV 40 mg 0600,1800 LENCHO Administration Glycopyrrolate 2 mg 09/28/18 06:00 10/07/18 15:22 Robinul FEEDTUBE 2 mg Q8H LENCHO Administration Heparin Sodium (Porcine) 5,000 unit 09/28/18 10:00 10/07/18 10:43 Heparin SUB-Q 5,000 unit Q12HR LENCHO Administration Hydralazine HCl 10 mg 10/01/18 15:51 10/02/18 05:45 Apresoline IV 10 mg Q4HR PRN Administration Hypertension Cefepime HCl 2 gm in 100 mls @ 200 mls/hr 10/06/18 22:00 10/07/18 10:42 Maxipime/Ns 2 Gm/100 Ml IV 200 mls/hr Q12HR LENCHO Administration Protocol Metronidazole 500 mg in 100 mls @ 100 mls/hr 10/06/18 17:00 10/07/18 15:22 Flagyl 500 Mg/100 Ml IV 100 mls/hr Q8HR LENCHO Administration Protocol Insulin Glargine 45 units 10/07/18 22:00 Lantus SUB-Q QHS LENCHO Insulin Human Regular 0 units 10/01/18 12:00 10/07/18 13:34 Humulin R SUB-Q 3 units Q6HR LENCHO Administration Protocol Lacosamide 100 mg 09/28/18 10:00 10/07/18 10:43 Vimpat PO 100 mg Q12HR LENCHO Administration Lisinopril 10 mg 09/29/18 10:00 10/07/18 10:43 Zestril FEEDTUBE 10 mg QDAY LENCHO Administration Metoclopramide HCl 10 mg 10/02/18 23:57 10/03/18 00:59 Reglan IV 10 mg Q6H PRN Administration Nausea And Vomiting Ondansetron HCl 4 mg 09/28/18 03:17 10/02/18 21:47 Zofran IV 4 mg Q8H PRN Administration Nausea And Vomiting Simple Syrup 15 ml 09/28/18 15:34 09/29/18 04:50 Simple Syrup FEEDTUBE 15 ml PRN PRN Administration Hypoglycemia Simple Syrup 30 ml 09/28/18 15:34 Simple Syrup FEEDTUBE PRN PRN Hypoglycemia Sodium Bicarbonate 325 mg 09/28/18 15:34 Sodium Bicarbonate FEEDTUBE PRN PRN For Clogged Feeding Tube Sucralfate 1 gm 09/28/18 04:00 10/07/18 16:18 Carafate FEEDTUBE 1 gm Q8H LENCHO Administration Tamsulosin HCl 0.4 mg 09/29/18 10:00 10/07/18 10:43 Flomax PO 0.4 mg QDAY LENCHO Administration Nutrition/Malnutrition Assess - Dietary Evaluation Nutrition/Malnutrition Findings: Nutrition Notes Start: 09/28/18 15:13 Freq: Status: Active Protocol: Document 10/07/18 14:04 CASSI (Rec: 10/07/18 14:10 [facility] [email or web address]) Nutrition Notes Initial or Follow up Reassessment Current Diagnosis Diabetes,Sepsis,Respiratory Failure Other Pertinent Diagnosis Aspiration pneu, anemia Current Diet TF - Glucerna 1.2 at 65ml/hr Labs/Tests Na 146 K 3 BUN 39 BG 191 Pertinent Medications Lasix, 40mEq KCl q3h Height 5 ft 7 in Weight 77.39 kg [place] Body Weight (kg) 67.27 BMI 26.7 Weight change and time frame Current wt obtained from bed scale Subjective/Other Information TF infusing at goal rate; pt tolerating TF, per RN report. Pt receiving 100ml water flush q4h. Percent of energy/protein needs met: 100% energy 96% pro Burn Absent Trauma Absent #1 Nutrition Diagnosis Inadequate oral intake Diagnosis Progress(for reassessment Continues documentation) Is patient on ventilator? No Is Patient Ambulatory and/or Out of Bed No REE-([facility]-confined to bed) 2911.432 Calculation Used for Recommendations [facility] Additional Notes Pro needs 1.25-1.5g/k- 116g/day Fluid needs 1ml/kcal Nutrition Intervention Nutrition Support: Continue Glucerna 1.2 at 65 ml /hr. Water flush of 100 mls q 4 hrs . Kcal 1,872 Protein (gm) 94 Fluid (mL) 1,256 Goal #1 TF tolerance Goal #2 TF to meet 80-100% energy and pro needs Follow-Up By: 10/14/18 Additional Comments F/U: stable TF, wt
[2018-10-07] MEDS: TYLENOL PR PRN (18:51)
[2018-10-08] MEDS: HumuLIN R SUB-Q SCH ×4 (00:59→17:45)
[2018-10-08] MEDS: PROVENTIL IH SCH ×2 (04:04→08:25)
[2018-10-08] MEDS: CARAFATE FEEDTUBE SCH ×3 (04:26→20:01)
[2018-10-08 04:50] LABS: Basophils # (Auto) 0.1 K/mm3 (0.0-0.1); Basophils % (Auto) 1.3 % (0.0-1.8); Eosinophils # (Auto) 0.8 K/mm3 (0.0-0.4); Eosinophils % (Auto) 9.6 % (0.0-4.3); Hematocrit 22.5 % (35.5-45.6); Hemoglobin 7.6 gm/dl (11.8-15.2); Lymphocytes # (Auto) 1.4 K/mm3 (1.2-5.4); Mean Corpuscular HGB Conc 34 % (32-34); Mean Corpuscular Volume 82 fl (84-94); Monocytes % (Auto) 12.7 % (0.0-7.3); Platelet Count 326 K/mm3 (140-440); Red Blood Count 2.75 M/mm3 (3.65-5.03)
[2018-10-08 04:57] LABS: Red Cell Distribution Width 22.2 % (13.2-15.2)
[2018-10-08 05:13] LABS: Albumin 1.8 g/dL (3.9-5); Calcium 7.5 mg/dL (8.4-10.2)
[2018-10-08] MEDS: FLAGYL 500 MG/100 ML 500 MG/100 ML BAG IV SCH ×3 (06:07→21:56)
[2018-10-08] MEDS: LASIX IV SCH ×2 (06:07→17:27)
[2018-10-08] MEDS: ROBINUL FEEDTUBE SCH ×3 (06:23→21:57)
--- NOTE | 2018-10-08 08:53 | Progress Note ---
Assessment and Plan Cultures: 09/27/2018 blood culture: No growth 09/28/2018 urine culture: Yeast: Non-albicans Lea 09/28/2018 MRSA nasal culture: Negative 10/04/2018 tracheal aspirate: Oropharyngeal contamination 10/06/2018 blood culture: no growth to date 10/06/2018 Urine: Yeast: non-albicans Lea A/P: 77-year-old male with recent CVA, prolonged hospitalization following cardiac arrest and recent discharge from the hospital to a halfway, now with: 1) Sepsis: Improved. Low grade fevers continuing. Source unclear, likely aspiration pneumonia, healthcare associated pneumonia. Possible catheter associated UTI versus multiple skin wounds. Duplex scan reveals no sonographic evidence for DVT in either lower extremity. 2) HCAP v/s aspiration pneumonia: Chest x-ray shows evidence of right upper lobe infiltrate. Patient with chronic respiratory failure status post tracheostomy. Completed 7 days of cefepime and vancomycin. 3) Chronic anoxic encephalopathy 4) Multiple decubitus ulcers: Continue wound care 5) Candiduria: Armas catheter exchanged 10/06/18 Recs: Continue IV cefepime and Flagyl to cover for anaerobes as well for aspiration pneumonia When afebrile for 24 hours, switch to Augmentin 875mg PO Liquid BID for 5 days Continue wound care Overall poor prognosis [facility] M: [phone] O:[phone] Subjective Date of service: 10/08/18 Principal diagnosis: Ac on ch hypoxemic resp failure; HAP; Urinary tract infection; DM II Interval history: Patient seen and examined. Unresponsive and nonverbal. + trach. Low grade fevers continuing. Family at bedside Objective - Exam Narrative Exam: Constitutional: Unresponsive Head, Ears, Nose: Normocephalic, atraumatic. External ears, nose normal Eyes: Conjunctivae/corneas clear. No icterus. No ptosis. Neck: Trach + Oral: Unable to examine Cardiovascular: S1, S2 normal. Respiratory: Coarse sounds bilaterally GI: Soft, bowel sounds normal. No peritoneal signs. G-tube present, Armas catheter present Musculoskeletal: No pedal edema, no cyanosis. Skin: Multiple skin wounds involving sacrum, bilateral heel regions. Hem/Lymphatic: No palpable cervical or supraclavicular nodes. No lymphangitis Psych: Unresponsive Neurological: Unresponsive, nonverbal - Constitutional Vitals: Vital Signs Temp Pulse Resp BP Pulse Ox 99.5 F 83 20 116/46 100 10/08/18 07:33 10/08/18 08:36 10/08/18 08:36 10/08/18 07:33 10/08/18 08:30 Temperature -Last 24 Hours Temperature 99.5 F Temperature 99.1 F Temperature 99.2 F Temperature 100.7 F Temperature 100.6 F Temperature 100.1 F - Labs CBC & Chem 7: 10/08/18 04:00 10/08/18 04:00 Labs: Abnormal lab results 10/07/18 10/07/18 10/07/18 Range/Units 09:31 11:45 17:45 RBC (3.65-5.03) M/mm3 Hgb (11.8-15.2) gm/dl Hct (35.5-45.6) % MCV (84-94) fl RDW (13.2-15.2) % Sebastian % (Auto) (0.0-7.3) % Eos % (Auto) (0.0-4.3) % Sebastian # (0.0-0.8) K/mm3 Eos # (0.0-0.4) K/mm3 Sodium (137-145) mmol/L Chloride (98-107) mmol/L BUN (9-20) mg/dL Glucose (75-100) mg/dL POC Glucose 200 H 236 H 269 H (70-105) Calcium (8.4-10.2) mg/dL Alkaline Phosphatase (35-129) units/L Total Protein (6.3-8.2) g/dL Albumin (3.9-5) g/dL 10/08/18 10/08/18 10/08/18 Range/Units 00:55 04:00 04:00 RBC 2.75 L (3.65-5.03) M/mm3 Hgb 7.6 L (11.8-15.2) gm/dl Hct 22.5 L (35.5-45.6) % MCV 82 L (84-94) fl RDW 22.2 H (13.2-15.2) % Sebastian % (Auto) 12.7 H (0.0-7.3) % Eos % (Auto) 9.6 H (0.0-4.3) % Sebastian # 1.0 H (0.0-0.8) K/mm3 Eos # 0.8 H (0.0-0.4) K/mm3 Sodium 146 H (137-145) mmol/L Chloride 110.0 H (98-107) mmol/L BUN 42 H (9-20) mg/dL Glucose 209 H (75-100) mg/dL POC Glucose 226 H (70-105) Calcium 7.5 L (8.4-10.2) mg/dL Alkaline Phosphatase 138 H (35-129) units/L Total Protein 5.8 L (6.3-8.2) g/dL Albumin 1.8 L (3.9-5) g/dL 10/08/18 Range/Units 05:37 RBC (3.65-5.03) M/mm3 Hgb (11.8-15.2) gm/dl Hct (35.5-45.6) % MCV (84-94) fl RDW (13.2-15.2) % Sebastian % (Auto) (0.0-7.3) % Eos % (Auto) (0.0-4.3) % Sebastian # (0.0-0.8) K/mm3 Eos # (0.0-0.4) K/mm3 Sodium (137-145) mmol/L Chloride (98-107) mmol/L BUN (9-20) mg/dL Glucose (75-100) mg/dL POC Glucose 243 H (70-105) Calcium (8.4-10.2) mg/dL Alkaline Phosphatase (35-129) units/L Total Protein (6.3-8.2) g/dL Albumin (3.9-5) g/dL
--- NOTE | 2018-10-08 10:39 | Progress Note ---
Assessment and Plan Assessment and plan: Mr. casillas is a 77-year-old male with recent prolonged hospitalization due to cardiac arrest. Previous history of CVA,. Recently discharged 10 days ago from our hospital with poor prognosis. Patient was comatose up on discharge with hypoxic encephalopathy,. According to neurology consult poor prognosis, poor left ventricular recovery. Preserved brainstem function but otherwise unresponsive. EEG suggestive of hypoxic encephalopathy. He returns from [facility] today For severe hyperglycemia. Treated with subcutaneous insulin at the facility. Noted to have 102.5 rectal temperature. He is currently nonverbal. He does not follow commands. Patient has aspiration pneumonia on antibiotics, persistent fevers, ID following, full CODE STATUS --Febrile illness; persistent fever patient already has aspiration pneumonia on IV antibiotics Monitor for additional 24hrs and if no further fever will plan discharge per ID Discussed extensively with the patients spouse and she understands that the patient is high risk for readmissions. Continue, Antibiotics and supportive care ID following --Aspiration pneumonia; patient is on cefepime and vancomycin Status post Levaquin, aspiration precautions, PEG feeds, Supportive care, follow-up chest x-ray tomorrow, pulmonary consult Elevate the head end of the bed --Chronic respiratory failure; h/o tracheostomy on T piece Continue oxygen nebulizers supportive care Chest x-ray, patient has copious secretions --Anemia; hemoglobin 6.4, No evidence of bleeding s/p 1 unit PRBC transfusion, closely monitor H&H Stool for occult blood --Generalized edema and fluid overload; IV diuretics Monitor input output --Type 2 diabetes mellitus uncontrolled /Hyperglycemia blood sugars are well controlled, continue Accu-Chek sliding scale coverage and tube feeding ,long acting insulin --Toxic metabolic encephalopathy; present on admission Multifactorial, neuro checks and supportive care --History of cardiac arrest in the past; anoxic encephalopathy Supportive care --Sepsis/possible UTI empiric antibiotics, and cultures positive for Yeast. Start Diflucan for total 10 days --Anemia; closely monitor H&H and transfuse as needed --Elevated troponins; probably nonspecific Closely monitor, cardiology consult if needed --DVT prophylaxis; Lovenox Full CODE STATUS Discharge planning; DC and transfer back to SNF when medically stable Monitor closely and adjust the management as needed Plan of care is reviewed with the patient's and his nurse History Interval history: Patient seen and examined, remains in encephalopathic state, but stable, family at bedside. No new complaints. Hospitalist Physical - Physical exam Narrative exam: Eyes: Present: PERRL, EOM intact - Neck Neck: Present: supple, normal ROM - Respiratory Respiratory effort: normal Respiratory: bilateral: diminished, rhonchi, negative: rales, wheezing. Trach inplace. - Cardiovascular Rhythm: regular Heart Sounds: Present: S1 & S2 - Extremities Extremities: no ischemia Extremity abnormal: edema - Abdominal General gastrointestinal: soft, non-tender, non-distended, normal bowel sounds - Integumentary Integumentary: Present: clear, warm - Psychiatric Psychiatric: other (noncommunicative) - Neurologic Neurologic: other (unresponsive) - Constitutional Vitals: Temp Pulse Resp BP Pulse Ox 99.5 F 83 20 116/46 100 10/08/18 07:33 10/08/18 08:36 10/08/18 08:36 10/08/18 07:33 10/08/18 08:30 General appearance: Present: no acute distress, well-nourished, obese, other (tracheostomy on T piece) Results - Labs CBC & Chem 7: 10/08/18 04:00 10/08/18 04:00 Labs: Laboratory Last Values WBC 8.2 K/mm3 (4.5-11.0) 10/08/18 04:00 RBC 2.75 M/mm3 (3.65-5.03) L 10/08/18 04:00 Hgb 7.6 gm/dl (11.8-15.2) L 10/08/18 04:00 Hct 22.5 % (35.5-45.6) L 10/08/18 04:00 MCV 82 fl (84-94) L 10/08/18 04:00 MCH 28 pg (28-32) 10/08/18 04:00 MCHC 34 % (32-34) 10/08/18 04:00 RDW 22.2 % (13.2-15.2) H 10/08/18 04:00 Plt Count 326 K/mm3 (140-440) 10/08/18 04:00 Lymph % (Auto) 17.0 % (13.4-35.0) 10/08/18 04:00 [place] % (Auto) 12.7 % (0.0-7.3) H 10/08/18 04:00 Eos % (Auto) 9.6 % (0.0-4.3) H 10/08/18 04:00 Baso % (Auto) 1.3 % (0.0-1.8) 10/08/18 04:00 Lymph # 1.4 K/mm3 (1.2-5.4) 10/08/18 04:00 [place] # 1.0 K/mm3 (0.0-0.8) H 10/08/18 04:00 Eos # 0.8 K/mm3 (0.0-0.4) H 10/08/18 04:00 Baso # 0.1 K/mm3 (0.0-0.1) 10/08/18 04:00 Seg Neutrophils % 59.4 % (40.0-70.0) 10/08/18 04:00 Seg Neutrophils # 4.9 K/mm3 (1.8-7.7) 10/08/18 04:00 POC ABG pH 7.525 (7.35-7.45) H 10/03/18 04:37 POC ABG pCO2 < 30 (35-45) L 10/03/18 04:37 POC ABG pO2 63 (80-105) L 10/03/18 04:37 POC ABG HCO3 23.4 (22-26 mml/L) 10/03/18 04:37 POC ABG Total CO2 24 (23-27mmol/L) 10/03/18 04:37 POC ABG O2 Sat 94 10/03/18 04:37 POC ABG Base Excess 1 ((-2) - (+3)mmol/L) 10/03/18 04:37 40 % 10/03/18 04:37 Sodium 146 mmol/L (137-145) H 10/08/18 04:00 Potassium 3.8 mmol/L (3.6-5.0) D 10/08/18 04:00 Chloride 110.0 mmol/L (98-107) H 10/08/18 04:00 Carbon Dioxide 27 mmol/L (22-30) 10/08/18 04:00 13 mmol/L 10/08/18 04:00 BUN 42 mg/dL (9-20) H 10/08/18 04:00 1.5 mg/dL (0.8-1.5) 10/08/18 04:00 Estimated GFR 55 ml/min 10/08/18 04:00 28 % 10/08/18 04:00 Glucose 209 mg/dL (75-100) H 10/08/18 04:00 POC Glucose 243 (70-105) H 10/08/18 05:37 Lactic Acid 1.20 mmol/L (0.7-2.0) 10/03/18 15:26 Calcium 7.5 mg/dL (8.4-10.2) L 10/08/18 04:00 Phosphorus 3.40 mg/dL (2.5-4.5) 10/02/18 08:45 Magnesium 2.10 mg/dL (1.7-2.3) 10/08/18 04:00 0.20 mg/dL (0.1-1.2) 10/08/18 04:00 AST 38 units/L (5-40) 10/08/18 04:00 ALT 45 units/L (7-56) 10/08/18 04:00 138 units/L (35-129) H 10/08/18 04:00 301 units/L (55-170) H 09/28/18 12:11 CK-MB (CK-2) 3.1 ng/mL (0.0-4.0) 09/28/18 12:11 CK-MB (CK-2) Rel Index 1.0 (0-4) 09/28/18 12:11 0.294 ng/mL (0.00-0.029) H* D 09/28/18 12:11 14.70 mg/dL (0.00-1.30) H 10/03/18 15:26 5.8 g/dL (6.3-8.2) L 10/08/18 04:00 1.8 g/dL (3.9-5) L 10/08/18 04:00 0.5 % 10/08/18 04:00 Triglycerides 61 mg/dL (2-149) 09/27/18 23:00 Cholesterol 56 mg/dL (50-199) 09/27/18 23:00 25 mg/dL (50-130) L 09/27/18 23:00 19 mg/dL (40-59) L 09/27/18 23:00 2.94 % 09/27/18 23:00 Yellow (Yellow) 09/28/18 01:05 Cloudy (Clear) 09/28/18 01:05 7.0 (5.0-7.0) 09/28/18 01:05 Ur Specific Elsie 1.017 (1.003-1.030) 09/28/18 01:05 100 mg/dl mg/dL (Negative) 09/28/18 01:05 150 mg/dL (Negative) 09/28/18 01:05 Neg mg/dL (Negative) 09/28/18 01:05 Sm (Negative) 09/28/18 01:05 Neg (Negative) 09/28/18 01:05 Neg (Negative) 09/28/18 01:05 < 2.0 mg/dL (<2.0) 09/28/18 01:05 Ur Leukocyte Esterase Lg (Negative) 09/28/18 01:05 63.0 /HPF (0.0-6.0) H 09/28/18 01:05 182.0 /HPF (0.0-6.0) 09/28/18 01:05 U Epithel Cells (Auto) < 1.0 /HPF (0-13.0) 09/28/18 01:05 2+ /HPF (Negative) 09/28/18 01:05 Few /HPF 09/28/18 01:05 3+ /HPF 09/28/18 01:05 Random Vancomycin 23.4 ug/mL (0-40.0) 10/03/18 19:57 Blood Type O POSITIVE 10/06/18 09:48 Antibody Screen Negative 10/06/18 09:48 Crossmatch See Detail 10/06/18 09:48 Active Medications - Current Medications Current Medications: Generic Name Dose Route Start Last Admin Trade Name Freq PRN Reason Stop Dose Admin Acetaminophen 650 mg 09/28/18 03:16 10/07/18 18:51 Tylenol NC 650 mg Q4H PRN Administration Fever >101 Albuterol 2.5 mg 10/08/18 11:00 Proventil IH Q3HRT PRN Shortness Of Breath Albuterol/Ipratropium 1 ampul 10/08/18 14:00 Duoneb *Not For Prn Use* IH Q6HRT LENCHO Amantadine HCl 100 mg 09/28/18 10:00 10/07/18 13:35 Symmetrel FEEDTUBE 100 mg DAILY LENCHO Administration Amlodipine Besylate 5 mg 09/28/18 10:00 10/07/18 10:43 Norvasc FEEDTUBE 5 mg DAILY LENCHO Administration Lipase/Protease/Amylase 1 each 09/28/18 15:34 Pancregarrett Alas 10,500 Unit FEEDTUBE PRN PRN For Clogged Feeding Tube Ascorbic Acid 500 mg 09/28/18 10:00 10/07/18 10:43 Vitamin C FEEDTUBE 500 mg QDAY LENCHO Administration Aspirin 81 mg 09/29/18 10:00 10/07/18 10:42 Baby Aspirin FEEDTUBE 81 mg QDAY LENCHO Administration Atorvastatin Calcium 40 mg 09/28/18 22:00 10/07/18 22:47 Lipitor FEEDTUBE 40 mg QHS LENCHO Administration Bisacodyl 10 mg 09/28/18 03:34 10/06/18 16:03 Dulcolax NC 10 mg QDAY PRN Administration Constipation Dextrose 50 ml 09/28/18 03:11 10/01/18 18:14 D50w (25gm) Syringe IV 50 ml PRN PRN Administration Hypoglycemia Docusate Sodium 100 mg 09/28/18 03:34 Colace FEEDTUBE QDAY PRN Constipation Famotidine 20 mg 10/03/18 16:00 10/07/18 10:43 Pepcid PO 20 mg QDAY LENCHO Administration Ferrous Sulfate 308 mg 09/28/18 10:00 10/07/18 10:42 Ferrous Sulfate FEEDTUBE 308 mg DAILY LENCHO Administration Fluconazole 100 mg 10/04/18 10:00 10/07/18 10:42 Diflucan PO 10/10/18 09:59 100 mg QDAY LENCHO Administration Furosemide 40 mg 10/02/18 18:00 10/08/18 06:07 Lasix IV 40 mg 0600,1800 LENCHO Administration Glycopyrrolate 2 mg 09/28/18 06:00 10/08/18 06:23 Robinul FEEDTUBE 2 mg Q8H LENCHO Administration Heparin Sodium (Porcine) 5,000 unit 09/28/18 10:00 10/07/18 22:47 Heparin SUB-Q 5,000 unit Q12HR LENCHO Administration Hydralazine HCl 10 mg 10/01/18 15:51 10/02/18 05:45 Apresoline IV 10 mg Q4HR PRN Administration Hypertension Cefepime HCl 2 gm in 100 mls @ 200 mls/hr 10/06/18 22:00 10/07/18 22:52 Maxipime/Ns 2 Gm/100 Ml IV 200 mls/hr Q12HR LENCHO Administration Protocol Metronidazole 500 mg in 100 mls @ 100 mls/hr 10/06/18 17:00 10/08/18 06:07 Flagyl 500 Mg/100 Ml IV 100 mls/hr Q8HR [facility] Administration Protocol Insulin Glargine 45 units 10/07/18 22:00 10/07/18 22:45 Lantus SUB-Q 45 units QHS LENCHO Administration Insulin Human Regular 0 units 10/01/18 12:00 10/08/18 06:08 Humulin R SUB-Q 3 units Q6HR [facility] Administration Protocol Lacosamide 100 mg 09/28/18 10:00 10/07/18 22:47 Vimpat PO 100 mg Q12HR LENCHO Administration Lisinopril 10 mg 09/29/18 10:00 10/07/18 10:43 Zestril FEEDTUBE 10 mg QDAY LENCHO Administration Metoclopramide HCl 10 mg 10/02/18 23:57 10/03/18 00:59 Reglan IV 10 mg Q6H PRN Administration Nausea And Vomiting Ondansetron HCl 4 mg 09/28/18 03:17 10/02/18 21:47 Zofran IV 4 mg Q8H PRN Administration Nausea And Vomiting Simple Syrup 15 ml 09/28/18 15:34 09/29/18 04:50 Simple Syrup FEEDTUBE 15 ml PRN PRN Administration Hypoglycemia Simple Syrup 30 ml 09/28/18 15:34 Simple Syrup FEEDTUBE PRN PRN Hypoglycemia Sodium Bicarbonate 325 mg 09/28/18 15:34 Sodium Bicarbonate FEEDTUBE PRN PRN For Clogged Feeding Tube Sucralfate 1 gm 09/28/18 04:00 10/08/18 04:26 Carafate FEEDTUBE 1 gm Q8H LENCHO Administration Tamsulosin HCl 0.4 mg 09/29/18 10:00 10/07/18 10:43 Flomax PO 0.4 mg QDAY LENCHO Administration Nutrition/Malnutrition Assess - Dietary Evaluation Nutrition/Malnutrition Findings: Nutrition Notes Start: 09/28/18 15:13 Freq: Status: Active Protocol: Document 10/07/18 14:04 CASSI (Rec: 10/07/18 14:10 CASSI [email or web address]) Nutrition Notes Initial or Follow up Reassessment Current Diagnosis Diabetes,Sepsis,Respiratory Failure Other Pertinent Diagnosis Aspiration pneu, anemia Current Diet TF - Glucerna 1.2 at 65ml/hr Labs/Tests Na 146 K 3 BUN 39 BG 191 Pertinent Medications Lasix, 40mEq KCl q3h Height 5 ft 7 in Weight 77.39 kg [place] Body Weight (kg) 67.27 BMI 26.7 Weight change and time frame Current wt obtained from bed scale Subjective/Other Information TF infusing at goal rate; pt tolerating TF, per RN report. Pt receiving 100ml water flush q4h. Percent of energy/protein needs met: 100% energy 96% pro Burn Absent Trauma Absent #1 Nutrition Diagnosis Inadequate oral intake Diagnosis Progress(for reassessment Continues documentation) Is patient on ventilator? No Is Patient Ambulatory and/or Out of Bed No REE-([place]. Jeor-confined to bed) [phone] Calculation Used for Recommendations [place] Additional Notes Pro needs 1.25-1.5g/k- 116g/day Fluid needs 1ml/kcal Nutrition Intervention Nutrition Support: Continue Glucerna 1.2 at 65 ml /hr. Water flush of 100 mls q 4 hrs . Kcal 1,872 Protein (gm) 94 Fluid (mL) 1,256 Goal #1 TF tolerance Goal #2 TF to meet 80-100% energy and pro needs Follow-Up By: 10/14/18 Additional Comments F/U: stable TF, wt
[2018-10-08] MEDS: MAXIPIME/NS 2 GM/100 ML 2 GM/100 ML BAG IV SCH ×2 (10:41→21:56)
[2018-10-08] MEDS: NORVASC FEEDTUBE SCH (10:44)
[2018-10-08] MEDS: VITAMIN C FEEDTUBE SCH (10:44)
[2018-10-08] MEDS: DIFLUCAN PO SCH (10:44)
[2018-10-08] MEDS: VIMPAT PO SCH ×2 (10:44→21:57)
[2018-10-08] MEDS: BABY ASPIRIN FEEDTUBE SCH (10:44)
[2018-10-08] MEDS: PEPCID PO SCH (10:44)
[2018-10-08] MEDS: SYMMETREL FEEDTUBE SCH (10:46)
[2018-10-08] MEDS: HEPARIN SUB-Q SCH ×2 (10:50→21:57)
[2018-10-08] MEDS: ZESTRIL FEEDTUBE SCH (10:52)
[2018-10-08] MEDS ORDERED: PROVENTIL IH PRN (11:00)
[2018-10-08] MEDS: FLOMAX PO SCH (11:09)
[2018-10-08] MEDS: FERROUS SULFATE FEEDTUBE SCH (12:20)
--- NOTE | 2018-10-08 13:26 | Progress Note ---
Assessment and Plan Acute on chronic hypoxemic respiratory failure. Likely aspiration pneumonia (HAP) Suspected bilateral pulmonary edema. Diabetes type 2. Chronic toxic metabolic encephalopathy. History of cardiac arrest. Urinary tract infection. Anemia. H/O CVA Elevated serum troponins, possible non-ST elevation myocardial infarction. Oropharyngeal dysphagia. Adult failure to thrive. - repeat CXR in am - continue empiric diuresis (taper shortly) - complete AB's per ID rec's - prn ABG's & CXR's at this point - continue Keppra for seizures - continue Amantadine - continue bronchodilators with routine trach care and pulmonary hygiene per RT - continue to wean supplemental oxygen to keep O2 sats 88-90% - continue enteral nutrition as tolerated - continue aspiration precautions - continue accuchecks with glycemic control per SSI for target glucose of 140- 180 mg/dL (Lantus re-introduced) - Maintenance of sleep -wake cycle modalities - Mobility as tolerated by hemodynamics - continue GI & VTE prophylaxis - Influenza and pneumonia vaccination per protocol - discharge planning ongoing concurrently CODE STATUS: FULL CODE Subjective Date of service: 10/08/18 Principal diagnosis: Ac on ch hypoxemic resp failure; HAP; Urinary tract infection; DM II Interval history: Patient is seen today for: Acute on chronic hypoxemic respiratory failure; Likely aspiration pneumonia (HAP); Suspected bilateral pulmonary edema.; Diabetes type 2; Chronic encephalopathy (Anoxic); Urinary tract infection. Seen and examined at bedside; 24hour events reviewed; nursing and respiratory c are staff consulted; no adverse overnight events reported to me; resting peacefully in bed; AMS is persistent; remains on supplemental oxygen; No emesis or overt aspiration Objective Vital Signs - 12hr 10/08/18 10/08/18 10/08/18 02:47 03:54 07:33 Temperature 99.1 F 99.5 F Pulse Rate 76 84 Pulse Rate [ Anterior Bilateral Throughout] Respiratory 20 22 Rate Respiratory Rate [Anterior Bilateral Throughout] Blood Pressure 128/62 116/46 O2 Sat by Pulse 100 98 Oximetry O2 Sat by Pulse 97 Oximetry [ Assessment] 10/08/18 10/08/18 10/08/18 08:23 08:25 08:30 Temperature Pulse Rate Pulse Rate [ 83 Anterior Bilateral Throughout] Respiratory Rate Respiratory 20 Rate [Anterior Bilateral Throughout] Blood Pressure O2 Sat by Pulse 100 100 Oximetry O2 Sat by Pulse Oximetry [ Assessment] 10/08/18 10/08/18 08:36 10:52 Temperature Pulse Rate Pulse Rate [ 83 Anterior Bilateral Throughout] Respiratory Rate Respiratory 20 Rate [Anterior Bilateral Throughout] Blood Pressure 116/46 O2 Sat by Pulse Oximetry O2 Sat by Pulse Oximetry [ Assessment] Constitutional: appears uncomfortable, other (elderly looking AAM, normocephalic with mildly increased resp effort at rest) Eyes: non-icteric ENT: oropharynx moist Neck: supple, no lymphadenopathy, no JVD, other (midline tracheostomy tube) Effort: mildly labored Ascultation: Bilateral: diminished breath sounds, rhonchi Percussion: Bilateral: not dull Cardiovascular: regular rate and rhythm Gastrointestinal: normoactive bowel sounds, soft, non-tender, non-distended Integumentary: rash Extremities: no cyanosis, pulses normal, no ischemia or petechiae, edema (2+) Neurologic: unable to assess Psychiatric: other (encephalopathic) CBC and BMP: 10/08/18 04:00 10/08/18 04:00 ABG, PT/INR, D-dimer: ABG POC ABG pH 7.525 (7.35-7.45) H 10/03/18 04:37 POC ABG pCO2 < 30 (35-45) L 10/03/18 04:37 POC ABG pO2 63 (80-105) L 10/03/18 04:37 POC ABG HCO3 23.4 (22-26 mml/L) 10/03/18 04:37 POC ABG Total CO2 24 (23-27mmol/L) 10/03/18 04:37 POC ABG O2 Sat 94 10/03/18 04:37 Abnormal lab findings: Abnormal Labs 09/27/18 09/27/18 09/27/18 22:54 23:00 23:00 RBC 2.71 L Hgb 7.4 L Hct 22.0 L MCV 81 L MCH 27 L RDW 21.4 H Lymph % (Auto) Coffee % (Auto) 13.8 H Eos % (Auto) Coffee # 1.3 H Eos # Seg Neutrophils % Seg Neutrophils # POC ABG pH POC ABG pCO2 POC ABG pO2 Sodium Potassium Chloride BUN 40 H Glucose 431 H POC Glucose 456 H Calcium AST 78 H ALT 107 H Alkaline Phosphatase 178 H Total Creatine Kinase Troponin T 0.407 H* C-Reactive Protein Total Protein Albumin 1.9 L LDL Cholesterol Direct 25 L HDL Cholesterol 19 L Urine WBC (Auto) Crossmatch 09/27/18 09/28/18 09/28/18 23:34 01:05 02:43 RBC Hgb Hct MCV MCH RDW Lymph % (Auto) Coffee % (Auto) Eos % (Auto) Coffee # Eos # Seg Neutrophils % Seg Neutrophils # POC ABG pH 7.525 H POC ABG pCO2 33.1 L POC ABG pO2 Sodium Potassium Chloride BUN Glucose POC Glucose 497 H Calcium AST ALT Alkaline Phosphatase Total Creatine Kinase Troponin T C-Reactive Protein Total Protein Albumin LDL Cholesterol Direct HDL Cholesterol Urine WBC (Auto) 63.0 H Crossmatch 09/28/18 09/28/18 09/28/18 04:11 07:13 11:47 RBC Hgb Hct MCV MCH RDW Lymph % (Auto) Coffee % (Auto) Eos % (Auto) Coffee # Eos # Seg Neutrophils % Seg Neutrophils # POC ABG pH POC ABG pCO2 POC ABG pO2 Sodium Potassium Chloride BUN Glucose POC Glucose 362 H 392 H 244 H Calcium AST ALT Alkaline Phosphatase Total Creatine Kinase Troponin T C-Reactive Protein Total Protein Albumin LDL Cholesterol Direct HDL Cholesterol Urine WBC (Auto) Crossmatch 09/28/18 09/28/18 09/29/18 12:11 16:32 00:18 RBC Hgb Hct MCV MCH RDW Lymph % (Auto) Coffee % (Auto) Eos % (Auto) Coffee # Eos # Seg Neutrophils % Seg Neutrophils # POC ABG pH POC ABG pCO2 POC ABG pO2 Sodium Potassium Chloride BUN Glucose POC Glucose 159 H 118 H Calcium AST ALT Alkaline Phosphatase Total Creatine Kinase 301 H Troponin T 0.294 H* D C-Reactive Protein Total Protein Albumin LDL Cholesterol Direct HDL Cholesterol Urine WBC (Auto) Crossmatch 09/29/18 09/29/18 09/29/18 04:28 11:23 18:58 RBC Hgb Hct MCV MCH RDW Lymph % (Auto) Coffee % (Auto) Eos % (Auto) Coffee # Eos # Seg Neutrophils % Seg Neutrophils # POC ABG pH POC ABG pCO2 POC ABG pO2 Sodium Potassium Chloride BUN Glucose POC Glucose 67 L 126 H 167 H Calcium AST ALT Alkaline Phosphatase Total Creatine Kinase Troponin T C-Reactive Protein Total Protein Albumin LDL Cholesterol Direct HDL Cholesterol Urine WBC (Auto) Crossmatch 09/29/18 09/29/18 09/30/18 20:51 23:41 04:56 RBC Hgb Hct MCV MCH RDW Lymph % (Auto) Coffee % (Auto) Eos % (Auto) Coffee # Eos # Seg Neutrophils % Seg Neutrophils # POC ABG pH POC ABG pCO2 POC ABG pO2 Sodium Potassium Chloride BUN Glucose POC Glucose 182 H 170 H 133 H Calcium AST ALT Alkaline Phosphatase Total Creatine Kinase Troponin T C-Reactive Protein Total Protein Albumin LDL Cholesterol Direct HDL Cholesterol Urine WBC (Auto) Crossmatch 09/30/18 09/30/18 09/30/18 12:37 16:25 20:35 RBC Hgb Hct MCV MCH RDW Lymph % (Auto) Coffee % (Auto) Eos % (Auto) Coffee # Eos # Seg Neutrophils % Seg Neutrophils # POC ABG pH POC ABG pCO2 POC ABG pO2 Sodium Potassium Chloride BUN Glucose POC Glucose 182 H 185 H 227 H Calcium AST ALT Alkaline Phosphatase Total Creatine Kinase Troponin T C-Reactive Protein Total Protein Albumin LDL Cholesterol Direct HDL Cholesterol Urine WBC (Auto) Crossmatch 09/30/18 10/01/18 10/01/18 23:56 04:05 13:22 RBC Hgb Hct MCV MCH RDW Lymph % (Auto) Coffee % (Auto) Eos % (Auto) Coffee # Eos # Seg Neutrophils % Seg Neutrophils # POC ABG pH POC ABG pCO2 POC ABG pO2 Sodium Potassium Chloride BUN Glucose POC Glucose 226 H 182 H 122 H Calcium AST ALT Alkaline Phosphatase Total Creatine Kinase Troponin T C-Reactive Protein Total Protein Albumin LDL Cholesterol Direct HDL Cholesterol Urine WBC (Auto) Crossmatch 10/01/18 10/01/18 10/01/18 17:58 18:49 23:42 RBC Hgb Hct MCV MCH RDW Lymph % (Auto) Coffee % (Auto) Eos % (Auto) Coffee # Eos # Seg Neutrophils % Seg Neutrophils # POC ABG pH POC ABG pCO2 POC ABG pO2 Sodium Potassium Chloride BUN Glucose POC Glucose 62 L 140 H 172 H Calcium AST ALT Alkaline Phosphatase Total Creatine Kinase Troponin T C-Reactive Protein Total Protein Albumin LDL Cholesterol Direct HDL Cholesterol Urine WBC (Auto) Crossmatch 10/02/18 10/02/18 10/02/18 06:25 08:45 08:45 RBC 2.65 L Hgb 7.0 L Hct 21.2 L MCV 80 L MCH 26 L RDW 21.0 H Lymph % (Auto) Coffee % (Auto) 9.7 H Eos % (Auto) Coffee # 1.0 H Eos # Seg Neutrophils % 71.9 H Seg Neutrophils # POC ABG pH POC ABG pCO2 POC ABG pO2 Sodium Potassium Chloride BUN 29 H Glucose 229 H POC Glucose 226 H Calcium 7.9 L AST ALT Alkaline Phosphatase Total Creatine Kinase Troponin T C-Reactive Protein Total Protein Albumin LDL Cholesterol Direct HDL Cholesterol Urine WBC (Auto) Crossmatch 10/02/18 10/02/18 10/02/18 12:06 17:42 21:02 RBC Hgb Hct MCV MCH RDW Lymph % (Auto) Coffee % (Auto) Eos % (Auto) Coffee # Eos # Seg Neutrophils % Seg Neutrophils # POC ABG pH POC ABG pCO2 POC ABG pO2 Sodium Potassium Chloride BUN Glucose POC Glucose 217 H 216 H 116 H Calcium AST ALT Alkaline Phosphatase Total Creatine Kinase Troponin T C-Reactive Protein Total Protein Albumin LDL Cholesterol Direct HDL Cholesterol Urine WBC (Auto) Crossmatch 10/03/18 10/03/18 10/03/18 00:29 00:49 04:37 RBC 2.87 L Hgb 7.6 L Hct 23.0 L MCV 80 L MCH 26 L RDW 20.5 H Lymph % (Auto) 11.6 L Coffee % (Auto) 7.5 H Eos % (Auto) Coffee # Eos # Seg Neutrophils % 78.0 H Seg Neutrophils # 8.4 H POC ABG pH 7.525 H POC ABG pCO2 < 30 L POC ABG pO2 63 L Sodium Potassium Chloride BUN Glucose POC Glucose 117 H Calcium AST ALT Alkaline Phosphatase Total Creatine Kinase Troponin T C-Reactive Protein Total Protein Albumin LDL Cholesterol Direct HDL Cholesterol Urine WBC (Auto) Crossmatch 10/03/18 10/03/18 10/03/18 05:49 12:20 15:26 RBC Hgb Hct MCV MCH RDW Lymph % (Auto) Coffee % (Auto) Eos % (Auto) Coffee # Eos # Seg Neutrophils % Seg Neutrophils # POC ABG pH POC ABG pCO2 POC ABG pO2 Sodium Potassium Chloride BUN Glucose POC Glucose 218 H 238 H Calcium AST ALT Alkaline Phosphatase Total Creatine Kinase Troponin T C-Reactive Protein 14.70 H Total Protein Albumin LDL Cholesterol Direct HDL Cholesterol Urine WBC (Auto) Crossmatch 10/03/18 10/03/18 10/04/18 16:35 21:13 00:26 RBC Hgb Hct MCV MCH RDW Lymph % (Auto) Coffee % (Auto) Eos % (Auto) Coffee # Eos # Seg Neutrophils % Seg Neutrophils # POC ABG pH POC ABG pCO2 POC ABG pO2 Sodium Potassium Chloride BUN Glucose POC Glucose 219 H 158 H 181 H Calcium AST ALT Alkaline Phosphatase Total Creatine Kinase Troponin T C-Reactive Protein Total Protein Albumin LDL Cholesterol Direct HDL Cholesterol Urine WBC (Auto) Crossmatch 10/04/18 10/04/18 10/04/18 05:33 12:10 15:58 RBC Hgb Hct MCV MCH RDW Lymph % (Auto) Coffee % (Auto) Eos % (Auto) Coffee # Eos # Seg Neutrophils % Seg Neutrophils # POC ABG pH POC ABG pCO2 POC ABG pO2 Sodium Potassium Chloride BUN Glucose POC Glucose 209 H 270 H 266 H Calcium AST ALT Alkaline Phosphatase Total Creatine Kinase Troponin T C-Reactive Protein Total Protein Albumin LDL Cholesterol Direct HDL Cholesterol Urine WBC (Auto) Crossmatch 10/05/18 10/05/18 10/05/18 06:18 11:52 17:17 RBC Hgb Hct MCV MCH RDW Lymph % (Auto) Coffee % (Auto) Eos % (Auto) Coffee # Eos # Seg Neutrophils % Seg Neutrophils # POC ABG pH POC ABG pCO2 POC ABG pO2 Sodium Potassium Chloride BUN Glucose POC Glucose 107 H 218 H 183 H Calcium AST ALT Alkaline Phosphatase Total Creatine Kinase Troponin T C-Reactive Protein Total Protein Albumin LDL Cholesterol Direct HDL Cholesterol Urine WBC (Auto) Crossmatch 10/06/18 10/06/18 10/06/18 00:11 06:01 06:01 RBC 2.46 L Hgb 6.4 L Hct 19.8 L* MCV 80 L MCH 26 L RDW 21.7 H Lymph % (Auto) Coffee % (Auto) 10.4 H Eos % (Auto) Coffee # 1.1 H Eos # 0.5 H Seg Neutrophils % Seg Neutrophils # POC ABG pH POC ABG pCO2 POC ABG pO2 Sodium 147 H Potassium 3.2 L Chloride 107.7 H BUN 37 H Glucose 153 H POC Glucose 205 H Calcium 7.8 L AST 52 H ALT Alkaline Phosphatase 153 H Total Creatine Kinase Troponin T C-Reactive Protein Total Protein 5.9 L Albumin 1.8 L LDL Cholesterol Direct HDL Cholesterol Urine WBC (Auto) Crossmatch 10/06/18 10/06/18 10/06/18 06:10 08:28 09:48 RBC Hgb Hct MCV MCH RDW Lymph % (Auto) Coffee % (Auto) Eos % (Auto) Coffee # Eos # Seg Neutrophils % Seg Neutrophils # POC ABG pH POC ABG pCO2 POC ABG pO2 Sodium Potassium Chloride BUN Glucose POC Glucose 171 H 185 H Calcium AST ALT Alkaline Phosphatase Total Creatine Kinase Troponin T C-Reactive Protein Total Protein Albumin LDL Cholesterol Direct HDL Cholesterol Urine WBC (Auto) Crossmatch See Detail 10/06/18 10/06/18 10/07/18 12:31 17:50 00:00 RBC Hgb Hct MCV MCH RDW Lymph % (Auto) Coffee % (Auto) Eos % (Auto) Coffee # Eos # Seg Neutrophils % Seg Neutrophils # POC ABG pH POC ABG pCO2 POC ABG pO2 Sodium Potassium Chloride BUN Glucose POC Glucose 131 H 244 H 261 H Calcium AST ALT Alkaline Phosphatase Total Creatine Kinase Troponin T C-Reactive Protein Total Protein Albumin LDL Cholesterol Direct HDL Cholesterol Urine WBC (Auto) Crossmatch 10/07/18 10/07/18 10/07/18 05:21 05:21 09:31 RBC 2.99 L Hgb 8.1 L Hct 24.8 L MCV 83 L MCH 27 L RDW 21.9 H Lymph % (Auto) Coffee % (Auto) 10.5 H Eos % (Auto) 4.7 H Coffee # 1.0 H Eos # Seg Neutrophils % Seg Neutrophils # POC ABG pH POC ABG pCO2 POC ABG pO2 Sodium 146 H Potassium 3.0 L Chloride 107.6 H BUN 39 H Glucose 191 H POC Glucose 200 H Calcium 8.3 L AST 45 H ALT Alkaline Phosphatase 149 H Total Creatine Kinase Troponin T C-Reactive Protein Total Protein Albumin 1.7 L LDL Cholesterol Direct HDL Cholesterol Urine WBC (Auto) Crossmatch 10/07/18 10/07/18 10/08/18 11:45 17:45 00:55 RBC Hgb Hct MCV MCH RDW Lymph % (Auto) Coffee % (Auto) Eos % (Auto) Coffee # Eos # Seg Neutrophils % Seg Neutrophils # POC ABG pH POC ABG pCO2 POC ABG pO2 Sodium Potassium Chloride BUN Glucose POC Glucose 236 H 269 H 226 H Calcium AST ALT Alkaline Phosphatase Total Creatine Kinase Troponin T C-Reactive Protein Total Protein Albumin LDL Cholesterol Direct HDL Cholesterol Urine WBC (Auto) Crossmatch 10/08/18 10/08/18 10/08/18 04:00 04:00 05:37 RBC 2.75 L Hgb 7.6 L Hct 22.5 L MCV 82 L MCH RDW 22.2 H Lymph % (Auto) Coffee % (Auto) 12.7 H Eos % (Auto) 9.6 H Coffee # 1.0 H Eos # 0.8 H Seg Neutrophils % Seg Neutrophils # POC ABG pH POC ABG pCO2 POC ABG pO2 Sodium 146 H Potassium Chloride 110.0 H BUN 42 H Glucose 209 H POC Glucose 243 H Calcium 7.5 L AST ALT Alkaline Phosphatase 138 H Total Creatine Kinase Troponin T C-Reactive Protein Total Protein 5.8 L Albumin 1.8 L LDL Cholesterol Direct HDL Cholesterol Urine WBC (Auto) Crossmatch 10/08/18 11:42 RBC Hgb Hct MCV MCH RDW Lymph % (Auto) Coffee % (Auto) Eos % (Auto) Coffee # Eos # Seg Neutrophils % Seg Neutrophils # POC ABG pH POC ABG pCO2 POC ABG pO2 Sodium Potassium Chloride BUN Glucose POC Glucose 191 H Calcium AST ALT Alkaline Phosphatase Total Creatine Kinase Troponin T C-Reactive Protein Total Protein Albumin LDL Cholesterol Direct HDL Cholesterol Urine WBC (Auto) Crossmatch Allied health notes reviewed: nursing
[2018-10-08] MEDS: DUONEB *Not for PRN Use IH SCH ×2 (14:42→19:52)
[2018-10-08] MEDS: LANTUS SUB-Q SCH (21:58)
[2018-10-09] MEDS: HumuLIN R SUB-Q SCH ×4 (00:29→18:49)
[2018-10-09] MEDS: DUONEB *Not for PRN Use IH SCH ×4 (02:00→21:43)
[2018-10-09] MEDS: CARAFATE FEEDTUBE SCH ×3 (04:15→20:42)
[2018-10-09] MEDS: ROBINUL FEEDTUBE SCH ×3 (05:45→22:49)
[2018-10-09] MEDS: FLAGYL 500 MG/100 ML 500 MG/100 ML BAG IV SCH (05:45)
[2018-10-09] MEDS: LASIX IV SCH (05:45)
--- NOTE | 2018-10-09 08:16 | Discharge Summary ---
Providers - Providers Date of Admission: 09/28/18 03:06 Attending physician: KARLA BALLARD MD 09/28/18 03:33 Consult to Dietitian/Nutrition [CONS] Routine Physician Instructions: Reason For Exam: TUBE FEEDING WITH DIABETES MELLITUS Reason for Consult: Write/Manage Tube Feeding 09/28/18 10:00 Consult to Wound/ET Nurse [CONS] Routine Reason For Exam: wound eval 10/03/18 10:11 Consult to Physician [CONS] Routine Comment: Consulting Provider: PRIYANK JACKSON Physician Instructions: Reason For Exam: Aspiration pneumonia/chr,resp failure /s/p trach 10/06/18 13:53 Consult to Physician [CONS] Routine Comment: Consulting Provider: RIKKI AVALOS Physician Instructions: Reason For Exam: aspiration pneumonia/HCAP/fever Primary care physician: BONITA BACK Hospitalization Reason for admission: Sepsis Condition: Stable Hospital course: Mr. casillas is a 77-year-old male with recent prolonged hospitalization due to cardiac arrest. Previous history of CVA,. Recently discharged 10 days ago from our hospital with poor prognosis. Patient was comatose up on discharge with hypoxic encephalopathy,. According to neurology consult poor prognosis, poor left ventricular recovery. Preserved brainstem function but otherwise unresponsive. EEG suggestive of hypoxic encephalopathy. He returns from [facility] today For severe hyperglycemia. Treated with subcutaneous insulin at the facility. Noted to have 102.5 rectal temperature. He is currently nonverbal. He does not follow commands. Patient has aspiration pneumonia on antibiotics, persistent fevers, ID following, full CODE STATUS 09/27/2018 blood culture: No growth 09/28/2018 urine culture: Yeast: Non-albicans Lea 09/28/2018 MRSA nasal culture: Negative 10/04/2018 tracheal aspirate: Oropharyngeal contamination 10/06/2018 blood culture: no growth to date 10/06/2018 Urine: Yeast: non-albicans Lea --Spesis -Resolved. Febrile illness; No new fever Discussed extensively with the patients spouse and she understands that the patient is high risk for readmissions. Treated with and will complete abx per ID ID following --Aspiration pneumonia; patient is on cefepime and vancomycin will change to Augmentin till 10/13/18. Status post Levaquin, aspiration precautions, PEG feeds, Supportive care, follow-up chest x-ray tomorrow, pulmonary consult Elevate the head end of the bed --Chronic respiratory failure; h/o tracheostomy on T piece Continue oxygen nebulizers supportive care Chest x-ray, patient has copious secretions continue aggressive pulmonary toilet. family also advised of the improtance of this --Anemia; hemoglobin 7.6 post transfusion and stable, No evidence of bleeding --Generalized edema and fluid overload; Monitor input output --Type 2 diabetes mellitus uncontrolled /Hyperglycemia blood sugars are well controlled, continue Accu-Chek sliding scale coverage and tube feeding ,long acting insulin --Toxic metabolic encephalopathy; present on admission Multifactorial, neuro checks and supportive care --History of cardiac arrest in the past; anoxic encephalopathy Supportive care --UTI treated with empiric antibiotics, and cultures positive for Yeast. Start Diflucan for total 10 days to complete 10/16/18 --Elevated troponins; probably nonspecific. No clear evidence of increased oxygen demand Disposition: [id number]/[place] Time spent for discharge: 35 MINS Core Measure Documentation - Palliative Care Palliative Care/ Comfort Measures: Not Applicable - Core Measures Any of the following diagnoses?: none Exam - Physical Exam Narrative exam: General: chroniclly ill appearing, unresponsive, Eyes: Present: PERRL, EOM intact, - Neck Neck: Present: supple, normal ROM - Respiratory Respiratory effort: normal Respiratory: bilateral: diminished, rhonchi, negative: rales, wheezing. Trach inplace. - Cardiovascular Rhythm: regular Heart Sounds: Present: S1 & S2 - Extremities Extremities: no ischemia Extremity abnormal: edema - Abdominal General gastrointestinal: soft, non-tender, non-distended, normal bowel sounds - Integumentary Integumentary: Present: clear, warm, multiple decub/sacarl pressure ulcers, contracted - Psychiatric Psychiatric: other (noncommunicative) - Neurologic Neurologic: other (unresponsive) - Constitutional Vitals: Temp Pulse Resp BP Pulse Ox 99.0 F 75 22 130/57 100 10/09/18 07:41 10/09/18 07:41 10/09/18 07:41 10/09/18 07:41 10/09/18 07:41 Plan Activity: advance as tolerated Diet: per dietitian instruction Wound: per wound nurse instructions Special Instructions: record daily BP diary Follow up with: BONITA BACK MD [Primary Care Provider] - 3-5 Days MARIA G GIRON MD [Staff Physician] - 7 Days Prescriptions: Amoxicillin/Potassium Clav [Augmentin Es-600 Suspension] 600 mg PO Q12H 5 Days ml Fluconazole [Diflucan TAB] 100 mg PO QDAY #14 tablet Ipratropium/Albuterol Sulfate [DUONEB *Not for PRN Use*] 1 ampul IH Q6HRT #90 ampul.neb Furosemide [Lasix TAB] 40 mg PO QDAY #30 tablet Famotidine [Pepcid] 20 mg PO QDAY #30 tablet
--- NOTE | 2018-10-09 09:41 | Progress Note ---
Assessment and Plan Cultures: 09/27/2018 blood culture: No growth 09/28/2018 urine culture: Yeast: Non-albicans Lea 09/28/2018 MRSA nasal culture: Negative 10/04/2018 tracheal aspirate: Oropharyngeal contamination 10/06/2018 blood culture: no growth to date 10/06/2018 Urine: Yeast: non-albicans Lea A/P: 77-year-old male with recent CVA, prolonged hospitalization following cardiac arrest and [facility], now with: 1) Sepsis: Resolved. no fevers in 24 hours. Source unclear, likely aspiration pneumonia, healthcare associated pneumonia. Possible catheter associated UTI versus multiple skin wounds. Duplex scan reveals no sonographic evidence for DVT in either lower extremity. 2) HCAP v/s aspiration pneumonia: Chest x-ray shows evidence of right upper lobe infiltrate. Patient with chronic respiratory failure status post tracheostomy. Completed 7 days of cefepime and vancomycin. 3) Chronic anoxic encephalopathy 4) Multiple decubitus ulcers: Continue wound care 5) Candiduria: Armas catheter exchanged 10/06/18 Recs: Discontinued cefepime and Flagyl Afebrile > 24 hours, Will switch to Augmentin 875mg PO Liquid BID for 5 days ending 10-13-18 Continue wound care Overall poor prognosis Dr. Corcoran will be traction power engineer this weekend, , please call for questions. [facility] M: [phone] O:[phone] Subjective Date of service: 10/09/18 Principal diagnosis: Ac on ch hypoxemic resp failure; HAP; Urinary tract infection; DM II Interval history: Patient seen and examined. Unresponsive and nonverbal. + trach. No fevers. Objective - Exam Narrative Exam: Constitutional: Unresponsive Head, Ears, Nose: Normocephalic, atraumatic. External ears, nose normal Eyes: Conjunctivae/corneas clear. No icterus. No ptosis. Neck: Trach + Oral: Unable to examine Cardiovascular: S1, S2 normal. Respiratory: Coarse sounds bilaterally GI: Soft, bowel sounds normal. No peritoneal signs. G-tube present, Armas catheter present Musculoskeletal: No pedal edema, no cyanosis. Skin: Multiple skin wounds involving sacrum, bilateral heel regions. Hem/Lymphatic: No palpable cervical or supraclavicular nodes. No lymphangitis Psych: Unresponsive Neurological: Unresponsive, nonverbal - Constitutional Vitals: Vital Signs Temp Pulse Resp BP Pulse Ox 99.0 F 75 22 130/57 100 10/09/18 07:41 10/09/18 07:41 10/09/18 07:41 10/09/18 07:41 10/09/18 07:41 Temperature -Last 24 Hours Temperature 99.0 F Temperature 98.6 F Temperature 99.4 F Temperature 99.4 F - Labs CBC & Chem 7: 10/08/18 04:00 10/08/18 04:00 Labs: Abnormal lab results 10/08/18 10/08/18 10/09/18 Range/Units 11:42 17:46 00:28 POC Glucose 191 H 199 H 191 H (70-105) 10/09/18 Range/Units 05:59 POC Glucose 136 H (70-105)
[2018-10-09] MEDS: SYMMETREL FEEDTUBE SCH (10:22)
[2018-10-09] MEDS: FERROUS SULFATE FEEDTUBE SCH (10:22)
[2018-10-09] MEDS: BABY ASPIRIN FEEDTUBE SCH (10:23)
[2018-10-09] MEDS: ZESTRIL FEEDTUBE SCH (10:23)
[2018-10-09] MEDS: HEPARIN SUB-Q SCH ×2 (10:24→22:54)
[2018-10-09] MEDS: FLOMAX PO SCH (10:24)
[2018-10-09] MEDS: PEPCID PO SCH (10:24)
[2018-10-09] MEDS: VIMPAT PO SCH ×2 (10:24→22:50)
[2018-10-09] MEDS: VITAMIN C FEEDTUBE SCH (10:24)
[2018-10-09] MEDS: NORVASC FEEDTUBE SCH (10:25)
--- NOTE | 2018-10-09 13:51 | Progress Note ---
Assessment and Plan Acute on chronic hypoxemic respiratory failure. Likely aspiration pneumonia (HAP) Suspected bilateral pulmonary edema. Diabetes type 2. Chronic toxic metabolic encephalopathy. History of cardiac arrest. Urinary tract infection. Anemia. H/O CVA Elevated serum troponins, possible non-ST elevation myocardial infarction. Oropharyngeal dysphagia. Adult failure to thrive. - reduced lasix to 20 mg po daily - CXR reviewed - complete AB's per ID rec's - prn ABG's & CXR's at this point - continue Keppra for seizures - continue Amantadine - continue bronchodilators with routine trach care and pulmonary hygiene per RT - continue to wean supplemental oxygen to keep O2 sats 88-90% - continue enteral nutrition as tolerated - continue aspiration precautions - continue accuchecks with glycemic control per SSI for target glucose of 140- 180 mg/dL (Lantus re-introduced) - Maintenance of sleep -wake cycle modalities - Mobility as tolerated by hemodynamics - continue GI & VTE prophylaxis - Influenza and pneumonia vaccination per protocol - discharge planning ongoing concurrently CODE STATUS: FULL CODE Subjective Date of service: 10/09/18 Principal diagnosis: Ac on ch hypoxemic resp failure; HAP; Urinary tract inf ection; DM II Interval history: Patient is seen today for: Acute on chronic hypoxemic respiratory failure; Likely aspiration pneumonia (HAP); Suspected bilateral pulmonary edema.; Diabetes type 2; Chronic encephalopathy (Anoxic); Urinary tract infection. Seen and examined at bedside; 24hour events reviewed; nursing and respiratory care staff consulted; no adverse overnight events reported to me; resting peacefully in bed; improved; peripheral and pulmonary edema improving; AMS is persistent and remains on supplemental oxygen Objective Vital Signs - 12hr 10/09/18 10/09/18 10/09/18 02:00 02:05 02:09 Temperature 98.6 F Pulse Rate 77 Pulse Rate [ 80 Anterior Bilateral Throughout] Respiratory 20 Rate Respiratory 20 Rate [Anterior Bilateral Throughout] Blood Pressure 132/58 O2 Sat by Pulse 98 Oximetry O2 Sat by Pulse 100 Oximetry [ Assessment] 10/09/18 10/09/18 10/09/18 02:10 07:41 10:23 Temperature 99.0 F Pulse Rate 75 75 Pulse Rate [ 84 Anterior Bilateral Throughout] Respiratory 22 Rate Respiratory 20 Rate [Anterior Bilateral Throughout] Blood Pressure 130/57 130/57 O2 Sat by Pulse 100 Oximetry O2 Sat by Pulse Oximetry [ Assessment] Constitutional: appears uncomfortable, other (elderly looking AAM, normocephalic with mildly increased resp effort at rest) Eyes: non-icteric ENT: oropharynx moist Neck: supple, no lymphadenopathy, no JVD, other (midline tracheostomy tube) Effort: mildly labored Ascultation: Bilateral: diminished breath sounds, rhonchi Percussion: Bilateral: not dull Cardiovascular: regular rate and rhythm Gastrointestinal: normoactive bowel sounds, soft, non-tender, non-distended Integumentary: rash Extremities: no cyanosis, pulses normal, no ischemia or petechiae, edema (trace now) Neurologic: unable to assess Psychiatric: other (encephalopathic) CBC and BMP: 10/08/18 04:00 10/08/18 04:00 ABG, PT/INR, D-dimer: ABG POC ABG pH 7.525 (7.35-7.45) H 10/03/18 04:37 POC ABG pCO2 < 30 (35-45) L 10/03/18 04:37 POC ABG pO2 63 (80-105) L 10/03/18 04:37 POC ABG HCO3 23.4 (22-26 mml/L) 10/03/18 04:37 POC ABG Total CO2 24 (23-27mmol/L) 10/03/18 04:37 POC ABG O2 Sat 94 10/03/18 04:37 Abnormal lab findings: Abnormal Labs 09/27/18 09/27/18 09/27/18 22:54 23:00 23:00 RBC 2.71 L Hgb 7.4 L Hct 22.0 L MCV 81 L MCH 27 L RDW 21.4 H Lymph % (Auto) [place] % (Auto) 13.8 H Eos % (Auto) [place] # 1.3 H Eos # Seg Neutrophils % Seg Neutrophils # POC ABG pH POC ABG pCO2 POC ABG pO2 Sodium Potassium Chloride BUN 40 H Glucose 431 H POC Glucose 456 H Calcium AST 78 H ALT 107 H Alkaline Phosphatase 178 H Total Creatine Kinase Troponin T 0.407 H* C-Reactive Protein Total Protein Albumin 1.9 L LDL Cholesterol Direct 25 L HDL Cholesterol 19 L Urine WBC (Auto) Crossmatch 09/27/18 09/28/18 09/28/18 23:34 01:05 02:43 RBC Hgb Hct MCV MCH RDW Lymph % (Auto) [place] % (Auto) Eos % (Auto) [place] # Eos # Seg Neutrophils % Seg Neutrophils # POC ABG pH 7.525 H POC ABG pCO2 33.1 L POC ABG pO2 Sodium Potassium Chloride BUN Glucose POC Glucose 497 H Calcium AST ALT Alkaline Phosphatase Total Creatine Kinase Troponin T C-Reactive Protein Total Protein Albumin LDL Cholesterol Direct HDL Cholesterol Urine WBC (Auto) 63.0 H Crossmatch 09/28/18 09/28/18 09/28/18 04:11 07:13 11:47 RBC Hgb Hct MCV MCH RDW Lymph % (Auto) [place] % (Auto) Eos % (Auto) [place] # Eos # Seg Neutrophils % Seg Neutrophils # POC ABG pH POC ABG pCO2 POC ABG pO2 Sodium Potassium Chloride BUN Glucose POC Glucose 362 H 392 H 244 H Calcium AST ALT Alkaline Phosphatase Total Creatine Kinase Troponin T C-Reactive Protein Total Protein Albumin LDL Cholesterol Direct HDL Cholesterol Urine WBC (Auto) Crossmatch 09/28/18 09/28/18 09/29/18 12:11 16:32 00:18 RBC Hgb Hct MCV MCH RDW Lymph % (Auto) [place] % (Auto) Eos % (Auto) [place] # Eos # Seg Neutrophils % Seg Neutrophils # POC ABG pH POC ABG pCO2 POC ABG pO2 Sodium Potassium Chloride BUN Glucose POC Glucose 159 H 118 H Calcium AST ALT Alkaline Phosphatase Total Creatine Kinase 301 H Troponin T 0.294 H* D C-Reactive Protein Total Protein Albumin LDL Cholesterol Direct HDL Cholesterol Urine WBC (Auto) Crossmatch 09/29/18 09/29/18 09/29/18 04:28 11:23 18:58 RBC Hgb Hct MCV MCH RDW Lymph % (Auto) [place] % (Auto) Eos % (Auto) [place] # Eos # Seg Neutrophils % Seg Neutrophils # POC ABG pH POC ABG pCO2 POC ABG pO2 Sodium Potassium Chloride BUN Glucose POC Glucose 67 L 126 H 167 H Calcium AST ALT Alkaline Phosphatase Total Creatine Kinase Troponin T C-Reactive Protein Total Protein Albumin LDL Cholesterol Direct HDL Cholesterol Urine WBC (Auto) Crossmatch 09/29/18 09/29/18 09/30/18 20:51 23:41 04:56 RBC Hgb Hct MCV MCH RDW Lymph % (Auto) [place] % (Auto) Eos % (Auto) [place] # Eos # Seg Neutrophils % Seg Neutrophils # POC ABG pH POC ABG pCO2 POC ABG pO2 Sodium Potassium Chloride BUN Glucose POC Glucose 182 H 170 H 133 H Calcium AST ALT Alkaline Phosphatase Total Creatine Kinase Troponin T C-Reactive Protein Total Protein Albumin LDL Cholesterol Direct HDL Cholesterol Urine WBC (Auto) Crossmatch 09/30/18 09/30/18 09/30/18 12:37 16:25 20:35 RBC Hgb Hct MCV MCH RDW Lymph % (Auto) [place] % (Auto) Eos % (Auto) [place] # Eos # Seg Neutrophils % Seg Neutrophils # POC ABG pH POC ABG pCO2 POC ABG pO2 Sodium Potassium Chloride BUN Glucose POC Glucose 182 H 185 H 227 H Calcium AST ALT Alkaline Phosphatase Total Creatine Kinase Troponin T C-Reactive Protein Total Protein Albumin LDL Cholesterol Direct HDL Cholesterol Urine WBC (Auto) Crossmatch 09/30/18 10/01/18 10/01/18 23:56 04:05 13:22 RBC Hgb Hct MCV MCH RDW Lymph % (Auto) [place] % (Auto) Eos % (Auto) [place] # Eos # Seg Neutrophils % Seg Neutrophils # POC ABG pH POC ABG pCO2 POC ABG pO2 Sodium Potassium Chloride BUN Glucose POC Glucose 226 H 182 H 122 H Calcium AST ALT Alkaline Phosphatase Total Creatine Kinase Troponin T C-Reactive Protein Total Protein Albumin LDL Cholesterol Direct HDL Cholesterol Urine WBC (Auto) Crossmatch 10/01/18 10/01/18 10/01/18 17:58 18:49 23:42 RBC Hgb Hct MCV MCH RDW Lymph % (Auto) [place] % (Auto) Eos % (Auto) [place] # Eos # Seg Neutrophils % Seg Neutrophils # POC ABG pH POC ABG pCO2 POC ABG pO2 Sodium Potassium Chloride BUN Glucose POC Glucose 62 L 140 H 172 H Calcium AST ALT Alkaline Phosphatase Total Creatine Kinase Troponin T C-Reactive Protein Total Protein Albumin LDL Cholesterol Direct HDL Cholesterol Urine WBC (Auto) Crossmatch 10/02/18 10/02/18 10/02/18 06:25 08:45 08:45 RBC 2.65 L Hgb 7.0 L Hct 21.2 L MCV 80 L MCH 26 L RDW 21.0 H Lymph % (Auto) [place] % (Auto) 9.7 H Eos % (Auto) [place] # 1.0 H Eos # Seg Neutrophils % 71.9 H Seg Neutrophils # POC ABG pH POC ABG pCO2 POC ABG pO2 Sodium Potassium Chloride BUN 29 H Glucose 229 H POC Glucose 226 H Calcium 7.9 L AST ALT Alkaline Phosphatase Total Creatine Kinase Troponin T C-Reactive Protein Total Protein Albumin LDL Cholesterol Direct HDL Cholesterol Urine WBC (Auto) Crossmatch 10/02/18 10/02/18 10/02/18 12:06 17:42 21:02 RBC Hgb Hct MCV MCH RDW Lymph % (Auto) [place] % (Auto) Eos % (Auto) [place] # Eos # Seg Neutrophils % Seg Neutrophils # POC ABG pH POC ABG pCO2 POC ABG pO2 Sodium Potassium Chloride BUN Glucose POC Glucose 217 H 216 H 116 H Calcium AST ALT Alkaline Phosphatase Total Creatine Kinase Troponin T C-Reactive Protein Total Protein Albumin LDL Cholesterol Direct HDL Cholesterol Urine WBC (Auto) Crossmatch 10/03/18 10/03/18 10/03/18 00:29 00:49 04:37 RBC 2.87 L Hgb 7.6 L Hct 23.0 L MCV 80 L MCH 26 L RDW 20.5 H Lymph % (Auto) 11.6 L [place] % (Auto) 7.5 H Eos % (Auto) [place] # Eos # Seg Neutrophils % 78.0 H Seg Neutrophils # 8.4 H POC ABG pH 7.525 H POC ABG pCO2 < 30 L POC ABG pO2 63 L Sodium Potassium Chloride BUN Glucose POC Glucose 117 H Calcium AST ALT Alkaline Phosphatase Total Creatine Kinase Troponin T C-Reactive Protein Total Protein Albumin LDL Cholesterol Direct HDL Cholesterol Urine WBC (Auto) Crossmatch 10/03/18 10/03/18 10/03/18 05:49 12:20 15:26 RBC Hgb Hct MCV MCH RDW Lymph % (Auto) [place] % (Auto) Eos % (Auto) [place] # Eos # Seg Neutrophils % Seg Neutrophils # POC ABG pH POC ABG pCO2 POC ABG pO2 Sodium Potassium Chloride BUN Glucose POC Glucose 218 H 238 H Calcium AST ALT Alkaline Phosphatase Total Creatine Kinase Troponin T C-Reactive Protein 14.70 H Total Protein Albumin LDL Cholesterol Direct HDL Cholesterol Urine WBC (Auto) Crossmatch 10/03/18 10/03/18 10/04/18 16:35 21:13 00:26 RBC Hgb Hct MCV MCH RDW Lymph % (Auto) [place] % (Auto) Eos % (Auto) [place] # Eos # Seg Neutrophils % Seg Neutrophils # POC ABG pH POC ABG pCO2 POC ABG pO2 Sodium Potassium Chloride BUN Glucose POC Glucose 219 H 158 H 181 H Calcium AST ALT Alkaline Phosphatase Total Creatine Kinase Troponin T C-Reactive Protein Total Protein Albumin LDL Cholesterol Direct HDL Cholesterol Urine WBC (Auto) Crossmatch 10/04/18 10/04/18 10/04/18 05:33 12:10 15:58 RBC Hgb Hct MCV MCH RDW Lymph % (Auto) [place] % (Auto) Eos % (Auto) [place] # Eos # Seg Neutrophils % Seg Neutrophils # POC ABG pH POC ABG pCO2 POC ABG pO2 Sodium Potassium Chloride BUN Glucose POC Glucose 209 H 270 H 266 H Calcium AST ALT Alkaline Phosphatase Total Creatine Kinase Troponin T C-Reactive Protein Total Protein Albumin LDL Cholesterol Direct HDL Cholesterol Urine WBC (Auto) Crossmatch 10/05/18 10/05/18 10/05/18 06:18 11:52 17:17 RBC Hgb Hct MCV MCH RDW Lymph % (Auto) [place] % (Auto) Eos % (Auto) [place] # Eos # Seg Neutrophils % Seg Neutrophils # POC ABG pH POC ABG pCO2 POC ABG pO2 Sodium Potassium Chloride BUN Glucose POC Glucose 107 H 218 H 183 H Calcium AST ALT Alkaline Phosphatase Total Creatine Kinase Troponin T C-Reactive Protein Total Protein Albumin LDL Cholesterol Direct HDL Cholesterol Urine WBC (Auto) Crossmatch 10/06/18 10/06/18 10/06/18 00:11 06:01 06:01 RBC 2.46 L Hgb 6.4 L Hct 19.8 L* MCV 80 L MCH 26 L RDW 21.7 H Lymph % (Auto) [place] % (Auto) 10.4 H Eos % (Auto) [place] # 1.1 H Eos # 0.5 H Seg Neutrophils % Seg Neutrophils # POC ABG pH POC ABG pCO2 POC ABG pO2 Sodium 147 H Potassium 3.2 L Chloride 107.7 H BUN 37 H Glucose 153 H POC Glucose 205 H Calcium 7.8 L AST 52 H ALT Alkaline Phosphatase 153 H Total Creatine Kinase Troponin T C-Reactive Protein Total Protein 5.9 L Albumin 1.8 L LDL Cholesterol Direct HDL Cholesterol Urine WBC (Auto) Crossmatch 10/06/18 10/06/18 10/06/18 06:10 08:28 09:48 RBC Hgb Hct MCV MCH RDW Lymph % (Auto) [place] % (Auto) Eos % (Auto) [place] # Eos # Seg Neutrophils % Seg Neutrophils # POC ABG pH POC ABG pCO2 POC ABG pO2 Sodium Potassium Chloride BUN Glucose POC Glucose 171 H 185 H Calcium AST ALT Alkaline Phosphatase Total Creatine Kinase Troponin T C-Reactive Protein Total Protein Albumin LDL Cholesterol Direct HDL Cholesterol Urine WBC (Auto) Crossmatch See Detail 10/06/18 10/06/18 10/07/18 12:31 17:50 00:00 RBC Hgb Hct MCV MCH RDW Lymph % (Auto) [place] % (Auto) Eos % (Auto) [place] # Eos # Seg Neutrophils % Seg Neutrophils # POC ABG pH POC ABG pCO2 POC ABG pO2 Sodium Potassium Chloride BUN Glucose POC Glucose 131 H 244 H 261 H Calcium AST ALT Alkaline Phosphatase Total Creatine Kinase Troponin T C-Reactive Protein Total Protein Albumin LDL Cholesterol Direct HDL Cholesterol Urine WBC (Auto) Crossmatch 10/07/18 10/07/18 10/07/18 05:21 05:21 09:31 RBC 2.99 L Hgb 8.1 L Hct 24.8 L MCV 83 L MCH 27 L RDW 21.9 H Lymph % (Auto) [place] % (Auto) 10.5 H Eos % (Auto) 4.7 H [place] # 1.0 H Eos # Seg Neutrophils % Seg Neutrophils # POC ABG pH POC ABG pCO2 POC ABG pO2 Sodium 146 H Potassium 3.0 L Chloride 107.6 H BUN 39 H Glucose 191 H POC Glucose 200 H Calcium 8.3 L AST 45 H ALT Alkaline Phosphatase 149 H Total Creatine Kinase Troponin T C-Reactive Protein Total Protein Albumin 1.7 L LDL Cholesterol Direct HDL Cholesterol Urine WBC (Auto) Crossmatch 10/07/18 10/07/18 10/08/18 11:45 17:45 00:55 RBC Hgb Hct MCV MCH RDW Lymph % (Auto) [place] % (Auto) Eos % (Auto) [place] # Eos # Seg Neutrophils % Seg Neutrophils # POC ABG pH POC ABG pCO2 POC ABG pO2 Sodium Potassium Chloride BUN Glucose POC Glucose 236 H 269 H 226 H Calcium AST ALT Alkaline Phosphatase Total Creatine Kinase Troponin T C-Reactive Protein Total Protein Albumin LDL Cholesterol Direct HDL Cholesterol Urine WBC (Auto) Crossmatch 10/08/18 10/08/18 10/08/18 04:00 04:00 05:37 RBC 2.75 L Hgb 7.6 L Hct 22.5 L MCV 82 L MCH RDW 22.2 H Lymph % (Auto) [place] % (Auto) 12.7 H Eos % (Auto) 9.6 H [place] # 1.0 H Eos # 0.8 H Seg Neutrophils % Seg Neutrophils # POC ABG pH POC ABG pCO2 POC ABG pO2 Sodium 146 H Potassium Chloride 110.0 H BUN 42 H Glucose 209 H POC Glucose 243 H Calcium 7.5 L AST ALT Alkaline Phosphatase 138 H Total Creatine Kinase Troponin T C-Reactive Protein Total Protein 5.8 L Albumin 1.8 L LDL Cholesterol Direct HDL Cholesterol Urine WBC (Auto) Crossmatch 10/08/18 10/08/18 10/09/18 11:42 17:46 00:28 RBC Hgb Hct MCV MCH RDW Lymph % (Auto) [place] % (Auto) Eos % (Auto) [place] # Eos # Seg Neutrophils % Seg Neutrophils # POC ABG pH POC ABG pCO2 POC ABG pO2 Sodium Potassium Chloride BUN Glucose POC Glucose 191 H 199 H 191 H Calcium AST ALT Alkaline Phosphatase Total Creatine Kinase Troponin T C-Reactive Protein Total Protein Albumin LDL Cholesterol Direct HDL Cholesterol Urine WBC (Auto) Crossmatch 10/09/18 10/09/18 05:59 11:28 RBC Hgb Hct MCV MCH RDW Lymph % (Auto) [place] % (Auto) Eos % (Auto) [place] # Eos # Seg Neutrophils % Seg Neutrophils # POC ABG pH POC ABG pCO2 POC ABG pO2 Sodium Potassium Chloride BUN Glucose POC Glucose 136 H 137 H Calcium AST ALT Alkaline Phosphatase Total Creatine Kinase Troponin T C-Reactive Protein Total Protein Albumin LDL Cholesterol Direct HDL Cholesterol Urine WBC (Auto) Crossmatch Allied health notes reviewed: nursing
--- NOTE | 2018-10-09 13:53 | Progress Note ---
Assessment and Plan Assessment and plan: Mr. casillas is a 77-year-old male with recent prolonged hospitalization due to cardiac arrest. Previous history of CVA,. Recently discharged 10 days ago from our hospital with poor prognosis. Patient was comatose up on discharge with hypoxic encephalopathy,. According to neurology consult poor prognosis, poor left ventricular recovery. Preserved brainstem function but otherwise unresponsive. EEG suggestive of hypoxic encephalopathy. He returns from [facility] today For severe hyperglycemia. Treated with subcutaneous insulin at the facility. Noted to have 102.5 rectal temperature. He is currently nonverbal. He does not follow commands. Patient has aspiration pneumonia on antibiotics, persistent fevers, ID following, full CODE STATUS --Febrile illness; persistent fever patient already has aspiration pneumonia on IV antibiotics Monitor for additional 24hrs and if no further fever will plan discharge per ID Discussed extensively with the patients spouse and she understands that the patient is high risk for readmissions. Continue, Antibiotics and supportive care ID following --Aspiration pneumonia; patient is on cefepime and vancomycin will change to augumentin for 5 days on discaharge. Status post Levaquin, aspiration precautions, PEG feeds, Supportive care, follow-up chest x-ray tomorrow, pulmonary consult Elevate the head end of the bed --Chronic respiratory failure; h/o tracheostomy on T piece Continue oxygen nebulizers supportive care Chest x-ray, patient has copious secretions --Anemia; hemoglobin 6.4, No evidence of bleeding s/p 1 unit PRBC transfusion, closely monitor H&H Stool for occult blood --Generalized edema and fluid overload; IV diuretics Monitor input output --Type 2 diabetes mellitus uncontrolled /Hyperglycemia blood sugars are well controlled, continue Accu-Chek sliding scale coverage and tube feeding ,long acting insulin --Toxic metabolic encephalopathy; present on admission Multifactorial, neuro checks and supportive care --History of cardiac arrest in the past; anoxic encephalopathy Supportive care --Sepsis/possible UTI empiric antibiotics, and cultures positive for Yeast. Start Diflucan for total 10 days --Anemia; closely monitor H&H and transfuse as needed --Elevated troponins; probably nonspecific Closely monitor, cardiology consult if needed --DVT prophylaxis; Lovenox Full CODE STATUS Discharge planning; DC and transfer back to SNF when pre-cert completed by insurance company Monitor closely and adjust the management as needed Plan of care is reviewed with the patient's and his nurse History Interval history: Patient seen and examined, remains in encephalopathic state, but stable, family at bedside. No new complaints. anticipating discharge today Hospitalist Physical - Physical exam Narrative exam: General: chroniclly ill appearing, unresponsive, Eyes: Present: PERRL, EOM intact, - Neck Neck: Present: supple, normal ROM - Respiratory Respiratory effort: normal Respiratory: bilateral: diminished, rhonchi, negative: rales, wheezing. Trach inplace. - Cardiovascular Rhythm: regular Heart Sounds: Present: S1 & S2 - Extremities Extremities: no ischemia Extremity abnormal: edema - Abdominal General gastrointestinal: soft, non-tender, non-distended, normal bowel sounds - Integumentary Integumentary: Present: clear, warm, multiple decub/sacarl pressure ulcers, contracted - Psychiatric Psychiatric: other (noncommunicative) - Neurologic Neurologic: other (unresponsive) - Constitutional Vitals: Temp Pulse Resp BP Pulse Ox 99.0 F 75 22 130/57 100 10/09/18 07:41 10/09/18 10:23 10/09/18 07:41 10/09/18 10:23 10/09/18 07:41 General appearance: Present: no acute distress, well-nourished, obese, other (tracheostomy on T piece) Results - Labs CBC & Chem 7: 10/08/18 04:00 10/08/18 04:00 Labs: Laboratory Last Values WBC 8.2 K/mm3 (4.5-11.0) 10/08/18 04:00 RBC 2.75 M/mm3 (3.65-5.03) L 10/08/18 04:00 Hgb 7.6 gm/dl (11.8-15.2) L 10/08/18 04:00 Hct 22.5 % (35.5-45.6) L 10/08/18 04:00 MCV 82 fl (84-94) L 10/08/18 04:00 MCH 28 pg (28-32) 10/08/18 04:00 MCHC 34 % (32-34) 10/08/18 04:00 RDW 22.2 % (13.2-15.2) H 10/08/18 04:00 Plt Count 326 K/mm3 (140-440) 10/08/18 04:00 Lymph % (Auto) 17.0 % (13.4-35.0) 10/08/18 04:00 [place] % (Auto) 12.7 % (0.0-7.3) H 10/08/18 04:00 Eos % (Auto) 9.6 % (0.0-4.3) H 10/08/18 04:00 Baso % (Auto) 1.3 % (0.0-1.8) 10/08/18 04:00 Lymph # 1.4 K/mm3 (1.2-5.4) 10/08/18 04:00 [place] # 1.0 K/mm3 (0.0-0.8) H 10/08/18 04:00 Eos # 0.8 K/mm3 (0.0-0.4) H 10/08/18 04:00 Baso # 0.1 K/mm3 (0.0-0.1) 10/08/18 04:00 Seg Neutrophils % 59.4 % (40.0-70.0) 10/08/18 04:00 Seg Neutrophils # 4.9 K/mm3 (1.8-7.7) 10/08/18 04:00 POC ABG pH 7.525 (7.35-7.45) H 10/03/18 04:37 POC ABG pCO2 < 30 (35-45) L 10/03/18 04:37 POC ABG pO2 63 (80-105) L 10/03/18 04:37 POC ABG HCO3 23.4 (22-26 mml/L) 10/03/18 04:37 POC ABG Total CO2 24 (23-27mmol/L) 10/03/18 04:37 POC ABG O2 Sat 94 10/03/18 04:37 POC ABG Base Excess 1 ((-2) - (+3)mmol/L) 10/03/18 04:37 40 % 10/03/18 04:37 Sodium 146 mmol/L (137-145) H 10/08/18 04:00 Potassium 3.8 mmol/L (3.6-5.0) D 10/08/18 04:00 Chloride 110.0 mmol/L (98-107) H 10/08/18 04:00 Carbon Dioxide 27 mmol/L (22-30) 10/08/18 04:00 13 mmol/L 10/08/18 04:00 BUN 42 mg/dL (9-20) H 10/08/18 04:00 1.5 mg/dL (0.8-1.5) 10/08/18 04:00 Estimated GFR 55 ml/min 10/08/18 04:00 28 % 10/08/18 04:00 Glucose 209 mg/dL (75-100) H 10/08/18 04:00 POC Glucose 137 (70-105) H 10/09/18 11:28 Lactic Acid 1.20 mmol/L (0.7-2.0) 10/03/18 15:26 Calcium 7.5 mg/dL (8.4-10.2) L 10/08/18 04:00 Phosphorus 3.40 mg/dL (2.5-4.5) 10/02/18 08:45 Magnesium 2.10 mg/dL (1.7-2.3) 10/08/18 04:00 0.20 mg/dL (0.1-1.2) 10/08/18 04:00 AST 38 units/L (5-40) 10/08/18 04:00 ALT 45 units/L (7-56) 10/08/18 04:00 138 units/L (35-129) H 10/08/18 04:00 301 units/L (55-170) H 09/28/18 12:11 CK-MB (CK-2) 3.1 ng/mL (0.0-4.0) 09/28/18 12:11 CK-MB (CK-2) Rel Index 1.0 (0-4) 09/28/18 12:11 0.294 ng/mL (0.00-0.029) H* D 09/28/18 12:11 14.70 mg/dL (0.00-1.30) H 10/03/18 15:26 5.8 g/dL (6.3-8.2) L 10/08/18 04:00 1.8 g/dL (3.9-5) L 10/08/18 04:00 0.5 % 10/08/18 04:00 Triglycerides 61 mg/dL (2-149) 09/27/18 23:00 Cholesterol 56 mg/dL (50-199) 09/27/18 23:00 25 mg/dL (50-130) L 09/27/18 23:00 19 mg/dL (40-59) L 09/27/18 23:00 2.94 % 09/27/18 23:00 Yellow (Yellow) 09/28/18 01:05 Cloudy (Clear) 09/28/18 01:05 7.0 (5.0-7.0) 09/28/18 01:05 Ur Specific [place] 1.017 (1.003-1.030) 09/28/18 01:05 100 mg/dl mg/dL (Negative) 09/28/18 01:05 150 mg/dL (Negative) 09/28/18 01:05 Neg mg/dL (Negative) 09/28/18 01:05 Sm (Negative) 09/28/18 01:05 Neg (Negative) 09/28/18 01:05 Neg (Negative) 09/28/18 01:05 < 2.0 mg/dL (<2.0) 09/28/18 01:05 Ur Leukocyte Esterase Lg (Negative) 09/28/18 01:05 63.0 /HPF (0.0-6.0) H 09/28/18 01:05 182.0 /HPF (0.0-6.0) 09/28/18 01:05 U Epithel Cells (Auto) < 1.0 /HPF (0-13.0) 09/28/18 01:05 2+ /HPF (Negative) 09/28/18 01:05 Few /HPF 09/28/18 01:05 3+ /HPF 09/28/18 01:05 Random Vancomycin 23.4 ug/mL (0-40.0) 10/03/18 19:57 Blood Type O POSITIVE 10/06/18 09:48 Antibody Screen Negative 10/06/18 09:48 Crossmatch See Detail 10/06/18 09:48 Active Medications - Current Medications Current Medications: Generic Name Dose Route Start Last Admin Trade Name Freq PRN Reason Stop Dose Admin Acetaminophen 650 mg 09/28/18 03:16 10/07/18 18:51 Tylenol MA 650 mg Q4H PRN Administration Fever >101 Albuterol 2.5 mg 10/08/18 11:00 Proventil IH Q3HRT PRN Shortness Of Breath Albuterol/Ipratropium 1 ampul 10/08/18 14:00 10/09/18 09:56 Duoneb *Not For Prn Use* IH 1 ampul Q6HRT LENCHO Administration Amantadine HCl 100 mg 09/28/18 10:00 10/09/18 10:22 Symmetrel FEEDTUBE 100 mg DAILY LENCHO Administration Amlodipine Besylate 5 mg 09/28/18 10:00 10/09/18 10:25 Norvasc FEEDTUBE 5 mg DAILY LENCHO Administration Amoxicillin/Clavulanate Potassium 875 mg 10/09/18 10:00 Augmentin Oral Liqd PO Q12HR LENCHO Lipase/Protease/Amylase 1 each 09/28/18 15:34 Pancregarrett Alas 10,500 Unit FEEDTUBE PRN PRN For Clogged Feeding Tube Ascorbic Acid 500 mg 09/28/18 10:00 10/09/18 10:24 Vitamin C FEEDTUBE 500 mg QDAY LENCHO Administration Aspirin 81 mg 09/29/18 10:00 10/09/18 10:23 Baby Aspirin FEEDTUBE 81 mg QDAY LENCHO Administration Atorvastatin Calcium 40 mg 09/28/18 22:00 10/08/18 21:57 Lipitor FEEDTUBE 40 mg QHS LENCHO Administration Bisacodyl 10 mg 09/28/18 03:34 10/06/18 16:03 Dulcolax MA 10 mg QDAY PRN Administration Constipation Dextrose 50 ml 09/28/18 03:11 10/01/18 18:14 D50w (25gm) Syringe IV 50 ml PRN PRN Administration Hypoglycemia Docusate Sodium 100 mg 09/28/18 03:34 Colace FEEDTUBE QDAY PRN Constipation Famotidine 20 mg 10/03/18 16:00 10/09/18 10:24 Pepcid PO 20 mg QDAY LENCHO Administration Ferrous Sulfate 308 mg 09/28/18 10:00 10/09/18 10:22 Ferrous Sulfate FEEDTUBE 308 mg DAILY LENCHO Administration Furosemide 40 mg 10/02/18 18:00 10/09/18 05:45 Lasix IV 40 mg 0600,1800 LENCHO Administration Glycopyrrolate 2 mg 09/28/18 06:00 10/09/18 05:45 Robinul FEEDTUBE 2 mg Q8H LENCHO Administration Heparin Sodium (Porcine) 5,000 unit 09/28/18 10:00 10/09/18 10:24 Heparin SUB-Q 5,000 unit Q12HR LENCHO Administration Hydralazine HCl 10 mg 10/01/18 15:51 10/02/18 05:45 Apresoline IV 10 mg Q4HR PRN Administration Hypertension Insulin Glargine 45 units 10/07/18 22:00 10/08/18 21:58 Lantus SUB-Q 45 units QHS LENCHO Administration Insulin Human Regular 0 units 10/01/18 12:00 10/09/18 12:08 Humulin R SUB-Q Not Given Q6HR [facility] Protocol Lacosamide 100 mg 09/28/18 10:00 10/09/18 10:24 Vimpat PO 100 mg Q12HR LENCHO Administration Lisinopril 10 mg 09/29/18 10:00 10/09/18 10:23 Zestril FEEDTUBE 10 mg QDAY LENCHO Administration Metoclopramide HCl 10 mg 10/02/18 23:57 10/03/18 00:59 Reglan IV 10 mg Q6H PRN Administration Nausea And Vomiting Ondansetron HCl 4 mg 09/28/18 03:17 10/02/18 21:47 Zofran IV 4 mg Q8H PRN Administration Nausea And Vomiting Simple Syrup 15 ml 09/28/18 15:34 09/29/18 04:50 Simple Syrup FEEDTUBE 15 ml PRN PRN Administration Hypoglycemia Simple Syrup 30 ml 09/28/18 15:34 Simple Syrup FEEDTUBE PRN PRN Hypoglycemia Sodium Bicarbonate 325 mg 09/28/18 15:34 Sodium Bicarbonate FEEDTUBE PRN PRN For Clogged Feeding Tube Sucralfate 1 gm 09/28/18 04:00 10/09/18 13:36 Carafate FEEDTUBE 1 gm Q8H LENCHO Administration Tamsulosin HCl 0.4 mg 09/29/18 10:00 10/09/18 10:24 Flomax PO 0.4 mg QDAY LENCHO Administration Nutrition/Malnutrition Assess - Dietary Evaluation Nutrition/Malnutrition Findings: Nutrition Notes Start: 09/28/18 15:13 Freq: Status: Active Protocol: Document 10/07/18 14:04 CASSI (Rec: 10/07/18 14:10 CASSI [email or web address]) Nutrition Notes Initial or Follow up Reassessment Current Diagnosis Diabetes,Sepsis,Respiratory Failure Other Pertinent Diagnosis Aspiration pneu, anemia Current Diet TF - Glucerna 1.2 at 65ml/hr Labs/Tests Na 146 K 3 BUN 39 BG 191 Pertinent Medications Lasix, 40mEq KCl q3h Height 5 ft 7 in Weight 77.[address] [place] Body Weight (kg) 67.27 BMI 26.7 Weight change and time frame Current wt obtained from bed scale Subjective/Other Information TF infusing at goal rate; pt tolerating TF, per RN report. Pt receiving 100ml water flush q4h. Percent of energy/protein needs met: 100% energy 96% pro Burn Absent Trauma Absent #1 Nutrition Diagnosis Inadequate oral intake Diagnosis Progress(for reassessment Continues documentation) Is patient on ventilator? No Is Patient Ambulatory and/or Out of Bed No [facility]EE[facility] [facility] [phone] Calculation Used for Recommendations [facility] Additional Notes Pro needs 1.25-1.5g/k- 116g/day Fluid needs 1ml/kcal Nutrition Intervention Nutrition Support: Continue Glucerna 1.2 at 65 ml /hr. Water flush of 100 mls q 4 hrs . Kcal 1,872 Protein (gm) 94 Fluid (mL) 1,256 Goal #1 TF tolerance Goal #2 TF to meet 80-100% energy and pro needs Follow-Up By: 10/14/18 Additional Comments F/U: stable TF, wt
--- NOTE | 2018-10-09 14:29 | XRay Report ---
CHEST 1 VIEW 2:05 PM INDICATION / CLINICAL INFORMATION: Follow-up pneumonia. COMPARISON: 10/03/2018. FINDINGS: SUPPORT DEVICES: There is a tracheostomy tube in good position. HEART / MEDIASTINUM: Unchanged. LUNGS / PLEURA: Multifocal patchy parenchymal disease in both lungs has shown marked improvement. Mil d patchy disease persists, predominantly in the right upper lobe and left lower lobe. There is no sonya dence of pleural effusion or pneumothorax. ADDITIONAL FINDINGS: No significant additional findings. IMPRESSION: Significant improvement in bilateral pneumonia. Signer Name: Reynold Rolle MD Signed: 10/09/2018 2:25 PM Workstation Name: [id number]
[2018-10-09] MEDS: AUGMENTIN ORAL LIQD PO SCH ×2 (17:42→22:57)
[2018-10-09] MEDS: LASIX PO SCH (22:50)
[2018-10-09] MEDS: LANTUS SUB-Q SCH (23:59)
[2018-10-10] MEDS: HumuLIN R SUB-Q SCH ×4 (00:02→18:37)
[2018-10-10] MEDS: DUONEB *Not for PRN Use IH SCH ×4 (02:32→20:38)
[2018-10-10] MEDS: CARAFATE FEEDTUBE SCH ×3 (04:34→20:55)
[2018-10-10] MEDS: ROBINUL FEEDTUBE SCH ×3 (06:34→22:16)
--- NOTE | 2018-10-10 09:51 | Progress Note ---
Assessment and Plan Assessment and plan: Mr. casillas is a 77-year-old male with recent prolonged hospitalization due to cardiac arrest. Previous history of CVA,. Recently discharged 10 days ago from our hospital with poor prognosis. Patient was comatose up on discharge with hypoxic encephalopathy,. According to neurology consult poor prognosis, poor left ventricular recovery. Preserved brainstem function but otherwise unresponsive. EEG suggestive of hypoxic encephalopathy. He returns from [facility] today For severe hyperglycemia. Treated with subcutaneous insulin at the facility. Noted to have 102.5 rectal temperature. He is currently nonverbal. He does not follow commands. Patient has aspiration pneumonia on antibiotics, persistent fevers, ID following, full CODE STATUS 10/10. Remains afebrile --Febrile illness; persistent fever patient already has aspiration pneumonia on IV antibiotics Monitor for additional 24hrs and if no further fever will plan discharge per ID Discussed extensively with the patients spouse and she understands that the patient is high risk for readmissions. Continue, Antibiotics and supportive care ID following --Aspiration pneumonia; patient is on cefepime and vancomycin will change to augumentin for 5 days on discaharge. Status post Levaquin, aspiration precautions, PEG feeds, Supportive care, follow-up chest x-ray tomorrow, pulmonary consult Elevate the head end of the bed --Chronic respiratory failure; h/o tracheostomy on T piece Continue oxygen nebulizers supportive care Chest x-ray, patient has copious secretions --Anemia; hemoglobin 6.4, No evidence of bleeding s/p 1 unit PRBC transfusion, closely monitor H&H Stool for occult blood --Generalized edema and fluid overload; IV diuretics Monitor input output --Type 2 diabetes mellitus uncontrolled /Hyperglycemia blood sugars are well controlled, continue Accu-Chek sliding scale coverage and tube feeding ,long acting insulin --Toxic metabolic encephalopathy; present on admission Multifactorial, neuro checks and supportive care --History of cardiac arrest in the past; anoxic encephalopathy Supportive care --Sepsis/possible UTI empiric antibiotics, and cultures positive for Yeast. Start Diflucan for total 10 days --Anemia; closely monitor H&H and transfuse as needed --Elevated troponins; probably nonspecific Closely monitor, cardiology consult if needed --DVT prophylaxis; Lovenox Full CODE STATUS Discharge planning; DC and transfer back to SNF when pre-cert completed by insurance company Monitor closely and adjust the management as needed Plan of care is reviewed with the patient's and his nurse History Interval history: Patient seen and examined, remains in encephalopathic state, but stable, family at bedside. No new complaints. anticipating discharge today Hospitalist Physical - Physical exam Narrative exam: General: chroniclly ill appearing, unresponsive, Eyes: Present: PERRL, EOM intact, - Neck Neck: Present: supple, normal ROM - Respiratory Respiratory effort: normal Respiratory: bilateral: diminished, rhonchi, negative: rales, wheezing. Trach inplace. - Cardiovascular Rhythm: regular Heart Sounds: Present: S1 & S2 - Extremities Extremities: no ischemia Extremity abnormal: edema - Abdominal General gastrointestinal: soft, non-tender, non-distended, normal bowel sounds - Integumentary Integumentary: Present: clear, warm, multiple decub/sacarl pressure ulcers, contracted - Psychiatric Psychiatric: other (noncommunicative) - Neurologic Neurologic: other (unresponsive) - Constitutional Vitals: Temp Pulse Resp BP Pulse Ox 98.9 F 88 18 121/62 97 10/10/18 07:51 10/10/18 08:20 10/10/18 08:20 10/10/18 07:51 10/10/18 09:26 General appearance: Present: no acute distress, well-nourished, obese, other (tracheostomy on T piece) Results - Labs CBC & Chem 7: 10/08/18 04:00 10/08/18 04:00 Labs: Laboratory Last Values WBC 8.2 K/mm3 (4.5-11.0) 10/08/18 04:00 RBC 2.75 M/mm3 (3.65-5.03) L 10/08/18 04:00 Hgb 7.6 gm/dl (11.8-15.2) L 10/08/18 04:00 Hct 22.5 % (35.5-45.6) L 10/08/18 04:00 MCV 82 fl (84-94) L 10/08/18 04:00 MCH 28 pg (28-32) 10/08/18 04:00 MCHC 34 % (32-34) 10/08/18 04:00 RDW 22.2 % (13.2-15.2) H 10/08/18 04:00 Plt Count 326 K/mm3 (140-440) 10/08/18 04:00 Lymph % (Auto) 17.0 % (13.4-35.0) 10/08/18 04:00 [place] % (Auto) 12.7 % (0.0-7.3) H 10/08/18 04:00 Eos % (Auto) 9.6 % (0.0-4.3) H 10/08/18 04:00 Baso % (Auto) 1.3 % (0.0-1.8) 10/08/18 04:00 Lymph # 1.4 K/mm3 (1.2-5.4) 10/08/18 04:00 [place] # 1.0 K/mm3 (0.0-0.8) H 10/08/18 04:00 Eos # 0.8 K/mm3 (0.0-0.4) H 10/08/18 04:00 Baso # 0.1 K/mm3 (0.0-0.1) 10/08/18 04:00 Seg Neutrophils % 59.4 % (40.0-70.0) 10/08/18 04:00 Seg Neutrophils # 4.9 K/mm3 (1.8-7.7) 10/08/18 04:00 POC ABG pH 7.525 (7.35-7.45) H 10/03/18 04:37 POC ABG pCO2 < 30 (35-45) L 10/03/18 04:37 POC ABG pO2 63 (80-105) L 10/03/18 04:37 POC ABG HCO3 23.4 (22-26 mml/L) 10/03/18 04:37 POC ABG Total CO2 24 (23-27mmol/L) 10/03/18 04:37 POC ABG O2 Sat 94 10/03/18 04:37 POC ABG Base Excess 1 ((-2) - (+3)mmol/L) 10/03/18 04:37 40 % 10/03/18 04:37 Sodium 146 mmol/L (137-145) H 10/08/18 04:00 Potassium 3.8 mmol/L (3.6-5.0) D 10/08/18 04:00 Chloride 110.0 mmol/L (98-107) H 10/08/18 04:00 Carbon Dioxide 27 mmol/L (22-30) 10/08/18 04:00 13 mmol/L 10/08/18 04:00 BUN 42 mg/dL (9-20) H 10/08/18 04:00 1.5 mg/dL (0.8-1.5) 10/08/18 04:00 Estimated GFR 55 ml/min 10/08/18 04:00 28 % 10/08/18 04:00 Glucose 209 mg/dL (75-100) H 10/08/18 04:00 POC Glucose 215 (70-105) H 10/10/18 06:39 Lactic Acid 1.20 mmol/L (0.7-2.0) 10/03/18 15:26 Calcium 7.5 mg/dL (8.4-10.2) L 10/08/18 04:00 Phosphorus 3.40 mg/dL (2.5-4.5) 10/02/18 08:45 Magnesium 2.10 mg/dL (1.7-2.3) 10/08/18 04:00 0.20 mg/dL (0.1-1.2) 10/08/18 04:00 AST 38 units/L (5-40) 10/08/18 04:00 ALT 45 units/L (7-56) 10/08/18 04:00 138 units/L (35-129) H 10/08/18 04:00 301 units/L (55-170) H 09/28/18 12:11 CK-MB (CK-2) 3.1 ng/mL (0.0-4.0) 09/28/18 12:11 CK-MB (CK-2) Rel Index 1.0 (0-4) 09/28/18 12:11 0.294 ng/mL (0.00-0.029) H* D 09/28/18 12:11 14.70 mg/dL (0.00-1.30) H 10/03/18 15:26 5.8 g/dL (6.3-8.2) L 10/08/18 04:00 1.8 g/dL (3.9-5) L 10/08/18 04:00 0.5 % 10/08/18 04:00 Triglycerides 61 mg/dL (2-149) 09/27/18 23:00 Cholesterol 56 mg/dL (50-199) 09/27/18 23:00 25 mg/dL (50-130) L 09/27/18 23:00 19 mg/dL (40-59) L 09/27/18 23:00 2.94 % 09/27/18 23:00 Yellow (Yellow) 09/28/18 01:05 Cloudy (Clear) 09/28/18 01:05 7.0 (5.0-7.0) 09/28/18 01:[address] 1.017 (1.003-1.030) 09/28/18 01:05 100 mg/dl mg/dL (Negative) 09/28/18 01:05 150 mg/dL (Negative) 09/28/18 01:05 Neg mg/dL (Negative) 09/28/18 01:05 Sm (Negative) 09/28/18 01:05 Neg (Negative) 09/28/18 01:05 Neg (Negative) 09/28/18 01:05 < 2.0 mg/dL (<2.0) 09/28/18 01:05 Ur Leukocyte Esterase Lg (Negative) 09/28/18 01:05 63.0 /HPF (0.0-6.0) H 09/28/18 01:05 182.0 /HPF (0.0-6.0) 09/28/18 01:05 U Epithel Cells (Auto) < 1.0 /HPF (0-13.0) 09/28/18 01:05 2+ /HPF (Negative) 09/28/18 01:05 Few /HPF 09/28/18 01:05 3+ /HPF 09/28/18 01:05 Random Vancomycin 23.4 ug/mL (0-40.0) 10/03/18 19:57 Blood Type O POSITIVE 10/06/18 09:48 Antibody Screen Negative 10/06/18 09:48 Crossmatch See Detail 10/06/18 09:48 Active Medications - Current Medications Current Medications: Generic Name Dose Route Start Last Admin Trade Name Freq PRN Reason Stop Dose Admin Acetaminophen 650 mg 09/28/18 03:16 10/07/18 18:51 Tylenol SC 650 mg Q4H PRN Administration Fever >101 Albuterol 2.5 mg 10/08/18 11:00 Proventil IH Q3HRT PRN Shortness Of Breath Albuterol/Ipratropium 1 ampul 10/08/18 14:00 10/10/18 08:00 Duoneb *Not For Prn Use* IH 1 ampul Q6HRT LENCHO Administration Amantadine HCl 100 mg 09/28/18 10:00 10/09/18 10:22 Symmetrel FEEDTUBE 100 mg DAILY LENCHO Administration Amlodipine Besylate 5 mg 09/28/18 10:00 10/09/18 10:25 Norvasc FEEDTUBE 5 mg DAILY LENCHO Administration Amoxicillin/Clavulanate Potassium 875 mg 10/09/18 10:00 10/09/18 22:57 Augmentin Oral Liqd PO 875 mg Q12HR LENCHO Administration Lipase/Protease/Amylase 1 each 09/28/18 15:34 Pancreazgenia Alas 10,500 Unit FEEDTUBE PRN PRN For Clogged Feeding Tube Ascorbic Acid 500 mg 09/28/18 10:00 10/09/18 10:24 Vitamin C FEEDTUBE 500 mg QDAY LENCHO Administration Aspirin 81 mg 09/29/18 10:00 10/09/18 10:23 Baby Aspirin FEEDTUBE 81 mg QDAY LENCHO Administration Atorvastatin Calcium 40 mg 09/28/18 22:00 10/09/18 22:50 Lipitor FEEDTUBE 40 mg QHS LENCHO Administration Bisacodyl 10 mg 09/28/18 03:34 10/06/18 16:03 Dulcolax SC 10 mg QDAY PRN Administration Constipation Dextrose 50 ml 09/28/18 03:11 10/01/18 18:14 D50w (25gm) Syringe IV 50 ml PRN PRN Administration Hypoglycemia Docusate Sodium 100 mg 09/28/18 03:34 Colace FEEDTUBE QDAY PRN Constipation Famotidine 20 mg 10/03/18 16:00 10/09/18 10:24 Pepcid PO 20 mg QDAY LENCHO Administration Ferrous Sulfate 308 mg 09/28/18 10:00 10/09/18 10:22 Ferrous Sulfate FEEDTUBE 308 mg DAILY LENCHO Administration Furosemide 20 mg 10/09/18 22:00 10/09/18 22:50 Lasix PO 20 mg QDAY LENCHO Administration Glycopyrrolate 2 mg 09/28/18 06:00 10/10/18 06:34 Robinul FEEDTUBE 2 mg Q8H LENCHO Administration Heparin Sodium (Porcine) 5,000 unit 09/28/18 10:00 10/09/18 22:54 Heparin SUB-Q 5,000 unit Q12HR LENCHO Administration Hydralazine HCl 10 mg 10/01/18 15:51 10/02/18 05:45 Apresoline IV 10 mg Q4HR PRN Administration Hypertension Insulin Glargine 45 units 10/07/18 22:00 10/09/18 23:59 Lantus SUB-Q 45 units QHS LENCHO Administration Insulin Human Regular 0 units 10/01/18 12:00 10/10/18 07:02 Humulin R SUB-Q 3 units Q6HR LENCHO Administration Protocol Lacosamide 100 mg 09/28/18 10:00 10/09/18 22:50 Vimpat PO 100 mg Q12HR LENCHO Administration Lisinopril 10 mg 09/29/18 10:00 10/09/18 10:23 Zestril FEEDTUBE 10 mg QDAY LENCHO Administration Metoclopramide HCl 10 mg 10/02/18 23:57 10/03/18 00:59 Reglan IV 10 mg Q6H PRN Administration Nausea And Vomiting Ondansetron HCl 4 mg 09/28/18 03:17 10/02/18 21:47 Zofran IV 4 mg Q8H PRN Administration Nausea And Vomiting Simple Syrup 15 ml 09/28/18 15:34 09/29/18 04:50 Simple Syrup FEEDTUBE 15 ml PRN PRN Administration Hypoglycemia Simple Syrup 30 ml 09/28/18 15:34 Simple Syrup FEEDTUBE PRN PRN Hypoglycemia Sodium Bicarbonate 325 mg 09/28/18 15:34 Sodium Bicarbonate FEEDTUBE PRN PRN For Clogged Feeding Tube Sucralfate 1 gm 09/28/18 04:00 10/10/18 04:34 Carafate FEEDTUBE 1 gm Q8H LENCHO Administration Tamsulosin HCl 0.4 mg 09/29/18 10:00 10/09/18 10:24 Flomax PO 0.4 mg QDAY LENCHO Administration Nutrition/Malnutrition Assess - Dietary Evaluation Nutrition/Malnutrition Findings: Nutrition Notes Start: 09/28/18 15:13 Freq: Status: Active Protocol: Document 10/07/18 14:04 CASSI (Rec: 10/07/18 14:10 [facility]- [email or web address]) Nutrition Notes Initial or Follow up Reassessment Current Diagnosis Diabetes,Sepsis,Respiratory Failure Other Pertinent Diagnosis Aspiration pneu, anemia Current Diet TF - Glucerna 1.2 at 65ml/hr Labs/Tests Na 146 K 3 BUN 39 BG 191 Pertinent Medications Lasix, 40mEq KCl q3h Height 5 ft 7 in Weight 77.39 kg [place] Body Weight (kg) 67.27 BMI 26.7 Weight change and time frame Current wt obtained from bed scale Subjective/Other Information TF infusing at goal rate; pt tolerating TF, per RN report. Pt receiving 100ml water flush q4h. Percent of energy/protein needs met: 100% energy 96% pro Burn Absent Trauma Absent #1 Nutrition Diagnosis Inadequate oral intake Diagnosis Progress(for reassessment Continues documentation) Is patient on ventilator? No Is Patient Ambulatory and/or Out of Bed No REE-([facility]-confined to bed) 1511.702 Calculation Used for Recommendations [facility] Additional Notes Pro needs 1.25-1.5g/k- 116g/day Fluid needs 1ml/kcal Nutrition Intervention Nutrition Support: Continue Glucerna 1.2 at 65 ml /hr. Water flush of 100 mls q 4 hrs . Kcal 1,872 Protein (gm) 94 Fluid (mL) 1,256 Goal #1 TF tolerance Goal #2 TF to meet 80-100% energy and pro needs Follow-Up By: 10/14/18 Additional Comments F/U: stable TF, wt
[2018-10-10] MEDS: BABY ASPIRIN FEEDTUBE SCH (10:06)
[2018-10-10] MEDS: PEPCID PO SCH (10:08)
[2018-10-10] MEDS: FLOMAX PO SCH (10:08)
[2018-10-10] MEDS: NORVASC FEEDTUBE SCH (10:08)
[2018-10-10] MEDS: VITAMIN C FEEDTUBE SCH (10:08)
[2018-10-10] MEDS: VIMPAT PO SCH ×2 (10:08→22:16)
[2018-10-10] MEDS: ZESTRIL FEEDTUBE SCH (10:08)
[2018-10-10] MEDS: LASIX PO SCH (10:09)
[2018-10-10] MEDS: HEPARIN SUB-Q SCH ×2 (10:09→22:18)
[2018-10-10] MEDS: FERROUS SULFATE FEEDTUBE SCH (10:09)
[2018-10-10] MEDS: SYMMETREL FEEDTUBE SCH (10:10)
[2018-10-10] MEDS: AUGMENTIN ORAL LIQD PO SCH ×2 (10:20→22:16)
--- NOTE | 2018-10-10 10:38 | Progress Note ---
Assessment and Plan Patient is resting on T-tube FIO2 of 60%. O2 requirements went up. Oxygen saturation of 97%. Patient is not responding to verbal stimuli. No acute respiratory distress at rest. Patient afebrile. No leukocytosis. - Patient Problems (1) HCAP (healthcare-associated pneumonia) Current Visit: Yes Status: Acute Plan to address problem: Patient is on Augmentin. Continue FIO2 of 60% on T-tube. (2) Acute and chronic respiratory failure Current Visit: No Status: Acute Qualifiers: Respiratory failure complication: hypoxia Qualified Code(s): J96.21 - Acute and chronic respiratory failure with hypoxia Plan to address problem: S/P tracheostomy. T-tube FIO2 of 60%. Albuterol aerosol treatment q 6 hours Continue S/C heparin. Continue famotidine Patient is on Augmentin. (3) History of tracheostomy Current Visit: Yes Status: Chronic Plan to address problem: Tracheostomy care by respiratory therapy. Subjective Date of service: 10/10/18 Principal diagnosis: Ac on ch hypoxemic resp failure; HAP; Urinary tract infec tion; DM II Interval history: Patient is resting on T-tube FIO2 of 60%. O2 requirements went up. Oxygen saturation of 97%. Patient is not responding to verbal stimuli. No acute respiratory distress at rest. Patient afebrile. No leukocytosis. Objective Vital Signs - 12hr 10/10/18 10/10/18 10/10/18 02:33 02:45 02:46 Temperature 99.0 F Pulse Rate 83 Pulse Rate [ 88 93 H Anterior Bilateral Throughout] Respiratory 20 Rate Respiratory 20 22 Rate [Anterior Bilateral Throughout] Blood Pressure 108/47 O2 Sat by Pulse 96 Oximetry O2 Sat by Pulse Oximetry [ Assessment] 10/10/18 10/10/18 10/10/18 07:51 08:00 08:10 Temperature 98.9 F Pulse Rate 78 Pulse Rate [ 89 Anterior Bilateral Throughout] Respiratory 18 Rate Respiratory 18 Rate [Anterior Bilateral Throughout] Blood Pressure 121/62 O2 Sat by Pulse 97 Oximetry O2 Sat by Pulse 98 Oximetry [ Assessment] 10/10/18 10/10/18 08:20 09:26 Temperature Pulse Rate Pulse Rate [ 88 Anterior Bilateral Throughout] Respiratory Rate Respiratory 18 Rate [Anterior Bilateral Throughout] Blood Pressure O2 Sat by Pulse 97 Oximetry O2 Sat by Pulse Oximetry [ Assessment] Constitutional: no acute distress, asleep Eyes: non-icteric ENT: oropharynx moist Neck: supple, no lymphadenopathy, no JVD, other (midline tracheostomy tube) Effort: mildly labored Ascultation: Bilateral: diminished breath sounds, rhonchi Percussion: Bilateral: not dull Cardiovascular: regular rate and rhythm Gastrointestinal: normoactive bowel sounds, soft, non-tender, non-distended Integumentary: rash Extremities: no cyanosis, pulses normal, no ischemia or petechiae, edema (trace now) Neurologic: unable to assess Psychiatric: other (encephalopathic) CBC and BMP: 10/08/18 04:00 10/08/18 04:00 ABG, PT/INR, D-dimer: ABG POC ABG pH 7.525 (7.35-7.45) H 10/03/18 04:37 POC ABG pCO2 < 30 (35-45) L 10/03/18 04:37 POC ABG pO2 63 (80-105) L 10/03/18 04:37 POC ABG HCO3 23.4 (22-26 mml/L) 10/03/18 04:37 POC ABG Total CO2 24 (23-27mmol/L) 10/03/18 04:37 POC ABG O2 Sat 94 10/03/18 04:37 Abnormal lab findings: Abnormal Labs 09/27/18 09/27/18 09/27/18 22:54 23:00 23:00 RBC 2.71 L Hgb 7.4 L Hct 22.0 L MCV 81 L MCH 27 L RDW 21.4 H Lymph % (Auto) [place] % (Auto) 13.8 H Eos % (Auto) [place] # 1.3 H Eos # Seg Neutrophils % Seg Neutrophils # POC ABG pH POC ABG pCO2 POC ABG pO2 Sodium Potassium Chloride BUN 40 H Glucose 431 H POC Glucose 456 H Calcium AST 78 H ALT 107 H Alkaline Phosphatase 178 H Total Creatine Kinase Troponin T 0.407 H* C-Reactive Protein Total Protein Albumin 1.9 L LDL Cholesterol Direct 25 L HDL Cholesterol 19 L Urine WBC (Auto) Crossmatch 09/27/18 09/28/18 09/28/18 23:34 01:05 02:43 RBC Hgb Hct MCV MCH RDW Lymph % (Auto) [place] % (Auto) Eos % (Auto) [place] # Eos # Seg Neutrophils % Seg Neutrophils # POC ABG pH 7.525 H POC ABG pCO2 33.1 L POC ABG pO2 Sodium Potassium Chloride BUN Glucose POC Glucose 497 H Calcium AST ALT Alkaline Phosphatase Total Creatine Kinase Troponin T C-Reactive Protein Total Protein Albumin LDL Cholesterol Direct HDL Cholesterol Urine WBC (Auto) 63.0 H Crossmatch 09/28/18 09/28/18 09/28/18 04:11 07:13 11:47 RBC Hgb Hct MCV MCH RDW Lymph % (Auto) [place] % (Auto) Eos % (Auto) [place] # Eos # Seg Neutrophils % Seg Neutrophils # POC ABG pH POC ABG pCO2 POC ABG pO2 Sodium Potassium Chloride BUN Glucose POC Glucose 362 H 392 H 244 H Calcium AST ALT Alkaline Phosphatase Total Creatine Kinase Troponin T C-Reactive Protein Total Protein Albumin LDL Cholesterol Direct HDL Cholesterol Urine WBC (Auto) Crossmatch 09/28/18 09/28/18 09/29/18 12:11 16:32 00:18 RBC Hgb Hct MCV MCH RDW Lymph % (Auto) [place] % (Auto) Eos % (Auto) [place] # Eos # Seg Neutrophils % Seg Neutrophils # POC ABG pH POC ABG pCO2 POC ABG pO2 Sodium Potassium Chloride BUN Glucose POC Glucose 159 H 118 H Calcium AST ALT Alkaline Phosphatase Total Creatine Kinase 301 H Troponin T 0.294 H* D C-Reactive Protein Total Protein Albumin LDL Cholesterol Direct HDL Cholesterol Urine WBC (Auto) Crossmatch 09/29/18 09/29/18 09/29/18 04:28 11:23 18:58 RBC Hgb Hct MCV MCH RDW Lymph % (Auto) [place] % (Auto) Eos % (Auto) [place] # Eos # Seg Neutrophils % Seg Neutrophils # POC ABG pH POC ABG pCO2 POC ABG pO2 Sodium Potassium Chloride BUN Glucose POC Glucose 67 L 126 H 167 H Calcium AST ALT Alkaline Phosphatase Total Creatine Kinase Troponin T C-Reactive Protein Total Protein Albumin LDL Cholesterol Direct HDL Cholesterol Urine WBC (Auto) Crossmatch 09/29/18 09/29/18 09/30/18 20:51 23:41 04:56 RBC Hgb Hct MCV MCH RDW Lymph % (Auto) [place] % (Auto) Eos % (Auto) [place] # Eos # Seg Neutrophils % Seg Neutrophils # POC ABG pH POC ABG pCO2 POC ABG pO2 Sodium Potassium Chloride BUN Glucose POC Glucose 182 H 170 H 133 H Calcium AST ALT Alkaline Phosphatase Total Creatine Kinase Troponin T C-Reactive Protein Total Protein Albumin LDL Cholesterol Direct HDL Cholesterol Urine WBC (Auto) Crossmatch 09/30/18 09/30/18 09/30/18 12:37 16:25 20:35 RBC Hgb Hct MCV MCH RDW Lymph % (Auto) [place] % (Auto) Eos % (Auto) [place] # Eos # Seg Neutrophils % Seg Neutrophils # POC ABG pH POC ABG pCO2 POC ABG pO2 Sodium Potassium Chloride BUN Glucose POC Glucose 182 H 185 H 227 H Calcium AST ALT Alkaline Phosphatase Total Creatine Kinase Troponin T C-Reactive Protein Total Protein Albumin LDL Cholesterol Direct HDL Cholesterol Urine WBC (Auto) Crossmatch 09/30/18 10/01/18 10/01/18 23:56 04:05 13:22 RBC Hgb Hct MCV MCH RDW Lymph % (Auto) [place] % (Auto) Eos % (Auto) [place] # Eos # Seg Neutrophils % Seg Neutrophils # POC ABG pH POC ABG pCO2 POC ABG pO2 Sodium Potassium Chloride BUN Glucose POC Glucose 226 H 182 H 122 H Calcium AST ALT Alkaline Phosphatase Total Creatine Kinase Troponin T C-Reactive Protein Total Protein Albumin LDL Cholesterol Direct HDL Cholesterol Urine WBC (Auto) Crossmatch 10/01/18 10/01/18 10/01/18 17:58 18:49 23:42 RBC Hgb Hct MCV MCH RDW Lymph % (Auto) [place] % (Auto) Eos % (Auto) [place] # Eos # Seg Neutrophils % Seg Neutrophils # POC ABG pH POC ABG pCO2 POC ABG pO2 Sodium Potassium Chloride BUN Glucose POC Glucose 62 L 140 H 172 H Calcium AST ALT Alkaline Phosphatase Total Creatine Kinase Troponin T C-Reactive Protein Total Protein Albumin LDL Cholesterol Direct HDL Cholesterol Urine WBC (Auto) Crossmatch 10/02/18 10/02/18 10/02/18 06:25 08:45 08:45 RBC 2.65 L Hgb 7.0 L Hct 21.2 L MCV 80 L MCH 26 L RDW 21.0 H Lymph % (Auto) [place] % (Auto) 9.7 H Eos % (Auto) [place] # 1.0 H Eos # Seg Neutrophils % 71.9 H Seg Neutrophils # POC ABG pH POC ABG pCO2 POC ABG pO2 Sodium Potassium Chloride BUN 29 H Glucose 229 H POC Glucose 226 H Calcium 7.9 L AST ALT Alkaline Phosphatase Total Creatine Kinase Troponin T C-Reactive Protein Total Protein Albumin LDL Cholesterol Direct HDL Cholesterol Urine WBC (Auto) Crossmatch 10/02/18 10/02/18 10/02/18 12:06 17:42 21:02 RBC Hgb Hct MCV MCH RDW Lymph % (Auto) [place] % (Auto) Eos % (Auto) [place] # Eos # Seg Neutrophils % Seg Neutrophils # POC ABG pH POC ABG pCO2 POC ABG pO2 Sodium Potassium Chloride BUN Glucose POC Glucose 217 H 216 H 116 H Calcium AST ALT Alkaline Phosphatase Total Creatine Kinase Troponin T C-Reactive Protein Total Protein Albumin LDL Cholesterol Direct HDL Cholesterol Urine WBC (Auto) Crossmatch 10/03/18 10/03/18 10/03/18 00:29 00:49 04:37 RBC 2.87 L Hgb 7.6 L Hct 23.0 L MCV 80 L MCH 26 L RDW 20.5 H Lymph % (Auto) 11.6 L [place] % (Auto) 7.5 H Eos % (Auto) [place] # Eos # Seg Neutrophils % 78.0 H Seg Neutrophils # 8.4 H POC ABG pH 7.525 H POC ABG pCO2 < 30 L POC ABG pO2 63 L Sodium Potassium Chloride BUN Glucose POC Glucose 117 H Calcium AST ALT Alkaline Phosphatase Total Creatine Kinase Troponin T C-Reactive Protein Total Protein Albumin LDL Cholesterol Direct HDL Cholesterol Urine WBC (Auto) Crossmatch 10/03/18 10/03/18 10/03/18 05:49 12:20 15:26 RBC Hgb Hct MCV MCH RDW Lymph % (Auto) [place] % (Auto) Eos % (Auto) [place] # Eos # Seg Neutrophils % Seg Neutrophils # POC ABG pH POC ABG pCO2 POC ABG pO2 Sodium Potassium Chloride BUN Glucose POC Glucose 218 H 238 H Calcium AST ALT Alkaline Phosphatase Total Creatine Kinase Troponin T C-Reactive Protein 14.70 H Total Protein Albumin LDL Cholesterol Direct HDL Cholesterol Urine WBC (Auto) Crossmatch 10/03/18 10/03/18 10/04/18 16:35 21:13 00:26 RBC Hgb Hct MCV MCH RDW Lymph % (Auto) [place] % (Auto) Eos % (Auto) [place] # Eos # Seg Neutrophils % Seg Neutrophils # POC ABG pH POC ABG pCO2 POC ABG pO2 Sodium Potassium Chloride BUN Glucose POC Glucose 219 H 158 H 181 H Calcium AST ALT Alkaline Phosphatase Total Creatine Kinase Troponin T C-Reactive Protein Total Protein Albumin LDL Cholesterol Direct HDL Cholesterol Urine WBC (Auto) Crossmatch 10/04/18 10/04/1819 05:33 12:10 15:58 RBC Hgb Hct MCV MCH RDW Lymph % (Auto) [place] % (Auto) Eos % (Auto) [place] # Eos # Seg Neutrophils % Seg Neutrophils # POC ABG pH POC ABG pCO2 POC ABG pO2 Sodium Potassium Chloride BUN Glucose POC Glucose 209 H 270 H 266 H Calcium AST ALT Alkaline Phosphatase Total Creatine Kinase Troponin T C-Reactive Protein Total Protein Albumin LDL Cholesterol Direct HDL Cholesterol Urine WBC (Auto) Crossmatch 10/05/18 10/05/18 10/05/18 06:18 11:52 17:17 RBC Hgb Hct MCV MCH RDW Lymph % (Auto) [place] % (Auto) Eos % (Auto) [place] # Eos # Seg Neutrophils % Seg Neutrophils # POC ABG pH POC ABG pCO2 POC ABG pO2 Sodium Potassium Chloride BUN Glucose POC Glucose 107 H 218 H 183 H Calcium AST ALT Alkaline Phosphatase Total Creatine Kinase Troponin T C-Reactive Protein Total Protein Albumin LDL Cholesterol Direct HDL Cholesterol Urine WBC (Auto) Crossmatch 10/06/18 10/06/18 10/06/18 00:11 06:01 06:01 RBC 2.46 L Hgb 6.4 L Hct 19.8 L* MCV 80 L MCH 26 L RDW 21.7 H Lymph % (Auto) [place] % (Auto) 10.4 H Eos % (Auto) [place] # 1.1 H Eos # 0.5 H Seg Neutrophils % Seg Neutrophils # POC ABG pH POC ABG pCO2 POC ABG pO2 Sodium 147 H Potassium 3.2 L Chloride 107.7 H BUN 37 H Glucose 153 H POC Glucose 205 H Calcium 7.8 L AST 52 H ALT Alkaline Phosphatase 153 H Total Creatine Kinase Troponin T C-Reactive Protein Total Protein 5.9 L Albumin 1.8 L LDL Cholesterol Direct HDL Cholesterol Urine WBC (Auto) Crossmatch 10/06/18 10/06/18 10/06/18 06:10 08:28 09:48 RBC Hgb Hct MCV MCH RDW Lymph % (Auto) [place] % (Auto) Eos % (Auto) [place] # Eos # Seg Neutrophils % Seg Neutrophils # POC ABG pH POC ABG pCO2 POC ABG pO2 Sodium Potassium Chloride BUN Glucose POC Glucose 171 H 185 H Calcium AST ALT Alkaline Phosphatase Total Creatine Kinase Troponin T C-Reactive Protein Total Protein Albumin LDL Cholesterol Direct HDL Cholesterol Urine WBC (Auto) Crossmatch See Detail 10/06/18 10/06/18 10/07/18 12:31 17:50 00:00 RBC Hgb Hct MCV MCH RDW Lymph % (Auto) [place] % (Auto) Eos % (Auto) [place] # Eos # Seg Neutrophils % Seg Neutrophils # POC ABG pH POC ABG pCO2 POC ABG pO2 Sodium Potassium Chloride BUN Glucose POC Glucose 131 H 244 H 261 H Calcium AST ALT Alkaline Phosphatase Total Creatine Kinase Troponin T C-Reactive Protein Total Protein Albumin LDL Cholesterol Direct HDL Cholesterol Urine WBC (Auto) Crossmatch 10/07/18 10/07/18 10/07/18 05:21 05:21 09:31 RBC 2.99 L Hgb 8.1 L Hct 24.8 L MCV 83 L MCH 27 L RDW 21.9 H Lymph % (Auto) [place] % (Auto) 10.5 H Eos % (Auto) 4.7 H [place] # 1.0 H Eos # Seg Neutrophils % Seg Neutrophils # POC ABG pH POC ABG pCO2 POC ABG pO2 Sodium 146 H Potassium 3.0 L Chloride 107.6 H BUN 39 H Glucose 191 H POC Glucose 200 H Calcium 8.3 L AST 45 H ALT Alkaline Phosphatase 149 H Total Creatine Kinase Troponin T C-Reactive Protein Total Protein Albumin 1.7 L LDL Cholesterol Direct HDL Cholesterol Urine WBC (Auto) Crossmatch 10/07/18 10/07/18 10/08/18 11:45 17:45 00:55 RBC Hgb Hct MCV MCH RDW Lymph % (Auto) [place] % (Auto) Eos % (Auto) [place] # Eos # Seg Neutrophils % Seg Neutrophils # POC ABG pH POC ABG pCO2 POC ABG pO2 Sodium Potassium Chloride BUN Glucose POC Glucose 236 H 269 H 226 H Calcium AST ALT Alkaline Phosphatase Total Creatine Kinase Troponin T C-Reactive Protein Total Protein Albumin LDL Cholesterol Direct HDL Cholesterol Urine WBC (Auto) Crossmatch 10/08/18 10/08/18 10/08/18 04:00 04:00 05:37 RBC 2.75 L Hgb 7.6 L Hct 22.5 L MCV 82 L MCH RDW 22.2 H Lymph % (Auto) [place] % (Auto) 12.7 H Eos % (Auto) 9.6 H [place] # 1.0 H Eos # 0.8 H Seg Neutrophils % Seg Neutrophils # POC ABG pH POC ABG pCO2 POC ABG pO2 Sodium 146 H Potassium Chloride 110.0 H BUN 42 H Glucose 209 H POC Glucose 243 H Calcium 7.5 L AST ALT Alkaline Phosphatase 138 H Total Creatine Kinase Troponin T C-Reactive Protein Total Protein 5.8 L Albumin 1.8 L LDL Cholesterol Direct HDL Cholesterol Urine WBC (Auto) Crossmatch 10/08/18 10/08/18 10/09/18 11:42 17:46 00:28 RBC Hgb Hct MCV MCH RDW Lymph % (Auto) [place] % (Auto) Eos % (Auto) [place] # Eos # Seg Neutrophils % Seg Neutrophils # POC ABG pH POC ABG pCO2 POC ABG pO2 Sodium Potassium Chloride BUN Glucose POC Glucose 191 H 199 H 191 H Calcium AST ALT Alkaline Phosphatase Total Creatine Kinase Troponin T C-Reactive Protein Total Protein Albumin LDL Cholesterol Direct HDL Cholesterol Urine WBC (Auto) Crossmatch 10/09/18 10/09/18 10/09/18 05:59 11:28 18:16 RBC Hgb Hct MCV MCH RDW Lymph % (Auto) [place] % (Auto) Eos % (Auto) [place] # Eos # Seg Neutrophils % Seg Neutrophils # POC ABG pH POC ABG pCO2 POC ABG pO2 Sodium Potassium Chloride BUN Glucose POC Glucose 136 H 137 H 108 H Calcium AST ALT Alkaline Phosphatase Total Creatine Kinase Troponin T C-Reactive Protein Total Protein Albumin LDL Cholesterol Direct HDL Cholesterol Urine WBC (Auto) Crossmatch 10/09/18 10/10/18 23:44 06:39 RBC Hgb Hct MCV MCH RDW Lymph % (Auto) [place] % (Auto) Eos % (Auto) [place] # Eos # Seg Neutrophils % Seg Neutrophils # POC ABG pH POC ABG pCO2 POC ABG pO2 Sodium Potassium Chloride BUN Glucose POC Glucose 197 H 215 H Calcium AST ALT Alkaline Phosphatase Total Creatine Kinase Troponin T C-Reactive Protein Total Protein Albumin LDL Cholesterol Direct HDL Cholesterol Urine WBC (Auto) Crossmatch Chest x-ray: report reviewed (Recent chest xray reported significant improvement in Pneumonia.), image reviewed Allied health notes reviewed: nursing
[2018-10-10] MEDS: LANTUS SUB-Q SCH (22:39)
[2018-10-11] MEDS: HumuLIN R SUB-Q SCH ×5 (00:40→17:44)
[2018-10-11] MEDS: DUONEB *Not for PRN Use IH SCH ×4 (02:50→20:53)
[2018-10-11] MEDS: ROBINUL FEEDTUBE SCH ×3 (05:55→22:24)
[2018-10-11] MEDS: CARAFATE FEEDTUBE SCH ×3 (05:55→19:33)
[2018-10-11] MEDS: LASIX PO SCH (09:44)
[2018-10-11] MEDS: FLOMAX PO SCH (09:44)
[2018-10-11] MEDS: VITAMIN C FEEDTUBE SCH (09:44)
[2018-10-11] MEDS: BABY ASPIRIN FEEDTUBE SCH (09:44)
[2018-10-11] MEDS: VIMPAT PO SCH ×2 (09:44→21:29)
[2018-10-11] MEDS: ZESTRIL FEEDTUBE SCH (09:45)
[2018-10-11] MEDS: NORVASC FEEDTUBE SCH (09:45)
[2018-10-11] MEDS: PEPCID PO SCH (09:45)
[2018-10-11] MEDS: SYMMETREL FEEDTUBE SCH (09:46)
[2018-10-11] MEDS: FERROUS SULFATE FEEDTUBE SCH (09:46)
[2018-10-11] MEDS: HEPARIN SUB-Q SCH ×2 (09:47→21:31)
[2018-10-11] MEDS: AUGMENTIN ORAL LIQD PO SCH ×2 (09:54→21:24)
--- NOTE | 2018-10-11 11:22 | Progress Note ---
Assessment and Plan Cultures: 09/27/2018 blood culture: No growth 09/28/2018 urine culture: Yeast: Non-albicans [place] 09/28/2018 MRSA nasal culture: Negative 10/04/2018 tracheal aspirate: Oropharyngeal contamination 10/06/2018 blood culture: no growth to date 10/06/2018 Urine: Yeast: non-albicans [place] A/P: 77-year-old male with recent CVA, prolonged hospitalization following cardiac arrest and recent discharge from the hospital to a fdc, now with: 1) Sepsis: Resolved. no fevers in 24 hours. Source unclear, likely aspiration pneumonia, healthcare associated pneumonia. Possible catheter associated UTI versus multiple skin wounds. Duplex scan reveals no sonographic evidence for DVT in either lower extremity. 2) HCAP v/s aspiration pneumonia: Chest x-ray shows evidence of right upper lobe infiltrate. Patient with chronic respiratory failure status post tracheostomy. Completed 7 days of cefepime and vancomycin. 3) Chronic anoxic encephalopathy 4) Multiple decubitus ulcers: Continue wound care 5) Candiduria: Armas catheter exchanged 10/06/18 Recs: Complete Augmentin 875mg PO Liquid BID ending 10-13-18 Continue wound care Overall poor prognosis, discussed with at bedside. Will sign off. Please call with questions. Tiara Corcoran MD, FACP [facility] C: [phone] O: [phone] F: [phone] Subjective Date of service: 10/11/18 Principal diagnosis: Ac on ch hypoxemic resp failure; HAP; Urinary tract infection; DM II Interval history: Remains unresponsive. No fever. Awaiting placement. at bedside. Objective - Exam Narrative Exam: Physical Exam: Constitutional: Unresponsive. Non verbal. Doesn't follow any commands Head, Ears, Nose: Normocephalic, atraumatic. External ears, nose normal Eyes: Conjunctivae/corneas clear. No icterus. No ptosis. Neck: Trach + Oral: Unable to examine Cardiovascular: S1, S2 normal. Respiratory: Coarse sounds bilaterally GI: Soft, bowel sounds normal. No peritoneal signs. G-tube present, Armas catheter present Musculoskeletal: No pedal edema, no cyanosis. Skin: Multiple skin wounds involving sacrum, bilateral heel regions. Hem/Lymphatic: No palpable cervical or supraclavicular nodes. No lymphangitis Psych: Unresponsive Neurological: Unresponsive, nonverbal - Constitutional Vitals: Vital Signs Temp Pulse Resp BP Pulse Ox 99.0 F 93 H 18 113/57 100 10/11/18 08:03 10/11/18 09:45 10/11/18 08:23 10/11/18 09:45 10/11/18 08:21 Temperature -Last 24 Hours Temperature 99.0 F Temperature 97.7 F Temperature 97.7 F Temperature 98.5 F Temperature 98.2 F - Labs CBC & Chem 7: 10/08/18 04:00 10/08/18 04:00 Labs: Abnormal lab results 10/10/18 10/10/18 10/11/18 Range/Units 11:36 18:08 00:36 POC Glucose 189 H 176 H 166 H (70-105) 10/11/18 Range/Units 06:06 POC Glucose 181 H (70-105)
--- NOTE | 2018-10-11 12:45 | Progress Note ---
Assessment and Plan Assessment and plan: Mr. casillas is a 77-year-old male with recent prolonged hospitalization due to cardiac arrest. Previous history of CVA,. Recently discharged 10 days ago from our hospital with poor prognosis. Patient was comatose up on discharge with hypoxic encephalopathy,. According to neurology consult poor prognosis, poor left ventricular recovery. Preserved brainstem function but otherwise unresponsive. EEG suggestive of hypoxic encephalopathy. He returns from [facility] today For severe hyperglycemia. Treated with subcutaneous insulin at the facility. Noted to have 102.5 rectal temperature. He is currently nonverbal. He does not follow commands. Patient has aspiration pneumonia on antibiotics, persistent fevers, ID following, full CODE STATUS 09/27/2018 blood culture: No growth 09/28/2018 urine culture: Yeast: Non-albicans [place] 09/28/2018 MRSA nasal culture: Negative 10/04/2018 tracheal aspirate: Oropharyngeal contamination 10/06/2018 blood culture: no growth to date 10/06/2018 Urine: Yeast: non-albicans Lea --Spesis -Resolved. Febrile illness; No new fever Discussed extensively with the patients spouse and she understands that the patient is high risk for readmissions. Treated with and will complete abx per ID ID following --Aspiration pneumonia; patient is on cefepime and vancomycin will change to augumentin for 5 days on discharge. Status post Levaquin, aspiration precautions, PEG feeds, Supportive care, follow-up chest x-ray tomorrow, pulmonary consult Elevate the head end of the bed --Chronic respiratory failure; h/o tracheostomy on T piece Continue oxygen nebulizers supportive care Chest x-ray, patient has copious secretions continue aggressive pulmonary toilet --Anemia; hemoglobin 7.6 post transfusion and stable, No evidence of bleeding --Generalized edema and fluid overload;s Monitor input output --Type 2 diabetes mellitus uncontrolled /Hyperglycemia blood sugars are well controlled, continue Accu-Chek sliding scale coverage and tube feeding ,long acting insulin --Toxic metabolic encephalopathy; present on admission Multifactorial, neuro checks and supportive care --History of cardiac arrest in the past; anoxic encephalopathy Supportive care --UTI empiric antibiotics, and cultures positive for Yeast. Start Diflucan for total 10 days --Elevated troponins; probably nonspecific Closely monitor, cardiology consult if needed --DVT prophylaxis; Lovenox Full CODE STATUS Discharge planning; DC and transfer back to SNF when pre-cert completed by insurance company Monitor closely and adjust the management as needed Plan of care is reviewed with the patient's and his nurse Hospitalist Physical - Constitutional Vitals: Temp Pulse Resp BP Pulse Ox 99.0 F 93 H 18 113/57 100 10/11/18 08:03 10/11/18 09:45 10/11/18 08:23 10/11/18 09:45 10/11/18 08:21 General appearance: Present: no acute distress, well-nourished, obese, other (tracheostomy on T piece) Results - Labs CBC & Chem 7: 10/08/18 04:00 10/08/18 04:00 Labs: Laboratory Last Values WBC 8.2 K/mm3 (4.5-11.0) 10/08/18 04:00 RBC 2.75 M/mm3 (3.65-5.03) L 10/08/18 04:00 Hgb 7.6 gm/dl (11.8-15.2) L 10/08/18 04:00 Hct 22.5 % (35.5-45.6) L 10/08/18 04:00 MCV 82 fl (84-94) L 10/08/18 04:00 MCH 28 pg (28-32) 10/08/18 04:00 MCHC 34 % (32-34) 10/08/18 04:00 RDW 22.2 % (13.2-15.2) H 10/08/18 04:00 Plt Count 326 K/mm3 (140-440) 10/08/18 04:00 Lymph % (Auto) 17.0 % (13.4-35.0) 10/08/18 04:00 [place] % (Auto) 12.7 % (0.0-7.3) H 10/08/18 04:00 Eos % (Auto) 9.6 % (0.0-4.3) H 10/08/18 04:00 Baso % (Auto) 1.3 % (0.0-1.8) 10/08/18 04:00 Lymph # 1.4 K/mm3 (1.2-5.4) 10/08/18 04:00 [place] # 1.0 K/mm3 (0.0-0.8) H 10/08/18 04:00 Eos # 0.8 K/mm3 (0.0-0.4) H 10/08/18 04:00 Baso # 0.1 K/mm3 (0.0-0.1) 10/08/18 04:00 Seg Neutrophils % 59.4 % (40.0-70.0) 10/08/18 04:00 Seg Neutrophils # 4.9 K/mm3 (1.8-7.7) 10/08/18 04:00 POC ABG pH 7.525 (7.35-7.45) H 10/03/18 04:37 POC ABG pCO2 < 30 (35-45) L 10/03/18 04:37 POC ABG pO2 63 (80-105) L 10/03/18 04:37 POC ABG HCO3 23.4 (22-26 mml/L) 10/03/18 04:37 POC ABG Total CO2 24 (23-27mmol/L) 10/03/18 04:37 POC ABG O2 Sat 94 10/03/18 04:37 POC ABG Base Excess 1 ((-2) - (+3)mmol/L) 10/03/18 04:37 40 % 10/03/18 04:37 Sodium 146 mmol/L (137-145) H 10/08/18 04:00 Potassium 3.8 mmol/L (3.6-5.0) D 10/08/18 04:00 Chloride 110.0 mmol/L (98-107) H 10/08/18 04:00 Carbon Dioxide 27 mmol/L (22-30) 10/08/18 04:00 13 mmol/L 10/08/18 04:00 BUN 42 mg/dL (9-20) H 10/08/18 04:00 1.5 mg/dL (0.8-1.5) 10/08/18 04:00 Estimated GFR 55 ml/min 10/08/18 04:00 28 % 10/08/18 04:00 Glucose 209 mg/dL (75-100) H 10/08/18 04:00 POC Glucose 229 (70-105) H 10/11/18 11:39 Lactic Acid 1.20 mmol/L (0.7-2.0) 10/03/18 15:26 Calcium 7.5 mg/dL (8.4-10.2) L 10/08/18 04:00 Phosphorus 3.40 mg/dL (2.5-4.5) 10/02/18 08:45 Magnesium 2.10 mg/dL (1.7-2.3) 10/08/18 04:00 0.20 mg/dL (0.1-1.2) 10/08/18 04:00 AST 38 units/L (5-40) 10/08/18 04:00 ALT 45 units/L (7-56) 10/08/18 04:00 138 units/L (35-129) H 10/08/18 04:00 301 units/L (55-170) H 09/28/18 12:11 CK-MB (CK-2) 3.1 ng/mL (0.0-4.0) 09/28/18 12:11 CK-MB (CK-2) Rel Index 1.0 (0-4) 09/28/18 12:11 0.294 ng/mL (0.00-0.029) H* D 09/28/18 12:11 14.70 mg/dL (0.00-1.30) H 10/03/18 15:26 5.8 g/dL (6.3-8.2) L 10/08/18 04:00 1.8 g/dL (3.9-5) L 10/08/18 04:00 0.5 % 10/08/18 04:00 Triglycerides 61 mg/dL (2-149) 09/27/18 23:00 Cholesterol 56 mg/dL (50-199) 09/27/18 23:00 25 mg/dL (50-130) L 09/27/18 23:00 19 mg/dL (40-59) L 09/27/18 23:00 2.94 % 09/27/18 23:00 Yellow (Yellow) 09/28/18 01:05 Cloudy (Clear) 09/28/18 01:05 7.0 (5.0-7.0) 09/28/18 01:05 Ur Specific Pitcher 1.017 (1.003-1.030) 09/28/18 01:05 100 mg/dl mg/dL (Negative) 09/28/18 01:05 150 mg/dL (Negative) 09/28/18 01:05 Neg mg/dL (Negative) 09/28/18 01:05 Sm (Negative) 09/28/18 01:05 Neg (Negative) 09/28/18 01:05 Neg (Negative) 09/28/18 01:05 < 2.0 mg/dL (<2.0) 09/28/18 01:05 Ur Leukocyte Esterase Lg (Negative) 09/28/18 01:05 63.0 /HPF (0.0-6.0) H 09/28/18 01:05 182.0 /HPF (0.0-6.0) 09/28/18 01:05 U Epithel Cells (Auto) < 1.0 /HPF (0-13.0) 09/28/18 01:05 2+ /HPF (Negative) 09/28/18 01:05 Few /HPF 09/28/18 01:05 3+ /HPF 09/28/18 01:05 Random Vancomycin 23.4 ug/mL (0-40.0) 10/03/18 19:57 Blood Type O POSITIVE 10/06/18 09:48 Antibody Screen Negative 10/06/18 09:48 Crossmatch See Detail 10/06/18 09:48 Active Medications - Current Medications Current Medications: Generic Name Dose Route Start Last Admin Trade Name Freq PRN Reason Stop Dose Admin Acetaminophen 650 mg 09/28/18 03:16 10/07/18 18:51 Tylenol WA 650 mg Q4H PRN Administration Fever >101 Albuterol 2.5 mg 10/08/18 11:00 Proventil IH Q3HRT PRN Shortness Of Breath Albuterol/Ipratropium 1 ampul 10/08/18 14:00 10/11/18 08:05 Duoneb *Not For Prn Use* IH 1 ampul Q6HRT LENCHO Administration Amantadine HCl 100 mg 09/28/18 10:00 10/11/18 09:46 Symmetrel FEEDTUBE 100 mg DAILY LENCHO Administration Amlodipine Besylate 5 mg 09/28/18 10:00 10/11/18 09:45 Norvasc FEEDTUBE 5 mg DAILY LENCHO Administration Amoxicillin/Clavulanate Potassium 875 mg 10/09/18 10:00 10/11/18 09:54 Augmentin Oral Liqd PO 875 mg Q12HR LENCHO Administration Lipase/Protease/Amylase 1 each 09/28/18 15:34 Pancreaze 10,500 Unit FEEDTUBE PRN PRN For Clogged Feeding Tube Ascorbic Acid 500 mg 09/28/18 10:00 10/11/18 09:44 Vitamin C FEEDTUBE 500 mg QDAY LENCHO Administration Aspirin 81 mg 09/29/18 10:00 10/11/18 09:44 Baby Aspirin FEEDTUBE 81 mg QDAY LENCHO Administration Atorvastatin Calcium 40 mg 09/28/18 22:00 10/10/18 22:16 Lipitor FEEDTUBE 40 mg QHS LENCHO Administration Bisacodyl 10 mg 09/28/18 03:34 10/06/18 16:03 Dulcolax WA 10 mg QDAY PRN Administration Constipation Dextrose 50 ml 09/28/18 03:11 10/01/18 18:14 D50w (25gm) Syringe IV 50 ml PRN PRN Administration Hypoglycemia Docusate Sodium 100 mg 09/28/18 03:34 Colace FEEDTUBE QDAY PRN Constipation Famotidine 20 mg 10/03/18 16:00 10/11/18 09:45 Pepcid PO 20 mg QDAY LENCHO Administration Ferrous Sulfate 308 mg 09/28/18 10:00 10/11/18 09:46 Ferrous Sulfate FEEDTUBE 308 mg DAILY LENCHO Administration Furosemide 20 mg 10/09/18 22:00 10/11/18 09:44 Lasix PO 20 mg QDAY LENCHO Administration Glycopyrrolate 2 mg 09/28/18 06:00 10/11/18 05:55 Robinul FEEDTUBE 2 mg Q8H LENCHO Administration Heparin Sodium (Porcine) 5,000 unit 09/28/18 10:00 10/11/18 09:47 Heparin SUB-Q 5,000 unit Q12HR LENCHO Administration Hydralazine HCl 10 mg 10/01/18 15:51 10/02/18 05:45 Apresoline IV 10 mg Q4HR PRN Administration Hypertension Insulin Glargine 45 units 10/07/18 22:00 10/10/18 22:39 Lantus SUB-Q 45 units QHS LENCHO Administration Insulin Human Regular 0 units 10/01/18 12:00 10/11/18 11:41 Humulin R SUB-Q 3 units Q6HR LENCHO Administration Protocol Lacosamide 100 mg 09/28/18 10:00 10/11/18 09:44 Vimpat PO 100 mg Q12HR LENCHO Administration Lisinopril 10 mg 09/29/18 10:00 10/11/18 09:45 Zestril FEEDTUBE 10 mg QDAY LENCHO Administration Metoclopramide HCl 10 mg 10/02/18 23:57 10/03/18 00:59 Reglan IV 10 mg Q6H PRN Administration Nausea And Vomiting Ondansetron HCl 4 mg 09/28/18 03:17 10/02/18 21:47 Zofran IV 4 mg Q8H PRN Administration Nausea And Vomiting Simple Syrup 15 ml 09/28/18 15:34 09/29/18 04:50 Simple Syrup FEEDTUBE 15 ml PRN PRN Administration Hypoglycemia Simple Syrup 30 ml 09/28/18 15:34 Simple Syrup FEEDTUBE PRN PRN Hypoglycemia Sodium Bicarbonate 325 mg 09/28/18 15:34 Sodium Bicarbonate FEEDTUBE PRN PRN For Clogged Feeding Tube Sucralfate 1 gm 09/28/18 04:00 10/11/18 11:31 Carafate FEEDTUBE 1 gm Q8H LENCHO Administration Tamsulosin HCl 0.4 mg 09/29/18 10:00 10/11/18 09:44 Flomax PO 0.4 mg QDAY LENCHO Administration Nutrition/Malnutrition Assess - Dietary Evaluation Nutrition/Malnutrition Findings: Nutrition Notes Start: 09/28/18 15:13 Freq: Status: Active Protocol: Document 10/07/18 14:04 CASSI (Rec: 10/07/18 14:10 [facility] [id number]) Nutrition Notes Initial or Follow up Reassessment Current Diagnosis Diabetes,Sepsis,Respiratory Failure Other Pertinent Diagnosis Aspiration pneu, anemia Current Diet TF - Glucerna 1.2 at 65ml/hr Labs/Tests Na 146 K 3 BUN 39 BG 191 Pertinent Medications Lasix, 40mEq KCl q3h Height 5 ft 7 in Weight 77.39 kg [place] Body Weight (kg) 67.27 BMI 26.7 Weight change and time frame Current wt obtained from bed scale Subjective/Other Information TF infusing at goal rate; pt tolerating TF, per RN report. Pt receiving 100ml water flush q4h. Percent of energy/protein needs met: 100% energy 96% pro Burn Absent Trauma Absent #1 Nutrition Diagnosis Inadequate oral intake Diagnosis Progress(for reassessment Continues documentation) Is patient on ventilator? No Is Patient Ambulatory and/or Out of Bed No REE-([facility]-confined to bed) [phone] Calculation Used for Recommendations [facility] Additional Notes Pro needs 1.25-1.5g/k- 116g/day Fluid needs 1ml/kcal Nutrition Intervention Nutrition Support: Continue Glucerna 1.2 at 65 ml /hr. Water flush of 100 mls q 4 hrs . Kcal 1,872 Protein (gm) 94 Fluid (mL) 1,256 Goal #1 TF tolerance Goal #2 TF to meet 80-100% energy and pro needs Follow-Up By: 10/14/18 Additional Comments F/U: stable TF, wt
--- NOTE | 2018-10-11 14:06 | Progress Note ---
Assessment and Plan Patient is resting on T-tube FIO2 of 28%. Oxygen saturation of 100%. Patient is not responding to verbal stimuli. No acute respiratory distress at rest. Patient afebrile. No leukocytosis. - Patient Problems (1) HCAP (healthcare-associated pneumonia) Current Visit: Yes Status: Acute Plan to address problem: Patient is on Augmentin. Continue FIO2 of 28% on T-tube. (2) Acute and chronic respiratory failure Current Visit: No Status: Acute Qualifiers: Respiratory failure complication: hypoxia Qualified Code(s): J96.21 - Acute and chronic respiratory failure with hypoxia Plan to address problem: S/P tracheostomy. T-tube FIO2 of 28%. Albuterol aerosol treatment q 6 hours Continue S/C heparin. Continue famotidine Patient is on Augmentin. (3) History of tracheostomy Current Visit: Yes Status: Chronic Plan to address problem: Tracheostomy care by respiratory therapy. Subjective Date of service: 10/11/18 Principal diagnosis: Ac on ch hypoxemic resp failure; HAP; Urinary tract infection; DM II Interval history: Patient is resting on T-tube FIO2 of 28%. Oxygen saturation of 100%. Patient is not responding to verbal stimuli. No acute respiratory distress at rest. Patient afebrile. No leukocytosis. Objective Vital Signs - 12hr 10/11/18 10/11/18 10/11/18 02:28 02:52 03:01 Temperature 97.7 F Pulse Rate 76 Pulse Rate [ 96 H 94 H Anterior Bilateral Throughout] Respiratory 20 Rate Respiratory 18 18 Rate [Anterior Bilateral Throughout] Blood Pressure 117/61 Blood Pressure [Right] O2 Sat by Pulse 100 Oximetry O2 Sat by Pulse Oximetry [ Assessment] 10/11/18 10/11/18 10/11/18 03:04 08:03 08:05 Temperature 97.7 F 99.0 F Pulse Rate 77 90 Pulse Rate [ 90 Anterior Bilateral Throughout] Respiratory 18 20 Rate Respiratory 18 Rate [Anterior Bilateral Throughout] Blood Pressure 113/57 Blood Pressure 117/61 [Right] O2 Sat by Pulse 100 100 Oximetry O2 Sat by Pulse Oximetry [ Assessment] 10/11/18 10/11/18 10/11/18 08:10 08:21 08:23 Temperature Pulse Rate Pulse Rate [ 93 H Anterior Bilateral Throughout] Respiratory Rate Respiratory 18 Rate [Anterior Bilateral Throughout] Blood Pressure Blood Pressure [Right] O2 Sat by Pulse 100 Oximetry O2 Sat by Pulse 100 Oximetry [ Assessment] 10/11/18 10/11/18 09:45 10:00 Temperature Pulse Rate 93 H Pulse Rate [ Anterior Bilateral Throughout] Respiratory 18 Rate Respiratory Rate [Anterior Bilateral Throughout] Blood Pressure 113/57 Blood Pressure [Right] O2 Sat by Pulse 100 Oximetry O2 Sat by Pulse Oximetry [ Assessment] Constitutional: no acute distress, asleep Eyes: non-icteric ENT: oropharynx moist Neck: supple, no lymphadenopathy, no JVD, other (midline tracheostomy tube) Effort: mildly labored Ascultation: Bilateral: diminished breath sounds, rhonchi Percussion: Bilateral: not dull Cardiovascular: regular rate and rhythm Gastrointestinal: normoactive bowel sounds, soft, non-tender, non-distended Integumentary: rash Extremities: no cyanosis, pulses normal, no ischemia or petechiae, edema (trace now) Neurologic: unable to assess Psychiatric: other (encephalopathic) CBC and BMP: 10/08/18 04:00 10/08/18 04:00 ABG, PT/INR, D-dimer: ABG POC ABG pH 7.525 (7.35-7.45) H 10/03/18 04:37 POC ABG pCO2 < 30 (35-45) L 10/03/18 04:37 POC ABG pO2 63 (80-105) L 10/03/18 04:37 POC ABG HCO3 23.4 (22-26 mml/L) 10/03/18 04:37 POC ABG Total CO2 24 (23-27mmol/L) 10/03/18 04:37 POC ABG O2 Sat 94 10/03/18 04:37 Abnormal lab findings: Abnormal Labs 09/27/18 09/27/18 09/27/18 22:54 23:00 23:00 RBC 2.71 L Hgb 7.4 L Hct 22.0 L MCV 81 L MCH 27 L RDW 21.4 H Lymph % (Auto) Titus % (Auto) 13.8 H Eos % (Auto) Titus # 1.3 H Eos # Seg Neutrophils % Seg Neutrophils # POC ABG pH POC ABG pCO2 POC ABG pO2 Sodium Potassium Chloride BUN 40 H Glucose 431 H POC Glucose 456 H Calcium AST 78 H ALT 107 H Alkaline Phosphatase 178 H Total Creatine Kinase Troponin T 0.407 H* C-Reactive Protein Total Protein Albumin 1.9 L LDL Cholesterol Direct 25 L HDL Cholesterol 19 L Urine WBC (Auto) Crossmatch 09/27/18 09/28/18 09/28/18 23:34 01:05 02:43 RBC Hgb Hct MCV MCH RDW Lymph % (Auto) Titus % (Auto) Eos % (Auto) Titus # Eos # Seg Neutrophils % Seg Neutrophils # POC ABG pH 7.525 H POC ABG pCO2 33.1 L POC ABG pO2 Sodium Potassium Chloride BUN Glucose POC Glucose 497 H Calcium AST ALT Alkaline Phosphatase Total Creatine Kinase Troponin T C-Reactive Protein Total Protein Albumin LDL Cholesterol Direct HDL Cholesterol Urine WBC (Auto) 63.0 H Crossmatch 09/28/18 09/28/18 09/28/18 04:11 07:13 11:47 RBC Hgb Hct MCV MCH RDW Lymph % (Auto) Titus % (Auto) Eos % (Auto) Titus # Eos # Seg Neutrophils % Seg Neutrophils # POC ABG pH POC ABG pCO2 POC ABG pO2 Sodium Potassium Chloride BUN Glucose POC Glucose 362 H 392 H 244 H Calcium AST ALT Alkaline Phosphatase Total Creatine Kinase Troponin T C-Reactive Protein Total Protein Albumin LDL Cholesterol Direct HDL Cholesterol Urine WBC (Auto) Crossmatch 09/28/18 09/28/18 09/29/18 12:11 16:32 00:18 RBC Hgb Hct MCV MCH RDW Lymph % (Auto) Titus % (Auto) Eos % (Auto) Titus # Eos # Seg Neutrophils % Seg Neutrophils # POC ABG pH POC ABG pCO2 POC ABG pO2 Sodium Potassium Chloride BUN Glucose POC Glucose 159 H 118 H Calcium AST ALT Alkaline Phosphatase Total Creatine Kinase 301 H Troponin T 0.294 H* D C-Reactive Protein Total Protein Albumin LDL Cholesterol Direct HDL Cholesterol Urine WBC (Auto) Crossmatch 09/29/18 09/29/18 09/29/18 04:28 11:23 18:58 RBC Hgb Hct MCV MCH RDW Lymph % (Auto) Titus % (Auto) Eos % (Auto) Titus # Eos # Seg Neutrophils % Seg Neutrophils # POC ABG pH POC ABG pCO2 POC ABG pO2 Sodium Potassium Chloride BUN Glucose POC Glucose 67 L 126 H 167 H Calcium AST ALT Alkaline Phosphatase Total Creatine Kinase Troponin T C-Reactive Protein Total Protein Albumin LDL Cholesterol Direct HDL Cholesterol Urine WBC (Auto) Crossmatch 09/29/18 09/29/18 09/30/18 20:51 23:41 04:56 RBC Hgb Hct MCV MCH RDW Lymph % (Auto) Titus % (Auto) Eos % (Auto) Titus # Eos # Seg Neutrophils % Seg Neutrophils # POC ABG pH POC ABG pCO2 POC ABG pO2 Sodium Potassium Chloride BUN Glucose POC Glucose 182 H 170 H 133 H Calcium AST ALT Alkaline Phosphatase Total Creatine Kinase Troponin T C-Reactive Protein Total Protein Albumin LDL Cholesterol Direct HDL Cholesterol Urine WBC (Auto) Crossmatch 09/30/18 09/30/18 09/30/18 12:37 16:25 20:35 RBC Hgb Hct MCV MCH RDW Lymph % (Auto) Titus % (Auto) Eos % (Auto) Titus # Eos # Seg Neutrophils % Seg Neutrophils # POC ABG pH POC ABG pCO2 POC ABG pO2 Sodium Potassium Chloride BUN Glucose POC Glucose 182 H 185 H 227 H Calcium AST ALT Alkaline Phosphatase Total Creatine Kinase Troponin T C-Reactive Protein Total Protein Albumin LDL Cholesterol Direct HDL Cholesterol Urine WBC (Auto) Crossmatch 09/30/18 10/01/18 10/01/18 23:56 04:05 13:22 RBC Hgb Hct MCV MCH RDW Lymph % (Auto) Titus % (Auto) Eos % (Auto) Titus # Eos # Seg Neutrophils % Seg Neutrophils # POC ABG pH POC ABG pCO2 POC ABG pO2 Sodium Potassium Chloride BUN Glucose POC Glucose 226 H 182 H 122 H Calcium AST ALT Alkaline Phosphatase Total Creatine Kinase Troponin T C-Reactive Protein Total Protein Albumin LDL Cholesterol Direct HDL Cholesterol Urine WBC (Auto) Crossmatch 10/01/18 10/01/18 10/01/18 17:58 18:49 23:42 RBC Hgb Hct MCV MCH RDW Lymph % (Auto) Titus % (Auto) Eos % (Auto) Titus # Eos # Seg Neutrophils % Seg Neutrophils # POC ABG pH POC ABG pCO2 POC ABG pO2 Sodium Potassium Chloride BUN Glucose POC Glucose 62 L 140 H 172 H Calcium AST ALT Alkaline Phosphatase Total Creatine Kinase Troponin T C-Reactive Protein Total Protein Albumin LDL Cholesterol Direct HDL Cholesterol Urine WBC (Auto) Crossmatch 10/02/18 10/02/18 10/02/18 06:25 08:45 08:45 RBC 2.65 L Hgb 7.0 L Hct 21.2 L MCV 80 L MCH 26 L RDW 21.0 H Lymph % (Auto) Titus % (Auto) 9.7 H Eos % (Auto) Titus # 1.0 H Eos # Seg Neutrophils % 71.9 H Seg Neutrophils # POC ABG pH POC ABG pCO2 POC ABG pO2 Sodium Potassium Chloride BUN 29 H Glucose 229 H POC Glucose 226 H Calcium 7.9 L AST ALT Alkaline Phosphatase Total Creatine Kinase Troponin T C-Reactive Protein Total Protein Albumin LDL Cholesterol Direct HDL Cholesterol Urine WBC (Auto) Crossmatch 10/02/18 10/02/18 10/02/18 12:06 17:42 21:02 RBC Hgb Hct MCV MCH RDW Lymph % (Auto) Titus % (Auto) Eos % (Auto) Titus # Eos # Seg Neutrophils % Seg Neutrophils # POC ABG pH POC ABG pCO2 POC ABG pO2 Sodium Potassium Chloride BUN Glucose POC Glucose 217 H 216 H 116 H Calcium AST ALT Alkaline Phosphatase Total Creatine Kinase Troponin T C-Reactive Protein Total Protein Albumin LDL Cholesterol Direct HDL Cholesterol Urine WBC (Auto) Crossmatch 10/03/18 10/03/18 10/03/18 00:29 00:49 04:37 RBC 2.87 L Hgb 7.6 L Hct 23.0 L MCV 80 L MCH 26 L RDW 20.5 H Lymph % (Auto) 11.6 L Titus % (Auto) 7.5 H Eos % (Auto) Titus # Eos # Seg Neutrophils % 78.0 H Seg Neutrophils # 8.4 H POC ABG pH 7.525 H POC ABG pCO2 < 30 L POC ABG pO2 63 L Sodium Potassium Chloride BUN Glucose POC Glucose 117 H Calcium AST ALT Alkaline Phosphatase Total Creatine Kinase Troponin T C-Reactive Protein Total Protein Albumin LDL Cholesterol Direct HDL Cholesterol Urine WBC (Auto) Crossmatch 10/03/18 10/03/18 10/03/18 05:49 12:20 15:26 RBC Hgb Hct MCV MCH RDW Lymph % (Auto) Titus % (Auto) Eos % (Auto) Titus # Eos # Seg Neutrophils % Seg Neutrophils # POC ABG pH POC ABG pCO2 POC ABG pO2 Sodium Potassium Chloride BUN Glucose POC Glucose 218 H 238 H Calcium AST ALT Alkaline Phosphatase Total Creatine Kinase Troponin T C-Reactive Protein 14.70 H Total Protein Albumin LDL Cholesterol Direct HDL Cholesterol Urine WBC (Auto) Crossmatch 10/03/18 10/03/18 10/04/18 16:35 21:13 00:26 RBC Hgb Hct MCV MCH RDW Lymph % (Auto) Titus % (Auto) Eos % (Auto) Titus # Eos # Seg Neutrophils % Seg Neutrophils # POC ABG pH POC ABG pCO2 POC ABG pO2 Sodium Potassium Chloride BUN Glucose POC Glucose 219 H 158 H 181 H Calcium AST ALT Alkaline Phosphatase Total Creatine Kinase Troponin T C-Reactive Protein Total Protein Albumin LDL Cholesterol Direct HDL Cholesterol Urine WBC (Auto) Crossmatch 10/04/18 10/04/18 10/04/18 05:33 12:10 15:58 RBC Hgb Hct MCV MCH RDW Lymph % (Auto) Titus % (Auto) Eos % (Auto) Titus # Eos # Seg Neutrophils % Seg Neutrophils # POC ABG pH POC ABG pCO2 POC ABG pO2 Sodium Potassium Chloride BUN Glucose POC Glucose 209 H 270 H 266 H Calcium AST ALT Alkaline Phosphatase Total Creatine Kinase Troponin T C-Reactive Protein Total Protein Albumin LDL Cholesterol Direct HDL Cholesterol Urine WBC (Auto) Crossmatch 10/05/18 10/05/18 10/05/18 06:18 11:52 17:17 RBC Hgb Hct MCV MCH RDW Lymph % (Auto) Titus % (Auto) Eos % (Auto) Titus # Eos # Seg Neutrophils % Seg Neutrophils # POC ABG pH POC ABG pCO2 POC ABG pO2 Sodium Potassium Chloride BUN Glucose POC Glucose 107 H 218 H 183 H Calcium AST ALT Alkaline Phosphatase Total Creatine Kinase Troponin T C-Reactive Protein Total Protein Albumin LDL Cholesterol Direct HDL Cholesterol Urine WBC (Auto) Crossmatch 10/06/18 10/06/18 10/06/18 00:11 06:01 06:01 RBC 2.46 L Hgb 6.4 L Hct 19.8 L* MCV 80 L MCH 26 L RDW 21.7 H Lymph % (Auto) Titus % (Auto) 10.4 H Eos % (Auto) Titus # 1.1 H Eos # 0.5 H Seg Neutrophils % Seg Neutrophils # POC ABG pH POC ABG pCO2 POC ABG pO2 Sodium 147 H Potassium 3.2 L Chloride 107.7 H BUN 37 H Glucose 153 H POC Glucose 205 H Calcium 7.8 L AST 52 H ALT Alkaline Phosphatase 153 H Total Creatine Kinase Troponin T C-Reactive Protein Total Protein 5.9 L Albumin 1.8 L LDL Cholesterol Direct HDL Cholesterol Urine WBC (Auto) Crossmatch 10/06/18 10/06/18 10/06/18 06:10 08:28 09:48 RBC Hgb Hct MCV MCH RDW Lymph % (Auto) Titus % (Auto) Eos % (Auto) Titus # Eos # Seg Neutrophils % Seg Neutrophils # POC ABG pH POC ABG pCO2 POC ABG pO2 Sodium Potassium Chloride BUN Glucose POC Glucose 171 H 185 H Calcium AST ALT Alkaline Phosphatase Total Creatine Kinase Troponin T C-Reactive Protein Total Protein Albumin LDL Cholesterol Direct HDL Cholesterol Urine WBC (Auto) Crossmatch See Detail 10/06/18 10/06/18 10/07/18 12:31 17:50 00:00 RBC Hgb Hct MCV MCH RDW Lymph % (Auto) Titus % (Auto) Eos % (Auto) Titus # Eos # Seg Neutrophils % Seg Neutrophils # POC ABG pH POC ABG pCO2 POC ABG pO2 Sodium Potassium Chloride BUN Glucose POC Glucose 131 H 244 H 261 H Calcium AST ALT Alkaline Phosphatase Total Creatine Kinase Troponin T C-Reactive Protein Total Protein Albumin LDL Cholesterol Direct HDL Cholesterol Urine WBC (Auto) Crossmatch 10/07/18 10/07/18 10/07/18 05:21 05:21 09:31 RBC 2.99 L Hgb 8.1 L Hct 24.8 L MCV 83 L MCH 27 L RDW 21.9 H Lymph % (Auto) Titus % (Auto) 10.5 H Eos % (Auto) 4.7 H Titus # 1.0 H Eos # Seg Neutrophils % Seg Neutrophils # POC ABG pH POC ABG pCO2 POC ABG pO2 Sodium 146 H Potassium 3.0 L Chloride 107.6 H BUN 39 H Glucose 191 H POC Glucose 200 H Calcium 8.3 L AST 45 H ALT Alkaline Phosphatase 149 H Total Creatine Kinase Troponin T C-Reactive Protein Total Protein Albumin 1.7 L LDL Cholesterol Direct HDL Cholesterol Urine WBC (Auto) Crossmatch 10/07/18 10/07/18 10/08/18 11:45 17:45 00:55 RBC Hgb Hct MCV MCH RDW Lymph % (Auto) Titus % (Auto) Eos % (Auto) Titus # Eos # Seg Neutrophils % Seg Neutrophils # POC ABG pH POC ABG pCO2 POC ABG pO2 Sodium Potassium Chloride BUN Glucose POC Glucose 236 H 269 H 226 H Calcium AST ALT Alkaline Phosphatase Total Creatine Kinase Troponin T C-Reactive Protein Total Protein Albumin LDL Cholesterol Direct HDL Cholesterol Urine WBC (Auto) Crossmatch 10/08/18 10/08/18 10/08/18 04:00 04:00 05:37 RBC 2.75 L Hgb 7.6 L Hct 22.5 L MCV 82 L MCH RDW 22.2 H Lymph % (Auto) Titus % (Auto) 12.7 H Eos % (Auto) 9.6 H Titus # 1.0 H Eos # 0.8 H Seg Neutrophils % Seg Neutrophils # POC ABG pH POC ABG pCO2 POC ABG pO2 Sodium 146 H Potassium Chloride 110.0 H BUN 42 H Glucose 209 H POC Glucose 243 H Calcium 7.5 L AST ALT Alkaline Phosphatase 138 H Total Creatine Kinase Troponin T C-Reactive Protein Total Protein 5.8 L Albumin 1.8 L LDL Cholesterol Direct HDL Cholesterol Urine WBC (Auto) Crossmatch 10/08/18 10/08/18 10/09/18 11:42 17:46 00:28 RBC Hgb Hct MCV MCH RDW Lymph % (Auto) Titus % (Auto) Eos % (Auto) Titus # Eos # Seg Neutrophils % Seg Neutrophils # POC ABG pH POC ABG pCO2 POC ABG pO2 Sodium Potassium Chloride BUN Glucose POC Glucose 191 H 199 H 191 H Calcium AST ALT Alkaline Phosphatase Total Creatine Kinase Troponin T C-Reactive Protein Total Protein Albumin LDL Cholesterol Direct HDL Cholesterol Urine WBC (Auto) Crossmatch 10/09/18 10/09/18 10/09/18 05:59 11:28 18:16 RBC Hgb Hct MCV MCH RDW Lymph % (Auto) Titus % (Auto) Eos % (Auto) Titus # Eos # Seg Neutrophils % Seg Neutrophils # POC ABG pH POC ABG pCO2 POC ABG pO2 Sodium Potassium Chloride BUN Glucose POC Glucose 136 H 137 H 108 H Calcium AST ALT Alkaline Phosphatase Total Creatine Kinase Troponin T C-Reactive Protein Total Protein Albumin LDL Cholesterol Direct HDL Cholesterol Urine WBC (Auto) Crossmatch 10/09/18 10/10/18 10/10/18 23:44 06:39 11:36 RBC Hgb Hct MCV MCH RDW Lymph % (Auto) Titus % (Auto) Eos % (Auto) Titus # Eos # Seg Neutrophils % Seg Neutrophils # POC ABG pH POC ABG pCO2 POC ABG pO2 Sodium Potassium Chloride BUN Glucose POC Glucose 197 H 215 H 189 H Calcium AST ALT Alkaline Phosphatase Total Creatine Kinase Troponin T C-Reactive Protein Total Protein Albumin LDL Cholesterol Direct HDL Cholesterol Urine WBC (Auto) Crossmatch 10/10/18 10/11/18 10/11/18 18:08 00:36 06:06 RBC Hgb Hct MCV MCH RDW Lymph % (Auto) Titus % (Auto) Eos % (Auto) Titus # Eos # Seg Neutrophils % Seg Neutrophils # POC ABG pH POC ABG pCO2 POC ABG pO2 Sodium Potassium Chloride BUN Glucose POC Glucose 176 H 166 H 181 H Calcium AST ALT Alkaline Phosphatase Total Creatine Kinase Troponin T C-Reactive Protein Total Protein Albumin LDL Cholesterol Direct HDL Cholesterol Urine WBC (Auto) Crossmatch 10/11/18 11:39 RBC Hgb Hct MCV MCH RDW Lymph % (Auto) Titus % (Auto) Eos % (Auto) Titus # Eos # Seg Neutrophils % Seg Neutrophils # POC ABG pH POC ABG pCO2 POC ABG pO2 Sodium Potassium Chloride BUN Glucose POC Glucose 229 H Calcium AST ALT Alkaline Phosphatase Total Creatine Kinase Troponin T C-Reactive Protein Total Protein Albumin LDL Cholesterol Direct HDL Cholesterol Urine WBC (Auto) Crossmatch Allied health notes reviewed: nursing
[2018-10-11] MEDS: LANTUS SUB-Q SCH (22:59)
[2018-10-12] MEDS: HumuLIN R SUB-Q SCH ×4 (00:42→18:38)
[2018-10-12] MEDS: DUONEB *Not for PRN Use IH SCH ×3 (01:45→14:48)
[2018-10-12] MEDS: CARAFATE FEEDTUBE SCH ×2 (04:57→12:33)
[2018-10-12] MEDS: ROBINUL FEEDTUBE SCH ×2 (04:59→14:11)
[2018-10-12] MEDS: ZESTRIL FEEDTUBE SCH (09:52)
[2018-10-12] MEDS: BABY ASPIRIN FEEDTUBE SCH (09:52)
[2018-10-12] MEDS: LASIX PO SCH (09:52)
[2018-10-12] MEDS: VITAMIN C FEEDTUBE SCH (09:52)
[2018-10-12] MEDS: PEPCID PO SCH (09:52)
[2018-10-12] MEDS: FLOMAX PO SCH (09:52)
[2018-10-12] MEDS: VIMPAT PO SCH (09:52)
[2018-10-12] MEDS: NORVASC FEEDTUBE SCH (09:53)
[2018-10-12] MEDS: FERROUS SULFATE FEEDTUBE SCH (09:53)
[2018-10-12] MEDS: SYMMETREL FEEDTUBE SCH (09:53)
[2018-10-12] MEDS: AUGMENTIN ORAL LIQD PO SCH (09:54)
[2018-10-12] MEDS: HEPARIN SUB-Q SCH (09:55)
--- NOTE | 2018-10-12 14:56 | Progress Note ---
Assessment and Plan Patient is resting on T-tube FIO2 of 28%. Oxygen saturation of 100%. Patient is not responding to verbal stimuli. No acute respiratory distress at rest. Patient afebrile. No leukocytosis. Patients condition unchanged. - Patient Problems (1) HCAP (healthcare-associated pneumonia) Current Visit: Yes Status: Acute Plan to address problem: Patient is on Augmentin. Continue FIO2 of 28% on T-tube. (2) Acute and chronic respiratory failure Current Visit: No Status: Acute Qualifiers: Respiratory failure complication: hypoxia Qualified Code(s): J96.21 - Acute and chronic respiratory failure with hypoxia Plan to address problem: S/P tracheostomy. T-tube FIO2 of 28%. Albuterol aerosol treatment q 6 hours Continue S/C heparin. Continue famotidine Patient is on Augmentin. (3) History of tracheostomy Current Visit: Yes Status: Chronic Plan to address problem: Tracheostomy care by respiratory therapy. Subjective Date of service: 10/12/18 Principal diagnosis: Ac on ch hypoxemic resp failure; HAP; Urinary tract infection; DM II Interval history: Patient is resting on T-tube FIO2 of 28%. Oxygen saturation of 100%. Patient is not responding to verbal stimuli. No acute respiratory distress at rest. Patient afebrile. No leukocytosis. Patients condition unchanged. Objective Vital Signs - 12hr 10/12/18 10/12/18 10/12/18 07:42 08:00 08:13 Temperature 98.6 F Pulse Rate 74 Pulse Rate [ 98 H Anterior Bilateral Throughout] Pulse Rate [ Right Radial] Respiratory 22 Rate Respiratory 18 Rate [Anterior Bilateral Throughout] Blood Pressure 135/69 O2 Sat by Pulse 100 100 Oximetry 10/12/18 10/12/18 10/12/18 09:52 09:53 10:00 Temperature Pulse Rate 98 H 98 H Pulse Rate [ Anterior Bilateral Throughout] Pulse Rate [ 98 H Right Radial] Respiratory 18 Rate Respiratory Rate [Anterior Bilateral Throughout] Blood Pressure 135/69 135/69 O2 Sat by Pulse 100 Oximetry Constitutional: no acute distress, asleep Eyes: non-icteric ENT: oropharynx moist Neck: supple, no lymphadenopathy, no JVD, other (midline tracheostomy tube) Effort: mildly labored Ascultation: Bilateral: diminished breath sounds, rhonchi Percussion: Bilateral: not dull Cardiovascular: regular rate and rhythm Gastrointestinal: normoactive bowel sounds, soft, non-tender, non-distended Integumentary: rash Extremities: no cyanosis, pulses normal, no ischemia or petechiae, edema (trace now) Neurologic: unable to assess Psychiatric: other (encephalopathic) CBC and BMP: 10/08/18 04:00 10/08/18 04:00 ABG, PT/INR, D-dimer: ABG POC ABG pH 7.525 (7.35-7.45) H 10/03/18 04:37 POC ABG pCO2 < 30 (35-45) L 10/03/18 04:37 POC ABG pO2 63 (80-105) L 10/03/18 04:37 POC ABG HCO3 23.4 (22-26 mml/L) 10/03/18 04:37 POC ABG Total CO2 24 (23-27mmol/L) 10/03/18 04:37 POC ABG O2 Sat 94 10/03/18 04:37 Abnormal lab findings: Abnormal Labs 09/27/18 09/27/18 09/27/18 22:54 23:00 23:00 RBC 2.71 L Hgb 7.4 L Hct 22.0 L MCV 81 L MCH 27 L RDW 21.4 H Lymph % (Auto) [place] % (Auto) 13.8 H Eos % (Auto) [place] # 1.3 H Eos # Seg Neutrophils % Seg Neutrophils # POC ABG pH POC ABG pCO2 POC ABG pO2 Sodium Potassium Chloride BUN 40 H Glucose 431 H POC Glucose 456 H Calcium AST 78 H ALT 107 H Alkaline Phosphatase 178 H Total Creatine Kinase Troponin T 0.407 H* C-Reactive Protein Total Protein Albumin 1.9 L LDL Cholesterol Direct 25 L HDL Cholesterol 19 L Urine WBC (Auto) Crossmatch 09/27/18 09/28/18 09/28/18 23:34 01:05 02:43 RBC Hgb Hct MCV MCH RDW Lymph % (Auto) [place] % (Auto) Eos % (Auto) [place] # Eos # Seg Neutrophils % Seg Neutrophils # POC ABG pH 7.525 H POC ABG pCO2 33.1 L POC ABG pO2 Sodium Potassium Chloride BUN Glucose POC Glucose 497 H Calcium AST ALT Alkaline Phosphatase Total Creatine Kinase Troponin T C-Reactive Protein Total Protein Albumin LDL Cholesterol Direct HDL Cholesterol Urine WBC (Auto) 63.0 H Crossmatch 09/28/18 09/28/18 09/28/18 04:11 07:13 11:47 RBC Hgb Hct MCV MCH RDW Lymph % (Auto) [place] % (Auto) Eos % (Auto) [place] # Eos # Seg Neutrophils % Seg Neutrophils # POC ABG pH POC ABG pCO2 POC ABG pO2 Sodium Potassium Chloride BUN Glucose POC Glucose 362 H 392 H 244 H Calcium AST ALT Alkaline Phosphatase Total Creatine Kinase Troponin T C-Reactive Protein Total Protein Albumin LDL Cholesterol Direct HDL Cholesterol Urine WBC (Auto) Crossmatch 09/28/18 09/28/18 09/29/18 12:11 16:32 00:18 RBC Hgb Hct MCV MCH RDW Lymph % (Auto) [place] % (Auto) Eos % (Auto) [place] # Eos # Seg Neutrophils % Seg Neutrophils # POC ABG pH POC ABG pCO2 POC ABG pO2 Sodium Potassium Chloride BUN Glucose POC Glucose 159 H 118 H Calcium AST ALT Alkaline Phosphatase Total Creatine Kinase 301 H Troponin T 0.294 H* D C-Reactive Protein Total Protein Albumin LDL Cholesterol Direct HDL Cholesterol Urine WBC (Auto) Crossmatch 09/29/18 09/29/18 09/29/18 04:28 11:23 18:58 RBC Hgb Hct MCV MCH RDW Lymph % (Auto) [place] % (Auto) Eos % (Auto) [place] # Eos # Seg Neutrophils % Seg Neutrophils # POC ABG pH POC ABG pCO2 POC ABG pO2 Sodium Potassium Chloride BUN Glucose POC Glucose 67 L 126 H 167 H Calcium AST ALT Alkaline Phosphatase Total Creatine Kinase Troponin T C-Reactive Protein Total Protein Albumin LDL Cholesterol Direct HDL Cholesterol Urine WBC (Auto) Crossmatch 09/29/18 09/29/18 09/30/18 20:51 23:41 04:56 RBC Hgb Hct MCV MCH RDW Lymph % (Auto) [place] % (Auto) Eos % (Auto) [place] # Eos # Seg Neutrophils % Seg Neutrophils # POC ABG pH POC ABG pCO2 POC ABG pO2 Sodium Potassium Chloride BUN Glucose POC Glucose 182 H 170 H 133 H Calcium AST ALT Alkaline Phosphatase Total Creatine Kinase Troponin T C-Reactive Protein Total Protein Albumin LDL Cholesterol Direct HDL Cholesterol Urine WBC (Auto) Crossmatch 09/30/18 09/30/18 09/30/18 12:37 16:25 20:35 RBC Hgb Hct MCV MCH RDW Lymph % (Auto) [place] % (Auto) Eos % (Auto) [place] # Eos # Seg Neutrophils % Seg Neutrophils # POC ABG pH POC ABG pCO2 POC ABG pO2 Sodium Potassium Chloride BUN Glucose POC Glucose 182 H 185 H 227 H Calcium AST ALT Alkaline Phosphatase Total Creatine Kinase Troponin T C-Reactive Protein Total Protein Albumin LDL Cholesterol Direct HDL Cholesterol Urine WBC (Auto) Crossmatch 09/30/18 10/01/18 10/01/18 23:56 04:05 13:22 RBC Hgb Hct MCV MCH RDW Lymph % (Auto) [place] % (Auto) Eos % (Auto) [place] # Eos # Seg Neutrophils % Seg Neutrophils # POC ABG pH POC ABG pCO2 POC ABG pO2 Sodium Potassium Chloride BUN Glucose POC Glucose 226 H 182 H 122 H Calcium AST ALT Alkaline Phosphatase Total Creatine Kinase Troponin T C-Reactive Protein Total Protein Albumin LDL Cholesterol Direct HDL Cholesterol Urine WBC (Auto) Crossmatch 10/01/18 10/01/18 10/01/18 17:58 18:49 23:42 RBC Hgb Hct MCV MCH RDW Lymph % (Auto) [place] % (Auto) Eos % (Auto) [place] # Eos # Seg Neutrophils % Seg Neutrophils # POC ABG pH POC ABG pCO2 POC ABG pO2 Sodium Potassium Chloride BUN Glucose POC Glucose 62 L 140 H 172 H Calcium AST ALT Alkaline Phosphatase Total Creatine Kinase Troponin T C-Reactive Protein Total Protein Albumin LDL Cholesterol Direct HDL Cholesterol Urine WBC (Auto) Crossmatch 10/02/18 10/02/18 10/02/18 06:25 08:45 08:45 RBC 2.65 L Hgb 7.0 L Hct 21.2 L MCV 80 L MCH 26 L RDW 21.0 H Lymph % (Auto) [place] % (Auto) 9.7 H Eos % (Auto) [place] # 1.0 H Eos # Seg Neutrophils % 71.9 H Seg Neutrophils # POC ABG pH POC ABG pCO2 POC ABG pO2 Sodium Potassium Chloride BUN 29 H Glucose 229 H POC Glucose 226 H Calcium 7.9 L AST ALT Alkaline Phosphatase Total Creatine Kinase Troponin T C-Reactive Protein Total Protein Albumin LDL Cholesterol Direct HDL Cholesterol Urine WBC (Auto) Crossmatch 10/02/18 10/02/18 10/02/18 12:06 17:42 21:02 RBC Hgb Hct MCV MCH RDW Lymph % (Auto) [place] % (Auto) Eos % (Auto) [place] # Eos # Seg Neutrophils % Seg Neutrophils # POC ABG pH POC ABG pCO2 POC ABG pO2 Sodium Potassium Chloride BUN Glucose POC Glucose 217 H 216 H 116 H Calcium AST ALT Alkaline Phosphatase Total Creatine Kinase Troponin T C-Reactive Protein Total Protein Albumin LDL Cholesterol Direct HDL Cholesterol Urine WBC (Auto) Crossmatch 10/03/18 10/03/18 10/03/18 00:29 00:49 04:37 RBC 2.87 L Hgb 7.6 L Hct 23.0 L MCV 80 L MCH 26 L RDW 20.5 H Lymph % (Auto) 11.6 L [place] % (Auto) 7.5 H Eos % (Auto) [place] # Eos # Seg Neutrophils % 78.0 H Seg Neutrophils # 8.4 H POC ABG pH 7.525 H POC ABG pCO2 < 30 L POC ABG pO2 63 L Sodium Potassium Chloride BUN Glucose POC Glucose 117 H Calcium AST ALT Alkaline Phosphatase Total Creatine Kinase Troponin T C-Reactive Protein Total Protein Albumin LDL Cholesterol Direct HDL Cholesterol Urine WBC (Auto) Crossmatch 10/03/18 10/03/18 10/03/18 05:49 12:20 15:26 RBC Hgb Hct MCV MCH RDW Lymph % (Auto) [place] % (Auto) Eos % (Auto) [place] # Eos # Seg Neutrophils % Seg Neutrophils # POC ABG pH POC ABG pCO2 POC ABG pO2 Sodium Potassium Chloride BUN Glucose POC Glucose 218 H 238 H Calcium AST ALT Alkaline Phosphatase Total Creatine Kinase Troponin T C-Reactive Protein 14.70 H Total Protein Albumin LDL Cholesterol Direct HDL Cholesterol Urine WBC (Auto) Crossmatch 10/03/18 10/03/18 10/04/18 16:35 21:13 00:26 RBC Hgb Hct MCV MCH RDW Lymph % (Auto) [place] % (Auto) Eos % (Auto) [place] # Eos # Seg Neutrophils % Seg Neutrophils # POC ABG pH POC ABG pCO2 POC ABG pO2 Sodium Potassium Chloride BUN Glucose POC Glucose 219 H 158 H 181 H Calcium AST ALT Alkaline Phosphatase Total Creatine Kinase Troponin T C-Reactive Protein Total Protein Albumin LDL Cholesterol Direct HDL Cholesterol Urine WBC (Auto) Crossmatch 10/04/18 10/04/18 10/04/18 05:33 12:10 15:58 RBC Hgb Hct MCV MCH RDW Lymph % (Auto) [place] % (Auto) Eos % (Auto) [place] # Eos # Seg Neutrophils % Seg Neutrophils # POC ABG pH POC ABG pCO2 POC ABG pO2 Sodium Potassium Chloride BUN Glucose POC Glucose 209 H 270 H 266 H Calcium AST ALT Alkaline Phosphatase Total Creatine Kinase Troponin T C-Reactive Protein Total Protein Albumin LDL Cholesterol Direct HDL Cholesterol Urine WBC (Auto) Crossmatch 10/05/18 10/05/18 10/05/18 06:18 11:52 17:17 RBC Hgb Hct MCV MCH RDW Lymph % (Auto) [place] % (Auto) Eos % (Auto) [place] # Eos # Seg Neutrophils % Seg Neutrophils # POC ABG pH POC ABG pCO2 POC ABG pO2 Sodium Potassium Chloride BUN Glucose POC Glucose 107 H 218 H 183 H Calcium AST ALT Alkaline Phosphatase Total Creatine Kinase Troponin T C-Reactive Protein Total Protein Albumin LDL Cholesterol Direct HDL Cholesterol Urine WBC (Auto) Crossmatch 10/06/18 10/06/18 10/06/18 00:11 06:01 06:01 RBC 2.46 L Hgb 6.4 L Hct 19.8 L* MCV 80 L MCH 26 L RDW 21.7 H Lymph % (Auto) [place] % (Auto) 10.4 H Eos % (Auto) [place] # 1.1 H Eos # 0.5 H Seg Neutrophils % Seg Neutrophils # POC ABG pH POC ABG pCO2 POC ABG pO2 Sodium 147 H Potassium 3.2 L Chloride 107.7 H BUN 37 H Glucose 153 H POC Glucose 205 H Calcium 7.8 L AST 52 H ALT Alkaline Phosphatase 153 H Total Creatine Kinase Troponin T C-Reactive Protein Total Protein 5.9 L Albumin 1.8 L LDL Cholesterol Direct HDL Cholesterol Urine WBC (Auto) Crossmatch 10/06/18 10/06/18 10/06/18 06:10 08:28 09:48 RBC Hgb Hct MCV MCH RDW Lymph % (Auto) [place] % (Auto) Eos % (Auto) [place] # Eos # Seg Neutrophils % Seg Neutrophils # POC ABG pH POC ABG pCO2 POC ABG pO2 Sodium Potassium Chloride BUN Glucose POC Glucose 171 H 185 H Calcium AST ALT Alkaline Phosphatase Total Creatine Kinase Troponin T C-Reactive Protein Total Protein Albumin LDL Cholesterol Direct HDL Cholesterol Urine WBC (Auto) Crossmatch See Detail 10/06/18 10/06/18 10/07/18 12:31 17:50 00:00 RBC Hgb Hct MCV MCH RDW Lymph % (Auto) [place] % (Auto) Eos % (Auto) [place] # Eos # Seg Neutrophils % Seg Neutrophils # POC ABG pH POC ABG pCO2 POC ABG pO2 Sodium Potassium Chloride BUN Glucose POC Glucose 131 H 244 H 261 H Calcium AST ALT Alkaline Phosphatase Total Creatine Kinase Troponin T C-Reactive Protein Total Protein Albumin LDL Cholesterol Direct HDL Cholesterol Urine WBC (Auto) Crossmatch 10/07/18 10/07/18 10/07/18 05:21 05:21 09:31 RBC 2.99 L Hgb 8.1 L Hct 24.8 L MCV 83 L MCH 27 L RDW 21.9 H Lymph % (Auto) [place] % (Auto) 10.5 H Eos % (Auto) 4.7 H [place] # 1.0 H Eos # Seg Neutrophils % Seg Neutrophils # POC ABG pH POC ABG pCO2 POC ABG pO2 Sodium 146 H Potassium 3.0 L Chloride 107.6 H BUN 39 H Glucose 191 H POC Glucose 200 H Calcium 8.3 L AST 45 H ALT Alkaline Phosphatase 149 H Total Creatine Kinase Troponin T C-Reactive Protein Total Protein Albumin 1.7 L LDL Cholesterol Direct HDL Cholesterol Urine WBC (Auto) Crossmatch 10/07/18 10/07/18 10/08/18 11:45 17:45 00:55 RBC Hgb Hct MCV MCH RDW Lymph % (Auto) [place] % (Auto) Eos % (Auto) [place] # Eos # Seg Neutrophils % Seg Neutrophils # POC ABG pH POC ABG pCO2 POC ABG pO2 Sodium Potassium Chloride BUN Glucose POC Glucose 236 H 269 H 226 H Calcium AST ALT Alkaline Phosphatase Total Creatine Kinase Troponin T C-Reactive Protein Total Protein Albumin LDL Cholesterol Direct HDL Cholesterol Urine WBC (Auto) Crossmatch 10/08/18 10/08/18 10/08/18 04:00 04:00 05:37 RBC 2.75 L Hgb 7.6 L Hct 22.5 L MCV 82 L MCH RDW 22.2 H Lymph % (Auto) [place] % (Auto) 12.7 H Eos % (Auto) 9.6 H [place] # 1.0 H Eos # 0.8 H Seg Neutrophils % Seg Neutrophils # POC ABG pH POC ABG pCO2 POC ABG pO2 Sodium 146 H Potassium Chloride 110.0 H BUN 42 H Glucose 209 H POC Glucose 243 H Calcium 7.5 L AST ALT Alkaline Phosphatase 138 H Total Creatine Kinase Troponin T C-Reactive Protein Total Protein 5.8 L Albumin 1.8 L LDL Cholesterol Direct HDL Cholesterol Urine WBC (Auto) Crossmatch 10/08/18 10/08/18 10/09/18 11:42 17:46 00:28 RBC Hgb Hct MCV MCH RDW Lymph % (Auto) [place] % (Auto) Eos % (Auto) [place] # Eos # Seg Neutrophils % Seg Neutrophils # POC ABG pH POC ABG pCO2 POC ABG pO2 Sodium Potassium Chloride BUN Glucose POC Glucose 191 H 199 H 191 H Calcium AST ALT Alkaline Phosphatase Total Creatine Kinase Troponin T C-Reactive Protein Total Protein Albumin LDL Cholesterol Direct HDL Cholesterol Urine WBC (Auto) Crossmatch 10/09/18 10/09/18 10/09/18 05:59 11:28 18:16 RBC Hgb Hct MCV MCH RDW Lymph % (Auto) [place] % (Auto) Eos % (Auto) [place] # Eos # Seg Neutrophils % Seg Neutrophils # POC ABG pH POC ABG pCO2 POC ABG pO2 Sodium Potassium Chloride BUN Glucose POC Glucose 136 H 137 H 108 H Calcium AST ALT Alkaline Phosphatase Total Creatine Kinase Troponin T C-Reactive Protein Total Protein Albumin LDL Cholesterol Direct HDL Cholesterol Urine WBC (Auto) Crossmatch 10/09/18 10/10/18 10/10/18 23:44 06:39 11:36 RBC Hgb Hct MCV MCH RDW Lymph % (Auto) [place] % (Auto) Eos % (Auto) [place] # Eos # Seg Neutrophils % Seg Neutrophils # POC ABG pH POC ABG pCO2 POC ABG pO2 Sodium Potassium Chloride BUN Glucose POC Glucose 197 H 215 H 189 H Calcium AST ALT Alkaline Phosphatase Total Creatine Kinase Troponin T C-Reactive Protein Total Protein Albumin LDL Cholesterol Direct HDL Cholesterol Urine WBC (Auto) Crossmatch 10/10/18 10/11/18 10/11/18 18:08 00:36 06:06 RBC Hgb Hct MCV MCH RDW Lymph % (Auto) [place] % (Auto) Eos % (Auto) [place] # Eos # Seg Neutrophils % Seg Neutrophils # POC ABG pH POC ABG pCO2 POC ABG pO2 Sodium Potassium Chloride BUN Glucose POC Glucose 176 H 166 H 181 H Calcium AST ALT Alkaline Phosphatase Total Creatine Kinase Troponin T C-Reactive Protein Total Protein Albumin LDL Cholesterol Direct HDL Cholesterol Urine WBC (Auto) Crossmatch 10/11/18 10/11/18 10/12/18 11:39 17:41 00:42 RBC Hgb Hct MCV MCH RDW Lymph % (Auto) [place] % (Auto) Eos % (Auto) [place] # Eos # Seg Neutrophils % Seg Neutrophils # POC ABG pH POC ABG pCO2 POC ABG pO2 Sodium Potassium Chloride BUN Glucose POC Glucose 229 H 201 H 226 H Calcium AST ALT Alkaline Phosphatase Total Creatine Kinase Troponin T C-Reactive Protein Total Protein Albumin LDL Cholesterol Direct HDL Cholesterol Urine WBC (Auto) Crossmatch 10/12/18 10/12/18 06:47 11:56 RBC Hgb Hct MCV MCH RDW Lymph % (Auto) [place] % (Auto) Eos % (Auto) [place] # Eos # Seg Neutrophils % Seg Neutrophils # POC ABG pH POC ABG pCO2 POC ABG pO2 Sodium Potassium Chloride BUN Glucose POC Glucose 208 H 180 H Calcium AST ALT Alkaline Phosphatase Total Creatine Kinase Troponin T C-Reactive Protein Total Protein Albumin LDL Cholesterol Direct HDL Cholesterol Urine WBC (Auto) Crossmatch Allied health notes reviewed: nursing
--- NOTE | 2018-10-12 17:02 | Progress Note ---
Assessment and Plan Assessment and plan: Mr. casillas is a 77-year-old male with recent prolonged hospitalization due to cardiac arrest. Previous history of CVA,. Recently discharged 10 days ago from our hospital with poor prognosis. Patient was comatose up on discharge with hypoxic encephalopathy,. According to neurology consult poor prognosis, poor left ventricular recovery. Preserved brainstem function but otherwise unresponsive. EEG suggestive of hypoxic encephalopathy. He returns from [facility] today For severe hyperglycemia. Treated with subcutaneous insulin at the facility. Noted to have 102.5 rectal temperature. He is currently nonverbal. He does not follow commands. Patient has aspiration pneumonia on antibiotics, persistent fevers, ID following, full CODE STATUS 09/27/2018 blood culture: No growth 09/28/2018 urine culture: Yeast: Non-albicans [place] 09/28/2018 MRSA nasal culture: Negative 10/04/2018 tracheal aspirate: Oropharyngeal contamination 10/06/2018 blood culture: no growth to date 10/06/2018 Urine: Yeast: non-albicans Lea --Spesis -Resolved. Febrile illness; No new fever Discussed extensively with the patients spouse and she understands that the patient is high risk for readmissions. Treated with and will complete abx per ID ID following --Aspiration pneumonia; patient is on cefepime and vancomycin will change to Augmentin till 10/13/18. Status post Levaquin, aspiration precautions, PEG feeds, Supportive care, follow-up chest x-ray tomorrow, pulmonary consult Elevate the head end of the bed --Chronic respiratory failure; h/o tracheostomy on T piece Continue oxygen nebulizers supportive care Chest x-ray, patient has copious secretions continue aggressive pulmonary to ilet. family also advised of the improtance of this --Anemia; hemoglobin 7.6 post transfusion and stable, No evidence of bleeding --Generalized edema and fluid overload; Monitor input output --Type 2 diabetes mellitus uncontrolled /Hyperglycemia blood sugars are well controlled, continue Accu-Chek sliding scale coverage and tube feeding ,long acting insulin --Toxic metabolic encephalopathy; present on admission Multifactorial, neuro checks and supportive care --History of cardiac arrest in the past; anoxic encephalopathy Supportive care --UTI treated with empiric antibiotics, and cultures positive for Yeast. Start Diflucan for total 10 days to complete 10/16/18 --Elevated troponins; probably nonspecific. No clear evidence of increased oxygen demand --DVT prophylaxis; Lovenox Full CODE STATUS Discharge planning; DC and transfer back to SNF when pre-cert completed by insurance company Plan of care is reviewed with the patient's and his nurse History Interval history: Patient seen and examined, remains in encephalopathic state, but stable, family at bedside. No new complaints. pending prior authorization Hospitalist Physical - Physical exam Narrative exam: General: chroniclly ill appearing, unresponsive, Eyes: Present: PERRL, EOM intact, - Neck Neck: Present: supple, normal ROM - Respiratory Respiratory effort: normal Respiratory: bilateral: diminished, rhonchi, negative: rales, wheezing. Trach inplace. - Cardiovascular Rhythm: regular Heart Sounds: Present: S1 & S2 - Extremities Extremities: no ischemia Extremity abnormal: edema - Abdominal General gastrointestinal: soft, non-tender, non-distended, normal bowel sounds - Integumentary Integumentary: Present: multiple decub/sacarl pressure ulcers, contracted - Psychiatric Psychiatric: other (noncommunicative) - Neurologic Neurologic: other (unresponsive) - Constitutional Vitals: Temp Pulse Resp BP Pulse Ox 98.6 F 94 H 20 135/69 100 10/12/18 07:42 10/12/18 14:00 10/12/18 14:00 10/12/18 09:53 10/12/18 10:00 General appearance: Present: no acute distress, well-nourished, obese, other (tracheostomy on T piece) Results - Labs CBC & Chem 7: 10/08/18 04:00 10/08/18 04:00 Labs: Laboratory Last Values WBC 8.2 K/mm3 (4.5-11.0) 10/08/18 04:00 RBC 2.75 M/mm3 (3.65-5.03) L 10/08/18 04:00 Hgb 7.6 gm/dl (11.8-15.2) L 10/08/18 04:00 Hct 22.5 % (35.5-45.6) L 10/08/18 04:00 MCV 82 fl (84-94) L 10/08/18 04:00 MCH 28 pg (28-32) 10/08/18 04:00 MCHC 34 % (32-34) 10/08/18 04:00 RDW 22.2 % (13.2-15.2) H 10/08/18 04:00 Plt Count 326 K/mm3 (140-440) 10/08/18 04:00 Lymph % (Auto) 17.0 % (13.4-35.0) 10/08/18 04:00 [place] % (Auto) 12.7 % (0.0-7.3) H 10/08/18 04:00 Eos % (Auto) 9.6 % (0.0-4.3) H 10/08/18 04:00 Baso % (Auto) 1.3 % (0.0-1.8) 10/08/18 04:00 Lymph # 1.4 K/mm3 (1.2-5.4) 10/08/18 04:00 [place] # 1.0 K/mm3 (0.0-0.8) H 10/08/18 04:00 Eos # 0.8 K/mm3 (0.0-0.4) H 10/08/18 04:00 Baso # 0.1 K/mm3 (0.0-0.1) 10/08/18 04:00 Seg Neutrophils % 59.4 % (40.0-70.0) 10/08/18 04:00 Seg Neutrophils # 4.9 K/mm3 (1.8-7.7) 10/08/18 04:00 POC ABG pH 7.525 (7.35-7.45) H 10/03/18 04:37 POC ABG pCO2 < 30 (35-45) L 10/03/18 04:37 POC ABG pO2 63 (80-105) L 10/03/18 04:37 POC ABG HCO3 23.4 (22-26 mml/L) 10/03/18 04:37 POC ABG Total CO2 24 (23-27mmol/L) 10/03/18 04:37 POC ABG O2 Sat 94 10/03/18 04:37 POC ABG Base Excess 1 ((-2) - (+3)mmol/L) 10/03/18 04:37 40 % 10/03/18 04:37 Sodium 146 mmol/L (137-145) H 10/08/18 04:00 Potassium 3.8 mmol/L (3.6-5.0) D 10/08/18 04:00 Chloride 110.0 mmol/L (98-107) H 10/08/18 04:00 Carbon Dioxide 27 mmol/L (22-30) 10/08/18 04:00 13 mmol/L 10/08/18 04:00 BUN 42 mg/dL (9-20) H 10/08/18 04:00 1.5 mg/dL (0.8-1.5) 10/08/18 04:00 Estimated GFR 55 ml/min 10/08/18 04:00 28 % 10/08/18 04:00 Glucose 209 mg/dL (75-100) H 10/08/18 04:00 POC Glucose 180 (70-105) H 10/12/18 11:56 Lactic Acid 1.20 mmol/L (0.7-2.0) 10/03/18 15:26 Calcium 7.5 mg/dL (8.4-10.2) L 10/08/18 04:00 Phosphorus 3.40 mg/dL (2.5-4.5) 10/02/18 08:45 Magnesium 2.10 mg/dL (1.7-2.3) 10/08/18 04:00 0.20 mg/dL (0.1-1.2) 10/08/18 04:00 AST 38 units/L (5-40) 10/08/18 04:00 ALT 45 units/L (7-56) 10/08/18 04:00 138 units/L (35-129) H 10/08/18 04:00 301 units/L (55-170) H 09/28/18 12:11 CK-MB (CK-2) 3.1 ng/mL (0.0-4.0) 09/28/18 12:11 CK-MB (CK-2) Rel Index 1.0 (0-4) 09/28/18 12:11 0.294 ng/mL (0.00-0.029) H* D 09/28/18 12:11 14.70 mg/dL (0.00-1.30) H 10/03/18 15:26 5.8 g/dL (6.3-8.2) L 10/08/18 04:00 1.8 g/dL (3.9-5) L 10/08/18 04:00 0.5 % 10/08/18 04:00 Triglycerides 61 mg/dL (2-149) 09/27/18 23:00 Cholesterol 56 mg/dL (50-199) 09/27/18 23:00 25 mg/dL (50-130) L 09/27/18 23:00 19 mg/dL (40-59) L 09/27/18 23:00 2.94 % 09/27/18 23:00 Yellow (Yellow) 09/28/18 01:05 Cloudy (Clear) 09/28/18 01:05 7.0 (5.0-7.0) 09/28/18 01:05 Ur Specific [place] 1.017 (1.003-1.030) 09/28/18 01:05 100 mg/dl mg/dL (Negative) 09/28/18 01:05 150 mg/dL (Negative) 09/28/18 01:05 Neg mg/dL (Negative) 09/28/18 01:05 Sm (Negative) 09/28/18 01:05 Neg (Negative) 09/28/18 01:05 Neg (Negative) 09/28/18 01:05 < 2.0 mg/dL (<2.0) 09/28/18 01:05 Ur Leukocyte Esterase Lg (Negative) 09/28/18 01:05 63.0 /HPF (0.0-6.0) H 09/28/18 01:05 182.0 /HPF (0.0-6.0) 09/28/18 01:05 U Epithel Cells (Auto) < 1.0 /HPF (0-13.0) 09/28/18 01:05 2+ /HPF (Negative) 09/28/18 01:05 Few /HPF 09/28/18 01:05 3+ /HPF 09/28/18 01:05 Random Vancomycin 23.4 ug/mL (0-40.0) 10/03/18 19:57 Blood Type O POSITIVE 10/06/18 09:48 Antibody Screen Negative 10/06/18 09:48 Crossmatch See Detail 10/06/18 09:48 Active Medications - Current Medications Current Medications: Generic Name Dose Route Start Last Admin Trade Name Freq PRN Reason Stop Dose Admin Acetaminophen 650 mg 09/28/18 03:16 10/07/18 18:51 Tylenol MS 650 mg Q4H PRN Administration Fever >101 Albuterol 2.5 mg 10/08/18 11:00 Proventil IH Q3HRT PRN Shortness Of Breath Albuterol/Ipratropium 1 ampul 10/08/18 14:00 10/12/18 14:48 Duoneb *Not For Prn Use* IH 1 ampul Q6HRT LENCHO Administration Amantadine HCl 100 mg 09/28/18 10:00 10/12/18 09:53 Symmetrel FEEDTUBE 100 mg DAILY LENCHO Administration Amlodipine Besylate 5 mg 09/28/18 10:00 10/12/18 09:53 Norvasc FEEDTUBE 5 mg DAILY LENCHO Administration Amoxicillin/Clavulanate Potassium 875 mg 10/09/18 10:00 10/12/18 09:54 Augmentin Oral Liqd PO 10/13/18 22:01 875 mg Q12HR LENCHO Administration Lipase/Protease/Amylase 1 each 09/28/18 15:34 Pancreazgenia Alas 10,500 Unit FEEDTUBE PRN PRN For Clogged Feeding Tube Ascorbic Acid 500 mg 09/28/18 10:00 10/12/18 09:52 Vitamin C FEEDTUBE 500 mg QDAY LENCHO Administration Aspirin 81 mg 09/29/18 10:00 10/12/18 09:52 Baby Aspirin FEEDTUBE 81 mg QDAY LENCHO Administration Atorvastatin Calcium 40 mg 09/28/18 22:00 10/11/18 21:30 Lipitor FEEDTUBE 40 mg QHS LENCHO Administration Bisacodyl 10 mg 09/28/18 03:34 10/06/18 16:03 Dulcolax MS 10 mg QDAY PRN Administration Constipation Dextrose 50 ml 09/28/18 03:11 10/01/18 18:14 D50w (25gm) Syringe IV 50 ml PRN PRN Administration Hypoglycemia Docusate Sodium 100 mg 09/28/18 03:34 Colace FEEDTUBE QDAY PRN Constipation Famotidine 20 mg 10/03/18 16:00 10/12/18 09:52 Pepcid PO 20 mg QDAY LENCHO Administration Ferrous Sulfate 308 mg 09/28/18 10:00 10/12/18 09:53 Ferrous Sulfate FEEDTUBE 308 mg DAILY LENCHO Administration Furosemide 20 mg 10/09/18 22:00 10/12/18 09:52 Lasix PO 20 mg QDAY LENCHO Administration Glycopyrrolate 2 mg 09/28/18 06:00 10/12/18 14:11 Robinul FEEDTUBE 2 mg Q8H LENCHO Administration Heparin Sodium (Porcine) 5,000 unit 09/28/18 10:00 10/12/18 09:55 Heparin SUB-Q 5,000 unit Q12HR LENCHO Administration Hydralazine HCl 10 mg 10/01/18 15:51 10/02/18 05:45 Apresoline IV 10 mg Q4HR PRN Administration Hypertension Insulin Glargine 45 units 10/07/18 22:00 10/11/18 22:59 Lantus SUB-Q 45 units QHS LENCHO Administration Insulin Human Regular 0 units 10/01/18 12:00 10/12/18 12:33 Humulin R SUB-Q 2 units Q6HR LENCHO Administration Protocol Lacosamide 100 mg 09/28/18 10:00 10/12/18 09:52 Vimpat PO 100 mg Q12HR LENCHO Administration Lisinopril 10 mg 09/29/18 10:00 10/12/18 09:52 Zestril FEEDTUBE 10 mg QDAY LENCHO Administration Metoclopramide HCl 10 mg 10/02/18 23:57 10/03/18 00:59 Reglan IV 10 mg Q6H PRN Administration Nausea And Vomiting Ondansetron HCl 4 mg 09/28/18 03:17 10/02/18 21:47 Zofran IV 4 mg Q8H PRN Administration Nausea And Vomiting Simple Syrup 15 ml 09/28/18 15:34 09/29/18 04:50 Simple Syrup FEEDTUBE 15 ml PRN PRN Administration Hypoglycemia Simple Syrup 30 ml 09/28/18 15:34 Simple Syrup FEEDTUBE PRN PRN Hypoglycemia Sodium Bicarbonate 325 mg 09/28/18 15:34 Sodium Bicarbonate FEEDTUBE PRN PRN For Clogged Feeding Tube Sucralfate 1 gm 09/28/18 04:00 10/12/18 12:33 Carafate FEEDTUBE 1 gm Q8H LENCHO Administration Tamsulosin HCl 0.4 mg 09/29/18 10:00 10/12/18 09:52 Flomax PO 0.4 mg QDAY LENCHO Administration Nutrition/Malnutrition Assess - Dietary Evaluation Nutrition/Malnutrition Findings: Nutrition Notes Start: 09/28/18 15:13 Freq: Status: Active Protocol: Document 10/07/18 14:04 CASSI (Rec: 10/07/18 14:10 CASSI [id number] [email or web address]) Nutrition Notes Initial or Follow up Reassessment Current Diagnosis Diabetes,Sepsis,Respiratory Failure Other Pertinent Diagnosis Aspiration pneu, anemia Current Diet TF - Glucerna 1.2 at 65ml/hr Labs/Tests Na 146 K 3 BUN 39 BG 191 Pertinent Medications Lasix, 40mEq KCl q3h Height 5 ft 7 in Weight 77.39 kg [place] Body Weight (kg) 67.27 BMI 26.7 Weight change and time frame Current wt obtained from bed scale Subjective/Other Information TF infusing at goal rate; pt tolerating TF, per RN report. Pt receiving 100ml water flush q4h. Percent of energy/protein needs met: 100% energy 96% pro Burn Absent Trauma Absent #1 Nutrition Diagnosis Inadequate oral intake Diagnosis Progress(for reassessment Continues documentation) Is patient on ventilator? No Is Patient Ambulatory and/or Out of Bed No REE-(Dawes-St. Jeor-confined to bed) 4989.588 Calculation Used for Recommendations Dawes-St Jeor Additional Notes Pro needs 1.25-1.5g/k- 116g/day Fluid needs 1ml/kcal Nutrition Intervention Nutrition Support: Continue Glucerna 1.2 at 65 ml /hr. Water flush of 100 mls q 4 hrs . Kcal 1,872 Protein (gm) 94 Fluid (mL) 1,256 Goal #1 TF tolerance Goal #2 TF to meet 80-100% energy and pro needs Follow-Up By: 10/14/18 Additional Comments F/U: stable TF, wt - Attestation Statement I have reviewed and agreed w/ Malnutrition eval & tx plan: Yes
[2018-10-12 18:30] VITALS: BP 115/61
== END 2018-10-12 19:10 | DRG 871 ==
LOC: ED 22:40 → 4A 09-28 03:06 → 2B-ACE 10-07 17:45
PROVIDERS: ADMIT Internal Medicine; ATTEND Internal Medicine
PROC: 4A033R1 Measurement of Arterial Saturation, Peripheral, Percutaneous Approach (ICD-10-PCS; principal; 2018-09-27)
PROC: 30233N1 Transfusion of Nonautologous Red Blood Cells into Peripheral Vein, Percutaneous Approach (ICD-10-PCS; 2018-10-06)
DX: A41.9 Sepsis, unspecified organism (principal); G92 Toxic encephalopathy; J69.0 Pneumonitis due to inhalation of food and vomit; J96.21 Acute and chronic respiratory failure with hypoxia; N39.0 Urinary tract infection, site not specified; G93.1 Anoxic brain damage, not elsewhere classified; R13.12 Dysphagia, oropharyngeal phase; I10 Essential (primary) hypertension; R62.7 Adult failure to thrive; B37.9 Candidiasis, unspecified; E87.70 Fluid overload, unspecified; L89.619 Pressure ulcer of right heel, unspecified stage; L89.159 Pressure ulcer of sacral region, unspecified stage; L89.019 Pressure ulcer of right elbow, unspecified stage; G40.909 Epilepsy, unspecified, not intractable, without status epilepticus; N40.0 Benign prostatic hyperplasia without lower urinary tract symptoms; D64.9 Anemia, unspecified; L89.629 Pressure ulcer of left heel, unspecified stage; E11.65 Type 2 diabetes mellitus with hyperglycemia; Z93.0 Tracheostomy status; Z86.74 Personal history of sudden cardiac arrest; Z86.73 Personal history of transient ischemic attack (TIA), and cerebral infarction without residual deficits; Z79.899 Other long term (current) drug therapy; Z79.82 Long term (current) use of aspirin; Z79.4 Long term (current) use of insulin; Z68.26 Body mass index [BMI] 26.0-26.9, adult; E11.649 Type 2 diabetes mellitus with hypoglycemia without coma; Z93.1 Gastrostomy status
CPT/HCPCS: 36415; 36600; 71045; 80048; 80053; 80061; 80202; 81001; 82140; 82550; 82553; 82803; 82962; 83735; 84100; 84484; 85025; 86140; 86850; 86900; 86901; 86920; 87040; 87086; 87116; 87205; 93970; 94640; 94760; 96361; 96365; 96366; 96375; G0378; A9270-GY; J0360; J0692; J1644; J1815; J1940; J1956; J2405; J2765; J3370; J7030; J7040; J7050; P9016

== ENCOUNTER 2018-11-13 13:25 | Inpatient (IN) | payer MEDICARE ==
[2018-11-13] MEDS ORDERED: NACL 0.9% 1000 ML IV ONE (13:30)
--- NOTE | 2018-11-13 13:36 | Emergency Department Report ---
ED General Adult HPI - General Stated complaint: GREG Time Seen by Provider: 11/13/18 13:29 Source: EMS Mode of arrival: Stretcher Limitations: Altered Mental Status, Physical Limitation - History of Present Illness Initial comments: Patient is a 77-year-old male that presents from her correction to the emergency room for respiratory distress and labored breathing. Patient was sent here by [facility] for evaluation. Patient came in by EMS. He is normally minimally responsive. Patient's chart reviewed. -: Sudden Consistency: constant Improves with: none Worsens with: none Treatments Prior to Arrival: other - Related Data Home Medications Medication Instructions Recorded Confirmed Last Taken Amantadine [Symmetrel] 100 mg FEEDTUBE DAILY 08/18/18 09/28/18 08/13/18 Amlodipine Besylate [Norvasc] 5 mg FEEDTUBE DAILY 08/18/18 09/28/18 08/13/18 Ascorbic Acid [Vitamin C Oral Liq] 500 mg FEEDTUBE QDAY 08/18/18 09/28/18 08/13/18 Atorvastatin Calcium [Lipitor] 40 mg FEEDTUBE DAILY 08/18/18 09/28/18 08/13/18 Bisacodyl [Dulcolax suppos] 10 mg AR QDAY PRN 08/18/18 09/28/18 Unknown Docusate Sodium [Colace ORAL LIQ] 100 mg FEEDTUBE QDAY PRN 08/18/18 09/28/18 Unknown Ferrous Sulfate [Ferrous Sulfate 7.5 ml FEEDTUBE DAILY 08/18/18 09/28/18 08/13/18 220 MG/5 ML] Glycopyrrolate [Robinul] 2 mg FEEDTUBE Q8H 08/18/18 09/28/18 08/13/18 Insulin Glargine,Hum.rec.anlog 40 unit SQ HS 08/18/18 09/28/18 08/12/18 [Basaglar Kwikpen U-100] Lacosamide [Vimpat] 1 tab FEEDTUBE Q12HR 08/18/18 09/28/18 Unknown Acetaminophen 650 mg FEEDTUBE Q12H PRN 09/28/18 09/28/18 Unknown Aspirin [Aspirin BABY CHEW TAB] 81 mg FEEDTUBE QDAY 09/28/18 09/28/18 Unknown Benazepril HCl [Lotensin] 10 mg FEEDTUBE QDAY 09/28/18 09/28/18 Unknown Lispro Insulin [HumaLOG] See Protocol SQ ACHS 09/28/18 09/28/18 Unknown Tamsulosin [Flomax] 0.4 mg FEEDTUBE QDAY 09/28/18 09/28/18 Unknown guaiFENesin [Mucus-Chest 200 mg FEEDTUBE Q4H PRN 09/28/18 09/28/18 Unknown Congestion] Previous Rx's Medication Instructions Recorded Last Taken Type Amoxicillin/Potassium Clav 600 mg PO Q12H 5 Days ml 10/09/18 Unknown Rx [Augmentin Es-600 Suspension] Famotidine [Pepcid] 20 mg PO QDAY #30 tablet 10/09/18 Unknown Rx Fluconazole [Diflucan TAB] 100 mg PO QDAY #14 tablet 10/09/18 Unknown Rx Furosemide [Lasix TAB] 40 mg PO QDAY #30 tablet 10/09/18 Unknown Rx Ipratropium/Albuterol Sulfate 1 ampul IH Q6HRT #90 ampul.neb 10/09/18 Unknown Rx [DUONEB *Not for PRN Use*] Sucralfate [Carafate] 1 gm FEEDTUBE Q8H oral.liqd 10/09/18 Unknown Rx Allergies Allergy/AdvReac Type Severity Reaction Status Date / Time No Known Allergies Allergy Verified 08/12/18 21:47 ED Review of Systems ROS: Stated complaint: GREG Other details as noted in HPI Comment: Unobtainable due to pts medical conditions ED Past Medical Hx - Past Medical History Previous Medical History?: Yes Hx Hypertension: Yes Hx CVA: Yes Hx Congestive Heart Failure: No Hx Diabetes: Yes Hx Deep Vein Thrombosis: (history of CVA) Hx Seizures: Yes (status epilepticus) Hx Asthma: No Hx COPD: No Hx HIV: No Additional medical history: Muscle Weakness, Dysphagia, Treacheostomy, Gastrostomy,Anemia, RESP Failure,Prostatic Hyperplasia, Hyperlipidemia, Toxic Encephalopathy, Metabolic Encepholopathy, Hemiplegia - Surgical History Past Surgical History?: Yes Hx Pacemaker: No Hx Internal Defibrillator: No Additional Surgical History: Treachostomy, Gastrostomy - Family History Family history: no significant - Social History Smoking Status: Unknown if ever smoked Substance Use Type: None - Medications Home Medications: Home Medications Medication Instructions Recorded Confirmed Last Taken Type Amantadine [Symmetrel] 100 mg FEEDTUBE DAILY 08/18/18 09/28/18 08/13/18 History Amlodipine Besylate [Norvasc] 5 mg FEEDTUBE DAILY 08/18/18 09/28/18 08/13/18 History Ascorbic Acid [Vitamin C Oral Liq] 500 mg FEEDTUBE QDAY 08/18/18 09/28/18 08/13/18 History Atorvastatin Calcium [Lipitor] 40 mg FEEDTUBE DAILY 08/18/18 09/28/18 08/13/18 History Bisacodyl [Dulcolax suppos] 10 mg AR QDAY PRN 08/18/18 09/28/18 Unknown History Docusate Sodium [Colace ORAL LIQ] 100 mg FEEDTUBE QDAY PRN 08/18/18 09/28/18 Unknown History Ferrous Sulfate [Ferrous Sulfate 7.5 ml FEEDTUBE DAILY 08/18/18 09/28/18 08/13/18 History 220 MG/5 ML] Glycopyrrolate [Robinul] 2 mg FEEDTUBE Q8H 08/18/18 09/28/18 08/13/18 History Insulin Glargine,Hum.rec.anlog 40 unit SQ HS 08/18/18 09/28/18 08/12/18 History [Basaglar [place] U-100] Lacosamide [Vimpat] 1 tab FEEDTUBE Q12HR 08/18/18 09/28/18 Unknown History Acetaminophen 650 mg FEEDTUBE Q12H PRN 09/28/18 09/28/18 Unknown History Aspirin [Aspirin BABY CHEW TAB] 81 mg FEEDTUBE QDAY 09/28/18 09/28/18 Unknown History Benazepril HCl [Lotensin] 10 mg FEEDTUBE QDAY 09/28/18 09/28/18 Unknown History Lispro Insulin [HumaLOG] See Protocol SQ ACHS 09/28/18 09/28/18 Unknown History Tamsulosin [Flomax] 0.4 mg FEEDTUBE QDAY 09/28/18 09/28/18 Unknown History guaiFENesin [Mucus-Chest 200 mg FEEDTUBE Q4H PRN 09/28/18 09/28/18 Unknown History Congestion] Amoxicillin/Potassium Clav 600 mg PO Q12H 5 Days ml 10/09/18 Unknown Rx [Augmentin Es-600 Suspension] Famotidine [Pepcid] 20 mg PO QDAY #30 tablet 10/09/18 Unknown Rx Fluconazole [Diflucan TAB] 100 mg PO QDAY #14 tablet 10/09/18 Unknown Rx Furosemide [Lasix TAB] 40 mg PO QDAY #30 tablet 10/09/18 Unknown Rx Ipratropium/Albuterol Sulfate 1 ampul IH Q6HRT #90 ampul.neb 10/09/18 Unknown Rx [DUONEB *Not for PRN Use*] Sucralfate [Carafate] 1 gm FEEDTUBE Q8H oral.liqd 10/09/18 Unknown Rx ED Physical Exam - General Limitations: Altered Mental Status, Physical Limitation General appearance: alert, in distress - Head Head exam: Present: atraumatic, normocephalic - Eye Eye exam: Present: normal appearance, PERRL Pupils: Present: normal accommodation - ENT ENT exam: Present: mucous membranes dry - Neck Neck exam: Present: normal inspection - Respiratory Respiratory exam: Present: respiratory distress, rhonchi - Cardiovascular Cardiovascular Exam: Present: regular rate, normal rhythm. Absent: systolic murmur, diastolic murmur, rubs, gallop - GI/Abdominal GI/Abdominal exam: Present: soft, normal bowel sounds - Rectal Rectal exam: Present: deferred - Extremities Exam Extremities exam: Present: normal capillary refill, pedal edema - Back Exam Back exam: Present: normal inspection - Neurological Exam Neurological exam: Present: altered - Skin Skin exam: Present: warm, dry, intact, normal color. Absent: rash ED Course Vital Signs 11/13/18 11/13/18 11/13/18 13:32 14:14 15:59 Pulse Rate 109 H 114 H Respiratory 33 H 18 Rate Blood Pressure 111/55 77/42 O2 Sat by Pulse 100 100 100 Oximetry 11/13/18 11/13/18 16:01 16:15 Pulse Rate 99 H Respiratory 19 18 Rate Blood Pressure 65/34 65/34 O2 Sat by Pulse 90 100 Oximetry - Reevaluation(s) Reevaluation #1: I discussed case with family. Patient has not received any fluids and the fluids have been discontinued. Patient's chest x-ray shows congestive changes. Patient will be given Lasix. 11/13/18 14:37 Reevaluation #2: Patient's oxygen sats good. Patient on the ventilator. Patient's blood pressure stable. 11/13/18 15:24 Reevaluation #3: I discussed all results with family. I discussed plan of care with family. Family agrees with plan of care. Patient will be admitted to the ICU and to the hospitalist service. Patient's blood pressure low. Patient given fluids. Patient will require central line. 11/13/18 15:31 Central line placed. See procedure note 11/13/18 16:10 Reevaluation #4: Patient will be started on dobutamine for hypotension. Central venous line is clear to use 11/13/18 16:15 - Consultations Consultation #1: Hospitalist consulted for admission. Hospice was to admit patient. Bridging orders placed. 11/13/18 15:30 - Central Line Placement Right Femoral Consent Obtained: emergent situation Time Out Performed: Yes Patient Placed on Monitor/Pulse Ox: Yes MD Prep: mask, gown, gloves Central Line Prep: Povidone-Iodine 1%, Chlorhexidine scrub, sterile drapes applied Ultrasound Used for Placement: Yes Central Line Lumen Inserted: triple Bloods Obtained for Lab: No Central Line Position: good blood return, all ports aspirated, flus, sutured in place with 2-0 Dressing Applied: Tegaderm Patient Tolerated Procedure: well, no complications Complications: none - EJ/Peripheral Line Neck L Time Out Performed: Yes Indications: nurses unable to establis Skin Cleansed in Sterile Fashion: Yes Size: 20 Dressing Placed: Tegaderm, tape Patient Tolerated Procedure: well, no complications ED Medical Decision Making - Lab Data Result diagrams: 11/13/18 14:00 11/13/18 14:00 - EKG Data -: EKG Interpreted by Me EKG shows normal: sinus rhythm, axis, intervals, QRS complexes, ST-T waves Rate: tachycardia - Radiology Data Radiology results: report reviewed, image reviewed interpreted by me: Pulmonary congestion noted. - Medical Decision Making Patient is a 77-year-old male that presents from a correction for respiratory distress and labored breathing. Patient found to be hypoxic and placed on a ventilator. Patient has a trach already in place. Patient has multiple past medical history. Patient in a essentially vegetative state. Patient found to have pulmonary congestion and loss of peripheral edema. Patient given Lasix. Patient given antibiotics for fever and tachycardia and possible sepsis. Patient's white count normal. Patient found to be anemic. Patient improved on ventilator. - Differential Diagnosis edema. Sepsis. Urosepsis. Pneumonia. Pulmonary congestion Critical Care Time: Yes Critical care attestation.: If time is entered above; I have spent that time in minutes in the direct care of this critically ill patient, excluding procedure time. Critical Care Time: 80 minutes ED Disposition Clinical Impression: Respiratory distress, Hypoxia, Septic shock, Elevated troponin I level CHF (congestive heart failure) Qualifiers: Heart failure type: unspecified Heart failure chronicity: acute Qualified Code(s): I50.9 - Heart failure, unspecified Anemia Qualifiers: Anemia type: unspecified type Qualified Code(s): D64.9 - Anemia, unspecified Edema Qualifiers: Edema type: unspecified Qualified Code(s): R60.9 - Edema, unspecified Hypotension Qualifiers: Hypotension type: unspecified hypotension type Qualified Code(s): I95.9 - Hypotension, unspecified Sepsis Qualifiers: Sepsis type: sepsis due to unspecified organism Sepsis acute organ dysfunction status: without acute organ dysfunction Qualified Code(s): A41.9 - Sepsis, unspecified organism Urinary tract infection Qualifiers: Urinary tract infection type: acute cystitis Hematuria presence: with hematuria Qualified Code(s): N30.01 - Acute cystitis with hematuria Fever Qualifiers: Fever type: unspecified Qualified Code(s): R50.9 - Fever, unspecified Pneumonia Qualifiers: Pneumonia type: due to unspecified organism Laterality: right Lung location: middle lobe of lung Qualified Code(s): J18.1 - Lobar pneumonia, unspecified organism Disposition: OP ADMIT IP TO THIS HOSP Is pt being admited?: Yes Does the pt Need Aspirin: No Condition: Critical Time of Disposition: 15:29
[2018-11-13] MEDS ORDERED: MAXIPIME/NS 2 GM/100 ML 2 GM/100 ML BAG IV ONE (13:40)
[2018-11-13] MEDS ORDERED: NACL 0.9% 1000 ML 1,000 ML IV ONE (13:40)
--- NOTE | 2018-11-13 14:00 | XRay Report ---
CHEST 1 VIEW INDICATION: Respiratory distress. COMPARISON: 10/09/2018 FINDINGS: Support devices: Tracheostomy remains in good position Heart: Within normal limits. Lungs/Pleura: Mild bilateral perihilar prominence is identified. This probably represents congestive changes although early infiltrates could be considered. No pleural effusion or pneumothorax. Additional findings: None. IMPRESSION: Mild pulmonary venous congestion. Signer Name: Faraz Resendiz Jr, MD Signed: 11/13/2018 1:56 PM Workstation Name: [id number]
[2018-11-13 14:30] LABS: Hematocrit 22.9 % (35.5-45.6); Hemoglobin 7.4 gm/dl (11.8-15.2); Mean Corpuscular HGB Conc 33 % (32-34); Mean Corpuscular Volume 82 fl (84-94); Platelet Count 199 K/mm3 (140-440)
[2018-11-13 14:35] LABS: Alanine Aminotransferase 134 units/L (7-56); Albumin 1.2 g/dL (3.9-5); BUN/Creatinine Ratio 50; Blood Urea Nitrogen 50 mg/dL (9-20); Calcium 8.1 mg/dL (8.4-10.2); Hemolysis Index 15
[2018-11-13] MEDS ORDERED: LASIX IV ONE (14:38)
[2018-11-13 15:26] LABS: Bacteria,Urine 1+ /HPF (Negative); Bilirubin,Urine NEG (Negative); Blood,Urine NEG (Negative); Color,Urine Yellow (Yellow); Mucus,Urine FEW /HPF
[2018-11-13 15:37] LABS: Basophils % (Manual) 0 % (0.0-1.8); Total Cells Counted 100
[2018-11-13 15:39] LABS: Anisocytosis 1+; Platelet Estimate Consistent w Auto; Poikilocytosis Few; Spherocytes Few
[2018-11-13 15:40] LABS: Creatine Kinase MB 4.4 ng/mL (0.0-4.0)
[2018-11-13] MEDS ORDERED: DOBUTREX DRIP 500MG/D5W 250ML 500 MG/250 ML BAG IV ONE ×3 (16:10→20:22)
[2018-11-13] MEDS ORDERED: NACL 0.9% 500 ML 500 ML IV ONE (23:55)
[2018-11-14] MEDS: LEVOPHED DRIP 4 MG/NS 250 ML 4 MG/250 ML BAG IV SCH ×2 (00:17→05:24)
[2018-11-14] MEDS: NACL 0.9% 1000 ML 1,000 ML IV SCH ×2 (00:44→19:04)
[2018-11-14] MEDS ORDERED: VANCOMYCIN PHARMACY TO DOSE IV SCH (03:00)
--- NOTE | 2018-11-14 03:06 | Event Note ---
Date: 11/13/18 See H/p in reports Acute Resp failure Septic shock Peg tube status
[2018-11-14 03:12] LABS: Hepatitis B Surface Antigen Non-Reactive (Negative); Hepatitis C Virus Antibody Non-Reactive (NonReactive)
--- NOTE | 2018-11-14 03:29 | History and Physical Report ---
CHIEF COMPLAINT: 1. Respiratory distress. 2. Labored breathing. HISTORY OF PRESENT ILLNESS: A 77-year-old -[place] male with multiple medical problems from the past including insulin-dependent diabetes, hypertension, BPH, PEG tube, anemia, sent from half-way for respiratory distress. The patient has a trach in place. The patient has a normally minimally responsive. Stares into the space. The patient was brought in by EMS. Unknown whether the patient had fever. Cough present. Temperature in the Emergency Room was near normal, 98.4. PAST MEDICAL HISTORY: As mentioned, insulin-dependent diabetes, hypertension, BPH, trach status, hyperlipidemia and questionable Parkinson's disease. Also, dysphagia and muscle weakness. Chronic encephalopathy. Hemiplegia. PAST SURGICAL HISTORY: Tracheostomy and gastrostomy. FAMILY HISTORY: Hypertension. SOCIAL HISTORY: Does not smoke. No alcohol, no recreational drugs as per at bedside. PHYSICAL EXAMINATION: GENERAL: Elderly male, the patient on vent through the tracheostomy tube, staring into space. HEENT: Dry mucous membranes. NECK: Supple, no lymphadenopathy, no thyromegaly. Trach in place. LUNGS: Scattered rhonchi bilaterally. CARDIOVASCULAR: S1, S2 heard. No gallop, no murmur, no rub. Apical impulse in left fifth intercostal space and midclavicular line. ABDOMEN: Soft and benign. No hepatosplenomegaly. No guarding, no rigidity. Hernial orifices are normal. EXTREMITIES: Good pedal pulses. No pedal edema. CENTRAL NERVOUS SYSTEM: Alert, but not oriented. Staring into space. Does not move both upper and lower extremities, more so on the right side to slightly. LABORATORY DATA: Significant for white count of 3800, H and H of 7.4 and 22.9. White count is 3800, H and H is 7.4 and 22.9, platelet count is normal. Sodium is 147, BUN and creatinine 15 and 1.0, bicarbonate is 23. Lactic acid is 3.9. AST is 154, ALT is 134, alkaline phosphatase is 586, total creatinine kinase is 510. Troponin is 0.0348, triglycerides are 284. Urine shows wbc's 36. OTHER IMAGING STUDIES: Chest x-ray shows mild pulmonary venous congestion. EKG shows sinus tachycardia. ASSESSMENT AND PLAN: 1. Acute respiratory failure. The patient on DuoNebs with low-dose Solu-Medrol and IV antibiotics, cefepime and vancomycin. 2. Septic shock. The patient has a source probably from urinary tract infection and skin. The patient started on cefepime and vancomycin. Status post PEG tube status. PEG tube to be used for feeding. 3. Pancytopenia. Treat the sepsis. 4. Acute kidney injury. IV fluids. BUN and creatinine 15 and 1.0. 5. Elevated lactic acid, probably secondary to sepsis. 6. Elevated troponin, probably secondary to sepsis. We will trend the troponins. 7. Acute hepatitis. Check hepatitis profile. AST, ALT are elevated. 8. Urinary tract infection, IV cefepime should be useful for the urinary tract infection also. 9. Deep venous thrombosis prophylaxis, heparin 5000 q. 12 and gastrointestinal prophylaxis. 10. Hyperglycemia. Coverage for now. CRITICAL CARE STATEMENT: High probability of a clinically significant sudden or life-threatening deterioration of the pulmonary, cardiac, renal systems required my full and direct attention, intervention, and personal management. The aggregate critical care time was 40 minutes. At this time, is in addition to time spent performing reported procedures, but includes the followin. Data review and interpretation. 2. The patient assessment and monitoring of vital signs. 3. Documentation. 4. Medication orders and management. JOB# [id number] CRYS/NELSON BROOKS
[2018-11-14] MEDS: MAXIPIME/NS 2 GM/100 ML 2 GM/100 ML BAG IV SCH ×3 (03:34→22:31)
[2018-11-14] MEDS: HEPARIN SUB-Q SCH ×3 (03:37→22:21)
[2018-11-14] MEDS: DOBUTREX DRIP 500MG/D5W 250ML 500 MG/250 ML BAG IV SCH ×2 (03:44)
[2018-11-14] MEDS ORDERED: VANCOMYCIN 1,750 MG in NACL 0.9% 500 ML 500 ML IV ONE (05:00)
[2018-11-14] MEDS: HumaLOG SUB-Q SCH ×4 (07:22→23:51)
[2018-11-14] MEDS: Vasostrict 20 UNIT in NACL 0.9% 100 ML IV SCH ×2 (09:16→20:18)
[2018-11-14] MEDS: LEVOPHED 8 MG in NACL 0.9% 250ML 242 ML IV SCH (09:21)
[2018-11-14] MEDS: PEPCID IV SCH ×2 (10:12→22:21)
--- NOTE | 2018-11-14 10:43 | Progress Note ---
Assessment and Plan Assessment and plan: Acute on chronic resp failure Admitted to ICU ptient had previous tracheostomy Trach to ventilator Pulmonology following Shock, poss due to sepsis Possible sepsis with septic shock On Levophed and Dobutamine titrate to keep MAP>65 Diabetes mellitus type 2 Fingerstick q4h Hypertension by history. Currently hypotensive History of chronic hypoxic encephalopathy Hyperlipidemia Full code status History Interval history: patient with sepsis,septic shock,acute on chronic resp failure Still on pressors Hospitalist Physical - Physical exam Narrative exam: Gen: Not in acute distress, lying in bed, HEENT: Normocephalic, atraumatic, tracheostomy to vent Neck: supple, no JVD,trach Heart: S1 and S2 reg, no murmurs, rubs or gallop Lungs: Clear, no crackles, no rhonchi Abd: soft, non tender, non distended, normal BS, PEG tube Ext: No edema, no clubbing, no cyanosis Neuro: Eyes open, does not follow commands - Constitutional Vitals: Temp Pulse Resp BP Pulse Ox 98.1 F 115 H 13 89/50 100 11/14/18 03:39 11/14/18 08:30 11/14/18 08:30 11/14/18 08:30 11/14/18 08:30 Results - Labs CBC & Chem 7: 11/14/18 14:17 11/14/18 14:17 Labs: Laboratory Last Values WBC 3.8 K/mm3 (4.5-11.0) L 11/13/18 14:00 RBC 2.80 M/mm3 (3.65-5.03) L 11/13/18 14:00 Hgb 7.4 gm/dl (11.8-15.2) L 11/13/18 14:00 Hct 22.9 % (35.5-45.6) L 11/13/18 14:00 MCV 82 fl (84-94) L 11/13/18 14:00 MCH 27 pg (28-32) L 11/13/18 14:00 MCHC 33 % (32-34) 11/13/18 14:00 RDW 19.0 % (13.2-15.2) H 11/13/18 14:00 Plt Count 199 K/mm3 (140-440) 11/13/18 14:00 Add Manual Diff Complete 11/13/18 14:00 Total Counted 100 11/13/18 14:00 Seg Neuts % (Manual) 87.0 % (40.0-70.0) H 11/13/18 14:00 0 % 11/13/18 14:00 5.0 % (13.4-35.0) L 11/13/18 14:00 Reactive Lymphs % (Man) 0 % 11/13/18 14:00 1.0 % (0.0-7.3) 11/13/18 14:00 7.0 % (0.0-4.3) H 11/13/18 14:00 0 % (0.0-1.8) 11/13/18 14:00 0 % 11/13/18 14:00 0 % 11/13/18 14:00 0 % 11/13/18 14:00 0 % 11/13/18 14:00 Nucleated RBC % Not Reportable 11/13/18 14:00 Seg Neutrophils # Man 3.3 K/mm3 (1.8-7.7) 11/13/18 14:00 Band Neutrophils # 0.0 K/mm3 11/13/18 14:00 0.2 K/mm3 (1.2-5.4) L 11/13/18 14:00 Abs React Lymphs (Man) 0.0 K/mm3 11/13/18 14:00 0.0 K/mm3 (0.0-0.8) 11/13/18 14:00 0.3 K/mm3 (0.0-0.4) 11/13/18 14:00 0.0 K/mm3 (0.0-0.1) 11/13/18 14:00 0.0 K/mm3 11/13/18 14:00 0.0 K/mm3 11/13/18 14:00 0.0 K/mm3 11/13/18 14:00 Blast Cells # 0.0 K/mm3 11/13/18 14:00 WBC Morphology Not Reportable 11/13/18 14:00 Hypersegmented Neuts Not Reportable 11/13/18 14:00 Hyposegmented Neuts Not Reportable 11/13/18 14:00 Hypogranular Neuts Not Reportable 11/13/18 14:00 Not Reportable 11/13/18 14:00 Not Reportable 11/13/18 14:00 Not Reportable 11/13/18 14:00 Not Reportable 11/13/18 14:00 Not Reportable 11/13/18 14:00 Not Reportable 11/13/18 14:00 Consistent w auto 11/13/18 14:00 Not Reportable 11/13/18 14:00 Plt Clumps, EDTA Not Reportable 11/13/18 14:00 Not Reportable 11/13/18 14:00 Not Reportable 11/13/18 14:00 Not Reportable 11/13/18 14:00 Plt Morphology Comment Not Reportable 11/13/18 14:00 RBC Morphology Not Reportable 11/13/18 14:00 Dimorphic RBCs Not Reportable 11/13/18 14:00 Few 11/13/18 14:00 Not Reportable 11/13/18 14:00 Few 11/13/18 14:00 1+ 11/13/18 14:00 Not Reportable 11/13/18 14:00 Not Reportable 11/13/18 14:00 Few 11/13/18 14:00 Not Reportable 11/13/18 14:00 Not Reportable 11/13/18 14:00 Not Reportable 11/13/18 14:00 Not Reportable 11/13/18 14:00 Not Reportable 11/13/18 14:00 Not Reportable 11/13/18 14:00 Not Reportable 11/13/18 14:00 Not Reportable 11/13/18 14:00 Not Reportable 11/13/18 14:00 Not Reportable 11/13/18 14:00 Not Reportable 11/13/18 14:00 Not Reportable 11/13/18 14:00 Acanthocytes (Spur) Not Reportable 11/13/18 14:00 Rouleaux Not Reportable 11/13/18 14:00 Not Reportable 11/13/18 14:00 Not Reportable 11/13/18 14:00 Not Reportable 11/13/18 14:00 Not Reportable 11/13/18 14:00 Hem Pathologist Commnt No 11/13/18 14:00 POC ABG pH 7.463 (7.35-7.45) H 11/14/18 05:46 POC ABG pCO2 38.3 (35-45) 11/14/18 05:46 POC ABG pO2 136 (80-105) H 11/14/18 05:46 POC ABG HCO3 27.4 (22-26 mml/L) 11/14/18 05:46 POC ABG Total CO2 29 (23-27mmol/L) 11/14/18 05:46 POC ABG O2 Sat 99 11/14/18 05:46 POC ABG Base Excess 4 ((-2) - (+3)mmol/L) 11/14/18 05:46 45 % 11/14/18 05:46 Sodium 147 mmol/L (137-145) H 11/13/18 14:00 Potassium 4.0 mmol/L (3.6-5.0) 11/13/18 14:00 Chloride 105.9 mmol/L (98-107) 11/13/18 14:00 Carbon Dioxide 33 mmol/L (22-30) H 11/13/18 14:00 12 mmol/L 11/13/18 14:00 BUN 50 mg/dL (9-20) H 11/13/18 14:00 1.0 mg/dL (0.8-1.5) 11/13/18 14:00 Estimated GFR > 60 ml/min 11/13/18 14:00 50 % 11/13/18 14:00 Glucose 193 mg/dL (75-100) H 11/13/18 14:00 POC Glucose 263 (70-105) H 11/14/18 05:23 Lactic Acid 2.70 mmol/L (0.7-2.0) H* 11/14/18 08:02 Calcium 8.1 mg/dL (8.4-10.2) L 11/13/18 14:00 0.70 mg/dL (0.1-1.2) 11/13/18 14:00 AST 154 units/L (5-40) H 11/13/18 14:00 ALT 134 units/L (7-56) H 11/13/18 14:00 586 units/L (35-129) H 11/13/18 14:00 510 units/L (55-170) H 11/13/18 14:49 CK-MB (CK-2) 4.4 ng/mL (0.0-4.0) H 11/13/18 14:49 CK-MB (CK-2) Rel Index 0.8 (0-4) 11/13/18 14:49 0.348 ng/mL (0.00-0.029) H* 11/13/18 14:49 NT-Pro-B Natriuret Pep 3679 pg/mL (0-900) H 11/13/18 14:49 6.8 g/dL (6.3-8.2) 11/13/18 14:00 1.2 g/dL (3.9-5) L 11/13/18 14:00 0.2 % 11/13/18 14:00 Triglycerides 284 mg/dL (2-149) H 11/13/18 14:49 Cholesterol 56 mg/dL (50-199) 11/13/18 14:49 4 mg/dL (50-130) L 11/13/18 14:49 7 mg/dL (40-59) L 11/13/18 14:49 8.00 % 11/13/18 14:49 Yellow (Yellow) 11/13/18 14:44 Slightly-cloudy (Clear) 11/13/18 14:44 6.0 (5.0-7.0) 11/13/18 14:44 Ur Specific [place] 1.017 (1.003-1.030) 11/13/18 14:44 30 mg/dl mg/dL (Negative) 11/13/18 14:44 Neg mg/dL (Negative) 11/13/18 14:44 Neg mg/dL (Negative) 11/13/18 14:44 Neg (Negative) 11/13/18 14:44 Neg (Negative) 11/13/18 14:44 Neg (Negative) 11/13/18 14:44 4.0 mg/dL (<2.0) 11/13/18 14:44 Ur Leukocyte Esterase Mod (Negative) 11/13/18 14:44 36.0 /HPF (0.0-6.0) H 11/13/18 14:44 21.0 /HPF (0.0-6.0) 11/13/18 14:44 1+ /HPF (Negative) 11/13/18 14:44 Few /HPF 11/13/18 14:44 3+ /HPF 11/13/18 14:44 Hepatitis A IgM Ab Non-reactive (NonReactive) 11/14/18 02:00 Hep Bs Antigen Non-reactive (Negative) 11/14/18 02:00 Hep B Core IgM Ab Non-reactive (NonReactive) 11/14/18 02:00 Non-reactive (NonReactive) 11/14/18 02:00 HIV 1&2 Antibody Rapid Non react (Non React) 11/14/18 02:00 Non react (Non React) 11/14/18 02:00 Blood Type O POSITIVE 11/13/18 14:49 Antibody Screen Negative 11/13/18 14:49 Active Medications - Current Medications Current Medications: Generic Name Dose Route Start Last Admin Trade Name Freq PRN Reason Stop Dose Admin Famotidine 20 mg 11/14/18 10:00 11/14/18 10:12 Pepcid IV 20 mg BID LENCHO Administration Heparin Sodium (Porcine) 5,000 unit 11/14/18 03:30 11/14/18 10:12 Heparin SUB-Q 5,000 unit Q12HR LENCHO Administration Dobutamine HCl/Dextrose 500 mg in 250 mls @ 5.04 mls/hr 11/13/18 16:11 11/13/18 18:17 Dobutrex Drip 500mg/D5w 250ml IV 11/15/18 17:47 40 mcg/kg/min TITR ONE 100.8 mls/hr Titration Protocol 2 MCG/KG/MIN Norepinephrine 4 mg in 250 mls @ 7.5 mls/hr 11/13/18 23:45 11/14/18 09:23 Levophed Drip 4 Mg/Ns 250 Ml IV Infused TITR LENCHO Titration Protocol 2 MCG/MIN Sodium Chloride 1,000 mls @ 125 mls/hr 11/14/18 00:15 11/14/18 00:44 Nacl 0.9% 1000 Ml IV 125 mls/hr DIRECT LENCHO Administration Dobutamine HCl/Dextrose 500 mg in 250 mls @ 50.4 mls/hr 11/14/18 00:00 11/14/18 09:20 Dobutrex Drip 500mg/D5w 250ml IV Infused DIRECT LENCHO Titration Protocol 20 MCG/KG/MIN Cefepime HCl 2 gm in 100 mls @ 200 mls/hr 11/14/18 04:00 11/14/18 03:34 Maxipime/Ns 2 Gm/100 Ml IV 200 mls/hr Q8HR LENCHO Administration Protocol Vancomycin HCl 1,250 mg/ 275 mls @ 166.667 mls/hr 11/14/18 17:00 Sodium Chloride IV Q12H LENCHO Norepinephrine 8 mg/ Sodium 250 mls @ 3.75 mls/hr 11/14/18 09:00 11/14/18 10:05 Chloride IV 14 mcg/min TITR LENCHO 26.25 mls/hr Titration Protocol 2 MCG/MIN Vasopressin 20 unit/ Sodium 101 mls @ 9.09 mls/hr 11/14/18 09:00 11/14/18 09:16 Chloride IV 0.03 units/min TITR LENCHO 9.09 mls/hr Administration Protocol 0.03 UNITS/MIN Insulin Human Lispro 0 unit 11/14/18 06:00 11/14/18 07:22 Humalog SUB-Q 4 unit Q6HR LENCHO Administration Protocol Pneumococcal Polyvalent Vaccine 0.5 ml 11/14/18 12:00 Pneumovax 23 IM 11/14/18 12:01 .ONCE ONE Nutrition/Malnutrition Assess - Dietary Evaluation Nutrition/Malnutrition Findings: Nutrition Notes Start: 11/14/18 10:3 3 Freq: Status: Active Protocol: Document 11/14/18 10:33 CASSI (Rec: 11/14/18 10:41 CASSI [email or web address]) Nutrition Notes Need for Assessment generated from: wire walker,MST Initial or Follow up Assessment Current Diagnosis Acute Kidney Injury,Diabetes, Hypertension,Respiratory Failure Other Pertinent Diagnosis Septic shock, UTI, Dysphagia, Chronic encephalopathy Current Diet No diet ordered Labs/Tests POC Glu 263 Pertinent Medications Dobutamine gtt, Levophed gtt, Vasopressin gtt Height 5 ft 9 in Weight 84 kg [place] Body Weight (kg) 72.72 BMI 27.3 Subjective/Other Information Pt screened for malnutrition risk (wt loss, poor appetite), skin risk (Minor score: 8), hx of receiving NTR support, chewing difficulty, and new onset of DM. Pt is intubated and on vent support. Pt from [place] and has PEG and trach in place. No consult received for TF yet. Burn Absent Trauma Absent #1 Nutrition Diagnosis Inadequate oral intake Etiology mech ventilation As Evidenced by Signs and Symptoms pt NPO Is patient on ventilator? Yes Is Patient Ambulatory and/or Out of Bed No REE-([facility]-confined to bed) [phone] Calculation Used for Recommendations Marleny Marques Additional Notes Pro needs 1.2-2g/k-168g/ day Fluid needs 1ml/kcal Nutrition Intervention Nutrition Support: Recommend Vital AF 1.2 at 65ml /hr when TF consult received. Goal #1 Start EN support to meet nutrient needs Anticipated Discharge Needs: Continue TF Follow-Up By: 11/16/18 Additional Comments F/U: TF consult, vent status, pressors
--- NOTE | 2018-11-14 10:47 | Consultation ---
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 He is sp trach. He was recently sent to [place] and had been doing well until on day of admission when he had worsening of his resp status. He is presently on vent. He was noted to be hypotensive start on dobutamine w worsening of status. Unsure amount of fluid pt recd in er. In ICU dobutrex was weaned off and started on norepi and now vasopressin. He grimaces to tactile stimuli Past History Past Medical History: CAD, hypertension (chronic resp failure, renal insuff, hypoxic encephalopathy), sarcoidosis, other Past Surgical History: Other (trach) Social history: , other (lives in [place]) Family history: hypertension Medications and Allergies Allergies Allergy/AdvReac Type Severity Reaction Status Date / Time No Known Allergies Allergy Verified 08/12/18 21:47 Home Medications Medication Instructions Recorded Confirmed Last Taken Type Amantadine [Symmetrel] 100 mg FEEDTUBE DAILY 08/18/18 11/14/18 08/13/18 History Amlodipine Besylate [Norvasc] 5 mg FEEDTUBE DAILY 08/18/18 11/14/18 08/13/18 History Ascorbic Acid [Vitamin C Oral Liq] 500 mg FEEDTUBE QDAY 08/18/18 11/14/18 08/13/18 History Atorvastatin Calcium [Lipitor] 40 mg FEEDTUBE DAILY 08/18/18 11/14/18 08/13/18 History Bisacodyl [Dulcolax suppos] 10 mg WI QDAY PRN 08/18/18 11/14/18 Unknown History Docusate Sodium [Colace ORAL LIQ] 100 mg FEEDTUBE QDAY PRN 08/18/18 11/14/18 Unknown History Ferrous Sulfate [Ferrous Sulfate 7.5 ml FEEDTUBE DAILY 08/18/18 11/14/18 08/13/18 History 220 MG/5 ML] Glycopyrrolate [Robinul] 2 mg FEEDTUBE Q8H 08/18/18 11/14/18 08/13/18 History Insulin Glargine,Hum.rec.anlog 40 unit SQ HS 08/18/18 11/14/18 08/12/18 History [Basaglar Kwikpen U-100] Lacosamide [Vimpat] 1 tab FEEDTUBE Q12HR 08/18/18 11/14/18 Unknown History Acetaminophen 650 mg FEEDTUBE Q12H PRN 09/28/18 11/14/18 Unknown History Aspirin [Aspirin BABY CHEW TAB] 81 mg FEEDTUBE QDAY 09/28/18 11/14/18 Unknown History Benazepril HCl [Lotensin] 10 mg FEEDTUBE QDAY 09/28/18 11/14/18 Unknown History Lispro Insulin [HumaLOG] See Protocol SQ ACHS 09/28/18 11/14/18 Unknown History Tamsulosin [Flomax] 0.4 mg FEEDTUBE QDAY 09/28/18 11/14/18 Unknown History guaiFENesin [Mucus-Chest 200 mg FEEDTUBE Q4H PRN 09/28/18 11/14/18 Unknown History Congestion] Famotidine [Pepcid] 20 mg PO QDAY #30 tablet 10/09/18 11/14/18 Unknown Rx Furosemide [Lasix TAB] 40 mg PO QDAY #30 tablet 10/09/18 11/14/18 Unknown Rx Ipratropium/Albuterol Sulfate 1 ampul IH Q6HRT #90 ampul.neb 10/09/18 11/14/18 Unknown Rx [DUONEB *Not for PRN Use*] Sucralfate [Carafate] 1 gm FEEDTUBE Q8H oral.liqd 10/09/18 11/14/18 Unknown Rx Active Meds: Active Medications Famotidine (Pepcid) 20 mg IV BID [facility] Last Admin: 11/14/18 10:12 Dose: 20 mg Documented by: Heparin Sodium (Porcine) (Heparin) 5,000 unit SUB-Q Q12HR LENCHO Last Admin: 11/14/18 10:12 Dose: 5,000 unit Documented by: Dobutamine HCl/Dextrose (Dobutrex Drip 500mg/D5w 250ml) 500 mg in 250 mls @ 5.04 mls/hr IV TITR ONE; Protocol Stop: 11/15/18 17:47 Last Titration: 11/13/18 18:17 Dose: 40 mcg/kg/min, 100.8 mls/hr Documented by: Norepinephrine (Levophed Drip 4 Mg/Ns 250 Ml) 4 mg in 250 mls @ 7.5 mls/hr IV TITR LENCHO; Protocol Last Titration: 11/14/18 09:23 Dose: Infused Documented by: Sodium Chloride (Nacl 0.9% 1000 Ml) 1,000 mls @ 125 mls/hr IV DIRECT LENCHO Last Admin: 11/14/18 00:44 Dose: 125 mls/hr Documented by: Dobutamine HCl/Dextrose (Dobutrex Drip 500mg/D5w 250ml) 500 mg in 250 mls @ 50. 4 mls/hr IV DIRECT LENCHO; Protocol Last Titration: 11/14/18 09:20 Dose: Infused Documented by: Cefepime HCl (Maxipime/Ns 2 Gm/100 Ml) 2 gm in 100 mls @ 200 mls/hr IV Q8HR LENCHO; Protocol Last Admin: 11/14/18 03:34 Dose: 200 mls/hr Documented by: Vancomycin HCl 1,250 mg/ (Sodium Chloride) 275 mls @ 166.667 mls/hr IV Q12H LENCHO Norepinephrine 8 mg/ Sodium (Chloride) 250 mls @ 3.75 mls/hr IV TITR LENCHO; Protocol Last Titration: 11/14/18 10:05 Dose: 14 mcg/min, 26.25 mls/hr Documented by: Vasopressin 20 unit/ Sodium (Chloride) 101 mls @ 9.09 mls/hr IV TITR LENCHO; Protocol Last Admin: 11/14/18 09:16 Dose: 0.03 units/min, 9.09 mls/hr Documented by: Insulin Human Lispro (Humalog) 0 unit SUB-Q Q6HR LENCHO; Protocol Last Admin: 11/14/18 07:22 Dose: 4 unit Documented by: Pneumococcal Polyvalent Vaccine (Pneumovax 23) 0.5 ml IM .ONCE ONE Stop: 11/14/18 12:01 Review of Systems ROS unobtainable: due to mental status (pt on vent, hx of cva w minimally responsive) Physical Examination Vital signs: Vital Signs BP Pulse Ox 111/55 100 11/13/18 13:29 11/13/18 13:29 General appearance: no acute distress, other (on vent, trach in place) Eyes: non-icteric ENT: oropharynx moist Effort: normal Ascultation: Bilateral: diminished breath sounds Cardiovascular: regular rate and rhythm Gastrointestinal: normoactive bowel sounds, non-distended Extremities: no cyanosis unable to assess (on vent), other Results - Laboratory Findings CBC and BMP: 11/13/18 14:00 11/13/18 14:00 ABG POC ABG pH 7.463 (7.35-7.45) H 11/14/18 05:46 POC ABG pCO2 38.3 (35-45) 11/14/18 05:46 POC ABG pO2 136 (80-105) H 11/14/18 05:46 POC ABG HCO3 27.4 (22-26 mml/L) 11/14/18 05:46 POC ABG Total CO2 29 (23-27mmol/L) 11/14/18 05:46 POC ABG O2 Sat 99 11/14/18 05:46 Abnormal lab findings: Abnormal Labs 11/13/18 11/13/18 11/13/18 03:30 14:00 14:00 WBC 3.8 L RBC 2.80 L Hgb 7.4 L Hct 22.9 L MCV 82 L MCH 27 L RDW 19.0 H Seg Neuts % (Manual) 87.0 H Lymphocytes % (Manual) 5.0 L Eosinophils % (Manual) 7.0 H Lymphocytes # (Manual) 0.2 L POC ABG pH POC ABG pO2 Sodium 147 H Carbon Dioxide 33 H BUN 50 H Glucose 193 H POC Glucose Lactic Acid 3.70 H* Calcium 8.1 L AST 154 H ALT 134 H Alkaline Phosphatase 586 H Total Creatine Kinase CK-MB (CK-2) Troponin T NT-Pro-B Natriuret Pep Albumin 1.2 L Triglycerides LDL Cholesterol Direct HDL Cholesterol Urine WBC (Auto) 11/13/18 11/13/18 11/13/18 14:00 14:44 14:49 WBC RBC Hgb Hct MCV MCH RDW Seg Neuts % (Manual) Lymphocytes % (Manual) Eosinophils % (Manual) Lymphocytes # (Manual) POC ABG pH POC ABG pO2 Sodium Carbon Dioxide BUN Glucose POC Glucose Lactic Acid 2.60 H* Calcium AST ALT Alkaline Phosphatase Total Creatine Kinase 510 H CK-MB (CK-2) 4.4 H Troponin T 0.348 H* NT-Pro-B Natriuret Pep 3679 H Albumin Triglycerides 284 H LDL Cholesterol Direct 4 L HDL Cholesterol 7 L Urine WBC (Auto) 36.0 H 11/13/18 11/13/18 11/13/18 14:49 14:52 16:58 WBC RBC Hgb Hct MCV MCH RDW Seg Neuts % (Manual) Lymphocytes % (Manual) Eosinophils % (Manual) Lymphocytes # (Manual) POC ABG pH POC ABG pO2 Sodium Carbon Dioxide BUN Glucose POC Glucose 205 H Lactic Acid 3.90 H* 3.90 H* Calcium AST ALT Alkaline Phosphatase Total Creatine Kinase CK-MB (CK-2) Troponin T NT-Pro-B Natriuret Pep Albumin Triglycerides LDL Cholesterol Direct HDL Cholesterol Urine WBC (Auto) 11/13/18 11/13/18 11/13/18 17:13 19:46 21:34 WBC RBC Hgb Hct MCV MCH RDW Seg Neuts % (Manual) Lymphocytes % (Manual) Eosinophils % (Manual) Lymphocytes # (Manual) POC ABG pH 7.573 H POC ABG pO2 Sodium Carbon Dioxide BUN Glucose POC Glucose Lactic Acid 4.40 H* 4.50 H* Calcium AST ALT Alkaline Phosphatase Total Creatine Kinase CK-MB (CK-2) Troponin T NT-Pro-B Natriuret Pep Albumin Triglycerides LDL Cholesterol Direct HDL Cholesterol Urine WBC (Auto) 11/14/18 11/14/18 11/14/18 05:23 05:46 08:02 WBC RBC Hgb Hct MCV MCH RDW Seg Neuts % (Manual) Lymphocytes % (Manual) Eosinophils % (Manual) Lymphocytes # (Manual) POC ABG pH 7.463 H POC ABG pO2 136 H Sodium Carbon Dioxide BUN Glucose POC Glucose 263 H Lactic Acid 2.70 H* Calcium AST ALT Alkaline Phosphatase Total Creatine Kinase CK-MB (CK-2) Troponin T NT-Pro-B Natriuret Pep Albumin Triglycerides LDL Cholesterol Direct HDL Cholesterol Urine WBC (Auto) - Diagnostic Findings Chest x-ray: report reviewed, image reviewed (mild pulm congestion better than 7/5) Assessment and Plan - Patient Problems (1) Anemia Current Visit: Yes Status: Acute Qualifiers: Anemia type: unspecified type Qualified Code(s): D64.9 - Anemia, unspecifi ed (2) CHF (congestive heart failure) Current Visit: Yes Status: Acute Qualifiers: Heart failure type: unspecified Heart failure chronicity: acute Qualified Code(s): I50.9 - Heart failure, unspecified (3) Fever Current Visit: Yes Status: Acute Qualifiers: Fever type: unspecified Qualified Code(s): R50.9 - Fever, unspecified (4) Hypoxia Current Visit: Yes Status: Acute (5) Pneumonia Current Visit: Yes Status: Acute Qualifiers: Pneumonia type: due to unspecified organism Laterality: right Lung location: middle lobe of lung Qualified Code(s): J18.1 - Lobar pneumonia, unspecified organism (6) Sepsis Current Visit: Yes Status: Acute Qualifiers: Sepsis type: sepsis due to unspecified organism Sepsis acute organ dysfunction status: without acute organ dysfunction Qualified Code(s): A41.9 - Sepsis, unspecified organism (7) Acute and chronic respiratory failure Current Visit: No Status: Acute Qualifiers: Respiratory failure complication: hypoxia Qualified Code(s): J96.21 - Acute and chronic respiratory failure with hypoxia (8) Altered mental state Current Visit: No Status: Acute (9) Hypoxic encephalopathy Current Visit: Yes Status: Acute (10) Hypotension Current Visit: Yes Status: Acute Qualifiers: Hypotension type: unspecified hypotension type Qualified Code(s): I95.9 - Hypotension, unspecified
[2018-11-14] MEDS ORDERED: PNEUMOVAX 23 IM ONE (12:00)
--- NOTE | 2018-11-14 13:45 | Consultation ---
History of Present Illness - Reason for Consult Consult date: 11/14/18 - History of Present Illness 77 yo M PMHx CVA, seizures, HTN, DM2, baseline minimal responsiveness who was admitted to [facility] due to worsening of his respiratory status. He is the resident of a retirement where he is on permanent trach. He was sent here because he was noted to have increase in his vent requirements. He is normally minimally responsive and as such the history is taken from the chart. Afebrile since admission with a slightly low white count. He is currently receiving cefepime and vancomycin. CXR with pulmonary congestion. Hepatitis serologies were checked due to transaminitis and are negative for acute hepatitis. HIV is negative. 11/13 blood cultures and urine culture are NGTD. Sputum cultures were contaminated with epithelial cells and were not cultured. Past History Past Medical History: CAD, hypertension (chronic resp failure, renal insuff, hypoxic encephalopathy), sarcoidosis, other Past Surgical History: Other (trach) Social history: , other (lives in [place]) Family history: hypertension Medications and Allergies Allergies Allergy/AdvReac Type Severity Reaction Status Date / Time No Known Allergies Allergy Verified 08/12/18 21:47 Home Medications Medication Instructions Recorded Confirmed Last Taken Type Amantadine [Symmetrel] 100 mg FEEDTUBE DAILY 08/18/18 11/14/18 08/13/18 History Amlodipine Besylate [Norvasc] 5 mg FEEDTUBE DAILY 08/18/18 11/14/18 08/13/18 History Ascorbic Acid [Vitamin C Oral Liq] 500 mg FEEDTUBE QDAY 08/18/18 11/14/18 08/13/18 History Atorvastatin Calcium [Lipitor] 40 mg FEEDTUBE DAILY 08/18/18 11/14/18 08/13/18 History Bisacodyl [Dulcolax suppos] 10 mg NC QDAY PRN 08/18/18 11/14/18 Unknown History Docusate Sodium [Colace ORAL LIQ] 100 mg FEEDTUBE QDAY PRN 08/18/18 11/14/18 Unknown History Ferrous Sulfate [Ferrous Sulfate 7.5 ml FEEDTUBE DAILY 08/18/18 11/14/18 08/13/18 History 220 MG/5 ML] Glycopyrrolate [Robinul] 2 mg FEEDTUBE Q8H 05/11/14/18 08/13/18 History Insulin Glargine,Hum.rec.anlog 40 unit SQ HS 08/18/18 11/14/18 08/12/18 History [Basaglar Kwikpen U-100] Lacosamide [Vimpat] 1 tab FEEDTUBE Q12HR 08/18/18 11/14/18 Unknown History Acetaminophen 650 mg FEEDTUBE Q12H PRN 09/28/18 11/14/18 Unknown History Aspirin [Aspirin BABY CHEW TAB] 81 mg FEEDTUBE QDAY 09/28/18 11/14/18 Unknown History Benazepril HCl [Lotensin] 10 mg FEEDTUBE QDAY 09/28/18 11/14/18 Unknown History Lispro Insulin [HumaLOG] See Protocol SQ ACHS 09/28/18 11/14/18 Unknown History Tamsulosin [Flomax] 0.4 mg FEEDTUBE QDAY 09/28/18 11/14/18 Unknown History guaiFENesin [Mucus-Chest 200 mg FEEDTUBE Q4H PRN 09/28/18 11/14/18 Unknown History Congestion] Famotidine [Pepcid] 20 mg PO QDAY #30 tablet 10/09/18 11/14/18 Unknown Rx Furosemide [Lasix TAB] 40 mg PO QDAY #30 tablet 10/09/18 11/14/18 Unknown Rx Ipratropium/Albuterol Sulfate 1 ampul IH Q6HRT #90 ampul.neb 10/09/18 11/14/18 Unknown Rx [DUONEB *Not for PRN Use*] Sucralfate [Carafate] 1 gm FEEDTUBE Q8H oral.liqd 10/09/18 11/14/18 Unknown Rx Active Meds: Active Medications Famotidine (Pepcid) 20 mg IV BID LENCHO Last Admin: 11/14/18 10:12 Dose: 20 mg Documented by: Heparin Sodium (Porcine) (Heparin) 5,000 unit SUB-Q Q12HR LENCHO Last Admin: 11/14/18 10:12 Dose: 5,000 unit Documented by: Dobutamine HCl/Dextrose (Dobutrex Drip 500mg/D5w 250ml) 500 mg in 250 mls @ 5.04 mls/hr IV TITR ONE; Protocol Stop: 11/15/18 17:47 Last Titration: 11/13/18 18:17 Dose: 40 mcg/kg/min, 100.8 mls/hr Documented by: Norepinephrine (Levophed Drip 4 Mg/Ns 250 Ml) 4 mg in 250 mls @ 7.5 mls/hr IV TITR LENCHO; Protocol Last Titration: 11/14/18 09:23 Dose: Infused Documented by: Sodium Chloride (Nacl 0.9% 1000 Ml) 1,000 mls @ 125 mls/hr IV DIRECT LENCHO Last Admin: 11/14/18 00:44 Dose: 125 mls/hr Documented by: Dobutamine HCl/Dextrose (Dobutrex Drip 500mg/D5w 250ml) 500 mg in 250 mls @ 50.4 mls/hr IV DIRECT LENCHO; Protocol Last Titration: 11/14/18 09:20 Dose: Infused Documented by: Cefepime HCl (Maxipime/Ns 2 Gm/100 Ml) 2 gm in 100 mls @ 200 mls/hr IV Q8HR LENCHO; Protocol Last Admin: 11/14/18 13:06 Dose: 200 mls/hr Documented by: Vancomycin HCl 1,250 mg/ (Sodium Chloride) 275 mls @ 166.667 mls/hr IV Q24H LENCHO Norepinephrine 8 mg/ Sodium (Chloride) 250 mls @ 3.75 mls/hr IV TITR LENCHO; Pr otocol Last Titration: 11/14/18 12:49 Dose: 8 mcg/min, 15 mls/hr Documented by: Vasopressin 20 unit/ Sodium (Chloride) 101 mls @ 9.09 mls/hr IV TITR LENCHO; Protocol Last Admin: 11/14/18 09:16 Dose: 0.03 units/min, 9.09 mls/hr Documented by: Insulin Human Lispro (Humalog) 0 unit SUB-Q Q6HR LENCHO; Protocol Last Admin: 11/14/18 12:40 Dose: 3 unit Documented by: Review of Systems ROS unobtainable: due to endotracheal tube, due to mental status Physical Examination - Physical Exam Narrative exam: Physical Exam: Constitutional: Non-responsive. No acute distress Head, Ears, Nose: Normocephalic, atraumatic. External ears, nose normal. Intubated Eyes: Conjunctivae/corneas clear. No icterus. No ptosis. Neck: Supple, no meningeal signs Oral: dentition fair, no thrush Cardiovascular: S1, S2 normal. Respiratory: Good air entry, clear to auscultation bilaterally GI: Soft, non-tender; bowel sounds normal. No peritoneal signs. I Musculoskeletal: No pedal edema, no cyanosis. Skin: No rash or abscess Hem/Lymphatic: No palpable cervical or supraclavicular nodes. No lymphangitis Psych: Mood ok. Affect normal Neurological: Intubated, non-responsive. - Constitutional Vitals: Vital Signs Temp Pulse Resp BP Pulse Ox 98.1 F 100 H 2 L 114/55 100 11/14/18 03:39 11/14/18 12:05 11/14/18 12:05 11/14/18 12:05 11/14/18 12:05 Temperature -Last 24 Hours Temperature 98.1 F Temperature 98.4 F Results - Labs CBC & Chem 7: 11/13/18 14:00 11/13/18 14:00 Labs: Abnormal lab results 11/13/18 11/13/18 11/13/18 Range/Units 03:30 14:00 14:00 WBC 3.8 L (4.5-11.0) K/mm3 RBC 2.80 L (3.65-5.03) M/mm3 Hgb 7.4 L (11.8-15.2) gm/dl Hct 22.9 L (35.5-45.6) % MCV 82 L (84-94) fl MCH 27 L (28-32) pg RDW 19.0 H (13.2-15.2) % Seg Neuts % (Manual) 87.0 H (40.0-70.0) % Lymphocytes % (Manual) 5.0 L (13.4-35.0) % Eosinophils % (Manual) 7.0 H (0.0-4.3) % Lymphocytes # (Manual) 0.2 L (1.2-5.4) K/mm3 POC ABG pH (7.35-7.45) POC ABG pO2 (80-105) Sodium 147 H (137-145) mmol/L Carbon Dioxide 33 H (22-30) mmol/L BUN 50 H (9-20) mg/dL Glucose 193 H (75-100) mg/dL POC Glucose (70-105) Lactic Acid 3.70 H* (0.7-2.0) mmol/L Calcium 8.1 L (8.4-10.2) mg/dL AST 154 H (5-40) units/L ALT 134 H (7-56) units/L Alkaline Phosphatase 586 H (35-129) units/L Total Creatine Kinase (55-170) units/L CK-MB (CK-2) (0.0-4.0) ng/mL Troponin T (0.00-0.029) ng/mL NT-Pro-B Natriuret Pep (0-900) pg/mL Albumin 1.2 L (3.9-5) g/dL Triglycerides (2-149) mg/dL LDL Cholesterol Direct (50-130) mg/dL HDL Cholesterol (40-59) mg/dL Urine WBC (Auto) (0.0-6.0) /HPF 11/13/18 11/13/18 11/13/18 Range/Units 14:00 14:44 14:49 WBC (4.5-11.0) K/mm3 RBC (3.65-5.03) M/mm3 Hgb (11.8-15.2) gm/dl Hct (35.5-45.6) % MCV (84-94) fl MCH (28-32) pg RDW (13.2-15.2) % Seg Neuts % (Manual) (40.0-70.0) % Lymphocytes % (Manual) (13.4-35.0) % Eosinophils % (Manual) (0.0-4.3) % Lymphocytes # (Manual) (1.2-5.4) K/mm3 POC ABG pH (7.35-7.45) POC ABG pO2 (80-105) Sodium (137-145) mmol/L Carbon Dioxide (22-30) mmol/L BUN (9-20) mg/dL Glucose (75-100) mg/dL POC Glucose (70-105) Lactic Acid 2.60 H* (0.7-2.0) mmol/L Calcium (8.4-10.2) mg/dL AST (5-40) units/L ALT (7-56) units/L Alkaline Phosphatase (35-129) units/L Total Creatine Kinase 510 H (55-170) units/L CK-MB (CK-2) 4.4 H (0.0-4.0) ng/mL Troponin T 0.348 H* (0.00-0.029) ng/mL NT-Pro-B Natriuret Pep 3679 H (0-900) pg/mL Albumin (3.9-5) g/dL Triglycerides 284 H (2-149) mg/dL LDL Cholesterol Direct 4 L (50-130) mg/dL HDL Cholesterol 7 L (40-59) mg/dL Urine WBC (Auto) 36.0 H (0.0-6.0) /HPF 11/13/18 11/13/18 11/13/18 Range/Units 14:49 14:52 16:58 WBC (4.5-11.0) K/mm3 RBC (3.65-5.03) M/mm3 Hgb (11.8-15.2) gm/dl Hct (35.5-45.6) % MCV (84-94) fl MCH (28-32) pg RDW (13.2-15.2) % Seg Neuts % (Manual) (40.0-70.0) % Lymphocytes % (Manual) (13.4-35.0) % Eosinophils % (Manual) (0.0-4.3) % Lymphocytes # (Manual) (1.2-5.4) K/mm3 POC ABG pH (7.35-7.45) POC ABG pO2 (80-105) Sodium (137-145) mmol/L Carbon Dioxide (22-30) mmol/L BUN (9-20) mg/dL Glucose (75-100) mg/dL POC Glucose 205 H (70-105) Lactic Acid 3.90 H* 3.90 H* (0.7-2.0) mmol/L Calcium (8.4-10.2) mg/dL AST (5-40) units/L ALT (7-56) units/L Alkaline Phosphatase (35-129) units/L Total Creatine Kinase (55-170) units/L CK-MB (CK-2) (0.0-4.0) ng/mL Troponin T (0.00-0.029) ng/mL NT-Pro-B Natriuret Pep (0-900) pg/mL Albumin (3.9-5) g/dL Triglycerides (2-149) mg/dL LDL Cholesterol Direct (50-130) mg/dL HDL Cholesterol (40-59) mg/dL Urine WBC (Auto) (0.0-6.0) /HPF 11/13/18 11/13/18 11/13/18 Range/Units 17:13 19:46 21:34 WBC (4.5-11.0) K/mm3 RBC (3.65-5.03) M/mm3 Hgb (11.8-15.2) gm/dl Hct (35.5-45.6) % MCV (84-94) fl MCH (28-32) pg RDW (13.2-15.2) % Seg Neuts % (Manual) (40.0-70.0) % Lymphocytes % (Manual) (13.4-35.0) % Eosinophils % (Manual) (0.0-4.3) % Lymphocytes # (Manual) (1.2-5.4) K/mm3 POC ABG pH 7.573 H (7.35-7.45) POC ABG pO2 (80-105) Sodium (137-145) mmol/L Carbon Dioxide (22-30) mmol/L BUN (9-20) mg/dL Glucose (75-100) mg/dL POC Glucose (70-105) Lactic Acid 4.40 H* 4.50 H* (0.7-2.0) mmol/L Calcium (8.4-10.2) mg/dL AST (5-40) units/L ALT (7-56) units/L Alkaline Phosphatase (35-129) units/L Total Creatine Kinase (55-170) units/L CK-MB (CK-2) (0.0-4.0) ng/mL Troponin T (0.00-0.029) ng/mL NT-Pro-B Natriuret Pep (0-900) pg/mL Albumin (3.9-5) g/dL Triglycerides (2-149) mg/dL LDL Cholesterol Direct (50-130) mg/dL HDL Cholesterol (40-59) mg/dL Urine WBC (Auto) (0.0-6.0) /HPF 11/14/18 11/14/18 11/14/18 Range/Units 05:23 05:46 08:02 WBC (4.5-11.0) K/mm3 RBC (3.65-5.03) M/mm3 Hgb (11.8-15.2) gm/dl Hct (35.5-45.6) % MCV (84-94) fl MCH (28-32) pg RDW (13.2-15.2) % Seg Neuts % (Manual) (40.0-70.0) % Lymphocytes % (Manual) (13.4-35.0) % Eosinophils % (Manual) (0.0-4.3) % Lymphocytes # (Manual) (1.2-5.4) K/mm3 POC ABG pH 7.463 H (7.35-7.45) POC ABG pO2 136 H (80-105) Sodium (137-145) mmol/L Carbon Dioxide (22-30) mmol/L BUN (9-20) mg/dL Glucose (75-100) mg/dL POC Glucose 263 H (70-105) Lactic Acid 2.70 H* (0.7-2.0) mmol/L Calcium (8.4-10.2) mg/dL AST (5-40) units/L ALT (7-56) units/L Alkaline Phosphatase (35-129) units/L Total Creatine Kinase (55-170) units/L CK-MB (CK-2) (0.0-4.0) ng/mL Troponin T (0.00-0.029) ng/mL NT-Pro-B Natriuret Pep (0-900) pg/mL Albumin (3.9-5) g/dL Triglycerides (2-149) mg/dL LDL Cholesterol Direct (50-130) mg/dL HDL Cholesterol (40-59) mg/dL Urine WBC (Auto) (0.0-6.0) /HPF 11/14/18 Range/Units 12:42 WBC (4.5-11.0) K/mm3 RBC (3.65-5.03) M/mm3 Hgb (11.8-15.2) gm/dl Hct (35.5-45.6) % MCV (84-94) fl MCH (28-32) pg RDW (13.2-15.2) % Seg Neuts % (Manual) (40.0-70.0) % Lymphocytes % (Manual) (13.4-35.0) % Eosinophils % (Manual) (0.0-4.3) % Lymphocytes # (Manual) (1.2-5.4) K/mm3 POC ABG pH (7.35-7.45) POC ABG pO2 (80-105) Sodium (137-145) mmol/L Carbon Dioxide (22-30) mmol/L BUN (9-20) mg/dL Glucose (75-100) mg/dL POC Glucose 213 H (70-105) Lactic Acid (0.7-2.0) mmol/L Calcium (8.4-10.2) mg/dL AST (5-40) units/L ALT (7-56) units/L Alkaline Phosphatase (35-129) units/L Total Creatine Kinase (55-170) units/L CK-MB (CK-2) (0.0-4.0) ng/mL Troponin T (0.00-0.029) ng/mL NT-Pro-B Natriuret Pep (0-900) pg/mL Albumin (3.9-5) g/dL Triglycerides (2-149) mg/dL LDL Cholesterol Direct (50-130) mg/dL HDL Cholesterol (40-59) mg/dL Urine WBC (Auto) (0.0-6.0) /HPF - Imaging and Cardiology Chest x-ray: image reviewed Assessment and Plan Cultures: 11/13 BCx - NGTD 11/13 UCx - NGTD 11/13 Sputum Cx - not run due to contamination A/P: 77 yo M PMHx CVA, seizures, HTN, DM2 admitted for worsenign respiratory status. 1. Acute on chronic respiratory failure - CXR with congestion, he is afebrile and no leukocytosis. I don't see any sign of acute pneumonia at the present time. There were no secretions in the tube. If he is producing any secretions I would send for a repeat sputum culture. 2. Pyuria - pending urine cultures. Would continue cefepime for now and stop vancomycin. Follow up cultures 3. DM2 4. HTN 5. Hx of CVA Recs: -stop vancomycin -continue cefepime 2g q8h. - follow up blood and urine cultures. Darcy Noonan MD [facility] ([facility] M: [phone] O: [phone] F: [phone]
[2018-11-14] MEDS ORDERED: SODIUM BICARBONATE FEEDTUBE PRN (14:20)
[2018-11-14] MEDS ORDERED: PANCREAZE DR 10,500 UNIT FEEDTUBE PRN (14:20)
[2018-11-14] MEDS ORDERED: SIMPLE SYRUP FEEDTUBE PRN ×2 (14:20)
[2018-11-14 15:11] LABS: Hemoglobin 6.1 gm/dl (11.8-15.2); Mean Corpuscular HGB Conc 31 % (32-34); Mean Corpuscular Volume 83 fl (84-94); Platelet Count 189 K/mm3 (140-440); Red Blood Count 2.36 M/mm3 (3.65-5.03); Red Cell Distribution Width 19.4 % (13.2-15.2)
[2018-11-14 15:30] LABS: BUN/Creatinine Ratio 47; Blood Urea Nitrogen 56 mg/dL (9-20); Calcium 7.6 mg/dL (8.4-10.2); Hemolysis Index 1
[2018-11-14 15:34] LABS: Hematocrit 19.6 % (35.5-45.6)
[2018-11-14] MEDS: VANCOMYCIN 1,250 MG in NACL 0.9% 250ML 250 ML IV SCH (16:06)
[2018-11-14 16:19] LABS: Hemoglobin 6.1 gm/dl (11.8-15.2); Mean Corpuscular HGB Conc 31 % (32-34); Mean Corpuscular Volume 82 fl (84-94); Platelet Count 178 K/mm3 (140-440); Red Blood Count 2.36 M/mm3 (3.65-5.03); Red Cell Distribution Width 19.3 % (13.2-15.2)
[2018-11-14 16:33] LABS: Hematocrit 19.4 % (35.5-45.6)
[2018-11-14] MEDS ORDERED: NACL 0.9% 500 ML 500 ML IV ONE (16:40)
[2018-11-15] MEDS: NACL 0.9% 1000 ML 1,000 ML IV SCH ×3 (03:52→22:54)
[2018-11-15] MEDS: LEVOPHED 8 MG in NACL 0.9% 250ML 242 ML IV SCH (03:53)
[2018-11-15 04:58] LABS: ABG Base Excess 1.2 mmol/L (-2.0-3.0); ABG HCO3 25.2 mmol/L (20.0-26.0); ABG Methemoglobin 0.5 % (0.0-1.5); ABG Oxygen Saturation 98.4 % (95.0-99.0); ABG PCO2 37.3 mm Hg; ABG PH 7.447 pH Units (7.350-7.450); ABG PO2 120.8 mm Hg (80.0-90.0)
[2018-11-15 05:28] LABS: Hematocrit 26.8 % (35.5-45.6); Hemoglobin 8.8 gm/dl (11.8-15.2); Mean Corpuscular HGB Conc 33 % (32-34); Mean Corpuscular Volume 83 fl (84-94); Platelet Count 178 K/mm3 (140-440); Red Blood Count 3.22 M/mm3 (3.65-5.03); Red Cell Distribution Width 16.8 % (13.2-15.2)
[2018-11-15] MEDS: MAXIPIME/NS 2 GM/100 ML 2 GM/100 ML BAG IV SCH ×2 (05:32→14:07)
[2018-11-15] MEDS: HumaLOG SUB-Q SCH ×3 (06:25→18:32)
[2018-11-15 06:46] LABS: BUN/Creatinine Ratio 51; Blood Urea Nitrogen 51 mg/dL (9-20); Calcium 7.8 mg/dL (8.4-10.2); Hemolysis Index 1
--- NOTE | 2018-11-15 09:27 | Progress Note ---
Assessment and Plan Assessment and plan: Acute on chronic resp failure Admitted to ICU Patient had previous tracheostomy Trach to ventilator Pulmonology followi Severe Sepsis with septic shock Still on Levophed, Off Dobutamine titrate to keep MAP>65 Cont Cefepime Blood cultures Enterococcus species 4 of 4 bottles ID Physician following Diabetes mellitus type 2 Fingerstick q4h Anemia s/p 2 Units PRBC stool occult blood neg Hypertension by history. Currently hypotensive History of chronic hypoxic encephalopathy Hyperlipidemia Full code status Discussed with at bedside. The high probability of a clinically significant, sudden or life threatening deterioration of the [4] system(s) required my full and direct attention, inter vention and personal management. The aggregate critical care time was [34] minutes. This time is in addition to time spent performing reported procedures but includes the following: [x] Data Review and interpretation [x] Patient assessment and monitoring of vital signs [x] Documentation [x] Medication orders and management History Interval history: patient with sepsis,septic shock,acute on chronic resp failure Still on Levophed Hospitalist Physical - Physical exam Narrative exam: Gen: Not in acute distress, lying in bed, HEENT: Normocephalic, atraumatic, tracheostomy to vent Neck: supple, no JVD,trach Heart: S1 and S2 reg, no murmurs, rubs or gallop Lungs: Clear, no crackles, no rhonchi Abd: soft, non tender, non distended, normal BS, PEG tube Ext: No edema, no clubbing, no cyanosis Neuro: Does not follow commands - Constitutional Vitals: Temp Pulse Resp BP Pulse Ox 97.6 F 72 12 101/56 100 11/15/18 08:00 11/15/18 08:45 11/15/18 08:45 11/15/18 08:45 11/15/18 08:45 Results - Labs CBC & Chem 7: 11/15/18 05:10 11/15/18 05:10 Labs: Laboratory Last Values WBC 16.2 K/mm3 (4.5-11.0) H 11/15/18 05:10 RBC 3.22 M/mm3 (3.65-5.03) L 11/15/18 05:10 Hgb 8.8 gm/dl (11.8-15.2) L 11/15/18 05:10 Hct 26.8 % (35.5-45.6) L D 11/15/18 05:10 MCV 83 fl (84-94) L 11/15/18 05:10 MCH 27 pg (28-32) L 11/15/18 05:10 MCHC 33 % (32-34) 11/15/18 05:10 RDW 16.8 % (13.2-15.2) H 11/15/18 05:10 Plt Count 178 K/mm3 (140-440) 11/15/18 05:10 Add Manual Diff Complete 11/13/18 14:00 Total Counted 100 11/13/18 14:00 Seg Neuts % (Manual) 87.0 % (40.0-70.0) H 11/13/18 14:00 0 % 11/13/18 14:00 5.0 % (13.4-35.0) L 11/13/18 14:00 Reactive Lymphs % (Man) 0 % 11/13/18 14:00 1.0 % (0.0-7.3) 11/13/18 14:00 7.0 % (0.0-4.3) H 11/13/18 14:00 0 % (0.0-1.8) 11/13/18 14:00 0 % 11/13/18 14:00 0 % 11/13/18 14:00 0 % 11/13/18 14:00 0 % 11/13/18 14:00 Nucleated RBC % Not Reportable 11/13/18 14:00 Seg Neutrophils # Man 3.3 K/mm3 (1.8-7.7) 11/13/18 14:00 Band Neutrophils # 0.0 K/mm3 11/13/18 14:00 0.2 K/mm3 (1.2-5.4) L 11/13/18 14:00 Abs React Lymphs (Man) 0.0 K/mm3 11/13/18 14:00 0.0 K/mm3 (0.0-0.8) 11/13/18 14:00 0.3 K/mm3 (0.0-0.4) 11/13/18 14:00 0.0 K/mm3 (0.0-0.1) 11/13/18 14:00 0.0 K/mm3 11/13/18 14:00 0.0 K/mm3 11/13/18 14:00 0.0 K/mm3 11/13/18 14:00 Blast Cells # 0.0 K/mm3 11/13/18 14:00 WBC Morphology Not Reportable 11/13/18 14:00 Hypersegmented Neuts Not Reportable 11/13/18 14:00 Hyposegmented Neuts Not Reportable 11/13/18 14:00 Hypogranular Neuts Not Reportable 11/13/18 14:00 Not Reportable 11/13/18 14:00 Not Reportable 11/13/18 14:00 Not Reportable 11/13/18 14:00 Not Reportable 11/13/18 14:00 Not Reportable 11/13/18 14:00 Not Reportable 11/13/18 14:00 Consistent w auto 11/13/18 14:00 Not Reportable 11/13/18 14:00 Plt Clumps, EDTA Not Reportable 11/13/18 14:00 Not Reportable 11/13/18 14:00 Not Reportable 11/13/18 14:00 Not Reportable 11/13/18 14:00 Plt Morphology Comment Not Reportable 11/13/18 14:00 RBC Morphology Not Reportable 11/13/18 14:00 Dimorphic RBCs Not Reportable 11/13/18 14:00 Few 11/13/18 14:00 Not Reportable 11/13/18 14:00 Few 11/13/18 14:00 1+ 11/13/18 14:00 Not Reportable 11/13/18 14:00 Not Reportable 11/13/18 14:00 Few 11/13/18 14:00 Not Reportable 11/13/18 14:00 Not Reportable 11/13/18 14:00 Not Reportable 11/13/18 14:00 Not Reportable 11/13/18 14:00 Not Reportable 11/13/18 14:00 Not Reportable 11/13/18 14:00 Not Reportable 11/13/18 14:00 Not Reportable 11/13/18 14:00 Not Reportable 11/13/18 14:00 Not Reportable 11/13/18 14:00 Not Reportable 11/13/18 14:00 Not Reportable 11/13/18 14:00 Acanthocytes (Spur) Not Reportable 11/13/18 14:00 Rouleaux Not Reportable 11/13/18 14:00 Not Reportable 11/13/18 14:00 Not Reportable 11/13/18 14:00 Not Reportable 11/13/18 14:00 Not Reportable 11/13/18 14:00 Hem Pathologist Commnt No 11/13/18 14:00 POC ABG pH 7.463 (7.35-7.45) H 11/14/18 05:46 ABG pH 7.447 pH Units (7.350-7.450) 11/14/18 04:50 POC ABG pCO2 38.3 (35-45) 11/14/18 05:46 ABG pCO2 37.3 mm Hg 11/14/18 04:50 POC ABG pO2 136 (80-105) H 11/14/18 05:46 ABG pO2 120.8 mm Hg (80.0-90.0) H 11/14/18 04:50 POC ABG HCO3 27.4 (22-26 mml/L) 11/14/18 05:46 ABG HCO3 25.2 mmol/L (20.0-26.0) 11/14/18 04:50 POC ABG Total CO2 29 (23-27mmol/L) 11/14/18 05:46 POC ABG O2 Sat 99 11/14/18 05:46 ABG O2 Saturation 98.4 % (95.0-99.0) 11/14/18 04:50 ABG O2 Content 14.9 (0.0-44) 11/14/18 04:50 POC ABG Base Excess 4 ((-2) - (+3)mmol/L) 11/14/18 05:46 ABG Base Excess 1.2 mmol/L (-2.0-3.0) 11/14/18 04:50 ABG Hemoglobin 10.9 gm/dl (14.0-18.0) L 11/14/18 04:50 ABG Carboxyhemoglobin 1.7 % (0.0-5.0) 11/14/18 04:50 ABG Methemoglobin 0.5 % (0.0-1.5) 11/14/18 04:50 96.2 % (95.0-99.0) 11/14/18 04:50 45 % 11/14/18 05:46 Sodium 148 mmol/L (137-145) H 11/15/18 05:10 Potassium 3.5 mmol/L (3.6-5.0) L 11/15/18 05:10 Chloride 112.8 mmol/L (98-107) H 11/15/18 05:10 Carbon Dioxide 24 mmol/L (22-30) 11/15/18 05:10 15 mmol/L 11/15/18 05:10 BUN 51 mg/dL (9-20) H 11/15/18 05:10 1.0 mg/dL (0.8-1.5) 11/15/18 05:10 Estimated GFR > 60 ml/min 11/15/18 05:10 51 % 11/15/18 05:10 Glucose 154 mg/dL (75-100) H 11/15/18 05:10 POC Glucose 143 (70-105) H 11/15/18 05:36 Lactic Acid 1.60 mmol/L (0.7-2.0) 11/14/18 12:50 Calcium 7.8 mg/dL (8.4-10.2) L 11/15/18 05:10 0.70 mg/dL (0.1-1.2) 11/13/18 14:00 AST 154 units/L (5-40) H 11/13/18 14:00 ALT 134 units/L (7-56) H 11/13/18 14:00 586 units/L (35-129) H 11/13/18 14:00 510 units/L (55-170) H 11/13/18 14:49 CK-MB (CK-2) 4.4 ng/mL (0.0-4.0) H 11/13/18 14:49 CK-MB (CK-2) Rel Index 0.8 (0-4) 11/13/18 14:49 0.348 ng/mL (0.00-0.029) H* 11/13/18 14:49 NT-Pro-B Natriuret Pep 3679 pg/mL (0-900) H 11/13/18 14:49 6.8 g/dL (6.3-8.2) 11/13/18 14:00 1.2 g/dL (3.9-5) L 11/13/18 14:00 0.2 % 11/13/18 14:00 Triglycerides 284 mg/dL (2-149) H 11/13/18 14:49 Cholesterol 56 mg/dL (50-199) 11/13/18 14:49 4 mg/dL (50-130) L 11/13/18 14:49 7 mg/dL (40-59) L 11/13/18 14:49 8.00 % 11/13/18 14:49 Yellow (Yellow) 11/13/18 14:44 Slightly-cloudy (Clear) 11/13/18 14:44 6.0 (5.0-7.0) 11/13/18 14:44 Ur Specific [place] 1.017 (1.003-1.030) 11/13/18 14:44 30 mg/dl mg/dL (Negative) 11/13/18 14:44 Neg mg/dL (Negative) 11/13/18 14:44 Neg mg/dL (Negative) 11/13/18 14:44 Neg (Negative) 11/13/18 14:44 Neg (Negative) 11/13/18 14:44 Neg (Negative) 11/13/18 14:44 4.0 mg/dL (<2.0) 11/13/18 14:44 Ur Leukocyte Esterase Mod (Negative) 11/13/18 14:44 36.0 /HPF (0.0-6.0) H 11/13/18 14:44 21.0 /HPF (0.0-6.0) 11/13/18 14:44 1+ /HPF (Negative) 11/13/18 14:44 Few /HPF 11/13/18 14:44 3+ /HPF 11/13/18 14:44 Hepatitis A IgM Ab Non-reactive (NonReactive) 11/14/18 02:00 Hep Bs Antigen Non-reactive (Negative) 11/14/18 02:00 Hep B Core IgM Ab Non-reactive (NonReactive) 11/14/18 02:00 Non-reactive (NonReactive) 11/14/18 02:00 HIV 1&2 Antibody Rapid Non react (Non React) 11/14/18 02:00 Non react (Non React) 11/14/18 02:00 Blood Type O POSITIVE 11/13/18 14:49 Antibody Screen Negative 11/13/18 14:49 Crossmatch See Detail 11/13/18 14:49 Active Medications - Current Medications Current Medications: Generic Name Dose Route Start Last Admin Trade Name Freq PRN Reason Stop Dose Admin Lipase/Protease/Amylase 1 each 11/14/18 14:[address] 10,500 Unit FEEDTUBE PRN PRN For Clogged Feeding Tube Famotidine 20 mg 11/14/18 10:00 11/14/18 22:21 Pepcid IV 20 mg BID LENCHO Administration Heparin Sodium (Porcine) 5,000 unit 11/14/18 03:30 11/14/18 22:21 Heparin SUB-Q 5,000 unit Q12HR LENCHO Administration Sodium Chloride 1,000 mls @ 125 mls/hr 11/14/18 00:15 11/15/18 03:52 Nacl 0.9% 1000 Ml IV 125 mls/hr DIRECT LENCHO Administration Dobutamine HCl/Dextrose 500 mg in 250 mls @ 50.4 mls/hr 11/14/18 00:00 11/14/18 09:20 Dobutrex Drip 500mg/D5w 250ml IV Infused DIRECT LENCHO Titration Protocol 20 MCG/KG/MIN Cefepime HCl 2 gm in 100 mls @ 200 mls/hr 11/14/18 04:00 11/15/18 05:32 Maxipime/Ns 2 Gm/100 Ml IV 200 mls/hr Q8HR LENCHO Administration Protocol Vancomycin HCl 1,250 mg/ 275 mls @ 166.667 mls/hr 11/14/18 17:00 11/14/18 16:06 Sodium Chloride IV 166.667 mls/hr Q24H LENCHO Administration Norepinephrine 8 mg/ Sodium 250 mls @ 3.75 mls/hr 11/14/18 09:00 11/15/18 07:33 Chloride IV 1 mcg/min TITR LENCHO 1.875 mls/hr Titration Protocol 2 MCG/MIN Vasopressin 20 unit/ Sodium 101 mls @ 9.09 mls/hr 11/14/18 09:00 11/15/18 04:05 Chloride IV 0 units/min TITR LENCHO 0 mls/hr Titration Protocol 0.03 UNITS/MIN Insulin Human Lispro 0 unit 11/14/18 06:00 11/15/18 06:25 Humalog SUB-Q Not Given Q6HR LENCHO Protocol Pantoprazole Sodium 40 mg 11/15/18 09:00 Protonix IV QDAY LENCHO Simple Syrup 15 ml 11/14/18 14:20 Simple Syrup FEEDTUBE PRN PRN Hypoglycemia Simple Syrup 30 ml 11/14/18 14:20 Simple Syrup FEEDTUBE PRN PRN Hypoglycemia Sodium Bicarbonate 325 mg 11/14/18 14:20 Sodium Bicarbonate FEEDTUBE PRN PRN For Clogged Feeding Tube Nutrition/Malnutrition Assess - Dietary Evaluation Nutrition/Malnutrition Findings: Nutrition Notes Start: 11/14/18 10:33 Freq: Status: Active Protocol: Document 11/14/18 10:33 CASSI (Rec: 11/14/18 10:41 INSO [email or web address]) Nutrition Notes Need for Assessment generated from: 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 Pt screened for malnutrition risk (wt loss, poor appetite), skin risk (Minor score: 8), hx of receiving NTR support, chewing difficulty, and new onset of DM. Pt is intubated and on vent support. Pt from [place] and has PEG and trach in place. Burn Absent Trauma Absent #1 Nutrition Diagnosis Inadequate oral intake Etiology [facility] ventilation As Evidenced by Signs and Symptoms pt NPO Is patient on ventilator? Yes Is Patient Ambulatory and/or Out of Bed No [facility] [phone] Calculation Used for Recommendations [facility] Additional Notes Pro needs 1.2-2g/k-168g/ day Fluid needs 1ml/kcal Nutrition Intervention Nutrition Support: Vital AF 1.2 at 60ml/hr with 100ml water flush q4h. Kcal 1,728 Protein (gm) 108 Carbohydrates (gm) 159 Fat (gm) 78 Fluid (mL) 1,168 Fiber (gm) 7 Goal #1 TF tolerance Goal #2 TF (at goal rate) to meet at least 75% energy and pro needs Anticipated Discharge Needs: Continue TF Follow-Up By: 11/16/18 Additional Comments F/U: new TF, vent status
[2018-11-15] MEDS: HEPARIN SUB-Q SCH ×2 (10:06→22:02)
[2018-11-15] MEDS: PEPCID IV SCH (10:06)
[2018-11-15] MEDS: PROTONIX IV SCH ×2 (10:06→10:25)
--- NOTE | 2018-11-15 10:38 | Progress Note ---
Assessment and Plan - Patient Problems (1) Anemia Current Visit: Yes Status: Acute Qualifiers: Anemia type: unspecified type Qualified Code(s): D64.9 - Anemia, unspecified (2) CHF (congestive heart failure) Current Visit: Yes Status: Acute Qualifiers: Heart failure type: unspecified Heart failure chronicity: acute Qualified Code(s): I50.9 - Heart failure, unspecified (3) Fever Current Visit: Yes Status: Acute Qualifiers: Fever type: unspecified Qualified Code(s): R50.9 - Fever, unspecified (4) Hypoxia Current Visit: Yes Status: Acute (5) Pneumonia Current Visit: Yes Status: Acute Qualifiers: Pneumonia type: due to unspecified organism Laterality: right Lung location: middle lobe of lung Qualified Code(s): J18.1 - Lobar pneumonia, unspecified organism (6) Sepsis Current Visit: Yes Status: Acute Qualifiers: Sepsis type: sepsis due to unspecified organism Sepsis acute organ dysfunction status: without acute organ dysfunction Qualified Code(s): A41.9 - Sepsis, unspecified organism (7) Acute and chronic respiratory failure Current Visit: No Status: Acute Qualifiers: Respiratory failure complication: hypoxia Qualified Code(s): J96.21 - Acute and chronic respiratory failure with hypoxia (8) Altered mental state Current Visit: No Status: Chronic (9) Hypoxic encephalopathy Current Visit: Yes Status: Acute (10) Hypotension Current Visit: Yes Status: Acute Qualifiers: Hypotension type: hypotension due to hypovolemia Qualified Code(s): I95.89 - Other hypotension; E86.1 - Hypovolemia Subjective Interval history: pt on vent still on pressors and IVF at bedside Objective Vital Signs - 12hr 11/14/18 11/14/18 11/14/18 22:45 23:00 23:16 Temperature Pulse Rate 83 83 84 Pulse Rate [ From Monitor] Respiratory 14 13 16 Rate Blood Pressure 149/111 149/111 142/65 O2 Sat by Pulse 100 100 Oximetry 11/14/18 11/14/18 11/15/18 23:30 23:46 00:00 Temperature 100.5 F H Pulse Rate 84 80 83 Pulse Rate [ 79 From Monitor] Respiratory 18 17 2 L Rate Blood Pressure 140/65 131/59 130/57 O2 Sat by Pulse 100 100 100 Oximetry 11/15/18 11/15/18 11/15/18 00:16 00:30 00:46 Temperature Pulse Rate 79 76 72 Pulse Rate [ From Monitor] Respiratory 12 12 14 Rate Blood Pressure 134/59 132/57 127/49 O2 Sat by Pulse 100 100 100 Oximetry 11/15/18 11/15/18 11/15/18 01:00 01:16 01:30 Temperature Pulse Rate 75 78 75 Pulse Rate [ From Monitor] Respiratory 14 13 14 Rate Blood Pressure 127/49 114/51 110/50 O2 Sat by Pulse 100 100 Oximetry 11/15/18 11/15/18 11/15/18 01:45 02:00 02:16 Temperature Pulse Rate 75 74 76 Pulse Rate [ From Monitor] Respiratory 13 14 13 Rate Blood Pressure 116/50 105/49 115/51 O2 Sat by Pulse 100 100 100 Oximetry 11/15/18 11/15/18 11/15/18 02:30 02:46 03:00 Temperature Pulse Rate 74 74 78 Pulse Rate [ From Monitor] Respiratory 12 12 12 Rate Blood Pressure 107/51 116/51 129/82 O2 Sat by Pulse 100 100 100 Oximetry 11/15/18 11/15/18 11/15/18 03:16 03:25 03:30 Temperature 98.7 F Pulse Rate 77 76 Pulse Rate [ From Monitor] Respiratory 14 14 Rate Blood Pressure 127/58 127/58 O2 Sat by Pulse 100 Oximetry 11/15/18 11/15/18 11/15/18 03:46 04:00 04:16 Temperature Pulse Rate 76 84 77 Pulse Rate [ 77 From Monitor] Respiratory 14 2 L 13 Rate Blood Pressure 107/54 123/60 122/54 O2 Sat by Pulse 100 100 100 Oximetry 11/15/18 11/15/18 11/15/18 04:30 04:46 05:00 Temperature Pulse Rate 77 76 78 Pulse Rate [ From Monitor] Respiratory 12 15 15 Rate Blood Pressure 118/56 111/51 117/59 O2 Sat by Pulse 100 100 100 Oximetry 11/15/18 11/15/18 11/15/18 05:16 05:30 05:46 Temperature Pulse Rate 78 75 78 Pulse Rate [ From Monitor] Respiratory 12 11 L 12 Rate Blood Pressure 129/57 125/53 120/56 O2 Sat by Pulse 100 100 100 Oximetry 11/15/18 11/15/18 11/15/18 06:00 06:16 06:30 Temperature Pulse Rate 78 76 73 Pulse Rate [ From Monitor] Respiratory 17 13 12 Rate Blood Pressure 124/56 109/52 110/49 O2 Sat by Pulse 98 100 99 Oximetry 11/15/18 11/15/18 11/15/18 06:46 07:00 07:16 Temperature Pulse Rate 75 71 74 Pulse Rate [ From Monitor] Respiratory 12 13 13 Rate Blood Pressure 116/55 108/51 108/51 O2 Sat by Pulse 100 100 100 Oximetry 11/15/18 11/15/18 11/15/18 07:30 07:45 08:00 Temperature 97.6 F Pulse Rate 71 73 73 Pulse Rate [ 73 From Monitor] Respiratory 13 15 15 Rate Blood Pressure 107/53 116/56 105/53 O2 Sat by Pulse 100 98 Oximetry 11/15/18 11/15/18 11/15/18 08:15 08:30 08:31 Temperature Pulse Rate 73 72 72 Pulse Rate [ From Monitor] Respiratory 13 13 Rate Blood Pressure 105/53 105/60 105/60 O2 Sat by Pulse 100 100 Oximetry 11/15/18 11/15/18 11/15/18 08:45 09:00 09:15 Temperature Pulse Rate 72 74 75 Pulse Rate [ From Monitor] Respiratory 12 12 15 Rate Blood Pressure 101/56 116/59 116/59 O2 Sat by Pulse 100 100 Oximetry 11/15/18 11/15/18 11/15/18 09:31 09:45 10:01 Temperature Pulse Rate 74 73 76 Pulse Rate [ From Monitor] Respiratory 14 12 14 Rate Blood Pressure 129/62 117/57 124/60 O2 Sat by Pulse 100 100 Oximetry 11/15/18 10:15 Temperature Pulse Rate 75 Pulse Rate [ From Monitor] Respiratory 11 L Rate Blood Pressure 120/55 O2 Sat by Pulse 100 Oximetry Constitutional: no acute distress, other (on vent, trach in place) Eyes: non-icteric ENT: oropharynx moist Neck: supple Effort: normal Ascultation: Bilateral: diminished breath sounds Cardiovascular: regular rate and rhythm Gastrointestinal: normoactive bowel sounds, soft, non-distended, other (PEG in place) Extremities: no cyanosis Neurologic: unable to assess (on vent), other (on vent) Psychiatric: other (unable to assess) CBC and BMP: 11/15/18 05:10 11/15/18 05:10 ABG, PT/INR, D-dimer: ABG POC ABG pH 7.463 (7.35-7.45) H 11/14/18 05:46 ABG pH 7.447 pH Units (7.350-7.450) 11/14/18 04:50 POC ABG pCO2 38.3 (35-45) 11/14/18 05:46 ABG pCO2 37.3 mm Hg 11/14/18 04:50 POC ABG pO2 136 (80-105) H 11/14/18 05:46 ABG pO2 120.8 mm Hg (80.0-90.0) H 11/14/18 04:50 POC ABG HCO3 27.4 (22-26 mml/L) 11/14/18 05:46 POC ABG Total CO2 29 (23-27mmol/L) 11/14/18 05:46 POC ABG O2 Sat 99 11/14/18 05:46 ABG O2 Saturation 98.4 % (95.0-99.0) 11/14/18 04:50 Abnormal lab findings: Abnormal Labs 11/13/18 11/13/18 11/13/18 03:30 14:00 14:00 WBC 3.8 L RBC 2.80 L Hgb 7.4 L Hct 22.9 L MCV 82 L MCH 27 L MCHC RDW 19.0 H Seg Neuts % (Manual) 87.0 H Lymphocytes % (Manual) 5.0 L Eosinophils % (Manual) 7.0 H Lymphocytes # (Manual) 0.2 L POC ABG pH POC ABG pO2 ABG pO2 ABG Hemoglobin Sodium 147 H Potassium Chloride Carbon Dioxide 33 H BUN 50 H Glucose 193 H POC Glucose Lactic Acid 3.70 H* Calcium 8.1 L AST 154 H ALT 134 H Alkaline Phosphatase 586 H Total Creatine Kinase CK-MB (CK-2) Troponin T NT-Pro-B Natriuret Pep Albumin 1.2 L Triglycerides LDL Cholesterol Direct HDL Cholesterol Urine WBC (Auto) Crossmatch 11/13/18 11/13/18 11/13/18 14:00 14:44 14:49 WBC RBC Hgb Hct MCV MCH MCHC RDW Seg Neuts % (Manual) Lymphocytes % (Manual) Eosinophils % (Manual) Lymphocytes # (Manual) POC ABG pH POC ABG pO2 ABG pO2 ABG Hemoglobin Sodium Potassium Chloride Carbon Dioxide BUN Glucose POC Glucose Lactic Acid 2.60 H* Calcium AST ALT Alkaline Phosphatase Total Creatine Kinase 510 H CK-MB (CK-2) 4.4 H Troponin T 0.348 H* NT-Pro-B Natriuret Pep 3679 H Albumin Triglycerides 284 H LDL Cholesterol Direct 4 L HDL Cholesterol 7 L Urine WBC (Auto) 36.0 H Crossmatch 11/13/18 11/13/18 11/13/18 14:49 14:49 14:52 WBC RBC Hgb Hct MCV MCH MCHC RDW Seg Neuts % (Manual) Lymphocytes % (Manual) Eosinophils % (Manual) Lymphocytes # (Manual) POC ABG pH POC ABG pO2 ABG pO2 ABG Hemoglobin Sodium Potassium Chloride Carbon Dioxide BUN Glucose POC Glucose 205 H Lactic Acid 3.90 H* Calcium AST ALT Alkaline Phosphatase Total Creatine Kinase CK-MB (CK-2) Troponin T NT-Pro-B Natriuret Pep Albumin Triglycerides LDL Cholesterol Direct HDL Cholesterol Urine WBC (Auto) Crossmatch See Detail 11/13/18 11/13/18 11/13/18 16:58 17:13 19:46 WBC RBC Hgb Hct MCV MCH MCHC RDW Seg Neuts % (Manual) Lymphocytes % (Manual) Eosinophils % (Manual) Lymphocytes # (Manual) POC ABG pH 7.573 H POC ABG pO2 ABG pO2 ABG Hemoglobin Sodium Potassium Chloride Carbon Dioxide BUN Glucose POC Glucose Lactic Acid 3.90 H* 4.40 H* Calcium AST ALT Alkaline Phosphatase Total Creatine Kinase CK-MB (CK-2) Troponin T NT-Pro-B Natriuret Pep Albumin Triglycerides LDL Cholesterol Direct HDL Cholesterol Urine WBC (Auto) Crossmatch 11/13/18 11/14/18 11/14/18 21:34 04:50 05:23 WBC RBC Hgb Hct MCV MCH MCHC RDW Seg Neuts % (Manual) Lymphocytes % (Manual) Eosinophils % (Manual) Lymphocytes # (Manual) POC ABG pH POC ABG pO2 ABG pO2 120.8 H ABG Hemoglobin 10.9 L Sodium Potassium Chloride Carbon Dioxide BUN Glucose POC Glucose 263 H Lactic Acid 4.50 H* Calcium AST ALT Alkaline Phosphatase Total Creatine Kinase CK-MB (CK-2) Troponin T NT-Pro-B Natriuret Pep Albumin Triglycerides LDL Cholesterol Direct HDL Cholesterol Urine WBC (Auto) Crossmatch 11/14/18 11/14/18 11/14/18 05:46 08:02 12:42 WBC RBC Hgb Hct MCV MCH MCHC RDW Seg Neuts % (Manual) Lymphocytes % (Manual) Eosinophils % (Manual) Lymphocytes # (Manual) POC ABG pH 7.463 H POC ABG pO2 136 H ABG pO2 ABG Hemoglobin Sodium Potassium Chloride Carbon Dioxide BUN Glucose POC Glucose 213 H Lactic Acid 2.70 H* Calcium AST ALT Alkaline Phosphatase Total Creatine Kinase CK-MB (CK-2) Troponin T NT-Pro-B Natriuret Pep Albumin Triglycerides LDL Cholesterol Direct HDL Cholesterol Urine WBC (Auto) Crossmatch 11/14/18 11/14/18 11/14/18 14:17 14:17 15:50 WBC 13.1 H 13.1 H RBC 2.36 L 2.36 L Hgb 6.1 L 6.1 L Hct 19.6 L* 19.4 L* MCV 83 L 82 L MCH 26 L 26 L MCHC 31 L 31 L RDW 19.4 H 19.3 H Seg Neuts % (Manual) Lymphocytes % (Manual) Eosinophils % (Manual) Lymphocytes # (Manual) POC ABG pH POC ABG pO2 ABG pO2 ABG Hemoglobin Sodium 148 H Potassium Chloride 110.3 H Carbon Dioxide BUN 56 H Glucose 203 H POC Glucose Lactic Acid Calcium 7.6 L AST ALT Alkaline Phosphatase Total Creatine Kinase CK-MB (CK-2) Troponin T NT-Pro-B Natriuret Pep Albumin Triglycerides LDL Cholesterol Direct HDL Cholesterol Urine WBC (Auto) Crossmatch 11/14/18 11/14/18 11/15/18 18:19 23:52 05:10 WBC 16.2 H RBC 3.22 L Hgb 8.8 L Hct 26.8 L D MCV 83 L MCH 27 L MCHC RDW 16.8 H Seg Neuts % (Manual) Lymphocytes % (Manual) Eosinophils % (Manual) Lymphocytes # (Manual) POC ABG pH POC ABG pO2 ABG pO2 ABG Hemoglobin Sodium Potassium Chloride Carbon Dioxide BUN Glucose POC Glucose 213 H 242 H Lactic Acid Calcium AST ALT Alkaline Phosphatase Total Creatine Kinase CK-MB (CK-2) Troponin T NT-Pro-B Natriuret Pep Albumin Triglycerides LDL Cholesterol Direct HDL Cholesterol Urine WBC (Auto) Crossmatch 11/15/18 11/15/18 05:10 05:36 WBC RBC Hgb Hct MCV MCH MCHC RDW Seg Neuts % (Manual) Lymphocytes % (Manual) Eosinophils % (Manual) Lymphocytes # (Manual) POC ABG pH POC ABG pO2 ABG pO2 ABG Hemoglobin Sodium 148 H Potassium 3.5 L Chloride 112.8 H Carbon Dioxide BUN 51 H Glucose 154 H POC Glucose 143 H Lactic Acid Calcium 7.8 L AST ALT Alkaline Phosphatase Total Creatine Kinase CK-MB (CK-2) Troponin T NT-Pro-B Natriuret Pep Albumin Triglycerides LDL Cholesterol Direct HDL Cholesterol Urine WBC (Auto) Crossmatch
[2018-11-15 12:37] LABS: BUN/Creatinine Ratio 49; Blood Urea Nitrogen 44 mg/dL (9-20); Calcium 7.7 mg/dL (8.4-10.2); Hemolysis Index 11
[2018-11-15] MEDS: KCL 10MEQ/100ML 10 MEQ/100 ML BAG IV SCH ×2 (15:16→17:50)
--- NOTE | 2018-11-15 17:34 | Progress Note ---
Assessment and Plan Cultures: 11/13 BCx - Enterococcus species 11/13 UCx - >100k mixed kole 11/13 Sputum Cx - not run due to contamination A/P: 77 yo M PMHx CVA, seizures, HTN, DM2 admitted for worsenign respiratory status. 1. Acute on chronic respiratory failure - CXR with congestion, he is afebrile and no leukocytosis. I don't see any sign of acute pneumonia at the present time. There were no secretions in the tube. If he is producing any secretions I would send for a repeat sputum culture. 2. Pyuria - Urine cultures with mixed kole. >100 CFU, probably cause of Enterococcal bacteremia outside of evident intra-abdominal pathology. Would stop cefepime currently. 3. DM2 4. HTN 5. Hx of CVA 6. Enterococcus bacteremia - Continue vancomycin pending speciation and sensitivities. He is a assisted resident and thus at risk for E faecium/VRE. Recs: - Continue vancomycin dosed per pharmacy. Goal trough 15-20 - stop cefepime 2g q8h. - follow up blood cultures. Darcy Noonan MD [facility] ([facility] M: [phone] O: [phone] F: [phone] Subjective Date of service: 11/15/18 Interval history: No acute change. remains on vent. Blood cultures positive for Enterococcus species. Objective - Exam Narrative Exam: Physical Exam: Constitutional: Non-responsive. No acute distress Head, Ears, Nose: Normocephalic, atraumatic. External ears, nose normal. In tubated Eyes: Conjunctivae/corneas clear. No icterus. No ptosis. Neck: Supple, no meningeal signs Oral: dentition fair, no thrush Cardiovascular: S1, S2 normal. Respiratory: Good air entry, clear to auscultation bilaterally GI: Soft, non-tender; bowel sounds normal. No peritoneal signs. I Musculoskeletal: No pedal edema, no cyanosis. Skin: No rash or abscess Hem/Lymphatic: No palpable cervical or supraclavicular nodes. No lymphangitis Psych: Mood ok. Affect normal Neurological: Intubated, non-responsive. - Constitutional Vitals: Vital Signs Temp Pulse Resp BP Pulse Ox 97.4 F L 64 12 95/46 100 11/15/18 16:00 11/15/18 17:01 11/15/18 17:01 11/15/18 17:01 11/15/18 17:01 Temperature -Last 24 Hours Temperature 97.4 F Temperature 97.0 F Temperature 97.6 F Temperature 97.6 F Temperature 98.7 F Temperature 100.5 F Temperature 97.6 F Temperature 97.4 F Temperature 97.6 F Temperature 97.8 F Temperature 97.6 F Temperature 100.4 F Temperature 98.9 F Temperature 97.5 F Temperature 98.1 F Temperature 97.6 F Temperature 98.7 F Temperature 98.9 F - Labs CBC & Chem 7: 11/15/18 05:10 11/15/18 12:00 Labs: Abnormal lab results 11/13/18 11/14/18 11/14/18 Range/Units 14:49 04:50 18:19 WBC (4.5-11.0) K/mm3 RBC (3.65-5.03) M/mm3 Hgb (11.8-15.2) gm/dl Hct (35.5-45.6) % MCV (84-94) fl MCH (28-32) pg RDW (13.2-15.2) % ABG pO2 120.8 H (80.0-90.0) mm Hg ABG Hemoglobin 10.9 L (14.0-18.0) gm/dl Sodium (137-145) mmol/L Potassium (3.6-5.0) mmol/L Chloride (98-107) mmol/L BUN (9-20) mg/dL Glucose (75-100) mg/dL POC Glucose 213 H (70-105) Calcium (8.4-10.2) mg/dL Crossmatch See Detail 11/14/18 11/15/18 11/15/18 Range/Units 23:52 05:10 05:10 WBC 16.2 H (4.5-11.0) K/mm3 RBC 3.22 L (3.65-5.03) M/mm3 Hgb 8.8 L (11.8-15.2) gm/dl Hct 26.8 L D (35.5-45.6) % MCV 83 L (84-94) fl MCH 27 L (28-32) pg RDW 16.8 H (13.2-15.2) % ABG pO2 (80.0-90.0) mm Hg ABG Hemoglobin (14.0-18.0) gm/dl Sodium 148 H (137-145) mmol/L Potassium 3.5 L (3.6-5.0) mmol/L Chloride 112.8 H (98-107) mmol/L BUN 51 H (9-20) mg/dL Glucose 154 H (75-100) mg/dL POC Glucose 242 H (70-105) Calcium 7.8 L (8.4-10.2) mg/dL Crossmatch 11/15/18 11/15/18 11/15/18 Range/Units 05:36 11:15 12:00 WBC (4.5-11.0) K/mm3 RBC (3.65-5.03) M/mm3 Hgb (11.8-15.2) gm/dl Hct (35.5-45.6) % MCV (84-94) fl MCH (28-32) pg RDW (13.2-15.2) % ABG pO2 (80.0-90.0) mm Hg ABG Hemoglobin (14.0-18.0) gm/dl Sodium 148 H (137-145) mmol/L Potassium 3.2 L (3.6-5.0) mmol/L Chloride 113.0 H (98-107) mmol/L BUN 44 H (9-20) mg/dL Glucose 144 H (75-100) mg/dL POC Glucose 143 H 139 H (70-105) Calcium 7.7 L (8.4-10.2) mg/dL Crossmatch
[2018-11-15] MEDS: VANCOMYCIN 1,250 MG in NACL 0.9% 250ML 250 ML IV SCH (17:50)
--- NOTE | 2018-11-16 03:03 | XRay Report ---
CHEST 1 VIEW 2:16 AM INDICATION / CLINICAL INFORMATION: Respiratory failure.. COMPARISON: 11/13/2018. FINDINGS: SUPPORT DEVICES: The position of the tracheostomy tube has not changed. HEART / MEDIASTINUM: Unchanged. LUNGS / PLEURA: There is mild patchy multifocal parenchymal disease in both lungs which has shown min imal change. No pneumothorax. ADDITIONAL FINDINGS: No significant additional findings. IMPRESSION: No significant change since 11/13/2018. Signer Name: Reynold Rolle MD Signed: 11/16/2018 2:59 AM Workstation Name: [id number]
[2018-11-16 03:54] LABS: Hematocrit 27.9 % (35.5-45.6); Hemoglobin 8.9 gm/dl (11.8-15.2); Mean Corpuscular HGB Conc 32 % (32-34); Mean Corpuscular Volume 84 fl (84-94); Platelet Count 181 K/mm3 (140-440); Red Cell Distribution Width 17.5 % (13.2-15.2)
[2018-11-16 04:20] LABS: BUN/Creatinine Ratio 51; Blood Urea Nitrogen 41 mg/dL (9-20); Calcium 7.7 mg/dL (8.4-10.2); Hemolysis Index 105
[2018-11-16 05:38] LABS: ABG Base Excess -1.7 mmol/L (-2.0-3.0); ABG HCO3 23.4 mmol/L (20.0-26.0); ABG Methemoglobin 0.5 % (0.0-1.5); ABG Oxygen Saturation 98.8 % (95.0-99.0); ABG PCO2 41.1 mm Hg; ABG PH 7.374 pH Units (7.350-7.450)
[2018-11-16] MEDS: NACL 0.9% 1000 ML 1,000 ML IV SCH ×2 (06:12→16:40)
[2018-11-16] MEDS: HumaLOG SUB-Q SCH ×4 (06:17→18:19)
[2018-11-16] MEDS: KCL 20MEQ/100ML 20 MEQ/100 ML BAG IV SCH ×2 (08:29→10:42)
--- NOTE | 2018-11-16 08:44 | Progress Note ---
Assessment and Plan Assessment and plan: Patient is 77 yo resident at [facility] with chronic resp failure s/p trach, diabetes, BPH,hypertension, chronic hypoxic encephalopatyhy. He was [facility] because of difficulty breathing, respiratory distress. He was seen and evaluated in ED and duagnosed with acute on chronic respiratory failure failure and hypotension. He was put on ventilator since he already had a tracheostomy. He was diagnosed with sepsis with septic shock, started on iv Abx and pressors. Acute on chronic resp failure Admitted to ICU Patient had previous tracheostomy Trach to ventilator Pulmonology following Severe Sepsis with septic shock due to VRE Now off Levophed, off vasopressin He was on Cefepime, but started on Zyvox today 11/16 Blood cultures Enterococcus Faecium 4 of 4 bottles ID Physician following Zyvox Sacral decub ulcer. consult Surgeon Diabetes mellitus type 2 Fingerstick q4h Anemia s/p 2 Units PRBC stool occult blood neg Hypertension by history. Monitor History of chronic hypoxic encephalopathy Hyperlipidemia Hypernatremia Hypokalemia Replace and recheck Full code status Discussed with at bedside. The high probability of a clinically significant, sudden or life threatening deterioration of the [4] system(s) required my full and direct attention, intervention and personal management. The aggregate critical care time was [31] minutes. This time is in addition to time spent performing reported procedures but includes the following: [x] Data Review and interpretation [x] Patient assessment and monitoring of vital signs [x] Documentation [x] Medication orders and management History Interval history: patient with sepsis,septic shock,acute on chronic resp failure Now off levophed Hospitalist Physical - Physical exam Narrative exam: Gen: Not in acute distress, lying in bed, ill looking HEENT: Normocephalic, atraumatic, tracheostomy to ventilator Neck: supple, no JVD,trach Heart: S1 and S2 reg, no murmurs, rubs or gallop Lungs: Clear, no crackles, no rhonchi Abd: soft, non tender, non distended, normal BS, PEG tube Ext: No edema, no clubbing, no cyanosis Neuro: Does not follow commands Sacral:sacral decub ulcer - Constitutional Vitals: Temp Pulse Resp BP Pulse Ox 96.7 F L 56 L 13 133/55 100 11/16/18 08:00 11/16/18 08:01 11/16/18 08:01 11/16/18 08:01 11/16/18 08:01 Results - Labs CBC & Chem 7: 11/16/18 03:45 11/16/18 03:45 Labs: Laboratory Last Values WBC 16.1 K/mm3 (4.5-11.0) H 11/16/18 03:45 RBC 3.30 M/mm3 (3.65-5.03) L 11/16/18 03:45 Hgb 8.9 gm/dl (11.8-15.2) L 11/16/18 03:45 Hct 27.9 % (35.5-45.6) L 11/16/18 03:45 MCV 84 fl (84-94) 11/16/18 03:45 MCH 27 pg (28-32) L 11/16/18 03:45 MCHC 32 % (32-34) 11/16/18 03:45 RDW 17.5 % (13.2-15.2) H 11/16/18 03:45 Plt Count 181 K/mm3 (140-440) 11/16/18 03:45 Add Manual Diff Complete 11/13/18 14:00 Total Counted 100 11/13/18 14:00 Seg Neuts % (Manual) 87.0 % (40.0-70.0) H 11/13/18 14:00 0 % 11/13/18 14:00 5.0 % (13.4-35.0) L 11/13/18 14:00 Reactive Lymphs % (Man) 0 % 11/13/18 14:00 1.0 % (0.0-7.3) 11/13/18 14:00 7.0 % (0.0-4.3) H 11/13/18 14:00 0 % (0.0-1.8) 11/13/18 14:00 0 % 11/13/18 14:00 0 % 11/13/18 14:00 0 % 11/13/18 14:00 0 % 11/13/18 14:00 Nucleated RBC % Not Reportable 11/13/18 14:00 Seg Neutrophils # Man 3.3 K/mm3 (1.8-7.7) 11/13/18 14:00 Band Neutrophils # 0.0 K/mm3 11/13/18 14:00 0.2 K/mm3 (1.2-5.4) L 11/13/18 14:00 Abs React Lymphs (Man) 0.0 K/mm3 11/13/18 14:00 0.0 K/mm3 (0.0-0.8) 11/13/18 14:00 0.3 K/mm3 (0.0-0.4) 11/13/18 14:00 0.0 K/mm3 (0.0-0.1) 11/13/18 14:00 0.0 K/mm3 11/13/18 14:00 0.0 K/mm3 11/13/18 14:00 0.0 K/mm3 11/13/18 14:00 Blast Cells # 0.0 K/mm3 11/13/18 14:00 WBC Morphology Not Reportable 11/13/18 14:00 Hypersegmented Neuts Not Reportable 11/13/18 14:00 Hyposegmented Neuts Not Reportable 11/13/18 14:00 Hypogranular Neuts Not Reportable 11/13/18 14:00 Not Reportable 11/13/18 14:00 Not Reportable 11/13/18 14:00 Not Reportable 11/13/18 14:00 Not Reportable 11/13/18 14:00 Not Reportable 11/13/18 14:00 Not Reportable 11/13/18 14:00 Consistent w auto 11/13/18 14:00 Not Reportable 11/13/18 14:00 Plt Clumps, EDTA Not Reportable 11/13/18 14:00 Not Reportable 11/13/18 14:00 Not Reportable 11/13/18 14:00 Not Reportable 11/13/18 14:00 Plt Morphology Comment Not Reportable 11/13/18 14:00 RBC Morphology Not Reportable 11/13/18 14:00 Dimorphic RBCs Not Reportable 11/13/18 14:00 Few 11/13/18 14:00 Not Reportable 11/13/18 14:00 Few 11/13/18 14:00 1+ 11/13/18 14:00 Not Reportable 11/13/18 14:00 Not Reportable 11/13/18 14:00 Few 11/13/18 14:00 Not Reportable 11/13/18 14:00 Not Reportable 11/13/18 14:00 Not Reportable 11/13/18 14:00 Not Reportable 11/13/18 14:00 Not Reportable 11/13/18 14:00 Not Reportable 11/13/18 14:00 Not Reportable 11/13/18 14:00 Not Reportable 11/13/18 14:00 Not Reportable 11/13/18 14:00 Not Reportable 11/13/18 14:00 Not Reportable 11/13/18 14:00 Not Reportable 11/13/18 14:00 Acanthocytes (Spur) Not Reportable 11/13/18 14:00 Rouleaux Not Reportable 11/13/18 14:00 Not Reportable 11/13/18 14:00 Not Reportable 11/13/18 14:00 Not Reportable 11/13/18 14:00 Not Reportable 11/13/18 14:00 Hem Pathologist Commnt No 11/13/18 14:00 POC ABG pH 7.463 (7.35-7.45) H 11/14/18 05:46 ABG pH 7.374 pH Units (7.350-7.450) 11/16/18 03:40 POC ABG pCO2 38.3 (35-45) 11/14/18 05:46 ABG pCO2 41.1 mm Hg 11/16/18 03:40 POC ABG pO2 136 (80-105) H 11/14/18 05:46 ABG pO2 147.0 mm Hg (80.0-90.0) H 11/16/18 03:40 POC ABG HCO3 27.4 (22-26 mml/L) 11/14/18 05:46 ABG HCO3 23.4 mmol/L (20.0-26.0) 11/16/18 03:40 POC ABG Total CO2 29 (23-27mmol/L) 11/14/18 05:46 POC ABG O2 Sat 99 11/14/18 05:46 ABG O2 Saturation 98.8 % (95.0-99.0) 11/16/18 03:40 ABG O2 Content 16.5 (0.0-44) 11/16/18 03:40 POC ABG Base Excess 4 ((-2) - (+3)mmol/L) 11/14/18 05:46 ABG Base Excess -1.7 mmol/L (-2.0-3.0) 11/16/18 03:40 ABG Hemoglobin 12.0 gm/dl (14.0-18.0) L 11/16/18 03:40 ABG Carboxyhemoglobin 1.6 % (0.0-5.0) 11/16/18 03:40 ABG Methemoglobin 0.5 % (0.0-1.5) 11/16/18 03:40 96.7 % (95.0-99.0) 11/16/18 03:40 35 % 11/16/18 03:40 Sodium 149 mmol/L (137-145) H 11/16/18 03:45 Potassium 3.5 mmol/L (3.6-5.0) L 11/16/18 03:45 Chloride 116.2 mmol/L (98-107) H 11/16/18 03:45 Carbon Dioxide 21 mmol/L (22-30) L 11/16/18 03:45 15 mmol/L 11/16/18 03:45 BUN 41 mg/dL (9-20) H 11/16/18 03:45 0.8 mg/dL (0.8-1.5) 11/16/18 03:45 Estimated GFR > 60 ml/min 11/16/18 03:45 51 % 11/16/18 03:45 Glucose 146 mg/dL (75-100) H 11/16/18 03:45 POC Glucose 155 (70-105) H 11/16/18 05:15 Lactic Acid 1.60 mmol/L (0.7-2.0) 11/14/18 12:50 Calcium 7.7 mg/dL (8.4-10.2) L 11/16/18 03:45 Magnesium 2.10 mg/dL (1.7-2.3) 11/15/18 12:00 0.70 mg/dL (0.1-1.2) 11/13/18 14:00 AST 154 units/L (5-40) H 11/13/18 14:00 ALT 134 units/L (7-56) H 11/13/18 14:00 586 units/L (35-129) H 11/13/18 14:00 510 units/L (55-170) H 11/13/18 14:49 CK-MB (CK-2) 4.4 ng/mL (0.0-4.0) H 11/13/18 14:49 CK-MB (CK-2) Rel Index 0.8 (0-4) 11/13/18 14:49 0.348 ng/mL (0.00-0.029) H* 11/13/18 14:49 NT-Pro-B Natriuret Pep 3679 pg/mL (0-900) H 11/13/18 14:49 6.8 g/dL (6.3-8.2) 11/13/18 14:00 1.2 g/dL (3.9-5) L 11/13/18 14:00 0.2 % 11/13/18 14:00 Triglycerides 284 mg/dL (2-149) H 11/13/18 14:49 Cholesterol 56 mg/dL (50-199) 11/13/18 14:49 4 mg/dL (50-130) L 11/13/18 14:49 7 mg/dL (40-59) L 11/13/18 14:49 8.00 % 11/13/18 14:49 Yellow (Yellow) 11/13/18 14:44 Slightly-cloudy (Clear) 11/13/18 14:44 6.0 (5.0-7.0) 11/13/18 14:44 Ur Specific [place] 1.017 (1.003-1.030) 11/13/18 14:44 30 mg/dl mg/dL (Negative) 11/13/18 14:44 Neg mg/dL (Negative) 11/13/18 14:44 Neg mg/dL (Negative) 11/13/18 14:44 Neg (Negative) 11/13/18 14:44 Neg (Negative) 11/13/18 14:44 Neg (Negative) 11/13/18 14:44 4.0 mg/dL (<2.0) 11/13/18 14:44 Ur Leukocyte Esterase Mod (Negative) 11/13/18 14:44 36.0 /HPF (0.0-6.0) H 11/13/18 14:44 21.0 /HPF (0.0-6.0) 11/13/18 14:44 1+ /HPF (Negative) 11/13/18 14:44 Few /HPF 11/13/18 14:44 3+ /HPF 11/13/18 14:44 Hepatitis A IgM Ab Non-reactive (NonReactive) 11/14/18 02:00 Hep Bs Antigen Non-reactive (Negative) 11/14/18 02:00 Hep B Core IgM Ab Non-reactive (NonReactive) 11/14/18 02:00 Non-reactive (NonReactive) 11/14/18 02:00 HIV 1&2 Antibody Rapid Non react (Non React) 11/14/18 02:00 Non react (Non React) 11/14/18 02:00 Blood Type O POSITIVE 11/13/18 14:49 Antibody Screen Negative 11/13/18 14:49 Crossmatch See Detail 11/13/18 14:49 Active Medications - Current Medications Current Medications: Generic Name Dose Route Start Last Admin Trade Name Freq PRN Reason Stop Dose Admin Lipase/Protease/Amylase 1 each 11/14/18 14:[address] 10,500 Unit FEEDTUBE PRN PRN For Clogged Feeding Tube Heparin Sodium (Porcine) 5,000 unit 11/14/18 03:30 11/15/18 22:02 Heparin SUB-Q 5,000 unit Q12HR LENCHO Administration Sodium Chloride 1,000 mls @ 125 mls/hr 11/14/18 00:15 11/16/18 06:12 Nacl 0.9% 1000 Ml IV 125 mls/hr DIRECT LENCHO Administration Vancomycin HCl 1,250 mg/ 275 mls @ 166.667 mls/hr 11/14/18 17:00 11/15/18 17:50 Sodium Chloride IV 166.667 mls/hr Q24H LENCHO Administration Norepinephrine 8 mg/ Sodium 250 mls @ 3.75 mls/hr 11/14/18 09:00 11/15/18 20:06 Chloride IV 2 mcg/min TITR LENCHO 3.75 mls/hr Titration Protocol 2 MCG/MIN Vasopressin 20 unit/ Sodium 101 mls @ 9.09 mls/hr 11/14/18 09:00 11/15/18 04:05 Chloride IV 0 units/min TITR LENCHO 0 mls/hr Titration Protocol 0.03 UNITS/MIN Potassium Chloride 20 meq in 100 mls @ 100 mls/hr 11/16/18 09:00 11/16/18 08:29 Kcl 20meq/100ml IV 11/16/18 10:59 100 mls/hr Q1H LENCHO Administration Potassium Chloride 10 meq in 100 mls @ 100 mls/hr 11/16/18 09:00 Kcl 10meq/100ml IV 11/16/18 10:59 Q1H LENCHO Insulin Human Lispro 0 unit 11/14/18 06:00 11/16/18 06:17 Humalog SUB-Q Not Given Q6HR PENDING SALE TO [facility] Protocol Lansoprazole 30 mg 11/16/18 10:00 Prevacid Solutab FEEDTUBE QDAY LENCHO Simple Syrup 15 ml 11/14/18 14:20 Simple Syrup FEEDTUBE PRN PRN Hypoglycemia Simple Syrup 30 ml 11/14/18 14:20 Simple Syrup FEEDTUBE PRN PRN Hypoglycemia Sodium Bicarbonate 325 mg 11/14/18 14:20 Sodium Bicarbonate FEEDTUBE PRN PRN For Clogged Feeding Tube Nutrition/Malnutrition Assess - Dietary Evaluation Nutrition/Malnutrition Findings: Nutrition Notes Start: 11/14/18 10:33 Freq: Status: Active Protocol: Document 11/14/18 10:33 CASSI (Rec: 11/14/18 10:41 VASO [id number] [email or web address]) Nutrition Notes Need for Assessment generated from: MD Order,snailer,MST Initial or Follow up Assessment Current Diagnosis Acute Kidney Injury,Diabetes, Hypertension,Respiratory Failure Other Pertinent Diagnosis Septic shock, UTI, Dysphagia, Chronic encephalopathy Current Diet No diet ordered Labs/Tests POC Glu 263 Pertinent Medications Dobutamine gtt, Levophed gtt, Vasopressin gtt Height 5 ft 9 in Weight 84 kg [place] Body Weight (kg) 72.72 BMI 27.3 Subjective/Other Information RD consulted for TF. Pt screened for malnutrition risk (wt loss, poor appetite), skin risk (Minor score: 8), hx of receiving NTR support, chewing difficulty, and new onset of DM. Pt is intubated and on vent support. [facility] and has PEG and trach in place. Burn Absent Trauma Absent #1 Nutrition Diagnosis Inadequate oral intake Etiology mech ventilation As Evidenced by Signs and Symptoms pt NPO Is patient on ventilator? Yes Is Patient Ambulatory and/or Out of Bed No [facility] [phone] Calculation Used for Recommendations [place]-St Jeor Additional Notes Pro needs 1.2-2g/k-168g/ day Fluid needs 1ml/kcal Nutrition Intervention Nutrition Support: Vital AF 1.2 at 60ml/hr with 100ml water flush q4h. Kcal 1,728 Protein (gm) 108 Carbohydrates (gm) 159 Fat (gm) 78 Fluid (mL) 1,168 Fiber (gm) 7 Goal #1 TF tolerance Goal #2 TF (at goal rate) to meet at least 75% energy and pro needs Anticipated Discharge Needs: Continue TF Follow-Up By: 11/16/18 Additional Comments F/U: new TF, vent status
[2018-11-16] MEDS ORDERED: KCL 10MEQ/100ML 10 MEQ/100 ML BAG IV SCH (09:00)
[2018-11-16] MEDS: HEPARIN SUB-Q SCH ×2 (10:42→21:33)
--- NOTE | 2018-11-16 11:13 | Progress Note ---
Assessment and Plan Cultures: 11/13 BCx - VRE 11/13 UCx - >100k mixed kole 11/13 Sputum Cx - not run due to contamination A/P: 77 yo M PMHx CVA, seizures, HTN, DM2 admitted for worsenign respiratory status. 1. Septic shock secondary to VRE bacteremia: Off pressors now. Source: urine v/s hepatobiliary v/s large sacral decubitus ulcer. Elevated LFTs including alk phos. 2. Acute on chronic respiratory failure - CXR with congestion, no focal infiltrate to suggest pneumonia. VRE / Enterococcus rarely causes pneumonia. 3. UTI - Urine cultures with mixed kole. >100 CFU, probably cause of Enterococcal bacteremia outside of evident intra-abdominal pathology. 4. Large sacral decubitus ulcer: may need debridement. 5. DM-2 6. Hx of CVA: s/p trach and PEG. Recs: - d/freedom Vancomycin - started IV Linezolid 600 mg BID - TTE, repeat blood cultures, RUQ US ordered - wound care consult. Also, may need debridement of the wound, consider Gen Surg consult - contact isolation D/W RN and ICU pharmacist. Tiara Corcoran MD, FACP [facility] M: [phone] O: [phone] F: [phone] Subjective Date of service: 11/16/18 Interval history: Off pressors. Cultures with VRE. Remains on the vent via trach. Unresponsive. at bedside. Patient been in and out of hospitals multiple times since 05/2018. Also has a large sacral wound. Objective - Exam Narrative Exam: Physical Exam: Constitutional: unresponsive, on vent Head, Ears, Nose: Normocephalic, atraumatic. External ears, nose normal Eyes: Conjunctivae/corneas clear. No icterus. No ptosis. Neck: trach Oral: unable to examine Cardiovascular: S1, S2 normal. Respiratory: Good air entry, clear to auscultation bilaterally GI: Soft, PEG +; bowel sounds + Musculoskeletal: No pedal edema, no cyanosis. Skin: Large sacral decubitus with eschar Hem/Lymphatic: No palpable cervical or supraclavicular nodes. No lymphangitis Psych: no agitation Neurological: unresponsive, on vent. - Constitutional Vitals: Vital Signs Temp Pulse Resp BP Pulse Ox 96.7 F L 56 L 12 103/56 100 11/16/18 08:00 11/16/18 10:31 11/16/18 10:31 11/16/18 10:31 11/16/18 10:31 Temperature -Last 24 Hours Temperature 96.7 F Temperature 97.4 F Temperature 98.8 F Temperature 98.4 F Temperature 97.4 F Temperature 97.0 F - Labs CBC & Chem 7: 11/16/18 03:45 11/16/18 03:45 Labs: Abnormal lab results 11/15/18 11/15/18 11/15/18 Range/Units 11:15 12:00 18:28 WBC (4.5-11.0) K/mm3 RBC (3.65-5.03) M/mm3 Hgb (11.8-15.2) gm/dl Hct (35.5-45.6) % MCH (28-32) pg RDW (13.2-15.2) % ABG pO2 (80.0-90.0) mm Hg ABG Hemoglobin (14.0-18.0) gm/dl Sodium 148 H (137-145) mmol/L Potassium 3.2 L (3.6-5.0) mmol/L Chloride 113.0 H (98-107) mmol/L Carbon Dioxide (22-30) mmol/L BUN 44 H (9-20) mg/dL Glucose 144 H (75-100) mg/dL POC Glucose 139 H 159 H (70-105) Calcium 7.7 L (8.4-10.2) mg/dL 11/15/18 11/15/18 11/16/18 Range/Units 20:56 23:32 03:40 WBC (4.5-11.0) K/mm3 RBC (3.65-5.03) M/mm3 Hgb (11.8-15.2) gm/dl Hct (35.5-45.6) % MCH (28-32) pg RDW (13.2-15.2) % ABG pO2 147.0 H (80.0-90.0) mm Hg ABG Hemoglobin 12.0 L (14.0-18.0) gm/dl Sodium (137-145) mmol/L Potassium (3.6-5.0) mmol/L Chloride (98-107) mmol/L Carbon Dioxide (22-30) mmol/L BUN (9-20) mg/dL Glucose (75-100) mg/dL POC Glucose 150 H 131 H (70-105) Calcium (8.4-10.2) mg/dL 11/16/18 11/16/18 11/16/18 Range/Units 03:45 03:45 05:15 WBC 16.1 H (4.5-11.0) K/mm3 RBC 3.30 L (3.65-5.03) M/mm3 Hgb 8.9 L (11.8-15.2) gm/dl Hct 27.9 L (35.5-45.6) % MCH 27 L (28-32) pg RDW 17.5 H (13.2-15.2) % ABG pO2 (80.0-90.0) mm Hg ABG Hemoglobin (14.0-18.0) gm/dl Sodium 149 H (137-145) mmol/L Potassium 3.5 L (3.6-5.0) mmol/L Chloride 116.2 H (98-107) mmol/L Carbon Dioxide 21 L (22-30) mmol/L BUN 41 H (9-20) mg/dL Glucose 146 H (75-100) mg/dL POC Glucose 155 H (70-105) Calcium 7.7 L (8.4-10.2) mg/dL - Imaging and cardiology Chest x-ray: report reviewed, image reviewed (no interval change. Trach +)
[2018-11-16] MEDS: ZYVOX 600MG/300ML 600 MG/300 ML BAG IV SCH ×2 (13:30→21:32)
[2018-11-16] MEDS: DAKIN'S HALF STRENGTH TP SCH ×2 (15:00→21:33)
[2018-11-16] MEDS: PREVACID SOLUTAB FEEDTUBE SCH (15:04)
--- NOTE | 2018-11-16 18:37 | Ultrasound Report ---
ULTRASOUND ABDOMEN, LIMITED (RIGHT UPPER QUADRANT) INDICATION: Hepatobiliary sepsis. COMPARISON: None available. FINDINGS: Pancreas: Visualized portion shows no significant abnormality. Liver: Moderate coarse increased echotexture characteristic for steatosis. Gallbladder: Collapsed without visualized stones Bile ducts: Normal. Common Bile Duct measures 5 mm. Free fluid: Small amount of perihepatic ascites Additional Findings: None. IMPRESSION: 1. Trace ascites. 2. Collapsed gallbladder without visualized gallstones 3. Hepatic steatosis. Signer Name: Eugenio Garcia MD Signed: 11/16/2018 6:33 PM Workstation Name: [id number]
[2018-11-16] MEDS ORDERED: MORPHINE IV PRN (22:21)
[2018-11-17] MEDS: HumaLOG SUB-Q SCH ×3 (00:21→14:30)
[2018-11-17] MEDS: NACL 0.9% 1000 ML 1,000 ML IV SCH ×2 (00:24→08:05)
[2018-11-17 05:00] LABS: Hematocrit 28.1 % (35.5-45.6); Mean Corpuscular HGB Conc 32 % (32-34); Mean Corpuscular Volume 84 fl (84-94); Platelet Count 182 K/mm3 (140-440); Red Blood Count 3.34 M/mm3 (3.65-5.03); Red Cell Distribution Width 17.5 % (13.2-15.2)
[2018-11-17 05:31] LABS: BUN/Creatinine Ratio 54; Blood Urea Nitrogen 38 mg/dL (9-20); Calcium 7.7 mg/dL (8.4-10.2); Hemolysis Index 15
[2018-11-17 05:38] LABS: ABG Base Excess -2.3 mmol/L (-2.0-3.0); ABG HCO3 21.9 mmol/L (20.0-26.0); ABG Methemoglobin 0.5 % (0.0-1.5); ABG Oxygen Saturation 97.9 % (95.0-99.0); ABG PCO2 35.7 mm Hg; ABG PH 7.406 pH Units (7.350-7.450); ABG PO2 105.9 mm Hg (80.0-90.0)
[2018-11-17] MEDS: POTASSIUM CHLORIDE FEEDTUBE SCH ×2 (08:14→14:30)
[2018-11-17] MEDS: PREVACID SOLUTAB FEEDTUBE SCH (10:24)
[2018-11-17] MEDS: HEPARIN SUB-Q SCH ×2 (10:24→21:16)
[2018-11-17] MEDS: ZYVOX 600MG/300ML 600 MG/300 ML BAG IV SCH ×2 (10:24→21:16)
[2018-11-17] MEDS: DAKIN'S HALF STRENGTH TP SCH ×2 (11:30→21:16)
--- NOTE | 2018-11-17 13:31 | Progress Note ---
Assessment and Plan Assessment and plan: Acute on chronic resp failure Cont. tracheostomycare, secretion control and airway mangement Trach to ventilator Pulmonology following Severe Sepsis with septic shock due to VRE On Levophed, off vasopressin He was on Cefepime, but started on Zyvox today 11/16 Blood cultures Enterococcus Faecium 4 of 4 bottles ID Physician following Zyvox Sacral decub ulcer. consulted surgery Diabetes mellitus type 2 Fingerstick q4h Anemia s/p 2 Units PRBC stool occult blood neg Hypertension by history. Monitor History of chronic hypoxic encephalopathy Hyperlipidemia Hypernatremia Hypokalemia Replace and recheck Full code status Discussed with at bedside. The high probability of a clinically significant, sudden or life threatening deterioration of the respiratory and skin system(s) required my full and direct attention, intervention and personal management. The aggregate critical care time was [31] minutes. This time is in addition to time spent performing reported procedures but includes the following: [x] Data Review and interpretation [x] Patient assessment and monitoring of vital signs [x] Documentation [x] Medication orders and management History Interval history: Patient is 77 yo resident at [facility] with chronic resp failure s/p trach, diabetes, BPH,hypertension, chronic hypoxic encephalopatyhy. He was sent to ED from custodial facility because of difficulty breathing, respiratory distress. He was seen and evaluated in ED and duagnosed with acute on chronic respiratory failure failure and hypotension. He was put on ventilator since he already had a tracheostomy. He was diagnosed with sepsis with septic shock, started on iv Abx and pressors. Hospitalist Physical - Constitutional Vitals: Temp Pulse Resp BP Pulse Ox 97.6 F 64 11 L 98/44 100 11/17/18 12:00 11/17/18 11:45 11/17/18 10:00 11/17/18 11:45 11/17/18 11:45 General appearance: Present: no acute distress, well-nourished, other (intubated on vent) - EENT Eyes: Present: PERRL, EOM intact ENT: hearing intact, clear oral mucosa, dentition normal - Neck Neck: Present: supple, normal ROM - Respiratory Respiratory effort: normal Respiratory: bilateral: CTA - Cardiovascular Rhythm: regular Heart Sounds: Present: S1 & S2. Absent: gallop, rub - Extremities Extremities: no ischemia, No edema, Full ROM - Abdominal General gastrointestinal: soft, non-tender, non-distended, normal bowel sounds - Integumentary Integumentary: Present: clear, warm, dry - Neurologic Neurologic: CNII-XII intact, moves all extremities Results - Labs CBC & Chem 7: 11/17/18 04:49 11/17/18 04:49 Labs: Laboratory Last Values WBC 12.1 K/mm3 (4.5-11.0) H 11/17/18 04:49 RBC 3.34 M/mm3 (3.65-5.03) L 11/17/18 04:49 Hgb 9.0 gm/dl (11.8-15.2) L 11/17/18 04:49 Hct 28.1 % (35.5-45.6) L 11/17/18 04:49 MCV 84 fl (84-94) 11/17/18 04:49 MCH 27 pg (28-32) L 11/17/18 04:49 MCHC 32 % (32-34) 11/17/18 04:49 RDW 17.5 % (13.2-15.2) H 11/17/18 04:49 Plt Count 182 K/mm3 (140-440) 11/17/18 04:49 Add Manual Diff Complete 11/13/18 14:00 Total Counted 100 11/13/18 14:00 Seg Neuts % (Manual) 87.0 % (40.0-70.0) H 11/13/18 14:00 0 % 11/13/18 14:00 5.0 % (13.4-35.0) L 11/13/18 14:00 Reactive Lymphs % (Man) 0 % 11/13/18 14:00 1.0 % (0.0-7.3) 11/13/18 14:00 7.0 % (0.0-4.3) H 11/13/18 14:00 0 % (0.0-1.8) 11/13/18 14:00 0 % 11/13/18 14:00 0 % 11/13/18 14:00 0 % 11/13/18 14:00 0 % 11/13/18 14:00 Nucleated RBC % Not Reportable 11/13/18 14:00 Seg Neutrophils # Man 3.3 K/mm3 (1.8-7.7) 11/13/18 14:00 Band Neutrophils # 0.0 K/mm3 11/13/18 14:00 0.2 K/mm3 (1.2-5.4) L 11/13/18 14:00 Abs React Lymphs (Man) 0.0 K/mm3 11/13/18 14:00 0.0 K/mm3 (0.0-0.8) 11/13/18 14:00 0.3 K/mm3 (0.0-0.4) 11/13/18 14:00 0.0 K/mm3 (0.0-0.1) 11/13/18 14:00 0.0 K/mm3 11/13/18 14:00 0.0 K/mm3 11/13/18 14:00 0.0 K/mm3 11/13/18 14:00 Blast Cells # 0.0 K/mm3 11/13/18 14:00 WBC Morphology Not Reportable 11/13/18 14:00 Hypersegmented Neuts Not Reportable 11/13/18 14:00 Hyposegmented Neuts Not Reportable 11/13/18 14:00 Hypogranular Neuts Not Reportable 11/13/18 14:00 Not Reportable 11/13/18 14:00 Not Reportable 11/13/18 14:00 Not Reportable 11/13/18 14:00 Not Reportable 11/13/18 14:00 Not Reportable 11/13/18 14:00 Not Reportable 11/13/18 14:00 Consistent w auto 11/13/18 14:00 Not Reportable 11/13/18 14:00 Plt Clumps, EDTA Not Reportable 11/13/18 14:00 Not Reportable 11/13/18 14:00 Not Reportable 11/13/18 14:00 Not Reportable 11/13/18 14:00 Plt Morphology Comment Not Reportable 11/13/18 14:00 RBC Morphology Not Reportable 11/13/18 14:00 Dimorphic RBCs Not Reportable 11/13/18 14:00 Few 11/13/18 14:00 Not Reportable 11/13/18 14:00 Few 11/13/18 14:00 1+ 11/13/18 14:00 Not Reportable 11/13/18 14:00 Not Reportable 11/13/18 14:00 Few 11/13/18 14:00 Not Reportable 11/13/18 14:00 Not Reportable 11/13/18 14:00 Not Reportable 11/13/18 14:00 Not Reportable 11/13/18 14:00 Not Reportable 11/13/18 14:00 Not Reportable 11/13/18 14:00 Not Reportable 11/13/18 14:00 Not Reportable 11/13/18 14:00 Not Reportable 11/13/18 14:00 Not Reportable 11/13/18 14:00 Not Reportable 11/13/18 14:00 Not Reportable 11/13/18 14:00 Acanthocytes (Spur) Not Reportable 11/13/18 14:00 Rouleaux Not Reportable 11/13/18 14:00 Not Reportable 11/13/18 14:00 Not Reportable 11/13/18 14:00 Not Reportable 11/13/18 14:00 Not Reportable 11/13/18 14:00 Hem Pathologist Commnt No 11/13/18 14:00 POC ABG pH 7.463 (7.35-7.45) H 11/14/18 05:46 ABG pH 7.406 pH Units (7.350-7.450) 11/17/18 Unknown POC ABG pCO2 38.3 (35-45) 11/14/18 05:46 ABG pCO2 35.7 mm Hg 11/17/18 Unknown POC ABG pO2 136 (80-105) H 11/14/18 05:46 ABG pO2 105.9 mm Hg (80.0-90.0) H 11/17/18 Unknown POC ABG HCO3 27.4 (22-26 mml/L) 11/14/18 05:46 ABG HCO3 21.9 mmol/L (20.0-26.0) 11/17/18 Unknown POC ABG Total CO2 29 (23-27mmol/L) 11/14/18 05:46 POC ABG O2 Sat 99 11/14/18 05:46 ABG O2 Saturation 97.9 % (95.0-99.0) 11/17/18 Unknown ABG O2 Content 15.6 (0.0-44) 11/17/18 Unknown POC ABG Base Excess 4 ((-2) - (+3)mmol/L) 11/14/18 05:46 ABG Base Excess -2.3 mmol/L (-2.0-3.0) L 11/17/18 Unknown ABG Hemoglobin 11.5 gm/dl (14.0-18.0) L 11/17/18 Unknown ABG Carboxyhemoglobin 1.8 % (0.0-5.0) 11/17/18 Unknown ABG Methemoglobin 0.5 % (0.0-1.5) 11/17/18 Unknown 95.6 % (95.0-99.0) 11/17/18 Unknown 25 % 11/17/18 Unknown Sodium 150 mmol/L (137-145) H 11/17/18 04:49 Potassium 3.2 mmol/L (3.6-5.0) L 11/17/18 04:49 Chloride 118.9 mmol/L (98-107) H 11/17/18 04:49 Carbon Dioxide 20 mmol/L (22-30) L 11/17/18 04:49 14 mmol/L 11/17/18 04:49 BUN 38 mg/dL (9-20) H 11/17/18 04:49 0.7 mg/dL (0.8-1.5) L 11/17/18 04:49 Estimated GFR > 60 ml/min 11/17/18 04:49 54 % 11/17/18 04:49 Glucose 164 mg/dL (75-100) H 11/17/18 04:49 POC Glucose 181 (70-105) H 11/17/18 05:45 Lactic Acid 1.60 mmol/L (0.7-2.0) 11/14/18 12:50 Calcium 7.7 mg/dL (8.4-10.2) L 11/17/18 04:49 Magnesium 2.10 mg/dL (1.7-2.3) 11/15/18 12:00 0.70 mg/dL (0.1-1.2) 11/13/18 14:00 AST 154 units/L (5-40) H 11/13/18 14:00 ALT 134 units/L (7-56) H 11/13/18 14:00 586 units/L (35-129) H 11/13/18 14:00 510 units/L (55-170) H 11/13/18 14:49 CK-MB (CK-2) 4.4 ng/mL (0.0-4.0) H 11/13/18 14:49 CK-MB (CK-2) Rel Index 0.8 (0-4) 11/13/18 14:49 0.348 ng/mL (0.00-0.029) H* 11/13/18 14:49 NT-Pro-B Natriuret Pep 3679 pg/mL (0-900) H 11/13/18 14:49 6.8 g/dL (6.3-8.2) 11/13/18 14:00 1.2 g/dL (3.9-5) L 11/13/18 14:00 0.2 % 11/13/18 14:00 Triglycerides 284 mg/dL (2-149) H 11/13/18 14:49 Cholesterol 56 mg/dL (50-199) 11/13/18 14:49 4 mg/dL (50-130) L 11/13/18 14:49 7 mg/dL (40-59) L 11/13/18 14:49 8.00 % 11/13/18 14:49 Yellow (Yellow) 11/13/18 14:44 Slightly-cloudy (Clear) 11/13/18 14:44 6.0 (5.0-7.0) 11/13/18 14:44 Ur Specific Heath 1.017 (1.003-1.030) 11/13/18 14:44 30 mg/dl mg/dL (Negative) 11/13/18 14:44 Neg mg/dL (Negative) 11/13/18 14:44 Neg mg/dL (Negative) 11/13/18 14:44 Neg (Negative) 11/13/18 14:44 Neg (Negative) 11/13/18 14:44 Neg (Negative) 11/13/18 14:44 4.0 mg/dL (<2.0) 11/13/18 14:44 Ur Leukocyte Esterase Mod (Negative) 11/13/18 14:44 36.0 /HPF (0.0-6.0) H 11/13/18 14:44 21.0 /HPF (0.0-6.0) 11/13/18 14:44 1+ /HPF (Negative) 11/13/18 14:44 Few /HPF 11/13/18 14:44 3+ /HPF 11/13/18 14:44 Hepatitis A IgM Ab Non-reactive (NonReactive) 11/14/18 02:00 Hep Bs Antigen Non-reactive (Negative) 11/14/18 02:00 Hep B Core IgM Ab Non-reactive (NonReactive) 11/14/18 02:00 Non-reactive (NonReactive) 11/14/18 02:00 HIV 1&2 Antibody Rapid Non react (Non React) 11/14/18 02:00 Non react (Non React) 11/14/18 02:00 Blood Type O POSITIVE 11/13/18 14:49 Antibody Screen Negative 11/13/18 14:49 Crossmatch See Detail 11/13/18 14:49 Active Medications - Current Medications Current Medications: Generic Name Dose Route Start Last Admin Trade Name Freq PRN Reason Stop Dose Admin Lipase/Protease/Amylase 1 each 11/14/18 14:20 Pancreaze 10,500 Unit FEEDTUBE PRN PRN For Clogged Feeding Tube Heparin Sodium (Porcine) 5,000 unit 11/14/18 03:30 11/17/18 10:24 Heparin SUB-Q 5,000 unit Q12HR LENCHO Administration Sodium Chloride 1,000 mls @ 125 mls/hr 11/14/18 00:15 11/17/18 08:05 Nacl 0.9% 1000 Ml IV 125 mls/hr DIRECT LENCHO Administration Norepinephrine 8 mg/ Sodium 250 mls @ 3.75 mls/hr 11/14/18 09:00 11/15/18 20:06 Chloride IV 2 mcg/min TITR LENCHO 3.75 mls/hr Titration Protocol 2 MCG/MIN Vasopressin 20 unit/ Sodium 101 mls @ 9.09 mls/hr 11/14/18 09:00 11/15/18 04:05 Chloride IV 0 units/min TITR LENCHO 0 mls/hr Titration Protocol 0.03 UNITS/MIN Linezolid 600 mg in 300 mls @ 300 mls/hr 11/16/18 12:00 11/17/18 10:24 Zyvox 600mg/300ml IV 300 mls/hr Q12HR LENCHO Administration Protocol Insulin Human Lispro 0 unit 11/14/18 06:00 11/17/18 05:56 Humalog SUB-Q 2 unit Q6HR LENCHO Administration Protocol Lansoprazole 30 mg 11/16/18 10:00 11/17/18 10:24 Prevacid Solutab FEEDTUBE 30 mg QDAY LENCHO Administration Simple Syrup 15 ml 11/14/18 14:20 Simple Syrup FEEDTUBE PRN PRN Hypoglycemia Simple Syrup 30 ml 11/14/18 14:20 Simple Syrup FEEDTUBE PRN PRN Hypoglycemia Sodium Bicarbonate 325 mg 11/14/18 14:20 Sodium Bicarbonate FEEDTUBE PRN PRN For Clogged Feeding Tube Sodium Hypochlorite 1 applic 11/16/18 13:00 11/16/18 21:33 Dakin's Half Strength TP 1 applicatio BID LENCHO Administration Nutrition/Malnutrition Assess - Dietary Evaluation Nutrition/Malnutrition Findings: Nutrition Notes Start: 11/14/18 10:33 Freq: Status: Active Protocol: Document 11/16/18 13:21 LP (Rec: 11/16/18 13:25 LP [id number]) Nutrition Notes Initial or Follow up Brief Note Current Diagnosis Acute Kidney Injury,Decubitus( Pressure Ulcer),Diabetes, Sepsis,Hypertension,Heart Failure,Respiratory Failure, Stroke Other Pertinent Diagnosis sacral wound, UTI, Dysphagia, Chronic encephalopathy Subjective/Other Information TF off due to high residual 400ml. Continues on vent. #1 Nutrition Diagnosis Inadequate oral intake Diagnosis Progress(for reassessment Continues documentation) Nutrition Intervention Change Diet Order: restart TF once feasible Nutrition Support: Vital AF 1.2 at 60ml/hr with 100ml water flush q4h. Follow-Up By: 11/17/18 Additional Comments Follow for TF restart
--- NOTE | 2018-11-17 13:41 | Consultation ---
History of Present Illness Consult date: 11/17/18 Reason for consult: wound care Requesting physician: GALE PRAJAPATI Chief complaint: decubitus ulcer - History of present illness History of present illness: 77yo M with multiple medical problems including a recent CVA. He is well known to us as we've recently performed his tracheostomy. He has returned from the care home due to respiratory distress. He was also noted to have a severe worsening of his decubitus ulcer. We are asked to consult for wound care evaluation and management. Patient unable to participate in the interview. He is unresponsive. Past History Past Medical History: CAD, hypertension (chronic resp failure, renal insuff, hypoxic encephalopathy), sarcoidosis, other Past Surgical History: Other (trach) Social history: , other (lives in [place]) Family history: hypertension Medications and Allergies Allergies Allergy/AdvReac Type Severity Reaction Status Date / Time No Known Allergies Allergy Verified 08/12/18 21:47 Home Medications Medication Instructions Recorded Confirmed Last Taken Type Amantadine [Symmetrel] 100 mg FEEDTUBE DAILY 08/18/18 11/14/18 08/13/18 History Amlodipine Besylate [Norvasc] 5 mg FEEDTUBE DAILY 08/18/18 11/14/18 08/13/18 History Ascorbic Acid [Vitamin C Oral Liq] 500 mg FEEDTUBE QDAY 08/18/18 11/14/18 08/13/18 History Atorvastatin Calcium [Lipitor] 40 mg FEEDTUBE DAILY 08/18/18 11/14/18 08/13/18 History Bisacodyl [Dulcolax suppos] 10 mg CO QDAY PRN 08/18/18 11/14/18 Unknown History Docusate Sodium [Colace ORAL LIQ] 100 mg FEEDTUBE QDAY PRN 08/18/18 11/14/18 Unknown History Ferrous Sulfate [Ferrous Sulfate 7.5 ml FEEDTUBE DAILY 08/18/18 11/14/18 08/13/18 History 220 MG/5 ML] Glycopyrrolate [Robinul] 2 mg FEEDTUBE Q8H 08/18/18 11/14/18 08/13/18 History Insulin Glargine,Hum.rec.anlog 40 unit SQ HS 08/18/18 11/14/18 08/12/18 History [Basaglar Kwikpen U-100] Lacosamide [Vimpat] 1 tab FEEDTUBE Q12HR 08/18/18 11/14/18 Unknown History Acetaminophen 650 mg FEEDTUBE Q12H PRN 09/28/18 11/14/18 Unknown History Aspirin [Aspirin BABY CHEW TAB] 81 mg FEEDTUBE QDAY 09/28/18 11/14/18 Unknown History Benazepril HCl [Lotensin] 10 mg FEEDTUBE QDAY 09/28/18 11/14/18 Unknown History Lispro Insulin [HumaLOG] See Protocol SQ ACHS 09/28/18 11/14/18 Unknown History Tamsulosin [Flomax] 0.4 mg FEEDTUBE QDAY 09/28/18 11/14/18 Unknown History guaiFENesin [Mucus-Chest 200 mg FEEDTUBE Q4H PRN 09/28/18 11/14/18 Unknown History Congestion] Famotidine [Pepcid] 20 mg PO QDAY #30 tablet 10/09/18 11/14/18 Unknown Rx Furosemide [Lasix TAB] 40 mg PO QDAY #30 tablet 10/09/18 11/14/18 Unknown Rx Ipratropium/Albuterol Sulfate 1 ampul IH Q6HRT #90 ampul.neb 10/09/18 11/14/18 Unknown Rx [DUONEB *Not for PRN Use*] Sucralfate [Carafate] 1 gm FEEDTUBE Q8H oral.liqd 10/09/18 11/14/18 Unknown Rx Active Meds: Active Medications Lipase/Protease/Amylase (Juana Alas 10,500 Unit) 1 each FEEDTUBE PRN PRN PRN Reason: For Clogged Feeding Tube Heparin Sodium (Porcine) (Heparin) 5,000 unit SUB-Q Q12HR LENCHO Last Admin: 11/17/18 10:24 Dose: 5,000 unit Documented by: Sodium Chloride (Nacl 0.9% 1000 Ml) 1,000 mls @ 125 mls/hr IV DIRECT LENCHO Last Admin: 11/17/18 08:05 Dose: 125 mls/hr Documented by: Norepinephrine 8 mg/ Sodium (Chloride) 250 mls @ 3.75 mls/hr IV TITR LENCHO; Protocol Last Titration: 11/15/18 20:06 Dose: 2 mcg/min, 3.75 mls/hr Documented by: Vasopressin 20 unit/ Sodium (Chloride) 101 mls @ 9.09 mls/hr IV TITR LENCHO; Protocol Last Titration: 11/15/18 04:05 Dose: 0 units/min, 0 mls/hr Documented by: Linezolid (Zyvox 600mg/300ml) 600 mg in 300 mls @ 300 mls/hr IV Q12HR LENCHO; Protocol Last Admin: 11/17/18 10:24 Dose: 300 mls/hr Documented by: Insulin Human Lispro (Humalog) 0 unit SUB-Q Q6HR LENCHO; Protocol Last Admin: 11/17/18 05:56 Dose: 2 unit Documented by: Lansoprazole (Prevacid Solutab) 30 mg FEEDTUBE QDAY [facility] Last Admin: 11/17/18 10:24 Dose: 30 mg Documented by: Simple Syrup (Simple Syrup) 15 ml FEEDTUBE PRN PRN PRN Reason: Hypoglycemia Simple Syrup (Simple Syrup) 30 ml FEEDTUBE PRN PRN PRN Reason: Hypoglycemia Sodium Bicarbonate (Sodium Bicarbonate) 325 mg FEEDTUBE PRN PRN PRN Reason: For Clogged Feeding Tube Sodium Hypochlorite (Dakin's Half Strength) 1 applic TP BID [facility] Last Admin: 11/16/18 21:33 Dose: 1 applicatio Documented by: Review of Systems ROS unobtainable: due to endotracheal tube, due to mental status Exam Vital Signs BP Pulse Ox 111/55 100 11/13/18 13:29 11/13/18 13:29 - General physical appearance Positive: no distress, no pain, other (unresponsive) - Eyes Positive: loss of movement. Negative: normal occular movement - Respiratory Positive: normal expansion, normal respiratory effort - Integumentary other (large sacral decubitus ulcer with necrotic tissue. No odor. No surrounding erythema.) Results - Labs 11/17/18 04:49 11/17/18 04:49 Abnormal lab results 11/16/18 11/16/18 11/16/18 Range/Units 15:14 18:20 23:49 WBC (4.5-11.0) K/mm3 RBC (3.65-5.03) M/mm3 Hgb (11.8-15.2) gm/dl Hct (35.5-45.6) % MCH (28-32) pg RDW (13.2-15.2) % ABG pO2 (80.0-90.0) mm Hg ABG Base Excess (-2.0-3.0) mmol/L ABG Hemoglobin (14.0-18.0) gm/dl Sodium (137-145) mmol/L Potassium (3.6-5.0) mmol/L Chloride (98-107) mmol/L Carbon Dioxide (22-30) mmol/L BUN (9-20) mg/dL Creatinine (0.8-1.5) mg/dL Glucose (75-100) mg/dL POC Glucose 215 H 230 H 189 H (70-105) Calcium (8.4-10.2) mg/dL 11/17/18 11/17/18 11/17/18 Range/Units 04:49 04:49 05:45 WBC 12.1 H (4.5-11.0) K/mm3 RBC 3.34 L (3.65-5.03) M/mm3 Hgb 9.0 L (11.8-15.2) gm/dl Hct 28.1 L (35.5-45.6) % MCH 27 L (28-32) pg RDW 17.5 H (13.2-15.2) % ABG pO2 (80.0-90.0) mm Hg ABG Base Excess (-2.0-3.0) mmol/L ABG Hemoglobin (14.0-18.0) gm/dl Sodium 150 H (137-145) mmol/L Potassium 3.2 L (3.6-5.0) mmol/L Chloride 118.9 H (98-107) mmol/L Carbon Dioxide 20 L (22-30) mmol/L BUN 38 H (9-20) mg/dL Creatinine 0.7 L (0.8-1.5) mg/dL Glucose 164 H (75-100) mg/dL POC Glucose 181 H (70-105) Calcium 7.7 L (8.4-10.2) mg/dL 11/17/18 Range/Units Unknown WBC (4.5-11.0) K/mm3 RBC (3.65-5.03) M/mm3 Hgb (11.8-15.2) gm/dl Hct (35.5-45.6) % MCH (28-32) pg RDW (13.2-15.2) % ABG pO2 105.9 H (80.0-90.0) mm Hg ABG Base Excess -2.3 L (-2.0-3.0) mmol/L ABG Hemoglobin 11.5 L (14.0-18.0) gm/dl Sodium (137-145) mmol/L Potassium (3.6-5.0) mmol/L Chloride (98-107) mmol/L Carbon Dioxide (22-30) mmol/L BUN (9-20) mg/dL Creatinine (0.8-1.5) mg/dL Glucose (75-100) mg/dL POC Glucose (70-105) Calcium (8.4-10.2) mg/dL Diabetes panel 11/17/18 Range/Units 04:49 Sodium 150 H (137-145) mmol/L Potassium 3.2 L (3.6-5.0) mmol/L Chloride 118.9 H (98-107) mmol/L Carbon Dioxide 20 L (22-30) mmol/L BUN 38 H (9-20) mg/dL Creatinine 0.7 L (0.8-1.5) mg/dL Glucose 164 H (75-100) mg/dL Calcium 7.7 L (8.4-10.2) mg/dL Calcium panel 11/17/18 Range/Units 04:49 Calcium 7.7 L (8.4-10.2) mg/dL Pituitary panel 11/17/18 Range/Units 04:49 Sodium 150 H (137-145) mmol/L Potassium 3.2 L (3.6-5.0) mmol/L Chloride 118.9 H (98-107) mmol/L Carbon Dioxide 20 L (22-30) mmol/L BUN 38 H (9-20) mg/dL Creatinine 0.7 L (0.8-1.5) mg/dL Glucose 164 H (75-100) mg/dL Calcium 7.7 L (8.4-10.2) mg/dL Adrenal panel 11/17/18 Range/Units 04:49 Sodium 150 H (137-145) mmol/L Potassium 3.2 L (3.6-5.0) mmol/L Chloride 118.9 H (98-107) mmol/L Carbon Dioxide 20 L (22-30) mmol/L BUN 38 H (9-20) mg/dL Creatinine 0.7 L (0.8-1.5) mg/dL Glucose 164 H (75-100) mg/dL Calcium 7.7 L (8.4-10.2) mg/dL Assessment and Plan - Patient Problems (1) Sacral decubitus ulcer Current Visit: Yes Status: Acute Qualifiers: Pressure injury stage: unspecified pressure injury stage Qualified Code(s): L89.159 - Pressure ulcer of sacral region, unspecified stage Plan to address problem: Patient with a significant ulcer. Difficult to stage prior to debridement. My suspicion is that goes down to the level of the fascia. I had a long conversation with the . I explained that in his current state, this wound will never heal. It will only continue to get worse. We'll have to consider what our ultimate goals of care are. His overall prognosis is very poor. He is unable to participate in his care. He is dependent on others to keep turning him to minimize pressure wounds. In a short period of time at the care home, he is already returned with a very severe pressure wound which he did not have when he left last time. It is important that the decide what they hope to accomplish with all of this care. I do not feel that it is appropriate for us to debride the wound in light of his current state and poor prognosis of any meaningful recovery. I would like her to discuss with her daughter how they want to proceed. Should they decide that they do want debridement, despite my recommendation against it, we will proceed with debridement at the bedside. We will do so only as long as she understands that this will never heal and most meir pacheco will only get worse in the future. She acknowledged understanding. She will speak with her daughter. I have given them my business card with my cell phone number so they may call with any questions. I await their decision. His call with any questions. time=60min
--- NOTE | 2018-11-17 14:06 | Progress Note ---
Assessment and Plan Cultures: 11/13 BCx - VRE 11/13 UCx - >100k mixed kole 11/13 Sputum Cx - not run due to contamination 11/16/2018 Blood culture: in process A/P: 77 yo M PMHx CVA, seizures, HTN, DM2 admitted for worsenign respiratory status. 1. Septic shock secondary to VRE bacteremia: Off pressors. Source: urine v/s large sacral decubitus ulcer. TTE poor windows, if repeat blood cultures remain negative, would not recommend GLORIA since overall prognosis remains extremely poor and he is not going to be a candidate for any valve surgeries. 2. Acute on chronic respiratory failure - CXR with congestion, no focal infiltrate to suggest pneumonia. VRE / Enterococcus rarely causes pneumonia. 3. UTI - Urine cultures with mixed kole. >100 CFU, probably cause of Enterococcal bacteremia outside of evident intra-abdominal pathology. 4. Large sacral decubitus ulcer: appreciate General Surgery recommendations. Agree that prognosis is extremely poor. 5. DM-2 6. Hx of CVA: s/p trach and PEG. 7. Elevated LFTs: probably from sepsis. RUQ US showed collapsed GB, no gallstones, trace ascites and hepatic steatosis. Recs: - continue IV Linezolid 600 mg BID - f/u repeat blood cultures - continue wound care - contact isolation - poor overall prognosis, agree with discussing goals of care. Recommend palliative care / hospice Tiara Corcoran MD, FACP [facility] ([facility]) M: [phone] O: [phone] F: [phone] Subjective Date of service: 11/17/18 Interval history: No fever. Remains unresponsive. On vent via trach. Objective - Exam Narrative Exam: Physical Exam: Constitutional: unresponsive, on vent Head, Ears, Nose: Normocephalic, atraumatic. External ears, nose normal Eyes: Conjunctivae/corneas clear. No icterus. No ptosis. Neck: trach Oral: unable to examine Cardiovascular: S1, S2 normal. Respiratory: Good air entry, clear to auscultation bilaterally GI: Soft, PEG +; bowel sounds + Musculoskeletal: No pedal edema, no cyanosis. Skin: Large sacral decubitus with eschar with dressing Hem/Lymphatic: No palpable cervical or supraclavicular nodes. No lymphangitis Psych: no agitation Neurological: unresponsive, on vent. - Constitutional Vitals: Vital Signs Temp Pulse Resp BP Pulse Ox 97.6 F 64 11 L 98/44 100 11/17/18 12:00 11/17/18 11:45 11/17/18 10:00 11/17/18 11:45 11/17/18 11:45 Temperature -Last 24 Hours Temperature 97.6 F Temperature 97.3 F Temperature 97.3 F Temperature 97.8 F Temperature 94.8 F Temperature 92.6 F Temperature 91.0 F Temperature 97.4 F - Labs CBC & Chem 7: 11/17/18 04:49 11/17/18 04:49 Labs: Abnormal lab results 11/16/18 11/16/18 11/16/18 Range/Units 15:14 18:20 23:49 WBC (4.5-11.0) K/mm3 RBC (3.65-5.03) M/mm3 Hgb (11.8-15.2) gm/dl Hct (35.5-45.6) % MCH (28-32) pg RDW (13.2-15.2) % ABG pO2 (80.0-90.0) mm Hg ABG Base Excess (-2.0-3.0) mmol/L ABG Hemoglobin (14.0-18.0) gm/dl Sodium (137-145) mmol/L Potassium (3.6-5.0) mmol/L Chloride (98-107) mmol/L Carbon Dioxide (22-30) mmol/L BUN (9-20) mg/dL Creatinine (0.8-1.5) mg/dL Glucose (75-100) mg/dL POC Glucose 215 H 230 H 189 H (70-105) Calcium (8.4-10.2) mg/dL 11/17/18 11/17/18 11/17/18 Range/Units 04:49 04:49 05:45 WBC 12.1 H (4.5-11.0) K/mm3 RBC 3.34 L (3.65-5.03) M/mm3 Hgb 9.0 L (11.8-15.2) gm/dl Hct 28.1 L (35.5-45.6) % MCH 27 L (28-32) pg RDW 17.5 H (13.2-15.2) % ABG pO2 (80.0-90.0) mm Hg ABG Base Excess (-2.0-3.0) mmol/L ABG Hemoglobin (14.0-18.0) gm/dl Sodium 150 H (137-145) mmol/L Potassium 3.2 L (3.6-5.0) mmol/L Chloride 118.9 H (98-107) mmol/L Carbon Dioxide 20 L (22-30) mmol/L BUN 38 H (9-20) mg/dL Creatinine 0.7 L (0.8-1.5) mg/dL Glucose 164 H (75-100) mg/dL POC Glucose 181 H (70-105) Calcium 7.7 L (8.4-10.2) mg/dL 11/17/18 Range/Units Unknown WBC (4.5-11.0) K/mm3 RBC (3.65-5.03) M/mm3 Hgb (11.8-15.2) gm/dl Hct (35.5-45.6) % MCH (28-32) pg RDW (13.2-15.2) % ABG pO2 105.9 H (80.0-90.0) mm Hg ABG Base Excess -2.3 L (-2.0-3.0) mmol/L ABG Hemoglobin 11.5 L (14.0-18.0) gm/dl Sodium (137-145) mmol/L Potassium (3.6-5.0) mmol/L Chloride (98-107) mmol/L Carbon Dioxide (22-30) mmol/L BUN (9-20) mg/dL Creatinine (0.8-1.5) mg/dL Glucose (75-100) mg/dL POC Glucose (70-105) Calcium (8.4-10.2) mg/dL
--- NOTE | 2018-11-17 14:20 | Progress Note ---
Assessment and Plan -Acute on chronic hypoxic respiratory failure on MVS -Severe sepsis with shock, off vasopressors -VRE bacteremia -UTI -Large sacaral decubitus ulcer -Acute on chronic metabolic encephalopathy -Orophargyngeal dysphagia s/p PEG -h/o CVAs -Transaminitis probably secondary to hypotension -Type 2 DM -Hypernatremia -Hypokalemia -VAP bundle addressed -Trach care, airway clearance and secretion management -Lung protective strategies -Accuchecks with glycemic control, continue with insulin infusion per protocol -Douglass catheter for accurate intake and output monitoring in this critically ill patient with history of chronic douglass/urinary retention -Avoid nephrotoxins -VTE prophylaxis -Stress ulcer prophylaxis -Antibiotics per ID, de-escalate as indicated -Daily SAT and SBT -Mobility and off loading for sacral decubitus -Wound care -Free water flushes and hypotonic solutions for hypernatremia -Optimize nutrition to help promote wound healing -Supportive transfusions as indicated, to keep HgB>7g/dL -Vasopressor support as indicated for MAP<65, with blood pressure unresponsive to volume resuscitation -Continue to monitor hemodynamics closely -Keep Potassium at 4, to optimize respiratory muscle function General surgery consult notes reviewed- poor candidate for wound debridement, poor chances of wound healing. Awaiting family decisions re goals of care CONDITION: CRITICAL PROGNOSIS; POOR CODE STATUS: FULL Discussed care plan with RT and RN. Discussed during ICU-IDT rounds Goals of care need to be re-addressed with family The high probability of a clinically significant, sudden or life threatening deterioration of the respiratory, cardiovascular,endocrine, system(s) required my full and direct attention, intervention and personal management. The aggregate critical care time was [35] minutes. This time is in addition to time spent performing reported procedures but includes the following: [x] Data Review and interpretation [x]Patient assessment and monitoring of vital signs [x] Documentation [x] Medication orders and management Subjective Date of service: 11/17/18 Interval history: Patient known to our service. Per family request, care is being transferred back to us Patient is seen today for: Severe sepsis with septic shock; Acute and chronic respiratory failure on MVS; Acute and chronic metabolic encephalopathy; Seen and examined at bedside; 24hour events reviewed; nursing and respiratory care staff consulted; resting peacefully in bed; failed PS trial this morning, remains on full MVS, off vasopressor support; Vitals, labs, medications, chart reviewed. AMS is persistent; tolerating tube feeds; afebrile; Objective Vital Signs - 12hr 11/17/18 11/17/18 11/17/18 02:31 02:43 02:45 Temperature 97.8 F Pulse Rate 62 62 Pulse Rate [ From Monitor] Respiratory 13 15 Rate Blood Pressure 109/45 114/47 O2 Sat by Pulse 100 100 Oximetry 11/17/18 11/17/18 11/17/18 03:00 03:15 03:31 Temperature Pulse Rate 61 62 200 H Pulse Rate [ From Monitor] Respiratory 14 12 Rate Blood Pressure 114/47 112/46 118/43 O2 Sat by Pulse 100 100 100 Oximetry 11/17/18 11/17/18 11/17/18 03:45 04:00 04:01 Temperature Pulse Rate 64 65 Pulse Rate [ 65 From Monitor] Respiratory 15 14 14 Rate Blood Pressure 118/43 120/46 O2 Sat by Pulse 100 100 100 Oximetry 11/17/18 11/17/18 11/17/18 04:15 04:30 04:45 Temperature Pulse Rate 64 65 69 Pulse Rate [ From Monitor] Respiratory 13 16 15 Rate Blood Pressure 120/46 111/48 118/49 O2 Sat by Pulse 100 100 99 Oximetry 11/17/18 11/17/18 11/17/18 05:01 05:15 05:31 Temperature Pulse Rate 64 64 62 Pulse Rate [ From Monitor] Respiratory 12 18 12 Rate Blood Pressure 107/46 110/45 111/50 O2 Sat by Pulse 100 100 100 Oximetry 11/17/18 11/17/18 11/17/18 05:45 06:01 06:15 Temperature Pulse Rate 63 65 64 Pulse Rate [ From Monitor] Respiratory 14 16 14 Rate Blood Pressure 111/50 113/47 113/47 O2 Sat by Pulse 100 100 100 Oximetry 11/17/18 11/17/18 11/17/18 06:31 06:45 07:01 Temperature Pulse Rate 63 64 62 Pulse Rate [ From Monitor] Respiratory 13 14 12 Rate Blood Pressure 108/42 108/42 112/43 O2 Sat by Pulse 100 100 100 Oximetry 11/17/18 11/17/18 11/17/18 07:15 07:31 07:45 Temperature Pulse Rate 63 63 63 Pulse Rate [ From Monitor] Respiratory 12 22 12 Rate Blood Pressure 112/43 114/39 114/39 O2 Sat by Pulse 100 100 100 Oximetry 11/17/18 11/17/18 11/17/18 08:00 08:15 08:30 Temperature 97.3 F L Pulse Rate 64 62 64 Pulse Rate [ 64 From Monitor] Respiratory 14 12 19 Rate Blood Pressure 116/47 116/47 104/44 O2 Sat by Pulse 100 100 100 Oximetry 11/17/18 11/17/18 11/17/18 08:45 08:49 08:52 Temperature Pulse Rate 64 67 66 Pulse Rate [ From Monitor] Respiratory 13 23 Rate Blood Pressure 104/44 119/43 119/43 O2 Sat by Pulse 100 100 100 Oximetry 11/17/18 11/17/18 11/17/18 09:00 09:15 09:30 Temperature Pulse Rate 66 66 67 Pulse Rate [ From Monitor] Respiratory 20 26 H 19 Rate Blood Pressure 112/44 112/44 118/44 O2 Sat by Pulse 100 100 100 Oximetry 11/17/18 11/17/18 11/17/18 09:45 10:00 10:15 Temperature Pulse Rate 64 64 64 Pulse Rate [ From Monitor] Respiratory 15 11 L 12 Rate Blood Pressure 118/44 102/40 102/40 O2 Sat by Pulse 100 100 100 Oximetry 11/17/18 11/17/18 11/17/18 10:31 10:45 11:01 Temperature Pulse Rate 64 64 62 Pulse Rate [ From Monitor] Respiratory 16 14 12 Rate Blood Pressure 108/40 108/40 107/40 O2 Sat by Pulse 100 100 100 Oximetry 11/17/18 11/17/18 11/17/18 11:15 11:31 11:45 Temperature Pulse Rate 65 70 64 Pulse Rate [ From Monitor] Respiratory 11 L 12 17 Rate Blood Pressure 107/40 107/40 97/41 O2 Sat by Pulse 100 100 100 Oximetry 11/17/18 11/17/18 11/17/18 12:00 12:01 12:15 Temperature 97.6 F Pulse Rate 63 61 Pulse Rate [ From Monitor] Respiratory 15 17 Rate Blood Pressure 97/45 97/45 O2 Sat by Pulse 100 100 Oximetry 11/17/18 11/17/18 11/17/18 12:31 12:45 13:01 Temperature Pulse Rate 59 L 60 58 L Pulse Rate [ From Monitor] Respiratory 13 15 13 Rate Blood Pressure 101/43 101/43 106/44 O2 Sat by Pulse 100 100 100 Oximetry 08/20/19 08/20/19 08/20/19 13:15 13:31 13:45 Temperature Pulse Rate 59 L 58 L 58 L Pulse Rate [ From Monitor] Respiratory 15 13 13 Rate Blood Pressure 106/44 98/45 98/45 O2 Sat by Pulse 100 100 100 Oximetry 11/17/18 14:01 Temperature Pulse Rate 57 L Pulse Rate [ From Monitor] Respiratory 12 Rate Blood Pressure 108/52 O2 Sat by Pulse 100 Oximetry Constitutional: no acute distress, other (on vent, trach in place, no patient- ventilator dys-synchrony) Eyes: non-icteric ENT: oropharynx moist Neck: supple, no lymphadenopathy, no JVD Effort: normal Ascultation: Bilateral: diminished breath sounds Cardiovascular: regular rate and rhythm, other (S1,S2) Gastrointestinal: normoactive bowel sounds, soft, non-distended, other (PEG in place, chronic douglass catheter) Integumentary: decubitus ulcer (see wound care notes) Extremities: no cyanosis Neurologic: unable to assess (on vent), other (encephalopathic, unresponsive) Psychiatric: other (unable to assess) CBC and BMP: 11/17/18 04:49 11/17/18 04:49 ABG, PT/INR, D-dimer: ABG POC ABG pH 7.463 (7.35-7.45) H 11/14/18 05:46 ABG pH 7.406 pH Units (7.350-7.450) 11/17/18 Unknown POC ABG pCO2 38.3 (35-45) 11/14/18 05:46 ABG pCO2 35.7 mm Hg 11/17/18 Unknown POC ABG pO2 136 (80-105) H 11/14/18 05:46 ABG pO2 105.9 mm Hg (80.0-90.0) H 11/17/18 Unknown POC ABG HCO3 27.4 (22-26 mml/L) 11/14/18 05:46 POC ABG Total CO2 29 (23-27mmol/L) 11/14/18 05:46 POC ABG O2 Sat 99 11/14/18 05:46 ABG O2 Saturation 97.9 % (95.0-99.0) 11/17/18 Unknown Abnormal lab findings: Abnormal Labs 11/13/18 11/13/1811/13/19 03:30 14:00 14:00 WBC 3.8 L RBC 2.80 L Hgb 7.4 L Hct 22.9 L MCV 82 L MCH 27 L MCHC RDW 19.0 H Seg Neuts % (Manual) 87.0 H Lymphocytes % (Manual) 5.0 L Eosinophils % (Manual) 7.0 H Lymphocytes # (Manual) 0.2 L POC ABG pH POC ABG pO2 ABG pO2 ABG Base Excess ABG Hemoglobin Sodium 147 H Potassium Chloride Carbon Dioxide 33 H BUN 50 H Creatinine Glucose 193 H POC Glucose Lactic Acid 3.70 H* Calcium 8.1 L AST 154 H ALT 134 H Alkaline Phosphatase 586 H Total Creatine Kinase CK-MB (CK-2) Troponin T NT-Pro-B Natriuret Pep Albumin 1.2 L Triglycerides LDL Cholesterol Direct HDL Cholesterol Urine WBC (Auto) Crossmatch 11/13/18 11/13/18 11/13/18 14:00 14:44 14:49 WBC RBC Hgb Hct MCV MCH MCHC RDW Seg Neuts % (Manual) Lymphocytes % (Manual) Eosinophils % (Manual) Lymphocytes # (Manual) POC ABG pH POC ABG pO2 ABG pO2 ABG Base Excess ABG Hemoglobin Sodium Potassium Chloride Carbon Dioxide BUN Creatinine Glucose POC Glucose Lactic Acid 2.60 H* Calcium AST ALT Alkaline Phosphatase Total Creatine Kinase 510 H CK-MB (CK-2) 4.4 H Troponin T 0.348 H* NT-Pro-B Natriuret Pep 3679 H Albumin Triglycerides 284 H LDL Cholesterol Direct 4 L HDL Cholesterol 7 L Urine WBC (Auto) 36.0 H Crossmatch 11/13/18 11/13/18 11/13/18 14:49 14:49 14:52 WBC RBC Hgb Hct MCV MCH MCHC RDW Seg Neuts % (Manual) Lymphocytes % (Manual) Eosinophils % (Manual) Lymphocytes # (Manual) POC ABG pH POC ABG pO2 ABG pO2 ABG Base Excess ABG Hemoglobin Sodium Potassium Chloride Carbon Dioxide BUN Creatinine Glucose POC Glucose 205 H Lactic Acid 3.90 H* Calcium AST ALT Alkaline Phosphatase Total Creatine Kinase CK-MB (CK-2) Troponin T NT-Pro-B Natriuret Pep Albumin Triglycerides LDL Cholesterol Direct HDL Cholesterol Urine WBC (Auto) Crossmatch See Detail 11/13/18 11/13/18 11/13/18 16:58 17:13 19:46 WBC RBC Hgb Hct MCV MCH MCHC RDW Seg Neuts % (Manual) Lymphocytes % (Manual) Eosinophils % (Manual) Lymphocytes # (Manual) POC ABG pH 7.573 H POC ABG pO2 ABG pO2 ABG Base Excess ABG Hemoglobin Sodium Potassium Chloride Carbon Dioxide BUN Creatinine Glucose POC Glucose Lactic Acid 3.90 H* 4.40 H* Calcium AST ALT Alkaline Phosphatase Total Creatine Kinase CK-MB (CK-2) Troponin T NT-Pro-B Natriuret Pep Albumin Triglycerides LDL Cholesterol Direct HDL Cholesterol Urine WBC (Auto) Crossmatch 11/13/18 11/14/18 11/14/18 21:34 04:50 05:23 WBC RBC Hgb Hct MCV MCH MCHC RDW Seg Neuts % (Manual) Lymphocytes % (Manual) Eosinophils % (Manual) Lymphocytes # (Manual) POC ABG pH POC ABG pO2 ABG pO2 120.8 H ABG Base Excess ABG Hemoglobin 10.9 L Sodium Potassium Chloride Carbon Dioxide BUN Creatinine Glucose POC Glucose 263 H Lactic Acid 4.50 H* Calcium AST ALT Alkaline Phosphatase Total Creatine Kinase CK-MB (CK-2) Troponin T NT-Pro-B Natriuret Pep Albumin Triglycerides LDL Cholesterol Direct HDL Cholesterol Urine WBC (Auto) Crossmatch 11/14/18 11/14/18 11/14/18 05:46 08:02 12:42 WBC RBC Hgb Hct MCV MCH MCHC RDW Seg Neuts % (Manual) Lymphocytes % (Manual) Eosinophils % (Manual) Lymphocytes # (Manual) POC ABG pH 7.463 H POC ABG pO2 136 H ABG pO2 ABG Base Excess ABG Hemoglobin Sodium Potassium Chloride Carbon Dioxide BUN Creatinine Glucose POC Glucose 213 H Lactic Acid 2.70 H* Calcium AST ALT Alkaline Phosphatase Total Creatine Kinase CK-MB (CK-2) Troponin T NT-Pro-B Natriuret Pep Albumin Triglycerides LDL Cholesterol Direct HDL Cholesterol Urine WBC (Auto) Crossmatch 11/14/18 11/14/18 11/14/18 14:17 14:17 15:50 WBC 13.1 H 13.1 H RBC 2.36 L 2.36 L Hgb 6.1 L 6.1 L Hct 19.6 L* 19.4 L* MCV 83 L 82 L MCH 26 L 26 L MCHC 31 L 31 L RDW 19.4 H 19.3 H Seg Neuts % (Manual) Lymphocytes % (Manual) Eosinophils % (Manual) Lymphocytes # (Manual) POC ABG pH POC ABG pO2 ABG pO2 ABG Base Excess ABG Hemoglobin Sodium 148 H Potassium Chloride 110.3 H Carbon Dioxide BUN 56 H Creatinine Glucose 203 H POC Glucose Lactic Acid Calcium 7.6 L AST ALT Alkaline Phosphatase Total Creatine Kinase CK-MB (CK-2) Troponin T NT-Pro-B Natriuret Pep Albumin Triglycerides LDL Cholesterol Direct HDL Cholesterol Urine WBC (Auto) Crossmatch 11/14/18 11/14/18 11/15/18 18:19 23:52 05:10 WBC 16.2 H RBC 3.22 L Hgb 8.8 L Hct 26.8 L D MCV 83 L MCH 27 L MCHC RDW 16.8 H Seg Neuts % (Manual) Lymphocytes % (Manual) Eosinophils % (Manual) Lymphocytes # (Manual) POC ABG pH POC ABG pO2 ABG pO2 ABG Base Excess ABG Hemoglobin Sodium Potassium Chloride Carbon Dioxide BUN Creatinine Glucose POC Glucose 213 H 242 H Lactic Acid Calcium AST ALT Alkaline Phosphatase Total Creatine Kinase CK-MB (CK-2) Troponin T NT-Pro-B Natriuret Pep Albumin Triglycerides LDL Cholesterol Direct HDL Cholesterol Urine WBC (Auto) Crossmatch 11/15/18 11/15/18 11/15/18 05:10 05:36 11:15 WBC RBC Hgb Hct MCV MCH MCHC RDW Seg Neuts % (Manual) Lymphocytes % (Manual) Eosinophils % (Manual) Lymphocytes # (Manual) POC ABG pH POC ABG pO2 ABG pO2 ABG Base Excess ABG Hemoglobin Sodium 148 H Potassium 3.5 L Chloride 112.8 H Carbon Dioxide BUN 51 H Creatinine Glucose 154 H POC Glucose 143 H 139 H Lactic Acid Calcium 7.8 L AST ALT Alkaline Phosphatase Total Creatine Kinase CK-MB (CK-2) Troponin T NT-Pro-B Natriuret Pep Albumin Triglycerides LDL Cholesterol Direct HDL Cholesterol Urine WBC (Auto) Crossmatch 11/15/18 11/15/18 11/15/18 12:00 18:28 20:56 WBC RBC Hgb Hct MCV MCH MCHC RDW Seg Neuts % (Manual) Lymphocytes % (Manual) Eosinophils % (Manual) Lymphocytes # (Manual) POC ABG pH POC ABG pO2 ABG pO2 ABG Base Excess ABG Hemoglobin Sodium 148 H Potassium 3.2 L Chloride 113.0 H Carbon Dioxide BUN 44 H Creatinine Glucose 144 H POC Glucose 159 H 150 H Lactic Acid Calcium 7.7 L AST ALT Alkaline Phosphatase Total Creatine Kinase CK-MB (CK-2) Troponin T NT-Pro-B Natriuret Pep Albumin Triglycerides LDL Cholesterol Direct HDL Cholesterol Urine WBC (Auto) Crossmatch 11/15/18 11/16/18 11/16/18 23:32 03:40 03:45 WBC 16.1 H RBC 3.30 L Hgb 8.9 L Hct 27.9 L MCV MCH 27 L MCHC RDW 17.5 H Seg Neuts % (Manual) Lymphocytes % (Manual) Eosinophils % (Manual) Lymphocytes # (Manual) POC ABG pH POC ABG pO2 ABG pO2 147.0 H ABG Base Excess ABG Hemoglobin 12.0 L Sodium Potassium Chloride Carbon Dioxide BUN Creatinine Glucose POC Glucose 131 H Lactic Acid Calcium AST ALT Alkaline Phosphatase Total Creatine Kinase CK-MB (CK-2) Troponin T NT-Pro-B Natriuret Pep Albumin Triglycerides LDL Cholesterol Direct HDL Cholesterol Urine WBC (Auto) Crossmatch 11/16/18 11/16/18 11/16/18 03:45 05:15 15:14 WBC RBC Hgb Hct MCV MCH MCHC RDW Seg Neuts % (Manual) Lymphocytes % (Manual) Eosinophils % (Manual) Lymphocytes # (Manual) POC ABG pH POC ABG pO2 ABG pO2 ABG Base Excess ABG Hemoglobin Sodium 149 H Potassium 3.5 L Chloride 116.2 H Carbon Dioxide 21 L BUN 41 H Creatinine Glucose 146 H POC Glucose 155 H 215 H Lactic Acid Calcium 7.7 L AST ALT Alkaline Phosphatase Total Creatine Kinase CK-MB (CK-2) Troponin T NT-Pro-B Natriuret Pep Albumin Triglycerides LDL Cholesterol Direct HDL Cholesterol Urine WBC (Auto) Crossmatch 11/16/18 11/16/18 11/17/18 18:20 23:49 04:49 WBC 12.1 H RBC 3.34 L Hgb 9.0 L Hct 28.1 L MCV MCH 27 L MCHC RDW 17.5 H Seg Neuts % (Manual) Lymphocytes % (Manual) Eosinophils % (Manual) Lymphocytes # (Manual) POC ABG pH POC ABG pO2 ABG pO2 ABG Base Excess ABG Hemoglobin Sodium Potassium Chloride Carbon Dioxide BUN Creatinine Glucose POC Glucose 230 H 189 H Lactic Acid Calcium AST ALT Alkaline Phosphatase Total Creatine Kinase CK-MB (CK-2) Troponin T NT-Pro-B Natriuret Pep Albumin Triglycerides LDL Cholesterol Direct HDL Cholesterol Urine WBC (Auto) Crossmatch 11/17/18 11/17/18 11/17/18 04:49 05:45 Unknown WBC RBC Hgb Hct MCV MCH MCHC RDW Seg Neuts % (Manual) Lymphocytes % (Manual) Eosinophils % (Manual) Lymphocytes # (Manual) POC ABG pH POC ABG pO2 ABG pO2 105.9 H ABG Base Excess -2.3 L ABG Hemoglobin 11.5 L Sodium 150 H Potassium 3.2 L Chloride 118.9 H Carbon Dioxide 20 L BUN 38 H Creatinine 0.7 L Glucose 164 H POC Glucose 181 H Lactic Acid Calcium 7.7 L AST ALT Alkaline Phosphatase Total Creatine Kinase CK-MB (CK-2) Troponin T NT-Pro-B Natriuret Pep Albumin Triglycerides LDL Cholesterol Direct HDL Cholesterol Urine WBC (Auto) Crossmatch Chest x-ray: image reviewed (Incresed alveolar infiltrates) Allied health notes reviewed: RT
[2018-11-17] MEDS ORDERED: SIMPLE SYRUP FEEDTUBE PRN ×2 (14:24)
[2018-11-17] MEDS ORDERED: PANCREAZE DR 10,500 UNIT FEEDTUBE PRN (14:24)
[2018-11-17] MEDS ORDERED: SODIUM BICARBONATE FEEDTUBE PRN (14:24)
[2018-11-18] MEDS: HumaLOG SUB-Q SCH ×4 (00:40→18:09)
[2018-11-18 04:58] LABS: ABG Base Excess -3.2 mmol/L (-2.0-3.0); ABG HCO3 20.9 mmol/L (20.0-26.0); ABG Methemoglobin 0.5 % (0.0-1.5); ABG Oxygen Saturation 97.8 % (95.0-99.0); ABG PCO2 34.3 mm Hg; ABG PH 7.404 pH Units (7.350-7.450); ABG PO2 101.8 mm Hg (80.0-90.0)
[2018-11-18 05:32] LABS: Basophils # (Auto) 0.1 K/mm3 (0.0-0.1); Basophils % (Auto) 0.5 % (0.0-1.8); Eosinophils # (Auto) 0.3 K/mm3 (0.0-0.4); Eosinophils % (Auto) 2.4 % (0.0-4.3); Hematocrit 26.8 % (35.5-45.6); Hemoglobin 8.5 gm/dl (11.8-15.2); Lymphocytes # (Auto) 1.3 K/mm3 (1.2-5.4); Lymphocytes % (Auto) 12.8 % (13.4-35.0); Mean Corpuscular HGB Conc 32 % (32-34); Mean Corpuscular Volume 86 fl (84-94); Monocytes # (Auto) 0.9 K/mm3 (0.0-0.8); Monocytes % (Auto) 8.5 % (0.0-7.3); Platelet Count 199 K/mm3 (140-440); Red Cell Distribution Width 17.8 % (13.2-15.2)
[2018-11-18 05:50] LABS: BUN/Creatinine Ratio 46; Blood Urea Nitrogen 32 mg/dL (9-20); Calcium 7.4 mg/dL (8.4-10.2); Hemolysis Index 4
[2018-11-18] MEDS ORDERED: POTASSIUM CHLORIDE FEEDTUBE ONE (09:00)
[2018-11-18] MEDS: HEPARIN SUB-Q SCH ×2 (10:07→21:21)
[2018-11-18] MEDS: PREVACID SOLUTAB FEEDTUBE SCH (10:07)
[2018-11-18] MEDS: ZYVOX 600MG/300ML 600 MG/300 ML BAG IV SCH ×2 (10:08→21:21)
[2018-11-18] MEDS: DAKIN'S HALF STRENGTH TP SCH ×2 (10:09→21:24)
--- NOTE | 2018-11-18 10:45 | Progress Note ---
Assessment and Plan -Acute on chronic hypoxic respiratory failure on MVS -Severe sepsis with shock, off vasopressors -VRE bacteremia -UTI -Large sacaral decubitus ulcer -Acute on chronic metabolic encephalopathy -Orophargyngeal dysphagia s/p PEG -h/o CVAs -Transaminitis probably secondary to hypotension -Type 2 DM -Hypernatremia -Hypokalemia -VAP bundle addressed -Trach care, airway clearance and secretion management -Lung protective strategies -Accuchecks with glycemic control, continue with insulin infusion per protocol -Douglass catheter for accurate intake and output monitoring in this critically ill patient with history of chronic douglass/urinary retention -Avoid nephrotoxins -VTE prophylaxis -Stress ulcer prophylaxis -Antibiotics per ID, de-escalate as indicated -Daily SAT and SBT -Mobility and off loading for sacral decubitus -Wound care -Free water flushes and hypotonic solutions for hypernatremia -Optimize nutrition to help promote wound healing -Supportive transfusions as indicated, to keep HgB>7g/dL -Vasopressor support as indicated for MAP<65, with blood pressure unresponsive to volume resuscitation -Continue to monitor hemodynamics closely -Keep Potassium at 4, to optimize respiratory muscle function General surgery consult notes reviewed- poor candidate for wound debridement, poor chances of wound healing. Awaiting family decisions re goals of care CONDITION: CRITICAL PROGNOSIS; POOR CODE STATUS: FULL Discussed care plan with RT and RN. Discussed during ICU-IDT rounds Goals of care need to be re-addressed with family The high probability of a clinically significant, sudden or life threatening deterioration of the respiratory, cardiovascular,endocrine, system(s) required my full and direct attention, intervention and personal management. The aggregate critical care time was [35] minutes. This time is in addition to time spent performing reported procedures but includes the following: [x] Data Review and interpretation [x]Patient assessment and monitoring of vital signs [x] Documentation [x] Medication orders and management Subjective Date of service: 11/18/18 Interval history: Patient known to our service. Per family request, care is being transferred back to us Patient is seen today for: Severe sepsis with septic shock; Acute and chronic respiratory failure on MVS; Acute and chronic metabolic encephalopathy; Seen and examined at bedside; 24hour events reviewed; nursing and respiratory care staff consulted; resting peacefully in bed; tolerating PSV this morning, remains off vasopressor support; Vitals, labs, medications, chart reviewed. AMS is persistent; tolerating tube feeds; afebrile; Objective Vital Signs - 12hr 11/17/18 11/17/18 11/17/18 23:01 23:15 23:31 Temperature Pulse Rate 57 L 58 L 59 L Pulse Rate [ From Monitor] Respiratory 12 16 14 Rate Blood Pressure 111/45 111/45 114/45 O2 Sat by Pulse 100 100 100 Oximetry O2 Sat by Pulse Oximetry [ Assessment] 11/17/18 11/17/18 11/18/18 23:45 23:50 00:00 Temperature 96.7 F L Pulse Rate 58 L 58 L Pulse Rate [ 59 L From Monitor] Respiratory 14 12 Rate Blood Pressure 114/45 113/41 O2 Sat by Pulse 100 100 100 Oximetry O2 Sat by Pulse 100 Oximetry [ Assessment] 11/18/18 11/18/18 11/18/18 00:01 00:15 00:31 Temperature Pulse Rate 59 L 59 L 60 Pulse Rate [ From Monitor] Respiratory 12 15 13 Rate Blood Pressure 123/52 123/52 109/50 O2 Sat by Pulse 100 100 100 Oximetry O2 Sat by Pulse Oximetry [ Assessment] 11/18/18 11/18/18 11/18/18 00:45 01:01 01:15 Temperature Pulse Rate 59 L 60 60 Pulse Rate [ From Monitor] Respiratory 15 12 16 Rate Blood Pressure 109/50 109/47 109/47 O2 Sat by Pulse 100 100 100 Oximetry O2 Sat by Pulse Oximetry [ Assessment] 11/18/18 11/18/18 11/18/18 01:31 02:00 02:31 Temperature Pulse Rate 59 L 60 61 Pulse Rate [ From Monitor] Respiratory 12 15 16 Rate Blood Pressure 114/45 114/45 116/54 O2 Sat by Pulse 100 100 100 Oximetry O2 Sat by Pulse Oximetry [ Assessment] 11/18/18 11/18/18 11/18/18 03:00 03:31 04:00 Temperature 96.5 F L Pulse Rate 64 59 L Pulse Rate [ 59 L From Monitor] Respiratory 14 12 16 Rate Blood Pressure 120/49 122/49 O2 Sat by Pulse 100 100 Oximetry O2 Sat by Pulse Oximetry [ Assessment] 11/18/18 11/18/18 11/18/18 04:01 04:31 04:36 Temperature Pulse Rate 59 L 60 61 Pulse Rate [ From Monitor] Respiratory 16 15 Rate Blood Pressure 121/53 104/60 104/60 O2 Sat by Pulse 100 100 100 Oximetry O2 Sat by Pulse Oximetry [ Assessment] 11/18/18 11/18/18 11/18/18 05:01 05:31 06:01 Temperature Pulse Rate 56 L 59 L 60 Pulse Rate [ From Monitor] Respiratory 12 12 13 Rate Blood Pressure 134/54 133/44 127/51 O2 Sat by Pulse 100 100 100 Oximetry O2 Sat by Pulse Oximetry [ Assessment] 11/18/18 11/18/18 11/18/18 06:31 07:01 07:29 Temperature Pulse Rate 59 L 60 62 Pulse Rate [ From Monitor] Respiratory 12 14 17 Rate Blood Pressure 118/53 134/50 119/48 O2 Sat by Pulse 100 100 100 Oximetry O2 Sat by Pulse Oximetry [ Assessment] 11/18/18 11/18/18 11/18/18 07:31 08:00 08:01 Temperature 97.4 F L Pulse Rate 61 60 Pulse Rate [ 61 From Monitor] Respiratory 16 16 13 Rate Blood Pressure 119/48 127/47 O2 Sat by Pulse 100 100 100 Oximetry O2 Sat by Pulse Oximetry [ Assessment] 11/18/18 11/18/18 11/18/18 08:22 08:31 09:01 Temperature Pulse Rate 61 61 Pulse Rate [ From Monitor] Respiratory 19 13 Rate Blood Pressure 109/49 108/51 O2 Sat by Pulse 100 100 Oximetry O2 Sat by Pulse 98 Oximetry [ Assessment] 11/18/18 11/18/18 09:31 10:01 Temperature Pulse Rate 63 61 Pulse Rate [ From Monitor] Respiratory 21 20 Rate Blood Pressure 133/59 130/57 O2 Sat by Pulse 100 100 Oximetry O2 Sat by Pulse Oximetry [ Assessment] Constitutional: no acute distress, other (on vent, trach in place, no patient- ventilator dys-synchrony) Eyes: non-icteric ENT: oropharynx moist Neck: supple, no lymphadenopathy, no JVD Effort: normal Ascultation: Bilateral: diminished breath sounds Cardiovascular: regular rate and rhythm, other (S1,S2) Gastrointestinal: normoactive bowel sounds, soft, non-distended, other (PEG in place, chronic douglass catheter) Integumentary: decubitus ulcer (see wound care notes) Extremities: no cyanosis Neurologic: unable to assess (on vent), other (encephalopathic, unresponsive) Psychiatric: other (unable to assess) CBC and BMP: 11/21/18 03:09 11/21/18 03:09 ABG, PT/INR, D-dimer: ABG POC ABG pH 7.463 (7.35-7.45) H 11/14/18 05:46 ABG pH 7.404 pH Units (7.350-7.450) 11/18/18 04:10 POC ABG pCO2 38.3 (35-45) 11/14/18 05:46 ABG pCO2 34.3 mm Hg 11/18/18 04:10 POC ABG pO2 136 (80-105) H 11/14/18 05:46 ABG pO2 101.8 mm Hg (80.0-90.0) H 11/18/18 04:10 POC ABG HCO3 27.4 (22-26 mml/L) 11/14/18 05:46 POC ABG Total CO2 29 (23-27mmol/L) 11/14/18 05:46 POC ABG O2 Sat 99 11/14/18 05:46 ABG O2 Saturation 97.8 % (95.0-99.0) 11/18/18 04:10 Abnormal lab findings: Abnormal Labs 11/13/18 11/13/18 11/13/18 03:30 14:00 14:00 WBC 3.8 L RBC 2.80 L Hgb 7.4 L Hct 22.9 L MCV 82 L MCH 27 L MCHC RDW 19.0 H Lymph % (Auto) Henry % (Auto) Henry # Seg Neutrophils % Seg Neuts % (Manual) 87.0 H Lymphocytes % (Manual) 5.0 L Eosinophils % (Manual) 7.0 H Seg Neutrophils # Lymphocytes # (Manual) 0.2 L POC ABG pH POC ABG pO2 ABG pO2 ABG Base Excess ABG Hemoglobin Sodium 147 H Potassium Chloride Carbon Dioxide 33 H BUN 50 H Creatinine Glucose 193 H POC Glucose Lactic Acid 3.70 H* Calcium 8.1 L AST 154 H ALT 134 H Alkaline Phosphatase 586 H Total Creatine Kinase CK-MB (CK-2) Troponin T NT-Pro-B Natriuret Pep Albumin 1.2 L Triglycerides LDL Cholesterol Direct HDL Cholesterol Urine WBC (Auto) Crossmatch 11/13/18 11/13/18 11/13/18 14:00 14:44 14:49 WBC RBC Hgb Hct MCV MCH MCHC RDW Lymph % (Auto) Henry % (Auto) Henry # Seg Neutrophils % Seg Neuts % (Manual) Lymphocytes % (Manual) Eosinophils % (Manual) Seg Neutrophils # Lymphocytes # (Manual) POC ABG pH POC ABG pO2 ABG pO2 ABG Base Excess ABG Hemoglobin Sodium Potassium Chloride Carbon Dioxide BUN Creatinine Glucose POC Glucose Lactic Acid 2.60 H* Calcium AST ALT Alkaline Phosphatase Total Creatine Kinase 510 H CK-MB (CK-2) 4.4 H Troponin T 0.348 H* NT-Pro-B Natriuret Pep 3679 H Albumin Triglycerides 284 H LDL Cholesterol Direct 4 L HDL Cholesterol 7 L Urine WBC (Auto) 36.0 H Crossmatch 11/13/18 11/13/18 11/13/18 14:49 14:49 14:52 WBC RBC Hgb Hct MCV MCH MCHC RDW Lymph % (Auto) Henry % (Auto) Henry # Seg Neutrophils % Seg Neuts % (Manual) Lymphocytes % (Manual) Eosinophils % (Manual) Seg Neutrophils # Lymphocytes # (Manual) POC ABG pH POC ABG pO2 ABG pO2 ABG Base Excess ABG Hemoglobin Sodium Potassium Chloride Carbon Dioxide BUN Creatinine Glucose POC Glucose 205 H Lactic Acid 3.90 H* Calcium AST ALT Alkaline Phosphatase Total Creatine Kinase CK-MB (CK-2) Troponin T NT-Pro-B Natriuret Pep Albumin Triglycerides LDL Cholesterol Direct HDL Cholesterol Urine WBC (Auto) Crossmatch See Detail 11/13/18 11/13/18 11/13/18 16:58 17:13 19:46 WBC RBC Hgb Hct MCV MCH MCHC RDW Lymph % (Auto) Henry % (Auto) Henry # Seg Neutrophils % Seg Neuts % (Manual) Lymphocytes % (Manual) Eosinophils % (Manual) Seg Neutrophils # Lymphocytes # (Manual) POC ABG pH 7.573 H POC ABG pO2 ABG pO2 ABG Base Excess ABG Hemoglobin Sodium Potassium Chloride Carbon Dioxide BUN Creatinine Glucose POC Glucose Lactic Acid 3.90 H* 4.40 H* Calcium AST ALT Alkaline Phosphatase Total Creatine Kinase CK-MB (CK-2) Troponin T NT-Pro-B Natriuret Pep Albumin Triglycerides LDL Cholesterol Direct HDL Cholesterol Urine WBC (Auto) Crossmatch 11/13/18 11/14/18 11/14/18 21:34 04:50 05:23 WBC RBC Hgb Hct MCV MCH MCHC RDW Lymph % (Auto) Henry % (Auto) Henry # Seg Neutrophils % Seg Neuts % (Manual) Lymphocytes % (Manual) Eosinophils % (Manual) Seg Neutrophils # Lymphocytes # (Manual) POC ABG pH POC ABG pO2 ABG pO2 120.8 H ABG Base Excess ABG Hemoglobin 10.9 L Sodium Potassium Chloride Carbon Dioxide BUN Creatinine Glucose POC Glucose 263 H Lactic Acid 4.50 H* Calcium AST ALT Alkaline Phosphatase Total Creatine Kinase CK-MB (CK-2) Troponin T NT-Pro-B Natriuret Pep Albumin Triglycerides LDL Cholesterol Direct HDL Cholesterol Urine WBC (Auto) Crossmatch 11/14/18 11/14/18 11/14/18 05:46 08:02 12:42 WBC RBC Hgb Hct MCV MCH MCHC RDW Lymph % (Auto) Henry % (Auto) Henry # Seg Neutrophils % Seg Neuts % (Manual) Lymphocytes % (Manual) Eosinophils % (Manual) Seg Neutrophils # Lymphocytes # (Manual) POC ABG pH 7.463 H POC ABG pO2 136 H ABG pO2 ABG Base Excess ABG Hemoglobin Sodium Potassium Chloride Carbon Dioxide BUN Creatinine Glucose POC Glucose 213 H Lactic Acid 2.70 H* Calcium AST ALT Alkaline Phosphatase Total Creatine Kinase CK-MB (CK-2) Troponin T NT-Pro-B Natriuret Pep Albumin Triglycerides LDL Cholesterol Direct HDL Cholesterol Urine WBC (Auto) Crossmatch 11/14/18 11/14/18 11/14/18 14:17 14:17 15:50 WBC 13.1 H 13.1 H RBC 2.36 L 2.36 L Hgb 6.1 L 6.1 L Hct 19.6 L* 19.4 L* MCV 83 L 82 L MCH 26 L 26 L MCHC 31 L 31 L RDW 19.4 H 19.3 H Lymph % (Auto) Henry % (Auto) Henry # Seg Neutrophils % Seg Neuts % (Manual) Lymphocytes % (Manual) Eosinophils % (Manual) Seg Neutrophils # Lymphocytes # (Manual) POC ABG pH POC ABG pO2 ABG pO2 ABG Base Excess ABG Hemoglobin Sodium 148 H Potassium Chloride 110.3 H Carbon Dioxide BUN 56 H Creatinine Glucose 203 H POC Glucose Lactic Acid Calcium 7.6 L AST ALT Alkaline Phosphatase Total Creatine Kinase CK-MB (CK-2) Troponin T NT-Pro-B Natriuret Pep Albumin Triglycerides LDL Cholesterol Direct HDL Cholesterol Urine WBC (Auto) Crossmatch 11/14/18 11/14/18 11/15/18 18:19 23:52 05:10 WBC 16.2 H RBC 3.22 L Hgb 8.8 L Hct 26.8 L D MCV 83 L MCH 27 L MCHC RDW 16.8 H Lymph % (Auto) Henry % (Auto) Henry # Seg Neutrophils % Seg Neuts % (Manual) Lymphocytes % (Manual) Eosinophils % (Manual) Seg Neutrophils # Lymphocytes # (Manual) POC ABG pH POC ABG pO2 ABG pO2 ABG Base Excess ABG Hemoglobin Sodium Potassium Chloride Carbon Dioxide BUN Creatinine Glucose POC Glucose 213 H 242 H Lactic Acid Calcium AST ALT Alkaline Phosphatase Total Creatine Kinase CK-MB (CK-2) Troponin T NT-Pro-B Natriuret Pep Albumin Triglycerides LDL Cholesterol Direct HDL Cholesterol Urine WBC (Auto) Crossmatch 11/15/18 11/15/18 11/15/18 05:10 05:36 11:15 WBC RBC Hgb Hct MCV MCH MCHC RDW Lymph % (Auto) Henry % (Auto) Henry # Seg Neutrophils % Seg Neuts % (Manual) Lymphocytes % (Manual) Eosinophils % (Manual) Seg Neutrophils # Lymphocytes # (Manual) POC ABG pH POC ABG pO2 ABG pO2 ABG Base Excess ABG Hemoglobin Sodium 148 H Potassium 3.5 L Chloride 112.8 H Carbon Dioxide BUN 51 H Creatinine Glucose 154 H POC Glucose 143 H 139 H Lactic Acid Calcium 7.8 L AST ALT Alkaline Phosphatase Total Creatine Kinase CK-MB (CK-2) Troponin T NT-Pro-B Natriuret Pep Albumin Triglycerides LDL Cholesterol Direct HDL Cholesterol Urine WBC (Auto) Crossmatch 11/15/18 11/15/18 11/15/18 12:00 18:28 20:56 WBC RBC Hgb Hct MCV MCH MCHC RDW Lymph % (Auto) Henry % (Auto) Henry # Seg Neutrophils % Seg Neuts % (Manual) Lymphocytes % (Manual) Eosinophils % (Manual) Seg Neutrophils # Lymphocytes # (Manual) POC ABG pH POC ABG pO2 ABG pO2 ABG Base Excess ABG Hemoglobin Sodium 148 H Potassium 3.2 L Chloride 113.0 H Carbon Dioxide BUN 44 H Creatinine Glucose 144 H POC Glucose 159 H 150 H Lactic Acid Calcium 7.7 L AST ALT Alkaline Phosphatase Total Creatine Kinase CK-MB (CK-2) Troponin T NT-Pro-B Natriuret Pep Albumin Triglycerides LDL Cholesterol Direct HDL Cholesterol Urine WBC (Auto) Crossmatch 11/15/18 11/16/18 11/16/18 23:32 03:40 03:45 WBC 16.1 H RBC 3.30 L Hgb 8.9 L Hct 27.9 L MCV MCH 27 L MCHC RDW 17.5 H Lymph % (Auto) Henry % (Auto) Henry # Seg Neutrophils % Seg Neuts % (Manual) Lymphocytes % (Manual) Eosinophils % (Manual) Seg Neutrophils # Lymphocytes # (Manual) POC ABG pH POC ABG pO2 ABG pO2 147.0 H ABG Base Excess ABG Hemoglobin 12.0 L Sodium Potassium Chloride Carbon Dioxide BUN Creatinine Glucose POC Glucose 131 H Lactic Acid Calcium AST ALT Alkaline Phosphatase Total Creatine Kinase CK-MB (CK-2) Troponin T NT-Pro-B Natriuret Pep Albumin Triglycerides LDL Cholesterol Direct HDL Cholesterol Urine WBC (Auto) Crossmatch 11/16/18 11/16/18 11/16/18 03:45 05:15 15:14 WBC RBC Hgb Hct MCV MCH MCHC RDW Lymph % (Auto) Henry % (Auto) Henry # Seg Neutrophils % Seg Neuts % (Manual) Lymphocytes % (Manual) Eosinophils % (Manual) Seg Neutrophils # Lymphocytes # (Manual) POC ABG pH POC ABG pO2 ABG pO2 ABG Base Excess ABG Hemoglobin Sodium 149 H Potassium 3.5 L Chloride 116.2 H Carbon Dioxide 21 L BUN 41 H Creatinine Glucose 146 H POC Glucose 155 H 215 H Lactic Acid Calcium 7.7 L AST ALT Alkaline Phosphatase Total Creatine Kinase CK-MB (CK-2) Troponin T NT-Pro-B Natriuret Pep Albumin Triglycerides LDL Cholesterol Direct HDL Cholesterol Urine WBC (Auto) Crossmatch 11/16/18 11/16/18 11/17/18 18:20 23:49 04:49 WBC 12.1 H RBC 3.34 L Hgb 9.0 L Hct 28.1 L MCV MCH 27 L MCHC RDW 17.5 H Lymph % (Auto) Henry % (Auto) Henry # Seg Neutrophils % Seg Neuts % (Manual) Lymphocytes % (Manual) Eosinophils % (Manual) Seg Neutrophils # Lymphocytes # (Manual) POC ABG pH POC ABG pO2 ABG pO2 ABG Base Excess ABG Hemoglobin Sodium Potassium Chloride Carbon Dioxide BUN Creatinine Glucose POC Glucose 230 H 189 H Lactic Acid Calcium AST ALT Alkaline Phosphatase Total Creatine Kinase CK-MB (CK-2) Troponin T NT-Pro-B Natriuret Pep Albumin Triglycerides LDL Cholesterol Direct HDL Cholesterol Urine WBC (Auto) Crossmatch 11/17/18 11/17/18 11/17/18 04:49 05:45 14:16 WBC RBC Hgb Hct MCV MCH MCHC RDW Lymph % (Auto) Henry % (Auto) Henry # Seg Neutrophils % Seg Neuts % (Manual) Lymphocytes % (Manual) Eosinophils % (Manual) Seg Neutrophils # Lymphocytes # (Manual) POC ABG pH POC ABG pO2 ABG pO2 ABG Base Excess ABG Hemoglobin Sodium 150 H Potassium 3.2 L Chloride 118.9 H Carbon Dioxide 20 L BUN 38 H Creatinine 0.7 L Glucose 164 H POC Glucose 181 H 172 H Lactic Acid Calcium 7.7 L AST ALT Alkaline Phosphatase Total Creatine Kinase CK-MB (CK-2) Troponin T NT-Pro-B Natriuret Pep Albumin Triglycerides LDL Cholesterol Direct HDL Cholesterol Urine WBC (Auto) Crossmatch 11/17/18 11/17/18 11/18/18 23:36 Unknown 04:10 WBC RBC Hgb Hct MCV MCH MCHC RDW Lymph % (Auto) Henry % (Auto) Henry # Seg Neutrophils % Seg Neuts % (Manual) Lymphocytes % (Manual) Eosinophils % (Manual) Seg Neutrophils # Lymphocytes # (Manual) POC ABG pH POC ABG pO2 ABG pO2 105.9 H 101.8 H ABG Base Excess -2.3 L -3.2 L ABG Hemoglobin 11.5 L 10.2 L Sodium Potassium Chloride Carbon Dioxide BUN Creatinine Glucose POC Glucose 214 H Lactic Acid Calcium AST ALT Alkaline Phosphatase Total Creatine Kinase CK-MB (CK-2) Troponin T NT-Pro-B Natriuret Pep Albumin Triglycerides LDL Cholesterol Direct HDL Cholesterol Urine WBC (Auto) Crossmatch 11/18/18 11/18/18 11/18/18 04:37 04:37 05:36 WBC RBC 3.10 L Hgb 8.5 L Hct 26.8 L MCV MCH 27 L MCHC RDW 17.8 H Lymph % (Auto) 12.8 L Henry % (Auto) 8.5 H Henry # 0.9 H Seg Neutrophils % 75.8 H Seg Neuts % (Manual) Lymphocytes % (Manual) Eosinophils % (Manual) Seg Neutrophils # 8.0 H Lymphocytes # (Manual) POC ABG pH POC ABG pO2 ABG pO2 ABG Base Excess ABG Hemoglobin Sodium 148 H Potassium 3.3 L Chloride 118.3 H Carbon Dioxide 20 L BUN 32 H Creatinine 0.7 L Glucose 154 H POC Glucose 171 H Lactic Acid Calcium 7.4 L AST ALT Alkaline Phosphatase Total Creatine Kinase CK-MB (CK-2) Troponin T NT-Pro-B Natriuret Pep Albumin Triglycerides LDL Cholesterol Direct HDL Cholesterol Urine WBC (Auto) Crossmatch Allied health notes reviewed: RT
--- NOTE | 2018-11-18 11:56 | Progress Note ---
Assessment and Plan Cultures: 11/13 BCx - VRE 11/13 UCx - >100k mixed kole 11/13 Sputum Cx - not run due to contamination 11/16/2018 Blood culture: no growth thus far A/P: 77 yo M PMHx CVA, seizures, HTN, DM2 admitted for worsenign respiratory status. 1. Septic shock secondary to VRE bacteremia: Off pressors. Source: urine v/s large sacral decubitus ulcer. TTE poor windows, if repeat blood cultures remain negative, would not recommend GLORIA since overall prognosis remains extremely poor and he is not going to be a candidate for any valve surgeries. 2. Acute on chronic respiratory failure - CXR with congestion, no focal infiltrate to suggest pneumonia. VRE / Enterococcus rarely causes pneumonia. 3. UTI - Urine cultures with mixed kole. >100 CFU, probably cause of Enterococcal bacteremia outside of evident intra-abdominal pathology. 4. Large sacral decubitus ulcer: appreciate General Surgery recommendations. Agree that prognosis is extremely poor. 5. DM-2 6. Hx of CVA: s/p trach and PEG. 7. Elevated LFTs: probably from sepsis. RUQ US showed collapsed GB, no gallstones, trace ascites and hepatic steatosis. Recs: - continue IV Linezolid 600 mg BID, monitor platelets while on linezolid - f/u repeat blood cultures - continue wound care and contact isolation - overall prognosis remains extremely poor, agree with discussing goals of care. Recommend palliative care / hospice Tiara Corcoran MD, FACP [facility] ([facility] M: [phone] O: [phone] F: [phone] Subjective Date of service: 11/18/18 Interval history: Non verbal. Remains on the vent via trach. No fever. Objective - Exam Narrative Exam: Physical Exam: Constitutional: unresponsive, on vent. Head, Ears, Nose: Normocephalic, atraumatic. External ears, nose normal Eyes: Conjunctivae/corneas clear. No icterus. No ptosis. Neck: trach Oral: unable to examine Cardiovascular: S1, S2 normal. Respiratory: Good air entry, clear to auscultation bilaterally GI: Soft, PEG +; bowel sounds + Musculoskeletal: No pedal edema, no cyanosis. Skin: Large sacral decubitus with eschar with dressing Hem/Lymphatic: No palpable cervical or supraclavicular nodes. No lymphangitis Psych: no agitation Neurological: unresponsive, on vent. - Constitutional Vitals: Vital Signs Temp Pulse Resp BP Pulse Ox 97.4 F L 62 12 136/61 100 11/18/18 08:00 11/18/18 11:01 11/18/18 11:01 11/18/18 11:01 11/18/18 11:01 Temperature -Last 24 Hours Temperature 97.4 F Temperature 96.5 F Temperature 96.7 F Temperature 96.0 F Temperature 97.2 F Temperature 97.6 F - Labs CBC & Chem 7: 11/18/18 04:37 11/18/18 04:37 Labs: Abnormal lab results 11/17/18 11/17/18 11/18/18 Range/Units 14:16 23:36 04:10 RBC (3.65-5.03) M/mm3 Hgb (11.8-15.2) gm/dl Hct (35.5-45.6) % MCH (28-32) pg RDW (13.2-15.2) % Lymph % (Auto) (13.4-35.0) % Hodgeman % (Auto) (0.0-7.3) % Hodgeman # (0.0-0.8) K/mm3 Seg Neutrophils % (40.0-70.0) % Seg Neutrophils # (1.8-7.7) K/mm3 ABG pO2 101.8 H (80.0-90.0) mm Hg ABG Base Excess -3.2 L (-2.0-3.0) mmol/L ABG Hemoglobin 10.2 L (14.0-18.0) gm/dl Sodium (137-145) mmol/L Potassium (3.6-5.0) mmol/L Chloride (98-107) mmol/L Carbon Dioxide (22-30) mmol/L BUN (9-20) mg/dL Creatinine (0.8-1.5) mg/dL Glucose (75-100) mg/dL POC Glucose 172 H 214 H (70-105) Calcium (8.4-10.2) mg/dL 11/18/18 11/18/18 11/18/18 Range/Units 04:37 04:37 05:36 RBC 3.10 L (3.65-5.03) M/mm3 Hgb 8.5 L (11.8-15.2) gm/dl Hct 26.8 L (35.5-45.6) % MCH 27 L (28-32) pg RDW 17.8 H (13.2-15.2) % Lymph % (Auto) 12.8 L (13.4-35.0) % Hodgeman % (Auto) 8.5 H (0.0-7.3) % Hodgeman # 0.9 H (0.0-0.8) K/mm3 Seg Neutrophils % 75.8 H (40.0-70.0) % Seg Neutrophils # 8.0 H (1.8-7.7) K/mm3 ABG pO2 (80.0-90.0) mm Hg ABG Base Excess (-2.0-3.0) mmol/L ABG Hemoglobin (14.0-18.0) gm/dl Sodium 148 H (137-145) mmol/L Potassium 3.3 L (3.6-5.0) mmol/L Chloride 118.3 H (98-107) mmol/L Carbon Dioxide 20 L (22-30) mmol/L BUN 32 H (9-20) mg/dL Creatinine 0.7 L (0.8-1.5) mg/dL Glucose 154 H (75-100) mg/dL POC Glucose 171 H (70-105) Calcium 7.4 L (8.4-10.2) mg/dL
--- NOTE | 2018-11-18 12:04 | Progress Note ---
Assessment and Plan - Patient Problems (1) Sacral decubitus ulcer Current Visit: Yes Status: Acute Qualifiers: Pressure injury stage: unspecified pressure injury stage Qualified Code(s): L89.159 - Pressure ulcer of sacral region, unspecified stage Plan to address problem: Pt stable. Await 's decision. Pt really needs to have hospice care. Spoke to Case Management. During the last admission, hospice was brought up as well. After that, the avoided the staff presumably to avoid making a decision. Time=10min Subjective Date of service: 11/18/18 Patient Reports: Positive: other (no new events. has not returned. ) Objective Vital Signs - 12hr 11/18/18 11/18/18 11/18/18 00:15 00:31 00:45 Temperature Pulse Rate 59 L 60 59 L Pulse Rate [ From Monitor] Respiratory 15 13 15 Rate Blood Pressure 123/52 109/50 109/50 O2 Sat by Pulse 100 100 100 Oximetry O2 Sat by Pulse Oximetry [ Assessment] 11/18/18 11/18/18 11/18/18 01:01 01:15 01:31 Temperature Pulse Rate 60 60 59 L Pulse Rate [ From Monitor] Respiratory 12 16 12 Rate Blood Pressure 109/47 109/47 114/45 O2 Sat by Pulse 100 100 100 Oximetry O2 Sat by Pulse Oximetry [ Assessment] 11/18/18 11/18/18 11/18/18 02:00 02:31 03:00 Temperature Pulse Rate 60 61 64 Pulse Rate [ From Monitor] Respiratory 15 16 14 Rate Blood Pressure 114/45 116/54 120/49 O2 Sat by Pulse 100 100 Oximetry O2 Sat by Pulse Oximetry [ Assessment] 11/18/18 11/18/18 11/18/18 03:31 04:00 04:01 Temperature 96.5 F L Pulse Rate 59 L 59 L Pulse Rate [ 59 L From Monitor] Respiratory 12 16 16 Rate Blood Pressure 122/49 121/53 O2 Sat by Pulse 100 100 100 Oximetry O2 Sat by Pulse Oximetry [ Assessment] 11/18/18 11/18/18 11/18/18 04:31 04:36 05:01 Temperature Pulse Rate 60 61 56 L Pulse Rate [ From Monitor] Respiratory 15 12 Rate Blood Pressure 104/60 104/60 134/54 O2 Sat by Pulse 100 100 100 Oximetry O2 Sat by Pulse Oximetry [ Assessment] 11/18/18 11/18/18 11/18/18 05:31 06:01 06:31 Temperature Pulse Rate 59 L 60 59 L Pulse Rate [ From Monitor] Respiratory 12 13 12 Rate Blood Pressure 133/44 127/51 118/53 O2 Sat by Pulse 100 100 100 Oximetry O2 Sat by Pulse Oximetry [ Assessment] 11/18/18 11/18/18 11/18/18 07:01 07:29 07:31 Temperature Pulse Rate 60 62 61 Pulse Rate [ From Monitor] Respiratory 14 17 16 Rate Blood Pressure 134/50 119/48 119/48 O2 Sat by Pulse 100 100 100 Oximetry O2 Sat by Pulse Oximetry [ Assessment] 11/18/18 11/18/18 11/18/18 08:00 08:01 08:22 Temperature 97.4 F L Pulse Rate 60 Pulse Rate [ 61 From Monitor] Respiratory 16 13 Rate Blood Pressure 127/47 O2 Sat by Pulse 100 100 Oximetry O2 Sat by Pulse 98 Oximetry [ Assessment] 11/18/18 11/18/18 11/18/18 08:31 09:01 09:31 Temperature Pulse Rate 61 61 63 Pulse Rate [ From Monitor] Respiratory 19 13 21 Rate Blood Pressure 109/49 108/51 133/59 O2 Sat by Pulse 100 100 100 Oximetry O2 Sat by Pulse Oximetry [ Assessment] 11/18/18 11/18/18 11/18/18 10:01 10:31 11:01 Temperature Pulse Rate 61 63 62 Pulse Rate [ From Monitor] Respiratory 20 12 12 Rate Blood Pressure 130/57 136/62 136/61 O2 Sat by Pulse 100 100 100 Oximetry O2 Sat by Pulse Oximetry [ Assessment] - General physical appearance no distress, no pain - Respiratory normal expansion, normal respiratory effort - Labs 11/18/18 04:37 11/18/18 04:37 Diabetes panel 11/18/18 Range/Units 04:37 Sodium 148 H (137-145) mmol/L Potassium 3.3 L (3.6-5.0) mmol/L Chloride 118.3 H (98-107) mmol/L Carbon Dioxide 20 L (22-30) mmol/L BUN 32 H (9-20) mg/dL Creatinine 0.7 L (0.8-1.5) mg/dL Glucose 154 H (75-100) mg/dL Calcium 7.4 L (8.4-10.2) mg/dL Calcium panel 11/18/18 Range/Units 04:37 Calcium 7.4 L (8.4-10.2) mg/dL Pituitary panel 11/18/18 Range/Units 04:37 Sodium 148 H (137-145) mmol/L Potassium 3.3 L (3.6-5.0) mmol/L Chloride 118.3 H (98-107) mmol/L Carbon Dioxide 20 L (22-30) mmol/L BUN 32 H (9-20) mg/dL Creatinine 0.7 L (0.8-1.5) mg/dL Glucose 154 H (75-100) mg/dL Calcium 7.4 L (8.4-10.2) mg/dL Adrenal panel 11/18/18 Range/Units 04:37 Sodium 148 H (137-145) mmol/L Potassium 3.3 L (3.6-5.0) mmol/L Chloride 118.3 H (98-107) mmol/L Carbon Dioxide 20 L (22-30) mmol/L BUN 32 H (9-20) mg/dL Creatinine 0.7 L (0.8-1.5) mg/dL Glucose 154 H (75-100) mg/dL Calcium 7.4 L (8.4-10.2) mg/dL
--- NOTE | 2018-11-18 12:23 | Progress Note ---
Assessment and Plan Assessment and plan: Acute on chronic resp failure Cont. tracheostomycare, secretion control and airway mangement Trach to ventilator Pulmonology following Severe Sepsis with septic shock due to VRE off vasopressors Blood cultures Enterococcus Faecium 4 of 4 bottles ID Physician following Continue antibiotics per ID recommendations Sacral decub ulcer. consulted surgery Diabetes mellitus type 2 Fingerstick q4h Anemia s/p 2 Units PRBC stool occult blood neg Hypertension by history. Monitor History of chronic hypoxic encephalopathy Hyperlipidemia Hypernatremia Hypokalemia Replete as needed Full code status Discussed with at bedside. The high probability of a clinically significant, sudden or life threatening deterioration of the respiratory and skin system(s) required my full and direct attention, intervention and personal management. The aggregate critical care time was [32] minutes. This time is in addition to time spent performing reported procedures but includes the following: [x] Data Review and interpretation [x] Patient assessment and monitoring of vital signs [x] Documentation [x] Medication orders and management History Interval history: Patient is 77 yo resident at [facility] with chronic resp failure s/p trach, diabetes, BPH,hypertension, chronic hypoxic encephalopatyhy. He was sent to ED from [facility] facility because of difficulty breathing, respiratory distress. He was seen and evaluated in ED and duagnosed with acute on chronic respiratory failure failure and hypotension. He was put on ventilator since he already had a tracheostomy. He was diagnosed with sepsis with septic shock, started on iv Abx and previously required pressors which are off now Hospitalist Physical - Constitutional Vitals: Temp Pulse Resp BP Pulse Ox 97.4 F L 61 19 137/55 100 11/18/18 12:00 11/18/18 12:04 11/18/18 12:04 11/18/18 12:04 11/18/18 12:04 General appearance: Present: no acute distress, well-nourished, other (intubated on vent) - EENT Eyes: Present: PERRL, EOM intact ENT: hearing intact, clear oral mucosa, dentition normal - Neck Neck: Present: supple, normal ROM - Respiratory Respiratory effort: normal Respiratory: bilateral: CTA - Cardiovascular Rhythm: regular Heart Sounds: Present: S1 & S2. Absent: gallop, rub - Extremities Extremities: no ischemia, No edema, Full ROM - Abdominal General gastrointestinal: soft, non-tender, non-distended, normal bowel sounds - Integumentary Integumentary: Present: clear, warm, dry - Neurologic Neurologic: CNII-XII intact, moves all extremities Results - Labs CBC & Chem 7: 11/18/18 04:37 11/18/18 04:37 Labs: Laboratory Last Values WBC 10.6 K/mm3 (4.5-11.0) 11/18/18 04:37 RBC 3.10 M/mm3 (3.65-5.03) L 11/18/18 04:37 Hgb 8.5 gm/dl (11.8-15.2) L 11/18/18 04:37 Hct 26.8 % (35.5-45.6) L 11/18/18 04:37 MCV 86 fl (84-94) 11/18/18 04:37 MCH 27 pg (28-32) L 11/18/18 04:37 MCHC 32 % (32-34) 11/18/18 04:37 RDW 17.8 % (13.2-15.2) H 11/18/18 04:37 Plt Count 199 K/mm3 (140-440) 11/18/18 04:37 Lymph % (Auto) 12.8 % (13.4-35.0) L 11/18/18 04:37 [place] % (Auto) 8.5 % (0.0-7.3) H 11/18/18 04:37 Eos % (Auto) 2.4 % (0.0-4.3) 11/18/18 04:37 Baso % (Auto) 0.5 % (0.0-1.8) 11/18/18 04:37 Lymph # 1.3 K/mm3 (1.2-5.4) 11/18/18 04:37 [place] # 0.9 K/mm3 (0.0-0.8) H 11/18/18 04:37 Eos # 0.3 K/mm3 (0.0-0.4) 11/18/18 04:37 Baso # 0.1 K/mm3 (0.0-0.1) 11/18/18 04:37 Add Manual Diff Complete 11/13/18 14:00 Total Counted 100 11/13/18 14:00 Seg Neutrophils % 75.8 % (40.0-70.0) H 11/18/18 04:37 Seg Neuts % (Manual) 87.0 % (40.0-70.0) H 11/13/18 14:00 0 % 11/13/18 14:00 5.0 % (13.4-35.0) L 11/13/18 14:00 Reactive Lymphs % (Man) 0 % 11/13/18 14:00 1.0 % (0.0-7.3) 11/13/18 14:00 7.0 % (0.0-4.3) H 11/13/18 14:00 0 % (0.0-1.8) 11/13/18 14:00 0 % 11/13/18 14:00 0 % 11/13/18 14:00 0 % 11/13/18 14:00 0 % 11/13/18 14:00 Nucleated RBC % Not Reportable 11/13/18 14:00 Seg Neutrophils # 8.0 K/mm3 (1.8-7.7) H 11/18/18 04:37 Seg Neutrophils # Man 3.3 K/mm3 (1.8-7.7) 11/13/18 14:00 Band Neutrophils # 0.0 K/mm3 11/13/18 14:00 0.2 K/mm3 (1.2-5.4) L 11/13/18 14:00 Abs React Lymphs (Man) 0.0 K/mm3 11/13/18 14:00 0.0 K/mm3 (0.0-0.8) 11/13/18 14:00 0.3 K/mm3 (0.0-0.4) 11/13/18 14:00 0.0 K/mm3 (0.0-0.1) 11/13/18 14:00 0.0 K/mm3 11/13/18 14:00 0.0 K/mm3 11/13/18 14:00 0.0 K/mm3 11/13/18 14:00 Blast Cells # 0.0 K/mm3 11/13/18 14:00 WBC Morphology Not Reportable 11/13/18 14:00 Hypersegmented Neuts Not Reportable 11/13/18 14:00 Hyposegmented Neuts Not Reportable 11/13/18 14:00 Hypogranular Neuts Not Reportable 11/13/18 14:00 Not Reportable 11/13/18 14:00 Not Reportable 11/13/18 14:00 Not Reportable 11/13/18 14:00 Not Reportable 11/13/18 14:00 Not Reportable 11/13/18 14:00 Not Reportable 11/13/18 14:00 Consistent w auto 11/13/18 14:00 Not Reportable 11/13/18 14:00 Plt Clumps, EDTA Not Reportable 11/13/18 14:00 Not Reportable 11/13/18 14:00 Not Reportable 11/13/18 14:00 Not Reportable 11/13/18 14:00 Plt Morphology Comment Not Reportable 11/13/18 14:00 RBC Morphology Not Reportable 11/13/18 14:00 Dimorphic RBCs Not Reportable 11/13/18 14:00 Few 11/13/18 14:00 Not Reportable 11/13/18 14:00 Few 11/13/18 14:00 1+ 11/13/18 14:00 Not Reportable 11/13/18 14:00 Not Reportable 11/13/18 14:00 Few 11/13/18 14:00 Not Reportable 11/13/18 14:00 Not Reportable 11/13/18 14:00 Not Reportable 11/13/18 14:00 Not Reportable 11/13/18 14:00 Not Reportable 11/13/18 14:00 Not Reportable 11/13/18 14:00 Not Reportable 11/13/18 14:00 Not Reportable 11/13/18 14:00 Not Reportable 11/13/18 14:00 Not Reportable 11/13/18 14:00 Not Reportable 11/13/18 14:00 Not Reportable 11/13/18 14:00 Acanthocytes (Spur) Not Reportable 11/13/18 14:00 Rouleaux Not Reportable 11/13/18 14:00 Not Reportable 11/13/18 14:00 Not Reportable 11/13/18 14:00 Not Reportable 11/13/18 14:00 Not Reportable 11/13/18 14:00 Hem Pathologist Commnt No 11/13/18 14:00 POC ABG pH 7.463 (7.35-7.45) H 11/14/18 05:46 ABG pH 7.404 pH Units (7.350-7.450) 11/18/18 04:10 POC ABG pCO2 38.3 (35-45) 11/14/18 05:46 ABG pCO2 34.3 mm Hg 11/18/18 04:10 POC ABG pO2 136 (80-105) H 11/14/18 05:46 ABG pO2 101.8 mm Hg (80.0-90.0) H 11/18/18 04:10 POC ABG HCO3 27.4 (22-26 mml/L) 11/14/18 05:46 ABG HCO3 20.9 mmol/L (20.0-26.0) 11/18/18 04:10 POC ABG Total CO2 29 (23-27mmol/L) 11/14/18 05:46 POC ABG O2 Sat 99 11/14/18 05:46 ABG O2 Saturation 97.8 % (95.0-99.0) 11/18/18 04:10 ABG O2 Content 13.8 (0.0-44) 11/18/18 04:10 POC ABG Base Excess 4 ((-2) - (+3)mmol/L) 11/14/18 05:46 ABG Base Excess -3.2 mmol/L (-2.0-3.0) L 11/18/18 04:10 ABG Hemoglobin 10.2 gm/dl (14.0-18.0) L 11/18/18 04:10 ABG Carboxyhemoglobin 1.8 % (0.0-5.0) 11/18/18 04:10 ABG Methemoglobin 0.5 % (0.0-1.5) 11/18/18 04:10 95.5 % (95.0-99.0) 11/18/18 04:10 25 % 11/18/18 04:10 Sodium 148 mmol/L (137-145) H 11/18/18 04:37 Potassium 3.3 mmol/L (3.6-5.0) L 11/18/18 04:37 Chloride 118.3 mmol/L (98-107) H 11/18/18 04:37 Carbon Dioxide 20 mmol/L (22-30) L 11/18/18 04:37 13 mmol/L 11/18/18 04:37 BUN 32 mg/dL (9-20) H 11/18/18 04:37 0.7 mg/dL (0.8-1.5) L 11/18/18 04:37 Estimated GFR > 60 ml/min 11/18/18 04:37 46 % 11/18/18 04:37 Glucose 154 mg/dL (75-100) H 11/18/18 04:37 POC Glucose 244 (70-105) H 11/18/18 12:10 Lactic Acid 1.60 mmol/L (0.7-2.0) 11/14/18 12:50 Calcium 7.4 mg/dL (8.4-10.2) L 11/18/18 04:37 Magnesium 2.10 mg/dL (1.7-2.3) 11/15/18 12:00 0.70 mg/dL (0.1-1.2) 11/13/18 14:00 AST 154 units/L (5-40) H 11/13/18 14:00 ALT 134 units/L (7-56) H 11/13/18 14:00 586 units/L (35-129) H 11/13/18 14:00 510 units/L (55-170) H 11/13/18 14:49 CK-MB (CK-2) 4.4 ng/mL (0.0-4.0) H 11/13/18 14:49 CK-MB (CK-2) Rel Index 0.8 (0-4) 11/13/18 14:49 0.348 ng/mL (0.00-0.029) H* 11/13/18 14:49 NT-Pro-B Natriuret Pep 3679 pg/mL (0-900) H 11/13/18 14:49 6.8 g/dL (6.3-8.2) 11/13/18 14:00 1.2 g/dL (3.9-5) L 11/13/18 14:00 0.2 % 11/13/18 14:00 Triglycerides 284 mg/dL (2-149) H 11/13/18 14:49 Cholesterol 56 mg/dL (50-199) 11/13/18 14:49 4 mg/dL (50-130) L 11/13/18 14:49 7 mg/dL (40-59) L 11/13/18 14:49 8.00 % 11/13/18 14:49 Yellow (Yellow) 11/13/18 14:44 Slightly-cloudy (Clear) 11/13/18 14:44 6.0 (5.0-7.0) 11/13/18 14:44 Ur Specific [place] 1.017 (1.003-1.030) 11/13/18 14:44 30 mg/dl mg/dL (Negative) 11/13/18 14:44 Neg mg/dL (Negative) 11/13/18 14:44 Neg mg/dL (Negative) 11/13/18 14:44 Neg (Negative) 11/13/18 14:44 Neg (Negative) 11/13/18 14:44 Neg (Negative) 11/13/18 14:44 4.0 mg/dL (<2.0) 11/13/18 14:44 Ur Leukocyte Esterase Mod (Negative) 11/13/18 14:44 36.0 /HPF (0.0-6.0) H 11/13/18 14:44 21.0 /HPF (0.0-6.0) 11/13/18 14:44 1+ /HPF (Negative) 11/13/18 14:44 Few /HPF 11/13/18 14:44 3+ /HPF 11/13/18 14:44 Hepatitis A IgM Ab Non-reactive (NonReactive) 11/14/18 02:00 Hep Bs Antigen Non-reactive (Negative) 11/14/18 02:00 Hep B Core IgM Ab Non-reactive (NonReactive) 11/14/18 02:00 Non-reactive (NonReactive) 11/14/18 02:00 HIV 1&2 Antibody Rapid Non react (Non React) 11/14/18 02:00 Non react (Non React) 11/14/18 02:00 Blood Type O POSITIVE 11/13/18 14:49 Antibody Screen Negative 11/13/18 14:49 Crossmatch See Detail 11/13/18 14:49 Active Medications - Current Medications Current Medications: Generic Name Dose Route Start Last Admin Trade Name Freq PRN Reason Stop Dose Admin Lipase/Protease/Amylase 1 each 11/14/18 14:20 Pancreaze 10,500 Unit FEEDTUBE PRN PRN For Clogged Feeding Tube Heparin Sodium (Porcine) 5,000 unit 11/14/18 03:30 11/18/18 10:07 Heparin SUB-Q 5,000 unit Q12HR LENCHO Administration Norepinephrine 8 mg/ Sodium 250 mls @ 3.75 mls/hr 11/14/18 09:00 11/18/18 07:38 Chloride IV 0 mcg/min TITR LENCHO 0 mls/hr Titration Protocol 2 MCG/MIN Vasopressin 20 unit/ Sodium 101 mls @ 9.09 mls/hr 11/14/18 09:00 11/15/18 04:05 Chloride IV 0 units/min TITR LENCHO 0 mls/hr Titration Protocol 0.03 UNITS/MIN Linezolid 600 mg in 300 mls @ 300 mls/hr 11/16/18 12:00 11/18/18 10:08 Zyvox 600mg/300ml IV 300 mls/hr Q12HR LENCHO Administration Protocol Insulin Human Lispro 0 unit 11/14/18 06:00 11/18/18 05:54 Humalog SUB-Q 2 unit Q6HR LENCHO Administration Protocol Lansoprazole 30 mg 11/16/18 10:00 11/18/18 10:07 Prevacid Solutab FEEDTUBE 30 mg QDAY LENCHO Administration Simple Syrup 15 ml 11/14/18 14:20 Simple Syrup FEEDTUBE PRN PRN Hypoglycemia Simple Syrup 30 ml 11/14/18 14:20 Simple Syrup FEEDTUBE PRN PRN Hypoglycemia Sodium Bicarbonate 325 mg 11/14/18 14:20 Sodium Bicarbonate FEEDTUBE PRN PRN For Clogged Feeding Tube Sodium Hypochlorite 1 applic 11/16/18 13:00 11/18/18 10:09 Dakin's Half Strength TP 1 applicatio BID LENCHO Administration Nutrition/Malnutrition Assess - Dietary Evaluation Nutrition/Malnutrition Findings: Nutrition Notes Start: 11/14/18 10:33 Freq: Status: Active Protocol: Document 11/18/18 10:37 LM (Rec: 11/18/18 10:59 LM [email or web address]) Nutrition Notes Initial or Follow up Reassessment Current Diagnosis Acute Kidney Injury,Decubitus( Pressure Ulcer),Diabetes, Sepsis,Hypertension,Heart Failure,Respiratory Failure, Stroke Other Pertinent Diagnosis sacral wound, UTI, Dysphagia, Chronic encephalopathy Labs/Tests Na 148 K 3.3 BUN 32 Creat 0.7 BG 154 Pertinent Medications Humalog Height 5 ft 9 in Weight 84 kg Serafina Body Weight (kg) 72.72 BMI 27.3 Subjective/Other Information TF was restarted and Vital AF 1.2 running at 30 ml/hr. Pt is tolerating well. Percent of energy/protein needs met: 46%/53% Burn Absent Trauma Absent #1 Nutrition Diagnosis Inadequate oral intake Diagnosis Progress(for reassessment Continues documentation) Is patient on ventilator? Yes Is Patient Ambulatory and/or Out of Bed No REE-([facility]-confined to bed) 0823.115 Calculation Used for Recommendations [facility] Additional Notes Pro needs 1.2-2g/k-168g/ day Fluid needs 1ml/kcal Nutrition Intervention Change Diet Order: Continue TF Nutrition Support: Vital AF 1.2 at 60ml/hr with 100ml water flush q4h. Kcal 1,728 Protein (gm) 108 Carbohydrates (gm) 159 Fat (gm) 78 Fluid (mL) 1,168 Fiber (gm) 7 Goal #1 TF tolerance Goal #2 TF to meet at least 75% of energy and protein needs Anticipated Discharge Needs: Continue TF Follow-Up By: 11/20/18 Additional Comments F/U for TF tolerance and rate
[2018-11-19 04:50] LABS: BUN/Creatinine Ratio 47; Blood Urea Nitrogen 28 mg/dL (9-20); Calcium 7.6 mg/dL (8.4-10.2); Hemolysis Index 26
[2018-11-19 05:49] LABS: ABG HCO3 20.3 mmol/L (20.0-26.0); ABG Methemoglobin 0.5 % (0.0-1.5); ABG Oxygen Saturation 97.5 % (95.0-99.0); ABG PCO2 32.9 mm Hg; ABG PH 7.409 pH Units (7.350-7.450); ABG PO2 95.5 mm Hg (80.0-90.0)
[2018-11-19] MEDS: HumaLOG SUB-Q SCH ×6 (06:53→23:43)
[2018-11-19 07:14] LABS: Basophils % (Auto) 0.4 % (0.0-1.8); Eosinophils # (Auto) 0.3 K/mm3 (0.0-0.4); Eosinophils % (Auto) 2.8 % (0.0-4.3); Hematocrit 28.2 % (35.5-45.6); Lymphocytes # (Auto) 1.8 K/mm3 (1.2-5.4); Lymphocytes % (Auto) 18.7 % (13.4-35.0); Mean Corpuscular HGB Conc 32 % (32-34); Mean Corpuscular Volume 86 fl (84-94); Monocytes # (Auto) 1.1 K/mm3 (0.0-0.8); Platelet Count 211 K/mm3 (140-440); Red Blood Count 3.28 M/mm3 (3.65-5.03); Red Cell Distribution Width 17.9 % (13.2-15.2)
[2018-11-19] MEDS: PREVACID SOLUTAB FEEDTUBE SCH (09:35)
[2018-11-19] MEDS: HEPARIN SUB-Q SCH ×2 (09:36→21:28)
[2018-11-19] MEDS: DAKIN'S HALF STRENGTH TP SCH ×2 (09:40→21:40)
[2018-11-19] MEDS: ZYVOX 600MG/300ML 600 MG/300 ML BAG IV SCH (09:41)
[2018-11-19] MEDS: ZYVOX PO SCH ×2 (09:42→21:28)
--- NOTE | 2018-11-19 10:06 | Progress Note ---
Assessment and Plan Cultures: 11/13 BCx - VRE 11/13 UCx - >100k mixed kole 11/13 Sputum Cx - not run due to contamination 11/16/2018 Blood culture: no growth thus far A/P: 77 yo M PMHx CVA, seizures, HTN, DM2 admitted for worsenign respiratory status. 1. Septic shock secondary to VRE bacteremia: Off pressors. Source: urine v/s large sacral decubitus ulcer. TTE poor windows, if repeat blood cultures remain negative, would not recommend GLORIA since overall prognosis remains extremely poor and he is not going to be a candidate for any valve surgeries. 2. Acute on chronic respiratory failure - CXR with congestion, no focal infiltrate to suggest pneumonia. VRE / Enterococcus rarely causes pneumonia. 3. UTI - Urine cultures with mixed kole. >100 CFU, probably cause of Enterococcal bacteremia. 4. Large sacral decubitus ulcer, infected, with eschar: could be the source of the VRE bacteremia. Appreciate General Surgery recommendations. Agree that prognosis is extremely poor and no plans for surgical debridement 5. DM-2 6. Hx of CVA: s/p trach and PEG. 7. Elevated LFTs: probably from sepsis. RUQ US showed collapsed GB, no gallstones, trace ascites and hepatic steatosis. Recs: - continue Linezolid 600 mg BID can change to PO, d/w ICU pharmacist. Today is Day 4 of 14 day therapy - monitor platelets while on linezolid - continue wound care and contact isolation - overall prognosis remains extremely poor. I had a discussion with the at bedside, explained poor prognosis given his underlying condition. He remains at risk of non-healing decubiti, UTIs and recurrent infectious complications from MDR organisms. Recommended palliative care / hospice. Tiara Corcoran MD, FACP [facility] M: [phone] O: [phone] F: [phone] Subjective Date of service: 11/19/18 Interval history: No fever. Otherwise status quo. at bedside. Objective - Exam Narrative Exam: Physical Exam: Constitutional: unresponsive, on vent. Head, Ears, Nose: Normocephalic, atraumatic. External ears, nose normal Eyes: Conjunctivae/corneas clear. No icterus. No ptosis. Neck: trach Oral: unable to examine Cardiovascular: S1, S2 normal. Respiratory: Good air entry, clear to auscultation bilaterally GI: Soft, PEG +; bowel sounds + Musculoskeletal: 2+ pedal edema +, no cyanosis. Skin: Large sacral decubitus with eschar with dressing Hem/Lymphatic: No palpable cervical or supraclavicular nodes. No lymphangitis Psych: no agitation Neurological: unresponsive, on vent. - Constitutional Vitals: Vital Signs Temp Pulse Resp BP Pulse Ox 97.3 F L 59 L 20 147/58 100 11/19/18 07:44 11/19/18 08:31 11/19/18 08:31 11/19/18 09:27 11/19/18 09:27 Temperature -Last 24 Hours Temperature 97.3 F Temperature 97.9 F Temperature 97.5 F Temperature 97.3 F Temperature 97.4 F Temperature 97.4 F - Labs CBC & Chem 7: 11/19/18 06:41 11/19/18 03:45 Labs: Abnormal lab results 11/18/18 11/18/18 11/18/18 Range/Units 12:10 17:27 23:56 RBC (3.65-5.03) M/mm3 Hgb (11.8-15.2) gm/dl Hct (35.5-45.6) % RDW (13.2-15.2) % [place] % (Auto) (0.0-7.3) % [place] # (0.0-0.8) K/mm3 ABG pO2 (80.0-90.0) mm Hg ABG Base Excess (-2.0-3.0) mmol/L ABG Hemoglobin (14.0-18.0) gm/dl Sodium (137-145) mmol/L Chloride (98-107) mmol/L Carbon Dioxide (22-30) mmol/L BUN (9-20) mg/dL Creatinine (0.8-1.5) mg/dL Glucose (75-100) mg/dL POC Glucose 244 H 239 H 241 H (70-105) Calcium (8.4-10.2) mg/dL 11/19/18 11/19/18 11/19/18 Range/Units 03:45 04:27 06:37 RBC (3.65-5.03) M/mm3 Hgb (11.8-15.2) gm/dl Hct (35.5-45.6) % RDW (13.2-15.2) % [place] % (Auto) (0.0-7.3) % [place] # (0.0-0.8) K/mm3 ABG pO2 95.5 H (80.0-90.0) mm Hg ABG Base Excess -4.0 L (-2.0-3.0) mmol/L ABG Hemoglobin 5.9 L (14.0-18.0) gm/dl Sodium 147 H (137-145) mmol/L Chloride 119.2 H (98-107) mmol/L Carbon Dioxide 20 L (22-30) mmol/L BUN 28 H (9-20) mg/dL Creatinine 0.6 L (0.8-1.5) mg/dL Glucose 181 H (75-100) mg/dL POC Glucose 220 H (70-105) Calcium 7.6 L (8.4-10.2) mg/dL 11/19/18 Range/Units 06:41 RBC 3.28 L (3.65-5.03) M/mm3 Hgb 9.0 L (11.8-15.2) gm/dl Hct 28.2 L (35.5-45.6) % RDW 17.9 H (13.2-15.2) % [place] % (Auto) 11.0 H (0.0-7.3) % [place] # 1.1 H (0.0-0.8) K/mm3 ABG pO2 (80.0-90.0) mm Hg ABG Base Excess (-2.0-3.0) mmol/L ABG Hemoglobin (14.0-18.0) gm/dl Sodium (137-145) mmol/L Chloride (98-107) mmol/L Carbon Dioxide (22-30) mmol/L BUN (9-20) mg/dL Creatinine (0.8-1.5) mg/dL Glucose (75-100) mg/dL POC Glucose (70-105) Calcium (8.4-10.2) mg/dL
--- NOTE | 2018-11-19 11:06 | Progress Note ---
Assessment and Plan Assessment and plan: Acute on chronic resp failure Cont. tracheostomycare, secretion control and airway mangement Trach to ventilator Pulmonology following Severe Sepsis with septic shock due to VRE off vasopressors Blood cultures Enterococcus Faecium 4 of 4 bottles ID Physician following Continue antibiotics per ID recommendations, Zyvox 600 mg twice a day for total of 14 day Sacral decub ulcer. consulted surgery Diabetes mellitus type 2 Fingerstick q4h Anemia s/p 2 Units PRBC stool occult blood neg Hypertension by history. Monitor History of chronic hypoxic encephalopathy Hyperlipidemia Hypernatremia Hypokalemia Replete as needed Full code status Poor prognosis. Consider palliative care and hospice. I will attempt to arrange ACP discussion The high probability of a clinically significant, sudden or life threatening deterioration of the respiratory and skin system(s) required my full and direct attention, intervention and personal management. The aggregate critical care time was [31] minutes. This time is in addition to time spent performing reported procedures but includes the following: [x] Data Review and interpretation [x] Patient assessment and monitoring of vital signs [x] Documentation [x] Medication orders and management History Interval history: Patient is 77 yo resident at [facility] with chronic resp failure s/p trach, diabetes, BPH,hypertension, chronic hypoxic encephalopatyhy. [facility] because of difficulty breathing, respiratory distress. He was seen and evaluated in ED and duagnosed with acute on chronic respiratory failure failure and hypotension. He was put on ventilator since he already had a tracheostomy. He was diagnosed with sepsis with septic shock, started on iv Abx and previously required pressors which are off now Hospitalist Physical - Constitutional Vitals: Temp Pulse Resp BP Pulse Ox 97.3 F L 60 23 150/58 100 11/19/18 07:44 11/19/18 10:54 11/19/18 10:01 11/19/18 10:54 11/19/18 10:54 General appearance: Present: no acute distress, well-nourished, other (intubated on vent) - EENT Eyes: Present: PERRL, EOM intact ENT: hearing intact, clear oral mucosa, dentition normal - Neck Neck: Present: supple, normal ROM - Respiratory Respiratory effort: normal Respiratory: bilateral: CTA - Cardiovascular Rhythm: regular Heart Sounds: Present: S1 & S2. Absent: gallop, rub - Extremities Extremities: no ischemia, No edema, Full ROM - Abdominal General gastrointestinal: soft, non-tender, non-distended, normal bowel sounds - Integumentary Integumentary: Present: clear, warm, dry - Neurologic Neurologic: CNII-XII intact, moves all extremities Results - Labs CBC & Chem 7: 11/19/18 06:41 11/19/18 03:45 Labs: Laboratory Last Values WBC 9.6 K/mm3 (4.5-11.0) 11/19/18 06:41 RBC 3.28 M/mm3 (3.65-5.03) L 11/19/18 06:41 Hgb 9.0 gm/dl (11.8-15.2) L 11/19/18 06:41 Hct 28.2 % (35.5-45.6) L 11/19/18 06:41 MCV 86 fl (84-94) 11/19/18 06:41 MCH 28 pg (28-32) 11/19/18 06:41 MCHC 32 % (32-34) 11/19/18 06:41 RDW 17.9 % (13.2-15.2) H 11/19/18 06:41 Plt Count 211 K/mm3 (140-440) 11/19/18 06:41 Lymph % (Auto) 18.7 % (13.4-35.0) 11/19/18 06:41 [place] % (Auto) 11.0 % (0.0-7.3) H 11/19/18 06:41 Eos % (Auto) 2.8 % (0.0-4.3) 11/19/18 06:41 Baso % (Auto) 0.4 % (0.0-1.8) 11/19/18 06:41 Lymph # 1.8 K/mm3 (1.2-5.4) 11/19/18 06:41 [place] # 1.1 K/mm3 (0.0-0.8) H 11/19/18 06:41 Eos # 0.3 K/mm3 (0.0-0.4) 11/19/18 06:41 Baso # 0.0 K/mm3 (0.0-0.1) 11/19/18 06:41 Add Manual Diff Complete 11/13/18 14:00 Total Counted 100 11/13/18 14:00 Seg Neutrophils % 67.1 % (40.0-70.0) 11/19/18 06:41 Seg Neuts % (Manual) 87.0 % (40.0-70.0) H 11/13/18 14:00 0 % 11/13/18 14:00 5.0 % (13.4-35.0) L 11/13/18 14:00 Reactive Lymphs % (Man) 0 % 11/13/18 14:00 1.0 % (0.0-7.3) 11/13/18 14:00 7.0 % (0.0-4.3) H 11/13/18 14:00 0 % (0.0-1.8) 11/13/18 14:00 0 % 11/13/18 14:00 0 % 11/13/18 14:00 0 % 11/13/18 14:00 0 % 11/13/18 14:00 Nucleated RBC % Not Reportable 11/13/18 14:00 Seg Neutrophils # 6.4 K/mm3 (1.8-7.7) 11/19/18 06:41 Seg Neutrophils # Man 3.3 K/mm3 (1.8-7.7) 11/13/18 14:00 Band Neutrophils # 0.0 K/mm3 11/13/18 14:00 0.2 K/mm3 (1.2-5.4) L 11/13/18 14:00 Abs React Lymphs (Man) 0.0 K/mm3 11/13/18 14:00 0.0 K/mm3 (0.0-0.8) 11/13/18 14:00 0.3 K/mm3 (0.0-0.4) 11/13/18 14:00 0.0 K/mm3 (0.0-0.1) 11/13/18 14:00 0.0 K/mm3 11/13/18 14:00 0.0 K/mm3 11/13/18 14:00 0.0 K/mm3 11/13/18 14:00 Blast Cells # 0.0 K/mm3 11/13/18 14:00 WBC Morphology Not Reportable 11/13/18 14:00 Hypersegmented Neuts Not Reportable 11/13/18 14:00 Hyposegmented Neuts Not Reportable 11/13/18 14:00 Hypogranular Neuts Not Reportable 11/13/18 14:00 Not Reportable 11/13/18 14:00 Not Reportable 11/13/18 14:00 Not Reportable 11/13/18 14:00 Not Reportable 11/13/18 14:00 Not Reportable 11/13/18 14:00 Not Reportable 11/13/18 14:00 Consistent w auto 11/13/18 14:00 Not Reportable 11/13/18 14:00 Plt Clumps, EDTA Not Reportable 11/13/18 14:00 Not Reportable 11/13/18 14:00 Not Reportable 11/13/18 14:00 Not Reportable 11/13/18 14:00 Plt Morphology Comment Not Reportable 11/13/18 14:00 RBC Morphology Not Reportable 11/13/18 14:00 Dimorphic RBCs Not Reportable 11/13/18 14:00 Few 11/13/18 14:00 Not Reportable 11/13/18 14:00 Few 11/13/18 14:00 1+ 11/13/18 14:00 Not Reportable 11/13/18 14:00 Not Reportable 11/13/18 14:00 Few 11/13/18 14:00 Not Reportable 11/13/18 14:00 Not Reportable 11/13/18 14:00 Not Reportable 11/13/18 14:00 Not Reportable 11/13/18 14:00 Not Reportable 11/13/18 14:00 Not Reportable 11/13/18 14:00 Not Reportable 11/13/18 14:00 Not Reportable 11/13/18 14:00 Not Reportable 11/13/18 14:00 Not Reportable 11/13/18 14:00 Not Reportable 11/13/18 14:00 Not Reportable 11/13/18 14:00 Acanthocytes (Spur) Not Reportable 11/13/18 14:00 Rouleaux Not Reportable 11/13/18 14:00 Not Reportable 11/13/18 14:00 Not Reportable 11/13/18 14:00 Not Reportable 11/13/18 14:00 Not Reportable 11/13/18 14:00 Hem Pathologist Commnt No 11/13/18 14:00 POC ABG pH 7.463 (7.35-7.45) H 11/14/18 05:46 ABG pH 7.409 pH Units (7.350-7.450) 11/19/18 04:27 POC ABG pCO2 38.3 (35-45) 11/14/18 05:46 ABG pCO2 32.9 mm Hg 11/19/18 04:27 POC ABG pO2 136 (80-105) H 11/14/18 05:46 ABG pO2 95.5 mm Hg (80.0-90.0) H 11/19/18 04:27 POC ABG HCO3 27.4 (22-26 mml/L) 11/14/18 05:46 ABG HCO3 20.3 mmol/L (20.0-26.0) 11/19/18 04:27 POC ABG Total CO2 29 (23-27mmol/L) 11/14/18 05:46 POC ABG O2 Sat 99 11/14/18 05:46 ABG O2 Saturation 97.5 % (95.0-99.0) 11/19/18 04:27 ABG O2 Content 8.0 (0.0-44) 11/19/18 04:27 POC ABG Base Excess 4 ((-2) - (+3)mmol/L) 11/14/18 05:46 ABG Base Excess -4.0 mmol/L (-2.0-3.0) L 11/19/18 04:27 ABG Hemoglobin 5.9 gm/dl (14.0-18.0) L 11/19/18 04:27 ABG Carboxyhemoglobin 1.8 % (0.0-5.0) 11/19/18 04:27 ABG Methemoglobin 0.5 % (0.0-1.5) 11/19/18 04:27 95.3 % (95.0-99.0) 11/19/18 04:27 25 % 11/19/18 04:27 Sodium 147 mmol/L (137-145) H 11/19/18 03:45 Potassium 3.8 mmol/L (3.6-5.0) 11/19/18 03:45 Chloride 119.2 mmol/L (98-107) H 11/19/18 03:45 Carbon Dioxide 20 mmol/L (22-30) L 11/19/18 03:45 12 mmol/L 11/19/18 03:45 BUN 28 mg/dL (9-20) H 11/19/18 03:45 0.6 mg/dL (0.8-1.5) L 11/19/18 03:45 Estimated GFR > 60 ml/min 11/19/18 03:45 47 % 11/19/18 03:45 Glucose 181 mg/dL (75-100) H 11/19/18 03:45 POC Glucose 220 (70-105) H 11/19/18 06:37 Lactic Acid 1.60 mmol/L (0.7-2.0) 11/14/18 12:50 Calcium 7.6 mg/dL (8.4-10.2) L 11/19/18 03:45 Magnesium 2.10 mg/dL (1.7-2.3) 11/15/18 12:00 0.70 mg/dL (0.1-1.2) 11/13/18 14:00 AST 154 units/L (5-40) H 11/13/18 14:00 ALT 134 units/L (7-56) H 11/13/18 14:00 586 units/L (35-129) H 11/13/18 14:00 510 units/L (55-170) H 11/13/18 14:49 CK-MB (CK-2) 4.4 ng/mL (0.0-4.0) H 11/13/18 14:49 CK-MB (CK-2) Rel Index 0.8 (0-4) 11/13/18 14:49 0.348 ng/mL (0.00-0.029) H* 11/13/18 14:49 NT-Pro-B Natriuret Pep 3679 pg/mL (0-900) H 11/13/18 14:49 6.8 g/dL (6.3-8.2) 11/13/18 14:00 1.2 g/dL (3.9-5) L 11/13/18 14:00 0.2 % 11/13/18 14:00 Triglycerides 284 mg/dL (2-149) H 11/13/18 14:49 Cholesterol 56 mg/dL (50-199) 11/13/18 14:49 4 mg/dL (50-130) L 11/13/18 14:49 7 mg/dL (40-59) L 11/13/18 14:49 8.00 % 11/13/18 14:49 Yellow (Yellow) 11/13/18 14:44 Slightly-cloudy (Clear) 11/13/18 14:44 6.0 (5.0-7.0) 11/13/18 14:44 Ur Specific [place] 1.017 (1.003-1.030) 11/13/18 14:44 30 mg/dl mg/dL (Negative) 11/13/18 14:44 Neg mg/dL (Negative) 11/13/18 14:44 Neg mg/dL (Negative) 11/13/18 14:44 Neg (Negative) 11/13/18 14:44 Neg (Negative) 11/13/18 14:44 Neg (Negative) 11/13/18 14:44 4.0 mg/dL (<2.0) 11/13/18 14:44 Ur Leukocyte Esterase Mod (Negative) 11/13/18 14:44 36.0 /HPF (0.0-6.0) H 11/13/18 14:44 21.0 /HPF (0.0-6.0) 11/13/18 14:44 1+ /HPF (Negative) 11/13/18 14:44 Few /HPF 11/13/18 14:44 3+ /HPF 11/13/18 14:44 Hepatitis A IgM Ab Non-reactive (NonReactive) 11/14/18 02:00 Hep Bs Antigen Non-reactive (Negative) 11/14/18 02:00 Hep B Core IgM Ab Non-reactive (NonReactive) 11/14/18 02:00 Non-reactive (NonReactive) 11/14/18 02:00 HIV 1&2 Antibody Rapid Non react (Non React) 11/14/18 02:00 Non react (Non React) 11/14/18 02:00 Blood Type O POSITIVE 11/13/18 14:49 Antibody Screen Negative 11/13/18 14:49 Crossmatch See Detail 11/13/18 14:49 Active Medications - Current Medications Current Medications: Generic Name Dose Route Start Last Admin Trade Name Freq PRN Reason Stop Dose Admin Lipase/Protease/Amylase 1 each 11/14/18 14:20 Pancreaze 10,500 Unit FEEDTUBE PRN PRN For Clogged Feeding Tube Heparin Sodium (Porcine) 5,000 unit 11/14/18 03:30 11/19/18 09:36 Heparin SUB-Q 5,000 unit Q12HR LENCHO Administration Norepinephrine 8 mg/ Sodium 250 mls @ 3.75 mls/hr 11/14/18 09:00 11/18/18 07:38 Chloride IV 0 mcg/min TITR LENCHO 0 mls/hr Titration Protocol 2 MCG/MIN Vasopressin 20 unit/ Sodium 101 mls @ 9.09 mls/hr 11/14/18 09:00 11/15/18 04:05 Chloride IV 0 units/min TITR LENCHO 0 mls/hr Titration Protocol 0.03 UNITS/MIN Insulin Human Lispro 0 unit 11/14/18 06:00 11/19/18 06:53 Humalog SUB-Q 3 unit Q6HR LENCHO Administration Protocol Lansoprazole 30 mg 11/16/18 10:00 11/19/18 09:35 Prevacid Solutab FEEDTUBE 30 mg QDAY LENCHO Administration Linezolid 600 mg 11/19/18 10:00 11/19/18 09:42 Zyvox PO Not Given BID LENCHO Simple Syrup 15 ml 11/14/18 14:20 Simple Syrup FEEDTUBE PRN PRN Hypoglycemia Simple Syrup 30 ml 11/14/18 14:20 Simple Syrup FEEDTUBE PRN PRN Hypoglycemia Sodium Bicarbonate 325 mg 11/14/18 14:20 Sodium Bicarbonate FEEDTUBE PRN PRN For Clogged Feeding Tube Sodium Hypochlorite 1 applic 11/16/18 13:00 11/19/18 09:40 Dakin's Half Strength TP 1 applicatio BID LENCHO Administration Nutrition/Malnutrition Assess - Dietary Evaluation Nutrition/Malnutrition Findings: Nutrition Notes Start: 11/14/18 10:33 Freq: Status: Active Protocol: Document 11/18/18 10:37 LM (Rec: 11/18/18 10:59 LM [email or web address]) Nutrition Notes Initial or Follow up Reassessment Current Diagnosis Acute Kidney Injury,Decubitus( Pressure Ulcer),Diabetes, Sepsis,Hypertension,Heart Failure,Respiratory Failure, Stroke Other Pertinent Diagnosis sacral wound, UTI, Dysphagia, Chronic encephalopathy Labs/Tests Na 148 K 3.3 BUN 32 Creat 0.7 BG 154 Pertinent Medications Humalog Height 5 ft 9 in Weight 84 kg [place] Body Weight (kg) 72.72 BMI 27.3 Subjective/Other Information TF was restarted and Vital AF 1.2 running at 30 ml/hr. Pt is tolerating well. Percent of energy/protein needs met: 46%/53% Burn Absent Trauma Absent #1 Nutrition Diagnosis Inadequate oral intake Diagnosis Progress(for reassessment Continues documentation) Is patient on ventilator? Yes Is Patient Ambulatory and/or Out of Bed No REE-([facility]-confined to bed) 0570.621 Calculation Used for Recommendations [facility] Additional Notes Pro needs 1.2-2g/k-168g/ day Fluid needs 1ml/kcal Nutrition Intervention Change Diet Order: Continue TF Nutrition Support: Vital AF 1.2 at 60ml/hr with 100ml water flush q4h. Kcal 1,728 Protein (gm) 108 Carbohydrates (gm) 159 Fat (gm) 78 Fluid (mL) 1,168 Fiber (gm) 7 Goal #1 TF tolerance Goal #2 TF to meet at least 75% of energy and protein needs Anticipated Discharge Needs: Continue TF Follow-Up By: 11/20/18 Additional Comments F/U for TF tolerance and rate
--- NOTE | 2018-11-19 11:31 | Progress Note ---
Assessment and Plan Acute on chronic hypoxemic respiratory failure on MVS Severe sepsis with shock, off vasopressors VRE bacteremia UTI Large sacaral decubitus ulcer Acute on chronic metabolic encephalopathy Orophargyngeal dysphagia s/p PEG h/o CVAs Transaminitis probably secondary to hypotension Type 2 DM Hypernatremia Hypokalemia - Increase Apnea limit to 30 seconds and re-eattempt PSV trial - femoral CVL discontinued - begin Lantus 5 units daily re: hyperglycemia - repeat CXR +/- diuresis - begin scopolamine patch for secretion control - VAP bundle addressed - Trach care, airway clearance and secretion management - Lung protective strategies - Accuchecks with glycemic control, continue with insulin infusion per protocol - Douglass catheter for accurate intake and output monitoring in this critically ill patient with history of chronic douglass/urinary retention - Avoid nephrotoxins - VTE prophylaxis - Stress ulcer prophylaxis - Antibiotics per ID, de-escalate as indicated - Daily SAT and SBT - Mobility and off loading for sacral decubitus - Wound care - Free water flushes and hypotonic solutions for hypernatremia - Optimize nutrition to help promote wound healing - Supportive transfusions as indicated, to keep HgB>7g/dL - Vasopressor support as indicated for MAP<65, with blood pressure unresponsive to volume resuscitation - Continue to monitor hemodynamics closely - Keep Potassium at 4, to optimize respiratory muscle function - LTAC evaluation is appropriate ... re-evaluate in am & prn General surgery consult notes reviewed- poor candidate for wound debridement, poor chances of wound healing. Awaiting family decisions re goals of care CONDITION: CRITICAL PROGNOSIS; POOR CODE STATUS: FULL Discussed care plan with RT and RN. Discussed during ICU-IDT rounds Goals of care need to be re-addressed with family The high probability of a clinically significant, sudden or life threatening deterioration of the respiratory, cardiovascular,endocrine, system(s) required my full and direct attention, intervention and personal management. The aggregate critical care time was [35] minutes. This time is in addition to time spent performing reported procedures but includes the following: [x] Data Review and interpretation [x]Patient assessment and monitoring of vital signs [x] Documentation [x] Medication orders and management Subjective Date of service: 11/19/18 Principal diagnosis: Severe sepsis with shock; Ac and ch resp failur; Metabolic encephalopathy Interval history: Patient is seen today for: Severe sepsis with septic shock; Acute and chronic respiratory failure on MVS; Acute and chronic metabolic encephalopathy; Seen and examined at bedside; 24hour events reviewed; nursing and respiratory care staff consulted; resting peacefully in bed; failed SBT due to prolonged apnea's; AMS is persistent; No emesis or overt aspiration; secretions moderate to large; Afebrile Objective Vital Signs - 12hr 11/18/18 11/19/18 11/19/18 23:31 00:00 00:01 Temperature 97.5 F L Pulse Rate 58 L 59 L Respiratory 17 17 Rate Blood Pressure 133/50 135/62 O2 Sat by Pulse 100 99 100 Oximetry O2 Sat by Pulse Oximetry [ Assessment] 11/19/18 11/19/18 11/19/18 00:22 00:31 01:01 Temperature Pulse Rate 64 60 59 L Respiratory 14 15 Rate Blood Pressure 132/53 136/51 135/52 O2 Sat by Pulse 100 100 99 Oximetry O2 Sat by Pulse Oximetry [ Assessment] 11/19/18 11/19/18 11/19/18 01:31 02:01 02:31 Temperature Pulse Rate 60 59 L 58 L Respiratory 17 13 16 Rate Blood Pressure 131/52 136/49 132/52 O2 Sat by Pulse 100 100 100 Oximetry O2 Sat by Pulse Oximetry [ Assessment] 11/19/18 11/19/18 11/19/18 03:01 03:31 04:00 Temperature 97.9 F Pulse Rate 64 57 L Respiratory 0 L 13 Rate Blood Pressure 111/80 141/59 O2 Sat by Pulse 93 99 100 Oximetry O2 Sat by Pulse Oximetry [ Assessment] 11/19/18 11/19/18 11/19/18 04:01 04:31 05:01 Temperature Pulse Rate 58 L 58 L 57 L Respiratory 15 12 12 Rate Blood Pressure 151/61 143/61 148/66 O2 Sat by Pulse 99 100 98 Oximetry O2 Sat by Pulse Oximetry [ Assessment] 11/19/18 11/19/18 11/19/18 05:17 05:22 05:31 Temperature Pulse Rate 59 L 59 L Respiratory 13 Rate Blood Pressure 144/60 158/68 O2 Sat by Pulse 100 98 Oximetry O2 Sat by Pulse 100 Oximetry [ Assessment] 11/19/18 11/19/18 11/19/18 06:01 06:31 07:01 Temperature Pulse Rate 58 L 59 L 58 L Respiratory 12 20 12 Rate Blood Pressure 149/65 151/66 150/59 O2 Sat by Pulse 99 99 98 Oximetry O2 Sat by Pulse Oximetry [ Assessment] 11/19/18 11/19/18 11/19/18 07:18 07:31 07:44 Temperature 97.3 F L Pulse Rate 59 L 59 L Respiratory 12 Rate Blood Pressure 151/62 165/65 O2 Sat by Pulse 100 98 Oximetry O2 Sat by Pulse Oximetry [ Assessment] 11/19/18 11/19/18 11/19/18 08:00 08:01 08:31 Temperature Pulse Rate 58 L 59 L Respiratory 18 20 Rate Blood Pressure 152/65 143/68 O2 Sat by Pulse 100 99 99 Oximetry O2 Sat by Pulse Oximetry [ Assessment] 11/19/18 11/19/18 11/19/18 09:01 09:27 09:31 Temperature Pulse Rate 60 60 Respiratory 20 18 Rate Blood Pressure 150/61 147/58 147/58 O2 Sat by Pulse 99 100 99 Oximetry O2 Sat by Pulse Oximetry [ Assessment] 11/19/18 11/19/18 11/19/18 10:01 10:31 10:54 Temperature Pulse Rate 59 L 58 L 60 Respiratory 23 18 Rate Blood Pressure 142/59 152/65 150/58 O2 Sat by Pulse 99 99 100 Oximetry O2 Sat by Pulse Oximetry [ Assessment] 11/19/18 11:01 Temperature Pulse Rate 60 Respiratory 18 Rate Blood Pressure 155/66 O2 Sat by Pulse 99 Oximetry O2 Sat by Pulse Oximetry [ Assessment] Constitutional: no acute distress, other (elderly looking AAM on MVS; trach in place; no patient-ventilator dys-synchrony) Eyes: non-icteric ENT: oropharynx moist Neck: supple, no lymphadenopathy, no JVD, other (midline trach) Effort: mildly labored Ascultation: Bilateral: rales Percussion: Bilateral: not dull Cardiovascular: regular rate and rhythm, other (S1,S2) Gastrointestinal: normoactive bowel sounds, soft, non-distended, other (PEG in place, chronic douglass catheter) Integumentary: decubitus ulcer (see wound care notes) Extremities: no cyanosis, pink and warm, pulses normal, edema (2+) Neurologic: unable to assess (on vent), other (encephalopathic, unresponsive) Psychiatric: other (unable to assess) CBC and BMP: 11/20/18 03:03 11/20/18 03:03 ABG, PT/INR, D-dimer: ABG POC ABG pH 7.463 (7.35-7.45) H 11/14/18 05:46 ABG pH 7.409 pH Units (7.350-7.450) 11/19/18 04:27 POC ABG pCO2 38.3 (35-45) 11/14/18 05:46 ABG pCO2 32.9 mm Hg 11/19/18 04:27 POC ABG pO2 136 (80-105) H 11/14/18 05:46 ABG pO2 95.5 mm Hg (80.0-90.0) H 11/19/18 04:27 POC ABG HCO3 27.4 (22-26 mml/L) 11/14/18 05:46 POC ABG Total CO2 29 (23-27mmol/L) 11/14/18 05:46 POC ABG O2 Sat 99 11/14/18 05:46 ABG O2 Saturation 97.5 % (95.0-99.0) 11/19/18 04:27 Abnormal lab findings: Abnormal Labs 11/13/18 11/13/18 11/13/18 03:30 14:00 14:00 WBC 3.8 L RBC 2.80 L Hgb 7.4 L Hct 22.9 L MCV 82 L MCH 27 L MCHC RDW 19.0 H Lymph % (Auto) [place] % (Auto) [place] # Seg Neutrophils % Seg Neuts % (Manual) 87.0 H Lymphocytes % (Manual) 5.0 L Eosinophils % (Manual) 7.0 H Seg Neutrophils # Lymphocytes # (Manual) 0.2 L POC ABG pH POC ABG pO2 ABG pO2 ABG Base Excess ABG Hemoglobin Sodium 147 H Potassium Chloride Carbon Dioxide 33 H BUN 50 H Creatinine Glucose 193 H POC Glucose Lactic Acid 3.70 H* Calcium 8.1 L AST 154 H ALT 134 H Alkaline Phosphatase 586 H Total Creatine Kinase CK-MB (CK-2) Troponin T NT-Pro-B Natriuret Pep Albumin 1.2 L Triglycerides LDL Cholesterol Direct HDL Cholesterol Urine WBC (Auto) Crossmatch 11/13/18 11/13/18 11/13/18 14:00 14:44 14:49 WBC RBC Hgb Hct MCV MCH MCHC RDW Lymph % (Auto) [place] % (Auto) [place] # Seg Neutrophils % Seg Neuts % (Manual) Lymphocytes % (Manual) Eosinophils % (Manual) Seg Neutrophils # Lymphocytes # (Manual) POC ABG pH POC ABG pO2 ABG pO2 ABG Base Excess ABG Hemoglobin Sodium Potassium Chloride Carbon Dioxide BUN Creatinine Glucose POC Glucose Lactic Acid 2.60 H* Calcium AST ALT Alkaline Phosphatase Total Creatine Kinase 510 H CK-MB (CK-2) 4.4 H Troponin T 0.348 H* NT-Pro-B Natriuret Pep 3679 H Albumin Triglycerides 284 H LDL Cholesterol Direct 4 L HDL Cholesterol 7 L Urine WBC (Auto) 36.0 H Crossmatch 11/13/18 11/13/18 11/13/18 14:49 14:49 14:52 WBC RBC Hgb Hct MCV MCH MCHC RDW Lymph % (Auto) [place] % (Auto) [place] # Seg Neutrophils % Seg Neuts % (Manual) Lymphocytes % (Manual) Eosinophils % (Manual) Seg Neutrophils # Lymphocytes # (Manual) POC ABG pH POC ABG pO2 ABG pO2 ABG Base Excess ABG Hemoglobin Sodium Potassium Chloride Carbon Dioxide BUN Creatinine Glucose POC Glucose 205 H Lactic Acid 3.90 H* Calcium AST ALT Alkaline Phosphatase Total Creatine Kinase CK-MB (CK-2) Troponin T NT-Pro-B Natriuret Pep Albumin Triglycerides LDL Cholesterol Direct HDL Cholesterol Urine WBC (Auto) Crossmatch See Detail 11/13/18 11/13/18 11/13/18 16:58 17:13 19:46 WBC RBC Hgb Hct MCV MCH MCHC RDW Lymph % (Auto) [place] % (Auto) [place] # Seg Neutrophils % Seg Neuts % (Manual) Lymphocytes % (Manual) Eosinophils % (Manual) Seg Neutrophils # Lymphocytes # (Manual) POC ABG pH 7.573 H POC ABG pO2 ABG pO2 ABG Base Excess ABG Hemoglobin Sodium Potassium Chloride Carbon Dioxide BUN Creatinine Glucose POC Glucose Lactic Acid 3.90 H* 4.40 H* Calcium AST ALT Alkaline Phosphatase Total Creatine Kinase CK-MB (CK-2) Troponin T NT-Pro-B Natriuret Pep Albumin Triglycerides LDL Cholesterol Direct HDL Cholesterol Urine WBC (Auto) Crossmatch 11/13/18 11/14/18 11/14/18 21:34 04:50 05:23 WBC RBC Hgb Hct MCV MCH MCHC RDW Lymph % (Auto) [place] % (Auto) [place] # Seg Neutrophils % Seg Neuts % (Manual) Lymphocytes % (Manual) Eosinophils % (Manual) Seg Neutrophils # Lymphocytes # (Manual) POC ABG pH POC ABG pO2 ABG pO2 120.8 H ABG Base Excess ABG Hemoglobin 10.9 L Sodium Potassium Chloride Carbon Dioxide BUN Creatinine Glucose POC Glucose 263 H Lactic Acid 4.50 H* Calcium AST ALT Alkaline Phosphatase Total Creatine Kinase CK-MB (CK-2) Troponin T NT-Pro-B Natriuret Pep Albumin Triglycerides LDL Cholesterol Direct HDL Cholesterol Urine WBC (Auto) Crossmatch 11/14/18 11/14/18 11/14/18 05:46 08:02 12:42 WBC RBC Hgb Hct MCV MCH MCHC RDW Lymph % (Auto) [place] % (Auto) [place] # Seg Neutrophils % Seg Neuts % (Manual) Lymphocytes % (Manual) Eosinophils % (Manual) Seg Neutrophils # Lymphocytes # (Manual) POC ABG pH 7.463 H POC ABG pO2 136 H ABG pO2 ABG Base Excess ABG Hemoglobin Sodium Potassium Chloride Carbon Dioxide BUN Creatinine Glucose POC Glucose 213 H Lactic Acid 2.70 H* Calcium AST ALT Alkaline Phosphatase Total Creatine Kinase CK-MB (CK-2) Troponin T NT-Pro-B Natriuret Pep Albumin Triglycerides LDL Cholesterol Direct HDL Cholesterol Urine WBC (Auto) Crossmatch 11/14/18 11/14/18 11/14/18 14:17 14:17 15:50 WBC 13.1 H 13.1 H RBC 2.36 L 2.36 L Hgb 6.1 L 6.1 L Hct 19.6 L* 19.4 L* MCV 83 L 82 L MCH 26 L 26 L MCHC 31 L 31 L RDW 19.4 H 19.3 H Lymph % (Auto) [place] % (Auto) [place] # Seg Neutrophils % Seg Neuts % (Manual) Lymphocytes % (Manual) Eosinophils % (Manual) Seg Neutrophils # Lymphocytes # (Manual) POC ABG pH POC ABG pO2 ABG pO2 ABG Base Excess ABG Hemoglobin Sodium 148 H Potassium Chloride 110.3 H Carbon Dioxide BUN 56 H Creatinine Glucose 203 H POC Glucose Lactic Acid Calcium 7.6 L AST ALT Alkaline Phosphatase Total Creatine Kinase CK-MB (CK-2) Troponin T NT-Pro-B Natriuret Pep Albumin Triglycerides LDL Cholesterol Direct HDL Cholesterol Urine WBC (Auto) Crossmatch 08/11/14/18 11/15/18 18:19 23:52 05:10 WBC 16.2 H RBC 3.22 L Hgb 8.8 L Hct 26.8 L D MCV 83 L MCH 27 L MCHC RDW 16.8 H Lymph % (Auto) [place] % (Auto) [place] # Seg Neutrophils % Seg Neuts % (Manual) Lymphocytes % (Manual) Eosinophils % (Manual) Seg Neutrophils # Lymphocytes # (Manual) POC ABG pH POC ABG pO2 ABG pO2 ABG Base Excess ABG Hemoglobin Sodium Potassium Chloride Carbon Dioxide BUN Creatinine Glucose POC Glucose 213 H 242 H Lactic Acid Calcium AST ALT Alkaline Phosphatase Total Creatine Kinase CK-MB (CK-2) Troponin T NT-Pro-B Natriuret Pep Albumin Triglycerides LDL Cholesterol Direct HDL Cholesterol Urine WBC (Auto) Crossmatch 11/15/18 11/15/18 11/15/18 05:10 05:36 11:15 WBC RBC Hgb Hct MCV MCH MCHC RDW Lymph % (Auto) [place] % (Auto) [place] # Seg Neutrophils % Seg Neuts % (Manual) Lymphocytes % (Manual) Eosinophils % (Manual) Seg Neutrophils # Lymphocytes # (Manual) POC ABG pH POC ABG pO2 ABG pO2 ABG Base Excess ABG Hemoglobin Sodium 148 H Potassium 3.5 L Chloride 112.8 H Carbon Dioxide BUN 51 H Creatinine Glucose 154 H POC Glucose 143 H 139 H Lactic Acid Calcium 7.8 L AST ALT Alkaline Phosphatase Total Creatine Kinase CK-MB (CK-2) Troponin T NT-Pro-B Natriuret Pep Albumin Triglycerides LDL Cholesterol Direct HDL Cholesterol Urine WBC (Auto) Crossmatch 11/15/18 11/15/18 11/15/18 12:00 18:28 20:56 WBC RBC Hgb Hct MCV MCH MCHC RDW Lymph % (Auto) [place] % (Auto) [place] # Seg Neutrophils % Seg Neuts % (Manual) Lymphocytes % (Manual) Eosinophils % (Manual) Seg Neutrophils # Lymphocytes # (Manual) POC ABG pH POC ABG pO2 ABG pO2 ABG Base Excess ABG Hemoglobin Sodium 148 H Potassium 3.2 L Chloride 113.0 H Carbon Dioxide BUN 44 H Creatinine Glucose 144 H POC Glucose 159 H 150 H Lactic Acid Calcium 7.7 L AST ALT Alkaline Phosphatase Total Creatine Kinase CK-MB (CK-2) Troponin T NT-Pro-B Natriuret Pep Albumin Triglycerides LDL Cholesterol Direct HDL Cholesterol Urine WBC (Auto) Crossmatch 11/15/18 11/16/18 11/16/18 23:32 03:40 03:45 WBC 16.1 H RBC 3.30 L Hgb 8.9 L Hct 27.9 L MCV MCH 27 L MCHC RDW 17.5 H Lymph % (Auto) [place] % (Auto) [place] # Seg Neutrophils % Seg Neuts % (Manual) Lymphocytes % (Manual) Eosinophils % (Manual) Seg Neutrophils # Lymphocytes # (Manual) POC ABG pH POC ABG pO2 ABG pO2 147.0 H ABG Base Excess ABG Hemoglobin 12.0 L Sodium Potassium Chloride Carbon Dioxide BUN Creatinine Glucose POC Glucose 131 H Lactic Acid Calcium AST ALT Alkaline Phosphatase Total Creatine Kinase CK-MB (CK-2) Troponin T NT-Pro-B Natriuret Pep Albumin Triglycerides LDL Cholesterol Direct HDL Cholesterol Urine WBC (Auto) Crossmatch 11/16/18 11/16/18 11/16/18 03:45 05:15 15:14 WBC RBC Hgb Hct MCV MCH MCHC RDW Lymph % (Auto) [place] % (Auto) [place] # Seg Neutrophils % Seg Neuts % (Manual) Lymphocytes % (Manual) Eosinophils % (Manual) Seg Neutrophils # Lymphocytes # (Manual) POC ABG pH POC ABG pO2 ABG pO2 ABG Base Excess ABG Hemoglobin Sodium 149 H Potassium 3.5 L Chloride 116.2 H Carbon Dioxide 21 L BUN 41 H Creatinine Glucose 146 H POC Glucose 155 H 215 H Lactic Acid Calcium 7.7 L AST ALT Alkaline Phosphatase Total Creatine Kinase CK-MB (CK-2) Troponin T NT-Pro-B Natriuret Pep Albumin Triglycerides LDL Cholesterol Direct HDL Cholesterol Urine WBC (Auto) Crossmatch 11/16/18 11/16/18 11/17/18 18:20 23:49 04:49 WBC 12.1 H RBC 3.34 L Hgb 9.0 L Hct 28.1 L MCV MCH 27 L MCHC RDW 17.5 H Lymph % (Auto) [place] % (Auto) [place] # Seg Neutrophils % Seg Neuts % (Manual) Lymphocytes % (Manual) Eosinophils % (Manual) Seg Neutrophils # Lymphocytes # (Manual) POC ABG pH POC ABG pO2 ABG pO2 ABG Base Excess ABG Hemoglobin Sodium Potassium Chloride Carbon Dioxide BUN Creatinine Glucose POC Glucose 230 H 189 H Lactic Acid Calcium AST ALT Alkaline Phosphatase Total Creatine Kinase CK-MB (CK-2) Troponin T NT-Pro-B Natriuret Pep Albumin Triglycerides LDL Cholesterol Direct HDL Cholesterol Urine WBC (Auto) Crossmatch 11/17/18 11/17/18 11/17/18 04:49 05:45 14:16 WBC RBC Hgb Hct MCV MCH MCHC RDW Lymph % (Auto) [place] % (Auto) [place] # Seg Neutrophils % Seg Neuts % (Manual) Lymphocytes % (Manual) Eosinophils % (Manual) Seg Neutrophils # Lymphocytes # (Manual) POC ABG pH POC ABG pO2 ABG pO2 ABG Base Excess ABG Hemoglobin Sodium 150 H Potassium 3.2 L Chloride 118.9 H Carbon Dioxide 20 L BUN 38 H Creatinine 0.7 L Glucose 164 H POC Glucose 181 H 172 H Lactic Acid Calcium 7.7 L AST ALT Alkaline Phosphatase Total Creatine Kinase CK-MB (CK-2) Troponin T NT-Pro-B Natriuret Pep Albumin Triglycerides LDL Cholesterol Direct HDL Cholesterol Urine WBC (Auto) Crossmatch 11/17/18 11/17/18 11/18/18 23:36 Unknown 04:10 WBC RBC Hgb Hct MCV MCH MCHC RDW Lymph % (Auto) [place] % (Auto) [place] # Seg Neutrophils % Seg Neuts % (Manual) Lymphocytes % (Manual) Eosinophils % (Manual) Seg Neutrophils # Lymphocytes # (Manual) POC ABG pH POC ABG pO2 ABG pO2 105.9 H 101.8 H ABG Base Excess -2.3 L -3.2 L ABG Hemoglobin 11.5 L 10.2 L Sodium Potassium Chloride Carbon Dioxide BUN Creatinine Glucose POC Glucose 214 H Lactic Acid Calcium AST ALT Alkaline Phosphatase Total Creatine Kinase CK-MB (CK-2) Troponin T NT-Pro-B Natriuret Pep Albumin Triglycerides LDL Cholesterol Direct HDL Cholesterol Urine WBC (Auto) Crossmatch 11/18/18 11/18/18 11/18/18 04:37 04:37 05:36 WBC RBC 3.10 L Hgb 8.5 L Hct 26.8 L MCV MCH 27 L MCHC RDW 17.8 H Lymph % (Auto) 12.8 L [place] % (Auto) 8.5 H [place] # 0.9 H Seg Neutrophils % 75.8 H Seg Neuts % (Manual) Lymphocytes % (Manual) Eosinophils % (Manual) Seg Neutrophils # 8.0 H Lymphocytes # (Manual) POC ABG pH POC ABG pO2 ABG pO2 ABG Base Excess ABG Hemoglobin Sodium 148 H Potassium 3.3 L Chloride 118.3 H Carbon Dioxide 20 L BUN 32 H Creatinine 0.7 L Glucose 154 H POC Glucose 171 H Lactic Acid Calcium 7.4 L AST ALT Alkaline Phosphatase Total Creatine Kinase CK-MB (CK-2) Troponin T NT-Pro-B Natriuret Pep Albumin Triglycerides LDL Cholesterol Direct HDL Cholesterol Urine WBC (Auto) Crossmatch 11/18/18 11/18/18 11/18/18 12:10 17:27 23:56 WBC RBC Hgb Hct MCV MCH MCHC RDW Lymph % (Auto) [place] % (Auto) [place] # Seg Neutrophils % Seg Neuts % (Manual) Lymphocytes % (Manual) Eosinophils % (Manual) Seg Neutrophils # Lymphocytes # (Manual) POC ABG pH POC ABG pO2 ABG pO2 ABG Base Excess ABG Hemoglobin Sodium Potassium Chloride Carbon Dioxide BUN Creatinine Glucose POC Glucose 244 H 239 H 241 H Lactic Acid Calcium AST ALT Alkaline Phosphatase Total Creatine Kinase CK-MB (CK-2) Troponin T NT-Pro-B Natriuret Pep Albumin Triglycerides LDL Cholesterol Direct HDL Cholesterol Urine WBC (Auto) Crossmatch 11/19/18 11/19/18 11/19/18 03:45 04:27 06:37 WBC RBC Hgb Hct MCV MCH MCHC RDW Lymph % (Auto) [place] % (Auto) [place] # Seg Neutrophils % Seg Neuts % (Manual) Lymphocytes % (Manual) Eosinophils % (Manual) Seg Neutrophils # Lymphocytes # (Manual) POC ABG pH POC ABG pO2 ABG pO2 95.5 H ABG Base Excess -4.0 L ABG Hemoglobin 5.9 L Sodium 147 H Potassium Chloride 119.2 H Carbon Dioxide 20 L BUN 28 H Creatinine 0.6 L Glucose 181 H POC Glucose 220 H Lactic Acid Calcium 7.6 L AST ALT Alkaline Phosphatase Total Creatine Kinase CK-MB (CK-2) Troponin T NT-Pro-B Natriuret Pep Albumin Triglycerides LDL Cholesterol Direct HDL Cholesterol Urine WBC (Auto) Crossmatch 11/19/18 06:41 WBC RBC 3.28 L Hgb 9.0 L Hct 28.2 L MCV MCH MCHC RDW 17.9 H Lymph % (Auto) [place] % (Auto) 11.0 H [place] # 1.1 H Seg Neutrophils % Seg Neuts % (Manual) Lymphocytes % (Manual) Eosinophils % (Manual) Seg Neutrophils # Lymphocytes # (Manual) POC ABG pH POC ABG pO2 ABG pO2 ABG Base Excess ABG Hemoglobin Sodium Potassium Chloride Carbon Dioxide BUN Creatinine Glucose POC Glucose Lactic Acid Calcium AST ALT Alkaline Phosphatase Total Creatine Kinase CK-MB (CK-2) Troponin T NT-Pro-B Natriuret Pep Albumin Triglycerides LDL Cholesterol Direct HDL Cholesterol Urine WBC (Auto) Crossmatch Chest x-ray: pending Allied health notes reviewed: nursing
[2018-11-19] MEDS: LANTUS SUB-Q SCH (13:22)
--- NOTE | 2018-11-19 14:00 | XRay Report ---
CHEST 1 VIEW INDICATION: aspiration. COMPARISON: 11/16/2018 FINDINGS: Support devices: Tracheostomy tube in satisfactory position Heart: Within normal limits. Lungs/Pleura: New patchy left hilar and left basal lung opacities. Silhouetting of the left hemidiaph ragm. Mild central vascular congestion. Additional findings: None. IMPRESSION: New left lung opacities are consistent with aspiration pneumonia. Signer Name: Ronny Jackson MD Signed: 11/19/2018 1:55 PM Workstation Name: [id number]
[2018-11-19] MEDS: TRANSDERM-SCOP TD SCH (15:51)
[2018-11-19] MEDS ORDERED: PROVENTIL IH PRN (17:21)
[2018-11-20 04:04] LABS: Basophils % (Auto) 0.4 % (0.0-1.8); Eosinophils # (Auto) 0.3 K/mm3 (0.0-0.4); Eosinophils % (Auto) 3.6 % (0.0-4.3); Hematocrit 26.1 % (35.5-45.6); Hemoglobin 8.4 gm/dl (11.8-15.2); Lymphocytes # (Auto) 1.6 K/mm3 (1.2-5.4); Lymphocytes % (Auto) 18.8 % (13.4-35.0); Mean Corpuscular HGB Conc 32 % (32-34); Mean Corpuscular Volume 86 fl (84-94); Monocytes # (Auto) 0.9 K/mm3 (0.0-0.8); Platelet Count 225 K/mm3 (140-440); Red Blood Count 3.04 M/mm3 (3.65-5.03); Red Cell Distribution Width 18.1 % (13.2-15.2)
[2018-11-20 04:18] LABS: BUN/Creatinine Ratio 40; Blood Urea Nitrogen 24 mg/dL (9-20); Calcium 7.9 mg/dL (8.4-10.2); Hemolysis Index 10
[2018-11-20 05:33] LABS: ABG Base Excess -2.6 mmol/L (-2.0-3.0); ABG HCO3 22.2 mmol/L (20.0-26.0); ABG Methemoglobin 0.5 % (0.0-1.5); ABG Oxygen Saturation 97.2 % (95.0-99.0); ABG PCO2 38.1 mm Hg; ABG PH 7.384 pH Units (7.350-7.450); ABG PO2 91.3 mm Hg (80.0-90.0)
[2018-11-20] MEDS: HumaLOG SUB-Q SCH ×3 (06:55→19:05)
[2018-11-20] MEDS: ZYVOX PO SCH ×2 (09:50→20:59)
[2018-11-20] MEDS: PREVACID SOLUTAB FEEDTUBE SCH (09:50)
[2018-11-20] MEDS: LANTUS SUB-Q SCH (09:50)
[2018-11-20] MEDS: HEPARIN SUB-Q SCH ×2 (09:50→21:00)
[2018-11-20] MEDS: DAKIN'S HALF STRENGTH TP SCH ×2 (09:51→20:59)
--- NOTE | 2018-11-20 10:57 | Progress Note ---
Assessment and Plan Acute on chronic hypoxemic respiratory failure on MVS Severe sepsis with shock, off vasopressors VRE bacteremia UTI Large sacaral decubitus ulcer Acute on chronic metabolic encephalopathy Orophargyngeal dysphagia s/p PEG h/o CVAs Transaminitis probably secondary to hypotension Type 2 DM Hypernatremia Hypokalemia - hydralazine 10 mg IV q4h prn SBP >/= 170 mmHg - resume amlodipine 5 mg p.o. daily - increased Lantus to 10 units SQ daily - get ABG at 9pm; rest on AC overnight and begin T-piece trials in am if acceptable - begin Lantus 5 units daily re: hyperglycemia - repeat CXR prn at this time - continue scopolamine patch for secretion control - VAP bundle addressed - Trach care, airway clearance and secretion management - Lung protective strategies - Accuchecks with glycemic control, continue with insulin infusion per protocol - Douglass catheter for accurate intake and output monitoring in this critically ill patient with history of chronic douglass/urinary retention - Avoid nephrotoxins - VTE prophylaxis - Stress ulcer prophylaxis - Antibiotics per ID, de-escalate as indicated - Mobility and off loading for sacral decubitus - Wound care - Free water flushes and hypotonic solutions for hypernatremia - Optimize nutrition to help promote wound healing - Supportive transfusions as indicated, to keep HgB>7g/dL - Vasopressor support as indicated for MAP<65, with blood pressure unresponsive to volume resuscitation - Continue to monitor hemodynamics closely - Keep Potassium at 4, to optimize respiratory muscle function - LTAC evaluation is appropriate ... re-evaluate in am & prn General surgery consult notes reviewed- poor candidate for wound debridement, poor chances of wound healing. Awaiting family decisions re goals of care CONDITION: CRITICAL PROGNOSIS; POOR CODE STATUS: FULL Discussed care plan with RT and RN. Discussed during ICU-IDT rounds Goals of care need to be re-addressed with family The high probability of a clinically significant, sudden or life threatening deterioration of the respiratory, cardiovascular,endocrine, system(s) required my full and direct attention, intervention and personal management. The aggregate critical care time was [32] minutes. This time is in addition to time spent performing reported procedures but includes the following: [x] Data Review and interpretation [x]Patient assessment and monitoring of vital signs [x] Documentation [x] Medication orders and management Subjective Date of service: 11/20/18 Principal diagnosis: Severe sepsis with shock; Ac and ch resp failur; Metabolic encephalopathy Interval history: Patient is seen today for: Severe sepsis with septic shock; Acute and chronic respiratory failure on MVS; Acute and chronic metabolic encephalopathy; Seen and examined at bedside; 24hour events reviewed; nursing and respiratory care staff consulted; resting peacefully in bed; secretions much better; BP's running high; tolerating PSV better today; AMS is persistent; No emesis or overt aspiration Objective Vital Signs - 12hr 11/19/18 11/19/18 11/19/18 23:01 23:10 23:29 Temperature 97.5 F L Pulse Rate 60 60 Pulse Rate [ From Monitor] Respiratory 15 Rate Blood Pressure 156/62 O2 Sat by Pulse 100 100 Oximetry O2 Sat by Pulse Oximetry [ Assessment] 11/19/18 11/19/18 11/20/18 23:31 23:50 00:00 Temperature Pulse Rate 64 64 65 Pulse Rate [ From Monitor] Respiratory 20 Rate Blood Pressure 154/60 152/57 O2 Sat by Pulse 100 100 Oximetry O2 Sat by Pulse Oximetry [ Assessment] 11/20/18 11/20/18 11/20/18 00:01 00:09 00:31 Temperature Pulse Rate 61 62 61 Pulse Rate [ From Monitor] Respiratory 20 18 20 Rate Blood Pressure 147/56 147/56 152/56 O2 Sat by Pulse 100 100 99 Oximetry O2 Sat by Pulse Oximetry [ Assessment] 11/20/18 11/20/18 11/20/18 01:01 01:31 02:01 Temperature Pulse Rate 62 61 61 Pulse Rate [ From Monitor] Respiratory 19 20 19 Rate Blood Pressure 152/57 156/61 157/60 O2 Sat by Pulse 99 100 100 Oximetry O2 Sat by Pulse Oximetry [ Assessment] 11/20/18 11/20/18 11/20/18 02:31 02:44 02:50 Temperature 98.5 F Pulse Rate 64 64 Pulse Rate [ From Monitor] Respiratory 20 Rate Blood Pressure 160/63 O2 Sat by Pulse 99 100 Oximetry O2 Sat by Pulse Oximetry [ Assessment] 11/20/18 11/20/18 11/20/18 03:01 03:31 03:35 Temperature Pulse Rate 67 74 74 Pulse Rate [ From Monitor] Respiratory 18 18 Rate Blood Pressure 157/61 153/60 O2 Sat by Pulse 99 100 100 Oximetry O2 Sat by Pulse Oximetry [ Assessment] 11/20/18 11/20/18 11/20/18 04:01 04:31 05:00 Temperature Pulse Rate 63 62 Pulse Rate [ From Monitor] Respiratory 14 14 Rate Blood Pressure 166/66 166/66 O2 Sat by Pulse 98 98 Oximetry O2 Sat by Pulse 100 Oximetry [ Assessment] 11/20/18 11/20/18 11/20/18 05:01 05:19 05:31 Temperature Pulse Rate 63 63 62 Pulse Rate [ From Monitor] Respiratory 17 14 Rate Blood Pressure 174/70 174/70 O2 Sat by Pulse 99 100 98 Oximetry O2 Sat by Pulse Oximetry [ Assessment] 11/20/18 11/20/18 11/20/18 06:01 06:30 06:31 Temperature Pulse Rate 63 63 64 Pulse Rate [ From Monitor] Respiratory 15 18 Rate Blood Pressure 174/70 174/70 O2 Sat by Pulse 100 100 99 Oximetry O2 Sat by Pulse Oximetry [ Assessment] 11/20/18 11/20/18 11/20/18 07:01 07:28 07:31 Temperature Pulse Rate 63 67 63 Pulse Rate [ From Monitor] Respiratory 21 14 Rate Blood Pressure 174/70 174/70 174/70 O2 Sat by Pulse 99 100 Oximetry O2 Sat by Pulse Oximetry [ Assessment] 11/20/18 11/20/18 11/20/18 08:00 08:01 08:31 Temperature 97.4 F L Pulse Rate 70 64 64 Pulse Rate [ 64 From Monitor] Respiratory 22 21 Rate Blood Pressure 139/67 O2 Sat by Pulse 98 98 98 Oximetry O2 Sat by Pulse Oximetry [ Assessment] 11/20/18 11/20/18 11/20/18 09:01 09:30 10:00 Temperature Pulse Rate 64 63 73 Pulse Rate [ From Monitor] Respiratory 21 17 20 Rate Blood Pressure 151/64 165/67 159/66 O2 Sat by Pulse 100 99 100 Oximetry O2 Sat by Pulse Oximetry [ Assessment] 11/20/18 10:01 Temperature Pulse Rate 66 Pulse Rate [ From Monitor] Respiratory 18 Rate Blood Pressure 159/66 O2 Sat by Pulse 97 Oximetry O2 Sat by Pulse Oximetry [ Assessment] Constitutional: no acute distress, other (elderly looking AAM on MVS; trach in place; no patient-ventilator dys-synchrony) Eyes: non-icteric ENT: oropharynx moist Neck: supple, no lymphadenopathy, no JVD, other (midline trach) Effort: mildly labored Ascultation: Bilateral: diminished breath sounds, rales Percussion: Bilateral: not dull Cardiovascular: regular rate and rhythm, other (S1,S2) Gastrointestinal: normoactive bowel sounds, soft, non-distended, other (PEG in place, chronic douglass catheter) Integumentary: decubitus ulcer (see wound care notes) Extremities: no cyanosis, pink and warm, pulses normal, edema (2+) Neurologic: unable to assess (on vent), other (encephalopathic, unresponsive) Psychiatric: other (unable to assess) CBC and BMP: 11/22/18 06:10 11/22/18 06:10 ABG, PT/INR, D-dimer: ABG POC ABG pH 7.463 (7.35-7.45) H 11/14/18 05:46 ABG pH 7.384 pH Units (7.350-7.450) 11/20/18 04:20 POC ABG pCO2 38.3 (35-45) 11/14/18 05:46 ABG pCO2 38.1 mm Hg 11/20/18 04:20 POC ABG pO2 136 (80-105) H 11/14/18 05:46 ABG pO2 91.3 mm Hg (80.0-90.0) H 11/20/18 04:20 POC ABG HCO3 27.4 (22-26 mml/L) 11/14/18 05:46 POC ABG Total CO2 29 (23-27mmol/L) 11/14/18 05:46 POC ABG O2 Sat 99 11/14/18 05:46 ABG O2 Saturation 97.2 % (95.0-99.0) 11/20/18 04:20 Abnormal lab findings: Abnormal Labs 11/13/18 11/13/18 11/13/18 03:30 14:00 14:00 WBC 3.8 L RBC 2.80 L Hgb 7.4 L Hct 22.9 L MCV 82 L MCH 27 L MCHC RDW 19.0 H Lymph % (Auto) [place] % (Auto) [place] # Seg Neutrophils % Seg Neuts % (Manual) 87.0 H Lymphocytes % (Manual) 5.0 L Eosinophils % (Manual) 7.0 H Seg Neutrophils # Lymphocytes # (Manual) 0.2 L POC ABG pH POC ABG pO2 ABG pO2 ABG Base Excess ABG Hemoglobin Sodium 147 H Potassium Chloride Carbon Dioxide 33 H BUN 50 H Creatinine Glucose 193 H POC Glucose Lactic Acid 3.70 H* Calcium 8.1 L AST 154 H ALT 134 H Alkaline Phosphatase 586 H Total Creatine Kinase CK-MB (CK-2) Troponin T NT-Pro-B Natriuret Pep Albumin 1.2 L Triglycerides LDL Cholesterol Direct HDL Cholesterol Urine WBC (Auto) Crossmatch 11/13/18 11/13/18 11/13/18 14:00 14:44 14:49 WBC RBC Hgb Hct MCV MCH MCHC RDW Lymph % (Auto) [place] % (Auto) [place] # Seg Neutrophils % Seg Neuts % (Manual) Lymphocytes % (Manual) Eosinophils % (Manual) Seg Neutrophils # Lymphocytes # (Manual) POC ABG pH POC ABG pO2 ABG pO2 ABG Base Excess ABG Hemoglobin Sodium Potassium Chloride Carbon Dioxide BUN Creatinine Glucose POC Glucose Lactic Acid 2.60 H* Calcium AST ALT Alkaline Phosphatase Total Creatine Kinase 510 H CK-MB (CK-2) 4.4 H Troponin T 0.348 H* NT-Pro-B Natriuret Pep 3679 H Albumin Triglycerides 284 H LDL Cholesterol Direct 4 L HDL Cholesterol 7 L Urine WBC (Auto) 36.0 H Crossmatch 11/13/18 11/13/18 11/13/18 14:49 14:49 14:52 WBC RBC Hgb Hct MCV MCH MCHC RDW Lymph % (Auto) [place] % (Auto) [place] # Seg Neutrophils % Seg Neuts % (Manual) Lymphocytes % (Manual) Eosinophils % (Manual) Seg Neutrophils # Lymphocytes # (Manual) POC ABG pH POC ABG pO2 ABG pO2 ABG Base Excess ABG Hemoglobin Sodium Potassium Chloride Carbon Dioxide BUN Creatinine Glucose POC Glucose 205 H Lactic Acid 3.90 H* Calcium AST ALT Alkaline Phosphatase Total Creatine Kinase CK-MB (CK-2) Troponin T NT-Pro-B Natriuret Pep Albumin Triglycerides LDL Cholesterol Direct HDL Cholesterol Urine WBC (Auto) Crossmatch See Detail 11/13/18 11/13/18 11/13/18 16:58 17:13 19:46 WBC RBC Hgb Hct MCV MCH MCHC RDW Lymph % (Auto) [place] % (Auto) [place] # Seg Neutrophils % Seg Neuts % (Manual) Lymphocytes % (Manual) Eosinophils % (Manual) Seg Neutrophils # Lymphocytes # (Manual) POC ABG pH 7.573 H POC ABG pO2 ABG pO2 ABG Base Excess ABG Hemoglobin Sodium Potassium Chloride Carbon Dioxide BUN Creatinine Glucose POC Glucose Lactic Acid 3.90 H* 4.40 H* Calcium AST ALT Alkaline Phosphatase Total Creatine Kinase CK-MB (CK-2) Troponin T NT-Pro-B Natriuret Pep Albumin Triglycerides LDL Cholesterol Direct HDL Cholesterol Urine WBC (Auto) Crossmatch 11/13/18 11/14/18 11/14/18 21:34 04:50 05:23 WBC RBC Hgb Hct MCV MCH MCHC RDW Lymph % (Auto) [place] % (Auto) [place] # Seg Neutrophils % Seg Neuts % (Manual) Lymphocytes % (Manual) Eosinophils % (Manual) Seg Neutrophils # Lymphocytes # (Manual) POC ABG pH POC ABG pO2 ABG pO2 120.8 H ABG Base Excess ABG Hemoglobin 10.9 L Sodium Potassium Chloride Carbon Dioxide BUN Creatinine Glucose POC Glucose 263 H Lactic Acid 4.50 H* Calcium AST ALT Alkaline Phosphatase Total Creatine Kinase CK-MB (CK-2) Troponin T NT-Pro-B Natriuret Pep Albumin Triglycerides LDL Cholesterol Direct HDL Cholesterol Urine WBC (Auto) Crossmatch 11/14/18 11/14/18 11/14/18 05:46 08:02 12:42 WBC RBC Hgb Hct MCV MCH MCHC RDW Lymph % (Auto) [place] % (Auto) [place] # Seg Neutrophils % Seg Neuts % (Manual) Lymphocytes % (Manual) Eosinophils % (Manual) Seg Neutrophils # Lymphocytes # (Manual) POC ABG pH 7.463 H POC ABG pO2 136 H ABG pO2 ABG Base Excess ABG Hemoglobin Sodium Potassium Chloride Carbon Dioxide BUN Creatinine Glucose POC Glucose 213 H Lactic Acid 2.70 H* Calcium AST ALT Alkaline Phosphatase Total Creatine Kinase CK-MB (CK-2) Troponin T NT-Pro-B Natriuret Pep Albumin Triglycerides LDL Cholesterol Direct HDL Cholesterol Urine WBC (Auto) Crossmatch 11/14/18 11/14/18 11/14/18 14:17 14:17 15:50 WBC 13.1 H 13.1 H RBC 2.36 L 2.36 L Hgb 6.1 L 6.1 L Hct 19.6 L* 19.4 L* MCV 83 L 82 L MCH 26 L 26 L MCHC 31 L 31 L RDW 19.4 H 19.3 H Lymph % (Auto) [place] % (Auto) [place] # Seg Neutrophils % Seg Neuts % (Manual) Lymphocytes % (Manual) Eosinophils % (Manual) Seg Neutrophils # Lymphocytes # (Manual) POC ABG pH POC ABG pO2 ABG pO2 ABG Base Excess ABG Hemoglobin Sodium 148 H Potassium Chloride 110.3 H Carbon Dioxide BUN 56 H Creatinine Glucose 203 H POC Glucose Lactic Acid Calcium 7.6 L AST ALT Alkaline Phosphatase Total Creatine Kinase CK-MB (CK-2) Troponin T NT-Pro-B Natriuret Pep Albumin Triglycerides LDL Cholesterol Direct HDL Cholesterol Urine WBC (Auto) Crossmatch 11/14/18 11/14/18 11/15/18 18:19 23:52 05:10 WBC 16.2 H RBC 3.22 L Hgb 8.8 L Hct 26.8 L D MCV 83 L MCH 27 L MCHC RDW 16.8 H Lymph % (Auto) [place] % (Auto) [place] # Seg Neutrophils % Seg Neuts % (Manual) Lymphocytes % (Manual) Eosinophils % (Manual) Seg Neutrophils # Lymphocytes # (Manual) POC ABG pH POC ABG pO2 ABG pO2 ABG Base Excess ABG Hemoglobin Sodium Potassium Chloride Carbon Dioxide BUN Creatinine Glucose POC Glucose 213 H 242 H Lactic Acid Calcium AST ALT Alkaline Phosphatase Total Creatine Kinase CK-MB (CK-2) Troponin T NT-Pro-B Natriuret Pep Albumin Triglycerides LDL Cholesterol Direct HDL Cholesterol Urine WBC (Auto) Crossmatch 11/15/18 11/15/18 11/15/18 05:10 05:36 11:15 WBC RBC Hgb Hct MCV MCH MCHC RDW Lymph % (Auto) [place] % (Auto) [place] # Seg Neutrophils % Seg Neuts % (Manual) Lymphocytes % (Manual) Eosinophils % (Manual) Seg Neutrophils # Lymphocytes # (Manual) POC ABG pH POC ABG pO2 ABG pO2 ABG Base Excess ABG Hemoglobin Sodium 148 H Potassium 3.5 L Chloride 112.8 H Carbon Dioxide BUN 51 H Creatinine Glucose 154 H POC Glucose 143 H 139 H Lactic Acid Calcium 7.8 L AST ALT Alkaline Phosphatase Total Creatine Kinase CK-MB (CK-2) Troponin T NT-Pro-B Natriuret Pep Albumin Triglycerides LDL Cholesterol Direct HDL Cholesterol Urine WBC (Auto) Crossmatch 11/15/18 11/15/18 11/15/18 12:00 18:28 20:56 WBC RBC Hgb Hct MCV MCH MCHC RDW Lymph % (Auto) [place] % (Auto) [place] # Seg Neutrophils % Seg Neuts % (Manual) Lymphocytes % (Manual) Eosinophils % (Manual) Seg Neutrophils # Lymphocytes # (Manual) POC ABG pH POC ABG pO2 ABG pO2 ABG Base Excess ABG Hemoglobin Sodium 148 H Potassium 3.2 L Chloride 113.0 H Carbon Dioxide BUN 44 H Creatinine Glucose 144 H POC Glucose 159 H 150 H Lactic Acid Calcium 7.7 L AST ALT Alkaline Phosphatase Total Creatine Kinase CK-MB (CK-2) Troponin T NT-Pro-B Natriuret Pep Albumin Triglycerides LDL Cholesterol Direct HDL Cholesterol Urine WBC (Auto) Crossmatch 11/15/18 11/16/18 11/16/18 23:32 03:40 03:45 WBC 16.1 H RBC 3.30 L Hgb 8.9 L Hct 27.9 L MCV MCH 27 L MCHC RDW 17.5 H Lymph % (Auto) [place] % (Auto) [place] # Seg Neutrophils % Seg Neuts % (Manual) Lymphocytes % (Manual) Eosinophils % (Manual) Seg Neutrophils # Lymphocytes # (Manual) POC ABG pH POC ABG pO2 ABG pO2 147.0 H ABG Base Excess ABG Hemoglobin 12.0 L Sodium Potassium Chloride Carbon Dioxide BUN Creatinine Glucose POC Glucose 131 H Lactic Acid Calcium AST ALT Alkaline Phosphatase Total Creatine Kinase CK-MB (CK-2) Troponin T NT-Pro-B Natriuret Pep Albumin Triglycerides LDL Cholesterol Direct HDL Cholesterol Urine WBC (Auto) Crossmatch 11/16/18 11/16/18 11/16/18 03:45 05:15 15:14 WBC RBC Hgb Hct MCV MCH MCHC RDW Lymph % (Auto) [place] % (Auto) [place] # Seg Neutrophils % Seg Neuts % (Manual) Lymphocytes % (Manual) Eosinophils % (Manual) Seg Neutrophils # Lymphocytes # (Manual) POC ABG pH POC ABG pO2 ABG pO2 ABG Base Excess ABG Hemoglobin Sodium 149 H Potassium 3.5 L Chloride 116.2 H Carbon Dioxide 21 L BUN 41 H Creatinine Glucose 146 H POC Glucose 155 H 215 H Lactic Acid Calcium 7.7 L AST ALT Alkaline Phosphatase Total Creatine Kinase CK-MB (CK-2) Troponin T NT-Pro-B Natriuret Pep Albumin Triglycerides LDL Cholesterol Direct HDL Cholesterol Urine WBC (Auto) Crossmatch 11/16/18 11/16/18 11/17/18 18:20 23:49 04:49 WBC 12.1 H RBC 3.34 L Hgb 9.0 L Hct 28.1 L MCV MCH 27 L MCHC RDW 17.5 H Lymph % (Auto) [place] % (Auto) [place] # Seg Neutrophils % Seg Neuts % (Manual) Lymphocytes % (Manual) Eosinophils % (Manual) Seg Neutrophils # Lymphocytes # (Manual) POC ABG pH POC ABG pO2 ABG pO2 ABG Base Excess ABG Hemoglobin Sodium Potassium Chloride Carbon Dioxide BUN Creatinine Glucose POC Glucose 230 H 189 H Lactic Acid Calcium AST ALT Alkaline Phosphatase Total Creatine Kinase CK-MB (CK-2) Troponin T NT-Pro-B Natriuret Pep Albumin Triglycerides LDL Cholesterol Direct HDL Cholesterol Urine WBC (Auto) Crossmatch 11/17/18 11/17/18 11/17/18 04:49 05:45 14:16 WBC RBC Hgb Hct MCV MCH MCHC RDW Lymph % (Auto) [place] % (Auto) [place] # Seg Neutrophils % Seg Neuts % (Manual) Lymphocytes % (Manual) Eosinophils % (Manual) Seg Neutrophils # Lymphocytes # (Manual) POC ABG pH POC ABG pO2 ABG pO2 ABG Base Excess ABG Hemoglobin Sodium 150 H Potassium 3.2 L Chloride 118.9 H Carbon Dioxide 20 L BUN 38 H Creatinine 0.7 L Glucose 164 H POC Glucose 181 H 172 H Lactic Acid Calcium 7.7 L AST ALT Alkaline Phosphatase Total Creatine Kinase CK-MB (CK-2) Troponin T NT-Pro-B Natriuret Pep Albumin Triglycerides LDL Cholesterol Direct HDL Cholesterol Urine WBC (Auto) Crossmatch 11/17/18 11/17/18 11/18/18 23:36 Unknown 04:10 WBC RBC Hgb Hct MCV MCH MCHC RDW Lymph % (Auto) [place] % (Auto) [place] # Seg Neutrophils % Seg Neuts % (Manual) Lymphocytes % (Manual) Eosinophils % (Manual) Seg Neutrophils # Lymphocytes # (Manual) POC ABG pH POC ABG pO2 ABG pO2 105.9 H 101.8 H ABG Base Excess -2.3 L -3.2 L ABG Hemoglobin 11.5 L 10.2 L Sodium Potassium Chloride Carbon Dioxide BUN Creatinine Glucose POC Glucose 214 H Lactic Acid Calcium AST ALT Alkaline Phosphatase Total Creatine Kinase CK-MB (CK-2) Troponin T NT-Pro-B Natriuret Pep Albumin Triglycerides LDL Cholesterol Direct HDL Cholesterol Urine WBC (Auto) Crossmatch 11/18/18 11/18/18 11/18/18 04:37 04:37 05:36 WBC RBC 3.10 L Hgb 8.5 L Hct 26.8 L MCV MCH 27 L MCHC RDW 17.8 H Lymph % (Auto) 12.8 L [place] % (Auto) 8.5 H [place] # 0.9 H Seg Neutrophils % 75.8 H Seg Neuts % (Manual) Lymphocytes % (Manual) Eosinophils % (Manual) Seg Neutrophils # 8.0 H Lymphocytes # (Manual) POC ABG pH POC ABG pO2 ABG pO2 ABG Base Excess ABG Hemoglobin Sodium 148 H Potassium 3.3 L Chloride 118.3 H Carbon Dioxide 20 L BUN 32 H Creatinine 0.7 L Glucose 154 H POC Glucose 171 H Lactic Acid Calcium 7.4 L AST ALT Alkaline Phosphatase Total Creatine Kinase CK-MB (CK-2) Troponin T NT-Pro-B Natriuret Pep Albumin Triglycerides LDL Cholesterol Direct HDL Cholesterol Urine WBC (Auto) Crossmatch 11/18/18 11/18/18 11/18/18 12:10 17:27 23:56 WBC RBC Hgb Hct MCV MCH MCHC RDW Lymph % (Auto) [place] % (Auto) [place] # Seg Neutrophils % Seg Neuts % (Manual) Lymphocytes % (Manual) Eosinophils % (Manual) Seg Neutrophils # Lymphocytes # (Manual) POC ABG pH POC ABG pO2 ABG pO2 ABG Base Excess ABG Hemoglobin Sodium Potassium Chloride Carbon Dioxide BUN Creatinine Glucose POC Glucose 244 H 239 H 241 H Lactic Acid Calcium AST ALT Alkaline Phosphatase Total Creatine Kinase CK-MB (CK-2) Troponin T NT-Pro-B Natriuret Pep Albumin Triglycerides LDL Cholesterol Direct HDL Cholesterol Urine WBC (Auto) Crossmatch 11/19/18 11/19/18 11/19/18 03:45 04:27 06:37 WBC RBC Hgb Hct MCV MCH MCHC RDW Lymph % (Auto) [place] % (Auto) [place] # Seg Neutrophils % Seg Neuts % (Manual) Lymphocytes % (Manual) Eosinophils % (Manual) Seg Neutrophils # Lymphocytes # (Manual) POC ABG pH POC ABG pO2 ABG pO2 95.5 H ABG Base Excess -4.0 L ABG Hemoglobin 5.9 L Sodium 147 H Potassium Chloride 119.2 H Carbon Dioxide 20 L BUN 28 H Creatinine 0.6 L Glucose 181 H POC Glucose 220 H Lactic Acid Calcium 7.6 L AST ALT Alkaline Phosphatase Total Creatine Kinase CK-MB (CK-2) Troponin T NT-Pro-B Natriuret Pep Albumin Triglycerides LDL Cholesterol Direct HDL Cholesterol Urine WBC (Auto) Crossmatch 11/19/18 11/19/18 11/19/18 06:41 11:27 17:31 WBC RBC 3.28 L Hgb 9.0 L Hct 28.2 L MCV MCH MCHC RDW 17.9 H Lymph % (Auto) [place] % (Auto) 11.0 H [place] # 1.1 H Seg Neutrophils % Seg Neuts % (Manual) Lymphocytes % (Manual) Eosinophils % (Manual) Seg Neutrophils # Lymphocytes # (Manual) POC ABG pH POC ABG pO2 ABG pO2 ABG Base Excess ABG Hemoglobin Sodium Potassium Chloride Carbon Dioxide BUN Creatinine Glucose POC Glucose 280 H 300 H Lactic Acid Calcium AST ALT Alkaline Phosphatase Total Creatine Kinase CK-MB (CK-2) Troponin T NT-Pro-B Natriuret Pep Albumin Triglycerides LDL Cholesterol Direct HDL Cholesterol Urine WBC (Auto) Crossmatch 11/19/18 11/20/18 11/20/18 23:30 03:03 03:03 WBC RBC 3.04 L Hgb 8.4 L Hct 26.1 L MCV MCH MCHC RDW 18.1 H Lymph % (Auto) [place] % (Auto) 11.0 H [place] # 0.9 H Seg Neutrophils % Seg Neuts % (Manual) Lymphocytes % (Manual) Eosinophils % (Manual) Seg Neutrophils # Lymphocytes # (Manual) POC ABG pH POC ABG pO2 ABG pO2 ABG Base Excess ABG Hemoglobin Sodium 148 H Potassium Chloride 117.4 H Carbon Dioxide BUN 24 H Creatinine 0.6 L Glucose 238 H POC Glucose 251 H Lactic Acid Calcium 7.9 L AST ALT Alkaline Phosphatase Total Creatine Kinase CK-MB (CK-2) Troponin T NT-Pro-B Natriuret Pep Albumin Triglycerides LDL Cholesterol Direct HDL Cholesterol Urine WBC (Auto) Crossmatch 11/20/18 11/20/18 04:20 05:15 WBC RBC Hgb Hct MCV MCH MCHC RDW Lymph % (Auto) [place] % (Auto) [place] # Seg Neutrophils % Seg Neuts % (Manual) Lymphocytes % (Manual) Eosinophils % (Manual) Seg Neutrophils # Lymphocytes # (Manual) POC ABG pH POC ABG pO2 ABG pO2 91.3 H ABG Base Excess -2.6 L ABG Hemoglobin 8.3 L Sodium Potassium Chloride Carbon Dioxide BUN Creatinine Glucose POC Glucose 213 H Lactic Acid Calcium AST ALT Alkaline Phosphatase Total Creatine Kinase CK-MB (CK-2) Troponin T NT-Pro-B Natriuret Pep Albumin Triglycerides LDL Cholesterol Direct HDL Cholesterol Urine WBC (Auto) Crossmatch Chest x-ray: image reviewed (new LLL infiltrate) Allied health notes reviewed: nursing
--- NOTE | 2018-11-20 11:29 | Progress Note ---
Assessment and Plan Cultures: 11/13 BCx - VRE 11/13 UCx - >100k mixed kole 11/13 Sputum Cx - not run due to contamination 11/16/2018 Blood culture: no growth thus far A/P: 77 yo M PMHx CVA, seizures, HTN, DM2 admitted for worsenign respiratory status. 1. Septic shock secondary to VRE bacteremia: Off pressors. Source: urine v/s large sacral decubitus ulcer. TTE poor windows, if repeat blood cultures remain negative, would not recommend GLORIA since overall prognosis remains extremely poor and he is not going to be a candidate for any valve surgeries. Repeat blood cultures are negative. 2. Acute on chronic respiratory failure - CXR with congestion, no focal infiltrate to suggest pneumonia. VRE / Enterococcus rarely causes pneumonia. 3. UTI - Urine cultures with mixed kole. >100 CFU, probably cause of Enterococcal bacteremia. 4. Large sacral decubitus ulcer, infected, with eschar: could be the source of the VRE bacteremia. Appreciate General Surgery recommendations. Agree that prognosis is extremely poor and no plans for surgical debridement with no hope for cure. 5. DM-2 6. Hx of CVA: s/p trach and PEG. 7. Elevated LFTs: probably from sepsis. RUQ US showed collapsed GB, no gallstones, trace ascites and hepatic steatosis. Recs: - continue PO Linezolid 600 mg BID. Today is Day 5 of 14 day therapy - monitor platelets while on linezolid - continue wound care and contact isolation - overall prognosis remains extremely poor. Recommended palliative care / hospice. Tiara Corcoran MD, FACP [facility] M: [phone] O: [phone] F: [phone] Subjective Date of service: 11/20/18 Principal diagnosis: Severe sepsis with shock; Ac and ch resp failur; Metabolic encephalopathy Interval history: No fever. Remains on the vent via trach. Non verbal. at bedside. Objective - Exam Narrative Exam: Physical Exam: Constitutional: unresponsive, on vent. Head, Ears, Nose: Normocephalic, atraumatic. External ears, nose normal Eyes: Conjunctivae/corneas clear. No icterus. No ptosis. Neck: trach Oral: unable to examine Cardiovascular: S1, S2 normal. Respiratory: Good air entry, clear to auscultation bilaterally GI: Soft, PEG +; bowel sounds +, rectal tube + Musculoskeletal: 2+ pedal edema +, no cyanosis. Skin: Large sacral decubitus with eschar with dressing Hem/Lymphatic: No palpable cervical or supraclavicular nodes. No lymphangitis Psych: no agitation Neurological: unresponsive, on vent. - Constitutional Vitals: Vital Signs Temp Pulse Resp BP Pulse Ox 97.4 F L 66 18 159/66 97 11/20/18 08:00 11/20/18 10:01 11/20/18 10:01 11/20/18 10:01 11/20/18 10:01 Temperature -Last 24 Hours Temperature 97.4 F Temperature 98.5 F Temperature 97.5 F Temperature 97.4 F Temperature 97.5 F Temperature 94.9 F - Labs CBC & Chem 7: 11/20/18 03:03 11/20/18 03:03 Labs: Abnormal lab results 11/19/18 11/19/18 11/19/18 Range/Units 11:27 17:31 23:30 RBC (3.65-5.03) M/mm3 Hgb (11.8-15.2) gm/dl Hct (35.5-45.6) % RDW (13.2-15.2) % Schleicher % (Auto) (0.0-7.3) % Schleicher # (0.0-0.8) K/mm3 ABG pO2 (80.0-90.0) mm Hg ABG Base Excess (-2.0-3.0) mmol/L ABG Hemoglobin (14.0-18.0) gm/dl Sodium (137-145) mmol/L Chloride (98-107) mmol/L BUN (9-20) mg/dL Creatinine (0.8-1.5) mg/dL Glucose (75-100) mg/dL POC Glucose 280 H 300 H 251 H (70-105) Calcium (8.4-10.2) mg/dL 11/20/18 11/20/18 11/20/18 Range/Units 03:03 03:03 04:20 RBC 3.04 L (3.65-5.03) M/mm3 Hgb 8.4 L (11.8-15.2) gm/dl Hct 26.1 L (35.5-45.6) % RDW 18.1 H (13.2-15.2) % Schleicher % (Auto) 11.0 H (0.0-7.3) % Schleicher # 0.9 H (0.0-0.8) K/mm3 ABG pO2 91.3 H (80.0-90.0) mm Hg ABG Base Excess -2.6 L (-2.0-3.0) mmol/L ABG Hemoglobin 8.3 L (14.0-18.0) gm/dl Sodium 148 H (137-145) mmol/L Chloride 117.4 H (98-107) mmol/L BUN 24 H (9-20) mg/dL Creatinine 0.6 L (0.8-1.5) mg/dL Glucose 238 H (75-100) mg/dL POC Glucose (70-105) Calcium 7.9 L (8.4-10.2) mg/dL 11/20/18 Range/Units 05:15 RBC (3.65-5.03) M/mm3 Hgb (11.8-15.2) gm/dl Hct (35.5-45.6) % RDW (13.2-15.2) % Schleicher % (Auto) (0.0-7.3) % Schleicher # (0.0-0.8) K/mm3 ABG pO2 (80.0-90.0) mm Hg ABG Base Excess (-2.0-3.0) mmol/L ABG Hemoglobin (14.0-18.0) gm/dl Sodium (137-145) mmol/L Chloride (98-107) mmol/L BUN (9-20) mg/dL Creatinine (0.8-1.5) mg/dL Glucose (75-100) mg/dL POC Glucose 213 H (70-105) Calcium (8.4-10.2) mg/dL - Imaging and cardiology Chest x-ray: report reviewed, image reviewed (not much change.)
[2018-11-20] MEDS: APRESOLINE IV PRN (12:26)
[2018-11-20] MEDS: NORVASC PO SCH (12:27)
--- NOTE | 2018-11-20 13:54 | Event Note ---
Date: 11/20/18 Spoke with via the phone. She wants to continue full supportive care. Despite my clearly telling her that the wound will not heal and will only get worse, she wants to proceed with debridement. Will leave permission form on chart for her to sign. I was very clear that this wound will not heal and may cause him a lot of pain. She wants to proceed. Will debride at bedside once she comes to sign the permission form.
--- NOTE | 2018-11-20 14:06 | Progress Note ---
Assessment and Plan Assessment and plan: Acute on chronic resp failure Cont. tracheostomycare, secretion control and airway mangement Trach to ventilator Pulmonology following Severe Sepsis with septic shock due to VRE off vasopressors Blood cultures Enterococcus Faecium 4 of 4 bottles ID Physician following Continue antibiotics per ID recommendations, Zyvox 600 mg twice a day for total of 14 day Sacral decub ulcer. consulted surgery Diabetes mellitus type 2 Fingerstick q4h Anemia s/p 2 Units PRBC stool occult blood neg Hypertension by history. Monitor History of chronic hypoxic encephalopathy Hyperlipidemia Hypernatremia Hypokalemia Replete as needed Full code status Poor prognosis. I had a long discussion with the who wants to continue full supportive and aggressive care. Surgery also appears to have a discussion with the with regards to debridement of his wound. Disposition. seeking LTAC placement The high probability of a clinically significant, sudden or life threatening deterioration of the respiratory and skin system(s) required my full and direct attention, intervention and personal management. The aggregate critical care time was [32] minutes. This time is in addition to time spent performing reported procedures but includes the following: [x] Data Review and interpretation [x] Patient assessment and monitoring of vital signs [x] Documentation [x] Medication orders and management History Interval history: Patient is 77 yo resident at [facility] with chronic resp failure s/p trach, diabetes, BPH,hypertension, chronic hypoxic encephalopatyhy. He was sent to ED from nursing home facility because of difficulty breathing, respiratory distress. He was seen and evaluated in ED and duagnosed with acute on chronic respiratory failure failure and hypotension. He was put on ventilator since he already had a tracheostomy. He was diagnosed with sepsis with septic shock, started on iv Abx and previously required pressors which are off now Hospitalist Physical - Constitutional Vitals: Temp Pulse Resp BP Pulse Ox 97.4 F L 71 24 138/50 98 11/20/18 12:00 11/20/18 13:01 11/20/18 13:01 11/20/18 13:01 11/20/18 13:01 General appearance: Present: no acute distress, well-nourished, other (intubated on vent) - EENT Eyes: Present: PERRL, EOM intact ENT: hearing intact, clear oral mucosa, dentition normal - Neck Neck: Present: supple, normal ROM - Respiratory Respiratory effort: normal Respiratory: bilateral: CTA - Cardiovascular Rhythm: regular Heart Sounds: Present: S1 & S2. Absent: gallop, rub - Extremities Extremities: no ischemia, No edema, Full ROM - Abdominal General gastrointestinal: soft, non-tender, non-distended, normal bowel sounds - Integumentary Integumentary: Present: clear, warm, dry - Neurologic Neurologic: CNII-XII intact, moves all extremities Results - Labs CBC & Chem 7: 11/20/18 03:03 11/20/18 03:03 Labs: Laboratory Last Values WBC 8.3 K/mm3 (4.5-11.0) 11/20/18 03:03 RBC 3.04 M/mm3 (3.65-5.03) L 11/20/18 03:03 Hgb 8.4 gm/dl (11.8-15.2) L 11/20/18 03:03 Hct 26.1 % (35.5-45.6) L 11/20/18 03:03 MCV 86 fl (84-94) 11/20/18 03:03 MCH 28 pg (28-32) 11/20/18 03:03 MCHC 32 % (32-34) 11/20/18 03:03 RDW 18.1 % (13.2-15.2) H 11/20/18 03:03 Plt Count 225 K/mm3 (140-440) 11/20/18 03:03 Lymph % (Auto) 18.8 % (13.4-35.0) 11/20/18 03:03 Traverse % (Auto) 11.0 % (0.0-7.3) H 11/20/18 03:03 Eos % (Auto) 3.6 % (0.0-4.3) 11/20/18 03:03 Baso % (Auto) 0.4 % (0.0-1.8) 11/20/18 03:03 Lymph # 1.6 K/mm3 (1.2-5.4) 11/20/18 03:03 Traverse # 0.9 K/mm3 (0.0-0.8) H 11/20/18 03:03 Eos # 0.3 K/mm3 (0.0-0.4) 11/20/18 03:03 Baso # 0.0 K/mm3 (0.0-0.1) 11/20/18 03:03 Add Manual Diff Complete 11/13/18 14:00 Total Counted 100 11/13/18 14:00 Seg Neutrophils % 66.2 % (40.0-70.0) 11/20/18 03:03 Seg Neuts % (Manual) 87.0 % (40.0-70.0) H 11/13/18 14:00 0 % 11/13/18 14:00 5.0 % (13.4-35.0) L 11/13/18 14:00 Reactive Lymphs % (Man) 0 % 11/13/18 14:00 1.0 % (0.0-7.3) 11/13/18 14:00 7.0 % (0.0-4.3) H 11/13/18 14:00 0 % (0.0-1.8) 11/13/18 14:00 0 % 11/13/18 14:00 0 % 11/13/18 14:00 0 % 11/13/18 14:00 0 % 11/13/18 14:00 Nucleated RBC % Not Reportable 11/13/18 14:00 Seg Neutrophils # 5.5 K/mm3 (1.8-7.7) 11/20/18 03:03 Seg Neutrophils # Man 3.3 K/mm3 (1.8-7.7) 11/13/18 14:00 Band Neutrophils # 0.0 K/mm3 11/13/18 14:00 0.2 K/mm3 (1.2-5.4) L 11/13/18 14:00 Abs React Lymphs (Man) 0.0 K/mm3 11/13/18 14:00 0.0 K/mm3 (0.0-0.8) 11/13/18 14:00 0.3 K/mm3 (0.0-0.4) 11/13/18 14:00 0.0 K/mm3 (0.0-0.1) 11/13/18 14:00 0.0 K/mm3 11/13/18 14:00 0.0 K/mm3 11/13/18 14:00 0.0 K/mm3 11/13/18 14:00 Blast Cells # 0.0 K/mm3 11/13/18 14:00 WBC Morphology Not Reportable 11/13/18 14:00 Hypersegmented Neuts Not Reportable 11/13/18 14:00 Hyposegmented Neuts Not Reportable 11/13/18 14:00 Hypogranular Neuts Not Reportable 11/13/18 14:00 Not Reportable 11/13/18 14:00 Not Reportable 11/13/18 14:00 Not Reportable 11/13/18 14:00 Not Reportable 11/13/18 14:00 Not Reportable 11/13/18 14:00 Not Reportable 11/13/18 14:00 Consistent w auto 11/13/18 14:00 Not Reportable 11/13/18 14:00 Plt Clumps, EDTA Not Reportable 11/13/18 14:00 Not Reportable 11/13/18 14:00 Not Reportable 11/13/18 14:00 Not Reportable 11/13/18 14:00 Plt Morphology Comment Not Reportable 11/13/18 14:00 RBC Morphology Not Reportable 11/13/18 14:00 Dimorphic RBCs Not Reportable 11/13/18 14:00 Few 11/13/18 14:00 Not Reportable 11/13/18 14:00 Few 11/13/18 14:00 1+ 11/13/18 14:00 Not Reportable 11/13/18 14:00 Not Reportable 11/13/18 14:00 Few 11/13/18 14:00 Not Reportable 11/13/18 14:00 Not Reportable 11/13/18 14:00 Not Reportable 11/13/18 14:00 Not Reportable 11/13/18 14:00 Not Reportable 11/13/18 14:00 Not Reportable 11/13/18 14:00 Not Reportable 11/13/18 14:00 Not Reportable 11/13/18 14:00 Not Reportable 11/13/18 14:00 Not Reportable 11/13/18 14:00 Not Reportable 11/13/18 14:00 Not Reportable 11/13/18 14:00 Acanthocytes (Spur) Not Reportable 11/13/18 14:00 Rouleaux Not Reportable 11/13/18 14:00 Not Reportable 11/13/18 14:00 Not Reportable 11/13/18 14:00 Not Reportable 11/13/18 14:00 Not Reportable 11/13/18 14:00 Hem Pathologist Commnt No 11/13/18 14:00 POC ABG pH 7.463 (7.35-7.45) H 11/14/18 05:46 ABG pH 7.384 pH Units (7.350-7.450) 11/20/18 04:20 POC ABG pCO2 38.3 (35-45) 11/14/18 05:46 ABG pCO2 38.1 mm Hg 11/20/18 04:20 POC ABG pO2 136 (80-105) H 11/14/18 05:46 ABG pO2 91.3 mm Hg (80.0-90.0) H 11/20/18 04:20 POC ABG HCO3 27.4 (22-26 mml/L) 11/14/18 05:46 ABG HCO3 22.2 mmol/L (20.0-26.0) 11/20/18 04:20 POC ABG Total CO2 29 (23-27mmol/L) 11/14/18 05:46 POC ABG O2 Sat 99 11/14/18 05:46 ABG O2 Saturation 97.2 % (95.0-99.0) 11/20/18 04:20 ABG O2 Content 11.2 (0.0-44) 11/20/18 04:20 POC ABG Base Excess 4 ((-2) - (+3)mmol/L) 11/14/18 05:46 ABG Base Excess -2.6 mmol/L (-2.0-3.0) L 11/20/18 04:20 ABG Hemoglobin 8.3 gm/dl (14.0-18.0) L 11/20/18 04:20 ABG Carboxyhemoglobin 1.8 % (0.0-5.0) 11/20/18 04:20 ABG Methemoglobin 0.5 % (0.0-1.5) 11/20/18 04:20 95.0 % (95.0-99.0) 11/20/18 04:20 25 % 11/20/18 04:20 Sodium 148 mmol/L (137-145) H 11/20/18 03:03 Potassium 3.7 mmol/L (3.6-5.0) 11/20/18 03:03 Chloride 117.4 mmol/L (98-107) H 11/20/18 03:03 Carbon Dioxide 24 mmol/L (22-30) 11/20/18 03:03 10 mmol/L 11/20/18 03:03 BUN 24 mg/dL (9-20) H 11/20/18 03:03 0.6 mg/dL (0.8-1.5) L 11/20/18 03:03 Estimated GFR > 60 ml/min 11/20/18 03:03 40 % 11/20/18 03:03 Glucose 238 mg/dL (75-100) H 11/20/18 03:03 POC Glucose 318 (70-105) H 11/20/18 12:21 Lactic Acid 1.60 mmol/L (0.7-2.0) 11/14/18 12:50 Calcium 7.9 mg/dL (8.4-10.2) L 11/20/18 03:03 Magnesium 2.10 mg/dL (1.7-2.3) 11/15/18 12:00 0.70 mg/dL (0.1-1.2) 11/13/18 14:00 AST 154 units/L (5-40) H 11/13/18 14:00 ALT 134 units/L (7-56) H 11/13/18 14:00 586 units/L (35-129) H 11/13/18 14:00 510 units/L (55-170) H 11/13/18 14:49 CK-MB (CK-2) 4.4 ng/mL (0.0-4.0) H 11/13/18 14:49 CK-MB (CK-2) Rel Index 0.8 (0-4) 11/13/18 14:49 0.348 ng/mL (0.00-0.029) H* 11/13/18 14:49 NT-Pro-B Natriuret Pep 3679 pg/mL (0-900) H 11/13/18 14:49 6.8 g/dL (6.3-8.2) 11/13/18 14:00 1.2 g/dL (3.9-5) L 11/13/18 14:00 0.2 % 11/13/18 14:00 Triglycerides 284 mg/dL (2-149) H 11/13/18 14:49 Cholesterol 56 mg/dL (50-199) 11/13/18 14:49 4 mg/dL (50-130) L 11/13/18 14:49 7 mg/dL (40-59) L 11/13/18 14:49 8.00 % 11/13/18 14:49 Yellow (Yellow) 11/13/18 14:44 Slightly-cloudy (Clear) 11/13/18 14:44 6.0 (5.0-7.0) 11/13/18 14:44 Ur Specific Portal 1.017 (1.003-1.030) 11/13/18 14:44 30 mg/dl mg/dL (Negative) 11/13/18 14:44 Neg mg/dL (Negative) 11/13/18 14:44 Neg mg/dL (Negative) 11/13/18 14:44 Neg (Negative) 11/13/18 14:44 Neg (Negative) 11/13/18 14:44 Neg (Negative) 11/13/18 14:44 4.0 mg/dL (<2.0) 11/13/18 14:44 Ur Leukocyte Esterase Mod (Negative) 11/13/18 14:44 36.0 /HPF (0.0-6.0) H 11/13/18 14:44 21.0 /HPF (0.0-6.0) 11/13/18 14:44 1+ /HPF (Negative) 11/13/18 14:44 Few /HPF 11/13/18 14:44 3+ /HPF 11/13/18 14:44 Hepatitis A IgM Ab Non-reactive (NonReactive) 11/14/18 02:00 Hep Bs Antigen Non-reactive (Negative) 11/14/18 02:00 Hep B Core IgM Ab Non-reactive (NonReactive) 11/14/18 02:00 Non-reactive (NonReactive) 11/14/18 02:00 HIV 1&2 Antibody Rapid Non react (Non React) 11/14/18 02:00 Non react (Non React) 11/14/18 02:00 Blood Type O POSITIVE 11/13/18 14:49 Antibody Screen Negative 11/13/18 14:49 Crossmatch See Detail 11/13/18 14:49 Active Medications - Current Medications Current Medications: Generic Name Dose Route Start Last Admin Trade Name Freq PRN Reason Stop Dose Admin Albuterol 2.5 mg 11/19/18 17:21 Proventil IH Q6HRT PRN Shortness Of Breath Amlodipine Besylate 5 mg 11/20/18 13:00 11/20/18 12:27 Norvasc PO 5 mg QDAY LENCHO Administration Lipase/Protease/Amylase 1 each 11/14/18 14:20 Pancreaze 10,500 Unit FEEDTUBE PRN PRN For Clogged Feeding Tube Heparin Sodium (Porcine) 5,000 unit 11/14/18 03:30 11/20/18 09:50 Heparin SUB-Q 5,000 unit Q12HR LENCHO Administration Hydralazine HCl 10 mg 11/20/18 12:30 11/20/18 12:26 Apresoline IV 10 mg Q4H PRN Administration Blood Pressure Norepinephrine 8 mg/ Sodium 250 mls @ 3.75 mls/hr 11/14/18 09:00 11/18/18 07:38 Chloride IV 0 mcg/min TITR LENCHO 0 mls/hr Titration Protocol 2 MCG/MIN Vasopressin 20 unit/ Sodium 101 mls @ 9.09 mls/hr 11/14/18 09:00 11/15/18 04:05 Chloride IV 0 units/min TITR LENCHO 0 mls/hr Titration Protocol 0.03 UNITS/MIN Insulin Glargine 10 units 11/20/18 12:56 Lantus SUB-Q DAILY LENCHO Insulin Human Lispro 0 unit 11/14/18 06:00 11/20/18 12:27 Humalog SUB-Q 6 unit Q6HR LENCHO Administration Protocol Lansoprazole 30 mg 11/16/18 10:00 11/20/18 09:50 Prevacid Solutab FEEDTUBE 30 mg QDAY LENCHO Administration Linezolid 600 mg 11/19/18 10:00 11/20/18 09:50 Zyvox PO 600 mg BID LENCHO Administration Scopolamine 1 each 11/19/18 15:00 11/19/18 15:51 Transderm-Scop TD 1 each Q3D LENCHO Administration Simple Syrup 15 ml 11/14/18 14:20 Simple Syrup FEEDTUBE PRN PRN Hypoglycemia Simple Syrup 30 ml 11/14/18 14:20 Simple Syrup FEEDTUBE PRN PRN Hypoglycemia Sodium Bicarbonate 325 mg 11/14/18 14:20 Sodium Bicarbonate FEEDTUBE PRN PRN For Clogged Feeding Tube Sodium Hypochlorite 1 applic 11/16/18 13:00 11/20/18 09:51 Dakin's Half Strength TP 1 applicatio BID LENCHO Administration Nutrition/Malnutrition Assess - Dietary Evaluation Nutrition/Malnutrition Findings: Nutrition Notes Start: 11/14/18 10:33 Freq: Status: Active Protocol: Document 11/20/18 11:55 LM (Rec: 11/20/18 12:03 LM [id number]) Nutrition Notes Initial or Follow up Reassessment Current Diagnosis Acute Kidney Injury,Decubitus( Pressure Ulcer),Diabetes, Sepsis,Hypertension,Heart Failure,Respiratory Failure, Stroke Other Pertinent Diagnosis sacral wound, UTI, Dysphagia, Chronic encephalopathy Current Diet Vital AF 1.2 at 60 ml/hr Labs/Tests NA 148 Cr 0.6 BUN 24 BG 238 Pertinent Medications Humalog Height 5 ft 9 in Weight 84 kg [place] Body Weight (kg) 72.72 BMI 27.3 Subjective/Other Information TF running at 60 ml/hr. Pt tolerating TF. Percent of energy/protein needs met: 93%/100% Burn Absent Trauma Absent #1 Nutrition Diagnosis Inadequate oral intake Diagnosis Progress(for reassessment Continues documentation) Is patient on ventilator? Yes Is Patient Ambulatory and/or Out of Bed No REE-([facility]-confined to bed) [phone] Calculation Used for Recommendations [facility] Additional Notes Pro needs 1.2-2g/k-168g/ day Fluid needs 1ml/kcal Nutrition Intervention Change Diet Order: Continue TF Nutrition Support: Vital AF 1.2 at 60ml/hr with 100ml water flush q4h. Kcal 1,728 Protein (gm) 108 Carbohydrates (gm) 159 Fat (gm) 78 Fluid (mL) 1,168 Fiber (gm) 7 Goal #1 TF tolerance Goal #2 TF to meet at least 75% of energy and protein needs Anticipated Discharge Needs: Continue TF Follow-Up By: 11/24/18 Additional Comments F/U for TF tolerance and rate
[2018-11-20 21:24] LABS: ABG Base Excess -2.1 mmol/L (-2.0-3.0); ABG Methemoglobin 0.6 % (0.0-1.5); ABG Oxygen Saturation 97.2 % (95.0-99.0); ABG PCO2 35.5 mm Hg; ABG PH 7.41 pH Units (7.350-7.450); ABG PO2 90.8 mm Hg (80.0-90.0)
[2018-11-21 04:01] LABS: Basophils % (Auto) 0.6 % (0.0-1.8); Eosinophils # (Auto) 0.3 K/mm3 (0.0-0.4); Eosinophils % (Auto) 3.5 % (0.0-4.3); Hematocrit 26.1 % (35.5-45.6); Hemoglobin 8.5 gm/dl (11.8-15.2); Lymphocytes # (Auto) 1.4 K/mm3 (1.2-5.4); Lymphocytes % (Auto) 18.8 % (13.4-35.0); Mean Corpuscular HGB Conc 33 % (32-34); Mean Corpuscular Volume 85 fl (84-94); Monocytes # (Auto) 0.9 K/mm3 (0.0-0.8); Monocytes % (Auto) 12.2 % (0.0-7.3); Platelet Count 236 K/mm3 (140-440); Red Blood Count 3.05 M/mm3 (3.65-5.03); Red Cell Distribution Width 18.7 % (13.2-15.2)
[2018-11-21 04:25] LABS: BUN/Creatinine Ratio 37; Blood Urea Nitrogen 22 mg/dL (9-20); Calcium 7.7 mg/dL (8.4-10.2); Hemolysis Index 2
[2018-11-21] MEDS: HumaLOG SUB-Q SCH ×5 (05:45→23:43)
--- NOTE | 2018-11-21 09:43 | Progress Note ---
Assessment and Plan -Acute on chronic hypoxic respiratory failure on MVS -Severe sepsis with shock, off vasopressors -VRE bacteremia -UTI -Large sacaral decubitus ulcer -Acute on chronic metabolic encephalopathy -Orophargyngeal dysphagia s/p PEG -h/o CVAs -Transaminitis probably secondary to hypotension -Type 2 DM -Hypernatremia -Hypokalemia -VAP bundle addressed -Trach care, airway clearance and secretion management( tolerating PSV trials, will start ATP trial today) -Lung protective strategies -Accuchecks with glycemic control, continue with insulin infusion per protocol -Douglass catheter for accurate intake and output monitoring in this critically ill patient with history of chronic douglass/urinary retention/sacral decubitus ulcer -Avoid nephrotoxins -VTE prophylaxis -Stress ulcer prophylaxis -Antibiotics per ID, de-escalate as indicated( on Linezolid) -Daily SAT and SBT -Mobility and off loading for sacral decubitus -Wound care -Free water flushes and hypotonic solutions for hypernatremia -Optimize nutrition to help promote wound healing -Supportive transfusions as indicated, to keep HgB>7g/dL -Vasopressor support as indicated for MAP<65, with blood pressure unresponsive to volume resuscitation -Continue to monitor hemodynamics closely General surgery consult notes reviewed- poor candidate for wound debridement, poor chances of wound healing. wants to proceed with wound debridement. Consent for surgery to be signed by . She was at the bedside, updated her on the care plan and her questions were answered CONDITION: CRITICAL PROGNOSIS; POOR CODE STATUS: FULL Discussed care plan with RT and RN. Discussed during ICU-IDT rounds Goals of care need to be re-addressed with family The high probability of a clinically significant, sudden or life threatening deterioration of the respiratory, cardiovascular,endocrine, system(s) required my full and direct attention, intervention and personal management. The aggregate critical care time was [35] minutes. This time is in addition to time spent performing reported procedures but includes the following: [x] Data Review and interpretation [x]Patient assessment and monitoring of vital signs [x] Documentation [x] Medication orders and management Subjective Date of service: 11/21/18 Principal diagnosis: Severe sepsis with shock; Ac and ch resp failur; Metabolic encephalopathy Interval history: Patient known to our service. Per family request, care is being transferred back to us Patient is seen today for: Severe sepsis with septic shock; Acute and chronic respiratory failure on MVS; Acute and chronic metabolic encephalopathy; Seen and examined at bedside; 24hour events reviewed; nursing and respiratory care staff consulted; resting peacefully in bed; tolerating PSV this morning, remains off vasopressor support; Vitals, labs, medications, chart reviewed. AMS is persistent; tolerating tube feeds; afebrile; Objective Vital Signs - 12hr 11/20/18 11/20/18 11/20/18 22:01 22:31 22:45 Temperature Pulse Rate 80 65 65 Pulse Rate [ 85 From Monitor] Respiratory 22 29 H 15 Rate Blood Pressure 141/60 140/66 O2 Sat by Pulse 97 97 100 Oximetry O2 Sat by Pulse Oximetry [ Assessment] 11/20/18 11/20/18 11/20/18 22:58 23:00 23:10 Temperature 98.4 F Pulse Rate 78 80 Pulse Rate [ From Monitor] Respiratory 20 15 Rate Blood Pressure 143/58 143/58 O2 Sat by Pulse 100 97 Oximetry O2 Sat by Pulse Oximetry [ Assessment] 11/20/18 11/21/18 11/21/18 23:30 00:01 00:15 Temperature Pulse Rate 77 77 75 Pulse Rate [ 85 From Monitor] Respiratory 22 21 15 Rate Blood Pressure 136/57 136/50 O2 Sat by Pulse 97 98 100 Oximetry O2 Sat by Pulse Oximetry [ Assessment] 11/21/18 11/21/18 11/21/18 00:21 00:30 01:01 Temperature Pulse Rate 76 76 76 Pulse Rate [ From Monitor] Respiratory 21 19 Rate Blood Pressure 132/59 133/59 134/57 O2 Sat by Pulse 100 97 97 Oximetry O2 Sat by Pulse Oximetry [ Assessment] 11/21/18 11/21/18 11/21/18 01:30 02:00 02:15 Temperature Pulse Rate 76 75 75 Pulse Rate [ 77 From Monitor] Respiratory 18 13 15 Rate Blood Pressure 136/61 130/58 O2 Sat by Pulse 97 97 100 Oximetry O2 Sat by Pulse Oximetry [ Assessment] 11/21/18 11/21/18 11/21/18 02:30 03:00 03:05 Temperature 98.2 F Pulse Rate 77 79 Pulse Rate [ From Monitor] Respiratory 21 20 Rate Blood Pressure 138/57 143/59 O2 Sat by Pulse 98 97 Oximetry O2 Sat by Pulse Oximetry [ Assessment] 11/21/18 11/21/1819 03:30 04:00 04:15 Temperature Pulse Rate 78 74 74 Pulse Rate [ 77 From Monitor] Respiratory 20 12 15 Rate Blood Pressure 146/61 138/61 O2 Sat by Pulse 98 98 100 Oximetry O2 Sat by Pulse Oximetry [ Assessment] 11/21/18 11/21/18 11/21/18 04:30 05:00 05:19 Temperature Pulse Rate 74 76 76 Pulse Rate [ 77 From Monitor] Respiratory 14 15 15 Rate Blood Pressure 141/77 149/63 O2 Sat by Pulse 97 98 100 Oximetry O2 Sat by Pulse Oximetry [ Assessment] 11/21/18 11/21/18 11/21/18 05:43 05:48 08:00 Temperature 98.5 F Pulse Rate 76 Pulse Rate [ From Monitor] Respiratory Rate Blood Pressure 129/60 O2 Sat by Pulse 100 Oximetry O2 Sat by Pulse 100 Oximetry [ Assessment] 11/21/18 08:35 Temperature Pulse Rate 63 Pulse Rate [ From Monitor] Respiratory Rate Blood Pressure 153/60 O2 Sat by Pulse 100 Oximetry O2 Sat by Pulse Oximetry [ Assessment] Constitutional: no acute distress, other (on vent, trach in place, no patient- ventilator dys-synchrony) Eyes: non-icteric ENT: oropharynx moist Neck: supple, no lymphadenopathy, no JVD Effort: normal Ascultation: Left: rales, Bilateral: diminished breath sounds Percussion: Bilateral: not dull Cardiovascular: regular rate and rhythm, other (S1,S2) Gastrointestinal: normoactive bowel sounds, soft, non-distended, other (PEG in place, chronic douglass catheter) Integumentary: decubitus ulcer (see wound care notes) Extremities: no cyanosis, edema Neurologic: unable to assess (on vent), other (encephalopathic, unresponsive) Psychiatric: other (unable to assess) CBC and BMP: 11/21/18 03:09 11/21/18 03:09 ABG, PT/INR, D-dimer: ABG POC ABG pH 7.463 (7.35-7.45) H 11/14/18 05:46 ABG pH 7.410 pH Units (7.350-7.450) 11/20/18 20:50 POC ABG pCO2 38.3 (35-45) 11/14/18 05:46 ABG pCO2 35.5 mm Hg 11/20/18 20:50 POC ABG pO2 136 (80-105) H 11/14/18 05:46 ABG pO2 90.8 mm Hg (80.0-90.0) H 11/20/18 20:50 POC ABG HCO3 27.4 (22-26 mml/L) 11/14/18 05:46 POC ABG Total CO2 29 (23-27mmol/L) 11/14/18 05:46 POC ABG O2 Sat 99 11/14/18 05:46 ABG O2 Saturation 97.2 % (95.0-99.0) 11/20/18 20:50 Abnormal lab findings: Abnormal Labs 11/13/18 11/13/18 11/13/18 03:30 14:00 14:00 WBC 3.8 L RBC 2.80 L Hgb 7.4 L Hct 22.9 L MCV 82 L MCH 27 L MCHC RDW 19.0 H Lymph % (Auto) [place] % (Auto) [place] # Seg Neutrophils % Seg Neuts % (Manual) 87.0 H Lymphocytes % (Manual) 5.0 L Eosinophils % (Manual) 7.0 H Seg Neutrophils # Lymphocytes # (Manual) 0.2 L POC ABG pH POC ABG pO2 ABG pO2 ABG Base Excess ABG Hemoglobin Oxyhemoglobin Sodium 147 H Potassium Chloride Carbon Dioxide 33 H BUN 50 H Creatinine Glucose 193 H POC Glucose Lactic Acid 3.70 H* Calcium 8.1 L AST 154 H ALT 134 H Alkaline Phosphatase 586 H Total Creatine Kinase CK-MB (CK-2) Troponin T NT-Pro-B Natriuret Pep Albumin 1.2 L Triglycerides LDL Cholesterol Direct HDL Cholesterol Urine WBC (Auto) Crossmatch 11/13/18 11/13/18 11/13/18 14:00 14:44 14:49 WBC RBC Hgb Hct MCV MCH MCHC RDW Lymph % (Auto) [place] % (Auto) [place] # Seg Neutrophils % Seg Neuts % (Manual) Lymphocytes % (Manual) Eosinophils % (Manual) Seg Neutrophils # Lymphocytes # (Manual) POC ABG pH POC ABG pO2 ABG pO2 ABG Base Excess ABG Hemoglobin Oxyhemoglobin Sodium Potassium Chloride Carbon Dioxide BUN Creatinine Glucose POC Glucose Lactic Acid 2.60 H* Calcium AST ALT Alkaline Phosphatase Total Creatine Kinase 510 H CK-MB (CK-2) 4.4 H Troponin T 0.348 H* NT-Pro-B Natriuret Pep 3679 H Albumin Triglycerides 284 H LDL Cholesterol Direct 4 L HDL Cholesterol 7 L Urine WBC (Auto) 36.0 H Crossmatch 11/13/18 11/13/18 11/13/18 14:49 14:49 14:52 WBC RBC Hgb Hct MCV MCH MCHC RDW Lymph % (Auto) [place] % (Auto) [place] # Seg Neutrophils % Seg Neuts % (Manual) Lymphocytes % (Manual) Eosinophils % (Manual) Seg Neutrophils # Lymphocytes # (Manual) POC ABG pH POC ABG pO2 ABG pO2 ABG Base Excess ABG Hemoglobin Oxyhemoglobin Sodium Potassium Chloride Carbon Dioxide BUN Creatinine Glucose POC Glucose 205 H Lactic Acid 3.90 H* Calcium AST ALT Alkaline Phosphatase Total Creatine Kinase CK-MB (CK-2) Troponin T NT-Pro-B Natriuret Pep Albumin Triglycerides LDL Cholesterol Direct HDL Cholesterol Urine WBC (Auto) Crossmatch See Detail 11/13/18 11/13/18 11/13/18 16:58 17:13 19:46 WBC RBC Hgb Hct MCV MCH MCHC RDW Lymph % (Auto) [place] % (Auto) [place] # Seg Neutrophils % Seg Neuts % (Manual) Lymphocytes % (Manual) Eosinophils % (Manual) Seg Neutrophils # Lymphocytes # (Manual) POC ABG pH 7.573 H POC ABG pO2 ABG pO2 ABG Base Excess ABG Hemoglobin Oxyhemoglobin Sodium Potassium Chloride Carbon Dioxide BUN Creatinine Glucose POC Glucose Lactic Acid 3.90 H* 4.40 H* Calcium AST ALT Alkaline Phosphatase Total Creatine Kinase CK-MB (CK-2) Troponin T NT-Pro-B Natriuret Pep Albumin Triglycerides LDL Cholesterol Direct HDL Cholesterol Urine WBC (Auto) Crossmatch 11/13/18 11/14/18 11/14/18 21:34 04:50 05:23 WBC RBC Hgb Hct MCV MCH MCHC RDW Lymph % (Auto) [place] % (Auto) [place] # Seg Neutrophils % Seg Neuts % (Manual) Lymphocytes % (Manual) Eosinophils % (Manual) Seg Neutrophils # Lymphocytes # (Manual) POC ABG pH POC ABG pO2 ABG pO2 120.8 H ABG Base Excess ABG Hemoglobin 10.9 L Oxyhemoglobin Sodium Potassium Chloride Carbon Dioxide BUN Creatinine Glucose POC Glucose 263 H Lactic Acid 4.50 H* Calcium AST ALT Alkaline Phosphatase Total Creatine Kinase CK-MB (CK-2) Troponin T NT-Pro-B Natriuret Pep Albumin Triglycerides LDL Cholesterol Direct HDL Cholesterol Urine WBC (Auto) Crossmatch 11/14/18 11/14/18 11/14/18 05:46 08:02 12:42 WBC RBC Hgb Hct MCV MCH MCHC RDW Lymph % (Auto) [place] % (Auto) [place] # Seg Neutrophils % Seg Neuts % (Manual) Lymphocytes % (Manual) Eosinophils % (Manual) Seg Neutrophils # Lymphocytes # (Manual) POC ABG pH 7.463 H POC ABG pO2 136 H ABG pO2 ABG Base Excess ABG Hemoglobin Oxyhemoglobin Sodium Potassium Chloride Carbon Dioxide BUN Creatinine Glucose POC Glucose 213 H Lactic Acid 2.70 H* Calcium AST ALT Alkaline Phosphatase Total Creatine Kinase CK-MB (CK-2) Troponin T NT-Pro-B Natriuret Pep Albumin Triglycerides LDL Cholesterol Direct HDL Cholesterol Urine WBC (Auto) Crossmatch 11/14/18 11/14/18 11/14/18 14:17 14:17 15:50 WBC 13.1 H 13.1 H RBC 2.36 L 2.36 L Hgb 6.1 L 6.1 L Hct 19.6 L* 19.4 L* MCV 83 L 82 L MCH 26 L 26 L MCHC 31 L 31 L RDW 19.4 H 19.3 H Lymph % (Auto) [place] % (Auto) [place] # Seg Neutrophils % Seg Neuts % (Manual) Lymphocytes % (Manual) Eosinophils % (Manual) Seg Neutrophils # Lymphocytes # (Manual) POC ABG pH POC ABG pO2 ABG pO2 ABG Base Excess ABG Hemoglobin Oxyhemoglobin Sodium 148 H Potassium Chloride 110.3 H Carbon Dioxide BUN 56 H Creatinine Glucose 203 H POC Glucose Lactic Acid Calcium 7.6 L AST ALT Alkaline Phosphatase Total Creatine Kinase CK-MB (CK-2) Troponin T NT-Pro-B Natriuret Pep Albumin Triglycerides LDL Cholesterol Direct HDL Cholesterol Urine WBC (Auto) Crossmatch 11/14/18 11/14/18 11/15/18 18:19 23:52 05:10 WBC 16.2 H RBC 3.22 L Hgb 8.8 L Hct 26.8 L D MCV 83 L MCH 27 L MCHC RDW 16.8 H Lymph % (Auto) [place] % (Auto) [place] # Seg Neutrophils % Seg Neuts % (Manual) Lymphocytes % (Manual) Eosinophils % (Manual) Seg Neutrophils # Lymphocytes # (Manual) POC ABG pH POC ABG pO2 ABG pO2 ABG Base Excess ABG Hemoglobin Oxyhemoglobin Sodium Potassium Chloride Carbon Dioxide BUN Creatinine Glucose POC Glucose 213 H 242 H Lactic Acid Calcium AST ALT Alkaline Phosphatase Total Creatine Kinase CK-MB (CK-2) Troponin T NT-Pro-B Natriuret Pep Albumin Triglycerides LDL Cholesterol Direct HDL Cholesterol Urine WBC (Auto) Crossmatch 11/15/18 11/15/18 11/15/18 05:10 05:36 11:15 WBC RBC Hgb Hct MCV MCH MCHC RDW Lymph % (Auto) [place] % (Auto) [place] # Seg Neutrophils % Seg Neuts % (Manual) Lymphocytes % (Manual) Eosinophils % (Manual) Seg Neutrophils # Lymphocytes # (Manual) POC ABG pH POC ABG pO2 ABG pO2 ABG Base Excess ABG Hemoglobin Oxyhemoglobin Sodium 148 H Potassium 3.5 L Chloride 112.8 H Carbon Dioxide BUN 51 H Creatinine Glucose 154 H POC Glucose 143 H 139 H Lactic Acid Calcium 7.8 L AST ALT Alkaline Phosphatase Total Creatine Kinase CK-MB (CK-2) Troponin T NT-Pro-B Natriuret Pep Albumin Triglycerides LDL Cholesterol Direct HDL Cholesterol Urine WBC (Auto) Crossmatch 11/15/18 11/15/18 11/15/18 12:00 18:28 20:56 WBC RBC Hgb Hct MCV MCH MCHC RDW Lymph % (Auto) [place] % (Auto) [place] # Seg Neutrophils % Seg Neuts % (Manual) Lymphocytes % (Manual) Eosinophils % (Manual) Seg Neutrophils # Lymphocytes # (Manual) POC ABG pH POC ABG pO2 ABG pO2 ABG Base Excess ABG Hemoglobin Oxyhemoglobin Sodium 148 H Potassium 3.2 L Chloride 113.0 H Carbon Dioxide BUN 44 H Creatinine Glucose 144 H POC Glucose 159 H 150 H Lactic Acid Calcium 7.7 L AST ALT Alkaline Phosphatase Total Creatine Kinase CK-MB (CK-2) Troponin T NT-Pro-B Natriuret Pep Albumin Triglycerides LDL Cholesterol Direct HDL Cholesterol Urine WBC (Auto) Crossmatch 11/15/18 11/16/18 11/16/18 23:32 03:40 03:45 WBC 16.1 H RBC 3.30 L Hgb 8.9 L Hct 27.9 L MCV MCH 27 L MCHC RDW 17.5 H Lymph % (Auto) [place] % (Auto) [place] # Seg Neutrophils % Seg Neuts % (Manual) Lymphocytes % (Manual) Eosinophils % (Manual) Seg Neutrophils # Lymphocytes # (Manual) POC ABG pH POC ABG pO2 ABG pO2 147.0 H ABG Base Excess ABG Hemoglobin 12.0 L Oxyhemoglobin Sodium Potassium Chloride Carbon Dioxide BUN Creatinine Glucose POC Glucose 131 H Lactic Acid Calcium AST ALT Alkaline Phosphatase Total Creatine Kinase CK-MB (CK-2) Troponin T NT-Pro-B Natriuret Pep Albumin Triglycerides LDL Cholesterol Direct HDL Cholesterol Urine WBC (Auto) Crossmatch 11/16/18 11/16/18 11/16/18 03:45 05:15 15:14 WBC RBC Hgb Hct MCV MCH MCHC RDW Lymph % (Auto) [place] % (Auto) [place] # Seg Neutrophils % Seg Neuts % (Manual) Lymphocytes % (Manual) Eosinophils % (Manual) Seg Neutrophils # Lymphocytes # (Manual) POC ABG pH POC ABG pO2 ABG pO2 ABG Base Excess ABG Hemoglobin Oxyhemoglobin Sodium 149 H Potassium 3.5 L Chloride 116.2 H Carbon Dioxide 21 L BUN 41 H Creatinine Glucose 146 H POC Glucose 155 H 215 H Lactic Acid Calcium 7.7 L AST ALT Alkaline Phosphatase Total Creatine Kinase CK-MB (CK-2) Troponin T NT-Pro-B Natriuret Pep Albumin Triglycerides LDL Cholesterol Direct HDL Cholesterol Urine WBC (Auto) Crossmatch 11/16/18 11/16/18 11/17/18 18:20 23:49 04:49 WBC 12.1 H RBC 3.34 L Hgb 9.0 L Hct 28.1 L MCV MCH 27 L MCHC RDW 17.5 H Lymph % (Auto) [place] % (Auto) [place] # Seg Neutrophils % Seg Neuts % (Manual) Lymphocytes % (Manual) Eosinophils % (Manual) Seg Neutrophils # Lymphocytes # (Manual) POC ABG pH POC ABG pO2 ABG pO2 ABG Base Excess ABG Hemoglobin Oxyhemoglobin Sodium Potassium Chloride Carbon Dioxide BUN Creatinine Glucose POC Glucose 230 H 189 H Lactic Acid Calcium AST ALT Alkaline Phosphatase Total Creatine Kinase CK-MB (CK-2) Troponin T NT-Pro-B Natriuret Pep Albumin Triglycerides LDL Cholesterol Direct HDL Cholesterol Urine WBC (Auto) Crossmatch 11/17/18 11/17/18 11/17/18 04:49 05:45 14:16 WBC RBC Hgb Hct MCV MCH MCHC RDW Lymph % (Auto) [place] % (Auto) [place] # Seg Neutrophils % Seg Neuts % (Manual) Lymphocytes % (Manual) Eosinophils % (Manual) Seg Neutrophils # Lymphocytes # (Manual) POC ABG pH POC ABG pO2 ABG pO2 ABG Base Excess ABG Hemoglobin Oxyhemoglobin Sodium 150 H Potassium 3.2 L Chloride 118.9 H Carbon Dioxide 20 L BUN 38 H Creatinine 0.7 L Glucose 164 H POC Glucose 181 H 172 H Lactic Acid Calcium 7.7 L AST ALT Alkaline Phosphatase Total Creatine Kinase CK-MB (CK-2) Troponin T NT-Pro-B Natriuret Pep Albumin Triglycerides LDL Cholesterol Direct HDL Cholesterol Urine WBC (Auto) Crossmatch 11/17/18 11/17/18 11/18/18 23:36 Unknown 04:10 WBC RBC Hgb Hct MCV MCH MCHC RDW Lymph % (Auto) [place] % (Auto) [place] # Seg Neutrophils % Seg Neuts % (Manual) Lymphocytes % (Manual) Eosinophils % (Manual) Seg Neutrophils # Lymphocytes # (Manual) POC ABG pH POC ABG pO2 ABG pO2 105.9 H 101.8 H ABG Base Excess -2.3 L -3.2 L ABG Hemoglobin 11.5 L 10.2 L Oxyhemoglobin Sodium Potassium Chloride Carbon Dioxide BUN Creatinine Glucose POC Glucose 214 H Lactic Acid Calcium AST ALT Alkaline Phosphatase Total Creatine Kinase CK-MB (CK-2) Troponin T NT-Pro-B Natriuret Pep Albumin Triglycerides LDL Cholesterol Direct HDL Cholesterol Urine WBC (Auto) Crossmatch 11/18/18 11/18/18 11/18/18 04:37 04:37 05:36 WBC RBC 3.10 L Hgb 8.5 L Hct 26.8 L MCV MCH 27 L MCHC RDW 17.8 H Lymph % (Auto) 12.8 L [place] % (Auto) 8.5 H [place] # 0.9 H Seg Neutrophils % 75.8 H Seg Neuts % (Manual) Lymphocytes % (Manual) Eosinophils % (Manual) Seg Neutrophils # 8.0 H Lymphocytes # (Manual) POC ABG pH POC ABG pO2 ABG pO2 ABG Base Excess ABG Hemoglobin Oxyhemoglobin Sodium 148 H Potassium 3.3 L Chloride 118.3 H Carbon Dioxide 20 L BUN 32 H Creatinine 0.7 L Glucose 154 H POC Glucose 171 H Lactic Acid Calcium 7.4 L AST ALT Alkaline Phosphatase Total Creatine Kinase CK-MB (CK-2) Troponin T NT-Pro-B Natriuret Pep Albumin Triglycerides LDL Cholesterol Direct HDL Cholesterol Urine WBC (Auto) Crossmatch 11/18/18 11/18/18 11/18/18 12:10 17:27 23:56 WBC RBC Hgb Hct MCV MCH MCHC RDW Lymph % (Auto) [place] % (Auto) [place] # Seg Neutrophils % Seg Neuts % (Manual) Lymphocytes % (Manual) Eosinophils % (Manual) Seg Neutrophils # Lymphocytes # (Manual) POC ABG pH POC ABG pO2 ABG pO2 ABG Base Excess ABG Hemoglobin Oxyhemoglobin Sodium Potassium Chloride Carbon Dioxide BUN Creatinine Glucose POC Glucose 244 H 239 H 241 H Lactic Acid Calcium AST ALT Alkaline Phosphatase Total Creatine Kinase CK-MB (CK-2) Troponin T NT-Pro-B Natriuret Pep Albumin Triglycerides LDL Cholesterol Direct HDL Cholesterol Urine WBC (Auto) Crossmatch 11/19/18 11/19/18 11/19/18 03:45 04:27 06:37 WBC RBC Hgb Hct MCV MCH MCHC RDW Lymph % (Auto) [place] % (Auto) [place] # Seg Neutrophils % Seg Neuts % (Manual) Lymphocytes % (Manual) Eosinophils % (Manual) Seg Neutrophils # Lymphocytes # (Manual) POC ABG pH POC ABG pO2 ABG pO2 95.5 H ABG Base Excess -4.0 L ABG Hemoglobin 5.9 L Oxyhemoglobin Sodium 147 H Potassium Chloride 119.2 H Carbon Dioxide 20 L BUN 28 H Creatinine 0.6 L Glucose 181 H POC Glucose 220 H Lactic Acid Calcium 7.6 L AST ALT Alkaline Phosphatase Total Creatine Kinase CK-MB (CK-2) Troponin T NT-Pro-B Natriuret Pep Albumin Triglycerides LDL Cholesterol Direct HDL Cholesterol Urine WBC (Auto) Crossmatch 11/19/18 11/19/18 11/19/18 06:41 11:27 17:31 WBC RBC 3.28 L Hgb 9.0 L Hct 28.2 L MCV MCH MCHC RDW 17.9 H Lymph % (Auto) [place] % (Auto) 11.0 H [place] # 1.1 H Seg Neutrophils % Seg Neuts % (Manual) Lymphocytes % (Manual) Eosinophils % (Manual) Seg Neutrophils # Lymphocytes # (Manual) POC ABG pH POC ABG pO2 ABG pO2 ABG Base Excess ABG Hemoglobin Oxyhemoglobin Sodium Potassium Chloride Carbon Dioxide BUN Creatinine Glucose POC Glucose 280 H 300 H Lactic Acid Calcium AST ALT Alkaline Phosphatase Total Creatine Kinase CK-MB (CK-2) Troponin T NT-Pro-B Natriuret Pep Albumin Triglycerides LDL Cholesterol Direct HDL Cholesterol Urine WBC (Auto) Crossmatch 11/19/18 11/20/18 11/20/18 23:30 03:03 03:03 WBC RBC 3.04 L Hgb 8.4 L Hct 26.1 L MCV MCH MCHC RDW 18.1 H Lymph % (Auto) [place] % (Auto) 11.0 H [place] # 0.9 H Seg Neutrophils % Seg Neuts % (Manual) Lymphocytes % (Manual) Eosinophils % (Manual) Seg Neutrophils # Lymphocytes # (Manual) POC ABG pH POC ABG pO2 ABG pO2 ABG Base Excess ABG Hemoglobin Oxyhemoglobin Sodium 148 H Potassium Chloride 117.4 H Carbon Dioxide BUN 24 H Creatinine 0.6 L Glucose 238 H POC Glucose 251 H Lactic Acid Calcium 7.9 L AST ALT Alkaline Phosphatase Total Creatine Kinase CK-MB (CK-2) Troponin T NT-Pro-B Natriuret Pep Albumin Triglycerides LDL Cholesterol Direct HDL Cholesterol Urine WBC (Auto) Crossmatch 11/20/18 11/20/18 11/20/18 04:20 05:15 12:21 WBC RBC Hgb Hct MCV MCH MCHC RDW Lymph % (Auto) [place] % (Auto) [place] # Seg Neutrophils % Seg Neuts % (Manual) Lymphocytes % (Manual) Eosinophils % (Manual) Seg Neutrophils # Lymphocytes # (Manual) POC ABG pH POC ABG pO2 ABG pO2 91.3 H ABG Base Excess -2.6 L ABG Hemoglobin 8.3 L Oxyhemoglobin Sodium Potassium Chloride Carbon Dioxide BUN Creatinine Glucose POC Glucose 213 H 318 H Lactic Acid Calcium AST ALT Alkaline Phosphatase Total Creatine Kinase CK-MB (CK-2) Troponin T NT-Pro-B Natriuret Pep Albumin Triglycerides LDL Cholesterol Direct HDL Cholesterol Urine WBC (Auto) Crossmatch 11/20/18 11/20/18 11/20/18 18:01 20:50 23:36 WBC RBC Hgb Hct MCV MCH MCHC RDW Lymph % (Auto) [place] % (Auto) [place] # Seg Neutrophils % Seg Neuts % (Manual) Lymphocytes % (Manual) Eosinophils % (Manual) Seg Neutrophils # Lymphocytes # (Manual) POC ABG pH POC ABG pO2 ABG pO2 90.8 H ABG Base Excess -2.1 L ABG Hemoglobin 13.4 L Oxyhemoglobin 94.9 L Sodium Potassium Chloride Carbon Dioxide BUN Creatinine Glucose POC Glucose 301 H 290 H Lactic Acid Calcium AST ALT Alkaline Phosphatase Total Creatine Kinase CK-MB (CK-2) Troponin T NT-Pro-B Natriuret Pep Albumin Triglycerides LDL Cholesterol Direct HDL Cholesterol Urine WBC (Auto) Crossmatch 11/21/18 11/21/18 11/21/18 03:09 03:09 05:10 WBC RBC 3.05 L Hgb 8.5 L Hct 26.1 L MCV MCH MCHC RDW 18.7 H Lymph % (Auto) [place] % (Auto) 12.2 H [place] # 0.9 H Seg Neutrophils % Seg Neuts % (Manual) Lymphocytes % (Manual) Eosinophils % (Manual) Seg Neutrophils # Lymphocytes # (Manual) POC ABG pH POC ABG pO2 ABG pO2 ABG Base Excess ABG Hemoglobin Oxyhemoglobin Sodium 150 H Potassium 3.5 L Chloride 118.5 H Carbon Dioxide BUN 22 H Creatinine 0.6 L Glucose 279 H POC Glucose 307 H Lactic Acid Calcium 7.7 L AST ALT Alkaline Phosphatase Total Creatine Kinase CK-MB (CK-2) Troponin T NT-Pro-B Natriuret Pep Albumin Triglycerides LDL Cholesterol Direct HDL Cholesterol Urine WBC (Auto) Crossmatch Allied health notes reviewed: RT
--- NOTE | 2018-11-21 10:35 | Progress Note ---
Assessment and Plan Cultures: 11/13 BCx - VRE 11/13 UCx - >100k mixed kole 11/13 Sputum Cx - not run due to contamination 11/16/2018 Blood culture: no growth thus far A/P: 77 yo M PMHx CVA, seizures, HTN, DM2 admitted for worsenign respiratory status. 1. Septic shock secondary to VRE bacteremia: Off pressors. Source: urine v/s large sacral decubitus ulcer. TTE poor windows, if repeat blood cultures remain negative, would not recommend GLORIA since overall prognosis remains extremely poor and he is not going to be a candidate for any valve surgeries. Repeat blood cultures are negative. 2. Acute on chronic respiratory failure - CXR with congestion, no focal infiltrate to suggest pneumonia. VRE / Enterococcus rarely causes pneumonia. 3. UTI - Urine cultures with mixed kole. >100 CFU, probably cause of Enterococcal bacteremia. 4. Large sacral decubitus ulcer, infected, with eschar: could be the source of the VRE bacteremia. Appreciate General Surgery recommendations. Agree that prognosis is extremely poor. Noted plans for surgical debridement based on discussion with in spite of no hope for cure. 5. DM-2 6. Hx of CVA: s/p trach and PEG. 7. Elevated LFTs: probably from sepsis. RUQ US showed collapsed GB, no gallstones, trace ascites and hepatic steatosis. Recs: - continue PO Linezolid 600 mg BID. Today is Day 6 of 14 day therapy - monitor platelets while on linezolid - noted plans for debridement of the wound - continue wound care and contact isolation - overall prognosis remains extremely poor Tiara Corcoran MD, FACP [facility] ([facility]) M: [phone] O: [phone] F: [phone] Subjective Date of service: 11/21/18 Principal diagnosis: Severe sepsis with shock; Ac and ch resp failur; Metabolic encephalopathy Interval history: Afebrile. Remains on the vent via trach, unresponsive. Objective - Exam Narrative Exam: Physical Exam: Constitutional: unresponsive, on vent. Head, Ears, Nose: Normocephalic, atraumatic. External ears, nose normal Eyes: Conjunctivae/corneas clear. No icterus. No ptosis. Neck: trach + Oral: unable to examine Cardiovascular: S1, S2 normal. Respiratory: Good air entry, clear to auscultation bilaterally GI: Soft, PEG +; bowel sounds +, rectal tube + Musculoskeletal: 2+ pedal edema +, no cyanosis. Skin: Large sacral decubitus with eschar with dressing + Hem/Lymphatic: No palpable cervical or supraclavicular nodes. No lymphangitis Psych: no agitation Neurological: unresponsive, on vent - Constitutional Vitals: Vital Signs Temp Pulse Resp BP Pulse Ox 98.5 F 62 21 157/62 100 11/21/18 08:00 11/21/18 09:31 11/21/18 09:31 11/21/18 09:31 11/21/18 09:31 Temperature -Last 24 Hours Temperature 98.5 F Temperature 98.2 F Temperature 98.4 F Temperature 97.4 F Temperature 97.3 F Temperature 97.4 F - Labs CBC & Chem 7: 11/21/18 03:09 11/21/18 03:09 Labs: Abnormal lab results 11/20/18 11/20/18 11/20/18 Range/Units 12:21 18:01 20:50 RBC (3.65-5.03) M/mm3 Hgb (11.8-15.2) gm/dl Hct (35.5-45.6) % RDW (13.2-15.2) % [place] % (Auto) (0.0-7.3) % [place] # (0.0-0.8) K/mm3 ABG pO2 90.8 H (80.0-90.0) mm Hg ABG Base Excess -2.1 L (-2.0-3.0) mmol/L ABG Hemoglobin 13.4 L (14.0-18.0) gm/dl Oxyhemoglobin 94.9 L (95.0-99.0) % Sodium (137-145) mmol/L Potassium (3.6-5.0) mmol/L Chloride (98-107) mmol/L BUN (9-20) mg/dL Creatinine (0.8-1.5) mg/dL Glucose (75-100) mg/dL POC Glucose 318 H 301 H (70-105) Calcium (8.4-10.2) mg/dL 11/20/18 11/21/18 11/21/18 Range/Units 23:36 03:09 03:09 RBC 3.05 L (3.65-5.03) M/mm3 Hgb 8.5 L (11.8-15.2) gm/dl Hct 26.1 L (35.5-45.6) % RDW 18.7 H (13.2-15.2) % [place] % (Auto) 12.2 H (0.0-7.3) % [place] # 0.9 H (0.0-0.8) K/mm3 ABG pO2 (80.0-90.0) mm Hg ABG Base Excess (-2.0-3.0) mmol/L ABG Hemoglobin (14.0-18.0) gm/dl Oxyhemoglobin (95.0-99.0) % Sodium 150 H (137-145) mmol/L Potassium 3.5 L (3.6-5.0) mmol/L Chloride 118.5 H (98-107) mmol/L BUN 22 H (9-20) mg/dL Creatinine 0.6 L (0.8-1.5) mg/dL Glucose 279 H (75-100) mg/dL POC Glucose 290 H (70-105) Calcium 7.7 L (8.4-10.2) mg/dL 11/21/18 Range/Units 05:10 RBC (3.65-5.03) M/mm3 Hgb (11.8-15.2) gm/dl Hct (35.5-45.6) % RDW (13.2-15.2) % [place] % (Auto) (0.0-7.3) % [place] # (0.0-0.8) K/mm3 ABG pO2 (80.0-90.0) mm Hg ABG Base Excess (-2.0-3.0) mmol/L ABG Hemoglobin (14.0-18.0) gm/dl Oxyhemoglobin (95.0-99.0) % Sodium (137-145) mmol/L Potassium (3.6-5.0) mmol/L Chloride (98-107) mmol/L BUN (9-20) mg/dL Creatinine (0.8-1.5) mg/dL Glucose (75-100) mg/dL POC Glucose 307 H (70-105) Calcium (8.4-10.2) mg/dL
[2018-11-21] MEDS: DAKIN'S HALF STRENGTH TP SCH ×2 (10:40→21:23)
[2018-11-21] MEDS: ZYVOX PO SCH ×2 (10:41→21:23)
[2018-11-21] MEDS: LANTUS SUB-Q SCH (10:41)
[2018-11-21] MEDS: HEPARIN SUB-Q SCH ×2 (10:42→21:23)
[2018-11-21] MEDS: PREVACID SOLUTAB FEEDTUBE SCH (10:42)
[2018-11-21] MEDS: NORVASC PO SCH (10:43)
--- NOTE | 2018-11-21 11:00 | Progress Note ---
Assessment and Plan Assessment and plan: Acute on chronic resp failure Cont. tracheostomycare, secretion control and airway mangement Trach to ventilator Pulmonology following Severe Sepsis with septic shock due to VRE off vasopressors Blood cultures Enterococcus Faecium 4 of 4 bottles ID Physician following Continue antibiotics per ID recommendations, Zyvox 600 mg twice a day for total of 14 day Sacral decub ulcer. consulted surgery Diabetes mellitus type 2 Fingerstick q4h Anemia s/p 2 Units PRBC stool occult blood neg Hypertension by history. Monitor History of chronic hypoxic encephalopathy Hyperlipidemia Hypernatremia Hypokalemia Replete as needed Full code status Poor prognosis. I had a long discussion with the who wants to continue full supportive and aggressive care. Surgery also appears to have a discussion with the with regards to debridement of his wound. Disposition. seeking LTAC placement The high probability of a clinically significant, sudden or life threatening deterioration of the respiratory and skin system(s) required my full and direct attention, intervention and personal management. The aggregate critical care time was [31] minutes. This time is in addition to time spent performing reported procedures but includes the following: [x] Data Review and interpretation [x] Patient assessment and monitoring of vital signs [x] Documentation [x] Medication orders and management History Interval history: Patient is 77 yo resident at [facility] with chronic resp failure s/p trach, diabetes, BPH,hypertension, chronic hypoxic encephalopatyhy. [facility] because of difficulty breathing, respiratory distress. He was seen and evaluated in ED and duagnosed with acute on chronic respiratory failure failure and hypotension. He was put on ventilator since he already had a tracheostomy. He was diagnosed with sepsis with septic shock, started on iv Abx and previously required pressors which are off now Hospitalist Physical - Constitutional Vitals: Temp Pulse Resp BP Pulse Ox 98.5 F 65 16 158/62 99 11/21/18 08:00 11/21/18 10:43 11/21/18 10:31 11/21/18 10:43 11/21/18 10:31 General appearance: Present: no acute distress, well-nourished, other (intubated on vent) - EENT Eyes: Present: PERRL, EOM intact ENT: hearing intact, clear oral mucosa, dentition normal - Neck Neck: Present: supple, normal ROM - Respiratory Respiratory effort: normal Respiratory: bilateral: CTA - Cardiovascular Rhythm: regular Heart Sounds: Present: S1 & S2. Absent: gallop, rub - Extremities Extremities: no ischemia, No edema, Full ROM - Abdominal General gastrointestinal: soft, non-tender, non-distended, normal bowel sounds - Integumentary Integumentary: Present: clear, warm, dry - Neurologic Neurologic: CNII-XII intact, moves all extremities Results - Labs CBC & Chem 7: 11/21/18 03:09 11/21/18 03:09 Labs: Laboratory Last Values WBC 7.7 K/mm3 (4.5-11.0) 11/21/18 03:09 RBC 3.05 M/mm3 (3.65-5.03) L 11/21/18 03:09 Hgb 8.5 gm/dl (11.8-15.2) L 11/21/18 03:09 Hct 26.1 % (35.5-45.6) L 11/21/18 03:09 MCV 85 fl (84-94) 11/21/18 03:09 MCH 28 pg (28-32) 11/21/18 03:09 MCHC 33 % (32-34) 11/21/18 03:09 RDW 18.7 % (13.2-15.2) H 11/21/18 03:09 Plt Count 236 K/mm3 (140-440) 11/21/18 03:09 Lymph % (Auto) 18.8 % (13.4-35.0) 11/21/18 03:09 [place] % (Auto) 12.2 % (0.0-7.3) H 11/21/18 03:09 Eos % (Auto) 3.5 % (0.0-4.3) 11/21/18 03:09 Baso % (Auto) 0.6 % (0.0-1.8) 11/21/18 03:09 Lymph # 1.4 K/mm3 (1.2-5.4) 11/21/18 03:09 [place] # 0.9 K/mm3 (0.0-0.8) H 11/21/18 03:09 Eos # 0.3 K/mm3 (0.0-0.4) 11/21/18 03:09 Baso # 0.0 K/mm3 (0.0-0.1) 11/21/18 03:09 Add Manual Diff Complete 11/13/18 14:00 Total Counted 100 11/13/18 14:00 Seg Neutrophils % 64.9 % (40.0-70.0) 11/21/18 03:09 Seg Neuts % (Manual) 87.0 % (40.0-70.0) H 11/13/18 14:00 0 % 11/13/18 14:00 5.0 % (13.4-35.0) L 11/13/18 14:00 Reactive Lymphs % (Man) 0 % 11/13/18 14:00 1.0 % (0.0-7.3) 11/13/18 14:00 7.0 % (0.0-4.3) H 11/13/18 14:00 0 % (0.0-1.8) 11/13/18 14:00 0 % 11/13/18 14:00 0 % 11/13/18 14:00 0 % 11/13/18 14:00 0 % 11/13/18 14:00 Nucleated RBC % Not Reportable 11/13/18 14:00 Seg Neutrophils # 5.0 K/mm3 (1.8-7.7) 11/21/18 03:09 Seg Neutrophils # Man 3.3 K/mm3 (1.8-7.7) 11/13/18 14:00 Band Neutrophils # 0.0 K/mm3 11/13/18 14:00 0.2 K/mm3 (1.2-5.4) L 11/13/18 14:00 Abs React Lymphs (Man) 0.0 K/mm3 11/13/18 14:00 0.0 K/mm3 (0.0-0.8) 11/13/18 14:00 0.3 K/mm3 (0.0-0.4) 11/13/18 14:00 0.0 K/mm3 (0.0-0.1) 11/13/18 14:00 0.0 K/mm3 11/13/18 14:00 0.0 K/mm3 11/13/18 14:00 0.0 K/mm3 11/13/18 14:00 Blast Cells # 0.0 K/mm3 11/13/18 14:00 WBC Morphology Not Reportable 11/13/18 14:00 Hypersegmented Neuts Not Reportable 11/13/18 14:00 Hyposegmented Neuts Not Reportable 11/13/18 14:00 Hypogranular Neuts Not Reportable 11/13/18 14:00 Not Reportable 11/13/18 14:00 Not Reportable 11/13/18 14:00 Not Reportable 11/13/18 14:00 Not Reportable 11/13/18 14:00 Not Reportable 11/13/18 14:00 Not Reportable 11/13/18 14:00 Consistent w auto 11/13/18 14:00 Not Reportable 11/13/18 14:00 Plt Clumps, EDTA Not Reportable 11/13/18 14:00 Not Reportable 11/13/18 14:00 Not Reportable 11/13/18 14:00 Not Reportable 11/13/18 14:00 Plt Morphology Comment Not Reportable 11/13/18 14:00 RBC Morphology Not Reportable 11/13/18 14:00 Dimorphic RBCs Not Reportable 11/13/18 14:00 Few 11/13/18 14:00 Not Reportable 11/13/18 14:00 Few 11/13/18 14:00 1+ 11/13/18 14:00 Not Reportable 11/13/18 14:00 Not Reportable 11/13/18 14:00 Few 11/13/18 14:00 Not Reportable 11/13/18 14:00 Not Reportable 11/13/18 14:00 Not Reportable 11/13/18 14:00 Not Reportable 11/13/18 14:00 Not Reportable 11/13/18 14:00 Not Reportable 11/13/18 14:00 Not Reportable 11/13/18 14:00 Not Reportable 11/13/18 14:00 Not Reportable 11/13/18 14:00 Not Reportable 11/13/18 14:00 Not Reportable 11/13/18 14:00 Not Reportable 11/13/18 14:00 Acanthocytes (Spur) Not Reportable 11/13/18 14:00 Rouleaux Not Reportable 11/13/18 14:00 Not Reportable 11/13/18 14:00 Not Reportable 11/13/18 14:00 Not Reportable 11/13/18 14:00 Not Reportable 11/13/18 14:00 Hem Pathologist Commnt No 11/13/18 14:00 POC ABG pH 7.463 (7.35-7.45) H 11/14/18 05:46 ABG pH 7.410 pH Units (7.350-7.450) 11/20/18 20:50 POC ABG pCO2 38.3 (35-45) 11/14/18 05:46 ABG pCO2 35.5 mm Hg 11/20/18 20:50 POC ABG pO2 136 (80-105) H 11/14/18 05:46 ABG pO2 90.8 mm Hg (80.0-90.0) H 11/20/18 20:50 POC ABG HCO3 27.4 (22-26 mml/L) 11/14/18 05:46 ABG HCO3 22.0 mmol/L (20.0-26.0) 11/20/18 20:50 POC ABG Total CO2 29 (23-27mmol/L) 11/14/18 05:46 POC ABG O2 Sat 99 11/14/18 05:46 ABG O2 Saturation 97.2 % (95.0-99.0) 11/20/18 20:50 ABG O2 Content 17.9 (0.0-44) 11/20/18 20:50 POC ABG Base Excess 4 ((-2) - (+3)mmol/L) 11/14/18 05:46 ABG Base Excess -2.1 mmol/L (-2.0-3.0) L 11/20/18 20:50 ABG Hemoglobin 13.4 gm/dl (14.0-18.0) L 11/20/18 20:50 ABG Carboxyhemoglobin 1.8 % (0.0-5.0) 11/20/18 20:50 ABG Methemoglobin 0.6 % (0.0-1.5) 11/20/18 20:50 94.9 % (95.0-99.0) L 11/20/18 20:50 25 % 11/20/18 20:50 Sodium 150 mmol/L (137-145) H 11/21/18 03:09 Potassium 3.5 mmol/L (3.6-5.0) L 11/21/18 03:09 Chloride 118.5 mmol/L (98-107) H 11/21/18 03:09 Carbon Dioxide 22 mmol/L (22-30) 11/21/18 03:09 13 mmol/L 11/21/18 03:09 BUN 22 mg/dL (9-20) H 11/21/18 03:09 0.6 mg/dL (0.8-1.5) L 11/21/18 03:09 Estimated GFR > 60 ml/min 11/21/18 03:09 37 % 11/21/18 03:09 Glucose 279 mg/dL (75-100) H 11/21/18 03:09 POC Glucose 307 (70-105) H 11/21/18 05:10 Lactic Acid 1.60 mmol/L (0.7-2.0) 11/14/18 12:50 Calcium 7.7 mg/dL (8.4-10.2) L 11/21/18 03:09 Magnesium 2.10 mg/dL (1.7-2.3) 11/15/18 12:00 0.70 mg/dL (0.1-1.2) 11/13/18 14:00 AST 154 units/L (5-40) H 11/13/18 14:00 ALT 134 units/L (7-56) H 11/13/18 14:00 586 units/L (35-129) H 11/13/18 14:00 510 units/L (55-170) H 11/13/18 14:49 CK-MB (CK-2) 4.4 ng/mL (0.0-4.0) H 11/13/18 14:49 CK-MB (CK-2) Rel Index 0.8 (0-4) 11/13/18 14:49 0.348 ng/mL (0.00-0.029) H* 11/13/18 14:49 NT-Pro-B Natriuret Pep 3679 pg/mL (0-900) H 11/13/18 14:49 6.8 g/dL (6.3-8.2) 11/13/18 14:00 1.2 g/dL (3.9-5) L 11/13/18 14:00 0.2 % 11/13/18 14:00 Triglycerides 284 mg/dL (2-149) H 11/13/18 14:49 Cholesterol 56 mg/dL (50-199) 11/13/18 14:49 4 mg/dL (50-130) L 11/13/18 14:49 7 mg/dL (40-59) L 11/13/18 14:49 8.00 % 11/13/18 14:49 Yellow (Yellow) 11/13/18 14:44 Slightly-cloudy (Clear) 11/13/18 14:44 6.0 (5.0-7.0) 11/13/18 14:44 Ur Specific [place] 1.017 (1.003-1.030) 11/13/18 14:44 30 mg/dl mg/dL (Negative) 11/13/18 14:44 Neg mg/dL (Negative) 11/13/18 14:44 Neg mg/dL (Negative) 11/13/18 14:44 Neg (Negative) 11/13/18 14:44 Neg (Negative) 11/13/18 14:44 Neg (Negative) 11/13/18 14:44 4.0 mg/dL (<2.0) 11/13/18 14:44 Ur Leukocyte Esterase Mod (Negative) 11/13/18 14:44 36.0 /HPF (0.0-6.0) H 11/13/18 14:44 21.0 /HPF (0.0-6.0) 11/13/18 14:44 1+ /HPF (Negative) 11/13/18 14:44 Few /HPF 11/13/18 14:44 3+ /HPF 11/13/18 14:44 Hepatitis A IgM Ab Non-reactive (NonReactive) 11/14/18 02:00 Hep Bs Antigen Non-reactive (Negative) 11/14/18 02:00 Hep B Core IgM Ab Non-reactive (NonReactive) 11/14/18 02:00 Non-reactive (NonReactive) 11/14/18 02:00 HIV 1&2 Antibody Rapid Non react (Non React) 11/14/18 02:00 Non react (Non React) 11/14/18 02:00 Blood Type O POSITIVE 11/13/18 14:49 Antibody Screen Negative 11/13/18 14:49 Crossmatch See Detail 11/13/18 14:49 Active Medications - Current Medications Current Medications: Generic Name Dose Route Start Last Admin Trade Name Freq PRN Reason Stop Dose Admin Albuterol 2.5 mg 11/19/18 17:21 Proventil IH Q6HRT PRN Shortness Of Breath Amlodipine Besylate 5 mg 11/20/18 13:00 11/21/18 10:43 Norvasc PO 5 mg QDAY LENCHO Administration Lipase/Protease/Amylase 1 each 11/14/18 14:20 Pancreazgenia Alas 10,500 Unit FEEDTUBE PRN PRN For Clogged Feeding Tube Heparin Sodium (Porcine) 5,000 unit 11/14/18 03:30 11/21/18 10:42 Heparin SUB-Q 5,000 unit Q12HR LENCHO Administration Hydralazine HCl 10 mg 11/20/18 12:30 11/20/18 12:26 Apresoline IV 10 mg Q4H PRN Administration Blood Pressure Norepinephrine 8 mg/ Sodium 250 mls @ 3.75 mls/hr 11/14/18 09:00 11/18/18 07:38 Chloride IV 0 mcg/min TITR LENCHO 0 mls/hr Titration Protocol 2 MCG/MIN Vasopressin 20 unit/ Sodium 101 mls @ 9.09 mls/hr 11/14/18 09:00 11/15/18 04:05 Chloride IV 0 units/min TITR LENCHO 0 mls/hr Titration Protocol 0.03 UNITS/MIN Insulin Glargine 10 units 11/20/18 12:56 11/21/18 10:41 Lantus SUB-Q 10 units DAILY LENCHO Administration Insulin Human Lispro 0 unit 11/14/18 06:00 11/21/18 05:45 Humalog SUB-Q 6 unit Q6HR LENCHO Administration Protocol Lansoprazole 30 mg 11/16/18 10:00 11/21/18 10:42 Prevacid Solutab FEEDTUBE 30 mg QDAY LENCHO Administration Linezolid 600 mg 11/19/18 10:00 11/21/18 10:41 Zyvox PO 600 mg BID LENCHO Administration Scopolamine 1 each 11/19/18 15:00 11/19/18 15:51 Transderm-Scop TD 1 each Q3D LENCHO Administration Simple Syrup 15 ml 11/14/18 14:20 Simple Syrup FEEDTUBE PRN PRN Hypoglycemia Simple Syrup 30 ml 11/14/18 14:20 Simple Syrup FEEDTUBE PRN PRN Hypoglycemia Sodium Bicarbonate 325 mg 11/14/18 14:20 Sodium Bicarbonate FEEDTUBE PRN PRN For Clogged Feeding Tube Sodium Hypochlorite 1 applic 11/16/18 13:00 11/21/18 10:40 Dakin's Half Strength TP 1 applicatio BID LENCHO Administration Nutrition/Malnutrition Assess - Dietary Evaluation Nutrition/Malnutrition Findings: Nutrition Notes Start: 11/14/18 10:33 Freq: Status: Active Protocol: Document 11/20/18 11:55 LM (Rec: 11/20/18 12:03 LM [id number]) Nutrition Notes Initial or Follow up Reassessment Current Diagnosis Acute Kidney Injury,Decubitus( Pressure Ulcer),Diabetes, Sepsis,Hypertension,Heart Failure,Respiratory Failure, Stroke Other Pertinent Diagnosis sacral wound, UTI, Dysphagia, Chronic encephalopathy Current Diet Vital AF 1.2 at 60 ml/hr Labs/Tests NA 148 Cr 0.6 BUN 24 BG 238 Pertinent Medications Humalog Height 5 ft 9 in Weight 84 kg Harper Body Weight (kg) 72.72 BMI 27.3 Subjective/Other Information TF running at 60 ml/hr. Pt tolerating TF. Percent of energy/protein needs met: 93%/100% Burn Absent Trauma Absent #1 Nutrition Diagnosis Inadequate oral intake Diagnosis Progress(for reassessment Continues documentation) Is patient on ventilator? Yes Is Patient Ambulatory and/or Out of Bed No REE-([facility]-confined to bed) [phone] Calculation Used for Recommendations [facility] Additional Notes Pro needs 1.2-2g/k-168g/ day Fluid needs 1ml/kcal Nutrition Intervention Change Diet Order: Continue TF Nutrition Support: Vital AF 1.2 at 60ml/hr with 100ml water flush q4h. Kcal 1,728 Protein (gm) 108 Carbohydrates (gm) 159 Fat (gm) 78 Fluid (mL) 1,168 Fiber (gm) 7 Goal #1 TF tolerance Goal #2 TF to meet at least 75% of energy and protein needs Anticipated Discharge Needs: Continue TF Follow-Up By: 11/24/18 Additional Comments F/U for TF tolerance and rate
[2018-11-22 05:34] LABS: ABG Base Excess -1.3 mmol/L (-2.0-3.0); ABG HCO3 23.4 mmol/L (20.0-26.0); ABG Methemoglobin 0.5 % (0.0-1.5); ABG Oxygen Saturation 97.4 % (95.0-99.0); ABG PCO2 38.8 mm Hg; ABG PH 7.398 pH Units (7.350-7.450); ABG PO2 94.6 mm Hg (80.0-90.0)
[2018-11-22 06:32] LABS: Basophils % (Auto) 0.4 % (0.0-1.8); Eosinophils # (Auto) 0.3 K/mm3 (0.0-0.4); Eosinophils % (Auto) 4.4 % (0.0-4.3); Hematocrit 25.2 % (35.5-45.6); Hemoglobin 8.1 gm/dl (11.8-15.2); Lymphocytes # (Auto) 1.6 K/mm3 (1.2-5.4); Lymphocytes % (Auto) 20.2 % (13.4-35.0); Mean Corpuscular HGB Conc 32 % (32-34); Mean Corpuscular Volume 86 fl (84-94); Monocytes # (Auto) 0.9 K/mm3 (0.0-0.8); Monocytes % (Auto) 10.9 % (0.0-7.3); Platelet Count 205 K/mm3 (140-440); Red Blood Count 2.93 M/mm3 (3.65-5.03); Red Cell Distribution Width 18.6 % (13.2-15.2)
[2018-11-22] MEDS: HumaLOG SUB-Q SCH ×4 (06:37→23:54)
[2018-11-22 06:56] LABS: BUN/Creatinine Ratio 42; Blood Urea Nitrogen 21 mg/dL (9-20); Calcium 7.7 mg/dL (8.4-10.2); Hemolysis Index 1
[2018-11-22] MEDS: NORVASC PO SCH (10:08)
[2018-11-22] MEDS: PREVACID SOLUTAB FEEDTUBE SCH (10:09)
[2018-11-22] MEDS: HEPARIN SUB-Q SCH ×2 (10:10→21:01)
[2018-11-22] MEDS: LANTUS SUB-Q SCH (10:10)
[2018-11-22] MEDS: ZYVOX PO SCH ×2 (10:11→21:01)
[2018-11-22] MEDS: DAKIN'S HALF STRENGTH TP SCH ×2 (10:14→21:03)
--- NOTE | 2018-11-22 10:29 | Progress Note ---
Assessment and Plan Assessment and plan: Acute on chronic resp failure Cont. tracheostomy care, secretion control and airway mangement Pulmonology following Severe Sepsis with septic shock due to VRE off vasopressors Blood cultures Enterococcus Faecium 4 of 4 bottles ID Physician following Continue antibiotics per ID recommendations, Zyvox 600 mg twice a day for total of 14 day Sacral decub ulcer. Appreciate general surgery recommendations. Diabetes mellitus type 2 Fingerstick q4h Anemia s/p 2 Units PRBC stool occult blood neg Hypertension by history. Monitor History of chronic hypoxic encephalopathy Hyperlipidemia Hypernatremia Hypokalemia Replete as needed Full code status Poor prognosis. I had a long discussion with the who wants to continue full supportive and aggressive care. Surgery also had a discussion with the with regards to debridement of his wound. Disposition. seeking LTAC placement The high probability of a clinically significant, sudden or life threatening deterioration of the respiratory and immunologic system(s) required my full and direct attention, intervention and personal management. The aggregate critical care time was [33] minutes. This time is in addition to time spent performing reported procedures but includes the following: [x] Data Review and interpretation [x] Patient assessment and monitoring of vital signs [x] Documentation [x] Medication orders and management History Interval history: Patient is 77 yo resident at [facility] with chronic resp failure s/p trach, diabetes, BPH,hypertension, chronic hypoxic encephalopatyhy. He was sent to ED from intermediate facility because of difficulty breathing, respiratory distress. He was seen and evaluated in ED and duagnosed with acute on chronic respiratory failure failure and hypotension. He was put on ventilator since he already had a tracheostomy. He was diagnosed with sepsis with septic shock, started on iv Abx and previously required pressors which are off now Hospitalist Physical - Constitutional Vitals: Temp Pulse Resp BP Pulse Ox 97.4 F L 81 13 168/68 99 11/22/18 08:00 11/22/18 10:08 11/22/18 09:40 11/22/18 10:08 11/22/18 09:40 General appearance: Present: no acute distress, well-nourished, other (intubated on vent) - EENT Eyes: Present: PERRL, EOM intact ENT: hearing intact, clear oral mucosa, dentition normal - Neck Neck: Present: supple, normal ROM - Respiratory Respiratory effort: normal Respiratory: bilateral: CTA - Cardiovascular Rhythm: regular Heart Sounds: Present: S1 & S2. Absent: gallop, rub - Extremities Extremities: no ischemia, No edema, Full ROM - Abdominal General gastrointestinal: soft, non-tender, non-distended, normal bowel sounds - Integumentary Integumentary: Present: clear, warm, dry - Neurologic Neurologic: CNII-XII intact, moves all extremities Results - Labs CBC & Chem 7: 11/22/18 06:10 11/22/18 06:10 Labs: Laboratory Last Values WBC 7.9 K/mm3 (4.5-11.0) 11/22/18 06:10 RBC 2.93 M/mm3 (3.65-5.03) L 11/22/18 06:10 Hgb 8.1 gm/dl (11.8-15.2) L 11/22/18 06:10 Hct 25.2 % (35.5-45.6) L 11/22/18 06:10 MCV 86 fl (84-94) 11/22/18 06:10 MCH 28 pg (28-32) 11/22/18 06:10 MCHC 32 % (32-34) 11/22/18 06:10 RDW 18.6 % (13.2-15.2) H 11/22/18 06:10 Plt Count 205 K/mm3 (140-440) 11/22/18 06:10 Lymph % (Auto) 20.2 % (13.4-35.0) 11/22/18 06:10 [place] % (Auto) 10.9 % (0.0-7.3) H 11/22/18 06:10 Eos % (Auto) 4.4 % (0.0-4.3) H 11/22/18 06:10 Baso % (Auto) 0.4 % (0.0-1.8) 11/22/18 06:10 Lymph # 1.6 K/mm3 (1.2-5.4) 11/22/18 06:10 [place] # 0.9 K/mm3 (0.0-0.8) H 11/22/18 06:10 Eos # 0.3 K/mm3 (0.0-0.4) 11/22/18 06:10 Baso # 0.0 K/mm3 (0.0-0.1) 11/22/18 06:10 Add Manual Diff Complete 11/13/18 14:00 Total Counted 100 11/13/18 14:00 Seg Neutrophils % 64.1 % (40.0-70.0) 11/22/18 06:10 Seg Neuts % (Manual) 87.0 % (40.0-70.0) H 11/13/18 14:00 0 % 11/13/18 14:00 5.0 % (13.4-35.0) L 11/13/18 14:00 Reactive Lymphs % (Man) 0 % 11/13/18 14:00 1.0 % (0.0-7.3) 11/13/18 14:00 7.0 % (0.0-4.3) H 11/13/18 14:00 0 % (0.0-1.8) 11/13/18 14:00 0 % 11/13/18 14:00 0 % 11/13/18 14:00 0 % 11/13/18 14:00 0 % 11/13/18 14:00 Nucleated RBC % Not Reportable 11/13/18 14:00 Seg Neutrophils # 5.0 K/mm3 (1.8-7.7) 11/22/18 06:10 Seg Neutrophils # Man 3.3 K/mm3 (1.8-7.7) 11/13/18 14:00 Band Neutrophils # 0.0 K/mm3 11/13/18 14:00 0.2 K/mm3 (1.2-5.4) L 11/13/18 14:00 Abs React Lymphs (Man) 0.0 K/mm3 11/13/18 14:00 0.0 K/mm3 (0.0-0.8) 11/13/18 14:00 0.3 K/mm3 (0.0-0.4) 11/13/18 14:00 0.0 K/mm3 (0.0-0.1) 11/13/18 14:00 0.0 K/mm3 11/13/18 14:00 0.0 K/mm3 11/13/18 14:00 0.0 K/mm3 11/13/18 14:00 Blast Cells # 0.0 K/mm3 11/13/18 14:00 WBC Morphology Not Reportable 11/13/18 14:00 Hypersegmented Neuts Not Reportable 11/13/18 14:00 Hyposegmented Neuts Not Reportable 11/13/18 14:00 Hypogranular Neuts Not Reportable 11/13/18 14:00 Not Reportable 11/13/18 14:00 Not Reportable 11/13/18 14:00 Not Reportable 11/13/18 14:00 Not Reportable 11/13/18 14:00 Not Reportable 11/13/18 14:00 Not Reportable 11/13/18 14:00 Consistent w auto 11/13/18 14:00 Not Reportable 11/13/18 14:00 Plt Clumps, EDTA Not Reportable 11/13/18 14:00 Not Reportable 11/13/18 14:00 Not Reportable 11/13/18 14:00 Not Reportable 11/13/18 14:00 Plt Morphology Comment Not Reportable 11/13/18 14:00 RBC Morphology Not Reportable 11/13/18 14:00 Dimorphic RBCs Not Reportable 11/13/18 14:00 Few 11/13/18 14:00 Not Reportable 11/13/18 14:00 Few 11/13/18 14:00 1+ 11/13/18 14:00 Not Reportable 11/13/18 14:00 Not Reportable 11/13/18 14:00 Few 11/13/18 14:00 Not Reportable 11/13/18 14:00 Not Reportable 11/13/18 14:00 Not Reportable 11/13/18 14:00 Not Reportable 11/13/18 14:00 Not Reportable 11/13/18 14:00 Not Reportable 11/13/18 14:00 Not Reportable 11/13/18 14:00 Not Reportable 11/13/18 14:00 Not Reportable 11/13/18 14:00 Not Reportable 11/13/18 14:00 Not Reportable 11/13/18 14:00 Not Reportable 11/13/18 14:00 Acanthocytes (Spur) Not Reportable 11/13/18 14:00 Rouleaux Not Reportable 11/13/18 14:00 Not Reportable 11/13/18 14:00 Not Reportable 11/13/18 14:00 Not Reportable 11/13/18 14:00 Not Reportable 11/13/18 14:00 Hem Pathologist Commnt No 11/13/18 14:00 POC ABG pH 7.463 (7.35-7.45) H 11/14/18 05:46 ABG pH 7.398 pH Units (7.350-7.450) 11/22/18 03:50 POC ABG pCO2 38.3 (35-45) 11/14/18 05:46 ABG pCO2 38.8 mm Hg 11/22/18 03:50 POC ABG pO2 136 (80-105) H 11/14/18 05:46 ABG pO2 94.6 mm Hg (80.0-90.0) H 11/22/18 03:50 POC ABG HCO3 27.4 (22-26 mml/L) 11/14/18 05:46 ABG HCO3 23.4 mmol/L (20.0-26.0) 11/22/18 03:50 POC ABG Total CO2 29 (23-27mmol/L) 11/14/18 05:46 POC ABG O2 Sat 99 11/14/18 05:46 ABG O2 Saturation 97.4 % (95.0-99.0) 11/22/18 03:50 ABG O2 Content 8.8 (0.0-44) 11/22/18 03:50 POC ABG Base Excess 4 ((-2) - (+3)mmol/L) 11/14/18 05:46 ABG Base Excess -1.3 mmol/L (-2.0-3.0) 11/22/18 03:50 ABG Hemoglobin 6.5 gm/dl (14.0-18.0) L 11/22/18 03:50 ABG Carboxyhemoglobin 1.9 % (0.0-5.0) 11/22/18 03:50 ABG Methemoglobin 0.5 % (0.0-1.5) 11/22/18 03:50 95.1 % (95.0-99.0) 11/22/18 03:50 25 % 11/22/18 03:50 Sodium 146 mmol/L (137-145) H 11/22/18 06:10 Potassium 3.3 mmol/L (3.6-5.0) L 11/22/18 06:10 Chloride 114.8 mmol/L (98-107) H 11/22/18 06:10 Carbon Dioxide 22 mmol/L (22-30) 11/22/18 06:10 13 mmol/L 11/22/18 06:10 BUN 21 mg/dL (9-20) H 11/22/18 06:10 0.5 mg/dL (0.8-1.5) L 11/22/18 06:10 Estimated GFR > 60 ml/min 11/22/18 06:10 42 % 11/22/18 06:10 Glucose 214 mg/dL (75-100) H 11/22/18 06:10 POC Glucose 227 (70-105) H 11/22/18 05:43 Lactic Acid 1.60 mmol/L (0.7-2.0) 11/14/18 12:50 Calcium 7.7 mg/dL (8.4-10.2) L 11/22/18 06:10 Magnesium 2.10 mg/dL (1.7-2.3) 11/15/18 12:00 0.70 mg/dL (0.1-1.2) 11/13/18 14:00 AST 154 units/L (5-40) H 11/13/18 14:00 ALT 134 units/L (7-56) H 11/13/18 14:00 586 units/L (35-129) H 11/13/18 14:00 510 units/L (55-170) H 11/13/18 14:49 CK-MB (CK-2) 4.4 ng/mL (0.0-4.0) H 11/13/18 14:49 CK-MB (CK-2) Rel Index 0.8 (0-4) 11/13/18 14:49 0.348 ng/mL (0.00-0.029) H* 11/13/18 14:49 NT-Pro-B Natriuret Pep 3679 pg/mL (0-900) H 11/13/18 14:49 6.8 g/dL (6.3-8.2) 11/13/18 14:00 1.2 g/dL (3.9-5) L 11/13/18 14:00 0.2 % 11/13/18 14:00 Triglycerides 284 mg/dL (2-149) H 11/13/18 14:49 Cholesterol 56 mg/dL (50-199) 11/13/18 14:49 4 mg/dL (50-130) L 11/13/18 14:49 7 mg/dL (40-59) L 11/13/18 14:49 8.00 % 11/13/18 14:49 Yellow (Yellow) 11/13/18 14:44 Slightly-cloudy (Clear) 11/13/18 14:44 6.0 (5.0-7.0) 11/13/18 14:44 Ur Specific [place] 1.017 (1.003-1.030) 11/13/18 14:44 30 mg/dl mg/dL (Negative) 11/13/18 14:44 Neg mg/dL (Negative) 11/13/18 14:44 Neg mg/dL (Negative) 11/13/18 14:44 Neg (Negative) 11/13/18 14:44 Neg (Negative) 11/13/18 14:44 Neg (Negative) 11/13/18 14:44 4.0 mg/dL (<2.0) 11/13/18 14:44 Ur Leukocyte Esterase Mod (Negative) 11/13/18 14:44 36.0 /HPF (0.0-6.0) H 11/13/18 14:44 21.0 /HPF (0.0-6.0) 11/13/18 14:44 1+ /HPF (Negative) 11/13/18 14:44 Few /HPF 11/13/18 14:44 3+ /HPF 11/13/18 14:44 Hepatitis A IgM Ab Non-reactive (NonReactive) 11/14/18 02:00 Hep Bs Antigen Non-reactive (Negative) 11/14/18 02:00 Hep B Core IgM Ab Non-reactive (NonReactive) 11/14/18 02:00 Non-reactive (NonReactive) 11/14/18 02:00 HIV 1&2 Antibody Rapid Non react (Non React) 11/14/18 02:00 Non react (Non React) 11/14/18 02:00 Blood Type O POSITIVE 11/13/18 14:49 Antibody Screen Negative 11/13/18 14:49 Crossmatch See Detail 11/13/18 14:49 Active Medications - Current Medications Current Medications: Generic Name Dose Route Start Last Admin Trade Name Freq PRN Reason Stop Dose Admin Albuterol 2.5 mg 11/19/18 17:21 Proventil IH Q6HRT PRN Shortness Of Breath Amlodipine Besylate 5 mg 11/20/18 13:00 11/22/18 10:08 Norvasc PO 5 mg QDAY LENCHO Administration Lipase/Protease/Amylase 1 each 11/14/18 14:20 Pancreaze 10,500 Unit FEEDTUBE PRN PRN For Clogged Feeding Tube Heparin Sodium (Porcine) 5,000 unit 11/14/18 03:30 11/22/18 10:10 Heparin SUB-Q 5,000 unit Q12HR LENCHO Administration Hydralazine HCl 10 mg 11/20/18 12:30 11/20/18 12:26 Apresoline IV 10 mg Q4H PRN Administration Blood Pressure Norepinephrine 8 mg/ Sodium 250 mls @ 3.75 mls/hr 11/14/18 09:00 11/18/18 07:38 Chloride IV 0 mcg/min TITR LENCHO 0 mls/hr Titration Protocol 2 MCG/MIN Vasopressin 20 unit/ Sodium 101 mls @ 9.09 mls/hr 11/14/18 09:00 11/15/18 04:05 Chloride IV 0 units/min TITR LENCHO 0 mls/hr Titration Protocol 0.03 UNITS/MIN Insulin Glargine 10 units 11/20/18 12:56 11/22/18 10:10 Lantus SUB-Q 10 units DAILY LENCHO Administration Insulin Human Lispro 0 unit 11/14/18 06:00 11/22/18 06:37 Humalog SUB-Q 3 unit Q6HR LENCHO Administration Protocol Lansoprazole 30 mg 11/16/18 10:00 11/22/18 10:09 Prevacid Solutab FEEDTUBE 30 mg QDAY LENCHO Administration Linezolid 600 mg 11/19/18 10:00 11/22/18 10:11 Zyvox PO 600 mg BID LENCHO Administration Scopolamine 1 each 11/19/18 15:00 11/19/18 15:51 Transderm-Scop TD 1 each Q3D LENCHO Administration Simple Syrup 15 ml 11/14/18 14:20 Simple Syrup FEEDTUBE PRN PRN Hypoglycemia Simple Syrup 30 ml 11/14/18 14:20 Simple Syrup FEEDTUBE PRN PRN Hypoglycemia Sodium Bicarbonate 325 mg 11/14/18 14:20 Sodium Bicarbonate FEEDTUBE PRN PRN For Clogged Feeding Tube Sodium Hypochlorite 1 applic 11/16/18 13:00 11/22/18 10:14 Dakin's Half Strength TP 1 applicatio BID LENCHO Administration Nutrition/Malnutrition Assess - Dietary Evaluation Nutrition/Malnutrition Findings: Nutrition Notes Start: 11/14/18 10:33 Freq: Status: Active Protocol: Document 11/20/18 11:55 LM (Rec: 11/20/18 12:03 LM [id number]) Nutrition Notes Initial or Follow up Reassessment Current Diagnosis Acute Kidney Injury,Decubitus( Pressure Ulcer),Diabetes, Sepsis,Hypertension,Heart Failure,Respiratory Failure, Stroke Other Pertinent Diagnosis sacral wound, UTI, Dysphagia, Chronic encephalopathy Current Diet Vital AF 1.2 at 60 ml/hr Labs/Tests NA 148 Cr 0.6 BUN 24 BG 238 Pertinent Medications Humalog Height 5 ft 9 in Weight 84 kg [place] Body Weight (kg) 72.72 BMI 27.3 Subjective/Other Information TF running at 60 ml/hr. Pt tolerating TF. Percent of energy/protein needs met: 93%/100% Burn Absent Trauma Absent #1 Nutrition Diagnosis Inadequate oral intake Diagnosis Progress(for reassessment Continues documentation) Is patient on ventilator? Yes Is Patient Ambulatory and/or Out of Bed No REE-([facility]-confined to bed) [phone] Calculation Used for Recommendations [facility] Additional Notes Pro needs 1.2-2g/k-168g/ day Fluid needs 1ml/kcal Nutrition Intervention Change Diet Order: Continue TF Nutrition Support: Vital AF 1.2 at 60ml/hr with 100ml water flush q4h. Kcal 1,728 Protein (gm) 108 Carbohydrates (gm) 159 Fat (gm) 78 Fluid (mL) 1,168 Fiber (gm) 7 Goal #1 TF tolerance Goal #2 TF to meet at least 75% of energy and protein needs Anticipated Discharge Needs: Continue TF Follow-Up By: 11/24/18 Additional Comments F/U for TF tolerance and rate
--- NOTE | 2018-11-22 13:30 | Progress Note ---
Assessment and Plan Cultures: 11/13 BCx - VRE 11/13 UCx - >100k mixed kole 11/13 Sputum Cx - not run due to contamination 11/16/2018 Blood culture: no growth thus far A/P: 77 yo M PMHx CVA, seizures, HTN, DM2 admitted for worsenign respiratory status. 1. Septic shock secondary to VRE bacteremia: Off pressors. Source: urine v/s large sacral decubitus ulcer. TTE poor windows, if repeat blood cultures remain negative, would not recommend GLORIA since overall prognosis remains extremely poor and he is not going to be a candidate for any valve surgeries. Repeat blood cultures are negative. 2. Acute on chronic respiratory failure - CXR with congestion, no focal infiltrate to suggest pneumonia. VRE / Enterococcus rarely causes pneumonia. 3. UTI - Urine cultures with mixed kole. >100 CFU, probably cause of Enterococcal bacteremia. 4. Large sacral decubitus ulcer, infected, with eschar: could be the source of the VRE bacteremia. Appreciate General Surgery recommendations. Agree that prognosis is extremely poor. Noted plans for surgical debridement based on discussion with in spite of no hope for cure. 5. DM-2 6. Hx of CVA: s/p trach and PEG. 7. Elevated LFTs: probably from sepsis. RUQ US showed collapsed GB, no gallstones, trace ascites and hepatic steatosis. Recs: - continue PO Linezolid 600 mg BID. Today is Day 7 of 14 day therapy. Prolonged abx are going to be futile. - monitor platelets while on linezolid - noted plans for debridement of the wound - continue wound care and contact isolation - overall prognosis remains extremely poor Dr. Noonan taking over tomorrow. Tiara Corcoran MD, FACP [facility] M: [phone] O: [phone] F: [phone] Subjective Date of service: 11/22/18 Principal diagnosis: Severe sepsis with shock; Ac and ch resp failur; Metabolic encephalopathy Interval history: No fever. Remains unresponsive, on T-piece. Objective - Exam Narrative Exam: Physical Exam: Constitutional: unresponsive, on t-piece Head, Ears, Nose: Normocephalic, atraumatic. External ears, nose normal Eyes: Conjunctivae/corneas clear. No icterus. No ptosis. Neck: trach + Oral: unable to examine Cardiovascular: S1, S2 normal. Respiratory: Good air entry, clear to auscultation bilaterally GI: Soft, PEG +; bowel sounds +, rectal tube + Musculoskeletal: 2+ pedal edema +, no cyanosis. Skin: Large sacral decubitus with eschar with dressing + Hem/Lymphatic: No palpable cervical or supraclavicular nodes. No lymphangitis Psych: no agitation Neurological: unresponsive, t-piece - Constitutional Vitals: Vital Signs Temp Pulse Resp BP Pulse Ox 97.9 F 86 15 154/70 99 11/22/18 12:00 11/22/18 13:00 11/22/18 13:00 11/22/18 13:00 11/22/18 13:00 Temperature -Last 24 Hours Temperature 97.9 F Temperature 97.4 F Temperature 98.8 F Temperature 98.3 F Temperature 97.6 F Temperature 97.8 F - Labs CBC & Chem 7: 11/22/18 06:10 11/22/18 06:10 Labs: Abnormal lab results 11/21/18 11/21/18 11/22/18 Range/Units 17:23 23:20 03:50 RBC (3.65-5.03) M/mm3 Hgb (11.8-15.2) gm/dl Hct (35.5-45.6) % RDW (13.2-15.2) % [place] % (Auto) (0.0-7.3) % Eos % (Auto) (0.0-4.3) % [place] # (0.0-0.8) K/mm3 ABG pO2 94.6 H (80.0-90.0) mm Hg ABG Hemoglobin 6.5 L (14.0-18.0) gm/dl Sodium (137-145) mmol/L Potassium (3.6-5.0) mmol/L Chloride (98-107) mmol/L BUN (9-20) mg/dL Creatinine (0.8-1.5) mg/dL Glucose (75-100) mg/dL POC Glucose 288 H 254 H (70-105) Calcium (8.4-10.2) mg/dL 11/22/18 11/22/18 11/22/18 Range/Units 05:43 06:10 06:10 RBC 2.93 L (3.65-5.03) M/mm3 Hgb 8.1 L (11.8-15.2) gm/dl Hct 25.2 L (35.5-45.6) % RDW 18.6 H (13.2-15.2) % [place] % (Auto) 10.9 H (0.0-7.3) % Eos % (Auto) 4.4 H (0.0-4.3) % [place] # 0.9 H (0.0-0.8) K/mm3 ABG pO2 (80.0-90.0) mm Hg ABG Hemoglobin (14.0-18.0) gm/dl Sodium 146 H (137-145) mmol/L Potassium 3.3 L (3.6-5.0) mmol/L Chloride 114.8 H (98-107) mmol/L BUN 21 H (9-20) mg/dL Creatinine 0.5 L (0.8-1.5) mg/dL Glucose 214 H (75-100) mg/dL POC Glucose 227 H (70-105) Calcium 7.7 L (8.4-10.2) mg/dL 11/22/18 Range/Units 11:35 RBC (3.65-5.03) M/mm3 Hgb (11.8-15.2) gm/dl Hct (35.5-45.6) % RDW (13.2-15.2) % [place] % (Auto) (0.0-7.3) % Eos % (Auto) (0.0-4.3) % [place] # (0.0-0.8) K/mm3 ABG pO2 (80.0-90.0) mm Hg ABG Hemoglobin (14.0-18.0) gm/dl Sodium (137-145) mmol/L Potassium (3.6-5.0) mmol/L Chloride (98-107) mmol/L BUN (9-20) mg/dL Creatinine (0.8-1.5) mg/dL Glucose (75-100) mg/dL POC Glucose 262 H (70-105) Calcium (8.4-10.2) mg/dL
[2018-11-22] MEDS ORDERED: POTASSIUM CHLORIDE FEEDTUBE ONE (14:00)
--- NOTE | 2018-11-22 14:14 | Progress Note ---
Assessment and Plan Acute on chronic hypoxemic respiratory failure on MVS Severe sepsis with shock, off vasopressors VRE bacteremia UTI Large sacaral decubitus ulcer Acute on chronic metabolic encephalopathy Orophargyngeal dysphagia s/p PEG h/o CVAs Transaminitis probably secondary to hypotension Type 2 DM Hypernatremia Hypokalemia - place on t-piece as tolerated but rest overnight on MVS - shoot for RTC t-piece as tolerated from tomorrow - get ABG at 9-10pm tommorrow if tolerates t-piece to assess ventilation - continue hydralazine 10 mg IV q4h prn SBP >/= 170 mmHg - continue amlodipine 5 mg p.o. daily - continue Lantus 10 units SQ daily - repeat CXR prn at this time - continue scopolamine patch for secretion control - VAP bundle addressed - Trach care, airway clearance and secretion management - Lung protective strategies - Accuchecks with glycemic control, continue with insulin infusion per protocol - Douglass catheter for accurate intake and output monitoring in this critically ill patient with history of chronic douglass/urinary retention - Avoid nephrotoxins - VTE prophylaxis - Stress ulcer prophylaxis - Antibiotics per ID, de-escalate as indicated - Mobility and off loading for sacral decubitus - Wound care - Free water flushes and hypotonic solutions for hypernatremia - Optimize nutrition to help promote wound healing - Supportive transfusions as indicated, to keep HgB>7g/dL - Vasopressor support as indicated for MAP<65, with blood pressure unresponsive to volume resuscitation - Continue to monitor hemodynamics closely - Keep Potassium at 4, to optimize respiratory muscle function - LTAC evaluation is appropriate ... re-evaluate in am & prn General surgery consult notes reviewed- poor candidate for wound debridement, poor chances of wound healing. Awaiting family decisions re goals of care CONDITION: CRITICAL PROGNOSIS; POOR CODE STATUS: FULL Discussed care plan with RT and RN. Discussed during ICU-IDT rounds Goals of care need to be re-addressed with family The high probability of a clinically significant, sudden or life threatening deterioration of the respiratory, cardiovascular,endocrine, system(s) required my full and direct attention, intervention and personal management. The aggregate critical care time was [34] minutes. This time is in addition to time spent performing reported procedures but includes the following: [x] Data Review and interpretation [x]Patient assessment and monitoring of vital signs [x] Documentation [x] Medication orders and management Subjective Date of service: 11/22/18 Principal diagnosis: Severe sepsis with shock; Ac and ch resp failure; Metabolic encephalopathy Interval history: Patient is seen today for: Severe sepsis with septic shock; Acute and chronic respiratory failure on MVS; Acute and chronic metabolic encephalopathy; Seen and examined at bedside; 24hour events reviewed; nursing and respiratory care staff consulted; resting peacefully in bed; on PSV and about to go to t- piece; AMS is persistent; not in room; no emesis or overt aspiration Objective Vital Signs - 12hr 11/22/18 11/22/18 11/22/18 02:31 03:01 03:31 Temperature Pulse Rate 63 74 71 Pulse Rate [ From Monitor] Respiratory 13 17 16 Rate Blood Pressure 155/63 163/71 150/58 O2 Sat by Pulse 100 98 98 Oximetry O2 Sat by Pulse Oximetry [ Assessment] 11/22/18 11/22/18 11/22/18 04:00 04:01 04:31 Temperature 98.8 F Pulse Rate 63 66 60 Pulse Rate [ 66 From Monitor] Respiratory 16 16 16 Rate Blood Pressure 157/67 164/71 O2 Sat by Pulse 98 98 99 Oximetry O2 Sat by Pulse Oximetry [ Assessment] 11/22/18 11/22/18 11/22/18 05:00 05:01 05:31 Temperature Pulse Rate 59 L 59 L Pulse Rate [ From Monitor] Respiratory 20 12 Rate Blood Pressure 157/67 142/64 O2 Sat by Pulse 100 100 Oximetry O2 Sat by Pulse 100 Oximetry [ Assessment] 11/22/18 11/22/18 11/22/18 05:38 06:01 06:31 Temperature Pulse Rate 60 60 60 Pulse Rate [ From Monitor] Respiratory 15 18 Rate Blood Pressure 142/64 156/67 154/63 O2 Sat by Pulse 100 99 100 Oximetry O2 Sat by Pulse Oximetry [ Assessment] 11/22/18 11/22/18 11/22/18 07:01 07:31 08:00 Temperature 97.4 F L Pulse Rate 60 61 69 Pulse Rate [ From Monitor] Respiratory 17 15 Rate Blood Pressure 164/63 143/67 O2 Sat by Pulse 99 100 100 Oximetry O2 Sat by Pulse Oximetry [ Assessment] 11/22/18 11/22/18 11/22/18 08:01 08:17 08:31 Temperature Pulse Rate 63 74 74 Pulse Rate [ From Monitor] Respiratory 18 21 Rate Blood Pressure 143/67 162/72 176/67 O2 Sat by Pulse 99 100 97 Oximetry O2 Sat by Pulse 100 Oximetry [ Assessment] 11/22/18 11/22/18 11/22/18 08:33 09:01 09:31 Temperature Pulse Rate 75 72 72 Pulse Rate [ From Monitor] Respiratory 20 18 18 Rate Blood Pressure 176/67 160/63 156/65 O2 Sat by Pulse 100 99 99 Oximetry O2 Sat by Pulse Oximetry [ Assessment] 11/22/18 11/22/18 11/22/18 09:40 10:01 10:08 Temperature Pulse Rate 79 78 81 Pulse Rate [ From Monitor] Respiratory 13 11 L Rate Blood Pressure 156/65 168/68 168/68 O2 Sat by Pulse 99 97 Oximetry O2 Sat by Pulse Oximetry [ Assessment] 11/22/18 11/22/18 11/22/18 10:31 11:01 11:31 Temperature Pulse Rate 83 84 83 Pulse Rate [ From Monitor] Respiratory 11 L 14 15 Rate Blood Pressure 159/75 153/66 162/72 O2 Sat by Pulse 96 98 98 Oximetry O2 Sat by Pulse Oximetry [ Assessment] 11/22/18 11/22/18 11/22/18 11:58 12:00 12:01 Temperature 97.9 F Pulse Rate 84 84 Pulse Rate [ From Monitor] Respiratory 13 12 Rate Blood Pressure 153/66 153/66 O2 Sat by Pulse 100 99 98 Oximetry O2 Sat by Pulse Oximetry [ Assessment] 11/22/18 11/22/18 12:31 13:00 Temperature Pulse Rate 83 86 Pulse Rate [ From Monitor] Respiratory 13 15 Rate Blood Pressure 150/67 154/70 O2 Sat by Pulse 99 99 Oximetry O2 Sat by Pulse Oximetry [ Assessment] Constitutional: no acute distress, other (elderly looking AAM on MVS; trach in place; no patient-ventilator dys-synchrony) Eyes: non-icteric ENT: oropharynx moist Neck: supple, no lymphadenopathy, no JVD, other (midline trach) Effort: mildly labored Ascultation: Bilateral: diminished breath sounds, rales Percussion: Bilateral: not dull Cardiovascular: regular rate and rhythm, other (S1,S2) Gastrointestinal: normoactive bowel sounds, soft, non-distended, other (PEG in place, chronic douglass catheter) Integumentary: decubitus ulcer (see wound care notes) Extremities: no cyanosis, pink and warm, pulses normal, edema (2+) Neurologic: unable to assess (on vent), other (encephalopathic, unresponsive) Psychiatric: other (unable to assess) CBC and BMP: 11/23/18 06:48 11/23/18 06:48 ABG, PT/INR, D-dimer: ABG POC ABG pH 7.463 (7.35-7.45) H 11/14/18 05:46 ABG pH 7.398 pH Units (7.350-7.450) 11/22/18 03:50 POC ABG pCO2 38.3 (35-45) 11/14/18 05:46 ABG pCO2 38.8 mm Hg 11/22/18 03:50 POC ABG pO2 136 (80-105) H 11/14/18 05:46 ABG pO2 94.6 mm Hg (80.0-90.0) H 11/22/18 03:50 POC ABG HCO3 27.4 (22-26 mml/L) 11/14/18 05:46 POC ABG Total CO2 29 (23-27mmol/L) 11/14/18 05:46 POC ABG O2 Sat 99 11/14/18 05:46 ABG O2 Saturation 97.4 % (95.0-99.0) 11/22/18 03:50 Abnormal lab findings: Abnormal Labs 11/13/18 11/13/18 11/13/18 03:30 14:00 14:00 WBC 3.8 L RBC 2.80 L Hgb 7.4 L Hct 22.9 L MCV 82 L MCH 27 L MCHC RDW 19.0 H Lymph % (Auto) [place] % (Auto) Eos % (Auto) [place] # Seg Neutrophils % Seg Neuts % (Manual) 87.0 H Lymphocytes % (Manual) 5.0 L Eosinophils % (Manual) 7.0 H Seg Neutrophils # Lymphocytes # (Manual) 0.2 L POC ABG pH POC ABG pO2 ABG pO2 ABG Base Excess ABG Hemoglobin Oxyhemoglobin Sodium 147 H Potassium Chloride Carbon Dioxide 33 H BUN 50 H Creatinine Glucose 193 H POC Glucose Lactic Acid 3.70 H* Calcium 8.1 L AST 154 H ALT 134 H Alkaline Phosphatase 586 H Total Creatine Kinase CK-MB (CK-2) Troponin T NT-Pro-B Natriuret Pep Albumin 1.2 L Triglycerides LDL Cholesterol Direct HDL Cholesterol Urine WBC (Auto) Crossmatch 11/13/18 11/13/18 11/13/18 14:00 14:44 14:49 WBC RBC Hgb Hct MCV MCH MCHC RDW Lymph % (Auto) [place] % (Auto) Eos % (Auto) [place] # Seg Neutrophils % Seg Neuts % (Manual) Lymphocytes % (Manual) Eosinophils % (Manual) Seg Neutrophils # Lymphocytes # (Manual) POC ABG pH POC ABG pO2 ABG pO2 ABG Base Excess ABG Hemoglobin Oxyhemoglobin Sodium Potassium Chloride Carbon Dioxide BUN Creatinine Glucose POC Glucose Lactic Acid 2.60 H* Calcium AST ALT Alkaline Phosphatase Total Creatine Kinase 510 H CK-MB (CK-2) 4.4 H Troponin T 0.348 H* NT-Pro-B Natriuret Pep 3679 H Albumin Triglycerides 284 H LDL Cholesterol Direct 4 L HDL Cholesterol 7 L Urine WBC (Auto) 36.0 H Crossmatch 11/13/18 11/13/18 11/13/18 14:49 14:49 14:52 WBC RBC Hgb Hct MCV MCH MCHC RDW Lymph % (Auto) [place] % (Auto) Eos % (Auto) [place] # Seg Neutrophils % Seg Neuts % (Manual) Lymphocytes % (Manual) Eosinophils % (Manual) Seg Neutrophils # Lymphocytes # (Manual) POC ABG pH POC ABG pO2 ABG pO2 ABG Base Excess ABG Hemoglobin Oxyhemoglobin Sodium Potassium Chloride Carbon Dioxide BUN Creatinine Glucose POC Glucose 205 H Lactic Acid 3.90 H* Calcium AST ALT Alkaline Phosphatase Total Creatine Kinase CK-MB (CK-2) Troponin T NT-Pro-B Natriuret Pep Albumin Triglycerides LDL Cholesterol Direct HDL Cholesterol Urine WBC (Auto) Crossmatch See Detail 11/13/18 11/13/18 11/13/18 16:58 17:13 19:46 WBC RBC Hgb Hct MCV MCH MCHC RDW Lymph % (Auto) [place] % (Auto) Eos % (Auto) [place] # Seg Neutrophils % Seg Neuts % (Manual) Lymphocytes % (Manual) Eosinophils % (Manual) Seg Neutrophils # Lymphocytes # (Manual) POC ABG pH 7.573 H POC ABG pO2 ABG pO2 ABG Base Excess ABG Hemoglobin Oxyhemoglobin Sodium Potassium Chloride Carbon Dioxide BUN Creatinine Glucose POC Glucose Lactic Acid 3.90 H* 4.40 H* Calcium AST ALT Alkaline Phosphatase Total Creatine Kinase CK-MB (CK-2) Troponin T NT-Pro-B Natriuret Pep Albumin Triglycerides LDL Cholesterol Direct HDL Cholesterol Urine WBC (Auto) Crossmatch 11/13/18 11/14/18 11/14/18 21:34 04:50 05:23 WBC RBC Hgb Hct MCV MCH MCHC RDW Lymph % (Auto) [place] % (Auto) Eos % (Auto) [place] # Seg Neutrophils % Seg Neuts % (Manual) Lymphocytes % (Manual) Eosinophils % (Manual) Seg Neutrophils # Lymphocytes # (Manual) POC ABG pH POC ABG pO2 ABG pO2 120.8 H ABG Base Excess ABG Hemoglobin 10.9 L Oxyhemoglobin Sodium Potassium Chloride Carbon Dioxide BUN Creatinine Glucose POC Glucose 263 H Lactic Acid 4.50 H* Calcium AST ALT Alkaline Phosphatase Total Creatine Kinase CK-MB (CK-2) Troponin T NT-Pro-B Natriuret Pep Albumin Triglycerides LDL Cholesterol Direct HDL Cholesterol Urine WBC (Auto) Crossmatch 11/14/18 11/14/18 11/14/18 05:46 08:02 12:42 WBC RBC Hgb Hct MCV MCH MCHC RDW Lymph % (Auto) [place] % (Auto) Eos % (Auto) [place] # Seg Neutrophils % Seg Neuts % (Manual) Lymphocytes % (Manual) Eosinophils % (Manual) Seg Neutrophils # Lymphocytes # (Manual) POC ABG pH 7.463 H POC ABG pO2 136 H ABG pO2 ABG Base Excess ABG Hemoglobin Oxyhemoglobin Sodium Potassium Chloride Carbon Dioxide BUN Creatinine Glucose POC Glucose 213 H Lactic Acid 2.70 H* Calcium AST ALT Alkaline Phosphatase Total Creatine Kinase CK-MB (CK-2) Troponin T NT-Pro-B Natriuret Pep Albumin Triglycerides LDL Cholesterol Direct HDL Cholesterol Urine WBC (Auto) Crossmatch 11/14/18 11/14/18 11/14/18 14:17 14:17 15:50 WBC 13.1 H 13.1 H RBC 2.36 L 2.36 L Hgb 6.1 L 6.1 L Hct 19.6 L* 19.4 L* MCV 83 L 82 L MCH 26 L 26 L MCHC 31 L 31 L RDW 19.4 H 19.3 H Lymph % (Auto) [place] % (Auto) Eos % (Auto) [place] # Seg Neutrophils % Seg Neuts % (Manual) Lymphocytes % (Manual) Eosinophils % (Manual) Seg Neutrophils # Lymphocytes # (Manual) POC ABG pH POC ABG pO2 ABG pO2 ABG Base Excess ABG Hemoglobin Oxyhemoglobin Sodium 148 H Potassium Chloride 110.3 H Carbon Dioxide BUN 56 H Creatinine Glucose 203 H POC Glucose Lactic Acid Calcium 7.6 L AST ALT Alkaline Phosphatase Total Creatine Kinase CK-MB (CK-2) Troponin T NT-Pro-B Natriuret Pep Albumin Triglycerides LDL Cholesterol Direct HDL Cholesterol Urine WBC (Auto) Crossmatch 11/14/18 11/14/18 11/15/18 18:19 23:52 05:10 WBC 16.2 H RBC 3.22 L Hgb 8.8 L Hct 26.8 L D MCV 83 L MCH 27 L MCHC RDW 16.8 H Lymph % (Auto) [place] % (Auto) Eos % (Auto) [place] # Seg Neutrophils % Seg Neuts % (Manual) Lymphocytes % (Manual) Eosinophils % (Manual) Seg Neutrophils # Lymphocytes # (Manual) POC ABG pH POC ABG pO2 ABG pO2 ABG Base Excess ABG Hemoglobin Oxyhemoglobin Sodium Potassium Chloride Carbon Dioxide BUN Creatinine Glucose POC Glucose 213 H 242 H Lactic Acid Calcium AST ALT Alkaline Phosphatase Total Creatine Kinase CK-MB (CK-2) Troponin T NT-Pro-B Natriuret Pep Albumin Triglycerides LDL Cholesterol Direct HDL Cholesterol Urine WBC (Auto) Crossmatch 11/15/18 11/15/18 11/15/18 05:10 05:36 11:15 WBC RBC Hgb Hct MCV MCH MCHC RDW Lymph % (Auto) [place] % (Auto) Eos % (Auto) [place] # Seg Neutrophils % Seg Neuts % (Manual) Lymphocytes % (Manual) Eosinophils % (Manual) Seg Neutrophils # Lymphocytes # (Manual) POC ABG pH POC ABG pO2 ABG pO2 ABG Base Excess ABG Hemoglobin Oxyhemoglobin Sodium 148 H Potassium 3.5 L Chloride 112.8 H Carbon Dioxide BUN 51 H Creatinine Glucose 154 H POC Glucose 143 H 139 H Lactic Acid Calcium 7.8 L AST ALT Alkaline Phosphatase Total Creatine Kinase CK-MB (CK-2) Troponin T NT-Pro-B Natriuret Pep Albumin Triglycerides LDL Cholesterol Direct HDL Cholesterol Urine WBC (Auto) Crossmatch 11/15/18 11/15/18 11/15/18 12:00 18:28 20:56 WBC RBC Hgb Hct MCV MCH MCHC RDW Lymph % (Auto) [place] % (Auto) Eos % (Auto) [place] # Seg Neutrophils % Seg Neuts % (Manual) Lymphocytes % (Manual) Eosinophils % (Manual) Seg Neutrophils # Lymphocytes # (Manual) POC ABG pH POC ABG pO2 ABG pO2 ABG Base Excess ABG Hemoglobin Oxyhemoglobin Sodium 148 H Potassium 3.2 L Chloride 113.0 H Carbon Dioxide BUN 44 H Creatinine Glucose 144 H POC Glucose 159 H 150 H Lactic Acid Calcium 7.7 L AST ALT Alkaline Phosphatase Total Creatine Kinase CK-MB (CK-2) Troponin T NT-Pro-B Natriuret Pep Albumin Triglycerides LDL Cholesterol Direct HDL Cholesterol Urine WBC (Auto) Crossmatch 11/15/18 11/16/18 11/16/18 23:32 03:40 03:45 WBC 16.1 H RBC 3.30 L Hgb 8.9 L Hct 27.9 L MCV MCH 27 L MCHC RDW 17.5 H Lymph % (Auto) [place] % (Auto) Eos % (Auto) [place] # Seg Neutrophils % Seg Neuts % (Manual) Lymphocytes % (Manual) Eosinophils % (Manual) Seg Neutrophils # Lymphocytes # (Manual) POC ABG pH POC ABG pO2 ABG pO2 147.0 H ABG Base Excess ABG Hemoglobin 12.0 L Oxyhemoglobin Sodium Potassium Chloride Carbon Dioxide BUN Creatinine Glucose POC Glucose 131 H Lactic Acid Calcium AST ALT Alkaline Phosphatase Total Creatine Kinase CK-MB (CK-2) Troponin T NT-Pro-B Natriuret Pep Albumin Triglycerides LDL Cholesterol Direct HDL Cholesterol Urine WBC (Auto) Crossmatch 11/16/18 11/16/18 11/16/18 03:45 05:15 15:14 WBC RBC Hgb Hct MCV MCH MCHC RDW Lymph % (Auto) [place] % (Auto) Eos % (Auto) [place] # Seg Neutrophils % Seg Neuts % (Manual) Lymphocytes % (Manual) Eosinophils % (Manual) Seg Neutrophils # Lymphocytes # (Manual) POC ABG pH POC ABG pO2 ABG pO2 ABG Base Excess ABG Hemoglobin Oxyhemoglobin Sodium 149 H Potassium 3.5 L Chloride 116.2 H Carbon Dioxide 21 L BUN 41 H Creatinine Glucose 146 H POC Glucose 155 H 215 H Lactic Acid Calcium 7.7 L AST ALT Alkaline Phosphatase Total Creatine Kinase CK-MB (CK-2) Troponin T NT-Pro-B Natriuret Pep Albumin Triglycerides LDL Cholesterol Direct HDL Cholesterol Urine WBC (Auto) Crossmatch 11/16/18 11/16/18 11/17/18 18:20 23:49 04:49 WBC 12.1 H RBC 3.34 L Hgb 9.0 L Hct 28.1 L MCV MCH 27 L MCHC RDW 17.5 H Lymph % (Auto) [place] % (Auto) Eos % (Auto) [place] # Seg Neutrophils % Seg Neuts % (Manual) Lymphocytes % (Manual) Eosinophils % (Manual) Seg Neutrophils # Lymphocytes # (Manual) POC ABG pH POC ABG pO2 ABG pO2 ABG Base Excess ABG Hemoglobin Oxyhemoglobin Sodium Potassium Chloride Carbon Dioxide BUN Creatinine Glucose POC Glucose 230 H 189 H Lactic Acid Calcium AST ALT Alkaline Phosphatase Total Creatine Kinase CK-MB (CK-2) Troponin T NT-Pro-B Natriuret Pep Albumin Triglycerides LDL Cholesterol Direct HDL Cholesterol Urine WBC (Auto) Crossmatch 11/17/18 11/17/18 11/17/18 04:49 05:45 14:16 WBC RBC Hgb Hct MCV MCH MCHC RDW Lymph % (Auto) [place] % (Auto) Eos % (Auto) [place] # Seg Neutrophils % Seg Neuts % (Manual) Lymphocytes % (Manual) Eosinophils % (Manual) Seg Neutrophils # Lymphocytes # (Manual) POC ABG pH POC ABG pO2 ABG pO2 ABG Base Excess ABG Hemoglobin Oxyhemoglobin Sodium 150 H Potassium 3.2 L Chloride 118.9 H Carbon Dioxide 20 L BUN 38 H Creatinine 0.7 L Glucose 164 H POC Glucose 181 H 172 H Lactic Acid Calcium 7.7 L AST ALT Alkaline Phosphatase Total Creatine Kinase CK-MB (CK-2) Troponin T NT-Pro-B Natriuret Pep Albumin Triglycerides LDL Cholesterol Direct HDL Cholesterol Urine WBC (Auto) Crossmatch 11/17/18 11/17/18 11/18/18 23:36 Unknown 04:10 WBC RBC Hgb Hct MCV MCH MCHC RDW Lymph % (Auto) [place] % (Auto) Eos % (Auto) [place] # Seg Neutrophils % Seg Neuts % (Manual) Lymphocytes % (Manual) Eosinophils % (Manual) Seg Neutrophils # Lymphocytes # (Manual) POC ABG pH POC ABG pO2 ABG pO2 105.9 H 101.8 H ABG Base Excess -2.3 L -3.2 L ABG Hemoglobin 11.5 L 10.2 L Oxyhemoglobin Sodium Potassium Chloride Carbon Dioxide BUN Creatinine Glucose POC Glucose 214 H Lactic Acid Calcium AST ALT Alkaline Phosphatase Total Creatine Kinase CK-MB (CK-2) Troponin T NT-Pro-B Natriuret Pep Albumin Triglycerides LDL Cholesterol Direct HDL Cholesterol Urine WBC (Auto) Crossmatch 11/18/18 11/18/18 11/18/18 04:37 04:37 05:36 WBC RBC 3.10 L Hgb 8.5 L Hct 26.8 L MCV MCH 27 L MCHC RDW 17.8 H Lymph % (Auto) 12.8 L [place] % (Auto) 8.5 H Eos % (Auto) [place] # 0.9 H Seg Neutrophils % 75.8 H Seg Neuts % (Manual) Lymphocytes % (Manual) Eosinophils % (Manual) Seg Neutrophils # 8.0 H Lymphocytes # (Manual) POC ABG pH POC ABG pO2 ABG pO2 ABG Base Excess ABG Hemoglobin Oxyhemoglobin Sodium 148 H Potassium 3.3 L Chloride 118.3 H Carbon Dioxide 20 L BUN 32 H Creatinine 0.7 L Glucose 154 H POC Glucose 171 H Lactic Acid Calcium 7.4 L AST ALT Alkaline Phosphatase Total Creatine Kinase CK-MB (CK-2) Troponin T NT-Pro-B Natriuret Pep Albumin Triglycerides LDL Cholesterol Direct HDL Cholesterol Urine WBC (Auto) Crossmatch 11/18/18 11/18/18 11/18/18 12:10 17:27 23:56 WBC RBC Hgb Hct MCV MCH MCHC RDW Lymph % (Auto) [place] % (Auto) Eos % (Auto) [place] # Seg Neutrophils % Seg Neuts % (Manual) Lymphocytes % (Manual) Eosinophils % (Manual) Seg Neutrophils # Lymphocytes # (Manual) POC ABG pH POC ABG pO2 ABG pO2 ABG Base Excess ABG Hemoglobin Oxyhemoglobin Sodium Potassium Chloride Carbon Dioxide BUN Creatinine Glucose POC Glucose 244 H 239 H 241 H Lactic Acid Calcium AST ALT Alkaline Phosphatase Total Creatine Kinase CK-MB (CK-2) Troponin T NT-Pro-B Natriuret Pep Albumin Triglycerides LDL Cholesterol Direct HDL Cholesterol Urine WBC (Auto) Crossmatch 11/19/18 11/19/18 11/19/18 03:45 04:27 06:37 WBC RBC Hgb Hct MCV MCH MCHC RDW Lymph % (Auto) [place] % (Auto) Eos % (Auto) [place] # Seg Neutrophils % Seg Neuts % (Manual) Lymphocytes % (Manual) Eosinophils % (Manual) Seg Neutrophils # Lymphocytes # (Manual) POC ABG pH POC ABG pO2 ABG pO2 95.5 H ABG Base Excess -4.0 L ABG Hemoglobin 5.9 L Oxyhemoglobin Sodium 147 H Potassium Chloride 119.2 H Carbon Dioxide 20 L BUN 28 H Creatinine 0.6 L Glucose 181 H POC Glucose 220 H Lactic Acid Calcium 7.6 L AST ALT Alkaline Phosphatase Total Creatine Kinase CK-MB (CK-2) Troponin T NT-Pro-B Natriuret Pep Albumin Triglycerides LDL Cholesterol Direct HDL Cholesterol Urine WBC (Auto) Crossmatch 11/19/18 11/19/18 11/19/18 06:41 11:27 17:31 WBC RBC 3.28 L Hgb 9.0 L Hct 28.2 L MCV MCH MCHC RDW 17.9 H Lymph % (Auto) [place] % (Auto) 11.0 H Eos % (Auto) [place] # 1.1 H Seg Neutrophils % Seg Neuts % (Manual) Lymphocytes % (Manual) Eosinophils % (Manual) Seg Neutrophils # Lymphocytes # (Manual) POC ABG pH POC ABG pO2 ABG pO2 ABG Base Excess ABG Hemoglobin Oxyhemoglobin Sodium Potassium Chloride Carbon Dioxide BUN Creatinine Glucose POC Glucose 280 H 300 H Lactic Acid Calcium AST ALT Alkaline Phosphatase Total Creatine Kinase CK-MB (CK-2) Troponin T NT-Pro-B Natriuret Pep Albumin Triglycerides LDL Cholesterol Direct HDL Cholesterol Urine WBC (Auto) Crossmatch 11/19/18 11/20/18 11/20/18 23:30 03:03 03:03 WBC RBC 3.04 L Hgb 8.4 L Hct 26.1 L MCV MCH MCHC RDW 18.1 H Lymph % (Auto) [place] % (Auto) 11.0 H Eos % (Auto) [place] # 0.9 H Seg Neutrophils % Seg Neuts % (Manual) Lymphocytes % (Manual) Eosinophils % (Manual) Seg Neutrophils # Lymphocytes # (Manual) POC ABG pH POC ABG pO2 ABG pO2 ABG Base Excess ABG Hemoglobin Oxyhemoglobin Sodium 148 H Potassium Chloride 117.4 H Carbon Dioxide BUN 24 H Creatinine 0.6 L Glucose 238 H POC Glucose 251 H Lactic Acid Calcium 7.9 L AST ALT Alkaline Phosphatase Total Creatine Kinase CK-MB (CK-2) Troponin T NT-Pro-B Natriuret Pep Albumin Triglycerides LDL Cholesterol Direct HDL Cholesterol Urine WBC (Auto) Crossmatch 11/20/18 11/20/18 11/20/18 04:20 05:15 12:21 WBC RBC Hgb Hct MCV MCH MCHC RDW Lymph % (Auto) [place] % (Auto) Eos % (Auto) [place] # Seg Neutrophils % Seg Neuts % (Manual) Lymphocytes % (Manual) Eosinophils % (Manual) Seg Neutrophils # Lymphocytes # (Manual) POC ABG pH POC ABG pO2 ABG pO2 91.3 H ABG Base Excess -2.6 L ABG Hemoglobin 8.3 L Oxyhemoglobin Sodium Potassium Chloride Carbon Dioxide BUN Creatinine Glucose POC Glucose 213 H 318 H Lactic Acid Calcium AST ALT Alkaline Phosphatase Total Creatine Kinase CK-MB (CK-2) Troponin T NT-Pro-B Natriuret Pep Albumin Triglycerides LDL Cholesterol Direct HDL Cholesterol Urine WBC (Auto) Crossmatch 11/20/18 11/20/18 11/20/18 18:01 20:50 23:36 WBC RBC Hgb Hct MCV MCH MCHC RDW Lymph % (Auto) [place] % (Auto) Eos % (Auto) [place] # Seg Neutrophils % Seg Neuts % (Manual) Lymphocytes % (Manual) Eosinophils % (Manual) Seg Neutrophils # Lymphocytes # (Manual) POC ABG pH POC ABG pO2 ABG pO2 90.8 H ABG Base Excess -2.1 L ABG Hemoglobin 13.4 L Oxyhemoglobin 94.9 L Sodium Potassium Chloride Carbon Dioxide BUN Creatinine Glucose POC Glucose 301 H 290 H Lactic Acid Calcium AST ALT Alkaline Phosphatase Total Creatine Kinase CK-MB (CK-2) Troponin T NT-Pro-B Natriuret Pep Albumin Triglycerides LDL Cholesterol Direct HDL Cholesterol Urine WBC (Auto) Crossmatch 11/21/18 11/21/18 11/21/18 03:09 03:09 05:10 WBC RBC 3.05 L Hgb 8.5 L Hct 26.1 L MCV MCH MCHC RDW 18.7 H Lymph % (Auto) [place] % (Auto) 12.2 H Eos % (Auto) [place] # 0.9 H Seg Neutrophils % Seg Neuts % (Manual) Lymphocytes % (Manual) Eosinophils % (Manual) Seg Neutrophils # Lymphocytes # (Manual) POC ABG pH POC ABG pO2 ABG pO2 ABG Base Excess ABG Hemoglobin Oxyhemoglobin Sodium 150 H Potassium 3.5 L Chloride 118.5 H Carbon Dioxide BUN 22 H Creatinine 0.6 L Glucose 279 H POC Glucose 307 H Lactic Acid Calcium 7.7 L AST ALT Alkaline Phosphatase Total Creatine Kinase CK-MB (CK-2) Troponin T NT-Pro-B Natriuret Pep Albumin Triglycerides LDL Cholesterol Direct HDL Cholesterol Urine WBC (Auto) Crossmatch 11/21/18 11/21/18 11/21/18 11:24 17:23 23:20 WBC RBC Hgb Hct MCV MCH MCHC RDW Lymph % (Auto) [place] % (Auto) Eos % (Auto) [place] # Seg Neutrophils % Seg Neuts % (Manual) Lymphocytes % (Manual) Eosinophils % (Manual) Seg Neutrophils # Lymphocytes # (Manual) POC ABG pH POC ABG pO2 ABG pO2 ABG Base Excess ABG Hemoglobin Oxyhemoglobin Sodium Potassium Chloride Carbon Dioxide BUN Creatinine Glucose POC Glucose 324 H 288 H 254 H Lactic Acid Calcium AST ALT Alkaline Phosphatase Total Creatine Kinase CK-MB (CK-2) Troponin T NT-Pro-B Natriuret Pep Albumin Triglycerides LDL Cholesterol Direct HDL Cholesterol Urine WBC (Auto) Crossmatch 11/22/18 11/22/18 11/22/18 03:50 05:43 06:10 WBC RBC 2.93 L Hgb 8.1 L Hct 25.2 L MCV MCH MCHC RDW 18.6 H Lymph % (Auto) [place] % (Auto) 10.9 H Eos % (Auto) 4.4 H [place] # 0.9 H Seg Neutrophils % Seg Neuts % (Manual) Lymphocytes % (Manual) Eosinophils % (Manual) Seg Neutrophils # Lymphocytes # (Manual) POC ABG pH POC ABG pO2 ABG pO2 94.6 H ABG Base Excess ABG Hemoglobin 6.5 L Oxyhemoglobin Sodium Potassium Chloride Carbon Dioxide BUN Creatinine Glucose POC Glucose 227 H Lactic Acid Calcium AST ALT Alkaline Phosphatase Total Creatine Kinase CK-MB (CK-2) Troponin T NT-Pro-B Natriuret Pep Albumin Triglycerides LDL Cholesterol Direct HDL Cholesterol Urine WBC (Auto) Crossmatch 11/22/18 11/22/18 06:10 11:35 WBC RBC Hgb Hct MCV MCH MCHC RDW Lymph % (Auto) [place] % (Auto) Eos % (Auto) [place] # Seg Neutrophils % Seg Neuts % (Manual) Lymphocytes % (Manual) Eosinophils % (Manual) Seg Neutrophils # Lymphocytes # (Manual) POC ABG pH POC ABG pO2 ABG pO2 ABG Base Excess ABG Hemoglobin Oxyhemoglobin Sodium 146 H Potassium 3.3 L Chloride 114.8 H Carbon Dioxide BUN 21 H Creatinine 0.5 L Glucose 214 H POC Glucose 262 H Lactic Acid Calcium 7.7 L AST ALT Alkaline Phosphatase Total Creatine Kinase CK-MB (CK-2) Troponin T NT-Pro-B Natriuret Pep Albumin Triglycerides LDL Cholesterol Direct HDL Cholesterol Urine WBC (Auto) Crossmatch Chest x-ray: other (None for my review today) Allied health notes reviewed: nursing
[2018-11-22] MEDS: TRANSDERM-SCOP TD SCH (16:00)
[2018-11-23] MEDS: HumaLOG SUB-Q SCH ×3 (06:15→17:15)
[2018-11-23 08:00] LABS: Basophils % (Auto) 0.6 % (0.0-1.8); Eosinophils # (Auto) 0.3 K/mm3 (0.0-0.4); Eosinophils % (Auto) 4.5 % (0.0-4.3); Hematocrit 25.1 % (35.5-45.6); Lymphocytes # (Auto) 1.7 K/mm3 (1.2-5.4); Lymphocytes % (Auto) 22.4 % (13.4-35.0); Mean Corpuscular HGB Conc 32 % (32-34); Mean Corpuscular Volume 86 fl (84-94); Monocytes # (Auto) 0.7 K/mm3 (0.0-0.8); Monocytes % (Auto) 8.7 % (0.0-7.3); Platelet Count 194 K/mm3 (140-440); Red Cell Distribution Width 18.7 % (13.2-15.2)
[2018-11-23 08:05] LABS: BUN/Creatinine Ratio 45; Blood Urea Nitrogen 18 mg/dL (9-20); Calcium 7.8 mg/dL (8.4-10.2); Hemolysis Index 4
[2018-11-23] MEDS: HEPARIN SUB-Q SCH ×2 (10:37→20:59)
[2018-11-23] MEDS: ZYVOX PO SCH ×2 (10:38→20:59)
[2018-11-23] MEDS: LANTUS SUB-Q SCH ×2 (10:38→22:20)
[2018-11-23] MEDS: PREVACID SOLUTAB FEEDTUBE SCH (10:38)
[2018-11-23] MEDS: NORVASC PO SCH (10:38)
[2018-11-23] MEDS: DAKIN'S HALF STRENGTH TP SCH ×2 (10:39→20:59)
--- NOTE | 2018-11-23 11:06 | Progress Note ---
Assessment and Plan Cultures: 11/13 BCx - VRE 11/13 UCx - >100k mixed kole 11/13 Sputum Cx - not run due to contamination 11/16/2018 Blood culture: no growth thus far A/P: 77 yo M PMHx CVA, seizures, HTN, DM2 admitted for worsenign respiratory status. 1. Septic shock secondary to VRE bacteremia: Off pressors. Source: urine v/s large sacral decubitus ulcer. TTE poor windows, if repeat blood cultures remain negative, would not recommend GLORIA since overall prognosis remains extremely poor and he is not going to be a candidate for any valve surgeries. Repeat blood cultures are negative. 2. Acute on chronic respiratory failure - CXR with congestion, no focal infiltrate to suggest pneumonia. VRE / Enterococcus rarely causes pneumonia. 3. UTI - Urine cultures with mixed kole. >100 CFU, probably cause of Enterococcal bacteremia. 4. Large sacral decubitus ulcer, infected, with eschar: could be the source of the VRE bacteremia. Appreciate General Surgery recommendations. Agree that progn osis is extremely poor. Noted plans for surgical debridement based on discussion with in spite of no hope for cure. 5. DM-2 6. Hx of CVA: s/p trach and PEG. 7. Elevated LFTs: probably from sepsis. RUQ US showed collapsed GB, no gallstones, trace ascites and hepatic steatosis. Recs: - continue PO Linezolid 600 mg BID. Stop date 11/29. Prolonged abx are going to be futile. - monitor platelets while on linezolid - noted plans for debridement of the wound - continue wound care and contact isolation - overall prognosis remains extremely poor Thank you for the consult, we will continue to follow. Darcy Noonan MD [facility] ([facility]) M: [phone] O: [phone] F: [phone] Subjective Date of service: 11/23/18 Principal diagnosis: Severe sepsis with shock; Ac and ch resp failure; Metabolic encephalopathy Interval history: No change today. Objective - Exam Narrative Exam: Physical Exam: Constitutional: Non-responsive. No acute distress Head, Ears, Nose: Normocephalic, atraumatic. External ears, nose normal. Intubated Eyes: Conjunctivae/corneas clear. No icterus. No ptosis. Neck: Supple, no meningeal signs Oral: dentition fair, no thrush Cardiovascular: S1, S2 normal. Respiratory: Good air entry, clear to auscultation bilaterally GI: Soft, non-tender; bowel sounds normal. No peritoneal signs. Musculoskeletal: No pedal edema, no cyanosis. Skin: No rash or abscess Hem/Lymphatic: No palpable cervical or supraclavicular nodes. No lymphangitis Psych: Mood ok. Affect normal Neurological: Intubated, non-responsive. - Constitutional Vitals: Vital Signs Temp Pulse Resp BP Pulse Ox 97.3 F L 80 15 157/78 100 11/23/18 08:00 11/23/18 10:38 11/23/18 09:01 11/23/18 10:38 11/23/18 09:42 Temperature -Last 24 Hours Temperature 97.3 F Temperature 97.1 F Temperature 98.0 F Temperature 97.2 F Temperature 97.1 F Temperature 97.9 F - Labs CBC & Chem 7: 11/23/18 06:48 11/23/18 06:48 Labs: Abnormal lab results 11/22/18 11/22/18 11/22/18 Range/Units 11:35 17:07 23:23 RBC (3.65-5.03) M/mm3 Hgb (11.8-15.2) gm/dl Hct (35.5-45.6) % RDW (13.2-15.2) % [place] % (Auto) (0.0-7.3) % Eos % (Auto) (0.0-4.3) % Sodium (137-145) mmol/L Chloride (98-107) mmol/L Creatinine (0.8-1.5) mg/dL Glucose (75-100) mg/dL POC Glucose 262 H 205 H 165 H (70-105) Calcium (8.4-10.2) mg/dL 11/23/18 11/23/18 11/23/18 Range/Units 05:35 06:48 06:48 RBC 2.90 L (3.65-5.03) M/mm3 Hgb 8.0 L (11.8-15.2) gm/dl Hct 25.1 L (35.5-45.6) % RDW 18.7 H (13.2-15.2) % [place] % (Auto) 8.7 H (0.0-7.3) % Eos % (Auto) 4.5 H (0.0-4.3) % Sodium 146 H (137-145) mmol/L Chloride 115.4 H (98-107) mmol/L Creatinine 0.4 L (0.8-1.5) mg/dL Glucose 144 H (75-100) mg/dL POC Glucose 140 H (70-105) Calcium 7.8 L (8.4-10.2) mg/dL
--- NOTE | 2018-11-23 12:14 | Progress Note ---
Assessment and Plan Acute on chronic hypoxemic respiratory failure on MVS Severe sepsis with shock, off vasopressors VRE bacteremia UTI Large sacaral decubitus ulcer Acute on chronic metabolic encephalopathy Orophargyngeal dysphagia s/p PEG h/o CVAs Transaminitis probably secondary to hypotension Type 2 DM Hypernatremia Hypokalemia - get ABG at 9-10 pm tonight and if acceptable will shoot for RTC t-piece as tolerated - surgeon spoke with his re: debridement and he is awaiting her decision - increased Lantus to 20 units SQ daily - continue amlodipine 5 mg p.o. daily - continue hydralazine 10 mg IV q4h prn SBP >/= 170 mmHg - repeat CXR prn at this time - continue scopolamine patch for secretion control - VAP bundle addressed - Trach care, airway clearance and secretion management - Lung protective strategies - Accuchecks with glycemic control, continue with insulin infusion per protocol - Douglass catheter for accurate intake and output monitoring in this critically ill patient with history of chronic douglass/urinary retention - Avoid nephrotoxins - VTE prophylaxis - Stress ulcer prophylaxis - Antibiotics per ID, de-escalate as indicated - Mobility and off loading for sacral decubitus - Wound care - Free water flushes and hypotonic solutions for hypernatremia - Optimize nutrition to help promote wound healing - Supportive transfusions as indicated, to keep HgB>7g/dL - Vasopressor support as indicated for MAP<65, with blood pressure unresponsive to volume resuscitation - Continue to monitor hemodynamics closely - Keep Potassium at 4, to optimize respiratory muscle function - LTAC evaluation is ongoing ... re-evaluate in am & prn Awaiting further family decisions re goals of care CONDITION: CRITICAL PROGNOSIS; POOR CODE STATUS: FULL Discussed care plan with RT and RN. Discussed during ICU-IDT rounds Goals of care need to be re-addressed with family The high probability of a clinically significant, sudden or life threatening deterioration of the respiratory, cardiovascular,endocrine, system(s) required my full and direct attention, intervention and personal management. The aggreg ate critical care time was [32] minutes. This time is in addition to time spent performing reported procedures but includes the following: [x] Data Review and interpretation [x]Patient assessment and monitoring of vital signs [x] Documentation [x] Medication orders and management Subjective Date of service: 11/23/18 Principal diagnosis: Severe sepsis with shock; Ac and ch resp failure; Metabolic encephalopathy Interval history: Patient is seen today for: Severe sepsis with septic shock; Acute and chronic respiratory failure on MVS; Acute and chronic metabolic encephalopathy; Seen and examined at bedside; 24hour events reviewed; nursing and respiratory care staff consulted; resting peacefully in bed; on T-piece and tolerating well; AMS is persistent; his has not decided on wound debridement yet; no new issues otherwise Objective Vital Signs - 12hr 11/23/18 11/23/18 11/23/18 00:30 01:01 01:31 Temperature Pulse Rate 63 60 60 Pulse Rate [ From Monitor] Respiratory 17 16 12 Rate Blood Pressure 150/66 150/64 157/67 O2 Sat by Pulse 97 100 99 Oximetry O2 Sat by Pulse Oximetry [ Assessment] 11/23/18 11/23/18 11/23/18 02:00 02:31 03:01 Temperature Pulse Rate 63 62 60 Pulse Rate [ From Monitor] Respiratory 18 18 13 Rate Blood Pressure 157/67 148/67 149/68 O2 Sat by Pulse 97 100 100 Oximetry O2 Sat by Pulse Oximetry [ Assessment] 11/23/18 11/23/18 11/23/18 03:30 04:00 04:01 Temperature 97.1 F L Pulse Rate 69 67 68 Pulse Rate [ 68 From Monitor] Respiratory 17 17 17 Rate Blood Pressure 151/99 159/67 O2 Sat by Pulse 98 99 97 Oximetry O2 Sat by Pulse Oximetry [ Assessment] 11/23/18 11/23/18 11/23/18 04:26 04:31 05:00 Temperature Pulse Rate 62 64 Pulse Rate [ From Monitor] Respiratory 17 Rate Blood Pressure 159/67 151/61 O2 Sat by Pulse 100 99 Oximetry O2 Sat by Pulse 100 Oximetry [ Assessment] 11/23/18 11/23/18 11/23/18 05:01 05:31 06:01 Temperature Pulse Rate 62 61 63 Pulse Rate [ From Monitor] Respiratory 18 16 17 Rate Blood Pressure 153/65 162/69 162/69 O2 Sat by Pulse 99 98 99 Oximetry O2 Sat by Pulse Oximetry [ Assessment] 11/23/18 11/23/18 11/23/18 06:31 07:01 07:31 Temperature Pulse Rate 62 62 63 Pulse Rate [ From Monitor] Respiratory 12 18 17 Rate Blood Pressure 156/68 160/68 162/72 O2 Sat by Pulse 98 98 98 Oximetry O2 Sat by Pulse Oximetry [ Assessment] 11/23/18 11/23/18 11/23/18 08:00 08:01 08:31 Temperature 97.3 F L Pulse Rate 63 62 61 Pulse Rate [ 61 From Monitor] Respiratory 16 18 13 Rate Blood Pressure 164/72 164/72 O2 Sat by Pulse 100 98 100 Oximetry O2 Sat by Pulse Oximetry [ Assessment] 11/23/18 11/23/18 11/23/18 09:01 09:25 09:31 Temperature Pulse Rate 63 63 Pulse Rate [ From Monitor] Respiratory 15 19 Rate Blood Pressure 158/70 149/66 O2 Sat by Pulse 98 97 Oximetry O2 Sat by Pulse 100 Oximetry [ Assessment] 11/23/18 11/23/18 11/23/18 09:42 10:00 10:30 Temperature Pulse Rate 76 77 81 Pulse Rate [ From Monitor] Respiratory 9 L 10 L Rate Blood Pressure 149/66 153/75 157/78 O2 Sat by Pulse 100 99 99 Oximetry O2 Sat by Pulse Oximetry [ Assessment] 11/23/18 11/23/18 11/23/18 10:38 11:00 11:30 Temperature Pulse Rate 80 82 87 Pulse Rate [ From Monitor] Respiratory 10 L 14 Rate Blood Pressure 157/78 155/80 150/78 O2 Sat by Pulse 99 99 Oximetry O2 Sat by Pulse Oximetry [ Assessment] 11/23/18 12:00 Temperature 96.8 F L Pulse Rate 82 Pulse Rate [ 82 From Monitor] Respiratory 12 Rate Blood Pressure 148/75 O2 Sat by Pulse 98 Oximetry O2 Sat by Pulse Oximetry [ Assessment] Constitutional: no acute distress, other (elderly looking AAM on MVS; trach in place; no patient-ventilator dys-synchrony) Eyes: non-icteric ENT: oropharynx moist Neck: supple, no lymphadenopathy, no JVD, other (midline trach) Effort: mildly labored Ascultation: Bilateral: diminished breath sounds, rhonchi (scant in bases) Percussion: Bilateral: not dull Cardiovascular: regular rate and rhythm, other (S1,S2) Gastrointestinal: normoactive bowel sounds, soft, non-distended, other (PEG in place, chronic douglass catheter) Integumentary: decubitus ulcer (see wound care notes) Extremities: no cyanosis, pink and warm, pulses normal, edema (2+) Neurologic: unable to assess (on vent), other (encephalopathic, unresponsive) Psychiatric: other (unable to assess) CBC and BMP: 11/23/18 06:48 11/23/18 06:48 ABG, PT/INR, D-dimer: ABG POC ABG pH 7.414 (7.35-7.45) 11/23/18 05:26 ABG pH 7.398 pH Units (7.350-7.450) 11/22/18 03:50 POC ABG pCO2 35.8 (35-45) 11/23/18 05:26 ABG pCO2 38.8 mm Hg 11/22/18 03:50 POC ABG pO2 93 (80-105) 11/23/18 05:26 ABG pO2 94.6 mm Hg (80.0-90.0) H 11/22/18 03:50 POC ABG HCO3 22.9 (22-26 mml/L) 11/23/18 05:26 POC ABG Total CO2 24 (23-27mmol/L) 11/23/18 05:26 POC ABG O2 Sat 97 11/23/18 05:26 ABG O2 Saturation 97.4 % (95.0-99.0) 11/22/18 03:50 Abnormal lab findings: Abnormal Labs 11/13/18 11/13/18 11/13/18 03:30 14:00 14:00 WBC 3.8 L RBC 2.80 L Hgb 7.4 L Hct 22.9 L MCV 82 L MCH 27 L MCHC RDW 19.0 H Lymph % (Auto) [place] % (Auto) Eos % (Auto) [place] # Seg Neutrophils % Seg Neuts % (Manual) 87.0 H Lymphocytes % (Manual) 5.0 L Eosinophils % (Manual) 7.0 H Seg Neutrophils # Lymphocytes # (Manual) 0.2 L POC ABG pH POC ABG pO2 ABG pO2 ABG Base Excess ABG Hemoglobin Oxyhemoglobin Sodium 147 H Potassium Chloride Carbon Dioxide 33 H BUN 50 H Creatinine Glucose 193 H POC Glucose Lactic Acid 3.70 H* Calcium 8.1 L AST 154 H ALT 134 H Alkaline Phosphatase 586 H Total Creatine Kinase CK-MB (CK-2) Troponin T NT-Pro-B Natriuret Pep Albumin 1.2 L Triglycerides LDL Cholesterol Direct HDL Cholesterol Urine WBC (Auto) Crossmatch 11/13/18 11/13/18 11/13/18 14:00 14:44 14:49 WBC RBC Hgb Hct MCV MCH MCHC RDW Lymph % (Auto) [place] % (Auto) Eos % (Auto) [place] # Seg Neutrophils % Seg Neuts % (Manual) Lymphocytes % (Manual) Eosinophils % (Manual) Seg Neutrophils # Lymphocytes # (Manual) POC ABG pH POC ABG pO2 ABG pO2 ABG Base Excess ABG Hemoglobin Oxyhemoglobin Sodium Potassium Chloride Carbon Dioxide BUN Creatinine Glucose POC Glucose Lactic Acid 2.60 H* Calcium AST ALT Alkaline Phosphatase Total Creatine Kinase 510 H CK-MB (CK-2) 4.4 H Troponin T 0.348 H* NT-Pro-B Natriuret Pep 3679 H Albumin Triglycerides 284 H LDL Cholesterol Direct 4 L HDL Cholesterol 7 L Urine WBC (Auto) 36.0 H Crossmatch 11/13/18 11/13/18 11/13/18 14:49 14:49 14:52 WBC RBC Hgb Hct MCV MCH MCHC RDW Lymph % (Auto) [place] % (Auto) Eos % (Auto) [place] # Seg Neutrophils % Seg Neuts % (Manual) Lymphocytes % (Manual) Eosinophils % (Manual) Seg Neutrophils # Lymphocytes # (Manual) POC ABG pH POC ABG pO2 ABG pO2 ABG Base Excess ABG Hemoglobin Oxyhemoglobin Sodium Potassium Chloride Carbon Dioxide BUN Creatinine Glucose POC Glucose 205 H Lactic Acid 3.90 H* Calcium AST ALT Alkaline Phosphatase Total Creatine Kinase CK-MB (CK-2) Troponin T NT-Pro-B Natriuret Pep Albumin Triglycerides LDL Cholesterol Direct HDL Cholesterol Urine WBC (Auto) Crossmatch See Detail 11/13/18 11/13/18 11/13/18 16:58 17:13 19:46 WBC RBC Hgb Hct MCV MCH MCHC RDW Lymph % (Auto) [place] % (Auto) Eos % (Auto) [place] # Seg Neutrophils % Seg Neuts % (Manual) Lymphocytes % (Manual) Eosinophils % (Manual) Seg Neutrophils # Lymphocytes # (Manual) POC ABG pH 7.573 H POC ABG pO2 ABG pO2 ABG Base Excess ABG Hemoglobin Oxyhemoglobin Sodium Potassium Chloride Carbon Dioxide BUN Creatinine Glucose POC Glucose Lactic Acid 3.90 H* 4.40 H* Calcium AST ALT Alkaline Phosphatase Total Creatine Kinase CK-MB (CK-2) Troponin T NT-Pro-B Natriuret Pep Albumin Triglycerides LDL Cholesterol Direct HDL Cholesterol Urine WBC (Auto) Crossmatch 11/13/18 11/14/18 11/14/18 21:34 04:50 05:23 WBC RBC Hgb Hct MCV MCH MCHC RDW Lymph % (Auto) [place] % (Auto) Eos % (Auto) [place] # Seg Neutrophils % Seg Neuts % (Manual) Lymphocytes % (Manual) Eosinophils % (Manual) Seg Neutrophils # Lymphocytes # (Manual) POC ABG pH POC ABG pO2 ABG pO2 120.8 H ABG Base Excess ABG Hemoglobin 10.9 L Oxyhemoglobin Sodium Potassium Chloride Carbon Dioxide BUN Creatinine Glucose POC Glucose 263 H Lactic Acid 4.50 H* Calcium AST ALT Alkaline Phosphatase Total Creatine Kinase CK-MB (CK-2) Troponin T NT-Pro-B Natriuret Pep Albumin Triglycerides LDL Cholesterol Direct HDL Cholesterol Urine WBC (Auto) Crossmatch 11/14/18 11/14/18 11/14/18 05:46 08:02 12:42 WBC RBC Hgb Hct MCV MCH MCHC RDW Lymph % (Auto) [place] % (Auto) Eos % (Auto) [place] # Seg Neutrophils % Seg Neuts % (Manual) Lymphocytes % (Manual) Eosinophils % (Manual) Seg Neutrophils # Lymphocytes # (Manual) POC ABG pH 7.463 H POC ABG pO2 136 H ABG pO2 ABG Base Excess ABG Hemoglobin Oxyhemoglobin Sodium Potassium Chloride Carbon Dioxide BUN Creatinine Glucose POC Glucose 213 H Lactic Acid 2.70 H* Calcium AST ALT Alkaline Phosphatase Total Creatine Kinase CK-MB (CK-2) Troponin T NT-Pro-B Natriuret Pep Albumin Triglycerides LDL Cholesterol Direct HDL Cholesterol Urine WBC (Auto) Crossmatch 11/14/18 11/14/18 11/14/18 14:17 14:17 15:50 WBC 13.1 H 13.1 H RBC 2.36 L 2.36 L Hgb 6.1 L 6.1 L Hct 19.6 L* 19.4 L* MCV 83 L 82 L MCH 26 L 26 L MCHC 31 L 31 L RDW 19.4 H 19.3 H Lymph % (Auto) [place] % (Auto) Eos % (Auto) [place] # Seg Neutrophils % Seg Neuts % (Manual) Lymphocytes % (Manual) Eosinophils % (Manual) Seg Neutrophils # Lymphocytes # (Manual) POC ABG pH POC ABG pO2 ABG pO2 ABG Base Excess ABG Hemoglobin Oxyhemoglobin Sodium 148 H Potassium Chloride 110.3 H Carbon Dioxide BUN 56 H Creatinine Glucose 203 H POC Glucose Lactic Acid Calcium 7.6 L AST ALT Alkaline Phosphatase Total Creatine Kinase CK-MB (CK-2) Troponin T NT-Pro-B Natriuret Pep Albumin Triglycerides LDL Cholesterol Direct HDL Cholesterol Urine WBC (Auto) Crossmatch 11/14/18 11/14/18 11/15/18 18:19 23:52 05:10 WBC 16.2 H RBC 3.22 L Hgb 8.8 L Hct 26.8 L D MCV 83 L MCH 27 L MCHC RDW 16.8 H Lymph % (Auto) [place] % (Auto) Eos % (Auto) [place] # Seg Neutrophils % Seg Neuts % (Manual) Lymphocytes % (Manual) Eosinophils % (Manual) Seg Neutrophils # Lymphocytes # (Manual) POC ABG pH POC ABG pO2 ABG pO2 ABG Base Excess ABG Hemoglobin Oxyhemoglobin Sodium Potassium Chloride Carbon Dioxide BUN Creatinine Glucose POC Glucose 213 H 242 H Lactic Acid Calcium AST ALT Alkaline Phosphatase Total Creatine Kinase CK-MB (CK-2) Troponin T NT-Pro-B Natriuret Pep Albumin Triglycerides LDL Cholesterol Direct HDL Cholesterol Urine WBC (Auto) Crossmatch 11/15/18 11/15/18 11/15/18 05:10 05:36 11:15 WBC RBC Hgb Hct MCV MCH MCHC RDW Lymph % (Auto) [place] % (Auto) Eos % (Auto) [place] # Seg Neutrophils % Seg Neuts % (Manual) Lymphocytes % (Manual) Eosinophils % (Manual) Seg Neutrophils # Lymphocytes # (Manual) POC ABG pH POC ABG pO2 ABG pO2 ABG Base Excess ABG Hemoglobin Oxyhemoglobin Sodium 148 H Potassium 3.5 L Chloride 112.8 H Carbon Dioxide BUN 51 H Creatinine Glucose 154 H POC Glucose 143 H 139 H Lactic Acid Calcium 7.8 L AST ALT Alkaline Phosphatase Total Creatine Kinase CK-MB (CK-2) Troponin T NT-Pro-B Natriuret Pep Albumin Triglycerides LDL Cholesterol Direct HDL Cholesterol Urine WBC (Auto) Crossmatch 11/15/18 11/15/18 11/15/18 12:00 18:28 20:56 WBC RBC Hgb Hct MCV MCH MCHC RDW Lymph % (Auto) [place] % (Auto) Eos % (Auto) [place] # Seg Neutrophils % Seg Neuts % (Manual) Lymphocytes % (Manual) Eosinophils % (Manual) Seg Neutrophils # Lymphocytes # (Manual) POC ABG pH POC ABG pO2 ABG pO2 ABG Base Excess ABG Hemoglobin Oxyhemoglobin Sodium 148 H Potassium 3.2 L Chloride 113.0 H Carbon Dioxide BUN 44 H Creatinine Glucose 144 H POC Glucose 159 H 150 H Lactic Acid Calcium 7.7 L AST ALT Alkaline Phosphatase Total Creatine Kinase CK-MB (CK-2) Troponin T NT-Pro-B Natriuret Pep Albumin Triglycerides LDL Cholesterol Direct HDL Cholesterol Urine WBC (Auto) Crossmatch 11/15/18 11/16/18 11/16/18 23:32 03:40 03:45 WBC 16.1 H RBC 3.30 L Hgb 8.9 L Hct 27.9 L MCV MCH 27 L MCHC RDW 17.5 H Lymph % (Auto) [place] % (Auto) Eos % (Auto) [place] # Seg Neutrophils % Seg Neuts % (Manual) Lymphocytes % (Manual) Eosinophils % (Manual) Seg Neutrophils # Lymphocytes # (Manual) POC ABG pH POC ABG pO2 ABG pO2 147.0 H ABG Base Excess ABG Hemoglobin 12.0 L Oxyhemoglobin Sodium Potassium Chloride Carbon Dioxide BUN Creatinine Glucose POC Glucose 131 H Lactic Acid Calcium AST ALT Alkaline Phosphatase Total Creatine Kinase CK-MB (CK-2) Troponin T NT-Pro-B Natriuret Pep Albumin Triglycerides LDL Cholesterol Direct HDL Cholesterol Urine WBC (Auto) Crossmatch 11/16/18 11/16/18 11/16/18 03:45 05:15 15:14 WBC RBC Hgb Hct MCV MCH MCHC RDW Lymph % (Auto) [place] % (Auto) Eos % (Auto) [place] # Seg Neutrophils % Seg Neuts % (Manual) Lymphocytes % (Manual) Eosinophils % (Manual) Seg Neutrophils # Lymphocytes # (Manual) POC ABG pH POC ABG pO2 ABG pO2 ABG Base Excess ABG Hemoglobin Oxyhemoglobin Sodium 149 H Potassium 3.5 L Chloride 116.2 H Carbon Dioxide 21 L BUN 41 H Creatinine Glucose 146 H POC Glucose 155 H 215 H Lactic Acid Calcium 7.7 L AST ALT Alkaline Phosphatase Total Creatine Kinase CK-MB (CK-2) Troponin T NT-Pro-B Natriuret Pep Albumin Triglycerides LDL Cholesterol Direct HDL Cholesterol Urine WBC (Auto) Crossmatch 11/16/18 11/16/18 11/17/18 18:20 23:49 04:49 WBC 12.1 H RBC 3.34 L Hgb 9.0 L Hct 28.1 L MCV MCH 27 L MCHC RDW 17.5 H Lymph % (Auto) [place] % (Auto) Eos % (Auto) [place] # Seg Neutrophils % Seg Neuts % (Manual) Lymphocytes % (Manual) Eosinophils % (Manual) Seg Neutrophils # Lymphocytes # (Manual) POC ABG pH POC ABG pO2 ABG pO2 ABG Base Excess ABG Hemoglobin Oxyhemoglobin Sodium Potassium Chloride Carbon Dioxide BUN Creatinine Glucose POC Glucose 230 H 189 H Lactic Acid Calcium AST ALT Alkaline Phosphatase Total Creatine Kinase CK-MB (CK-2) Troponin T NT-Pro-B Natriuret Pep Albumin Triglycerides LDL Cholesterol Direct HDL Cholesterol Urine WBC (Auto) Crossmatch 11/17/18 11/17/18 11/17/18 04:49 05:45 14:16 WBC RBC Hgb Hct MCV MCH MCHC RDW Lymph % (Auto) [place] % (Auto) Eos % (Auto) [place] # Seg Neutrophils % Seg Neuts % (Manual) Lymphocytes % (Manual) Eosinophils % (Manual) Seg Neutrophils # Lymphocytes # (Manual) POC ABG pH POC ABG pO2 ABG pO2 ABG Base Excess ABG Hemoglobin Oxyhemoglobin Sodium 150 H Potassium 3.2 L Chloride 118.9 H Carbon Dioxide 20 L BUN 38 H Creatinine 0.7 L Glucose 164 H POC Glucose 181 H 172 H Lactic Acid Calcium 7.7 L AST ALT Alkaline Phosphatase Total Creatine Kinase CK-MB (CK-2) Troponin T NT-Pro-B Natriuret Pep Albumin Triglycerides LDL Cholesterol Direct HDL Cholesterol Urine WBC (Auto) Crossmatch 11/17/18 11/17/18 11/18/18 23:36 Unknown 04:10 WBC RBC Hgb Hct MCV MCH MCHC RDW Lymph % (Auto) [place] % (Auto) Eos % (Auto) [place] # Seg Neutrophils % Seg Neuts % (Manual) Lymphocytes % (Manual) Eosinophils % (Manual) Seg Neutrophils # Lymphocytes # (Manual) POC ABG pH POC ABG pO2 ABG pO2 105.9 H 101.8 H ABG Base Excess -2.3 L -3.2 L ABG Hemoglobin 11.5 L 10.2 L Oxyhemoglobin Sodium Potassium Chloride Carbon Dioxide BUN Creatinine Glucose POC Glucose 214 H Lactic Acid Calcium AST ALT Alkaline Phosphatase Total Creatine Kinase CK-MB (CK-2) Troponin T NT-Pro-B Natriuret Pep Albumin Triglycerides LDL Cholesterol Direct HDL Cholesterol Urine WBC (Auto) Crossmatch 11/18/18 11/18/18 11/18/18 04:37 04:37 05:36 WBC RBC 3.10 L Hgb 8.5 L Hct 26.8 L MCV MCH 27 L MCHC RDW 17.8 H Lymph % (Auto) 12.8 L [place] % (Auto) 8.5 H Eos % (Auto) [place] # 0.9 H Seg Neutrophils % 75.8 H Seg Neuts % (Manual) Lymphocytes % (Manual) Eosinophils % (Manual) Seg Neutrophils # 8.0 H Lymphocytes # (Manual) POC ABG pH POC ABG pO2 ABG pO2 ABG Base Excess ABG Hemoglobin Oxyhemoglobin Sodium 148 H Potassium 3.3 L Chloride 118.3 H Carbon Dioxide 20 L BUN 32 H Creatinine 0.7 L Glucose 154 H POC Glucose 171 H Lactic Acid Calcium 7.4 L AST ALT Alkaline Phosphatase Total Creatine Kinase CK-MB (CK-2) Troponin T NT-Pro-B Natriuret Pep Albumin Triglycerides LDL Cholesterol Direct HDL Cholesterol Urine WBC (Auto) Crossmatch 11/18/18 11/18/18 11/18/18 12:10 17:27 23:56 WBC RBC Hgb Hct MCV MCH MCHC RDW Lymph % (Auto) [place] % (Auto) Eos % (Auto) [place] # Seg Neutrophils % Seg Neuts % (Manual) Lymphocytes % (Manual) Eosinophils % (Manual) Seg Neutrophils # Lymphocytes # (Manual) POC ABG pH POC ABG pO2 ABG pO2 ABG Base Excess ABG Hemoglobin Oxyhemoglobin Sodium Potassium Chloride Carbon Dioxide BUN Creatinine Glucose POC Glucose 244 H 239 H 241 H Lactic Acid Calcium AST ALT Alkaline Phosphatase Total Creatine Kinase CK-MB (CK-2) Troponin T NT-Pro-B Natriuret Pep Albumin Triglycerides LDL Cholesterol Direct HDL Cholesterol Urine WBC (Auto) Crossmatch 11/19/18 11/19/18 11/19/18 03:45 04:27 06:37 WBC RBC Hgb Hct MCV MCH MCHC RDW Lymph % (Auto) [place] % (Auto) Eos % (Auto) [place] # Seg Neutrophils % Seg Neuts % (Manual) Lymphocytes % (Manual) Eosinophils % (Manual) Seg Neutrophils # Lymphocytes # (Manual) POC ABG pH POC ABG pO2 ABG pO2 95.5 H ABG Base Excess -4.0 L ABG Hemoglobin 5.9 L Oxyhemoglobin Sodium 147 H Potassium Chloride 119.2 H Carbon Dioxide 20 L BUN 28 H Creatinine 0.6 L Glucose 181 H POC Glucose 220 H Lactic Acid Calcium 7.6 L AST ALT Alkaline Phosphatase Total Creatine Kinase CK-MB (CK-2) Troponin T NT-Pro-B Natriuret Pep Albumin Triglycerides LDL Cholesterol Direct HDL Cholesterol Urine WBC (Auto) Crossmatch 11/19/18 11/19/18 11/19/18 06:41 11:27 17:31 WBC RBC 3.28 L Hgb 9.0 L Hct 28.2 L MCV MCH MCHC RDW 17.9 H Lymph % (Auto) [place] % (Auto) 11.0 H Eos % (Auto) [place] # 1.1 H Seg Neutrophils % Seg Neuts % (Manual) Lymphocytes % (Manual) Eosinophils % (Manual) Seg Neutrophils # Lymphocytes # (Manual) POC ABG pH POC ABG pO2 ABG pO2 ABG Base Excess ABG Hemoglobin Oxyhemoglobin Sodium Potassium Chloride Carbon Dioxide BUN Creatinine Glucose POC Glucose 280 H 300 H Lactic Acid Calcium AST ALT Alkaline Phosphatase Total Creatine Kinase CK-MB (CK-2) Troponin T NT-Pro-B Natriuret Pep Albumin Triglycerides LDL Cholesterol Direct HDL Cholesterol Urine WBC (Auto) Crossmatch 11/19/18 11/20/18 11/20/18 23:30 03:03 03:03 WBC RBC 3.04 L Hgb 8.4 L Hct 26.1 L MCV MCH MCHC RDW 18.1 H Lymph % (Auto) [place] % (Auto) 11.0 H Eos % (Auto) [place] # 0.9 H Seg Neutrophils % Seg Neuts % (Manual) Lymphocytes % (Manual) Eosinophils % (Manual) Seg Neutrophils # Lymphocytes # (Manual) POC ABG pH POC ABG pO2 ABG pO2 ABG Base Excess ABG Hemoglobin Oxyhemoglobin Sodium 148 H Potassium Chloride 117.4 H Carbon Dioxide BUN 24 H Creatinine 0.6 L Glucose 238 H POC Glucose 251 H Lactic Acid Calcium 7.9 L AST ALT Alkaline Phosphatase Total Creatine Kinase CK-MB (CK-2) Troponin T NT-Pro-B Natriuret Pep Albumin Triglycerides LDL Cholesterol Direct HDL Cholesterol Urine WBC (Auto) Crossmatch 11/20/18 11/20/18 11/20/18 04:20 05:15 12:21 WBC RBC Hgb Hct MCV MCH MCHC RDW Lymph % (Auto) [place] % (Auto) Eos % (Auto) [place] # Seg Neutrophils % Seg Neuts % (Manual) Lymphocytes % (Manual) Eosinophils % (Manual) Seg Neutrophils # Lymphocytes # (Manual) POC ABG pH POC ABG pO2 ABG pO2 91.3 H ABG Base Excess -2.6 L ABG Hemoglobin 8.3 L Oxyhemoglobin Sodium Potassium Chloride Carbon Dioxide BUN Creatinine Glucose POC Glucose 213 H 318 H Lactic Acid Calcium AST ALT Alkaline Phosphatase Total Creatine Kinase CK-MB (CK-2) Troponin T NT-Pro-B Natriuret Pep Albumin Triglycerides LDL Cholesterol Direct HDL Cholesterol Urine WBC (Auto) Crossmatch 11/20/18 11/20/18 11/20/18 18:01 20:50 23:36 WBC RBC Hgb Hct MCV MCH MCHC RDW Lymph % (Auto) [place] % (Auto) Eos % (Auto) [place] # Seg Neutrophils % Seg Neuts % (Manual) Lymphocytes % (Manual) Eosinophils % (Manual) Seg Neutrophils # Lymphocytes # (Manual) POC ABG pH POC ABG pO2 ABG pO2 90.8 H ABG Base Excess -2.1 L ABG Hemoglobin 13.4 L Oxyhemoglobin 94.9 L Sodium Potassium Chloride Carbon Dioxide BUN Creatinine Glucose POC Glucose 301 H 290 H Lactic Acid Calcium AST ALT Alkaline Phosphatase Total Creatine Kinase CK-MB (CK-2) Troponin T NT-Pro-B Natriuret Pep Albumin Triglycerides LDL Cholesterol Direct HDL Cholesterol Urine WBC (Auto) Crossmatch 11/21/18 11/21/18 11/21/18 03:09 03:09 05:10 WBC RBC 3.05 L Hgb 8.5 L Hct 26.1 L MCV MCH MCHC RDW 18.7 H Lymph % (Auto) [place] % (Auto) 12.2 H Eos % (Auto) [place] # 0.9 H Seg Neutrophils % Seg Neuts % (Manual) Lymphocytes % (Manual) Eosinophils % (Manual) Seg Neutrophils # Lymphocytes # (Manual) POC ABG pH POC ABG pO2 ABG pO2 ABG Base Excess ABG Hemoglobin Oxyhemoglobin Sodium 150 H Potassium 3.5 L Chloride 118.5 H Carbon Dioxide BUN 22 H Creatinine 0.6 L Glucose 279 H POC Glucose 307 H Lactic Acid Calcium 7.7 L AST ALT Alkaline Phosphatase Total Creatine Kinase CK-MB (CK-2) Troponin T NT-Pro-B Natriuret Pep Albumin Triglycerides LDL Cholesterol Direct HDL Cholesterol Urine WBC (Auto) Crossmatch 11/21/18 11/21/18 11/21/18 11:24 17:23 23:20 WBC RBC Hgb Hct MCV MCH MCHC RDW Lymph % (Auto) [place] % (Auto) Eos % (Auto) [place] # Seg Neutrophils % Seg Neuts % (Manual) Lymphocytes % (Manual) Eosinophils % (Manual) Seg Neutrophils # Lymphocytes # (Manual) POC ABG pH POC ABG pO2 ABG pO2 ABG Base Excess ABG Hemoglobin Oxyhemoglobin Sodium Potassium Chloride Carbon Dioxide BUN Creatinine Glucose POC Glucose 324 H 288 H 254 H Lactic Acid Calcium AST ALT Alkaline Phosphatase Total Creatine Kinase CK-MB (CK-2) Troponin T NT-Pro-B Natriuret Pep Albumin Triglycerides LDL Cholesterol Direct HDL Cholesterol Urine WBC (Auto) Crossmatch 11/22/18 11/22/18 11/22/18 03:50 05:43 06:10 WBC RBC 2.93 L Hgb 8.1 L Hct 25.2 L MCV MCH MCHC RDW 18.6 H Lymph % (Auto) [place] % (Auto) 10.9 H Eos % (Auto) 4.4 H [place] # 0.9 H Seg Neutrophils % Seg Neuts % (Manual) Lymphocytes % (Manual) Eosinophils % (Manual) Seg Neutrophils # Lymphocytes # (Manual) POC ABG pH POC ABG pO2 ABG pO2 94.6 H ABG Base Excess ABG Hemoglobin 6.5 L Oxyhemoglobin Sodium Potassium Chloride Carbon Dioxide BUN Creatinine Glucose POC Glucose 227 H Lactic Acid Calcium AST ALT Alkaline Phosphatase Total Creatine Kinase CK-MB (CK-2) Troponin T NT-Pro-B Natriuret Pep Albumin Triglycerides LDL Cholesterol Direct HDL Cholesterol Urine WBC (Auto) Crossmatch 11/22/18 11/22/18 11/22/18 06:10 11:35 17:07 WBC RBC Hgb Hct MCV MCH MCHC RDW Lymph % (Auto) [place] % (Auto) Eos % (Auto) [place] # Seg Neutrophils % Seg Neuts % (Manual) Lymphocytes % (Manual) Eosinophils % (Manual) Seg Neutrophils # Lymphocytes # (Manual) POC ABG pH POC ABG pO2 ABG pO2 ABG Base Excess ABG Hemoglobin Oxyhemoglobin Sodium 146 H Potassium 3.3 L Chloride 114.8 H Carbon Dioxide BUN 21 H Creatinine 0.5 L Glucose 214 H POC Glucose 262 H 205 H Lactic Acid Calcium 7.7 L AST ALT Alkaline Phosphatase Total Creatine Kinase CK-MB (CK-2) Troponin T NT-Pro-B Natriuret Pep Albumin Triglycerides LDL Cholesterol Direct HDL Cholesterol Urine WBC (Auto) Crossmatch 11/22/18 11/23/18 11/23/18 23:23 05:35 06:48 WBC RBC 2.90 L Hgb 8.0 L Hct 25.1 L MCV MCH MCHC RDW 18.7 H Lymph % (Auto) [place] % (Auto) 8.7 H Eos % (Auto) 4.5 H [place] # Seg Neutrophils % Seg Neuts % (Manual) Lymphocytes % (Manual) Eosinophils % (Manual) Seg Neutrophils # Lymphocytes # (Manual) POC ABG pH POC ABG pO2 ABG pO2 ABG Base Excess ABG Hemoglobin Oxyhemoglobin Sodium Potassium Chloride Carbon Dioxide BUN Creatinine Glucose POC Glucose 165 H 140 H Lactic Acid Calcium AST ALT Alkaline Phosphatase Total Creatine Kinase CK-MB (CK-2) Troponin T NT-Pro-B Natriuret Pep Albumin Triglycerides LDL Cholesterol Direct HDL Cholesterol Urine WBC (Auto) Crossmatch 11/23/18 06:48 WBC RBC Hgb Hct MCV MCH MCHC RDW Lymph % (Auto) [place] % (Auto) Eos % (Auto) [place] # Seg Neutrophils % Seg Neuts % (Manual) Lymphocytes % (Manual) Eosinophils % (Manual) Seg Neutrophils # Lymphocytes # (Manual) POC ABG pH POC ABG pO2 ABG pO2 ABG Base Excess ABG Hemoglobin Oxyhemoglobin Sodium 146 H Potassium Chloride 115.4 H Carbon Dioxide BUN Creatinine 0.4 L Glucose 144 H POC Glucose Lactic Acid Calcium 7.8 L AST ALT Alkaline Phosphatase Total Creatine Kinase CK-MB (CK-2) Troponin T NT-Pro-B Natriuret Pep Albumin Triglycerides LDL Cholesterol Direct HDL Cholesterol Urine WBC (Auto) Crossmatch Allied health notes reviewed: nursing
--- NOTE | 2018-11-23 14:42 | Progress Note ---
Assessment and Plan Assessment and plan: Acute on chronic resp failure Cont. tracheostomy care, secretion control and airway mangement Pulmonology following Severe Sepsis with septic shock due to VRE off vasopressors Blood cultures Enterococcus Faecium 4 of 4 bottles ID Physician following Continue antibiotics per ID recommendations, Zyvox 600 mg twice a day for total of 14 day Sacral decub ulcer. Appreciate general surgery recommendations. Diabetes mellitus type 2 Fingerstick q4h Anemia s/p 2 Units PRBC stool occult blood neg Hypertension by history. Monitor History of chronic hypoxic encephalopathy Hyperlipidemia Hypernatremia Hypokalemia Replete as needed Full code status Poor prognosis. I had a long discussion with the who wants to continue full supportive and aggressive care. Surgery also had a discussion with the with regards to debridement of his wound. Disposition. seeking LTAC placement The high probability of a clinically significant, sudden or life threatening deterioration of the respiratory and immunologic system(s) required my full and direct attention, intervention and personal management. The aggregate critical care time was [31] minutes. This time is in addition to time spent performing reported procedures but includes the following: [x] Data Review and interpretation [x] Patient assessment and monitoring of vital signs [x] Documentation [x] Medication orders and management History Interval history: Patient is 77 yo resident at [facility] with chronic resp failure s/p trach, diabetes, BPH,hypertension, chronic hypoxic encephalopatyhy. He was sent to ED from shelter facility because of difficulty breathing, respiratory distress. He was seen and evaluated in ED and duagnosed with acute on chronic respiratory failure failure and hypotension. He was put on ventilator since he already had a tracheostomy. He was diagnosed with sepsis with septic shock, started on iv Abx and previously required pressors which are off now Hospitalist Physical - Constitutional Vitals: Temp Pulse Resp BP Pulse Ox 96.8 F L 83 11 L 150/63 99 11/23/18 12:00 11/23/18 13:01 11/23/18 13:01 11/23/18 13:01 11/23/18 13:01 General appearance: Present: no acute distress, well-nourished, other (intubated on vent) - EENT Eyes: Present: PERRL, EOM intact ENT: hearing intact, clear oral mucosa, dentition normal - Neck Neck: Present: supple, normal ROM - Respiratory Respiratory effort: normal Respiratory: bilateral: CTA - Cardiovascular Rhythm: regular Heart Sounds: Present: S1 & S2. Absent: gallop, rub - Extremities Extremities: no ischemia, No edema, Full ROM Extremity abnormal: other (amputation) - Abdominal General gastrointestinal: soft, non-tender, non-distended, normal bowel sounds - Integumentary Integumentary: Present: clear, warm, dry - Neurologic Neurologic: CNII-XII intact, moves all extremities Results - Labs CBC & Chem 7: 11/23/18 06:48 11/23/18 06:48 Labs: Laboratory Last Values WBC 7.8 K/mm3 (4.5-11.0) 11/23/18 06:48 RBC 2.90 M/mm3 (3.65-5.03) L 11/23/18 06:48 Hgb 8.0 gm/dl (11.8-15.2) L 11/23/18 06:48 Hct 25.1 % (35.5-45.6) L 11/23/18 06:48 MCV 86 fl (84-94) 11/23/18 06:48 MCH 28 pg (28-32) 11/23/18 06:48 MCHC 32 % (32-34) 11/23/18 06:48 RDW 18.7 % (13.2-15.2) H 11/23/18 06:48 Plt Count 194 K/mm3 (140-440) 11/23/18 06:48 Lymph % (Auto) 22.4 % (13.4-35.0) 11/23/18 06:48 [place] % (Auto) 8.7 % (0.0-7.3) H 11/23/18 06:48 Eos % (Auto) 4.5 % (0.0-4.3) H 11/23/18 06:48 Baso % (Auto) 0.6 % (0.0-1.8) 11/23/18 06:48 Lymph # 1.7 K/mm3 (1.2-5.4) 11/23/18 06:48 [place] # 0.7 K/mm3 (0.0-0.8) 11/23/18 06:48 Eos # 0.3 K/mm3 (0.0-0.4) 11/23/18 06:48 Baso # 0.0 K/mm3 (0.0-0.1) 11/23/18 06:48 Add Manual Diff Complete 11/13/18 14:00 Total Counted 100 11/13/18 14:00 Seg Neutrophils % 63.8 % (40.0-70.0) 11/23/18 06:48 Seg Neuts % (Manual) 87.0 % (40.0-70.0) H 11/13/18 14:00 0 % 11/13/18 14:00 5.0 % (13.4-35.0) L 11/13/18 14:00 Reactive Lymphs % (Man) 0 % 11/13/18 14:00 1.0 % (0.0-7.3) 11/13/18 14:00 7.0 % (0.0-4.3) H 11/13/18 14:00 0 % (0.0-1.8) 11/13/18 14:00 0 % 11/13/18 14:00 0 % 11/13/18 14:00 0 % 11/13/18 14:00 0 % 11/13/18 14:00 Nucleated RBC % Not Reportable 11/13/18 14:00 Seg Neutrophils # 5.0 K/mm3 (1.8-7.7) 11/23/18 06:48 Seg Neutrophils # Man 3.3 K/mm3 (1.8-7.7) 11/13/18 14:00 Band Neutrophils # 0.0 K/mm3 11/13/18 14:00 0.2 K/mm3 (1.2-5.4) L 11/13/18 14:00 Abs React Lymphs (Man) 0.0 K/mm3 11/13/18 14:00 0.0 K/mm3 (0.0-0.8) 11/13/18 14:00 0.3 K/mm3 (0.0-0.4) 11/13/18 14:00 0.0 K/mm3 (0.0-0.1) 11/13/18 14:00 0.0 K/mm3 11/13/18 14:00 0.0 K/mm3 11/13/18 14:00 0.0 K/mm3 11/13/18 14:00 Blast Cells # 0.0 K/mm3 11/13/18 14:00 WBC Morphology Not Reportable 11/13/18 14:00 Hypersegmented Neuts Not Reportable 11/13/18 14:00 Hyposegmented Neuts Not Reportable 11/13/18 14:00 Hypogranular Neuts Not Reportable 11/13/18 14:00 Not Reportable 11/13/18 14:00 Not Reportable 11/13/18 14:00 Not Reportable 11/13/18 14:00 Not Reportable 11/13/18 14:00 Not Reportable 11/13/18 14:00 Not Reportable 11/13/18 14:00 Consistent w auto 11/13/18 14:00 Not Reportable 11/13/18 14:00 Plt Clumps, EDTA Not Reportable 11/13/18 14:00 Not Reportable 11/13/18 14:00 Not Reportable 11/13/18 14:00 Not Reportable 11/13/18 14:00 Plt Morphology Comment Not Reportable 11/13/18 14:00 RBC Morphology Not Reportable 11/13/18 14:00 Dimorphic RBCs Not Reportable 11/13/18 14:00 Few 11/13/18 14:00 Not Reportable 11/13/18 14:00 Few 11/13/18 14:00 1+ 11/13/18 14:00 Not Reportable 11/13/18 14:00 Not Reportable 11/13/18 14:00 Few 11/13/18 14:00 Not Reportable 11/13/18 14:00 Not Reportable 11/13/18 14:00 Not Reportable 11/13/18 14:00 Not Reportable 11/13/18 14:00 Not Reportable 11/13/18 14:00 Not Reportable 11/13/18 14:00 Not Reportable 11/13/18 14:00 Not Reportable 11/13/18 14:00 Not Reportable 11/13/18 14:00 Not Reportable 11/13/18 14:00 Not Reportable 11/13/18 14:00 Not Reportable 11/13/18 14:00 Acanthocytes (Spur) Not Reportable 11/13/18 14:00 Rouleaux Not Reportable 11/13/18 14:00 Not Reportable 11/13/18 14:00 Not Reportable 11/13/18 14:00 Not Reportable 11/13/18 14:00 Not Reportable 11/13/18 14:00 Hem Pathologist Commnt No 11/13/18 14:00 POC ABG pH 7.414 (7.35-7.45) 11/23/18 05: ABG pH 7.398 pH Units (7.350-7.450) 11/22/18 03:50 POC ABG pCO2 35.8 (35-45) 11/23/18 05: ABG pCO2 38.8 mm Hg 11/22/18 03:50 POC ABG pO2 93 (80-105) 11/23/18 05: ABG pO2 94.6 mm Hg (80.0-90.0) H 11/22/18 03:50 POC ABG HCO3 22.9 (22-26 mml/L) 11/23/18 05: ABG HCO3 23.4 mmol/L (20.0-26.0) 11/22/18 03:50 POC ABG Total CO2 24 (23-27mmol/L) 11/23/18 05:26 POC ABG O2 Sat 97 11/23/18 05:26 ABG O2 Saturation 97.4 % (95.0-99.0) 11/22/18 03:50 ABG O2 Content 8.8 (0.0-44) 11/22/18 03:50 POC ABG Base Excess -2 ((-2) - (+3)mmol/L) 11/23/18 05:26 ABG Base Excess -1.3 mmol/L (-2.0-3.0) 11/22/18 03:50 ABG Hemoglobin 6.5 gm/dl (14.0-18.0) L 11/22/18 03:50 ABG Carboxyhemoglobin 1.9 % (0.0-5.0) 11/22/18 03:50 ABG Methemoglobin 0.5 % (0.0-1.5) 11/22/18 03:50 95.1 % (95.0-99.0) 11/22/18 03:50 25 % 11/23/18 05:26 Sodium 146 mmol/L (137-145) H 11/23/18 06:48 Potassium 3.8 mmol/L (3.6-5.0) 11/23/18 06:48 Chloride 115.4 mmol/L (98-107) H 11/23/18 06:48 Carbon Dioxide 23 mmol/L (22-30) 11/23/18 06:48 11 mmol/L 11/23/18 06:48 BUN 18 mg/dL (9-20) 11/23/18 06:48 0.4 mg/dL (0.8-1.5) L 11/23/18 06:48 Estimated GFR > 60 ml/min 11/23/18 06:48 45 % 11/23/18 06:48 Glucose 144 mg/dL (75-100) H 11/23/18 06:48 POC Glucose 140 (70-105) H 11/23/18 05:35 Lactic Acid 1.60 mmol/L (0.7-2.0) 11/14/18 12:50 Calcium 7.8 mg/dL (8.4-10.2) L 11/23/18 06:48 Magnesium 2.10 mg/dL (1.7-2.3) 11/15/18 12:00 0.70 mg/dL (0.1-1.2) 11/13/18 14:00 AST 154 units/L (5-40) H 11/13/18 14:00 ALT 134 units/L (7-56) H 11/13/18 14:00 586 units/L (35-129) H 11/13/18 14:00 510 units/L (55-170) H 11/13/18 14:49 CK-MB (CK-2) 4.4 ng/mL (0.0-4.0) H 11/13/18 14:49 CK-MB (CK-2) Rel Index 0.8 (0-4) 11/13/18 14:49 0.348 ng/mL (0.00-0.029) H* 11/13/18 14:49 NT-Pro-B Natriuret Pep 3679 pg/mL (0-900) H 11/13/18 14:49 6.8 g/dL (6.3-8.2) 11/13/18 14:00 1.2 g/dL (3.9-5) L 11/13/18 14:00 0.2 % 11/13/18 14:00 Triglycerides 284 mg/dL (2-149) H 11/13/18 14:49 Cholesterol 56 mg/dL (50-199) 11/13/18 14:49 4 mg/dL (50-130) L 11/13/18 14:49 7 mg/dL (40-59) L 11/13/18 14:49 8.00 % 11/13/18 14:49 Yellow (Yellow) 11/13/18 14:44 Slightly-cloudy (Clear) 11/13/18 14:44 6.0 (5.0-7.0) 11/13/18 14:44 Ur Specific [place] 1.017 (1.003-1.030) 11/13/18 14:44 30 mg/dl mg/dL (Negative) 11/13/18 14:44 Neg mg/dL (Negative) 11/13/18 14:44 Neg mg/dL (Negative) 11/13/18 14:44 Neg (Negative) 11/13/18 14:44 Neg (Negative) 11/13/18 14:44 Neg (Negative) 11/13/18 14:44 4.0 mg/dL (<2.0) 11/13/18 14:44 Ur Leukocyte Esterase Mod (Negative) 11/13/18 14:44 36.0 /HPF (0.0-6.0) H 11/13/18 14:44 21.0 /HPF (0.0-6.0) 11/13/18 14:44 1+ /HPF (Negative) 11/13/18 14:44 Few /HPF 11/13/18 14:44 3+ /HPF 11/13/18 14:44 Hepatitis A IgM Ab Non-reactive (NonReactive) 11/14/18 02:00 Hep Bs Antigen Non-reactive (Negative) 11/14/18 02:00 Hep B Core IgM Ab Non-reactive (NonReactive) 11/14/18 02:00 Non-reactive (NonReactive) 11/14/18 02:00 HIV 1&2 Antibody Rapid Non react (Non React) 11/14/18 02:00 Non react (Non React) 11/14/18 02:00 Blood Type O POSITIVE 11/13/18 14:49 Antibody Screen Negative 11/13/18 14:49 Crossmatch See Detail 11/13/18 14:49 Active Medications - Current Medications Current Medications: Generic Name Dose Route Start Last Admin Trade Name Freq PRN Reason Stop Dose Admin Albuterol 2.5 mg 11/19/18 17:21 Proventil IH Q6HRT PRN Shortness Of Breath Amlodipine Besylate 5 mg 11/20/18 13:00 11/23/18 10:38 Norvasc PO 5 mg QDAY LENCHO Administration Lipase/Protease/Amylase 1 each 11/14/18 14:20 Pancreaze 10,500 Unit FEEDTUBE PRN PRN For Clogged Feeding Tube Heparin Sodium (Porcine) 5,000 unit 11/14/18 03:30 11/23/18 10:37 Heparin SUB-Q 5,000 unit Q12HR LENCHO Administration Hydralazine HCl 10 mg 11/20/18 12:30 11/20/18 12:26 Apresoline IV 10 mg Q4H PRN Administration Blood Pressure Insulin Glargine 20 units 11/23/18 22:00 Lantus SUB-Q QHS LENCHO Insulin Human Lispro 0 unit 11/14/18 06:00 11/23/18 12:16 Humalog SUB-Q 2 unit Q6HR LENCHO Administration Protocol Lansoprazole 30 mg 11/16/18 10:00 11/23/18 10:38 Prevacid Solutab FEEDTUBE 30 mg QDAY LENCHO Administration Linezolid 600 mg 11/19/18 10:00 11/23/18 10:38 Zyvox PO 600 mg BID LENCHO Administration Scopolamine 1 each 11/19/18 15:00 11/22/18 16:00 Transderm-Scop TD 1 each Q3D LENCHO Administration Simple Syrup 15 ml 11/14/18 14:20 Simple Syrup FEEDTUBE PRN PRN Hypoglycemia Simple Syrup 30 ml 11/14/18 14:20 Simple Syrup FEEDTUBE PRN PRN Hypoglycemia Sodium Bicarbonate 325 mg 11/14/18 14:20 Sodium Bicarbonate FEEDTUBE PRN PRN For Clogged Feeding Tube Sodium Hypochlorite 1 applic 11/16/18 13:00 11/23/18 10:39 Dakin's Half Strength TP 1 applicatio BID LENCHO Administration Nutrition/Malnutrition Assess - Dietary Evaluation Nutrition/Malnutrition Findings: Nutrition Notes Start: 11/14/18 10:33 Freq: Status: Active Protocol: Document 11/20/18 11:55 LM (Rec: 11/20/18 12:03 LM [id number]) Nutrition Notes Initial or Follow up Reassessment Current Diagnosis Acute Kidney Injury,Decubitus( Pressure Ulcer),Diabetes, Sepsis,Hypertension,Heart Failure,Respiratory Failure, Stroke Other Pertinent Diagnosis sacral wound, UTI, Dysphagia, Chronic encephalopathy Current Diet Vital AF 1.2 at 60 ml/hr Labs/Tests NA 148 Cr 0.6 BUN 24 BG 238 Pertinent Medications Humalog Height 5 ft 9 in Weight 84 kg [place] Body Weight (kg) 72.72 BMI 27.3 Subjective/Other Information TF running at 60 ml/hr. Pt tolerating TF. Percent of energy/protein needs met: 93%/100% Burn Absent Trauma Absent #1 Nutrition Diagnosis Inadequate oral intake Diagnosis Progress(for reassessment Continues documentation) Is patient on ventilator? Yes Is Patient Ambulatory and/or Out of Bed No REE-([facility]-confined to bed) 2446.936 Calculation Used for Recommendations [facility] Additional Notes Pro needs 1.2-2g/k-168g/ day Fluid needs 1ml/kcal Nutrition Intervention Change Diet Order: Continue TF Nutrition Support: Vital AF 1.2 at 60ml/hr with 100ml water flush q4h. Kcal 1,728 Protein (gm) 108 Carbohydrates (gm) 159 Fat (gm) 78 Fluid (mL) 1,168 Fiber (gm) 7 Goal #1 TF tolerance Goal #2 TF to meet at least 75% of energy and protein needs Anticipated Discharge Needs: Continue TF Follow-Up By: 11/24/18 Additional Comments F/U for TF tolerance and rate
[2018-11-24] MEDS: HumaLOG SUB-Q SCH ×5 (00:22→23:52)
[2018-11-24] MEDS ORDERED: VASELINE LIP THERAPY TP PRN (08:23)
--- NOTE | 2018-11-24 08:34 | Progress Note ---
Assessment and Plan Assessment and plan: Acute on chronic resp failure Cont. tracheostomy care, secretion control and airway mangement Pulmonology following Severe Sepsis with septic shock due to VRE off vasopressors Blood cultures Enterococcus Faecium 4 of 4 bottles ID Physician following Continue antibiotics per ID recommendations, Zyvox 600 mg twice a day for total of 14 day Sacral decub ulcer. Appreciate general surgery recommendations. considering surgery Diabetes mellitus type 2 Fingerstick q4h Anemia s/p 2 Units PRBC stool occult blood neg Hypertension by history. Monitor History of chronic hypoxic encephalopathy Hyperlipidemia Hypernatremia Hypokalemia Replete as needed Full code status Poor prognosis. I had a long discussion with the who wants to continue full supportive and aggressive care. Surgery also had a discussion with the with regards to debridement of his wound. Today, 11/24/18, tells me she has not decided on surgery yet. Disposition. seeking LTAC placement The high probability of a clinically significant, sudden or life threatening deterioration of the respiratory and immunologic system(s) required my full and direct attention, intervention and personal management. The aggregate critical care time was [32] minutes. This time is in addition to time spent performing reported procedures but includes the following: [x] Data Review and interpretation [x] Patient assessment and monitoring of vital signs [x] Documentation [x] Medication orders and management History Interval history: Still unresponsive considering debridement surgery sacral ulcer Hospitalist Physical - Physical exam Narrative exam: Gen: Not in acute distress, lying in bed, ill looking HEENT: Normocephalic, atraumatic, tracheostomy to ventilator Neck: supple, no JVD,trach Heart: S1 and S2 reg, no murmurs, rubs or gallop Lungs: Clear, no crackles, no rhonchi Abd: soft, non tender, non distended, normal BS, PEG tube Ext: No edema, no clubbing, no cyanosis Neuro: Unresponsive, Does not follow commands Sacral:sacral decub ulcer - Constitutional Vitals: Temp Pulse Resp BP Pulse Ox 97.3 F L 57 L 12 154/66 98 11/24/18 08:00 11/24/18 06:31 11/24/18 06:31 11/24/18 06:31 11/24/18 06:31 General appearance: Present: no acute distress, obese, other (intubated on vent) Results - Labs CBC & Chem 7: 08/26/19 06:48 11/23/18 06:48 Labs: Laboratory Last Values WBC 7.8 K/mm3 (4.5-11.0) 11/23/18 06:48 RBC 2.90 M/mm3 (3.65-5.03) L 11/23/18 06:48 Hgb 8.0 gm/dl (11.8-15.2) L 11/23/18 06:48 Hct 25.1 % (35.5-45.6) L 11/23/18 06:48 MCV 86 fl (84-94) 11/23/18 06:48 MCH 28 pg (28-32) 11/23/18 06:48 MCHC 32 % (32-34) 11/23/18 06:48 RDW 18.7 % (13.2-15.2) H 11/23/18 06:48 Plt Count 194 K/mm3 (140-440) 11/23/18 06:48 Lymph % (Auto) 22.4 % (13.4-35.0) 11/23/18 06:48 [place] % (Auto) 8.7 % (0.0-7.3) H 11/23/18 06:48 Eos % (Auto) 4.5 % (0.0-4.3) H 11/23/18 06:48 Baso % (Auto) 0.6 % (0.0-1.8) 11/23/18 06:48 Lymph # 1.7 K/mm3 (1.2-5.4) 11/23/18 06:48 [place] # 0.7 K/mm3 (0.0-0.8) 11/23/18 06:48 Eos # 0.3 K/mm3 (0.0-0.4) 11/23/18 06:48 Baso # 0.0 K/mm3 (0.0-0.1) 11/23/18 06:48 Add Manual Diff Complete 11/13/18 14:00 Total Counted 100 11/13/18 14:00 Seg Neutrophils % 63.8 % (40.0-70.0) 11/23/18 06:48 Seg Neuts % (Manual) 87.0 % (40.0-70.0) H 11/13/18 14:00 0 % 11/13/18 14:00 5.0 % (13.4-35.0) L 11/13/18 14:00 Reactive Lymphs % (Man) 0 % 11/13/18 14:00 1.0 % (0.0-7.3) 11/13/18 14:00 7.0 % (0.0-4.3) H 11/13/18 14:00 0 % (0.0-1.8) 11/13/18 14:00 0 % 11/13/18 14:00 0 % 11/13/18 14:00 0 % 11/13/18 14:00 0 % 11/13/18 14:00 Nucleated RBC % Not Reportable 11/13/18 14:00 Seg Neutrophils # 5.0 K/mm3 (1.8-7.7) 11/23/18 06:48 Seg Neutrophils # Man 3.3 K/mm3 (1.8-7.7) 11/13/18 14:00 Band Neutrophils # 0.0 K/mm3 11/13/18 14:00 0.2 K/mm3 (1.2-5.4) L 11/13/18 14:00 Abs React Lymphs (Man) 0.0 K/mm3 11/13/18 14:00 0.0 K/mm3 (0.0-0.8) 11/13/18 14:00 0.3 K/mm3 (0.0-0.4) 11/13/18 14:00 0.0 K/mm3 (0.0-0.1) 11/13/18 14:00 0.0 K/mm3 11/13/18 14:00 0.0 K/mm3 11/13/18 14:00 0.0 K/mm3 11/13/18 14:00 Blast Cells # 0.0 K/mm3 11/13/18 14:00 WBC Morphology Not Reportable 11/13/18 14:00 Hypersegmented Neuts Not Reportable 11/13/18 14:00 Hyposegmented Neuts Not Reportable 11/13/18 14:00 Hypogranular Neuts Not Reportable 11/13/18 14:00 Not Reportable 11/13/18 14:00 Not Reportable 11/13/18 14:00 Not Reportable 11/13/18 14:00 Not Reportable 11/13/18 14:00 Not Reportable 11/13/18 14:00 Not Reportable 11/13/18 14:00 Consistent w auto 11/13/18 14:00 Not Reportable 11/13/18 14:00 Plt Clumps, EDTA Not Reportable 11/13/18 14:00 Not Reportable 11/13/18 14:00 Not Reportable 11/13/18 14:00 Not Reportable 11/13/18 14:00 Plt Morphology Comment Not Reportable 11/13/18 14:00 RBC Morphology Not Reportable 11/13/18 14:00 Dimorphic RBCs Not Reportable 11/13/18 14:00 Few 11/13/18 14:00 Not Reportable 11/13/18 14:00 Few 11/13/18 14:00 1+ 11/13/18 14:00 Not Reportable 11/13/18 14:00 Not Reportable 11/13/18 14:00 Few 11/13/18 14:00 Not Reportable 11/13/18 14:00 Not Reportable 11/13/18 14:00 Not Reportable 11/13/18 14:00 Not Reportable 11/13/18 14:00 Not Reportable 11/13/18 14:00 Not Reportable 11/13/18 14:00 Not Reportable 11/13/18 14:00 Not Reportable 11/13/18 14:00 Not Reportable 11/13/18 14:00 Not Reportable 11/13/18 14:00 Not Reportable 11/13/18 14:00 Not Reportable 11/13/18 14:00 Acanthocytes (Spur) Not Reportable 11/13/18 14:00 Rouleaux Not Reportable 11/13/18 14:00 Not Reportable 11/13/18 14:00 Not Reportable 11/13/18 14:00 Not Reportable 11/13/18 14:00 Not Reportable 11/13/18 14:00 Hem Pathologist Commnt No 11/13/18 14:00 POC ABG pH 7.414 (7.35-7.45) 11/23/18 05:26 ABG pH 7.398 pH Units (7.350-7.450) 11/22/18 03:50 POC ABG pCO2 35.8 (35-45) 11/23/18 05:26 ABG pCO2 38.8 mm Hg 11/22/18 03:50 POC ABG pO2 93 (80-105) 11/23/18 05:26 ABG pO2 94.6 mm Hg (80.0-90.0) H 11/22/18 03:50 POC ABG HCO3 22.9 (22-26 mml/L) 11/23/18 05: ABG HCO3 23.4 mmol/L (20.0-26.0) 11/22/18 03:50 POC ABG Total CO2 24 (23-27mmol/L) 11/23/18 05:26 POC ABG O2 Sat 97 11/23/18 05:26 ABG O2 Saturation 97.4 % (95.0-99.0) 11/22/18 03:50 ABG O2 Content 8.8 (0.0-44) 11/22/18 03:50 POC ABG Base Excess -2 ((-2) - (+3)mmol/L) 11/23/18 05:26 ABG Base Excess -1.3 mmol/L (-2.0-3.0) 11/22/18 03:50 ABG Hemoglobin 6.5 gm/dl (14.0-18.0) L 11/22/18 03:50 ABG Carboxyhemoglobin 1.9 % (0.0-5.0) 11/22/18 03:50 ABG Methemoglobin 0.5 % (0.0-1.5) 11/22/18 03:50 95.1 % (95.0-99.0) 11/22/18 03:50 25 % 11/23/18 05:26 Sodium 146 mmol/L (137-145) H 11/23/18 06:48 Potassium 3.8 mmol/L (3.6-5.0) 11/23/18 06:48 Chloride 115.4 mmol/L (98-107) H 11/23/18 06:48 Carbon Dioxide 23 mmol/L (22-30) 11/23/18 06:48 11 mmol/L 11/23/18 06:48 BUN 18 mg/dL (9-20) 11/23/18 06:48 0.4 mg/dL (0.8-1.5) L 11/23/18 06:48 Estimated GFR > 60 ml/min 11/23/18 06:48 45 % 11/23/18 06:48 Glucose 144 mg/dL (75-100) H 11/23/18 06:48 POC Glucose 137 (70-105) H 11/24/18 05:38 Lactic Acid 1.60 mmol/L (0.7-2.0) 11/14/18 12:50 Calcium 7.8 mg/dL (8.4-10.2) L 11/23/18 06:48 Magnesium 2.10 mg/dL (1.7-2.3) 11/15/18 12:00 0.70 mg/dL (0.1-1.2) 11/13/18 14:00 AST 154 units/L (5-40) H 11/13/18 14:00 ALT 134 units/L (7-56) H 11/13/18 14:00 586 units/L (35-129) H 11/13/18 14:00 510 units/L (55-170) H 11/13/18 14:49 CK-MB (CK-2) 4.4 ng/mL (0.0-4.0) H 11/13/18 14:49 CK-MB (CK-2) Rel Index 0.8 (0-4) 11/13/18 14:49 0.348 ng/mL (0.00-0.029) H* 11/13/18 14:49 NT-Pro-B Natriuret Pep 3679 pg/mL (0-900) H 11/13/18 14:49 6.8 g/dL (6.3-8.2) 11/13/18 14:00 1.2 g/dL (3.9-5) L 11/13/18 14:00 0.2 % 11/13/18 14:00 Triglycerides 284 mg/dL (2-149) H 11/13/18 14:49 Cholesterol 56 mg/dL (50-199) 11/13/18 14:49 4 mg/dL (50-130) L 11/13/18 14:49 7 mg/dL (40-59) L 11/13/18 14:49 8.00 % 11/13/18 14:49 Yellow (Yellow) 11/13/18 14:44 Slightly-cloudy (Clear) 11/13/18 14:44 6.0 (5.0-7.0) 11/13/18 14:44 Ur Specific [place] 1.017 (1.003-1.030) 11/13/18 14:44 30 mg/dl mg/dL (Negative) 11/13/18 14:44 Neg mg/dL (Negative) 11/13/18 14:44 Neg mg/dL (Negative) 11/13/18 14:44 Neg (Negative) 11/13/18 14:44 Neg (Negative) 11/13/18 14:44 Neg (Negative) 11/13/18 14:44 4.0 mg/dL (<2.0) 11/13/18 14:44 Ur Leukocyte Esterase Mod (Negative) 11/13/18 14:44 36.0 /HPF (0.0-6.0) H 11/13/18 14:44 21.0 /HPF (0.0-6.0) 11/13/18 14:44 1+ /HPF (Negative) 11/13/18 14:44 Few /HPF 11/13/18 14:44 3+ /HPF 11/13/18 14:44 Hepatitis A IgM Ab Non-reactive (NonReactive) 11/14/18 02:00 Hep Bs Antigen Non-reactive (Negative) 11/14/18 02:00 Hep B Core IgM Ab Non-reactive (NonReactive) 11/14/18 02:00 Non-reactive (NonReactive) 11/14/18 02:00 HIV 1&2 Antibody Rapid Non react (Non React) 11/14/18 02:00 Non react (Non React) 11/14/18 02:00 Blood Type O POSITIVE 11/13/18 14:49 Antibody Screen Negative 11/13/18 14:49 Crossmatch See Detail 11/13/18 14:49 Active Medications - Current Medications Current Medications: Generic Name Dose Route Start Last Admin Trade Name Freq PRN Reason Stop Dose Admin Albuterol 2.5 mg 11/19/18 17:21 Proventil IH Q6HRT PRN Shortness Of Breath Amlodipine Besylate 5 mg 11/20/18 13:00 11/23/18 10:38 Norvasc PO 5 mg QDAY LENCHO Administration Lipase/Protease/Amylase 1 each 11/14/18 14:[address] 10,500 Unit FEEDTUBE PRN PRN For Clogged Feeding Tube Heparin Sodium (Porcine) 5,000 unit 11/14/18 03:30 11/23/18 20:59 Heparin SUB-Q 5,000 unit Q12HR LENCHO Administration Hydralazine HCl 10 mg 11/20/18 12:30 11/20/18 12:26 Apresoline IV 10 mg Q4H PRN Administration Blood Pressure Hydrophilic Ointment 1 applic 11/24/18 08:23 Vaseline Lip Therapy TP Q2HR PRN Dry Lips Insulin Glargine 20 units 11/23/18 22:00 11/23/18 22:20 Lantus SUB-Q 20 units QHS LENCHO Administration Insulin Human Lispro 0 unit 11/14/18 06:00 11/24/18 06:50 Humalog SUB-Q Not Given Q6HR [facility] Protocol Lansoprazole 30 mg 11/16/18 10:00 11/23/18 10:38 Prevacid Solutab FEEDTUBE 30 mg QDAY LENCHO Administration Linezolid 600 mg 11/19/18 10:00 11/23/18 20:59 Zyvox PO 11/29/18 23:59 600 mg BID LENCHO Administration Multi-Ingred Cream/Lotion/Oil/Oint 1 applic 11/24/18 08:23 Artificial Tears Ophth Oint OU Q4HR PRN Dry Eye(s) Scopolamine 1 each 11/19/18 15:00 11/22/18 16:00 Transderm-Scop TD 1 each Q3D LENCHO Administration Simple Syrup 15 ml 11/14/18 14:20 Simple Syrup FEEDTUBE PRN PRN Hypoglycemia Simple Syrup 30 ml 11/14/18 14:20 Simple Syrup FEEDTUBE PRN PRN Hypoglycemia Sodium Bicarbonate 325 mg 11/14/18 14:20 Sodium Bicarbonate FEEDTUBE PRN PRN For Clogged Feeding Tube Sodium Hypochlorite 1 applic 11/16/18 13:00 11/23/18 20:59 Dakin's Half Strength TP 1 applicatio BID LENCHO Administration Nutrition/Malnutrition Assess - Dietary Evaluation Nutrition/Malnutrition Findings: Nutrition Notes Start: 11/14/18 10:33 Freq: Status: Active Protocol: Document 11/20/18 11:55 LM (Rec: 11/20/18 12:03 LM [id number]) Nutrition Notes Initial or Follow up Reassessment Current Diagnosis Acute Kidney Injury,Decubitus( Pressure Ulcer),Diabetes, Sepsis,Hypertension,Heart Failure,Respiratory Failure, Stroke Other Pertinent Diagnosis sacral wound, UTI, Dysphagia, Chronic encephalopathy Current Diet Vital AF 1.2 at 60 ml/hr Labs/Tests NA 148 Cr 0.6 BUN 24 BG 238 Pertinent Medications Humalog Height 5 ft 9 in Weight 84 kg [place] Body Weight (kg) 72.72 BMI 27.3 Subjective/Other Information TF running at 60 ml/hr. Pt tolerating TF. Percent of energy/protein needs met: 93%/100% Burn Absent Trauma Absent #1 Nutrition Diagnosis Inadequate oral intake Diagnosis Progress(for reassessment Continues documentation) Is patient on ventilator? Yes Is Patient Ambulatory and/or Out of Bed No REE-([facility]-confined to bed) [phone] Calculation Used for Recommendations [facility] Additional Notes Pro needs 1.2-2g/k-168g/ day Fluid needs 1ml/kcal Nutrition Intervention Change Diet Order: Continue TF Nutrition Support: Vital AF 1.2 at 60ml/hr with 100ml water flush q4h. Kcal 1,728 Protein (gm) 108 Carbohydrates (gm) 159 Fat (gm) 78 Fluid (mL) 1,168 Fiber (gm) 7 Goal #1 TF tolerance Goal #2 TF to meet at least 75% of energy and protein needs Anticipated Discharge Needs: Continue TF Follow-Up By: 11/24/18 Additional Comments F/U for TF tolerance and rate
--- NOTE | 2018-11-24 09:29 | Event Note ---
Date: 11/24/18 I spoke with Ms. Phelan this morning, who was in the patient's room at the time. I told her that I heard that she did not sign the permission form for debridement because she had not spoken to the surgeon yet. I reminded her that we sat down for 30 minutes to talk and I called her on the phone. She said that she had forgotten. When asked if she had made a decision about the debridement, she said "I still need a few more days to think about it". Based on my conversations with her, it appears to me that she does not want to make a decision about the debridement. At this point, we will be available if something changes. Please call us if the decides to have the debridement done. We still strongly recommend that palliative/hospice care be initiated. This patient will not benefit from a debridement. Please call with any questions.
[2018-11-24] MEDS: ZYVOX PO SCH ×2 (09:44→21:11)
[2018-11-24] MEDS: NORVASC PO SCH (09:44)
[2018-11-24] MEDS: PREVACID SOLUTAB FEEDTUBE SCH (09:44)
[2018-11-24] MEDS: HEPARIN SUB-Q SCH ×2 (09:44→21:11)
[2018-11-24] MEDS: DAKIN'S HALF STRENGTH TP SCH ×2 (09:45→21:28)
--- NOTE | 2018-11-24 13:03 | Progress Note ---
Assessment and Plan Acute on chronic hypoxemic respiratory failure on MVS Severe sepsis with shock, off vasopressors VRE bacteremia UTI Large sacaral decubitus ulcer Acute on chronic metabolic encephalopathy Orophargyngeal dysphagia s/p PEG h/o CVAs Transaminitis probably secondary to hypotension Type 2 DM Hypernatremia Hypokalemia - get ABG at 9-10 pm tonight and if acceptable will shoot for RTC t-piece as tolerated - surgeon spoke with his re: debridement and he is awaiting her decision - increased Lantus to 20 units SQ daily - continue amlodipine 5 mg p.o. daily - continue hydralazine 10 mg IV q4h prn SBP >/= 170 mmHg - repeat CXR prn at this time - continue scopolamine patch for secretion control - VAP bundle addressed - Trach care, airway clearance and secretion management - Lung protective strategies - Accuchecks with glycemic control, continue with insulin infusion per protocol - Douglass catheter for accurate intake and output monitoring in this critically ill patient with history of chronic douglass/urinary retention - Avoid nephrotoxins - VTE prophylaxis - Stress ulcer prophylaxis - Antibiotics per ID, de-escalate as indicated - Mobility and off loading for sacral decubitus - Wound care - Free water flushes and hypotonic solutions for hypernatremia - Optimize nutrition to help promote wound healing - Supportive transfusions as indicated, to keep HgB>7g/dL - Vasopressor support as indicated for MAP<65, with blood pressure unresponsive to volume resuscitation - Continue to monitor hemodynamics closely - Keep Potassium at 4, to optimize respiratory muscle function - LTAC evaluation is ongoing ... re-evaluate in am & prn Awaiting further family decisions re goals of care CONDITION: CRITICAL PROGNOSIS; POOR CODE STATUS: FULL Discussed care plan with RT and RN. Discussed during ICU-IDT rounds Goals of care need to be re-addressed with family The high probability of a clinically significant, sudden or life threatening deterioration of the respiratory, cardiovascular,endocrine, system(s) required my full and direct attention, intervention and personal management. The aggreg ate critical care time was [35] minutes. This time is in addition to time spent performing reported procedures but includes the following: [x] Data Review and interpretation [x]Patient assessment and monitoring of vital signs [x] Documentation [x] Medication orders and management Subjective Date of service: 11/24/18 Principal diagnosis: Severe sepsis with shock; Ac and ch resp failure; Metabolic encephalopathy Interval history: Patient is seen today for: Severe sepsis with septic shock; Acute and chronic respiratory failure on MVS; Acute and chronic metabolic encephalopathy; Seen and examined at bedside; 24hour events reviewed; nursing and respiratory care staff consulted; resting peacefully in bed; on T-piece and tolerating well; AMS is persistent; RT rested patient overnight on AC mode; back on t-piece now; no emesis or overt aspiration Objective Vital Signs - 12hr 11/24/18 11/24/18 11/24/18 01:31 02:01 02:31 Temperature Pulse Rate 60 59 L 61 Pulse Rate [ From Monitor] Respiratory 12 12 16 Rate Blood Pressure 147/64 147/64 142/60 O2 Sat by Pulse 98 97 98 Oximetry O2 Sat by Pulse Oximetry [ Assessment] 11/24/18 11/24/18 11/24/18 02:53 03:01 03:31 Temperature 98.8 F Pulse Rate 60 70 Pulse Rate [ From Monitor] Respiratory 13 17 Rate Blood Pressure 145/62 145/63 O2 Sat by Pulse 97 100 Oximetry O2 Sat by Pulse Oximetry [ Assessment] 11/24/18 11/24/18 11/24/18 04:00 04:01 04:30 Temperature Pulse Rate 61 61 59 L Pulse Rate [ 61 From Monitor] Respiratory 16 16 Rate Blood Pressure 145/63 146/67 O2 Sat by Pulse 97 97 100 Oximetry O2 Sat by Pulse Oximetry [ Assessment] 11/24/18 11/24/18 11/24/18 04:31 05:01 05:30 Temperature Pulse Rate 58 L 58 L 57 L Pulse Rate [ From Monitor] Respiratory 13 16 15 Rate Blood Pressure 146/67 156/69 145/62 O2 Sat by Pulse 98 98 100 Oximetry O2 Sat by Pulse Oximetry [ Assessment] 11/24/18 11/24/18 11/24/18 06:01 06:31 07:01 Temperature Pulse Rate 57 L 57 L 56 L Pulse Rate [ From Monitor] Respiratory 15 12 12 Rate Blood Pressure 159/66 154/66 154/66 O2 Sat by Pulse 98 98 98 Oximetry O2 Sat by Pulse Oximetry [ Assessment] 11/24/18 11/24/18 11/24/18 07:31 08:00 08:01 Temperature 97.3 F L Pulse Rate 57 L 58 L 57 L Pulse Rate [ 58 L From Monitor] Respiratory 13 16 13 Rate Blood Pressure 152/67 161/66 O2 Sat by Pulse 98 99 98 Oximetry O2 Sat by Pulse Oximetry [ Assessment] 11/24/18 11/24/18 11/24/18 08:31 08:40 08:56 Temperature Pulse Rate 57 L Pulse Rate [ From Monitor] Respiratory 15 Rate Blood Pressure 156/66 O2 Sat by Pulse 98 100 Oximetry O2 Sat by Pulse 99 Oximetry [ Assessment] 11/24/18 11/24/18 11/24/18 09:00 09:31 09:44 Temperature Pulse Rate 71 74 73 Pulse Rate [ From Monitor] Respiratory 10 L 12 Rate Blood Pressure 165/75 162/74 162/74 O2 Sat by Pulse 100 99 Oximetry O2 Sat by Pulse Oximetry [ Assessment] 11/24/18 11/24/18 11/24/18 10:00 10:31 11:00 Temperature Pulse Rate 73 77 83 Pulse Rate [ From Monitor] Respiratory 11 L 15 16 Rate Blood Pressure 155/75 160/72 131/73 O2 Sat by Pulse 99 97 94 Oximetry O2 Sat by Pulse Oximetry [ Assessment] 11/24/18 11/24/18 11/24/18 11:30 12:01 12:24 Temperature Pulse Rate 83 81 Pulse Rate [ From Monitor] Respiratory 22 17 Rate Blood Pressure 135/72 129/66 O2 Sat by Pulse 95 95 99 Oximetry O2 Sat by Pulse Oximetry [ Assessment] 11/24/18 12:30 Temperature Pulse Rate 81 Pulse Rate [ From Monitor] Respiratory 16 Rate Blood Pressure 137/66 O2 Sat by Pulse 97 Oximetry O2 Sat by Pulse Oximetry [ Assessment] Constitutional: no acute distress, other (elderly looking AAM on MVS; trach in place; no patient-ventilator dys-synchrony) Eyes: non-icteric ENT: oropharynx moist Neck: supple, no lymphadenopathy, no JVD, other (midline trach) Effort: mildly labored Ascultation: Bilateral: diminished breath sounds, rhonchi (scant in bases) Percussion: Bilateral: not dull Cardiovascular: regular rate and rhythm, other (S1,S2) Gastrointestinal: normoactive bowel sounds, soft, non-distended, other (PEG in place, chronic douglass catheter) Integumentary: decubitus ulcer (see wound care notes) Extremities: no cyanosis, pink and warm, pulses normal, edema (2+) Neurologic: unable to assess (on vent), other (encephalopathic, unresponsive) Psychiatric: other (unable to assess) CBC and BMP: 11/25/18 04:24 11/25/18 04:24 ABG, PT/INR, D-dimer: ABG POC ABG pH 7.414 (7.35-7.45) 11/23/18 05:26 ABG pH 7.398 pH Units (7.350-7.450) 11/22/18 03:50 POC ABG pCO2 35.8 (35-45) 11/23/18 05:26 ABG pCO2 38.8 mm Hg 11/22/18 03:50 POC ABG pO2 93 (80-105) 11/23/18 05:26 ABG pO2 94.6 mm Hg (80.0-90.0) H 11/22/18 03:50 POC ABG HCO3 22.9 (22-26 mml/L) 11/23/18 05:26 POC ABG Total CO2 24 (23-27mmol/L) 11/23/18 05:26 POC ABG O2 Sat 97 11/23/18 05:26 ABG O2 Saturation 97.4 % (95.0-99.0) 11/22/18 03:50 Abnormal lab findings: Abnormal Labs 11/13/18 11/13/18 11/13/18 03:30 14:00 14:00 WBC 3.8 L RBC 2.80 L Hgb 7.4 L Hct 22.9 L MCV 82 L MCH 27 L MCHC RDW 19.0 H Lymph % (Auto) [place] % (Auto) Eos % (Auto) [place] # Seg Neutrophils % Seg Neuts % (Manual) 87.0 H Lymphocytes % (Manual) 5.0 L Eosinophils % (Manual) 7.0 H Seg Neutrophils # Lymphocytes # (Manual) 0.2 L POC ABG pH POC ABG pO2 ABG pO2 ABG Base Excess ABG Hemoglobin Oxyhemoglobin Sodium 147 H Potassium Chloride Carbon Dioxide 33 H BUN 50 H Creatinine Glucose 193 H POC Glucose Lactic Acid 3.70 H* Calcium 8.1 L AST 154 H ALT 134 H Alkaline Phosphatase 586 H Total Creatine Kinase CK-MB (CK-2) Troponin T NT-Pro-B Natriuret Pep Albumin 1.2 L Triglycerides LDL Cholesterol Direct HDL Cholesterol Urine WBC (Auto) Crossmatch 11/13/18 11/13/18 11/13/18 14:00 14:44 14:49 WBC RBC Hgb Hct MCV MCH MCHC RDW Lymph % (Auto) [place] % (Auto) Eos % (Auto) [place] # Seg Neutrophils % Seg Neuts % (Manual) Lymphocytes % (Manual) Eosinophils % (Manual) Seg Neutrophils # Lymphocytes # (Manual) POC ABG pH POC ABG pO2 ABG pO2 ABG Base Excess ABG Hemoglobin Oxyhemoglobin Sodium Potassium Chloride Carbon Dioxide BUN Creatinine Glucose POC Glucose Lactic Acid 2.60 H* Calcium AST ALT Alkaline Phosphatase Total Creatine Kinase 510 H CK-MB (CK-2) 4.4 H Troponin T 0.348 H* NT-Pro-B Natriuret Pep 3679 H Albumin Triglycerides 284 H LDL Cholesterol Direct 4 L HDL Cholesterol 7 L Urine WBC (Auto) 36.0 H Crossmatch 11/13/18 11/13/18 11/13/18 14:49 14:49 14:52 WBC RBC Hgb Hct MCV MCH MCHC RDW Lymph % (Auto) [place] % (Auto) Eos % (Auto) [place] # Seg Neutrophils % Seg Neuts % (Manual) Lymphocytes % (Manual) Eosinophils % (Manual) Seg Neutrophils # Lymphocytes # (Manual) POC ABG pH POC ABG pO2 ABG pO2 ABG Base Excess ABG Hemoglobin Oxyhemoglobin Sodium Potassium Chloride Carbon Dioxide BUN Creatinine Glucose POC Glucose 205 H Lactic Acid 3.90 H* Calcium AST ALT Alkaline Phosphatase Total Creatine Kinase CK-MB (CK-2) Troponin T NT-Pro-B Natriuret Pep Albumin Triglycerides LDL Cholesterol Direct HDL Cholesterol Urine WBC (Auto) Crossmatch See Detail 11/13/18 11/13/18 11/13/18 16:58 17:13 19:46 WBC RBC Hgb Hct MCV MCH MCHC RDW Lymph % (Auto) [place] % (Auto) Eos % (Auto) [place] # Seg Neutrophils % Seg Neuts % (Manual) Lymphocytes % (Manual) Eosinophils % (Manual) Seg Neutrophils # Lymphocytes # (Manual) POC ABG pH 7.573 H POC ABG pO2 ABG pO2 ABG Base Excess ABG Hemoglobin Oxyhemoglobin Sodium Potassium Chloride Carbon Dioxide BUN Creatinine Glucose POC Glucose Lactic Acid 3.90 H* 4.40 H* Calcium AST ALT Alkaline Phosphatase Total Creatine Kinase CK-MB (CK-2) Troponin T NT-Pro-B Natriuret Pep Albumin Triglycerides LDL Cholesterol Direct HDL Cholesterol Urine WBC (Auto) Crossmatch 11/13/18 11/14/18 11/14/18 21:34 04:50 05:23 WBC RBC Hgb Hct MCV MCH MCHC RDW Lymph % (Auto) [place] % (Auto) Eos % (Auto) [place] # Seg Neutrophils % Seg Neuts % (Manual) Lymphocytes % (Manual) Eosinophils % (Manual) Seg Neutrophils # Lymphocytes # (Manual) POC ABG pH POC ABG pO2 ABG pO2 120.8 H ABG Base Excess ABG Hemoglobin 10.9 L Oxyhemoglobin Sodium Potassium Chloride Carbon Dioxide BUN Creatinine Glucose POC Glucose 263 H Lactic Acid 4.50 H* Calcium AST ALT Alkaline Phosphatase Total Creatine Kinase CK-MB (CK-2) Troponin T NT-Pro-B Natriuret Pep Albumin Triglycerides LDL Cholesterol Direct HDL Cholesterol Urine WBC (Auto) Crossmatch 11/14/18 11/14/18 11/14/18 05:46 08:02 12:42 WBC RBC Hgb Hct MCV MCH MCHC RDW Lymph % (Auto) [place] % (Auto) Eos % (Auto) [place] # Seg Neutrophils % Seg Neuts % (Manual) Lymphocytes % (Manual) Eosinophils % (Manual) Seg Neutrophils # Lymphocytes # (Manual) POC ABG pH 7.463 H POC ABG pO2 136 H ABG pO2 ABG Base Excess ABG Hemoglobin Oxyhemoglobin Sodium Potassium Chloride Carbon Dioxide BUN Creatinine Glucose POC Glucose 213 H Lactic Acid 2.70 H* Calcium AST ALT Alkaline Phosphatase Total Creatine Kinase CK-MB (CK-2) Troponin T NT-Pro-B Natriuret Pep Albumin Triglycerides LDL Cholesterol Direct HDL Cholesterol Urine WBC (Auto) Crossmatch 11/14/18 11/14/18 11/14/18 14:17 14:17 15:50 WBC 13.1 H 13.1 H RBC 2.36 L 2.36 L Hgb 6.1 L 6.1 L Hct 19.6 L* 19.4 L* MCV 83 L 82 L MCH 26 L 26 L MCHC 31 L 31 L RDW 19.4 H 19.3 H Lymph % (Auto) [place] % (Auto) Eos % (Auto) [place] # Seg Neutrophils % Seg Neuts % (Manual) Lymphocytes % (Manual) Eosinophils % (Manual) Seg Neutrophils # Lymphocytes # (Manual) POC ABG pH POC ABG pO2 ABG pO2 ABG Base Excess ABG Hemoglobin Oxyhemoglobin Sodium 148 H Potassium Chloride 110.3 H Carbon Dioxide BUN 56 H Creatinine Glucose 203 H POC Glucose Lactic Acid Calcium 7.6 L AST ALT Alkaline Phosphatase Total Creatine Kinase CK-MB (CK-2) Troponin T NT-Pro-B Natriuret Pep Albumin Triglycerides LDL Cholesterol Direct HDL Cholesterol Urine WBC (Auto) Crossmatch 11/14/18 11/14/18 11/15/18 18:19 23:52 05:10 WBC 16.2 H RBC 3.22 L Hgb 8.8 L Hct 26.8 L D MCV 83 L MCH 27 L MCHC RDW 16.8 H Lymph % (Auto) [place] % (Auto) Eos % (Auto) [place] # Seg Neutrophils % Seg Neuts % (Manual) Lymphocytes % (Manual) Eosinophils % (Manual) Seg Neutrophils # Lymphocytes # (Manual) POC ABG pH POC ABG pO2 ABG pO2 ABG Base Excess ABG Hemoglobin Oxyhemoglobin Sodium Potassium Chloride Carbon Dioxide BUN Creatinine Glucose POC Glucose 213 H 242 H Lactic Acid Calcium AST ALT Alkaline Phosphatase Total Creatine Kinase CK-MB (CK-2) Troponin T NT-Pro-B Natriuret Pep Albumin Triglycerides LDL Cholesterol Direct HDL Cholesterol Urine WBC (Auto) Crossmatch 11/15/18 11/15/18 11/15/18 05:10 05:36 11:15 WBC RBC Hgb Hct MCV MCH MCHC RDW Lymph % (Auto) [place] % (Auto) Eos % (Auto) [place] # Seg Neutrophils % Seg Neuts % (Manual) Lymphocytes % (Manual) Eosinophils % (Manual) Seg Neutrophils # Lymphocytes # (Manual) POC ABG pH POC ABG pO2 ABG pO2 ABG Base Excess ABG Hemoglobin Oxyhemoglobin Sodium 148 H Potassium 3.5 L Chloride 112.8 H Carbon Dioxide BUN 51 H Creatinine Glucose 154 H POC Glucose 143 H 139 H Lactic Acid Calcium 7.8 L AST ALT Alkaline Phosphatase Total Creatine Kinase CK-MB (CK-2) Troponin T NT-Pro-B Natriuret Pep Albumin Triglycerides LDL Cholesterol Direct HDL Cholesterol Urine WBC (Auto) Crossmatch 11/15/18 11/15/18 11/15/18 12:00 18:28 20:56 WBC RBC Hgb Hct MCV MCH MCHC RDW Lymph % (Auto) [place] % (Auto) Eos % (Auto) [place] # Seg Neutrophils % Seg Neuts % (Manual) Lymphocytes % (Manual) Eosinophils % (Manual) Seg Neutrophils # Lymphocytes # (Manual) POC ABG pH POC ABG pO2 ABG pO2 ABG Base Excess ABG Hemoglobin Oxyhemoglobin Sodium 148 H Potassium 3.2 L Chloride 113.0 H Carbon Dioxide BUN 44 H Creatinine Glucose 144 H POC Glucose 159 H 150 H Lactic Acid Calcium 7.7 L AST ALT Alkaline Phosphatase Total Creatine Kinase CK-MB (CK-2) Troponin T NT-Pro-B Natriuret Pep Albumin Triglycerides LDL Cholesterol Direct HDL Cholesterol Urine WBC (Auto) Crossmatch 11/15/18 11/16/18 11/16/18 23:32 03:40 03:45 WBC 16.1 H RBC 3.30 L Hgb 8.9 L Hct 27.9 L MCV MCH 27 L MCHC RDW 17.5 H Lymph % (Auto) [place] % (Auto) Eos % (Auto) [place] # Seg Neutrophils % Seg Neuts % (Manual) Lymphocytes % (Manual) Eosinophils % (Manual) Seg Neutrophils # Lymphocytes # (Manual) POC ABG pH POC ABG pO2 ABG pO2 147.0 H ABG Base Excess ABG Hemoglobin 12.0 L Oxyhemoglobin Sodium Potassium Chloride Carbon Dioxide BUN Creatinine Glucose POC Glucose 131 H Lactic Acid Calcium AST ALT Alkaline Phosphatase Total Creatine Kinase CK-MB (CK-2) Troponin T NT-Pro-B Natriuret Pep Albumin Triglycerides LDL Cholesterol Direct HDL Cholesterol Urine WBC (Auto) Crossmatch 11/16/18 11/16/18 11/16/18 03:45 05:15 15:14 WBC RBC Hgb Hct MCV MCH MCHC RDW Lymph % (Auto) [place] % (Auto) Eos % (Auto) [place] # Seg Neutrophils % Seg Neuts % (Manual) Lymphocytes % (Manual) Eosinophils % (Manual) Seg Neutrophils # Lymphocytes # (Manual) POC ABG pH POC ABG pO2 ABG pO2 ABG Base Excess ABG Hemoglobin Oxyhemoglobin Sodium 149 H Potassium 3.5 L Chloride 116.2 H Carbon Dioxide 21 L BUN 41 H Creatinine Glucose 146 H POC Glucose 155 H 215 H Lactic Acid Calcium 7.7 L AST ALT Alkaline Phosphatase Total Creatine Kinase CK-MB (CK-2) Troponin T NT-Pro-B Natriuret Pep Albumin Triglycerides LDL Cholesterol Direct HDL Cholesterol Urine WBC (Auto) Crossmatch 11/16/18 11/16/18 11/17/18 18:20 23:49 04:49 WBC 12.1 H RBC 3.34 L Hgb 9.0 L Hct 28.1 L MCV MCH 27 L MCHC RDW 17.5 H Lymph % (Auto) [place] % (Auto) Eos % (Auto) [place] # Seg Neutrophils % Seg Neuts % (Manual) Lymphocytes % (Manual) Eosinophils % (Manual) Seg Neutrophils # Lymphocytes # (Manual) POC ABG pH POC ABG pO2 ABG pO2 ABG Base Excess ABG Hemoglobin Oxyhemoglobin Sodium Potassium Chloride Carbon Dioxide BUN Creatinine Glucose POC Glucose 230 H 189 H Lactic Acid Calcium AST ALT Alkaline Phosphatase Total Creatine Kinase CK-MB (CK-2) Troponin T NT-Pro-B Natriuret Pep Albumin Triglycerides LDL Cholesterol Direct HDL Cholesterol Urine WBC (Auto) Crossmatch 11/17/18 11/17/18 11/17/18 04:49 05:45 14:16 WBC RBC Hgb Hct MCV MCH MCHC RDW Lymph % (Auto) [place] % (Auto) Eos % (Auto) [place] # Seg Neutrophils % Seg Neuts % (Manual) Lymphocytes % (Manual) Eosinophils % (Manual) Seg Neutrophils # Lymphocytes # (Manual) POC ABG pH POC ABG pO2 ABG pO2 ABG Base Excess ABG Hemoglobin Oxyhemoglobin Sodium 150 H Potassium 3.2 L Chloride 118.9 H Carbon Dioxide 20 L BUN 38 H Creatinine 0.7 L Glucose 164 H POC Glucose 181 H 172 H Lactic Acid Calcium 7.7 L AST ALT Alkaline Phosphatase Total Creatine Kinase CK-MB (CK-2) Troponin T NT-Pro-B Natriuret Pep Albumin Triglycerides LDL Cholesterol Direct HDL Cholesterol Urine WBC (Auto) Crossmatch 11/17/18 11/17/18 11/18/18 23:36 Unknown 04:10 WBC RBC Hgb Hct MCV MCH MCHC RDW Lymph % (Auto) [place] % (Auto) Eos % (Auto) [place] # Seg Neutrophils % Seg Neuts % (Manual) Lymphocytes % (Manual) Eosinophils % (Manual) Seg Neutrophils # Lymphocytes # (Manual) POC ABG pH POC ABG pO2 ABG pO2 105.9 H 101.8 H ABG Base Excess -2.3 L -3.2 L ABG Hemoglobin 11.5 L 10.2 L Oxyhemoglobin Sodium Potassium Chloride Carbon Dioxide BUN Creatinine Glucose POC Glucose 214 H Lactic Acid Calcium AST ALT Alkaline Phosphatase Total Creatine Kinase CK-MB (CK-2) Troponin T NT-Pro-B Natriuret Pep Albumin Triglycerides LDL Cholesterol Direct HDL Cholesterol Urine WBC (Auto) Crossmatch 11/18/18 11/18/18 11/18/18 04:37 04:37 05:36 WBC RBC 3.10 L Hgb 8.5 L Hct 26.8 L MCV MCH 27 L MCHC RDW 17.8 H Lymph % (Auto) 12.8 L [place] % (Auto) 8.5 H Eos % (Auto) [place] # 0.9 H Seg Neutrophils % 75.8 H Seg Neuts % (Manual) Lymphocytes % (Manual) Eosinophils % (Manual) Seg Neutrophils # 8.0 H Lymphocytes # (Manual) POC ABG pH POC ABG pO2 ABG pO2 ABG Base Excess ABG Hemoglobin Oxyhemoglobin Sodium 148 H Potassium 3.3 L Chloride 118.3 H Carbon Dioxide 20 L BUN 32 H Creatinine 0.7 L Glucose 154 H POC Glucose 171 H Lactic Acid Calcium 7.4 L AST ALT Alkaline Phosphatase Total Creatine Kinase CK-MB (CK-2) Troponin T NT-Pro-B Natriuret Pep Albumin Triglycerides LDL Cholesterol Direct HDL Cholesterol Urine WBC (Auto) Crossmatch 11/18/18 11/18/18 11/18/18 12:10 17:27 23:56 WBC RBC Hgb Hct MCV MCH MCHC RDW Lymph % (Auto) [place] % (Auto) Eos % (Auto) [place] # Seg Neutrophils % Seg Neuts % (Manual) Lymphocytes % (Manual) Eosinophils % (Manual) Seg Neutrophils # Lymphocytes # (Manual) POC ABG pH POC ABG pO2 ABG pO2 ABG Base Excess ABG Hemoglobin Oxyhemoglobin Sodium Potassium Chloride Carbon Dioxide BUN Creatinine Glucose POC Glucose 244 H 239 H 241 H Lactic Acid Calcium AST ALT Alkaline Phosphatase Total Creatine Kinase CK-MB (CK-2) Troponin T NT-Pro-B Natriuret Pep Albumin Triglycerides LDL Cholesterol Direct HDL Cholesterol Urine WBC (Auto) Crossmatch 11/19/18 11/19/18 11/19/18 03:45 04:27 06:37 WBC RBC Hgb Hct MCV MCH MCHC RDW Lymph % (Auto) [place] % (Auto) Eos % (Auto) [place] # Seg Neutrophils % Seg Neuts % (Manual) Lymphocytes % (Manual) Eosinophils % (Manual) Seg Neutrophils # Lymphocytes # (Manual) POC ABG pH POC ABG pO2 ABG pO2 95.5 H ABG Base Excess -4.0 L ABG Hemoglobin 5.9 L Oxyhemoglobin Sodium 147 H Potassium Chloride 119.2 H Carbon Dioxide 20 L BUN 28 H Creatinine 0.6 L Glucose 181 H POC Glucose 220 H Lactic Acid Calcium 7.6 L AST ALT Alkaline Phosphatase Total Creatine Kinase CK-MB (CK-2) Troponin T NT-Pro-B Natriuret Pep Albumin Triglycerides LDL Cholesterol Direct HDL Cholesterol Urine WBC (Auto) Crossmatch 11/19/18 11/19/18 11/19/18 06:41 11:27 17:31 WBC RBC 3.28 L Hgb 9.0 L Hct 28.2 L MCV MCH MCHC RDW 17.9 H Lymph % (Auto) [place] % (Auto) 11.0 H Eos % (Auto) [place] # 1.1 H Seg Neutrophils % Seg Neuts % (Manual) Lymphocytes % (Manual) Eosinophils % (Manual) Seg Neutrophils # Lymphocytes # (Manual) POC ABG pH POC ABG pO2 ABG pO2 ABG Base Excess ABG Hemoglobin Oxyhemoglobin Sodium Potassium Chloride Carbon Dioxide BUN Creatinine Glucose POC Glucose 280 H 300 H Lactic Acid Calcium AST ALT Alkaline Phosphatase Total Creatine Kinase CK-MB (CK-2) Troponin T NT-Pro-B Natriuret Pep Albumin Triglycerides LDL Cholesterol Direct HDL Cholesterol Urine WBC (Auto) Crossmatch 11/19/18 11/20/18 11/20/18 23:30 03:03 03:03 WBC RBC 3.04 L Hgb 8.4 L Hct 26.1 L MCV MCH MCHC RDW 18.1 H Lymph % (Auto) [place] % (Auto) 11.0 H Eos % (Auto) [place] # 0.9 H Seg Neutrophils % Seg Neuts % (Manual) Lymphocytes % (Manual) Eosinophils % (Manual) Seg Neutrophils # Lymphocytes # (Manual) POC ABG pH POC ABG pO2 ABG pO2 ABG Base Excess ABG Hemoglobin Oxyhemoglobin Sodium 148 H Potassium Chloride 117.4 H Carbon Dioxide BUN 24 H Creatinine 0.6 L Glucose 238 H POC Glucose 251 H Lactic Acid Calcium 7.9 L AST ALT Alkaline Phosphatase Total Creatine Kinase CK-MB (CK-2) Troponin T NT-Pro-B Natriuret Pep Albumin Triglycerides LDL Cholesterol Direct HDL Cholesterol Urine WBC (Auto) Crossmatch 11/20/18 11/20/18 11/20/18 04:20 05:15 12:21 WBC RBC Hgb Hct MCV MCH MCHC RDW Lymph % (Auto) [place] % (Auto) Eos % (Auto) [place] # Seg Neutrophils % Seg Neuts % (Manual) Lymphocytes % (Manual) Eosinophils % (Manual) Seg Neutrophils # Lymphocytes # (Manual) POC ABG pH POC ABG pO2 ABG pO2 91.3 H ABG Base Excess -2.6 L ABG Hemoglobin 8.3 L Oxyhemoglobin Sodium Potassium Chloride Carbon Dioxide BUN Creatinine Glucose POC Glucose 213 H 318 H Lactic Acid Calcium AST ALT Alkaline Phosphatase Total Creatine Kinase CK-MB (CK-2) Troponin T NT-Pro-B Natriuret Pep Albumin Triglycerides LDL Cholesterol Direct HDL Cholesterol Urine WBC (Auto) Crossmatch 11/20/18 11/20/18 11/20/18 18:01 20:50 23:36 WBC RBC Hgb Hct MCV MCH MCHC RDW Lymph % (Auto) [place] % (Auto) Eos % (Auto) [place] # Seg Neutrophils % Seg Neuts % (Manual) Lymphocytes % (Manual) Eosinophils % (Manual) Seg Neutrophils # Lymphocytes # (Manual) POC ABG pH POC ABG pO2 ABG pO2 90.8 H ABG Base Excess -2.1 L ABG Hemoglobin 13.4 L Oxyhemoglobin 94.9 L Sodium Potassium Chloride Carbon Dioxide BUN Creatinine Glucose POC Glucose 301 H 290 H Lactic Acid Calcium AST ALT Alkaline Phosphatase Total Creatine Kinase CK-MB (CK-2) Troponin T NT-Pro-B Natriuret Pep Albumin Triglycerides LDL Cholesterol Direct HDL Cholesterol Urine WBC (Auto) Crossmatch 11/21/18 11/21/18 11/21/18 03:09 03:09 05:10 WBC RBC 3.05 L Hgb 8.5 L Hct 26.1 L MCV MCH MCHC RDW 18.7 H Lymph % (Auto) [place] % (Auto) 12.2 H Eos % (Auto) [place] # 0.9 H Seg Neutrophils % Seg Neuts % (Manual) Lymphocytes % (Manual) Eosinophils % (Manual) Seg Neutrophils # Lymphocytes # (Manual) POC ABG pH POC ABG pO2 ABG pO2 ABG Base Excess ABG Hemoglobin Oxyhemoglobin Sodium 150 H Potassium 3.5 L Chloride 118.5 H Carbon Dioxide BUN 22 H Creatinine 0.6 L Glucose 279 H POC Glucose 307 H Lactic Acid Calcium 7.7 L AST ALT Alkaline Phosphatase Total Creatine Kinase CK-MB (CK-2) Troponin T NT-Pro-B Natriuret Pep Albumin Triglycerides LDL Cholesterol Direct HDL Cholesterol Urine WBC (Auto) Crossmatch 11/21/18 11/21/18 11/21/18 11:24 17:23 23:20 WBC RBC Hgb Hct MCV MCH MCHC RDW Lymph % (Auto) [place] % (Auto) Eos % (Auto) [place] # Seg Neutrophils % Seg Neuts % (Manual) Lymphocytes % (Manual) Eosinophils % (Manual) Seg Neutrophils # Lymphocytes # (Manual) POC ABG pH POC ABG pO2 ABG pO2 ABG Base Excess ABG Hemoglobin Oxyhemoglobin Sodium Potassium Chloride Carbon Dioxide BUN Creatinine Glucose POC Glucose 324 H 288 H 254 H Lactic Acid Calcium AST ALT Alkaline Phosphatase Total Creatine Kinase CK-MB (CK-2) Troponin T NT-Pro-B Natriuret Pep Albumin Triglycerides LDL Cholesterol Direct HDL Cholesterol Urine WBC (Auto) Crossmatch 11/22/18 11/22/18 11/22/18 03:50 05:43 06:10 WBC RBC 2.93 L Hgb 8.1 L Hct 25.2 L MCV MCH MCHC RDW 18.6 H Lymph % (Auto) [place] % (Auto) 10.9 H Eos % (Auto) 4.4 H [place] # 0.9 H Seg Neutrophils % Seg Neuts % (Manual) Lymphocytes % (Manual) Eosinophils % (Manual) Seg Neutrophils # Lymphocytes # (Manual) POC ABG pH POC ABG pO2 ABG pO2 94.6 H ABG Base Excess ABG Hemoglobin 6.5 L Oxyhemoglobin Sodium Potassium Chloride Carbon Dioxide BUN Creatinine Glucose POC Glucose 227 H Lactic Acid Calcium AST ALT Alkaline Phosphatase Total Creatine Kinase CK-MB (CK-2) Troponin T NT-Pro-B Natriuret Pep Albumin Triglycerides LDL Cholesterol Direct HDL Cholesterol Urine WBC (Auto) Crossmatch 11/22/18 11/22/18 11/22/18 06:10 11:35 17:07 WBC RBC Hgb Hct MCV MCH MCHC RDW Lymph % (Auto) [place] % (Auto) Eos % (Auto) [place] # Seg Neutrophils % Seg Neuts % (Manual) Lymphocytes % (Manual) Eosinophils % (Manual) Seg Neutrophils # Lymphocytes # (Manual) POC ABG pH POC ABG pO2 ABG pO2 ABG Base Excess ABG Hemoglobin Oxyhemoglobin Sodium 146 H Potassium 3.3 L Chloride 114.8 H Carbon Dioxide BUN 21 H Creatinine 0.5 L Glucose 214 H POC Glucose 262 H 205 H Lactic Acid Calcium 7.7 L AST ALT Alkaline Phosphatase Total Creatine Kinase CK-MB (CK-2) Troponin T NT-Pro-B Natriuret Pep Albumin Triglycerides LDL Cholesterol Direct HDL Cholesterol Urine WBC (Auto) Crossmatch 11/22/18 11/23/18 11/23/18 23:23 05:35 06:48 WBC RBC 2.90 L Hgb 8.0 L Hct 25.1 L MCV MCH MCHC RDW 18.7 H Lymph % (Auto) [place] % (Auto) 8.7 H Eos % (Auto) 4.5 H [place] # Seg Neutrophils % Seg Neuts % (Manual) Lymphocytes % (Manual) Eosinophils % (Manual) Seg Neutrophils # Lymphocytes # (Manual) POC ABG pH POC ABG pO2 ABG pO2 ABG Base Excess ABG Hemoglobin Oxyhemoglobin Sodium Potassium Chloride Carbon Dioxide BUN Creatinine Glucose POC Glucose 165 H 140 H Lactic Acid Calcium AST ALT Alkaline Phosphatase Total Creatine Kinase CK-MB (CK-2) Troponin T NT-Pro-B Natriuret Pep Albumin Triglycerides LDL Cholesterol Direct HDL Cholesterol Urine WBC (Auto) Crossmatch 11/23/18 11/23/18 11/23/18 06:48 12:00 17:16 WBC RBC Hgb Hct MCV MCH MCHC RDW Lymph % (Auto) [place] % (Auto) Eos % (Auto) [place] # Seg Neutrophils % Seg Neuts % (Manual) Lymphocytes % (Manual) Eosinophils % (Manual) Seg Neutrophils # Lymphocytes # (Manual) POC ABG pH POC ABG pO2 ABG pO2 ABG Base Excess ABG Hemoglobin Oxyhemoglobin Sodium 146 H Potassium Chloride 115.4 H Carbon Dioxide BUN Creatinine 0.4 L Glucose 144 H POC Glucose 199 H 207 H Lactic Acid Calcium 7.8 L AST ALT Alkaline Phosphatase Total Creatine Kinase CK-MB (CK-2) Troponin T NT-Pro-B Natriuret Pep Albumin Triglycerides LDL Cholesterol Direct HDL Cholesterol Urine WBC (Auto) Crossmatch 11/23/18 11/23/18 11/24/18 22:23 23:57 05:38 WBC RBC Hgb Hct MCV MCH MCHC RDW Lymph % (Auto) [place] % (Auto) Eos % (Auto) [place] # Seg Neutrophils % Seg Neuts % (Manual) Lymphocytes % (Manual) Eosinophils % (Manual) Seg Neutrophils # Lymphocytes # (Manual) POC ABG pH POC ABG pO2 ABG pO2 ABG Base Excess ABG Hemoglobin Oxyhemoglobin Sodium Potassium Chloride Carbon Dioxide BUN Creatinine Glucose POC Glucose 186 H 172 H 137 H Lactic Acid Calcium AST ALT Alkaline Phosphatase Total Creatine Kinase CK-MB (CK-2) Troponin T NT-Pro-B Natriuret Pep Albumin Triglycerides LDL Cholesterol Direct HDL Cholesterol Urine WBC (Auto) Crossmatch 11/24/18 12:23 WBC RBC Hgb Hct MCV MCH MCHC RDW Lymph % (Auto) [place] % (Auto) Eos % (Auto) [place] # Seg Neutrophils % Seg Neuts % (Manual) Lymphocytes % (Manual) Eosinophils % (Manual) Seg Neutrophils # Lymphocytes # (Manual) POC ABG pH POC ABG pO2 ABG pO2 ABG Base Excess ABG Hemoglobin Oxyhemoglobin Sodium Potassium Chloride Carbon Dioxide BUN Creatinine Glucose POC Glucose 168 H Lactic Acid Calcium AST ALT Alkaline Phosphatase Total Creatine Kinase CK-MB (CK-2) Troponin T NT-Pro-B Natriuret Pep Albumin Triglycerides LDL Cholesterol Direct HDL Cholesterol Urine WBC (Auto) Crossmatch Chest x-ray: other (None today) Allied health notes reviewed: nursing
[2018-11-24] MEDS: REGLAN IV SCH ×2 (14:16→21:10)
--- NOTE | 2018-11-24 15:42 | Progress Note ---
Assessment and Plan Cultures: 11/13 BCx - VRE 11/13 UCx - >100k mixed kole 11/13 Sputum Cx - not run due to contamination 11/16/2018 Blood culture: no growth thus far A/P: 77 yo M PMHx CVA, seizures, HTN, DM2 admitted for worsenign respiratory status. 1. Septic shock secondary to VRE bacteremia: Off pressors. Source: urine v/s large sacral decubitus ulcer. TTE poor windows, if repeat blood cultures remain negative, would not recommend GLORIA since overall prognosis remains extremely poor and he is not going to be a candidate for any valve surgeries. Repeat blood cultures are negative. 2. Acute on chronic respiratory failure - CXR with congestion, no focal infiltrate to suggest pneumonia. VRE / Enterococcus rarely causes pneumonia. 3. UTI - Urine cultures with mixed kole. >100 CFU, probably cause of Enterococcal bacteremia. 4. Large sacral decubitus ulcer, infected, with eschar: could be the source of the VRE bacteremia. Appreciate General Surgery recommendations. Agree that progn osis is extremely poor. No plans for debridement now. 5. DM-2 6. Hx of CVA: s/p trach and PEG. 7. Elevated LFTs: probably from sepsis. RUQ US showed collapsed GB, no gallstones, trace ascites and hepatic steatosis. Recs: - continue PO Linezolid 600 mg BID. Stop date 11/29. Prolonged abx are going to be futile. - monitor platelets while on linezolid - noted cancellation of wound debridement as patient would not benefit per surgery and family non-committal. - continue wound care and contact isolation - overall prognosis remains extremely poor Thank you for the consult, we will continue to follow. Darcy Noonan MD [facility] M: [phone] O: [phone] F: [phone] Subjective Date of service: 11/24/18 Principal diagnosis: Severe sepsis with shock; Ac and ch resp failure; Metabolic encephalopathy Interval history: No change today. Family undecided about debridement, no value per surgery. Objective - Exam Narrative Exam: Physical Exam: Constitutional: Non-responsive. No acute distress Head, Ears, Nose: Normocephalic, atraumatic. External ears, nose normal. Intubated Eyes: Conjunctivae/corneas clear. No icterus. No ptosis. Neck: Supple, no meningeal signs Oral: dentition fair, no thrush Cardiovascular: S1, S2 normal. Respiratory: Good air entry, clear to auscultation bilaterally GI: Soft, non-tender; bowel sounds normal. No peritoneal signs. Musculoskeletal: No pedal edema, no cyanosis. Skin: No rash or abscess Hem/Lymphatic: No palpable cervical or supraclavicular nodes. No lymphangitis Psych: Mood ok. Affect normal Neurological: Intubated, non-responsive. - Constitutional Vitals: Vital Signs Temp Pulse Resp BP Pulse Ox 97.3 F L 76 15 134/66 98 11/24/18 08:00 11/24/18 14:01 11/24/18 14:01 11/24/18 14:01 11/24/18 14:01 Temperature -Last 24 Hours Temperature 97.3 F Temperature 98.8 F Temperature 98.4 F Temperature 98.3 F Temperature 97.8 F - Labs CBC & Chem 7: 11/23/18 06:48 11/23/18 06:48 Labs: Abnormal lab results 11/23/18 11/23/18 11/23/18 Range/Units 12:00 17:16 22:23 POC Glucose 199 H 207 H 186 H (70-105) 11/23/18 11/24/18 11/24/18 Range/Units 23:57 05:38 12:23 POC Glucose 172 H 137 H 168 H (70-105)
[2018-11-24] MEDS: LANTUS SUB-Q SCH (21:11)
[2018-11-24] MEDS: ARTIFICIAL TEARS OPHTH OINT OU PRN (21:28)
[2018-11-24 21:32] LABS: ABG Base Excess 0.4 mmol/L (-2.0-3.0); ABG HCO3 25.7 mmol/L (20.0-26.0); ABG Methemoglobin 0.5 % (0.0-1.5); ABG Oxygen Saturation 97.1 % (95.0-99.0); ABG PCO2 45.8 mm Hg; ABG PH 7.367 pH Units (7.350-7.450); ABG PO2 89.9 mm Hg (80.0-90.0)
[2018-11-25 04:44] LABS: Hematocrit 23.7 % (35.5-45.6); Hemoglobin 7.7 gm/dl (11.8-15.2); Mean Corpuscular HGB Conc 33 % (32-34); Mean Corpuscular Volume 85 fl (84-94); Platelet Count 151 K/mm3 (140-440); Red Blood Count 2.78 M/mm3 (3.65-5.03); Red Cell Distribution Width 18.7 % (13.2-15.2)
[2018-11-25 05:03] LABS: BUN/Creatinine Ratio 45; Blood Urea Nitrogen 18 mg/dL (9-20); Calcium 7.9 mg/dL (8.4-10.2); Hemolysis Index 3
[2018-11-25] MEDS: REGLAN IV SCH ×3 (07:26→22:39)
[2018-11-25] MEDS: HumaLOG SUB-Q SCH ×2 (07:26→11:54)
--- NOTE | 2018-11-25 08:28 | Progress Note ---
Assessment and Plan Assessment and plan: Acute on chronic resp failure Cont. tracheostomy care, secretion control and airway mangement Pulmonology following Severe Sepsis with septic shock due to VRE off vasopressors Blood cultures Enterococcus Faecium 4 of 4 bottles ID Physician following Continue antibiotics per ID recommendations, Zyvox 600 mg twice a day for total of 14 day Sacral decub ulcer. Appreciate general surgery recommendations. considering surgery Diabetes mellitus type 2 Fingerstick q4h Anemia s/p 2 Units PRBC stool occult blood neg Hypertension by history. Monitor History of chronic hypoxic encephalopathy Hyperlipidemia Hypernatremia Hypokalemia Replete iv Hypomagnesemia give Mg rider Full code status Poor prognosis. I had a long discussion with the who wants to continue full supportive and aggressive care. Surgery also had a discussion with the with regards to debridement of his wound. Today, 11/24/18, tells me she has not decided on surgery yet. The high probability of a clinically significant, sudden or life threatening deterioration of the respiratory and immunologic system(s) required my full and direct attention, intervention and personal management. The aggregate critical care time was [32] minutes. This time is in addition to time spent performing reported procedures but includes the following: [x] Data Review and interpretation [x] Patient assessment and monitoring of vital signs [x] Documentation [x] Medication orders and management History Interval history: Still only minimally responsive considering debridement surgery sacral ulcer Hospitalist Physical - Physical exam Narrative exam: Gen: Not in acute distress, lying in bed, ill looking HEENT: Normocephalic, atraumatic, tracheostomy to t-piece Neck: supple, no JVD,trach Heart: S1 and S2 reg, no murmurs, rubs or gallop Lungs: Clear, no crackles, no rhonchi Abd: soft, non tender, non distended, normal BS, PEG tube Ext: No edema, no clubbing, no cyanosis Neuro: Minimal responsive, Does not follow commands Sacral:sacral decub ulcer - Constitutional Vitals: Temp Pulse Resp BP Pulse Ox 97.5 F L 82 14 134/60 99 11/25/18 08:00 11/25/18 08:01 11/25/18 08:01 11/25/18 08:01 11/25/18 08:01 General appearance: Present: no acute distress, obese, other (intubated on vent) Results - Labs CBC & Chem 7: 11/25/18 04:24 11/25/18 04:24 Labs: Laboratory Last Values WBC 7.1 K/mm3 (4.5-11.0) 11/25/18 04:24 RBC 2.78 M/mm3 (3.65-5.03) L 11/25/18 04:24 Hgb 7.7 gm/dl (11.8-15.2) L 11/25/18 04:24 Hct 23.7 % (35.5-45.6) L 11/25/18 04:24 MCV 85 fl (84-94) 11/25/18 04:24 MCH 28 pg (28-32) 11/25/18 04:24 MCHC 33 % (32-34) 11/25/18 04:24 RDW 18.7 % (13.2-15.2) H 11/25/18 04:24 Plt Count 151 K/mm3 (140-440) 11/25/18 04:24 Lymph % (Auto) 22.4 % (13.4-35.0) 11/23/18 06:48 [place] % (Auto) 8.7 % (0.0-7.3) H 11/23/18 06:48 Eos % (Auto) 4.5 % (0.0-4.3) H 11/23/18 06:48 Baso % (Auto) 0.6 % (0.0-1.8) 11/23/18 06:48 Lymph # 1.7 K/mm3 (1.2-5.4) 11/23/18 06:48 [place] # 0.7 K/mm3 (0.0-0.8) 11/23/18 06:48 Eos # 0.3 K/mm3 (0.0-0.4) 11/23/18 06:48 Baso # 0.0 K/mm3 (0.0-0.1) 11/23/18 06:48 Add Manual Diff Complete 11/13/18 14:00 Total Counted 100 11/13/18 14:00 Seg Neutrophils % 63.8 % (40.0-70.0) 11/23/18 06:48 Seg Neuts % (Manual) 87.0 % (40.0-70.0) H 11/13/18 14:00 0 % 11/13/18 14:00 5.0 % (13.4-35.0) L 11/13/18 14:00 Reactive Lymphs % (Man) 0 % 11/13/18 14:00 1.0 % (0.0-7.3) 11/13/18 14:00 7.0 % (0.0-4.3) H 11/13/18 14:00 0 % (0.0-1.8) 11/13/18 14:00 0 % 11/13/18 14:00 0 % 11/13/18 14:00 0 % 11/13/18 14:00 0 % 11/13/18 14:00 Nucleated RBC % Not Reportable 11/13/18 14:00 Seg Neutrophils # 5.0 K/mm3 (1.8-7.7) 11/23/18 06:48 Seg Neutrophils # Man 3.3 K/mm3 (1.8-7.7) 11/13/18 14:00 Band Neutrophils # 0.0 K/mm3 11/13/18 14:00 0.2 K/mm3 (1.2-5.4) L 11/13/18 14:00 Abs React Lymphs (Man) 0.0 K/mm3 11/13/18 14:00 0.0 K/mm3 (0.0-0.8) 11/13/18 14:00 0.3 K/mm3 (0.0-0.4) 11/13/18 14:00 0.0 K/mm3 (0.0-0.1) 11/13/18 14:00 0.0 K/mm3 11/13/18 14:00 0.0 K/mm3 11/13/18 14:00 0.0 K/mm3 11/13/18 14:00 Blast Cells # 0.0 K/mm3 11/13/18 14:00 WBC Morphology Not Reportable 11/13/18 14:00 Hypersegmented Neuts Not Reportable 11/13/18 14:00 Hyposegmented Neuts Not Reportable 11/13/18 14:00 Hypogranular Neuts Not Reportable 11/13/18 14:00 Not Reportable 11/13/18 14:00 Not Reportable 11/13/18 14:00 Not Reportable 11/13/18 14:00 Not Reportable 11/13/18 14:00 Not Reportable 11/13/18 14:00 Not Reportable 11/13/18 14:00 Consistent w auto 11/13/18 14:00 Not Reportable 11/13/18 14:00 Plt Clumps, EDTA Not Reportable 11/13/18 14:00 Not Reportable 11/13/18 14:00 Not Reportable 11/13/18 14:00 Not Reportable 11/13/18 14:00 Plt Morphology Comment Not Reportable 11/13/18 14:00 RBC Morphology Not Reportable 11/13/18 14:00 Dimorphic RBCs Not Reportable 11/13/18 14:00 Few 11/13/18 14:00 Not Reportable 11/13/18 14:00 Few 11/13/18 14:00 1+ 11/13/18 14:00 Not Reportable 11/13/18 14:00 Not Reportable 11/13/18 14:00 Few 11/13/18 14:00 Not Reportable 11/13/18 14:00 Not Reportable 11/13/18 14:00 Not Reportable 11/13/18 14:00 Not Reportable 11/13/18 14:00 Not Reportable 11/13/18 14:00 Not Reportable 11/13/18 14:00 Not Reportable 11/13/18 14:00 Not Reportable 11/13/18 14:00 Not Reportable 11/13/18 14:00 Not Reportable 11/13/18 14:00 Not Reportable 11/13/18 14:00 Not Reportable 11/13/18 14:00 Acanthocytes (Spur) Not Reportable 11/13/18 14:00 Rouleaux Not Reportable 11/13/18 14:00 Not Reportable 11/13/18 14:00 Not Reportable 11/13/18 14:00 Not Reportable 11/13/18 14:00 Not Reportable 11/13/18 14:00 Hem Pathologist Commnt No 11/13/18 14:00 POC ABG pH 7.414 (7.35-7.45) 11/23/18 05:26 ABG pH 7.367 pH Units (7.350-7.450) 11/24/18 20:50 POC ABG pCO2 35.8 (35-45) 11/23/18 05:26 ABG pCO2 45.8 mm Hg 11/24/18 20:50 POC ABG pO2 93 (80-105) 11/23/18 05:26 ABG pO2 89.9 mm Hg (80.0-90.0) 11/24/18 20:50 POC ABG HCO3 22.9 (22-26 mml/L) 11/23/18 05:26 ABG HCO3 25.7 mmol/L (20.0-26.0) 11/24/18 20:50 POC ABG Total CO2 24 (23-27mmol/L) 11/23/18 05:26 POC ABG O2 Sat 97 11/23/18 05:26 ABG O2 Saturation 97.1 % (95.0-99.0) 11/24/18 20:50 ABG O2 Content 6.4 (0.0-44) 11/24/18 20:50 POC ABG Base Excess -2 ((-2) - (+3)mmol/L) 11/23/18 05:26 ABG Base Excess 0.4 mmol/L (-2.0-3.0) 11/24/18 20:50 ABG Hemoglobin 8.2 gm/dl (14.0-18.0) L 11/24/18 20:50 ABG Carboxyhemoglobin 1.8 % (0.0-5.0) 11/24/18 20:50 ABG Methemoglobin 0.5 % (0.0-1.5) 11/24/18 20:50 94.8 % (95.0-99.0) L 11/24/18 20:50 28 % 11/24/18 20:50 Sodium 140 mmol/L (137-145) 11/25/18 04:24 Potassium 3.5 mmol/L (3.6-5.0) L 11/25/18 04:24 Chloride 108.1 mmol/L (98-107) H 11/25/18 04:24 Carbon Dioxide 25 mmol/L (22-30) 11/25/18 04:24 10 mmol/L 11/25/18 04:24 BUN 18 mg/dL (9-20) 11/25/18 04:24 0.4 mg/dL (0.8-1.5) L 11/25/18 04:24 Estimated GFR > 60 ml/min 11/25/18 04:24 45 % 11/25/18 04:24 Glucose 119 mg/dL (75-100) H 11/25/18 04:24 POC Glucose 138 (70-105) H 11/25/18 05:14 Lactic Acid 1.60 mmol/L (0.7-2.0) 11/14/18 12:50 Calcium 7.9 mg/dL (8.4-10.2) L 11/25/18 04:24 Magnesium 1.50 mg/dL (1.7-2.3) L 11/25/18 04:24 0.70 mg/dL (0.1-1.2) 11/13/18 14:00 AST 154 units/L (5-40) H 11/13/18 14:00 ALT 134 units/L (7-56) H 11/13/18 14:00 586 units/L (35-129) H 11/13/18 14:00 510 units/L (55-170) H 11/13/18 14:49 CK-MB (CK-2) 4.4 ng/mL (0.0-4.0) H 11/13/18 14:49 CK-MB (CK-2) Rel Index 0.8 (0-4) 11/13/18 14:49 0.348 ng/mL (0.00-0.029) H* 11/13/18 14:49 NT-Pro-B Natriuret Pep 3679 pg/mL (0-900) H 11/13/18 14:49 6.8 g/dL (6.3-8.2) 11/13/18 14:00 1.2 g/dL (3.9-5) L 11/13/18 14:00 0.2 % 11/13/18 14:00 Triglycerides 284 mg/dL (2-149) H 11/13/18 14:49 Cholesterol 56 mg/dL (50-199) 11/13/18 14:49 4 mg/dL (50-130) L 11/13/18 14:49 7 mg/dL (40-59) L 11/13/18 14:49 8.00 % 11/13/18 14:49 Yellow (Yellow) 11/13/18 14:44 Slightly-cloudy (Clear) 11/13/18 14:44 6.0 (5.0-7.0) 11/13/18 14:44 Ur Specific [place] 1.017 (1.003-1.030) 11/13/18 14:44 30 mg/dl mg/dL (Negative) 11/13/18 14:44 Neg mg/dL (Negative) 11/13/18 14:44 Neg mg/dL (Negative) 11/13/18 14:44 Neg (Negative) 11/13/18 14:44 Neg (Negative) 11/13/18 14:44 Neg (Negative) 11/13/18 14:44 4.0 mg/dL (<2.0) 11/13/18 14:44 Ur Leukocyte Esterase Mod (Negative) 11/13/18 14:44 36.0 /HPF (0.0-6.0) H 11/13/18 14:44 21.0 /HPF (0.0-6.0) 11/13/18 14:44 1+ /HPF (Negative) 11/13/18 14:44 Few /HPF 11/13/18 14:44 3+ /HPF 11/13/18 14:44 Hepatitis A IgM Ab Non-reactive (NonReactive) 11/14/18 02:00 Hep Bs Antigen Non-reactive (Negative) 11/14/18 02:00 Hep B Core IgM Ab Non-reactive (NonReactive) 11/14/18 02:00 Non-reactive (NonReactive) 11/14/18 02:00 HIV 1&2 Antibody Rapid Non react (Non React) 11/14/18 02:00 Non react (Non React) 11/14/18 02:00 Blood Type O POSITIVE 11/13/18 14:49 Antibody Screen Negative 11/13/18 14:49 Crossmatch See Detail 11/13/18 14:49 Active Medications - Current Medications Current Medications: Generic Name Dose Route Start Last Admin Trade Name Freq PRN Reason Stop Dose Admin Albuterol 2.5 mg 11/19/18 17:21 Proventil IH Q6HRT PRN Shortness Of Breath Amlodipine Besylate 5 mg 11/20/18 13:00 11/24/18 09:44 Norvasc PO 5 mg QDAY LENCHO Administration Lipase/Protease/Amylase 1 each 11/14/18 14:20 Pancregarrett Alas 10,500 Unit FEEDTUBE PRN PRN For Clogged Feeding Tube Heparin Sodium (Porcine) 5,000 unit 11/14/18 03:30 11/24/18 21:11 Heparin SUB-Q 5,000 unit Q12HR LENCHO Administration Hydralazine HCl 10 mg 11/20/18 12:30 11/20/18 12:26 Apresoline IV 10 mg Q4H PRN Administration Blood Pressure Hydrophilic Ointment 1 applic 11/24/18 08:23 Vaseline Lip Therapy TP Q2HR PRN Dry Lips Potassium Chloride 10 meq in 100 mls @ 100 mls/hr 11/25/18 08:00 Kcl 10meq/100ml IV 11/25/18 09:59 Q1H LENCHO Magnesium Sulfate 3 gm/ Sodium 106 mls @ 35.333 mls/hr 11/25/18 09:00 Chloride IV 11/25/18 11:59 ONCE ONE Insulin Glargine 20 units 11/23/18 22:00 11/24/18 21:11 Lantus SUB-Q 20 units QHS LENCHO Administration Insulin Human Lispro 0 unit 11/14/18 06:00 11/25/18 07:26 Humalog SUB-Q Not Given Q6HR [facility] Protocol Lansoprazole 30 mg 11/16/18 10:00 11/24/18 09:44 Prevacid Solutab FEEDTUBE 30 mg QDAY LENCHO Administration Linezolid 600 mg 11/19/18 10:00 11/24/18 21:11 Zyvox PO 11/29/18 23:59 600 mg BID LENCHO Administration Metoclopramide HCl 10 mg 11/24/18 14:00 11/25/18 07:26 Reglan IV 10 mg Q8HR LENCHO Administration Multi-Ingred Cream/Lotion/Oil/Oint 1 applic 11/24/18 08:23 11/24/18 21:28 Artificial Tears Ophth Oint OU 1 applic Q4HR PRN Administration Dry Eye(s) Scopolamine 1 each 11/19/18 15:00 11/22/18 16:00 Transderm-Scop TD 1 each Q3D LENCHO Administration Simple Syrup 15 ml 11/14/18 14:20 Simple Syrup FEEDTUBE PRN PRN Hypoglycemia Simple Syrup 30 ml 11/14/18 14:20 Simple Syrup FEEDTUBE PRN PRN Hypoglycemia Sodium Bicarbonate 325 mg 11/14/18 14:20 Sodium Bicarbonate FEEDTUBE PRN PRN For Clogged Feeding Tube Sodium Hypochlorite 1 applic 11/16/18 13:00 11/24/18 21:28 Dakin's Half Strength TP 1 applicatio BID LENCHO Administration Nutrition/Malnutrition Assess - Dietary Evaluation Nutrition/Malnutrition Findings: Nutrition Notes Start: 11/14/18 10:33 Freq: Status: Active Protocol: Document 11/24/18 10:39 LM (Rec: 11/24/18 10:58 LM [id number]) Nutrition Notes Initial or Follow up Reassessment Current Diagnosis Acute Kidney Injury,Decubitus( Pressure Ulcer),Diabetes, Sepsis,Hypertension,Heart Failure,Respiratory Failure, Stroke Other Pertinent Diagnosis sacral wound, UTI, Dysphagia, Chronic encephalopathy Current Diet Vital AF 1.2 at 60 ml/hr Labs/Tests BG 137 Pertinent Medications Reviewed Height 5 ft 9 in Weight 96 kg Bivalve Body Weight (kg) 72.72 BMI 31.2 Subjective/Other Information TF running at 60 ml/hr. Pt tolerating TF. Percent of energy/protein needs met: 93%/100% Burn Absent Trauma Absent #1 Nutrition Diagnosis Inadequate oral intake Diagnosis Progress(for reassessment Continues documentation) Is patient on ventilator? No Is Patient Ambulatory and/or Out of Bed No REE-([facility]-confined to bed) [phone] Calculation Used for Recommendations [facility] Additional Notes Pro needs 1.2-2g/k-168g/ day Fluid needs 1ml/kcal Nutrition Intervention Change Diet Order: Continue TF Nutrition Support: Vital AF 1.2 at 60ml/hr with 100ml water flush q4h. Kcal 1,728 Protein (gm) 108 Carbohydrates (gm) 159 Fat (gm) 78 Fluid (mL) 1,168 Fiber (gm) 7 Goal #1 TF to meet at least 75% of energy and protein needs Anticipated Discharge Needs: Continue TF Follow-Up By: 12/01/18 Additional Comments F/U for TF tolerance and rate
[2018-11-25] MEDS: KCL 10MEQ/100ML 10 MEQ/100 ML BAG IV SCH ×2 (08:38→09:42)
[2018-11-25] MEDS ORDERED: MAGNESIUM SULFATE 3 GM in NACL 0.9% 100 ML IV ONE (09:00)
[2018-11-25] MEDS: HEPARIN SUB-Q SCH ×2 (09:26→22:39)
[2018-11-25] MEDS: PREVACID SOLUTAB FEEDTUBE SCH (09:27)
[2018-11-25] MEDS: NORVASC PO SCH (09:27)
[2018-11-25] MEDS: DAKIN'S HALF STRENGTH TP SCH ×3 (09:28→22:00)
[2018-11-25] MEDS: ZYVOX PO SCH ×2 (09:42→22:38)
--- NOTE | 2018-11-25 10:17 | Progress Note ---
Assessment and Plan Acute on chronic hypoxemic respiratory failure on MVS Severe sepsis with shock, off vasopressors VRE bacteremia UTI Large sacaral decubitus ulcer Acute on chronic metabolic encephalopathy Orophargyngeal dysphagia s/p PEG h/o CVAs Transaminitis probably secondary to hypotension Type 2 DM Hypernatremia Hypokalemia - keep on t-piece RTC as tolerated - keep on warming blanket for hypothermia - add Robinul for secretion control - get CXR to evaluate for aspiration - lasix 20 mgI.V. daily X 3 days - continue Lantus at 20 units SQ daily - continue amlodipine 5 mg p.o. daily - continue hydralazine 10 mg IV q4h prn SBP >/= 170 mmHg - continue scopolamine patch for secretion control - Trach care, airway clearance and secretion management - Lung protective strategies - Accuchecks with glycemic control, continue with insulin infusion per protocol - Douglass catheter for accurate intake and output monitoring in this critically ill patient with history of chronic douglass/urinary retention - Avoid nephrotoxins - VTE prophylaxis - Stress ulcer prophylaxis - Antibiotics per ID, de-escalate as indicated - Mobility and off loading for sacral decubitus - Wound care per RN & WCT - Optimize nutrition to help promote wound healing - Supportive transfusions as indicated, to keep HgB>7g/dL - Vasopressor support as indicated for MAP < 65 mmHg with blood pressure unresponsive to volume resuscitation - Continue to monitor hemodynamics closely - Keep Potassium at 4, to optimize respiratory muscle function - LTAC evaluation is ongoing - transfer to [facility] close to ICU ... re-evaluate in am & prn Awaiting further family decisions re goals of care CONDITION: CRITICAL PROGNOSIS; POOR CODE STATUS: FULL Discussed care plan with RT and RN. Discussed during ICU-IDT rounds Goals of care need to be re-addressed with family The high probability of a clinically significant, sudden or life threatening deterioration of the respiratory, cardiovascular,endocrine, system(s) required my full and direct attention, intervention and personal management. The aggregate critical care time was [34] minutes. This time is in addition to time spent performing reported procedures but includes the following: [x] Data Review and interpretation [x]Patient assessment and monitoring of vital signs [x] Documentation [x] Medication orders and management Subjective Date of service: 11/25/18 Principal diagnosis: Severe sepsis with shock; Ac and ch resp failure; Metabolic encephalopathy Interval history: Patient is seen today for: Severe sepsis with septic shock; Acute and chronic respiratory failure on MVS; Acute and chronic metabolic encephalopathy; Seen and examined at bedside; 24hour events reviewed; nursing and respiratory care staff consulted; resting peacefully in bed; on T-piece and tolerating well; did not need MVS overnight; he is hypothermic this morning though; AMS is persistent; discussed with his at bedside and she has not decided on surgical debridement for his sacral ulcer; oropharyngeal secretions large. Objective Vital Signs - 12hr 11/24/18 11/24/18 11/24/18 22:30 23:00 23:31 Temperature Pulse Rate 82 79 81 Pulse Rate [ From Monitor] Respiratory 11 L 11 L 11 L Rate Blood Pressure 110/59 125/54 114/48 O2 Sat by Pulse 99 99 99 Oximetry O2 Sat by Pulse Oximetry [ Assessment] 11/25/18 11/25/18 11/25/18 00:00 00:02 00:30 Temperature 96.4 F L Pulse Rate 79 80 Pulse Rate [ 79 From Monitor] Respiratory 17 15 Rate Blood Pressure 120/63 120/58 O2 Sat by Pulse 99 100 98 Oximetry O2 Sat by Pulse 100 Oximetry [ Assessment] 11/25/18 11/25/18 11/25/18 01:00 01:31 02:00 Temperature Pulse Rate 82 81 84 Pulse Rate [ From Monitor] Respiratory 11 L 15 17 Rate Blood Pressure 118/62 127/55 112/57 O2 Sat by Pulse 99 99 99 Oximetry O2 Sat by Pulse Oximetry [ Assessment] 11/25/18 11/25/18 11/25/18 02:31 03:01 03:30 Temperature Pulse Rate 88 83 80 Pulse Rate [ From Monitor] Respiratory 10 L 15 15 Rate Blood Pressure 112/57 114/63 114/66 O2 Sat by Pulse 100 97 98 Oximetry O2 Sat by Pulse Oximetry [ Assessment] 11/25/18 11/25/18 11/25/18 03:33 04:00 04:30 Temperature 98 F Pulse Rate 78 77 Pulse Rate [ 77 From Monitor] Respiratory 12 14 Rate Blood Pressure 125/64 124/64 O2 Sat by Pulse 100 99 97 Oximetry O2 Sat by Pulse Oximetry [ Assessment] 11/25/18 11/25/18 11/25/18 05:00 05:30 06:00 Temperature Pulse Rate 79 80 76 Pulse Rate [ From Monitor] Respiratory 14 17 18 Rate Blood Pressure 131/69 124/55 120/52 O2 Sat by Pulse 98 98 98 Oximetry O2 Sat by Pulse Oximetry [ Assessment] 11/25/18 11/25/18 11/25/18 06:30 07:00 07:30 Temperature Pulse Rate 79 78 82 Pulse Rate [ From Monitor] Respiratory 11 L 12 14 Rate Blood Pressure 129/57 134/60 139/68 O2 Sat by Pulse 100 99 98 Oximetry O2 Sat by Pulse Oximetry [ Assessment] 11/25/18 11/25/18 11/25/18 07:38 08:00 08:01 Temperature 97.5 F L Pulse Rate 81 81 82 Pulse Rate [ 81 From Monitor] Respiratory 12 12 14 Rate Blood Pressure 139/68 134/60 O2 Sat by Pulse 99 99 99 Oximetry O2 Sat by Pulse Oximetry [ Assessment] 11/25/18 09:27 Temperature Pulse Rate 84 Pulse Rate [ From Monitor] Respiratory Rate Blood Pressure 132/59 O2 Sat by Pulse Oximetry O2 Sat by Pulse Oximetry [ Assessment] Constitutional: no acute distress, other (elderly looking AAM on MVS; trach in place) Eyes: non-icteric ENT: oropharynx moist Neck: supple, no lymphadenopathy, no JVD, other (midline trach) Effort: mildly labored Ascultation: Bilateral: diminished breath sounds, rhonchi (scant in bases) Percussion: Bilateral: not dull Cardiovascular: regular rate and rhythm, other (S1,S2) Gastrointestinal: normoactive bowel sounds, soft, non-distended, other (PEG in place, chronic douglass catheter) Integumentary: decubitus ulcer (see wound care notes) Extremities: no cyanosis, pink and warm, pulses normal, edema (2+) Neurologic: unable to assess (on vent), other (encephalopathic, unresponsive) Psychiatric: other (unable to assess) CBC and BMP: 11/25/18 04:24 11/25/18 04:24 ABG, PT/INR, D-dimer: ABG POC ABG pH 7.414 (7.35-7.45) 11/23/18 05:26 ABG pH 7.367 pH Units (7.350-7.450) 11/24/18 20:50 POC ABG pCO2 35.8 (35-45) 11/23/18 05:26 ABG pCO2 45.8 mm Hg 11/24/18 20:50 POC ABG pO2 93 (80-105) 11/23/18 05:26 ABG pO2 89.9 mm Hg (80.0-90.0) 11/24/18 20:50 POC ABG HCO3 22.9 (22-26 mml/L) 11/23/18 05:26 POC ABG Total CO2 24 (23-27mmol/L) 11/23/18 05:26 POC ABG O2 Sat 97 11/23/18 05:26 ABG O2 Saturation 97.1 % (95.0-99.0) 11/24/18 20:50 Abnormal lab findings: Abnormal Labs 11/13/18 11/13/18 11/13/18 03:30 14:00 14:00 WBC 3.8 L RBC 2.80 L Hgb 7.4 L Hct 22.9 L MCV 82 L MCH 27 L MCHC RDW 19.0 H Lymph % (Auto) [place] % (Auto) Eos % (Auto) [place] # Seg Neutrophils % Seg Neuts % (Manual) 87.0 H Lymphocytes % (Manual) 5.0 L Eosinophils % (Manual) 7.0 H Seg Neutrophils # Lymphocytes # (Manual) 0.2 L POC ABG pH POC ABG pO2 ABG pO2 ABG Base Excess ABG Hemoglobin Oxyhemoglobin Sodium 147 H Potassium Chloride Carbon Dioxide 33 H BUN 50 H Creatinine Glucose 193 H POC Glucose Lactic Acid 3.70 H* Calcium 8.1 L Magnesium AST 154 H ALT 134 H Alkaline Phosphatase 586 H Total Creatine Kinase CK-MB (CK-2) Troponin T NT-Pro-B Natriuret Pep Albumin 1.2 L Triglycerides LDL Cholesterol Direct HDL Cholesterol Urine WBC (Auto) Crossmatch 11/13/18 11/13/18 11/13/18 14:00 14:44 14:49 WBC RBC Hgb Hct MCV MCH MCHC RDW Lymph % (Auto) [place] % (Auto) Eos % (Auto) [place] # Seg Neutrophils % Seg Neuts % (Manual) Lymphocytes % (Manual) Eosinophils % (Manual) Seg Neutrophils # Lymphocytes # (Manual) POC ABG pH POC ABG pO2 ABG pO2 ABG Base Excess ABG Hemoglobin Oxyhemoglobin Sodium Potassium Chloride Carbon Dioxide BUN Creatinine Glucose POC Glucose Lactic Acid 2.60 H* Calcium Magnesium AST ALT Alkaline Phosphatase Total Creatine Kinase 510 H CK-MB (CK-2) 4.4 H Troponin T 0.348 H* NT-Pro-B Natriuret Pep 3679 H Albumin Triglycerides 284 H LDL Cholesterol Direct 4 L HDL Cholesterol 7 L Urine WBC (Auto) 36.0 H Crossmatch 11/13/18 11/13/18 11/13/18 14:49 14:49 14:52 WBC RBC Hgb Hct MCV MCH MCHC RDW Lymph % (Auto) [place] % (Auto) Eos % (Auto) [place] # Seg Neutrophils % Seg Neuts % (Manual) Lymphocytes % (Manual) Eosinophils % (Manual) Seg Neutrophils # Lymphocytes # (Manual) POC ABG pH POC ABG pO2 ABG pO2 ABG Base Excess ABG Hemoglobin Oxyhemoglobin Sodium Potassium Chloride Carbon Dioxide BUN Creatinine Glucose POC Glucose 205 H Lactic Acid 3.90 H* Calcium Magnesium AST ALT Alkaline Phosphatase Total Creatine Kinase CK-MB (CK-2) Troponin T NT-Pro-B Natriuret Pep Albumin Triglycerides LDL Cholesterol Direct HDL Cholesterol Urine WBC (Auto) Crossmatch See Detail 11/13/18 11/13/18 11/13/18 16:58 17:13 19:46 WBC RBC Hgb Hct MCV MCH MCHC RDW Lymph % (Auto) [place] % (Auto) Eos % (Auto) [place] # Seg Neutrophils % Seg Neuts % (Manual) Lymphocytes % (Manual) Eosinophils % (Manual) Seg Neutrophils # Lymphocytes # (Manual) POC ABG pH 7.573 H POC ABG pO2 ABG pO2 ABG Base Excess ABG Hemoglobin Oxyhemoglobin Sodium Potassium Chloride Carbon Dioxide BUN Creatinine Glucose POC Glucose Lactic Acid 3.90 H* 4.40 H* Calcium Magnesium AST ALT Alkaline Phosphatase Total Creatine Kinase CK-MB (CK-2) Troponin T NT-Pro-B Natriuret Pep Albumin Triglycerides LDL Cholesterol Direct HDL Cholesterol Urine WBC (Auto) Crossmatch 11/13/18 11/14/18 11/14/18 21:34 04:50 05:23 WBC RBC Hgb Hct MCV MCH MCHC RDW Lymph % (Auto) [place] % (Auto) Eos % (Auto) [place] # Seg Neutrophils % Seg Neuts % (Manual) Lymphocytes % (Manual) Eosinophils % (Manual) Seg Neutrophils # Lymphocytes # (Manual) POC ABG pH POC ABG pO2 ABG pO2 120.8 H ABG Base Excess ABG Hemoglobin 10.9 L Oxyhemoglobin Sodium Potassium Chloride Carbon Dioxide BUN Creatinine Glucose POC Glucose 263 H Lactic Acid 4.50 H* Calcium Magnesium AST ALT Alkaline Phosphatase Total Creatine Kinase CK-MB (CK-2) Troponin T NT-Pro-B Natriuret Pep Albumin Triglycerides LDL Cholesterol Direct HDL Cholesterol Urine WBC (Auto) Crossmatch 11/14/18 11/14/18 11/14/18 05:46 08:02 12:42 WBC RBC Hgb Hct MCV MCH MCHC RDW Lymph % (Auto) [place] % (Auto) Eos % (Auto) [place] # Seg Neutrophils % Seg Neuts % (Manual) Lymphocytes % (Manual) Eosinophils % (Manual) Seg Neutrophils # Lymphocytes # (Manual) POC ABG pH 7.463 H POC ABG pO2 136 H ABG pO2 ABG Base Excess ABG Hemoglobin Oxyhemoglobin Sodium Potassium Chloride Carbon Dioxide BUN Creatinine Glucose POC Glucose 213 H Lactic Acid 2.70 H* Calcium Magnesium AST ALT Alkaline Phosphatase Total Creatine Kinase CK-MB (CK-2) Troponin T NT-Pro-B Natriuret Pep Albumin Triglycerides LDL Cholesterol Direct HDL Cholesterol Urine WBC (Auto) Crossmatch 11/14/18 11/14/18 11/14/18 14:17 14:17 15:50 WBC 13.1 H 13.1 H RBC 2.36 L 2.36 L Hgb 6.1 L 6.1 L Hct 19.6 L* 19.4 L* MCV 83 L 82 L MCH 26 L 26 L MCHC 31 L 31 L RDW 19.4 H 19.3 H Lymph % (Auto) [place] % (Auto) Eos % (Auto) [place] # Seg Neutrophils % Seg Neuts % (Manual) Lymphocytes % (Manual) Eosinophils % (Manual) Seg Neutrophils # Lymphocytes # (Manual) POC ABG pH POC ABG pO2 ABG pO2 ABG Base Excess ABG Hemoglobin Oxyhemoglobin Sodium 148 H Potassium Chloride 110.3 H Carbon Dioxide BUN 56 H Creatinine Glucose 203 H POC Glucose Lactic Acid Calcium 7.6 L Magnesium AST ALT Alkaline Phosphatase Total Creatine Kinase CK-MB (CK-2) Troponin T NT-Pro-B Natriuret Pep Albumin Triglycerides LDL Cholesterol Direct HDL Cholesterol Urine WBC (Auto) Crossmatch 11/14/18 11/14/18 11/15/18 18:19 23:52 05:10 WBC 16.2 H RBC 3.22 L Hgb 8.8 L Hct 26.8 L D MCV 83 L MCH 27 L MCHC RDW 16.8 H Lymph % (Auto) [place] % (Auto) Eos % (Auto) [place] # Seg Neutrophils % Seg Neuts % (Manual) Lymphocytes % (Manual) Eosinophils % (Manual) Seg Neutrophils # Lymphocytes # (Manual) POC ABG pH POC ABG pO2 ABG pO2 ABG Base Excess ABG Hemoglobin Oxyhemoglobin Sodium Potassium Chloride Carbon Dioxide BUN Creatinine Glucose POC Glucose 213 H 242 H Lactic Acid Calcium Magnesium AST ALT Alkaline Phosphatase Total Creatine Kinase CK-MB (CK-2) Troponin T NT-Pro-B Natriuret Pep Albumin Triglycerides LDL Cholesterol Direct HDL Cholesterol Urine WBC (Auto) Crossmatch 11/15/18 11/15/18 11/15/18 05:10 05:36 11:15 WBC RBC Hgb Hct MCV MCH MCHC RDW Lymph % (Auto) [place] % (Auto) Eos % (Auto) [place] # Seg Neutrophils % Seg Neuts % (Manual) Lymphocytes % (Manual) Eosinophils % (Manual) Seg Neutrophils # Lymphocytes # (Manual) POC ABG pH POC ABG pO2 ABG pO2 ABG Base Excess ABG Hemoglobin Oxyhemoglobin Sodium 148 H Potassium 3.5 L Chloride 112.8 H Carbon Dioxide BUN 51 H Creatinine Glucose 154 H POC Glucose 143 H 139 H Lactic Acid Calcium 7.8 L Magnesium AST ALT Alkaline Phosphatase Total Creatine Kinase CK-MB (CK-2) Troponin T NT-Pro-B Natriuret Pep Albumin Triglycerides LDL Cholesterol Direct HDL Cholesterol Urine WBC (Auto) Crossmatch 11/15/18 11/15/18 11/15/18 12:00 18:28 20:56 WBC RBC Hgb Hct MCV MCH MCHC RDW Lymph % (Auto) [place] % (Auto) Eos % (Auto) [place] # Seg Neutrophils % Seg Neuts % (Manual) Lymphocytes % (Manual) Eosinophils % (Manual) Seg Neutrophils # Lymphocytes # (Manual) POC ABG pH POC ABG pO2 ABG pO2 ABG Base Excess ABG Hemoglobin Oxyhemoglobin Sodium 148 H Potassium 3.2 L Chloride 113.0 H Carbon Dioxide BUN 44 H Creatinine Glucose 144 H POC Glucose 159 H 150 H Lactic Acid Calcium 7.7 L Magnesium AST ALT Alkaline Phosphatase Total Creatine Kinase CK-MB (CK-2) Troponin T NT-Pro-B Natriuret Pep Albumin Triglycerides LDL Cholesterol Direct HDL Cholesterol Urine WBC (Auto) Crossmatch 11/15/18 11/16/18 11/16/18 23:32 03:40 03:45 WBC 16.1 H RBC 3.30 L Hgb 8.9 L Hct 27.9 L MCV MCH 27 L MCHC RDW 17.5 H Lymph % (Auto) [place] % (Auto) Eos % (Auto) [place] # Seg Neutrophils % Seg Neuts % (Manual) Lymphocytes % (Manual) Eosinophils % (Manual) Seg Neutrophils # Lymphocytes # (Manual) POC ABG pH POC ABG pO2 ABG pO2 147.0 H ABG Base Excess ABG Hemoglobin 12.0 L Oxyhemoglobin Sodium Potassium Chloride Carbon Dioxide BUN Creatinine Glucose POC Glucose 131 H Lactic Acid Calcium Magnesium AST ALT Alkaline Phosphatase Total Creatine Kinase CK-MB (CK-2) Troponin T NT-Pro-B Natriuret Pep Albumin Triglycerides LDL Cholesterol Direct HDL Cholesterol Urine WBC (Auto) Crossmatch 11/16/18 11/16/18 11/16/18 03:45 05:15 15:14 WBC RBC Hgb Hct MCV MCH MCHC RDW Lymph % (Auto) [place] % (Auto) Eos % (Auto) [place] # Seg Neutrophils % Seg Neuts % (Manual) Lymphocytes % (Manual) Eosinophils % (Manual) Seg Neutrophils # Lymphocytes # (Manual) POC ABG pH POC ABG pO2 ABG pO2 ABG Base Excess ABG Hemoglobin Oxyhemoglobin Sodium 149 H Potassium 3.5 L Chloride 116.2 H Carbon Dioxide 21 L BUN 41 H Creatinine Glucose 146 H POC Glucose 155 H 215 H Lactic Acid Calcium 7.7 L Magnesium AST ALT Alkaline Phosphatase Total Creatine Kinase CK-MB (CK-2) Troponin T NT-Pro-B Natriuret Pep Albumin Triglycerides LDL Cholesterol Direct HDL Cholesterol Urine WBC (Auto) Crossmatch 11/16/18 11/16/18 11/17/18 18:20 23:49 04:49 WBC 12.1 H RBC 3.34 L Hgb 9.0 L Hct 28.1 L MCV MCH 27 L MCHC RDW 17.5 H Lymph % (Auto) [place] % (Auto) Eos % (Auto) [place] # Seg Neutrophils % Seg Neuts % (Manual) Lymphocytes % (Manual) Eosinophils % (Manual) Seg Neutrophils # Lymphocytes # (Manual) POC ABG pH POC ABG pO2 ABG pO2 ABG Base Excess ABG Hemoglobin Oxyhemoglobin Sodium Potassium Chloride Carbon Dioxide BUN Creatinine Glucose POC Glucose 230 H 189 H Lactic Acid Calcium Magnesium AST ALT Alkaline Phosphatase Total Creatine Kinase CK-MB (CK-2) Troponin T NT-Pro-B Natriuret Pep Albumin Triglycerides LDL Cholesterol Direct HDL Cholesterol Urine WBC (Auto) Crossmatch 11/17/18 11/17/18 11/17/18 04:49 05:45 14:16 WBC RBC Hgb Hct MCV MCH MCHC RDW Lymph % (Auto) [place] % (Auto) Eos % (Auto) [place] # Seg Neutrophils % Seg Neuts % (Manual) Lymphocytes % (Manual) Eosinophils % (Manual) Seg Neutrophils # Lymphocytes # (Manual) POC ABG pH POC ABG pO2 ABG pO2 ABG Base Excess ABG Hemoglobin Oxyhemoglobin Sodium 150 H Potassium 3.2 L Chloride 118.9 H Carbon Dioxide 20 L BUN 38 H Creatinine 0.7 L Glucose 164 H POC Glucose 181 H 172 H Lactic Acid Calcium 7.7 L Magnesium AST ALT Alkaline Phosphatase Total Creatine Kinase CK-MB (CK-2) Troponin T NT-Pro-B Natriuret Pep Albumin Triglycerides LDL Cholesterol Direct HDL Cholesterol Urine WBC (Auto) Crossmatch 11/17/18 11/17/18 11/18/18 23:36 Unknown 04:10 WBC RBC Hgb Hct MCV MCH MCHC RDW Lymph % (Auto) [place] % (Auto) Eos % (Auto) [place] # Seg Neutrophils % Seg Neuts % (Manual) Lymphocytes % (Manual) Eosinophils % (Manual) Seg Neutrophils # Lymphocytes # (Manual) POC ABG pH POC ABG pO2 ABG pO2 105.9 H 101.8 H ABG Base Excess -2.3 L -3.2 L ABG Hemoglobin 11.5 L 10.2 L Oxyhemoglobin Sodium Potassium Chloride Carbon Dioxide BUN Creatinine Glucose POC Glucose 214 H Lactic Acid Calcium Magnesium AST ALT Alkaline Phosphatase Total Creatine Kinase CK-MB (CK-2) Troponin T NT-Pro-B Natriuret Pep Albumin Triglycerides LDL Cholesterol Direct HDL Cholesterol Urine WBC (Auto) Crossmatch 11/18/18 11/18/18 11/18/18 04:37 04:37 05:36 WBC RBC 3.10 L Hgb 8.5 L Hct 26.8 L MCV MCH 27 L MCHC RDW 17.8 H Lymph % (Auto) 12.8 L [place] % (Auto) 8.5 H Eos % (Auto) [place] # 0.9 H Seg Neutrophils % 75.8 H Seg Neuts % (Manual) Lymphocytes % (Manual) Eosinophils % (Manual) Seg Neutrophils # 8.0 H Lymphocytes # (Manual) POC ABG pH POC ABG pO2 ABG pO2 ABG Base Excess ABG Hemoglobin Oxyhemoglobin Sodium 148 H Potassium 3.3 L Chloride 118.3 H Carbon Dioxide 20 L BUN 32 H Creatinine 0.7 L Glucose 154 H POC Glucose 171 H Lactic Acid Calcium 7.4 L Magnesium AST ALT Alkaline Phosphatase Total Creatine Kinase CK-MB (CK-2) Troponin T NT-Pro-B Natriuret Pep Albumin Triglycerides LDL Cholesterol Direct HDL Cholesterol Urine WBC (Auto) Crossmatch 11/18/18 11/18/18 11/18/18 12:10 17:27 23:56 WBC RBC Hgb Hct MCV MCH MCHC RDW Lymph % (Auto) [place] % (Auto) Eos % (Auto) [place] # Seg Neutrophils % Seg Neuts % (Manual) Lymphocytes % (Manual) Eosinophils % (Manual) Seg Neutrophils # Lymphocytes # (Manual) POC ABG pH POC ABG pO2 ABG pO2 ABG Base Excess ABG Hemoglobin Oxyhemoglobin Sodium Potassium Chloride Carbon Dioxide BUN Creatinine Glucose POC Glucose 244 H 239 H 241 H Lactic Acid Calcium Magnesium AST ALT Alkaline Phosphatase Total Creatine Kinase CK-MB (CK-2) Troponin T NT-Pro-B Natriuret Pep Albumin Triglycerides LDL Cholesterol Direct HDL Cholesterol Urine WBC (Auto) Crossmatch 11/19/18 11/19/18 11/19/18 03:45 04:27 06:37 WBC RBC Hgb Hct MCV MCH MCHC RDW Lymph % (Auto) [place] % (Auto) Eos % (Auto) [place] # Seg Neutrophils % Seg Neuts % (Manual) Lymphocytes % (Manual) Eosinophils % (Manual) Seg Neutrophils # Lymphocytes # (Manual) POC ABG pH POC ABG pO2 ABG pO2 95.5 H ABG Base Excess -4.0 L ABG Hemoglobin 5.9 L Oxyhemoglobin Sodium 147 H Potassium Chloride 119.2 H Carbon Dioxide 20 L BUN 28 H Creatinine 0.6 L Glucose 181 H POC Glucose 220 H Lactic Acid Calcium 7.6 L Magnesium AST ALT Alkaline Phosphatase Total Creatine Kinase CK-MB (CK-2) Troponin T NT-Pro-B Natriuret Pep Albumin Triglycerides LDL Cholesterol Direct HDL Cholesterol Urine WBC (Auto) Crossmatch 11/19/18 11/19/18 11/19/18 06:41 11:27 17:31 WBC RBC 3.28 L Hgb 9.0 L Hct 28.2 L MCV MCH MCHC RDW 17.9 H Lymph % (Auto) [place] % (Auto) 11.0 H Eos % (Auto) [place] # 1.1 H Seg Neutrophils % Seg Neuts % (Manual) Lymphocytes % (Manual) Eosinophils % (Manual) Seg Neutrophils # Lymphocytes # (Manual) POC ABG pH POC ABG pO2 ABG pO2 ABG Base Excess ABG Hemoglobin Oxyhemoglobin Sodium Potassium Chloride Carbon Dioxide BUN Creatinine Glucose POC Glucose 280 H 300 H Lactic Acid Calcium Magnesium AST ALT Alkaline Phosphatase Total Creatine Kinase CK-MB (CK-2) Troponin T NT-Pro-B Natriuret Pep Albumin Triglycerides LDL Cholesterol Direct HDL Cholesterol Urine WBC (Auto) Crossmatch 11/19/18 11/20/18 11/20/18 23:30 03:03 03:03 WBC RBC 3.04 L Hgb 8.4 L Hct 26.1 L MCV MCH MCHC RDW 18.1 H Lymph % (Auto) [place] % (Auto) 11.0 H Eos % (Auto) [place] # 0.9 H Seg Neutrophils % Seg Neuts % (Manual) Lymphocytes % (Manual) Eosinophils % (Manual) Seg Neutrophils # Lymphocytes # (Manual) POC ABG pH POC ABG pO2 ABG pO2 ABG Base Excess ABG Hemoglobin Oxyhemoglobin Sodium 148 H Potassium Chloride 117.4 H Carbon Dioxide BUN 24 H Creatinine 0.6 L Glucose 238 H POC Glucose 251 H Lactic Acid Calcium 7.9 L Magnesium AST ALT Alkaline Phosphatase Total Creatine Kinase CK-MB (CK-2) Troponin T NT-Pro-B Natriuret Pep Albumin Triglycerides LDL Cholesterol Direct HDL Cholesterol Urine WBC (Auto) Crossmatch 11/20/18 11/20/18 11/20/18 04:20 05:15 12:21 WBC RBC Hgb Hct MCV MCH MCHC RDW Lymph % (Auto) [place] % (Auto) Eos % (Auto) [place] # Seg Neutrophils % Seg Neuts % (Manual) Lymphocytes % (Manual) Eosinophils % (Manual) Seg Neutrophils # Lymphocytes # (Manual) POC ABG pH POC ABG pO2 ABG pO2 91.3 H ABG Base Excess -2.6 L ABG Hemoglobin 8.3 L Oxyhemoglobin Sodium Potassium Chloride Carbon Dioxide BUN Creatinine Glucose POC Glucose 213 H 318 H Lactic Acid Calcium Magnesium AST ALT Alkaline Phosphatase Total Creatine Kinase CK-MB (CK-2) Troponin T NT-Pro-B Natriuret Pep Albumin Triglycerides LDL Cholesterol Direct HDL Cholesterol Urine WBC (Auto) Crossmatch 11/20/18 11/20/18 11/20/18 18:01 20:50 23:36 WBC RBC Hgb Hct MCV MCH MCHC RDW Lymph % (Auto) [place] % (Auto) Eos % (Auto) [place] # Seg Neutrophils % Seg Neuts % (Manual) Lymphocytes % (Manual) Eosinophils % (Manual) Seg Neutrophils # Lymphocytes # (Manual) POC ABG pH POC ABG pO2 ABG pO2 90.8 H ABG Base Excess -2.1 L ABG Hemoglobin 13.4 L Oxyhemoglobin 94.9 L Sodium Potassium Chloride Carbon Dioxide BUN Creatinine Glucose POC Glucose 301 H 290 H Lactic Acid Calcium Magnesium AST ALT Alkaline Phosphatase Total Creatine Kinase CK-MB (CK-2) Troponin T NT-Pro-B Natriuret Pep Albumin Triglycerides LDL Cholesterol Direct HDL Cholesterol Urine WBC (Auto) Crossmatch 11/21/18 11/21/18 11/21/18 03:09 03:09 05:10 WBC RBC 3.05 L Hgb 8.5 L Hct 26.1 L MCV MCH MCHC RDW 18.7 H Lymph % (Auto) [place] % (Auto) 12.2 H Eos % (Auto) [place] # 0.9 H Seg Neutrophils % Seg Neuts % (Manual) Lymphocytes % (Manual) Eosinophils % (Manual) Seg Neutrophils # Lymphocytes # (Manual) POC ABG pH POC ABG pO2 ABG pO2 ABG Base Excess ABG Hemoglobin Oxyhemoglobin Sodium 150 H Potassium 3.5 L Chloride 118.5 H Carbon Dioxide BUN 22 H Creatinine 0.6 L Glucose 279 H POC Glucose 307 H Lactic Acid Calcium 7.7 L Magnesium AST ALT Alkaline Phosphatase Total Creatine Kinase CK-MB (CK-2) Troponin T NT-Pro-B Natriuret Pep Albumin Triglycerides LDL Cholesterol Direct HDL Cholesterol Urine WBC (Auto) Crossmatch 11/21/18 11/21/18 11/21/18 11:24 17:23 23:20 WBC RBC Hgb Hct MCV MCH MCHC RDW Lymph % (Auto) [place] % (Auto) Eos % (Auto) [place] # Seg Neutrophils % Seg Neuts % (Manual) Lymphocytes % (Manual) Eosinophils % (Manual) Seg Neutrophils # Lymphocytes # (Manual) POC ABG pH POC ABG pO2 ABG pO2 ABG Base Excess ABG Hemoglobin Oxyhemoglobin Sodium Potassium Chloride Carbon Dioxide BUN Creatinine Glucose POC Glucose 324 H 288 H 254 H Lactic Acid Calcium Magnesium AST ALT Alkaline Phosphatase Total Creatine Kinase CK-MB (CK-2) Troponin T NT-Pro-B Natriuret Pep Albumin Triglycerides LDL Cholesterol Direct HDL Cholesterol Urine WBC (Auto) Crossmatch 11/22/18 11/22/18 11/22/18 03:50 05:43 06:10 WBC RBC 2.93 L Hgb 8.1 L Hct 25.2 L MCV MCH MCHC RDW 18.6 H Lymph % (Auto) [place] % (Auto) 10.9 H Eos % (Auto) 4.4 H [place] # 0.9 H Seg Neutrophils % Seg Neuts % (Manual) Lymphocytes % (Manual) Eosinophils % (Manual) Seg Neutrophils # Lymphocytes # (Manual) POC ABG pH POC ABG pO2 ABG pO2 94.6 H ABG Base Excess ABG Hemoglobin 6.5 L Oxyhemoglobin Sodium Potassium Chloride Carbon Dioxide BUN Creatinine Glucose POC Glucose 227 H Lactic Acid Calcium Magnesium AST ALT Alkaline Phosphatase Total Creatine Kinase CK-MB (CK-2) Troponin T NT-Pro-B Natriuret Pep Albumin Triglycerides LDL Cholesterol Direct HDL Cholesterol Urine WBC (Auto) Crossmatch 11/22/18 11/22/18 11/22/18 06:10 11:35 17:07 WBC RBC Hgb Hct MCV MCH MCHC RDW Lymph % (Auto) [place] % (Auto) Eos % (Auto) [place] # Seg Neutrophils % Seg Neuts % (Manual) Lymphocytes % (Manual) Eosinophils % (Manual) Seg Neutrophils # Lymphocytes # (Manual) POC ABG pH POC ABG pO2 ABG pO2 ABG Base Excess ABG Hemoglobin Oxyhemoglobin Sodium 146 H Potassium 3.3 L Chloride 114.8 H Carbon Dioxide BUN 21 H Creatinine 0.5 L Glucose 214 H POC Glucose 262 H 205 H Lactic Acid Calcium 7.7 L Magnesium AST ALT Alkaline Phosphatase Total Creatine Kinase CK-MB (CK-2) Troponin T NT-Pro-B Natriuret Pep Albumin Triglycerides LDL Cholesterol Direct HDL Cholesterol Urine WBC (Auto) Crossmatch 11/22/18 11/23/18 11/23/18 23:23 05:35 06:48 WBC RBC 2.90 L Hgb 8.0 L Hct 25.1 L MCV MCH MCHC RDW 18.7 H Lymph % (Auto) [place] % (Auto) 8.7 H Eos % (Auto) 4.5 H [place] # Seg Neutrophils % Seg Neuts % (Manual) Lymphocytes % (Manual) Eosinophils % (Manual) Seg Neutrophils # Lymphocytes # (Manual) POC ABG pH POC ABG pO2 ABG pO2 ABG Base Excess ABG Hemoglobin Oxyhemoglobin Sodium Potassium Chloride Carbon Dioxide BUN Creatinine Glucose POC Glucose 165 H 140 H Lactic Acid Calcium Magnesium AST ALT Alkaline Phosphatase Total Creatine Kinase CK-MB (CK-2) Troponin T NT-Pro-B Natriuret Pep Albumin Triglycerides LDL Cholesterol Direct HDL Cholesterol Urine WBC (Auto) Crossmatch 11/23/18 11/23/18 11/23/18 06:48 12:00 17:16 WBC RBC Hgb Hct MCV MCH MCHC RDW Lymph % (Auto) [place] % (Auto) Eos % (Auto) [place] # Seg Neutrophils % Seg Neuts % (Manual) Lymphocytes % (Manual) Eosinophils % (Manual) Seg Neutrophils # Lymphocytes # (Manual) POC ABG pH POC ABG pO2 ABG pO2 ABG Base Excess ABG Hemoglobin Oxyhemoglobin Sodium 146 H Potassium Chloride 115.4 H Carbon Dioxide BUN Creatinine 0.4 L Glucose 144 H POC Glucose 199 H 207 H Lactic Acid Calcium 7.8 L Magnesium AST ALT Alkaline Phosphatase Total Creatine Kinase CK-MB (CK-2) Troponin T NT-Pro-B Natriuret Pep Albumin Triglycerides LDL Cholesterol Direct HDL Cholesterol Urine WBC (Auto) Crossmatch 11/23/18 11/23/18 11/24/18 22:23 23:57 05:38 WBC RBC Hgb Hct MCV MCH MCHC RDW Lymph % (Auto) [place] % (Auto) Eos % (Auto) [place] # Seg Neutrophils % Seg Neuts % (Manual) Lymphocytes % (Manual) Eosinophils % (Manual) Seg Neutrophils # Lymphocytes # (Manual) POC ABG pH POC ABG pO2 ABG pO2 ABG Base Excess ABG Hemoglobin Oxyhemoglobin Sodium Potassium Chloride Carbon Dioxide BUN Creatinine Glucose POC Glucose 186 H 172 H 137 H Lactic Acid Calcium Magnesium AST ALT Alkaline Phosphatase Total Creatine Kinase CK-MB (CK-2) Troponin T NT-Pro-B Natriuret Pep Albumin Triglycerides LDL Cholesterol Direct HDL Cholesterol Urine WBC (Auto) Crossmatch 11/24/18 11/24/18 11/24/18 12:23 17:53 20:50 WBC RBC Hgb Hct MCV MCH MCHC RDW Lymph % (Auto) [place] % (Auto) Eos % (Auto) [place] # Seg Neutrophils % Seg Neuts % (Manual) Lymphocytes % (Manual) Eosinophils % (Manual) Seg Neutrophils # Lymphocytes # (Manual) POC ABG pH POC ABG pO2 ABG pO2 ABG Base Excess ABG Hemoglobin 8.2 L Oxyhemoglobin 94.8 L Sodium Potassium Chloride Carbon Dioxide BUN Creatinine Glucose POC Glucose 168 H 170 H Lactic Acid Calcium Magnesium AST ALT Alkaline Phosphatase Total Creatine Kinase CK-MB (CK-2) Troponin T NT-Pro-B Natriuret Pep Albumin Triglycerides LDL Cholesterol Direct HDL Cholesterol Urine WBC (Auto) Crossmatch 11/24/18 11/24/18 11/25/18 21:11 23:46 04:24 WBC RBC 2.78 L Hgb 7.7 L Hct 23.7 L MCV MCH MCHC RDW 18.7 H Lymph % (Auto) [place] % (Auto) Eos % (Auto) [place] # Seg Neutrophils % Seg Neuts % (Manual) Lymphocytes % (Manual) Eosinophils % (Manual) Seg Neutrophils # Lymphocytes # (Manual) POC ABG pH POC ABG pO2 ABG pO2 ABG Base Excess ABG Hemoglobin Oxyhemoglobin Sodium Potassium Chloride Carbon Dioxide BUN Creatinine Glucose POC Glucose 190 H 169 H Lactic Acid Calcium Magnesium AST ALT Alkaline Phosphatase Total Creatine Kinase CK-MB (CK-2) Troponin T NT-Pro-B Natriuret Pep Albumin Triglycerides LDL Cholesterol Direct HDL Cholesterol Urine WBC (Auto) Crossmatch 11/25/18 11/25/18 11/25/18 04:24 04:24 05:14 WBC RBC Hgb Hct MCV MCH MCHC RDW Lymph % (Auto) [place] % (Auto) Eos % (Auto) [place] # Seg Neutrophils % Seg Neuts % (Manual) Lymphocytes % (Manual) Eosinophils % (Manual) Seg Neutrophils # Lymphocytes # (Manual) POC ABG pH POC ABG pO2 ABG pO2 ABG Base Excess ABG Hemoglobin Oxyhemoglobin Sodium Potassium 3.5 L Chloride 108.1 H Carbon Dioxide BUN Creatinine 0.4 L Glucose 119 H POC Glucose 138 H Lactic Acid Calcium 7.9 L Magnesium 1.50 L AST ALT Alkaline Phosphatase Total Creatine Kinase CK-MB (CK-2) Troponin T NT-Pro-B Natriuret Pep Albumin Triglycerides LDL Cholesterol Direct HDL Cholesterol Urine WBC (Auto) Crossmatch Allied health notes reviewed: nursing
[2018-11-25] MEDS ORDERED: POTASSIUM CHLORIDE FEEDTUBE ONE (11:00)
[2018-11-25] MEDS: LASIX IV SCH (11:58)
--- NOTE | 2018-11-25 12:14 | XRay Report ---
CHEST 1 VIEW INDICATION: pulmonary edema. COMPARISON: 11/19/2018 FINDINGS: Support devices: Tracheostomy tube is satisfactory and unchanged. Heart: Within normal limits. Lungs/Pleura: Continued opacification of the left lung base and more diffuse opacification of the lef t hemithorax. Increased bilateral perihilar patchy opacities. Pulmonary vasculature: Increased with indistinctness vessels. Additional findings: None. IMPRESSION: Increased pulmonary edema and left pleural effusion. Signer Name: Ronny Jackson MD Signed: 11/25/2018 12:09 PM Workstation Name: [id number]
--- NOTE | 2018-11-25 14:08 | Progress Note ---
Assessment and Plan Cultures: 11/13 BCx - VRE 11/13 UCx - >100k mixed kole 11/13 Sputum Cx - not run due to contamination 11/16/2018 Blood culture: no growth thus far A/P: 77 yo M PMHx CVA, seizures, HTN, DM2 admitted for worsenign respiratory status. 1. Septic shock secondary to VRE bacteremia: Off pressors. Source: urine v/s large sacral decubitus ulcer. TTE poor windows, if repeat blood cultures remain negative, would not recommend GLORIA since overall prognosis remains extremely poor and he is not going to be a candidate for any valve surgeries. Repeat blood cultures are negative. 2. Acute on chronic respiratory failure - CXR with congestion, no focal infiltrate to suggest pneumonia. VRE / Enterococcus rarely causes pneumonia. 3. UTI - Urine cultures with mixed kole. >100 CFU, probably cause of Enterococcal bacteremia. 4. Large sacral decubitus ulcer, infected, with eschar: could be the source of the VRE bacteremia. Appreciate General Surgery recommendations. Agree that progn osis is extremely poor. No plans for debridement now. 5. DM-2 6. Hx of CVA: s/p trach and PEG. 7. Elevated LFTs: probably from sepsis. RUQ US showed collapsed GB, no gallstones, trace ascites and hepatic steatosis. Recs: - continue PO Linezolid 600 mg BID. Stop date 11/29. Prolonged abx are going to be futile. - monitor platelets while on linezolid - noted cancellation of wound debridement as patient would not benefit per surgery and family non-committal. - continue wound care and contact isolation - overall prognosis remains extremely poor Thank you for the consult, we will continue to follow. Darcy Noonan MD [facility] M: [phone] O: [phone] F: [phone] Subjective Date of service: 11/25/18 Principal diagnosis: Severe sepsis with shock; Ac and ch resp failure; Metabolic encephalopathy Interval history: No change today. Objective - Exam Narrative Exam: Physical Exam: Constitutional: Non-responsive. Oral: dentition fair, no thrush Cardiovascular: S1, S2 normal. Respiratory: Good air entry, clear to auscultation bilaterally GI: Soft, non-tender; bowel sounds normal. No peritoneal signs. Musculoskeletal: No pedal edema, no cyanosis. Skin: No rash or abscess Hem/Lymphatic: No palpable cervical or supraclavicular nodes. No lymphangitis Psych: Mood ok. Affect normal Neurological: Intubated, non-responsive. - Constitutional Vitals: Vital Signs Temp Pulse Resp BP Pulse Ox 98.7 F 85 14 126/56 98 11/25/18 12:00 11/25/18 11:30 11/25/18 11:30 11/25/18 11:30 11/25/18 11:30 Temperature -Last 24 Hours Temperature 98.7 F Temperature 97.5 F Temperature 98 F Temperature 96.4 F Temperature 97.1 F - Labs CBC & Chem 7: 11/25/18 04:24 11/25/18 04:24 Labs: Abnormal lab results 11/24/18 11/24/18 11/24/18 Range/Units 17:53 20:50 21:11 RBC (3.65-5.03) M/mm3 Hgb (11.8-15.2) gm/dl Hct (35.5-45.6) % RDW (13.2-15.2) % ABG Hemoglobin 8.2 L (14.0-18.0) gm/dl Oxyhemoglobin 94.8 L (95.0-99.0) % Potassium (3.6-5.0) mmol/L Chloride (98-107) mmol/L Creatinine (0.8-1.5) mg/dL Glucose (75-100) mg/dL POC Glucose 170 H 190 H (70-105) Calcium (8.4-10.2) mg/dL Magnesium (1.7-2.3) mg/dL 11/24/18 11/25/18 11/25/18 Range/Units 23:46 04:24 04:24 RBC 2.78 L (3.65-5.03) M/mm3 Hgb 7.7 L (11.8-15.2) gm/dl Hct 23.7 L (35.5-45.6) % RDW 18.7 H (13.2-15.2) % ABG Hemoglobin (14.0-18.0) gm/dl Oxyhemoglobin (95.0-99.0) % Potassium 3.5 L (3.6-5.0) mmol/L Chloride 108.1 H (98-107) mmol/L Creatinine 0.4 L (0.8-1.5) mg/dL Glucose 119 H (75-100) mg/dL POC Glucose 169 H (70-105) Calcium 7.9 L (8.4-10.2) mg/dL Magnesium (1.7-2.3) mg/dL 11/25/18 11/25/18 Range/Units 04:24 05:14 RBC (3.65-5.03) M/mm3 Hgb (11.8-15.2) gm/dl Hct (35.5-45.6) % RDW (13.2-15.2) % ABG Hemoglobin (14.0-18.0) gm/dl Oxyhemoglobin (95.0-99.0) % Potassium (3.6-5.0) mmol/L Chloride (98-107) mmol/L Creatinine (0.8-1.5) mg/dL Glucose (75-100) mg/dL POC Glucose 138 H (70-105) Calcium (8.4-10.2) mg/dL Magnesium 1.50 L (1.7-2.3) mg/dL
[2018-11-25] MEDS: ROBINUL PO SCH ×2 (14:22→22:38)
[2018-11-25] MEDS: TRANSDERM-SCOP TD SCH (14:31)
[2018-11-25] MEDS: LANTUS SUB-Q SCH (22:38)
[2018-11-26] MEDS: HumaLOG SUB-Q SCH ×4 (00:17→19:21)
[2018-11-26] MEDS: ROBINUL PO SCH ×3 (06:09→23:49)
[2018-11-26] MEDS: REGLAN IV SCH ×3 (06:09→23:47)
[2018-11-26 06:21] LABS: Hematocrit 25.1 % (35.5-45.6); Hemoglobin 8.1 gm/dl (11.8-15.2); Mean Corpuscular HGB Conc 32 % (32-34); Mean Corpuscular Volume 86 fl (84-94); Platelet Count 127 K/mm3 (140-440); Red Blood Count 2.91 M/mm3 (3.65-5.03); Red Cell Distribution Width 19.4 % (13.2-15.2)
[2018-11-26 06:22] LABS: BUN/Creatinine Ratio 48; Blood Urea Nitrogen 19 mg/dL (9-20); Hemolysis Index 4
--- NOTE | 2018-11-26 09:36 | Progress Note ---
Assessment and Plan -Acute on chronic hypoxic respiratory failures/p trach to ATP -Severe sepsis with shock, off vasopressors -VRE bacteremia -UTI -Large sacral decubitus ulcer -Acute on chronic metabolic encephalopathy -Orophargyngeal dysphagia s/p PEG -h/o CVAs -Transaminitis probably secondary to hypotension -Type 2 DM -Hypokalemia -Trach care, airway clearance and secretion management -Accuchecks with glycemic control, continue with insulin infusion per protocol -Douglass catheter for accurate intake and output monitoring in this critically ill patient with history of chronic douglass/urinary retention/sacral decubitus ulcer -Avoid nephrotoxins -VTE prophylaxis -Stress ulcer prophylaxis -Antibiotics per ID, de-escalate as indicated (on Linezolid) -Daily SAT and SBT -Mobility and off loading for sacral decubitus -Wound care -Optimize nutrition to help promote wound healing -Supportive transfusions as indicated, to keep HgB>7g/dL -Vasopressor support as indicated for MAP<65, with blood pressure unresponsive to volume resuscitation -Continue to monitor hemodynamics closely CONDITION: POOR PROGNOSIS; POOR CODE STATUS: FULL Discussed care plan with RT and RN. Discussed during ICU-IDT rounds OK to downgrade to [facility] Discharge planning Subjective Date of service: 11/26/18 Principal diagnosis: Severe sepsis with shock; Ac and ch resp failure; Metabolic encephalopathy Interval history: Patient known to our service. Per family request, care is being transferred back to us Patient is seen today for: Severe sepsis with septic shock; Acute and chronic respiratory failure on MVS; Acute and chronic metabolic encephalopathy; Seen and examined at bedside; 24hour events reviewed; nursing and respiratory care staff consulted; resting peacefully in bed; tolerating ATP, remains remains off vasopressor support; Vitals, labs, medications, chart reviewed. AMS is persistent; tolerating tube feeds; afebrile; Objective Vital Signs - 12hr 11/25/18 11/25/18 11/25/18 22:01 22:31 22:43 Temperature Pulse Rate 83 89 88 Pulse Rate [ From Monitor] Respiratory 15 14 15 Rate Blood Pressure 154/63 140/62 140/62 O2 Sat by Pulse 96 88 91 Oximetry O2 Sat by Pulse Oximetry [ Assessment] 11/25/18 11/25/18 11/25/18 23:01 23:31 23:58 Temperature 98.9 F Pulse Rate 90 91 H Pulse Rate [ From Monitor] Respiratory 20 20 Rate Blood Pressure 141/63 149/66 O2 Sat by Pulse 84 91 Oximetry O2 Sat by Pulse Oximetry [ Assessment] 11/26/18 11/26/18 11/26/18 00:00 00:31 01:01 Temperature Pulse Rate 92 H 92 H 93 H Pulse Rate [ 91 H From Monitor] Respiratory 18 14 15 Rate Blood Pressure 144/70 131/63 158/64 O2 Sat by Pulse 89 90 92 Oximetry O2 Sat by Pulse Oximetry [ Assessment] 11/26/18 11/26/18 11/26/18 01:31 02:01 02:31 Temperature Pulse Rate 91 H 93 H 93 H Pulse Rate [ From Monitor] Respiratory 18 19 18 Rate Blood Pressure 152/63 143/63 142/73 O2 Sat by Pulse 90 91 86 Oximetry O2 Sat by Pulse Oximetry [ Assessment] 11/26/18 11/26/18 11/26/18 03:01 03:31 03:38 Temperature 98.7 F Pulse Rate 93 H 96 H Pulse Rate [ From Monitor] Respiratory 17 11 L Rate Blood Pressure 149/63 152/65 O2 Sat by Pulse 90 91 Oximetry O2 Sat by Pulse Oximetry [ Assessment] 11/26/18 11/26/18 11/26/18 04:00 04:01 04:31 Temperature Pulse Rate 95 H 95 H 97 H Pulse Rate [ 91 H From Monitor] Respiratory 15 18 20 Rate Blood Pressure 156/63 150/68 O2 Sat by Pulse 94 91 85 Oximetry O2 Sat by Pulse Oximetry [ Assessment] 11/26/18 11/26/18 11/26/18 04:58 05:00 05:01 Temperature 98.7 F Pulse Rate 95 H Pulse Rate [ From Monitor] Respiratory 20 Rate Blood Pressure 145/66 O2 Sat by Pulse 90 Oximetry O2 Sat by Pulse 92 Oximetry [ Assessment] 11/26/18 11/26/18 11/26/18 05:31 06:00 06:31 Temperature Pulse Rate 98 H 102 H 99 H Pulse Rate [ From Monitor] Respiratory 12 18 22 Rate Blood Pressure 142/66 147/72 148/72 O2 Sat by Pulse 89 88 85 Oximetry O2 Sat by Pulse Oximetry [ Assessment] 11/26/18 11/26/18 11/26/18 07:01 07:29 07:31 Temperature Pulse Rate 100 H 102 H Pulse Rate [ From Monitor] Respiratory 18 19 Rate Blood Pressure 156/69 157/73 O2 Sat by Pulse 88 99 88 Oximetry O2 Sat by Pulse Oximetry [ Assessment] 11/26/18 08:00 Temperature 99.8 F H Pulse Rate Pulse Rate [ From Monitor] Respiratory Rate Blood Pressure O2 Sat by Pulse Oximetry O2 Sat by Pulse Oximetry [ Assessment] Constitutional: no acute distress, other (elderly looking AAM , unresponsive; trach in place to ATP, moderate secretions) Eyes: non-icteric ENT: oropharynx moist Neck: supple, no lymphadenopathy, no JVD, other (midline trach) Effort: mildly labored Ascultation: Bilateral: diminished breath sounds, rales, rhonchi (scant in bases) Percussion: Bilateral: not dull Cardiovascular: regular rate and rhythm, other (S1,S2) Gastrointestinal: normoactive bowel sounds, soft, non-distended, other (PEG in place, chronic douglass catheter) Integumentary: decubitus ulcer (see wound care notes) Extremities: no cyanosis, pink and warm, pulses normal, edema (2+) Neurologic: unable to assess (on vent), other (encephalopathic, unresponsive) Psychiatric: other (unable to assess) CBC and BMP: 11/27/18 05:35 11/27/18 05:35 ABG, PT/INR, D-dimer: ABG POC ABG pH 7.414 (7.35-7.45) 11/23/18 05:26 ABG pH 7.367 pH Units (7.350-7.450) 11/24/18 20:50 POC ABG pCO2 35.8 (35-45) 11/23/18 05:26 ABG pCO2 45.8 mm Hg 11/24/18 20:50 POC ABG pO2 93 (80-105) 11/23/18 05:26 ABG pO2 89.9 mm Hg (80.0-90.0) 11/24/18 20:50 POC ABG HCO3 22.9 (22-26 mml/L) 11/23/18 05:26 POC ABG Total CO2 24 (23-27mmol/L) 11/23/18 05:26 POC ABG O2 Sat 97 11/23/18 05:26 ABG O2 Saturation 97.1 % (95.0-99.0) 11/24/18 20:50 Abnormal lab findings: Abnormal Labs 11/13/18 11/13/18 11/13/18 03:30 14:00 14:00 WBC 3.8 L RBC 2.80 L Hgb 7.4 L Hct 22.9 L MCV 82 L MCH 27 L MCHC RDW 19.0 H Plt Count Lymph % (Auto) Douglas % (Auto) Eos % (Auto) Douglas # Seg Neutrophils % Seg Neuts % (Manual) 87.0 H Lymphocytes % (Manual) 5.0 L Eosinophils % (Manual) 7.0 H Seg Neutrophils # Lymphocytes # (Manual) 0.2 L POC ABG pH POC ABG pO2 ABG pO2 ABG Base Excess ABG Hemoglobin Oxyhemoglobin Sodium 147 H Potassium Chloride Carbon Dioxide 33 H BUN 50 H Creatinine Glucose 193 H POC Glucose Lactic Acid 3.70 H* Calcium 8.1 L Magnesium AST 154 H ALT 134 H Alkaline Phosphatase 586 H Total Creatine Kinase CK-MB (CK-2) Troponin T NT-Pro-B Natriuret Pep Albumin 1.2 L Triglycerides LDL Cholesterol Direct HDL Cholesterol Urine WBC (Auto) Crossmatch 11/13/18 11/13/18 11/13/18 14:00 14:44 14:49 WBC RBC Hgb Hct MCV MCH MCHC RDW Plt Count Lymph % (Auto) Douglas % (Auto) Eos % (Auto) Douglas # Seg Neutrophils % Seg Neuts % (Manual) Lymphocytes % (Manual) Eosinophils % (Manual) Seg Neutrophils # Lymphocytes # (Manual) POC ABG pH POC ABG pO2 ABG pO2 ABG Base Excess ABG Hemoglobin Oxyhemoglobin Sodium Potassium Chloride Carbon Dioxide BUN Creatinine Glucose POC Glucose Lactic Acid 2.60 H* Calcium Magnesium AST ALT Alkaline Phosphatase Total Creatine Kinase 510 H CK-MB (CK-2) 4.4 H Troponin T 0.348 H* NT-Pro-B Natriuret Pep 3679 H Albumin Triglycerides 284 H LDL Cholesterol Direct 4 L HDL Cholesterol 7 L Urine WBC (Auto) 36.0 H Crossmatch 11/13/18 11/13/18 11/13/18 14:49 14:49 14:52 WBC RBC Hgb Hct MCV MCH MCHC RDW Plt Count Lymph % (Auto) Douglas % (Auto) Eos % (Auto) Douglas # Seg Neutrophils % Seg Neuts % (Manual) Lymphocytes % (Manual) Eosinophils % (Manual) Seg Neutrophils # Lymphocytes # (Manual) POC ABG pH POC ABG pO2 ABG pO2 ABG Base Excess ABG Hemoglobin Oxyhemoglobin Sodium Potassium Chloride Carbon Dioxide BUN Creatinine Glucose POC Glucose 205 H Lactic Acid 3.90 H* Calcium Magnesium AST ALT Alkaline Phosphatase Total Creatine Kinase CK-MB (CK-2) Troponin T NT-Pro-B Natriuret Pep Albumin Triglycerides LDL Cholesterol Direct HDL Cholesterol Urine WBC (Auto) Crossmatch See Detail 11/13/18 11/13/18 11/13/18 16:58 17:13 19:46 WBC RBC Hgb Hct MCV MCH MCHC RDW Plt Count Lymph % (Auto) Douglas % (Auto) Eos % (Auto) Douglas # Seg Neutrophils % Seg Neuts % (Manual) Lymphocytes % (Manual) Eosinophils % (Manual) Seg Neutrophils # Lymphocytes # (Manual) POC ABG pH 7.573 H POC ABG pO2 ABG pO2 ABG Base Excess ABG Hemoglobin Oxyhemoglobin Sodium Potassium Chloride Carbon Dioxide BUN Creatinine Glucose POC Glucose Lactic Acid 3.90 H* 4.40 H* Calcium Magnesium AST ALT Alkaline Phosphatase Total Creatine Kinase CK-MB (CK-2) Troponin T NT-Pro-B Natriuret Pep Albumin Triglycerides LDL Cholesterol Direct HDL Cholesterol Urine WBC (Auto) Crossmatch 11/13/18 11/14/18 11/14/18 21:34 04:50 05:23 WBC RBC Hgb Hct MCV MCH MCHC RDW Plt Count Lymph % (Auto) Douglas % (Auto) Eos % (Auto) Douglas # Seg Neutrophils % Seg Neuts % (Manual) Lymphocytes % (Manual) Eosinophils % (Manual) Seg Neutrophils # Lymphocytes # (Manual) POC ABG pH POC ABG pO2 ABG pO2 120.8 H ABG Base Excess ABG Hemoglobin 10.9 L Oxyhemoglobin Sodium Potassium Chloride Carbon Dioxide BUN Creatinine Glucose POC Glucose 263 H Lactic Acid 4.50 H* Calcium Magnesium AST ALT Alkaline Phosphatase Total Creatine Kinase CK-MB (CK-2) Troponin T NT-Pro-B Natriuret Pep Albumin Triglycerides LDL Cholesterol Direct HDL Cholesterol Urine WBC (Auto) Crossmatch 11/14/18 11/14/18 11/14/18 05:46 08:02 12:42 WBC RBC Hgb Hct MCV MCH MCHC RDW Plt Count Lymph % (Auto) Douglas % (Auto) Eos % (Auto) Douglas # Seg Neutrophils % Seg Neuts % (Manual) Lymphocytes % (Manual) Eosinophils % (Manual) Seg Neutrophils # Lymphocytes # (Manual) POC ABG pH 7.463 H POC ABG pO2 136 H ABG pO2 ABG Base Excess ABG Hemoglobin Oxyhemoglobin Sodium Potassium Chloride Carbon Dioxide BUN Creatinine Glucose POC Glucose 213 H Lactic Acid 2.70 H* Calcium Magnesium AST ALT Alkaline Phosphatase Total Creatine Kinase CK-MB (CK-2) Troponin T NT-Pro-B Natriuret Pep Albumin Triglycerides LDL Cholesterol Direct HDL Cholesterol Urine WBC (Auto) Crossmatch 11/14/18 11/14/18 11/14/18 14:17 14:17 15:50 WBC 13.1 H 13.1 H RBC 2.36 L 2.36 L Hgb 6.1 L 6.1 L Hct 19.6 L* 19.4 L* MCV 83 L 82 L MCH 26 L 26 L MCHC 31 L 31 L RDW 19.4 H 19.3 H Plt Count Lymph % (Auto) Douglas % (Auto) Eos % (Auto) Douglas # Seg Neutrophils % Seg Neuts % (Manual) Lymphocytes % (Manual) Eosinophils % (Manual) Seg Neutrophils # Lymphocytes # (Manual) POC ABG pH POC ABG pO2 ABG pO2 ABG Base Excess ABG Hemoglobin Oxyhemoglobin Sodium 148 H Potassium Chloride 110.3 H Carbon Dioxide BUN 56 H Creatinine Glucose 203 H POC Glucose Lactic Acid Calcium 7.6 L Magnesium AST ALT Alkaline Phosphatase Total Creatine Kinase CK-MB (CK-2) Troponin T NT-Pro-B Natriuret Pep Albumin Triglycerides LDL Cholesterol Direct HDL Cholesterol Urine WBC (Auto) Crossmatch 11/14/18 11/14/18 11/15/18 18:19 23:52 05:10 WBC 16.2 H RBC 3.22 L Hgb 8.8 L Hct 26.8 L D MCV 83 L MCH 27 L MCHC RDW 16.8 H Plt Count Lymph % (Auto) Douglas % (Auto) Eos % (Auto) Douglas # Seg Neutrophils % Seg Neuts % (Manual) Lymphocytes % (Manual) Eosinophils % (Manual) Seg Neutrophils # Lymphocytes # (Manual) POC ABG pH POC ABG pO2 ABG pO2 ABG Base Excess ABG Hemoglobin Oxyhemoglobin Sodium Potassium Chloride Carbon Dioxide BUN Creatinine Glucose POC Glucose 213 H 242 H Lactic Acid Calcium Magnesium AST ALT Alkaline Phosphatase Total Creatine Kinase CK-MB (CK-2) Troponin T NT-Pro-B Natriuret Pep Albumin Triglycerides LDL Cholesterol Direct HDL Cholesterol Urine WBC (Auto) Crossmatch 11/15/18 11/15/18 11/15/18 05:10 05:36 11:15 WBC RBC Hgb Hct MCV MCH MCHC RDW Plt Count Lymph % (Auto) Douglas % (Auto) Eos % (Auto) Douglas # Seg Neutrophils % Seg Neuts % (Manual) Lymphocytes % (Manual) Eosinophils % (Manual) Seg Neutrophils # Lymphocytes # (Manual) POC ABG pH POC ABG pO2 ABG pO2 ABG Base Excess ABG Hemoglobin Oxyhemoglobin Sodium 148 H Potassium 3.5 L Chloride 112.8 H Carbon Dioxide BUN 51 H Creatinine Glucose 154 H POC Glucose 143 H 139 H Lactic Acid Calcium 7.8 L Magnesium AST ALT Alkaline Phosphatase Total Creatine Kinase CK-MB (CK-2) Troponin T NT-Pro-B Natriuret Pep Albumin Triglycerides LDL Cholesterol Direct HDL Cholesterol Urine WBC (Auto) Crossmatch 11/15/18 11/15/18 11/15/18 12:00 18:28 20:56 WBC RBC Hgb Hct MCV MCH MCHC RDW Plt Count Lymph % (Auto) Douglas % (Auto) Eos % (Auto) Douglas # Seg Neutrophils % Seg Neuts % (Manual) Lymphocytes % (Manual) Eosinophils % (Manual) Seg Neutrophils # Lymphocytes # (Manual) POC ABG pH POC ABG pO2 ABG pO2 ABG Base Excess ABG Hemoglobin Oxyhemoglobin Sodium 148 H Potassium 3.2 L Chloride 113.0 H Carbon Dioxide BUN 44 H Creatinine Glucose 144 H POC Glucose 159 H 150 H Lactic Acid Calcium 7.7 L Magnesium AST ALT Alkaline Phosphatase Total Creatine Kinase CK-MB (CK-2) Troponin T NT-Pro-B Natriuret Pep Albumin Triglycerides LDL Cholesterol Direct HDL Cholesterol Urine WBC (Auto) Crossmatch 11/15/18 11/16/18 11/16/18 23:32 03:40 03:45 WBC 16.1 H RBC 3.30 L Hgb 8.9 L Hct 27.9 L MCV MCH 27 L MCHC RDW 17.5 H Plt Count Lymph % (Auto) Douglas % (Auto) Eos % (Auto) Douglas # Seg Neutrophils % Seg Neuts % (Manual) Lymphocytes % (Manual) Eosinophils % (Manual) Seg Neutrophils # Lymphocytes # (Manual) POC ABG pH POC ABG pO2 ABG pO2 147.0 H ABG Base Excess ABG Hemoglobin 12.0 L Oxyhemoglobin Sodium Potassium Chloride Carbon Dioxide BUN Creatinine Glucose POC Glucose 131 H Lactic Acid Calcium Magnesium AST ALT Alkaline Phosphatase Total Creatine Kinase CK-MB (CK-2) Troponin T NT-Pro-B Natriuret Pep Albumin Triglycerides LDL Cholesterol Direct HDL Cholesterol Urine WBC (Auto) Crossmatch 11/16/18 11/16/18 11/16/18 03:45 05:15 15:14 WBC RBC Hgb Hct MCV MCH MCHC RDW Plt Count Lymph % (Auto) Douglas % (Auto) Eos % (Auto) Douglas # Seg Neutrophils % Seg Neuts % (Manual) Lymphocytes % (Manual) Eosinophils % (Manual) Seg Neutrophils # Lymphocytes # (Manual) POC ABG pH POC ABG pO2 ABG pO2 ABG Base Excess ABG Hemoglobin Oxyhemoglobin Sodium 149 H Potassium 3.5 L Chloride 116.2 H Carbon Dioxide 21 L BUN 41 H Creatinine Glucose 146 H POC Glucose 155 H 215 H Lactic Acid Calcium 7.7 L Magnesium AST ALT Alkaline Phosphatase Total Creatine Kinase CK-MB (CK-2) Troponin T NT-Pro-B Natriuret Pep Albumin Triglycerides LDL Cholesterol Direct HDL Cholesterol Urine WBC (Auto) Crossmatch 11/16/18 11/16/18 11/17/18 18:20 23:49 04:49 WBC 12.1 H RBC 3.34 L Hgb 9.0 L Hct 28.1 L MCV MCH 27 L MCHC RDW 17.5 H Plt Count Lymph % (Auto) Douglas % (Auto) Eos % (Auto) Douglas # Seg Neutrophils % Seg Neuts % (Manual) Lymphocytes % (Manual) Eosinophils % (Manual) Seg Neutrophils # Lymphocytes # (Manual) POC ABG pH POC ABG pO2 ABG pO2 ABG Base Excess ABG Hemoglobin Oxyhemoglobin Sodium Potassium Chloride Carbon Dioxide BUN Creatinine Glucose POC Glucose 230 H 189 H Lactic Acid Calcium Magnesium AST ALT Alkaline Phosphatase Total Creatine Kinase CK-MB (CK-2) Troponin T NT-Pro-B Natriuret Pep Albumin Triglycerides LDL Cholesterol Direct HDL Cholesterol Urine WBC (Auto) Crossmatch 11/17/18 11/17/18 11/17/18 04:49 05:45 14:16 WBC RBC Hgb Hct MCV MCH MCHC RDW Plt Count Lymph % (Auto) Douglas % (Auto) Eos % (Auto) Douglas # Seg Neutrophils % Seg Neuts % (Manual) Lymphocytes % (Manual) Eosinophils % (Manual) Seg Neutrophils # Lymphocytes # (Manual) POC ABG pH POC ABG pO2 ABG pO2 ABG Base Excess ABG Hemoglobin Oxyhemoglobin Sodium 150 H Potassium 3.2 L Chloride 118.9 H Carbon Dioxide 20 L BUN 38 H Creatinine 0.7 L Glucose 164 H POC Glucose 181 H 172 H Lactic Acid Calcium 7.7 L Magnesium AST ALT Alkaline Phosphatase Total Creatine Kinase CK-MB (CK-2) Troponin T NT-Pro-B Natriuret Pep Albumin Triglycerides LDL Cholesterol Direct HDL Cholesterol Urine WBC (Auto) Crossmatch 11/17/18 11/17/18 11/18/18 23:36 Unknown 04:10 WBC RBC Hgb Hct MCV MCH MCHC RDW Plt Count Lymph % (Auto) Douglas % (Auto) Eos % (Auto) Douglas # Seg Neutrophils % Seg Neuts % (Manual) Lymphocytes % (Manual) Eosinophils % (Manual) Seg Neutrophils # Lymphocytes # (Manual) POC ABG pH POC ABG pO2 ABG pO2 105.9 H 101.8 H ABG Base Excess -2.3 L -3.2 L ABG Hemoglobin 11.5 L 10.2 L Oxyhemoglobin Sodium Potassium Chloride Carbon Dioxide BUN Creatinine Glucose POC Glucose 214 H Lactic Acid Calcium Magnesium AST ALT Alkaline Phosphatase Total Creatine Kinase CK-MB (CK-2) Troponin T NT-Pro-B Natriuret Pep Albumin Triglycerides LDL Cholesterol Direct HDL Cholesterol Urine WBC (Auto) Crossmatch 11/18/18 11/18/18 11/18/18 04:37 04:37 05:36 WBC RBC 3.10 L Hgb 8.5 L Hct 26.8 L MCV MCH 27 L MCHC RDW 17.8 H Plt Count Lymph % (Auto) 12.8 L Douglas % (Auto) 8.5 H Eos % (Auto) Douglas # 0.9 H Seg Neutrophils % 75.8 H Seg Neuts % (Manual) Lymphocytes % (Manual) Eosinophils % (Manual) Seg Neutrophils # 8.0 H Lymphocytes # (Manual) POC ABG pH POC ABG pO2 ABG pO2 ABG Base Excess ABG Hemoglobin Oxyhemoglobin Sodium 148 H Potassium 3.3 L Chloride 118.3 H Carbon Dioxide 20 L BUN 32 H Creatinine 0.7 L Glucose 154 H POC Glucose 171 H Lactic Acid Calcium 7.4 L Magnesium AST ALT Alkaline Phosphatase Total Creatine Kinase CK-MB (CK-2) Troponin T NT-Pro-B Natriuret Pep Albumin Triglycerides LDL Cholesterol Direct HDL Cholesterol Urine WBC (Auto) Crossmatch 11/18/18 11/18/18 11/18/18 12:10 17:27 23:56 WBC RBC Hgb Hct MCV MCH MCHC RDW Plt Count Lymph % (Auto) Douglas % (Auto) Eos % (Auto) Douglas # Seg Neutrophils % Seg Neuts % (Manual) Lymphocytes % (Manual) Eosinophils % (Manual) Seg Neutrophils # Lymphocytes # (Manual) POC ABG pH POC ABG pO2 ABG pO2 ABG Base Excess ABG Hemoglobin Oxyhemoglobin Sodium Potassium Chloride Carbon Dioxide BUN Creatinine Glucose POC Glucose 244 H 239 H 241 H Lactic Acid Calcium Magnesium AST ALT Alkaline Phosphatase Total Creatine Kinase CK-MB (CK-2) Troponin T NT-Pro-B Natriuret Pep Albumin Triglycerides LDL Cholesterol Direct HDL Cholesterol Urine WBC (Auto) Crossmatch 11/19/18 11/19/18 11/19/18 03:45 04:27 06:37 WBC RBC Hgb Hct MCV MCH MCHC RDW Plt Count Lymph % (Auto) Douglas % (Auto) Eos % (Auto) Douglas # Seg Neutrophils % Seg Neuts % (Manual) Lymphocytes % (Manual) Eosinophils % (Manual) Seg Neutrophils # Lymphocytes # (Manual) POC ABG pH POC ABG pO2 ABG pO2 95.5 H ABG Base Excess -4.0 L ABG Hemoglobin 5.9 L Oxyhemoglobin Sodium 147 H Potassium Chloride 119.2 H Carbon Dioxide 20 L BUN 28 H Creatinine 0.6 L Glucose 181 H POC Glucose 220 H Lactic Acid Calcium 7.6 L Magnesium AST ALT Alkaline Phosphatase Total Creatine Kinase CK-MB (CK-2) Troponin T NT-Pro-B Natriuret Pep Albumin Triglycerides LDL Cholesterol Direct HDL Cholesterol Urine WBC (Auto) Crossmatch 11/19/18 11/19/18 11/19/18 06:41 11:27 17:31 WBC RBC 3.28 L Hgb 9.0 L Hct 28.2 L MCV MCH MCHC RDW 17.9 H Plt Count Lymph % (Auto) Douglas % (Auto) 11.0 H Eos % (Auto) Douglas # 1.1 H Seg Neutrophils % Seg Neuts % (Manual) Lymphocytes % (Manual) Eosinophils % (Manual) Seg Neutrophils # Lymphocytes # (Manual) POC ABG pH POC ABG pO2 ABG pO2 ABG Base Excess ABG Hemoglobin Oxyhemoglobin Sodium Potassium Chloride Carbon Dioxide BUN Creatinine Glucose POC Glucose 280 H 300 H Lactic Acid Calcium Magnesium AST ALT Alkaline Phosphatase Total Creatine Kinase CK-MB (CK-2) Troponin T NT-Pro-B Natriuret Pep Albumin Triglycerides LDL Cholesterol Direct HDL Cholesterol Urine WBC (Auto) Crossmatch 11/19/18 11/20/18 11/20/18 23:30 03:03 03:03 WBC RBC 3.04 L Hgb 8.4 L Hct 26.1 L MCV MCH MCHC RDW 18.1 H Plt Count Lymph % (Auto) Douglas % (Auto) 11.0 H Eos % (Auto) Douglas # 0.9 H Seg Neutrophils % Seg Neuts % (Manual) Lymphocytes % (Manual) Eosinophils % (Manual) Seg Neutrophils # Lymphocytes # (Manual) POC ABG pH POC ABG pO2 ABG pO2 ABG Base Excess ABG Hemoglobin Oxyhemoglobin Sodium 148 H Potassium Chloride 117.4 H Carbon Dioxide BUN 24 H Creatinine 0.6 L Glucose 238 H POC Glucose 251 H Lactic Acid Calcium 7.9 L Magnesium AST ALT Alkaline Phosphatase Total Creatine Kinase CK-MB (CK-2) Troponin T NT-Pro-B Natriuret Pep Albumin Triglycerides LDL Cholesterol Direct HDL Cholesterol Urine WBC (Auto) Crossmatch 11/20/18 11/20/18 11/20/18 04:20 05:15 12:21 WBC RBC Hgb Hct MCV MCH MCHC RDW Plt Count Lymph % (Auto) Douglas % (Auto) Eos % (Auto) [place] # Seg Neutrophils % Seg Neuts % (Manual) Lymphocytes % (Manual) Eosinophils % (Manual) Seg Neutrophils # Lymphocytes # (Manual) POC ABG pH POC ABG pO2 ABG pO2 91.3 H ABG Base Excess -2.6 L ABG Hemoglobin 8.3 L Oxyhemoglobin Sodium Potassium Chloride Carbon Dioxide BUN Creatinine Glucose POC Glucose 213 H 318 H Lactic Acid Calcium Magnesium AST ALT Alkaline Phosphatase Total Creatine Kinase CK-MB (CK-2) Troponin T NT-Pro-B Natriuret Pep Albumin Triglycerides LDL Cholesterol Direct HDL Cholesterol Urine WBC (Auto) Crossmatch 11/20/18 11/20/18 11/20/18 18:01 20:50 23:36 WBC RBC Hgb Hct MCV MCH MCHC RDW Plt Count Lymph % (Auto) [place] % (Auto) Eos % (Auto) [place] # Seg Neutrophils % Seg Neuts % (Manual) Lymphocytes % (Manual) Eosinophils % (Manual) Seg Neutrophils # Lymphocytes # (Manual) POC ABG pH POC ABG pO2 ABG pO2 90.8 H ABG Base Excess -2.1 L ABG Hemoglobin 13.4 L Oxyhemoglobin 94.9 L Sodium Potassium Chloride Carbon Dioxide BUN Creatinine Glucose POC Glucose 301 H 290 H Lactic Acid Calcium Magnesium AST ALT Alkaline Phosphatase Total Creatine Kinase CK-MB (CK-2) Troponin T NT-Pro-B Natriuret Pep Albumin Triglycerides LDL Cholesterol Direct HDL Cholesterol Urine WBC (Auto) Crossmatch 11/21/18 11/21/18 11/21/18 03:09 03:09 05:10 WBC RBC 3.05 L Hgb 8.5 L Hct 26.1 L MCV MCH MCHC RDW 18.7 H Plt Count Lymph % (Auto) [place] % (Auto) 12.2 H Eos % (Auto) Douglas # 0.9 H Seg Neutrophils % Seg Neuts % (Manual) Lymphocytes % (Manual) Eosinophils % (Manual) Seg Neutrophils # Lymphocytes # (Manual) POC ABG pH POC ABG pO2 ABG pO2 ABG Base Excess ABG Hemoglobin Oxyhemoglobin Sodium 150 H Potassium 3.5 L Chloride 118.5 H Carbon Dioxide BUN 22 H Creatinine 0.6 L Glucose 279 H POC Glucose 307 H Lactic Acid Calcium 7.7 L Magnesium AST ALT Alkaline Phosphatase Total Creatine Kinase CK-MB (CK-2) Troponin T NT-Pro-B Natriuret Pep Albumin Triglycerides LDL Cholesterol Direct HDL Cholesterol Urine WBC (Auto) Crossmatch 11/21/18 11/21/18 11/21/18 11:24 17:23 23:20 WBC RBC Hgb Hct MCV MCH MCHC RDW Plt Count Lymph % (Auto) [place] % (Auto) Eos % (Auto) [place] # Seg Neutrophils % Seg Neuts % (Manual) Lymphocytes % (Manual) Eosinophils % (Manual) Seg Neutrophils # Lymphocytes # (Manual) POC ABG pH POC ABG pO2 ABG pO2 ABG Base Excess ABG Hemoglobin Oxyhemoglobin Sodium Potassium Chloride Carbon Dioxide BUN Creatinine Glucose POC Glucose 324 H 288 H 254 H Lactic Acid Calcium Magnesium AST ALT Alkaline Phosphatase Total Creatine Kinase CK-MB (CK-2) Troponin T NT-Pro-B Natriuret Pep Albumin Triglycerides LDL Cholesterol Direct HDL Cholesterol Urine WBC (Auto) Crossmatch 11/22/18 11/22/1811/22/19 03:50 05:43 06:10 WBC RBC 2.93 L Hgb 8.1 L Hct 25.2 L MCV MCH MCHC RDW 18.6 H Plt Count Lymph % (Auto) [place] % (Auto) 10.9 H Eos % (Auto) 4.4 H Douglas # 0.9 H Seg Neutrophils % Seg Neuts % (Manual) Lymphocytes % (Manual) Eosinophils % (Manual) Seg Neutrophils # Lymphocytes # (Manual) POC ABG pH POC ABG pO2 ABG pO2 94.6 H ABG Base Excess ABG Hemoglobin 6.5 L Oxyhemoglobin Sodium Potassium Chloride Carbon Dioxide BUN Creatinine Glucose POC Glucose 227 H Lactic Acid Calcium Magnesium AST ALT Alkaline Phosphatase Total Creatine Kinase CK-MB (CK-2) Troponin T NT-Pro-B Natriuret Pep Albumin Triglycerides LDL Cholesterol Direct HDL Cholesterol Urine WBC (Auto) Crossmatch 11/22/18 11/22/18 11/22/18 06:10 11:35 17:07 WBC RBC Hgb Hct MCV MCH MCHC RDW Plt Count Lymph % (Auto) [place] % (Auto) Eos % (Auto) [place] # Seg Neutrophils % Seg Neuts % (Manual) Lymphocytes % (Manual) Eosinophils % (Manual) Seg Neutrophils # Lymphocytes # (Manual) POC ABG pH POC ABG pO2 ABG pO2 ABG Base Excess ABG Hemoglobin Oxyhemoglobin Sodium 146 H Potassium 3.3 L Chloride 114.8 H Carbon Dioxide BUN 21 H Creatinine 0.5 L Glucose 214 H POC Glucose 262 H 205 H Lactic Acid Calcium 7.7 L Magnesium AST ALT Alkaline Phosphatase Total Creatine Kinase CK-MB (CK-2) Troponin T NT-Pro-B Natriuret Pep Albumin Triglycerides LDL Cholesterol Direct HDL Cholesterol Urine WBC (Auto) Crossmatch 11/22/18 11/23/18 11/23/18 23:23 05:35 06:48 WBC RBC 2.90 L Hgb 8.0 L Hct 25.1 L MCV MCH MCHC RDW 18.7 H Plt Count Lymph % (Auto) Douglas % (Auto) 8.7 H Eos % (Auto) 4.5 H Douglas # Seg Neutrophils % Seg Neuts % (Manual) Lymphocytes % (Manual) Eosinophils % (Manual) Seg Neutrophils # Lymphocytes # (Manual) POC ABG pH POC ABG pO2 ABG pO2 ABG Base Excess ABG Hemoglobin Oxyhemoglobin Sodium Potassium Chloride Carbon Dioxide BUN Creatinine Glucose POC Glucose 165 H 140 H Lactic Acid Calcium Magnesium AST ALT Alkaline Phosphatase Total Creatine Kinase CK-MB (CK-2) Troponin T NT-Pro-B Natriuret Pep Albumin Triglycerides LDL Cholesterol Direct HDL Cholesterol Urine WBC (Auto) Crossmatch 11/23/18 11/23/18 11/23/18 06:48 12:00 17:16 WBC RBC Hgb Hct MCV MCH MCHC RDW Plt Count Lymph % (Auto) Douglas % (Auto) Eos % (Auto) Douglas # Seg Neutrophils % Seg Neuts % (Manual) Lymphocytes % (Manual) Eosinophils % (Manual) Seg Neutrophils # Lymphocytes # (Manual) POC ABG pH POC ABG pO2 ABG pO2 ABG Base Excess ABG Hemoglobin Oxyhemoglobin Sodium 146 H Potassium Chloride 115.4 H Carbon Dioxide BUN Creatinine 0.4 L Glucose 144 H POC Glucose 199 H 207 H Lactic Acid Calcium 7.8 L Magnesium AST ALT Alkaline Phosphatase Total Creatine Kinase CK-MB (CK-2) Troponin T NT-Pro-B Natriuret Pep Albumin Triglycerides LDL Cholesterol Direct HDL Cholesterol Urine WBC (Auto) Crossmatch 11/23/18 11/23/18 11/24/18 22:23 23:57 05:38 WBC RBC Hgb Hct MCV MCH MCHC RDW Plt Count Lymph % (Auto) Douglas % (Auto) Eos % (Auto) Douglas # Seg Neutrophils % Seg Neuts % (Manual) Lymphocytes % (Manual) Eosinophils % (Manual) Seg Neutrophils # Lymphocytes # (Manual) POC ABG pH POC ABG pO2 ABG pO2 ABG Base Excess ABG Hemoglobin Oxyhemoglobin Sodium Potassium Chloride Carbon Dioxide BUN Creatinine Glucose POC Glucose 186 H 172 H 137 H Lactic Acid Calcium Magnesium AST ALT Alkaline Phosphatase Total Creatine Kinase CK-MB (CK-2) Troponin T NT-Pro-B Natriuret Pep Albumin Triglycerides LDL Cholesterol Direct HDL Cholesterol Urine WBC (Auto) Crossmatch 11/24/18 11/24/18 11/24/18 12:23 17:53 20:50 WBC RBC Hgb Hct MCV MCH MCHC RDW Plt Count Lymph % (Auto) Douglas % (Auto) Eos % (Auto) Douglas # Seg Neutrophils % Seg Neuts % (Manual) Lymphocytes % (Manual) Eosinophils % (Manual) Seg Neutrophils # Lymphocytes # (Manual) POC ABG pH POC ABG pO2 ABG pO2 ABG Base Excess ABG Hemoglobin 8.2 L Oxyhemoglobin 94.8 L Sodium Potassium Chloride Carbon Dioxide BUN Creatinine Glucose POC Glucose 168 H 170 H Lactic Acid Calcium Magnesium AST ALT Alkaline Phosphatase Total Creatine Kinase CK-MB (CK-2) Troponin T NT-Pro-B Natriuret Pep Albumin Triglycerides LDL Cholesterol Direct HDL Cholesterol Urine WBC (Auto) Crossmatch 11/24/18 11/24/18 11/25/18 21:11 23:46 04:24 WBC RBC 2.78 L Hgb 7.7 L Hct 23.7 L MCV MCH MCHC RDW 18.7 H Plt Count Lymph % (Auto) Douglas % (Auto) Eos % (Auto) Douglas # Seg Neutrophils % Seg Neuts % (Manual) Lymphocytes % (Manual) Eosinophils % (Manual) Seg Neutrophils # Lymphocytes # (Manual) POC ABG pH POC ABG pO2 ABG pO2 ABG Base Excess ABG Hemoglobin Oxyhemoglobin Sodium Potassium Chloride Carbon Dioxide BUN Creatinine Glucose POC Glucose 190 H 169 H Lactic Acid Calcium Magnesium AST ALT Alkaline Phosphatase Total Creatine Kinase CK-MB (CK-2) Troponin T NT-Pro-B Natriuret Pep Albumin Triglycerides LDL Cholesterol Direct HDL Cholesterol Urine WBC (Auto) Crossmatch 11/25/18 11/25/18 11/25/18 04:24 04:24 05:14 WBC RBC Hgb Hct MCV MCH MCHC RDW Plt Count Lymph % (Auto) Douglas % (Auto) Eos % (Auto) Douglas # Seg Neutrophils % Seg Neuts % (Manual) Lymphocytes % (Manual) Eosinophils % (Manual) Seg Neutrophils # Lymphocytes # (Manual) POC ABG pH POC ABG pO2 ABG pO2 ABG Base Excess ABG Hemoglobin Oxyhemoglobin Sodium Potassium 3.5 L Chloride 108.1 H Carbon Dioxide BUN Creatinine 0.4 L Glucose 119 H POC Glucose 138 H Lactic Acid Calcium 7.9 L Magnesium 1.50 L AST ALT Alkaline Phosphatase Total Creatine Kinase CK-MB (CK-2) Troponin T NT-Pro-B Natriuret Pep Albumin Triglycerides LDL Cholesterol Direct HDL Cholesterol Urine WBC (Auto) Crossmatch 11/25/18 11/25/18 11/25/18 11:46 17:45 23:39 WBC RBC Hgb Hct MCV MCH MCHC RDW Plt Count Lymph % (Auto) Douglas % (Auto) Eos % (Auto) Douglas # Seg Neutrophils % Seg Neuts % (Manual) Lymphocytes % (Manual) Eosinophils % (Manual) Seg Neutrophils # Lymphocytes # (Manual) POC ABG pH POC ABG pO2 ABG pO2 ABG Base Excess ABG Hemoglobin Oxyhemoglobin Sodium Potassium Chloride Carbon Dioxide BUN Creatinine Glucose POC Glucose 160 H 107 H 118 H Lactic Acid Calcium Magnesium AST ALT Alkaline Phosphatase Total Creatine Kinase CK-MB (CK-2) Troponin T NT-Pro-B Natriuret Pep Albumin Triglycerides LDL Cholesterol Direct HDL Cholesterol Urine WBC (Auto) Crossmatch 11/26/18 11/26/18 11/26/18 05:43 05:50 05:50 WBC RBC 2.91 L Hgb 8.1 L Hct 25.1 L MCV MCH MCHC RDW 19.4 H Plt Count 127 L Lymph % (Auto) Douglas % (Auto) Eos % (Auto) Douglas # Seg Neutrophils % Seg Neuts % (Manual) Lymphocytes % (Manual) Eosinophils % (Manual) Seg Neutrophils # Lymphocytes # (Manual) POC ABG pH POC ABG pO2 ABG pO2 ABG Base Excess ABG Hemoglobin Oxyhemoglobin Sodium Potassium Chloride 109.7 H Carbon Dioxide BUN Creatinine 0.4 L Glucose 118 H POC Glucose 142 H Lactic Acid Calcium 8.0 L Magnesium AST ALT Alkaline Phosphatase Total Creatine Kinase CK-MB (CK-2) Troponin T NT-Pro-B Natriuret Pep Albumin Triglycerides LDL Cholesterol Direct HDL Cholesterol Urine WBC (Auto) Crossmatch Allied health notes reviewed: nursing
[2018-11-26] MEDS: DAKIN'S HALF STRENGTH TP SCH ×2 (10:00→22:07)
--- NOTE | 2018-11-26 10:09 | Progress Note ---
Assessment and Plan Assessment and plan: Acute on chronic resp failure Cont. tracheostomy care, secretion control and airway mangement Pulmonology following Severe Sepsis with septic shock due to VRE off vasopressors Blood cultures Enterococcus Faecium 4 of 4 bottles ID Physician following Continue antibiotics per ID recommendations, Zyvox 600 mg twice a day for total of 14 day Sacral decub ulcer. Appreciate general surgery recommendations. considering surgery Diabetes mellitus type 2 Fingerstick q4h Anemia s/p 2 Units PRBC stool occult blood neg Hypertension by history. Monitor History of chronic hypoxic encephalopathy Hyperlipidemia Hypernatremia Hypokalemia Replaced Hypomagnesemia Gave Mg rider Full code status Poor prognosis. I had a long discussion with the who wants to continue full supportive and aggressive care. Surgery also had a discussion with the with regards to debridement of his wound. Today, 11/24/18, tells me she has not decided on surgery yet. The high probability of a clinically significant, sudden or life threatening deterioration of the respiratory and immunologic system(s) required my full and direct attention, intervention and personal management. The aggregate critical care time was [32] minutes. This time is in addition to time spent performing reported procedures but includes the following: [x] Data Review and interpretation [x] Patient assessment and monitoring of vital signs [x] Documentation [x] Medication orders and management History Interval history: Still only minimally responsive still considering debridement surgery sacral ulcer Hospitalist Physical - Physical exam Narrative exam: Gen: Not in acute distress, lying in bed, ill looking HEENT: Normocephalic, atraumatic, tracheostomy to t-piece Neck: supple, no JVD,trach Heart: S1 and S2 reg, no murmurs, rubs or gallop Lungs: Clear, no crackles, no rhonchi Abd: soft, non tender, non distended, normal BS, PEG tube Ext: No edema, no clubbing, no cyanosis Neuro: Minimal responsive, Does not follow commands Sacral:sacral decub ulcer - Constitutional Vitals: Temp Pulse Resp BP Pulse Ox 99.8 F H 102 H 19 157/73 88 11/26/18 08:00 11/26/18 07:31 11/26/18 07:31 11/26/18 07:31 11/26/18 07:31 General appearance: Present: no acute distress, obese, other Results - Labs CBC & Chem 7: 11/26/18 05:50 11/26/18 05:50 Labs: Laboratory Last Values WBC 8.0 K/mm3 (4.5-11.0) 11/26/18 05:50 RBC 2.91 M/mm3 (3.65-5.03) L 11/26/18 05:50 Hgb 8.1 gm/dl (11.8-15.2) L 11/26/18 05:50 Hct 25.1 % (35.5-45.6) L 11/26/18 05:50 MCV 86 fl (84-94) 11/26/18 05:50 MCH 28 pg (28-32) 11/26/18 05:50 MCHC 32 % (32-34) 11/26/18 05:50 RDW 19.4 % (13.2-15.2) H 11/26/18 05:50 Plt Count 127 K/mm3 (140-440) L 11/26/18 05:50 Lymph % (Auto) 22.4 % (13.4-35.0) 11/23/18 06:48 Keith % (Auto) 8.7 % (0.0-7.3) H 11/23/18 06:48 Eos % (Auto) 4.5 % (0.0-4.3) H 11/23/18 06:48 Baso % (Auto) 0.6 % (0.0-1.8) 11/23/18 06:48 Lymph # 1.7 K/mm3 (1.2-5.4) 11/23/18 06:48 Keith # 0.7 K/mm3 (0.0-0.8) 11/23/18 06:48 Eos # 0.3 K/mm3 (0.0-0.4) 11/23/18 06:48 Baso # 0.0 K/mm3 (0.0-0.1) 11/23/18 06:48 Add Manual Diff Complete 11/13/18 14:00 Total Counted 100 11/13/18 14:00 Seg Neutrophils % 63.8 % (40.0-70.0) 11/23/18 06:48 Seg Neuts % (Manual) 87.0 % (40.0-70.0) H 11/13/18 14:00 0 % 11/13/18 14:00 5.0 % (13.4-35.0) L 11/13/18 14:00 Reactive Lymphs % (Man) 0 % 11/13/18 14:00 1.0 % (0.0-7.3) 11/13/18 14:00 7.0 % (0.0-4.3) H 11/13/18 14:00 0 % (0.0-1.8) 11/13/18 14:00 0 % 11/13/18 14:00 0 % 11/13/18 14:00 0 % 11/13/18 14:00 0 % 11/13/18 14:00 Nucleated RBC % Not Reportable 11/13/18 14:00 Seg Neutrophils # 5.0 K/mm3 (1.8-7.7) 11/23/18 06:48 Seg Neutrophils # Man 3.3 K/mm3 (1.8-7.7) 11/13/18 14:00 Band Neutrophils # 0.0 K/mm3 11/13/18 14:00 0.2 K/mm3 (1.2-5.4) L 11/13/18 14:00 Abs React Lymphs (Man) 0.0 K/mm3 11/13/18 14:00 0.0 K/mm3 (0.0-0.8) 11/13/18 14:00 0.3 K/mm3 (0.0-0.4) 11/13/18 14:00 0.0 K/mm3 (0.0-0.1) 11/13/18 14:00 0.0 K/mm3 11/13/18 14:00 0.0 K/mm3 11/13/18 14:00 0.0 K/mm3 11/13/18 14:00 Blast Cells # 0.0 K/mm3 11/13/18 14:00 WBC Morphology Not Reportable 11/13/18 14:00 Hypersegmented Neuts Not Reportable 11/13/18 14:00 Hyposegmented Neuts Not Reportable 11/13/18 14:00 Hypogranular Neuts Not Reportable 11/13/18 14:00 Not Reportable 11/13/18 14:00 Not Reportable 11/13/18 14:00 Not Reportable 11/13/18 14:00 Not Reportable 11/13/18 14:00 Not Reportable 11/13/18 14:00 Not Reportable 11/13/18 14:00 Consistent w auto 11/13/18 14:00 Not Reportable 11/13/18 14:00 Plt Clumps, EDTA Not Reportable 11/13/18 14:00 Not Reportable 11/13/18 14:00 Not Reportable 11/13/18 14:00 Not Reportable 11/13/18 14:00 Plt Morphology Comment Not Reportable 11/13/18 14:00 RBC Morphology Not Reportable 11/13/18 14:00 Dimorphic RBCs Not Reportable 11/13/18 14:00 Few 11/13/18 14:00 Not Reportable 11/13/18 14:00 Few 11/13/18 14:00 1+ 11/13/18 14:00 Not Reportable 11/13/18 14:00 Not Reportable 11/13/18 14:00 Few 11/13/18 14:00 Not Reportable 11/13/18 14:00 Not Reportable 11/13/18 14:00 Not Reportable 11/13/18 14:00 Not Reportable 11/13/18 14:00 Not Reportable 11/13/18 14:00 Not Reportable 11/13/18 14:00 Not Reportable 11/13/18 14:00 Not Reportable 11/13/18 14:00 Not Reportable 11/13/18 14:00 Not Reportable 11/13/18 14:00 Not Reportable 11/13/18 14:00 Not Reportable 11/13/18 14:00 Acanthocytes (Spur) Not Reportable 11/13/18 14:00 Rouleaux Not Reportable 11/13/18 14:00 Not Reportable 11/13/18 14:00 Not Reportable 11/13/18 14:00 Not Reportable 11/13/18 14:00 Not Reportable 11/13/18 14:00 Hem Pathologist Commnt No 11/13/18 14:00 POC ABG pH 7.414 (7.35-7.45) 11/23/18 05:26 ABG pH 7.367 pH Units (7.350-7.450) 11/24/18 20:50 POC ABG pCO2 35.8 (35-45) 11/23/18 05:26 ABG pCO2 45.8 mm Hg 11/24/18 20:50 POC ABG pO2 93 (80-105) 11/23/18 05:26 ABG pO2 89.9 mm Hg (80.0-90.0) 11/24/18 20:50 POC ABG HCO3 22.9 (22-26 mml/L) 11/23/18 05:26 ABG HCO3 25.7 mmol/L (20.0-26.0) 11/24/18 20:50 POC ABG Total CO2 24 (23-27mmol/L) 11/23/18 05:26 POC ABG O2 Sat 97 11/23/18 05:26 ABG O2 Saturation 97.1 % (95.0-99.0) 11/24/18 20:50 ABG O2 Content 6.4 (0.0-44) 11/24/18 20:50 POC ABG Base Excess -2 ((-2) - (+3)mmol/L) 11/23/18 05:26 ABG Base Excess 0.4 mmol/L (-2.0-3.0) 11/24/18 20:50 ABG Hemoglobin 8.2 gm/dl (14.0-18.0) L 11/24/18 20:50 ABG Carboxyhemoglobin 1.8 % (0.0-5.0) 11/24/18 20:50 ABG Methemoglobin 0.5 % (0.0-1.5) 11/24/18 20:50 94.8 % (95.0-99.0) L 11/24/18 20:50 28 % 11/24/18 20:50 Sodium 143 mmol/L (137-145) 11/26/18 05:50 Potassium 4.2 mmol/L (3.6-5.0) 11/26/18 05:50 Chloride 109.7 mmol/L (98-107) H 11/26/18 05:50 Carbon Dioxide 26 mmol/L (22-30) 11/26/18 05:50 12 mmol/L 11/26/18 05:50 BUN 19 mg/dL (9-20) 11/26/18 05:50 0.4 mg/dL (0.8-1.5) L 11/26/18 05:50 Estimated GFR > 60 ml/min 11/26/18 05:50 48 % 11/26/18 05:50 Glucose 118 mg/dL (75-100) H 11/26/18 05:50 POC Glucose 142 (70-105) H 11/26/18 05:43 Lactic Acid 1.60 mmol/L (0.7-2.0) 11/14/18 12:50 Calcium 8.0 mg/dL (8.4-10.2) L 11/26/18 05:50 Magnesium 2.00 mg/dL (1.7-2.3) 11/26/18 05:50 0.70 mg/dL (0.1-1.2) 11/13/18 14:00 AST 154 units/L (5-40) H 11/13/18 14:00 ALT 134 units/L (7-56) H 11/13/18 14:00 586 units/L (35-129) H 11/13/18 14:00 510 units/L (55-170) H 11/13/18 14:49 CK-MB (CK-2) 4.4 ng/mL (0.0-4.0) H 11/13/18 14:49 CK-MB (CK-2) Rel Index 0.8 (0-4) 11/13/18 14:49 0.348 ng/mL (0.00-0.029) H* 11/13/18 14:49 NT-Pro-B Natriuret Pep 3679 pg/mL (0-900) H 11/13/18 14:49 6.8 g/dL (6.3-8.2) 11/13/18 14:00 1.2 g/dL (3.9-5) L 11/13/18 14:00 0.2 % 11/13/18 14:00 Triglycerides 284 mg/dL (2-149) H 11/13/18 14:49 Cholesterol 56 mg/dL (50-199) 11/13/18 14:49 4 mg/dL (50-130) L 11/13/18 14:49 7 mg/dL (40-59) L 11/13/18 14:49 8.00 % 11/13/18 14:49 Yellow (Yellow) 11/13/18 14:44 Slightly-cloudy (Clear) 11/13/18 14:44 6.0 (5.0-7.0) 11/13/18 14:44 Ur Specific [place] 1.017 (1.003-1.030) 11/13/18 14:44 30 mg/dl mg/dL (Negative) 11/13/18 14:44 Neg mg/dL (Negative) 11/13/18 14:44 Neg mg/dL (Negative) 11/13/18 14:44 Neg (Negative) 11/13/18 14:44 Neg (Negative) 11/13/18 14:44 Neg (Negative) 11/13/18 14:44 4.0 mg/dL (<2.0) 11/13/18 14:44 Ur Leukocyte Esterase Mod (Negative) 11/13/18 14:44 36.0 /HPF (0.0-6.0) H 11/13/18 14:44 21.0 /HPF (0.0-6.0) 11/13/18 14:44 1+ /HPF (Negative) 11/13/18 14:44 Few /HPF 11/13/18 14:44 3+ /HPF 11/13/18 14:44 Hepatitis A IgM Ab Non-reactive (NonReactive) 11/14/18 02:00 Hep Bs Antigen Non-reactive (Negative) 11/14/18 02:00 Hep B Core IgM Ab Non-reactive (NonReactive) 11/14/18 02:00 Non-reactive (NonReactive) 11/14/18 02:00 HIV 1&2 Antibody Rapid Non react (Non React) 11/14/18 02:00 Non react (Non React) 11/14/18 02:00 Blood Type O POSITIVE 11/13/18 14:49 Antibody Screen Negative 11/13/18 14:49 Crossmatch See Detail 11/13/18 14:49 Active Medications - Current Medications Current Medications: Generic Name Dose Route Start Last Admin Trade Name Freq PRN Reason Stop Dose Admin Albuterol 2.5 mg 11/19/18 17:21 Proventil IH Q6HRT PRN Shortness Of Breath Amlodipine Besylate 5 mg 11/20/18 13:00 11/25/18 09:27 Norvasc PO 5 mg QDAY LENCHO Administration Lipase/Protease/Amylase 1 each 11/14/18 14:20 Pancreaze 10,500 Unit FEEDTUBE PRN PRN For Clogged Feeding Tube Furosemide 20 mg 11/25/18 11:00 11/25/18 11:58 Lasix IV 11/27/18 10:01 20 mg DAILY LENCHO Administration Glycopyrrolate 2 mg 11/25/18 14:00 11/26/18 06:09 Robinul PO 2 mg Q8HR LENCHO Administration Heparin Sodium (Porcine) 5,000 unit 11/14/18 03:30 11/25/18 22:39 Heparin SUB-Q 5,000 unit Q12HR LENCHO Administration Hydralazine HCl 10 mg 11/20/18 12:30 11/20/18 12:26 Apresoline IV 10 mg Q4H PRN Administration Blood Pressure Hydrophilic Ointment 1 applic 11/24/18 08:23 Vaseline Lip Therapy TP Q2HR PRN Dry Lips Insulin Glargine 20 units 11/23/18 22:00 11/25/18 22:38 Lantus SUB-Q 20 units QHS LENCHO Administration Insulin Human Lispro 0 unit 11/14/18 06:00 11/26/18 06:05 Humalog SUB-Q Not Given Q6HR [facility] Protocol Lansoprazole 30 mg 11/16/18 10:00 11/25/18 09:27 Prevacid Solutab FEEDTUBE 30 mg QDAY LENCHO Administration Linezolid 600 mg 11/19/18 10:00 11/25/18 22:38 Zyvox PO 11/29/18 23:59 600 mg BID LENCHO Administration Metoclopramide HCl 10 mg 11/24/18 14:00 11/26/18 06:09 Reglan IV 11/27/18 13:59 10 mg Q8HR LENCHO Administration Multi-Ingred Cream/Lotion/Oil/Oint 1 applic 11/24/18 08:23 11/24/18 21:28 Artificial Tears Ophth Oint OU 1 applic Q4HR PRN Administration Dry Eye(s) Scopolamine 1 each 11/19/18 15:00 11/25/18 14:31 Transderm-Scop TD 1 each Q3D LENCHO Administration Simple Syrup 15 ml 11/14/18 14:20 Simple Syrup FEEDTUBE PRN PRN Hypoglycemia Simple Syrup 30 ml 11/14/18 14:20 Simple Syrup FEEDTUBE PRN PRN Hypoglycemia Sodium Bicarbonate 325 mg 11/14/18 14:20 Sodium Bicarbonate FEEDTUBE PRN PRN For Clogged Feeding Tube Sodium Hypochlorite 1 applic 11/16/18 13:00 11/25/18 22:00 Dakin's Half Strength TP Not Given BID LENCHO Nutrition/Malnutrition Assess - Dietary Evaluation Nutrition/Malnutrition Findings: Nutrition Notes Start: 11/14/18 10:33 Freq: Status: Active Protocol: Document 11/24/18 10:39 LM (Rec: 11/24/18 10:58 LM [facility]-[id number]) Nutrition Notes Initial or Follow up Reassessment Current Diagnosis Acute Kidney Injury,Decubitus( Pressure Ulcer),Diabetes, Sepsis,Hypertension,Heart Failure,Respiratory Failure, Stroke Other Pertinent Diagnosis sacral wound, UTI, Dysphagia, Chronic encephalopathy Current Diet Vital AF 1.2 at 60 ml/hr Labs/Tests BG 137 Pertinent Medications Reviewed Height 5 ft 9 in Weight 96 kg [place] Body Weight (kg) 72.72 BMI 31.2 Subjective/Other Information TF running at 60 ml/hr. Pt tolerating TF. Percent of energy/protein needs met: 93%/100% Burn Absent Trauma Absent #1 Nutrition Diagnosis Inadequate oral intake Diagnosis Progress(for reassessment Continues documentation) Is patient on ventilator? No Is Patient Ambulatory and/or Out of Bed No REE-([facility]-confined to bed) 2009.792 Calculation Used for Recommendations [facility] Additional Notes Pro needs 1.2-2g/k-168g/ day Fluid needs 1ml/kcal Nutrition Intervention Change Diet Order: Continue TF Nutrition Support: Vital AF 1.2 at 60ml/hr with 100ml water flush q4h. Kcal 1,728 Protein (gm) 108 Carbohydrates (gm) 159 Fat (gm) 78 Fluid (mL) 1,168 Fiber (gm) 7 Goal #1 TF to meet at least 75% of energy and protein needs Anticipated Discharge Needs: Continue TF Follow-Up By: 12/01/18 Additional Comments F/U for TF tolerance and rate
[2018-11-26] MEDS: LASIX IV SCH (10:18)
[2018-11-26] MEDS: PREVACID SOLUTAB FEEDTUBE SCH (10:19)
[2018-11-26] MEDS: NORVASC PO SCH (10:19)
[2018-11-26] MEDS: HEPARIN SUB-Q SCH ×2 (10:20→23:43)
[2018-11-26] MEDS: ZYVOX PO SCH ×2 (10:30→23:49)
--- NOTE | 2018-11-26 13:17 | Progress Note ---
Assessment and Plan Cultures: 11/13 BCx - VRE 11/13 UCx - >100k mixed kole 11/13 Sputum Cx - not run due to contamination 11/16/2018 Blood culture: no growth thus far A/P: 77 yo M PMHx CVA, seizures, HTN, DM2 admitted for worsenign respiratory status. 1. Septic shock secondary to VRE bacteremia: Off pressors. Source: urine v/s large sacral decubitus ulcer. TTE poor windows, if repeat blood cultures remain negative, would not recommend GLORIA since overall prognosis remains extremely poor and he is not going to be a candidate for any valve surgeries. Repeat blood cultures are negative. 2. Acute on chronic respiratory failure - CXR with congestion, no focal infiltrate to suggest pneumonia. VRE / Enterococcus rarely causes pneumonia. 3. UTI - Urine cultures with mixed kole. >100 CFU, probably cause of Enterococcal bacteremia. 4. Large sacral decubitus ulcer, infected, with eschar: could be the source of the VRE bacteremia. Appreciate General Surgery recommendations. Agree that progn osis is extremely poor. No plans for debridement now. 5. DM-2 6. Hx of CVA: s/p trach and PEG. 7. Elevated LFTs: probably from sepsis. RUQ US showed collapsed GB, no gallstones, trace ascites and hepatic steatosis. Recs: - continue PO Linezolid 600 mg BID. Stop date 11/29. Prolonged abx are going to be futile. - monitor platelets while on linezolid - noted cancellation of wound debridement as patient would not benefit per surgery and family non-committal. - continue wound care and contact isolation - overall prognosis remains extremely poor Thank you for the consult, we will continue to follow. Darcy Noonan MD [facility] M: [phone] O: [phone] F: [phone] Subjective Principal diagnosis: Severe sepsis with shock; Ac and ch resp failure; Metabolic encephalopathy Interval history: No change. Afebrile, normal white count. Objective - Exam Narrative Exam: Physical Exam: Constitutional: Non-responsive. Oral: dentition fair, no thrush Cardiovascular: S1, S2 normal. Respiratory: Good air entry, clear to auscultation bilaterally GI: Soft, non-tender; bowel sounds normal. No peritoneal signs. Musculoskeletal: No pedal edema, no cyanosis. Skin: No rash or abscess Hem/Lymphatic: No palpable cervical or supraclavicular nodes. No lymphangitis Psych: Mood ok. Affect normal Neurological: Intubated, non-responsive. - Constitutional Vitals: Vital Signs Temp Pulse Resp BP Pulse Ox 99.8 F H 97 H 19 164/80 88 11/26/18 12:00 11/26/18 10:19 11/26/18 07:31 11/26/18 10:19 11/26/18 07:31 Temperature -Last 24 Hours Temperature 99.8 F Temperature 99.8 F Temperature 98.7 F Temperature 98.7 F Temperature 98.9 F Temperature 98.8 F Temperature 98.2 F - Labs CBC & Chem 7: 11/26/18 05:50 11/26/18 05:50 Labs: Abnormal lab results 11/25/18 11/25/18 11/25/18 Range/Units 11:46 17:45 23:39 RBC (3.65-5.03) M/mm3 Hgb (11.8-15.2) gm/dl Hct (35.5-45.6) % RDW (13.2-15.2) % Plt Count (140-440) K/mm3 Chloride (98-107) mmol/L Creatinine (0.8-1.5) mg/dL Glucose (75-100) mg/dL POC Glucose 160 H 107 H 118 H (70-105) Calcium (8.4-10.2) mg/dL 11/26/18 11/26/18 11/26/18 Range/Units 05:43 05:50 05:50 RBC 2.91 L (3.65-5.03) M/mm3 Hgb 8.1 L (11.8-15.2) gm/dl Hct 25.1 L (35.5-45.6) % RDW 19.4 H (13.2-15.2) % Plt Count 127 L (140-440) K/mm3 Chloride 109.7 H (98-107) mmol/L Creatinine 0.4 L (0.8-1.5) mg/dL Glucose 118 H (75-100) mg/dL POC Glucose 142 H (70-105) Calcium 8.0 L (8.4-10.2) mg/dL 11/26/18 Range/Units 12:26 RBC (3.65-5.03) M/mm3 Hgb (11.8-15.2) gm/dl Hct (35.5-45.6) % RDW (13.2-15.2) % Plt Count (140-440) K/mm3 Chloride (98-107) mmol/L Creatinine (0.8-1.5) mg/dL Glucose (75-100) mg/dL POC Glucose 129 H (70-105) Calcium (8.4-10.2) mg/dL
[2018-11-26] MEDS: LANTUS SUB-Q SCH (23:45)
[2018-11-27] MEDS: HumaLOG SUB-Q SCH ×5 (01:38→23:33)
[2018-11-27] MEDS: REGLAN IV SCH (05:39)
[2018-11-27] MEDS: ROBINUL PO SCH ×3 (05:42→22:12)
[2018-11-27 06:00] LABS: Hematocrit 25.3 % (35.5-45.6); Hemoglobin 8.3 gm/dl (11.8-15.2); Mean Corpuscular HGB Conc 33 % (32-34); Mean Corpuscular Volume 85 fl (84-94); Platelet Count 134 K/mm3 (140-440); Red Blood Count 2.99 M/mm3 (3.65-5.03); Red Cell Distribution Width 18.4 % (13.2-15.2)
[2018-11-27 06:25] LABS: BUN/Creatinine Ratio 40; Blood Urea Nitrogen 20 mg/dL (9-20); Hemolysis Index 1
[2018-11-27] MEDS: DAKIN'S HALF STRENGTH TP SCH ×2 (10:20→22:10)
[2018-11-27] MEDS: HEPARIN SUB-Q SCH ×2 (10:27→22:10)
[2018-11-27] MEDS: NORVASC PO SCH (10:28)
[2018-11-27] MEDS: LASIX IV SCH (10:28)
[2018-11-27] MEDS: PREVACID SOLUTAB FEEDTUBE SCH (10:28)
[2018-11-27] MEDS: ZYVOX PO SCH ×2 (10:29→22:12)
--- NOTE | 2018-11-27 11:57 | Progress Note ---
Assessment and Plan Assessment and plan: Acute on chronic resp failure Cont. tracheostomy care, secretion control and airway mangement Pulmonology following Off ventilator Severe Sepsis with septic shock due to VRE off vasopressors Blood cultures Enterococcus Faecium 4 of 4 bottles ID Physician following Continue antibiotics per ID recommendations, Zyvox 600 mg twice a day for total of 14 day Sacral decub ulcer. Appreciate general surgery recommendations. considering surgery Diabetes mellitus type 2 Fingerstick q4h Anemia s/p 2 Units PRBC stool occult blood neg Hypertension by history. Monitor History of chronic hypoxic encephalopathy Hyperlipidemia Hypernatremia Hypokalemia Replaced Hypomagnesemia Resolved Full code status Poor prognosis. I had a long discussion with the who wants to continue full supportive and aggressive care. Surgery also had a discussion with the with regards to debridement of his wound. tells me she has not decided on surgery yet. History Interval history: Still only minimally responsive still considering debridement surgery sacral ulcer Transferred to [facility] Hospitalist Physical - Physical exam Narrative exam: Gen: Not in acute distress, lying in bed, ill looking HEENT: Normocephalic, atraumatic, tracheostomy to t-piece Neck: supple, no JVD,trach Heart: S1 and S2 reg, no murmurs, rubs or gallop Lungs: Clear, no crackles, no rhonchi Abd: soft, non tender, non distended, normal BS, PEG tube Ext: No edema, no clubbing, no cyanosis Neuro: Minimal responsive, Does not follow commands Sacral:sacral decub ulcer - Constitutional Vitals: Temp Pulse Resp BP Pulse Ox 97 F L 74 16 167/73 98 11/27/18 08:00 11/27/18 10:28 11/27/18 07:31 11/27/18 10:28 11/27/18 07:31 General appearance: Present: no acute distress, obese Results - Labs CBC & Chem 7: 11/27/18 05:35 11/27/18 05:35 Labs: Laboratory Last Values WBC 9.0 K/mm3 (4.5-11.0) 11/27/18 05:35 RBC 2.99 M/mm3 (3.65-5.03) L 11/27/18 05:35 Hgb 8.3 gm/dl (11.8-15.2) L 11/27/18 05:35 Hct 25.3 % (35.5-45.6) L 11/27/18 05:35 MCV 85 fl (84-94) 11/27/18 05:35 MCH 28 pg (28-32) 11/27/18 05:35 MCHC 33 % (32-34) 11/27/18 05:35 RDW 18.4 % (13.2-15.2) H 11/27/18 05:35 Plt Count 134 K/mm3 (140-440) L 11/27/18 05:35 Lymph % (Auto) 22.4 % (13.4-35.0) 11/23/18 06:48 [place] % (Auto) 8.7 % (0.0-7.3) H 11/23/18 06:48 Eos % (Auto) 4.5 % (0.0-4.3) H 11/23/18 06:48 Baso % (Auto) 0.6 % (0.0-1.8) 11/23/18 06:48 Lymph # 1.7 K/mm3 (1.2-5.4) 11/23/18 06:48 [place] # 0.7 K/mm3 (0.0-0.8) 11/23/18 06:48 Eos # 0.3 K/mm3 (0.0-0.4) 11/23/18 06:48 Baso # 0.0 K/mm3 (0.0-0.1) 11/23/18 06:48 Add Manual Diff Complete 11/13/18 14:00 Total Counted 100 11/13/18 14:00 Seg Neutrophils % 63.8 % (40.0-70.0) 11/23/18 06:48 Seg Neuts % (Manual) 87.0 % (40.0-70.0) H 11/13/18 14:00 0 % 11/13/18 14:00 5.0 % (13.4-35.0) L 11/13/18 14:00 Reactive Lymphs % (Man) 0 % 11/13/18 14:00 1.0 % (0.0-7.3) 11/13/18 14:00 7.0 % (0.0-4.3) H 11/13/18 14:00 0 % (0.0-1.8) 11/13/18 14:00 0 % 11/13/18 14:00 0 % 11/13/18 14:00 0 % 11/13/18 14:00 0 % 11/13/18 14:00 Nucleated RBC % Not Reportable 11/13/18 14:00 Seg Neutrophils # 5.0 K/mm3 (1.8-7.7) 11/23/18 06:48 Seg Neutrophils # Man 3.3 K/mm3 (1.8-7.7) 11/13/18 14:00 Band Neutrophils # 0.0 K/mm3 11/13/18 14:00 0.2 K/mm3 (1.2-5.4) L 11/13/18 14:00 Abs React Lymphs (Man) 0.0 K/mm3 11/13/18 14:00 0.0 K/mm3 (0.0-0.8) 11/13/18 14:00 0.3 K/mm3 (0.0-0.4) 11/13/18 14:00 0.0 K/mm3 (0.0-0.1) 11/13/18 14:00 0.0 K/mm3 11/13/18 14:00 0.0 K/mm3 11/13/18 14:00 0.0 K/mm3 11/13/18 14:00 Blast Cells # 0.0 K/mm3 11/13/18 14:00 WBC Morphology Not Reportable 11/13/18 14:00 Hypersegmented Neuts Not Reportable 11/13/18 14:00 Hyposegmented Neuts Not Reportable 11/13/18 14:00 Hypogranular Neuts Not Reportable 11/13/18 14:00 Not Reportable 11/13/18 14:00 Not Reportable 11/13/18 14:00 Not Reportable 11/13/18 14:00 Not Reportable 11/13/18 14:00 Not Reportable 11/13/18 14:00 Not Reportable 11/13/18 14:00 Consistent w auto 11/13/18 14:00 Not Reportable 11/13/18 14:00 Plt Clumps, EDTA Not Reportable 11/13/18 14:00 Not Reportable 11/13/18 14:00 Not Reportable 11/13/18 14:00 Not Reportable 11/13/18 14:00 Plt Morphology Comment Not Reportable 11/13/18 14:00 RBC Morphology Not Reportable 11/13/18 14:00 Dimorphic RBCs Not Reportable 11/13/18 14:00 Few 11/13/18 14:00 Not Reportable 11/13/18 14:00 Few 11/13/18 14:00 1+ 11/13/18 14:00 Not Reportable 11/13/18 14:00 Not Reportable 11/13/18 14:00 Few 11/13/18 14:00 Not Reportable 11/13/18 14:00 Not Reportable 11/13/18 14:00 Not Reportable 11/13/18 14:00 Not Reportable 11/13/18 14:00 Not Reportable 11/13/18 14:00 Not Reportable 11/13/18 14:00 Not Reportable 11/13/18 14:00 Not Reportable 11/13/18 14:00 Not Reportable 11/13/18 14:00 Not Reportable 11/13/18 14:00 Not Reportable 11/13/18 14:00 Not Reportable 11/13/18 14:00 Acanthocytes (Spur) Not Reportable 11/13/18 14:00 [place]leaux Not Reportable 11/13/18 14:00 Not Reportable 11/13/18 14:00 Not Reportable 11/13/18 14:00 Not Reportable 11/13/18 14:00 Not Reportable 11/13/18 14:00 Hem Pathologist Commnt No 11/13/18 14:00 POC ABG pH 7.414 (7.35-7.45) 11/23/18 05:26 ABG pH 7.367 pH Units (7.350-7.450) 11/24/18 20:50 POC ABG pCO2 35.8 (35-45) 11/23/18 05:26 ABG pCO2 45.8 mm Hg 11/24/18 20:50 POC ABG pO2 93 (80-105) 11/23/18 05:26 ABG pO2 89.9 mm Hg (80.0-90.0) 11/24/18 20:50 POC ABG HCO3 22.9 (22-26 mml/L) 11/23/18 05:26 ABG HCO3 25.7 mmol/L (20.0-26.0) 11/24/18 20:50 POC ABG Total CO2 24 (23-27mmol/L) 11/23/18 05:26 POC ABG O2 Sat 97 11/23/18 05:26 ABG O2 Saturation 97.1 % (95.0-99.0) 11/24/18 20:50 ABG O2 Content 6.4 (0.0-44) 11/24/18 20:50 POC ABG Base Excess -2 ((-2) - (+3)mmol/L) 11/23/18 05:26 ABG Base Excess 0.4 mmol/L (-2.0-3.0) 11/24/18 20:50 ABG Hemoglobin 8.2 gm/dl (14.0-18.0) L 11/24/18 20:50 ABG Carboxyhemoglobin 1.8 % (0.0-5.0) 11/24/18 20:50 ABG Methemoglobin 0.5 % (0.0-1.5) 11/24/18 20:50 94.8 % (95.0-99.0) L 11/24/18 20:50 28 % 11/24/18 20:50 Sodium 143 mmol/L (137-145) 11/27/18 05:35 Potassium 4.1 mmol/L (3.6-5.0) 11/27/18 05:35 Chloride 106.7 mmol/L (98-107) 11/27/18 05:35 Carbon Dioxide 28 mmol/L (22-30) 11/27/18 05:35 12 mmol/L 11/27/18 05:35 BUN 20 mg/dL (9-20) 11/27/18 05:35 0.5 mg/dL (0.8-1.5) L 11/27/18 05:35 Estimated GFR > 60 ml/min 11/27/18 05:35 40 % 11/27/18 05:35 Glucose 110 mg/dL (75-100) H 11/27/18 05:35 POC Glucose 75 (70-105) 11/27/18 05:48 Lactic Acid 1.60 mmol/L (0.7-2.0) 11/14/18 12:50 Calcium 8.0 mg/dL (8.4-10.2) L 11/27/18 05:35 Magnesium 2.00 mg/dL (1.7-2.3) 11/26/18 05:50 0.70 mg/dL (0.1-1.2) 11/13/18 14:00 AST 154 units/L (5-40) H 11/13/18 14:00 ALT 134 units/L (7-56) H 11/13/18 14:00 586 units/L (35-129) H 11/13/18 14:00 510 units/L (55-170) H 11/13/18 14:49 CK-MB (CK-2) 4.4 ng/mL (0.0-4.0) H 11/13/18 14:49 CK-MB (CK-2) Rel Index 0.8 (0-4) 11/13/18 14:49 0.348 ng/mL (0.00-0.029) H* 11/13/18 14:49 NT-Pro-B Natriuret Pep 3679 pg/mL (0-900) H 11/13/18 14:49 6.8 g/dL (6.3-8.2) 11/13/18 14:00 1.2 g/dL (3.9-5) L 11/13/18 14:00 0.2 % 11/13/18 14:00 Triglycerides 284 mg/dL (2-149) H 11/13/18 14:49 Cholesterol 56 mg/dL (50-199) 11/13/18 14:49 4 mg/dL (50-130) L 11/13/18 14:49 7 mg/dL (40-59) L 11/13/18 14:49 8.00 % 11/13/18 14:49 Yellow (Yellow) 11/13/18 14:44 Slightly-cloudy (Clear) 11/13/18 14:44 6.0 (5.0-7.0) 11/13/18 14:44 Ur Specific [place] 1.017 (1.003-1.030) 11/13/18 14:44 30 mg/dl mg/dL (Negative) 11/13/18 14:44 Neg mg/dL (Negative) 11/13/18 14:44 Neg mg/dL (Negative) 11/13/18 14:44 Neg (Negative) 11/13/18 14:44 Neg (Negative) 11/13/18 14:44 Neg (Negative) 11/13/18 14:44 4.0 mg/dL (<2.0) 11/13/18 14:44 Ur Leukocyte Esterase Mod (Negative) 11/13/18 14:44 36.0 /HPF (0.0-6.0) H 11/13/18 14:44 21.0 /HPF (0.0-6.0) 11/13/18 14:44 1+ /HPF (Negative) 11/13/18 14:44 Few /HPF 11/13/18 14:44 3+ /HPF 11/13/18 14:44 Hepatitis A IgM Ab Non-reactive (NonReactive) 11/14/18 02:00 Hep Bs Antigen Non-reactive (Negative) 11/14/18 02:00 Hep B Core IgM Ab Non-reactive (NonReactive) 11/14/18 02:00 Non-reactive (NonReactive) 11/14/18 02:00 HIV 1&2 Antibody Rapid Non react (Non React) 11/14/18 02:00 Non react (Non React) 11/14/18 02:00 Blood Type O POSITIVE 11/13/18 14:49 Antibody Screen Negative 11/13/18 14:49 Crossmatch See Detail 11/13/18 14:49 Active Medications - Current Medications Current Medications: Generic Name Dose Route Start Last Admin Trade Name Freq PRN Reason Stop Dose Admin Albuterol 2.5 mg 11/19/18 17:21 Proventil IH Q6HRT PRN Shortness Of Breath Amlodipine Besylate 5 mg 11/20/18 13:00 11/27/18 10:28 Norvasc PO 5 mg QDAY LENCHO Administration Lipase/Protease/Amylase 1 each 11/14/18 14:[address] 10,500 Unit FEEDTUBE PRN PRN For Clogged Feeding Tube Glycopyrrolate 2 mg 11/25/18 14:00 11/27/18 05:42 Robinul PO 2 mg Q8HR LENCHO Administration Heparin Sodium (Porcine) 5,000 unit 11/14/18 03:30 11/27/18 10:27 Heparin SUB-Q 5,000 unit Q12HR LENCHO Administration Hydralazine HCl 10 mg 11/20/18 12:30 11/20/18 12:26 Apresoline IV 10 mg Q4H PRN Administration Blood Pressure Hydrophilic Ointment 1 applic 11/24/18 08:23 Vaseline Lip Therapy TP Q2HR PRN Dry Lips Insulin Glargine 20 units 11/23/18 22:00 11/26/18 23:45 Lantus SUB-Q 20 units QHS LENCHO Administration Insulin Human Lispro 0 unit 11/14/18 06:00 11/27/18 05:42 Humalog SUB-Q Not Given Q6HR [facility] Protocol Lansoprazole 30 mg 11/16/18 10:00 11/27/18 10:28 Prevacid Solutab FEEDTUBE 30 mg QDAY LENCHO Administration Linezolid 600 mg 11/19/18 10:00 11/27/18 10:29 Zyvox PO 11/29/18 23:59 600 mg BID LENCHO Administration Metoclopramide HCl 10 mg 11/24/18 14:00 11/27/18 05:39 Reglan IV 11/27/18 13:59 10 mg Q8HR LENCHO Administration Multi-Ingred Cream/Lotion/Oil/Oint 1 applic 11/24/18 08:23 11/24/18 21:28 Artificial Tears Ophth Oint OU 1 applic Q4HR PRN Administration Dry Eye(s) Scopolamine 1 each 11/19/18 15:00 11/25/18 14:31 Transderm-Scop TD 1 each Q3D LENCHO Administration Simple Syrup 15 ml 11/14/18 14:20 Simple Syrup FEEDTUBE PRN PRN Hypoglycemia Simple Syrup 30 ml 11/14/18 14:20 Simple Syrup FEEDTUBE PRN PRN Hypoglycemia Sodium Bicarbonate 325 mg 11/14/18 14:20 Sodium Bicarbonate FEEDTUBE PRN PRN For Clogged Feeding Tube Sodium Hypochlorite 1 applic 11/16/18 13:00 11/26/18 22:07 Dakin's Half Strength TP 1 applicatio BID LENCHO Administration Nutrition/Malnutrition Assess - Dietary Evaluation Nutrition/Malnutrition Findings: Nutrition Notes Start: 11/14/18 10:33 Freq: Status: Active Protocol: Document 11/24/18 10:39 LM (Rec: 11/24/18 10:58 LM [facility]-[id number]) Nutrition Notes Initial or Follow up Reassessment Current Diagnosis Acute Kidney Injury,Decubitus( Pressure Ulcer),Diabetes, Sepsis,Hypertension,Heart Failure,Respiratory Failure, Stroke Other Pertinent Diagnosis sacral wound, UTI, Dysphagia, Chronic encephalopathy Current Diet Vital AF 1.2 at 60 ml/hr Labs/Tests BG 137 Pertinent Medications Reviewed Height 5 ft 9 in Weight 96 kg [place] Body Weight (kg) 72.72 BMI 31.2 Subjective/Other Information TF running at 60 ml/hr. Pt tolerating TF. Percent of energy/protein needs met: 93%/100% Burn Absent Trauma Absent #1 Nutrition Diagnosis Inadequate oral intake Diagnosis Progress(for reassessment Continues documentation) Is patient on ventilator? No Is Patient Ambulatory and/or Out of Bed No REE-([facility]-confined to bed) [phone] Calculation Used for Recommendations [facility] Additional Notes Pro needs 1.2-2g/k-168g/ day Fluid needs 1ml/kcal Nutrition Intervention Change Diet Order: Continue TF Nutrition Support: Vital AF 1.2 at 60ml/hr with 100ml water flush q4h. Kcal 1,728 Protein (gm) 108 Carbohydrates (gm) 159 Fat (gm) 78 Fluid (mL) 1,168 Fiber (gm) 7 Goal #1 TF to meet at least 75% of energy and protein needs Anticipated Discharge Needs: Continue TF Follow-Up By: 12/01/18 Additional Comments F/U for TF tolerance and rate
--- NOTE | 2018-11-27 12:27 | Progress Note ---
Assessment and Plan -Acute on chronic hypoxic respiratory failures/p trach to ATP -Severe sepsis with shock, off vasopressors -VRE bacteremia -UTI -Large sacral decubitus ulcer -Acute on chronic metabolic encephalopathy -Orophargyngeal dysphagia s/p PEG -h/o CVAs -Transaminitis probably secondary to hypotension -Type 2 DM -Hypokalemia -Trach care, airway clearance and secretion management -Accuchecks with glycemic control, continue with insulin infusion per protocol -Douglass catheter for accurate intake and output monitoring in this critically ill patient with history of chronic douglass/urinary retention/sacral decubitus ulcer -Avoid nephrotoxins -VTE prophylaxis -Stress ulcer prophylaxis -Antibiotics per ID, de-escalate as indicated -Mobility and off loading for sacral decubitus -Wound care -Optimize nutrition to help promote wound healing -Supportive transfusions as indicated, to keep HgB>7g/dL -Vasopressor support as indicated for MAP<65, with blood pressure unresponsive to volume resuscitation -Continue to monitor hemodynamics CONDITION: POOR PROGNOSIS; POOR CODE STATUS: FULL Discussed care plan with RT and RN. Discussed during ICU-IDT rounds Discharge planning Subjective Date of service: 11/27/18 Principal diagnosis: Severe sepsis with shock; Ac and ch resp failure; Metabolic encephalopathy Interval history: Patient known to our service. Per family request, care is being transferred back to us Patient is seen today for: Severe sepsis with septic shock; Acute and chronic respiratory failure on MVS; Acute and chronic metabolic encephalopathy; Seen and examined at bedside; 24hour events reviewed; nursing and respiratory care staff consulted; resting peacefully in bed; tolerating ATP, remains remains off vasopressor support; Vitals, labs, medications, chart reviewed. AMS is persistent; tolerating tube feeds; afebrile; no new issues Objective Vital Signs - 12hr 11/27/18 11/27/18 11/27/18 00:31 01:00 01:31 Temperature Pulse Rate 84 84 82 Pulse Rate [ From Monitor] Respiratory 13 14 12 Rate Blood Pressure 153/72 142/72 142/72 O2 Sat by Pulse 100 100 100 Oximetry O2 Sat by Pulse Oximetry [ Assessment] 11/27/18 11/27/18 11/27/18 02:00 02:31 03:00 Temperature Pulse Rate 84 82 83 Pulse Rate [ From Monitor] Respiratory 13 13 13 Rate Blood Pressure 148/75 148/75 148/67 O2 Sat by Pulse 99 100 98 Oximetry O2 Sat by Pulse Oximetry [ Assessment] 11/27/18 11/27/18 11/27/18 03:31 03:50 04:00 Temperature 97.3 F L Pulse Rate 82 81 Pulse Rate [ 80 From Monitor] Respiratory 12 21 Rate Blood Pressure 148/67 141/77 O2 Sat by Pulse 100 98 Oximetry O2 Sat by Pulse 99 Oximetry [ Assessment] 11/27/18 11/27/18 11/27/18 04:31 05:01 05:31 Temperature Pulse Rate 76 86 80 Pulse Rate [ From Monitor] Respiratory 13 13 14 Rate Blood Pressure 141/77 141/77 172/81 O2 Sat by Pulse 100 91 97 Oximetry O2 Sat by Pulse Oximetry [ Assessment] 11/27/18 11/27/18 11/27/18 06:00 06:31 07:00 Temperature Pulse Rate 77 77 78 Pulse Rate [ From Monitor] Respiratory 17 14 14 Rate Blood Pressure 147/73 147/73 150/76 O2 Sat by Pulse 94 97 93 Oximetry O2 Sat by Pulse Oximetry [ Assessment] 11/27/18 11/27/18 11/27/18 07:31 08:00 10:00 Temperature 97 F L Pulse Rate 77 76 Pulse Rate [ From Monitor] Respiratory 16 Rate Blood Pressure 150/76 O2 Sat by Pulse 98 Oximetry O2 Sat by Pulse Oximetry [ Assessment] 11/27/18 10:28 Temperature Pulse Rate 74 Pulse Rate [ From Monitor] Respiratory Rate Blood Pressure 167/73 O2 Sat by Pulse Oximetry O2 Sat by Pulse Oximetry [ Assessment] Constitutional: no acute distress, other (elderly looking AAM , unresponsive; trach in place to ATP, moderate secretions) Eyes: non-icteric ENT: oropharynx moist Neck: supple, no lymphadenopathy, no JVD, other (midline trach) Effort: mildly labored Ascultation: Bilateral: diminished breath sounds, rales, rhonchi (scant in bases) Percussion: Bilateral: not dull Cardiovascular: regular rate and rhythm, other (S1,S2) Gastrointestinal: normoactive bowel sounds, soft, non-distended, other (PEG in place, chronic douglass catheter, scrotal edema) Integumentary: decubitus ulcer (see wound care notes) Extremities: no cyanosis, pink and warm, pulses normal, edema (2+) Neurologic: unable to assess (on vent), other (encephalopathic, unresponsive) Psychiatric: other (unable to assess) CBC and BMP: 11/28/18 04:28 11/28/18 04:28 ABG, PT/INR, D-dimer: ABG POC ABG pH 7.414 (7.35-7.45) 11/23/18 05:26 ABG pH 7.367 pH Units (7.350-7.450) 11/24/18 20:50 POC ABG pCO2 35.8 (35-45) 11/23/18 05:26 ABG pCO2 45.8 mm Hg 11/24/18 20:50 POC ABG pO2 93 (80-105) 11/23/18 05:26 ABG pO2 89.9 mm Hg (80.0-90.0) 11/24/18 20:50 POC ABG HCO3 22.9 (22-26 mml/L) 11/23/18 05:26 POC ABG Total CO2 24 (23-27mmol/L) 11/23/18 05:26 POC ABG O2 Sat 97 11/23/18 05:26 ABG O2 Saturation 97.1 % (95.0-99.0) 11/24/18 20:50 Abnormal lab findings: Abnormal Labs 11/13/18 11/13/18 11/13/18 03:30 14:00 14:00 WBC 3.8 L RBC 2.80 L Hgb 7.4 L Hct 22.9 L MCV 82 L MCH 27 L MCHC RDW 19.0 H Plt Count Lymph % (Auto) Early % (Auto) Eos % (Auto) Early # Seg Neutrophils % Seg Neuts % (Manual) 87.0 H Lymphocytes % (Manual) 5.0 L Eosinophils % (Manual) 7.0 H Seg Neutrophils # Lymphocytes # (Manual) 0.2 L POC ABG pH POC ABG pO2 ABG pO2 ABG Base Excess ABG Hemoglobin Oxyhemoglobin Sodium 147 H Potassium Chloride Carbon Dioxide 33 H BUN 50 H Creatinine Glucose 193 H POC Glucose Lactic Acid 3.70 H* Calcium 8.1 L Magnesium AST 154 H ALT 134 H Alkaline Phosphatase 586 H Total Creatine Kinase CK-MB (CK-2) Troponin T NT-Pro-B Natriuret Pep Albumin 1.2 L Triglycerides LDL Cholesterol Direct HDL Cholesterol Urine WBC (Auto) Crossmatch 0811/13/18 11/13/18 14:00 14:44 14:49 WBC RBC Hgb Hct MCV MCH MCHC RDW Plt Count Lymph % (Auto) Early % (Auto) Eos % (Auto) Early # Seg Neutrophils % Seg Neuts % (Manual) Lymphocytes % (Manual) Eosinophils % (Manual) Seg Neutrophils # Lymphocytes # (Manual) POC ABG pH POC ABG pO2 ABG pO2 ABG Base Excess ABG Hemoglobin Oxyhemoglobin Sodium Potassium Chloride Carbon Dioxide BUN Creatinine Glucose POC Glucose Lactic Acid 2.60 H* Calcium Magnesium AST ALT Alkaline Phosphatase Total Creatine Kinase 510 H CK-MB (CK-2) 4.4 H Troponin T 0.348 H* NT-Pro-B Natriuret Pep 3679 H Albumin Triglycerides 284 H LDL Cholesterol Direct 4 L HDL Cholesterol 7 L Urine WBC (Auto) 36.0 H Crossmatch 11/13/18 11/13/18 11/13/18 14:49 14:49 14:52 WBC RBC Hgb Hct MCV MCH MCHC RDW Plt Count Lymph % (Auto) Early % (Auto) Eos % (Auto) Early # Seg Neutrophils % Seg Neuts % (Manual) Lymphocytes % (Manual) Eosinophils % (Manual) Seg Neutrophils # Lymphocytes # (Manual) POC ABG pH POC ABG pO2 ABG pO2 ABG Base Excess ABG Hemoglobin Oxyhemoglobin Sodium Potassium Chloride Carbon Dioxide BUN Creatinine Glucose POC Glucose 205 H Lactic Acid 3.90 H* Calcium Magnesium AST ALT Alkaline Phosphatase Total Creatine Kinase CK-MB (CK-2) Troponin T NT-Pro-B Natriuret Pep Albumin Triglycerides LDL Cholesterol Direct HDL Cholesterol Urine WBC (Auto) Crossmatch See Detail 11/13/18 11/13/18 11/13/18 16:58 17:13 19:46 WBC RBC Hgb Hct MCV MCH MCHC RDW Plt Count Lymph % (Auto) Early % (Auto) Eos % (Auto) Early # Seg Neutrophils % Seg Neuts % (Manual) Lymphocytes % (Manual) Eosinophils % (Manual) Seg Neutrophils # Lymphocytes # (Manual) POC ABG pH 7.573 H POC ABG pO2 ABG pO2 ABG Base Excess ABG Hemoglobin Oxyhemoglobin Sodium Potassium Chloride Carbon Dioxide BUN Creatinine Glucose POC Glucose Lactic Acid 3.90 H* 4.40 H* Calcium Magnesium AST ALT Alkaline Phosphatase Total Creatine Kinase CK-MB (CK-2) Troponin T NT-Pro-B Natriuret Pep Albumin Triglycerides LDL Cholesterol Direct HDL Cholesterol Urine WBC (Auto) Crossmatch 11/13/18 11/14/18 11/14/18 21:34 04:50 05:23 WBC RBC Hgb Hct MCV MCH MCHC RDW Plt Count Lymph % (Auto) Early % (Auto) Eos % (Auto) Early # Seg Neutrophils % Seg Neuts % (Manual) Lymphocytes % (Manual) Eosinophils % (Manual) Seg Neutrophils # Lymphocytes # (Manual) POC ABG pH POC ABG pO2 ABG pO2 120.8 H ABG Base Excess ABG Hemoglobin 10.9 L Oxyhemoglobin Sodium Potassium Chloride Carbon Dioxide BUN Creatinine Glucose POC Glucose 263 H Lactic Acid 4.50 H* Calcium Magnesium AST ALT Alkaline Phosphatase Total Creatine Kinase CK-MB (CK-2) Troponin T NT-Pro-B Natriuret Pep Albumin Triglycerides LDL Cholesterol Direct HDL Cholesterol Urine WBC (Auto) Crossmatch 11/14/18 11/14/18 11/14/18 05:46 08:02 12:42 WBC RBC Hgb Hct MCV MCH MCHC RDW Plt Count Lymph % (Auto) Early % (Auto) Eos % (Auto) Early # Seg Neutrophils % Seg Neuts % (Manual) Lymphocytes % (Manual) Eosinophils % (Manual) Seg Neutrophils # Lymphocytes # (Manual) POC ABG pH 7.463 H POC ABG pO2 136 H ABG pO2 ABG Base Excess ABG Hemoglobin Oxyhemoglobin Sodium Potassium Chloride Carbon Dioxide BUN Creatinine Glucose POC Glucose 213 H Lactic Acid 2.70 H* Calcium Magnesium AST ALT Alkaline Phosphatase Total Creatine Kinase CK-MB (CK-2) Troponin T NT-Pro-B Natriuret Pep Albumin Triglycerides LDL Cholesterol Direct HDL Cholesterol Urine WBC (Auto) Crossmatch 11/14/18 11/14/18 11/14/18 14:17 14:17 15:50 WBC 13.1 H 13.1 H RBC 2.36 L 2.36 L Hgb 6.1 L 6.1 L Hct 19.6 L* 19.4 L* MCV 83 L 82 L MCH 26 L 26 L MCHC 31 L 31 L RDW 19.4 H 19.3 H Plt Count Lymph % (Auto) Early % (Auto) Eos % (Auto) Early # Seg Neutrophils % Seg Neuts % (Manual) Lymphocytes % (Manual) Eosinophils % (Manual) Seg Neutrophils # Lymphocytes # (Manual) POC ABG pH POC ABG pO2 ABG pO2 ABG Base Excess ABG Hemoglobin Oxyhemoglobin Sodium 148 H Potassium Chloride 110.3 H Carbon Dioxide BUN 56 H Creatinine Glucose 203 H POC Glucose Lactic Acid Calcium 7.6 L Magnesium AST ALT Alkaline Phosphatase Total Creatine Kinase CK-MB (CK-2) Troponin T NT-Pro-B Natriuret Pep Albumin Triglycerides LDL Cholesterol Direct HDL Cholesterol Urine WBC (Auto) Crossmatch 11/14/18 11/14/18 11/15/18 18:19 23:52 05:10 WBC 16.2 H RBC 3.22 L Hgb 8.8 L Hct 26.8 L D MCV 83 L MCH 27 L MCHC RDW 16.8 H Plt Count Lymph % (Auto) Early % (Auto) Eos % (Auto) Early # Seg Neutrophils % Seg Neuts % (Manual) Lymphocytes % (Manual) Eosinophils % (Manual) Seg Neutrophils # Lymphocytes # (Manual) POC ABG pH POC ABG pO2 ABG pO2 ABG Base Excess ABG Hemoglobin Oxyhemoglobin Sodium Potassium Chloride Carbon Dioxide BUN Creatinine Glucose POC Glucose 213 H 242 H Lactic Acid Calcium Magnesium AST ALT Alkaline Phosphatase Total Creatine Kinase CK-MB (CK-2) Troponin T NT-Pro-B Natriuret Pep Albumin Triglycerides LDL Cholesterol Direct HDL Cholesterol Urine WBC (Auto) Crossmatch 11/15/18 11/15/18 11/15/18 05:10 05:36 11:15 WBC RBC Hgb Hct MCV MCH MCHC RDW Plt Count Lymph % (Auto) Early % (Auto) Eos % (Auto) Early # Seg Neutrophils % Seg Neuts % (Manual) Lymphocytes % (Manual) Eosinophils % (Manual) Seg Neutrophils # Lymphocytes # (Manual) POC ABG pH POC ABG pO2 ABG pO2 ABG Base Excess ABG Hemoglobin Oxyhemoglobin Sodium 148 H Potassium 3.5 L Chloride 112.8 H Carbon Dioxide BUN 51 H Creatinine Glucose 154 H POC Glucose 143 H 139 H Lactic Acid Calcium 7.8 L Magnesium AST ALT Alkaline Phosphatase Total Creatine Kinase CK-MB (CK-2) Troponin T NT-Pro-B Natriuret Pep Albumin Triglycerides LDL Cholesterol Direct HDL Cholesterol Urine WBC (Auto) Crossmatch 11/15/18 11/15/18 11/15/18 12:00 18:28 20:56 WBC RBC Hgb Hct MCV MCH MCHC RDW Plt Count Lymph % (Auto) Early % (Auto) Eos % (Auto) Early # Seg Neutrophils % Seg Neuts % (Manual) Lymphocytes % (Manual) Eosinophils % (Manual) Seg Neutrophils # Lymphocytes # (Manual) POC ABG pH POC ABG pO2 ABG pO2 ABG Base Excess ABG Hemoglobin Oxyhemoglobin Sodium 148 H Potassium 3.2 L Chloride 113.0 H Carbon Dioxide BUN 44 H Creatinine Glucose 144 H POC Glucose 159 H 150 H Lactic Acid Calcium 7.7 L Magnesium AST ALT Alkaline Phosphatase Total Creatine Kinase CK-MB (CK-2) Troponin T NT-Pro-B Natriuret Pep Albumin Triglycerides LDL Cholesterol Direct HDL Cholesterol Urine WBC (Auto) Crossmatch 11/15/18 11/16/18 11/16/18 23:32 03:40 03:45 WBC 16.1 H RBC 3.30 L Hgb 8.9 L Hct 27.9 L MCV MCH 27 L MCHC RDW 17.5 H Plt Count Lymph % (Auto) Early % (Auto) Eos % (Auto) Early # Seg Neutrophils % Seg Neuts % (Manual) Lymphocytes % (Manual) Eosinophils % (Manual) Seg Neutrophils # Lymphocytes # (Manual) POC ABG pH POC ABG pO2 ABG pO2 147.0 H ABG Base Excess ABG Hemoglobin 12.0 L Oxyhemoglobin Sodium Potassium Chloride Carbon Dioxide BUN Creatinine Glucose POC Glucose 131 H Lactic Acid Calcium Magnesium AST ALT Alkaline Phosphatase Total Creatine Kinase CK-MB (CK-2) Troponin T NT-Pro-B Natriuret Pep Albumin Triglycerides LDL Cholesterol Direct HDL Cholesterol Urine WBC (Auto) Crossmatch 11/16/18 11/16/18 11/16/18 03:45 05:15 15:14 WBC RBC Hgb Hct MCV MCH MCHC RDW Plt Count Lymph % (Auto) Early % (Auto) Eos % (Auto) Early # Seg Neutrophils % Seg Neuts % (Manual) Lymphocytes % (Manual) Eosinophils % (Manual) Seg Neutrophils # Lymphocytes # (Manual) POC ABG pH POC ABG pO2 ABG pO2 ABG Base Excess ABG Hemoglobin Oxyhemoglobin Sodium 149 H Potassium 3.5 L Chloride 116.2 H Carbon Dioxide 21 L BUN 41 H Creatinine Glucose 146 H POC Glucose 155 H 215 H Lactic Acid Calcium 7.7 L Magnesium AST ALT Alkaline Phosphatase Total Creatine Kinase CK-MB (CK-2) Troponin T NT-Pro-B Natriuret Pep Albumin Triglycerides LDL Cholesterol Direct HDL Cholesterol Urine WBC (Auto) Crossmatch 11/16/18 11/16/18 11/17/18 18:20 23:49 04:49 WBC 12.1 H RBC 3.34 L Hgb 9.0 L Hct 28.1 L MCV MCH 27 L MCHC RDW 17.5 H Plt Count Lymph % (Auto) Early % (Auto) Eos % (Auto) Early # Seg Neutrophils % Seg Neuts % (Manual) Lymphocytes % (Manual) Eosinophils % (Manual) Seg Neutrophils # Lymphocytes # (Manual) POC ABG pH POC ABG pO2 ABG pO2 ABG Base Excess ABG Hemoglobin Oxyhemoglobin Sodium Potassium Chloride Carbon Dioxide BUN Creatinine Glucose POC Glucose 230 H 189 H Lactic Acid Calcium Magnesium AST ALT Alkaline Phosphatase Total Creatine Kinase CK-MB (CK-2) Troponin T NT-Pro-B Natriuret Pep Albumin Triglycerides LDL Cholesterol Direct HDL Cholesterol Urine WBC (Auto) Crossmatch 11/17/18 11/17/18 11/17/18 04:49 05:45 14:16 WBC RBC Hgb Hct MCV MCH MCHC RDW Plt Count Lymph % (Auto) Early % (Auto) Eos % (Auto) Early # Seg Neutrophils % Seg Neuts % (Manual) Lymphocytes % (Manual) Eosinophils % (Manual) Seg Neutrophils # Lymphocytes # (Manual) POC ABG pH POC ABG pO2 ABG pO2 ABG Base Excess ABG Hemoglobin Oxyhemoglobin Sodium 150 H Potassium 3.2 L Chloride 118.9 H Carbon Dioxide 20 L BUN 38 H Creatinine 0.7 L Glucose 164 H POC Glucose 181 H 172 H Lactic Acid Calcium 7.7 L Magnesium AST ALT Alkaline Phosphatase Total Creatine Kinase CK-MB (CK-2) Troponin T NT-Pro-B Natriuret Pep Albumin Triglycerides LDL Cholesterol Direct HDL Cholesterol Urine WBC (Auto) Crossmatch 11/17/18 11/17/18 11/18/18 23:36 Unknown 04:10 WBC RBC Hgb Hct MCV MCH MCHC RDW Plt Count Lymph % (Auto) Early % (Auto) Eos % (Auto) Early # Seg Neutrophils % Seg Neuts % (Manual) Lymphocytes % (Manual) Eosinophils % (Manual) Seg Neutrophils # Lymphocytes # (Manual) POC ABG pH POC ABG pO2 ABG pO2 105.9 H 101.8 H ABG Base Excess -2.3 L -3.2 L ABG Hemoglobin 11.5 L 10.2 L Oxyhemoglobin Sodium Potassium Chloride Carbon Dioxide BUN Creatinine Glucose POC Glucose 214 H Lactic Acid Calcium Magnesium AST ALT Alkaline Phosphatase Total Creatine Kinase CK-MB (CK-2) Troponin T NT-Pro-B Natriuret Pep Albumin Triglycerides LDL Cholesterol Direct HDL Cholesterol Urine WBC (Auto) Crossmatch 11/18/18 11/18/18 11/18/18 04:37 04:37 05:36 WBC RBC 3.10 L Hgb 8.5 L Hct 26.8 L MCV MCH 27 L MCHC RDW 17.8 H Plt Count Lymph % (Auto) 12.8 L Early % (Auto) 8.5 H Eos % (Auto) Early # 0.9 H Seg Neutrophils % 75.8 H Seg Neuts % (Manual) Lymphocytes % (Manual) Eosinophils % (Manual) Seg Neutrophils # 8.0 H Lymphocytes # (Manual) POC ABG pH POC ABG pO2 ABG pO2 ABG Base Excess ABG Hemoglobin Oxyhemoglobin Sodium 148 H Potassium 3.3 L Chloride 118.3 H Carbon Dioxide 20 L BUN 32 H Creatinine 0.7 L Glucose 154 H POC Glucose 171 H Lactic Acid Calcium 7.4 L Magnesium AST ALT Alkaline Phosphatase Total Creatine Kinase CK-MB (CK-2) Troponin T NT-Pro-B Natriuret Pep Albumin Triglycerides LDL Cholesterol Direct HDL Cholesterol Urine WBC (Auto) Crossmatch 11/18/18 11/18/18 11/18/18 12:10 17:27 23:56 WBC RBC Hgb Hct MCV MCH MCHC RDW Plt Count Lymph % (Auto) Early % (Auto) Eos % (Auto) Early # Seg Neutrophils % Seg Neuts % (Manual) Lymphocytes % (Manual) Eosinophils % (Manual) Seg Neutrophils # Lymphocytes # (Manual) POC ABG pH POC ABG pO2 ABG pO2 ABG Base Excess ABG Hemoglobin Oxyhemoglobin Sodium Potassium Chloride Carbon Dioxide BUN Creatinine Glucose POC Glucose 244 H 239 H 241 H Lactic Acid Calcium Magnesium AST ALT Alkaline Phosphatase Total Creatine Kinase CK-MB (CK-2) Troponin T NT-Pro-B Natriuret Pep Albumin Triglycerides LDL Cholesterol Direct HDL Cholesterol Urine WBC (Auto) Crossmatch 11/19/18 11/19/18 11/19/18 03:45 04:27 06:37 WBC RBC Hgb Hct MCV MCH MCHC RDW Plt Count Lymph % (Auto) Early % (Auto) Eos % (Auto) Early # Seg Neutrophils % Seg Neuts % (Manual) Lymphocytes % (Manual) Eosinophils % (Manual) Seg Neutrophils # Lymphocytes # (Manual) POC ABG pH POC ABG pO2 ABG pO2 95.5 H ABG Base Excess -4.0 L ABG Hemoglobin 5.9 L Oxyhemoglobin Sodium 147 H Potassium Chloride 119.2 H Carbon Dioxide 20 L BUN 28 H Creatinine 0.6 L Glucose 181 H POC Glucose 220 H Lactic Acid Calcium 7.6 L Magnesium AST ALT Alkaline Phosphatase Total Creatine Kinase CK-MB (CK-2) Troponin T NT-Pro-B Natriuret Pep Albumin Triglycerides LDL Cholesterol Direct HDL Cholesterol Urine WBC (Auto) Crossmatch 11/19/18 11/19/18 11/19/18 06:41 11:27 17:31 WBC RBC 3.28 L Hgb 9.0 L Hct 28.2 L MCV MCH MCHC RDW 17.9 H Plt Count Lymph % (Auto) Early % (Auto) 11.0 H Eos % (Auto) Early # 1.1 H Seg Neutrophils % Seg Neuts % (Manual) Lymphocytes % (Manual) Eosinophils % (Manual) Seg Neutrophils # Lymphocytes # (Manual) POC ABG pH POC ABG pO2 ABG pO2 ABG Base Excess ABG Hemoglobin Oxyhemoglobin Sodium Potassium Chloride Carbon Dioxide BUN Creatinine Glucose POC Glucose 280 H 300 H Lactic Acid Calcium Magnesium AST ALT Alkaline Phosphatase Total Creatine Kinase CK-MB (CK-2) Troponin T NT-Pro-B Natriuret Pep Albumin Triglycerides LDL Cholesterol Direct HDL Cholesterol Urine WBC (Auto) Crossmatch 11/19/18 11/20/18 11/20/18 23:30 03:03 03:03 WBC RBC 3.04 L Hgb 8.4 L Hct 26.1 L MCV MCH MCHC RDW 18.1 H Plt Count Lymph % (Auto) Early % (Auto) 11.0 H Eos % (Auto) Early # 0.9 H Seg Neutrophils % Seg Neuts % (Manual) Lymphocytes % (Manual) Eosinophils % (Manual) Seg Neutrophils # Lymphocytes # (Manual) POC ABG pH POC ABG pO2 ABG pO2 ABG Base Excess ABG Hemoglobin Oxyhemoglobin Sodium 148 H Potassium Chloride 117.4 H Carbon Dioxide BUN 24 H Creatinine 0.6 L Glucose 238 H POC Glucose 251 H Lactic Acid Calcium 7.9 L Magnesium AST ALT Alkaline Phosphatase Total Creatine Kinase CK-MB (CK-2) Troponin T NT-Pro-B Natriuret Pep Albumin Triglycerides LDL Cholesterol Direct HDL Cholesterol Urine WBC (Auto) Crossmatch 11/20/18 11/20/18 11/20/18 04:20 05:15 12:21 WBC RBC Hgb Hct MCV MCH MCHC RDW Plt Count Lymph % (Auto) Early % (Auto) Eos % (Auto) Early # Seg Neutrophils % Seg Neuts % (Manual) Lymphocytes % (Manual) Eosinophils % (Manual) Seg Neutrophils # Lymphocytes # (Manual) POC ABG pH POC ABG pO2 ABG pO2 91.3 H ABG Base Excess -2.6 L ABG Hemoglobin 8.3 L Oxyhemoglobin Sodium Potassium Chloride Carbon Dioxide BUN Creatinine Glucose POC Glucose 213 H 318 H Lactic Acid Calcium Magnesium AST ALT Alkaline Phosphatase Total Creatine Kinase CK-MB (CK-2) Troponin T NT-Pro-B Natriuret Pep Albumin Triglycerides LDL Cholesterol Direct HDL Cholesterol Urine WBC (Auto) Crossmatch 11/20/18 11/20/18 11/20/18 18:01 20:50 23:36 WBC RBC Hgb Hct MCV MCH MCHC RDW Plt Count Lymph % (Auto) Early % (Auto) Eos % (Auto) Early # Seg Neutrophils % Seg Neuts % (Manual) Lymphocytes % (Manual) Eosinophils % (Manual) Seg Neutrophils # Lymphocytes # (Manual) POC ABG pH POC ABG pO2 ABG pO2 90.8 H ABG Base Excess -2.1 L ABG Hemoglobin 13.4 L Oxyhemoglobin 94.9 L Sodium Potassium Chloride Carbon Dioxide BUN Creatinine Glucose POC Glucose 301 H 290 H Lactic Acid Calcium Magnesium AST ALT Alkaline Phosphatase Total Creatine Kinase CK-MB (CK-2) Troponin T NT-Pro-B Natriuret Pep Albumin Triglycerides LDL Cholesterol Direct HDL Cholesterol Urine WBC (Auto) Crossmatch 11/21/18 11/21/18 11/21/18 03:09 03:09 05:10 WBC RBC 3.05 L Hgb 8.5 L Hct 26.1 L MCV MCH MCHC RDW 18.7 H Plt Count Lymph % (Auto) Early % (Auto) 12.2 H Eos % (Auto) Early # 0.9 H Seg Neutrophils % Seg Neuts % (Manual) Lymphocytes % (Manual) Eosinophils % (Manual) Seg Neutrophils # Lymphocytes # (Manual) POC ABG pH POC ABG pO2 ABG pO2 ABG Base Excess ABG Hemoglobin Oxyhemoglobin Sodium 150 H Potassium 3.5 L Chloride 118.5 H Carbon Dioxide BUN 22 H Creatinine 0.6 L Glucose 279 H POC Glucose 307 H Lactic Acid Calcium 7.7 L Magnesium AST ALT Alkaline Phosphatase Total Creatine Kinase CK-MB (CK-2) Troponin T NT-Pro-B Natriuret Pep Albumin Triglycerides LDL Cholesterol Direct HDL Cholesterol Urine WBC (Auto) Crossmatch 11/21/18 11/21/18 11/21/18 11:24 17:23 23:20 WBC RBC Hgb Hct MCV MCH MCHC RDW Plt Count Lymph % (Auto) Early % (Auto) Eos % (Auto) Early # Seg Neutrophils % Seg Neuts % (Manual) Lymphocytes % (Manual) Eosinophils % (Manual) Seg Neutrophils # Lymphocytes # (Manual) POC ABG pH POC ABG pO2 ABG pO2 ABG Base Excess ABG Hemoglobin Oxyhemoglobin Sodium Potassium Chloride Carbon Dioxide BUN Creatinine Glucose POC Glucose 324 H 288 H 254 H Lactic Acid Calcium Magnesium AST ALT Alkaline Phosphatase Total Creatine Kinase CK-MB (CK-2) Troponin T NT-Pro-B Natriuret Pep Albumin Triglycerides LDL Cholesterol Direct HDL Cholesterol Urine WBC (Auto) Crossmatch 11/22/18 11/22/18 11/22/18 03:50 05:43 06:10 WBC RBC 2.93 L Hgb 8.1 L Hct 25.2 L MCV MCH MCHC RDW 18.6 H Plt Count Lymph % (Auto) Early % (Auto) 10.9 H Eos % (Auto) 4.4 H Early # 0.9 H Seg Neutrophils % Seg Neuts % (Manual) Lymphocytes % (Manual) Eosinophils % (Manual) Seg Neutrophils # Lymphocytes # (Manual) POC ABG pH POC ABG pO2 ABG pO2 94.6 H ABG Base Excess ABG Hemoglobin 6.5 L Oxyhemoglobin Sodium Potassium Chloride Carbon Dioxide BUN Creatinine Glucose POC Glucose 227 H Lactic Acid Calcium Magnesium AST ALT Alkaline Phosphatase Total Creatine Kinase CK-MB (CK-2) Troponin T NT-Pro-B Natriuret Pep Albumin Triglycerides LDL Cholesterol Direct HDL Cholesterol Urine WBC (Auto) Crossmatch 11/22/18 11/22/18 11/22/18 06:10 11:35 17:07 WBC RBC Hgb Hct MCV MCH MCHC RDW Plt Count Lymph % (Auto) Early % (Auto) Eos % (Auto) Early # Seg Neutrophils % Seg Neuts % (Manual) Lymphocytes % (Manual) Eosinophils % (Manual) Seg Neutrophils # Lymphocytes # (Manual) POC ABG pH POC ABG pO2 ABG pO2 ABG Base Excess ABG Hemoglobin Oxyhemoglobin Sodium 146 H Potassium 3.3 L Chloride 114.8 H Carbon Dioxide BUN 21 H Creatinine 0.5 L Glucose 214 H POC Glucose 262 H 205 H Lactic Acid Calcium 7.7 L Magnesium AST ALT Alkaline Phosphatase Total Creatine Kinase CK-MB (CK-2) Troponin T NT-Pro-B Natriuret Pep Albumin Triglycerides LDL Cholesterol Direct HDL Cholesterol Urine WBC (Auto) Crossmatch 11/22/18 11/23/18 11/23/18 23:23 05:35 06:48 WBC RBC 2.90 L Hgb 8.0 L Hct 25.1 L MCV MCH MCHC RDW 18.7 H Plt Count Lymph % (Auto) Early % (Auto) 8.7 H Eos % (Auto) 4.5 H Early # Seg Neutrophils % Seg Neuts % (Manual) Lymphocytes % (Manual) Eosinophils % (Manual) Seg Neutrophils # Lymphocytes # (Manual) POC ABG pH POC ABG pO2 ABG pO2 ABG Base Excess ABG Hemoglobin Oxyhemoglobin Sodium Potassium Chloride Carbon Dioxide BUN Creatinine Glucose POC Glucose 165 H 140 H Lactic Acid Calcium Magnesium AST ALT Alkaline Phosphatase Total Creatine Kinase CK-MB (CK-2) Troponin T NT-Pro-B Natriuret Pep Albumin Triglycerides LDL Cholesterol Direct HDL Cholesterol Urine WBC (Auto) Crossmatch 11/23/18 11/23/18 11/23/18 06:48 12:00 17:16 WBC RBC Hgb Hct MCV MCH MCHC RDW Plt Count Lymph % (Auto) Early % (Auto) Eos % (Auto) Early # Seg Neutrophils % Seg Neuts % (Manual) Lymphocytes % (Manual) Eosinophils % (Manual) Seg Neutrophils # Lymphocytes # (Manual) POC ABG pH POC ABG pO2 ABG pO2 ABG Base Excess ABG Hemoglobin Oxyhemoglobin Sodium 146 H Potassium Chloride 115.4 H Carbon Dioxide BUN Creatinine 0.4 L Glucose 144 H POC Glucose 199 H 207 H Lactic Acid Calcium 7.8 L Magnesium AST ALT Alkaline Phosphatase Total Creatine Kinase CK-MB (CK-2) Troponin T NT-Pro-B Natriuret Pep Albumin Triglycerides LDL Cholesterol Direct HDL Cholesterol Urine WBC (Auto) Crossmatch 11/23/18 11/23/18 11/24/18 22:23 23:57 05:38 WBC RBC Hgb Hct MCV MCH MCHC RDW Plt Count Lymph % (Auto) Early % (Auto) Eos % (Auto) Early # Seg Neutrophils % Seg Neuts % (Manual) Lymphocytes % (Manual) Eosinophils % (Manual) Seg Neutrophils # Lymphocytes # (Manual) POC ABG pH POC ABG pO2 ABG pO2 ABG Base Excess ABG Hemoglobin Oxyhemoglobin Sodium Potassium Chloride Carbon Dioxide BUN Creatinine Glucose POC Glucose 186 H 172 H 137 H Lactic Acid Calcium Magnesium AST ALT Alkaline Phosphatase Total Creatine Kinase CK-MB (CK-2) Troponin T NT-Pro-B Natriuret Pep Albumin Triglycerides LDL Cholesterol Direct HDL Cholesterol Urine WBC (Auto) Crossmatch 11/24/18 11/24/18 11/24/18 12:23 17:53 20:50 WBC RBC Hgb Hct MCV MCH MCHC RDW Plt Count Lymph % (Auto) Early % (Auto) Eos % (Auto) Early # Seg Neutrophils % Seg Neuts % (Manual) Lymphocytes % (Manual) Eosinophils % (Manual) Seg Neutrophils # Lymphocytes # (Manual) POC ABG pH POC ABG pO2 ABG pO2 ABG Base Excess ABG Hemoglobin 8.2 L Oxyhemoglobin 94.8 L Sodium Potassium Chloride Carbon Dioxide BUN Creatinine Glucose POC Glucose 168 H 170 H Lactic Acid Calcium Magnesium AST ALT Alkaline Phosphatase Total Creatine Kinase CK-MB (CK-2) Troponin T NT-Pro-B Natriuret Pep Albumin Triglycerides LDL Cholesterol Direct HDL Cholesterol Urine WBC (Auto) Crossmatch 11/24/18 11/24/18 11/25/18 21:11 23:46 04:24 WBC RBC 2.78 L Hgb 7.7 L Hct 23.7 L MCV MCH MCHC RDW 18.7 H Plt Count Lymph % (Auto) Early % (Auto) Eos % (Auto) Early # Seg Neutrophils % Seg Neuts % (Manual) Lymphocytes % (Manual) Eosinophils % (Manual) Seg Neutrophils # Lymphocytes # (Manual) POC ABG pH POC ABG pO2 ABG pO2 ABG Base Excess ABG Hemoglobin Oxyhemoglobin Sodium Potassium Chloride Carbon Dioxide BUN Creatinine Glucose POC Glucose 190 H 169 H Lactic Acid Calcium Magnesium AST ALT Alkaline Phosphatase Total Creatine Kinase CK-MB (CK-2) Troponin T NT-Pro-B Natriuret Pep Albumin Triglycerides LDL Cholesterol Direct HDL Cholesterol Urine WBC (Auto) Crossmatch 11/25/18 11/25/18 11/25/18 04:24 04:24 05:14 WBC RBC Hgb Hct MCV MCH MCHC RDW Plt Count Lymph % (Auto) Early % (Auto) Eos % (Auto) Early # Seg Neutrophils % Seg Neuts % (Manual) Lymphocytes % (Manual) Eosinophils % (Manual) Seg Neutrophils # Lymphocytes # (Manual) POC ABG pH POC ABG pO2 ABG pO2 ABG Base Excess ABG Hemoglobin Oxyhemoglobin Sodium Potassium 3.5 L Chloride 108.1 H Carbon Dioxide BUN Creatinine 0.4 L Glucose 119 H POC Glucose 138 H Lactic Acid Calcium 7.9 L Magnesium 1.50 L AST ALT Alkaline Phosphatase Total Creatine Kinase CK-MB (CK-2) Troponin T NT-Pro-B Natriuret Pep Albumin Triglycerides LDL Cholesterol Direct HDL Cholesterol Urine WBC (Auto) Crossmatch 11/25/18 11/25/18 11/25/18 11:46 17:45 23:39 WBC RBC Hgb Hct MCV MCH MCHC RDW Plt Count Lymph % (Auto) Early % (Auto) Eos % (Auto) Early # Seg Neutrophils % Seg Neuts % (Manual) Lymphocytes % (Manual) Eosinophils % (Manual) Seg Neutrophils # Lymphocytes # (Manual) POC ABG pH POC ABG pO2 ABG pO2 ABG Base Excess ABG Hemoglobin Oxyhemoglobin Sodium Potassium Chloride Carbon Dioxide BUN Creatinine Glucose POC Glucose 160 H 107 H 118 H Lactic Acid Calcium Magnesium AST ALT Alkaline Phosphatase Total Creatine Kinase CK-MB (CK-2) Troponin T NT-Pro-B Natriuret Pep Albumin Triglycerides LDL Cholesterol Direct HDL Cholesterol Urine WBC (Auto) Crossmatch 11/26/18 11/26/18 11/26/18 05:43 05:50 05:50 WBC RBC 2.91 L Hgb 8.1 L Hct 25.1 L MCV MCH MCHC RDW 19.4 H Plt Count 127 L Lymph % (Auto) Early % (Auto) Eos % (Auto) Early # Seg Neutrophils % Seg Neuts % (Manual) Lymphocytes % (Manual) Eosinophils % (Manual) Seg Neutrophils # Lymphocytes # (Manual) POC ABG pH POC ABG pO2 ABG pO2 ABG Base Excess ABG Hemoglobin Oxyhemoglobin Sodium Potassium Chloride 109.7 H Carbon Dioxide BUN Creatinine 0.4 L Glucose 118 H POC Glucose 142 H Lactic Acid Calcium 8.0 L Magnesium AST ALT Alkaline Phosphatase Total Creatine Kinase CK-MB (CK-2) Troponin T NT-Pro-B Natriuret Pep Albumin Triglycerides LDL Cholesterol Direct HDL Cholesterol Urine WBC (Auto) Crossmatch 11/26/18 11/27/18 11/27/18 12:26 05:35 05:35 WBC RBC 2.99 L Hgb 8.3 L Hct 25.3 L MCV MCH MCHC RDW 18.4 H Plt Count 134 L Lymph % (Auto) Early % (Auto) Eos % (Auto) Early # Seg Neutrophils % Seg Neuts % (Manual) Lymphocytes % (Manual) Eosinophils % (Manual) Seg Neutrophils # Lymphocytes # (Manual) POC ABG pH POC ABG pO2 ABG pO2 ABG Base Excess ABG Hemoglobin Oxyhemoglobin Sodium Potassium Chloride Carbon Dioxide BUN Creatinine 0.5 L Glucose 110 H POC Glucose 129 H Lactic Acid Calcium 8.0 L Magnesium AST ALT Alkaline Phosphatase Total Creatine Kinase CK-MB (CK-2) Troponin T NT-Pro-B Natriuret Pep Albumin Triglycerides LDL Cholesterol Direct HDL Cholesterol Urine WBC (Auto) Crossmatch Allied health notes reviewed: nursing
--- NOTE | 2018-11-27 13:29 | Progress Note ---
Assessment and Plan Cultures: 11/13 BCx - VRE 11/13 UCx - >100k mixed kole 11/13 Sputum Cx - not run due to contamination 11/16/2018 Blood culture: no growth thus far A/P: 77 yo M PMHx CVA, seizures, HTN, DM2 admitted for worsenign respiratory status. 1. Septic shock secondary to VRE bacteremia: Off pressors. Source: urine v/s large sacral decubitus ulcer. TTE poor windows, if repeat blood cultures remain negative, would not recommend GLORIA since overall prognosis remains extremely poor and he is not going to be a candidate for any valve surgeries. Repeat blood cultures are negative. 2. Acute on chronic respiratory failure - CXR with congestion, no focal infiltrate to suggest pneumonia. VRE / Enterococcus rarely causes pneumonia. 3. UTI - Urine cultures with mixed kole. >100 CFU, probably cause of Enterococcal bacteremia. 4. Large sacral decubitus ulcer, infected, with eschar: could be the source of the VRE bacteremia. Appreciate General Surgery recommendations. Agree that progn osis is extremely poor. No plans for debridement now. 5. DM-2 6. Hx of CVA: s/p trach and PEG. 7. Elevated LFTs: probably from sepsis. RUQ US showed collapsed GB, no gallstones, trace ascites and hepatic steatosis. Recs: - continue PO Linezolid 600 mg BID. Stop date 11/29. Prolonged abx are going to be futile. - monitor platelets while on linezolid - noted cancellation of wound debridement as patient would not benefit per surgery and family non-committal. - continue wound care and contact isolation - overall prognosis remains extremely poor Thank you for the consult, we will sign off. Please call if any new questions arise. Darcy Noonan MD [facility] ([facility] M: [phone] O: [phone] F: [phone] Subjective Date of service: 11/27/18 Principal diagnosis: Severe sepsis with shock; Ac and ch resp failure; Metabolic encephalopathy Interval history: No change. Afebrile, normal white count. Objective - Exam Narrative Exam: Physical Exam: Constitutional: Non-responsive. Oral: dentition fair, no thrush Cardiovascular: S1, S2 normal. Respiratory: Good air entry, clear to auscultation bilaterally GI: Soft, non-tender; bowel sounds normal. No peritoneal signs. Musculoskeletal: No pedal edema, no cyanosis. Skin: No rash or abscess Hem/Lymphatic: No palpable cervical or supraclavicular nodes. No lymphangitis Psych: Mood ok. Affect normal Neurological: Intubated, non-responsive. - Constitutional Vitals: Vital Signs Temp Pulse Resp BP Pulse Ox 97.2 F L 73 15 143/75 99 11/27/18 12:00 11/27/18 12:00 11/27/18 12:00 11/27/18 12:00 11/27/18 12:00 Temperature -Last 24 Hours Temperature 97.2 F Temperature 97 F Temperature 97.3 F Temperature 97.3 F Temperature 98.8 F Temperature 99.1 F - Labs CBC & Chem 7: 11/27/18 05:35 11/27/18 05:35 Labs: Abnormal lab results 11/27/18 11/27/18 11/27/18 Range/Units 05:35 05:35 12:30 RBC 2.99 L (3.65-5.03) M/mm3 Hgb 8.3 L (11.8-15.2) gm/dl Hct 25.3 L (35.5-45.6) % RDW 18.4 H (13.2-15.2) % Plt Count 134 L (140-440) K/mm3 Creatinine 0.5 L (0.8-1.5) mg/dL Glucose 110 H (75-100) mg/dL POC Glucose 155 H (70-105) Calcium 8.0 L (8.4-10.2) mg/dL
[2018-11-27] MEDS: LANTUS SUB-Q SCH (22:29)
[2018-11-28] MEDS: ROBINUL PO SCH ×3 (05:35→21:24)
[2018-11-28 05:39] LABS: Hematocrit 22.8 % (35.5-45.6); Hemoglobin 7.7 gm/dl (11.8-15.2); Mean Corpuscular HGB Conc 34 % (32-34); Mean Corpuscular Volume 84 fl (84-94); Platelet Count 125 K/mm3 (140-440); Red Blood Count 2.72 M/mm3 (3.65-5.03); Red Cell Distribution Width 18.7 % (13.2-15.2)
[2018-11-28 06:08] LABS: BUN/Creatinine Ratio 58; Blood Urea Nitrogen 23 mg/dL (9-20); Hemolysis Index 0
[2018-11-28] MEDS: HumaLOG SUB-Q SCH ×3 (06:17→19:03)
--- NOTE | 2018-11-28 09:09 | Progress Note ---
Assessment and Plan Assessment and plan: Acute on chronic resp failure Cont. tracheostomy care, secretion control and airway mangement Pulmonology following Off ventilator Severe Sepsis with septic shock due to VRE off vasopressors Blood cultures Enterococcus Faecium 4 of 4 bottles ID Physician following Continue antibiotics per ID recommendations, Zyvox 600 mg twice a day for total of 14 day Sacral decub ulcer. Appreciate general surgery recommendations. considering surgery Diabetes mellitus type 2 Fingerstick q4h Anemia s/p 2 Units PRBC stool occult blood neg Hypertension by history. Monitor History of chronic hypoxic encephalopathy Hyperlipidemia Hypernatremia Hypokalemia Replaced Hypomagnesemia Resolved Full code status Poor prognosis. I had a long discussion with the who wants to continue full supportive and aggressive care. Surgery also had a discussion with the with regards to debridement of his wound. tells me she has not decided on surgery yet. History Interval history: Still only minimally responsive still considering debridement surgery sacral ulcer Transferred to [facility] Hospitalist Physical - Physical exam Narrative exam: Gen: Not in acute distress, lying in bed, ill looking HEENT: Normocephalic, atraumatic, tracheostomy to t-piece Neck: supple, no JVD,trach Heart: S1 and S2 reg, no murmurs, rubs or gallop Lungs: Clear, no crackles, no rhonchi Abd: soft, non tender, non distended, normal BS, PEG tube Ext: No edema, no clubbing, no cyanosis Neuro: Minimal responsive, Does not follow commands Sacral:sacral decub ulcer - Constitutional Vitals: Temp Pulse Resp BP Pulse Ox 96.0 F L 68 12 150/59 100 11/28/18 08:00 11/28/18 05:00 11/28/18 05:00 11/28/18 05:00 11/28/18 08:17 General appearance: Present: no acute distress, obese Results - Labs CBC & Chem 7: 11/28/18 04:28 11/28/18 04:28 Labs: Laboratory Last Values WBC 7.3 K/mm3 (4.5-11.0) 11/28/18 04:28 RBC 2.72 M/mm3 (3.65-5.03) L 11/28/18 04:28 Hgb 7.7 gm/dl (11.8-15.2) L 11/28/18 04:28 Hct 22.8 % (35.5-45.6) L 11/28/18 04:28 MCV 84 fl (84-94) 11/28/18 04:28 MCH 28 pg (28-32) 11/28/18 04:28 MCHC 34 % (32-34) 11/28/18 04:28 RDW 18.7 % (13.2-15.2) H 11/28/18 04:28 Plt Count 125 K/mm3 (140-440) L 11/28/18 04:28 Lymph % (Auto) 22.4 % (13.4-35.0) 11/23/18 06:48 [place] % (Auto) 8.7 % (0.0-7.3) H 11/23/18 06:48 Eos % (Auto) 4.5 % (0.0-4.3) H 11/23/18 06:48 Baso % (Auto) 0.6 % (0.0-1.8) 11/23/18 06:48 Lymph # 1.7 K/mm3 (1.2-5.4) 11/23/18 06:48 [place] # 0.7 K/mm3 (0.0-0.8) 11/23/18 06:48 Eos # 0.3 K/mm3 (0.0-0.4) 11/23/18 06:48 Baso # 0.0 K/mm3 (0.0-0.1) 11/23/18 06:48 Add Manual Diff Complete 11/13/18 14:00 Total Counted 100 11/13/18 14:00 Seg Neutrophils % 63.8 % (40.0-70.0) 11/23/18 06:48 Seg Neuts % (Manual) 87.0 % (40.0-70.0) H 11/13/18 14:00 0 % 11/13/18 14:00 5.0 % (13.4-35.0) L 11/13/18 14:00 Reactive Lymphs % (Man) 0 % 11/13/18 14:00 1.0 % (0.0-7.3) 11/13/18 14:00 7.0 % (0.0-4.3) H 11/13/18 14:00 0 % (0.0-1.8) 11/13/18 14:00 0 % 11/13/18 14:00 0 % 11/13/18 14:00 0 % 11/13/18 14:00 0 % 11/13/18 14:00 Nucleated RBC % Not Reportable 11/13/18 14:00 Seg Neutrophils # 5.0 K/mm3 (1.8-7.7) 11/23/18 06:48 Seg Neutrophils # Man 3.3 K/mm3 (1.8-7.7) 11/13/18 14:00 Band Neutrophils # 0.0 K/mm3 11/13/18 14:00 0.2 K/mm3 (1.2-5.4) L 11/13/18 14:00 Abs React Lymphs (Man) 0.0 K/mm3 11/13/18 14:00 0.0 K/mm3 (0.0-0.8) 11/13/18 14:00 0.3 K/mm3 (0.0-0.4) 11/13/18 14:00 0.0 K/mm3 (0.0-0.1) 11/13/18 14:00 0.0 K/mm3 11/13/18 14:00 0.0 K/mm3 11/13/18 14:00 0.0 K/mm3 11/13/18 14:00 Blast Cells # 0.0 K/mm3 11/13/18 14:00 WBC Morphology Not Reportable 11/13/18 14:00 Hypersegmented Neuts Not Reportable 11/13/18 14:00 Hyposegmented Neuts Not Reportable 11/13/18 14:00 Hypogranular Neuts Not Reportable 11/13/18 14:00 Not Reportable 11/13/18 14:00 Not Reportable 11/13/18 14:00 Not Reportable 11/13/18 14:00 Not Reportable 11/13/18 14:00 Not Reportable 11/13/18 14:00 Not Reportable 11/13/18 14:00 Consistent w auto 11/13/18 14:00 Not Reportable 11/13/18 14:00 Plt Clumps, EDTA Not Reportable 11/13/18 14:00 Not Reportable 11/13/18 14:00 Not Reportable 11/13/18 14:00 Not Reportable 11/13/18 14:00 Plt Morphology Comment Not Reportable 11/13/18 14:00 RBC Morphology Not Reportable 11/13/18 14:00 Dimorphic RBCs Not Reportable 11/13/18 14:00 Few 11/13/18 14:00 Not Reportable 11/13/18 14:00 Few 11/13/18 14:00 1+ 11/13/18 14:00 Not Reportable 11/13/18 14:00 Not Reportable 11/13/18 14:00 Few 11/13/18 14:00 Not Reportable 11/13/18 14:00 Not Reportable 11/13/18 14:00 Not Reportable 11/13/18 14:00 Not Reportable 11/13/18 14:00 Not Reportable 11/13/18 14:00 Not Reportable 11/13/18 14:00 Not Reportable 11/13/18 14:00 Not Reportable 11/13/18 14:00 Not Reportable 11/13/18 14:00 Not Reportable 11/13/18 14:00 Not Reportable 11/13/18 14:00 Not Reportable 11/13/18 14:00 Acanthocytes (Spur) Not Reportable 11/13/18 14:00 Rouleaux Not Reportable 11/13/18 14:00 Not Reportable 11/13/18 14:00 Not Reportable 11/13/18 14:00 Not Reportable 11/13/18 14:00 Not Reportable 11/13/18 14:00 Hem Pathologist Commnt No 11/13/18 14:00 POC ABG pH 7.414 (7.35-7.45) 11/23/18 05:26 ABG pH 7.367 pH Units (7.350-7.450) 11/24/18 20:50 POC ABG pCO2 35.8 (35-45) 11/23/18 05:26 ABG pCO2 45.8 mm Hg 11/24/18 20:50 POC ABG pO2 93 (80-105) 11/23/18 05:26 ABG pO2 89.9 mm Hg (80.0-90.0) 11/24/18 20:50 POC ABG HCO3 22.9 (22-26 mml/L) 11/23/18 05:26 ABG HCO3 25.7 mmol/L (20.0-26.0) 11/24/18 20:50 POC ABG Total CO2 24 (23-27mmol/L) 11/23/18 05:26 POC ABG O2 Sat 97 11/23/18 05:26 ABG O2 Saturation 97.1 % (95.0-99.0) 11/24/18 20:50 ABG O2 Content 6.4 (0.0-44) 11/24/18 20:50 POC ABG Base Excess -2 ((-2) - (+3)mmol/L) 11/23/18 05:26 ABG Base Excess 0.4 mmol/L (-2.0-3.0) 11/24/18 20:50 ABG Hemoglobin 8.2 gm/dl (14.0-18.0) L 11/24/18 20:50 ABG Carboxyhemoglobin 1.8 % (0.0-5.0) 11/24/18 20:50 ABG Methemoglobin 0.5 % (0.0-1.5) 11/24/18 20:50 94.8 % (95.0-99.0) L 11/24/18 20:50 28 % 11/24/18 20:50 Sodium 143 mmol/L (137-145) 11/28/18 04:28 Potassium 4.0 mmol/L (3.6-5.0) 11/28/18 04:28 Chloride 104.7 mmol/L (98-107) 11/28/18 04:28 Carbon Dioxide 29 mmol/L (22-30) 11/28/18 04:28 13 mmol/L 11/28/18 04:28 BUN 23 mg/dL (9-20) H 11/28/18 04:28 0.4 mg/dL (0.8-1.5) L 11/28/18 04:28 Estimated GFR > 60 ml/min 11/28/18 04:28 58 % 11/28/18 04:28 Glucose 112 mg/dL (75-100) H 11/28/18 04:28 POC Glucose 125 (70-105) H 11/28/18 06:23 Lactic Acid 1.60 mmol/L (0.7-2.0) 11/14/18 12:50 Calcium 8.0 mg/dL (8.4-10.2) L 11/28/18 04:28 Magnesium 2.00 mg/dL (1.7-2.3) 11/26/18 05:50 0.70 mg/dL (0.1-1.2) 11/13/18 14:00 AST 154 units/L (5-40) H 11/13/18 14:00 ALT 134 units/L (7-56) H 11/13/18 14:00 586 units/L (35-129) H 11/13/18 14:00 510 units/L (55-170) H 11/13/18 14:49 CK-MB (CK-2) 4.4 ng/mL (0.0-4.0) H 11/13/18 14:49 CK-MB (CK-2) Rel Index 0.8 (0-4) 11/13/18 14:49 0.348 ng/mL (0.00-0.029) H* 11/13/18 14:49 NT-Pro-B Natriuret Pep 3679 pg/mL (0-900) H 11/13/18 14:49 6.8 g/dL (6.3-8.2) 11/13/18 14:00 1.2 g/dL (3.9-5) L 11/13/18 14:00 0.2 % 11/13/18 14:00 Triglycerides 284 mg/dL (2-149) H 11/13/18 14:49 Cholesterol 56 mg/dL (50-199) 11/13/18 14:49 4 mg/dL (50-130) L 11/13/18 14:49 7 mg/dL (40-59) L 11/13/18 14:49 8.00 % 11/13/18 14:49 Yellow (Yellow) 11/13/18 14:44 Slightly-cloudy (Clear) 11/13/18 14:44 6.0 (5.0-7.0) 11/13/18 14:44 Ur Specific [place] 1.017 (1.003-1.030) 11/13/18 14:44 30 mg/dl mg/dL (Negative) 11/13/18 14:44 Neg mg/dL (Negative) 11/13/18 14:44 Neg mg/dL (Negative) 11/13/18 14:44 Neg (Negative) 11/13/18 14:44 Neg (Negative) 11/13/18 14:44 Neg (Negative) 11/13/18 14:44 4.0 mg/dL (<2.0) 11/13/18 14:44 Ur Leukocyte Esterase Mod (Negative) 11/13/18 14:44 36.0 /HPF (0.0-6.0) H 11/13/18 14:44 21.0 /HPF (0.0-6.0) 11/13/18 14:44 1+ /HPF (Negative) 11/13/18 14:44 Few /HPF 11/13/18 14:44 3+ /HPF 11/13/18 14:44 Hepatitis A IgM Ab Non-reactive (NonReactive) 11/14/18 02:00 Hep Bs Antigen Non-reactive (Negative) 11/14/18 02:00 Hep B Core IgM Ab Non-reactive (NonReactive) 11/14/18 02:00 Non-reactive (NonReactive) 11/14/18 02:00 HIV 1&2 Antibody Rapid Non react (Non React) 11/14/18 02:00 Non react (Non React) 11/14/18 02:00 Blood Type O POSITIVE 11/13/18 14:49 Antibody Screen Negative 11/13/18 14:49 Crossmatch See Detail 11/13/18 14:49 Active Medications - Current Medications Current Medications: Generic Name Dose Route Start Last Admin Trade Name Freq PRN Reason Stop Dose Admin Albuterol 2.5 mg 11/19/18 17:21 Proventil IH Q6HRT PRN Shortness Of Breath Amlodipine Besylate 5 mg 11/20/18 13:00 11/27/18 10:28 Norvasc PO 5 mg QDAY LENCHO Administration Lipase/Protease/Amylase 1 each 11/14/18 14:[address] 10,500 Unit FEEDTUBE PRN PRN For Clogged Feeding Tube Glycopyrrolate 2 mg 11/25/18 14:00 11/28/18 05:35 Robinul PO 2 mg Q8HR LENCHO Administration Heparin Sodium (Porcine) 5,000 unit 11/14/18 03:30 11/27/18 22:10 Heparin SUB-Q 5,000 unit Q12HR LENCHO Administration Hydralazine HCl 10 mg 11/20/18 12:30 11/20/18 12:26 Apresoline IV 10 mg Q4H PRN Administration Blood Pressure Hydrophilic Ointment 1 applic 11/24/18 08:23 Vaseline Lip Therapy TP Q2HR PRN Dry Lips Insulin Glargine 20 units 11/23/18 22:00 11/27/18 22:29 Lantus SUB-Q 20 units QHS LENCHO Administration Insulin Human Lispro 0 unit 11/14/18 06:00 11/28/18 06:17 Humalog SUB-Q Not Given Q6HR [facility] Protocol Lansoprazole 30 mg 11/16/18 10:00 11/27/18 10:28 Prevacid Solutab FEEDTUBE 30 mg QDAY LENCHO Administration Linezolid 600 mg 11/19/18 10:00 11/27/18 22:12 Zyvox PO 11/29/18 23:59 600 mg BID LENCHO Administration Multi-Ingred Cream/Lotion/Oil/Oint 1 applic 11/24/18 08:23 11/24/18 21:28 Artificial Tears Ophth Oint OU 1 applic Q4HR PRN Administration Dry Eye(s) Scopolamine 1 each 11/19/18 15:00 11/25/18 14:31 Transderm-Scop TD 1 each Q3D LENCHO Administration Simple Syrup 15 ml 11/14/18 14:20 Simple Syrup FEEDTUBE PRN PRN Hypoglycemia Simple Syrup 30 ml 11/14/18 14:20 Simple Syrup FEEDTUBE PRN PRN Hypoglycemia Sodium Bicarbonate 325 mg 11/14/18 14:20 Sodium Bicarbonate FEEDTUBE PRN PRN For Clogged Feeding Tube Sodium Hypochlorite 1 applic 11/16/18 13:00 11/27/18 22:10 Dakin's Half Strength TP 1 applicatio BID LENCHO Administration Nutrition/Malnutrition Assess - Dietary Evaluation Nutrition/Malnutrition Findings: Nutrition Notes Start: 11/14/18 10:33 Freq: Status: Active Protocol: Document 11/24/18 10:39 LM (Rec: 11/24/18 10:58 LM [facility]-[id number]) Nutrition Notes Initial or Follow up Reassessment Current Diagnosis Acute Kidney Injury,Decubitus( Pressure Ulcer),Diabetes, Sepsis,Hypertension,Heart Failure,Respiratory Failure, Stroke Other Pertinent Diagnosis sacral wound, UTI, Dysphagia, Chronic encephalopathy Current Diet Vital AF 1.2 at 60 ml/hr Labs/Tests BG 137 Pertinent Medications Reviewed Height 5 ft 9 in Weight 96 kg Julian Body Weight (kg) 72.72 BMI 31.2 Subjective/Other Information TF running at 60 ml/hr. Pt tolerating TF. Percent of energy/protein needs met: 93%/100% Burn Absent Trauma Absent #1 Nutrition Diagnosis Inadequate oral intake Diagnosis Progress(for reassessment Continues documentation) Is patient on ventilator? No Is Patient Ambulatory and/or Out of Bed No [facility] [phone] Calculation Used for Recommendations [facility] Additional Notes Pro needs 1.2-2g/k-168g/ day Fluid needs 1ml/kcal Nutrition Intervention Change Diet Order: Continue TF Nutrition Support: Vital AF 1.2 at 60ml/hr with 100ml water flush q4h. Kcal 1,728 Protein (gm) 108 Carbohydrates (gm) 159 Fat (gm) 78 Fluid (mL) 1,168 Fiber (gm) 7 Goal #1 TF to meet at least 75% of energy and protein needs Anticipated Discharge Needs: Continue TF Follow-Up By: 12/01/18 Additional Comments F/U for TF tolerance and rate
[2018-11-28] MEDS: PREVACID SOLUTAB FEEDTUBE SCH (09:48)
[2018-11-28] MEDS: ZYVOX PO SCH ×2 (09:48→21:24)
[2018-11-28] MEDS: NORVASC PO SCH (09:49)
[2018-11-28] MEDS: HEPARIN SUB-Q SCH ×2 (09:49→21:24)
[2018-11-28] MEDS: DAKIN'S HALF STRENGTH TP SCH ×2 (10:22→21:26)
--- NOTE | 2018-11-28 14:09 | Progress Note ---
Assessment and Plan -Acute on chronic hypoxic respiratory failures/p trach to ATP -Severe sepsis with shock, off vasopressors -VRE bacteremia -UTI -Large sacral decubitus ulcer -Acute on chronic metabolic encephalopathy -Orophargyngeal dysphagia s/p PEG -h/o CVAs -Transaminitis probably secondary to hypotension -Type 2 DM -Hypernatremia, improved -Decrease free water flushes from 300ml q4H to 200ml q4h. - Follow BMP and further adjust free water administration -prn CXR and ABG --Supportive transfusions as indicated, to keep HgB>7g/dL -Trach care, airway clearance and secretion management -Accuchecks with glycemic control, continue with insulin infusion per protocol -Douglass catheter for accurate intake and output monitoring in this critically ill patient with history of chronic douglass/urinary retention/sacral decubitus ulcer -Avoid nephrotoxins -VTE prophylaxis -Stress ulcer prophylaxis -Antibiotics per ID, -Mobility and off loading for sacral decubitus -Wound care -Optimize nutrition to help promote wound healing -Vasopressor support as indicated for MAP<65, with blood pressure unresponsive to volume resuscitation -Continue to monitor hemodynamics CONDITION: POOR PROGNOSIS; POOR CODE STATUS: FULL Discussed care plan with RT and RN. Discharge planning Subjective Date of service: 11/28/18 Principal diagnosis: Severe sepsis with shock; Ac and ch resp failure; Metabolic encephalopathy Interval history: Patient known to our service. Per family request, care is being transferred back to us Patient is seen today for: Severe sepsis with septic shock; Acute and chronic respiratory failure on MVS; Acute and chronic metabolic encephalopathy; Seen and examined at bedside; 24hour events reviewed; nursing and respiratory care staff consulted; resting peacefully in bed; tolerating ATP, remains remains off vasopressor support; Vitals, labs, medications, chart reviewed. AMS is persistent; tolerating tube feeds; afebrile; no new issues Objective Vital Signs - 12hr 11/28/18 11/28/18 11/28/18 03:00 03:45 04:00 Temperature 96.3 F L Pulse Rate 69 70 Pulse Rate [ 69 From Monitor] Respiratory 13 14 Rate Blood Pressure 138/65 138/65 O2 Sat by Pulse 99 99 Oximetry O2 Sat by Pulse 100 Oximetry [ Assessment] 11/28/18 11/28/18 11/28/18 05:00 06:00 07:00 Temperature Pulse Rate 68 67 67 Pulse Rate [ From Monitor] Respiratory 12 12 10 L Rate Blood Pressure 150/59 130/66 135/66 O2 Sat by Pulse 100 99 99 Oximetry O2 Sat by Pulse Oximetry [ Assessment] 11/28/18 11/28/18 11/28/18 08:00 08:16 08:17 Temperature 96.0 F L Pulse Rate 66 Pulse Rate [ 68 From Monitor] Respiratory 12 Rate Blood Pressure 137/66 O2 Sat by Pulse 99 100 Oximetry O2 Sat by Pulse 100 Oximetry [ Assessment] 11/28/18 11/28/18 11/28/18 09:01 09:49 10:00 Temperature Pulse Rate 68 73 76 Pulse Rate [ From Monitor] Respiratory 12 21 Rate Blood Pressure 158/66 158/66 147/64 O2 Sat by Pulse 99 96 Oximetry O2 Sat by Pulse Oximetry [ Assessment] 11/28/18 12:00 Temperature 96.0 F L Pulse Rate Pulse Rate [ 74 From Monitor] Respiratory 12 Rate Blood Pressure O2 Sat by Pulse 100 Oximetry O2 Sat by Pulse Oximetry [ Assessment] Constitutional: no acute distress, other (elderly looking AAM , unresponsive; trach in place to ATP, moderate secretions) Eyes: non-icteric ENT: oropharynx moist Neck: supple, no lymphadenopathy, no JVD, other (midline trach) Effort: mildly labored Ascultation: Bilateral: diminished breath sounds, rales, rhonchi (scant in bases) Percussion: Bilateral: not dull Cardiovascular: regular rate and rhythm, other (S1,S2) Gastrointestinal: normoactive bowel sounds, soft, non-distended, other (PEG in place, chronic douglass catheter, scrotal edema) Integumentary: decubitus ulcer (see wound care notes) Extremities: no cyanosis, pink and warm, pulses normal, edema (2+) Neurologic: unable to assess (on vent), other (encephalopathic, unresponsive) Psychiatric: other (unable to assess) CBC and BMP: 11/28/18 04:28 11/28/18 04:28 ABG, PT/INR, D-dimer: ABG POC ABG pH 7.414 (7.35-7.45) 11/23/18 05:26 ABG pH 7.367 pH Units (7.350-7.450) 11/24/18 20:50 POC ABG pCO2 35.8 (35-45) 11/23/18 05:26 ABG pCO2 45.8 mm Hg 11/24/18 20:50 POC ABG pO2 93 (80-105) 11/23/18 05:26 ABG pO2 89.9 mm Hg (80.0-90.0) 11/24/18 20:50 POC ABG HCO3 22.9 (22-26 mml/L) 11/23/18 05:26 POC ABG Total CO2 24 (23-27mmol/L) 11/23/18 05:26 POC ABG O2 Sat 97 11/23/18 05:26 ABG O2 Saturation 97.1 % (95.0-99.0) 11/24/18 20:50 Abnormal lab findings: Abnormal Labs 11/13/18 11/13/18 11/13/18 03:30 14:00 14:00 WBC 3.8 L RBC 2.80 L Hgb 7.4 L Hct 22.9 L MCV 82 L MCH 27 L MCHC RDW 19.0 H Plt Count Lymph % (Auto) [place] % (Auto) Eos % (Auto) [place] # Seg Neutrophils % Seg Neuts % (Manual) 87.0 H Lymphocytes % (Manual) 5.0 L Eosinophils % (Manual) 7.0 H Seg Neutrophils # Lymphocytes # (Manual) 0.2 L POC ABG pH POC ABG pO2 ABG pO2 ABG Base Excess ABG Hemoglobin Oxyhemoglobin Sodium 147 H Potassium Chloride Carbon Dioxide 33 H BUN 50 H Creatinine Glucose 193 H POC Glucose Lactic Acid 3.70 H* Calcium 8.1 L Magnesium AST 154 H ALT 134 H Alkaline Phosphatase 586 H Total Creatine Kinase CK-MB (CK-2) Troponin T NT-Pro-B Natriuret Pep Albumin 1.2 L Triglycerides LDL Cholesterol Direct HDL Cholesterol Urine WBC (Auto) Crossmatch 11/13/18 11/13/18 11/13/18 14:00 14:44 14:49 WBC RBC Hgb Hct MCV MCH MCHC RDW Plt Count Lymph % (Auto) [place] % (Auto) Eos % (Auto) [place] # Seg Neutrophils % Seg Neuts % (Manual) Lymphocytes % (Manual) Eosinophils % (Manual) Seg Neutrophils # Lymphocytes # (Manual) POC ABG pH POC ABG pO2 ABG pO2 ABG Base Excess ABG Hemoglobin Oxyhemoglobin Sodium Potassium Chloride Carbon Dioxide BUN Creatinine Glucose POC Glucose Lactic Acid 2.60 H* Calcium Magnesium AST ALT Alkaline Phosphatase Total Creatine Kinase 510 H CK-MB (CK-2) 4.4 H Troponin T 0.348 H* NT-Pro-B Natriuret Pep 3679 H Albumin Triglycerides 284 H LDL Cholesterol Direct 4 L HDL Cholesterol 7 L Urine WBC (Auto) 36.0 H Crossmatch 11/13/18 11/13/18 11/13/18 14:49 14:49 14:52 WBC RBC Hgb Hct MCV MCH MCHC RDW Plt Count Lymph % (Auto) [place] % (Auto) Eos % (Auto) [place] # Seg Neutrophils % Seg Neuts % (Manual) Lymphocytes % (Manual) Eosinophils % (Manual) Seg Neutrophils # Lymphocytes # (Manual) POC ABG pH POC ABG pO2 ABG pO2 ABG Base Excess ABG Hemoglobin Oxyhemoglobin Sodium Potassium Chloride Carbon Dioxide BUN Creatinine Glucose POC Glucose 205 H Lactic Acid 3.90 H* Calcium Magnesium AST ALT Alkaline Phosphatase Total Creatine Kinase CK-MB (CK-2) Troponin T NT-Pro-B Natriuret Pep Albumin Triglycerides LDL Cholesterol Direct HDL Cholesterol Urine WBC (Auto) Crossmatch See Detail 11/13/18 11/13/18 11/13/18 16:58 17:13 19:46 WBC RBC Hgb Hct MCV MCH MCHC RDW Plt Count Lymph % (Auto) [place] % (Auto) Eos % (Auto) [place] # Seg Neutrophils % Seg Neuts % (Manual) Lymphocytes % (Manual) Eosinophils % (Manual) Seg Neutrophils # Lymphocytes # (Manual) POC ABG pH 7.573 H POC ABG pO2 ABG pO2 ABG Base Excess ABG Hemoglobin Oxyhemoglobin Sodium Potassium Chloride Carbon Dioxide BUN Creatinine Glucose POC Glucose Lactic Acid 3.90 H* 4.40 H* Calcium Magnesium AST ALT Alkaline Phosphatase Total Creatine Kinase CK-MB (CK-2) Troponin T NT-Pro-B Natriuret Pep Albumin Triglycerides LDL Cholesterol Direct HDL Cholesterol Urine WBC (Auto) Crossmatch 11/13/18 11/14/18 11/14/18 21:34 04:50 05:23 WBC RBC Hgb Hct MCV MCH MCHC RDW Plt Count Lymph % (Auto) [place] % (Auto) Eos % (Auto) [place] # Seg Neutrophils % Seg Neuts % (Manual) Lymphocytes % (Manual) Eosinophils % (Manual) Seg Neutrophils # Lymphocytes # (Manual) POC ABG pH POC ABG pO2 ABG pO2 120.8 H ABG Base Excess ABG Hemoglobin 10.9 L Oxyhemoglobin Sodium Potassium Chloride Carbon Dioxide BUN Creatinine Glucose POC Glucose 263 H Lactic Acid 4.50 H* Calcium Magnesium AST ALT Alkaline Phosphatase Total Creatine Kinase CK-MB (CK-2) Troponin T NT-Pro-B Natriuret Pep Albumin Triglycerides LDL Cholesterol Direct HDL Cholesterol Urine WBC (Auto) Crossmatch 11/14/18 11/14/18 11/14/18 05:46 08:02 12:42 WBC RBC Hgb Hct MCV MCH MCHC RDW Plt Count Lymph % (Auto) [place] % (Auto) Eos % (Auto) [place] # Seg Neutrophils % Seg Neuts % (Manual) Lymphocytes % (Manual) Eosinophils % (Manual) Seg Neutrophils # Lymphocytes # (Manual) POC ABG pH 7.463 H POC ABG pO2 136 H ABG pO2 ABG Base Excess ABG Hemoglobin Oxyhemoglobin Sodium Potassium Chloride Carbon Dioxide BUN Creatinine Glucose POC Glucose 213 H Lactic Acid 2.70 H* Calcium Magnesium AST ALT Alkaline Phosphatase Total Creatine Kinase CK-MB (CK-2) Troponin T NT-Pro-B Natriuret Pep Albumin Triglycerides LDL Cholesterol Direct HDL Cholesterol Urine WBC (Auto) Crossmatch 11/14/18 11/14/18 11/14/18 14:17 14:17 15:50 WBC 13.1 H 13.1 H RBC 2.36 L 2.36 L Hgb 6.1 L 6.1 L Hct 19.6 L* 19.4 L* MCV 83 L 82 L MCH 26 L 26 L MCHC 31 L 31 L RDW 19.4 H 19.3 H Plt Count Lymph % (Auto) [place] % (Auto) Eos % (Auto) [place] # Seg Neutrophils % Seg Neuts % (Manual) Lymphocytes % (Manual) Eosinophils % (Manual) Seg Neutrophils # Lymphocytes # (Manual) POC ABG pH POC ABG pO2 ABG pO2 ABG Base Excess ABG Hemoglobin Oxyhemoglobin Sodium 148 H Potassium Chloride 110.3 H Carbon Dioxide BUN 56 H Creatinine Glucose 203 H POC Glucose Lactic Acid Calcium 7.6 L Magnesium AST ALT Alkaline Phosphatase Total Creatine Kinase CK-MB (CK-2) Troponin T NT-Pro-B Natriuret Pep Albumin Triglycerides LDL Cholesterol Direct HDL Cholesterol Urine WBC (Auto) Crossmatch 11/14/18 11/14/18 11/15/18 18:19 23:52 05:10 WBC 16.2 H RBC 3.22 L Hgb 8.8 L Hct 26.8 L D MCV 83 L MCH 27 L MCHC RDW 16.8 H Plt Count Lymph % (Auto) [place] % (Auto) Eos % (Auto) [place] # Seg Neutrophils % Seg Neuts % (Manual) Lymphocytes % (Manual) Eosinophils % (Manual) Seg Neutrophils # Lymphocytes # (Manual) POC ABG pH POC ABG pO2 ABG pO2 ABG Base Excess ABG Hemoglobin Oxyhemoglobin Sodium Potassium Chloride Carbon Dioxide BUN Creatinine Glucose POC Glucose 213 H 242 H Lactic Acid Calcium Magnesium AST ALT Alkaline Phosphatase Total Creatine Kinase CK-MB (CK-2) Troponin T NT-Pro-B Natriuret Pep Albumin Triglycerides LDL Cholesterol Direct HDL Cholesterol Urine WBC (Auto) Crossmatch 11/15/18 11/15/18 11/15/18 05:10 05:36 11:15 WBC RBC Hgb Hct MCV MCH MCHC RDW Plt Count Lymph % (Auto) [place] % (Auto) Eos % (Auto) [place] # Seg Neutrophils % Seg Neuts % (Manual) Lymphocytes % (Manual) Eosinophils % (Manual) Seg Neutrophils # Lymphocytes # (Manual) POC ABG pH POC ABG pO2 ABG pO2 ABG Base Excess ABG Hemoglobin Oxyhemoglobin Sodium 148 H Potassium 3.5 L Chloride 112.8 H Carbon Dioxide BUN 51 H Creatinine Glucose 154 H POC Glucose 143 H 139 H Lactic Acid Calcium 7.8 L Magnesium AST ALT Alkaline Phosphatase Total Creatine Kinase CK-MB (CK-2) Troponin T NT-Pro-B Natriuret Pep Albumin Triglycerides LDL Cholesterol Direct HDL Cholesterol Urine WBC (Auto) Crossmatch 11/15/18 11/15/18 11/15/18 12:00 18:28 20:56 WBC RBC Hgb Hct MCV MCH MCHC RDW Plt Count Lymph % (Auto) [place] % (Auto) Eos % (Auto) [place] # Seg Neutrophils % Seg Neuts % (Manual) Lymphocytes % (Manual) Eosinophils % (Manual) Seg Neutrophils # Lymphocytes # (Manual) POC ABG pH POC ABG pO2 ABG pO2 ABG Base Excess ABG Hemoglobin Oxyhemoglobin Sodium 148 H Potassium 3.2 L Chloride 113.0 H Carbon Dioxide BUN 44 H Creatinine Glucose 144 H POC Glucose 159 H 150 H Lactic Acid Calcium 7.7 L Magnesium AST ALT Alkaline Phosphatase Total Creatine Kinase CK-MB (CK-2) Troponin T NT-Pro-B Natriuret Pep Albumin Triglycerides LDL Cholesterol Direct HDL Cholesterol Urine WBC (Auto) Crossmatch 11/15/18 11/16/18 11/16/18 23:32 03:40 03:45 WBC 16.1 H RBC 3.30 L Hgb 8.9 L Hct 27.9 L MCV MCH 27 L MCHC RDW 17.5 H Plt Count Lymph % (Auto) [place] % (Auto) Eos % (Auto) [place] # Seg Neutrophils % Seg Neuts % (Manual) Lymphocytes % (Manual) Eosinophils % (Manual) Seg Neutrophils # Lymphocytes # (Manual) POC ABG pH POC ABG pO2 ABG pO2 147.0 H ABG Base Excess ABG Hemoglobin 12.0 L Oxyhemoglobin Sodium Potassium Chloride Carbon Dioxide BUN Creatinine Glucose POC Glucose 131 H Lactic Acid Calcium Magnesium AST ALT Alkaline Phosphatase Total Creatine Kinase CK-MB (CK-2) Troponin T NT-Pro-B Natriuret Pep Albumin Triglycerides LDL Cholesterol Direct HDL Cholesterol Urine WBC (Auto) Crossmatch 11/16/18 11/16/18 11/16/18 03:45 05:15 15:14 WBC RBC Hgb Hct MCV MCH MCHC RDW Plt Count Lymph % (Auto) [place] % (Auto) Eos % (Auto) [place] # Seg Neutrophils % Seg Neuts % (Manual) Lymphocytes % (Manual) Eosinophils % (Manual) Seg Neutrophils # Lymphocytes # (Manual) POC ABG pH POC ABG pO2 ABG pO2 ABG Base Excess ABG Hemoglobin Oxyhemoglobin Sodium 149 H Potassium 3.5 L Chloride 116.2 H Carbon Dioxide 21 L BUN 41 H Creatinine Glucose 146 H POC Glucose 155 H 215 H Lactic Acid Calcium 7.7 L Magnesium AST ALT Alkaline Phosphatase Total Creatine Kinase CK-MB (CK-2) Troponin T NT-Pro-B Natriuret Pep Albumin Triglycerides LDL Cholesterol Direct HDL Cholesterol Urine WBC (Auto) Crossmatch 11/16/18 11/16/18 11/17/18 18:20 23:49 04:49 WBC 12.1 H RBC 3.34 L Hgb 9.0 L Hct 28.1 L MCV MCH 27 L MCHC RDW 17.5 H Plt Count Lymph % (Auto) [place] % (Auto) Eos % (Auto) [place] # Seg Neutrophils % Seg Neuts % (Manual) Lymphocytes % (Manual) Eosinophils % (Manual) Seg Neutrophils # Lymphocytes # (Manual) POC ABG pH POC ABG pO2 ABG pO2 ABG Base Excess ABG Hemoglobin Oxyhemoglobin Sodium Potassium Chloride Carbon Dioxide BUN Creatinine Glucose POC Glucose 230 H 189 H Lactic Acid Calcium Magnesium AST ALT Alkaline Phosphatase Total Creatine Kinase CK-MB (CK-2) Troponin T NT-Pro-B Natriuret Pep Albumin Triglycerides LDL Cholesterol Direct HDL Cholesterol Urine WBC (Auto) Crossmatch 11/17/18 11/17/18 11/17/18 04:49 05:45 14:16 WBC RBC Hgb Hct MCV MCH MCHC RDW Plt Count Lymph % (Auto) [place] % (Auto) Eos % (Auto) [place] # Seg Neutrophils % Seg Neuts % (Manual) Lymphocytes % (Manual) Eosinophils % (Manual) Seg Neutrophils # Lymphocytes # (Manual) POC ABG pH POC ABG pO2 ABG pO2 ABG Base Excess ABG Hemoglobin Oxyhemoglobin Sodium 150 H Potassium 3.2 L Chloride 118.9 H Carbon Dioxide 20 L BUN 38 H Creatinine 0.7 L Glucose 164 H POC Glucose 181 H 172 H Lactic Acid Calcium 7.7 L Magnesium AST ALT Alkaline Phosphatase Total Creatine Kinase CK-MB (CK-2) Troponin T NT-Pro-B Natriuret Pep Albumin Triglycerides LDL Cholesterol Direct HDL Cholesterol Urine WBC (Auto) Crossmatch 11/17/18 11/17/18 11/18/18 23:36 Unknown 04:10 WBC RBC Hgb Hct MCV MCH MCHC RDW Plt Count Lymph % (Auto) [place] % (Auto) Eos % (Auto) [place] # Seg Neutrophils % Seg Neuts % (Manual) Lymphocytes % (Manual) Eosinophils % (Manual) Seg Neutrophils # Lymphocytes # (Manual) POC ABG pH POC ABG pO2 ABG pO2 105.9 H 101.8 H ABG Base Excess -2.3 L -3.2 L ABG Hemoglobin 11.5 L 10.2 L Oxyhemoglobin Sodium Potassium Chloride Carbon Dioxide BUN Creatinine Glucose POC Glucose 214 H Lactic Acid Calcium Magnesium AST ALT Alkaline Phosphatase Total Creatine Kinase CK-MB (CK-2) Troponin T NT-Pro-B Natriuret Pep Albumin Triglycerides LDL Cholesterol Direct HDL Cholesterol Urine WBC (Auto) Crossmatch 11/18/18 11/18/18 11/18/18 04:37 04:37 05:36 WBC RBC 3.10 L Hgb 8.5 L Hct 26.8 L MCV MCH 27 L MCHC RDW 17.8 H Plt Count Lymph % (Auto) 12.8 L [place] % (Auto) 8.5 H Eos % (Auto) [place] # 0.9 H Seg Neutrophils % 75.8 H Seg Neuts % (Manual) Lymphocytes % (Manual) Eosinophils % (Manual) Seg Neutrophils # 8.0 H Lymphocytes # (Manual) POC ABG pH POC ABG pO2 ABG pO2 ABG Base Excess ABG Hemoglobin Oxyhemoglobin Sodium 148 H Potassium 3.3 L Chloride 118.3 H Carbon Dioxide 20 L BUN 32 H Creatinine 0.7 L Glucose 154 H POC Glucose 171 H Lactic Acid Calcium 7.4 L Magnesium AST ALT Alkaline Phosphatase Total Creatine Kinase CK-MB (CK-2) Troponin T NT-Pro-B Natriuret Pep Albumin Triglycerides LDL Cholesterol Direct HDL Cholesterol Urine WBC (Auto) Crossmatch 11/18/18 11/18/18 11/18/18 12:10 17:27 23:56 WBC RBC Hgb Hct MCV MCH MCHC RDW Plt Count Lymph % (Auto) [place] % (Auto) Eos % (Auto) [place] # Seg Neutrophils % Seg Neuts % (Manual) Lymphocytes % (Manual) Eosinophils % (Manual) Seg Neutrophils # Lymphocytes # (Manual) POC ABG pH POC ABG pO2 ABG pO2 ABG Base Excess ABG Hemoglobin Oxyhemoglobin Sodium Potassium Chloride Carbon Dioxide BUN Creatinine Glucose POC Glucose 244 H 239 H 241 H Lactic Acid Calcium Magnesium AST ALT Alkaline Phosphatase Total Creatine Kinase CK-MB (CK-2) Troponin T NT-Pro-B Natriuret Pep Albumin Triglycerides LDL Cholesterol Direct HDL Cholesterol Urine WBC (Auto) Crossmatch 11/19/18 11/19/18 11/19/18 03:45 04:27 06:37 WBC RBC Hgb Hct MCV MCH MCHC RDW Plt Count Lymph % (Auto) [place] % (Auto) Eos % (Auto) [place] # Seg Neutrophils % Seg Neuts % (Manual) Lymphocytes % (Manual) Eosinophils % (Manual) Seg Neutrophils # Lymphocytes # (Manual) POC ABG pH POC ABG pO2 ABG pO2 95.5 H ABG Base Excess -4.0 L ABG Hemoglobin 5.9 L Oxyhemoglobin Sodium 147 H Potassium Chloride 119.2 H Carbon Dioxide 20 L BUN 28 H Creatinine 0.6 L Glucose 181 H POC Glucose 220 H Lactic Acid Calcium 7.6 L Magnesium AST ALT Alkaline Phosphatase Total Creatine Kinase CK-MB (CK-2) Troponin T NT-Pro-B Natriuret Pep Albumin Triglycerides LDL Cholesterol Direct HDL Cholesterol Urine WBC (Auto) Crossmatch 11/19/18 11/19/18 11/19/18 06:41 11:27 17:31 WBC RBC 3.28 L Hgb 9.0 L Hct 28.2 L MCV MCH MCHC RDW 17.9 H Plt Count Lymph % (Auto) [place] % (Auto) 11.0 H Eos % (Auto) [place] # 1.1 H Seg Neutrophils % Seg Neuts % (Manual) Lymphocytes % (Manual) Eosinophils % (Manual) Seg Neutrophils # Lymphocytes # (Manual) POC ABG pH POC ABG pO2 ABG pO2 ABG Base Excess ABG Hemoglobin Oxyhemoglobin Sodium Potassium Chloride Carbon Dioxide BUN Creatinine Glucose POC Glucose 280 H 300 H Lactic Acid Calcium Magnesium AST ALT Alkaline Phosphatase Total Creatine Kinase CK-MB (CK-2) Troponin T NT-Pro-B Natriuret Pep Albumin Triglycerides LDL Cholesterol Direct HDL Cholesterol Urine WBC (Auto) Crossmatch 11/19/18 11/20/18 11/20/18 23:30 03:03 03:03 WBC RBC 3.04 L Hgb 8.4 L Hct 26.1 L MCV MCH MCHC RDW 18.1 H Plt Count Lymph % (Auto) [place] % (Auto) 11.0 H Eos % (Auto) [place] # 0.9 H Seg Neutrophils % Seg Neuts % (Manual) Lymphocytes % (Manual) Eosinophils % (Manual) Seg Neutrophils # Lymphocytes # (Manual) POC ABG pH POC ABG pO2 ABG pO2 ABG Base Excess ABG Hemoglobin Oxyhemoglobin Sodium 148 H Potassium Chloride 117.4 H Carbon Dioxide BUN 24 H Creatinine 0.6 L Glucose 238 H POC Glucose 251 H Lactic Acid Calcium 7.9 L Magnesium AST ALT Alkaline Phosphatase Total Creatine Kinase CK-MB (CK-2) Troponin T NT-Pro-B Natriuret Pep Albumin Triglycerides LDL Cholesterol Direct HDL Cholesterol Urine WBC (Auto) Crossmatch 11/20/18 11/20/18 11/20/18 04:20 05:15 12:21 WBC RBC Hgb Hct MCV MCH MCHC RDW Plt Count Lymph % (Auto) [place] % (Auto) Eos % (Auto) [place] # Seg Neutrophils % Seg Neuts % (Manual) Lymphocytes % (Manual) Eosinophils % (Manual) Seg Neutrophils # Lymphocytes # (Manual) POC ABG pH POC ABG pO2 ABG pO2 91.3 H ABG Base Excess -2.6 L ABG Hemoglobin 8.3 L Oxyhemoglobin Sodium Potassium Chloride Carbon Dioxide BUN Creatinine Glucose POC Glucose 213 H 318 H Lactic Acid Calcium Magnesium AST ALT Alkaline Phosphatase Total Creatine Kinase CK-MB (CK-2) Troponin T NT-Pro-B Natriuret Pep Albumin Triglycerides LDL Cholesterol Direct HDL Cholesterol Urine WBC (Auto) Crossmatch 11/20/18 11/20/18 11/20/18 18:01 20:50 23:36 WBC RBC Hgb Hct MCV MCH MCHC RDW Plt Count Lymph % (Auto) [place] % (Auto) Eos % (Auto) [place] # Seg Neutrophils % Seg Neuts % (Manual) Lymphocytes % (Manual) Eosinophils % (Manual) Seg Neutrophils # Lymphocytes # (Manual) POC ABG pH POC ABG pO2 ABG pO2 90.8 H ABG Base Excess -2.1 L ABG Hemoglobin 13.4 L Oxyhemoglobin 94.9 L Sodium Potassium Chloride Carbon Dioxide BUN Creatinine Glucose POC Glucose 301 H 290 H Lactic Acid Calcium Magnesium AST ALT Alkaline Phosphatase Total Creatine Kinase CK-MB (CK-2) Troponin T NT-Pro-B Natriuret Pep Albumin Triglycerides LDL Cholesterol Direct HDL Cholesterol Urine WBC (Auto) Crossmatch 11/21/18 11/21/18 11/21/18 03:09 03:09 05:10 WBC RBC 3.05 L Hgb 8.5 L Hct 26.1 L MCV MCH MCHC RDW 18.7 H Plt Count Lymph % (Auto) [place] % (Auto) 12.2 H Eos % (Auto) [place] # 0.9 H Seg Neutrophils % Seg Neuts % (Manual) Lymphocytes % (Manual) Eosinophils % (Manual) Seg Neutrophils # Lymphocytes # (Manual) POC ABG pH POC ABG pO2 ABG pO2 ABG Base Excess ABG Hemoglobin Oxyhemoglobin Sodium 150 H Potassium 3.5 L Chloride 118.5 H Carbon Dioxide BUN 22 H Creatinine 0.6 L Glucose 279 H POC Glucose 307 H Lactic Acid Calcium 7.7 L Magnesium AST ALT Alkaline Phosphatase Total Creatine Kinase CK-MB (CK-2) Troponin T NT-Pro-B Natriuret Pep Albumin Triglycerides LDL Cholesterol Direct HDL Cholesterol Urine WBC (Auto) Crossmatch 11/21/18 11/21/18 11/21/18 11:24 17:23 23:20 WBC RBC Hgb Hct MCV MCH MCHC RDW Plt Count Lymph % (Auto) [place] % (Auto) Eos % (Auto) [place] # Seg Neutrophils % Seg Neuts % (Manual) Lymphocytes % (Manual) Eosinophils % (Manual) Seg Neutrophils # Lymphocytes # (Manual) POC ABG pH POC ABG pO2 ABG pO2 ABG Base Excess ABG Hemoglobin Oxyhemoglobin Sodium Potassium Chloride Carbon Dioxide BUN Creatinine Glucose POC Glucose 324 H 288 H 254 H Lactic Acid Calcium Magnesium AST ALT Alkaline Phosphatase Total Creatine Kinase CK-MB (CK-2) Troponin T NT-Pro-B Natriuret Pep Albumin Triglycerides LDL Cholesterol Direct HDL Cholesterol Urine WBC (Auto) Crossmatch 11/22/18 11/22/18 11/22/18 03:50 05:43 06:10 WBC RBC 2.93 L Hgb 8.1 L Hct 25.2 L MCV MCH MCHC RDW 18.6 H Plt Count Lymph % (Auto) [place] % (Auto) 10.9 H Eos % (Auto) 4.4 H [place] # 0.9 H Seg Neutrophils % Seg Neuts % (Manual) Lymphocytes % (Manual) Eosinophils % (Manual) Seg Neutrophils # Lymphocytes # (Manual) POC ABG pH POC ABG pO2 ABG pO2 94.6 H ABG Base Excess ABG Hemoglobin 6.5 L Oxyhemoglobin Sodium Potassium Chloride Carbon Dioxide BUN Creatinine Glucose POC Glucose 227 H Lactic Acid Calcium Magnesium AST ALT Alkaline Phosphatase Total Creatine Kinase CK-MB (CK-2) Troponin T NT-Pro-B Natriuret Pep Albumin Triglycerides LDL Cholesterol Direct HDL Cholesterol Urine WBC (Auto) Crossmatch 11/22/18 11/22/18 11/22/18 06:10 11:35 17:07 WBC RBC Hgb Hct MCV MCH MCHC RDW Plt Count Lymph % (Auto) [place] % (Auto) Eos % (Auto) [place] # Seg Neutrophils % Seg Neuts % (Manual) Lymphocytes % (Manual) Eosinophils % (Manual) Seg Neutrophils # Lymphocytes # (Manual) POC ABG pH POC ABG pO2 ABG pO2 ABG Base Excess ABG Hemoglobin Oxyhemoglobin Sodium 146 H Potassium 3.3 L Chloride 114.8 H Carbon Dioxide BUN 21 H Creatinine 0.5 L Glucose 214 H POC Glucose 262 H 205 H Lactic Acid Calcium 7.7 L Magnesium AST ALT Alkaline Phosphatase Total Creatine Kinase CK-MB (CK-2) Troponin T NT-Pro-B Natriuret Pep Albumin Triglycerides LDL Cholesterol Direct HDL Cholesterol Urine WBC (Auto) Crossmatch 11/22/18 11/23/18 11/23/18 23:23 05:35 06:48 WBC RBC 2.90 L Hgb 8.0 L Hct 25.1 L MCV MCH MCHC RDW 18.7 H Plt Count Lymph % (Auto) [place] % (Auto) 8.7 H Eos % (Auto) 4.5 H [place] # Seg Neutrophils % Seg Neuts % (Manual) Lymphocytes % (Manual) Eosinophils % (Manual) Seg Neutrophils # Lymphocytes # (Manual) POC ABG pH POC ABG pO2 ABG pO2 ABG Base Excess ABG Hemoglobin Oxyhemoglobin Sodium Potassium Chloride Carbon Dioxide BUN Creatinine Glucose POC Glucose 165 H 140 H Lactic Acid Calcium Magnesium AST ALT Alkaline Phosphatase Total Creatine Kinase CK-MB (CK-2) Troponin T NT-Pro-B Natriuret Pep Albumin Triglycerides LDL Cholesterol Direct HDL Cholesterol Urine WBC (Auto) Crossmatch 11/23/18 11/23/18 11/23/18 06:48 12:00 17:16 WBC RBC Hgb Hct MCV MCH MCHC RDW Plt Count Lymph % (Auto) [place] % (Auto) Eos % (Auto) [place] # Seg Neutrophils % Seg Neuts % (Manual) Lymphocytes % (Manual) Eosinophils % (Manual) Seg Neutrophils # Lymphocytes # (Manual) POC ABG pH POC ABG pO2 ABG pO2 ABG Base Excess ABG Hemoglobin Oxyhemoglobin Sodium 146 H Potassium Chloride 115.4 H Carbon Dioxide BUN Creatinine 0.4 L Glucose 144 H POC Glucose 199 H 207 H Lactic Acid Calcium 7.8 L Magnesium AST ALT Alkaline Phosphatase Total Creatine Kinase CK-MB (CK-2) Troponin T NT-Pro-B Natriuret Pep Albumin Triglycerides LDL Cholesterol Direct HDL Cholesterol Urine WBC (Auto) Crossmatch 11/23/18 11/23/18 11/24/18 22:23 23:57 05:38 WBC RBC Hgb Hct MCV MCH MCHC RDW Plt Count Lymph % (Auto) [place] % (Auto) Eos % (Auto) [place] # Seg Neutrophils % Seg Neuts % (Manual) Lymphocytes % (Manual) Eosinophils % (Manual) Seg Neutrophils # Lymphocytes # (Manual) POC ABG pH POC ABG pO2 ABG pO2 ABG Base Excess ABG Hemoglobin Oxyhemoglobin Sodium Potassium Chloride Carbon Dioxide BUN Creatinine Glucose POC Glucose 186 H 172 H 137 H Lactic Acid Calcium Magnesium AST ALT Alkaline Phosphatase Total Creatine Kinase CK-MB (CK-2) Troponin T NT-Pro-B Natriuret Pep Albumin Triglycerides LDL Cholesterol Direct HDL Cholesterol Urine WBC (Auto) Crossmatch 11/24/18 11/24/18 11/24/18 12:23 17:53 20:50 WBC RBC Hgb Hct MCV MCH MCHC RDW Plt Count Lymph % (Auto) [place] % (Auto) Eos % (Auto) [place] # Seg Neutrophils % Seg Neuts % (Manual) Lymphocytes % (Manual) Eosinophils % (Manual) Seg Neutrophils # Lymphocytes # (Manual) POC ABG pH POC ABG pO2 ABG pO2 ABG Base Excess ABG Hemoglobin 8.2 L Oxyhemoglobin 94.8 L Sodium Potassium Chloride Carbon Dioxide BUN Creatinine Glucose POC Glucose 168 H 170 H Lactic Acid Calcium Magnesium AST ALT Alkaline Phosphatase Total Creatine Kinase CK-MB (CK-2) Troponin T NT-Pro-B Natriuret Pep Albumin Triglycerides LDL Cholesterol Direct HDL Cholesterol Urine WBC (Auto) Crossmatch 11/24/18 11/24/18 11/25/18 21:11 23:46 04:24 WBC RBC 2.78 L Hgb 7.7 L Hct 23.7 L MCV MCH MCHC RDW 18.7 H Plt Count Lymph % (Auto) [place] % (Auto) Eos % (Auto) [place] # Seg Neutrophils % Seg Neuts % (Manual) Lymphocytes % (Manual) Eosinophils % (Manual) Seg Neutrophils # Lymphocytes # (Manual) POC ABG pH POC ABG pO2 ABG pO2 ABG Base Excess ABG Hemoglobin Oxyhemoglobin Sodium Potassium Chloride Carbon Dioxide BUN Creatinine Glucose POC Glucose 190 H 169 H Lactic Acid Calcium Magnesium AST ALT Alkaline Phosphatase Total Creatine Kinase CK-MB (CK-2) Troponin T NT-Pro-B Natriuret Pep Albumin Triglycerides LDL Cholesterol Direct HDL Cholesterol Urine WBC (Auto) Crossmatch 11/25/18 11/25/18 11/25/18 04:24 04:24 05:14 WBC RBC Hgb Hct MCV MCH MCHC RDW Plt Count Lymph % (Auto) [place] % (Auto) Eos % (Auto) [place] # Seg Neutrophils % Seg Neuts % (Manual) Lymphocytes % (Manual) Eosinophils % (Manual) Seg Neutrophils # Lymphocytes # (Manual) POC ABG pH POC ABG pO2 ABG pO2 ABG Base Excess ABG Hemoglobin Oxyhemoglobin Sodium Potassium 3.5 L Chloride 108.1 H Carbon Dioxide BUN Creatinine 0.4 L Glucose 119 H POC Glucose 138 H Lactic Acid Calcium 7.9 L Magnesium 1.50 L AST ALT Alkaline Phosphatase Total Creatine Kinase CK-MB (CK-2) Troponin T NT-Pro-B Natriuret Pep Albumin Triglycerides LDL Cholesterol Direct HDL Cholesterol Urine WBC (Auto) Crossmatch 11/25/18 11/25/18 11/25/18 11:46 17:45 23:39 WBC RBC Hgb Hct MCV MCH MCHC RDW Plt Count Lymph % (Auto) [place] % (Auto) Eos % (Auto) [place] # Seg Neutrophils % Seg Neuts % (Manual) Lymphocytes % (Manual) Eosinophils % (Manual) Seg Neutrophils # Lymphocytes # (Manual) POC ABG pH POC ABG pO2 ABG pO2 ABG Base Excess ABG Hemoglobin Oxyhemoglobin Sodium Potassium Chloride Carbon Dioxide BUN Creatinine Glucose POC Glucose 160 H 107 H 118 H Lactic Acid Calcium Magnesium AST ALT Alkaline Phosphatase Total Creatine Kinase CK-MB (CK-2) Troponin T NT-Pro-B Natriuret Pep Albumin Triglycerides LDL Cholesterol Direct HDL Cholesterol Urine WBC (Auto) Crossmatch 11/26/18 11/26/18 11/26/18 05:43 05:50 05:50 WBC RBC 2.91 L Hgb 8.1 L Hct 25.1 L MCV MCH MCHC RDW 19.4 H Plt Count 127 L Lymph % (Auto) [place] % (Auto) Eos % (Auto) [place] # Seg Neutrophils % Seg Neuts % (Manual) Lymphocytes % (Manual) Eosinophils % (Manual) Seg Neutrophils # Lymphocytes # (Manual) POC ABG pH POC ABG pO2 ABG pO2 ABG Base Excess ABG Hemoglobin Oxyhemoglobin Sodium Potassium Chloride 109.7 H Carbon Dioxide BUN Creatinine 0.4 L Glucose 118 H POC Glucose 142 H Lactic Acid Calcium 8.0 L Magnesium AST ALT Alkaline Phosphatase Total Creatine Kinase CK-MB (CK-2) Troponin T NT-Pro-B Natriuret Pep Albumin Triglycerides LDL Cholesterol Direct HDL Cholesterol Urine WBC (Auto) Crossmatch 11/26/18 11/27/18 11/27/18 12:26 05:35 05:35 WBC RBC 2.99 L Hgb 8.3 L Hct 25.3 L MCV MCH MCHC RDW 18.4 H Plt Count 134 L Lymph % (Auto) [place] % (Auto) Eos % (Auto) [place] # Seg Neutrophils % Seg Neuts % (Manual) Lymphocytes % (Manual) Eosinophils % (Manual) Seg Neutrophils # Lymphocytes # (Manual) POC ABG pH POC ABG pO2 ABG pO2 ABG Base Excess ABG Hemoglobin Oxyhemoglobin Sodium Potassium Chloride Carbon Dioxide BUN Creatinine 0.5 L Glucose 110 H POC Glucose 129 H Lactic Acid Calcium 8.0 L Magnesium AST ALT Alkaline Phosphatase Total Creatine Kinase CK-MB (CK-2) Troponin T NT-Pro-B Natriuret Pep Albumin Triglycerides LDL Cholesterol Direct HDL Cholesterol Urine WBC (Auto) Crossmatch 11/27/18 11/27/18 11/27/18 12:30 17:26 22:38 WBC RBC Hgb Hct MCV MCH MCHC RDW Plt Count Lymph % (Auto) [place] % (Auto) Eos % (Auto) [place] # Seg Neutrophils % Seg Neuts % (Manual) Lymphocytes % (Manual) Eosinophils % (Manual) Seg Neutrophils # Lymphocytes # (Manual) POC ABG pH POC ABG pO2 ABG pO2 ABG Base Excess ABG Hemoglobin Oxyhemoglobin Sodium Potassium Chloride Carbon Dioxide BUN Creatinine Glucose POC Glucose 155 H 196 H 208 H Lactic Acid Calcium Magnesium AST ALT Alkaline Phosphatase Total Creatine Kinase CK-MB (CK-2) Troponin T NT-Pro-B Natriuret Pep Albumin Triglycerides LDL Cholesterol Direct HDL Cholesterol Urine WBC (Auto) Crossmatch 11/28/18 11/28/18 11/28/18 04:28 04:28 06:23 WBC RBC 2.72 L Hgb 7.7 L Hct 22.8 L MCV MCH MCHC RDW 18.7 H Plt Count 125 L Lymph % (Auto) [place] % (Auto) Eos % (Auto) [place] # Seg Neutrophils % Seg Neuts % (Manual) Lymphocytes % (Manual) Eosinophils % (Manual) Seg Neutrophils # Lymphocytes # (Manual) POC ABG pH POC ABG pO2 ABG pO2 ABG Base Excess ABG Hemoglobin Oxyhemoglobin Sodium Potassium Chloride Carbon Dioxide BUN 23 H Creatinine 0.4 L Glucose 112 H POC Glucose 125 H Lactic Acid Calcium 8.0 L Magnesium AST ALT Alkaline Phosphatase Total Creatine Kinase CK-MB (CK-2) Troponin T NT-Pro-B Natriuret Pep Albumin Triglycerides LDL Cholesterol Direct HDL Cholesterol Urine WBC (Auto) Crossmatch 11/28/18 12:07 WBC RBC Hgb Hct MCV MCH MCHC RDW Plt Count Lymph % (Auto) [place] % (Auto) Eos % (Auto) [place] # Seg Neutrophils % Seg Neuts % (Manual) Lymphocytes % (Manual) Eosinophils % (Manual) Seg Neutrophils # Lymphocytes # (Manual) POC ABG pH POC ABG pO2 ABG pO2 ABG Base Excess ABG Hemoglobin Oxyhemoglobin Sodium Potassium Chloride Carbon Dioxide BUN Creatinine Glucose POC Glucose 138 H Lactic Acid Calcium Magnesium AST ALT Alkaline Phosphatase Total Creatine Kinase CK-MB (CK-2) Troponin T NT-Pro-B Natriuret Pep Albumin Triglycerides LDL Cholesterol Direct HDL Cholesterol Urine WBC (Auto) Crossmatch Allied health notes reviewed: nursing
[2018-11-28] MEDS: TRANSDERM-SCOP TD SCH (14:21)
[2018-11-29] MEDS: HumaLOG SUB-Q SCH ×3 (00:49→20:20)
[2018-11-29] MEDS: LANTUS SUB-Q SCH ×2 (00:50→23:25)
[2018-11-29] MEDS: ROBINUL PO SCH ×3 (05:39→22:15)
--- NOTE | 2018-11-29 08:17 | Progress Note ---
Assessment and Plan Assessment and plan: Acute on chronic resp failure Cont. tracheostomy care, secretion control and airway mangement Pulmonology following Off ventilator Severe Sepsis with septic shock due to VRE off vasopressors Blood cultures Enterococcus Faecium 4 of 4 bottles ID Physician following Continue antibiotics per ID recommendations, Zyvox 600 mg twice a day for total of 14 day Sacral decub ulcer. Appreciate general surgery recommendations. considering surgery Diabetes mellitus type 2 Fingerstick q4h Anemia s/p 2 Units PRBC stool occult blood neg Hypertension by history. Monitor History of chronic hypoxic encephalopathy Hyperlipidemia Hypernatremia Hypokalemia Replaced Hypomagnesemia Resolved Full code status Poor prognosis. I had a long discussion with the who wants to continue full supportive and aggressive care. Surgery also had a discussion with the with regards to debridement of his wound. tells me she has not decided on surgery yet. History Interval history: Still only minimally responsive Transferred to [facility] Hypothermia Hospitalist Physical - Physical exam Narrative exam: Gen: Not in acute distress, lying in bed, ill looking HEENT: Normocephalic, atraumatic, tracheostomy to t-piece Neck: supple, no JVD,trach Heart: S1 and S2 reg, no murmurs, rubs or gallop Lungs: Clear, no crackles, no rhonchi Abd: soft, non tender, non distended, normal BS, PEG tube Ext: No edema, no clubbing, no cyanosis Neuro: Minimal responsive, Does not follow commands Sacral:sacral decub ulcer - Constitutional Vitals: Temp Pulse Resp BP Pulse Ox 97.8 F 74 14 129/78 100 11/29/18 03:26 11/29/18 04:00 11/29/18 04:00 11/29/18 03:00 11/29/18 06:53 General appearance: Present: no acute distress, obese Results - Labs CBC & Chem 7: 11/28/18 04:28 11/28/18 04:28 Labs: Laboratory Last Values WBC 7.3 K/mm3 (4.5-11.0) 11/28/18 04:28 RBC 2.72 M/mm3 (3.65-5.03) L 11/28/18 04:28 Hgb 7.7 gm/dl (11.8-15.2) L 11/28/18 04:28 Hct 22.8 % (35.5-45.6) L 11/28/18 04:28 MCV 84 fl (84-94) 11/28/18 04:28 MCH 28 pg (28-32) 11/28/18 04:28 MCHC 34 % (32-34) 11/28/18 04:28 RDW 18.7 % (13.2-15.2) H 11/28/18 04:28 Plt Count 125 K/mm3 (140-440) L 11/28/18 04:28 Lymph % (Auto) 22.4 % (13.4-35.0) 11/23/18 06:48 [place] % (Auto) 8.7 % (0.0-7.3) H 11/23/18 06:48 Eos % (Auto) 4.5 % (0.0-4.3) H 11/23/18 06:48 Baso % (Auto) 0.6 % (0.0-1.8) 11/23/18 06:48 Lymph # 1.7 K/mm3 (1.2-5.4) 11/23/18 06:48 [place] # 0.7 K/mm3 (0.0-0.8) 11/23/18 06:48 Eos # 0.3 K/mm3 (0.0-0.4) 11/23/18 06:48 Baso # 0.0 K/mm3 (0.0-0.1) 11/23/18 06:48 Add Manual Diff Complete 11/13/18 14:00 Total Counted 100 11/13/18 14:00 Seg Neutrophils % 63.8 % (40.0-70.0) 11/23/18 06:48 Seg Neuts % (Manual) 87.0 % (40.0-70.0) H 11/13/18 14:00 0 % 11/13/18 14:00 5.0 % (13.4-35.0) L 11/13/18 14:00 Reactive Lymphs % (Man) 0 % 11/13/18 14:00 1.0 % (0.0-7.3) 11/13/18 14:00 7.0 % (0.0-4.3) H 11/13/18 14:00 0 % (0.0-1.8) 11/13/18 14:00 0 % 11/13/18 14:00 0 % 11/13/18 14:00 0 % 11/13/18 14:00 0 % 11/13/18 14:00 Nucleated RBC % Not Reportable 11/13/18 14:00 Seg Neutrophils # 5.0 K/mm3 (1.8-7.7) 11/23/18 06:48 Seg Neutrophils # Man 3.3 K/mm3 (1.8-7.7) 11/13/18 14:00 Band Neutrophils # 0.0 K/mm3 11/13/18 14:00 0.2 K/mm3 (1.2-5.4) L 11/13/18 14:00 Abs React Lymphs (Man) 0.0 K/mm3 11/13/18 14:00 0.0 K/mm3 (0.0-0.8) 11/13/18 14:00 0.3 K/mm3 (0.0-0.4) 11/13/18 14:00 0.0 K/mm3 (0.0-0.1) 11/13/18 14:00 0.0 K/mm3 11/13/18 14:00 0.0 K/mm3 11/13/18 14:00 0.0 K/mm3 11/13/18 14:00 Blast Cells # 0.0 K/mm3 11/13/18 14:00 WBC Morphology Not Reportable 11/13/18 14:00 Hypersegmented Neuts Not Reportable 11/13/18 14:00 Hyposegmented Neuts Not Reportable 11/13/18 14:00 Hypogranular Neuts Not Reportable 11/13/18 14:00 Not Reportable 11/13/18 14:00 Not Reportable 11/13/18 14:00 Not Reportable 11/13/18 14:00 Not Reportable 11/13/18 14:00 Not Reportable 11/13/18 14:00 Not Reportable 11/13/18 14:00 Consistent w auto 11/13/18 14:00 Not Reportable 11/13/18 14:00 Plt Clumps, EDTA Not Reportable 11/13/18 14:00 Not Reportable 11/13/18 14:00 Not Reportable 11/13/18 14:00 Not Reportable 11/13/18 14:00 Plt Morphology Comment Not Reportable 11/13/18 14:00 RBC Morphology Not Reportable 11/13/18 14:00 Dimorphic RBCs Not Reportable 11/13/18 14:00 Few 11/13/18 14:00 Not Reportable 11/13/18 14:00 Few 11/13/18 14:00 1+ 11/13/18 14:00 Not Reportable 11/13/18 14:00 Not Reportable 11/13/18 14:00 Few 11/13/18 14:00 Not Reportable 11/13/18 14:00 Not Reportable 11/13/18 14:00 Not Reportable 11/13/18 14:00 Not Reportable 11/13/18 14:00 Not Reportable 11/13/18 14:00 Not Reportable 11/13/18 14:00 Not Reportable 11/13/18 14:00 Not Reportable 11/13/18 14:00 Not Reportable 11/13/18 14:00 Not Reportable 11/13/18 14:00 Not Reportable 11/13/18 14:00 Not Reportable 11/13/18 14:00 Acanthocytes (Spur) Not Reportable 11/13/18 14:00 Rouleaux Not Reportable 11/13/18 14:00 Not Reportable 11/13/18 14:00 Not Reportable 11/13/18 14:00 Not Reportable 11/13/18 14:00 Not Reportable 11/13/18 14:00 Hem Pathologist Commnt No 11/13/18 14:00 POC ABG pH 7.414 (7.35-7.45) 11/23/18 05:26 ABG pH 7.367 pH Units (7.350-7.450) 11/24/18 20:50 POC ABG pCO2 35.8 (35-45) 11/23/18 05:26 ABG pCO2 45.8 mm Hg 11/24/18 20:50 POC ABG pO2 93 (80-105) 11/23/18 05:26 ABG pO2 89.9 mm Hg (80.0-90.0) 11/24/18 20:50 POC ABG HCO3 22.9 (22-26 mml/L) 11/23/18 05:26 ABG HCO3 25.7 mmol/L (20.0-26.0) 11/24/18 20:50 POC ABG Total CO2 24 (23-27mmol/L) 11/23/18 05:26 POC ABG O2 Sat 97 11/23/18 05:26 ABG O2 Saturation 97.1 % (95.0-99.0) 11/24/18 20:50 ABG O2 Content 6.4 (0.0-44) 11/24/18 20:50 POC ABG Base Excess -2 ((-2) - (+3)mmol/L) 11/23/18 05:26 ABG Base Excess 0.4 mmol/L (-2.0-3.0) 11/24/18 20:50 ABG Hemoglobin 8.2 gm/dl (14.0-18.0) L 11/24/18 20:50 ABG Carboxyhemoglobin 1.8 % (0.0-5.0) 11/24/18 20:50 ABG Methemoglobin 0.5 % (0.0-1.5) 11/24/18 20:50 94.8 % (95.0-99.0) L 11/24/18 20:50 28 % 11/24/18 20:50 Sodium 143 mmol/L (137-145) 11/28/18 04:28 Potassium 4.0 mmol/L (3.6-5.0) 11/28/18 04:28 Chloride 104.7 mmol/L (98-107) 11/28/18 04:28 Carbon Dioxide 29 mmol/L (22-30) 11/28/18 04:28 13 mmol/L 11/28/18 04:28 BUN 23 mg/dL (9-20) H 11/28/18 04:28 0.4 mg/dL (0.8-1.5) L 11/28/18 04:28 Estimated GFR > 60 ml/min 11/28/18 04:28 58 % 11/28/18 04:28 Glucose 112 mg/dL (75-100) H 11/28/18 04:28 POC Glucose 173 (70-105) H 11/29/18 05:33 Lactic Acid 1.60 mmol/L (0.7-2.0) 11/14/18 12:50 Calcium 8.0 mg/dL (8.4-10.2) L 11/28/18 04:28 Magnesium 2.00 mg/dL (1.7-2.3) 11/26/18 05:50 0.70 mg/dL (0.1-1.2) 11/13/18 14:00 AST 154 units/L (5-40) H 11/13/18 14:00 ALT 134 units/L (7-56) H 11/13/18 14:00 586 units/L (35-129) H 11/13/18 14:00 510 units/L (55-170) H 11/13/18 14:49 CK-MB (CK-2) 4.4 ng/mL (0.0-4.0) H 11/13/18 14:49 CK-MB (CK-2) Rel Index 0.8 (0-4) 11/13/18 14:49 0.348 ng/mL (0.00-0.029) H* 11/13/18 14:49 NT-Pro-B Natriuret Pep 3679 pg/mL (0-900) H 11/13/18 14:49 6.8 g/dL (6.3-8.2) 11/13/18 14:00 1.2 g/dL (3.9-5) L 11/13/18 14:00 0.2 % 11/13/18 14:00 Triglycerides 284 mg/dL (2-149) H 11/13/18 14:49 Cholesterol 56 mg/dL (50-199) 11/13/18 14:49 4 mg/dL (50-130) L 11/13/18 14:49 7 mg/dL (40-59) L 11/13/18 14:49 8.00 % 11/13/18 14:49 Yellow (Yellow) 11/13/18 14:44 Slightly-cloudy (Clear) 11/13/18 14:44 6.0 (5.0-7.0) 11/13/18 14:44 Ur Specific [place] 1.017 (1.003-1.030) 11/13/18 14:44 30 mg/dl mg/dL (Negative) 11/13/18 14:44 Neg mg/dL (Negative) 11/13/18 14:44 Neg mg/dL (Negative) 11/13/18 14:44 Neg (Negative) 11/13/18 14:44 Neg (Negative) 11/13/18 14:44 Neg (Negative) 11/13/18 14:44 4.0 mg/dL (<2.0) 11/13/18 14:44 Ur Leukocyte Esterase Mod (Negative) 11/13/18 14:44 36.0 /HPF (0.0-6.0) H 11/13/18 14:44 21.0 /HPF (0.0-6.0) 11/13/18 14:44 1+ /HPF (Negative) 11/13/18 14:44 Few /HPF 11/13/18 14:44 3+ /HPF 11/13/18 14:44 Hepatitis A IgM Ab Non-reactive (NonReactive) 11/14/18 02:00 Hep Bs Antigen Non-reactive (Negative) 11/14/18 02:00 Hep B Core IgM Ab Non-reactive (NonReactive) 11/14/18 02:00 Non-reactive (NonReactive) 11/14/18 02:00 HIV 1&2 Antibody Rapid Non react (Non React) 11/14/18 02:00 Non react (Non React) 11/14/18 02:00 Blood Type O POSITIVE 11/13/18 14:49 Antibody Screen Negative 11/13/18 14:49 Crossmatch See Detail 11/13/18 14:49 Active Medications - Current Medications Current Medications: Generic Name Dose Route Start Last Admin Trade Name Freq PRN Reason Stop Dose Admin Albuterol 2.5 mg 11/19/18 17:21 Proventil IH Q6HRT PRN Shortness Of Breath Amlodipine Besylate 5 mg 11/20/18 13:00 11/28/18 09:49 Norvasc PO 5 mg QDAY LENCHO Administration Lipase/Protease/Amylase 1 each 11/14/18 14:[address] 10,500 Unit FEEDTUBE PRN PRN For Clogged Feeding Tube Glycopyrrolate 2 mg 11/25/18 14:00 11/29/18 05:39 Robinul PO 2 mg Q8HR LENCHO Administration Heparin Sodium (Porcine) 5,000 unit 11/14/18 03:30 11/28/18 21:24 Heparin SUB-Q 5,000 unit Q12HR LENCHO Administration Hydralazine HCl 10 mg 11/20/18 12:30 11/20/18 12:26 Apresoline IV 10 mg Q4H PRN Administration Blood Pressure Hydrophilic Ointment 1 applic 11/24/18 08:23 Vaseline Lip Therapy TP Q2HR PRN Dry Lips Insulin Glargine 20 units 11/23/18 22:00 11/29/18 00:50 Lantus SUB-Q 20 units QHS LENCHO Administration Insulin Human Lispro 0 unit 11/14/18 06:00 11/29/18 05:39 Humalog SUB-Q 2 unit Q6HR LENCHO Administration Protocol Lansoprazole 30 mg 11/16/18 10:00 11/28/18 09:48 Prevacid Solutab FEEDTUBE 30 mg QDAY LENCHO Administration Linezolid 600 mg 11/19/18 10:00 11/28/18 21:24 Zyvox PO 11/29/18 23:59 600 mg BID LENCHO Administration Multi-Ingred Cream/Lotion/Oil/Oint 1 applic 11/24/18 08:23 11/24/18 21:28 Artificial Tears Ophth Oint OU 1 applic Q4HR PRN Administration Dry Eye(s) Scopolamine 1 each 11/19/18 15:00 11/28/18 14:21 Transderm-Scop TD 1 each Q3D LENCHO Administration Simple Syrup 15 ml 11/14/18 14:20 Simple Syrup FEEDTUBE PRN PRN Hypoglycemia Simple Syrup 30 ml 11/14/18 14:20 Simple Syrup FEEDTUBE PRN PRN Hypoglycemia Sodium Bicarbonate 325 mg 11/14/18 14:20 Sodium Bicarbonate FEEDTUBE PRN PRN For Clogged Feeding Tube Sodium Hypochlorite 1 applic 11/16/18 13:00 11/28/18 21:26 Dakin's Half Strength TP 1 applicatio BID LENCHO Administration Nutrition/Malnutrition Assess - Dietary Evaluation Nutrition/Malnutrition Findings: Nutrition Notes Start: 11/14/18 10:33 Freq: Status: Active Protocol: Document 11/24/18 10:39 LM (Rec: 11/24/18 10:58 LM [id number]) Nutrition Notes Initial or Follow up Reassessment Current Diagnosis Acute Kidney Injury,Decubitus( Pressure Ulcer),Diabetes, Sepsis,Hypertension,Heart Failure,Respiratory Failure, Stroke Other Pertinent Diagnosis sacral wound, UTI, Dysphagia, Chronic encephalopathy Current Diet Vital AF 1.2 at 60 ml/hr Labs/Tests BG 137 Pertinent Medications Reviewed Height 5 ft 9 in Weight 96 kg Ava Body Weight (kg) 72.72 BMI 31.2 Subjective/Other Information TF running at 60 ml/hr. Pt tolerating TF. Percent of energy/protein needs met: 93%/100% Burn Absent Trauma Absent #1 Nutrition Diagnosis Inadequate oral intake Diagnosis Progress(for reassessment Continues documentation) Is patient on ventilator? No Is Patient Ambulatory and/or Out of Bed No REE-([facility]-confined to bed) [phone] Calculation Used for Recommendations [facility] Additional Notes Pro needs 1.2-2g/k-168g/ day Fluid needs 1ml/kcal Nutrition Intervention Change Diet Order: Continue TF Nutrition Support: Vital AF 1.2 at 60ml/hr with 100ml water flush q4h. Kcal 1,728 Protein (gm) 108 Carbohydrates (gm) 159 Fat (gm) 78 Fluid (mL) 1,168 Fiber (gm) 7 Goal #1 TF to meet at least 75% of energy and protein needs Anticipated Discharge Needs: Continue TF Follow-Up By: 12/01/18 Additional Comments F/U for TF tolerance and rate
[2018-11-29] MEDS: DAKIN'S HALF STRENGTH TP SCH ×2 (10:34→22:15)
[2018-11-29] MEDS: HEPARIN SUB-Q SCH ×2 (10:35→22:16)
[2018-11-29] MEDS: PREVACID SOLUTAB FEEDTUBE SCH (10:35)
[2018-11-29] MEDS: ZYVOX PO SCH ×2 (10:35→22:15)
[2018-11-29] MEDS: NORVASC PO SCH (10:37)
[2018-11-29] MEDS: ARTIFICIAL TEARS OPHTH OINT OU PRN (10:37)
--- NOTE | 2018-11-29 13:45 | Progress Note ---
Assessment and Plan -Acute on chronic hypoxic respiratory failures/p trach to ATP -Severe sepsis with shock, off vasopressors -VRE bacteremia -UTI -Large sacral decubitus ulcer -Acute on chronic metabolic encephalopathy -Orophargyngeal dysphagia s/p PEG -h/o CVAs -Transaminitis probably secondary to hypotension -Type 2 DM -Hypernatremia, improved - Follow BMP in am and further adjust free water administration - prn CXR and ABG --Supportive transfusions as indicated, to keep HgB>7g/dL -Trach care, airway clearance and secretion management -Accuchecks with glycemic control, continue with insulin infusion per protocol -Douglass catheter for accurate intake and output monitoring in this critically ill patient with history of chronic douglass/urinary retention/sacral decubitus ulcer -Avoid nephrotoxins -VTE prophylaxis -Stress ulcer prophylaxis -Antibiotics per ID, -Mobility and off loading for sacral decubitus -Wound care -Optimize nutrition to help promote wound healing -Vasopressor support as indicated for MAP<65, with blood pressure unresponsive to volume resuscitation -Continue to monitor hemodynamics CONDITION: POOR PROGNOSIS; POOR CODE STATUS: FULL Discussed care plan with RT and RN. Discharge planning Subjective Date of service: 11/29/18 Principal diagnosis: Severe sepsis with shock; Ac and ch resp failure; Metabolic encephalopathy Interval history: Patient known to our service. Per family request, care is being transferred back to us Patient is seen today for: Severe sepsis with septic shock; Acute and chronic respiratory failure on MVS; Acute and chronic metabolic encephalopathy; Seen and examined at bedside; 24hour events reviewed; nursing and respiratory care staff consulted; resting peacefully in bed; tolerating ATP, remains remains off vasopressor support; Vitals, labs, medications, chart reviewed. AMS is persistent; tolerating tube feeds; afebrile; no new issues Objective Vital Signs - 12hr 11/29/18 11/29/18 11/29/18 02:00 03:00 03:26 Temperature 97.8 F Pulse Rate 76 78 Pulse Rate [ From Monitor] Respiratory 14 12 Rate Blood Pressure 130/64 129/78 O2 Sat by Pulse 99 99 Oximetry O2 Sat by Pulse Oximetry [ Assessment] 11/29/18 11/29/18 11/29/18 04:00 04:47 06:53 Temperature Pulse Rate Pulse Rate [ 74 From Monitor] Respiratory 14 Rate Blood Pressure O2 Sat by Pulse 99 100 Oximetry O2 Sat by Pulse 100 Oximetry [ Assessment] 11/29/18 10:37 Temperature Pulse Rate 72 Pulse Rate [ From Monitor] Respiratory Rate Blood Pressure 130/61 O2 Sat by Pulse Oximetry O2 Sat by Pulse Oximetry [ Assessment] Constitutional: no acute distress, other (elderly looking AAM , unresponsive; trach in place to ATP, moderate secretions) Eyes: non-icteric ENT: oropharynx moist Neck: supple, no lymphadenopathy, no JVD, other (midline trach) Effort: normal Ascultation: Bilateral: diminished breath sounds, rales, rhonchi (scant in bases) Percussion: Bilateral: not dull Cardiovascular: regular rate and rhythm, other (S1,S2) Gastrointestinal: normoactive bowel sounds, soft, non-distended, other (PEG in place, chronic douglass catheter, scrotal edema) Integumentary: decubitus ulcer (see wound care notes) Extremities: no cyanosis, pink and warm, pulses normal, edema (2+) Neurologic: unable to assess, other (encephalopathic, unresponsive) Psychiatric: other (unable to assess) CBC and BMP: 11/28/18 04:28 11/28/18 04:28 ABG, PT/INR, D-dimer: ABG POC ABG pH 7.414 (7.35-7.45) 11/23/18 05:26 ABG pH 7.367 pH Units (7.350-7.450) 11/24/18 20:50 POC ABG pCO2 35.8 (35-45) 11/23/18 05:26 ABG pCO2 45.8 mm Hg 11/24/18 20:50 POC ABG pO2 93 (80-105) 11/23/18 05:26 ABG pO2 89.9 mm Hg (80.0-90.0) 11/24/18 20:50 POC ABG HCO3 22.9 (22-26 mml/L) 11/23/18 05:26 POC ABG Total CO2 24 (23-27mmol/L) 11/23/18 05:26 POC ABG O2 Sat 97 11/23/18 05:26 ABG O2 Saturation 97.1 % (95.0-99.0) 11/24/18 20:50 Abnormal lab findings: Abnormal Labs 11/13/18 11/13/18 11/13/18 03:30 14:00 14:00 WBC 3.8 L RBC 2.80 L Hgb 7.4 L Hct 22.9 L MCV 82 L MCH 27 L MCHC RDW 19.0 H Plt Count Lymph % (Auto) [place] % (Auto) Eos % (Auto) [place] # Seg Neutrophils % Seg Neuts % (Manual) 87.0 H Lymphocytes % (Manual) 5.0 L Eosinophils % (Manual) 7.0 H Seg Neutrophils # Lymphocytes # (Manual) 0.2 L POC ABG pH POC ABG pO2 ABG pO2 ABG Base Excess ABG Hemoglobin Oxyhemoglobin Sodium 147 H Potassium Chloride Carbon Dioxide 33 H BUN 50 H Creatinine Glucose 193 H POC Glucose Lactic Acid 3.70 H* Calcium 8.1 L Magnesium AST 154 H ALT 134 H Alkaline Phosphatase 586 H Total Creatine Kinase CK-MB (CK-2) Troponin T NT-Pro-B Natriuret Pep Albumin 1.2 L Triglycerides LDL Cholesterol Direct HDL Cholesterol Urine WBC (Auto) Crossmatch 11/13/18 11/13/18 11/13/18 14:00 14:44 14:49 WBC RBC Hgb Hct MCV MCH MCHC RDW Plt Count Lymph % (Auto) [place] % (Auto) Eos % (Auto) [place] # Seg Neutrophils % Seg Neuts % (Manual) Lymphocytes % (Manual) Eosinophils % (Manual) Seg Neutrophils # Lymphocytes # (Manual) POC ABG pH POC ABG pO2 ABG pO2 ABG Base Excess ABG Hemoglobin Oxyhemoglobin Sodium Potassium Chloride Carbon Dioxide BUN Creatinine Glucose POC Glucose Lactic Acid 2.60 H* Calcium Magnesium AST ALT Alkaline Phosphatase Total Creatine Kinase 510 H CK-MB (CK-2) 4.4 H Troponin T 0.348 H* NT-Pro-B Natriuret Pep 3679 H Albumin Triglycerides 284 H LDL Cholesterol Direct 4 L HDL Cholesterol 7 L Urine WBC (Auto) 36.0 H Crossmatch 11/13/18 11/13/18 11/13/18 14:49 14:49 14:52 WBC RBC Hgb Hct MCV MCH MCHC RDW Plt Count Lymph % (Auto) [place] % (Auto) Eos % (Auto) [place] # Seg Neutrophils % Seg Neuts % (Manual) Lymphocytes % (Manual) Eosinophils % (Manual) Seg Neutrophils # Lymphocytes # (Manual) POC ABG pH POC ABG pO2 ABG pO2 ABG Base Excess ABG Hemoglobin Oxyhemoglobin Sodium Potassium Chloride Carbon Dioxide BUN Creatinine Glucose POC Glucose 205 H Lactic Acid 3.90 H* Calcium Magnesium AST ALT Alkaline Phosphatase Total Creatine Kinase CK-MB (CK-2) Troponin T NT-Pro-B Natriuret Pep Albumin Triglycerides LDL Cholesterol Direct HDL Cholesterol Urine WBC (Auto) Crossmatch See Detail 11/13/18 11/13/18 11/13/18 16:58 17:13 19:46 WBC RBC Hgb Hct MCV MCH MCHC RDW Plt Count Lymph % (Auto) [place] % (Auto) Eos % (Auto) [place] # Seg Neutrophils % Seg Neuts % (Manual) Lymphocytes % (Manual) Eosinophils % (Manual) Seg Neutrophils # Lymphocytes # (Manual) POC ABG pH 7.573 H POC ABG pO2 ABG pO2 ABG Base Excess ABG Hemoglobin Oxyhemoglobin Sodium Potassium Chloride Carbon Dioxide BUN Creatinine Glucose POC Glucose Lactic Acid 3.90 H* 4.40 H* Calcium Magnesium AST ALT Alkaline Phosphatase Total Creatine Kinase CK-MB (CK-2) Troponin T NT-Pro-B Natriuret Pep Albumin Triglycerides LDL Cholesterol Direct HDL Cholesterol Urine WBC (Auto) Crossmatch 11/13/18 11/14/18 11/14/18 21:34 04:50 05:23 WBC RBC Hgb Hct MCV MCH MCHC RDW Plt Count Lymph % (Auto) [place] % (Auto) Eos % (Auto) [place] # Seg Neutrophils % Seg Neuts % (Manual) Lymphocytes % (Manual) Eosinophils % (Manual) Seg Neutrophils # Lymphocytes # (Manual) POC ABG pH POC ABG pO2 ABG pO2 120.8 H ABG Base Excess ABG Hemoglobin 10.9 L Oxyhemoglobin Sodium Potassium Chloride Carbon Dioxide BUN Creatinine Glucose POC Glucose 263 H Lactic Acid 4.50 H* Calcium Magnesium AST ALT Alkaline Phosphatase Total Creatine Kinase CK-MB (CK-2) Troponin T NT-Pro-B Natriuret Pep Albumin Triglycerides LDL Cholesterol Direct HDL Cholesterol Urine WBC (Auto) Crossmatch 11/14/18 11/14/18 11/14/18 05:46 08:02 12:42 WBC RBC Hgb Hct MCV MCH MCHC RDW Plt Count Lymph % (Auto) [place] % (Auto) Eos % (Auto) [place] # Seg Neutrophils % Seg Neuts % (Manual) Lymphocytes % (Manual) Eosinophils % (Manual) Seg Neutrophils # Lymphocytes # (Manual) POC ABG pH 7.463 H POC ABG pO2 136 H ABG pO2 ABG Base Excess ABG Hemoglobin Oxyhemoglobin Sodium Potassium Chloride Carbon Dioxide BUN Creatinine Glucose POC Glucose 213 H Lactic Acid 2.70 H* Calcium Magnesium AST ALT Alkaline Phosphatase Total Creatine Kinase CK-MB (CK-2) Troponin T NT-Pro-B Natriuret Pep Albumin Triglycerides LDL Cholesterol Direct HDL Cholesterol Urine WBC (Auto) Crossmatch 11/14/18 11/14/18 11/14/18 14:17 14:17 15:50 WBC 13.1 H 13.1 H RBC 2.36 L 2.36 L Hgb 6.1 L 6.1 L Hct 19.6 L* 19.4 L* MCV 83 L 82 L MCH 26 L 26 L MCHC 31 L 31 L RDW 19.4 H 19.3 H Plt Count Lymph % (Auto) [place] % (Auto) Eos % (Auto) [place] # Seg Neutrophils % Seg Neuts % (Manual) Lymphocytes % (Manual) Eosinophils % (Manual) Seg Neutrophils # Lymphocytes # (Manual) POC ABG pH POC ABG pO2 ABG pO2 ABG Base Excess ABG Hemoglobin Oxyhemoglobin Sodium 148 H Potassium Chloride 110.3 H Carbon Dioxide BUN 56 H Creatinine Glucose 203 H POC Glucose Lactic Acid Calcium 7.6 L Magnesium AST ALT Alkaline Phosphatase Total Creatine Kinase CK-MB (CK-2) Troponin T NT-Pro-B Natriuret Pep Albumin Triglycerides LDL Cholesterol Direct HDL Cholesterol Urine WBC (Auto) Crossmatch 11/14/18 11/14/18 11/15/18 18:19 23:52 05:10 WBC 16.2 H RBC 3.22 L Hgb 8.8 L Hct 26.8 L D MCV 83 L MCH 27 L MCHC RDW 16.8 H Plt Count Lymph % (Auto) [place] % (Auto) Eos % (Auto) [place] # Seg Neutrophils % Seg Neuts % (Manual) Lymphocytes % (Manual) Eosinophils % (Manual) Seg Neutrophils # Lymphocytes # (Manual) POC ABG pH POC ABG pO2 ABG pO2 ABG Base Excess ABG Hemoglobin Oxyhemoglobin Sodium Potassium Chloride Carbon Dioxide BUN Creatinine Glucose POC Glucose 213 H 242 H Lactic Acid Calcium Magnesium AST ALT Alkaline Phosphatase Total Creatine Kinase CK-MB (CK-2) Troponin T NT-Pro-B Natriuret Pep Albumin Triglycerides LDL Cholesterol Direct HDL Cholesterol Urine WBC (Auto) Crossmatch 0811/15/18 11/15/18 05:10 05:36 11:15 WBC RBC Hgb Hct MCV MCH MCHC RDW Plt Count Lymph % (Auto) [place] % (Auto) Eos % (Auto) [place] # Seg Neutrophils % Seg Neuts % (Manual) Lymphocytes % (Manual) Eosinophils % (Manual) Seg Neutrophils # Lymphocytes # (Manual) POC ABG pH POC ABG pO2 ABG pO2 ABG Base Excess ABG Hemoglobin Oxyhemoglobin Sodium 148 H Potassium 3.5 L Chloride 112.8 H Carbon Dioxide BUN 51 H Creatinine Glucose 154 H POC Glucose 143 H 139 H Lactic Acid Calcium 7.8 L Magnesium AST ALT Alkaline Phosphatase Total Creatine Kinase CK-MB (CK-2) Troponin T NT-Pro-B Natriuret Pep Albumin Triglycerides LDL Cholesterol Direct HDL Cholesterol Urine WBC (Auto) Crossmatch 11/15/18 11/15/18 11/15/18 12:00 18:28 20:56 WBC RBC Hgb Hct MCV MCH MCHC RDW Plt Count Lymph % (Auto) [place] % (Auto) Eos % (Auto) [place] # Seg Neutrophils % Seg Neuts % (Manual) Lymphocytes % (Manual) Eosinophils % (Manual) Seg Neutrophils # Lymphocytes # (Manual) POC ABG pH POC ABG pO2 ABG pO2 ABG Base Excess ABG Hemoglobin Oxyhemoglobin Sodium 148 H Potassium 3.2 L Chloride 113.0 H Carbon Dioxide BUN 44 H Creatinine Glucose 144 H POC Glucose 159 H 150 H Lactic Acid Calcium 7.7 L Magnesium AST ALT Alkaline Phosphatase Total Creatine Kinase CK-MB (CK-2) Troponin T NT-Pro-B Natriuret Pep Albumin Triglycerides LDL Cholesterol Direct HDL Cholesterol Urine WBC (Auto) Crossmatch 11/15/18 11/16/18 11/16/18 23:32 03:40 03:45 WBC 16.1 H RBC 3.30 L Hgb 8.9 L Hct 27.9 L MCV MCH 27 L MCHC RDW 17.5 H Plt Count Lymph % (Auto) [place] % (Auto) Eos % (Auto) [place] # Seg Neutrophils % Seg Neuts % (Manual) Lymphocytes % (Manual) Eosinophils % (Manual) Seg Neutrophils # Lymphocytes # (Manual) POC ABG pH POC ABG pO2 ABG pO2 147.0 H ABG Base Excess ABG Hemoglobin 12.0 L Oxyhemoglobin Sodium Potassium Chloride Carbon Dioxide BUN Creatinine Glucose POC Glucose 131 H Lactic Acid Calcium Magnesium AST ALT Alkaline Phosphatase Total Creatine Kinase CK-MB (CK-2) Troponin T NT-Pro-B Natriuret Pep Albumin Triglycerides LDL Cholesterol Direct HDL Cholesterol Urine WBC (Auto) Crossmatch 11/16/18 11/16/18 11/16/18 03:45 05:15 15:14 WBC RBC Hgb Hct MCV MCH MCHC RDW Plt Count Lymph % (Auto) [facility] % (Auto) Eos % (Auto) [place] # Seg Neutrophils % Seg Neuts % (Manual) Lymphocytes % (Manual) Eosinophils % (Manual) Seg Neutrophils # Lymphocytes # (Manual) POC ABG pH POC ABG pO2 ABG pO2 ABG Base Excess ABG Hemoglobin Oxyhemoglobin Sodium 149 H Potassium 3.5 L Chloride 116.2 H Carbon Dioxide 21 L BUN 41 H Creatinine Glucose 146 H POC Glucose 155 H 215 H Lactic Acid Calcium 7.7 L Magnesium AST ALT Alkaline Phosphatase Total Creatine Kinase CK-MB (CK-2) Troponin T NT-Pro-B Natriuret Pep Albumin Triglycerides LDL Cholesterol Direct HDL Cholesterol Urine WBC (Auto) Crossmatch 11/16/18 11/16/18 11/17/18 18:20 23:49 04:49 WBC 12.1 H RBC 3.34 L Hgb 9.0 L Hct 28.1 L MCV MCH 27 L MCHC RDW 17.5 H Plt Count Lymph % (Auto) [facility] % (Auto) Eos % (Auto) [place] # Seg Neutrophils % Seg Neuts % (Manual) Lymphocytes % (Manual) Eosinophils % (Manual) Seg Neutrophils # Lymphocytes # (Manual) POC ABG pH POC ABG pO2 ABG pO2 ABG Base Excess ABG Hemoglobin Oxyhemoglobin Sodium Potassium Chloride Carbon Dioxide BUN Creatinine Glucose POC Glucose 230 H 189 H Lactic Acid Calcium Magnesium AST ALT Alkaline Phosphatase Total Creatine Kinase CK-MB (CK-2) Troponin T NT-Pro-B Natriuret Pep Albumin Triglycerides LDL Cholesterol Direct HDL Cholesterol Urine WBC (Auto) Crossmatch 11/17/18 11/17/18 11/17/18 04:49 05:45 14:16 WBC RBC Hgb Hct MCV MCH MCHC RDW Plt Count Lymph % (Auto) [facility] % (Auto) Eos % (Auto) [place] # Seg Neutrophils % Seg Neuts % (Manual) Lymphocytes % (Manual) Eosinophils % (Manual) Seg Neutrophils # Lymphocytes # (Manual) POC ABG pH POC ABG pO2 ABG pO2 ABG Base Excess ABG Hemoglobin Oxyhemoglobin Sodium 150 H Potassium 3.2 L Chloride 118.9 H Carbon Dioxide 20 L BUN 38 H Creatinine 0.7 L Glucose 164 H POC Glucose 181 H 172 H Lactic Acid Calcium 7.7 L Magnesium AST ALT Alkaline Phosphatase Total Creatine Kinase CK-MB (CK-2) Troponin T NT-Pro-B Natriuret Pep Albumin Triglycerides LDL Cholesterol Direct HDL Cholesterol Urine WBC (Auto) Crossmatch 11/17/18 11/17/18 11/18/18 23:36 Unknown 04:10 WBC RBC Hgb Hct MCV MCH MCHC RDW Plt Count Lymph % (Auto) [place] % (Auto) Eos % (Auto) [place] # Seg Neutrophils % Seg Neuts % (Manual) Lymphocytes % (Manual) Eosinophils % (Manual) Seg Neutrophils # Lymphocytes # (Manual) POC ABG pH POC ABG pO2 ABG pO2 105.9 H 101.8 H ABG Base Excess -2.3 L -3.2 L ABG Hemoglobin 11.5 L 10.2 L Oxyhemoglobin Sodium Potassium Chloride Carbon Dioxide BUN Creatinine Glucose POC Glucose 214 H Lactic Acid Calcium Magnesium AST ALT Alkaline Phosphatase Total Creatine Kinase CK-MB (CK-2) Troponin T NT-Pro-B Natriuret Pep Albumin Triglycerides LDL Cholesterol Direct HDL Cholesterol Urine WBC (Auto) Crossmatch 11/18/18 11/18/18 11/18/18 04:37 04:37 05:36 WBC RBC 3.10 L Hgb 8.5 L Hct 26.8 L MCV MCH 27 L MCHC RDW 17.8 H Plt Count Lymph % (Auto) 12.[address] [place] % (Auto) 8.5 H Eos % (Auto) [facility] # 0.9 H Seg Neutrophils % 75.8 H Seg Neuts % (Manual) Lymphocytes % (Manual) Eosinophils % (Manual) Seg Neutrophils # 8.0 H Lymphocytes # (Manual) POC ABG pH POC ABG pO2 ABG pO2 ABG Base Excess ABG Hemoglobin Oxyhemoglobin Sodium 148 H Potassium 3.3 L Chloride 118.3 H Carbon Dioxide 20 L BUN 32 H Creatinine 0.7 L Glucose 154 H POC Glucose 171 H Lactic Acid Calcium 7.4 L Magnesium AST ALT Alkaline Phosphatase Total Creatine Kinase CK-MB (CK-2) Troponin T NT-Pro-B Natriuret Pep Albumin Triglycerides LDL Cholesterol Direct HDL Cholesterol Urine WBC (Auto) Crossmatch 11/18/18 11/18/18 11/18/18 12:10 17:27 23:56 WBC RBC Hgb Hct MCV MCH MCHC RDW Plt Count Lymph % (Auto) [facility] % (Auto) Eos % (Auto) [facility] # Seg Neutrophils % Seg Neuts % (Manual) Lymphocytes % (Manual) Eosinophils % (Manual) Seg Neutrophils # Lymphocytes # (Manual) POC ABG pH POC ABG pO2 ABG pO2 ABG Base Excess ABG Hemoglobin Oxyhemoglobin Sodium Potassium Chloride Carbon Dioxide BUN Creatinine Glucose POC Glucose 244 H 239 H 241 H Lactic Acid Calcium Magnesium AST ALT Alkaline Phosphatase Total Creatine Kinase CK-MB (CK-2) Troponin T NT-Pro-B Natriuret Pep Albumin Triglycerides LDL Cholesterol Direct HDL Cholesterol Urine WBC (Auto) Crossmatch 11/19/18 11/19/18 11/19/18 03:45 04:27 06:37 WBC RBC Hgb Hct MCV MCH MCHC RDW Plt Count Lymph % (Auto) [facility] % (Auto) Eos % (Auto) [place] # Seg Neutrophils % Seg Neuts % (Manual) Lymphocytes % (Manual) Eosinophils % (Manual) Seg Neutrophils # Lymphocytes # (Manual) POC ABG pH POC ABG pO2 ABG pO2 95.5 H ABG Base Excess -4.0 L ABG Hemoglobin 5.9 L Oxyhemoglobin Sodium 147 H Potassium Chloride 119.2 H Carbon Dioxide 20 L BUN 28 H Creatinine 0.6 L Glucose 181 H POC Glucose 220 H Lactic Acid Calcium 7.6 L Magnesium AST ALT Alkaline Phosphatase Total Creatine Kinase CK-MB (CK-2) Troponin T NT-Pro-B Natriuret Pep Albumin Triglycerides LDL Cholesterol Direct HDL Cholesterol Urine WBC (Auto) Crossmatch 11/19/18 11/19/18 11/19/18 06:41 11:27 17:31 WBC RBC 3.28 L Hgb 9.0 L Hct 28.2 L MCV MCH MCHC RDW 17.9 H Plt Count Lymph % (Auto) [facility] % (Auto) 11.0 H Eos % (Auto) [facility] # 1.1 H Seg Neutrophils % Seg Neuts % (Manual) Lymphocytes % (Manual) Eosinophils % (Manual) Seg Neutrophils # Lymphocytes # (Manual) POC ABG pH POC ABG pO2 ABG pO2 ABG Base Excess ABG Hemoglobin Oxyhemoglobin Sodium Potassium Chloride Carbon Dioxide BUN Creatinine Glucose POC Glucose 280 H 300 H Lactic Acid Calcium Magnesium AST ALT Alkaline Phosphatase Total Creatine Kinase CK-MB (CK-2) Troponin T NT-Pro-B Natriuret Pep Albumin Triglycerides LDL Cholesterol Direct HDL Cholesterol Urine WBC (Auto) Crossmatch 11/19/18 11/20/18 11/20/18 23:30 03:03 03:03 WBC RBC 3.04 L Hgb 8.4 L Hct 26.1 L MCV MCH MCHC RDW 18.1 H Plt Count Lymph % (Auto) [facility] % (Auto) 11.0 H Eos % (Auto) [facility] # 0.9 H Seg Neutrophils % Seg Neuts % (Manual) Lymphocytes % (Manual) Eosinophils % (Manual) Seg Neutrophils # Lymphocytes # (Manual) POC ABG pH POC ABG pO2 ABG pO2 ABG Base Excess ABG Hemoglobin Oxyhemoglobin Sodium 148 H Potassium Chloride 117.4 H Carbon Dioxide BUN 24 H Creatinine 0.6 L Glucose 238 H POC Glucose 251 H Lactic Acid Calcium 7.9 L Magnesium AST ALT Alkaline Phosphatase Total Creatine Kinase CK-MB (CK-2) Troponin T NT-Pro-B Natriuret Pep Albumin Triglycerides LDL Cholesterol Direct HDL Cholesterol Urine WBC (Auto) Crossmatch 11/20/18 11/20/18 11/20/18 04:20 05:15 12:21 WBC RBC Hgb Hct MCV MCH MCHC RDW Plt Count Lymph % (Auto) [facility] % (Auto) Eos % (Auto) [place] # Seg Neutrophils % Seg Neuts % (Manual) Lymphocytes % (Manual) Eosinophils % (Manual) Seg Neutrophils # Lymphocytes # (Manual) POC ABG pH POC ABG pO2 ABG pO2 91.3 H ABG Base Excess -2.6 L ABG Hemoglobin 8.3 L Oxyhemoglobin Sodium Potassium Chloride Carbon Dioxide BUN Creatinine Glucose POC Glucose 213 H 318 H Lactic Acid Calcium Magnesium AST ALT Alkaline Phosphatase Total Creatine Kinase CK-MB (CK-2) Troponin T NT-Pro-B Natriuret Pep Albumin Triglycerides LDL Cholesterol Direct HDL Cholesterol Urine WBC (Auto) Crossmatch 11/20/18 11/20/18 11/20/18 18:01 20:50 23:36 WBC RBC Hgb Hct MCV MCH MCHC RDW Plt Count Lymph % (Auto) [facility] % (Auto) Eos % (Auto) [place] # Seg Neutrophils % Seg Neuts % (Manual) Lymphocytes % (Manual) Eosinophils % (Manual) Seg Neutrophils # Lymphocytes # (Manual) POC ABG pH POC ABG pO2 ABG pO2 90.8 H ABG Base Excess -2.1 L ABG Hemoglobin 13.4 L Oxyhemoglobin 94.9 L Sodium Potassium Chloride Carbon Dioxide BUN Creatinine Glucose POC Glucose 301 H 290 H Lactic Acid Calcium Magnesium AST ALT Alkaline Phosphatase Total Creatine Kinase CK-MB (CK-2) Troponin T NT-Pro-B Natriuret Pep Albumin Triglycerides LDL Cholesterol Direct HDL Cholesterol Urine WBC (Auto) Crossmatch 11/21/18 11/21/18 11/21/18 03:09 03:09 05:10 WBC RBC 3.05 L Hgb 8.5 L Hct 26.1 L MCV MCH MCHC RDW 18.7 H Plt Count Lymph % (Auto) [facility] % (Auto) 12.2 H Eos % (Auto) [facility] # 0.9 H Seg Neutrophils % Seg Neuts % (Manual) Lymphocytes % (Manual) Eosinophils % (Manual) Seg Neutrophils # Lymphocytes # (Manual) POC ABG pH POC ABG pO2 ABG pO2 ABG Base Excess ABG Hemoglobin Oxyhemoglobin Sodium 150 H Potassium 3.5 L Chloride 118.5 H Carbon Dioxide BUN 22 H Creatinine 0.6 L Glucose 279 H POC Glucose 307 H Lactic Acid Calcium 7.7 L Magnesium AST ALT Alkaline Phosphatase Total Creatine Kinase CK-MB (CK-2) Troponin T NT-Pro-B Natriuret Pep Albumin Triglycerides LDL Cholesterol Direct HDL Cholesterol Urine WBC (Auto) Crossmatch 11/21/18 11/21/18 11/21/18 11:24 17:23 23:20 WBC RBC Hgb Hct MCV MCH MCHC RDW Plt Count Lymph % (Auto) [facility] % (Auto) Eos % (Auto) [facility] # Seg Neutrophils % Seg Neuts % (Manual) Lymphocytes % (Manual) Eosinophils % (Manual) Seg Neutrophils # Lymphocytes # (Manual) POC ABG pH POC ABG pO2 ABG pO2 ABG Base Excess ABG Hemoglobin Oxyhemoglobin Sodium Potassium Chloride Carbon Dioxide BUN Creatinine Glucose POC Glucose 324 H 288 H 254 H Lactic Acid Calcium Magnesium AST ALT Alkaline Phosphatase Total Creatine Kinase CK-MB (CK-2) Troponin T NT-Pro-B Natriuret Pep Albumin Triglycerides LDL Cholesterol Direct HDL Cholesterol Urine WBC (Auto) Crossmatch 11/22/18 11/22/18 11/22/18 03:50 05:43 06:10 WBC RBC 2.93 L Hgb 8.1 L Hct 25.2 L MCV MCH MCHC RDW 18.6 H Plt Count Lymph % (Auto) [facility] % (Auto) 10.9 H Eos % (Auto) 4.[address] [place] # 0.9 H Seg Neutrophils % Seg Neuts % (Manual) Lymphocytes % (Manual) Eosinophils % (Manual) Seg Neutrophils # Lymphocytes # (Manual) POC ABG pH POC ABG pO2 ABG pO2 94.6 H ABG Base Excess ABG Hemoglobin 6.5 L Oxyhemoglobin Sodium Potassium Chloride Carbon Dioxide BUN Creatinine Glucose POC Glucose 227 H Lactic Acid Calcium Magnesium AST ALT Alkaline Phosphatase Total Creatine Kinase CK-MB (CK-2) Troponin T NT-Pro-B Natriuret Pep Albumin Triglycerides LDL Cholesterol Direct HDL Cholesterol Urine WBC (Auto) Crossmatch 11/22/18 11/22/18 11/22/18 06:10 11:35 17:07 WBC RBC Hgb Hct MCV MCH MCHC RDW Plt Count Lymph % (Auto) [facility] % (Auto) Eos % (Auto) [facility] # Seg Neutrophils % Seg Neuts % (Manual) Lymphocytes % (Manual) Eosinophils % (Manual) Seg Neutrophils # Lymphocytes # (Manual) POC ABG pH POC ABG pO2 ABG pO2 ABG Base Excess ABG Hemoglobin Oxyhemoglobin Sodium 146 H Potassium 3.3 L Chloride 114.8 H Carbon Dioxide BUN 21 H Creatinine 0.5 L Glucose 214 H POC Glucose 262 H 205 H Lactic Acid Calcium 7.7 L Magnesium AST ALT Alkaline Phosphatase Total Creatine Kinase CK-MB (CK-2) Troponin T NT-Pro-B Natriuret Pep Albumin Triglycerides LDL Cholesterol Direct HDL Cholesterol Urine WBC (Auto) Crossmatch 11/22/18 11/23/18 11/23/18 23:23 05:35 06:48 WBC RBC 2.90 L Hgb 8.0 L Hct 25.1 L MCV MCH MCHC RDW 18.7 H Plt Count Lymph % (Auto) [facility] % (Auto) 8.7 H Eos % (Auto) 4.[address] [place] # Seg Neutrophils % Seg Neuts % (Manual) Lymphocytes % (Manual) Eosinophils % (Manual) Seg Neutrophils # Lymphocytes # (Manual) POC ABG pH POC ABG pO2 ABG pO2 ABG Base Excess ABG Hemoglobin Oxyhemoglobin Sodium Potassium Chloride Carbon Dioxide BUN Creatinine Glucose POC Glucose 165 H 140 H Lactic Acid Calcium Magnesium AST ALT Alkaline Phosphatase Total Creatine Kinase CK-MB (CK-2) Troponin T NT-Pro-B Natriuret Pep Albumin Triglycerides LDL Cholesterol Direct HDL Cholesterol Urine WBC (Auto) Crossmatch 11/23/18 11/23/18 11/23/18 06:48 12:00 17:16 WBC RBC Hgb Hct MCV MCH MCHC RDW Plt Count Lymph % (Auto) [facility] % (Auto) Eos % (Auto) [facility] # Seg Neutrophils % Seg Neuts % (Manual) Lymphocytes % (Manual) Eosinophils % (Manual) Seg Neutrophils # Lymphocytes # (Manual) POC ABG pH POC ABG pO2 ABG pO2 ABG Base Excess ABG Hemoglobin Oxyhemoglobin Sodium 146 H Potassium Chloride 115.4 H Carbon Dioxide BUN Creatinine 0.4 L Glucose 144 H POC Glucose 199 H 207 H Lactic Acid Calcium 7.8 L Magnesium AST ALT Alkaline Phosphatase Total Creatine Kinase CK-MB (CK-2) Troponin T NT-Pro-B Natriuret Pep Albumin Triglycerides LDL Cholesterol Direct HDL Cholesterol Urine WBC (Auto) Crossmatch 11/23/18 11/23/18 11/24/18 22:23 23:57 05:38 WBC RBC Hgb Hct MCV MCH MCHC RDW Plt Count Lymph % (Auto) [place] % (Auto) Eos % (Auto) [place] # Seg Neutrophils % Seg Neuts % (Manual) Lymphocytes % (Manual) Eosinophils % (Manual) Seg Neutrophils # Lymphocytes # (Manual) POC ABG pH POC ABG pO2 ABG pO2 ABG Base Excess ABG Hemoglobin Oxyhemoglobin Sodium Potassium Chloride Carbon Dioxide BUN Creatinine Glucose POC Glucose 186 H 172 H 137 H Lactic Acid Calcium Magnesium AST ALT Alkaline Phosphatase Total Creatine Kinase CK-MB (CK-2) Troponin T NT-Pro-B Natriuret Pep Albumin Triglycerides LDL Cholesterol Direct HDL Cholesterol Urine WBC (Auto) Crossmatch 11/24/18 11/24/18 11/24/18 12:23 17:53 20:50 WBC RBC Hgb Hct MCV MCH MCHC RDW Plt Count Lymph % (Auto) [place] % (Auto) Eos % (Auto) [place] # Seg Neutrophils % Seg Neuts % (Manual) Lymphocytes % (Manual) Eosinophils % (Manual) Seg Neutrophils # Lymphocytes # (Manual) POC ABG pH POC ABG pO2 ABG pO2 ABG Base Excess ABG Hemoglobin 8.2 L Oxyhemoglobin 94.8 L Sodium Potassium Chloride Carbon Dioxide BUN Creatinine Glucose POC Glucose 168 H 170 H Lactic Acid Calcium Magnesium AST ALT Alkaline Phosphatase Total Creatine Kinase CK-MB (CK-2) Troponin T NT-Pro-B Natriuret Pep Albumin Triglycerides LDL Cholesterol Direct HDL Cholesterol Urine WBC (Auto) Crossmatch 11/24/18 11/24/18 11/25/18 21:11 23:46 04:24 WBC RBC 2.78 L Hgb 7.7 L Hct 23.7 L MCV MCH MCHC RDW 18.7 H Plt Count Lymph % (Auto) [place] % (Auto) Eos % (Auto) [place] # Seg Neutrophils % Seg Neuts % (Manual) Lymphocytes % (Manual) Eosinophils % (Manual) Seg Neutrophils # Lymphocytes # (Manual) POC ABG pH POC ABG pO2 ABG pO2 ABG Base Excess ABG Hemoglobin Oxyhemoglobin Sodium Potassium Chloride Carbon Dioxide BUN Creatinine Glucose POC Glucose 190 H 169 H Lactic Acid Calcium Magnesium AST ALT Alkaline Phosphatase Total Creatine Kinase CK-MB (CK-2) Troponin T NT-Pro-B Natriuret Pep Albumin Triglycerides LDL Cholesterol Direct HDL Cholesterol Urine WBC (Auto) Crossmatch 11/25/18 11/25/18 11/25/18 04:24 04:24 05:14 WBC RBC Hgb Hct MCV MCH MCHC RDW Plt Count Lymph % (Auto) [place] % (Auto) Eos % (Auto) [place] # Seg Neutrophils % Seg Neuts % (Manual) Lymphocytes % (Manual) Eosinophils % (Manual) Seg Neutrophils # Lymphocytes # (Manual) POC ABG pH POC ABG pO2 ABG pO2 ABG Base Excess ABG Hemoglobin Oxyhemoglobin Sodium Potassium 3.5 L Chloride 108.1 H Carbon Dioxide BUN Creatinine 0.4 L Glucose 119 H POC Glucose 138 H Lactic Acid Calcium 7.9 L Magnesium 1.50 L AST ALT Alkaline Phosphatase Total Creatine Kinase CK-MB (CK-2) Troponin T NT-Pro-B Natriuret Pep Albumin Triglycerides LDL Cholesterol Direct HDL Cholesterol Urine WBC (Auto) Crossmatch 11/25/18 11/25/18 11/25/18 11:46 17:45 23:39 WBC RBC Hgb Hct MCV MCH MCHC RDW Plt Count Lymph % (Auto) [place] % (Auto) Eos % (Auto) [place] # Seg Neutrophils % Seg Neuts % (Manual) Lymphocytes % (Manual) Eosinophils % (Manual) Seg Neutrophils # Lymphocytes # (Manual) POC ABG pH POC ABG pO2 ABG pO2 ABG Base Excess ABG Hemoglobin Oxyhemoglobin Sodium Potassium Chloride Carbon Dioxide BUN Creatinine Glucose POC Glucose 160 H 107 H 118 H Lactic Acid Calcium Magnesium AST ALT Alkaline Phosphatase Total Creatine Kinase CK-MB (CK-2) Troponin T NT-Pro-B Natriuret Pep Albumin Triglycerides LDL Cholesterol Direct HDL Cholesterol Urine WBC (Auto) Crossmatch 11/26/18 11/26/18 11/26/18 05:43 05:50 05:50 WBC RBC 2.91 L Hgb 8.1 L Hct 25.1 L MCV MCH MCHC RDW 19.4 H Plt Count 127 L Lymph % (Auto) [place] % (Auto) Eos % (Auto) [place] # Seg Neutrophils % Seg Neuts % (Manual) Lymphocytes % (Manual) Eosinophils % (Manual) Seg Neutrophils # Lymphocytes # (Manual) POC ABG pH POC ABG pO2 ABG pO2 ABG Base Excess ABG Hemoglobin Oxyhemoglobin Sodium Potassium Chloride 109.7 H Carbon Dioxide BUN Creatinine 0.4 L Glucose 118 H POC Glucose 142 H Lactic Acid Calcium 8.0 L Magnesium AST ALT Alkaline Phosphatase Total Creatine Kinase CK-MB (CK-2) Troponin T NT-Pro-B Natriuret Pep Albumin Triglycerides LDL Cholesterol Direct HDL Cholesterol Urine WBC (Auto) Crossmatch 11/26/18 11/27/18 11/27/18 12:26 05:35 05:35 WBC RBC 2.99 L Hgb 8.3 L Hct 25.3 L MCV MCH MCHC RDW 18.4 H Plt Count 134 L Lymph % (Auto) [place] % (Auto) Eos % (Auto) [place] # Seg Neutrophils % Seg Neuts % (Manual) Lymphocytes % (Manual) Eosinophils % (Manual) Seg Neutrophils # Lymphocytes # (Manual) POC ABG pH POC ABG pO2 ABG pO2 ABG Base Excess ABG Hemoglobin Oxyhemoglobin Sodium Potassium Chloride Carbon Dioxide BUN Creatinine 0.5 L Glucose 110 H POC Glucose 129 H Lactic Acid Calcium 8.0 L Magnesium AST ALT Alkaline Phosphatase Total Creatine Kinase CK-MB (CK-2) Troponin T NT-Pro-B Natriuret Pep Albumin Triglycerides LDL Cholesterol Direct HDL Cholesterol Urine WBC (Auto) Crossmatch 11/27/18 11/27/18 11/27/18 12:30 17:26 22:38 WBC RBC Hgb Hct MCV MCH MCHC RDW Plt Count Lymph % (Auto) [place] % (Auto) Eos % (Auto) [place] # Seg Neutrophils % Seg Neuts % (Manual) Lymphocytes % (Manual) Eosinophils % (Manual) Seg Neutrophils # Lymphocytes # (Manual) POC ABG pH POC ABG pO2 ABG pO2 ABG Base Excess ABG Hemoglobin Oxyhemoglobin Sodium Potassium Chloride Carbon Dioxide BUN Creatinine Glucose POC Glucose 155 H 196 H 208 H Lactic Acid Calcium Magnesium AST ALT Alkaline Phosphatase Total Creatine Kinase CK-MB (CK-2) Troponin T NT-Pro-B Natriuret Pep Albumin Triglycerides LDL Cholesterol Direct HDL Cholesterol Urine WBC (Auto) Crossmatch 11/28/18 11/28/18 11/28/18 04:28 04:28 06:23 WBC RBC 2.72 L Hgb 7.7 L Hct 22.8 L MCV MCH MCHC RDW 18.7 H Plt Count 125 L Lymph % (Auto) [place] % (Auto) Eos % (Auto) [place] # Seg Neutrophils % Seg Neuts % (Manual) Lymphocytes % (Manual) Eosinophils % (Manual) Seg Neutrophils # Lymphocytes # (Manual) POC ABG pH POC ABG pO2 ABG pO2 ABG Base Excess ABG Hemoglobin Oxyhemoglobin Sodium Potassium Chloride Carbon Dioxide BUN 23 H Creatinine 0.4 L Glucose 112 H POC Glucose 125 H Lactic Acid Calcium 8.0 L Magnesium AST ALT Alkaline Phosphatase Total Creatine Kinase CK-MB (CK-2) Troponin T NT-Pro-B Natriuret Pep Albumin Triglycerides LDL Cholesterol Direct HDL Cholesterol Urine WBC (Auto) Crossmatch 11/28/18 11/28/18 11/29/18 12:07 17:58 00:27 WBC RBC Hgb Hct MCV MCH MCHC RDW Plt Count Lymph % (Auto) [place] % (Auto) Eos % (Auto) [place] # Seg Neutrophils % Seg Neuts % (Manual) Lymphocytes % (Manual) Eosinophils % (Manual) Seg Neutrophils # Lymphocytes # (Manual) POC ABG pH POC ABG pO2 ABG pO2 ABG Base Excess ABG Hemoglobin Oxyhemoglobin Sodium Potassium Chloride Carbon Dioxide BUN Creatinine Glucose POC Glucose 138 H 138 H 207 H Lactic Acid Calcium Magnesium AST ALT Alkaline Phosphatase Total Creatine Kinase CK-MB (CK-2) Troponin T NT-Pro-B Natriuret Pep Albumin Triglycerides LDL Cholesterol Direct HDL Cholesterol Urine WBC (Auto) Crossmatch 11/29/18 11/29/18 05:33 12:52 WBC RBC Hgb Hct MCV MCH MCHC RDW Plt Count Lymph % (Auto) [place] % (Auto) Eos % (Auto) [place] # Seg Neutrophils % Seg Neuts % (Manual) Lymphocytes % (Manual) Eosinophils % (Manual) Seg Neutrophils # Lymphocytes # (Manual) POC ABG pH POC ABG pO2 ABG pO2 ABG Base Excess ABG Hemoglobin Oxyhemoglobin Sodium Potassium Chloride Carbon Dioxide BUN Creatinine Glucose POC Glucose 173 H 128 H Lactic Acid Calcium Magnesium AST ALT Alkaline Phosphatase Total Creatine Kinase CK-MB (CK-2) Troponin T NT-Pro-B Natriuret Pep Albumin Triglycerides LDL Cholesterol Direct HDL Cholesterol Urine WBC (Auto) Crossmatch Allied health notes reviewed: nursing
[2018-11-30] MEDS: HumaLOG SUB-Q SCH ×4 (05:42→17:54)
[2018-11-30] MEDS: ROBINUL PO SCH ×3 (05:44→22:07)
[2018-11-30 06:16] LABS: Hematocrit 21.8 % (35.5-45.6); Hemoglobin 7.3 gm/dl (11.8-15.2); Mean Corpuscular HGB Conc 34 % (32-34); Mean Corpuscular Volume 84 fl (84-94); Platelet Count 119 K/mm3 (140-440); Red Cell Distribution Width 18.6 % (13.2-15.2)
[2018-11-30 06:42] LABS: BUN/Creatinine Ratio 58; Blood Urea Nitrogen 23 mg/dL (9-20); Calcium 8.1 mg/dL (8.4-10.2); Hemolysis Index 1
--- NOTE | 2018-11-30 08:23 | Progress Note ---
Assessment and Plan Assessment and plan: Patient is 77 yo resident at [facility] with chronic resp failure s/p trach, diabetes, BPH,hypertension, chronic hypoxic encephalopatyhy. He was sent to ED from [facility] facility because of difficulty breathing, respiratory distress. He was seen and evaluated in ED and duagnosed with acute on chronic respiratory failure failure and hypotension. He was put on ventilator since he already had a tracheostomy. He was diagnosed with sepsis with septic shock, started on iv Abx and previously required pressors which are off now. He remained only minimally responsive. wants 'everything' done. patient has sacral decub ulcer and considering debridement surgery by Dr. Marvin. He is now off ventilator, transferred to [facility]. he is still critically ill. Acute on chronic resp failure Cont. tracheostomy care, secretion control and airway mangement Pulmonology following Off ventilator Severe Sepsis with septic shock due to VRE off vasopressors Blood cultures Enterococcus Faecium 4 of 4 bottles ID Physician following Continue antibiotics per ID recommendations, Zyvox 600 mg twice a day for total of 14 day Sacral decub ulcer. Appreciate general surgery recommendations. considering surgery Diabetes mellitus type 2 Fingerstick q4h Anemia s/p 2 Units PRBC stool occult blood neg Hypertension by history. Monitor History of chronic hypoxic encephalopathy Hyperlipidemia Hypernatremia Hypokalemia Replaced Hypomagnesemia Resolved Full code status Poor prognosis. I had a long discussion with the who wants to continue full supportive and aggressive care. Surgery also had a discussion with the with regards to debridement of his wound. tells me she has not decided on surgery yet. History Interval history: Still only minimally responsive Transferred to [facility] Hypothermia Hospitalist Physical - Physical exam Narrative exam: Gen: Not in acute distress, lying in bed, ill looking HEENT: Normocephalic, atraumatic, tracheostomy to t-piece Neck: supple, no JVD,trach Heart: S1 and S2 reg, no murmurs, rubs or gallop Lungs: Clear, no crackles, no rhonchi Abd: soft, non tender, non distended, normal BS, PEG tube Ext: No edema, no clubbing, no cyanosis Neuro: Minimal responsive, Does not follow commands Sacral:sacral decub ulcer - Constitutional Vitals: Temp Pulse Resp BP Pulse Ox 98.3 F 78 13 131/64 100 11/30/18 03:47 11/29/18 20:00 11/29/18 20:00 11/29/18 20:00 11/30/18 03:52 General appearance: Present: no acute distress, obese Results - Labs CBC & Chem 7: 11/30/18 05:58 11/30/18 05:58 Labs: Laboratory Last Values WBC 6.0 K/mm3 (4.5-11.0) 11/30/18 05:58 RBC 2.60 M/mm3 (3.65-5.03) L 11/30/18 05:58 Hgb 7.3 gm/dl (11.8-15.2) L 11/30/18 05:58 Hct 21.8 % (35.5-45.6) L 11/30/18 05:58 MCV 84 fl (84-94) 11/30/18 05:58 MCH 28 pg (28-32) 11/30/18 05:58 MCHC 34 % (32-34) 11/30/18 05:58 RDW 18.6 % (13.2-15.2) H 11/30/18 05:58 Plt Count 119 K/mm3 (140-440) L 11/30/18 05:58 Lymph % (Auto) 22.4 % (13.4-35.0) 11/23/18 06:48 Gem % (Auto) 8.7 % (0.0-7.3) H 11/23/18 06:48 Eos % (Auto) 4.5 % (0.0-4.3) H 11/23/18 06:48 Baso % (Auto) 0.6 % (0.0-1.8) 11/23/18 06:48 Lymph # 1.7 K/mm3 (1.2-5.4) 11/23/18 06:48 Gem # 0.7 K/mm3 (0.0-0.8) 11/23/18 06:48 Eos # 0.3 K/mm3 (0.0-0.4) 11/23/18 06:48 Baso # 0.0 K/mm3 (0.0-0.1) 11/23/18 06:48 Add Manual Diff Complete 11/13/18 14:00 Total Counted 100 11/13/18 14:00 Seg Neutrophils % 63.8 % (40.0-70.0) 11/23/18 06:48 Seg Neuts % (Manual) 87.0 % (40.0-70.0) H 11/13/18 14:00 0 % 11/13/18 14:00 5.0 % (13.4-35.0) L 11/13/18 14:00 Reactive Lymphs % (Man) 0 % 11/13/18 14:00 1.0 % (0.0-7.3) 11/13/18 14:00 7.0 % (0.0-4.3) H 11/13/18 14:00 0 % (0.0-1.8) 11/13/18 14:00 0 % 11/13/18 14:00 0 % 11/13/18 14:00 0 % 11/13/18 14:00 0 % 11/13/18 14:00 Nucleated RBC % Not Reportable 11/13/18 14:00 Seg Neutrophils # 5.0 K/mm3 (1.8-7.7) 11/23/18 06:48 Seg Neutrophils # Man 3.3 K/mm3 (1.8-7.7) 11/13/18 14:00 Band Neutrophils # 0.0 K/mm3 11/13/18 14:00 0.2 K/mm3 (1.2-5.4) L 11/13/18 14:00 Abs React Lymphs (Man) 0.0 K/mm3 11/13/18 14:00 0.0 K/mm3 (0.0-0.8) 11/13/18 14:00 0.3 K/mm3 (0.0-0.4) 11/13/18 14:00 0.0 K/mm3 (0.0-0.1) 11/13/18 14:00 0.0 K/mm3 11/13/18 14:00 0.0 K/mm3 11/13/18 14:00 0.0 K/mm3 11/13/18 14:00 Blast Cells # 0.0 K/mm3 11/13/18 14:00 WBC Morphology Not Reportable 11/13/18 14:00 Hypersegmented Neuts Not Reportable 11/13/18 14:00 Hyposegmented Neuts Not Reportable 11/13/18 14:00 Hypogranular Neuts Not Reportable 11/13/18 14:00 Not Reportable 11/13/18 14:00 Not Reportable 11/13/18 14:00 Not Reportable 11/13/18 14:00 Not Reportable 11/13/18 14:00 Not Reportable 11/13/18 14:00 Not Reportable 11/13/18 14:00 Consistent w auto 11/13/18 14:00 Not Reportable 11/13/18 14:00 Plt Clumps, EDTA Not Reportable 11/13/18 14:00 Not Reportable 11/13/18 14:00 Not Reportable 11/13/18 14:00 Not Reportable 11/13/18 14:00 Plt Morphology Comment Not Reportable 11/13/18 14:00 RBC Morphology Not Reportable 11/13/18 14:00 Dimorphic RBCs Not Reportable 11/13/18 14:00 Few 11/13/18 14:00 Not Reportable 11/13/18 14:00 Few 11/13/18 14:00 1+ 11/13/18 14:00 Not Reportable 11/13/18 14:00 Not Reportable 11/13/18 14:00 Few 11/13/18 14:00 Not Reportable 11/13/18 14:00 Not Reportable 11/13/18 14:00 Not Reportable 11/13/18 14:00 Not Reportable 11/13/18 14:00 Not Reportable 11/13/18 14:00 Not Reportable 11/13/18 14:00 Not Reportable 11/13/18 14:00 Not Reportable 11/13/18 14:00 Not Reportable 11/13/18 14:00 Not Reportable 11/13/18 14:00 Not Reportable 11/13/18 14:00 Not Reportable 11/13/18 14:00 Acanthocytes (Spur) Not Reportable 11/13/18 14:00 Rouleaux Not Reportable 11/13/18 14:00 Not Reportable 11/13/18 14:00 Not Reportable 11/13/18 14:00 Not Reportable 11/13/18 14:00 Not Reportable 11/13/18 14:00 Hem Pathologist Commnt No 11/13/18 14:00 POC ABG pH 7.414 (7.35-7.45) 11/23/18 05:26 ABG pH 7.367 pH Units (7.350-7.450) 11/24/18 20:50 POC ABG pCO2 35.8 (35-45) 11/23/18 05:26 ABG pCO2 45.8 mm Hg 11/24/18 20:50 POC ABG pO2 93 (80-105) 11/23/18 05:26 ABG pO2 89.9 mm Hg (80.0-90.0) 11/24/18 20:50 POC ABG HCO3 22.9 (22-26 mml/L) 11/23/18 05:26 ABG HCO3 25.7 mmol/L (20.0-26.0) 11/24/18 20:50 POC ABG Total CO2 24 (23-27mmol/L) 11/23/18 05:26 POC ABG O2 Sat 97 11/23/18 05:26 ABG O2 Saturation 97.1 % (95.0-99.0) 11/24/18 20:50 ABG O2 Content 6.4 (0.0-44) 11/24/18 20:50 POC ABG Base Excess -2 ((-2) - (+3)mmol/L) 11/23/18 05:26 ABG Base Excess 0.4 mmol/L (-2.0-3.0) 11/24/18 20:50 ABG Hemoglobin 8.2 gm/dl (14.0-18.0) L 11/24/18 20:50 ABG Carboxyhemoglobin 1.8 % (0.0-5.0) 11/24/18 20:50 ABG Methemoglobin 0.5 % (0.0-1.5) 11/24/18 20:50 94.8 % (95.0-99.0) L 11/24/18 20:50 28 % 11/24/18 20:50 Sodium 142 mmol/L (137-145) 11/30/18 05:58 Potassium 4.2 mmol/L (3.6-5.0) 11/30/18 05:58 Chloride 103.0 mmol/L (98-107) 11/30/18 05:58 Carbon Dioxide 31 mmol/L (22-30) H 11/30/18 05:58 12 mmol/L 11/30/18 05:58 BUN 23 mg/dL (9-20) H 11/30/18 05:58 0.4 mg/dL (0.8-1.5) L 11/30/18 05:58 Estimated GFR > 60 ml/min 11/30/18 05:58 58 % 11/30/18 05:58 Glucose 121 mg/dL (75-100) H 11/30/18 05:58 POC Glucose 134 (70-105) H 11/30/18 05:23 Lactic Acid 1.60 mmol/L (0.7-2.0) 11/14/18 12:50 Calcium 8.1 mg/dL (8.4-10.2) L 11/30/18 05:58 Magnesium 2.00 mg/dL (1.7-2.3) 11/26/18 05:50 0.70 mg/dL (0.1-1.2) 11/13/18 14:00 AST 154 units/L (5-40) H 11/13/18 14:00 ALT 134 units/L (7-56) H 11/13/18 14:00 586 units/L (35-129) H 11/13/18 14:00 510 units/L (55-170) H 11/13/18 14:49 CK-MB (CK-2) 4.4 ng/mL (0.0-4.0) H 11/13/18 14:49 CK-MB (CK-2) Rel Index 0.8 (0-4) 11/13/18 14:49 0.348 ng/mL (0.00-0.029) H* 11/13/18 14:49 NT-Pro-B Natriuret Pep 3679 pg/mL (0-900) H 11/13/18 14:49 6.8 g/dL (6.3-8.2) 11/13/18 14:00 1.2 g/dL (3.9-5) L 11/13/18 14:00 0.2 % 11/13/18 14:00 Triglycerides 284 mg/dL (2-149) H 11/13/18 14:49 Cholesterol 56 mg/dL (50-199) 11/13/18 14:49 4 mg/dL (50-130) L 11/13/18 14:49 7 mg/dL (40-59) L 11/13/18 14:49 8.00 % 11/13/18 14:49 Yellow (Yellow) 11/13/18 14:44 Slightly-cloudy (Clear) 11/13/18 14:44 6.0 (5.0-7.0) 11/13/18 14:44 Ur Specific [place] 1.017 (1.003-1.030) 11/13/18 14:44 30 mg/dl mg/dL (Negative) 11/13/18 14:44 Neg mg/dL (Negative) 11/13/18 14:44 Neg mg/dL (Negative) 11/13/18 14:44 Neg (Negative) 11/13/18 14:44 Neg (Negative) 11/13/18 14:44 Neg (Negative) 11/13/18 14:44 4.0 mg/dL (<2.0) 11/13/18 14:44 Ur Leukocyte Esterase Mod (Negative) 11/13/18 14:44 36.0 /HPF (0.0-6.0) H 11/13/18 14:44 21.0 /HPF (0.0-6.0) 11/13/18 14:44 1+ /HPF (Negative) 11/13/18 14:44 Few /HPF 11/13/18 14:44 3+ /HPF 11/13/18 14:44 Hepatitis A IgM Ab Non-reactive (NonReactive) 11/14/18 02:00 Hep Bs Antigen Non-reactive (Negative) 11/14/18 02:00 Hep B Core IgM Ab Non-reactive (NonReactive) 11/14/18 02:00 Non-reactive (NonReactive) 11/14/18 02:00 HIV 1&2 Antibody Rapid Non react (Non React) 11/14/18 02:00 Non react (Non React) 11/14/18 02:00 Blood Type O POSITIVE 11/13/18 14:49 Antibody Screen Negative 11/13/18 14:49 Crossmatch See Detail 11/13/18 14:49 Active Medications - Current Medications Current Medications: Generic Name Dose Route Start Last Admin Trade Name Freq PRN Reason Stop Dose Admin Albuterol 2.5 mg 11/19/18 17:21 Proventil IH Q6HRT PRN Shortness Of Breath Amlodipine Besylate 5 mg 11/20/18 13:00 11/29/18 10:37 Norvasc PO 5 mg QDAY LENCHO Administration Lipase/Protease/Amylase 1 each 11/14/18 14:20 Pancregarrett Alas 10,500 Unit FEEDTUBE PRN PRN For Clogged Feeding Tube Glycopyrrolate 2 mg 11/25/18 14:00 11/30/18 05:44 Robinul PO 2 mg Q8HR LENCHO Administration Heparin Sodium (Porcine) 5,000 unit 11/14/18 03:30 11/29/18 22:16 Heparin SUB-Q 5,000 unit Q12HR LENCHO Administration Hydralazine HCl 10 mg 11/20/18 12:30 11/20/18 12:26 Apresoline IV 10 mg Q4H PRN Administration Blood Pressure Hydrophilic Ointment 1 applic 11/24/18 08:23 Vaseline Lip Therapy TP Q2HR PRN Dry Lips Insulin Glargine 20 units 11/23/18 22:00 11/29/18 23:25 Lantus SUB-Q 20 units QHS LENCHO Administration Insulin Human Lispro 0 unit 11/14/18 06:00 11/30/18 05:42 Humalog SUB-Q Not Given Q6HR [facility] Protocol Lansoprazole 30 mg 11/16/18 10:00 11/29/18 10:35 Prevacid Solutab FEEDTUBE 30 mg QDAY LENCHO Administration Multi-Ingred Cream/Lotion/Oil/Oint 1 applic 11/24/18 08:23 11/29/18 10:37 Artificial Tears Ophth Oint OU 1 applic Q4HR PRN Administration Dry Eye(s) Scopolamine 1 each 11/19/18 15:00 11/28/18 14:21 Transderm-Scop TD 1 each Q3D LENCHO Administration Simple Syrup 15 ml 11/14/18 14:20 Simple Syrup FEEDTUBE PRN PRN Hypoglycemia Simple Syrup 30 ml 11/14/18 14:20 Simple Syrup FEEDTUBE PRN PRN Hypoglycemia Sodium Bicarbonate 325 mg 11/14/18 14:20 Sodium Bicarbonate FEEDTUBE PRN PRN For Clogged Feeding Tube Sodium Hypochlorite 1 applic 11/16/18 13:00 11/29/18 22:15 Dakin's Half Strength TP 1 applicatio BID LENCHO Administration Nutrition/Malnutrition Assess - Dietary Evaluation Nutrition/Malnutrition Findings: Nutrition Notes Start: 11/14/18 10:33 Freq: Status: Active Protocol: Document 11/24/18 10:39 LM (Rec: 11/24/18 10:58 LM [id number]) Nutrition Notes Initial or Follow up Reassessment Current Diagnosis Acute Kidney Injury,Decubitus( Pressure Ulcer),Diabetes, Sepsis,Hypertension,Heart Failure,Respiratory Failure, Stroke Other Pertinent Diagnosis sacral wound, UTI, Dysphagia, Chronic encephalopathy Current Diet Vital AF 1.2 at 60 ml/hr Labs/Tests BG 137 Pertinent Medications Reviewed Height 5 ft 9 in Weight 96 kg [place] Body Weight (kg) 72.72 BMI 31.2 Subjective/Other Information TF running at 60 ml/hr. Pt tolerating TF. Percent of energy/protein needs met: 93%/100% Burn Absent Trauma Absent #1 Nutrition Diagnosis Inadequate oral intake Diagnosis Progress(for reassessment Continues documentation) Is patient on ventilator? No Is Patient Ambulatory and/or Out of Bed No REE-([facility] [place]confined [place] bed) [phone] Calculation Used for Recommendations [facility] Additional Notes Pro needs 1.2-2g/k-168g/ day Fluid needs 1ml/kcal Nutrition Intervention Change Diet Order: Continue TF Nutrition Support: Vital AF 1.2 at 60ml/hr with 100ml water flush q4h. Kcal 1,728 Protein (gm) 108 Carbohydrates (gm) 159 Fat (gm) 78 Fluid (mL) 1,168 Fiber (gm) 7 Goal #1 TF to meet at least 75% of energy and protein needs Anticipated Discharge Needs: Continue TF Follow-Up By: 12/01/18 Additional Comments F/U for TF tolerance and rate
[2018-11-30] MEDS: NORVASC PO SCH (09:07)
[2018-11-30] MEDS: PREVACID SOLUTAB FEEDTUBE SCH (09:07)
[2018-11-30] MEDS: HEPARIN SUB-Q SCH ×2 (09:07→22:38)
[2018-11-30] MEDS: ARTIFICIAL TEARS OPHTH OINT OU PRN (09:08)
[2018-11-30] MEDS: DAKIN'S HALF STRENGTH TP SCH ×2 (09:09→22:06)
--- NOTE | 2018-11-30 16:08 | Progress Note ---
Assessment and Plan -Acute on chronic hypoxic respiratory failures/p trach to ATP -Severe sepsis with shock, off vasopressors -VRE bacteremia -UTI -Large sacral decubitus ulcer -Acute on chronic metabolic encephalopathy -Orophargyngeal dysphagia s/p PEG -h/o CVAs -Transaminitis probably secondary to hypotension -Type 2 DM -Hypernatremia, improved - Follow BMP in am and further adjust free water administration - prn CXR and ABG --Supportive transfusions as indicated, to keep HgB>7g/dL -Trach care, airway clearance and secretion management -Accuchecks with glycemic control, continue with insulin infusion per protocol -Douglass catheter for accurate intake and output monitoring in this critically ill patient with history of chronic douglass/urinary retention/sacral decubitus ulcer -Avoid nephrotoxins -VTE prophylaxis -Stress ulcer prophylaxis -Antibiotics per ID, -Mobility and off loading for sacral decubitus -Wound care -Optimize nutrition to help promote wound healing -Vasopressor support as indicated for MAP<65, with blood pressure unresponsive to volume resuscitation -Continue to monitor hemodynamics CONDITION: POOR PROGNOSIS; POOR CODE STATUS: FULL Discussed care plan with RT and RN. Discharge planning Subjective Date of service: 11/30/18 Principal diagnosis: Severe sepsis with shock; Ac and ch resp failure; Metabolic encephalopathy Interval history: Patient known to our service. Per family request, care is being transferred back to us Patient is seen today for: Severe sepsis with septic shock; Acute and chronic respiratory failure on MVS; Acute and chronic metabolic encephalopathy; Seen and examined at bedside; 24hour events reviewed; nursing and respiratory care staff consulted; resting peacefully in bed; tolerating ATP, remains remains off vasopressor support; Vitals, labs, medications, chart reviewed. AMS is persistent; tolerating tube feeds; afebrile; no new issues Objective Vital Signs - 12hr 11/30/18 11/30/18 11/30/18 05:00 06:00 07:00 Temperature Pulse Rate 79 80 78 Respiratory 13 13 11 L Rate Blood Pressure 140/68 153/70 146/63 O2 Sat by Pulse 97 98 98 Oximetry 11/30/18 11/30/18 11/30/18 08:00 08:58 09:00 Temperature 98.1 F Pulse Rate 81 84 Respiratory 13 14 Rate Blood Pressure 144/71 147/81 O2 Sat by Pulse 97 100 100 Oximetry 11/30/18 11/30/18 09:07 12:00 Temperature 97.8 F Pulse Rate 83 Respiratory Rate Blood Pressure 159/66 O2 Sat by Pulse Oximetry Constitutional: no acute distress, other (elderly looking AAM , unresponsive; trach in place to ATP, moderate secretions) Eyes: non-icteric ENT: oropharynx moist Neck: supple, no lymphadenopathy, no JVD, other (midline trach) Effort: normal Ascultation: Bilateral: diminished breath sounds, rales, rhonchi (scant in bases) Percussion: Bilateral: not dull Cardiovascular: regular rate and rhythm, other (S1,S2) Gastrointestinal: normoactive bowel sounds, soft, non-distended, other (PEG in place, chronic douglass catheter, scrotal edema) Integumentary: decubitus ulcer (see wound care notes) Extremities: no cyanosis, pink and warm, pulses normal, edema (2+) Neurologic: unable to assess, other (encephalopathic, unresponsive) Psychiatric: other (unable to assess) CBC and BMP: 11/30/18 05:58 11/30/18 05:58 ABG, PT/INR, D-dimer: ABG POC ABG pH 7.414 (7.35-7.45) 11/23/18 05:26 ABG pH 7.367 pH Units (7.350-7.450) 11/24/18 20:50 POC ABG pCO2 35.8 (35-45) 11/23/18 05:26 ABG pCO2 45.8 mm Hg 11/24/18 20:50 POC ABG pO2 93 (80-105) 11/23/18 05:26 ABG pO2 89.9 mm Hg (80.0-90.0) 11/24/18 20:50 POC ABG HCO3 22.9 (22-26 mml/L) 11/23/18 05:26 POC ABG Total CO2 24 (23-27mmol/L) 11/23/18 05:26 POC ABG O2 Sat 97 11/23/18 05:26 ABG O2 Saturation 97.1 % (95.0-99.0) 11/24/18 20:50 Abnormal lab findings: Abnormal Labs 11/13/18 11/13/18 11/13/18 03:30 14:00 14:00 WBC 3.8 L RBC 2.80 L Hgb 7.4 L Hct 22.9 L MCV 82 L MCH 27 L MCHC RDW 19.0 H Plt Count Lymph % (Auto) [place] % (Auto) Eos % (Auto) [place] # Seg Neutrophils % Seg Neuts % (Manual) 87.0 H Lymphocytes % (Manual) 5.0 L Eosinophils % (Manual) 7.0 H Seg Neutrophils # Lymphocytes # (Manual) 0.2 L POC ABG pH POC ABG pO2 ABG pO2 ABG Base Excess ABG Hemoglobin Oxyhemoglobin Sodium 147 H Potassium Chloride Carbon Dioxide 33 H BUN 50 H Creatinine Glucose 193 H POC Glucose Lactic Acid 3.70 H* Calcium 8.1 L Magnesium AST 154 H ALT 134 H Alkaline Phosphatase 586 H Total Creatine Kinase CK-MB (CK-2) Troponin T NT-Pro-B Natriuret Pep Albumin 1.2 L Triglycerides LDL Cholesterol Direct HDL Cholesterol Urine WBC (Auto) Crossmatch 11/13/18 11/13/18 11/13/18 14:00 14:44 14:49 WBC RBC Hgb Hct MCV MCH MCHC RDW Plt Count Lymph % (Auto) [place] % (Auto) Eos % (Auto) [place] # Seg Neutrophils % Seg Neuts % (Manual) Lymphocytes % (Manual) Eosinophils % (Manual) Seg Neutrophils # Lymphocytes # (Manual) POC ABG pH POC ABG pO2 ABG pO2 ABG Base Excess ABG Hemoglobin Oxyhemoglobin Sodium Potassium Chloride Carbon Dioxide BUN Creatinine Glucose POC Glucose Lactic Acid 2.60 H* Calcium Magnesium AST ALT Alkaline Phosphatase Total Creatine Kinase 510 H CK-MB (CK-2) 4.4 H Troponin T 0.348 H* NT-Pro-B Natriuret Pep 3679 H Albumin Triglycerides 284 H LDL Cholesterol Direct 4 L HDL Cholesterol 7 L Urine WBC (Auto) 36.0 H Crossmatch 11/13/18 11/13/18 11/13/18 14:49 14:49 14:52 WBC RBC Hgb Hct MCV MCH MCHC RDW Plt Count Lymph % (Auto) [place] % (Auto) Eos % (Auto) [place] # Seg Neutrophils % Seg Neuts % (Manual) Lymphocytes % (Manual) Eosinophils % (Manual) Seg Neutrophils # Lymphocytes # (Manual) POC ABG pH POC ABG pO2 ABG pO2 ABG Base Excess ABG Hemoglobin Oxyhemoglobin Sodium Potassium Chloride Carbon Dioxide BUN Creatinine Glucose POC Glucose 205 H Lactic Acid 3.90 H* Calcium Magnesium AST ALT Alkaline Phosphatase Total Creatine Kinase CK-MB (CK-2) Troponin T NT-Pro-B Natriuret Pep Albumin Triglycerides LDL Cholesterol Direct HDL Cholesterol Urine WBC (Auto) Crossmatch See Detail 11/13/18 11/13/18 11/13/18 16:58 17:13 19:46 WBC RBC Hgb Hct MCV MCH MCHC RDW Plt Count Lymph % (Auto) [place] % (Auto) Eos % (Auto) [place] # Seg Neutrophils % Seg Neuts % (Manual) Lymphocytes % (Manual) Eosinophils % (Manual) Seg Neutrophils # Lymphocytes # (Manual) POC ABG pH 7.573 H POC ABG pO2 ABG pO2 ABG Base Excess ABG Hemoglobin Oxyhemoglobin Sodium Potassium Chloride Carbon Dioxide BUN Creatinine Glucose POC Glucose Lactic Acid 3.90 H* 4.40 H* Calcium Magnesium AST ALT Alkaline Phosphatase Total Creatine Kinase CK-MB (CK-2) Troponin T NT-Pro-B Natriuret Pep Albumin Triglycerides LDL Cholesterol Direct HDL Cholesterol Urine WBC (Auto) Crossmatch 11/13/18 11/14/18 11/14/18 21:34 04:50 05:23 WBC RBC Hgb Hct MCV MCH MCHC RDW Plt Count Lymph % (Auto) [place] % (Auto) Eos % (Auto) [place] # Seg Neutrophils % Seg Neuts % (Manual) Lymphocytes % (Manual) Eosinophils % (Manual) Seg Neutrophils # Lymphocytes # (Manual) POC ABG pH POC ABG pO2 ABG pO2 120.8 H ABG Base Excess ABG Hemoglobin 10.9 L Oxyhemoglobin Sodium Potassium Chloride Carbon Dioxide BUN Creatinine Glucose POC Glucose 263 H Lactic Acid 4.50 H* Calcium Magnesium AST ALT Alkaline Phosphatase Total Creatine Kinase CK-MB (CK-2) Troponin T NT-Pro-B Natriuret Pep Albumin Triglycerides LDL Cholesterol Direct HDL Cholesterol Urine WBC (Auto) Crossmatch 11/14/18 11/14/18 11/14/18 05:46 08:02 12:42 WBC RBC Hgb Hct MCV MCH MCHC RDW Plt Count Lymph % (Auto) [place] % (Auto) Eos % (Auto) [place] # Seg Neutrophils % Seg Neuts % (Manual) Lymphocytes % (Manual) Eosinophils % (Manual) Seg Neutrophils # Lymphocytes # (Manual) POC ABG pH 7.463 H POC ABG pO2 136 H ABG pO2 ABG Base Excess ABG Hemoglobin Oxyhemoglobin Sodium Potassium Chloride Carbon Dioxide BUN Creatinine Glucose POC Glucose 213 H Lactic Acid 2.70 H* Calcium Magnesium AST ALT Alkaline Phosphatase Total Creatine Kinase CK-MB (CK-2) Troponin T NT-Pro-B Natriuret Pep Albumin Triglycerides LDL Cholesterol Direct HDL Cholesterol Urine WBC (Auto) Crossmatch 11/14/18 11/14/18 11/14/18 14:17 14:17 15:50 WBC 13.1 H 13.1 H RBC 2.36 L 2.36 L Hgb 6.1 L 6.1 L Hct 19.6 L* 19.4 L* MCV 83 L 82 L MCH 26 L 26 L MCHC 31 L 31 L RDW 19.4 H 19.3 H Plt Count Lymph % (Auto) [place] % (Auto) Eos % (Auto) [place] # Seg Neutrophils % Seg Neuts % (Manual) Lymphocytes % (Manual) Eosinophils % (Manual) Seg Neutrophils # Lymphocytes # (Manual) POC ABG pH POC ABG pO2 ABG pO2 ABG Base Excess ABG Hemoglobin Oxyhemoglobin Sodium 148 H Potassium Chloride 110.3 H Carbon Dioxide BUN 56 H Creatinine Glucose 203 H POC Glucose Lactic Acid Calcium 7.6 L Magnesium AST ALT Alkaline Phosphatase Total Creatine Kinase CK-MB (CK-2) Troponin T NT-Pro-B Natriuret Pep Albumin Triglycerides LDL Cholesterol Direct HDL Cholesterol Urine WBC (Auto) Crossmatch 11/14/18 11/14/18 11/15/18 18:19 23:52 05:10 WBC 16.2 H RBC 3.22 L Hgb 8.8 L Hct 26.8 L D MCV 83 L MCH 27 L MCHC RDW 16.8 H Plt Count Lymph % (Auto) [place] % (Auto) Eos % (Auto) [place] # Seg Neutrophils % Seg Neuts % (Manual) Lymphocytes % (Manual) Eosinophils % (Manual) Seg Neutrophils # Lymphocytes # (Manual) POC ABG pH POC ABG pO2 ABG pO2 ABG Base Excess ABG Hemoglobin Oxyhemoglobin Sodium Potassium Chloride Carbon Dioxide BUN Creatinine Glucose POC Glucose 213 H 242 H Lactic Acid Calcium Magnesium AST ALT Alkaline Phosphatase Total Creatine Kinase CK-MB (CK-2) Troponin T NT-Pro-B Natriuret Pep Albumin Triglycerides LDL Cholesterol Direct HDL Cholesterol Urine WBC (Auto) Crossmatch 11/15/18 11/15/18 11/15/18 05:10 05:36 11:15 WBC RBC Hgb Hct MCV MCH MCHC RDW Plt Count Lymph % (Auto) [place] % (Auto) Eos % (Auto) [place] # Seg Neutrophils % Seg Neuts % (Manual) Lymphocytes % (Manual) Eosinophils % (Manual) Seg Neutrophils # Lymphocytes # (Manual) POC ABG pH POC ABG pO2 ABG pO2 ABG Base Excess ABG Hemoglobin Oxyhemoglobin Sodium 148 H Potassium 3.5 L Chloride 112.8 H Carbon Dioxide BUN 51 H Creatinine Glucose 154 H POC Glucose 143 H 139 H Lactic Acid Calcium 7.8 L Magnesium AST ALT Alkaline Phosphatase Total Creatine Kinase CK-MB (CK-2) Troponin T NT-Pro-B Natriuret Pep Albumin Triglycerides LDL Cholesterol Direct HDL Cholesterol Urine WBC (Auto) Crossmatch 11/15/18 11/15/18 11/15/18 12:00 18:28 20:56 WBC RBC Hgb Hct MCV MCH MCHC RDW Plt Count Lymph % (Auto) [place] % (Auto) Eos % (Auto) [place] # Seg Neutrophils % Seg Neuts % (Manual) Lymphocytes % (Manual) Eosinophils % (Manual) Seg Neutrophils # Lymphocytes # (Manual) POC ABG pH POC ABG pO2 ABG pO2 ABG Base Excess ABG Hemoglobin Oxyhemoglobin Sodium 148 H Potassium 3.2 L Chloride 113.0 H Carbon Dioxide BUN 44 H Creatinine Glucose 144 H POC Glucose 159 H 150 H Lactic Acid Calcium 7.7 L Magnesium AST ALT Alkaline Phosphatase Total Creatine Kinase CK-MB (CK-2) Troponin T NT-Pro-B Natriuret Pep Albumin Triglycerides LDL Cholesterol Direct HDL Cholesterol Urine WBC (Auto) Crossmatch 11/15/18 11/16/18 11/16/18 23:32 03:40 03:45 WBC 16.1 H RBC 3.30 L Hgb 8.9 L Hct 27.9 L MCV MCH 27 L MCHC RDW 17.5 H Plt Count Lymph % (Auto) [place] % (Auto) Eos % (Auto) [place] # Seg Neutrophils % Seg Neuts % (Manual) Lymphocytes % (Manual) Eosinophils % (Manual) Seg Neutrophils # Lymphocytes # (Manual) POC ABG pH POC ABG pO2 ABG pO2 147.0 H ABG Base Excess ABG Hemoglobin 12.0 L Oxyhemoglobin Sodium Potassium Chloride Carbon Dioxide BUN Creatinine Glucose POC Glucose 131 H Lactic Acid Calcium Magnesium AST ALT Alkaline Phosphatase Total Creatine Kinase CK-MB (CK-2) Troponin T NT-Pro-B Natriuret Pep Albumin Triglycerides LDL Cholesterol Direct HDL Cholesterol Urine WBC (Auto) Crossmatch 11/16/18 11/16/18 11/16/18 03:45 05:15 15:14 WBC RBC Hgb Hct MCV MCH MCHC RDW Plt Count Lymph % (Auto) [place] % (Auto) Eos % (Auto) [place] # Seg Neutrophils % Seg Neuts % (Manual) Lymphocytes % (Manual) Eosinophils % (Manual) Seg Neutrophils # Lymphocytes # (Manual) POC ABG pH POC ABG pO2 ABG pO2 ABG Base Excess ABG Hemoglobin Oxyhemoglobin Sodium 149 H Potassium 3.5 L Chloride 116.2 H Carbon Dioxide 21 L BUN 41 H Creatinine Glucose 146 H POC Glucose 155 H 215 H Lactic Acid Calcium 7.7 L Magnesium AST ALT Alkaline Phosphatase Total Creatine Kinase CK-MB (CK-2) Troponin T NT-Pro-B Natriuret Pep Albumin Triglycerides LDL Cholesterol Direct HDL Cholesterol Urine WBC (Auto) Crossmatch 11/16/18 11/16/18 11/17/18 18:20 23:49 04:49 WBC 12.1 H RBC 3.34 L Hgb 9.0 L Hct 28.1 L MCV MCH 27 L MCHC RDW 17.5 H Plt Count Lymph % (Auto) [place] % (Auto) Eos % (Auto) [place] # Seg Neutrophils % Seg Neuts % (Manual) Lymphocytes % (Manual) Eosinophils % (Manual) Seg Neutrophils # Lymphocytes # (Manual) POC ABG pH POC ABG pO2 ABG pO2 ABG Base Excess ABG Hemoglobin Oxyhemoglobin Sodium Potassium Chloride Carbon Dioxide BUN Creatinine Glucose POC Glucose 230 H 189 H Lactic Acid Calcium Magnesium AST ALT Alkaline Phosphatase Total Creatine Kinase CK-MB (CK-2) Troponin T NT-Pro-B Natriuret Pep Albumin Triglycerides LDL Cholesterol Direct HDL Cholesterol Urine WBC (Auto) Crossmatch 11/17/18 11/17/18 11/17/18 04:49 05:45 14:16 WBC RBC Hgb Hct MCV MCH MCHC RDW Plt Count Lymph % (Auto) [place] % (Auto) Eos % (Auto) [place] # Seg Neutrophils % Seg Neuts % (Manual) Lymphocytes % (Manual) Eosinophils % (Manual) Seg Neutrophils # Lymphocytes # (Manual) POC ABG pH POC ABG pO2 ABG pO2 ABG Base Excess ABG Hemoglobin Oxyhemoglobin Sodium 150 H Potassium 3.2 L Chloride 118.9 H Carbon Dioxide 20 L BUN 38 H Creatinine 0.7 L Glucose 164 H POC Glucose 181 H 172 H Lactic Acid Calcium 7.7 L Magnesium AST ALT Alkaline Phosphatase Total Creatine Kinase CK-MB (CK-2) Troponin T NT-Pro-B Natriuret Pep Albumin Triglycerides LDL Cholesterol Direct HDL Cholesterol Urine WBC (Auto) Crossmatch 11/17/18 11/17/18 11/18/18 23:36 Unknown 04:10 WBC RBC Hgb Hct MCV MCH MCHC RDW Plt Count Lymph % (Auto) [place] % (Auto) Eos % (Auto) [place] # Seg Neutrophils % Seg Neuts % (Manual) Lymphocytes % (Manual) Eosinophils % (Manual) Seg Neutrophils # Lymphocytes # (Manual) POC ABG pH POC ABG pO2 ABG pO2 105.9 H 101.8 H ABG Base Excess -2.3 L -3.2 L ABG Hemoglobin 11.5 L 10.2 L Oxyhemoglobin Sodium Potassium Chloride Carbon Dioxide BUN Creatinine Glucose POC Glucose 214 H Lactic Acid Calcium Magnesium AST ALT Alkaline Phosphatase Total Creatine Kinase CK-MB (CK-2) Troponin T NT-Pro-B Natriuret Pep Albumin Triglycerides LDL Cholesterol Direct HDL Cholesterol Urine WBC (Auto) Crossmatch 11/18/18 11/18/18 11/18/18 04:37 04:37 05:36 WBC RBC 3.10 L Hgb 8.5 L Hct 26.8 L MCV MCH 27 L MCHC RDW 17.8 H Plt Count Lymph % (Auto) 12.8 L [place] % (Auto) 8.5 H Eos % (Auto) [place] # 0.9 H Seg Neutrophils % 75.8 H Seg Neuts % (Manual) Lymphocytes % (Manual) Eosinophils % (Manual) Seg Neutrophils # 8.0 H Lymphocytes # (Manual) POC ABG pH POC ABG pO2 ABG pO2 ABG Base Excess ABG Hemoglobin Oxyhemoglobin Sodium 148 H Potassium 3.3 L Chloride 118.3 H Carbon Dioxide 20 L BUN 32 H Creatinine 0.7 L Glucose 154 H POC Glucose 171 H Lactic Acid Calcium 7.4 L Magnesium AST ALT Alkaline Phosphatase Total Creatine Kinase CK-MB (CK-2) Troponin T NT-Pro-B Natriuret Pep Albumin Triglycerides LDL Cholesterol Direct HDL Cholesterol Urine WBC (Auto) Crossmatch 11/18/18 11/18/18 11/18/18 12:10 17:27 23:56 WBC RBC Hgb Hct MCV MCH MCHC RDW Plt Count Lymph % (Auto) [place] % (Auto) Eos % (Auto) [place] # Seg Neutrophils % Seg Neuts % (Manual) Lymphocytes % (Manual) Eosinophils % (Manual) Seg Neutrophils # Lymphocytes # (Manual) POC ABG pH POC ABG pO2 ABG pO2 ABG Base Excess ABG Hemoglobin Oxyhemoglobin Sodium Potassium Chloride Carbon Dioxide BUN Creatinine Glucose POC Glucose 244 H 239 H 241 H Lactic Acid Calcium Magnesium AST ALT Alkaline Phosphatase Total Creatine Kinase CK-MB (CK-2) Troponin T NT-Pro-B Natriuret Pep Albumin Triglycerides LDL Cholesterol Direct HDL Cholesterol Urine WBC (Auto) Crossmatch 11/19/18 11/19/18 11/19/18 03:45 04:27 06:37 WBC RBC Hgb Hct MCV MCH MCHC RDW Plt Count Lymph % (Auto) [place] % (Auto) Eos % (Auto) [place] # Seg Neutrophils % Seg Neuts % (Manual) Lymphocytes % (Manual) Eosinophils % (Manual) Seg Neutrophils # Lymphocytes # (Manual) POC ABG pH POC ABG pO2 ABG pO2 95.5 H ABG Base Excess -4.0 L ABG Hemoglobin 5.9 L Oxyhemoglobin Sodium 147 H Potassium Chloride 119.2 H Carbon Dioxide 20 L BUN 28 H Creatinine 0.6 L Glucose 181 H POC Glucose 220 H Lactic Acid Calcium 7.6 L Magnesium AST ALT Alkaline Phosphatase Total Creatine Kinase CK-MB (CK-2) Troponin T NT-Pro-B Natriuret Pep Albumin Triglycerides LDL Cholesterol Direct HDL Cholesterol Urine WBC (Auto) Crossmatch 11/19/18 11/19/18 11/19/18 06:41 11:27 17:31 WBC RBC 3.28 L Hgb 9.0 L Hct 28.2 L MCV MCH MCHC RDW 17.9 H Plt Count Lymph % (Auto) [place] % (Auto) 11.0 H Eos % (Auto) [place] # 1.1 H Seg Neutrophils % Seg Neuts % (Manual) Lymphocytes % (Manual) Eosinophils % (Manual) Seg Neutrophils # Lymphocytes # (Manual) POC ABG pH POC ABG pO2 ABG pO2 ABG Base Excess ABG Hemoglobin Oxyhemoglobin Sodium Potassium Chloride Carbon Dioxide BUN Creatinine Glucose POC Glucose 280 H 300 H Lactic Acid Calcium Magnesium AST ALT Alkaline Phosphatase Total Creatine Kinase CK-MB (CK-2) Troponin T NT-Pro-B Natriuret Pep Albumin Triglycerides LDL Cholesterol Direct HDL Cholesterol Urine WBC (Auto) Crossmatch 11/19/18 11/20/18 11/20/18 23:30 03:03 03:03 WBC RBC 3.04 L Hgb 8.4 L Hct 26.1 L MCV MCH MCHC RDW 18.1 H Plt Count Lymph % (Auto) [place] % (Auto) 11.0 H Eos % (Auto) [place] # 0.9 H Seg Neutrophils % Seg Neuts % (Manual) Lymphocytes % (Manual) Eosinophils % (Manual) Seg Neutrophils # Lymphocytes # (Manual) POC ABG pH POC ABG pO2 ABG pO2 ABG Base Excess ABG Hemoglobin Oxyhemoglobin Sodium 148 H Potassium Chloride 117.4 H Carbon Dioxide BUN 24 H Creatinine 0.6 L Glucose 238 H POC Glucose 251 H Lactic Acid Calcium 7.9 L Magnesium AST ALT Alkaline Phosphatase Total Creatine Kinase CK-MB (CK-2) Troponin T NT-Pro-B Natriuret Pep Albumin Triglycerides LDL Cholesterol Direct HDL Cholesterol Urine WBC (Auto) Crossmatch 11/20/18 11/20/18 11/20/18 04:20 05:15 12:21 WBC RBC Hgb Hct MCV MCH MCHC RDW Plt Count Lymph % (Auto) [place] % (Auto) Eos % (Auto) [place] # Seg Neutrophils % Seg Neuts % (Manual) Lymphocytes % (Manual) Eosinophils % (Manual) Seg Neutrophils # Lymphocytes # (Manual) POC ABG pH POC ABG pO2 ABG pO2 91.3 H ABG Base Excess -2.6 L ABG Hemoglobin 8.3 L Oxyhemoglobin Sodium Potassium Chloride Carbon Dioxide BUN Creatinine Glucose POC Glucose 213 H 318 H Lactic Acid Calcium Magnesium AST ALT Alkaline Phosphatase Total Creatine Kinase CK-MB (CK-2) Troponin T NT-Pro-B Natriuret Pep Albumin Triglycerides LDL Cholesterol Direct HDL Cholesterol Urine WBC (Auto) Crossmatch 11/20/18 11/20/18 11/20/18 18:01 20:50 23:36 WBC RBC Hgb Hct MCV MCH MCHC RDW Plt Count Lymph % (Auto) [place] % (Auto) Eos % (Auto) [place] # Seg Neutrophils % Seg Neuts % (Manual) Lymphocytes % (Manual) Eosinophils % (Manual) Seg Neutrophils # Lymphocytes # (Manual) POC ABG pH POC ABG pO2 ABG pO2 90.8 H ABG Base Excess -2.1 L ABG Hemoglobin 13.4 L Oxyhemoglobin 94.9 L Sodium Potassium Chloride Carbon Dioxide BUN Creatinine Glucose POC Glucose 301 H 290 H Lactic Acid Calcium Magnesium AST ALT Alkaline Phosphatase Total Creatine Kinase CK-MB (CK-2) Troponin T NT-Pro-B Natriuret Pep Albumin Triglycerides LDL Cholesterol Direct HDL Cholesterol Urine WBC (Auto) Crossmatch 11/21/18 11/21/18 11/21/18 03:09 03:09 05:10 WBC RBC 3.05 L Hgb 8.5 L Hct 26.1 L MCV MCH MCHC RDW 18.7 H Plt Count Lymph % (Auto) [place] % (Auto) 12.2 H Eos % (Auto) [place] # 0.9 H Seg Neutrophils % Seg Neuts % (Manual) Lymphocytes % (Manual) Eosinophils % (Manual) Seg Neutrophils # Lymphocytes # (Manual) POC ABG pH POC ABG pO2 ABG pO2 ABG Base Excess ABG Hemoglobin Oxyhemoglobin Sodium 150 H Potassium 3.5 L Chloride 118.5 H Carbon Dioxide BUN 22 H Creatinine 0.6 L Glucose 279 H POC Glucose 307 H Lactic Acid Calcium 7.7 L Magnesium AST ALT Alkaline Phosphatase Total Creatine Kinase CK-MB (CK-2) Troponin T NT-Pro-B Natriuret Pep Albumin Triglycerides LDL Cholesterol Direct HDL Cholesterol Urine WBC (Auto) Crossmatch 11/21/18 11/21/18 11/21/18 11:24 17:23 23:20 WBC RBC Hgb Hct MCV MCH MCHC RDW Plt Count Lymph % (Auto) [place] % (Auto) Eos % (Auto) [place] # Seg Neutrophils % Seg Neuts % (Manual) Lymphocytes % (Manual) Eosinophils % (Manual) Seg Neutrophils # Lymphocytes # (Manual) POC ABG pH POC ABG pO2 ABG pO2 ABG Base Excess ABG Hemoglobin Oxyhemoglobin Sodium Potassium Chloride Carbon Dioxide BUN Creatinine Glucose POC Glucose 324 H 288 H 254 H Lactic Acid Calcium Magnesium AST ALT Alkaline Phosphatase Total Creatine Kinase CK-MB (CK-2) Troponin T NT-Pro-B Natriuret Pep Albumin Triglycerides LDL Cholesterol Direct HDL Cholesterol Urine WBC (Auto) Crossmatch 11/22/18 11/22/18 11/22/18 03:50 05:43 06:10 WBC RBC 2.93 L Hgb 8.1 L Hct 25.2 L MCV MCH MCHC RDW 18.6 H Plt Count Lymph % (Auto) [place] % (Auto) 10.9 H Eos % (Auto) 4.4 H [place] # 0.9 H Seg Neutrophils % Seg Neuts % (Manual) Lymphocytes % (Manual) Eosinophils % (Manual) Seg Neutrophils # Lymphocytes # (Manual) POC ABG pH POC ABG pO2 ABG pO2 94.6 H ABG Base Excess ABG Hemoglobin 6.5 L Oxyhemoglobin Sodium Potassium Chloride Carbon Dioxide BUN Creatinine Glucose POC Glucose 227 H Lactic Acid Calcium Magnesium AST ALT Alkaline Phosphatase Total Creatine Kinase CK-MB (CK-2) Troponin T NT-Pro-B Natriuret Pep Albumin Triglycerides LDL Cholesterol Direct HDL Cholesterol Urine WBC (Auto) Crossmatch 11/22/18 11/22/18 11/22/18 06:10 11:35 17:07 WBC RBC Hgb Hct MCV MCH MCHC RDW Plt Count Lymph % (Auto) [place] % (Auto) Eos % (Auto) [place] # Seg Neutrophils % Seg Neuts % (Manual) Lymphocytes % (Manual) Eosinophils % (Manual) Seg Neutrophils # Lymphocytes # (Manual) POC ABG pH POC ABG pO2 ABG pO2 ABG Base Excess ABG Hemoglobin Oxyhemoglobin Sodium 146 H Potassium 3.3 L Chloride 114.8 H Carbon Dioxide BUN 21 H Creatinine 0.5 L Glucose 214 H POC Glucose 262 H 205 H Lactic Acid Calcium 7.7 L Magnesium AST ALT Alkaline Phosphatase Total Creatine Kinase CK-MB (CK-2) Troponin T NT-Pro-B Natriuret Pep Albumin Triglycerides LDL Cholesterol Direct HDL Cholesterol Urine WBC (Auto) Crossmatch 11/22/18 11/23/18 11/23/18 23:23 05:35 06:48 WBC RBC 2.90 L Hgb 8.0 L Hct 25.1 L MCV MCH MCHC RDW 18.7 H Plt Count Lymph % (Auto) [place] % (Auto) 8.7 H Eos % (Auto) 4.5 H [place] # Seg Neutrophils % Seg Neuts % (Manual) Lymphocytes % (Manual) Eosinophils % (Manual) Seg Neutrophils # Lymphocytes # (Manual) POC ABG pH POC ABG pO2 ABG pO2 ABG Base Excess ABG Hemoglobin Oxyhemoglobin Sodium Potassium Chloride Carbon Dioxide BUN Creatinine Glucose POC Glucose 165 H 140 H Lactic Acid Calcium Magnesium AST ALT Alkaline Phosphatase Total Creatine Kinase CK-MB (CK-2) Troponin T NT-Pro-B Natriuret Pep Albumin Triglycerides LDL Cholesterol Direct HDL Cholesterol Urine WBC (Auto) Crossmatch 11/23/18 11/23/18 11/23/18 06:48 12:00 17:16 WBC RBC Hgb Hct MCV MCH MCHC RDW Plt Count Lymph % (Auto) [place] % (Auto) Eos % (Auto) [place] # Seg Neutrophils % Seg Neuts % (Manual) Lymphocytes % (Manual) Eosinophils % (Manual) Seg Neutrophils # Lymphocytes # (Manual) POC ABG pH POC ABG pO2 ABG pO2 ABG Base Excess ABG Hemoglobin Oxyhemoglobin Sodium 146 H Potassium Chloride 115.4 H Carbon Dioxide BUN Creatinine 0.4 L Glucose 144 H POC Glucose 199 H 207 H Lactic Acid Calcium 7.8 L Magnesium AST ALT Alkaline Phosphatase Total Creatine Kinase CK-MB (CK-2) Troponin T NT-Pro-B Natriuret Pep Albumin Triglycerides LDL Cholesterol Direct HDL Cholesterol Urine WBC (Auto) Crossmatch 11/23/18 11/23/18 11/24/18 22:23 23:57 05:38 WBC RBC Hgb Hct MCV MCH MCHC RDW Plt Count Lymph % (Auto) [place] % (Auto) Eos % (Auto) [place] # Seg Neutrophils % Seg Neuts % (Manual) Lymphocytes % (Manual) Eosinophils % (Manual) Seg Neutrophils # Lymphocytes # (Manual) POC ABG pH POC ABG pO2 ABG pO2 ABG Base Excess ABG Hemoglobin Oxyhemoglobin Sodium Potassium Chloride Carbon Dioxide BUN Creatinine Glucose POC Glucose 186 H 172 H 137 H Lactic Acid Calcium Magnesium AST ALT Alkaline Phosphatase Total Creatine Kinase CK-MB (CK-2) Troponin T NT-Pro-B Natriuret Pep Albumin Triglycerides LDL Cholesterol Direct HDL Cholesterol Urine WBC (Auto) Crossmatch 11/24/18 11/24/18 11/24/18 12:23 17:53 20:50 WBC RBC Hgb Hct MCV MCH MCHC RDW Plt Count Lymph % (Auto) [place] % (Auto) Eos % (Auto) [place] # Seg Neutrophils % Seg Neuts % (Manual) Lymphocytes % (Manual) Eosinophils % (Manual) Seg Neutrophils # Lymphocytes # (Manual) POC ABG pH POC ABG pO2 ABG pO2 ABG Base Excess ABG Hemoglobin 8.2 L Oxyhemoglobin 94.8 L Sodium Potassium Chloride Carbon Dioxide BUN Creatinine Glucose POC Glucose 168 H 170 H Lactic Acid Calcium Magnesium AST ALT Alkaline Phosphatase Total Creatine Kinase CK-MB (CK-2) Troponin T NT-Pro-B Natriuret Pep Albumin Triglycerides LDL Cholesterol Direct HDL Cholesterol Urine WBC (Auto) Crossmatch 11/24/18 11/24/18 11/25/18 21:11 23:46 04:24 WBC RBC 2.78 L Hgb 7.7 L Hct 23.7 L MCV MCH MCHC RDW 18.7 H Plt Count Lymph % (Auto) [place] % (Auto) Eos % (Auto) [place] # Seg Neutrophils % Seg Neuts % (Manual) Lymphocytes % (Manual) Eosinophils % (Manual) Seg Neutrophils # Lymphocytes # (Manual) POC ABG pH POC ABG pO2 ABG pO2 ABG Base Excess ABG Hemoglobin Oxyhemoglobin Sodium Potassium Chloride Carbon Dioxide BUN Creatinine Glucose POC Glucose 190 H 169 H Lactic Acid Calcium Magnesium AST ALT Alkaline Phosphatase Total Creatine Kinase CK-MB (CK-2) Troponin T NT-Pro-B Natriuret Pep Albumin Triglycerides LDL Cholesterol Direct HDL Cholesterol Urine WBC (Auto) Crossmatch 11/25/18 11/25/18 11/25/18 04:24 04:24 05:14 WBC RBC Hgb Hct MCV MCH MCHC RDW Plt Count Lymph % (Auto) [place] % (Auto) Eos % (Auto) [place] # Seg Neutrophils % Seg Neuts % (Manual) Lymphocytes % (Manual) Eosinophils % (Manual) Seg Neutrophils # Lymphocytes # (Manual) POC ABG pH POC ABG pO2 ABG pO2 ABG Base Excess ABG Hemoglobin Oxyhemoglobin Sodium Potassium 3.5 L Chloride 108.1 H Carbon Dioxide BUN Creatinine 0.4 L Glucose 119 H POC Glucose 138 H Lactic Acid Calcium 7.9 L Magnesium 1.50 L AST ALT Alkaline Phosphatase Total Creatine Kinase CK-MB (CK-2) Troponin T NT-Pro-B Natriuret Pep Albumin Triglycerides LDL Cholesterol Direct HDL Cholesterol Urine WBC (Auto) Crossmatch 11/25/18 11/25/18 11/25/18 11:46 17:45 23:39 WBC RBC Hgb Hct MCV MCH MCHC RDW Plt Count Lymph % (Auto) [place] % (Auto) Eos % (Auto) [place] # Seg Neutrophils % Seg Neuts % (Manual) Lymphocytes % (Manual) Eosinophils % (Manual) Seg Neutrophils # Lymphocytes # (Manual) POC ABG pH POC ABG pO2 ABG pO2 ABG Base Excess ABG Hemoglobin Oxyhemoglobin Sodium Potassium Chloride Carbon Dioxide BUN Creatinine Glucose POC Glucose 160 H 107 H 118 H Lactic Acid Calcium Magnesium AST ALT Alkaline Phosphatase Total Creatine Kinase CK-MB (CK-2) Troponin T NT-Pro-B Natriuret Pep Albumin Triglycerides LDL Cholesterol Direct HDL Cholesterol Urine WBC (Auto) Crossmatch 11/26/18 11/26/18 11/26/18 05:43 05:50 05:50 WBC RBC 2.91 L Hgb 8.1 L Hct 25.1 L MCV MCH MCHC RDW 19.4 H Plt Count 127 L Lymph % (Auto) [place] % (Auto) Eos % (Auto) [place] # Seg Neutrophils % Seg Neuts % (Manual) Lymphocytes % (Manual) Eosinophils % (Manual) Seg Neutrophils # Lymphocytes # (Manual) POC ABG pH POC ABG pO2 ABG pO2 ABG Base Excess ABG Hemoglobin Oxyhemoglobin Sodium Potassium Chloride 109.7 H Carbon Dioxide BUN Creatinine 0.4 L Glucose 118 H POC Glucose 142 H Lactic Acid Calcium 8.0 L Magnesium AST ALT Alkaline Phosphatase Total Creatine Kinase CK-MB (CK-2) Troponin T NT-Pro-B Natriuret Pep Albumin Triglycerides LDL Cholesterol Direct HDL Cholesterol Urine WBC (Auto) Crossmatch 11/26/18 11/27/18 11/27/18 12:26 05:35 05:35 WBC RBC 2.99 L Hgb 8.3 L Hct 25.3 L MCV MCH MCHC RDW 18.4 H Plt Count 134 L Lymph % (Auto) [place] % (Auto) Eos % (Auto) [place] # Seg Neutrophils % Seg Neuts % (Manual) Lymphocytes % (Manual) Eosinophils % (Manual) Seg Neutrophils # Lymphocytes # (Manual) POC ABG pH POC ABG pO2 ABG pO2 ABG Base Excess ABG Hemoglobin Oxyhemoglobin Sodium Potassium Chloride Carbon Dioxide BUN Creatinine 0.5 L Glucose 110 H POC Glucose 129 H Lactic Acid Calcium 8.0 L Magnesium AST ALT Alkaline Phosphatase Total Creatine Kinase CK-MB (CK-2) Troponin T NT-Pro-B Natriuret Pep Albumin Triglycerides LDL Cholesterol Direct HDL Cholesterol Urine WBC (Auto) Crossmatch 11/27/18 11/27/18 11/27/18 12:30 17:26 22:38 WBC RBC Hgb Hct MCV MCH MCHC RDW Plt Count Lymph % (Auto) [place] % (Auto) Eos % (Auto) [place] # Seg Neutrophils % Seg Neuts % (Manual) Lymphocytes % (Manual) Eosinophils % (Manual) Seg Neutrophils # Lymphocytes # (Manual) POC ABG pH POC ABG pO2 ABG pO2 ABG Base Excess ABG Hemoglobin Oxyhemoglobin Sodium Potassium Chloride Carbon Dioxide BUN Creatinine Glucose POC Glucose 155 H 196 H 208 H Lactic Acid Calcium Magnesium AST ALT Alkaline Phosphatase Total Creatine Kinase CK-MB (CK-2) Troponin T NT-Pro-B Natriuret Pep Albumin Triglycerides LDL Cholesterol Direct HDL Cholesterol Urine WBC (Auto) Crossmatch 11/28/18 11/28/18 11/28/18 04:28 04:28 06:23 WBC RBC 2.72 L Hgb 7.7 L Hct 22.8 L MCV MCH MCHC RDW 18.7 H Plt Count 125 L Lymph % (Auto) [place] % (Auto) Eos % (Auto) [place] # Seg Neutrophils % Seg Neuts % (Manual) Lymphocytes % (Manual) Eosinophils % (Manual) Seg Neutrophils # Lymphocytes # (Manual) POC ABG pH POC ABG pO2 ABG pO2 ABG Base Excess ABG Hemoglobin Oxyhemoglobin Sodium Potassium Chloride Carbon Dioxide BUN 23 H Creatinine 0.4 L Glucose 112 H POC Glucose 125 H Lactic Acid Calcium 8.0 L Magnesium AST ALT Alkaline Phosphatase Total Creatine Kinase CK-MB (CK-2) Troponin T NT-Pro-B Natriuret Pep Albumin Triglycerides LDL Cholesterol Direct HDL Cholesterol Urine WBC (Auto) Crossmatch 11/28/18 11/28/18 11/29/18 12:07 17:58 00:27 WBC RBC Hgb Hct MCV MCH MCHC RDW Plt Count Lymph % (Auto) [place] % (Auto) Eos % (Auto) [place] # Seg Neutrophils % Seg Neuts % (Manual) Lymphocytes % (Manual) Eosinophils % (Manual) Seg Neutrophils # Lymphocytes # (Manual) POC ABG pH POC ABG pO2 ABG pO2 ABG Base Excess ABG Hemoglobin Oxyhemoglobin Sodium Potassium Chloride Carbon Dioxide BUN Creatinine Glucose POC Glucose 138 H 138 H 207 H Lactic Acid Calcium Magnesium AST ALT Alkaline Phosphatase Total Creatine Kinase CK-MB (CK-2) Troponin T NT-Pro-B Natriuret Pep Albumin Triglycerides LDL Cholesterol Direct HDL Cholesterol Urine WBC (Auto) Crossmatch 11/29/18 11/29/18 11/29/18 05:33 12:52 18:28 WBC RBC Hgb Hct MCV MCH MCHC RDW Plt Count Lymph % (Auto) [place] % (Auto) Eos % (Auto) [place] # Seg Neutrophils % Seg Neuts % (Manual) Lymphocytes % (Manual) Eosinophils % (Manual) Seg Neutrophils # Lymphocytes # (Manual) POC ABG pH POC ABG pO2 ABG pO2 ABG Base Excess ABG Hemoglobin Oxyhemoglobin Sodium Potassium Chloride Carbon Dioxide BUN Creatinine Glucose POC Glucose 173 H 128 H 127 H Lactic Acid Calcium Magnesium AST ALT Alkaline Phosphatase Total Creatine Kinase CK-MB (CK-2) Troponin T NT-Pro-B Natriuret Pep Albumin Triglycerides LDL Cholesterol Direct HDL Cholesterol Urine WBC (Auto) Crossmatch 11/30/18 11/30/18 11/30/18 00:09 05:23 05:58 WBC RBC 2.60 L Hgb 7.3 L Hct 21.8 L MCV MCH MCHC RDW 18.6 H Plt Count 119 L Lymph % (Auto) [place] % (Auto) Eos % (Auto) [place] # Seg Neutrophils % Seg Neuts % (Manual) Lymphocytes % (Manual) Eosinophils % (Manual) Seg Neutrophils # Lymphocytes # (Manual) POC ABG pH POC ABG pO2 ABG pO2 ABG Base Excess ABG Hemoglobin Oxyhemoglobin Sodium Potassium Chloride Carbon Dioxide BUN Creatinine Glucose POC Glucose 172 H 134 H Lactic Acid Calcium Magnesium AST ALT Alkaline Phosphatase Total Creatine Kinase CK-MB (CK-2) Troponin T NT-Pro-B Natriuret Pep Albumin Triglycerides LDL Cholesterol Direct HDL Cholesterol Urine WBC (Auto) Crossmatch 11/30/18 11/30/18 05:58 12:07 WBC RBC Hgb Hct MCV MCH MCHC RDW Plt Count Lymph % (Auto) [place] % (Auto) Eos % (Auto) [place] # Seg Neutrophils % Seg Neuts % (Manual) Lymphocytes % (Manual) Eosinophils % (Manual) Seg Neutrophils # Lymphocytes # (Manual) POC ABG pH POC ABG pO2 ABG pO2 ABG Base Excess ABG Hemoglobin Oxyhemoglobin Sodium Potassium Chloride Carbon Dioxide 31 H BUN 23 H Creatinine 0.4 L Glucose 121 H POC Glucose 138 H Lactic Acid Calcium 8.1 L Magnesium AST ALT Alkaline Phosphatase Total Creatine Kinase CK-MB (CK-2) Troponin T NT-Pro-B Natriuret Pep Albumin Triglycerides LDL Cholesterol Direct HDL Cholesterol Urine WBC (Auto) Crossmatch Allied health notes reviewed: nursing
[2018-12-01] MEDS: HumaLOG SUB-Q SCH ×5 (01:42→23:30)
[2018-12-01] MEDS: LANTUS SUB-Q SCH ×2 (01:44→22:31)
[2018-12-01] MEDS: ROBINUL PO SCH ×3 (05:44→22:31)
[2018-12-01 07:12] LABS: Hematocrit 21.7 % (35.5-45.6); Hemoglobin 7.2 gm/dl (11.8-15.2); Mean Corpuscular HGB Conc 33 % (32-34); Mean Corpuscular Volume 84 fl (84-94); Platelet Count 124 K/mm3 (140-440); Red Cell Distribution Width 18.5 % (13.2-15.2)
[2018-12-01 07:33] LABS: BUN/Creatinine Ratio 58; Blood Urea Nitrogen 23 mg/dL (9-20); Hemolysis Index 6
[2018-12-01] MEDS: DAKIN'S HALF STRENGTH TP SCH ×2 (11:11→22:32)
[2018-12-01] MEDS: NORVASC PO SCH (11:11)
[2018-12-01] MEDS: HEPARIN SUB-Q SCH ×2 (11:11→22:31)
[2018-12-01] MEDS: PREVACID SOLUTAB FEEDTUBE SCH (11:12)
--- NOTE | 2018-12-01 12:37 | Progress Note ---
Assessment and Plan Assessment and plan: Acute on chronic resp failure Cont. tracheostomy care, secretion control and airway mangement Pulmonology following Off ventilator Severe Sepsis with septic shock due to VRE off vasopressors Blood cultures Enterococcus Faecium 4 of 4 bottles ID Physician following Continue antibiotics per ID recommendations, Zyvox 600 mg twice a day for total of 14 day Sacral decub ulcer. Appreciate general surgery recommendations. considering surgery Diabetes mellitus type 2 Fingerstick q4h Anemia s/p 2 Units PRBC stool occult blood neg Hypertension by history. Monitor History of chronic hypoxic encephalopathy Hyperlipidemia Hypernatremia Hypokalemia Replaced Hypomagnesemia Resolved Full code status Poor prognosis. I had a long discussion with the who wants to continue full supportive and aggressive care. Surgery also had a discussion with the with regards to debridement of his wound. reportedly has not decided on surgery yet. History Interval history: Patient is 77 yo resident at [facility] with chronic resp failure s/p trach, diabetes, BPH,hypertension, chronic hypoxic encephalopatyhy. He [facility] because of difficulty breathing, respiratory distress. He was seen and evaluated in ED and duagnosed with acute on chronic respiratory failure failure and hypotension. He was put on ventilator since he already had a tracheostomy. He was diagnosed with sepsis with septic shock, started on iv A bx and previously required pressors which are off now. He remained only minimally responsive. wants 'everything' done. patient has sacral decub ulcer and considering debridement surgery by Dr. Marvin. He is now off ventilator, transferred to [facility]. he is still critically ill. Hospitalist Physical - Constitutional Vitals: Temp Pulse Resp BP Pulse Ox 97.8 F 80 17 157/75 100 12/01/18 12:00 12/01/18 11:11 12/01/18 06:00 12/01/18 11:11 12/01/18 08:09 General appearance: Present: no acute distress, obese - EENT Eyes: Present: PERRL, EOM intact ENT: hearing intact, clear oral mucosa, dentition normal - Neck Neck: Present: supple, normal ROM - Respiratory Respiratory effort: normal Respiratory: bilateral: CTA - Cardiovascular Rhythm: regular Heart Sounds: Present: S1 & S2. Absent: gallop, rub - Extremities Extremities: no ischemia, No edema, Full ROM - Abdominal General gastrointestinal: soft, non-tender, non-distended, normal bowel sounds - Integumentary Integumentary: Present: clear, warm, dry - Neurologic Neurologic: CNII-XII intact, moves all extremities Results - Labs CBC & Chem 7: 12/01/18 06:45 12/01/18 06:45 Labs: Laboratory Last Values WBC 7.1 K/mm3 (4.5-11.0) 12/01/18 06:45 RBC 2.60 M/mm3 (3.65-5.03) L 12/01/18 06:45 Hgb 7.2 gm/dl (11.8-15.2) L 12/01/18 06:45 Hct 21.7 % (35.5-45.6) L 12/01/18 06:45 MCV 84 fl (84-94) 12/01/18 06:45 MCH 28 pg (28-32) 12/01/18 06:45 MCHC 33 % (32-34) 12/01/18 06:45 RDW 18.5 % (13.2-15.2) H 12/01/18 06:45 Plt Count 124 K/mm3 (140-440) L 12/01/18 06:45 Lymph % (Auto) 22.4 % (13.4-35.0) 11/23/18 06:48 [place] % (Auto) 8.7 % (0.0-7.3) H 11/23/18 06:48 Eos % (Auto) 4.5 % (0.0-4.3) H 11/23/18 06:48 Baso % (Auto) 0.6 % (0.0-1.8) 11/23/18 06:48 Lymph # 1.7 K/mm3 (1.2-5.4) 11/23/18 06:48 [place] # 0.7 K/mm3 (0.0-0.8) 11/23/18 06:48 Eos # 0.3 K/mm3 (0.0-0.4) 11/23/18 06:48 Baso # 0.0 K/mm3 (0.0-0.1) 11/23/18 06:48 Add Manual Diff Complete 11/13/18 14:00 Total Counted 100 11/13/18 14:00 Seg Neutrophils % 63.8 % (40.0-70.0) 11/23/18 06:48 Seg Neuts % (Manual) 87.0 % (40.0-70.0) H 11/13/18 14:00 0 % 11/13/18 14:00 5.0 % (13.4-35.0) L 11/13/18 14:00 Reactive Lymphs % (Man) 0 % 11/13/18 14:00 1.0 % (0.0-7.3) 11/13/18 14:00 7.0 % (0.0-4.3) H 11/13/18 14:00 0 % (0.0-1.8) 11/13/18 14:00 0 % 11/13/18 14:00 0 % 11/13/18 14:00 0 % 11/13/18 14:00 0 % 11/13/18 14:00 Nucleated RBC % Not Reportable 11/13/18 14:00 Seg Neutrophils # 5.0 K/mm3 (1.8-7.7) 11/23/18 06:48 Seg Neutrophils # Man 3.3 K/mm3 (1.8-7.7) 11/13/18 14:00 Band Neutrophils # 0.0 K/mm3 11/13/18 14:00 0.2 K/mm3 (1.2-5.4) L 11/13/18 14:00 Abs React Lymphs (Man) 0.0 K/mm3 11/13/18 14:00 0.0 K/mm3 (0.0-0.8) 11/13/18 14:00 0.3 K/mm3 (0.0-0.4) 11/13/18 14:00 0.0 K/mm3 (0.0-0.1) 11/13/18 14:00 0.0 K/mm3 11/13/18 14:00 0.0 K/mm3 11/13/18 14:00 0.0 K/mm3 11/13/18 14:00 Blast Cells # 0.0 K/mm3 11/13/18 14:00 WBC Morphology Not Reportable 11/13/18 14:00 Hypersegmented Neuts Not Reportable 11/13/18 14:00 Hyposegmented Neuts Not Reportable 11/13/18 14:00 Hypogranular Neuts Not Reportable 11/13/18 14:00 Not Reportable 11/13/18 14:00 Not Reportable 11/13/18 14:00 Not Reportable 11/13/18 14:00 Not Reportable 11/13/18 14:00 Not Reportable 11/13/18 14:00 Not Reportable 11/13/18 14:00 Consistent w auto 11/13/18 14:00 Not Reportable 11/13/18 14:00 Plt Clumps, EDTA Not Reportable 11/13/18 14:00 Not Reportable 11/13/18 14:00 Not Reportable 11/13/18 14:00 Not Reportable 11/13/18 14:00 Plt Morphology Comment Not Reportable 11/13/18 14:00 RBC Morphology Not Reportable 11/13/18 14:00 Dimorphic RBCs Not Reportable 11/13/18 14:00 Few 11/13/18 14:00 Not Reportable 11/13/18 14:00 Few 11/13/18 14:00 1+ 11/13/18 14:00 Not Reportable 11/13/18 14:00 Not Reportable 11/13/18 14:00 Few 11/13/18 14:00 Not Reportable 11/13/18 14:00 Not Reportable 11/13/18 14:00 Not Reportable 11/13/18 14:00 Not Reportable 11/13/18 14:00 Not Reportable 11/13/18 14:00 Not Reportable 11/13/18 14:00 Not Reportable 11/13/18 14:00 Not Reportable 11/13/18 14:00 Not Reportable 11/13/18 14:00 Not Reportable 11/13/18 14:00 Not Reportable 11/13/18 14:00 Not Reportable 11/13/18 14:00 Acanthocytes (Spur) Not Reportable 11/13/18 14:00 Rouleaux Not Reportable 11/13/18 14:00 Not Reportable 11/13/18 14:00 Not Reportable 11/13/18 14:00 Not Reportable 11/13/18 14:00 Not Reportable 11/13/18 14:00 Hem Pathologist Commnt No 11/13/18 14:00 POC ABG pH 7.414 (7.35-7.45) 11/23/18 05:26 ABG pH 7.367 pH Units (7.350-7.450) 11/24/18 20:50 POC ABG pCO2 35.8 (35-45) 11/23/18 05: ABG pCO2 45.8 mm Hg 11/24/18 20:50 POC ABG pO2 93 (80-105) 11/23/18 05: ABG pO2 89.9 mm Hg (80.0-90.0) 11/24/18 20:50 POC ABG HCO3 22.9 (22-26 mml/L) 11/23/18 05: ABG HCO3 25.7 mmol/L (20.0-26.0) 11/24/18 20:50 POC ABG Total CO2 24 (23-27mmol/L) 11/23/18 05:26 POC ABG O2 Sat 97 11/23/18 05: ABG O2 Saturation 97.1 % (95.0-99.0) 11/24/18 20:50 ABG O2 Content 6.4 (0.0-44) 11/24/18 20:50 POC ABG Base Excess -2 ((-2) - (+3)mmol/L) 11/23/18 05:26 ABG Base Excess 0.4 mmol/L (-2.0-3.0) 11/24/18 20:50 ABG Hemoglobin 8.2 gm/dl (14.0-18.0) L 11/24/18 20:50 ABG Carboxyhemoglobin 1.8 % (0.0-5.0) 11/24/18 20:50 ABG Methemoglobin 0.5 % (0.0-1.5) 11/24/18 20:50 94.8 % (95.0-99.0) L 11/24/18 20:50 28 % 11/24/18 20:50 Sodium 140 mmol/L (137-145) 12/01/18 06:45 Potassium 4.2 mmol/L (3.6-5.0) 12/01/18 06:45 Chloride 101.8 mmol/L (98-107) 12/01/18 06:45 Carbon Dioxide 32 mmol/L (22-30) H 12/01/18 06:45 10 mmol/L 12/01/18 06:45 BUN 23 mg/dL (9-20) H 12/01/18 06:45 0.4 mg/dL (0.8-1.5) L 12/01/18 06:45 Estimated GFR > 60 ml/min 12/01/18 06:45 58 % 12/01/18 06:45 Glucose 139 mg/dL (75-100) H 12/01/18 06:45 POC Glucose 136 (70-105) H 12/01/18 12:15 Lactic Acid 1.60 mmol/L (0.7-2.0) 11/14/18 12:50 Calcium 8.0 mg/dL (8.4-10.2) L 12/01/18 06:45 Magnesium 2.00 mg/dL (1.7-2.3) 11/26/18 05:50 0.70 mg/dL (0.1-1.2) 11/13/18 14:00 AST 154 units/L (5-40) H 11/13/18 14:00 ALT 134 units/L (7-56) H 11/13/18 14:00 586 units/L (35-129) H 11/13/18 14:00 510 units/L (55-170) H 11/13/18 14:49 CK-MB (CK-2) 4.4 ng/mL (0.0-4.0) H 11/13/18 14:49 CK-MB (CK-2) Rel Index 0.8 (0-4) 11/13/18 14:49 0.348 ng/mL (0.00-0.029) H* 11/13/18 14:49 NT-Pro-B Natriuret Pep 3679 pg/mL (0-900) H 11/13/18 14:49 6.8 g/dL (6.3-8.2) 11/13/18 14:00 1.2 g/dL (3.9-5) L 11/13/18 14:00 0.2 % 11/13/18 14:00 Triglycerides 284 mg/dL (2-149) H 11/13/18 14:49 Cholesterol 56 mg/dL (50-199) 11/13/18 14:49 4 mg/dL (50-130) L 11/13/18 14:49 7 mg/dL (40-59) L 11/13/18 14:49 8.00 % 11/13/18 14:49 Yellow (Yellow) 11/13/18 14:44 Slightly-cloudy (Clear) 11/13/18 14:44 6.0 (5.0-7.0) 11/13/18 14:44 Ur Specific [place] 1.017 (1.003-1.030) 11/13/18 14:44 30 mg/dl mg/dL (Negative) 11/13/18 14:44 Neg mg/dL (Negative) 11/13/18 14:44 Neg mg/dL (Negative) 11/13/18 14:44 Neg (Negative) 11/13/18 14:44 Neg (Negative) 11/13/18 14:44 Neg (Negative) 11/13/18 14:44 4.0 mg/dL (<2.0) 11/13/18 14:44 Ur Leukocyte Esterase Mod (Negative) 11/13/18 14:44 36.0 /HPF (0.0-6.0) H 11/13/18 14:44 21.0 /HPF (0.0-6.0) 11/13/18 14:44 1+ /HPF (Negative) 11/13/18 14:44 Few /HPF 11/13/18 14:44 3+ /HPF 11/13/18 14:44 Hepatitis A IgM Ab Non-reactive (NonReactive) 11/14/18 02:00 Hep Bs Antigen Non-reactive (Negative) 11/14/18 02:00 Hep B Core IgM Ab Non-reactive (NonReactive) 11/14/18 02:00 Non-reactive (NonReactive) 11/14/18 02:00 HIV 1&2 Antibody Rapid Non react (Non React) 11/14/18 02:00 Non react (Non React) 11/14/18 02:00 Blood Type O POSITIVE 11/13/18 14:49 Antibody Screen Negative 11/13/18 14:49 Crossmatch See Detail 11/13/18 14:49 Active Medications - Current Medications Current Medications: Generic Name Dose Route Start Last Admin Trade Name Freq PRN Reason Stop Dose Admin Albuterol 2.5 mg 11/19/18 17:21 Proventil IH Q6HRT PRN Shortness Of Breath Amlodipine Besylate 5 mg 11/20/18 13:00 12/01/18 11:11 Norvasc PO 5 mg QDAY LENCHO Administration Lipase/Protease/Amylase 1 each 11/14/18 14:20 Pancregarrett Alas 10,500 Unit FEEDTUBE PRN PRN For Clogged Feeding Tube Glycopyrrolate 2 mg 11/25/18 14:00 12/01/18 05:44 Robinul PO 2 mg Q8HR LENCHO Administration Heparin Sodium (Porcine) 5,000 unit 11/14/18 03:30 12/01/18 11:11 Heparin SUB-Q 5,000 unit Q12HR LENCHO Administration Hydralazine HCl 10 mg 11/20/18 12:30 11/20/18 12:26 Apresoline IV 10 mg Q4H PRN Administration Blood Pressure Hydrophilic Ointment 1 applic 11/24/18 08:23 Vaseline Lip Therapy TP Q2HR PRN Dry Lips Insulin Glargine 20 units 11/23/18 22:00 12/01/18 01:44 Lantus SUB-Q 20 units QHS LENCHO Administration Insulin Human Lispro 0 unit 11/14/18 06:00 12/01/18 06:15 Humalog SUB-Q Not Given Q6HR [facility] Protocol Lansoprazole 30 mg 11/16/18 10:00 12/01/18 11:12 Prevacid Solutab FEEDTUBE 30 mg QDAY LENCHO Administration Multi-Ingred Cream/Lotion/Oil/Oint 1 applic 11/24/18 08:23 11/30/18 09:08 Artificial Tears Ophth Oint OU 1 applic Q4HR PRN Administration Dry Eye(s) Scopolamine 1 each 11/19/18 15:00 11/28/18 14:21 Transderm-Scop TD 1 each Q3D LENCHO Administration Simple Syrup 15 ml 11/14/18 14:20 Simple Syrup FEEDTUBE PRN PRN Hypoglycemia Simple Syrup 30 ml 11/14/18 14:20 Simple Syrup FEEDTUBE PRN PRN Hypoglycemia Sodium Bicarbonate 325 mg 11/14/18 14:20 Sodium Bicarbonate FEEDTUBE PRN PRN For Clogged Feeding Tube Sodium Hypochlorite 1 applic 11/16/18 13:00 12/01/18 11:11 Dakin's Half Strength TP 1 applicatio BID LENCHO Administration Nutrition/Malnutrition Assess - Dietary Evaluation Nutrition/Malnutrition Findings: Nutrition Notes Start: 11/14/18 10:33 Freq: Status: Active Protocol: Document 12/01/18 11:20 LM (Rec: 12/01/18 11:35 LM [email or web address]) Nutrition Notes Initial or Follow up Reassessment Current Diagnosis Acute Kidney Injury,Decubitus( Pressure Ulcer),Diabetes, Sepsis,Hypertension,Heart Failure,Respiratory Failure, Stroke Other Pertinent Diagnosis sacral wound, UTI, Dysphagia, Chronic encephalopathy Current Diet Vital AF 1.2 at 60 ml/hr Labs/Tests BUN 23 Cr 0.4 BG 139 Pertinent Medications Reviewed Height 5 ft 9 in Weight 98 kg [place] Body Weight (kg) 72.72 BMI 31.8 Subjective/Other Information Vital AF 1.2 running at 60 ml/ hr at time of visit. Pt is tolerating TF. Percent of energy/protein needs met: 93%/100% Burn Absent Trauma Absent #1 Nutrition Diagnosis Inadequate oral intake Diagnosis Progress(for reassessment Continues documentation) Is patient on ventilator? No Is Patient Ambulatory and/or Out of Bed No REE-(Anderson-St. Jeor-confined to bed) Calculation Used for Recommendations Anderson-St Jeor Additional Notes Pro needs 1.2-2g/k-168g/ day Fluid needs 1ml/kcal Nutrition Intervention Change Diet Order: Continue TF Nutrition Support: Vital AF 1.2 at 60ml/hr with 100ml water flush q4h. Kcal 1,728 Protein (gm) 108 Carbohydrates (gm) 159 Fat (gm) 78 Fluid (mL) 1,168 Fiber (gm) 7 Goal #1 TF to meet at least 75% of energy and protein needs Goal #2 Wound healing Anticipated Discharge Needs: Unable to determine at this time Follow-Up By: 12/08/18 Additional Comments F/U for TF tolerance and rate
--- NOTE | 2018-12-01 14:55 | Progress Note ---
Assessment and Plan Patgient not responding to verbal stimuli. Resting on T tube. FIO2 28% and O2 saturation running 98%. No acute respiratory distress.Patient afebrile. No leukocytosis. - Patient Problems (1) Acute and chronic respiratory failure Current Visit: No Status: Acute Qualifiers: Respiratory failure complication: hypoxia Qualified Code(s): J96.21 - Acute and chronic respiratory failure with hypoxia Plan to address problem: T tube FIO2 28%. Respiratory suctioning. Albuterol/atrovent aerosol treatments q 6 hours. Continue prevacid. Continue S/C Heparin. (2) History of tracheostomy Current Visit: No Status: Chronic Plan to address problem: Tracheostomy care by respiratory therapy. (3) CHF (congestive heart failure) Current Visit: Yes Status: Acute Qualifiers: Heart failure type: unspecified Heart failure chronicity: acute Qualified Code(s): I50.9 - Heart failure, unspecified Plan to address problem: Management as per primary care and cardiology. (4) Hypoxic encephalopathy Current Visit: Yes Status: Acute Plan to address problem: Management as per primary care and neurology. (5) Pleural effusion, left Current Visit: Yes Status: Acute Plan to address problem: Obtaining ultrasound of the chest. (6) Sacral decubitus ulcer Current Visit: Yes Status: Acute Qualifiers: Pressure injury stage: unspecified pressure injury stage Qualified Code(s): L89.159 - Pressure ulcer of sacral region, unspecified stage Plan to address problem: Mangement as per wound care and infectious diseases. (7) Septic shock Current Visit: Yes Status: Acute Plan to address problem: Management as per Primary care and ID. (8) Urinary tract infection Current Visit: Yes Status: Acute Qualifiers: Urinary tract infection type: acute cystitis Hematuria presence: with hematuria Qualified Code(s): N30.01 - Acute cystitis with hematuria Plan to address problem: Management as per Primary care and ID. (9) MAYLIN (acute kidney injury) Current Visit: No Status: Acute Plan to address problem: Management as per nephrology. (10) Essential (primary) hypertension Current Visit: No Status: Acute Plan to address problem: Management as per primary care. Subjective Date of service: 12/01/18 Principal diagnosis: Severe sepsis with shock; Ac and ch resp failure; Metabolic encephalopathy Interval history: Patgient not responding to verbal stimuli. Resting on T tube. FIO2 28% and O2 saturation running 98%. No acute respiratory distress.Patient afebrile. No leukocytosis. Objective Vital Signs - 12hr 12/01/18 12/01/18 12/01/18 03:00 03:48 04:00 Temperature 98.5 F Pulse Rate 80 82 Pulse Rate [ 77 From Monitor] Respiratory 14 13 Rate Blood Pressure 157/78 153/72 O2 Sat by Pulse 98 97 Oximetry O2 Sat by Pulse Oximetry [ Assessment] 12/01/18 12/01/18 12/01/18 05:00 06:00 07:49 Temperature 97.9 F Pulse Rate 80 84 Pulse Rate [ From Monitor] Respiratory 14 17 Rate Blood Pressure 149/74 149/80 O2 Sat by Pulse 98 98 Oximetry O2 Sat by Pulse Oximetry [ Assessment] 12/01/18 12/01/18 12/01/18 08:08 08:09 11:11 Temperature Pulse Rate 80 Pulse Rate [ From Monitor] Respiratory Rate Blood Pressure 157/75 O2 Sat by Pulse 100 Oximetry O2 Sat by Pulse 100 Oximetry [ Assessment] 12/01/18 12/01/18 12:00 14:29 Temperature 97.8 F Pulse Rate Pulse Rate [ From Monitor] Respiratory Rate Blood Pressure O2 Sat by Pulse Oximetry O2 Sat by Pulse 99 Oximetry [ Assessment] Constitutional: no acute distress, other (elderly looking AAM , unresponsive; trach in place to ATP, moderate secretions) Eyes: non-icteric ENT: oropharynx moist Neck: supple, no lymphadenopathy, no JVD, other (midline trach) Effort: normal Ascultation: Bilateral: diminished breath sounds, rales, rhonchi (scant in bases) Percussion: Bilateral: not dull Cardiovascular: regular rate and rhythm, other (S1,S2) Gastrointestinal: normoactive bowel sounds, soft, non-distended, other (PEG in place, chronic douglass catheter, scrotal edema) Integumentary: decubitus ulcer (see wound care notes) Extremities: no cyanosis, pink and warm, pulses normal, edema (2+) Neurologic: unable to assess, other (encephalopathic, unresponsive) Psychiatric: other (unable to assess) CBC and BMP: 12/01/18 06:45 12/01/18 06:45 ABG, PT/INR, D-dimer: ABG POC ABG pH 7.414 (7.35-7.45) 11/23/18 05:26 ABG pH 7.367 pH Units (7.350-7.450) 11/24/18 20:50 POC ABG pCO2 35.8 (35-45) 11/23/18 05:26 ABG pCO2 45.8 mm Hg 11/24/18 20:50 POC ABG pO2 93 (80-105) 11/23/18 05:26 ABG pO2 89.9 mm Hg (80.0-90.0) 11/24/18 20:50 POC ABG HCO3 22.9 (22-26 mml/L) 11/23/18 05:26 POC ABG Total CO2 24 (23-27mmol/L) 11/23/18 05:26 POC ABG O2 Sat 97 11/23/18 05:26 ABG O2 Saturation 97.1 % (95.0-99.0) 11/24/18 20:50 Abnormal lab findings: Abnormal Labs 11/13/18 11/13/18 11/13/18 03:30 14:00 14:00 WBC 3.8 L RBC 2.80 L Hgb 7.4 L Hct 22.9 L MCV 82 L MCH 27 L MCHC RDW 19.0 H Plt Count Lymph % (Auto) [place] % (Auto) Eos % (Auto) [place] # Seg Neutrophils % Seg Neuts % (Manual) 87.0 H Lymphocytes % (Manual) 5.0 L Eosinophils % (Manual) 7.0 H Seg Neutrophils # Lymphocytes # (Manual) 0.2 L POC ABG pH POC ABG pO2 ABG pO2 ABG Base Excess ABG Hemoglobin Oxyhemoglobin Sodium 147 H Potassium Chloride Carbon Dioxide 33 H BUN 50 H Creatinine Glucose 193 H POC Glucose Lactic Acid 3.70 H* Calcium 8.1 L Magnesium AST 154 H ALT 134 H Alkaline Phosphatase 586 H Total Creatine Kinase CK-MB (CK-2) Troponin T NT-Pro-B Natriuret Pep Albumin 1.2 L Triglycerides LDL Cholesterol Direct HDL Cholesterol Urine WBC (Auto) Crossmatch 11/13/18 11/13/18 11/13/18 14:00 14:44 14:49 WBC RBC Hgb Hct MCV MCH MCHC RDW Plt Count Lymph % (Auto) [place] % (Auto) Eos % (Auto) [place] # Seg Neutrophils % Seg Neuts % (Manual) Lymphocytes % (Manual) Eosinophils % (Manual) Seg Neutrophils # Lymphocytes # (Manual) POC ABG pH POC ABG pO2 ABG pO2 ABG Base Excess ABG Hemoglobin Oxyhemoglobin Sodium Potassium Chloride Carbon Dioxide BUN Creatinine Glucose POC Glucose Lactic Acid 2.60 H* Calcium Magnesium AST ALT Alkaline Phosphatase Total Creatine Kinase 510 H CK-MB (CK-2) 4.4 H Troponin T 0.348 H* NT-Pro-B Natriuret Pep 3679 H Albumin Triglycerides 284 H LDL Cholesterol Direct 4 L HDL Cholesterol 7 L Urine WBC (Auto) 36.0 H Crossmatch 11/13/18 11/13/18 11/13/18 14:49 14:49 14:52 WBC RBC Hgb Hct MCV MCH MCHC RDW Plt Count Lymph % (Auto) [place] % (Auto) Eos % (Auto) [place] # Seg Neutrophils % Seg Neuts % (Manual) Lymphocytes % (Manual) Eosinophils % (Manual) Seg Neutrophils # Lymphocytes # (Manual) POC ABG pH POC ABG pO2 ABG pO2 ABG Base Excess ABG Hemoglobin Oxyhemoglobin Sodium Potassium Chloride Carbon Dioxide BUN Creatinine Glucose POC Glucose 205 H Lactic Acid 3.90 H* Calcium Magnesium AST ALT Alkaline Phosphatase Total Creatine Kinase CK-MB (CK-2) Troponin T NT-Pro-B Natriuret Pep Albumin Triglycerides LDL Cholesterol Direct HDL Cholesterol Urine WBC (Auto) Crossmatch See Detail 11/13/18 11/13/18 11/13/18 16:58 17:13 19:46 WBC RBC Hgb Hct MCV MCH MCHC RDW Plt Count Lymph % (Auto) [place] % (Auto) Eos % (Auto) [place] # Seg Neutrophils % Seg Neuts % (Manual) Lymphocytes % (Manual) Eosinophils % (Manual) Seg Neutrophils # Lymphocytes # (Manual) POC ABG pH 7.573 H POC ABG pO2 ABG pO2 ABG Base Excess ABG Hemoglobin Oxyhemoglobin Sodium Potassium Chloride Carbon Dioxide BUN Creatinine Glucose POC Glucose Lactic Acid 3.90 H* 4.40 H* Calcium Magnesium AST ALT Alkaline Phosphatase Total Creatine Kinase CK-MB (CK-2) Troponin T NT-Pro-B Natriuret Pep Albumin Triglycerides LDL Cholesterol Direct HDL Cholesterol Urine WBC (Auto) Crossmatch 11/13/18 11/14/18 11/14/18 21:34 04:50 05:23 WBC RBC Hgb Hct MCV MCH MCHC RDW Plt Count Lymph % (Auto) [place] % (Auto) Eos % (Auto) [place] # Seg Neutrophils % Seg Neuts % (Manual) Lymphocytes % (Manual) Eosinophils % (Manual) Seg Neutrophils # Lymphocytes # (Manual) POC ABG pH POC ABG pO2 ABG pO2 120.8 H ABG Base Excess ABG Hemoglobin 10.9 L Oxyhemoglobin Sodium Potassium Chloride Carbon Dioxide BUN Creatinine Glucose POC Glucose 263 H Lactic Acid 4.50 H* Calcium Magnesium AST ALT Alkaline Phosphatase Total Creatine Kinase CK-MB (CK-2) Troponin T NT-Pro-B Natriuret Pep Albumin Triglycerides LDL Cholesterol Direct HDL Cholesterol Urine WBC (Auto) Crossmatch 11/14/18 11/14/18 11/14/18 05:46 08:02 12:42 WBC RBC Hgb Hct MCV MCH MCHC RDW Plt Count Lymph % (Auto) [place] % (Auto) Eos % (Auto) [place] # Seg Neutrophils % Seg Neuts % (Manual) Lymphocytes % (Manual) Eosinophils % (Manual) Seg Neutrophils # Lymphocytes # (Manual) POC ABG pH 7.463 H POC ABG pO2 136 H ABG pO2 ABG Base Excess ABG Hemoglobin Oxyhemoglobin Sodium Potassium Chloride Carbon Dioxide BUN Creatinine Glucose POC Glucose 213 H Lactic Acid 2.70 H* Calcium Magnesium AST ALT Alkaline Phosphatase Total Creatine Kinase CK-MB (CK-2) Troponin T NT-Pro-B Natriuret Pep Albumin Triglycerides LDL Cholesterol Direct HDL Cholesterol Urine WBC (Auto) Crossmatch 11/14/18 11/14/18 11/14/18 14:17 14:17 15:50 WBC 13.1 H 13.1 H RBC 2.36 L 2.36 L Hgb 6.1 L 6.1 L Hct 19.6 L* 19.4 L* MCV 83 L 82 L MCH 26 L 26 L MCHC 31 L 31 L RDW 19.4 H 19.3 H Plt Count Lymph % (Auto) [place] % (Auto) Eos % (Auto) [place] # Seg Neutrophils % Seg Neuts % (Manual) Lymphocytes % (Manual) Eosinophils % (Manual) Seg Neutrophils # Lymphocytes # (Manual) POC ABG pH POC ABG pO2 ABG pO2 ABG Base Excess ABG Hemoglobin Oxyhemoglobin Sodium 148 H Potassium Chloride 110.3 H Carbon Dioxide BUN 56 H Creatinine Glucose 203 H POC Glucose Lactic Acid Calcium 7.6 L Magnesium AST ALT Alkaline Phosphatase Total Creatine Kinase CK-MB (CK-2) Troponin T NT-Pro-B Natriuret Pep Albumin Triglycerides LDL Cholesterol Direct HDL Cholesterol Urine WBC (Auto) Crossmatch 11/14/18 11/14/18 11/15/18 18:19 23:52 05:10 WBC 16.2 H RBC 3.22 L Hgb 8.8 L Hct 26.8 L D MCV 83 L MCH 27 L MCHC RDW 16.8 H Plt Count Lymph % (Auto) [place] % (Auto) Eos % (Auto) [place] # Seg Neutrophils % Seg Neuts % (Manual) Lymphocytes % (Manual) Eosinophils % (Manual) Seg Neutrophils # Lymphocytes # (Manual) POC ABG pH POC ABG pO2 ABG pO2 ABG Base Excess ABG Hemoglobin Oxyhemoglobin Sodium Potassium Chloride Carbon Dioxide BUN Creatinine Glucose POC Glucose 213 H 242 H Lactic Acid Calcium Magnesium AST ALT Alkaline Phosphatase Total Creatine Kinase CK-MB (CK-2) Troponin T NT-Pro-B Natriuret Pep Albumin Triglycerides LDL Cholesterol Direct HDL Cholesterol Urine WBC (Auto) Crossmatch 11/15/18 11/15/18 11/15/18 05:10 05:36 11:15 WBC RBC Hgb Hct MCV MCH MCHC RDW Plt Count Lymph % (Auto) [place] % (Auto) Eos % (Auto) [place] # Seg Neutrophils % Seg Neuts % (Manual) Lymphocytes % (Manual) Eosinophils % (Manual) Seg Neutrophils # Lymphocytes # (Manual) POC ABG pH POC ABG pO2 ABG pO2 ABG Base Excess ABG Hemoglobin Oxyhemoglobin Sodium 148 H Potassium 3.5 L Chloride 112.8 H Carbon Dioxide BUN 51 H Creatinine Glucose 154 H POC Glucose 143 H 139 H Lactic Acid Calcium 7.8 L Magnesium AST ALT Alkaline Phosphatase Total Creatine Kinase CK-MB (CK-2) Troponin T NT-Pro-B Natriuret Pep Albumin Triglycerides LDL Cholesterol Direct HDL Cholesterol Urine WBC (Auto) Crossmatch 11/15/18 11/15/18 11/15/18 12:00 18:28 20:56 WBC RBC Hgb Hct MCV MCH MCHC RDW Plt Count Lymph % (Auto) [place] % (Auto) Eos % (Auto) [place] # Seg Neutrophils % Seg Neuts % (Manual) Lymphocytes % (Manual) Eosinophils % (Manual) Seg Neutrophils # Lymphocytes # (Manual) POC ABG pH POC ABG pO2 ABG pO2 ABG Base Excess ABG Hemoglobin Oxyhemoglobin Sodium 148 H Potassium 3.2 L Chloride 113.0 H Carbon Dioxide BUN 44 H Creatinine Glucose 144 H POC Glucose 159 H 150 H Lactic Acid Calcium 7.7 L Magnesium AST ALT Alkaline Phosphatase Total Creatine Kinase CK-MB (CK-2) Troponin T NT-Pro-B Natriuret Pep Albumin Triglycerides LDL Cholesterol Direct HDL Cholesterol Urine WBC (Auto) Crossmatch 11/15/18 11/16/18 11/16/18 23:32 03:40 03:45 WBC 16.1 H RBC 3.30 L Hgb 8.9 L Hct 27.9 L MCV MCH 27 L MCHC RDW 17.5 H Plt Count Lymph % (Auto) [place] % (Auto) Eos % (Auto) [place] # Seg Neutrophils % Seg Neuts % (Manual) Lymphocytes % (Manual) Eosinophils % (Manual) Seg Neutrophils # Lymphocytes # (Manual) POC ABG pH POC ABG pO2 ABG pO2 147.0 H ABG Base Excess ABG Hemoglobin 12.0 L Oxyhemoglobin Sodium Potassium Chloride Carbon Dioxide BUN Creatinine Glucose POC Glucose 131 H Lactic Acid Calcium Magnesium AST ALT Alkaline Phosphatase Total Creatine Kinase CK-MB (CK-2) Troponin T NT-Pro-B Natriuret Pep Albumin Triglycerides LDL Cholesterol Direct HDL Cholesterol Urine WBC (Auto) Crossmatch 11/16/18 11/16/18 11/16/18 03:45 05:15 15:14 WBC RBC Hgb Hct MCV MCH MCHC RDW Plt Count Lymph % (Auto) [place] % (Auto) Eos % (Auto) [place] # Seg Neutrophils % Seg Neuts % (Manual) Lymphocytes % (Manual) Eosinophils % (Manual) Seg Neutrophils # Lymphocytes # (Manual) POC ABG pH POC ABG pO2 ABG pO2 ABG Base Excess ABG Hemoglobin Oxyhemoglobin Sodium 149 H Potassium 3.5 L Chloride 116.2 H Carbon Dioxide 21 L BUN 41 H Creatinine Glucose 146 H POC Glucose 155 H 215 H Lactic Acid Calcium 7.7 L Magnesium AST ALT Alkaline Phosphatase Total Creatine Kinase CK-MB (CK-2) Troponin T NT-Pro-B Natriuret Pep Albumin Triglycerides LDL Cholesterol Direct HDL Cholesterol Urine WBC (Auto) Crossmatch 11/16/18 11/16/18 11/17/18 18:20 23:49 04:49 WBC 12.1 H RBC 3.34 L Hgb 9.0 L Hct 28.1 L MCV MCH 27 L MCHC RDW 17.5 H Plt Count Lymph % (Auto) [place] % (Auto) Eos % (Auto) [place] # Seg Neutrophils % Seg Neuts % (Manual) Lymphocytes % (Manual) Eosinophils % (Manual) Seg Neutrophils # Lymphocytes # (Manual) POC ABG pH POC ABG pO2 ABG pO2 ABG Base Excess ABG Hemoglobin Oxyhemoglobin Sodium Potassium Chloride Carbon Dioxide BUN Creatinine Glucose POC Glucose 230 H 189 H Lactic Acid Calcium Magnesium AST ALT Alkaline Phosphatase Total Creatine Kinase CK-MB (CK-2) Troponin T NT-Pro-B Natriuret Pep Albumin Triglycerides LDL Cholesterol Direct HDL Cholesterol Urine WBC (Auto) Crossmatch 11/17/18 11/17/18 11/17/18 04:49 05:45 14:16 WBC RBC Hgb Hct MCV MCH MCHC RDW Plt Count Lymph % (Auto) [place] % (Auto) Eos % (Auto) [place] # Seg Neutrophils % Seg Neuts % (Manual) Lymphocytes % (Manual) Eosinophils % (Manual) Seg Neutrophils # Lymphocytes # (Manual) POC ABG pH POC ABG pO2 ABG pO2 ABG Base Excess ABG Hemoglobin Oxyhemoglobin Sodium 150 H Potassium 3.2 L Chloride 118.9 H Carbon Dioxide 20 L BUN 38 H Creatinine 0.7 L Glucose 164 H POC Glucose 181 H 172 H Lactic Acid Calcium 7.7 L Magnesium AST ALT Alkaline Phosphatase Total Creatine Kinase CK-MB (CK-2) Troponin T NT-Pro-B Natriuret Pep Albumin Triglycerides LDL Cholesterol Direct HDL Cholesterol Urine WBC (Auto) Crossmatch 11/17/18 11/17/18 11/18/18 23:36 Unknown 04:10 WBC RBC Hgb Hct MCV MCH MCHC RDW Plt Count Lymph % (Auto) [place] % (Auto) Eos % (Auto) [place] # Seg Neutrophils % Seg Neuts % (Manual) Lymphocytes % (Manual) Eosinophils % (Manual) Seg Neutrophils # Lymphocytes # (Manual) POC ABG pH POC ABG pO2 ABG pO2 105.9 H 101.8 H ABG Base Excess -2.3 L -3.2 L ABG Hemoglobin 11.5 L 10.2 L Oxyhemoglobin Sodium Potassium Chloride Carbon Dioxide BUN Creatinine Glucose POC Glucose 214 H Lactic Acid Calcium Magnesium AST ALT Alkaline Phosphatase Total Creatine Kinase CK-MB (CK-2) Troponin T NT-Pro-B Natriuret Pep Albumin Triglycerides LDL Cholesterol Direct HDL Cholesterol Urine WBC (Auto) Crossmatch 11/18/18 11/18/18 11/18/18 04:37 04:37 05:36 WBC RBC 3.10 L Hgb 8.5 L Hct 26.8 L MCV MCH 27 L MCHC RDW 17.8 H Plt Count Lymph % (Auto) 12.8 L [place] % (Auto) 8.5 H Eos % (Auto) [place] # 0.9 H Seg Neutrophils % 75.8 H Seg Neuts % (Manual) Lymphocytes % (Manual) Eosinophils % (Manual) Seg Neutrophils # 8.0 H Lymphocytes # (Manual) POC ABG pH POC ABG pO2 ABG pO2 ABG Base Excess ABG Hemoglobin Oxyhemoglobin Sodium 148 H Potassium 3.3 L Chloride 118.3 H Carbon Dioxide 20 L BUN 32 H Creatinine 0.7 L Glucose 154 H POC Glucose 171 H Lactic Acid Calcium 7.4 L Magnesium AST ALT Alkaline Phosphatase Total Creatine Kinase CK-MB (CK-2) Troponin T NT-Pro-B Natriuret Pep Albumin Triglycerides LDL Cholesterol Direct HDL Cholesterol Urine WBC (Auto) Crossmatch 11/18/18 11/18/18 11/18/18 12:10 17:27 23:56 WBC RBC Hgb Hct MCV MCH MCHC RDW Plt Count Lymph % (Auto) [place] % (Auto) Eos % (Auto) [place] # Seg Neutrophils % Seg Neuts % (Manual) Lymphocytes % (Manual) Eosinophils % (Manual) Seg Neutrophils # Lymphocytes # (Manual) POC ABG pH POC ABG pO2 ABG pO2 ABG Base Excess ABG Hemoglobin Oxyhemoglobin Sodium Potassium Chloride Carbon Dioxide BUN Creatinine Glucose POC Glucose 244 H 239 H 241 H Lactic Acid Calcium Magnesium AST ALT Alkaline Phosphatase Total Creatine Kinase CK-MB (CK-2) Troponin T NT-Pro-B Natriuret Pep Albumin Triglycerides LDL Cholesterol Direct HDL Cholesterol Urine WBC (Auto) Crossmatch 11/19/18 11/19/18 11/19/18 03:45 04:27 06:37 WBC RBC Hgb Hct MCV MCH MCHC RDW Plt Count Lymph % (Auto) [place] % (Auto) Eos % (Auto) [place] # Seg Neutrophils % Seg Neuts % (Manual) Lymphocytes % (Manual) Eosinophils % (Manual) Seg Neutrophils # Lymphocytes # (Manual) POC ABG pH POC ABG pO2 ABG pO2 95.5 H ABG Base Excess -4.0 L ABG Hemoglobin 5.9 L Oxyhemoglobin Sodium 147 H Potassium Chloride 119.2 H Carbon Dioxide 20 L BUN 28 H Creatinine 0.6 L Glucose 181 H POC Glucose 220 H Lactic Acid Calcium 7.6 L Magnesium AST ALT Alkaline Phosphatase Total Creatine Kinase CK-MB (CK-2) Troponin T NT-Pro-B Natriuret Pep Albumin Triglycerides LDL Cholesterol Direct HDL Cholesterol Urine WBC (Auto) Crossmatch 11/19/18 11/19/18 11/19/18 06:41 11:27 17:31 WBC RBC 3.28 L Hgb 9.0 L Hct 28.2 L MCV MCH MCHC RDW 17.9 H Plt Count Lymph % (Auto) [place] % (Auto) 11.0 H Eos % (Auto) [place] # 1.1 H Seg Neutrophils % Seg Neuts % (Manual) Lymphocytes % (Manual) Eosinophils % (Manual) Seg Neutrophils # Lymphocytes # (Manual) POC ABG pH POC ABG pO2 ABG pO2 ABG Base Excess ABG Hemoglobin Oxyhemoglobin Sodium Potassium Chloride Carbon Dioxide BUN Creatinine Glucose POC Glucose 280 H 300 H Lactic Acid Calcium Magnesium AST ALT Alkaline Phosphatase Total Creatine Kinase CK-MB (CK-2) Troponin T NT-Pro-B Natriuret Pep Albumin Triglycerides LDL Cholesterol Direct HDL Cholesterol Urine WBC (Auto) Crossmatch 11/19/18 11/20/18 11/20/18 23:30 03:03 03:03 WBC RBC 3.04 L Hgb 8.4 L Hct 26.1 L MCV MCH MCHC RDW 18.1 H Plt Count Lymph % (Auto) [place] % (Auto) 11.0 H Eos % (Auto) [place] # 0.9 H Seg Neutrophils % Seg Neuts % (Manual) Lymphocytes % (Manual) Eosinophils % (Manual) Seg Neutrophils # Lymphocytes # (Manual) POC ABG pH POC ABG pO2 ABG pO2 ABG Base Excess ABG Hemoglobin Oxyhemoglobin Sodium 148 H Potassium Chloride 117.4 H Carbon Dioxide BUN 24 H Creatinine 0.6 L Glucose 238 H POC Glucose 251 H Lactic Acid Calcium 7.9 L Magnesium AST ALT Alkaline Phosphatase Total Creatine Kinase CK-MB (CK-2) Troponin T NT-Pro-B Natriuret Pep Albumin Triglycerides LDL Cholesterol Direct HDL Cholesterol Urine WBC (Auto) Crossmatch 11/20/18 11/20/18 11/20/18 04:20 05:15 12:21 WBC RBC Hgb Hct MCV MCH MCHC RDW Plt Count Lymph % (Auto) [place] % (Auto) Eos % (Auto) [place] # Seg Neutrophils % Seg Neuts % (Manual) Lymphocytes % (Manual) Eosinophils % (Manual) Seg Neutrophils # Lymphocytes # (Manual) POC ABG pH POC ABG pO2 ABG pO2 91.3 H ABG Base Excess -2.6 L ABG Hemoglobin 8.3 L Oxyhemoglobin Sodium Potassium Chloride Carbon Dioxide BUN Creatinine Glucose POC Glucose 213 H 318 H Lactic Acid Calcium Magnesium AST ALT Alkaline Phosphatase Total Creatine Kinase CK-MB (CK-2) Troponin T NT-Pro-B Natriuret Pep Albumin Triglycerides LDL Cholesterol Direct HDL Cholesterol Urine WBC (Auto) Crossmatch 11/20/18 11/20/18 11/20/18 18:01 20:50 23:36 WBC RBC Hgb Hct MCV MCH MCHC RDW Plt Count Lymph % (Auto) [place] % (Auto) Eos % (Auto) [place] # Seg Neutrophils % Seg Neuts % (Manual) Lymphocytes % (Manual) Eosinophils % (Manual) Seg Neutrophils # Lymphocytes # (Manual) POC ABG pH POC ABG pO2 ABG pO2 90.8 H ABG Base Excess -2.1 L ABG Hemoglobin 13.4 L Oxyhemoglobin 94.9 L Sodium Potassium Chloride Carbon Dioxide BUN Creatinine Glucose POC Glucose 301 H 290 H Lactic Acid Calcium Magnesium AST ALT Alkaline Phosphatase Total Creatine Kinase CK-MB (CK-2) Troponin T NT-Pro-B Natriuret Pep Albumin Triglycerides LDL Cholesterol Direct HDL Cholesterol Urine WBC (Auto) Crossmatch 11/21/18 11/21/18 11/21/18 03:09 03:09 05:10 WBC RBC 3.05 L Hgb 8.5 L Hct 26.1 L MCV MCH MCHC RDW 18.7 H Plt Count Lymph % (Auto) [place] % (Auto) 12.2 H Eos % (Auto) [place] # 0.9 H Seg Neutrophils % Seg Neuts % (Manual) Lymphocytes % (Manual) Eosinophils % (Manual) Seg Neutrophils # Lymphocytes # (Manual) POC ABG pH POC ABG pO2 ABG pO2 ABG Base Excess ABG Hemoglobin Oxyhemoglobin Sodium 150 H Potassium 3.5 L Chloride 118.5 H Carbon Dioxide BUN 22 H Creatinine 0.6 L Glucose 279 H POC Glucose 307 H Lactic Acid Calcium 7.7 L Magnesium AST ALT Alkaline Phosphatase Total Creatine Kinase CK-MB (CK-2) Troponin T NT-Pro-B Natriuret Pep Albumin Triglycerides LDL Cholesterol Direct HDL Cholesterol Urine WBC (Auto) Crossmatch 11/21/18 11/21/18 11/21/18 11:24 17:23 23:20 WBC RBC Hgb Hct MCV MCH MCHC RDW Plt Count Lymph % (Auto) [place] % (Auto) Eos % (Auto) [place] # Seg Neutrophils % Seg Neuts % (Manual) Lymphocytes % (Manual) Eosinophils % (Manual) Seg Neutrophils # Lymphocytes # (Manual) POC ABG pH POC ABG pO2 ABG pO2 ABG Base Excess ABG Hemoglobin Oxyhemoglobin Sodium Potassium Chloride Carbon Dioxide BUN Creatinine Glucose POC Glucose 324 H 288 H 254 H Lactic Acid Calcium Magnesium AST ALT Alkaline Phosphatase Total Creatine Kinase CK-MB (CK-2) Troponin T NT-Pro-B Natriuret Pep Albumin Triglycerides LDL Cholesterol Direct HDL Cholesterol Urine WBC (Auto) Crossmatch 11/22/18 11/22/18 11/22/18 03:50 05:43 06:10 WBC RBC 2.93 L Hgb 8.1 L Hct 25.2 L MCV MCH MCHC RDW 18.6 H Plt Count Lymph % (Auto) [place] % (Auto) 10.9 H Eos % (Auto) 4.4 H [place] # 0.9 H Seg Neutrophils % Seg Neuts % (Manual) Lymphocytes % (Manual) Eosinophils % (Manual) Seg Neutrophils # Lymphocytes # (Manual) POC ABG pH POC ABG pO2 ABG pO2 94.6 H ABG Base Excess ABG Hemoglobin 6.5 L Oxyhemoglobin Sodium Potassium Chloride Carbon Dioxide BUN Creatinine Glucose POC Glucose 227 H Lactic Acid Calcium Magnesium AST ALT Alkaline Phosphatase Total Creatine Kinase CK-MB (CK-2) Troponin T NT-Pro-B Natriuret Pep Albumin Triglycerides LDL Cholesterol Direct HDL Cholesterol Urine WBC (Auto) Crossmatch 11/22/18 11/22/18 11/22/18 06:10 11:35 17:07 WBC RBC Hgb Hct MCV MCH MCHC RDW Plt Count Lymph % (Auto) [place] % (Auto) Eos % (Auto) [place] # Seg Neutrophils % Seg Neuts % (Manual) Lymphocytes % (Manual) Eosinophils % (Manual) Seg Neutrophils # Lymphocytes # (Manual) POC ABG pH POC ABG pO2 ABG pO2 ABG Base Excess ABG Hemoglobin Oxyhemoglobin Sodium 146 H Potassium 3.3 L Chloride 114.8 H Carbon Dioxide BUN 21 H Creatinine 0.5 L Glucose 214 H POC Glucose 262 H 205 H Lactic Acid Calcium 7.7 L Magnesium AST ALT Alkaline Phosphatase Total Creatine Kinase CK-MB (CK-2) Troponin T NT-Pro-B Natriuret Pep Albumin Triglycerides LDL Cholesterol Direct HDL Cholesterol Urine WBC (Auto) Crossmatch 11/22/18 11/23/18 11/23/18 23:23 05:35 06:48 WBC RBC 2.90 L Hgb 8.0 L Hct 25.1 L MCV MCH MCHC RDW 18.7 H Plt Count Lymph % (Auto) [place] % (Auto) 8.7 H Eos % (Auto) 4.5 H [place] # Seg Neutrophils % Seg Neuts % (Manual) Lymphocytes % (Manual) Eosinophils % (Manual) Seg Neutrophils # Lymphocytes # (Manual) POC ABG pH POC ABG pO2 ABG pO2 ABG Base Excess ABG Hemoglobin Oxyhemoglobin Sodium Potassium Chloride Carbon Dioxide BUN Creatinine Glucose POC Glucose 165 H 140 H Lactic Acid Calcium Magnesium AST ALT Alkaline Phosphatase Total Creatine Kinase CK-MB (CK-2) Troponin T NT-Pro-B Natriuret Pep Albumin Triglycerides LDL Cholesterol Direct HDL Cholesterol Urine WBC (Auto) Crossmatch 11/23/18 11/23/18 11/23/18 06:48 12:00 17:16 WBC RBC Hgb Hct MCV MCH MCHC RDW Plt Count Lymph % (Auto) [place] % (Auto) Eos % (Auto) [place] # Seg Neutrophils % Seg Neuts % (Manual) Lymphocytes % (Manual) Eosinophils % (Manual) Seg Neutrophils # Lymphocytes # (Manual) POC ABG pH POC ABG pO2 ABG pO2 ABG Base Excess ABG Hemoglobin Oxyhemoglobin Sodium 146 H Potassium Chloride 115.4 H Carbon Dioxide BUN Creatinine 0.4 L Glucose 144 H POC Glucose 199 H 207 H Lactic Acid Calcium 7.8 L Magnesium AST ALT Alkaline Phosphatase Total Creatine Kinase CK-MB (CK-2) Troponin T NT-Pro-B Natriuret Pep Albumin Triglycerides LDL Cholesterol Direct HDL Cholesterol Urine WBC (Auto) Crossmatch 11/23/18 11/23/18 11/24/18 22:23 23:57 05:38 WBC RBC Hgb Hct MCV MCH MCHC RDW Plt Count Lymph % (Auto) [place] % (Auto) Eos % (Auto) [place] # Seg Neutrophils % Seg Neuts % (Manual) Lymphocytes % (Manual) Eosinophils % (Manual) Seg Neutrophils # Lymphocytes # (Manual) POC ABG pH POC ABG pO2 ABG pO2 ABG Base Excess ABG Hemoglobin Oxyhemoglobin Sodium Potassium Chloride Carbon Dioxide BUN Creatinine Glucose POC Glucose 186 H 172 H 137 H Lactic Acid Calcium Magnesium AST ALT Alkaline Phosphatase Total Creatine Kinase CK-MB (CK-2) Troponin T NT-Pro-B Natriuret Pep Albumin Triglycerides LDL Cholesterol Direct HDL Cholesterol Urine WBC (Auto) Crossmatch 11/24/18 11/24/18 11/24/18 12:23 17:53 20:50 WBC RBC Hgb Hct MCV MCH MCHC RDW Plt Count Lymph % (Auto) [place] % (Auto) Eos % (Auto) [place] # Seg Neutrophils % Seg Neuts % (Manual) Lymphocytes % (Manual) Eosinophils % (Manual) Seg Neutrophils # Lymphocytes # (Manual) POC ABG pH POC ABG pO2 ABG pO2 ABG Base Excess ABG Hemoglobin 8.2 L Oxyhemoglobin 94.8 L Sodium Potassium Chloride Carbon Dioxide BUN Creatinine Glucose POC Glucose 168 H 170 H Lactic Acid Calcium Magnesium AST ALT Alkaline Phosphatase Total Creatine Kinase CK-MB (CK-2) Troponin T NT-Pro-B Natriuret Pep Albumin Triglycerides LDL Cholesterol Direct HDL Cholesterol Urine WBC (Auto) Crossmatch 11/24/18 11/24/18 11/25/18 21:11 23:46 04:24 WBC RBC 2.78 L Hgb 7.7 L Hct 23.7 L MCV MCH MCHC RDW 18.7 H Plt Count Lymph % (Auto) [place] % (Auto) Eos % (Auto) [place] # Seg Neutrophils % Seg Neuts % (Manual) Lymphocytes % (Manual) Eosinophils % (Manual) Seg Neutrophils # Lymphocytes # (Manual) POC ABG pH POC ABG pO2 ABG pO2 ABG Base Excess ABG Hemoglobin Oxyhemoglobin Sodium Potassium Chloride Carbon Dioxide BUN Creatinine Glucose POC Glucose 190 H 169 H Lactic Acid Calcium Magnesium AST ALT Alkaline Phosphatase Total Creatine Kinase CK-MB (CK-2) Troponin T NT-Pro-B Natriuret Pep Albumin Triglycerides LDL Cholesterol Direct HDL Cholesterol Urine WBC (Auto) Crossmatch 11/25/18 11/25/18 11/25/18 04:24 04:24 05:14 WBC RBC Hgb Hct MCV MCH MCHC RDW Plt Count Lymph % (Auto) [place] % (Auto) Eos % (Auto) [place] # Seg Neutrophils % Seg Neuts % (Manual) Lymphocytes % (Manual) Eosinophils % (Manual) Seg Neutrophils # Lymphocytes # (Manual) POC ABG pH POC ABG pO2 ABG pO2 ABG Base Excess ABG Hemoglobin Oxyhemoglobin Sodium Potassium 3.5 L Chloride 108.1 H Carbon Dioxide BUN Creatinine 0.4 L Glucose 119 H POC Glucose 138 H Lactic Acid Calcium 7.9 L Magnesium 1.50 L AST ALT Alkaline Phosphatase Total Creatine Kinase CK-MB (CK-2) Troponin T NT-Pro-B Natriuret Pep Albumin Triglycerides LDL Cholesterol Direct HDL Cholesterol Urine WBC (Auto) Crossmatch 11/25/18 11/25/18 11/25/18 11:46 17:45 23:39 WBC RBC Hgb Hct MCV MCH MCHC RDW Plt Count Lymph % (Auto) [place] % (Auto) Eos % (Auto) [place] # Seg Neutrophils % Seg Neuts % (Manual) Lymphocytes % (Manual) Eosinophils % (Manual) Seg Neutrophils # Lymphocytes # (Manual) POC ABG pH POC ABG pO2 ABG pO2 ABG Base Excess ABG Hemoglobin Oxyhemoglobin Sodium Potassium Chloride Carbon Dioxide BUN Creatinine Glucose POC Glucose 160 H 107 H 118 H Lactic Acid Calcium Magnesium AST ALT Alkaline Phosphatase Total Creatine Kinase CK-MB (CK-2) Troponin T NT-Pro-B Natriuret Pep Albumin Triglycerides LDL Cholesterol Direct HDL Cholesterol Urine WBC (Auto) Crossmatch 11/26/18 11/26/18 11/26/18 05:43 05:50 05:50 WBC RBC 2.91 L Hgb 8.1 L Hct 25.1 L MCV MCH MCHC RDW 19.4 H Plt Count 127 L Lymph % (Auto) [place] % (Auto) Eos % (Auto) [place] # Seg Neutrophils % Seg Neuts % (Manual) Lymphocytes % (Manual) Eosinophils % (Manual) Seg Neutrophils # Lymphocytes # (Manual) POC ABG pH POC ABG pO2 ABG pO2 ABG Base Excess ABG Hemoglobin Oxyhemoglobin Sodium Potassium Chloride 109.7 H Carbon Dioxide BUN Creatinine 0.4 L Glucose 118 H POC Glucose 142 H Lactic Acid Calcium 8.0 L Magnesium AST ALT Alkaline Phosphatase Total Creatine Kinase CK-MB (CK-2) Troponin T NT-Pro-B Natriuret Pep Albumin Triglycerides LDL Cholesterol Direct HDL Cholesterol Urine WBC (Auto) Crossmatch 11/26/18 11/27/18 11/27/18 12:26 05:35 05:35 WBC RBC 2.99 L Hgb 8.3 L Hct 25.3 L MCV MCH MCHC RDW 18.4 H Plt Count 134 L Lymph % (Auto) [place] % (Auto) Eos % (Auto) [place] # Seg Neutrophils % Seg Neuts % (Manual) Lymphocytes % (Manual) Eosinophils % (Manual) Seg Neutrophils # Lymphocytes # (Manual) POC ABG pH POC ABG pO2 ABG pO2 ABG Base Excess ABG Hemoglobin Oxyhemoglobin Sodium Potassium Chloride Carbon Dioxide BUN Creatinine 0.5 L Glucose 110 H POC Glucose 129 H Lactic Acid Calcium 8.0 L Magnesium AST ALT Alkaline Phosphatase Total Creatine Kinase CK-MB (CK-2) Troponin T NT-Pro-B Natriuret Pep Albumin Triglycerides LDL Cholesterol Direct HDL Cholesterol Urine WBC (Auto) Crossmatch 11/27/18 11/27/18 11/27/18 12:30 17:26 22:38 WBC RBC Hgb Hct MCV MCH MCHC RDW Plt Count Lymph % (Auto) [place] % (Auto) Eos % (Auto) [place] # Seg Neutrophils % Seg Neuts % (Manual) Lymphocytes % (Manual) Eosinophils % (Manual) Seg Neutrophils # Lymphocytes # (Manual) POC ABG pH POC ABG pO2 ABG pO2 ABG Base Excess ABG Hemoglobin Oxyhemoglobin Sodium Potassium Chloride Carbon Dioxide BUN Creatinine Glucose POC Glucose 155 H 196 H 208 H Lactic Acid Calcium Magnesium AST ALT Alkaline Phosphatase Total Creatine Kinase CK-MB (CK-2) Troponin T NT-Pro-B Natriuret Pep Albumin Triglycerides LDL Cholesterol Direct HDL Cholesterol Urine WBC (Auto) Crossmatch 11/28/18 11/28/18 11/28/18 04:28 04:28 06:23 WBC RBC 2.72 L Hgb 7.7 L Hct 22.8 L MCV MCH MCHC RDW 18.7 H Plt Count 125 L Lymph % (Auto) [place] % (Auto) Eos % (Auto) [place] # Seg Neutrophils % Seg Neuts % (Manual) Lymphocytes % (Manual) Eosinophils % (Manual) Seg Neutrophils # Lymphocytes # (Manual) POC ABG pH POC ABG pO2 ABG pO2 ABG Base Excess ABG Hemoglobin Oxyhemoglobin Sodium Potassium Chloride Carbon Dioxide BUN 23 H Creatinine 0.4 L Glucose 112 H POC Glucose 125 H Lactic Acid Calcium 8.0 L Magnesium AST ALT Alkaline Phosphatase Total Creatine Kinase CK-MB (CK-2) Troponin T NT-Pro-B Natriuret Pep Albumin Triglycerides LDL Cholesterol Direct HDL Cholesterol Urine WBC (Auto) Crossmatch 11/28/18 11/28/18 11/29/18 12:07 17:58 00:27 WBC RBC Hgb Hct MCV MCH MCHC RDW Plt Count Lymph % (Auto) [place] % (Auto) Eos % (Auto) [place] # Seg Neutrophils % Seg Neuts % (Manual) Lymphocytes % (Manual) Eosinophils % (Manual) Seg Neutrophils # Lymphocytes # (Manual) POC ABG pH POC ABG pO2 ABG pO2 ABG Base Excess ABG Hemoglobin Oxyhemoglobin Sodium Potassium Chloride Carbon Dioxide BUN Creatinine Glucose POC Glucose 138 H 138 H 207 H Lactic Acid Calcium Magnesium AST ALT Alkaline Phosphatase Total Creatine Kinase CK-MB (CK-2) Troponin T NT-Pro-B Natriuret Pep Albumin Triglycerides LDL Cholesterol Direct HDL Cholesterol Urine WBC (Auto) Crossmatch 11/29/18 11/29/18 11/29/18 05:33 12:52 18:28 WBC RBC Hgb Hct MCV MCH MCHC RDW Plt Count Lymph % (Auto) [place] % (Auto) Eos % (Auto) [place] # Seg Neutrophils % Seg Neuts % (Manual) Lymphocytes % (Manual) Eosinophils % (Manual) Seg Neutrophils # Lymphocytes # (Manual) POC ABG pH POC ABG pO2 ABG pO2 ABG Base Excess ABG Hemoglobin Oxyhemoglobin Sodium Potassium Chloride Carbon Dioxide BUN Creatinine Glucose POC Glucose 173 H 128 H 127 H Lactic Acid Calcium Magnesium AST ALT Alkaline Phosphatase Total Creatine Kinase CK-MB (CK-2) Troponin T NT-Pro-B Natriuret Pep Albumin Triglycerides LDL Cholesterol Direct HDL Cholesterol Urine WBC (Auto) Crossmatch 11/30/18 11/30/18 11/30/18 00:09 05:23 05:58 WBC RBC 2.60 L Hgb 7.3 L Hct 21.8 L MCV MCH MCHC RDW 18.6 H Plt Count 119 L Lymph % (Auto) [place] % (Auto) Eos % (Auto) [place] # Seg Neutrophils % Seg Neuts % (Manual) Lymphocytes % (Manual) Eosinophils % (Manual) Seg Neutrophils # Lymphocytes # (Manual) POC ABG pH POC ABG pO2 ABG pO2 ABG Base Excess ABG Hemoglobin Oxyhemoglobin Sodium Potassium Chloride Carbon Dioxide BUN Creatinine Glucose POC Glucose 172 H 134 H Lactic Acid Calcium Magnesium AST ALT Alkaline Phosphatase Total Creatine Kinase CK-MB (CK-2) Troponin T NT-Pro-B Natriuret Pep Albumin Triglycerides LDL Cholesterol Direct HDL Cholesterol Urine WBC (Auto) Crossmatch 11/30/18 11/30/18 11/30/18 05:58 12:07 17:50 WBC RBC Hgb Hct MCV MCH MCHC RDW Plt Count Lymph % (Auto) [place] % (Auto) Eos % (Auto) [place] # Seg Neutrophils % Seg Neuts % (Manual) Lymphocytes % (Manual) Eosinophils % (Manual) Seg Neutrophils # Lymphocytes # (Manual) POC ABG pH POC ABG pO2 ABG pO2 ABG Base Excess ABG Hemoglobin Oxyhemoglobin Sodium Potassium Chloride Carbon Dioxide 31 H BUN 23 H Creatinine 0.4 L Glucose 121 H POC Glucose 138 H 192 H Lactic Acid Calcium 8.1 L Magnesium AST ALT Alkaline Phosphatase Total Creatine Kinase CK-MB (CK-2) Troponin T NT-Pro-B Natriuret Pep Albumin Triglycerides LDL Cholesterol Direct HDL Cholesterol Urine WBC (Auto) Crossmatch 12/01/18 12/01/18 12/01/18 01:25 05:57 05:58 WBC RBC Hgb Hct MCV MCH MCHC RDW Plt Count Lymph % (Auto) [place] % (Auto) Eos % (Auto) [place] # Seg Neutrophils % Seg Neuts % (Manual) Lymphocytes % (Manual) Eosinophils % (Manual) Seg Neutrophils # Lymphocytes # (Manual) POC ABG pH POC ABG pO2 ABG pO2 ABG Base Excess ABG Hemoglobin Oxyhemoglobin Sodium Potassium Chloride Carbon Dioxide BUN Creatinine Glucose POC Glucose 133 H < 40 L 148 H Lactic Acid Calcium Magnesium AST ALT Alkaline Phosphatase Total Creatine Kinase CK-MB (CK-2) Troponin T NT-Pro-B Natriuret Pep Albumin Triglycerides LDL Cholesterol Direct HDL Cholesterol Urine WBC (Auto) Crossmatch 12/01/18 12/01/18 12/01/18 06:45 06:45 12:15 WBC RBC 2.60 L Hgb 7.2 L Hct 21.7 L MCV MCH MCHC RDW 18.5 H Plt Count 124 L Lymph % (Auto) [place] % (Auto) Eos % (Auto) [place] # Seg Neutrophils % Seg Neuts % (Manual) Lymphocytes % (Manual) Eosinophils % (Manual) Seg Neutrophils # Lymphocytes # (Manual) POC ABG pH POC ABG pO2 ABG pO2 ABG Base Excess ABG Hemoglobin Oxyhemoglobin Sodium Potassium Chloride Carbon Dioxide 32 H BUN 23 H Creatinine 0.4 L Glucose 139 H POC Glucose 136 H Lactic Acid Calcium 8.0 L Magnesium AST ALT Alkaline Phosphatase Total Creatine Kinase CK-MB (CK-2) Troponin T NT-Pro-B Natriuret Pep Albumin Triglycerides LDL Cholesterol Direct HDL Cholesterol Urine WBC (Auto) Crossmatch Chest x-ray: report reviewed (Pulmonary edema and left pleural effusion.), image reviewed Allied health notes reviewed: nursing
[2018-12-01] MEDS: TRANSDERM-SCOP TD SCH (15:30)
[2018-12-01] MEDS: APRESOLINE IV PRN (23:29)
[2018-12-02] MEDS: HumaLOG SUB-Q SCH ×3 (06:18→18:34)
[2018-12-02] MEDS: ROBINUL PO SCH ×3 (07:27→21:57)
[2018-12-02] MEDS: DAKIN'S HALF STRENGTH TP SCH (10:15)
[2018-12-02] MEDS: HEPARIN SUB-Q SCH ×2 (10:16→21:57)
[2018-12-02] MEDS: PREVACID SOLUTAB FEEDTUBE SCH (10:16)
[2018-12-02] MEDS: NORVASC PO SCH (10:16)
[2018-12-02] MEDS ORDERED: NACL 0.9% 500 ML 500 ML IV ONE (14:54)
--- NOTE | 2018-12-02 14:56 | Progress Note ---
Assessment and Plan Assessment and plan: Acute on chronic resp failure Cont. tracheostomy care, secretion control and airway mangement Pulmonology following Off ventilator Anemia of chronic disease. Transfuse 1 unit of PRBCs. Severe Sepsis with septic shock due to VRE off vasopressors Blood cultures Enterococcus Faecium 4 of 4 bottles ID Physician following Sacral decub ulcer. Appreciate general surgery recommendations. considering surgery Diabetes mellitus type 2 Fingerstick q4h Hypertension by history. Monitor History of chronic hypoxic encephalopathy Hyperlipidemia Hypernatremia Hypokalemia Replaced Hypomagnesemia Resolved Full code status Poor prognosis. History Interval history: Patient is 77 yo resident at [facility] with chronic resp failure s/p trach, diabetes, BPH,hypertension, chronic hypoxic encephalopatyhy. He was sent to ED from nursing home facility because of difficulty breathing, respiratory distress. He was seen and evaluated in ED and duagnosed with acute on chronic respiratory failure failure and hypotension. He was put on ventilator since he already had a tracheostomy. He was diagnosed with sepsis with septic shock, started on iv Abx and previously required pressors which are off now. He remained only minimally responsive. wants 'everything' done. patient has sacral decub ulcer and considering debridement surgery by Dr. Marvin. He is now off ventilator, transferred to [facility]. he is still critically ill. Hospitalist Physical - Constitutional Vitals: Temp Pulse Resp BP Pulse Ox 97.9 F 86 12 157/73 97 12/02/18 12:00 12/02/18 13:00 12/02/18 13:00 12/02/18 13:00 12/02/18 13:00 General appearance: Present: no acute distress, obese - EENT Eyes: Present: PERRL, EOM intact ENT: hearing intact, clear oral mucosa, dentition normal - Neck Neck: Present: supple, normal ROM - Respiratory Respiratory effort: normal Respiratory: bilateral: CTA - Cardiovascular Rhythm: regular Heart Sounds: Present: S1 & S2. Absent: gallop, rub - Extremities Extremities: no ischemia, No edema, Full ROM - Abdominal General gastrointestinal: soft, non-tender, non-distended, normal bowel sounds - Integumentary Integumentary: Present: clear, warm, dry - Neurologic Neurologic: CNII-XII intact, moves all extremities Results - Labs CBC & Chem 7: 12/01/18 06:45 12/01/18 06:45 Labs: Laboratory Last Values WBC 7.1 K/mm3 (4.5-11.0) 12/01/18 06:45 RBC 2.60 M/mm3 (3.65-5.03) L 12/01/18 06:45 Hgb 7.2 gm/dl (11.8-15.2) L 12/01/18 06:45 Hct 21.7 % (35.5-45.6) L 12/01/18 06:45 MCV 84 fl (84-94) 12/01/18 06:45 MCH 28 pg (28-32) 12/01/18 06:45 MCHC 33 % (32-34) 12/01/18 06:45 RDW 18.5 % (13.2-15.2) H 12/01/18 06:45 Plt Count 124 K/mm3 (140-440) L 12/01/18 06:45 Lymph % (Auto) 22.4 % (13.4-35.0) 11/23/18 06:48 [place] % (Auto) 8.7 % (0.0-7.3) H 11/23/18 06:48 Eos % (Auto) 4.5 % (0.0-4.3) H 11/23/18 06:48 Baso % (Auto) 0.6 % (0.0-1.8) 11/23/18 06:48 Lymph # 1.7 K/mm3 (1.2-5.4) 11/23/18 06:48 Dare # 0.7 K/mm3 (0.0-0.8) 11/23/18 06:48 Eos # 0.3 K/mm3 (0.0-0.4) 11/23/18 06:48 Baso # 0.0 K/mm3 (0.0-0.1) 11/23/18 06:48 Add Manual Diff Complete 11/13/18 14:00 Total Counted 100 11/13/18 14:00 Seg Neutrophils % 63.8 % (40.0-70.0) 11/23/18 06:48 Seg Neuts % (Manual) 87.0 % (40.0-70.0) H 11/13/18 14:00 0 % 11/13/18 14:00 5.0 % (13.4-35.0) L 11/13/18 14:00 Reactive Lymphs % (Man) 0 % 11/13/18 14:00 1.0 % (0.0-7.3) 11/13/18 14:00 7.0 % (0.0-4.3) H 11/13/18 14:00 0 % (0.0-1.8) 11/13/18 14:00 0 % 11/13/18 14:00 0 % 11/13/18 14:00 0 % 11/13/18 14:00 0 % 11/13/18 14:00 Nucleated RBC % Not Reportable 11/13/18 14:00 Seg Neutrophils # 5.0 K/mm3 (1.8-7.7) 11/23/18 06:48 Seg Neutrophils # Man 3.3 K/mm3 (1.8-7.7) 11/13/18 14:00 Band Neutrophils # 0.0 K/mm3 11/13/18 14:00 0.2 K/mm3 (1.2-5.4) L 11/13/18 14:00 Abs React Lymphs (Man) 0.0 K/mm3 11/13/18 14:00 0.0 K/mm3 (0.0-0.8) 11/13/18 14:00 0.3 K/mm3 (0.0-0.4) 11/13/18 14:00 0.0 K/mm3 (0.0-0.1) 11/13/18 14:00 0.0 K/mm3 11/13/18 14:00 0.0 K/mm3 11/13/18 14:00 0.0 K/mm3 11/13/18 14:00 Blast Cells # 0.0 K/mm3 11/13/18 14:00 WBC Morphology Not Reportable 11/13/18 14:00 Hypersegmented Neuts Not Reportable 11/13/18 14:00 Hyposegmented Neuts Not Reportable 11/13/18 14:00 Hypogranular Neuts Not Reportable 11/13/18 14:00 Not Reportable 11/13/18 14:00 Not Reportable 11/13/18 14:00 Not Reportable 11/13/18 14:00 Not Reportable 11/13/18 14:00 Not Reportable 11/13/18 14:00 Not Reportable 11/13/18 14:00 Consistent w auto 11/13/18 14:00 Not Reportable 11/13/18 14:00 Plt Clumps, EDTA Not Reportable 11/13/18 14:00 Not Reportable 11/13/18 14:00 Not Reportable 11/13/18 14:00 Not Reportable 11/13/18 14:00 Plt Morphology Comment Not Reportable 11/13/18 14:00 RBC Morphology Not Reportable 11/13/18 14:00 Dimorphic RBCs Not Reportable 11/13/18 14:00 Few 11/13/18 14:00 Not Reportable 11/13/18 14:00 Few 11/13/18 14:00 1+ 11/13/18 14:00 Not Reportable 11/13/18 14:00 Not Reportable 11/13/18 14:00 Few 11/13/18 14:00 Not Reportable 11/13/18 14:00 Not Reportable 11/13/18 14:00 Not Reportable 11/13/18 14:00 Not Reportable 11/13/18 14:00 Not Reportable 11/13/18 14:00 Not Reportable 11/13/18 14:00 Not Reportable 11/13/18 14:00 Not Reportable 11/13/18 14:00 Not Reportable 11/13/18 14:00 Not Reportable 11/13/18 14:00 Not Reportable 11/13/18 14:00 Not Reportable 11/13/18 14:00 Acanthocytes (Spur) Not Reportable 11/13/18 14:00 Rouleaux Not Reportable 11/13/18 14:00 Not Reportable 11/13/18 14:00 Not Reportable 11/13/18 14:00 Not Reportable 11/13/18 14:00 Not Reportable 11/13/18 14:00 Hem Pathologist Commnt No 11/13/18 14:00 POC ABG pH 7.414 (7.35-7.45) 11/23/18 05:26 ABG pH 7.367 pH Units (7.350-7.450) 11/24/18 20:50 POC ABG pCO2 35.8 (35-45) 11/23/18 05:26 ABG pCO2 45.8 mm Hg 11/24/18 20:50 POC ABG pO2 93 (80-105) 11/23/18 05:26 ABG pO2 89.9 mm Hg (80.0-90.0) 11/24/18 20:50 POC ABG HCO3 22.9 (22-26 mml/L) 11/23/18 05:26 ABG HCO3 25.7 mmol/L (20.0-26.0) 11/24/18 20:50 POC ABG Total CO2 24 (23-27mmol/L) 11/23/18 05:26 POC ABG O2 Sat 97 11/23/18 05:26 ABG O2 Saturation 97.1 % (95.0-99.0) 11/24/18 20:50 ABG O2 Content 6.4 (0.0-44) 11/24/18 20:50 POC ABG Base Excess -2 ((-2) - (+3)mmol/L) 11/23/18 05:26 ABG Base Excess 0.4 mmol/L (-2.0-3.0) 11/24/18 20:50 ABG Hemoglobin 8.2 gm/dl (14.0-18.0) L 11/24/18 20:50 ABG Carboxyhemoglobin 1.8 % (0.0-5.0) 11/24/18 20:50 ABG Methemoglobin 0.5 % (0.0-1.5) 11/24/18 20:50 94.8 % (95.0-99.0) L 11/24/18 20:50 28 % 11/24/18 20:50 Sodium 140 mmol/L (137-145) 12/01/18 06:45 Potassium 4.2 mmol/L (3.6-5.0) 12/01/18 06:45 Chloride 101.8 mmol/L (98-107) 12/01/18 06:45 Carbon Dioxide 32 mmol/L (22-30) H 12/01/18 06:45 10 mmol/L 12/01/18 06:45 BUN 23 mg/dL (9-20) H 12/01/18 06:45 0.4 mg/dL (0.8-1.5) L 12/01/18 06:45 Estimated GFR > 60 ml/min 12/01/18 06:45 58 % 12/01/18 06:45 Glucose 139 mg/dL (75-100) H 12/01/18 06:45 POC Glucose 151 (70-105) H 12/02/18 12:05 Lactic Acid 1.60 mmol/L (0.7-2.0) 11/14/18 12:50 Calcium 8.0 mg/dL (8.4-10.2) L 12/01/18 06:45 Magnesium 2.00 mg/dL (1.7-2.3) 11/26/18 05:50 0.70 mg/dL (0.1-1.2) 11/13/18 14:00 AST 154 units/L (5-40) H 11/13/18 14:00 ALT 134 units/L (7-56) H 11/13/18 14:00 586 units/L (35-129) H 11/13/18 14:00 510 units/L (55-170) H 11/13/18 14:49 CK-MB (CK-2) 4.4 ng/mL (0.0-4.0) H 11/13/18 14:49 CK-MB (CK-2) Rel Index 0.8 (0-4) 11/13/18 14:49 0.348 ng/mL (0.00-0.029) H* 11/13/18 14:49 NT-Pro-B Natriuret Pep 3679 pg/mL (0-900) H 11/13/18 14:49 6.8 g/dL (6.3-8.2) 11/13/18 14:00 1.2 g/dL (3.9-5) L 11/13/18 14:00 0.2 % 11/13/18 14:00 Triglycerides 284 mg/dL (2-149) H 11/13/18 14:49 Cholesterol 56 mg/dL (50-199) 11/13/18 14:49 4 mg/dL (50-130) L 11/13/18 14:49 7 mg/dL (40-59) L 11/13/18 14:49 8.00 % 11/13/18 14:49 Yellow (Yellow) 11/13/18 14:44 Slightly-cloudy (Clear) 11/13/18 14:44 6.0 (5.0-7.0) 11/13/18 14:44 Ur Specific [place] 1.017 (1.003-1.030) 11/13/18 14:44 30 mg/dl mg/dL (Negative) 11/13/18 14:44 Neg mg/dL (Negative) 11/13/18 14:44 Neg mg/dL (Negative) 11/13/18 14:44 Neg (Negative) 11/13/18 14:44 Neg (Negative) 11/13/18 14:44 Neg (Negative) 11/13/18 14:44 4.0 mg/dL (<2.0) 11/13/18 14:44 Ur Leukocyte Esterase Mod (Negative) 11/13/18 14:44 36.0 /HPF (0.0-6.0) H 11/13/18 14:44 21.0 /HPF (0.0-6.0) 11/13/18 14:44 1+ /HPF (Negative) 11/13/18 14:44 Few /HPF 11/13/18 14:44 3+ /HPF 11/13/18 14:44 Hepatitis A IgM Ab Non-reactive (NonReactive) 11/14/18 02:00 Hep Bs Antigen Non-reactive (Negative) 11/14/18 02:00 Hep B Core IgM Ab Non-reactive (NonReactive) 11/14/18 02:00 Non-reactive (NonReactive) 11/14/18 02:00 HIV 1&2 Antibody Rapid Non react (Non React) 11/14/18 02:00 Non react (Non React) 11/14/18 02:00 Blood Type O POSITIVE 11/13/18 14:49 Antibody Screen Negative 11/13/18 14:49 Crossmatch See Detail 11/13/18 14:49 Active Medications - Current Medications Current Medications: Generic Name Dose Route Start Last Admin Trade Name Freq PRN Reason Stop Dose Admin Albuterol 2.5 mg 11/19/18 17:21 Proventil IH Q6HRT PRN Shortness Of Breath Amlodipine Besylate 5 mg 11/20/18 13:00 12/02/18 10:16 Norvasc PO 5 mg QDAY LENCHO Administration Lipase/Protease/Amylase 1 each 11/14/18 14:[address] 10,500 Unit FEEDTUBE PRN PRN For Clogged Feeding Tube Glycopyrrolate 2 mg 11/25/18 14:00 12/02/18 07:27 Robinul PO 2 mg Q8HR LENCHO Administration Heparin Sodium (Porcine) 5,000 unit 11/14/18 03:30 12/02/18 10:16 Heparin SUB-Q 5,000 unit Q12HR LENCHO Administration Hydralazine HCl 10 mg 11/20/18 12:30 12/01/18 23:29 Apresoline IV 10 mg Q4H PRN Administration Blood Pressure Hydrophilic Ointment 1 applic 11/24/18 08:23 12/02/18 07:58 Vaseline Lip Therapy TP 1 applic Q2HR PRN Administration Dry Lips Insulin Glargine 20 units 11/23/18 22:00 12/01/18 22:31 Lantus SUB-Q 20 units QHS LENCHO Administration Insulin Human Lispro 0 unit 11/14/18 06:00 12/02/18 12:38 Humalog SUB-Q 2 unit Q6HR LENCHO Administration Protocol Lansoprazole 30 mg 11/16/18 10:00 12/02/18 10:16 Prevacid Solutab FEEDTUBE 30 mg QDAY LENCHO Administration Multi-Ingred Cream/Lotion/Oil/Oint 1 applic 11/24/18 08:23 11/30/18 09:08 Artificial Tears Ophth Oint OU 1 applic Q4HR PRN Administration Dry Eye(s) Scopolamine 1 each 11/19/18 15:00 12/01/18 15:30 Transderm-Scop TD 1 each Q3D LENCHO Administration Simple Syrup 15 ml 11/14/18 14:20 Simple Syrup FEEDTUBE PRN PRN Hypoglycemia Simple Syrup 30 ml 11/14/18 14:20 Simple Syrup FEEDTUBE PRN PRN Hypoglycemia Sodium Bicarbonate 325 mg 11/14/18 14:20 Sodium Bicarbonate FEEDTUBE PRN PRN For Clogged Feeding Tube Sodium Hypochlorite 1 applic 11/16/18 13:00 12/02/18 10:15 Dakin's Half Strength TP 1 applicatio BID LENCHO Administration Nutrition/Malnutrition Assess - Dietary Evaluation Nutrition/Malnutrition Findings: Nutrition Notes Start: 11/14/18 10:33 Freq: Status: Active Protocol: Document 12/01/18 11:20 LM (Rec: 12/01/18 11:35 LM [id number]) Nutrition Notes Initial or Follow up Reassessment Current Diagnosis Acute Kidney Injury,Decubitus( Pressure Ulcer),Diabetes, Sepsis,Hypertension,Heart Failure,Respiratory Failure, Stroke Other Pertinent Diagnosis sacral wound, UTI, Dysphagia, Chronic encephalopathy Current Diet Vital AF 1.2 at 60 ml/hr Labs/Tests BUN 23 Cr 0.4 BG 139 Pertinent Medications Reviewed Height 5 ft 9 in Weight 98 kg [place] Body Weight (kg) 72.72 BMI 31.8 Subjective/Other Information Vital AF 1.2 running at 60 ml/ hr at time of visit. Pt is tolerating TF. Percent of energy/protein needs met: 93%/100% Burn Absent Trauma Absent #1 Nutrition Diagnosis Inadequate oral intake Diagnosis Progress(for reassessment Continues documentation) Is patient on ventilator? No Is Patient Ambulatory and/or Out of Bed No REE-([facility]-confined to bed) 2033.768 Calculation Used for Recommendations [facility] Additional Notes Pro needs 1.2-2g/k-168g/ day Fluid needs 1ml/kcal Nutrition Intervention Change Diet Order: Continue TF Nutrition Support: Vital AF 1.2 at 60ml/hr with 100ml water flush q4h. Kcal 1,728 Protein (gm) 108 Carbohydrates (gm) 159 Fat (gm) 78 Fluid (mL) 1,168 Fiber (gm) 7 Goal #1 TF to meet at least 75% of energy and protein needs Goal #2 Wound healing Anticipated Discharge Needs: Unable to determine at this time Follow-Up By: 12/08/18 Additional Comments F/U for TF tolerance and rate
--- NOTE | 2018-12-02 17:34 | Progress Note ---
Assessment and Plan Patgient not responding to verbal stimuli. Resting on T tube. FIO2 28% and O2 saturation running 95%. No acute respiratory distress.Patient afebrile. No leukocytosis. - Patient Problems (1) Acute and chronic respiratory failure Current Visit: No Status: Acute Qualifiers: Respiratory failure complication: hypoxia Qualified Code(s): J96.21 - Acute and chronic respiratory failure with hypoxia Plan to address problem: T tube FIO2 28%. Respiratory suctioning. Albuterol/atrovent aerosol treatments q 6 hours. Continue prevacid. Continue S/C Heparin. (2) History of tracheostomy Current Visit: No Status: Chronic Plan to address problem: Tracheostomy care by respiratory therapy. (3) CHF (congestive heart failure) Current Visit: Yes Status: Acute Qualifiers: Heart failure type: unspecified Heart failure chronicity: acute Qualified Code(s): I50.9 - Heart failure, unspecified Plan to address problem: Management as per primary care and cardiology. (4) Hypoxic encephalopathy Current Visit: Yes Status: Acute Plan to address problem: Management as per primary care and neurology. (5) Pleural effusion, left Current Visit: Yes Status: Acute Plan to address problem: Ordered ultrasound of the chest. Not done yet. (6) Sacral decubitus ulcer Current Visit: Yes Status: Acute Qualifiers: Pressure injury stage: unspecified pressure injury stage Qualified Code(s): L89.159 - Pressure ulcer of sacral region, unspecified stage Plan to address problem: Mangement as per wound care and infectious diseases. (7) Septic shock Current Visit: Yes Status: Acute Plan to address problem: Management as per Primary care and ID. (8) Urinary tract infection Current Visit: Yes Status: Acute Qualifiers: Urinary tract infection type: acute cystitis Hematuria presence: with hematuria Qualified Code(s): N30.01 - Acute cystitis with hematuria Plan to address problem: Management as per Primary care and ID. (9) MAYLIN (acute kidney injury) Current Visit: No Status: Acute Plan to address problem: Management as per nephrology. (10) Essential (primary) hypertension Current Visit: No Status: Acute Plan to address problem: Management as per primary care. Subjective Date of service: 12/02/18 Principal diagnosis: Severe sepsis with shock; Ac and ch resp failure; Metabolic encephalopathy Interval history: Patgient not responding to verbal stimuli. Resting on T tube. FIO2 28% and O2 saturation running 95%. No acute respiratory distress.Patient afebrile. No leukocytosis. Objective Vital Signs - 12hr 12/02/18 12/02/18 12/02/18 06:00 07:00 08:00 Temperature 98.1 F Pulse Rate 83 83 83 Pulse Rate [ 84 From Monitor] Respiratory 14 13 13 Rate Blood Pressure 147/69 144/73 139/67 O2 Sat by Pulse 99 99 100 Oximetry O2 Sat by Pulse Oximetry [ Assessment] 12/02/18 12/02/18 12/02/18 09:00 09:17 09:25 Temperature Pulse Rate 83 Pulse Rate [ From Monitor] Respiratory 12 Rate Blood Pressure 139/67 O2 Sat by Pulse 100 100 Oximetry O2 Sat by Pulse 100 Oximetry [ Assessment] 12/02/18 12/02/18 12/02/18 10:00 10:16 11:00 Temperature Pulse Rate 85 82 84 Pulse Rate [ From Monitor] Respiratory 12 13 Rate Blood Pressure 138/75 138/75 165/76 O2 Sat by Pulse 98 97 Oximetry O2 Sat by Pulse Oximetry [ Assessment] 12/02/18 12/02/18 12/02/18 12:00 13:00 16:00 Temperature 97.9 F 98 F Pulse Rate 84 86 79 Pulse Rate [ 82 79 From Monitor] Respiratory 11 L 12 15 Rate Blood Pressure 169/72 157/73 O2 Sat by Pulse 98 97 98 Oximetry O2 Sat by Pulse Oximetry [ Assessment] Constitutional: no acute distress, other (elderly looking AAM , unresponsive; trach in place to ATP, moderate secretions) Eyes: non-icteric ENT: oropharynx moist Neck: supple, no lymphadenopathy, no JVD, other (midline trach) Effort: normal Ascultation: Bilateral: diminished breath sounds, rales, rhonchi (scant in bases) Percussion: Bilateral: not dull Cardiovascular: regular rate and rhythm, other (S1,S2) Gastrointestinal: normoactive bowel sounds, soft, non-distended, other (PEG in place, chronic douglass catheter, scrotal edema) Integumentary: decubitus ulcer (see wound care notes) Extremities: no cyanosis, pink and warm, pulses normal, edema (2+) Neurologic: unable to assess, other (encephalopathic, unresponsive) Psychiatric: other (unable to assess) CBC and BMP: 12/01/18 06:45 09/03/19 06:45 ABG, PT/INR, D-dimer: ABG POC ABG pH 7.414 (7.35-7.45) 11/23/18 05:26 ABG pH 7.367 pH Units (7.350-7.450) 11/24/18 20:50 POC ABG pCO2 35.8 (35-45) 11/23/18 05:26 ABG pCO2 45.8 mm Hg 11/24/18 20:50 POC ABG pO2 93 (80-105) 11/23/18 05:26 ABG pO2 89.9 mm Hg (80.0-90.0) 11/24/18 20:50 POC ABG HCO3 22.9 (22-26 mml/L) 11/23/18 05:26 POC ABG Total CO2 24 (23-27mmol/L) 11/23/18 05:26 POC ABG O2 Sat 97 11/23/18 05:26 ABG O2 Saturation 97.1 % (95.0-99.0) 11/24/18 20:50 Abnormal lab findings: Abnormal Labs 11/13/18 11/13/18 11/13/18 03:30 14:00 14:00 WBC 3.8 L RBC 2.80 L Hgb 7.4 L Hct 22.9 L MCV 82 L MCH 27 L MCHC RDW 19.0 H Plt Count Lymph % (Auto) Bureau % (Auto) Eos % (Auto) Bureau # Seg Neutrophils % Seg Neuts % (Manual) 87.0 H Lymphocytes % (Manual) 5.0 L Eosinophils % (Manual) 7.0 H Seg Neutrophils # Lymphocytes # (Manual) 0.2 L POC ABG pH POC ABG pO2 ABG pO2 ABG Base Excess ABG Hemoglobin Oxyhemoglobin Sodium 147 H Potassium Chloride Carbon Dioxide 33 H BUN 50 H Creatinine Glucose 193 H POC Glucose Lactic Acid 3.70 H* Calcium 8.1 L Magnesium AST 154 H ALT 134 H Alkaline Phosphatase 586 H Total Creatine Kinase CK-MB (CK-2) Troponin T NT-Pro-B Natriuret Pep Albumin 1.2 L Triglycerides LDL Cholesterol Direct HDL Cholesterol Urine WBC (Auto) Crossmatch 11/13/18 11/13/18 11/13/18 14:00 14:44 14:49 WBC RBC Hgb Hct MCV MCH MCHC RDW Plt Count Lymph % (Auto) Bureau % (Auto) Eos % (Auto) Bureau # Seg Neutrophils % Seg Neuts % (Manual) Lymphocytes % (Manual) Eosinophils % (Manual) Seg Neutrophils # Lymphocytes # (Manual) POC ABG pH POC ABG pO2 ABG pO2 ABG Base Excess ABG Hemoglobin Oxyhemoglobin Sodium Potassium Chloride Carbon Dioxide BUN Creatinine Glucose POC Glucose Lactic Acid 2.60 H* Calcium Magnesium AST ALT Alkaline Phosphatase Total Creatine Kinase 510 H CK-MB (CK-2) 4.4 H Troponin T 0.348 H* NT-Pro-B Natriuret Pep 3679 H Albumin Triglycerides 284 H LDL Cholesterol Direct 4 L HDL Cholesterol 7 L Urine WBC (Auto) 36.0 H Crossmatch 11/13/18 11/13/18 11/13/18 14:49 14:49 14:52 WBC RBC Hgb Hct MCV MCH MCHC RDW Plt Count Lymph % (Auto) Bureau % (Auto) Eos % (Auto) Bureau # Seg Neutrophils % Seg Neuts % (Manual) Lymphocytes % (Manual) Eosinophils % (Manual) Seg Neutrophils # Lymphocytes # (Manual) POC ABG pH POC ABG pO2 ABG pO2 ABG Base Excess ABG Hemoglobin Oxyhemoglobin Sodium Potassium Chloride Carbon Dioxide BUN Creatinine Glucose POC Glucose 205 H Lactic Acid 3.90 H* Calcium Magnesium AST ALT Alkaline Phosphatase Total Creatine Kinase CK-MB (CK-2) Troponin T NT-Pro-B Natriuret Pep Albumin Triglycerides LDL Cholesterol Direct HDL Cholesterol Urine WBC (Auto) Crossmatch See Detail 11/13/18 11/13/18 11/13/18 16:58 17:13 19:46 WBC RBC Hgb Hct MCV MCH MCHC RDW Plt Count Lymph % (Auto) Bureau % (Auto) Eos % (Auto) Bureau # Seg Neutrophils % Seg Neuts % (Manual) Lymphocytes % (Manual) Eosinophils % (Manual) Seg Neutrophils # Lymphocytes # (Manual) POC ABG pH 7.573 H POC ABG pO2 ABG pO2 ABG Base Excess ABG Hemoglobin Oxyhemoglobin Sodium Potassium Chloride Carbon Dioxide BUN Creatinine Glucose POC Glucose Lactic Acid 3.90 H* 4.40 H* Calcium Magnesium AST ALT Alkaline Phosphatase Total Creatine Kinase CK-MB (CK-2) Troponin T NT-Pro-B Natriuret Pep Albumin Triglycerides LDL Cholesterol Direct HDL Cholesterol Urine WBC (Auto) Crossmatch 11/13/18 11/14/18 11/14/18 21:34 04:50 05:23 WBC RBC Hgb Hct MCV MCH MCHC RDW Plt Count Lymph % (Auto) Bureau % (Auto) Eos % (Auto) Bureau # Seg Neutrophils % Seg Neuts % (Manual) Lymphocytes % (Manual) Eosinophils % (Manual) Seg Neutrophils # Lymphocytes # (Manual) POC ABG pH POC ABG pO2 ABG pO2 120.8 H ABG Base Excess ABG Hemoglobin 10.9 L Oxyhemoglobin Sodium Potassium Chloride Carbon Dioxide BUN Creatinine Glucose POC Glucose 263 H Lactic Acid 4.50 H* Calcium Magnesium AST ALT Alkaline Phosphatase Total Creatine Kinase CK-MB (CK-2) Troponin T NT-Pro-B Natriuret Pep Albumin Triglycerides LDL Cholesterol Direct HDL Cholesterol Urine WBC (Auto) Crossmatch 11/14/18 11/14/18 11/14/18 05:46 08:02 12:42 WBC RBC Hgb Hct MCV MCH MCHC RDW Plt Count Lymph % (Auto) Bureau % (Auto) Eos % (Auto) Bureau # Seg Neutrophils % Seg Neuts % (Manual) Lymphocytes % (Manual) Eosinophils % (Manual) Seg Neutrophils # Lymphocytes # (Manual) POC ABG pH 7.463 H POC ABG pO2 136 H ABG pO2 ABG Base Excess ABG Hemoglobin Oxyhemoglobin Sodium Potassium Chloride Carbon Dioxide BUN Creatinine Glucose POC Glucose 213 H Lactic Acid 2.70 H* Calcium Magnesium AST ALT Alkaline Phosphatase Total Creatine Kinase CK-MB (CK-2) Troponin T NT-Pro-B Natriuret Pep Albumin Triglycerides LDL Cholesterol Direct HDL Cholesterol Urine WBC (Auto) Crossmatch 11/14/18 11/14/18 11/14/18 14:17 14:17 15:50 WBC 13.1 H 13.1 H RBC 2.36 L 2.36 L Hgb 6.1 L 6.1 L Hct 19.6 L* 19.4 L* MCV 83 L 82 L MCH 26 L 26 L MCHC 31 L 31 L RDW 19.4 H 19.3 H Plt Count Lymph % (Auto) Bureau % (Auto) Eos % (Auto) Bureau # Seg Neutrophils % Seg Neuts % (Manual) Lymphocytes % (Manual) Eosinophils % (Manual) Seg Neutrophils # Lymphocytes # (Manual) POC ABG pH POC ABG pO2 ABG pO2 ABG Base Excess ABG Hemoglobin Oxyhemoglobin Sodium 148 H Potassium Chloride 110.3 H Carbon Dioxide BUN 56 H Creatinine Glucose 203 H POC Glucose Lactic Acid Calcium 7.6 L Magnesium AST ALT Alkaline Phosphatase Total Creatine Kinase CK-MB (CK-2) Troponin T NT-Pro-B Natriuret Pep Albumin Triglycerides LDL Cholesterol Direct HDL Cholesterol Urine WBC (Auto) Crossmatch 11/14/18 11/14/18 11/15/18 18:19 23:52 05:10 WBC 16.2 H RBC 3.22 L Hgb 8.8 L Hct 26.8 L D MCV 83 L MCH 27 L MCHC RDW 16.8 H Plt Count Lymph % (Auto) Bureau % (Auto) Eos % (Auto) Bureau # Seg Neutrophils % Seg Neuts % (Manual) Lymphocytes % (Manual) Eosinophils % (Manual) Seg Neutrophils # Lymphocytes # (Manual) POC ABG pH POC ABG pO2 ABG pO2 ABG Base Excess ABG Hemoglobin Oxyhemoglobin Sodium Potassium Chloride Carbon Dioxide BUN Creatinine Glucose POC Glucose 213 H 242 H Lactic Acid Calcium Magnesium AST ALT Alkaline Phosphatase Total Creatine Kinase CK-MB (CK-2) Troponin T NT-Pro-B Natriuret Pep Albumin Triglycerides LDL Cholesterol Direct HDL Cholesterol Urine WBC (Auto) Crossmatch 11/15/18 11/15/18 11/15/18 05:10 05:36 11:15 WBC RBC Hgb Hct MCV MCH MCHC RDW Plt Count Lymph % (Auto) Bureau % (Auto) Eos % (Auto) Bureau # Seg Neutrophils % Seg Neuts % (Manual) Lymphocytes % (Manual) Eosinophils % (Manual) Seg Neutrophils # Lymphocytes # (Manual) POC ABG pH POC ABG pO2 ABG pO2 ABG Base Excess ABG Hemoglobin Oxyhemoglobin Sodium 148 H Potassium 3.5 L Chloride 112.8 H Carbon Dioxide BUN 51 H Creatinine Glucose 154 H POC Glucose 143 H 139 H Lactic Acid Calcium 7.8 L Magnesium AST ALT Alkaline Phosphatase Total Creatine Kinase CK-MB (CK-2) Troponin T NT-Pro-B Natriuret Pep Albumin Triglycerides LDL Cholesterol Direct HDL Cholesterol Urine WBC (Auto) Crossmatch 11/15/18 11/15/18 11/15/18 12:00 18:28 20:56 WBC RBC Hgb Hct MCV MCH MCHC RDW Plt Count Lymph % (Auto) Bureau % (Auto) Eos % (Auto) Bureau # Seg Neutrophils % Seg Neuts % (Manual) Lymphocytes % (Manual) Eosinophils % (Manual) Seg Neutrophils # Lymphocytes # (Manual) POC ABG pH POC ABG pO2 ABG pO2 ABG Base Excess ABG Hemoglobin Oxyhemoglobin Sodium 148 H Potassium 3.2 L Chloride 113.0 H Carbon Dioxide BUN 44 H Creatinine Glucose 144 H POC Glucose 159 H 150 H Lactic Acid Calcium 7.7 L Magnesium AST ALT Alkaline Phosphatase Total Creatine Kinase CK-MB (CK-2) Troponin T NT-Pro-B Natriuret Pep Albumin Triglycerides LDL Cholesterol Direct HDL Cholesterol Urine WBC (Auto) Crossmatch 11/15/18 11/16/18 11/16/18 23:32 03:40 03:45 WBC 16.1 H RBC 3.30 L Hgb 8.9 L Hct 27.9 L MCV MCH 27 L MCHC RDW 17.5 H Plt Count Lymph % (Auto) Bureau % (Auto) Eos % (Auto) Bureau # Seg Neutrophils % Seg Neuts % (Manual) Lymphocytes % (Manual) Eosinophils % (Manual) Seg Neutrophils # Lymphocytes # (Manual) POC ABG pH POC ABG pO2 ABG pO2 147.0 H ABG Base Excess ABG Hemoglobin 12.0 L Oxyhemoglobin Sodium Potassium Chloride Carbon Dioxide BUN Creatinine Glucose POC Glucose 131 H Lactic Acid Calcium Magnesium AST ALT Alkaline Phosphatase Total Creatine Kinase CK-MB (CK-2) Troponin T NT-Pro-B Natriuret Pep Albumin Triglycerides LDL Cholesterol Direct HDL Cholesterol Urine WBC (Auto) Crossmatch 11/16/18 11/16/18 11/16/18 03:45 05:15 15:14 WBC RBC Hgb Hct MCV MCH MCHC RDW Plt Count Lymph % (Auto) Bureau % (Auto) Eos % (Auto) Bureau # Seg Neutrophils % Seg Neuts % (Manual) Lymphocytes % (Manual) Eosinophils % (Manual) Seg Neutrophils # Lymphocytes # (Manual) POC ABG pH POC ABG pO2 ABG pO2 ABG Base Excess ABG Hemoglobin Oxyhemoglobin Sodium 149 H Potassium 3.5 L Chloride 116.2 H Carbon Dioxide 21 L BUN 41 H Creatinine Glucose 146 H POC Glucose 155 H 215 H Lactic Acid Calcium 7.7 L Magnesium AST ALT Alkaline Phosphatase Total Creatine Kinase CK-MB (CK-2) Troponin T NT-Pro-B Natriuret Pep Albumin Triglycerides LDL Cholesterol Direct HDL Cholesterol Urine WBC (Auto) Crossmatch 11/16/18 11/16/18 11/17/18 18:20 23:49 04:49 WBC 12.1 H RBC 3.34 L Hgb 9.0 L Hct 28.1 L MCV MCH 27 L MCHC RDW 17.5 H Plt Count Lymph % (Auto) Bureau % (Auto) Eos % (Auto) Bureau # Seg Neutrophils % Seg Neuts % (Manual) Lymphocytes % (Manual) Eosinophils % (Manual) Seg Neutrophils # Lymphocytes # (Manual) POC ABG pH POC ABG pO2 ABG pO2 ABG Base Excess ABG Hemoglobin Oxyhemoglobin Sodium Potassium Chloride Carbon Dioxide BUN Creatinine Glucose POC Glucose 230 H 189 H Lactic Acid Calcium Magnesium AST ALT Alkaline Phosphatase Total Creatine Kinase CK-MB (CK-2) Troponin T NT-Pro-B Natriuret Pep Albumin Triglycerides LDL Cholesterol Direct HDL Cholesterol Urine WBC (Auto) Crossmatch 11/17/18 11/17/18 11/17/18 04:49 05:45 14:16 WBC RBC Hgb Hct MCV MCH MCHC RDW Plt Count Lymph % (Auto) Bureau % (Auto) Eos % (Auto) Bureau # Seg Neutrophils % Seg Neuts % (Manual) Lymphocytes % (Manual) Eosinophils % (Manual) Seg Neutrophils # Lymphocytes # (Manual) POC ABG pH POC ABG pO2 ABG pO2 ABG Base Excess ABG Hemoglobin Oxyhemoglobin Sodium 150 H Potassium 3.2 L Chloride 118.9 H Carbon Dioxide 20 L BUN 38 H Creatinine 0.7 L Glucose 164 H POC Glucose 181 H 172 H Lactic Acid Calcium 7.7 L Magnesium AST ALT Alkaline Phosphatase Total Creatine Kinase CK-MB (CK-2) Troponin T NT-Pro-B Natriuret Pep Albumin Triglycerides LDL Cholesterol Direct HDL Cholesterol Urine WBC (Auto) Crossmatch 11/17/18 11/17/18 11/18/18 23:36 Unknown 04:10 WBC RBC Hgb Hct MCV MCH MCHC RDW Plt Count Lymph % (Auto) Bureau % (Auto) Eos % (Auto) Bureau # Seg Neutrophils % Seg Neuts % (Manual) Lymphocytes % (Manual) Eosinophils % (Manual) Seg Neutrophils # Lymphocytes # (Manual) POC ABG pH POC ABG pO2 ABG pO2 105.9 H 101.8 H ABG Base Excess -2.3 L -3.2 L ABG Hemoglobin 11.5 L 10.2 L Oxyhemoglobin Sodium Potassium Chloride Carbon Dioxide BUN Creatinine Glucose POC Glucose 214 H Lactic Acid Calcium Magnesium AST ALT Alkaline Phosphatase Total Creatine Kinase CK-MB (CK-2) Troponin T NT-Pro-B Natriuret Pep Albumin Triglycerides LDL Cholesterol Direct HDL Cholesterol Urine WBC (Auto) Crossmatch 11/18/18 11/18/18 11/18/18 04:37 04:37 05:36 WBC RBC 3.10 L Hgb 8.5 L Hct 26.8 L MCV MCH 27 L MCHC RDW 17.8 H Plt Count Lymph % (Auto) 12.8 L Bureau % (Auto) 8.5 H Eos % (Auto) Bureau # 0.9 H Seg Neutrophils % 75.8 H Seg Neuts % (Manual) Lymphocytes % (Manual) Eosinophils % (Manual) Seg Neutrophils # 8.0 H Lymphocytes # (Manual) POC ABG pH POC ABG pO2 ABG pO2 ABG Base Excess ABG Hemoglobin Oxyhemoglobin Sodium 148 H Potassium 3.3 L Chloride 118.3 H Carbon Dioxide 20 L BUN 32 H Creatinine 0.7 L Glucose 154 H POC Glucose 171 H Lactic Acid Calcium 7.4 L Magnesium AST ALT Alkaline Phosphatase Total Creatine Kinase CK-MB (CK-2) Troponin T NT-Pro-B Natriuret Pep Albumin Triglycerides LDL Cholesterol Direct HDL Cholesterol Urine WBC (Auto) Crossmatch 11/18/18 11/18/18 11/18/18 12:10 17:27 23:56 WBC RBC Hgb Hct MCV MCH MCHC RDW Plt Count Lymph % (Auto) Bureau % (Auto) Eos % (Auto) Bureau # Seg Neutrophils % Seg Neuts % (Manual) Lymphocytes % (Manual) Eosinophils % (Manual) Seg Neutrophils # Lymphocytes # (Manual) POC ABG pH POC ABG pO2 ABG pO2 ABG Base Excess ABG Hemoglobin Oxyhemoglobin Sodium Potassium Chloride Carbon Dioxide BUN Creatinine Glucose POC Glucose 244 H 239 H 241 H Lactic Acid Calcium Magnesium AST ALT Alkaline Phosphatase Total Creatine Kinase CK-MB (CK-2) Troponin T NT-Pro-B Natriuret Pep Albumin Triglycerides LDL Cholesterol Direct HDL Cholesterol Urine WBC (Auto) Crossmatch 11/19/18 11/19/18 11/19/18 03:45 04:27 06:37 WBC RBC Hgb Hct MCV MCH MCHC RDW Plt Count Lymph % (Auto) Bureau % (Auto) Eos % (Auto) Bureau # Seg Neutrophils % Seg Neuts % (Manual) Lymphocytes % (Manual) Eosinophils % (Manual) Seg Neutrophils # Lymphocytes # (Manual) POC ABG pH POC ABG pO2 ABG pO2 95.5 H ABG Base Excess -4.0 L ABG Hemoglobin 5.9 L Oxyhemoglobin Sodium 147 H Potassium Chloride 119.2 H Carbon Dioxide 20 L BUN 28 H Creatinine 0.6 L Glucose 181 H POC Glucose 220 H Lactic Acid Calcium 7.6 L Magnesium AST ALT Alkaline Phosphatase Total Creatine Kinase CK-MB (CK-2) Troponin T NT-Pro-B Natriuret Pep Albumin Triglycerides LDL Cholesterol Direct HDL Cholesterol Urine WBC (Auto) Crossmatch 11/19/18 11/19/18 11/19/18 06:41 11:27 17:31 WBC RBC 3.28 L Hgb 9.0 L Hct 28.2 L MCV MCH MCHC RDW 17.9 H Plt Count Lymph % (Auto) Bureau % (Auto) 11.0 H Eos % (Auto) Bureau # 1.1 H Seg Neutrophils % Seg Neuts % (Manual) Lymphocytes % (Manual) Eosinophils % (Manual) Seg Neutrophils # Lymphocytes # (Manual) POC ABG pH POC ABG pO2 ABG pO2 ABG Base Excess ABG Hemoglobin Oxyhemoglobin Sodium Potassium Chloride Carbon Dioxide BUN Creatinine Glucose POC Glucose 280 H 300 H Lactic Acid Calcium Magnesium AST ALT Alkaline Phosphatase Total Creatine Kinase CK-MB (CK-2) Troponin T NT-Pro-B Natriuret Pep Albumin Triglycerides LDL Cholesterol Direct HDL Cholesterol Urine WBC (Auto) Crossmatch 11/19/18 11/20/18 11/20/18 23:30 03:03 03:03 WBC RBC 3.04 L Hgb 8.4 L Hct 26.1 L MCV MCH MCHC RDW 18.1 H Plt Count Lymph % (Auto) Bureau % (Auto) 11.0 H Eos % (Auto) Bureau # 0.9 H Seg Neutrophils % Seg Neuts % (Manual) Lymphocytes % (Manual) Eosinophils % (Manual) Seg Neutrophils # Lymphocytes # (Manual) POC ABG pH POC ABG pO2 ABG pO2 ABG Base Excess ABG Hemoglobin Oxyhemoglobin Sodium 148 H Potassium Chloride 117.4 H Carbon Dioxide BUN 24 H Creatinine 0.6 L Glucose 238 H POC Glucose 251 H Lactic Acid Calcium 7.9 L Magnesium AST ALT Alkaline Phosphatase Total Creatine Kinase CK-MB (CK-2) Troponin T NT-Pro-B Natriuret Pep Albumin Triglycerides LDL Cholesterol Direct HDL Cholesterol Urine WBC (Auto) Crossmatch 11/20/18 11/20/18 11/20/18 04:20 05:15 12:21 WBC RBC Hgb Hct MCV MCH MCHC RDW Plt Count Lymph % (Auto) Bureau % (Auto) Eos % (Auto) Bureau # Seg Neutrophils % Seg Neuts % (Manual) Lymphocytes % (Manual) Eosinophils % (Manual) Seg Neutrophils # Lymphocytes # (Manual) POC ABG pH POC ABG pO2 ABG pO2 91.3 H ABG Base Excess -2.6 L ABG Hemoglobin 8.3 L Oxyhemoglobin Sodium Potassium Chloride Carbon Dioxide BUN Creatinine Glucose POC Glucose 213 H 318 H Lactic Acid Calcium Magnesium AST ALT Alkaline Phosphatase Total Creatine Kinase CK-MB (CK-2) Troponin T NT-Pro-B Natriuret Pep Albumin Triglycerides LDL Cholesterol Direct HDL Cholesterol Urine WBC (Auto) Crossmatch 11/20/18 11/20/18 11/20/18 18:01 20:50 23:36 WBC RBC Hgb Hct MCV MCH MCHC RDW Plt Count Lymph % (Auto) Bureau % (Auto) Eos % (Auto) Bureau # Seg Neutrophils % Seg Neuts % (Manual) Lymphocytes % (Manual) Eosinophils % (Manual) Seg Neutrophils # Lymphocytes # (Manual) POC ABG pH POC ABG pO2 ABG pO2 90.8 H ABG Base Excess -2.1 L ABG Hemoglobin 13.4 L Oxyhemoglobin 94.9 L Sodium Potassium Chloride Carbon Dioxide BUN Creatinine Glucose POC Glucose 301 H 290 H Lactic Acid Calcium Magnesium AST ALT Alkaline Phosphatase Total Creatine Kinase CK-MB (CK-2) Troponin T NT-Pro-B Natriuret Pep Albumin Triglycerides LDL Cholesterol Direct HDL Cholesterol Urine WBC (Auto) Crossmatch 11/21/18 11/21/18 11/21/18 03:09 03:09 05:10 WBC RBC 3.05 L Hgb 8.5 L Hct 26.1 L MCV MCH MCHC RDW 18.7 H Plt Count Lymph % (Auto) Bureau % (Auto) 12.2 H Eos % (Auto) Bureau # 0.9 H Seg Neutrophils % Seg Neuts % (Manual) Lymphocytes % (Manual) Eosinophils % (Manual) Seg Neutrophils # Lymphocytes # (Manual) POC ABG pH POC ABG pO2 ABG pO2 ABG Base Excess ABG Hemoglobin Oxyhemoglobin Sodium 150 H Potassium 3.5 L Chloride 118.5 H Carbon Dioxide BUN 22 H Creatinine 0.6 L Glucose 279 H POC Glucose 307 H Lactic Acid Calcium 7.7 L Magnesium AST ALT Alkaline Phosphatase Total Creatine Kinase CK-MB (CK-2) Troponin T NT-Pro-B Natriuret Pep Albumin Triglycerides LDL Cholesterol Direct HDL Cholesterol Urine WBC (Auto) Crossmatch 11/21/18 11/21/18 11/21/18 11:24 17:23 23:20 WBC RBC Hgb Hct MCV MCH MCHC RDW Plt Count Lymph % (Auto) Bureau % (Auto) Eos % (Auto) Bureau # Seg Neutrophils % Seg Neuts % (Manual) Lymphocytes % (Manual) Eosinophils % (Manual) Seg Neutrophils # Lymphocytes # (Manual) POC ABG pH POC ABG pO2 ABG pO2 ABG Base Excess ABG Hemoglobin Oxyhemoglobin Sodium Potassium Chloride Carbon Dioxide BUN Creatinine Glucose POC Glucose 324 H 288 H 254 H Lactic Acid Calcium Magnesium AST ALT Alkaline Phosphatase Total Creatine Kinase CK-MB (CK-2) Troponin T NT-Pro-B Natriuret Pep Albumin Triglycerides LDL Cholesterol Direct HDL Cholesterol Urine WBC (Auto) Crossmatch 11/22/18 11/22/18 11/22/18 03:50 05:43 06:10 WBC RBC 2.93 L Hgb 8.1 L Hct 25.2 L MCV MCH MCHC RDW 18.6 H Plt Count Lymph % (Auto) Bureau % (Auto) 10.9 H Eos % (Auto) 4.4 H Bureau # 0.9 H Seg Neutrophils % Seg Neuts % (Manual) Lymphocytes % (Manual) Eosinophils % (Manual) Seg Neutrophils # Lymphocytes # (Manual) POC ABG pH POC ABG pO2 ABG pO2 94.6 H ABG Base Excess ABG Hemoglobin 6.5 L Oxyhemoglobin Sodium Potassium Chloride Carbon Dioxide BUN Creatinine Glucose POC Glucose 227 H Lactic Acid Calcium Magnesium AST ALT Alkaline Phosphatase Total Creatine Kinase CK-MB (CK-2) Troponin T NT-Pro-B Natriuret Pep Albumin Triglycerides LDL Cholesterol Direct HDL Cholesterol Urine WBC (Auto) Crossmatch 11/22/18 11/22/18 11/22/18 06:10 11:35 17:07 WBC RBC Hgb Hct MCV MCH MCHC RDW Plt Count Lymph % (Auto) Bureau % (Auto) Eos % (Auto) Bureau # Seg Neutrophils % Seg Neuts % (Manual) Lymphocytes % (Manual) Eosinophils % (Manual) Seg Neutrophils # Lymphocytes # (Manual) POC ABG pH POC ABG pO2 ABG pO2 ABG Base Excess ABG Hemoglobin Oxyhemoglobin Sodium 146 H Potassium 3.3 L Chloride 114.8 H Carbon Dioxide BUN 21 H Creatinine 0.5 L Glucose 214 H POC Glucose 262 H 205 H Lactic Acid Calcium 7.7 L Magnesium AST ALT Alkaline Phosphatase Total Creatine Kinase CK-MB (CK-2) Troponin T NT-Pro-B Natriuret Pep Albumin Triglycerides LDL Cholesterol Direct HDL Cholesterol Urine WBC (Auto) Crossmatch 11/22/18 11/23/18 11/23/18 23:23 05:35 06:48 WBC RBC 2.90 L Hgb 8.0 L Hct 25.1 L MCV MCH MCHC RDW 18.7 H Plt Count Lymph % (Auto) Bureau % (Auto) 8.7 H Eos % (Auto) 4.5 H Bureau # Seg Neutrophils % Seg Neuts % (Manual) Lymphocytes % (Manual) Eosinophils % (Manual) Seg Neutrophils # Lymphocytes # (Manual) POC ABG pH POC ABG pO2 ABG pO2 ABG Base Excess ABG Hemoglobin Oxyhemoglobin Sodium Potassium Chloride Carbon Dioxide BUN Creatinine Glucose POC Glucose 165 H 140 H Lactic Acid Calcium Magnesium AST ALT Alkaline Phosphatase Total Creatine Kinase CK-MB (CK-2) Troponin T NT-Pro-B Natriuret Pep Albumin Triglycerides LDL Cholesterol Direct HDL Cholesterol Urine WBC (Auto) Crossmatch 11/23/18 11/23/18 11/23/18 06:48 12:00 17:16 WBC RBC Hgb Hct MCV MCH MCHC RDW Plt Count Lymph % (Auto) Bureau % (Auto) Eos % (Auto) Bureau # Seg Neutrophils % Seg Neuts % (Manual) Lymphocytes % (Manual) Eosinophils % (Manual) Seg Neutrophils # Lymphocytes # (Manual) POC ABG pH POC ABG pO2 ABG pO2 ABG Base Excess ABG Hemoglobin Oxyhemoglobin Sodium 146 H Potassium Chloride 115.4 H Carbon Dioxide BUN Creatinine 0.4 L Glucose 144 H POC Glucose 199 H 207 H Lactic Acid Calcium 7.8 L Magnesium AST ALT Alkaline Phosphatase Total Creatine Kinase CK-MB (CK-2) Troponin T NT-Pro-B Natriuret Pep Albumin Triglycerides LDL Cholesterol Direct HDL Cholesterol Urine WBC (Auto) Crossmatch 11/23/18 11/23/18 11/24/18 22:23 23:57 05:38 WBC RBC Hgb Hct MCV MCH MCHC RDW Plt Count Lymph % (Auto) Bureau % (Auto) Eos % (Auto) Bureau # Seg Neutrophils % Seg Neuts % (Manual) Lymphocytes % (Manual) Eosinophils % (Manual) Seg Neutrophils # Lymphocytes # (Manual) POC ABG pH POC ABG pO2 ABG pO2 ABG Base Excess ABG Hemoglobin Oxyhemoglobin Sodium Potassium Chloride Carbon Dioxide BUN Creatinine Glucose POC Glucose 186 H 172 H 137 H Lactic Acid Calcium Magnesium AST ALT Alkaline Phosphatase Total Creatine Kinase CK-MB (CK-2) Troponin T NT-Pro-B Natriuret Pep Albumin Triglycerides LDL Cholesterol Direct HDL Cholesterol Urine WBC (Auto) Crossmatch 11/24/18 11/24/18 11/24/18 12:23 17:53 20:50 WBC RBC Hgb Hct MCV MCH MCHC RDW Plt Count Lymph % (Auto) Bureau % (Auto) Eos % (Auto) Bureau # Seg Neutrophils % Seg Neuts % (Manual) Lymphocytes % (Manual) Eosinophils % (Manual) Seg Neutrophils # Lymphocytes # (Manual) POC ABG pH POC ABG pO2 ABG pO2 ABG Base Excess ABG Hemoglobin 8.2 L Oxyhemoglobin 94.8 L Sodium Potassium Chloride Carbon Dioxide BUN Creatinine Glucose POC Glucose 168 H 170 H Lactic Acid Calcium Magnesium AST ALT Alkaline Phosphatase Total Creatine Kinase CK-MB (CK-2) Troponin T NT-Pro-B Natriuret Pep Albumin Triglycerides LDL Cholesterol Direct HDL Cholesterol Urine WBC (Auto) Crossmatch 11/24/18 11/24/18 11/25/18 21:11 23:46 04:24 WBC RBC 2.78 L Hgb 7.7 L Hct 23.7 L MCV MCH MCHC RDW 18.7 H Plt Count Lymph % (Auto) Bureau % (Auto) Eos % (Auto) Bureau # Seg Neutrophils % Seg Neuts % (Manual) Lymphocytes % (Manual) Eosinophils % (Manual) Seg Neutrophils # Lymphocytes # (Manual) POC ABG pH POC ABG pO2 ABG pO2 ABG Base Excess ABG Hemoglobin Oxyhemoglobin Sodium Potassium Chloride Carbon Dioxide BUN Creatinine Glucose POC Glucose 190 H 169 H Lactic Acid Calcium Magnesium AST ALT Alkaline Phosphatase Total Creatine Kinase CK-MB (CK-2) Troponin T NT-Pro-B Natriuret Pep Albumin Triglycerides LDL Cholesterol Direct HDL Cholesterol Urine WBC (Auto) Crossmatch 11/25/18 11/25/18 11/25/18 04:24 04:24 05:14 WBC RBC Hgb Hct MCV MCH MCHC RDW Plt Count Lymph % (Auto) Bureau % (Auto) Eos % (Auto) Bureau # Seg Neutrophils % Seg Neuts % (Manual) Lymphocytes % (Manual) Eosinophils % (Manual) Seg Neutrophils # Lymphocytes # (Manual) POC ABG pH POC ABG pO2 ABG pO2 ABG Base Excess ABG Hemoglobin Oxyhemoglobin Sodium Potassium 3.5 L Chloride 108.1 H Carbon Dioxide BUN Creatinine 0.4 L Glucose 119 H POC Glucose 138 H Lactic Acid Calcium 7.9 L Magnesium 1.50 L AST ALT Alkaline Phosphatase Total Creatine Kinase CK-MB (CK-2) Troponin T NT-Pro-B Natriuret Pep Albumin Triglycerides LDL Cholesterol Direct HDL Cholesterol Urine WBC (Auto) Crossmatch 11/25/18 11/25/18 11/25/18 11:46 17:45 23:39 WBC RBC Hgb Hct MCV MCH MCHC RDW Plt Count Lymph % (Auto) Bureau % (Auto) Eos % (Auto) Bureau # Seg Neutrophils % Seg Neuts % (Manual) Lymphocytes % (Manual) Eosinophils % (Manual) Seg Neutrophils # Lymphocytes # (Manual) POC ABG pH POC ABG pO2 ABG pO2 ABG Base Excess ABG Hemoglobin Oxyhemoglobin Sodium Potassium Chloride Carbon Dioxide BUN Creatinine Glucose POC Glucose 160 H 107 H 118 H Lactic Acid Calcium Magnesium AST ALT Alkaline Phosphatase Total Creatine Kinase CK-MB (CK-2) Troponin T NT-Pro-B Natriuret Pep Albumin Triglycerides LDL Cholesterol Direct HDL Cholesterol Urine WBC (Auto) Crossmatch 11/26/18 11/26/18 11/26/18 05:43 05:50 05:50 WBC RBC 2.91 L Hgb 8.1 L Hct 25.1 L MCV MCH MCHC RDW 19.4 H Plt Count 127 L Lymph % (Auto) Bureau % (Auto) Eos % (Auto) Bureau # Seg Neutrophils % Seg Neuts % (Manual) Lymphocytes % (Manual) Eosinophils % (Manual) Seg Neutrophils # Lymphocytes # (Manual) POC ABG pH POC ABG pO2 ABG pO2 ABG Base Excess ABG Hemoglobin Oxyhemoglobin Sodium Potassium Chloride 109.7 H Carbon Dioxide BUN Creatinine 0.4 L Glucose 118 H POC Glucose 142 H Lactic Acid Calcium 8.0 L Magnesium AST ALT Alkaline Phosphatase Total Creatine Kinase CK-MB (CK-2) Troponin T NT-Pro-B Natriuret Pep Albumin Triglycerides LDL Cholesterol Direct HDL Cholesterol Urine WBC (Auto) Crossmatch 11/26/18 11/27/18 11/27/18 12:26 05:35 05:35 WBC RBC 2.99 L Hgb 8.3 L Hct 25.3 L MCV MCH MCHC RDW 18.4 H Plt Count 134 L Lymph % (Auto) Bureau % (Auto) Eos % (Auto) Bureau # Seg Neutrophils % Seg Neuts % (Manual) Lymphocytes % (Manual) Eosinophils % (Manual) Seg Neutrophils # Lymphocytes # (Manual) POC ABG pH POC ABG pO2 ABG pO2 ABG Base Excess ABG Hemoglobin Oxyhemoglobin Sodium Potassium Chloride Carbon Dioxide BUN Creatinine 0.5 L Glucose 110 H POC Glucose 129 H Lactic Acid Calcium 8.0 L Magnesium AST ALT Alkaline Phosphatase Total Creatine Kinase CK-MB (CK-2) Troponin T NT-Pro-B Natriuret Pep Albumin Triglycerides LDL Cholesterol Direct HDL Cholesterol Urine WBC (Auto) Crossmatch 11/27/18 11/27/18 11/27/18 12:30 17:26 22:38 WBC RBC Hgb Hct MCV MCH MCHC RDW Plt Count Lymph % (Auto) Bureau % (Auto) Eos % (Auto) Bureau # Seg Neutrophils % Seg Neuts % (Manual) Lymphocytes % (Manual) Eosinophils % (Manual) Seg Neutrophils # Lymphocytes # (Manual) POC ABG pH POC ABG pO2 ABG pO2 ABG Base Excess ABG Hemoglobin Oxyhemoglobin Sodium Potassium Chloride Carbon Dioxide BUN Creatinine Glucose POC Glucose 155 H 196 H 208 H Lactic Acid Calcium Magnesium AST ALT Alkaline Phosphatase Total Creatine Kinase CK-MB (CK-2) Troponin T NT-Pro-B Natriuret Pep Albumin Triglycerides LDL Cholesterol Direct HDL Cholesterol Urine WBC (Auto) Crossmatch 11/28/18 11/28/18 11/28/18 04:28 04:28 06:23 WBC RBC 2.72 L Hgb 7.7 L Hct 22.8 L MCV MCH MCHC RDW 18.7 H Plt Count 125 L Lymph % (Auto) Bureau % (Auto) Eos % (Auto) Bureau # Seg Neutrophils % Seg Neuts % (Manual) Lymphocytes % (Manual) Eosinophils % (Manual) Seg Neutrophils # Lymphocytes # (Manual) POC ABG pH POC ABG pO2 ABG pO2 ABG Base Excess ABG Hemoglobin Oxyhemoglobin Sodium Potassium Chloride Carbon Dioxide BUN 23 H Creatinine 0.4 L Glucose 112 H POC Glucose 125 H Lactic Acid Calcium 8.0 L Magnesium AST ALT Alkaline Phosphatase Total Creatine Kinase CK-MB (CK-2) Troponin T NT-Pro-B Natriuret Pep Albumin Triglycerides LDL Cholesterol Direct HDL Cholesterol Urine WBC (Auto) Crossmatch 11/28/18 11/28/18 11/29/18 12:07 17:58 00:27 WBC RBC Hgb Hct MCV MCH MCHC RDW Plt Count Lymph % (Auto) Bureau % (Auto) Eos % (Auto) Bureau # Seg Neutrophils % Seg Neuts % (Manual) Lymphocytes % (Manual) Eosinophils % (Manual) Seg Neutrophils # Lymphocytes # (Manual) POC ABG pH POC ABG pO2 ABG pO2 ABG Base Excess ABG Hemoglobin Oxyhemoglobin Sodium Potassium Chloride Carbon Dioxide BUN Creatinine Glucose POC Glucose 138 H 138 H 207 H Lactic Acid Calcium Magnesium AST ALT Alkaline Phosphatase Total Creatine Kinase CK-MB (CK-2) Troponin T NT-Pro-B Natriuret Pep Albumin Triglycerides LDL Cholesterol Direct HDL Cholesterol Urine WBC (Auto) Crossmatch 11/29/18 11/29/18 11/29/18 05:33 12:52 18:28 WBC RBC Hgb Hct MCV MCH MCHC RDW Plt Count Lymph % (Auto) Bureau % (Auto) Eos % (Auto) Bureau # Seg Neutrophils % Seg Neuts % (Manual) Lymphocytes % (Manual) Eosinophils % (Manual) Seg Neutrophils # Lymphocytes # (Manual) POC ABG pH POC ABG pO2 ABG pO2 ABG Base Excess ABG Hemoglobin Oxyhemoglobin Sodium Potassium Chloride Carbon Dioxide BUN Creatinine Glucose POC Glucose 173 H 128 H 127 H Lactic Acid Calcium Magnesium AST ALT Alkaline Phosphatase Total Creatine Kinase CK-MB (CK-2) Troponin T NT-Pro-B Natriuret Pep Albumin Triglycerides LDL Cholesterol Direct HDL Cholesterol Urine WBC (Auto) Crossmatch 11/30/18 11/30/18 11/30/18 00:09 05:23 05:58 WBC RBC 2.60 L Hgb 7.3 L Hct 21.8 L MCV MCH MCHC RDW 18.6 H Plt Count 119 L Lymph % (Auto) Bureau % (Auto) Eos % (Auto) Bureau # Seg Neutrophils % Seg Neuts % (Manual) Lymphocytes % (Manual) Eosinophils % (Manual) Seg Neutrophils # Lymphocytes # (Manual) POC ABG pH POC ABG pO2 ABG pO2 ABG Base Excess ABG Hemoglobin Oxyhemoglobin Sodium Potassium Chloride Carbon Dioxide BUN Creatinine Glucose POC Glucose 172 H 134 H Lactic Acid Calcium Magnesium AST ALT Alkaline Phosphatase Total Creatine Kinase CK-MB (CK-2) Troponin T NT-Pro-B Natriuret Pep Albumin Triglycerides LDL Cholesterol Direct HDL Cholesterol Urine WBC (Auto) Crossmatch 11/30/18 11/30/18 11/30/18 05:58 12:07 17:50 WBC RBC Hgb Hct MCV MCH MCHC RDW Plt Count Lymph % (Auto) Bureau % (Auto) Eos % (Auto) Bureau # Seg Neutrophils % Seg Neuts % (Manual) Lymphocytes % (Manual) Eosinophils % (Manual) Seg Neutrophils # Lymphocytes # (Manual) POC ABG pH POC ABG pO2 ABG pO2 ABG Base Excess ABG Hemoglobin Oxyhemoglobin Sodium Potassium Chloride Carbon Dioxide 31 H BUN 23 H Creatinine 0.4 L Glucose 121 H POC Glucose 138 H 192 H Lactic Acid Calcium 8.1 L Magnesium AST ALT Alkaline Phosphatase Total Creatine Kinase CK-MB (CK-2) Troponin T NT-Pro-B Natriuret Pep Albumin Triglycerides LDL Cholesterol Direct HDL Cholesterol Urine WBC (Auto) Crossmatch 12/01/18 12/01/18 12/01/18 01:25 05:57 05:58 WBC RBC Hgb Hct MCV MCH MCHC RDW Plt Count Lymph % (Auto) Bureau % (Auto) Eos % (Auto) Bureau # Seg Neutrophils % Seg Neuts % (Manual) Lymphocytes % (Manual) Eosinophils % (Manual) Seg Neutrophils # Lymphocytes # (Manual) POC ABG pH POC ABG pO2 ABG pO2 ABG Base Excess ABG Hemoglobin Oxyhemoglobin Sodium Potassium Chloride Carbon Dioxide BUN Creatinine Glucose POC Glucose 133 H < 40 L 148 H Lactic Acid Calcium Magnesium AST ALT Alkaline Phosphatase Total Creatine Kinase CK-MB (CK-2) Troponin T NT-Pro-B Natriuret Pep Albumin Triglycerides LDL Cholesterol Direct HDL Cholesterol Urine WBC (Auto) Crossmatch 12/01/18 12/01/18 12/01/18 06:45 06:45 12:15 WBC RBC 2.60 L Hgb 7.2 L Hct 21.7 L MCV MCH MCHC RDW 18.5 H Plt Count 124 L Lymph % (Auto) Bureau % (Auto) Eos % (Auto) Bureau # Seg Neutrophils % Seg Neuts % (Manual) Lymphocytes % (Manual) Eosinophils % (Manual) Seg Neutrophils # Lymphocytes # (Manual) POC ABG pH POC ABG pO2 ABG pO2 ABG Base Excess ABG Hemoglobin Oxyhemoglobin Sodium Potassium Chloride Carbon Dioxide 32 H BUN 23 H Creatinine 0.4 L Glucose 139 H POC Glucose 136 H Lactic Acid Calcium 8.0 L Magnesium AST ALT Alkaline Phosphatase Total Creatine Kinase CK-MB (CK-2) Troponin T NT-Pro-B Natriuret Pep Albumin Triglycerides LDL Cholesterol Direct HDL Cholesterol Urine WBC (Auto) Crossmatch 12/01/18 12/01/18 12/02/18 18:19 23:19 05:59 WBC RBC Hgb Hct MCV MCH MCHC RDW Plt Count Lymph % (Auto) Bureau % (Auto) Eos % (Auto) Bureau # Seg Neutrophils % Seg Neuts % (Manual) Lymphocytes % (Manual) Eosinophils % (Manual) Seg Neutrophils # Lymphocytes # (Manual) POC ABG pH POC ABG pO2 ABG pO2 ABG Base Excess ABG Hemoglobin Oxyhemoglobin Sodium Potassium Chloride Carbon Dioxide BUN Creatinine Glucose POC Glucose 152 H 208 H 107 H Lactic Acid Calcium Magnesium AST ALT Alkaline Phosphatase Total Creatine Kinase CK-MB (CK-2) Troponin T NT-Pro-B Natriuret Pep Albumin Triglycerides LDL Cholesterol Direct HDL Cholesterol Urine WBC (Auto) Crossmatch 12/02/18 12:05 WBC RBC Hgb Hct MCV MCH MCHC RDW Plt Count Lymph % (Auto) Bureau % (Auto) Eos % (Auto) Bureau # Seg Neutrophils % Seg Neuts % (Manual) Lymphocytes % (Manual) Eosinophils % (Manual) Seg Neutrophils # Lymphocytes # (Manual) POC ABG pH POC ABG pO2 ABG pO2 ABG Base Excess ABG Hemoglobin Oxyhemoglobin Sodium Potassium Chloride Carbon Dioxide BUN Creatinine Glucose POC Glucose 151 H Lactic Acid Calcium Magnesium AST ALT Alkaline Phosphatase Total Creatine Kinase CK-MB (CK-2) Troponin T NT-Pro-B Natriuret Pep Albumin Triglycerides LDL Cholesterol Direct HDL Cholesterol Urine WBC (Auto) Crossmatch Allied health notes reviewed: nursing
[2018-12-02] MEDS ORDERED: NACL 0.9% 500 ML 0 ML ONE (20:02)
[2018-12-02] MEDS: LANTUS SUB-Q SCH (21:57)
[2018-12-03] MEDS: HumaLOG SUB-Q SCH ×3 (00:24→13:14)
[2018-12-03] MEDS: DAKIN'S HALF STRENGTH TP SCH ×2 (02:00→10:23)
[2018-12-03] MEDS: ROBINUL PO SCH ×2 (06:13→13:13)
[2018-12-03] MEDS: APRESOLINE IV PRN ×2 (06:54→13:13)
--- NOTE | 2018-12-03 08:54 | Progress Note ---
Assessment and Plan Acute on chronic hypoxemic respiratory failure on MVS Severe sepsis with shock, off vasopressors VRE bacteremia UTI Large sacaral decubitus ulcer Acute on chronic metabolic encephalopathy Orophargyngeal dysphagia s/p PEG h/o CVAs Transaminitis probably secondary to hypotension Type 2 DM Hypernatremia Hypokalemia - keep on t-piece RTC as tolerated - keep on warming blanket for hypothermia - add Robinul for secretion control - get CXR to evaluate for aspiration - lasix 20 mgI.V. daily X 3 days - continue Lantus at 20 units SQ daily - continue amlodipine 5 mg p.o. daily - continue hydralazine 10 mg IV q4h prn SBP >/= 170 mmHg - continue scopolamine patch for secretion control - Trach care, airway clearance and secretion management - Lung protective strategies - Accuchecks with glycemic control, continue with insulin infusion per protocol - Douglass catheter for accurate intake and output monitoring in this critically ill patient with history of chronic douglass/urinary retention - Avoid nephrotoxins - VTE prophylaxis - Stress ulcer prophylaxis - Antibiotics per ID, de-escalate as indicated - Mobility and off loading for sacral decubitus - Wound care per RN & WCT - Optimize nutrition to help promote wound healing - Supportive transfusions as indicated, to keep HgB>7g/dL - Vasopressor support as indicated for MAP < 65 mmHg with blood pressure unresponsive to volume resuscitation - Continue to monitor hemodynamics closely - Keep Potassium at 4, to optimize respiratory muscle function - LTAC evaluation is ongoing - transfer to [facility] close to ICU ... re-evaluate in am & prn Awaiting further family decisions re goals of care CONDITION: IMPROVED PROGNOSIS; POOR CODE STATUS: FULL Subjective Date of service: 12/03/18 Principal diagnosis: Severe sepsis with shock; Ac and ch resp failure; Metabolic encephalopathy Interval history: Patient is seen today for: Severe sepsis with septic shock; Acute and chronic respiratory failure on MVS; Acute and chronic metabolic encephalopathy; Seen and examined at bedside; 24hour events reviewed; nursing and respiratory care staff consulted; resting peacefully in bed; Objective Vital Signs - 12hr 12/02/18 12/02/18 12/02/18 21:00 21:30 22:00 Temperature 96.9 F L Pulse Rate 80 80 79 Respiratory 22 15 16 Rate Blood Pressure 146/70 143/65 148/69 O2 Sat by Pulse 100 96 96 Oximetry O2 Sat by Pulse Oximetry [ Assessment] 12/02/18 12/02/18 12/03/18 22:12 23:00 00:00 Temperature Pulse Rate 80 85 79 Respiratory 17 15 17 Rate Blood Pressure 148/69 144/73 147/62 O2 Sat by Pulse 97 89 90 Oximetry O2 Sat by Pulse Oximetry [ Assessment] 12/03/18 12/03/18 12/03/18 00:28 01:00 01:17 Temperature 97.5 F L Pulse Rate 83 82 Respiratory 12 Rate Blood Pressure 144/64 O2 Sat by Pulse 88 Oximetry O2 Sat by Pulse Oximetry [ Assessment] 12/03/18 12/03/18 12/03/18 02:00 03:00 04:00 Temperature Pulse Rate 77 74 75 Respiratory 14 14 11 L Rate Blood Pressure 157/64 145/69 160/70 O2 Sat by Pulse 98 98 100 Oximetry O2 Sat by Pulse Oximetry [ Assessment] 12/03/18 12/03/18 12/03/18 04:21 05:00 05:19 Temperature 96.1 F L Pulse Rate 67 Respiratory 10 L Rate Blood Pressure 141/64 O2 Sat by Pulse 99 Oximetry O2 Sat by Pulse 100 Oximetry [ Assessment] 12/03/18 12/03/18 06:00 06:54 Temperature Pulse Rate 64 68 Respiratory 13 Rate Blood Pressure 149/72 170/70 O2 Sat by Pulse 100 Oximetry O2 Sat by Pulse Oximetry [ Assessment] Constitutional: no acute distress, other (elderly looking AAM , unresponsive; trach in place to ATP, moderate secretions) Eyes: non-icteric ENT: oropharynx moist Neck: supple, no lymphadenopathy, no JVD, other (midline trach) Effort: normal Ascultation: Bilateral: diminished breath sounds, rales, rhonchi (scant in bases ) Percussion: Bilateral: not dull Cardiovascular: regular rate and rhythm, other (S1,S2) Gastrointestinal: normoactive bowel sounds, soft, non-distended, other (PEG in place, chronic douglass catheter, scrotal edema) Integumentary: decubitus ulcer (see wound care notes) Extremities: no cyanosis, pink and warm, pulses normal, edema (2+) Neurologic: unable to assess, other (encephalopathic, unresponsive) Psychiatric: other (unable to assess) CBC and BMP: 12/01/18 06:45 12/01/18 06:45 ABG, PT/INR, D-dimer: ABG POC ABG pH 7.414 (7.35-7.45) 11/23/18 05:26 ABG pH 7.367 pH Units (7.350-7.450) 11/24/18 20:50 POC ABG pCO2 35.8 (35-45) 11/23/18 05:26 ABG pCO2 45.8 mm Hg 11/24/18 20:50 POC ABG pO2 93 (80-105) 11/23/18 05:26 ABG pO2 89.9 mm Hg (80.0-90.0) 11/24/18 20:50 POC ABG HCO3 22.9 (22-26 mml/L) 11/23/18 05:26 POC ABG Total CO2 24 (23-27mmol/L) 11/23/18 05:26 POC ABG O2 Sat 97 11/23/18 05:26 ABG O2 Saturation 97.1 % (95.0-99.0) 11/24/18 20:50 Abnormal lab findings: Abnormal Labs 11/13/18 11/13/18 11/13/18 03:30 14:00 14:00 WBC 3.8 L RBC 2.80 L Hgb 7.4 L Hct 22.9 L MCV 82 L MCH 27 L MCHC RDW 19.0 H Plt Count Lymph % (Auto) [place] % (Auto) Eos % (Auto) [place] # Seg Neutrophils % Seg Neuts % (Manual) 87.0 H Lymphocytes % (Manual) 5.0 L Eosinophils % (Manual) 7.0 H Seg Neutrophils # Lymphocytes # (Manual) 0.2 L POC ABG pH POC ABG pO2 ABG pO2 ABG Base Excess ABG Hemoglobin Oxyhemoglobin Sodium 147 H Potassium Chloride Carbon Dioxide 33 H BUN 50 H Creatinine Glucose 193 H POC Glucose Lactic Acid 3.70 H* Calcium 8.1 L Magnesium AST 154 H ALT 134 H Alkaline Phosphatase 586 H Total Creatine Kinase CK-MB (CK-2) Troponin T NT-Pro-B Natriuret Pep Albumin 1.2 L Triglycerides LDL Cholesterol Direct HDL Cholesterol Urine WBC (Auto) Crossmatch 11/13/18 11/13/18 11/13/18 14:00 14:44 14:49 WBC RBC Hgb Hct MCV MCH MCHC RDW Plt Count Lymph % (Auto) [place] % (Auto) Eos % (Auto) [place] # Seg Neutrophils % Seg Neuts % (Manual) Lymphocytes % (Manual) Eosinophils % (Manual) Seg Neutrophils # Lymphocytes # (Manual) POC ABG pH POC ABG pO2 ABG pO2 ABG Base Excess ABG Hemoglobin Oxyhemoglobin Sodium Potassium Chloride Carbon Dioxide BUN Creatinine Glucose POC Glucose Lactic Acid 2.60 H* Calcium Magnesium AST ALT Alkaline Phosphatase Total Creatine Kinase 510 H CK-MB (CK-2) 4.4 H Troponin T 0.348 H* NT-Pro-B Natriuret Pep 3679 H Albumin Triglycerides 284 H LDL Cholesterol Direct 4 L HDL Cholesterol 7 L Urine WBC (Auto) 36.0 H Crossmatch 11/13/18 11/13/18 11/13/18 14:49 14:49 14:52 WBC RBC Hgb Hct MCV MCH MCHC RDW Plt Count Lymph % (Auto) [place] % (Auto) Eos % (Auto) [place] # Seg Neutrophils % Seg Neuts % (Manual) Lymphocytes % (Manual) Eosinophils % (Manual) Seg Neutrophils # Lymphocytes # (Manual) POC ABG pH POC ABG pO2 ABG pO2 ABG Base Excess ABG Hemoglobin Oxyhemoglobin Sodium Potassium Chloride Carbon Dioxide BUN Creatinine Glucose POC Glucose 205 H Lactic Acid 3.90 H* Calcium Magnesium AST ALT Alkaline Phosphatase Total Creatine Kinase CK-MB (CK-2) Troponin T NT-Pro-B Natriuret Pep Albumin Triglycerides LDL Cholesterol Direct HDL Cholesterol Urine WBC (Auto) Crossmatch See Detail 11/13/18 11/13/18 11/13/18 16:58 17:13 19:46 WBC RBC Hgb Hct MCV MCH MCHC RDW Plt Count Lymph % (Auto) [place] % (Auto) Eos % (Auto) [place] # Seg Neutrophils % Seg Neuts % (Manual) Lymphocytes % (Manual) Eosinophils % (Manual) Seg Neutrophils # Lymphocytes # (Manual) POC ABG pH 7.573 H POC ABG pO2 ABG pO2 ABG Base Excess ABG Hemoglobin Oxyhemoglobin Sodium Potassium Chloride Carbon Dioxide BUN Creatinine Glucose POC Glucose Lactic Acid 3.90 H* 4.40 H* Calcium Magnesium AST ALT Alkaline Phosphatase Total Creatine Kinase CK-MB (CK-2) Troponin T NT-Pro-B Natriuret Pep Albumin Triglycerides LDL Cholesterol Direct HDL Cholesterol Urine WBC (Auto) Crossmatch 11/13/18 11/14/1811/14/19 21:34 04:50 05:23 WBC RBC Hgb Hct MCV MCH MCHC RDW Plt Count Lymph % (Auto) [place] % (Auto) Eos % (Auto) [place] # Seg Neutrophils % Seg Neuts % (Manual) Lymphocytes % (Manual) Eosinophils % (Manual) Seg Neutrophils # Lymphocytes # (Manual) POC ABG pH POC ABG pO2 ABG pO2 120.8 H ABG Base Excess ABG Hemoglobin 10.9 L Oxyhemoglobin Sodium Potassium Chloride Carbon Dioxide BUN Creatinine Glucose POC Glucose 263 H Lactic Acid 4.50 H* Calcium Magnesium AST ALT Alkaline Phosphatase Total Creatine Kinase CK-MB (CK-2) Troponin T NT-Pro-B Natriuret Pep Albumin Triglycerides LDL Cholesterol Direct HDL Cholesterol Urine WBC (Auto) Crossmatch 11/14/18 11/14/18 11/14/18 05:46 08:02 12:42 WBC RBC Hgb Hct MCV MCH MCHC RDW Plt Count Lymph % (Auto) [place] % (Auto) Eos % (Auto) [place] # Seg Neutrophils % Seg Neuts % (Manual) Lymphocytes % (Manual) Eosinophils % (Manual) Seg Neutrophils # Lymphocytes # (Manual) POC ABG pH 7.463 H POC ABG pO2 136 H ABG pO2 ABG Base Excess ABG Hemoglobin Oxyhemoglobin Sodium Potassium Chloride Carbon Dioxide BUN Creatinine Glucose POC Glucose 213 H Lactic Acid 2.70 H* Calcium Magnesium AST ALT Alkaline Phosphatase Total Creatine Kinase CK-MB (CK-2) Troponin T NT-Pro-B Natriuret Pep Albumin Triglycerides LDL Cholesterol Direct HDL Cholesterol Urine WBC (Auto) Crossmatch 11/14/18 11/14/18 11/14/18 14:17 14:17 15:50 WBC 13.1 H 13.1 H RBC 2.36 L 2.36 L Hgb 6.1 L 6.1 L Hct 19.6 L* 19.4 L* MCV 83 L 82 L MCH 26 L 26 L MCHC 31 L 31 L RDW 19.4 H 19.3 H Plt Count Lymph % (Auto) [place] % (Auto) Eos % (Auto) [place] # Seg Neutrophils % Seg Neuts % (Manual) Lymphocytes % (Manual) Eosinophils % (Manual) Seg Neutrophils # Lymphocytes # (Manual) POC ABG pH POC ABG pO2 ABG pO2 ABG Base Excess ABG Hemoglobin Oxyhemoglobin Sodium 148 H Potassium Chloride 110.3 H Carbon Dioxide BUN 56 H Creatinine Glucose 203 H POC Glucose Lactic Acid Calcium 7.6 L Magnesium AST ALT Alkaline Phosphatase Total Creatine Kinase CK-MB (CK-2) Troponin T NT-Pro-B Natriuret Pep Albumin Triglycerides LDL Cholesterol Direct HDL Cholesterol Urine WBC (Auto) Crossmatch 11/14/18 11/14/18 11/15/18 18:19 23:52 05:10 WBC 16.2 H RBC 3.22 L Hgb 8.8 L Hct 26.8 L D MCV 83 L MCH 27 L MCHC RDW 16.8 H Plt Count Lymph % (Auto) [place] % (Auto) Eos % (Auto) [place] # Seg Neutrophils % Seg Neuts % (Manual) Lymphocytes % (Manual) Eosinophils % (Manual) Seg Neutrophils # Lymphocytes # (Manual) POC ABG pH POC ABG pO2 ABG pO2 ABG Base Excess ABG Hemoglobin Oxyhemoglobin Sodium Potassium Chloride Carbon Dioxide BUN Creatinine Glucose POC Glucose 213 H 242 H Lactic Acid Calcium Magnesium AST ALT Alkaline Phosphatase Total Creatine Kinase CK-MB (CK-2) Troponin T NT-Pro-B Natriuret Pep Albumin Triglycerides LDL Cholesterol Direct HDL Cholesterol Urine WBC (Auto) Crossmatch 11/15/18 11/15/18 11/15/18 05:10 05:36 11:15 WBC RBC Hgb Hct MCV MCH MCHC RDW Plt Count Lymph % (Auto) [place] % (Auto) Eos % (Auto) [place] # Seg Neutrophils % Seg Neuts % (Manual) Lymphocytes % (Manual) Eosinophils % (Manual) Seg Neutrophils # Lymphocytes # (Manual) POC ABG pH POC ABG pO2 ABG pO2 ABG Base Excess ABG Hemoglobin Oxyhemoglobin Sodium 148 H Potassium 3.5 L Chloride 112.8 H Carbon Dioxide BUN 51 H Creatinine Glucose 154 H POC Glucose 143 H 139 H Lactic Acid Calcium 7.8 L Magnesium AST ALT Alkaline Phosphatase Total Creatine Kinase CK-MB (CK-2) Troponin T NT-Pro-B Natriuret Pep Albumin Triglycerides LDL Cholesterol Direct HDL Cholesterol Urine WBC (Auto) Crossmatch 11/15/18 11/15/18 11/15/18 12:00 18:28 20:56 WBC RBC Hgb Hct MCV MCH MCHC RDW Plt Count Lymph % (Auto) [place] % (Auto) Eos % (Auto) [place] # Seg Neutrophils % Seg Neuts % (Manual) Lymphocytes % (Manual) Eosinophils % (Manual) Seg Neutrophils # Lymphocytes # (Manual) POC ABG pH POC ABG pO2 ABG pO2 ABG Base Excess ABG Hemoglobin Oxyhemoglobin Sodium 148 H Potassium 3.2 L Chloride 113.0 H Carbon Dioxide BUN 44 H Creatinine Glucose 144 H POC Glucose 159 H 150 H Lactic Acid Calcium 7.7 L Magnesium AST ALT Alkaline Phosphatase Total Creatine Kinase CK-MB (CK-2) Troponin T NT-Pro-B Natriuret Pep Albumin Triglycerides LDL Cholesterol Direct HDL Cholesterol Urine WBC (Auto) Crossmatch 11/15/18 11/16/18 11/16/18 23:32 03:40 03:45 WBC 16.1 H RBC 3.30 L Hgb 8.9 L Hct 27.9 L MCV MCH 27 L MCHC RDW 17.5 H Plt Count Lymph % (Auto) [place] % (Auto) Eos % (Auto) [place] # Seg Neutrophils % Seg Neuts % (Manual) Lymphocytes % (Manual) Eosinophils % (Manual) Seg Neutrophils # Lymphocytes # (Manual) POC ABG pH POC ABG pO2 ABG pO2 147.0 H ABG Base Excess ABG Hemoglobin 12.0 L Oxyhemoglobin Sodium Potassium Chloride Carbon Dioxide BUN Creatinine Glucose POC Glucose 131 H Lactic Acid Calcium Magnesium AST ALT Alkaline Phosphatase Total Creatine Kinase CK-MB (CK-2) Troponin T NT-Pro-B Natriuret Pep Albumin Triglycerides LDL Cholesterol Direct HDL Cholesterol Urine WBC (Auto) Crossmatch 11/16/18 11/16/18 11/16/18 03:45 05:15 15:14 WBC RBC Hgb Hct MCV MCH MCHC RDW Plt Count Lymph % (Auto) [place] % (Auto) Eos % (Auto) [place] # Seg Neutrophils % Seg Neuts % (Manual) Lymphocytes % (Manual) Eosinophils % (Manual) Seg Neutrophils # Lymphocytes # (Manual) POC ABG pH POC ABG pO2 ABG pO2 ABG Base Excess ABG Hemoglobin Oxyhemoglobin Sodium 149 H Potassium 3.5 L Chloride 116.2 H Carbon Dioxide 21 L BUN 41 H Creatinine Glucose 146 H POC Glucose 155 H 215 H Lactic Acid Calcium 7.7 L Magnesium AST ALT Alkaline Phosphatase Total Creatine Kinase CK-MB (CK-2) Troponin T NT-Pro-B Natriuret Pep Albumin Triglycerides LDL Cholesterol Direct HDL Cholesterol Urine WBC (Auto) Crossmatch 11/16/18 11/16/18 11/17/18 18:20 23:49 04:49 WBC 12.1 H RBC 3.34 L Hgb 9.0 L Hct 28.1 L MCV MCH 27 L MCHC RDW 17.5 H Plt Count Lymph % (Auto) [place] % (Auto) Eos % (Auto) [place] # Seg Neutrophils % Seg Neuts % (Manual) Lymphocytes % (Manual) Eosinophils % (Manual) Seg Neutrophils # Lymphocytes # (Manual) POC ABG pH POC ABG pO2 ABG pO2 ABG Base Excess ABG Hemoglobin Oxyhemoglobin Sodium Potassium Chloride Carbon Dioxide BUN Creatinine Glucose POC Glucose 230 H 189 H Lactic Acid Calcium Magnesium AST ALT Alkaline Phosphatase Total Creatine Kinase CK-MB (CK-2) Troponin T NT-Pro-B Natriuret Pep Albumin Triglycerides LDL Cholesterol Direct HDL Cholesterol Urine WBC (Auto) Crossmatch 11/17/18 11/17/18 11/17/18 04:49 05:45 14:16 WBC RBC Hgb Hct MCV MCH MCHC RDW Plt Count Lymph % (Auto) [place] % (Auto) Eos % (Auto) [place] # Seg Neutrophils % Seg Neuts % (Manual) Lymphocytes % (Manual) Eosinophils % (Manual) Seg Neutrophils # Lymphocytes # (Manual) POC ABG pH POC ABG pO2 ABG pO2 ABG Base Excess ABG Hemoglobin Oxyhemoglobin Sodium 150 H Potassium 3.2 L Chloride 118.9 H Carbon Dioxide 20 L BUN 38 H Creatinine 0.7 L Glucose 164 H POC Glucose 181 H 172 H Lactic Acid Calcium 7.7 L Magnesium AST ALT Alkaline Phosphatase Total Creatine Kinase CK-MB (CK-2) Troponin T NT-Pro-B Natriuret Pep Albumin Triglycerides LDL Cholesterol Direct HDL Cholesterol Urine WBC (Auto) Crossmatch 11/17/18 11/17/18 11/18/18 23:36 Unknown 04:10 WBC RBC Hgb Hct MCV MCH MCHC RDW Plt Count Lymph % (Auto) [place] % (Auto) Eos % (Auto) [place] # Seg Neutrophils % Seg Neuts % (Manual) Lymphocytes % (Manual) Eosinophils % (Manual) Seg Neutrophils # Lymphocytes # (Manual) POC ABG pH POC ABG pO2 ABG pO2 105.9 H 101.8 H ABG Base Excess -2.3 L -3.2 L ABG Hemoglobin 11.5 L 10.2 L Oxyhemoglobin Sodium Potassium Chloride Carbon Dioxide BUN Creatinine Glucose POC Glucose 214 H Lactic Acid Calcium Magnesium AST ALT Alkaline Phosphatase Total Creatine Kinase CK-MB (CK-2) Troponin T NT-Pro-B Natriuret Pep Albumin Triglycerides LDL Cholesterol Direct HDL Cholesterol Urine WBC (Auto) Crossmatch 11/18/18 11/18/18 11/18/18 04:37 04:37 05:36 WBC RBC 3.10 L Hgb 8.5 L Hct 26.8 L MCV MCH 27 L MCHC RDW 17.8 H Plt Count Lymph % (Auto) 12.8 L [place] % (Auto) 8.5 H Eos % (Auto) [place] # 0.9 H Seg Neutrophils % 75.8 H Seg Neuts % (Manual) Lymphocytes % (Manual) Eosinophils % (Manual) Seg Neutrophils # 8.0 H Lymphocytes # (Manual) POC ABG pH POC ABG pO2 ABG pO2 ABG Base Excess ABG Hemoglobin Oxyhemoglobin Sodium 148 H Potassium 3.3 L Chloride 118.3 H Carbon Dioxide 20 L BUN 32 H Creatinine 0.7 L Glucose 154 H POC Glucose 171 H Lactic Acid Calcium 7.4 L Magnesium AST ALT Alkaline Phosphatase Total Creatine Kinase CK-MB (CK-2) Troponin T NT-Pro-B Natriuret Pep Albumin Triglycerides LDL Cholesterol Direct HDL Cholesterol Urine WBC (Auto) Crossmatch 11/18/18 11/18/18 11/18/18 12:10 17:27 23:56 WBC RBC Hgb Hct MCV MCH MCHC RDW Plt Count Lymph % (Auto) [place] % (Auto) Eos % (Auto) [place] # Seg Neutrophils % Seg Neuts % (Manual) Lymphocytes % (Manual) Eosinophils % (Manual) Seg Neutrophils # Lymphocytes # (Manual) POC ABG pH POC ABG pO2 ABG pO2 ABG Base Excess ABG Hemoglobin Oxyhemoglobin Sodium Potassium Chloride Carbon Dioxide BUN Creatinine Glucose POC Glucose 244 H 239 H 241 H Lactic Acid Calcium Magnesium AST ALT Alkaline Phosphatase Total Creatine Kinase CK-MB (CK-2) Troponin T NT-Pro-B Natriuret Pep Albumin Triglycerides LDL Cholesterol Direct HDL Cholesterol Urine WBC (Auto) Crossmatch 11/19/18 11/19/18 11/19/18 03:45 04:27 06:37 WBC RBC Hgb Hct MCV MCH MCHC RDW Plt Count Lymph % (Auto) [place] % (Auto) Eos % (Auto) [place] # Seg Neutrophils % Seg Neuts % (Manual) Lymphocytes % (Manual) Eosinophils % (Manual) Seg Neutrophils # Lymphocytes # (Manual) POC ABG pH POC ABG pO2 ABG pO2 95.5 H ABG Base Excess -4.0 L ABG Hemoglobin 5.9 L Oxyhemoglobin Sodium 147 H Potassium Chloride 119.2 H Carbon Dioxide 20 L BUN 28 H Creatinine 0.6 L Glucose 181 H POC Glucose 220 H Lactic Acid Calcium 7.6 L Magnesium AST ALT Alkaline Phosphatase Total Creatine Kinase CK-MB (CK-2) Troponin T NT-Pro-B Natriuret Pep Albumin Triglycerides LDL Cholesterol Direct HDL Cholesterol Urine WBC (Auto) Crossmatch 11/19/18 11/19/18 11/19/18 06:41 11:27 17:31 WBC RBC 3.28 L Hgb 9.0 L Hct 28.2 L MCV MCH MCHC RDW 17.9 H Plt Count Lymph % (Auto) [place] % (Auto) 11.0 H Eos % (Auto) [place] # 1.1 H Seg Neutrophils % Seg Neuts % (Manual) Lymphocytes % (Manual) Eosinophils % (Manual) Seg Neutrophils # Lymphocytes # (Manual) POC ABG pH POC ABG pO2 ABG pO2 ABG Base Excess ABG Hemoglobin Oxyhemoglobin Sodium Potassium Chloride Carbon Dioxide BUN Creatinine Glucose POC Glucose 280 H 300 H Lactic Acid Calcium Magnesium AST ALT Alkaline Phosphatase Total Creatine Kinase CK-MB (CK-2) Troponin T NT-Pro-B Natriuret Pep Albumin Triglycerides LDL Cholesterol Direct HDL Cholesterol Urine WBC (Auto) Crossmatch 11/19/18 11/20/18 11/20/18 23:30 03:03 03:03 WBC RBC 3.04 L Hgb 8.4 L Hct 26.1 L MCV MCH MCHC RDW 18.1 H Plt Count Lymph % (Auto) [place] % (Auto) 11.0 H Eos % (Auto) [place] # 0.9 H Seg Neutrophils % Seg Neuts % (Manual) Lymphocytes % (Manual) Eosinophils % (Manual) Seg Neutrophils # Lymphocytes # (Manual) POC ABG pH POC ABG pO2 ABG pO2 ABG Base Excess ABG Hemoglobin Oxyhemoglobin Sodium 148 H Potassium Chloride 117.4 H Carbon Dioxide BUN 24 H Creatinine 0.6 L Glucose 238 H POC Glucose 251 H Lactic Acid Calcium 7.9 L Magnesium AST ALT Alkaline Phosphatase Total Creatine Kinase CK-MB (CK-2) Troponin T NT-Pro-B Natriuret Pep Albumin Triglycerides LDL Cholesterol Direct HDL Cholesterol Urine WBC (Auto) Crossmatch 11/20/18 11/20/18 11/20/18 04:20 05:15 12:21 WBC RBC Hgb Hct MCV MCH MCHC RDW Plt Count Lymph % (Auto) [place] % (Auto) Eos % (Auto) [place] # Seg Neutrophils % Seg Neuts % (Manual) Lymphocytes % (Manual) Eosinophils % (Manual) Seg Neutrophils # Lymphocytes # (Manual) POC ABG pH POC ABG pO2 ABG pO2 91.3 H ABG Base Excess -2.6 L ABG Hemoglobin 8.3 L Oxyhemoglobin Sodium Potassium Chloride Carbon Dioxide BUN Creatinine Glucose POC Glucose 213 H 318 H Lactic Acid Calcium Magnesium AST ALT Alkaline Phosphatase Total Creatine Kinase CK-MB (CK-2) Troponin T NT-Pro-B Natriuret Pep Albumin Triglycerides LDL Cholesterol Direct HDL Cholesterol Urine WBC (Auto) Crossmatch 11/20/18 11/20/18 11/20/18 18:01 20:50 23:36 WBC RBC Hgb Hct MCV MCH MCHC RDW Plt Count Lymph % (Auto) [place] % (Auto) Eos % (Auto) [place] # Seg Neutrophils % Seg Neuts % (Manual) Lymphocytes % (Manual) Eosinophils % (Manual) Seg Neutrophils # Lymphocytes # (Manual) POC ABG pH POC ABG pO2 ABG pO2 90.8 H ABG Base Excess -2.1 L ABG Hemoglobin 13.4 L Oxyhemoglobin 94.9 L Sodium Potassium Chloride Carbon Dioxide BUN Creatinine Glucose POC Glucose 301 H 290 H Lactic Acid Calcium Magnesium AST ALT Alkaline Phosphatase Total Creatine Kinase CK-MB (CK-2) Troponin T NT-Pro-B Natriuret Pep Albumin Triglycerides LDL Cholesterol Direct HDL Cholesterol Urine WBC (Auto) Crossmatch 11/21/18 11/21/18 11/21/18 03:09 03:09 05:10 WBC RBC 3.05 L Hgb 8.5 L Hct 26.1 L MCV MCH MCHC RDW 18.7 H Plt Count Lymph % (Auto) [place] % (Auto) 12.2 H Eos % (Auto) [place] # 0.9 H Seg Neutrophils % Seg Neuts % (Manual) Lymphocytes % (Manual) Eosinophils % (Manual) Seg Neutrophils # Lymphocytes # (Manual) POC ABG pH POC ABG pO2 ABG pO2 ABG Base Excess ABG Hemoglobin Oxyhemoglobin Sodium 150 H Potassium 3.5 L Chloride 118.5 H Carbon Dioxide BUN 22 H Creatinine 0.6 L Glucose 279 H POC Glucose 307 H Lactic Acid Calcium 7.7 L Magnesium AST ALT Alkaline Phosphatase Total Creatine Kinase CK-MB (CK-2) Troponin T NT-Pro-B Natriuret Pep Albumin Triglycerides LDL Cholesterol Direct HDL Cholesterol Urine WBC (Auto) Crossmatch 11/21/18 11/21/18 11/21/18 11:24 17:23 23:20 WBC RBC Hgb Hct MCV MCH MCHC RDW Plt Count Lymph % (Auto) [place] % (Auto) Eos % (Auto) [place] # Seg Neutrophils % Seg Neuts % (Manual) Lymphocytes % (Manual) Eosinophils % (Manual) Seg Neutrophils # Lymphocytes # (Manual) POC ABG pH POC ABG pO2 ABG pO2 ABG Base Excess ABG Hemoglobin Oxyhemoglobin Sodium Potassium Chloride Carbon Dioxide BUN Creatinine Glucose POC Glucose 324 H 288 H 254 H Lactic Acid Calcium Magnesium AST ALT Alkaline Phosphatase Total Creatine Kinase CK-MB (CK-2) Troponin T NT-Pro-B Natriuret Pep Albumin Triglycerides LDL Cholesterol Direct HDL Cholesterol Urine WBC (Auto) Crossmatch 11/22/18 11/22/18 11/22/18 03:50 05:43 06:10 WBC RBC 2.93 L Hgb 8.1 L Hct 25.2 L MCV MCH MCHC RDW 18.6 H Plt Count Lymph % (Auto) [place] % (Auto) 10.9 H Eos % (Auto) 4.4 H [place] # 0.9 H Seg Neutrophils % Seg Neuts % (Manual) Lymphocytes % (Manual) Eosinophils % (Manual) Seg Neutrophils # Lymphocytes # (Manual) POC ABG pH POC ABG pO2 ABG pO2 94.6 H ABG Base Excess ABG Hemoglobin 6.5 L Oxyhemoglobin Sodium Potassium Chloride Carbon Dioxide BUN Creatinine Glucose POC Glucose 227 H Lactic Acid Calcium Magnesium AST ALT Alkaline Phosphatase Total Creatine Kinase CK-MB (CK-2) Troponin T NT-Pro-B Natriuret Pep Albumin Triglycerides LDL Cholesterol Direct HDL Cholesterol Urine WBC (Auto) Crossmatch 11/22/18 11/22/18 11/22/18 06:10 11:35 17:07 WBC RBC Hgb Hct MCV MCH MCHC RDW Plt Count Lymph % (Auto) [place] % (Auto) Eos % (Auto) [place] # Seg Neutrophils % Seg Neuts % (Manual) Lymphocytes % (Manual) Eosinophils % (Manual) Seg Neutrophils # Lymphocytes # (Manual) POC ABG pH POC ABG pO2 ABG pO2 ABG Base Excess ABG Hemoglobin Oxyhemoglobin Sodium 146 H Potassium 3.3 L Chloride 114.8 H Carbon Dioxide BUN 21 H Creatinine 0.5 L Glucose 214 H POC Glucose 262 H 205 H Lactic Acid Calcium 7.7 L Magnesium AST ALT Alkaline Phosphatase Total Creatine Kinase CK-MB (CK-2) Troponin T NT-Pro-B Natriuret Pep Albumin Triglycerides LDL Cholesterol Direct HDL Cholesterol Urine WBC (Auto) Crossmatch 11/22/18 11/23/18 11/23/18 23:23 05:35 06:48 WBC RBC 2.90 L Hgb 8.0 L Hct 25.1 L MCV MCH MCHC RDW 18.7 H Plt Count Lymph % (Auto) [place] % (Auto) 8.7 H Eos % (Auto) 4.5 H [place] # Seg Neutrophils % Seg Neuts % (Manual) Lymphocytes % (Manual) Eosinophils % (Manual) Seg Neutrophils # Lymphocytes # (Manual) POC ABG pH POC ABG pO2 ABG pO2 ABG Base Excess ABG Hemoglobin Oxyhemoglobin Sodium Potassium Chloride Carbon Dioxide BUN Creatinine Glucose POC Glucose 165 H 140 H Lactic Acid Calcium Magnesium AST ALT Alkaline Phosphatase Total Creatine Kinase CK-MB (CK-2) Troponin T NT-Pro-B Natriuret Pep Albumin Triglycerides LDL Cholesterol Direct HDL Cholesterol Urine WBC (Auto) Crossmatch 11/23/18 11/23/18 11/23/18 06:48 12:00 17:16 WBC RBC Hgb Hct MCV MCH MCHC RDW Plt Count Lymph % (Auto) [place] % (Auto) Eos % (Auto) [place] # Seg Neutrophils % Seg Neuts % (Manual) Lymphocytes % (Manual) Eosinophils % (Manual) Seg Neutrophils # Lymphocytes # (Manual) POC ABG pH POC ABG pO2 ABG pO2 ABG Base Excess ABG Hemoglobin Oxyhemoglobin Sodium 146 H Potassium Chloride 115.4 H Carbon Dioxide BUN Creatinine 0.4 L Glucose 144 H POC Glucose 199 H 207 H Lactic Acid Calcium 7.8 L Magnesium AST ALT Alkaline Phosphatase Total Creatine Kinase CK-MB (CK-2) Troponin T NT-Pro-B Natriuret Pep Albumin Triglycerides LDL Cholesterol Direct HDL Cholesterol Urine WBC (Auto) Crossmatch 11/23/18 11/23/18 11/24/18 22:23 23:57 05:38 WBC RBC Hgb Hct MCV MCH MCHC RDW Plt Count Lymph % (Auto) [place] % (Auto) Eos % (Auto) [place] # Seg Neutrophils % Seg Neuts % (Manual) Lymphocytes % (Manual) Eosinophils % (Manual) Seg Neutrophils # Lymphocytes # (Manual) POC ABG pH POC ABG pO2 ABG pO2 ABG Base Excess ABG Hemoglobin Oxyhemoglobin Sodium Potassium Chloride Carbon Dioxide BUN Creatinine Glucose POC Glucose 186 H 172 H 137 H Lactic Acid Calcium Magnesium AST ALT Alkaline Phosphatase Total Creatine Kinase CK-MB (CK-2) Troponin T NT-Pro-B Natriuret Pep Albumin Triglycerides LDL Cholesterol Direct HDL Cholesterol Urine WBC (Auto) Crossmatch 11/24/18 11/24/18 11/24/18 12:23 17:53 20:50 WBC RBC Hgb Hct MCV MCH MCHC RDW Plt Count Lymph % (Auto) [place] % (Auto) Eos % (Auto) [place] # Seg Neutrophils % Seg Neuts % (Manual) Lymphocytes % (Manual) Eosinophils % (Manual) Seg Neutrophils # Lymphocytes # (Manual) POC ABG pH POC ABG pO2 ABG pO2 ABG Base Excess ABG Hemoglobin 8.2 L Oxyhemoglobin 94.8 L Sodium Potassium Chloride Carbon Dioxide BUN Creatinine Glucose POC Glucose 168 H 170 H Lactic Acid Calcium Magnesium AST ALT Alkaline Phosphatase Total Creatine Kinase CK-MB (CK-2) Troponin T NT-Pro-B Natriuret Pep Albumin Triglycerides LDL Cholesterol Direct HDL Cholesterol Urine WBC (Auto) Crossmatch 11/24/18 11/24/18 11/25/18 21:11 23:46 04:24 WBC RBC 2.78 L Hgb 7.7 L Hct 23.7 L MCV MCH MCHC RDW 18.7 H Plt Count Lymph % (Auto) [place] % (Auto) Eos % (Auto) [place] # Seg Neutrophils % Seg Neuts % (Manual) Lymphocytes % (Manual) Eosinophils % (Manual) Seg Neutrophils # Lymphocytes # (Manual) POC ABG pH POC ABG pO2 ABG pO2 ABG Base Excess ABG Hemoglobin Oxyhemoglobin Sodium Potassium Chloride Carbon Dioxide BUN Creatinine Glucose POC Glucose 190 H 169 H Lactic Acid Calcium Magnesium AST ALT Alkaline Phosphatase Total Creatine Kinase CK-MB (CK-2) Troponin T NT-Pro-B Natriuret Pep Albumin Triglycerides LDL Cholesterol Direct HDL Cholesterol Urine WBC (Auto) Crossmatch 11/25/18 11/25/18 11/25/18 04:24 04:24 05:14 WBC RBC Hgb Hct MCV MCH MCHC RDW Plt Count Lymph % (Auto) [place] % (Auto) Eos % (Auto) [place] # Seg Neutrophils % Seg Neuts % (Manual) Lymphocytes % (Manual) Eosinophils % (Manual) Seg Neutrophils # Lymphocytes # (Manual) POC ABG pH POC ABG pO2 ABG pO2 ABG Base Excess ABG Hemoglobin Oxyhemoglobin Sodium Potassium 3.5 L Chloride 108.1 H Carbon Dioxide BUN Creatinine 0.4 L Glucose 119 H POC Glucose 138 H Lactic Acid Calcium 7.9 L Magnesium 1.50 L AST ALT Alkaline Phosphatase Total Creatine Kinase CK-MB (CK-2) Troponin T NT-Pro-B Natriuret Pep Albumin Triglycerides LDL Cholesterol Direct HDL Cholesterol Urine WBC (Auto) Crossmatch 11/25/18 11/25/18 11/25/18 11:46 17:45 23:39 WBC RBC Hgb Hct MCV MCH MCHC RDW Plt Count Lymph % (Auto) [place] % (Auto) Eos % (Auto) [place] # Seg Neutrophils % Seg Neuts % (Manual) Lymphocytes % (Manual) Eosinophils % (Manual) Seg Neutrophils # Lymphocytes # (Manual) POC ABG pH POC ABG pO2 ABG pO2 ABG Base Excess ABG Hemoglobin Oxyhemoglobin Sodium Potassium Chloride Carbon Dioxide BUN Creatinine Glucose POC Glucose 160 H 107 H 118 H Lactic Acid Calcium Magnesium AST ALT Alkaline Phosphatase Total Creatine Kinase CK-MB (CK-2) Troponin T NT-Pro-B Natriuret Pep Albumin Triglycerides LDL Cholesterol Direct HDL Cholesterol Urine WBC (Auto) Crossmatch 11/26/18 11/26/18 11/26/18 05:43 05:50 05:50 WBC RBC 2.91 L Hgb 8.1 L Hct 25.1 L MCV MCH MCHC RDW 19.4 H Plt Count 127 L Lymph % (Auto) [place] % (Auto) Eos % (Auto) [place] # Seg Neutrophils % Seg Neuts % (Manual) Lymphocytes % (Manual) Eosinophils % (Manual) Seg Neutrophils # Lymphocytes # (Manual) POC ABG pH POC ABG pO2 ABG pO2 ABG Base Excess ABG Hemoglobin Oxyhemoglobin Sodium Potassium Chloride 109.7 H Carbon Dioxide BUN Creatinine 0.4 L Glucose 118 H POC Glucose 142 H Lactic Acid Calcium 8.0 L Magnesium AST ALT Alkaline Phosphatase Total Creatine Kinase CK-MB (CK-2) Troponin T NT-Pro-B Natriuret Pep Albumin Triglycerides LDL Cholesterol Direct HDL Cholesterol Urine WBC (Auto) Crossmatch 11/26/18 11/27/18 11/27/18 12:26 05:35 05:35 WBC RBC 2.99 L Hgb 8.3 L Hct 25.3 L MCV MCH MCHC RDW 18.4 H Plt Count 134 L Lymph % (Auto) [place] % (Auto) Eos % (Auto) [place] # Seg Neutrophils % Seg Neuts % (Manual) Lymphocytes % (Manual) Eosinophils % (Manual) Seg Neutrophils # Lymphocytes # (Manual) POC ABG pH POC ABG pO2 ABG pO2 ABG Base Excess ABG Hemoglobin Oxyhemoglobin Sodium Potassium Chloride Carbon Dioxide BUN Creatinine 0.5 L Glucose 110 H POC Glucose 129 H Lactic Acid Calcium 8.0 L Magnesium AST ALT Alkaline Phosphatase Total Creatine Kinase CK-MB (CK-2) Troponin T NT-Pro-B Natriuret Pep Albumin Triglycerides LDL Cholesterol Direct HDL Cholesterol Urine WBC (Auto) Crossmatch 11/27/18 11/27/18 11/27/18 12:30 17:26 22:38 WBC RBC Hgb Hct MCV MCH MCHC RDW Plt Count Lymph % (Auto) [place] % (Auto) Eos % (Auto) [place] # Seg Neutrophils % Seg Neuts % (Manual) Lymphocytes % (Manual) Eosinophils % (Manual) Seg Neutrophils # Lymphocytes # (Manual) POC ABG pH POC ABG pO2 ABG pO2 ABG Base Excess ABG Hemoglobin Oxyhemoglobin Sodium Potassium Chloride Carbon Dioxide BUN Creatinine Glucose POC Glucose 155 H 196 H 208 H Lactic Acid Calcium Magnesium AST ALT Alkaline Phosphatase Total Creatine Kinase CK-MB (CK-2) Troponin T NT-Pro-B Natriuret Pep Albumin Triglycerides LDL Cholesterol Direct HDL Cholesterol Urine WBC (Auto) Crossmatch 11/28/18 11/28/18 11/28/18 04:28 04:28 06:23 WBC RBC 2.72 L Hgb 7.7 L Hct 22.8 L MCV MCH MCHC RDW 18.7 H Plt Count 125 L Lymph % (Auto) [place] % (Auto) Eos % (Auto) [place] # Seg Neutrophils % Seg Neuts % (Manual) Lymphocytes % (Manual) Eosinophils % (Manual) Seg Neutrophils # Lymphocytes # (Manual) POC ABG pH POC ABG pO2 ABG pO2 ABG Base Excess ABG Hemoglobin Oxyhemoglobin Sodium Potassium Chloride Carbon Dioxide BUN 23 H Creatinine 0.4 L Glucose 112 H POC Glucose 125 H Lactic Acid Calcium 8.0 L Magnesium AST ALT Alkaline Phosphatase Total Creatine Kinase CK-MB (CK-2) Troponin T NT-Pro-B Natriuret Pep Albumin Triglycerides LDL Cholesterol Direct HDL Cholesterol Urine WBC (Auto) Crossmatch 11/28/18 11/28/18 11/29/18 12:07 17:58 00:27 WBC RBC Hgb Hct MCV MCH MCHC RDW Plt Count Lymph % (Auto) [place] % (Auto) Eos % (Auto) [place] # Seg Neutrophils % Seg Neuts % (Manual) Lymphocytes % (Manual) Eosinophils % (Manual) Seg Neutrophils # Lymphocytes # (Manual) POC ABG pH POC ABG pO2 ABG pO2 ABG Base Excess ABG Hemoglobin Oxyhemoglobin Sodium Potassium Chloride Carbon Dioxide BUN Creatinine Glucose POC Glucose 138 H 138 H 207 H Lactic Acid Calcium Magnesium AST ALT Alkaline Phosphatase Total Creatine Kinase CK-MB (CK-2) Troponin T NT-Pro-B Natriuret Pep Albumin Triglycerides LDL Cholesterol Direct HDL Cholesterol Urine WBC (Auto) Crossmatch 11/29/18 11/29/18 11/29/18 05:33 12:52 18:28 WBC RBC Hgb Hct MCV MCH MCHC RDW Plt Count Lymph % (Auto) [place] % (Auto) Eos % (Auto) [place] # Seg Neutrophils % Seg Neuts % (Manual) Lymphocytes % (Manual) Eosinophils % (Manual) Seg Neutrophils # Lymphocytes # (Manual) POC ABG pH POC ABG pO2 ABG pO2 ABG Base Excess ABG Hemoglobin Oxyhemoglobin Sodium Potassium Chloride Carbon Dioxide BUN Creatinine Glucose POC Glucose 173 H 128 H 127 H Lactic Acid Calcium Magnesium AST ALT Alkaline Phosphatase Total Creatine Kinase CK-MB (CK-2) Troponin T NT-Pro-B Natriuret Pep Albumin Triglycerides LDL Cholesterol Direct HDL Cholesterol Urine WBC (Auto) Crossmatch 11/30/18 11/30/18 11/30/18 00:09 05:23 05:58 WBC RBC 2.60 L Hgb 7.3 L Hct 21.8 L MCV MCH MCHC RDW 18.6 H Plt Count 119 L Lymph % (Auto) [place] % (Auto) Eos % (Auto) [place] # Seg Neutrophils % Seg Neuts % (Manual) Lymphocytes % (Manual) Eosinophils % (Manual) Seg Neutrophils # Lymphocytes # (Manual) POC ABG pH POC ABG pO2 ABG pO2 ABG Base Excess ABG Hemoglobin Oxyhemoglobin Sodium Potassium Chloride Carbon Dioxide BUN Creatinine Glucose POC Glucose 172 H 134 H Lactic Acid Calcium Magnesium AST ALT Alkaline Phosphatase Total Creatine Kinase CK-MB (CK-2) Troponin T NT-Pro-B Natriuret Pep Albumin Triglycerides LDL Cholesterol Direct HDL Cholesterol Urine WBC (Auto) Crossmatch 11/30/18 11/30/18 11/30/18 05:58 12:07 17:50 WBC RBC Hgb Hct MCV MCH MCHC RDW Plt Count Lymph % (Auto) [place] % (Auto) Eos % (Auto) [place] # Seg Neutrophils % Seg Neuts % (Manual) Lymphocytes % (Manual) Eosinophils % (Manual) Seg Neutrophils # Lymphocytes # (Manual) POC ABG pH POC ABG pO2 ABG pO2 ABG Base Excess ABG Hemoglobin Oxyhemoglobin Sodium Potassium Chloride Carbon Dioxide 31 H BUN 23 H Creatinine 0.4 L Glucose 121 H POC Glucose 138 H 192 H Lactic Acid Calcium 8.1 L Magnesium AST ALT Alkaline Phosphatase Total Creatine Kinase CK-MB (CK-2) Troponin T NT-Pro-B Natriuret Pep Albumin Triglycerides LDL Cholesterol Direct HDL Cholesterol Urine WBC (Auto) Crossmatch 12/01/18 12/01/18 12/01/18 01:25 05:57 05:58 WBC RBC Hgb Hct MCV MCH MCHC RDW Plt Count Lymph % (Auto) [place] % (Auto) Eos % (Auto) [place] # Seg Neutrophils % Seg Neuts % (Manual) Lymphocytes % (Manual) Eosinophils % (Manual) Seg Neutrophils # Lymphocytes # (Manual) POC ABG pH POC ABG pO2 ABG pO2 ABG Base Excess ABG Hemoglobin Oxyhemoglobin Sodium Potassium Chloride Carbon Dioxide BUN Creatinine Glucose POC Glucose 133 H < 40 L 148 H Lactic Acid Calcium Magnesium AST ALT Alkaline Phosphatase Total Creatine Kinase CK-MB (CK-2) Troponin T NT-Pro-B Natriuret Pep Albumin Triglycerides LDL Cholesterol Direct HDL Cholesterol Urine WBC (Auto) Crossmatch 12/01/18 12/01/18 12/01/18 06:45 06:45 12:15 WBC RBC 2.60 L Hgb 7.2 L Hct 21.7 L MCV MCH MCHC RDW 18.5 H Plt Count 124 L Lymph % (Auto) [place] % (Auto) Eos % (Auto) [place] # Seg Neutrophils % Seg Neuts % (Manual) Lymphocytes % (Manual) Eosinophils % (Manual) Seg Neutrophils # Lymphocytes # (Manual) POC ABG pH POC ABG pO2 ABG pO2 ABG Base Excess ABG Hemoglobin Oxyhemoglobin Sodium Potassium Chloride Carbon Dioxide 32 H BUN 23 H Creatinine 0.4 L Glucose 139 H POC Glucose 136 H Lactic Acid Calcium 8.0 L Magnesium AST ALT Alkaline Phosphatase Total Creatine Kinase CK-MB (CK-2) Troponin T NT-Pro-B Natriuret Pep Albumin Triglycerides LDL Cholesterol Direct HDL Cholesterol Urine WBC (Auto) Crossmatch 12/01/18 12/01/18 12/02/18 18:19 23:19 05:59 WBC RBC Hgb Hct MCV MCH MCHC RDW Plt Count Lymph % (Auto) [place] % (Auto) Eos % (Auto) [place] # Seg Neutrophils % Seg Neuts % (Manual) Lymphocytes % (Manual) Eosinophils % (Manual) Seg Neutrophils # Lymphocytes # (Manual) POC ABG pH POC ABG pO2 ABG pO2 ABG Base Excess ABG Hemoglobin Oxyhemoglobin Sodium Potassium Chloride Carbon Dioxide BUN Creatinine Glucose POC Glucose 152 H 208 H 107 H Lactic Acid Calcium Magnesium AST ALT Alkaline Phosphatase Total Creatine Kinase CK-MB (CK-2) Troponin T NT-Pro-B Natriuret Pep Albumin Triglycerides LDL Cholesterol Direct HDL Cholesterol Urine WBC (Auto) Crossmatch 12/02/18 12/02/18 12/02/18 12:05 17:42 18:10 WBC RBC Hgb Hct MCV MCH MCHC RDW Plt Count Lymph % (Auto) [place] % (Auto) Eos % (Auto) [place] # Seg Neutrophils % Seg Neuts % (Manual) Lymphocytes % (Manual) Eosinophils % (Manual) Seg Neutrophils # Lymphocytes # (Manual) POC ABG pH POC ABG pO2 ABG pO2 ABG Base Excess ABG Hemoglobin Oxyhemoglobin Sodium Potassium Chloride Carbon Dioxide BUN Creatinine Glucose POC Glucose 151 H 137 H Lactic Acid Calcium Magnesium AST ALT Alkaline Phosphatase Total Creatine Kinase CK-MB (CK-2) Troponin T NT-Pro-B Natriuret Pep Albumin Triglycerides LDL Cholesterol Direct HDL Cholesterol Urine WBC (Auto) Crossmatch See Detail 12/02/18 12/03/18 12/03/18 21:59 00:26 05:54 WBC RBC Hgb Hct MCV MCH MCHC RDW Plt Count Lymph % (Auto) [place] % (Auto) Eos % (Auto) [place] # Seg Neutrophils % Seg Neuts % (Manual) Lymphocytes % (Manual) Eosinophils % (Manual) Seg Neutrophils # Lymphocytes # (Manual) POC ABG pH POC ABG pO2 ABG pO2 ABG Base Excess ABG Hemoglobin Oxyhemoglobin Sodium Potassium Chloride Carbon Dioxide BUN Creatinine Glucose POC Glucose 170 H 153 H 159 H Lactic Acid Calcium Magnesium AST ALT Alkaline Phosphatase Total Creatine Kinase CK-MB (CK-2) Troponin T NT-Pro-B Natriuret Pep Albumin Triglycerides LDL Cholesterol Direct HDL Cholesterol Urine WBC (Auto) Crossmatch Allied health notes reviewed: nursing
[2018-12-03] MEDS: NORVASC PO SCH (10:21)
[2018-12-03] MEDS: HEPARIN SUB-Q SCH (10:21)
[2018-12-03] MEDS: PREVACID SOLUTAB FEEDTUBE SCH (10:21)
[2018-12-03 14:45] LABS: Basophils # (Auto) 0.2 K/mm3 (0.0-0.1); Basophils % (Auto) 2.2 % (0.0-1.8); Eosinophils # (Auto) 0.3 K/mm3 (0.0-0.4); Eosinophils % (Auto) 4.1 % (0.0-4.3); Hematocrit 27.9 % (35.5-45.6); Hemoglobin 9.1 gm/dl (11.8-15.2); Lymphocytes # (Auto) 1.8 K/mm3 (1.2-5.4); Lymphocytes % (Auto) 22.2 % (13.4-35.0); Mean Corpuscular HGB Conc 33 % (32-34); Mean Corpuscular Volume 84 fl (84-94); Monocytes # (Auto) 1.2 K/mm3 (0.0-0.8); Platelet Count 142 K/mm3 (140-440); Red Blood Count 3.33 M/mm3 (3.65-5.03); Red Cell Distribution Width 18.3 % (13.2-15.2)
--- NOTE | 2018-12-03 15:02 | Consultation ---
History of Present Illness Consult date: 12/03/18 Chief complaint: Sacral pressure ulcer - History of present illness History of present illness: 77 yo male with Type 2 DM, acute on chronic respiratory failure and chronic hypoxic encephalopathy. 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 Past History Past Medical History: CAD, diabetes (Acute on chronic respiratory failure; chronic hypoxic encephalopathy), hypertension (chronic resp failure, renal insuff, hypoxic encephalopathy), sarcoidosis, other Past Surgical History: Other (trach) Social history: , other (lives in [place]) Family history: hypertension Medications and Allergies Allergies Allergy/AdvReac Type Severity Reaction Status Date / Time No Known Allergies Allergy Verified 08/12/18 21:47 Home Medications Medication Instructions Recorded Confirmed Last Taken Type Amantadine [Symmetrel] 100 mg FEEDTUBE DAILY 08/18/18 11/14/18 08/13/18 History Amlodipine Besylate [Norvasc] 5 mg FEEDTUBE DAILY 08/18/18 11/14/18 08/13/18 History Ascorbic Acid [Vitamin C Oral Liq] 500 mg FEEDTUBE QDAY 08/18/18 11/14/18 08/13/18 History Atorvastatin Calcium [Lipitor] 40 mg FEEDTUBE DAILY 08/18/18 11/14/18 08/13/18 History Bisacodyl [Dulcolax suppos] 10 mg MI QDAY PRN 08/18/18 11/14/18 Unknown History Docusate Sodium [Colace ORAL LIQ] 100 mg FEEDTUBE QDAY PRN 08/18/18 11/14/18 Unknown History Ferrous Sulfate [Ferrous Sulfate 7.5 ml FEEDTUBE DAILY 08/18/18 11/14/18 08/13/18 History 220 MG/5 ML] Glycopyrrolate [Robinul] 2 mg FEEDTUBE Q8H 08/18/18 11/14/18 08/13/18 History Insulin Glargine,Hum.rec.anlog 40 unit SQ HS 08/18/18 11/14/18 08/12/18 History [Basaglar Kwikpen U-100] Lacosamide [Vimpat] 1 tab FEEDTUBE Q12HR 08/18/18 11/14/18 Unknown History Acetaminophen 650 mg FEEDTUBE Q12H PRN 09/28/18 11/14/18 Unknown History Aspirin [Aspirin BABY CHEW TAB] 81 mg FEEDTUBE QDAY 09/28/18 11/14/18 Unknown History Benazepril HCl [Lotensin] 10 mg FEEDTUBE QDAY 09/28/18 11/14/18 Unknown History Lispro Insulin [HumaLOG] See Protocol SQ ACHS 09/28/18 11/14/18 Unknown History Tamsulosin [Flomax] 0.4 mg FEEDTUBE QDAY 09/28/18 11/14/18 Unknown History guaiFENesin [Mucus-Chest 200 mg FEEDTUBE Q4H PRN 09/28/18 11/14/18 Unknown History Congestion] Famotidine [Pepcid] 20 mg PO QDAY #30 tablet 10/09/18 11/14/18 Unknown Rx Furosemide [Lasix TAB] 40 mg PO QDAY #30 tablet 10/09/18 11/14/18 Unknown Rx Ipratropium/Albuterol Sulfate 1 ampul IH Q6HRT #90 ampul.neb 10/09/18 11/14/18 Unknown Rx [DUONEB *Not for PRN Use*] Sucralfate [Carafate] 1 gm FEEDTUBE Q8H oral.liqd 10/09/18 11/14/18 Unknown Rx Active Meds: Active Medications Albuterol (Proventil) 2.5 mg IH Q6HRT PRN PRN Reason: Shortness Of Breath Amlodipine Besylate (Norvasc) 5 mg PO QDAY [facility] Last Admin: 12/03/18 10:21 Dose: 5 mg Documented by: Lipase/Protease/Amylase (Juana Alas 10,500 Unit) 1 each FEEDTUBE PRN PRN PRN Reason: For Clogged Feeding Tube Glycopyrrolate (Robinul) 2 mg PO Q8HR [facility] Last Admin: 12/03/18 13:13 Dose: 2 mg Documented by: Heparin Sodium (Porcine) (Heparin) 5,000 unit SUB-Q Q12HR [facility] Last Admin: 12/03/18 10:21 Dose: 5,000 unit Documented by: Hydralazine HCl (Apresoline) 10 mg IV Q4H PRN PRN Reason: Blood Pressure Last Admin: 12/03/18 13:13 Dose: 10 mg Documented by: Hydrophilic Ointment (Vaseline Lip Therapy) 1 applic TP Q2HR PRN PRN Reason: Dry Lips Last Admin: 12/02/18 07:58 Dose: 1 applic Documented by: Insulin Glargine (Lantus) 20 units SUB-Q QHS [facility] Last Admin: 12/02/18 21:57 Dose: 20 units Documented by: Insulin Human Lispro (Humalog) 0 unit SUB-Q Q6HR [facility]; Protocol Last Admin: 12/03/18 13:14 Dose: Not Given Documented by: Lansoprazole (Prevacid Solutab) 30 mg FEEDTUBE QDAY [facility] Last Admin: 12/03/18 10:21 Dose: 30 mg Documented by: Multi-Ingred Cream/Lotion/Oil/Oint (Artificial Tears Ophth Oint) 1 applic OU Q4HR PRN PRN Reason: Dry Eye(s) Last Admin: 11/30/18 09:08 Dose: 1 applic Documented by: Scopolamine (Transderm-Scop) 1 each TD Q3D [facility] Last Admin: 12/01/18 15:30 Dose: 1 each Documented by: Simple Syrup (Simple Syrup) 15 ml FEEDTUBE PRN PRN PRN Reason: Hypoglycemia Simple Syrup (Simple Syrup) 30 ml FEEDTUBE PRN PRN PRN Reason: Hypoglycemia Sodium Bicarbonate (Sodium Bicarbonate) 325 mg FEEDTUBE PRN PRN PRN Reason: For Clogged Feeding Tube Sodium Hypochlorite (Dakin's Half Strength) 1 applic TP BID [facility] Last Admin: 12/03/18 10:23 Dose: 1 applicatio Documented by: Review of Systems ROS unobtainable: due to mental status Exam Vital Signs BP Pulse Ox 111/55 100 11/13/18 13:29 11/13/18 13:29 - General physical appearance Positive: well developed, well nourished, no distress - Eyes Positive: PERRL, normal occular movement - ENT Positive: normal pinna, normal nares, normal mucosa, no hearing loss, no congestion - Neck Positive: no masses (Tracheostomy is in place.), no bruits, trachea midline, no venous distension - Respiratory Positive: normal expansion, normal respiratory effort, clear to auscultation - Cardiovascular Rhythm: regular Heart Sounds: Present: S1 & S2. Absent: rub, click - Extremities Extremities: no ischemia, pulses symmetrical, No edema - Breasts Breasts: deferred - Abdomen Abdomen: Present: soft, bowel sounds normal. Absent: tender, distended Hernia: none - Genitourinary Male Genitourinary: scrotal edema - Rectum Rectum: other (Rectal tube in place) - Integumentary other (There is a 12 X 9 X 2 cm unstageable sacral pressure ulcer draining a moderate amount of yellow purulent fluid.) - Neurologic Neurologic: other (Unresponsive) Results - Labs 12/03/18 14:23 12/01/18 06:45 Abnormal lab results 11/13/18 12/02/18 12/02/18 Range/Units 14:49 17:42 18:10 RBC (3.65-5.03) M/mm3 Hgb (11.8-15.2) gm/dl MCH (28-32) pg RDW (13.2-15.2) % [place] % (Auto) (0.0-7.3) % Baso % (Auto) (0.0-1.8) % [place] # (0.0-0.8) K/mm3 Baso # (0.0-0.1) K/mm3 POC Glucose 137 H (70-105) Crossmatch See Detail See Detail 12/02/18 12/03/18 12/03/18 Range/Units 21:59 00:26 05:54 RBC (3.65-5.03) M/mm3 Hgb (11.8-15.2) gm/dl MCH (28-32) pg RDW (13.2-15.2) % [place] % (Auto) (0.0-7.3) % Baso % (Auto) (0.0-1.8) % [place] # (0.0-0.8) K/mm3 Baso # (0.0-0.1) K/mm3 POC Glucose 170 H 153 H 159 H (70-105) Crossmatch 12/03/18 12/03/18 Range/Units 12:27 14:23 RBC 3.33 L (3.65-5.03) M/mm3 Hgb 9.1 L (11.8-15.2) gm/dl MCH 27 L (28-32) pg RDW 18.3 H (13.2-15.2) % [place] % (Auto) 15.0 H (0.0-7.3) % Baso % (Auto) 2.2 H (0.0-1.8) % [place] # 1.2 H (0.0-0.8) K/mm3 Baso # 0.2 H (0.0-0.1) K/mm3 POC Glucose 145 H (70-105) Crossmatch Assessment and Plan - Patient Problems (1) Unstageable pressure ulcer of sacral region Current Visit: Yes Status: Acute Plan to address problem: 1) I will debride the sacral pressure ulcer today. 2) Intense nutritional support 3) Off loading is critical 4) Pt has a poor prognosis.
--- NOTE | 2018-12-03 15:23 | Discharge Summary ---
Providers - Providers Date of Admission: 11/13/18 15:30 Date of discharge: 12/03/18 Attending physician: GALE PRAJAPATI 11/13/18 21:21 Consult to Physician [CONS] Stat Comment: Consulting Provider: PRIYANK JACKSON Physician Instructions: Reason For Exam: stem cutter ccu 11/14/18 03:19 Consult to Physician [CONS] Routine Comment: Consulting Provider: RIKKI AVALOS Physician Instructions: Reason For Exam: Sepsis 11/14/18 12:25 Consult to Dietitian/Nutrition [CONS] Routine Physician Instructions: Reason For Exam: Tube Feeding Reason for Consult: Write/Manage Tube Feeding 11/15/18 08:46 Consult to Wound/ET Nurse [CONS] Routine Reason For Exam: wound eval 11/16/18 11:27 Consult to Physician [CONS] Routine Comment: Consulting Provider: LUANNE LAWRENCE Physician Instructions: Reason For Exam: evaluate sacral wound for debidement 11/16/18 11:29 Consult to Physician [CONS] Routine Comment: Consulting Provider: LUANNE LAWRENCE Physician Instructions: Reason For Exam: Sacral decub ulcer 11/17/18 13:53 Consult to PICC Line RN [CONS] Routine Reason For Exam: IV pressors Type Line:: PICC 11/18/18 11:21 Consult to PICC Line RN [CONS] Routine Reason For Exam: IV access Type Line:: Midline 12/01/18 13:32 Consult to Dietitian/Nutrition [CONS] Routine Physician Instructions: Assess nutrtn needs, initiate, modify, manage TF Reason For Exam: Reason for Consult: Write/Manage Tube Feeding Reason for Consult: Write/Manage Tube Feeding 12/02/18 15:52 Consult to Physician [CONS] Routine Comment: Consulting Provider: ALEXANDR ALMANZAR Physician Instructions: Reason For Exam: eval for wounds debridement Primary care physician: NIMCO PATEL Hospitalization Reason for admission: resp failure Condition: Critical Hospital course: Patient is 77 yo resident at with chronic resp failure s/p trach, diabetes, BPH, hypertension, chronic hypoxic encephalopatyhy who was [facility] because of difficulty breathing, respiratory distress. He was seen and evaluated in ED and diagnosed with acute on chronic respiratory failure failure and hypotension. He was put on ventilator since he already had a tracheostomy. He was diagnosed with sepsis with septic shock, started on iv Abx and previously required pressors. The pt had a prolonged hospital course with vent and pressor weaning eventually stabilizing. He remained only minimally responsive throughout the hospital stay. Patient has sacral decub ulcer and had debridement surgery by Dr. Marvin. After weaning off pressors and mech vent, he was transferred to [facility]. Pt was noted to have sepsis sec to VRE bacteremia and was seen by ID. The sourse was believed to be the aformentioned sacral wound. ID reported TTE poor windows, if repeat blood cultures remain negative, would not recommend GLORIA since overall prognosis remains extremely poor and he is not going to be a candidate for any valve surgeries. Repeat blood cultures are negative. Pt was treated with Zyvox for 2 weeks. Overall prognosis remained extremely poor and thus hospice was d/w who after several day of deliberation agreed to home hospice, CM arranged home hospice. D/C time 35 minutes Disposition: DC-50 TO HOSPICE (HOME) Time spent for discharge: 35 - Discharge Diagnoses (1) Anemia Status: Acute Qualifiers: Anemia type: unspecified type Qualified Code(s): D64.9 - Anemia, unspecified (2) Fever Status: Acute Qualifiers: Fever type: unspecified Qualified Code(s): R50.9 - Fever, unspecified (3) Hypotension Status: Acute Qualifiers: Hypotension type: hypotension due to hypovolemia Qualified Code(s): I95.89 - Other hypotension; E86.1 - Hypovolemia (4) Hypoxia Status: Acute (5) Hypoxic encephalopathy Status: Acute (6) Respiratory distress Status: Acute (7) Sacral decubitus ulcer Status: Acute Qualifiers: Pressure injury stage: unspecified pressure injury stage Qualified Code(s): L89.159 - Pressure ulcer of sacral region, unspecified stage (8) Septic shock Status: Acute (9) Urinary tract infection Status: Acute Qualifiers: Urinary tract infection type: acute cystitis Hematuria presence: with hematuria Qualified Code(s): N30.01 - Acute cystitis with hematuria (10) MAYLIN (acute kidney injury) Status: Acute (11) Acute and chronic respiratory failure Status: Acute Qualifiers: Respiratory failure complication: hypoxia Qualified Code(s): J96.21 - Acute and chronic respiratory failure with hypoxia (12) Essential (primary) hypertension Status: Acute (13) Leukocytosis Status: Acute (14) Type 2 diabetes mellitus without complications Status: Acute (15) History of CVA (cerebrovascular accident) Status: Chronic (16) History of tracheostomy Status: Chronic Core Measure Documentation - Palliative Care Palliative Care/ Comfort Measures: Hospice Care - Core Measures Any of the following diagnoses?: none Exam - Constitutional Vitals: Temp Pulse Resp BP Pulse Ox 96.9 F L 77 14 183/69 93 12/03/18 12:00 12/03/18 13:13 12/03/18 10:00 12/03/18 13:13 12/03/18 10:00 General appearance: Present: no acute distress, well-nourished, other (trach) - EENT Eyes: Present: PERRL ENT: hearing intact, clear oral mucosa - Neck Neck: Present: supple, normal ROM - Respiratory Respiratory effort: normal Respiratory: bilateral: CTA - Cardiovascular Heart Sounds: Present: S1 & S2. Absent: rub, click - Extremities Extremities: pulses symmetrical, No edema Peripheral Pulses: within normal limits - Abdominal General gastrointestinal: Present: soft, non-tender, non-distended, normal bowel sounds Male genitourinary: Present: normal - Integumentary Body Four View: 1 - sacral wound - Musculoskeletal Musculoskeletal: gait normal, strength equal bilaterally - Psychiatric Psychiatric: appropriate mood/affect, intact judgment & insight - Neurologic Neurologic: other (encephalopathic) Plan Activity: other (per hospice) Weight Bearing Status: Full Weight Bearing Diet: other (tube feeds) Wound: per your surgeon's advice, per wound nurse instructions Follow up with: NIMCO PATEL MD [Primary Care Provider] - 3-5 Days
--- NOTE | 2018-12-03 15:25 | Procedure Note ---
Date of procedure: 12/03/18 Pre-op diagnosis: Unstageable sacral pressure ulcer Post-op diagnosis: other (Stage 4 sacral pressure ulcer) Procedure: Debridement of sacral pressure ulcer Description of procedure: Pt was placed right side down on his bed. The sacral area was prepped and draped. An excisional, surgical debridement of necrotic skin, SQ tissue, muscle and fascia was performed with forceps and scissors. Bleeding was minimal and was controlled with pressure. Wound was dressed by the Wound Care nurse. Pt tolerated the procedure well. Final wound measurements were as follows: 13.5 X 10 X 3 cm Anesthesia: none Surgeon: ALEXANDR ALMANZAR Estimated blood loss: minimal Pathology: none Specimen disposition: discarded Condition: stable Disposition: no change
[2018-12-03 16:10] VITALS: BP 136/67
== END 2018-12-03 18:00 | disposition hospice, home (50) | DRG 853 ==
LOC: ED 13:25 → CC1 15:30 → IMCU 11-26 14:48
PROVIDERS: ADMIT Internal Medicine; ATTEND Hospitalist
PROC: 5A1955Z Respiratory Ventilation, Greater than 96 Consecutive Hours (ICD-10-PCS; principal; 2018-11-13)
PROC: 4A033R1 Measurement of Arterial Saturation, Peripheral, Percutaneous Approach (ICD-10-PCS; 2018-11-13)
PROC: 06HM33Z Insertion of Infusion Device into Right Femoral Vein, Percutaneous Approach (ICD-10-PCS; 2018-11-13)
PROC: B54BZZA Ultrasonography of Right Lower Extremity Veins, Guidance (ICD-10-PCS; 2018-11-13)
PROC: 3E0234Z Introduction of Serum, Toxoid and Vaccine into Muscle, Percutaneous Approach (ICD-10-PCS; 2018-11-14)
PROC: 30233N1 Transfusion of Nonautologous Red Blood Cells into Peripheral Vein, Percutaneous Approach (ICD-10-PCS; 2018-11-14)
PROC: 05HY33Z Insertion of Infusion Device into Upper Vein, Percutaneous Approach (ICD-10-PCS; 2018-11-19)
PROC: 0KBP0ZZ Excision of Left Hip Muscle, Open Approach (ICD-10-PCS; 2018-12-03)
DX: A41.81 Sepsis due to Enterococcus (principal); L89.154 Pressure ulcer of sacral region, stage 4; J18.1 Lobar pneumonia, unspecified organism; R65.21 Severe sepsis with septic shock; J96.21 Acute and chronic respiratory failure with hypoxia; G93.41 Metabolic encephalopathy; N30.01 Acute cystitis with hematuria; N17.9 Acute kidney failure, unspecified; E87.0 Hyperosmolality and hypernatremia; G93.1 Anoxic brain damage, not elsewhere classified; R18.8 Other ascites; D61.818 Other pancytopenia; B17.9 Acute viral hepatitis, unspecified; I50.9 Heart failure, unspecified; E87.6 Hypokalemia; Z16.22 Resistance to vancomycin related antibiotics; E83.42 Hypomagnesemia; I11.0 Hypertensive heart disease with heart failure; E78.5 Hyperlipidemia, unspecified; I25.10 Atherosclerotic heart disease of native coronary artery without angina pectoris; N40.0 Benign prostatic hyperplasia without lower urinary tract symptoms; K76.0 Fatty (change of) liver, not elsewhere classified; R13.12 Dysphagia, oropharyngeal phase; D63.8 Anemia in other chronic diseases classified elsewhere; E11.65 Type 2 diabetes mellitus with hyperglycemia; Z79.4 Long term (current) use of insulin; Z86.73 Personal history of transient ischemic attack (TIA), and cerebral infarction without residual deficits; Z93.1 Gastrostomy status; Z23 Encounter for immunization
CPT/HCPCS: 31720; 36415; 36430; 36600; 71045; 76705; 80048; 80053; 80061; 80074; 81001; 82140; 82270; 82550; 82553; 82803; 82962; 83735; 83880; 84484; 85007; 85025; 85027; 86850; 86900; 86901; 86920; 87040; 87086; 87116; 87186; 87205; 87806; 90732; 93005; 93010; 93308; 93321; 93325; 94002; 94003; 94760; G0378; A6260; C9113; J0360; J0692; J1250; J1644; J1815; J1940; J2020; J2765; J3370; J3475; J3480; J7030; J7040; J7050; P9016